=== PATIENT | male | born 1950 ===

== ENCOUNTER 2016-11-06 20:25 | Observation (INO) | payer MEDICARE, SELFPAY ==
[2016-11-06 20:26] VITALS: BMI 26.3
[2016-11-06] MEDS ORDERED: Albuterol-Ipratrop 3 mg / 0.5 (3 ml) UD INH STA (20:41)
[2016-11-06] MEDS ORDERED: Azithromycin 500 MG in Sodium Chloride 0.9% 250 ML IV STA (20:41)
[2016-11-06] MEDS ORDERED: Albuterol-Ipratrop 3 mg / 0.5 (3 ml) UD ONE (20:48)
[2016-11-06 20:56] LABS: BASO # 0.1 K/uL (0.0-0.2); BASO % 1.1 % (0.0-2.0); EOS # 0.2 K/uL (0.0-0.7); EOS % 1.9 % (0.0-4.0); HEMATOCRIT 34.5 % (35.0-51.0); LYMPH # 2.5 K/uL (1.0-4.3); LYMPH % 22.2 % (20.0-40.0); MEAN CELL VOLUME 70.4 fL (80.0-94.0); MEAN CORPUSCULAR HEMOGLOBIN 22.6 pg (27.0-31.0); MEAN CORPUSCULAR HGB CONC 32.1 g/dL (33.0-37.0); MONO # 0.8 K/uL (0.0-0.8); MONO % 6.9 % (0.0-10.0); RED CELL DISTRIBUTION WIDTH 19.9 % (11.5-14.5); WHITE BLOOD COUNT 11.4 K/uL (4.8-10.8)
[2016-11-06 21:25] LABS: ABG ALLEN TEST POS; ARTERIAL BLOOD HGB O2 SAT 95.9 % (95.0-98.0); CARBOXYHEMOGLOBIN 0 % (0.5-1.5); DRAW SITE RBA; HHB 4.1 % (0.0-5.0)
[2016-11-06] MEDS ORDERED: Azithromycin 500mg/250ML NS 250 ML IVPB ONE ×2 (21:25→21:28)
[2016-11-06 21:33] LABS: CHLORIDE 96 mmol/L (98-107); POTASSIUM 3.8 mmol/L (3.6-5.2); SODIUM 138 mmol/L (132-148)
[2016-11-06 21:35] LABS: BILIRUBIN,TOTAL 0.2 mg/dL (0.2-1.3); GFR AFRICAN-AMERICAN > 60
[2016-11-06 21:36] LABS: ALB/GLOB RATIO 1.4 (1.0-2.1); ALKALINE PHOSPHATASE 145 U/L (38-126); ALT/SGPT 36 U/L (21-72); AST/SGOT 31 U/L (17-59); BLOOD UREA NITROGEN 4 mg/dL (9-20); CARBON DIOXIDE 25 mmol/L (22-30); GLUCOSE,RANDOM 100 mg/dL (75-110)
[2016-11-06 21:37] LABS: CALCIUM 9.1 mg/dl (8.6-10.4)
--- NOTE | 2016-11-06 21:43 | C.PDOC ---
History Of Present Illness 66 year old patient, with a past medical history of anxiety, hypertension, hypercholesterolemia, arthritis, asthma, bronchitis, CHF, COPD, pneumonia, chronic kidney disease, diabetes, emphysema, gastritis, and sleep apnea, presents to the ED complaining of shortness of breath. Patient was recently admitted on 10/19/16 for COPD exacerbation. Patient is on home O2 at 2 liters for 24 hours a day. Patient denies chest pain, vomiting, abdominal pain, numbness or weakness. Time Seen by Provider: 11/06/16 20:37 Chief Complaint (Nursing): Shortness Of Breath History Per: Patient History/Exam Limitations: no limitations Onset/Duration Of Symptoms: Worse Since (today) Current Symptoms Are (Timing): Still Present Initiating Event: Upper Respiratory Illness Current Respiratory Medications: See Home Med List Severity: Mild Pain Scale Rating Of: 3 Reports Recently: Hospitalized Recent travel outside of the [place]: No Additional History Per: Prior Records Past Medical History Reviewed: Historical Data, Nursing Documentation, Vital Signs Vital Signs: Last Vital Signs Temp 97.6 F 11/06/16 22:42 Pulse 94 H 11/07/16 00:04 Resp 14 11/07/16 00:03 BP 115/67 11/07/16 00:03 Pulse Ox 99 11/07/16 00:03 - Medical History PMH: Anxiety, Arthritis (BACK; KNEES), Asthma, Bronchitis, CHF, COPD, Diabetes, Emphysema, Gastritis, HTN, Hypercholesterolemia, Pneumonia, Chronic Kidney Disease, Sleep Apnea - [facility] Procedures ASSISTANCE WITH RESPIRATORY VENTILATION, 24-96 HRS, CPAP (10/07/16) ASSISTANCE WITH RESPIRATORY VENTILATION, <24 HRS, CPAP (07/08/16) ASSISTANCE WITH RESPIRATORY VENTILATION, >96 HRS, CPAP (08/09/16) CONTINUOUS INVASIVE MECHANICAL VENTILATION <96 CONSEC HRS (11/29/14) INFLUENZA VACCINATION (06/02/14) INSERT ENDOTRACHEAL TUBE (11/29/14) LARYGNOSCOPY AND OTH TRACHEOSCOPY (04/18/15) MEASURE OF CARDIAC SAMPL & PRESSURE, L HEART, PERC APPROACH (12/01/15) NON-INVASIVE MECHANICAL VENTILATION (04/18/15) Family History: States: Unknown Family Hx - Social History Hx Tobacco Use: Yes (8 years ppd smoker. quit 1.5 years ago) Hx Alcohol Use: No Hx Substance Use: No - Immunization History Hx Tetanus Toxoid Vaccination: Yes Hx Influenza Vaccination: Yes Hx Pneumococcal Vaccination: Yes Review Of Systems Except As Marked, All Systems Reviewed And Found Negative. Cardiovascular: Negative for: Chest Pain Respiratory: Positive for: Shortness of Breath Gastrointestinal: Negative for: Vomiting, Abdominal Pain Neurological: Negative for: Weakness, Numbness Physical Exam - Physical Exam Appears: Non-toxic, Other (mild distress) Skin: Warm, Dry Head: Atraumatic, Normacephalic Eye(s): bilateral: Normal Inspection, PERRL, EOMI Ear(s): Bilateral: Normal Nose: Normal Oral Mucosa: Moist Throat: Normal Neck: Normal ROM, Supple Chest: Symmetrical Cardiovascular: Rhythm Regular (tachycardic) Respiratory: No Rales, No Rhonchi, No Wheezing, Other (distant lung sounds) Gastrointestinal/Abdominal: Soft, No Tenderness Back: Normal Inspection, No CVA Tenderness Extremity: Normal ROM Neurological/Psych: Oriented x3, Normal Speech, Normal Cognition Gait: Steady ED Course And Treatment - Laboratory Results Result Diagrams: 11/06/16 20:49 11/06/16 20:49 Lab Interpretation: Normal (abg wnl, no CO2 retention) ECG: Interpreted By Nv ECG Rhythm: Sinus Tachycardia ECG Interpretation: Abnormal Rate From EC (bpm) O2 Sat by Pulse Oximetry: 99 (RA) Pulse Ox Interpretation: Normal - Radiology CXR: Interpreted by Nv CXR Interpretation: Yes: No Acute Disease, Other (+ hyperinflated) Progress Note: Plan: ABG, EKG, Labs, Chest XR, Duoneb, Solu-Medrol, Zithromax Reevaluation Time: 21:43 Reassessment Condition: Improved - Physician Consult Information Outcome Of Conversation: [id number]: d/w Dr. Sarah lombardi to tele Obs Medical Decision Making Medical Decision Making: copd exacerbation Disposition Doctor Will See Patient In The: Hospital Counseled Patient/Family Regarding: Studies Performed, Diagnosis - Disposition Disposition: HOSPITALIZED Disposition Time: 21:43 Condition: GOOD - Clinical Impression Clinical Impression: Chronic obstructive lung disease - Scribe Statement The provider has reviewed the documentation as recorded by the Scribe Katie Benitez Provider Attestation: All medical record entries made by the Scribe were at my direction and personally dictated by me. I have reviewed the chart and agree that the record accurately reflects my personal performance of the history, physical exam, medical decision making, and the department course for this patient. I have also personally directed, reviewed, and agree with the discharge instructions and disposition.
[2016-11-06] MEDS: MethylPREDNISolone 40 mg Vial IVP SCH (22:44)
[2016-11-06] MEDS: (Novolin R) Insulin Human Regular 100 units/ml vial SC SCH (23:01)
[2016-11-07] MEDS ORDERED: Albuterol-Ipratrop 3 mg / 0.5 (3 ml) UD ONE (02:21)
[2016-11-07] MEDS: Albuterol-Ipratrop 3 mg / 0.5 (3 ml) UD INH SCH ×3 (02:22→13:20)
[2016-11-07] MEDS ORDERED: Fluticasone-Salmeterol 250-50mcg Diskus INH SCH (08:00)
[2016-11-07] MEDS ORDERED: Budesonide 0.5 mg/2 ml Inhal Susp UD INH SCH (08:00)
[2016-11-07] MEDS ORDERED: (Novolin R) Insulin Human Regular 100 units/ml vial ONE (08:11)
[2016-11-07] MEDS: (Novolin R) Insulin Human Regular 100 units/ml vial SC SCH ×2 (08:13→11:48)
--- NOTE | 2016-11-07 08:21 | RAD ---
PROCEDURE: CHEST RADIOGRAPH, 1 VIEW HISTORY: Shortness of breath COMPARISON: 10/19/2016 FINDINGS: LUNGS: Mild blunting of the left costophrenic angle. PLEURA: No pneumothorax or pleural fluid seen. CARDIOVASCULAR: Normal. OSSEOUS STRUCTURES: Degenerative changes in the spine. VISUALIZED UPPER ABDOMEN: Normal. OTHER FINDINGS: None. IMPRESSION: Mild blunting of the left costophrenic angle.
[2016-11-07] MEDS: MethylPREDNISolone 40 mg Vial IVP SCH (09:30)
[2016-11-07] MEDS ORDERED: (Lantus) Insulin Glargine, Recombinant SC ONE (09:35)
[2016-11-07] MEDS ORDERED: ARFORMOTEROL IH SCH (10:00)
[2016-11-07] MEDS ORDERED: (Lantus) Insulin Glargine, Recombinant SC SCH (10:00)
[2016-11-07] MEDS ORDERED: Enoxaparin 30 mg Syringe SC SCH (10:00)
[2016-11-07] MEDS ORDERED: Pantoprazole 40 mg EC Tab PO SCH (10:00)
--- NOTE | 2016-11-07 11:26 | CP.PCM.HP ---
History of Present Illness - History of Present Illness History of Present Illness: CC: shortness of breath 66 year old patient, with a past medical history of anxiety, hypertension, hypercholesterolemia, arthritis, asthma, bronchitis, CHF, COPD, pneumonia, chronic kidney disease, diabetes due to steriods , emphysema, gastritis, and sleep apnea, presents to the ED complaining of shortness of breath associated with chest tightness, chest congestion, coughing, denies any chest pain, blood sugars are good, he is complaint with diet, meds and follow up. Patient was recently admitted on 10/19/16 for COPD exacerbation. Patient is on home O2 at 2 liters for 24 hours a day. Patient denies chest pain, vomiting, abdominal pain, numbness or weakness. Review of Systems - Review of Systems Systems not reviewed;Unavailable: Acuity of Condition - Constitutional Constitutional: Fatigue, Lethargy - EENT Nose/Mouth/Throat: Nasal Congestion - Cardiovascular Cardiovascular: Dyspnea, Dyspnea on Exertion - Respiratory Respiratory: Cough, Dyspnea, Change in Mucous Color - Musculoskeletal Musculoskeletal: Arthralgias, Back Pain Past Patient History - Infectious Disease Hx of Infectious Diseases: None - Past Medical History & Family History Past Medical History?: Yes - Past Social History Smoking Status: Never Smoked - CARDIAC Hx Congestive Heart Failure: Yes Hx Hypercholesterolemia: Yes Hx Hypertension: Yes - PULMONARY Hx Asthma: Yes Hx Bronchitis: Yes Hx Chronic Obstructive Pulmonary Disease (COPD): Yes Hx Emphysema: Yes Hx Pneumonia: Yes Hx Sleep Apnea: Yes - NEUROLOGICAL Hx Neurological Disorder: No - HEENT Hx HEENT Problems: Yes Hx Cataracts: Yes (left cataract removed, r cataract) Other/Comment: wears eyeglasses for distance - RENAL Hx Chronic Kidney Disease: Yes - ENDOCRINE/METABOLIC Hx Endocrine Disorders: Yes Hx Diabetes Mellitus Type 2: Yes - HEMATOLOGICAL/ONCOLOGICAL Hx Blood Disorders: No - INTEGUMENTARY Hx Dermatological Problems: No - MUSCULOSKELETAL/RHEUMATOLOGICAL Hx Falls: Yes (Sunday11/05/16) - GASTROINTESTINAL Hx Gastritis: Yes - PSYCHIATRIC Hx Substance Use: No - SURGICAL HISTORY Hx Surgeries: Yes Hx Cataract Extraction: Yes (left eye, right eye) Hx Cardiac Catheterization: Yes (11/2015) Hx Eye Surgery: Yes Hx Pulmonary Surgery: Yes Other/Comment: LEFT EYE SURGERY - ANESTHESIA Hx Anesthesia: Yes Hx Anesthesia Reactions: No Hx Malignant Hyperthermia: No Meds Allergies/Adverse Reactions: Allergies Allergy/AdvReac Type Severity Reaction Status Date / Time acetaminophen [From Tylenol] Allergy RASH Verified 10/19/16 00:18 FISH Allergy SWELLING Verified 10/19/16 00:18 shrimp Allergy SHORTNESS Verified 10/19/16 00:18 OF BREATH Physical Exam - Constitutional Appears: No Acute Distress - Head Exam Head Exam: ATRAUMATIC, NORMAL INSPECTION, NORMOCEPHALIC - Eye Exam Eye Exam: EOMI, Normal appearance, PERRL Pupil Exam: NORMAL ACCOMODATION, PERRL - Respiratory Exam Respiratory Exam: Decreased Breath Sounds, Rhonchi, Wheezes - Cardiovascular Exam Cardiovascular Exam: REGULAR RHYTHM - GI/Abdominal Exam GI & Abdominal Exam: Normal Bowel Sounds, Soft. absent: Tenderness Results - Vital Signs Recent Vital Signs: Last Vital Signs Temp 97.6 F 11/06/16 22:42 Pulse 86 11/07/16 07:24 Resp 22 11/07/16 08:14 BP 106/72 11/07/16 07:24 Pulse Ox 99 11/07/16 08:14 - Labs Result Diagrams: 11/06/16 20:49 11/06/16 20:49 Labs: Laboratory Results - last 24 hr 11/06/16 11/07/16 22:51 08:04 POC Glucose (mg/dL) 109 239 H Assessment & Plan (1) Allergic rhinitis Status: Chronic Priority: Medium (2) Acute exacerbation of chronic obstructive pulmonary disease (COPD) Status: Acute Priority: High (3) Steroid-induced diabetes Status: Chronic - Assessment and Plan (Free Text) Plan: admoit pt detailed orders written
[2016-11-07 11:51] VITALS: RESP 20
--- NOTE | 2016-11-07 12:50 | CP.PCM.CON ---
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 The pt is here today for dyspnea w/ one episode of syncope that occurred on sunday late sunday night, the reports that the pt briefly lost consciousness but denied head trauma during that episode. The pt came to the ED after experiencing worsening symptoms of dyspnea. Pt is currently on 2L of home oxygen , currently on CPAP in the ED IPAP 12, EPAP 6, FiO2 30%, RR 10. Pt currently denies n/v/f/c, diarrhea, constipation, headache, LE edema, chest pain, palpitations. Review of Systems - Review of Systems All systems: reviewed and no additional remarkable complaints except - Constitutional Constitutional: absent: Chills, Fever - Cardiovascular Cardiovascular: Dyspnea, Syncope. absent: Chest Pain, Chest Pain at Rest, Leg Edema, Pedal Edema - Respiratory Respiratory: Dyspnea, Dyspnea on Exertion - Gastrointestinal Gastrointestinal: absent: Abdominal Pain, Constipation, Diarrhea - Neurological Neurological: Syncope, Vertigo. absent: Focal Weakness, Lack of Coordination, Loss of Vision, Tingling, Tremor, Weakness Past Patient History - Infectious Disease Hx of Infectious Diseases: None - Past Medical History & Family History Past Medical History?: Yes - Past Social History Smoking Status: Never Smoked - CARDIAC Hx Congestive Heart Failure: Yes Hx Hypercholesterolemia: Yes Hx Hypertension: Yes - PULMONARY Hx Asthma: Yes Hx Bronchitis: Yes Hx Chronic Obstructive Pulmonary Disease (COPD): Yes Hx Emphysema: Yes Hx Pneumonia: Yes Hx Sleep Apnea: Yes - NEUROLOGICAL Hx Neurological Disorder: No - HEENT Hx HEENT Problems: Yes Hx Cataracts: Yes (left cataract removed, r cataract) Other/Comment: wears eyeglasses for distance - RENAL Hx Chronic Kidney Disease: Yes - ENDOCRINE/METABOLIC Hx Endocrine Disorders: Yes Hx Diabetes Mellitus Type 2: Yes - HEMATOLOGICAL/ONCOLOGICAL Hx Blood Disorders: No - INTEGUMENTARY Hx Dermatological Problems: No - MUSCULOSKELETAL/RHEUMATOLOGICAL Hx Falls: Yes (Sunday11/05/16) - GASTROINTESTINAL Hx Gastritis: Yes - PSYCHIATRIC Hx Substance Use: No - SURGICAL HISTORY Hx Surgeries: Yes Hx Cataract Extraction: Yes (left eye, right eye) Hx Cardiac Catheterization: Yes (11/2015) Hx Eye Surgery: Yes Hx Pulmonary Surgery: Yes Other/Comment: LEFT EYE SURGERY - ANESTHESIA Hx Anesthesia: Yes Hx Anesthesia Reactions: No Hx Malignant Hyperthermia: No Meds Allergies/Adverse Reactions: Allergies Allergy/AdvReac Type Severity Reaction Status Date / Time acetaminophen [From Tylenol] Allergy RASH Verified 10/19/16 00:18 FISH Allergy SWELLING Verified 10/19/16 00:18 shrimp Allergy SHORTNESS Verified 10/19/16 00:18 OF BREATH - Medications Medications: Current Medications Albuterol/Ipratropium (Duoneb 3 Mg/0.5 Mg (3 Ml) Ud) 3 ml INH RQ6 [facility] Last Admin: 11/07/16 02:22 Dose: 3 ml Alprazolam (Xanax) 0.5 mg PO BID PRN PRN Reason: Anxiety Stop: 11/13/16 21:28 Budesonide (Pulmicort Respules) 0.5 mg INH RBID CHANCE Enoxaparin Sodium (Lovenox) 30 mg SC DAILY [facility] Last Admin: 11/07/16 09:29 Dose: 30 mg Home Med (Arformoterol Tartrate [Brovana]) 1 mauricio IH BID [facility] Insulin Glargine (Lantus) 16 unit SC DAILY [facility] Last Admin: 11/07/16 09:28 Dose: 16 units Insulin Human Regular (Novolin R) 4 unit SC ACHS [facility] Last Admin: 11/07/16 11:48 Dose: 4 unit Metformin HCl (Glucophage) 1,000 mg PO BID [facility] Last Admin: 11/07/16 09:28 Dose: 1,000 mg Methylprednisolone (Solu-Medrol) 40 mg IVP Q12 [facility] Last Admin: 11/07/16 09:30 Dose: 40 mg Montelukast Sodium (Singulair) 10 mg PO HS [facility] Last Admin: 11/06/16 23:02 Dose: 10 mg Pantoprazole Sodium (Protonix Ec Tab) 40 mg PO DAILY [facility] Last Admin: 11/07/16 09:31 Dose: 40 mg Roflumilast (Daliresp) 500 mcg PO DAILY [facility] Last Admin: 11/07/16 09:28 Dose: 500 mcg Rosuvastatin Calcium (Crestor) 10 mg PO HS [facility] Last Admin: 11/06/16 23:02 Dose: 10 mg Fluticasone/Salmeterol (Advair Diskus 250/50) 1 puff INH RBID CHANCE Physical Exam - Constitutional Appears: Well, Non-toxic, No Acute Distress - Head Exam Head Exam: ATRAUMATIC, NORMAL INSPECTION - Eye Exam Eye Exam: Normal appearance - ENT Exam ENT Exam: Normal Exam - Neck Exam Neck exam: Positive for: Normal Inspection - Respiratory Exam Respiratory Exam: Decreased Breath Sounds - Cardiovascular Exam Cardiovascular Exam: REGULAR RHYTHM, +S1, +S2 - Neurological Exam Neurological exam: Alert, Oriented x3 - Skin Skin Exam: Dry, Normal Color, Warm Results - Vital Signs Recent Vital Signs: Last Vital Signs Temp 97.7 F 11/07/16 11:35 Pulse 100 H 11/07/16 11:35 Resp 20 11/07/16 11:35 BP 123/77 11/07/16 11:35 Pulse Ox 96 11/07/16 11:35 - Labs Result Diagrams: 11/06/16 20:49 11/06/16 20:49 Labs: Laboratory Results - last 24 hr 11/06/16 11/07/16 11/07/16 22:51 08:04 11:28 POC Glucose (mg/dL) 109 239 H 244 H Assessment & Plan - Assessment and Plan (Free Text) Assessment: Acute COPD Exacerbation Plan: (1) Acute exacerbation of chronic obstructive pulmonary disease (COPD) -continue duoneb treatments -continue IV solumedrol -continue recommendations by medicine team -will monitor for worsening symptoms of respiratory distress - Date & Time Date: 11/07/16 Time: 12:51
[2016-11-07 15:56] VITALS: BP 103/81; PULSE 107; TEMP 97.3; O2SAT 100
--- NOTE | 2016-11-08 21:05 | CP.PCM.DIS ---
Provider - Provider Date of Admission: 11/06/16 21:43 Attending physician: Hal Garcia MD Diagnosis - Discharge Diagnosis (1) Allergic rhinitis Status: Chronic Priority: Medium (2) Acute exacerbation of chronic obstructive pulmonary disease (COPD) Status: Acute Priority: High (3) Steroid-induced diabetes Status: Chronic Hospital Course - Lab Results Lab Results: Most Recent Lab Values WBC 11.4 K/uL (4.8-10.8) H 11/06/16 20:49 RBC 4.91 Mil/uL (4.40-5.90) 11/06/16 20:49 Hgb 11.1 g/dL (12.0-18.0) L 11/06/16 20:49 Hct 34.5 % (35.0-51.0) L 11/06/16 20:49 MCV 70.4 fL (80.0-94.0) L 11/06/16 20:49 MCH 22.6 pg (27.0-31.0) L 11/06/16 20:49 MCHC 32.1 g/dL (33.0-37.0) L 11/06/16 20:49 RDW 19.9 % (11.5-14.5) H 11/06/16 20:49 Plt Count 307 K/uL (130-400) 11/06/16 20:49 MPV 8.0 fL (7.2-11.7) 11/06/16 20:49 Neut % (Auto) 67.9 % (50.0-75.0) 11/06/16 20:49 Lymph % (Auto) 22.2 % (20.0-40.0) 11/06/16 20:49 Ceiba % (Auto) 6.9 % (0.0-10.0) 11/06/16 20:49 Eos % (Auto) 1.9 % (0.0-4.0) 11/06/16 20:49 Baso % (Auto) 1.1 % (0.0-2.0) 11/06/16 20:49 Neut # 7.7 K/uL (1.8-7.0) H 11/06/16 20:49 Lymph # 2.5 K/uL (1.0-4.3) 11/06/16 20:49 Ceiba # 0.8 K/uL (0.0-0.8) 11/06/16 20:49 Eos # 0.2 K/uL (0.0-0.7) 11/06/16 20:49 Baso # 0.1 K/uL (0.0-0.2) 11/06/16 20:49 Puncture Site Rba 11/06/16 21:22 pCO2 38 mm/Hg (35-45) 11/06/16 21:22 pO2 104 mm/Hg (80-100) H 11/06/16 21:22 HCO3 27.3 mmol/L (21-28) 11/06/16 21:22 ABG pH 7.46 (7.35-7.45) H 11/06/16 21:22 ABG Total CO2 28.2 mmol/L (22-28) H 11/06/16 21:22 ABG O2 Saturation 95.9 % (95-98) 11/06/16 21:22 ABG Base Excess 3.0 mmol/L (-2.0-3.0) 11/06/16 21:22 ABG Hemoglobin 10.6 g/dL (11.7-17.4) L 11/06/16 21:22 ABG Carboxyhemoglobin 0 % (0.5-1.5) L 11/06/16 21:22 POC ABG HHb (Measured) 4.1 % (0.0-5.0) 11/06/16 21:22 ABG Methemoglobin 0.0 % (0.0-3.0) 11/06/16 21:22 Jesus Test Pos 11/06/16 21:22 A-a O2 Difference 62.0 mm/Hg 11/06/16 21:22 Respiratory Index 0.6 11/06/16 21:22 Hgb O2 Saturation 95.9 % (95.0-98.0) 11/06/16 21: Liter Flow 3.0 11/06/16 21:22 FiO2 30.0 % 11/06/16 21:22 Sodium 138 mmol/L (132-148) 11/06/16 20:49 Potassium 3.8 mmol/L (3.6-5.2) 11/06/16 20:49 Chloride 96 mmol/L (98-107) L 11/06/16 20:49 Carbon Dioxide 25 mmol/L (22-30) 11/06/16 20:49 Anion Gap 20 (10-20) 11/06/16 20:49 BUN 4 mg/dL (9-20) L 11/06/16 20:49 Creatinine 0.5 MG/DL (0.8-1.5) L 11/06/16 20:49 Est GFR ( Amer) > 60 11/06/16 20:49 Est GFR (Non-Af Amer) > 60 11/06/16 20:49 POC Glucose (mg/dL) 244 mg/dL (65-110) H 11/07/16 11:28 Random Glucose 100 mg/dL (75-110) 11/06/16 20:49 Calcium 9.1 mg/dl (8.6-10.4) 11/06/16 20:49 Total Bilirubin 0.2 mg/dL (0.2-1.3) 11/06/16 20:49 AST 31 U/L (17-59) 11/06/16 20:49 ALT 36 U/L (21-72) 11/06/16 20:49 Alkaline Phosphatase 145 U/L (38-126) H 11/06/16 20:49 Troponin I < 0.0120 ng/mL (0.00-0.120) 11/06/16 20:49 NT-Pro-B Natriuret Pep 34.8 pg/mL (0-900) 11/06/16 20:49 Total Protein 7.0 g/dL (6.3-8.3) 11/06/16 20:49 Albumin 4.1 g/dL (3.5-5.0) 11/06/16 20:49 Globulin 2.9 gm/dL (2.2-3.9) 11/06/16 20:49 Albumin/Globulin Ratio 1.4 (1.0-2.1) 11/06/16 20:49 Influenza Typ A,B (EIA) Negative for flu a/b (NEGATIVE) 11/06/16 20:40 - Hospital Course Hospital Course: Pt seen & examined, is discharged home, less short of breath, states taht he feels better after treatment, will follow out pateint Discharge Exam - Head Exam Head Exam: ATRAUMATIC, NORMAL INSPECTION - Eye Exam Eye Exam: EOMI, Normal appearance, PERRL Pupil Exam: NORMAL ACCOMODATION, PERRL - ENT Exam ENT Exam: Mucous Membranes Moist - Respiratory Exam Respiratory Exam: Clear to PA & Lateral, NORMAL BREATHING PATTERN - Cardiovascular Exam Cardiovascular Exam: REGULAR RHYTHM, +S1, +S2 - GI/Abdominal Exam GI & Abdominal Exam: Normal Bowel Sounds - Neurological Exam Neurological exam: Alert, CN II-XII Intact, Normal Gait, Oriented x3, Reflexes Normal Discharge Plan - Follow Up Plan Condition: GOOD Disposition: HOME/ ROUTINE Instructions: Heart Failure (DC), COPD (Chronic Obstructive Pulmonary Disease) (DC) Additional Instructions: Follow up with Dr Garcia in the office in one week Referrals: Hal Garcia MD [Staff Provider] -
--- NOTE | 2016-11-09 19:49 | CARD ---
APPROVED REPORT EKG Measurement Heart [id number] <Conclusion> Sinus tachycardia Rightward axis Borderline ECG
== END 2016-11-07 16:30 | disposition home or self-care (01) ==
LOC: C.ER 20:25 → C.9E 21:43 → C.6T 11-07 10:52
PROVIDERS: ADMIT Internal Medicine; ATTEND Internal Medicine
DX: J44.9 Chronic obstructive pulmonary disease, unspecified (principal); E13.22 Other specified diabetes mellitus with diabetic chronic kidney disease; I13.0 Hypertensive heart and chronic kidney disease with heart failure and stage 1 through stage 4 chronic kidney disease, or unspecified chronic kidney disease; N18.9 Chronic kidney disease, unspecified; Z79.4 Long term (current) use of insulin; E78.00 Pure hypercholesterolemia, unspecified
CPT/HCPCS: 36600; 71010; 80053; 82803; 82948; 83880; 84484; 85025; 87040; 87804; 93005; 94640; 94660; 96365; 96372; 96375; 96376; 99285; G0378; J0456; J1650; J2920; J2930; J7050

== ENCOUNTER 2016-11-20 18:06 | Observation (INO) | payer MEDICARE, OTHER ==
[2016-11-20 18:06] VITALS: BMI 26.3
[2016-11-20 18:39] LABS: BASO # 0.1 K/uL (0.0-0.2); BASO % 0.8 % (0.0-2.0); EOS # 0.2 K/uL (0.0-0.7); EOS % 1.5 % (0.0-4.0); HEMATOCRIT 33.6 % (35.0-51.0); LYMPH # 1.6 K/uL (1.0-4.3); MEAN CELL VOLUME 69.6 fL (80.0-94.0); MEAN CORPUSCULAR HGB CONC 31.6 g/dL (33.0-37.0); MEAN PLATELET VOLUME 8.3 fL (7.2-11.7); MONO # 0.8 K/uL (0.0-0.8); MONO % 6.5 % (0.0-10.0); RED CELL DISTRIBUTION WIDTH 19.2 % (11.5-14.5); WHITE BLOOD COUNT 12.6 K/uL (4.8-10.8)
[2016-11-20 18:45] LABS: CHLORIDE 92 mmol/L (98-107); POTASSIUM 3.9 mmol/L (3.6-5.2); SODIUM 138 mmol/L (132-148)
[2016-11-20 18:47] LABS: AST/SGOT 38 U/L (17-59); BILIRUBIN,TOTAL 0.2 mg/dL (0.2-1.3); CARBON DIOXIDE 28 mmol/L (22-30); GFR AFRICAN-AMERICAN > 60
[2016-11-20 18:48] LABS: ALB/GLOB RATIO 1.6 (1.0-2.1); ALKALINE PHOSPHATASE 144 U/L (38-126); ALT/SGPT 43 U/L (21-72); BLOOD UREA NITROGEN 10 mg/dL (9-20); CALCIUM 9.1 mg/dl (8.6-10.4); GLUCOSE,RANDOM 209 mg/dL (75-110)
[2016-11-20] MEDS: Albuterol-Ipratrop 3 mg / 0.5 (3 ml) UD IH SCH ×2 (18:50→20:23)
--- NOTE | 2016-11-20 19:55 | C.PDOC ---
Time Seen by Provider: 11/20/16 18:14 Chief Complaint (Nursing): Shortness Of Breath History Per: Patient Onset/Duration Of Symptoms: Hrs Current Symptoms Are (Timing): Still Present Current Respiratory Medications: See Home Med List Severity: Moderate Associated Symptoms: Chest Pain Reports Recently: Hospitalized Additional History Per: Prior Records Past Medical History Reviewed: Historical Data, Nursing Documentation, Vital Signs Vital Signs: Last Vital Signs Temp 97.9 F 11/20/16 18:16 Pulse 133 H 11/20/16 18:16 Resp 26 H 11/20/16 18:25 BP 126/82 11/20/16 18:16 Pulse Ox 98 11/20/16 18:25 - Medical History PMH: Anxiety, Arthritis (BACK; KNEES), Asthma, Bronchitis, CHF, COPD, Diabetes, Emphysema, Gastritis, HTN, Hypercholesterolemia, Pneumonia, Chronic Kidney Disease, Sleep Apnea - [facility] Procedures ASSISTANCE WITH RESPIRATORY VENTILATION, 24-96 HRS, CPAP (10/07/16) ASSISTANCE WITH RESPIRATORY VENTILATION, <24 HRS, CPAP (07/08/16) ASSISTANCE WITH RESPIRATORY VENTILATION, >96 HRS, CPAP (08/09/16) CONTINUOUS INVASIVE MECHANICAL VENTILATION <96 CONSEC HRS (11/29/14) INFLUENZA VACCINATION (06/02/14) INSERT ENDOTRACHEAL TUBE (11/29/14) LARYGNOSCOPY AND OTH TRACHEOSCOPY (04/18/15) MEASURE OF CARDIAC SAMPL & PRESSURE, L HEART, PERC APPROACH (12/01/15) NON-INVASIVE MECHANICAL VENTILATION (04/18/15) Family History: States: Unknown Family Hx - Social History Hx Tobacco Use: Yes (8 years ppd smoker. quit 1.5 years ago) Hx Alcohol Use: No Hx Substance Use: No - Immunization History Hx Tetanus Toxoid Vaccination: Yes Hx Influenza Vaccination: Yes Hx Pneumococcal Vaccination: Yes Review Of Systems Except As Marked, All Systems Reviewed And Found Negative. Constitutional: Negative for: Fever, Weakness Cardiovascular: Positive for: Chest Pain Respiratory: Positive for: Shortness of Breath, Wheezing. Negative for: Hemoptysis Gastrointestinal: Negative for: Vomiting, Abdominal Pain Musculoskeletal: Negative for: Neck Pain, Back Pain, Leg Pain Neurological: Negative for: Weakness, Numbness, Seizures, Altered Mental Status Physical Exam - Physical Exam Appears: In Acute Distress (mild), Chronically Ill Skin: Normal Color, Warm, Dry Head: Atraumatic, Normacephalic Eye(s): bilateral: PERRL, EOMI Neck: Normal ROM, Supple Cardiovascular: Rhythm Regular Respiratory: No Accessory Muscle Use, Wheezing Gastrointestinal/Abdominal: Soft, No Tenderness Back: No CVA Tenderness Extremity: Normal ROM Neurological/Psych: Oriented x3, Normal Motor, Normal Sensation ED Course And Treatment - Laboratory Results Result Diagrams: 11/20/16 18:34 11/20/16 18:34 ECG: Interpreted By Me, Viewed By Me ECG Rhythm: Sinus Tachycardia, Nonspecific Changes Rate From EC O2 Sat by Pulse Oximetry: 98 Pulse Ox Interpretation: Normal - Radiology CXR: Interpreted by Me, Viewed By Me CXR Interpretation: Yes: No Acute Disease Progress - Interventions Interventions:: Observation, Oxygen - Medications Administered Inhaled nebulized: Anticholinergic, Beta-2 agonist Intravenous: Corticosteroid - Data Reviewed Data Reviewed: Lab, Diagnostic imaging, EKG, Old records - Patient Status Patient status: Partially improved - Critical Care Citical Care: Excluding Proc Time Critical Care Time: 45 minutes - Continuity of Care Discussed patient case with:: Patient, ED Nurse, PMD Disposition Discussed With : Hal Garcia Comment: He accepted pt on his service. Doctor Will See Patient In The: Hospital Counseled Patient/Family Regarding: Studies Performed, Diagnosis - Disposition Disposition: HOSPITALIZED Disposition Time: 19:57 Condition: FAIR - Clinical Impression Clinical Impression: COPD exacerbation
[2016-11-20] MEDS ORDERED: Albuterol-Ipratrop 3 mg / 0.5 (3 ml) UD ONE (20:20)
[2016-11-20] MEDS: (Novolog) Insulin Aspart, Recombinant 100 u/ml 10 ml vial SC SCH (22:07)
[2016-11-20] MEDS ORDERED: (Novolin R) Insulin Human Regular 100 units/ml vial ONE (22:10)
[2016-11-20] MEDS: (Novolin R) Insulin Human Regular 100 units/ml vial SC SCH (22:15)
--- NOTE | 2016-11-20 23:36 | CP.PCM.HP ---
History of Present Illness - History of Present Illness History of Present Illness: CHeif complain: acute cough, shortness of breath x 6 hours 66 year old male well known to me with h/o severe end stage COPD, chronic resp failure, on home oxygen, steriods, nebulizer, long sanding illness and recurrent hospitalizations, who c/o cough, congestion, wheezing, dyspnea acute onset at rest worst with exertion,anorexia, generalized weakness and fatigue, pt attempted to use his nebulzer, O2 at home but no symptoms resolved so he called 911 and came in ER. pt is anxious and also complaining of pain in left flank radiating to left thigh not aggravated on movement. Allergies: tylenol PMH: COPD, allergic rhinitis steroid induced diabetes Present on Admission - Present on Admission Any Indicators Present on Admission: No Review of Systems - Review of Systems Systems not reviewed;Unavailable: Acuity of Condition, Respiratory Distress - Constitutional Constitutional: Fatigue, Lethargy, Malaise, Weakness - EENT Eyes: absent: As Per HPI, Blind Spots, Blurred Vision, Change in Vision, Decreased Night Vision, Diplopia, Discharge, Dry Eye, Exophthalmos, Floaters, Irritation, Itchy Eyes, Loss of Peripheral Vision, Pain, Photophobia, Requires Corrective Lenses, Sees Flashes, Spots in Vision, Tunnel Vision, Other Visual Disturbances, Loss of Vision, Other Ears: absent: As Per HPI, Decreased Hearing, Ear Discharge, Ear Pain, Tinnitus, Abnormal Hearing, Disequilibrium, Dizziness, Other Nose/Mouth/Throat: Nasal Congestion - Cardiovascular Cardiovascular: Chest Pain, Dyspnea - Respiratory Respiratory: Cough, Dyspnea on Exertion, Wheezing, Pain on Inspiration, Chest Congestion, Excessive Mucous Production, Pain with Coughing - Gastrointestinal Gastrointestinal: absent: As Per HPI, Abdominal Pain, Belching, Bloating, Change in Bowel Habits, Change in Stool Character, Coffee Ground Emesis, Constipation, Cramping, Diarrhea, Dyspepsia, Dysphagia, Early Satiety, Excessive Flatus, Fecal Incontinence, Heartburn, Hematemesis, Hematochezia, Loose Stools, Melena, Nausea, Odynophagia, Temesmus, Vomiting, Other - Genitourinary Genitourinary: Flank Pain - Musculoskeletal Musculoskeletal: Muscle Weakness, Myalgias - Psychiatric Psychiatric: Anxiety - Endocrine Endocrine: Change in Body Appearance, Fatigue Past Patient History - Infectious Disease Hx of Infectious Diseases: None - Past Medical History & Family History Past Medical History?: Yes - Past Social History Smoking Status: Never Smoked - CARDIAC Hx Congestive Heart Failure: Yes Hx Hypercholesterolemia: Yes Hx Hypertension: Yes - PULMONARY Hx Asthma: Yes Hx Bronchitis: Yes Hx Chronic Obstructive Pulmonary Disease (COPD): Yes Hx Emphysema: Yes Hx Pneumonia: Yes Hx Sleep Apnea: Yes - NEUROLOGICAL Hx Neurological Disorder: No - HEENT Hx HEENT Problems: Yes Hx Cataracts: Yes (left cataract removed, r cataract) Other/Comment: wears eyeglasses for distance - RENAL Hx Chronic Kidney Disease: Yes - ENDOCRINE/METABOLIC Hx Endocrine Disorders: Yes Hx Diabetes Mellitus Type 2: Yes - HEMATOLOGICAL/ONCOLOGICAL Hx Blood Disorders: No - INTEGUMENTARY Hx Dermatological Problems: No - MUSCULOSKELETAL/RHEUMATOLOGICAL Hx Arthritis: Yes (BACK; KNEES) - GASTROINTESTINAL Hx Gastritis: Yes - PSYCHIATRIC Hx Anxiety: Yes Hx Substance Use: No - SURGICAL HISTORY Hx Surgeries: Yes Hx Cardiac Catheterization: Yes (11/2015) - ANESTHESIA Hx Anesthesia: Yes Hx Anesthesia Reactions: No Hx Malignant Hyperthermia: No Meds Allergies/Adverse Reactions: Allergies Allergy/AdvReac Type Severity Reaction Status Date / Time acetaminophen [From Tylenol] Allergy RASH Verified 12/25/16 23:46 FISH Allergy SWELLING Verified 12/25/16 23:46 shrimp Allergy SHORTNESS Verified 12/25/16 23:46 OF BREATH Physical Exam - Constitutional Appears: No Acute Distress, Chronically Ill - Eye Exam Eye Exam: EOMI, Normal appearance, PERRL Pupil Exam: NORMAL ACCOMODATION, PERRL - ENT Exam ENT Exam: Mucous Membranes Moist - Respiratory Exam Respiratory Exam: Decreased Breath Sounds, Rhonchi, Wheezes - Cardiovascular Exam Cardiovascular Exam: REGULAR RHYTHM Additional comments: barrel shaped chest - GI/Abdominal Exam GI & Abdominal Exam: Normal Bowel Sounds, Soft. absent: Tenderness - Neurological Exam Neurological exam: Alert, CN II-XII Intact, Normal Gait, Oriented x3, Reflexes Normal - Psychiatric Exam Psychiatric exam: Anxious - Skin Additional comments: paper thin skin with brusies Results - Vital Signs Recent Vital Signs: Last Vital Signs Temp 97.9 F 11/20/16 22:41 Pulse 136 H 11/20/16 22:41 Resp 20 11/20/16 22:41 BP 108/75 11/20/16 22:41 Pulse Ox 98 11/20/16 22:41 - Labs Result Diagrams: 11/22/16 14:24 11/22/16 14:24 Labs: Laboratory Results - last 24 hr 11/20/16 22:06 POC Glucose (mg/dL) 290 H Assessment & Plan (1) COPD exacerbation Status: Acute Priority: Medium (2) Anxiety disorder Status: Resolved (3) Steroid-induced diabetes Status: Chronic (4) SOB (shortness of breath) Status: Acute
[2016-11-21] MEDS: Albuterol-Ipratrop 3 mg / 0.5 (3 ml) UD INH SCH ×4 (01:04→19:12)
[2016-11-21] MEDS: Fluticasone-Salmeterol 250-50mcg Diskus INH SCH ×2 (07:27→19:12)
[2016-11-21] MEDS: Budesonide 0.5 mg/2 ml Inhal Susp UD INH SCH ×2 (07:27→19:12)
[2016-11-21] MEDS: (Novolog) Insulin Aspart, Recombinant 100 u/ml 10 ml vial SC SCH ×4 (08:18→21:36)
[2016-11-21] MEDS: (Novolin R) Insulin Human Regular 100 units/ml vial SC SCH ×4 (08:19→21:35)
--- NOTE | 2016-11-21 08:28 | RAD ---
PROCEDURE: CHEST RADIOGRAPH, 1 VIEW HISTORY: Shortness of breath COMPARISON: 11/06/2016 FINDINGS: LUNGS: Increased markings at the lung bases suggestive for bibasilar atelectasis with question trace right pleural effusion. Upper lobe granulomatous changes. PLEURA: No pneumothorax or pleural fluid seen. CARDIOVASCULAR: Normal. OSSEOUS STRUCTURES: No significant abnormalities. VISUALIZED UPPER ABDOMEN: Normal. OTHER FINDINGS: None. IMPRESSION: Increased markings at the lung bases suggestive for bibasilar atelectasis with question trace right pleural effusion. Upper lobe granulomatous changes.
[2016-11-21] MEDS ORDERED: ARFORMOTEROL IH SCH (10:00)
[2016-11-21] MEDS: Enoxaparin 40 mg Syringe SC SCH (10:17)
[2016-11-21] MEDS: Lidocaine 5% Patch TD SCH (10:17)
[2016-11-21] MEDS: Promethazine/Cod 6.25mg-10mg/5ml Syr UD PO PRN (10:18)
[2016-11-21] MEDS: (Lantus) Insulin Glargine, Recombinant SC SCH (10:18)
--- NOTE | 2016-11-21 16:30 | CP.PCM.CON ---
History of Present Illness - History of Present Illness History of Present Illness: 66 y/o male oresents for shortness of breath that started Sunday morning for which he took his prescribed medication. At 4 PM he had no improvement so he presented to hospital for shortness of breath with dizziness and black spots. He is a severe COPD patient on home O2 known to my office and frequently admitted for shortness of breath. He is a patient of long standing illness and was most recently hospitalized last week for the same complaint. Pulmonology was consulted for COPD. Pt denies any recent illness or productive cough. He is taking medications as prescribed but insisted that he still doesn't feel any better. Pmhx: COPD, DMII, HTN, tachycardia, Pshx: cardica cath, cataract removal (2015) Famhx: no pertinent family hx SShx: lives with , quit smoking 4 years ago (formerly 2-3 ppd for 30 years). Review of Systems - Constitutional Constitutional: absent: Chills, Fever, Headache - EENT Eyes: absent: Change in Vision Nose/Mouth/Throat: absent: Nasal Congestion, Nasal Discharge - Cardiovascular Cardiovascular: Dyspnea. absent: Chest Pain, Chest Pain at Rest - Respiratory Respiratory: Dyspnea on Exertion, Wheezing. absent: Cough - Gastrointestinal Gastrointestinal: Abdominal Pain (Associated with coughing wrapping from back down to epigastrium). absent: Constipation, Diarrhea - Neurological Neurological: absent: Abnormal Hearing, Headaches Past Patient History - Infectious Disease Hx of Infectious Diseases: None - Past Medical History & Family History Past Medical History?: Yes - Past Social History Smoking Status: Former Smoker - CARDIAC Hx Congestive Heart Failure: Yes Hx Hypercholesterolemia: Yes Hx Hypertension: Yes - PULMONARY Hx Asthma: Yes Hx Bronchitis: Yes Hx Chronic Obstructive Pulmonary Disease (COPD): Yes Hx Emphysema: Yes Hx Pneumonia: Yes Hx Sleep Apnea: Yes - NEUROLOGICAL Hx Neurological Disorder: No - HEENT Hx HEENT Problems: Yes Hx Cataracts: Yes (left cataract removed, r cataract) Other/Comment: wears eyeglasses for distance - RENAL Hx Chronic Kidney Disease: Yes - ENDOCRINE/METABOLIC Hx Endocrine Disorders: Yes Hx Diabetes Mellitus Type 2: Yes - HEMATOLOGICAL/ONCOLOGICAL Hx Blood Disorders: No - INTEGUMENTARY Hx Dermatological Problems: No - MUSCULOSKELETAL/RHEUMATOLOGICAL Hx Falls: Yes - GASTROINTESTINAL Hx Gastritis: Yes - PSYCHIATRIC Hx Substance Use: No - SURGICAL HISTORY Hx Surgeries: Yes Hx Cardiac Catheterization: Yes (11/2015) - ANESTHESIA Hx Anesthesia: Yes Hx Anesthesia Reactions: No Hx Malignant Hyperthermia: No Meds Allergies/Adverse Reactions: Allergies Allergy/AdvReac Type Severity Reaction Status Date / Time acetaminophen [From Tylenol] Allergy RASH Verified 11/20/16 18:12 FISH Allergy SWELLING Verified 11/20/16 18:12 shrimp Allergy SHORTNESS Verified 11/20/16 18:12 OF BREATH - Medications Medications: Current Medications Albuterol/Ipratropium (Duoneb 3 Mg/0.5 Mg (3 Ml) Ud) 3 ml INH RQ6 [facility] Last Admin: 11/21/16 13:30 Dose: 3 ml Alprazolam (Xanax) 0.5 mg PO BID PRN PRN Reason: Anxiety Stop: 11/27/16 20:33 Last Admin: 11/21/16 10:17 Dose: 0.5 mg Budesonide (Pulmicort Respules) 0.5 mg INH RBID [facility] Last Admin: 11/21/16 07:27 Dose: 0.5 mg Enoxaparin Sodium (Lovenox) 40 mg SC DAILY [facility] Last Admin: 11/21/16 10:17 Dose: 40 mg Insulin Aspart (Novolog) 0 unit SC ACHS [facility] PRN Reason: Protocol Last Admin: 11/21/16 12:33 Dose: 1 unit Insulin Glargine (Lantus) 16 unit SC DAILY [facility] Last Admin: 11/21/16 10:18 Dose: 16 u Insulin Human Regular (Novolin R) 4 unit SC ACHS [facility] Last Admin: 11/21/16 12:32 Dose: 1 unit Lidocaine (Lidoderm) 1 ea TD DAILY [facility] Last Admin: 11/21/16 10:17 Dose: 1 ea Metformin HCl (Glucophage) 1,000 mg PO BID [facility] Last Admin: 11/21/16 10:17 Dose: 1,000 mg Methylprednisolone (Solu-Medrol) 40 mg IVP Q12 [facility] Montelukast Sodium (Singulair) 10 mg PO HS [facility] Last Admin: 11/20/16 22:15 Dose: 10 mg Promethazine HCl/Codeine (Phenergan/Codeine Oral Syrup) 5 ml PO Q8 PRN PRN Reason: Cough Last Admin: 11/21/16 10:18 Dose: 5 ml Roflumilast (Daliresp) 500 mcg PO DAILY [facility] Fluticasone/Salmeterol (Advair Diskus 250/50) 1 puff INH RBID [facility] Last Admin: 11/21/16 07:27 Dose: Not Given Physical Exam - Constitutional Appears: Non-toxic, No Acute Distress - Head Exam Head Exam: NORMAL INSPECTION - Eye Exam Eye Exam: Normal appearance, PERRL Pupil Exam: NORMAL ACCOMODATION - ENT Exam ENT Exam: Mucous Membranes Moist - Neck Exam Neck exam: Positive for: Normal Inspection - Respiratory Exam Respiratory Exam: Decreased Breath Sounds, Clear to Auscultation Bilateral, NORMAL BREATHING PATTERN. absent: Rales, Rhonchi, Wheezes - Cardiovascular Exam Cardiovascular Exam: REGULAR RHYTHM, +S1, +S2. absent: Gallop, Systolic Murmur - GI/Abdominal Exam GI & Abdominal Exam: Normal Bowel Sounds, Soft. absent: Tenderness - Extremities Exam Extremities exam: Positive for: normal capillary refill, normal inspection. Negative for: pedal edema - Neurological Exam Neurological exam: Alert, Oriented x3 - Psychiatric Exam Psychiatric exam: Normal Affect, Normal Mood - Skin Skin Exam: Dry, Intact, Warm Results - Vital Signs Recent Vital Signs: Last Vital Signs Temp 97.6 F 11/21/16 07:40 Pulse 88 11/21/16 08:00 Resp 18 11/21/16 07:40 BP 122/77 11/21/16 07:40 Pulse Ox 100 11/21/16 07:40 - Labs Result Diagrams: 11/20/16 18:34 11/20/16 18:34 Labs: Laboratory Results - last 24 hr 11/20/16 11/21/16 11/21/16 22:06 02:03 06:12 POC Glucose (mg/dL) 290 H 347 H 293 H 11/21/16 11:21 POC Glucose (mg/dL) 198 H Assessment & Plan - Assessment and Plan (Free Text) Assessment: COPD Exacerbation Plan: Patient is at close to baseline and is a severe COPD patient known to outpatient office. Continue solumedrol 40mg IVP q12h. Slight leukocytosis due to solumedrol. Current CXR shows increased venous markings suggestive of bibasilar atelectasis.
--- NOTE | 2016-11-21 21:29 | CP.PCM.PN ---
Subjective - Date & Time of Evaluation Date of Evaluation: 11/21/16 Time of Evaluation: 14:17 - Subjective Subjective: Pt seen and examined, is less coughing, less short of breath also seen by pulmonology Objective - Vital Signs/Intake and Output Vital Signs (last 24 hours): Temp Pulse Resp BP Pulse Ox 98.2 F 115 H 20 106/68 99 11/21/16 16:28 11/21/16 16:31 11/21/16 16:28 11/21/16 16:28 11/21/16 16:31 - Medications Medications: Current Medications Albuterol/Ipratropium (Duoneb 3 Mg/0.5 Mg (3 Ml) Ud) 3 ml INH RQ6 [facility] Last Admin: 11/21/16 19:12 Dose: 3 ml Alprazolam (Xanax) 0.5 mg PO BID PRN PRN Reason: Anxiety Stop: 11/27/16 20:33 Last Admin: 11/21/16 10:17 Dose: 0.5 mg Budesonide (Pulmicort Respules) 0.5 mg INH RBID [facility] Last Admin: 11/21/16 19:12 Dose: 0.5 mg Enoxaparin Sodium (Lovenox) 40 mg SC DAILY [facility] Last Admin: 11/21/16 10:17 Dose: 40 mg Insulin Aspart (Novolog) 0 unit SC ACHS [facility] PRN Reason: Protocol Last Admin: 11/21/16 17:29 Dose: Not Given Insulin Glargine (Lantus) 16 unit SC DAILY [facility] Last Admin: 11/21/16 10:18 Dose: 16 u Insulin Human Regular (Novolin R) 4 unit SC ACHS [facility] Last Admin: 11/21/16 17:28 Dose: Not Given Lidocaine (Lidoderm) 1 ea TD DAILY [facility] Last Admin: 11/21/16 10:17 Dose: 1 ea Metformin HCl (Glucophage) 1,000 mg PO BID [facility] Last Admin: 11/21/16 17:27 Dose: 1,000 mg Methylprednisolone (Solu-Medrol) 40 mg IVP Q12 [facility] Montelukast Sodium (Singulair) 10 mg PO HS [facility] Last Admin: 11/20/16 22:15 Dose: 10 mg Promethazine HCl/Codeine (Phenergan/Codeine Oral Syrup) 5 ml PO Q8 PRN PRN Reason: Cough Last Admin: 11/21/16 10:18 Dose: 5 ml Roflumilast (Daliresp) 500 mcg PO DAILY [facility] Last Admin: 11/21/16 17:28 Dose: 500 mcg Fluticasone/Salmeterol (Advair Diskus 250/50) 1 puff INH RBID [facility] Last Admin: 11/21/16 19:12 Dose: Not Given - Constitutional Appears: No Acute Distress - Eye Exam Eye Exam: EOMI, Normal appearance, PERRL Pupil Exam: NORMAL ACCOMODATION, PERRL - ENT Exam ENT Exam: Mucous Membranes Moist, Normal Exam - Respiratory Exam Respiratory Exam: Decreased Breath Sounds, Clear to Ausculation Bilateral. absent: Accessory Muscle Use, Chest Wall Tenderness, Prolonged Expiratory Phase , Rales, Rhonchi, Wheezes, Respiratory Distress, Stridor, NORMAL BREATHING PATTERN - Cardiovascular Exam Cardiovascular Exam: REGULAR RHYTHM, +S1, +S2. absent: Murmur - GI/Abdominal Exam GI & Abdominal Exam: Soft, Normal Bowel Sounds. absent: Tenderness Assessment and Plan (1) COPD exacerbation Assessment & Plan: Plan: Patient is at close to baseline and is a severe COPD patient known to outpatient office. Continue solumedrol 40mg IVP q12h. Slight leukocytosis due to solumedrol. Current CXR shows increased venous markings suggestive of bibasilar atelectasis. Status: Acute (2) Anxiety disorder Status: Resolved (3) Steroid-induced diabetes Status: Chronic (4) SOB (shortness of breath) Status: Acute
[2016-11-21] MEDS: MethylPREDNISolone 40 mg Vial IVP SCH (21:49)
[2016-11-22] MEDS: Albuterol-Ipratrop 3 mg / 0.5 (3 ml) UD INH SCH ×3 (01:47→13:07)
[2016-11-22] MEDS: Fluticasone-Salmeterol 250-50mcg Diskus INH SCH (07:37)
[2016-11-22] MEDS: Budesonide 0.5 mg/2 ml Inhal Susp UD INH SCH (07:42)
[2016-11-22] MEDS: (Novolin R) Insulin Human Regular 100 units/ml vial SC SCH ×2 (08:19→12:13)
[2016-11-22] MEDS: (Novolog) Insulin Aspart, Recombinant 100 u/ml 10 ml vial SC SCH ×2 (08:19→13:53)
--- NOTE | 2016-11-22 10:30 | CP.PCM.PN ---
Subjective - Date & Time of Evaluation Date of Evaluation: 11/22/16 Time of Evaluation: 09:45 - Subjective Subjective: Pt seen and examined sitting on the side of the bed. Pt has no acute complaints. He is concerned that he is not getting prednisone anymore and his daliresp is being given in the evening instead of the morning. He does not appear to have a clear understanding of his disease and the chronicity of his shortness of breath irreversibility of COPD. He denies fevers, chills, chest pain, abdominal pain, nausea, constipation, diarrhea. Objective - Vital Signs/Intake and Output Vital Signs (last 24 hours): Temp Pulse Resp BP Pulse Ox 97 F L 85 18 111/73 100 11/22/16 07:20 11/22/16 07:48 11/22/16 07:20 11/22/16 07:20 11/22/16 07:40 - Medications Medications: Current Medications Albuterol/Ipratropium (Duoneb 3 Mg/0.5 Mg (3 Ml) Ud) 3 ml INH RQ6 [facility] Last Admin: 11/22/16 07:43 Dose: 3 ml Alprazolam (Xanax) 0.5 mg PO BID PRN PRN Reason: Anxiety Stop: 11/27/16 20:33 Last Admin: 11/21/16 21:50 Dose: 0.5 mg Budesonide (Pulmicort Respules) 0.5 mg INH RBID [facility] Last Admin: 11/22/16 07:42 Dose: 0.5 mg Enoxaparin Sodium (Lovenox) 40 mg SC DAILY [facility] Last Admin: 11/21/16 10:17 Dose: 40 mg Insulin Aspart (Novolog) 0 unit SC ACHS [facility] PRN Reason: Protocol Last Admin: 11/22/16 08:19 Dose: 3 unit Insulin Glargine (Lantus) 16 unit SC DAILY [facility] Last Admin: 11/21/16 10:18 Dose: 16 u Insulin Human Regular (Novolin R) 4 unit SC ACHS [facility] Last Admin: 11/22/16 08:19 Dose: 4 unit Lidocaine (Lidoderm) 1 ea TD DAILY [facility] Last Admin: 11/21/16 10:17 Dose: 1 ea Metformin HCl (Glucophage) 1,000 mg PO BID [facility] Last Admin: 11/21/16 17:27 Dose: 1,000 mg Methylprednisolone (Solu-Medrol) 40 mg IVP Q12 [facility] Last Admin: 11/21/16 21:49 Dose: 40 mg Montelukast Sodium (Singulair) 10 mg PO HS [facility] Last Admin: 11/21/16 21:38 Dose: 10 mg Promethazine HCl/Codeine (Phenergan/Codeine Oral Syrup) 5 ml PO Q8 PRN PRN Reason: Cough Last Admin: 11/21/16 10:18 Dose: 5 ml Roflumilast (Daliresp) 500 mcg PO DAILY [facility] Last Admin: 11/21/16 17:28 Dose: 500 mcg Fluticasone/Salmeterol (Advair Diskus 250/50) 1 puff INH RBID [facility] Last Admin: 11/21/16 19:12 Dose: Not Given - Constitutional Appears: Non-toxic, No Acute Distress - Head Exam Head Exam: NORMOCEPHALIC - Eye Exam Eye Exam: Normal appearance, PERRL Pupil Exam: NORMAL ACCOMODATION - ENT Exam ENT Exam: Mucous Membranes Moist - Neck Exam Neck Exam: Normal Inspection - Cardiovascular Exam Cardiovascular Exam: REGULAR RHYTHM, +S1, +S2. absent: Gallop, Rubs - GI/Abdominal Exam GI & Abdominal Exam: Soft, Normal Bowel Sounds. absent: Tenderness - Extremities Exam Extremities Exam: Full ROM, Normal Capillary Refill, Normal Inspection - Back Exam Back Exam: Full ROM, NORMAL INSPECTION - Neurological Exam Neurological Exam: Alert, Awake, Oriented x3 - Psychiatric Exam Psychiatric exam: Normal Affect, Normal Mood - Skin Skin Exam: Dry, Intact, Normal Color Assessment and Plan - Assessment and Plan (Free Text) Assessment: COPD Exacerbation Plan: Pt is at baseline status of severe COPD on home oxygen therapy. Patient is stable for discharge to home with prescription from prednisone. Continue home medications as instructed and follow up in outpatient office.
[2016-11-22] MEDS: Enoxaparin 40 mg Syringe SC SCH (10:42)
[2016-11-22] MEDS: MethylPREDNISolone 40 mg Vial IVP SCH (10:43)
[2016-11-22] MEDS: (Lantus) Insulin Glargine, Recombinant SC SCH (10:45)
[2016-11-22] MEDS: Lidocaine 5% Patch TD SCH (10:46)
[2016-11-22] MEDS: Promethazine/Cod 6.25mg-10mg/5ml Syr UD PO PRN (13:59)
[2016-11-22 14:32] LABS: BASO % 0.2 % (0.0-2.0); EOS % 0.1 % (0.0-4.0); HEMATOCRIT 34.9 % (35.0-51.0); LYMPH % 6.3 % (20.0-40.0); MEAN CELL VOLUME 70.4 fL (80.0-94.0); MEAN CORPUSCULAR HGB CONC 31.2 g/dL (33.0-37.0); MEAN PLATELET VOLUME 8.4 fL (7.2-11.7); MONO # 0.5 K/uL (0.0-0.8); MONO % 3.1 % (0.0-10.0); PLATELET COUNT 346 K/uL (130-400); RED CELL DISTRIBUTION WIDTH 19.2 % (11.5-14.5); WHITE BLOOD COUNT 16.6 K/uL (4.8-10.8)
[2016-11-22 14:42] LABS: CHLORIDE 94 mmol/L (98-107)
[2016-11-22 14:43] LABS: POTASSIUM 4.1 mmol/L (3.6-5.2); SODIUM 140 mmol/L (132-148)
[2016-11-22 14:45] LABS: ALB/GLOB RATIO 1.5 (1.0-2.1); ALKALINE PHOSPHATASE 140 U/L (38-126); ALT/SGPT 39 U/L (21-72); AST/SGOT 33 U/L (17-59); BILIRUBIN,TOTAL 0.2 mg/dL (0.2-1.3); BLOOD UREA NITROGEN 15 mg/dL (9-20); CARBON DIOXIDE 25 mmol/L (22-30); GFR AFRICAN-AMERICAN > 60; TOTAL PROTEIN 7.3 g/dL (6.3-8.3)
[2016-11-22 14:46] LABS: CALCIUM 9.6 mg/dl (8.6-10.4); GLUCOSE,RANDOM 154 mg/dL (75-110)
[2016-11-22 16:23] VITALS: BP 129/78; PULSE 107; RESP 20; TEMP 97.5; O2SAT 98
[2016-11-22 17:07] LABS: NEUTROPHIL 91 % (50-75); TOTAL CELLS COUNTED 100
[2016-11-22 17:10] LABS: ACANTHOCYTES SLIGHT; LARGE PLATELETS PRESENT
--- NOTE | 2016-11-22 17:42 | CP.PCM.PN ---
Subjective - Date & Time of Evaluation Date of Evaluation: 11/22/16 Time of Evaluation: 11:00 - Subjective Subjective: PT SEEN AND EXAMINED TODAY, PT DENIES ANY CP, SOB, PALPITATIONS, RESP EASY AND UNLABORED. PT SEEN BY DR REDDY TODAY, CLEARED TO D/C HOME, PT CLEARED FOR D/C TODAY PER DR ZHANG, CONTINUE HOME MEDS PER DR ZHANG, PREDNISONE TAPERING DOSE PER DR REDDY, RX GIVEN TO PT FOR PREDNISONE, PT EDUCATED TO CONTINUE TRILEGY AT HOME, F/U WITH DR ZHANG IN THE OFFICE WITHIN ONE WEEK, F/ U W.DR REDDY IN THE OFFICE, CALL DR ZHANG'S OFFICE IF ANY FURTHER CONCERNS OR QUESTIONS, RETURN TO ED IF ANY WORSENING S/S, AGREE WITH POC, VERBALIZE UNDERSTANDING. Objective - Vital Signs/Intake and Output Vital Signs (last 24 hours): Temp Pulse Resp BP Pulse Ox 97.5 F L 107 H 20 129/78 98 11/22/16 16:21 11/22/16 16:21 11/22/16 16:21 11/22/16 16:21 11/22/16 16:21 - Medications Medications: Current Medications Albuterol/Ipratropium (Duoneb 3 Mg/0.5 Mg (3 Ml) Ud) 3 ml INH RQ6 [facility] Last Admin: 11/22/16 13:07 Dose: 3 ml Alprazolam (Xanax) 0.5 mg PO BID PRN PRN Reason: Anxiety Stop: 11/27/16 20:33 Last Admin: 11/22/16 14:00 Dose: 0.5 mg Budesonide (Pulmicort Respules) 0.5 mg INH RBID [facility] Last Admin: 11/22/16 07:42 Dose: 0.5 mg Enoxaparin Sodium (Lovenox) 40 mg SC DAILY [facility] Last Admin: 11/22/16 10:42 Dose: 40 mg Insulin Aspart (Novolog) 0 unit SC [facility] PRN Reason: Protocol Last Admin: 11/22/16 13:53 Dose: Not Given Insulin Glargine (Lantus) 16 unit SC DAILY [facility] Last Admin: 11/22/16 10:45 Dose: 16 u Insulin Human Regular (Novolin R) 4 unit SC ACHS [facility] Last Admin: 11/22/16 12:13 Dose: 4 unit Lidocaine (Lidoderm) 1 ea TD DAILY [facility] Last Admin: 11/22/16 10:46 Dose: 1 ea Metformin HCl (Glucophage) 1,000 mg PO BID [facility] Last Admin: 11/22/16 10:42 Dose: 1,000 mg Methylprednisolone (Solu-Medrol) 40 mg IVP Q12 [facility] Last Admin: 11/22/16 10:43 Dose: 40 mg Montelukast Sodium (Singulair) 10 mg PO HS [facility] Last Admin: 11/21/16 21:38 Dose: 10 mg Promethazine HCl/Codeine (Phenergan/Codeine Oral Syrup) 5 ml PO Q8 PRN PRN Reason: Cough Last Admin: 11/22/16 13:59 Dose: 5 ml Roflumilast (Daliresp) 500 mcg PO DAILY [facility] Last Admin: 11/22/16 10:42 Dose: 500 mcg Fluticasone/Salmeterol (Advair Diskus 250/50) 1 puff INH RBID [facility] Last Admin: 11/22/16 07:37 Dose: Not Given - Labs Labs: 11/22/16 14:24 11/22/16 14:24
--- NOTE | 2016-11-22 23:00 | CP.PCM.DIS ---
Provider - Provider Date of Admission: 11/20/16 19:57 Attending physician: Hal Garcia MD Time Spent in preparation of Discharge (in minutes): 30 Diagnosis - Discharge Diagnosis (1) COPD exacerbation Status: Acute Priority: Medium (2) Anxiety disorder Status: Resolved (3) Steroid-induced diabetes Status: Chronic (4) SOB (shortness of breath) Status: Acute Hospital Course - Lab Results Lab Results: Most Recent Lab Values WBC 16.6 K/uL (4.8-10.8) H 11/22/16 14:24 RBC 4.96 Mil/uL (4.40-5.90) 11/22/16 14:24 Hgb 10.9 g/dL (12.0-18.0) L 11/22/16 14:24 Hct 34.9 % (35.0-51.0) L 11/22/16 14:24 MCV 70.4 fL (80.0-94.0) L 11/22/16 14:24 MCH 22.0 pg (27.0-31.0) L 11/22/16 14:24 MCHC 31.2 g/dL (33.0-37.0) L 11/22/16 14:24 RDW 19.2 % (11.5-14.5) H 11/22/16 14:24 Plt Count 346 K/uL (130-400) 11/22/16 14:24 MPV 8.4 fL (7.2-11.7) 11/22/16 14:24 Neut % (Auto) 90.3 % (50.0-75.0) H 11/22/16 14:24 Lymph % (Auto) 6.3 % (20.0-40.0) L 11/22/16 14:24 Bennett % (Auto) 3.1 % (0.0-10.0) 11/22/16 14:24 Eos % (Auto) 0.1 % (0.0-4.0) 11/22/16 14:24 Baso % (Auto) 0.2 % (0.0-2.0) 11/22/16 14:24 Neut # 15.0 K/uL (1.8-7.0) H 11/22/16 14:24 Lymph # 1.0 K/uL (1.0-4.3) 11/22/16 14:24 Bennett # 0.5 K/uL (0.0-0.8) 11/22/16 14:24 Eos # 0.0 K/uL (0.0-0.7) 11/22/16 14:24 Baso # 0.0 K/uL (0.0-0.2) 11/22/16 14:24 Neutrophils % (Manual) 91 % (50-75) H 11/22/16 14:24 Band Neutrophils % 1 % (0-2) 11/22/16 14:24 Lymphocytes % (Manual) 4 % (20-40) L 11/22/16 14:24 Monocytes % (Manual) 4 % (0-10) 11/22/16 14:24 Differential Comment 11/20/16 18:34 Platelet Estimate Normal (NORMAL) 11/22/16 14:24 Large Platelets Present 11/22/16 14:24 Hypochromasia (manual) Slight 11/22/16 14:24 Poikilocytosis (manual Slight 11/22/16 14:24 Anisocytosis (manual) Slight 11/22/16 14:24 Microcytosis (manual) Slight 11/22/16 14:24 Ovalocytes Moderate 11/22/16 14:24 Eva Cells Slight 11/22/16 14:24 Acanthocytes (Spur) Slight 11/22/16 14:24 Schistocytes Slight 11/22/16 14:24 Sodium 140 mmol/L (132-148) 11/22/16 14:24 Potassium 4.1 mmol/L (3.6-5.2) 11/22/16 14:24 Chloride 94 mmol/L (98-107) L 11/22/16 14:24 Carbon Dioxide 25 mmol/L (22-30) 11/22/16 14:24 Anion Gap 25 (10-20) H 11/22/16 14:24 BUN 15 mg/dL (9-20) 11/22/16 14:24 Creatinine 0.6 MG/DL (0.8-1.5) L 11/22/16 14:24 Est GFR ( Amer) > 60 11/22/16 14:24 Est GFR (Non-Af Amer) > 60 11/22/16 14:24 POC Glucose (mg/dL) 288 mg/dL (65-110) H 11/22/16 15:56 Random Glucose 154 mg/dL (75-110) H 11/22/16 14:24 Calcium 9.6 mg/dl (8.6-10.4) 11/22/16 14:24 Total Bilirubin 0.2 mg/dL (0.2-1.3) 11/22/16 14:24 AST 33 U/L (17-59) 11/22/16 14:24 ALT 39 U/L (21-72) 11/22/16 14:24 Alkaline Phosphatase 140 U/L (38-126) H 11/22/16 14:24 Troponin I < 0.0120 ng/mL (0.00-0.120) 11/20/16 18:34 NT-Pro-B Natriuret Pep 28.5 pg/mL (0-900) 11/20/16 18:34 Total Protein 7.3 g/dL (6.3-8.3) 11/22/16 14:24 Albumin 4.4 g/dL (3.5-5.0) 11/22/16 14:24 Globulin 3.0 gm/dL (2.2-3.9) 11/22/16 14:24 Albumin/Globulin Ratio 1.5 (1.0-2.1) 11/22/16 14:24 - Hospital Course Hospital Course: Pt seen and examined, still coughing and wheezing but improved, PT DENIES ANY CP , SOB, PALPITATIONS, RESP EASY AND UNLABORED. PT SEEN BY DR NUNO ALSO TODAY, CLEARED TO D/C HOME, , CONTINUE HOME MEDS , PREDNISONE TAPERING DOSE ,PT EDUCATED TO CONTINUE TRILEGY AT HOME, F/U WITH ME IN THE OFFICE WITHIN ONE WEEK , F/U W.DR NUNO IN THE OFFICE, CALL MY OFFICE IF ANY FURTHER CONCERNS OR QUESTIONS, RETURN TO ED IF ANY WORSENING S/S, AGREE WITH POC, VERBALIZE UNDERSTANDING. Discharge Exam - Head Exam Head Exam: NORMOCEPHALIC - Eye Exam Eye Exam: Normal appearance Pupil Exam: NORMAL ACCOMODATION - ENT Exam ENT Exam: Mucous Membranes Moist - Respiratory Exam Respiratory Exam: Decreased Breath Sounds, Wheezes - Cardiovascular Exam Cardiovascular Exam: Tachycardia, +S1, +S2 - GI/Abdominal Exam GI & Abdominal Exam: Normal Bowel Sounds Discharge Plan - Follow Up Plan Condition: FAIR Disposition: HOME/ ROUTINE Instructions: Prednisone (By mouth), Heart Failure (DC), Heart Healthy Diet (DC ), COPD (Chronic Obstructive Pulmonary Disease) (DC) Additional Instructions: follow up with Dr. Garcia in the office in 3-5 days follow up with Dr. Nuno in the office in one week continue medications as per med rec call Dr. Garcia's office if you have any further questions Return to ED if any worsening symptoms Referrals: Ralf Nuno MD [Staff Provider] - Hal Garcia MD [Staff Provider] -
--- NOTE | 2016-11-23 12:58 | CARD ---
APPROVED REPORT EKG Measurement Heart [id number] <Conclusion> Sinus tachycardia Otherwise normal ECG
== END 2016-11-22 18:00 | disposition home or self-care (01) ==
LOC: C.ER 18:06 → C.9E 19:57 → C.6T 22:39
PROVIDERS: ADMIT Internal Medicine; ATTEND Internal Medicine
DX: J44.1 Chronic obstructive pulmonary disease with (acute) exacerbation (principal); J96.10 Chronic respiratory failure, unspecified whether with hypoxia or hypercapnia; Z99.81 Dependence on supplemental oxygen; Z87.891 Personal history of nicotine dependence; F41.9 Anxiety disorder, unspecified; E09.22 Drug or chemical induced diabetes mellitus with diabetic chronic kidney disease; I13.0 Hypertensive heart and chronic kidney disease with heart failure and stage 1 through stage 4 chronic kidney disease, or unspecified chronic kidney disease; T38.0X5D Adverse effect of glucocorticoids and synthetic analogues, subsequent encounter; N18.9 Chronic kidney disease, unspecified; I50.9 Heart failure, unspecified; E78.00 Pure hypercholesterolemia, unspecified; G47.30 Sleep apnea, unspecified; M46.90 Unspecified inflammatory spondylopathy, site unspecified; M17.0 Bilateral primary osteoarthritis of knee; Z87.19 Personal history of other diseases of the digestive system; Z79.4 Long term (current) use of insulin; Z79.52 Long term (current) use of systemic steroids; Z79.899 Other long term (current) drug therapy
CPT/HCPCS: 36415; 71010; 80053; 82948; 83880; 84484; 85025; 94640; 94660; 96372; 96374; 99285; G0378; J1650; J2920; J2930

== ENCOUNTER 2016-11-23 12:09 | Emergency (ER) | payer MEDICARE ==
[2016-11-23 12:10] VITALS: BMI 26.3
[2016-11-23 12:24] VITALS: TEMP 97.6
[2016-11-23 13:27] LABS: BASO # 0.1 K/uL (0.0-0.2); BASO % 0.6 % (0.0-2.0); EOS % 0.3 % (0.0-4.0); HEMATOCRIT 31.8 % (35.0-51.0); LYMPH # 0.8 K/uL (1.0-4.3); LYMPH % 7.2 % (20.0-40.0); MEAN CORPUSCULAR HEMOGLOBIN 21.8 pg (27.0-31.0); MEAN CORPUSCULAR HGB CONC 31.1 g/dL (33.0-37.0); MEAN PLATELET VOLUME 8.2 fL (7.2-11.7); MONO # 0.6 K/uL (0.0-0.8); MONO % 4.8 % (0.0-10.0); PLATELET COUNT 289 K/uL (130-400); RED CELL DISTRIBUTION WIDTH 18.9 % (11.5-14.5); WHITE BLOOD COUNT 11.6 K/uL (4.8-10.8)
[2016-11-23 13:38] LABS: CHLORIDE 98 mmol/L (98-107); POTASSIUM 4.3 mmol/L (3.6-5.2); SODIUM 138 mmol/L (132-148)
[2016-11-23 13:40] LABS: AST/SGOT 23 U/L (17-59); BILIRUBIN,TOTAL 0.1 mg/dL (0.2-1.3); CARBON DIOXIDE 28 mmol/L (22-30); GFR AFRICAN-AMERICAN > 60
[2016-11-23 13:41] LABS: ALB/GLOB RATIO 1.5 (1.0-2.1); ALKALINE PHOSPHATASE 122 U/L (38-126); ALT/SGPT 39 U/L (21-72); BLOOD UREA NITROGEN 13 mg/dL (9-20); CALCIUM 8.8 mg/dl (8.6-10.4); GLUCOSE,RANDOM 184 mg/dL (75-110); TOTAL PROTEIN 6.5 g/dL (6.3-8.3)
[2016-11-23 13:42] LABS: EOSINOPHIL 1 % (0-4); NEUTROPHIL 87 % (50-75); TOTAL CELLS COUNTED 100
[2016-11-23 13:44] LABS: LARGE PLATELETS PRESENT
[2016-11-23 14:10] LABS: THYROID STIMULATING HORMONE 0.77 mIU/L (0.46-4.68)
[2016-11-23 14:48] VITALS: BP 118/76; PULSE 98; RESP 17; O2SAT 98
--- NOTE | 2016-11-23 15:26 | C.PDOC ---
History Of Present Illness 66 y/o male presents to the ED stating his hear rate was in the 50s briefly at home while monitoring his pulse ox. Pt also felt dizzy at the time. Pt currently denies chest pain, SOB, fever, cough or any other complaints. Pt was discharged from hospital yesterday for COPD. Chief Complaint (Nursing): Palpitations History Per: Patient History/Exam Limitations: no limitations Onset/Duration Of Symptoms: Mins Current Symptoms Are (Timing): Better Severity: Mild Reports Recently: Hospitalized Recent travel outside of the [place]: No Past Medical History Reviewed: Historical Data, Nursing Documentation, Vital Signs Vital Signs: Last Vital Signs Temp 97.6 F 11/23/16 12:21 Pulse 98 H 11/23/16 14:47 Resp 17 11/23/16 14:47 BP 118/76 11/23/16 14:47 Pulse Ox 98 11/23/16 15:27 - Medical History PMH: Anxiety, Arthritis (BACK; KNEES), Asthma, Bronchitis, CHF, COPD, Diabetes, Emphysema, Gastritis, HTN, Hypercholesterolemia, Pneumonia, Chronic Kidney Disease, Sleep Apnea - [facility] Procedures ASSISTANCE WITH RESPIRATORY VENTILATION, 24-96 HRS, CPAP (10/07/16) ASSISTANCE WITH RESPIRATORY VENTILATION, <24 HRS, CPAP (07/08/16) ASSISTANCE WITH RESPIRATORY VENTILATION, >96 HRS, CPAP (08/09/16) CONTINUOUS INVASIVE MECHANICAL VENTILATION <96 CONSEC HRS (11/29/14) INFLUENZA VACCINATION (06/02/14) INSERT ENDOTRACHEAL TUBE (11/29/14) LARYGNOSCOPY AND OTH TRACHEOSCOPY (04/18/15) MEASURE OF CARDIAC SAMPL & PRESSURE, L HEART, PERC APPROACH (12/01/15) NON-INVASIVE MECHANICAL VENTILATION (04/18/15) Family History: States: Unknown Family Hx - Social History Hx Tobacco Use: Yes (8 years ppd smoker. quit 1.5 years ago) Hx Alcohol Use: No Hx Substance Use: No - Immunization History Hx Tetanus Toxoid Vaccination: Yes Hx Influenza Vaccination: Yes Hx Pneumococcal Vaccination: Yes Review Of Systems Except As Marked, All Systems Reviewed And Found Negative. Constitutional: Negative for: Fever, Chills Cardiovascular: Negative for: Chest Pain Respiratory: Negative for: Cough, Shortness of Breath Gastrointestinal: Negative for: Nausea Neurological: Negative for: Dizziness Physical Exam - Physical Exam Appears: Non-toxic, No Acute Distress Skin: Warm, Dry, No Rash Head: Atraumatic, Normacephalic Neck: Normal ROM, Supple Chest: Symmetrical Cardiovascular: Rhythm Regular, No Murmur Respiratory: Normal Breath Sounds, No Rales, No Rhonchi, No Wheezing Gastrointestinal/Abdominal: Soft, No Tenderness Extremity: No Pedal Edema Extremity: Bilateral: Atraumatic Neurological/Psych: Oriented x3, Normal Speech ED Course And Treatment - Laboratory Results Result Diagrams: 11/23/16 13:21 11/23/16 13:21 ECG: Interpreted By Me, Viewed By Me ECG Rhythm: Sinus Tachycardia Rate From EC (BPM) O2 Sat by Pulse Oximetry: 98 (on room air) Pulse Ox Interpretation: Normal Progress Note: Case discussed with Dr Garcia, agreed to discharge and have patient follow up in his office early next week. Disposition - Disposition Referrals: Hal Garcia MD [Staff Provider] - Disposition: HOME/ ROUTINE Disposition Time: 14:45 Condition: GOOD Additional Instructions: Thank you for letting us take care of you today. Your provider was Dr. Dias. You were treated for episodic weakness. The emergency medical care you received today was directed at your acute symptoms. If you were prescribed any medication, please fill it and take as directed. It may take several days for your symptoms to resolve. Return to the Emergency Department if your symptoms worsen, do not improve, or if you have any other problems. Please contact your doctor or call one of the physicians/clinics you have been referred to that are listed on the Patient Visit Information form that is included in your discharge packet. Bring any paperwork you were given at discharge with you along with any medications you are taking to your follow up visit. Our treatment cannot replace ongoing medical care by a primary care provider (PCP) outside of the emergency department. Thank you for allowing the [facility] team to be part of your care today. Follow up with your primary doctor in 3-4 days. Instructions: Weakness (ED) - Clinical Impression Clinical Impression: Chronic obstructive lung disease - Scribe Statement The provider has reviewed the documentation as recorded by the Kezia Darden Provider Attestation: All medical record entries made by the Merryibilya were at my direction and personally dictated by me. I have reviewed the chart and agree that the record accurately reflects my personal performance of the history, physical exam, medical decision making, and the department course for this patient. I have also personally directed, reviewed, and agree with the discharge instructions and disposition.
--- NOTE | 2016-11-23 16:29 | RAD ---
HISTORY: chest pain COMPARISON: Chest x-ray performed 11/20/16 TECHNIQUE: Chest, one view. FINDINGS: Examination limited by habitus and patient obliquity. LUNGS: Mild streaky atelectasis within the left upper lobe. Left basilar atelectasis. Flattening of the hemidiaphragm which may be seen in the setting of hyperinflation/COPD. Please note that chest x-ray has limited sensitivity for the detection of pulmonary masses. PLEURA: No significant pleural effusion identified. No definite pneumothorax . CARDIOVASCULAR: Heart size appears within normal limits. OSSEOUS STRUCTURES: Degenerative changes of the spine. VISUALIZED UPPER ABDOMEN: Unremarkable. OTHER FINDINGS: None. IMPRESSION: Mild streaky atelectasis within the left upper lobe. Left basilar atelectasis. Flattening of the hemidiaphragm which may be seen in the setting of hyperinflation/COPD.
--- NOTE | 2016-11-25 15:22 | CARD ---
APPROVED REPORT EKG Measurement Heart [id number] <Conclusion> Sinus tachycardia Otherwise normal ECG
== END 2016-11-23 14:53 | disposition home or self-care (01) ==
LOC: C.ER 12:09
DX: J44.9 Chronic obstructive pulmonary disease, unspecified (principal); Z87.891 Personal history of nicotine dependence

== ENCOUNTER 2016-12-05 19:32 | Inpatient (IN) | payer MEDICARE ==
[2016-12-05 19:32] VITALS: BMI 26.3
[2016-12-05] MEDS ORDERED: Albuterol-Ipratrop 3 mg / 0.5 (3 ml) UD INH STA (20:12)
--- NOTE | 2016-12-05 20:32 | C.PDOC ---
History Of Present Illness 66 y/o male presents to ED with complaint of SOB for the last week. Patient reports recent admission for COPD exacerbation. Patient is currently on prednisone taper with nebulizer treatments at home. History of prior hospitalizations and intubations. Denies fever, chills, chest pain, dizziness, or other associated symptoms. Time Seen by Provider: 12/05/16 20:08 Chief Complaint (Nursing): Shortness Of Breath History Per: Patient History/Exam Limitations: no limitations Onset/Duration Of Symptoms: Days Current Symptoms Are (Timing): Still Present Current Respiratory Medications: Albuterol, Prednisone Associated Symptoms: denies: Fever, Chills, Chest Pain, Bloody Cough, Dizziness Reports Recently: Hospitalized Recent travel outside of the [place]: No Past Medical History Reviewed: Historical Data, Nursing Documentation, Vital Signs Vital Signs: Last Vital Signs Temp 97.5 F L 12/05/16 22:58 Pulse 107 H 12/05/16 22:58 Resp 16 12/05/16 22:58 BP 103/66 12/05/16 22:58 Pulse Ox 98 12/05/16 23:18 - Medical History PMH: Anxiety, Arthritis (BACK; KNEES), Asthma, Bronchitis, CHF, COPD, Diabetes, Emphysema, Gastritis, HTN, Hypercholesterolemia, Pneumonia, Chronic Kidney Disease, Sleep Apnea - [facility] Procedures ASSISTANCE WITH RESPIRATORY VENTILATION, 24-96 HRS, CPAP (10/07/16) ASSISTANCE WITH RESPIRATORY VENTILATION, <24 HRS, CPAP (07/08/16) ASSISTANCE WITH RESPIRATORY VENTILATION, >96 HRS, CPAP (08/09/16) CONTINUOUS INVASIVE MECHANICAL VENTILATION <96 CONSEC HRS (11/29/14) INFLUENZA VACCINATION (06/02/14) INSERT ENDOTRACHEAL TUBE (11/29/14) LARYGNOSCOPY AND OTH TRACHEOSCOPY (04/18/15) MEASURE OF CARDIAC SAMPL & PRESSURE, L HEART, PERC APPROACH (12/01/15) NON-INVASIVE MECHANICAL VENTILATION (04/18/15) Family History: States: Unknown Family Hx - Social History Hx Tobacco Use: Yes (8 years ppd smoker. quit 1.5 years ago) Hx Alcohol Use: No Hx Substance Use: No - Immunization History Hx Tetanus Toxoid Vaccination: Yes Hx Influenza Vaccination: Yes Hx Pneumococcal Vaccination: Yes Review Of Systems Except As Marked, All Systems Reviewed And Found Negative. Constitutional: Negative for: Fever, Chills Cardiovascular: Negative for: Chest Pain, Palpitations Respiratory: Positive for: Shortness of Breath Gastrointestinal: Negative for: Nausea, Vomiting Skin: Negative for: Rash Neurological: Negative for: Dizziness Physical Exam - Physical Exam Appears: Other (moderate respiratory distress) Skin: Warm, Dry, No Diaphoretic Head: Atraumatic, Normacephalic Chest: Symmetrical Cardiovascular: Rhythm Regular Respiratory: No Accessory Muscle Use, No Rales, No Rhonchi, Wheezing (scattered) , Other (poor air movement) Gastrointestinal/Abdominal: Soft, No Tenderness Back: Normal Inspection Extremity: Normal ROM, Capillary Refill (< 2 sec. ) Neurological/Psych: Oriented x3 ED Course And Treatment - Laboratory Results Result Diagrams: 12/05/16 20:41 12/05/16 20:41 Lab Interpretation: Abnormal (mild leukocytosis (recent steroids)) ECG: Interpreted By Me ECG Interpretation: Abnormal Rate From EC O2 Sat by Pulse Oximetry: 98 Pulse Ox Interpretation: Normal - Radiology CXR: Interpreted by Me CXR Interpretation: Yes: Other (++ hyperinflated). No: Infiltrates Progress Note: feels better- end-title CO2 33 wnl (pt refused ABG) Reevaluation Time: 21:36 Reassessment Condition: Improved - Physician Consult Information Outcome Of Conversation: 2000: d/w Dr. Sarah lombardi to tele obs Disposition Doctor Will See Patient In The: Hospital Counseled Patient/Family Regarding: Studies Performed, Diagnosis - Disposition Disposition: HOSPITALIZED Disposition Time: 21:00 Condition: FAIR - POA Present On Arrival: None - Clinical Impression Clinical Impression: COPD (chronic obstructive pulmonary disease) - Scribe Statement The provider has reviewed the documentation as recorded by the Kezia Ahn Provider Scribe Attestation: All medical record entries made by the Scribilya were at my direction and personally dictated by me. I have reviewed the chart and agree that the record accurately reflects my personal performance of the history, physical exam, medical decision making, and the department course for this patient. I have also personally directed, reviewed, and agree with the discharge instructions and disposition.
[2016-12-05 20:50] LABS: BASO # 0.1 K/uL (0.0-0.2); BASO % 0.8 % (0.0-2.0); EOS # 0.3 K/uL (0.0-0.7); EOS % 2.2 % (0.0-4.0); HEMATOCRIT 34.5 % (35.0-51.0); LYMPH % 17.5 % (20.0-40.0); MEAN CELL VOLUME 69.1 fL (80.0-94.0); MEAN CORPUSCULAR HEMOGLOBIN 21.6 pg (27.0-31.0); MEAN CORPUSCULAR HGB CONC 31.2 g/dL (33.0-37.0); MEAN PLATELET VOLUME 8.4 fL (7.2-11.7); MONO # 0.6 K/uL (0.0-0.8); MONO % 4.8 % (0.0-10.0); RED CELL DISTRIBUTION WIDTH 18.5 % (11.5-14.5); WHITE BLOOD COUNT 11.7 K/uL (4.8-10.8)
[2016-12-05 20:59] LABS: CHLORIDE 96 mmol/L (98-107); POTASSIUM 3.8 mmol/L (3.6-5.2); SODIUM 137 mmol/L (132-148)
[2016-12-05 21:01] LABS: BILIRUBIN,TOTAL 0.2 mg/dL (0.2-1.3); CARBON DIOXIDE 28 mmol/L (22-30); GFR AFRICAN-AMERICAN > 60
[2016-12-05 21:02] LABS: ALB/GLOB RATIO 1.4 (1.0-2.1); ALKALINE PHOSPHATASE 135 U/L (38-126); ALT/SGPT 48 U/L (21-72); AST/SGOT 40 U/L (17-59); BLOOD UREA NITROGEN 6 mg/dL (9-20); GLUCOSE,RANDOM 232 mg/dL (75-110); TOTAL PROTEIN 7.3 g/dL (6.3-8.3)
--- NOTE | 2016-12-06 01:27 | CP.PCM.HP ---
History of Present Illness - History of Present Illness History of Present Illness: Cheif complain: shortness of breath HPI: 66 y/o male well known to me with PMH significant for severe COPD with multiple hospitalizations again presents to ED with complaint of SOB for the last week. Patient reports recent admission for COPD exacerbation. Patient is currently on prednisone taper with nebulizer treatments at home. History of prior hospitalizations and intubations. Denies fever, chills, chest pain, dizziness, or other associated symptoms Present on Admission - Present on Admission Any Indicators Present on Admission: No Review of Systems - Review of Systems Systems not reviewed;Unavailable: Acuity of Condition, Respiratory Distress - Constitutional Constitutional: Fatigue, Lethargy, Malaise - EENT Eyes: absent: As Per HPI, Blind Spots, Blurred Vision, Change in Vision, Decreased Night Vision, Diplopia, Discharge, Dry Eye, Exophthalmos, Floaters, Irritation, Itchy Eyes, Loss of Peripheral Vision, Pain, Photophobia, Requires Corrective Lenses, Sees Flashes, Spots in Vision, Tunnel Vision, Other Visual Disturbances, Loss of Vision, Other Ears: absent: As Per HPI, Decreased Hearing, Ear Discharge, Ear Pain, Tinnitus, Abnormal Hearing, Disequilibrium, Dizziness, Other Nose/Mouth/Throat: Nasal Congestion. absent: As Per HPI, Epistaxis, Nasal Discharge, Nasal Obstruction, Nasal Trauma, Nose Pain, Post Nasal Drip, Sinus Pain, Sinus Pressure, Bleeding Gums, Change in Voice, Dental Pain, Dry Mouth, Dysphagia, Halitosis, Hoarsness, Lip Swelling, Mouth Lesions, Mouth Pain, Odynophagia, Sore Throat, Throat Swelling, Tongue Swelling, Facial Pain, Neck Pain, Neck Mass, Other - Cardiovascular Cardiovascular: Dyspnea, Dyspnea on Exertion - Respiratory Respiratory: Cough, Dyspnea, Dyspnea on Exertion, Wheezing, Snoring, Chest Congestion, Excessive Mucous Production, Change in Mucous Color, Pain with Coughing - Gastrointestinal Gastrointestinal: absent: As Per HPI, Abdominal Pain, Belching, Bloating, Change in Bowel Habits, Change in Stool Character, Coffee Ground Emesis, Constipation, Cramping, Diarrhea, Dyspepsia, Dysphagia, Early Satiety, Excessive Flatus, Fecal Incontinence, Heartburn, Hematemesis, Hematochezia, Loose Stools, Melena, Nausea, Odynophagia, Temesmus, Vomiting, Other - Genitourinary Genitourinary: absent: As Per HPI, Change in Urinary Stream, Difficulty Urinating, Dysuria, Flank Pain, Hematuria, Pyuria, Nocturia, Urinary Incontinence, Urinary Frequency, Urinary Hesitance, Urinary Urgency, Voiding Freq/Small Amts, Freq UTI, Hx Renal/Bladder Calculi, Hx /Renal Surgery, Bladder Distension, Other - Musculoskeletal Musculoskeletal: Back Pain, Limited Range of Motion, Muscle Weakness - Neurological Neurological: absent: As Per HPI, Abnormal Gait, Abnormal Hearing, Abnormal Movements, Abnormal Speech, Behavioral Changes, Burning Sensations, Confusion, Convulsions, Disequilibrium, Dizziness, Numbness, Focal Weakness, Frequent Falls , Headaches, Lack of Coordination, Loss of Vision, Memory Loss, Paresthesias, Radicular Pain, Restless Legs, Sensory Deficit, Syncope, Tingling, Tremor, Vertigo, Weakness, Other Visual Disturbances, Other - Psychiatric Psychiatric: absent: As Per HPI, Abnormal Sleep Pattern, Anhedonia, Anxiety, Auditory Hallucinations, Behavioral Changes, Change in Appetite, Change in Libido, Confusion, Depression, Difficulty Concentrating, Hallucinations, Homicidal Ideation, Hopelessness, Irritability, Memory Loss, Mood Swings, Panic Attacks, Paranoia, Suicidal Ideation, Visual Hallucinations, Tactile Hallucinations, Other Past Patient History - Infectious Disease Hx of Infectious Diseases: None - Past Medical History & Family History Past Medical History?: Yes - Past Social History Smoking Status: Former Smoker - CARDIAC Hx Congestive Heart Failure: Yes Hx Hypercholesterolemia: Yes Hx Hypertension: Yes - PULMONARY Hx Asthma: Yes Hx Bronchitis: Yes Hx Chronic Obstructive Pulmonary Disease (COPD): Yes Hx Emphysema: Yes Hx Pneumonia: Yes Hx Sleep Apnea: Yes - NEUROLOGICAL Hx Neurological Disorder: No - HEENT Hx HEENT Problems: Yes Hx Cataracts: Yes (left cataract removed, r cataract) Other/Comment: wears eyeglasses for distance - RENAL Hx Chronic Kidney Disease: Yes - ENDOCRINE/METABOLIC Hx Endocrine Disorders: Yes Hx Diabetes Mellitus Type 2: Yes - HEMATOLOGICAL/ONCOLOGICAL Hx Blood Disorders: No - INTEGUMENTARY Hx Dermatological Problems: No - MUSCULOSKELETAL/RHEUMATOLOGICAL Hx Falls: No - GASTROINTESTINAL Hx Gastritis: Yes - PSYCHIATRIC Hx Substance Use: No - SURGICAL HISTORY Hx Surgeries: Yes Hx Cataract Extraction: Yes (left eye, right eye) Hx Cardiac Catheterization: Yes (11/2015) Hx Eye Surgery: Yes Other/Comment: LEFT EYE SURGERY - ANESTHESIA Hx Anesthesia: Yes Hx Anesthesia Reactions: Yes (pt dont know. aware) Hx Malignant Hyperthermia: No Meds Allergies/Adverse Reactions: Allergies Allergy/AdvReac Type Severity Reaction Status Date / Time acetaminophen [From Tylenol] Allergy RASH Verified 12/25/16 23:46 FISH Allergy SWELLING Verified 12/25/16 23:46 shrimp Allergy SHORTNESS Verified 12/25/16 23:46 OF BREATH Physical Exam - Constitutional Appears: No Acute Distress - Head Exam Head Exam: ATRAUMATIC, NORMAL INSPECTION, NORMOCEPHALIC - Eye Exam Eye Exam: EOMI, Normal appearance, PERRL Pupil Exam: NORMAL ACCOMODATION, PERRL - Respiratory Exam Respiratory Exam: Decreased Breath Sounds, Rhonchi, Wheezes - Cardiovascular Exam Cardiovascular Exam: REGULAR RHYTHM - GI/Abdominal Exam GI & Abdominal Exam: Normal Bowel Sounds, Soft. absent: Tenderness Results - Vital Signs Recent Vital Signs: Last Vital Signs Temp 97.5 F L 12/05/16 22:58 Pulse 107 H 12/05/16 22:58 Resp 16 12/05/16 22:58 BP 103/66 12/05/16 22:58 Pulse Ox 98 12/06/16 00:34 - Labs Result Diagrams: 12/05/16 20:41 12/05/16 20:41 Labs: Laboratory Results - last 24 hr 12/05/16 12/05/16 20:41 20:41 WBC 11.7 H RBC 4.99 Hgb 10.8 L Hct 34.5 L MCV 69.1 L MCH 21.6 L MCHC 31.2 L RDW 18.5 H Plt Count 355 MPV 8.4 Neut % (Auto) 74.7 Lymph % (Auto) 17.5 L [place] % (Auto) 4.8 Eos % (Auto) 2.2 Baso % (Auto) 0.8 Neut # 8.7 H Lymph # 2.0 [place] # 0.6 Eos # 0.3 Baso # 0.1 Sodium 137 Potassium 3.8 Chloride 96 L Carbon Dioxide 28 Anion Gap 18 BUN 6 L Creatinine 0.6 L Est GFR ( Amer) > 60 Est GFR (Non-Af Amer) > 60 Random Glucose 232 H Calcium 9.0 Total Bilirubin 0.2 AST 40 ALT 48 Alkaline Phosphatase 135 H Troponin I < 0.0120 NT-Pro-B Natriuret Pep 27.7 Total Protein 7.3 Albumin 4.3 Globulin 3.0 Albumin/Globulin Ratio 1.4 Assessment & Plan (1) Acute exacerbation of chronic obstructive pulmonary disease (COPD) Status: Acute Priority: High (2) Allergic rhinitis Status: Chronic Priority: Medium (3) Steroid-induced diabetes Status: Chronic
[2016-12-06] MEDS: Albuterol-Ipratrop 3 mg / 0.5 (3 ml) UD INH SCH ×4 (01:32→19:44)
--- NOTE | 2016-12-06 07:55 | RAD ---
PROCEDURE: CHEST RADIOGRAPH, 1 VIEW HISTORY: Shortness of breath COMPARISON: 11/23/2016 FINDINGS: LUNGS: Hyperinflation suggestive for COPD and or emphysematous changes. Patchy increased markings at the left lung base which may represent atelectasis and or infiltrate. PLEURA: No pneumothorax or pleural fluid seen. CARDIOVASCULAR: Normal. OSSEOUS STRUCTURES: Degenerative changes in the spine and shoulders. VISUALIZED UPPER ABDOMEN: Normal. OTHER FINDINGS: None. IMPRESSION: Hyperinflation suggestive for COPD and or emphysematous changes. Patchy increased markings at the left lung base which may represent atelectasis and or infiltrate.
[2016-12-06] MEDS: Pantoprazole 40 mg EC Tab PO SCH (09:34)
[2016-12-06] MEDS: MethylPREDNISolone 40 mg Vial IVP SCH ×2 (09:35→22:35)
[2016-12-06] MEDS: guaiFENesin 600 mg ER Tab PO SCH ×2 (09:35→17:56)
[2016-12-06] MEDS: Enoxaparin 40 mg Syringe SC SCH (09:35)
[2016-12-06] MEDS: Lidocaine 5% Patch TD SCH (09:36)
[2016-12-06] MEDS: (Novolog) Insulin Aspart, Recombinant 100 u/ml 10 ml vial SC SCH ×4 (09:36→21:40)
[2016-12-06] MEDS: Fluticasone-Salmeterol 250-50mcg Diskus INH SCH ×2 (10:08→19:45)
--- NOTE | 2016-12-06 17:36 | CP.PCM.CON ---
History of Present Illness - History of Present Illness History of Present Illness: Reason for consultation: Shortness of breath 66-year-old male with COPD, chronic respiratory failure on trilogy machine at home presented with shortness of breath which progressively got worse and called EMS brought him to the emergency room. Also complaining of slight cough but denies fever or chills, denies chest pain Review of Systems - Review of Systems All systems: reviewed and no additional remarkable complaints except (Shortness of breath and slight cough) Past Patient History - Infectious Disease Hx of Infectious Diseases: None - Past Medical History & Family History Past Medical History?: Yes - Past Social History Smoking Status: Former Smoker - CARDIAC Hx Congestive Heart Failure: Yes Hx Hypercholesterolemia: Yes Hx Hypertension: Yes - PULMONARY Hx Asthma: Yes Hx Bronchitis: Yes Hx Chronic Obstructive Pulmonary Disease (COPD): Yes Hx Emphysema: Yes Hx Pneumonia: Yes Hx Sleep Apnea: Yes - NEUROLOGICAL Hx Neurological Disorder: No - HEENT Hx HEENT Problems: Yes Hx Cataracts: Yes (left cataract removed, r cataract) Other/Comment: wears eyeglasses for distance - RENAL Hx Chronic Kidney Disease: Yes - ENDOCRINE/METABOLIC Hx Endocrine Disorders: Yes Hx Diabetes Mellitus Type 2: Yes - HEMATOLOGICAL/ONCOLOGICAL Hx Blood Disorders: No - INTEGUMENTARY Hx Dermatological Problems: No - MUSCULOSKELETAL/RHEUMATOLOGICAL Hx Falls: No - GASTROINTESTINAL Hx Gastritis: Yes - PSYCHIATRIC Hx Substance Use: No - SURGICAL HISTORY Hx Surgeries: Yes Hx Cataract Extraction: Yes (left eye, right eye) Hx Cardiac Catheterization: Yes (11/2015) Hx Eye Surgery: Yes Other/Comment: LEFT EYE SURGERY - ANESTHESIA Hx Anesthesia: Yes Hx Anesthesia Reactions: Yes (pt dont know. aware) Hx Malignant Hyperthermia: No Meds Allergies/Adverse Reactions: Allergies Allergy/AdvReac Type Severity Reaction Status Date / Time acetaminophen [From Tylenol] Allergy RASH Verified 11/23/16 12:24 FISH Allergy SWELLING Verified 11/23/16 12:24 shrimp Allergy SHORTNESS Verified 11/23/16 12:24 OF BREATH - Medications Medications: Current Medications Albuterol/Ipratropium (Duoneb 3 Mg/0.5 Mg (3 Ml) Ud) 3 ml INH RQ6 [facility] Last Admin: 12/06/16 13:49 Dose: 3 ml Alprazolam (Xanax) 0.5 mg PO BID PRN PRN Reason: Anxiety Stop: 12/13/16 00:46 Last Admin: 12/06/16 09:34 Dose: 0.5 mg Enoxaparin Sodium (Lovenox) 40 mg SC DAILY [facility] Last Admin: 12/06/16 09:35 Dose: 40 mg Guaifenesin (Mucinex La) 600 mg PO BID [facility] Last Admin: 12/06/16 09:35 Dose: 600 mg Insulin Aspart (Novolog) 0 unit SC ACHS [facility] PRN Reason: Protocol Last Admin: 12/06/16 13:51 Dose: 4 unit Insulin Glargine (Lantus) 18 unit SC HS [facility] Lidocaine (Lidoderm) 1 ea TD DAILY [facility] Last Admin: 12/06/16 09:36 Dose: 1 ea Metformin HCl (Glucophage) 1,000 mg PO BID [facility] Last Admin: 12/06/16 09:34 Dose: 1,000 mg Methylprednisolone (Solu-Medrol) 40 mg IVP Q12 [facility] Last Admin: 12/06/16 09:35 Dose: 40 mg Montelukast Sodium (Singulair) 10 mg PO HS [facility] Pantoprazole Sodium (Protonix Ec Tab) 40 mg PO DAILY [facility] Last Admin: 12/06/16 09:34 Dose: 40 mg Pregabalin (Lyrica) 50 mg PO Q12 [facility] Roflumilast (Daliresp) 500 mcg PO DAILY [facility] Last Admin: 12/06/16 10:00 Dose: 500 mcg Rosuvastatin Calcium (Crestor) 10 mg PO HS [facility] Fluticasone/Salmeterol (Advair Diskus 250/50) 1 puff INH RBID [facility] Last Admin: 12/06/16 10:08 Dose: 1 puff Physical Exam - Head Exam Head Exam: ATRAUMATIC, NORMOCEPHALIC - Eye Exam Eye Exam: Normal appearance - ENT Exam ENT Exam: Mucous Membranes Moist - Neck Exam Neck exam: Positive for: Normal Inspection - Respiratory Exam Respiratory Exam: Decreased Breath Sounds - Cardiovascular Exam Cardiovascular Exam: REGULAR RHYTHM - GI/Abdominal Exam GI & Abdominal Exam: Normal Bowel Sounds, Soft - Extremities Exam Extremities exam: Positive for: normal inspection Results - Vital Signs Recent Vital Signs: Last Vital Signs Temp 98.1 F 12/06/16 15:44 Pulse 127 H 12/06/16 15:44 Resp 20 12/06/16 15:44 BP 114/74 12/06/16 15:44 Pulse Ox 98 12/06/16 15:44 - Labs Result Diagrams: 12/05/16 20:41 12/05/16 20:41 Labs: Laboratory Results - last 24 hr 12/05/16 12/05/16 12/06/16 20:41 20:41 06:30 WBC 11.7 H RBC 4.99 Hgb 10.8 L Hct 34.5 L MCV 69.1 L MCH 21.6 L MCHC 31.2 L RDW 18.5 H Plt Count 355 MPV 8.4 Neut % (Auto) 74.7 Lymph % (Auto) 17.5 L Casey % (Auto) 4.8 Eos % (Auto) 2.2 Baso % (Auto) 0.8 Neut # 8.7 H Lymph # 2.0 Casey # 0.6 Eos # 0.3 Baso # 0.1 Sodium 137 Potassium 3.8 Chloride 96 L Carbon Dioxide 28 Anion Gap 18 BUN 6 L Creatinine 0.6 L Est GFR ( Amer) > 60 Est GFR (Non-Af Amer) > 60 POC Glucose (mg/dL) 330 H Random Glucose 232 H Calcium 9.0 Total Bilirubin 0.2 AST 40 ALT 48 Alkaline Phosphatase 135 H Troponin I < 0.0120 NT-Pro-B Natriuret Pep 27.7 Total Protein 7.3 Albumin 4.3 Globulin 3.0 Albumin/Globulin Ratio 1.4 12/06/16 12/06/16 11:07 16:15 WBC RBC Hgb Hct MCV MCH MCHC RDW Plt Count MPV Neut % (Auto) Lymph % (Auto) Casey % (Auto) Eos % (Auto) Baso % (Auto) Neut # Lymph # Casey # Eos # Baso # Sodium Potassium Chloride Carbon Dioxide Anion Gap BUN Creatinine Est GFR ( Amer) Est GFR (Non-Af Amer) POC Glucose (mg/dL) 327 H 322 H Random Glucose Calcium Total Bilirubin AST ALT Alkaline Phosphatase Troponin I NT-Pro-B Natriuret Pep Total Protein Albumin Globulin Albumin/Globulin Ratio Assessment & Plan (1) Acute exacerbation of chronic obstructive pulmonary disease (COPD) Status: Acute Priority: High Comment: 66-year-old male with COPD and chronic respiratory failure with multiple admissions in the past presented with worsening shortness of breath. Started on IV steroids and bronchodilators (2) Chronic respiratory failure Status: Acute
[2016-12-06] MEDS: (Lantus) Insulin Glargine, Recombinant SC SCH (22:33)
--- NOTE | 2016-12-07 01:03 | CP.PCM.PN ---
Subjective - Date & Time of Evaluation Date of Evaluation: 12/06/16 Time of Evaluation: 09:58 - Subjective Subjective: pt seen and evaluated, still c/o cough but denies fever or chills, denies chest pain on nebulizer, Iv steroids, monitoring Objective - Vital Signs/Intake and Output Vital Signs (last 24 hours): Temp Pulse Resp BP Pulse Ox 97.4 F L 110 H 20 133/85 100 12/06/16 23:05 12/06/16 23:05 12/06/16 23:05 12/06/16 23:05 12/06/16 23:05 Intake and Output: 12/06/16 12/07/16 18:59 06:59 Intake Total 350 Balance 350 - Medications Medications: Current Medications Albuterol/Ipratropium (Duoneb 3 Mg/0.5 Mg (3 Ml) Ud) 3 ml INH RQ6 [facility] Last Admin: 12/06/16 19:44 Dose: 3 ml Alprazolam (Xanax) 0.5 mg PO BID PRN PRN Reason: Anxiety Stop: 12/13/16 00:46 Last Admin: 12/06/16 22:34 Dose: 0.5 mg Enoxaparin Sodium (Lovenox) 40 mg SC DAILY [facility] Last Admin: 12/06/16 09:35 Dose: 40 mg Guaifenesin (Mucinex La) 600 mg PO BID [facility] Last Admin: 12/06/16 17:56 Dose: 600 mg Insulin Aspart (Novolog) 0 unit SC [facility] PRN Reason: Protocol Last Admin: 12/06/16 21:40 Dose: Not Given Insulin Glargine (Lantus) 18 unit SC HS [facility] Last Admin: 12/06/16 22:33 Dose: 18 units Lidocaine (Lidoderm) 1 ea TD DAILY [facility] Last Admin: 12/06/16 09:36 Dose: 1 ea Metformin HCl (Glucophage) 1,000 mg PO BID [facility] Last Admin: 12/06/16 17:56 Dose: 1,000 mg Methylprednisolone (Solu-Medrol) 40 mg IVP Q12 [facility] Last Admin: 12/06/16 22:35 Dose: 40 mg Montelukast Sodium (Singulair) 10 mg PO HS [facility] Last Admin: 12/06/16 22:34 Dose: 10 mg Pantoprazole Sodium (Protonix Ec Tab) 40 mg PO DAILY [facility] Last Admin: 12/06/16 09:34 Dose: 40 mg Pregabalin (Lyrica) 50 mg PO Q12 [facility] Last Admin: 12/06/16 22:35 Dose: 50 mg Roflumilast (Daliresp) 500 mcg PO DAILY [facility] Last Admin: 12/06/16 10:00 Dose: 500 mcg Rosuvastatin Calcium (Crestor) 10 mg PO HS [facility] Last Admin: 12/06/16 22:34 Dose: 10 mg Fluticasone/Salmeterol (Advair Diskus 250/50) 1 puff INH RBID [facility] Last Admin: 12/06/16 19:45 Dose: 1 puff - Labs Labs: 12/05/16 20:41 12/05/16 20:41 - Constitutional Appears: Well - Head Exam Head Exam: ATRAUMATIC, NORMAL INSPECTION, NORMOCEPHALIC - Eye Exam Eye Exam: EOMI, Normal appearance, PERRL Pupil Exam: NORMAL ACCOMODATION, PERRL - Respiratory Exam Respiratory Exam: Decreased Breath Sounds, Rhonchi, Wheezes - Cardiovascular Exam Cardiovascular Exam: REGULAR RHYTHM, +S1, +S2. absent: Murmur Assessment and Plan (1) Acute exacerbation of chronic obstructive pulmonary disease (COPD) Status: Acute (2) Allergic rhinitis Status: Chronic (3) Steroid-induced diabetes Status: Chronic
[2016-12-07] MEDS: Albuterol-Ipratrop 3 mg / 0.5 (3 ml) UD INH SCH ×4 (02:00→19:47)
[2016-12-07] MEDS: (Novolog) Insulin Aspart, Recombinant 100 u/ml 10 ml vial SC SCH ×4 (08:20→21:40)
[2016-12-07] MEDS: Fluticasone-Salmeterol 250-50mcg Diskus INH SCH ×2 (09:14→19:47)
[2016-12-07] MEDS: Lidocaine 5% Patch TD SCH (09:57)
[2016-12-07] MEDS: MethylPREDNISolone 40 mg Vial IVP SCH ×2 (09:58→21:39)
[2016-12-07] MEDS: guaiFENesin 600 mg ER Tab PO SCH ×2 (09:58→17:22)
[2016-12-07] MEDS: Enoxaparin 40 mg Syringe SC SCH (09:58)
[2016-12-07] MEDS: Pantoprazole 40 mg EC Tab PO SCH (09:59)
--- NOTE | 2016-12-07 11:11 | CP.PCM.PN ---
Subjective - Date & Time of Evaluation Date of Evaluation: 12/07/16 Time of Evaluation: 08:30 - Subjective Subjective: Patient seen and examined. Patient states breathing is better but still having some shortness of breath Denies cough, denies fever or chills, denies chest pain Objective - Vital Signs/Intake and Output Vital Signs (last 24 hours): Temp Pulse Resp BP Pulse Ox 97 F L 97 H 20 125/82 99 12/07/16 07:30 12/07/16 09:56 12/07/16 07:30 12/07/16 09:56 12/07/16 09:56 Intake and Output: 12/07/16 12/07/16 06:59 18:59 Intake Total 470 Output Total 900 Balance -430 - Medications Medications: Current Medications Albuterol/Ipratropium (Duoneb 3 Mg/0.5 Mg (3 Ml) Ud) 3 ml INH RQ6 [facility] Last Admin: 12/07/16 09:15 Dose: Not Given Alprazolam (Xanax) 0.5 mg PO BID PRN PRN Reason: Anxiety Stop: 12/13/16 00:46 Last Admin: 12/07/16 10:10 Dose: 0.5 mg Enoxaparin Sodium (Lovenox) 40 mg SC DAILY [facility] Last Admin: 12/07/16 09:58 Dose: 40 mg Guaifenesin (Mucinex La) 600 mg PO BID [facility] Last Admin: 12/07/16 09:58 Dose: 600 mg Insulin Aspart (Novolog) 0 unit SC [facility] PRN Reason: Protocol Last Admin: 12/07/16 08:20 Dose: 4 unit Insulin Glargine (Lantus) 18 unit SC HS [facility] Last Admin: 12/06/16 22:33 Dose: 18 units Lidocaine (Lidoderm) 1 ea TD DAILY [facility] Last Admin: 12/07/16 09:57 Dose: 1 ea Metformin HCl (Glucophage) 1,000 mg PO BID [facility] Last Admin: 12/07/16 10:01 Dose: 1,000 mg Methylprednisolone (Solu-Medrol) 40 mg IVP Q12 [facility] Last Admin: 12/07/16 09:58 Dose: 40 mg Montelukast Sodium (Singulair) 10 mg PO HS [facility] Last Admin: 12/06/16 22:34 Dose: 10 mg Pantoprazole Sodium (Protonix Ec Tab) 40 mg PO DAILY [facility] Last Admin: 12/07/16 09:59 Dose: 40 mg Pregabalin (Lyrica) 50 mg PO Q12 [facility] Last Admin: 12/07/16 09:59 Dose: 50 mg Roflumilast (Daliresp) 500 mcg PO DAILY [facility] Last Admin: 12/07/16 09:59 Dose: 500 mcg Rosuvastatin Calcium (Crestor) 10 mg PO HS [facility] Last Admin: 12/06/16 22:34 Dose: 10 mg Fluticasone/Salmeterol (Advair Diskus 250/50) 1 puff INH RBID [facility] Last Admin: 12/07/16 09:14 Dose: 1 puff - Labs Labs: 12/05/16 20:41 12/05/16 20:41 - Head Exam Head Exam: ATRAUMATIC, NORMOCEPHALIC - Eye Exam Eye Exam: Normal appearance - ENT Exam ENT Exam: Mucous Membranes Moist - Neck Exam Neck Exam: Normal Inspection - Respiratory Exam Respiratory Exam: Decreased Breath Sounds - Cardiovascular Exam Cardiovascular Exam: REGULAR RHYTHM - GI/Abdominal Exam GI & Abdominal Exam: Soft, Normal Bowel Sounds Assessment and Plan (1) Acute exacerbation of chronic obstructive pulmonary disease (COPD) Assessment & Plan: Continue current treatment but change IV steroids to prednisone Start Nasonex nasal spray Continue Singulair Status: Acute (2) Chronic respiratory failure Status: Acute
[2016-12-07] MEDS: Fluticasone Nasal 50 mcg/Spray NAS SCH (21:41)
[2016-12-07] MEDS: (Lantus) Insulin Glargine, Recombinant SC SCH (21:42)
[2016-12-08] MEDS: Albuterol-Ipratrop 3 mg / 0.5 (3 ml) UD INH SCH ×3 (01:05→14:00)
[2016-12-08] MEDS: Fluticasone-Salmeterol 250-50mcg Diskus INH SCH (08:24)
[2016-12-08] MEDS: (Novolog) Insulin Aspart, Recombinant 100 u/ml 10 ml vial SC SCH ×3 (08:36→17:19)
[2016-12-08] MEDS: Pantoprazole 40 mg EC Tab PO SCH (10:01)
[2016-12-08] MEDS: Enoxaparin 40 mg Syringe SC SCH (10:01)
[2016-12-08] MEDS: Fluticasone Nasal 50 mcg/Spray NAS SCH (10:01)
[2016-12-08] MEDS: MethylPREDNISolone 40 mg Vial IVP SCH (10:01)
[2016-12-08] MEDS: Lidocaine 5% Patch TD SCH (10:02)
--- NOTE | 2016-12-08 11:48 | CP.PCM.PN ---
Subjective - Date & Time of Evaluation Date of Evaluation: 12/08/16 Time of Evaluation: 11:47 - Subjective Subjective: PT SEEN AND EXAMINED TODAY, PT DENIES ANY CP, SOB, PALPITATIONS, RESP EASY AND UNLABORED. PT SEEN BY DR REDDY TODAY, CLEARED TO D/C HOME, PT CLEARED FOR D/C TODAY PER DR ZHANG AND MAUREEN, CONTINUE HOME MEDS PER DR ZHANG, PT EDUCATED TO CONTINUE TRILEGY AT HOME, F/U WITH DR ZHANG IN THE OFFICE WITHIN ONE WEEK, F/U W.DR REDDY IN THE OFFICE, CALL DR ZHANG'S OFFICE IF ANY FURTHER CONCERNS OR QUESTIONS, RETURN TO ED IF ANY WORSENING S/S, AGREE WITH POC, VERBALIZE UNDERSTANDING. Objective - Vital Signs/Intake and Output Vital Signs (last 24 hours): Temp Pulse Resp BP Pulse Ox 97.2 F L 82 18 111/70 100 12/08/16 08:42 12/08/16 08:42 12/08/16 08:42 12/08/16 08:42 12/08/16 08:42 Intake and Output: 12/08/16 12/08/16 06:59 18:59 Intake Total 440 Output Total 400 Balance 40 - Medications Medications: Current Medications Albuterol/Ipratropium (Duoneb 3 Mg/0.5 Mg (3 Ml) Ud) 3 ml INH RQ6 [facility] Last Admin: 12/08/16 08:24 Dose: 3 ml Alprazolam (Xanax) 0.5 mg PO BID PRN PRN Reason: Anxiety Stop: 12/13/16 00:46 Last Admin: 12/08/16 10:25 Dose: 0.5 mg Enoxaparin Sodium (Lovenox) 40 mg SC DAILY [facility] Last Admin: 12/08/16 10:01 Dose: 40 mg Fluticasone Propionate (Flonase) 1 spr LIZ Q12 [facility] Last Admin: 12/08/16 10:01 Dose: 1 spr Guaifenesin (Mucinex La) 600 mg PO BID [facility] Last Admin: 12/07/16 17:22 Dose: 600 mg Insulin Aspart (Novolog) 0 unit SC ACHS [facility] PRN Reason: Protocol Last Admin: 12/08/16 08:36 Dose: 4 unit Insulin Glargine (Lantus) 18 unit SC HS [facility] Last Admin: 12/07/16 21:42 Dose: 18 units Lidocaine (Lidoderm) 1 ea TD DAILY [facility] Last Admin: 12/08/16 10:02 Dose: 1 ea Metformin HCl (Glucophage) 1,000 mg PO BID [facility] Last Admin: 12/08/16 10:01 Dose: 1,000 mg Methylprednisolone (Solu-Medrol) 40 mg IVP Q12 [facility] Last Admin: 12/08/16 10:01 Dose: 40 mg Montelukast Sodium (Singulair) 10 mg PO HS [facility] Last Admin: 12/07/16 21:42 Dose: 10 mg Pantoprazole Sodium (Protonix Ec Tab) 40 mg PO DAILY [facility] Last Admin: 12/08/16 10:01 Dose: 40 mg Pregabalin (Lyrica) 75 mg PO Q12 [facility] Last Admin: 12/08/16 10:01 Dose: 75 mg Roflumilast (Daliresp) 500 mcg PO DAILY [facility] Last Admin: 12/08/16 10:00 Dose: 500 mcg Rosuvastatin Calcium (Crestor) 10 mg PO HS [facility] Last Admin: 12/07/16 21:40 Dose: 10 mg Fluticasone/Salmeterol (Advair Diskus 250/50) 1 puff INH RBID [facility] Last Admin: 12/08/16 08:24 Dose: 1 puff
[2016-12-08] MEDS: guaiFENesin 600 mg ER Tab PO SCH ×2 (12:01→17:21)
[2016-12-08 17:08] VITALS: BP 113/69; PULSE 120; RESP 20; TEMP 98.1; O2SAT 98
--- NOTE | 2016-12-08 23:49 | CP.PCM.PN ---
Subjective - Date & Time of Evaluation Date of Evaluation: 12/07/16 Time of Evaluation: 10:00 - Subjective Subjective: Patient seen and examined. Patient is less short of breath, less cough, less wheezing, pt is for discharge tommorow, he states he feels alot better Objective - Vital Signs/Intake and Output Vital Signs (last 24 hours): Temp Pulse Resp BP Pulse Ox 98.1 F 120 H 20 113/69 98 12/08/16 14:07 12/08/16 14:07 12/08/16 14:07 12/08/16 14:07 12/08/16 14:07 Intake and Output: 12/08/16 12/09/16 18:59 06:59 Intake Total 460 Balance 460 - Constitutional Appears: No Acute Distress - Head Exam Head Exam: ATRAUMATIC, NORMAL INSPECTION, NORMOCEPHALIC - Eye Exam Eye Exam: EOMI, Normal appearance, PERRL Pupil Exam: NORMAL ACCOMODATION, PERRL - ENT Exam ENT Exam: Mucous Membranes Moist - Respiratory Exam Respiratory Exam: Decreased Breath Sounds, Wheezes - Cardiovascular Exam Cardiovascular Exam: REGULAR RHYTHM, +S1, +S2. absent: Murmur - GI/Abdominal Exam GI & Abdominal Exam: Soft, Normal Bowel Sounds. absent: Tenderness Assessment and Plan (1) Acute exacerbation of chronic obstructive pulmonary disease (COPD) Status: Acute (2) Allergic rhinitis Status: Chronic (3) Steroid-induced diabetes Status: Chronic
--- NOTE | 2016-12-08 23:52 | CP.PCM.DIS ---
Provider - Provider Date of Admission: 12/07/16 16:38 Attending physician: Hal Garcia MD Time Spent in preparation of Discharge (in minutes): 30 Diagnosis - Discharge Diagnosis (1) Acute exacerbation of chronic obstructive pulmonary disease (COPD) Status: Acute Priority: High (2) Allergic rhinitis Status: Chronic Priority: Medium (3) Steroid-induced diabetes Status: Chronic Hospital Course - Lab Results Lab Results: Most Recent Lab Values WBC 11.7 K/uL (4.8-10.8) H 12/05/16 20:41 RBC 4.99 Mil/uL (4.40-5.90) 12/05/16 20:41 Hgb 10.8 g/dL (12.0-18.0) L 12/05/16 20:41 Hct 34.5 % (35.0-51.0) L 12/05/16 20:41 MCV 69.1 fL (80.0-94.0) L 12/05/16 20:41 MCH 21.6 pg (27.0-31.0) L 12/05/16 20:41 MCHC 31.2 g/dL (33.0-37.0) L 12/05/16 20:41 RDW 18.5 % (11.5-14.5) H 12/05/16 20:41 Plt Count 355 K/uL (130-400) 12/05/16 20:41 MPV 8.4 fL (7.2-11.7) 12/05/16 20:41 Neut % (Auto) 74.7 % (50.0-75.0) 12/05/16 20:41 Lymph % (Auto) 17.5 % (20.0-40.0) L 12/05/16 20:41 Edwards % (Auto) 4.8 % (0.0-10.0) 12/05/16 20:41 Eos % (Auto) 2.2 % (0.0-4.0) 12/05/16 20:41 Baso % (Auto) 0.8 % (0.0-2.0) 12/05/16 20:41 Neut # 8.7 K/uL (1.8-7.0) H 12/05/16 20:41 Lymph # 2.0 K/uL (1.0-4.3) 12/05/16 20:41 Edwards # 0.6 K/uL (0.0-0.8) 12/05/16 20:41 Eos # 0.3 K/uL (0.0-0.7) 12/05/16 20:41 Baso # 0.1 K/uL (0.0-0.2) 12/05/16 20:41 Sodium 137 mmol/L (132-148) 12/05/16 20:41 Potassium 3.8 mmol/L (3.6-5.2) 12/05/16 20:41 Chloride 96 mmol/L (98-107) L 12/05/16 20:41 Carbon Dioxide 28 mmol/L (22-30) 12/05/16 20:41 Anion Gap 18 (10-20) 12/05/16 20:41 BUN 6 mg/dL (9-20) L 12/05/16 20:41 Creatinine 0.6 MG/DL (0.8-1.5) L 12/05/16 20:41 Est GFR ( Amer) > 60 12/05/16 20:41 Est GFR (Non-Af Amer) > 60 12/05/16 20:41 POC Glucose (mg/dL) 403 mg/dL (65-110) H* 12/08/16 17:05 Random Glucose 232 mg/dL (75-110) H 12/05/16 20:41 Calcium 9.0 mg/dl (8.6-10.4) 12/05/16 20:41 Total Bilirubin 0.2 mg/dL (0.2-1.3) 12/05/16 20:41 AST 40 U/L (17-59) 12/05/16 20:41 ALT 48 U/L (21-72) 12/05/16 20:41 Alkaline Phosphatase 135 U/L (38-126) H 12/05/16 20:41 Troponin I < 0.0120 ng/mL (0.00-0.120) 12/05/16 20:41 NT-Pro-B Natriuret Pep 27.7 pg/mL (0-900) 12/05/16 20:41 Total Protein 7.3 g/dL (6.3-8.3) 12/05/16 20:41 Albumin 4.3 g/dL (3.5-5.0) 12/05/16 20:41 Globulin 3.0 gm/dL (2.2-3.9) 12/05/16 20:41 Albumin/Globulin Ratio 1.4 (1.0-2.1) 12/05/16 20:41 - Hospital Course Hospital Course: * PT SEEN AND EXAMINED TODAY, PT DENIES ANY CP, SOB, PALPITATIONS, RESP EASY AND UNLABORED. * CLEARED TO D/C HOME, * CONTINUE HOME MEDS * PT EDUCATED TO CONTINUE TRILEGY AT HOME, * F/U WITH ME IN THE OFFICE WITHIN ONE WEEK,CALL MY OFFICE IF ANY FURTHER CONCERNS OR QUESTIONS, * RETURN TO ED IF ANY WORSENING S/S, AGREE WITH POC, VERBALIZE UNDERSTANDING. Discharge Exam - Head Exam Head Exam: ATRAUMATIC, NORMAL INSPECTION, NORMOCEPHALIC - Eye Exam Eye Exam: EOMI, Normal appearance, PERRL Pupil Exam: NORMAL ACCOMODATION, PERRL - Respiratory Exam Respiratory Exam: Decreased Breath Sounds, Wheezes - Cardiovascular Exam Cardiovascular Exam: REGULAR RHYTHM, +S1, +S2 - GI/Abdominal Exam GI & Abdominal Exam: Normal Bowel Sounds - Neurological Exam Neurological exam: Alert, CN II-XII Intact, Normal Gait, Oriented x3, Reflexes Normal Discharge Plan - Follow Up Plan Condition: FAIR Disposition: HOME/ ROUTINE Instructions: Heart Failure (DC), Heart Healthy Diet (DC), COPD (Chronic Obstructive Pulmonary Disease) (DC) Additional Instructions: continue meds as per med rec follow up with Dr. Garcia in the office in 2-3 days follow up with Dr. Nuno in the office in 2-3 days Referrals: Ralf Nuno MD [Staff Provider] - Hal Garcia MD [Staff Provider] -
--- NOTE | 2016-12-12 23:56 | CARD ---
APPROVED REPORT EKG Measurement Heart [id number] <Conclusion> Sinus tachycardia Otherwise normal ECG
== END 2016-12-08 17:50 | disposition home or self-care (01) | DRG 191 ==
LOC: C.ER 19:32 → C.9E 20:29 → C.6T 23:22 → OBSVTOIN 12-07 16:38
PROVIDERS: ADMIT Internal Medicine; ATTEND Internal Medicine
DX: J44.1 Chronic obstructive pulmonary disease with (acute) exacerbation (principal); I13.0 Hypertensive heart and chronic kidney disease with heart failure and stage 1 through stage 4 chronic kidney disease, or unspecified chronic kidney disease; J96.10 Chronic respiratory failure, unspecified whether with hypoxia or hypercapnia; E09.22 Drug or chemical induced diabetes mellitus with diabetic chronic kidney disease; I50.9 Heart failure, unspecified; F41.9 Anxiety disorder, unspecified; J45.909 Unspecified asthma, uncomplicated; E78.00 Pure hypercholesterolemia, unspecified; N18.9 Chronic kidney disease, unspecified; Z79.4 Long term (current) use of insulin; Z87.891 Personal history of nicotine dependence; T38.0X5A Adverse effect of glucocorticoids and synthetic analogues, initial encounter

== ENCOUNTER 2016-12-25 23:42 | Inpatient (IN) | payer MEDICARE ==
[2016-12-25 23:42] VITALS: BMI 26.3
--- NOTE | 2016-12-25 23:49 | C.PDOC ---
History Of Present Illness Patient presents to the ED complaining of COPD exacerbation that is worse tonight. Patient reports he's had numerous intubations previously. Patient denies fever, chills, nausea, vomiting, chest pain, or palpitations. Time Seen by Provider: 12/25/16 23:48 Chief Complaint (Nursing): Shortness Of Breath History Per: Patient History/Exam Limitations: no limitations Onset/Duration Of Symptoms: Days Current Symptoms Are (Timing): Still Present Initiating Event: Other Exacerbating Factor(s): Exertion, Laying Flat, Coughing, Other Current Respiratory Medications: See Home Med List Severity: Severe Pain Scale Rating Of: 8 Associated Symptoms: denies: Fever, Chills Reports Recently: Seen In ED, Treated By A Physician, Hospitalized Recent travel outside of the [place]: No Additional History Per: Patient, Prior Records Past Medical History Reviewed: Historical Data, Nursing Documentation, Vital Signs Vital Signs: Last Vital Signs Temp 97.5 F L 12/25/16 23:43 Pulse 114 H 12/26/16 00:37 Resp 18 12/26/16 00:33 BP 138/83 12/26/16 00:33 Pulse Ox 100 12/26/16 01:58 - Medical History PMH: Anxiety, Arthritis (BACK; KNEES), Asthma, Bronchitis, CHF, COPD, Diabetes, Emphysema, Gastritis, HTN, Hypercholesterolemia, Pneumonia, Chronic Kidney Disease, Sleep Apnea - [facility] Procedures ASSISTANCE WITH RESPIRATORY VENTILATION, 24-96 HRS, CPAP (10/07/16) ASSISTANCE WITH RESPIRATORY VENTILATION, <24 HRS, CPAP (07/08/16) ASSISTANCE WITH RESPIRATORY VENTILATION, >96 HRS, CPAP (08/09/16) CONTINUOUS INVASIVE MECHANICAL VENTILATION <96 CONSEC HRS (11/29/14) INFLUENZA VACCINATION (06/02/14) INSERT ENDOTRACHEAL TUBE (11/29/14) LARYGNOSCOPY AND OTH TRACHEOSCOPY (04/18/15) MEASURE OF CARDIAC SAMPL & PRESSURE, L HEART, PERC APPROACH (12/01/15) NON-INVASIVE MECHANICAL VENTILATION (04/18/15) Family History: States: No Known Family Hx - Social History Hx Tobacco Use: Yes (8 years ppd smoker. quit 1.5 years ago) Hx Alcohol Use: No Hx Substance Use: No - Immunization History Hx Tetanus Toxoid Vaccination: Yes Hx Influenza Vaccination: Yes Hx Pneumococcal Vaccination: Yes Review Of Systems Constitutional: Positive for: Other (COPD exacerbation). Negative for: Fever, Chills ENT: Negative for: Throat Pain Cardiovascular: Negative for: Chest Pain, Palpitations Respiratory: Positive for: Cough, Shortness of Breath, SOB with Excertion Gastrointestinal: Negative for: Nausea, Vomiting Genitourinary: Negative for: Dysuria Musculoskeletal: Negative for: Back Pain Skin: Negative for: Rash, Lesions, Jaundice Neurological: Negative for: Weakness Psych: Positive for: Anxiety Physical Exam - Physical Exam Appears: In Acute Distress Skin: Warm, Dry Head: Atraumatic, Normacephalic Eye(s): bilateral: Normal Inspection Oral Mucosa: Moist Neck: Trachea Midline, Supple Chest: Symmetrical Cardiovascular: Rhythm Regular Respiratory: Decreased Breath Sounds (bilaterally), No Rales, No Rhonchi, Wheezing, Other (3-4 word sentences) Gastrointestinal/Abdominal: Soft, No Tenderness, Distention Back: No CVA Tenderness Extremity: Normal ROM Extremity: Bilateral: Atraumatic, Normal Color And Temperature Neurological/Psych: Oriented x3 Gait: Unable To Assess ED Course And Treatment - Laboratory Results Result Diagrams: 12/26/16 00:54 12/26/16 00:54 ECG: Interpreted By Me, Viewed By Me O2 Sat by Pulse Oximetry: 100 (room air) Pulse Ox Interpretation: Normal - Radiology CXR: Interpreted by Me, Viewed By Me CXR Interpretation: Yes: COPD, Cardiomegaly. No: Infiltrates Progress Note: Plan: ABG, EKG, Labs, Chest x-ray, Duoneb, Solu-Medrol Critical Care Time - Critical Care Note Total Time (in mins): 30 Documented critical care: time excludes all time spent performing seperately billable procedures. Disposition Discussed With : Hal Garcia Comment: accepted the pt on his service and took over the care ta 1:50AM Doctor Will See Patient In The: Hospital Counseled Patient/Family Regarding: Studies Performed, Diagnosis - Disposition Disposition: HOSPITALIZED Disposition Time: 23:48 Condition: GUARDED - POA Present On Arrival: None - Clinical Impression Clinical Impression: COPD exacerbation, Chronic respiratory failure - Scribe Statement The provider has reviewed the documentation as recorded by the Scribe Katie Benitez Provider Attestation: All medical record entries made by the Scribe were at my direction and personally dictated by me. I have reviewed the chart and agree that the record accurately reflects my personal performance of the history, physical exam, medical decision making, and the department course for this patient. I have also personally directed, reviewed, and agree with the discharge instructions and disposition. Decision To Admit - Pt Status Changed To: Hospital Disposition Of: Inpatient - Admit Certification Admit to Inpatient:: After my assessment, the patient will require hospitalization for at least two midnights. This is because of the severity of symptoms shown, intensity of services needed, and/or the medical risk in this patient being treated as an outpatient. - InPatient: Physician Admission Certification: I certify that this patient requires 2 or more midnights of care for the following reason:: After my assessment, the patient will require hospitalization for at least two midnights. This is because of the severity of symptoms shown, intensity of services needed, and/or the medical risk in this patient being treated as an outpatient. - . Bed Request Type: Telemetry Admitting Physician: Hal Garcia Patient Diagnosis: COPD exacerbation, Chronic respiratory failure
[2016-12-26] MEDS ORDERED: Albuterol-Ipratrop 3 mg / 0.5 (3 ml) UD ONE ×2 (00:15→00:32)
[2016-12-26] MEDS: Albuterol-Ipratrop 3 mg / 0.5 (3 ml) UD IH SCH ×3 (00:25→00:36)
[2016-12-26 00:59] LABS: BASO # 0.1 K/uL (0.0-0.2); EOS # 0.5 K/uL (0.0-0.7); EOS % 4.5 % (0.0-4.0); HEMATOCRIT 32.8 % (35.0-51.0); LYMPH % 24.5 % (20.0-40.0); MEAN CORPUSCULAR HEMOGLOBIN 20.3 pg (27.0-31.0); MEAN CORPUSCULAR HGB CONC 30.4 g/dL (33.0-37.0); MEAN PLATELET VOLUME 8.8 fL (7.2-11.7); MONO # 0.9 K/uL (0.0-0.8); MONO % 7.6 % (0.0-10.0); RED CELL DISTRIBUTION WIDTH 17.6 % (11.5-14.5); WHITE BLOOD COUNT 12.3 K/uL (4.8-10.8)
[2016-12-26 01:12] LABS: CHLORIDE 96 mmol/L (98-107); POTASSIUM 3.7 mmol/L (3.6-5.2); SODIUM 138 mmol/L (132-148)
[2016-12-26 01:14] LABS: GFR AFRICAN-AMERICAN > 60
[2016-12-26 01:15] LABS: ALB/GLOB RATIO 1.7 (1.0-2.1); ALKALINE PHOSPHATASE 127 U/L (38-126); ALT/SGPT 43 U/L (21-72); AST/SGOT 28 U/L (17-59); BILIRUBIN,TOTAL 0.4 mg/dL (0.2-1.3); BLOOD UREA NITROGEN 6 mg/dL (9-20); CALCIUM 9.2 mg/dl (8.6-10.4); CARBON DIOXIDE 27 mmol/L (22-30); GLUCOSE,RANDOM 97 mg/dL (75-110); TOTAL PROTEIN 7.3 g/dL (6.3-8.3)
[2016-12-26] MEDS ORDERED: Promethazine/Cod 6.25mg-10mg/5ml Syr UD PO PRN (02:18)
[2016-12-26] MEDS ORDERED: Albuterol HFA 90 mcg/actuation (8 g) IH PRN (02:18)
[2016-12-26] MEDS: Budesonide 0.5 mg/2 ml Inhal Susp UD INH SCH ×2 (07:40→20:35)
[2016-12-26] MEDS: Albuterol-Ipratrop 3 mg / 0.5 (3 ml) UD INH SCH ×3 (07:41→20:35)
[2016-12-26] MEDS: (Novolin R) Insulin Human Regular 100 units/ml vial SC SCH ×4 (08:29→22:24)
[2016-12-26] MEDS ORDERED: ARFORMOTEROL IH SCH ×2 (10:00→18:00)
[2016-12-26] MEDS ORDERED: Enoxaparin 40 mg Syringe SC SCH (10:00)
[2016-12-26] MEDS ORDERED: Home Med 1 UNIT (Metformin [Glucophage] 1,000 MG) PO SCH (10:00)
--- NOTE | 2016-12-26 10:53 | CP.PCM.HP ---
History of Present Illness - History of Present Illness History of Present Illness: CC: cough, congestion, shortness of breath HPI: Patient is a 66 year old male with h/o COPD, allergic rhinitis and PUNEET presents to the ED complaining of COPD exacerbation developed acute onset of cough, congestion and shortness of breath that is worse tonight he has white sputum , nasal congestion. he denies any pleuriic chest pain,hemottysisi, PND, orthopnea. Patient reports he's had numerous intubations previously. Patient denies fever, chills, nausea, vomiting, chest pain, or palpitations. Present on Admission - Present on Admission Any Indicators Present on Admission: No Review of Systems - Review of Systems Systems not reviewed;Unavailable: Acuity of Condition, Respiratory Distress - Constitutional Constitutional: Fatigue, Lethargy - EENT Eyes: absent: As Per HPI, Blind Spots, Blurred Vision, Change in Vision, Decreased Night Vision, Diplopia, Discharge, Dry Eye, Exophthalmos, Floaters, Irritation, Itchy Eyes, Loss of Peripheral Vision, Pain, Photophobia, Requires Corrective Lenses, Sees Flashes, Spots in Vision, Tunnel Vision, Other Visual Disturbances, Loss of Vision, Other Nose/Mouth/Throat: Nasal Congestion. absent: As Per HPI, Epistaxis, Nasal Discharge, Nasal Obstruction, Nasal Trauma, Nose Pain, Post Nasal Drip, Sinus Pain, Sinus Pressure, Bleeding Gums, Change in Voice, Dental Pain, Dry Mouth, Dysphagia, Halitosis, Hoarsness, Lip Swelling, Mouth Lesions, Mouth Pain, Odynophagia, Sore Throat, Throat Swelling, Tongue Swelling, Facial Pain, Neck Pain, Neck Mass, Other - Cardiovascular Cardiovascular: Chest Pain, Dyspnea on Exertion - Respiratory Respiratory: Cough, Wheezing, Chest Congestion, Change in Mucous Color. absent : As Per HPI, Dyspnea, Hemoptysis, Dyspnea on Exertion, Snoring, Stridor, Pain on Inspiration, Excessive Mucous Production, Pain with Coughing, Other - Genitourinary Genitourinary: absent: As Per HPI, Change in Urinary Stream, Difficulty Urinating, Dysuria, Flank Pain, Hematuria, Pyuria, Nocturia, Urinary Incontinence, Urinary Frequency, Urinary Hesitance, Urinary Urgency, Voiding Freq/Small Amts, Freq UTI, Hx Renal/Bladder Calculi, Hx /Renal Surgery, Bladder Distension, Other Past Patient History - Infectious Disease Hx of Infectious Diseases: None - Past Medical History & Family History Past Medical History?: Yes - Past Social History Smoking Status: Former Smoker - CARDIAC Hx Cardiac Disorders: Yes Hx Congestive Heart Failure: Yes Hx Hypercholesterolemia: Yes Hx Hypertension: Yes - PULMONARY Hx Respiratory Disorders: Yes Hx Asthma: Yes Hx Bronchitis: Yes Hx Chronic Obstructive Pulmonary Disease (COPD): Yes Hx Emphysema: Yes Hx Pneumonia: Yes Hx Sleep Apnea: Yes - NEUROLOGICAL Hx Neurological Disorder: No - HEENT Hx HEENT Problems: Yes Hx Cataracts: Yes (left cataract removed, r cataract) Other/Comment: wears eyeglasses for distance - RENAL Hx Chronic Kidney Disease: Yes - ENDOCRINE/METABOLIC Hx Endocrine Disorders: Yes Hx Diabetes Mellitus Type 2: Yes - HEMATOLOGICAL/ONCOLOGICAL Hx Blood Disorders: No - INTEGUMENTARY Hx Dermatological Problems: No - MUSCULOSKELETAL/RHEUMATOLOGICAL Hx Falls: Yes - GASTROINTESTINAL Hx Gastrointestinal Disorders: Yes Hx Gastritis: Yes - GENITOURINARY/GYNECOLOGICAL Hx Genitourinary Disorders: No - PSYCHIATRIC Hx Substance Use: No - SURGICAL HISTORY Hx Surgeries: Yes Hx Cataract Extraction: Yes (left eye, right eye) Hx Cardiac Catheterization: Yes (11/2015) Hx Eye Surgery: Yes Hx Pulmonary Surgery: Yes Other/Comment: LEFT EYE SURGERY - ANESTHESIA Hx Anesthesia: Yes Hx Anesthesia Reactions: Yes (pt dont know. aware) Meds Home Medications: Home Medication List Medication Instructions Recorded Confirmed Type Alprazolam [Xanax] 0.5 mg PO BID PRN #60 tablet 12/29/16 Rx Montelukast [Singulair] 10 mg PO HS #30 tab 12/29/16 12/25/16 Rx Pantoprazole [Protonix EC Tab] 40 mg PO DAILY #30 ect 12/29/16 Rx Promethazine/Codeine 5 ml PO Q8 PRN #240 ml 12/29/16 Rx [Phenergan/Codeine Oral Syrup] Roflumilast [Daliresp] 500 mcg PO DAILY #30 tab 12/29/16 Rx predniSONE [Prednisone] 30 mg PO DAILY #30 tab 12/29/16 Rx Allergies/Adverse Reactions: Allergies Allergy/AdvReac Type Severity Reaction Status Date / Time acetaminophen [From Tylenol] Allergy RASH Verified 12/25/16 23:46 FISH Allergy SWELLING Verified 12/25/16 23:46 shrimp Allergy SHORTNESS Verified 12/25/16 23:46 OF BREATH Physical Exam - Constitutional Appears: In Acute Distress Additional comments: mild to moderate resp distress - Head Exam Head Exam: ATRAUMATIC, NORMAL INSPECTION, NORMOCEPHALIC - Eye Exam Eye Exam: EOMI, Normal appearance, PERRL Pupil Exam: NORMAL ACCOMODATION, PERRL - ENT Exam ENT Exam: Mucous Membranes Moist Additional comments: nasal [place] congested and boggy - Respiratory Exam Respiratory Exam: Decreased Breath Sounds, Wheezes, NORMAL BREATHING PATTERN - Cardiovascular Exam Cardiovascular Exam: REGULAR RHYTHM - GI/Abdominal Exam GI & Abdominal Exam: Normal Bowel Sounds, Soft. absent: Tenderness - Neurological Exam Neurological exam: Alert, CN II-XII Intact, Normal Gait, Oriented x3, Reflexes Normal Results - Vital Signs Recent Vital Signs: Last Vital Signs Temp 97.9 F 12/26/16 04:15 Pulse 92 H 12/26/16 07:48 Resp 17 12/26/16 04:15 BP 109/73 12/26/16 04:15 Pulse Ox 97 12/26/16 04:15 - Labs Result Diagrams: 12/26/16 00:54 12/26/16 00:54 Labs: Laboratory Results - last 24 hr 12/26/16 07:24 POC Glucose (mg/dL) 264 H Assessment & Plan (1) COPD exacerbation Status: Acute Priority: Medium (2) Chronic respiratory failure Status: Acute (3) Acute bronchitis with asthma with acute exacerbation Status: Acute (4) Allergic rhinitis Status: Chronic Priority: Medium (5) Steroid-induced diabetes Status: Chronic
[2016-12-26] MEDS: Pantoprazole 40 mg EC Tab PO SCH (11:55)
[2016-12-26] MEDS: Aluminum Hydroxide/Magnesium Hydroxide Susp (30 mL) PO SCH ×4 (11:58→22:34)
[2016-12-26] MEDS: guaiFENesin 100 mg/5 ml Syrup UD PO SCH ×4 (11:59→22:34)
--- NOTE | 2016-12-26 12:08 | RAD ---
PROCEDURE: CHEST RADIOGRAPH, 1 VIEW HISTORY: Shortness of breath COMPARISON: None available. FINDINGS: LUNGS: Biapical pleural thickening with upper lobe granulomatous changes. No focal infiltrate or effusion. PLEURA: No pneumothorax or pleural fluid seen. CARDIOVASCULAR: Normal. OSSEOUS STRUCTURES: Degenerative changes in the spine with paravertebral osteophytes. VISUALIZED UPPER ABDOMEN: Normal. OTHER FINDINGS: None. IMPRESSION: Biapical pleural thickening with upper lobe granulomatous changes. No focal infiltrate or effusion.
[2016-12-26] MEDS: Lidocaine 5% Patch TD SCH (12:20)
[2016-12-26] MEDS: Enoxaparin 40 mg Syringe SC SCH (13:03)
[2016-12-26] MEDS: Fluticasone-Salmeterol 250-50mcg Diskus INH SCH (13:32)
[2016-12-26] MEDS: MethylPREDNISolone 40 mg Vial IM SCH (22:34)
[2016-12-26] MEDS: (Lantus) Insulin Glargine, Recombinant SC SCH (22:35)
[2016-12-27] MEDS: Albuterol-Ipratrop 3 mg / 0.5 (3 ml) UD INH SCH ×4 (03:40→19:34)
[2016-12-27] MEDS: Budesonide 0.5 mg/2 ml Inhal Susp UD INH SCH ×2 (07:48→19:33)
[2016-12-27] MEDS: Fluticasone-Salmeterol 250-50mcg Diskus INH SCH ×2 (07:49→19:35)
[2016-12-27 07:56] LABS: URINE BILIRUBIN NEGATIVE (NEGATIVE); URINE BLOOD NEGATIVE (NEGATIVE); URINE GLUCOSE (UA) NORMAL (Normal); URINE KETONE NEGATIVE (NEGATIVE); URINE LEUKOCYTE ESTERASE NEG Leu/uL (Negative); URINE PROTEIN NEGATIVE (NEGATIVE); URINE UROBILINOGEN NORMAL mg/dL (0.2-1.0); WBC URINE 1 /hpf (0-5)
[2016-12-27 07:59] LABS: URINE COLOR LIGHT YELLOW (YELLOW)
[2016-12-27] MEDS: (Novolin R) Insulin Human Regular 100 units/ml vial SC SCH ×4 (08:00→21:48)
[2016-12-27] MEDS: Lidocaine 5% Patch TD SCH (09:09)
[2016-12-27] MEDS: guaiFENesin 100 mg/5 ml Syrup UD PO SCH ×4 (09:10→21:47)
[2016-12-27] MEDS: Pantoprazole 40 mg EC Tab PO SCH (09:10)
[2016-12-27] MEDS: MethylPREDNISolone 40 mg Vial IM SCH (09:13)
[2016-12-27] MEDS: Aluminum Hydroxide/Magnesium Hydroxide Susp (30 mL) PO SCH ×4 (09:14→21:46)
[2016-12-27] MEDS: Enoxaparin 40 mg Syringe SC SCH (09:17)
[2016-12-27] MEDS ORDERED: Albuterol HFA 90 mcg/actuation (8 g) IH PRN (17:15)
[2016-12-27] MEDS: (Lantus) Insulin Glargine, Recombinant SC SCH (21:47)
[2016-12-27] MEDS: MethylPREDNISolone 40 mg Vial IV SCH (21:48)
--- NOTE | 2016-12-27 22:16 | CP.PCM.PN ---
Subjective - Date & Time of Evaluation Date of Evaluation: 12/27/16 Time of Evaluation: 11:20 - Subjective Subjective: Pt seen & examined, less cough, less short of breath Objective - Vital Signs/Intake and Output Vital Signs (last 24 hours): Temp Pulse Resp BP Pulse Ox 98.2 F 105 H 18 116/72 98 12/27/16 15:39 12/27/16 15:39 12/27/16 15:39 12/27/16 15:39 12/27/16 15:39 - Medications Medications: Current Medications Al Hydrox/Mg Hydrox/Simethicone (Maalox 30 Ml) 15 ml PO QID [facility] Last Admin: 12/27/16 21:46 Dose: 15 ml Albuterol (Ventolin Hfa 90 Mcg/Actuation (8 G)) 90 puff IH RQ6 PRN PRN Reason: Shortness of Breath Albuterol/Ipratropium (Duoneb 3 Mg/0.5 Mg (3 Ml) Ud) 3 ml INH RQ6 [facility] Last Admin: 12/27/16 19:34 Dose: 3 ml Alprazolam (Xanax) 0.5 mg PO BID PRN PRN Reason: Anxiety Stop: 01/02/17 02:19 Last Admin: 12/27/16 21:53 Dose: 0.5 mg Budesonide (Pulmicort Respules) 0.5 mg INH RBID [facility] Last Admin: 12/27/16 19:33 Dose: 0.5 mg Enoxaparin Sodium (Lovenox) 40 mg SC DAILY [facility] Last Admin: 12/27/16 09:17 Dose: 40 mg Guaifenesin (Robitussin) 100 mg PO QID [facility] Last Admin: 12/27/16 21:47 Dose: 100 mg Home Med (Arformoterol Tartrate [Brovana]) 1 mauricio IH BID [facility] Insulin Glargine (Lantus) 16 unit SC HS [facility] Last Admin: 12/27/16 21:47 Dose: 16 units Insulin Human Regular (Novolin R) 4 unit SC ACHS [facility] Last Admin: 12/27/16 21:48 Dose: Not Given Lidocaine (Lidoderm) 1 ea TD DAILY [facility] Last Admin: 12/27/16 09:09 Dose: 1 ea Metformin HCl (Glucophage) 1,000 mg PO BIDBS [facility] Last Admin: 12/27/16 17:37 Dose: 1,000 mg Methylprednisolone (Solu-Medrol) 40 mg IV Q12 [facility] Last Admin: 12/27/16 21:48 Dose: 40 mg Metoclopramide HCl (Reglan) 10 mg PO Q6 PRN PRN Reason: Nausea/Vomiting Last Admin: 12/27/16 09:17 Dose: 10 mg Montelukast Sodium (Singulair) 10 mg PO HS [facility] Last Admin: 12/27/16 21:53 Dose: 10 mg Pantoprazole Sodium (Protonix Ec Tab) 40 mg PO DAILY [facility] Last Admin: 12/27/16 09:10 Dose: 40 mg Promethazine HCl/Codeine (Phenergan/Codeine Oral Syrup) 5 ml PO Q8 PRN PRN Reason: Cough Roflumilast (Daliresp) 500 mcg PO DAILY [facility] Last Admin: 12/27/16 09:17 Dose: 500 mcg Rosuvastatin Calcium (Crestor) 10 mg PO HS [facility] Last Admin: 12/27/16 21:46 Dose: 10 mg Fluticasone/Salmeterol (Advair Diskus 250/50) 1 puff INH RBID [facility] Last Admin: 12/27/16 19:35 Dose: Not Given - Constitutional Appears: No Acute Distress - Head Exam Head Exam: ATRAUMATIC, NORMAL INSPECTION, NORMOCEPHALIC - Eye Exam Eye Exam: EOMI, Normal appearance, PERRL Pupil Exam: NORMAL ACCOMODATION, PERRL - ENT Exam ENT Exam: Mucous Membranes Moist, Normal Exam - Respiratory Exam Respiratory Exam: Decreased Breath Sounds, Rales, Rhonchi - Cardiovascular Exam Cardiovascular Exam: REGULAR RHYTHM, +S1, +S2. absent: Murmur - GI/Abdominal Exam GI & Abdominal Exam: Soft, Normal Bowel Sounds. absent: Tenderness Assessment and Plan (1) COPD exacerbation Status: Acute (2) Chronic respiratory failure Status: Acute (3) Acute bronchitis with asthma with acute exacerbation Status: Acute (4) Allergic rhinitis Status: Chronic (5) Steroid-induced diabetes Status: Chronic
--- NOTE | 2016-12-28 00:26 | CARD ---
APPROVED REPORT EKG Measurement Heart [id number] <Conclusion> Sinus tachycardia Otherwise normal ECG
[2016-12-28] MEDS: Budesonide 0.5 mg/2 ml Inhal Susp UD INH SCH ×2 (08:00→19:23)
[2016-12-28] MEDS: Albuterol-Ipratrop 3 mg / 0.5 (3 ml) UD INH SCH ×3 (08:00→19:22)
[2016-12-28] MEDS: Fluticasone-Salmeterol 250-50mcg Diskus INH SCH ×2 (08:00→19:22)
[2016-12-28] MEDS: (Lantus) Insulin Glargine, Recombinant SC SCH (21:30)
[2016-12-28] MEDS: Aluminum Hydroxide/Magnesium Hydroxide Susp (30 mL) PO SCH (21:31)
[2016-12-28] MEDS: guaiFENesin 100 mg/5 ml Syrup UD PO SCH (21:31)
[2016-12-28] MEDS: MethylPREDNISolone 40 mg Vial IV SCH (21:32)
[2016-12-28] MEDS: (Novolin R) Insulin Human Regular 100 units/ml vial SC SCH (21:35)
--- NOTE | 2016-12-28 23:10 | CP.PCM.PN ---
Subjective - Date & Time of Evaluation Date of Evaluation: 12/28/16 Time of Evaluation: 11:27 - Subjective Subjective: Pt is less short of breath, less cough, less wheezing Objective - Vital Signs/Intake and Output Vital Signs (last 24 hours): Temp Pulse Resp BP Pulse Ox 98.2 F 105 H 18 116/72 98 12/27/16 15:39 12/27/16 15:39 12/27/16 15:39 12/27/16 15:39 12/27/16 15:39 - Medications Medications: Current Medications Al Hydrox/Mg Hydrox/Simethicone (Maalox 30 Ml) 15 ml PO QID [facility] Last Admin: 12/28/16 21:31 Dose: 15 ml Albuterol (Ventolin Hfa 90 Mcg/Actuation (8 G)) 90 puff IH RQ6 PRN PRN Reason: Shortness of Breath Albuterol/Ipratropium (Duoneb 3 Mg/0.5 Mg (3 Ml) Ud) 3 ml INH RQ6 [facility] Last Admin: 12/28/16 19:22 Dose: 3 ml Alprazolam (Xanax) 0.5 mg PO BID PRN PRN Reason: Anxiety Stop: 01/02/17 02:19 Last Admin: 12/28/16 21:34 Dose: 0.5 mg Budesonide (Pulmicort Respules) 0.5 mg INH RBID [facility] Last Admin: 12/28/16 19:23 Dose: 0.5 mg Enoxaparin Sodium (Lovenox) 40 mg SC DAILY [facility] Last Admin: 12/27/16 09:17 Dose: 40 mg Guaifenesin (Robitussin) 100 mg PO QID [facility] Last Admin: 12/28/16 21:31 Dose: 100 mg Home Med (Arformoterol Tartrate [Brovana]) 1 mauricio IH BID [facility] Insulin Glargine (Lantus) 16 unit SC HS [facility] Last Admin: 12/28/16 21:30 Dose: 16 units Insulin Human Regular (Novolin R) 4 unit SC ACHS [facility] Last Admin: 12/28/16 21:35 Dose: 4 unit Lidocaine (Lidoderm) 1 ea TD DAILY [facility] Last Admin: 12/27/16 09:09 Dose: 1 ea Metformin HCl (Glucophage) 1,000 mg PO BIDBS [facility] Last Admin: 12/27/16 17:37 Dose: 1,000 mg Methylprednisolone (Solu-Medrol) 40 mg IV Q12 [facility] Last Admin: 12/28/16 21:32 Dose: 40 mg Metoclopramide HCl (Reglan) 10 mg PO Q6 PRN PRN Reason: Nausea/Vomiting Last Admin: 12/27/16 09:17 Dose: 10 mg Montelukast Sodium (Singulair) 10 mg PO HS [facility] Last Admin: 12/28/16 21:32 Dose: 10 mg Pantoprazole Sodium (Protonix Ec Tab) 40 mg PO DAILY [facility] Last Admin: 12/27/16 09:10 Dose: 40 mg Promethazine HCl/Codeine (Phenergan/Codeine Oral Syrup) 5 ml PO Q8 PRN PRN Reason: Cough Roflumilast (Daliresp) 500 mcg PO DAILY [facility] Last Admin: 12/27/16 09:17 Dose: 500 mcg Rosuvastatin Calcium (Crestor) 10 mg PO HS [facility] Last Admin: 12/28/16 21:32 Dose: 10 mg Fluticasone/Salmeterol (Advair Diskus 250/50) 1 puff INH RBID [facility] Last Admin: 12/28/16 19:22 Dose: 1 puff - Constitutional Appears: No Acute Distress - Head Exam Head Exam: ATRAUMATIC, NORMAL INSPECTION, NORMOCEPHALIC - Respiratory Exam Respiratory Exam: Decreased Breath Sounds, Wheezes - Cardiovascular Exam Cardiovascular Exam: REGULAR RHYTHM, +S1, +S2. absent: Murmur - GI/Abdominal Exam GI & Abdominal Exam: Soft, Normal Bowel Sounds. absent: Tenderness Assessment and Plan (1) COPD exacerbation Status: Acute (2) Chronic respiratory failure Status: Acute (3) Acute bronchitis with asthma with acute exacerbation Status: Acute (4) Allergic rhinitis Status: Chronic (5) Steroid-induced diabetes Status: Chronic
[2016-12-29 00:20] VITALS: RESP 20
[2016-12-29] MEDS: Albuterol-Ipratrop 3 mg / 0.5 (3 ml) UD INH SCH ×5 (01:04→19:19)
[2016-12-29] MEDS: Budesonide 0.5 mg/2 ml Inhal Susp UD INH SCH ×2 (07:24→19:19)
[2016-12-29] MEDS: Fluticasone-Salmeterol 250-50mcg Diskus INH SCH ×2 (07:28→19:18)
[2016-12-29] MEDS: (Novolin R) Insulin Human Regular 100 units/ml vial SC SCH ×3 (08:29→17:55)
[2016-12-29] MEDS: Pantoprazole 40 mg EC Tab PO SCH (09:24)
[2016-12-29] MEDS: guaiFENesin 100 mg/5 ml Syrup UD PO SCH ×3 (09:25→17:48)
[2016-12-29] MEDS: Enoxaparin 40 mg Syringe SC SCH (09:25)
[2016-12-29] MEDS: Aluminum Hydroxide/Magnesium Hydroxide Susp (30 mL) PO SCH ×2 (09:25→17:49)
[2016-12-29] MEDS: Lidocaine 5% Patch TD SCH (09:26)
[2016-12-29] MEDS: MethylPREDNISolone 40 mg Vial IV SCH (09:28)
--- NOTE | 2016-12-29 12:12 | CP.PCM.PN ---
Subjective - Date & Time of Evaluation Date of Evaluation: 12/29/16 Time of Evaluation: 11:28 - Subjective Subjective: LESS SHORT OF BREATH, LESS COUGH, LESS WHEEZING, MIGHT DISCHARGE PT TODAY Objective - Vital Signs/Intake and Output Vital Signs (last 24 hours): Temp Pulse Resp BP Pulse Ox 97.3 F L 114 H 20 112/68 96 12/29/16 08:42 12/29/16 08:42 12/29/16 08:42 12/29/16 08:42 12/29/16 08:42 - Medications Medications: Current Medications Al Hydrox/Mg Hydrox/Simethicone (Maalox 30 Ml) 15 ml PO QID [facility] Last Admin: 12/29/16 09:25 Dose: 15 ml Albuterol (Ventolin Hfa 90 Mcg/Actuation (8 G)) 90 puff IH RQ6 PRN PRN Reason: Shortness of Breath Albuterol/Ipratropium (Duoneb 3 Mg/0.5 Mg (3 Ml) Ud) 3 ml INH RQ6 [facility] Last Admin: 12/29/16 07:23 Dose: 3 ml Alprazolam (Xanax) 0.5 mg PO BID PRN PRN Reason: Anxiety Stop: 01/02/17 02:19 Last Admin: 12/29/16 09:24 Dose: 0.5 mg Budesonide (Pulmicort Respules) 0.5 mg INH RBID [facility] Last Admin: 12/29/16 07:24 Dose: 0.5 mg Enoxaparin Sodium (Lovenox) 40 mg SC DAILY [facility] Last Admin: 12/29/16 09:25 Dose: 40 mg Guaifenesin (Robitussin) 100 mg PO QID [facility] Last Admin: 12/29/16 09:25 Dose: 100 mg Home Med (Arformoterol Tartrate [Brovana]) 1 mauricio IH BID [facility] Insulin Glargine (Lantus) 16 unit SC HS [facility] Last Admin: 12/28/16 21:30 Dose: 16 units Insulin Human Regular (Novolin R) 4 unit SC ACHS [facility] Last Admin: 12/29/16 08:29 Dose: 4 unit Lidocaine (Lidoderm) 1 ea TD DAILY [facility] Last Admin: 12/29/16 09:26 Dose: 1 ea Metformin HCl (Glucophage) 1,000 mg PO BIDBS [facility] Last Admin: 12/29/16 09:24 Dose: 1,000 mg Methylprednisolone (Solu-Medrol) 40 mg IV Q12 [facility] Last Admin: 12/29/16 09:28 Dose: 40 mg Metoclopramide HCl (Reglan) 10 mg PO Q6 PRN PRN Reason: Nausea/Vomiting Last Admin: 12/27/16 09:17 Dose: 10 mg Montelukast Sodium (Singulair) 10 mg PO HS [facility] Last Admin: 12/28/16 21:32 Dose: 10 mg Pantoprazole Sodium (Protonix Ec Tab) 40 mg PO DAILY [facility] Last Admin: 12/29/16 09:24 Dose: 40 mg Promethazine HCl/Codeine (Phenergan/Codeine Oral Syrup) 5 ml PO Q8 PRN PRN Reason: Cough Roflumilast (Daliresp) 500 mcg PO DAILY [facility] Last Admin: 12/27/16 09:17 Dose: 500 mcg Rosuvastatin Calcium (Crestor) 10 mg PO HS [facility] Last Admin: 12/28/16 21:32 Dose: 10 mg Fluticasone/Salmeterol (Advair Diskus 250/50) 1 puff INH RBID [facility] Last Admin: 12/28/16 19:22 Dose: 1 puff Assessment and Plan (1) COPD exacerbation Status: Acute (2) Chronic respiratory failure Status: Acute (3) Acute bronchitis with asthma with acute exacerbation Status: Acute (4) Allergic rhinitis Status: Chronic (5) Steroid-induced diabetes Status: Chronic
--- NOTE | 2016-12-29 15:34 | CP.PCM.PN ---
Subjective - Date & Time of Evaluation Date of Evaluation: 12/29/16 Time of Evaluation: 12:00 - Subjective Subjective: Pt seen an dexamine d today , statees SOB improved, less cough and congestion No overnight events reported by RN Objective - Vital Signs/Intake and Output Vital Signs (last 24 hours): Temp Pulse Resp BP Pulse Ox 97.3 F L 114 H 20 112/68 96 12/29/16 08:42 12/29/16 08:42 12/29/16 08:42 12/29/16 08:42 12/29/16 08:42 - Medications Medications: Current Medications Al Hydrox/Mg Hydrox/Simethicone (Maalox 30 Ml) 15 ml PO QID [facility] Last Admin: 12/29/16 09:25 Dose: 15 ml Albuterol (Ventolin Hfa 90 Mcg/Actuation (8 G)) 90 puff IH RQ6 PRN PRN Reason: Shortness of Breath Albuterol/Ipratropium (Duoneb 3 Mg/0.5 Mg (3 Ml) Ud) 3 ml INH RQ6 [facility] Last Admin: 12/29/16 13:29 Dose: 3 ml Alprazolam (Xanax) 0.5 mg PO BID PRN PRN Reason: Anxiety Stop: 01/02/17 02:19 Last Admin: 12/29/16 09:24 Dose: 0.5 mg Budesonide (Pulmicort Respules) 0.5 mg INH RBID [facility] Last Admin: 12/29/16 07:24 Dose: 0.5 mg Enoxaparin Sodium (Lovenox) 40 mg SC DAILY [facility] Last Admin: 12/29/16 09:25 Dose: 40 mg Guaifenesin (Robitussin) 100 mg PO QID [facility] Last Admin: 12/29/16 13:00 Dose: 100 mg Home Med (Arformoterol Tartrate [Brovana]) 1 mauricio IH BID [facility] Insulin Glargine (Lantus) 16 unit SC HS [facility] Last Admin: 12/28/16 21:30 Dose: 16 units Insulin Human Regular (Novolin R) 4 unit SC ACHS [facility] Last Admin: 12/29/16 12:24 Dose: 4 unit Lidocaine (Lidoderm) 1 ea TD DAILY [facility] Last Admin: 12/29/16 09:26 Dose: 1 ea Metformin HCl (Glucophage) 1,000 mg PO BIDBS [facility] Last Admin: 12/29/16 09:24 Dose: 1,000 mg Methylprednisolone (Solu-Medrol) 40 mg IV Q12 [facility] Last Admin: 12/29/16 09:28 Dose: 40 mg Metoclopramide HCl (Reglan) 10 mg PO Q6 PRN PRN Reason: Nausea/Vomiting Last Admin: 12/27/16 09:17 Dose: 10 mg Montelukast Sodium (Singulair) 10 mg PO HS [facility] Last Admin: 12/28/16 21:32 Dose: 10 mg Pantoprazole Sodium (Protonix Ec Tab) 40 mg PO DAILY [facility] Last Admin: 12/29/16 09:24 Dose: 40 mg Promethazine HCl/Codeine (Phenergan/Codeine Oral Syrup) 5 ml PO Q8 PRN PRN Reason: Cough Roflumilast (Daliresp) 500 mcg PO DAILY [facility] Last Admin: 12/29/16 10:00 Dose: 500 mcg Rosuvastatin Calcium (Crestor) 10 mg PO HS [facility] Last Admin: 12/28/16 21:32 Dose: 10 mg Fluticasone/Salmeterol (Advair Diskus 250/50) 1 puff INH RBID [facility] Last Admin: 12/29/16 07:28 Dose: Not Given Assessment and Plan - Assessment and Plan (Free Text) Assessment: 66 yr old male admitted for exc. COPD, vss- stable d/w Dr. Garcia, stable for discharge home today and f/u with Dr. Garcia office in 1 week Discharge plan discussed with patient who understand and agrees with plan Pateint instructed to returns to ED if symptoms returns
[2016-12-29 15:50] VITALS: BP 117/74; PULSE 107; TEMP 98.1; O2SAT 99
--- NOTE | 2016-12-30 21:37 | CP.PCM.DIS ---
Provider - Provider Date of Admission: 12/26/16 02:00 Attending physician: Hal Garcia MD Time Spent in preparation of Discharge (in minutes): 30 Diagnosis - Discharge Diagnosis (1) COPD exacerbation Status: Acute Priority: Medium (2) Chronic respiratory failure Status: Acute (3) Acute bronchitis with asthma with acute exacerbation Status: Acute (4) Allergic rhinitis Status: Chronic Priority: Medium (5) Steroid-induced diabetes Status: Chronic Hospital Course - Lab Results Lab Results: Micro Results 12/26/16 04:05 Nose MRSA Culture (Admit) - Final MRSA NOT DETECTED Most Recent Lab Values WBC 12.3 K/uL (4.8-10.8) H 12/26/16 00:54 RBC 4.89 Mil/uL (4.40-5.90) 12/26/16 00:54 Hgb 10.0 g/dL (12.0-18.0) L 12/26/16 00:54 Hct 32.8 % (35.0-51.0) L 12/26/16 00:54 MCV 67.0 fL (80.0-94.0) L D 12/26/16 00:54 MCH 20.3 pg (27.0-31.0) L 12/26/16 00:54 MCHC 30.4 g/dL (33.0-37.0) L 12/26/16 00:54 RDW 17.6 % (11.5-14.5) H 12/26/16 00:54 Plt Count 392 K/uL (130-400) 12/26/16 00:54 MPV 8.8 fL (7.2-11.7) 12/26/16 00:54 Neut % (Auto) 62.4 % (50.0-75.0) 12/26/16 00:54 Lymph % (Auto) 24.5 % (20.0-40.0) 12/26/16 00:54 [place] % (Auto) 7.6 % (0.0-10.0) 12/26/16 00:54 Eos % (Auto) 4.5 % (0.0-4.0) H 12/26/16 00:54 Baso % (Auto) 1.0 % (0.0-2.0) 12/26/16 00:54 Neut # 7.7 K/uL (1.8-7.0) H 12/26/16 00:54 Lymph # 3.0 K/uL (1.0-4.3) 12/26/16 00:54 [place] # 0.9 K/uL (0.0-0.8) H 12/26/16 00:54 Eos # 0.5 K/uL (0.0-0.7) 12/26/16 00:54 Baso # 0.1 K/uL (0.0-0.2) 12/26/16 00:54 Sodium 138 mmol/L (132-148) 12/26/16 00:54 Potassium 3.7 mmol/L (3.6-5.2) 12/26/16 00:54 Chloride 96 mmol/L (98-107) L 12/26/16 00:54 Carbon Dioxide 27 mmol/L (22-30) 12/26/16 00:54 Anion Gap 19 (10-20) 12/26/16 00:54 BUN 6 mg/dL (9-20) L 12/26/16 00:54 Creatinine 0.6 MG/DL (0.8-1.5) L 12/26/16 00:54 Est GFR ( Amer) > 60 12/26/16 00:54 Est GFR (Non-Af Amer) > 60 12/26/16 00:54 POC Glucose (mg/dL) 246 mg/dL (65-110) H 12/28/16 21:17 Random Glucose 97 mg/dL (75-110) 12/26/16 00:54 Calcium 9.2 mg/dl (8.6-10.4) 12/26/16 00:54 Magnesium 2.0 mg/dL (1.6-2.3) 12/26/16 00:54 Total Bilirubin 0.4 mg/dL (0.2-1.3) 12/26/16 00:54 AST 28 U/L (17-59) 12/26/16 00:54 ALT 43 U/L (21-72) 12/26/16 00:54 Alkaline Phosphatase 127 U/L (38-126) H 12/26/16 00:54 Total Protein 7.3 g/dL (6.3-8.3) 12/26/16 00:54 Albumin 4.6 g/dL (3.5-5.0) 12/26/16 00:54 Globulin 2.7 gm/dL (2.2-3.9) 12/26/16 00:54 Albumin/Globulin Ratio 1.7 (1.0-2.1) 12/26/16 00:54 Urine Color Light yellow (YELLOW) 12/27/16 07:42 Urine Clarity Clear (Clear) 12/27/16 07:42 Urine pH 6.0 (5.0-8.0) 12/27/16 07:42 Ur Specific Victor 1.005 (1.003-1.030) 12/27/16 07:42 Urine Protein Negative mg/dL (NEGATIVE) 12/27/16 07:42 Urine Glucose (UA) Normal mg/dL (Normal) 12/27/16 07:42 Urine Ketones Negative mg/dL (NEGATIVE) 12/27/16 07:42 Urine Blood Negative (NEGATIVE) 12/27/16 07:42 Urine Nitrate Negative (NEGATIVE) 12/27/16 07:42 Urine Bilirubin Negative (NEGATIVE) 12/27/16 07:42 Urine Urobilinogen Normal mg/dL (0.2-1.0) 12/27/16 07:42 Ur Leukocyte Esterase Neg Eulalio/uL (Negative) 12/27/16 07:42 Urine WBC (Auto) 1 /hpf (0-5) 12/27/16 07:42 Ur Squamous Epith Cells 1 /hpf (0-5) 12/27/16 07:42 - Hospital Course Hospital Course: Pt seen an dexamine d today , statees SOB improved, less cough and congestion No overnight events reported by RN Pt is for discharge today Discharge Exam - Head Exam Head Exam: ATRAUMATIC, NORMAL INSPECTION, NORMOCEPHALIC - Eye Exam Eye Exam: Normal appearance - ENT Exam ENT Exam: Mucous Membranes Moist - Respiratory Exam Respiratory Exam: Clear to PA & Lateral, NORMAL BREATHING PATTERN - Cardiovascular Exam Cardiovascular Exam: REGULAR RHYTHM, +S1, +S2 - GI/Abdominal Exam GI & Abdominal Exam: Normal Bowel Sounds - Rectal Exam Rectal Exam: Deferred Discharge Plan - Discharge Medications Prescriptions: Roflumilast [Daliresp] 500 mcg PO DAILY #30 tab Promethazine/Codeine [Phenergan/Codeine Oral Syrup] 5 ml PO Q8 PRN #240 ml PRN Reason: Cough predniSONE [predniSONE Tab] 30 mg PO DAILY #30 tab Pantoprazole [Protonix EC Tab] 40 mg PO DAILY #30 ect - Follow Up Plan Condition: GUARDED Disposition: HOME/ ROUTINE Instructions: Alprazolam (By mouth), Prednisone (By mouth), Pantoprazole (By mouth), Promethazine/Codeine (By mouth), Roflumilast (By mouth), Heart Failure ( DC), COPD (Chronic Obstructive Pulmonary Disease) (DC) Additional Instructions: f/u with Dr. Garcia office in 1 week Continue medication as per Med. Rec. Referrals: Hal Garcia MD [Staff Provider] -
== END 2016-12-29 17:45 | disposition home or self-care (01) | DRG 191 ==
LOC: C.ER 23:42 → C.9E 12-26 02:00 → C.9I 12-26 02:58 → C.6T 12-26 18:26
PROVIDERS: ADMIT Internal Medicine; ATTEND Internal Medicine
PROC: 5A09457 Assistance with Respiratory Ventilation, 24-96 Consecutive Hours, Continuous Positive Airway Pressure (ICD-10-PCS; principal; 2016-12-26)
DX: J44.0 Chronic obstructive pulmonary disease with (acute) lower respiratory infection (principal); J96.10 Chronic respiratory failure, unspecified whether with hypoxia or hypercapnia; I13.0 Hypertensive heart and chronic kidney disease with heart failure and stage 1 through stage 4 chronic kidney disease, or unspecified chronic kidney disease; J45.901 Unspecified asthma with (acute) exacerbation; I50.9 Heart failure, unspecified; J20.9 Acute bronchitis, unspecified; E78.00 Pure hypercholesterolemia, unspecified; Z87.891 Personal history of nicotine dependence; E09.9 Drug or chemical induced diabetes mellitus without complications; N18.9 Chronic kidney disease, unspecified; G47.30 Sleep apnea, unspecified; T38.0X5A Adverse effect of glucocorticoids and synthetic analogues, initial encounter

== ENCOUNTER 2017-01-08 14:22 | Inpatient (IN) | payer MEDICARE, OTHER ==
[2017-01-08 14:22] VITALS: BMI 26.3
--- NOTE | 2017-01-08 14:34 | C.PDOC ---
History Of Present Illness 66-year-old male, presents to the Emergency Department, with complaints of a COPD exacerbation, that worsened today. Patient reports he has had numerous intubations and admissions in the past. Patient denies fever, chills, nausea, vomiting, chest pain, or palpitations. He is on 3L O2 05/03 at home. DC 12/29 Roflumilast [Daliresp] 500 mcg PO DAILY #30 tab Promethazine/Codeine [Phenergan/Codeine Oral Syrup] 5 ml PO Q8 PRN #240 ml PRN Reason: Cough predniSONE [Prednisone] 30 mg PO DAILY #30 tab Pantoprazole [Protonix EC Tab] 40 mg PO DAILY #30 ect Alprazolam [Xanax] 0.5 mg PO BID PRN #60 tablet Time Seen by Provider: 01/08/17 14:33 Chief Complaint (Nursing): Shortness Of Breath History Per: Patient, Family History/Exam Limitations: no limitations Onset/Duration Of Symptoms: Days Current Symptoms Are (Timing): Still Present Past Medical History Reviewed: Historical Data, Nursing Documentation, Vital Signs Vital Signs: Last Vital Signs Temp 97.8 F 01/08/17 14:26 Pulse 111 H 01/08/17 16:00 Resp 18 01/08/17 16:00 BP 118/68 01/08/17 16:00 Pulse Ox 94 L 01/08/17 16:02 - Medical History PMH: Anxiety, Arthritis (BACK; KNEES), Asthma, Bronchitis, CHF, COPD, Diabetes, Emphysema, Gastritis, HTN, Hypercholesterolemia, Pneumonia, Chronic Kidney Disease, Sleep Apnea - [facility] Procedures ASSISTANCE WITH RESPIRATORY VENTILATION, 24-96 HRS, CPAP (12/26/16) ASSISTANCE WITH RESPIRATORY VENTILATION, <24 HRS, CPAP (07/08/16) ASSISTANCE WITH RESPIRATORY VENTILATION, >96 HRS, CPAP (08/09/16) CONTINUOUS INVASIVE MECHANICAL VENTILATION <96 CONSEC HRS (11/29/14) INFLUENZA VACCINATION (06/02/14) INSERT ENDOTRACHEAL TUBE (11/29/14) LARYGNOSCOPY AND OTH TRACHEOSCOPY (04/18/15) MEASURE OF CARDIAC SAMPL & PRESSURE, L HEART, PERC APPROACH (12/01/15) NON-INVASIVE MECHANICAL VENTILATION (04/18/15) Family History: States: No Known Family Hx - Social History Hx Tobacco Use: Yes (8 years ppd smoker. quit 1.5 years ago) Hx Alcohol Use: No Hx Substance Use: No - Immunization History Hx Tetanus Toxoid Vaccination: Yes Hx Influenza Vaccination: Yes Hx Pneumococcal Vaccination: Yes Review Of Systems Except As Marked, All Systems Reviewed And Found Negative. Constitutional: Negative for: Fever, Chills Cardiovascular: Negative for: Chest Pain, Palpitations Respiratory: Positive for: Shortness of Breath, Wheezing Gastrointestinal: Negative for: Nausea, Vomiting Musculoskeletal: Negative for: Back Pain Physical Exam - Physical Exam Appears: Non-toxic, No Acute Distress, Other (Moderate respiratory distress. Speaking 3-4 word sentences.) Skin: Warm, Dry, No Rash Eye(s): bilateral: Normal Inspection, PERRL Oral Mucosa: Moist Lips: Normal Appearing Neck: Normal ROM Chest: Symmetrical Cardiovascular: Rhythm Regular, No Murmur Respiratory: No Accessory Muscle Use, Wheezing (mild, expiratory) Extremity: Normal ROM Neurological/Psych: Oriented x3 ED Course And Treatment - Laboratory Results Result Diagrams: 01/08/17 16:00 01/08/17 16:00 ECG: Interpreted By Me, Viewed By Me ECG Rhythm: Sinus Rhythm Rate From EC O2 Sat by Pulse Oximetry: 94 - Radiology CXR: Viewed By Me, Read By Radiologist CXR Interpretation: Yes: No Acute Disease Reevaluation Time: 16:31 Reassessment Condition: Unchanged - Physician Consult Information Time Consulting Physician Contacted: 16:31 Physician Contacted: Hal Garcia Medical Decision Making Medical Decision Making: PRIOR VISIRS NOTES AND RECORDS FROM PREVIOUS VISITS WERE REVIEWED. PATIENTS LAS ADMISSION ON 12/25, HE WAS DISCHARGED FROM HOSPITAL 12/29. Disposition Counseled Patient/Family Regarding: Studies Performed, Diagnosis - Disposition Disposition: HOSPITALIZED Disposition Time: 16:31 Condition: STABLE - POA Present On Arrival: None - Clinical Impression Clinical Impression: COPD exacerbation - Scribe Statement The provider has reviewed the documentation as recorded by the Scribilya Huang All medical record entries made by the Merryibilya were at my direction and personally dictated by me. I have reviewed the chart and agree that the record accurately reflects my personal performance of the history, physical exam, medical decision making, and the department course for this patient. I have also personally directed, reviewed, and agree with the discharge instructions and disposition. Decision To Admit - Pt Status Changed To: Hospital Disposition Of: Observation - . Bed Request Type: Telemetry Admitting Physician: Hal Garcia Patient Diagnosis: COPD exacerbation
[2017-01-08] MEDS ORDERED: MethylPREDNISolone 40 mg Vial IVP STA (14:58)
[2017-01-08] MEDS: Albuterol-Ipratrop 3 mg / 0.5 (3 ml) UD IH SCH ×3 (15:00→15:30)
[2017-01-08] MEDS ORDERED: MethylPREDNISolone 40 mg Vial ONE (15:04)
[2017-01-08] MEDS ORDERED: Albuterol-Ipratrop 3 mg / 0.5 (3 ml) UD ONE (15:12)
--- NOTE | 2017-01-08 15:56 | RAD ---
PROCEDURE: CHEST RADIOGRAPH, 1 VIEW. Portable study 15:10. HISTORY: SOB COMPARISON: 12/26/2016. FINDINGS: LUNGS: Clear. PLEURA: No pneumothorax or pleural fluid seen. CARDIOVASCULAR: No radiographic findings to suggest acute or significant cardiovascular disease. OSSEOUS STRUCTURES: No significant abnormalities. VISUALIZED UPPER ABDOMEN: Normal. OTHER FINDINGS: None. IMPRESSION: No active disease. No acute/significant interval changes. Concordant results with the preliminary interpretation rendered by the emergency department physician procedure.
[2017-01-08 16:06] LABS: BASO # 0.2 K/uL (0.0-0.2); EOS # 0.6 K/uL (0.0-0.7); EOS % 3.5 % (0.0-4.0); HEMATOCRIT 31.6 % (35.0-51.0); LYMPH # 1.4 K/uL (1.0-4.3); LYMPH % 8.4 % (20.0-40.0); MEAN CELL VOLUME 65.5 fL (80.0-94.0); MEAN CORPUSCULAR HEMOGLOBIN 20.2 pg (27.0-31.0); MEAN CORPUSCULAR HGB CONC 30.9 g/dL (33.0-37.0); MEAN PLATELET VOLUME 8.5 fL (7.2-11.7); MONO % 6.2 % (0.0-10.0); PLATELET COUNT 326 K/uL (130-400); WHITE BLOOD COUNT 16.3 K/uL (4.8-10.8)
[2017-01-08 16:21] LABS: CHLORIDE 95 mmol/L (98-107); POTASSIUM 3.8 mmol/L (3.6-5.2); SODIUM 137 mmol/L (132-148)
[2017-01-08 16:23] LABS: AST/SGOT 37 U/L (17-59); BILIRUBIN,TOTAL 0.6 mg/dL (0.2-1.3); CARBON DIOXIDE 28 mmol/L (22-30); GFR AFRICAN-AMERICAN > 60
[2017-01-08 16:24] LABS: ALB/GLOB RATIO 1.4 (1.0-2.1); ALKALINE PHOSPHATASE 137 U/L (38-126); ALT/SGPT 51 U/L (21-72); BLOOD UREA NITROGEN 7 mg/dL (9-20); CALCIUM 8.8 mg/dl (8.6-10.4); GLUCOSE,RANDOM 164 mg/dL (75-110); TOTAL PROTEIN 7.4 g/dL (6.3-8.3)
[2017-01-08] MEDS ORDERED: Promethazine/Cod 6.25mg-10mg/5ml Syr UD PO PRN (17:00)
[2017-01-08] MEDS ORDERED: ARFORMOTEROL IH SCH (18:00)
[2017-01-08 19:18] LABS: EOSINOPHIL 2 % (0-4); NEUTROPHIL 80 % (50-75); TOTAL CELLS COUNTED 100
[2017-01-08] MEDS: Albuterol-Ipratrop 3 mg / 0.5 (3 ml) UD INH SCH (20:53)
[2017-01-08] MEDS: Fluticasone-Salmeterol 250-50mcg Diskus INH SCH (20:55)
[2017-01-08] MEDS: Budesonide 0.5 mg/2 ml Inhal Susp UD INH SCH (20:55)
[2017-01-08] MEDS: (Lantus) Insulin Glargine, Recombinant SC SCH (21:26)
[2017-01-08] MEDS: (Novolog) Insulin Aspart, Recombinant 100 u/ml 10 ml vial SC SCH (21:26)
[2017-01-08] MEDS: MethylPREDNISolone 40 mg Vial IV SCH (21:31)
[2017-01-08] MEDS ORDERED: MethylPREDNISolone 40 mg Vial IM SCH (22:00)
--- NOTE | 2017-01-08 23:44 | CP.PCM.HP ---
Present on Admission - Present on Admission Any Indicators Present on Admission: No Past Patient History - Infectious Disease Hx of Infectious Diseases: None - Past Medical History & Family History Past Medical History?: Yes - Past Social History Smoking Status: Former Smoker - CARDIAC Hx Cardiac Disorders: Yes Hx Congestive Heart Failure: Yes Hx Hypercholesterolemia: Yes Hx Hypertension: Yes - PULMONARY Hx Respiratory Disorders: Yes Hx Asthma: Yes Hx Bronchitis: Yes Hx Chronic Obstructive Pulmonary Disease (COPD): Yes Hx Emphysema: Yes Hx Pneumonia: Yes Hx Sleep Apnea: Yes - NEUROLOGICAL Hx Neurological Disorder: No - HEENT Hx HEENT Problems: Yes Hx Cataracts: Yes (left cataract removed, r cataract) Other/Comment: wears eyeglasses for distance - RENAL Hx Chronic Kidney Disease: Yes - ENDOCRINE/METABOLIC Hx Endocrine Disorders: Yes Hx Diabetes Mellitus Type 2: Yes - HEMATOLOGICAL/ONCOLOGICAL Hx Blood Disorders: No - INTEGUMENTARY Hx Dermatological Problems: No - MUSCULOSKELETAL/RHEUMATOLOGICAL Hx Musculoskeletal Disorders: Yes Hx Arthritis: Yes (BACK; KNEES) Hx Falls: No - GASTROINTESTINAL Hx Gastrointestinal Disorders: Yes Hx Gastritis: Yes - GENITOURINARY/GYNECOLOGICAL Hx Genitourinary Disorders: No - PSYCHIATRIC Hx Psychophysiologic Disorder: Yes Hx Anxiety: Yes Hx Substance Use: No - SURGICAL HISTORY Hx Surgeries: Yes Hx Cardiac Catheterization: Yes (11/2015) - ANESTHESIA Hx Anesthesia: Yes Hx Anesthesia Reactions: Yes (pt dont know. aware) Hx Malignant Hyperthermia: No Meds Home Medications: Home Medication List Medication Instructions Recorded Confirmed Type Alprazolam [Xanax] 0.5 mg PO BID PRN #60 tablet 01/12/17 Rx Multivit,Iron,Min 5/Folic Acid 1 each PO DAILY #30 tablet 01/12/17 Rx [Strovite Forte Caplet] Allergies/Adverse Reactions: Allergies Allergy/AdvReac Type Severity Reaction Status Date / Time acetaminophen [From Tylenol] Allergy RASH Verified 12/25/16 23:46 FISH Allergy SWELLING Verified 12/25/16 23:46 shrimp Allergy SHORTNESS Verified 12/25/16 23:46 OF BREATH Results - Vital Signs Recent Vital Signs: Last Vital Signs Temp 98.2 F 01/08/17 22:00 Pulse 88 01/08/17 22:00 Resp 18 01/08/17 22:00 BP 171/75 H 01/08/17 22:00 Pulse Ox 96 01/08/17 22:00 - Labs Result Diagrams: 01/08/17 16:00 01/08/17 16:00 Labs: Laboratory Results - last 24 hr 01/08/17 01/08/17 19:05 21:11 POC Glucose (mg/dL) 249 H 335 H
[2017-01-09] MEDS: Albuterol-Ipratrop 3 mg / 0.5 (3 ml) UD INH SCH ×4 (01:26→19:12)
[2017-01-09] MEDS: Budesonide 0.5 mg/2 ml Inhal Susp UD INH SCH ×2 (08:32→19:11)
[2017-01-09] MEDS: Fluticasone-Salmeterol 250-50mcg Diskus INH SCH ×2 (08:33→19:11)
[2017-01-09] MEDS: (Novolog) Insulin Aspart, Recombinant 100 u/ml 10 ml vial SC SCH ×3 (09:54→21:52)
[2017-01-09] MEDS: Pantoprazole 40 mg EC Tab PO SCH (09:55)
[2017-01-09] MEDS: MethylPREDNISolone 40 mg Vial IV SCH ×2 (09:56→21:56)
[2017-01-09] MEDS: Enoxaparin 40 mg Syringe SC SCH (09:58)
--- NOTE | 2017-01-09 17:00 | CP.PCM.CON ---
History of Present Illness - History of Present Illness History of Present Illness: Reason for consultation: Shortness of breath 66-year-old male with COPD, chronic respiratory failure, anxiety, gastritis, sleep apnea who presented to emergency room complaining of worsening shortness of breath. Patient recently discharged from hospital treated for COPD exacerbation. Patient also complaining of chest tightness. Patient states that he used several nebulizer treatments without any relief at home Review of Systems - Review of Systems All systems: reviewed and no additional remarkable complaints except (Shortness of breath and cough) Past Patient History - Infectious Disease Hx of Infectious Diseases: None - Past Medical History & Family History Past Medical History?: Yes - Past Social History Smoking Status: Former Smoker - CARDIAC Hx Cardiac Disorders: Yes Hx Congestive Heart Failure: Yes Hx Hypercholesterolemia: Yes Hx Hypertension: Yes - PULMONARY Hx Respiratory Disorders: Yes Hx Asthma: Yes Hx Bronchitis: Yes Hx Chronic Obstructive Pulmonary Disease (COPD): Yes Hx Emphysema: Yes Hx Pneumonia: Yes Hx Sleep Apnea: Yes - NEUROLOGICAL Hx Neurological Disorder: No - HEENT Hx HEENT Problems: Yes Hx Cataracts: Yes (left cataract removed, r cataract) Other/Comment: wears eyeglasses for distance - RENAL Hx Chronic Kidney Disease: Yes - ENDOCRINE/METABOLIC Hx Endocrine Disorders: Yes Hx Diabetes Mellitus Type 2: Yes - HEMATOLOGICAL/ONCOLOGICAL Hx Blood Disorders: No - INTEGUMENTARY Hx Dermatological Problems: No - MUSCULOSKELETAL/RHEUMATOLOGICAL Hx Musculoskeletal Disorders: Yes Hx Arthritis: Yes (BACK; KNEES) Hx Falls: No - GASTROINTESTINAL Hx Gastrointestinal Disorders: Yes Hx Gastritis: Yes - GENITOURINARY/GYNECOLOGICAL Hx Genitourinary Disorders: No - PSYCHIATRIC Hx Psychophysiologic Disorder: Yes Hx Anxiety: Yes Hx Substance Use: No - SURGICAL HISTORY Hx Surgeries: Yes Hx Cardiac Catheterization: Yes (11/2015) - ANESTHESIA Hx Anesthesia: Yes Hx Anesthesia Reactions: Yes (pt dont know. aware) Hx Malignant Hyperthermia: No Meds Allergies/Adverse Reactions: Allergies Allergy/AdvReac Type Severity Reaction Status Date / Time acetaminophen [From Tylenol] Allergy RASH Verified 12/25/16 23:46 FISH Allergy SWELLING Verified 12/25/16 23:46 shrimp Allergy SHORTNESS Verified 12/25/16 23:46 OF BREATH - Medications Medications: Current Medications Albuterol/Ipratropium (Duoneb 3 Mg/0.5 Mg (3 Ml) Ud) 3 ml INH RQ6 [facility] Last Admin: 01/09/17 13:20 Dose: 3 ml Alprazolam (Xanax) 0.5 mg PO BID PRN PRN Reason: Anxiety Stop: 01/15/17 17:01 Last Admin: 01/08/17 21:25 Dose: 0.5 mg Budesonide (Pulmicort Respules) 0.5 mg INH RBID [facility] Last Admin: 01/09/17 08:32 Dose: 0.5 mg Enoxaparin Sodium (Lovenox) 40 mg SC DAILY [facility] Last Admin: 01/09/17 09:58 Dose: 40 mg Ferrous Sulfate (Feosol) 325 mg PO BID [facility] Last Admin: 01/09/17 09:55 Dose: 325 mg Home Med (Arformoterol Tartrate [Brovana]) 1 mauricio IH BID [facility] Insulin Aspart (Novolog) 0 unit SC ACHS [facility] PRN Reason: Protocol Last Admin: 01/09/17 09:54 Dose: 3 unit Insulin Glargine (Lantus) 16 unit SC [facility] Last Admin: 01/08/17 21:26 Dose: 16 u Metformin HCl (Glucophage) 1,000 mg PO BIDCC [facility] Last Admin: 01/09/17 08:48 Dose: 1,000 mg Methylprednisolone (Solu-Medrol) 40 mg IV Q12 [facility] Last Admin: 01/09/17 09:56 Dose: 40 mg Montelukast Sodium (Singulair) 10 mg PO HS [facility] Last Admin: 01/08/17 21:23 Dose: 10 mg Pantoprazole Sodium (Protonix Ec Tab) 40 mg PO DAILY [facility] Last Admin: 01/09/17 09:55 Dose: 40 mg Promethazine HCl/Codeine (Phenergan/Codeine Oral Syrup) 5 ml PO Q8 PRN PRN Reason: Cough Last Admin: 01/08/17 21:35 Dose: 5 ml Roflumilast (Daliresp) 500 mcg PO DAILY [facility] Last Admin: 01/09/17 09:55 Dose: 500 mcg Rosuvastatin Calcium (Crestor) 10 mg PO HS [facility] Last Admin: 01/08/17 21:23 Dose: 10 mg Fluticasone/Salmeterol (Advair Diskus 250/50) 1 puff INH RBID [facility] Last Admin: 01/09/17 08:33 Dose: 1 puff Physical Exam - Constitutional Appears: No Acute Distress - Head Exam Head Exam: ATRAUMATIC, NORMOCEPHALIC - Eye Exam Eye Exam: Normal appearance - ENT Exam ENT Exam: Mucous Membranes Moist - Neck Exam Neck exam: Positive for: Normal Inspection - Respiratory Exam Respiratory Exam: Decreased Breath Sounds - Cardiovascular Exam Cardiovascular Exam: REGULAR RHYTHM - GI/Abdominal Exam GI & Abdominal Exam: Normal Bowel Sounds, Soft Results - Vital Signs Recent Vital Signs: Last Vital Signs Temp 98 F 01/09/17 15:35 Pulse 116 H 01/09/17 15:35 Resp 20 01/09/17 15:35 BP 105/71 01/09/17 15:35 Pulse Ox 98 01/09/17 15:35 - Labs Result Diagrams: 01/08/17 16:00 01/08/17 16:00 Labs: Laboratory Results - last 24 hr 01/08/17 01/08/17 01/09/17 19:05 21:11 04:26 POC Glucose (mg/dL) 249 H 335 H 227 H 01/09/17 01/09/17 01/09/17 06:39 11:38 16:11 POC Glucose (mg/dL) 223 H 137 H 233 H Assessment & Plan (1) COPD exacerbation Status: Acute Priority: Medium Comment: Continue IV steroids, nebulizer treatment and current medications. BiPAP as needed. Antitussive for cough
[2017-01-09] MEDS: (Lantus) Insulin Glargine, Recombinant SC SCH (21:51)
--- NOTE | 2017-01-09 22:53 | CP.PCM.PN ---
Subjective - Date & Time of Evaluation Date of Evaluation: 01/09/17 Time of Evaluation: 07:42 - Subjective Subjective: Pt is coughing , wheezing, dyspnea at rest and on extertion, on nebulizer , salmetrol, sliding scale, tapering steroid Objective - Vital Signs/Intake and Output Vital Signs (last 24 hours): Temp Pulse Resp BP Pulse Ox 98 F 118 H 20 105/71 98 01/09/17 15:35 01/09/17 19:13 01/09/17 15:35 01/09/17 15:35 01/09/17 15:35 - Medications Medications: Current Medications Albuterol/Ipratropium (Duoneb 3 Mg/0.5 Mg (3 Ml) Ud) 3 ml INH RQ6 [facility] Last Admin: 01/09/17 19:12 Dose: 3 ml Alprazolam (Xanax) 0.5 mg PO BID PRN PRN Reason: Anxiety Stop: 01/15/17 17:01 Last Admin: 01/08/17 21:25 Dose: 0.5 mg Budesonide (Pulmicort Respules) 0.5 mg INH RBID [facility] Last Admin: 01/09/17 19:11 Dose: 0.5 mg Enoxaparin Sodium (Lovenox) 40 mg SC DAILY [facility] Last Admin: 01/09/17 09:58 Dose: 40 mg Ferrous Sulfate (Feosol) 325 mg PO BID [facility] Last Admin: 01/09/17 17:40 Dose: 325 mg Guaifenesin/Codeine Phosphate (Guaifenesin/Codeine) 10 ml PO Q6 [facility] Home Med (Arformoterol Tartrate [Brovana]) 1 mauricio IH BID [facility] Insulin Aspart (Novolog) 0 unit SC ACHS [facility] PRN Reason: Protocol Last Admin: 01/09/17 21:52 Dose: Not Given Insulin Glargine (Lantus) 16 unit SC [facility] Last Admin: 01/09/17 21:51 Dose: 16 u Metformin HCl (Glucophage) 1,000 mg PO BIDCC [facility] Last Admin: 01/09/17 17:01 Dose: 1,000 mg Methylprednisolone (Solu-Medrol) 40 mg IV Q12 [facility] Last Admin: 01/09/17 21:56 Dose: 40 mg Montelukast Sodium (Singulair) 10 mg PO [facility] Last Admin: 01/09/17 21:50 Dose: 10 mg Pantoprazole Sodium (Protonix Ec Tab) 40 mg PO DAILY [facility] Last Admin: 01/09/17 09:55 Dose: 40 mg Roflumilast (Daliresp) 500 mcg PO DAILY [facility] Last Admin: 01/09/17 09:55 Dose: 500 mcg Rosuvastatin Calcium (Crestor) 10 mg PO [facility] Last Admin: 01/09/17 21:50 Dose: 10 mg Fluticasone/Salmeterol (Advair Diskus 250/50) 1 puff INH RBID [facility] Last Admin: 01/09/17 19:11 Dose: 1 puff - Constitutional Appears: No Acute Distress, Chronically Ill - Head Exam Head Exam: ATRAUMATIC, NORMAL INSPECTION, NORMOCEPHALIC - Eye Exam Eye Exam: PERRL Pupil Exam: NORMAL ACCOMODATION - ENT Exam ENT Exam: Mucous Membranes Moist - Respiratory Exam Respiratory Exam: Rhonchi, Wheezes - Cardiovascular Exam Cardiovascular Exam: REGULAR RHYTHM, +S1, +S2 - GI/Abdominal Exam GI & Abdominal Exam: Soft, Normal Bowel Sounds. absent: Tenderness Assessment and Plan (1) Acute bronchitis with asthma with acute exacerbation Status: Acute (2) Acute exacerbation of chronic obstructive pulmonary disease (COPD) Status: Acute (3) Respiratory tract infection Status: Acute (4) Allergic rhinitis Status: Chronic (5) Steroid-induced diabetes Status: Chronic
[2017-01-10] MEDS: Albuterol-Ipratrop 3 mg / 0.5 (3 ml) UD INH SCH ×4 (01:02→19:29)
[2017-01-10] MEDS: guaiFENesin-Codeine 100-10mg/5ml Syrup (10ml) UD PO SCH ×4 (01:13→17:28)
--- NOTE | 2017-01-10 01:55 | CARD ---
APPROVED REPORT EKG Measurement Heart [id number] <Conclusion> Sinus tachycardia Otherwise normal ECG
[2017-01-10] MEDS: Budesonide 0.5 mg/2 ml Inhal Susp UD INH SCH ×2 (07:28→19:29)
[2017-01-10] MEDS: Fluticasone-Salmeterol 250-50mcg Diskus INH SCH ×2 (08:28→19:29)
[2017-01-10] MEDS: (Novolog) Insulin Aspart, Recombinant 100 u/ml 10 ml vial SC SCH ×4 (09:00→22:06)
[2017-01-10] MEDS: Enoxaparin 40 mg Syringe SC SCH (11:02)
[2017-01-10] MEDS: MethylPREDNISolone 40 mg Vial IV SCH ×2 (11:03→22:05)
[2017-01-10] MEDS: Pantoprazole 40 mg EC Tab PO SCH (11:03)
--- NOTE | 2017-01-10 17:04 | CP.PCM.PN ---
Subjective - Date & Time of Evaluation Date of Evaluation: 01/10/17 Time of Evaluation: 10:50 - Subjective Subjective: Patient seen and examined. Subjective complaining of dyspnea on minimal exertion and feels chest tightness Cough, denies fever or chills Objective - Vital Signs/Intake and Output Vital Signs (last 24 hours): Temp Pulse Resp BP Pulse Ox 97.4 F L 90 20 118/78 100 01/10/17 07:00 01/10/17 09:44 01/10/17 07:00 01/10/17 07:00 01/10/17 07:00 - Medications Medications: Current Medications Albuterol/Ipratropium (Duoneb 3 Mg/0.5 Mg (3 Ml) Ud) 3 ml INH RQ6 [facility] Last Admin: 01/10/17 13:19 Dose: 3 ml Alprazolam (Xanax) 0.5 mg PO BID PRN PRN Reason: Anxiety Stop: 01/15/17 17:01 Last Admin: 01/10/17 11:03 Dose: 0.5 mg Budesonide (Pulmicort Respules) 0.5 mg INH RBID [facility] Last Admin: 01/10/17 07:28 Dose: 0.5 mg Enoxaparin Sodium (Lovenox) 40 mg SC DAILY [facility] Last Admin: 01/10/17 11:02 Dose: 40 mg Ferrous Sulfate (Feosol) 325 mg PO BID [facility] Last Admin: 01/10/17 11:03 Dose: 325 mg Guaifenesin/Codeine Phosphate (Guaifenesin/Codeine) 10 ml PO Q6 [facility] Last Admin: 01/10/17 11:06 Dose: 10 ml Insulin Aspart (Novolog) 0 unit SC ACHS [facility] PRN Reason: Protocol Last Admin: 01/10/17 11:30 Dose: Not Given Insulin Glargine (Lantus) 16 unit SC HS [facility] Last Admin: 01/09/17 21:51 Dose: 16 u Metformin HCl (Glucophage) 1,000 mg PO BIDCC [facility] Last Admin: 01/10/17 08:17 Dose: 1,000 mg Methylprednisolone (Solu-Medrol) 40 mg IV Q12 [facility] Last Admin: 01/10/17 11:03 Dose: 40 mg Montelukast Sodium (Singulair) 10 mg PO [facility] Last Admin: 01/09/17 21:50 Dose: 10 mg Pantoprazole Sodium (Protonix Ec Tab) 40 mg PO DAILY [facility] Last Admin: 01/10/17 11:03 Dose: 40 mg Roflumilast (Daliresp) 500 mcg PO DAILY [facility] Last Admin: 01/10/17 11:09 Dose: 500 mcg Rosuvastatin Calcium (Crestor) 10 mg PO HS [facility] Last Admin: 01/09/17 21:50 Dose: 10 mg Fluticasone/Salmeterol (Advair Diskus 250/50) 1 puff INH RBID [facility] Last Admin: 01/10/17 08:28 Dose: Not Given - Head Exam Head Exam: ATRAUMATIC, NORMOCEPHALIC - Eye Exam Pupil Exam: PERRL - ENT Exam ENT Exam: Mucous Membranes Moist - Neck Exam Neck Exam: Normal Inspection - Respiratory Exam Respiratory Exam: Decreased Breath Sounds - Cardiovascular Exam Cardiovascular Exam: REGULAR RHYTHM Assessment and Plan (1) COPD exacerbation Assessment & Plan: Continue nebulizer treatment and switch to by mouth prednisone Continue present treatment and BiPAP as needed. Status: Acute
[2017-01-10] MEDS: (Lantus) Insulin Glargine, Recombinant SC SCH (22:05)
[2017-01-11] MEDS: guaiFENesin-Codeine 100-10mg/5ml Syrup (10ml) UD PO SCH ×3 (00:19→17:05)
[2017-01-11] MEDS: Albuterol-Ipratrop 3 mg / 0.5 (3 ml) UD INH SCH ×4 (01:53→20:52)
[2017-01-11] MEDS: Budesonide 0.5 mg/2 ml Inhal Susp UD INH SCH ×2 (07:22→20:52)
[2017-01-11] MEDS: Fluticasone-Salmeterol 250-50mcg Diskus INH SCH ×2 (07:22→20:52)
[2017-01-11] MEDS: (Novolog) Insulin Aspart, Recombinant 100 u/ml 10 ml vial SC SCH ×4 (08:31→21:59)
[2017-01-11] MEDS: Pantoprazole 40 mg EC Tab PO SCH (10:58)
[2017-01-11] MEDS: MethylPREDNISolone 40 mg Vial IV SCH ×2 (10:58→21:48)
[2017-01-11] MEDS: Enoxaparin 40 mg Syringe SC SCH (10:59)
--- NOTE | 2017-01-11 11:52 | CP.PCM.PN ---
Subjective - Date & Time of Evaluation Date of Evaluation: 01/11/17 Time of Evaluation: 09:30 - Subjective Subjective: Patient seen and examined. Sitting comfortably in no acute distress Off BiPAP Continue present treatment and stable from pulmonary standpoint Objective - Vital Signs/Intake and Output Vital Signs (last 24 hours): Temp Pulse Resp BP Pulse Ox 97.4 F L 94 H 19 117/69 100 01/11/17 08:00 01/11/17 08:00 01/11/17 08:00 01/11/17 08:00 01/11/17 08:00 - Medications Medications: Current Medications Albuterol/Ipratropium (Duoneb 3 Mg/0.5 Mg (3 Ml) Ud) 3 ml INH RQ6 [facility] Last Admin: 01/11/17 07:22 Dose: 3 ml Alprazolam (Xanax) 0.5 mg PO BID PRN PRN Reason: Anxiety Stop: 01/15/17 17:01 Last Admin: 01/11/17 11:01 Dose: 0.5 mg Budesonide (Pulmicort Respules) 0.5 mg INH RBID [facility] Last Admin: 01/11/17 07:22 Dose: 0.5 mg Enoxaparin Sodium (Lovenox) 40 mg SC DAILY [facility] Last Admin: 01/11/17 10:59 Dose: 40 mg Ferrous Sulfate (Feosol) 325 mg PO BID [facility] Last Admin: 01/11/17 10:58 Dose: 325 mg Guaifenesin/Codeine Phosphate (Guaifenesin/Codeine) 10 ml PO Q6 [facility] Last Admin: 01/11/17 11:01 Dose: 10 ml Insulin Aspart (Novolog) 0 unit SC ACHS [facility] PRN Reason: Protocol Last Admin: 01/11/17 08:31 Dose: 4 unit Insulin Glargine (Lantus) 16 unit SC HS [facility] Last Admin: 01/10/17 22:05 Dose: 16 u Metformin HCl (Glucophage) 1,000 mg PO BIDCC [facility] Last Admin: 01/11/17 08:31 Dose: 1,000 mg Methylprednisolone (Solu-Medrol) 40 mg IV Q12 [facility] Last Admin: 01/11/17 10:58 Dose: 40 mg Montelukast Sodium (Singulair) 10 mg PO HS [facility] Last Admin: 01/10/17 22:05 Dose: 10 mg Pantoprazole Sodium (Protonix Ec Tab) 40 mg PO DAILY [facility] Last Admin: 01/11/17 10:58 Dose: 40 mg Roflumilast (Daliresp) 500 mcg PO DAILY [facility] Last Admin: 01/11/17 10:57 Dose: 500 mcg Rosuvastatin Calcium (Crestor) 10 mg PO HS [facility] Last Admin: 01/10/17 22:05 Dose: 10 mg Fluticasone/Salmeterol (Advair Diskus 250/50) 1 puff INH RBID [facility] Last Admin: 01/11/17 07:22 Dose: Not Given Assessment and Plan (1) COPD exacerbation Status: Acute
--- NOTE | 2017-01-11 14:06 | CP.PCM.PN ---
Subjective - Date & Time of Evaluation Date of Evaluation: 01/10/17 Time of Evaluation: 20:40 - Subjective Subjective: pt seen and examined, is improving, still coughing, wheezing continue on current treatment Objective - Vital Signs/Intake and Output Vital Signs (last 24 hours): Temp Pulse Resp BP Pulse Ox 97.4 F L 94 H 19 117/69 100 01/11/17 08:00 01/11/17 08:00 01/11/17 08:00 01/11/17 08:00 01/11/17 08:00 - Medications Medications: Current Medications Albuterol/Ipratropium (Duoneb 3 Mg/0.5 Mg (3 Ml) Ud) 3 ml INH RQ6 [facility] Last Admin: 01/11/17 13:07 Dose: 3 ml Alprazolam (Xanax) 0.5 mg PO BID PRN PRN Reason: Anxiety Stop: 01/15/17 17:01 Last Admin: 01/11/17 11:01 Dose: 0.5 mg Budesonide (Pulmicort Respules) 0.5 mg INH RBID [facility] Last Admin: 01/11/17 07:22 Dose: 0.5 mg Enoxaparin Sodium (Lovenox) 40 mg SC DAILY [facility] Last Admin: 01/11/17 10:59 Dose: 40 mg Ferrous Sulfate (Feosol) 325 mg PO BID [facility] Last Admin: 01/11/17 10:58 Dose: 325 mg Guaifenesin/Codeine Phosphate (Guaifenesin/Codeine) 10 ml PO Q6 [facility] Last Admin: 01/11/17 11:01 Dose: 10 ml Insulin Aspart (Novolog) 0 unit SC [facility] PRN Reason: Protocol Last Admin: 01/11/17 11:55 Dose: Not Given Insulin Glargine (Lantus) 16 unit SC [facility] Last Admin: 01/10/17 22:05 Dose: 16 u Metformin HCl (Glucophage) 1,000 mg PO BIDCC [facility] Last Admin: 01/11/17 08:31 Dose: 1,000 mg Methylprednisolone (Solu-Medrol) 40 mg IV Q12 [facility] Last Admin: 01/11/17 10:58 Dose: 40 mg Montelukast Sodium (Singulair) 10 mg PO [facility] Last Admin: 01/10/17 22:05 Dose: 10 mg Pantoprazole Sodium (Protonix Ec Tab) 40 mg PO DAILY [facility] Last Admin: 01/11/17 10:58 Dose: 40 mg Roflumilast (Daliresp) 500 mcg PO DAILY [facility] Last Admin: 01/11/17 10:57 Dose: 500 mcg Rosuvastatin Calcium (Crestor) 10 mg PO HS [facility] Last Admin: 01/10/17 22:05 Dose: 10 mg Fluticasone/Salmeterol (Advair Diskus 250/50) 1 puff INH RBID [facility] Last Admin: 01/11/17 07:22 Dose: Not Given - Constitutional Appears: No Acute Distress - Head Exam Head Exam: ATRAUMATIC, NORMAL INSPECTION, NORMOCEPHALIC - Eye Exam Eye Exam: EOMI, Normal appearance, PERRL Pupil Exam: NORMAL ACCOMODATION, PERRL - ENT Exam ENT Exam: Mucous Membranes Moist - Neck Exam Neck Exam: Full ROM, Normal Inspection. absent: Lymphadenopathy - Respiratory Exam Respiratory Exam: Rales, Rhonchi - Cardiovascular Exam Cardiovascular Exam: REGULAR RHYTHM, +S1, +S2. absent: Murmur - GI/Abdominal Exam GI & Abdominal Exam: Soft, Normal Bowel Sounds. absent: Tenderness Assessment and Plan (1) Acute bronchitis with asthma with acute exacerbation Status: Acute (2) Acute exacerbation of chronic obstructive pulmonary disease (COPD) Status: Acute (3) Respiratory tract infection Status: Acute (4) Allergic rhinitis Status: Chronic (5) Steroid-induced diabetes Status: Chronic
[2017-01-11] MEDS: (Lantus) Insulin Glargine, Recombinant SC SCH (21:49)
--- NOTE | 2017-01-11 23:12 | CP.PCM.PN ---
Subjective - Date & Time of Evaluation Date of Evaluation: 01/11/17 Time of Evaluation: 21:40 - Subjective Subjective: PT IS IMPROVING Objective - Vital Signs/Intake and Output Vital Signs (last 24 hours): Temp Pulse Resp BP Pulse Ox 98.0 F 112 H 20 128/73 97 01/11/17 15:34 01/11/17 21:57 01/11/17 15:34 01/11/17 21:57 01/11/17 15:34 Intake and Output: 01/11/17 01/12/17 18:59 06:59 Intake Total 510 Balance 510 - Medications Medications: Current Medications Albuterol/Ipratropium (Duoneb 3 Mg/0.5 Mg (3 Ml) Ud) 3 ml INH RQ6 [facility] Last Admin: 01/11/17 20:52 Dose: 3 ml Alprazolam (Xanax) 0.5 mg PO BID PRN PRN Reason: Anxiety Stop: 01/15/17 17:01 Last Admin: 01/11/17 11:01 Dose: 0.5 mg Budesonide (Pulmicort Respules) 0.5 mg INH RBID [facility] Last Admin: 01/11/17 20:52 Dose: 0.5 mg Enoxaparin Sodium (Lovenox) 40 mg SC DAILY [facility] Last Admin: 01/11/17 10:59 Dose: 40 mg Ferrous Sulfate (Feosol) 325 mg PO BID [facility] Last Admin: 01/11/17 17:05 Dose: 325 mg Guaifenesin/Codeine Phosphate (Guaifenesin/Codeine) 10 ml PO Q6 [facility] Last Admin: 01/11/17 17:05 Dose: 10 ml Insulin Aspart (Novolog) 0 unit SC ACHS [facility] PRN Reason: Protocol Last Admin: 01/11/17 21:59 Dose: Not Given Insulin Glargine (Lantus) 16 unit SC HS [facility] Last Admin: 01/11/17 21:49 Dose: 16 units Metformin HCl (Glucophage) 1,000 mg PO BIDCC [facility] Last Admin: 01/11/17 17:05 Dose: 1,000 mg Methylprednisolone (Solu-Medrol) 40 mg IV Q12 [facility] Last Admin: 01/11/17 21:48 Dose: 40 mg Montelukast Sodium (Singulair) 10 mg PO HS [facility] Last Admin: 01/11/17 21:49 Dose: 10 mg Pantoprazole Sodium (Protonix Ec Tab) 40 mg PO DAILY [facility] Last Admin: 01/11/17 10:58 Dose: 40 mg Roflumilast (Daliresp) 500 mcg PO DAILY [facility] Last Admin: 01/11/17 10:57 Dose: 500 mcg Rosuvastatin Calcium (Crestor) 10 mg PO HS [facility] Last Admin: 01/11/17 21:49 Dose: 10 mg Fluticasone/Salmeterol (Advair Diskus 250/50) 1 puff INH RBID [facility] Last Admin: 01/11/17 20:52 Dose: 1 puff - Constitutional Appears: No Acute Distress - Head Exam Head Exam: ATRAUMATIC, NORMAL INSPECTION, NORMOCEPHALIC - Eye Exam Eye Exam: EOMI, Normal appearance, PERRL Pupil Exam: NORMAL ACCOMODATION, PERRL - ENT Exam ENT Exam: Mucous Membranes Moist, Normal Exam - Respiratory Exam Respiratory Exam: Rhonchi, Wheezes - Cardiovascular Exam Cardiovascular Exam: REGULAR RHYTHM, +S1, +S2. absent: Murmur Assessment and Plan (1) Acute bronchitis with asthma with acute exacerbation Status: Acute (2) COPD (chronic obstructive pulmonary disease) Status: Acute (3) Allergic rhinitis Status: Chronic (4) Anxiety Status: Chronic (5) Steroid-induced diabetes Status: Chronic
[2017-01-12] MEDS: guaiFENesin-Codeine 100-10mg/5ml Syrup (10ml) UD PO SCH ×2 (00:25→12:57)
[2017-01-12] MEDS: Albuterol-Ipratrop 3 mg / 0.5 (3 ml) UD INH SCH ×2 (01:07→08:22)
[2017-01-12 08:06] VITALS: BP 143/89; PULSE 107; RESP 20; TEMP 97.5; O2SAT 96
[2017-01-12] MEDS: Budesonide 0.5 mg/2 ml Inhal Susp UD INH SCH (08:22)
[2017-01-12] MEDS: Fluticasone-Salmeterol 250-50mcg Diskus INH SCH (08:22)
[2017-01-12] MEDS: (Novolog) Insulin Aspart, Recombinant 100 u/ml 10 ml vial SC SCH ×2 (09:14→12:45)
[2017-01-12] MEDS: MethylPREDNISolone 40 mg Vial IV SCH (09:44)
[2017-01-12] MEDS: Enoxaparin 40 mg Syringe SC SCH (09:45)
[2017-01-12] MEDS: Pantoprazole 40 mg EC Tab PO SCH (09:45)
--- NOTE | 2017-01-12 11:33 | CP.PCM.PN ---
Subjective - Date & Time of Evaluation Date of Evaluation: 01/12/17 Time of Evaluation: 09:45 - Subjective Subjective: Pt seen and examined today states sob and congestion improved, denies any chest pain, palpitations, dizziness oob ambulates without sob no overnight events reported by RN Objective - Vital Signs/Intake and Output Vital Signs (last 24 hours): Temp Pulse Resp BP Pulse Ox 97.5 F L 107 H 20 143/89 96 01/12/17 08:00 01/12/17 08:00 01/12/17 08:00 01/12/17 08:00 01/12/17 08:00 - Medications Medications: Current Medications Albuterol/Ipratropium (Duoneb 3 Mg/0.5 Mg (3 Ml) Ud) 3 ml INH RQ6 [facility] Last Admin: 01/12/17 08:22 Dose: 3 ml Alprazolam (Xanax) 0.5 mg PO BID PRN PRN Reason: Anxiety Stop: 01/15/17 17:01 Last Admin: 01/12/17 09:50 Dose: 0.5 mg Budesonide (Pulmicort Respules) 0.5 mg INH RBID [facility] Last Admin: 01/12/17 08:22 Dose: 0.5 mg Enoxaparin Sodium (Lovenox) 40 mg SC DAILY [facility] Last Admin: 01/12/17 09:45 Dose: 40 mg Ferrous Sulfate (Feosol) 325 mg PO BID [facility] Last Admin: 01/12/17 09:44 Dose: 325 mg Guaifenesin/Codeine Phosphate (Guaifenesin/Codeine) 10 ml PO Q6 [facility] Last Admin: 01/12/17 00:25 Dose: 10 ml Insulin Aspart (Novolog) 0 unit SC ACHS [facility] PRN Reason: Protocol Last Admin: 01/12/17 09:14 Dose: 3 unit Insulin Glargine (Lantus) 16 unit SC HS [facility] Last Admin: 01/11/17 21:49 Dose: 16 units Metformin HCl (Glucophage) 1,000 mg PO BIDCC [facility] Last Admin: 01/12/17 09:14 Dose: 1,000 mg Methylprednisolone (Solu-Medrol) 40 mg IV Q12 [facility] Last Admin: 01/12/17 09:44 Dose: 40 mg Montelukast Sodium (Singulair) 10 mg PO [facility] Last Admin: 01/11/17 21:49 Dose: 10 mg Pantoprazole Sodium (Protonix Ec Tab) 40 mg PO DAILY [facility] Last Admin: 01/12/17 09:45 Dose: 40 mg Roflumilast (Daliresp) 500 mcg PO DAILY [facility] Last Admin: 01/12/17 09:44 Dose: 500 mcg Rosuvastatin Calcium (Crestor) 10 mg PO HS [facility] Last Admin: 01/11/17 21:49 Dose: 10 mg Fluticasone/Salmeterol (Advair Diskus 250/50) 1 puff INH RBID [facility] Last Admin: 01/12/17 08:22 Dose: Not Given - Constitutional Appears: Well, No Acute Distress - Respiratory Exam Respiratory Exam: Decreased Breath Sounds, NORMAL BREATHING PATTERN - Cardiovascular Exam Cardiovascular Exam: REGULAR RHYTHM Assessment and Plan - Assessment and Plan (Free Text) Assessment: A/P 66 yr old male admitted for exacerbation of COPD Pt treated with solumedrol and clinically improved seen by Dr. Nuno, cleared for discharge from pulmonary standpoint and f/u with Dr. Nuno office in 1 -2 week Discharge plan discussed with patient , who understands and agrees with plan Pt instructed to returns to ED if symptoms returns or get worse
--- NOTE | 2017-01-13 00:26 | CP.PCM.DIS ---
Provider - Provider Date of Admission: 01/10/17 16:36 Attending physician: Hal Garcia MD Time Spent in preparation of Discharge (in minutes): 45 Diagnosis - Discharge Diagnosis (1) Acute bronchitis with asthma with acute exacerbation Status: Acute (2) COPD (chronic obstructive pulmonary disease) Status: Acute (3) Allergic rhinitis Status: Chronic Priority: Medium (4) Anxiety Status: Chronic (5) Steroid-induced diabetes Status: Chronic Hospital Course - Lab Results Lab Results: Most Recent Lab Values WBC 16.3 K/uL (4.8-10.8) H 01/08/17 16:00 RBC 4.83 Mil/uL (4.40-5.90) 01/08/17 16:00 Hgb 9.8 g/dL (12.0-18.0) L 01/08/17 16:00 Hct 31.6 % (35.0-51.0) L 01/08/17 16:00 MCV 65.5 fL (80.0-94.0) L 01/08/17 16:00 MCH 20.2 pg (27.0-31.0) L 01/08/17 16:00 MCHC 30.9 g/dL (33.0-37.0) L 01/08/17 16:00 RDW 18.0 % (11.5-14.5) H 01/08/17 16:00 Plt Count 326 K/uL (130-400) 01/08/17 16:00 MPV 8.5 fL (7.2-11.7) 01/08/17 16:00 Neut % (Auto) 80.9 % (50.0-75.0) H 01/08/17 16:00 Lymph % (Auto) 8.4 % (20.0-40.0) L 01/08/17 16:00 [place] % (Auto) 6.2 % (0.0-10.0) 01/08/17 16:00 Eos % (Auto) 3.5 % (0.0-4.0) 01/08/17 16:00 Baso % (Auto) 1.0 % (0.0-2.0) 01/08/17 16:00 Neut # 13.2 K/uL (1.8-7.0) H 01/08/17 16:00 Lymph # 1.4 K/uL (1.0-4.3) 01/08/17 16:00 [place] # 1.0 K/uL (0.0-0.8) H 01/08/17 16:00 Eos # 0.6 K/uL (0.0-0.7) 01/08/17 16:00 Baso # 0.2 K/uL (0.0-0.2) 01/08/17 16:00 Neutrophils % (Manual) 80 % (50-75) H 01/08/17 16:00 Lymphocytes % (Manual) 11 % (20-40) L 01/08/17 16:00 Monocytes % (Manual) 7 % (0-10) 01/08/17 16:00 Eosinophils % (Manual) 2 % (0-4) 01/08/17 16:00 Platelet Estimate Normal (NORMAL) 01/08/17 16:00 Hypochromasia (manual) Slight 01/08/17 16:00 Poikilocytosis (manual Slight 01/08/17 16:00 Anisocytosis (manual) Slight 01/08/17 16:00 Microcytosis (manual) Slight 01/08/17 16:00 Schistocytes Slight 01/08/17 16:00 Sodium 137 mmol/L (132-148) 01/08/17 16:00 Potassium 3.8 mmol/L (3.6-5.2) 01/08/17 16:00 Chloride 95 mmol/L (98-107) L 01/08/17 16:00 Carbon Dioxide 28 mmol/L (22-30) 01/08/17 16:00 Anion Gap 17 (10-20) 01/08/17 16:00 BUN 7 mg/dL (9-20) L 01/08/17 16:00 Creatinine 0.7 MG/DL (0.8-1.5) L 01/08/17 16:00 Est GFR ( Amer) > 60 01/08/17 16:00 Est GFR (Non-Af Amer) > 60 01/08/17 16:00 POC Glucose (mg/dL) 180 mg/dL (65-110) H 01/12/17 11:29 Random Glucose 164 mg/dL (75-110) H 01/08/17 16:00 Calcium 8.8 mg/dl (8.6-10.4) 01/08/17 16:00 Total Bilirubin 0.6 mg/dL (0.2-1.3) 01/08/17 16:00 AST 37 U/L (17-59) 01/08/17 16:00 ALT 51 U/L (21-72) 01/08/17 16:00 Alkaline Phosphatase 137 U/L (38-126) H 01/08/17 16:00 Total Protein 7.4 g/dL (6.3-8.3) 01/08/17 16:00 Albumin 4.3 g/dL (3.5-5.0) 01/08/17 16:00 Globulin 3.0 gm/dL (2.2-3.9) 01/08/17 16:00 Albumin/Globulin Ratio 1.4 (1.0-2.1) 01/08/17 16:00 - Hospital Course Hospital Course: PT IS FOR DISCHARGE TODAY, Pt seen and examined today states sob and congestion improved, denies any chest pain, palpitations, dizziness oob ambulates without sob no overnight events reported by soda room operator Exam - Head Exam Head Exam: ATRAUMATIC, NORMAL INSPECTION, NORMOCEPHALIC - Eye Exam Eye Exam: EOMI, Normal appearance, PERRL Pupil Exam: NORMAL ACCOMODATION, PERRL - ENT Exam ENT Exam: Mucous Membranes Moist - Respiratory Exam Respiratory Exam: Clear to PA & Lateral, Rales, Rhonchi - Cardiovascular Exam Cardiovascular Exam: REGULAR RHYTHM, +S1, +S2 - GI/Abdominal Exam GI & Abdominal Exam: Normal Bowel Sounds Discharge Plan - Discharge Medications Prescriptions: Multivit,Iron,Min 5/Folic Acid [Strovite Forte Caplet] 1 each PO DAILY #30 tablet Alprazolam [Xanax] 0.5 mg PO BID PRN #60 tablet PRN Reason: Anxiety - Follow Up Plan Condition: STABLE Disposition: HOME/ ROUTINE Instructions: Alprazolam (By mouth), COPD (Chronic Obstructive Pulmonary Disease) (DC), COPD (Chronic Obstructive Pulmonary Disease) (GEN), Anxiety (DC) , How Your Lungs Work (DC), How Your Lungs Work (GEN) Additional Instructions: Please f/u with Dr. Garcia office in 1 week F/U WITH dR. Hart OFFICE IN 2 WEEKS Continue medication as per Med. Rec, Please slate picker medication from [facility] Referrals: Ralf Hart MD [Staff Provider] - Hal Garcia MD [Staff Provider] -
== END 2017-01-12 14:17 | disposition home or self-care (01) | DRG 191 ==
LOC: C.ER 14:22 → C.9E 16:32 → C.5T 17:39 → OBSVTOIN 01-10 16:36 → C.5T 01-11 23:28 → C.3T 01-12 07:00 → C.5T 01-12 07:36
PROVIDERS: ADMIT Internal Medicine; ATTEND Internal Medicine
DX: J44.0 Chronic obstructive pulmonary disease with (acute) lower respiratory infection (principal); J44.1 Chronic obstructive pulmonary disease with (acute) exacerbation; J20.9 Acute bronchitis, unspecified; I13.0 Hypertensive heart and chronic kidney disease with heart failure and stage 1 through stage 4 chronic kidney disease, or unspecified chronic kidney disease; I15.9 Secondary hypertension, unspecified; E09.9 Drug or chemical induced diabetes mellitus without complications; N18.9 Chronic kidney disease, unspecified; J30.9 Allergic rhinitis, unspecified; G47.33 Obstructive sleep apnea (adult) (pediatric); J45.909 Unspecified asthma, uncomplicated; E78.00 Pure hypercholesterolemia, unspecified; T38.0X5S Adverse effect of glucocorticoids and synthetic analogues, sequela; Z79.4 Long term (current) use of insulin; Z87.891 Personal history of nicotine dependence

== ENCOUNTER 2017-01-24 22:05 | Inpatient (IN) | payer MEDICARE ==
--- NOTE | 2017-01-24 22:18 | C.PDOC ---
History Of Present Illness Patient presents to the ER with a complaint of SOB; symptoms are similar to previous presentations. Patient is speaking in 1-2 word sentences. Denies chest pain, fever or chills. Time Seen by Provider: 01/24/17 22:18 Chief Complaint (Nursing): Respiratory Distress History Per: Patient History/Exam Limitations: no limitations Onset/Duration Of Symptoms: Hrs, Sudden Onset Current Symptoms Are (Timing): Still Present Initiating Event: Other (Not known) Current Respiratory Medications: None Severity: None Pain Scale Rating Of: 0 Past Medical History Reviewed: Historical Data, Nursing Documentation, Vital Signs Vital Signs: Last Vital Signs Temp Pulse 100 H 01/24/17 22:42 Resp 26 H 01/24/17 22:15 BP 129/79 01/24/17 22:15 Pulse Ox 100 01/24/17 22:15 - Medical History PMH: Anxiety, Arthritis (BACK; KNEES), Asthma, Bronchitis, CHF, COPD, Diabetes, Emphysema, Gastritis, HTN, Hypercholesterolemia, Pneumonia, Chronic Kidney Disease, Sleep Apnea - [facility] Procedures ASSISTANCE WITH RESPIRATORY VENTILATION, 24-96 HRS, CPAP (12/26/16) ASSISTANCE WITH RESPIRATORY VENTILATION, <24 HRS, CPAP (07/08/16) ASSISTANCE WITH RESPIRATORY VENTILATION, >96 HRS, CPAP (08/09/16) CONTINUOUS INVASIVE MECHANICAL VENTILATION <96 CONSEC HRS (11/29/14) INFLUENZA VACCINATION (06/02/14) INSERT ENDOTRACHEAL TUBE (11/29/14) LARYGNOSCOPY AND OTH TRACHEOSCOPY (04/18/15) MEASURE OF CARDIAC SAMPL & PRESSURE, L HEART, PERC APPROACH (12/01/15) NON-INVASIVE MECHANICAL VENTILATION (04/18/15) Family History: States: No Known Family Hx - Social History Hx Tobacco Use: Yes (8 years ppd smoker. quit 1.5 years ago) Hx Alcohol Use: No Hx Substance Use: No - Immunization History Hx Tetanus Toxoid Vaccination: Yes Hx Influenza Vaccination: Yes Hx Pneumococcal Vaccination: Yes Review Of Systems Constitutional: Negative for: Fever, Chills Eyes: Positive for: Redness ENT: Negative for: Throat Pain Cardiovascular: Negative for: Chest Pain Respiratory: Positive for: Shortness of Breath Genitourinary: Negative for: Dysuria Musculoskeletal: Negative for: Back Pain Skin: Negative for: Rash Neurological: Negative for: Weakness Psych: Positive for: Anxiety Physical Exam - Physical Exam Appears: Non-toxic Skin: Warm, Dry, Ecchymosis (From steroid use) Eye(s): bilateral: Normal Inspection Oral Mucosa: Moist, Dry Neck: Trachea Midline, Supple Chest: Symmetrical, No Tenderness Cardiovascular: Rhythm Regular, No Murmur Respiratory: Decreased Breath Sounds, No Rales, No Rhonchi, Wheezing (Scattered) Gastrointestinal/Abdominal: Soft, No Tenderness Back: No CVA Tenderness Extremity: Normal ROM Extremity: Bilateral: Atraumatic Neurological/Psych: Oriented x3 Gait: Unable To Assess ED Course And Treatment - Laboratory Results Result Diagrams: 01/24/17 22:28 01/24/17 22:28 ECG: Interpreted By Me, Viewed By Me ECG Rhythm: Sinus Rhythm (126), Nonspecific Changes O2 Sat by Pulse Oximetry: 100 Pulse Ox Interpretation: Normal - Radiology CXR: Interpreted by Me, Viewed By Me CXR Interpretation: Yes: COPD, Other (unchanged from 01/08/17). No: Infiltrates , Fracture, Pnemothorax Progress Note: Blood work, urinalysis, EKG, and CXR ordered. Solumedrol and nebulizer treatment administered. Patient placed on bipap. pt refused abg Critical Care Time - Critical Care Note Total Time (in mins): 30 Documented critical care: time excludes all time spent performing seperately billable procedures. Disposition Discussed With : Hal Garcia Comment: accepted the pt on his service and took over the care at 11:24 PM Doctor Will See Patient In The: Hospital Counseled Patient/Family Regarding: Studies Performed, Diagnosis - Disposition Disposition: HOSPITALIZED Disposition Time: 22:18 Condition: GUARDED - POA Present On Arrival: Poor Glycemic Control - Clinical Impression Clinical Impression: Respiratory distress, Acute exacerbation of chronic obstructive pulmonary disease (COPD) - Scribe Statement The provider has reviewed the documentation as recorded by the Scribe Guillermo Hackett All medical record entries made by the Scribe were at my direction and personally dictated by me. I have reviewed the chart and agree that the record accurately reflects my personal performance of the history, physical exam, medical decision making, and the department course for this patient. I have also personally directed, reviewed, and agree with the discharge instructions and disposition. Decision To Admit - Pt Status Changed To: Hospital Disposition Of: Inpatient - Admit Certification Admit to Inpatient:: After my assessment, the patient will require hospitalization for at least two midnights. This is because of the severity of symptoms shown, intensity of services needed, and/or the medical risk in this patient being treated as an outpatient. - InPatient: Physician Admission Certification: I certify that this patient requires 2 or more midnights of care for the following reason:: After my assessment, the patient will require hospitalization for at least two midnights. This is because of the severity of symptoms shown, intensity of services needed, and/or the medical risk in this patient being treated as an outpatient. - . Bed Request Type: Telemetry Admitting Physician: Hal Garcia Patient Diagnosis: COPD exacerbation, Dyspnea, Respiratory distress
[2017-01-24 22:21] VITALS: BMI 27.6
[2017-01-24] MEDS ORDERED: Albuterol-Ipratrop 3 mg / 0.5 (3 ml) UD ONE (22:27)
[2017-01-24 22:34] LABS: BASO # 0.2 K/uL (0.0-0.2); BASO % 1.1 % (0.0-2.0); EOS # 0.5 K/uL (0.0-0.7); EOS % 3.7 % (0.0-4.0); HEMATOCRIT 30.3 % (35.0-51.0); LYMPH # 4.1 K/uL (1.0-4.3); LYMPH % 29.7 % (20.0-40.0); MEAN CELL VOLUME 63.8 fL (80.0-94.0); MEAN CORPUSCULAR HEMOGLOBIN 19.3 pg (27.0-31.0); MEAN CORPUSCULAR HGB CONC 30.2 g/dL (33.0-37.0); MEAN PLATELET VOLUME 8.3 fL (7.2-11.7); MONO # 1.2 K/uL (0.0-0.8); MONO % 8.5 % (0.0-10.0); NRBC % 0.1 % (0.0-2.0); RED CELL DISTRIBUTION WIDTH 18.2 % (11.5-14.5); WHITE BLOOD COUNT 13.8 K/uL (4.8-10.8)
[2017-01-24] MEDS: Albuterol-Ipratrop 3 mg / 0.5 (3 ml) UD IH SCH ×2 (22:37→22:38)
[2017-01-24 22:39] LABS: CHLORIDE 101 mmol/L (98-107); POTASSIUM 3.9 mmol/L (3.6-5.2); SODIUM 139 mmol/L (132-148)
[2017-01-24 22:41] LABS: GFR AFRICAN-AMERICAN > 60
[2017-01-24 22:42] LABS: ALB/GLOB RATIO 1.5 (1.0-2.1); ALKALINE PHOSPHATASE 120 U/L (38-126); ALT/SGPT 33 U/L (21-72); AST/SGOT 26 U/L (17-59); BILIRUBIN,TOTAL 0.5 mg/dL (0.2-1.3); BLOOD UREA NITROGEN 7 mg/dL (9-20); CARBON DIOXIDE 25 mmol/L (22-30); GLUCOSE,RANDOM 145 mg/dL (75-110)
[2017-01-24 22:43] LABS: CALCIUM 9.1 mg/dl (8.6-10.4)
[2017-01-24 22:48] LABS: INR 1.1
[2017-01-25] MEDS: guaiFENesin 200 mg/10 ml Syrup UD PO PRN ×2 (02:46→10:34)
[2017-01-25 03:16] VITALS: RESP 20
[2017-01-25] MEDS: Albuterol-Ipratrop 3 mg / 0.5 (3 ml) UD INH PRN ×3 (07:58→20:47)
[2017-01-25] MEDS: (Novolog) Insulin Aspart, Recombinant 100 u/ml 10 ml vial SC SCH ×4 (08:00→21:22)
[2017-01-25 08:12] LABS: RBC URINE 1 /hpf (0-3); URINE BILIRUBIN NEGATIVE (NEGATIVE); URINE BLOOD NEGATIVE (NEGATIVE); URINE COLOR Straw (YELLOW); URINE GLUCOSE (UA) 3+ mg/dL (Normal); URINE KETONE TRACE mg/dL (NEGATIVE); URINE LEUKOCYTE ESTERASE NEG Leu/uL (Negative); URINE PROTEIN NEGATIVE (NEGATIVE); URINE UROBILINOGEN NORMAL mg/dL (0.2-1.0); WBC URINE 1 /hpf (0-5)
--- NOTE | 2017-01-25 10:09 | RAD ---
PROCEDURE: CHEST RADIOGRAPH, 1 VIEW HISTORY: Shortness of breath COMPARISON: 01/08/2017 FINDINGS: LUNGS: No focal infiltrate or effusion. Small nodular density at the left lung base. Biapical pleural thickening with upper lobe granulomatous changes. Additional small nodular density at the lateral aspect of the right lung base. PLEURA: No pneumothorax or pleural fluid seen. CARDIOVASCULAR: Normal. OSSEOUS STRUCTURES: No significant abnormalities. VISUALIZED UPPER ABDOMEN: Normal. OTHER FINDINGS: None. IMPRESSION: No focal infiltrate or effusion. Small nodular density at the left lung base. Biapical pleural thickening with upper lobe granulomatous changes. Additional small nodular density at the lateral aspect of the right lung base.
[2017-01-25] MEDS: Pantoprazole 40 mg EC Tab PO SCH (10:34)
[2017-01-25] MEDS: Enoxaparin 40 mg Syringe SC SCH (10:34)
[2017-01-25] MEDS: MethylPREDNISolone 40 mg Vial IVP SCH ×2 (10:39→21:35)
[2017-01-25] MEDS: Promethazine/Cod 6.25mg-10mg/5ml Syr UD PO PRN (20:08)
[2017-01-25] MEDS: Budesonide 0.5 mg/2 ml Inhal Susp UD INH SCH (20:47)
[2017-01-25] MEDS: (Lantus) Insulin Glargine, Recombinant SC SCH (21:34)
--- NOTE | 2017-01-25 23:43 | CP.PCM.HP ---
History of Present Illness - History of Present Illness History of Present Illness: Patient presents to the ER with a complaint of SOB; symptoms are similar to previous presentations. Patient is speaking in 1-2 word sentences. Denies chest pain, fever or chills Past Patient History - Infectious Disease Hx of Infectious Diseases: None - Past Medical History & Family History Past Medical History?: Yes - Past Social History Smoking Status: Heavy Smoker > 10 Cigarettes Daily - CARDIAC Hx Cardiac Disorders: Yes Hx Congestive Heart Failure: Yes Hx Hypercholesterolemia: Yes Hx Hypertension: Yes - PULMONARY Hx Asthma: Yes Hx Bronchitis: Yes Hx Chronic Obstructive Pulmonary Disease (COPD): Yes Hx Emphysema: Yes Hx Pneumonia: Yes Hx Sleep Apnea: Yes - NEUROLOGICAL Hx Neurological Disorder: No - HEENT Hx HEENT Problems: Yes Hx Cataracts: Yes (left cataract removed, r cataract) Other/Comment: wears eyeglasses for distance - RENAL Hx Chronic Kidney Disease: Yes - ENDOCRINE/METABOLIC Hx Endocrine Disorders: Yes Hx Diabetes Mellitus Type 2: Yes - HEMATOLOGICAL/ONCOLOGICAL Hx Blood Disorders: No - INTEGUMENTARY Hx Dermatological Problems: No - MUSCULOSKELETAL/RHEUMATOLOGICAL Hx Arthritis: Yes (BACK; KNEES) Hx Falls: No - GASTROINTESTINAL Hx Gastrointestinal Disorders: No Hx Gastritis: No - GENITOURINARY/GYNECOLOGICAL Hx Genitourinary Disorders: No - PSYCHIATRIC Hx Psychophysiologic Disorder: No Hx Anxiety: Yes Hx Substance Use: No - SURGICAL HISTORY Hx Surgeries: Yes Hx Cataract Extraction: Yes (left eye, right eye) Hx Cardiac Catheterization: Yes (11/2015) Hx Eye Surgery: Yes Other/Comment: LEFT EYE SURGERY - ANESTHESIA Hx Anesthesia: Yes Hx Anesthesia Reactions: Yes (pt dont know. aware) Hx Malignant Hyperthermia: No Has any member of the family had a problem w/ anesthesia?: No Meds Allergies/Adverse Reactions: Allergies Allergy/AdvReac Type Severity Reaction Status Date / Time acetaminophen [From Tylenol] Allergy RASH Verified 01/24/17 22:21 FISH Allergy SWELLING Verified 01/24/17 22:21 shrimp Allergy SHORTNESS Verified 01/24/17 22:21 OF BREATH Results - Vital Signs Recent Vital Signs: Last Vital Signs Temp 98 F 01/25/17 15:00 Pulse 110 H 01/25/17 16:00 Resp 20 01/25/17 15:00 BP 107/66 01/25/17 15:00 Pulse Ox 98 01/25/17 15:00 - Labs Result Diagrams: 01/24/17 22:28 01/24/17 22:28 Labs: Laboratory Results - last 24 hr 01/25/17 01/25/17 01/25/17 06:10 07:42 11:06 POC Glucose (mg/dL) 347 H 273 H Urine Color Straw Urine Clarity Clear Urine pH 6.0 Ur Specific [place] 1.024 Urine Protein Negative Urine Glucose (UA) 3+ H Urine Ketones Trace Urine Blood Negative Urine Nitrate Negative Urine Bilirubin Negative Urine Urobilinogen Normal Ur Leukocyte Esterase Neg Urine WBC (Auto) 1 Urine RBC (Auto) 1 Ur Squamous Epith Cells < 1 01/25/17 01/25/17 16:42 21:12 POC Glucose (mg/dL) 276 H 240 H Urine Color Urine Clarity Urine pH Ur Specific [place] Urine Protein Urine Glucose (UA) Urine Ketones Urine Blood Urine Nitrate Urine Bilirubin Urine Urobilinogen Ur Leukocyte Esterase Urine WBC (Auto) Urine RBC (Auto) Ur Squamous Epith Cells
[2017-01-26] MEDS: Albuterol-Ipratrop 3 mg / 0.5 (3 ml) UD INH PRN ×4 (01:54→19:27)
[2017-01-26] MEDS: Budesonide 0.5 mg/2 ml Inhal Susp UD INH SCH ×2 (08:21→19:27)
[2017-01-26] MEDS: (Novolog) Insulin Aspart, Recombinant 100 u/ml 10 ml vial SC SCH ×4 (08:31→21:25)
[2017-01-26] MEDS: Enoxaparin 40 mg Syringe SC SCH (09:25)
[2017-01-26] MEDS: Pantoprazole 40 mg EC Tab PO SCH (09:25)
[2017-01-26] MEDS: Multivitamin With Minerals Tab PO SCH (09:26)
[2017-01-26] MEDS: guaiFENesin 200 mg/10 ml Syrup UD PO PRN (09:26)
[2017-01-26] MEDS: MethylPREDNISolone 40 mg Vial IVP SCH ×2 (09:26→21:24)
[2017-01-26] MEDS: (Lantus) Insulin Glargine, Recombinant SC SCH (21:25)
--- NOTE | 2017-01-26 23:46 | CP.PCM.PN ---
Subjective - Date & Time of Evaluation Date of Evaluation: 01/26/17 Time of Evaluation: 20:00 Objective - Vital Signs/Intake and Output Vital Signs (last 24 hours): Temp Pulse Resp BP Pulse Ox 97.9 F 103 H 20 104/68 99 01/26/17 15:00 01/26/17 19:28 01/26/17 15:00 01/26/17 15:00 01/26/17 15:00 - Medications Medications: Current Medications Albuterol/Ipratropium (Duoneb 3 Mg/0.5 Mg (3 Ml) Ud) 3 ml INH RQ6 PRN PRN Reason: Shortness of Breath Last Admin: 01/26/17 19:27 Dose: 3 ml Alprazolam (Xanax) 0.5 mg PO BID PRN PRN Reason: Anxiety Last Admin: 01/26/17 21:24 Dose: 0.5 mg Budesonide (Pulmicort Respules) 0.5 mg INH RBID [facility] Last Admin: 01/26/17 19:27 Dose: Not Given Enoxaparin Sodium (Lovenox) 40 mg SC DAILY [facility] Last Admin: 01/26/17 09:25 Dose: 40 mg Guaifenesin (Robitussin) 200 mg PO Q4H PRN PRN Reason: Cough and congestion Last Admin: 01/26/17 09:26 Dose: 200 mg Insulin Aspart (Novolog) 0 unit SC [facility] PRN Reason: Protocol Last Admin: 01/26/17 21:25 Dose: Not Given Insulin Glargine (Lantus) 16 unit SC [facility] Last Admin: 01/26/17 21:25 Dose: 16 units Metformin HCl (Glucophage) 1,000 mg PO BID [facility] Last Admin: 01/26/17 17:50 Dose: 1,000 mg Methylprednisolone (Solu-Medrol) 40 mg IVP Q12 [facility] Last Admin: 01/26/17 21:24 Dose: 40 mg Montelukast Sodium (Singulair) 10 mg PO HS [facility] Last Admin: 01/26/17 21:24 Dose: 10 mg Multivitamins/Minerals (Therapeutic-M Tab) 1 tab PO DAILY [facility] Last Admin: 01/26/17 09:26 Dose: 1 tab Pantoprazole Sodium (Protonix Ec Tab) 40 mg PO DAILY [facility] Last Admin: 01/26/17 09:25 Dose: 40 mg Promethazine HCl/Codeine (Phenergan/Codeine Oral Syrup) 5 ml PO Q8 PRN PRN Reason: Cough Last Admin: 01/25/17 20:08 Dose: 5 ml Roflumilast (Daliresp) 500 mcg PO DAILY [facility] Last Admin: 01/26/17 09:26 Dose: 500 mcg Rosuvastatin Calcium (Crestor) 5 mg PO HS [facility] Last Admin: 01/26/17 21:24 Dose: 5 mg - Labs Labs: PT 12.3 SECONDS (9.7-12.2) H 01/24/17 22:28 INR 1.1 01/24/17 22:28 APTT 30 SECONDS (21-34) 01/24/17 22:28
[2017-01-27] MEDS: Albuterol-Ipratrop 3 mg / 0.5 (3 ml) UD INH PRN ×3 (04:38→13:37)
[2017-01-27] MEDS: (Novolog) Insulin Aspart, Recombinant 100 u/ml 10 ml vial SC SCH ×3 (08:00→17:50)
[2017-01-27] MEDS: Pantoprazole 40 mg EC Tab PO SCH (09:03)
[2017-01-27] MEDS: guaiFENesin 200 mg/10 ml Syrup UD PO PRN (09:03)
[2017-01-27] MEDS: Enoxaparin 40 mg Syringe SC SCH (09:03)
[2017-01-27] MEDS: Multivitamin With Minerals Tab PO SCH (09:03)
[2017-01-27] MEDS: MethylPREDNISolone 40 mg Vial IVP SCH (09:04)
[2017-01-27] MEDS: Promethazine/Cod 6.25mg-10mg/5ml Syr UD PO PRN (14:36)
--- NOTE | 2017-01-27 15:39 | CP.PCM.PN ---
Subjective - Date & Time of Evaluation Date of Evaluation: 01/27/17 Time of Evaluation: 11:00 - Subjective Subjective: Pt seen and examined today, states better, sob and cough improved, denies any chest pain, sob, palpitations no overnight events reported by RN oob ambulating without sob Objective - Vital Signs/Intake and Output Vital Signs (last 24 hours): Temp Pulse Resp BP Pulse Ox 97.3 F L 90 20 120/78 100 01/27/17 07:15 01/27/17 07:15 01/27/17 07:15 01/27/17 07:15 01/27/17 07:15 Intake and Output: 01/27/17 01/27/17 06:59 18:59 Intake Total 0 Balance 0 - Medications Medications: Current Medications Albuterol/Ipratropium (Duoneb 3 Mg/0.5 Mg (3 Ml) Ud) 3 ml INH RQ6 PRN PRN Reason: Shortness of Breath Last Admin: 01/27/17 13:37 Dose: 3 ml Alprazolam (Xanax) 0.5 mg PO BID PRN PRN Reason: Anxiety Last Admin: 01/27/17 10:09 Dose: 0.5 mg Budesonide (Pulmicort Respules) 0.5 mg INH RBID [facility] Last Admin: 01/26/17 19:27 Dose: Not Given Enoxaparin Sodium (Lovenox) 40 mg SC DAILY [facility] Last Admin: 01/27/17 09:03 Dose: 40 mg Guaifenesin (Robitussin) 200 mg PO Q4H PRN PRN Reason: Cough and congestion Last Admin: 01/27/17 09:03 Dose: 200 mg Insulin Aspart (Novolog) 0 unit SC [facility] PRN Reason: Protocol Last Admin: 01/27/17 12:00 Dose: 1 unit Insulin Glargine (Lantus) 16 unit SC [facility] Last Admin: 01/26/17 21:25 Dose: 16 units Metformin HCl (Glucophage) 1,000 mg PO BID [facility] Last Admin: 01/27/17 09:03 Dose: 1,000 mg Methylprednisolone (Solu-Medrol) 40 mg IVP Q12 [facility] Last Admin: 01/27/17 09:04 Dose: 40 mg Montelukast Sodium (Singulair) 10 mg PO [facility] Last Admin: 01/26/17 21:24 Dose: 10 mg Multivitamins/Minerals (Therapeutic-M Tab) 1 tab PO DAILY [facility] Last Admin: 01/27/17 09:03 Dose: 1 tab Pantoprazole Sodium (Protonix Ec Tab) 40 mg PO DAILY [facility] Last Admin: 01/27/17 09:03 Dose: 40 mg Promethazine HCl/Codeine (Phenergan/Codeine Oral Syrup) 5 ml PO Q8 PRN PRN Reason: Cough Last Admin: 01/27/17 14:36 Dose: 5 ml Roflumilast (Daliresp) 500 mcg PO DAILY [facility] Last Admin: 01/27/17 09:04 Dose: 500 mcg Rosuvastatin Calcium (Crestor) 5 mg PO HS [facility] Last Admin: 01/26/17 21:24 Dose: 5 mg - Labs Labs: PT 12.3 SECONDS (9.7-12.2) H 01/24/17 22:28 INR 1.1 01/24/17 22:28 APTT 30 SECONDS (21-34) 01/24/17 22:28 Assessment and Plan - Assessment and Plan (Free Text) Assessment: 66 yr old male admitted for exc. COPD pt clinically improved after solumedrol D/W Dr. Garcia, cleared for discharge home today and [facility] Garcia office in 1 week Discharge plan discussed with patient who understands and agrees with plan Pt instructed to returns ot ED if symptoms returns
[2017-01-27 16:27] VITALS: BP 125/75; PULSE 114; TEMP 98.1; O2SAT 98
--- NOTE | 2017-01-27 18:01 | CP.PCM.PN ---
Subjective - Date & Time of Evaluation Date of Evaluation: 01/27/17 Objective - Vital Signs/Intake and Output Vital Signs (last 24 hours): Temp Pulse Resp BP Pulse Ox 98.1 F 114 H 20 125/75 98 01/27/17 15:17 01/27/17 15:17 01/27/17 15:17 01/27/17 15:17 01/27/17 15:17 Intake and Output: 01/27/17 01/27/17 06:59 18:59 Intake Total 0 Balance 0 - Medications Medications: Current Medications Albuterol/Ipratropium (Duoneb 3 Mg/0.5 Mg (3 Ml) Ud) 3 ml INH RQ6 PRN PRN Reason: Shortness of Breath Last Admin: 01/27/17 13:37 Dose: 3 ml Alprazolam (Xanax) 0.5 mg PO BID PRN PRN Reason: Anxiety Last Admin: 01/27/17 10:09 Dose: 0.5 mg Budesonide (Pulmicort Respules) 0.5 mg INH RBID [facility] Last Admin: 01/26/17 19:27 Dose: Not Given Enoxaparin Sodium (Lovenox) 40 mg SC DAILY [facility] Last Admin: 01/27/17 09:03 Dose: 40 mg Guaifenesin (Robitussin) 200 mg PO Q4H PRN PRN Reason: Cough and congestion Last Admin: 01/27/17 09:03 Dose: 200 mg Insulin Aspart (Novolog) 0 unit SC [facility] PRN Reason: Protocol Last Admin: 01/27/17 17:50 Dose: 5 unit Insulin Glargine (Lantus) 16 unit SC [facility] Last Admin: 01/26/17 21:25 Dose: 16 units Metformin HCl (Glucophage) 1,000 mg PO BID [facility] Last Admin: 01/27/17 17:50 Dose: 1,000 mg Methylprednisolone (Solu-Medrol) 40 mg IVP Q12 [facility] Last Admin: 01/27/17 09:04 Dose: 40 mg Montelukast Sodium (Singulair) 10 mg PO HS [facility] Last Admin: 01/26/17 21:24 Dose: 10 mg Multivitamins/Minerals (Therapeutic-M Tab) 1 tab PO DAILY [facility] Last Admin: 01/27/17 09:03 Dose: 1 tab Pantoprazole Sodium (Protonix Ec Tab) 40 mg PO DAILY [facility] Last Admin: 01/27/17 09:03 Dose: 40 mg Promethazine HCl/Codeine (Phenergan/Codeine Oral Syrup) 5 ml PO Q8 PRN PRN Reason: Cough Last Admin: 01/27/17 14:36 Dose: 5 ml Roflumilast (Daliresp) 500 mcg PO DAILY [facility] Last Admin: 01/27/17 09:04 Dose: 500 mcg Rosuvastatin Calcium (Crestor) 5 mg PO HS [facility] Last Admin: 01/26/17 21:24 Dose: 5 mg - Labs Labs: PT 12.3 SECONDS (9.7-12.2) H 01/24/17 22:28 INR 1.1 01/24/17 22:28 APTT 30 SECONDS (21-34) 01/24/17 22:28
--- NOTE | 2017-01-28 23:30 | CP.PCM.DIS ---
Provider - Provider Date of Admission: 01/24/17 23:28 Attending physician: Hal Garcia MD Hospital Course - Lab Results Lab Results: Most Recent Lab Values WBC 13.8 K/uL (4.8-10.8) H 01/24/17 22: RBC 4.74 Mil/uL (4.40-5.90) 01/24/17 22: Hgb 9.1 g/dL (12.0-18.0) L 01/24/17 22: Hct 30.3 % (35.0-51.0) L 01/24/17 22: MCV 63.8 fL (80.0-94.0) L 01/24/17 22: MCH 19.3 pg (27.0-31.0) L 01/24/17: MCHC 30.2 g/dL (33.0-37.0) L 01/24/17: RDW 18.2 % (11.5-14.5) H 01/24/17 22: Plt Count 380 K/uL (130-400) 01/24/17 22: MPV 8.3 fL (7.2-11.7) 01/24/17 22: Neut % (Auto) 57.0 % (50.0-75.0) 01/24/17: Lymph % (Auto) 29.7 % (20.0-40.0) 01/24/17: [place] % (Auto) 8.5 % (0.0-10.0) 01/24/17: Eos % (Auto) 3.7 % (0.0-4.0) 01/24/17: Baso % (Auto) 1.1 % (0.0-2.0) 01/24/17: Neut # 7.9 K/uL (1.8-7.0) H 01/24/17: Lymph # 4.1 K/uL (1.0-4.3) 01/24/17: [place] # 1.2 K/uL (0.0-0.8) H 01/24/17 22: Eos # 0.5 K/uL (0.0-0.7) 01/24/17 22:28 Baso # 0.2 K/uL (0.0-0.2) 01/24/17 22:28 PT 12.3 SECONDS (9.7-12.2) H 01/24/17 22:28 INR 1.1 01/24/17 22:28 APTT 30 SECONDS (21-34) 01/24/17 22:28 Sodium 139 mmol/L (132-148) 01/24/17 22:28 Potassium 3.9 mmol/L (3.6-5.2) 01/24/17 22:28 Chloride 101 mmol/L (98-107) 01/24/17 22:28 Carbon Dioxide 25 mmol/L (22-30) 01/24/17 22:28 Anion Gap 18 (10-20) 01/24/17 22:28 BUN 7 mg/dL (9-20) L 01/24/17 22:28 Creatinine 1.0 MG/DL (0.8-1.5) 01/24/17 22:28 Est GFR ( Amer) > 60 01/24/17 22:28 Est GFR (Non-Af Amer) > 60 01/24/17 22:28 POC Glucose (mg/dL) 350 mg/dL (65-110) H 01/27/17 16:57 Random Glucose 145 mg/dL (75-110) H 01/24/17 22:28 Calcium 9.1 mg/dl (8.6-10.4) 01/24/17 22:28 Total Bilirubin 0.5 mg/dL (0.2-1.3) 01/24/17 22:28 AST 26 U/L (17-59) 01/24/17 22:28 ALT 33 U/L (21-72) 01/24/17 22:28 Alkaline Phosphatase 120 U/L (38-126) 01/24/17 22:28 Total Protein 7.0 g/dL (6.3-8.3) 01/24/17 22:28 Albumin 4.1 g/dL (3.5-5.0) 01/24/17 22:28 Globulin 2.8 gm/dL (2.2-3.9) 01/24/17 22:28 Albumin/Globulin Ratio 1.5 (1.0-2.1) 01/24/17 22:28 Urine Color Straw (YELLOW) 01/25/17 07:42 Urine Clarity Clear (Clear) 01/25/17 07:42 Urine pH 6.0 (5.0-8.0) 01/25/17 07:42 Ur Specific [place] 1.024 (1.003-1.030) 01/25/17 07:42 Urine Protein Negative mg/dL (NEGATIVE) 01/25/17 07:42 Urine Glucose (UA) 3+ mg/dL (Normal) H 01/25/17 07:42 Urine Ketones Trace mg/dL (NEGATIVE) 01/25/17 07:42 Urine Blood Negative (NEGATIVE) 01/25/17 07:42 Urine Nitrate Negative (NEGATIVE) 01/25/17 07:42 Urine Bilirubin Negative (NEGATIVE) 01/25/17 07:42 Urine Urobilinogen Normal mg/dL (0.2-1.0) 01/25/17 07:42 Ur Leukocyte Esterase Neg [place]/uL (Negative) 01/25/17 07:42 Urine WBC (Auto) 1 /hpf (0-5) 01/25/17 07:42 Urine RBC (Auto) 1 /hpf (0-3) 01/25/17 07:42 Ur Squamous Epith Cells < 1 /hpf (0-5) 01/25/17 07:42 Discharge Plan - Follow Up Plan Condition: GUARDED Disposition: HOME/ ROUTINE Instructions: COPD (Chronic Obstructive Pulmonary Disease) (DC), Dyspnea (GEN) Additional Instructions: Please f/u with Dr. Garcia office in 1 week f/u with Dr. Nuno office in 2 week - call for appointment Continue medication as per Med. REc. Referrals: Ralf Nuno MD [Staff Provider] - Hal Garcia MD [Staff Provider] -
--- NOTE | 2017-01-29 20:54 | CARD ---
APPROVED REPORT EKG Measurement Heart [id number] <Conclusion> Sinus tachycardia Cannot rule out Anterior infarct, age undetermined Abnormal ECG
== END 2017-01-27 18:05 | disposition home or self-care (01) | DRG 191 ==
LOC: C.ER 22:05 → C.9E 23:28 → C.6T 23:58
PROVIDERS: ADMIT Internal Medicine; ATTEND Internal Medicine
PROC: 5A09457 Assistance with Respiratory Ventilation, 24-96 Consecutive Hours, Continuous Positive Airway Pressure (ICD-10-PCS; principal; 2017-01-24)
DX: J44.1 Chronic obstructive pulmonary disease with (acute) exacerbation (principal); I13.0 Hypertensive heart and chronic kidney disease with heart failure and stage 1 through stage 4 chronic kidney disease, or unspecified chronic kidney disease; E11.22 Type 2 diabetes mellitus with diabetic chronic kidney disease; I50.9 Heart failure, unspecified; J45.909 Unspecified asthma, uncomplicated; Z87.891 Personal history of nicotine dependence; N18.9 Chronic kidney disease, unspecified; Z79.4 Long term (current) use of insulin

== ENCOUNTER 2017-02-06 09:38 | Inpatient (IN) | payer MEDICARE ==
[2017-02-06 09:38] VITALS: BMI 26.3
--- NOTE | 2017-02-06 10:29 | C.PDOC ---
History Of Present Illness 66 yr old male with PMHx of COPD, brought in via BLS, presents to the ER for COPD exacerbation last night. Patient has multiple ER visits and was seen previously on 01/28. Patient states current symptoms feel similar to prior. Patient reports of SOB, with no improvement on home oxygen and nebulizer. Also reports of some left sided chest pain around 8pm last night. Patient requested to be on BiPAP in ER and reports improvement of symptoms on BiPAP. Patient denies fever, nausea, vomiting, weakness or numbness. Time Seen by Provider: 02/06/17 09:47 Chief Complaint (Nursing): Respiratory Distress History Per: Patient History/Exam Limitations: no limitations Onset/Duration Of Symptoms: Sudden Onset (Last night ) Current Symptoms Are (Timing): Still Present Current Respiratory Medications: See Home Med List, Albuterol Past Medical History Reviewed: Historical Data, Nursing Documentation, Vital Signs Vital Signs: Last Vital Signs Temp Pulse 119 H 02/06/17 10:28 Resp 17 02/06/17 10:28 BP 128/76 02/06/17 10:28 Pulse Ox 100 02/06/17 12:14 - Medical History PMH: Anxiety, Arthritis (BACK; KNEES), Asthma, Bronchitis, CHF, COPD, Diabetes, Emphysema, HTN, Hypercholesterolemia, Pneumonia, Chronic Kidney Disease, Sleep Apnea - [facility] Procedures ASSISTANCE WITH RESPIRATORY VENTILATION, 24-96 HRS, CPAP (01/24/17) ASSISTANCE WITH RESPIRATORY VENTILATION, <24 HRS, CPAP (07/08/16) ASSISTANCE WITH RESPIRATORY VENTILATION, >96 HRS, CPAP (08/09/16) CONTINUOUS INVASIVE MECHANICAL VENTILATION <96 CONSEC HRS (11/29/14) INFLUENZA VACCINATION (06/02/14) INSERT ENDOTRACHEAL TUBE (11/29/14) LARYGNOSCOPY AND OTH TRACHEOSCOPY (04/18/15) MEASURE OF CARDIAC SAMPL & PRESSURE, L HEART, PERC APPROACH (12/01/15) NON-INVASIVE MECHANICAL VENTILATION (04/18/15) Family History: States: No Known Family Hx - Social History Hx Tobacco Use: Yes (8 years ppd smoker. quit 1.5 years ago) Hx Alcohol Use: No Hx Substance Use: No - Immunization History Hx Tetanus Toxoid Vaccination: Yes Hx Influenza Vaccination: Yes Hx Pneumococcal Vaccination: Yes Review Of Systems Except As Marked, All Systems Reviewed And Found Negative. Constitutional: Negative for: Fever Cardiovascular: Positive for: Chest Pain (Left sided ) Respiratory: Positive for: Shortness of Breath Gastrointestinal: Negative for: Nausea, Vomiting Neurological: Negative for: Weakness, Numbness Physical Exam - Physical Exam Appears: Non-toxic, In Acute Distress (Mild respirtory distress) Skin: Warm, Dry, No Rash Head: Atraumatic, Normacephalic Oral Mucosa: Moist Throat: Normal, No Erythema, No Exudate, No Drooling Neck: Normal, Normal ROM, Supple Chest: Symmetrical, No Tenderness Cardiovascular: Rhythm Regular, No Murmur Respiratory: Decreased Breath Sounds (Bilateral), No Rales, Wheezing (Diffuse expirtory wheezing ) Gastrointestinal/Abdominal: Normal Exam, Soft, No Tenderness, No Guarding, No Rebound Extremity: Normal ROM, No Swelling Neurological/Psych: Oriented x3, Normal Speech, Normal Motor ED Course And Treatment - Laboratory Results Result Diagrams: 02/06/17 11:52 02/06/17 11:52 ECG: Interpreted By Me ECG Rhythm: Sinus Tachycardia ECG Interpretation: Abnormal Rate From EC (BPM ) O2 Sat by Pulse Oximetry: 100 (RA ) Pulse Ox Interpretation: Normal - Radiology CXR: Interpreted by Me, Viewed By Me CXR Interpretation: Yes: No Acute Disease, Other (Unchanged from prior ) Progress Note: 02/06/17 11:25. D/W DR ZHANG WILL ADMIT. CXR, LABS PENDING. - Data Reviewed. Data Reviewed: Lab, Diagnostic imaging, EKG, Old records. - Continuity of Care. Discussed patient case with:: Patient Progress - Data Reviewed Data Reviewed: Lab, Diagnostic imaging, EKG, Old records Disposition Counseled Patient/Family Regarding: Studies Performed, Diagnosis - Disposition Disposition: HOSPITALIZED Disposition Time: 11:30 Condition: STABLE - POA Present On Arrival: None - Clinical Impression Clinical Impression: COPD exacerbation - Scribe Statement The provider has reviewed the documentation as recorded by the Merryibilya Toscano Provider Attestation: All medical record entries made by the Merryibilya were at my direction and personally dictated by me. I have reviewed the chart and agree that the record accurately reflects my personal performance of the history, physical exam, medical decision making, and the department course for this patient. I have also personally directed, reviewed, and agree with the discharge instructions and disposition. Decision To Admit - Pt Status Changed To: Hospital Disposition Of: Observation - . Bed Request Type: Telemetry Admitting Physician: Hal Zhang Patient Diagnosis: COPD exacerbation
--- NOTE | 2017-02-06 11:25 | C.PDOC ---
Past Medical History Vital Signs: Last Vital Signs Temp Pulse 119 H 02/06/17 10:28 Resp 17 02/06/17 10:28 BP 128/76 02/06/17 10:28 Pulse Ox 100 02/06/17 10:31 - Medical History PMH: Anxiety, Arthritis (BACK; KNEES), Asthma, Bronchitis, CHF, COPD, Diabetes, Emphysema, HTN, Hypercholesterolemia, Pneumonia, Chronic Kidney Disease, Sleep Apnea Denies: Gastritis - [facility] Procedures ASSISTANCE WITH RESPIRATORY VENTILATION, 24-96 HRS, CPAP (01/24/17) ASSISTANCE WITH RESPIRATORY VENTILATION, <24 HRS, CPAP (07/08/16) ASSISTANCE WITH RESPIRATORY VENTILATION, >96 HRS, CPAP (08/09/16) CONTINUOUS INVASIVE MECHANICAL VENTILATION <96 CONSEC HRS (11/29/14) INFLUENZA VACCINATION (06/02/14) INSERT ENDOTRACHEAL TUBE (11/29/14) LARYGNOSCOPY AND OTH TRACHEOSCOPY (04/18/15) MEASURE OF CARDIAC SAMPL & PRESSURE, L HEART, PERC APPROACH (12/01/15) NON-INVASIVE MECHANICAL VENTILATION (04/18/15) Family History: States: No Known Family Hx, Unknown Family Hx - Social History Hx Tobacco Use: Yes (8 years ppd smoker. quit 1.5 years ago) Hx Alcohol Use: No Hx Substance Use: No - Immunization History Hx Tetanus Toxoid Vaccination: Yes Hx Influenza Vaccination: Yes Hx Pneumococcal Vaccination: Yes ED Course And Treatment O2 Sat by Pulse Oximetry: 100 Progress - Re-Evaluation Re-evaluation Note: 02/06/17 11:25 D/W DR ZHANG WILL ADMIT. CXR, LABS PENDING - Data Reviewed Data Reviewed: Lab, Diagnostic imaging, EKG, Old records - Continuity of Care Discussed patient case with:: Patient
[2017-02-06 11:59] LABS: BASO # 0.2 K/uL (0.0-0.2); BASO % 1.3 % (0.0-2.0); EOS # 0.6 K/uL (0.0-0.7); EOS % 4.9 % (0.0-4.0); HEMOGLOBIN 9.1 g/dL (12.0-18.0); LYMPH % 24.2 % (20.0-40.0); MEAN CELL VOLUME 62.7 fL (80.0-94.0); MEAN CORPUSCULAR HEMOGLOBIN 18.8 pg (27.0-31.0); MEAN PLATELET VOLUME 8.5 fL (7.2-11.7); MONO # 1.1 K/uL (0.0-0.8); MONO % 8.5 % (0.0-10.0); NEUT # 7.5 K/uL (1.8-7.0); NEUT % 61.1 % (50.0-75.0); NRBC % 0.1 % (0.0-2.0); RBC 4.85 Mil/uL (4.40-5.90); RED CELL DISTRIBUTION WIDTH 18.3 % (11.5-14.5); WHITE BLOOD COUNT 12.3 K/uL (4.8-10.8)
[2017-02-06] MEDS ORDERED: MethylPREDNISolone 40 mg Vial ONE (12:01)
[2017-02-06 12:15] LABS: GFR AFRICAN-AMERICAN > 60; GFR NON-AFRICAN AMERICAN > 60
[2017-02-06 12:16] LABS: BLOOD UREA NITROGEN 7 mg/dL (9-20)
[2017-02-06 12:17] LABS: CALCIUM 9.2 mg/dl (8.6-10.4)
--- NOTE | 2017-02-06 12:21 | RAD ---
PROCEDURE: CHEST RADIOGRAPH, 1 VIEW HISTORY: SOB COMPARISON: None available. FINDINGS: LUNGS: Biapical pleural thickening with upper lobe granulomatous changes. No focal infiltrate or effusion. Few punctate nodular densities at the left lung base/costophrenic angle. Right hilar prominence. PLEURA: No pneumothorax or pleural fluid seen. CARDIOVASCULAR: Normal. OSSEOUS STRUCTURES: Degenerative changes in the spine and shoulders. VISUALIZED UPPER ABDOMEN: Normal. OTHER FINDINGS: None. IMPRESSION: Biapical pleural thickening with upper lobe granulomatous changes. No focal infiltrate or effusion. Few punctate nodular densities at the left lung base/costophrenic angle. Right hilar prominence.
[2017-02-06] MEDS ORDERED: Albuterol-Ipratrop 3 mg / 0.5 (3 ml) UD ONE (13:30)
[2017-02-06] MEDS ORDERED: Albuterol-Ipratrop 3 mg / 0.5 (3 ml) UD INH SCH (14:00)
[2017-02-06] MEDS: (Novolog) Insulin Aspart, Recombinant 100 u/ml 10 ml vial SC SCH ×2 (17:23→21:31)
[2017-02-06] MEDS: Promethazine/Cod 6.25mg-10mg/5ml Syr UD PO PRN (18:48)
[2017-02-06] MEDS: Fluticasone-Salmeterol 250-50mcg Diskus INH SCH (20:32)
[2017-02-06] MEDS: Albuterol-Ipratrop 3 mg / 0.5 (3 ml) UD INH SCH (20:32)
[2017-02-06] MEDS: Budesonide 0.5 mg/2 ml Inhal Susp UD INH SCH (20:33)
[2017-02-06] MEDS: MethylPREDNISolone 40 mg Vial IVP SCH (21:32)
[2017-02-06] MEDS: (Lantus) Insulin Glargine, Recombinant SC SCH (21:39)
[2017-02-07] MEDS: Albuterol-Ipratrop 3 mg / 0.5 (3 ml) UD INH SCH ×4 (01:23→19:50)
[2017-02-07] MEDS: MethylPREDNISolone 40 mg Vial IVP SCH ×3 (05:45→22:17)
[2017-02-07] MEDS: (Novolog) Insulin Aspart, Recombinant 100 u/ml 10 ml vial SC SCH ×4 (08:21→22:15)
[2017-02-07] MEDS: Fluticasone-Salmeterol 250-50mcg Diskus INH SCH ×2 (08:22→19:49)
[2017-02-07] MEDS: Budesonide 0.5 mg/2 ml Inhal Susp UD INH SCH ×2 (08:23→19:48)
[2017-02-07] MEDS: Pantoprazole 40 mg EC Tab PO SCH (09:39)
[2017-02-07] MEDS: Enoxaparin 40 mg Syringe SC SCH (09:39)
[2017-02-07] MEDS: Multivitamin With Minerals Tab PO SCH (09:39)
[2017-02-07] MEDS: Promethazine/Cod 6.25mg-10mg/5ml Syr UD PO PRN ×2 (09:46→22:16)
[2017-02-07] MEDS: Lidocaine 5% Patch TD SCH (09:48)
--- NOTE | 2017-02-07 11:48 | CARD ---
APPROVED REPORT EKG Measurement Heart [id number] <Conclusion> Sinus tachycardia Otherwise normal ECG
--- NOTE | 2017-02-07 21:29 | CP.PCM.HP ---
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 Patient has multiple ER visits and was seen previously on 01/28. Patient states current symptoms feel similar to prior. He is tacycardic when he moves, Patient reports of SOB, with no improvement on home oxygen and nebulizer. Also reports of some left sided chest pain around 8pm last night. Patient requested to be on BiPAP in ER and reports improvement of symptoms on BiPAP. Patient denies fever, nausea, vomiting, weakness or numbness. Present on Admission - Present on Admission Any Indicators Present on Admission: Yes Review of Systems - Review of Systems Systems not reviewed;Unavailable: Unstable Vital Signs, Respiratory Distress - Constitutional Constitutional: Fatigue, Lethargy, Malaise, Weakness - EENT Eyes: Itchy Eyes Nose/Mouth/Throat: Nasal Congestion - Cardiovascular Cardiovascular: Dyspnea, Dyspnea on Exertion, Irregular Heart Rhythm, Paroxysmal Nocturnal Dyspnea - Respiratory Respiratory: Cough, Dyspnea, Change in Mucous Color - Gastrointestinal Gastrointestinal: absent: As Per HPI, Abdominal Pain, Belching, Bloating, Change in Bowel Habits, Change in Stool Character, Coffee Ground Emesis, Constipation, Cramping, Diarrhea, Dyspepsia, Dysphagia, Early Satiety, Excessive Flatus, Fecal Incontinence, Heartburn, Hematemesis, Hematochezia, Loose Stools, Melena, Nausea, Odynophagia, Temesmus, Vomiting, Other - Genitourinary Genitourinary: absent: As Per HPI, Change in Urinary Stream, Difficulty Urinating, Dysuria, Flank Pain, Hematuria, Pyuria, Nocturia, Urinary Incontinence, Urinary Frequency, Urinary Hesitance, Urinary Urgency, Voiding Freq/Small Amts, Freq UTI, Hx Renal/Bladder Calculi, Hx /Renal Surgery, Bladder Distension, Other - Musculoskeletal Musculoskeletal: absent: As Per HPI, Abnormal Gait, Arthralgias, Atrophy, Back Pain, Deformity, Joint Swelling, Limited Range of Motion, Loss of Height, Muscle Cramps, Muscle Weakness, Myalgias, Neck Pain, Numbness, Radiating Pain into Limb, Stiffness, Tingling, Other Past Patient History - Infectious Disease Hx of Infectious Diseases: None - Past Medical History & Family History Past Medical History?: Yes - Past Social History Smoking Status: Former Smoker - CARDIAC Hx Congestive Heart Failure: Yes Hx Hypercholesterolemia: Yes Hx Hypertension: Yes - PULMONARY Hx Asthma: Yes Hx Bronchitis: Yes Hx Chronic Obstructive Pulmonary Disease (COPD): Yes Hx Emphysema: Yes Hx Pneumonia: Yes Hx Sleep Apnea: Yes - NEUROLOGICAL Hx Neurological Disorder: No - HEENT Hx HEENT Problems: Yes Hx Cataracts: Yes (left cataract removed, r cataract) Other/Comment: wears eyeglasses for distance - RENAL Hx Chronic Kidney Disease: Yes - ENDOCRINE/METABOLIC Hx Endocrine Disorders: Yes Hx Diabetes Mellitus Type 2: Yes - HEMATOLOGICAL/ONCOLOGICAL Hx Blood Disorders: No - INTEGUMENTARY Hx Dermatological Problems: No - MUSCULOSKELETAL/RHEUMATOLOGICAL Hx Arthritis: Yes (BACK; KNEES) Hx Falls: No - GASTROINTESTINAL Hx Gastritis: No - GENITOURINARY/GYNECOLOGICAL Hx Genitourinary Disorders: No - PSYCHIATRIC Hx Anxiety: Yes Hx Substance Use: No - SURGICAL HISTORY Hx Surgeries: Yes Hx Cataract Extraction: Yes (left eye, right eye) Hx Cardiac Catheterization: Yes (11/2015) Hx Eye Surgery: Yes Other/Comment: LEFT EYE SURGERY - ANESTHESIA Hx Anesthesia: Yes Hx Anesthesia Reactions: Yes (pt dont know. aware) Hx Malignant Hyperthermia: No Meds Allergies/Adverse Reactions: Allergies Allergy/AdvReac Type Severity Reaction Status Date / Time acetaminophen [From Tylenol] Allergy RASH Verified 01/24/17 22:21 FISH Allergy SWELLING Verified 01/24/17 22:21 shrimp Allergy SHORTNESS Verified 01/24/17 22:21 OF BREATH Physical Exam - Constitutional Appears: No Acute Distress Additional comments: anxious - Eye Exam Eye Exam: EOMI, Normal appearance, PERRL Pupil Exam: NORMAL ACCOMODATION, PERRL - ENT Exam ENT Exam: Mucous Membranes Moist, Normal Exam - Respiratory Exam Respiratory Exam: Decreased Breath Sounds, Rhonchi, Wheezes - Cardiovascular Exam Cardiovascular Exam: Tachycardia, +S1, +S2 - GI/Abdominal Exam GI & Abdominal Exam: Normal Bowel Sounds, Soft. absent: Tenderness - Rectal Exam Rectal Exam: Deferred Results - Vital Signs Recent Vital Signs: Last Vital Signs Temp 98.1 F 02/07/17 15:13 Pulse 118 H 02/07/17 19:51 Resp 20 02/07/17 15:13 BP 119/73 02/07/17 15:13 Pulse Ox 97 02/07/17 15:13 - Labs Result Diagrams: 02/06/17 11:52 02/06/17 11:52 Labs: Laboratory Results - last 24 hr 02/06/17 02/07/17 02/07/17 21:30 06:50 11:53 POC Glucose (mg/dL) 269 H 305 H 310 H 02/07/17 16:31 POC Glucose (mg/dL) 322 H Assessment & Plan (1) COPD exacerbation Status: Acute Priority: Medium (2) Acute bronchitis with asthma with acute exacerbation Status: Acute (3) Tachycardia Status: Acute (4) Allergic rhinitis Status: Chronic Priority: Medium (5) PUNEET (generalized anxiety disorder) Status: Chronic (6) Steroid-induced diabetes Status: Chronic
--- NOTE | 2017-02-07 21:29 | CP.PCM.PN ---
Subjective - Date & Time of Evaluation Date of Evaluation: 02/07/17 Time of Evaluation: 19:25 - Subjective Subjective: Pt seen & evaluated, is coughing, wheezing and short of breath Objective - Vital Signs/Intake and Output Vital Signs (last 24 hours): Temp Pulse Resp BP Pulse Ox 98.1 F 118 H 20 119/73 97 02/07/17 15:13 02/07/17 19:51 02/07/17 15:13 02/07/17 15:13 02/07/17 15:13 Intake and Output: 02/07/17 02/08/17 18:59 06:59 Intake Total 600 Balance 600 - Medications Medications: Current Medications Albuterol/Ipratropium (Duoneb 3 Mg/0.5 Mg (3 Ml) Ud) 3 ml INH RQ6 [facility] Last Admin: 02/07/17 19:50 Dose: 3 ml Albuterol/Ipratropium (Duoneb 3 Mg/0.5 Mg (3 Ml) Ud) 3 ml INH RSTAT [facility] Stop: 02/08/17 14:01 Alprazolam (Xanax) 0.5 mg PO BID PRN PRN Reason: Anxiety Stop: 02/13/17 15:52 Last Admin: 02/07/17 09:46 Dose: 0.5 mg Budesonide (Pulmicort Respules) 0.5 mg INH RBID [facility] Last Admin: 02/07/17 19:48 Dose: Not Given Enoxaparin Sodium (Lovenox) 40 mg SC DAILY [facility] Last Admin: 02/07/17 09:39 Dose: 40 mg Insulin Aspart (Novolog) 0 unit SC [facility] PRN Reason: Protocol Last Admin: 02/07/17 17:37 Dose: 6 unit Insulin Glargine (Lantus) 16 unit SC HS [facility] Last Admin: 02/06/17 21:39 Dose: 16 u Lidocaine (Lidoderm) 1 ea TD DAILY [facility] Last Admin: 02/07/17 09:48 Dose: 1 ea Metformin HCl (Glucophage) 1,000 mg PO BID [facility] Last Admin: 02/07/17 17:36 Dose: 1,000 mg Methylprednisolone (Solu-Medrol) 40 mg IVP Q8 [facility] Last Admin: 02/07/17 13:15 Dose: 40 mg Montelukast Sodium (Singulair) 10 mg PO HS [facility] Last Admin: 02/06/17 21:32 Dose: 10 mg Multivitamins/Minerals (Therapeutic-M Tab) 1 tab PO DAILY [facility] Last Admin: 02/07/17 09:39 Dose: 1 tab Pantoprazole Sodium (Protonix Ec Tab) 40 mg PO DAILY [facility] Last Admin: 02/07/17 09:39 Dose: 40 mg Promethazine HCl/Codeine (Phenergan/Codeine Oral Syrup) 5 ml PO Q8 PRN PRN Reason: Cough Last Admin: 02/07/17 09:46 Dose: 5 ml Roflumilast (Daliresp) 500 mcg PO DAILY [facility] Last Admin: 02/07/17 09:39 Dose: 500 mcg Rosuvastatin Calcium (Crestor) 10 mg PO [facility] Last Admin: 02/06/17 21:33 Dose: 10 mg Fluticasone/Salmeterol (Advair Diskus 250/50) 1 puff INH RBID [facility] Last Admin: 02/07/17 19:49 Dose: 1 puff - Constitutional Appears: No Acute Distress - Head Exam Head Exam: ATRAUMATIC, NORMAL INSPECTION, NORMOCEPHALIC - Eye Exam Eye Exam: EOMI, Normal appearance, PERRL Pupil Exam: NORMAL ACCOMODATION, PERRL - Respiratory Exam Respiratory Exam: Decreased Breath Sounds, Rales, Rhonchi - Cardiovascular Exam Cardiovascular Exam: REGULAR RHYTHM, +S1, +S2 - GI/Abdominal Exam GI & Abdominal Exam: Soft, Normal Bowel Sounds. absent: Tenderness - Neurological Exam Neurological Exam: Alert, Normal Gait, Oriented x3 - Psychiatric Exam Psychiatric exam: Anxious - Skin Skin Exam: Dry, Intact, Normal Color, Warm Assessment and Plan (1) COPD exacerbation Status: Acute (2) Acute bronchitis with asthma with acute exacerbation Status: Acute (3) SOB (shortness of breath) Status: Acute (4) Tachyarrhythmia Status: Acute (5) Allergic rhinitis Status: Chronic (6) Anxiety Status: Chronic (7) Steroid-induced diabetes Status: Chronic
[2017-02-07] MEDS: (Lantus) Insulin Glargine, Recombinant SC SCH (22:13)
[2017-02-08] MEDS: Albuterol-Ipratrop 3 mg / 0.5 (3 ml) UD INH SCH ×4 (01:09→19:57)
[2017-02-08] MEDS: MethylPREDNISolone 40 mg Vial IVP SCH ×3 (05:10→21:21)
[2017-02-08] MEDS: Budesonide 0.5 mg/2 ml Inhal Susp UD INH SCH ×2 (08:00→19:57)
[2017-02-08] MEDS: Fluticasone-Salmeterol 250-50mcg Diskus INH SCH ×2 (08:07→19:57)
[2017-02-08] MEDS: (Novolog) Insulin Aspart, Recombinant 100 u/ml 10 ml vial SC SCH ×4 (08:26→22:07)
[2017-02-08] MEDS: Pantoprazole 40 mg EC Tab PO SCH (10:11)
[2017-02-08] MEDS: Enoxaparin 40 mg Syringe SC SCH (10:11)
[2017-02-08] MEDS: Multivitamin With Minerals Tab PO SCH (10:12)
[2017-02-08] MEDS: Lidocaine 5% Patch TD SCH (10:12)
[2017-02-08] MEDS: Promethazine/Cod 6.25mg-10mg/5ml Syr UD PO PRN ×2 (10:16→21:29)
--- NOTE | 2017-02-08 10:18 | CP.PCM.PN ---
Subjective - Date & Time of Evaluation Date of Evaluation: 02/08/17 Time of Evaluation: 08:35 - Subjective Subjective: Pt seen and examined, he is immproving, pt is for DAVINA, i will call [facility] Objective - Vital Signs/Intake and Output Vital Signs (last 24 hours): Temp Pulse Resp BP Pulse Ox 97.5 F L 96 H 20 119/73 100 02/08/17 08:48 02/08/17 08:48 02/08/17 08:48 02/08/17 08:48 02/08/17 08:48 - Medications Medications: Current Medications Albuterol/Ipratropium (Duoneb 3 Mg/0.5 Mg (3 Ml) Ud) 3 ml INH RQ6 [facility] Last Admin: 02/08/17 08:08 Dose: 3 ml Albuterol/Ipratropium (Duoneb 3 Mg/0.5 Mg (3 Ml) Ud) 3 ml INH RSTAT [facility] Stop: 02/08/17 14:01 Alprazolam (Xanax) 0.5 mg PO BID PRN PRN Reason: Anxiety Stop: 02/13/17 15:52 Last Admin: 02/08/17 10:16 Dose: 0.5 mg Budesonide (Pulmicort Respules) 0.5 mg INH RBID [facility] Last Admin: 02/07/17 19:48 Dose: Not Given Enoxaparin Sodium (Lovenox) 40 mg SC DAILY [facility] Last Admin: 02/08/17 10:11 Dose: 40 mg Insulin Aspart (Novolog) 0 unit SC [facility] PRN Reason: Protocol Last Admin: 02/08/17 08:26 Dose: 4 unit Insulin Glargine (Lantus) 16 unit SC HS [facility] Last Admin: 02/07/17 22:13 Dose: 16 u Lidocaine (Lidoderm) 1 ea TD DAILY [facility] Last Admin: 02/08/17 10:12 Dose: 1 ea Metformin HCl (Glucophage) 1,000 mg PO BID [facility] Last Admin: 02/08/17 10:11 Dose: 1,000 mg Methylprednisolone (Solu-Medrol) 40 mg IVP Q8 [facility] Last Admin: 02/08/17 05:10 Dose: 40 mg Montelukast Sodium (Singulair) 10 mg PO [facility] Last Admin: 06/28/17 22:17 Dose: 10 mg Multivitamins/Minerals (Therapeutic-M Tab) 1 tab PO DAILY [facility] Last Admin: 02/08/17 10:12 Dose: 1 tab Pantoprazole Sodium (Protonix Ec Tab) 40 mg PO DAILY [facility] Last Admin: 02/08/17 10:11 Dose: 40 mg Promethazine HCl/Codeine (Phenergan/Codeine Oral Syrup) 5 ml PO Q8 PRN PRN Reason: Cough Last Admin: 02/08/17 10:16 Dose: 5 ml Roflumilast (Daliresp) 500 mcg PO DAILY [facility] Last Admin: 02/07/17 09:39 Dose: 500 mcg Rosuvastatin Calcium (Crestor) 10 mg PO HS [facility] Last Admin: 02/07/17 22:13 Dose: 10 mg Fluticasone/Salmeterol (Advair Diskus 250/50) 1 puff INH RBID [facility] Last Admin: 02/08/17 08:07 Dose: 1 puff - Constitutional Appears: No Acute Distress - Head Exam Head Exam: ATRAUMATIC, NORMAL INSPECTION, NORMOCEPHALIC - Eye Exam Eye Exam: EOMI, Normal appearance, PERRL Pupil Exam: NORMAL ACCOMODATION, PERRL - Respiratory Exam Respiratory Exam: Decreased Breath Sounds, Rhonchi, Wheezes - Cardiovascular Exam Cardiovascular Exam: REGULAR RHYTHM, +S1, +S2. absent: Murmur - GI/Abdominal Exam GI & Abdominal Exam: Soft, Normal Bowel Sounds. absent: Tenderness Assessment and Plan (1) COPD exacerbation Status: Acute (2) Acute bronchitis with asthma with acute exacerbation Status: Acute (3) SOB (shortness of breath) Status: Acute (4) Tachyarrhythmia Status: Acute (5) Allergic rhinitis Status: Chronic (6) Anxiety Status: Chronic (7) Steroid-induced diabetes Status: Chronic
[2017-02-08] MEDS ORDERED: Metoprolol 1 mg/ml Inj IVP ONE (16:54)
[2017-02-08] MEDS: (Lantus) Insulin Glargine, Recombinant SC SCH (22:33)
[2017-02-09] MEDS: Albuterol-Ipratrop 3 mg / 0.5 (3 ml) UD INH SCH ×4 (01:33→20:23)
--- NOTE | 2017-02-09 02:29 | CP.PCM.PN ---
Subjective - Date & Time of Evaluation Date of Evaluation: 02/09/17 Time of Evaluation: 20:00 - Subjective Subjective: Pt seen and examined, less cough, less wheezing, on nebulizer treatment Objective - Vital Signs/Intake and Output Vital Signs (last 24 hours): Temp Pulse Resp BP Pulse Ox 98 F 102 H 20 113/77 98 02/08/17 23:40 02/09/17 00:52 02/08/17 23:40 02/08/17 23:40 02/08/17 23:40 Intake and Output: 02/08/17 02/09/17 18:59 06:59 Intake Total 5000 Balance 5000 - Medications Medications: Current Medications Albuterol/Ipratropium (Duoneb 3 Mg/0.5 Mg (3 Ml) Ud) 3 ml INH RQ6 [facility] Last Admin: 02/09/17 01:33 Dose: 3 ml Alprazolam (Xanax) 0.5 mg PO BID PRN PRN Reason: Anxiety Stop: 02/13/17 15:52 Last Admin: 02/08/17 21:29 Dose: 0.5 mg Budesonide (Pulmicort Respules) 0.5 mg INH RBID [facility] Last Admin: 02/08/17 19:57 Dose: 0.5 mg Enoxaparin Sodium (Lovenox) 40 mg SC DAILY [facility] Last Admin: 02/08/17 10:11 Dose: 40 mg Insulin Aspart (Novolog) 0 unit SC [facility] PRN Reason: Protocol Last Admin: 02/08/17 22:07 Dose: Not Given Insulin Glargine (Lantus) 16 unit SC HS [facility] Last Admin: 02/08/17 22:33 Dose: 16 u Lidocaine (Lidoderm) 1 ea TD DAILY [facility] Last Admin: 02/08/17 10:12 Dose: 1 ea Metformin HCl (Glucophage) 1,000 mg PO BID [facility] Last Admin: 02/08/17 17:43 Dose: 1,000 mg Methylprednisolone (Solu-Medrol) 40 mg IVP Q8 [facility] Last Admin: 02/08/17 21:21 Dose: 40 mg Montelukast Sodium (Singulair) 10 mg PO HS [facility] Last Admin: 02/08/17 21:21 Dose: 10 mg Multivitamins/Minerals (Therapeutic-M Tab) 1 tab PO DAILY [facility] Last Admin: 02/08/17 10:12 Dose: 1 tab Pantoprazole Sodium (Protonix Ec Tab) 40 mg PO DAILY [facility] Last Admin: 02/08/17 10:11 Dose: 40 mg Promethazine HCl/Codeine (Phenergan/Codeine Oral Syrup) 5 ml PO Q8 PRN PRN Reason: Cough Last Admin: 02/08/17 21:29 Dose: 5 ml Roflumilast (Daliresp) 500 mcg PO DAILY [facility] Last Admin: 02/08/17 10:00 Dose: 500 mcg Rosuvastatin Calcium (Crestor) 10 mg PO HS [facility] Last Admin: 02/08/17 21:21 Dose: 10 mg Fluticasone/Salmeterol (Advair Diskus 250/50) 1 puff INH RBID [facility] Last Admin: 02/08/17 19:57 Dose: 1 puff - Constitutional Appears: No Acute Distress - Head Exam Head Exam: ATRAUMATIC, NORMAL INSPECTION, NORMOCEPHALIC - ENT Exam ENT Exam: Mucous Membranes Moist, Normal Exam - Neck Exam Neck Exam: Full ROM, Normal Inspection. absent: Lymphadenopathy - Respiratory Exam Respiratory Exam: Decreased Breath Sounds, Rales, Rhonchi - Cardiovascular Exam Cardiovascular Exam: REGULAR RHYTHM, +S1, +S2. absent: Murmur - GI/Abdominal Exam GI & Abdominal Exam: Soft, Normal Bowel Sounds. absent: Tenderness - Neurological Exam Neurological Exam: Alert, Awake, CN II-XII Intact, Normal Gait, Oriented x3 - Psychiatric Exam Psychiatric exam: Normal Affect, Normal Mood Assessment and Plan (1) COPD exacerbation Status: Acute (2) Acute bronchitis with asthma with acute exacerbation Status: Acute (3) SOB (shortness of breath) Status: Acute (4) Tachyarrhythmia Status: Acute (5) Allergic rhinitis Status: Chronic (6) Anxiety Status: Chronic (7) Steroid-induced diabetes Status: Chronic
[2017-02-09] MEDS: MethylPREDNISolone 40 mg Vial IVP SCH ×3 (05:45→22:48)
[2017-02-09] MEDS: (Novolog) Insulin Aspart, Recombinant 100 u/ml 10 ml vial SC SCH ×4 (08:30→23:17)
[2017-02-09] MEDS: Fluticasone-Salmeterol 250-50mcg Diskus INH SCH ×2 (08:32→20:23)
[2017-02-09] MEDS: Budesonide 0.5 mg/2 ml Inhal Susp UD INH SCH (08:32)
[2017-02-09] MEDS: Pantoprazole 40 mg EC Tab PO SCH (10:04)
[2017-02-09] MEDS: Promethazine/Cod 6.25mg-10mg/5ml Syr UD PO PRN ×2 (10:04→22:47)
[2017-02-09] MEDS: Multivitamin With Minerals Tab PO SCH (10:04)
[2017-02-09] MEDS: Enoxaparin 40 mg Syringe SC SCH (10:04)
[2017-02-09] MEDS: Lidocaine 5% Patch TD SCH (10:05)
[2017-02-09] MEDS: (Lantus) Insulin Glargine, Recombinant SC SCH (22:45)
[2017-02-10] MEDS: Albuterol-Ipratrop 3 mg / 0.5 (3 ml) UD INH SCH ×4 (01:33→20:05)
[2017-02-10] MEDS: MethylPREDNISolone 40 mg Vial IVP SCH ×3 (05:16→22:08)
[2017-02-10] MEDS: (Novolog) Insulin Aspart, Recombinant 100 u/ml 10 ml vial SC SCH ×3 (07:58→22:05)
[2017-02-10] MEDS: Fluticasone-Salmeterol 250-50mcg Diskus INH SCH ×2 (08:22→20:05)
[2017-02-10] MEDS: Budesonide 0.5 mg/2 ml Inhal Susp UD INH SCH ×2 (08:22→20:05)
[2017-02-10] MEDS: Multivitamin With Minerals Tab PO SCH (09:20)
[2017-02-10] MEDS: Enoxaparin 40 mg Syringe SC SCH (09:20)
[2017-02-10] MEDS: Lidocaine 5% Patch TD SCH (09:20)
[2017-02-10] MEDS: Pantoprazole 40 mg EC Tab PO SCH (09:20)
[2017-02-10] MEDS: Promethazine/Cod 6.25mg-10mg/5ml Syr UD PO PRN ×2 (09:28→22:08)
--- NOTE | 2017-02-10 22:04 | CP.PCM.PN ---
Subjective - Date & Time of Evaluation Date of Evaluation: 02/10/17 Time of Evaluation: 15:00 - Subjective Subjective: LESS COUGH,LESS SOB, WHEEZING, NO NAUSEA, HIGH BLOOD SUGARS Objective - Vital Signs/Intake and Output Vital Signs (last 24 hours): Temp Pulse Resp BP Pulse Ox 97.6 F 99 H 20 121/67 99 02/10/17 08:40 02/10/17 08:40 02/10/17 08:40 02/10/17 08:40 02/10/17 08:40 - Medications Medications: Current Medications Albuterol/Ipratropium (Duoneb 3 Mg/0.5 Mg (3 Ml) Ud) 3 ml INH RQ6 [facility] Last Admin: 02/10/17 20:05 Dose: 3 ml Alprazolam (Xanax) 0.5 mg PO BID PRN PRN Reason: Anxiety Stop: 02/13/17 15:52 Last Admin: 02/10/17 09:28 Dose: 0.5 mg Budesonide (Pulmicort Respules) 0.5 mg INH RBID [facility] Last Admin: 02/10/17 20:05 Dose: 0.5 mg Enoxaparin Sodium (Lovenox) 40 mg SC DAILY [facility] Last Admin: 02/10/17 09:20 Dose: 40 mg Insulin Aspart (Novolog) 0 unit SC ACHS [facility] PRN Reason: Protocol Last Admin: 02/10/17 12:26 Dose: 8 unit Insulin Glargine (Lantus) 16 unit SC HS [facility] Last Admin: 02/09/17 22:45 Dose: 16 u Lidocaine (Lidoderm) 1 ea TD DAILY [facility] Last Admin: 02/10/17 09:20 Dose: 1 ea Metformin HCl (Glucophage) 1,000 mg PO BID [facility] Last Admin: 02/10/17 09:20 Dose: 1,000 mg Methylprednisolone (Solu-Medrol) 40 mg IVP Q8 [facility] Last Admin: 02/10/17 13:34 Dose: 40 mg Montelukast Sodium (Singulair) 10 mg PO HS [facility] Last Admin: 02/09/17 22:47 Dose: 10 mg Multivitamins/Minerals (Therapeutic-M Tab) 1 tab PO DAILY [facility] Last Admin: 02/10/17 09:20 Dose: 1 tab Pantoprazole Sodium (Protonix Ec Tab) 40 mg PO DAILY [facility] Last Admin: 02/10/17 09:20 Dose: 40 mg Promethazine HCl/Codeine (Phenergan/Codeine Oral Syrup) 5 ml PO Q8 PRN PRN Reason: Cough Last Admin: 02/10/17 09:28 Dose: 5 ml Roflumilast (Daliresp) 500 mcg PO DAILY [facility] Last Admin: 02/10/17 09:20 Dose: 500 mcg Rosuvastatin Calcium (Crestor) 10 mg PO HS [facility] Last Admin: 02/09/17 22:45 Dose: 10 mg Fluticasone/Salmeterol (Advair Diskus 250/50) 1 puff INH RBID [facility] Last Admin: 02/10/17 20:05 Dose: 1 puff - Constitutional Appears: Non-toxic, No Acute Distress, Chronically Ill - Head Exam Head Exam: ATRAUMATIC, NORMAL INSPECTION, NORMOCEPHALIC - Eye Exam Eye Exam: EOMI, Normal appearance Pupil Exam: NORMAL ACCOMODATION - ENT Exam ENT Exam: Mucous Membranes Moist, Normal Exam - Neck Exam Neck Exam: Normal Inspection - Respiratory Exam Respiratory Exam: Rhonchi, Wheezes, Respiratory Distress - GI/Abdominal Exam GI & Abdominal Exam: Soft, Normal Bowel Sounds - Rectal Exam Rectal Exam: NORMAL INSPECTION - Neurological Exam Neurological Exam: Alert, Awake, CN II-XII Intact, Normal Gait, Oriented x3 Assessment and Plan (1) COPD exacerbation Status: Acute (2) Acute bronchitis with asthma with acute exacerbation Status: Acute (3) SOB (shortness of breath) Status: Acute (4) Tachyarrhythmia Status: Acute (5) Allergic rhinitis Status: Chronic (6) Anxiety Status: Chronic (7) Steroid-induced diabetes Status: Chronic
[2017-02-10] MEDS: (Lantus) Insulin Glargine, Recombinant SC SCH (22:07)
[2017-02-11] MEDS: Albuterol-Ipratrop 3 mg / 0.5 (3 ml) UD INH SCH ×4 (01:17→19:16)
[2017-02-11] MEDS: MethylPREDNISolone 40 mg Vial IVP SCH ×3 (06:08→22:20)
[2017-02-11 08:01] LABS: BASO % 0.1 % (0.0-2.0); HEMOGLOBIN 8.1 g/dL (12.0-18.0); LYMPH # 0.9 K/uL (1.0-4.3); LYMPH % 6.5 % (20.0-40.0); MEAN CELL VOLUME 62.9 fL (80.0-94.0); MEAN CORPUSCULAR HEMOGLOBIN 18.3 pg (27.0-31.0); MEAN CORPUSCULAR HGB CONC 29.2 g/dL (33.0-37.0); MEAN PLATELET VOLUME 8.5 fL (7.2-11.7); MONO # 0.8 K/uL (0.0-0.8); MONO % 5.8 % (0.0-10.0); NEUT # 12.6 K/uL (1.8-7.0); NEUT % 87.6 % (50.0-75.0); NRBC % 0.1 % (0.0-2.0); PLATELET COUNT 329 K/uL (130-400); RED CELL DISTRIBUTION WIDTH 18.2 % (11.5-14.5); WHITE BLOOD COUNT 14.4 K/uL (4.8-10.8)
[2017-02-11] MEDS: Fluticasone-Salmeterol 250-50mcg Diskus INH SCH ×2 (08:11→19:25)
[2017-02-11] MEDS: Budesonide 0.5 mg/2 ml Inhal Susp UD INH SCH ×2 (08:12→19:26)
[2017-02-11 08:37] LABS: ALBUMIN 3.6 g/dL (3.5-5.0)
[2017-02-11 08:40] LABS: GFR AFRICAN-AMERICAN > 60; GFR NON-AFRICAN AMERICAN > 60
[2017-02-11 08:41] LABS: ALB/GLOB RATIO 1.4 (1.0-2.1); ALT/SGPT 28 U/L (21-72); AST/SGOT 14 U/L (17-59); BLOOD UREA NITROGEN 15 mg/dL (9-20); CALCIUM 8.8 mg/dl (8.6-10.4)
[2017-02-11 09:34] LABS: ANISOCYTOSIS SLIGHT; BANDS 1 % (0-2); LYMPHOCYTE 3 % (20-40); MONOCYTE 1 % (0-10); NEUTROPHIL 95 % (50-75); PLATELET ESTIMATE NORMAL (NORMAL); TOTAL CELLS COUNTED 100
[2017-02-11 09:35] LABS: HYPOCHROMIC MODERATE; MICROCYTOSIS SLIGHT; OVALOCYTES MODERATE; POIKILOCYTOSIS SLIGHT; POLYCHROMIC SLIGHT; TEARDROP CELLS SLIGHT
[2017-02-11 09:36] LABS: BURR CELLS SLIGHT
[2017-02-11] MEDS: (Novolog) Insulin Aspart, Recombinant 100 u/ml 10 ml vial SC SCH ×4 (09:40→21:56)
[2017-02-11] MEDS: Lidocaine 5% Patch TD SCH (10:21)
[2017-02-11] MEDS: Enoxaparin 40 mg Syringe SC SCH (10:25)
[2017-02-11] MEDS: Multivitamin With Minerals Tab PO SCH (10:26)
[2017-02-11] MEDS: Pantoprazole 40 mg EC Tab PO SCH (10:27)
[2017-02-11] MEDS: Promethazine/Cod 6.25mg-10mg/5ml Syr UD PO PRN ×2 (11:22→22:19)
[2017-02-11] MEDS: (Lantus) Insulin Glargine, Recombinant SC SCH (22:18)
--- NOTE | 2017-02-11 23:36 | CP.PCM.PN ---
Subjective - Date & Time of Evaluation Date of Evaluation: 02/11/17 Time of Evaluation: 20:40 - Subjective Subjective: Pt seen and examined, less cough, less wheezing, on nebulizer treatment Objective - Vital Signs/Intake and Output Vital Signs (last 24 hours): Temp Pulse Resp BP Pulse Ox 98.2 F 115 H 22 121/70 97 02/11/17 15:24 02/11/17 15:24 02/11/17 15:24 02/11/17 15:24 02/11/17 15:24 - Medications Medications: Current Medications Alprazolam (Xanax) 0.5 mg PO BID PRN PRN Reason: Anxiety Stop: 02/13/17 15:52 Last Admin: 02/11/17 22:20 Dose: 0.5 mg Budesonide (Pulmicort Respules) 0.5 mg INH RBID [facility] Last Admin: 02/11/17 19:26 Dose: 0.5 mg Enoxaparin Sodium (Lovenox) 40 mg SC DAILY [facility] Last Admin: 02/11/17 10:25 Dose: 40 mg Insulin Aspart (Novolog) 0 unit SC ACHS [facility] PRN Reason: Protocol Last Admin: 02/11/17 21:56 Dose: Not Given Insulin Glargine (Lantus) 16 unit SC HS [facility] Last Admin: 02/11/17 22:18 Dose: 16 u Lidocaine (Lidoderm) 1 ea TD DAILY [facility] Last Admin: 02/11/17 10:21 Dose: 1 ea Metformin HCl (Glucophage) 1,000 mg PO BID [facility] Last Admin: 02/11/17 18:49 Dose: 1,000 mg Methylprednisolone (Solu-Medrol) 40 mg IVP Q8 [facility] Last Admin: 02/11/17 22:20 Dose: 40 mg Montelukast Sodium (Singulair) 10 mg PO HS [facility] Last Admin: 02/11/17 22:20 Dose: 10 mg Multivitamins/Minerals (Therapeutic-M Tab) 1 tab PO DAILY [facility] Last Admin: 02/11/17 10:26 Dose: 1 tab Pantoprazole Sodium (Protonix Ec Tab) 40 mg PO DAILY [facility] Last Admin: 02/11/17 10:27 Dose: 40 mg Promethazine HCl/Codeine (Phenergan/Codeine Oral Syrup) 5 ml PO Q8 PRN PRN Reason: Cough Last Admin: 02/11/17 22:19 Dose: 5 ml Roflumilast (Daliresp) 500 mcg PO DAILY [facility] Last Admin: 02/11/17 10:26 Dose: 500 mcg Rosuvastatin Calcium (Crestor) 10 mg PO HS [facility] Last Admin: 02/11/17 22:18 Dose: 10 mg Fluticasone/Salmeterol (Advair Diskus 250/50) 1 puff INH RBID [facility] Last Admin: 02/11/17 19:25 Dose: 1 puff - Labs Labs: 02/11/17 07:47 02/11/17 07:47 - Constitutional Appears: No Acute Distress - Head Exam Head Exam: ATRAUMATIC, NORMAL INSPECTION, NORMOCEPHALIC - Respiratory Exam Respiratory Exam: Decreased Breath Sounds, Rales, Rhonchi, Wheezes - Cardiovascular Exam Cardiovascular Exam: REGULAR RHYTHM, +S1, +S2. absent: Murmur - GI/Abdominal Exam GI & Abdominal Exam: Soft, Normal Bowel Sounds. absent: Tenderness Assessment and Plan (1) COPD exacerbation Status: Acute (2) Acute bronchitis with asthma with acute exacerbation Status: Acute (3) SOB (shortness of breath) Status: Acute (4) Tachyarrhythmia Status: Acute (5) Allergic rhinitis Status: Chronic (6) Anxiety Status: Chronic (7) Steroid-induced diabetes Status: Chronic
[2017-02-12] MEDS: MethylPREDNISolone 40 mg Vial IVP SCH ×2 (05:37→13:02)
[2017-02-12] MEDS: (Novolog) Insulin Aspart, Recombinant 100 u/ml 10 ml vial SC SCH ×4 (08:12→21:22)
[2017-02-12 09:07] VITALS: RESP 20
[2017-02-12 09:23] LABS: HEMOGLOBIN 8.9 g/dL (12.0-18.0); MEAN CELL VOLUME 62.6 fL (80.0-94.0); MEAN CORPUSCULAR HEMOGLOBIN 18.4 pg (27.0-31.0); MEAN CORPUSCULAR HGB CONC 29.4 g/dL (33.0-37.0); MEAN PLATELET VOLUME 8.8 fL (7.2-11.7); RBC 4.84 Mil/uL (4.40-5.90); RED CELL DISTRIBUTION WIDTH 17.5 % (11.5-14.5); WHITE BLOOD COUNT 17.4 K/uL (4.8-10.8)
[2017-02-12 09:37] LABS: BLOOD UREA NITROGEN 17 mg/dL (9-20); GFR AFRICAN-AMERICAN > 60; GFR NON-AFRICAN AMERICAN > 60
[2017-02-12 09:38] LABS: CALCIUM 8.9 mg/dl (8.6-10.4)
[2017-02-12] MEDS: Multivitamin With Minerals Tab PO SCH (09:50)
[2017-02-12] MEDS: Promethazine/Cod 6.25mg-10mg/5ml Syr UD PO PRN ×2 (09:50→22:00)
[2017-02-12] MEDS: Pantoprazole 40 mg EC Tab PO SCH (09:50)
[2017-02-12] MEDS: Lidocaine 5% Patch TD SCH (09:50)
[2017-02-12] MEDS: Enoxaparin 40 mg Syringe SC SCH (09:50)
[2017-02-12] MEDS: Budesonide 0.5 mg/2 ml Inhal Susp UD INH SCH ×2 (14:01→19:56)
[2017-02-12] MEDS: Fluticasone-Salmeterol 250-50mcg Diskus INH SCH ×2 (14:01→19:56)
[2017-02-12] MEDS ORDERED: (Novolog) Insulin Aspart, Recombinant 100 u/ml 10 ml vial SC ONE (17:00)
[2017-02-12] MEDS: (Lantus) Insulin Glargine, Recombinant SC SCH (21:56)
--- NOTE | 2017-02-12 23:49 | CP.PCM.PN ---
Subjective - Date & Time of Evaluation Date of Evaluation: 02/12/17 Time of Evaluation: 10:00 - Subjective Subjective: LESS COUGH,LESS SOB, LESS WHEEZES, NO CHEST PAIN, POSITIVE CHEST CONGESTION Objective - Vital Signs/Intake and Output Vital Signs (last 24 hours): Temp Pulse Resp BP Pulse Ox 98 F 106 H 20 118/68 98 02/12/17 15:40 02/12/17 23:23 02/12/17 15:40 02/12/17 15:40 02/12/17 15:40 Intake and Output: 02/12/17 02/13/17 18:59 06:59 Intake Total 450 300 Balance 450 300 - Medications Medications: Current Medications Alprazolam (Xanax) 0.5 mg PO BID PRN PRN Reason: Anxiety Stop: 02/13/17 15:52 Last Admin: 02/12/17 22:00 Dose: 0.5 mg Budesonide (Pulmicort Respules) 0.5 mg INH RBID [facility] Last Admin: 02/12/17 19:56 Dose: 0.5 mg Enoxaparin Sodium (Lovenox) 40 mg SC DAILY [facility] Last Admin: 02/12/17 09:50 Dose: 40 mg Insulin Aspart (Novolog) 0 unit SC [facility] PRN Reason: Protocol Last Admin: 02/12/17 21:22 Dose: Not Given Insulin Glargine (Lantus) 16 unit SC HS [facility] Last Admin: 02/12/17 21:56 Dose: 16 u Lidocaine (Lidoderm) 1 ea TD DAILY [facility] Last Admin: 02/12/17 09:50 Dose: 1 ea Metformin HCl (Glucophage) 1,000 mg PO BID [facility] Last Admin: 02/12/17 17:45 Dose: 1,000 mg Methylprednisolone (Solu-Medrol) 40 mg IVP DAILY [facility] Montelukast Sodium (Singulair) 10 mg PO HS [facility] Last Admin: 02/12/17 21:56 Dose: 10 mg Multivitamins/Minerals (Therapeutic-M Tab) 1 tab PO DAILY [facility] Last Admin: 02/12/17 09:50 Dose: 1 tab Pantoprazole Sodium (Protonix Ec Tab) 40 mg PO DAILY [facility] Last Admin: 02/12/17 09:50 Dose: 40 mg Promethazine HCl/Codeine (Phenergan/Codeine Oral Syrup) 5 ml PO Q8 PRN PRN Reason: Cough Last Admin: 02/12/17 09:50 Dose: 5 ml Roflumilast (Daliresp) 500 mcg PO DAILY [facility] Last Admin: 02/12/17 09:50 Dose: 500 mcg Rosuvastatin Calcium (Crestor) 10 mg PO HS [facility] Last Admin: 02/12/17 21:56 Dose: 10 mg Fluticasone/Salmeterol (Advair Diskus 250/50) 1 puff INH RBID [facility] Last Admin: 02/12/17 19:56 Dose: 1 puff - Labs Labs: 02/12/17 09:14 02/12/17 09:22 - Constitutional Appears: Non-toxic, No Acute Distress, Chronically Ill - Head Exam Head Exam: ATRAUMATIC, NORMAL INSPECTION, NORMOCEPHALIC - Eye Exam Eye Exam: EOMI, Normal appearance - ENT Exam ENT Exam: Mucous Membranes Moist, Normal Exam - Respiratory Exam Respiratory Exam: Decreased Breath Sounds, Prolonged Expiratory Phase, Rales, Rhonchi, Wheezes - Cardiovascular Exam Cardiovascular Exam: Tachycardia, REGULAR RHYTHM, +S1, +S2 - GI/Abdominal Exam GI & Abdominal Exam: Normal Bowel Sounds - Extremities Exam Extremities Exam: Normal Capillary Refill - Neurological Exam Neurological Exam: Alert, Awake, CN II-XII Intact, Normal Gait, Oriented x3 Assessment and Plan (1) COPD exacerbation Assessment & Plan: TAPER STEROIDS Status: Acute (2) Acute bronchitis with asthma with acute exacerbation Status: Acute (3) SOB (shortness of breath) Status: Acute (4) Tachyarrhythmia Status: Acute (5) Allergic rhinitis Status: Chronic (6) Anxiety Status: Chronic (7) Steroid-induced diabetes Status: Chronic
[2017-02-13 01:29] VITALS: O2SAT 100
[2017-02-13] MEDS: Budesonide 0.5 mg/2 ml Inhal Susp UD INH SCH (07:21)
[2017-02-13] MEDS: (Novolog) Insulin Aspart, Recombinant 100 u/ml 10 ml vial SC SCH ×2 (08:31→12:32)
[2017-02-13 08:43] VITALS: BP 114/73; PULSE 97; TEMP 97
[2017-02-13] MEDS: Lidocaine 5% Patch TD SCH (09:08)
[2017-02-13] MEDS: Multivitamin With Minerals Tab PO SCH (09:12)
[2017-02-13] MEDS: Promethazine/Cod 6.25mg-10mg/5ml Syr UD PO PRN (09:12)
[2017-02-13] MEDS: Pantoprazole 40 mg EC Tab PO SCH (09:12)
[2017-02-13] MEDS ORDERED: MethylPREDNISolone 40 mg Vial IVP SCH (10:00)
[2017-02-13] MEDS: Enoxaparin 40 mg Syringe SC SCH (10:17)
[2017-02-13] MEDS: Fluticasone-Salmeterol 250-50mcg Diskus INH SCH (10:28)
--- NOTE | 2017-02-13 21:46 | CP.PCM.DIS ---
Provider - Provider Date of Admission: 02/08/17 11:00 Attending physician: Hal Garcia MD Time Spent in preparation of Discharge (in minutes): 52 Diagnosis - Discharge Diagnosis (1) COPD exacerbation Status: Acute Priority: Medium (2) Acute bronchitis with asthma with acute exacerbation Status: Acute (3) SOB (shortness of breath) Status: Acute (4) Tachyarrhythmia Status: Acute (5) Allergic rhinitis Status: Chronic Priority: Medium (6) Anxiety Status: Chronic (7) Steroid-induced diabetes Status: Chronic Hospital Course - Lab Results Lab Results: Most Recent Lab Values WBC 17.4 K/uL (4.8-10.8) H 02/12/17 09:14 RBC 4.84 Mil/uL (4.40-5.90) 02/12/17 09:14 Hgb 8.9 g/dL (12.0-18.0) L 02/12/17 09:14 Hct 30.3 % (35.0-51.0) L 02/12/17 09:14 MCV 62.6 fL (80.0-94.0) L 02/12/17 09:14 MCH 18.4 pg (27.0-31.0) L 02/12/17 09:14 MCHC 29.4 g/dL (33.0-37.0) L 02/12/17 09:14 RDW 17.5 % (11.5-14.5) H 02/12/17 09:14 Plt Count 341 K/uL (130-400) 02/12/17 09:14 MPV 8.8 fL (7.2-11.7) 02/12/17 09:14 Neut % (Auto) 87.6 % (50.0-75.0) H 02/11/17 07:47 Lymph % (Auto) 6.5 % (20.0-40.0) L 02/11/17 07:47 Carbon % (Auto) 5.8 % (0.0-10.0) 02/11/17 07:47 Eos % (Auto) 0.0 % (0.0-4.0) 02/11/17 07:47 Baso % (Auto) 0.1 % (0.0-2.0) 02/11/17 07:47 Neut # 12.6 K/uL (1.8-7.0) H 02/11/17 07:47 Lymph # 0.9 K/uL (1.0-4.3) L 02/11/17 07:47 Carbon # 0.8 K/uL (0.0-0.8) 02/11/17 07:47 Eos # 0.0 K/uL (0.0-0.7) 02/11/17 07:47 Baso # 0.0 K/uL (0.0-0.2) 02/11/17 07:47 Neutrophils % (Manual) 95 % (50-75) H 02/11/17 07:47 Band Neutrophils % 1 % (0-2) 02/11/17 07:47 Lymphocytes % (Manual) 3 % (20-40) L 02/11/17 07:47 Monocytes % (Manual) 1 % (0-10) 02/11/17 07:47 Platelet Estimate Normal (NORMAL) 02/11/17 07:47 Polychromasia Slight 02/11/17 07:47 Hypochromasia (manual) Moderate 02/11/17 07:47 Poikilocytosis (manual Slight 02/11/17 07:47 Anisocytosis (manual) Slight 02/11/17 07:47 Microcytosis (manual) Slight 02/11/17 07:47 Tear Drop Cells Slight 02/11/17 07:47 Ovalocytes Moderate 02/11/17 07:47 Eva Cells Slight 02/11/17 07:47 Sodium 136 mmol/L (132-148) 02/12/17 09:22 Potassium 4.0 mmol/L (3.6-5.2) 02/12/17 09:22 Chloride 94 mmol/L (98-107) L 02/12/17 09:22 Carbon Dioxide 26 mmol/L (22-30) 02/12/17 09:22 Anion Gap 19 (10-20) 02/12/17 09:22 BUN 17 mg/dL (9-20) 02/12/17 09:22 Creatinine 0.6 MG/DL (0.8-1.5) L 02/12/17 09:22 Est GFR ( Amer) > 60 02/12/17 09:22 Est GFR (Non-Af Amer) > 60 02/12/17 09:22 POC Glucose (mg/dL) 219 mg/dL (65-110) H 02/13/17 11:44 Random Glucose 284 mg/dL (75-110) H 02/12/17 09:22 Calcium 8.9 mg/dl (8.6-10.4) 02/12/17 09:22 Total Bilirubin 0.4 mg/dL (0.2-1.3) 02/11/17 07:47 AST 14 U/L (17-59) L D 02/11/17 07:47 ALT 28 U/L (21-72) 02/11/17 07:47 Alkaline Phosphatase 138 U/L (38-126) H 02/11/17 07:47 Troponin I < 0.0120 ng/mL (0.00-0.120) 02/06/17 11:52 Total Protein 6.1 g/dL (6.3-8.3) L 02/11/17 07:47 Albumin 3.6 g/dL (3.5-5.0) 02/11/17 07:47 Globulin 2.6 gm/dL (2.2-3.9) 02/11/17 07:47 Albumin/Globulin Ratio 1.4 (1.0-2.1) 02/11/17 07:47 - Hospital Course Hospital Course: Pt seen and examied, excerbeartion of COPD improving, discahrge home on tapering doses of steroids Discharge Exam - Head Exam Head Exam: ATRAUMATIC, NORMAL INSPECTION, NORMOCEPHALIC - Eye Exam Eye Exam: EOMI, Normal appearance, PERRL Pupil Exam: NORMAL ACCOMODATION, PERRL - ENT Exam ENT Exam: Mucous Membranes Moist - Respiratory Exam Respiratory Exam: Clear to PA & Lateral - Cardiovascular Exam Cardiovascular Exam: REGULAR RHYTHM, +S1, +S2 - GI/Abdominal Exam GI & Abdominal Exam: Normal Bowel Sounds - Rectal Exam Rectal Exam: Deferred Discharge Plan - Follow Up Plan Condition: STABLE Disposition: HOME/ ROUTINE Instructions: Prednisone (By mouth), Heart Failure (DC), Heart Healthy Diet (DC ), COPD (Chronic Obstructive Pulmonary Disease) (DC) Additional Instructions: Follow up with Dr. Hal Garcia in 1 week. Take Prednisone 20 mg once a day for 4 days, then 10mg once a day for 4 days and 5 mg once a day for 30 days. If symptoms persist proceed to the ER immediately. Referrals: Hal Garcia MD [Staff Provider] -
== END 2017-02-13 14:53 | disposition home or self-care (01) | DRG 191 ==
LOC: C.ER 09:38 → C.9E 12:14 → C.6T 14:46 → OBSVTOIN 02-08 11:00
PROVIDERS: ADMIT Internal Medicine; ATTEND Internal Medicine
PROC: 5A09557 Assistance with Respiratory Ventilation, Greater than 96 Consecutive Hours, Continuous Positive Airway Pressure (ICD-10-PCS; principal; 2017-02-08)
DX: J44.0 Chronic obstructive pulmonary disease with (acute) lower respiratory infection (principal); I13.0 Hypertensive heart and chronic kidney disease with heart failure and stage 1 through stage 4 chronic kidney disease, or unspecified chronic kidney disease; I50.9 Heart failure, unspecified; E09.22 Drug or chemical induced diabetes mellitus with diabetic chronic kidney disease; J45.901 Unspecified asthma with (acute) exacerbation; J44.1 Chronic obstructive pulmonary disease with (acute) exacerbation; M17.0 Bilateral primary osteoarthritis of knee; M47.9 Spondylosis, unspecified; E78.00 Pure hypercholesterolemia, unspecified; N18.9 Chronic kidney disease, unspecified; G47.30 Sleep apnea, unspecified; Z99.81 Dependence on supplemental oxygen; Z87.891 Personal history of nicotine dependence; J20.9 Acute bronchitis, unspecified; R00.0 Tachycardia, unspecified; F41.1 Generalized anxiety disorder; T38.0X5A Adverse effect of glucocorticoids and synthetic analogues, initial encounter

== ENCOUNTER 2017-03-02 22:12 | Inpatient (IN) | payer MEDICARE ==
[2017-03-02 22:13] VITALS: BMI 26.3
[2017-03-02] MEDS ORDERED: Sodium Chloride 0.9% 1,000 ML IV ONE (22:37)
[2017-03-02] MEDS ORDERED: Albuterol-Ipratrop 3 mg / 0.5 (3 ml) UD INH STA (22:38)
[2017-03-02] MEDS ORDERED: Sodium Chloride 0.9% 1,000 ML ONE (22:50)
[2017-03-02 22:54] LABS: BASO # 0.4 K/uL (0.0-0.2); BASO % 2.7 % (0.0-2.0); EOS # 0.5 K/uL (0.0-0.7); EOS % 3.9 % (0.0-4.0); HEMATOCRIT 30.1 % (35.0-51.0); LYMPH # 2.7 K/uL (1.0-4.3); LYMPH % 21.1 % (20.0-40.0); MEAN CELL VOLUME 60.9 fL (80.0-94.0); MEAN CORPUSCULAR HEMOGLOBIN 18.1 pg (27.0-31.0); MEAN CORPUSCULAR HGB CONC 29.8 g/dL (33.0-37.0); MEAN PLATELET VOLUME 8.5 fL (7.2-11.7); MONO # 1.1 K/uL (0.0-0.8); MONO % 8.3 % (0.0-10.0); RED CELL DISTRIBUTION WIDTH 18.8 % (11.5-14.5); WHITE BLOOD COUNT 12.8 K/uL (4.8-10.8)
[2017-03-02 23:04] LABS: CHLORIDE 94 mmol/L (98-107); SODIUM 136 mmol/L (132-148)
[2017-03-02 23:06] LABS: AST/SGOT 31 U/L (17-59); BILIRUBIN,TOTAL 0.3 mg/dL (0.2-1.3); CARBON DIOXIDE 23 mmol/L (22-30); GFR AFRICAN-AMERICAN > 60
[2017-03-02 23:07] LABS: ALB/GLOB RATIO 1.3 (1.0-2.1); ALKALINE PHOSPHATASE 145 U/L (38-126); ALT/SGPT 44 U/L (21-72); BLOOD UREA NITROGEN 5 mg/dL (9-20); CALCIUM 9.2 mg/dl (8.6-10.4); GLUCOSE,RANDOM 205 mg/dL (75-110); TOTAL PROTEIN 7.3 g/dL (6.3-8.3)
--- NOTE | 2017-03-02 23:12 | C.PDOC ---
History Of Present Illness 66 year old male with Hx of COPD who presents to the ER with a complaint of SOB since this morning that has worsened tonight. Denies pain or fever. Chief Complaint (Nursing): Respiratory Distress History Per: Patient History/Exam Limitations: no limitations Onset/Duration Of Symptoms: Hrs Current Symptoms Are (Timing): Still Present Initiating Event: Other (Not known) Quality: denies: "Pain" Associated Symptoms: denies: Fever, Chest Pain Recent travel outside of the [place]: No Past Medical History Reviewed: Historical Data, Nursing Documentation, Vital Signs Vital Signs: Last Vital Signs Temp 98.4 F 03/02/17 22:21 Pulse 120 H 03/03/17 00:14 Resp 20 03/03/17 00:14 BP 120/75 03/03/17 00:14 Pulse Ox 100 03/03/17 00:14 - Medical History PMH: Anxiety, Arthritis (BACK; KNEES), Asthma, Bronchitis, CHF, COPD, Diabetes, Emphysema, HTN, Hypercholesterolemia, Pneumonia, Chronic Kidney Disease, Sleep Apnea - [facility] Procedures ASSISTANCE WITH RESPIRATORY VENTILATION, 24-96 HRS, CPAP (01/24/17) ASSISTANCE WITH RESPIRATORY VENTILATION, <24 HRS, CPAP (07/08/16) ASSISTANCE WITH RESPIRATORY VENTILATION, >96 HRS, CPAP (02/08/17) CONTINUOUS INVASIVE MECHANICAL VENTILATION <96 CONSEC HRS (11/29/14) INFLUENZA VACCINATION (06/02/14) INSERT ENDOTRACHEAL TUBE (11/29/14) LARYGNOSCOPY AND OTH TRACHEOSCOPY (04/18/15) MEASURE OF CARDIAC SAMPL & PRESSURE, L HEART, PERC APPROACH (12/01/15) NON-INVASIVE MECHANICAL VENTILATION (04/18/15) Family History: States: Unknown Family Hx - Social History Hx Tobacco Use: Yes (8 years ppd smoker. quit 1.5 years ago) Hx Alcohol Use: No Hx Substance Use: No - Immunization History Hx Tetanus Toxoid Vaccination: Yes Hx Influenza Vaccination: Yes Hx Pneumococcal Vaccination: Yes Review Of Systems Constitutional: Negative for: Fever Cardiovascular: Negative for: Chest Pain Respiratory: Positive for: Shortness of Breath. Negative for: Cough Gastrointestinal: Negative for: Abdominal Pain Physical Exam - Physical Exam Appears: Non-toxic Skin: Normal Color, Warm, Dry Head: Atraumatic, Normacephalic Oral Mucosa: Moist Chest: Symmetrical, No Tenderness Cardiovascular: Rhythm Regular (Tachycardia), No Murmur Respiratory: Decreased Breath Sounds, No Rales, No Rhonchi, Wheezing (Occasional ), Other (Dyspenic) Gastrointestinal/Abdominal: Soft, No Tenderness Neurological/Psych: Oriented x3, Normal Speech, Normal Cognition ED Course And Treatment - Laboratory Results Result Diagrams: 03/02/17 22:47 03/02/17 22:47 O2 Sat by Pulse Oximetry: 98 (Room air) Pulse Ox Interpretation: Normal Progress Note: EKG, blood work, and CXR ordered. Nebulizer treatment administered. Patient placed on bipap. Disposition Discussed With : Irish Faulkner Doctor Will See Patient In The: Hospital Counseled Patient/Family Regarding: Diagnosis - Disposition Disposition: HOSPITALIZED Disposition Time: 23:59 Condition: STABLE - Clinical Impression Clinical Impression: COPD exacerbation - Scribe Statement The provider has reviewed the documentation as recorded by the Scribilya Hackett All medical record entries made by the Scribe were at my direction and personally dictated by me. I have reviewed the chart and agree that the record accurately reflects my personal performance of the history, physical exam, medical decision making, and the department course for this patient. I have also personally directed, reviewed, and agree with the discharge instructions and disposition.
[2017-03-03] MEDS ORDERED: Albuterol-Ipratrop 3 mg / 0.5 (3 ml) UD INH STA (02:20)
[2017-03-03] MEDS: MethylPREDNISolone 40 mg Vial IVP SCH ×2 (09:55→21:26)
[2017-03-03] MEDS: Enoxaparin 40 mg Syringe SC SCH (09:55)
[2017-03-03] MEDS: Pantoprazole 40 mg EC Tab PO SCH (09:55)
[2017-03-03] MEDS ORDERED: ARFORMOTEROL IH SCH ×2 (10:00)
--- NOTE | 2017-03-03 10:21 | RAD ---
PROCEDURE: CHEST RADIOGRAPH, 1 VIEW HISTORY: SOB COMPARISON: Comparison chest 02/06/2017 FINDINGS: LUNGS: Minor atelectasis and or scarring left lung base/CP angle region. . PLEURA: No pneumothorax or pleural fluid seen. CARDIOVASCULAR: Normal. OSSEOUS STRUCTURES: No significant abnormalities. VISUALIZED UPPER ABDOMEN: Normal. OTHER FINDINGS: None. IMPRESSION: Minor atelectasis and or scarring left lung base CP angle region
[2017-03-03] MEDS: (Novolin R) Insulin Human Regular 100 units/ml vial SC SCH ×4 (12:48→21:27)
--- NOTE | 2017-03-03 15:36 | CP.PCM.PN ---
Subjective - Date & Time of Evaluation Date of Evaluation: 03/03/17 Time of Evaluation: 15:25 - Subjective Subjective: HOUSE RESIDENT NOTE Nursing paged this resident for pt reporting chest pain and tachycardia. Pt found lying in bed on BiPap. Pt reporting non-radiating left sided chest pain, he describes it as a sharp pain, that comes and goes, lasting for "a few minutes each time." He rates the pain as 2/3 of 10. The pain is made worse by coughing. He denies reflux symptoms. Nursing reports respiratory treatment approximately an hour ago - too long to increase HR. Initial vitals at bedside: T 97.4, BP: 126/75, HR 122, RR 24, O2 BiPap 40% FiO2 EMR shows EKG last night showing sinus tachcardia. No St/T wave changes noted. LAKESHA panel negative x 1 last night. Review of chart shows pt tachy since admission. Pt has elevated WBC, with no documented fever. CXR from admission last night showing minor atelectasis and/or scarring left lung base CP angle region. PE: Gen Pt lying in bed, on bipap mask CV: Tachy, S1, S2, No S4 appreciated Resp: Wheezes, No accessory muscle use, no distress on bipap Psych: Hx of anxiety but denies presently Plan: Lakesha panel EKG Objective - Vital Signs/Intake and Output Vital Signs (last 24 hours): Temp Pulse Resp BP Pulse Ox 97.6 F 103 H 20 114/72 99 03/03/17 08:00 03/03/17 08:00 03/03/17 08:00 03/03/17 08:00 03/03/17 08:00 Intake and Output: 03/03/17 03/03/17 06:59 18:59 Intake Total 890 Output Total 1025 Balance -135 - Medications Medications: Current Medications Albuterol/Ipratropium (Duoneb 3 Mg/0.5 Mg (3 Ml) Ud) 3 ml INH RQ6 [facility] Alprazolam (Xanax) 0.5 mg PO BID PRN PRN Reason: Anxiety Stop: 03/10/17 08:32 Last Admin: 03/03/17 09:56 Dose: 0.5 mg Enoxaparin Sodium (Lovenox) 40 mg SC DAILY [facility] Last Admin: 03/03/17 09:55 Dose: 40 mg Home Med (Arformoterol Tartrate [Brovana]) 1 mauricio IH BID [facility] Ceftriaxone Sodium 1 gm/ (Sodium Chloride) 100 mls @ 100 mls/hr IVPB DAILY [facility] Last Admin: 03/03/17 11:34 Dose: 100 mls/hr Insulin Glargine (Lantus) 16 unit SC HS [facility] Insulin Human Regular (Novolin R) 0 unit SC ACHS [facility] PRN Reason: Protocol Last Admin: 03/03/17 12:48 Dose: 4 unit Metformin HCl (Glucophage) 1,000 mg PO BID [facility] Last Admin: 03/03/17 09:55 Dose: 1,000 mg Methylprednisolone (Solu-Medrol) 40 mg IVP Q12 [facility] Last Admin: 03/03/17 09:55 Dose: 40 mg Montelukast Sodium (Singulair) 10 mg PO HS [facility] Pantoprazole Sodium (Protonix Ec Tab) 40 mg PO DAILY [facility] Last Admin: 03/03/17 09:55 Dose: 40 mg Promethazine HCl/Codeine (Phenergan/Codeine Oral Syrup) 5 ml PO Q8 PRN PRN Reason: Cough Rosuvastatin Calcium (Crestor) 10 mg PO HS [facility] Fluticasone/Salmeterol (Advair Diskus 250/50) 1 puff INH RBID [facility]
[2017-03-03] MEDS: Fluticasone-Salmeterol 250-50mcg Diskus INH SCH (19:50)
[2017-03-03] MEDS: Albuterol-Ipratrop 3 mg / 0.5 (3 ml) UD INH SCH (19:50)
--- NOTE | 2017-03-03 20:25 | CP.PCM.CON ---
History of Present Illness - History of Present Illness History of Present Illness: reason for consultation: shortness of breath 66-year-old male with advanced COPD, respiratory failure on Trilogy at home presented with worsening shortness of breath started last night. Also complaining off sharp chest pain sharp associated with tachycardia today. Patient was placed on BiPAP. Patient states breathing is slightly better Review of Systems - Review of Systems All systems: reviewed and no additional remarkable complaints except (shortness of breath, cough and chest pain) Past Patient History - Infectious Disease Hx of Infectious Diseases: None - Past Medical History & Family History Past Medical History?: Yes - Past Social History Smoking Status: Former Smoker - CARDIAC Hx Cardiac Disorders: Yes Hx Congestive Heart Failure: Yes Hx Hypercholesterolemia: Yes Hx Hypertension: Yes - PULMONARY Hx Respiratory Disorders: Yes Hx Asthma: Yes Hx Bronchitis: Yes Hx Chronic Obstructive Pulmonary Disease (COPD): Yes Hx Emphysema: Yes Hx Pneumonia: Yes Hx Sleep Apnea: Yes - NEUROLOGICAL Hx Neurological Disorder: No - HEENT Hx HEENT Problems: Yes Hx Cataracts: Yes (left cataract removed, r cataract) Other/Comment: wears eyeglasses for distance - RENAL Hx Chronic Kidney Disease: Yes - ENDOCRINE/METABOLIC Hx Endocrine Disorders: Yes Hx Diabetes Mellitus Type 2: Yes - HEMATOLOGICAL/ONCOLOGICAL Hx Blood Disorders: No - INTEGUMENTARY Hx Dermatological Problems: No - MUSCULOSKELETAL/RHEUMATOLOGICAL Hx Arthritis: Yes (BACK; KNEES) Hx Falls: No - GASTROINTESTINAL Hx Gastrointestinal Disorders: No - GENITOURINARY/GYNECOLOGICAL Hx Genitourinary Disorders: No - PSYCHIATRIC Hx Psychophysiologic Disorder: Yes Hx Anxiety: Yes Hx Substance Use: No - SURGICAL HISTORY Hx Surgeries: Yes Hx Cardiac Catheterization: Yes (11/2015) - ANESTHESIA Hx Anesthesia: Yes Hx Anesthesia Reactions: Yes (pt dont know. aware) Hx Malignant Hyperthermia: No Meds Allergies/Adverse Reactions: Allergies Allergy/AdvReac Type Severity Reaction Status Date / Time acetaminophen [From Tylenol] Allergy RASH Verified 03/02/17 22:26 FISH Allergy SWELLING Verified 03/02/17 22:26 shrimp Allergy SHORTNESS Verified 03/02/17 22:26 OF BREATH - Medications Medications: Current Medications Albuterol/Ipratropium (Duoneb 3 Mg/0.5 Mg (3 Ml) Ud) 3 ml INH RQ6 [facility] Alprazolam (Xanax) 0.5 mg PO BID PRN PRN Reason: Anxiety Stop: 03/10/17 08:32 Last Admin: 03/03/17 09:56 Dose: 0.5 mg Enoxaparin Sodium (Lovenox) 40 mg SC DAILY [facility] Last Admin: 03/03/17 09:55 Dose: 40 mg Home Med (Arformoterol Tartrate [Brovana]) 1 mauricio IH BID [facility] Ceftriaxone Sodium 1 gm/ (Sodium Chloride) 100 mls @ 100 mls/hr IVPB DAILY [facility] Last Admin: 03/03/17 11:34 Dose: 100 mls/hr Insulin Glargine (Lantus) 16 unit SC HS [facility] Insulin Human Regular (Novolin R) 0 unit SC ACHS [facility] PRN Reason: Protocol Last Admin: 03/03/17 18:11 Dose: 3 unit Metformin HCl (Glucophage) 1,000 mg PO BID [facility] Last Admin: 03/03/17 17:47 Dose: 1,000 mg Methylprednisolone (Solu-Medrol) 40 mg IVP Q12 [facility] Last Admin: 03/03/17 09:55 Dose: 40 mg Montelukast Sodium (Singulair) 10 mg PO HS [facility] Pantoprazole Sodium (Protonix Ec Tab) 40 mg PO DAILY [facility] Last Admin: 03/03/17 09:55 Dose: 40 mg Promethazine HCl/Codeine (Phenergan/Codeine Oral Syrup) 5 ml PO Q8 PRN PRN Reason: Cough Rosuvastatin Calcium (Crestor) 10 mg PO HS [facility] Fluticasone/Salmeterol (Advair Diskus 250/50) 1 puff INH RBID [facility] Physical Exam - Head Exam Head Exam: ATRAUMATIC, NORMOCEPHALIC - Eye Exam Eye Exam: Normal appearance - ENT Exam ENT Exam: Mucous Membranes Moist - Neck Exam Neck exam: Positive for: Normal Inspection - Respiratory Exam Respiratory Exam: Decreased Breath Sounds - Cardiovascular Exam Cardiovascular Exam: Tachycardia, REGULAR RHYTHM Results - Vital Signs Recent Vital Signs: Last Vital Signs Temp 97.4 F L 03/03/17 15:00 Pulse 124 H 03/03/17 16:00 Resp 17 03/03/17 15:00 BP 116/75 03/03/17 15:00 Pulse Ox 100 03/03/17 15:00 - Labs Result Diagrams: 03/02/17 22:47 03/02/17 22:47 Labs: Laboratory Results - last 24 hr 03/03/17 03/03/17 03/03/17 09:02 11:21 16:46 POC Glucose (mg/dL) 346 H 345 H 271 H Total Creatine Kinase CK-MB (Mass) Troponin I, Quant 03/03/17 17:00 POC Glucose (mg/dL) Total Creatine Kinase 81 CK-MB (Mass) 3.02 Troponin I, Quant < 0.0120 Assessment & Plan (1) Acute exacerbation of chronic obstructive pulmonary disease (COPD) Status: Acute Priority: High Comment: continue BiPAP as needed. ccontinue IV steroids, nebulizer treatment. Cardiology evaluation (2) Respiratory distress Status: Acute
[2017-03-03] MEDS: Promethazine/Cod 6.25mg-10mg/5ml Syr UD PO PRN (21:33)
--- NOTE | 2017-03-03 22:12 | CP.PCM.HP ---
History of Present Illness - History of Present Illness History of Present Illness: Initialization Date: 03/02/17 23:11 History Of Present Illness 66 year old male with Hx of COPD who presents to the ER with a complaint of SOB since this morning that has worsened tonight. Denies pain or fever. Chief Complaint (Nursing): Respiratory Distress History Per: Patient History/Exam Limitations: no limitations Onset/Duration Of Symptoms: Hrs Current Symptoms Are (Timing): Still Present Initiating Event: Other (Not known) Quality: denies: "Pain" Associated Symptoms: denies: Fever, Chest Pain Recent travel outside of the [place]: No Past Medical History Reviewed: Historical Data, Nursing Documentation, Vital Signs Vital Signs: Last Vital Signs Temp 98.4 F 03/02/17 22:21 Pulse 120 H 03/03/17 00:14 Resp 20 03/03/17 00:14 BP 120/75 03/03/17 00:14 Pulse Ox 100 03/03/17 00:14 - Medical History PMH: Anxiety, Arthritis (BACK; KNEES), Asthma, Bronchitis, CHF, COPD, Diabetes, Emphysema, HTN, Hypercholesterolemia, Pneumonia, Chronic Kidney Disease, Sleep Apnea Present on Admission - Present on Admission Any Indicators Present on Admission: No Review of Systems - Constitutional Constitutional: As Per HPI - EENT Eyes: As Per HPI Ears: As Per HPI Nose/Mouth/Throat: As Per HPI - Cardiovascular Cardiovascular: As Per HPI - Respiratory Respiratory: As Per HPI, Cough, Dyspnea, Wheezing, Chest Congestion - Genitourinary Genitourinary: As Per HPI - Musculoskeletal Musculoskeletal: As Per HPI - Integumentary Integumentary: As Per HPI - Neurological Neurological: As Per HPI - Psychiatric Psychiatric: As Per HPI - Endocrine Endocrine: As Per HPI - Hematologic/Lymphatic Hematologic: As Per HPI Past Patient History - Infectious Disease Hx of Infectious Diseases: None - Past Medical History & Family History Past Medical History?: Yes - Past Social History Smoking Status: Former Smoker - CARDIAC Hx Cardiac Disorders: Yes Hx Congestive Heart Failure: Yes Hx Hypercholesterolemia: Yes Hx Hypertension: Yes - PULMONARY Hx Respiratory Disorders: Yes Hx Asthma: Yes Hx Bronchitis: Yes Hx Chronic Obstructive Pulmonary Disease (COPD): Yes Hx Emphysema: Yes Hx Pneumonia: Yes Hx Sleep Apnea: Yes - NEUROLOGICAL Hx Neurological Disorder: No - HEENT Hx HEENT Problems: Yes Hx Cataracts: Yes (left cataract removed, r cataract) Other/Comment: wears eyeglasses for distance - RENAL Hx Chronic Kidney Disease: Yes - ENDOCRINE/METABOLIC Hx Endocrine Disorders: Yes Hx Diabetes Mellitus Type 2: Yes - HEMATOLOGICAL/ONCOLOGICAL Hx Blood Disorders: No - INTEGUMENTARY Hx Dermatological Problems: No - MUSCULOSKELETAL/RHEUMATOLOGICAL Hx Arthritis: Yes (BACK; KNEES) Hx Falls: No - GASTROINTESTINAL Hx Gastrointestinal Disorders: No - GENITOURINARY/GYNECOLOGICAL Hx Genitourinary Disorders: No - PSYCHIATRIC Hx Psychophysiologic Disorder: Yes Hx Anxiety: Yes Hx Substance Use: No - SURGICAL HISTORY Hx Surgeries: Yes Hx Cardiac Catheterization: Yes (11/2015) - ANESTHESIA Hx Anesthesia: Yes Hx Anesthesia Reactions: Yes (pt dont know. aware) Hx Malignant Hyperthermia: No Meds Allergies/Adverse Reactions: Allergies Allergy/AdvReac Type Severity Reaction Status Date / Time acetaminophen [From Tylenol] Allergy RASH Verified 03/02/17 22:26 FISH Allergy SWELLING Verified 03/02/17 22:26 shrimp Allergy SHORTNESS Verified 03/02/17 22:26 OF BREATH Physical Exam - Constitutional Appears: Well - Head Exam Head Exam: ATRAUMATIC, NORMAL INSPECTION, NORMOCEPHALIC - Eye Exam Eye Exam: EOMI, Normal appearance, PERRL Pupil Exam: NORMAL ACCOMODATION, PERRL - ENT Exam ENT Exam: Mucous Membranes Moist, Normal Exam - Neck Exam Neck exam: Positive for: Normal Inspection - Respiratory Exam Respiratory Exam: Decreased Breath Sounds, Prolonged Expiratory Phase - Cardiovascular Exam Cardiovascular Exam: REGULAR RHYTHM - GI/Abdominal Exam GI & Abdominal Exam: Normal Bowel Sounds, Soft. absent: Tenderness - Rectal Exam Rectal Exam: NORMAL INSPECTION - Exam Exam: Circumcision, NORMAL INSPECTION External exam: NORMAL EXTERNAL EXAM Speculum exam: NORMAL SPECULUM EXAM Bimanual exam: NORMAL BIMANUAL EXAM - Extremities Exam Extremities exam: Positive for: normal inspection - Back Exam Back exam: NORMAL INSPECTION - Neurological Exam Neurological exam: Alert, CN II-XII Intact, Normal Gait, Oriented x3, Reflexes Normal - Psychiatric Exam Psychiatric exam: Normal Affect, Normal Mood - Skin Skin Exam: Dry, Intact, Normal Color, Warm Results - Vital Signs Recent Vital Signs: Last Vital Signs Temp 97.4 F L 03/03/17 15:00 Pulse 124 H 03/03/17 16:00 Resp 17 03/03/17 15:00 BP 116/75 03/03/17 15:00 Pulse Ox 100 03/03/17 15:00 - Labs Result Diagrams: 03/02/17 22:47 03/02/17 22:47 Labs: Laboratory Results - last 24 hr 03/03/17 03/03/17 03/03/17 09:02 11:21 16:46 POC Glucose (mg/dL) 346 H 345 H 271 H Total Creatine Kinase CK-MB (Mass) Troponin I, Quant 03/03/17 03/03/17 17:00 21:24 POC Glucose (mg/dL) 224 H Total Creatine Kinase 81 CK-MB (Mass) 3.02 Troponin I, Quant < 0.0120 Assessment & Plan (1) COPD exacerbation Assessment and Plan: cot. bipap pul. is on the case . cont present solumedrol , Status: Acute Priority: Medium (2) Acute bronchitis with asthma with acute exacerbation Assessment and Plan: cot. anb . Status: Acute (3) Acute exacerbation of chronic obstructive pulmonary disease (COPD) Status: Acute Priority: High (4) Acute respiratory distress Status: Acute (5) Allergic Status: Acute (6) Anemia Status: Acute (7) Asthma Status: Acute (8) Atypical chest pain Status: Acute (9) Back ache Status: Acute (10) Bronchitis Status: Acute Priority: Medium (11) Bronchopneumonia Status: Acute (12) Bronchospasm Status: Acute (13) CAD (coronary artery disease) Status: Acute (14) COPD (chronic obstructive pulmonary disease) Status: Acute (15) COPD (chronic obstructive pulmonary disease) with acute bronchitis Status: Acute (16) COPD (chronic obstructive pulmonary disease) with emphysema Status: Acute (17) Cellulitis Status: Acute (18) Chest pain Status: Acute Priority: Medium (19) Chr obstructive pulmonary disease w/ acute lower respiratory infxn Status: Acute (20) Chronic congestive heart failure Status: Acute (21) Chronic obstructive lung disease Status: Acute (22) Chronic obstructive pulmonary disease with bronchospasm Status: Acute (23) Chronic respiratory failure Status: Acute (24) Clavicle fracture Status: Acute (25) Corneal abrasion Status: Acute (26) Dyspnea Status: Acute (27) Electrolyte abnormality Status: Acute (28) Fever Status: Acute (29) Gout Status: Acute (30) Herpes zoster Status: Acute (31) Hoarse voice quality Status: Acute (32) Hyponatremia Status: Acute (33) Hyponatremia syndrome Status: Acute (34) Influenza Status: Acute (35) Lumbago Status: Acute (36) Oral thrush Status: Acute (37) Pneumonia Status: Acute (38) Post herpetic neuralgia Status: Acute (39) Prophylactic measure Status: Acute (40) Pulmonary embolism Status: Acute (41) RUQ abdominal pain Status: Acute Priority: High (42) Rash Status: Acute (43) Respiratory distress Status: Acute (44) Respiratory tract infection Status: Acute (45) SOB (shortness of breath) Status: Acute (46) Sepsis Status: Acute (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,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 (48) Tachyarrhythmia Status: Acute (49) Tachycardia Status: Acute (50) Allergic rhinitis Status: Chronic Priority: Medium (51) 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 (52) Allergic rhinitis due to animal hair and dander Status: Chronic Priority: Medium (53) Anxiety Status: Chronic (54) Bronchiolitis Status: Chronic (55) CHF (congestive heart failure) Status: Chronic (56) Diabetes Status: Chronic (57) PUNEET (generalized anxiety disorder) Status: Chronic (58) Hyperglycemia Status: Chronic Priority: Medium (59) Respiratory acidosis Status: Chronic (60) Respiratory failure Status: Chronic (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 Also complaining off sharp chest pain sharp associated with tachycardia today. Patient was placed on BiPAP. Patient states breathing is slightly better
--- NOTE | 2017-03-04 02:34 | CP.PCM.CON ---
History of Present Illness - History of Present Illness History of Present Illness: CC: SOB, evaluation for CHF, tachycardia HPI: Mr. Nathen Lawson is a pleasant 66-year-old male with past medical history significant for COPD secondary to [id number] history of smoking. He quit smoking 5 years ago. He presented with complains of worsening shortness of breath accompanied with symptoms of severe palpitation.According to the patient he also complains of having substernal episodes of chest discomfort described as feeling of pressure-like sensation for which she had undergone ischemic evaluation in the past with cardiac catheterization which showed nonobstructive coronary artery disease. I reviewed the catheterization that was done 2 years ago which shows mid LAD has a [id number] degree of myocardial bridging. He does describe having worsening shortness of breath for a few days prior to this presentation which was the which was severe in intensity and he could barely catch his breath at rest. The symptoms were associated with chest discomfort and palpitations which would make him feel as if his heart was thumping in the chest.He also has known history of diabetes mellitus and dyslipidemia for he which he has been on oral hypoglycemics well controlled and on statin therapy. He has not been on any antihypertensives in the past. At baseline he has limited activity and can only walk around the house with independent activities of daily living. He describes having NYHA functional class II dyspnea at rest which worsened to class IV which was the cause of his presentation secondary to severe respiratory distress. Review of Systems - Review of Systems All systems: reviewed and no additional remarkable complaints except - Constitutional Constitutional: As Per HPI, Fatigue, Malaise - EENT Eyes: As Per HPI Ears: As Per HPI Nose/Mouth/Throat: Post Nasal Drip - Cardiovascular Cardiovascular: Chest Pain, Dyspnea, Palpitations - Respiratory Respiratory: Cough, Dyspnea - Gastrointestinal Gastrointestinal: As Per HPI - Genitourinary Genitourinary: As Per HPI - Integumentary Integumentary: As Per HPI - Neurological Neurological: As Per HPI - Psychiatric Psychiatric: As Per HPI - Endocrine Endocrine: As Per HPI - Hematologic/Lymphatic Hematologic: As Per HPI Past Patient History - Infectious Disease Hx of Infectious Diseases: None - Past Medical History & Family History Past Medical History?: Yes Pertinent Family History: hx of HTN and DM - Past Social History Smoking Status: Former Smoker - CARDIAC Hx Cardiac Disorders: Yes Hx Congestive Heart Failure: Yes Hx Hypercholesterolemia: Yes Hx Hypertension: Yes - PULMONARY Hx Respiratory Disorders: Yes Hx Asthma: Yes Hx Bronchitis: Yes Hx Chronic Obstructive Pulmonary Disease (COPD): Yes Hx Emphysema: Yes Hx Pneumonia: Yes Hx Sleep Apnea: Yes - NEUROLOGICAL Hx Neurological Disorder: No - HEENT Hx HEENT Problems: Yes Hx Cataracts: Yes (left cataract removed, r cataract) Other/Comment: wears eyeglasses for distance - RENAL Hx Chronic Kidney Disease: Yes - ENDOCRINE/METABOLIC Hx Endocrine Disorders: Yes Hx Diabetes Mellitus Type 2: Yes - HEMATOLOGICAL/ONCOLOGICAL Hx Blood Disorders: No - INTEGUMENTARY Hx Dermatological Problems: No - MUSCULOSKELETAL/RHEUMATOLOGICAL Hx Arthritis: Yes (BACK; KNEES) Hx Falls: No - GASTROINTESTINAL Hx Gastrointestinal Disorders: No - GENITOURINARY/GYNECOLOGICAL Hx Genitourinary Disorders: No - PSYCHIATRIC Hx Psychophysiologic Disorder: Yes Hx Anxiety: Yes Hx Substance Use: No - SURGICAL HISTORY Hx Surgeries: Yes Hx Cardiac Catheterization: Yes (11/2015) - ANESTHESIA Hx Anesthesia: Yes Hx Anesthesia Reactions: Yes (pt dont know. aware) Hx Malignant Hyperthermia: No Meds Allergies/Adverse Reactions: Allergies Allergy/AdvReac Type Severity Reaction Status Date / Time acetaminophen [From Tylenol] Allergy RASH Verified 03/02/17 22:26 FISH Allergy SWELLING Verified 03/02/17 22:26 shrimp Allergy SHORTNESS Verified 03/02/17 22:26 OF BREATH - Medications Medications: Current Medications Albuterol/Ipratropium (Duoneb 3 Mg/0.5 Mg (3 Ml) Ud) 3 ml INH RQ6 [facility] Last Admin: 03/03/17 19:50 Dose: 3 ml Alprazolam (Xanax) 0.5 mg PO BID PRN PRN Reason: Anxiety Stop: 03/10/17 08:32 Last Admin: 03/03/17 21:33 Dose: 0.5 mg Enoxaparin Sodium (Lovenox) 40 mg SC DAILY [facility] Last Admin: 03/03/17 09:55 Dose: 40 mg Home Med (Arformoterol Tartrate [Brovana]) 1 mauricio IH BID [facility] Ceftriaxone Sodium 1 gm/ (Sodium Chloride) 100 mls @ 100 mls/hr IVPB DAILY [facility] Last Admin: 03/03/17 11:34 Dose: 100 mls/hr Insulin Glargine (Lantus) 16 unit SC HS [facility] Insulin Human Regular (Novolin R) 0 unit SC ACHS [facility] PRN Reason: Protocol Last Admin: 03/03/17 21:27 Dose: Not Given Metformin HCl (Glucophage) 1,000 mg PO BID [facility] Last Admin: 03/03/17 17:47 Dose: 1,000 mg Methylprednisolone (Solu-Medrol) 40 mg IVP Q12 [facility] Last Admin: 03/03/17 21:26 Dose: 40 mg Montelukast Sodium (Singulair) 10 mg PO HS [facility] Last Admin: 03/03/17 21:26 Dose: 10 mg Pantoprazole Sodium (Protonix Ec Tab) 40 mg PO DAILY [facility] Last Admin: 03/03/17 09:55 Dose: 40 mg Promethazine HCl/Codeine (Phenergan/Codeine Oral Syrup) 5 ml PO Q8 PRN PRN Reason: Cough Last Admin: 03/03/17 21:33 Dose: 5 ml Roflumilast (Daliresp) 500 mcg PO DAILY [facility] Rosuvastatin Calcium (Crestor) 10 mg PO HS [facility] Last Admin: 03/03/17 21:26 Dose: 10 mg Fluticasone/Salmeterol (Advair Diskus 250/50) 1 puff INH RBID [facility] Last Admin: 03/03/17 19:50 Dose: Not Given Physical Exam - Constitutional Appears: Well, In Acute Distress - Head Exam Head Exam: ATRAUMATIC, NORMAL INSPECTION, NORMOCEPHALIC - Eye Exam Eye Exam: EOMI, Normal appearance, PERRL Pupil Exam: NORMAL ACCOMODATION, PERRL - ENT Exam ENT Exam: Mucous Membranes Moist, Normal Exam - Neck Exam Neck exam: Positive for: Normal Inspection - Respiratory Exam Respiratory Exam: Decreased Breath Sounds, Prolonged Expiratory Phase, Wheezes, Respiratory Distress - Cardiovascular Exam Cardiovascular Exam: Tachycardia, +S1, +S2, Systolic Murmur - GI/Abdominal Exam GI & Abdominal Exam: Normal Bowel Sounds, Soft. absent: Tenderness - Rectal Exam Rectal Exam: Deferred - Back Exam Back exam: NORMAL INSPECTION - Neurological Exam Neurological exam: Alert, CN II-XII Intact, Oriented x3, Reflexes Normal - Psychiatric Exam Psychiatric exam: Normal Affect, Normal Mood - Skin Skin Exam: Dry, Intact, Normal Color, Warm Results - Vital Signs Recent Vital Signs: Last Vital Signs Temp 98.0 F 03/03/17 23:30 Pulse 107 H 03/03/17 23:30 Resp 20 03/03/17 23:30 BP 108/68 03/03/17 23:30 Pulse Ox 98 03/03/17 23:30 - Labs Result Diagrams: 03/02/17 22:47 03/02/17 22:47 Labs: Laboratory Results - last 24 hr 03/03/17 03/03/17 03/03/17 09:02 11:21 16:46 POC Glucose (mg/dL) 346 H 345 H 271 H Total Creatine Kinase CK-MB (Mass) Troponin I, Quant 03/03/17 03/03/17 17:00 21:24 POC Glucose (mg/dL) 224 H Total Creatine Kinase 81 CK-MB (Mass) 3.02 Troponin I, Quant < 0.0120 Assessment & Plan (1) Acute respiratory distress Assessment and Plan: etiology most likely secondary to severe COPD exacerbation cannot exclude underlying diastolic dysfunction and PAP as contributing factors will check echocardiogram continue with pulmonary treatments and steroids per pulmonary Status: Acute (2) Atypical chest pain Assessment and Plan: etiology secondary to myocardial bridging will need to be low dose BB will discuss with pulmonary before initiation of BB monitor on telemetry Status: Acute (3) CAD (coronary artery disease) Assessment and Plan: non-obstructive keep pt on asa initiate bb resume statins Status: Acute (4) Chronic congestive heart failure Assessment and Plan: acute on chronic 2' to right sided with diastolic will check echo will initiate on low dose arb Status: Acute
[2017-03-04] MEDS: Albuterol-Ipratrop 3 mg / 0.5 (3 ml) UD INH SCH ×4 (02:35→19:09)
[2017-03-04] MEDS: Fluticasone-Salmeterol 250-50mcg Diskus INH SCH ×2 (07:40→19:58)
[2017-03-04] MEDS: (Novolin R) Insulin Human Regular 100 units/ml vial SC SCH ×4 (08:25→21:33)
[2017-03-04] MEDS: Pantoprazole 40 mg EC Tab PO SCH (09:44)
[2017-03-04] MEDS: MethylPREDNISolone 40 mg Vial IVP SCH ×2 (09:44→21:22)
[2017-03-04] MEDS: Enoxaparin 40 mg Syringe SC SCH (09:45)
[2017-03-04] MEDS: Promethazine/Cod 6.25mg-10mg/5ml Syr UD PO PRN ×2 (09:50→21:57)
[2017-03-04] MEDS: (Lantus) Insulin Glargine, Recombinant SC SCH (21:23)
[2017-03-05] MEDS: Albuterol-Ipratrop 3 mg / 0.5 (3 ml) UD INH SCH ×4 (01:01→19:17)
--- NOTE | 2017-03-05 04:12 | PN ---
DATE: 03/04/2017 SUBJECTIVE: The patient is a 66-year-old who was seen and examined on 03/04/2017 at the bedside. was sitting at the bedside also. No nausea or vomiting. Denies any hematochezia. His shortness of breath is getting better. Cough is getting better. Wheezing is getting better. Now, he is sitting without BiPAP, having tea. No hematuria or hematochezia. PHYSICAL EXAMINATION: VITAL SIGNS: Temperature 98.1, pulse 98, blood pressure 109/57, respiratory rate is 20. HEENT: Head is normocephalic and atraumatic. Eyes: PERRLA. Extraocular motion is intact. Conjunctivae clear. Nares patent. Mucous membranes moist. NECK: Supple. No carotid bruit. No thyromegaly. CHEST: Bilaterally symmetric. HEART: S1 and S2 positive. LUNGS: Clear to auscultation. ABDOMEN: Soft. Bowel sounds are present. No organomegaly. EXTREMITIES: No edema and no cyanosis. NEUROLOGIC: awake and alert. Follows simple commands. MEDICATIONS: Advair, ceftriaxone, Crestor, Daliresp, DuoNeb, Glucophage, Lantus, Lovenox, Novolin, Phenergan, Protonix, Singulair, Solu-Medrol, Xanax. LABORATORY DATA: White blood cell is 12.8, hemoglobin 9.0, hematocrit 30.1, platelets 523. Glucose 274, 386 and 231. ASSESSMENT AND PLAN: The patient is a 66-year-old male with leukocytosis; anemia; thrombocytosis; hyperglycemia; history of chronic obstructive pulmonary disease; asthma; obstructive sleep apnea syndrome; anxiety; arthritis, especially back and knee, emphysema; hypertension; hypercholesterolemia; pneumonia; chronic kidney disease; sleep apnea. 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 Erich Nieto. . GI prophylaxis, tapering off steroid. We will follow up. Irish Faulkner MD /Irish Faulkner MD1:54:06 MTDD
[2017-03-05] MEDS: Fluticasone-Salmeterol 250-50mcg Diskus INH SCH ×2 (07:49→19:17)
[2017-03-05] MEDS: (Novolin R) Insulin Human Regular 100 units/ml vial SC SCH ×4 (08:10→22:12)
[2017-03-05] MEDS: MethylPREDNISolone 40 mg Vial IVP SCH ×2 (09:25→22:12)
[2017-03-05] MEDS: Pantoprazole 40 mg EC Tab PO SCH (09:25)
[2017-03-05] MEDS: Enoxaparin 40 mg Syringe SC SCH (09:26)
[2017-03-05] MEDS: Promethazine/Cod 6.25mg-10mg/5ml Syr UD PO PRN ×2 (09:33→22:13)
--- NOTE | 2017-03-05 12:31 | CARD ---
APPROVED REPORT EKG Measurement Heart [id number] <Conclusion> Sinus tachycardia Otherwise normal ECG
--- NOTE | 2017-03-05 17:25 | CP.PCM.PN ---
Subjective - Date & Time of Evaluation Date of Evaluation: 03/05/17 Time of Evaluation: 11:20 - Subjective Subjective: patient seen and examined. Still complaining of shortness of breath Slight cough Seen by cardiology for tachycardia Objective - Vital Signs/Intake and Output Vital Signs (last 24 hours): Temp Pulse Resp BP Pulse Ox 98 F 119 H 20 104/67 99 03/05/17 15:00 03/05/17 15:00 03/05/17 15:00 03/05/17 15:00 03/05/17 15:00 Intake and Output: 03/05/17 03/05/17 06:59 18:59 Intake Total 350 Output Total 700 Balance -700 350 - Medications Medications: Current Medications Albuterol/Ipratropium (Duoneb 3 Mg/0.5 Mg (3 Ml) Ud) 3 ml INH RQ6 [facility] Last Admin: 03/05/17 14:02 Dose: 3 ml Alprazolam (Xanax) 0.5 mg PO BID PRN PRN Reason: Anxiety Stop: 03/10/17 08:32 Last Admin: 03/05/17 09:33 Dose: 0.5 mg Enoxaparin Sodium (Lovenox) 40 mg SC DAILY [facility] Last Admin: 03/05/17 09:26 Dose: 40 mg Ceftriaxone Sodium 1 gm/ (Sodium Chloride) 100 mls @ 100 mls/hr IVPB DAILY [facility] Last Admin: 03/05/17 09:33 Dose: 100 mls/hr Insulin Glargine (Lantus) 16 unit SC HS [facility] Last Admin: 03/04/17 21:23 Dose: 16 units Insulin Human Regular (Novolin R) 0 unit SC ACHS [facility] PRN Reason: Protocol Last Admin: 03/05/17 12:28 Dose: 3 unit Metformin HCl (Glucophage) 1,000 mg PO BID [facility] Last Admin: 03/05/17 09:25 Dose: 1,000 mg Methylprednisolone (Solu-Medrol) 30 mg IVP Q12 [facility] Last Admin: 03/05/17 09:25 Dose: 30 mg Montelukast Sodium (Singulair) 10 mg PO HS [facility] Last Admin: 03/04/17 21:24 Dose: 10 mg Pantoprazole Sodium (Protonix Ec Tab) 40 mg PO DAILY [facility] Last Admin: 03/05/17 09:25 Dose: 40 mg Promethazine HCl/Codeine (Phenergan/Codeine Oral Syrup) 5 ml PO Q8 PRN PRN Reason: Cough Last Admin: 03/05/17 09:33 Dose: 5 ml Roflumilast (Daliresp) 500 mcg PO DAILY [facility] Last Admin: 03/05/17 09:33 Dose: 500 mcg Rosuvastatin Calcium (Crestor) 10 mg PO HS [facility] Last Admin: 03/04/17 21:23 Dose: 10 mg Fluticasone/Salmeterol (Advair Diskus 250/50) 1 puff INH RBID [facility] Last Admin: 03/05/17 07:49 Dose: 1 puff - Head Exam Head Exam: ATRAUMATIC, NORMOCEPHALIC - Eye Exam Eye Exam: Normal appearance - ENT Exam ENT Exam: Mucous Membranes Moist - Neck Exam Neck Exam: Normal Inspection - Respiratory Exam Respiratory Exam: Decreased Breath Sounds - Cardiovascular Exam Cardiovascular Exam: REGULAR RHYTHM - GI/Abdominal Exam GI & Abdominal Exam: Soft, Normal Bowel Sounds Assessment and Plan (1) Acute exacerbation of chronic obstructive pulmonary disease (COPD) Assessment & Plan: continue IV steroids, nebulizer treatment and BiPAP at night Status: Acute (2) Respiratory distress Status: Acute
[2017-03-05] MEDS: (Lantus) Insulin Glargine, Recombinant SC SCH (22:13)
--- NOTE | 2017-03-06 00:03 | CP.PCM.PN ---
Subjective - Date & Time of Evaluation Date of Evaluation: 03/05/17 Time of Evaluation: 09:30 - Subjective Subjective: patient seen and examined. Still complaining of shortness of breath Slight cough Seen by cardiology for tachycardia, Objective - Vital Signs/Intake and Output Vital Signs (last 24 hours): Temp Pulse Resp BP Pulse Ox 98 F 119 H 20 104/67 99 03/05/17 15:00 03/05/17 15:00 03/05/17 15:00 03/05/17 15:00 03/05/17 15:00 Intake and Output: 03/05/17 03/06/17 18:59 06:59 Intake Total 350 Balance 350 - Medications Medications: Current Medications Albuterol/Ipratropium (Duoneb 3 Mg/0.5 Mg (3 Ml) Ud) 3 ml INH RQ6 [facility] Last Admin: 03/05/17 19:17 Dose: 3 ml Alprazolam (Xanax) 0.5 mg PO BID PRN PRN Reason: Anxiety Stop: 03/10/17 08:32 Last Admin: 03/05/17 22:12 Dose: 0.5 mg Enoxaparin Sodium (Lovenox) 40 mg SC DAILY [facility] Last Admin: 03/05/17 09:26 Dose: 40 mg Ceftriaxone Sodium 1 gm/ (Sodium Chloride) 100 mls @ 100 mls/hr IVPB DAILY [facility] Last Admin: 03/05/17 09:33 Dose: 100 mls/hr Insulin Glargine (Lantus) 16 unit SC HS [facility] Last Admin: 03/05/17 22:13 Dose: 16 units Insulin Human Regular (Novolin R) 0 unit SC ACHS [facility] PRN Reason: Protocol Last Admin: 03/05/17 22:12 Dose: Not Given Metformin HCl (Glucophage) 1,000 mg PO BID [facility] Last Admin: 03/05/17 17:48 Dose: 1,000 mg Methylprednisolone (Solu-Medrol) 30 mg IVP Q12 [facility] Last Admin: 03/05/17 22:12 Dose: 30 mg Metoprolol Tartrate (Lopressor) 25 mg PO BID [facility] Montelukast Sodium (Singulair) 10 mg PO HS [facility] Last Admin: 03/05/17 22:12 Dose: 10 mg Pantoprazole Sodium (Protonix Ec Tab) 40 mg PO DAILY [facility] Last Admin: 03/05/17 09:25 Dose: 40 mg Promethazine HCl/Codeine (Phenergan/Codeine Oral Syrup) 5 ml PO Q8 PRN PRN Reason: Cough Last Admin: 03/05/17 22:13 Dose: 5 ml Roflumilast (Daliresp) 500 mcg PO DAILY [facility] Last Admin: 03/05/17 09:33 Dose: 500 mcg Rosuvastatin Calcium (Crestor) 10 mg PO HS [facility] Last Admin: 03/05/17 22:12 Dose: 10 mg Fluticasone/Salmeterol (Advair Diskus 250/50) 1 puff INH RBID [facility] Last Admin: 03/05/17 19:17 Dose: 1 puff - Constitutional Appears: Well - Head Exam Head Exam: ATRAUMATIC, NORMAL INSPECTION, NORMOCEPHALIC - Eye Exam Eye Exam: EOMI, Normal appearance, PERRL Pupil Exam: NORMAL ACCOMODATION, PERRL - ENT Exam ENT Exam: Mucous Membranes Moist, Normal Exam - Neck Exam Neck Exam: Full ROM, Normal Inspection. absent: Lymphadenopathy - Respiratory Exam Respiratory Exam: Decreased Breath Sounds, Prolonged Expiratory Phase, Wheezes - Cardiovascular Exam Cardiovascular Exam: REGULAR RHYTHM, +S1, +S2. absent: Murmur - GI/Abdominal Exam GI & Abdominal Exam: Soft, Normal Bowel Sounds. absent: Tenderness - Rectal Exam Rectal Exam: NORMAL INSPECTION - Exam Exam: Circumcision, NORMAL INSPECTION External exam: NORMAL EXTERNAL EXAM Speculum exam: NORMAL SPECULUM EXAM Bimanual exam: NORMAL BIMANUAL EXAM - Extremities Exam Extremities Exam: Full ROM, Normal Capillary Refill, Normal Inspection. absent : Joint Swelling, Pedal Edema - Back Exam Back Exam: NORMAL INSPECTION - Neurological Exam Neurological Exam: Alert, Awake, CN II-XII Intact, Normal Gait, Oriented x3 - Psychiatric Exam Psychiatric exam: Normal Affect, Normal Mood - Skin Skin Exam: Dry, Intact, Normal Color, Warm Assessment and Plan (1) COPD exacerbation Status: Acute (2) Acute bronchitis with asthma with acute exacerbation Status: Acute (3) Acute exacerbation of chronic obstructive pulmonary disease (COPD) Status: Acute (4) Anemia Status: Acute (5) Asthma Status: Acute (6) Atypical chest pain Status: Acute (7) Back ache Status: Acute (8) Bronchitis Status: Acute (9) Bronchospasm Status: Acute (10) CAD (coronary artery disease) Status: Acute (11) COPD (chronic obstructive pulmonary disease) Status: Acute (12) COPD (chronic obstructive pulmonary disease) with acute bronchitis Status: Acute (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 Status: Acute (14) Chest pain Status: Acute (15) Chr obstructive pulmonary disease w/ acute lower respiratory infxn Status: Acute (16) Chronic congestive heart failure Status: Acute (17) Chronic obstructive lung disease Status: Acute (18) Chronic obstructive pulmonary disease with bronchospasm Status: Acute (19) Chronic respiratory failure Status: Acute (20) Clavicle fracture Status: Acute (21) Corneal abrasion Status: Acute (22) Dyspnea Status: Acute (23) Electrolyte abnormality Status: Acute (24) Fever Status: Acute (25) Gout Status: Acute (26) Herpes zoster Status: Acute (27) Hoarse voice quality Status: Acute (28) Hyponatremia Status: Acute (29) Hyponatremia syndrome Status: Acute (30) Influenza Status: Acute (31) Lumbago Status: Acute (32) Oral thrush Status: Acute (33) Pneumonia Status: Acute (34) Post herpetic neuralgia Status: Acute (35) Prophylactic measure Status: Acute (36) Pulmonary embolism Status: Acute (37) RUQ abdominal pain Status: Acute (38) Rash Status: Acute (39) Respiratory distress Status: Acute (40) Respiratory tract infection Status: Acute (41) SOB (shortness of breath) Status: Acute (42) Sepsis Status: Acute (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 - Assessment and Plan (Free Text) Assessment: (1) Acute respiratory distress Assessment and Plan: etiology most likely secondary to severe COPD exacerbation cannot exclude underlying diastolic dysfunction and PAP as contributing factors will check echocardiogram continue with pulmonary treatments and steroids per pulmonary Status: Acute (2) Atypical chest pain Assessment and Plan: etiology secondary to myocardial bridging will need to be low dose BB will discuss with pulmonary before initiation of BB monitor on telemetry Status: Acute (3) CAD (coronary artery disease) Assessment and Plan: non-obstructive keep pt on asa initiate bb resume statins Status: Acute (4) Chronic congestive heart failure Assessment and Plan: acute on chronic 2' to right sided with diastolic will check echo will initiate on low dose arb Status: Acute
[2017-03-06] MEDS: Albuterol-Ipratrop 3 mg / 0.5 (3 ml) UD INH SCH ×4 (01:21→20:00)
[2017-03-06] MEDS: Fluticasone-Salmeterol 250-50mcg Diskus INH SCH ×2 (08:43→20:00)
[2017-03-06] MEDS: (Novolin R) Insulin Human Regular 100 units/ml vial SC SCH ×4 (08:55→21:38)
[2017-03-06] MEDS: Pantoprazole 40 mg EC Tab PO SCH (10:41)
[2017-03-06] MEDS: Enoxaparin 40 mg Syringe SC SCH (10:41)
[2017-03-06] MEDS: MethylPREDNISolone 40 mg Vial IVP SCH ×2 (10:42→21:26)
[2017-03-06] MEDS: Promethazine/Cod 6.25mg-10mg/5ml Syr UD PO PRN ×2 (10:48→21:22)
[2017-03-06 16:11] VITALS: RESP 20
[2017-03-06] MEDS: Lidocaine 5% Patch TD SCH (16:59)
--- NOTE | 2017-03-06 17:05 | CARD ---
APPROVED REPORT EKG Measurement Heart [id number] ND [id number] <Conclusion> Sinus tachycardia with premature atrial complexes Otherwise normal ECG
--- NOTE | 2017-03-06 17:49 | CP.PCM.PN ---
Subjective - Date & Time of Evaluation Date of Evaluation: 03/06/17 Time of Evaluation: 15:00 - Subjective Subjective: Patient seen and examined. Breathing improving Using BiPAP at night Afebrile with no chest pain Stable from pulmonary standpoint to discharge home Objective - Vital Signs/Intake and Output Vital Signs (last 24 hours): Temp Pulse Resp BP Pulse Ox 98 F 103 H 20 116/68 99 03/06/17 15:24 03/06/17 15:24 03/06/17 15:24 03/06/17 17:04 03/06/17 15:24 Intake and Output: 03/06/17 03/06/17 06:59 18:59 Intake Total 350 Output Total 700 Balance -350 - Medications Medications: Current Medications Albuterol/Ipratropium (Duoneb 3 Mg/0.5 Mg (3 Ml) Ud) 3 ml INH RQ6 [facility] Last Admin: 03/06/17 13:11 Dose: 3 ml Alprazolam (Xanax) 0.5 mg PO BID PRN PRN Reason: Anxiety Stop: 03/10/17 08:32 Last Admin: 03/06/17 10:41 Dose: 0.5 mg Enoxaparin Sodium (Lovenox) 40 mg SC DAILY [facility] Last Admin: 03/06/17 10:41 Dose: 40 mg Ceftriaxone Sodium 1 gm/ (Sodium Chloride) 100 mls @ 100 mls/hr IVPB DAILY [facility] Last Admin: 03/06/17 11:04 Dose: 100 mls/hr Insulin Glargine (Lantus) 16 unit SC HS [facility] Last Admin: 03/05/17 22:13 Dose: 16 units Insulin Human Regular (Novolin R) 0 unit SC ACHS [facility] PRN Reason: Protocol Last Admin: 03/06/17 16:59 Dose: 5 unit Lidocaine (Lidoderm) 1 ea TD DAILY [facility] Last Admin: 03/06/17 16:59 Dose: 1 ea Metformin HCl (Glucophage) 1,000 mg PO BID [facility] Last Admin: 03/06/17 16:59 Dose: 1,000 mg Methylprednisolone (Solu-Medrol) 30 mg IVP Q12 [facility] Last Admin: 03/06/17 10:42 Dose: 30 mg Metoprolol Tartrate (Lopressor) 25 mg PO BID [facility] Last Admin: 03/06/17 17:04 Dose: 25 mg Montelukast Sodium (Singulair) 10 mg PO HS [facility] Last Admin: 03/05/17 22:12 Dose: 10 mg Pantoprazole Sodium (Protonix Ec Tab) 40 mg PO DAILY [facility] Last Admin: 03/06/17 10:41 Dose: 40 mg Promethazine HCl/Codeine (Phenergan/Codeine Oral Syrup) 5 ml PO Q8 PRN PRN Reason: Cough Last Admin: 03/06/17 10:48 Dose: 5 ml Roflumilast (Daliresp) 500 mcg PO DAILY [facility] Last Admin: 03/06/17 10:41 Dose: 500 mcg Rosuvastatin Calcium (Crestor) 10 mg PO HS [facility] Last Admin: 03/05/17 22:12 Dose: 10 mg Fluticasone/Salmeterol (Advair Diskus 250/50) 1 puff INH RBID [facility] Last Admin: 03/06/17 08:43 Dose: 1 puff Assessment and Plan (1) Acute exacerbation of chronic obstructive pulmonary disease (COPD) Status: Acute (2) Respiratory distress Status: Acute
--- NOTE | 2017-03-06 20:40 | CP.PCM.PN ---
Subjective - Date & Time of Evaluation Date of Evaluation: 03/06/17 Time of Evaluation: 20:40 - Subjective Subjective: feeling better after initiation of BB HR improving still mildly SOB at rest and few episodic palpitations Objective - Vital Signs/Intake and Output Vital Signs (last 24 hours): Temp Pulse Resp BP Pulse Ox 98 F 103 H 20 116/68 99 03/06/17 15:24 03/06/17 15:24 03/06/17 15:24 03/06/17 17:04 03/06/17 15:24 - Medications Medications: Current Medications Albuterol/Ipratropium (Duoneb 3 Mg/0.5 Mg (3 Ml) Ud) 3 ml INH RQ6 [facility] Last Admin: 03/06/17 20:00 Dose: 3 ml Alprazolam (Xanax) 0.5 mg PO BID PRN PRN Reason: Anxiety Stop: 03/10/17 08:32 Last Admin: 03/06/17 10:41 Dose: 0.5 mg Enoxaparin Sodium (Lovenox) 40 mg SC DAILY [facility] Last Admin: 03/06/17 10:41 Dose: 40 mg Ceftriaxone Sodium 1 gm/ (Sodium Chloride) 100 mls @ 100 mls/hr IVPB DAILY [facility] Last Admin: 03/06/17 11:04 Dose: 100 mls/hr Insulin Glargine (Lantus) 16 unit SC HS [facility] Last Admin: 03/05/17 22:13 Dose: 16 units Insulin Human Regular (Novolin R) 0 unit SC ACHS [facility] PRN Reason: Protocol Last Admin: 03/06/17 16:59 Dose: 5 unit Lidocaine (Lidoderm) 1 ea TD DAILY [facility] Last Admin: 03/06/17 16:59 Dose: 1 ea Metformin HCl (Glucophage) 1,000 mg PO BID [facility] Last Admin: 03/06/17 16:59 Dose: 1,000 mg Methylprednisolone (Solu-Medrol) 30 mg IVP Q12 [facility] Last Admin: 03/06/17 10:42 Dose: 30 mg Metoprolol Tartrate (Lopressor) 25 mg PO BID [facility] Last Admin: 03/06/17 17:04 Dose: 25 mg Montelukast Sodium (Singulair) 10 mg PO HS [facility] Last Admin: 03/05/17 22:12 Dose: 10 mg Pantoprazole Sodium (Protonix Ec Tab) 40 mg PO DAILY [facility] Last Admin: 03/06/17 10:41 Dose: 40 mg Promethazine HCl/Codeine (Phenergan/Codeine Oral Syrup) 5 ml PO Q8 PRN PRN Reason: Cough Last Admin: 03/06/17 10:48 Dose: 5 ml Roflumilast (Daliresp) 500 mcg PO DAILY [facility] Last Admin: 03/06/17 10:41 Dose: 500 mcg Rosuvastatin Calcium (Crestor) 10 mg PO HS [facility] Last Admin: 03/05/17 22:12 Dose: 10 mg Fluticasone/Salmeterol (Advair Diskus 250/50) 1 puff INH RBID [facility] Last Admin: 03/06/17 20:00 Dose: 1 puff - Constitutional Appears: Well - Head Exam Head Exam: ATRAUMATIC, NORMAL INSPECTION, NORMOCEPHALIC - Eye Exam Eye Exam: EOMI, Normal appearance, PERRL Pupil Exam: NORMAL ACCOMODATION, PERRL - ENT Exam ENT Exam: Mucous Membranes Moist, Normal Exam - Neck Exam Neck Exam: Full ROM, Normal Inspection. absent: Lymphadenopathy - Respiratory Exam Respiratory Exam: Decreased Breath Sounds, Wheezes, NORMAL BREATHING PATTERN - Cardiovascular Exam Cardiovascular Exam: Tachycardia, +S1, +S2, Murmur - GI/Abdominal Exam GI & Abdominal Exam: Soft, Normal Bowel Sounds. absent: Tenderness - Rectal Exam Rectal Exam: Deferred - Extremities Exam Extremities Exam: Full ROM, Normal Capillary Refill, Normal Inspection. absent : Joint Swelling, Pedal Edema - Back Exam Back Exam: NORMAL INSPECTION - Neurological Exam Neurological Exam: Alert, Awake, CN II-XII Intact, Oriented x3 - Psychiatric Exam Psychiatric exam: Normal Affect, Normal Mood - Skin Skin Exam: Dry, Intact, Normal Color, Warm Assessment and Plan (1) Acute respiratory distress Assessment & Plan: improving responded well to pulmonary rx and bb cleared by respiratory for dc Status: Acute (2) Atypical chest pain Assessment & Plan: etiology most likely secondary to respiratory distress and chest wall discomfort improved with bb outpt w/u if recurrent sx Status: Acute (3) CAD (coronary artery disease) Assessment & Plan: No evidence to suggest IHD cont on asa, bb Status: Acute (4) Chronic congestive heart failure Assessment & Plan: diastolic , compensated echo in august didn't evaluated diastolic function and mild pulmonary HTN will initiate on low dose arbs for RAAS modulation outpt f/u stable for dc Status: Acute
[2017-03-06] MEDS: (Lantus) Insulin Glargine, Recombinant SC SCH (21:23)
[2017-03-07] MEDS: Albuterol-Ipratrop 3 mg / 0.5 (3 ml) UD INH SCH ×4 (02:22→20:02)
[2017-03-07] MEDS: Fluticasone-Salmeterol 250-50mcg Diskus INH SCH ×2 (07:29→20:02)
[2017-03-07 07:39] LABS: BASO % 0.3 % (0.0-2.0); EOS % 0.1 % (0.0-4.0); HEMATOCRIT 25.5 % (35.0-51.0); LYMPH # 1.1 K/uL (1.0-4.3); LYMPH % 9.7 % (20.0-40.0); MEAN CORPUSCULAR HEMOGLOBIN 18.2 pg (27.0-31.0); MEAN CORPUSCULAR HGB CONC 30.3 g/dL (33.0-37.0); MEAN PLATELET VOLUME 8.4 fL (7.2-11.7); MONO # 0.8 K/uL (0.0-0.8); MONO % 6.5 % (0.0-10.0); NRBC % 0.1 % (0.0-2.0); PLATELET COUNT 470 K/uL (130-400); RED CELL DISTRIBUTION WIDTH 18.4 % (11.5-14.5); WHITE BLOOD COUNT 11.9 K/uL (4.8-10.8)
[2017-03-07 07:42] LABS: CHLORIDE 91 mmol/L (98-107); SODIUM 136 mmol/L (132-148)
[2017-03-07 07:43] LABS: POTASSIUM 4.2 mmol/L (3.6-5.2)
[2017-03-07 07:45] LABS: CARBON DIOXIDE 32 mmol/L (22-30); GFR AFRICAN-AMERICAN > 60
[2017-03-07 07:46] LABS: BLOOD UREA NITROGEN 12 mg/dL (9-20); CALCIUM 8.7 mg/dl (8.6-10.4); GLUCOSE,RANDOM 297 mg/dL (75-110)
[2017-03-07] MEDS: (Novolin R) Insulin Human Regular 100 units/ml vial SC SCH ×4 (08:46→21:35)
[2017-03-07 08:50] LABS: BASOPHIL 1 % (0-2); NEUTROPHIL 85 % (50-75); REACTIVE LYMPHOCYTES 1 % (0-0); TOTAL CELLS COUNTED 100
[2017-03-07] MEDS: Pantoprazole 40 mg EC Tab PO SCH (11:00)
[2017-03-07] MEDS: Lidocaine 5% Patch TD SCH (11:00)
[2017-03-07] MEDS: Enoxaparin 40 mg Syringe SC SCH (11:03)
--- NOTE | 2017-03-07 11:05 | CP.PCM.PN ---
Subjective - Date & Time of Evaluation Date of Evaluation: 03/07/17 Time of Evaluation: 09:00 - Subjective Subjective: patient seen and examined today Lying comfortably in no acute distress Denies cough, denies fever chills, denies chest pain Discharge patient home and follow-up in the office Objective - Vital Signs/Intake and Output Vital Signs (last 24 hours): Temp Pulse Resp BP Pulse Ox 97.6 F 92 H 20 111/61 100 03/07/17 08:02 03/07/17 08:14 03/07/17 08:02 03/07/17 08:02 03/07/17 08:02 Intake and Output: 03/07/17 03/07/17 06:59 18:59 Intake Total 560 Output Total 750 Balance -190 - Medications Medications: Current Medications Albuterol/Ipratropium (Duoneb 3 Mg/0.5 Mg (3 Ml) Ud) 3 ml INH RQ6 [facility] Last Admin: 03/07/17 07:29 Dose: 3 ml Alprazolam (Xanax) 0.5 mg PO BID PRN PRN Reason: Anxiety Stop: 03/10/17 08:32 Last Admin: 03/06/17 21:26 Dose: 0.5 mg Enoxaparin Sodium (Lovenox) 40 mg SC DAILY [facility] Last Admin: 03/06/17 10:41 Dose: 40 mg Ceftriaxone Sodium 1 gm/ (Sodium Chloride) 100 mls @ 100 mls/hr IVPB DAILY [facility] Last Admin: 03/06/17 11:04 Dose: 100 mls/hr Insulin Glargine (Lantus) 16 unit SC HS [facility] Last Admin: 03/06/17 21:23 Dose: 16 units Insulin Human Regular (Novolin R) 0 unit SC ACHS [facility] PRN Reason: Protocol Last Admin: 03/07/17 08:46 Dose: 3 unit Lidocaine (Lidoderm) 1 ea TD DAILY [facility] Last Admin: 03/06/17 16:59 Dose: 1 ea Metformin HCl (Glucophage) 1,000 mg PO BID [facility] Last Admin: 03/06/17 16:59 Dose: 1,000 mg Methylprednisolone (Solu-Medrol) 30 mg IVP Q12 [facility] Last Admin: 03/06/17 21:26 Dose: 30 mg Metoprolol Tartrate (Lopressor) 25 mg PO BID [facility] Last Admin: 03/06/17 17:04 Dose: 25 mg Montelukast Sodium (Singulair) 10 mg PO HS [facility] Last Admin: 03/06/17 21:23 Dose: 10 mg Pantoprazole Sodium (Protonix Ec Tab) 40 mg PO DAILY [facility] Last Admin: 03/06/17 10:41 Dose: 40 mg Promethazine HCl/Codeine (Phenergan/Codeine Oral Syrup) 5 ml PO Q8 PRN PRN Reason: Cough Last Admin: 03/06/17 21:22 Dose: 5 ml Roflumilast (Daliresp) 500 mcg PO DAILY [facility] Last Admin: 03/06/17 10:41 Dose: 500 mcg Rosuvastatin Calcium (Crestor) 10 mg PO HS [facility] Last Admin: 03/06/17 21:22 Dose: 10 mg Fluticasone/Salmeterol (Advair Diskus 250/50) 1 puff INH RBID [facility] Last Admin: 03/07/17 07:29 Dose: 1 puff - Labs Labs: 03/07/17 06:53 03/07/17 06:53 Assessment and Plan (1) Acute exacerbation of chronic obstructive pulmonary disease (COPD) Status: Acute (2) Respiratory distress Status: Acute
[2017-03-07] MEDS: Promethazine/Cod 6.25mg-10mg/5ml Syr UD PO PRN ×2 (11:08→22:50)
[2017-03-07] MEDS: MethylPREDNISolone 40 mg Vial IVP SCH ×2 (11:09→22:44)
--- NOTE | 2017-03-07 16:57 | CP.PCM.PN ---
Subjective - Date & Time of Evaluation Date of Evaluation: 03/06/17 Time of Evaluation: 09:00 - Subjective Subjective: feeling better after initiation of BB HR improving still mildly SOB at rest and few episodic palpitations still coughing , cardio and pul. is on the case Objective - Vital Signs/Intake and Output Vital Signs (last 24 hours): Temp Pulse Resp BP Pulse Ox 98 F 95 H 20 101/65 98 03/07/17 15:28 03/07/17 15:28 03/07/17 15:28 03/07/17 15:28 03/07/17 15:28 Intake and Output: 03/07/17 03/07/17 06:59 18:59 Intake Total 560 Output Total 750 Balance -190 - Medications Medications: Current Medications Albuterol/Ipratropium (Duoneb 3 Mg/0.5 Mg (3 Ml) Ud) 3 ml INH RQ6 [facility] Last Admin: 03/07/17 13:21 Dose: 3 ml Alprazolam (Xanax) 0.5 mg PO BID PRN PRN Reason: Anxiety Stop: 03/10/17 08:32 Last Admin: 03/07/17 11:08 Dose: 0.5 mg Enoxaparin Sodium (Lovenox) 40 mg SC DAILY [facility] Last Admin: 03/07/17 11:03 Dose: 40 mg Ceftriaxone Sodium 1 gm/ (Sodium Chloride) 100 mls @ 100 mls/hr IVPB DAILY [facility] Last Admin: 03/07/17 10:30 Dose: 100 mls/hr Insulin Glargine (Lantus) 16 unit SC HS [facility] Last Admin: 03/06/17 21:23 Dose: 16 units Insulin Human Regular (Novolin R) 0 unit SC ACHS [facility] PRN Reason: Protocol Last Admin: 03/07/17 12:59 Dose: 4 unit Lidocaine (Lidoderm) 1 ea TD DAILY [facility] Last Admin: 03/07/17 11:00 Dose: 1 ea Metformin HCl (Glucophage) 1,000 mg PO BID [facility] Last Admin: 03/07/17 11:43 Dose: 1,000 mg Methylprednisolone (Solu-Medrol) 30 mg IVP Q12 [facility] Last Admin: 03/07/17 11:09 Dose: 30 mg Metoprolol Tartrate (Lopressor) 50 mg PO BID [facility] Montelukast Sodium (Singulair) 10 mg PO HS [facility] Last Admin: 03/06/17 21:23 Dose: 10 mg Pantoprazole Sodium (Protonix Ec Tab) 40 mg PO DAILY [facility] Last Admin: 03/07/17 11:00 Dose: 40 mg Promethazine HCl/Codeine (Phenergan/Codeine Oral Syrup) 5 ml PO Q8 PRN PRN Reason: Cough Last Admin: 03/07/17 11:08 Dose: 5 ml Roflumilast (Daliresp) 500 mcg PO DAILY [facility] Last Admin: 03/07/17 11:00 Dose: 500 mcg Rosuvastatin Calcium (Crestor) 10 mg PO HS [facility] Last Admin: 03/06/17 21:22 Dose: 10 mg Fluticasone/Salmeterol (Advair Diskus 250/50) 1 puff INH RBID [facility] Last Admin: 03/07/17 07:29 Dose: 1 puff - Labs Labs: 03/07/17 06:53 03/07/17 06:53 - Constitutional Appears: Well - Head Exam Head Exam: ATRAUMATIC, NORMAL INSPECTION, NORMOCEPHALIC - Eye Exam Eye Exam: EOMI, Normal appearance, PERRL Pupil Exam: NORMAL ACCOMODATION, PERRL - ENT Exam ENT Exam: Mucous Membranes Moist, Normal Exam - Neck Exam Neck Exam: Full ROM, Normal Inspection. absent: Lymphadenopathy - Respiratory Exam Respiratory Exam: Prolonged Expiratory Phase, Wheezes - Cardiovascular Exam Cardiovascular Exam: REGULAR RHYTHM, +S1, +S2. absent: Murmur - GI/Abdominal Exam GI & Abdominal Exam: Soft, Normal Bowel Sounds. absent: Tenderness - Rectal Exam Rectal Exam: NORMAL INSPECTION - Exam Exam: Circumcision, NORMAL INSPECTION External exam: NORMAL EXTERNAL EXAM Speculum exam: NORMAL SPECULUM EXAM Bimanual exam: NORMAL BIMANUAL EXAM - Extremities Exam Extremities Exam: Full ROM, Normal Capillary Refill, Normal Inspection. absent : Joint Swelling, Pedal Edema - Back Exam Back Exam: NORMAL INSPECTION - Neurological Exam Neurological Exam: Alert, Awake, CN II-XII Intact, Normal Gait, Oriented x3 - Psychiatric Exam Psychiatric exam: Normal Affect, Normal Mood - Skin Skin Exam: Dry, Intact, Normal Color, Warm Assessment and Plan (1) COPD exacerbation Status: Acute (2) Acute bronchitis with asthma with acute exacerbation Status: Acute (3) Acute exacerbation of chronic obstructive pulmonary disease (COPD) Status: Acute (4) Anemia Status: Acute (5) Asthma Status: Acute (6) Atypical chest pain Status: Acute (7) Back ache Status: Acute (8) Bronchitis Status: Acute (9) Bronchospasm Status: Acute (10) CAD (coronary artery disease) Status: Acute (11) COPD (chronic obstructive pulmonary disease) Status: Acute (12) COPD (chronic obstructive pulmonary disease) with acute bronchitis Status: Acute (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 Status: Acute (14) Chest pain Status: Acute (15) Chr obstructive pulmonary disease w/ acute lower respiratory infxn Status: Acute (16) Chronic congestive heart failure Status: Acute (17) Chronic obstructive lung disease Status: Acute (18) Chronic obstructive pulmonary disease with bronchospasm Status: Acute (19) Chronic respiratory failure Status: Acute (20) Clavicle fracture Status: Acute (21) Corneal abrasion Status: Acute (22) Dyspnea Status: Acute (23) Electrolyte abnormality Status: Acute (24) Fever Status: Acute (25) Gout Status: Acute (26) Herpes zoster Status: Acute (27) Hoarse voice quality Status: Acute (28) Hyponatremia Status: Acute (29) Hyponatremia syndrome Status: Acute (30) Influenza Status: Acute (31) Lumbago Status: Acute (32) Oral thrush Status: Acute (33) Pneumonia Status: Acute (34) Post herpetic neuralgia Status: Acute (35) Prophylactic measure Status: Acute (36) Pulmonary embolism Status: Acute (37) RUQ abdominal pain Status: Acute (38) Rash Status: Acute (39) Respiratory distress Status: Acute (40) Respiratory tract infection Status: Acute (41) SOB (shortness of breath) Status: Acute (42) Sepsis Status: Acute (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 - Assessment and Plan (Free Text) Assessment: Assessment and Plan (1) Acute respiratory distress Assessment & Plan: improving responded well to pulmonary rx and bb cleared by respiratory for dc Status: Acute (2) Atypical chest pain Assessment & Plan: etiology most likely secondary to respiratory distress and chest wall discomfort improved with bb outpt w/u if recurrent sx Status: Acute (3) CAD (coronary artery disease) Assessment & Plan: No evidence to suggest IHD cont on asa, bb Status: Acute (4) Chronic congestive heart failure Assessment & Plan: diastolic , compensated echo in august didn't evaluated diastolic function and mild pulmonary HTN will initiate on low dose arbs for RAAS modulation outpt f/u stable for dc Status: Acute
[2017-03-07] MEDS: (Lantus) Insulin Glargine, Recombinant SC SCH (22:44)
[2017-03-08] MEDS: Albuterol-Ipratrop 3 mg / 0.5 (3 ml) UD INH SCH ×3 (01:26→13:18)
--- NOTE | 2017-03-08 01:39 | CP.PCM.PN ---
Subjective - Date & Time of Evaluation Date of Evaluation: 03/07/17 Time of Evaluation: 11:30 - Subjective Subjective: Pt still feels that he gets SOB with ambulation and not at his baseline improvement in his palpitations Objective - Vital Signs/Intake and Output Vital Signs (last 24 hours): Temp Pulse Resp BP Pulse Ox 98 F 90 20 101/65 98 03/07/17 15:28 03/08/17 00:30 03/07/17 15:28 03/07/17 15:28 03/07/17 15:28 Intake and Output: 03/07/17 03/08/17 18:59 06:59 Intake Total 350 Balance 350 - Medications Medications: Current Medications Albuterol/Ipratropium (Duoneb 3 Mg/0.5 Mg (3 Ml) Ud) 3 ml INH RQ6 [facility] Last Admin: 03/08/17 01:26 Dose: 3 ml Alprazolam (Xanax) 0.5 mg PO BID PRN PRN Reason: Anxiety Stop: 03/10/17 08:32 Last Admin: 03/07/17 22:45 Dose: 0.5 mg Enoxaparin Sodium (Lovenox) 40 mg SC DAILY [facility] Last Admin: 03/07/17 11:03 Dose: 40 mg Ceftriaxone Sodium 1 gm/ (Sodium Chloride) 100 mls @ 100 mls/hr IVPB DAILY [facility] Last Admin: 03/07/17 10:30 Dose: 100 mls/hr Insulin Glargine (Lantus) 16 unit SC HS [facility] Last Admin: 03/07/17 22:44 Dose: 16 units Insulin Human Regular (Novolin R) 0 unit SC ACHS [facility] PRN Reason: Protocol Last Admin: 03/07/17 21:35 Dose: Not Given Lidocaine (Lidoderm) 1 ea TD DAILY [facility] Last Admin: 03/07/17 11:00 Dose: 1 ea Metformin HCl (Glucophage) 1,000 mg PO BID [facility] Last Admin: 03/07/17 18:27 Dose: 1,000 mg Methylprednisolone (Solu-Medrol) 30 mg IVP Q12 [facility] Last Admin: 03/07/17 22:44 Dose: 30 mg Metoprolol Tartrate (Lopressor) 50 mg PO BID [facility] Last Admin: 03/07/17 18:27 Dose: 50 mg Montelukast Sodium (Singulair) 10 mg PO HS [facility] Last Admin: 03/07/17 22:45 Dose: 10 mg Pantoprazole Sodium (Protonix Ec Tab) 40 mg PO DAILY [facility] Last Admin: 03/07/17 11:00 Dose: 40 mg Promethazine HCl/Codeine (Phenergan/Codeine Oral Syrup) 5 ml PO Q8 PRN PRN Reason: Cough Last Admin: 03/07/17 22:50 Dose: 5 ml Roflumilast (Daliresp) 500 mcg PO DAILY [facility] Last Admin: 03/07/17 11:00 Dose: 500 mcg Rosuvastatin Calcium (Crestor) 10 mg PO HS [facility] Last Admin: 03/07/17 22:45 Dose: 10 mg Fluticasone/Salmeterol (Advair Diskus 250/50) 1 puff INH RBID [facility] Last Admin: 03/07/17 20:02 Dose: 1 puff - Labs Labs: 03/07/17 06:53 03/07/17 06:53 - Constitutional Appears: Well - Head Exam Head Exam: ATRAUMATIC, NORMAL INSPECTION, NORMOCEPHALIC - Eye Exam Eye Exam: EOMI, Normal appearance, PERRL Pupil Exam: NORMAL ACCOMODATION, PERRL - ENT Exam ENT Exam: Mucous Membranes Moist, Normal Exam - Neck Exam Neck Exam: Full ROM, Normal Inspection. absent: Lymphadenopathy - Respiratory Exam Respiratory Exam: Clear to Ausculation Bilateral, NORMAL BREATHING PATTERN - Cardiovascular Exam Cardiovascular Exam: REGULAR RHYTHM, +S1, +S2, Murmur - GI/Abdominal Exam GI & Abdominal Exam: Soft, Normal Bowel Sounds. absent: Tenderness - Rectal Exam Rectal Exam: Deferred - Extremities Exam Extremities Exam: Full ROM, Normal Capillary Refill, Normal Inspection. absent : Joint Swelling, Pedal Edema - Back Exam Back Exam: NORMAL INSPECTION - Neurological Exam Neurological Exam: Alert, Awake, CN II-XII Intact, Oriented x3 - Psychiatric Exam Psychiatric exam: Normal Affect, Normal Mood - Skin Skin Exam: Dry, Intact, Normal Color, Warm Assessment and Plan (1) Acute respiratory distress Assessment & Plan: 2' to COPD echo pending to evaluate filling pressures Status: Acute (2) Atypical chest pain Assessment & Plan: most likely MSK Status: Acute (3) CAD (coronary artery disease) Assessment & Plan: ACS ruled out outpt w/u Status: Acute (4) Chronic congestive heart failure Assessment & Plan: diastolic check BNP inc BB Status: Acute
[2017-03-08 02:33] VITALS: O2SAT 100
[2017-03-08] MEDS: Fluticasone-Salmeterol 250-50mcg Diskus INH SCH (07:26)
[2017-03-08] MEDS: (Novolin R) Insulin Human Regular 100 units/ml vial SC SCH ×3 (08:28→17:22)
[2017-03-08] MEDS: Lidocaine 5% Patch TD SCH (10:42)
[2017-03-08] MEDS: Pantoprazole 40 mg EC Tab PO SCH (10:43)
[2017-03-08] MEDS: Enoxaparin 40 mg Syringe SC SCH (10:43)
[2017-03-08] MEDS: MethylPREDNISolone 40 mg Vial IVP SCH (10:46)
[2017-03-08] MEDS: Promethazine/Cod 6.25mg-10mg/5ml Syr UD PO PRN (10:48)
[2017-03-08 11:13] VITALS: TEMP 98
--- NOTE | 2017-03-08 13:20 | CP.PCM.PN ---
Subjective - Date & Time of Evaluation Date of Evaluation: 03/07/17 Time of Evaluation: 09:00 - Subjective Subjective: Subjective: patient seen and examined today Lying comfortably in no acute distress Denies cough, denies fever chills, denies chest pain Discharge patient home and follow-up in the office Objective - Vital Signs/Intake and Output Vital Signs (last 24 hours): Temp Pulse Resp BP Pulse Ox 98 F 88 20 107/78 100 03/08/17 08:50 03/08/17 08:50 03/08/17 08:50 03/08/17 08:50 03/08/17 08:50 Intake and Output: 03/08/17 03/08/17 06:59 18:59 Intake Total 470 Balance 470 - Medications Medications: Current Medications Albuterol/Ipratropium (Duoneb 3 Mg/0.5 Mg (3 Ml) Ud) 3 ml INH RQ6 [facility] Last Admin: 03/08/17 07:25 Dose: 3 ml Alprazolam (Xanax) 0.5 mg PO BID PRN PRN Reason: Anxiety Stop: 03/10/17 08:32 Last Admin: 03/08/17 10:48 Dose: 0.5 mg Enoxaparin Sodium (Lovenox) 40 mg SC DAILY [facility] Last Admin: 03/08/17 10:43 Dose: 40 mg Ceftriaxone Sodium 1 gm/ (Sodium Chloride) 100 mls @ 100 mls/hr IVPB DAILY [facility] Last Admin: 03/08/17 10:41 Dose: 100 mls/hr Insulin Glargine (Lantus) 16 unit SC HS [facility] Last Admin: 03/07/17 22:44 Dose: 16 units Insulin Human Regular (Novolin R) 0 unit SC ACHS [facility] PRN Reason: Protocol Last Admin: 03/08/17 12:25 Dose: 3 unit Lidocaine (Lidoderm) 1 ea TD DAILY [facility] Last Admin: 03/08/17 10:42 Dose: 1 ea Metformin HCl (Glucophage) 1,000 mg PO BID [facility] Last Admin: 03/08/17 10:43 Dose: 1,000 mg Methylprednisolone (Solu-Medrol) 30 mg IVP Q12 [facility] Last Admin: 03/08/17 10:46 Dose: 30 mg Metoprolol Tartrate (Lopressor) 50 mg PO BID [facility] Last Admin: 03/08/17 10:45 Dose: 50 mg Montelukast Sodium (Singulair) 10 mg PO HS [facility] Last Admin: 03/07/17 22:45 Dose: 10 mg Pantoprazole Sodium (Protonix Ec Tab) 40 mg PO DAILY [facility] Last Admin: 03/08/17 10:43 Dose: 40 mg Promethazine HCl/Codeine (Phenergan/Codeine Oral Syrup) 5 ml PO Q8 PRN PRN Reason: Cough Last Admin: 03/08/17 10:48 Dose: 5 ml Roflumilast (Daliresp) 500 mcg PO DAILY [facility] Last Admin: 03/08/17 10:45 Dose: 500 mcg Rosuvastatin Calcium (Crestor) 10 mg PO HS [facility] Last Admin: 03/07/17 22:45 Dose: 10 mg Fluticasone/Salmeterol (Advair Diskus 250/50) 1 puff INH RBID [facility] Last Admin: 03/08/17 07:26 Dose: 1 puff - Labs Labs: 03/07/17 06:53 03/07/17 06:53 - Constitutional Appears: Well - Head Exam Head Exam: ATRAUMATIC, NORMAL INSPECTION, NORMOCEPHALIC - Eye Exam Eye Exam: EOMI, Normal appearance, PERRL Pupil Exam: NORMAL ACCOMODATION, PERRL - ENT Exam ENT Exam: Mucous Membranes Moist, Normal Exam - Neck Exam Neck Exam: Full ROM, Normal Inspection. absent: Lymphadenopathy - Respiratory Exam Respiratory Exam: Clear to Ausculation Bilateral, NORMAL BREATHING PATTERN - Cardiovascular Exam Cardiovascular Exam: REGULAR RHYTHM, +S1, +S2. absent: Murmur - GI/Abdominal Exam GI & Abdominal Exam: Soft, Normal Bowel Sounds. absent: Tenderness - Rectal Exam Rectal Exam: NORMAL INSPECTION - Exam Exam: Circumcision, NORMAL INSPECTION External exam: NORMAL EXTERNAL EXAM Speculum exam: NORMAL SPECULUM EXAM Bimanual exam: NORMAL BIMANUAL EXAM - Extremities Exam Extremities Exam: Full ROM, Normal Capillary Refill, Normal Inspection. absent : Joint Swelling, Pedal Edema - Back Exam Back Exam: NORMAL INSPECTION - Neurological Exam Neurological Exam: Alert, Awake, CN II-XII Intact, Normal Gait, Oriented x3 - Psychiatric Exam Psychiatric exam: Normal Affect, Normal Mood - Skin Skin Exam: Dry, Intact, Normal Color, Warm - Additional Findings Additional findings: a/p Assessment and Plan (1) Acute respiratory distress Assessment & Plan: 2' to COPD echo pending to evaluate filling pressures Status: Acute (2) Atypical chest pain Assessment & Plan: most likely MSK Status: Acute (3) CAD (coronary artery disease) Assessment & Plan: ACS ruled out outpt w/u Status: Acute (4) Chronic congestive heart failure Assessment & Plan: diastolic check BNP inc BB Assessment and Plan (1) COPD exacerbation Status: Acute (2) Acute bronchitis with asthma with acute exacerbation Status: Acute (3) Acute exacerbation of chronic obstructive pulmonary disease (COPD) Status: Acute (4) Anemia Status: Acute (5) Asthma Status: Acute (6) Atypical chest pain Status: Acute (7) Back ache Status: Acute (8) Bronchitis Status: Acute (9) Bronchospasm Status: Acute (10) CAD (coronary artery disease) Status: Acute (11) COPD (chronic obstructive pulmonary disease) Status: Acute (12) COPD (chronic obstructive pulmonary disease) with acute bronchitis Status: Acute (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 Status: Acute (14) Chest pain Status: Acute (15) Chr obstructive pulmonary disease w/ acute lower respiratory infxn Status: Acute (16) Chronic congestive heart failure Status: Acute (17) Chronic obstructive lung disease Status: Acute (18) Chronic obstructive pulmonary disease with bronchospasm Status: Acute (19) Chronic respiratory failure Status: Acute (20) Clavicle fracture Status: Acute (21) Corneal abrasion Status: Acute (22) Dyspnea Status: Acute (23) Electrolyte abnormality Status: Acute (24) Fever Status: Acute (25) Gout Status: Acute (26) Herpes zoster Status: Acute (27) Hoarse voice quality Status: Acute (28) Hyponatremia Status: Acute (29) Hyponatremia syndrome Status: Acute (30) Influenza Status: Acute (31) Lumbago Status: Acute (32) Oral thrush Status: Acute (33) Pneumonia Status: Acute (34) Post herpetic neuralgia Status: Acute (35) Prophylactic measure Status: Acute (36) Pulmonary embolism Status: Acute (37) RUQ abdominal pain Status: Acute (38) Rash Status: Acute (39) Respiratory distress Status: Acute (40) Respiratory tract infection Status: Acute (41) SOB (shortness of breath) Status: Acute (42) Sepsis Status: Acute (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
[2017-03-08 15:50] VITALS: BP 102/63; PULSE 89
--- NOTE | 2017-03-08 16:03 | CP.PCM.PN ---
Subjective - Date & Time of Evaluation Date of Evaluation: 03/08/17 Time of Evaluation: 16:03 - Subjective Subjective: PT SEEN BY DR. PORTER THIS MORNING AND CLEARED FOR D/C HOME. RX GIVEN FOR REFILLS OF 2 HOME MEDS; PREDNISONE TAPER; METOPROLOL 50 MG PO BID. PT TO F/U WITH DR. ZHANG, DR. REDDY, AND DR ALBERTS (APPT NEXT SUNDAY). FAMILY TO PICK HIM UP THIS EVENING. Objective - Vital Signs/Intake and Output Vital Signs (last 24 hours): Temp Pulse Resp BP Pulse Ox 98 F 89 20 102/63 100 03/08/17 15:49 03/08/17 15:49 03/08/17 15:49 03/08/17 15:49 03/08/17 15:49 Intake and Output: 03/08/17 03/08/17 06:59 18:59 Intake Total 470 Balance 470 - Medications Medications: Current Medications Albuterol/Ipratropium (Duoneb 3 Mg/0.5 Mg (3 Ml) Ud) 3 ml INH RQ6 [facility] Last Admin: 03/08/17 13:18 Dose: 3 ml Alprazolam (Xanax) 0.5 mg PO BID PRN PRN Reason: Anxiety Stop: 03/10/17 08:32 Last Admin: 03/08/17 10:48 Dose: 0.5 mg Enoxaparin Sodium (Lovenox) 40 mg SC DAILY [facility] Last Admin: 03/08/17 10:43 Dose: 40 mg Ceftriaxone Sodium 1 gm/ (Sodium Chloride) 100 mls @ 100 mls/hr IVPB DAILY [facility] Last Admin: 03/08/17 10:41 Dose: 100 mls/hr Insulin Glargine (Lantus) 16 unit SC HS [facility] Last Admin: 03/07/17 22:44 Dose: 16 units Insulin Human Regular (Novolin R) 0 unit SC ACHS [facility] PRN Reason: Protocol Last Admin: 03/08/17 12:25 Dose: 3 unit Lidocaine (Lidoderm) 1 ea TD DAILY [facility] Last Admin: 03/08/17 10:42 Dose: 1 ea Metformin HCl (Glucophage) 1,000 mg PO BID [facility] Last Admin: 03/08/17 10:43 Dose: 1,000 mg Methylprednisolone (Solu-Medrol) 30 mg IVP Q12 [facility] Last Admin: 03/08/17 10:46 Dose: 30 mg Metoprolol Tartrate (Lopressor) 50 mg PO BID [facility] Last Admin: 03/08/17 10:45 Dose: 50 mg Montelukast Sodium (Singulair) 10 mg PO HS [facility] Last Admin: 03/07/17 22:45 Dose: 10 mg Pantoprazole Sodium (Protonix Ec Tab) 40 mg PO DAILY [facility] Last Admin: 03/08/17 10:43 Dose: 40 mg Promethazine HCl/Codeine (Phenergan/Codeine Oral Syrup) 5 ml PO Q8 PRN PRN Reason: Cough Last Admin: 03/08/17 10:48 Dose: 5 ml Roflumilast (Daliresp) 500 mcg PO DAILY [facility] Last Admin: 03/08/17 10:45 Dose: 500 mcg Rosuvastatin Calcium (Crestor) 10 mg PO HS [facility] Last Admin: 03/07/17 22:45 Dose: 10 mg Fluticasone/Salmeterol (Advair Diskus 250/50) 1 puff INH RBID [facility] Last Admin: 03/08/17 07:26 Dose: 1 puff - Labs Labs: 03/07/17 06:53 03/07/17 06:53
--- NOTE | 2017-03-08 23:15 | CP.PCM.DIS ---
Provider - Provider Date of Admission: 03/03/17 00:00 Attending physician: Hal Garcia MD Time Spent in preparation of Discharge (in minutes): 25 Hospital Course - Lab Results Lab Results: Most Recent Lab Values WBC 11.9 K/uL (4.8-10.8) H 03/07/17 06:53 RBC 4.25 Mil/uL (4.40-5.90) L 03/07/17 06:53 Hgb 7.7 g/dL (12.0-18.0) L 03/07/17 06:53 Hct 25.5 % (35.0-51.0) L 03/07/17 06:53 MCV 60.0 fL (80.0-94.0) L 03/07/17 06:53 MCH 18.2 pg (27.0-31.0) L 03/07/17 06:53 MCHC 30.3 g/dL (33.0-37.0) L 03/07/17 06:53 RDW 18.4 % (11.5-14.5) H 03/07/17 06:53 Plt Count 470 K/uL (130-400) H 03/07/17 06:53 MPV 8.4 fL (7.2-11.7) 03/07/17 06:53 Neut % (Auto) 83.4 % (50.0-75.0) H 03/07/17 06:53 Lymph % (Auto) 9.7 % (20.0-40.0) L 03/07/17 06:53 [place] % (Auto) 6.5 % (0.0-10.0) 03/07/17 06:53 Eos % (Auto) 0.1 % (0.0-4.0) 03/07/17 06:53 Baso % (Auto) 0.3 % (0.0-2.0) 03/07/17 06:53 Neut # 9.9 K/uL (1.8-7.0) H 03/07/17 06:53 Lymph # 1.1 K/uL (1.0-4.3) 03/07/17 06:53 [place] # 0.8 K/uL (0.0-0.8) 03/07/17 06:53 Eos # 0.0 K/uL (0.0-0.7) 03/07/17 06:53 Baso # 0.0 K/uL (0.0-0.2) 03/07/17 06:53 Neutrophils % (Manual) 85 % (50-75) H 03/07/17 06:53 Lymphocytes % (Manual) 10 % (20-40) L 03/07/17 06:53 Reactive Lymphs % 1 % (0-0) H 03/07/17 06:53 Monocytes % (Manual) 3 % (0-10) 03/07/17 06:53 Basophils % (Manual) 1 % (0-2) 03/07/17 06:53 Platelet Estimate Slightly increased (NORMAL) H 03/07/17 06:53 Hypochromasia (manual) Moderate 03/07/17 06:53 Poikilocytosis (manual Slight 03/07/17 06:53 Basophilic Stippling Slight 03/07/17 06:53 Anisocytosis (manual) Slight 03/07/17 06:53 Microcytosis (manual) Moderate 03/07/17 06:53 Ovalocytes Moderate 03/07/17 06:53 Schistocytes Slight 03/07/17 06:53 Sodium 136 mmol/L (132-148) 03/07/17 06:53 Potassium 4.2 mmol/L (3.6-5.2) 03/07/17 06:53 Chloride 91 mmol/L (98-107) L 03/07/17 06:53 Carbon Dioxide 32 mmol/L (22-30) H 03/07/17 06:53 Anion Gap 17 (10-20) 03/07/17 06:53 BUN 12 mg/dL (9-20) 03/07/17 06:53 Creatinine 0.8 MG/DL (0.8-1.5) 03/07/17 06:53 Est GFR ( Amer) > 60 03/07/17 06:53 Est GFR (Non-Af Amer) > 60 03/07/17 06:53 POC Glucose (mg/dL) 259 mg/dL (65-110) H 03/08/17 16:33 Random Glucose 297 mg/dL (75-110) H 03/07/17 06:53 Calcium 8.7 mg/dl (8.6-10.4) 03/07/17 06:53 Total Bilirubin 0.3 mg/dL (0.2-1.3) 03/02/17 22:47 AST 31 U/L (17-59) 03/02/17 22:47 ALT 44 U/L (21-72) 03/02/17 22:47 Alkaline Phosphatase 145 U/L (38-126) H 03/02/17 22:47 Total Creatine Kinase 81 U/L (55-170) 03/03/17 17:00 CK-MB (Mass) 3.02 ng/mL (0.0-3.38) 03/03/17 17:00 Troponin I < 0.0120 ng/mL (0.00-0.120) 03/02/17 22:47 Troponin I, Quant < 0.0120 ng/mL (0.00-0.120) 03/03/17 17:00 NT-Pro-B Natriuret Pep 27.2 pg/mL (0-900) 03/02/17 22:47 Total Protein 7.3 g/dL (6.3-8.3) 03/02/17 22:47 Albumin 4.2 g/dL (3.5-5.0) 03/02/17 22:47 Globulin 3.1 gm/dL (2.2-3.9) 03/02/17 22:47 Albumin/Globulin Ratio 1.3 (1.0-2.1) 03/02/17 22:47 - Hospital Course Hospital Course: patient seen and examined today Lying comfortably in no acute distress Denies cough, denies fever chills, denies chest pain Discharge patient home and follow-up in the office Discharge Exam - Head Exam Head Exam: ATRAUMATIC, NORMAL INSPECTION, NORMOCEPHALIC - Eye Exam Eye Exam: EOMI, Normal appearance, PERRL Pupil Exam: NORMAL ACCOMODATION, PERRL - Respiratory Exam Respiratory Exam: Decreased Breath Sounds, Wheezes - Cardiovascular Exam Cardiovascular Exam: REGULAR RHYTHM, +S1, +S2 - GI/Abdominal Exam GI & Abdominal Exam: Normal Bowel Sounds Discharge Plan - Discharge Medications Prescriptions: Metoprolol Tartrate [Lopressor] 50 mg PO BID #60 tab Promethazine/Codeine [Phenergan/Codeine Oral Syrup] 5 ml PO Q8 PRN #240 ml PRN Reason: Cough predniSONE [predniSONE Tab] 30 mg PO DAILY #30 tab Montelukast [Singulair] 10 mg PO HS #30 tab - Follow Up Plan Condition: STABLE Disposition: HOME/ ROUTINE Instructions: Metoprolol (By mouth), Prednisone (By mouth), Montelukast (By mouth), Promethazine/Codeine (By mouth), Heart Failure (DC), Heart Healthy Diet (DC), COPD (Chronic Obstructive Pulmonary Disease) (DC) Additional Instructions: JORDYN RUSTAM JOLLY CON EL DR. GARCIA ENTRE RUSTAM SEMANA EN NICOLE OFICINA--LLAME PARA HACER LA JOLLY. JORDYN RUSTAM JOLLY CON EL DR. NIETO (CARDIOLOGO) EN NICOLE OFICINA EL ROOPA CUATRO DE MAR[place]N (VIERNES)--LLAME PARA HACER LA JOLLY. JORDYN RUSTAM JOLLY CON EL DR. NUNO ENTRE RUSTAM A DOS SEMANAS EN NICOLE OFICINA--LLAME PARA HACER LA JOLLY. SIGUE TOMANDO NICOLE MEDICAMENTO IAIN NORMAL. SI USTED TIENE MAS PREGUNTAS, PUEDE LLAMAR A NICOLE MEDICO PRIMARIO. Referrals: Irish Faulkner MD [Staff Provider] - Ralf Nuno MD [Staff Provider] - Erich Nieto MD [Staff Provider] - Hal Garcia MD [Staff Provider] -
--- NOTE | 2017-03-23 08:59 | CARD ---
APPROVED REPORT EXAM: Two-dimensional and M-mode echocardiogram with Doppler and color Doppler. LEFT VENTRICLE The left ventricle is normal size. There is normal left ventricular wall thickness. Left ventricle systolic function is normal. The Ejection Fraction is >70%. There is normal LV segmental wall motion. Tissue Doppler imaging reveals abnormal left ventricular diastolic dysfunction. RIGHT VENTRICLE The right ventricle is normal size. There is normal right ventricular wall thickness. The right ventricular systolic function is normal. ATRIA The left atrium size is normal. The right atrium size is normal. The interatrial septum is intact with no evidence for an atrial septal defect. AORTIC VALVE The aortic valve is normal in structure. No aortic regurgitation is present. There is no aortic valvular stenosis. There is no aortic valvular vegetation. MITRAL VALVE The mitral valve is normal in structure. There is no evidence of mitral valve prolapse. There is no mitral valve stenosis. Mitral regurgitation is mild. TRICUSPID VALVE The tricuspid valve is normal in structure. There is no tricuspid valve regurgitation noted. PULMONIC VALVE The pulmonic valve is not well visualized. There is no pulmonic valvular regurgitation. GREAT VESSELS The aortic root is normal in size. PERICARDIAL EFFUSION There is no significant pericardial effusion. <Conclusion> Left ventricle systolic function is normal. The Ejection Fraction is >70%. Diastolic dysfunction. There is no aortic valvular vegetation. Mitral regurgitation is mild. There is no tricuspid valve regurgitation noted. There is no pulmonic valvular regurgitation.
== END 2017-03-08 17:55 | disposition home or self-care (01) | DRG 190 ==
LOC: C.ER 22:12 → C.6T 03-03
PROVIDERS: ADMIT Internal Medicine; ATTEND Internal Medicine
PROC: 5A09557 Assistance with Respiratory Ventilation, Greater than 96 Consecutive Hours, Continuous Positive Airway Pressure (ICD-10-PCS; principal; 2017-03-03)
DX: J44.0 Chronic obstructive pulmonary disease with (acute) lower respiratory infection (principal); J11.08 Influenza due to unidentified influenza virus with specified pneumonia; E87.2 Acidosis; J96.10 Chronic respiratory failure, unspecified whether with hypoxia or hypercapnia; B37.0 Candidal stomatitis; I13.0 Hypertensive heart and chronic kidney disease with heart failure and stage 1 through stage 4 chronic kidney disease, or unspecified chronic kidney disease; J20.9 Acute bronchitis, unspecified; E87.1 Hypo-osmolality and hyponatremia; B02.29 Other postherpetic nervous system involvement; J45.901 Unspecified asthma with (acute) exacerbation; J21.9 Acute bronchiolitis, unspecified; L03.90 Cellulitis, unspecified; Q24.5 Malformation of coronary vessels; E11.22 Type 2 diabetes mellitus with diabetic chronic kidney disease; J44.1 Chronic obstructive pulmonary disease with (acute) exacerbation; E09.65 Drug or chemical induced diabetes mellitus with hyperglycemia; D64.9 Anemia, unspecified; D75.89 Other specified diseases of blood and blood-forming organs; E11.65 Type 2 diabetes mellitus with hyperglycemia; E78.00 Pure hypercholesterolemia, unspecified; E78.5 Hyperlipidemia, unspecified; F41.1 Generalized anxiety disorder; G47.33 Obstructive sleep apnea (adult) (pediatric); I25.10 Atherosclerotic heart disease of native coronary artery without angina pectoris; M10.9 Gout, unspecified; N18.9 Chronic kidney disease, unspecified; Z87.01 Personal history of pneumonia (recurrent); Z87.891 Personal history of nicotine dependence

== ENCOUNTER 2017-03-19 00:10 | Inpatient (IN) | payer MEDICARE ==
[2017-03-19 00:27] VITALS: BMI 27.3
[2017-03-19] MEDS ORDERED: Sodium Chloride 0.9% 1,000 ML IV ONE (00:27)
[2017-03-19] MEDS ORDERED: Albuterol-Ipratrop 3 mg / 0.5 (3 ml) UD INH STA ×2 (00:28→01:46)
[2017-03-19] MEDS ORDERED: Albuterol-Ipratrop 3 mg / 0.5 (3 ml) UD ONE ×2 (00:32→01:49)
[2017-03-19] MEDS ORDERED: Sodium Chloride 0.9% 1,000 ML ONE (00:33)
[2017-03-19 01:06] LABS: ALB/GLOB RATIO 1.5 (1.0-2.1); ALKALINE PHOSPHATASE 121 U/L (38-126); ALT/SGPT 41 U/L (21-72); AST/SGOT 21 U/L (17-59); BILIRUBIN,TOTAL 0.2 mg/dL (0.2-1.3); BLOOD UREA NITROGEN 6 mg/dL (9-20); CALCIUM 8.9 mg/dl (8.6-10.4); CARBON DIOXIDE 28 mmol/L (22-30); CHLORIDE 94 mmol/L (98-107); GFR AFRICAN-AMERICAN > 60; GLUCOSE,RANDOM 210 mg/dL (75-110); POTASSIUM 3.6 mmol/L (3.6-5.2); SODIUM 136 mmol/L (132-148); TOTAL PROTEIN 6.3 g/dL (6.3-8.3)
[2017-03-19 01:30] LABS: BASO # 0.1 K/uL (0.0-0.2); BASO % 0.9 % (0.0-2.0); EOS # 0.3 K/uL (0.0-0.7); EOS % 2.2 % (0.0-4.0); HEMATOCRIT 27.1 % (35.0-51.0); LYMPH # 2.2 K/uL (1.0-4.3); LYMPH % 17.9 % (20.0-40.0); MEAN CELL VOLUME 58.3 fL (80.0-94.0); MEAN CORPUSCULAR HGB CONC 29.1 g/dL (33.0-37.0); MEAN PLATELET VOLUME 8.5 fL (7.2-11.7); MONO % 7.7 % (0.0-10.0); NRBC % 0.1 % (0.0-2.0); RED CELL DISTRIBUTION WIDTH 19.1 % (11.5-14.5); WHITE BLOOD COUNT 12.6 K/uL (4.8-10.8)
--- NOTE | 2017-03-19 01:39 | C.PDOC ---
History Of Present Illness 66 year old male presents to the ED with complaints of SOB. Patient has bi- weekly to monthly admission for COPD and has not followed up with Dr. Garcia. Patient denies chest pain, weakness, numbness or other complaints at this time. Time Seen by Provider: 03/19/17 00:22 Chief Complaint (Nursing): Respiratory Distress History Per: Patient History/Exam Limitations: no limitations Onset/Duration Of Symptoms: Persistent Current Symptoms Are (Timing): Still Present Associated Symptoms: denies: Fever, Chills Reports Recently: Seen In ED Recent travel outside of the [place]: No Additional History Per: Prior Records Past Medical History Reviewed: Historical Data, Nursing Documentation, Vital Signs Vital Signs: Last Vital Signs Temp 98.3 F 03/19/17 00:46 Pulse 136 H 03/19/17 00:46 Resp 24 03/19/17 00:46 BP 107/71 03/19/17 00:46 Pulse Ox 97 03/19/17 01:40 - Medical History PMH: Anxiety, Arthritis (BACK; KNEES), Asthma, Bronchitis, CHF, COPD, Diabetes, Emphysema, HTN, Hypercholesterolemia, Pneumonia, Chronic Kidney Disease, Sleep Apnea - [facility] Procedures ASSISTANCE WITH RESPIRATORY VENTILATION, 24-96 HRS, CPAP (01/24/17) ASSISTANCE WITH RESPIRATORY VENTILATION, <24 HRS, CPAP (07/08/16) ASSISTANCE WITH RESPIRATORY VENTILATION, >96 HRS, CPAP (03/03/17) CONTINUOUS INVASIVE MECHANICAL VENTILATION <96 CONSEC HRS (11/29/14) INFLUENZA VACCINATION (06/02/14) INSERT ENDOTRACHEAL TUBE (11/29/14) LARYGNOSCOPY AND OTH TRACHEOSCOPY (04/18/15) MEASURE OF CARDIAC SAMPL & PRESSURE, L HEART, PERC APPROACH (12/01/15) NON-INVASIVE MECHANICAL VENTILATION (04/18/15) Family History: States: Unknown Family Hx - Social History Hx Tobacco Use: Yes (8 years ppd smoker. quit 1.5 years ago) Hx Alcohol Use: No Hx Substance Use: No - Immunization History Hx Tetanus Toxoid Vaccination: Yes Hx Influenza Vaccination: Yes Hx Pneumococcal Vaccination: Yes Review Of Systems Constitutional: Negative for: Fever, Chills Cardiovascular: Negative for: Chest Pain Respiratory: Positive for: Shortness of Breath Gastrointestinal: Negative for: Nausea, Vomiting, Abdominal Pain, Diarrhea Neurological: Negative for: Weakness, Numbness Physical Exam - Physical Exam Appears: Non-toxic, Other (Moderate respiratory distress ) Skin: Warm, Dry Head: Atraumatic Eye(s): bilateral: Normal Inspection, PERRL, EOMI Oral Mucosa: Moist Neck: Supple Chest: Symmetrical, No Deformity Cardiovascular: Other (Tachycardic ) Respiratory: Rhonchi (scattered), Wheezing (scattered), Other (distant breath sounds ) Neurological/Psych: Oriented x3, Normal Speech, Normal Cognition, Normal Cranial Nerves, Normal Motor, Normal Sensation ED Course And Treatment - Laboratory Results Result Diagrams: 03/19/17 00:40 03/19/17 00:40 Lab Interpretation: Abnormal (+ mild leukocytosis, usually on steroids, baseline anemia is IMPROVED from prior 7.7) ECG Rhythm: Sinus Tachycardia (136 bpm) O2 Sat by Pulse Oximetry: 97 (room air ) - Radiology CXR: Interpreted by Me CXR Interpretation: Yes: No Acute Disease, Other (+ hyperinflated) Reevaluation Time: 01:43 Reassessment Condition: Improved - Physician Consult Information Outcome Of Conversation: 0145: d/w Dr. Garcia- PMD- ok to Tele Obs. Medical Decision Making Medical Decision Making: typical COPD exacerbation chronic anemia Disposition Doctor Will See Patient In The: Hospital Counseled Patient/Family Regarding: Studies Performed, Diagnosis - Disposition Referrals: Hal Garcia MD [Primary Care Provider] - Disposition: HOSPITALIZED Disposition Time: :44 Condition: FAIR Forms: [facility] (Pu[place]ican) - Clinical Impression Clinical Impression: COPD (chronic obstructive pulmonary disease) with emphysema, Anemia - Scribe Statement The provider has reviewed the documentation as recorded by the Scribilya Serrato All medical record entries made by the Scribe were at my direction and personally dictated by me. I have reviewed the chart and agree that the record accurately reflects my personal performance of the history, physical exam, medical decision making, and the department course for this patient. I have also personally directed, reviewed, and agree with the discharge instructions and disposition.
[2017-03-19] MEDS ORDERED: (Novolog) Insulin Aspart, Recombinant 100 u/ml 10 ml vial SC SCH (07:30)
[2017-03-19] MEDS: Albuterol-Ipratrop 3 mg / 0.5 (3 ml) UD INH SCH ×3 (08:03→20:11)
--- NOTE | 2017-03-19 08:37 | RAD ---
PROCEDURE: CHEST RADIOGRAPH, 1 VIEW HISTORY: Shortness of breath COMPARISON: None available. FINDINGS: LUNGS: Hyperinflation suggestive for COPD and or emphysematous changes. Biapical pleural thickening with upper lobe granulomatous changes. Diffuse increased interstitial lung markings. Mild patchy bibasilar atelectasis. Bibasilar breast shadows. PLEURA: No pneumothorax or pleural fluid seen. CARDIOVASCULAR: Normal. OSSEOUS STRUCTURES: Degenerative changes in the spine and shoulders. VISUALIZED UPPER ABDOMEN: Normal. OTHER FINDINGS: None. IMPRESSION: Hyperinflation suggestive for COPD and or emphysematous changes. Biapical pleural thickening with upper lobe granulomatous changes. Diffuse increased interstitial lung markings. Mild patchy bibasilar atelectasis. Bibasilar breast shadows.
[2017-03-19] MEDS: MethylPREDNISolone 40 mg Vial IVP SCH ×2 (09:50→21:33)
[2017-03-19] MEDS: Enoxaparin 40 mg Syringe SC SCH (09:50)
[2017-03-19] MEDS: (Novolog) Insulin Aspart, Recombinant 100 u/ml 10 ml vial SC SCH ×4 (09:50→21:28)
[2017-03-19] MEDS: guaiFENesin 600 mg ER Tab PO SCH ×2 (10:40→17:23)
[2017-03-19] MEDS: Vitamin B Complex/Vitamin C Tab PO SCH (10:40)
--- NOTE | 2017-03-19 10:54 | CARD ---
APPROVED REPORT EKG Measurement Heart [id number] <Conclusion> Sinus tachycardia Rightward axis Borderline ECG
[2017-03-19 12:07] LABS: BASO # 0.1 K/uL (0.0-0.2); BASO % 0.4 % (0.0-2.0); HEMATOCRIT 26.5 % (35.0-51.0); LYMPH # 0.3 K/uL (1.0-4.3); LYMPH % 2.6 % (20.0-40.0); MEAN CELL VOLUME 58.3 fL (80.0-94.0); MEAN CORPUSCULAR HEMOGLOBIN 17.3 pg (27.0-31.0); MEAN CORPUSCULAR HGB CONC 29.7 g/dL (33.0-37.0); MEAN PLATELET VOLUME 8.5 fL (7.2-11.7); MONO # 0.3 K/uL (0.0-0.8); PLATELET COUNT 274 K/uL (130-400); WHITE BLOOD COUNT 13.5 K/uL (4.8-10.8)
[2017-03-19 12:56] LABS: NEUTROPHIL 95 % (50-75); TOTAL CELLS COUNTED 100
[2017-03-19] MEDS: Pantoprazole 40 mg EC Tab PO SCH (13:49)
[2017-03-19 14:03] LABS: IRON 11 ug/dL (49-181)
[2017-03-19 14:07] LABS: IRON 10 ug/dL (49-181)
--- NOTE | 2017-03-19 15:39 | CP.PCM.CON ---
History of Present Illness - History of Present Illness History of Present Illness: Reason for consultation: Respiratory distress Patient is a 66 year old male who presented with SOB with history of COPD exacerbations monthly and poor follow-up. In the ED, patient was given Duoneb X4 , solu-medrol 125mg X2, and normal saline infusion. Currently, patients states his SOB is worse than yesterday, also complains of fatigue and dry cough. Patient is on cpap at night for REYNA and nasal cannula during the day. PMHx: Anxiety, arthritis, asthma, bronchitis, COPD, CHF, DM, Emphysema, HTN, hypercholesterolemia, pneumonia, CKD, REYNA Allergies: Acetaminophen, fish, shrimp Social hx: 8 year smoking history, 1 PPD; quit 2 years ago 03/19/17 CXR: hyperinflation suggestive of COPD; bilateral pleural thickening with upper lobe granulomatous changes; diffuse interstitial lung markings; mild patchy basilar atelectasis 03/19/17 ECG: sinus tachy at 136 BPM 08/16/16 ECHO: LVEF 56% Past Patient History - Infectious Disease Hx of Infectious Diseases: None - Past Medical History & Family History Past Medical History?: Yes - Past Social History Smoking Status: Former Smoker - CARDIAC Hx Congestive Heart Failure: Yes Hx Hypercholesterolemia: Yes Hx Hypertension: Yes - PULMONARY Hx Asthma: Yes Hx Bronchitis: Yes Hx Chronic Obstructive Pulmonary Disease (COPD): Yes Hx Emphysema: Yes Hx Pneumonia: Yes Hx Sleep Apnea: Yes - NEUROLOGICAL Hx Neurological Disorder: No - HEENT Hx HEENT Problems: Yes Hx Cataracts: Yes (left cataract removed, r cataract) Other/Comment: wears eyeglasses for distance - RENAL Hx Chronic Kidney Disease: Yes - ENDOCRINE/METABOLIC Hx Endocrine Disorders: Yes Hx Diabetes Mellitus Type 2: Yes - HEMATOLOGICAL/ONCOLOGICAL Hx Blood Disorders: No - INTEGUMENTARY Hx Dermatological Problems: No - MUSCULOSKELETAL/RHEUMATOLOGICAL Hx Arthritis: Yes (BACK; KNEES) Hx Falls: No - GASTROINTESTINAL Hx Gastritis: No - PSYCHIATRIC Hx Anxiety: Yes Hx Substance Use: No - SURGICAL HISTORY Hx Surgeries: Yes Hx Cardiac Catheterization: Yes (11/2015) - ANESTHESIA Hx Anesthesia: Yes Hx Anesthesia Reactions: Yes (pt dont know. aware) Hx Malignant Hyperthermia: No Meds Allergies/Adverse Reactions: Allergies Allergy/AdvReac Type Severity Reaction Status Date / Time acetaminophen [From Tylenol] Allergy RASH Verified 03/02/17 22:26 FISH Allergy SWELLING Verified 03/02/17 22:26 shrimp Allergy SHORTNESS Verified 03/02/17 22:26 OF BREATH - Medications Medications: Current Medications Albuterol/Ipratropium (Duoneb 3 Mg/0.5 Mg (3 Ml) Ud) 3 ml INH RQ6 [facility] Last Admin: 03/19/17 13:47 Dose: 3 ml Alprazolam (Xanax) 0.5 mg PO BID PRN PRN Reason: Anxiety Stop: 03/26/17 08:44 Last Admin: 03/19/17 09:58 Dose: 0.5 mg Budesonide (Pulmicort Respules) 0.5 mg INH RBID [facility] Docusate Sodium (Colace) 100 mg PO BID [facility] Enoxaparin Sodium (Lovenox) 40 mg SC DAILY [facility] Last Admin: 03/19/17 09:50 Dose: 40 mg Guaifenesin (Mucinex La) 600 mg PO BID [facility] Last Admin: 03/19/17 10:40 Dose: 600 mg Home Med (Patient's Own Inhalation Solution) 1 ml INH BID [facility] Insulin Aspart (Novolog) 0 unit SC ACHS [facility] PRN Reason: Protocol Last Admin: 03/19/17 12:08 Dose: 5 unit Insulin Glargine (Lantus) 16 unit SC HS [facility] Metformin HCl (Glucophage) 1,000 mg PO BID [facility] Last Admin: 03/19/17 09:51 Dose: 1,000 mg Methylprednisolone (Solu-Medrol) 40 mg IVP Q12 [facility] Last Admin: 03/19/17 09:50 Dose: 40 mg Montelukast Sodium (Singulair) 10 mg PO HS [facility] Pantoprazole Sodium (Protonix Ec Tab) 40 mg PO DAILY [facility] Last Admin: 03/19/17 13:49 Dose: 40 mg Polyethylene Glycol (Miralax) 17 gm PO DAILY [facility] Roflumilast (Daliresp) 500 mcg PO DAILY [facility] Last Admin: 03/19/17 10:40 Dose: 500 mcg Fluticasone/Salmeterol (Advair Diskus 250/50) 1 puff INH RBID [facility] Vitamin B Complex/Vitamin C (Berocca) 1 tab PO DAILY [facility] Last Admin: 03/19/17 10:40 Dose: 1 tab Physical Exam - Head Exam Head Exam: ATRAUMATIC, NORMOCEPHALIC - Eye Exam Eye Exam: Normal appearance - Neck Exam Neck exam: Positive for: Normal Inspection - Respiratory Exam Respiratory Exam: Decreased Breath Sounds - Cardiovascular Exam Cardiovascular Exam: Tachycardia, REGULAR RHYTHM - GI/Abdominal Exam GI & Abdominal Exam: Normal Bowel Sounds, Soft - Extremities Exam Extremities exam: Positive for: normal inspection Results - Vital Signs Recent Vital Signs: Last Vital Signs Temp 97.6 F 03/19/17 07:14 Pulse 107 H 03/19/17 13:51 Resp 16 03/19/17 10:20 BP 105/75 03/19/17 09:29 Pulse Ox 97 03/19/17 09:32 - Labs Result Diagrams: 03/19/17 12:00 03/19/17 00:40 Labs: Laboratory Results - last 24 hr 03/19/17 03/19/17 03/19/17 07:40 11:28 12:00 WBC RBC Hgb Hct MCV MCH MCHC RDW Plt Count MPV Neut % (Auto) Lymph % (Auto) [place] % (Auto) Eos % (Auto) Baso % (Auto) Neut # Lymph # [place] # Eos # Baso # Neutrophils % (Manual) Band Neutrophils % Lymphocytes % (Manual) Monocytes % (Manual) Platelet Estimate Hypochromasia (manual) Poikilocytosis (manual Basophilic Stippling Anisocytosis (manual) Ovalocytes POC Glucose (mg/dL) 371 H 357 H Iron TIBC % Saturation Total Creatine Kinase 45 L CK-MB (Mass) 1.71 Troponin I, Quant < 0.0120 Blood Type Antibody Screen 03/19/17 03/19/17 03/19/17 12:00 12:00 13:44 WBC 13.5 H RBC 4.55 Hgb 7.9 L Hct 26.5 L MCV 58.3 L MCH 17.3 L MCHC 29.7 L RDW 19.0 H Plt Count 274 MPV 8.5 Neut % (Auto) 95.0 H Lymph % (Auto) 2.[address] [place] % (Auto) 2.0 Eos % (Auto) 0.0 Baso % (Auto) 0.4 Neut # 12.9 H Lymph # 0.[address] [place] # 0.3 Eos # 0.0 Baso # 0.1 Neutrophils % (Manual) 95 H Band Neutrophils % 1 Lymphocytes % (Manual) 1 L Monocytes % (Manual) 3 Platelet Estimate Normal Hypochromasia (manual) Moderate Poikilocytosis (manual Slight Basophilic Stippling Slight Anisocytosis (manual) Moderate Ovalocytes Moderate POC Glucose (mg/dL) Iron 11 L TIBC 380 % Saturation 3 L Total Creatine Kinase CK-MB (Mass) Troponin I, Quant Blood Type O POSITIVE Antibody Screen Negative 03/19/17 13:44 WBC RBC Hgb Hct MCV MCH MCHC RDW Plt Count MPV Neut % (Auto) Lymph % (Auto) [place] % (Auto) Eos % (Auto) Baso % (Auto) Neut # Lymph # [place] # Eos # Baso # Neutrophils % (Manual) Band Neutrophils % Lymphocytes % (Manual) Monocytes % (Manual) Platelet Estimate Hypochromasia (manual) Poikilocytosis (manual Basophilic Stippling Anisocytosis (manual) Ovalocytes POC Glucose (mg/dL) Iron 10 L TIBC 386 % Saturation 3 L Total Creatine Kinase CK-MB (Mass) Troponin I, Quant Blood Type Antibody Screen Assessment & Plan (1) COPD (chronic obstructive pulmonary disease) with emphysema Status: Acute (2) Acute respiratory distress Status: Acute
--- NOTE | 2017-03-19 17:54 | CP.PCM.PN ---
Subjective - Date & Time of Evaluation Date of Evaluation: 03/19/17 Time of Evaluation: 11:20 - Subjective Subjective: Pt seen and examine dtoday , c/o sob, congestion , weakness, palpitations, constipation , denies chest pain, head ache N/V Objective - Vital Signs/Intake and Output Vital Signs (last 24 hours): Temp Pulse Resp BP Pulse Ox 97.8 F 66 20 148/68 97 03/19/17 15:55 03/19/17 15:55 03/19/17 15:55 03/19/17 15:55 03/19/17 15:55 Intake and Output: 03/19/17 03/19/17 06:59 18:59 Intake Total 480 Output Total 880 Balance -400 - Medications Medications: Current Medications Albuterol/Ipratropium (Duoneb 3 Mg/0.5 Mg (3 Ml) Ud) 3 ml INH RQ6 [facility] Last Admin: 03/19/17 13:47 Dose: 3 ml Alprazolam (Xanax) 0.5 mg PO BID PRN PRN Reason: Anxiety Stop: 03/26/17 08:44 Last Admin: 03/19/17 09:58 Dose: 0.5 mg Budesonide (Pulmicort Respules) 0.5 mg INH RBID [facility] Docusate Sodium (Colace) 100 mg PO BID [facility] Last Admin: 03/19/17 17:23 Dose: 100 mg Enoxaparin Sodium (Lovenox) 40 mg SC DAILY [facility] Last Admin: 03/19/17 09:50 Dose: 40 mg Ferric Sodium Gluconate Complex (Ferrlecit) 125 mg IVPB DAILY [facility] Stop: 03/25/17 10:01 Guaifenesin (Mucinex La) 600 mg PO BID [facility] Last Admin: 03/19/17 17:23 Dose: 600 mg Home Med (Patient's Own Inhalation Solution) 1 ml INH BID [facility] Insulin Aspart (Novolog) 0 unit SC ACHS [facility] PRN Reason: Protocol Last Admin: 03/19/17 16:54 Dose: 4 unit Insulin Glargine (Lantus) 16 unit SC HS [facility] Metformin HCl (Glucophage) 1,000 mg PO BID [facility] Last Admin: 03/19/17 17:23 Dose: 1,000 mg Methylprednisolone (Solu-Medrol) 40 mg IVP Q12 [facility] Last Admin: 03/19/17 09:50 Dose: 40 mg Montelukast Sodium (Singulair) 10 mg PO HS [facility] Pantoprazole Sodium (Protonix Ec Tab) 40 mg PO DAILY [facility] Last Admin: 03/19/17 13:49 Dose: 40 mg Polyethylene Glycol (Miralax) 17 gm PO DAILY [facility] Roflumilast (Daliresp) 500 mcg PO DAILY [facility] Last Admin: 03/19/17 10:40 Dose: 500 mcg Fluticasone/Salmeterol (Advair Diskus 250/50) 1 puff INH RBID [facility] Vitamin B Complex/Vitamin C (Berocca) 1 tab PO DAILY [facility] Last Admin: 03/19/17 10:40 Dose: 1 tab - Labs Labs: 03/19/17 12:00 - Constitutional Appears: Well (IN MODERATE RESP. DISTRESS ) - Respiratory Exam Respiratory Exam: Decreased Breath Sounds, Respiratory Distress (mild) - Cardiovascular Exam Cardiovascular Exam: Tachycardia, +S1, +S2 - Neurological Exam Neurological Exam: Alert, Awake, Oriented x3 Assessment and Plan - Assessment and Plan (Free Text) Assessment: A/P 66 YR OLD male with PMHX of COPD admitted for sob/exc. copd today hgb 7.9 repeat hgb 7.9 patient symptomatic will transfuse 1 unit of PRBC and repeat cbc in am will do iron studies and start ferrlicet IV occult blood Risks/ benefit /alternative treatment of PRBC transfusion explained to patient and consent obtained from patient The above plan discussed with Dr. Garcia , who agrees with above plan
[2017-03-19] MEDS: Budesonide 0.5 mg/2 ml Inhal Susp UD INH SCH (20:11)
[2017-03-19] MEDS: Fluticasone-Salmeterol 250-50mcg Diskus INH SCH (20:11)
[2017-03-19] MEDS: (Lantus) Insulin Glargine, Recombinant SC SCH (21:32)
--- NOTE | 2017-03-19 23:53 | CP.PCM.HP ---
History of Present Illness - History of Present Illness History of Present Illness: 66 Y/O WITH COPD, DM DUE TO STEROIDS AND HE CAME WITH WORSENING SHORTNESS OF BREATH, COUGH WHEEZING, MALAISE , ANIREXIA, AND HE IS ANXIOUS Present on Admission - Present on Admission Any Indicators Present on Admission: Yes History of DVT/PE: No History of Uncontrolled Diabetes: Yes Urinary Catheter: No Decubitus Ulcer Present: No Review of Systems - Review of Systems Systems not reviewed;Unavailable: Respiratory Distress - Constitutional Constitutional: Anorexia, Headache, Night Sweats - EENT Nose/Mouth/Throat: Nasal Congestion, Nasal Discharge - Cardiovascular Cardiovascular: Dyspnea - Respiratory Respiratory: Cough, Dyspnea, Dyspnea on Exertion, Pain on Inspiration, Chest Congestion - Gastrointestinal Gastrointestinal: Belching, Bloating - Genitourinary Genitourinary: Urinary Urgency - Musculoskeletal Musculoskeletal: Arthralgias - Psychiatric Psychiatric: Anhedonia, Anxiety - Endocrine Endocrine: Excessive Sweating, Fatigue - Hematologic/Lymphatic Hematologic: Easy Bruising Past Patient History - Infectious Disease Hx of Infectious Diseases: None - Past Medical History & Family History Past Medical History?: Yes - Past Social History Smoking Status: Former Smoker - CARDIAC Hx Congestive Heart Failure: Yes Hx Hypercholesterolemia: Yes Hx Hypertension: Yes - PULMONARY Hx Asthma: Yes Hx Bronchitis: Yes Hx Chronic Obstructive Pulmonary Disease (COPD): Yes Hx Emphysema: Yes Hx Pneumonia: Yes Hx Sleep Apnea: Yes - NEUROLOGICAL Hx Neurological Disorder: No - HEENT Hx HEENT Problems: Yes Hx Cataracts: Yes (left cataract removed, r cataract) Other/Comment: wears eyeglasses for distance - RENAL Hx Chronic Kidney Disease: Yes - ENDOCRINE/METABOLIC Hx Endocrine Disorders: Yes Hx Diabetes Mellitus Type 2: Yes - HEMATOLOGICAL/ONCOLOGICAL Hx Blood Disorders: No - INTEGUMENTARY Hx Dermatological Problems: No - MUSCULOSKELETAL/RHEUMATOLOGICAL Hx Arthritis: Yes (BACK; KNEES) Hx Falls: No - GASTROINTESTINAL Hx Gastritis: No - PSYCHIATRIC Hx Anxiety: Yes Hx Substance Use: No - SURGICAL HISTORY Hx Surgeries: Yes Hx Cardiac Catheterization: Yes (11/2015) - ANESTHESIA Hx Anesthesia: Yes Hx Anesthesia Reactions: Yes (pt dont know. aware) Hx Malignant Hyperthermia: No Meds Allergies/Adverse Reactions: Allergies Allergy/AdvReac Type Severity Reaction Status Date / Time acetaminophen [From Tylenol] Allergy RASH Verified 03/02/17 22:26 FISH Allergy SWELLING Verified 03/02/17 22:26 shrimp Allergy SHORTNESS Verified 03/02/17 22:26 OF BREATH Physical Exam - Constitutional Appears: Non-toxic, In Acute Distress, Chronically Ill - Eye Exam Eye Exam: EOMI, Normal appearance, PERRL Pupil Exam: NORMAL ACCOMODATION - ENT Exam ENT Exam: Mucous Membranes Moist, Normal Exam - Neck Exam Neck exam: Positive for: Normal Inspection - Respiratory Exam Respiratory Exam: Decreased Breath Sounds, Prolonged Expiratory Phase, Rhonchi, Wheezes - Cardiovascular Exam Cardiovascular Exam: Tachycardia, REGULAR RHYTHM, +S1, +S2 - GI/Abdominal Exam GI & Abdominal Exam: Normal Bowel Sounds - Rectal Exam Rectal Exam: NORMAL INSPECTION - Extremities Exam Extremities exam: Positive for: normal inspection - Back Exam Back exam: NORMAL INSPECTION - Psychiatric Exam Psychiatric exam: Anxious, Flat Affect - Skin Skin Exam: Dry, Intact, Normal Color, Warm Results - Vital Signs Recent Vital Signs: Last Vital Signs Temp 98.2 F 03/19/17 22:46 Pulse 132 H 03/19/17 22:46 Resp 18 03/19/17 22:46 BP 118/70 03/19/17 22:46 Pulse Ox 100 03/19/17 20:18 - Labs Result Diagrams: 03/19/17 12:00 03/19/17 00:40 Labs: Laboratory Results - last 24 hr 03/19/17 03/19/17 03/19/17 07:40 11:28 12:00 WBC RBC Hgb Hct MCV MCH MCHC RDW Plt Count MPV Neut % (Auto) Lymph % (Auto) [place] % (Auto) Eos % (Auto) Baso % (Auto) Neut # Lymph # [place] # Eos # Baso # Neutrophils % (Manual) Band Neutrophils % Lymphocytes % (Manual) Monocytes % (Manual) Platelet Estimate Hypochromasia (manual) Poikilocytosis (manual Basophilic Stippling Anisocytosis (manual) Ovalocytes POC Glucose (mg/dL) 371 H 357 H Iron TIBC % Saturation Total Creatine Kinase 45 L CK-MB (Mass) 1.71 Troponin I, Quant < 0.0120 Blood Type Antibody Screen 03/19/17 03/19/17 03/19/17 12:00 12:00 13:44 WBC 13.5 H RBC 4.55 Hgb 7.9 L Hct 26.5 L MCV 58.3 L MCH 17.3 L MCHC 29.7 L RDW 19.0 H Plt Count 274 MPV 8.5 Neut % (Auto) 95.0 H Lymph % (Auto) 2.6 L [place] % (Auto) 2.0 Eos % (Auto) 0.0 Baso % (Auto) 0.4 Neut # 12.9 H Lymph # 0.3 L [place] # 0.3 Eos # 0.0 Baso # 0.1 Neutrophils % (Manual) 95 H Band Neutrophils % 1 Lymphocytes % (Manual) 1 L Monocytes % (Manual) 3 Platelet Estimate Normal Hypochromasia (manual) Moderate Poikilocytosis (manual Slight Basophilic Stippling Slight Anisocytosis (manual) Moderate Ovalocytes Moderate POC Glucose (mg/dL) Iron 11 L TIBC 380 % Saturation 3 L Total Creatine Kinase CK-MB (Mass) Troponin I, Quant Blood Type O POSITIVE Antibody Screen Negative 03/19/17 03/19/17 03/19/17 13:44 16:44 21:09 WBC RBC Hgb Hct MCV MCH MCHC RDW Plt Count MPV Neut % (Auto) Lymph % (Auto) [place] % (Auto) Eos % (Auto) Baso % (Auto) Neut # Lymph # [place] # Eos # Baso # Neutrophils % (Manual) Band Neutrophils % Lymphocytes % (Manual) Monocytes % (Manual) Platelet Estimate Hypochromasia (manual) Poikilocytosis (manual Basophilic Stippling Anisocytosis (manual) Ovalocytes POC Glucose (mg/dL) 328 H 212 H Iron 10 L TIBC 386 % Saturation 3 L Total Creatine Kinase CK-MB (Mass) Troponin I, Quant Blood Type Antibody Screen Assessment & Plan (1) Anemia Assessment and Plan: bt, stool w/u Status: Acute Priority: Medium (2) COPD (chronic obstructive pulmonary disease) with emphysema Assessment and Plan: ON SOLUMEDROL, NEBULIZER Status: Acute Priority: High (3) Allergic rhinitis Status: Chronic Priority: Medium (4) Diabetes Status: Chronic Priority: Medium
[2017-03-20] MEDS: Albuterol-Ipratrop 3 mg / 0.5 (3 ml) UD INH SCH ×4 (01:18→20:21)
[2017-03-20] MEDS: Budesonide 0.5 mg/2 ml Inhal Susp UD INH SCH ×2 (07:30→20:21)
[2017-03-20] MEDS: Fluticasone-Salmeterol 250-50mcg Diskus INH SCH ×2 (07:30→20:21)
[2017-03-20] MEDS: (Novolog) Insulin Aspart, Recombinant 100 u/ml 10 ml vial SC SCH ×4 (08:41→22:11)
[2017-03-20 09:08] LABS: BASO % 0.1 % (0.0-2.0); EOS % 0.1 % (0.0-4.0); HEMATOCRIT 27.5 % (35.0-51.0); LYMPH # 1.3 K/uL (1.0-4.3); LYMPH % 8.9 % (20.0-40.0); MEAN CORPUSCULAR HEMOGLOBIN 18.5 pg (27.0-31.0); MEAN CORPUSCULAR HGB CONC 30.1 g/dL (33.0-37.0); MONO # 0.7 K/uL (0.0-0.8); PLATELET COUNT 260 K/uL (130-400); RED CELL DISTRIBUTION WIDTH 21.2 % (11.5-14.5); WHITE BLOOD COUNT 15.1 K/uL (4.8-10.8)
[2017-03-20 09:13] LABS: MEAN CELL VOLUME 61.5 fL (80.0-94.0)
[2017-03-20 09:36] LABS: NEUTROPHIL 87 % (50-75); TOTAL CELLS COUNTED 100
[2017-03-20] MEDS: POLYETHYLENE GLYCOL 3350 17 GM/Dose PACKET PO SCH (09:43)
[2017-03-20] MEDS: Enoxaparin 40 mg Syringe SC SCH (09:43)
[2017-03-20] MEDS: Pantoprazole 40 mg EC Tab PO SCH (09:44)
[2017-03-20] MEDS: Vitamin B Complex/Vitamin C Tab PO SCH (09:44)
[2017-03-20] MEDS: Ferric Sodium Gluconat Complex 62.5 mg/5 ml Vial IVPB SCH (09:44)
[2017-03-20] MEDS: MethylPREDNISolone 40 mg Vial IVP SCH ×2 (09:44→22:10)
[2017-03-20] MEDS: guaiFENesin 600 mg ER Tab PO SCH ×2 (09:44→18:20)
--- NOTE | 2017-03-20 15:08 | CP.PCM.CON ---
<Aram Benitez - Last Filed: 03/20/17 15:08> History of Present Illness - History of Present Illness History of Present Illness: PGY4 Initial GI Consult Note Nathen Lawson is a 66M w/ hx of COPD, HTN, CHF, CAD who presents to the ED with SOB. Pt has been in the hospital and being treated for acute COPD exacerbation. Pt has had an uneventful course. He currently denies any SOB. GI was consulted for progressive anemia. Pt has had repeated admissions for COPD exacerbation for the last 1 year and his hgb has been progressively dropping. Pt denied any hematemesis, melena, or BRBPR. He denies any NSAID use, but uses ASA. He denies any sig weight loss. He denies anysig abd pain. He does admit to a hx of constipation and states he usually has BM every 2-3 days. His current hgb is ~8 ROS: 12-point ROS conducted, other than whats mentioned above otherwise neg PMHx: Anxiety, arthritis, asthma, bronchitis, COPD, CHF, DM, Emphysema, HTN, hypercholesterolemia, pneumonia, CKD, REYNA Social hx: Sig hx of smoking, Denies nay Etoh use or illicit drug use Family hx: Denies any hx of Ca Endoscopy hx: none Past Patient History - Infectious Disease Hx of Infectious Diseases: None - Past Medical History & Family History Past Medical History?: Yes - Past Social History Smoking Status: Former Smoker - CARDIAC Hx Congestive Heart Failure: Yes Hx Hypercholesterolemia: Yes Hx Hypertension: Yes - PULMONARY Hx Chronic Obstructive Pulmonary Disease (COPD): Yes - NEUROLOGICAL Hx Neurological Disorder: No - HEENT Hx HEENT Problems: Yes Hx Cataracts: Yes (left cataract removed, r cataract) Other/Comment: wears eyeglasses for distance - RENAL Hx Chronic Kidney Disease: Yes - ENDOCRINE/METABOLIC Hx Diabetes Mellitus Type 2: Yes - HEMATOLOGICAL/ONCOLOGICAL Hx Blood Disorders: No - INTEGUMENTARY Hx Dermatological Problems: No - MUSCULOSKELETAL/RHEUMATOLOGICAL Hx Arthritis: Yes (BACK; KNEES) - GASTROINTESTINAL Hx Gastritis: No - PSYCHIATRIC Hx Anxiety: Yes Hx Substance Use: No - SURGICAL HISTORY Hx Surgeries: Yes Hx Cardiac Catheterization: Yes (11/2015) - ANESTHESIA Hx Anesthesia: Yes Hx Anesthesia Reactions: Yes (pt dont know. aware) Hx Malignant Hyperthermia: No Meds Allergies/Adverse Reactions: Allergies Allergy/AdvReac Type Severity Reaction Status Date / Time acetaminophen [From Tylenol] Allergy RASH Verified 03/02/17 22:26 FISH Allergy SWELLING Verified 03/02/17 22:26 shrimp Allergy SHORTNESS Verified 03/02/17 22:26 OF BREATH - Medications Medications: Current Medications Albuterol/Ipratropium (Duoneb 3 Mg/0.5 Mg (3 Ml) Ud) 3 ml INH RQ6 [facility] Last Admin: 03/20/17 13:07 Dose: 3 ml Alprazolam (Xanax) 0.5 mg PO BID PRN PRN Reason: Anxiety Stop: 03/26/17 08:44 Last Admin: 03/20/17 09:44 Dose: 0.5 mg Budesonide (Pulmicort Respules) 0.5 mg INH RBID [facility] Last Admin: 03/20/17 07:30 Dose: 0.5 mg Docusate Sodium (Colace) 100 mg PO BID [facility] Last Admin: 03/20/17 09:44 Dose: 100 mg Enoxaparin Sodium (Lovenox) 40 mg SC DAILY [facility] Last Admin: 03/20/17 09:43 Dose: 40 mg Ferric Sodium Gluconate Complex (Ferrlecit) 125 mg IVPB DAILY [facility] Stop: 03/25/17 10:01 Last Admin: 03/20/17 09:44 Dose: 125 mg Guaifenesin (Mucinex La) 600 mg PO BID [facility] Last Admin: 03/20/17 09:44 Dose: 600 mg Home Med (Patient's Own Inhalation Solution) 1 ml INH BID [facility] Insulin Aspart (Novolog) 0 unit SC ACHS [facility] PRN Reason: Protocol Last Admin: 03/20/17 14:56 Dose: 3 unit Insulin Glargine (Lantus) [address] [facility] Last Admin: 03/19/17 21:32 Dose: 16 u Metformin HCl (Glucophage) 1,000 mg PO BID [facility] Last Admin: 03/20/17 09:44 Dose: 1,000 mg Methylprednisolone (Solu-Medrol) 40 mg IVP Q12 [facility] Last Admin: 03/20/17 09:44 Dose: 40 mg Montelukast Sodium (Singulair) 10 mg PO HS [facility] Last Admin: 03/19/17 21:31 Dose: 10 mg Pantoprazole Sodium (Protonix Ec Tab) 40 mg PO DAILY [facility] Last Admin: 03/20/17 09:44 Dose: 40 mg Polyethylene Glycol (Miralax) 17 gm PO DAILY [facility] Last Admin: 03/20/17 09:43 Dose: 17 gm Roflumilast (Daliresp) 500 mcg PO DAILY [facility] Last Admin: 03/20/17 09:44 Dose: 500 mcg Fluticasone/Salmeterol (Advair Diskus 250/50) 1 puff INH RBID [facility] Last Admin: 03/20/17 07:30 Dose: 1 puff Vitamin B Complex/Vitamin C (Berocca) 1 tab PO DAILY [facility] Last Admin: 03/20/17 09:44 Dose: 1 tab Physical Exam - Constitutional Appears: Well, No Acute Distress - Head Exam Head Exam: ATRAUMATIC, NORMOCEPHALIC - Eye Exam Eye Exam: Normal appearance - ENT Exam ENT Exam: Mucous Membranes Moist, Normal Exam - Respiratory Exam Respiratory Exam: Wheezes, NORMAL BREATHING PATTERN. absent: Rales, Rhonchi - Cardiovascular Exam Cardiovascular Exam: REGULAR RHYTHM, +S1, +S2 - GI/Abdominal Exam GI & Abdominal Exam: Hypoactive Bowel Sounds. absent: Distended, Firm, Guarding , Hernia, Organomegaly, Rebound, Rigid, Tenderness - Extremities Exam Extremities exam: Negative for: pedal edema - Neurological Exam Neurological exam: Alert, Oriented x3 - Psychiatric Exam Psychiatric exam: Normal Affect, Normal Mood - Skin Skin Exam: Dry, Intact, Normal Color, Warm Results - Vital Signs Recent Vital Signs: Last Vital Signs Temp 97.6 F 03/20/17 08:00 Pulse 96 H 03/20/17 13:14 Resp 18 03/20/17 08:00 BP 119/71 03/20/17 08:00 Pulse Ox 99 03/20/17 08:00 - Labs Result Diagrams: 03/20/17 08:42 03/19/17 00:40 Labs: Laboratory Results - last 24 hr 03/19/17 03/19/17 03/19/17 12:00 16:44 21:09 WBC RBC Hgb Hct MCV MCH MCHC RDW Plt Count MPV Neut % (Auto) Lymph % (Auto) [place] % (Auto) Eos % (Auto) Baso % (Auto) Neut # Lymph # [place] # Eos # Baso # Neutrophils % (Manual) Lymphocytes % (Manual) Monocytes % (Manual) Platelet Estimate Polychromasia Hypochromasia (manual) Poikilocytosis (manual Anisocytosis (manual) Microcytosis (manual) Macrocytosis (manual) Target Cells Tear Drop Cells Ovalocytes [place] Cells POC Glucose (mg/dL) 328 H 212 H Blood Type O POSITIVE Antibody Screen Negative 03/20/17 03/20/17 03/20/17 06:13 08:42 11:44 WBC 15.1 H RBC 4.47 Hgb 8.3 L Hct 27.5 L MCV 61.5 L D MCH 18.5 L MCHC 30.1 L RDW 21.2 H Plt Count 260 MPV 9.0 Neut % (Auto) 85.9 H Lymph % (Auto) 8.9 L [place] % (Auto) 5.0 Eos % (Auto) 0.1 Baso % (Auto) 0.1 Neut # 13.0 H Lymph # 1.3 [place] # 0.7 Eos # 0.0 Baso # 0.0 Neutrophils % (Manual) 87 H Lymphocytes % (Manual) 10 L Monocytes % (Manual) 3 Platelet Estimate Normal Polychromasia Slight Hypochromasia (manual) Moderate Poikilocytosis (manual Slight Anisocytosis (manual) Slight Microcytosis (manual) Slight Macrocytosis (manual) Slight Target Cells Slight Tear Drop Cells Slight Ovalocytes Slight [place] Cells Slight POC Glucose (mg/dL) 325 H 293 H Blood Type Antibody Screen Assessment & Plan - Assessment and Plan (Free Text) Assessment: This pt is a 66M w/ hx of COPD, CAD, HTN, CHF who presents with SOB. Pt is being tx for COPD exacerbation. His has been progressively having worsening anemia. r/o GI bleed 1. microcytic anemia 2. COPD exacerbation 3. hx of constipation 4. Hx of CHF and CAD Plan: - plan for EGD/Colonoscopy on -NPO after midnight prior -Clear liquid for now -Recommend both pulm and cardiac clearance -Hgb goal > 8 due to hx of CAD -No gross GI bleed -recommend complete iron studies D/W Dr. Black <Adrián Black - Last Filed: 03/20/17 15:24> Meds - Medications Medications: Current Medications Albuterol/Ipratropium (Duoneb 3 Mg/0.5 Mg (3 Ml) Ud) 3 ml INH RQ6 [facility] Last Admin: 03/20/17 13:07 Dose: 3 ml Alprazolam (Xanax) 0.5 mg PO BID PRN PRN Reason: Anxiety Stop: 03/26/17 08:44 Last Admin: 03/20/17 09:44 Dose: 0.5 mg Budesonide (Pulmicort Respules) 0.5 mg INH RBID [facility] Last Admin: 03/20/17 07:30 Dose: 0.5 mg Docusate Sodium (Colace) 100 mg PO BID [facility] Last Admin: 03/20/17 09:44 Dose: 100 mg Enoxaparin Sodium (Lovenox) 40 mg SC DAILY [facility] Last Admin: 03/20/17 09:43 Dose: 40 mg Ferric Sodium Gluconate Complex (Ferrlecit) 125 mg IVPB DAILY [facility] Stop: 03/25/17 10:01 Last Admin: 03/20/17 09:44 Dose: 125 mg Guaifenesin (Mucinex La) 600 mg PO BID [facility] Last Admin: 03/20/17 09:44 Dose: 600 mg Home Med (Patient's Own Inhalation Solution) 1 ml INH BID [facility] Insulin Aspart (Novolog) 0 unit SC ACHS [facility] PRN Reason: Protocol Last Admin: 03/20/17 14:56 Dose: 3 unit Insulin Glargine (Lantus) [address] [facility] Last Admin: 03/19/17 21:32 Dose: 16 u Metformin HCl (Glucophage) 1,000 mg PO BID [facility] Last Admin: 03/20/17 09:44 Dose: 1,000 mg Methylprednisolone (Solu-Medrol) 40 mg IVP Q12 [facility] Last Admin: 03/20/17 09:44 Dose: 40 mg Montelukast Sodium (Singulair) 10 mg PO HS [facility] Last Admin: 03/19/17 21:31 Dose: 10 mg Pantoprazole Sodium (Protonix Ec Tab) 40 mg PO DAILY [facility] Last Admin: 03/20/17 09:44 Dose: 40 mg Polyethylene Glycol (Miralax) 17 gm PO DAILY [facility] Last Admin: 03/20/17 09:43 Dose: 17 gm Roflumilast (Daliresp) 500 mcg PO DAILY [facility] Last Admin: 03/20/17 09:44 Dose: 500 mcg Fluticasone/Salmeterol (Advair Diskus 250/50) 1 puff INH RBID [facility] Last Admin: 03/20/17 07:30 Dose: 1 puff Vitamin B Complex/Vitamin C (Berocca) 1 tab PO DAILY [facility] Last Admin: 03/20/17 09:44 Dose: 1 tab Results - Vital Signs Recent Vital Signs: Last Vital Signs Temp 97.6 F 03/20/17 08:00 Pulse 96 H 03/20/17 13:14 Resp 18 03/20/17 08:00 BP 119/71 03/20/17 08:00 Pulse Ox 99 03/20/17 08:00 - Labs Result Diagrams: 03/20/17 08:42 03/19/17 00:40 Labs: Laboratory Results - last 24 hr 03/19/17 03/19/17 03/19/17 12:00 16:44 21:09 WBC RBC Hgb Hct MCV MCH MCHC RDW Plt Count MPV Neut % (Auto) Lymph % (Auto) [place] % (Auto) Eos % (Auto) Baso % (Auto) Neut # Lymph # [place] # Eos # Baso # Neutrophils % (Manual) Lymphocytes % (Manual) Monocytes % (Manual) Platelet Estimate Polychromasia Hypochromasia (manual) Poikilocytosis (manual Anisocytosis (manual) Microcytosis (manual) Macrocytosis (manual) Target Cells Tear Drop Cells Ovalocytes [place] Cells POC Glucose (mg/dL) 328 H 212 H Blood Type O POSITIVE Antibody Screen Negative 03/20/17 03/20/17 03/20/17 06:13 08:42 11:44 WBC 15.1 H RBC 4.47 Hgb 8.3 L Hct 27.5 L MCV 61.5 L D MCH 18.5 L MCHC 30.1 L RDW 21.2 H Plt Count 260 MPV 9.0 Neut % (Auto) 85.9 H Lymph % (Auto) 8.9 L [place] % (Auto) 5.0 Eos % (Auto) 0.1 Baso % (Auto) 0.1 Neut # 13.0 H Lymph # 1.3 [place] # 0.7 Eos # 0.0 Baso # 0.0 Neutrophils % (Manual) 87 H Lymphocytes % (Manual) 10 L Monocytes % (Manual) 3 Platelet Estimate Normal Polychromasia Slight Hypochromasia (manual) Moderate Poikilocytosis (manual Slight Anisocytosis (manual) Slight Microcytosis (manual) Slight Macrocytosis (manual) Slight Target Cells Slight Tear Drop Cells Slight Ovalocytes Slight [place] Cells Slight POC Glucose (mg/dL) 325 H 293 H Blood Type Antibody Screen Attending/Attestation - Attestation I have personally seen and examined this patient.: Yes I have fully participated in the care of the patient.: Yes I have reviewed all pertinent clinical information: Yes Notes (Text): 03/20/17 15:15 I have seen and examined patient with GI fellow. Agree with above documentation with the following additions. In brief, this is a 66 year old male with history of COPD, CHF, HTN who presented to hospital with complaint of progressive dyspnea on exertion, currently being treated for COPD exacerbation. GI called for evaluation of anemia. He admits to intermittent abdominal discomfort in epigastric region but otherwise denies nausea, vomiting, fever/ chills, weight loss, rectal bleeding, or change in bowel habits. No prior endoscopic evaluation. COPD CHF DM HTN Anemia, profound microcytic iron deficiency - Clear liquid diet as tolerated - H/H stable, continue to monitor, no overt bleeding noted. Check stool occult blood. - Continue with COPD therapy as per medical and pulmonary teams - Patient would certainly benefit from endoscopic evaluation of iron deficiency anemia in order to rule out underlying malignancy, however given acute pulmonary issues would ask for medical clearance prior to proceeding with procedures. Patient currently appears comfortable, saturating 99% on NC. Will tentatively plan for endoscopy on pending additional medical evaluation , will continue to monitor patient clinical course.
--- NOTE | 2017-03-20 15:20 | CP.PCM.PN ---
Subjective - Date & Time of Evaluation Date of Evaluation: 03/20/17 Time of Evaluation: 10:30 - Subjective Subjective: Patient seen and examined. Status post transfusion of packed RBCs Denies any active bleed Less short of breath Less tachycardic Objective - Vital Signs/Intake and Output Vital Signs (last 24 hours): Temp Pulse Resp BP Pulse Ox 97.6 F 96 H 18 119/71 99 03/20/17 08:00 03/20/17 13:14 03/20/17 08:00 03/20/17 08:00 03/20/17 08:00 Intake and Output: 03/20/17 03/20/17 06:59 18:59 Intake Total 375 Balance 375 - Medications Medications: Current Medications Albuterol/Ipratropium (Duoneb 3 Mg/0.5 Mg (3 Ml) Ud) 3 ml INH RQ6 [facility] Last Admin: 03/20/17 13:07 Dose: 3 ml Alprazolam (Xanax) 0.5 mg PO BID PRN PRN Reason: Anxiety Stop: 03/26/17 08:44 Last Admin: 03/20/17 09:44 Dose: 0.5 mg Budesonide (Pulmicort Respules) 0.5 mg INH RBID [facility] Last Admin: 03/20/17 07:30 Dose: 0.5 mg Docusate Sodium (Colace) 100 mg PO BID [facility] Last Admin: 03/20/17 09:44 Dose: 100 mg Enoxaparin Sodium (Lovenox) 40 mg SC DAILY [facility] Last Admin: 03/20/17 09:43 Dose: 40 mg Ferric Sodium Gluconate Complex (Ferrlecit) 125 mg IVPB DAILY [facility] Stop: 03/25/17 10:01 Last Admin: 03/20/17 09:44 Dose: 125 mg Guaifenesin (Mucinex La) 600 mg PO BID [facility] Last Admin: 03/20/17 09:44 Dose: 600 mg Home Med (Patient's Own Inhalation Solution) 1 ml INH BID [facility] Insulin Aspart (Novolog) 0 unit SC ACHS [facility] PRN Reason: Protocol Last Admin: 03/20/17 14:56 Dose: 3 unit Insulin Glargine (Lantus) 16 unit SC HS [facility] Last Admin: 03/19/17 21:32 Dose: 16 u Metformin HCl (Glucophage) 1,000 mg PO BID [facility] Last Admin: 03/20/17 09:44 Dose: 1,000 mg Methylprednisolone (Solu-Medrol) 40 mg IVP Q12 [facility] Last Admin: 03/20/17 09:44 Dose: 40 mg Montelukast Sodium (Singulair) 10 mg PO HS [facility] Last Admin: 03/19/17 21:31 Dose: 10 mg Pantoprazole Sodium (Protonix Ec Tab) 40 mg PO DAILY [facility] Last Admin: 03/20/17 09:44 Dose: 40 mg Polyethylene Glycol (Miralax) 17 gm PO DAILY [facility] Last Admin: 03/20/17 09:43 Dose: 17 gm Roflumilast (Daliresp) 500 mcg PO DAILY [facility] Last Admin: 03/20/17 09:44 Dose: 500 mcg Fluticasone/Salmeterol (Advair Diskus 250/50) 1 puff INH RBID [facility] Last Admin: 03/20/17 07:30 Dose: 1 puff Vitamin B Complex/Vitamin C (Berocca) 1 tab PO DAILY [facility] Last Admin: 03/20/17 09:44 Dose: 1 tab - Labs Labs: 03/20/17 08:42 - Head Exam Head Exam: ATRAUMATIC, NORMOCEPHALIC - Eye Exam Eye Exam: Normal appearance - ENT Exam ENT Exam: Mucous Membranes Moist - Neck Exam Neck Exam: Normal Inspection - Respiratory Exam Respiratory Exam: Decreased Breath Sounds - Cardiovascular Exam Cardiovascular Exam: REGULAR RHYTHM - GI/Abdominal Exam GI & Abdominal Exam: Soft, Normal Bowel Sounds - Extremities Exam Extremities Exam: Full ROM, Normal Inspection - Neurological Exam Neurological Exam: Alert, Oriented x3 Assessment and Plan (1) COPD (chronic obstructive pulmonary disease) with emphysema Assessment & Plan: Continue IV steroids, nebulizer treatment GI workup for anemia Continue anxiolytic BiPAP as needed Status: Acute (2) Acute respiratory distress Status: Acute
[2017-03-20] MEDS: (Lantus) Insulin Glargine, Recombinant SC SCH ×2 (22:10→22:33)
--- NOTE | 2017-03-20 23:35 | CP.PCM.PN ---
Subjective - Date & Time of Evaluation Date of Evaluation: 03/20/17 Time of Evaluation: 20:26 - Subjective Subjective: COUGH CONGESTION LESS SOB SINCE BLOOD TRANSFUSION, NO FEVER, NO CHEST PAIN Objective - Vital Signs/Intake and Output Vital Signs (last 24 hours): Temp Pulse Resp BP Pulse Ox 97.7 F 105 H 20 113/64 96 03/20/17 16:27 03/20/17 16:27 03/20/17 16:27 03/20/17 16:27 03/20/17 16:27 Intake and Output: 03/20/17 03/21/17 18:59 06:59 Intake Total 500 Balance 500 - Medications Medications: Current Medications Albuterol/Ipratropium (Duoneb 3 Mg/0.5 Mg (3 Ml) Ud) 3 ml INH RQ6 [facility] Last Admin: 03/20/17 20:21 Dose: 3 ml Alprazolam (Xanax) 0.5 mg PO BID PRN PRN Reason: Anxiety Stop: 03/26/17 08:44 Last Admin: 03/20/17 22:12 Dose: 0.5 mg Budesonide (Pulmicort Respules) 0.5 mg INH RBID [facility] Last Admin: 03/20/17 20:21 Dose: 0.5 mg Docusate Sodium (Colace) 100 mg PO BID [facility] Last Admin: 03/20/17 18:20 Dose: 100 mg Enoxaparin Sodium (Lovenox) 40 mg SC DAILY [facility] Last Admin: 03/20/17 09:43 Dose: 40 mg Ferric Sodium Gluconate Complex (Ferrlecit) 125 mg IVPB DAILY [facility] Stop: 03/25/17 10:01 Last Admin: 03/20/17 09:44 Dose: 125 mg Guaifenesin (Mucinex La) 600 mg PO BID [facility] Last Admin: 03/20/17 18:20 Dose: 600 mg Home Med (Patient's Own Inhalation Solution) 1 ml INH BID [facility] Insulin Aspart (Novolog) 0 unit SC ACHS [facility] PRN Reason: Protocol Last Admin: 03/20/17 22:11 Dose: Not Given Insulin Glargine (Lantus) 16 unit SC HS [facility] Last Admin: 03/20/17 22:33 Dose: Not Given Metformin HCl (Glucophage) 1,000 mg PO BID [facility] Last Admin: 03/20/17 18:20 Dose: 1,000 mg Methylprednisolone (Solu-Medrol) 40 mg IVP Q12 [facility] Last Admin: 03/20/17 22:10 Dose: 40 mg Montelukast Sodium (Singulair) 10 mg PO HS [facility] Last Admin: 03/20/17 22:10 Dose: 10 mg Pantoprazole Sodium (Protonix Ec Tab) 40 mg PO DAILY [facility] Last Admin: 03/20/17 09:44 Dose: 40 mg Polyethylene Glycol (Miralax) 17 gm PO DAILY [facility] Last Admin: 03/20/17 09:43 Dose: 17 gm Roflumilast (Daliresp) 500 mcg PO DAILY [facility] Last Admin: 03/20/17 09:44 Dose: 500 mcg Fluticasone/Salmeterol (Advair Diskus 250/50) 1 puff INH RBID [facility] Last Admin: 03/20/17 20:21 Dose: 1 puff Vitamin B Complex/Vitamin C (Berocca) 1 tab PO DAILY [facility] Last Admin: 03/20/17 09:44 Dose: 1 tab - Constitutional Appears: Non-toxic, No Acute Distress, Chronically Ill - Head Exam Head Exam: ATRAUMATIC, NORMAL INSPECTION, NORMOCEPHALIC - Eye Exam Eye Exam: EOMI, Normal appearance Pupil Exam: NORMAL ACCOMODATION - ENT Exam ENT Exam: Mucous Membranes Moist, Normal Exam - Neck Exam Neck Exam: Normal Inspection - Respiratory Exam Respiratory Exam: Rhonchi, Wheezes - Cardiovascular Exam Cardiovascular Exam: Tachycardia, REGULAR RHYTHM, +S1, +S2 - GI/Abdominal Exam GI & Abdominal Exam: Soft, Normal Bowel Sounds - Rectal Exam Rectal Exam: NORMAL INSPECTION - Extremities Exam Extremities Exam: Normal Capillary Refill - Back Exam Back Exam: NORMAL INSPECTION - Neurological Exam Neurological Exam: Alert, Awake, CN II-XII Intact, Normal Gait, Oriented x3 Neuro motor strength exam: Left Upper Extremity: 5, Right Upper Extremity: 5, Left Lower Extremity: 5, Right Lower Extremity: 5 - Psychiatric Exam Psychiatric exam: Anxious - Skin Skin Exam: Dry Assessment and Plan (1) Anemia Assessment & Plan: S/P BLOOD TRANSFUSION Status: Acute (2) COPD (chronic obstructive pulmonary disease) with emphysema Status: Acute (3) Allergic rhinitis Status: Chronic (4) Diabetes Status: Chronic
[2017-03-21] MEDS: Albuterol-Ipratrop 3 mg / 0.5 (3 ml) UD INH SCH ×4 (01:24→19:48)
[2017-03-21 07:37] LABS: BASO % 0.3 % (0.0-2.0); EOS % 0.1 % (0.0-4.0); LYMPH # 1.3 K/uL (1.0-4.3); MEAN CELL VOLUME 61.9 fL (80.0-94.0); MEAN CORPUSCULAR HEMOGLOBIN 18.5 pg (27.0-31.0); MEAN CORPUSCULAR HGB CONC 29.8 g/dL (33.0-37.0); MEAN PLATELET VOLUME 8.8 fL (7.2-11.7); MONO # 0.7 K/uL (0.0-0.8); MONO % 5.7 % (0.0-10.0); RED CELL DISTRIBUTION WIDTH 21.6 % (11.5-14.5); WHITE BLOOD COUNT 13.1 K/uL (4.8-10.8)
[2017-03-21] MEDS: Fluticasone-Salmeterol 250-50mcg Diskus INH SCH ×2 (07:40→19:48)
[2017-03-21] MEDS: Budesonide 0.5 mg/2 ml Inhal Susp UD INH SCH ×2 (07:40→19:48)
--- NOTE | 2017-03-21 09:10 | CP.PCM.PN ---
<Aram Benitez - Last Filed: 03/21/17 09:13> Subjective - Date & Time of Evaluation Date of Evaluation: 03/21/17 Time of Evaluation: 07:00 - Subjective Subjective: PGY4 GI follow-up note Pt seen and examined bedside No complaints Denies any abd pain Denies any BRBPR, melena Tolerating liquids Denies any SOB 12-point ROS conducted neg other than what was stated above Objective - Vital Signs/Intake and Output Vital Signs (last 24 hours): Temp Pulse Resp BP Pulse Ox 98.0 F 97 H 20 119/76 98 03/20/17 23:13 03/21/17 05:00 03/20/17 23:13 03/20/17 23:13 03/20/17 23:13 Intake and Output: 03/21/17 03/21/17 06:59 18:59 Intake Total 500 Balance 500 - Medications Medications: Current Medications Albuterol/Ipratropium (Duoneb 3 Mg/0.5 Mg (3 Ml) Ud) 3 ml INH RQ6 [facility] Last Admin: 03/21/17 07:40 Dose: 3 ml Alprazolam (Xanax) 0.5 mg PO BID PRN PRN Reason: Anxiety Stop: 03/26/17 08:44 Last Admin: 03/20/17 22:12 Dose: 0.5 mg Budesonide (Pulmicort Respules) 0.5 mg INH RBID [facility] Last Admin: 03/21/17 07:40 Dose: 0.5 mg Docusate Sodium (Colace) 100 mg PO BID [facility] Last Admin: 03/20/17 18:20 Dose: 100 mg Enoxaparin Sodium (Lovenox) 40 mg SC DAILY [facility] Last Admin: 03/20/17 09:43 Dose: 40 mg Ferric Sodium Gluconate Complex (Ferrlecit) 125 mg IVPB DAILY [facility] Stop: 03/25/17 10:01 Last Admin: 03/20/17 09:44 Dose: 125 mg Guaifenesin (Mucinex La) 600 mg PO BID [facility] Last Admin: 03/20/17 18:20 Dose: 600 mg Home Med (Patient's Own Inhalation Solution) 1 ml INH BID [facility] Insulin Aspart (Novolog) 0 unit SC ACHS [facility] PRN Reason: Protocol Last Admin: 03/20/17 22:11 Dose: Not Given Insulin Glargine (Lantus) 16 unit SC [facility] Last Admin: 03/20/17 22:33 Dose: Not Given Metformin HCl (Glucophage) 1,000 mg PO BID [facility] Last Admin: 03/20/17 18:20 Dose: 1,000 mg Methylprednisolone (Solu-Medrol) 40 mg IVP DAILY [facility] Montelukast Sodium (Singulair) 10 mg PO HS [facility] Last Admin: 03/20/17 22:10 Dose: 10 mg Pantoprazole Sodium (Protonix Ec Tab) 40 mg PO DAILY [facility] Last Admin: 03/20/17 09:44 Dose: 40 mg Polyethylene Glycol (Miralax) 17 gm PO DAILY [facility] Last Admin: 03/20/17 09:43 Dose: 17 gm Roflumilast (Daliresp) 500 mcg PO DAILY [facility] Last Admin: 03/20/17 09:44 Dose: 500 mcg Fluticasone/Salmeterol (Advair Diskus 250/50) 1 puff INH RBID [facility] Last Admin: 03/21/17 07:40 Dose: 1 puff Vitamin B Complex/Vitamin C (Berocca) 1 tab PO DAILY [facility] Last Admin: 03/20/17 09:44 Dose: 1 tab - Labs Labs: 03/21/17 07:21 - Constitutional Appears: Well, No Acute Distress - Head Exam Head Exam: ATRAUMATIC, NORMOCEPHALIC - Eye Exam Eye Exam: Normal appearance - ENT Exam ENT Exam: Mucous Membranes Moist, Normal Exam - Respiratory Exam Respiratory Exam: Wheezes, NORMAL BREATHING PATTERN. absent: Rales, Rhonchi Additional comments: better air entry in all gonzalez compared to yesterday, but still diminished - Cardiovascular Exam Cardiovascular Exam: REGULAR RHYTHM, +S1, +S2 - GI/Abdominal Exam GI & Abdominal Exam: Soft, Normal Bowel Sounds. absent: Guarding, Rigid, Tenderness, Mass, Organomegaly - Extremities Exam Extremities Exam: Normal Inspection. absent: Joint Swelling, Pedal Edema - Neurological Exam Neurological Exam: Alert, Awake, Oriented x3 - Psychiatric Exam Psychiatric exam: Normal Affect, Normal Mood - Skin Skin Exam: Dry, Intact, Normal Color, Warm Assessment and Plan - Assessment and Plan (Free Text) Assessment: This pt is a 66M w/ hx of COPD, CAD, HTN, CHF who presents with SOB. Pt is being tx for COPD exacerbation. His has been progressively having worsening anemia. r/o GI bleed 1. microcytic anemia 2. COPD exacerbation 3. hx of constipation 4. Hx of CHF and CAD Plan: - plan for EGD/Colonoscopy on -NPO after midnight prior -Clear liquid for now -will need pulm and cardiac clearance -Hgb goal > 8 due to hx of CAD -No gross GI bleed -will initiate bowel prep after clearance D/W Dr. Cox <[place] Cox - Last Filed: 03/21/17 12:59> Objective - Vital Signs/Intake and Output Vital Signs (last 24 hours): Temp Pulse Resp BP Pulse Ox 98.0 F 97 H 20 119/76 98 03/20/17 23:13 03/21/17 05:00 03/20/17 23:13 03/20/17 23:13 03/20/17 23:13 Intake and Output: 03/21/17 03/21/17 06:59 18:59 Intake Total 500 Balance 500 - Medications Medications: Current Medications Albuterol/Ipratropium (Duoneb 3 Mg/0.5 Mg (3 Ml) Ud) 3 ml INH RQ6 [facility] Last Admin: 03/21/17 07:40 Dose: 3 ml Alprazolam (Xanax) 0.5 mg PO BID PRN PRN Reason: Anxiety Stop: 03/26/17 08:44 Last Admin: 03/20/17 22:12 Dose: 0.5 mg Budesonide (Pulmicort Respules) 0.5 mg INH RBID [facility] Last Admin: 03/21/17 07:40 Dose: 0.5 mg Docusate Sodium (Colace) 100 mg PO BID [facility] Last Admin: 03/21/17 11:14 Dose: 100 mg Enoxaparin Sodium (Lovenox) 40 mg SC DAILY [facility] Last Admin: 03/21/17 12:06 Dose: 40 mg Ferric Sodium Gluconate Complex (Ferrlecit) 125 mg IVPB DAILY [facility] Stop: 03/25/17 10:01 Last Admin: 03/21/17 11:14 Dose: 125 mg Guaifenesin (Mucinex La) 600 mg PO BID [facility] Last Admin: 03/21/17 11:13 Dose: 600 mg Home Med (Patient's Own Inhalation Solution) 1 ml INH BID [facility] Last Admin: 03/21/17 12:06 Dose: Not Given Insulin Aspart (Novolog) 0 unit SC ACHS [facility] PRN Reason: Protocol Last Admin: 03/21/17 09:57 Dose: 5 unit Insulin Glargine (Lantus) 16 unit SC HS [facility] Last Admin: 03/20/17 22:33 Dose: Not Given Metformin HCl (Glucophage) 1,000 mg PO BID [facility] Last Admin: 03/21/17 11:13 Dose: 1,000 mg Methylprednisolone (Solu-Medrol) 40 mg IVP DAILY [facility] Last Admin: 03/21/17 11:14 Dose: 40 mg Montelukast Sodium (Singulair) 10 mg PO HS [facility] Last Admin: 03/20/17 22:10 Dose: 10 mg Pantoprazole Sodium (Protonix Ec Tab) 40 mg PO DAILY [facility] Last Admin: 03/21/17 11:18 Dose: 40 mg Polyethylene Glycol (Miralax) 17 gm PO DAILY [facility] Last Admin: 03/21/17 11:14 Dose: 17 gm Roflumilast (Daliresp) 500 mcg PO DAILY [facility] Last Admin: 03/21/17 11:13 Dose: 500 mcg Fluticasone/Salmeterol (Advair Diskus 250/50) 1 puff INH RBID [facility] Last Admin: 03/21/17 07:40 Dose: 1 puff Vitamin B Complex/Vitamin C (Berocca) 1 tab PO DAILY [facility] Last Admin: 03/21/17 11:14 Dose: 1 tab - Labs Labs: 03/21/17 07:21 Attending/Attestation - Attestation I have personally seen and examined this patient.: Yes I have fully participated in the care of the patient.: Yes I have reviewed all pertinent clinical information, including history, physical exam and plan: Yes Notes (Text): 03/21/17 12:57 66 year old male a/w copd exacerbation also with anemia. 1. Microcytic anemia 2. Constipation Plan: -recommend egd/colonoscopy for further evaluation pending pulm clearance -prep as above for likely procedure tomorrow
[2017-03-21] MEDS: (Novolog) Insulin Aspart, Recombinant 100 u/ml 10 ml vial SC SCH ×4 (09:57→21:46)
[2017-03-21] MEDS: guaiFENesin 600 mg ER Tab PO SCH ×2 (11:13→17:44)
[2017-03-21] MEDS: MethylPREDNISolone 40 mg Vial IVP SCH (11:14)
[2017-03-21] MEDS: Enoxaparin 40 mg Syringe SC SCH ×2 (11:14→12:06)
[2017-03-21] MEDS: Ferric Sodium Gluconat Complex 62.5 mg/5 ml Vial IVPB SCH (11:14)
[2017-03-21] MEDS: POLYETHYLENE GLYCOL 3350 17 GM/Dose PACKET PO SCH (11:14)
[2017-03-21] MEDS: Vitamin B Complex/Vitamin C Tab PO SCH (11:14)
[2017-03-21] MEDS: Pantoprazole 40 mg EC Tab PO SCH (11:18)
[2017-03-21] MEDS: BROVANA 15 MCG/2 ML INH SCH (12:06)
--- NOTE | 2017-03-21 13:35 | CP.PCM.PN ---
Subjective - Date & Time of Evaluation Date of Evaluation: 03/21/17 Time of Evaluation: 09:00 - Subjective Subjective: Patient seen and examined. Lying comfortably in no acute distress Dyspnea on minimal exertion Denies any rectal bleeding On clear liquid diet Objective - Vital Signs/Intake and Output Vital Signs (last 24 hours): Temp Pulse Resp BP Pulse Ox 98.0 F 97 H 20 119/76 98 03/20/17 23:13 03/21/17 05:00 03/20/17 23:13 03/20/17 23:13 03/20/17 23:13 Intake and Output: 03/21/17 03/21/17 06:59 18:59 Intake Total 500 Balance 500 - Medications Medications: Current Medications Albuterol/Ipratropium (Duoneb 3 Mg/0.5 Mg (3 Ml) Ud) 3 ml INH RQ6 [facility] Last Admin: 03/21/17 13:15 Dose: 3 ml Alprazolam (Xanax) 0.5 mg PO BID PRN PRN Reason: Anxiety Stop: 03/26/17 08:44 Last Admin: 03/20/17 22:12 Dose: 0.5 mg Budesonide (Pulmicort Respules) 0.5 mg INH RBID [facility] Last Admin: 03/21/17 07:40 Dose: 0.5 mg Docusate Sodium (Colace) 100 mg PO BID [facility] Last Admin: 03/21/17 11:14 Dose: 100 mg Enoxaparin Sodium (Lovenox) 40 mg SC DAILY [facility] Last Admin: 03/21/17 12:06 Dose: 40 mg Ferric Sodium Gluconate Complex (Ferrlecit) 125 mg IVPB DAILY [facility] Stop: 03/25/17 10:01 Last Admin: 03/21/17 11:14 Dose: 125 mg Guaifenesin (Mucinex La) 600 mg PO BID [facility] Last Admin: 03/21/17 11:13 Dose: 600 mg Home Med (Patient's Own Inhalation Solution) 1 ml INH BID [facility] Last Admin: 03/21/17 12:06 Dose: Not Given Insulin Aspart (Novolog) 0 unit SC ACHS [facility] PRN Reason: Protocol Last Admin: 03/21/17 13:27 Dose: 3 unit Insulin Glargine (Lantus) 16 unit SC HS [facility] Last Admin: 03/20/17 22:33 Dose: Not Given Metformin HCl (Glucophage) 1,000 mg PO BID [facility] Last Admin: 03/21/17 11:13 Dose: 1,000 mg Methylprednisolone (Solu-Medrol) 40 mg IVP DAILY [facility] Last Admin: 03/21/17 11:14 Dose: 40 mg Montelukast Sodium (Singulair) 10 mg PO HS [facility] Last Admin: 03/20/17 22:10 Dose: 10 mg Pantoprazole Sodium (Protonix Ec Tab) 40 mg PO DAILY [facility] Last Admin: 03/21/17 11:18 Dose: 40 mg Polyethylene Glycol (Miralax) 17 gm PO DAILY [facility] Last Admin: 03/21/17 11:14 Dose: 17 gm Roflumilast (Daliresp) 500 mcg PO DAILY [facility] Last Admin: 03/21/17 11:13 Dose: 500 mcg Fluticasone/Salmeterol (Advair Diskus 250/50) 1 puff INH RBID [facility] Last Admin: 03/21/17 07:40 Dose: 1 puff Vitamin B Complex/Vitamin C (Berocca) 1 tab PO DAILY [facility] Last Admin: 03/21/17 11:14 Dose: 1 tab - Labs Labs: 03/21/17 07:21 - Head Exam Head Exam: ATRAUMATIC, NORMOCEPHALIC - Eye Exam Eye Exam: Normal appearance - ENT Exam ENT Exam: Mucous Membranes Moist - Neck Exam Neck Exam: Normal Inspection - Respiratory Exam Respiratory Exam: Decreased Breath Sounds Assessment and Plan (1) COPD (chronic obstructive pulmonary disease) with emphysema Assessment & Plan: Continue nebulizer treatment and start tapering steroids EGD tomorrow Continue present treatment Status: Acute (2) Acute respiratory distress Status: Acute
[2017-03-21] MEDS ORDERED: Peg-Electrolyte Oral Soln 4L (Golytely) PO ONE (15:30)
[2017-03-21] MEDS ORDERED: Bisacodyl 5mg EC Tab PO ONE (18:00)
[2017-03-21] MEDS: (Lantus) Insulin Glargine, Recombinant SC SCH (22:55)
[2017-03-22] MEDS: Albuterol-Ipratrop 3 mg / 0.5 (3 ml) UD INH SCH ×4 (00:36→19:45)
--- NOTE | 2017-03-22 01:23 | CON ---
DATE: REASON FOR CONSULTATION: Clearance for upper and lower endoscopy. HISTORY OF PRESENT ILLNESS: The patient is 66 years old male who has a history of advanced chronic obstructive lung disease on nasal O2, history of diabetes mellitus, history of anxiety disorder who was initially admitted because of shortness of breath and exacerbation of chronic obstructive lung disease. The patient was noted to be anemic and she had hemoglobin and hematocrit of 8.9 and 27.1. The patient required 1 unit of packed RBC transfusion and is being evaluated for upper and lower endoscopy. The patient denies any chest pain, cardiac catheterization performed in November of last year revealed unremarkable coronary circulation. SOCIAL HISTORY: The patient is a former smoker. MEDICATIONS: Advair one puff twice a day, Colace 100 mg twice a day, albuterol inhaler q.6h. p.r.n., Ferrlecit infusion, Glucophage 1 g twice a day, Lovenox 40 mg subcutaneous once a day, Mucinex 600 mg twice a day, Protonix 40 mg twice a day, Singulair 10 mg bedtime, Solu-Medrol 400 mg intravenously daily, and Xanax 0.5 mg twice a day. PHYSICAL EXAMINATION: GENERAL: The patient is an elderly male who does not appear to be in acute distress. VITAL SIGNS: Blood pressure 119/76, heart rate of 97, temperature 98, respiration 20. HEENT: Pale conjunctiva. CHEST: Bilateral rhonchi. HEART: S1 and S2 regular. ABDOMEN: Soft. EXTREMITIES: He has trace leg edema. LABORATORY DATA: SMA-7; sodium 136, potassium 3.6, chloride 94, CO2 28, glucose 210, BUN 6, creatinine 0.8. Two sets of troponins are negative. Hemoglobin and hematocrit today 8.3 and 28, white count 13.1, platelet count 164,000. Chest x-ray was consistent with COPD. EKG revealed sinus tachycardia, rate 136. I did review one recent echo from 03/05/2017, which revealed normal ejection fraction and mild pericardial effusion, right suspect cardiac failure. ASSESSMENT: 1. Chronic obstructive lung disease. 2. Consider mild right-sided heart failure. 3. Anemia. CONDITIONS: Continue current medications including bronchodilators, Solu-Medrol, subcutaneous Lovenox. The patient can undergo upper and lower endoscopy from the cardiac point of view. Pulmonary clearance is needed in the meantime. Mukesh Correia MD [facility] # [id number]
--- NOTE | 2017-03-22 03:17 | CP.PCM.PN ---
Subjective - Date & Time of Evaluation Date of Evaluation: 03/21/17 Time of Evaluation: 20:31 - Subjective Subjective: COUGH CONGESTION, NO CHEST PAIN, FOR EGD AND COLONOSCOPY Objective - Vital Signs/Intake and Output Vital Signs (last 24 hours): Temp Pulse Resp BP Pulse Ox 97.7 F 96 H 20 117/76 100 03/21/17 23:13 03/21/17 23:35 03/21/17 23:13 03/21/17 23:13 03/21/17 23:13 Intake and Output: 03/21/17 03/22/17 18:59 06:59 Intake Total 580 480 Balance 580 480 - Medications Medications: Current Medications Albuterol/Ipratropium (Duoneb 3 Mg/0.5 Mg (3 Ml) Ud) 3 ml INH RQ6 [facility] Last Admin: 03/22/17 00:36 Dose: 3 ml Alprazolam (Xanax) 0.5 mg PO BID PRN PRN Reason: Anxiety Stop: 03/26/17 08:44 Last Admin: 03/21/17 22:56 Dose: 0.5 mg Budesonide (Pulmicort Respules) 0.5 mg INH RBID [facility] Last Admin: 03/21/17 19:48 Dose: 0.5 mg Docusate Sodium (Colace) 100 mg PO BID [facility] Last Admin: 03/21/17 17:37 Dose: 100 mg Enoxaparin Sodium (Lovenox) 40 mg SC DAILY [facility] Last Admin: 03/21/17 12:06 Dose: 40 mg Ferric Sodium Gluconate Complex (Ferrlecit) 125 mg IVPB DAILY [facility] Stop: 03/25/17 10:01 Last Admin: 03/21/17 11:14 Dose: 125 mg Guaifenesin (Mucinex La) 600 mg PO BID [facility] Last Admin: 03/21/17 17:44 Dose: 600 mg Home Med (Patient's Own Inhalation Solution) 1 ml INH BID [facility] Last Admin: 03/21/17 12:06 Dose: Not Given Insulin Aspart (Novolog) 0 unit SC ACHS [facility] PRN Reason: Protocol Last Admin: 03/21/17 21:46 Dose: Not Given Insulin Glargine (Lantus) 16 unit SC HS [facility] Last Admin: 03/21/17 22:55 Dose: 16 u Metformin HCl (Glucophage) 1,000 mg PO BID [facility] Last Admin: 03/21/17 17:36 Dose: 1,000 mg Methylprednisolone (Solu-Medrol) 40 mg IVP DAILY [facility] Last Admin: 03/21/17 11:14 Dose: 40 mg Montelukast Sodium (Singulair) 10 mg PO HS [facility] Last Admin: 03/21/17 22:56 Dose: 10 mg Pantoprazole Sodium (Protonix Ec Tab) 40 mg PO DAILY [facility] Last Admin: 03/21/17 11:18 Dose: 40 mg Polyethylene Glycol (Miralax) 17 gm PO DAILY [facility] Last Admin: 03/21/17 11:14 Dose: 17 gm Roflumilast (Daliresp) 500 mcg PO DAILY [facility] Last Admin: 03/21/17 11:13 Dose: 500 mcg Fluticasone/Salmeterol (Advair Diskus 250/50) 1 puff INH RBID [facility] Last Admin: 03/21/17 19:48 Dose: 1 puff Vitamin B Complex/Vitamin C (Berocca) 1 tab PO DAILY [facility] Last Admin: 03/21/17 11:14 Dose: 1 tab - Labs Labs: 03/21/17 07:21 - Constitutional Appears: Non-toxic, No Acute Distress, Chronically Ill - Head Exam Head Exam: ATRAUMATIC, NORMAL INSPECTION, NORMOCEPHALIC - Eye Exam Eye Exam: EOMI, Normal appearance, PERRL Pupil Exam: NORMAL ACCOMODATION - ENT Exam ENT Exam: Mucous Membranes Moist, Normal Exam, Normal Oropharynx, TM's Normal Bilaterally - Neck Exam Neck Exam: Normal Inspection - Cardiovascular Exam Cardiovascular Exam: REGULAR RHYTHM, +S1, +S2 - GI/Abdominal Exam GI & Abdominal Exam: Soft, Normal Bowel Sounds - Extremities Exam Extremities Exam: Full ROM, Normal Capillary Refill, Normal Inspection - Back Exam Back Exam: NORMAL INSPECTION - Neurological Exam Neurological Exam: Alert, Awake, CN II-XII Intact, Normal Gait, Oriented x3 - Psychiatric Exam Psychiatric exam: Anxious - Skin Skin Exam: Dry, Intact Assessment and Plan (1) Anemia Assessment & Plan: FOR EGD AND COLONOSCOPY Status: Acute (2) COPD (chronic obstructive pulmonary disease) with emphysema Status: Acute (3) Allergic rhinitis Status: Chronic (4) Diabetes Status: Chronic
[2017-03-22] MEDS: Budesonide 0.5 mg/2 ml Inhal Susp UD INH SCH ×2 (07:13→19:45)
[2017-03-22] MEDS ORDERED: Magnesium Citrate Oral SOL (300 ml) PO ONE (07:25)
[2017-03-22] MEDS: (Novolog) Insulin Aspart, Recombinant 100 u/ml 10 ml vial SC SCH ×4 (07:30→22:04)
[2017-03-22 07:32] LABS: INR 1.1
[2017-03-22 07:35] LABS: BASO # 0.1 K/uL (0.0-0.2); BASO % 0.7 % (0.0-2.0); EOS # 0.2 K/uL (0.0-0.7); EOS % 1.8 % (0.0-4.0); HEMATOCRIT 28.3 % (35.0-51.0); LYMPH # 2.2 K/uL (1.0-4.3); LYMPH % 19.7 % (20.0-40.0); MEAN CELL VOLUME 61.6 fL (80.0-94.0); MEAN CORPUSCULAR HEMOGLOBIN 18.6 pg (27.0-31.0); MEAN CORPUSCULAR HGB CONC 30.2 g/dL (33.0-37.0); MONO # 0.8 K/uL (0.0-0.8); MONO % 7.5 % (0.0-10.0); NRBC % 0.1 % (0.0-2.0); RED CELL DISTRIBUTION WIDTH 21.5 % (11.5-14.5); WHITE BLOOD COUNT 11.1 K/uL (4.8-10.8)
[2017-03-22 07:44] LABS: BLOOD UREA NITROGEN 4 mg/dL (9-20); CALCIUM 8.9 mg/dl (8.6-10.4); CARBON DIOXIDE 33 mmol/L (22-30); CHLORIDE 97 mmol/L (98-107); GFR AFRICAN-AMERICAN > 60; GLUCOSE,RANDOM 115 mg/dL (75-110); POTASSIUM 3.8 mmol/L (3.6-5.2); SODIUM 141 mmol/L (132-148)
[2017-03-22] MEDS: Fluticasone-Salmeterol 250-50mcg Diskus INH SCH ×2 (09:24→19:45)
[2017-03-22] MEDS: BROVANA 15 MCG/2 ML INH SCH (10:00)
[2017-03-22] MEDS ORDERED: Propofol 10 mg/ml Inj (20 ML) ONE ×2 (11:45→12:36)
[2017-03-22] MEDS ORDERED: Midazolam 2 MG/2 ML VIAL ONE (11:47)
[2017-03-22] MEDS ORDERED: Lactated Ringer's 500 ML IV ONE ×2 (11:52)
[2017-03-22] MEDS: Vitamin B Complex/Vitamin C Tab PO SCH (12:10)
[2017-03-22] MEDS: Pantoprazole 40 mg EC Tab PO SCH (12:11)
[2017-03-22] MEDS: guaiFENesin 600 mg ER Tab PO SCH ×2 (12:11→18:04)
[2017-03-22] MEDS: Enoxaparin 40 mg Syringe SC SCH (12:11)
[2017-03-22] MEDS ORDERED: Lactated Ringer's 500 ML IV SCH (12:15)
[2017-03-22] MEDS: Ferric Sodium Gluconat Complex 62.5 mg/5 ml Vial IVPB SCH ×2 (13:05→16:40)
[2017-03-22] MEDS: POLYETHYLENE GLYCOL 3350 17 GM/Dose PACKET PO SCH (13:05)
[2017-03-22] MEDS: MethylPREDNISolone 40 mg Vial IVP SCH (13:06)
--- NOTE | 2017-03-22 17:47 | CP.PCM.CON ---
History of Present Illness - History of Present Illness History of Present Illness: SURGERY CONSULT NOTE FOR DR. MANZANO 66M originally presented to the hospital for COPD exacerbation. Patient's history of anemia which prompted a colonoscopy. Colonoscopy was done today which showed total of 5 polyps throughout the colon. 3 of the 5 polyps were resected and retrieved. 2 polyps in the rectal-sigmoid region were unresectable , however, biopsied and tattooed. Patient denies any GI symptoms such as: fever , chills, abdominal pain, nausea, vomiting, diarrhea, constipation or any blood per rectum. Patient is tolerating diet. PMH: COPD, Anemia, Diabetes Mellitus PSH: Cataract surgery, cardiac catherization w/o stent placement Social History: admits to [facility] for 30 years Allergies: Tylenol , Fish and shrimp Past Patient History - Infectious Disease Hx of Infectious Diseases: None - Past Medical History & Family History Past Medical History?: Yes - Past Social History Smoking Status: Former Smoker - CARDIAC Hx Congestive Heart Failure: Yes Hx Hypercholesterolemia: Yes Hx Hypertension: Yes - PULMONARY Hx Chronic Obstructive Pulmonary Disease (COPD): Yes - NEUROLOGICAL Hx Neurological Disorder: No - HEENT Hx HEENT Problems: Yes Hx Cataracts: Yes (left cataract removed, r cataract) Other/Comment: wears eyeglasses for distance - RENAL Hx Chronic Kidney Disease: Yes - ENDOCRINE/METABOLIC Hx Diabetes Mellitus Type 2: Yes - HEMATOLOGICAL/ONCOLOGICAL Hx Blood Disorders: No - INTEGUMENTARY Hx Dermatological Problems: No - MUSCULOSKELETAL/RHEUMATOLOGICAL Hx Arthritis: Yes (BACK; KNEES) - GASTROINTESTINAL Hx Gastritis: No - PSYCHIATRIC Hx Anxiety: Yes Hx Substance Use: No - SURGICAL HISTORY Hx Surgeries: Yes Hx Cardiac Catheterization: Yes (11/2015) - ANESTHESIA Hx Anesthesia: Yes Hx Anesthesia Reactions: Yes (pt dont know. aware) Hx Malignant Hyperthermia: No Meds Allergies/Adverse Reactions: Allergies Allergy/AdvReac Type Severity Reaction Status Date / Time acetaminophen [From Tylenol] Allergy RASH Verified 03/02/17 22:26 FISH Allergy SWELLING Verified 03/02/17 22:26 shrimp Allergy SHORTNESS Verified 03/02/17 22:26 OF BREATH - Medications Medications: Current Medications Albuterol/Ipratropium (Duoneb 3 Mg/0.5 Mg (3 Ml) Ud) 3 ml INH RQ6 [facility] Last Admin: 03/22/17 13:19 Dose: Not Given Alprazolam (Xanax) 0.5 mg PO BID PRN PRN Reason: Anxiety Stop: 03/26/17 08:44 Last Admin: 03/21/17 22:56 Dose: 0.5 mg Budesonide (Pulmicort Respules) 0.5 mg INH RBID [facility] Last Admin: 03/22/17 07:13 Dose: 0.5 mg Docusate Sodium (Colace) 100 mg PO BID [facility] Last Admin: 03/22/17 12:10 Dose: Not Given Enoxaparin Sodium (Lovenox) 40 mg SC DAILY [facility] Last Admin: 03/22/17 12:11 Dose: Not Given Ferric Sodium Gluconate Complex (Ferrlecit) 125 mg IVPB DAILY [facility] Stop: 03/25/17 10:01 Last Admin: 03/22/17 16:40 Dose: 125 mg Guaifenesin (Mucinex La) 600 mg PO BID [facility] Last Admin: 03/22/17 12:11 Dose: Not Given Home Med (Patient's Own Inhalation Solution) 1 ml INH BID [facility] Last Admin: 03/21/17 12:06 Dose: Not Given Lactated Ringer's (Lactated Ringer's 500ml) 500 mls @ 75 mls/hr IV .Q6H40M [facility] Insulin Aspart (Novolog) 0 unit SC [facility] PRN Reason: Protocol Last Admin: 03/22/17 07:30 Dose: Not Given Insulin Glargine (Lantus) 16 unit SC [facility] Last Admin: 03/21/17 22:55 Dose: 16 u Metformin HCl (Glucophage) 1,000 mg PO BID [facility] Last Admin: 03/22/17 12:10 Dose: Not Given Methylprednisolone (Solu-Medrol) 40 mg IVP DAILY [facility] Last Admin: 03/22/17 13:06 Dose: Not Given Montelukast Sodium (Singulair) 10 mg PO HS [facility] Last Admin: 03/21/17 22:56 Dose: 10 mg Pantoprazole Sodium (Protonix Ec Tab) 40 mg PO DAILY [facility] Last Admin: 03/22/17 12:11 Dose: Not Given Polyethylene Glycol (Miralax) 17 gm PO DAILY [facility] Last Admin: 03/22/17 13:05 Dose: Not Given Roflumilast (Daliresp) 500 mcg PO DAILY [facility] Last Admin: 03/22/17 13:04 Dose: Not Given Fluticasone/Salmeterol (Advair Diskus 250/50) 1 puff INH RBID [facility] Last Admin: 03/22/17 09:24 Dose: 1 puff Vitamin B Complex/Vitamin C (Berocca) 1 tab PO DAILY [facility] Last Admin: 03/22/17 12:10 Dose: Not Given Physical Exam - Constitutional Appears: Non-toxic, No Acute Distress - Head Exam Head Exam: ATRAUMATIC - ENT Exam ENT Exam: Mucous Membranes Moist - Respiratory Exam Respiratory Exam: Clear to Auscultation Bilateral, NORMAL BREATHING PATTERN - Cardiovascular Exam Cardiovascular Exam: REGULAR RHYTHM, +S1, +S2 - GI/Abdominal Exam GI & Abdominal Exam: Distended, Soft. absent: Firm, Guarding, Pulsatile Mass, Rebound, Rigid, Tenderness Additional comments: Umbilical hernia noted - Extremities Exam Extremities exam: Negative for: pedal edema, tenderness - Neurological Exam Neurological exam: Alert, Oriented x3 - Psychiatric Exam Psychiatric exam: Normal Affect, Normal Mood - Skin Skin Exam: Dry, Intact, Normal Color, Warm Results - Vital Signs Recent Vital Signs: Last Vital Signs Temp 97.3 F L 03/22/17 15:40 Pulse 101 H 03/22/17 15:40 Resp 18 03/22/17 15:40 BP 118/70 03/22/17 15:40 Pulse Ox 99 03/22/17 15:40 - Labs Result Diagrams: 03/22/17 23:17 03/22/17 07:12 Labs: Laboratory Results - last 24 hr 03/21/17 03/22/17 03/22/17 21:10 06:24 07:12 WBC 11.1 H RBC 4.59 Hgb 8.6 L Hct 28.3 L MCV 61.6 L MCH 18.6 L MCHC 30.2 L RDW 21.5 H Plt Count 262 MPV 9.0 Neut % (Auto) 70.3 Lymph % (Auto) 19.7 L [place] % (Auto) 7.5 Eos % (Auto) 1.8 Baso % (Auto) 0.7 Neut # 7.8 H Lymph # 2.2 [place] # 0.8 Eos # 0.2 Baso # 0.1 PT INR APTT Sodium Potassium Chloride Carbon Dioxide Anion Gap BUN Creatinine Est GFR ( Amer) Est GFR (Non-Af Amer) POC Glucose (mg/dL) 281 H 125 H Random Glucose Calcium 03/22/17 03/22/17 03/22/17 07:12 07:12 14:31 WBC RBC Hgb Hct MCV MCH MCHC RDW Plt Count MPV Neut % (Auto) Lymph % (Auto) [place] % (Auto) Eos % (Auto) Baso % (Auto) Neut # Lymph # [place] # Eos # Baso # PT 11.9 INR 1.1 APTT 28 Sodium 141 Potassium 3.8 Chloride 97 L Carbon Dioxide 33 H Anion Gap 15 BUN 4 L Creatinine 0.6 L Est GFR ( Amer) > 60 Est GFR (Non-Af Amer) > 60 POC Glucose (mg/dL) 178 H Random Glucose 115 H Calcium 8.9 Assessment & Plan - Assessment and Plan (Free Text) Assessment: 66M presents with endoscopically unresectable rectal-sigmoid polyp as per colonoscopy Colonoscopy: 5 polyps throughout the colon. 3 resected and 2 remaining in the rectal-sigmoid (15mm and 40mm). Plan: - follow-up pathology - possible repeat colonoscopy as per GI depending on pathology - f/u CT Scan - Plan OR Sunday Discussed with Dr. Emilia Harding, PGY2
--- NOTE | 2017-03-22 21:12 | PN ---
SUBJECTIVE: The patient was seen prior to upper endoscopy. He was comfortable with nasal O2. He denies any chest pain. PHYSICAL EXAMINATION VITAL SIGNS: Blood pressure 118/70, heart rate 101, temperature 97.3, respirations 18. HEENT: Fair conjunctivae. CHEST: Bilateral rhonchi. HEART: Sounds regular. ABDOMEN: Soft. EXTREMITIES: Trace pedal edema. LABORATORY DATA: Hemoglobin and hematocrit 8.6 and 28.3, white count and platelet count of 11.1 and 262,000. SMA-7 showed sodium 141, potassium 3.8, chloride 97, CO2 of 33, glucose 115, BUN 4, creatinine 0.6. ASSESSMENT: 1. Advanced chronic obstructive lung disease. 2. Consider mild right-sided heart failure. 3. Anemia. 4. Diabetes mellitus. RECOMMENDATIONS: Continue current Colace, albuterol inhaler, Ferrlecit infusion, metformin, Mucinex LA, oral Protonix, and IV Solu-Medrol. The patient will undergo upper and lower endoscopy today. Mukesh Correia MD
[2017-03-22] MEDS: (Lantus) Insulin Glargine, Recombinant SC SCH (22:14)
[2017-03-22 23:21] LABS: BASO # 0.1 K/uL (0.0-0.2); BASO % 0.6 % (0.0-2.0); EOS # 0.1 K/uL (0.0-0.7); HEMATOCRIT 29.9 % (35.0-51.0); LYMPH # 1.3 K/uL (1.0-4.3); LYMPH % 10.4 % (20.0-40.0); MEAN CELL VOLUME 61.8 fL (80.0-94.0); MEAN CORPUSCULAR HEMOGLOBIN 18.5 pg (27.0-31.0); MEAN CORPUSCULAR HGB CONC 29.9 g/dL (33.0-37.0); MEAN PLATELET VOLUME 8.7 fL (7.2-11.7); MONO # 0.7 K/uL (0.0-0.8); MONO % 5.6 % (0.0-10.0); RED CELL DISTRIBUTION WIDTH 21.5 % (11.5-14.5); WHITE BLOOD COUNT 12.7 K/uL (4.8-10.8)
[2017-03-23] MEDS: Albuterol-Ipratrop 3 mg / 0.5 (3 ml) UD INH SCH ×4 (01:04→19:30)
--- NOTE | 2017-03-23 01:56 | CP.PCM.PN ---
Subjective - Date & Time of Evaluation Date of Evaluation: 03/22/17 Time of Evaluation: 20:34 - Subjective Subjective: COLONIC LESION, NO FRESH BLEEDING. NO FEVER, FOR SURGICAL CONSULT, NO CHEST PAIN Objective - Vital Signs/Intake and Output Vital Signs (last 24 hours): Temp Pulse Resp BP Pulse Ox 98.2 F 105 H 20 119/74 99 03/23/17 01:13 03/23/17 01:13 03/23/17 01:13 03/23/17 01:13 03/23/17 01:13 Intake and Output: 03/22/17 03/23/17 18:59 06:59 Intake Total 480 580 Balance 480 580 - Medications Medications: Current Medications Albuterol/Ipratropium (Duoneb 3 Mg/0.5 Mg (3 Ml) Ud) 3 ml INH RQ6 [facility] Last Admin: 03/23/17 01:04 Dose: 3 ml Alprazolam (Xanax) 0.5 mg PO BID PRN PRN Reason: Anxiety Stop: 03/26/17 08:44 Last Admin: 03/22/17 22:19 Dose: 0.5 mg Budesonide (Pulmicort Respules) 0.5 mg INH RBID [facility] Last Admin: 03/22/17 19:45 Dose: 0.5 mg Docusate Sodium (Colace) 100 mg PO BID [facility] Last Admin: 03/22/17 18:04 Dose: 100 mg Enoxaparin Sodium (Lovenox) 40 mg SC DAILY [facility] Last Admin: 03/22/17 12:11 Dose: Not Given Ferric Sodium Gluconate Complex (Ferrlecit) 125 mg IVPB DAILY [facility] Stop: 03/25/17 10:01 Last Admin: 03/22/17 16:40 Dose: 125 mg Guaifenesin (Mucinex La) 600 mg PO BID [facility] Last Admin: 03/22/17 18:04 Dose: 600 mg Home Med (Patient's Own Inhalation Solution) 1 ml INH BID [facility] Last Admin: 03/21/17 12:06 Dose: Not Given Lactated Ringer's (Lactated Ringer's 500ml) 500 mls @ 75 mls/hr IV .Q6H40M [facility] Insulin Aspart (Novolog) 0 unit SC [facility] PRN Reason: Protocol Last Admin: 03/22/17 22:04 Dose: Not Given Insulin Glargine (Lantus) 16 unit SC [facility] Last Admin: 03/22/17 22:14 Dose: 16 u Metformin HCl (Glucophage) 1,000 mg PO BID [facility] Last Admin: 03/22/17 18:04 Dose: 1,000 mg Methylprednisolone (Solu-Medrol) 40 mg IVP DAILY [facility] Last Admin: 03/22/17 13:06 Dose: Not Given Montelukast Sodium (Singulair) 10 mg PO [facility] Last Admin: 03/22/17 22:14 Dose: 10 mg Pantoprazole Sodium (Protonix Ec Tab) 40 mg PO DAILY [facility] Last Admin: 03/22/17 12:11 Dose: Not Given Polyethylene Glycol (Miralax) 17 gm PO DAILY [facility] Last Admin: 03/22/17 13:05 Dose: Not Given Pregabalin (Lyrica) 50 mg PO BID [facility] Last Admin: 03/22/17 21:56 Dose: 50 mg Roflumilast (Daliresp) 500 mcg PO DAILY [facility] Last Admin: 03/22/17 13:04 Dose: Not Given Fluticasone/Salmeterol (Advair Diskus 250/50) 1 puff INH RBID [facility] Last Admin: 03/22/17 19:45 Dose: 1 puff Vitamin B Complex/Vitamin C (Berocca) 1 tab PO DAILY [facility] Last Admin: 03/22/17 12:10 Dose: Not Given - Labs Labs: 03/22/17 23:17 03/22/17 07:12 PT 11.9 SECONDS (9.7-12.2) 03/22/17 07:12 INR 1.1 03/22/17 07:12 APTT 28 SECONDS (21-34) 03/22/17 07:12 - Constitutional Appears: Chronically Ill - Head Exam Head Exam: ATRAUMATIC, NORMAL INSPECTION, NORMOCEPHALIC - Eye Exam Eye Exam: EOMI, Normal appearance, PERRL Pupil Exam: NORMAL ACCOMODATION - ENT Exam ENT Exam: Mucous Membranes Moist, Normal Exam, Normal Oropharynx, TM's Normal Bilaterally - Neck Exam Neck Exam: Full ROM, Normal Inspection - Respiratory Exam Respiratory Exam: Prolonged Expiratory Phase, Rales, Rhonchi - Cardiovascular Exam Cardiovascular Exam: Tachycardia, REGULAR RHYTHM, +S1, +S2 - GI/Abdominal Exam GI & Abdominal Exam: Soft, Normal Bowel Sounds - Rectal Exam Rectal Exam: NORMAL INSPECTION - Extremities Exam Extremities Exam: Full ROM, Normal Capillary Refill, Normal Inspection - Neurological Exam Neurological Exam: Alert, Awake, CN II-XII Intact, Normal Gait, Oriented x3 Neuro motor strength exam: Left Upper Extremity: 5, Right Upper Extremity: 5, Left Lower Extremity: 5, Right Lower Extremity: 5 Assessment and Plan (1) Anemia Assessment & Plan: COLON LESION, FOR OR IF STABLE Status: Acute (2) COPD (chronic obstructive pulmonary disease) with emphysema Status: Acute (3) Allergic rhinitis Status: Chronic (4) Diabetes Status: Chronic
[2017-03-23] MEDS: Budesonide 0.5 mg/2 ml Inhal Susp UD INH SCH ×2 (07:20→19:30)
[2017-03-23 07:22] LABS: BASO # 0.1 K/uL (0.0-0.2); BASO % 0.8 % (0.0-2.0); EOS # 0.2 K/uL (0.0-0.7); EOS % 1.6 % (0.0-4.0); HEMATOCRIT 31.8 % (35.0-51.0); MEAN CELL VOLUME 62.6 fL (80.0-94.0); MEAN CORPUSCULAR HEMOGLOBIN 18.7 pg (27.0-31.0); MEAN CORPUSCULAR HGB CONC 29.9 g/dL (33.0-37.0); MEAN PLATELET VOLUME 8.8 fL (7.2-11.7); MONO # 0.7 K/uL (0.0-0.8); MONO % 5.4 % (0.0-10.0); WHITE BLOOD COUNT 13.3 K/uL (4.8-10.8)
[2017-03-23] MEDS: (Novolog) Insulin Aspart, Recombinant 100 u/ml 10 ml vial SC SCH ×4 (08:22→21:43)
[2017-03-23] MEDS: Fluticasone-Salmeterol 250-50mcg Diskus INH SCH (09:56)
--- NOTE | 2017-03-23 09:58 | CP.PCM.PN ---
<Aram Benitez - Last Filed: 03/23/17 10:04> Subjective - Date & Time of Evaluation Date of Evaluation: 03/23/17 Time of Evaluation: 06:30 - Subjective Subjective: PGY4 Pt seen and examined bedside s/p EGD and colonoscopy yesterday Denies nay abd pain, nausea or vomiting wants to advance diet Denies any melena, BRBPR, or hematachezia ROS: 10 point ros conducted, neg other than previously stated above Objective - Vital Signs/Intake and Output Vital Signs (last 24 hours): Temp Pulse Resp BP Pulse Ox 98.2 F 103 H 20 114/71 97 03/23/17 07:07 03/23/17 07:07 03/23/17 07:07 03/23/17 07:07 03/23/17 07:07 Intake and Output: 03/23/17 03/23/17 06:59 18:59 Intake Total 580 Balance 580 - Medications Medications: Current Medications Albuterol/Ipratropium (Duoneb 3 Mg/0.5 Mg (3 Ml) Ud) 3 ml INH RQ6 [facility] Last Admin: 03/23/17 07:20 Dose: 3 ml Alprazolam (Xanax) 0.5 mg PO BID PRN PRN Reason: Anxiety Stop: 03/26/17 08:44 Last Admin: 03/22/17 22:19 Dose: 0.5 mg Budesonide (Pulmicort Respules) 0.5 mg INH RBID [facility] Last Admin: 03/23/17 07:20 Dose: 0.5 mg Docusate Sodium (Colace) 100 mg PO BID [facility] Last Admin: 03/22/17 18:04 Dose: 100 mg Enoxaparin Sodium (Lovenox) 40 mg SC DAILY [facility] Last Admin: 03/22/17 12:11 Dose: Not Given Ferric Sodium Gluconate Complex (Ferrlecit) 125 mg IVPB DAILY [facility] Stop: 03/25/17 10:01 Last Admin: 03/22/17 16:40 Dose: 125 mg Guaifenesin (Mucinex La) 600 mg PO BID [facility] Last Admin: 03/22/17 18:04 Dose: 600 mg Home Med (Patient's Own Inhalation Solution) 1 ml INH BID [facility] Last Admin: 03/21/17 12:06 Dose: Not Given Lactated Ringer's (Lactated Ringer's 500ml) 500 mls @ 75 mls/hr IV .Q6H40M [facility] Insulin Aspart (Novolog) 0 unit SC [facility] PRN Reason: Protocol Last Admin: 03/23/17 08:22 Dose: Not Given Insulin Glargine (Lantus) 16 unit SC [facility] Last Admin: 03/22/17 22:14 Dose: 16 u Metformin HCl (Glucophage) 1,000 mg PO BID [facility] Last Admin: 03/22/17 18:04 Dose: 1,000 mg Methylprednisolone (Solu-Medrol) 40 mg IVP DAILY [facility] Last Admin: 03/22/17 13:06 Dose: Not Given Montelukast Sodium (Singulair) 10 mg PO [facility] Last Admin: 03/22/17 22:14 Dose: 10 mg Pantoprazole Sodium (Protonix Ec Tab) 40 mg PO DAILY [facility] Last Admin: 03/22/17 12:11 Dose: Not Given Polyethylene Glycol (Miralax) 17 gm PO DAILY [facility] Last Admin: 03/22/17 13:05 Dose: Not Given Pregabalin (Lyrica) 50 mg PO BID [facility] Last Admin: 03/22/17 21:56 Dose: 50 mg Roflumilast (Daliresp) 500 mcg PO DAILY [facility] Last Admin: 03/22/17 13:04 Dose: Not Given Fluticasone/Salmeterol (Advair Diskus 250/50) 1 puff INH RBID [facility] Last Admin: 03/22/17 19:45 Dose: 1 puff Vitamin B Complex/Vitamin C (Berocca) 1 tab PO DAILY [facility] Last Admin: 03/22/17 12:10 Dose: Not Given - Labs Labs: 03/23/17 07:10 03/22/17 07:12 PT 11.9 SECONDS (9.7-12.2) 03/22/17 07:12 INR 1.1 03/22/17 07:12 APTT 28 SECONDS (21-34) 03/22/17 07:12 - Constitutional Appears: Non-toxic, No Acute Distress - Head Exam Head Exam: NORMOCEPHALIC - Eye Exam Eye Exam: Normal appearance - ENT Exam ENT Exam: Mucous Membranes Moist, Normal Exam - Neck Exam Neck Exam: Normal Inspection - Respiratory Exam Respiratory Exam: Clear to Ausculation Bilateral, NORMAL BREATHING PATTERN - Cardiovascular Exam Cardiovascular Exam: REGULAR RHYTHM - GI/Abdominal Exam GI & Abdominal Exam: Distended, Normal Bowel Sounds. absent: Firm, Guarding, Rigid, Tenderness, Mass, Organomegaly - Extremities Exam Extremities Exam: Normal Inspection. absent: Pedal Edema, Tenderness - Neurological Exam Neurological Exam: Alert, Awake, Oriented x3 - Psychiatric Exam Psychiatric exam: Normal Affect, Normal Mood - Skin Skin Exam: Dry, Intact, Normal Color, Warm Assessment and Plan - Assessment and Plan (Free Text) Assessment: This pt is a 66M w/ hx of COPD, CAD, HTN, CHF who presents with SOB. Pt is being tx for COPD exacerbation. His has been progressively having worsening anemia. Pt is s/p EGD and colonoscopy, x5 large polyps were found. 3 were resected 1. microcytic anemia likely multifactorial including large polyps vs AVM, r/o malignancy 2. Multiple polyps; 15mm sigmoid and 40mm recto-sigmoid polyps could not be resected 3. hx of constipation 4. Hx of CHF and CAD Plan: -advance diet as tolertaed -awaiting path results -recommend surgical consult for sigmoid resections - two large polys one in the sigmoid 15mm abd recto-sigmoid 40mm coulkd not be endoscopically resected -pt wants to defer surgery at this time and wants surgery at a later time as an outpt -will need a follow-up repeat colonoscopy in 1 month or post surgery -no additional GI intervention at this time D/W Dr. Cox <[place] Cox - Last Filed: 03/23/17 12:37> Objective - Vital Signs/Intake and Output Vital Signs (last 24 hours): Temp Pulse Resp BP Pulse Ox 98.2 F 103 H 20 114/71 97 03/23/17 07:07 03/23/17 07:07 03/23/17 07:07 03/23/17 07:07 03/23/17 07:07 Intake and Output: 03/23/17 03/23/17 06:59 18:59 Intake Total 580 Balance 580 - Medications Medications: Current Medications Albuterol/Ipratropium (Duoneb 3 Mg/0.5 Mg (3 Ml) Ud) 3 ml INH RQ6 [facility] Last Admin: 03/23/17 07:20 Dose: 3 ml Alprazolam (Xanax) 0.5 mg PO BID PRN PRN Reason: Anxiety Stop: 03/26/17 08:44 Last Admin: 03/23/17 10:13 Dose: 0.5 mg Budesonide (Pulmicort Respules) 0.5 mg INH RBID [facility] Last Admin: 03/23/17 07:20 Dose: 0.5 mg Docusate Sodium (Colace) 100 mg PO BID [facility] Last Admin: 03/23/17 10:08 Dose: 100 mg Enoxaparin Sodium (Lovenox) 40 mg SC DAILY [facility] Last Admin: 03/22/17 12:11 Dose: Not Given Ferric Sodium Gluconate Complex (Ferrlecit) 125 mg IVPB Q24H [facility] Stop: 03/28/17 17:01 Guaifenesin (Mucinex La) 600 mg PO BID [facility] Last Admin: 03/23/17 10:09 Dose: 600 mg Home Med (Patient's Own Inhalation Solution) 1 ml INH BID [facility] Last Admin: 03/23/17 12:07 Dose: Not Given Lactated Ringer's (Lactated Ringer's 500ml) 500 mls @ 75 mls/hr IV .Q6H40M [facility] Insulin Aspart (Novolog) 0 unit SC [facility] PRN Reason: Protocol Last Admin: 03/23/17 08:22 Dose: Not Given Insulin Glargine (Lantus) 16 unit SC [facility] Last Admin: 03/22/17 22:14 Dose: 16 u Metformin HCl (Glucophage) 1,000 mg PO BID [facility] Last Admin: 03/23/17 10:08 Dose: 1,000 mg Methylprednisolone (Solu-Medrol) 40 mg IVP DAILY [facility] Last Admin: 03/23/17 10:08 Dose: 40 mg Montelukast Sodium (Singulair) 10 mg PO HS [facility] Last Admin: 03/22/17 22:14 Dose: 10 mg Pantoprazole Sodium (Protonix Ec Tab) 40 mg PO DAILY [facility] Last Admin: 03/23/17 10:08 Dose: 40 mg Polyethylene Glycol (Miralax) 17 gm PO DAILY [facility] Last Admin: 03/23/17 10:08 Dose: 17 gm Pregabalin (Lyrica) 50 mg PO BID [facility] Last Admin: 03/23/17 10:13 Dose: 50 mg Roflumilast (Daliresp) 500 mcg PO DAILY [facility] Last Admin: 03/23/17 10:08 Dose: 500 mcg Fluticasone/Salmeterol (Advair Diskus 250/50) 1 puff INH RBID [facility] Last Admin: 03/23/17 09:56 Dose: 1 puff Vitamin B Complex/Vitamin C (Berocca) 1 tab PO DAILY [facility] Last Admin: 03/23/17 10:08 Dose: 1 tab - Labs Labs: 03/23/17 07:10 03/22/17 07:12 PT 11.9 SECONDS (9.7-12.2) 03/22/17 07:12 INR 1.1 03/22/17 07:12 APTT 28 SECONDS (21-34) 03/22/17 07:12 Attending/Attestation - Attestation I have personally seen and examined this patient.: Yes I have fully participated in the care of the patient.: Yes I have reviewed all pertinent clinical information, including history, physical exam and plan: Yes Notes (Text): 03/23/17 12:36 66 year old male with COPD a/w exacerbation, also anemia, s/p egd/colonoscopy. 1. Colon polyps 2. Anemia Plan: -incomplete removal of colon polyps -large sigmoid polyp not removed -consider surgical resection vs repeat colonoscopy -d/w patient -supportive measures -will sign off -follow up path results
[2017-03-23] MEDS: Pantoprazole 40 mg EC Tab PO SCH (10:08)
[2017-03-23] MEDS: POLYETHYLENE GLYCOL 3350 17 GM/Dose PACKET PO SCH (10:08)
[2017-03-23] MEDS: Vitamin B Complex/Vitamin C Tab PO SCH (10:08)
[2017-03-23] MEDS: MethylPREDNISolone 40 mg Vial IVP SCH (10:08)
[2017-03-23] MEDS: guaiFENesin 600 mg ER Tab PO SCH ×2 (10:09→17:27)
[2017-03-23] MEDS ORDERED: Iohexol 240 (50 ml) PO ONE (10:30)
[2017-03-23] MEDS ORDERED: Barium Sulfate Susp 2.1% w/v, 2.0% w/w 450 mL Bottle PO ONE ×2 (11:23→14:48)
[2017-03-23] MEDS: BROVANA 15 MCG/2 ML INH SCH (12:07)
[2017-03-23] MEDS: Enoxaparin 40 mg Syringe SC SCH (13:54)
--- NOTE | 2017-03-23 14:02 | CP.PCM.PN ---
Subjective - Date & Time of Evaluation Date of Evaluation: 03/23/17 Time of Evaluation: 07:20 - Subjective Subjective: General Surgery- Dr. Nieto Pt S&E at bedside this AM. No acute events overnight. States still SOB due to Emphysema. denies abdominal pain, BPR. Pt initially stated he wanted to go home , and has now changed his mind again and is more willing to have surgery done during this hospital visit. Objective - Vital Signs/Intake and Output Vital Signs (last 24 hours): Temp Pulse Resp BP Pulse Ox 98.2 F 103 H 20 114/71 97 03/23/17 07:07 03/23/17 07:07 03/23/17 07:07 03/23/17 07:07 03/23/17 07:07 Intake and Output: 03/23/17 03/23/17 06:59 18:59 Intake Total 580 Balance 580 - Medications Medications: Current Medications Albuterol/Ipratropium (Duoneb 3 Mg/0.5 Mg (3 Ml) Ud) 3 ml INH RQ6 [facility] Last Admin: 03/23/17 13:20 Dose: 3 ml Alprazolam (Xanax) 0.5 mg PO BID PRN PRN Reason: Anxiety Stop: 03/26/17 08:44 Last Admin: 03/23/17 10:13 Dose: 0.5 mg Budesonide (Pulmicort Respules) 0.5 mg INH RBID [facility] Last Admin: 03/23/17 07:20 Dose: 0.5 mg Docusate Sodium (Colace) 100 mg PO BID [facility] Last Admin: 03/23/17 10:08 Dose: 100 mg Enoxaparin Sodium (Lovenox) 40 mg SC DAILY [facility] Last Admin: 03/23/17 13:54 Dose: 40 mg Ferric Sodium Gluconate Complex (Ferrlecit) 125 mg IVPB Q24H [facility] Stop: 03/28/17 17:01 Fluconazole (Diflucan) 100 mg PO DAILY [facility] Guaifenesin (Mucinex La) 600 mg PO BID [facility] Last Admin: 03/23/17 10:09 Dose: 600 mg Home Med (Patient's Own Inhalation Solution) 1 ml INH BID [facility] Last Admin: 03/23/17 12:07 Dose: Not Given Lactated Ringer's (Lactated Ringer's 500ml) 500 mls @ 75 mls/hr IV .Q6H40M [facility] Insulin Aspart (Novolog) 0 unit SC ACHS [facility] PRN Reason: Protocol Last Admin: 03/23/17 12:39 Dose: 2 unit Insulin Glargine (Lantus) 16 unit SC [facility] Last Admin: 03/22/17 22:14 Dose: 16 u Metformin HCl (Glucophage) 1,000 mg PO BID [facility] Last Admin: 03/23/17 10:08 Dose: 1,000 mg Methylprednisolone (Solu-Medrol) 40 mg IVP DAILY [facility] Last Admin: 03/23/17 10:08 Dose: 40 mg Montelukast Sodium (Singulair) 10 mg PO HS [facility] Last Admin: 03/22/17 22:14 Dose: 10 mg Pantoprazole Sodium (Protonix Ec Tab) 40 mg PO DAILY [facility] Last Admin: 03/23/17 10:08 Dose: 40 mg Polyethylene Glycol (Miralax) 17 gm PO DAILY [facility] Last Admin: 03/23/17 10:08 Dose: 17 gm Pregabalin (Lyrica) 50 mg PO BID [facility] Last Admin: 03/23/17 10:13 Dose: 50 mg Roflumilast (Daliresp) 500 mcg PO DAILY [facility] Last Admin: 03/23/17 10:08 Dose: 500 mcg Fluticasone/Salmeterol (Advair Diskus 250/50) 1 puff INH RBID [facility] Last Admin: 03/23/17 09:56 Dose: 1 puff Vitamin B Complex/Vitamin C (Berocca) 1 tab PO DAILY [facility] Last Admin: 03/23/17 10:08 Dose: 1 tab - Labs Labs: 03/23/17 07:10 03/22/17 07:12 PT 11.9 SECONDS (9.7-12.2) 03/22/17 07:12 INR 1.1 03/22/17 07:12 APTT 28 SECONDS (21-34) 03/22/17 07:12 - Constitutional Appears: No Acute Distress - Head Exam Head Exam: ATRAUMATIC - Eye Exam Eye Exam: EOMI - Respiratory Exam Respiratory Exam: NORMAL BREATHING PATTERN. absent: Accessory Muscle Use, Rhonchi, Wheezes - Cardiovascular Exam Cardiovascular Exam: +S1, +S2 - GI/Abdominal Exam GI & Abdominal Exam: Soft, Normal Bowel Sounds. absent: Distended, Firm, Guarding, Tenderness - Neurological Exam Neurological Exam: Awake, Oriented x3 - Skin Skin Exam: Dry, Normal Color Assessment and Plan - Assessment and Plan (Free Text) Assessment: 66M hx of COPD and Emphysema w/ sigmoid polyp Plan: - reviewed path; no malignancy seen - will attempt to optimize pt for surgery next week - further recs per Dr. Emilia Gatica PGY1
--- NOTE | 2017-03-23 15:32 | CT ---
PROCEDURE: CT Abdomen and Pelvis with contrast HISTORY: colon mass COMPARISON: No prior abdomen and pelvis CT exam. TECHNIQUE: Contrast dose: None Radiation dose: Total exam DLP = 521 mGy-cm. This CT exam was performed using one or more of the following dose reduction techniques: Automated exposure control, adjustment of the mA and/or kV according to patient size, and/or use of iterative reconstruction technique. FINDINGS: LOWER THORAX: Limited scarring seen left lower lobe base uplifting the subpleural fat. LIVER: Borderline hepatomegaly but no definite cirrhotic pattern appreciate this time. No enhancing mass. Diminished attenuation is seen diffusely compatible with diffuse fatty infiltration. GALLBLADDER AND BILE DUCTS: Unremarkable. PANCREAS: Unremarkable. No gross lesion or ductal dilatation. SPLEEN: Unremarkable. ADRENALS: Unremarkable. No mass. KIDNEYS AND URETERS: A punctate intrarenal calculus identified at the midpole right kidney. None is seen the left. There is no obstructive uropathy identified bilaterally. Limited streaky perinephric change are identified bilaterally which are nonspecific. VASCULATURE: Unremarkable. No aortic aneurysm. Moderately atherosclerotic abdominal aorta. BOWEL: Unremarkable. No obstruction. NoThe large bowel is well opacified however a retained oral contrast material does limit the study particularly at the rectum which cannot be cleared for a mass. The jett of the rectum appears somewhat thickened. Further clinical correlation is advised tear. No constricting or obstructing mass is appreciable throughout the remainder of the large bowel however. No bowel obstruction measure edema or ascites. Small bowel is unremarkable diffusely. Limited sigmoid diverticulosis without diverticulitis. APPENDIX: Normal appendix. PERITONEUM: Unremarkable. No free fluid. No free air. LYMPH NODES: Unremarkable. No enlarged lymph nodes. BLADDER: Urine bladder is decompressed and poorly evaluated as result. REPRODUCTIVE: Mild prostate gland enlargement. BONES: Mild multilevel lumbar spondylosis is identified. OTHER FINDINGS: A small umbilical hernia is identified containing only fat with the neck measuring 1.5 cm. IMPRESSION: 1. There is some thickening of the jett of the rectal vault especially inferiorly however retained fecal material obscures this evaluation. No constricting mass or obstructing lesion is seen throughout the remainder the colon which is adequately opacified by oral contrast material though intermixed with retained stool. No significant lymphadenopathy the pelvic sidewalls retroperitoneum and bowel mesentery. 2. Fatty liver. Borderline hepatomegaly. No defined mass seen throughout the liver as imaged. 3. Punctate intrarenal calculus midpole right kidney.
--- NOTE | 2017-03-23 16:00 | CP.PCM.PN ---
Subjective - Date & Time of Evaluation Date of Evaluation: 03/23/17 Time of Evaluation: 15:59 - Subjective Subjective: discussed and path reviewd adenoma no malignancy seen will discuss with gi re extent of surgery and pulmonary status Objective - Vital Signs/Intake and Output Vital Signs (last 24 hours): Temp Pulse Resp BP Pulse Ox 98.2 F 103 H 20 114/71 97 03/23/17 07:07 03/23/17 07:07 03/23/17 07:07 03/23/17 07:07 03/23/17 07:07 Intake and Output: 03/23/17 03/23/17 06:59 18:59 Intake Total 580 Balance 580 - Medications Medications: Current Medications Albuterol/Ipratropium (Duoneb 3 Mg/0.5 Mg (3 Ml) Ud) 3 ml INH RQ6 [facility] Last Admin: 03/23/17 13:20 Dose: 3 ml Alprazolam (Xanax) 0.5 mg PO BID PRN PRN Reason: Anxiety Stop: 03/26/17 08:44 Last Admin: 03/23/17 10:13 Dose: 0.5 mg Budesonide (Pulmicort Respules) 0.5 mg INH RBID [facility] Last Admin: 03/23/17 07:20 Dose: 0.5 mg Docusate Sodium (Colace) 100 mg PO BID [facility] Last Admin: 03/23/17 10:08 Dose: 100 mg Enoxaparin Sodium (Lovenox) 40 mg SC DAILY [facility] Last Admin: 03/23/17 13:54 Dose: 40 mg Ferric Sodium Gluconate Complex (Ferrlecit) 125 mg IVPB Q24H [facility] Stop: 03/28/17 17:01 Fluconazole (Diflucan) 100 mg PO DAILY [facility] Guaifenesin (Mucinex La) 600 mg PO BID [facility] Last Admin: 03/23/17 10:09 Dose: 600 mg Home Med (Patient's Own Inhalation Solution) 1 ml INH BID [facility] Last Admin: 03/23/17 12:07 Dose: Not Given Lactated Ringer's (Lactated Ringer's 500ml) 500 mls @ 75 mls/hr IV .Q6H40M [facility] Insulin Aspart (Novolog) 0 unit SC ACHS [facility] PRN Reason: Protocol Last Admin: 03/23/17 12:39 Dose: 2 unit Insulin Glargine (Lantus) 16 unit SC HS [facility] Last Admin: 03/22/17 22:14 Dose: 16 u Metformin HCl (Glucophage) 1,000 mg PO BID [facility] Last Admin: 03/23/17 10:08 Dose: 1,000 mg Methylprednisolone (Solu-Medrol) 40 mg IVP DAILY [facility] Last Admin: 03/23/17 10:08 Dose: 40 mg Montelukast Sodium (Singulair) 10 mg PO HS [facility] Last Admin: 03/22/17 22:14 Dose: 10 mg Pantoprazole Sodium (Protonix Ec Tab) 40 mg PO DAILY [facility] Last Admin: 03/23/17 10:08 Dose: 40 mg Polyethylene Glycol (Miralax) 17 gm PO DAILY [facility] Last Admin: 03/23/17 10:08 Dose: 17 gm Pregabalin (Lyrica) 50 mg PO BID [facility] Last Admin: 03/23/17 10:13 Dose: 50 mg Roflumilast (Daliresp) 500 mcg PO DAILY [facility] Last Admin: 03/23/17 10:08 Dose: 500 mcg Fluticasone/Salmeterol (Advair Diskus 250/50) 1 puff INH RBID [facility] Last Admin: 03/23/17 09:56 Dose: 1 puff Vitamin B Complex/Vitamin C (Berocca) 1 tab PO DAILY [facility] Last Admin: 03/23/17 10:08 Dose: 1 tab - Labs Labs: 03/23/17 07:10 03/22/17 07:12 PT 11.9 SECONDS (9.7-12.2) 03/22/17 07:12 INR 1.1 03/22/17 07:12 APTT 28 SECONDS (21-34) 03/22/17 07:12
[2017-03-23] MEDS: Ferric Sodium Gluconat Complex 62.5 mg/5 ml Vial IVPB SCH (17:28)
[2017-03-23] MEDS ORDERED: MethylPREDNISolone 40 mg Vial IVP SCH (20:00)
[2017-03-23] MEDS: (Lantus) Insulin Glargine, Recombinant SC SCH (21:47)
--- NOTE | 2017-03-23 23:44 | PN ---
SUBJECTIVE: The patient underwent upper endoscopy yesterday and the findings were consistent with esophagitis, gastritis, colon polyps, cecal AVM, internal hemorrhoids. Colon polyps were resected expect for a large sigmoid polyp this could not resected and surgical evaluation was obtained. The patient denies any chest pain. Mildly short of breath, slightly anxious. PHYSICAL EXAMINATION: VITAL SIGNS: Blood pressure 114/71, heart rate 106, temperature 98.2, respirations 20. HEENT: Fair conjunctivae. CHEST: Bilateral rhonchi. HEART: Sounds regular. EXTREMITIES: No edema. LABORATORY DATA: Hemoglobin and hematocrit 9.5 and 31.8. White count and platelet count of 15.3 and 267,000. SMA-7 showed sodium 141, potassium 3.8, chloride 97, CO2 of 33, glucose 115, BUN 4, creatinine 0.6. ASSESSMENT: 1. Colonic polyps with residual prior sigmoid polyp. 2. Chronic obstructive lung disease. 3. Pulmonary hypertension and mild right-sided heart failure. 4. Diabetes mellitus. RECOMMENDATIONS: Case was discussed with BOTTLING ATTENDANT as well as manager surgical. According to Dr. Nieto, this surgery can be done as an outpatient. Still awaiting biopsy report, in case if the patient needs sigmoidectomy, the surgery can be performed from the cardiac point view; however, pulmonary clearance will be more needed given the patient's underlying chronic obstructive lung disease. Mukesh Correia MD
[2017-03-24] MEDS: Albuterol-Ipratrop 3 mg / 0.5 (3 ml) UD INH SCH ×2 (01:31→07:45)
--- NOTE | 2017-03-24 01:34 | CP.PCM.PN ---
Subjective - Date & Time of Evaluation Date of Evaluation: 03/23/17 Time of Evaluation: 20:36 - Subjective Subjective: COUGH CONGESTION, LESS SOB, FOR SURGICAL EVAL, NO NAUSEA Objective - Vital Signs/Intake and Output Vital Signs (last 24 hours): Temp Pulse Resp BP Pulse Ox 97.7 F 101 H 20 112/63 98 03/23/17 23:30 03/23/17 23:30 03/23/17 23:30 03/23/17 23:30 03/23/17 23:30 Intake and Output: 03/23/17 03/24/17 18:59 06:59 Intake Total 580 Balance 580 - Medications Medications: Current Medications Albuterol/Ipratropium (Duoneb 3 Mg/0.5 Mg (3 Ml) Ud) 3 ml INH RQ6 [facility] Last Admin: 03/24/17 01:31 Dose: 3 ml Alprazolam (Xanax) 0.5 mg PO BID PRN PRN Reason: Anxiety Stop: 03/26/17 08:44 Last Admin: 03/23/17 21:47 Dose: 0.5 mg Budesonide (Pulmicort Respules) 0.5 mg INH RBID [facility] Last Admin: 03/23/17 19:30 Dose: 0.5 mg Docusate Sodium (Colace) 100 mg PO BID [facility] Last Admin: 03/23/17 17:28 Dose: 100 mg Enoxaparin Sodium (Lovenox) 40 mg SC DAILY [facility] Last Admin: 03/23/17 13:54 Dose: 40 mg Ferric Sodium Gluconate Complex (Ferrlecit) 125 mg IVPB Q24H [facility] Stop: 03/28/17 17:01 Last Admin: 03/23/17 17:28 Dose: 125 mg Fluconazole (Diflucan) 100 mg PO DAILY [facility] Guaifenesin (Mucinex La) 600 mg PO BID [facility] Last Admin: 03/23/17 17:27 Dose: 600 mg Heparin Sodium (Porcine) (Heparin) 5,000 units SC Q8 [facility] Home Med (Patient's Own Inhalation Solution) 1 ml INH BID [facility] Last Admin: 03/23/17 12:07 Dose: Not Given Insulin Aspart (Novolog) 0 unit SC ACHS [facility] PRN Reason: Protocol Last Admin: 03/23/17 21:43 Dose: Not Given Insulin Glargine (Lantus) 16 unit SC HS [facility] Last Admin: 03/23/17 21:47 Dose: 16 u Metformin HCl (Glucophage) 1,000 mg PO BID [facility] Last Admin: 03/23/17 17:27 Dose: 1,000 mg Methylprednisolone (Solu-Medrol) 40 mg IVP DAILY [facility] Last Admin: 03/23/17 10:08 Dose: 40 mg Montelukast Sodium (Singulair) 10 mg PO HS [facility] Last Admin: 03/23/17 21:47 Dose: 10 mg Pantoprazole Sodium (Protonix Ec Tab) 40 mg PO DAILY [facility] Last Admin: 03/23/17 10:08 Dose: 40 mg Polyethylene Glycol (Miralax) 17 gm PO DAILY [facility] Last Admin: 03/23/17 10:08 Dose: 17 gm Pregabalin (Lyrica) 50 mg PO BID [facility] Last Admin: 03/23/17 17:28 Dose: 50 mg Roflumilast (Daliresp) 500 mcg PO DAILY [facility] Last Admin: 03/23/17 10:08 Dose: 500 mcg Fluticasone/Salmeterol (Advair Diskus 250/50) 1 puff INH RBID [facility] Last Admin: 03/23/17 09:56 Dose: 1 puff Vitamin B Complex/Vitamin C (Berocca) 1 tab PO DAILY [facility] Last Admin: 03/23/17 10:08 Dose: 1 tab - Labs Labs: 03/23/17 07:10 03/22/17 07:12 PT 11.9 SECONDS (9.7-12.2) 03/22/17 07:12 INR 1.1 03/22/17 07:12 APTT 28 SECONDS (21-34) 03/22/17 07:12 - Constitutional Appears: Non-toxic, No Acute Distress, Chronically Ill - Head Exam Head Exam: ATRAUMATIC, NORMAL INSPECTION, NORMOCEPHALIC - Eye Exam Eye Exam: EOMI, Normal appearance, PERRL Pupil Exam: NORMAL ACCOMODATION - ENT Exam ENT Exam: Mucous Membranes Moist, Normal Exam, Normal Oropharynx, TM's Normal Bilaterally - Neck Exam Neck Exam: Normal Inspection - Respiratory Exam Respiratory Exam: Prolonged Expiratory Phase, Rhonchi - Cardiovascular Exam Cardiovascular Exam: Tachycardia, REGULAR RHYTHM, +S1, +S2 - GI/Abdominal Exam GI & Abdominal Exam: Soft, Normal Bowel Sounds - Rectal Exam Rectal Exam: NORMAL INSPECTION - Extremities Exam Extremities Exam: Normal Capillary Refill, Normal Inspection, Pedal Edema - Back Exam Back Exam: NORMAL INSPECTION - Neurological Exam Neurological Exam: Alert, Awake, CN II-XII Intact, Normal Gait, Oriented x3 - Psychiatric Exam Psychiatric exam: Normal Affect, Normal Mood - Skin Skin Exam: Dry Assessment and Plan (1) Anemia Assessment & Plan: FOR OR NEXT WK Status: Acute (2) COPD (chronic obstructive pulmonary disease) with emphysema Status: Acute (3) Allergic rhinitis Status: Chronic (4) Diabetes Status: Chronic
[2017-03-24 07:18] LABS: BASO % 0.3 % (0.0-2.0); EOS # 0.3 K/uL (0.0-0.7); EOS % 2.7 % (0.0-4.0); HEMATOCRIT 29.1 % (35.0-51.0); LYMPH # 1.9 K/uL (1.0-4.3); LYMPH % 17.1 % (20.0-40.0); MEAN CELL VOLUME 62.5 fL (80.0-94.0); MEAN CORPUSCULAR HEMOGLOBIN 19.4 pg (27.0-31.0); MEAN PLATELET VOLUME 8.6 fL (7.2-11.7); MONO # 0.7 K/uL (0.0-0.8); MONO % 6.7 % (0.0-10.0); RED CELL DISTRIBUTION WIDTH 21.8 % (11.5-14.5); WHITE BLOOD COUNT 10.8 K/uL (4.8-10.8)
[2017-03-24] MEDS: (Novolog) Insulin Aspart, Recombinant 100 u/ml 10 ml vial SC SCH ×4 (07:30→21:01)
[2017-03-24] MEDS: Budesonide 0.5 mg/2 ml Inhal Susp UD INH SCH ×2 (07:45→19:36)
[2017-03-24] MEDS: Fluticasone-Salmeterol 250-50mcg Diskus INH SCH ×2 (08:30→19:37)
[2017-03-24] MEDS: guaiFENesin 600 mg ER Tab PO SCH ×2 (09:59→17:28)
[2017-03-24] MEDS: Vitamin B Complex/Vitamin C Tab PO SCH (09:59)
[2017-03-24] MEDS: MethylPREDNISolone 40 mg Vial IVP SCH (09:59)
[2017-03-24] MEDS: Pantoprazole 40 mg EC Tab PO SCH (09:59)
[2017-03-24] MEDS: POLYETHYLENE GLYCOL 3350 17 GM/Dose PACKET PO SCH (10:00)
[2017-03-24] MEDS: BROVANA 15 MCG/2 ML INH SCH (10:01)
--- NOTE | 2017-03-24 11:29 | CP.PCM.PN ---
Subjective - Date & Time of Evaluation Date of Evaluation: 03/24/17 Time of Evaluation: 06:35 - Subjective Subjective: Patient seen and examined this morning. No events over night. Denies abodminal pain. +BM, +flatus. Patient requesting surgical intervention be done on Sunday and not Sunday. Objective - Vital Signs/Intake and Output Vital Signs (last 24 hours): Temp Pulse Resp BP Pulse Ox 97.8 F 94 H 94 H 115/74 20 L 03/24/17 08:00 03/24/17 08:00 03/24/17 08:00 03/24/17 08:00 03/24/17 08:00 Intake and Output: 03/24/17 03/24/17 06:59 18:59 Intake Total 580 Balance 580 - Medications Medications: Current Medications Alprazolam (Xanax) 0.5 mg PO BID PRN PRN Reason: Anxiety Stop: 03/26/17 08:44 Last Admin: 03/24/17 09:58 Dose: 0.5 mg Budesonide (Pulmicort Respules) 0.5 mg INH RBID [facility] Last Admin: 03/24/17 07:45 Dose: 0.5 mg Docusate Sodium (Colace) 100 mg PO BID [facility] Last Admin: 03/24/17 09:59 Dose: 100 mg Enoxaparin Sodium (Lovenox) 40 mg SC DAILY [facility] Last Admin: 03/23/17 13:54 Dose: 40 mg Ferric Sodium Gluconate Complex (Ferrlecit) 125 mg IVPB Q24H [facility] Stop: 03/28/17 17:01 Last Admin: 03/23/17 17:28 Dose: 125 mg Fluconazole (Diflucan) 100 mg PO DAILY [facility] Last Admin: 03/24/17 10:05 Dose: 100 mg Guaifenesin (Mucinex La) 600 mg PO BID [facility] Last Admin: 03/24/17 09:59 Dose: 600 mg Heparin Sodium (Porcine) (Heparin) 5,000 units SC Q8 [facility] Last Admin: 03/24/17 06:09 Dose: 5,000 units Home Med (Patient's Own Inhalation Solution) 1 ml INH BID [facility] Last Admin: 03/24/17 10:01 Dose: Not Given Insulin Aspart (Novolog) 0 unit SC ACHS [facility] PRN Reason: Protocol Last Admin: 03/24/17 07:30 Dose: Not Given Insulin Glargine (Lantus) 16 unit SC [facility] Last Admin: 03/23/17 21:47 Dose: 16 u Metformin HCl (Glucophage) 1,000 mg PO BID [facility] Last Admin: 03/24/17 09:59 Dose: 1,000 mg Methylprednisolone (Solu-Medrol) 40 mg IVP DAILY [facility] Last Admin: 03/24/17 09:59 Dose: 40 mg Montelukast Sodium (Singulair) 10 mg PO HS [facility] Last Admin: 03/23/17 21:47 Dose: 10 mg Pantoprazole Sodium (Protonix Ec Tab) 40 mg PO DAILY [facility] Last Admin: 03/24/17 09:59 Dose: 40 mg Polyethylene Glycol (Miralax) 17 gm PO DAILY [facility] Last Admin: 03/24/17 10:00 Dose: 17 gm Pregabalin (Lyrica) 50 mg PO BID [facility] Last Admin: 03/24/17 10:00 Dose: 50 mg Roflumilast (Daliresp) 500 mcg PO DAILY [facility] Last Admin: 03/24/17 09:59 Dose: 500 mcg Fluticasone/Salmeterol (Advair Diskus 250/50) 1 puff INH RBID [facility] Last Admin: 03/23/17 09:56 Dose: 1 puff Vitamin B Complex/Vitamin C (Berocca) 1 tab PO DAILY [facility] Last Admin: 03/24/17 09:59 Dose: 1 tab - Labs Labs: 03/24/17 07:08 03/22/17 07:12 PT 11.9 SECONDS (9.7-12.2) 03/22/17 07:12 INR 1.1 03/22/17 07:12 APTT 30 SECONDS (21-34) 03/24/17 07:08 - Constitutional Appears: No Acute Distress - Head Exam Head Exam: NORMOCEPHALIC - Eye Exam Eye Exam: Normal appearance - ENT Exam ENT Exam: Mucous Membranes Moist - Respiratory Exam Respiratory Exam: NORMAL BREATHING PATTERN - Cardiovascular Exam Cardiovascular Exam: +S1, +S2 - GI/Abdominal Exam GI & Abdominal Exam: Soft. absent: Tenderness - Rectal Exam Rectal Exam: NORMAL INSPECTION - Extremities Exam Extremities Exam: absent: Calf Tenderness - Neurological Exam Neurological Exam: Alert, Awake, Oriented x3 - Psychiatric Exam Psychiatric exam: Normal Mood - Skin Skin Exam: Dry, Intact, Warm Assessment and Plan - Assessment and Plan (Free Text) Assessment: 66M presents with endoscopically unresectable rectal-sigmoid polyp as per colonoscopy Colonoscopy: 5 polyps throughout the colon. 3 resected and 2 remaining in the rectal-sigmoid (15mm and 40mm). Path: tubulovillous adenoma - Plan OR Sunday -Dr. Mai to discuss with GI extent of surgery and pulmonary status Discussed with Dr. Emilia Crespo PGY-2
[2017-03-24] MEDS: Ferric Sodium Gluconat Complex 62.5 mg/5 ml Vial IVPB SCH (16:50)
[2017-03-24] MEDS: (Lantus) Insulin Glargine, Recombinant SC SCH (21:25)
--- NOTE | 2017-03-24 22:23 | PN ---
SUBJECTIVE: The patient is mildly short of breath. He denies chest pain. PHYSICAL EXAMINATION VITAL SIGNS: Blood pressure 102/65, heart rate 103, temperature 98.2, respirations 18. HEENT: [place] conjunctivae. CHEST: Bilateral rhonchi. HEART: S1 and S2 regular. EXTREMITIES: Trace leg edema. LABORATORY DATA: Hemoglobin and hematocrit 9 and 29.1. White count and platelet counts are within normal limits. Today's blood sugars are 144, 256 and 262. ASSESSMENT: 1. Advanced chronic obstructive lung disease. 2. Uncontrolled diabetes mellitus. 3. Pulmonary hypertension and mild right-sided failure. 4. Large sigmoid polyp. RECOMMENDATIONS: Continue current bronchodilators, metformin, subcutaneous heparin. Discontinue subcutaneous Lovenox. Continue IV Solu-Medrol. PLAN: The plan is to operative next week. Pulmonary clearance is pending. Mukesh Correia MD
--- NOTE | 2017-03-24 23:45 | CP.PCM.PN ---
Subjective - Date & Time of Evaluation Date of Evaluation: 03/24/17 Time of Evaluation: 11:12 - Subjective Subjective: FEELS BETTER, FOR OR SUNDAY, NO FEVER, NO NAUSEA, NO VOMITING Objective - Vital Signs/Intake and Output Vital Signs (last 24 hours): Temp Pulse Resp BP Pulse Ox 98.2 F 113 H 18 102/65 99 03/24/17 19:29 03/24/17 19:28 03/24/17 16:28 03/24/17 16:28 03/24/17 16:28 Intake and Output: 03/24/17 03/25/17 18:59 06:59 Intake Total 580 Balance 580 - Medications Medications: Current Medications Alprazolam (Xanax) 0.5 mg PO BID PRN PRN Reason: Anxiety Stop: 03/26/17 08:44 Last Admin: 03/24/17 22:26 Dose: 0.5 mg Budesonide (Pulmicort Respules) 0.5 mg INH RBID [facility] Last Admin: 03/24/17 19:36 Dose: 0.5 mg Docusate Sodium (Colace) 100 mg PO BID [facility] Last Admin: 03/24/17 17:28 Dose: 100 mg Enoxaparin Sodium (Lovenox) 40 mg SC DAILY [facility] Last Admin: 03/23/17 13:54 Dose: 40 mg Ferric Sodium Gluconate Complex (Ferrlecit) 125 mg IVPB Q24H [facility] Stop: 03/28/17 17:01 Last Admin: 03/24/17 16:50 Dose: 125 mg Fluconazole (Diflucan) 100 mg PO DAILY [facility] Last Admin: 03/24/17 10:05 Dose: 100 mg Guaifenesin (Mucinex La) 600 mg PO BID [facility] Last Admin: 03/24/17 17:28 Dose: 600 mg Heparin Sodium (Porcine) (Heparin) 5,000 units SC Q8 [facility] Last Admin: 03/24/17 21:26 Dose: 5,000 units Home Med (Patient's Own Inhalation Solution) 1 ml INH BID [facility] Last Admin: 03/24/17 10:01 Dose: Not Given Insulin Aspart (Novolog) 0 unit SC ACHS [facility] PRN Reason: Protocol Last Admin: 03/24/17 21:01 Dose: Not Given Insulin Glargine (Lantus) 16 unit SC HS [facility] Last Admin: 03/24/17 21:25 Dose: 16 u Metformin HCl (Glucophage) 1,000 mg PO BID [facility] Last Admin: 03/24/17 17:28 Dose: 1,000 mg Methylprednisolone (Solu-Medrol) 40 mg IVP DAILY [facility] Last Admin: 03/24/17 09:59 Dose: 40 mg Montelukast Sodium (Singulair) 10 mg PO HS [facility] Last Admin: 03/24/17 21:25 Dose: 10 mg Pantoprazole Sodium (Protonix Ec Tab) 40 mg PO DAILY [facility] Last Admin: 03/24/17 09:59 Dose: 40 mg Polyethylene Glycol (Miralax) 17 gm PO DAILY [facility] Last Admin: 03/24/17 10:00 Dose: 17 gm Pregabalin (Lyrica) 50 mg PO BID [facility] Last Admin: 03/24/17 17:28 Dose: 50 mg Roflumilast (Daliresp) 500 mcg PO DAILY [facility] Last Admin: 03/24/17 09:59 Dose: 500 mcg Fluticasone/Salmeterol (Advair Diskus 250/50) 1 puff INH RBID [facility] Last Admin: 03/24/17 19:37 Dose: 1 puff Vitamin B Complex/Vitamin C (Berocca) 1 tab PO DAILY [facility] Last Admin: 03/24/17 09:59 Dose: 1 tab - Labs Labs: 03/24/17 07:08 03/22/17 07:12 PT 11.9 SECONDS (9.7-12.2) 03/22/17 07:12 INR 1.1 03/22/17 07:12 APTT 30 SECONDS (21-34) 03/24/17 07:08 - Constitutional Appears: Non-toxic, No Acute Distress, Chronically Ill - Head Exam Head Exam: NORMAL INSPECTION, NORMOCEPHALIC - Eye Exam Eye Exam: EOMI, Normal appearance, PERRL Pupil Exam: NORMAL ACCOMODATION - ENT Exam ENT Exam: Mucous Membranes Moist, Normal Exam, Normal Oropharynx, TM's Normal Bilaterally - Neck Exam Neck Exam: Normal Inspection - Respiratory Exam Respiratory Exam: Prolonged Expiratory Phase, Rhonchi - Cardiovascular Exam Cardiovascular Exam: Tachycardia, REGULAR RHYTHM, +S1, +S2 - GI/Abdominal Exam GI & Abdominal Exam: Soft, Normal Bowel Sounds - Rectal Exam Rectal Exam: NORMAL INSPECTION - Extremities Exam Extremities Exam: Full ROM, Normal Capillary Refill, Normal Inspection, Pedal Edema - Neurological Exam Neurological Exam: Alert, Awake, CN II-XII Intact, Normal Gait, Oriented x3 Neuro motor strength exam: Left Upper Extremity: 5, Right Upper Extremity: 5, Left Lower Extremity: 5, Right Lower Extremity: 5 - Psychiatric Exam Psychiatric exam: Anxious - Skin Skin Exam: Intact Assessment and Plan (1) Anemia Status: Acute (2) COPD (chronic obstructive pulmonary disease) with emphysema Status: Acute (3) Allergic rhinitis Status: Chronic (4) Diabetes Status: Chronic
[2017-03-25] MEDS: (Novolog) Insulin Aspart, Recombinant 100 u/ml 10 ml vial SC SCH ×4 (07:30→21:44)
[2017-03-25] MEDS: BROVANA 15 MCG/2 ML INH SCH ×2 (08:00→09:26)
[2017-03-25] MEDS: Fluticasone-Salmeterol 250-50mcg Diskus INH SCH ×2 (08:08→19:56)
[2017-03-25] MEDS: Budesonide 0.5 mg/2 ml Inhal Susp UD INH SCH (08:09)
--- NOTE | 2017-03-25 09:20 | CP.PCM.PN ---
Subjective - Date & Time of Evaluation Date of Evaluation: 03/25/17 Time of Evaluation: 06:45 - Subjective Subjective: Patient seen and examined resting comfortably at bedside. Complains of some hoarseness in voice. Denies abdominal pain. +flatus, +BM. Plan for OR Sunday. Objective - Vital Signs/Intake and Output Vital Signs (last 24 hours): Temp Pulse Resp BP Pulse Ox 97 F L 90 20 106/62 98 03/25/17 08:30 03/25/17 08:30 03/25/17 08:30 03/25/17 08:30 03/25/17 08:30 - Medications Medications: Current Medications Alprazolam (Xanax) 0.5 mg PO BID PRN PRN Reason: Anxiety Stop: 03/26/17 08:44 Last Admin: 03/24/17 22:26 Dose: 0.5 mg Budesonide (Pulmicort Respules) 0.5 mg INH RBID [facility] Last Admin: 03/25/17 08:09 Dose: 0.5 mg Docusate Sodium (Colace) 100 mg PO BID [facility] Last Admin: 03/24/17 17:28 Dose: 100 mg Enoxaparin Sodium (Lovenox) 40 mg SC DAILY [facility] Last Admin: 03/23/17 13:54 Dose: 40 mg Ferric Sodium Gluconate Complex (Ferrlecit) 125 mg IVPB Q24H [facility] Stop: 03/28/17 17:01 Last Admin: 03/24/17 16:50 Dose: 125 mg Fluconazole (Diflucan) 100 mg PO DAILY [facility] Last Admin: 03/24/17 10:05 Dose: 100 mg Guaifenesin (Mucinex La) 600 mg PO BID [facility] Last Admin: 03/24/17 17:28 Dose: 600 mg Heparin Sodium (Porcine) (Heparin) 5,000 units SC Q8 [facility] Last Admin: 03/25/17 06:33 Dose: 5,000 units Home Med (Patient's Own Inhalation Solution) 1 ml INH BID [facility] Last Admin: 03/24/17 10:01 Dose: Not Given Insulin Aspart (Novolog) 0 unit SC ACHS [facility] PRN Reason: Protocol Last Admin: 03/24/17 21:01 Dose: Not Given Insulin Glargine (Lantus) 16 unit SC HS [facility] Last Admin: 03/24/17 21:25 Dose: 16 u Metformin HCl (Glucophage) 1,000 mg PO BID [facility] Last Admin: 03/24/17 17:28 Dose: 1,000 mg Methylprednisolone (Solu-Medrol) 40 mg IVP DAILY [facility] Last Admin: 03/24/17 09:59 Dose: 40 mg Montelukast Sodium (Singulair) 10 mg PO HS [facility] Last Admin: 03/24/17 21:25 Dose: 10 mg Pantoprazole Sodium (Protonix Ec Tab) 40 mg PO DAILY [facility] Last Admin: 03/24/17 09:59 Dose: 40 mg Polyethylene Glycol (Miralax) 17 gm PO DAILY [facility] Last Admin: 03/24/17 10:00 Dose: 17 gm Pregabalin (Lyrica) 50 mg PO BID [facility] Last Admin: 03/24/17 17:28 Dose: 50 mg Roflumilast (Daliresp) 500 mcg PO DAILY [facility] Last Admin: 03/24/17 09:59 Dose: 500 mcg Fluticasone/Salmeterol (Advair Diskus 250/50) 1 puff INH RBID [facility] Last Admin: 03/25/17 08:08 Dose: 1 puff Vitamin B Complex/Vitamin C (Berocca) 1 tab PO DAILY [facility] Last Admin: 03/24/17 09:59 Dose: 1 tab - Labs Labs: 03/24/17 07:08 03/22/17 07:12 PT 11.9 SECONDS (9.7-12.2) 03/22/17 07:12 INR 1.1 03/22/17 07:12 APTT 30 SECONDS (21-34) 03/24/17 07:08 - Constitutional Appears: No Acute Distress - Head Exam Head Exam: NORMOCEPHALIC - Eye Exam Eye Exam: Normal appearance - Respiratory Exam Respiratory Exam: NORMAL BREATHING PATTERN - Cardiovascular Exam Cardiovascular Exam: +S1, +S2 - GI/Abdominal Exam GI & Abdominal Exam: Soft, Hernia - Neurological Exam Neurological Exam: Alert, Awake, Oriented x3 - Psychiatric Exam Psychiatric exam: Normal Mood - Skin Skin Exam: Dry, Warm Assessment and Plan - Assessment and Plan (Free Text) Assessment: 66M presents with endoscopically unresectable rectal-sigmoid polyp as per colonoscopy Colonoscopy: 5 polyps throughout the colon. 3 resected and 2 remaining in the rectal-sigmoid (15mm and 40mm). Path: tubulovillous adenoma - Plan OR Shavonne -Dr. Mai to discuss with GI extent of surgery and pulmonary status Discussed with Dr. Emilia Crespo PGY-2
[2017-03-25] MEDS: POLYETHYLENE GLYCOL 3350 17 GM/Dose PACKET PO SCH (09:25)
[2017-03-25] MEDS: Pantoprazole 40 mg EC Tab PO SCH (09:25)
[2017-03-25] MEDS: Vitamin B Complex/Vitamin C Tab PO SCH (09:25)
[2017-03-25] MEDS: MethylPREDNISolone 40 mg Vial IVP SCH (09:25)
[2017-03-25] MEDS: guaiFENesin 600 mg ER Tab PO SCH ×2 (09:25→17:41)
[2017-03-25] MEDS: Albuterol-Ipratrop 3 mg / 0.5 (3 ml) UD INH SCH ×2 (13:52→19:55)
[2017-03-25] MEDS: Ferric Sodium Gluconat Complex 62.5 mg/5 ml Vial IVPB SCH (16:39)
--- NOTE | 2017-03-25 17:49 | PN ---
SUBJECTIVE: The patient is mildly short of breath on nasal O2. He denies any chest pain. PHYSICAL EXAMINATION VITAL SIGNS: Blood pressure 106/62, heart rate 90, temperature 97, respirations 20. HEENT: Normocephalic. CHEST: Diminished breath sound bilaterally and bilateral rhonchi. HEART: S1 and S2 regular. EXTREMITIES: Trace leg edema. LABORATORY DATA: Today's blood sugars are 175 and 156. ASSESSMENT: 1. Chronic obstructive lung disease. 2. Secondary pulmonary hypertension. 3. Large sigmoid polyp. RECOMMENDATIONS: Continue current bronchodilators, continue oral Diflucan, metformin, subcutaneous heparin, Mucinex, IV Solu-Medrol. The patient is awaiting pulmonary clearance. Mukesh Correia MD
[2017-03-25] MEDS: (Lantus) Insulin Glargine, Recombinant SC SCH (22:00)
--- NOTE | 2017-03-25 22:35 | CP.PCM.PN ---
Subjective - Date & Time of Evaluation Date of Evaluation: 03/25/17 Time of Evaluation: 11:17 - Subjective Subjective: CASE D/W DR REDDY AND DR MANZANO , FOR OR, LESS SOB, LESS COUGH, NO FEVER, NO CHEST PAIN Objective - Vital Signs/Intake and Output Vital Signs (last 24 hours): Temp Pulse Resp BP Pulse Ox 98 F 113 H 18 115/63 98 03/25/17 21:19 03/25/17 21:19 03/25/17 21:19 03/25/17 21:19 03/25/17 15:34 Intake and Output: 03/25/17 03/26/17 18:59 06:59 Intake Total 580 Balance 580 - Medications Medications: Current Medications Albuterol/Ipratropium (Duoneb 3 Mg/0.5 Mg (3 Ml) Ud) 3 ml INH RQ6 [facility] Last Admin: 03/25/17 19:55 Dose: 3 ml Alprazolam (Xanax) 0.5 mg PO BID PRN PRN Reason: Anxiety Stop: 03/26/17 08:44 Last Admin: 03/25/17 21:58 Dose: 0.5 mg Budesonide (Pulmicort Respules) 0.5 mg INH RBID [facility] Last Admin: 03/25/17 08:09 Dose: 0.5 mg Docusate Sodium (Colace) 100 mg PO BID [facility] Last Admin: 03/25/17 17:41 Dose: 100 mg Enoxaparin Sodium (Lovenox) 40 mg SC DAILY [facility] Last Admin: 03/23/17 13:54 Dose: 40 mg Ferric Sodium Gluconate Complex (Ferrlecit) 125 mg IVPB Q24H [facility] Stop: 03/28/17 17:01 Last Admin: 03/25/17 16:39 Dose: 125 mg Fluconazole (Diflucan) 100 mg PO DAILY [facility] Last Admin: 03/25/17 12:29 Dose: 100 mg Guaifenesin (Mucinex La) 600 mg PO BID [facility] Last Admin: 03/25/17 17:41 Dose: 600 mg Heparin Sodium (Porcine) (Heparin) 5,000 units SC Q8 [facility] Last Admin: 03/25/17 21:58 Dose: 5,000 units Home Med (Patient's Own Inhalation Solution) 1 ml INH RBID [facility] Insulin Aspart (Novolog) 0 unit SC ACHS [facility] PRN Reason: Protocol Last Admin: 03/25/17 21:44 Dose: Not Given Insulin Glargine (Lantus) 16 unit SC HS [facility] Last Admin: 03/25/17 22:00 Dose: 18 u Metformin HCl (Glucophage) 1,000 mg PO BID [facility] Last Admin: 03/25/17 17:41 Dose: 1,000 mg Methylprednisolone (Solu-Medrol) 40 mg IVP DAILY [facility] Last Admin: 03/25/17 09:25 Dose: 40 mg Montelukast Sodium (Singulair) 10 mg PO HS [facility] Last Admin: 03/25/17 21:58 Dose: 10 mg Pantoprazole Sodium (Protonix Ec Tab) 40 mg PO DAILY [facility] Last Admin: 03/25/17 09:25 Dose: 40 mg Polyethylene Glycol (Miralax) 17 gm PO DAILY [facility] Last Admin: 03/25/17 09:25 Dose: 17 gm Pregabalin (Lyrica) 50 mg PO BID [facility] Last Admin: 03/25/17 17:41 Dose: 50 mg Roflumilast (Daliresp) 500 mcg PO DAILY [facility] Last Admin: 03/25/17 12:29 Dose: 500 mcg Fluticasone/Salmeterol (Advair Diskus 250/50) 1 puff INH RBID [facility] Last Admin: 03/25/17 19:56 Dose: 1 puff Vitamin B Complex/Vitamin C (Berocca) 1 tab PO DAILY [facility] Last Admin: 03/25/17 09:25 Dose: 1 tab - Labs Labs: 03/24/17 07:08 03/22/17 07:12 PT 11.9 SECONDS (9.7-12.2) 03/22/17 07:12 INR 1.1 03/22/17 07:12 APTT 30 SECONDS (21-34) 03/24/17 07:08 - Constitutional Appears: Non-toxic, No Acute Distress, Chronically Ill - Head Exam Head Exam: ATRAUMATIC, NORMAL INSPECTION, NORMOCEPHALIC - Eye Exam Eye Exam: EOMI, Normal appearance, PERRL Pupil Exam: NORMAL ACCOMODATION - ENT Exam ENT Exam: Mucous Membranes Moist, Normal Exam, Normal Oropharynx, TM's Normal Bilaterally - Neck Exam Neck Exam: Normal Inspection - Cardiovascular Exam Cardiovascular Exam: REGULAR RHYTHM - GI/Abdominal Exam GI & Abdominal Exam: Soft, Normal Bowel Sounds - Rectal Exam Rectal Exam: NORMAL INSPECTION - Extremities Exam Extremities Exam: Normal Capillary Refill, Normal Inspection - Neurological Exam Neurological Exam: Alert, Awake, CN II-XII Intact, Normal Gait, Oriented x3 Neuro motor strength exam: Left Upper Extremity: 5, Right Upper Extremity: 5, Left Lower Extremity: 5, Right Lower Extremity: 5 Assessment and Plan (1) Anemia Assessment & Plan: FOR OR, COLON LESION NEEDS RESECTION Status: Acute (2) COPD (chronic obstructive pulmonary disease) with emphysema Status: Acute (3) Allergic rhinitis Status: Chronic (4) Diabetes Status: Chronic
[2017-03-26] MEDS: Albuterol-Ipratrop 3 mg / 0.5 (3 ml) UD INH SCH ×4 (01:30→20:34)
[2017-03-26] MEDS: (Novolog) Insulin Aspart, Recombinant 100 u/ml 10 ml vial SC SCH ×4 (07:30→21:56)
[2017-03-26] MEDS: Budesonide 0.5 mg/2 ml Inhal Susp UD INH SCH ×2 (07:58→20:35)
[2017-03-26] MEDS: Fluticasone-Salmeterol 250-50mcg Diskus INH SCH ×2 (07:58→20:34)
[2017-03-26] MEDS ORDERED: Peg-Electrolyte Oral Soln 4L (Golytely) PO ONE (08:04)
[2017-03-26 08:48] LABS: CHLORIDE 98 mmol/L (98-107); POTASSIUM 3.5 mmol/L (3.6-5.2); SODIUM 139 mmol/L (132-148)
[2017-03-26 08:50] LABS: GFR AFRICAN-AMERICAN > 60
[2017-03-26 08:51] LABS: BLOOD UREA NITROGEN 7 mg/dL (9-20); CARBON DIOXIDE 31 mmol/L (22-30); GLUCOSE,RANDOM 120 mg/dL (75-110)
[2017-03-26 08:52] LABS: BASO # 0.1 K/uL (0.0-0.2); BASO % 0.6 % (0.0-2.0); EOS # 0.2 K/uL (0.0-0.7); HEMATOCRIT 28.7 % (35.0-51.0); LYMPH # 2.8 K/uL (1.0-4.3); LYMPH % 29.1 % (20.0-40.0); MEAN CELL VOLUME 64.3 fL (80.0-94.0); MEAN CORPUSCULAR HEMOGLOBIN 19.6 pg (27.0-31.0); MEAN CORPUSCULAR HGB CONC 30.5 g/dL (33.0-37.0); MEAN PLATELET VOLUME 8.6 fL (7.2-11.7); MONO # 0.8 K/uL (0.0-0.8); MONO % 7.9 % (0.0-10.0); RED CELL DISTRIBUTION WIDTH 26.3 % (11.5-14.5); WHITE BLOOD COUNT 9.8 K/uL (4.8-10.8)
[2017-03-26] MEDS: Pantoprazole 40 mg EC Tab PO SCH (09:25)
[2017-03-26] MEDS: Vitamin B Complex/Vitamin C Tab PO SCH (09:25)
[2017-03-26] MEDS: guaiFENesin 600 mg ER Tab PO SCH ×2 (09:25→17:45)
[2017-03-26] MEDS: MethylPREDNISolone 40 mg Vial IVP SCH (09:26)
--- NOTE | 2017-03-26 10:17 | CP.PCM.PN ---
Subjective - Date & Time of Evaluation Date of Evaluation: 03/26/17 Time of Evaluation: 06:50 - Subjective Subjective: General surgery- Dr. Nieto Pt S&E at bedside this AM. Resting comfortably. Denies current abdominal pain. + Flatus +BM +OOB. Denies F/C CP. Some SOB 2/2 COPD exacerbation Objective - Vital Signs/Intake and Output Vital Signs (last 24 hours): Temp Pulse Resp BP Pulse Ox 97.6 F 93 H 20 115/71 100 03/26/17 08:28 03/26/17 08:28 03/26/17 08:28 03/26/17 08:28 03/26/17 08:28 - Medications Medications: Current Medications Albuterol/Ipratropium (Duoneb 3 Mg/0.5 Mg (3 Ml) Ud) 3 ml INH RQ6 [facility] Last Admin: 03/26/17 07:58 Dose: 3 ml Alprazolam (Xanax) 0.5 mg PO BID PRN PRN Reason: Anxiety Budesonide (Pulmicort Respules) 0.5 mg INH RBID [facility] Last Admin: 03/26/17 07:58 Dose: 0.5 mg Docusate Sodium (Colace) 100 mg PO BID [facility] Last Admin: 03/26/17 09:25 Dose: 100 mg Enoxaparin Sodium (Lovenox) 40 mg SC DAILY [facility] Last Admin: 03/23/17 13:54 Dose: 40 mg Erythromycin (Erythromycin) 1,000 mg PO Q1H [facility] Stop: 03/26/17 15:01 Erythromycin (Erythromycin) 1,000 mg PO ONCE ONE Stop: 03/26/17 22:01 Ferric Sodium Gluconate Complex (Ferrlecit) 125 mg IVPB Q24H [facility] Stop: 03/28/17 17:01 Last Admin: 03/25/17 16:39 Dose: 125 mg Fluconazole (Diflucan) 100 mg PO DAILY [facility] Last Admin: 03/26/17 09:25 Dose: 100 mg Guaifenesin (Mucinex La) 600 mg PO BID [facility] Last Admin: 03/26/17 09:25 Dose: 600 mg Heparin Sodium (Porcine) (Heparin) 5,000 units SC Q8 [facility] Last Admin: 03/26/17 05:47 Dose: 5,000 units Home Med (Patient's Own Inhalation Solution) 1 ml INH RBID [facility] Insulin Aspart (Novolog) 0 unit SC [facility] PRN Reason: Protocol Last Admin: 03/25/17 21:44 Dose: Not Given Insulin Glargine (Lantus) 16 unit SC [facility] Last Admin: 03/25/17 22:00 Dose: 18 u Metformin HCl (Glucophage) 1,000 mg PO BID [facility] Last Admin: 03/26/17 09:26 Dose: 1,000 mg Methylprednisolone (Solu-Medrol) 40 mg IVP DAILY [facility] Last Admin: 03/26/17 09:26 Dose: 40 mg Montelukast Sodium (Singulair) 10 mg PO HS [facility] Last Admin: 03/25/17 21:58 Dose: 10 mg Neomycin Sulfate (Neomycin Tab) 1,000 mg PO Q1H [facility] Stop: 03/26/17 15:01 Neomycin Sulfate (Neomycin Tab) 1,000 mg PO ONCE ONE Stop: 03/26/17 22:01 Pantoprazole Sodium (Protonix Ec Tab) 40 mg PO DAILY [facility] Last Admin: 03/26/17 09:25 Dose: 40 mg Polyethylene Glycol (Miralax) 17 gm PO DAILY [facility] Last Admin: 03/25/17 09:25 Dose: 17 gm Pregabalin (Lyrica) 50 mg PO BID [facility] Last Admin: 03/26/17 09:25 Dose: 50 mg Roflumilast (Daliresp) 500 mcg PO DAILY [facility] Last Admin: 03/26/17 09:26 Dose: 500 mcg Fluticasone/Salmeterol (Advair Diskus 250/50) 1 puff INH RBID [facility] Last Admin: 03/26/17 07:58 Dose: 1 puff Vitamin B Complex/Vitamin C (Berocca) 1 tab PO DAILY [facility] Last Admin: 03/26/17 09:25 Dose: 1 tab - Labs Labs: 03/26/17 08:36 03/26/17 08:36 PT 11.9 SECONDS (9.7-12.2) 03/22/17 07:12 INR 1.1 03/22/17 07:12 APTT 30 SECONDS (21-34) 03/24/17 07:08 - Constitutional Appears: No Acute Distress - Head Exam Head Exam: ATRAUMATIC - Eye Exam Eye Exam: EOMI - ENT Exam ENT Exam: Mucous Membranes Moist - Respiratory Exam Respiratory Exam: Wheezes. absent: Accessory Muscle Use, Rhonchi - Cardiovascular Exam Cardiovascular Exam: +S1, +S2 - GI/Abdominal Exam GI & Abdominal Exam: Soft. absent: Distended, Tenderness - Neurological Exam Neurological Exam: Alert, Awake, Oriented x3 - Psychiatric Exam Psychiatric exam: Normal Affect - Skin Skin Exam: Normal Color Assessment and Plan - Assessment and Plan (Free Text) Assessment: 66M presents with endoscopically unresectable rectal-sigmoid polyp as per colonoscopy Colonoscopy: 5 polyps throughout the colon. 3 resected and 2 remaining in the rectal-sigmoid (15mm and 40mm). Path: tubulovillous adenoma Plan: - Bowel Prep today - Clears only today. NPO after Midnight - Plan for OR tomorrow - Further Recs per Dr. Emilia Gatica PGY1
--- NOTE | 2017-03-26 11:57 | CP.PCM.PN ---
Subjective - Date & Time of Evaluation Date of Evaluation: 03/26/17 Time of Evaluation: 08:30 - Subjective Subjective: patient seen and examined. Sitting comfortably in no acute distress Breathing and cough much improved Afebrile For surgery tomorrow Objective - Vital Signs/Intake and Output Vital Signs (last 24 hours): Temp Pulse Resp BP Pulse Ox 97.6 F 93 H 20 115/71 100 03/26/17 08:28 03/26/17 08:28 03/26/17 08:28 03/26/17 08:28 03/26/17 08:28 - Medications Medications: Current Medications Albuterol/Ipratropium (Duoneb 3 Mg/0.5 Mg (3 Ml) Ud) 3 ml INH RQ6 [facility] Last Admin: 03/26/17 07:58 Dose: 3 ml Alprazolam (Xanax) 0.5 mg PO BID PRN PRN Reason: Anxiety Last Admin: 03/26/17 10:17 Dose: 0.5 mg Budesonide (Pulmicort Respules) 0.5 mg INH RBID [facility] Last Admin: 03/26/17 07:58 Dose: 0.5 mg Docusate Sodium (Colace) 100 mg PO BID [facility] Last Admin: 03/26/17 09:25 Dose: 100 mg Enoxaparin Sodium (Lovenox) 40 mg SC DAILY [facility] Last Admin: 03/23/17 13:54 Dose: 40 mg Erythromycin (Erythromycin) 1,000 mg PO Q1H [facility] Stop: 03/26/17 15:01 Erythromycin (Erythromycin) 1,000 mg PO ONCE ONE Stop: 03/26/17 22:01 Ferric Sodium Gluconate Complex (Ferrlecit) 125 mg IVPB Q24H [facility] Stop: 03/28/17 17:01 Last Admin: 03/25/17 16:39 Dose: 125 mg Fluconazole (Diflucan) 100 mg PO DAILY [facility] Last Admin: 03/26/17 09:25 Dose: 100 mg Guaifenesin (Mucinex La) 600 mg PO BID [facility] Last Admin: 03/26/17 09:25 Dose: 600 mg Heparin Sodium (Porcine) (Heparin) 5,000 units SC Q8 [facility] Stop: 03/27/17 03:00 Home Med (Patient's Own Inhalation Solution) 1 ml INH RBID [facility] Insulin Aspart (Novolog) 0 unit SC ACHS [facility] PRN Reason: Protocol Last Admin: 03/26/17 07:30 Dose: Not Given Insulin Glargine (Lantus) 16 unit SC HS [facility] Last Admin: 03/25/17 22:00 Dose: 18 u Metformin HCl (Glucophage) 1,000 mg PO BID [facility] Last Admin: 03/26/17 09:26 Dose: 1,000 mg Methylprednisolone (Solu-Medrol) 40 mg IVP DAILY [facility] Last Admin: 03/26/17 09:26 Dose: 40 mg Montelukast Sodium (Singulair) 10 mg PO HS [facility] Last Admin: 03/25/17 21:58 Dose: 10 mg Neomycin Sulfate (Neomycin Tab) 1,000 mg PO Q1H [facility] Stop: 03/26/17 15:01 Neomycin Sulfate (Neomycin Tab) 1,000 mg PO ONCE ONE Stop: 03/26/17 22:01 Pantoprazole Sodium (Protonix Ec Tab) 40 mg PO DAILY [facility] Last Admin: 03/26/17 09:25 Dose: 40 mg Polyethylene Glycol (Miralax) 17 gm PO DAILY [facility] Last Admin: 03/25/17 09:25 Dose: 17 gm Pregabalin (Lyrica) 50 mg PO BID [facility] Last Admin: 03/26/17 09:25 Dose: 50 mg Roflumilast (Daliresp) 500 mcg PO DAILY [facility] Last Admin: 03/26/17 09:26 Dose: 500 mcg Fluticasone/Salmeterol (Advair Diskus 250/50) 1 puff INH RBID [facility] Last Admin: 03/26/17 07:58 Dose: 1 puff Vitamin B Complex/Vitamin C (Berocca) 1 tab PO DAILY [facility] Last Admin: 03/26/17 09:25 Dose: 1 tab - Labs Labs: 03/26/17 08:36 03/26/17 08:36 PT 11.9 SECONDS (9.7-12.2) 03/22/17 07:12 INR 1.1 03/22/17 07:12 APTT 30 SECONDS (21-34) 03/24/17 07:08 - Head Exam Head Exam: ATRAUMATIC, NORMOCEPHALIC - Eye Exam Eye Exam: Normal appearance - ENT Exam ENT Exam: Mucous Membranes Moist - Neck Exam Neck Exam: Normal Inspection - Respiratory Exam Respiratory Exam: Decreased Breath Sounds - Cardiovascular Exam Cardiovascular Exam: REGULAR RHYTHM Assessment and Plan (1) COPD (chronic obstructive pulmonary disease) with emphysema Assessment & Plan: continue nebulizer treatment and steroids Patient is high risk for surgery from pulmonary stand point Followup ABG Status: Acute (2) Acute respiratory distress Status: Acute
[2017-03-26] MEDS ORDERED: Potassium Chloride 20 mEq ER Tab PO ONE (13:00)
[2017-03-26] MEDS: BROVANA 15 MCG/2 ML INH SCH (13:05)
--- NOTE | 2017-03-26 14:04 | PN ---
SUBJECTIVE: She denies any chest pain. He is currently on BiPAP. PHYSICAL EXAMINATION VITAL SIGNS: Blood pressure 115/71, heart rate 93, temperature 97.6, respirations 20. HEENT: Pale conjunctivae. CHEST: Bilateral rhonchi. HEART: S1 and S2 regular. EXTREMITIES: No edema. LABORATORY DATA: Hemoglobin and hematocrit 8.7 and 28.7. White count and platelet counts are within normal limits. Today's potassium is 3.5, BUN and creatinine are 7 and 0.6, glucose is 120. ASSESSMENT: 1. Chronic obstructive pulmonary disease. 2. Secondary pulmonary hypertension. 3. Improved right-sided failure. 4. Sigmoid polyps. 5. Anemia. 6. Hypokalemia. RECOMMENDATIONS: Continue current Solu-Medrol 40 mg twice daily, Singulair 10 p.o. once a day, neomycin 1 gm orally once a day, Mucinex LA 600 mg twice a day, Lovenox 40 mg subcutaneous once a day. I will order K-Dur 20 mEq to be given orally now. The patient can undergo colon resection from the cardiac point of view with postoperative ICU monitoring. Mukesh Correia MD
[2017-03-26] MEDS: Ferric Sodium Gluconat Complex 62.5 mg/5 ml Vial IVPB SCH (16:43)
[2017-03-26] MEDS ORDERED: (Lantus) Insulin Glargine, Recombinant SC ONE (22:00)
[2017-03-26] MEDS: (Lantus) Insulin Glargine, Recombinant SC SCH (22:06)
--- NOTE | 2017-03-26 23:04 | CP.PCM.PN ---
Subjective - Date & Time of Evaluation Date of Evaluation: 03/26/17 Time of Evaluation: 11:24 - Subjective Subjective: OR IN AM, HIGH RISK, EXPLAINED EVERYTHING, NO SOB, AND IS STABLE Objective - Vital Signs/Intake and Output Vital Signs (last 24 hours): Temp Pulse Resp BP Pulse Ox 95 F L 105 H 21 106/72 99 03/26/17 20:18 03/26/17 20:18 03/26/17 15:57 03/26/17 20:18 03/26/17 15:57 Intake and Output: 03/26/17 03/27/17 18:59 06:59 Intake Total 1100 Balance 1100 - Medications Medications: Current Medications Albuterol/Ipratropium (Duoneb 3 Mg/0.5 Mg (3 Ml) Ud) 3 ml INH RQ6 [facility] Last Admin: 03/26/17 20:34 Dose: 3 ml Alprazolam (Xanax) 0.5 mg PO BID PRN PRN Reason: Anxiety Last Admin: 03/26/17 22:06 Dose: 0.5 mg Budesonide (Pulmicort Respules) 0.5 mg INH RBID [facility] Last Admin: 03/26/17 20:35 Dose: 0.5 mg Docusate Sodium (Colace) 100 mg PO BID [facility] Last Admin: 03/26/17 17:45 Dose: 100 mg Enoxaparin Sodium (Lovenox) 40 mg SC DAILY [facility] Last Admin: 03/23/17 13:54 Dose: 40 mg Ferric Sodium Gluconate Complex (Ferrlecit) 125 mg IVPB Q24H [facility] Stop: 03/28/17 17:01 Last Admin: 03/26/17 16:43 Dose: 125 mg Fluconazole (Diflucan) 100 mg PO DAILY [facility] Last Admin: 03/26/17 09:25 Dose: 100 mg Guaifenesin (Mucinex La) 600 mg PO BID [facility] Last Admin: 03/26/17 17:45 Dose: 600 mg Heparin Sodium (Porcine) (Heparin) 5,000 units SC Q8 [facility] Stop: 03/27/17 03:00 Last Admin: 03/26/17 13:05 Dose: 5,000 units Home Med (Patient's Own Inhalation Solution) 1 ml INH RBID [facility] Last Admin: 03/26/17 13:05 Dose: Not Given Insulin Aspart (Novolog) 0 unit SC ACHS [facility] PRN Reason: Protocol Last Admin: 03/26/17 21:56 Dose: Not Given Insulin Glargine (Lantus) 16 unit SC [facility] Last Admin: 03/26/17 22:06 Dose: Not Given Metformin HCl (Glucophage) 1,000 mg PO BID [facility] Last Admin: 03/26/17 17:45 Dose: 1,000 mg Methylprednisolone (Solu-Medrol) 40 mg IVP DAILY [facility] Last Admin: 03/26/17 09:26 Dose: 40 mg Montelukast Sodium (Singulair) 10 mg PO HS [facility] Last Admin: 03/26/17 22:06 Dose: 10 mg Pantoprazole Sodium (Protonix Ec Tab) 40 mg PO DAILY [facility] Last Admin: 03/26/17 09:25 Dose: 40 mg Polyethylene Glycol (Miralax) 17 gm PO DAILY [facility] Last Admin: 03/25/17 09:25 Dose: 17 gm Pregabalin (Lyrica) 50 mg PO BID [facility] Last Admin: 03/26/17 17:45 Dose: 50 mg Roflumilast (Daliresp) 500 mcg PO DAILY [facility] Last Admin: 03/26/17 09:26 Dose: 500 mcg Fluticasone/Salmeterol (Advair Diskus 250/50) 1 puff INH RBID [facility] Last Admin: 03/26/17 20:34 Dose: Not Given Vitamin B Complex/Vitamin C (Berocca) 1 tab PO DAILY [facility] Last Admin: 03/26/17 09:25 Dose: 1 tab - Labs Labs: 03/26/17 08:36 03/26/17 08:36 PT 11.9 SECONDS (9.7-12.2) 03/22/17 07:12 INR 1.1 03/22/17 07:12 APTT 30 SECONDS (21-34) 03/24/17 07:08 - Constitutional Appears: Non-toxic, No Acute Distress, Chronically Ill - Head Exam Head Exam: ATRAUMATIC, NORMAL INSPECTION, NORMOCEPHALIC - Eye Exam Eye Exam: EOMI, Normal appearance, PERRL Pupil Exam: NORMAL ACCOMODATION - ENT Exam ENT Exam: Mucous Membranes Moist, Normal Exam - Neck Exam Neck Exam: Normal Inspection - Respiratory Exam Respiratory Exam: Prolonged Expiratory Phase, Rhonchi, NORMAL BREATHING PATTERN - Cardiovascular Exam Cardiovascular Exam: Tachycardia, REGULAR RHYTHM, +S1, +S2 - GI/Abdominal Exam GI & Abdominal Exam: Soft, Normal Bowel Sounds - Rectal Exam Rectal Exam: NORMAL INSPECTION - Neurological Exam Neurological Exam: Alert, Awake, CN II-XII Intact, Normal Gait, Oriented x3 Neuro motor strength exam: Left Upper Extremity: 5, Right Upper Extremity: 5, Left Lower Extremity: 5, Right Lower Extremity: 5 - Psychiatric Exam Psychiatric exam: Flat Affect - Skin Skin Exam: Intact Assessment and Plan (1) Anemia Assessment & Plan: FOR OR, HAS COLON LESION Status: Acute (2) COPD (chronic obstructive pulmonary disease) with emphysema Status: Acute (3) Allergic rhinitis Status: Chronic (4) Diabetes Status: Chronic
[2017-03-27] MEDS: Albuterol-Ipratrop 3 mg / 0.5 (3 ml) UD INH SCH ×4 (02:36→19:25)
[2017-03-27 07:10] LABS: BASO % 0.4 % (0.0-2.0); EOS # 0.1 K/uL (0.0-0.7); EOS % 0.9 % (0.0-4.0); HEMATOCRIT 29.8 % (35.0-51.0); LYMPH # 1.8 K/uL (1.0-4.3); LYMPH % 15.7 % (20.0-40.0); MEAN CORPUSCULAR HEMOGLOBIN 19.6 pg (27.0-31.0); MEAN CORPUSCULAR HGB CONC 30.1 g/dL (33.0-37.0); MEAN PLATELET VOLUME 8.8 fL (7.2-11.7); MONO # 0.8 K/uL (0.0-0.8); RED CELL DISTRIBUTION WIDTH 27.9 % (11.5-14.5); WHITE BLOOD COUNT 11.3 K/uL (4.8-10.8)
[2017-03-27] MEDS: (Novolog) Insulin Aspart, Recombinant 100 u/ml 10 ml vial SC SCH (07:30)
[2017-03-27 07:36] LABS: CHLORIDE 98 mmol/L (98-107); SODIUM 142 mmol/L (132-148)
[2017-03-27 07:38] LABS: ALB/GLOB RATIO 1.4 (1.0-2.1); AST/SGOT 40 U/L (17-59); BILIRUBIN,TOTAL 0.5 mg/dL (0.2-1.3); CARBON DIOXIDE 33 mmol/L (22-30); GFR AFRICAN-AMERICAN > 60; TOTAL PROTEIN 6.4 g/dL (6.3-8.3)
[2017-03-27 07:39] LABS: ALKALINE PHOSPHATASE 109 U/L (38-126); ALT/SGPT 58 U/L (21-72); BLOOD UREA NITROGEN 5 mg/dL (9-20); CALCIUM 9.2 mg/dl (8.6-10.4); GLUCOSE,RANDOM 88 mg/dL (75-110)
[2017-03-27] MEDS: Budesonide 0.5 mg/2 ml Inhal Susp UD INH SCH ×2 (08:32→19:26)
[2017-03-27] MEDS: Fluticasone-Salmeterol 250-50mcg Diskus INH SCH ×2 (08:33→19:25)
[2017-03-27 10:12] LABS: ABG ALLEN TEST POS; ARTERIAL BLOOD HGB O2 SAT 95.6 % (95.0-98.0); CARBOXYHEMOGLOBIN 0.4 % (0.5-1.5); DRAW SITE RR; HHB 3.9 % (0.0-5.0); METHEMOGLOBIN 0.1 % (0.0-3.0)
[2017-03-27] MEDS ORDERED: Dextrose 5%/0.45% NS 1,000 ML IV SCH ×2 (10:15→16:05)
[2017-03-27] MEDS: guaiFENesin 600 mg ER Tab PO SCH ×2 (10:29→18:23)
[2017-03-27] MEDS: Pantoprazole 40 mg EC Tab PO SCH (10:29)
[2017-03-27] MEDS: Vitamin B Complex/Vitamin C Tab PO SCH (10:29)
[2017-03-27] MEDS: MethylPREDNISolone 40 mg Vial IVP SCH (10:36)
[2017-03-27] MEDS ORDERED: Midazolam 2 MG/2 ML VIAL ONE (11:06)
[2017-03-27] MEDS ORDERED: Rocuronium 10 mg/ml (10 ml) ONE (11:06)
[2017-03-27] MEDS ORDERED: Albuterol HFA 90 mcg/actuation (8 g) ONE (11:06)
[2017-03-27] MEDS ORDERED: Propofol 10 mg/ml Inj (20 ML) ONE (11:06)
[2017-03-27] MEDS ORDERED: Gentamicin 80 mg in 0.9% NS 160 MG/200 ML BAG IVPB ONE (11:12)
[2017-03-27] MEDS ORDERED: Ciprofloxacin 400mg/200ml D5W 400 MG/200 ML BAG IVPB ONE (11:12)
[2017-03-27] MEDS ORDERED: Lactated Ringer's 1,000 ML IV ONE ×4 (11:15→12:20)
[2017-03-27] MEDS ORDERED: Etomidate 20 mg/10ml Inj IV ONE ×2 (11:23→11:24)
[2017-03-27] MEDS ORDERED: Iohexol 240 (50 ml) ONE (11:30)
--- NOTE | 2017-03-27 11:51 | PCM.SURG1 ---
Surgeon's Initial Post Op Note - Surgeon's Notes Surgeon: Castillo Opal Miner: CORINA Type of Anesthesia: General Endo Anesthesia Administered By: staff Pre-Operative Diagnosis: COLON TUMOR Operative Findings: normal ureteral orrifices Post-Operative Diagnosis: colon tumor Operation Performed: Cysto,Bilat insertion of ureteral catheters Specimen/Specimens Removed: na Estimated Blood Loss: EBL {In ML}: 0 Blood Products Given: N/A Drains Used: No Drains Post-Op Condition: Good Date of Surgery/Procedure: 03/27/17 Time of Surgery/Procedure: 11:51
[2017-03-27] MEDS ORDERED: metroNIDAZOLE IV 500 mg/100 ml 500 MG/100 ML BAG ONE (12:15)
[2017-03-27] MEDS ORDERED: ceFAZolin IV 1 gm in Dextrose 1 GM/50 ML BAG IVPB ONE (12:15)
[2017-03-27] MEDS ORDERED: Phenylephrine 10 mg/ml Inj ONE (14:31)
[2017-03-27] MEDS ORDERED: Neostigmine Methylsulfate 3mg/3ml Syringe IV ONE (14:49)
[2017-03-27] MEDS ORDERED: Bacitracin Ointment 30 GM TUBE ONE (15:09)
--- NOTE | 2017-03-27 15:51 | PCM.SURG1 ---
Surgeon's Initial Post Op Note - Surgeon's Notes Surgeon: Dr. Nieto Leasing Associate: Dr. Campos PGY-4, Dr. Steven PGY-3 Type of Anesthesia: General Endo Pre-Operative Diagnosis: Tubulovillous adenoma x2 in Sigmoid and rectosigmoid Operative Findings: small sigmoid polyp and large rectosigmoid polyp visualized in specimen Post-Operative Diagnosis: Tubulovillous adenoma x2 in Sigmoid and rectosigmoid Operation Performed: Low anterior resection with loop ileostomy Specimen/Specimens Removed: sigmoid and rectosigmoid (stitch on distal margin) Estimated Blood Loss: EBL {In ML}: 100 Blood Products Given: N/A Drains Used: Ezra Post-Op Condition: Fair Date of Surgery/Procedure: 03/27/17 Time of Surgery/Procedure: 12:00
[2017-03-27] MEDS ORDERED: HYDROmorphone 0.5 mg/0.5 ml ISec IVP PRN (16:08)
[2017-03-27] MEDS: HYDROmorphone 0.5 mg/0.5 ml ISec IVP PRN ×5 (16:15→23:39)
[2017-03-27] MEDS ORDERED: HYDROmorphone 1 mg/ml ISec ONE (16:18)
--- NOTE | 2017-03-27 16:53 | RAD ---
PROCEDURE: Intraoperative Fluoroscopy. HISTORY: COLON CA. FINDINGS: Fluoroscopic assistance was provided for bilateral stent placement.. images from the current procedure: 3.0
[2017-03-27] MEDS: Lactated Ringer's 1,000 ML IV SCH ×2 (17:30→23:07)
--- NOTE | 2017-03-27 17:35 | CP.PCM.CON ---
<Dhavaljosé miguelMelody ИванKathya - Last Filed: 03/27/17 18:22> History of Present Illness - History of Present Illness History of Present Illness: 66 year old male with medical history of COPD with emphysema, asthma, DM, and anemia, presents to the ICU s/p resection with loop ileostomy of two tubulovillous adenomas. Patient originally presented to the hospital on 03/19/17 for SOB, COPD exacerbation. During his hospitalization, his hemoglobin decreased and he received PRBC transfusions. Colonoscopy was performed and found 5 polyps; 3 were removed at that time, and the two remaining were too large and needed follow-up surgery. Patient is currently reporting severe abdominal pain post-surgery and "a little short of breath". Patient denies remaining review of systems. PMD: Dr. Garcia, Dr. Nuno PMHx: COPD with emphysema, asthma, DM, anemia SurgHx: "eye surgery" 2016 FamHx: brother- colon and stomach cancer SocHx: former smoker ([id number], quit 4.5 years ago), former drinker (quit 15yrs ago), denies drug use; lives with Allergies: Tylenol, Shrimp (red rash, swelling) Medications: see EMR Review of Systems - Constitutional Constitutional: absent: Fever (but "feels hot"), Headache - Cardiovascular Cardiovascular: Dyspnea. absent: Chest Pain, Palpitations - Respiratory Respiratory: Dyspnea, Pain with Coughing (due to surgery). absent: Cough - Gastrointestinal Gastrointestinal: Abdominal Pain (s/p surgery). absent: Constipation, Diarrhea , Nausea, Vomiting - Neurological Neurological: absent: Headaches - Endocrine Endocrine: absent: Palpitations Past Patient History - Infectious Disease Hx of Infectious Diseases: None - Past Medical History & Family History Past Medical History?: Yes - Past Social History Smoking Status: Former Smoker - CARDIAC Hx Congestive Heart Failure: Yes Hx Hypercholesterolemia: Yes Hx Hypertension: Yes - PULMONARY Hx Chronic Obstructive Pulmonary Disease (COPD): Yes - NEUROLOGICAL Hx Neurological Disorder: No - HEENT Hx HEENT Problems: Yes Hx Cataracts: Yes (left cataract removed, r cataract) Other/Comment: wears eyeglasses for distance - RENAL Hx Chronic Kidney Disease: Yes - ENDOCRINE/METABOLIC Hx Diabetes Mellitus Type 2: Yes - HEMATOLOGICAL/ONCOLOGICAL Hx Blood Disorders: No - INTEGUMENTARY Hx Dermatological Problems: No - MUSCULOSKELETAL/RHEUMATOLOGICAL Hx Arthritis: Yes (BACK; KNEES) - GASTROINTESTINAL Hx Gastritis: No - PSYCHIATRIC Hx Anxiety: Yes Hx Substance Use: No - SURGICAL HISTORY Hx Surgeries: Yes Hx Cardiac Catheterization: Yes (11/2015) - ANESTHESIA Hx Anesthesia: Yes Hx Anesthesia Reactions: Yes (pt dont know. aware) Hx Malignant Hyperthermia: No Meds Allergies/Adverse Reactions: Allergies Allergy/AdvReac Type Severity Reaction Status Date / Time acetaminophen [From Tylenol] Allergy RASH Verified 03/02/17 22:26 FISH Allergy SWELLING Verified 03/02/17 22:26 shrimp Allergy SHORTNESS Verified 03/02/17 22:26 OF BREATH IV dye Allergy ANAPHYLAXIS Uncoded 03/23/17 14:45 - Medications Medications: Current Medications Albuterol/Ipratropium (Duoneb 3 Mg/0.5 Mg (3 Ml) Ud) 3 ml INH RQ6 ON LICENSE OF [facility] Last Admin: 03/27/17 13:35 Dose: Not Given Alprazolam (Xanax) 0.5 mg PO BID PRN PRN Reason: Anxiety Last Admin: 03/26/17 22:06 Dose: 0.5 mg Budesonide (Pulmicort Respules) 0.5 mg INH RBID ON LICENSE OF [facility] Last Admin: 03/27/17 08:32 Dose: 0.5 mg Docusate Sodium (Colace) 100 mg PO BID ON LICENSE OF [facility] Last Admin: 03/27/17 10:29 Dose: Not Given Ferric Sodium Gluconate Complex (Ferrlecit) 125 mg IVPB Q24H ON LICENSE OF [facility] Stop: 03/28/17 17:01 Last Admin: 03/26/17 16:43 Dose: 125 mg Fluconazole (Diflucan) 100 mg PO DAILY ON LICENSE OF [facility] Last Admin: 03/27/17 10:29 Dose: Not Given Guaifenesin (Mucinex La) 600 mg PO BID ON LICENSE OF [facility] Last Admin: 03/27/17 10:29 Dose: Not Given Heparin Sodium (Porcine) (Heparin) 5,000 units SC Q12H ON LICENSE OF [facility] Home Med (Patient's Own Inhalation Solution) 1 ml INH RBID ON LICENSE OF [facility] Last Admin: 03/26/17 13:05 Dose: Not Given Hydromorphone HCl (Dilaudid) 0.5 mg IVP Q10M PRN PRN Reason: Pain, moderate (4-7) Stop: 03/27/17 18:10 Hydromorphone HCl (Dilaudid) 0.5 mg IVP Q2H PRN PRN Reason: Pain, severe (8-10) Hydromorphone/Sodium Chloride (Dilaudid Telesales Agent) 6 mg IV Q4H PRN; Protocol PRN Reason: Pain, moderate (4-7) Dextrose/Sodium Chloride (Dextrose 5%/0.45% Ns 1000 Ml) 1,000 mls @ 125 mls/hr IV .Q8H ON LICENSE OF [facility] Lactated Ringer's (Lactated Ringer's) 1,000 mls @ 100 mls/hr IV .Q10H ON LICENSE OF [facility] Ciprofloxacin (Cipro 400mg/200ml Dsw) 400 mg in 200 mls @ 133 mls/hr IVPB Q12H ON LICENSE OF [facility] Stop: 03/28/17 12:51 Metronidazole (Flagyl) 500 mg in 100 mls @ 100 mls/hr IVPB Q8H ON LICENSE OF [facility] Stop: 03/28/17 14:59 Insulin Aspart (Novolog) 0 unit SC [facility] ON LICENSE OF [facility] PRN Reason: Protocol Last Admin: 03/27/17 07:30 Dose: Not Given Insulin Glargine (Lantus) 16 unit SC [facility] Last Admin: 03/26/17 22:06 Dose: Not Given Metformin HCl (Glucophage) 1,000 mg PO BID ON LICENSE OF [facility] Last Admin: 03/27/17 10:29 Dose: Not Given Methylprednisolone (Solu-Medrol) 40 mg IVP DAILY ON LICENSE OF [facility] Last Admin: 03/27/17 10:36 Dose: 40 mg Metoclopramide HCl (Reglan) 10 mg IVP ONCE PRN PRN Reason: Nausea/Vomiting Stop: 03/27/17 18:11 Montelukast Sodium (Singulair) 10 mg PO [facility] Last Admin: 03/26/17 22:06 Dose: 10 mg Ondansetron HCl (Zofran Inj) 4 mg IVP Q4 PRN PRN Reason: Nausea/Vomiting Pantoprazole Sodium (Protonix Ec Tab) 40 mg PO DAILY ON LICENSE OF [facility] Last Admin: 03/27/17 10:29 Dose: Not Given Polyethylene Glycol (Miralax) 17 gm PO DAILY ON LICENSE OF [facility] Last Admin: 03/25/17 09:25 Dose: 17 gm Pregabalin (Lyrica) 50 mg PO BID ON LICENSE OF [facility] Last Admin: 03/27/17 10:29 Dose: Not Given Roflumilast (Daliresp) 500 mcg PO DAILY ON LICENSE OF [facility] Last Admin: 03/27/17 10:28 Dose: Not Given Fluticasone/Salmeterol (Advair Diskus 250/50) 1 puff INH RBID ON LICENSE OF [facility] Last Admin: 03/27/17 08:33 Dose: Not Given Vitamin B Complex/Vitamin C (Berocca) 1 tab PO DAILY ON LICENSE OF [facility] Last Admin: 03/27/17 10:29 Dose: Not Given Physical Exam - Constitutional Appears: In Acute Distress (pain s/p surgery) - Head Exam Head Exam: ATRAUMATIC, NORMAL INSPECTION - Eye Exam Eye Exam: EOMI, Periorbital swelling (+ ecchymosis). absent: Normal appearance - ENT Exam ENT Exam: Mucous Membranes Moist - Respiratory Exam Respiratory Exam: Wheezes. absent: Clear to Auscultation Bilateral, NORMAL BREATHING PATTERN - Cardiovascular Exam Cardiovascular Exam: Tachycardia, +S1, +S2 - GI/Abdominal Exam GI & Abdominal Exam: absent: Normal Bowel Sounds (diminished; abdomen bandaged s /p surgery) - Neurological Exam Neurological exam: Alert - Psychiatric Exam Psychiatric exam: Agitated (due to pain) - Skin Skin Exam: Dry, Intact, Normal Color, Warm Results - Vital Signs Recent Vital Signs: Last Vital Signs Temp 97 F L 03/27/17 15:49 Pulse 111 H 03/27/17 16:00 Resp 18 03/27/17 16:00 BP 128/79 03/27/17 16:00 Pulse Ox 100 03/27/17 16:00 - Labs Result Diagrams: 03/27/17 07:00 03/27/17 07:00 Labs: Laboratory Results - last 24 hr 03/26/17 03/26/17 03/27/17 17:09 21:18 06:51 WBC RBC Hgb Hct MCV MCH MCHC RDW Plt Count MPV Neut % (Auto) Lymph % (Auto) [place] % (Auto) Eos % (Auto) Baso % (Auto) Neut # Lymph # [place] # Eos # Baso # PT INR APTT Puncture Site pCO2 pO2 HCO3 ABG pH ABG Total CO2 ABG O2 Saturation ABG Base Excess ABG Hemoglobin ABG Carboxyhemoglobin POC ABG HHb (Measured) ABG Methemoglobin Jesus Test A-a O2 Difference Respiratory Index Hgb O2 Saturation Liter Flow FiO2 Sodium Potassium Chloride Carbon Dioxide Anion Gap BUN Creatinine Est GFR ( Amer) Est GFR (Non-Af Amer) POC Glucose (mg/dL) 189 H 201 H 89 Random Glucose Calcium Total Bilirubin AST ALT Alkaline Phosphatase Total Protein Albumin Globulin Albumin/Globulin Ratio 03/27/17 03/27/17 03/27/17 07:00 07:00 07:00 WBC 11.3 H RBC 4.59 Hgb 9.0 L Hct 29.8 L MCV 65.0 L MCH 19.6 L MCHC 30.1 L RDW 27.9 H Plt Count 284 MPV 8.8 Neut % (Auto) 76.0 H Lymph % (Auto) 15.7 L [place] % (Auto) 7.0 Eos % (Auto) 0.9 Baso % (Auto) 0.4 Neut # 8.6 H Lymph # 1.8 [place] # 0.8 Eos # 0.1 Baso # 0.0 PT 11.7 INR 1.0 APTT 27 Puncture Site pCO2 pO2 HCO3 ABG pH ABG Total CO2 ABG O2 Saturation ABG Base Excess ABG Hemoglobin ABG Carboxyhemoglobin POC ABG HHb (Measured) ABG Methemoglobin Jesus Test A-a O2 Difference Respiratory Index Hgb O2 Saturation Liter Flow FiO2 Sodium 142 Potassium 4.0 Chloride 98 Carbon Dioxide 33 H Anion Gap 15 BUN 5 L Creatinine 0.6 L Est GFR ( Amer) > 60 Est GFR (Non-Af Amer) > 60 POC Glucose (mg/dL) Random Glucose 88 Calcium 9.2 Total Bilirubin 0.5 AST 40 ALT 58 Alkaline Phosphatase 109 Total Protein 6.4 Albumin 3.7 Globulin 2.7 Albumin/Globulin Ratio 1.4 03/27/17 03/27/17 03/27/17 10:09 10:42 14:17 WBC RBC Hgb Hct MCV MCH MCHC RDW Plt Count MPV Neut % (Auto) Lymph % (Auto) [place] % (Auto) Eos % (Auto) Baso % (Auto) Neut # Lymph # [place] # Eos # Baso # PT INR APTT Puncture Site Rr pCO2 43 pO2 89 HCO3 32.3 H ABG pH 7.50 H ABG Total CO2 34.8 H ABG O2 Saturation 96.1 ABG Base Excess 9.4 H ABG Hemoglobin 9.0 L ABG Carboxyhemoglobin 0.4 L POC ABG HHb (Measured) 3.9 ABG Methemoglobin 0.1 Jesus Test Pos A-a O2 Difference 114.0 Respiratory Index 1.3 Hgb O2 Saturation 95.6 Liter Flow 3.0 FiO2 36.0 Sodium Potassium Chloride Carbon Dioxide Anion Gap BUN Creatinine Est GFR ( Amer) Est GFR (Non-Af Amer) POC Glucose (mg/dL) 108 251 H Random Glucose Calcium Total Bilirubin AST ALT Alkaline Phosphatase Total Protein Albumin Globulin Albumin/Globulin Ratio 03/27/17 16:41 WBC RBC Hgb Hct MCV MCH MCHC RDW Plt Count MPV Neut % (Auto) Lymph % (Auto) [place] % (Auto) Eos % (Auto) Baso % (Auto) Neut # Lymph # [place] # Eos # Baso # PT INR APTT Puncture Site pCO2 pO2 HCO3 ABG pH ABG Total CO2 ABG O2 Saturation ABG Base Excess ABG Hemoglobin ABG Carboxyhemoglobin POC ABG HHb (Measured) ABG Methemoglobin Jesus Test A-a O2 Difference Respiratory Index Hgb O2 Saturation Liter Flow FiO2 Sodium Potassium Chloride Carbon Dioxide Anion Gap BUN Creatinine Est GFR ( Amer) Est GFR (Non-Af Amer) POC Glucose (mg/dL) 269 H Random Glucose Calcium Total Bilirubin AST ALT Alkaline Phosphatase Total Protein Albumin Globulin Albumin/Globulin Ratio Assessment & Plan - Assessment and Plan (Free Text) Assessment: 66 year old male with medical history of COPD with emphysema, asthma, DM, and anemia, presents to the ICU s/p resection with loop ileostomy of two tubulovillous adenomas (with Dr. Nieto). Neuro: alert, agitated due to pain - Dilaudid for pain Pulm: Hx of COPD w/emphysema, Asthma - Continue Solumedrol, Duonebs, pulmicort, advair, daliresp, robitussin - BiPAP at night, prn (Hx of sleep apnea) - Incentive spirometry CV: Hemodynamically stable - Continue lactated ringers 1000ml @100ml/hr - Monitor Endo: Hx of DM - Monitor blood glucose - Continue ISS, Metformin, Lantus GI: s/p resection with loop ileostomy of tubulovillous adenoma x2 (in sigmoid and rectosigmoid) - Hx of GI bleed, 5 polyps total - Dilaudid for pain Heme: Hx of GI bleed, anemia - Monitor H/H - Repeat CBC: f/u Renal: no acute issues - Monitor kidney function ID: Leukocytosis - Continue Ciprofloxacin and Flagyl Prophylaxis: - DVT: hold Heparin s/p surgery - GI: Protonix <Ralf Nuno S - Last Filed: 03/27/17 18:52> Meds - Medications Medications: Current Medications Albuterol/Ipratropium (Duoneb 3 Mg/0.5 Mg (3 Ml) Ud) 3 ml INH RQ6 ON LICENSE OF [facility] Last Admin: 03/27/17 13:35 Dose: Not Given Alprazolam (Xanax) 0.5 mg PO BID PRN PRN Reason: Anxiety Last Admin: 03/26/17 22:06 Dose: 0.5 mg Budesonide (Pulmicort Respules) 0.5 mg INH RBID ON LICENSE OF [facility] Last Admin: 03/27/17 08:32 Dose: 0.5 mg Docusate Sodium (Colace) 100 mg PO BID ON LICENSE OF [facility] Last Admin: 03/27/17 18:25 Dose: Not Given Ferric Sodium Gluconate Complex (Ferrlecit) 125 mg IVPB Q24H ON LICENSE OF [facility] Stop: 03/28/17 17:01 Last Admin: 03/27/17 18:20 Dose: 125 mg Fluconazole (Diflucan) 100 mg PO DAILY ON LICENSE OF [facility] Last Admin: 03/27/17 10:29 Dose: Not Given Guaifenesin (Mucinex La) 600 mg PO BID ON LICENSE OF [facility] Last Admin: 03/27/17 18:23 Dose: Not Given Heparin Sodium (Porcine) (Heparin) 5,000 units SC Q12H ON LICENSE OF [facility] Last Admin: 03/27/17 18:23 Dose: Not Given Home Med (Patient's Own Inhalation Solution) 1 ml INH RBID ON LICENSE OF [facility] Last Admin: 03/26/17 13:05 Dose: Not Given Hydromorphone HCl (Dilaudid) 0.5 mg IVP Q2H PRN PRN Reason: Pain, severe (8-10) Last Admin: 03/27/17 18:15 Dose: 0.5 mg Hydromorphone/Sodium Chloride (Dilaudid Telesales Agent) 6 mg IV Q4H PRN; Protocol PRN Reason: Pain, moderate (4-7) Dextrose/Sodium Chloride (Dextrose 5%/0.45% Ns 1000 Ml) 1,000 mls @ 125 mls/hr IV .Q8H ON LICENSE OF [facility] Last Admin: 03/27/17 17:30 Dose: 125 mls/hr Lactated Ringer's (Lactated Ringer's) 1,000 mls @ 100 mls/hr IV .Q10H ON LICENSE OF [facility] Ciprofloxacin (Cipro 400mg/200ml Dsw) 400 mg in 200 mls @ 133 mls/hr IVPB Q12H ON LICENSE OF [facility] Stop: 03/28/17 12:51 Metronidazole (Flagyl) 500 mg in 100 mls @ 100 mls/hr IVPB Q8H ON LICENSE OF [facility] Stop: 03/28/17 14:59 Insulin Aspart (Novolog) 0 unit SC [facility] ON LICENSE OF [facility] PRN Reason: Protocol Last Admin: 03/27/17 07:30 Dose: Not Given Insulin Glargine (Lantus) 16 unit SC [facility] Last Admin: 03/26/17 22:06 Dose: Not Given Metformin HCl (Glucophage) 1,000 mg PO BID ON LICENSE OF [facility] Last Admin: 03/27/17 18:23 Dose: Not Given Methylprednisolone (Solu-Medrol) 40 mg IVP DAILY ON LICENSE OF [facility] Last Admin: 03/27/17 10:36 Dose: 40 mg Montelukast Sodium (Singulair) 10 mg PO [facility] Last Admin: 03/26/17 22:06 Dose: 10 mg Ondansetron HCl (Zofran Inj) 4 mg IVP Q4 PRN PRN Reason: Nausea/Vomiting Pantoprazole Sodium (Protonix Ec Tab) 40 mg PO DAILY ON LICENSE OF [facility] Last Admin: 03/27/17 10:29 Dose: Not Given Polyethylene Glycol (Miralax) 17 gm PO DAILY ON LICENSE OF [facility] Last Admin: 03/25/17 09:25 Dose: 17 gm Pregabalin (Lyrica) 50 mg PO BID ON LICENSE OF [facility] Last Admin: 03/27/17 18:23 Dose: Not Given Roflumilast (Daliresp) 500 mcg PO DAILY ON LICENSE OF [facility] Last Admin: 03/27/17 10:28 Dose: Not Given Fluticasone/Salmeterol (Advair Diskus 250/50) 1 puff INH RBID ON LICENSE OF [facility] Last Admin: 03/27/17 08:33 Dose: Not Given Vitamin B Complex/Vitamin C (Berocca) 1 tab PO DAILY ON LICENSE OF [facility] Last Admin: 03/27/17 10:29 Dose: Not Given Results - Vital Signs Recent Vital Signs: Last Vital Signs Temp 98 F 03/27/17 17:00 Pulse 116 H 03/27/17 17:00 Resp 19 03/27/17 17:00 BP 115/77 08/15/17 17:00 Pulse Ox 100 03/27/17 17:00 - Labs Result Diagrams: 03/27/17 07:00 03/27/17 07:00 Labs: Laboratory Results - last 24 hr 03/26/17 03/27/17 03/27/17 21:18 06:51 07:00 WBC 11.3 H RBC 4.59 Hgb 9.0 L Hct 29.8 L MCV 65.0 L MCH 19.6 L MCHC 30.1 L RDW 27.9 H Plt Count 284 MPV 8.8 Neut % (Auto) 76.0 H Lymph % (Auto) 15.7 L [place] % (Auto) 7.0 Eos % (Auto) 0.9 Baso % (Auto) 0.4 Neut # 8.6 H Lymph # 1.8 [place] # 0.8 Eos # 0.1 Baso # 0.0 PT INR APTT Puncture Site pCO2 pO2 HCO3 ABG pH ABG Total CO2 ABG O2 Saturation ABG Base Excess ABG Hemoglobin ABG Carboxyhemoglobin POC ABG HHb (Measured) ABG Methemoglobin Jesus Test A-a O2 Difference Respiratory Index Hgb O2 Saturation Liter Flow FiO2 Sodium Potassium Chloride Carbon Dioxide Anion Gap BUN Creatinine Est GFR ( Amer) Est GFR (Non-Af Amer) POC Glucose (mg/dL) 201 H 89 Random Glucose Calcium Total Bilirubin AST ALT Alkaline Phosphatase Total Protein Albumin Globulin Albumin/Globulin Ratio 03/27/17 03/27/17 03/27/17 07:00 07:00 10:09 WBC RBC Hgb Hct MCV MCH MCHC RDW Plt Count MPV Neut % (Auto) Lymph % (Auto) [place] % (Auto) Eos % (Auto) Baso % (Auto) Neut # Lymph # [place] # Eos # Baso # PT 11.7 INR 1.0 APTT 27 Puncture Site Rr pCO2 43 pO2 89 HCO3 32.3 H ABG pH 7.50 H ABG Total CO2 34.8 H ABG O2 Saturation 96.1 ABG Base Excess 9.4 H ABG Hemoglobin 9.0 L ABG Carboxyhemoglobin 0.4 L POC ABG HHb (Measured) 3.9 ABG Methemoglobin 0.1 Jesus Test Pos A-a O2 Difference 114.0 Respiratory Index 1.3 Hgb O2 Saturation 95.6 Liter Flow 3.0 FiO2 36.0 Sodium 142 Potassium 4.0 Chloride 98 Carbon Dioxide 33 H Anion Gap 15 BUN 5 L Creatinine 0.6 L Est GFR ( Amer) > 60 Est GFR (Non-Af Amer) > 60 POC Glucose (mg/dL) Random Glucose 88 Calcium 9.2 Total Bilirubin 0.5 AST 40 ALT 58 Alkaline Phosphatase 109 Total Protein 6.4 Albumin 3.7 Globulin 2.7 Albumin/Globulin Ratio 1.4 03/27/17 03/27/17 03/27/17 10:42 14:17 16:41 WBC RBC Hgb Hct MCV MCH MCHC RDW Plt Count MPV Neut % (Auto) Lymph % (Auto) [place] % (Auto) Eos % (Auto) Baso % (Auto) Neut # Lymph # [place] # Eos # Baso # PT INR APTT Puncture Site pCO2 pO2 HCO3 ABG pH ABG Total CO2 ABG O2 Saturation ABG Base Excess ABG Hemoglobin ABG Carboxyhemoglobin POC ABG HHb (Measured) ABG Methemoglobin Jesus Test A-a O2 Difference Respiratory Index Hgb O2 Saturation Liter Flow FiO2 Sodium Potassium Chloride Carbon Dioxide Anion Gap BUN Creatinine Est GFR ( Amer) Est GFR (Non-Af Amer) POC Glucose (mg/dL) 108 251 H 269 H Random Glucose Calcium Total Bilirubin AST ALT Alkaline Phosphatase Total Protein Albumin Globulin Albumin/Globulin Ratio Assessment & Plan (1) COPD (chronic obstructive pulmonary disease) with emphysema Status: Acute Priority: High (2) Acute respiratory distress Status: Acute Attending/Attestation - Attestation I have personally seen and examined this patient.: Yes I have fully participated in the care of the patient.: Yes I have reviewed all pertinent clinical information: Yes Notes (Text): 03/27/17 18:49 Patient seen and examined in the intensive care unit. 66-year-old male with history of COPD status post low anterior resection with loop ileostomy for sigmoid polyp and large rectosigmoid polyp Patient extubated in the recovery ICU observation BiPAP at night Continue pain medication Continue IV fluids Intake and output Follow-up CBC Continue nebulizer treatment
[2017-03-27] MEDS: Ferric Sodium Gluconat Complex 62.5 mg/5 ml Vial IVPB SCH (18:20)
[2017-03-27 18:50] LABS: BASO # 0.1 K/uL (0.0-0.2); BASO % 0.4 % (0.0-2.0); LYMPH # 0.3 K/uL (1.0-4.3); LYMPH % 1.1 % (20.0-40.0); MEAN CELL VOLUME 65.1 fL (80.0-94.0); MEAN CORPUSCULAR HEMOGLOBIN 19.5 pg (27.0-31.0); MEAN CORPUSCULAR HGB CONC 29.9 g/dL (33.0-37.0); MEAN PLATELET VOLUME 8.7 fL (7.2-11.7); MONO # 1.1 K/uL (0.0-0.8); MONO % 4.2 % (0.0-10.0); PLATELET COUNT 311 K/uL (130-400); RED CELL DISTRIBUTION WIDTH 28.4 % (11.5-14.5); WHITE BLOOD COUNT 25.1 K/uL (4.8-10.8)
[2017-03-27 18:57] LABS: CHLORIDE 97 mmol/L (98-107); SODIUM 133 mmol/L (132-148)
[2017-03-27 18:58] LABS: POTASSIUM 4.7 mmol/L (3.6-5.2)
[2017-03-27 19:00] LABS: CARBON DIOXIDE 27 mmol/L (22-30); GFR AFRICAN-AMERICAN > 60
[2017-03-27 19:01] LABS: BLOOD UREA NITROGEN 8 mg/dL (9-20); CALCIUM 7.9 mg/dl (8.6-10.4); GLUCOSE,RANDOM 267 mg/dL (75-110)
[2017-03-27 20:39] LABS: METAMYELOCYTE 1 % (0-0); NEUTROPHIL 80 % (50-75); TOTAL CELLS COUNTED 100
[2017-03-27] MEDS: metroNIDAZOLE IV 500 mg/100 ml 500 MG/100 ML BAG IVPB SCH (21:56)
--- NOTE | 2017-03-27 22:59 | PN ---
DATE: 03/27/2017 SUBJECTIVE: The patient is currently in the ICU. He underwent low anterior bowel resection with ileostomy for a rectosigmoid mass. He is extubated and awake, experiencing abdominal discomfort. PHYSICAL EXAMINATION: VITAL SIGNS: Blood pressure 128/79, heart rate 130, sinus tachycardia, temperature 97. HEENT: [place] conjunctivae. CHEST: Bilateral rhonchi. EXTREMITIES: No edema. LABORATORY DATA: This morning, chemistry revealed carbon dioxide of 33, BUN of 5, creatinine 0.6. The rest of SMA-7 was within normal limits. This morning, hemoglobin and hematocrit 9.0 and 29.8, white count 11.3, platelet count 184,000. ASSESSMENT: 1. Status post low anterior bowel resection with ileostomy. 2. Chronic obstructive lung disease. 3. Right heart failure. 4. Mild anemia. RECOMMENDATIONS: Case was discussed with administration professional, Dr. Nuno. Continue current IV Dilaudid p.r.n. Continue bronchodilators and monitor for patient's respiratory status. I will obtain a 12-lead EKG. Mukesh Correia MD
--- NOTE | 2017-03-27 23:30 | CP.PCM.PN ---
Subjective - Date & Time of Evaluation Date of Evaluation: 03/27/17 Time of Evaluation: 10:17 - Subjective Subjective: IS IN OR, D/W DR MANZANO , NOW IN MICU, HIGH WBC, D/W , HIGH RISK, BUT THERE IS NEED TO OPERATE Objective - Vital Signs/Intake and Output Vital Signs (last 24 hours): Temp Pulse Resp BP Pulse Ox 98.3 F 125 H 18 130/76 97 03/27/17 20:12 03/27/17 22:00 03/27/17 22:00 03/27/17 22:00 03/27/17 22:00 Intake and Output: 03/27/17 03/28/17 18:59 06:59 Intake Total 325 475 Output Total 800 75 Balance -475 400 - Medications Medications: Current Medications Albuterol/Ipratropium (Duoneb 3 Mg/0.5 Mg (3 Ml) Ud) 3 ml INH RQ6 [facility] Last Admin: 03/27/17 19:25 Dose: 3 ml Alprazolam (Xanax) 0.5 mg PO BID PRN PRN Reason: Anxiety Last Admin: 03/26/17 22:06 Dose: 0.5 mg Budesonide (Pulmicort Respules) 0.5 mg INH RBID [facility] Last Admin: 03/27/17 19:26 Dose: Not Given Docusate Sodium (Colace) 100 mg PO BID [facility] Last Admin: 03/27/17 18:25 Dose: Not Given Ferric Sodium Gluconate Complex (Ferrlecit) 125 mg IVPB Q24H [facility] Stop: 03/28/17 17:01 Last Admin: 03/27/17 18:20 Dose: 125 mg Fluconazole (Diflucan) 100 mg PO DAILY [facility] Last Admin: 03/27/17 10:29 Dose: Not Given Guaifenesin (Mucinex La) 600 mg PO BID [facility] Last Admin: 03/27/17 18:23 Dose: Not Given Heparin Sodium (Porcine) (Heparin) 5,000 units SC Q12H [facility] Last Admin: 03/27/17 18:23 Dose: Not Given Home Med (Patient's Own Inhalation Solution) 1 ml INH RBID [facility] Last Admin: 03/26/17 13:05 Dose: Not Given Hydromorphone HCl (Dilaudid) 0.5 mg IVP Q2H PRN PRN Reason: Pain, severe (8-10) Last Admin: 03/27/17 20:33 Dose: 0.5 mg Lactated Ringer's (Lactated Ringer's) 1,000 mls @ 100 mls/hr IV .Q10H [facility] Last Admin: 03/27/17 23:07 Dose: 100 mls/hr Ciprofloxacin (Cipro 400mg/200ml Dsw) 400 mg in 200 mls @ 133 mls/hr IVPB Q12H [facility] Stop: 03/28/17 12:51 Metronidazole (Flagyl) 500 mg in 100 mls @ 100 mls/hr IVPB Q8H [facility] Stop: 03/28/17 14:59 Last Admin: 03/27/17 21:56 Dose: 100 mls/hr Insulin Aspart (Novolog) 0 unit SC [facility] PRN Reason: Protocol Last Admin: 03/27/17 07:30 Dose: Not Given Insulin Glargine (Lantus) 16 unit SC [facility] Last Admin: 03/26/17 22:06 Dose: Not Given Metformin HCl (Glucophage) 1,000 mg PO BID [facility] Last Admin: 03/27/17 18:23 Dose: Not Given Methylprednisolone (Solu-Medrol) 40 mg IVP DAILY [facility] Last Admin: 03/27/17 10:36 Dose: 40 mg Montelukast Sodium (Singulair) 10 mg PO [facility] Last Admin: 03/27/17 21:54 Dose: Not Given Ondansetron HCl (Zofran Inj) 4 mg IVP Q4 PRN PRN Reason: Nausea/Vomiting Pantoprazole Sodium (Protonix Inj) 40 mg IVP DAILY [facility] Polyethylene Glycol (Miralax) 17 gm PO DAILY [facility] Last Admin: 03/25/17 09:25 Dose: 17 gm Pregabalin (Lyrica) 50 mg PO BID [facility] Last Admin: 03/27/17 18:23 Dose: Not Given Roflumilast (Daliresp) 500 mcg PO DAILY [facility] Last Admin: 03/27/17 10:28 Dose: Not Given Fluticasone/Salmeterol (Advair Diskus 250/50) 1 puff INH RBID [facility] Last Admin: 03/27/17 19:25 Dose: Not Given Vitamin B Complex/Vitamin C (Berocca) 1 tab PO DAILY [facility] Last Admin: 03/27/17 10:29 Dose: Not Given - Labs Labs: 03/27/17 18:46 03/27/17 18:46 PT 11.7 SECONDS (9.7-12.2) 03/27/17 07:00 INR 1.0 03/27/17 07:00 APTT 27 SECONDS (21-34) 03/27/17 07:00 - Constitutional Appears: In Acute Distress, Chronically Ill - Head Exam Head Exam: ATRAUMATIC, NORMAL INSPECTION, NORMOCEPHALIC - Eye Exam Eye Exam: Normal appearance - ENT Exam ENT Exam: Mucous Membranes Moist, Normal Exam - Neck Exam Neck Exam: Normal Inspection - Respiratory Exam Respiratory Exam: Prolonged Expiratory Phase, Rhonchi - Cardiovascular Exam Cardiovascular Exam: Tachycardia, REGULAR RHYTHM, +S1, +S2 - GI/Abdominal Exam GI & Abdominal Exam: Firm (POST OP) Assessment and Plan (1) Anemia Assessment & Plan: MASS IN COLON, FOR OR Status: Acute (2) COPD (chronic obstructive pulmonary disease) with emphysema Status: Acute (3) Allergic rhinitis Status: Chronic (4) Diabetes Status: Chronic
[2017-03-27] MEDS: Ciprofloxacin 400mg/200ml D5W 400 MG/200 ML BAG IVPB SCH (23:36)
--- NOTE | 2017-03-27 23:36 | CON ---
DATE: 03/20/2017 CHIEF COMPLAINT: Colon tumor. HISTORY OF PRESENT ILLNESS: This patient is scheduled for low anterior resection today by Dr. Nieto. Dr. Nieto called me and asked if it would be advisable to place ureteral catheters. REVIEW OF SYSTEMS: RESPIRATORY: The patient has significant COPD. GASTROINTESTINAL: The patient has had anemia and been worked up and found to have a low sigmoid tumor. CARDIAC: The patient has no history of chest pain or palpitations. ORTHOPEDIC: The patient has no history of orthopedic complaints. INTEGUMENTARY: The patient has no skin complaints. NEUROLOGICAL: History is also negative. IMPRESSION: Low sigmoid tumor. PLAN: I discussed this with Dr. Lucho Nieto, and based on the location of the tumor and the proposed surgery, it seems reasonable to place ureteral catheters and the decision was made to proceed with cystoscopy and insertion of double-J catheters. Thomas Chong MD
--- NOTE | 2017-03-28 00:40 | OP ---
PROCEDURE DATE: 03/20/2017 PREOPERATIVE DIAGNOSIS: Colon tumor. POSTOPERATIVE DIAGNOSIS: Colon tumor. PROCEDURE: Cystoscopy and insertion of ureteral catheters and insertion of Warren Calderon catheter. PROCEDURE: Prior to the procedure in detail, the informed consent was obtained and a consultation with Dr. Lucho Nieto, the operative surgeon was carried out. The patient was brought into the room, identified and received prophylactic antibiotics. He was cystoscoped with #21 *------*. The urethra was normal. The prostatic urethra showed minimal to moderate outlet obstruction. The bladder was entered atraumatically. There right ureteral orifice was localized and cannulized with a 0.38 guidewire. An open-ended ureteral catheter was passed above it and positioned in the renal pelvis. The procedure was then repeated on the opposite side. Fluoroscopy showed that both ureteral catheters were positioned in the kidney. The scope was then backed out holding the ureteral catheters to prevent them from being dislodge and #18 Warren catheter was inserted. The ureteral catheters were inserted in the proper wings of the Warren catheter, and they were further fixed to the catheter with a silk suture. The patient tolerated this procedure well. I discussed with Dr. Nieto. He will remove them if they are not necessary after surgery. Thomas Chong MD
[2017-03-28] MEDS: Albuterol-Ipratrop 3 mg / 0.5 (3 ml) UD INH SCH ×5 (01:36→19:17)
[2017-03-28] MEDS: HYDROmorphone 0.5 mg/0.5 ml ISec IVP PRN ×5 (02:24→20:33)
--- NOTE | 2017-03-28 03:52 | OP ---
PROCEDURE DATE: PREOPERATIVE DIAGNOSIS: Multiple rectosigmoid polyps. POSTOPERATIVE DIAGNOSIS: Multiple rectosigmoid polyps. PROCEDURE CARRIED OUT: Low anterior resection with protective ileostomy. SURGEON: Lucho Nieto Jr., MD TABLE HAND: Dr. Steven and Dr. Campos ANESTHESIOLOGIST: Geovanny Zepeda MD The patient is an elderly male with severe chronic lung disease, presents with bleeding, subsequently found to have a large polyp 4 cm or more in the rectal area, but not palpable to my finger and in addition 2 other polyps above this. OPERATIVE FINDINGS: We carried out 29 EEA anastomosis to the rectum, which was airtight on insufflation to the rectum. We also however carried out a protective ileostomy in the right lower quadrant due to the fact that the patient is on chronic steroid use and there is a poor bowel prep. DESCRIPTION OF PROCEDURE: The patient was given general anesthesia and intravenous antibiotics. Venodyne boots were applied. Midline incision was carried out. A Bookwalter retractor was inserted. After adequate mobilization had been carried out, we then dissected out the pelvic tumor. Dr. Chong had previously placed ureteral catheters. We able to dissect down to below the tumor and after this was done, we placed a Contour stapler in the rectum divided this. We previously placed a BRODERICK stapler above. We checked again the ureters at this point and both are intact. We then divided the rectum and removed the specimen. Specimen was opened to confirm the large meatball-size tumor distally and 2 small polyps including one that had clips on. After this had been done, we then checked for an air leak from the rectum and there was none. We then carried out a 29 EEA anastomosis to the rectum, which was airtight and check down to water. However, due to the patient's pre-existing chronic lung disease due to the fact that he is on steroids and there was relatively bowel prep despite all are wash out and we then did protective ileostomy in the right lower quadrant. We then closed the abdomen in a running sutures of PDS, we also placed retention sutures due to his lung condition. The patient's blood loss procedure is less than 100 mL. There were no operative complications. The ureteral catheter was removed at the end of the procedure. The operation carried down, low anterior resection with protective ileostomy. Lucho Nieto Jr., MD cc: MD Dr. Jose Anthony MD
[2017-03-28] MEDS: Lactated Ringer's 1,000 ML IV SCH ×3 (05:34→22:22)
[2017-03-28 05:48] LABS: ARTERIAL BLOOD HGB O2 SAT 95.8 % (95.0-98.0); CARBOXYHEMOGLOBIN 0.1 % (0.5-1.5); DRAW SITE ALINE; HHB 4.1 % (0.0-5.0)
[2017-03-28] MEDS: (Novolin R) Insulin Human Regular 100 units/ml vial SC SCH ×3 (06:00→18:45)
[2017-03-28 06:54] LABS: BASO # 0.1 K/uL (0.0-0.2); BASO % 0.4 % (0.0-2.0); EOS % 0.1 % (0.0-4.0); HEMATOCRIT 29.2 % (35.0-51.0); LYMPH # 1.2 K/uL (1.0-4.3); LYMPH % 6.5 % (20.0-40.0); MEAN CELL VOLUME 66.4 fL (80.0-94.0); MEAN CORPUSCULAR HEMOGLOBIN 19.4 pg (27.0-31.0); MEAN CORPUSCULAR HGB CONC 29.3 g/dL (33.0-37.0); MEAN PLATELET VOLUME 9.1 fL (7.2-11.7); MONO # 1.2 K/uL (0.0-0.8); PLATELET COUNT 268 K/uL (130-400); RED CELL DISTRIBUTION WIDTH 29.7 % (11.5-14.5); WHITE BLOOD COUNT 17.9 K/uL (4.8-10.8)
[2017-03-28 07:10] LABS: CHLORIDE 98 mmol/L (98-107); SODIUM 135 mmol/L (132-148)
[2017-03-28 07:12] LABS: ALB/GLOB RATIO 1.3 (1.0-2.1); AST/SGOT 49 U/L (17-59); BILIRUBIN,TOTAL 0.5 mg/dL (0.2-1.3); CARBON DIOXIDE 27 mmol/L (22-30); GFR AFRICAN-AMERICAN > 60; TOTAL PROTEIN 5.4 g/dL (6.3-8.3)
[2017-03-28 07:13] LABS: ALKALINE PHOSPHATASE 76 U/L (38-126); ALT/SGPT 86 U/L (21-72); BLOOD UREA NITROGEN 9 mg/dL (9-20); GLUCOSE,RANDOM 125 mg/dL (75-110); PHOSPHOROUS 3.7 mg/dL (2.5-4.5)
[2017-03-28 07:14] LABS: MAGNESIUM 1.6 mg/dL (1.6-2.3)
--- NOTE | 2017-03-28 08:24 | CP.PCM.PN ---
Subjective - Date & Time of Evaluation Date of Evaluation: 03/28/17 Time of Evaluation: 08:24 - Subjective Subjective: condition stable Objective - Vital Signs/Intake and Output Vital Signs (last 24 hours): Temp Pulse Resp BP Pulse Ox 98.1 F 117 H 18 108/80 98 03/28/17 04:00 03/28/17 05:00 03/28/17 05:00 03/28/17 05:00 03/28/17 05:00 Intake and Output: 03/28/17 03/28/17 06:59 18:59 Intake Total 1475 Output Total 835 Balance 640 - Medications Medications: Current Medications Albuterol/Ipratropium (Duoneb 3 Mg/0.5 Mg (3 Ml) Ud) 3 ml INH RQ6 [facility] Last Admin: 03/28/17 06:42 Dose: 3 ml Alprazolam (Xanax) 0.5 mg PO BID PRN PRN Reason: Anxiety Last Admin: 03/26/17 22:06 Dose: 0.5 mg Budesonide (Pulmicort Respules) 0.5 mg INH RBID [facility] Last Admin: 03/27/17 19:26 Dose: Not Given Docusate Sodium (Colace) 100 mg PO BID [facility] Last Admin: 03/27/17 18:25 Dose: Not Given Ferric Sodium Gluconate Complex (Ferrlecit) 125 mg IVPB Q24H [facility] Stop: 03/28/17 17:01 Last Admin: 03/27/17 18:20 Dose: 125 mg Fluconazole (Diflucan) 100 mg PO DAILY [facility] Last Admin: 03/27/17 10:29 Dose: Not Given Guaifenesin (Mucinex La) 600 mg PO BID [facility] Last Admin: 03/27/17 18:23 Dose: Not Given Heparin Sodium (Porcine) (Heparin) 5,000 units SC Q12H [facility] Last Admin: 03/27/17 18:23 Dose: Not Given Home Med (Patient's Own Inhalation Solution) 1 ml INH RBID [facility] Last Admin: 03/26/17 13:05 Dose: Not Given Hydromorphone HCl (Dilaudid) 0.5 mg IVP Q2H PRN PRN Reason: Pain, severe (8-10) Last Admin: 03/28/17 05:37 Dose: 0.5 mg Lactated Ringer's (Lactated Ringer's) 1,000 mls @ 100 mls/hr IV .Q10H [facility] Last Admin: 03/28/17 05:34 Dose: Not Given Ciprofloxacin (Cipro 400mg/200ml Dsw) 400 mg in 200 mls @ 133 mls/hr IVPB Q12H [facility] Stop: 03/28/17 12:51 Last Admin: 03/27/17 23:36 Dose: 133 mls/hr Metronidazole (Flagyl) 500 mg in 100 mls @ 100 mls/hr IVPB Q8H [facility] Stop: 03/28/17 14:59 Last Admin: 03/27/17 21:56 Dose: 100 mls/hr Insulin Glargine (Lantus) 16 unit SC [facility] Last Admin: 03/26/17 22:06 Dose: Not Given Insulin Human Regular (Novolin R) 0 unit SC Q6H [facility] PRN Reason: Protocol Last Admin: 03/28/17 06:00 Dose: Not Given Metformin HCl (Glucophage) 1,000 mg PO BID [facility] Last Admin: 03/27/17 18:23 Dose: Not Given Methylprednisolone (Solu-Medrol) 40 mg IVP DAILY [facility] Last Admin: 03/27/17 10:36 Dose: 40 mg Montelukast Sodium (Singulair) 10 mg PO HS [facility] Last Admin: 03/27/17 21:54 Dose: Not Given Ondansetron HCl (Zofran Inj) 4 mg IVP Q4 PRN PRN Reason: Nausea/Vomiting Pantoprazole Sodium (Protonix Inj) 40 mg IVP DAILY [facility] Polyethylene Glycol (Miralax) 17 gm PO DAILY [facility] Last Admin: 03/25/17 09:25 Dose: 17 gm Pregabalin (Lyrica) 50 mg PO BID [facility] Last Admin: 03/27/17 18:23 Dose: Not Given Roflumilast (Daliresp) 500 mcg PO DAILY [facility] Last Admin: 03/27/17 10:28 Dose: Not Given Fluticasone/Salmeterol (Advair Diskus 250/50) 1 puff INH RBID [facility] Last Admin: 03/27/17 19:25 Dose: Not Given Vitamin B Complex/Vitamin C (Berocca) 1 tab PO DAILY [facility] Last Admin: 03/27/17 10:29 Dose: Not Given - Labs Labs: 03/28/17 06:40 03/28/17 06:40 PT 11.7 SECONDS (9.7-12.2) 03/27/17 07:00 INR 1.0 03/27/17 07:00 APTT 27 SECONDS (21-34) 03/27/17 07:00
[2017-03-28] MEDS: Budesonide 0.5 mg/2 ml Inhal Susp UD INH SCH (08:31)
[2017-03-28 09:03] LABS: METAMYELOCYTE 1 % (0-0); NEUTROPHIL 71 % (50-75); TOTAL CELLS COUNTED 100
[2017-03-28] MEDS: MethylPREDNISolone 40 mg Vial IVP SCH (10:30)
[2017-03-28] MEDS: (Novolog) Insulin Aspart, Recombinant 100 u/ml 10 ml vial SC SCH ×2 (11:19→11:20)
[2017-03-28] MEDS: Fluticasone-Salmeterol 250-50mcg Diskus INH SCH (11:19)
[2017-03-28] MEDS: BROVANA 15 MCG/2 ML INH SCH ×3 (11:21→22:24)
[2017-03-28] MEDS: metroNIDAZOLE IV 500 mg/100 ml 500 MG/100 ML BAG IVPB SCH ×2 (11:32→14:59)
[2017-03-28] MEDS: Vitamin B Complex/Vitamin C Tab PO SCH (11:42)
[2017-03-28] MEDS: guaiFENesin 600 mg ER Tab PO SCH ×2 (11:42→17:48)
[2017-03-28] MEDS: Ciprofloxacin 400mg/200ml D5W 400 MG/200 ML BAG IVPB SCH (11:52)
--- NOTE | 2017-03-28 16:40 | CP.CCUPN ---
<Melody Bower - Last Filed: 03/28/17 16:38> CCU Subjective - Physician Review Subjective (Free Text): Patient was seen and examined at bedside in the morning. Patient reports having pain in his abdomen and surgical site. Patient also reports still feeling short of breath. Patient denies having chest pain, cough, dizziness, fevers, nausea, vomiting, and headaches. 03/28/17 16:38 CCU Objective - Vital Signs / Intake & Output Intake and Output (Last 8hrs): Intake & Output 03/28/17 03/28/17 03/28/17 06:59 14:59 22:59 Intake Total 1100 200 Output Total 915 205 Balance 185 -5 Weight 171 lb Intake: Intake, IV Amount 1100 200 Right Wrist 1100 200 Output: Gastric Amount 0 0 Left Nares 0 0 Drainage 55 30 Left Abdomen 25 Right Abdomen 30 30 Urine 860 175 Urethral ([place]) 860 175 Other: # Bowel Movements 0 0 - Physical Exam Head: Positive for: Atraumatic, Normocephalic, Ecchymosis (periorbital eccyhmosis and swelling) Extroacular Muscles: Positive for: EOMI Mouth: Positive for: Moist Mucous Membranes Respiratory/Chest: Positive for: Wheezes, Decreased Breath Sounds, Tachypneic. Negative for: Rales Cardiovascular: Positive for: Normal S1, S2, Peripheal Pulses Present, Tachycardic Abdomen: Positive for: Tenderness, Other (s/p surgery, bandaging, ileostomy bag and drain placed). Negative for: Normal Bowel Sounds (decreased) Upper Extremity: Positive for: Normal Inspection. Negative for: Edema Lower Extremity: Positive for: Edema. Negative for: Normal Inspection, Cyanosis Skin: Positive for: Warm, Dry, Normal Color Psychiatric: Positive for: Alert, Oriented x 3, Normal Affect - Medications Active Medications: Active Medications Generic Name Dose Route Start Last Admin Trade Name Freq PRN Reason Stop Dose Admin Albuterol/Ipratropium 3 ml 03/25/17 14:00 03/28/17 13:02 Duoneb 3 Mg/0.5 Mg (3 Ml) Ud INH Not Given RQ6 [facility] Alprazolam 0.5 mg 03/26/17 09:55 03/26/17 22:06 Xanax PO 0.5 mg BID PRN Administration Anxiety Docusate Sodium 100 mg 03/19/17 18:00 03/28/17 11:42 Colace PO Not Given BID [facility] Ferric Sodium Gluconate Complex 125 mg 03/23/17 17:00 03/27/17 18:20 Ferrlecit IVPB 03/28/17 17:01 125 mg Q24H [facility] Administration Fluconazole 100 mg 03/24/17 10:00 03/28/17 11:42 Diflucan PO Not Given DAILY [facility] Guaifenesin 600 mg 03/19/17 10:00 03/28/17 11:42 Mucinex La PO Not Given BID [facility] Heparin Sodium (Porcine) 5,000 units 03/27/17 18:00 03/27/17 18:23 Heparin SC Not Given Q12H [facility] Home Med 1 ml 03/19/17 08:00 03/28/17 11:22 Patient's Own Inhalation Solution INH Not Given RBID [facility] Hydromorphone HCl 0.5 mg 03/27/17 17:33 03/28/17 14:59 Dilaudid IVP 0.5 mg Q2H PRN Administration Pain, severe (8-10) Lactated Ringer's 1,000 mls @ 100 mls/hr 03/27/17 16:15 03/28/17 11:58 Lactated Ringer's IV 100 mls/hr .Q10H [facility] Administration Insulin Glargine 16 unit 03/19/17 22:00 03/26/17 22:06 Lantus SC Not Given HS [facility] Insulin Human Regular 0 unit 03/28/17 06:00 03/28/17 14:29 Novolin R SC Not Given Q6H [facility] Protocol Lorazepam 0.5 mg 03/28/17 10:17 03/28/17 12:01 Ativan IVP 0.5 mg Q6H PRN Administration Anxiety Metformin HCl 1,000 mg 03/19/17 10:00 03/28/17 11:42 Glucophage PO Not Given BID [facility] Methylprednisolone 40 mg 03/21/17 10:00 03/28/17 10:30 Solu-Medrol IVP 40 mg DAILY [facility] Administration Montelukast Sodium 10 mg 03/19/17 22:00 03/27/17 21:54 Singulair PO Not Given HS [facility] Ondansetron HCl 4 mg 03/27/17 16:12 Zofran Inj IVP Q4 PRN Nausea/Vomiting Pantoprazole Sodium 40 mg 03/28/17 10:00 03/28/17 10:30 Protonix Inj IVP 40 mg DAILY [facility] Administration Polyethylene Glycol 17 gm 03/20/17 10:00 03/25/17 09:25 Miralax PO 17 gm DAILY [facility] Administration Pregabalin 50 mg 03/22/17 21:45 03/28/17 11:42 Lyrica PO Not Given BID [facility] Roflumilast 500 mcg 03/19/17 10:00 03/28/17 11:42 Daliresp PO Not Given DAILY [facility] Vitamin B Complex/Vitamin C 1 tab 03/19/17 10:00 03/28/17 11:42 Berocca PO Not Given DAILY [facility] - Patient Studies Lab Studies: Lab Studies 03/28/17 03/28/17 03/28/17 Range/Units 11:19 06:40 06:40 WBC 17.9 H (4.8-10.8) K/uL RBC 4.40 (4.40-5.90) Mil/uL Hgb 8.6 L (12.0-18.0) g/dL Hct 29.2 L (35.0-51.0) % MCV 66.4 L (80.0-94.0) fL MCH 19.4 L (27.0-31.0) pg MCHC 29.3 L (33.0-37.0) g/dL RDW 29.7 H (11.5-14.5) % Plt Count 268 (130-400) K/uL MPV 9.1 (7.2-11.7) fL Neut % (Auto) 86.0 H (50.0-75.0) % Lymph % (Auto) 6.5 L (20.0-40.0) % [place] % (Auto) 7.0 (0.0-10.0) % Eos % (Auto) 0.1 (0.0-4.0) % Baso % (Auto) 0.4 (0.0-2.0) % Neut # 15.4 H (1.8-7.0) K/uL Lymph # 1.2 (1.0-4.3) K/uL [place] # 1.2 H (0.0-0.8) K/uL Eos # 0.0 (0.0-0.7) K/uL Baso # 0.1 (0.0-0.2) K/uL Neutrophils % (Manual) 71 (50-75) % Band Neutrophils % 10 H (0-2) % Lymphocytes % (Manual) 12 L (20-40) % Monocytes % (Manual) 6 (0-10) % Metamyelocytes % 1 H (0-0) % Platelet Estimate Normal (NORMAL) Hypochromasia (manual) Moderate Poikilocytosis (manual Anisocytosis (manual) Moderate Microcytosis (manual) Moderate Ovalocytes Moderate Schistocytes Puncture Site pCO2 (35-45) mm/Hg pO2 (80-100) mm/Hg HCO3 (21-28) mmol/L ABG pH (7.35-7.45) ABG Total CO2 (22-28) mmol/L ABG O2 Saturation (95-98) % ABG Base Excess (-2.0-3.0) mmol/L ABG Hemoglobin (11.7-17.4) g/dL ABG Carboxyhemoglobin (0.5-1.5) % POC ABG HHb (Measured) (0.0-5.0) % ABG Methemoglobin (0.0-3.0) % Jesus Test Hgb O2 Saturation (95.0-98.0) % Liter Flow Sodium 135 (132-148) mmol/L Potassium 4.0 (3.6-5.2) mmol/L Chloride 98 (98-107) mmol/L Carbon Dioxide 27 (22-30) mmol/L Anion Gap 14 (10-20) BUN 9 (9-20) mg/dL Creatinine 0.7 L (0.8-1.5) MG/DL Est GFR ( Amer) > 60 Est GFR (Non-Af Amer) > 60 POC Glucose (mg/dL) 161 H (65-110) mg/dL Random Glucose 125 H (75-110) mg/dL Calcium 8.0 L (8.6-10.4) mg/dl Phosphorus 3.7 (2.5-4.5) mg/dL Magnesium 1.6 (1.6-2.3) mg/dL Total Bilirubin 0.5 (0.2-1.3) mg/dL AST 49 (17-59) U/L ALT 86 H D (21-72) U/L Alkaline Phosphatase 76 (38-126) U/L Total Protein 5.4 L (6.3-8.3) g/dL Albumin 3.0 L (3.5-5.0) g/dL Globulin 2.4 (2.2-3.9) gm/dL Albumin/Globulin Ratio 1.3 (1.0-2.1) 03/28/17 03/28/17 03/27/17 Range/Units 06:00 05:06 18:46 WBC 25.1 H D (4.8-10.8) K/uL RBC 4.60 (4.40-5.90) Mil/uL Hgb 9.0 L (12.0-18.0) g/dL Hct 30.0 L (35.0-51.0) % MCV 65.1 L (80.0-94.0) fL MCH 19.5 L (27.0-31.0) pg MCHC 29.9 L (33.0-37.0) g/dL RDW 28.4 H (11.5-14.5) % Plt Count 311 (130-400) K/uL MPV 8.7 (7.2-11.7) fL Neut % (Auto) 94.3 H (50.0-75.0) % Lymph % (Auto) 1.1 L (20.0-40.0) % [place] % (Auto) 4.2 (0.0-10.0) % Eos % (Auto) 0.0 (0.0-4.0) % Baso % (Auto) 0.4 (0.0-2.0) % Neut # 23.6 H (1.8-7.0) K/uL Lymph # 0.3 L (1.0-4.3) K/uL [place] # 1.1 H (0.0-0.8) K/uL Eos # 0.0 (0.0-0.7) K/uL Baso # 0.1 (0.0-0.2) K/uL Neutrophils % (Manual) 80 H (50-75) % Band Neutrophils % 17 H* (0-2) % Lymphocytes % (Manual) 1 L (20-40) % Monocytes % (Manual) 1 (0-10) % Metamyelocytes % 1 H (0-0) % Platelet Estimate Normal (NORMAL) Hypochromasia (manual) Moderate Poikilocytosis (manual Slight Anisocytosis (manual) Slight Microcytosis (manual) Slight Ovalocytes Schistocytes Slight Puncture Site [place] pCO2 52 H (35-45) mm/Hg pO2 125 H (80-100) mm/Hg HCO3 30.0 H (21-28) mmol/L ABG pH 7.40 (7.35-7.45) ABG Total CO2 33.8 H (22-28) mmol/L ABG O2 Saturation 95.9 (95-98) % ABG Base Excess 6.5 H (-2.0-3.0) mmol/L ABG Hemoglobin 8.9 L (11.7-17.4) g/dL ABG Carboxyhemoglobin 0.1 L (0.5-1.5) % POC ABG HHb (Measured) 4.1 (0.0-5.0) % ABG Methemoglobin 0.0 (0.0-3.0) % Jesus Test Na Hgb O2 Saturation 95.8 (95.0-98.0) % Liter Flow 6.0 Sodium (132-148) mmol/L Potassium (3.6-5.2) mmol/L Chloride (98-107) mmol/L Carbon Dioxide (22-30) mmol/L Anion Gap (10-20) BUN (9-20) mg/dL Creatinine (0.8-1.5) MG/DL Est GFR ( Amer) Est GFR (Non-Af Amer) POC Glucose (mg/dL) 142 H (65-110) mg/dL Random Glucose (75-110) mg/dL Calcium (8.6-10.4) mg/dl Phosphorus (2.5-4.5) mg/dL Magnesium (1.6-2.3) mg/dL Total Bilirubin (0.2-1.3) mg/dL AST (17-59) U/L ALT (21-72) U/L Alkaline Phosphatase (38-126) U/L Total Protein (6.3-8.3) g/dL Albumin (3.5-5.0) g/dL Globulin (2.2-3.9) gm/dL Albumin/Globulin Ratio (1.0-2.1) 03/27/17 03/27/17 Range/Units 18:46 16:41 WBC (4.8-10.8) K/uL RBC (4.40-5.90) Mil/uL Hgb (12.0-18.0) g/dL Hct (35.0-51.0) % MCV (80.0-94.0) fL MCH (27.0-31.0) pg MCHC (33.0-37.0) g/dL RDW (11.5-14.5) % Plt Count (130-400) K/uL MPV (7.2-11.7) fL Neut % (Auto) (50.0-75.0) % Lymph % (Auto) (20.0-40.0) % [place] % (Auto) (0.0-10.0) % Eos % (Auto) (0.0-4.0) % Baso % (Auto) (0.0-2.0) % Neut # (1.8-7.0) K/uL Lymph # (1.0-4.3) K/uL [place] # (0.0-0.8) K/uL Eos # (0.0-0.7) K/uL Baso # (0.0-0.2) K/uL Neutrophils % (Manual) (50-75) % Band Neutrophils % (0-2) % Lymphocytes % (Manual) (20-40) % Monocytes % (Manual) (0-10) % Metamyelocytes % (0-0) % Platelet Estimate (NORMAL) Hypochromasia (manual) Poikilocytosis (manual Anisocytosis (manual) Microcytosis (manual) Ovalocytes Schistocytes Puncture Site pCO2 (35-45) mm/Hg pO2 (80-100) mm/Hg HCO3 (21-28) mmol/L ABG pH (7.35-7.45) ABG Total CO2 (22-28) mmol/L ABG O2 Saturation (95-98) % ABG Base Excess (-2.0-3.0) mmol/L ABG Hemoglobin (11.7-17.4) g/dL ABG Carboxyhemoglobin (0.5-1.5) % POC ABG HHb (Measured) (0.0-5.0) % ABG Methemoglobin (0.0-3.0) % Jesus Test Hgb O2 Saturation (95.0-98.0) % Liter Flow Sodium 133 (132-148) mmol/L Potassium 4.7 (3.6-5.2) mmol/L Chloride 97 L (98-107) mmol/L Carbon Dioxide 27 (22-30) mmol/L Anion Gap 13 (10-20) BUN 8 L (9-20) mg/dL Creatinine 0.7 L (0.8-1.5) MG/DL Est GFR ( Amer) > 60 Est GFR (Non-Af Amer) > 60 POC Glucose (mg/dL) 269 H (65-110) mg/dL Random Glucose 267 H (75-110) mg/dL Calcium 7.9 L (8.6-10.4) mg/dl Phosphorus (2.5-4.5) mg/dL Magnesium (1.6-2.3) mg/dL Total Bilirubin (0.2-1.3) mg/dL AST (17-59) U/L ALT (21-72) U/L Alkaline Phosphatase (38-126) U/L Total Protein (6.3-8.3) g/dL Albumin (3.5-5.0) g/dL Globulin (2.2-3.9) gm/dL Albumin/Globulin Ratio (1.0-2.1) Laboratory Results - last 24 hr 03/27/17 03/27/17 03/27/17 16:41 18:46 18:46 WBC 25.1 H D RBC 4.60 Hgb 9.0 L Hct 30.0 L MCV 65.1 L MCH 19.5 L MCHC 29.9 L RDW 28.4 H Plt Count 311 MPV 8.7 Neut % (Auto) 94.3 H Lymph % (Auto) 1.1 L [place] % (Auto) 4.2 Eos % (Auto) 0.0 Baso % (Auto) 0.4 Neut # 23.6 H Lymph # 0.3 L [place] # 1.1 H Eos # 0.0 Baso # 0.1 Neutrophils % (Manual) 80 H Band Neutrophils % 17 H* Lymphocytes % (Manual) 1 L Monocytes % (Manual) 1 Metamyelocytes % 1 H Platelet Estimate Normal Hypochromasia (manual) Moderate Poikilocytosis (manual Slight Anisocytosis (manual) Slight Microcytosis (manual) Slight Ovalocytes Schistocytes Slight Puncture Site pCO2 pO2 HCO3 ABG pH ABG Total CO2 ABG O2 Saturation ABG Base Excess ABG Hemoglobin ABG Carboxyhemoglobin POC ABG HHb (Measured) ABG Methemoglobin Jesus Test Hgb O2 Saturation Liter Flow Sodium 133 Potassium 4.7 Chloride 97 L Carbon Dioxide 27 Anion Gap 13 BUN 8 L Creatinine 0.7 L Est GFR ( Amer) > 60 Est GFR (Non-Af Amer) > 60 POC Glucose (mg/dL) 269 H Random Glucose 267 H Calcium 7.9 L Phosphorus Magnesium Total Bilirubin AST ALT Alkaline Phosphatase Total Protein Albumin Globulin Albumin/Globulin Ratio 03/28/17 03/28/17 03/28/17 05:06 06:00 06:40 WBC 17.9 H RBC 4.40 Hgb 8.6 L Hct 29.2 L MCV 66.4 L MCH 19.4 L MCHC 29.3 L RDW 29.7 H Plt Count 268 MPV 9.1 Neut % (Auto) 86.0 H Lymph % (Auto) 6.5 L [place] % (Auto) 7.0 Eos % (Auto) 0.1 Baso % (Auto) 0.4 Neut # 15.4 H Lymph # 1.2 [place] # 1.2 H Eos # 0.0 Baso # 0.1 Neutrophils % (Manual) 71 Band Neutrophils % 10 H Lymphocytes % (Manual) 12 L Monocytes % (Manual) 6 Metamyelocytes % 1 H Platelet Estimate Normal Hypochromasia (manual) Moderate Poikilocytosis (manual Anisocytosis (manual) Moderate Microcytosis (manual) Moderate Ovalocytes Moderate Schistocytes Puncture Site [place] pCO2 52 H pO2 125 H HCO3 30.0 H ABG pH 7.40 ABG Total CO2 33.8 H ABG O2 Saturation 95.9 ABG Base Excess 6.5 H ABG Hemoglobin 8.9 L ABG Carboxyhemoglobin 0.1 L POC ABG HHb (Measured) 4.1 ABG Methemoglobin 0.0 Jesus Test Na Hgb O2 Saturation 95.8 Liter Flow 6.0 Sodium Potassium Chloride Carbon Dioxide Anion Gap BUN Creatinine Est GFR ( Amer) Est GFR (Non-Af Amer) POC Glucose (mg/dL) 142 H Random Glucose Calcium Phosphorus Magnesium Total Bilirubin AST ALT Alkaline Phosphatase Total Protein Albumin Globulin Albumin/Globulin Ratio 03/28/17 03/28/17 06:40 11:19 WBC RBC Hgb Hct MCV MCH MCHC RDW Plt Count MPV Neut % (Auto) Lymph % (Auto) [place] % (Auto) Eos % (Auto) Baso % (Auto) Neut # Lymph # [place] # Eos # Baso # Neutrophils % (Manual) Band Neutrophils % Lymphocytes % (Manual) Monocytes % (Manual) Metamyelocytes % Platelet Estimate Hypochromasia (manual) Poikilocytosis (manual Anisocytosis (manual) Microcytosis (manual) Ovalocytes Schistocytes Puncture Site pCO2 pO2 HCO3 ABG pH ABG Total CO2 ABG O2 Saturation ABG Base Excess ABG Hemoglobin ABG Carboxyhemoglobin POC ABG HHb (Measured) ABG Methemoglobin Jesus Test Hgb O2 Saturation Liter Flow Sodium 135 Potassium 4.0 Chloride 98 Carbon Dioxide 27 Anion Gap 14 BUN 9 Creatinine 0.7 L Est GFR ( Amer) > 60 Est GFR (Non-Af Amer) > 60 POC Glucose (mg/dL) 161 H Random Glucose 125 H Calcium 8.0 L Phosphorus 3.7 Magnesium 1.6 Total Bilirubin 0.5 AST 49 ALT 86 H D Alkaline Phosphatase 76 Total Protein 5.4 L Albumin 3.0 L Globulin 2.4 Albumin/Globulin Ratio 1.3 EKG/Cardiology Studies: Cardiology / EKG Studies 03/27/17 17:38 ELECTROCARDIOGRAM Routine Comment: Mode Of Transportation: PORTABLE Reason For Exam: POST OP Fingerstick Blood Sugar Results: 142 Review of Systems - Constitutional Constitutional: absent: Fever - Cardiovascular Cardiovascular: Dyspnea. absent: Chest Pain - Respiratory Respiratory: Dyspnea, Pain with Coughing. absent: Cough - Gastrointestinal Gastrointestinal: Abdominal Pain, Constipation, Diarrhea, Nausea, Vomiting - Neurological Neurological: absent: Dizziness, Headaches Critical Care Progress Note - Nutrition Nutrition: Nutrition Category Date Time Status NPO Diet [DIET] Diets 03/26/17 Dinner Active Assessment/Plan - Assessment and Plan (Free Text) Assessment: 66 year old male with medical history of COPD with emphysema, asthma, DM, and anemia, presents to the ICU s/p resection with loop ileostomy of two tubulovillous adenomas (with Dr. Nieto). Neuro: alert, agitated due to pain (less than yesterday) - Dilaudid for pain - Continue Xanax, Ativan prn Pulm: Hx of COPD w/emphysema, Asthma - Continue Solumedrol, Duonebs, daliresp, robitussin - BiPAP at night, prn (Hx of sleep apnea) - Incentive spirometry CV: Hemodynamically stable - Continue lactated ringers 1000ml @100ml/hr - Monitor Endo: Hx of DM - Monitor blood glucose - Continue ISS, Metformin, Lantus GI: s/p resection with loop ileostomy of tubulovillous adenoma x2 (in sigmoid and rectosigmoid) - Hx of GI bleed, 5 polyps total - Dilaudid for pain Heme: Hx of GI bleed, anemia - Monitor H/H - Repeat CBC: Hgb 8.6 Renal: no acute issues - Monitor kidney function ID: Leukocytosis - Continue Ciprofloxacin and Flagyl - Leukocytosis is improving, WBC decreased from 25.1 to 17.9 Prophylaxis: - DVT: hold Heparin s/p surgery - GI: Protonix <Ralf Nuno S - Last Filed: 03/28/17 17:10> CCU Objective - Vital Signs / Intake & Output Intake and Output (Last 8hrs): Intake & Output 03/28/17 03/28/17 03/28/17 06:59 14:59 22:59 Intake Total 1100 200 Output Total 915 205 Balance 185 -5 Weight 171 lb Intake: Intake, IV Amount 1100 200 Right Wrist 1100 200 Output: Gastric Amount 0 0 Left Nares 0 0 Drainage 55 30 Left Abdomen 25 Right Abdomen 30 30 Urine 860 175 Urethral ([place]) 860 175 Other: # Bowel Movements 0 0 - Medications Active Medications: Active Medications Generic Name Dose Route Start Last Admin Trade Name Freq PRN Reason Stop Dose Admin Albuterol/Ipratropium 3 ml 03/25/17 14:00 03/28/17 13:02 Duoneb 3 Mg/0.5 Mg (3 Ml) Ud INH Not Given RQ6 [facility] Alprazolam 0.5 mg 03/26/17 09:55 03/26/17 22:06 Xanax PO 0.5 mg BID PRN Administration Anxiety Docusate Sodium 100 mg 03/19/17 18:00 03/28/17 11:42 Colace PO Not Given BID [facility] Fluconazole 100 mg 03/24/17 10:00 03/28/17 11:42 Diflucan PO Not Given DAILY [facility] Guaifenesin 600 mg 03/19/17 10:00 03/28/17 11:42 Mucinex La PO Not Given BID [facility] Heparin Sodium (Porcine) 5,000 units 03/27/17 18:00 03/27/17 18:23 Heparin SC Not Given Q12H [facility] Home Med 1 ml 03/19/17 08:00 03/28/17 11:22 Patient's Own Inhalation Solution INH Not Given RBID [facility] Hydromorphone HCl 0.5 mg 03/27/17 17:33 03/28/17 14:59 Dilaudid IVP 0.5 mg Q2H PRN Administration Pain, severe (8-10) Lactated Ringer's 1,000 mls @ 100 mls/hr 03/27/17 16:15 03/28/17 11:58 Lactated Ringer's IV 100 mls/hr .Q10H [facility] Administration Insulin Glargine 16 unit 03/19/17 22:00 03/26/17 22:06 Lantus SC Not Given HS [facility] Insulin Human Regular 0 unit 03/28/17 06:00 03/28/17 14:29 Novolin R SC Not Given Q6H [facility] Protocol Lorazepam 0.5 mg 03/28/17 10:17 03/28/17 12:01 Ativan IVP 0.5 mg Q6H PRN Administration Anxiety Metformin HCl 1,000 mg 03/19/17 10:00 03/28/17 11:42 Glucophage PO Not Given BID [facility] Methylprednisolone 40 mg 03/21/17 10:00 03/28/17 10:30 Solu-Medrol IVP 40 mg DAILY [facility] Administration Montelukast Sodium 10 mg 03/19/17 22:00 03/27/17 21:54 Singulair PO Not Given HS [facility] Ondansetron HCl 4 mg 03/27/17 16:12 Zofran Inj IVP Q4 PRN Nausea/Vomiting Pantoprazole Sodium 40 mg 03/28/17 10:00 03/28/17 10:30 Protonix Inj IVP 40 mg DAILY [facility] Administration Polyethylene Glycol 17 gm 03/20/17 10:00 03/25/17 09:25 Miralax PO 17 gm DAILY [facility] Administration Pregabalin 50 mg 03/22/17 21:45 03/28/17 11:42 Lyrica PO Not Given BID [facility] Roflumilast 500 mcg 03/19/17 10:00 03/28/17 11:42 Daliresp PO Not Given DAILY [facility] Vitamin B Complex/Vitamin C 1 tab 03/19/17 10:00 03/28/17 11:42 Berocca PO Not Given DAILY [facility] - Patient Studies Lab Studies: Lab Studies 03/28/17 03/28/17 03/28/17 Range/Units 11:19 06:40 06:40 WBC 17.9 H (4.8-10.8) K/uL RBC 4.40 (4.40-5.90) Mil/uL Hgb 8.6 L (12.0-18.0) g/dL Hct 29.2 L (35.0-51.0) % MCV 66.4 L (80.0-94.0) fL MCH 19.4 L (27.0-31.0) pg MCHC 29.3 L (33.0-37.0) g/dL RDW 29.7 H (11.5-14.5) % Plt Count 268 (130-400) K/uL MPV 9.1 (7.2-11.7) fL Neut % (Auto) 86.0 H (50.0-75.0) % Lymph % (Auto) 6.5 L (20.0-40.0) % [place] % (Auto) 7.0 (0.0-10.0) % Eos % (Auto) 0.1 (0.0-4.0) % Baso % (Auto) 0.4 (0.0-2.0) % Neut # 15.4 H (1.8-7.0) K/uL Lymph # 1.2 (1.0-4.3) K/uL [place] # 1.2 H (0.0-0.8) K/uL Eos # 0.0 (0.0-0.7) K/uL Baso # 0.1 (0.0-0.2) K/uL Neutrophils % (Manual) 71 (50-75) % Band Neutrophils % 10 H (0-2) % Lymphocytes % (Manual) 12 L (20-40) % Monocytes % (Manual) 6 (0-10) % Metamyelocytes % 1 H (0-0) % Platelet Estimate Normal (NORMAL) Hypochromasia (manual) Moderate Poikilocytosis (manual Anisocytosis (manual) Moderate Microcytosis (manual) Moderate Ovalocytes Moderate Schistocytes Puncture Site pCO2 (35-45) mm/Hg pO2 (80-100) mm/Hg HCO3 (21-28) mmol/L ABG pH (7.35-7.45) ABG Total CO2 (22-28) mmol/L ABG O2 Saturation (95-98) % ABG Base Excess (-2.0-3.0) mmol/L ABG Hemoglobin (11.7-17.4) g/dL ABG Carboxyhemoglobin (0.5-1.5) % POC ABG HHb (Measured) (0.0-5.0) % ABG Methemoglobin (0.0-3.0) % Jesus Test Hgb O2 Saturation (95.0-98.0) % Liter Flow Sodium 135 (132-148) mmol/L Potassium 4.0 (3.6-5.2) mmol/L Chloride 98 (98-107) mmol/L Carbon Dioxide 27 (22-30) mmol/L Anion Gap 14 (10-20) BUN 9 (9-20) mg/dL Creatinine 0.7 L (0.8-1.5) MG/DL Est GFR ( Amer) > 60 Est GFR (Non-Af Amer) > 60 POC Glucose (mg/dL) 161 H (65-110) mg/dL Random Glucose 125 H (75-110) mg/dL Calcium 8.0 L (8.6-10.4) mg/dl Phosphorus 3.7 (2.5-4.5) mg/dL Magnesium 1.6 (1.6-2.3) mg/dL Total Bilirubin 0.5 (0.2-1.3) mg/dL AST 49 (17-59) U/L ALT 86 H D (21-72) U/L Alkaline Phosphatase 76 (38-126) U/L Total Protein 5.4 L (6.3-8.3) g/dL Albumin 3.0 L (3.5-5.0) g/dL Globulin 2.4 (2.2-3.9) gm/dL Albumin/Globulin Ratio 1.3 (1.0-2.1) 03/28/17 03/28/17 03/27/17 Range/Units 06:00 05:06 18:46 WBC 25.1 H D (4.8-10.8) K/uL RBC 4.60 (4.40-5.90) Mil/uL Hgb 9.0 L (12.0-18.0) g/dL Hct 30.0 L (35.0-51.0) % MCV 65.1 L (80.0-94.0) fL MCH 19.5 L (27.0-31.0) pg MCHC 29.9 L (33.0-37.0) g/dL RDW 28.4 H (11.5-14.5) % Plt Count 311 (130-400) K/uL MPV 8.7 (7.2-11.7) fL Neut % (Auto) 94.3 H (50.0-75.0) % Lymph % (Auto) 1.1 L (20.0-40.0) % [place] % (Auto) 4.2 (0.0-10.0) % Eos % (Auto) 0.0 (0.0-4.0) % Baso % (Auto) 0.4 (0.0-2.0) % Neut # 23.6 H (1.8-7.0) K/uL Lymph # 0.3 L (1.0-4.3) K/uL [place] # 1.1 H (0.0-0.8) K/uL Eos # 0.0 (0.0-0.7) K/uL Baso # 0.1 (0.0-0.2) K/uL Neutrophils % (Manual) 80 H (50-75) % Band Neutrophils % 17 H* (0-2) % Lymphocytes % (Manual) 1 L (20-40) % Monocytes % (Manual) 1 (0-10) % Metamyelocytes % 1 H (0-0) % Platelet Estimate Normal (NORMAL) Hypochromasia (manual) Moderate Poikilocytosis (manual Slight Anisocytosis (manual) Slight Microcytosis (manual) Slight Ovalocytes Schistocytes Slight Puncture Site [place] pCO2 52 H (35-45) mm/Hg pO2 125 H (80-100) mm/Hg HCO3 30.0 H (21-28) mmol/L ABG pH 7.40 (7.35-7.45) ABG Total CO2 33.8 H (22-28) mmol/L ABG O2 Saturation 95.9 (95-98) % ABG Base Excess 6.5 H (-2.0-3.0) mmol/L ABG Hemoglobin 8.9 L (11.7-17.4) g/dL ABG Carboxyhemoglobin 0.1 L (0.5-1.5) % POC ABG HHb (Measured) 4.1 (0.0-5.0) % ABG Methemoglobin 0.0 (0.0-3.0) % Jesus Test Na Hgb O2 Saturation 95.8 (95.0-98.0) % Liter Flow 6.0 Sodium (132-148) mmol/L Potassium (3.6-5.2) mmol/L Chloride (98-107) mmol/L Carbon Dioxide (22-30) mmol/L Anion Gap (10-20) BUN (9-20) mg/dL Creatinine (0.8-1.5) MG/DL Est GFR ( Amer) Est GFR (Non-Af Amer) POC Glucose (mg/dL) 142 H (65-110) mg/dL Random Glucose (75-110) mg/dL Calcium (8.6-10.4) mg/dl Phosphorus (2.5-4.5) mg/dL Magnesium (1.6-2.3) mg/dL Total Bilirubin (0.2-1.3) mg/dL AST (17-59) U/L ALT (21-72) U/L Alkaline Phosphatase (38-126) U/L Total Protein (6.3-8.3) g/dL Albumin (3.5-5.0) g/dL Globulin (2.2-3.9) gm/dL Albumin/Globulin Ratio (1.0-2.1) 03/27/17 Range/Units 18:46 WBC (4.8-10.8) K/uL RBC (4.40-5.90) Mil/uL Hgb (12.0-18.0) g/dL Hct (35.0-51.0) % MCV (80.0-94.0) fL MCH (27.0-31.0) pg MCHC (33.0-37.0) g/dL RDW (11.5-14.5) % Plt Count (130-400) K/uL MPV (7.2-11.7) fL Neut % (Auto) (50.0-75.0) % Lymph % (Auto) (20.0-40.0) % [place] % (Auto) (0.0-10.0) % Eos % (Auto) (0.0-4.0) % Baso % (Auto) (0.0-2.0) % Neut # (1.8-7.0) K/uL Lymph # (1.0-4.3) K/uL [place] # (0.0-0.8) K/uL Eos # (0.0-0.7) K/uL Baso # (0.0-0.2) K/uL Neutrophils % (Manual) (50-75) % Band Neutrophils % (0-2) % Lymphocytes % (Manual) (20-40) % Monocytes % (Manual) (0-10) % Metamyelocytes % (0-0) % Platelet Estimate (NORMAL) Hypochromasia (manual) Poikilocytosis (manual Anisocytosis (manual) Microcytosis (manual) Ovalocytes Schistocytes Puncture Site pCO2 (35-45) mm/Hg pO2 (80-100) mm/Hg HCO3 (21-28) mmol/L ABG pH (7.35-7.45) ABG Total CO2 (22-28) mmol/L ABG O2 Saturation (95-98) % ABG Base Excess (-2.0-3.0) mmol/L ABG Hemoglobin (11.7-17.4) g/dL ABG Carboxyhemoglobin (0.5-1.5) % POC ABG HHb (Measured) (0.0-5.0) % ABG Methemoglobin (0.0-3.0) % Jesus Test Hgb O2 Saturation (95.0-98.0) % Liter Flow Sodium 133 (132-148) mmol/L Potassium 4.7 (3.6-5.2) mmol/L Chloride 97 L (98-107) mmol/L Carbon Dioxide 27 (22-30) mmol/L Anion Gap 13 (10-20) BUN 8 L (9-20) mg/dL Creatinine 0.7 L (0.8-1.5) MG/DL Est GFR ( Amer) > 60 Est GFR (Non-Af Amer) > 60 POC Glucose (mg/dL) (65-110) mg/dL Random Glucose 267 H (75-110) mg/dL Calcium 7.9 L (8.6-10.4) mg/dl Phosphorus (2.5-4.5) mg/dL Magnesium (1.6-2.3) mg/dL Total Bilirubin (0.2-1.3) mg/dL AST (17-59) U/L ALT (21-72) U/L Alkaline Phosphatase (38-126) U/L Total Protein (6.3-8.3) g/dL Albumin (3.5-5.0) g/dL Globulin (2.2-3.9) gm/dL Albumin/Globulin Ratio (1.0-2.1) Laboratory Results - last 24 hr 03/27/17 03/27/17 03/28/17 18:46 18:46 05:06 WBC 25.1 H D RBC 4.60 Hgb 9.0 L Hct 30.0 L MCV 65.1 L MCH 19.5 L MCHC 29.9 L RDW 28.4 H Plt Count 311 MPV 8.7 Neut % (Auto) 94.3 H Lymph % (Auto) 1.1 L [place] % (Auto) 4.2 Eos % (Auto) 0.0 Baso % (Auto) 0.4 Neut # 23.6 H Lymph # 0.3 L [place] # 1.1 H Eos # 0.0 Baso # 0.1 Neutrophils % (Manual) 80 H Band Neutrophils % 17 H* Lymphocytes % (Manual) 1 L Monocytes % (Manual) 1 Metamyelocytes % 1 H Platelet Estimate Normal Hypochromasia (manual) Moderate Poikilocytosis (manual Slight Anisocytosis (manual) Slight Microcytosis (manual) Slight Ovalocytes Schistocytes Slight Puncture Site Jessica pCO2 52 H pO2 125 H HCO3 30.0 H ABG pH 7.40 ABG Total CO2 33.8 H ABG O2 Saturation 95.9 ABG Base Excess 6.5 H ABG Hemoglobin 8.9 L ABG Carboxyhemoglobin 0.1 L POC ABG HHb (Measured) 4.1 ABG Methemoglobin 0.0 Jesus Test Na Hgb O2 Saturation 95.8 Liter Flow 6.0 Sodium 133 Potassium 4.7 Chloride 97 L Carbon Dioxide 27 Anion Gap 13 BUN 8 L Creatinine 0.7 L Est GFR ( Amer) > 60 Est GFR (Non-Af Amer) > 60 POC Glucose (mg/dL) Random Glucose 267 H Calcium 7.9 L Phosphorus Magnesium Total Bilirubin AST ALT Alkaline Phosphatase Total Protein Albumin Globulin Albumin/Globulin Ratio 03/28/17 03/28/17 03/28/17 06:00 06:40 06:40 WBC 17.9 H RBC 4.40 Hgb 8.6 L Hct 29.2 L MCV 66.4 L MCH 19.4 L MCHC 29.3 L RDW 29.7 H Plt Count 268 MPV 9.1 Neut % (Auto) 86.0 H Lymph % (Auto) 6.5 L [place] % (Auto) 7.0 Eos % (Auto) 0.1 Baso % (Auto) 0.4 Neut # 15.4 H Lymph # 1.2 [place] # 1.2 H Eos # 0.0 Baso # 0.1 Neutrophils % (Manual) 71 Band Neutrophils % 10 H Lymphocytes % (Manual) 12 L Monocytes % (Manual) 6 Metamyelocytes % 1 H Platelet Estimate Normal Hypochromasia (manual) Moderate Poikilocytosis (manual Anisocytosis (manual) Moderate Microcytosis (manual) Moderate Ovalocytes Moderate Schistocytes Puncture Site pCO2 pO2 HCO3 ABG pH ABG Total CO2 ABG O2 Saturation ABG Base Excess ABG Hemoglobin ABG Carboxyhemoglobin POC ABG HHb (Measured) ABG Methemoglobin Jesus Test Hgb O2 Saturation Liter Flow Sodium 135 Potassium 4.0 Chloride 98 Carbon Dioxide 27 Anion Gap 14 BUN 9 Creatinine 0.7 L Est GFR ( Amer) > 60 Est GFR (Non-Af Amer) > 60 POC Glucose (mg/dL) 142 H Random Glucose 125 H Calcium 8.0 L Phosphorus 3.7 Magnesium 1.6 Total Bilirubin 0.5 AST 49 ALT 86 H D Alkaline Phosphatase 76 Total Protein 5.4 L Albumin 3.0 L Globulin 2.4 Albumin/Globulin Ratio 1.3 03/28/17 11:19 WBC RBC Hgb Hct MCV MCH MCHC RDW Plt Count MPV Neut % (Auto) Lymph % (Auto) [place] % (Auto) Eos % (Auto) Baso % (Auto) Neut # Lymph # [place] # Eos # Baso # Neutrophils % (Manual) Band Neutrophils % Lymphocytes % (Manual) Monocytes % (Manual) Metamyelocytes % Platelet Estimate Hypochromasia (manual) Poikilocytosis (manual Anisocytosis (manual) Microcytosis (manual) Ovalocytes Schistocytes Puncture Site pCO2 pO2 HCO3 ABG pH ABG Total CO2 ABG O2 Saturation ABG Base Excess ABG Hemoglobin ABG Carboxyhemoglobin POC ABG HHb (Measured) ABG Methemoglobin Jesus Test Hgb O2 Saturation Liter Flow Sodium Potassium Chloride Carbon Dioxide Anion Gap BUN Creatinine Est GFR ( Amer) Est GFR (Non-Af Amer) POC Glucose (mg/dL) 161 H Random Glucose Calcium Phosphorus Magnesium Total Bilirubin AST ALT Alkaline Phosphatase Total Protein Albumin Globulin Albumin/Globulin Ratio EKG/Cardiology Studies: Cardiology / EKG Studies 03/27/17 17:38 ELECTROCARDIOGRAM Routine Comment: Mode Of Transportation: PORTABLE Reason For Exam: POST OP Critical Care Progress Note - Nutrition Nutrition: Nutrition Category Date Time Status NPO Diet [DIET] Diets 03/26/17 Dinner Active Assessment/Plan (1) COPD (chronic obstructive pulmonary disease) with emphysema Current Visit: Yes Status: Acute Priority: High Comment: Continue bronchodilators IV steroids BiPAP as needed Anxiolytic (2) Acute respiratory distress Current Visit: No Status: Acute Attending/Attestation - Attestation I have personally seen and examined this patient.: Yes I have fully participated in the care of the patient.: Yes I have reviewed all pertinent clinical information: Yes Notes (Text): 03/28/17 17:08 Patient seen and examined in the intensive care unit. Case discussed with house staff in the morning. 66 year old male with medical history of COPD with emphysema, asthma, DM, and anemia, presents to the ICU s/p resection with loop ileostomy of two tubulovillous adenomas Continue BiPAP at night Continue pain medications Continue nebulizer treatment and steroids for COPD
--- NOTE | 2017-03-28 17:01 | CP.PCM.PN ---
Subjective - Date & Time of Evaluation Date of Evaluation: 03/28/17 Time of Evaluation: 07:00 - Subjective Subjective: SURGERY PROGRESS NOTE FOR DR. MANZANO Patient seen and examined at bedside in the ICU. Patient states that he didn't sleep well due to pain. He is using his IS some. He denies flatus, BM, nausea, vomiting, fever, chills, CP. Has some SOB from his COPD. Objective - Vital Signs/Intake and Output Vital Signs (last 24 hours): Temp Pulse Resp BP Pulse Ox 98.1 F 130 H 21 135/76 95 03/28/17 04:00 03/28/17 07:00 03/28/17 07:00 03/28/17 07:00 03/28/17 07:00 Intake and Output: 03/28/17 03/28/17 06:59 18:59 Intake Total 1575 200 Output Total 990 205 Balance 585 -5 - Medications Medications: Current Medications Albuterol/Ipratropium (Duoneb 3 Mg/0.5 Mg (3 Ml) Ud) 3 ml INH RQ6 [facility] Last Admin: 03/28/17 13:02 Dose: Not Given Alprazolam (Xanax) 0.5 mg PO BID PRN PRN Reason: Anxiety Last Admin: 03/26/17 22:06 Dose: 0.5 mg Docusate Sodium (Colace) 100 mg PO BID [facility] Last Admin: 03/28/17 11:42 Dose: Not Given Ferric Sodium Gluconate Complex (Ferrlecit) 125 mg IVPB Q24H [facility] Stop: 03/28/17 17:01 Last Admin: 03/27/17 18:20 Dose: 125 mg Fluconazole (Diflucan) 100 mg PO DAILY [facility] Last Admin: 03/28/17 11:42 Dose: Not Given Guaifenesin (Mucinex La) 600 mg PO BID [facility] Last Admin: 03/28/17 11:42 Dose: Not Given Heparin Sodium (Porcine) (Heparin) 5,000 units SC Q12H [facility] Last Admin: 03/27/17 18:23 Dose: Not Given Home Med (Patient's Own Inhalation Solution) 1 ml INH RBID [facility] Last Admin: 03/28/17 11:22 Dose: Not Given Hydromorphone HCl (Dilaudid) 0.5 mg IVP Q2H PRN PRN Reason: Pain, severe (8-10) Last Admin: 03/28/17 14:59 Dose: 0.5 mg Lactated Ringer's (Lactated Ringer's) 1,000 mls @ 100 mls/hr IV .Q10H [facility] Last Admin: 03/28/17 11:58 Dose: 100 mls/hr Insulin Glargine (Lantus) 16 unit SC HS [facility] Last Admin: 03/26/17 22:06 Dose: Not Given Insulin Human Regular (Novolin R) 0 unit SC Q6H [facility] PRN Reason: Protocol Last Admin: 03/28/17 14:29 Dose: Not Given Lorazepam (Ativan) 0.5 mg IVP Q6H PRN PRN Reason: Anxiety Last Admin: 03/28/17 12:01 Dose: 0.5 mg Metformin HCl (Glucophage) 1,000 mg PO BID [facility] Last Admin: 03/28/17 11:42 Dose: Not Given Methylprednisolone (Solu-Medrol) 40 mg IVP DAILY [facility] Last Admin: 03/28/17 10:30 Dose: 40 mg Montelukast Sodium (Singulair) 10 mg PO HS [facility] Last Admin: 03/27/17 21:54 Dose: Not Given Ondansetron HCl (Zofran Inj) 4 mg IVP Q4 PRN PRN Reason: Nausea/Vomiting Pantoprazole Sodium (Protonix Inj) 40 mg IVP DAILY [facility] Last Admin: 03/28/17 10:30 Dose: 40 mg Polyethylene Glycol (Miralax) 17 gm PO DAILY [facility] Last Admin: 03/25/17 09:25 Dose: 17 gm Pregabalin (Lyrica) 50 mg PO BID [facility] Last Admin: 03/28/17 11:42 Dose: Not Given Roflumilast (Daliresp) 500 mcg PO DAILY [facility] Last Admin: 03/28/17 11:42 Dose: Not Given Vitamin B Complex/Vitamin C (Berocca) 1 tab PO DAILY [facility] Last Admin: 03/28/17 11:42 Dose: Not Given - Labs Labs: 03/28/17 06:40 03/28/17 06:40 PT 11.7 SECONDS (9.7-12.2) 03/27/17 07:00 INR 1.0 03/27/17 07:00 APTT 27 SECONDS (21-34) 03/27/17 07:00 - Constitutional Appears: Non-toxic, No Acute Distress - Eye Exam Eye Exam: EOMI, Normal appearance - Respiratory Exam Respiratory Exam: NORMAL BREATHING PATTERN. absent: Respiratory Distress - Cardiovascular Exam Cardiovascular Exam: +S1, +S2 - GI/Abdominal Exam GI & Abdominal Exam: Distended, Tenderness (tenderness near incision). absent: Firm, Guarding, Rigid, Rebound Additional comments: Ezra drain with serosanguinous drainage 25cc over [employer] clerk Abdominal binder in place Dressings clean/dry/intact Ileostomy bag with few blood clots and no stool output Urine: hematuria, 1450cc over night - Neurological Exam Neurological Exam: Alert, Awake, Oriented x3 - Psychiatric Exam Psychiatric exam: Normal Affect, Normal Mood - Skin Skin Exam: Dry, Normal Color, Warm Assessment and Plan - Assessment and Plan (Free Text) Assessment: 66yo M with tubulovillous adenoma polyps x2 s/p low anterior resection with loop ileostomy POD#1 - Afebrile, tachycardic - Leukocytosis decreased to 17.9 - Hgb decreased slightly to 8.6 from 9.0 - Ezra drain with serosanguinous drainage 25cc over [employer] clerk - Ileostomy bag with few blood clots and no stool output - Urine: hematuria (after stents), 1450cc over night - PT ordered - Heparin BID - Pain control PRN - Will monitor for return of bowel function - Discussed plan with Dr. Emilia Steven PGY-3
--- NOTE | 2017-03-28 18:00 | CARD ---
APPROVED REPORT EKG Measurement Heart [id number] <Conclusion> Sinus tachycardia Otherwise normal ECG
--- NOTE | 2017-03-28 18:18 | PN ---
SUBJECTIVE: The patient is experiencing abdominal discomfort. No nausea or vomiting. He is in sinus tachycardia in the monitor. No chest pain. PHYSICAL EXAMINATION: VITAL SIGNS: Blood pressure 135/76, heart rate 130, sinus tachycardia on the monitor, temperature 98.1, respirations 17. HEENT: [place] conjunctivae. CHEST: Bilateral rhonchi. HEART: S1 and S2 regular. EXTREMITIES: No pedal edema. LABORATORY DATA: Hemoglobin and hematocrit 8.6 and 29.2. White count 17.9, platelet counts are 268,000. SMA-7 is within limits. glucose of 125 and creatinine 0.7. Post right heart failure EKG revealed sinus tachycardia at 315. ASSESSMENT: 1. Status post lower anterior abdominal resection with ileostomy. 2. Chronic obstructive lung disease. 3. Sinus tachycardia which is physiologic response to the patient's pain as well as tachypnea. 4. Anemia. RECOMMENDATIONS: Continue current IV Dilaudid 0.5 mg every 2 hours p.r.n. Continue IV Cipro and IV Flagyl. Resume of subcu heparin once cleared by surgeon. The case was discussed with Dr. Nieto and future closure of the ileostomy will be planned later on. Mukesh Correia MD
[2017-03-28] MEDS: Ferric Sodium Gluconat Complex 62.5 mg/5 ml Vial IVPB SCH (18:53)
[2017-03-29] MEDS: Albuterol-Ipratrop 3 mg / 0.5 (3 ml) UD INH SCH ×4 (01:37→19:20)
[2017-03-29] MEDS: HYDROmorphone 0.5 mg/0.5 ml ISec IVP PRN ×4 (05:53→22:42)
[2017-03-29] MEDS: (Novolin R) Insulin Human Regular 100 units/ml vial SC SCH ×4 (06:00→18:23)
[2017-03-29 06:37] LABS: BASO # 0.1 K/uL (0.0-0.2); BASO % 0.4 % (0.0-2.0); EOS % 0.3 % (0.0-4.0); HEMATOCRIT 25.9 % (35.0-51.0); LYMPH % 8.2 % (20.0-40.0); MEAN CELL VOLUME 65.7 fL (80.0-94.0); MEAN CORPUSCULAR HGB CONC 30.5 g/dL (33.0-37.0); MONO # 0.8 K/uL (0.0-0.8); MONO % 6.6 % (0.0-10.0); PLATELET COUNT 230 K/uL (130-400); RED CELL DISTRIBUTION WIDTH 30.5 % (11.5-14.5); WHITE BLOOD COUNT 12.7 K/uL (4.8-10.8)
[2017-03-29 06:47] LABS: ALB/GLOB RATIO 1.3 (1.0-2.1); ALKALINE PHOSPHATASE 67 U/L (38-126); ALT/SGPT 60 U/L (21-72); AST/SGOT 33 U/L (17-59); BILIRUBIN,TOTAL 0.4 mg/dL (0.2-1.3); BLOOD UREA NITROGEN 11 mg/dL (9-20); CALCIUM 8.6 mg/dl (8.6-10.4); CARBON DIOXIDE 29 mmol/L (22-30); CHLORIDE 96 mmol/L (98-107); GFR AFRICAN-AMERICAN > 60; GLUCOSE,RANDOM 114 mg/dL (75-110); MAGNESIUM 2.1 mg/dL (1.6-2.3); PHOSPHOROUS 2.7 mg/dL (2.5-4.5); POTASSIUM 4.3 mmol/L (3.6-5.2); SODIUM 134 mmol/L (132-148); TOTAL PROTEIN 5.3 g/dL (6.3-8.3)
[2017-03-29] MEDS: Lactated Ringer's 1,000 ML IV SCH ×2 (07:49→17:35)
[2017-03-29] MEDS: BROVANA 15 MCG/2 ML INH SCH ×2 (08:00→19:21)
[2017-03-29 08:15] LABS: NEUTROPHIL 87 % (50-75); TOTAL CELLS COUNTED 100
[2017-03-29] MEDS: guaiFENesin 600 mg ER Tab PO SCH ×2 (09:13→17:33)
[2017-03-29] MEDS: MethylPREDNISolone 40 mg Vial IVP SCH (09:26)
[2017-03-29] MEDS: Vitamin B Complex/Vitamin C Tab PO SCH (10:18)
--- NOTE | 2017-03-29 16:32 | CP.PCM.PN ---
Subjective - Date & Time of Evaluation Date of Evaluation: 03/29/17 Time of Evaluation: 07:00 - Subjective Subjective: SURGERY PROGRESS NOTE FOR DR. MANZANO Patient seen and examined at bedside in the ICU. He is currently OOB to chair. He has not ambulated yet. He is using the IS. He reports abdominal pain but it is mild. He is NPO w/ ice chips. No nausea or vomiting. NG tube and Calderon in place. NG tube was flushed. Objective - Vital Signs/Intake and Output Vital Signs (last 24 hours): Temp Pulse Resp BP Pulse Ox 98 F 126 H 14 116/75 99 03/29/17 12:00 03/29/17 15:00 03/29/17 15:00 03/29/17 14:48 03/29/17 15:00 Intake and Output: 03/29/17 03/29/17 06:59 18:59 Intake Total 1100 900 Output Total 1235 900 Balance -135 0 - Medications Medications: Current Medications Albuterol/Ipratropium (Duoneb 3 Mg/0.5 Mg (3 Ml) Ud) 3 ml INH RQ6 [facility] Last Admin: 03/29/17 13:21 Dose: 3 ml Alprazolam (Xanax) 0.5 mg PO BID PRN PRN Reason: Anxiety Last Admin: 03/26/17 22:06 Dose: 0.5 mg Docusate Sodium (Colace) 100 mg PO BID [facility] Last Admin: 03/29/17 09:19 Dose: Not Given Fluconazole (Diflucan) 100 mg PO DAILY [facility] Last Admin: 03/29/17 12:24 Dose: Not Given Guaifenesin (Mucinex La) 600 mg PO BID [facility] Last Admin: 03/29/17 09:13 Dose: Not Given Heparin Sodium (Porcine) (Heparin) 5,000 units SC Q12H [facility] Last Admin: 03/29/17 05:31 Dose: Not Given Home Med (Patient's Own Inhalation Solution) 1 ml INH RBID [facility] Hydromorphone HCl (Dilaudid) 0.5 mg IVP Q2H PRN PRN Reason: Pain, severe (8-10) Last Admin: 03/29/17 15:01 Dose: 0.5 mg Lactated Ringer's (Lactated Ringer's) 1,000 mls @ 100 mls/hr IV .Q10H [facility] Last Admin: 03/29/17 07:49 Dose: 100 mls/hr Insulin Glargine (Lantus) 16 unit SC [facility] Last Admin: 03/26/17 22:06 Dose: Not Given Insulin Human Regular (Novolin R) 0 unit SC Q6H [facility] PRN Reason: Protocol Last Admin: 03/29/17 12:02 Dose: 1 unit Lorazepam (Ativan) 0.5 mg IVP Q6H PRN PRN Reason: Anxiety Last Admin: 03/28/17 18:43 Dose: 0.5 mg Metformin HCl (Glucophage) 1,000 mg PO BID [facility] Last Admin: 03/29/17 09:11 Dose: Not Given Methylprednisolone (Solu-Medrol) 40 mg IVP DAILY [facility] Last Admin: 03/29/17 09:26 Dose: 40 mg Montelukast Sodium (Singulair) 10 mg PO HS [facility] Last Admin: 03/28/17 22:24 Dose: Not Given Ondansetron HCl (Zofran Inj) 4 mg IVP Q4 PRN PRN Reason: Nausea/Vomiting Pantoprazole Sodium (Protonix Inj) 40 mg IVP DAILY [facility] Last Admin: 03/29/17 09:14 Dose: 40 mg Polyethylene Glycol (Miralax) 17 gm PO DAILY [facility] Last Admin: 03/25/17 09:25 Dose: 17 gm Pregabalin (Lyrica) 50 mg PO BID [facility] Last Admin: 03/29/17 09:19 Dose: Not Given Roflumilast (Daliresp) 500 mcg PO DAILY [facility] Last Admin: 03/29/17 11:37 Dose: Not Given Vitamin B Complex/Vitamin C (Berocca) 1 tab PO DAILY [facility] Last Admin: 03/29/17 10:18 Dose: Not Given - Labs Labs: 03/29/17 06:27 03/29/17 06:20 PT 11.7 SECONDS (9.7-12.2) 03/27/17 07:00 INR 1.0 03/27/17 07:00 APTT 27 SECONDS (21-34) 03/27/17 07:00 - Constitutional Appears: Non-toxic, No Acute Distress - Head Exam Head Exam: ATRAUMATIC, NORMAL INSPECTION - Respiratory Exam Respiratory Exam: NORMAL BREATHING PATTERN. absent: Respiratory Distress - Cardiovascular Exam Cardiovascular Exam: Tachycardia, +S1, +S2 - GI/Abdominal Exam GI & Abdominal Exam: Distended, Tenderness (tenderness around incision site). 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 Emilia Steven PGY-3
--- NOTE | 2017-03-29 16:51 | CP.PCM.PN ---
Subjective - Date & Time of Evaluation Date of Evaluation: 03/29/17 Time of Evaluation: 13:25 - Subjective Subjective: patient seen and examined. Denies any abdominal pain or shortness of breath Hypoactive bowel sounds For transfer to floor Objective - Vital Signs/Intake and Output Vital Signs (last 24 hours): Temp Pulse Resp BP Pulse Ox 98 F 126 H 14 116/75 99 03/29/17 12:00 03/29/17 15:00 03/29/17 15:00 03/29/17 14:48 03/29/17 15:00 Intake and Output: 03/29/17 03/29/17 06:59 18:59 Intake Total 1100 900 Output Total 1235 900 Balance -135 0 - Medications Medications: Current Medications Albuterol/Ipratropium (Duoneb 3 Mg/0.5 Mg (3 Ml) Ud) 3 ml INH RQ6 [facility] Last Admin: 03/29/17 13:21 Dose: 3 ml Alprazolam (Xanax) 0.5 mg PO BID PRN PRN Reason: Anxiety Last Admin: 03/26/17 22:06 Dose: 0.5 mg Docusate Sodium (Colace) 100 mg PO BID [facility] Last Admin: 03/29/17 09:19 Dose: Not Given Fluconazole (Diflucan) 100 mg PO DAILY [facility] Last Admin: 03/29/17 12:24 Dose: Not Given Guaifenesin (Mucinex La) 600 mg PO BID [facility] Last Admin: 03/29/17 09:13 Dose: Not Given Heparin Sodium (Porcine) (Heparin) 5,000 units SC Q12H [facility] Last Admin: 03/29/17 05:31 Dose: Not Given Home Med (Patient's Own Inhalation Solution) 1 ml INH RBID [facility] Hydromorphone HCl (Dilaudid) 0.5 mg IVP Q2H PRN PRN Reason: Pain, severe (8-10) Last Admin: 03/29/17 15:01 Dose: 0.5 mg Lactated Ringer's (Lactated Ringer's) 1,000 mls @ 100 mls/hr IV .Q10H [facility] Last Admin: 03/29/17 07:49 Dose: 100 mls/hr Insulin Glargine (Lantus) 16 unit SC HS [facility] Last Admin: 03/26/17 22:06 Dose: Not Given Insulin Human Regular (Novolin R) 0 unit SC Q6H [facility] PRN Reason: Protocol Last Admin: 03/29/17 12:02 Dose: 1 unit Lorazepam (Ativan) 0.5 mg IVP Q6H PRN PRN Reason: Anxiety Last Admin: 03/28/17 18:43 Dose: 0.5 mg Metformin HCl (Glucophage) 1,000 mg PO BID [facility] Last Admin: 03/29/17 09:11 Dose: Not Given Methylprednisolone (Solu-Medrol) 40 mg IVP DAILY [facility] Last Admin: 03/29/17 09:26 Dose: 40 mg Montelukast Sodium (Singulair) 10 mg PO HS [facility] Last Admin: 03/28/17 22:24 Dose: Not Given Ondansetron HCl (Zofran Inj) 4 mg IVP Q4 PRN PRN Reason: Nausea/Vomiting Pantoprazole Sodium (Protonix Inj) 40 mg IVP DAILY [facility] Last Admin: 03/29/17 09:14 Dose: 40 mg Polyethylene Glycol (Miralax) 17 gm PO DAILY [facility] Last Admin: 03/25/17 09:25 Dose: 17 gm Pregabalin (Lyrica) 50 mg PO BID [facility] Last Admin: 03/29/17 09:19 Dose: Not Given Roflumilast (Daliresp) 500 mcg PO DAILY [facility] Last Admin: 03/29/17 11:37 Dose: Not Given Vitamin B Complex/Vitamin C (Berocca) 1 tab PO DAILY [facility] Last Admin: 03/29/17 10:18 Dose: Not Given - Labs Labs: 03/29/17 06:27 03/29/17 06:20 PT 11.7 SECONDS (9.7-12.2) 03/27/17 07:00 INR 1.0 03/27/17 07:00 APTT 27 SECONDS (21-34) 03/27/17 07:00 Assessment and Plan (1) COPD (chronic obstructive pulmonary disease) with emphysema Status: Acute (2) Acute respiratory distress Status: Acute
--- NOTE | 2017-03-29 17:06 | CP.CCUPN ---
<Melody Bower - Last Filed: 03/29/17 19:01> CCU Subjective - Physician Review Subjective (Free Text): Patient was seen and examined at bedside in the morning. Patient reports still having pain in his abdomen and surgical site. Patient also reports still feeling short of breath. Patient denies having chest pain, cough, dizziness, fevers, nausea, vomiting, and headaches. 03/29/17 19:01 CCU Objective - Vital Signs / Intake & Output Vital Signs (Last 4 hours): Vital Signs Pulse Resp BP Pulse Ox 03/29/17 15:00 126 H 14 99 03/29/17 14:50 125 H 25 H 99 03/29/17 14:48 124 H 14 116/75 100 03/29/17 14:40 124 H 15 100 03/29/17 14:30 122 H 15 100 03/29/17 14:20 126 H 21 100 03/29/17 14:10 119 H 18 100 03/29/17 14:00 123 H 20 99 03/29/17 13:50 125 H 16 100 03/29/17 13:48 124 H 22 116/77 100 03/29/17 13:40 121 H 17 100 03/29/17 13:30 119 H 16 100 03/29/17 13:20 122 H 21 98 03/29/17 13:10 122 H 19 99 Intake and Output (Last 8hrs): Intake & Output 03/29/17 03/29/17 03/29/17 06:59 14:59 22:59 Intake Total 800 800 100 Output Total 890 825 75 Balance -90 -25 25 Weight 166 lb 14.239 oz Intake: Intake, IV Amount 800 800 100 Right Wrist 800 800 100 Output: Drainage 65 Left Abdomen 15 Right Abdomen 50 Urine 825 825 75 Urethral (Calderon) 825 825 75 - Physical Exam Head: Positive for: Atraumatic, Normocephalic, Ecchymosis (periorbital eccyhmosis and swelling) Extroacular Muscles: Positive for: EOMI Mouth: Positive for: Moist Mucous Membranes Respiratory/Chest: Positive for: Wheezes, Decreased Breath Sounds, Tachypneic. Negative for: Rales Cardiovascular: Positive for: Normal S1, S2, Peripheal Pulses Present, Tachycardic Abdomen: Positive for: Tenderness, Other (s/p surgery, bandaging, ileostomy bag and drain placed). Negative for: Normal Bowel Sounds (decreased) Upper Extremity: Positive for: Normal Inspection. Negative for: Edema Lower Extremity: Positive for: Edema. Negative for: Normal Inspection, Cyanosis Skin: Positive for: Warm, Dry, Normal Color Psychiatric: Positive for: Alert, Oriented x 3, Normal Affect - Medications Active Medications: Active Medications Generic Name Dose Route Start Last Admin Trade Name Freq PRN Reason Stop Dose Admin Albuterol/Ipratropium 3 ml 03/25/17 14:00 03/29/17 13:21 Duoneb 3 Mg/0.5 Mg (3 Ml) Ud INH 3 ml RQ6 [facility]ANCE Administration Alprazolam 0.5 mg 03/26/17 09:55 03/26/17 22:06 Xanax PO 0.5 mg BID PRN Administration Anxiety Docusate Sodium 100 mg 03/19/17 18:00 03/29/17 09:19 Colace PO Not Given BID [facility]ANCE Fluconazole 100 mg 03/24/17 10:00 03/29/17 12:24 Diflucan PO Not Given DAILY [facility] Guaifenesin 600 mg 03/19/17 10:00 03/29/17 09:13 Mucinex La PO Not Given BID [facility] Heparin Sodium (Porcine) 5,000 units 03/27/17 18:00 03/29/17 05:31 Heparin SC Not Given Q12H [facility] Home Med 1 ml 03/29/17 20:00 Patient's Own Inhalation Solution INH RBID [facility] Hydromorphone HCl 0.5 mg 03/27/17 17:33 03/29/17 15:01 Dilaudid IVP 0.5 mg Q2H PRN Administration Pain, severe (8-10) Lactated Ringer's 1,000 mls @ 100 mls/hr 03/27/17 16:15 03/29/17 07:49 Lactated Ringer's IV 100 mls/hr .Q10H [facility] Administration Insulin Glargine 16 unit 03/19/17 22:00 03/26/17 22:06 Lantus SC Not Given HS [facility] Insulin Human Regular 0 unit 03/28/17 06:00 03/29/17 12:02 Novolin R SC 1 unit Q6H [facility]ANCE Administration Protocol Lorazepam 0.5 mg 03/28/17 10:17 03/28/17 18:43 Ativan IVP 0.5 mg Q6H PRN Administration Anxiety Metformin HCl 1,000 mg 03/19/17 10:00 03/29/17 09:11 Glucophage PO Not Given BID [facility]ANCE Methylprednisolone 40 mg 03/21/17 10:00 03/29/17 09:26 Solu-Medrol IVP 40 mg DAILY [facility]ANCE Administration Montelukast Sodium 10 mg 03/19/17 22:00 03/28/17 22:24 Singulair PO Not Given HS [facility]ANCE Ondansetron HCl 4 mg 03/27/17 16:12 Zofran Inj IVP Q4 PRN Nausea/Vomiting Pantoprazole Sodium 40 mg 03/28/17 10:00 03/29/17 09:14 Protonix Inj IVP 40 mg DAILY [facility] Administration Polyethylene Glycol 17 gm 03/20/17 10:00 03/25/17 09:25 Miralax PO 17 gm DAILY [facility] Administration Pregabalin 50 mg 03/22/17 21:45 03/29/17 09:19 Lyrica PO Not Given BID [facility]ANCE Roflumilast 500 mcg 03/19/17 10:00 03/29/17 11:37 Daliresp PO Not Given DAILY [facility] Vitamin B Complex/Vitamin C 1 tab 03/19/17 10:00 03/29/17 10:18 Berocca PO Not Given DAILY CHANCE - Patient Studies Lab Studies: Microbiology Studies 03/27/17 18:10 MRSA Culture (Admit) - Final Nose MRSA NOT DETECTED Lab Studies 03/29/17 03/29/17 03/29/17 Range/Units 11:44 06:27 06:20 WBC 12.7 H (4.8-10.8) K/uL RBC 3.94 L (4.40-5.90) Mil/uL Hgb 7.9 L (12.0-18.0) g/dL Hct 25.9 L (35.0-51.0) % MCV 65.7 L (80.0-94.0) fL MCH 20.0 L (27.0-31.0) pg MCHC 30.5 L (33.0-37.0) g/dL RDW 30.5 H (11.5-14.5) % Plt Count 230 (130-400) K/uL MPV 9.0 (7.2-11.7) fL Neut % (Auto) 84.5 H (50.0-75.0) % Lymph % (Auto) 8.2 L (20.0-40.0) % [place] % (Auto) 6.6 (0.0-10.0) % Eos % (Auto) 0.3 (0.0-4.0) % Baso % (Auto) 0.4 (0.0-2.0) % Neut # 10.8 H (1.8-7.0) K/uL Lymph # 1.0 (1.0-4.3) K/uL [place] # 0.8 (0.0-0.8) K/uL Eos # 0.0 (0.0-0.7) K/uL Baso # 0.1 (0.0-0.2) K/uL Neutrophils % (Manual) 87 H (50-75) % Band Neutrophils % 7 H (0-2) % Lymphocytes % (Manual) 4 L (20-40) % Monocytes % (Manual) 2 (0-10) % Platelet Estimate Normal (NORMAL) Hypochromasia (manual) Moderate Poikilocytosis (manual Slight Basophilic Stippling Slight Anisocytosis (manual) Marked Microcytosis (manual) Moderate Ovalocytes Moderate Sodium 134 (132-148) mmol/L Potassium 4.3 (3.6-5.2) mmol/L Chloride 96 L (98-107) mmol/L Carbon Dioxide 29 (22-30) mmol/L Anion Gap 13 (10-20) BUN 11 (9-20) mg/dL Creatinine 0.9 (0.8-1.5) MG/DL Est GFR ( Amer) > 60 Est GFR (Non-Af Amer) > 60 POC Glucose (mg/dL) 171 H (65-110) mg/dL Random Glucose 114 H (75-110) mg/dL Calcium 8.6 (8.6-10.4) mg/dl Phosphorus 2.7 (2.5-4.5) mg/dL Magnesium 2.1 (1.6-2.3) mg/dL Total Bilirubin 0.4 (0.2-1.3) mg/dL AST 33 (17-59) U/L ALT 60 (21-72) U/L Alkaline Phosphatase 67 (38-126) U/L Total Protein 5.3 L (6.3-8.3) g/dL Albumin 2.9 L (3.5-5.0) g/dL Globulin 2.3 (2.2-3.9) gm/dL Albumin/Globulin Ratio 1.3 (1.0-2.1) 03/29/17 03/29/17 03/28/17 Range/Units 05:59 00:30 17:41 WBC (4.8-10.8) K/uL RBC (4.40-5.90) Mil/uL Hgb (12.0-18.0) g/dL Hct (35.0-51.0) % MCV (80.0-94.0) fL MCH (27.0-31.0) pg MCHC (33.0-37.0) g/dL RDW (11.5-14.5) % Plt Count (130-400) K/uL MPV (7.2-11.7) fL Neut % (Auto) (50.0-75.0) % Lymph % (Auto) (20.0-40.0) % [place] % (Auto) (0.0-10.0) % Eos % (Auto) (0.0-4.0) % Baso % (Auto) (0.0-2.0) % Neut # (1.8-7.0) K/uL Lymph # (1.0-4.3) K/uL [place] # (0.0-0.8) K/uL Eos # (0.0-0.7) K/uL Baso # (0.0-0.2) K/uL Neutrophils % (Manual) (50-75) % Band Neutrophils % (0-2) % Lymphocytes % (Manual) (20-40) % Monocytes % (Manual) (0-10) % Platelet Estimate (NORMAL) Hypochromasia (manual) Poikilocytosis (manual Basophilic Stippling Anisocytosis (manual) Microcytosis (manual) Ovalocytes Sodium (132-148) mmol/L Potassium (3.6-5.2) mmol/L Chloride (98-107) mmol/L Carbon Dioxide (22-30) mmol/L Anion Gap (10-20) BUN (9-20) mg/dL Creatinine (0.8-1.5) MG/DL Est GFR ( Amer) Est GFR (Non-Af Amer) POC Glucose (mg/dL) 130 H 133 H 199 H (65-110) mg/dL Random Glucose (75-110) mg/dL Calcium (8.6-10.4) mg/dl Phosphorus (2.5-4.5) mg/dL Magnesium (1.6-2.3) mg/dL Total Bilirubin (0.2-1.3) mg/dL AST (17-59) U/L ALT (21-72) U/L Alkaline Phosphatase (38-126) U/L Total Protein (6.3-8.3) g/dL Albumin (3.5-5.0) g/dL Globulin (2.2-3.9) gm/dL Albumin/Globulin Ratio (1.0-2.1) Laboratory Results - last 24 hr 03/28/17 03/29/17 03/29/17 17:41 00:30 05:59 WBC RBC Hgb Hct MCV MCH MCHC RDW Plt Count MPV Neut % (Auto) Lymph % (Auto) [place] % (Auto) Eos % (Auto) Baso % (Auto) Neut # Lymph # [place] # Eos # Baso # Neutrophils % (Manual) Band Neutrophils % Lymphocytes % (Manual) Monocytes % (Manual) Platelet Estimate Hypochromasia (manual) Poikilocytosis (manual Basophilic Stippling Anisocytosis (manual) Microcytosis (manual) Ovalocytes Sodium Potassium Chloride Carbon Dioxide Anion Gap BUN Creatinine Est GFR ( Amer) Est GFR (Non-Af Amer) POC Glucose (mg/dL) 199 H 133 H 130 H Random Glucose Calcium Phosphorus Magnesium Total Bilirubin AST ALT Alkaline Phosphatase Total Protein Albumin Globulin Albumin/Globulin Ratio 03/29/17 03/29/17 03/29/17 06:20 06:27 11:44 WBC 12.7 H RBC 3.94 L Hgb 7.9 L Hct 25.9 L MCV 65.7 L MCH 20.0 L MCHC 30.5 L RDW 30.5 H Plt Count 230 MPV 9.0 Neut % (Auto) 84.5 H Lymph % (Auto) 8.2 L [place] % (Auto) 6.6 Eos % (Auto) 0.3 Baso % (Auto) 0.4 Neut # 10.8 H Lymph # 1.0 [place] # 0.8 Eos # 0.0 Baso # 0.1 Neutrophils % (Manual) 87 H Band Neutrophils % 7 H Lymphocytes % (Manual) 4 L Monocytes % (Manual) 2 Platelet Estimate Normal Hypochromasia (manual) Moderate Poikilocytosis (manual Slight Basophilic Stippling Slight Anisocytosis (manual) Marked Microcytosis (manual) Moderate Ovalocytes Moderate Sodium 134 Potassium 4.3 Chloride 96 L Carbon Dioxide 29 Anion Gap 13 BUN 11 Creatinine 0.9 Est GFR ( Amer) > 60 Est GFR (Non-Af Amer) > 60 POC Glucose (mg/dL) 171 H Random Glucose 114 H Calcium 8.6 Phosphorus 2.7 Magnesium 2.1 Total Bilirubin 0.4 AST 33 ALT 60 Alkaline Phosphatase 67 Total Protein 5.3 L Albumin 2.9 L Globulin 2.3 Albumin/Globulin Ratio 1.3 Fingerstick Blood Sugar Results: 171 Review of Systems - Constitutional Constitutional: absent: Fever - Cardiovascular Cardiovascular: Dyspnea. absent: Chest Pain - Respiratory Respiratory: Dyspnea, Pain with Coughing. absent: Cough - Gastrointestinal Gastrointestinal: Abdominal Pain. absent: Nausea, Vomiting - Neurological Neurological: absent: Dizziness, Headaches Critical Care Progress Note - Nutrition Nutrition: Nutrition Category Date Time Status NPO Diet [DIET] Diets 03/26/17 Dinner Active Assessment/Plan - Assessment and Plan (Free Text) Assessment: 66 year old male with medical history of COPD with emphysema, asthma, DM, and anemia, presents to the ICU s/p resection with loop ileostomy of two tubulovillous adenomas (with Dr. Nieto). Neuro: alert, orientedx3 - Dilaudid for pain - Continue Xanax, Ativan prn Pulm: Hx of COPD w/emphysema, Asthma - Continue Solumedrol, Duonebs, daliresp, robitussin - BiPAP at night, prn (Hx of sleep apnea) - Incentive spirometry - Pulmonology consulted- Dr. Nuno, help appreciated CV: Hemodynamically stable - Continue lactated ringers 1000ml @100ml/hr - Monitor Endo: Hx of DM - Monitor blood glucose - Continue ISS, Metformin, Lantus GI: s/p resection with loop ileostomy of tubulovillous adenoma x2 (in sigmoid and rectosigmoid) - Hx of GI bleed, 5 polyps total - Dilaudid for pain : Calderon Heme: Hx of GI bleed, anemia - Hgb 7.9 - Continue to Monitor H/H Renal: no acute issues - Monitor kidney function ID: Leukocytosis-- improving Prophylaxis: - DVT: Heparin 5000SC, SCDs - GI: Protonix <Latef,Mario Quinn - Last Filed: 03/31/17 23:45> CCU Objective - Vital Signs / Intake & Output Intake and Output (Last 8hrs): Intake & Output 03/31/17 03/31/17 04/01/17 14:59 22:59 06:59 Intake Total 1000 Output Total 240 Balance 760 Intake: IV 800 Oral 200 Output: Drainage 40 Left Abdomen 40 Stool 200 - Medications Active Medications: Active Medications Generic Name Dose Route Start Last Admin Trade Name Freq PRN Reason Stop Dose Admin Albuterol/Ipratropium 3 ml 03/25/17 14:00 03/31/17 19:25 Duoneb 3 Mg/0.5 Mg (3 Ml) Ud INH 3 ml RQ6 [facility]ANCE Administration Alprazolam 0.5 mg 03/26/17 09:55 03/31/17 13:59 Xanax PO 0.5 mg BID PRN Administration Anxiety Docusate Sodium 100 mg 03/19/17 18:00 03/31/17 19:49 Colace PO Not Given BID [facility]ANCE Fluconazole 100 mg 03/24/17 10:00 03/31/17 10:28 Diflucan PO Not Given DAILY [facility] Guaifenesin 600 mg 03/19/17 10:00 03/31/17 19:50 Mucinex La PO Not Given BID [facility] Home Med 1 ml 03/29/17 20:00 03/31/17 19:25 Patient's Own Inhalation Solution INH 1 ml RBID [facility]ANCE Administration Hydromorphone HCl 0.5 mg 03/27/17 17:33 03/31/17 17:51 Dilaudid IVP 0.5 mg Q2H PRN Administration Pain, severe (8-10) Lactated Ringer's 1,000 mls @ 100 mls/hr 03/27/17 16:15 03/31/17 22:56 Lactated Ringer's IV Not Given .Q10H [facility] Insulin Glargine 16 unit 03/19/17 22:00 03/26/17 22:06 Lantus SC Not Given HS [facility] Insulin Human Regular 0 unit 03/28/17 06:00 03/31/17 17:55 Novolin R SC 2 unit Q6H [facility]ANCE Administration Protocol Metformin HCl 1,000 mg 03/19/17 10:00 03/31/17 19:50 Glucophage PO Not Given BID [facility] Methylprednisolone 40 mg 03/21/17 10:00 03/31/17 10:28 Solu-Medrol IVP 40 mg DAILY [facility]ANCE Administration Montelukast Sodium 10 mg 03/19/17 22:00 03/31/17 22:56 Singulair PO Not Given HS [facility] Ondansetron HCl 4 mg 03/27/17 16:12 Zofran Inj IVP Q4 PRN Nausea/Vomiting Pantoprazole Sodium 40 mg 03/28/17 10:00 03/31/17 10:28 Protonix Inj IVP 40 mg DAILY [facility] Administration Polyethylene Glycol 17 gm 03/20/17 10:00 03/25/17 09:25 Miralax PO 17 gm DAILY [facility] Administration Pregabalin 50 mg 03/22/17 21:45 03/31/17 19:50 Lyrica PO Not Given BID [facility] Roflumilast 500 mcg 03/19/17 10:00 03/31/17 10:28 Daliresp PO Not Given DAILY [facility] Vitamin B Complex/Vitamin C 1 tab 03/19/17 10:00 03/31/17 10:28 Berocca PO Not Given DAILY [facility] - Patient Studies Lab Studies: Microbiology Studies 03/30/17 15:20 MRSA Culture - Final Naris MRSA NOT DETECTED Lab Studies 03/31/17 03/31/17 03/31/17 Range/Units 21:28 16:50 11:30 POC Glucose (mg/dL) 183 H 246 H 121 H (65-110) mg/dL 03/31/17 Range/Units 06:31 POC Glucose (mg/dL) 95 (65-110) mg/dL Laboratory Results - last 24 hr 03/31/17 03/31/17 03/31/17 06:31 11:30 16:50 POC Glucose (mg/dL) 95 121 H 246 H 03/31/17 21:28 POC Glucose (mg/dL) 183 H Critical Care Progress Note - Nutrition Nutrition: Nutrition Category Date Time Status Liquid Diet [DIET] Diets 03/31/17 Lunch Active Attending/Attestation - Attestation I have personally seen and examined this patient.: Yes I have fully participated in the care of the patient.: Yes I have reviewed all pertinent clinical information: Yes Notes (Text): Today: , March 29, 2017 The Patient was seen and examined at the bedside, Medical records reviewed, and management issues were discussed and formulated. All clinical/lab/hemodynamic/radiographic data were reviewed Events reviewed Pain issues, skin care, head of the bed elevation, glycemic control were addressed. Agree with above treatment plans as transcribed in Dr. Bower note
--- NOTE | 2017-03-29 22:32 | CP.PCM.PN ---
Subjective - Date & Time of Evaluation Date of Evaluation: 03/29/17 - Subjective Subjective: MORE ALERT ,TACHYCARDIAC, NO CHEST PAIN, POSITIVE CHEST CONGESTION, NO FEVER Objective - Vital Signs/Intake and Output Vital Signs (last 24 hours): Temp Pulse Resp BP Pulse Ox 98.1 F 105 H 14 107/83 100 03/29/17 16:00 03/29/17 18:00 03/29/17 18:00 03/29/17 17:48 03/29/17 18:00 Intake and Output: 03/29/17 03/30/17 18:59 06:59 Intake Total 1200 Output Total 1325 Balance -125 - Medications Medications: Current Medications Albuterol/Ipratropium (Duoneb 3 Mg/0.5 Mg (3 Ml) Ud) 3 ml INH RQ6 [facility] Last Admin: 03/29/17 19:20 Dose: 3 ml Alprazolam (Xanax) 0.5 mg PO BID PRN PRN Reason: Anxiety Last Admin: 03/26/17 22:06 Dose: 0.5 mg Docusate Sodium (Colace) 100 mg PO BID [facility] Last Admin: 03/29/17 17:33 Dose: Not Given Fluconazole (Diflucan) 100 mg PO DAILY [facility] Last Admin: 03/29/17 12:24 Dose: Not Given Guaifenesin (Mucinex La) 600 mg PO BID [facility] Last Admin: 03/29/17 17:33 Dose: Not Given Heparin Sodium (Porcine) (Heparin) 5,000 units SC Q12H [facility] Last Admin: 03/29/17 17:32 Dose: 5,000 units Home Med (Patient's Own Inhalation Solution) 1 ml INH RBID [facility] Last Admin: 03/29/17 19:21 Dose: 1 ml Hydromorphone HCl (Dilaudid) 0.5 mg IVP Q2H PRN PRN Reason: Pain, severe (8-10) Last Admin: 03/29/17 15:01 Dose: 0.5 mg Lactated Ringer's (Lactated Ringer's) 1,000 mls @ 100 mls/hr IV .Q10H [facility] Last Admin: 03/29/17 17:35 Dose: 100 mls/hr Insulin Glargine (Lantus) 16 unit SC [facility] Last Admin: 03/26/17 22:06 Dose: Not Given Insulin Human Regular (Novolin R) 0 unit SC Q6H [facility] PRN Reason: Protocol Last Admin: 03/29/17 18:23 Dose: 2 unit Metformin HCl (Glucophage) 1,000 mg PO BID [facility] Last Admin: 03/29/17 17:33 Dose: Not Given Methylprednisolone (Solu-Medrol) 40 mg IVP DAILY [facility] Last Admin: 03/29/17 09:26 Dose: 40 mg Montelukast Sodium (Singulair) 10 mg PO HS [facility] Last Admin: 03/28/17 22:24 Dose: Not Given Ondansetron HCl (Zofran Inj) 4 mg IVP Q4 PRN PRN Reason: Nausea/Vomiting Pantoprazole Sodium (Protonix Inj) 40 mg IVP DAILY [facility] Last Admin: 03/29/17 09:14 Dose: 40 mg Polyethylene Glycol (Miralax) 17 gm PO DAILY [facility] Last Admin: 03/25/17 09:25 Dose: 17 gm Pregabalin (Lyrica) 50 mg PO BID [facility] Last Admin: 03/29/17 17:33 Dose: Not Given Roflumilast (Daliresp) 500 mcg PO DAILY [facility] Last Admin: 03/29/17 11:37 Dose: Not Given Vitamin B Complex/Vitamin C (Berocca) 1 tab PO DAILY [facility] Last Admin: 03/29/17 10:18 Dose: Not Given - Labs Labs: 03/29/17 06:27 03/29/17 06:20 PT 11.7 SECONDS (9.7-12.2) 03/27/17 07:00 INR 1.0 03/27/17 07:00 APTT 27 SECONDS (21-34) 03/27/17 07:00 - Constitutional Appears: Non-toxic, Chronically Ill - Head Exam Head Exam: ATRAUMATIC, NORMAL INSPECTION, NORMOCEPHALIC - Eye Exam Eye Exam: EOMI, Normal appearance Pupil Exam: NORMAL ACCOMODATION - ENT Exam ENT Exam: Mucous Membranes Moist, Normal Exam, Normal Oropharynx, TM's Normal Bilaterally - Neck Exam Neck Exam: Normal Inspection - Respiratory Exam Respiratory Exam: Rales, Rhonchi - Cardiovascular Exam Cardiovascular Exam: Tachycardia, REGULAR RHYTHM, +S1, +S2 - GI/Abdominal Exam GI & Abdominal Exam: Soft, Normal Bowel Sounds - Rectal Exam Rectal Exam: NORMAL INSPECTION - Extremities Exam Extremities Exam: Full ROM, Normal Capillary Refill, Normal Inspection, Pedal Edema - Back Exam Back Exam: NORMAL INSPECTION - Neurological Exam Neurological Exam: Alert, Awake, CN II-XII Intact, Oriented x3 Neuro motor strength exam: Left Upper Extremity: 5, Right Upper Extremity: 5, Left Lower Extremity: 5, Right Lower Extremity: 5 - Psychiatric Exam Psychiatric exam: Anxious - Skin Skin Exam: Intact Assessment and Plan (1) Anemia Assessment & Plan: S/P POLYP RESECTION Status: Acute (2) COPD (chronic obstructive pulmonary disease) with emphysema Status: Acute (3) Allergic rhinitis Status: Chronic (4) Diabetes Status: Chronic
[2017-03-30] MEDS: (Novolin R) Insulin Human Regular 100 units/ml vial SC SCH ×4 (00:29→17:16)
--- NOTE | 2017-03-30 00:44 | PN ---
DATE: SUBJECTIVE: The patient denies any chest pain. Sinus tachycardia has improved. He did develop hematuria and required flushing of the Calderon catheter by the urologist. No reported ventricular arrhythmia. PHYSICAL EXAMINATION: VITAL SIGNS: Blood pressure 107/86, heart rate 115, temperature 98.1, respirations 16. HEENT: Pale conjunctivae. CHEST: Bilateral rhonchi. HEART: S1, S2, regular. ABDOMEN: Absent breath sounds. EXTREMITIES: No edema. LABORATORY DATA: Hemoglobin and hematocrit 7.9 and 25.9, white count 12.7, platelet count 130,000. Today, SMA-7 is within normal limits except for glucose of 114 and carbon dioxide of 96. ASSESSMENT: 1. Status port lower anterior resection for sigmoid cecal mass with ileostomy. 2. Chronic obstructive lung disease. 3. Ileus. 4. Sinus tachycardia. 5. Chronic obstructive pulmonary disease. 6. Anemia. 7. Mild hematuria. RECOMMENDATIONS: Continue current bronchodilators. Subcutaneous heparin was withheld earlier, but was resumed after the clearing of hematuria. Continue Solu-Medrol 40 mg intravenously daily, Xanax 0.5 mg p.o. twice day for anxiety and IV Protonix at 40 mg once a day. Mukesh Correia MD
[2017-03-30] MEDS: Albuterol-Ipratrop 3 mg / 0.5 (3 ml) UD INH SCH ×4 (01:59→19:37)
[2017-03-30] MEDS: Lactated Ringer's 1,000 ML IV SCH ×2 (03:29→13:45)
[2017-03-30] MEDS: HYDROmorphone 0.5 mg/0.5 ml ISec IVP PRN ×4 (05:39→20:35)
[2017-03-30 06:23] LABS: BASO % 0.3 % (0.0-2.0); EOS # 0.1 K/uL (0.0-0.7); EOS % 0.9 % (0.0-4.0); LYMPH # 1.2 K/uL (1.0-4.3); LYMPH % 9.6 % (20.0-40.0); MEAN CELL VOLUME 66.6 fL (80.0-94.0); MEAN CORPUSCULAR HEMOGLOBIN 20.3 pg (27.0-31.0); MEAN CORPUSCULAR HGB CONC 30.4 g/dL (33.0-37.0); MEAN PLATELET VOLUME 8.7 fL (7.2-11.7); MONO # 0.9 K/uL (0.0-0.8); MONO % 6.8 % (0.0-10.0); PLATELET COUNT 236 K/uL (130-400); RED CELL DISTRIBUTION WIDTH 30.8 % (11.5-14.5); WHITE BLOOD COUNT 12.7 K/uL (4.8-10.8)
[2017-03-30 06:37] LABS: ALB/GLOB RATIO 1.3 (1.0-2.1); ALKALINE PHOSPHATASE 70 U/L (38-126); ALT/SGPT 54 U/L (21-72); AST/SGOT 26 U/L (17-59); BILIRUBIN,TOTAL 0.4 mg/dL (0.2-1.3); BLOOD UREA NITROGEN 10 mg/dL (9-20); CALCIUM 8.9 mg/dl (8.6-10.4); CARBON DIOXIDE 31 mmol/L (22-30); CHLORIDE 95 mmol/L (98-107); GFR AFRICAN-AMERICAN > 60; GLUCOSE,RANDOM 91 mg/dL (75-110); MAGNESIUM 2.1 mg/dL (1.6-2.3); POTASSIUM 4.3 mmol/L (3.6-5.2); SODIUM 134 mmol/L (132-148); TOTAL PROTEIN 5.4 g/dL (6.3-8.3)
[2017-03-30] MEDS: BROVANA 15 MCG/2 ML INH SCH ×2 (07:17→21:25)
--- NOTE | 2017-03-30 07:43 | CP.PCM.HP ---
History of Present Illness - History of Present Illness History of Present Illness: 65 y/o hm, with advanced copd, came with cough congestion sob, wheezing of 2 days, acute and in resp failure Present on Admission - Present on Admission Any Indicators Present on Admission: Yes History of DVT/PE: No History of Uncontrolled Diabetes: Yes Urinary Catheter: No Decubitus Ulcer Present: No Review of Systems - Review of Systems Systems not reviewed;Unavailable: Respiratory Distress - Constitutional Constitutional: Anorexia, Weakness - Cardiovascular Cardiovascular: Chest Pain, Dyspnea - Respiratory Respiratory: Cough, Dyspnea, Dyspnea on Exertion, Pain on Inspiration, Chest Congestion, Excessive Mucous Production, Change in Mucous Color - Gastrointestinal Gastrointestinal: Bloating - Psychiatric Psychiatric: Anxiety Past Patient History - Infectious Disease Hx of Infectious Diseases: None - Past Medical History & Family History Past Medical History?: Yes - Past Social History Smoking Status: Former Smoker - CARDIAC Hx Congestive Heart Failure: Yes Hx Hypercholesterolemia: Yes Hx Hypertension: Yes - PULMONARY Hx Chronic Obstructive Pulmonary Disease (COPD): Yes - NEUROLOGICAL Hx Neurological Disorder: No - HEENT Hx HEENT Problems: Yes Hx Cataracts: Yes (left cataract removed, r cataract) Other/Comment: wears eyeglasses for distance - RENAL Hx Chronic Kidney Disease: Yes - ENDOCRINE/METABOLIC Hx Diabetes Mellitus Type 2: Yes - HEMATOLOGICAL/ONCOLOGICAL Hx Blood Disorders: No - INTEGUMENTARY Hx Dermatological Problems: No - MUSCULOSKELETAL/RHEUMATOLOGICAL Hx Arthritis: Yes (BACK; KNEES) - GASTROINTESTINAL Hx Gastritis: No - PSYCHIATRIC Hx Anxiety: Yes Hx Substance Use: No - SURGICAL HISTORY Hx Surgeries: Yes Hx Cardiac Catheterization: Yes (11/2015) - ANESTHESIA Hx Anesthesia: Yes Hx Anesthesia Reactions: Yes (pt dont know. aware) Hx Malignant Hyperthermia: No Meds Allergies/Adverse Reactions: Allergies Allergy/AdvReac Type Severity Reaction Status Date / Time acetaminophen [From Tylenol] Allergy RASH Verified 03/02/17 22:26 FISH Allergy SWELLING Verified 03/02/17 22:26 shrimp Allergy SHORTNESS Verified 03/02/17 22:26 OF BREATH IV dye Allergy ANAPHYLAXIS Uncoded 03/23/17 14:45 Physical Exam - Constitutional Appears: Non-toxic, In Acute Distress - Head Exam Head Exam: ATRAUMATIC, NORMAL INSPECTION, NORMOCEPHALIC - Eye Exam Eye Exam: EOMI, Normal appearance, PERRL Pupil Exam: NORMAL ACCOMODATION - ENT Exam ENT Exam: Mucous Membranes Moist, Normal Exam - Neck Exam Neck exam: Positive for: Normal Inspection - Respiratory Exam Respiratory Exam: Prolonged Expiratory Phase, Rhonchi, Wheezes, Respiratory Distress - Cardiovascular Exam Cardiovascular Exam: Tachycardia, REGULAR RHYTHM, +S1, +S2 - GI/Abdominal Exam GI & Abdominal Exam: Normal Bowel Sounds - Rectal Exam Rectal Exam: NORMAL INSPECTION - Extremities Exam Extremities exam: Positive for: normal capillary refill, normal inspection, pedal edema - Neurological Exam Neurological exam: Alert, CN II-XII Intact, Normal Gait, Oriented x3, Reflexes Normal - Psychiatric Exam Psychiatric exam: Anxious - Skin Skin Exam: Dry Results - Vital Signs Recent Vital Signs: Last Vital Signs Temp 98 F 03/30/17 04:00 Pulse 98 H 03/30/17 07:20 Resp 12 03/30/17 07:20 BP 121/71 03/30/17 06:48 Pulse Ox 100 03/30/17 07:20 - Labs Result Diagrams: 03/30/17 06:16 03/30/17 06:16 Labs: Laboratory Results - last 24 hr 03/29/17 03/29/17 03/29/17 06:27 11:44 17:50 WBC RBC Hgb Hct MCV MCH MCHC RDW Plt Count MPV Neut % (Auto) Lymph % (Auto) [place] % (Auto) Eos % (Auto) Baso % (Auto) Neut # Lymph # [place] # Eos # Baso # Neutrophils % (Manual) 87 H Band Neutrophils % 7 H Lymphocytes % (Manual) 4 L Monocytes % (Manual) 2 Platelet Estimate Normal Hypochromasia (manual) Moderate Poikilocytosis (manual Slight Basophilic Stippling Slight Anisocytosis (manual) Marked Microcytosis (manual) Moderate Ovalocytes Moderate Sodium Potassium Chloride Carbon Dioxide Anion Gap BUN Creatinine Est GFR ( Amer) Est GFR (Non-Af Amer) POC Glucose (mg/dL) 171 H 216 H Random Glucose Calcium Phosphorus Magnesium Total Bilirubin AST ALT Alkaline Phosphatase Total Protein Albumin Globulin Albumin/Globulin Ratio 03/29/17 03/30/17 03/30/17 23:33 05:51 06:16 WBC 12.7 H RBC 3.91 L Hgb 7.9 L Hct 26.0 L MCV 66.6 L MCH 20.3 L MCHC 30.4 L RDW 30.8 H Plt Count 236 MPV 8.7 Neut % (Auto) 82.4 H Lymph % (Auto) 9.6 L [place] % (Auto) 6.8 Eos % (Auto) 0.9 Baso % (Auto) 0.3 Neut # 10.5 H Lymph # 1.2 [place] # 0.9 H Eos # 0.1 Baso # 0.0 Neutrophils % (Manual) Band Neutrophils % Lymphocytes % (Manual) Monocytes % (Manual) Platelet Estimate Hypochromasia (manual) Poikilocytosis (manual Basophilic Stippling Anisocytosis (manual) Microcytosis (manual) Ovalocytes Sodium Potassium Chloride Carbon Dioxide Anion Gap BUN Creatinine Est GFR ( Amer) Est GFR (Non-Af Amer) POC Glucose (mg/dL) 114 H 134 H Random Glucose Calcium Phosphorus Magnesium Total Bilirubin AST ALT Alkaline Phosphatase Total Protein Albumin Globulin Albumin/Globulin Ratio 03/30/17 06:16 WBC RBC Hgb Hct MCV MCH MCHC RDW Plt Count MPV Neut % (Auto) Lymph % (Auto) [place] % (Auto) Eos % (Auto) Baso % (Auto) Neut # Lymph # [place] # Eos # Baso # Neutrophils % (Manual) Band Neutrophils % Lymphocytes % (Manual) Monocytes % (Manual) Platelet Estimate Hypochromasia (manual) Poikilocytosis (manual Basophilic Stippling Anisocytosis (manual) Microcytosis (manual) Ovalocytes Sodium 134 Potassium 4.3 Chloride 95 L Carbon Dioxide 31 H Anion Gap 12 BUN 10 Creatinine 0.8 Est GFR ( Amer) > 60 Est GFR (Non-Af Amer) > 60 POC Glucose (mg/dL) Random Glucose 91 Calcium 8.9 Phosphorus 3.0 Magnesium 2.1 Total Bilirubin 0.4 AST 26 ALT 54 Alkaline Phosphatase 70 Total Protein 5.4 L Albumin 3.0 L Globulin 2.4 Albumin/Globulin Ratio 1.3 Assessment & Plan (1) Anemia Status: Acute Priority: Medium (2) COPD (chronic obstructive pulmonary disease) with emphysema Status: Acute Priority: High (3) Allergic rhinitis Status: Chronic Priority: Medium (4) Diabetes Status: Chronic Priority: Medium
[2017-03-30 08:39] LABS: NEUTROPHIL 82 % (50-75); TOTAL CELLS COUNTED 100
[2017-03-30] MEDS: guaiFENesin 600 mg ER Tab PO SCH ×2 (09:49→17:16)
[2017-03-30] MEDS: Vitamin B Complex/Vitamin C Tab PO SCH (09:49)
[2017-03-30] MEDS: MethylPREDNISolone 40 mg Vial IVP SCH (09:55)
--- NOTE | 2017-03-30 11:09 | CP.PCM.PN ---
Subjective - Date & Time of Evaluation Date of Evaluation: 03/30/17 Time of Evaluation: 07:00 - Subjective Subjective: SURGERY PROGRESS NOTE FOR DR. MANZANO Patient seen and examined at bedside in the ICU. Patient currently OOB to chair. Patient is still experiencing some pain (6/10) that is made better with pain medications reducing it to a 3/10. Pt also admits he has been coughing a lot which also makes his abdomen sore and reproduces the pain. Patient denies flatus and any bowel movements since surgery. Pt has not ambulated yet but did sit in the chair yesterday for four hours. He is using the IS. He is NPO with ice chips. Pt denies nausea or vomiting. NG tube, andrade and araceli drain still in place. Patient up for transfer to floor. Objective - Vital Signs/Intake and Output Vital Signs (last 24 hours): Temp Pulse Resp BP Pulse Ox 98 F 110 H 14 118/79 95 03/30/17 08:00 03/30/17 10:00 03/30/17 10:00 03/30/17 09:48 03/30/17 10:00 Intake and Output: 03/30/17 03/30/17 06:59 18:59 Intake Total 1200 400 Output Total 1030 235 Balance 170 165 - Medications Medications: Current Medications Albuterol/Ipratropium (Duoneb 3 Mg/0.5 Mg (3 Ml) Ud) 3 ml INH RQ6 [facility] Last Admin: 03/30/17 07:17 Dose: 3 ml Alprazolam (Xanax) 0.5 mg PO BID PRN PRN Reason: Anxiety Last Admin: 03/26/17 22:06 Dose: 0.5 mg Docusate Sodium (Colace) 100 mg PO BID [facility] Last Admin: 03/30/17 09:49 Dose: Not Given Fluconazole (Diflucan) 100 mg PO DAILY [facility] Last Admin: 03/30/17 10:02 Dose: Not Given Guaifenesin (Mucinex La) 600 mg PO BID [facility] Last Admin: 03/30/17 09:49 Dose: Not Given Heparin Sodium (Porcine) (Heparin) 5,000 units SC Q12H [facility] Last Admin: 03/30/17 05:40 Dose: 5,000 units Home Med (Patient's Own Inhalation Solution) 1 ml INH RBID [facility] Last Admin: 03/30/17 07:17 Dose: 1 ml Hydromorphone HCl (Dilaudid) 0.5 mg IVP Q2H PRN PRN Reason: Pain, severe (8-10) Last Admin: 03/30/17 09:55 Dose: 0.5 mg Lactated Ringer's (Lactated Ringer's) 1,000 mls @ 100 mls/hr IV .Q10H [facility] Last Admin: 03/30/17 03:29 Dose: 100 mls/hr Insulin Glargine (Lantus) 16 unit SC [facility] Last Admin: 03/26/17 22:06 Dose: Not Given Insulin Human Regular (Novolin R) 0 unit SC Q6H [facility] PRN Reason: Protocol Last Admin: 03/30/17 05:57 Dose: Not Given Metformin HCl (Glucophage) 1,000 mg PO BID [facility] Last Admin: 03/30/17 09:49 Dose: Not Given Methylprednisolone (Solu-Medrol) 40 mg IVP DAILY [facility] Last Admin: 03/30/17 09:55 Dose: 40 mg Montelukast Sodium (Singulair) 10 mg PO HS [facility] Last Admin: 03/29/17 22:42 Dose: Not Given Ondansetron HCl (Zofran Inj) 4 mg IVP Q4 PRN PRN Reason: Nausea/Vomiting Pantoprazole Sodium (Protonix Inj) 40 mg IVP DAILY [facility] Last Admin: 03/30/17 09:54 Dose: 40 mg Polyethylene Glycol (Miralax) 17 gm PO DAILY [facility] Last Admin: 03/25/17 09:25 Dose: 17 gm Pregabalin (Lyrica) 50 mg PO BID [facility] Last Admin: 03/30/17 09:49 Dose: Not Given Roflumilast (Daliresp) 500 mcg PO DAILY [facility] Last Admin: 03/30/17 10:02 Dose: Not Given Vitamin B Complex/Vitamin C (Berocca) 1 tab PO DAILY [facility] Last Admin: 03/30/17 09:49 Dose: Not Given - Labs Labs: 03/30/17 06:16 03/30/17 06:16 PT 11.7 SECONDS (9.7-12.2) 03/27/17 07:00 INR 1.0 03/27/17 07:00 APTT 27 SECONDS (21-34) 03/27/17 07:00 - Constitutional Appears: Non-toxic, No Acute Distress - Head Exam Head Exam: ATRAUMATIC, NORMAL INSPECTION - Respiratory Exam Respiratory Exam: Clear to Ausculation Bilateral, NORMAL BREATHING PATTERN. absent: Respiratory Distress - Cardiovascular Exam Cardiovascular Exam: Tachycardia, +S1, +S2 - GI/Abdominal Exam GI & Abdominal Exam: Distended, Tenderness, Normal Bowel Sounds. absent: Guarding, Rigid Additional comments: Tenderness around the incision Dressings clean/dry/intact Araceli drain with 25cc serosanguinous drainage over the past mail opener. NG tube in place on suction with 100cc drainage over mail opener. Ileostomy bag with small amount serosanguinous, no fecal matter. Andrade catheter with serosanguinous drainage. 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 - Afebrile, tachycardic - Leukocytosis remained same at 12.7 - Hgb remained same at 7.9, will continue to monitor CBC - Araceli drain with serosanguinous drainage 25cc over mail opener - Ileostomy bag with minimal serosanguinous drainage, no stool output yet - Andrade in place - PT ordered - Continue Heparin BID - Continue pain control PRN - Strongly encourage continued use of IS and need for ambulation. - Will continue to monitor for return of bowel function - Once patient has output into ostomy bag, NG tube can be removed - Continue DVT prophylaxis - Discussed plan with Dr. Manzano. Christine Steven PGY-3
--- NOTE | 2017-03-30 13:45 | PN ---
SUBJECTIVE: The patient's hematuria has improved. Calderon catheter was removed. Still mild sinus tachycardia, mildly short of breath. No chest pain. PHYSICAL EXAMINATION: VITAL SIGNS: Blood pressure 116/63, heart rate 103, temperature 98. HEENT: Pale conjunctivae. CHEST: Bilateral rhonchi. HEART: S1 and S2, regular. ABDOMEN: Absent bowel sounds. EXTREMITIES: No edema. LABORATORY DATA: Hemoglobin and hematocrit 7.9 and 26.0, white count 12.7, platelet count 136,000. SMA-7: Sodium 134, potassium 4.3, chloride 95, CO2 of 31, glucose 91, BUN 10, creatinine 0.8. ASSESSMENT: 1. 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 2. Chronic obstructive lung disease. 3. Secondary pulmonary hypertension and mild right-sided failure. RECOMMENDATIONS: Continue current bronchodilators. Continue Solu-Medrol 40 mg twice daily. Protonix 40 mg once a day. Subcutaneous heparin 5000 units twice a day. The patient can be transfer to telemetry. Mukesh Correia MD
--- NOTE | 2017-03-30 19:42 | HP ---
CHIEF COMPLAINT: Shortness of breath. HISTORY OF PRESENT ILLNESS: This is a 66-year-old male, well known to me, with a history of COPD, steroid-induced diabetes, generalized anxiety disorder, allergic rhinitis, who came to emergency room with cough, congestion, shortness of breath, wheezing, chills, rigors, generalized weakness, tiredness, anorexia, malaise, and fatigue. The patient has cough. He has thick sputum production. He has chest congestion. He has chest pain. He feels weak. He feels body aches, chills, headaches. ALLERGIES: ACETAMINOPHEN. PAST MEDICAL HISTORY: COPD, steroid-induced diabetes, anxiety, allergic rhinitis. SOCIAL HISTORY: Ex-smoker. FAMILY HISTORY: Negative for premature COPD. PHYSICAL EXAMINATION GENERAL: This is an elderly male, in moderate distress, on BiPAP. SKIN: Bruises. No purpura, no petechiae. HEENT: Atraumatic, normocephalic. NECK: Supple. Using accessory muscles. CVS: S1, S2 regular, tachycardic. LUNGS: Bilateral expiratory rhonchi, decreased air entry. ABDOMEN: Soft, nontender. Bowel sounds are positive. RECTAL: Enlarged prostate. No masses, no bleeding. EXTREMITIES: +1 pitting edema. STRIPE MARKER: Awake, alert, and oriented x3, anxious. ASSESSMENT: 1. Acute on chronic respiratory failure. 2. Steroid-induced diabetes. 3. Tracheobronchitis. 4. Anxiety. 5. Allergic rhinitis. PLAN: Admit, BiPAP nebulizer, Solu-Medrol, oxygen. Hal Garcia MD
--- NOTE | 2017-03-30 23:44 | CP.PCM.PN ---
Subjective - Date & Time of Evaluation Date of Evaluation: 03/30/17 - Subjective Subjective: FEELS ABDOMINAL PAIN, DRAIN IN PLACE, LESS COUGH,LESS CONGESTED, NO FEVER, NPO Objective - Vital Signs/Intake and Output Vital Signs (last 24 hours): Temp Pulse Resp BP Pulse Ox 98.3 F 108 H 20 154/66 H 97 03/30/17 16:00 03/30/17 16:00 03/30/17 16:00 03/30/17 16:00 03/30/17 16:00 Intake and Output: 03/30/17 03/31/17 18:59 06:59 Intake Total 800 Output Total 420 Balance 380 - Medications Medications: Current Medications Albuterol/Ipratropium (Duoneb 3 Mg/0.5 Mg (3 Ml) Ud) 3 ml INH RQ6 [facility] Last Admin: 03/30/17 19:37 Dose: 3 ml Alprazolam (Xanax) 0.5 mg PO BID PRN PRN Reason: Anxiety Last Admin: 03/26/17 22:06 Dose: 0.5 mg Docusate Sodium (Colace) 100 mg PO BID [facility] Last Admin: 03/30/17 17:15 Dose: Not Given Fluconazole (Diflucan) 100 mg PO DAILY [facility] Last Admin: 03/30/17 10:02 Dose: Not Given Guaifenesin (Mucinex La) 600 mg PO BID [facility] Last Admin: 03/30/17 17:16 Dose: Not Given Heparin Sodium (Porcine) (Heparin) 5,000 units SC Q12H [facility] Last Admin: 03/30/17 17:13 Dose: 5,000 units Home Med (Patient's Own Inhalation Solution) 1 ml INH RBID [facility] Last Admin: 03/30/17 21:25 Dose: Not Given Hydromorphone HCl (Dilaudid) 0.5 mg IVP Q2H PRN PRN Reason: Pain, severe (8-10) Last Admin: 03/30/17 20:35 Dose: 0.5 mg Lactated Ringer's (Lactated Ringer's) 1,000 mls @ 100 mls/hr IV .Q10H [facility] Last Admin: 03/30/17 13:45 Dose: 100 mls/hr Insulin Glargine (Lantus) 16 unit SC HS [facility] Last Admin: 03/26/17 22:06 Dose: Not Given Insulin Human Regular (Novolin R) 0 unit SC Q6H [facility] PRN Reason: Protocol Last Admin: 03/30/17 17:16 Dose: Not Given Metformin HCl (Glucophage) 1,000 mg PO BID [facility] Last Admin: 03/30/17 17:16 Dose: Not Given Methylprednisolone (Solu-Medrol) 40 mg IVP DAILY [facility] Last Admin: 03/30/17 09:55 Dose: 40 mg Montelukast Sodium (Singulair) 10 mg PO HS [facility] Last Admin: 03/30/17 22:41 Dose: Not Given Ondansetron HCl (Zofran Inj) 4 mg IVP Q4 PRN PRN Reason: Nausea/Vomiting Pantoprazole Sodium (Protonix Inj) 40 mg IVP DAILY [facility] Last Admin: 03/30/17 09:54 Dose: 40 mg Polyethylene Glycol (Miralax) 17 gm PO DAILY [facility] Last Admin: 03/25/17 09:25 Dose: 17 gm Pregabalin (Lyrica) 50 mg PO BID [facility] Last Admin: 03/30/17 17:16 Dose: Not Given Roflumilast (Daliresp) 500 mcg PO DAILY [facility] Last Admin: 03/30/17 10:02 Dose: Not Given Vitamin B Complex/Vitamin C (Berocca) 1 tab PO DAILY [facility] Last Admin: 03/30/17 09:49 Dose: Not Given - Labs Labs: 03/30/17 06:16 03/30/17 06:16 PT 11.7 SECONDS (9.7-12.2) 03/27/17 07:00 INR 1.0 03/27/17 07:00 APTT 27 SECONDS (21-34) 03/27/17 07:00 - Constitutional Appears: Non-toxic, In Acute Distress, Chronically Ill - Head Exam Head Exam: ATRAUMATIC, NORMAL INSPECTION, NORMOCEPHALIC - Eye Exam Eye Exam: EOMI, Normal appearance, PERRL Pupil Exam: NORMAL ACCOMODATION - ENT Exam ENT Exam: Mucous Membranes Moist, Normal Exam, Normal Oropharynx, TM's Normal Bilaterally - Neck Exam Neck Exam: Normal Inspection - Respiratory Exam Respiratory Exam: Decreased Breath Sounds, Rhonchi, Respiratory Distress - Cardiovascular Exam Cardiovascular Exam: REGULAR RHYTHM, +S1, +S2 - GI/Abdominal Exam GI & Abdominal Exam: Distended, Diminished Bowel Sounds - Rectal Exam Rectal Exam: NORMAL INSPECTION - Extremities Exam Extremities Exam: Normal Capillary Refill - Neurological Exam Neurological Exam: Awake, CN II-XII Intact, Oriented x3 - Skin Skin Exam: Dry Assessment and Plan (1) Anemia Assessment & Plan: S/O ADENOMA, RESECTION Status: Chronic (2) COPD (chronic obstructive pulmonary disease) with emphysema Status: Acute (3) Allergic rhinitis Status: Chronic (4) Diabetes Status: Chronic
[2017-03-31] MEDS: Lactated Ringer's 1,000 ML IV SCH ×4 (00:50→22:56)
--- NOTE | 2017-03-31 01:05 | CP.PCM.PN ---
Subjective - Date & Time of Evaluation Date of Evaluation: 03/31/17 Time of Evaluation: 01:02 - Subjective Subjective: SURGERY NOTE FOR DR. MANZANO 66M seen and examined at bedside. Patient states pain is minimal. denies nausea , vomiting. States he would like to try something PO. Objective - Vital Signs/Intake and Output Vital Signs (last 24 hours): Temp Pulse Resp BP Pulse Ox 98.3 F 100 H 20 154/66 H 97 03/30/17 16:00 03/30/17 16:00 03/30/17 16:00 03/30/17 16:00 03/30/17 16:00 Intake and Output: 03/30/17 03/31/17 18:59 06:59 Intake Total 800 Output Total 420 Balance 380 - Medications Medications: Current Medications Albuterol/Ipratropium (Duoneb 3 Mg/0.5 Mg (3 Ml) Ud) 3 ml INH RQ6 [facility] Last Admin: 03/30/17 19:37 Dose: 3 ml Alprazolam (Xanax) 0.5 mg PO BID PRN PRN Reason: Anxiety Last Admin: 03/26/17 22:06 Dose: 0.5 mg Docusate Sodium (Colace) 100 mg PO BID [facility] Last Admin: 03/30/17 17:15 Dose: Not Given Fluconazole (Diflucan) 100 mg PO DAILY [facility] Last Admin: 03/30/17 10:02 Dose: Not Given Guaifenesin (Mucinex La) 600 mg PO BID [facility] Last Admin: 03/30/17 17:16 Dose: Not Given Heparin Sodium (Porcine) (Heparin) 5,000 units SC Q12H [facility] Last Admin: 03/30/17 17:13 Dose: 5,000 units Home Med (Patient's Own Inhalation Solution) 1 ml INH RBID [facility] Last Admin: 03/30/17 21:25 Dose: Not Given Hydromorphone HCl (Dilaudid) 0.5 mg IVP Q2H PRN PRN Reason: Pain, severe (8-10) Last Admin: 03/30/17 20:35 Dose: 0.5 mg Lactated Ringer's (Lactated Ringer's) 1,000 mls @ 100 mls/hr IV .Q10H [facility] Last Admin: 03/30/17 13:45 Dose: 100 mls/hr Insulin Glargine (Lantus) 16 unit SC HS [facility] Last Admin: 03/26/17 22:06 Dose: Not Given Insulin Human Regular (Novolin R) 0 unit SC Q6H [facility] PRN Reason: Protocol Last Admin: 03/30/17 17:16 Dose: Not Given Metformin HCl (Glucophage) 1,000 mg PO BID [facility] Last Admin: 03/30/17 17:16 Dose: Not Given Methylprednisolone (Solu-Medrol) 40 mg IVP DAILY [facility] Last Admin: 03/30/17 09:55 Dose: 40 mg Montelukast Sodium (Singulair) 10 mg PO HS [facility] Last Admin: 03/30/17 22:41 Dose: Not Given Ondansetron HCl (Zofran Inj) 4 mg IVP Q4 PRN PRN Reason: Nausea/Vomiting Pantoprazole Sodium (Protonix Inj) 40 mg IVP DAILY [facility] Last Admin: 03/30/17 09:54 Dose: 40 mg Polyethylene Glycol (Miralax) 17 gm PO DAILY [facility] Last Admin: 03/25/17 09:25 Dose: 17 gm Pregabalin (Lyrica) 50 mg PO BID [facility] Last Admin: 03/30/17 17:16 Dose: Not Given Roflumilast (Daliresp) 500 mcg PO DAILY [facility] Last Admin: 03/30/17 10:02 Dose: Not Given Vitamin B Complex/Vitamin C (Berocca) 1 tab PO DAILY [facility] Last Admin: 03/30/17 09:49 Dose: Not Given - Labs Labs: 03/30/17 06:16 03/30/17 06:16 PT 11.7 SECONDS (9.7-12.2) 03/27/17 07:00 INR 1.0 03/27/17 07:00 APTT 27 SECONDS (21-34) 03/27/17 07:00 - Constitutional Appears: Non-toxic, No Acute Distress - Respiratory Exam Respiratory Exam: Clear to Ausculation Bilateral, NORMAL BREATHING PATTERN - Cardiovascular Exam Cardiovascular Exam: REGULAR RHYTHM, +S1, +S2 - GI/Abdominal Exam GI & Abdominal Exam: Soft, Tenderness. absent: Distended, Firm, Guarding, Rigid , Rebound Additional comments: dressing is CDI. 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 - Monitor bowel function - Once patient has output into ostomy bag, NG tube can be removed - DVT prophylaxis Further recs discuss with Dr. Emilia Harding, PGY2
[2017-03-31] MEDS: (Novolin R) Insulin Human Regular 100 units/ml vial SC SCH ×5 (01:49→23:46)
[2017-03-31] MEDS: Albuterol-Ipratrop 3 mg / 0.5 (3 ml) UD INH SCH ×4 (02:52→19:25)
[2017-03-31] MEDS: HYDROmorphone 0.5 mg/0.5 ml ISec IVP PRN ×2 (07:10→17:51)
[2017-03-31] MEDS: BROVANA 15 MCG/2 ML INH SCH ×2 (08:26→19:25)
[2017-03-31] MEDS: MethylPREDNISolone 40 mg Vial IVP SCH (10:28)
[2017-03-31] MEDS: Vitamin B Complex/Vitamin C Tab PO SCH (10:28)
[2017-03-31] MEDS: guaiFENesin 600 mg ER Tab PO SCH ×2 (10:29→19:50)
--- NOTE | 2017-03-31 20:30 | PN ---
SUBJECTIVE: The patient denies chest pain. He feels anxious. No reported ventricular arrhythmia. PHYSICAL EXAMINATION: VITAL SIGNS: Blood pressure 142/83, heart rate 97, temperature 98.2, respiration 20. HEENT: Pale conjunctivae. CHEST: Minimal rhonchi. HEART: S1 and S2, regular. ABDOMEN: Diminished bowel sounds. EXTREMITIES: No pedal edema. ASSESSMENT: 1. Status post lower anterior resection for sigmoid and cecal mass. 2. Chronic obstructive lung disease. 3. Secondary pulmonary hypertension and mild right-sided failure. RECOMMENDATIONS: Continue current p.r.n. IV Dilaudid, continue subcutaneous heparin 5000 units twice a day, Solu-Medrol once a day. The patient will be started on clear liquids today. Mukesh Correia MD
[2017-04-01] MEDS: HYDROmorphone 0.5 mg/0.5 ml ISec IVP PRN ×4 (01:14→20:19)
[2017-04-01] MEDS: Albuterol-Ipratrop 3 mg / 0.5 (3 ml) UD INH SCH ×4 (01:52→19:17)
[2017-04-01] MEDS: Lactated Ringer's 1,000 ML IV SCH ×2 (05:16→14:18)
[2017-04-01] MEDS: (Novolin R) Insulin Human Regular 100 units/ml vial SC SCH ×3 (06:12→18:39)
[2017-04-01] MEDS: BROVANA 15 MCG/2 ML INH SCH ×2 (07:43→19:17)
[2017-04-01] MEDS: guaiFENesin 600 mg ER Tab PO SCH ×2 (10:27→18:39)
[2017-04-01] MEDS: MethylPREDNISolone 40 mg Vial IVP SCH (10:28)
[2017-04-01] MEDS: Vitamin B Complex/Vitamin C Tab PO SCH (10:28)
[2017-04-01 11:53] LABS: HEMATOCRIT 28.3 % (35.0-51.0); MEAN CELL VOLUME 66.8 fL (80.0-94.0); MEAN CORPUSCULAR HEMOGLOBIN 20.5 pg (27.0-31.0); MEAN CORPUSCULAR HGB CONC 30.7 g/dL (33.0-37.0); MEAN PLATELET VOLUME 8.6 fL (7.2-11.7); RED CELL DISTRIBUTION WIDTH 31.9 % (11.5-14.5); WHITE BLOOD COUNT 7.8 K/uL (4.8-10.8)
[2017-04-01 11:58] LABS: CHLORIDE 95 mmol/L (98-107); POTASSIUM 3.7 mmol/L (3.6-5.2); SODIUM 136 mmol/L (132-148)
[2017-04-01 12:01] LABS: BLOOD UREA NITROGEN 6 mg/dL (9-20); CARBON DIOXIDE 33 mmol/L (22-30); GFR AFRICAN-AMERICAN > 60
[2017-04-01 12:02] LABS: CALCIUM 8.7 mg/dl (8.6-10.4); GLUCOSE,RANDOM 209 mg/dL (75-110)
--- NOTE | 2017-04-01 13:27 | CP.PCM.PN ---
Subjective - Date & Time of Evaluation Date of Evaluation: 04/01/17 Time of Evaluation: 07:00 - Subjective Subjective: General Surgery Pt S&E, NAEO. 150cc green-brown output from ostomy, Ezra 100cc serosanguinous. no complaints at this time Objective - Vital Signs/Intake and Output Vital Signs (last 24 hours): Temp Pulse Resp BP Pulse Ox 97.7 F 92 H 20 136/85 100 04/01/17 08:08 04/01/17 08:08 04/01/17 08:08 04/01/17 08:08 04/01/17 08:08 Intake and Output: 04/01/17 04/01/17 06:59 18:59 Intake Total 1850 Output Total 1400 Balance 450 - Medications Medications: Current Medications Albuterol/Ipratropium (Duoneb 3 Mg/0.5 Mg (3 Ml) Ud) 3 ml INH RQ6 [facility] Last Admin: 04/01/17 07:43 Dose: 3 ml Alprazolam (Xanax) 0.5 mg PO BID PRN PRN Reason: Anxiety Last Admin: 04/01/17 10:27 Dose: 0.5 mg Docusate Sodium (Colace) 100 mg PO BID [facility] Last Admin: 04/01/17 10:28 Dose: 100 mg Fluconazole (Diflucan) 100 mg PO DAILY [facility] Last Admin: 04/01/17 10:27 Dose: 100 mg Guaifenesin (Mucinex La) 600 mg PO BID [facility] Last Admin: 04/01/17 10:27 Dose: 600 mg Home Med (Patient's Own Inhalation Solution) 1 ml INH RBID [facility] Last Admin: 04/01/17 07:43 Dose: 1 ml Hydromorphone HCl (Dilaudid) 0.5 mg IVP Q2H PRN PRN Reason: Pain, severe (8-10) Last Admin: 04/01/17 06:17 Dose: 0.5 mg Lactated Ringer's (Lactated Ringer's) 1,000 mls @ 100 mls/hr IV .Q10H [facility] Last Admin: 04/01/17 05:16 Dose: 100 mls/hr Insulin Glargine (Lantus) 16 unit SC HS [facility] Last Admin: 03/26/17 22:06 Dose: Not Given Insulin Human Regular (Novolin R) 0 unit SC Q6H [facility] PRN Reason: Protocol Last Admin: 04/01/17 06:12 Dose: Not Given Metformin HCl (Glucophage) 1,000 mg PO BID [facility] Last Admin: 04/01/17 10:27 Dose: 1,000 mg Methylprednisolone (Solu-Medrol) 40 mg IVP DAILY [facility] Last Admin: 04/01/17 10:28 Dose: 40 mg Montelukast Sodium (Singulair) 10 mg PO HS [facility] Last Admin: 03/31/17 22:56 Dose: Not Given Ondansetron HCl (Zofran Inj) 4 mg IVP Q4 PRN PRN Reason: Nausea/Vomiting Pantoprazole Sodium (Protonix Inj) 40 mg IVP DAILY [facility] Last Admin: 04/01/17 10:28 Dose: 40 mg Polyethylene Glycol (Miralax) 17 gm PO DAILY [facility] Last Admin: 03/25/17 09:25 Dose: 17 gm Pregabalin (Lyrica) 50 mg PO BID [facility] Last Admin: 04/01/17 10:28 Dose: 50 mg Roflumilast (Daliresp) 500 mcg PO DAILY [facility] Last Admin: 04/01/17 10:28 Dose: 500 mcg Vitamin B Complex/Vitamin C (Berocca) 1 tab PO DAILY [facility] Last Admin: 04/01/17 10:28 Dose: 1 tab - Labs Labs: 04/01/17 11:47 04/01/17 11:47 PT 11.7 SECONDS (9.7-12.2) 03/27/17 07:00 INR 1.0 03/27/17 07:00 APTT 27 SECONDS (21-34) 03/27/17 07:00 - Constitutional Appears: Non-toxic, No Acute Distress - Head Exam Head Exam: ATRAUMATIC, NORMOCEPHALIC - Respiratory Exam Respiratory Exam: NORMAL BREATHING PATTERN. absent: Respiratory Distress - GI/Abdominal Exam GI & Abdominal Exam: Distended (mild), Soft. absent: Firm, Guarding, Rigid, Tenderness Additional comments: dressing in place - Neurological Exam Neurological Exam: Alert, Awake - Skin Skin Exam: Dry, Warm Assessment and Plan - Assessment and Plan (Free Text) Assessment: 66M s/p low anterior resection with loop ileostomy POD #5 Plan: - Encourage continued use of IS and need for ambulation. - Monitor bowel function - DCed NGT - DVT prophylaxis D/W Dr. Emilia Campos PGY4
--- NOTE | 2017-04-01 15:37 | CP.PCM.PN ---
Subjective - Date & Time of Evaluation Date of Evaluation: 04/01/17 Time of Evaluation: 13:00 - Subjective Subjective: Patient seen and examined. Complaining of abdominal discomfort Denies shortness of breath, denies cough, denies fever or chills Objective - Vital Signs/Intake and Output Vital Signs (last 24 hours): Temp Pulse Resp BP Pulse Ox 97.7 F 92 H 20 136/85 100 04/01/17 08:08 04/01/17 08:08 04/01/17 08:08 04/01/17 08:08 04/01/17 08:08 Intake and Output: 04/01/17 04/01/17 06:59 18:59 Intake Total 1850 Output Total 1400 Balance 450 - Medications Medications: Current Medications Albuterol/Ipratropium (Duoneb 3 Mg/0.5 Mg (3 Ml) Ud) 3 ml INH RQ6 [facility] Last Admin: 04/01/17 13:41 Dose: 3 ml Alprazolam (Xanax) 0.5 mg PO BID PRN PRN Reason: Anxiety Last Admin: 04/01/17 10:27 Dose: 0.5 mg Docusate Sodium (Colace) 100 mg PO BID [facility] Last Admin: 04/01/17 10:28 Dose: 100 mg Fluconazole (Diflucan) 100 mg PO DAILY [facility] Last Admin: 04/01/17 10:27 Dose: 100 mg Guaifenesin (Mucinex La) 600 mg PO BID [facility] Last Admin: 04/01/17 10:27 Dose: 600 mg Home Med (Patient's Own Inhalation Solution) 1 ml INH RBID [facility] Last Admin: 04/01/17 07:43 Dose: 1 ml Hydromorphone HCl (Dilaudid) 0.5 mg IVP Q2H PRN PRN Reason: Pain, severe (8-10) Last Admin: 04/01/17 14:23 Dose: 0.5 mg Lactated Ringer's (Lactated Ringer's) 1,000 mls @ 100 mls/hr IV .Q10H [facility] Last Admin: 04/01/17 14:18 Dose: 100 mls/hr Insulin Glargine (Lantus) 16 unit SC HS [facility] Last Admin: 03/26/17 22:06 Dose: Not Given Insulin Human Regular (Novolin R) 0 unit SC Q6H [facility] PRN Reason: Protocol Last Admin: 04/01/17 13:00 Dose: 2 unit Metformin HCl (Glucophage) 1,000 mg PO BID [facility] Last Admin: 04/01/17 10:27 Dose: 1,000 mg Methylprednisolone (Solu-Medrol) 40 mg IVP DAILY [facility] Last Admin: 04/01/17 10:28 Dose: 40 mg Montelukast Sodium (Singulair) 10 mg PO HS [facility] Last Admin: 03/31/17 22:56 Dose: Not Given Ondansetron HCl (Zofran Inj) 4 mg IVP Q4 PRN PRN Reason: Nausea/Vomiting Pantoprazole Sodium (Protonix Inj) 40 mg IVP DAILY [facility] Last Admin: 04/01/17 10:28 Dose: 40 mg Polyethylene Glycol (Miralax) 17 gm PO DAILY [facility] Last Admin: 03/25/17 09:25 Dose: 17 gm Pregabalin (Lyrica) 50 mg PO BID [facility] Last Admin: 04/01/17 10:28 Dose: 50 mg Roflumilast (Daliresp) 500 mcg PO DAILY [facility] Last Admin: 04/01/17 10:28 Dose: 500 mcg Vitamin B Complex/Vitamin C (Berocca) 1 tab PO DAILY [facility] Last Admin: 04/01/17 10:28 Dose: 1 tab - Labs Labs: 04/01/17 11:47 04/01/17 11:47 PT 11.7 SECONDS (9.7-12.2) 03/27/17 07:00 INR 1.0 03/27/17 07:00 APTT 27 SECONDS (21-34) 03/27/17 07:00 - Head Exam Head Exam: ATRAUMATIC, NORMOCEPHALIC - Eye Exam Eye Exam: Normal appearance - ENT Exam ENT Exam: Mucous Membranes Moist - Neck Exam Neck Exam: Normal Inspection - Respiratory Exam Respiratory Exam: Decreased Breath Sounds - Cardiovascular Exam Cardiovascular Exam: REGULAR RHYTHM Assessment and Plan (1) COPD (chronic obstructive pulmonary disease) with emphysema Assessment & Plan: Continue nebulizer treatment and steroids Follow-up if necessary BiPAP at night Status: Acute (2) Acute respiratory distress Status: Acute
--- NOTE | 2017-04-01 22:02 | CP.PCM.PN ---
Subjective - Date & Time of Evaluation Date of Evaluation: 03/31/17 - Subjective Subjective: SEEN BY SURGERY, NO SOB, COUGH, NGT WITH SUCTION, NO FEVER, SUGARS NOT TOO HIGH Objective - Vital Signs/Intake and Output Vital Signs (last 24 hours): Temp Pulse Resp BP Pulse Ox 98.4 F 94 H 20 114/71 97 04/01/17 16:59 04/01/17 16:59 04/01/17 16:59 04/01/17 16:59 04/01/17 16:59 Intake and Output: 04/01/17 04/02/17 18:59 06:59 Intake Total 1400 Output Total 970 500 Balance 430 -500 - Medications Medications: Current Medications Albuterol/Ipratropium (Duoneb 3 Mg/0.5 Mg (3 Ml) Ud) 3 ml INH RQ6 [facility] Last Admin: 04/01/17 19:17 Dose: 3 ml Alprazolam (Xanax) 0.5 mg PO BID PRN PRN Reason: Anxiety Last Admin: 04/01/17 10:27 Dose: 0.5 mg Docusate Sodium (Colace) 100 mg PO BID [facility] Last Admin: 04/01/17 18:39 Dose: 100 mg Fluconazole (Diflucan) 100 mg PO DAILY [facility] Last Admin: 04/01/17 10:27 Dose: 100 mg Guaifenesin (Mucinex La) 600 mg PO BID [facility] Last Admin: 04/01/17 18:39 Dose: 600 mg Home Med (Patient's Own Inhalation Solution) 1 ml INH RBID [facility] Last Admin: 04/01/17 19:17 Dose: 1 ml Hydromorphone HCl (Dilaudid) 0.5 mg IVP Q2H PRN PRN Reason: Pain, severe (8-10) Last Admin: 04/01/17 20:19 Dose: 0.5 mg Insulin Glargine (Lantus) 16 unit SC HS [facility] Last Admin: 03/26/17 22:06 Dose: Not Given Insulin Human Regular (Novolin R) 0 unit SC Q6H [facility] PRN Reason: Protocol Last Admin: 04/01/17 18:39 Dose: 2 unit Metformin HCl (Glucophage) 1,000 mg PO BID [facility] Last Admin: 04/01/17 18:39 Dose: 1,000 mg Methylprednisolone (Solu-Medrol) 40 mg IVP DAILY [facility] Last Admin: 04/01/17 10:28 Dose: 40 mg Montelukast Sodium (Singulair) 10 mg PO HS [facility] Last Admin: 03/31/17 22:56 Dose: Not Given Ondansetron HCl (Zofran Inj) 4 mg IVP Q4 PRN PRN Reason: Nausea/Vomiting Pantoprazole Sodium (Protonix Inj) 40 mg IVP DAILY [facility] Last Admin: 04/01/17 10:28 Dose: 40 mg Polyethylene Glycol (Miralax) 17 gm PO DAILY [facility] Last Admin: 03/25/17 09:25 Dose: 17 gm Pregabalin (Lyrica) 50 mg PO BID [facility] Last Admin: 04/01/17 18:39 Dose: 50 mg Roflumilast (Daliresp) 500 mcg PO DAILY [facility] Last Admin: 04/01/17 10:28 Dose: 500 mcg Vitamin B Complex/Vitamin C (Berocca) 1 tab PO DAILY [facility] Last Admin: 04/01/17 10:28 Dose: 1 tab - Labs Labs: 04/01/17 11:47 04/01/17 11:47 PT 11.7 SECONDS (9.7-12.2) 03/27/17 07:00 INR 1.0 03/27/17 07:00 APTT 27 SECONDS (21-34) 03/27/17 07:00 - Constitutional Appears: Non-toxic, No Acute Distress, Chronically Ill - Head Exam Head Exam: ATRAUMATIC, NORMAL INSPECTION, NORMOCEPHALIC - Eye Exam Eye Exam: EOMI, Normal appearance - ENT Exam ENT Exam: Mucous Membranes Moist, Normal Exam - Neck Exam Neck Exam: Normal Inspection - Respiratory Exam Respiratory Exam: Rhonchi, NORMAL BREATHING PATTERN - Cardiovascular Exam Cardiovascular Exam: Tachycardia, REGULAR RHYTHM, +S1, +S2 - GI/Abdominal Exam GI & Abdominal Exam: Distended, Soft, Normal Bowel Sounds - Rectal Exam Rectal Exam: NORMAL INSPECTION - Extremities Exam Extremities Exam: Full ROM, Normal Capillary Refill, Normal Inspection - Neurological Exam Neurological Exam: Alert, Awake, CN II-XII Intact, Normal Gait, Oriented x3 Neuro motor strength exam: Left Upper Extremity: 5, Right Upper Extremity: 5, Left Lower Extremity: 5, Right Lower Extremity: 5 - Psychiatric Exam Psychiatric exam: Anxious, Flat Affect - Skin Skin Exam: Intact Assessment and Plan (1) Anemia Assessment & Plan: S/O OR, LOW ANTERIOR RESECTION WITH ILEOSTOMY Status: Chronic (2) COPD (chronic obstructive pulmonary disease) with emphysema Status: Acute (3) Allergic rhinitis Status: Chronic (4) Diabetes Status: Chronic
--- NOTE | 2017-04-01 22:03 | CP.PCM.PN ---
Subjective - Date & Time of Evaluation Date of Evaluation: 04/01/17 - Subjective Subjective: SEEN BY SURGERY ON IS, NO FEVER, NO SOB, COUGH Objective - Vital Signs/Intake and Output Vital Signs (last 24 hours): Temp Pulse Resp BP Pulse Ox 98.4 F 94 H 20 114/71 97 04/01/17 16:59 04/01/17 16:59 04/01/17 16:59 04/01/17 16:59 04/01/17 16:59 Intake and Output: 04/01/17 04/02/17 18:59 06:59 Intake Total 1400 Output Total 970 500 Balance 430 -500 - Medications Medications: Current Medications Albuterol/Ipratropium (Duoneb 3 Mg/0.5 Mg (3 Ml) Ud) 3 ml INH RQ6 [facility] Last Admin: 04/01/17 19:17 Dose: 3 ml Alprazolam (Xanax) 0.5 mg PO BID PRN PRN Reason: Anxiety Last Admin: 04/01/17 10:27 Dose: 0.5 mg Docusate Sodium (Colace) 100 mg PO BID [facility] Last Admin: 04/01/17 18:39 Dose: 100 mg Fluconazole (Diflucan) 100 mg PO DAILY [facility] Last Admin: 04/01/17 10:27 Dose: 100 mg Guaifenesin (Mucinex La) 600 mg PO BID [facility] Last Admin: 04/01/17 18:39 Dose: 600 mg Home Med (Patient's Own Inhalation Solution) 1 ml INH RBID [facility] Last Admin: 04/01/17 19:17 Dose: 1 ml Hydromorphone HCl (Dilaudid) 0.5 mg IVP Q2H PRN PRN Reason: Pain, severe (8-10) Last Admin: 04/01/17 20:19 Dose: 0.5 mg Insulin Glargine (Lantus) 16 unit SC HS [facility] Last Admin: 03/26/17 22:06 Dose: Not Given Insulin Human Regular (Novolin R) 0 unit SC Q6H [facility] PRN Reason: Protocol Last Admin: 04/01/17 18:39 Dose: 2 unit Metformin HCl (Glucophage) 1,000 mg PO BID [facility] Last Admin: 04/01/17 18:39 Dose: 1,000 mg Methylprednisolone (Solu-Medrol) 40 mg IVP DAILY [facility] Last Admin: 04/01/17 10:28 Dose: 40 mg Montelukast Sodium (Singulair) 10 mg PO HS [facility] Last Admin: 03/31/17 22:56 Dose: Not Given Ondansetron HCl (Zofran Inj) 4 mg IVP Q4 PRN PRN Reason: Nausea/Vomiting Pantoprazole Sodium (Protonix Inj) 40 mg IVP DAILY [facility] Last Admin: 04/01/17 10:28 Dose: 40 mg Polyethylene Glycol (Miralax) 17 gm PO DAILY [facility] Last Admin: 03/25/17 09:25 Dose: 17 gm Pregabalin (Lyrica) 50 mg PO BID [facility] Last Admin: 04/01/17 18:39 Dose: 50 mg Roflumilast (Daliresp) 500 mcg PO DAILY [facility] Last Admin: 04/01/17 10:28 Dose: 500 mcg Vitamin B Complex/Vitamin C (Berocca) 1 tab PO DAILY [facility] Last Admin: 04/01/17 10:28 Dose: 1 tab - Labs Labs: 04/01/17 11:47 04/01/17 11:47 PT 11.7 SECONDS (9.7-12.2) 03/27/17 07:00 INR 1.0 03/27/17 07:00 APTT 27 SECONDS (21-34) 03/27/17 07:00 - Constitutional Appears: Non-toxic, No Acute Distress, Chronically Ill - Head Exam Head Exam: ATRAUMATIC, NORMAL INSPECTION, NORMOCEPHALIC - Eye Exam Eye Exam: EOMI, Normal appearance Pupil Exam: NORMAL ACCOMODATION - ENT Exam ENT Exam: Mucous Membranes Moist, Normal Exam - Neck Exam Neck Exam: Normal Inspection - Respiratory Exam Respiratory Exam: Rhonchi, NORMAL BREATHING PATTERN - Cardiovascular Exam Cardiovascular Exam: Tachycardia, REGULAR RHYTHM, +S1, +S2 - GI/Abdominal Exam GI & Abdominal Exam: Distended, Soft (POST OP), Normal Bowel Sounds - Rectal Exam Rectal Exam: NORMAL INSPECTION - Extremities Exam Extremities Exam: Full ROM, Normal Capillary Refill, Normal Inspection - Neurological Exam Neurological Exam: Alert, Awake, CN II-XII Intact, Normal Gait, Oriented x3 Neuro motor strength exam: Left Upper Extremity: 5, Right Upper Extremity: 5, Left Lower Extremity: 5, Right Lower Extremity: 5 - Psychiatric Exam Psychiatric exam: Anxious, Normal Mood - Skin Skin Exam: Intact Assessment and Plan (1) Anemia Assessment & Plan: S/P OR Status: Chronic (2) COPD (chronic obstructive pulmonary disease) with emphysema Status: Acute (3) Allergic rhinitis Status: Chronic (4) Diabetes Status: Chronic
--- NOTE | 2017-04-01 22:51 | PN ---
SUBJECTIVE: The patient denies chest pain. He is comfortable on nasal O2. PHYSICAL EXAMINATION: VITAL SIGNS: Blood pressure 136/85, heart rate 92, temperature 97.7, respiration 20. HEENT: Pale conjunctivae. CHEST: Bilateral rhonchi. HEART: S1 and S2, regular. ABDOMEN: Diminished bowel sounds. EXTREMITIES: No edema. LABORATORY DATA: Hemoglobin and hematocrit 8.7 and 28.3, white count and platelet count are within normal limit. SMA-7: Sodium 136, potassium 3.7, chloride 95, CO2 of 33, glucose 109, BUN 6, creatinine 0.5. ASSESSMENT: 1. 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 2. Diabetes mellitus. 3. Hypertension. 4. Chronic obstructive lung disease with secondary pulmonary hypertension. 5. Mild right-sided failure. RECOMMENDATIONS: Continue current bronchodilators and IV Solu-Medrol at 40 mg daily. Continue Protonix at 40 mg once a day. Continue Dilaudid at 0.5 mg *------* every 2 hours p.r.n., Mukesh Correia MD
[2017-04-02] MEDS: Albuterol-Ipratrop 3 mg / 0.5 (3 ml) UD INH SCH ×4 (01:06→19:43)
[2017-04-02] MEDS: Lactated Ringer's 1,000 ML IV SCH ×3 (01:08→22:43)
[2017-04-02] MEDS: (Novolin R) Insulin Human Regular 100 units/ml vial SC SCH ×4 (01:10→17:25)
[2017-04-02] MEDS: HYDROmorphone 0.5 mg/0.5 ml ISec IVP PRN ×3 (01:30→22:36)
[2017-04-02] MEDS: BROVANA 15 MCG/2 ML INH SCH (07:53)
[2017-04-02] MEDS: Vitamin B Complex/Vitamin C Tab PO SCH (09:39)
[2017-04-02] MEDS: MethylPREDNISolone 40 mg Vial IVP SCH (09:40)
[2017-04-02] MEDS: guaiFENesin 600 mg ER Tab PO SCH ×2 (09:40→17:24)
--- NOTE | 2017-04-02 13:33 | CP.PCM.PN ---
<Alaina Steven - Last Filed: 04/02/17 13:38> Subjective - Date & Time of Evaluation Date of Evaluation: 04/02/17 Time of Evaluation: 07:00 - Subjective Subjective: SURGERY PROGRESS NOTE FOR DR. MANZANO Patient seen and examined at bedside. He is tolerating his CLD, denies nausea or vomiting. He is passing gas and stool into his ostomy bag. The NG tube was removed yesterday. He has some left calf pain. He is using his IS and hasn't been OOB in the past 2 days. Objective - Vital Signs/Intake and Output Vital Signs (last 24 hours): Temp Pulse Resp BP Pulse Ox 98.2 F 101 H 18 126/76 99 04/02/17 08:36 04/02/17 08:36 04/02/17 08:36 04/02/17 08:36 04/02/17 08:36 Intake and Output: 04/02/17 04/02/17 06:59 18:59 Intake Total 1300 Output Total 1840 Balance -540 - Medications Medications: Current Medications Albuterol/Ipratropium (Duoneb 3 Mg/0.5 Mg (3 Ml) Ud) 3 ml INH RQ6 [facility] Last Admin: 04/02/17 07:53 Dose: 3 ml Docusate Sodium (Colace) 100 mg PO BID [facility] Last Admin: 04/02/17 09:39 Dose: 100 mg Fluconazole (Diflucan) 100 mg PO DAILY [facility] Last Admin: 04/02/17 09:39 Dose: 100 mg Guaifenesin (Mucinex La) 600 mg PO BID [facility] Last Admin: 04/02/17 09:40 Dose: 600 mg Heparin Sodium (Porcine) (Heparin) 5,000 units SC BID [facility] Home Med (Patient's Own Inhalation Solution) 1 ml INH RBID [facility] Last Admin: 04/02/17 07:53 Dose: 1 ml Hydromorphone HCl (Dilaudid) 0.5 mg IVP Q4 PRN PRN Reason: Pain, severe (8-10) Insulin Glargine (Lantus) 16 unit SC HS [facility] Last Admin: 03/26/17 22:06 Dose: Not Given Insulin Human Regular (Novolin R) 0 unit SC Q6H [facility] PRN Reason: Protocol Last Admin: 04/02/17 12:30 Dose: 2 unit Metformin HCl (Glucophage) 1,000 mg PO BID [facility] Last Admin: 04/02/17 09:39 Dose: 1,000 mg Methylprednisolone (Solu-Medrol) 40 mg IVP DAILY [facility] Last Admin: 04/02/17 09:40 Dose: 40 mg Montelukast Sodium (Singulair) 10 mg PO HS [facility] Last Admin: 04/01/17 23:00 Dose: 10 mg Ondansetron HCl (Zofran Inj) 4 mg IVP Q4 PRN PRN Reason: Nausea/Vomiting Oxycodone HCl (Oxycodone Immediate Release Tab) 5 mg PO Q6 PRN PRN Reason: Pain, moderate (4-7) Pantoprazole Sodium (Protonix Inj) 40 mg IVP DAILY [facility] Last Admin: 04/02/17 09:39 Dose: 40 mg Polyethylene Glycol (Miralax) 17 gm PO DAILY [facility] Last Admin: 03/25/17 09:25 Dose: 17 gm Pregabalin (Lyrica) 50 mg PO BID [facility] Last Admin: 04/02/17 09:40 Dose: 50 mg Roflumilast (Daliresp) 500 mcg PO DAILY [facility] Last Admin: 04/02/17 09:39 Dose: 500 mcg Vitamin B Complex/Vitamin C (Berocca) 1 tab PO DAILY [facility] Last Admin: 04/02/17 09:39 Dose: 1 tab - Labs Labs: 04/01/17 11:47 04/01/17 11:47 PT 11.7 SECONDS (9.7-12.2) 03/27/17 07:00 INR 1.0 03/27/17 07:00 APTT 27 SECONDS (21-34) 03/27/17 07:00 - Constitutional Appears: Non-toxic, No Acute Distress - Head Exam Head Exam: ATRAUMATIC, NORMAL INSPECTION - Respiratory Exam Respiratory Exam: NORMAL BREATHING PATTERN. absent: Respiratory Distress - Cardiovascular Exam Cardiovascular Exam: +S1, +S2 - GI/Abdominal Exam GI & Abdominal Exam: Soft, Tenderness (mild tenderness near incision site). 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 Emilia Steven PGY-3 <Lucho Manzano Jr. - Last Filed: 04/02/17 14:29> Surgical Progress Note - SUBJECTIVE Patient Complaints: path reveals intramucosal carcinoma - OBJECTIVE Intake & Output Last 24 Hours: Intake & Output 04/01/17 04/02/17 04/02/17 22:59 06:59 14:59 Intake Total 1300 Output Total 500 1340 Balance -500 -40 Intake: IV 800 Oral 500 Output: Drainage 140 Left Abdomen 40 Left Nare 100 Urine 500 1200 Urine, Voided 500 1200 - ASSESSMENT Lab Results Last 24 Hours: Laboratory Results - last 24 hr 04/01/17 04/01/17 04/02/17 17:35 21:41 06:43 POC Glucose (mg/dL) 242 H 221 H 106 04/02/17 11:37 POC Glucose (mg/dL) 210 H Objective - Vital Signs/Intake and Output Vital Signs (last 24 hours): Temp Pulse Resp BP Pulse Ox 98.2 F 93 H 18 126/76 99 04/02/17 08:36 04/02/17 10:00 04/02/17 08:36 04/02/17 08:36 04/02/17 08:36 Intake and Output: 04/02/17 04/02/17 06:59 18:59 Intake Total 1300 Output Total 1840 Balance -540 - Medications Medications: Current Medications Albuterol/Ipratropium (Duoneb 3 Mg/0.5 Mg (3 Ml) Ud) 3 ml INH RQ6 [facility] Last Admin: 04/02/17 13:37 Dose: 3 ml Docusate Sodium (Colace) 100 mg PO BID [facility] Last Admin: 04/02/17 09:39 Dose: 100 mg Fluconazole (Diflucan) 100 mg PO DAILY [facility] Last Admin: 04/02/17 09:39 Dose: 100 mg Guaifenesin (Mucinex La) 600 mg PO BID [facility] Last Admin: 04/02/17 09:40 Dose: 600 mg Heparin Sodium (Porcine) (Heparin) 5,000 units SC BID [facility] Home Med (Patient's Own Inhalation Solution) 1 ml INH RBID [facility] Last Admin: 04/02/17 07:53 Dose: 1 ml Hydromorphone HCl (Dilaudid) 0.5 mg IVP Q4 PRN PRN Reason: Pain, severe (8-10) Insulin Glargine (Lantus) 16 unit SC [facility] Last Admin: 03/26/17 22:06 Dose: Not Given Insulin Human Regular (Novolin R) 0 unit SC Q6H [facility] PRN Reason: Protocol Last Admin: 04/02/17 12:30 Dose: 2 unit Metformin HCl (Glucophage) 1,000 mg PO BID [facility] Last Admin: 04/02/17 09:39 Dose: 1,000 mg Methylprednisolone (Solu-Medrol) 40 mg IVP DAILY [facility] Last Admin: 04/02/17 09:40 Dose: 40 mg Montelukast Sodium (Singulair) 10 mg PO HS [facility] Last Admin: 04/01/17 23:00 Dose: 10 mg Ondansetron HCl (Zofran Inj) 4 mg IVP Q4 PRN PRN Reason: Nausea/Vomiting Oxycodone HCl (Oxycodone Immediate Release Tab) 5 mg PO Q6 PRN PRN Reason: Pain, moderate (4-7) Pantoprazole Sodium (Protonix Inj) 40 mg IVP DAILY [facility] Last Admin: 04/02/17 09:39 Dose: 40 mg Polyethylene Glycol (Miralax) 17 gm PO DAILY [facility] Last Admin: 03/25/17 09:25 Dose: 17 gm Pregabalin (Lyrica) 50 mg PO BID [facility] Last Admin: 04/02/17 09:40 Dose: 50 mg Roflumilast (Daliresp) 500 mcg PO DAILY [facility] Last Admin: 04/02/17 09:39 Dose: 500 mcg Vitamin B Complex/Vitamin C (Berocca) 1 tab PO DAILY [facility] Last Admin: 04/02/17 09:39 Dose: 1 tab - Labs Labs: 04/01/17 11:47 04/01/17 11:47 PT 11.7 SECONDS (9.7-12.2) 03/27/17 07:00 INR 1.0 03/27/17 07:00 APTT 27 SECONDS (21-34) 03/27/17 07:00
--- NOTE | 2017-04-02 23:20 | CP.PCM.PN ---
Subjective - Date & Time of Evaluation Date of Evaluation: 04/02/17 - Subjective Subjective: NGT IS OUT, TOLERATING DIET, NO FEVER, NO SOB, POSITIVE COUGH Objective - Vital Signs/Intake and Output Vital Signs (last 24 hours): Temp Pulse Resp BP Pulse Ox 98.2 F 111 H 22 117/79 95 04/02/17 15:11 04/02/17 15:11 04/02/17 15:11 04/02/17 15:11 04/02/17 15:11 Intake and Output: 04/02/17 04/03/17 18:59 06:59 Intake Total 1180 Output Total 290 Balance 890 - Medications Medications: Current Medications Albuterol/Ipratropium (Duoneb 3 Mg/0.5 Mg (3 Ml) Ud) 3 ml INH RQ6 [facility] Last Admin: 04/02/17 19:43 Dose: 3 ml Docusate Sodium (Colace) 100 mg PO BID [facility] Last Admin: 04/02/17 17:25 Dose: 100 mg Fluconazole (Diflucan) 100 mg PO DAILY [facility] Last Admin: 04/02/17 09:39 Dose: 100 mg Guaifenesin (Mucinex La) 600 mg PO BID [facility] Last Admin: 04/02/17 17:24 Dose: 600 mg Heparin Sodium (Porcine) (Heparin) 5,000 units SC BID [facility] Last Admin: 04/02/17 17:25 Dose: 5,000 units Home Med (Patient's Own Inhalation Solution) 1 ml INH RBID [facility] Last Admin: 04/02/17 07:53 Dose: 1 ml Hydromorphone HCl (Dilaudid) 0.5 mg IVP Q4 PRN PRN Reason: Pain, severe (8-10) Last Admin: 04/02/17 22:36 Dose: 0.5 mg Insulin Glargine (Lantus) 16 unit SC HS [facility] Last Admin: 03/26/17 22:06 Dose: Not Given Insulin Human Regular (Novolin R) 0 unit SC Q6H [facility] PRN Reason: Protocol Last Admin: 04/02/17 17:25 Dose: 2 unit Metformin HCl (Glucophage) 1,000 mg PO BID [facility] Last Admin: 04/02/17 17:25 Dose: 1,000 mg Methylprednisolone (Solu-Medrol) 40 mg IVP DAILY [facility] Last Admin: 04/02/17 09:40 Dose: 40 mg Montelukast Sodium (Singulair) 10 mg PO HS [facility] Last Admin: 04/01/17 23:00 Dose: 10 mg Ondansetron HCl (Zofran Inj) 4 mg IVP Q4 PRN PRN Reason: Nausea/Vomiting Oxycodone HCl (Oxycodone Immediate Release Tab) 5 mg PO Q6 PRN PRN Reason: Pain, moderate (4-7) Pantoprazole Sodium (Protonix Inj) 40 mg IVP DAILY [facility] Last Admin: 04/02/17 09:39 Dose: 40 mg Polyethylene Glycol (Miralax) 17 gm PO DAILY [facility] Last Admin: 03/25/17 09:25 Dose: 17 gm Pregabalin (Lyrica) 50 mg PO BID [facility] Last Admin: 04/02/17 17:24 Dose: 50 mg Roflumilast (Daliresp) 500 mcg PO DAILY [facility] Last Admin: 04/02/17 09:39 Dose: 500 mcg Vitamin B Complex/Vitamin C (Berocca) 1 tab PO DAILY [facility] Last Admin: 04/02/17 09:39 Dose: 1 tab - Labs Labs: 04/01/17 11:47 04/01/17 11:47 PT 11.7 SECONDS (9.7-12.2) 03/27/17 07:00 INR 1.0 03/27/17 07:00 APTT 27 SECONDS (21-34) 03/27/17 07:00 - Constitutional Appears: Non-toxic, No Acute Distress, Chronically Ill - Head Exam Head Exam: ATRAUMATIC, NORMAL INSPECTION, NORMOCEPHALIC - Eye Exam Eye Exam: EOMI, Normal appearance Pupil Exam: NORMAL ACCOMODATION - ENT Exam ENT Exam: Mucous Membranes Moist, Normal Exam, Normal Oropharynx - Neck Exam Neck Exam: Normal Inspection - Respiratory Exam Respiratory Exam: Decreased Breath Sounds, Prolonged Expiratory Phase, Rhonchi - Cardiovascular Exam Cardiovascular Exam: Tachycardia, REGULAR RHYTHM, +S1, +S2 - GI/Abdominal Exam GI & Abdominal Exam: Soft (POST OP, WOUND AND ILEOSTOMY), Normal Bowel Sounds - Rectal Exam Rectal Exam: NORMAL INSPECTION - Extremities Exam Extremities Exam: Normal Capillary Refill, Normal Inspection - Neurological Exam Neurological Exam: Alert, Awake, CN II-XII Intact, Normal Gait, Oriented x3 Neuro motor strength exam: Left Upper Extremity: 5, Right Upper Extremity: 5, Left Lower Extremity: 5, Right Lower Extremity: 5 - Psychiatric Exam Psychiatric exam: Anxious - Skin Skin Exam: Intact Assessment and Plan (1) Anemia Assessment & Plan: S/P OR, 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
[2017-04-03] MEDS: (Novolin R) Insulin Human Regular 100 units/ml vial SC SCH ×4 (00:05→18:00)
[2017-04-03] MEDS: Albuterol-Ipratrop 3 mg / 0.5 (3 ml) UD INH SCH ×4 (01:04→20:10)
--- NOTE | 2017-04-03 04:10 | PN ---
SUBJECTIVE: The patient denies any shortness of breath and chest pain. He experienced mild abdominal pain. Sinus tachycardia has improved. PHYSICAL EXAMINATION: VITAL SIGNS: Blood pressure 126/76, heart rate is 101, temperature 98.2. HEENT: Pale conjunctivae. CHEST: Bilateral rhonchi. HEART: S1, S2 regular. ABDOMEN: Diminished bowel sounds. EXTREMITIES: No pedal edema. ASSESSMENT: 1. Status post low anterior resection of sigmoid cecal mass. 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 Resection margins are negative for dysplasia or carcinoma. Three benign lymph nodes. 2. Chronic obstructive lung disease. 3. Improved right-sided heart failure. 4. Anemia. RECOMMENDATIONS: Continue current bronchodilators. Continue Protonix 40 mg a.c. daily, Solu-Medrol 40 mg a.c. daily. Resume subcutaneous heparin as there is no contraindication. Mukesh Correia MD
[2017-04-03] MEDS: oxyCODONE 5 mg Immediate Release Tab PO PRN (04:37)
[2017-04-03] MEDS: HYDROmorphone 0.5 mg/0.5 ml ISec IVP PRN (06:15)
[2017-04-03 07:37] LABS: BASO % 0.2 % (0.0-2.0); EOS # 0.1 K/uL (0.0-0.7); EOS % 0.6 % (0.0-4.0); HEMATOCRIT 33.1 % (35.0-51.0); LYMPH # 1.7 K/uL (1.0-4.3); LYMPH % 10.2 % (20.0-40.0); MEAN CELL VOLUME 68.7 fL (80.0-94.0); MEAN CORPUSCULAR HEMOGLOBIN 20.3 pg (27.0-31.0); MEAN CORPUSCULAR HGB CONC 29.6 g/dL (33.0-37.0); MEAN PLATELET VOLUME 9.3 fL (7.2-11.7); MONO # 0.7 K/uL (0.0-0.8); MONO % 4.4 % (0.0-10.0); NRBC % 0.1 % (0.0-2.0); RED CELL DISTRIBUTION WIDTH 31.8 % (11.5-14.5)
[2017-04-03 07:38] LABS: CHLORIDE 95 mmol/L (98-107); POTASSIUM 4.6 mmol/L (3.6-5.2); SODIUM 137 mmol/L (132-148)
[2017-04-03 07:41] LABS: BLOOD UREA NITROGEN 5 mg/dL (9-20); CARBON DIOXIDE 33 mmol/L (22-30); GFR AFRICAN-AMERICAN > 60; GLUCOSE,RANDOM 133 mg/dL (75-110)
[2017-04-03 07:42] LABS: CALCIUM 8.7 mg/dl (8.6-10.4)
[2017-04-03 07:49] LABS: WHITE BLOOD COUNT 16.5 K/uL (4.8-10.8)
[2017-04-03] MEDS: Vitamin B Complex/Vitamin C Tab PO SCH (10:45)
[2017-04-03] MEDS: MethylPREDNISolone 40 mg Vial IVP SCH (10:45)
[2017-04-03] MEDS: guaiFENesin 600 mg ER Tab PO SCH ×2 (10:45→19:00)
--- NOTE | 2017-04-03 10:57 | RAD ---
HISTORY: r/o pneumonia COMPARISON: Single frontal chest radiograph 03/19/2017. FINDINGS: LUNGS: No acute infiltrate identified bilaterally. PLEURA: Trace of pleural effusion identified but the left costophrenic sulcus. None is seen at the right. No pneumothorax bilaterally. CARDIOVASCULAR: Normal. OSSEOUS STRUCTURES: No significant abnormalities. VISUALIZED UPPER ABDOMEN: Normal. OTHER FINDINGS: None. IMPRESSION: Trace left pleural effusion. No infiltrate bilaterally.
[2017-04-03] MEDS: HYDROmorphone 0.5 mg/0.5 ml ISec IVP SCH ×4 (13:00→22:18)
--- NOTE | 2017-04-03 13:23 | CP.PCM.PN ---
Subjective - Date & Time of Evaluation Date of Evaluation: 04/03/17 Time of Evaluation: 06:35 - Subjective Subjective: Patient was seen and examined at bedside. Pt states that he has not been feeling well since yesterday, he continues to have abdominal pain that he rates as a 5/10 without medication and states the pain has not been as controlled as in previous days. He states that he felt nauseous with the food he had yesterday but admits that "it was pork" which made him sick, denies vomiting. Pt has been using bedside IS as directed but has not ambulated in the past 3 days. Ezra drain output 30cc/24, serosanguinous drainage. Objective - Vital Signs/Intake and Output Vital Signs (last 24 hours): Temp Pulse Resp BP Pulse Ox 98.1 F 111 H 18 130/83 100 04/03/17 09:15 04/03/17 09:15 04/03/17 09:15 04/03/17 09:15 04/03/17 09:15 Intake and Output: 04/03/17 04/03/17 06:59 18:59 Intake Total 1000 Output Total 675 Balance 325 - Medications Medications: Current Medications Albuterol/Ipratropium (Duoneb 3 Mg/0.5 Mg (3 Ml) Ud) 3 ml INH RQ6 [facility] Last Admin: 04/03/17 01:04 Dose: 3 ml Docusate Sodium (Colace) 100 mg PO BID [facility] Last Admin: 04/03/17 10:45 Dose: Not Given Fluconazole (Diflucan) 100 mg PO DAILY [facility] Last Admin: 04/03/17 10:45 Dose: Not Given Guaifenesin (Mucinex La) 600 mg PO BID [facility] Last Admin: 04/03/17 10:45 Dose: Not Given Heparin Sodium (Porcine) (Heparin) 5,000 units SC BID [facility] Last Admin: 04/03/17 10:45 Dose: 5,000 units Home Med (Patient's Own Inhalation Solution) 1 ml INH RBID [facility] Last Admin: 04/02/17 07:53 Dose: 1 ml Hydromorphone HCl (Dilaudid) 0.5 mg IVP Q3 [facility] Insulin Glargine (Lantus) 16 unit SC HS [facility] Last Admin: 03/26/17 22:06 Dose: Not Given Insulin Human Regular (Novolin R) 0 unit SC Q6H [facility] PRN Reason: Protocol Last Admin: 04/03/17 12:43 Dose: Not Given Ketorolac Tromethamine (Toradol) 15 mg IVP Q6 [facility] Last Admin: 04/03/17 11:37 Dose: 15 mg Metformin HCl (Glucophage) 1,000 mg PO BID [facility] Last Admin: 04/03/17 10:45 Dose: Not Given Methylprednisolone (Solu-Medrol) 40 mg IVP DAILY [facility] Last Admin: 04/03/17 10:45 Dose: 40 mg Montelukast Sodium (Singulair) 10 mg PO HS [facility] Last Admin: 04/02/17 23:43 Dose: 10 mg Ondansetron HCl (Zofran Inj) 4 mg IVP Q4 PRN PRN Reason: Nausea/Vomiting Last Admin: 04/03/17 09:43 Dose: 4 mg Oxycodone HCl (Oxycodone Immediate Release Tab) 5 mg PO Q6 PRN PRN Reason: Pain, moderate (4-7) Last Admin: 04/03/17 04:37 Dose: 5 mg Pantoprazole Sodium (Protonix Inj) 40 mg IVP DAILY [facility] Last Admin: 04/03/17 10:45 Dose: 40 mg Polyethylene Glycol (Miralax) 17 gm PO DAILY [facility] Last Admin: 03/25/17 09:25 Dose: 17 gm Pregabalin (Lyrica) 50 mg PO BID [facility] Last Admin: 04/03/17 10:45 Dose: Not Given Roflumilast (Daliresp) 500 mcg PO DAILY [facility] Last Admin: 04/03/17 10:45 Dose: Not Given Vitamin B Complex/Vitamin C (Berocca) 1 tab PO DAILY [facility] Last Admin: 04/03/17 10:45 Dose: Not Given - Labs Labs: 04/03/17 06:39 04/03/17 06:39 PT 11.7 SECONDS (9.7-12.2) 03/27/17 07:00 INR 1.0 03/27/17 07:00 APTT 27 SECONDS (21-34) 03/27/17 07:00 - Constitutional Appears: Non-toxic, Other (Pt appears uncomfortable and in pain. ) - Head Exam Head Exam: NORMAL INSPECTION - Eye Exam Eye Exam: EOMI - ENT Exam ENT Exam: Mucous Membranes Moist - Respiratory Exam Respiratory Exam: NORMAL BREATHING PATTERN. absent: Accessory Muscle Use - Cardiovascular Exam Cardiovascular Exam: +S1, +S2 - GI/Abdominal Exam GI & Abdominal Exam: Distended, Tenderness, Normal Bowel Sounds. absent: Guarding, Rigid Additional comments: Dressings mildly saturated with purulent drainage along lower abdominal incision. 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 - Ileostomy has normal fecal output. - Extremities Exam Extremities Exam: absent: Calf Tenderness Additional comments: Right Upper Extremity swelling noted. - Neurological Exam Neurological Exam: Alert, Awake, Oriented x3 - Psychiatric Exam Psychiatric exam: Normal Affect, Normal Mood - Skin Skin Exam: Dry, Intact Assessment and Plan - Assessment and Plan (Free Text) Assessment: 66 y/o male with Tubulovillous adenoma polyps x2 s/p low anterior resection with loop ileostomy POD #7. - Ezra drain with 30 cc serosanguinous drainage - Serial abdominal exams - PT ordered - Continue Heparin BID - Strongly encourage the continued use of IS and need for ambulation. - Will continue to monitor bowel function. -c/w analgesics/anti-emetic - Further recs per Dr. Emilia Crespo PGY 2
[2017-04-03] MEDS: BROVANA 15 MCG/2 ML INH SCH ×2 (13:37→20:10)
[2017-04-03] MEDS: Sodium Chloride 0.9% 1,000 ML IV SCH (18:51)
--- NOTE | 2017-04-03 22:19 | PN ---
"SUBJECTIVE: The patient was short of breath earlier and he did vomit. PHYSICAL EXAMINATION|: VITAL SIGNS: Blood pressure 129/80, heart rate 112, temperature 97.9, respirations 20. HEENT: [place] conjunctivae. CHEST: Bilateral rhonchi. HEART: S1 and S2 regular. ABDOMEN: Diminished bowel sounds. EXTREMITIES: No edema. LABORATORY DATA: Hemoglobin and hematocrit was 9.8 and 33.1, white count and platelet count was 16.5 and 354,000. Today's BUN and creatinine of 5 and 0.6. Potassium is within normal limit at 4.6 and glucose is elevated at 133. Today's chest x-ray revealed COPD picture with prominent bronchovascular markings and prominent , no consolidation or effusion. ASSESSMENT: 1. Chronic obstructive pulmonary disease. 2. Secondary pulmonary hypertension and right heart failure. 3. Status post low anterior resection of sigmoid cecal mass, which turned to be an intramucosal carcinoma. 4. Ileus. 5. Anemia. RECOMMENDATIONS: All oral medicines are currently on hold because of the patient's vomiting. Continue IV Protonix 40 mg daily, Solu-Medrol 40 mg twice a daily, p.r.n. IV Toradol as well as p.r.n. IV Zofran. Mukesh Correia MD "
[2017-04-04] MEDS: (Novolin R) Insulin Human Regular 100 units/ml vial SC SCH ×4 (00:12→18:36)
[2017-04-04] MEDS: HYDROmorphone 0.5 mg/0.5 ml ISec IVP SCH ×3 (01:34→07:54)
[2017-04-04] MEDS: Sodium Chloride 0.9% 1,000 ML IV SCH ×2 (04:22→05:13)
[2017-04-04 07:08] LABS: BASO % 0.2 % (0.0-2.0); EOS # 0.1 K/uL (0.0-0.7); EOS % 0.7 % (0.0-4.0); LYMPH # 1.2 K/uL (1.0-4.3); LYMPH % 9.2 % (20.0-40.0); MEAN CELL VOLUME 67.4 fL (80.0-94.0); MEAN CORPUSCULAR HEMOGLOBIN 20.5 pg (27.0-31.0); MEAN CORPUSCULAR HGB CONC 30.4 g/dL (33.0-37.0); MEAN PLATELET VOLUME 8.8 fL (7.2-11.7); MONO # 0.8 K/uL (0.0-0.8); MONO % 6.2 % (0.0-10.0); PLATELET COUNT 353 K/uL (130-400); RED CELL DISTRIBUTION WIDTH 31.8 % (11.5-14.5); WHITE BLOOD COUNT 13.4 K/uL (4.8-10.8)
[2017-04-04] MEDS: Albuterol-Ipratrop 3 mg / 0.5 (3 ml) UD INH SCH ×4 (07:22→19:20)
[2017-04-04 07:25] LABS: CHLORIDE 95 mmol/L (98-107); POTASSIUM 3.7 mmol/L (3.6-5.2); SODIUM 133 mmol/L (132-148)
[2017-04-04 07:27] LABS: GFR AFRICAN-AMERICAN > 60
[2017-04-04 07:28] LABS: BLOOD UREA NITROGEN 7 mg/dL (9-20); CALCIUM 8.3 mg/dl (8.6-10.4); CARBON DIOXIDE 27 mmol/L (22-30); GLUCOSE,RANDOM 127 mg/dL (75-110)
[2017-04-04 08:30] LABS: EOSINOPHIL 1 % (0-4); NEUTROPHIL 89 % (50-75); TOTAL CELLS COUNTED 100
--- NOTE | 2017-04-04 08:48 | CP.PCM.PN ---
Subjective - Date & Time of Evaluation Date of Evaluation: 04/04/17 Time of Evaluation: 07:00 - Subjective Subjective: SURGERY PROGRESS NOTE FOR DR. MANZANO Patient seen and examined at bedside. He had some nausea yesterday and vomited a few times. He was made NPO and an Abd X-ray was ordered. He had increased pain so his pain medications were changed. Dressings were changed yesterday. Currently, he denies nausea or vomiting and states that his pain is better controlled. He hasn't vomited since yesterday around 5:30PM. He is using his IS and hasn't been OOB in the past few days. His leg pain has resolved. He passed flatus per rectum. Objective - Vital Signs/Intake and Output Vital Signs (last 24 hours): Temp Pulse Resp BP Pulse Ox 97.9 F 95 H 20 119/73 94 L 04/04/17 08:24 04/04/17 08:24 04/04/17 08:24 04/04/17 08:24 04/04/17 08:24 Intake and Output: 04/04/17 04/04/17 06:59 18:59 Intake Total 1200 Output Total 1210 Balance -10 - Medications Medications: Current Medications Albuterol/Ipratropium (Duoneb 3 Mg/0.5 Mg (3 Ml) Ud) 3 ml INH RQ6 [facility] Last Admin: 04/04/17 07:24 Dose: 3 ml Fluconazole (Diflucan) 100 mg PO DAILY [facility] Last Admin: 04/03/17 10:45 Dose: Not Given Guaifenesin (Mucinex La) 600 mg PO BID [facility] Last Admin: 04/03/17 19:00 Dose: 600 mg Heparin Sodium (Porcine) (Heparin) 5,000 units SC BID [facility] Last Admin: 04/03/17 18:52 Dose: 5,000 units Home Med (Patient's Own Inhalation Solution) 1 ml INH RBID [facility] Last Admin: 04/03/17 20:10 Dose: Not Given Hydromorphone HCl (Dilaudid) 0.5 mg IVP Q3 PRN PRN Reason: Pain, moderate (4-7) Sodium Chloride (Sodium Chloride 0.9%) 1,000 mls @ 100 mls/hr IV .Q10H [facility] Last Admin: 04/04/17 05:13 Dose: 100 mls/hr Insulin Glargine (Lantus) 16 unit SC HS [facility] Last Admin: 03/26/17 22:06 Dose: Not Given Insulin Human Regular (Novolin R) 0 unit SC Q6H [facility] PRN Reason: Protocol Last Admin: 04/04/17 06:54 Dose: Not Given Ketorolac Tromethamine (Toradol) 15 mg IVP Q6 [facility] Last Admin: 04/04/17 05:08 Dose: 15 mg Metformin HCl (Glucophage) 1,000 mg PO BID [facility] Last Admin: 04/03/17 18:00 Dose: Not Given Methylprednisolone (Solu-Medrol) 40 mg IVP DAILY [facility] Last Admin: 04/03/17 10:45 Dose: 40 mg Montelukast Sodium (Singulair) 10 mg PO [facility] Last Admin: 04/03/17 22:23 Dose: 10 mg Ondansetron HCl (Zofran Inj) 4 mg IVP Q4 PRN PRN Reason: Nausea/Vomiting Last Admin: 04/03/17 16:14 Dose: 4 mg Oxycodone HCl (Oxycodone Immediate Release Tab) 5 mg PO Q6 PRN PRN Reason: Pain, moderate (4-7) Last Admin: 04/03/17 04:37 Dose: 5 mg Pantoprazole Sodium (Protonix Inj) 40 mg IVP DAILY [facility] Last Admin: 04/03/17 10:45 Dose: 40 mg Polyethylene Glycol (Miralax) 17 gm PO DAILY [facility] Last Admin: 03/25/17 09:25 Dose: 17 gm Pregabalin (Lyrica) 50 mg PO BID [facility] Last Admin: 04/03/17 19:00 Dose: 50 mg Roflumilast (Daliresp) 500 mcg PO DAILY [facility] Last Admin: 04/03/17 10:45 Dose: Not Given Vitamin B Complex/Vitamin C (Berocca) 1 tab PO DAILY [facility] Last Admin: 04/03/17 10:45 Dose: Not Given - Labs Labs: 04/04/17 06:54 04/04/17 06:54 PT 11.7 SECONDS (9.7-12.2) 03/27/17 07:00 INR 1.0 03/27/17 07:00 APTT 27 SECONDS (21-34) 03/27/17 07:00 - Constitutional Appears: Non-toxic, No Acute Distress - Head Exam Head Exam: ATRAUMATIC, NORMAL INSPECTION - Respiratory Exam Respiratory Exam: NORMAL BREATHING PATTERN. absent: Respiratory Distress - Cardiovascular Exam Cardiovascular Exam: +S1, +S2 - GI/Abdominal Exam GI & Abdominal Exam: Soft, Tenderness (mild tenderness around incision). 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 Emilia Steven PGY-3
[2017-04-04] MEDS: MethylPREDNISolone 40 mg Vial IVP SCH (10:11)
[2017-04-04] MEDS: guaiFENesin 600 mg ER Tab PO SCH ×2 (10:12→18:27)
[2017-04-04] MEDS: Vitamin B Complex/Vitamin C Tab PO SCH (10:12)
[2017-04-04] MEDS: HYDROmorphone 0.5 mg/0.5 ml ISec IVP PRN (10:37)
--- NOTE | 2017-04-04 11:01 | RAD ---
HISTORY: nausea, abdominal pain COMPARISON: Abdomen pelvis CT examination 03/23/2017. FINDINGS: BOWEL: Gaseous distention is appreciate involving both small as well as large bowel loops relatively diffusely. Small bowel appears more affected than large bowel at this time. PE seen ABX postoperative with length the series of skin kiran anteriorly with additional sutures present in the anterior abdominal wall as well. A surgical drain seen the mid to inferior pelvis region. The overall pattern suggest likely ileus favored over intermittent or partial distal small bowel obstruction. BONES: Normal. OTHER FINDINGS: None. IMPRESSION: Consider postoperative ileus, favored over intermittent or partial distal small bowel obstruction. No gross free intrarenal gas. Continued clinical and radiographic moderate are advised.
[2017-04-04] MEDS: BROVANA 15 MCG/2 ML INH SCH ×2 (13:00→19:19)
--- NOTE | 2017-04-04 16:43 | PN ---
DATE: SUBJECTIVE: The patient shortness of breath has improved. No nausea or vomiting. He is n.p.o. except for medications. PHYSICAL EXAMINATION VITAL SIGNS: Blood pressure 119/73, heart rate 95, temperature 97.9, respirations 20. HEENT: Pale conjunctiva. CHEST: Bilateral rhonchi. HEART: S1 and S2 regular. ABDOMEN: Diminished bowel sounds. EXTREMITIES: No edema. LABORATORY DATA: Hemoglobin and hematocrit was 9.7 and 32, white count 15.4, and platelet count 353,000. SMA-7: Sodium 133, potassium 3.7, chloride 95, CO2 27, glucose 127, BUN 7, and creatinine 0.5. Abdomen x-ray done yesterday reported postoperative ileus. Chest x-ray yesterday reports trace left pleural effusion and no infiltrate bilaterally. ASSESSMENT: 1. Chronic obstructive pulmonary disease. 2. Status post low anterior resection for sigmoid cecal mass with ileostomy. 3. Cor pulmonale. 4. Hypertension. 5. Uncontrolled diabetes mellitus. RECOMMENDATIONS: Continue IV Dilaudid p.r.n. at 0.5 mg. Continue albuterol inhaler, subcutaneous heparin 5000 units twice a day, Mucinex LA 600 mg orally twice a day, Singulair 10 mg at bedtime, normal saline 100 mL an hour, Solu-Medrol 40 mg twice daily, Toradol 15 mg IV q. 6 hours. Mukesh Correia MD
--- NOTE | 2017-04-04 22:58 | CP.PCM.PN ---
Subjective - Date & Time of Evaluation Date of Evaluation: 04/03/17 - Subjective Subjective: NAUSEA, OCC VOMITN, DRAIN IN ABDOMEN, ILEOSTOMY, NO CHEST PAIN, LESS COUGH, LESS CONGESTION Objective - Vital Signs/Intake and Output Vital Signs (last 24 hours): Temp Pulse Resp BP Pulse Ox 98.0 F 102 H 20 112/54 L 97 04/04/17 16:00 04/04/17 16:00 04/04/17 16:00 04/04/17 16:00 04/04/17 16:00 Intake and Output: 04/04/17 04/05/17 18:59 06:59 Intake Total 920 1200 Output Total 140 720 Balance 780 480 - Medications Medications: Current Medications Albuterol/Ipratropium (Duoneb 3 Mg/0.5 Mg (3 Ml) Ud) 3 ml INH RQ6 [facility] Last Admin: 04/04/17 19:20 Dose: 3 ml Alprazolam (Xanax) 0.5 mg PO Q12H [facility] Last Admin: 04/04/17 22:19 Dose: 0.5 mg Fluconazole (Diflucan) 100 mg PO DAILY [facility] Last Admin: 04/04/17 10:12 Dose: 100 mg Guaifenesin (Mucinex La) 600 mg PO BID [facility] Last Admin: 04/04/17 18:27 Dose: 600 mg Heparin Sodium (Porcine) (Heparin) 5,000 units SC BID [facility] Last Admin: 04/04/17 18:27 Dose: 5,000 units Home Med (Patient's Own Inhalation Solution) 1 ml INH RBID [facility] Last Admin: 04/04/17 19:19 Dose: 1 ml Hydromorphone HCl (Dilaudid) 0.5 mg IVP Q3 PRN PRN Reason: Pain, moderate (4-7) Last Admin: 04/04/17 10:37 Dose: 0.5 mg Sodium Chloride (Sodium Chloride 0.9%) 1,000 mls @ 100 mls/hr IV .Q10H [facility] Last Admin: 04/04/17 05:13 Dose: 100 mls/hr Insulin Glargine (Lantus) 16 unit SC HS [facility] Last Admin: 03/26/17 22:06 Dose: Not Given Insulin Human Regular (Novolin R) 0 unit SC Q6H [facility] PRN Reason: Protocol Last Admin: 04/04/17 18:36 Dose: 1 unit Ketorolac Tromethamine (Toradol) 15 mg IVP Q6 [facility] Last Admin: 04/04/17 18:27 Dose: 15 mg Metformin HCl (Glucophage) 1,000 mg PO BID [facility] Last Admin: 04/04/17 18:26 Dose: 1,000 mg Methylprednisolone (Solu-Medrol) 40 mg IVP DAILY [facility] Last Admin: 04/04/17 10:11 Dose: 40 mg Montelukast Sodium (Singulair) 10 mg PO HS [facility] Last Admin: 04/04/17 22:19 Dose: 10 mg Ondansetron HCl (Zofran Inj) 4 mg IVP Q4 PRN PRN Reason: Nausea/Vomiting Last Admin: 04/03/17 16:14 Dose: 4 mg Oxycodone HCl (Oxycodone Immediate Release Tab) 5 mg PO Q6 PRN PRN Reason: Pain, moderate (4-7) Last Admin: 04/03/17 04:37 Dose: 5 mg Pantoprazole Sodium (Protonix Inj) 40 mg IVP DAILY [facility] Last Admin: 04/04/17 10:11 Dose: 40 mg Polyethylene Glycol (Miralax) 17 gm PO DAILY [facility] Last Admin: 03/25/17 09:25 Dose: 17 gm Pregabalin (Lyrica) 50 mg PO BID [facility] Last Admin: 04/04/17 18:27 Dose: 50 mg Roflumilast (Daliresp) 500 mcg PO DAILY [facility] Last Admin: 04/04/17 10:12 Dose: 500 mcg Vitamin B Complex/Vitamin C (Berocca) 1 tab PO DAILY [facility] Last Admin: 04/04/17 10:12 Dose: 1 tab - Labs Labs: 04/04/17 06:54 04/04/17 06:54 PT 11.7 SECONDS (9.7-12.2) 03/27/17 07:00 INR 1.0 03/27/17 07:00 APTT 27 SECONDS (21-34) 03/27/17 07:00 - Constitutional Appears: Non-toxic, No Acute Distress, Chronically Ill - Head Exam Head Exam: ATRAUMATIC, NORMAL INSPECTION, NORMOCEPHALIC - Eye Exam Eye Exam: EOMI, Normal appearance, PERRL Pupil Exam: NORMAL ACCOMODATION - ENT Exam ENT Exam: Mucous Membranes Moist, Normal Exam, Normal Oropharynx, TM's Normal Bilaterally - Neck Exam Neck Exam: Normal Inspection - Respiratory Exam Respiratory Exam: Rhonchi, NORMAL BREATHING PATTERN - Cardiovascular Exam Cardiovascular Exam: REGULAR RHYTHM, +S1, +S2 - GI/Abdominal Exam GI & Abdominal Exam: Distended, Hyperactive Bowel Sounds - Rectal Exam Rectal Exam: NORMAL INSPECTION - Extremities Exam Extremities Exam: Normal Capillary Refill, Normal Inspection - Neurological Exam Neurological Exam: Alert, Awake, CN II-XII Intact, Normal Gait, Oriented x3 Neuro motor strength exam: Left Upper Extremity: 5, Right Upper Extremity: 5, Left Lower Extremity: 5, Right Lower Extremity: 5 - Psychiatric Exam Psychiatric exam: Flat Affect - Skin Skin Exam: Intact Assessment and Plan (1) Anemia Assessment & Plan: S/P OR, ILEOSTOMY Status: Chronic (2) COPD (chronic obstructive pulmonary disease) with emphysema Status: Acute (3) Allergic rhinitis Status: Chronic (4) Diabetes Status: Chronic
--- NOTE | 2017-04-04 22:59 | CP.PCM.PN ---
Subjective - Date & Time of Evaluation Date of Evaluation: 04/04/17 - Subjective Subjective: ON LIQUID DIET, NO FEVER, NO SOB, COUGH, LESS CONGESTED Objective - Vital Signs/Intake and Output Vital Signs (last 24 hours): Temp Pulse Resp BP Pulse Ox 98.0 F 102 H 20 112/54 L 97 04/04/17 16:00 04/04/17 16:00 04/04/17 16:00 04/04/17 16:00 04/04/17 16:00 Intake and Output: 04/04/17 04/05/17 18:59 06:59 Intake Total 920 1200 Output Total 140 720 Balance 780 480 - Medications Medications: Current Medications Albuterol/Ipratropium (Duoneb 3 Mg/0.5 Mg (3 Ml) Ud) 3 ml INH RQ6 [facility] Last Admin: 04/04/17 19:20 Dose: 3 ml Alprazolam (Xanax) 0.5 mg PO Q12H [facility] Last Admin: 04/04/17 22:19 Dose: 0.5 mg Fluconazole (Diflucan) 100 mg PO DAILY [facility] Last Admin: 04/04/17 10:12 Dose: 100 mg Guaifenesin (Mucinex La) 600 mg PO BID [facility] Last Admin: 04/04/17 18:27 Dose: 600 mg Heparin Sodium (Porcine) (Heparin) 5,000 units SC BID [facility] Last Admin: 04/04/17 18:27 Dose: 5,000 units Home Med (Patient's Own Inhalation Solution) 1 ml INH RBID [facility] Last Admin: 04/04/17 19:19 Dose: 1 ml Hydromorphone HCl (Dilaudid) 0.5 mg IVP Q3 PRN PRN Reason: Pain, moderate (4-7) Last Admin: 04/04/17 10:37 Dose: 0.5 mg Sodium Chloride (Sodium Chloride 0.9%) 1,000 mls @ 100 mls/hr IV .Q10H [facility] Last Admin: 04/04/17 05:13 Dose: 100 mls/hr Insulin Glargine (Lantus) 16 unit SC HS [facility] Last Admin: 03/26/17 22:06 Dose: Not Given Insulin Human Regular (Novolin R) 0 unit SC Q6H [facility] PRN Reason: Protocol Last Admin: 04/04/17 18:36 Dose: 1 unit Ketorolac Tromethamine (Toradol) 15 mg IVP Q6 [facility] Last Admin: 04/04/17 18:27 Dose: 15 mg Metformin HCl (Glucophage) 1,000 mg PO BID [facility] Last Admin: 04/04/17 18:26 Dose: 1,000 mg Methylprednisolone (Solu-Medrol) 40 mg IVP DAILY [facility] Last Admin: 04/04/17 10:11 Dose: 40 mg Montelukast Sodium (Singulair) 10 mg PO HS [facility] Last Admin: 04/04/17 22:19 Dose: 10 mg Ondansetron HCl (Zofran Inj) 4 mg IVP Q4 PRN PRN Reason: Nausea/Vomiting Last Admin: 04/03/17 16:14 Dose: 4 mg Oxycodone HCl (Oxycodone Immediate Release Tab) 5 mg PO Q6 PRN PRN Reason: Pain, moderate (4-7) Last Admin: 04/03/17 04:37 Dose: 5 mg Pantoprazole Sodium (Protonix Inj) 40 mg IVP DAILY [facility] Last Admin: 04/04/17 10:11 Dose: 40 mg Polyethylene Glycol (Miralax) 17 gm PO DAILY [facility] Last Admin: 03/25/17 09:25 Dose: 17 gm Pregabalin (Lyrica) 50 mg PO BID [facility] Last Admin: 04/04/17 18:27 Dose: 50 mg Roflumilast (Daliresp) 500 mcg PO DAILY [facility] Last Admin: 04/04/17 10:12 Dose: 500 mcg Vitamin B Complex/Vitamin C (Berocca) 1 tab PO DAILY [facility] Last Admin: 04/04/17 10:12 Dose: 1 tab - Labs Labs: 04/04/17 06:54 04/04/17 06:54 PT 11.7 SECONDS (9.7-12.2) 03/27/17 07:00 INR 1.0 03/27/17 07:00 APTT 27 SECONDS (21-34) 03/27/17 07:00 - Constitutional Appears: Non-toxic, No Acute Distress, Chronically Ill - Head Exam Head Exam: ATRAUMATIC, NORMAL INSPECTION, NORMOCEPHALIC - Eye Exam Eye Exam: EOMI, Normal appearance, PERRL Pupil Exam: NORMAL ACCOMODATION - ENT Exam ENT Exam: Mucous Membranes Moist, Normal Exam, Normal Oropharynx, TM's Normal Bilaterally - Neck Exam Neck Exam: Normal Inspection - Respiratory Exam Respiratory Exam: Decreased Breath Sounds, Rhonchi, NORMAL BREATHING PATTERN - Cardiovascular Exam Cardiovascular Exam: Tachycardia, REGULAR RHYTHM, +S1, +S2 - GI/Abdominal Exam GI & Abdominal Exam: Normal Bowel Sounds (ILEOSTOMY, POST OP) - Extremities Exam Extremities Exam: Normal Capillary Refill, Pedal Edema - Neurological Exam Neurological Exam: Alert, Awake, CN II-XII Intact, Normal Gait, Oriented x3 Assessment and Plan (1) Anemia Status: Chronic (2) COPD (chronic obstructive pulmonary disease) with emphysema Status: Acute (3) Allergic rhinitis Status: Chronic (4) Diabetes Status: Chronic
[2017-04-05] MEDS: (Novolin R) Insulin Human Regular 100 units/ml vial SC SCH ×4 (00:33→18:15)
[2017-04-05] MEDS: Albuterol-Ipratrop 3 mg / 0.5 (3 ml) UD INH SCH ×3 (01:11→19:28)
[2017-04-05] MEDS: HYDROmorphone 0.5 mg/0.5 ml ISec IVP PRN ×2 (01:24→04:35)
[2017-04-05] MEDS: Sodium Chloride 0.9% 1,000 ML IV SCH ×4 (01:25→19:45)
[2017-04-05] MEDS: BROVANA 15 MCG/2 ML INH SCH ×2 (07:23→19:32)
[2017-04-05] MEDS: Vitamin B Complex/Vitamin C Tab PO SCH (10:09)
[2017-04-05] MEDS: guaiFENesin 600 mg ER Tab PO SCH ×2 (10:10→18:12)
[2017-04-05] MEDS: MethylPREDNISolone 40 mg Vial IVP SCH (10:10)
[2017-04-05] MEDS: oxyCODONE 5 mg Immediate Release Tab PO PRN (10:17)
--- NOTE | 2017-04-05 12:51 | CP.PCM.PN ---
Subjective - Date & Time of Evaluation Date of Evaluation: 04/05/17 Time of Evaluation: 09:00 - Subjective Subjective: SURGERY PROGRESS NOTE FOR DR. MANZANO Patient seen and examined at bedside. He is tolerating CLD and denies nausea or vomiting. He reports small amount of abdominal pain but reports that it is better than before. He stood up 2x with PT but was not able to walk. He is using his IS. Objective - Vital Signs/Intake and Output Vital Signs (last 24 hours): Temp Pulse Resp BP Pulse Ox 97.6 F 94 H 20 108/63 98 04/05/17 08:23 04/05/17 08:23 04/05/17 08:23 04/05/17 08:23 04/05/17 08:23 Intake and Output: 04/05/17 04/05/17 06:59 18:59 Intake Total 1200 Output Total 1150 Balance 50 - Medications Medications: Current Medications Albuterol/Ipratropium (Duoneb 3 Mg/0.5 Mg (3 Ml) Ud) 3 ml INH RQ6 [facility] Last Admin: 04/05/17 07:23 Dose: 3 ml Alprazolam (Xanax) 0.5 mg PO Q12H [facility] Last Admin: 04/05/17 12:41 Dose: 0.5 mg Fluconazole (Diflucan) 100 mg PO DAILY [facility] Last Admin: 04/05/17 10:09 Dose: 100 mg Guaifenesin (Mucinex La) 600 mg PO BID [facility] Last Admin: 04/05/17 10:10 Dose: 600 mg Heparin Sodium (Porcine) (Heparin) 5,000 units SC Q8 [facility] Home Med (Patient's Own Inhalation Solution) 1 ml INH RBID [facility] Last Admin: 04/05/17 07:23 Dose: 1 ml Hydromorphone HCl (Dilaudid) 0.5 mg IVP Q3 PRN PRN Reason: Pain, moderate (4-7) Last Admin: 04/05/17 04:35 Dose: 0.5 mg Sodium Chloride (Sodium Chloride 0.9%) 1,000 mls @ 100 mls/hr IV .Q10H [facility] Last Admin: 04/05/17 01:26 Dose: Not Given Insulin Glargine (Lantus) 16 unit SC HS [facility] Last Admin: 03/26/17 22:06 Dose: Not Given Insulin Human Regular (Novolin R) 0 unit SC Q6H [facility] PRN Reason: Protocol Last Admin: 04/05/17 12:38 Dose: 1 unit Ketorolac Tromethamine (Toradol) 15 mg IVP Q6 [facility] Last Admin: 04/05/17 07:28 Dose: 15 mg Metformin HCl (Glucophage) 1,000 mg PO BID [facility] Last Admin: 04/05/17 10:09 Dose: 1,000 mg Methylprednisolone (Solu-Medrol) 40 mg IVP DAILY [facility] Last Admin: 04/05/17 10:10 Dose: 40 mg Montelukast Sodium (Singulair) 10 mg PO HS [facility] Last Admin: 04/04/17 22:19 Dose: 10 mg Ondansetron HCl (Zofran Inj) 4 mg IVP Q4 PRN PRN Reason: Nausea/Vomiting Last Admin: 04/03/17 16:14 Dose: 4 mg Oxycodone HCl (Oxycodone Immediate Release Tab) 5 mg PO Q6 PRN PRN Reason: Pain, moderate (4-7) Last Admin: 04/05/17 10:17 Dose: 5 mg Pantoprazole Sodium (Protonix Inj) 40 mg IVP DAILY [facility] Last Admin: 04/05/17 10:10 Dose: 40 mg Polyethylene Glycol (Miralax) 17 gm PO DAILY [facility] Last Admin: 03/25/17 09:25 Dose: 17 gm Pregabalin (Lyrica) 50 mg PO BID [facility] Last Admin: 04/05/17 10:10 Dose: 50 mg Roflumilast (Daliresp) 500 mcg PO DAILY [facility] Last Admin: 04/05/17 10:09 Dose: 500 mcg Vitamin B Complex/Vitamin C (Berocca) 1 tab PO DAILY [facility] Last Admin: 04/05/17 10:09 Dose: 1 tab - Labs Labs: 04/04/17 06:54 04/04/17 06:54 PT 11.7 SECONDS (9.7-12.2) 03/27/17 07:00 INR 1.0 03/27/17 07:00 APTT 27 SECONDS (21-34) 03/27/17 07:00 - Constitutional Appears: Non-toxic, No Acute Distress - Head Exam Head Exam: ATRAUMATIC, NORMAL INSPECTION - Eye Exam Eye Exam: EOMI, Normal appearance - Respiratory Exam Respiratory Exam: NORMAL BREATHING PATTERN. 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 Discontinued Dilaudid and added Morphine for breakthrough pain. Pt also on Toradol and Oxycodone - Strongly encouraged IS and ambulation - US + for right posterior tibial and peroneal vein DVT - Therapeutic Lovenox 70mg Q12 ordered - Discussed plan with Dr. Emilia Steven PGY-3
--- NOTE | 2017-04-05 21:15 | CP.PCM.PN ---
Subjective - Date & Time of Evaluation Date of Evaluation: 04/05/17 - Subjective Subjective: LESS SOB , COUGH, LESS WHEEZING , NO ABDOMINAL PAIN, DRAIN IS STILL THERE, NO FEVER, NO CHEST PAIN Objective - Vital Signs/Intake and Output Vital Signs (last 24 hours): Temp Pulse Resp BP Pulse Ox 98.0 F 99 H 20 116/75 97 04/05/17 16:00 04/05/17 16:00 04/05/17 16:00 04/05/17 16:00 04/05/17 16:00 Intake and Output: 04/05/17 04/06/17 18:59 06:59 Intake Total 920 Output Total 55 Balance 865 - Medications Medications: Current Medications Albuterol/Ipratropium (Duoneb 3 Mg/0.5 Mg (3 Ml) Ud) 3 ml INH RQ6 [facility] Last Admin: 04/05/17 19:28 Dose: 3 ml Alprazolam (Xanax) 0.5 mg PO Q12H [facility] Last Admin: 04/05/17 12:41 Dose: 0.5 mg Enoxaparin Sodium (Lovenox) 70 mg SC Q12 [facility] Fluconazole (Diflucan) 100 mg PO DAILY [facility] Last Admin: 04/05/17 10:09 Dose: 100 mg Guaifenesin (Mucinex La) 600 mg PO BID [facility] Last Admin: 04/05/17 18:12 Dose: 600 mg Home Med (Patient's Own Inhalation Solution) 1 ml INH RBID [facility] Last Admin: 04/05/17 19:32 Dose: 1 ml Sodium Chloride (Sodium Chloride 0.9%) 1,000 mls @ 100 mls/hr IV .Q10H [facility] Last Admin: 04/05/17 10:15 Dose: 100 mls/hr Insulin Glargine (Lantus) 16 unit SC HS [facility] Last Admin: 03/26/17 22:06 Dose: Not Given Insulin Human Regular (Novolin R) 0 unit SC Q6H [facility] PRN Reason: Protocol Last Admin: 04/05/17 18:15 Dose: 2 unit Ketorolac Tromethamine (Toradol) 15 mg IVP Q6 [facility] Last Admin: 04/05/17 18:12 Dose: 15 mg Metformin HCl (Glucophage) 1,000 mg PO BID [facility] Last Admin: 04/05/17 18:11 Dose: 1,000 mg Methylprednisolone (Solu-Medrol) 40 mg IVP DAILY [facility] Last Admin: 04/05/17 10:10 Dose: 40 mg Montelukast Sodium (Singulair) 10 mg PO HS [facility] Last Admin: 04/04/17 22:19 Dose: 10 mg Morphine Sulfate (Morphine) 2 mg IVP Q4H PRN PRN Reason: Pain, severe (8-10) Ondansetron HCl (Zofran Inj) 4 mg IVP Q4 PRN PRN Reason: Nausea/Vomiting Last Admin: 04/03/17 16:14 Dose: 4 mg Oxycodone HCl (Oxycodone Immediate Release Tab) 5 mg PO Q6 PRN PRN Reason: Pain, moderate (4-7) Last Admin: 04/05/17 10:17 Dose: 5 mg Pantoprazole Sodium (Protonix Inj) 40 mg IVP DAILY [facility] Last Admin: 04/05/17 10:10 Dose: 40 mg Polyethylene Glycol (Miralax) 17 gm PO DAILY [facility] Last Admin: 03/25/17 09:25 Dose: 17 gm Pregabalin (Lyrica) 50 mg PO BID [facility] Last Admin: 04/05/17 18:12 Dose: 50 mg Roflumilast (Daliresp) 500 mcg PO DAILY [facility] Last Admin: 04/05/17 10:09 Dose: 500 mcg Vitamin B Complex/Vitamin C (Berocca) 1 tab PO DAILY [facility] Last Admin: 04/05/17 10:09 Dose: 1 tab - Labs Labs: 04/04/17 06:54 04/04/17 06:54 PT 11.7 SECONDS (9.7-12.2) 03/27/17 07:00 INR 1.0 03/27/17 07:00 APTT 27 SECONDS (21-34) 03/27/17 07:00 - Constitutional Appears: Non-toxic, No Acute Distress, Chronically Ill - Head Exam Head Exam: ATRAUMATIC, NORMAL INSPECTION, NORMOCEPHALIC - Eye Exam Eye Exam: EOMI, Normal appearance, PERRL Pupil Exam: NORMAL ACCOMODATION - ENT Exam ENT Exam: Mucous Membranes Moist, Normal Exam, Normal Oropharynx, TM's Normal Bilaterally - Neck Exam Neck Exam: Normal Inspection - Respiratory Exam Respiratory Exam: Decreased Breath Sounds, Rhonchi - Cardiovascular Exam Cardiovascular Exam: REGULAR RHYTHM, +S1, +S2 - GI/Abdominal Exam GI & Abdominal Exam: Soft, Normal Bowel Sounds - Extremities Exam Extremities Exam: Normal Capillary Refill, Pedal Edema - Neurological Exam Neurological Exam: Alert, Awake, CN II-XII Intact, Normal Gait, Oriented x3 Assessment and Plan (1) Anemia Status: Chronic (2) COPD (chronic obstructive pulmonary disease) with emphysema Status: Acute (3) Allergic rhinitis Status: Chronic (4) Diabetes Status: Chronic
[2017-04-05] MEDS: Enoxaparin 80 mg Syringe SC SCH (22:12)
--- NOTE | 2017-04-05 22:27 | PN ---
SUBJECTIVE: The patient is experiencing right leg pain. I was informed that the preliminary report of ultrasound is positive for DVT. The patient has no vomiting. He is tolerating a clear liquid diet. PHYSICAL EXAMINATION: VITAL SIGNS: Blood pressure 116/75, heart rate 99, temperature 98, respirations 20. HEENT: Pale conjunctivae. CHEST: Bilateral rhonchi. HEART: S1, S2, regular. EXTREMITIES: Right calf tenderness. ASSESSMENT: 1. Deep vein thrombosis. 2. Chronic obstructive pulmonary disease. 3. Uncontrolled diabetes mellitus. 4. Anemia. 5. 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 6. Ileus. RECOMMENDATIONS: Continue current bronchodilators. Subcutaneous Lovenox will be increased to therapeutic regimen at 70 mg twice a day instead of subcutaneous heparin. Continue Solu-Medrol 40 mg intravenous once a day. The patient will undergo IVC filter placement. Mukesh Correia MD
[2017-04-06] MEDS: Sodium Chloride 0.9% 1,000 ML IV SCH ×3 (00:31→21:39)
[2017-04-06] MEDS: (Novolin R) Insulin Human Regular 100 units/ml vial SC SCH ×5 (00:32→23:54)
[2017-04-06] MEDS: Albuterol-Ipratrop 3 mg / 0.5 (3 ml) UD INH SCH ×4 (01:47→20:27)
[2017-04-06 06:48] LABS: CHLORIDE 100 mmol/L (98-107); POTASSIUM 3.8 mmol/L (3.6-5.2); SODIUM 136 mmol/L (132-148)
[2017-04-06 06:51] LABS: BLOOD UREA NITROGEN 7 mg/dL (9-20); CARBON DIOXIDE 26 mmol/L (22-30); GFR AFRICAN-AMERICAN > 60
[2017-04-06 06:52] LABS: CALCIUM 8.3 mg/dl (8.6-10.4); GLUCOSE,RANDOM 88 mg/dL (75-110)
[2017-04-06 06:53] LABS: BASO % 0.3 % (0.0-2.0); EOS # 0.1 K/uL (0.0-0.7); EOS % 0.9 % (0.0-4.0); HEMATOCRIT 30.3 % (35.0-51.0); LYMPH # 1.2 K/uL (1.0-4.3); LYMPH % 10.8 % (20.0-40.0); MEAN CELL VOLUME 67.4 fL (80.0-94.0); MEAN CORPUSCULAR HEMOGLOBIN 20.7 pg (27.0-31.0); MEAN CORPUSCULAR HGB CONC 30.7 g/dL (33.0-37.0); MEAN PLATELET VOLUME 8.8 fL (7.2-11.7); MONO # 0.8 K/uL (0.0-0.8); MONO % 6.7 % (0.0-10.0); RED CELL DISTRIBUTION WIDTH 32.1 % (11.5-14.5); WHITE BLOOD COUNT 11.3 K/uL (4.8-10.8)
--- NOTE | 2017-04-06 07:14 | CP.PCM.CON ---
History of Present Illness - History of Present Illness History of Present Illness: PATIENT SEEN. FULL CONSULT WILL BE DECTETED Dx: CARCINOMA IN SITU ( RECTOSIGMOID)IN BACKGROUND OF LARGE TUBULOVILLOUS ADENOMA. S/P CURATIVE RESECTION PER DR MANZANO. NODES ARE NEGATIVE. IRON DEFICIENCY ANEMIA 2* TO BLOOD LOSS. SUGGEST IRON SUPPLEMENTS. DISCUSSED WITH ALL INVOLVED. Past Patient History - Infectious Disease Hx of Infectious Diseases: None - Past Medical History & Family History Past Medical History?: Yes - Past Social History Smoking Status: Former Smoker - CARDIAC Hx Congestive Heart Failure: Yes Hx Hypercholesterolemia: Yes Hx Hypertension: Yes - PULMONARY Hx Chronic Obstructive Pulmonary Disease (COPD): Yes - NEUROLOGICAL Hx Neurological Disorder: No - HEENT Hx HEENT Problems: Yes Hx Cataracts: Yes (left cataract removed, r cataract) Other/Comment: wears eyeglasses for distance - RENAL Hx Chronic Kidney Disease: Yes - ENDOCRINE/METABOLIC Hx Diabetes Mellitus Type 2: Yes - HEMATOLOGICAL/ONCOLOGICAL Hx Blood Disorders: No - INTEGUMENTARY Hx Dermatological Problems: No - MUSCULOSKELETAL/RHEUMATOLOGICAL Hx Arthritis: Yes (BACK; KNEES) - GASTROINTESTINAL Hx Gastritis: No - PSYCHIATRIC Hx Anxiety: Yes Hx Substance Use: No - SURGICAL HISTORY Hx Surgeries: Yes Hx Cardiac Catheterization: Yes (11/2015) - ANESTHESIA Hx Anesthesia: Yes Hx Anesthesia Reactions: Yes (pt dont know. aware) Hx Malignant Hyperthermia: No Meds Allergies/Adverse Reactions: Allergies Allergy/AdvReac Type Severity Reaction Status Date / Time acetaminophen [From Tylenol] Allergy RASH Verified 03/02/17 22:26 FISH Allergy SWELLING Verified 03/02/17 22:26 shrimp Allergy SHORTNESS Verified 03/02/17 22:26 OF BREATH IV dye Allergy ANAPHYLAXIS Uncoded 03/23/17 14:45 - Medications Medications: Current Medications Albuterol/Ipratropium (Duoneb 3 Mg/0.5 Mg (3 Ml) Ud) 3 ml INH RQ6 [facility] Last Admin: 04/06/17 01:47 Dose: 3 ml Alprazolam (Xanax) 0.5 mg PO Q12H [facility] Last Admin: 04/05/17 23:41 Dose: 0.5 mg Enoxaparin Sodium (Lovenox) 70 mg SC Q12 [facility] Last Admin: 04/05/17 22:12 Dose: 70 mg Fluconazole (Diflucan) 100 mg PO DAILY [facility] Last Admin: 04/05/17 10:09 Dose: 100 mg Guaifenesin (Mucinex La) 600 mg PO BID [facility] Last Admin: 04/05/17 18:12 Dose: 600 mg Home Med (Patient's Own Inhalation Solution) 1 ml INH RBID [facility] Last Admin: 04/05/17 19:32 Dose: 1 ml Sodium Chloride (Sodium Chloride 0.9%) 1,000 mls @ 100 mls/hr IV .Q10H [facility] Last Admin: 04/06/17 05:58 Dose: Not Given Insulin Glargine (Lantus) 16 unit SC [facility] Last Admin: 03/26/17 22:06 Dose: Not Given Insulin Human Regular (Novolin R) 0 unit SC Q6H [facility] PRN Reason: Protocol Last Admin: 04/06/17 00:32 Dose: Not Given Ketorolac Tromethamine (Toradol) 15 mg IVP Q6 [facility] Last Admin: 04/06/17 05:20 Dose: 15 mg Metformin HCl (Glucophage) 1,000 mg PO BID [facility] Last Admin: 04/05/17 18:11 Dose: 1,000 mg Methylprednisolone (Solu-Medrol) 40 mg IVP DAILY [facility] Last Admin: 04/05/17 10:10 Dose: 40 mg Montelukast Sodium (Singulair) 10 mg PO [facility] Last Admin: 04/05/17 22:07 Dose: 10 mg Morphine Sulfate (Morphine) 2 mg IVP Q4H PRN PRN Reason: Pain, severe (8-10) Last Admin: 04/06/17 05:27 Dose: 2 mg Ondansetron HCl (Zofran Inj) 4 mg IVP Q4 PRN PRN Reason: Nausea/Vomiting Last Admin: 04/03/17 16:14 Dose: 4 mg Oxycodone HCl (Oxycodone Immediate Release Tab) 5 mg PO Q6 PRN PRN Reason: Pain, moderate (4-7) Last Admin: 04/05/17 10:17 Dose: 5 mg Pantoprazole Sodium (Protonix Inj) 40 mg IVP DAILY [facility] Last Admin: 04/05/17 10:10 Dose: 40 mg Polyethylene Glycol (Miralax) 17 gm PO DAILY [facility] Last Admin: 03/25/17 09:25 Dose: 17 gm Pregabalin (Lyrica) 50 mg PO BID [facility] Last Admin: 04/05/17 18:12 Dose: 50 mg Roflumilast (Daliresp) 500 mcg PO DAILY [facility] Last Admin: 04/05/17 10:09 Dose: 500 mcg Vitamin B Complex/Vitamin C (Berocca) 1 tab PO DAILY [facility] Last Admin: 04/05/17 10:09 Dose: 1 tab Results - Vital Signs Recent Vital Signs: Last Vital Signs Temp 97.6 F 04/06/17 04:00 Pulse 88 04/06/17 04:00 Resp 20 04/06/17 04:00 BP 137/85 04/06/17 04:00 Pulse Ox 100 04/06/17 04:00 - Labs Result Diagrams: 04/06/17 06:16 04/06/17 06:16 Labs: Laboratory Results - last 24 hr 04/05/17 04/05/17 04/06/17 11:52 17:20 06:16 WBC 11.3 H RBC 4.49 Hgb 9.3 L Hct 30.3 L MCV 67.4 L MCH 20.7 L MCHC 30.7 L RDW 32.1 H Plt Count 416 H MPV 8.8 Neut % (Auto) 81.3 H Lymph % (Auto) 10.8 L [place] % (Auto) 6.7 Eos % (Auto) 0.9 Baso % (Auto) 0.3 Neut # 9.2 H Lymph # 1.2 [place] # 0.8 Eos # 0.1 Baso # 0.0 Sodium Potassium Chloride Carbon Dioxide Anion Gap BUN Creatinine Est GFR ( Amer) Est GFR (Non-Af Amer) POC Glucose (mg/dL) 170 H 233 H Random Glucose Calcium 04/06/17 04/06/17 06:16 06:20 WBC RBC Hgb Hct MCV MCH MCHC RDW Plt Count MPV Neut % (Auto) Lymph % (Auto) [place] % (Auto) Eos % (Auto) Baso % (Auto) Neut # Lymph # [place] # Eos # Baso # Sodium 136 Potassium 3.8 Chloride 100 Carbon Dioxide 26 Anion Gap 14 BUN 7 L Creatinine 0.5 L Est GFR ( Amer) > 60 Est GFR (Non-Af Amer) > 60 POC Glucose (mg/dL) 93 Random Glucose 88 Calcium 8.3 L
[2017-04-06] MEDS: BROVANA 15 MCG/2 ML INH SCH ×2 (07:24→20:27)
--- NOTE | 2017-04-06 08:43 | CP.PCM.PN ---
Subjective - Date & Time of Evaluation Date of Evaluation: 04/06/17 Time of Evaluation: 07:00 - Subjective Subjective: SURGERY PROGRESS NOTE FOR DR. MANZANO Patient seen and examined at bedside. He denies nausea or vomiting but had some pain after the full liquid diet. He was not OOB yesterday at all. He has stool output into the ostomy bag. BIPAP in place. Dressing changed this AM. Objective - Vital Signs/Intake and Output Vital Signs (last 24 hours): Temp Pulse Resp BP Pulse Ox 97.9 F 95 H 18 119/76 96 04/06/17 08:03 04/06/17 08:03 04/06/17 08:03 04/06/17 08:03 04/06/17 08:03 Intake and Output: 04/06/17 04/06/17 06:59 18:59 Intake Total 1160 Output Total 1010 Balance 150 - Medications Medications: Current Medications Albuterol/Ipratropium (Duoneb 3 Mg/0.5 Mg (3 Ml) Ud) 3 ml INH RQ6 [facility] Last Admin: 04/06/17 07:24 Dose: 3 ml Alprazolam (Xanax) 0.5 mg PO Q12H [facility] Last Admin: 04/05/17 23:41 Dose: 0.5 mg Enoxaparin Sodium (Lovenox) 70 mg SC Q12 [facility] Last Admin: 04/05/17 22:12 Dose: 70 mg Fluconazole (Diflucan) 100 mg PO DAILY [facility] Last Admin: 04/05/17 10:09 Dose: 100 mg Guaifenesin (Mucinex La) 600 mg PO BID [facility] Last Admin: 04/05/17 18:12 Dose: 600 mg Home Med (Patient's Own Inhalation Solution) 1 ml INH RBID [facility] Last Admin: 04/06/17 07:24 Dose: 1 ml Sodium Chloride (Sodium Chloride 0.9%) 1,000 mls @ 100 mls/hr IV .Q10H [facility] Last Admin: 04/06/17 05:58 Dose: Not Given Insulin Glargine (Lantus) 16 unit SC HS [facility] Last Admin: 03/26/17 22:06 Dose: Not Given Insulin Human Regular (Novolin R) 0 unit SC Q6H [facility] PRN Reason: Protocol Last Admin: 04/06/17 07:35 Dose: Not Given Ketorolac Tromethamine (Toradol) 15 mg IVP Q6 [facility] Last Admin: 04/06/17 05:20 Dose: 15 mg Metformin HCl (Glucophage) 1,000 mg PO BID [facility] Last Admin: 04/05/17 18:11 Dose: 1,000 mg Methylprednisolone (Solu-Medrol) 40 mg IVP DAILY [facility] Last Admin: 04/05/17 10:10 Dose: 40 mg Montelukast Sodium (Singulair) 10 mg PO [facility] Last Admin: 04/05/17 22:07 Dose: 10 mg Morphine Sulfate (Morphine) 2 mg IVP Q4H PRN PRN Reason: Pain, severe (8-10) Last Admin: 04/06/17 05:27 Dose: 2 mg Ondansetron HCl (Zofran Inj) 4 mg IVP Q4 PRN PRN Reason: Nausea/Vomiting Last Admin: 04/03/17 16:14 Dose: 4 mg Oxycodone HCl (Oxycodone Immediate Release Tab) 5 mg PO Q6 PRN PRN Reason: Pain, moderate (4-7) Last Admin: 04/05/17 10:17 Dose: 5 mg Pantoprazole Sodium (Protonix Inj) 40 mg IVP DAILY [facility] Last Admin: 04/05/17 10:10 Dose: 40 mg Polyethylene Glycol (Miralax) 17 gm PO DAILY [facility] Last Admin: 03/25/17 09:25 Dose: 17 gm Pregabalin (Lyrica) 50 mg PO BID [facility] Last Admin: 04/05/17 18:12 Dose: 50 mg Roflumilast (Daliresp) 500 mcg PO DAILY [facility] Last Admin: 04/05/17 10:09 Dose: 500 mcg Vitamin B Complex/Vitamin C (Berocca) 1 tab PO DAILY [facility] Last Admin: 04/05/17 10:09 Dose: 1 tab - Labs Labs: 04/06/17 06:16 04/06/17 06:16 PT 11.7 SECONDS (9.7-12.2) 03/27/17 07:00 INR 1.0 03/27/17 07:00 APTT 27 SECONDS (21-34) 03/27/17 07:00 - Constitutional Appears: Non-toxic, No Acute Distress - Head Exam Head Exam: ATRAUMATIC, NORMAL INSPECTION - Eye Exam Eye Exam: EOMI, Normal appearance - Respiratory Exam Respiratory Exam: NORMAL BREATHING PATTERN (on BIPAP). absent: Respiratory Distress - Cardiovascular Exam Cardiovascular Exam: +S1, +S2 - GI/Abdominal Exam GI & Abdominal Exam: Distended, Soft, Tenderness (mild tenderness around incision site). 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 Morphine for breakthrough pain. Pt also on Toradol and Oxycodone - US + for right posterior tibial and peroneal vein DVT - Therapeutic Lovenox 70mg Q12 - No need for IVC Filter per Dr. Manzano - Heme onc consulted, recommend iron supplements for anemia - Discussed plan with Dr. Emilia Steven PGY-3
[2017-04-06] MEDS: Vitamin B Complex/Vitamin C Tab PO SCH (10:15)
[2017-04-06] MEDS: guaiFENesin 600 mg ER Tab PO SCH ×2 (10:15→17:36)
[2017-04-06] MEDS: Enoxaparin 80 mg Syringe SC SCH ×2 (10:16→21:08)
[2017-04-06] MEDS: MethylPREDNISolone 40 mg Vial IVP SCH (10:16)
--- NOTE | 2017-04-06 18:59 | PN ---
SUBJECTIVE: The patient is experiencing right leg pain. The report of venous Doppler of lower extremity was positive for right popliteal and peroneal vein DVT. The patient denies any chest pain. PHYSICAL EXAMINATION: VITAL SIGNS: Blood pressure 119/76, heart rate 95, temperature 97.9, and respirations 18. HEENT: Pale conjunctiva. CHEST: Bilateral rhonchi. HEART: S1 and S2, regular. EXTREMITIES: No pedal edema. LABORATORY DATA: Hemoglobin and hematocrit 9.3 and 30.3, white count 7.3, platelet count 416,000. Today's SMA-7 is within normal limits except for BUN and creatinine of 7 and 0.5 respectively. Calcium is slightly below normal at 8.3. ASSESSMENT: 1. Right leg deep venous thrombosis. 2. Chronic obstructive lung disease. 3. Improved right-sided failure. 4. Status post low anterior resection for rectosigmoid cancer. RECOMMENDATIONS: Continue subcutaneous Lovenox at 70 mg once a day. Consider initiating Coumadin therapy at one point. Continue Solu-Medrol at 40 mg twice daily. Continue Singulair, Mucinex LA as well as IV Protonix. Mukesh Correia MD
--- NOTE | 2017-04-07 00:27 | CP.PCM.PN ---
Subjective - Date & Time of Evaluation Date of Evaluation: 04/07/17 - Subjective Subjective: mild on and off abdominal pain, no fever, no sob, no chest pain, cough, less congested Objective - Vital Signs/Intake and Output Vital Signs (last 24 hours): Temp Pulse Resp BP Pulse Ox 98.3 F 86 18 135/83 100 04/06/17 15:57 04/06/17 23:40 04/06/17 20:00 04/06/17 20:00 04/06/17 15:57 Intake and Output: 04/06/17 04/07/17 18:59 06:59 Intake Total 1000 920 Output Total 150 100 Balance 850 820 - Medications Medications: Current Medications Albuterol/Ipratropium (Duoneb 3 Mg/0.5 Mg (3 Ml) Ud) 3 ml INH RQ6 [facility] Last Admin: 04/06/17 20:27 Dose: 3 ml Alprazolam (Xanax) 0.5 mg PO Q12H [facility] Last Admin: 04/06/17 21:03 Dose: 0.5 mg Enoxaparin Sodium (Lovenox) 70 mg SC Q12 [facility] Last Admin: 04/06/17 21:08 Dose: 70 mg Fluconazole (Diflucan) 100 mg PO DAILY [facility] Last Admin: 04/06/17 10:15 Dose: 100 mg Guaifenesin (Mucinex La) 600 mg PO BID [facility] Last Admin: 04/06/17 17:36 Dose: 600 mg Home Med (Patient's Own Inhalation Solution) 1 ml INH RBID [facility] Last Admin: 04/06/17 20:27 Dose: 1 ml Insulin Glargine (Lantus) 16 unit SC HS [facility] Last Admin: 03/26/17 22:06 Dose: Not Given Insulin Human Regular (Novolin R) 0 unit SC Q6H [facility] PRN Reason: Protocol Last Admin: 04/06/17 23:54 Dose: Not Given Ketorolac Tromethamine (Toradol) 15 mg IVP Q6 [facility] Last Admin: 04/07/17 00:11 Dose: 15 mg Metformin HCl (Glucophage) 1,000 mg PO BID [facility] Last Admin: 04/06/17 18:00 Dose: Not Given Methylprednisolone (Solu-Medrol) 40 mg IVP DAILY [facility] Last Admin: 04/06/17 10:16 Dose: 40 mg Montelukast Sodium (Singulair) 10 mg PO HS [facility] Last Admin: 04/06/17 21:02 Dose: 10 mg Morphine Sulfate (Morphine) 2 mg IVP Q4H PRN PRN Reason: Pain, severe (8-10) Last Admin: 04/06/17 20:56 Dose: 2 mg Ondansetron HCl (Zofran Inj) 4 mg IVP Q4 PRN PRN Reason: Nausea/Vomiting Last Admin: 04/03/17 16:14 Dose: 4 mg Oxycodone HCl (Oxycodone Immediate Release Tab) 5 mg PO Q6 PRN PRN Reason: Pain, moderate (4-7) Last Admin: 04/05/17 10:17 Dose: 5 mg Pantoprazole Sodium (Protonix Inj) 40 mg IVP DAILY [facility] Last Admin: 04/06/17 10:15 Dose: 40 mg Polyethylene Glycol (Miralax) 17 gm PO DAILY [facility] Last Admin: 03/25/17 09:25 Dose: 17 gm Pregabalin (Lyrica) 50 mg PO BID [facility] Last Admin: 04/06/17 17:36 Dose: 50 mg Roflumilast (Daliresp) 500 mcg PO DAILY [facility] Last Admin: 04/06/17 10:15 Dose: 500 mcg Vitamin B Complex/Vitamin C (Berocca) 1 tab PO DAILY [facility] Last Admin: 04/06/17 10:15 Dose: 1 tab - Labs Labs: 04/06/17 06:16 04/06/17 06:16 PT 11.7 SECONDS (9.7-12.2) 03/27/17 07:00 INR 1.0 03/27/17 07:00 APTT 27 SECONDS (21-34) 03/27/17 07:00 - Constitutional Appears: Non-toxic, No Acute Distress, Chronically Ill - Head Exam Head Exam: ATRAUMATIC, NORMAL INSPECTION, NORMOCEPHALIC - Eye Exam Eye Exam: EOMI, Normal appearance Pupil Exam: NORMAL ACCOMODATION - ENT Exam ENT Exam: Mucous Membranes Moist, Normal Exam, Normal Oropharynx, TM's Normal Bilaterally - Neck Exam Neck Exam: Normal Inspection - Respiratory Exam Respiratory Exam: Rhonchi, NORMAL BREATHING PATTERN - Cardiovascular Exam Cardiovascular Exam: Tachycardia, REGULAR RHYTHM, +S1, +S2 - GI/Abdominal Exam GI & Abdominal Exam: Soft, Normal Bowel Sounds - Rectal Exam Rectal Exam: NORMAL INSPECTION - Back Exam Back Exam: NORMAL INSPECTION - Neurological Exam Neurological Exam: Abnormal Gait, Alert, CN II-XII Intact, Oriented x3 Neuro motor strength exam: Left Upper Extremity: 5, Right Upper Extremity: 5, Left Lower Extremity: 5, Right Lower Extremity: 5 - Psychiatric Exam Psychiatric exam: Anxious, Flat Affect Assessment and Plan (1) Anemia Status: Chronic (2) COPD (chronic obstructive pulmonary disease) with emphysema Status: Acute (3) Allergic rhinitis Status: Chronic (4) Diabetes Status: Chronic
[2017-04-07] MEDS: Albuterol-Ipratrop 3 mg / 0.5 (3 ml) UD INH SCH ×4 (02:22→19:43)
[2017-04-07] MEDS: (Novolin R) Insulin Human Regular 100 units/ml vial SC SCH ×3 (06:26→17:59)
[2017-04-07] MEDS: BROVANA 15 MCG/2 ML INH SCH ×2 (07:22→19:43)
[2017-04-07] MEDS: Sodium Chloride 0.9% 1,000 ML IV SCH (08:08)
[2017-04-07] MEDS: MethylPREDNISolone 40 mg Vial IVP SCH (09:21)
[2017-04-07] MEDS: guaiFENesin 600 mg ER Tab PO SCH ×2 (10:00→17:57)
[2017-04-07] MEDS: Vitamin B Complex/Vitamin C Tab PO SCH (10:09)
--- NOTE | 2017-04-07 10:16 | CP.PCM.PN ---
Subjective - Date & Time of Evaluation Date of Evaluation: 04/07/17 Time of Evaluation: 10:10 - Subjective Subjective: General Surgery Progress Note for Dr. Nieto Patient seen and examined at bedside. No acute event overnight. Patient complaining of some abd pain after eating yogurt. He had associated nausea but no vomiting. Patient on full liquid diet and advised to take it slow. Ileostomy is function properly with brown stool output. No other complaints at this time. Objective - Vital Signs/Intake and Output Vital Signs (last 24 hours): Temp Pulse Resp BP Pulse Ox 98.0 F 104 H 18 138/82 100 04/07/17 08:25 04/07/17 08:25 04/07/17 08:25 04/07/17 08:25 04/07/17 08:25 Intake and Output: 04/07/17 04/07/17 06:59 18:59 Intake Total 920 Output Total 500 Balance 420 - Medications Medications: Current Medications Albuterol/Ipratropium (Duoneb 3 Mg/0.5 Mg (3 Ml) Ud) 3 ml INH RQ6 [facility] Last Admin: 04/07/17 07:21 Dose: 3 ml Alprazolam (Xanax) 0.5 mg PO Q12H [facility] Last Admin: 04/06/17 21:03 Dose: 0.5 mg Enoxaparin Sodium (Lovenox) 70 mg SC Q12 [facility] Last Admin: 04/06/17 21:08 Dose: 70 mg Fluconazole (Diflucan) 100 mg PO DAILY [facility] Last Admin: 04/06/17 10:15 Dose: 100 mg Guaifenesin (Mucinex La) 600 mg PO BID [facility] Last Admin: 04/06/17 17:36 Dose: 600 mg Home Med (Patient's Own Inhalation Solution) 1 ml INH RBID [facility] Last Admin: 04/07/17 07:22 Dose: 1 ml Insulin Glargine (Lantus) 16 unit SC HS [facility] Last Admin: 03/26/17 22:06 Dose: Not Given Insulin Human Regular (Novolin R) 0 unit SC Q6H [facility] PRN Reason: Protocol Last Admin: 04/07/17 06:26 Dose: Not Given Metformin HCl (Glucophage) 1,000 mg PO BID [facility] Last Admin: 04/07/17 09:17 Dose: Not Given Methylprednisolone (Solu-Medrol) 40 mg IVP DAILY [facility] Last Admin: 04/07/17 09:21 Dose: 40 mg Montelukast Sodium (Singulair) 10 mg PO HS [facility] Last Admin: 04/06/17 21:02 Dose: 10 mg Morphine Sulfate (Morphine) 2 mg IVP Q4H PRN PRN Reason: Pain, severe (8-10) Last Admin: 04/07/17 04:31 Dose: 2 mg Ondansetron HCl (Zofran Inj) 4 mg IVP Q4 PRN PRN Reason: Nausea/Vomiting Last Admin: 04/07/17 08:06 Dose: 4 mg Oxycodone HCl (Oxycodone Immediate Release Tab) 5 mg PO Q6 PRN PRN Reason: Pain, moderate (4-7) Last Admin: 04/05/17 10:17 Dose: 5 mg Pantoprazole Sodium (Protonix Inj) 40 mg IVP DAILY [facility] Last Admin: 04/07/17 09:21 Dose: 40 mg Polyethylene Glycol (Miralax) 17 gm PO DAILY [facility] Last Admin: 03/25/17 09:25 Dose: 17 gm Pregabalin (Lyrica) 50 mg PO BID [facility] Last Admin: 04/06/17 17:36 Dose: 50 mg Roflumilast (Daliresp) 500 mcg PO DAILY [facility] Last Admin: 04/06/17 10:15 Dose: 500 mcg Vitamin B Complex/Vitamin C (Berocca) 1 tab PO DAILY [facility] Last Admin: 04/06/17 10:15 Dose: 1 tab - Labs Labs: 04/06/17 06:16 04/06/17 06:16 PT 11.7 SECONDS (9.7-12.2) 03/27/17 07:00 INR 1.0 03/27/17 07:00 APTT 27 SECONDS (21-34) 03/27/17 07:00 - Constitutional Appears: No Acute Distress - Head Exam Head Exam: ATRAUMATIC, NORMOCEPHALIC Additional comments: BIPAP in place - Eye Exam Eye Exam: Normal appearance - ENT Exam Additional comments: BIPAP mask - Respiratory Exam Respiratory Exam: NORMAL BREATHING PATTERN (BIPAP) - Cardiovascular Exam Cardiovascular Exam: Tachycardia - GI/Abdominal Exam GI & Abdominal Exam: Soft, Tenderness (near incision). 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 Nieto - f/u Heme/onc recommenations - Will DW Dr[facility] PGY1
[2017-04-07] MEDS: Enoxaparin 80 mg Syringe SC SCH ×2 (10:40→21:38)
--- NOTE | 2017-04-07 15:06 | CP.PCM.PN ---
Objective - Vital Signs/Intake and Output Vital Signs (last 24 hours): Temp Pulse Resp BP Pulse Ox 98.0 F 104 H 18 138/82 100 04/07/17 08:25 04/07/17 08:25 04/07/17 08:25 04/07/17 08:25 04/07/17 08:25 Intake and Output: 04/07/17 04/07/17 06:59 18:59 Intake Total 920 250 Output Total 500 150 Balance 420 100 - Medications Medications: Current Medications Albuterol/Ipratropium (Duoneb 3 Mg/0.5 Mg (3 Ml) Ud) 3 ml INH RQ6 [facility] Last Admin: 04/07/17 13:15 Dose: 3 ml Alprazolam (Xanax) 0.5 mg PO Q12H [facility] Last Admin: 04/07/17 12:23 Dose: 0.5 mg Enoxaparin Sodium (Lovenox) 70 mg SC Q12 [facility] Last Admin: 04/07/17 10:40 Dose: 70 mg Fluconazole (Diflucan) 100 mg PO DAILY [facility] Last Admin: 04/07/17 10:00 Dose: Not Given Guaifenesin (Mucinex La) 600 mg PO BID [facility] Last Admin: 04/07/17 10:00 Dose: Not Given Home Med (Patient's Own Inhalation Solution) 1 ml INH RBID [facility] Last Admin: 04/07/17 07:22 Dose: 1 ml Insulin Glargine (Lantus) 16 unit SC [facility] Last Admin: 03/26/17 22:06 Dose: Not Given Insulin Human Regular (Novolin R) 0 unit SC Q6H [facility] PRN Reason: Protocol Last Admin: 04/07/17 12:00 Dose: Not Given Metformin HCl (Glucophage) 1,000 mg PO BID [facility] Last Admin: 04/07/17 09:17 Dose: Not Given Methylprednisolone (Solu-Medrol) 40 mg IVP DAILY [facility] Last Admin: 04/07/17 09:21 Dose: 40 mg Montelukast Sodium (Singulair) 10 mg PO HS [facility] Last Admin: 04/06/17 21:02 Dose: 10 mg Morphine Sulfate (Morphine) 2 mg IVP Q4H PRN PRN Reason: Pain, severe (8-10) Last Admin: 04/07/17 12:23 Dose: 2 mg Ondansetron HCl (Zofran Inj) 4 mg IVP Q4 PRN PRN Reason: Nausea/Vomiting Last Admin: 04/07/17 08:06 Dose: 4 mg Oxycodone HCl (Oxycodone Immediate Release Tab) 5 mg PO Q6 PRN PRN Reason: Pain, moderate (4-7) Last Admin: 04/05/17 10:17 Dose: 5 mg Pantoprazole Sodium (Protonix Inj) 40 mg IVP DAILY [facility] Last Admin: 04/07/17 09:21 Dose: 40 mg Polyethylene Glycol (Miralax) 17 gm PO DAILY [facility] Last Admin: 03/25/17 09:25 Dose: 17 gm Pregabalin (Lyrica) 50 mg PO BID [facility] Last Admin: 04/07/17 10:00 Dose: Not Given Roflumilast (Daliresp) 500 mcg PO DAILY [facility] Last Admin: 04/07/17 10:00 Dose: Not Given Vitamin B Complex/Vitamin C (Berocca) 1 tab PO DAILY [facility] Last Admin: 04/07/17 10:09 Dose: Not Given - Labs Labs: 04/06/17 06:16 04/06/17 06:16 PT 11.7 SECONDS (9.7-12.2) 03/27/17 07:00 INR 1.0 03/27/17 07:00 APTT 27 SECONDS (21-34) 03/27/17 07:00 Assessment and Plan (1) Anemia Status: Chronic (2) COPD (chronic obstructive pulmonary disease) with emphysema Status: Acute (3) Allergic rhinitis Status: Chronic (4) Diabetes Status: Chronic
--- NOTE | 2017-04-07 16:27 | PN ---
SUBJECTIVE: The patient still cannot tolerate diet. He develops nausea and vomiting. He denies any chest pain. PHYSICAL EXAMINATION: VITAL SIGNS: Blood pressure 138/82, heart rate is 104, temperature 98, and respirations 18. HEENT: Normocephalic. CHEST: Minimal bilateral rhonchi. HEART: S1 and S2, regular. EXTREMITIES: No pedal edema. LABORATORY DATA: Today's blood sugar is 109 and 148. ASSESSMENT: 1. Chronic obstructive lung disease. 2. Improved right-sided failure. 3. Ileus. 4. Right popliteal and peroneal vein deep vein thrombosis. 5. Diabetes mellitus. RECOMMENDATIONS: Continue current albuterol inhaler, continue Glucophage 1 g twice a day, therapeutic subcutaneous Lovenox at 70 mg twice a day, Mucinex LA at 600 mg twice a day, Protonix at 40 mg intravenous once a day, Solu-Medrol 40 mg intravenous once a day, Zofran 4 mg intravenously q. 4 hours p.r.n. Mukesh Correia MD
[2017-04-07] MEDS: Aluminum Hydroxide/Magnesium Hydroxide Susp (30 mL) PO PRN (16:29)
[2017-04-07] MEDS: oxyCODONE 5 mg Immediate Release Tab PO PRN ×2 (16:30→22:16)
[2017-04-08] MEDS: (Novolin R) Insulin Human Regular 100 units/ml vial SC SCH ×4 (00:28→17:43)
[2017-04-08] MEDS: Albuterol-Ipratrop 3 mg / 0.5 (3 ml) UD INH SCH ×4 (01:46→20:13)
[2017-04-08] MEDS: BROVANA 15 MCG/2 ML INH SCH ×2 (08:08→20:14)
[2017-04-08] MEDS: MethylPREDNISolone 40 mg Vial IVP SCH (09:12)
[2017-04-08] MEDS: Vitamin B Complex/Vitamin C Tab PO SCH (09:25)
[2017-04-08] MEDS: guaiFENesin 600 mg ER Tab PO SCH ×2 (09:25→17:43)
[2017-04-08] MEDS: Enoxaparin 80 mg Syringe SC SCH ×2 (09:25→22:10)
--- NOTE | 2017-04-08 10:51 | CP.PCM.PN ---
Subjective - Date & Time of Evaluation Date of Evaluation: 04/08/17 Time of Evaluation: 06:45 - Subjective Subjective: Patient was seen and examined at bedside. Resting comfortably in NAD. No events noted overnight. Passing urine and BM (via ileostomy) without issue. This morning, patient reports mild-moderate pain to the abdomen along with general feelings of nausea. He states that he has minimal appetite today and was unable to eat yesterday 2/2 nausea. Denies signs of vomiting, CP, SOB, fever or chills. No other complaints noted at this time. Objective - Vital Signs/Intake and Output Vital Signs (last 24 hours): Temp Pulse Resp BP Pulse Ox 97.6 F 109 H 18 125/75 100 04/08/17 08:49 04/08/17 08:49 04/08/17 08:49 04/08/17 08:49 04/08/17 08:49 Intake and Output: 04/08/17 04/08/17 06:59 18:59 Intake Total 500 Output Total 980 Balance -480 - Medications Medications: Current Medications Al Hydrox/Mg Hydrox/Simethicone (Maalox 30 Ml) 15 ml PO TID PRN PRN Reason: Indigestion / Heartburn Last Admin: 04/07/17 16:29 Dose: 15 ml Albuterol/Ipratropium (Duoneb 3 Mg/0.5 Mg (3 Ml) Ud) 3 ml INH RQ6 [facility] Last Admin: 04/08/17 07:14 Dose: 3 ml Alprazolam (Xanax) 0.5 mg PO Q12H [facility] Last Admin: 04/08/17 09:25 Dose: 0.5 mg Enoxaparin Sodium (Lovenox) 70 mg SC Q12 [facility] Last Admin: 04/08/17 09:25 Dose: 70 mg Guaifenesin (Mucinex La) 600 mg PO BID [facility] Last Admin: 04/08/17 09:25 Dose: 600 mg Home Med (Patient's Own Inhalation Solution) 1 ml INH RBID [facility] Last Admin: 04/08/17 08:08 Dose: Not Given Insulin Glargine (Lantus) 16 unit SC HS [facility] Last Admin: 03/26/17 22:06 Dose: Not Given Insulin Human Regular (Novolin R) 0 unit SC Q6H [facility] PRN Reason: Protocol Last Admin: 04/08/17 07:00 Dose: Not Given Metformin HCl (Glucophage) 1,000 mg PO BID [facility] Last Admin: 04/07/17 17:59 Dose: Not Given Methylprednisolone (Solu-Medrol) 40 mg IVP DAILY [facility] Last Admin: 04/08/17 09:12 Dose: 40 mg Montelukast Sodium (Singulair) 10 mg PO HS [facility] Last Admin: 04/07/17 21:38 Dose: 10 mg Morphine Sulfate (Morphine) 2 mg IVP Q4H PRN PRN Reason: Pain, severe (8-10) Last Admin: 04/07/17 12:23 Dose: 2 mg Ondansetron HCl (Zofran Inj) 4 mg IVP Q4 PRN PRN Reason: Nausea/Vomiting Last Admin: 04/08/17 09:32 Dose: 4 mg Oxycodone HCl (Oxycodone Immediate Release Tab) 5 mg PO Q6 PRN PRN Reason: Pain, moderate (4-7) Last Admin: 04/07/17 22:16 Dose: 5 mg Pantoprazole Sodium (Protonix Inj) 40 mg IVP DAILY [facility] Last Admin: 04/08/17 09:12 Dose: 40 mg Polyethylene Glycol (Miralax) 17 gm PO DAILY [facility] Last Admin: 03/25/17 09:25 Dose: 17 gm Pregabalin (Lyrica) 50 mg PO BID [facility] Last Admin: 04/07/17 17:57 Dose: 50 mg Roflumilast (Daliresp) 500 mcg PO DAILY [facility] Last Admin: 04/07/17 10:00 Dose: Not Given Vitamin B Complex/Vitamin C (Berocca) 1 tab PO DAILY [facility] Last Admin: 04/08/17 09:25 Dose: 1 tab - Labs Labs: 04/06/17 06:16 04/06/17 06:16 PT 11.7 SECONDS (9.7-12.2) 03/27/17 07:00 INR 1.0 03/27/17 07:00 APTT 27 SECONDS (21-34) 03/27/17 07:00 - Constitutional Appears: Non-toxic, No Acute Distress - Respiratory Exam Respiratory Exam: Clear to Ausculation Bilateral, NORMAL BREATHING PATTERN - Cardiovascular Exam Cardiovascular Exam: REGULAR RHYTHM, +S1, +S2 - GI/Abdominal Exam GI & Abdominal Exam: Distended, Soft. absent: Firm, Guarding, Rigid, Tenderness , Rebound Additional comments: retention sutures in place, ostomy filled with air, drain- serosanguinous output - Neurological Exam Neurological Exam: Alert, Awake Assessment and Plan - Assessment and Plan (Free Text) Assessment: 66 yo M who is POD#12 from [facility] for rectum mass. - PT ordered - Strongly encouraged IS and ambulation - US: posterior tibial and peroneal vein DVT - Therapeutic Lovenox - f/u Heme/onc recommenations Further recs discuss with Dr Emilia Harding, [email or web address]
[2017-04-08] MEDS: Aluminum Hydroxide/Magnesium Hydroxide Susp (30 mL) PO PRN ×2 (17:43→22:10)
[2017-04-08] MEDS: oxyCODONE 5 mg Immediate Release Tab PO PRN (19:03)
--- NOTE | 2017-04-08 23:44 | CP.PCM.PN ---
Subjective - Date & Time of Evaluation Date of Evaluation: 04/08/17 - Subjective Subjective: LESS ABDOMEN, NO NAUSEA VOMITING, NO SOB, LESS SOB Objective - Vital Signs/Intake and Output Vital Signs (last 24 hours): Temp Pulse Resp BP Pulse Ox 98 F 107 H 20 124/67 96 04/08/17 15:18 04/08/17 15:18 04/08/17 15:18 04/08/17 15:18 04/08/17 15:18 Intake and Output: 04/08/17 04/09/17 18:59 06:59 Intake Total 300 320 Output Total 580 30 Balance -280 290 - Medications Medications: Current Medications Al Hydrox/Mg Hydrox/Simethicone (Maalox 30 Ml) 15 ml PO TID PRN PRN Reason: Indigestion / Heartburn Last Admin: 04/08/17 22:10 Dose: 15 ml Albuterol/Ipratropium (Duoneb 3 Mg/0.5 Mg (3 Ml) Ud) 3 ml INH RQ6 [facility] Last Admin: 04/08/17 20:13 Dose: 3 ml Alprazolam (Xanax) 0.5 mg PO Q12H [facility] Last Admin: 04/08/17 22:00 Dose: 0.5 mg Guaifenesin (Mucinex La) 600 mg PO BID [facility] Last Admin: 04/08/17 17:43 Dose: 600 mg Home Med (Patient's Own Inhalation Solution) 1 ml INH RBID [facility] Last Admin: 04/08/17 20:14 Dose: 1 ml Insulin Glargine (Lantus) 16 unit SC [facility] Last Admin: 03/26/17 22:06 Dose: Not Given Insulin Human Regular (Novolin R) 0 unit SC Q6H [facility] PRN Reason: Protocol Last Admin: 04/08/17 17:43 Dose: Not Given Metformin HCl (Glucophage) 1,000 mg PO BID [facility] Last Admin: 04/08/17 17:43 Dose: Not Given Methylprednisolone (Solu-Medrol) 40 mg IVP DAILY [facility] Last Admin: 04/08/17 09:12 Dose: 40 mg Montelukast Sodium (Singulair) 10 mg PO HS [facility] Last Admin: 04/08/17 22:10 Dose: 10 mg Morphine Sulfate (Morphine) 2 mg IVP Q4H PRN PRN Reason: Pain, severe (8-10) Last Admin: 04/07/17 12:23 Dose: 2 mg Ondansetron HCl (Zofran Inj) 4 mg IVP Q4 PRN PRN Reason: Nausea/Vomiting Last Admin: 04/08/17 09:32 Dose: 4 mg Oxycodone HCl (Oxycodone Immediate Release Tab) 5 mg PO Q6 PRN PRN Reason: Pain, moderate (4-7) Last Admin: 04/08/17 19:03 Dose: 5 mg Pantoprazole Sodium (Protonix Inj) 40 mg IVP DAILY [facility] Last Admin: 04/08/17 09:12 Dose: 40 mg Polyethylene Glycol (Miralax) 17 gm PO DAILY [facility] Last Admin: 03/25/17 09:25 Dose: 17 gm Pregabalin (Lyrica) 50 mg PO BID [facility] Last Admin: 04/08/17 17:43 Dose: 50 mg Roflumilast (Daliresp) 500 mcg PO DAILY [facility] Last Admin: 04/07/17 10:00 Dose: Not Given Vitamin B Complex/Vitamin C (Berocca) 1 tab PO DAILY [facility] Last Admin: 04/08/17 09:25 Dose: 1 tab - Labs Labs: 04/06/17 06:16 04/06/17 06:16 PT 11.7 SECONDS (9.7-12.2) 03/27/17 07:00 INR 1.0 03/27/17 07:00 APTT 27 SECONDS (21-34) 03/27/17 07:00 - Constitutional Appears: Non-toxic, No Acute Distress, Chronically Ill - Head Exam Head Exam: ATRAUMATIC, NORMAL INSPECTION, NORMOCEPHALIC - Eye Exam Eye Exam: EOMI, Normal appearance, PERRL Pupil Exam: NORMAL ACCOMODATION - ENT Exam ENT Exam: Mucous Membranes Moist, Normal Exam, Normal Oropharynx, TM's Normal Bilaterally - Neck Exam Neck Exam: Normal Inspection - Respiratory Exam Respiratory Exam: Prolonged Expiratory Phase, Rales, Rhonchi - Cardiovascular Exam Cardiovascular Exam: REGULAR RHYTHM - GI/Abdominal Exam GI & Abdominal Exam: Soft, Normal Bowel Sounds - Rectal Exam Rectal Exam: NORMAL INSPECTION - Extremities Exam Extremities Exam: Normal Capillary Refill, Normal Inspection - Back Exam Back Exam: NORMAL INSPECTION - Neurological Exam Neurological Exam: Alert, Awake, CN II-XII Intact, Normal Gait, Oriented x3 - Psychiatric Exam Psychiatric exam: Anxious, Flat Affect - Skin Skin Exam: Intact Assessment and Plan (1) Anemia Status: Chronic (2) COPD (chronic obstructive pulmonary disease) with emphysema Status: Acute (3) Allergic rhinitis Status: Chronic (4) Diabetes Status: Chronic
--- NOTE | 2017-04-09 00:21 | PN ---
SUBJECTIVE: The patient denies any vomiting. No chest pain. PHYSICAL EXAMINATION: VITAL SIGNS: Blood pressure 125/75, heart rate 119, temperature 97.6, respirations 18. HEENT: Pale conjunctiva. CHEST: Bilateral rhonchi. HEART: S1 and S2, regular. ABDOMEN: Diminished bowel sounds. EXTREMITIES: No edema or calf tenderness. ASSESSMENT: 1. Chronic obstructive lung disease and cor pulmonale. 2. Ileus. 3. Right popliteal and peroneal vein deep vein thrombosis. 4. Anemia. 5. Uncontrolled diabetes mellitus. RECOMMENDATIONS: Continue current conservative medical approach including albuterol inhaler, therapeutic subcutaneous Lovenox at 70 mg twice a day, IV Protonix at 40 mg once a day, Solu-Medrol 40 mg intravenous once a day. Mukesh Correia MD
[2017-04-09] MEDS: (Novolin R) Insulin Human Regular 100 units/ml vial SC SCH ×4 (00:56→18:30)
[2017-04-09] MEDS: Albuterol-Ipratrop 3 mg / 0.5 (3 ml) UD INH SCH ×2 (01:35→07:21)
[2017-04-09] MEDS: BROVANA 15 MCG/2 ML INH SCH ×2 (07:21→20:16)
--- NOTE | 2017-04-09 09:40 | VASCLAB ---
PROCEDURE: Lower Extremity Venous Duplex Exam. HISTORY: Shortness of breath. PRIORS: Last vascular lower venous study 09/18/2016, normal. TECHNIQUE: Bilateral common femoral, femoral, popliteal and posterior tibial, peroneal and great saphenous veins were evaluated. Flow was assessed with color Doppler, compressibility, assessment of phasic flow and augmentation response. Report prepared by DAMIAN Nicolas FINDINGS: RIGHT: 1. Common Femoral Vein: 1.1. Compressibility - Fully compressible: Thrombus - None : Flow - Phasic: Augmentation -Normal: Reflux - None. 2. Femoral Vein: 2.1. Compressibility - Fully compressible: Thrombus - None : Flow - Phasic: Augmentation -Normal: Reflux - None. 3. Popliteal Vein: 3.1. Compressibility - Fully compressible: Thrombus - None : Flow - Phasic: Augmentation -Normal: Reflux - None. 4. Posterior Tibial Vein: (one vein non compressible)(proximal calf) 4.1. Compressibility - Incompressible: Thrombus - Acute: Flow - Reduced 5. Peroneal Vein: 5.1. Compressibility - Partial: Thrombus - Acute: Flow - Reduced 6. Great Saphenous Vein: 6.1. Compressibility - Fully compressible: Thrombus - None: Flow - Phasic: Augmentation - Normal: Reflux - None. LEFT: 1. Common Femoral Vein: 1.1. Compressibility - Fully compressible: Thrombus - None: Flow - Phasic: Augmentation -Normal: Reflux - None. 2. Femoral Vein: 2.1. Compressibility - Fully compressible: Thrombus - None: Flow - Phasic: Augmentation -Normal: Reflux - None. 3. Popliteal Vein: 3.1. Compressibility - Fully compressible: Thrombus - None : Flow - Phasic: Augmentation -Normal: Reflux - None. 4. Posterior Tibial Vein: 4.1. Compressibility - Fully compressible: Thrombus - None: Flow - Phasic: Augmentation -Normal: Reflux - None. 5. Peroneal Vein: 5.1. Compressibility - Fully compressible: Thrombus - None: Flow - Phasic: Augmentation -Normal: Reflux - None. 6. Great Saphenous Vein: 6.1. Compressibility - Fully compressible: Thrombus - None: Flow - Phasic: Augmentation - Normal: Reflux - None. OTHER FINDINGS: RIGHT: One of the paired posterior tibial veins was non compressible, at the proximal calf level. The peroneal veins were partially compressible. This exam was completed at 9:30 a.m. Findings were reported by the cardiopulmonary technologist chief, to Xiomara Lee at 9:33 a.m. IMPRESSION: Right: Deep vein thrombosis of one right posterior tibial, and of the peroneal veins, with severe reduction of the venous return. Left: No evidence of deep or superficial vein thrombosis of the left lower extremity. Normal valve function noted of the left side.
[2017-04-09] MEDS: guaiFENesin 600 mg ER Tab PO SCH ×2 (09:54→18:30)
[2017-04-09] MEDS: MethylPREDNISolone 40 mg Vial IVP SCH (09:54)
[2017-04-09] MEDS: Vitamin B Complex/Vitamin C Tab PO SCH (09:55)
[2017-04-09] MEDS: oxyCODONE 5 mg Immediate Release Tab PO PRN ×2 (11:12→19:15)
--- NOTE | 2017-04-09 15:03 | CP.PCM.PN ---
Subjective - Date & Time of Evaluation Date of Evaluation: 04/09/17 Time of Evaluation: 07:00 - Subjective Subjective: SURGERY PROGRESS NOTE FOR DR. MANZANO Patient seen and examined at bedside. He denies nausea or vomiting and is tolerating the full liquid diet. He had a small BM per rectum yesterday. He is requesting soft food. He ambulated only 7 feet with PT and then had pain and was unable to walk further. Pt reports feeling weak and fatigued. He has stool output into the ostomy bag. BIPAP in place. He is using his IS. Objective - Vital Signs/Intake and Output Vital Signs (last 24 hours): Temp Pulse Resp BP Pulse Ox 97.4 F L 111 H 20 130/76 99 04/09/17 07:20 04/09/17 07:20 04/09/17 07:20 04/09/17 07:20 04/09/17 07:20 Intake and Output: 04/09/17 04/09/17 06:59 18:59 Intake Total 320 Output Total 460 Balance -140 - Medications Medications: Current Medications Al Hydrox/Mg Hydrox/Simethicone (Maalox 30 Ml) 15 ml PO TID PRN PRN Reason: Indigestion / Heartburn Last Admin: 04/08/17 22:10 Dose: 15 ml Alprazolam (Xanax) 0.5 mg PO Q12H [facility] Last Admin: 04/09/17 09:54 Dose: 0.5 mg Enoxaparin Sodium (Lovenox) 70 mg SC Q12 [facility] Guaifenesin (Mucinex La) 600 mg PO BID [facility] Last Admin: 04/09/17 09:54 Dose: 600 mg Home Med (Patient's Own Inhalation Solution) 1 ml INH RBID [facility] Last Admin: 04/09/17 07:21 Dose: 1 ml Insulin Glargine (Lantus) 16 unit SC HS [facility] Last Admin: 03/26/17 22:06 Dose: Not Given Insulin Human Regular (Novolin R) 0 unit SC Q6H [facility] PRN Reason: Protocol Last Admin: 04/09/17 11:30 Dose: Not Given Metformin HCl (Glucophage) 1,000 mg PO BID [facility] Last Admin: 04/09/17 10:00 Dose: Not Given Methylprednisolone (Solu-Medrol) 40 mg IVP DAILY [facility] Last Admin: 04/09/17 09:54 Dose: 40 mg Montelukast Sodium (Singulair) 10 mg PO HS [facility] Last Admin: 04/08/17 22:10 Dose: 10 mg Morphine Sulfate (Morphine) 2 mg IVP Q4H PRN PRN Reason: Pain, severe (8-10) Last Admin: 04/09/17 08:35 Dose: 2 mg Ondansetron HCl (Zofran Inj) 4 mg IVP Q4 PRN PRN Reason: Nausea/Vomiting Last Admin: 04/08/17 09:32 Dose: 4 mg Oxycodone HCl (Oxycodone Immediate Release Tab) 5 mg PO Q6 PRN PRN Reason: Pain, moderate (4-7) Last Admin: 04/09/17 11:12 Dose: 5 mg Pantoprazole Sodium (Protonix Inj) 40 mg IVP DAILY [facility] Last Admin: 04/09/17 09:54 Dose: 40 mg Polyethylene Glycol (Miralax) 17 gm PO DAILY [facility] Last Admin: 03/25/17 09:25 Dose: 17 gm Pregabalin (Lyrica) 50 mg PO BID [facility] Last Admin: 04/09/17 09:55 Dose: 50 mg Roflumilast (Daliresp) 500 mcg PO DAILY [facility] Last Admin: 04/09/17 09:56 Dose: 500 mcg Vitamin B Complex/Vitamin C (Berocca) 1 tab PO DAILY [facility] Last Admin: 04/09/17 09:55 Dose: 1 tab - Labs Labs: 04/06/17 06:16 04/06/17 06:16 PT 11.7 SECONDS (9.7-12.2) 03/27/17 07:00 INR 1.0 03/27/17 07:00 APTT 27 SECONDS (21-34) 03/27/17 07:00 - Constitutional Appears: Non-toxic, No Acute Distress - Head Exam Head Exam: ATRAUMATIC, NORMAL INSPECTION - Eye Exam Eye Exam: EOMI, Normal appearance - Respiratory Exam Respiratory Exam: NORMAL BREATHING PATTERN (bipap). absent: Respiratory Distress - Cardiovascular Exam Cardiovascular Exam: +S1, +S2 - GI/Abdominal Exam GI & Abdominal Exam: Rigid, Soft, Normal Bowel Sounds. 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 - US + for right posterior tibial and peroneal vein DVT - Therapeutic Lovenox 70mg Q12 - No need for IVC Filter per Dr. Manzano - Recommend iron supplements for anemia or as per heme/onc - Discussed plan with Dr. Emilia Steven PGY-3
[2017-04-09] MEDS: Aluminum Hydroxide/Magnesium Hydroxide Susp (30 mL) PO PRN (16:34)
--- NOTE | 2017-04-09 19:47 | CP.PCM.PN ---
Subjective - Date & Time of Evaluation Date of Evaluation: 04/09/17 - Subjective Subjective: OCC ABDOMINAL PAIN, NO NAUSEA, NO CHEST PAIN, NO SOB Objective - Vital Signs/Intake and Output Vital Signs (last 24 hours): Temp Pulse Resp BP Pulse Ox 97.8 F 130 H 22 104/66 98 04/09/17 15:54 04/09/17 15:54 04/09/17 15:54 04/09/17 15:54 04/09/17 15:54 Intake and Output: 04/09/17 04/10/17 18:59 06:59 Intake Total 400 Balance 400 - Medications Medications: Current Medications Al Hydrox/Mg Hydrox/Simethicone (Maalox 30 Ml) 15 ml PO TID PRN PRN Reason: Indigestion / Heartburn Last Admin: 04/09/17 16:34 Dose: 15 ml Alprazolam (Xanax) 0.5 mg PO Q12H [facility] Last Admin: 04/09/17 09:54 Dose: 0.5 mg Enoxaparin Sodium (Lovenox) 70 mg SC Q12 [facility] Guaifenesin (Mucinex La) 600 mg PO BID [facility] Last Admin: 04/09/17 18:30 Dose: 600 mg Home Med (Patient's Own Inhalation Solution) 1 ml INH RBID [facility] Last Admin: 04/09/17 07:21 Dose: 1 ml Insulin Glargine (Lantus) 16 unit SC [facility] Last Admin: 03/26/17 22:06 Dose: Not Given Insulin Human Regular (Novolin R) 0 unit SC Q6H [facility] PRN Reason: Protocol Last Admin: 04/09/17 18:30 Dose: 4 unit Metformin HCl (Glucophage) 1,000 mg PO BID [facility] Last Admin: 04/09/17 18:30 Dose: 1,000 mg Methylprednisolone (Solu-Medrol) 40 mg IVP DAILY [facility] Last Admin: 04/09/17 09:54 Dose: 40 mg Montelukast Sodium (Singulair) 10 mg PO HS [facility] Last Admin: 04/08/17 22:10 Dose: 10 mg Morphine Sulfate (Morphine) 2 mg IVP Q4H PRN PRN Reason: Pain, severe (8-10) Last Admin: 04/09/17 08:35 Dose: 2 mg Ondansetron HCl (Zofran Inj) 4 mg IVP Q4 PRN PRN Reason: Nausea/Vomiting Last Admin: 04/08/17 09:32 Dose: 4 mg Oxycodone HCl (Oxycodone Immediate Release Tab) 5 mg PO Q6 PRN PRN Reason: Pain, moderate (4-7) Last Admin: 04/09/17 19:15 Dose: 5 mg Pantoprazole Sodium (Protonix Inj) 40 mg IVP DAILY [facility] Last Admin: 04/09/17 09:54 Dose: 40 mg Polyethylene Glycol (Miralax) 17 gm PO DAILY [facility] Last Admin: 03/25/17 09:25 Dose: 17 gm Pregabalin (Lyrica) 50 mg PO BID [facility] Last Admin: 04/09/17 18:30 Dose: 50 mg Roflumilast (Daliresp) 500 mcg PO DAILY [facility] Last Admin: 04/09/17 10:00 Dose: Not Given Vitamin B Complex/Vitamin C (Berocca) 1 tab PO DAILY [facility] Last Admin: 04/09/17 09:55 Dose: 1 tab - Labs Labs: 04/06/17 06:16 04/06/17 06:16 PT 11.7 SECONDS (9.7-12.2) 03/27/17 07:00 INR 1.0 03/27/17 07:00 APTT 27 SECONDS (21-34) 03/27/17 07:00 - Constitutional Appears: Non-toxic, No Acute Distress, Chronically Ill - Head Exam Head Exam: ATRAUMATIC, NORMAL INSPECTION, NORMOCEPHALIC - Eye Exam Eye Exam: EOMI, Normal appearance, PERRL Pupil Exam: NORMAL ACCOMODATION - ENT Exam ENT Exam: Mucous Membranes Moist, Normal Exam, Normal Oropharynx, TM's Normal Bilaterally - Neck Exam Neck Exam: Normal Inspection - Respiratory Exam Respiratory Exam: Decreased Breath Sounds, Rhonchi - Cardiovascular Exam Cardiovascular Exam: Tachycardia, REGULAR RHYTHM, +S1, +S2 - GI/Abdominal Exam GI & Abdominal Exam: Soft (post op, ileostomy), Normal Bowel Sounds - Rectal Exam Rectal Exam: NORMAL INSPECTION - Extremities Exam Extremities Exam: Normal Capillary Refill, Normal Inspection - Back Exam Back Exam: NORMAL INSPECTION - Neurological Exam Neurological Exam: Alert, Awake, CN II-XII Intact, Normal Gait, Oriented x3 Neuro motor strength exam: Left Upper Extremity: 5, Right Upper Extremity: 5, Left Lower Extremity: 5, Right Lower Extremity: 5 - Psychiatric Exam Psychiatric exam: Anxious, Flat Affect - Skin Skin Exam: Intact Assessment and Plan (1) Anemia Assessment & Plan: ca colon, in situ Status: Chronic (2) COPD (chronic obstructive pulmonary disease) with emphysema Status: Acute (3) Allergic rhinitis Status: Chronic (4) Diabetes Status: Chronic
--- NOTE | 2017-04-09 22:11 | PN ---
DATE: SUBJECTIVE: The patient denies any shortness of breath or chest pain. He is complaining of right lower abdominal pain. PHYSICAL EXAMINATION VITAL SIGNS: Blood pressure 130/76, heart rate 111, temperature 97.4, and respirations 20. HEENT: Pale conjunctivae. CHEST: Bilateral rhonchi. HEART: S1 and S2, regular. EXTREMITIES: No edema or calf tenderness. LABORATORY DATA: Today's blood sugars are 81, 97, and 136. ASSESSMENT: 1. Chronic obstructive lung disease with improved right heart failure. 2. Right popliteal vein deep vein thrombosis. 3. Ileus. 4. Anemia. 5. Uncontrolled diabetes mellitus. RECOMMENDATIONS: Continue therapeutic subcutaneous Lovenox at 70 mg twice a day, Glucophage 1 g twice a day, Mucinex LA 600 mg twice a day, Protonix 40 mg intravenous once a day, and Solu-Medrol 40 mg intravenous daily. Mukesh Correia MD
[2017-04-09] MEDS: Enoxaparin 80 mg Syringe SC SCH (22:31)
[2017-04-10] MEDS: (Novolin R) Insulin Human Regular 100 units/ml vial SC SCH ×5 (00:03→17:58)
[2017-04-10] MEDS: BROVANA 15 MCG/2 ML INH SCH ×2 (07:23→19:52)
[2017-04-10 08:01] LABS: BASO # 0.1 K/uL (0.0-0.2); EOS # 0.1 K/uL (0.0-0.7); EOS % 1.3 % (0.0-4.0); HEMATOCRIT 34.7 % (35.0-51.0); LYMPH # 1.6 K/uL (1.0-4.3); LYMPH % 14.3 % (20.0-40.0); MEAN CELL VOLUME 69.3 fL (80.0-94.0); MEAN CORPUSCULAR HEMOGLOBIN 21.5 pg (27.0-31.0); MONO # 0.9 K/uL (0.0-0.8); MONO % 7.7 % (0.0-10.0); RED CELL DISTRIBUTION WIDTH 31.4 % (11.5-14.5); WHITE BLOOD COUNT 11.1 K/uL (4.8-10.8)
[2017-04-10 08:12] LABS: CHLORIDE 94 mmol/L (98-107)
[2017-04-10 08:13] LABS: POTASSIUM 3.8 mmol/L (3.6-5.2); SODIUM 138 mmol/L (132-148)
[2017-04-10 08:15] LABS: GFR AFRICAN-AMERICAN > 60
[2017-04-10 08:16] LABS: BLOOD UREA NITROGEN 10 mg/dL (9-20); CALCIUM 8.9 mg/dl (8.6-10.4); CARBON DIOXIDE 27 mmol/L (22-30); GLUCOSE,RANDOM 110 mg/dL (75-110)
--- NOTE | 2017-04-10 10:07 | CP.PCM.PN ---
Subjective - Date & Time of Evaluation Date of Evaluation: 04/10/17 Time of Evaluation: 07:00 - Subjective Subjective: SURGERY PROGRESS NOTE FOR DR. MANZANO Patient seen and examined at bedside. He states that he is feeling much better, his pain is well controlled with current pain regimen. He tolerated his soft food diet yesterday, but did not eat dinner because it was pork and did not want to become nauseous. Pt states he is using IS bedside and ambulated a few feet outside his room yesterday with PT's help. He no longer feels fatigued. He is passing gas per ostomy bag. Pt denies nausea and vomiting. Objective - Vital Signs/Intake and Output Vital Signs (last 24 hours): Temp Pulse Resp BP Pulse Ox 98.6 F 107 H 18 105/73 100 04/10/17 08:13 04/10/17 08:13 04/10/17 08:13 04/10/17 08:13 04/10/17 08:13 Intake and Output: 04/10/17 04/10/17 06:59 18:59 Intake Total 490 Output Total 955 Balance -465 - Medications Medications: Current Medications Al Hydrox/Mg Hydrox/Simethicone (Maalox 30 Ml) 15 ml PO TID PRN PRN Reason: Indigestion / Heartburn Last Admin: 04/09/17 16:34 Dose: 15 ml Alprazolam (Xanax) 0.[address] [facility] Last Admin: 04/09/17 21:30 Dose: 0.5 mg Enoxaparin Sodium (Lovenox) [address] [facility] Last Admin: 04/09/17 22:31 Dose: 70 mg Guaifenesin (Mucinex La) [address] [facility] Last Admin: 04/09/17 18:30 Dose: 600 mg Home Med (Patient's Own Inhalation Solution) [address] [facility] Last Admin: 04/10/17 07:23 Dose: 1 ml Insulin Glargine (Lantus) [address] [facility] Last Admin: 03/26/17 22:06 Dose: Not Given Insulin Human Regular (Novolin R) [address] [facility] PRN Reason: Protocol Last Admin: 04/10/17 07:19 Dose: Not Given Metformin HCl (Glucophage) 1,[address] [facility] Last Admin: 04/09/17 18:30 Dose: 1,000 mg Methylprednisolone (Solu-Medrol) [address] [facility] Last Admin: 04/09/17 09:54 Dose: 40 mg Montelukast Sodium (Singulair) [address] [facility] Last Admin: 04/09/17 22:40 Dose: 10 mg Morphine Sulfate (Morphine) 2 mg IVP Q4H PRN PRN Reason: Pain, severe (8-10) Last Admin: 04/09/17 08:35 Dose: 2 mg Ondansetron HCl (Zofran Inj) 4 mg IVP Q4 PRN PRN Reason: Nausea/Vomiting Last Admin: 04/09/17 22:31 Dose: 4 mg Oxycodone HCl (Oxycodone Immediate Release Tab) 5 mg PO Q6 PRN PRN Reason: Pain, moderate (4-7) Last Admin: 04/09/17 19:15 Dose: 5 mg Pantoprazole Sodium (Protonix Inj) [address] [facility] Last Admin: 04/09/17 09:54 Dose: 40 mg Polyethylene Glycol (Miralax) [address] [facility] Last Admin: 03/25/17 09:25 Dose: 17 gm Pregabalin (Lyrica) [address] [facility] Last Admin: 04/09/17 18:30 Dose: 50 mg Roflumilast (Daliresp) [address] [facility] Last Admin: 04/09/17 10:00 Dose: Not Given Vitamin B Complex/Vitamin C (Berocca) [address] [facility] Last Admin: 04/09/17 09:55 Dose: 1 tab - Labs Labs: 04/10/17 07:53 04/10/17 07:53 PT 11.7 SECONDS (9.7-12.2) 03/27/17 07:00 INR 1.0 03/27/17 07:00 APTT 27 SECONDS (21-34) 03/27/17 07:00 - Constitutional Appears: Non-toxic, No Acute Distress - Head Exam Head Exam: ATRAUMATIC, NORMAL INSPECTION - Eye Exam Eye Exam: EOMI - ENT Exam ENT Exam: Mucous Membranes Moist - Respiratory Exam Respiratory Exam: NORMAL BREATHING PATTERN. absent: Respiratory Distress - Cardiovascular Exam Cardiovascular Exam: +S1, +S2 - GI/Abdominal Exam GI & Abdominal Exam: Soft, Normal Bowel Sounds. 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 Emilia Steven PGY - 3
[2017-04-10] MEDS: MethylPREDNISolone 40 mg Vial IVP SCH (10:31)
[2017-04-10] MEDS: Aluminum Hydroxide/Magnesium Hydroxide Susp (30 mL) PO PRN (10:31)
[2017-04-10] MEDS: Vitamin B Complex/Vitamin C Tab PO SCH (10:32)
[2017-04-10] MEDS: Enoxaparin 80 mg Syringe SC SCH ×2 (10:33→21:53)
[2017-04-10] MEDS: guaiFENesin 600 mg ER Tab PO SCH ×2 (10:34→17:59)
[2017-04-10] MEDS: oxyCODONE 5 mg Immediate Release Tab PO PRN ×2 (10:53→17:45)
--- NOTE | 2017-04-10 19:29 | PN ---
DATE: SUBJECTIVE: The patient denies chest pain. He complains of right lower quadrant abdominal pain. PHYSICAL EXAMINATION VITAL SIGNS: Blood pressure 105/73, heart rate 107, temperature 98.6, and respirations 18. HEENT: Pale conjunctiva. CHEST: Bilateral rhonchi. HEART: S1 and S2, regular. ABDOMEN: Diminished bowel sounds. EXTREMITIES: No edema. LABORATORY DATA: Hemoglobin and hematocrit 10.7 and 34.7, white count 11.1, platelet count 470,000. SMA-7 is within normal limits except for chloride of 95 and creatinine of 0.5. ASSESSMENT: 1. Chronic obstructive lung disease. 2. Secondary pulmonary hypertension and cor pulmonale. 3. Ileus. 4. Anemia. 5. Uncontrolled diabetes. 6. Right popliteal and peroneal vein deep venous thrombosis. RECOMMENDATIONS: Continue therapeutic subcutaneous Lovenox at 70 mg twice a day, Solu-Medrol 40 mg intravenous once a day, Singulair 10 mg p.o. at bedtime, Protonix 40 mg intravenous once a day, alprazolam 0.5 mg p.o. q. 12 hours, Zofran 4 mg intravenously q. 4 hours p.r.n. Mukesh Correia MD
[2017-04-11] MEDS: (Novolin R) Insulin Human Regular 100 units/ml vial SC SCH ×4 (00:50→17:43)
--- NOTE | 2017-04-11 08:32 | CP.PCM.PN ---
Subjective - Date & Time of Evaluation Date of Evaluation: 04/11/17 Time of Evaluation: 06:40 - Subjective Subjective: SURGERY PROGRESS NOTE FOR DR. MANZANO Patient seen and examined bedside. Pt states that he has been feeling pain that comes and goes around his incision site, which he rates as an 8/10. Pt states it started yesterday after eating and therefore did not try eating anything else for the rest of the day to avoid more pain. Patient tolerated soft diet well. Pt denies N/V. Pt ambulated around nurse's station 3 times yesterday with PT's help. Passing gas per ostomy bag. IS used bedside. Surgical drain removed. Objective - Vital Signs/Intake and Output Vital Signs (last 24 hours): Temp Pulse Resp BP Pulse Ox 98.3 F 103 H 20 104/68 95 04/10/17 23:12 04/11/17 07:58 04/10/17 23:12 04/10/17 23:12 04/10/17 23:12 Intake and Output: 04/11/17 04/11/17 06:59 18:59 Intake Total 250 Output Total 805 Balance -555 - Medications Medications: Current Medications Al Hydrox/Mg Hydrox/Simethicone (Maalox 30 Ml) 15 ml PO TID PRN PRN Reason: Indigestion / Heartburn Last Admin: 04/10/17 10:31 Dose: 15 ml Alprazolam (Xanax) 0.5 mg PO Q12H [facility] Last Admin: 04/10/17 20:58 Dose: 0.5 mg Enoxaparin Sodium (Lovenox) 70 mg SC Q12 [facility] Last Admin: 04/10/17 21:53 Dose: 70 mg Guaifenesin (Mucinex La) 600 mg PO BID [facility] Last Admin: 04/10/17 17:59 Dose: 600 mg Home Med (Patient's Own Inhalation Solution) 1 ml INH RBID [facility] Last Admin: 04/10/17 19:52 Dose: 1 ml Insulin Glargine (Lantus) 16 unit SC HS [facility] Last Admin: 03/26/17 22:06 Dose: Not Given Insulin Human Regular (Novolin R) 0 unit SC Q6H [facility] PRN Reason: Protocol Last Admin: 04/11/17 06:49 Dose: Not Given Metformin HCl (Glucophage) 1,000 mg PO BID [facility] Last Admin: 04/10/17 19:00 Dose: Not Given Methylprednisolone (Solu-Medrol) 40 mg IVP DAILY [facility] Last Admin: 04/10/17 10:31 Dose: 40 mg Montelukast Sodium (Singulair) 10 mg PO HS [facility] Last Admin: 04/10/17 21:53 Dose: 10 mg Morphine Sulfate (Morphine) 2 mg IVP Q4H PRN PRN Reason: Pain, severe (8-10) Last Admin: 04/09/17 08:35 Dose: 2 mg Ondansetron HCl (Zofran Inj) 4 mg IVP Q4 PRN PRN Reason: Nausea/Vomiting Last Admin: 04/10/17 17:51 Dose: 4 mg Oxycodone HCl (Oxycodone Immediate Release Tab) 5 mg PO Q6 PRN PRN Reason: Pain, moderate (4-7) Last Admin: 04/10/17 17:45 Dose: 5 mg Pantoprazole Sodium (Protonix Inj) 40 mg IVP DAILY [facility] Last Admin: 04/10/17 10:31 Dose: 40 mg Polyethylene Glycol (Miralax) 17 gm PO DAILY [facility] Last Admin: 03/25/17 09:25 Dose: 17 gm Pregabalin (Lyrica) 50 mg PO BID [facility] Last Admin: 04/10/17 18:01 Dose: 50 mg Roflumilast (Daliresp) 500 mcg PO DAILY [facility] Last Admin: 04/10/17 10:32 Dose: 500 mcg Vitamin B Complex/Vitamin C (Berocca) 1 tab PO DAILY [facility] Last Admin: 04/10/17 10:32 Dose: 1 tab - Labs Labs: 04/10/17 07:53 04/10/17 07:53 PT 11.7 SECONDS (9.7-12.2) 03/27/17 07:00 INR 1.0 03/27/17 07:00 APTT 27 SECONDS (21-34) 03/27/17 07:00 - Constitutional Appears: Non-toxic, No Acute Distress - Head Exam Head Exam: ATRAUMATIC, NORMAL INSPECTION - Eye Exam Eye Exam: EOMI - ENT Exam ENT Exam: Mucous Membranes Moist - Respiratory Exam Respiratory Exam: NORMAL BREATHING PATTERN. absent: Respiratory Distress - Cardiovascular Exam Cardiovascular Exam: +S1, +S2 - GI/Abdominal Exam GI & Abdominal Exam: Soft, Normal Bowel Sounds. 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 Emilia Crespo PGY-2
[2017-04-11] MEDS: Vitamin B Complex/Vitamin C Tab PO SCH (09:35)
[2017-04-11] MEDS: guaiFENesin 600 mg ER Tab PO SCH ×2 (09:35→17:43)
[2017-04-11] MEDS: Enoxaparin 80 mg Syringe SC SCH ×2 (09:36→21:26)
[2017-04-11] MEDS: MethylPREDNISolone 40 mg Vial IVP SCH (09:36)
--- NOTE | 2017-04-11 17:43 | PN ---
SUBJECTIVE: The patient denies any chest pain. Suction was removed today. No shortness of breath, on nasal O2. PHYSICAL EXAMINATION VITAL SIGNS: Blood pressure 115/67, heart rate 98, temperature is 97.8, respirations 18. HEENT: Pale conjunctiva. CHEST: Bilateral rhonchi. HEART: S1 and S2 regular. EXTREMITIES: No edema. ASSESSMENT AND PLAN: 1. Chronic obstructive lung disease. 2. Secondary pulmonary hypertension and cor pulmonale. 3. Uncontrolled diabetes mellitus. 4. Right popliteal vein deep venous thrombosis. 5. Improving ileus. RECOMMENDATIONS: Continue Solu-Medrol 40 mg intravenous daily, Mucinex LA 600 mg twice a day, therapeutic subcutaneous Lovenox 70 mg twice a day. Consider initiating Coumadin therapy if there is no planned surgical intervention. Mukesh Correia MD
[2017-04-11] MEDS: Aluminum Hydroxide/Magnesium Hydroxide Susp (30 mL) PO PRN (18:55)
[2017-04-11] MEDS: Albuterol-Ipratrop 3 mg / 0.5 (3 ml) UD INH SCH (20:00)
[2017-04-11] MEDS: BROVANA 15 MCG/2 ML INH SCH (20:01)
--- NOTE | 2017-04-12 | CP.PCM.PN ---
Subjective - Date & Time of Evaluation Date of Evaluation: 04/10/17 - Subjective Subjective: FEELS R SIDED ABDOMINAL PAIN, LESS SOB, LESS CONGESTED, NO FEVER Objective - Vital Signs/Intake and Output Vital Signs (last 24 hours): Temp Pulse Resp BP Pulse Ox 98 F 113 H 20 109/78 98 04/11/17 15:49 04/11/17 15:49 04/11/17 15:49 04/11/17 15:49 04/11/17 15:49 Intake and Output: 04/11/17 04/12/17 18:59 06:59 Intake Total 300 240 Output Total 750 500 Balance -450 -260 - Medications Medications: Current Medications Al Hydrox/Mg Hydrox/Simethicone (Maalox 30 Ml) 15 ml PO TID PRN PRN Reason: Indigestion / Heartburn Last Admin: 04/11/17 18:55 Dose: 15 ml Albuterol/Ipratropium (Duoneb 3 Mg/0.5 Mg (3 Ml) Ud) 3 ml INH RQ6 [facility] Last Admin: 04/11/17 20:00 Dose: 3 ml Alprazolam (Xanax) 0.5 mg PO Q12H [facility] Last Admin: 04/11/17 21:26 Dose: 0.5 mg Enoxaparin Sodium (Lovenox) 70 mg SC Q12 [facility] Last Admin: 04/11/17 21:26 Dose: 70 mg Guaifenesin (Mucinex La) 600 mg PO BID [facility] Last Admin: 04/11/17 17:43 Dose: 600 mg Home Med (Patient's Own Inhalation Solution) 1 ml INH RBID [facility] Last Admin: 04/11/17 20:01 Dose: 1 ml Insulin Glargine (Lantus) 16 unit SC [facility] Last Admin: 03/26/17 22:06 Dose: Not Given Insulin Human Regular (Novolin R) 0 unit SC Q6H [facility] PRN Reason: Protocol Last Admin: 04/11/17 17:43 Dose: 1 unit Metformin HCl (Glucophage) 1,000 mg PO BID [facility] Last Admin: 04/11/17 17:43 Dose: 1,000 mg Methylprednisolone (Solu-Medrol) 40 mg IVP DAILY [facility] Last Admin: 04/11/17 09:36 Dose: 40 mg Montelukast Sodium (Singulair) 10 mg PO [facility] Last Admin: 04/11/17 21:26 Dose: 10 mg Morphine Sulfate (Morphine) 2 mg IVP Q4H PRN PRN Reason: Pain, severe (8-10) Last Admin: 04/11/17 23:05 Dose: 2 mg Ondansetron HCl (Zofran Inj) 4 mg IVP Q4 PRN PRN Reason: Nausea/Vomiting Last Admin: 04/10/17 17:51 Dose: 4 mg Oxycodone HCl (Oxycodone Immediate Release Tab) 5 mg PO Q6 PRN PRN Reason: Pain, moderate (4-7) Last Admin: 04/10/17 17:45 Dose: 5 mg Pantoprazole Sodium (Protonix Inj) 40 mg IVP DAILY [facility] Last Admin: 04/11/17 09:35 Dose: 40 mg Polyethylene Glycol (Miralax) 17 gm PO DAILY [facility] Last Admin: 03/25/17 09:25 Dose: 17 gm Pregabalin (Lyrica) 50 mg PO BID [facility] Last Admin: 04/11/17 17:43 Dose: 50 mg Roflumilast (Daliresp) 500 mcg PO DAILY [facility] Last Admin: 04/11/17 09:37 Dose: 500 mcg Vitamin B Complex/Vitamin C (Berocca) 1 tab PO DAILY [facility] Last Admin: 04/11/17 09:35 Dose: 1 tab - Labs Labs: 04/10/17 07:53 04/10/17 07:53 PT 11.7 SECONDS (9.7-12.2) 03/27/17 07:00 INR 1.0 03/27/17 07:00 APTT 27 SECONDS (21-34) 03/27/17 07:00 - Constitutional Appears: Non-toxic, No Acute Distress, Chronically Ill - Head Exam Head Exam: ATRAUMATIC, NORMAL INSPECTION, NORMOCEPHALIC - Eye Exam Eye Exam: EOMI, Normal appearance, PERRL Pupil Exam: NORMAL ACCOMODATION - Neck Exam Neck Exam: Normal Inspection - Respiratory Exam Respiratory Exam: Decreased Breath Sounds, Rhonchi, Wheezes - Cardiovascular Exam Cardiovascular Exam: Tachycardia, REGULAR RHYTHM, +S1, +S2 - GI/Abdominal Exam GI & Abdominal Exam: Soft (POST OP), Normal Bowel Sounds - Rectal Exam Rectal Exam: NORMAL INSPECTION - Extremities Exam Extremities Exam: Full ROM, Normal Capillary Refill - Neurological Exam Neurological Exam: Awake, CN II-XII Intact, Normal Gait, Oriented x3 - Psychiatric Exam Psychiatric exam: Anxious - Skin Skin Exam: Intact Assessment and Plan (1) Anemia Status: Chronic (2) COPD (chronic obstructive pulmonary disease) with emphysema Status: Acute (3) Allergic rhinitis Status: Chronic (4) Diabetes Status: Chronic
--- NOTE | 2017-04-12 00:02 | CP.PCM.PN ---
Subjective - Date & Time of Evaluation Date of Evaluation: 04/11/17 - Subjective Subjective: OCC R SIDED ABDOMINAL PAIN, NO FEVER, CHEST CONGESTION, NO NAUSEA, R SIDED ABDOMINAL PAIN Objective - Vital Signs/Intake and Output Vital Signs (last 24 hours): Temp Pulse Resp BP Pulse Ox 98 F 113 H 20 109/78 98 04/11/17 15:49 04/11/17 15:49 04/11/17 15:49 04/11/17 15:49 04/11/17 15:49 Intake and Output: 04/11/17 04/12/17 18:59 06:59 Intake Total 300 240 Output Total 750 500 Balance -450 -260 - Medications Medications: Current Medications Al Hydrox/Mg Hydrox/Simethicone (Maalox 30 Ml) 15 ml PO TID PRN PRN Reason: Indigestion / Heartburn Last Admin: 04/11/17 18:55 Dose: 15 ml Albuterol/Ipratropium (Duoneb 3 Mg/0.5 Mg (3 Ml) Ud) 3 ml INH RQ6 [facility] Last Admin: 04/11/17 20:00 Dose: 3 ml Alprazolam (Xanax) 0.5 mg PO Q12H [facility] Last Admin: 04/11/17 21:26 Dose: 0.5 mg Enoxaparin Sodium (Lovenox) 70 mg SC Q12 [facility] Last Admin: 04/11/17 21:26 Dose: 70 mg Guaifenesin (Mucinex La) 600 mg PO BID [facility] Last Admin: 04/11/17 17:43 Dose: 600 mg Home Med (Patient's Own Inhalation Solution) 1 ml INH RBID [facility] Last Admin: 04/11/17 20:01 Dose: 1 ml Insulin Glargine (Lantus) 16 unit SC [facility] Last Admin: 03/26/17 22:06 Dose: Not Given Insulin Human Regular (Novolin R) 0 unit SC Q6H [facility] PRN Reason: Protocol Last Admin: 04/11/17 17:43 Dose: 1 unit Metformin HCl (Glucophage) 1,000 mg PO BID [facility] Last Admin: 04/11/17 17:43 Dose: 1,000 mg Methylprednisolone (Solu-Medrol) 40 mg IVP DAILY [facility] Last Admin: 04/11/17 09:36 Dose: 40 mg Montelukast Sodium (Singulair) 10 mg PO [facility] Last Admin: 04/11/17 21:26 Dose: 10 mg Morphine Sulfate (Morphine) 2 mg IVP Q4H PRN PRN Reason: Pain, severe (8-10) Last Admin: 04/11/17 23:05 Dose: 2 mg Ondansetron HCl (Zofran Inj) 4 mg IVP Q4 PRN PRN Reason: Nausea/Vomiting Last Admin: 04/10/17 17:51 Dose: 4 mg Oxycodone HCl (Oxycodone Immediate Release Tab) 5 mg PO Q6 PRN PRN Reason: Pain, moderate (4-7) Last Admin: 04/10/17 17:45 Dose: 5 mg Pantoprazole Sodium (Protonix Inj) 40 mg IVP DAILY [facility] Last Admin: 04/11/17 09:35 Dose: 40 mg Polyethylene Glycol (Miralax) 17 gm PO DAILY [facility] Last Admin: 03/25/17 09:25 Dose: 17 gm Pregabalin (Lyrica) 50 mg PO BID [facility] Last Admin: 04/11/17 17:43 Dose: 50 mg Roflumilast (Daliresp) 500 mcg PO DAILY [facility] Last Admin: 04/11/17 09:37 Dose: 500 mcg Vitamin B Complex/Vitamin C (Berocca) 1 tab PO DAILY [facility] Last Admin: 04/11/17 09:35 Dose: 1 tab - Labs Labs: 04/10/17 07:53 04/10/17 07:53 PT 11.7 SECONDS (9.7-12.2) 03/27/17 07:00 INR 1.0 03/27/17 07:00 APTT 27 SECONDS (21-34) 03/27/17 07:00 - Constitutional Appears: Non-toxic, No Acute Distress, Chronically Ill - Head Exam Head Exam: ATRAUMATIC, NORMAL INSPECTION, NORMOCEPHALIC - Eye Exam Eye Exam: EOMI, Normal appearance, PERRL Pupil Exam: NORMAL ACCOMODATION - Neck Exam Neck Exam: Normal Inspection - Respiratory Exam Respiratory Exam: Decreased Breath Sounds, Prolonged Expiratory Phase, Rhonchi - Cardiovascular Exam Cardiovascular Exam: Tachycardia, REGULAR RHYTHM, +S1, +S2 - GI/Abdominal Exam GI & Abdominal Exam: Normal Bowel Sounds (POST OP) - Rectal Exam Rectal Exam: NORMAL INSPECTION - Extremities Exam Extremities Exam: Normal Capillary Refill - Neurological Exam Neurological Exam: Alert, Awake, CN II-XII Intact, Normal Gait, Oriented x3 Assessment and Plan (1) Anemia Status: Chronic (2) COPD (chronic obstructive pulmonary disease) with emphysema Status: Acute (3) Allergic rhinitis Status: Chronic (4) Diabetes Status: Chronic
[2017-04-12] MEDS: (Novolin R) Insulin Human Regular 100 units/ml vial SC SCH ×4 (00:20→18:50)
[2017-04-12] MEDS: Albuterol-Ipratrop 3 mg / 0.5 (3 ml) UD INH SCH ×4 (01:04→19:25)
[2017-04-12] MEDS: BROVANA 15 MCG/2 ML INH SCH ×2 (07:37→19:28)
[2017-04-12 07:55] LABS: BASO # 0.1 K/uL (0.0-0.2); BASO % 0.7 % (0.0-2.0); EOS # 0.1 K/uL (0.0-0.7); EOS % 1.2 % (0.0-4.0); HEMATOCRIT 32.2 % (35.0-51.0); LYMPH # 1.6 K/uL (1.0-4.3); MEAN CELL VOLUME 68.9 fL (80.0-94.0); MEAN CORPUSCULAR HEMOGLOBIN 21.8 pg (27.0-31.0); MEAN CORPUSCULAR HGB CONC 31.7 g/dL (33.0-37.0); MONO # 0.6 K/uL (0.0-0.8); MONO % 7.7 % (0.0-10.0); NRBC % 0.1 % (0.0-2.0); RED CELL DISTRIBUTION WIDTH 31.2 % (11.5-14.5); WHITE BLOOD COUNT 8.4 K/uL (4.8-10.8)
[2017-04-12 08:11] LABS: CHLORIDE 93 mmol/L (98-107)
[2017-04-12 08:12] LABS: POTASSIUM 3.8 mmol/L (3.6-5.2); SODIUM 137 mmol/L (132-148)
[2017-04-12 08:14] LABS: GFR AFRICAN-AMERICAN > 60
[2017-04-12 08:15] LABS: BLOOD UREA NITROGEN 8 mg/dL (9-20); CALCIUM 8.9 mg/dl (8.6-10.4); CARBON DIOXIDE 30 mmol/L (22-30); GLUCOSE,RANDOM 98 mg/dL (75-110)
[2017-04-12 08:38] VITALS: O2SAT 100
[2017-04-12] MEDS: Enoxaparin 80 mg Syringe SC SCH (09:10)
[2017-04-12] MEDS: Vitamin B Complex/Vitamin C Tab PO SCH (09:11)
[2017-04-12] MEDS: guaiFENesin 600 mg ER Tab PO SCH ×2 (09:11→17:27)
[2017-04-12] MEDS: MethylPREDNISolone 40 mg Vial IVP SCH (09:12)
[2017-04-12] MEDS: Aluminum Hydroxide/Magnesium Hydroxide Susp (30 mL) PO PRN (09:16)
--- NOTE | 2017-04-12 11:27 | CP.PCM.PN ---
Subjective - Date & Time of Evaluation Date of Evaluation: 04/12/17 Time of Evaluation: 11:34 - Subjective Subjective: SURGERY NOTE FOR DR. MANZANO 67M seen and examined at bedside. Patient states pain is control, denies nausea , vomiting. Objective - Vital Signs/Intake and Output Vital Signs (last 24 hours): Temp Pulse Resp BP Pulse Ox 98.3 F 93 H 18 114/72 100 04/12/17 08:36 04/12/17 08:36 04/12/17 08:36 04/12/17 08:36 04/12/17 08:36 Intake and Output: 04/12/17 04/12/17 06:59 18:59 Intake Total 240 120 Output Total 700 500 Balance -460 -380 - Medications Medications: Current Medications Al Hydrox/Mg Hydrox/Simethicone (Maalox 30 Ml) 15 ml PO TID PRN PRN Reason: Indigestion / Heartburn Last Admin: 04/12/17 09:16 Dose: 15 ml Albuterol/Ipratropium (Duoneb 3 Mg/0.5 Mg (3 Ml) Ud) 3 ml INH RQ6 [facility] Last Admin: 04/12/17 07:36 Dose: 3 ml Alprazolam (Xanax) 0.5 mg PO Q12H [facility] Last Admin: 04/12/17 09:11 Dose: 0.5 mg Enoxaparin Sodium (Lovenox) 70 mg SC Q12 [facility] Last Admin: 04/12/17 09:10 Dose: 70 mg Guaifenesin (Mucinex La) 600 mg PO BID [facility] Last Admin: 04/12/17 09:11 Dose: 600 mg Home Med (Patient's Own Inhalation Solution) 1 ml INH RBID [facility] Last Admin: 04/12/17 07:37 Dose: 1 ml Insulin Glargine (Lantus) 16 unit SC HS [facility] Last Admin: 03/26/17 22:06 Dose: Not Given Insulin Human Regular (Novolin R) 0 unit SC Q6H [facility] PRN Reason: Protocol Last Admin: 04/12/17 06:40 Dose: Not Given Metformin HCl (Glucophage) 1,000 mg PO BID [facility] Last Admin: 04/12/17 09:13 Dose: Not Given Methylprednisolone (Solu-Medrol) 40 mg IVP DAILY [facility] Last Admin: 04/12/17 09:12 Dose: 40 mg Montelukast Sodium (Singulair) 10 mg PO HS [facility] Last Admin: 04/11/17 21:26 Dose: 10 mg Morphine Sulfate (Morphine) 2 mg IVP Q4H PRN PRN Reason: Pain, severe (8-10) Last Admin: 04/11/17 23:05 Dose: 2 mg Ondansetron HCl (Zofran Inj) 4 mg IVP Q4 PRN PRN Reason: Nausea/Vomiting Last Admin: 04/10/17 17:51 Dose: 4 mg Oxycodone HCl (Oxycodone Immediate Release Tab) 5 mg PO Q6 PRN PRN Reason: Pain, moderate (4-7) Last Admin: 04/10/17 17:45 Dose: 5 mg Pantoprazole Sodium (Protonix Inj) 40 mg IVP DAILY [facility] Last Admin: 04/12/17 09:11 Dose: 40 mg Polyethylene Glycol (Miralax) 17 gm PO DAILY [facility] Last Admin: 03/25/17 09:25 Dose: 17 gm Pregabalin (Lyrica) 50 mg PO BID [facility] Last Admin: 04/12/17 09:11 Dose: 50 mg Roflumilast (Daliresp) 500 mcg PO DAILY [facility] Last Admin: 04/12/17 09:10 Dose: 500 mcg Vitamin B Complex/Vitamin C (Berocca) 1 tab PO DAILY [facility] Last Admin: 04/12/17 09:11 Dose: 1 tab - Labs Labs: 04/12/17 07:36 04/12/17 07:36 PT 11.7 SECONDS (9.7-12.2) 03/27/17 07:00 INR 1.0 03/27/17 07:00 APTT 27 SECONDS (21-34) 03/27/17 07:00 - Constitutional Appears: Non-toxic, No Acute Distress - Respiratory Exam Respiratory Exam: Clear to Ausculation Bilateral, NORMAL BREATHING PATTERN - Cardiovascular Exam Cardiovascular Exam: REGULAR RHYTHM, +S1, +S2 - GI/Abdominal Exam GI & Abdominal Exam: Soft. absent: Distended, Firm, Guarding, Rigid, Tenderness , Rebound Additional comments: ostomy patent, retention sutures in place Assessment and Plan - Assessment and Plan (Free Text) Assessment: 67M s/p LAR, loop ileostomy POD16 - Patient clear for DC - River to be removed in the office follow up Further recs discuss with Dr. Emilia Harding, PGY2
[2017-04-12 12:04] LABS: INR 1.1
[2017-04-12] MEDS: oxyCODONE 5 mg Immediate Release Tab PO PRN ×2 (12:44→18:53)
--- NOTE | 2017-04-12 15:25 | CP.PCM.PN ---
Subjective - Date & Time of Evaluation Date of Evaluation: 04/12/17 Time of Evaluation: 12:00 - Subjective Subjective: Patient seen and examined today , denies any chest pain, sob, palpitations, N/V/ , tolerating diet , a febrile ileostomy R side functioning well. Objective - Vital Signs/Intake and Output Vital Signs (last 24 hours): Temp Pulse Resp BP Pulse Ox 98.3 F 93 H 18 114/72 100 04/12/17 08:36 04/12/17 08:36 04/12/17 08:36 04/12/17 08:36 04/12/17 08:36 Intake and Output: 04/12/17 04/12/17 06:59 18:59 Intake Total 240 120 Output Total 700 500 Balance -460 -380 - Medications Medications: Current Medications Al Hydrox/Mg Hydrox/Simethicone (Maalox 30 Ml) 15 ml PO TID PRN PRN Reason: Indigestion / Heartburn Last Admin: 04/12/17 09:16 Dose: 15 ml Albuterol/Ipratropium (Duoneb 3 Mg/0.5 Mg (3 Ml) Ud) 3 ml INH RQ6 [facility] Last Admin: 04/12/17 13:38 Dose: 3 ml Alprazolam (Xanax) 0.5 mg PO Q12H [facility] Last Admin: 04/12/17 09:11 Dose: 0.5 mg Enoxaparin Sodium (Lovenox) 70 mg SC Q12 [facility] Last Admin: 04/12/17 09:10 Dose: 70 mg Guaifenesin (Mucinex La) 600 mg PO BID [facility] Last Admin: 04/12/17 09:11 Dose: 600 mg Home Med (Patient's Own Inhalation Solution) 1 ml INH RBID [facility] Last Admin: 04/12/17 07:37 Dose: 1 ml Insulin Glargine (Lantus) 16 unit SC HS [facility] Last Admin: 03/26/17 22:06 Dose: Not Given Insulin Human Regular (Novolin R) 0 unit SC Q6H [facility] PRN Reason: Protocol Last Admin: 04/12/17 12:43 Dose: 1 unit Metformin HCl (Glucophage) 1,000 mg PO BID [facility] Last Admin: 04/12/17 09:13 Dose: Not Given Methylprednisolone (Solu-Medrol) 40 mg IVP DAILY [facility] Last Admin: 04/12/17 09:12 Dose: 40 mg Montelukast Sodium (Singulair) 10 mg PO HS [facility] Last Admin: 04/11/17 21:26 Dose: 10 mg Morphine Sulfate (Morphine) 2 mg IVP Q4H PRN PRN Reason: Pain, severe (8-10) Last Admin: 04/11/17 23:05 Dose: 2 mg Ondansetron HCl (Zofran Inj) 4 mg IVP Q4 PRN PRN Reason: Nausea/Vomiting Last Admin: 04/10/17 17:51 Dose: 4 mg Oxycodone HCl (Oxycodone Immediate Release Tab) 5 mg PO Q6 PRN PRN Reason: Pain, moderate (4-7) Last Admin: 04/12/17 12:44 Dose: 5 mg Pantoprazole Sodium (Protonix Inj) 40 mg IVP DAILY [facility] Last Admin: 04/12/17 09:11 Dose: 40 mg Polyethylene Glycol (Miralax) 17 gm PO DAILY [facility] Last Admin: 03/25/17 09:25 Dose: 17 gm Pregabalin (Lyrica) 50 mg PO BID [facility] Last Admin: 04/12/17 09:11 Dose: 50 mg Roflumilast (Daliresp) 500 mcg PO DAILY [facility] Last Admin: 04/12/17 09:10 Dose: 500 mcg Vitamin B Complex/Vitamin C (Berocca) 1 tab PO DAILY [facility] Last Admin: 04/12/17 09:11 Dose: 1 tab Warfarin Sodium (Coumadin) 7.5 mg PO 1800 [facility] Stop: 04/12/17 18:01 - Labs Labs: 04/12/17 07:36 04/12/17 07:36 PT 12.8 SECONDS (9.7-12.2) H 04/12/17 11:39 INR 1.1 04/12/17 11:39 APTT 36 SECONDS (21-34) H 04/12/17 11:39 - Constitutional Appears: Well, No Acute Distress - ENT Exam ENT Exam: Mucous Membranes Moist - Respiratory Exam Respiratory Exam: Decreased Breath Sounds, NORMAL BREATHING PATTERN - Cardiovascular Exam Cardiovascular Exam: +S1, +S2 - GI/Abdominal Exam GI & Abdominal Exam: Soft, Tenderness (Mid abdomen / Ileosatomy r lamonte e/ sutues present surgical site ) - Neurological Exam Neurological Exam: Alert, Awake, Oriented x3 Assessment and Plan - Assessment and Plan (Free Text) Assessment: 67 yr old male with PMHX of COPD anemia admitted for exc. copd / anemia s/p PRBC transfusion s/p egd/ colonoscopy with multiple polyps s/p LAR, loop ileostomy POD #16 , pt tolerating diet without N/V and abdominal pain controlled with pain medication + DVT-, LE as per Dr. Mai anticoagulation no plan for IVC filter . Patient on Lovenox, q12 we will bridge with coumadin and repeat INR on sat at [facility] seen by Surgery today, cleared from surgery stand point for discharge to [facility] today and f/u with Dr. Mai office in 14 day s to remove sutures patient accepted at [facility] for rehab seen by Dr. Garcia, today , cleared for discharge to [facility] today and Dr. Garcia will follow the patient at [facility] as per STEVEN , pateint will have BIPAP for use at
[2017-04-12 15:35] VITALS: BP 123/80; PULSE 122; RESP 20; TEMP 97.7
--- NOTE | 2017-04-12 19:38 | PN ---
SUBJECTIVE: The patient is currently on BiPAP. He denied any retrosternal chest pain. PHYSICAL EXAMINATION: VITAL SIGNS: Blood pressure 115/72, heart rate 96, temperature 98.3, respirations 18. HEENT: Pale conjunctivae. CHEST: Bilateral rhonchi. HEART: S1 and S2, regular. EXTREMITIES: No edema. LABORATORY DATA: SMA-7 is within normal limits except for chloride of 93 and BUN and creatinine of 8 and 0.5 respectively. Hemoglobin and hematocrit 10.1 and 32.2. White count and platelet count are within normal limits. ASSESSMENT: 1. Chronic obstructive lung disease. 2. Secondary pulmonary hypertension and cor pulmonale. 3. Status post low anterior abdominal resection with ileostomy. RECOMMENDATIONS: Continue current albuterol inhaler and also subcutaneous Lovenox, IV Protonix and IV Solu-Medrol. I recommend starting oral anticoagulation such as Eliquis at 5 mg twice a day prior to transferring the patient to rehab and then discontinuing subcutaneous Lovenox. Mukesh Correia MD
[2017-04-12] MEDS ORDERED: oxyCODONE 5 mg Immediate Release Tab PO STA (19:49)
--- NOTE | 2017-04-12 22:23 | CP.PCM.DIS ---
Provider - Provider Date of Admission: 03/20/17 17:05 Attending physician: Hal Garcia MD Primary care physician: Hal Garcia MD Diagnosis - Discharge Diagnosis (1) Anemia Status: Chronic Priority: Medium (2) COPD (chronic obstructive pulmonary disease) with emphysema Status: Acute Priority: High (3) Allergic rhinitis Status: Chronic Priority: Medium (4) Diabetes Status: Chronic Priority: Medium Hospital Course - Lab Results Lab Results: Micro Results 03/30/17 15:20 Naris MRSA Culture - Final MRSA NOT DETECTED 03/27/17 18:10 Nose MRSA Culture (Admit) - Final MRSA NOT DETECTED Most Recent Lab Values WBC 8.4 K/uL (4.8-10.8) 04/12/17 07:36 RBC 4.68 Mil/uL (4.40-5.90) 04/12/17 07:36 Hgb 10.2 g/dL (12.0-18.0) L 04/12/17 07:36 Hct 32.2 % (35.0-51.0) L 04/12/17 07:36 MCV 68.9 fL (80.0-94.0) L 04/12/17 07:36 MCH 21.8 pg (27.0-31.0) L 04/12/17 07:36 MCHC 31.7 g/dL (33.0-37.0) L 04/12/17 07:36 RDW 31.2 % (11.5-14.5) H 04/12/17 07:36 Plt Count 377 K/uL (130-400) 04/12/17 07:36 MPV 9.0 fL (7.2-11.7) 04/12/17 07:36 Neut % (Auto) 71.4 % (50.0-75.0) 04/12/17 07:36 Lymph % (Auto) 19.0 % (20.0-40.0) L 04/12/17 07:36 [place] % (Auto) 7.7 % (0.0-10.0) 04/12/17 07:36 Eos % (Auto) 1.2 % (0.0-4.0) 04/12/17 07:36 Baso % (Auto) 0.7 % (0.0-2.0) 04/12/17 07:36 Neut # 6.0 K/uL (1.8-7.0) 04/12/17 07:36 Lymph # 1.6 K/uL (1.0-4.3) 04/12/17 07:36 [place] # 0.6 K/uL (0.0-0.8) 04/12/17 07:36 Eos # 0.1 K/uL (0.0-0.7) 04/12/17 07:36 Baso # 0.1 K/uL (0.0-0.2) 04/12/17 07:36 Neutrophils % (Manual) 89 % (50-75) H 04/04/17 06:54 Band Neutrophils % 7 % (0-2) H 03/29/17 06:27 Lymphocytes % (Manual) 8 % (20-40) L 04/04/17 06:54 Monocytes % (Manual) 2 % (0-10) 04/04/17 06:54 Eosinophils % (Manual) 1 % (0-4) 04/04/17 06:54 Metamyelocytes % 1 % (0-0) H 03/28/17 06:40 Toxic Granulation Present 03/30/17 06:16 Platelet Estimate Normal (NORMAL) 04/04/17 06:54 Polychromasia Slight 04/04/17 06:54 Hypochromasia (manual) Slight 04/04/17 06:54 Poikilocytosis (manual Slight 03/30/17 06:16 Basophilic Stippling Slight 03/30/17 06:16 Anisocytosis (manual) Marked 04/04/17 06:54 Microcytosis (manual) Slight 04/04/17 06:54 Macrocytosis (manual) Slight 03/30/17 06:16 Target Cells Slight 03/30/17 06:16 Tear Drop Cells Slight 03/30/17 06:16 Ovalocytes Moderate 04/04/17 06:54 [place] Cells Slight 03/30/17 06:16 Schistocytes Slight 04/04/17 06:54 Haptoglobin 202 mg/dL (43-212) 03/22/17 07:12 PT 12.8 SECONDS (9.7-12.2) H 04/12/17 11:39 INR 1.1 04/12/17 11:39 APTT 36 SECONDS (21-34) H 04/12/17 11:39 Puncture Site Jessica 03/28/17 05:06 pCO2 52 mm/Hg (35-45) H 03/28/17 05:06 pO2 125 mm/Hg (80-100) H 03/28/17 05:06 HCO3 30.0 mmol/L (21-28) H 03/28/17 05:06 ABG pH 7.40 (7.35-7.45) 03/28/17 05:06 ABG Total CO2 33.8 mmol/L (22-28) H 03/28/17 05:06 ABG O2 Saturation 95.9 % (95-98) 03/28/17 05:06 ABG Base Excess 6.5 mmol/L (-2.0-3.0) H 03/28/17 05:06 ABG Hemoglobin 8.9 g/dL (11.7-17.4) L 03/28/17 05:06 ABG Carboxyhemoglobin 0.1 % (0.5-1.5) L 03/28/17 05:06 POC ABG HHb (Measured) 4.1 % (0.0-5.0) 03/28/17 05:06 ABG Methemoglobin 0.0 % (0.0-3.0) 03/28/17 05:06 Jesus Test Na 03/28/17 05:06 A-a O2 Difference 114.0 mm/Hg 03/27/17 10:09 Respiratory Index 1.3 03/27/17 10:09 Hgb O2 Saturation 95.8 % (95.0-98.0) 03/28/17 05:06 Liter Flow 6.0 03/28/17 05:06 FiO2 36.0 % 03/27/17 10:09 Sodium 137 mmol/L (132-148) 04/12/17 07:36 Potassium 3.8 mmol/L (3.6-5.2) 04/12/17 07:36 Chloride 93 mmol/L (98-107) L 04/12/17 07:36 Carbon Dioxide 30 mmol/L (22-30) 04/12/17 07:36 Anion Gap 17 (10-20) 04/12/17 07:36 BUN 8 mg/dL (9-20) L 04/12/17 07:36 Creatinine 0.5 MG/DL (0.8-1.5) L 04/12/17 07:36 Est GFR ( Amer) > 60 04/12/17 07:36 Est GFR (Non-Af Amer) > 60 04/12/17 07:36 POC Glucose (mg/dL) 93 mg/dL (65-110) 04/12/17 21:23 Random Glucose 98 mg/dL (75-110) 04/12/17 07:36 Calcium 8.9 mg/dl (8.6-10.4) 04/12/17 07:36 Phosphorus 3.0 mg/dL (2.5-4.5) 03/30/17 06:16 Magnesium 2.1 mg/dL (1.6-2.3) 03/30/17 06:16 Iron 10 ug/dL (49-181) L 03/19/17 13:44 TIBC 386 ug/dL (250-450) 03/19/17 13:44 % Saturation 3 (20-55) L 03/19/17 13:44 Total Bilirubin 0.4 mg/dL (0.2-1.3) 03/30/17 06:16 AST 26 U/L (17-59) 03/30/17 06:16 ALT 54 U/L (21-72) 03/30/17 06:16 Alkaline Phosphatase 70 U/L (38-126) 03/30/17 06:16 Total Creatine Kinase 45 U/L (55-170) L 03/19/17 12:00 CK-MB (Mass) 1.71 ng/mL (0.0-3.38) 03/19/17 12:00 Troponin I < 0.0120 ng/mL (0.00-0.120) 03/19/17 00:40 Troponin I, Quant < 0.0120 ng/mL (0.00-0.120) 03/19/17 12:00 NT-Pro-B Natriuret Pep 52.9 pg/mL (0-900) 03/19/17 00:40 Total Protein 5.4 g/dL (6.3-8.3) L 03/30/17 06:16 Albumin 3.0 g/dL (3.5-5.0) L 03/30/17 06:16 Globulin 2.4 gm/dL (2.2-3.9) 03/30/17 06:16 Albumin/Globulin Ratio 1.3 (1.0-2.1) 03/30/17 06:16 Blood Type O POSITIVE 03/26/17 13:43 Antibody Screen Negative 03/26/17 13:43 - Hospital Course Hospital Course: ADMITTED WITH COPD AND THEN HE WAS FOUND TO HAVE ANEMIA WITH GI BLEED AND COLON LESIONS AND HE UNDERWENT COLON RESECTION AND HAS ILEOSTOMY AND IS FOR DISCHARGE Discharge Exam - Head Exam Head Exam: ATRAUMATIC, NORMAL INSPECTION, NORMOCEPHALIC - Eye Exam Eye Exam: EOMI, Normal appearance, PERRL Pupil Exam: NORMAL ACCOMODATION - ENT Exam ENT Exam: Mucous Membranes Moist, Normal Exam, Normal Oropharynx, TM's Normal Bilaterally - Neck Exam Neck exam: Normal Inspection - Respiratory Exam Respiratory Exam: Decreased Breath Sounds, Rhonchi, Wheezes - Cardiovascular Exam Cardiovascular Exam: Tachycardia, REGULAR RHYTHM, +S1 - GI/Abdominal Exam GI & Abdominal Exam: Normal Bowel Sounds (POST OP, AND ILEOSTOMY, WOUNDS AND CLEAN) - Rectal Exam Rectal Exam: NORMAL INSPECTION - Neurological Exam Neurological exam: Abnormal Gait, Alert, CN II-XII Intact, Oriented x3, Reflexes Normal - Psychiatric Exam Psychiatric exam: Anxious, Flat Affect - Skin Skin Exam: Intact Discharge Plan - Discharge Medications Prescriptions: predniSONE [Prednisone] 10 mg PO DAILY 30 Days - Follow Up Plan Condition: FAIR Disposition: REHAB FACILITY/REHAB UNIT Instructions: Heart Failure (DC), Ileostomy Care (DC), Deep Venous Thrombosis ( DC), Bowel Resection (DC), COPD (Chronic Obstructive Pulmonary Disease) (DC), Anemia (DC) Additional Instructions: Please call Dr. Garcia upon patient arrival to the facility Please use BIPAP at night - 12/6/FIO2 30% PLEASE F/U WITH DR. NIETO OFFICE IN 14 DAYS TO REMOVE RIP- CALL FOR APPOINTMENT AND MAKE ARRANGEMENT PLEASE REPEAT INR ON SUNDAY AND CALL Kathya [facility] RESULT PLEASE CONTINUE LOVENOX 70 MG Q12 WITH COUMADIN 7.5 MG DAILY UNTIL INR ABOVE 2.0 PLEASE DO CBC, BMP Q SUNDAY Referrals: Hal Garcia MD [Primary Care Provider] - Lucho Nieto Jr., MD [Staff Provider] -
== END 2017-04-12 21:54 | DRG 329 ==
LOC: SUPCPDRO 00:10 → C.ER 00:10 → C.9E 01:47 → C.9I 06:52 → C.5T 14:58 → OBSVTOIN 03-20 17:05 → C.9I 03-27 17:15 → C.6T 03-30 14:30
PROVIDERS: ADMIT Internal Medicine; ATTEND Internal Medicine
PROC: 5A1955Z Respiratory Ventilation, Greater than 96 Consecutive Hours (ICD-10-PCS; 2017-03-20)
PROC: 0DBN8ZX Excision of Sigmoid Colon, Via Natural or Artificial Opening Endoscopic, Diagnostic (ICD-10-PCS; 2017-03-22)
PROC: 0DBL8ZX Excision of Transverse Colon, Via Natural or Artificial Opening Endoscopic, Diagnostic (ICD-10-PCS; 2017-03-22)
PROC: 0DB68ZX Excision of Stomach, Via Natural or Artificial Opening Endoscopic, Diagnostic (ICD-10-PCS; principal; 2017-03-22 11:51)
PROC: 0DTN0ZZ Resection of Sigmoid Colon, Open Approach (ICD-10-PCS; 2017-03-27)
PROC: 0T768DZ Dilation of Right Ureter with Intraluminal Device, Via Natural or Artificial Opening Endoscopic (ICD-10-PCS; 2017-03-27)
DX: D01.1 Carcinoma in situ of rectosigmoid junction (principal); J96.20 Acute and chronic respiratory failure, unspecified whether with hypoxia or hypercapnia; J44.1 Chronic obstructive pulmonary disease with (acute) exacerbation; B37.81 Candidal esophagitis; E11.22 Type 2 diabetes mellitus with diabetic chronic kidney disease; I27.2 Other secondary pulmonary hypertension; I13.0 Hypertensive heart and chronic kidney disease with heart failure and stage 1 through stage 4 chronic kidney disease, or unspecified chronic kidney disease; I50.9 Heart failure, unspecified; D37.5 Neoplasm of uncertain behavior of rectum; D72.829 Elevated white blood cell count, unspecified; K56.7 Ileus, unspecified; I82.441 Acute embolism and thrombosis of right tibial vein; K20.9 Esophagitis, unspecified; D12.2 Benign neoplasm of ascending colon; D12.3 Benign neoplasm of transverse colon; E87.6 Hypokalemia; D50.0 Iron deficiency anemia secondary to blood loss (chronic); F41.1 Generalized anxiety disorder; K29.70 Gastritis, unspecified, without bleeding; K62.1 Rectal polyp; K64.8 Other hemorrhoids; D12.7 Benign neoplasm of rectosigmoid junction; D12.5 Benign neoplasm of sigmoid colon; J30.9 Allergic rhinitis, unspecified; G47.33 Obstructive sleep apnea (adult) (pediatric); I25.10 Atherosclerotic heart disease of native coronary artery without angina pectoris; N18.9 Chronic kidney disease, unspecified; Z87.891 Personal history of nicotine dependence; B96.81 Helicobacter pylori [H. pylori] as the cause of diseases classified elsewhere

== ENCOUNTER 2017-04-16 11:31 | Inpatient (IN) | payer MEDICARE ==
[2017-04-16 11:32] VITALS: BMI 27.3
[2017-04-16] MEDS ORDERED: Iohexol 240 (50 ml) PO STA (12:41)
[2017-04-16] MEDS ORDERED: Iohexol 240 (50 ml) ONE (12:55)
[2017-04-16] MEDS ORDERED: Barium Sulfate Susp 2.1% w/v, 2.0% w/w 450 mL Bottle PO ONE (13:06)
[2017-04-16 13:18] LABS: BASO # 0.1 K/uL (0.0-0.2); BASO % 1.1 % (0.0-2.0); EOS # 0.3 K/uL (0.0-0.7); HEMATOCRIT 38.4 % (35.0-51.0); LYMPH # 1.5 K/uL (1.0-4.3); LYMPH % 16.8 % (20.0-40.0); MEAN CORPUSCULAR HEMOGLOBIN 22.1 pg (27.0-31.0); MONO # 0.6 K/uL (0.0-0.8); MONO % 7.2 % (0.0-10.0); NRBC % 0.1 % (0.0-2.0); RED CELL DISTRIBUTION WIDTH 31.6 % (11.5-14.5); WHITE BLOOD COUNT 8.7 K/uL (4.8-10.8)
[2017-04-16 13:22] LABS: MEAN CELL VOLUME 71.3 fL (80.0-94.0)
[2017-04-16] MEDS ORDERED: Morphine 4 MG/ML VIAL ONE (13:22)
[2017-04-16 13:30] LABS: ALB/GLOB RATIO 1.2 (1.0-2.1); ALKALINE PHOSPHATASE 140 U/L (38-126); ALT/SGPT 73 U/L (21-72); AMYLASE 52 U/L (30-110); AST/SGOT 52 U/L (17-59); BILIRUBIN,TOTAL 0.5 mg/dL (0.2-1.3); BLOOD UREA NITROGEN 4 mg/dL (9-20); CALCIUM 9.5 mg/dl (8.6-10.4); CARBON DIOXIDE 29 mmol/L (22-30); CHLORIDE 96 mmol/L (98-107); GFR AFRICAN-AMERICAN > 60; GLUCOSE,RANDOM 187 mg/dL (75-110); SODIUM 140 mmol/L (132-148); TOTAL PROTEIN 6.6 g/dL (6.3-8.3)
[2017-04-16] MEDS ORDERED: Morphine 4 MG/ML VIAL IV STA (13:33)
--- NOTE | 2017-04-16 13:36 | C.PDOC ---
History Of Present Illness A 67 year old male, whose past medical history includes anxiety, arthritis, asthma, bronchitis, CHF, COPD, Diabetes, Emphysema, hypertension, hypercholesterolemia, pneumonia, chronic kidney disease, and sleep apnea, presents to the emergency department for post operative wounds vertical to the mid abdomen region. The patient is complaining of not feeling well and has pain to his wound. The patient denies any chest pain, shortness of breath, fever, nausea, or any other complaints at this time. Chief Complaint (Nursing): Abdominal Pain History Per: Patient History/Exam Limitations: no limitations Onset/Duration Of Symptoms: Other Current Symptoms Are (Timing): Still Present Radiation Of Pain To:: None Associated Symptoms: denies: Fever, Nausea Past Medical History Vital Signs: Last Vital Signs Temp 98 F 04/16/17 15:07 Pulse 110 H 04/16/17 15:07 Resp 17 04/16/17 15:07 BP 141/81 04/16/17 15:07 Pulse Ox 100 04/16/17 16:31 - Medical History PMH: Anxiety, Arthritis (BACK; KNEES), Asthma, Bronchitis, CHF, COPD, Diabetes, Emphysema, HTN, Hypercholesterolemia, Pneumonia, Chronic Kidney Disease, Sleep Apnea Denies: Gastritis - [facility] Procedures ASSISTANCE WITH RESPIRATORY VENTILATION, 24-96 HRS, CPAP (01/24/17) ASSISTANCE WITH RESPIRATORY VENTILATION, <24 HRS, CPAP (07/08/16) ASSISTANCE WITH RESPIRATORY VENTILATION, >96 HRS, CPAP (03/03/17) CONTINUOUS INVASIVE MECHANICAL VENTILATION <96 CONSEC HRS (11/29/14) DILATION OF RIGHT URETER WITH INTRALUMINAL DEVICE, ENDO (03/20/17) EXCISION OF SIGMOID COLON, ENDO, DIAGN (03/20/17) EXCISION OF STOMACH, ENDO, DIAGN (03/20/17) EXCISION OF TRANSVERSE COLON, ENDO, DIAGN (03/20/17) INFLUENZA VACCINATION (06/02/14) INSERT ENDOTRACHEAL TUBE (11/29/14) LARYGNOSCOPY AND OTH TRACHEOSCOPY (04/18/15) MEASURE OF CARDIAC SAMPL & PRESSURE, L HEART, PERC APPROACH (12/01/15) NON-INVASIVE MECHANICAL VENTILATION (04/18/15) RESECTION OF SIGMOID COLON, OPEN APPROACH (03/20/17) RESPIRATORY VENTILATION, GREATER THAN 96 CONSECUTIVE HOURS (03/20/17) Family History: States: No Known Family Hx, Unknown Family Hx - Social History Hx Tobacco Use: Yes (8 years ppd smoker. quit 1.5 years ago) Hx Alcohol Use: No Hx Substance Use: No - Immunization History Hx Tetanus Toxoid Vaccination: Yes Hx Influenza Vaccination: No Hx Pneumococcal Vaccination: Yes (12/01/2014) Review Of Systems Except As Marked, All Systems Reviewed And Found Negative. Constitutional: Negative for: Fever Cardiovascular: Negative for: Chest Pain Respiratory: Negative for: Shortness of Breath Gastrointestinal: Positive for: Abdominal Pain (tenderness to psot operative wound). Negative for: Nausea Physical Exam - Physical Exam Appears: Well, Non-toxic, No Acute Distress Skin: Normal Color, Warm, Dry Head: Atraumatic, Normacephalic Eye(s): bilateral: Normal Inspection, PERRL, EOMI Nose: Normal Throat: Normal Neck: Normal Cardiovascular: Rhythm Regular Respiratory: Normal Breath Sounds Gastrointestinal/Abdominal: Tenderness, Other (post op. scar mid abdomen vertical is erythematous and same for right lower quadrant colostomy bag) Back: Normal Inspection Extremity: Normal ROM Neurological/Psych: Oriented x3, Normal Speech, Normal Cognition ED Course And Treatment - Laboratory Results Result Diagrams: 04/16/17 13:15 04/16/17 13:15 O2 Sat by Pulse Oximetry: 100 - CT Scan/US Abd/pelvis CT Other Rad Studies (CT/US): Read By Radiologist, Radiology Report Reviewed CT/US Interpretation: Accession No. : [id number]. Patient Name / ID : CANDI Lyons / [id number]. Exam Date : 04/16/2017 14:38:30 ( Approved ). Study Comment : Sex / Age : M / 67Y. Creator : Garfield Owusu MD. Dictator : Garfield Owusu MD. Press Tool Maker : Surgical Instrument Technician : Garfield Owusu MD. Approver2 : Report Date : 04/16/2017 15:28:07. My Comment : . PROCEDURE: CT Abdomen and Pelvis with contrast. HISTORY: post op abdominal pain/infection. COMPARISON: None. TECHNIQUE: Contrast dose : None. Radiation dose: Total exam DLP = 449 mGy-cm. This CT exam was performed using one or more of the following dose reduction techniques: Automated exposure control, adjustment of the mA and/or kV according to patient size, and/or use of iterative reconstruction technique. FINDINGS: LOWER THORAX : Left hemidiaphragm elevation is noted with linear atelectasis identified in the left lower lobe base. LIVER: Borderline hepatomegaly again noted. GALLBLADDER AND BILE DUCTS: Stable appearing an unremarkable this time. PANCREAS: Unremarkable. No gross lesion or ductal dilatation. SPLEEN: Unremarkable. ADRENALS: Unremarkable. No mass. KIDNEYS AND URETERS: Punctate intrarenal calcified midpole right kidney. No obstructive uropathy bilaterally. No radiodense urolithiasis left kidney. Nonspecific streaky perinephric changes are again seen bilaterally. VASCULATURE: Unremarkable. No aortic aneurysm. BOWEL: Right lower conduct quadrant ileostomy is now identified postoperatively. The stomach and small-bowel loops are distended once again potentially increase compared to prior abdomen x-ray series 53739. No extravasation of oral contrast is appreciated however segments of the colon appear collapse particularly at the mid and distal thirds. Pattern suspicious for distal small bowel obstruction transitioning in the right pelvis superiorly. An ileus is secondary differential diagnosis postoperatively. Postoperative pattern on 04/03/2017 appear to be an ileus. No free intrarenal gas identified this time. Surgical pack is identified the inferior margins of the ventral abdominal incision without definite abscess. Rectal anastomotic suture line appears intact, status post segmental resection. APPENDIX: Normal appendix. PERITONEUM: Unremarkable. No free fluid. No free air. LYMPH NODES: Unremarkable. No enlarged lymph nodes. BLADDER: The bladder appears distended but is otherwise unremarkable. REPRODUCTIVE: Mild prostate gland enlargement again evident. BONES: No acute fracture. OTHER FINDINGS: None. IMPRESSION: 1. Findings suspicious for distal small bowel obstruction transitioning at the right pelvis superiorly (these series 3, images 85-110). Postoperative ileus is a secondary differs diagnosis. No free intrarenal gas identified this time. 2. Punctate intrarenal calculus right kidney nonobstructive. 3. Other lesser findings as per above. - Physician Consult Information Physician Contacted: Hal Garcia Outcome Of Conversation: Accepted to med/surg for admission. Medical Decision Making Medical Decision Making: Treatment Plan: -- Abd & Pelv CT -- Morphine, Iohexol -- Bood Culture -- Saline Lock Progress Notes: Patient was seen by certified surgical tech/first assistant who discussed case with who recommended to start Vanco and Zosyn IV and to admit patient to PMD service. CT abd was recommended to r/o intra-abdominal abscess. Disposition - Disposition Disposition: HOSPITALIZED Disposition Time: 15:23 Condition: FAIR - Clinical Impression Clinical Impression: Abdominal pain, Post-op pain - Scribe Statement The provider has reviewed the documentation as recorded by the Scribe Cassy Landis All medical record entries made by the Scribe were at my direction and personally dictated by me. I have reviewed the chart and agree that the record accurately reflects my personal performance of the history, physical exam, medical decision making, and the department course for this patient. I have also personally directed, reviewed, and agree with the discharge instructions and disposition. Decision To Admit - Pt Status Changed To: Hospital Disposition Of: Inpatient - Admit Certification Admit to Inpatient:: After my assessment, the patient will require hospitalization for at least two midnights. This is because of the severity of symptoms shown, intensity of services needed, and/or the medical risk in this patient being treated as an outpatient. - InPatient: Physician Admission Certification:: pt will need more than 2 days of admission - . Bed Request Type: Regular Admitting Physician: Hal Garcia Patient Diagnosis: Abdominal pain, Post-op pain
[2017-04-16] MEDS ORDERED: Vancomycin 1 GM 1 GM/250 ML BAG IVPB ONE (15:28)
--- NOTE | 2017-04-16 15:29 | CT ---
PROCEDURE: CT Abdomen and Pelvis with contrast HISTORY: post op abdominal pain/infection COMPARISON: None. TECHNIQUE: Contrast dose: None Radiation dose: Total exam DLP = 449 mGy-cm. This CT exam was performed using one or more of the following dose reduction techniques: Automated exposure control, adjustment of the mA and/or kV according to patient size, and/or use of iterative reconstruction technique. FINDINGS: LOWER THORAX: Left hemidiaphragm elevation is noted with linear atelectasis identified in the left lower lobe base. LIVER: Borderline hepatomegaly again noted. GALLBLADDER AND BILE DUCTS: Stable appearing an unremarkable this time. PANCREAS: Unremarkable. No gross lesion or ductal dilatation. SPLEEN: Unremarkable. ADRENALS: Unremarkable. No mass. KIDNEYS AND URETERS: Punctate intrarenal calcified midpole right kidney. No obstructive uropathy bilaterally. No radiodense urolithiasis left kidney. Nonspecific streaky perinephric changes are again seen bilaterally. VASCULATURE: Unremarkable. No aortic aneurysm. BOWEL: Right lower conduct quadrant ileostomy is now identified postoperatively. The stomach and small-bowel loops are distended once again potentially increase compared to prior abdomen x-ray series 27609. No extravasation of oral contrast is appreciated however segments of the colon appear collapse particularly at the mid and distal thirds. Pattern suspicious for distal small bowel obstruction transitioning in the right pelvis superiorly. An ileus is secondary differential diagnosis postoperatively. Postoperative pattern on 04/03/2017 appear to be an ileus. No free intrarenal gas identified this time. Surgical pack is identified the inferior margins of the ventral abdominal incision without definite abscess. Rectal anastomotic suture line appears intact, status post segmental resection. APPENDIX: Normal appendix. PERITONEUM: Unremarkable. No free fluid. No free air. LYMPH NODES: Unremarkable. No enlarged lymph nodes. BLADDER: The bladder appears distended but is otherwise unremarkable. REPRODUCTIVE: Mild prostate gland enlargement again evident. BONES: No acute fracture. OTHER FINDINGS: None. IMPRESSION: 1. Findings suspicious for distal small bowel obstruction transitioning at the right pelvis superiorly (these series 3, images 85-110). Postoperative ileus is a secondary differs diagnosis. No free intrarenal gas identified this time. 2. Punctate intrarenal calculus right kidney nonobstructive. 3. Other lesser findings as per above.
[2017-04-16] MEDS ORDERED: Albuterol-Ipratrop 3 mg / 0.5 (3 ml) UD ONE (16:51)
[2017-04-16] MEDS: (Novolin R) Insulin Human Regular 100 units/ml vial SC SCH ×2 (17:02→21:55)
[2017-04-16] MEDS: Piperacillin/Tazobact 3.375 GM in Sodium Chloride 100 ML IVPB SCH ×2 (17:05→23:30)
[2017-04-16] MEDS ORDERED: Piperacillin/Tazobact 3.375 gm 100 ML IVPB ONE (17:06)
[2017-04-16] MEDS ORDERED: metroNIDAZOLE IV 500 mg/100 ml 500 MG/100 ML BAG ONE (17:07)
[2017-04-16] MEDS: metroNIDAZOLE IV 500 mg/100 ml 500 MG/100 ML BAG IVPB SCH ×2 (17:40→21:53)
[2017-04-16 18:32] VITALS: RESP 20
[2017-04-16] MEDS: Albuterol-Ipratrop 3 mg / 0.5 (3 ml) UD INH SCH (19:40)
[2017-04-16] MEDS: Sodium Chloride 0.9% 1,000 ML IV SCH (21:20)
[2017-04-16] MEDS: Bacitracin 500 Units/gm Oint Foilpak UD TOP SCH (21:37)
[2017-04-16] MEDS: MethylPREDNISolone 40 mg Vial IV SCH (21:38)
[2017-04-16] MEDS: guaiFENesin 600 mg ER Tab PO SCH (21:38)
--- NOTE | 2017-04-16 21:48 | CON ---
DATE: 04/16/2017 HISTORY OF PRESENT ILLNESS: The patient is a 67-year-old man recently discharged, had a colectomy for an in situ carcinoma and 3 large polyps in his intestine. The patient has chronically been on steroids and because of that he had retention sutures placed. At the bottom of the incision approximately 1 inch area has dehisced. The kiran have fallen apart. There are no systemic sign of infection such as fever, white count, etc. I think this is a partial wound dehiscence in low portion of the incision, to be managed expectantly with local wound care. If the patient exhibited signs of sepsis, of course she should be treated systemically. This should heal uneventfully; however, he remains on prednisone and this will be very problematic in his mcc healing. Lucho Nieto Jr., MD
[2017-04-17] MEDS: Albuterol-Ipratrop 3 mg / 0.5 (3 ml) UD INH SCH ×4 (01:10→19:47)
[2017-04-17] MEDS: metroNIDAZOLE IV 500 mg/100 ml 500 MG/100 ML BAG IVPB SCH ×3 (05:40→22:00)
[2017-04-17] MEDS: Bacitracin 500 Units/gm Oint Foilpak UD TOP SCH ×3 (05:51→22:21)
[2017-04-17] MEDS: Piperacillin/Tazobact 3.375 GM in Sodium Chloride 100 ML IVPB SCH ×3 (06:35→23:02)
[2017-04-17] MEDS: (Novolin R) Insulin Human Regular 100 units/ml vial SC SCH ×4 (08:34→21:57)
[2017-04-17] MEDS ORDERED: Enoxaparin 40 mg Syringe SC SCH (10:00)
[2017-04-17] MEDS: MethylPREDNISolone 40 mg Vial IV SCH ×2 (10:21→21:59)
[2017-04-17] MEDS: guaiFENesin 600 mg ER Tab PO SCH ×2 (10:33→18:02)
--- NOTE | 2017-04-17 10:52 | CP.PCM.PN ---
Subjective - Date & Time of Evaluation Date of Evaluation: 04/17/17 Time of Evaluation: 10:46 - Subjective Subjective: Gen Sx: Dr Nieto Pt S&E. RIKA. Remains with abdominal pain, worse at lower portion of incision which has minimal dehiscence. Dressing changed at bedside. Denies F/C, N/V. Objective - Vital Signs/Intake and Output Vital Signs (last 24 hours): Temp Pulse Resp BP Pulse Ox 97.6 F 100 H 20 105/68 96 04/17/17 08:05 04/17/17 08:05 04/17/17 08:05 04/17/17 08:05 04/17/17 08:05 Intake and Output: 04/17/17 04/17/17 06:59 18:59 Intake Total 900 Output Total 1400 Balance -500 - Medications Medications: Current Medications Albuterol/Ipratropium (Duoneb 3 Mg/0.5 Mg (3 Ml) Ud) 3 ml INH RQ6 [facility] Last Admin: 04/17/17 07:36 Dose: 3 ml Alprazolam (Xanax) 0.5 mg PO Q12H [facility] Last Admin: 04/17/17 10:31 Dose: 0.5 mg Bacitracin (Bacitracin) 1 ea TOP QSHIFT [facility] Last Admin: 04/17/17 05:51 Dose: 1 ea Enoxaparin Sodium (Lovenox) 40 mg SC DAILY [facility] Last Admin: 04/17/17 10:34 Dose: 40 mg Guaifenesin (Mucinex La) 600 mg PO BID [facility] Last Admin: 04/17/17 10:33 Dose: Not Given Hydromorphone HCl (Dilaudid) 0.5 mg IVP Q4H PRN PRN Reason: Pain, severe (8-10) Piperacillin Sod/Tazobactam (Sod 3.375 gm/ Sodium Chloride) 100 mls @ 200 mls/ hr IVPB Q8H [facility] Last Admin: 04/17/17 06:35 Dose: 200 mls/hr Vancomycin HCl 1 gm/ Sodium (Chloride) 250 mls @ 166.7 mls/hr IVPB Q24H [facility] Last Admin: 04/16/17 15:30 Dose: 166.7 mls/hr Metronidazole (Flagyl) 500 mg in 100 mls @ 100 mls/hr IVPB Q8 [facility] Last Admin: 04/17/17 05:40 Dose: 100 mls/hr Ceftriaxone Sodium 1 gm/ (Sodium Chloride) 100 mls @ 100 mls/hr IVPB DAILY [facility] Last Admin: 04/17/17 10:35 Dose: 100 mls/hr Sodium Chloride (Sodium Chloride 0.9%) 1,000 mls @ 50 mls/hr IV .Q20H [facility] Last Admin: 04/16/17 21:20 Dose: 50 mls/hr Insulin Human Regular (Novolin R) 0 unit SC ACHS [facility] PRN Reason: Protocol Last Admin: 04/17/17 08:34 Dose: Not Given Ketorolac Tromethamine (Toradol) 15 mg IVP Q6 PRN PRN Reason: Pain, moderate (4-7) Last Admin: 04/16/17 18:32 Dose: 15 mg Methylprednisolone (Solu-Medrol) 20 mg IV Q12 [facility] Last Admin: 04/17/17 10:21 Dose: 20 mg Pneumococcal Polyvalent Vaccine (Pneumovax 23 Vaccine) 0.5 ml IM .ONCE ONE Stop: 04/18/17 10:01 Roflumilast (Daliresp) 500 mcg PO DAILY [facility] Last Admin: 04/17/17 10:37 Dose: Not Given - Constitutional Appears: Non-toxic, No Acute Distress - Respiratory Exam Respiratory Exam: absent: Respiratory Distress - Cardiovascular Exam Cardiovascular Exam: REGULAR RHYTHM - GI/Abdominal Exam GI & Abdominal Exam: Soft. absent: Distended, Guarding Additional comments: midline incision w/ retention sutures ~1 inch area of dehiscence at lower pole of wound packed wet--> dry dressing changes this morning - Neurological Exam Neurological Exam: Alert, Awake, Oriented x3 - Skin Skin Exam: Normal Color, Warm Assessment and Plan - Assessment and Plan (Free Text) Assessment: 67M with partial wound dehiscence Plan: continue local wound care wet-dry dressing changes BID will cont to follow d/w Dr Emilia Mcmullen, PGY3
[2017-04-17] MEDS ORDERED: Enoxaparin 80 mg Syringe SC SCH (11:00)
[2017-04-17] MEDS: HYDROmorphone 0.5 mg/0.5 ml ISec IVP PRN ×2 (13:15→19:49)
[2017-04-17 14:10] LABS: INR 3.1
[2017-04-17] MEDS: Sodium Chloride 0.9% 1,000 ML IV SCH (22:07)
[2017-04-18] MEDS: Albuterol-Ipratrop 3 mg / 0.5 (3 ml) UD INH SCH ×4 (01:12→20:06)
[2017-04-18] MEDS: HYDROmorphone 0.5 mg/0.5 ml ISec IVP PRN ×3 (05:01→19:29)
[2017-04-18] MEDS: metroNIDAZOLE IV 500 mg/100 ml 500 MG/100 ML BAG IVPB SCH ×2 (05:01→13:54)
[2017-04-18] MEDS: Bacitracin 500 Units/gm Oint Foilpak UD TOP SCH ×3 (05:01→21:47)
[2017-04-18] MEDS: Piperacillin/Tazobact 3.375 GM in Sodium Chloride 100 ML IVPB SCH ×3 (06:30→23:00)
--- NOTE | 2017-04-18 07:08 | HP ---
CHIEF COMPLAINT: Abdominal pain times few hours. HISTORY OF PRESENT ILLNESS: This is a 67-year-old male, well known to me with a history of extensive COPD, generalized anxiety disorder, allergic rhinitis, steroid-induced diabetes, and he is compliant with diet, medication and followup. Recently, he underwent colon resection with ileostomy and he was found to have in situ colon cancer and postoperatively he was in subacute rehab facility in [place] and he developed abdominal pain, which was acute and worsening. He was in distress. According to the patient, it was the abdominal pain to hypogastric and right lower quadrant area. He denies any fever, chills or rigors. According to him he has stool in his colostomy bag. He denies any nausea or vomiting. He denies any diarrhea. He denies any polyuria, polydipsia, or polyphagia. He denies any hematuria or polyuria. He denies any history of colon fissure or loss of consciousness. He has been compliant with medication. He has been following instructions that he had. He has been sneezing and itchy eyes. He denies any chest pain. He has palpitation and weakness. He denies any joint pain or neck pain. He denies any tingling, numbness, or paresthesia. PAST MEDICAL HISTORY: Generalized anxiety disorder, COPD, diabetes, hypertension, and colon cancer. SOCIAL HISTORY: Ex-smoker. Non-EtOH user. FAMILY HISTORY: Negative for premature coronary artery disease. CURRENT MEDICATIONS: At home, he is on Advair, Xanax, Silvadene cream, Singulair, Pulmicort, prednisone, oxycodone, milk of magnesia, metformin, guaifenesin, Lyrica, Daliresp, DuoNeb, Coumadin, and Brovana. PHYSICAL EXAMINATION GENERAL: This is an elderly male, in mild distress. VITAL SIGNS: Blood pressure 105/67, pulse 100, respiratory rate 22, and temperature 99.6. SKIN: The patient has bruises. HEENT: Atraumatic, normocephalic. Negative PERRLA. Negative jaundice. Extraocular movements are intact. NECK: Supple. Flat neck veins. No JVD. No lymph node. No thyromegaly. No carotid bruit. CHEST: Chest wall bilaterally symmetrical expansion. LUNGS: Bilateral decreased air entry. Few rhonchi. CARDIOVASCULAR: S1 and S2, regular. Tachycardic. ABDOMEN: Soft, nontender. Bowel sounds are positive. The patient has ileostomy with bowel fecal matter and the patient has stitches and he has support on the stitches. RECTAL: Enlarged prostate. EXTREMITIES: There is clubbing. No cyanosis or edema. SOLUTIONS CONSULTANT: Awake, alert, and oriented x3. Rest of SOLUTIONS CONSULTANT exam is normal. ASSESSMENT: 1. Abdominal pain, rule out small bowel obstruction on CAT scan. There was small bowel obstruction. 2. Chronic obstructive pulmonary disease. 3. Steroid-induced diabetes. 4. Dehydration. PLAN: Admit, detailed orders written, seen and examined. Hal Garcia MD
[2017-04-18] MEDS: (Novolin R) Insulin Human Regular 100 units/ml vial SC SCH ×4 (07:35→21:41)
--- NOTE | 2017-04-18 07:47 | CP.PCM.PN ---
Subjective - Date & Time of Evaluation Date of Evaluation: 04/18/17 Time of Evaluation: 07:44 - Subjective Subjective: Patient was seen and examined at bedside in no acute distress. Patient has no complaints and pain is well controlled. Patient is eating and tolerating diet well. Patient denies chest pain, abdominal pain, leg/calf pain, nausea, and vomiting. Objective - Vital Signs/Intake and Output Vital Signs (last 24 hours): Temp Pulse Resp BP Pulse Ox 97.7 F 82 20 117/73 100 04/18/17 07:41 04/18/17 07:41 04/18/17 07:41 04/18/17 07:41 04/18/17 07:41 Intake and Output: 04/18/17 04/18/17 06:59 18:59 Intake Total 1020 Balance 1020 - Medications Medications: Current Medications Albuterol/Ipratropium (Duoneb 3 Mg/0.5 Mg (3 Ml) Ud) 3 ml INH RQ6 [facility] Last Admin: 04/18/17 07:33 Dose: 3 ml Alprazolam (Xanax) 0.5 mg PO Q12H [facility] Last Admin: 04/17/17 21:59 Dose: 0.5 mg Bacitracin (Bacitracin) 1 ea TOP QSHIFT [facility] Last Admin: 04/18/17 05:01 Dose: 1 ea Enoxaparin Sodium (Lovenox) 65 mg SC Q12 [facility] Last Admin: 04/17/17 12:54 Dose: Not Given Guaifenesin (Mucinex La) 600 mg PO BID [facility] Last Admin: 04/17/17 18:02 Dose: 600 mg Hydromorphone HCl (Dilaudid) 0.5 mg IVP Q4H PRN PRN Reason: Pain, severe (8-10) Last Admin: 04/18/17 05:01 Dose: 0.5 mg Piperacillin Sod/Tazobactam (Sod 3.375 gm/ Sodium Chloride) 100 mls @ 200 mls/ hr IVPB Q8H [facility] Last Admin: 04/18/17 06:30 Dose: 200 mls/hr Vancomycin HCl 1 gm/ Sodium (Chloride) 250 mls @ 166.7 mls/hr IVPB Q24H [facility] Last Admin: 04/17/17 14:33 Dose: 166.7 mls/hr Metronidazole (Flagyl) 500 mg in 100 mls @ 100 mls/hr IVPB Q8 [facility] Last Admin: 04/18/17 05:01 Dose: 100 mls/hr Sodium Chloride (Sodium Chloride 0.9%) 1,000 mls @ 50 mls/hr IV .Q20H [facility] Last Admin: 04/17/17 22:07 Dose: 50 mls/hr Insulin Human Regular (Novolin R) 0 unit SC ACHS [facility] PRN Reason: Protocol Last Admin: 04/17/17 21:57 Dose: Not Given Methylprednisolone (Solu-Medrol) 20 mg IV Q12 [facility] Last Admin: 04/17/17 21:59 Dose: 20 mg Montelukast Sodium (Singulair) 10 mg PO HS [facility] Last Admin: 04/17/17 22:00 Dose: 10 mg Pneumococcal Polyvalent Vaccine (Pneumovax 23 Vaccine) 0.5 ml IM .ONCE ONE Stop: 04/18/17 10:01 Roflumilast (Daliresp) 500 mcg PO DAILY [facility] Last Admin: 04/17/17 10:37 Dose: Not Given - Labs Labs: PT 36.9 SECONDS (9.7-12.2) H* 04/17/17 13:49 INR 3.1 04/17/17 13:49 - Head Exam Head Exam: ATRAUMATIC, NORMAL INSPECTION - Eye Exam Eye Exam: EOMI, Normal appearance - ENT Exam ENT Exam: Mucous Membranes Moist - Respiratory Exam Respiratory Exam: Respiratory Distress, NORMAL BREATHING PATTERN Additional comments: using BiPAP - Cardiovascular Exam Cardiovascular Exam: +S1, +S2 - GI/Abdominal Exam GI & Abdominal Exam: Soft. absent: Distended, Firm, Tenderness Additional comments: Left colostomy bag- gas and liquid green stool. Midline incision with retention sutures, 1in of dehiscence lower abdomen--> packed wet-to-dry dressing - Extremities Exam Extremities Exam: absent: Calf Tenderness, Pedal Edema - Neurological Exam Neurological Exam: Alert, Awake, Oriented x3 - Psychiatric Exam Psychiatric exam: Normal Affect, Normal Mood - Skin Skin Exam: Dry, Intact, Normal Color, Warm Assessment and Plan - Assessment and Plan (Free Text) Assessment: Patient is a 67 year old male s/p LAR loop ileostomy and wound dehiscence. - Patient is stable to transfer to rehab. - Continue wound care. - Continue twice daily wet-to-dry dressing changes.
[2017-04-18 08:18] LABS: BASO # 0.1 K/uL (0.0-0.2); BASO % 0.9 % (0.0-2.0); EOS # 0.1 K/uL (0.0-0.7); EOS % 1.7 % (0.0-4.0); HEMATOCRIT 32.5 % (35.0-51.0); INR 2.7; LYMPH # 1.5 K/uL (1.0-4.3); LYMPH % 18.8 % (20.0-40.0); MEAN CELL VOLUME 71.9 fL (80.0-94.0); MEAN CORPUSCULAR HEMOGLOBIN 22.2 pg (27.0-31.0); MEAN CORPUSCULAR HGB CONC 30.9 g/dL (33.0-37.0); MEAN PLATELET VOLUME 9.1 fL (7.2-11.7); MONO # 0.5 K/uL (0.0-0.8); MONO % 6.7 % (0.0-10.0); RED CELL DISTRIBUTION WIDTH 30.6 % (11.5-14.5); WHITE BLOOD COUNT 7.8 K/uL (4.8-10.8)
[2017-04-18 08:26] LABS: CHLORIDE 102 mmol/L (98-107); SODIUM 139 mmol/L (132-148)
[2017-04-18 08:28] LABS: GFR AFRICAN-AMERICAN > 60
[2017-04-18 08:29] LABS: BLOOD UREA NITROGEN 6 mg/dL (9-20); CALCIUM 8.4 mg/dl (8.6-10.4); CARBON DIOXIDE 27 mmol/L (22-30); GLUCOSE,RANDOM 93 mg/dL (75-110)
[2017-04-18] MEDS: MethylPREDNISolone 40 mg Vial IV SCH ×2 (09:10→21:41)
[2017-04-18] MEDS: guaiFENesin 600 mg ER Tab PO SCH ×2 (09:10→17:45)
[2017-04-18] MEDS ORDERED: Pneumococcal 23-Valent Vaccine IM ONE (10:00)
[2017-04-18] MEDS: Sodium Chloride 0.9% 1,000 ML IV SCH ×2 (11:47→11:48)
[2017-04-18] MEDS ORDERED: Aluminum Hydroxide/Magnesium Hydroxide Susp (30 mL) PO ONE (19:31)
--- NOTE | 2017-04-18 23:33 | CP.PCM.PN ---
Subjective - Date & Time of Evaluation Date of Evaluation: 04/18/17 - Subjective Subjective: LESS ABDOMINAL PAIN, NO SOB, FEELS BETTER Objective - Vital Signs/Intake and Output Vital Signs (last 24 hours): Temp Pulse Resp BP Pulse Ox 98.1 F 102 H 20 111/71 99 04/18/17 16:00 04/18/17 16:00 04/18/17 16:00 04/18/17 16:00 04/18/17 16:00 Intake and Output: 04/18/17 04/19/17 18:59 06:59 Intake Total 1000 Output Total 1700 Balance -700 - Medications Medications: Current Medications Albuterol/Ipratropium (Duoneb 3 Mg/0.5 Mg (3 Ml) Ud) 3 ml INH RQ6 [facility] Last Admin: 04/18/17 20:06 Dose: 3 ml Alprazolam (Xanax) 0.5 mg PO Q12H [facility] Last Admin: 04/18/17 21:40 Dose: 0.5 mg Bacitracin (Bacitracin) 1 ea TOP QSHIFT [facility] Last Admin: 04/18/17 21:47 Dose: 1 ea Guaifenesin (Mucinex La) 600 mg PO BID [facility] Last Admin: 04/18/17 17:45 Dose: 600 mg Hydromorphone HCl (Dilaudid) 0.5 mg IVP Q4H PRN PRN Reason: Pain, severe (8-10) Last Admin: 04/18/17 19:29 Dose: 0.5 mg Piperacillin Sod/Tazobactam (Sod 3.375 gm/ Sodium Chloride) 100 mls @ 200 mls/ hr IVPB Q8H [facility] Last Admin: 04/18/17 23:00 Dose: 200 mls/hr Vancomycin HCl 1 gm/ Sodium (Chloride) 250 mls @ 166.7 mls/hr IVPB Q24H [facility] Last Admin: 04/18/17 14:41 Dose: 166.7 mls/hr Insulin Human Regular (Novolin R) 0 unit SC ACHS [facility] PRN Reason: Protocol Last Admin: 04/18/17 21:41 Dose: Not Given Methylprednisolone (Solu-Medrol) 20 mg IV Q12 [facility] Last Admin: 04/18/17 21:41 Dose: 20 mg Montelukast Sodium (Singulair) 10 mg PO HS [facility] Last Admin: 04/18/17 21:40 Dose: 10 mg Roflumilast (Daliresp) 500 mcg PO DAILY [facility] Last Admin: 04/18/17 09:10 Dose: 500 mcg - Labs Labs: 04/18/17 08:02 04/18/17 08:02 PT 31.9 SECONDS (9.7-12.2) H* D 04/18/17 08:02 INR 2.7 04/18/17 08:02 - Constitutional Appears: Non-toxic, No Acute Distress, Chronically Ill - Head Exam Head Exam: ATRAUMATIC, NORMAL INSPECTION, NORMOCEPHALIC - Eye Exam Eye Exam: EOMI, Normal appearance, PERRL Pupil Exam: NORMAL ACCOMODATION - ENT Exam ENT Exam: Mucous Membranes Moist, Normal Exam, Normal Oropharynx, TM's Normal Bilaterally - Neck Exam Neck Exam: Normal Inspection - Respiratory Exam Respiratory Exam: Rhonchi - Cardiovascular Exam Cardiovascular Exam: Tachycardia, REGULAR RHYTHM, +S1, +S2 - GI/Abdominal Exam GI & Abdominal Exam: Distended, Normal Bowel Sounds - Rectal Exam Rectal Exam: NORMAL INSPECTION - Extremities Exam Extremities Exam: Normal Capillary Refill - Neurological Exam Neurological Exam: Alert, Awake, CN II-XII Intact, Normal Gait, Oriented x3 - Psychiatric Exam Psychiatric exam: Anxious - Skin Skin Exam: Intact Assessment and Plan (1) Abdominal pain Status: Acute (2) Acute exacerbation of chronic obstructive pulmonary disease (COPD) Status: Chronic (3) Diabetes Status: Chronic
[2017-04-19] MEDS: Albuterol-Ipratrop 3 mg / 0.5 (3 ml) UD INH SCH ×2 (01:18→07:37)
[2017-04-19] MEDS: HYDROmorphone 0.5 mg/0.5 ml ISec IVP PRN ×4 (03:00→16:49)
[2017-04-19] MEDS: Piperacillin/Tazobact 3.375 GM in Sodium Chloride 100 ML IVPB SCH ×2 (06:30→14:30)
[2017-04-19 07:33] LABS: INR 2.3
[2017-04-19] MEDS: (Novolin R) Insulin Human Regular 100 units/ml vial SC SCH ×2 (08:56→12:49)
[2017-04-19] MEDS: MethylPREDNISolone 40 mg Vial IV SCH (09:13)
[2017-04-19] MEDS: guaiFENesin 600 mg ER Tab PO SCH (09:13)
--- NOTE | 2017-04-19 10:22 | CP.PCM.PN ---
Subjective - Date & Time of Evaluation Date of Evaluation: 04/19/17 Time of Evaluation: 10:19 - Subjective Subjective: Patient was seen and examined at bedside in no acute distress. Patient was sitting comfortably with BiPAP on. He has no complaints and feels well. 12 point review of systems is otherwise negative. Objective - Vital Signs/Intake and Output Vital Signs (last 24 hours): Temp Pulse Resp BP Pulse Ox 97.4 F L 77 20 115/71 100 04/19/17 08:11 04/19/17 08:11 04/19/17 08:11 04/19/17 08:11 04/19/17 08:11 Intake and Output: 04/19/17 04/19/17 06:59 18:59 Intake Total 400 Output Total 600 Balance -200 - Medications Medications: Current Medications Albuterol/Ipratropium (Duoneb 3 Mg/0.5 Mg (3 Ml) Ud) 3 ml INH RQ6 [facility] Last Admin: 04/19/17 07:37 Dose: 3 ml Alprazolam (Xanax) 0.5 mg PO Q12H [facility] Last Admin: 04/19/17 09:13 Dose: 0.5 mg Bacitracin (Bacitracin) 1 ea TOP QSHIFT [facility] Last Admin: 04/18/17 21:47 Dose: 1 ea Guaifenesin (Mucinex La) 600 mg PO BID [facility] Last Admin: 04/19/17 09:13 Dose: 600 mg Hydromorphone HCl (Dilaudid) 0.5 mg IVP Q4H PRN PRN Reason: Pain, severe (8-10) Last Admin: 04/19/17 08:42 Dose: 0.5 mg Piperacillin Sod/Tazobactam (Sod 3.375 gm/ Sodium Chloride) 100 mls @ 200 mls/ hr IVPB Q8H [facility] Last Admin: 04/19/17 06:30 Dose: 200 mls/hr Vancomycin HCl 1 gm/ Sodium (Chloride) 250 mls @ 166.7 mls/hr IVPB Q24H [facility] Last Admin: 04/18/17 14:41 Dose: 166.7 mls/hr Insulin Human Regular (Novolin R) 0 unit SC ACHS [facility] PRN Reason: Protocol Last Admin: 04/19/17 08:56 Dose: Not Given Methylprednisolone (Solu-Medrol) 20 mg IV Q12 [facility] Last Admin: 04/19/17 09:13 Dose: 20 mg Montelukast Sodium (Singulair) 10 mg PO HS [facility] Last Admin: 04/18/17 21:40 Dose: 10 mg Roflumilast (Daliresp) 500 mcg PO DAILY [facility] Last Admin: 04/19/17 09:13 Dose: 500 mcg - Labs Labs: 04/18/17 08:02 04/18/17 08:02 PT 27.2 SECONDS (9.7-12.2) H 04/19/17 07:08 INR 2.3 04/19/17 07:08 - Head Exam Head Exam: ATRAUMATIC, NORMOCEPHALIC - Eye Exam Eye Exam: Normal appearance - Respiratory Exam Respiratory Exam: NORMAL BREATHING PATTERN. absent: Respiratory Distress Additional comments: on BiPAP - Cardiovascular Exam Cardiovascular Exam: +S1, +S2. absent: Bradycardia, Tachycardia - GI/Abdominal Exam GI & Abdominal Exam: Tenderness (s/p surgery). absent: Distended, Firm Additional comments: Left colostomy bag; Midline incision with retention sutures, 1in of dehiscence lower abdomen--> packed wet-to-dry dressing - Extremities Exam Extremities Exam: absent: Pedal Edema - Neurological Exam Neurological Exam: Alert, Awake, Oriented x3 - Psychiatric Exam Psychiatric exam: Normal Affect, Normal Mood - Skin Skin Exam: Dry, Warm Assessment and Plan - Assessment and Plan (Free Text) Assessment: Patient is a 67 year old male s/p LAR loop ileostomy and wound dehiscence. - Patient is stable to transfer to rehab. - Continue wound care. - Continue twice daily wet-to-dry dressing changes.
--- NOTE | 2017-04-19 12:19 | CP.PCM.PN ---
Subjective - Date & Time of Evaluation Date of Evaluation: 04/19/17 Time of Evaluation: 11:00 - Subjective Subjective: pateint seen an d examined today , abdominal pain improved, denies nay sob, N/V /D , tolerating diet R ileostomy functioning well a febrile Objective - Vital Signs/Intake and Output Vital Signs (last 24 hours): Temp Pulse Resp BP Pulse Ox 97.4 F L 77 20 115/71 100 04/19/17 08:11 04/19/17 08:11 04/19/17 08:11 04/19/17 08:11 04/19/17 08:11 Intake and Output: 04/19/17 04/19/17 06:59 18:59 Intake Total 400 Output Total 600 Balance -200 - Medications Medications: Current Medications Albuterol/Ipratropium (Duoneb 3 Mg/0.5 Mg (3 Ml) Ud) 3 ml INH RQ6 [facility] Last Admin: 04/19/17 07:37 Dose: 3 ml Alprazolam (Xanax) 0.5 mg PO Q12H [facility] Last Admin: 04/19/17 09:13 Dose: 0.5 mg Bacitracin (Bacitracin) 1 ea TOP QSHIFT [facility] Last Admin: 04/18/17 21:47 Dose: 1 ea Guaifenesin (Mucinex La) 600 mg PO BID [facility] Last Admin: 04/19/17 09:13 Dose: 600 mg Hydromorphone HCl (Dilaudid) 0.5 mg IVP Q4H PRN PRN Reason: Pain, severe (8-10) Last Admin: 04/19/17 08:42 Dose: 0.5 mg Piperacillin Sod/Tazobactam (Sod 3.375 gm/ Sodium Chloride) 100 mls @ 200 mls/ hr IVPB Q8H [facility] Last Admin: 04/19/17 06:30 Dose: 200 mls/hr Vancomycin HCl 1 gm/ Sodium (Chloride) 250 mls @ 166.7 mls/hr IVPB Q24H [facility] Last Admin: 04/18/17 14:41 Dose: 166.7 mls/hr Insulin Human Regular (Novolin R) 0 unit SC ACHS [facility] PRN Reason: Protocol Last Admin: 04/19/17 08:56 Dose: Not Given Methylprednisolone (Solu-Medrol) 20 mg IV Q12 [facility] Last Admin: 04/19/17 09:13 Dose: 20 mg Montelukast Sodium (Singulair) 10 mg PO HS [facility] Last Admin: 04/18/17 21:40 Dose: 10 mg Roflumilast (Daliresp) 500 mcg PO DAILY [facility] Last Admin: 04/19/17 09:13 Dose: 500 mcg - Labs Labs: 04/18/17 08:02 04/18/17 08:02 PT 27.2 SECONDS (9.7-12.2) H 04/19/17 07:08 INR 2.3 04/19/17 07:08 - Constitutional Appears: Well, No Acute Distress - Respiratory Exam Respiratory Exam: Decreased Breath Sounds, NORMAL BREATHING PATTERN - Cardiovascular Exam Cardiovascular Exam: REGULAR RHYTHM, +S1, +S2 - GI/Abdominal Exam GI & Abdominal Exam: Soft, Normal Bowel Sounds (R ileostomy / sutures intact midabdomen / drssing lower abdomen ) - Neurological Exam Neurological Exam: Alert, Awake, Oriented x3 Assessment and Plan - Assessment and Plan (Free Text) Assessment: A/P 67 year old male s/p LAR loop ileostomy admitted for abdominal pain and wound dehiscence. abdominal pain improved and patient tolerating diet seen by Dr. Mai and Patient is stable to transfer to rehab. and Continue wound care twice daily wet-to-dry dressing changes. d/w Dr. Garcia, cleared for discharge to [facility] today and Dr. Garcia will follow the patient at [facility] . diwcharge plan discussed with patient and at bedside , who understands and agrees with plan
[2017-04-19] MEDS: Bacitracin 500 Units/gm Oint Foilpak UD TOP SCH (13:37)
[2017-04-19 16:38] VITALS: BP 105/69; PULSE 102; TEMP 98.3; O2SAT 98
--- NOTE | 2017-04-19 22:37 | CP.PCM.DIS ---
Provider - Provider Date of Admission: 04/16/17 15:38 Attending physician: Hal Garcia MD Diagnosis - Discharge Diagnosis (1) Abdominal pain Status: Acute (2) Acute exacerbation of chronic obstructive pulmonary disease (COPD) Status: Chronic Priority: High (3) Diabetes Status: Chronic Priority: Medium Hospital Course - Lab Results Lab Results: Most Recent Lab Values WBC 7.8 K/uL (4.8-10.8) 04/18/17 08:02 RBC 4.51 Mil/uL (4.40-5.90) 04/18/17 08:02 Hgb 10.0 g/dL (12.0-18.0) L 04/18/17 08:02 Hct 32.5 % (35.0-51.0) L 04/18/17 08:02 MCV 71.9 fL (80.0-94.0) L 04/18/17 08:02 MCH 22.2 pg (27.0-31.0) L 04/18/17 08:02 MCHC 30.9 g/dL (33.0-37.0) L 04/18/17 08:02 RDW 30.6 % (11.5-14.5) H 04/18/17 08:02 Plt Count 265 K/uL (130-400) 04/18/17 08:02 MPV 9.1 fL (7.2-11.7) 04/18/17 08:02 Neut % (Auto) 71.9 % (50.0-75.0) 04/18/17 08:02 Lymph % (Auto) 18.8 % (20.0-40.0) L 04/18/17 08:02 [place] % (Auto) 6.7 % (0.0-10.0) 04/18/17 08:02 Eos % (Auto) 1.7 % (0.0-4.0) 04/18/17 08:02 Baso % (Auto) 0.9 % (0.0-2.0) 04/18/17 08:02 Neut # 5.6 K/uL (1.8-7.0) 04/18/17 08:02 Lymph # 1.5 K/uL (1.0-4.3) 04/18/17 08:02 [place] # 0.5 K/uL (0.0-0.8) 04/18/17 08:02 Eos # 0.1 K/uL (0.0-0.7) 04/18/17 08:02 Baso # 0.1 K/uL (0.0-0.2) 04/18/17 08:02 PT 27.2 SECONDS (9.7-12.2) H 04/19/17 07:08 INR 2.3 04/19/17 07:08 Sodium 139 mmol/L (132-148) 04/18/17 08:02 Potassium 5.0 mmol/L (3.6-5.2) 04/18/17 08:02 Chloride 102 mmol/L (98-107) 04/18/17 08:02 Carbon Dioxide 27 mmol/L (22-30) 04/18/17 08:02 Anion Gap 15 (10-20) 04/18/17 08:02 BUN 6 mg/dL (9-20) L 04/18/17 08:02 Creatinine 0.5 MG/DL (0.8-1.5) L 04/18/17 08:02 Est GFR ( Amer) > 60 04/18/17 08:02 Est GFR (Non-Af Amer) > 60 04/18/17 08:02 POC Glucose (mg/dL) 168 mg/dL (65-110) H 04/19/17 16:47 Random Glucose 93 mg/dL (75-110) 04/18/17 08:02 Hemoglobin A1c 6.3 % (4.2-6.5) 04/18/17 08:02 Calcium 8.4 mg/dl (8.6-10.4) L 04/18/17 08:02 Total Bilirubin 0.5 mg/dL (0.2-1.3) 04/16/17 13:15 AST 52 U/L (17-59) 04/16/17 13:15 ALT 73 U/L (21-72) H D 04/16/17 13:15 Alkaline Phosphatase 140 U/L (38-126) H 04/16/17 13:15 Total Protein 6.6 g/dL (6.3-8.3) 04/16/17 13:15 Albumin 3.6 g/dL (3.5-5.0) 04/16/17 13:15 Globulin 3.0 gm/dL (2.2-3.9) 04/16/17 13:15 Albumin/Globulin Ratio 1.2 (1.0-2.1) 04/16/17 13:15 Amylase 52 U/L (30-110) 04/16/17 13:15 Lipase 40 U/L (23-300) 04/16/17 13:15 Vancomycin Trough < 5.0 ug/mL (5.0-10.0) L 04/19/17 07:08 - Hospital Course Hospital Course: ADMITTED WITH ACUTE ABDOMINAL PAIN AND HAS SOME WOUND DEHESENCE, HE WAS EEN BY GI, SURGERY AND STABILIZED AND DISCHARGED Discharge Exam - Head Exam Head Exam: ATRAUMATIC, NORMOCEPHALIC - Eye Exam Eye Exam: EOMI, Normal appearance, PERRL Pupil Exam: NORMAL ACCOMODATION - ENT Exam ENT Exam: Mucous Membranes Moist, Normal Exam, Normal Oropharynx, TM's Normal Bilaterally - Neck Exam Neck exam: Normal Inspection - Respiratory Exam Respiratory Exam: Decreased Breath Sounds, Rhonchi, UNREMARKABLE - Cardiovascular Exam Cardiovascular Exam: REGULAR RHYTHM, +S1, +S2 - GI/Abdominal Exam GI & Abdominal Exam: Distended, Firm, Normal Bowel Sounds - Rectal Exam Rectal Exam: NORMAL INSPECTION - Neurological Exam Neurological exam: Alert, CN II-XII Intact, Normal Gait, Oriented x3, Reflexes Normal - Psychiatric Exam Psychiatric exam: Anxious - Skin Skin Exam: Intact Discharge Plan - Follow Up Plan Condition: FAIR Disposition: HOME/ ROUTINE Instructions: Colostomy Care (DC), Colostomy Creation (DC) Additional Instructions: Please f/u with Dr. Mai office in 14 days to remove kiran/sutures wound care - lower abdominal area BID- wet to dry dressing Ileostomy care daily PT/INR sunday BIPAP at HS oxygen via nasal canula 2 -3 Lit/min coumadin 3 mg daily until the next INR Referrals: Hal Garcia MD [Staff Provider] - Lucho Mai Jr., MD [Staff Provider] -
== END 2017-04-19 18:00 | disposition home or self-care (01) | DRG 920 ==
LOC: C.ER 11:31 → C.9E 15:38 → C.3T 18:47
PROVIDERS: ADMIT Internal Medicine; ATTEND Internal Medicine
DX: T81.31XA Disruption of external operation (surgical) wound, not elsewhere classified, initial encounter (principal); J44.1 Chronic obstructive pulmonary disease with (acute) exacerbation; E11.22 Type 2 diabetes mellitus with diabetic chronic kidney disease; C18.9 Malignant neoplasm of colon, unspecified; I13.0 Hypertensive heart and chronic kidney disease with heart failure and stage 1 through stage 4 chronic kidney disease, or unspecified chronic kidney disease; I50.9 Heart failure, unspecified; E86.0 Dehydration; E78.00 Pure hypercholesterolemia, unspecified; N18.9 Chronic kidney disease, unspecified; F41.1 Generalized anxiety disorder; G47.30 Sleep apnea, unspecified; Y83.8 Other surgical procedures as the cause of abnormal reaction of the patient, or of later complication, without mention of misadventure at the time of the procedure; Z85.038 Personal history of other malignant neoplasm of large intestine; Z79.52 Long term (current) use of systemic steroids; Z93.3 Colostomy status; Z87.891 Personal history of nicotine dependence

== ENCOUNTER 2017-05-08 20:40 | Inpatient (IN) | payer MEDICARE ==
[2017-05-08 20:40] VITALS: BMI 27.3
[2017-05-08] MEDS ORDERED: Sodium Chloride 0.9% 1,000 ML IV ONE (21:07)
[2017-05-08 21:19] LABS: BASO # 0.2 K/uL (0.0-0.2); BASO % 0.8 % (0.0-2.0); EOS % 0.1 % (0.0-4.0); HEMATOCRIT 35.2 % (35.0-51.0); LYMPH % 11.2 % (20.0-40.0); MEAN CELL VOLUME 71.6 fL (80.0-94.0); MEAN CORPUSCULAR HEMOGLOBIN 23.4 pg (27.0-31.0); MEAN CORPUSCULAR HGB CONC 32.6 g/dL (33.0-37.0); MEAN PLATELET VOLUME 8.5 fL (7.2-11.7); MONO # 1.4 K/uL (0.0-0.8); MONO % 7.5 % (0.0-10.0); RED CELL DISTRIBUTION WIDTH 25.9 % (11.5-14.5); VENOUS BLOOD GAS PCO2 40 mmHg (40-60); VENOUS BLOOD PH 7.43 (7.32-7.43); WHITE BLOOD COUNT 18.2 K/uL (4.8-10.8)
--- NOTE | 2017-05-08 21:23 | C.PDOC ---
History Of Present Illness Patient with history of chronic COPD presents to the ED from snf with abdominal pain and shortness of breath that has been worsening today. Patient had abdominal surgery five weeks ago with colostomy placed. Denies chills, nausea, or vomiting. Time Seen by Provider: 05/08/17 21:22 Chief Complaint (Nursing): Shortness Of Breath History Per: Patient History/Exam Limitations: no limitations Onset/Duration Of Symptoms: Worse Since (today ) Current Symptoms Are (Timing): Still Present Quality: "Pain" Current Respiratory Medications: See Home Med List Severity: Moderate Pain Scale Rating Of: 5 Associated Symptoms: denies: Fever, Chills, Sweating, Chest Pain Reports Recently: Treated By A Physician Recent travel outside of the [place]: No Additional History Per: Intermediate Past Medical History Reviewed: Historical Data, Nursing Documentation, Vital Signs Vital Signs: Last Vital Signs Temp 97.3 F L 05/09/17 01:32 Pulse 96 H 05/09/17 01:32 Resp 20 05/09/17 01:32 BP 112/71 05/09/17 01:32 Pulse Ox 98 05/09/17 01:32 - Medical History PMH: Anxiety, Arthritis (BACK; KNEES), Asthma, Bronchitis, CHF, COPD, Diabetes, Emphysema, HTN, Hypercholesterolemia, Pneumonia, Chronic Kidney Disease, Sleep Ap[facility] ASSISTANCE WITH RESPIRATORY VENTILATION, 24-96 HRS, CPAP (01/24/17) ASSISTANCE WITH RESPIRATORY VENTILATION, <24 HRS, CPAP (07/08/16) ASSISTANCE WITH RESPIRATORY VENTILATION, >96 HRS, CPAP (03/03/17) CONTINUOUS INVASIVE MECHANICAL VENTILATION <96 CONSEC HRS (11/29/14) DILATION OF RIGHT URETER WITH INTRALUMINAL DEVICE, ENDO (03/20/17) EXCISION OF SIGMOID COLON, ENDO, DIAGN (03/20/17) EXCISION OF STOMACH, ENDO, DIAGN (03/20/17) EXCISION OF TRANSVERSE COLON, ENDO, DIAGN (03/20/17) INFLUENZA VACCINATION (06/02/14) INSERT ENDOTRACHEAL TUBE (11/29/14) LARYGNOSCOPY AND OTH TRACHEOSCOPY (04/18/15) MEASURE OF CARDIAC SAMPL & PRESSURE, L HEART, PERC APPROACH (12/01/15) NON-INVASIVE MECHANICAL VENTILATION (04/18/15) RESECTION OF SIGMOID COLON, OPEN APPROACH (03/20/17) RESPIRATORY VENTILATION, GREATER THAN 96 CONSECUTIVE HOURS (03/20/17) Family History: States: Unknown Family Hx - Social History Hx Tobacco Use: Yes (8 years ppd smoker. quit 1.5 years ago) Hx Alcohol Use: No Hx Substance Use: No - Immunization History Hx Tetanus Toxoid Vaccination: Yes Hx Influenza Vaccination: No Hx Pneumococcal Vaccination: Yes (12/01/2014) Review Of Systems Constitutional: Negative for: Fever, Chills Cardiovascular: Negative for: Chest Pain, Palpitations Respiratory: Positive for: Shortness of Breath. Negative for: Cough Gastrointestinal: Positive for: Abdominal Pain. Negative for: Nausea, Vomiting , Diarrhea Skin: Negative for: Rash Physical Exam - Physical Exam Appears: Non-toxic, Other (appears to be in moderate respiratory distress, speaking in 1-2 word sentences ) Skin: Warm, Dry Head: Atraumatic Eye(s): bilateral: Normal Inspection Oral Mucosa: Moist Neck: Supple Chest: Symmetrical, No Deformity Cardiovascular: Rhythm Regular, No Murmur Respiratory: Decreased Breath Sounds, No Rales, No Rhonchi, Wheezing (diffuse scattered wheezing ) Gastrointestinal/Abdominal: Soft, Tenderness, No Distention, No Guarding, No Rebound, Other (Right sided colostomy bag, kiran in place, wound appears clean and dry. No exudates expressed. ) Extremity: Normal ROM, No Tenderness Neurological/Psych: Oriented x3 Gait: Steady ED Course And Treatment - Laboratory Results Result Diagrams: 05/08/17 21:15 05/08/17 21:15 ECG: Interpreted By Me, Viewed By Me ECG Rhythm: Sinus Tachycardia (141), Nonspecific Changes O2 Sat by Pulse Oximetry: 91 (RA) Pulse Ox Interpretation: Abnormal - Radiology CXR: Interpreted by Me, Viewed By Me CXR Interpretation: Yes: COPD, Other (unchnaged from 04/03/17). No: Infiltrates , Fracture, Pnemothorax Critical Care Time - Critical Care Note Total Time (in mins): 30 Documented critical care: time excludes all time spent performing seperately billable procedures. Disposition Discussed With : Hal Garcia Comment: accepted the pt on his service and took over the care at 9:44 PM Doctor Will See Patient In The: ED Counseled Patient/Family Regarding: Studies Performed, Diagnosis - Disposition Disposition: HOSPITALIZED Disposition Time: :22 Condition: GUARDED - Clinical Impression Clinical Impression: COPD exacerbation, Dyspnea, Acute exacerbation of chronic obstructive pulmonary disease (COPD), Abdominal pain - Scribe Statement The provider has reviewed the documentation as recorded by the Scribe Mitali Serrato All medical record entries made by the Kezia were at my direction and personally dictated by me. I have reviewed the chart and agree that the record accurately reflects my personal performance of the history, physical exam, medical decision making, and the department course for this patient. I have also personally directed, reviewed, and agree with the discharge instructions and disposition.
[2017-05-08 21:29] LABS: CHLORIDE 97 mmol/L (98-107); SODIUM 135 mmol/L (132-148)
[2017-05-08 21:30] LABS: POTASSIUM 4.3 mmol/L (3.6-5.2)
[2017-05-08 21:32] LABS: ALB/GLOB RATIO 1.5 (1.0-2.1); ALKALINE PHOSPHATASE 278 U/L (38-126); ALT/SGPT 93 U/L (21-72); AST/SGOT 53 U/L (17-59); BILIRUBIN,TOTAL 0.6 mg/dL (0.2-1.3); BLOOD UREA NITROGEN 8 mg/dL (9-20); CARBON DIOXIDE 22 mmol/L (22-30); GFR AFRICAN-AMERICAN > 60; GLUCOSE,RANDOM 123 mg/dL (75-110); TOTAL PROTEIN 6.7 g/dL (6.3-8.3)
[2017-05-08 21:33] LABS: CALCIUM 9.3 mg/dl (8.6-10.4)
[2017-05-08] MEDS ORDERED: Piperacillin/Tazobact 3.375 gm 100 ML IVPB STA (21:34)
[2017-05-08] MEDS ORDERED: Vancomycin 1 GM 1 GM/250 ML BAG IVPB STA (21:38)
[2017-05-08] MEDS ORDERED: Piperacillin/Tazobact 3.375 gm 100 ML IVPB ONE (21:38)
[2017-05-08 21:40] LABS: INR 1.8
[2017-05-08] MEDS ORDERED: Vancomycin 1 GM 1 GM/250 ML BAG IVPB ONE (22:14)
[2017-05-09] MEDS ORDERED: Magnesium Hydroxide Susp 30 ml UD PO PRN (00:24)
[2017-05-09] MEDS ORDERED: BUDESONIDE 1 MG IH SCH (00:30)
[2017-05-09] MEDS: guaiFENesin 600 mg ER Tab PO SCH ×3 (00:43→18:41)
[2017-05-09] MEDS: metroNIDAZOLE IV 500 mg/100 ml 500 MG/100 ML BAG IVPB SCH ×4 (00:50→21:25)
[2017-05-09] MEDS: oxyCODONE 5 mg Immediate Release Tab PO PRN ×2 (01:34→21:40)
[2017-05-09] MEDS: Albuterol-Ipratrop 3 mg / 0.5 (3 ml) UD INH SCH ×4 (02:20→19:21)
--- NOTE | 2017-05-09 05:07 | CP.PCM.CON ---
History of Present Illness - History of Present Illness History of Present Illness: General Surgery - Dr. Nieto 67yo M w/ hx of COPD, DM, Colon CA s/p LAR w/ ileostomy 03/27/17, admitted to the hospital for COPD exacerbation. Surgery is consulted for Ileostomy. Pt complains mostly of respiratory symptoms but states that he's currently comfortable on the BiPap. He admits to some mild abdominal pain in the LLQ which has been going on for 2-3 days intermittently. Pt also complains that ileostomy has been leaking and the bags are not fitting properly. Otherwise pt denies any complaints. He denies any N/V and has been tolerating PO. Admits to F/C and SOB. PMH: COPD, Dm, COlon CA PSH: LAR w/ ileostomy 03/27/17, Cardiac cath w/o stents ALL: Acetaminophen, IV Contrast Review of Systems - Review of Systems All systems: reviewed and no additional remarkable complaints except (as per HPI ) Past Patient History - Infectious Disease Hx of Infectious Diseases: None - Past Medical History & Family History Past Medical History?: Yes - Past Social History Smoking Status: Former Smoker - CARDIAC Hx Congestive Heart Failure: Yes Hx Hypercholesterolemia: Yes Hx Hypertension: Yes - PULMONARY Hx Asthma: Yes Hx Bronchitis: Yes Hx Chronic Obstructive Pulmonary Disease (COPD): Yes Hx Emphysema: Yes Hx Pneumonia: Yes Hx Sleep Apnea: Yes - NEUROLOGICAL Hx Neurological Disorder: No - HEENT Hx HEENT Problems: Yes Hx Cataracts: Yes (left cataract removed, r cataract) Other/Comment: wears eyeglasses for distance - RENAL Hx Chronic Kidney Disease: Yes - ENDOCRINE/METABOLIC Hx Endocrine Disorders: Yes Hx Diabetes Mellitus Type 2: Yes - HEMATOLOGICAL/ONCOLOGICAL Hx Blood Disorders: Yes Other/Comment: intestinal ademona - INTEGUMENTARY Hx Dermatological Problems: No - MUSCULOSKELETAL/RHEUMATOLOGICAL Hx Arthritis: Yes (BACK; KNEES) - GASTROINTESTINAL Hx Gastrointestinal Disorders: Yes Hx Bowel Surgery: Yes Hx Gastritis: No Hx Ileostomy: Yes - PSYCHIATRIC Hx Anxiety: Yes Hx Substance Use: No - SURGICAL HISTORY Hx Surgeries: Yes Hx Cardiac Catheterization: Yes (11/2015) Other/Comment: colon resection with right ileostomy - ANESTHESIA Hx Anesthesia: No Hx Anesthesia Reactions: No (pt dont know. aware) Hx Malignant Hyperthermia: No Meds Allergies/Adverse Reactions: Allergies Allergy/AdvReac Type Severity Reaction Status Date / Time acetaminophen [From Tylenol] Allergy RASH Verified 05/08/17 20:54 FISH Allergy SWELLING Verified 05/08/17 20:54 shrimp Allergy SHORTNESS Verified 05/08/17 20:54 OF BREATH IV dye Allergy ANAPHYLAXIS Uncoded 05/08/17 20:54 - Medications Medications: Current Medications Albuterol/Ipratropium (Duoneb 3 Mg/0.5 Mg (3 Ml) Ud) 3 ml INH RQ6 [facility] Last Admin: 05/09/17 02:20 Dose: 3 ml Alprazolam (Xanax) 0.5 mg PO Q12 [facility] Stop: 05/16/17 00:31 Last Admin: 05/09/17 00:43 Dose: Not Given Guaifenesin (Mucinex La) 600 mg PO BID [facility] Last Admin: 05/09/17 00:43 Dose: Not Given Home Med (Arformoterol [Brovana]) 15 mcg IH Q12 [facility] Home Med (Budesonide [Pulmicort]) 1 mg IH Q12 [facility] Last Admin: 05/09/17 00:43 Dose: Not Given Home Med (Multivit,Iron,Min 5/Folic Acid [Strovite Forte Caplet]) 1 each PO DAILY [facility] Metronidazole (Flagyl) 500 mg in 100 mls @ 100 mls/hr IVPB Q8 [facility] Last Admin: 05/09/17 00:50 Dose: 100 mls/hr Ceftriaxone Sodium 1 gm/ (Sodium Chloride) 100 mls @ 100 mls/hr IVPB DAILY [facility] Insulin Aspart (Novolog) 0 unit SC ACHS [facility] PRN Reason: Protocol Magnesium Hydroxide (Milk Of Magnesia) 30 ml PO DAILY PRN PRN Reason: Constipation Metformin HCl (Glucophage) 1,000 mg PO BID [facility] Methylprednisolone (Solu-Medrol) 60 mg IV Q12 [facility] Montelukast Sodium (Singulair) 10 mg PO HS [facility] Oxycodone HCl (Oxycodone Immediate Release Tab) 5 mg PO Q6 PRN PRN Reason: Pain, moderate (4-7) Last Admin: 05/09/17 01:34 Dose: 5 mg Roflumilast (Daliresp) 500 mcg PO DAILY [facility] Fluticasone/Salmeterol (Advair Diskus 250/50) 1 puff INH RBID [facility] Warfarin Sodium (Coumadin) 3 mg PO 1800 [facility] Physical Exam - Constitutional Appears: No Acute Distress - Head Exam Head Exam: ATRAUMATIC, NORMAL INSPECTION, NORMOCEPHALIC - Eye Exam Eye Exam: Normal appearance - Respiratory Exam Respiratory Exam: NORMAL BREATHING PATTERN. absent: Respiratory Distress Additional comments: On Bipap - GI/Abdominal Exam GI & Abdominal Exam: Soft, Tenderness (mild tpp in the LLQ, No gaurding no rebound). absent: Distended, Guarding, Hernia, Rebound, Rigid Additional comments: Incision well healed with kiran and retention sutures in place Bottom portion of incision open and packed with wet-to-dry dressing, granulating in and healing well Ileostomy bag with liquid output, currently leaking around the right side of the bag. - Neurological Exam Neurological exam: Alert, Oriented x3 - Psychiatric Exam Psychiatric exam: Normal Affect, Normal Mood - Skin Skin Exam: Dry, Intact Results - Vital Signs Recent Vital Signs: Last Vital Signs Temp 97.1 F L 05/09/17 04:38 Pulse 68 05/09/17 04:38 Resp 20 05/09/17 04:38 BP 114/67 05/09/17 04:38 Pulse Ox 100 05/09/17 04:38 - Labs Result Diagrams: 05/08/17 21:15 05/08/17 21:15 Labs: Laboratory Results - last 24 hr 05/08/17 05/08/17 05/08/17 21:15 21:15 21:15 WBC 18.2 H D RBC 4.91 Hgb 11.5 L Hct 35.2 MCV 71.6 L MCH 23.4 L MCHC 32.6 L RDW 25.9 H Plt Count 386 D MPV 8.5 Neut % (Auto) 80.4 H Lymph % (Auto) 11.2 L [place] % (Auto) 7.5 Eos % (Auto) 0.1 Baso % (Auto) 0.8 Neut # 14.6 H Lymph # 2.0 [place] # 1.4 H Eos # 0.0 Baso # 0.2 Differential Comment PT INR APTT pO2 28 L VBG pH 7.43 VBG pCO2 40 VBG HCO3 25.3 VBG Total CO2 27.7 VBG O2 Sat (Calc) 55.3 VBG Base Excess 2.0 VBG Potassium 4.3 A-a O2 Difference 122.0 Sodium 132.0 135 Chloride 99.0 97 L Glucose 131 H Lactate 2.2 H FiO2 28.0 Crit Value Called To Dr. harris Crit Value Called By Jaye rt Crit Value Read Back Y Blood Gas Notified Time 2118 Potassium 4.3 Carbon Dioxide 22 Anion Gap 20 BUN 8 L Creatinine 0.5 L Est GFR ( Amer) > 60 Est GFR (Non-Af Amer) > 60 Random Glucose 123 H Calcium 9.3 Total Bilirubin 0.6 AST 53 ALT 93 H D Alkaline Phosphatase 278 H D Total Protein 6.7 Albumin 4.0 Globulin 2.7 Albumin/Globulin Ratio 1.5 Venous Blood Potassium 4.3 05/08/17 21:24 WBC RBC Hgb Hct MCV MCH MCHC RDW Plt Count MPV Neut % (Auto) Lymph % (Auto) [place] % (Auto) Eos % (Auto) Baso % (Auto) Neut # Lymph # [place] # Eos # Baso # Differential Comment PT 20.4 H INR 1.8 APTT 33 pO2 VBG pH VBG pCO2 VBG HCO3 VBG Total CO2 VBG O2 Sat (Calc) VBG Base Excess VBG Potassium A-a O2 Difference Sodium Chloride Glucose Lactate FiO2 Crit Value Called To Crit Value Called By Crit Value Read Back Blood Gas Notified Time Potassium Carbon Dioxide Anion Gap BUN Creatinine Est GFR ( Amer) Est GFR (Non-Af Amer) Random Glucose Calcium Total Bilirubin AST ALT Alkaline Phosphatase Total Protein Albumin Globulin Albumin/Globulin Ratio Venous Blood Potassium Assessment & Plan - Assessment and Plan (Free Text) Assessment: 67 yo M w/ COPD exacerbation, s/p LAR w/ ileostomy in 03/2017 -Will work w/ nursing/wound care to find properly fitting wafer for ileostomy -No signs of any intra-abdominal issues -Wound is healing well, continue wet-to-dry dressings daily -Medical/Pulm management for the COPD DW Dr. Emilia Arroyo PGy3
[2017-05-09] MEDS: (Novolog) Insulin Aspart, Recombinant 100 u/ml 10 ml vial SC SCH ×4 (07:49→22:24)
[2017-05-09] MEDS: Fluticasone-Salmeterol 250-50mcg Diskus INH SCH ×2 (08:50→19:22)
[2017-05-09] MEDS ORDERED: Home Med 1 UNIT (Arformoterol [Brovana] 15 MCG) IH SCH (10:00)
[2017-05-09] MEDS: Multivitamin With Minerals Tab PO SCH (10:32)
--- NOTE | 2017-05-09 12:25 | RAD ---
PROCEDURE: CHEST RADIOGRAPH, 1 VIEW. Technique: Single view portable semi erect @ 21:39. HISTORY: Shortness of breath, COPD. COMPARISON: 04/03/2017. FINDINGS: LUNGS: Clear. PLEURA: No pneumothorax or pleural fluid seen. CARDIOVASCULAR: No radiographic findings to suggest acute or significant cardiovascular disease. OSSEOUS STRUCTURES: No significant abnormalities. VISUALIZED UPPER ABDOMEN: Normal. OTHER FINDINGS: None. IMPRESSION: No significant interval change compared to the prior examination(s).
--- NOTE | 2017-05-09 22:44 | CP.PCM.HP ---
History of Present Illness - History of Present Illness History of Present Illness: CC: COUGH, CONGESTION, SOB 67yo M well known to me w/ hx of advanced end stage COPD,chronic resp failure on home oxygen DM, Colon CA s/p LAR w/ ileostomy 03/27/17, admitted to the hospital for COPD exacerbation.pt is in [facility],where he develpoed hypooxemia nit corrected by supplemental oxygen. Surgery is consulted for Ileostomy.stool positive for guiac but not actively bleding, Pt complains mostly of respiratory symptoms but states that he's currently comfortable on the BiPap. He admits to some mild abdominal pain in the LLQ which has been going on for 2- 3 days intermittently. Pt also complains that ileostomy has been leaking and the bags are not fitting properly. Otherwise pt denies any complaints. He denies any N/V and has been tolerating PO. Admits to F/C and SOB. PMH: COPD, Dm, COlon CA PSH: LAR w/ ileostomy 03/27/17, Cardiac cath w/o stents ALL: Acetaminophen, IV Contrast Present on Admission - Present on Admission Any Indicators Present on Admission: Yes Review of Systems - Review of Systems Systems not reviewed;Unavailable: Acuity of Condition, Respiratory Distress - Constitutional Constitutional: Fatigue, Lethargy, Malaise - EENT Nose/Mouth/Throat: Nasal Congestion - Respiratory Respiratory: Cough, Dyspnea, Wheezing, Chest Congestion, Excessive Mucous Production - Genitourinary Genitourinary: Flank Pain, Urinary Frequency Past Patient History - Infectious Disease Hx of Infectious Diseases: None - Past Medical History & Family History Past Medical History?: Yes - Past Social History Smoking Status: Former Smoker - CARDIAC Hx Congestive Heart Failure: Yes Hx Hypercholesterolemia: Yes Hx Hypertension: Yes - PULMONARY Hx Asthma: Yes Hx Bronchitis: Yes Hx Chronic Obstructive Pulmonary Disease (COPD): Yes Hx Emphysema: Yes Hx Pneumonia: Yes Hx Sleep Apnea: Yes - NEUROLOGICAL Hx Neurological Disorder: No - HEENT Hx HEENT Problems: Yes Hx Cataracts: Yes (left cataract removed, r cataract) Other/Comment: wears eyeglasses for distance - RENAL Hx Chronic Kidney Disease: Yes - ENDOCRINE/METABOLIC Hx Endocrine Disorders: Yes Hx Diabetes Mellitus Type 2: Yes - HEMATOLOGICAL/ONCOLOGICAL Hx Blood Disorders: Yes Other/Comment: intestinal ademona - INTEGUMENTARY Hx Dermatological Problems: No - MUSCULOSKELETAL/RHEUMATOLOGICAL Hx Arthritis: Yes (BACK; KNEES) - GASTROINTESTINAL Hx Gastrointestinal Disorders: Yes Hx Bowel Surgery: Yes Hx Gastritis: No Hx Ileostomy: Yes - PSYCHIATRIC Hx Anxiety: Yes Hx Substance Use: No - SURGICAL HISTORY Hx Surgeries: Yes Hx Cardiac Catheterization: Yes (11/2015) Other/Comment: colon resection with right ileostomy - ANESTHESIA Hx Anesthesia: No Hx Anesthesia Reactions: No (pt dont know. aware) Hx Malignant Hyperthermia: No Meds Allergies/Adverse Reactions: Allergies Allergy/AdvReac Type Severity Reaction Status Date / Time acetaminophen [From Tylenol] Allergy RASH Verified 05/08/17 20:54 FISH Allergy SWELLING Verified 05/08/17 20:54 shrimp Allergy SHORTNESS Verified 05/08/17 20:54 OF BREATH IV dye Allergy ANAPHYLAXIS Uncoded 05/08/17 20:54 Physical Exam - Constitutional Appears: In Acute Distress, Chronically Ill - Eye Exam Eye Exam: EOMI, Normal appearance, PERRL Pupil Exam: NORMAL ACCOMODATION, PERRL - ENT Exam ENT Exam: Mucous Membranes Moist, Normal Exam - Neck Exam Neck exam: Positive for: Normal Inspection Additional comments: USING ACCESSORY MUSCLE FOR RESP - Respiratory Exam Respiratory Exam: Prolonged Expiratory Phase, Rales, Rhonchi, Wheezes Additional comments: barrel shaped chest - Cardiovascular Exam Cardiovascular Exam: Tachycardia, +S1, +S2 Additional comments: on BIPAP - GI/Abdominal Exam GI & Abdominal Exam: Normal Bowel Sounds, Soft, Tenderness Additional comments: illeostomy in place - Rectal Exam Rectal Exam: Deferred - Neurological Exam Neurological exam: Alert, CN II-XII Intact, Oriented x3 - Psychiatric Exam Psychiatric exam: Anxious - Skin Additional comments: dry, bruises, senile turgor Results - Vital Signs Recent Vital Signs: Last Vital Signs Temp 98.3 F 05/09/17 15:21 Pulse 107 H 05/09/17 15:21 Resp 20 05/09/17 15:21 BP 97/62 L 05/09/17 15:21 Pulse Ox 98 05/09/17 15:21 - Labs Result Diagrams: 05/08/17 21:15 05/08/17 21:15 Labs: Laboratory Results - last 24 hr 05/09/17 05/09/17 05/09/17 06:46 13:01 16:50 POC Glucose (mg/dL) 111 H 156 H Stool Occult Blood Positive H 05/09/17 05/09/17 17:25 21:48 POC Glucose (mg/dL) 220 H 106 Stool Occult Blood Assessment & Plan (1) COPD exacerbation Status: Acute Priority: Medium (2) Allergic rhinitis Status: Chronic Priority: Medium (3) Steroid-induced diabetes Status: Chronic (4) Acute and chronic respiratory failure ([id number]) Status: Acute (5) Abdominal pain Status: Acute
[2017-05-10] MEDS: Albuterol-Ipratrop 3 mg / 0.5 (3 ml) UD INH SCH ×4 (01:35→19:35)
[2017-05-10] MEDS: metroNIDAZOLE IV 500 mg/100 ml 500 MG/100 ML BAG IVPB SCH ×3 (05:15→21:08)
[2017-05-10] MEDS: Fluticasone-Salmeterol 250-50mcg Diskus INH SCH ×2 (07:15→20:00)
[2017-05-10] MEDS: (Novolog) Insulin Aspart, Recombinant 100 u/ml 10 ml vial SC SCH ×4 (08:01→21:55)
[2017-05-10 08:16] LABS: BASO # 0.1 K/uL (0.0-0.2); BASO % 0.5 % (0.0-2.0); HEMATOCRIT 32.3 % (35.0-51.0); LYMPH # 1.6 K/uL (1.0-4.3); LYMPH % 11.6 % (20.0-40.0); MEAN CELL VOLUME 71.8 fL (80.0-94.0); MEAN CORPUSCULAR HEMOGLOBIN 23.4 pg (27.0-31.0); MEAN CORPUSCULAR HGB CONC 32.6 g/dL (33.0-37.0); MEAN PLATELET VOLUME 9.1 fL (7.2-11.7); MONO # 0.6 K/uL (0.0-0.8); MONO % 4.5 % (0.0-10.0); RED CELL DISTRIBUTION WIDTH 25.9 % (11.5-14.5); WHITE BLOOD COUNT 14.2 K/uL (4.8-10.8)
[2017-05-10] MEDS: Multivitamin With Minerals Tab PO SCH (09:12)
[2017-05-10] MEDS: guaiFENesin 600 mg ER Tab PO SCH ×2 (09:12→17:38)
[2017-05-10] MEDS: oxyCODONE 5 mg Immediate Release Tab PO PRN ×2 (09:13→16:22)
[2017-05-10 09:22] LABS: CHLORIDE 99 mmol/L (98-107)
[2017-05-10 09:23] LABS: POTASSIUM 4.4 mmol/L (3.6-5.2); SODIUM 139 mmol/L (132-148)
[2017-05-10 09:25] LABS: GFR AFRICAN-AMERICAN > 60
[2017-05-10 09:26] LABS: BLOOD UREA NITROGEN 10 mg/dL (9-20); CALCIUM 9.7 mg/dl (8.6-10.4); CARBON DIOXIDE 23 mmol/L (22-30); GLUCOSE,RANDOM 158 mg/dL (75-110)
--- NOTE | 2017-05-10 11:20 | CP.PCM.PN ---
Subjective - Date & Time of Evaluation Date of Evaluation: 05/10/17 Time of Evaluation: 11:20 - Subjective Subjective: General Surgery Progress Note for Dr. Nieto Patient seen and examined at bedside. No acute event overnight. Patient resting in bed comfortably eating. Pain is well controlled. Patient states he has no complaints today. Denies f/c, cp, sob, n/v/d. Objective - Vital Signs/Intake and Output Vital Signs (last 24 hours): Temp Pulse Resp BP Pulse Ox 97.6 F 112 H 20 99/58 L 99 05/10/17 08:13 05/10/17 08:13 05/10/17 08:13 05/10/17 08:13 05/10/17 08:13 Intake and Output: 05/10/17 05/10/17 06:59 18:59 Intake Total 220 Output Total 1000 Balance -780 - Medications Medications: Current Medications Albuterol/Ipratropium (Duoneb 3 Mg/0.5 Mg (3 Ml) Ud) 3 ml INH RQ6 [facility] Last Admin: 05/10/17 07:17 Dose: 3 ml Alprazolam (Xanax) 0.5 mg PO Q12 [facility] Stop: 05/16/17 00:31 Last Admin: 05/10/17 09:12 Dose: 0.5 mg Budesonide (Pulmicort Respules) 1 mg IH RQ12 [facility] Guaifenesin (Mucinex La) 600 mg PO BID [facility] Last Admin: 05/10/17 09:12 Dose: 600 mg Home Med (Arformoterol [Brovana]) 15 mcg IH Q12 [facility] Metronidazole (Flagyl) 500 mg in 100 mls @ 100 mls/hr IVPB Q8 [facility] Last Admin: 05/10/17 05:15 Dose: 100 mls/hr Ceftriaxone Sodium 1 gm/ (Sodium Chloride) 100 mls @ 100 mls/hr IVPB DAILY [facility] Last Admin: 05/10/17 09:12 Dose: 100 mls/hr Insulin Aspart (Novolog) 0 unit SC ACHS [facility] PRN Reason: Protocol Last Admin: 05/10/17 08:01 Dose: 1 unit Magnesium Hydroxide (Milk Of Magnesia) 30 ml PO DAILY [facility] PRN Reason: Constipation Metformin HCl (Glucophage) 1,000 mg PO BID [facility] Last Admin: 05/10/17 09:12 Dose: 1,000 mg Methylprednisolone (Solu-Medrol) 60 mg IV DAILY [facility] Montelukast Sodium (Singulair) 10 mg PO HS [facility] Last Admin: 05/09/17 21:24 Dose: 10 mg Morphine Sulfate (Morphine) 2 mg IVP Q4 PRN PRN Reason: Pain, severe (8-10) Last Admin: 05/09/17 12:42 Dose: 2 mg Multivitamins/Minerals (Therapeutic-M Tab) 1 tab PO DAILY [facility] Last Admin: 05/10/17 09:12 Dose: 1 tab Oxycodone HCl (Oxycodone Immediate Release Tab) 5 mg PO Q6 [facility]N PRN Reason: Pain, moderate (4-7) Last Admin: 05/10/17 09:13 Dose: 5 mg Roflumilast (Daliresp) 500 mcg PO DAILY [facility] Last Admin: 05/10/17 09:12 Dose: 500 mcg Fluticasone/Salmeterol (Advair Diskus 250/50) 1 puff INH RBID [facility] Last Admin: 05/09/17 19:22 Dose: Not Given - Labs Labs: 05/10/17 08:06 05/10/17 08:06 PT 20.4 SECONDS (9.7-12.2) H 05/08/17 21:24 INR 1.8 05/08/17 21:24 APTT 33 SECONDS (21-34) 05/08/17 21:24 - Constitutional Appears: No Acute Distress - Head Exam Head Exam: ATRAUMATIC, NORMOCEPHALIC - Eye Exam Eye Exam: Normal appearance - ENT Exam ENT Exam: Mucous Membranes Moist - Respiratory Exam Respiratory Exam: NORMAL BREATHING PATTERN - Cardiovascular Exam Cardiovascular Exam: Tachycardia - GI/Abdominal Exam GI & Abdominal Exam: Soft, Tenderness (mild LLQ). absent: Firm, Guarding, Rigid , Rebound Additional comments: Incision well healed with retention sutures in place small openning at lower pole of incision dressings changed by nurse today Ileostomy intact and functioning draining liquid - Extremities Exam Extremities Exam: absent: Calf Tenderness - Neurological Exam Neurological Exam: Alert, Awake, Oriented x3 - Psychiatric Exam Psychiatric exam: Normal Affect, Normal Mood - Skin Skin Exam: Dry, Intact, Warm Assessment and Plan - Assessment and Plan (Free Text) Plan: 67 M s/p LAR with ileostomy in 03/2017 with abdominal pain -CT Abd/Pelvis -IV ABX -Pain Control -Management as per primary -Will DW Dr. Emilia Sherwood PGY1
--- NOTE | 2017-05-10 15:16 | CT ---
PROCEDURE: CT Abdomen and Pelvis without intravenous contrast HISTORY: LLQ pain, s/p LAr, leukocytosis COMPARISON: Comparison is made to the previous study dated 04/16/2017 TECHNIQUE: Axial and reformatted coronal and sagittal CT images of the abdomen and pelvis were obtained without IV or oral contrast administration.. Contrast Dose: 0 Radiation dose: Total exam DLP = 328.61 mGy-cm. This CT exam was performed using one or more of the following dose reduction techniques: Automated exposure control, adjustment of the mA and/or kV according to patient size, and/or use of iterative reconstruction technique. FINDINGS: LOWER THORAX: There are airspace consolidation seen at the left lower lobe and right lung base may represent a pneumonia or less likely atelectasis. The left lower lobe lobe consolidation has air bronchogram at the possibility of pneumonia should be considered. LIVER: Mild hepatomegaly is again noted. No evidence of significant interval change in the liver since the previous exam. Low-attenuation lesion seen at the left liver lobe measures 1.7 centimeter. GALLBLADDER AND BILE DUCTS: Unremarkable. PANCREAS: Unremarkable. No gross lesion or ductal dilatation. SPLEEN: Unremarkable. ADRENALS: Unremarkable. No mass. KIDNEYS AND URETERS: Unremarkable. No hydronephrosis. No solid mass. VASCULATURE: Unremarkable. No aortic aneurysm. BOWEL: Interval resolving of the previously seen dilated small bowel loops. No evidence of bowel obstruction. Again seen are postsurgical changes at the rectum. The large bowel is collapsed. Scattered sigmoid colon diverticulosis are again seen without evidence of diverticulitis. Right lower abdomen ileostomy is again seen APPENDIX: Unremarkable. Normal appendix. PERITONEUM: Unremarkable. No free fluid. No free air. LYMPH NODES: Unremarkable. No enlarged lymph nodes. BLADDER: Unremarkable. REPRODUCTIVE: The prostate is mildly enlarged. BONES: No acute fracture. OTHER FINDINGS: There is again seen heterogeneous pre sacral soft tissue density unchanged since the previous study. IMPRESSION: Bilateral lower lobes left larger than right airspace opacities suspicious for pneumonia especially on the left. Trace bilateral pleural effusions. No evidence of fluid collection in the abdomen and pelvis. Interval resolving of the previously seen dilated small bowel loops. Otherwise no significant interval change in the abdomen and pelvis since the previous exam.
[2017-05-10] MEDS ORDERED: ARFORMOTEROL 15 MCG/2 ML INH SCH (20:00)
[2017-05-10] MEDS ORDERED: Budesonide 0.5 mg/2 ml Inhal Susp UD IH SCH (20:00)
[2017-05-10] MEDS ORDERED: guaiFENesin 100 mg/5 ml Syrup UD PO ONE (21:30)
--- NOTE | 2017-05-10 23:24 | CP.PCM.PN ---
Subjective - Date & Time of Evaluation Date of Evaluation: 05/10/17 Time of Evaluation: 09:20 - Subjective Subjective: Patient seen and examined at bedside. No acute event overnight. Patient resting in bed comfortably eating. Pain is well controlled. Patient states he has no complaints today. Denies f/c, cp, sob, n/v/d. Objective - Vital Signs/Intake and Output Vital Signs (last 24 hours): Temp Pulse Resp BP Pulse Ox 97.7 F 94 H 18 106/65 96 05/10/17 15:25 05/10/17 15:25 05/10/17 15:25 05/10/17 15:25 05/10/17 15:25 Intake and Output: 05/10/17 05/11/17 18:59 06:59 Intake Total 440 Balance 440 - Medications Medications: Current Medications Albuterol/Ipratropium (Duoneb 3 Mg/0.5 Mg (3 Ml) Ud) 3 ml INH RQ6 [facility] Last Admin: 05/10/17 19:35 Dose: 3 ml Alprazolam (Xanax) 0.5 mg PO Q12 [facility] Stop: 05/16/17 00:31 Last Admin: 05/10/17 21:07 Dose: 0.5 mg Budesonide (Pulmicort Respules) 1 mg IH RQ12 [facility] Guaifenesin (Mucinex La) 600 mg PO BID [facility] Last Admin: 05/10/17 17:38 Dose: 600 mg Home Med (Patient's Own Inhalation Solution) 2 ml INH RQ12 [facility] Metronidazole (Flagyl) 500 mg in 100 mls @ 100 mls/hr IVPB Q8 [facility] Last Admin: 05/10/17 21:08 Dose: 100 mls/hr Ceftriaxone Sodium 1 gm/ (Sodium Chloride) 100 mls @ 100 mls/hr IVPB DAILY [facility] Last Admin: 05/10/17 09:12 Dose: 100 mls/hr Insulin Aspart (Novolog) 0 unit SC ACHS [facility] PRN Reason: Protocol Last Admin: 05/10/17 21:55 Dose: Not Given Magnesium Hydroxide (Milk Of Magnesia) 30 ml PO DAILY PRN PRN Reason: Constipation Metformin HCl (Glucophage) 1,000 mg PO BID [facility] Last Admin: 05/10/17 17:38 Dose: 1,000 mg Methylprednisolone (Solu-Medrol) 60 mg IV DAILY [facility] Montelukast Sodium (Singulair) 10 mg PO HS [facility] Last Admin: 05/10/17 21:07 Dose: 10 mg Morphine Sulfate (Morphine) 2 mg IVP Q4 PRN PRN Reason: Pain, severe (8-10) Last Admin: 05/09/17 12:42 Dose: 2 mg Multivitamins/Minerals (Therapeutic-M Tab) 1 tab PO DAILY [facility] Last Admin: 05/10/17 09:12 Dose: 1 tab Oxycodone HCl (Oxycodone Immediate Release Tab) 5 mg PO Q6 PRN PRN Reason: Pain, moderate (4-7) Last Admin: 05/10/17 16:22 Dose: 5 mg Roflumilast (Daliresp) 500 mcg PO DAILY [facility] Last Admin: 05/10/17 09:12 Dose: 500 mcg Fluticasone/Salmeterol (Advair Diskus 250/50) 1 puff INH RBID [facility] Last Admin: 05/10/17 20:00 Dose: Not Given - Labs Labs: 05/10/17 08:06 05/10/17 08:06 PT 20.4 SECONDS (9.7-12.2) H 05/08/17 21:24 INR 1.8 05/08/17 21:24 APTT 33 SECONDS (21-34) 05/08/17 21:24 Assessment and Plan (1) COPD exacerbation Status: Acute (2) Allergic rhinitis Status: Chronic (3) Steroid-induced diabetes Status: Chronic (4) Acute and chronic respiratory failure ([id number]) Status: Acute (5) Abdominal pain Status: Acute
[2017-05-11] MEDS: Albuterol-Ipratrop 3 mg / 0.5 (3 ml) UD INH SCH ×4 (01:13→19:33)
[2017-05-11] MEDS: metroNIDAZOLE IV 500 mg/100 ml 500 MG/100 ML BAG IVPB SCH ×3 (05:12→21:26)
[2017-05-11] MEDS: (Novolog) Insulin Aspart, Recombinant 100 u/ml 10 ml vial SC SCH ×4 (07:50→22:10)
[2017-05-11] MEDS: Budesonide 0.5 mg/2 ml Inhal Susp UD IH SCH ×2 (08:22→19:34)
--- NOTE | 2017-05-11 08:33 | CP.PCM.PN ---
Subjective - Date & Time of Evaluation Date of Evaluation: 05/11/17 Time of Evaluation: 06:15 - Subjective Subjective: Gen Sx: Dr Nieto Pt S&E this morning. NAEO. States having increased coughing which exacerbates his stomach pain. Denies n/v, f/c. Tolerating diet. Having bowel movements. CT scan shows no acute pathology in abdomen to account for pain, likely secondary to pneumonia and retention sutures. Objective - Vital Signs/Intake and Output Vital Signs (last 24 hours): Temp Pulse Resp BP Pulse Ox 97.2 F L 95 H 20 116/72 97 05/10/17 23:40 05/11/17 08:22 05/11/17 05:21 05/11/17 05:21 05/10/17 23:40 Intake and Output: 05/11/17 05/11/17 06:59 18:59 Intake Total 200 Output Total 550 Balance -350 - Medications Medications: Current Medications Albuterol/Ipratropium (Duoneb 3 Mg/0.5 Mg (3 Ml) Ud) 3 ml INH RQ6 [facility] Last Admin: 05/11/17 08:22 Dose: 3 ml Alprazolam (Xanax) 0.5 mg PO Q12 [facility] Stop: 05/16/17 00:31 Last Admin: 05/10/17 21:07 Dose: 0.5 mg Budesonide (Pulmicort Respules) 1 mg IH RQ12 [facility] Last Admin: 05/11/17 08:22 Dose: 1 mg Guaifenesin (Mucinex La) 600 mg PO BID [facility] Last Admin: 05/10/17 17:38 Dose: 600 mg Home Med (Patient's Own Inhalation Solution) 2 ml INH RQ12 [facility] Metronidazole (Flagyl) 500 mg in 100 mls @ 100 mls/hr IVPB Q8 [facility] Last Admin: 05/11/17 05:12 Dose: 100 mls/hr Ceftriaxone Sodium 1 gm/ (Sodium Chloride) 100 mls @ 100 mls/hr IVPB DAILY [facility] Last Admin: 05/10/17 09:12 Dose: 100 mls/hr Insulin Aspart (Novolog) 0 unit SC ACHS [facility] PRN Reason: Protocol Last Admin: 05/11/17 07:50 Dose: Not Given Magnesium Hydroxide (Milk Of Magnesia) 30 ml PO DAILY PRN PRN Reason: Constipation Metformin HCl (Glucophage) 1,000 mg PO BID [facility] Last Admin: 05/10/17 17:38 Dose: 1,000 mg Methylprednisolone (Solu-Medrol) 60 mg IV DAILY [facility] Montelukast Sodium (Singulair) 10 mg PO HS [facility] Last Admin: 05/10/17 21:07 Dose: 10 mg Morphine Sulfate (Morphine) 2 mg IVP Q4 PRN PRN Reason: Pain, severe (8-10) Last Admin: 05/11/17 05:25 Dose: 2 mg Multivitamins/Minerals (Therapeutic-M Tab) 1 tab PO DAILY [facility] Last Admin: 05/10/17 09:12 Dose: 1 tab Oxycodone HCl (Oxycodone Immediate Release Tab) 5 mg PO Q6 PRN PRN Reason: Pain, moderate (4-7) Last Admin: 05/10/17 16:22 Dose: 5 mg Roflumilast (Daliresp) 500 mcg PO DAILY [facility] Last Admin: 05/10/17 09:12 Dose: 500 mcg Fluticasone/Salmeterol (Advair Diskus 250/50) 1 puff INH RBID [facility] Last Admin: 05/10/17 20:00 Dose: Not Given - Labs Labs: 05/10/17 08:06 05/10/17 08:06 PT 20.4 SECONDS (9.7-12.2) H 05/08/17 21:24 INR 1.8 05/08/17 21:24 APTT 33 SECONDS (21-34) 05/08/17 21:24 - Constitutional Appears: Non-toxic, No Acute Distress - ENT Exam ENT Exam: Normal Exam - Respiratory Exam Respiratory Exam: NORMAL BREATHING PATTERN. absent: Accessory Muscle Use, Respiratory Distress - Cardiovascular Exam Cardiovascular Exam: absent: Tachycardia - GI/Abdominal Exam GI & Abdominal Exam: Soft, Tenderness (secondary to retention sutures ). absent : Distended, Firm - Neurological Exam Neurological Exam: Alert, Awake, Oriented x3 - Psychiatric Exam Psychiatric exam: Normal Affect, Normal Mood - Skin Skin Exam: Normal Color, Warm Assessment and Plan - Assessment and Plan (Free Text) Assessment: 67M admitted for pneumonia - sx consulted for management of abdominal wound Plan: abdominal wound healing well medical mgmt of pneumonia per primary care doctor will remove retention sutures prior to discharge no further intervention planned d/w Dr Emilia Mcmullen, PGY3
[2017-05-11] MEDS: ARFORMOTEROL 15 MCG/2 ML INH SCH (08:38)
[2017-05-11] MEDS: Fluticasone-Salmeterol 250-50mcg Diskus INH SCH ×2 (09:07→19:33)
[2017-05-11] MEDS: Multivitamin With Minerals Tab PO SCH (10:05)
[2017-05-11] MEDS: guaiFENesin 600 mg ER Tab PO SCH ×2 (10:06→18:20)
[2017-05-11] MEDS: oxyCODONE 5 mg Immediate Release Tab PO PRN ×2 (10:21→21:32)
[2017-05-11] MEDS: Promethazine/Cod 6.25mg-10mg/5ml Syr UD PO PRN ×2 (13:56→21:27)
--- NOTE | 2017-05-11 21:12 | CP.PCM.CON ---
Past Patient History - Infectious Disease Hx of Infectious Diseases: None - Past Medical History & Family History Past Medical History?: Yes - Past Social History Smoking Status: Former Smoker - CARDIAC Hx Congestive Heart Failure: Yes Hx Hypercholesterolemia: Yes Hx Hypertension: Yes - PULMONARY Hx Asthma: Yes Hx Bronchitis: Yes Hx Chronic Obstructive Pulmonary Disease (COPD): Yes Hx Emphysema: Yes Hx Pneumonia: Yes Hx Sleep Apnea: Yes - NEUROLOGICAL Hx Neurological Disorder: No - HEENT Hx HEENT Problems: Yes Hx Cataracts: Yes (left cataract removed, r cataract) Other/Comment: wears eyeglasses for distance - RENAL Hx Chronic Kidney Disease: Yes - ENDOCRINE/METABOLIC Hx Endocrine Disorders: Yes Hx Diabetes Mellitus Type 2: Yes - HEMATOLOGICAL/ONCOLOGICAL Hx Blood Disorders: Yes Other/Comment: intestinal ademona - INTEGUMENTARY Hx Dermatological Problems: No - MUSCULOSKELETAL/RHEUMATOLOGICAL Hx Arthritis: Yes (BACK; KNEES) - GASTROINTESTINAL Hx Gastrointestinal Disorders: Yes Hx Bowel Surgery: Yes Hx Gastritis: No Hx Ileostomy: Yes - PSYCHIATRIC Hx Anxiety: Yes Hx Substance Use: No - SURGICAL HISTORY Hx Surgeries: Yes Hx Cardiac Catheterization: Yes (11/2015) Other/Comment: colon resection with right ileostomy - ANESTHESIA Hx Anesthesia: No Hx Anesthesia Reactions: No (pt dont know. aware) Hx Malignant Hyperthermia: No Meds Allergies/Adverse Reactions: Allergies Allergy/AdvReac Type Severity Reaction Status Date / Time acetaminophen [From Tylenol] Allergy RASH Verified 05/08/17 20:54 FISH Allergy SWELLING Verified 05/08/17 20:54 shrimp Allergy SHORTNESS Verified 05/08/17 20:54 OF BREATH IV dye Allergy ANAPHYLAXIS Uncoded 05/08/17 20:54 - Medications Medications: Current Medications Albuterol/Ipratropium (Duoneb 3 Mg/0.5 Mg (3 Ml) Ud) 3 ml INH RQ6 [facility] Last Admin: 05/11/17 19:33 Dose: 3 ml Alprazolam (Xanax) 0.5 mg PO Q12 [facility] Stop: 05/16/17 00:31 Last Admin: 05/11/17 10:05 Dose: 0.5 mg Budesonide (Pulmicort Respules) 1 mg IH RQ12 [facility] Last Admin: 05/11/17 19:34 Dose: 1 mg Guaifenesin (Mucinex La) 600 mg PO BID [facility] Last Admin: 05/11/17 18:20 Dose: 600 mg Home Med (Patient's Own Inhalation Solution) 2 ml INH RQ12 [facility] Last Admin: 05/11/17 08:38 Dose: 2 ml Metronidazole (Flagyl) 500 mg in 100 mls @ 100 mls/hr IVPB Q8 [facility] Last Admin: 05/11/17 13:59 Dose: 100 mls/hr Ceftriaxone Sodium 1 gm/ (Sodium Chloride) 100 mls @ 100 mls/hr IVPB DAILY [facility] Last Admin: 05/11/17 10:04 Dose: 100 mls/hr Insulin Aspart (Novolog) 0 unit SC ACHS [facility] PRN Reason: Protocol Last Admin: 05/11/17 18:19 Dose: 2 unit Magnesium Hydroxide (Milk Of Magnesia) 30 ml PO DAILY PRN PRN Reason: Constipation Metformin HCl (Glucophage) 1,000 mg PO BID [facility] Last Admin: 05/11/17 18:00 Dose: Not Given Methylprednisolone (Solu-Medrol) 60 mg IV DAILY [facility] Last Admin: 05/11/17 10:05 Dose: 60 mg Montelukast Sodium (Singulair) 10 mg PO HS [facility] Last Admin: 05/10/17 21:07 Dose: 10 mg Morphine Sulfate (Morphine) 2 mg IVP Q4 PRN PRN Reason: Pain, severe (8-10) Last Admin: 05/11/17 17:32 Dose: 2 mg Multivitamins/Minerals (Therapeutic-M Tab) 1 tab PO DAILY [facility] Last Admin: 05/11/17 10:05 Dose: 1 tab Oxycodone HCl (Oxycodone Immediate Release Tab) 5 mg PO Q6 PRN PRN Reason: Pain, moderate (4-7) Last Admin: 05/11/17 10:21 Dose: 5 mg Promethazine HCl/Codeine (Phenergan/Codeine Oral Syrup) 5 ml PO Q8 PRN PRN Reason: Cough Last Admin: 05/11/17 13:56 Dose: 5 ml Roflumilast (Daliresp) 500 mcg PO DAILY [facility] Last Admin: 05/11/17 10:06 Dose: 500 mcg Fluticasone/Salmeterol (Advair Diskus 250/50) 1 puff INH RBID [facility] Last Admin: 05/11/17 19:33 Dose: 1 puff Results - Vital Signs Recent Vital Signs: Last Vital Signs Temp 98 F 05/11/17 07:45 Pulse 95 H 05/11/17 08:22 Resp 18 05/11/17 07:45 BP 107/60 05/11/17 07:45 Pulse Ox 97 05/11/17 07:45 - Labs Result Diagrams: 05/10/17 08:06 05/10/17 08:06 Labs: Laboratory Results - last 24 hr 05/10/17 05/11/17 05/11/17 21:45 07:07 11:43 POC Glucose (mg/dL) 128 H 87 116 H 05/11/17 17:17 POC Glucose (mg/dL) 205 H
--- NOTE | 2017-05-11 22:16 | CP.PCM.PN ---
Subjective - Date & Time of Evaluation Date of Evaluation: 05/11/17 Time of Evaluation: 21:00 - Subjective Subjective: Pt seen and evalauted at bedside, is less short of breath, less tacycardic, he uses BIPAP on and off, he is for suture removal tommorow morning,he denies any nausea/vomitting. he is tolerating diet Objective - Vital Signs/Intake and Output Vital Signs (last 24 hours): Temp Pulse Resp BP Pulse Ox 98.4 F 78 18 109/68 98 05/11/17 17:00 05/11/17 21:59 05/11/17 17:00 05/11/17 17:00 05/11/17 17:00 Intake and Output: 05/11/17 05/12/17 18:59 06:59 Intake Total 740 Output Total 900 275 Balance -160 -275 - Medications Medications: Current Medications Albuterol/Ipratropium (Duoneb 3 Mg/0.5 Mg (3 Ml) Ud) 3 ml INH RQ6 [facility] Last Admin: 05/11/17 19:33 Dose: 3 ml Alprazolam (Xanax) 0.5 mg PO Q12 [facility] Stop: 05/16/17 00:31 Last Admin: 05/11/17 21:27 Dose: 0.5 mg Budesonide (Pulmicort Respules) 1 mg IH RQ12 [facility] Last Admin: 05/11/17 19:34 Dose: 1 mg Guaifenesin (Mucinex La) 600 mg PO BID [facility] Last Admin: 05/11/17 18:20 Dose: 600 mg Home Med (Patient's Own Inhalation Solution) 2 ml INH RQ12 [facility] Last Admin: 05/11/17 08:38 Dose: 2 ml Metronidazole (Flagyl) 500 mg in 100 mls @ 100 mls/hr IVPB Q8 [facility] Last Admin: 05/11/17 21:26 Dose: 100 mls/hr Ceftriaxone Sodium 1 gm/ (Sodium Chloride) 100 mls @ 100 mls/hr IVPB DAILY [facility] Last Admin: 05/11/17 10:04 Dose: 100 mls/hr Insulin Aspart (Novolog) 0 unit SC ACHS [facility] PRN Reason: Protocol Last Admin: 05/11/17 22:10 Dose: Not Given Magnesium Hydroxide (Milk Of Magnesia) 30 ml PO DAILY PRN PRN Reason: Constipation Metformin HCl (Glucophage) 1,000 mg PO BID [facility] Last Admin: 05/11/17 18:00 Dose: Not Given Methylprednisolone (Solu-Medrol) 60 mg IV DAILY [facility] Last Admin: 05/11/17 10:05 Dose: 60 mg Montelukast Sodium (Singulair) 10 mg PO HS [facility] Last Admin: 05/11/17 21:27 Dose: 10 mg Morphine Sulfate (Morphine) 2 mg IVP Q4 PRN PRN Reason: Pain, severe (8-10) Last Admin: 05/11/17 17:32 Dose: 2 mg Multivitamins/Minerals (Therapeutic-M Tab) 1 tab PO DAILY [facility] Last Admin: 05/11/17 10:05 Dose: 1 tab Oxycodone HCl (Oxycodone Immediate Release Tab) 5 mg PO Q6 PRN PRN Reason: Pain, moderate (4-7) Last Admin: 05/11/17 21:32 Dose: 5 mg Promethazine HCl/Codeine (Phenergan/Codeine Oral Syrup) 5 ml PO Q8 PRN PRN Reason: Cough Last Admin: 05/11/17 21:27 Dose: 5 ml Roflumilast (Daliresp) 500 mcg PO DAILY [facility] Last Admin: 05/11/17 10:06 Dose: 500 mcg Fluticasone/Salmeterol (Advair Diskus 250/50) 1 puff INH RBID [facility] Last Admin: 05/11/17 19:33 Dose: 1 puff - Labs Labs: 05/10/17 08:06 05/10/17 08:06 PT 20.4 SECONDS (9.7-12.2) H 05/08/17 21:24 INR 1.8 05/08/17 21:24 APTT 33 SECONDS (21-34) 05/08/17 21:24 - Constitutional Appears: No Acute Distress - Head Exam Head Exam: ATRAUMATIC, NORMAL INSPECTION, NORMOCEPHALIC - Eye Exam Eye Exam: EOMI, Normal appearance, PERRL Pupil Exam: NORMAL ACCOMODATION, PERRL - ENT Exam ENT Exam: Mucous Membranes Moist, Normal Exam - Respiratory Exam Respiratory Exam: Decreased Breath Sounds, Rhonchi - Cardiovascular Exam Cardiovascular Exam: Tachycardia, +S1, +S2 - GI/Abdominal Exam GI & Abdominal Exam: Soft, Normal Bowel Sounds. absent: Tenderness Additional comments: post op - Neurological Exam Neurological Exam: Alert, Awake, CN II-XII Intact, Normal Gait, Oriented x3 Assessment and Plan (1) COPD exacerbation Status: Acute (2) Allergic rhinitis Status: Chronic (3) Steroid-induced diabetes Status: Chronic (4) Acute and chronic respiratory failure ([id number]) Status: Acute (5) Abdominal pain Status: Acute (6) S/P colon resection Assessment & Plan: pt has ileostomy in place, is for suture removal tommorow morning Status: Acute
[2017-05-12] MEDS: Albuterol-Ipratrop 3 mg / 0.5 (3 ml) UD INH SCH ×4 (01:24→19:45)
[2017-05-12] MEDS: metroNIDAZOLE IV 500 mg/100 ml 500 MG/100 ML BAG IVPB SCH ×3 (05:26→21:25)
[2017-05-12 07:17] LABS: BASO # 0.1 K/uL (0.0-0.2); BASO % 0.7 % (0.0-2.0); EOS # 0.1 K/uL (0.0-0.7); EOS % 0.7 % (0.0-4.0); HEMATOCRIT 31.6 % (35.0-51.0); LYMPH # 1.9 K/uL (1.0-4.3); LYMPH % 16.1 % (20.0-40.0); MEAN CORPUSCULAR HEMOGLOBIN 23.7 pg (27.0-31.0); MEAN CORPUSCULAR HGB CONC 32.9 g/dL (33.0-37.0); MEAN PLATELET VOLUME 8.7 fL (7.2-11.7); MONO # 0.9 K/uL (0.0-0.8); MONO % 7.7 % (0.0-10.0); RED CELL DISTRIBUTION WIDTH 25.5 % (11.5-14.5); WHITE BLOOD COUNT 11.9 K/uL (4.8-10.8)
[2017-05-12] MEDS: ARFORMOTEROL 15 MCG/2 ML INH SCH (07:17)
[2017-05-12] MEDS: Budesonide 0.5 mg/2 ml Inhal Susp UD IH SCH ×3 (07:18→19:48)
[2017-05-12] MEDS: Fluticasone-Salmeterol 250-50mcg Diskus INH SCH ×2 (07:18→19:45)
[2017-05-12 08:08] LABS: CHLORIDE 103 mmol/L (98-107); SODIUM 141 mmol/L (132-148)
[2017-05-12 08:09] LABS: POTASSIUM 5.7 mmol/L (3.6-5.2)
[2017-05-12 08:11] LABS: GFR AFRICAN-AMERICAN > 60
[2017-05-12 08:12] LABS: BLOOD UREA NITROGEN 9 mg/dL (9-20); CALCIUM 9.1 mg/dl (8.6-10.4); CARBON DIOXIDE 22 mmol/L (22-30); GLUCOSE,RANDOM 109 mg/dL (75-110)
[2017-05-12] MEDS: (Novolog) Insulin Aspart, Recombinant 100 u/ml 10 ml vial SC SCH ×4 (08:30→21:29)
[2017-05-12] MEDS: Multivitamin With Minerals Tab PO SCH (09:58)
[2017-05-12] MEDS: guaiFENesin 600 mg ER Tab PO SCH ×2 (09:58→18:10)
[2017-05-12] MEDS: Promethazine/Cod 6.25mg-10mg/5ml Syr UD PO PRN ×2 (10:05→22:32)
[2017-05-12] MEDS: oxyCODONE 5 mg Immediate Release Tab PO PRN ×2 (14:36→23:05)
--- NOTE | 2017-05-12 14:37 | RAD ---
PROCEDURE: Radiographs of the Right Shoulder HISTORY: pain, r/o fx COMPARISON: No prior. FINDINGS: BONES: No evidence of acute displaced fracture nor dislocation JOINTS: No evidence of dislocation. 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 SOFT TISSUES: Normal. OTHER FINDINGS: None. IMPRESSION: No acute displaced fracture nor dislocation. Mild to moderate DJD right acromioclavicular and glenohumeral joints.
[2017-05-12 15:03] LABS: CHLORIDE 102 mmol/L (98-107); POTASSIUM 3.6 mmol/L (3.6-5.2); SODIUM 139 mmol/L (132-148)
[2017-05-12 15:06] LABS: BLOOD UREA NITROGEN 8 mg/dL (9-20); CARBON DIOXIDE 22 mmol/L (22-30); GFR AFRICAN-AMERICAN > 60
[2017-05-12 15:07] LABS: CALCIUM 9.3 mg/dl (8.6-10.4); GLUCOSE,RANDOM 203 mg/dL (75-110)
--- NOTE | 2017-05-12 15:12 | CP.PCM.PN ---
Subjective - Date & Time of Evaluation Date of Evaluation: 05/12/17 Time of Evaluation: 10:30 - Subjective Subjective: General Surgery- Dr. Nieto Pt S&E this morning. NAEO. states feeling more tired and run down today than previously. Denies n/v, f/c. Tolerating diet. Having bowel movements. Objective - Vital Signs/Intake and Output Vital Signs (last 24 hours): Temp Pulse Resp BP Pulse Ox 97.9 F 106 H 20 100/66 93 L 05/12/17 09:56 05/12/17 14:34 05/12/17 09:56 05/12/17 14:34 05/12/17 09:56 Intake and Output: 05/12/17 05/12/17 06:59 18:59 Output Total 275 Balance -275 - Medications Medications: Current Medications Albuterol/Ipratropium (Duoneb 3 Mg/0.5 Mg (3 Ml) Ud) 3 ml INH RQ6 [facility] Last Admin: 05/12/17 13:25 Dose: 3 ml Alprazolam (Xanax) 0.5 mg PO Q12 [facility] Stop: 05/16/17 00:31 Last Admin: 05/12/17 09:58 Dose: 0.5 mg Budesonide (Pulmicort Respules) 1 mg IH RQ12 [facility] Last Admin: 05/12/17 07:19 Dose: 0.5 mg Guaifenesin (Mucinex La) 600 mg PO BID [facility] Last Admin: 05/12/17 09:58 Dose: 600 mg Home Med (Patient's Own Inhalation Solution) 2 ml INH RQ12 [facility] Last Admin: 05/12/17 07:17 Dose: 2 ml Metronidazole (Flagyl) 500 mg in 100 mls @ 100 mls/hr IVPB Q8 [facility] Last Admin: 05/12/17 13:23 Dose: 100 mls/hr Ceftriaxone Sodium 1 gm/ (Sodium Chloride) 100 mls @ 100 mls/hr IVPB DAILY [facility] Last Admin: 05/12/17 10:00 Dose: 100 mls/hr Insulin Aspart (Novolog) 0 unit SC ACHS [facility] PRN Reason: Protocol Last Admin: 05/12/17 12:30 Dose: Not Given Magnesium Hydroxide (Milk Of Magnesia) 30 ml PO DAILY PRN PRN Reason: Constipation Metformin HCl (Glucophage) 1,000 mg PO BID [facility] Last Admin: 05/12/17 09:57 Dose: 1,000 mg Methylprednisolone (Solu-Medrol) 60 mg IV DAILY [facility] Last Admin: 05/12/17 10:00 Dose: 60 mg Montelukast Sodium (Singulair) 10 mg PO HS [facility] Last Admin: 05/11/17 21:27 Dose: 10 mg Morphine Sulfate (Morphine) 2 mg IVP Q4 PRN PRN Reason: Pain, severe (8-10) Last Admin: 05/12/17 07:45 Dose: 2 mg Multivitamins/Minerals (Therapeutic-M Tab) 1 tab PO DAILY [facility] Last Admin: 05/12/17 09:58 Dose: 1 tab Oxycodone HCl (Oxycodone Immediate Release Tab) 5 mg PO Q6 PRN PRN Reason: Pain, moderate (4-7) Last Admin: 05/12/17 14:36 Dose: 5 mg Promethazine HCl/Codeine (Phenergan/Codeine Oral Syrup) 5 ml PO Q8 PRN PRN Reason: Cough Last Admin: 05/12/17 10:05 Dose: 5 ml Roflumilast (Daliresp) 500 mcg PO DAILY [facility] Last Admin: 05/12/17 09:58 Dose: 500 mcg Fluticasone/Salmeterol (Advair Diskus 250/50) 1 puff INH RBID [facility] Last Admin: 05/12/17 07:18 Dose: 1 puff - Labs Labs: 05/12/17 07:06 05/12/17 14:43 PT 20.4 SECONDS (9.7-12.2) H 05/08/17 21:24 INR 1.8 05/08/17 21:24 APTT 33 SECONDS (21-34) 05/08/17 21:24 - Constitutional Appears: Non-toxic, No Acute Distress - Head Exam Head Exam: ATRAUMATIC - Eye Exam Eye Exam: EOMI. absent: Scleral icterus - ENT Exam ENT Exam: Mucous Membranes Moist - Respiratory Exam Respiratory Exam: NORMAL BREATHING PATTERN. absent: Accessory Muscle Use, Respiratory Distress - Cardiovascular Exam Cardiovascular Exam: +S1, +S2 - GI/Abdominal Exam GI & Abdominal Exam: Soft, Tenderness. absent: Distended, Guarding, Rigid - Neurological Exam Neurological Exam: Alert, Awake, Oriented x3 - Psychiatric Exam Psychiatric exam: Normal Affect - Skin Skin Exam: Normal Color, Warm Assessment and Plan - Assessment and Plan (Free Text) Assessment: 67M admitted for pneumonia - sx consulted for management of abdominal wound Plan: - abdominal wound healing well - retention sutures removed at bedside during encounter - wound care - medical management for pneumonia per primary team - no further surgical intervention at this time d/w Dr. Emilia Gatica PGY1
--- NOTE | 2017-05-12 22:16 | CP.PCM.PN ---
Subjective - Date & Time of Evaluation Date of Evaluation: 05/12/17 Time of Evaluation: 14:35 - Subjective Subjective: Pt seen and examined, is still coughing, wheezing and he is short of breath, in mild resp distress, he has some post op abdominal pain and he is concerned about his ileostomy care after he goes home Objective - Vital Signs/Intake and Output Vital Signs (last 24 hours): Temp Pulse Resp BP Pulse Ox 97.5 F L 100 H 22 105/71 93 L 05/12/17 15:35 05/12/17 19:50 05/12/17 15:35 05/12/17 15:35 05/12/17 15:35 Intake and Output: 05/12/17 05/13/17 18:59 06:59 Intake Total 600 Output Total 600 Balance 0 - Medications Medications: Current Medications Albuterol/Ipratropium (Duoneb 3 Mg/0.5 Mg (3 Ml) Ud) 3 ml INH RQ6 [facility] Last Admin: 05/12/17 19:45 Dose: 3 ml Alprazolam (Xanax) 0.5 mg PO Q12 [facility] Stop: 05/16/17 00:31 Last Admin: 05/12/17 21:51 Dose: 0.5 mg Budesonide (Pulmicort Respules) 1 mg IH RQ12 [facility] Last Admin: 05/12/17 19:48 Dose: 1 mg Guaifenesin (Mucinex La) 600 mg PO BID [facility] Last Admin: 05/12/17 18:10 Dose: 600 mg Home Med (Patient's Own Inhalation Solution) 2 ml INH RQ12 [facility] Last Admin: 05/12/17 07:17 Dose: 2 ml Metronidazole (Flagyl) 500 mg in 100 mls @ 100 mls/hr IVPB Q8 [facility] Last Admin: 05/12/17 21:25 Dose: 100 mls/hr Ceftriaxone Sodium 1 gm/ (Sodium Chloride) 100 mls @ 100 mls/hr IVPB DAILY [facility] Last Admin: 05/12/17 10:00 Dose: 100 mls/hr Insulin Aspart (Novolog) 0 unit SC ACHS [facility] PRN Reason: Protocol Last Admin: 05/12/17 21:29 Dose: Not Given Magnesium Hydroxide (Milk Of Magnesia) 30 ml PO DAILY PRN PRN Reason: Constipation Metformin HCl (Glucophage) 1,000 mg PO BID [facility] Last Admin: 05/12/17 19:00 Dose: Not Given Methylprednisolone (Solu-Medrol) 60 mg IV DAILY [facility] Last Admin: 05/12/17 10:00 Dose: 60 mg Montelukast Sodium (Singulair) 10 mg PO HS [facility] Last Admin: 05/12/17 21:51 Dose: 10 mg Morphine Sulfate (Morphine) 2 mg IVP Q4 PRN PRN Reason: Pain, severe (8-10) Last Admin: 05/12/17 07:45 Dose: 2 mg Multivitamins/Minerals (Therapeutic-M Tab) 1 tab PO DAILY [facility] Last Admin: 05/12/17 09:58 Dose: 1 tab Oxycodone HCl (Oxycodone Immediate Release Tab) 5 mg PO Q6 PRN PRN Reason: Pain, moderate (4-7) Last Admin: 05/12/17 14:36 Dose: 5 mg Promethazine HCl/Codeine (Phenergan/Codeine Oral Syrup) 5 ml PO Q8 PRN PRN Reason: Cough Last Admin: 05/12/17 10:05 Dose: 5 ml Roflumilast (Daliresp) 500 mcg PO DAILY [facility] Last Admin: 05/12/17 09:58 Dose: 500 mcg Fluticasone/Salmeterol (Advair Diskus 250/50) 1 puff INH RBID [facility] Last Admin: 05/12/17 19:45 Dose: 1 puff - Labs Labs: 05/12/17 07:06 05/12/17 14:43 PT 20.4 SECONDS (9.7-12.2) H 05/08/17 21:24 INR 1.8 05/08/17 21:24 APTT 33 SECONDS (21-34) 05/08/17 21:24 - Constitutional Appears: No Acute Distress - Head Exam Head Exam: ATRAUMATIC, NORMAL INSPECTION, NORMOCEPHALIC - Eye Exam Eye Exam: EOMI, Normal appearance, PERRL Pupil Exam: NORMAL ACCOMODATION, PERRL - Respiratory Exam Respiratory Exam: Decreased Breath Sounds, Rales, Rhonchi - Cardiovascular Exam Cardiovascular Exam: Tachycardia, +S1, +S2. absent: Murmur - GI/Abdominal Exam GI & Abdominal Exam: Soft, Normal Bowel Sounds. absent: Tenderness Assessment and Plan (1) COPD exacerbation Assessment & Plan: PRN nebulizer taper steroids Status: Acute (2) Allergic rhinitis Status: Chronic (3) Steroid-induced diabetes Status: Chronic (4) Acute and chronic respiratory failure ([id number]) Status: Acute (5) Abdominal pain Status: Acute (6) S/P colon resection Assessment & Plan: - abdominal wound healing well - retention sutures removed at bedside during encounter - wound care - no further surgical intervention at this time Status: Acute
[2017-05-13] MEDS: Albuterol-Ipratrop 3 mg / 0.5 (3 ml) UD INH SCH ×4 (01:05→19:50)
[2017-05-13] MEDS: metroNIDAZOLE IV 500 mg/100 ml 500 MG/100 ML BAG IVPB SCH (05:37)
[2017-05-13] MEDS: Promethazine/Cod 6.25mg-10mg/5ml Syr UD PO PRN ×3 (05:40→22:48)
[2017-05-13] MEDS: (Novolog) Insulin Aspart, Recombinant 100 u/ml 10 ml vial SC SCH ×4 (07:33→22:00)
[2017-05-13] MEDS: Fluticasone-Salmeterol 250-50mcg Diskus INH SCH ×2 (08:40→19:54)
[2017-05-13] MEDS: Budesonide 0.5 mg/2 ml Inhal Susp UD IH SCH ×2 (08:41→19:51)
[2017-05-13] MEDS: ARFORMOTEROL 15 MCG/2 ML INH SCH ×2 (08:41→19:51)
[2017-05-13] MEDS: guaiFENesin 600 mg ER Tab PO SCH ×2 (10:09→17:23)
[2017-05-13] MEDS: oxyCODONE 5 mg Immediate Release Tab PO PRN (10:10)
[2017-05-13] MEDS: Multivitamin With Minerals Tab PO SCH (10:12)
--- NOTE | 2017-05-13 23:19 | CP.PCM.PN ---
Subjective - Date & Time of Evaluation Date of Evaluation: 05/13/17 Time of Evaluation: 10:00 - Subjective Subjective: Pt seen and examined today is feeling better, less short of breath and wheezing , cough with sputm Objective - Vital Signs/Intake and Output Vital Signs (last 24 hours): Temp Pulse Resp BP Pulse Ox 97.7 F 112 H 22 100/66 95 05/13/17 15:45 05/13/17 15:45 05/13/17 15:45 05/13/17 15:45 05/13/17 15:45 Intake and Output: 05/13/17 05/14/17 18:59 06:59 Intake Total 100 Output Total 1400 150 Balance -1300 -150 - Medications Medications: Current Medications Albuterol/Ipratropium (Duoneb 3 Mg/0.5 Mg (3 Ml) Ud) 3 ml INH RQ6 [facility] Last Admin: 05/13/17 19:50 Dose: 3 ml Alprazolam (Xanax) 0.5 mg PO Q12 [facility] Stop: 05/16/17 00:31 Last Admin: 05/13/17 21:08 Dose: 0.5 mg Budesonide (Pulmicort Respules) 1 mg IH RQ12 [facility] Last Admin: 05/13/17 19:51 Dose: 1 mg Guaifenesin (Mucinex La) 600 mg PO BID [facility] Last Admin: 05/13/17 17:23 Dose: 600 mg Home Med (Patient's Own Inhalation Solution) 2 ml INH RQ12 [facility] Last Admin: 05/13/17 19:51 Dose: Not Given Ceftriaxone Sodium 1 gm/ (Sodium Chloride) 100 mls @ 100 mls/hr IVPB DAILY [facility] Last Admin: 05/13/17 10:58 Dose: 100 mls/hr Insulin Aspart (Novolog) 0 unit SC ACHS [facility] PRN Reason: Protocol Last Admin: 05/13/17 17:23 Dose: 3 unit Magnesium Hydroxide (Milk Of Magnesia) 30 ml PO DAILY PRN PRN Reason: Constipation Metformin HCl (Glucophage) 1,000 mg PO BID [facility] Last Admin: 05/13/17 17:22 Dose: 1,000 mg Methylprednisolone (Solu-Medrol) 60 mg IV DAILY [facility] Last Admin: 05/13/17 10:12 Dose: 60 mg Metronidazole (Flagyl) 500 mg PO Q8 [facility] Last Admin: 05/13/17 21:08 Dose: 500 mg Montelukast Sodium (Singulair) 10 mg PO HS [facility] Last Admin: 05/13/17 21:08 Dose: 10 mg Morphine Sulfate (Morphine) 2 mg IVP Q4 PRN PRN Reason: Pain, severe (8-10) Last Admin: 05/13/17 20:04 Dose: 2 mg Multivitamins/Minerals (Therapeutic-M Tab) 1 tab PO DAILY [facility] Last Admin: 05/13/17 10:12 Dose: 1 tab Oxycodone HCl (Oxycodone Immediate Release Tab) 5 mg PO Q6 PRN PRN Reason: Pain, moderate (4-7) Last Admin: 05/13/17 10:10 Dose: 5 mg Promethazine HCl/Codeine (Phenergan/Codeine Oral Syrup) 5 ml PO Q8 PRN PRN Reason: Cough Last Admin: 05/13/17 22:48 Dose: 5 ml Roflumilast (Daliresp) 500 mcg PO DAILY [facility] Last Admin: 05/13/17 10:09 Dose: 500 mcg Fluticasone/Salmeterol (Advair Diskus 250/50) 1 puff INH RBID [facility] Last Admin: 05/13/17 19:54 Dose: 1 puff - Labs Labs: 05/12/17 07:06 05/12/17 14:43 PT 20.4 SECONDS (9.7-12.2) H 05/08/17 21:24 INR 1.8 05/08/17 21:24 APTT 33 SECONDS (21-34) 05/08/17 21:24 Assessment and Plan (1) COPD exacerbation Status: Acute (2) Allergic rhinitis Status: Chronic (3) Steroid-induced diabetes Status: Chronic (4) Acute and chronic respiratory failure ([id number]) Status: Acute (5) Abdominal pain Status: Acute (6) S/P colon resection Status: Acute
[2017-05-14] MEDS: Albuterol-Ipratrop 3 mg / 0.5 (3 ml) UD INH SCH ×2 (01:39→19:37)
[2017-05-14] MEDS: oxyCODONE 5 mg Immediate Release Tab PO PRN ×2 (02:20→14:26)
[2017-05-14] MEDS: Budesonide 0.5 mg/2 ml Inhal Susp UD IH SCH ×2 (07:30→19:37)
[2017-05-14] MEDS: ARFORMOTEROL 15 MCG/2 ML INH SCH ×2 (07:31→19:38)
[2017-05-14] MEDS: (Novolog) Insulin Aspart, Recombinant 100 u/ml 10 ml vial SC SCH ×4 (07:41→22:53)
[2017-05-14] MEDS: guaiFENesin 600 mg ER Tab PO SCH ×2 (10:56→18:14)
[2017-05-14] MEDS: Multivitamin With Minerals Tab PO SCH (10:56)
[2017-05-14] MEDS: Promethazine/Cod 6.25mg-10mg/5ml Syr UD PO PRN ×2 (10:57→19:40)
[2017-05-14] MEDS: Fluticasone-Salmeterol 250-50mcg Diskus INH SCH ×2 (11:05→19:37)
[2017-05-14] MEDS ORDERED: Aluminum Hydroxide/Magnesium Hydroxide Susp (30 mL) PO ONE (18:45)
[2017-05-14] MEDS ORDERED: Alum-Mag Hydrox-Simethicone Susp (30 mL) PO STA (19:17)
--- NOTE | 2017-05-14 22:51 | CP.PCM.PN ---
Subjective - Date & Time of Evaluation Date of Evaluation: 05/14/17 Time of Evaluation: 20:00 - Subjective Subjective: pt seen & evaluated at bedside, is feeling better, less cough, less short of breath Objective - Vital Signs/Intake and Output Vital Signs (last 24 hours): Temp Pulse Resp BP Pulse Ox 97.7 F 100 H 20 114/69 98 05/14/17 15:20 05/14/17 15:20 05/14/17 15:20 05/14/17 15:20 05/14/17 15:20 Intake and Output: 05/14/17 05/15/17 18:59 06:59 Intake Total 620 Output Total 900 Balance -280 - Medications Medications: Current Medications Albuterol/Ipratropium (Duoneb 3 Mg/0.5 Mg (3 Ml) Ud) 3 ml INH RQ6 [facility] Last Admin: 05/14/17 19:37 Dose: 3 ml Alprazolam (Xanax) 0.5 mg PO Q12 [facility] Stop: 05/16/17 00:31 Last Admin: 05/14/17 10:56 Dose: 0.5 mg Budesonide (Pulmicort Respules) 1 mg IH RQ12 [facility] Last Admin: 05/14/17 19:37 Dose: 1 mg Guaifenesin (Mucinex La) 600 mg PO BID [facility] Last Admin: 05/14/17 18:14 Dose: 600 mg Home Med (Patient's Own Inhalation Solution) 2 ml INH RQ12 [facility] Last Admin: 05/14/17 19:38 Dose: Not Given Insulin Aspart (Novolog) 0 unit SC ACHS [facility] PRN Reason: Protocol Last Admin: 05/14/17 18:15 Dose: 2 unit Magnesium Hydroxide (Milk Of Magnesia) 30 ml PO DAILY PRN PRN Reason: Constipation Metformin HCl (Glucophage) 1,000 mg PO BID [facility] Last Admin: 05/14/17 18:14 Dose: 1,000 mg Methylprednisolone (Solu-Medrol) 60 mg IV DAILY [facility] Last Admin: 05/14/17 10:56 Dose: 60 mg Metronidazole (Flagyl) 500 mg PO Q8 [facility] Last Admin: 05/14/17 14:26 Dose: 500 mg Montelukast Sodium (Singulair) 10 mg PO HS [facility] Last Admin: 05/13/17 21:08 Dose: 10 mg Morphine Sulfate (Morphine) 2 mg IVP Q4 PRN PRN Reason: Pain, severe (8-10) Last Admin: 05/14/17 07:54 Dose: 2 mg Multivitamins/Minerals (Therapeutic-M Tab) 1 tab PO DAILY [facility] Last Admin: 05/14/17 10:56 Dose: 1 tab Oxycodone HCl (Oxycodone Immediate Release Tab) 5 mg PO Q6 PRN PRN Reason: Pain, moderate (4-7) Last Admin: 05/14/17 14:26 Dose: 5 mg Promethazine HCl/Codeine (Phenergan/Codeine Oral Syrup) 5 ml PO Q8 PRN PRN Reason: Cough Last Admin: 05/14/17 19:40 Dose: 5 ml Roflumilast (Daliresp) 500 mcg PO DAILY [facility] Last Admin: 05/14/17 10:56 Dose: 500 mcg Fluticasone/Salmeterol (Advair Diskus 250/50) 1 puff INH RBID [facility] Last Admin: 05/14/17 19:37 Dose: 1 puff - Labs Labs: 05/12/17 07:06 05/12/17 14:43 PT 20.4 SECONDS (9.7-12.2) H 05/08/17 21:24 INR 1.8 05/08/17 21:24 APTT 33 SECONDS (21-34) 05/08/17 21:24 - Constitutional Appears: No Acute Distress - Head Exam Head Exam: ATRAUMATIC, NORMAL INSPECTION, NORMOCEPHALIC - Eye Exam Eye Exam: EOMI, Normal appearance, PERRL Pupil Exam: NORMAL ACCOMODATION, PERRL - Respiratory Exam Respiratory Exam: Decreased Breath Sounds, Wheezes - Cardiovascular Exam Cardiovascular Exam: REGULAR RHYTHM, +S1, +S2. absent: Murmur Assessment and Plan (1) COPD exacerbation Status: Acute (2) Allergic rhinitis Status: Chronic (3) Steroid-induced diabetes Status: Chronic (4) Acute and chronic respiratory failure ([id number]) Status: Acute (5) Abdominal pain Status: Acute (6) S/P colon resection Status: Acute
[2017-05-15] MEDS: Albuterol-Ipratrop 3 mg / 0.5 (3 ml) UD INH SCH ×4 (01:25→20:46)
[2017-05-15] MEDS: oxyCODONE 5 mg Immediate Release Tab PO PRN ×3 (05:29→22:23)
[2017-05-15] MEDS: (Novolog) Insulin Aspart, Recombinant 100 u/ml 10 ml vial SC SCH ×4 (07:53→22:22)
[2017-05-15] MEDS: Fluticasone-Salmeterol 250-50mcg Diskus INH SCH (08:37)
[2017-05-15] MEDS: Budesonide 0.5 mg/2 ml Inhal Susp UD IH SCH ×2 (08:39→20:47)
[2017-05-15] MEDS: ARFORMOTEROL 15 MCG/2 ML INH SCH ×2 (08:47→20:47)
[2017-05-15] MEDS: Multivitamin With Minerals Tab PO SCH (10:23)
[2017-05-15] MEDS: guaiFENesin 600 mg ER Tab PO SCH ×2 (10:23→18:22)
[2017-05-15] MEDS: Promethazine/Cod 6.25mg-10mg/5ml Syr UD PO PRN ×2 (10:25→22:11)
[2017-05-15 12:09] LABS: BASO # 0.1 K/uL (0.0-0.2); BASO % 0.5 % (0.0-2.0); EOS # 0.1 K/uL (0.0-0.7); HEMATOCRIT 32.6 % (35.0-51.0); LYMPH # 2.9 K/uL (1.0-4.3); LYMPH % 22.8 % (20.0-40.0); MEAN CELL VOLUME 71.9 fL (80.0-94.0); MEAN CORPUSCULAR HEMOGLOBIN 24.1 pg (27.0-31.0); MEAN CORPUSCULAR HGB CONC 33.5 g/dL (33.0-37.0); MEAN PLATELET VOLUME 8.6 fL (7.2-11.7); MONO # 0.8 K/uL (0.0-0.8); MONO % 6.5 % (0.0-10.0); NRBC % 0.1 % (0.0-2.0); RED CELL DISTRIBUTION WIDTH 25.6 % (11.5-14.5); WHITE BLOOD COUNT 12.5 K/uL (4.8-10.8)
[2017-05-15 12:22] LABS: INR 1.3
[2017-05-15 12:34] LABS: CHLORIDE 98 mmol/L (98-107)
[2017-05-15 12:35] LABS: POTASSIUM 3.5 mmol/L (3.6-5.2); SODIUM 140 mmol/L (132-148)
[2017-05-15 12:37] LABS: GFR AFRICAN-AMERICAN > 60
[2017-05-15 12:38] LABS: BLOOD UREA NITROGEN 7 mg/dL (9-20); CALCIUM 9.3 mg/dl (8.6-10.4); CARBON DIOXIDE 29 mmol/L (22-30); GLUCOSE,RANDOM 96 mg/dL (75-110)
--- NOTE | 2017-05-15 13:13 | CARD ---
APPROVED REPORT EKG Measurement Heart [id number] <Conclusion> Sinus tachycardia Otherwise normal ECG
[2017-05-15] MEDS ORDERED: MethylPREDNISolone 40 mg Vial IVP SCH (14:00)
[2017-05-15] MEDS ORDERED: Potassium Chloride 20 mEq ER Tab PO ONE (14:00)
--- NOTE | 2017-05-15 14:20 | NM ---
COMPARISON: May 15, 2017. Two-view chest Serial ventilation perfusion scans 03/24/2016 and 09/18/2016. TECHNIQUE: 11.8 mCi technetium 99-m Xe-133 Gas. 3.6 mCI technetium 99-m MAA administered intravenously. FINDINGS: VENTILATION COMPONENT: Heterogeneous ventilation, air trapping consistent with lower airway disease/ COPD. PERFUSION COMPONENT: Heterogeneous distribution of radionuclide. No geographic, segmental, lobar abnormalities apparent on the present examination. IMPRESSION: Low probability ventilation perfusion scan for pulmonary embolism. No significant interval change compared to the prior examination(s).
--- NOTE | 2017-05-15 14:36 | RAD ---
HISTORY: need to read V q scan COMPARISON: Portable chest 05/08/2017. TECHNIQUE: Chest PA and lateral FINDINGS: LUNGS: Trace left basilar retrocardiac airspace disease is questioned. None is seen at the right. Increase history volume. PLEURA: Trace left pleural effusion is questioned blunting left costophrenic sulcus. No pneumothorax or right-sided pleural effusion. CARDIOVASCULAR: Normal. OSSEOUS STRUCTURES: No significant abnormalities. VISUALIZED UPPER ABDOMEN: Normal. OTHER FINDINGS: None. IMPRESSION: Trace possible left pleural effusion blunts the left costophrenic sulcus. Limited retrocardiac left basilar airspace disease noted. None is seen the right.
[2017-05-15] MEDS: MethylPREDNISolone 40 mg Vial IVP SCH (18:22)
[2017-05-15] MEDS ORDERED: Aluminum Hydroxide/Magnesium Hydroxide Susp (30 mL) PO ONE (20:51)
[2017-05-15] MEDS ORDERED: Albuterol 0.083% Inhal Sol (2.5 mg/3 mL) UD ONE (22:00)
[2017-05-15] MEDS ORDERED: Albuterol 0.083% Inhal Sol (2.5 mg/3 mL) UD INH PRN (22:01)
--- NOTE | 2017-05-15 22:25 | CP.PCM.PN ---
Subjective - Date & Time of Evaluation Date of Evaluation: 05/15/17 Time of Evaluation: 09:45 - Subjective Subjective: Pt seen and examined, still short of breath, uses BIPAP on and off, coughing and wheezing. ileostomy is filled with black colored stool, loose stool. Objective - Vital Signs/Intake and Output Vital Signs (last 24 hours): Temp Pulse Resp BP Pulse Ox 98.1 F 80 22 110/73 96 05/15/17 15:20 05/15/17 15:20 05/15/17 15:20 05/15/17 15:20 05/15/17 15:20 Intake and Output: 05/15/17 05/16/17 18:59 06:59 Intake Total 400 Output Total 350 Balance 50 - Medications Medications: Current Medications Albuterol Sulfate (Albuterol 0.083% Inhal Dorothea (2.5 Mg/3 Ml) Ud) 2.5 mg INH RQ4 PRN PRN Reason: SHORTNESS OF BREATH/WHEEZING Albuterol/Ipratropium (Duoneb 3 Mg/0.5 Mg (3 Ml) Ud) 3 ml INH RQ6 [facility] Last Admin: 05/15/17 20:46 Dose: 3 ml Alprazolam (Xanax) 0.5 mg PO Q12 [facility] Stop: 05/16/17 00:31 Last Admin: 05/15/17 22:12 Dose: 0.5 mg Budesonide (Pulmicort Respules) 1 mg IH RQ12 [facility] Last Admin: 05/15/17 20:47 Dose: 0.5 mg Guaifenesin (Mucinex La) 600 mg PO BID [facility] Last Admin: 05/15/17 18:22 Dose: 600 mg Home Med (Patient's Own Inhalation Solution) 2 ml INH RQ12 [facility] Last Admin: 05/15/17 20:47 Dose: 2 ml Insulin Aspart (Novolog) 0 unit SC ACHS [facility] PRN Reason: Protocol Last Admin: 05/15/17 18:21 Dose: 1 unit Magnesium Hydroxide (Milk Of Magnesia) 30 ml PO DAILY PRN PRN Reason: Constipation Metformin HCl (Glucophage) 1,000 mg PO BID [facility] Last Admin: 05/15/17 18:14 Dose: Not Given Methylprednisolone (Solu-Medrol) 40 mg IVP Q8H [facility] Last Admin: 05/15/17 18:22 Dose: 40 mg Metronidazole (Flagyl) 500 mg PO Q8 [facility] Last Admin: 05/15/17 22:10 Dose: 500 mg Montelukast Sodium (Singulair) 10 mg PO HS [facility] Last Admin: 05/15/17 22:12 Dose: 10 mg Morphine Sulfate (Morphine) 2 mg IVP Q4 PRN PRN Reason: Pain, severe (8-10) Last Admin: 05/15/17 18:38 Dose: 2 mg Multivitamins/Minerals (Therapeutic-M Tab) 1 tab PO DAILY [facility] Last Admin: 05/15/17 10:23 Dose: 1 tab Oxycodone HCl (Oxycodone Immediate Release Tab) 5 mg PO Q6 PRN PRN Reason: Pain, moderate (4-7) Last Admin: 05/15/17 15:06 Dose: 5 mg Promethazine HCl/Codeine (Phenergan/Codeine Oral Syrup) 5 ml PO Q8 PRN PRN Reason: Cough Last Admin: 05/15/17 22:11 Dose: 5 ml Roflumilast (Daliresp) 500 mcg PO DAILY [facility] Last Admin: 05/15/17 10:23 Dose: 500 mcg Fluticasone/Salmeterol (Advair Diskus 250/50) 1 puff INH RBID [facility] Last Admin: 05/15/17 08:37 Dose: 1 puff - Labs Labs: 05/15/17 11:59 05/15/17 11:59 PT 14.4 SECONDS (9.7-12.2) H 05/15/17 11:59 INR 1.3 05/15/17 11:59 APTT 33 SECONDS (21-34) 05/08/17 21:24 - Constitutional Appears: No Acute Distress - Head Exam Head Exam: ATRAUMATIC, NORMAL INSPECTION, NORMOCEPHALIC - ENT Exam ENT Exam: Mucous Membranes Moist - Respiratory Exam Respiratory Exam: Decreased Breath Sounds, Rales, Rhonchi - Cardiovascular Exam Cardiovascular Exam: REGULAR RHYTHM, +S1, +S2. absent: Murmur - GI/Abdominal Exam GI & Abdominal Exam: Soft, Normal Bowel Sounds. absent: Tenderness Additional comments: post op wound is clean illeostomy is clean with stool filled Assessment and Plan (1) COPD exacerbation Assessment & Plan: cough is worse, pt remains Short of breath, afebrile, white sputum production BIPAP PRN nebulizer increase salmeterol expectorant Dalirasp Status: Acute (2) Allergic rhinitis Status: Chronic (3) Steroid-induced diabetes Status: Chronic (4) Acute and chronic respiratory failure ([id number]) Status: Acute (5) Abdominal pain Status: Acute (6) S/P colon resection Status: Acute
[2017-05-16] MEDS: Albuterol-Ipratrop 3 mg / 0.5 (3 ml) UD INH SCH ×4 (01:26→20:08)
[2017-05-16] MEDS: MethylPREDNISolone 40 mg Vial IVP SCH ×3 (01:36→18:49)
[2017-05-16] MEDS: (Novolog) Insulin Aspart, Recombinant 100 u/ml 10 ml vial SC SCH ×4 (07:59→22:51)
[2017-05-16] MEDS: Budesonide 0.5 mg/2 ml Inhal Susp UD IH SCH ×2 (08:25→20:08)
[2017-05-16] MEDS: Fluticasone-Salmeterol 250-50mcg Diskus INH SCH ×2 (08:25→20:09)
[2017-05-16] MEDS: ARFORMOTEROL 15 MCG/2 ML INH SCH ×2 (08:26→20:09)
[2017-05-16 08:45] LABS: INR 1.2
[2017-05-16] MEDS: guaiFENesin 600 mg ER Tab PO SCH ×2 (10:51→18:49)
[2017-05-16] MEDS: Multivitamin With Minerals Tab PO SCH (10:59)
[2017-05-16] MEDS: oxyCODONE 5 mg Immediate Release Tab PO PRN ×2 (10:59→22:56)
[2017-05-16] MEDS: Promethazine/Cod 6.25mg-10mg/5ml Syr UD PO PRN ×2 (11:00→18:58)
--- NOTE | 2017-05-16 14:36 | CP.PCM.PN ---
Subjective - Date & Time of Evaluation Date of Evaluation: 05/16/17 Time of Evaluation: 06:45 - Subjective Subjective: General Surgery Dr. Nieto Pt S&E @bedside. RIKA. pt c/o leaking ostomy. denies F/C, N/C, D/C. Objective - Vital Signs/Intake and Output Vital Signs (last 24 hours): Temp Pulse Resp BP Pulse Ox 97.5 F L 92 H 20 106/65 99 05/16/17 08:32 05/16/17 08:32 05/16/17 08:32 05/16/17 08:32 05/16/17 08:32 Intake and Output: 05/16/17 05/16/17 06:59 18:59 Intake Total 120 Output Total 750 Balance -630 - Medications Medications: Current Medications Albuterol Sulfate (Albuterol 0.083% Inhal Dorothea (2.5 Mg/3 Ml) Ud) 2.5 mg INH RQ4 PRN PRN Reason: SHORTNESS OF BREATH/WHEEZING Last Admin: 05/15/17 22:20 Dose: 2.5 mg Albuterol/Ipratropium (Duoneb 3 Mg/0.5 Mg (3 Ml) Ud) 3 ml INH RQ6 [facility] Last Admin: 05/16/17 13:29 Dose: 3 ml Alprazolam (Xanax) 0.5 mg PO Q12 PRN PRN Reason: Anxiety Budesonide (Pulmicort Respules) 1 mg IH RQ12 [facility] Last Admin: 05/16/17 08:25 Dose: 0.5 mg Guaifenesin (Mucinex La) 600 mg PO BID [facility] Last Admin: 05/16/17 10:51 Dose: 600 mg Home Med (Patient's Own Inhalation Solution) 2 ml INH RQ12 [facility] Last Admin: 05/16/17 08:26 Dose: 2 ml Insulin Aspart (Novolog) 0 unit SC ACHS [facility] PRN Reason: Protocol Last Admin: 05/16/17 11:30 Dose: Not Given Magnesium Hydroxide (Milk Of Magnesia) 30 ml PO DAILY PRN PRN Reason: Constipation Metformin HCl (Glucophage) 1,000 mg PO BID [facility] Last Admin: 05/16/17 10:51 Dose: 1,000 mg Methylprednisolone (Solu-Medrol) 40 mg IVP Q8H [facility] Last Admin: 05/16/17 10:50 Dose: 40 mg Metronidazole (Flagyl) 500 mg PO Q8 [facility] Last Admin: 05/16/17 06:03 Dose: 500 mg Montelukast Sodium (Singulair) 10 mg PO HS [facility] Last Admin: 05/15/17 22:12 Dose: 10 mg Morphine Sulfate (Morphine) 2 mg IVP Q4 PRN PRN Reason: Pain, severe (8-10) Last Admin: 05/16/17 01:36 Dose: 2 mg Multivitamins/Minerals (Therapeutic-M Tab) 1 tab PO DAILY [facility] Last Admin: 05/16/17 10:59 Dose: 1 tab Oxycodone HCl (Oxycodone Immediate Release Tab) 5 mg PO Q6 PRN PRN Reason: Pain, moderate (4-7) Last Admin: 05/16/17 10:59 Dose: 5 mg Promethazine HCl/Codeine (Phenergan/Codeine Oral Syrup) 5 ml PO Q8 PRN PRN Reason: Cough Last Admin: 05/16/17 11:00 Dose: 5 ml Roflumilast (Daliresp) 500 mcg PO DAILY [facility] Last Admin: 05/16/17 10:51 Dose: 500 mcg Fluticasone/Salmeterol (Advair Diskus 250/50) 1 puff INH RBID [facility] Last Admin: 05/16/17 08:25 Dose: 1 puff Warfarin Sodium (Coumadin) 10 mg PO 1800 [facility] Stop: 05/16/17 18:01 - Labs Labs: 05/15/17 11:59 05/15/17 11:59 PT 13.5 SECONDS (9.7-12.2) H 05/16/17 08:27 INR 1.2 05/16/17 08:27 APTT 33 SECONDS (21-34) 05/08/17 21:24 - Constitutional Appears: Non-toxic, No Acute Distress - Head Exam Head Exam: NORMAL INSPECTION - Eye Exam Eye Exam: Normal appearance - ENT Exam ENT Exam: Mucous Membranes Moist - Respiratory Exam Respiratory Exam: NORMAL BREATHING PATTERN. absent: Accessory Muscle Use, Respiratory Distress - Cardiovascular Exam Cardiovascular Exam: absent: Bradycardia, Tachycardia - GI/Abdominal Exam GI & Abdominal Exam: Soft. absent: Distended, Guarding, Tenderness, Rebound Additional comments: incision c/d/i mild erythema surrounding ostomy site - Extremities Exam Extremities Exam: Normal Inspection - Neurological Exam Neurological Exam: Alert, Awake, Oriented x3 - Psychiatric Exam Psychiatric exam: Normal Affect, Normal Mood - Skin Skin Exam: Dry, Intact, Normal Color, Warm Assessment and Plan - Assessment and Plan (Free Text) Assessment: 67 y/o M w/ leaking ileostomy - f/u wound care for new ostomy appliance - keep skin clean and dry - continue medical management Pt discussed w/ Dr. Emilia Tirado DO PGY2
[2017-05-16] MEDS: Aluminum Hydroxide/Magnesium Hydroxide Susp (30 mL) PO PRN (18:48)
--- NOTE | 2017-05-16 22:56 | CP.PCM.PN ---
Subjective - Date & Time of Evaluation Date of Evaluation: 05/16/17 Time of Evaluation: 18:00 - Subjective Subjective: Pt seen and examined, pt is improving, feeling better, less tacypneac, less tacycardic since we increased his salmeterol dose Objective - Vital Signs/Intake and Output Vital Signs (last 24 hours): Temp Pulse Resp BP Pulse Ox 97.6 F 104 H 20 117/73 96 05/16/17 15:15 05/16/17 15:15 05/16/17 15:15 05/16/17 15:15 05/16/17 15:15 - Medications Medications: Current Medications Al Hydrox/Mg Hydrox/Simethicone (Maalox 30 Ml) 30 ml PO Q6H PRN PRN Reason: Indigestion / Heartburn Last Admin: 05/16/17 18:48 Dose: 30 ml Albuterol Sulfate (Albuterol 0.083% Inhal Dorothea (2.5 Mg/3 Ml) Ud) 2.5 mg INH RQ4 PRN PRN Reason: SHORTNESS OF BREATH/WHEEZING Last Admin: 05/15/17 22:20 Dose: 2.5 mg Albuterol/Ipratropium (Duoneb 3 Mg/0.5 Mg (3 Ml) Ud) 3 ml INH RQ6 [facility] Last Admin: 05/16/17 20:08 Dose: 3 ml Alprazolam (Xanax) 0.5 mg PO Q12 PRN PRN Reason: Anxiety Last Admin: 05/16/17 22:52 Dose: 0.5 mg Budesonide (Pulmicort Respules) 1 mg IH RQ12 [facility] Last Admin: 05/16/17 20:08 Dose: 0.5 mg Guaifenesin (Mucinex La) 600 mg PO BID [facility] Last Admin: 05/16/17 18:49 Dose: 600 mg Home Med (Patient's Own Inhalation Solution) 2 ml INH RQ12 [facility] Last Admin: 05/16/17 20:09 Dose: Not Given Insulin Aspart (Novolog) 0 unit SC ACHS [facility] PRN Reason: Protocol Last Admin: 05/16/17 22:51 Dose: Not Given Magnesium Hydroxide (Milk Of Magnesia) 30 ml PO DAILY PRN PRN Reason: Constipation Metformin HCl (Glucophage) 1,000 mg PO BID [facility] Last Admin: 05/16/17 18:50 Dose: 1,000 mg Methylprednisolone (Solu-Medrol) 40 mg IVP Q8H [facility] Last Admin: 05/16/17 18:49 Dose: 40 mg Metronidazole (Flagyl) 500 mg PO Q8 [facility] Last Admin: 05/16/17 14:50 Dose: 500 mg Montelukast Sodium (Singulair) 10 mg PO HS [facility] Last Admin: 05/16/17 22:52 Dose: 10 mg Morphine Sulfate (Morphine) 2 mg IVP Q4 PRN PRN Reason: Pain, severe (8-10) Last Admin: 05/16/17 01:36 Dose: 2 mg Multivitamins/Minerals (Therapeutic-M Tab) 1 tab PO DAILY [facility] Last Admin: 05/16/17 10:59 Dose: 1 tab Oxycodone HCl (Oxycodone Immediate Release Tab) 5 mg PO Q6 PRN PRN Reason: Pain, moderate (4-7) Last Admin: 05/16/17 10:59 Dose: 5 mg Promethazine HCl/Codeine (Phenergan/Codeine Oral Syrup) 5 ml PO Q8 PRN PRN Reason: Cough Last Admin: 05/16/17 18:58 Dose: 5 ml Roflumilast (Daliresp) 500 mcg PO DAILY [facility] Last Admin: 05/16/17 10:51 Dose: 500 mcg Fluticasone/Salmeterol (Advair Diskus 250/50) 1 puff INH RBID [facility] Last Admin: 05/16/17 20:09 Dose: 1 puff - Labs Labs: 05/15/17 11:59 05/15/17 11:59 PT 13.5 SECONDS (9.7-12.2) H 05/16/17 08:27 INR 1.2 05/16/17 08:27 APTT 33 SECONDS (21-34) 05/08/17 21:24 - Constitutional Appears: No Acute Distress - Head Exam Head Exam: ATRAUMATIC, NORMAL INSPECTION, NORMOCEPHALIC - Eye Exam Eye Exam: EOMI, Normal appearance, PERRL Pupil Exam: NORMAL ACCOMODATION, PERRL - Respiratory Exam Respiratory Exam: Rhonchi - Cardiovascular Exam Cardiovascular Exam: REGULAR RHYTHM, +S1, +S2. absent: Murmur - GI/Abdominal Exam GI & Abdominal Exam: Soft, Normal Bowel Sounds. absent: Tenderness - Rectal Exam Rectal Exam: Deferred Assessment and Plan (1) COPD exacerbation Status: Acute (2) Allergic rhinitis Status: Chronic (3) Steroid-induced diabetes Status: Chronic (4) Acute and chronic respiratory failure ([id number]) Status: Acute (5) Abdominal pain Status: Acute (6) S/P colon resection Status: Acute
[2017-05-17] MEDS: Albuterol-Ipratrop 3 mg / 0.5 (3 ml) UD INH SCH ×4 (01:23→19:50)
[2017-05-17] MEDS: MethylPREDNISolone 40 mg Vial IVP SCH ×3 (01:58→17:35)
[2017-05-17] MEDS: Budesonide 0.5 mg/2 ml Inhal Susp UD IH SCH ×2 (07:12→19:49)
[2017-05-17] MEDS: ARFORMOTEROL 15 MCG/2 ML INH SCH ×2 (07:13→20:58)
--- NOTE | 2017-05-17 07:37 | CP.PCM.PN ---
Subjective - Date & Time of Evaluation Date of Evaluation: 05/17/17 Time of Evaluation: 09:50 - Subjective Subjective: Pt seen and examined at bedside,less cough, sob and congestion, gets occasional abdominal pain is having loose watery stool . abdomen post op, ileostomy in place Objective - Vital Signs/Intake and Output Vital Signs (last 24 hours): Temp Pulse Resp BP Pulse Ox 97.5 F L 84 20 128/61 96 05/16/17 23:35 05/17/17 07:16 05/16/17 23:35 05/16/17 23:35 05/16/17 23:35 Intake and Output: 05/17/17 05/17/17 06:59 18:59 Intake Total 120 Output Total 700 Balance -580 - Medications Medications: Current Medications Al Hydrox/Mg Hydrox/Simethicone (Maalox 30 Ml) 30 ml PO Q6H PRN PRN Reason: Indigestion / Heartburn Last Admin: 05/16/17 18:48 Dose: 30 ml Albuterol Sulfate (Albuterol 0.083% Inhal Dorothea (2.5 Mg/3 Ml) Ud) 2.5 mg INH RQ4 PRN PRN Reason: SHORTNESS OF BREATH/WHEEZING Last Admin: 05/15/17 22:20 Dose: 2.5 mg Albuterol/Ipratropium (Duoneb 3 Mg/0.5 Mg (3 Ml) Ud) 3 ml INH RQ6 [facility] Last Admin: 05/17/17 07:12 Dose: 3 ml Alprazolam (Xanax) 0.5 mg PO Q12 PRN PRN Reason: Anxiety Last Admin: 05/16/17 22:52 Dose: 0.5 mg Budesonide (Pulmicort Respules) 1 mg IH RQ12 [facility] Last Admin: 05/17/17 07:12 Dose: 0.5 mg Guaifenesin (Mucinex La) 600 mg PO BID [facility] Last Admin: 05/16/17 18:49 Dose: 600 mg Home Med (Patient's Own Inhalation Solution) 2 ml INH RQ12 [facility] Last Admin: 05/17/17 07:13 Dose: 2 ml Insulin Aspart (Novolog) 0 unit SC ACHS [facility] PRN Reason: Protocol Last Admin: 05/16/17 22:51 Dose: Not Given Magnesium Hydroxide (Milk Of Magnesia) 30 ml PO DAILY PRN PRN Reason: Constipation Metformin HCl (Glucophage) 1,000 mg PO BID [facility] Last Admin: 05/16/17 18:50 Dose: 1,000 mg Methylprednisolone (Solu-Medrol) 40 mg IVP Q8H [facility] Last Admin: 05/17/17 01:58 Dose: 40 mg Metronidazole (Flagyl) 500 mg PO Q8 [facility] Last Admin: 05/17/17 05:34 Dose: 500 mg Montelukast Sodium (Singulair) 10 mg PO HS [facility] Last Admin: 05/16/17 22:52 Dose: 10 mg Morphine Sulfate (Morphine) 2 mg IVP Q4 PRN PRN Reason: Pain, severe (8-10) Last Admin: 05/16/17 01:36 Dose: 2 mg Multivitamins/Minerals (Therapeutic-M Tab) 1 tab PO DAILY [facility] Last Admin: 05/16/17 10:59 Dose: 1 tab Oxycodone HCl (Oxycodone Immediate Release Tab) 5 mg PO Q6 PRN PRN Reason: Pain, moderate (4-7) Last Admin: 05/16/17 22:56 Dose: 5 mg Promethazine HCl/Codeine (Phenergan/Codeine Oral Syrup) 5 ml PO Q8 PRN PRN Reason: Cough Last Admin: 05/16/17 18:58 Dose: 5 ml Roflumilast (Daliresp) 500 mcg PO DAILY [facility] Last Admin: 05/16/17 10:51 Dose: 500 mcg Fluticasone/Salmeterol (Advair Diskus 250/50) 1 puff INH RBID [facility] Last Admin: 05/16/17 20:09 Dose: 1 puff - Labs Labs: 05/15/17 11:59 05/15/17 11:59 PT 13.5 SECONDS (9.7-12.2) H 05/16/17 08:27 INR 1.2 05/16/17 08:27 APTT 33 SECONDS (21-34) 05/08/17 21:24 - Constitutional Appears: No Acute Distress, Chronically Ill - Head Exam Head Exam: ATRAUMATIC, NORMAL INSPECTION, NORMOCEPHALIC - Eye Exam Eye Exam: EOMI, Normal appearance, PERRL Pupil Exam: NORMAL ACCOMODATION, PERRL - Respiratory Exam Respiratory Exam: Clear to Ausculation Bilateral, NORMAL BREATHING PATTERN - Cardiovascular Exam Cardiovascular Exam: REGULAR RHYTHM, +S1, +S2. absent: Murmur - GI/Abdominal Exam Additional comments: post op abdomen with ileostomy in place with dark color stool Assessment and Plan (1) COPD exacerbation Status: Acute (2) Allergic rhinitis Status: Chronic (3) Steroid-induced diabetes Status: Chronic (4) Acute and chronic respiratory failure ([id number]) Status: Acute (5) Abdominal pain Status: Acute (6) S/P colon resection Status: Acute
[2017-05-17] MEDS: (Novolog) Insulin Aspart, Recombinant 100 u/ml 10 ml vial SC SCH ×3 (08:04→18:16)
[2017-05-17] MEDS: Fluticasone-Salmeterol 250-50mcg Diskus INH SCH ×2 (09:03→19:49)
[2017-05-17] MEDS: guaiFENesin 600 mg ER Tab PO SCH ×2 (10:44→17:35)
[2017-05-17] MEDS: Multivitamin With Minerals Tab PO SCH (10:48)
[2017-05-17] MEDS: Promethazine/Cod 6.25mg-10mg/5ml Syr UD PO PRN ×2 (10:58→19:53)
[2017-05-17] MEDS: Aluminum Hydroxide/Magnesium Hydroxide Susp (30 mL) PO PRN (19:25)
[2017-05-18] MEDS: oxyCODONE 5 mg Immediate Release Tab PO PRN ×2 (01:09→15:16)
[2017-05-18] MEDS: MethylPREDNISolone 40 mg Vial IVP SCH ×2 (01:11→10:11)
[2017-05-18 01:45] VITALS: RESP 20
[2017-05-18] MEDS: Albuterol-Ipratrop 3 mg / 0.5 (3 ml) UD INH SCH ×3 (01:47→13:37)
[2017-05-18] MEDS: ARFORMOTEROL 15 MCG/2 ML INH SCH (07:15)
[2017-05-18] MEDS: Budesonide 0.5 mg/2 ml Inhal Susp UD IH SCH (07:15)
[2017-05-18 07:49] VITALS: O2SAT 95
[2017-05-18] MEDS: (Novolog) Insulin Aspart, Recombinant 100 u/ml 10 ml vial SC SCH ×2 (08:30→12:23)
[2017-05-18] MEDS: Fluticasone-Salmeterol 250-50mcg Diskus INH SCH (10:11)
[2017-05-18] MEDS: Promethazine/Cod 6.25mg-10mg/5ml Syr UD PO PRN (10:12)
[2017-05-18] MEDS: Multivitamin With Minerals Tab PO SCH (10:12)
[2017-05-18] MEDS: guaiFENesin 600 mg ER Tab PO SCH ×2 (10:12→17:48)
[2017-05-18 11:36] LABS: BASO % 0.2 % (0.0-2.0); EOS % 0.1 % (0.0-4.0); HEMATOCRIT 35.3 % (35.0-51.0); LYMPH # 2.3 K/uL (1.0-4.3); LYMPH % 15.9 % (20.0-40.0); MEAN CELL VOLUME 72.1 fL (80.0-94.0); MEAN CORPUSCULAR HEMOGLOBIN 24.2 pg (27.0-31.0); MEAN CORPUSCULAR HGB CONC 33.5 g/dL (33.0-37.0); MEAN PLATELET VOLUME 8.8 fL (7.2-11.7); MONO # 0.7 K/uL (0.0-0.8); MONO % 5.2 % (0.0-10.0); WHITE BLOOD COUNT 14.5 K/uL (4.8-10.8)
[2017-05-18 11:45] LABS: INR 2.5
[2017-05-18 12:02] LABS: CHLORIDE 96 mmol/L (98-107); POTASSIUM 3.7 mmol/L (3.6-5.2); SODIUM 134 mmol/L (132-148)
[2017-05-18 12:04] LABS: GFR AFRICAN-AMERICAN > 60
[2017-05-18 12:05] LABS: BLOOD UREA NITROGEN 11 mg/dL (9-20); CALCIUM 9.7 mg/dl (8.6-10.4); CARBON DIOXIDE 24 mmol/L (22-30); GLUCOSE,RANDOM 132 mg/dL (75-110)
--- NOTE | 2017-05-18 16:19 | CP.PCM.PN ---
Subjective - Date & Time of Evaluation Date of Evaluation: 05/18/17 Time of Evaluation: 11:00 - Subjective Subjective: Patient seen an d examined today awake , alert, ox3, denies nay chest pain, fever, chills, palpitations, abdominal pain, N/V/ c/o sob with activity BIPAP used only at night time a febrile Objective - Vital Signs/Intake and Output Vital Signs (last 24 hours): Temp Pulse Resp BP Pulse Ox 98 F 110 H 20 116/66 95 05/18/17 07:00 05/18/17 07:16 05/18/17 07:00 05/18/17 07:00 05/18/17 07:00 Intake and Output: 05/18/17 05/18/17 06:59 18:59 Intake Total 200 Output Total 1075 Balance -875 - Medications Medications: Current Medications Al Hydrox/Mg Hydrox/Simethicone (Maalox 30 Ml) 30 ml PO Q6H PRN PRN Reason: Indigestion / Heartburn Last Admin: 05/17/17 19:25 Dose: 30 ml Albuterol Sulfate (Albuterol 0.083% Inhal Dorothea (2.5 Mg/3 Ml) Ud) 2.5 mg INH RQ4 PRN PRN Reason: SHORTNESS OF BREATH/WHEEZING Last Admin: 05/15/17 22:20 Dose: 2.5 mg Albuterol/Ipratropium (Duoneb 3 Mg/0.5 Mg (3 Ml) Ud) 3 ml INH RQ6 [facility] Last Admin: 05/18/17 13:37 Dose: 3 ml Alprazolam (Xanax) 0.5 mg PO Q12 PRN PRN Reason: Anxiety Last Admin: 05/18/17 10:12 Dose: 0.5 mg Budesonide (Pulmicort Respules) 1 mg IH RQ12 [facility] Last Admin: 05/18/17 07:15 Dose: 0.5 mg Guaifenesin (Mucinex La) 600 mg PO BID [facility] Last Admin: 05/18/17 10:12 Dose: 600 mg Home Med (Patient's Own Inhalation Solution) 2 ml INH RQ12 [facility] Last Admin: 05/18/17 07:15 Dose: Not Given Ceftriaxone Sodium 1 gm/ (Sodium Chloride) 100 mls @ 100 mls/hr IVPB DAILY [facility] Last Admin: 05/18/17 11:53 Dose: 100 mls/hr Insulin Aspart (Novolog) 0 unit SC ACHS [facility] PRN Reason: Protocol Last Admin: 05/18/17 12:23 Dose: 1 unit Magnesium Hydroxide (Milk Of Magnesia) 30 ml PO DAILY PRN PRN Reason: Constipation Metformin HCl (Glucophage) 1,000 mg PO BID [facility] Last Admin: 05/18/17 10:11 Dose: 1,000 mg Methylprednisolone (Solu-Medrol) 40 mg IVP Q8H [facility] Last Admin: 05/18/17 10:11 Dose: 40 mg Metronidazole (Flagyl) 500 mg PO Q8 [facility] Last Admin: 05/18/17 14:53 Dose: 500 mg Montelukast Sodium (Singulair) 10 mg PO HS [facility] Last Admin: 05/17/17 21:00 Dose: 10 mg Morphine Sulfate (Morphine) 2 mg IVP Q4 PRN PRN Reason: Pain, severe (8-10) Last Admin: 05/16/17 01:36 Dose: 2 mg Multivitamins/Minerals (Therapeutic-M Tab) 1 tab PO DAILY [facility] Last Admin: 05/18/17 10:12 Dose: 1 tab Oxycodone HCl (Oxycodone Immediate Release Tab) 5 mg PO Q6 PRN PRN Reason: Pain, moderate (4-7) Last Admin: 05/18/17 15:16 Dose: 5 mg Promethazine HCl/Codeine (Phenergan/Codeine Oral Syrup) 5 ml PO Q8 PRN PRN Reason: Cough Last Admin: 05/18/17 10:12 Dose: 5 ml Roflumilast (Daliresp) 500 mcg PO DAILY [facility] Last Admin: 05/18/17 10:12 Dose: 500 mcg Fluticasone/Salmeterol (Advair Diskus 250/50) 1 puff INH RBID [facility] Last Admin: 05/18/17 10:11 Dose: 1 puff - Labs Labs: 05/18/17 11:29 05/18/17 11:29 PT 28.7 SECONDS (9.7-12.2) H D 05/18/17 11:29 INR 2.5 D 05/18/17 11:29 APTT 33 SECONDS (21-34) 05/08/17 21:24 - Constitutional Appears: Well, No Acute Distress - Respiratory Exam Respiratory Exam: Decreased Breath Sounds, Wheezes, NORMAL BREATHING PATTERN - Cardiovascular Exam Cardiovascular Exam: Tachycardia, REGULAR RHYTHM, +S1, +S2 - GI/Abdominal Exam GI & Abdominal Exam: Soft (abdomen sugical site clean dry , no erythema ) Assessment and Plan - Assessment and Plan (Free Text) Assessment: 67 yr old male admitted for exc. COPD , abdominal pain Pateint clinically improved after steroids an d antibiotics D/W Dr. Garcia, stable for discharge to [facility] today and Dr. Garcia will follow the patient at [facility] SW informed pt needs to have BIPAP use PRN at facility Discharge plan discussed with pateint and at bedside, who understands an d agrees with plan
[2017-05-18 18:18] VITALS: BP 125/67; PULSE 102; TEMP 98.1
--- NOTE | 2017-05-19 03:29 | CP.PCM.DIS ---
Provider - Provider Date of Admission: 05/08/17 21:42 Attending physician: Hal Garcia MD Diagnosis - Discharge Diagnosis (1) COPD exacerbation Status: Acute Priority: Medium (2) Allergic rhinitis Status: Chronic Priority: Medium (3) Steroid-induced diabetes Status: Chronic (4) Acute and chronic respiratory failure ([id number]) Status: Acute (5) Abdominal pain Status: Acute (6) S/P colon resection Status: Acute Hospital Course - Lab Results Lab Results: Micro Results 05/08/17 21:00 Blood-Venous Blood Culture - Final NO GROWTH AFTER 5 DAYS 05/08/17 21:00 Blood-Venous Gram Stain - Final TEST NOT PERFORMED 05/08/17 21:30 Blood-Venous Blood Culture - Final NO GROWTH AFTER 5 DAYS 05/08/17 21:30 Blood-Venous Gram Stain - Final TEST NOT PERFORMED Most Recent Lab Values WBC 14.5 K/uL (4.8-10.8) H 05/18/17 11:29 RBC 4.90 Mil/uL (4.40-5.90) 05/18/17 11:29 Hgb 11.8 g/dL (12.0-18.0) L 05/18/17 11:29 Hct 35.3 % (35.0-51.0) 05/18/17 11:29 MCV 72.1 fL (80.0-94.0) L 05/18/17 11:29 MCH 24.2 pg (27.0-31.0) L 05/18/17 11:29 MCHC 33.5 g/dL (33.0-37.0) 05/18/17 11:29 RDW 25.0 % (11.5-14.5) H 05/18/17 11:29 Plt Count 434 K/uL (130-400) H 05/18/17 11:29 MPV 8.8 fL (7.2-11.7) 05/18/17 11:29 Neut % (Auto) 78.6 % (50.0-75.0) H 05/18/17 11:29 Lymph % (Auto) 15.9 % (20.0-40.0) L 05/18/17 11:29 [place] % (Auto) 5.2 % (0.0-10.0) 05/18/17 11:29 Eos % (Auto) 0.1 % (0.0-4.0) 05/18/17 11:29 Baso % (Auto) 0.2 % (0.0-2.0) 05/18/17 11:29 Neut # 11.4 K/uL (1.8-7.0) H 05/18/17 11:29 Lymph # 2.3 K/uL (1.0-4.3) 05/18/17 11:29 [place] # 0.7 K/uL (0.0-0.8) 05/18/17 11:29 Eos # 0.0 K/uL (0.0-0.7) 05/18/17 11:29 Baso # 0.0 K/uL (0.0-0.2) 05/18/17 11:29 Differential Comment 05/08/17 21:15 PT 28.7 SECONDS (9.7-12.2) H D 05/18/17 11:29 INR 2.5 D 05/18/17 11:29 APTT 33 SECONDS (21-34) 05/08/17 21:24 pO2 28 mm/Hg (30-55) L 05/08/17 21:15 VBG pH 7.43 (7.32-7.43) 05/08/17 21:15 VBG pCO2 40 mmHg (40-60) 05/08/17 21:15 VBG HCO3 25.3 mmol/L 05/08/17 21:15 VBG Total CO2 27.7 mmol/L (22-28) 05/08/17 21:15 VBG O2 Sat (Calc) 55.3 % (40-65) 05/08/17 21:15 VBG Base Excess 2.0 mmol/L (0.0-2.0) 05/08/17 21:15 VBG Potassium 4.3 mmol/L (3.6-5.2) 05/08/17 21:15 A-a O2 Difference 122.0 mm/Hg 05/08/17 21:15 Sodium 132.0 mmol/l (132-148) 05/08/17 21:15 Chloride 99.0 mmol/L (98-107) 05/08/17 21:15 Glucose 131 mg/dl (75-110) H 05/08/17 21:15 Lactate 2.2 mmol/L (0.7-2.1) H 05/08/17 21:15 FiO2 28.0 % 05/08/17 21:15 Crit Value Called To Dr. harris 05/08/17 21:15 Crit Value Called By Jaye leal 05/08/17 21:15 Crit Value Read Back Y 05/08/17 21:15 Blood Gas Notified Time 211805/08/17 21:15 Sodium 134 mmol/L (132-148) 05/18/17 11:29 Potassium 3.7 mmol/L (3.6-5.2) 05/18/17 11:29 Chloride 96 mmol/L (98-107) L 05/18/17 11:29 Carbon Dioxide 24 mmol/L (22-30) 05/18/17 11:29 Anion Gap 18 (10-20) 05/18/17 11:29 BUN 11 mg/dL (9-20) 05/18/17 11:29 Creatinine 0.5 mg/dL (0.8-1.5) L 05/18/17 11:29 Est GFR ( Amer) > 60 05/18/17 11:29 Est GFR (Non-Af Amer) > 60 05/18/17 11:29 POC Glucose (mg/dL) 169 mg/dL (65-110) H 05/18/17 17:33 Random Glucose 132 mg/dL (75-110) H 05/18/17 11:29 Calcium 9.7 mg/dl (8.6-10.4) 05/18/17 11:29 Total Bilirubin 0.6 mg/dL (0.2-1.3) 05/08/17 21:15 AST 53 U/L (17-59) 05/08/17 21:15 ALT 93 U/L (21-72) H D 05/08/17 21:15 Alkaline Phosphatase 278 U/L (38-126) H D 05/08/17 21:15 Total Protein 6.7 g/dL (6.3-8.3) 05/08/17 21:15 Albumin 4.0 g/dL (3.5-5.0) 05/08/17 21:15 Globulin 2.7 gm/dL (2.2-3.9) 09/26/17 21:15 Albumin/Globulin Ratio 1.5 (1.0-2.1) 05/08/17 21:15 Venous Blood Potassium 4.3 mmol/L (3.6-5.2) 05/08/17 21:15 Stool Occult Blood Positive (NEGATIVE) H 05/09/17 16:50 - Hospital Course Hospital Course: 67 yr old male admitted for exc. COPD , abdominal pain Pateint clinically improved after steroids an d antibiotics stable for discharge to [facility] today and I will follow the patient at [facility] SW informed pt needs to have BIPAP use PRN at facility Discharge plan discussed with pateint and at bedside, who understands an d agrees with plan Discharge Exam - Head Exam Head Exam: ATRAUMATIC, NORMAL INSPECTION, NORMOCEPHALIC Discharge Plan - Discharge Medications Prescriptions: predniSONE [predniSONE Tab] 30 mg PO DAILY #18 tab - Follow Up Plan Condition: GUARDED Disposition: REHAB FACILITY/REHAB UNIT Instructions: Heart Failure (DC), Ileostomy Care (DC), COPD (Chronic Obstructive Pulmonary Disease) (DC), Acute Abdominal Pain (DC) Additional Instructions: PLEASE CALL DR. GARCIA UPON PATIENT ARRIVAL TO THE FACILITY - BIPAP PRN - 07/18/35 PLEASE F/U WITH DR. MANZANO OFFICE IN 2 WEEK CONTINUE MEDICATION PER MED REC. PLEASE DO PT/ INR ON SUNDAY AND Q WEEKLY PLEASE DO CBC, BMP WEEKLY STARTING SUNDAY Referrals: Hal Garcia MD [Staff Provider] -
== END 2017-05-18 18:10 | DRG 189 ==
LOC: SUPCPDRO 20:40 → C.ER 20:40 → C.9E 21:42 → C.6T 22:49
PROVIDERS: ADMIT Internal Medicine; ATTEND Internal Medicine
PROC: 5A09557 Assistance with Respiratory Ventilation, Greater than 96 Consecutive Hours, Continuous Positive Airway Pressure (ICD-10-PCS; principal; 2017-05-08)
DX: J96.21 Acute and chronic respiratory failure with hypoxia (principal); J18.9 Pneumonia, unspecified organism; I13.0 Hypertensive heart and chronic kidney disease with heart failure and stage 1 through stage 4 chronic kidney disease, or unspecified chronic kidney disease; E11.22 Type 2 diabetes mellitus with diabetic chronic kidney disease; J44.0 Chronic obstructive pulmonary disease with (acute) lower respiratory infection; I50.9 Heart failure, unspecified; K94.13 Enterostomy malfunction; J44.1 Chronic obstructive pulmonary disease with (acute) exacerbation; N18.9 Chronic kidney disease, unspecified; G47.30 Sleep apnea, unspecified; E78.00 Pure hypercholesterolemia, unspecified; F41.9 Anxiety disorder, unspecified; Z87.891 Personal history of nicotine dependence; Z99.81 Dependence on supplemental oxygen; Z85.038 Personal history of other malignant neoplasm of large intestine; Y83.8 Other surgical procedures as the cause of abnormal reaction of the patient, or of later complication, without mention of misadventure at the time of the procedure; M17.0 Bilateral primary osteoarthritis of knee

== ENCOUNTER 2017-05-18 21:25 | Inpatient (IN) | payer MEDICARE ==
[2017-05-18 21:26] VITALS: BMI 27.3
[2017-05-18] MEDS ORDERED: Albuterol-Ipratrop 3 mg / 0.5 (3 ml) UD ONE ×2 (22:16→23:27)
[2017-05-18 22:30] LABS: BASO % 0.2 % (0.0-2.0); EOS % 0.2 % (0.0-4.0); HEMATOCRIT 33.9 % (35.0-51.0); LYMPH # 2.3 K/uL (1.0-4.3); MEAN CELL VOLUME 72.3 fL (80.0-94.0); MEAN CORPUSCULAR HEMOGLOBIN 24.2 pg (27.0-31.0); MEAN CORPUSCULAR HGB CONC 33.5 g/dL (33.0-37.0); MEAN PLATELET VOLUME 8.7 fL (7.2-11.7); MONO # 0.7 K/uL (0.0-0.8); MONO % 4.7 % (0.0-10.0); RED CELL DISTRIBUTION WIDTH 24.8 % (11.5-14.5); WHITE BLOOD COUNT 15.2 K/uL (4.8-10.8)
[2017-05-18 22:38] LABS: CHLORIDE 98 mmol/L (98-107)
[2017-05-18 22:39] LABS: POTASSIUM 3.5 mmol/L (3.6-5.2); SODIUM 131 mmol/L (132-148)
[2017-05-18 22:41] LABS: ALB/GLOB RATIO 1.2 (1.0-2.1); ALKALINE PHOSPHATASE 107 U/L (38-126); AST/SGOT 19 U/L (17-59); BILIRUBIN,TOTAL 0.4 mg/dL (0.2-1.3); CARBON DIOXIDE 23 mmol/L (22-30); GFR AFRICAN-AMERICAN > 60; TOTAL PROTEIN 6.6 g/dL (6.3-8.3)
[2017-05-18 22:42] LABS: ALT/SGPT 35 U/L (21-72); BLOOD UREA NITROGEN 10 mg/dL (9-20); CALCIUM 9.2 mg/dl (8.6-10.4); GLUCOSE,RANDOM 102 mg/dL (75-110); INR 2.5
[2017-05-18] MEDS ORDERED: Albuterol-Ipratrop 3 mg / 0.5 (3 ml) UD INH STA ×2 (22:55→23:05)
[2017-05-18] MEDS ORDERED: Magnesium Sulfate 1 gm in D5W 1 GM/100 ML BAG IVPB ONE (23:27)
[2017-05-18] MEDS: Magnesium Sulfate 1 gm in D5W 1 GM/100 ML BAG IVPB SCH (23:30)
[2017-05-19] MEDS: Magnesium Sulfate 1 gm in D5W 1 GM/100 ML BAG IVPB SCH (00:15)
[2017-05-19] MEDS ORDERED: Magnesium Sulfate 1 gm in D5W 1 GM/100 ML BAG IVPB ONE (00:15)
[2017-05-19] MEDS ORDERED: oxyCODONE 5 mg Immediate Release Tab PO PRN (02:48)
[2017-05-19] MEDS ORDERED: MethylPREDNISolone 40 mg Vial IVP SCH (03:00)
--- NOTE | 2017-05-19 03:10 | CP.PCM.PN ---
Subjective - Date & Time of Evaluation Date of Evaluation: 05/18/17 Time of Evaluation: 20:40 - Subjective Subjective: Pt seen and evalauted comlains of occasional abdominal pain, is having wattery stools in ileostomy s/p colon resction, less short of breath , less cough and less wheezing Objective - Vital Signs/Intake and Output Vital Signs (last 24 hours): Temp Pulse Resp BP Pulse Ox 98.7 F 121 H 19 129/68 94 L 05/18/17 21:33 05/19/17 00:56 05/19/17 00:56 05/19/17 00:56 05/19/17 00:56 - Medications Medications: Current Medications Alprazolam (Xanax) 0.5 mg PO BID [facility] Stop: 05/26/17 10:01 Budesonide (Pulmicort Respules) 1 mg IH RBID [facility] Guaifenesin (Mucinex La) 300 mg PO Q4 [facility] Home Med (Arformoterol [Brovana]) 15 mcg IH BID [facility] Insulin Aspart (Novolog) 0 unit SC ACHS [facility] PRN Reason: Protocol Metformin HCl (Glucophage) 1,000 mg PO BID [facility] Methylprednisolone (Solu-Medrol) 40 mg IVP DAILY [facility] Montelukast Sodium (Singulair) 10 mg PO HS [facility] Oxycodone HCl (Oxycodone Immediate Release Tab) 5 mg PO Q6 PRN PRN Reason: Pain, moderate (4-7) Pregabalin (Lyrica) 50 mg PO BID [facility] Roflumilast (Daliresp) 500 mcg PO DAILY [facility] Fluticasone/Salmeterol (Advair Diskus 250/50) 1 puff INH RBID [facility] - Labs Labs: 05/18/17 22:26 05/18/17 22:26 PT 28.6 SECONDS (9.7-12.2) H 05/18/17 22:26 INR 2.5 05/18/17 22:26 APTT 35 SECONDS (21-34) H 05/18/17 22:26 - Constitutional Appears: No Acute Distress, Chronically Ill - Head Exam Head Exam: ATRAUMATIC, NORMAL INSPECTION, NORMOCEPHALIC - Eye Exam Eye Exam: EOMI, Normal appearance, PERRL Pupil Exam: NORMAL ACCOMODATION, PERRL - Respiratory Exam Respiratory Exam: Decreased Breath Sounds, Rales, Rhonchi - Cardiovascular Exam Cardiovascular Exam: REGULAR RHYTHM, +S1, +S2. absent: Murmur - GI/Abdominal Exam GI & Abdominal Exam: Soft, Normal Bowel Sounds. absent: Tenderness Assessment and Plan (1) S/P colon resection Status: Acute (2) Abdominal pain Status: Acute (3) COPD (chronic obstructive pulmonary disease) with acute bronchitis Status: Acute (4) Steroid-induced diabetes Status: Chronic
--- NOTE | 2017-05-19 03:10 | CP.PCM.PN ---
Subjective - Date & Time of Evaluation Date of Evaluation: 05/19/17 Time of Evaluation: 21:00 Objective - Vital Signs/Intake and Output Vital Signs (last 24 hours): Temp Pulse Resp BP Pulse Ox 98.7 F 121 H 19 129/68 94 L 05/18/17 21:33 05/19/17 00:56 05/19/17 00:56 05/19/17 00:56 05/19/17 00:56 - Medications Medications: Current Medications Alprazolam (Xanax) 0.5 mg PO BID [facility] Stop: 05/26/17 10:01 Budesonide (Pulmicort Respules) 1 mg IH RBID [facility] Guaifenesin (Mucinex La) 300 mg PO Q4 [facility] Home Med (Arformoterol [Brovana]) 15 mcg IH BID [facility] Insulin Aspart (Novolog) 0 unit SC ACHS [facility] PRN Reason: Protocol Metformin HCl (Glucophage) 1,000 mg PO BID [facility] Methylprednisolone (Solu-Medrol) 40 mg IVP DAILY [facility] Montelukast Sodium (Singulair) 10 mg PO HS [facility] Oxycodone HCl (Oxycodone Immediate Release Tab) 5 mg PO Q6 PRN PRN Reason: Pain, moderate (4-7) Pregabalin (Lyrica) 50 mg PO BID [facility] Roflumilast (Daliresp) 500 mcg PO DAILY [facility] Fluticasone/Salmeterol (Advair Diskus 250/50) 1 puff INH RBID [facility] - Labs Labs: 05/18/17 22:26 05/18/17 22:26 PT 28.6 SECONDS (9.7-12.2) H 05/18/17 22:26 INR 2.5 05/18/17 22:26 APTT 35 SECONDS (21-34) H 05/18/17 22:26 Assessment and Plan (1) S/P colon resection Status: Acute (2) Abdominal pain Status: Acute (3) COPD (chronic obstructive pulmonary disease) with acute bronchitis Status: Acute (4) Steroid-induced diabetes Status: Chronic
--- NOTE | 2017-05-19 03:20 | C.PDOC ---
History Of Present Illness 67 year old male who presents to the ER with COPD exacerbation. Patient was just discharged today for the same complaint and sent back to [place] where he developed acute SOB. As per family, he received no treatment at [place] which prompted them to call 911. Denies abdominal pain or chest pain. Chief Complaint (Nursing): Shortness Of Breath History Per: Patient, Family History/Exam Limitations: no limitations Current Symptoms Are (Timing): Still Present Initiating Event: Other (not known) Current Respiratory Medications: None Associated Symptoms: denies: Fever, Chills Recent travel outside of the [place]: No Past Medical History Reviewed: Historical Data, Nursing Documentation, Vital Signs Vital Signs: Last Vital Signs Temp 97.6 F 05/20/17 07:00 Pulse 68 05/20/17 08:20 Resp 20 05/20/17 07:00 BP 114/80 05/20/17 07:00 Pulse Ox 98 05/20/17 07:00 - Medical History PMH: Anxiety, Arthritis, Asthma, Bronchitis, CHF, COPD, Diabetes, Emphysema, HTN , Hypercholesterolemia, Pneumonia, Chronic Kidney Disease, Sleep Apnea - [facility] Procedures ASSISTANCE WITH RESPIRATORY VENTILATION, 24-96 HRS, CPAP (01/24/17) ASSISTANCE WITH RESPIRATORY VENTILATION, <24 HRS, CPAP (07/08/16) ASSISTANCE WITH RESPIRATORY VENTILATION, >96 HRS, CPAP (03/03/17) CONTINUOUS INVASIVE MECHANICAL VENTILATION <96 CONSEC HRS (11/29/14) DILATION OF RIGHT URETER WITH INTRALUMINAL DEVICE, ENDO (03/20/17) EXCISION OF SIGMOID COLON, ENDO, DIAGN (03/20/17) EXCISION OF STOMACH, ENDO, DIAGN (03/20/17) EXCISION OF TRANSVERSE COLON, ENDO, DIAGN (03/20/17) INFLUENZA VACCINATION (06/02/14) INSERT ENDOTRACHEAL TUBE (11/29/14) LARYGNOSCOPY AND OTH TRACHEOSCOPY (04/18/15) MEASURE OF CARDIAC SAMPL & PRESSURE, L HEART, PERC APPROACH (12/01/15) NON-INVASIVE MECHANICAL VENTILATION (04/18/15) RESECTION OF SIGMOID COLON, OPEN APPROACH (03/20/17) RESPIRATORY VENTILATION, GREATER THAN 96 CONSECUTIVE HOURS (03/20/17) Family History: States: Unknown Family Hx - Social History Hx Tobacco Use: Yes (8 years ppd smoker. quit 1.5 years ago) Hx Alcohol Use: No Hx Substance Use: No - Immunization History Hx Tetanus Toxoid Vaccination: Yes Hx Influenza Vaccination: No Hx Pneumococcal Vaccination: Yes (12/01/2014) Review Of Systems Constitutional: Negative for: Fever, Chills Cardiovascular: Negative for: Chest Pain Respiratory: Positive for: Shortness of Breath Gastrointestinal: Negative for: Abdominal Pain Physical Exam - Physical Exam Appears: Other (Moderate distress) Skin: Normal Color, Warm, Dry Head: Atraumatic, Normacephalic Oral Mucosa: Moist Neck: Normal, Supple Chest: Symmetrical Cardiovascular: Rhythm Regular Respiratory: No Rales, No Rhonchi, Wheezing (Bilateral expiratory wheezes with good entry) Gastrointestinal/Abdominal: Soft, No Tenderness Extremity: No Pedal Edema Neurological/Psych: Oriented x3, Normal Speech, Normal Cognition ED Course And Treatment - Laboratory Results Result Diagrams: 05/18/17 22:26 05/18/17 22:26 O2 Sat by Pulse Oximetry: 94 (Room air) Pulse Ox Interpretation: Normal Progress Note: EKG, blood work, and CXR ordered. Critical Care Time - Critical Care Note Total Time (in mins): 30 Documented critical care: time excludes all time spent performing seperately billable procedures. Disposition - Disposition Disposition: HOSPITALIZED Disposition Time: 00:30 Condition: STABLE - Clinical Impression Clinical Impression: COPD exacerbation - Scribe Statement The provider has reviewed the documentation as recorded by the Scribilya Hackett All medical record entries made by the Scribe were at my direction and personally dictated by me. I have reviewed the chart and agree that the record accurately reflects my personal performance of the history, physical exam, medical decision making, and the department course for this patient. I have also personally directed, reviewed, and agree with the discharge instructions and disposition.
[2017-05-19] MEDS ORDERED: guaiFENesin 600 mg ER Tab PO SCH (04:00)
[2017-05-19] MEDS ORDERED: (Novolog) Insulin Aspart, Recombinant 100 u/ml 10 ml vial SC SCH (07:30)
[2017-05-19] MEDS ORDERED: Fluticasone-Salmeterol 250-50mcg Diskus INH SCH (08:00)
[2017-05-19] MEDS ORDERED: Budesonide 0.5 mg/2 ml Inhal Susp UD IH SCH (08:00)
[2017-05-19] MEDS ORDERED: Influenza Vaccine 60 mcg/0.5 mL SYR (4YR UP) IM ONE (10:00)
[2017-05-19] MEDS ORDERED: Home Med 1 UNIT (Arformoterol [Brovana] 15 MCG) IH SCH (10:00)
[2017-05-19] MEDS: Albuterol-Ipratrop 3 mg / 0.5 (3 ml) UD INH PRN (10:31)
[2017-05-19] MEDS: MethylPREDNISolone 40 mg Vial IVP SCH (10:52)
--- NOTE | 2017-05-19 11:31 | RAD ---
PROCEDURE: CHEST RADIOGRAPH, 1 VIEW HISTORY: BED 5 SHORTNESS OF BREATH COMPARISON: Comparison is made to the previous exam dated 05/15/2017 FINDINGS: LUNGS: No evidence of new infiltrate or consolidation in the lungs. PLEURA: No pneumothorax or pleural fluid seen. CARDIOVASCULAR: Normal. OSSEOUS STRUCTURES: No significant abnormalities. VISUALIZED UPPER ABDOMEN: Normal. OTHER FINDINGS: None. IMPRESSION: No significant interval change compared to the previous exam.
[2017-05-19] MEDS: (Novolog) Insulin Aspart, Recombinant 100 u/ml 10 ml vial SC SCH ×3 (12:52→21:56)
[2017-05-19] MEDS: guaiFENesin 600 mg ER Tab PO SCH ×2 (13:11→21:55)
[2017-05-19] MEDS: Fluticasone-Salmeterol 250-50mcg Diskus INH SCH (19:36)
[2017-05-19] MEDS: BROVANA 15 MCG/2 ML INH SCH (19:38)
[2017-05-19] MEDS: Budesonide 0.5 mg/2 ml Inhal Susp UD IH SCH (19:39)
[2017-05-19] MEDS: oxyCODONE 5 mg Immediate Release Tab PO PRN (21:59)
[2017-05-20] MEDS: Albuterol-Ipratrop 3 mg / 0.5 (3 ml) UD INH PRN (07:30)
[2017-05-20] MEDS: Budesonide 0.5 mg/2 ml Inhal Susp UD IH SCH ×2 (07:30→19:26)
[2017-05-20] MEDS: (Novolog) Insulin Aspart, Recombinant 100 u/ml 10 ml vial SC SCH ×4 (07:58→22:00)
[2017-05-20] MEDS: Fluticasone-Salmeterol 250-50mcg Diskus INH SCH ×2 (08:04→19:26)
[2017-05-20] MEDS: MethylPREDNISolone 40 mg Vial IVP SCH (09:34)
[2017-05-20] MEDS: guaiFENesin 600 mg ER Tab PO SCH ×2 (09:35→21:39)
[2017-05-20] MEDS ORDERED: Influenza Vaccine 60 mcg/0.5 mL SYR (4YR UP) IM ONE (10:00)
[2017-05-20 12:34] LABS: INR 1.5
[2017-05-20] MEDS: oxyCODONE 5 mg Immediate Release Tab PO PRN (16:17)
[2017-05-20] MEDS: BROVANA 15 MCG/2 ML INH SCH (19:26)
--- NOTE | 2017-05-20 23:18 | CP.PCM.HP ---
History of Present Illness - History of Present Illness History of Present Illness: 67 year old male who presents to the ER with COPD exacerbation. Patient was just discharged today for the same complaint and sent back to [place] where he developed acute SOB. As per family, he received no treatment at [place] which prompted them to call 911. Denies abdominal pain or chest pain. Past Patient History - Infectious Disease Hx of Infectious Diseases: None - Past Medical History & Family History Past Medical History?: Yes - Past Social History Smoking Status: Former Smoker - CARDIAC Hx Congestive Heart Failure: Yes Hx Hypercholesterolemia: Yes Hx Hypertension: Yes - PULMONARY Hx Asthma: Yes Hx Bronchitis: Yes Hx Chronic Obstructive Pulmonary Disease (COPD): Yes Hx Emphysema: Yes Hx Pneumonia: Yes Hx Sleep Apnea: Yes - NEUROLOGICAL Hx Neurological Disorder: No - HEENT Hx HEENT Problems: Yes Hx Cataracts: Yes (left cataract removed, r cataract) Other/Comment: wears eyeglasses for distance - RENAL Hx Chronic Kidney Disease: Yes - ENDOCRINE/METABOLIC Hx Endocrine Disorders: Yes Hx Diabetes Mellitus Type 2: Yes - HEMATOLOGICAL/ONCOLOGICAL Hx Blood Disorders: Yes Other/Comment: intestinal ademona - INTEGUMENTARY Hx Dermatological Problems: No - MUSCULOSKELETAL/RHEUMATOLOGICAL Hx Arthritis: Yes - GASTROINTESTINAL Hx Gastrointestinal Disorders: Yes Hx Bowel Surgery: Yes Hx Colostomy: Yes Hx Gastritis: No - PSYCHIATRIC Hx Anxiety: Yes Hx Substance Use: No - SURGICAL HISTORY Hx Surgeries: Yes Hx Cardiac Catheterization: Yes (11/2015) Other/Comment: colon resection with right ileostomy - ANESTHESIA Hx Anesthesia: Yes Hx Anesthesia Reactions: No (pt dont know. aware) Hx Malignant Hyperthermia: No Meds Allergies/Adverse Reactions: Allergies Allergy/AdvReac Type Severity Reaction Status Date / Time acetaminophen [From Tylenol] Allergy RASH Verified 05/18/17 21:40 FISH Allergy SWELLING Verified 05/18/17 21:40 shrimp Allergy SHORTNESS Verified 05/18/17 21:40 OF BREATH IV dye Allergy ANAPHYLAXIS Uncoded 05/18/17 21:40 Results - Vital Signs Recent Vital Signs: Last Vital Signs Temp 97.5 F L 05/20/17 15:19 Pulse 140 H 05/20/17 15:19 Resp 20 05/20/17 15:19 BP 102/67 05/20/17 15:19 Pulse Ox 96 05/20/17 15:19 - Labs Result Diagrams: 05/18/17 22:26 05/18/17 22:26 Labs: Laboratory Results - last 24 hr 05/20/17 05/20/17 05/20/17 06:45 11:56 12:03 PT 17.3 H D INR 1.5 D APTT 32 POC Glucose (mg/dL) 103 132 H 05/20/17 05/20/17 17:10 21:57 PT INR APTT POC Glucose (mg/dL) 182 H 163 H Assessment & Plan (1) S/P colon resection Status: Acute (2) Abdominal pain Status: Acute (3) COPD (chronic obstructive pulmonary disease) with acute bronchitis Status: Acute (4) Steroid-induced diabetes Status: Chronic
[2017-05-21] MEDS: Budesonide 0.5 mg/2 ml Inhal Susp UD IH SCH ×2 (07:49→19:32)
[2017-05-21] MEDS: Fluticasone-Salmeterol 250-50mcg Diskus INH SCH ×2 (07:51→19:32)
[2017-05-21] MEDS: (Novolog) Insulin Aspart, Recombinant 100 u/ml 10 ml vial SC SCH ×4 (08:13→22:01)
[2017-05-21 08:24] LABS: INR 1.1
[2017-05-21] MEDS: guaiFENesin 600 mg ER Tab PO SCH ×2 (09:54→22:01)
[2017-05-21] MEDS: MethylPREDNISolone 40 mg Vial IVP SCH (09:54)
[2017-05-21] MEDS: oxyCODONE 5 mg Immediate Release Tab PO PRN ×2 (15:08→22:58)
[2017-05-21] MEDS: Albuterol-Ipratrop 3 mg / 0.5 (3 ml) UD INH PRN ×2 (16:09→19:32)
[2017-05-21] MEDS: Aluminum Hydroxide/Magnesium Hydroxide Susp (30 mL) PO PRN (18:08)
[2017-05-21] MEDS: BROVANA 15 MCG/2 ML INH SCH (19:32)
--- NOTE | 2017-05-21 22:58 | CP.PCM.PN ---
Subjective - Date & Time of Evaluation Date of Evaluation: 05/21/17 Time of Evaluation: 19:35 Objective - Vital Signs/Intake and Output Vital Signs (last 24 hours): Temp Pulse Resp BP Pulse Ox 97.7 F 98 H 20 110/76 97 05/21/17 16:00 05/21/17 19:34 05/21/17 16:00 05/21/17 16:00 05/21/17 16:00 Intake and Output: 05/21/17 05/22/17 18:59 06:59 Intake Total 240 Balance 240 - Medications Medications: Current Medications Al Hydrox/Mg Hydrox/Simethicone (Maalox 30 Ml) 30 ml PO QID PRN PRN Reason: Indigestion / Heartburn Last Admin: 05/21/17 18:08 Dose: 30 ml Albuterol/Ipratropium (Duoneb 3 Mg/0.5 Mg (3 Ml) Ud) 3 ml INH RQ6 PRN PRN Reason: Shortness of Breath Last Admin: 05/21/17 19:32 Dose: 3 ml Alprazolam (Xanax) 0.5 mg PO BID [facility] Last Admin: 05/21/17 17:56 Dose: 0.5 mg Budesonide (Pulmicort Respules) 1 mg IH RBID [facility] Last Admin: 05/21/17 19:32 Dose: 0.5 mg Guaifenesin (Mucinex La) 600 mg PO Q12 [facility] Last Admin: 05/21/17 22:01 Dose: 600 mg Home Med (Patient's Own Inhalation Solution) 1 ml INH BID [facility] Last Admin: 05/21/17 19:32 Dose: Not Given Insulin Aspart (Novolog) 0 unit SC ACHS [facility] PRN Reason: Protocol Last Admin: 05/21/17 22:01 Dose: Not Given Metformin HCl (Glucophage) 1,000 mg PO BID [facility] Last Admin: 05/21/17 17:57 Dose: 1,000 mg Methylprednisolone (Solu-Medrol) 40 mg IVP DAILY [facility] Last Admin: 05/21/17 09:54 Dose: 40 mg Montelukast Sodium (Singulair) 10 mg PO HS [facility] Last Admin: 05/21/17 22:02 Dose: 10 mg Oxycodone HCl (Oxycodone Immediate Release Tab) 5 mg PO Q6 PRN PRN Reason: Pain, moderate (4-7) Last Admin: 05/21/17 15:08 Dose: 5 mg Pregabalin (Lyrica) 50 mg PO BID [facility] Last Admin: 05/21/17 17:56 Dose: 50 mg Roflumilast (Daliresp) 500 mcg PO DAILY [facility] Last Admin: 05/21/17 09:54 Dose: 500 mcg Fluticasone/Salmeterol (Advair Diskus 250/50) 1 puff INH RBID [facility] Last Admin: 05/21/17 19:32 Dose: 1 puff - Labs Labs: 05/18/17 22:26 05/18/17 22:26 PT 12.9 SECONDS (9.7-12.2) H 05/21/17 08:10 INR 1.1 05/21/17 08:10 APTT 29 SECONDS (21-34) 05/21/17 08:10 Assessment and Plan (1) S/P colon resection Status: Acute (2) Abdominal pain Status: Acute (3) COPD (chronic obstructive pulmonary disease) with acute bronchitis Status: Acute (4) Steroid-induced diabetes Status: Chronic
[2017-05-22] MEDS: (Novolog) Insulin Aspart, Recombinant 100 u/ml 10 ml vial SC SCH ×4 (08:10→21:44)
[2017-05-22] MEDS: Budesonide 0.5 mg/2 ml Inhal Susp UD IH SCH ×2 (08:38→19:16)
[2017-05-22] MEDS: Fluticasone-Salmeterol 250-50mcg Diskus INH SCH ×2 (08:38→19:17)
[2017-05-22] MEDS: BROVANA 15 MCG/2 ML INH SCH ×3 (08:38→19:16)
[2017-05-22] MEDS: guaiFENesin 600 mg ER Tab PO SCH ×2 (10:29→22:21)
[2017-05-22] MEDS: MethylPREDNISolone 40 mg Vial IVP SCH (10:29)
[2017-05-22 11:51] LABS: BASO % 0.3 % (0.0-2.0); EOS # 0.2 K/uL (0.0-0.7); EOS % 1.5 % (0.0-4.0); HEMATOCRIT 35.1 % (35.0-51.0); LYMPH # 2.8 K/uL (1.0-4.3); LYMPH % 22.3 % (20.0-40.0); MEAN CELL VOLUME 72.9 fL (80.0-94.0); MEAN CORPUSCULAR HEMOGLOBIN 24.5 pg (27.0-31.0); MEAN CORPUSCULAR HGB CONC 33.6 g/dL (33.0-37.0); MEAN PLATELET VOLUME 9.1 fL (7.2-11.7); MONO # 0.8 K/uL (0.0-0.8); MONO % 6.1 % (0.0-10.0); RED CELL DISTRIBUTION WIDTH 23.9 % (11.5-14.5); WHITE BLOOD COUNT 12.7 K/uL (4.8-10.8)
[2017-05-22 12:15] LABS: CHLORIDE 98 mmol/L (98-107); POTASSIUM 3.8 mmol/L (3.6-5.2); SODIUM 134 mmol/L (132-148)
[2017-05-22 12:18] LABS: CARBON DIOXIDE 22 mmol/L (22-30); GFR AFRICAN-AMERICAN > 60
[2017-05-22 12:19] LABS: BLOOD UREA NITROGEN 9 mg/dL (9-20); CALCIUM 9.5 mg/dl (8.6-10.4); GLUCOSE,RANDOM 140 mg/dL (75-110)
[2017-05-22] MEDS: Albuterol-Ipratrop 3 mg / 0.5 (3 ml) UD INH PRN ×2 (13:32→19:16)
[2017-05-22] MEDS: Aluminum Hydroxide/Magnesium Hydroxide Susp (30 mL) PO PRN ×2 (14:50→22:24)
[2017-05-22] MEDS: oxyCODONE 5 mg Immediate Release Tab PO PRN (22:21)
--- NOTE | 2017-05-22 23:08 | CP.PCM.PN ---
Subjective - Date & Time of Evaluation Date of Evaluation: 05/22/17 Time of Evaluation: 21:45 - Subjective Subjective: Pt is waiting for placement in subacute rehab, he is feeling better, less short of breath, less abdominal pain Objective - Vital Signs/Intake and Output Vital Signs (last 24 hours): Temp Pulse Resp BP Pulse Ox 98.5 F 117 H 20 102/72 95 05/22/17 15:07 05/22/17 16:00 05/22/17 15:07 05/22/17 15:07 05/22/17 15:07 Intake and Output: 05/22/17 05/23/17 18:59 06:59 Intake Total 240 Output Total 350 Balance -110 - Medications Medications: Current Medications Al Hydrox/Mg Hydrox/Simethicone (Maalox 30 Ml) 30 ml PO QID PRN PRN Reason: Indigestion / Heartburn Last Admin: 05/22/17 22:24 Dose: 30 ml Albuterol/Ipratropium (Duoneb 3 Mg/0.5 Mg (3 Ml) Ud) 3 ml INH RQ6 PRN PRN Reason: Shortness of Breath Last Admin: 05/22/17 19:16 Dose: 3 ml Alprazolam (Xanax) 0.5 mg PO BID [facility] Last Admin: 05/22/17 18:45 Dose: 0.5 mg Budesonide (Pulmicort Respules) 1 mg IH RBID [facility] Last Admin: 05/22/17 19:16 Dose: 0.5 mg Guaifenesin (Mucinex La) 600 mg PO Q12 [facility] Last Admin: 05/22/17 22:21 Dose: 600 mg Home Med (Patient's Own Inhalation Solution) 1 ml INH BID [facility] Last Admin: 05/22/17 19:16 Dose: Not Given Insulin Aspart (Novolog) 0 unit SC ACHS [facility] PRN Reason: Protocol Last Admin: 05/22/17 21:44 Dose: Not Given Metformin HCl (Glucophage) 1,000 mg PO BID [facility] Last Admin: 05/22/17 18:45 Dose: 1,000 mg Methylprednisolone (Solu-Medrol) 40 mg IVP DAILY [facility] Last Admin: 05/22/17 10:29 Dose: 40 mg Montelukast Sodium (Singulair) 10 mg PO HS [facility] Last Admin: 05/22/17 22:21 Dose: 10 mg Oxycodone HCl (Oxycodone Immediate Release Tab) 5 mg PO Q6 PRN PRN Reason: Pain, moderate (4-7) Last Admin: 05/22/17 22:21 Dose: 5 mg Pregabalin (Lyrica) 50 mg PO BID [facility] Last Admin: 05/22/17 18:45 Dose: 50 mg Roflumilast (Daliresp) 500 mcg PO DAILY [facility] Last Admin: 05/22/17 10:30 Dose: 500 mcg Fluticasone/Salmeterol (Advair Diskus 250/50) 1 puff INH RBID [facility] Last Admin: 05/22/17 19:17 Dose: 1 puff - Labs Labs: 05/22/17 11:40 05/22/17 11:40 PT 11.1 SECONDS (9.7-12.2) 05/22/17 11:40 INR 1.0 05/22/17 11:40 APTT 29 SECONDS (21-34) 05/21/17 08:10 - Constitutional Appears: No Acute Distress - Head Exam Head Exam: ATRAUMATIC, NORMAL INSPECTION, NORMOCEPHALIC - Eye Exam Eye Exam: EOMI, Normal appearance, PERRL Pupil Exam: NORMAL ACCOMODATION, PERRL - Respiratory Exam Respiratory Exam: Decreased Breath Sounds, Wheezes - Cardiovascular Exam Cardiovascular Exam: REGULAR RHYTHM, +S1, +S2. absent: Murmur - GI/Abdominal Exam GI & Abdominal Exam: Soft, Normal Bowel Sounds. absent: Tenderness Assessment and Plan (1) S/P colon resection Status: Acute (2) Abdominal pain Status: Acute (3) COPD (chronic obstructive pulmonary disease) with acute bronchitis Status: Acute (4) Steroid-induced diabetes Status: Chronic
[2017-05-23] MEDS: oxyCODONE 5 mg Immediate Release Tab PO PRN (05:26)
[2017-05-23] MEDS: Budesonide 0.5 mg/2 ml Inhal Susp UD IH SCH ×2 (07:25→19:31)
[2017-05-23] MEDS: Albuterol-Ipratrop 3 mg / 0.5 (3 ml) UD INH PRN ×3 (07:25→19:31)
[2017-05-23] MEDS: BROVANA 15 MCG/2 ML INH SCH ×2 (07:25→19:32)
[2017-05-23] MEDS: Fluticasone-Salmeterol 250-50mcg Diskus INH SCH ×2 (07:25→19:31)
[2017-05-23] MEDS: (Novolog) Insulin Aspart, Recombinant 100 u/ml 10 ml vial SC SCH ×4 (07:35→21:32)
[2017-05-23] MEDS: guaiFENesin 600 mg ER Tab PO SCH ×2 (10:56→21:39)
[2017-05-23] MEDS: MethylPREDNISolone 40 mg Vial IVP SCH (10:56)
[2017-05-23 11:28] LABS: INR 0.9
--- NOTE | 2017-05-23 12:26 | CP.PCM.PN ---
Subjective - Date & Time of Evaluation Date of Evaluation: 05/23/17 Time of Evaluation: 11:35 - Subjective Subjective: patient seen an dexamined today , sob improved, denies any chest pain, abdominal pain, N/V/ no overnight events reported by RN Objective - Vital Signs/Intake and Output Vital Signs (last 24 hours): Temp Pulse Resp BP Pulse Ox 97.5 F L 107 H 18 97/69 L 100 05/23/17 07:10 05/23/17 07:10 05/23/17 07:10 05/23/17 07:10 05/23/17 07:10 Intake and Output: 05/23/17 05/23/17 06:59 18:59 Intake Total 480 Output Total 1250 Balance -770 - Medications Medications: Current Medications Al Hydrox/Mg Hydrox/Simethicone (Maalox 30 Ml) 30 ml PO QID PRN PRN Reason: Indigestion / Heartburn Last Admin: 05/22/17 22:24 Dose: 30 ml Albuterol/Ipratropium (Duoneb 3 Mg/0.5 Mg (3 Ml) Ud) 3 ml INH RQ6 PRN PRN Reason: Shortness of Breath Last Admin: 05/23/17 07:25 Dose: 3 ml Alprazolam (Xanax) 0.5 mg PO BID [facility] Last Admin: 05/23/17 10:55 Dose: 0.5 mg Budesonide (Pulmicort Respules) 1 mg IH RBID [facility] Last Admin: 05/23/17 07:25 Dose: 0.5 mg Guaifenesin (Mucinex La) 600 mg PO Q12 [facility] Last Admin: 05/23/17 10:56 Dose: 600 mg Home Med (Patient's Own Inhalation Solution) 1 ml INH BID [facility] Last Admin: 05/22/17 19:16 Dose: Not Given Insulin Aspart (Novolog) 0 unit SC ACHS [facility] PRN Reason: Protocol Last Admin: 05/22/17 21:44 Dose: Not Given Metformin HCl (Glucophage) 1,000 mg PO BID [facility] Last Admin: 05/23/17 10:56 Dose: 1,000 mg Methylprednisolone (Solu-Medrol) 40 mg IVP DAILY [facility] Last Admin: 05/23/17 10:56 Dose: 40 mg Montelukast Sodium (Singulair) 10 mg PO HS [facility] Last Admin: 05/22/17 22:21 Dose: 10 mg Oxycodone HCl (Oxycodone Immediate Release Tab) 5 mg PO Q6 PRN PRN Reason: Pain, moderate (4-7) Last Admin: 05/23/17 05:26 Dose: 5 mg Pregabalin (Lyrica) 50 mg PO BID [facility] Last Admin: 05/23/17 10:56 Dose: 50 mg Roflumilast (Daliresp) 500 mcg PO DAILY [facility] Last Admin: 05/23/17 10:56 Dose: 500 mcg Fluticasone/Salmeterol (Advair Diskus 250/50) 1 puff INH RBID [facility] Last Admin: 05/23/17 07:25 Dose: 1 puff - Labs Labs: 05/22/17 11:40 05/22/17 11:40 PT 10.5 SECONDS (9.7-12.2) 05/23/17 11:11 INR 0.9 05/23/17 11:11 APTT 29 SECONDS (21-34) 05/21/17 08:10 - Constitutional Appears: Well, No Acute Distress - Respiratory Exam Respiratory Exam: Decreased Breath Sounds, NORMAL BREATHING PATTERN - Cardiovascular Exam Cardiovascular Exam: Tachycardia, +S1, +S2 - GI/Abdominal Exam GI & Abdominal Exam: Soft, Normal Bowel Sounds (ileostomy R LQ , surgical site clean , dry, wound well healed ) Assessment and Plan - Assessment and Plan (Free Text) Assessment: A/P 67 yr old male admitted for sob/ exc. COPD Patient clinically improved after iv steroids [place] [facility] [place] , pt and in agreement D/W Dr. Garcia, [place] [facility] [place] the [place] [facility] [place] CM made aware patient needs BIPAP PRN and as per CM- Pat , BIPAP will be available for use upon pat arrival to the facility
[2017-05-23 15:55] VITALS: RESP 20
--- NOTE | 2017-05-23 23:25 | CP.PCM.DIS ---
Provider - Provider Date of Admission: 05/19/17 13:49 Attending physician: Hal Garcia MD Diagnosis - Discharge Diagnosis (1) S/P colon resection Status: Acute (2) Abdominal pain Status: Acute (3) COPD (chronic obstructive pulmonary disease) with acute bronchitis Status: Acute (4) Steroid-induced diabetes Status: Chronic Hospital Course - Lab Results Lab Results: Most Recent Lab Values WBC 12.7 K/uL (4.8-10.8) H 05/22/17 11:40 RBC 4.81 Mil/uL (4.40-5.90) 05/22/17 11:40 Hgb 11.8 g/dL (12.0-18.0) L 05/22/17 11:40 Hct 35.1 % (35.0-51.0) 05/22/17 11:40 MCV 72.9 fL (80.0-94.0) L 05/22/17 11:40 MCH 24.5 pg (27.0-31.0) L 05/22/17 11:40 MCHC 33.6 g/dL (33.0-37.0) 05/22/17 11:40 RDW 23.9 % (11.5-14.5) H 05/22/17 11:40 Plt Count 378 K/uL (130-400) 05/22/17 11:40 MPV 9.1 fL (7.2-11.7) 05/22/17 11:40 Neut % (Auto) 69.8 % (50.0-75.0) 05/22/17 11:40 Lymph % (Auto) 22.3 % (20.0-40.0) 05/22/17 11:40 George % (Auto) 6.1 % (0.0-10.0) 05/22/17 11:40 Eos % (Auto) 1.5 % (0.0-4.0) 05/22/17 11:40 Baso % (Auto) 0.3 % (0.0-2.0) 05/22/17 11:40 Neut # 8.8 K/uL (1.8-7.0) H 05/22/17 11:40 Lymph # 2.8 K/uL (1.0-4.3) 05/22/17 11:40 George # 0.8 K/uL (0.0-0.8) 05/22/17 11:40 Eos # 0.2 K/uL (0.0-0.7) 05/22/17 11:40 Baso # 0.0 K/uL (0.0-0.2) 05/22/17 11:40 PT 10.5 SECONDS (9.7-12.2) 05/23/17 11:11 INR 0.9 05/23/17 11:11 APTT 29 SECONDS (21-34) 05/21/17 08:10 Sodium 134 mmol/L (132-148) 05/22/17 11:40 Potassium 3.8 mmol/L (3.6-5.2) 05/22/17 11:40 Chloride 98 mmol/L (98-107) 05/22/17 11:40 Carbon Dioxide 22 mmol/L (22-30) 05/22/17 11:40 Anion Gap 18 (10-20) 05/22/17 11:40 BUN 9 mg/dL (9-20) 05/22/17 11:40 Creatinine 0.6 mg/dL (0.8-1.5) L 05/22/17 11:40 Est GFR ( Amer) > 60 05/22/17 11:40 Est GFR (Non-Af Amer) > 60 05/22/17 11:40 POC Glucose (mg/dL) 138 mg/dL (65-110) H 05/23/17 21:06 Random Glucose 140 mg/dL (75-110) H 05/22/17 11:40 Calcium 9.5 mg/dl (8.6-10.4) 05/22/17 11:40 Total Bilirubin 0.4 mg/dL (0.2-1.3) 05/18/17 22:26 AST 19 U/L (17-59) 05/18/17 22:26 ALT 35 U/L (21-72) 05/18/17 22:26 Alkaline Phosphatase 107 U/L (38-126) 05/18/17 22:26 Troponin I < 0.0120 ng/mL (0.00-0.120) 05/18/17 23:00 NT-Pro-B Natriuret Pep 84.8 pg/mL (0-900) 05/18/17 22:26 Total Protein 6.6 g/dL (6.3-8.3) 05/18/17 22:26 Albumin 3.6 g/dL (3.5-5.0) 05/18/17 22:26 Globulin 3.0 gm/dL (2.2-3.9) 05/18/17 22:26 Albumin/Globulin Ratio 1.2 (1.0-2.1) 05/18/17 22:26 Influenza Typ A,B (EIA) Negative for flu a/b (NEGATIVE) 05/18/17 23:11 - Hospital Course Hospital Course: A/P 67 yr old male admitted for sob/ exc. COPD Patient clinically improved after iv steroids Patient [facility] [place] , pt and in agreement stable for discharge to [facility] [place] and I will follow the patient at [facility] [place] CM made aware patient needs BIPAP PRN and as per - Pat , BIPAP will be available for use upon pat arrival to the facility Discharge Exam - Head Exam Head Exam: ATRAUMATIC, NORMAL INSPECTION, NORMOCEPHALIC Discharge Plan - Discharge Medications Prescriptions: Warfarin [Coumadin] 5 mg PO 1800 #10 tab - Follow Up Plan Condition: STABLE Disposition: HOME/ ROUTINE Instructions: Warfarin (By mouth), Heart Failure (DC), Heart Healthy Diet (DC) , COPD (Chronic Obstructive Pulmonary Disease) (DC) Additional Instructions: PLEASE ADMIT PATIENT TO DR. GARCIA SERVICE, CALL DR. GARCIA UPON PATIENT ARRIVAL TO THE FACILITY PT NEEDS TO F/U WITH DR. MANZANO OFFICE IN 1-2 WEEKS - CALL AND MAKE APPOINTEMNT BIPAP PRN -07/18/28% PLEASE DO PT/INR Q DAY UNTIL INR ABOVE 2 AND THEN WEEKLY CONTINUE MEDICATION PER MED. REC PLEASE START COUMADIN TOMORROW, GIVEN COUMADIN DOSE TODAY Referrals: Hal Garcia MD [Staff Provider] -
[2017-05-24 00:59] VITALS: BP 105/71; PULSE 110; TEMP 98.1; O2SAT 100
== END 2017-05-24 00:40 | DRG 191 ==
LOC: C.ER 21:25 → C.6T 05-19 00:25 → OBSVTOIN 05-19 13:49
PROVIDERS: ADMIT Internal Medicine; ATTEND Internal Medicine
DX: J44.0 Chronic obstructive pulmonary disease with (acute) lower respiratory infection (principal); I13.0 Hypertensive heart and chronic kidney disease with heart failure and stage 1 through stage 4 chronic kidney disease, or unspecified chronic kidney disease; E11.22 Type 2 diabetes mellitus with diabetic chronic kidney disease; I50.9 Heart failure, unspecified; J20.9 Acute bronchitis, unspecified; J44.1 Chronic obstructive pulmonary disease with (acute) exacerbation; T38.0X5A Adverse effect of glucocorticoids and synthetic analogues, initial encounter; E78.00 Pure hypercholesterolemia, unspecified; G47.30 Sleep apnea, unspecified; N18.9 Chronic kidney disease, unspecified; Z87.01 Personal history of pneumonia (recurrent); Z87.891 Personal history of nicotine dependence; Z93.3 Colostomy status; Z79.4 Long term (current) use of insulin

== ENCOUNTER 2017-06-06 13:23 | Inpatient (IN) | payer MEDICARE ==
[2017-06-06 13:23] VITALS: BMI 27.3
[2017-06-06] MEDS ORDERED: Piperacill/Tazo 3.375gm in Dex 3.375 GM/50 ML BAG IV STA (14:03)
[2017-06-06] MEDS ORDERED: Vancomycin 1 gm/NS 200 ml 1 GM/200 ML BAG IVPB STA (14:03)
--- NOTE | 2017-06-06 14:14 | C.PDOC ---
History Of Present Illness 67 y/o male with history of COPD sent from his senior living for evaluation of cough with phlegm for several days, but today had a fever that spiked over 101. Patient notes this has happened before. Patient had a recent admission here for a diverting colostomy. Patient had a routine check with his PMD yesterday and who knew about the cough, but not the fever. Patient denies abdominal pain, nausea, or vomiting. He is short of breath and weak. Time Seen by Provider: 06/06/17 13:48 Chief Complaint (Nursing): Fever History Per: Patient History/Exam Limitations: no limitations Onset/Duration Of Symptoms: Hrs (fever), Days Current Symptoms Are (Timing): Still Present Ear Symptoms: Bilateral: None Severity: Mild Recent travel outside of the [place]: No Additional History Per: Patient Past Medical History Reviewed: Historical Data, Nursing Documentation, Vital Signs Vital Signs: Last Vital Signs Temp 98.3 F 06/06/17 13:30 Pulse 124 H 06/06/17 13:30 Resp 20 06/06/17 13:30 BP 116/77 06/06/17 13:30 Pulse Ox 98 06/06/17 14:17 - Medical History PMH: Anxiety, Arthritis, Asthma, Bronchitis, CHF, COPD, Diabetes, Emphysema, HTN , Hypercholesterolemia, Pneumonia, Chronic Kidney Disease, Sleep Apnea Denies: Gastritis - [facility] Procedures ASSISTANCE WITH RESPIRATORY VENTILATION, 24-96 HRS, CPAP (01/24/17) ASSISTANCE WITH RESPIRATORY VENTILATION, <24 HRS, CPAP (07/08/16) ASSISTANCE WITH RESPIRATORY VENTILATION, >96 HRS, CPAP (05/08/17) CONTINUOUS INVASIVE MECHANICAL VENTILATION <96 CONSEC HRS (11/29/14) DILATION OF RIGHT URETER WITH INTRALUMINAL DEVICE, ENDO (03/20/17) EXCISION OF SIGMOID COLON, ENDO, DIAGN (03/20/17) EXCISION OF STOMACH, ENDO, DIAGN (03/20/17) EXCISION OF TRANSVERSE COLON, ENDO, DIAGN (03/20/17) INFLUENZA VACCINATION (06/02/14) INSERT ENDOTRACHEAL TUBE (11/29/14) LARYGNOSCOPY AND OTH TRACHEOSCOPY (04/18/15) MEASURE OF CARDIAC SAMPL & PRESSURE, L HEART, PERC APPROACH (12/01/15) NON-INVASIVE MECHANICAL VENTILATION (04/18/15) RESECTION OF SIGMOID COLON, OPEN APPROACH (03/20/17) RESPIRATORY VENTILATION, GREATER THAN 96 CONSECUTIVE HOURS (03/20/17) Family History: States: Unknown Family Hx - Social History Hx Tobacco Use: Yes (8 years ppd smoker. quit 1.5 years ago) Hx Alcohol Use: No Hx Substance Use: No - Immunization History Hx Tetanus Toxoid Vaccination: Yes Hx Influenza Vaccination: No Hx Pneumococcal Vaccination: Yes (12/01/2014) Review Of Systems Except As Marked, All Systems Reviewed And Found Negative. Constitutional: Positive for: Fever (101) Respiratory: Positive for: Cough (with phlegm) Gastrointestinal: Negative for: Nausea, Vomiting, Abdominal Pain Physical Exam - Physical Exam Appears: Non-toxic, No Acute Distress Skin: Warm, Dry Head: Atraumatic, Normacephalic Eye(s): bilateral: Normal Inspection Ear(s): Bilateral: Normal Oral Mucosa: Moist Cardiovascular: Rhythm Regular (tachycardic), No Murmur Respiratory: Rales (Bibasilar rales), Rhonchi (Course rhonchi at the left base) , No Wheezing Gastrointestinal/Abdominal: Soft, No Tenderness, Other (Colostomy at the RLQ, functioning normally) Neurological/Psych: Oriented x3 (Awake and alert) ED Course And Treatment - Laboratory Results Result Diagrams: 06/06/17 14:10 06/06/17 14:10 Lab Interpretation: Abnormal (WBC 15.1 with left shift, Lactate 3.4, Na 131, HCO3 21, mild anemia.) O2 Sat by Pulse Oximetry: 98 (RA/nasal cannula) Pulse Ox Interpretation: Normal - Radiology CXR: Interpreted by Mi CXR Interpretation: Yes: Infiltrates (LLL) Progress Note: Patient treated with IV fluids and Zosyn and Vancomycin in ED Reevaluation Time: 14:42 Reassessment Condition: Improved - Physician Consult Information Time Consulting Physician Contacted: 14:42 Physician Contacted: Hal Garcia Outcome Of Conversation: Patient to be admitted to [facility] for sepsis. Medical Decision Making Medical Decision Making: Plans: * Blood labs * CXR * Zofran * Vancomycin * IV fluids * UA * O2 nasal cannula Disposition - Disposition Disposition: HOSPITALIZED Disposition Time: 14:43 Condition: FAIR - POA Present On Arrival: None - Clinical Impression Clinical Impression: Pneumonia, Sepsis - Scribe Statement The provider has reviewed the documentation as recorded by the Scribe Aurelio khan All medical record entries made by the Scribe were at my direction and personally dictated by me. I have reviewed the chart and agree that the record accurately reflects my personal performance of the history, physical exam, medical decision making, and the department course for this patient. I have also personally directed, reviewed, and agree with the discharge instructions and disposition.
[2017-06-06 14:15] LABS: BASO # 0.2 K/uL (0.0-0.2); BASO % 1.3 % (0.0-2.0); EOS # 0.1 K/uL (0.0-0.7); EOS % 0.8 % (0.0-4.0); HEMATOCRIT 32.4 % (35.0-51.0); LYMPH # 0.9 K/uL (1.0-4.3); LYMPH % 5.9 % (20.0-40.0); MEAN CELL VOLUME 74.2 fL (80.0-94.0); MEAN CORPUSCULAR HGB CONC 32.3 g/dL (33.0-37.0); MEAN PLATELET VOLUME 8.7 fL (7.2-11.7); MONO # 0.6 K/uL (0.0-0.8); MONO % 3.6 % (0.0-10.0); RED CELL DISTRIBUTION WIDTH 19.9 % (11.5-14.5); WHITE BLOOD COUNT 15.3 K/uL (4.8-10.8)
[2017-06-06 14:16] LABS: PLATELET COUNT 268 K/uL (130-400)
--- NOTE | 2017-06-06 14:23 | RAD ---
PROCEDURE: CHEST RADIOGRAPH, 1 VIEW HISTORY: Pneumonia COMPARISON: Portable chest 05/18/2017. FINDINGS: LUNGS: Clear. PLEURA: No pneumothorax or pleural fluid seen. CARDIOVASCULAR: Normal. OSSEOUS STRUCTURES: No significant abnormalities. VISUALIZED UPPER ABDOMEN: Normal. OTHER FINDINGS: None. IMPRESSION: No interval acute cardiopulmonary disease appreciated.
[2017-06-06 14:24] LABS: VENOUS BLOOD GAS BASE EXCESS 1.9 mmol/L (0.0-2.0); VENOUS BLOOD GAS PCO2 41 mmHg (40-60); VENOUS BLOOD PH 7.42 (7.32-7.43)
[2017-06-06 14:26] LABS: CHLORIDE 97 mmol/L (98-107); SODIUM 131 mmol/L (132-148)
[2017-06-06 14:27] LABS: POTASSIUM 3.9 mmol/L (3.6-5.2)
[2017-06-06 14:29] LABS: ALB/GLOB RATIO 1.1 (1.0-2.1); ALKALINE PHOSPHATASE 144 U/L (38-126); ALT/SGPT 81 U/L (21-72); AST/SGOT 48 U/L (17-59); BILIRUBIN,TOTAL 0.4 mg/dL (0.2-1.3); BLOOD UREA NITROGEN 5 mg/dL (9-20); CARBON DIOXIDE 21 mmol/L (22-30); GFR AFRICAN-AMERICAN > 60; GLUCOSE,RANDOM 231 mg/dL (75-110); TOTAL PROTEIN 7.2 g/dL (6.3-8.3)
[2017-06-06 14:30] LABS: CALCIUM 9.4 mg/dl (8.6-10.4)
[2017-06-06] MEDS ORDERED: Sodium Chloride 0.9% 1,000 ML IV ONE (14:44)
[2017-06-06 14:58] LABS: BASOPHIL 1 % (0-2); EOSINOPHIL 1 % (0-4); NEUTROPHIL 91 % (50-75); TOTAL CELLS COUNTED 100
[2017-06-06 17:35] LABS: VENOUS BLOOD GAS BASE EXCESS 2.2 mmol/L (0.0-2.0); VENOUS BLOOD GAS PCO2 43 mmHg (40-60); VENOUS BLOOD PH 7.41 (7.32-7.43)
[2017-06-06] MEDS ORDERED: Aluminum Hydroxide/Magnesium Hydroxide Susp (30 mL) PO PRN (19:57)
[2017-06-06] MEDS ORDERED: Magnesium Hydroxide Susp 30 ml UD PO PRN (19:57)
[2017-06-06] MEDS: Albuterol-Ipratrop 3 mg / 0.5 (3 ml) UD INH SCH (20:51)
[2017-06-06] MEDS: Fluticasone-Salmeterol 250-50mcg Diskus INH SCH ×2 (20:51→20:59)
[2017-06-06] MEDS: Budesonide 0.5 mg/2 ml Inhal Susp UD IH SCH ×2 (20:52→20:56)
[2017-06-06] MEDS: Sodium Chloride 0.9% 1,000 ML IV SCH (20:54)
[2017-06-06] MEDS: Piperacill/Tazo 3.375gm in Dex 3.375 GM/50 ML BAG IVPB SCH (21:59)
[2017-06-06] MEDS ORDERED: Home Med 1 UNIT (Arformoterol [Brovana] 15 MCG) IH SCH (22:00)
[2017-06-06] MEDS: MethylPREDNISolone 40 mg Vial IV SCH (22:01)
[2017-06-06] MEDS: (Novolog) Insulin Aspart, Recombinant 100 u/ml 10 ml vial SC SCH (22:02)
[2017-06-06] MEDS: metroNIDAZOLE IV 500 mg/100 ml 500 MG/100 ML BAG IVPB SCH (22:35)
--- NOTE | 2017-06-06 23:34 | CP.PCM.HP ---
History of Present Illness - History of Present Illness History of Present Illness: CC: Weakness, FEVER 67 y/o male with history of advanced COPD , multiple hospital , recent colon resection sent from his [facility] for evaluation of cough with phlegm for several days, but today had a fever that spiked over 101. Patient notes this has happened before. Patient had a recent admission here for a diverting colostomy. Patient had a routine check with his PMD yesterday and who knew about the cough, but not the fever. Patient denies abdominal pain, nausea, or vomiting. He is short of breath and weak.He has loose wattery stool in colostomy bag, chronic leg and back oaun Present on Admission - Present on Admission Any Indicators Present on Admission: Yes Urinary Catheter: Yes Review of Systems - Review of Systems Systems not reviewed;Unavailable: Respiratory Distress - Constitutional Constitutional: Fatigue, Lethargy, Malaise, Weakness - EENT Nose/Mouth/Throat: Nasal Congestion Past Patient History - Infectious Disease Hx of Infectious Diseases: None - Past Medical History & Family History Past Medical History?: Yes - Past Social History Smoking Status: Former Smoker - CARDIAC Hx Congestive Heart Failure: Yes Hx Hypercholesterolemia: Yes Hx Hypertension: Yes - PULMONARY Hx Asthma: Yes Hx Bronchitis: Yes Hx Chronic Obstructive Pulmonary Disease (COPD): Yes Hx Emphysema: Yes Hx Pneumonia: Yes Hx Sleep Apnea: Yes - NEUROLOGICAL Hx Neurological Disorder: No - HEENT Hx HEENT Problems: Yes Hx Cataracts: Yes (left cataract removed, r cataract) Other/Comment: wears eyeglasses for distance - RENAL Hx Chronic Kidney Disease: Yes Hx Kidney Stones: Yes - ENDOCRINE/METABOLIC Hx Endocrine Disorders: Yes Hx Diabetes Mellitus Type 2: Yes - HEMATOLOGICAL/ONCOLOGICAL Hx Blood Disorders: Yes Other/Comment: intestinal ademona - INTEGUMENTARY Hx Dermatological Problems: No - MUSCULOSKELETAL/RHEUMATOLOGICAL Hx Arthritis: Yes Hx Falls: No - GASTROINTESTINAL Hx Bowel Surgery: Yes ([id number]) Hx Colostomy: Yes ([id number]) Hx Gastritis: No - GENITOURINARY/GYNECOLOGICAL Hx Genitourinary Disorders: No - PSYCHIATRIC Hx Anxiety: Yes Hx Substance Use: No - SURGICAL HISTORY Hx Surgeries: Yes Hx Cardiac Catheterization: Yes (11/2015) Other/Comment: colon resection with right ileostomy - ANESTHESIA Hx Anesthesia: Yes Hx Anesthesia Reactions: No Hx Malignant Hyperthermia: No Meds Allergies/Adverse Reactions: Allergies Allergy/AdvReac Type Severity Reaction Status Date / Time acetaminophen [From Tylenol] Allergy RASH Verified 05/18/17 21:40 FISH Allergy SWELLING Verified 05/18/17 21:40 shrimp Allergy SHORTNESS Verified 05/18/17 21:40 OF BREATH IV dye Allergy ANAPHYLAXIS Uncoded 05/18/17 21:40 Physical Exam - Constitutional Appears: No Acute Distress Additional comments: elderly male sitting in bed looks pale and weak - Eye Exam Eye Exam: EOMI, Normal appearance, PERRL Pupil Exam: NORMAL ACCOMODATION, PERRL - Respiratory Exam Respiratory Exam: Decreased Breath Sounds, Rhonchi - Cardiovascular Exam Cardiovascular Exam: REGULAR RHYTHM - GI/Abdominal Exam GI & Abdominal Exam: Normal Bowel Sounds, Soft. absent: Tenderness Additional comments: colostomy bag full of yellow stool - Extremities Exam Additional comments: clubbing positive decreased peripheral pulses - Neurological Exam Neurological exam: Alert, CN II-XII Intact, Oriented x3 - Psychiatric Exam Psychiatric exam: Normal Affect, Normal Mood - Skin Skin Exam: Dry, Pallor Results - Vital Signs Recent Vital Signs: Last Vital Signs Temp 98.8 F 06/06/17 18:40 Pulse 96 H 06/06/17 20:52 Resp 20 06/06/17 19:56 BP 115/72 06/06/17 18:40 Pulse Ox 95 06/06/17 19:56 - Labs Result Diagrams: 06/06/17 14:10 06/06/17 14:10 Labs: Laboratory Results - last 24 hr 06/06/17 06/06/17 06/06/17 14:10 14:10 14:21 WBC 15.3 H RBC 4.37 L Hgb 10.5 L Hct 32.4 L MCV 74.2 L MCH 24.0 L MCHC 32.3 L RDW 19.9 H Plt Count 268 D MPV 8.7 Neut % (Auto) 88.4 H Lymph % (Auto) 5.9 L Alfalfa % (Auto) 3.6 Eos % (Auto) 0.8 Baso % (Auto) 1.3 Neut # 13.5 H Lymph # 0.9 L Alfalfa # 0.6 Eos # 0.1 Baso # 0.2 Neutrophils % (Manual) 91 H Lymphocytes % (Manual) 4 L Monocytes % (Manual) 3 Eosinophils % (Manual) 1 Basophils % (Manual) 1 Platelet Estimate Normal Anisocytosis (manual) Moderate Ovalocytes Slight pO2 57 H VBG pH 7.42 VBG pCO2 41 VBG HCO3 26.2 VBG Total CO2 27.9 VBG O2 Sat (Calc) 93.8 H VBG Base Excess 1.9 VBG Potassium 3.8 Glucose 248 H Lactate 3.4 H FiO2 Sodium 131 L 136.0 Potassium 3.9 Chloride 97 L 106.0 Carbon Dioxide 21 L Anion Gap 17 BUN 5 L Creatinine 0.4 L Est GFR ( Amer) > 60 Est GFR (Non-Af Amer) > 60 POC Glucose (mg/dL) Random Glucose 231 H Calcium 9.4 Total Bilirubin 0.4 AST 48 ALT 81 H D Alkaline Phosphatase 144 H D Total Protein 7.2 Albumin 3.7 Globulin 3.5 Albumin/Globulin Ratio 1.1 Venous Blood Potassium 3.8 06/06/17 06/06/17 17:30 21:25 WBC RBC Hgb Hct MCV MCH MCHC RDW Plt Count MPV Neut % (Auto) Lymph % (Auto) Alfalfa % (Auto) Eos % (Auto) Baso % (Auto) Neut # Lymph # Alfalfa # Eos # Baso # Neutrophils % (Manual) Lymphocytes % (Manual) Monocytes % (Manual) Eosinophils % (Manual) Basophils % (Manual) Platelet Estimate Anisocytosis (manual) Ovalocytes pO2 56 H VBG pH 7.41 VBG pCO2 43 VBG HCO3 26.4 VBG Total CO2 28.6 H VBG O2 Sat (Calc) 93.5 H VBG Base Excess 2.2 H VBG Potassium 3.7 Glucose 77 Lactate 0.9 FiO2 21.0 Sodium 138.0 Potassium Chloride 111.0 H Carbon Dioxide Anion Gap BUN Creatinine Est GFR ( Amer) Est GFR (Non-Af Amer) POC Glucose (mg/dL) 213 H Random Glucose Calcium Total Bilirubin AST ALT Alkaline Phosphatase Total Protein Albumin Globulin Albumin/Globulin Ratio Venous Blood Potassium 3.7 Assessment & Plan (1) Fever Status: Acute (2) Asthma Status: Acute (3) COPD exacerbation Status: Acute Priority: Medium (4) Allergic rhinitis Status: Chronic Priority: Medium (5) Sepsis Assessment and Plan: rule out sepsis could be C.Diff collitis or resp source Status: Acute
[2017-06-07] MEDS: Promethazine/Cod 6.25mg-10mg/5ml Syr UD PO PRN ×2 (00:08→17:40)
[2017-06-07] MEDS: Albuterol-Ipratrop 3 mg / 0.5 (3 ml) UD INH SCH ×4 (01:20→19:48)
[2017-06-07 03:32] LABS: URINE BILIRUBIN NEGATIVE (NEGATIVE); URINE BLOOD NEGATIVE (NEGATIVE); URINE COLOR YELLOW (YELLOW); URINE GLUCOSE (UA) 2+ mg/dL (Normal); URINE KETONE NEGATIVE (NEGATIVE); URINE LEUKOCYTE ESTERASE NEGATIVE Leu/uL (Negative); URINE PROTEIN NEGATIVE (NEGATIVE); URINE UROBILINOGEN Normal mg/dL (0.2-1.0)
[2017-06-07 03:40] LABS: WBC URINE 1 /hpf (0-5)
[2017-06-07] MEDS: Piperacill/Tazo 3.375gm in Dex 3.375 GM/50 ML BAG IVPB SCH ×2 (04:09→09:32)
[2017-06-07] MEDS: metroNIDAZOLE IV 500 mg/100 ml 500 MG/100 ML BAG IVPB SCH (05:18)
[2017-06-07] MEDS: Budesonide 0.5 mg/2 ml Inhal Susp UD IH SCH ×2 (07:26→19:47)
[2017-06-07] MEDS: (Novolog) Insulin Aspart, Recombinant 100 u/ml 10 ml vial SC SCH ×4 (08:40→22:06)
--- NOTE | 2017-06-07 09:40 | CP.PCM.CON ---
<Darshana Ramsey - Last Filed: 06/07/17 13:41> History of Present Illness - History of Present Illness History of Present Illness: Pulmonology Consult Note for Dr. Nuno's Service Reason for Consult: " pneumonia, COPD exacerbation " HPI: 67M with significant PMHx of COPD and others listed below, [facility] for evaluation of productive cough for several days and fever. Patient had a recent admission here for a diverting colostomy. He has monthly admissions for COPD exacerbations. Patient reports he has been having a productive cough with yellow/green sputum for the past 3-4 days with a fever of 101 at his [facility]. Patient reports he feels weak and is experiencing SOB. Admitted to fever, chills, productive cough. Denied headache, chest pain, abdominal pain, n/v/d/c, or urinary symptoms. PMHx: Anxiety, arthritis, asthma, bronchitis, COPD, CHF, DM, Emphysema, HTN, hypercholesterolemia, pneumonia, CKD, REYNA PSHx: LAR w/ ileostomy 03/27/17, Cardiac cath w/o stents Meds: As per OCT, reviewed and confirmed All: Acetaminophen, fish, shrimp SHx: 8 year smoking history, 1 PPD; quit 2 years ago FHx: Unremarkable Past Patient History - Infectious Disease Hx of Infectious Diseases: None - Past Medical History & Family History Past Medical History?: Yes - Past Social History Smoking Status: Former Smoker - CARDIAC Hx Congestive Heart Failure: Yes Hx Hypercholesterolemia: Yes Hx Hypertension: Yes - PULMONARY Hx Asthma: Yes Hx Bronchitis: Yes Hx Chronic Obstructive Pulmonary Disease (COPD): Yes Hx Emphysema: Yes Hx Pneumonia: Yes Hx Sleep Apnea: Yes - NEUROLOGICAL Hx Neurological Disorder: No - HEENT Hx HEENT Problems: Yes Hx Cataracts: Yes (left cataract removed, r cataract) Other/Comment: wears eyeglasses for distance - RENAL Hx Chronic Kidney Disease: Yes Hx Kidney Stones: Yes - ENDOCRINE/METABOLIC Hx Endocrine Disorders: Yes Hx Diabetes Mellitus Type 2: Yes - HEMATOLOGICAL/ONCOLOGICAL Hx Blood Disorders: Yes Other/Comment: intestinal ademona - INTEGUMENTARY Hx Dermatological Problems: No - MUSCULOSKELETAL/RHEUMATOLOGICAL Hx Arthritis: Yes Hx Falls: No - GASTROINTESTINAL Hx Bowel Surgery: Yes ([id number]) Hx Colostomy: Yes ([id number]) Hx Gastritis: No - GENITOURINARY/GYNECOLOGICAL Hx Genitourinary Disorders: No - PSYCHIATRIC Hx Anxiety: Yes Hx Substance Use: No - SURGICAL HISTORY Hx Surgeries: Yes Hx Cardiac Catheterization: Yes (11/2015) Other/Comment: colon resection with right ileostomy - ANESTHESIA Hx Anesthesia: Yes Hx Anesthesia Reactions: No Hx Malignant Hyperthermia: No Meds Allergies/Adverse Reactions: Allergies Allergy/AdvReac Type Severity Reaction Status Date / Time acetaminophen [From Tylenol] Allergy RASH Verified 05/18/17 21:40 FISH Allergy SWELLING Verified 05/18/17 21:40 shrimp Allergy SHORTNESS Verified 05/18/17 21:40 OF BREATH IV dye Allergy ANAPHYLAXIS Uncoded 05/18/17 21:40 - Medications Medications: Current Medications Al Hydrox/Mg Hydrox/Simethicone (Maalox 30 Ml) 30 ml PO Q6H PRN PRN Reason: Indigestion / Heartburn Albuterol/Ipratropium (Duoneb 3 Mg/0.5 Mg (3 Ml) Ud) 3 ml INH RQ6 [facility] Last Admin: 06/07/17 07:26 Dose: 3 ml Alprazolam (Xanax) 0.5 mg PO Q12 [facility] Stop: 06/13/17 22:01 Last Admin: 06/06/17 22:01 Dose: 0.5 mg Budesonide (Pulmicort Respules) 1 mg IH RQ12 [facility] Last Admin: 06/07/17 07:26 Dose: 0.5 mg Guaifenesin (Mucinex La) 600 mg PO BID [facility] Metronidazole (Flagyl) 500 mg in 100 mls @ 100 mls/hr IVPB Q8 [facility] Last Admin: 06/07/17 05:18 Dose: 100 mls/hr Piperacillin Sod/Tazobactam Sod (Zosyn 3.375 Gm Iv Premix) 3.375 gm in 50 mls @ 100 mls/hr IVPB Q6H [facility] Last Admin: 06/07/17 04:09 Dose: 100 mls/hr Sodium Chloride (Sodium Chloride 0.9%) 1,000 mls @ 100 mls/hr IV .Q10H [facility] Last Admin: 06/06/17 20:54 Dose: 100 mls/hr Insulin Aspart (Novolog) 0 unit SC ACHS [facility] PRN Reason: Protocol Last Admin: 06/07/17 08:40 Dose: 2 unit Magnesium Hydroxide (Milk Of Magnesia) 30 ml PO DAILY PRN PRN Reason: Constipation Metformin HCl (Glucophage) 1,000 mg PO BID [facility] Methylprednisolone (Solu-Medrol) 40 mg IV Q12 [facility] Last Admin: 06/06/17 22:01 Dose: 40 mg Montelukast Sodium (Singulair) 10 mg PO HS [facility] Last Admin: 06/06/17 22:01 Dose: 10 mg Promethazine HCl/Codeine (Phenergan/Codeine Oral Syrup) 5 ml PO Q8 PRN PRN Reason: Cough Last Admin: 06/07/17 00:08 Dose: 5 ml Roflumilast (Daliresp) 500 mcg PO DAILY [facility] Fluticasone/Salmeterol (Advair Diskus 250/50) 1 puff INH RBID [facility] Last Admin: 06/06/17 20:59 Dose: 1 puff Vitamin B Complex/Vitamin C (Berocca) 1 tab PO DAILY [facility] Warfarin Sodium (Coumadin) 5 mg PO 1800 [facility] Physical Exam - Constitutional Appears: No Acute Distress - Head Exam Head Exam: NORMAL INSPECTION, NORMOCEPHALIC - Eye Exam Eye Exam: EOMI, Normal appearance, PERRL Pupil Exam: NORMAL ACCOMODATION - ENT Exam ENT Exam: Mucous Membranes Dry - Respiratory Exam Respiratory Exam: Decreased Breath Sounds, Prolonged Expiratory Phase, Wheezes - Cardiovascular Exam Cardiovascular Exam: REGULAR RHYTHM, RRR, +S1, +S2 - GI/Abdominal Exam GI & Abdominal Exam: Normal Bowel Sounds, Soft. absent: Distended, Tenderness Additional comments: Colostomy at the RLQ, functioning normally - Extremities Exam Extremities exam: Positive for: normal inspection, pedal pulses present. Negative for: pedal edema, tenderness - Back Exam Back exam: NORMAL INSPECTION - Neurological Exam Neurological exam: Alert, CN II-XII Intact, Oriented x3 - Psychiatric Exam Psychiatric exam: Normal Affect, Normal Mood - Skin Skin Exam: Dry, Intact, Normal Color, Warm Results - Vital Signs Recent Vital Signs: Last Vital Signs Temp 97.5 F L 06/07/17 07:00 Pulse 87 06/07/17 07:00 Resp 18 06/07/17 07:00 BP 113/74 06/07/17 07:00 Pulse Ox 100 06/07/17 07:00 - Labs Result Diagrams: 06/06/17 14:10 06/06/17 14:10 Labs: Laboratory Results - last 24 hr 06/06/17 06/06/17 06/06/17 14:10 14:10 14:21 WBC 15.3 H RBC 4.37 L Hgb 10.5 L Hct 32.4 L MCV 74.2 L MCH 24.0 L MCHC 32.3 L RDW 19.9 H Plt Count 268 D MPV 8.7 Neut % (Auto) 88.4 H Lymph % (Auto) 5.9 L [place] % (Auto) 3.6 Eos % (Auto) 0.8 Baso % (Auto) 1.3 Neut # 13.5 H Lymph # 0.9 L [place] # 0.6 Eos # 0.1 Baso # 0.2 Neutrophils % (Manual) 91 H Lymphocytes % (Manual) 4 L Monocytes % (Manual) 3 Eosinophils % (Manual) 1 Basophils % (Manual) 1 Platelet Estimate Normal Anisocytosis (manual) Moderate Ovalocytes Slight pO2 57 H VBG pH 7.42 VBG pCO2 41 VBG HCO3 26.2 VBG Total CO2 27.9 VBG O2 Sat (Calc) 93.8 H VBG Base Excess 1.9 VBG Potassium 3.8 Glucose 248 H Lactate 3.4 H FiO2 Sodium 131 L 136.0 Potassium 3.9 Chloride 97 L 106.0 Carbon Dioxide 21 L Anion Gap 17 BUN 5 L Creatinine 0.4 L Est GFR ( Amer) > 60 Est GFR (Non-Af Amer) > 60 POC Glucose (mg/dL) Random Glucose 231 H Calcium 9.4 Total Bilirubin 0.4 AST 48 ALT 81 H D Alkaline Phosphatase 144 H D Total Protein 7.2 Albumin 3.7 Globulin 3.5 Albumin/Globulin Ratio 1.1 Venous Blood Potassium 3.8 Urine Color Urine Clarity Urine pH Ur Specific [place] Urine Protein Urine Glucose (UA) Urine Ketones Urine Blood Urine Nitrate Urine Bilirubin Urine Urobilinogen Ur Leukocyte Esterase Urine WBC (Auto) Ur Squamous Epith Cells 06/06/17 06/06/17 06/07/17 17:30 21:25 03:11 WBC RBC Hgb Hct MCV MCH MCHC RDW Plt Count MPV Neut % (Auto) Lymph % (Auto) [place] % (Auto) Eos % (Auto) Baso % (Auto) Neut # Lymph # [place] # Eos # Baso # Neutrophils % (Manual) Lymphocytes % (Manual) Monocytes % (Manual) Eosinophils % (Manual) Basophils % (Manual) Platelet Estimate Anisocytosis (manual) Ovalocytes pO2 56 H VBG pH 7.41 VBG pCO2 43 VBG HCO3 26.4 VBG Total CO2 28.6 H VBG O2 Sat (Calc) 93.5 H VBG Base Excess 2.2 H VBG Potassium 3.7 Glucose 77 Lactate 0.9 FiO2 21.0 Sodium 138.0 Potassium Chloride 111.0 H Carbon Dioxide Anion Gap BUN Creatinine Est GFR ( Amer) Est GFR (Non-Af Amer) POC Glucose (mg/dL) 213 H Random Glucose Calcium Total Bilirubin AST ALT Alkaline Phosphatase Total Protein Albumin Globulin Albumin/Globulin Ratio Venous Blood Potassium 3.7 Urine Color Yellow Urine Clarity Clear Urine pH 5.0 Ur Specific [place] 1.012 Urine Protein Negative Urine Glucose (UA) 2+ H Urine Ketones Negative Urine Blood Negative Urine Nitrate Negative Urine Bilirubin Negative Urine Urobilinogen Normal Ur Leukocyte Esterase Negative Urine WBC (Auto) 1 Ur Squamous Epith Cells 2 06/07/17 06:40 WBC RBC Hgb Hct MCV MCH MCHC RDW Plt Count MPV Neut % (Auto) Lymph % (Auto) [place] % (Auto) Eos % (Auto) Baso % (Auto) Neut # Lymph # [place] # Eos # Baso # Neutrophils % (Manual) Lymphocytes % (Manual) Monocytes % (Manual) Eosinophils % (Manual) Basophils % (Manual) Platelet Estimate Anisocytosis (manual) Ovalocytes pO2 VBG pH VBG pCO2 VBG HCO3 VBG Total CO2 VBG O2 Sat (Calc) VBG Base Excess VBG Potassium Glucose Lactate FiO2 Sodium Potassium Chloride Carbon Dioxide Anion Gap BUN Creatinine Est GFR ( Amer) Est GFR (Non-Af Amer) POC Glucose (mg/dL) 233 H Random Glucose Calcium Total Bilirubin AST ALT Alkaline Phosphatase Total Protein Albumin Globulin Albumin/Globulin Ratio Venous Blood Potassium Urine Color Urine Clarity Urine pH Ur Specific [place] Urine Protein Urine Glucose (UA) Urine Ketones Urine Blood Urine Nitrate Urine Bilirubin Urine Urobilinogen Ur Leukocyte Esterase Urine WBC (Auto) Ur Squamous Epith Cells Assessment & Plan - Assessment and Plan (Free Text) Plan: COPD (chronic obstructive pulmonary disease) with emphysema Pneumonia Febrile, leukocytosis with left shift CXR 06/06: No interval acute cardiopulmonary disease appreciated F/U mycoplasma, legionella, rapid flu, strep pneumonia, sputum culture Duonebs Q6H Pulmicort Q12 Singulair 10mg PO QHS Roflumilast 500mcg PO daily Advair 250/50 BID Mucinex BID, Phenergran with Codeine Q8 PRN Solumedrol 40mg IVP Q12H Cefepime 1gram IVP daily started 06/07 ( due to recent admission ) BiPAP PRN DW Roxy Jurado DO, PGY-1 <Ralf Nuno - Last Filed: 06/07/17 15:20> Meds - Medications Medications: Current Medications Al Hydrox/Mg Hydrox/Simethicone (Maalox 30 Ml) 30 ml PO Q6H PRN PRN Reason: Indigestion / Heartburn Albuterol/Ipratropium (Duoneb 3 Mg/0.5 Mg (3 Ml) Ud) 3 ml INH RQ6 [facility] Last Admin: 06/07/17 13:35 Dose: 3 ml Alprazolam (Xanax) 0.5 mg PO Q12 [facility] Stop: 06/13/17 22:01 Last Admin: 06/07/17 10:33 Dose: 0.5 mg Budesonide (Pulmicort Respules) 1 mg IH RQ12 [facility] Last Admin: 06/07/17 07:26 Dose: 0.5 mg Guaifenesin (Mucinex La) 600 mg PO BID [facility] Last Admin: 06/07/17 10:40 Dose: 600 mg Sodium Chloride (Sodium Chloride 0.9%) 1,000 mls @ 100 mls/hr IV .Q10H [facility] Last Admin: 06/07/17 10:20 Dose: 100 mls/hr Cefepime HCl (Maxipime Iv 1 Gm Premix) 1 gm in 50 mls @ 100 mls/hr IVPB Q24H [facility] Ibuprofen (Motrin Tab) 600 mg PO Q6H PRN PRN Reason: Fever >100.4 F Insulin Aspart (Novolog) 0 unit SC ACHS [facility] PRN Reason: Protocol Last Admin: 06/07/17 12:30 Dose: Not Given Magnesium Hydroxide (Milk Of Magnesia) 30 ml PO DAILY PRN PRN Reason: Constipation Metformin HCl (Glucophage) 1,000 mg PO BID [facility] Last Admin: 06/07/17 10:33 Dose: 1,000 mg Methylprednisolone (Solu-Medrol) 40 mg IV Q12 [facility] Last Admin: 06/07/17 10:35 Dose: 40 mg Montelukast Sodium (Singulair) 10 mg PO HS [facility] Last Admin: 06/06/17 22:01 Dose: 10 mg Promethazine HCl/Codeine (Phenergan/Codeine Oral Syrup) 5 ml PO Q8 PRN PRN Reason: Cough Last Admin: 06/07/17 00:08 Dose: 5 ml Roflumilast (Daliresp) 500 mcg PO DAILY [facility] Last Admin: 06/07/17 10:34 Dose: 500 mcg Fluticasone/Salmeterol (Advair Diskus 250/50) 1 puff INH RBID [facility] Last Admin: 06/07/17 10:02 Dose: 1 puff Vitamin B Complex/Vitamin C (Berocca) 1 tab PO DAILY [facility] Last Admin: 06/07/17 10:33 Dose: 1 tab Warfarin Sodium (Coumadin) 5 mg PO 1800 [facility] Results - Vital Signs Recent Vital Signs: Last Vital Signs Temp 97.5 F L 06/07/17 07:00 Pulse 87 06/07/17 07:00 Resp 18 06/07/17 07:00 BP 113/74 06/07/17 07:00 Pulse Ox 100 06/07/17 07:00 - Labs Result Diagrams: 06/06/17 14:10 06/06/17 14:10 Labs: Laboratory Results - last 24 hr 06/06/17 06/06/17 06/07/17 17:30 21:25 03:11 pO2 56 H VBG pH 7.41 VBG pCO2 43 VBG HCO3 26.4 VBG Total CO2 28.6 H VBG O2 Sat (Calc) 93.5 H VBG Base Excess 2.2 H VBG Potassium 3.7 Sodium 138.0 Chloride 111.0 H Glucose 77 Lactate 0.9 FiO2 21.0 POC Glucose (mg/dL) 213 H Venous Blood Potassium 3.7 Urine Color Yellow Urine Clarity Clear Urine pH 5.0 Ur Specific [place] 1.012 Urine Protein Negative Urine Glucose (UA) 2+ H Urine Ketones Negative Urine Blood Negative Urine Nitrate Negative Urine Bilirubin Negative Urine Urobilinogen Normal Ur Leukocyte Esterase Negative Urine WBC (Auto) 1 Ur Squamous Epith Cells 2 06/07/17 06/07/17 06:40 11:30 pO2 VBG pH VBG pCO2 VBG HCO3 VBG Total CO2 VBG O2 Sat (Calc) VBG Base Excess VBG Potassium Sodium Chloride Glucose Lactate FiO2 POC Glucose (mg/dL) 233 H 94 Venous Blood Potassium Urine Color Urine Clarity Urine pH Ur Specific [place] Urine Protein Urine Glucose (UA) Urine Ketones Urine Blood Urine Nitrate Urine Bilirubin Urine Urobilinogen Ur Leukocyte Esterase Urine WBC (Auto) Ur Squamous Epith Cells Attending/Attestation - Attestation I have personally seen and examined this patient.: Yes I have fully participated in the care of the patient.: Yes I have reviewed all pertinent clinical information: Yes Notes (Text): 06/07/17 15:19 the patient seen and examined. Admitted with shortness of breath and fever Chest x-ray showed no infiltrate Continue nebulizertment, antibiotics Followup culture and sensitivity
[2017-06-07] MEDS: Fluticasone-Salmeterol 250-50mcg Diskus INH SCH ×2 (10:02→19:47)
[2017-06-07] MEDS: Sodium Chloride 0.9% 1,000 ML IV SCH (10:20)
[2017-06-07] MEDS: Vitamin B Complex/Vitamin C Tab PO SCH (10:33)
[2017-06-07] MEDS: MethylPREDNISolone 40 mg Vial IV SCH ×2 (10:35→22:05)
[2017-06-07] MEDS: guaiFENesin 600 mg ER Tab PO SCH ×2 (10:40→18:12)
[2017-06-07] MEDS ORDERED: Cefepime IV 1 gm in Dextrose 1 GM/50 ML BAG IVPB STA (11:29)
[2017-06-07 16:50] VITALS: RESP 20
[2017-06-07 17:34] LABS: INR 2.2
--- NOTE | 2017-06-07 20:11 | CP.PCM.PN ---
Subjective - Date & Time of Evaluation Date of Evaluation: 06/07/17 Time of Evaluation: 20:00 - Subjective Subjective: patient seen and examined. Admitted with shortness of breath and fever Chest x-ray showed no infiltrate Continue nebulizertment, antibiotics Followup culture and sensitivity Objective - Vital Signs/Intake and Output Vital Signs (last 24 hours): Temp Pulse Resp BP Pulse Ox 97.6 F 99 H 20 124/76 99 06/07/17 15:05 06/07/17 19:52 06/07/17 15:05 06/07/17 15:05 06/07/17 15:05 - Medications Medications: Current Medications Al Hydrox/Mg Hydrox/Simethicone (Maalox 30 Ml) 30 ml PO Q6H PRN PRN Reason: Indigestion / Heartburn Albuterol/Ipratropium (Duoneb 3 Mg/0.5 Mg (3 Ml) Ud) 3 ml INH RQ6 [facility] Last Admin: 06/07/17 19:48 Dose: 3 ml Alprazolam (Xanax) 0.5 mg PO Q12 [facility] Stop: 06/13/17 22:01 Last Admin: 06/07/17 10:33 Dose: 0.5 mg Budesonide (Pulmicort Respules) 1 mg IH RQ12 [facility] Last Admin: 06/07/17 19:47 Dose: 1 mg Guaifenesin (Mucinex La) 600 mg PO BID [facility] Last Admin: 06/07/17 18:12 Dose: 600 mg Sodium Chloride (Sodium Chloride 0.9%) 1,000 mls @ 100 mls/hr IV .Q10H [facility] Last Admin: 06/07/17 10:20 Dose: 100 mls/hr Cefepime HCl (Maxipime Iv 1 Gm Premix) 1 gm in 50 mls @ 100 mls/hr IVPB Q24H [facility] Ibuprofen (Motrin Tab) 600 mg PO Q6H PRN PRN Reason: Fever >100.4 F Last Admin: 06/07/17 18:12 Dose: 600 mg Insulin Aspart (Novolog) 0 unit SC ACHS [facility] PRN Reason: Protocol Last Admin: 06/07/17 17:35 Dose: 1 unit Magnesium Hydroxide (Milk Of Magnesia) 30 ml PO DAILY PRN PRN Reason: Constipation Metformin HCl (Glucophage) 1,000 mg PO BID [facility] Last Admin: 06/07/17 17:40 Dose: 1,000 mg Methylprednisolone (Solu-Medrol) 40 mg IV Q12 [facility] Last Admin: 06/07/17 10:35 Dose: 40 mg Montelukast Sodium (Singulair) 10 mg PO HS [facility] Last Admin: 06/06/17 22:01 Dose: 10 mg Promethazine HCl/Codeine (Phenergan/Codeine Oral Syrup) 5 ml PO Q8 PRN PRN Reason: Cough Last Admin: 06/07/17 17:40 Dose: 5 ml Roflumilast (Daliresp) 500 mcg PO DAILY [facility] Last Admin: 06/07/17 10:34 Dose: 500 mcg Fluticasone/Salmeterol (Advair Diskus 250/50) 1 puff INH RBID [facility] Last Admin: 06/07/17 19:47 Dose: 1 puff Vitamin B Complex/Vitamin C (Berocca) 1 tab PO DAILY [facility] Last Admin: 06/07/17 10:33 Dose: 1 tab Warfarin Sodium (Coumadin) 5 mg PO 1800 [facility] - Labs Labs: 06/06/17 14:10 06/06/17 14:10 PT 25.2 SECONDS (9.7-12.2) H 06/07/17 17:19 INR 2.2 06/07/17 17:19 Assessment and Plan (1) Fever Status: Acute (2) Asthma Status: Acute (3) COPD exacerbation Assessment & Plan: COPD (chronic obstructive pulmonary disease) with emphysema Pneumonia Febrile, leukocytosis with left shift CXR 06/06: No interval acute cardiopulmonary disease appreciated F/U mycoplasma, legionella, rapid flu, strep pneumonia, sputum culture Duonebs Q6H Pulmicort Q12 Singulair 10mg PO QHS Roflumilast 500mcg PO daily Advair 250/50 BID Mucinex BID, Phenergran with Codeine Q8 PRN Solumedrol 40mg IVP Q12H Cefepime 1gram IVP daily started 06/07 ( due to recent admission ) BiPAP PRN Status: Acute (4) Allergic rhinitis Status: Chronic
[2017-06-08] MEDS: Albuterol-Ipratrop 3 mg / 0.5 (3 ml) UD INH SCH ×3 (01:12→14:07)
[2017-06-08] MEDS: Promethazine/Cod 6.25mg-10mg/5ml Syr UD PO PRN ×2 (04:15→16:38)
[2017-06-08] MEDS: Budesonide 0.5 mg/2 ml Inhal Susp UD IH SCH (07:32)
[2017-06-08 07:35] LABS: INR 1.9
[2017-06-08 07:53] LABS: BASO % 0.5 % (0.0-2.0); EOS % 0.4 % (0.0-4.0); HEMATOCRIT 30.2 % (35.0-51.0); LYMPH # 1.3 K/uL (1.0-4.3); LYMPH % 14.9 % (20.0-40.0); MEAN CELL VOLUME 74.1 fL (80.0-94.0); MEAN CORPUSCULAR HEMOGLOBIN 24.3 pg (27.0-31.0); MEAN CORPUSCULAR HGB CONC 32.8 g/dL (33.0-37.0); MEAN PLATELET VOLUME 8.2 fL (7.2-11.7); MONO # 0.5 K/uL (0.0-0.8); MONO % 5.2 % (0.0-10.0); RED CELL DISTRIBUTION WIDTH 18.8 % (11.5-14.5); WHITE BLOOD COUNT 8.7 K/uL (4.8-10.8)
[2017-06-08] MEDS: (Novolog) Insulin Aspart, Recombinant 100 u/ml 10 ml vial SC SCH ×2 (08:29→11:27)
[2017-06-08] MEDS: Fluticasone-Salmeterol 250-50mcg Diskus INH SCH (09:42)
[2017-06-08] MEDS ORDERED: Cefepime IV 1 gm in Dextrose 1 GM/50 ML BAG IVPB SCH (10:00)
[2017-06-08] MEDS: guaiFENesin 600 mg ER Tab PO SCH ×2 (10:01→17:05)
[2017-06-08] MEDS: MethylPREDNISolone 40 mg Vial IV SCH (10:01)
[2017-06-08] MEDS: Vitamin B Complex/Vitamin C Tab PO SCH (10:01)
[2017-06-08] MEDS: Sodium Chloride 0.9% 1,000 ML IV SCH (12:46)
--- NOTE | 2017-06-08 14:05 | CP.PCM.PN ---
Subjective - Date & Time of Evaluation Date of Evaluation: 06/08/17 Time of Evaluation: 09:00 - Subjective Subjective: Pulmonology Note for Dr. Nuno's Service Patient was seen and examined at bedside. He reports his breathing has improved. He is very concerned, he does not want to be discharged back to [facility] until he feels 100% better. He wants the wound care nurse Rajinder to continue cleaning his colostomy site - he believes he is not getting proper management at his current [facility] since the site is very excoriated and he sustained a recent infection at the site. Denied fever, chills, headache, chest pain, SOB, cough abdominal pain, n/v/d/c, or urinary symptoms. Objective - Vital Signs/Intake and Output Vital Signs (last 24 hours): Temp Pulse Resp BP Pulse Ox 97.6 F 98 H 20 112/70 100 06/08/17 07:00 06/08/17 07:00 06/08/17 07:00 06/08/17 07:00 06/08/17 07:00 Intake and Output: 06/08/17 06/08/17 06:59 18:59 Intake Total 1200 Balance 1200 - Medications Medications: Current Medications Al Hydrox/Mg Hydrox/Simethicone (Maalox 30 Ml) 30 ml PO Q6H PRN PRN Reason: Indigestion / Heartburn Albuterol/Ipratropium (Duoneb 3 Mg/0.5 Mg (3 Ml) Ud) 3 ml INH RQ6 [facility] Last Admin: 06/08/17 07:31 Dose: 3 ml Alprazolam (Xanax) 0.5 mg PO Q12 [facility] Stop: 06/13/17 22:01 Last Admin: 06/08/17 10:01 Dose: 0.5 mg Budesonide (Pulmicort Respules) 1 mg IH RQ12 [facility] Last Admin: 06/08/17 07:32 Dose: 0.5 mg Guaifenesin (Mucinex La) 600 mg PO BID [facility] Last Admin: 06/08/17 10:01 Dose: 600 mg Sodium Chloride (Sodium Chloride 0.9%) 1,000 mls @ 100 mls/hr IV .Q10H [facility] Last Admin: 06/08/17 12:46 Dose: Not Given Cefepime HCl (Maxipime Iv 1 Gm Premix) 1 gm in 50 mls @ 100 mls/hr IVPB Q24H [facility] Last Admin: 06/08/17 10:02 Dose: 100 mls/hr Ibuprofen (Motrin Tab) 600 mg PO Q6H PRN PRN Reason: Fever >100.4 F Last Admin: 06/07/17 18:12 Dose: 600 mg Insulin Aspart (Novolog) 0 unit SC ACHS [facility] PRN Reason: Protocol Last Admin: 06/08/17 11:27 Dose: Not Given Magnesium Hydroxide (Milk Of Magnesia) 30 ml PO DAILY PRN PRN Reason: Constipation Metformin HCl (Glucophage) 1,000 mg PO BID [facility] Last Admin: 06/08/17 10:01 Dose: 1,000 mg Methylprednisolone (Solu-Medrol) 40 mg IV Q12 [facility] Last Admin: 06/08/17 10:01 Dose: 40 mg Montelukast Sodium (Singulair) 10 mg PO HS [facility] Last Admin: 06/07/17 22:05 Dose: 10 mg Promethazine HCl/Codeine (Phenergan/Codeine Oral Syrup) 5 ml PO Q8 PRN PRN Reason: Cough Last Admin: 06/08/17 04:15 Dose: 5 ml Roflumilast (Daliresp) 500 mcg PO DAILY [facility] Last Admin: 06/08/17 10:01 Dose: 500 mcg Fluticasone/Salmeterol (Advair Diskus 250/50) 1 puff INH RBID [facility] Last Admin: 06/08/17 09:42 Dose: 1 puff Vitamin B Complex/Vitamin C (Berocca) 1 tab PO DAILY [facility] Last Admin: 06/08/17 10:01 Dose: 1 tab Warfarin Sodium (Coumadin) 5 mg PO 1800 [facility] Stop: 06/08/17 18:01 - Labs Labs: 06/08/17 07:15 06/06/17 14:10 PT 21.2 SECONDS (9.7-12.2) H 06/08/17 07:15 INR 1.9 06/08/17 07:15 - Additional Findings Additional findings: - Constitutional Appears: No Acute Distress - Head Exam Head Exam: NORMAL INSPECTION, NORMOCEPHALIC - Eye Exam Eye Exam: EOMI, Normal appearance, PERRL Pupil Exam: NORMAL ACCOMODATION - ENT Exam ENT Exam: Mucous Membranes Dry - Respiratory Exam Respiratory Exam: Decreased Breath Sounds, Prolonged Expiratory Phase, Wheezes - Cardiovascular Exam Cardiovascular Exam: REGULAR RHYTHM, RRR, +S1, +S2 - GI/Abdominal Exam GI & Abdominal Exam: Normal Bowel Sounds, Soft. absent: Distended, Tenderness Additional comments: Colostomy at the RLQ, functioning normally - Extremities Exam Extremities exam: Positive for: normal inspection, pedal pulses present. Negative for: pedal edema, tenderness - Back Exam Back exam: NORMAL INSPECTION - Neurological Exam Neurological exam: Alert, CN II-XII Intact, Oriented x3 - Psychiatric Exam Psychiatric exam: Normal Affect, Normal Mood - Skin Skin Exam: Dry, Intact, Normal Color, Warm Assessment and Plan - Assessment and Plan (Free Text) Plan: COPD (chronic obstructive pulmonary disease) with emphysema Febrile, leukocytosis with left shift CXR 06/06: No interval acute cardiopulmonary disease appreciated F/U mycoplasma, strep pneumonia, sputum culture, legionella- negative, rapid flu - negative Duonebs Q6H Pulmicort Q12 Singulair 10mg PO QHS Roflumilast 500mcg PO daily Advair 250/50 BID Mucinex BID, Phenergran with Codeine Q8 PRN Solumedrol 40mg IVP Q12H Cefepime 1gram IVP daily started 06/07 ( due to recent admission ) BiPAP PRN DW Roxy Jurado DO, PGY-1
--- NOTE | 2017-06-08 15:08 | CP.PCM.PN ---
Subjective - Date & Time of Evaluation Date of Evaluation: 06/08/17 Time of Evaluation: 11:20 - Subjective Subjective: Patient seen and examined today , denies any chest pain, sob, cough, fever, chills, abdominal pain, N/V/D a febrile since admission No overnight events reported by RN Objective - Vital Signs/Intake and Output Vital Signs (last 24 hours): Temp Pulse Resp BP Pulse Ox 97.6 F 98 H 20 112/70 100 06/08/17 07:00 06/08/17 07:00 06/08/17 07:00 06/08/17 07:00 06/08/17 07:00 Intake and Output: 06/08/17 06/08/17 06:59 18:59 Intake Total 1200 400 Balance 1200 400 - Medications Medications: Current Medications Al Hydrox/Mg Hydrox/Simethicone (Maalox 30 Ml) 30 ml PO Q6H PRN PRN Reason: Indigestion / Heartburn Albuterol/Ipratropium (Duoneb 3 Mg/0.5 Mg (3 Ml) Ud) 3 ml INH RQ6 [facility] Last Admin: 06/08/17 14:07 Dose: 3 ml Alprazolam (Xanax) 0.5 mg PO Q12 [facility] Stop: 06/13/17 22:01 Last Admin: 06/08/17 10:01 Dose: 0.5 mg Budesonide (Pulmicort Respules) 1 mg IH RQ12 [facility] Last Admin: 06/08/17 07:32 Dose: 0.5 mg Guaifenesin (Mucinex La) 600 mg PO BID [facility] Last Admin: 06/08/17 10:01 Dose: 600 mg Sodium Chloride (Sodium Chloride 0.9%) 1,000 mls @ 100 mls/hr IV .Q10H [facility] Last Admin: 06/08/17 12:46 Dose: Not Given Cefepime HCl (Maxipime Iv 1 Gm Premix) 1 gm in 50 mls @ 100 mls/hr IVPB Q24H [facility] Last Admin: 06/08/17 10:02 Dose: 100 mls/hr Ibuprofen (Motrin Tab) 600 mg PO Q6H PRN PRN Reason: Fever >100.4 F Last Admin: 06/07/17 18:12 Dose: 600 mg Insulin Aspart (Novolog) 0 unit SC ACHS [facility] PRN Reason: Protocol Last Admin: 06/08/17 11:27 Dose: Not Given Magnesium Hydroxide (Milk Of Magnesia) 30 ml PO DAILY PRN PRN Reason: Constipation Metformin HCl (Glucophage) 1,000 mg PO BID [facility] Last Admin: 06/08/17 10:01 Dose: 1,000 mg Methylprednisolone (Solu-Medrol) 40 mg IV Q12 [facility] Last Admin: 06/08/17 10:01 Dose: 40 mg Montelukast Sodium (Singulair) 10 mg PO HS [facility] Last Admin: 06/07/17 22:05 Dose: 10 mg Promethazine HCl/Codeine (Phenergan/Codeine Oral Syrup) 5 ml PO Q8 PRN PRN Reason: Cough Last Admin: 06/08/17 04:15 Dose: 5 ml Roflumilast (Daliresp) 500 mcg PO DAILY [facility] Last Admin: 06/08/17 10:01 Dose: 500 mcg Fluticasone/Salmeterol (Advair Diskus 250/50) 1 puff INH RBID [facility] Last Admin: 06/08/17 09:42 Dose: 1 puff Vitamin B Complex/Vitamin C (Berocca) 1 tab PO DAILY [facility] Last Admin: 06/08/17 10:01 Dose: 1 tab Warfarin Sodium (Coumadin) 5 mg PO 1800 [facility] Stop: 06/08/17 18:01 - Labs Labs: 06/08/17 07:15 06/06/17 14:10 PT 21.2 SECONDS (9.7-12.2) H 06/08/17 07:15 INR 1.9 06/08/17 07:15 - Constitutional Appears: Well, No Acute Distress - Respiratory Exam Respiratory Exam: Decreased Breath Sounds, Clear to Ausculation Bilateral, NORMAL BREATHING PATTERN - Cardiovascular Exam Cardiovascular Exam: Tachycardia, REGULAR RHYTHM, +S1, +S2 - GI/Abdominal Exam GI & Abdominal Exam: Soft (abdominal incison completely healed ), Normal Bowel Sounds - Neurological Exam Neurological Exam: Awake, Oriented x3 Assessment and Plan - Assessment and Plan (Free Text) Assessment: A/P 67 yr old mal e sent from [place] with fever a febrile since admission blood culture- negative so far patient clinically improved with cefepime CXR -No interval acute cardiopulmonary disease appreciated. D/W Dr. Garcia, stable for discharge back to [facility] today and continue augmentin for 5 more days Discharge plan discussed with patient who understands and agree with plan
[2017-06-08 16:27] VITALS: BP 123/79; PULSE 109; TEMP 97.8; O2SAT 96
--- NOTE | 2017-06-08 23:23 | CP.PCM.DIS ---
Provider - Provider Date of Admission: 06/06/17 14:44 Attending physician: Hal Garcia MD Diagnosis - Discharge Diagnosis (1) Fever Status: Acute (2) Asthma Status: Acute (3) COPD exacerbation Status: Acute Priority: Medium (4) Allergic rhinitis Status: Chronic Priority: Medium Hospital Course - Lab Results Lab Results: Micro Results 06/08/17 Unknown Sputum Gram Stain - Final 06/06/17 13:15 Blood Blood Culture - Preliminary NO GROWTH AFTER 48 HOURS 06/06/17 14:15 Blood Blood Culture - Preliminary NO GROWTH AFTER 48 HOURS Most Recent Lab Values WBC 8.7 K/uL (4.8-10.8) 06/08/17 07:15 RBC 4.07 Mil/uL (4.40-5.90) L 06/08/17 07:15 Hgb 9.9 g/dL (12.0-18.0) L 06/08/17 07:15 Hct 30.2 % (35.0-51.0) L 06/08/17 07:15 MCV 74.1 fL (80.0-94.0) L 06/08/17 07:15 MCH 24.3 pg (27.0-31.0) L 06/08/17 07:15 MCHC 32.8 g/dL (33.0-37.0) L 06/08/17 07:15 RDW 18.8 % (11.5-14.5) H 06/08/17 07:15 Plt Count 315 K/uL (130-400) 06/08/17 07:15 MPV 8.2 fL (7.2-11.7) 06/08/17 07:15 Neut % (Auto) 79.0 % (50.0-75.0) H 06/08/17 07:15 Lymph % (Auto) 14.9 % (20.0-40.0) L 06/08/17 07:15 [place] % (Auto) 5.2 % (0.0-10.0) 06/08/17 07:15 Eos % (Auto) 0.4 % (0.0-4.0) 06/08/17 07:15 Baso % (Auto) 0.5 % (0.0-2.0) 06/08/17 07:15 Neut # 6.9 K/uL (1.8-7.0) 06/08/17 07:15 Lymph # 1.3 K/uL (1.0-4.3) 06/08/17 07:15 Steele # 0.5 K/uL (0.0-0.8) 06/08/17 07:15 Eos # 0.0 K/uL (0.0-0.7) 06/08/17 07:15 Baso # 0.0 K/uL (0.0-0.2) 06/08/17 07:15 Neutrophils % (Manual) 91 % (50-75) H 06/06/17 14:10 Lymphocytes % (Manual) 4 % (20-40) L 06/06/17 14:10 Monocytes % (Manual) 3 % (0-10) 06/06/17 14:10 Eosinophils % (Manual) 1 % (0-4) 06/06/17 14:10 Basophils % (Manual) 1 % (0-2) 06/06/17 14:10 Platelet Estimate Normal (NORMAL) 06/06/17 14:10 Anisocytosis (manual) Moderate 06/06/17 14:10 Ovalocytes Slight 06/06/17 14:10 PT 21.2 SECONDS (9.7-12.2) H 06/08/17 07:15 INR 1.9 06/08/17 07:15 pO2 56 mm/Hg (30-55) H 06/06/17 17:30 VBG pH 7.41 (7.32-7.43) 06/06/17 17:30 VBG pCO2 43 mmHg (40-60) 06/06/17 17:30 VBG HCO3 26.4 mmol/L 06/06/17 17:30 VBG Total CO2 28.6 mmol/L (22-28) H 06/06/17 17:30 VBG O2 Sat (Calc) 93.5 % (40-65) H 06/06/17 17:30 VBG Base Excess 2.2 mmol/L (0.0-2.0) H 06/06/17 17:30 VBG Potassium 3.7 mmol/L (3.6-5.2) 06/06/17 17:30 Sodium 138.0 mmol/l (132-148) 06/06/17 17:30 Chloride 111.0 mmol/L (98-107) H 06/06/17 17:30 Glucose 77 mg/dl (75-110) 06/06/17 17:30 Lactate 0.9 mmol/L (0.7-2.1) 06/06/17 17:30 FiO2 21.0 % 06/06/17 17:30 Sodium 131 mmol/L (132-148) L 06/06/17 14:10 Potassium 3.9 mmol/L (3.6-5.2) 06/06/17 14:10 Chloride 97 mmol/L (98-107) L 06/06/17 14:10 Carbon Dioxide 21 mmol/L (22-30) L 06/06/17 14:10 Anion Gap 17 (10-20) 06/06/17 14:10 BUN 5 mg/dL (9-20) L 06/06/17 14:10 Creatinine 0.4 mg/dL (0.8-1.5) L 06/06/17 14:10 Est GFR ( Amer) > 60 06/06/17 14:10 Est GFR (Non-Af Amer) > 60 06/06/17 14:10 POC Glucose (mg/dL) 178 mg/dL (65-110) H 06/08/17 17:19 Random Glucose 231 mg/dL (75-110) H 06/06/17 14:10 Calcium 9.4 mg/dl (8.6-10.4) 06/06/17 14:10 Total Bilirubin 0.4 mg/dL (0.2-1.3) 06/06/17 14:10 AST 48 U/L (17-59) 06/06/17 14:10 ALT 81 U/L (21-72) H D 06/06/17 14:10 Alkaline Phosphatase 144 U/L (38-126) H D 06/06/17 14:10 Total Protein 7.2 g/dL (6.3-8.3) 06/06/17 14:10 Albumin 3.7 g/dL (3.5-5.0) 06/06/17 14:10 Globulin 3.5 gm/dL (2.2-3.9) 06/06/17 14:10 Albumin/Globulin Ratio 1.1 (1.0-2.1) 06/06/17 14:10 Venous Blood Potassium 3.7 mmol/L (3.6-5.2) 06/06/17 17:30 Urine Color Yellow (YELLOW) 06/07/17 03:11 Urine Clarity Clear (Clear) 06/07/17 03:11 Urine pH 5.0 (5.0-8.0) 06/07/17 03:11 Ur Specific [place] 1.012 (1.003-1.030) 06/07/17 03:11 Urine Protein Negative mg/dL (NEGATIVE) 06/07/17 03:11 Urine Glucose (UA) 2+ mg/dL (Normal) H 06/07/17 03:11 Urine Ketones Negative mg/dL (NEGATIVE) 06/07/17 03:11 Urine Blood Negative (NEGATIVE) 06/07/17 03:11 Urine Nitrate Negative (NEGATIVE) 06/07/17 03:11 Urine Bilirubin Negative (NEGATIVE) 06/07/17 03:11 Urine Urobilinogen Normal mg/dL (0.2-1.0) 06/07/17 03:11 Ur Leukocyte Esterase Negative Eulalio/uL (Negative) 06/07/17 03:11 Urine WBC (Auto) 1 /hpf (0-5) 06/07/17 03:11 Ur Squamous Epith Cells 2 /hpf (0-5) 06/07/17 03:11 Influenza Typ A,B (EIA) Negative for flu a/b (NEGATIVE) 06/07/17 08:30 - Hospital Course Hospital Course: Patient seen and examined today , denies any chest pain, sob, cough, fever, chills, abdominal pain, N/V/D a febrile since admission No overnight events reported by RN Pt is for discharge today Discharge Exam - Head Exam Head Exam: NORMAL INSPECTION, NORMOCEPHALIC Discharge Plan - Discharge Medications Prescriptions: Amoxicillin/Clavulanate [Augmentin 875 MG-125 MG] 1 tab PO Q12 #10 tab - Follow Up Plan Condition: FAIR Disposition: TRANSF TO SNF Instructions: Heart Failure (DC), Heart Healthy Diet (DC), COPD (Chronic Obstructive Pulmonary Disease) (DC), Sepsis (GEN), Pneumonia (DC) Additional Instructions: PLEASE CALL DR. GARCIA UPON PATIENT ARRIVAL TO THE FACILITY CONTINUE AGUMENTIN X 5 DAYS BIPAP AT NIGHT - 12/40% PLEASE REPEAT CBC, BMP SUNDAY PLEASE REPEAT PT/ INR ON SUNDAY AND Q WEEK IF BETWEEN 2-3 CONTINUE ALL OTHER MEDICATION PER MED. REC. Referrals: Hal Garcia MD [Staff Provider] -
[2017-06-09] MEDS ORDERED: Influenza Vaccine 60 mcg/0.5 mL SYR (4YR UP) IM ONE (10:00)
[2017-06-09 11:30] LABS: LEGIONELLA AG URINE NEGATIVE (NEGATIVE)
== END 2017-06-08 17:49 | DRG 191 ==
LOC: C.ER 13:23 → C.9E 14:44 → C.6T 17:55
PROVIDERS: ADMIT Internal Medicine; ATTEND Internal Medicine
DX: J44.1 Chronic obstructive pulmonary disease with (acute) exacerbation (principal); I13.0 Hypertensive heart and chronic kidney disease with heart failure and stage 1 through stage 4 chronic kidney disease, or unspecified chronic kidney disease; D72.829 Elevated white blood cell count, unspecified; E11.22 Type 2 diabetes mellitus with diabetic chronic kidney disease; I50.9 Heart failure, unspecified; E78.00 Pure hypercholesterolemia, unspecified; G47.33 Obstructive sleep apnea (adult) (pediatric); N18.9 Chronic kidney disease, unspecified; Z87.01 Personal history of pneumonia (recurrent); Z87.442 Personal history of urinary calculi; Z87.891 Personal history of nicotine dependence; Z93.3 Colostomy status

== ENCOUNTER 2017-06-29 06:14 | Inpatient (IN) | payer MEDICARE ==
[2017-06-29 06:14] VITALS: BMI 27.3
--- NOTE | 2017-06-29 06:18 | C.PDOC ---
History Of Present Illness pt presents with increased shortness of breath. speaking in 2-3 word sentences. No f/c/n/v. Received solumedrol and nebs via ems Time Seen by Provider: 06/29/17 06:17 History Per: Patient History/Exam Limitations: clinical condition Onset/Duration Of Symptoms: Hrs Current Symptoms Are (Timing): Worse Initiating Event: Upper Respiratory Illness Exacerbating Factor(s): Coughing Current Respiratory Medications: See Home Med List Severity: Severe Pain Scale Rating Of: 8 Associated Symptoms: Anxiety. denies: Fever, Chills Reports Recently: Seen In ED, Treated By A Physician, Hospitalized Recent travel outside of the [place]: No Additional History Per: Patient Past Medical History Reviewed: Historical Data, Nursing Documentation, Vital Signs Vital Signs: Last Vital Signs Temp 98.5 F 06/29/17 06:30 Pulse 128 H 06/29/17 06:45 Resp 16 06/29/17 06:30 BP 148/86 06/29/17 06:30 Pulse Ox 100 06/29/17 06:36 - Medical History PMH: Anxiety, Arthritis, Asthma, Bronchitis, CHF, COPD, Diabetes, Emphysema, HTN , Hypercholesterolemia, Kidney Stones, Pneumonia, Chronic Kidney Disease, Sleep Apnea Denies: Gastritis - [facility] Procedures ASSISTANCE WITH RESPIRATORY VENTILATION, 24-96 HRS, CPAP (01/24/17) ASSISTANCE WITH RESPIRATORY VENTILATION, <24 HRS, CPAP (07/08/16) ASSISTANCE WITH RESPIRATORY VENTILATION, >96 HRS, CPAP (05/08/17) CONTINUOUS INVASIVE MECHANICAL VENTILATION <96 CONSEC HRS (11/29/14) DILATION OF RIGHT URETER WITH INTRALUMINAL DEVICE, ENDO (03/20/17) EXCISION OF SIGMOID COLON, ENDO, DIAGN (03/20/17) EXCISION OF STOMACH, ENDO, DIAGN (03/20/17) EXCISION OF TRANSVERSE COLON, ENDO, DIAGN (03/20/17) INFLUENZA VACCINATION (06/02/14) INSERT ENDOTRACHEAL TUBE (11/29/14) LARYGNOSCOPY AND OTH TRACHEOSCOPY (04/18/15) MEASURE OF CARDIAC SAMPL & PRESSURE, L HEART, PERC APPROACH (12/01/15) NON-INVASIVE MECHANICAL VENTILATION (04/18/15) RESECTION OF SIGMOID COLON, OPEN APPROACH (03/20/17) RESPIRATORY VENTILATION, GREATER THAN 96 CONSECUTIVE HOURS (03/20/17) Family History: States: No Known Family Hx - Social History Hx Tobacco Use: Yes (8 years ppd smoker. quit 1.5 years ago) Hx Alcohol Use: No Hx Substance Use: No - Immunization History Hx Tetanus Toxoid Vaccination: Yes Hx Influenza Vaccination: No Hx Pneumococcal Vaccination: Yes (12/01/2014) Review Of Systems Review Of Systems: ROS cannot be obtained secondary to pt's inabilty to answer questions. Physical Exam - Physical Exam Appears: In Acute Distress Skin: Warm, Dry Head: Normacephalic Eye(s): bilateral: Normal Inspection Oral Mucosa: Moist Lips: Normal Appearing Neck: Trachea Midline, Supple Chest: Symmetrical Cardiovascular: Rhythm Regular (tachy) Respiratory: Decreased Breath Sounds, No Rales, Rhonchi, Wheezing Gastrointestinal/Abdominal: Soft, No Tenderness, No Distention, Other ( colostomy right) Back: Normal Inspection Extremity: No Tenderness Extremity: Bilateral: Atraumatic Pulses: Left Dorsalis Pedis: Normal, Right Dorsalis Pedis: Normal Neurological/Psych: Oriented x3 Gait: Unable To Assess ED Course And Treatment - Laboratory Results Result Diagrams: 06/29/17 06:28 ECG: Interpreted By Me, Viewed By Me ECG Rhythm: Sinus Tachycardia (127), Nonspecific Changes (rad) Pulse Ox Interpretation: Normal - Radiology CXR: Interpreted by Me, Viewed By Me CXR Interpretation: Yes: COPD. No: Infiltrates, Fracture, Cardiomegaly Critical Care Time - Critical Care Note Total Time (in mins): 30 Documented critical care: time excludes all time spent performing seperately billable procedures. Disposition Discussed With : Hal Garcia Comment: accepted the pt on his service and took over the care at 6:47 AM Doctor Will See Patient In The: Hospital Counseled Patient/Family Regarding: Studies Performed, Diagnosis - Disposition Disposition: HOSPITALIZED Disposition Time: 06:18 Condition: GUARDED - POA Present On Arrival: Poor Glycemic Control - Clinical Impression Clinical Impression: Acute exacerbation of chronic obstructive pulmonary disease (COPD) Decision To Admit - Pt Status Changed To: Hospital Disposition Of: Inpatient - Admit Certification Admit to Inpatient:: After my assessment, the patient will require hospitalization for at least two midnights. This is because of the severity of symptoms shown, intensity of services needed, and/or the medical risk in this patient being treated as an outpatient. - InPatient: Physician Admission Certification: I certify that this patient requires 2 or more midnights of care for the following reason:: After my assessment, the patient will require hospitalization for at least two midnights. This is because of the severity of symptoms shown, intensity of services needed, and/or the medical risk in this patient being treated as an outpatient. - . Bed Request Type: Telemetry Admitting Physician: Hal Garcia Patient Diagnosis: Acute exacerbation of chronic obstructive pulmonary disease (COPD)
[2017-06-29 06:31] LABS: BASO # 0.2 K/uL (0.0-0.2); BASO % 1.1 % (0.0-2.0); EOS # 0.9 K/uL (0.0-0.7); EOS % 6.5 % (0.0-4.0); HEMATOCRIT 31.7 % (35.0-51.0); LYMPH # 4.1 K/uL (1.0-4.3); LYMPH % 28.9 % (20.0-40.0); MEAN CELL VOLUME 72.9 fL (80.0-94.0); MEAN CORPUSCULAR HEMOGLOBIN 23.2 pg (27.0-31.0); MEAN CORPUSCULAR HGB CONC 31.8 g/dL (33.0-37.0); MEAN PLATELET VOLUME 7.5 fL (7.2-11.7); MONO # 1.3 K/uL (0.0-0.8); RED CELL DISTRIBUTION WIDTH 16.2 % (11.5-14.5); WHITE BLOOD COUNT 14.1 K/uL (4.8-10.8)
[2017-06-29 06:34] LABS: VENOUS BLOOD GAS PCO2 64 mmHg (40-60); VENOUS BLOOD PH 7.31 (7.32-7.43)
[2017-06-29] MEDS: Albuterol-Ipratrop 3 mg / 0.5 (3 ml) UD IH SCH ×3 (06:34→07:03)
[2017-06-29 06:37] LABS: INR 2.6
[2017-06-29 06:42] LABS: ALB/GLOB RATIO 1.1 (1.0-2.1); ALKALINE PHOSPHATASE 139 U/L (38-126); ALT/SGPT 40 U/L (21-72); AST/SGOT 33 U/L (17-59); BILIRUBIN,TOTAL 0.4 mg/dL (0.2-1.3); BLOOD UREA NITROGEN 9 mg/dL (9-20); CALCIUM 8.4 mg/dl (8.6-10.4); CARBON DIOXIDE 27 mmol/L (22-30); CHLORIDE 101 mmol/L (98-107); GFR AFRICAN-AMERICAN > 60; GLUCOSE,RANDOM 99 mg/dL (75-110); POTASSIUM 4.5 mmol/L (3.6-5.2); SODIUM 137 mmol/L (132-148); TOTAL PROTEIN 7.7 g/dL (6.3-8.3)
[2017-06-29] MEDS ORDERED: OXYCODONE HCL 5 MG PO PRN (06:52)
[2017-06-29] MEDS ORDERED: Magnesium Hydroxide Susp 30 ml UD PO PRN (06:52)
[2017-06-29] MEDS ORDERED: Aluminum Hydroxide/Magnesium Hydroxide Susp (30 mL) PO PRN (06:52)
--- NOTE | 2017-06-29 07:58 | RAD ---
PROCEDURE: CHEST RADIOGRAPH, 1 VIEW HISTORY: SOB COMPARISON: Portable chest 06/06/2017. FINDINGS: LUNGS: Trace left basilar atelectasis is identified with infiltrate not completely excluded. No right-sided airspace disease identified. PLEURA: No pneumothorax or pleural fluid seen. CARDIOVASCULAR: Normal. OSSEOUS STRUCTURES: No significant abnormalities. VISUALIZED UPPER ABDOMEN: Normal. OTHER FINDINGS: None. IMPRESSION: Trace left basilar airspace disease is appreciated probably reflecting atelectasis. Clinically correlate further. Remainder the examination is stable and unremarkable.
[2017-06-29] MEDS ORDERED: Budesonide 0.5 mg/2 ml Inhal Susp UD IH SCH (08:00)
[2017-06-29] MEDS: Budesonide 0.5 mg/2 ml Inhal Susp UD IH SCH ×2 (08:22→19:28)
[2017-06-29] MEDS: Albuterol-Ipratrop 3 mg / 0.5 (3 ml) UD INH SCH ×3 (08:22→19:24)
[2017-06-29] MEDS: Fluticasone-Salmeterol 250-50mcg Diskus INH SCH ×2 (08:23→19:28)
[2017-06-29] MEDS ORDERED: guaiFENesin 600 mg ER Tab PO SCH (10:00)
[2017-06-29] MEDS: (Novolin R) Insulin Human Regular 100 units/ml vial SC SCH ×3 (10:25→21:41)
[2017-06-29] MEDS: Enoxaparin 40 mg Syringe SC SCH (10:30)
[2017-06-29] MEDS: Home Med 1 UNIT (Arformoterol [Brovana] 15 MCG) IH SCH ×2 (12:19→22:13)
[2017-06-29] MEDS: Multivitamin With Minerals Tab PO SCH (12:22)
[2017-06-29 14:44] LABS: RBC URINE < 1 /hpf (0-3); URINE BILIRUBIN NEGATIVE (NEGATIVE); URINE BLOOD NEGATIVE (NEGATIVE); URINE COLOR Yellow (YELLOW); URINE GLUCOSE (UA) NORMAL (Normal); URINE KETONE TRACE mg/dL (NEGATIVE); URINE LEUKOCYTE ESTERASE NEG Leu/uL (Negative); URINE PROTEIN NEGATIVE (NEGATIVE); URINE UROBILINOGEN NORMAL mg/dL (0.2-1.0); WBC URINE 1 /hpf (0-5)
--- NOTE | 2017-06-29 14:53 | CP.PCM.CON ---
History of Present Illness - History of Present Illness History of Present Illness: reason for consultation: shortness of breath 67-year-old male with history of end-stage lung disease, anxiety, obstructive sleep apnea presented to emergency room with worsening shortness of breath and chest tightness. In the emergency room patient was placed on BiPAP for respirator stress. Review of Systems - Review of Systems All systems: reviewed and no additional remarkable complaints except (shortness of breath) Past Patient History - Infectious Disease Hx of Infectious Diseases: None - Past Medical History & Family History Past Medical History?: Yes - Past Social History Smoking Status: Former Smoker - CARDIAC Hx Congestive Heart Failure: Yes Hx Hypercholesterolemia: Yes Hx Hypertension: Yes - PULMONARY Hx Asthma: Yes Hx Bronchitis: Yes Hx Chronic Obstructive Pulmonary Disease (COPD): Yes Hx Emphysema: Yes Hx Pneumonia: Yes Hx Sleep Apnea: Yes - NEUROLOGICAL Hx Neurological Disorder: No - HEENT Hx HEENT Problems: Yes Hx Cataracts: Yes (left cataract removed, r cataract) Other/Comment: wears eyeglasses for distance - RENAL Hx Chronic Kidney Disease: Yes Hx Kidney Stones: Yes - ENDOCRINE/METABOLIC Hx Endocrine Disorders: Yes Hx Diabetes Mellitus Type 2: Yes - HEMATOLOGICAL/ONCOLOGICAL Hx Blood Disorders: Yes Other/Comment: intestinal ademona - INTEGUMENTARY Hx Dermatological Problems: No - MUSCULOSKELETAL/RHEUMATOLOGICAL Hx Falls: Yes (hx on street many years ago) - GASTROINTESTINAL Hx Gastritis: No - PSYCHIATRIC Hx Anxiety: Yes Hx Substance Use: No - SURGICAL HISTORY Hx Surgeries: Yes Hx Cardiac Catheterization: Yes (11/2015) Other/Comment: colon resection with right ileostomy - ANESTHESIA Hx Anesthesia: Yes Hx Anesthesia Reactions: No Hx Malignant Hyperthermia: No Meds Allergies/Adverse Reactions: Allergies Allergy/AdvReac Type Severity Reaction Status Date / Time acetaminophen [From Tylenol] Allergy RASH Verified 06/29/17 06:20 FISH Allergy SWELLING Verified 06/29/17 06:20 shrimp Allergy SHORTNESS Verified 06/29/17 06:20 OF BREATH IV dye Allergy ANAPHYLAXIS Uncoded 05/18/17 21:40 - Medications Medications: Current Medications Al Hydrox/Mg Hydrox/Simethicone (Maalox 30 Ml) 30 ml PO Q6H PRN PRN Reason: Indigestion / Heartburn Albuterol/Ipratropium (Duoneb 3 Mg/0.5 Mg (3 Ml) Ud) 3 ml INH RQ6 [facility] Last Admin: 06/29/17 13:46 Dose: 3 ml Alprazolam (Xanax) 0.5 mg PO Q12 [facility] Stop: 07/06/17 10:01 Last Admin: 06/29/17 11:00 Dose: 0.5 mg Budesonide (Pulmicort Respules) 0.5 mg IH RQ12 [facility]PL[facility]ED BY [facility] Last Admin: 06/29/17 08:22 Dose: 0.5 mg Enoxaparin Sodium (Lovenox) 40 mg SC DAILY [facility]PL[facility] Last Admin: 06/29/17 10:30 Dose: 40 mg Guaifenesin (Mucinex La) 300 mg PO BID [facility]PL[facility] Home Med (Arformoterol [Brovana]) 15 mcg IH Q12 REPLACED BY [facility] Last Admin: 06/29/17 12:19 Dose: Not Given Insulin Human Regular (Novolin R) 0 unit SC ACHS [facility]PL[facility]ED [facility] PRN Reason: Protocol Magnesium Hydroxide (Milk Of Magnesia) 30 ml PO DAILY PRN PRN Reason: Constipation Metformin HCl (Glucophage) 1,000 mg PO BID [facility]PL[facility] Last Admin: 06/29/17 10:35 Dose: 1,000 mg Methylprednisolone (Solu-Medrol) 40 mg IV Q12 [facility] Last Admin: 06/29/17 11:15 Dose: 40 mg Montelukast Sodium (Singulair) 10 mg PO HS [facility]PL[facility] Multivitamins/Minerals (Therapeutic-M Tab) 1 tab PO DAILY [facility]PL[facility] BY [facility] Last Admin: 06/29/17 12:22 Dose: Not Given Oxycodone HCl (Oxycodone Immediate Release Tab) 5 mg PO Q6 PRN PRN Reason: Pain, moderate (4-7) Roflumilast (Daliresp) 500 mcg PO DAILY [facility]PLACED BY [facility] Fluticasone/Salmeterol (Advair Diskus 250/50) 1 puff INH RBID REPLACED BY [facility] Last Admin: 06/29/17 08:23 Dose: 1 puff Physical Exam - Head Exam Head Exam: ATRAUMATIC, NORMOCEPHALIC - ENT Exam ENT Exam: Mucous Membranes Moist - Respiratory Exam Respiratory Exam: Decreased Breath Sounds - Cardiovascular Exam Cardiovascular Exam: REGULAR RHYTHM - GI/Abdominal Exam GI & Abdominal Exam: Normal Bowel Sounds, Soft - Extremities Exam Extremities exam: Positive for: normal inspection Results - Vital Signs Recent Vital Signs: Last Vital Signs Temp 98 F 06/29/17 10:00 Pulse 115 H 06/29/17 13:47 Resp 20 06/29/17 10:00 BP 130/76 06/29/17 10:00 Pulse Ox 99 06/29/17 10:00 - Labs Result Diagrams: 06/29/17 06:28 06/29/17 06:28 Labs: Laboratory Results - last 24 hr 06/29/17 06/29/17 06/29/17 06:27 06:28 06:28 WBC 14.1 H D RBC 4.35 L Hgb 10.1 L Hct 31.7 L MCV 72.9 L MCH 23.2 L MCHC 31.8 L RDW 16.2 H Plt Count 332 MPV 7.5 Neut % (Auto) 54.5 Lymph % (Auto) 28.9 [place] % (Auto) 9.0 Eos % (Auto) 6.5 H Baso % (Auto) 1.1 Neut # 7.7 H Lymph # 4.1 [place] # 1.3 H Eos # 0.9 H Baso # 0.2 PT 29.9 H* INR 2.6 pO2 VBG pH VBG pCO2 VBG HCO3 VBG Total CO2 VBG O2 Sat (Calc) VBG Base Excess VBG Potassium Glucose Lactate Sodium Potassium Chloride Carbon Dioxide Anion Gap BUN Creatinine Est GFR ( Amer) Est GFR (Non-Af Amer) POC Glucose (mg/dL) 101 Random Glucose Calcium Total Bilirubin AST ALT Alkaline Phosphatase Troponin I NT-Pro-B Natriuret Pep Total Protein Albumin Globulin Albumin/Globulin Ratio Venous Blood Potassium 06/29/17 06/29/17 06/29/17 06:28 06:30 09:31 WBC RBC Hgb Hct MCV MCH MCHC RDW Plt Count MPV Neut % (Auto) Lymph % (Auto) [place] % (Auto) Eos % (Auto) Baso % (Auto) Neut # Lymph # [place] # Eos # Baso # PT INR pO2 35 VBG pH 7.31 L VBG pCO2 64 H VBG HCO3 27.1 VBG Total CO2 34.2 H VBG O2 Sat (Calc) 66.9 H VBG Base Excess 4.0 H VBG Potassium 3.9 Glucose 118 H Lactate 2.8 H Sodium 137 142.0 Potassium 4.5 Chloride 101 109.0 H Carbon Dioxide 27 Anion Gap 14 BUN 9 Creatinine 0.6 L Est GFR ( Amer) > 60 Est GFR (Non-Af Amer) > 60 POC Glucose (mg/dL) 205 H Random Glucose 99 Calcium 8.4 L Total Bilirubin 0.4 AST 33 ALT 40 Alkaline Phosphatase 139 H Troponin I < 0.0120 NT-Pro-B Natriuret Pep 31.1 Total Protein 7.7 Albumin 4.0 Globulin 3.7 Albumin/Globulin Ratio 1.1 Venous Blood Potassium 3.9 06/29/17 12:01 WBC RBC Hgb Hct MCV MCH MCHC RDW Plt Count MPV Neut % (Auto) Lymph % (Auto) [place] % (Auto) Eos % (Auto) Baso % (Auto) Neut # Lymph # [place] # Eos # Baso # PT INR pO2 VBG pH VBG pCO2 VBG HCO3 VBG Total CO2 VBG O2 Sat (Calc) VBG Base Excess VBG Potassium Glucose Lactate Sodium Potassium Chloride Carbon Dioxide Anion Gap BUN Creatinine Est GFR ( Amer) Est GFR (Non-Af Amer) POC Glucose (mg/dL) 234 H Random Glucose Calcium Total Bilirubin AST ALT Alkaline Phosphatase Troponin I NT-Pro-B Natriuret Pep Total Protein Albumin Globulin Albumin/Globulin Ratio Venous Blood Potassium Assessment & Plan (1) Acute exacerbation of chronic obstructive pulmonary disease (COPD) Status: Chronic Priority: High Comment: continue nebulizer treatment, IV steroids and BiPAP. Elevated white count secondary to steroids. Continue anxiolytic (2) Acute and chronic respiratory failure ([id number]) Status: Acute
[2017-06-29] MEDS: oxyCODONE 5 mg Immediate Release Tab PO PRN (15:54)
[2017-06-29] MEDS: guaiFENesin 600 mg ER Tab PO SCH (17:22)
--- NOTE | 2017-06-29 17:53 | VASCLAB ---
PROCEDURE: Lower Extremity Venous Duplex Exam. HISTORY: bilateral swelling legs PRIORS: None. TECHNIQUE: Bilateral common femoral, femoral, popliteal and posterior tibial, peroneal and great saphenous veins were evaluated. Flow was assessed with color Doppler, compressibility, assessment of phasic flow and augmentation response. Report prepared by Guillermo Gayle, TORREY, RVT FINDINGS: RIGHT: 1. Common Femoral Vein: 1.1. Compressibility - Fully compressible: Thrombus - None : Flow - Phasic: Augmentation -Normal: Reflux - None. 2. Femoral Vein: 2.1. Compressibility - Fully compressible: Thrombus - None : Flow - Phasic: Augmentation -Normal: Reflux - None. 3. Popliteal Vein: 3.1. Compressibility - Fully compressible: Thrombus - None : Flow - Phasic: Augmentation -Normal: Reflux - None. 4. Posterior Tibial Vein: 4.1. Compressibility - Fully compressible: Thrombus - None: Flow - Phasic: Augmentation -Normal: Reflux - None. 5. Peroneal Vein: 5.1. Compressibility - Fully compressible: Thrombus - None: Flow - Phasic: Augmentation -Normal: Reflux - None. 6. Great Saphenous Vein: 6.1. Compressibility - Fully compressible: Thrombus - None: Flow - Phasic: Augmentation - Normal: Reflux - None. LEFT: 1. Common Femoral Vein: 1.1. Compressibility - Fully compressible: Thrombus - None: Flow - Phasic: Augmentation -Normal: Reflux - None. 2. Femoral Vein: 2.1. Compressibility - Fully compressible: Thrombus - None: Flow - Phasic: Augmentation -Normal: Reflux - None. 3. Popliteal Vein: 3.1. Compressibility - Fully compressible: Thrombus - None : Flow - Phasic: Augmentation -Normal: Reflux - None. 4. Posterior Tibial Vein: 4.1. Compressibility - Fully compressible: Thrombus - None: Flow - Phasic: Augmentation -Normal: Reflux - None. 5. Peroneal Vein: 5.1. Compressibility - Fully compressible: Thrombus - None: Flow - Phasic: Augmentation -Normal: Reflux - None. 6. Great Saphenous Vein: 6.1. Compressibility - Fully compressible: Thrombus - None: Flow - Phasic: Augmentation - Normal: Reflux - None. OTHER FINDINGS: Right: None significant. Left: None significant. IMPRESSION: Right: No evidence of deep or superficial vein thrombosis of the right lower extremity. Normal valve function noted of the right side. Left: No evidence of deep or superficial vein thrombosis of the left lower extremity. Normal valve function noted of the left side.
--- NOTE | 2017-06-29 18:12 | CARD ---
APPROVED REPORT EKG Measurement Heart [id number] <Conclusion> Sinus tachycardia with fusion complexes Rightward axis Borderline ECG
--- NOTE | 2017-06-29 23:36 | CP.PCM.HP ---
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 In the emergency room patient was placed on BiPAP for respirator stress.he was seen by me and pulmonolisgit 3 days ago and he was fine. Present on Admission - Present on Admission Any Indicators Present on Admission: Yes Review of Systems - Review of Systems Systems not reviewed;Unavailable: Acuity of Condition, Respiratory Distress - Constitutional Constitutional: Fatigue, Lethargy, Malaise - EENT Eyes: absent: As Per HPI, Blind Spots, Blurred Vision, Change in Vision, Decreased Night Vision, Diplopia, Discharge, Dry Eye, Exophthalmos, Floaters, Irritation, Itchy Eyes, Loss of Peripheral Vision, Pain, Photophobia, Requires Corrective Lenses, Sees Flashes, Spots in Vision, Tunnel Vision, Other Visual Disturbances, Loss of Vision, Other Nose/Mouth/Throat: Nasal Congestion - Cardiovascular Cardiovascular: Chest Pain, Dyspnea - Respiratory Respiratory: Cough, Dyspnea - Genitourinary Genitourinary: absent: As Per HPI, Change in Urinary Stream, Difficulty Urinating, Dysuria, Flank Pain, Hematuria, Pyuria, Nocturia, Urinary Incontinence, Urinary Frequency, Urinary Hesitance, Urinary Urgency, Voiding Freq/Small Amts, Freq UTI, Hx Renal/Bladder Calculi, Hx /Renal Surgery, Bladder Distension, Other Past Patient History - Infectious Disease Hx of Infectious Diseases: None - Past Medical History & Family History Past Medical History?: Yes - Past Social History Smoking Status: Former Smoker - CARDIAC Hx Congestive Heart Failure: Yes Hx Hypercholesterolemia: Yes Hx Hypertension: Yes - PULMONARY Hx Asthma: Yes Hx Bronchitis: Yes Hx Chronic Obstructive Pulmonary Disease (COPD): Yes Hx Emphysema: Yes Hx Pneumonia: Yes Hx Sleep Apnea: Yes - NEUROLOGICAL Hx Neurological Disorder: No - HEENT Hx HEENT Problems: Yes Hx Cataracts: Yes (left cataract removed, r cataract) Other/Comment: wears eyeglasses for distance - RENAL Hx Chronic Kidney Disease: Yes Hx Kidney Stones: Yes - ENDOCRINE/METABOLIC Hx Endocrine Disorders: Yes Hx Diabetes Mellitus Type 2: Yes - HEMATOLOGICAL/ONCOLOGICAL Hx Blood Disorders: Yes Other/Comment: intestinal ademona - INTEGUMENTARY Hx Dermatological Problems: No - MUSCULOSKELETAL/RHEUMATOLOGICAL Hx Falls: Yes (hx on street many years ago) - GASTROINTESTINAL Hx Gastritis: No - PSYCHIATRIC Hx Anxiety: Yes Hx Substance Use: No - SURGICAL HISTORY Hx Surgeries: Yes Hx Cardiac Catheterization: Yes (11/2015) Other/Comment: colon resection with right ileostomy - ANESTHESIA Hx Anesthesia: Yes Hx Anesthesia Reactions: No Hx Malignant Hyperthermia: No Meds Allergies/Adverse Reactions: Allergies Allergy/AdvReac Type Severity Reaction Status Date / Time acetaminophen [From Tylenol] Allergy RASH Verified 06/29/17 06:20 FISH Allergy SWELLING Verified 06/29/17 06:20 shrimp Allergy SHORTNESS Verified 06/29/17 06:20 OF BREATH IV dye Allergy ANAPHYLAXIS Uncoded 05/18/17 21:40 Physical Exam - Constitutional Appears: No Acute Distress - Head Exam Head Exam: ATRAUMATIC, NORMAL INSPECTION, NORMOCEPHALIC - Eye Exam Eye Exam: EOMI, Normal appearance, PERRL Pupil Exam: NORMAL ACCOMODATION, PERRL - Respiratory Exam Respiratory Exam: Decreased Breath Sounds, Rhonchi, Wheezes - Cardiovascular Exam Cardiovascular Exam: REGULAR RHYTHM - GI/Abdominal Exam GI & Abdominal Exam: Normal Bowel Sounds, Soft. absent: Tenderness Results - Vital Signs Recent Vital Signs: Last Vital Signs Temp 97.6 F 06/29/17 22:50 Pulse 107 H 06/29/17 22:50 Resp 20 06/29/17 22:50 BP 133/75 06/29/17 22:50 Pulse Ox 100 06/29/17 22:50 - Labs Result Diagrams: 06/29/17 06:28 06/29/17 06:28 Labs: Laboratory Results - last 24 hr 06/29/17 06/29/17 06/29/17 06:27 06:28 06:28 WBC 14.1 H D RBC 4.35 L Hgb 10.1 L Hct 31.7 L MCV 72.9 L MCH 23.2 L MCHC 31.8 L RDW 16.2 H Plt Count 332 MPV 7.5 Neut % (Auto) 54.5 Lymph % (Auto) 28.9 [place] % (Auto) 9.0 Eos % (Auto) 6.5 H Baso % (Auto) 1.1 Neut # 7.7 H Lymph # 4.1 [place] # 1.3 H Eos # 0.9 H Baso # 0.2 PT 29.9 H* INR 2.6 pO2 VBG pH VBG pCO2 VBG HCO3 VBG Total CO2 VBG O2 Sat (Calc) VBG Base Excess VBG Potassium Glucose Lactate Sodium Potassium Chloride Carbon Dioxide Anion Gap BUN Creatinine Est GFR ( Amer) Est GFR (Non-Af Amer) POC Glucose (mg/dL) 101 Random Glucose Calcium Total Bilirubin AST ALT Alkaline Phosphatase Troponin I NT-Pro-B Natriuret Pep Total Protein Albumin Globulin Albumin/Globulin Ratio Venous Blood Potassium Urine Color Urine Clarity Urine pH Ur Specific [place] Urine Protein Urine Glucose (UA) Urine Ketones Urine Blood Urine Nitrate Urine Bilirubin Urine Urobilinogen Ur Leukocyte Esterase Urine WBC (Auto) Urine RBC (Auto) 06/29/17 06/29/17 06/29/17 06:28 06:30 09:31 WBC RBC Hgb Hct MCV MCH MCHC RDW Plt Count MPV Neut % (Auto) Lymph % (Auto) [place] % (Auto) Eos % (Auto) Baso % (Auto) Neut # Lymph # [place] # Eos # Baso # PT INR pO2 35 VBG pH 7.31 L VBG pCO2 64 H VBG HCO3 27.1 VBG Total CO2 34.2 H VBG O2 Sat (Calc) 66.9 H VBG Base Excess 4.0 H VBG Potassium 3.9 Glucose 118 H Lactate 2.8 H Sodium 137 142.0 Potassium 4.5 Chloride 101 109.0 H Carbon Dioxide 27 Anion Gap 14 BUN 9 Creatinine 0.6 L Est GFR ( Amer) > 60 Est GFR (Non-Af Amer) > 60 POC Glucose (mg/dL) 205 H Random Glucose 99 Calcium 8.4 L Total Bilirubin 0.4 AST 33 ALT 40 Alkaline Phosphatase 139 H Troponin I < 0.0120 NT-Pro-B Natriuret Pep 31.1 Total Protein 7.7 Albumin 4.0 Globulin 3.7 Albumin/Globulin Ratio 1.1 Venous Blood Potassium 3.9 Urine Color Urine Clarity Urine pH Ur Specific [place] Urine Protein Urine Glucose (UA) Urine Ketones Urine Blood Urine Nitrate Urine Bilirubin Urine Urobilinogen Ur Leukocyte Esterase Urine WBC (Auto) Urine RBC (Auto) 06/29/17 06/29/17 06/29/17 12:01 14:32 17:07 WBC RBC Hgb Hct MCV MCH MCHC RDW Plt Count MPV Neut % (Auto) Lymph % (Auto) [place] % (Auto) Eos % (Auto) Baso % (Auto) Neut # Lymph # [place] # Eos # Baso # PT INR pO2 VBG pH VBG pCO2 VBG HCO3 VBG Total CO2 VBG O2 Sat (Calc) VBG Base Excess VBG Potassium Glucose Lactate Sodium Potassium Chloride Carbon Dioxide Anion Gap BUN Creatinine Est GFR ( Amer) Est GFR (Non-Af Amer) POC Glucose (mg/dL) 234 H 251 H Random Glucose Calcium Total Bilirubin AST ALT Alkaline Phosphatase Troponin I NT-Pro-B Natriuret Pep Total Protein Albumin Globulin Albumin/Globulin Ratio Venous Blood Potassium Urine Color Yellow Urine Clarity Clear Urine pH 5.0 Ur Specific [place] 1.023 Urine Protein Negative Urine Glucose (UA) Normal Urine Ketones Trace Urine Blood Negative Urine Nitrate Negative Urine Bilirubin Negative Urine Urobilinogen Normal Ur Leukocyte Esterase Neg Urine WBC (Auto) 1 Urine RBC (Auto) < 1 06/29/17 06/29/17 21:17 21:34 WBC RBC Hgb Hct MCV MCH MCHC RDW Plt Count MPV Neut % (Auto) Lymph % (Auto) [place] % (Auto) Eos % (Auto) Baso % (Auto) Neut # Lymph # [place] # Eos # Baso # PT INR pO2 VBG pH VBG pCO2 VBG HCO3 VBG Total CO2 VBG O2 Sat (Calc) VBG Base Excess VBG Potassium Glucose Lactate Sodium Potassium Chloride Carbon Dioxide Anion Gap BUN Creatinine Est GFR ( Amer) Est GFR (Non-Af Amer) POC Glucose (mg/dL) 55 L 94 Random Glucose Calcium Total Bilirubin AST ALT Alkaline Phosphatase Troponin I NT-Pro-B Natriuret Pep Total Protein Albumin Globulin Albumin/Globulin Ratio Venous Blood Potassium Urine Color Urine Clarity Urine pH Ur Specific [place] Urine Protein Urine Glucose (UA) Urine Ketones Urine Blood Urine Nitrate Urine Bilirubin Urine Urobilinogen Ur Leukocyte Esterase Urine WBC (Auto) Urine RBC (Auto) Assessment & Plan (1) Acute exacerbation of chronic obstructive pulmonary disease (COPD) Status: Chronic Priority: High (2) Abdominal pain Status: Acute (3) S/P colon resection Status: Acute (4) Allergic rhinitis Status: Chronic Priority: Medium (5) Steroid-induced diabetes Status: Chronic (6) Tracheobronchitis Status: Chronic
[2017-06-30] MEDS: Albuterol-Ipratrop 3 mg / 0.5 (3 ml) UD INH SCH ×4 (01:42→19:57)
[2017-06-30] MEDS: (Novolin R) Insulin Human Regular 100 units/ml vial SC SCH ×4 (08:01→22:31)
[2017-06-30] MEDS: Budesonide 0.5 mg/2 ml Inhal Susp UD IH SCH ×2 (08:15→19:57)
[2017-06-30] MEDS: Home Med 1 UNIT (Arformoterol [Brovana] 15 MCG) IH SCH (09:56)
[2017-06-30] MEDS: guaiFENesin 600 mg ER Tab PO SCH ×2 (09:57→17:54)
[2017-06-30] MEDS: Enoxaparin 40 mg Syringe SC SCH (09:57)
[2017-06-30] MEDS: Multivitamin With Minerals Tab PO SCH (09:58)
--- NOTE | 2017-06-30 12:54 | CP.PCM.PN ---
Subjective - Date & Time of Evaluation Date of Evaluation: 06/30/17 Time of Evaluation: 10:25 - Subjective Subjective: patient seen and examined Less shortness of breath less cough Off BiPAP Objective - Vital Signs/Intake and Output Vital Signs (last 24 hours): Temp Pulse Resp BP Pulse Ox 97.9 F 75 20 114/66 99 06/29/17 23:15 06/30/17 04:32 06/29/17 23:15 06/29/17 23:15 06/29/17 23:15 Intake and Output: 06/30/17 06/30/17 06:59 18:59 Intake Total 120 Output Total 700 Balance -580 - Medications Medications: Current Medications Al Hydrox/Mg Hydrox/Simethicone (Maalox 30 Ml) 30 ml PO Q6H PRN PRN Reason: Indigestion / Heartburn Albuterol/Ipratropium (Duoneb 3 Mg/0.5 Mg (3 Ml) Ud) 3 ml INH RQ6 [facility] Last Admin: 06/30/17 08:15 Dose: 3 ml Alprazolam (Xanax) 0.5 mg PO Q12 [facility] Stop: 07/06/17 10:01 Last Admin: 06/30/17 09:58 Dose: 0.5 mg Budesonide (Pulmicort Respules) 0.5 mg IH RQ12 [facility] Last Admin: 06/30/17 08:15 Dose: 0.5 mg Enoxaparin Sodium (Lovenox) 40 mg SC DAILY [facility] Last Admin: 06/30/17 09:57 Dose: 40 mg Famotidine (Pepcid) 20 mg PO DAILY [facility] Last Admin: 06/30/17 09:57 Dose: 20 mg Guaifenesin (Mucinex La) 600 mg PO BID [facility] Last Admin: 06/30/17 09:57 Dose: 600 mg Home Med (Arformoterol [Brovana]) 15 mcg IH Q12 [facility] Insulin Human Regular (Novolin R) 0 unit SC ACHS [facility] PRN Reason: Protocol Last Admin: 06/30/17 12:03 Dose: Not Given Magnesium Hydroxide (Milk Of Magnesia) 30 ml PO DAILY PRN PRN Reason: Constipation Metformin HCl (Glucophage) 1,000 mg PO BID [facility] Last Admin: 06/30/17 09:57 Dose: 1,000 mg Methylprednisolone (Solu-Medrol) 40 mg IV Q12 [facility] Montelukast Sodium (Singulair) 10 mg PO HS [facility] Last Admin: 06/29/17 21:41 Dose: 10 mg Multivitamins/Minerals (Therapeutic-M Tab) 1 tab PO DAILY [facility] Last Admin: 06/30/17 09:58 Dose: 1 tab Oxycodone HCl (Oxycodone Immediate Release Tab) 5 mg PO Q6 PRN PRN Reason: Pain, moderate (4-7) Last Admin: 06/29/17 15:54 Dose: 5 mg Roflumilast (Daliresp) 500 mcg PO DAILY [facility] Last Admin: 06/30/17 09:57 Dose: 500 mcg Fluticasone/Salmeterol (Advair Diskus 250/50) 1 puff INH RBID [facility] Last Admin: 06/29/17 19:28 Dose: Not Given - Labs Labs: 06/29/17 06:28 06/29/17 06:28 PT 29.9 SECONDS (9.7-12.2) H* 06/29/17 06:28 INR 2.6 06/29/17 06:28 - Head Exam Head Exam: ATRAUMATIC, NORMOCEPHALIC - Eye Exam Eye Exam: EOMI - Neck Exam Neck Exam: Normal Inspection - Respiratory Exam Respiratory Exam: Decreased Breath Sounds - Cardiovascular Exam Cardiovascular Exam: REGULAR RHYTHM Assessment and Plan (1) Acute exacerbation of chronic obstructive pulmonary disease (COPD) Assessment & Plan: Continue present treatment BiPAP as needed Taper steroids Status: Chronic (2) Acute and chronic respiratory failure ([id number]) Status: Acute
[2017-06-30] MEDS: Fluticasone-Salmeterol 250-50mcg Diskus INH SCH (19:57)
[2017-06-30] MEDS: MethylPREDNISolone 40 mg Vial IV SCH (21:16)
--- NOTE | 2017-06-30 23:13 | CP.PCM.PN ---
Subjective - Date & Time of Evaluation Date of Evaluation: 06/30/17 Time of Evaluation: 02:40 - Subjective Subjective: Pt seen and evalauted, is coughing, wheezing Objective - Vital Signs/Intake and Output Vital Signs (last 24 hours): Temp Pulse Resp BP Pulse Ox 98.0 F 76 20 113/74 98 06/30/17 15:24 06/30/17 20:00 06/30/17 15:24 06/30/17 15:24 06/30/17 15:24 - Medications Medications: Current Medications Al Hydrox/Mg Hydrox/Simethicone (Maalox 30 Ml) 30 ml PO Q6H PRN PRN Reason: Indigestion / Heartburn Albuterol/Ipratropium (Duoneb 3 Mg/0.5 Mg (3 Ml) Ud) 3 ml INH RQ6 [facility] Last Admin: 06/30/17 19:57 Dose: 3 ml Alprazolam (Xanax) 0.5 mg PO Q12 [facility] Stop: 07/06/17 10:01 Last Admin: 06/30/17 21:16 Dose: 0.5 mg Budesonide (Pulmicort Respules) 0.5 mg IH RQ12 [facility] Last Admin: 06/30/17 19:57 Dose: 0.5 mg Enoxaparin Sodium (Lovenox) 40 mg SC DAILY [facility] Last Admin: 06/30/17 09:57 Dose: 40 mg Famotidine (Pepcid) 20 mg PO DAILY [facility] Last Admin: 06/30/17 09:57 Dose: 20 mg Guaifenesin (Mucinex La) 600 mg PO BID [facility] Last Admin: 06/30/17 17:54 Dose: 600 mg Home Med (Arformoterol [Brovana]) 15 mcg IH Q12 [facility] Insulin Human Regular (Novolin R) 0 unit SC ACHS [facility] PRN Reason: Protocol Last Admin: 06/30/17 22:31 Dose: Not Given Magnesium Hydroxide (Milk Of Magnesia) 30 ml PO DAILY PRN PRN Reason: Constipation Metformin HCl (Glucophage) 1,000 mg PO BID [facility] Last Admin: 06/30/17 17:54 Dose: 1,000 mg Methylprednisolone (Solu-Medrol) 40 mg IV Q12 [facility] Last Admin: 06/30/17 21:16 Dose: 40 mg Montelukast Sodium (Singulair) 10 mg PO HS [facility] Last Admin: 06/30/17 21:16 Dose: 10 mg Multivitamins/Minerals (Therapeutic-M Tab) 1 tab PO DAILY [facility] Last Admin: 06/30/17 09:58 Dose: 1 tab Oxycodone HCl (Oxycodone Immediate Release Tab) 5 mg PO Q6 PRN PRN Reason: Pain, moderate (4-7) Last Admin: 06/29/17 15:54 Dose: 5 mg Roflumilast (Daliresp) 500 mcg PO DAILY [facility] Last Admin: 06/30/17 09:57 Dose: 500 mcg Fluticasone/Salmeterol (Advair Diskus 250/50) 1 puff INH RBID [facility] Last Admin: 06/30/17 19:57 Dose: 1 puff - Labs Labs: 06/29/17 06:28 06/29/17 06:28 PT 29.9 SECONDS (9.7-12.2) H* 06/29/17 06:28 INR 2.6 06/29/17 06:28 - Constitutional Appears: No Acute Distress - Head Exam Head Exam: ATRAUMATIC, NORMAL INSPECTION, NORMOCEPHALIC - Eye Exam Eye Exam: EOMI, Normal appearance, PERRL Pupil Exam: NORMAL ACCOMODATION, PERRL - Respiratory Exam Respiratory Exam: Decreased Breath Sounds, Rales, Rhonchi, Wheezes - Cardiovascular Exam Cardiovascular Exam: REGULAR RHYTHM, +S1, +S2. absent: Murmur - GI/Abdominal Exam GI & Abdominal Exam: Soft, Normal Bowel Sounds. absent: Tenderness - Neurological Exam Neurological Exam: Alert, Awake, CN II-XII Intact, Normal Gait, Oriented x3 - Psychiatric Exam Psychiatric exam: Normal Affect, Normal Mood Assessment and Plan (1) Acute exacerbation of chronic obstructive pulmonary disease (COPD) Status: Chronic (2) Abdominal pain Status: Acute (3) S/P colon resection Status: Acute (4) Allergic rhinitis Status: Chronic (5) Steroid-induced diabetes Status: Chronic (6) Tracheobronchitis Status: Chronic
[2017-07-01] MEDS: oxyCODONE 5 mg Immediate Release Tab PO PRN (00:48)
[2017-07-01] MEDS: Albuterol-Ipratrop 3 mg / 0.5 (3 ml) UD INH SCH ×4 (01:10→19:53)
[2017-07-01] MEDS: Budesonide 0.5 mg/2 ml Inhal Susp UD IH SCH ×2 (07:20→19:53)
[2017-07-01] MEDS: Fluticasone-Salmeterol 250-50mcg Diskus INH SCH ×2 (08:04→19:55)
[2017-07-01] MEDS: (Novolin R) Insulin Human Regular 100 units/ml vial SC SCH ×3 (08:06→22:29)
[2017-07-01] MEDS: Enoxaparin 40 mg Syringe SC SCH (09:40)
[2017-07-01] MEDS: guaiFENesin 600 mg ER Tab PO SCH (09:40)
[2017-07-01] MEDS: MethylPREDNISolone 40 mg Vial IV SCH ×2 (09:41→22:25)
[2017-07-01] MEDS: Multivitamin With Minerals Tab PO SCH (09:41)
[2017-07-01] MEDS ORDERED: guaiFENesin 200 mg/10 ml Syrup UD PO PRN (15:42)
--- NOTE | 2017-07-01 19:46 | CP.PCM.PN ---
Subjective - Date & Time of Evaluation Date of Evaluation: 07/01/17 Time of Evaluation: 14:00 - Subjective Subjective: Pt seen and examined, having less cough, less short of breath Objective - Vital Signs/Intake and Output Vital Signs (last 24 hours): Temp Pulse Resp BP Pulse Ox 97.3 F L 86 20 119/81 100 07/01/17 07:00 07/01/17 07:00 07/01/17 07:00 07/01/17 07:00 07/01/17 07:00 - Medications Medications: Current Medications Al Hydrox/Mg Hydrox/Simethicone (Maalox 30 Ml) 30 ml PO Q6H PRN PRN Reason: Indigestion / Heartburn Albuterol/Ipratropium (Duoneb 3 Mg/0.5 Mg (3 Ml) Ud) 3 ml INH RQ6 [facility] Last Admin: 07/01/17 13:30 Dose: 3 ml Alprazolam (Xanax) 0.5 mg PO Q12 [facility] Stop: 07/06/17 10:01 Last Admin: 07/01/17 09:41 Dose: 0.5 mg Budesonide (Pulmicort Respules) 0.5 mg IH RQ12 [facility] Last Admin: 07/01/17 07:20 Dose: 0.5 mg Enoxaparin Sodium (Lovenox) 40 mg SC DAILY [facility] Last Admin: 07/01/17 09:40 Dose: 40 mg Famotidine (Pepcid) 20 mg PO DAILY [facility] Last Admin: 07/01/17 09:40 Dose: 20 mg Guaifenesin (Robitussin) 200 mg PO Q4H PRN PRN Reason: Cough and congestion Home Med (Patient's Own Inhalation Solution) 2 ml INH RQ12 [facility] Insulin Human Regular (Novolin R) 0 unit SC ACHS [facility] PRN Reason: Protocol Last Admin: 07/01/17 17:30 Dose: 3 unit Magnesium Hydroxide (Milk Of Magnesia) 30 ml PO DAILY PRN PRN Reason: Constipation Metformin HCl (Glucophage) 1,000 mg PO BID [facility] Last Admin: 07/01/17 18:23 Dose: 1,000 mg Methylprednisolone (Solu-Medrol) 40 mg IV Q12 [facility] Last Admin: 07/01/17 09:41 Dose: 40 mg Montelukast Sodium (Singulair) 10 mg PO HS [facility] Last Admin: 06/30/17 21:16 Dose: 10 mg Multivitamins/Minerals (Therapeutic-M Tab) 1 tab PO DAILY [facility] Last Admin: 07/01/17 09:41 Dose: 1 tab Oxycodone HCl (Oxycodone Immediate Release Tab) 5 mg PO Q6 PRN PRN Reason: Pain, moderate (4-7) Last Admin: 07/01/17 00:48 Dose: 5 mg Roflumilast (Daliresp) 500 mcg PO DAILY [facility] Last Admin: 07/01/17 09:40 Dose: 500 mcg Fluticasone/Salmeterol (Advair Diskus 250/50) 1 puff INH RBID [facility] Last Admin: 07/01/17 08:04 Dose: 1 puff - Labs Labs: 06/29/17 06:28 06/29/17 06:28 PT 29.9 SECONDS (9.7-12.2) H* 06/29/17 06:28 INR 2.6 06/29/17 06:28 - Constitutional Appears: No Acute Distress - Head Exam Head Exam: ATRAUMATIC, NORMAL INSPECTION, NORMOCEPHALIC - Eye Exam Eye Exam: EOMI, Normal appearance, PERRL Pupil Exam: NORMAL ACCOMODATION, PERRL - Respiratory Exam Respiratory Exam: Decreased Breath Sounds, Rhonchi, Wheezes - Cardiovascular Exam Cardiovascular Exam: REGULAR RHYTHM, +S1, +S2. absent: Murmur - GI/Abdominal Exam GI & Abdominal Exam: Soft, Normal Bowel Sounds. absent: Tenderness Assessment and Plan (1) Acute exacerbation of chronic obstructive pulmonary disease (COPD) Assessment & Plan: on antibiotics nebulizer Status: Chronic (2) Abdominal pain Status: Acute (3) S/P colon resection Status: Acute (4) Allergic rhinitis Status: Chronic (5) Steroid-induced diabetes Status: Chronic (6) Tracheobronchitis Status: Chronic
[2017-07-01] MEDS ORDERED: BROVANA 15 MCG/2 ML INH SCH (20:00)
[2017-07-02] MEDS: Albuterol-Ipratrop 3 mg / 0.5 (3 ml) UD INH SCH ×4 (01:39→19:54)
[2017-07-02] MEDS: Budesonide 0.5 mg/2 ml Inhal Susp UD IH SCH ×2 (07:13→19:54)
[2017-07-02] MEDS: (Novolin R) Insulin Human Regular 100 units/ml vial SC SCH ×4 (08:53→21:12)
[2017-07-02] MEDS: Enoxaparin 40 mg Syringe SC SCH (10:37)
[2017-07-02] MEDS: MethylPREDNISolone 40 mg Vial IV SCH ×2 (10:38→21:16)
[2017-07-02] MEDS: Multivitamin With Minerals Tab PO SCH (10:38)
[2017-07-02] MEDS: Fluticasone-Salmeterol 250-50mcg Diskus INH SCH ×3 (13:27→19:54)
[2017-07-02] MEDS: oxyCODONE 5 mg Immediate Release Tab PO PRN (14:11)
--- NOTE | 2017-07-02 14:12 | CP.PCM.CON ---
History of Present Illness - History of Present Illness History of Present Illness: SURGERY CONSULT NOTE FOR DR. MANZANO 67yo M with PMHx of COPD, anxiety, REYNA, DM presented to the ED on 06/29 for SOB. He was admitted for COPD exacerbation. Patient reports that he uses BIPAP at home. He is currently on steroids. Patient was supposed to have an appointment with Dr. Manzano on but was unable to make it due to being in the hospital. Patient is requesting consult to discuss ileostomy reversal. Patient had Sigmoid and rectosigmoid polyp for which he had low anterior resection w/ loop ileostomy on 03/27/17. 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 Patient states that he occasionally has mild abdominal pain near the ileostomy site. He denies leaking or problems with the ileostomy. Output amount has been normal. He is tolerating regular diet. Patient seen while on BIPAP and states that his SOB has improved. PMHx: COPD, Anemia, Diabetes Mellitus, REYNA, anxiety PSHx: LAR with loop ileostomy, Cataract surgery, cardiac catherization w/o stent placement Social History: former smoker of 2ppd for 40 years, "quit a couple years ago", hasn't drank etoh since 14 years ago, never used illicit drugs Allergies: Tylenol, Fish and shrimp Review of Systems - Review of Systems All systems: reviewed and no additional remarkable complaints except (as per HPI ) Past Patient History - Infectious Disease Hx of Infectious Diseases: None - Past Medical History & Family History Past Medical History?: Yes - Past Social History Smoking Status: Former Smoker - CARDIAC Hx Cardiac Disorders: Yes (Angina) Hx Congestive Heart Failure: Yes Hx Hypercholesterolemia: Yes Hx Hypertension: Yes - PULMONARY Hx Chronic Obstructive Pulmonary Disease (COPD): Yes (Emphysema,) - NEUROLOGICAL HX Cerebrovascular Accident: Yes - HEENT Hx HEENT Problems: Yes Hx Cataracts: Yes (left cataract removed, r cataract) Other/Comment: wears eyeglasses for distance - RENAL Hx Chronic Kidney Disease: Yes Hx Kidney Stones: Yes - ENDOCRINE/METABOLIC Hx Diabetes Mellitus Type 2: Yes (Gout) - HEMATOLOGICAL/ONCOLOGICAL Hx Blood Disorders: Yes Other/Comment: intestinal ademona - INTEGUMENTARY Hx Dermatological Problems: No - MUSCULOSKELETAL/RHEUMATOLOGICAL Hx Falls: Yes (hx on street many years ago) - GASTROINTESTINAL Hx Gastritis: No - PSYCHIATRIC Hx Anxiety: Yes Hx Substance Use: No - SURGICAL HISTORY Hx Surgeries: Yes Hx Cardiac Catheterization: Yes (11/2015) Other/Comment: colon resection with right ileostomy - ANESTHESIA Hx Anesthesia: Yes Hx Anesthesia Reactions: No Hx Malignant Hyperthermia: No Meds Allergies/Adverse Reactions: Allergies Allergy/AdvReac Type Severity Reaction Status Date / Time acetaminophen [From Tylenol] Allergy RASH Verified 06/29/17 06:20 FISH Allergy SWELLING Verified 06/29/17 06:20 shrimp Allergy SHORTNESS Verified 06/29/17 06:20 OF BREATH IV dye Allergy ANAPHYLAXIS Uncoded 05/18/17 21:40 - Medications Medications: Current Medications Al Hydrox/Mg Hydrox/Simethicone (Maalox 30 Ml) 30 ml PO Q6H PRN PRN Reason: Indigestion / Heartburn Albuterol/Ipratropium (Duoneb 3 Mg/0.5 Mg (3 Ml) Ud) 3 ml INH RQ6 [facility] Last Admin: 07/02/17 07:12 Dose: 3 ml Alprazolam (Xanax) 0.5 mg PO Q12 [facility] Stop: 07/06/17 10:01 Last Admin: 07/02/17 10:39 Dose: 0.5 mg Budesonide (Pulmicort Respules) 0.5 mg IH RQ12 [facility] Last Admin: 07/02/17 07:13 Dose: 0.5 mg Enoxaparin Sodium (Lovenox) 40 mg SC DAILY [facility] Last Admin: 07/02/17 10:37 Dose: 40 mg Famotidine (Pepcid) 20 mg PO DAILY [facility] Last Admin: 07/02/17 10:39 Dose: 20 mg Guaifenesin (Robitussin) 200 mg PO Q4H PRN PRN Reason: Cough and congestion Last Admin: 07/01/17 22:31 Dose: 200 mg Home Med (Patient's Own Inhalation Solution) 2 ml INH RQ12 [facility] Insulin Human Regular (Novolin R) 0 unit SC ACHS [facility] PRN Reason: Protocol Last Admin: 07/02/17 12:02 Dose: Not Given Magnesium Hydroxide (Milk Of Magnesia) 30 ml PO DAILY PRN PRN Reason: Constipation Metformin HCl (Glucophage) 1,000 mg PO BID [facility] Last Admin: 07/02/17 10:39 Dose: 1,000 mg Methylprednisolone (Solu-Medrol) 40 mg IV Q12 [facility] Last Admin: 07/02/17 10:38 Dose: 40 mg Montelukast Sodium (Singulair) 10 mg PO HS [facility] Last Admin: 07/01/17 22:25 Dose: 10 mg Multivitamins/Minerals (Therapeutic-M Tab) 1 tab PO DAILY [facility] Last Admin: 07/02/17 10:38 Dose: 1 tab Oxycodone HCl (Oxycodone Immediate Release Tab) 5 mg PO Q6 PRN PRN Reason: Pain, moderate (4-7) Last Admin: 07/01/17 00:48 Dose: 5 mg Roflumilast (Daliresp) 500 mcg PO DAILY [facility] Last Admin: 07/02/17 10:39 Dose: 500 mcg Fluticasone/Salmeterol (Advair Diskus 250/50) 1 puff INH RBID [facility] Last Admin: 07/02/17 13:28 Dose: 1 puff Physical Exam - Constitutional Appears: Non-toxic, No Acute Distress, Chronically Ill - Head Exam Head Exam: ATRAUMATIC, NORMAL INSPECTION - Eye Exam Eye Exam: EOMI, Normal appearance - Respiratory Exam Respiratory Exam: NORMAL BREATHING PATTERN (on BIPAP). absent: Respiratory Distress - Cardiovascular Exam Cardiovascular Exam: Tachycardia (mild), +S1, +S2 - GI/Abdominal Exam GI & Abdominal Exam: Soft. absent: Distended, Firm, Guarding, Hernia, Tenderness Additional comments: Ileostomy with soft dark stool Well healed midline incision scar with scar from former retention sutures - Neurological Exam Neurological exam: Alert, CN II-XII Intact, Oriented x3 - Psychiatric Exam Psychiatric exam: Normal Affect, Normal Mood - Skin Skin Exam: Dry, Normal Color, Warm Results - Vital Signs Recent Vital Signs: Last Vital Signs Temp 97.9 F 07/02/17 07:25 Pulse 101 H 07/02/17 11:44 Resp 20 07/02/17 07:25 BP 113/69 07/02/17 07:25 Pulse Ox 100 07/02/17 07:25 - Labs Result Diagrams: 07/02/17 14:41 07/02/17 14:41 Labs: Laboratory Results - last 24 hr 06/30/17 07/01/17 07/01/17 11:38 16:30 21:43 POC Glucose (mg/dL) 147 H 254 H 86 07/02/17 07/02/17 06:44 11:45 POC Glucose (mg/dL) 157 H 115 H Assessment & Plan - Assessment and Plan (Free Text) Assessment: 67yo M with PMHx of COPD, anxiety, REYNA, DM s/p LAR with loop ileostomy on presented with SOB and was admitted for COPD exacerbation. Surgery consulted for ileostomy management/possible reversal. - Pt prefers ileostomy reversal after Surya - Will plan for ileostomy reversal in August 2017 - Discussed plan with Dr. Emilia Steven PGY-3
[2017-07-02 14:57] LABS: BASO % 0.2 % (0.0-2.0); HEMATOCRIT 33.5 % (35.0-51.0); LYMPH # 1.1 K/uL (1.0-4.3); LYMPH % 8.9 % (20.0-40.0); MEAN CELL VOLUME 71.9 fL (80.0-94.0); MEAN CORPUSCULAR HEMOGLOBIN 22.7 pg (27.0-31.0); MEAN CORPUSCULAR HGB CONC 31.6 g/dL (33.0-37.0); MEAN PLATELET VOLUME 8.1 fL (7.2-11.7); MONO # 0.4 K/uL (0.0-0.8); MONO % 3.3 % (0.0-10.0); PLATELET COUNT 411 K/uL (130-400); WHITE BLOOD COUNT 12.5 K/uL (4.8-10.8)
[2017-07-02 15:35] LABS: NEUTROPHIL 87 % (50-75); TOTAL CELLS COUNTED 100
[2017-07-02 15:56] LABS: ALB/GLOB RATIO 1.6 (1.0-2.1); ALKALINE PHOSPHATASE 148 U/L (38-126); ALT/SGPT 37 U/L (21-72); AST/SGOT 31 U/L (17-59); BILIRUBIN,TOTAL 0.6 mg/dL (0.2-1.3); BLOOD UREA NITROGEN 9 mg/dL (9-20); CALCIUM 9.4 mg/dl (8.6-10.4); CARBON DIOXIDE 27 mmol/L (22-30); CHLORIDE 94 mmol/L (98-107); GFR AFRICAN-AMERICAN > 60; GLUCOSE,RANDOM 191 mg/dL (75-110); POTASSIUM 4.5 mmol/L (3.6-5.2); SODIUM 134 mmol/L (132-148); TOTAL PROTEIN 7.2 g/dL (6.3-8.3)
--- NOTE | 2017-07-02 16:07 | CP.PCM.PN ---
Subjective - Date & Time of Evaluation Date of Evaluation: 07/02/17 Time of Evaluation: 09:30 - Subjective Subjective: patient seen and examined. Breathing much improved Seen by surgery Afebrile Objective - Vital Signs/Intake and Output Vital Signs (last 24 hours): Temp Pulse Resp BP Pulse Ox 97.4 F L 115 H 20 122/76 98 07/02/17 15:39 07/02/17 15:39 07/02/17 15:39 07/02/17 15:39 07/02/17 15:39 Intake and Output: 07/02/17 07/02/17 06:59 18:59 Intake Total 120 480 Output Total 1000 Balance -880 480 - Medications Medications: Current Medications Al Hydrox/Mg Hydrox/Simethicone (Maalox 30 Ml) 30 ml PO Q6H PRN PRN Reason: Indigestion / Heartburn Albuterol/Ipratropium (Duoneb 3 Mg/0.5 Mg (3 Ml) Ud) 3 ml INH RQ6 [facility] Last Admin: 07/02/17 07:12 Dose: 3 ml Alprazolam (Xanax) 0.5 mg PO Q12 [facility] Stop: 07/06/17 10:01 Last Admin: 07/02/17 10:39 Dose: 0.5 mg Budesonide (Pulmicort Respules) 0.5 mg IH RQ12 [facility] Last Admin: 07/02/17 07:13 Dose: 0.5 mg Enoxaparin Sodium (Lovenox) 40 mg SC DAILY [facility] Last Admin: 07/02/17 10:37 Dose: 40 mg Famotidine (Pepcid) 20 mg PO DAILY [facility] Last Admin: 07/02/17 10:39 Dose: 20 mg Guaifenesin (Robitussin) 200 mg PO Q4H PRN PRN Reason: Cough and congestion Last Admin: 07/01/17 22:31 Dose: 200 mg Home Med (Patient's Own Inhalation Solution) 2 ml INH RQ12 [facility] Insulin Human Regular (Novolin R) 0 unit SC ACHS [facility] PRN Reason: Protocol Last Admin: 07/02/17 12:02 Dose: Not Given Magnesium Hydroxide (Milk Of Magnesia) 30 ml PO DAILY PRN PRN Reason: Constipation Metformin HCl (Glucophage) 1,000 mg PO BID [facility] Last Admin: 07/02/17 10:39 Dose: 1,000 mg Methylprednisolone (Solu-Medrol) 40 mg IV Q12 [facility] Last Admin: 07/02/17 10:38 Dose: 40 mg Montelukast Sodium (Singulair) 10 mg PO HS [facility] Last Admin: 07/01/17 22:25 Dose: 10 mg Multivitamins/Minerals (Therapeutic-M Tab) 1 tab PO DAILY [facility] Last Admin: 07/02/17 10:38 Dose: 1 tab Oxycodone HCl (Oxycodone Immediate Release Tab) 5 mg PO Q6 PRN PRN Reason: Pain, moderate (4-7) Last Admin: 07/02/17 14:11 Dose: 5 mg Roflumilast (Daliresp) 500 mcg PO DAILY [facility] Last Admin: 07/02/17 10:39 Dose: 500 mcg Fluticasone/Salmeterol (Advair Diskus 250/50) 1 puff INH RBID [facility] Last Admin: 07/02/17 13:28 Dose: 1 puff - Labs Labs: 07/02/17 14:41 06/29/17 06:28 PT 29.9 SECONDS (9.7-12.2) H* 06/29/17 06:28 INR 2.6 06/29/17 06:28 - Head Exam Head Exam: ATRAUMATIC, NORMOCEPHALIC - Neck Exam Neck Exam: Full ROM - Respiratory Exam Respiratory Exam: Decreased Breath Sounds - Cardiovascular Exam Cardiovascular Exam: REGULAR RHYTHM - GI/Abdominal Exam GI & Abdominal Exam: Soft, Normal Bowel Sounds Assessment and Plan (1) Acute exacerbation of chronic obstructive pulmonary disease (COPD) Assessment & Plan: Stable from pulmonary standpoint Switch to p.o. prednisone Status: Chronic (2) Acute and chronic respiratory failure ([id number]) Status: Acute
--- NOTE | 2017-07-02 23:32 | CP.PCM.PN ---
Subjective - Date & Time of Evaluation Date of Evaluation: 07/02/17 Time of Evaluation: 19:00 - Subjective Subjective: patient seen and examined. Breathing much improved Seen by surgery Afebrile Objective - Vital Signs/Intake and Output Vital Signs (last 24 hours): Temp Pulse Resp BP Pulse Ox 97.4 F L 101 H 20 122/76 98 07/02/17 15:39 07/02/17 16:00 07/02/17 15:39 07/02/17 15:39 07/02/17 15:39 Intake and Output: 07/02/17 07/03/17 18:59 06:59 Intake Total 480 Balance 480 - Medications Medications: Current Medications Al Hydrox/Mg Hydrox/Simethicone (Maalox 30 Ml) 30 ml PO Q6H PRN PRN Reason: Indigestion / Heartburn Albuterol/Ipratropium (Duoneb 3 Mg/0.5 Mg (3 Ml) Ud) 3 ml INH RQ6 [facility] Last Admin: 07/02/17 19:54 Dose: 3 ml Alprazolam (Xanax) 0.5 mg PO Q12 [facility] Stop: 07/06/17 10:01 Last Admin: 07/02/17 21:16 Dose: 0.5 mg Budesonide (Pulmicort Respules) 0.5 mg IH RQ12 [facility] Last Admin: 07/02/17 19:54 Dose: 0.5 mg Enoxaparin Sodium (Lovenox) 40 mg SC DAILY [facility] Last Admin: 07/02/17 10:37 Dose: 40 mg Famotidine (Pepcid) 20 mg PO DAILY [facility] Last Admin: 07/02/17 10:39 Dose: 20 mg Guaifenesin (Robitussin) 200 mg PO Q4H PRN PRN Reason: Cough and congestion Last Admin: 07/01/17 22:31 Dose: 200 mg Home Med (Patient's Own Inhalation Solution) 2 ml INH RQ12 [facility] Insulin Human Regular (Novolin R) 0 unit SC ACHS [facility] PRN Reason: Protocol Last Admin: 07/02/17 21:12 Dose: Not Given Magnesium Hydroxide (Milk Of Magnesia) 30 ml PO DAILY PRN PRN Reason: Constipation Metformin HCl (Glucophage) 1,000 mg PO BID [facility] Last Admin: 07/02/17 17:06 Dose: 1,000 mg Methylprednisolone (Solu-Medrol) 40 mg IV Q12 [facility] Last Admin: 07/02/17 21:16 Dose: 40 mg Montelukast Sodium (Singulair) 10 mg PO HS [facility] Last Admin: 07/02/17 21:16 Dose: 10 mg Multivitamins/Minerals (Therapeutic-M Tab) 1 tab PO DAILY [facility] Last Admin: 07/02/17 10:38 Dose: 1 tab Oxycodone HCl (Oxycodone Immediate Release Tab) 5 mg PO Q6 PRN PRN Reason: Pain, moderate (4-7) Last Admin: 07/02/17 14:11 Dose: 5 mg Roflumilast (Daliresp) 500 mcg PO DAILY [facility] Last Admin: 07/02/17 10:39 Dose: 500 mcg Fluticasone/Salmeterol (Advair Diskus 250/50) 1 puff INH RBID [facility] Last Admin: 07/02/17 19:54 Dose: 1 puff - Labs Labs: 07/02/17 14:41 07/02/17 14:41 PT 29.9 SECONDS (9.7-12.2) H* 06/29/17 06:28 INR 2.6 06/29/17 06:28 Assessment and Plan (1) Acute exacerbation of chronic obstructive pulmonary disease (COPD) Status: Chronic (2) Abdominal pain Status: Acute (3) S/P colon resection Status: Acute (4) Allergic rhinitis Status: Chronic (5) Steroid-induced diabetes Status: Chronic (6) Tracheobronchitis Status: Chronic
[2017-07-03] MEDS: oxyCODONE 5 mg Immediate Release Tab PO PRN (00:37)
[2017-07-03] MEDS: Albuterol-Ipratrop 3 mg / 0.5 (3 ml) UD INH SCH ×3 (01:10→13:23)
[2017-07-03] MEDS: (Novolin R) Insulin Human Regular 100 units/ml vial SC SCH ×2 (07:16→12:46)
[2017-07-03] MEDS: Budesonide 0.5 mg/2 ml Inhal Susp UD IH SCH (07:23)
[2017-07-03 08:22] VITALS: BP 113/66; RESP 18; TEMP 97.5; O2SAT 100
[2017-07-03] MEDS: MethylPREDNISolone 40 mg Vial IV SCH (10:19)
[2017-07-03] MEDS: Multivitamin With Minerals Tab PO SCH (10:19)
[2017-07-03] MEDS: Enoxaparin 40 mg Syringe SC SCH (10:19)
[2017-07-03] MEDS: Fluticasone-Salmeterol 250-50mcg Diskus INH SCH (10:51)
--- NOTE | 2017-07-03 11:42 | CP.PCM.PN ---
Subjective - Date & Time of Evaluation Date of Evaluation: 07/03/17 Time of Evaluation: 11:42 - Subjective Subjective: PATIENT WAS ADMITTED FOR COPD. AAOX3 ON 2 L NASAL CANULLA DENIES ANY CHEST PAIN SOB; NO COUGH OR WHEEZING NOTED AT THIS TIME Objective - Vital Signs/Intake and Output Vital Signs (last 24 hours): Temp Pulse Resp BP Pulse Ox 97.5 F L 92 H 18 113/66 100 07/03/17 07:25 07/03/17 08:05 07/03/17 07:25 07/03/17 07:25 07/03/17 07:25 Intake and Output: 07/03/17 07/03/17 06:59 18:59 Intake Total 120 Output Total 625 Balance -505 - Medications Medications: Current Medications Al Hydrox/Mg Hydrox/Simethicone (Maalox 30 Ml) 30 ml PO Q6H PRN PRN Reason: Indigestion / Heartburn Albuterol/Ipratropium (Duoneb 3 Mg/0.5 Mg (3 Ml) Ud) 3 ml INH RQ6 [facility] Last Admin: 07/03/17 07:23 Dose: 3 ml Alprazolam (Xanax) 0.5 mg PO Q12 [facility] Stop: 07/06/17 10:01 Last Admin: 07/03/17 10:19 Dose: 0.5 mg Budesonide (Pulmicort Respules) 0.5 mg IH RQ12 [facility] Last Admin: 07/03/17 07:23 Dose: 0.5 mg Enoxaparin Sodium (Lovenox) 40 mg SC DAILY [facility] Last Admin: 07/03/17 10:19 Dose: 40 mg Famotidine (Pepcid) 20 mg PO DAILY [facility] Last Admin: 07/03/17 10:19 Dose: 20 mg Guaifenesin (Robitussin) 200 mg PO Q4H PRN PRN Reason: Cough and congestion Last Admin: 07/01/17 22:31 Dose: 200 mg Home Med (Patient's Own Inhalation Solution) 2 ml INH RQ12 [facility] Insulin Human Regular (Novolin R) 0 unit SC ACHS [facility] PRN Reason: Protocol Last Admin: 07/03/17 07:16 Dose: Not Given Magnesium Hydroxide (Milk Of Magnesia) 30 ml PO DAILY PRN PRN Reason: Constipation Metformin HCl (Glucophage) 1,000 mg PO BID [facility] Last Admin: 07/03/17 10:19 Dose: 1,000 mg Methylprednisolone (Solu-Medrol) 40 mg IV Q12 [facility] Last Admin: 07/03/17 10:19 Dose: 40 mg Montelukast Sodium (Singulair) 10 mg PO HS [facility] Last Admin: 07/02/17 21:16 Dose: 10 mg Multivitamins/Minerals (Therapeutic-M Tab) 1 tab PO DAILY [facility] Last Admin: 07/03/17 10:19 Dose: 1 tab Roflumilast (Daliresp) 500 mcg PO DAILY [facility] Last Admin: 07/03/17 10:19 Dose: 500 mcg Fluticasone/Salmeterol (Advair Diskus 250/50) 1 puff INH RBID [facility] Last Admin: 07/03/17 10:51 Dose: 1 puff - Labs Labs: 07/02/17 14:41 07/02/17 14:41 PT 29.9 SECONDS (9.7-12.2) H* 06/29/17 06:28 INR 2.6 06/29/17 06:28 - Respiratory Exam Respiratory Exam: Decreased Breath Sounds - Cardiovascular Exam Cardiovascular Exam: +S1, +S2 - GI/Abdominal Exam Additional comments: RIGHT ILEOSTOMY NOTED NO SIGN OF INFECTION OR OBSTRUCTION NOTED Assessment and Plan - Assessment and Plan (Free Text) Assessment: A/P PATIENT IS SEEN AND EXAMINED AT THE BEDSIDE; LUNG SOUND CLEAR; DISCUSS WITH DR REDDY AND DR ZHANG BOTH CLEAR THE PATIENT FOR DC; FOLLOW UP WITH DR ZHANG IN WEEK AT HIS OFFICE----CALL DR ZHANG OFFICE FOR APPOINTMENT FOLLOW UP WITH DR MANZANO 1 MONTH AT HIS OFFICE ---CALL HIS OFFICE FOR APPOINTMENT PLAN IS TO POSS ILEOSTOMY REVERSAL AFTER INDRA BUT PATIENT NEED TO GAIN MORE WEIGHT FOLLOW UP WITH DR REDDY 1-2 WEEK AT HIS OFFICE ---CALL FOR APPOINTMENT CONTINUE YOUR MEDICATION PER MED RECS NEW RX: PREDNISONE PO TO BE TAPER FOLLOW take 30mg (3 tabs) by mouth daily for 4 days then take 20 mg (2 tabs) by mouth daily for 4 days then take 10 mg (1 tab) by mouth daily for 4 days then take 5 mg (1/2 tab) by mouth daily for [address] ZHANG FOR FURTHER QUESTION CALL DR ZHANG OR DR NATACHA OR GO TO THE NEAREST ER IF SYMPTOMS RETURN OR WORSENING OR COMPLICATION WITH YOUR ILEOSTOMY. DISCUSS WITH PATIENT AND PATIENT IS AGREED WITH THE DISCHARGE PLANNING
[2017-07-03 15:10] VITALS: PULSE 88
--- NOTE | 2017-07-03 23:18 | CP.PCM.DIS ---
Provider - Provider Date of Admission: 06/29/17 06:46 Attending physician: Hal Zhang MD Diagnosis - Discharge Diagnosis (1) Acute exacerbation of chronic obstructive pulmonary disease (COPD) Status: Chronic Priority: High (2) Abdominal pain Status: Acute (3) S/P colon resection Status: Acute (4) Allergic rhinitis Status: Chronic Priority: Medium (5) Steroid-induced diabetes Status: Chronic (6) Tracheobronchitis Status: Chronic Hospital Course - Lab Results Lab Results: Micro Results 06/29/17 11:00 Naris MRSA Culture (Admit) - Final MRSA NOT DETECTED Most Recent Lab Values WBC 12.5 K/uL (4.8-10.8) H 07/02/17 14:41 RBC 4.67 Mil/uL (4.40-5.90) 07/02/17 14:41 Hgb 10.6 g/dL (12.0-18.0) L 07/02/17 14:41 Hct 33.5 % (35.0-51.0) L 07/02/17 14:41 MCV 71.9 fL (80.0-94.0) L 07/02/17 14:41 MCH 22.7 pg (27.0-31.0) L 07/02/17 14:41 MCHC 31.6 g/dL (33.0-37.0) L 07/02/17 14:41 RDW 16.0 % (11.5-14.5) H 07/02/17 14:41 Plt Count 411 K/uL (130-400) H 07/02/17 14:41 MPV 8.1 fL (7.2-11.7) 07/02/17 14:41 Neut % (Auto) 87.6 % (50.0-75.0) H 07/02/17 14:41 Lymph % (Auto) 8.9 % (20.0-40.0) L 07/02/17 14:41 [place] % (Auto) 3.3 % (0.0-10.0) 07/02/17 14:41 Eos % (Auto) 0.0 % (0.0-4.0) 07/02/17 14:41 Baso % (Auto) 0.2 % (0.0-2.0) 07/02/17 14:41 Neut # 10.9 K/uL (1.8-7.0) H 07/02/17 14:41 Lymph # 1.1 K/uL (1.0-4.3) 07/02/17 14:41 [place] # 0.4 K/uL (0.0-0.8) 07/02/17 14:41 Eos # 0.0 K/uL (0.0-0.7) 07/02/17 14:41 Baso # 0.0 K/uL (0.0-0.2) 07/02/17 14:41 Neutrophils % (Manual) 87 % (50-75) H 07/02/17 14:41 Lymphocytes % (Manual) 8 % (20-40) L 07/02/17 14:41 Monocytes % (Manual) 5 % (0-10) 07/02/17 14:41 Platelet Estimate Normal (NORMAL) 07/02/17 14:41 Hypochromasia (manual) Slight 07/02/17 14:41 Poikilocytosis (manual Slight 07/02/17 14:41 Anisocytosis (manual) Slight 07/02/17 14:41 Target Cells Slight 07/02/17 14:41 Tear Drop Cells Slight 07/02/17 14:41 Ovalocytes Slight 07/02/17 14:41 PT 29.9 SECONDS (9.7-12.2) H* 06/29/17 06:28 INR 2.6 06/29/17 06:28 pO2 35 mm/Hg (30-55) 06/29/17 06:30 VBG pH 7.31 (7.32-7.43) L 06/29/17 06:30 VBG pCO2 64 mmHg (40-60) H 06/29/17 06:30 VBG HCO3 27.1 mmol/L 06/29/17 06:30 VBG Total CO2 34.2 mmol/L (22-28) H 06/29/17 06:30 VBG O2 Sat (Calc) 66.9 % (40-65) H 06/29/17 06:30 VBG Base Excess 4.0 mmol/L (0.0-2.0) H 06/29/17 06:30 VBG Potassium 3.9 mmol/L (3.6-5.2) 06/29/17 06:30 Sodium 142.0 mmol/l (132-148) 06/29/17 06:30 Chloride 109.0 mmol/L (98-107) H 06/29/17 06:30 Glucose 118 mg/dl (75-110) H 06/29/17 06:30 Lactate 2.8 mmol/L (0.7-2.1) H 06/29/17 06:30 Sodium 134 mmol/L (132-148) 07/02/17 14:41 Potassium 4.5 mmol/L (3.6-5.2) 07/02/17 14:41 Chloride 94 mmol/L (98-107) L 07/02/17 14:41 Carbon Dioxide 27 mmol/L (22-30) 07/02/17 14:41 Anion Gap 18 (-) 07/02/17 14:41 BUN 9 mg/dL (9-20) 07/02/17 14:41 Creatinine 0.7 mg/dL (0.8-1.5) L 07/02/17 14:41 Est GFR ( Amer) > 60 07/02/17 14:41 Est GFR (Non-Af Amer) > 60 07/02/17 14:41 POC Glucose (mg/dL) 149 mg/dL (65-110) H 07/03/17 12:07 Random Glucose 191 mg/dL (75-110) H 07/02/17 14:41 Calcium 9.4 mg/dl (8.6-10.4) 07/02/17 14:41 Total Bilirubin 0.6 mg/dL (0.2-1.3) 07/02/17 14:41 AST 31 U/L (17-59) 07/02/17 14:41 ALT 37 U/L (21-72) 07/02/17 14:41 Alkaline Phosphatase 148 U/L (38-126) H 07/02/17 14:41 Troponin I < 0.0120 ng/mL (0.00-0.120) 06/29/17 06:28 NT-Pro-B Natriuret Pep 31.1 pg/mL (0-900) 06/29/17 06:28 Total Protein 7.2 g/dL (6.3-8.3) 07/02/17 14:41 Albumin 4.5 g/dL (3.5-5.0) 07/02/17 14:41 Globulin 2.8 gm/dL (2.2-3.9) 07/02/17 14:41 Albumin/Globulin Ratio 1.6 (1.0-2.1) 07/02/17 14:41 Venous Blood Potassium 3.9 mmol/L (3.6-5.2) 06/29/17 06:30 Urine Color Yellow (YELLOW) 06/29/17 14:32 Urine Clarity Clear (Clear) 06/29/17 14:32 Urine pH 5.0 (5.0-8.0) 06/29/17 14:32 Ur Specific [place] 1.023 (1.003-1.030) 06/29/17 14:32 Urine Protein Negative mg/dL (NEGATIVE) 06/29/17 14:32 Urine Glucose (UA) Normal mg/dL (Normal) 06/29/17 14:32 Urine Ketones Trace mg/dL (NEGATIVE) 06/29/17 14:32 Urine Blood Negative (NEGATIVE) 06/29/17 14:32 Urine Nitrate Negative (NEGATIVE) 06/29/17 14:32 Urine Bilirubin Negative (NEGATIVE) 06/29/17 14:32 Urine Urobilinogen Normal mg/dL (0.2-1.0) 06/29/17 14:32 Ur Leukocyte Esterase Neg Eulalio/uL (Negative) 06/29/17 14:32 Urine WBC (Auto) 1 /hpf (0-5) 06/29/17 14:32 Urine RBC (Auto) < 1 /hpf (0-3) 06/29/17 14:32 - Hospital Course Hospital Course: A/P PATIENT IS SEEN AND EXAMINED AT THE BEDSIDE; LUNG SOUND CLEAR; FOLLOW UP WITH ME IN WEEK AT HIS OFFICE----CALL MY OFFICE FOR APPOINTMENT FOLLOW UP WITH DR MANZANO 1 MONTH AT HIS OFFICE ---CALL HIS OFFICE FOR APPOINTMENT PLAN IS TO POSS ILEOSTOMY REVERSAL AFTER INDRA BUT PATIENT NEED TO GAIN MORE WEIGHT FOLLOW UP WITH DR NUNO 1-2 WEEK AT HIS OFFICE ---CALL FOR APPOINTMENT CONTINUE YOUR MEDICATION PER MED RECS NEW RX: PREDNISONE PO TO BE TAPER FOLLOW take 30mg (3 tabs) by mouth daily for 4 days then take 20 mg (2 tabs) by mouth daily for 4 days then take 10 mg (1 tab) by mouth daily for 4 days then take 5 mg (1/2 tab) by mouth daily for 2 days CALL MY OFFICE OR DR MANZANO OR GO TO THE NEAREST ER IF SYMPTOMS RETURN OR WORSENING OR COMPLICATION WITH YOUR ILEOSTOMY. DISCUSS WITH PATIENT AND PATIENT IS AGREED WITH THE DISCHARGE PLANNING Discharge Exam - Head Exam Head Exam: ATRAUMATIC, NORMAL INSPECTION Discharge Plan - Discharge Medications Prescriptions: predniSONE [predniSONE Tab] 10 mg PO DAILY #25 tab predniSONE [predniSONE Tab] 5 mg PO DAILY #30 tab - Follow Up Plan Condition: GUARDED Disposition: HOME/ ROUTINE Instructions: Prednisone (By mouth), Warfarin (By mouth), Heart Failure (DC), Ileostomy Care (DC), Heart Healthy Diet (DC), COPD (Chronic Obstructive Pulmonary Disease) (DC), Ileostomy Creation (DC) Additional Instructions: FOLLOW UP WITH DR ZHANG IN WEEK AT HIS OFFICE----CALL DR ZHANG OFFICE FOR APPOINTMENT FOLLOW UP WITH DR MANZANO 1 MONTH AT HIS OFFICE ---CALL HIS OFFICE FOR APPOINTMENT PLAN IS TO POSS ILEOSTOMY REVERSAL AFTER SENATOBIA BUT PATIENT NEED TO GAIN MORE WEIGHT FOLLOW UP WITH DR NUNO 1-2 WEEK AT HIS OFFICE ---CALL FOR APPOINTMENT CONTINUE YOUR MEDICATION PER MED RECS NEW RX: PREDNISONE PO TO BE TAPER FOLLOW take 30mg (3 tabs) by mouth daily for 4 days then take 20 mg (2 tabs) by mouth daily for 4 days then take 10 mg (1 tab) by mouth daily for 4 days then take 5 mg (1/2 tab) by mouth daily for [address] ZHANG FOR FURTHER QUESTION CALL DR ZHANG OR DR MANZANO OR GO TO THE NEAREST ER IF SYMPTOMS RETURN OR WORSENING OR COMPLICATION WITH YOUR ILEOSTOMY. Referrals: Ralf Nuno MD [Staff Provider] - Hal Zhang MD [Staff Provider] - Lucho Manzano Jr., MD [Staff Provider] -
== END 2017-07-03 15:07 | disposition home health service (06) | DRG 190 ==
LOC: C.ER 06:14 → C.9I 06:46 → C.6T 22:39
PROVIDERS: ADMIT Internal Medicine; ATTEND Internal Medicine
PROC: 5A09457 Assistance with Respiratory Ventilation, 24-96 Consecutive Hours, Continuous Positive Airway Pressure (ICD-10-PCS; principal; 2017-06-29)
DX: J44.1 Chronic obstructive pulmonary disease with (acute) exacerbation (principal); J96.20 Acute and chronic respiratory failure, unspecified whether with hypoxia or hypercapnia; I13.0 Hypertensive heart and chronic kidney disease with heart failure and stage 1 through stage 4 chronic kidney disease, or unspecified chronic kidney disease; I50.9 Heart failure, unspecified; E09.9 Drug or chemical induced diabetes mellitus without complications; G47.33 Obstructive sleep apnea (adult) (pediatric); J40 Bronchitis, not specified as acute or chronic; N18.9 Chronic kidney disease, unspecified; E78.00 Pure hypercholesterolemia, unspecified; M10.9 Gout, unspecified; Z93.2 Ileostomy status; T38.0X5S Adverse effect of glucocorticoids and synthetic analogues, sequela; Z86.73 Personal history of transient ischemic attack (TIA), and cerebral infarction without residual deficits; Z87.442 Personal history of urinary calculi; Z87.01 Personal history of pneumonia (recurrent); Z87.891 Personal history of nicotine dependence; Z90.49 Acquired absence of other specified parts of digestive tract; Z98.41 Cataract extraction status, right eye

== ENCOUNTER 2017-07-15 21:31 | Inpatient (IN) | payer MEDICARE, BC ==
[2017-07-15 21:31] VITALS: BMI 27.3
--- NOTE | 2017-07-15 21:39 | C.PDOC ---
History Of Present Illness 67 year old male with a Hx of COPD brought in by EMS for a complaint of SOB and chest tightness. Patient was recently discharged from the hospital on 07/03/17 for COPD and started on augmentin. Patient is on multiple inhalers, steroids, and uses bipap in the morning and at night; he used his treatments today with no improvement. On arrival, patient is coughing up phlegm and appears SOB but is not febrile. Denies nausea or vomiting. Time Seen by Provider: 07/15/17 21:35 Chief Complaint (Nursing): Shortness Of Breath History Per: Patient History/Exam Limitations: no limitations Current Symptoms Are (Timing): Still Present Current Respiratory Medications: Other (Inhalers, Steroids, Bipap) Associated Symptoms: Other (SOB, Chest tightness). denies: Fever Reports Recently: Hospitalized Recent travel outside of the [place]: No Past Medical History Reviewed: Historical Data, Nursing Documentation, Vital Signs Vital Signs: Last Vital Signs Temp 98.7 F 07/15/17 21:36 Pulse 122 H 07/15/17 22:24 Resp 20 07/15/17 22:24 BP 118/62 07/15/17 22:24 Pulse Ox 99 07/15/17 22:24 - Medical History PMH: Anxiety, Arthritis, Asthma, Bronchitis, CHF, COPD (Emphysema,), Diabetes, Emphysema, HTN, Hypercholesterolemia, Kidney Stones, Pneumonia, Chronic Kidney Disease, Sleep Apnea - [facility] Procedures ASSISTANCE WITH RESPIRATORY VENTILATION, 24-96 HRS, CPAP (06/29/17) ASSISTANCE WITH RESPIRATORY VENTILATION, <24 HRS, CPAP (07/08/16) ASSISTANCE WITH RESPIRATORY VENTILATION, >96 HRS, CPAP (05/08/17) CONTINUOUS INVASIVE MECHANICAL VENTILATION <96 CONSEC HRS (11/29/14) DILATION OF RIGHT URETER WITH INTRALUMINAL DEVICE, ENDO (03/20/17) EXCISION OF SIGMOID COLON, ENDO, DIAGN (03/20/17) EXCISION OF STOMACH, ENDO, DIAGN (03/20/17) EXCISION OF TRANSVERSE COLON, ENDO, DIAGN (03/20/17) INFLUENZA VACCINATION (06/02/14) INSERT ENDOTRACHEAL TUBE (11/29/14) LARYGNOSCOPY AND OTH TRACHEOSCOPY (04/18/15) MEASURE OF CARDIAC SAMPL & PRESSURE, L HEART, PERC APPROACH (12/01/15) NON-INVASIVE MECHANICAL VENTILATION (04/18/15) RESECTION OF SIGMOID COLON, OPEN APPROACH (03/20/17) RESPIRATORY VENTILATION, GREATER THAN 96 CONSECUTIVE HOURS (03/20/17) Family History: States: Unknown Family Hx - Social History Hx Tobacco Use: Yes (8 years ppd smoker. quit 1.5 years ago) Hx Alcohol Use: Yes Hx Substance Use: No - Immunization History Hx Tetanus Toxoid Vaccination: Yes Hx Influenza Vaccination: No Hx Pneumococcal Vaccination: Yes (12/01/2014) Review Of Systems Constitutional: Negative for: Fever, Chills Cardiovascular: Negative for: Palpitations Respiratory: Positive for: Cough, Shortness of Breath, Sputum, Other (Chest Tightness) Gastrointestinal: Negative for: Nausea, Vomiting Physical Exam - Physical Exam Appears: Other (Tachypneic) Skin: Normal Color, Warm, Dry Head: Atraumatic, Normacephalic Eye(s): bilateral: Normal Inspection Oral Mucosa: Moist Neck: Normal, Supple Chest: Symmetrical, No Tenderness Cardiovascular: Rhythm Regular (Tachycardic) Respiratory: Decreased Breath Sounds Gastrointestinal/Abdominal: Soft, No Tenderness Neurological/Psych: Oriented x3, Normal Speech, Other (No focal deficits) ED Course And Treatment - Laboratory Results Result Diagrams: 07/15/17 21:55 07/15/17 21:55 Lab Interpretation: Abnormal (WBC 12.8 with normal diff. HCO3 32) - Radiology CXR: Interpreted by Me CXR Interpretation: Yes: No Acute Disease Progress Note: EKG, blood work, and CXR ordered. Solumedrol administered. Reevaluation Time: 23:06 Reassessment Condition: Improved (Patient more comfortable after Cuoneb and IV solumedrol.) - Physician Consult Information Time Consulting Physician Contacted: 23:07 Physician Contacted: Hal Garcia Outcome Of Conversation: Patient to be admitted for exacerbation of COPD Disposition - Disposition Disposition: HOSPITALIZED Disposition Time: 23:09 Condition: IMPROVED - Clinical Impression Clinical Impression: COPD exacerbation - Scribe Statement The provider has reviewed the documentation as recorded by the Scribilya Hackett All medical record entries made by the Scribe were at my direction and personally dictated by me. I have reviewed the chart and agree that the record accurately reflects my personal performance of the history, physical exam, medical decision making, and the department course for this patient. I have also personally directed, reviewed, and agree with the discharge instructions and disposition.
[2017-07-15 22:00] LABS: BASO # 0.2 K/uL (0.0-0.2); BASO % 1.2 % (0.0-2.0); EOS # 0.5 K/uL (0.0-0.7); EOS % 3.6 % (0.0-4.0); HEMATOCRIT 32.6 % (35.0-51.0); LYMPH # 2.8 K/uL (1.0-4.3); LYMPH % 21.9 % (20.0-40.0); MEAN CELL VOLUME 70.2 fL (80.0-94.0); MEAN CORPUSCULAR HGB CONC 31.3 g/dL (33.0-37.0); MEAN PLATELET VOLUME 7.7 fL (7.2-11.7); MONO # 0.8 K/uL (0.0-0.8); MONO % 6.3 % (0.0-10.0); RED CELL DISTRIBUTION WIDTH 16.7 % (11.5-14.5); WHITE BLOOD COUNT 12.8 K/uL (4.8-10.8)
[2017-07-15 22:20] LABS: ALB/GLOB RATIO 1.1 (1.0-2.1); ALKALINE PHOSPHATASE 133 U/L (38-126); ALT/SGPT 66 U/L (21-72); AST/SGOT 41 U/L (17-59); BILIRUBIN,TOTAL 0.3 mg/dL (0.2-1.3); BLOOD UREA NITROGEN 7 mg/dL (9-20); CALCIUM 8.7 mg/dl (8.6-10.4); CARBON DIOXIDE 32 mmol/L (22-30); CHLORIDE 99 mmol/L (98-107); GFR AFRICAN-AMERICAN > 60; GLUCOSE,RANDOM 110 mg/dL (75-110); MAGNESIUM 1.8 mg/dL (1.6-2.3); POTASSIUM 4.1 mmol/L (3.6-5.2); SODIUM 140 mmol/L (132-148); TOTAL PROTEIN 7.9 g/dL (6.3-8.3)
[2017-07-15 22:29] LABS: INR 1.1
[2017-07-15] MEDS ORDERED: Aluminum Hydroxide/Magnesium Hydroxide Susp (30 mL) PO PRN (23:04)
[2017-07-15] MEDS ORDERED: oxyCODONE 5 mg Immediate Release Tab PO PRN (23:04)
[2017-07-15] MEDS ORDERED: Magnesium Hydroxide Susp 30 ml UD PO PRN (23:04)
[2017-07-16] MEDS: Albuterol-Ipratrop 3 mg / 0.5 (3 ml) UD INH SCH ×4 (01:21→19:12)
[2017-07-16] MEDS ORDERED: Budesonide 0.5 mg/2 ml Inhal Susp UD IH SCH (08:00)
[2017-07-16] MEDS: (Novolog) Insulin Aspart, Recombinant 100 u/ml 10 ml vial SC SCH ×4 (08:27→22:07)
--- NOTE | 2017-07-16 09:01 | RAD ---
PROCEDURE: CHEST RADIOGRAPH, 1 VIEW HISTORY: Shortness of breath COMPARISON: 06/29/2017 FINDINGS: LUNGS: Bibasilar breast and nipple shadows. Biapical pleural thickening with upper lobe granulomatous changes. No gross infiltrate or effusion. Mild nodularity at the lateral aspect of the right mid lung zone likely represents overlapping wires. PLEURA: No pneumothorax or pleural fluid seen. CARDIOVASCULAR: Normal. OSSEOUS STRUCTURES: No significant abnormalities. VISUALIZED UPPER ABDOMEN: Normal. OTHER FINDINGS: None. IMPRESSION: Bibasilar breast and nipple shadows. Biapical pleural thickening with upper lobe granulomatous changes. No gross infiltrate or effusion. Mild nodularity at the lateral aspect of the right mid lung zone likely represents overlapping wires.
[2017-07-16] MEDS ORDERED: guaiFENesin 600 mg ER Tab PO SCH ×2 (10:00→18:00)
[2017-07-16] MEDS ORDERED: Home Med 1 UNIT (Arformoterol [Brovana] 15 MCG) IH SCH (10:00)
[2017-07-16] MEDS: Fluticasone-Salmeterol 250-50mcg Diskus INH SCH ×2 (10:35→19:11)
[2017-07-16] MEDS: Multiple Vitamins Tab PO SCH (10:35)
[2017-07-16] MEDS: MethylPREDNISolone 40 mg Vial IV SCH ×2 (10:36→22:08)
[2017-07-16] MEDS: Enoxaparin 30 mg Syringe SC SCH (10:36)
--- NOTE | 2017-07-16 17:03 | CP.PCM.CON ---
History of Present Illness - History of Present Illness History of Present Illness: reason for consultation: shortness of breath 67-year-old male with COPD presented to emergency room complaining of shortness of breath and chest tightness. Patient with several admissions in the past, on multiple medications for COPD including trilogy for chronic respiratory failure Review of Systems - Review of Systems All systems: reviewed and no additional remarkable complaints except (shortness of breath and chest tightness) Past Patient History - Infectious Disease Hx of Infectious Diseases: None - Past Medical History & Family History Past Medical History?: Yes - Past Social History Smoking Status: Former Smoker - CARDIAC Hx Cardiac Disorders: Yes Hx Angina: Yes Hx Cardia Arrhythmia: (tachycardic) Hx Congestive Heart Failure: Yes Hx Hypercholesterolemia: Yes Hx Hypertension: Yes - PULMONARY Hx Respiratory Disorders: Yes Hx Asthma: Yes Hx Bronchitis: Yes Hx Chronic Obstructive Pulmonary Disease (COPD): Yes (Emphysema) Hx Emphysema: Yes Hx Pneumonia: Yes Hx Sleep Apnea: Yes - NEUROLOGICAL Hx Neurological Disorder: Yes HX Cerebrovascular Accident: Yes - HEENT Hx HEENT Problems: Yes Hx Cataracts: Yes (left cataract removed, r cataract) Other/Comment: wears eyeglasses for distance - RENAL Hx Chronic Kidney Disease: Yes Hx Kidney Stones: Yes - ENDOCRINE/METABOLIC Hx Endocrine Disorders: Yes Hx Diabetes Mellitus Type 2: Yes - HEMATOLOGICAL/ONCOLOGICAL Hx Blood Disorders: Yes Other/Comment: intestinal adenoma - INTEGUMENTARY Hx Dermatological Problems: No - MUSCULOSKELETAL/RHEUMATOLOGICAL Hx Falls: No - GASTROINTESTINAL Hx Gastrointestinal Disorders: No - GENITOURINARY/GYNECOLOGICAL Hx Genitourinary Disorders: No - PSYCHIATRIC Hx Substance Use: No - SURGICAL HISTORY Hx Surgeries: Yes Hx Cardiac Catheterization: Yes (11/2015) Other/Comment: colon resection with right ileostomy - ANESTHESIA Hx Anesthesia: Yes Hx Anesthesia Reactions: No Hx Malignant Hyperthermia: No Meds Allergies/Adverse Reactions: Allergies Allergy/AdvReac Type Severity Reaction Status Date / Time acetaminophen [From Tylenol] Allergy RASH Verified 07/15/17 21:34 FISH Allergy SWELLING Verified 07/15/17 21:34 shrimp Allergy SHORTNESS Verified 07/15/17 21:34 OF BREATH IV dye Allergy Severe ANAPHYLAXIS Uncoded 07/15/17 21:34 - Medications Medications: Current Medications Al Hydrox/Mg Hydrox/Simethicone (Maalox 30 Ml) 30 ml PO Q6H PRN PRN Reason: Indigestion / Heartburn Albuterol/Ipratropium (Duoneb 3 Mg/0.5 Mg (3 Ml) Ud) 3 ml INH RQ6 [facility] Last Admin: 07/16/17 13:34 Dose: 3 ml Alprazolam (Xanax) 0.5 mg PO Q12 [facility] Stop: 07/23/17 10:01 Last Admin: 07/16/17 10:49 Dose: 0.5 mg Enoxaparin Sodium (Lovenox) 40 mg SC DAILY [facility] Last Admin: 07/16/17 10:36 Dose: 40 mg Guaifenesin (Mucinex La) 600 mg PO DAILY [facility] Home Med (Home Med) 1 unit INH Q12 [facility] Insulin Aspart (Novolog) 0 unit SC ACHS [facility] PRN Reason: Protocol Last Admin: 07/16/17 12:10 Dose: 2 unit Magnesium Hydroxide (Milk Of Magnesia) 30 ml PO DAILY PRN PRN Reason: Constipation Metformin HCl (Glucophage) 1,000 mg PO BID [facility] Last Admin: 07/16/17 10:35 Dose: 1,000 mg Methylprednisolone (Solu-Medrol) 40 mg IV Q12 [facility] Last Admin: 07/16/17 10:36 Dose: 40 mg Montelukast Sodium (Singulair) 10 mg PO HS [facility] Multivitamins (Hexavitamin) 1 tab PO DAILY [facility] Last Admin: 07/16/17 10:35 Dose: 1 tab Oxycodone HCl (Oxycodone Immediate Release Tab) 5 mg PO Q6 PRN PRN Reason: Pain, moderate (4-7) Roflumilast (Daliresp) 500 mcg PO DAILY [facility] Last Admin: 07/16/17 10:49 Dose: 500 mcg Fluticasone/Salmeterol (Advair Diskus 250/50) 1 puff INH RBID [facility] Last Admin: 07/16/17 10:35 Dose: Not Given Physical Exam - Head Exam Head Exam: ATRAUMATIC, NORMOCEPHALIC - ENT Exam ENT Exam: Mucous Membranes Moist - Neck Exam Neck exam: Positive for: Normal Inspection - Respiratory Exam Respiratory Exam: Decreased Breath Sounds - Cardiovascular Exam Cardiovascular Exam: REGULAR RHYTHM - GI/Abdominal Exam GI & Abdominal Exam: Normal Bowel Sounds, Soft - Extremities Exam Extremities exam: Positive for: normal inspection Results - Vital Signs Recent Vital Signs: Last Vital Signs Temp 98.1 F 07/16/17 15:00 Pulse 112 H 07/16/17 15:00 Resp 20 07/16/17 15:00 BP 105/62 07/16/17 15:00 Pulse Ox 98 07/16/17 15:00 - Labs Result Diagrams: 07/15/17 21:55 07/15/17 21:55 Labs: Laboratory Results - last 24 hr 07/15/17 07/15/17 07/15/17 21:37 21:55 21:55 WBC 12.8 H RBC 4.65 Hgb 10.2 L Hct 32.6 L MCV 70.2 L MCH 22.0 L MCHC 31.3 L RDW 16.7 H Plt Count 302 D MPV 7.7 Neut % (Auto) 67.0 Lymph % (Auto) 21.9 [place] % (Auto) 6.3 Eos % (Auto) 3.6 Baso % (Auto) 1.2 Neut # 8.6 H Lymph # 2.8 [place] # 0.8 Eos # 0.5 Baso # 0.2 PT INR Sodium 140 Potassium 4.1 Chloride 99 Carbon Dioxide 32 H Anion Gap 13 BUN 7 L Creatinine 0.7 L Est GFR ( Amer) > 60 Est GFR (Non-Af Amer) > 60 POC Glucose (mg/dL) 100 Random Glucose 110 Calcium 8.7 Magnesium 1.8 Total Bilirubin 0.3 AST 41 ALT 66 Alkaline Phosphatase 133 H Troponin I < 0.0120 NT-Pro-B Natriuret Pep 31.7 Total Protein 7.9 Albumin 4.2 Globulin 3.8 Albumin/Globulin Ratio 1.1 07/15/17 07/16/17 07/16/17 22:17 02:00 07:15 WBC RBC Hgb Hct MCV MCH MCHC RDW Plt Count MPV Neut % (Auto) Lymph % (Auto) [place] % (Auto) Eos % (Auto) Baso % (Auto) Neut # Lymph # [place] # Eos # Baso # PT 12.5 H INR 1.1 Sodium Potassium Chloride Carbon Dioxide Anion Gap BUN Creatinine Est GFR ( Amer) Est GFR (Non-Af Amer) POC Glucose (mg/dL) 249 H 272 H Random Glucose Calcium Magnesium Total Bilirubin AST ALT Alkaline Phosphatase Troponin I NT-Pro-B Natriuret Pep Total Protein Albumin Globulin Albumin/Globulin Ratio 07/16/17 07/16/17 10:46 16:40 WBC RBC Hgb Hct MCV MCH MCHC RDW Plt Count MPV Neut % (Auto) Lymph % (Auto) [place] % (Auto) Eos % (Auto) Baso % (Auto) Neut # Lymph # [place] # Eos # Baso # PT INR Sodium Potassium Chloride Carbon Dioxide Anion Gap BUN Creatinine Est GFR ( Amer) Est GFR (Non-Af Amer) POC Glucose (mg/dL) 222 H 264 H Random Glucose Calcium Magnesium Total Bilirubin AST ALT Alkaline Phosphatase Troponin I NT-Pro-B Natriuret Pep Total Protein Albumin Globulin Albumin/Globulin Ratio Assessment & Plan (1) COPD exacerbation Status: Acute Priority: Medium Comment: continue IV steroids, nebulizer treatment and BiPAP. Continue present medication (2) Chronic respiratory failure Status: Acute
[2017-07-16] MEDS ORDERED: BROVANA 15 MCG INH SCH (22:00)
[2017-07-17] MEDS: Albuterol-Ipratrop 3 mg / 0.5 (3 ml) UD INH SCH ×4 (01:16→20:49)
[2017-07-17] MEDS: Fluticasone-Salmeterol 250-50mcg Diskus INH SCH (07:37)
[2017-07-17] MEDS: (Novolog) Insulin Aspart, Recombinant 100 u/ml 10 ml vial SC SCH ×4 (08:16→21:26)
[2017-07-17] MEDS: MethylPREDNISolone 40 mg Vial IV SCH ×2 (11:07→21:16)
[2017-07-17] MEDS: Multiple Vitamins Tab PO SCH (11:08)
[2017-07-17] MEDS: Enoxaparin 30 mg Syringe SC SCH (11:09)
[2017-07-17] MEDS: guaiFENesin 600 mg ER Tab PO SCH (11:09)
--- NOTE | 2017-07-17 12:04 | CP.PCM.PN ---
Subjective - Date & Time of Evaluation Date of Evaluation: 07/17/17 - Subjective Subjective: Patient seen and examined at bedside. Patient sitting comfortably. Patient reports that shortness of breath is better with rest but worse with exertion. Still complaining of chest tightness and a non-productive cough. Patient denies fever, chills, headache, chest pain, abdominal pain, nausea, vomiting, diarrhea and dysuria. Objective - Vital Signs/Intake and Output Vital Signs (last 24 hours): Temp Pulse Resp BP Pulse Ox 98.7 F 91 H 20 117/67 100 07/17/17 08:00 07/17/17 08:00 07/17/17 08:00 07/17/17 08:00 07/17/17 08:00 Intake and Output: 07/17/17 07/17/17 06:59 18:59 Intake Total 700 Output Total 550 Balance 150 - Medications Medications: Current Medications Al Hydrox/Mg Hydrox/Simethicone (Maalox 30 Ml) 30 ml PO Q6H PRN PRN Reason: Indigestion / Heartburn Albuterol/Ipratropium (Duoneb 3 Mg/0.5 Mg (3 Ml) Ud) 3 ml INH RQ6 [facility] Last Admin: 07/17/17 07:36 Dose: 3 ml Alprazolam (Xanax) 0.5 mg PO Q12 [facility] Stop: 07/23/17 10:01 Last Admin: 07/17/17 11:08 Dose: 0.5 mg Enoxaparin Sodium (Lovenox) 40 mg SC DAILY [facility] Last Admin: 07/17/17 11:09 Dose: 40 mg Guaifenesin (Mucinex La) 600 mg PO DAILY [facility] Last Admin: 07/17/17 11:09 Dose: 600 mg Home Med (Home Med) 1 unit INH Q12 [facility] Insulin Aspart (Novolog) 0 unit SC ACHS [facility] PRN Reason: Protocol Last Admin: 07/17/17 08:16 Dose: 1 unit Magnesium Hydroxide (Milk Of Magnesia) 30 ml PO DAILY PRN PRN Reason: Constipation Metformin HCl (Glucophage) 1,000 mg PO BID [facility] Last Admin: 07/17/17 11:08 Dose: 1,000 mg Methylprednisolone (Solu-Medrol) 40 mg IV Q12 [facility] Last Admin: 07/17/17 11:07 Dose: 40 mg Montelukast Sodium (Singulair) 10 mg PO HS [facility] Last Admin: 07/16/17 22:07 Dose: 10 mg Multivitamins (Hexavitamin) 1 tab PO DAILY [facility] Last Admin: 07/17/17 11:08 Dose: 1 tab Oxycodone HCl (Oxycodone Immediate Release Tab) 5 mg PO Q6 PRN PRN Reason: Pain, moderate (4-7) Roflumilast (Daliresp) 500 mcg PO DAILY [facility] Last Admin: 07/17/17 11:17 Dose: 500 mcg Fluticasone/Salmeterol (Advair Diskus 250/50) 1 puff INH RQ12 [facility] - Labs Labs: 07/15/17 21:55 07/15/17 21:55 PT 12.5 SECONDS (9.7-12.2) H 07/15/17 22:17 INR 1.1 07/15/17 22:17 Assessment and Plan (1) COPD exacerbation Status: Acute (2) Chronic respiratory failure Status: Acute
[2017-07-17 16:40] LABS: BASO % 0.3 % (0.0-2.0); EOS % 0.1 % (0.0-4.0); HEMATOCRIT 31.2 % (35.0-51.0); LYMPH # 0.6 K/uL (1.0-4.3); MEAN CORPUSCULAR HEMOGLOBIN 21.6 pg (27.0-31.0); MEAN CORPUSCULAR HGB CONC 30.9 g/dL (33.0-37.0); MEAN PLATELET VOLUME 7.7 fL (7.2-11.7); MONO # 0.4 K/uL (0.0-0.8); MONO % 2.6 % (0.0-10.0); PLATELET COUNT 312 K/uL (130-400); RED CELL DISTRIBUTION WIDTH 16.8 % (11.5-14.5); WHITE BLOOD COUNT 15.1 K/uL (4.8-10.8)
[2017-07-17 17:07] LABS: ALB/GLOB RATIO 1.6 (1.0-2.1); ALKALINE PHOSPHATASE 120 U/L (38-126); ALT/SGPT 51 U/L (21-72); AST/SGOT 28 U/L (17-59); BILIRUBIN,TOTAL 0.3 mg/dL (0.2-1.3); BLOOD UREA NITROGEN 14 mg/dL (9-20); CALCIUM 8.8 mg/dl (8.6-10.4); CARBON DIOXIDE 33 mmol/L (22-30); CHLORIDE 97 mmol/L (98-107); GFR AFRICAN-AMERICAN > 60; GLUCOSE,RANDOM 255 mg/dL (75-110); POTASSIUM 4.4 mmol/L (3.6-5.2); SODIUM 137 mmol/L (132-148); TOTAL PROTEIN 6.4 g/dL (6.3-8.3)
[2017-07-17 17:10] LABS: NEUTROPHIL 96 % (50-75); TOTAL CELLS COUNTED 100
[2017-07-17 17:11] LABS: LARGE PLATELETS PRESENT; SPHEROCYTES SLIGHT
[2017-07-17] MEDS ORDERED: Fluticasone-Salmeterol 250-50mcg Diskus INH SCH (20:00)
--- NOTE | 2017-07-17 21:43 | CP.PCM.HP ---
History of Present Illness - History of Present Illness History of Present Illness: Chief Complaint : Shortness Of Breath HPI: 67 year old male with a Hx of COPD brought in by EMS for a complaint of SOB and chest tightness. Patient was recently discharged from the hospital on for COPD and started on augmentin. Patient is on multiple inhalers, steroids, and uses bipap in the morning and at night; he used his treatments today with no improvement. On arrival, patient is coughing up phlegm and appears SOB but is not febrile. Denies nausea or vomiting. Present on Admission - Present on Admission Any Indicators Present on Admission: Yes Review of Systems - Review of Systems Systems not reviewed;Unavailable: Respiratory Distress - Constitutional Constitutional: absent: As Per HPI, Anorexia, Chills, Daytime Sleepiness, Excessive Sweating, Fatigue, Fever, Frequent Falls, Headache, Increased Appetite , Lethargy, Malaise, Night Sweats, Snoring, Sleep Apnea, Weight Gain, Weight Loss, Weakness, Other - EENT Eyes: absent: As Per HPI, Blind Spots, Blurred Vision, Change in Vision, Decreased Night Vision, Diplopia, Discharge, Dry Eye, Exophthalmos, Floaters, Irritation, Itchy Eyes, Loss of Peripheral Vision, Pain, Photophobia, Requires Corrective Lenses, Sees Flashes, Spots in Vision, Tunnel Vision, Other Visual Disturbances, Loss of Vision, Other - Cardiovascular Cardiovascular: Dyspnea - Respiratory Respiratory: Cough, Dyspnea on Exertion, Chest Congestion Past Patient History - Infectious Disease Hx of Infectious Diseases: None - Past Medical History & Family History Past Medical History?: Yes - Past Social History Smoking Status: Former Smoker - CARDIAC Hx Cardiac Disorders: Yes Hx Angina: Yes Hx Cardia Arrhythmia: (tachycardic) Hx Congestive Heart Failure: Yes Hx Hypercholesterolemia: Yes Hx Hypertension: Yes - PULMONARY Hx Respiratory Disorders: Yes Hx Asthma: Yes Hx Bronchitis: Yes Hx Chronic Obstructive Pulmonary Disease (COPD): Yes (Emphysema) Hx Emphysema: Yes Hx Pneumonia: Yes Hx Sleep Apnea: Yes - NEUROLOGICAL Hx Neurological Disorder: Yes HX Cerebrovascular Accident: Yes - HEENT Hx HEENT Problems: Yes Hx Cataracts: Yes (left cataract removed, r cataract) Other/Comment: wears eyeglasses for distance - RENAL Hx Chronic Kidney Disease: Yes Hx Kidney Stones: Yes - ENDOCRINE/METABOLIC Hx Endocrine Disorders: Yes Hx Diabetes Mellitus Type 2: Yes - HEMATOLOGICAL/ONCOLOGICAL Hx Blood Disorders: Yes Other/Comment: intestinal adenoma - INTEGUMENTARY Hx Dermatological Problems: No - MUSCULOSKELETAL/RHEUMATOLOGICAL Hx Falls: No - GASTROINTESTINAL Hx Gastrointestinal Disorders: No - GENITOURINARY/GYNECOLOGICAL Hx Genitourinary Disorders: No - PSYCHIATRIC Hx Substance Use: No - SURGICAL HISTORY Hx Surgeries: Yes Hx Cardiac Catheterization: Yes (11/2015) Other/Comment: colon resection with right ileostomy - ANESTHESIA Hx Anesthesia: Yes Hx Anesthesia Reactions: No Hx Malignant Hyperthermia: No Meds Home Medications: Home Medication List Medication Instructions Recorded Confirmed Type predniSONE [Prednisone] 10 mg PO DAILY #19 tab 07/18/17 Rx Allergies/Adverse Reactions: Allergies Allergy/AdvReac Type Severity Reaction Status Date / Time acetaminophen [From Tylenol] Allergy RASH Verified 07/15/17 21:34 FISH Allergy SWELLING Verified 07/15/17 21:34 shrimp Allergy SHORTNESS Verified 07/15/17 21:34 OF BREATH IV dye Allergy Severe ANAPHYLAXIS Uncoded 07/15/17 21:34 Physical Exam - Constitutional Appears: No Acute Distress - Eye Exam Eye Exam: EOMI, Normal appearance, PERRL Pupil Exam: NORMAL ACCOMODATION, PERRL - Respiratory Exam Respiratory Exam: Decreased Breath Sounds, Rales, Rhonchi - Cardiovascular Exam Cardiovascular Exam: REGULAR RHYTHM - GI/Abdominal Exam GI & Abdominal Exam: Normal Bowel Sounds, Soft. absent: Tenderness Results - Vital Signs Recent Vital Signs: Last Vital Signs Temp 98.3 F 07/17/17 15:00 Pulse 98 H 07/17/17 15:00 Resp 20 07/17/17 15:00 BP 112/67 07/17/17 15:00 Pulse Ox 98 07/17/17 15:00 - Labs Result Diagrams: 07/18/17 06:16 07/18/17 06:16 Labs: Laboratory Results - last 24 hr 07/16/17 07/17/17 07/17/17 21:36 07:17 11:15 WBC RBC Hgb Hct MCV MCH MCHC RDW Plt Count MPV Neut % (Auto) Lymph % (Auto) [place] % (Auto) Eos % (Auto) Baso % (Auto) Neut # Lymph # [place] # Eos # Baso # Neutrophils % (Manual) Band Neutrophils % Lymphocytes % (Manual) Monocytes % (Manual) Platelet Estimate Large Platelets Hypochromasia (manual) Microcytosis (manual) Spherocytes Ovalocytes Sodium Potassium Chloride Carbon Dioxide Anion Gap BUN Creatinine Est GFR ( Amer) Est GFR (Non-Af Amer) POC Glucose (mg/dL) 164 H 173 H 122 H Random Glucose Calcium Total Bilirubin AST ALT Alkaline Phosphatase Total Protein Albumin Globulin Albumin/Globulin Ratio 07/17/17 07/17/17 07/17/17 14:33 14:33 16:04 WBC 15.1 H RBC 4.46 Hgb 9.6 L Hct 31.2 L MCV 70.0 L MCH 21.6 L MCHC 30.9 L RDW 16.8 H Plt Count 312 MPV 7.7 Neut % (Auto) 93.0 H Lymph % (Auto) 4.0 L [place] % (Auto) 2.6 Eos % (Auto) 0.1 Baso % (Auto) 0.3 Neut # 14.1 H Lymph # 0.6 L [place] # 0.4 Eos # 0.0 Baso # 0.0 Neutrophils % (Manual) 96 H Band Neutrophils % 1 Lymphocytes % (Manual) 2 L Monocytes % (Manual) 1 Platelet Estimate Normal Large Platelets Present Hypochromasia (manual) Slight Microcytosis (manual) Slight Spherocytes Slight Ovalocytes Slight Sodium 137 Potassium 4.4 Chloride 97 L Carbon Dioxide 33 H Anion Gap 12 BUN 14 Creatinine 0.7 L Est GFR ( Amer) > 60 Est GFR (Non-Af Amer) > 60 POC Glucose (mg/dL) 301 H Random Glucose 255 H Calcium 8.8 Total Bilirubin 0.3 AST 28 ALT 51 Alkaline Phosphatase 120 Total Protein 6.4 Albumin 4.0 Globulin 2.5 Albumin/Globulin Ratio 1.6 07/17/17 21:15 WBC RBC Hgb Hct MCV MCH MCHC RDW Plt Count MPV Neut % (Auto) Lymph % (Auto) [place] % (Auto) Eos % (Auto) Baso % (Auto) Neut # Lymph # [place] # Eos # Baso # Neutrophils % (Manual) Band Neutrophils % Lymphocytes % (Manual) Monocytes % (Manual) Platelet Estimate Large Platelets Hypochromasia (manual) Microcytosis (manual) Spherocytes Ovalocytes Sodium Potassium Chloride Carbon Dioxide Anion Gap BUN Creatinine Est GFR ( Amer) Est GFR (Non-Af Amer) POC Glucose (mg/dL) 112 H Random Glucose Calcium Total Bilirubin AST ALT Alkaline Phosphatase Total Protein Albumin Globulin Albumin/Globulin Ratio Assessment & Plan (1) Acute bronchitis with asthma with acute exacerbation Status: Acute (2) Chronic obstructive lung disease Status: Acute (3) Respiratory distress Status: Acute (4) SOB (shortness of breath) Status: Acute (5) Allergic rhinitis Status: Chronic Priority: Medium (6) Steroid-induced diabetes Status: Chronic
--- NOTE | 2017-07-17 21:58 | CARD ---
APPROVED REPORT EKG Measurement Heart [id number] <Conclusion> Sinus tachycardia Rightward axis Borderline ECG
[2017-07-18] MEDS: Albuterol-Ipratrop 3 mg / 0.5 (3 ml) UD INH SCH ×3 (02:18→13:07)
[2017-07-18 06:38] LABS: ALB/GLOB RATIO 1.6 (1.0-2.1); ALKALINE PHOSPHATASE 99 U/L (38-126); ALT/SGPT 55 U/L (21-72); AST/SGOT 24 U/L (17-59); BILIRUBIN,TOTAL 0.3 mg/dL (0.2-1.3); BLOOD UREA NITROGEN 14 mg/dL (9-20); CALCIUM 8.7 mg/dl (8.6-10.4); CARBON DIOXIDE 30 mmol/L (22-30); CHLORIDE 98 mmol/L (98-107); GFR AFRICAN-AMERICAN > 60; GLUCOSE,RANDOM 177 mg/dL (75-110); POTASSIUM 4.4 mmol/L (3.6-5.2); SODIUM 138 mmol/L (132-148); TOTAL PROTEIN 6.4 g/dL (6.3-8.3)
[2017-07-18 06:47] LABS: BASO % 0.1 % (0.0-2.0); LYMPH # 1.2 K/uL (1.0-4.3); LYMPH % 9.1 % (20.0-40.0); MEAN CELL VOLUME 69.8 fL (80.0-94.0); MEAN CORPUSCULAR HEMOGLOBIN 22.2 pg (27.0-31.0); MEAN CORPUSCULAR HGB CONC 31.7 g/dL (33.0-37.0); MEAN PLATELET VOLUME 8.1 fL (7.2-11.7); MONO # 0.5 K/uL (0.0-0.8); MONO % 3.6 % (0.0-10.0); PLATELET COUNT 312 K/uL (130-400); RED CELL DISTRIBUTION WIDTH 16.7 % (11.5-14.5); WHITE BLOOD COUNT 12.8 K/uL (4.8-10.8)
[2017-07-18 08:23] VITALS: BP 122/75; PULSE 80; RESP 21; TEMP 98.1; O2SAT 100
[2017-07-18] MEDS: (Novolog) Insulin Aspart, Recombinant 100 u/ml 10 ml vial SC SCH ×2 (08:24→12:28)
[2017-07-18 10:10] LABS: NEUTROPHIL 93 % (50-75); TOTAL CELLS COUNTED 100
[2017-07-18] MEDS: guaiFENesin 600 mg ER Tab PO SCH (10:40)
[2017-07-18] MEDS: MethylPREDNISolone 40 mg Vial IV SCH (10:40)
[2017-07-18] MEDS: Multiple Vitamins Tab PO SCH (10:40)
[2017-07-18] MEDS ORDERED: Enoxaparin 40 mg Syringe SC SCH (10:45)
[2017-07-18] MEDS ORDERED: Pneumococcal 23-Valent Vaccine IM ONE (13:50)
[2017-07-18] MEDS ORDERED: Influenza Vaccine 60 mcg/0.5 mL SYR (4YR UP) IM ONE (14:30)
--- NOTE | 2017-07-18 16:12 | CP.PCM.PN ---
Subjective - Date & Time of Evaluation Date of Evaluation: 07/18/17 Time of Evaluation: 11:00 - Subjective Subjective: Alert, awake, no sob or chest pains, NAD. Objective - Vital Signs/Intake and Output Vital Signs (last 24 hours): Temp Pulse Resp BP Pulse Ox 98.1 F 80 21 122/75 100 07/18/17 08:22 07/18/17 08:22 07/18/17 08:22 07/18/17 08:22 07/18/17 08:22 Intake and Output: 07/18/17 07/18/17 06:59 18:59 Intake Total 100 600 Output Total 300 Balance -200 600 - Medications Medications: Current Medications Al Hydrox/Mg Hydrox/Simethicone (Maalox 30 Ml) 30 ml PO Q6H PRN PRN Reason: Indigestion / Heartburn Albuterol/Ipratropium (Duoneb 3 Mg/0.5 Mg (3 Ml) Ud) 3 ml INH RQ6 [facility] Last Admin: 07/18/17 13:07 Dose: 3 ml Alprazolam (Xanax) 0.5 mg PO Q12 [facility] Stop: 07/23/17 10:01 Last Admin: 07/18/17 10:40 Dose: 0.5 mg Enoxaparin Sodium (Lovenox) 40 mg SC DAILY [facility] Last Admin: 07/18/17 10:43 Dose: 40 mg Guaifenesin (Mucinex La) 600 mg PO DAILY [facility] Last Admin: 07/18/17 10:40 Dose: 600 mg Home Med (Home Med) 1 unit INH Q12 [facility] Insulin Aspart (Novolog) 0 unit SC ACHS [facility] PRN Reason: Protocol Last Admin: 07/18/17 12:28 Dose: Not Given Magnesium Hydroxide (Milk Of Magnesia) 30 ml PO DAILY PRN PRN Reason: Constipation Metformin HCl (Glucophage) 1,000 mg PO BID [facility] Last Admin: 07/18/17 10:40 Dose: 1,000 mg Methylprednisolone (Solu-Medrol) 40 mg IV Q12 [facility] Last Admin: 07/18/17 10:40 Dose: 40 mg Montelukast Sodium (Singulair) 10 mg PO HS [facility] Last Admin: 07/17/17 21:16 Dose: 10 mg Multivitamins (Hexavitamin) 1 tab PO DAILY [facility] Last Admin: 07/18/17 10:40 Dose: 1 tab Oxycodone HCl (Oxycodone Immediate Release Tab) 5 mg PO Q6 PRN PRN Reason: Pain, moderate (4-7) Last Admin: 07/17/17 21:23 Dose: 5 mg Pneumococcal Polyvalent Vaccine (Pneumovax 23 Vaccine) 0.5 ml IM .ONCE ONE Stop: 07/18/17 13:51 Roflumilast (Daliresp) 500 mcg PO DAILY [facility] Last Admin: 07/18/17 10:43 Dose: 500 mcg Fluticasone/Salmeterol (Advair Diskus 250/50) 1 puff INH RQ12 [facility] Last Admin: 07/17/17 20:49 Dose: 1 puff - Labs Labs: 07/18/17 06:16 07/18/17 06:16 PT 12.5 SECONDS (9.7-12.2) H 07/15/17 22:17 INR 1.1 07/15/17 22:17 Assessment and Plan - Assessment and Plan (Free Text) Assessment: Patient is seen and examined. Alert, awake, no sob, no wheezing, NAD. Colostomy site intact. D/W DR Garcia. plan to discharge home today on tapering dose of prednisone. Advised to follow up with PMD in 1 week.
--- NOTE | 2017-07-18 22:52 | CP.PCM.DIS ---
Provider - Provider Date of Admission: 07/15/17 23:09 Attending physician: Hal Garcia MD Time Spent in preparation of Discharge (in minutes): 67 Hospital Course - Lab Results Lab Results: Most Recent Lab Values WBC 12.8 K/uL (4.8-10.8) H 07/18/17 06:16 RBC 4.43 Mil/uL (4.40-5.90) 07/18/17 06:16 Hgb 9.8 g/dL (12.0-18.0) L 07/18/17 06:16 Hct 31.0 % (35.0-51.0) L 07/18/17 06:16 MCV 69.8 fL (80.0-94.0) L 07/18/17 06:16 MCH 22.2 pg (27.0-31.0) L 07/18/17 06:16 MCHC 31.7 g/dL (33.0-37.0) L 07/18/17 06:16 RDW 16.7 % (11.5-14.5) H 07/18/17 06:16 Plt Count 312 K/uL (130-400) 07/18/17 06:16 MPV 8.1 fL (7.2-11.7) 07/18/17 06:16 Neut % (Auto) 87.2 % (50.0-75.0) H 07/18/17 06:16 Lymph % (Auto) 9.1 % (20.0-40.0) L 07/18/17 06:16 [place] % (Auto) 3.6 % (0.0-10.0) 07/18/17 06:16 Eos % (Auto) 0.0 % (0.0-4.0) 07/18/17 06:16 Baso % (Auto) 0.1 % (0.0-2.0) 07/18/17 06:16 Neut # 11.2 K/uL (1.8-7.0) H 07/18/17 06:16 Lymph # 1.2 K/uL (1.0-4.3) 07/18/17 06:16 [place] # 0.5 K/uL (0.0-0.8) 07/18/17 06:16 Eos # 0.0 K/uL (0.0-0.7) 07/18/17 06:16 Baso # 0.0 K/uL (0.0-0.2) 07/18/17 06:16 Neutrophils % (Manual) 93 % (50-75) H 07/18/17 06:16 Band Neutrophils % 1 % (0-2) 07/17/17 14:33 Lymphocytes % (Manual) 5 % (20-40) L 07/18/17 06:16 Monocytes % (Manual) 2 % (0-10) 07/18/17 06:16 Platelet Estimate Normal (NORMAL) 07/18/17 06:16 Large Platelets Present 07/17/17 14:33 Hypochromasia (manual) Slight 07/18/17 06:16 Poikilocytosis (manual Slight 07/18/17 06:16 Anisocytosis (manual) Slight 07/18/17 06:16 Microcytosis (manual) Slight 07/18/17 06:16 Spherocytes Slight 07/17/17 14:33 Ovalocytes Slight 07/18/17 06:16 PT 12.5 SECONDS (9.7-12.2) H 07/15/17 22:17 INR 1.1 07/15/17 22:17 Sodium 138 mmol/L (132-148) 07/18/17 06:16 Potassium 4.4 mmol/L (3.6-5.2) 07/18/17 06:16 Chloride 98 mmol/L (98-107) 07/18/17 06:16 Carbon Dioxide 30 mmol/L (22-30) 07/18/17 06:16 Anion Gap 15 (10-20) 07/18/17 06:16 BUN 14 mg/dL (9-20) 07/18/17 06:16 Creatinine 0.7 mg/dL (0.8-1.5) L 07/18/17 06:16 Est GFR ( Amer) > 60 07/18/17 06:16 Est GFR (Non-Af Amer) > 60 07/18/17 06:16 POC Glucose (mg/dL) 126 mg/dL (65-110) H 07/18/17 11:15 Random Glucose 177 mg/dL (75-110) H 07/18/17 06:16 Calcium 8.7 mg/dl (8.6-10.4) 07/18/17 06:16 Magnesium 1.8 mg/dL (1.6-2.3) 07/15/17 21:55 Total Bilirubin 0.3 mg/dL (0.2-1.3) 07/18/17 06:16 AST 24 U/L (17-59) 07/18/17 06:16 ALT 55 U/L (21-72) 07/18/17 06:16 Alkaline Phosphatase 99 U/L (38-126) 07/18/17 06:16 Troponin I < 0.0120 ng/mL (0.00-0.120) 07/15/17 21:55 NT-Pro-B Natriuret Pep 31.7 pg/mL (0-900) 07/15/17 21:55 Total Protein 6.4 g/dL (6.3-8.3) 07/18/17 06:16 Albumin 4.0 g/dL (3.5-5.0) 07/18/17 06:16 Globulin 2.4 gm/dL (2.2-3.9) 07/18/17 06:16 Albumin/Globulin Ratio 1.6 (1.0-2.1) 07/18/17 06:16 - Hospital Course Hospital Course: Patient is seen and examined. Alert, awake, no sob, no wheezing, NAD. Colostomy site intact. plan to discharge home today on tapering dose of prednisone. Advised to follow up with PMD in 1 week. Discharge Exam - Head Exam Head Exam: ATRAUMATIC, NORMOCEPHALIC - Eye Exam Eye Exam: EOMI, Normal appearance - ENT Exam ENT Exam: Mucous Membranes Moist - Respiratory Exam Respiratory Exam: NORMAL BREATHING PATTERN - Cardiovascular Exam Cardiovascular Exam: REGULAR RHYTHM, +S1, +S2 - GI/Abdominal Exam GI & Abdominal Exam: Normal Bowel Sounds Discharge Plan - Discharge Medications Prescriptions: predniSONE [Prednisone] 10 mg PO DAILY #19 tab - Follow Up Plan Condition: IMPROVED Disposition: HOME/ ROUTINE Instructions: COPD (Chronic Obstructive Pulmonary Disease) (DC) Additional Instructions: Hacer she dalia con brizuela doctor primario Dr Garcia en 1 semana. Continue con david medic[facility] siempre.
== END 2017-07-18 15:30 | disposition home or self-care (01) | DRG 191 ==
LOC: C.ER 21:31 → C.9E 23:09 → C.3T 23:47
PROVIDERS: ADMIT Internal Medicine; ATTEND Internal Medicine
PROC: 5A09457 Assistance with Respiratory Ventilation, 24-96 Consecutive Hours, Continuous Positive Airway Pressure (ICD-10-PCS; principal; 2017-07-15)
DX: J44.0 Chronic obstructive pulmonary disease with (acute) lower respiratory infection (principal); J45.901 Unspecified asthma with (acute) exacerbation; J96.10 Chronic respiratory failure, unspecified whether with hypoxia or hypercapnia; E11.22 Type 2 diabetes mellitus with diabetic chronic kidney disease; I13.0 Hypertensive heart and chronic kidney disease with heart failure and stage 1 through stage 4 chronic kidney disease, or unspecified chronic kidney disease; I50.9 Heart failure, unspecified; J44.1 Chronic obstructive pulmonary disease with (acute) exacerbation; Z87.891 Personal history of nicotine dependence; Z93.3 Colostomy status; N18.9 Chronic kidney disease, unspecified; Z68.20 Body mass index [BMI] 20.0-20.9, adult

== ENCOUNTER 2017-07-27 09:10 | Inpatient (IN) | payer MEDICARE, BC ==
[2017-07-27 09:16] VITALS: BMI 21.9
[2017-07-27] MEDS ORDERED: Albuterol-Ipratrop 3 mg / 0.5 (3 ml) UD ONE ×3 (09:39→17:07)
[2017-07-27] MEDS: Albuterol-Ipratrop 3 mg / 0.5 (3 ml) UD IH SCH ×3 (10:00→10:30)
--- NOTE | 2017-07-27 10:02 | C.PDOC ---
History Of Present Illness 67 y/o male, with PMHx of COPD, rapid heart rate, presents to ED for evaluation of shortness of breath that started yesterday. Notes using breathing treatments , and taking Prednisone without improvement. Denies chest pain, cough, fever, or any other associated symptoms at this time. Time Seen by Provider: 07/27/17 09:35 Chief Complaint (Nursing): Shortness Of Breath History Per: Patient History/Exam Limitations: no limitations Onset/Duration Of Symptoms: Days Current Symptoms Are (Timing): Still Present Current Respiratory Medications: See Home Med List Associated Symptoms: denies: Fever, Chills, Sweating, Bloody Cough, Heart Racing , Leg/Calf Pain, Ankle/Leg Swelling, Dizziness, Light-headedness, Anxiety, Tingling In Hands Or Face, Musle Spasms In Hands Or Feet Recent travel outside of the [place]: No Additional History Per: Patient Past Medical History Reviewed: Historical Data, Nursing Documentation, Vital Signs Vital Signs: Last Vital Signs Temp 98.2 F 07/27/17 12:55 Pulse 116 H 07/27/17 12:55 Resp 20 07/27/17 12:55 BP 107/67 07/27/17 12:55 Pulse Ox 100 07/27/17 15:32 - Medical History PMH: Anxiety, Arthritis, Asthma, Bronchitis, CHF, COPD (Emphysema), Diabetes, Emphysema, HTN, Hypercholesterolemia, Kidney Stones, Pneumonia, Chronic Kidney Disease, Sleep Apnea Denies: Gastritis Comment Only: Cardia Arrhythmia (tachycardic) - [facility] Procedures ASSISTANCE WITH RESPIRATORY VENTILATION, 24-96 HRS, CPAP (07/15/17) ASSISTANCE WITH RESPIRATORY VENTILATION, <24 HRS, CPAP (07/08/16) ASSISTANCE WITH RESPIRATORY VENTILATION, >96 HRS, CPAP (05/08/17) CONTINUOUS INVASIVE MECHANICAL VENTILATION <96 CONSEC HRS (11/29/14) DILATION OF RIGHT URETER WITH INTRALUMINAL DEVICE, ENDO (03/20/17) EXCISION OF SIGMOID COLON, ENDO, DIAGN (03/20/17) EXCISION OF STOMACH, ENDO, DIAGN (03/20/17) EXCISION OF TRANSVERSE COLON, ENDO, DIAGN (03/20/17) INFLUENZA VACCINATION (06/02/14) INSERT ENDOTRACHEAL TUBE (11/29/14) LARYGNOSCOPY AND OTH TRACHEOSCOPY (04/18/15) MEASURE OF CARDIAC SAMPL & PRESSURE, L HEART, PERC APPROACH (12/01/15) NON-INVASIVE MECHANICAL VENTILATION (04/18/15) RESECTION OF SIGMOID COLON, OPEN APPROACH (03/20/17) RESPIRATORY VENTILATION, GREATER THAN 96 CONSECUTIVE HOURS (03/20/17) Family History: States: Unknown Family Hx - Social History Hx Tobacco Use: Yes (8 years ppd smoker. quit 1.5 years ago) Hx Alcohol Use: Yes Hx Substance Use: No - Immunization History Hx Tetanus Toxoid Vaccination: Yes Hx Influenza Vaccination: No Hx Pneumococcal Vaccination: Yes (12/01/2014) Review Of Systems Except As Marked, All Systems Reviewed And Found Negative. Constitutional: Negative for: Fever, Chills Cardiovascular: Negative for: Chest Pain, Palpitations Respiratory: Positive for: Shortness of Breath. Negative for: Cough, Hemoptysis , Sputum Gastrointestinal: Negative for: Nausea, Vomiting, Abdominal Pain Neurological: Negative for: Headache, Dizziness Physical Exam - Physical Exam Appears: Non-toxic, No Acute Distress Skin: Normal Color, Warm, Dry Head: Atraumatic, Normacephalic Eye(s): bilateral: Normal Inspection Oral Mucosa: Moist Chest: Symmetrical Cardiovascular: Rhythm Regular, No Murmur Respiratory: No Accessory Muscle Use, No Rales, No Rhonchi, Wheezing (expiratory ) Gastrointestinal/Abdominal: Soft, No Tenderness Extremity: Normal ROM, No Pedal Edema Neurological/Psych: Oriented x3, Normal Speech ED Course And Treatment - Laboratory Results Result Diagrams: 07/27/17 10:28 07/27/17 10:28 Lab Interpretation: No Acute Changes ECG: Interpreted By Me ECG Rhythm: Sinus Tachycardia ECG Interpretation: No Acute Changes Rate From EC O2 Sat by Pulse Oximetry: 100 Pulse Ox Interpretation: Normal - Other Rad No standard instances X-Ray: Viewed By Me, Read By Radiologist Interpretation: FINDINGS: LUNGS: No evidence of acute infiltrate. . Moderate centrilobular emphysematous changes with upper lobe predominance less well seen on this study as compared to prior high-resolution CT scan. . Mild biapical pleural thickening right greater than left. PLEURA: No significant pleural effusion identified. No pneumothorax apparent. CARDIOVASCULAR: Normal. OSSEOUS STRUCTURES: No significant abnormalities. VISUALIZED UPPER ABDOMEN: Normal. OTHER FINDINGS: None. IMPRESSION: No acute infiltrates. Moderate centrilobular emphysematous changes with upper lobe predominance, seen to better advantage on prior CT scan Mild biapical pleural thickening right greater than left. Progress Note: Blood work, UA, influenza AB, CXR, EKG ordered and reviewed. Pt was given nebulizer treatment, IV fluids, and Solu-Medrol. Reassessment Condition: Improved - Physician Consult Information Physician Contacted: Hal Garcia Outcome Of Conversation: admit Disposition Discussed With : Hal Garcia Doctor Will See Patient In The: Hospital - Disposition Disposition: HOSPITALIZED Disposition Time: 13:00 Condition: IMPROVED - POA Present On Arrival: None - Clinical Impression Clinical Impression: COPD (chronic obstructive pulmonary disease), Tachycardia - PA / MANAGER ENGAGEMENT / Resident Statement MD/DO has reviewed & agrees with the documentation as recorded. - Scribe Statement The provider has reviewed the documentation as recorded by the Scribe Verona Benitez All medical record entries made by the Scribe were at my direction and personally dictated by me. I have reviewed the chart and agree that the record accurately reflects my personal performance of the history, physical exam, medical decision making, and the department course for this patient. I have also personally directed, reviewed, and agree with the discharge instructions and disposition. Decision To Admit - Pt Status Changed To: Hospital Disposition Of: Inpatient - Admit Certification Admit to Inpatient:: After my assessment, the patient will require hospitalization for at least two midnights. This is because of the severity of symptoms shown, intensity of services needed, and/or the medical risk in this patient being treated as an outpatient. - InPatient: Physician Admission Certification: I certify that this patient requires 2 or more midnights of care for the following reason:: COPD exacerbation. Tachycardia - . Bed Request Type: Telemetry Admitting Physician: Hal Garcia Patient Diagnosis: COPD (chronic obstructive pulmonary disease), Tachycardia
--- NOTE | 2017-07-27 10:18 | RAD ---
HISTORY: SOB COMPARISON: Comparison chest dated 07/15/[address] chest 08/10/2016. TECHNIQUE: Chest PA and lateral. FINDINGS: LUNGS: No evidence of acute infiltrate. . Moderate centrilobular emphysematous changes with upper lobe predominance less well seen on this study as compared to prior high-resolution CT scan. . Mild biapical pleural thickening right greater than left PLEURA: No significant pleural effusion identified. No pneumothorax apparent. CARDIOVASCULAR: Normal. OSSEOUS STRUCTURES: No significant abnormalities. VISUALIZED UPPER ABDOMEN: Normal. OTHER FINDINGS: None. IMPRESSION: No acute infiltrates. Moderate centrilobular emphysematous changes with upper lobe predominance, seen to better advantage on prior CT scan Mild biapical pleural thickening right greater than left.
[2017-07-27] MEDS: Sodium Chloride 0.9% 1,000 ML IV SCH ×2 (10:40→19:42)
[2017-07-27 10:41] LABS: BASO # 0.1 K/uL (0.0-0.2); BASO % 0.9 % (0.0-2.0); EOS # 0.3 K/uL (0.0-0.7); HEMATOCRIT 31.7 % (35.0-51.0); LYMPH # 1.5 K/uL (1.0-4.3); LYMPH % 11.1 % (20.0-40.0); MEAN CELL VOLUME 68.2 fL (80.0-94.0); MEAN CORPUSCULAR HEMOGLOBIN 21.3 pg (27.0-31.0); MEAN CORPUSCULAR HGB CONC 31.2 g/dL (33.0-37.0); MEAN PLATELET VOLUME 7.9 fL (7.2-11.7); MONO # 1.1 K/uL (0.0-0.8); MONO % 8.4 % (0.0-10.0); RED CELL DISTRIBUTION WIDTH 16.9 % (11.5-14.5); WHITE BLOOD COUNT 13.2 K/uL (4.8-10.8)
[2017-07-27 10:45] LABS: ALB/GLOB RATIO 1.6 (1.0-2.1); ALKALINE PHOSPHATASE 129 U/L (38-126); ALT/SGPT 72 U/L (21-72); AST/SGOT 40 U/L (17-59); BILIRUBIN,TOTAL 0.3 mg/dL (0.2-1.3); BLOOD UREA NITROGEN 11 mg/dL (9-20); CALCIUM 8.8 mg/dl (8.6-10.4); CARBON DIOXIDE 29 mmol/L (22-30); CHLORIDE 99 mmol/L (98-107); GFR AFRICAN-AMERICAN > 60; GLUCOSE,RANDOM 219 mg/dL (75-110); POTASSIUM 4.5 mmol/L (3.6-5.2); SODIUM 135 mmol/L (132-148); TOTAL PROTEIN 6.4 g/dL (6.3-8.3)
[2017-07-27] MEDS ORDERED: Sodium Chloride 0.9% 1,000 ML ONE (11:00)
[2017-07-27 12:41] LABS: RBC URINE < 1 /hpf (0-3); URINE BILIRUBIN NEGATIVE (NEGATIVE); URINE BLOOD NEGATIVE (NEGATIVE); URINE COLOR Yellow (YELLOW); URINE GLUCOSE (UA) NORMAL (Normal); URINE KETONE NEGATIVE (NEGATIVE); URINE LEUKOCYTE ESTERASE NEG Leu/uL (Negative); URINE PROTEIN NEGATIVE (NEGATIVE); URINE UROBILINOGEN NORMAL mg/dL (0.2-1.0); WBC URINE 1 /hpf (0-5)
[2017-07-27] MEDS: Albuterol-Ipratrop 3 mg / 0.5 (3 ml) UD INH SCH ×2 (17:04→20:42)
[2017-07-27] MEDS ORDERED: Budesonide 0.25 mg/2 ml Inhal Susp UD INH SCH (20:00)
[2017-07-27] MEDS ORDERED: guaiFENesin 600 mg ER Tab PO SCH (20:00)
[2017-07-27] MEDS: Fluticasone-Salmeterol 250-50mcg Diskus INH SCH (20:44)
[2017-07-27] MEDS: (Novolog) Insulin Aspart, Recombinant 100 u/ml 10 ml vial SC SCH (22:08)
--- NOTE | 2017-07-27 22:12 | CP.PCM.HP ---
History of Present Illness - History of Present Illness History of Present Illness: CC: shortness of breath HPI: 67 y/o male, with PMHx of COPD, steroid induced Diabetes, Allergic rhinitis , colon cancer s/p resection and he has a colostomy ,rapid heart rate, presents to ED for evaluation of shortness of breath associated with wheezing, chest pain on coughing that started yesterday. Notes using breathing treatments, and taking Prednisone without improvement. Denies chest pain, cough, fever, or any other associated symptoms at this time.He is complaint with diet, medication and follow up and is home bound on Oxygen therapy in home Present on Admission - Present on Admission Any Indicators Present on Admission: Yes Review of Systems - Review of Systems Systems not reviewed;Unavailable: Acuity of Condition - Constitutional Constitutional: Fatigue, Lethargy, Malaise - EENT Nose/Mouth/Throat: Nasal Congestion - Cardiovascular Cardiovascular: Dyspnea - Respiratory Respiratory: Cough, Dyspnea on Exertion, Chest Congestion, Excessive Mucous Production, Change in Mucous Color - Gastrointestinal Gastrointestinal: absent: As Per HPI, Abdominal Pain, Belching, Bloating, Change in Bowel Habits, Change in Stool Character, Coffee Ground Emesis, Constipation, Cramping, Diarrhea, Dyspepsia, Dysphagia, Early Satiety, Excessive Flatus, Fecal Incontinence, Heartburn, Hematemesis, Hematochezia, Loose Stools, Melena, Nausea, Odynophagia, Temesmus, Vomiting, Other - Genitourinary Genitourinary: absent: As Per HPI, Change in Urinary Stream, Difficulty Urinating, Dysuria, Flank Pain, Hematuria, Pyuria, Nocturia, Urinary Incontinence, Urinary Frequency, Urinary Hesitance, Urinary Urgency, Voiding Freq/Small Amts, Freq UTI, Hx Renal/Bladder Calculi, Hx /Renal Surgery, Bladder Distension, Other - Integumentary Integumentary: Dry Skin - Neurological Neurological: absent: As Per HPI, Abnormal Gait, Abnormal Hearing, Abnormal Movements, Abnormal Speech, Behavioral Changes, Burning Sensations, Confusion, Convulsions, Disequilibrium, Dizziness, Numbness, Focal Weakness, Frequent Falls , Headaches, Lack of Coordination, Loss of Vision, Memory Loss, Paresthesias, Radicular Pain, Restless Legs, Sensory Deficit, Syncope, Tingling, Tremor, Vertigo, Weakness, Other Visual Disturbances, Other Past Patient History - Infectious Disease Hx of Infectious Diseases: None - Past Medical History & Family History Past Medical History?: Yes - Past Social History Smoking Status: Former Smoker - CARDIAC Hx Cardia Arrhythmia: (tachycardic) Hx Congestive Heart Failure: Yes Hx Hypercholesterolemia: Yes Hx Hypertension: Yes - PULMONARY Hx Asthma: Yes Hx Bronchitis: Yes Hx Chronic Obstructive Pulmonary Disease (COPD): Yes (Emphysema) Hx Emphysema: Yes Hx Pneumonia: Yes Hx Sleep Apnea: Yes - NEUROLOGICAL Hx Neurological Disorder: Yes HX Cerebrovascular Accident: Yes - HEENT Hx HEENT Problems: Yes Hx Cataracts: Yes (left cataract removed, r cataract) Other/Comment: wears eyeglasses for distance - RENAL Hx Chronic Kidney Disease: Yes Hx Kidney Stones: Yes - ENDOCRINE/METABOLIC Hx Endocrine Disorders: Yes Hx Diabetes Mellitus Type 2: Yes - HEMATOLOGICAL/ONCOLOGICAL Hx Blood Disorders: Yes Hx Anemia: Yes Other/Comment: intestinal adenoma - INTEGUMENTARY Hx Dermatological Problems: No - MUSCULOSKELETAL/RHEUMATOLOGICAL Hx Arthritis: Yes Hx Falls: No - GASTROINTESTINAL Hx Gastritis: No - GENITOURINARY/GYNECOLOGICAL Hx Genitourinary Disorders: No - PSYCHIATRIC Hx Anxiety: Yes Hx Substance Use: No - SURGICAL HISTORY Hx Surgeries: Yes Hx Cardiac Catheterization: Yes (11/2015) Other/Comment: colon resection with right ileostomy - ANESTHESIA Hx Anesthesia: Yes Hx Anesthesia Reactions: No Hx Malignant Hyperthermia: No Meds Allergies/Adverse Reactions: Allergies Allergy/AdvReac Type Severity Reaction Status Date / Time acetaminophen [From Tylenol] Allergy RASH Verified 07/15/17 21:34 FISH Allergy SWELLING Verified 07/15/17 21:34 shrimp Allergy SHORTNESS Verified 07/15/17 21:34 OF BREATH IV dye Allergy Severe ANAPHYLAXIS Uncoded 07/15/17 21:34 Physical Exam - Constitutional Appears: No Acute Distress - Head Exam Head Exam: ATRAUMATIC, NORMAL INSPECTION, NORMOCEPHALIC - Eye Exam Eye Exam: EOMI, Normal appearance, PERRL Pupil Exam: NORMAL ACCOMODATION, PERRL - Respiratory Exam Respiratory Exam: Decreased Breath Sounds, Wheezes - Cardiovascular Exam Cardiovascular Exam: REGULAR RHYTHM - GI/Abdominal Exam GI & Abdominal Exam: Normal Bowel Sounds, Soft. absent: Tenderness Additional comments: ileostomy in place with green semi solid stool - Rectal Exam Rectal Exam: NORMAL INSPECTION - Neurological Exam Neurological exam: Alert, CN II-XII Intact, Normal Gait, Oriented x3, Reflexes Normal - Psychiatric Exam Psychiatric exam: Normal Affect, Normal Mood - Skin Skin Exam: Dry, Intact, Normal Color, Warm Additional comments: thin skin Results - Vital Signs Recent Vital Signs: Last Vital Signs Temp 97.8 F 07/27/17 17:19 Pulse 120 H 07/27/17 18:10 Resp 18 07/27/17 17:19 BP 116/68 07/27/17 17:19 Pulse Ox 99 07/27/17 17:19 - Labs Result Diagrams: 07/27/17 10:28 07/27/17 10:28 Labs: Laboratory Results - last 24 hr 07/27/17 07/27/17 07/27/17 09:46 10:28 10:28 WBC 13.2 H RBC 4.65 Hgb 9.9 L Hct 31.7 L MCV 68.2 L MCH 21.3 L MCHC 31.2 L RDW 16.9 H Plt Count 282 MPV 7.9 Neut % (Auto) 77.6 H Lymph % (Auto) 11.1 L [place] % (Auto) 8.4 Eos % (Auto) 2.0 Baso % (Auto) 0.9 Neut # 10.2 H Lymph # 1.5 [place] # 1.1 H Eos # 0.3 Baso # 0.1 Sodium 135 Potassium 4.5 Chloride 99 Carbon Dioxide 29 Anion Gap 11 BUN 11 Creatinine 0.6 L Est GFR ( Amer) > 60 Est GFR (Non-Af Amer) > 60 POC Glucose (mg/dL) Random Glucose 219 H Calcium 8.8 Total Bilirubin 0.3 AST 40 ALT 72 D Alkaline Phosphatase 129 H D CK-MB (Mass) 1.78 Troponin I < 0.0120 NT-Pro-B Natriuret Pep 33.1 Total Protein 6.4 Albumin 3.9 Globulin 2.5 Albumin/Globulin Ratio 1.6 Urine Color Urine Clarity Urine pH Ur Specific [place] Urine Protein Urine Glucose (UA) Urine Ketones Urine Blood Urine Nitrate Urine Bilirubin Urine Urobilinogen Ur Leukocyte Esterase Urine WBC (Auto) Urine RBC (Auto) Ur Squamous Epith Cells Influenza Typ A,B (EIA) Negative for flu a/b 07/27/17 07/27/17 12:19 21:28 WBC RBC Hgb Hct MCV MCH MCHC RDW Plt Count MPV Neut % (Auto) Lymph % (Auto) [place] % (Auto) Eos % (Auto) Baso % (Auto) Neut # Lymph # [place] # Eos # Baso # Sodium Potassium Chloride Carbon Dioxide Anion Gap BUN Creatinine Est GFR ( Amer) Est GFR (Non-Af Amer) POC Glucose (mg/dL) 261 H Random Glucose Calcium Total Bilirubin AST ALT Alkaline Phosphatase CK-MB (Mass) Troponin I NT-Pro-B Natriuret Pep Total Protein Albumin Globulin Albumin/Globulin Ratio Urine Color Yellow Urine Clarity Clear Urine pH 5.0 Ur Specific [place] 1.021 Urine Protein Negative Urine Glucose (UA) Normal Urine Ketones Negative Urine Blood Negative Urine Nitrate Negative Urine Bilirubin Negative Urine Urobilinogen Normal Ur Leukocyte Esterase Neg Urine WBC (Auto) 1 Urine RBC (Auto) < 1 Ur Squamous Epith Cells < 1 Influenza Typ A,B (EIA) Assessment & Plan (1) COPD (chronic obstructive pulmonary disease) Status: Acute (2) Acute bronchitis with asthma with acute exacerbation Status: Acute (3) Allergic rhinitis Status: Chronic Priority: Medium (4) Steroid-induced diabetes Status: Chronic
[2017-07-27] MEDS: MethylPREDNISolone 40 mg Vial IVP SCH (22:15)
[2017-07-28] MEDS: guaiFENesin 200 mg/10 ml Syrup UD PO SCH ×6 (01:26→19:47)
[2017-07-28] MEDS: Albuterol-Ipratrop 3 mg / 0.5 (3 ml) UD INH SCH ×4 (01:43→20:58)
[2017-07-28] MEDS: Sodium Chloride 0.9% 1,000 ML IV SCH ×3 (05:38→19:50)
[2017-07-28] MEDS: Fluticasone-Salmeterol 250-50mcg Diskus INH SCH ×2 (08:10→20:59)
[2017-07-28] MEDS: Budesonide 0.25 mg/2 ml Inhal Susp UD INH SCH ×2 (08:10→20:58)
[2017-07-28] MEDS: (Novolog) Insulin Aspart, Recombinant 100 u/ml 10 ml vial SC SCH ×4 (08:30→21:27)
[2017-07-28] MEDS: Pantoprazole 40 mg EC Tab PO SCH (10:18)
[2017-07-28] MEDS: MethylPREDNISolone 40 mg Vial IVP SCH ×2 (10:18→21:31)
[2017-07-28] MEDS: Enoxaparin 40 mg Syringe SC SCH (10:18)
--- NOTE | 2017-07-28 23:43 | CP.PCM.PN ---
Subjective - Date & Time of Evaluation Date of Evaluation: 07/28/17 Time of Evaluation: 19:00 - Subjective Subjective: Pt seen & examined at bedside, still coughing, wheezing, pt is short of breath Objective - Vital Signs/Intake and Output Vital Signs (last 24 hours): Temp Pulse Resp BP Pulse Ox 97.9 F 117 H 18 114/67 98 07/28/17 16:00 07/28/17 19:16 07/28/17 16:00 07/28/17 16:00 07/28/17 16:00 Intake and Output: 07/28/17 07/29/17 18:59 06:59 Intake Total 780 1300 Output Total 200 Balance 580 1300 - Medications Medications: Current Medications Albuterol/Ipratropium (Duoneb 3 Mg/0.5 Mg (3 Ml) Ud) 3 ml INH RQ6 [facility] [place] Last Admin: 07/28/17 20:58 Dose: 3 ml Alprazolam (Xanax) 0.5 mg PO BID [facility] [place] Last Admin: 07/28/17 17:08 Dose: 0.5 mg Budesonide (Pulmicort Respules) 0.25 mg INH RQ12 [facility] [place] Last Admin: 07/28/17 20:58 Dose: 0.25 mg Enoxaparin Sodium (Lovenox) 40 mg SC DAILY [facility] [place] Last Admin: 07/28/17 10:18 Dose: 40 mg Guaifenesin (Robitussin) 200 mg PO Q4 [facility] [place] Last Admin: 07/28/17 19:47 Dose: 200 mg Sodium Chloride (Sodium Chloride 0.9%) 1,000 mls @ 100 mls/hr IV .Q10H [facility] [place] Last Admin: 07/28/17 19:50 Dose: 100 mls/hr Insulin Aspart (Novolog) 0 unit SC ACHS [facility] [place] PRN Reason: Protocol Last Admin: 07/28/17 21:27 Dose: Not Given Metformin HCl (Glucophage) 500 mg PO BID [facility] [place] Last Admin: 07/28/17 17:08 Dose: 500 mg Methylprednisolone (Solu-Medrol) 40 mg IVP Q12 [facility] [place] Last Admin: 07/28/17 21:31 Dose: 40 mg Montelukast Sodium (Singulair) 10 mg PO DAILY [facility] [place] Last Admin: 07/28/17 10:18 Dose: 10 mg Pantoprazole Sodium (Protonix Ec Tab) 40 mg PO DAILY [facility] [place] Last Admin: 07/28/17 10:18 Dose: 40 mg Roflumilast (Daliresp) 500 mcg PO DAILY [facility] [place] Last Admin: 07/28/17 10:21 Dose: 500 mcg Fluticasone/Salmeterol (Advair Diskus 250/50) 1 puff INH RBID [facility] [place] Last Admin: 07/28/17 20:59 Dose: 1 puff - Labs Labs: 07/27/17 10:28 07/27/17 10:28 - Constitutional Appears: No Acute Distress - Head Exam Head Exam: ATRAUMATIC, NORMAL INSPECTION, NORMOCEPHALIC - Eye Exam Eye Exam: EOMI, Normal appearance, PERRL Pupil Exam: NORMAL ACCOMODATION, PERRL - Respiratory Exam Respiratory Exam: Decreased Breath Sounds, Rales, Rhonchi, Wheezes, NORMAL BREATHING PATTERN - Cardiovascular Exam Cardiovascular Exam: REGULAR RHYTHM, +S1, +S2. absent: Murmur - GI/Abdominal Exam GI & Abdominal Exam: Soft, Normal Bowel Sounds. absent: Tenderness Assessment and Plan (1) COPD (chronic obstructive pulmonary disease) Status: Acute (2) Acute bronchitis with asthma with acute exacerbation Status: Acute (3) Allergic rhinitis Status: Chronic (4) Steroid-induced diabetes Status: Chronic
[2017-07-29] MEDS: guaiFENesin 200 mg/10 ml Syrup UD PO SCH ×6 (00:06→19:17)
[2017-07-29] MEDS: Albuterol-Ipratrop 3 mg / 0.5 (3 ml) UD INH SCH ×4 (01:59→19:52)
[2017-07-29] MEDS: Sodium Chloride 0.9% 1,000 ML IV SCH ×4 (03:43→21:05)
[2017-07-29] MEDS: Fluticasone-Salmeterol 250-50mcg Diskus INH SCH ×2 (08:10→19:52)
[2017-07-29] MEDS: Budesonide 0.25 mg/2 ml Inhal Susp UD INH SCH ×2 (08:10→19:52)
[2017-07-29] MEDS: (Novolog) Insulin Aspart, Recombinant 100 u/ml 10 ml vial SC SCH ×4 (08:23→21:38)
[2017-07-29] MEDS: Pantoprazole 40 mg EC Tab PO SCH (10:11)
[2017-07-29] MEDS: Enoxaparin 40 mg Syringe SC SCH (10:11)
[2017-07-29] MEDS: MethylPREDNISolone 40 mg Vial IVP SCH ×2 (10:11→21:43)
--- NOTE | 2017-07-29 22:49 | CP.PCM.PN ---
Subjective - Date & Time of Evaluation Date of Evaluation: 07/29/17 Time of Evaluation: 18:00 - Subjective Subjective: Pt seen & evaluated today, less coughing, less short of breath Objective - Vital Signs/Intake and Output Vital Signs (last 24 hours): Temp Pulse Resp BP Pulse Ox 97.3 F L 122 H 20 123/65 98 07/29/17 15:59 07/29/17 20:41 07/29/17 15:59 07/29/17 15:59 07/29/17 15:59 Intake and Output: 07/29/17 07/30/17 18:59 06:59 Intake Total 1080 1500 Balance 1080 1500 - Medications Medications: Current Medications Albuterol/Ipratropium (Duoneb 3 Mg/0.5 Mg (3 Ml) Ud) 3 ml INH RQ6 [facility] Last Admin: 07/29/17 19:52 Dose: 3 ml Alprazolam (Xanax) 0.5 mg PO BID [facility] Last Admin: 07/29/17 17:04 Dose: 0.5 mg Budesonide (Pulmicort Respules) 0.25 mg INH RQ12 [facility] Last Admin: 07/29/17 19:52 Dose: 0.25 mg Enoxaparin Sodium (Lovenox) 40 mg SC DAILY [facility] Last Admin: 07/29/17 10:11 Dose: 40 mg Guaifenesin (Robitussin) 200 mg PO Q4 [facility] Last Admin: 07/29/17 19:17 Dose: 200 mg Sodium Chloride (Sodium Chloride 0.9%) 1,000 mls @ 100 mls/hr IV .Q10H [facility] Last Admin: 07/29/17 21:05 Dose: Not Given Insulin Aspart (Novolog) 0 unit SC ACHS [facility] PRN Reason: Protocol Last Admin: 07/29/17 21:38 Dose: Not Given Metformin HCl (Glucophage) 500 mg PO BID [facility] Last Admin: 07/29/17 17:04 Dose: 500 mg Methylprednisolone (Solu-Medrol) 40 mg IVP Q12 [facility] Last Admin: 07/29/17 21:43 Dose: 40 mg Montelukast Sodium (Singulair) 10 mg PO DAILY [facility] Last Admin: 07/29/17 10:11 Dose: 10 mg Pantoprazole Sodium (Protonix Ec Tab) 40 mg PO DAILY [facility] Last Admin: 07/29/17 10:11 Dose: 40 mg Roflumilast (Daliresp) 500 mcg PO DAILY [facility] Last Admin: 07/29/17 10:11 Dose: 500 mcg Fluticasone/Salmeterol (Advair Diskus 250/50) 1 puff INH RBID [facility] Last Admin: 07/29/17 19:52 Dose: 1 puff - Labs Labs: 07/27/17 10:28 07/27/17 10:28 - Constitutional Appears: No Acute Distress - Head Exam Head Exam: ATRAUMATIC, NORMAL INSPECTION, NORMOCEPHALIC - Eye Exam Eye Exam: EOMI, Normal appearance, PERRL Pupil Exam: NORMAL ACCOMODATION, PERRL - ENT Exam ENT Exam: Mucous Membranes Moist - Respiratory Exam Respiratory Exam: Decreased Breath Sounds, Rales, Wheezes - Cardiovascular Exam Cardiovascular Exam: REGULAR RHYTHM, +S1, +S2. absent: Murmur Assessment and Plan (1) COPD (chronic obstructive pulmonary disease) Status: Acute (2) Acute bronchitis with asthma with acute exacerbation Status: Acute (3) Allergic rhinitis Status: Chronic (4) Steroid-induced diabetes Status: Chronic
[2017-07-30] MEDS: guaiFENesin 200 mg/10 ml Syrup UD PO SCH ×6 (00:24→21:46)
[2017-07-30] MEDS: Albuterol-Ipratrop 3 mg / 0.5 (3 ml) UD INH SCH ×4 (01:21→20:21)
[2017-07-30] MEDS: Sodium Chloride 0.9% 1,000 ML IV SCH ×2 (02:00→08:43)
[2017-07-30] MEDS: Fluticasone-Salmeterol 250-50mcg Diskus INH SCH ×2 (08:01→20:21)
[2017-07-30] MEDS: Budesonide 0.25 mg/2 ml Inhal Susp UD INH SCH ×2 (08:01→20:21)
[2017-07-30] MEDS: (Novolog) Insulin Aspart, Recombinant 100 u/ml 10 ml vial SC SCH ×4 (08:39→21:39)
[2017-07-30] MEDS: Pantoprazole 40 mg EC Tab PO SCH (10:03)
[2017-07-30] MEDS: Enoxaparin 40 mg Syringe SC SCH (10:04)
[2017-07-30] MEDS: MethylPREDNISolone 40 mg Vial IVP SCH ×2 (10:04→21:46)
[2017-07-30 12:02] LABS: BASO % 0.3 % (0.0-2.0); EOS # 0.1 K/uL (0.0-0.7); EOS % 0.5 % (0.0-4.0); HEMATOCRIT 33.5 % (35.0-51.0); LYMPH # 1.8 K/uL (1.0-4.3); MEAN CORPUSCULAR HEMOGLOBIN 21.5 pg (27.0-31.0); MEAN CORPUSCULAR HGB CONC 31.6 g/dL (33.0-37.0); MEAN PLATELET VOLUME 8.3 fL (7.2-11.7); MONO # 1.1 K/uL (0.0-0.8); MONO % 9.3 % (0.0-10.0); RED CELL DISTRIBUTION WIDTH 17.4 % (11.5-14.5); WHITE BLOOD COUNT 11.8 K/uL (4.8-10.8)
[2017-07-30 12:32] LABS: ALB/GLOB RATIO 1.6 (1.0-2.1); ALKALINE PHOSPHATASE 129 U/L (38-126); ALT/SGPT 66 U/L (21-72); AST/SGOT 32 U/L (17-59); BILIRUBIN,TOTAL 0.4 mg/dL (0.2-1.3); BLOOD UREA NITROGEN 9 mg/dL (9-20); CALCIUM 8.9 mg/dl (8.6-10.4); CARBON DIOXIDE 33 mmol/L (22-30); CHLORIDE 97 mmol/L (98-107); GFR AFRICAN-AMERICAN > 60; GLUCOSE,RANDOM 114 mg/dL (75-110); POTASSIUM 3.5 mmol/L (3.6-5.2); SODIUM 139 mmol/L (132-148); TOTAL PROTEIN 6.9 g/dL (6.3-8.3)
[2017-07-30] MEDS ORDERED: Potassium Chloride 20 mEq ER Tab PO ONE (14:00)
[2017-07-30] MEDS: oxyCODONE 5 mg Immediate Release Tab PO PRN (16:51)
--- NOTE | 2017-07-30 18:08 | CP.PCM.CON ---
Past Patient History - Infectious Disease Hx of Infectious Diseases: None - Past Medical History & Family History Past Medical History?: Yes - Past Social History Smoking Status: Former Smoker - CARDIAC Hx Cardia Arrhythmia: (tachycardic) Hx Congestive Heart Failure: Yes Hx Hypercholesterolemia: Yes Hx Hypertension: Yes - PULMONARY Hx Asthma: Yes Hx Bronchitis: Yes Hx Chronic Obstructive Pulmonary Disease (COPD): Yes (Emphysema) Hx Emphysema: Yes Hx Pneumonia: Yes Hx Sleep Apnea: Yes - NEUROLOGICAL Hx Neurological Disorder: Yes HX Cerebrovascular Accident: Yes - HEENT Hx HEENT Problems: Yes Hx Cataracts: Yes (left cataract removed, r cataract) Other/Comment: wears eyeglasses for distance - RENAL Hx Chronic Kidney Disease: Yes Hx Kidney Stones: Yes - ENDOCRINE/METABOLIC Hx Endocrine Disorders: Yes Hx Diabetes Mellitus Type 2: Yes - HEMATOLOGICAL/ONCOLOGICAL Hx Blood Disorders: Yes Hx Anemia: Yes Other/Comment: intestinal adenoma - INTEGUMENTARY Hx Dermatological Problems: No - MUSCULOSKELETAL/RHEUMATOLOGICAL Hx Arthritis: Yes Hx Falls: No - GASTROINTESTINAL Hx Gastritis: No - GENITOURINARY/GYNECOLOGICAL Hx Genitourinary Disorders: No - PSYCHIATRIC Hx Anxiety: Yes Hx Substance Use: No - SURGICAL HISTORY Hx Surgeries: Yes Hx Cardiac Catheterization: Yes (11/2015) Other/Comment: colon resection with right ileostomy - ANESTHESIA Hx Anesthesia: Yes Hx Anesthesia Reactions: No Hx Malignant Hyperthermia: No Meds Allergies/Adverse Reactions: Allergies Allergy/AdvReac Type Severity Reaction Status Date / Time acetaminophen [From Tylenol] Allergy RASH Verified 07/15/17 21:34 FISH Allergy SWELLING Verified 07/15/17 21:34 shrimp Allergy SHORTNESS Verified 07/15/17 21:34 OF BREATH IV dye Allergy Severe ANAPHYLAXIS Uncoded 07/15/17 21:34 - Medications Medications: Current Medications Albuterol/Ipratropium (Duoneb 3 Mg/0.5 Mg (3 Ml) Ud) 3 ml INH RQ6 [facility] Last Admin: 07/30/17 13:02 Dose: 3 ml Alprazolam (Xanax) 0.5 mg PO BID [facility] Last Admin: 07/30/17 10:03 Dose: 0.5 mg Budesonide (Pulmicort Respules) 0.25 mg INH RQ12 [facility] Last Admin: 07/30/17 08:01 Dose: 0.25 mg Enoxaparin Sodium (Lovenox) 40 mg SC DAILY [facility] Last Admin: 07/30/17 10:04 Dose: 40 mg Guaifenesin (Robitussin) 200 mg PO Q4 [facility] Last Admin: 07/30/17 16:50 Dose: 200 mg Insulin Aspart (Novolog) 0 unit SC ACHS [facility] PRN Reason: Protocol Last Admin: 07/30/17 16:50 Dose: 2 unit Metformin HCl (Glucophage) 1,000 mg PO BID [facility] Last Admin: 07/30/17 10:04 Dose: 1,000 mg Methylprednisolone (Solu-Medrol) 40 mg IVP Q12 [facility] Last Admin: 07/30/17 10:04 Dose: 40 mg Montelukast Sodium (Singulair) 10 mg PO HS [facility] Oxycodone HCl (Oxycodone Immediate Release Tab) 5 mg PO Q6H PRN PRN Reason: Pain, moderate (4-7) Last Admin: 07/30/17 16:51 Dose: 5 mg Pantoprazole Sodium (Protonix Ec Tab) 40 mg PO DAILY [facility] Last Admin: 07/30/17 10:03 Dose: 40 mg Roflumilast (Daliresp) 500 mcg PO DAILY [facility] Last Admin: 07/30/17 10:04 Dose: 500 mcg Fluticasone/Salmeterol (Advair Diskus 250/50) 1 puff INH RBID [facility] Last Admin: 07/30/17 08:01 Dose: 1 puff Results - Vital Signs Recent Vital Signs: Last Vital Signs Temp 97.9 F 07/30/17 15:28 Pulse 108 H 07/30/17 15:28 Resp 20 07/30/17 15:28 BP 113/72 07/30/17 15:28 Pulse Ox 97 07/30/17 15:28 - Labs Result Diagrams: 07/30/17 11:41 07/30/17 11:41 Labs: Laboratory Results - last 24 hr 07/29/17 07/30/17 07/30/17 21:24 06:31 10:53 WBC RBC Hgb Hct MCV MCH MCHC RDW Plt Count MPV Neut % (Auto) Lymph % (Auto) Haakon % (Auto) Eos % (Auto) Baso % (Auto) Neut # Lymph # Haakon # Eos # Baso # Sodium Potassium Chloride Carbon Dioxide Anion Gap BUN Creatinine Est GFR ( Amer) Est GFR (Non-Af Amer) POC Glucose (mg/dL) 164 H 217 H 108 Random Glucose Calcium Total Bilirubin AST ALT Alkaline Phosphatase Total Protein Albumin Globulin Albumin/Globulin Ratio 07/30/17 07/30/17 07/30/17 11:41 11:41 16:37 WBC 11.8 H RBC 4.92 Hgb 10.6 L Hct 33.5 L MCV 68.0 L MCH 21.5 L MCHC 31.6 L RDW 17.4 H Plt Count 302 MPV 8.3 Neut % (Auto) 74.9 Lymph % (Auto) 15.0 L Haakon % (Auto) 9.3 Eos % (Auto) 0.5 Baso % (Auto) 0.3 Neut # 8.9 H Lymph # 1.8 Haakon # 1.1 H Eos # 0.1 Baso # 0.0 Sodium 139 Potassium 3.5 L Chloride 97 L Carbon Dioxide 33 H Anion Gap 13 BUN 9 Creatinine 0.6 L Est GFR ( Amer) > 60 Est GFR (Non-Af Amer) > 60 POC Glucose (mg/dL) 215 H Random Glucose 114 H Calcium 8.9 Total Bilirubin 0.4 AST 32 ALT 66 Alkaline Phosphatase 129 H Total Protein 6.9 Albumin 4.2 Globulin 2.7 Albumin/Globulin Ratio 1.6
--- NOTE | 2017-07-30 22:28 | CARD ---
APPROVED REPORT EKG Measurement Heart [id number] [id number] <Conclusion> Sinus tachycardia with premature atrial complexes Otherwise normal ECG
--- NOTE | 2017-07-30 23:15 | CP.PCM.PN ---
Subjective - Date & Time of Evaluation Date of Evaluation: 07/30/17 Time of Evaluation: 19:00 - Subjective Subjective: pt is seen and evaluated by me today, is improving, no resp distress today, at times shortness of breath but right now he is stable Objective - Vital Signs/Intake and Output Vital Signs (last 24 hours): Temp Pulse Resp BP Pulse Ox 97.9 F 87 20 113/72 97 07/30/17 15:28 07/30/17 20:23 07/30/17 15:28 07/30/17 15:28 07/30/17 15:28 Intake and Output: 07/30/17 07/31/17 18:59 06:59 Intake Total 1070 Output Total 200 Balance 870 - Medications Medications: Current Medications Albuterol/Ipratropium (Duoneb 3 Mg/0.5 Mg (3 Ml) Ud) 3 ml INH RQ6 [facility] Last Admin: 07/30/17 20:21 Dose: 3 ml Alprazolam (Xanax) 0.5 mg PO BID [facility] [place] Last Admin: 07/30/17 19:06 Dose: 0.5 mg Budesonide (Pulmicort Respules) 0.25 mg INH RQ12 [facility] [place] Last Admin: 07/30/17 20:21 Dose: 0.25 mg Enoxaparin Sodium (Lovenox) 40 mg SC DAILY [facility] [place] Last Admin: 07/30/17 10:04 Dose: 40 mg Guaifenesin (Robitussin) 200 mg PO Q4 [facility] [place] Last Admin: 07/30/17 21:46 Dose: 200 mg Insulin Aspart (Novolog) 0 unit SC ACHS [facility] [place] PRN Reason: Protocol Last Admin: 07/30/17 21:39 Dose: Not Given Metformin HCl (Glucophage) 1,000 mg PO BID [facility] [place] Last Admin: 07/30/17 19:05 Dose: 1,000 mg Methylprednisolone (Solu-Medrol) 40 mg IVP Q12 [facility] [place] Last Admin: 07/30/17 21:46 Dose: 40 mg Montelukast Sodium (Singulair) 10 mg PO HS [facility] [place] Last Admin: 07/30/17 21:46 Dose: 10 mg Oxycodone HCl (Oxycodone Immediate Release Tab) 5 mg PO Q6H PRN PRN Reason: Pain, moderate (4-7) Last Admin: 07/30/17 16:51 Dose: 5 mg Pantoprazole Sodium (Protonix Ec Tab) 40 mg PO DAILY [facility] [place] Last Admin: 07/30/17 10:03 Dose: 40 mg Roflumilast (Daliresp) 500 mcg PO DAILY [facility] [place] Last Admin: 07/30/17 10:04 Dose: 500 mcg Fluticasone/Salmeterol (Advair Diskus 250/50) 1 puff INH RBID [facility] [place] Last Admin: 07/30/17 20:21 Dose: 1 puff - Labs Labs: 07/30/17 11:41 07/30/17 11:41 - Constitutional Appears: No Acute Distress - Head Exam Head Exam: ATRAUMATIC, NORMAL INSPECTION, NORMOCEPHALIC - Respiratory Exam Respiratory Exam: Decreased Breath Sounds - Cardiovascular Exam Cardiovascular Exam: REGULAR RHYTHM, +S1, +S2. absent: Murmur - GI/Abdominal Exam GI & Abdominal Exam: Soft, Normal Bowel Sounds. absent: Tenderness Assessment and Plan (1) COPD (chronic obstructive pulmonary disease) Status: Acute (2) Acute bronchitis with asthma with acute exacerbation Status: Acute (3) Allergic rhinitis Status: Chronic (4) Steroid-induced diabetes Status: Chronic
[2017-07-31] MEDS: guaiFENesin 200 mg/10 ml Syrup UD PO SCH ×6 (00:03→21:18)
[2017-07-31] MEDS: oxyCODONE 5 mg Immediate Release Tab PO PRN (00:05)
[2017-07-31] MEDS: Albuterol-Ipratrop 3 mg / 0.5 (3 ml) UD INH SCH ×4 (01:22→19:58)
[2017-07-31] MEDS: Budesonide 0.25 mg/2 ml Inhal Susp UD INH SCH ×2 (07:46→19:58)
[2017-07-31] MEDS: Fluticasone-Salmeterol 250-50mcg Diskus INH SCH ×2 (07:46→19:58)
[2017-07-31] MEDS: (Novolog) Insulin Aspart, Recombinant 100 u/ml 10 ml vial SC SCH ×4 (08:30→22:56)
[2017-07-31] MEDS: Pantoprazole 40 mg EC Tab PO SCH (09:59)
[2017-07-31] MEDS: Enoxaparin 40 mg Syringe SC SCH (09:59)
[2017-07-31] MEDS: MethylPREDNISolone 40 mg Vial IVP SCH ×2 (10:04→21:19)
--- NOTE | 2017-07-31 13:07 | CP.PCM.PN ---
Subjective - Date & Time of Evaluation Date of Evaluation: 07/31/17 Time of Evaluation: 10:00 - Subjective Subjective: Pt seen and evaluated at bedside Objective - Vital Signs/Intake and Output Vital Signs (last 24 hours): Temp Pulse Resp BP Pulse Ox 97.8 F 20 L 89 H 117/77 100 07/31/17 09:02 07/31/17 09:02 07/31/17 09:02 07/31/17 09:02 07/31/17 09:02 - Medications Medications: Current Medications Albuterol/Ipratropium (Duoneb 3 Mg/0.5 Mg (3 Ml) Ud) 3 ml INH RQ6 [facility] Last Admin: 07/31/17 13:02 Dose: 3 ml Alprazolam (Xanax) 0.5 mg PO BID [facility] Last Admin: 07/31/17 09:59 Dose: 0.5 mg Budesonide (Pulmicort Respules) 0.25 mg INH RQ12 [facility] Last Admin: 07/31/17 07:46 Dose: 0.25 mg Enoxaparin Sodium (Lovenox) 40 mg SC DAILY [facility] Last Admin: 07/31/17 09:59 Dose: 40 mg Guaifenesin (Robitussin) 200 mg PO Q4 [facility] Last Admin: 07/31/17 12:22 Dose: 200 mg Insulin Aspart (Novolog) 0 unit SC ACHS [facility] PRN Reason: Protocol Last Admin: 07/31/17 12:22 Dose: 1 unit Metformin HCl (Glucophage) 1,000 mg PO BID [facility] Last Admin: 07/31/17 09:59 Dose: 1,000 mg Methylprednisolone (Solu-Medrol) 40 mg IVP Q12 [facility] Last Admin: 07/31/17 10:04 Dose: 40 mg Montelukast Sodium (Singulair) 10 mg PO HS [facility] Last Admin: 07/30/17 21:46 Dose: 10 mg Oxycodone HCl (Oxycodone Immediate Release Tab) 5 mg PO Q6H PRN PRN Reason: Pain, moderate (4-7) Last Admin: 07/31/17 00:05 Dose: 5 mg Pantoprazole Sodium (Protonix Ec Tab) 40 mg PO DAILY [facility] Last Admin: 07/31/17 09:59 Dose: 40 mg Roflumilast (Daliresp) 500 mcg PO DAILY [facility] Last Admin: 07/31/17 09:59 Dose: 500 mcg Fluticasone/Salmeterol (Advair Diskus 250/50) 1 puff INH RBID [facility] Last Admin: 07/31/17 07:46 Dose: 1 puff - Labs Labs: 07/30/17 11:41 07/30/17 11:41 Assessment and Plan (1) COPD (chronic obstructive pulmonary disease) Status: Acute (2) Acute bronchitis with asthma with acute exacerbation Status: Acute (3) Allergic rhinitis Status: Chronic (4) Steroid-induced diabetes Status: Chronic
--- NOTE | 2017-07-31 14:43 | CP.PCM.PN ---
Subjective - Date & Time of Evaluation Date of Evaluation: 07/31/17 Time of Evaluation: 09:20 - Subjective Subjective: patient seen and examined Still complaining of shortness of breath and wheezing Afebrile No chest pain Objective - Vital Signs/Intake and Output Vital Signs (last 24 hours): Temp Pulse Resp BP Pulse Ox 97.8 F 82 89 H 117/77 100 07/31/17 09:02 07/31/17 13:24 07/31/17 09:02 07/31/17 09:02 07/31/17 09:02 Intake and Output: 07/31/17 07/31/17 06:59 18:59 Intake Total 280 Balance 280 - Medications Medications: Current Medications Albuterol/Ipratropium (Duoneb 3 Mg/0.5 Mg (3 Ml) Ud) 3 ml INH RQ6 [facility] Last Admin: 07/31/17 13:02 Dose: 3 ml Alprazolam (Xanax) 0.5 mg PO BID [facility] Last Admin: 07/31/17 09:59 Dose: 0.5 mg Budesonide (Pulmicort Respules) 0.25 mg INH RQ12 [facility] Last Admin: 07/31/17 07:46 Dose: 0.25 mg Enoxaparin Sodium (Lovenox) 40 mg SC DAILY [facility] Last Admin: 07/31/17 09:59 Dose: 40 mg Guaifenesin (Robitussin) 200 mg PO Q4 [facility] Last Admin: 07/31/17 12:22 Dose: 200 mg Insulin Aspart (Novolog) 0 unit SC ACHS [facility] PRN Reason: Protocol Last Admin: 07/31/17 12:22 Dose: 1 unit Metformin HCl (Glucophage) 1,000 mg PO BID [facility] Last Admin: 07/31/17 09:59 Dose: 1,000 mg Methylprednisolone (Solu-Medrol) 40 mg IVP Q12 [facility] Last Admin: 07/31/17 10:04 Dose: 40 mg Montelukast Sodium (Singulair) 10 mg PO HS [facility] Last Admin: 07/30/17 21:46 Dose: 10 mg Oxycodone HCl (Oxycodone Immediate Release Tab) 5 mg PO Q6H PRN PRN Reason: Pain, moderate (4-7) Last Admin: 07/31/17 00:05 Dose: 5 mg Pantoprazole Sodium (Protonix Ec Tab) 40 mg PO DAILY [facility] Last Admin: 07/31/17 09:59 Dose: 40 mg Roflumilast (Daliresp) 500 mcg PO DAILY [facility] Last Admin: 07/31/17 09:59 Dose: 500 mcg Fluticasone/Salmeterol (Advair Diskus 250/50) 1 puff INH RBID [facility] Last Admin: 07/31/17 07:46 Dose: 1 puff - Labs Labs: 07/30/17 11:41 07/30/17 11:41 - Head Exam Head Exam: ATRAUMATIC, NORMOCEPHALIC - Neck Exam Neck Exam: Normal Inspection - Respiratory Exam Respiratory Exam: Decreased Breath Sounds - Cardiovascular Exam Cardiovascular Exam: REGULAR RHYTHM - GI/Abdominal Exam GI & Abdominal Exam: Soft, Normal Bowel Sounds - Extremities Exam Extremities Exam: Normal Inspection - Neurological Exam Neurological Exam: Alert, Oriented x3 Assessment and Plan (1) Acute and chronic respiratory failure ([id number]) Assessment & Plan: BiPAP as needed Continue IV steroids Continue nebulizer treatment Follow-up ABG Status: Acute (2) COPD exacerbation Status: Acute
[2017-08-01] MEDS: guaiFENesin 200 mg/10 ml Syrup UD PO SCH ×7 (00:35→20:13)
[2017-08-01] MEDS: oxyCODONE 5 mg Immediate Release Tab PO PRN ×2 (00:42→21:45)
[2017-08-01] MEDS: Albuterol-Ipratrop 3 mg / 0.5 (3 ml) UD INH SCH ×4 (02:37→19:56)
[2017-08-01] MEDS: Budesonide 0.25 mg/2 ml Inhal Susp UD INH SCH ×2 (07:32→19:55)
[2017-08-01] MEDS: Fluticasone-Salmeterol 250-50mcg Diskus INH SCH ×2 (07:32→19:55)
[2017-08-01] MEDS: (Novolog) Insulin Aspart, Recombinant 100 u/ml 10 ml vial SC SCH ×4 (08:23→21:59)
[2017-08-01 08:24] LABS: BASO % 0.3 % (0.0-2.0); EOS % 0.1 % (0.0-4.0); HEMATOCRIT 30.5 % (35.0-51.0); LYMPH # 1.8 K/uL (1.0-4.3); LYMPH % 12.5 % (20.0-40.0); MEAN CELL VOLUME 67.4 fL (80.0-94.0); MEAN CORPUSCULAR HEMOGLOBIN 21.8 pg (27.0-31.0); MEAN CORPUSCULAR HGB CONC 32.3 g/dL (33.0-37.0); MEAN PLATELET VOLUME 8.1 fL (7.2-11.7); MONO # 0.8 K/uL (0.0-0.8); MONO % 5.3 % (0.0-10.0); RED CELL DISTRIBUTION WIDTH 16.9 % (11.5-14.5); WHITE BLOOD COUNT 14.6 K/uL (4.8-10.8)
[2017-08-01 09:07] LABS: ALB/GLOB RATIO 1.6 (1.0-2.1); ALKALINE PHOSPHATASE 125 U/L (38-126); ALT/SGPT 52 U/L (21-72); AST/SGOT 28 U/L (17-59); BILIRUBIN,TOTAL 0.4 mg/dL (0.2-1.3); BLOOD UREA NITROGEN 15 mg/dL (9-20); CARBON DIOXIDE 35 mmol/L (22-30); CHLORIDE 93 mmol/L (98-107); GFR AFRICAN-AMERICAN > 60; GLUCOSE,RANDOM 213 mg/dL (75-110); POTASSIUM 4.8 mmol/L (3.6-5.2); SODIUM 133 mmol/L (132-148); TOTAL PROTEIN 6.2 g/dL (6.3-8.3)
[2017-08-01] MEDS: MethylPREDNISolone 40 mg Vial IVP SCH ×2 (10:06→21:45)
[2017-08-01] MEDS: Pantoprazole 40 mg EC Tab PO SCH (10:06)
[2017-08-01] MEDS: Enoxaparin 40 mg Syringe SC SCH (10:06)
--- NOTE | 2017-08-01 15:26 | CP.PCM.PN ---
Subjective - Date & Time of Evaluation Date of Evaluation: 08/01/17 Time of Evaluation: 15:22 - Subjective Subjective: Coverage for Dr Nuno Patient seen and examined Still wheezing and is dyspnic Uses BiPAP intermittently Objective - Vital Signs/Intake and Output Vital Signs (last 24 hours): Temp Pulse Resp BP Pulse Ox 97.8 F 88 18 123/63 98 08/01/17 08:20 08/01/17 13:35 08/01/17 08:20 08/01/17 08:20 08/01/17 08:20 Intake and Output: 08/01/17 08/01/17 06:59 18:59 Intake Total 300 Output Total 100 Balance 200 - Medications Medications: Current Medications Albuterol/Ipratropium (Duoneb 3 Mg/0.5 Mg (3 Ml) Ud) 3 ml INH RQ6 [facility] Last Admin: 08/01/17 13:30 Dose: 3 ml Alprazolam (Xanax) 0.5 mg PO BID [facility] Last Admin: 08/01/17 10:05 Dose: 0.5 mg Budesonide (Pulmicort Respules) 0.25 mg INH RQ12 [facility] Last Admin: 08/01/17 07:32 Dose: 0.25 mg Enoxaparin Sodium (Lovenox) 40 mg SC DAILY [facility] Last Admin: 08/01/17 10:06 Dose: 40 mg Guaifenesin (Robitussin) 200 mg PO Q4 [facility] Last Admin: 08/01/17 13:00 Dose: 200 mg Insulin Aspart (Novolog) 0 unit SC ACHS [facility] PRN Reason: Protocol Last Admin: 08/01/17 13:00 Dose: 1 unit Metformin HCl (Glucophage) 1,000 mg PO BID [facility] Last Admin: 08/01/17 10:05 Dose: 1,000 mg Methylprednisolone (Solu-Medrol) 40 mg IVP Q12 [facility] Last Admin: 08/01/17 10:06 Dose: 40 mg Montelukast Sodium (Singulair) 10 mg PO HS [facility] Last Admin: 07/31/17 21:19 Dose: 10 mg Oxycodone HCl (Oxycodone Immediate Release Tab) 5 mg PO Q6H PRN PRN Reason: Pain, moderate (4-7) Last Admin: 08/01/17 00:42 Dose: 5 mg Pantoprazole Sodium (Protonix Ec Tab) 40 mg PO DAILY [facility] Last Admin: 08/01/17 10:06 Dose: 40 mg Roflumilast (Daliresp) 500 mcg PO DAILY [facility] Last Admin: 08/01/17 10:05 Dose: 500 mcg Fluticasone/Salmeterol (Advair Diskus 250/50) 1 puff INH RBID [facility] Last Admin: 08/01/17 07:32 Dose: 1 puff - Labs Labs: 08/01/17 08:12 08/01/17 08:12 - Head Exam Head Exam: NORMAL INSPECTION - Eye Exam Eye Exam: Normal appearance - ENT Exam ENT Exam: Mucous Membranes Moist - Respiratory Exam Respiratory Exam: Wheezes - Cardiovascular Exam Cardiovascular Exam: REGULAR RHYTHM, +S1, +S2 - GI/Abdominal Exam GI & Abdominal Exam: Soft, Normal Bowel Sounds - Extremities Exam Extremities Exam: Normal Inspection Assessment and Plan (1) Acute and chronic respiratory failure ([id number]) Status: Acute (2) COPD exacerbation Status: Acute - Assessment and Plan (Free Text) Plan: IV steroids Bronchodilators BiPAP as needed Advair 1 p Q 12 hrs Accucheck Insulun coverage DVT/GI prophalaxis
--- NOTE | 2017-08-01 22:36 | CP.PCM.PN ---
Subjective - Date & Time of Evaluation Date of Evaluation: 08/01/17 Time of Evaluation: 19:00 - Subjective Subjective: Patient seen and examined Still wheezing and is dyspnic Uses BiPAP intermittently Objective - Vital Signs/Intake and Output Vital Signs (last 24 hours): Temp Pulse Resp BP Pulse Ox 97.8 F 106 H 18 113/59 L 97 08/01/17 16:00 08/01/17 20:00 08/01/17 16:00 08/01/17 16:00 08/01/17 16:00 Intake and Output: 08/01/17 08/02/17 18:59 06:59 Intake Total 870 Balance 870 - Medications Medications: Current Medications Alprazolam (Xanax) 0.5 mg PO BID [facility] Last Admin: 08/01/17 17:11 Dose: 0.5 mg Budesonide (Pulmicort Respules) 0.25 mg INH RQ12 [facility] Last Admin: 08/01/17 19:55 Dose: 0.25 mg Enoxaparin Sodium (Lovenox) 40 mg SC DAILY [facility] Last Admin: 08/01/17 10:06 Dose: 40 mg Guaifenesin (Robitussin) 200 mg PO Q4 [facility] Last Admin: 08/01/17 20:13 Dose: 200 mg Insulin Aspart (Novolog) 0 unit SC ACHS [facility] PRN Reason: Protocol Last Admin: 08/01/17 21:59 Dose: Not Given Metformin HCl (Glucophage) 1,000 mg PO BID [facility] Last Admin: 08/01/17 17:10 Dose: 1,000 mg Methylprednisolone (Solu-Medrol) 40 mg IVP Q12 [facility] Last Admin: 08/01/17 21:45 Dose: 40 mg Montelukast Sodium (Singulair) 10 mg PO HS [facility] Last Admin: 08/01/17 21:45 Dose: 10 mg Oxycodone HCl (Oxycodone Immediate Release Tab) 5 mg PO Q6H PRN PRN Reason: Pain, moderate (4-7) Last Admin: 08/01/17 21:45 Dose: 5 mg Pantoprazole Sodium (Protonix Ec Tab) 40 mg PO DAILY [facility] Last Admin: 08/01/17 10:06 Dose: 40 mg Roflumilast (Daliresp) 500 mcg PO DAILY [facility] Last Admin: 08/01/17 10:05 Dose: 500 mcg Fluticasone/Salmeterol (Advair Diskus 250/50) 1 puff INH RBID [facility] Last Admin: 08/01/17 19:55 Dose: 1 puff - Labs Labs: 08/01/17 08:12 08/01/17 08:12 - Constitutional Appears: No Acute Distress - Head Exam Head Exam: ATRAUMATIC, NORMAL INSPECTION, NORMOCEPHALIC - Eye Exam Eye Exam: EOMI, Normal appearance, PERRL Pupil Exam: NORMAL ACCOMODATION, PERRL - Respiratory Exam Respiratory Exam: Decreased Breath Sounds, Rales, Wheezes - Cardiovascular Exam Cardiovascular Exam: REGULAR RHYTHM, +S1, +S2. absent: Murmur Assessment and Plan (1) COPD (chronic obstructive pulmonary disease) Status: Acute (2) Acute bronchitis with asthma with acute exacerbation Status: Acute (3) Allergic rhinitis Status: Chronic (4) Steroid-induced diabetes Status: Chronic
[2017-08-02] MEDS: guaiFENesin 200 mg/10 ml Syrup UD PO SCH ×6 (02:39→20:53)
[2017-08-02] MEDS: Fluticasone-Salmeterol 250-50mcg Diskus INH SCH ×2 (08:12→19:10)
[2017-08-02] MEDS: Budesonide 0.25 mg/2 ml Inhal Susp UD INH SCH ×2 (08:14→19:10)
[2017-08-02] MEDS: (Novolog) Insulin Aspart, Recombinant 100 u/ml 10 ml vial SC SCH ×4 (08:29→21:31)
[2017-08-02] MEDS: Enoxaparin 40 mg Syringe SC SCH (10:19)
[2017-08-02] MEDS: MethylPREDNISolone 40 mg Vial IVP SCH ×2 (10:19→21:37)
[2017-08-02] MEDS: Pantoprazole 40 mg EC Tab PO SCH (10:20)
--- NOTE | 2017-08-02 15:21 | CP.PCM.PN ---
Subjective - Date & Time of Evaluation Date of Evaluation: 08/02/17 Time of Evaluation: 15:19 - Subjective Subjective: PT SEEN FOR POSS D/C HOME. + WHEEZING B/L, MILD SOB, HOWEVER IMPROVED COMPARED TO YESTERDAY. DISCUSSED WITH DR. HUNT AND OK TO D/C IN THE MORNING. CONTINUE IV STEROIDS X1 MORE DAY THEN D/C WITH MEDROL DOSE PACK. REFILLED GLUCERNA AND ROBITUSSIN. ALL RX SENT TO PT'S PHARMACY AND PT IS AWARE AND IN AGREEMENT WITH D/C IN THE MORNING. DR. ZHANG MADE AWARE WELL, MESSAGE LEFT ON CELL. NO FURTHER ORDERS. Objective - Vital Signs/Intake and Output Vital Signs (last 24 hours): Temp Pulse Resp BP Pulse Ox 97.1 F L 100 H 20 126/72 97 08/02/17 07:26 08/02/17 14:27 08/02/17 07:26 08/02/17 07:26 08/02/17 07:26 Intake and Output: 08/02/17 08/02/17 06:59 18:59 Intake Total 750 Output Total 450 Balance 300 - Medications Medications: Current Medications Alprazolam (Xanax) 0.5 mg PO BID [facility] Last Admin: 08/02/17 10:20 Dose: 0.5 mg Budesonide (Pulmicort Respules) 0.25 mg INH RQ12 [facility] Last Admin: 08/02/17 08:14 Dose: 0.25 mg Enoxaparin Sodium (Lovenox) 40 mg SC DAILY [facility] Last Admin: 08/02/17 10:19 Dose: 40 mg Guaifenesin (Robitussin) 200 mg PO Q4 [facility] Last Admin: 08/02/17 12:06 Dose: 200 mg Insulin Aspart (Novolog) 0 unit SC ACHS [facility] PRN Reason: Protocol Last Admin: 08/02/17 12:06 Dose: 1 unit Metformin HCl (Glucophage) 1,000 mg PO BID [facility] Last Admin: 08/02/17 10:20 Dose: 1,000 mg Methylprednisolone (Solu-Medrol) 40 mg IVP Q12 [facility] Last Admin: 08/02/17 10:19 Dose: 40 mg Montelukast Sodium (Singulair) 10 mg PO HS [facility] Last Admin: 08/01/17 21:45 Dose: 10 mg Oxycodone HCl (Oxycodone Immediate Release Tab) 5 mg PO Q6H PRN PRN Reason: Pain, moderate (4-7) Last Admin: 08/01/17 21:45 Dose: 5 mg Pantoprazole Sodium (Protonix Ec Tab) 40 mg PO DAILY [facility] Last Admin: 08/02/17 10:20 Dose: 40 mg Roflumilast (Daliresp) 500 mcg PO DAILY [facility] Last Admin: 08/02/17 10:20 Dose: 500 mcg Fluticasone/Salmeterol (Advair Diskus 250/50) 1 puff INH RBID [facility] Last Admin: 08/02/17 08:12 Dose: 1 puff - Labs Labs: 08/01/17 08:12 08/01/17 08:12
--- NOTE | 2017-08-02 19:08 | CP.PCM.PN ---
Subjective - Date & Time of Evaluation Date of Evaluation: 08/02/17 Time of Evaluation: 19:07 - Subjective Subjective: Patient seen and examined No events overnight Improved dyspnea Objective - Vital Signs/Intake and Output Vital Signs (last 24 hours): Temp Pulse Resp BP Pulse Ox 97.9 F 106 H 18 111/71 97 08/02/17 16:47 08/02/17 18:41 08/02/17 16:47 08/02/17 16:47 08/02/17 16:47 Intake and Output: 08/02/17 08/03/17 18:59 06:59 Intake Total 280 Balance 280 - Medications Medications: Current Medications Alprazolam (Xanax) 0.5 mg PO BID [facility] Last Admin: 08/02/17 17:27 Dose: 0.5 mg Budesonide (Pulmicort Respules) 0.25 mg INH RQ12 [facility] Last Admin: 08/02/17 08:14 Dose: 0.25 mg Enoxaparin Sodium (Lovenox) 40 mg SC DAILY [facility] Last Admin: 08/02/17 10:19 Dose: 40 mg Guaifenesin (Robitussin) 200 mg PO Q4 [facility] Last Admin: 08/02/17 16:31 Dose: 200 mg Insulin Aspart (Novolog) 0 unit SC ACHS [facility] PRN Reason: Protocol Last Admin: 08/02/17 17:27 Dose: 3 unit Metformin HCl (Glucophage) 1,000 mg PO BID [facility] Last Admin: 08/02/17 17:27 Dose: 1,000 mg Methylprednisolone (Solu-Medrol) 40 mg IVP Q12 [facility] Last Admin: 08/02/17 10:19 Dose: 40 mg Montelukast Sodium (Singulair) 10 mg PO HS [facility] Last Admin: 08/01/17 21:45 Dose: 10 mg Oxycodone HCl (Oxycodone Immediate Release Tab) 5 mg PO Q6H PRN PRN Reason: Pain, moderate (4-7) Last Admin: 08/01/17 21:45 Dose: 5 mg Pantoprazole Sodium (Protonix Ec Tab) 40 mg PO DAILY [facility] Last Admin: 08/02/17 10:20 Dose: 40 mg Roflumilast (Daliresp) 500 mcg PO DAILY [facility] Last Admin: 08/02/17 10:20 Dose: 500 mcg Fluticasone/Salmeterol (Advair Diskus 250/50) 1 puff INH RBID CHANCE Last Admin: 08/02/17 08:12 Dose: 1 puff - Labs Labs: 08/01/17 08:12 08/01/17 08:12 - Head Exam Head Exam: NORMAL INSPECTION - ENT Exam ENT Exam: Mucous Membranes Moist - Respiratory Exam Respiratory Exam: Prolonged Expiratory Phase, Wheezes - Cardiovascular Exam Cardiovascular Exam: REGULAR RHYTHM, +S1, +S2 - GI/Abdominal Exam GI & Abdominal Exam: Soft, Normal Bowel Sounds - Extremities Exam Extremities Exam: Normal Inspection Assessment and Plan (1) Acute and chronic respiratory failure ([id number]) Status: Acute (2) COPD exacerbation Status: Acute - Assessment and Plan (Free Text) Plan: IV steroids Bronchodilators BiPAP as needed Advair 1 p Q 12 hrs Accucheck Insulun coverage DVT/GI prophalaxis
--- NOTE | 2017-08-02 22:57 | CP.PCM.PN ---
Subjective - Date & Time of Evaluation Date of Evaluation: 08/02/17 Time of Evaluation: 19:40 - Subjective Subjective: Pt seen and examined, less cough, less wheezing ,less short of breath, is afebriel Objective - Vital Signs/Intake and Output Vital Signs (last 24 hours): Temp Pulse Resp BP Pulse Ox 97.9 F 110 H 18 111/71 97 08/02/17 16:47 08/02/17 20:48 08/02/17 16:47 08/02/17 16:47 08/02/17 16:47 Intake and Output: 08/02/17 08/03/17 18:59 06:59 Intake Total 280 800 Balance 280 800 - Medications Medications: Current Medications Alprazolam (Xanax) 0.5 mg PO BID [facility] Last Admin: 08/02/17 17:27 Dose: 0.5 mg Budesonide (Pulmicort Respules) 0.25 mg INH RQ12 [facility] Last Admin: 08/02/17 19:10 Dose: 0.25 mg Enoxaparin Sodium (Lovenox) 40 mg SC DAILY [facility] Last Admin: 08/02/17 10:19 Dose: 40 mg Guaifenesin (Robitussin) 200 mg PO Q4 [facility] Last Admin: 08/02/17 20:53 Dose: 200 mg Insulin Aspart (Novolog) 0 unit SC ACHS [facility] PRN Reason: Protocol Last Admin: 08/02/17 21:31 Dose: Not Given Metformin HCl (Glucophage) 1,000 mg PO BID [facility] Last Admin: 08/02/17 17:27 Dose: 1,000 mg Methylprednisolone (Solu-Medrol) 40 mg IVP Q12 [facility] Last Admin: 08/02/17 21:37 Dose: 40 mg Montelukast Sodium (Singulair) 10 mg PO HS [facility] Last Admin: 08/02/17 21:37 Dose: 10 mg Oxycodone HCl (Oxycodone Immediate Release Tab) 5 mg PO Q6H PRN PRN Reason: Pain, moderate (4-7) Last Admin: 08/01/17 21:45 Dose: 5 mg Pantoprazole Sodium (Protonix Ec Tab) 40 mg PO DAILY [facility] Last Admin: 08/02/17 10:20 Dose: 40 mg Roflumilast (Daliresp) 500 mcg PO DAILY [facility] Last Admin: 08/02/17 10:20 Dose: 500 mcg Fluticasone/Salmeterol (Advair Diskus 250/50) 1 puff INH RBID CHANCE Last Admin: 08/02/17 19:10 Dose: 1 puff - Labs Labs: 08/01/17 08:12 08/01/17 08:12 - Constitutional Appears: No Acute Distress - Head Exam Head Exam: ATRAUMATIC, NORMAL INSPECTION, NORMOCEPHALIC - Eye Exam Eye Exam: EOMI, Normal appearance, PERRL Pupil Exam: NORMAL ACCOMODATION, PERRL - Respiratory Exam Respiratory Exam: Decreased Breath Sounds, Wheezes - Cardiovascular Exam Cardiovascular Exam: Tachycardia, +S1, +S2 - GI/Abdominal Exam GI & Abdominal Exam: Soft, Normal Bowel Sounds. absent: Tenderness Assessment and Plan (1) COPD (chronic obstructive pulmonary disease) Assessment & Plan: taper steroids Status: Acute (2) Acute bronchitis with asthma with acute exacerbation Status: Acute (3) Allergic rhinitis Status: Chronic (4) Steroid-induced diabetes Status: Chronic
[2017-08-03] MEDS: guaiFENesin 200 mg/10 ml Syrup UD PO SCH ×3 (00:09→08:33)
[2017-08-03 08:17] VITALS: BP 123/76; PULSE 93; RESP 20; TEMP 97.3; O2SAT 98
[2017-08-03] MEDS: (Novolog) Insulin Aspart, Recombinant 100 u/ml 10 ml vial SC SCH (08:30)
[2017-08-03] MEDS: Budesonide 0.25 mg/2 ml Inhal Susp UD INH SCH (09:24)
[2017-08-03] MEDS: Fluticasone-Salmeterol 250-50mcg Diskus INH SCH (09:24)
[2017-08-03] MEDS: Pantoprazole 40 mg EC Tab PO SCH (09:35)
[2017-08-03] MEDS: MethylPREDNISolone 40 mg Vial IVP SCH (09:36)
[2017-08-03] MEDS: Enoxaparin 40 mg Syringe SC SCH (09:36)
--- NOTE | 2017-08-03 23:34 | CP.PCM.DIS ---
Provider - Provider Date of Admission: 07/27/17 11:52 Attending physician: Hal Garcia MD Time Spent in preparation of Discharge (in minutes): 56 Diagnosis - Discharge Diagnosis (1) COPD (chronic obstructive pulmonary disease) Status: Acute (2) Acute bronchitis with asthma with acute exacerbation Status: Acute (3) Allergic rhinitis Status: Chronic Priority: Medium (4) Steroid-induced diabetes Status: Chronic Hospital Course - Lab Results Lab Results: Micro Results 07/27/17 10:30 Blood Blood Culture - Final NO GROWTH AFTER 5 DAYS 07/27/17 10:30 Blood Gram Stain - Final TEST NOT PERFORMED 07/27/17 11:14 Blood Blood Culture - Final NO GROWTH AFTER 5 DAYS 07/27/17 11:14 Blood Gram Stain - Final TEST NOT PERFORMED Most Recent Lab Values WBC 14.6 K/uL (4.8-10.8) H 08/01/17 08:12 RBC 4.53 Mil/uL (4.40-5.90) 08/01/17 08:12 Hgb 9.9 g/dL (12.0-18.0) L 08/01/17 08:12 Hct 30.5 % (35.0-51.0) L 08/01/17 08:12 MCV 67.4 fL (80.0-94.0) L 08/01/17 08:12 MCH 21.8 pg (27.0-31.0) L 08/01/17 08:12 MCHC 32.3 g/dL (33.0-37.0) L 08/01/17 08:12 RDW 16.9 % (11.5-14.5) H 08/01/17 08:12 Plt Count 315 K/uL (130-400) 08/01/17 08:12 MPV 8.1 fL (7.2-11.7) 08/01/17 08:12 Neut % (Auto) 81.8 % (50.0-75.0) H 08/01/17 08:12 Lymph % (Auto) 12.5 % (20.0-40.0) L 08/01/17 08:12 Sharp % (Auto) 5.3 % (0.0-10.0) 08/01/17 08:12 Eos % (Auto) 0.1 % (0.0-4.0) 08/01/17 08:12 Baso % (Auto) 0.3 % (0.0-2.0) 08/01/17 08:12 Neut # 12.0 K/uL (1.8-7.0) H 08/01/17 08:12 Lymph # 1.8 K/uL (1.0-4.3) 08/01/17 08:12 Sharp # 0.8 K/uL (0.0-0.8) 08/01/17 08:12 Eos # 0.0 K/uL (0.0-0.7) 08/01/17 08:12 Baso # 0.0 K/uL (0.0-0.2) 08/01/17 08:12 Sodium 133 mmol/L (132-148) 08/01/17 08:12 Potassium 4.8 mmol/L (3.6-5.2) 08/01/17 08:12 Chloride 93 mmol/L (98-107) L 08/01/17 08:12 Carbon Dioxide 35 mmol/L (22-30) H 08/01/17 08:12 Anion Gap 11 (10-20) 08/01/17 08:12 BUN 15 mg/dL (9-20) 08/01/17 08:12 Creatinine 0.7 mg/dL (0.8-1.5) L 08/01/17 08:12 Est GFR ( Amer) > 60 08/01/17 08:12 Est GFR (Non-Af Amer) > 60 08/01/17 08:12 POC Glucose (mg/dL) 204 mg/dL (65-110) H 08/03/17 06:31 Random Glucose 213 mg/dL (75-110) H 08/01/17 08:12 Calcium 9.0 mg/dl (8.6-10.4) 08/01/17 08:12 Total Bilirubin 0.4 mg/dL (0.2-1.3) 08/01/17 08:12 AST 28 U/L (17-59) 08/01/17 08:12 ALT 52 U/L (21-72) 08/01/17 08:12 Alkaline Phosphatase 125 U/L (38-126) 08/01/17 08:12 CK-MB (Mass) 1.78 ng/mL (0.0-3.38) 07/27/17 10:28 Troponin I < 0.0120 ng/mL (0.00-0.120) 07/27/17 10:28 NT-Pro-B Natriuret Pep 33.1 pg/mL (0-900) 07/27/17 10:28 Total Protein 6.2 g/dL (6.3-8.3) L 08/01/17 08:12 Albumin 3.8 g/dL (3.5-5.0) 08/01/17 08:12 Globulin 2.3 gm/dL (2.2-3.9) 08/01/17 08:12 Albumin/Globulin Ratio 1.6 (1.0-2.1) 08/01/17 08:12 Urine Color Yellow (YELLOW) 07/27/17 12:19 Urine Clarity Clear (Clear) 07/27/17 12:19 Urine pH 5.0 (5.0-8.0) 07/27/17 12:19 Ur Specific [place] 1.021 (1.003-1.030) 07/27/17 12:19 Urine Protein Negative mg/dL (NEGATIVE) 07/27/17 12:19 Urine Glucose (UA) Normal mg/dL (Normal) 07/27/17 12:19 Urine Ketones Negative mg/dL (NEGATIVE) 07/27/17 12:19 Urine Blood Negative (NEGATIVE) 07/27/17 12:19 Urine Nitrate Negative (NEGATIVE) 07/27/17 12:19 Urine Bilirubin Negative (NEGATIVE) 07/27/17 12:19 Urine Urobilinogen Normal mg/dL (0.2-1.0) 07/27/17 12:19 Ur Leukocyte Esterase Neg Eulalio/uL (Negative) 07/27/17 12:19 Urine WBC (Auto) 1 /hpf (0-5) 07/27/17 12:19 Urine RBC (Auto) < 1 /hpf (0-3) 07/27/17 12:19 Ur Squamous Epith Cells < 1 /hpf (0-5) 07/27/17 12:19 Influenza Typ A,B (EIA) Negative for flu a/b (NEGATIVE) 07/27/17 09:46 - Hospital Course Hospital Course: PT SEEN AND EXAMINED, OK FOR D/C HOME. + WHEEZING B/L, MILD SOB, HOWEVER IMPROVED COMPARED TO YESTERDAY. DISCUSSED WITH DR. HUNT AND OK TO D/C IN THE MORNING. CONTINUE IV STEROIDS X1 MORE DAY THEN D/C WITH MEDROL DOSE PACK. REFILLED GLUCERNA AND ROBITUSSIN. ALL RX SENT TO PT'S PHARMACY AND PT IS AWARE AND IN AGREEMENT WITH D/C IN THE MORNING. Discharge Exam - Head Exam Head Exam: ATRAUMATIC, NORMAL INSPECTION, NORMOCEPHALIC - Eye Exam Eye Exam: EOMI, Normal appearance, PERRL Pupil Exam: NORMAL ACCOMODATION, PERRL - Respiratory Exam Respiratory Exam: Decreased Breath Sounds, Rales - Cardiovascular Exam Cardiovascular Exam: +S1, +S2 - Neurological Exam Neurological exam: Alert, CN II-XII Intact, Normal Gait, Oriented x3, Reflexes Normal - Psychiatric Exam Psychiatric exam: Normal Affect, Normal Mood Discharge Plan - Discharge Medications Prescriptions: Nut.tx.gluc.intoler,Lac-Fr,Soy [Glucerna] 1 bottle PO TID #90 liquid Methylprednisolone [Medrol Dose Pack (21 tabs)] 4 mg PO DAILY #21 mg guaiFENesin [Robitussin] 200 mg PO Q4 #8 oz - Follow Up Plan Condition: IMPROVED Disposition: HOME/ ROUTINE Instructions: Methylprednisolone (By mouth), COPD (Chronic Obstructive Pulmonary Disease) (DC) Additional Instructions: SEGUIMIENTO CON EL DR. GARCIA EN LA OFICINA EN EL PLAZO DE 7 BERRY DE LA [place] --- LLAME AL MAANA PARA HACER NICOLE JOLLY. SEGUIMIENTO CON EL DR. NUNO EN LA OFICINA DENTRO DE 1-2 SEMANAS DE [place] --- LLAME AL MAANA PARA HACER NICOLE JOLLY. CONTINE LOS MEDICAMENTOS DE NICOLE HOGAR IAIN HABITUALMENTE. CONTINE CON EL USO DE OXGENO Y BIPAP IAIN HABITUAL. NUEVA PRESCRIPCIN PARA NICOLE ESTEROIDES Y RUSTAM RECARGA PARA GLUCERNA Y MEDICINA PARA LA TOS. PARA MS PREOCUPACIONES O PREGUNTAS, CONTACTE CON EL DR. GARCIA O DR. VIRGIL OCAMPO. FOLLOW UP WITH DR. GARCIA IN THE OFFICE WITHIN 7 DAYS OF DISCHARGE---CALL TOMORROW TO MAKE YOUR APPOINTMENT. FOLLOW UP WITH DR. NUNO IN THE OFFICE WITHIN 1-2 WEEKS OF DISCHARGE---CALL TOMORROW TO MAKE YOUR APPOINTMENT. CONTINUE YOUR HOME MEDICATIONS USUAL. CONTINUE YOUR OXYGEN AND BIPAP USE USUAL. NEW PRESCRIPTION FOR YOUR STEROID AND A REFILL FOR GLUCERNA AND COUGH MEDICINE. FOR FURTHER CONCERNS OR QUESTIONS, CONTACT DR. GARCIA OR DR. NUNO. Referrals: Ralf Nuno MD [Staff Provider] - Leighton Hunt MD [Staff Provider] - Hal Garcia MD [Staff Provider] -
== END 2017-08-03 11:10 | disposition home or self-care (01) | DRG 202 ==
LOC: C.ER 09:10 → C.9E 11:52 → C.5S 17:08
PROVIDERS: ADMIT Internal Medicine; ATTEND Internal Medicine
DX: J20.9 Acute bronchitis, unspecified (principal); J45.901 Unspecified asthma with (acute) exacerbation; J44.0 Chronic obstructive pulmonary disease with (acute) lower respiratory infection; E09.9 Drug or chemical induced diabetes mellitus without complications; T38.0X5A Adverse effect of glucocorticoids and synthetic analogues, initial encounter; Z87.891 Personal history of nicotine dependence

== ENCOUNTER 2017-08-15 22:10 | Observation (INO) | payer MEDICARE, BC ==
[2017-08-15 22:22] VITALS: BMI 23.1
[2017-08-15] MEDS ORDERED: Albuterol-Ipratrop 3 mg / 0.5 (3 ml) UD INH STA (23:44)
[2017-08-15 23:53] LABS: BASO # 0.2 K/uL (0.0-0.2); BASO % 1.3 % (0.0-2.0); EOS # 0.1 K/uL (0.0-0.7); EOS % 0.6 % (0.0-4.0); HEMOGLOBIN 10.1 g/dL (12.0-18.0); LYMPH # 2.4 K/uL (1.0-4.3); LYMPH % 17.4 % (20.0-40.0); MEAN CELL VOLUME 66.4 fL (80.0-94.0); MEAN CORPUSCULAR HEMOGLOBIN 20.5 pg (27.0-31.0); MEAN CORPUSCULAR HGB CONC 30.8 g/dL (33.0-37.0); MEAN PLATELET VOLUME 8.6 fL (7.2-11.7); MONO # 0.7 K/uL (0.0-0.8); MONO % 5.2 % (0.0-10.0); NEUT # 10.3 K/uL (1.8-7.0); NEUT % 75.5 % (50.0-75.0); RBC 4.93 Mil/uL (4.40-5.90); RED CELL DISTRIBUTION WIDTH 18.2 % (11.5-14.5); WHITE BLOOD COUNT 13.7 K/uL (4.8-10.8)
[2017-08-16 00:07] LABS: ALB/GLOB RATIO 1.3 (1.0-2.1); ALBUMIN 4.3 g/dL (3.5-5.0); ALT/SGPT 47 U/L (21-72); AST/SGOT 49 U/L (17-59); BLOOD UREA NITROGEN 11 mg/dL (9-20); CALCIUM 9.2 mg/dl (8.6-10.4); GFR AFRICAN-AMERICAN > 60; GFR NON-AFRICAN AMERICAN > 60
[2017-08-16] MEDS ORDERED: Albuterol 0.042% Inhal Sol (1.25 mg/3 mL) UD ONE (00:16)
[2017-08-16 00:17] LABS: B-TYPE NATRIURETIC PEPTIDE 33.9 pg/mL (0-900)
[2017-08-16] MEDS ORDERED: Sodium Chloride 0.9% 1,000 ML IV ONE (01:11)
[2017-08-16] MEDS ORDERED: Sodium Chloride 0.9% 1,000 ML ONE (02:43)
[2017-08-16 04:42] LABS: ABG ALLEN TEST POS; ARTERIAL BLOOD GAS HEMOGLOBIN 8.3 g/dL (11.7-17.4); ARTERIAL BLOOD GAS O2 SAT 100.9 % (95-98); ARTERIAL BLOOD GAS PCO2 27 mm/Hg (35-45); ARTERIAL BLOOD GAS PH 7.44 (7.35-7.45); ARTERIAL BLOOD GAS PO2 133 mm/Hg (80-100); ARTERIAL BLOOD GAS TCO2 19.1 mmol/L (22-28)
--- NOTE | 2017-08-16 04:56 | C.PDOC ---
History Of Present Illness 67 year old male with PMHx of COPD presents to the ED for evaluation of SOB for the past day. Patient reports he uses oxygen at home 2 L 24 hours a day. Patient reports he felt SOB today which prompted the visit to the ED for evaluation. Patient denies fever, chills, headache, dizziness, nausea, vomit, abdominal pain. he also feels painful irritation on the skin around the colostomy site. he wishes the colostomy to be reversed, but has not been able to coordinate with his surgeonand PMD. Time Seen by Provider: 08/15/17 22:19 Chief Complaint (Nursing): Shortness Of Breath History Per: Patient Onset/Duration Of Symptoms: Days Initiating Event: Upper Respiratory Illness Quality: "Pain" Current Respiratory Medications: See Home Med List Severity: Moderate Pain Scale Rating Of: 4 Recent travel outside of the [place]: No Additional History Per: Patient Past Medical History Reviewed: Historical Data, Nursing Documentation, Vital Signs Vital Signs: Last Vital Signs Temp 98.3 F 08/16/17 23:45 Pulse 89 08/16/17 23:45 Resp 20 08/16/17 23:45 BP 106/67 08/16/17 23:45 Pulse Ox 99 08/16/17 23:45 - Medical History PMH: Anemia, Anxiety, Arthritis, Asthma, Bronchitis, CHF, COPD (Emphysema), Diabetes, Emphysema, HTN, Hypercholesterolemia, Kidney Stones, Pneumonia, Chronic Kidney Disease, Sleep Apnea Denies: Gastritis Comment Only: Cardia Arrhythmia (tachycardic) Surgical History: No Surg Hx - [facility] Procedures ASSISTANCE WITH RESPIRATORY VENTILATION, 24-96 HRS, CPAP (07/15/17) ASSISTANCE WITH RESPIRATORY VENTILATION, <24 HRS, CPAP (07/08/16) ASSISTANCE WITH RESPIRATORY VENTILATION, >96 HRS, CPAP (05/08/17) CONTINUOUS INVASIVE MECHANICAL VENTILATION <96 CONSEC HRS (11/29/14) DILATION OF RIGHT URETER WITH INTRALUMINAL DEVICE, ENDO (03/20/17) EXCISION OF SIGMOID COLON, ENDO, DIAGN (03/20/17) EXCISION OF STOMACH, ENDO, DIAGN (03/20/17) EXCISION OF TRANSVERSE COLON, ENDO, DIAGN (03/20/17) INFLUENZA VACCINATION (06/02/14) INSERT ENDOTRACHEAL TUBE (11/29/14) LARYGNOSCOPY AND OTH TRACHEOSCOPY (04/18/15) MEASURE OF CARDIAC SAMPL & PRESSURE, L HEART, PERC APPROACH (12/01/15) NON-INVASIVE MECHANICAL VENTILATION (04/18/15) RESECTION OF SIGMOID COLON, OPEN APPROACH (03/20/17) RESPIRATORY VENTILATION, GREATER THAN 96 CONSECUTIVE HOURS (03/20/17) Family History: States: Unknown Family Hx - Social History Hx Tobacco Use: Yes (8 years ppd smoker. quit 1.5 years ago) Hx Alcohol Use: No Hx Substance Use: No - Immunization History Hx Tetanus Toxoid Vaccination: Yes Hx Influenza Vaccination: Yes Hx Pneumococcal Vaccination: Yes (12/01/2014) Review Of Systems Constitutional: Negative for: Fever, Chills Eyes: Negative for: Pain ENT: Negative for: Ear Pain Cardiovascular: Negative for: Chest Pain, Palpitations Respiratory: Positive for: Shortness of Breath. Negative for: Cough Gastrointestinal: Negative for: Nausea, Vomiting, Abdominal Pain Musculoskeletal: Negative for: Neck Pain Skin: Negative for: Rash Neurological: Negative for: Weakness, Numbness Psych: Negative for: Anxiety Physical Exam - Physical Exam Appears: Non-toxic, No Acute Distress Skin: Normal Color, Warm, Dry Head: Atraumatic, Normacephalic Eye(s): bilateral: Normal Inspection Ear(s): Bilateral: Normal Nose: No Discharge, No Deformity Oral Mucosa: Moist Tongue: Normal Appearing Lips: Normal Appearing Teeth: Normal Dentition Throat: Normal Neck: Normal ROM, Supple Chest: Symmetrical Cardiovascular: Rhythm Regular, No Murmur Respiratory: Decreased Breath Sounds, No Rales, No Rhonchi, No Wheezing Gastrointestinal/Abdominal: Soft, No Tenderness, No Guarding, No Rebound, Other (colosotmy basg in place draining stool. Skin midly irritated. ) Extremity: Normal ROM, No Pedal Edema, No Calf Tenderness, No Deformity, No Swelling Neurological/Psych: Oriented x3, Normal Speech, Normal Cognition Gait: Steady ED Course And Treatment - Laboratory Results Result Diagrams: 08/15/17 23:51 08/15/17 23:51 ECG: Interpreted By Me, Viewed By Me ECG Rhythm: Sinus Tachycardia Interpretation Of ECG: Sinus tach 132 AK 122 QRS 84 Qt 304 Qtc 450 no ischemic changes Rate From EC O2 Sat by Pulse Oximetry: 99 (On RA) Pulse Ox Interpretation: Normal - Radiology CXR: Interpreted by Me, Viewed By Me CXR Interpretation: Yes: No Acute Disease. No: Infiltrates, Cardiomegaly, Pnemothorax Medical Decision Making Medical Decision Making: Plan: * ABG * 7.4 for 43 and 40 * EKG * labs * WBC 3.18 * Hb 9.7 * K 3.3 * Urine negative , 1+ blood * CXR- no acute findings * Duoneb 6 ml INH- with some improvement of symptoms * Solumedrol 125 mg IVP * IV fluids * Nebulizer treatment * Influenza A B test neg discussed case with the surgical instrument repair specialist who evaluted the colostomy site- mildly irritated skin. He will speak to primary surgeon about scheduling colostomy reversal. Pt continues to fill subjective sob. Does not appear to be in any distress. Spoke with Dr. Garcia who is patient PMD who agreed to keep the patient for observation. Disposition Counseled Patient/Family Regarding: Diagnosis - Disposition Disposition: HOSPITALIZED Disposition Time: 01:58 Condition: GOOD - Clinical Impression Clinical Impression: COPD (chronic obstructive pulmonary disease), Respiratory acidosis, Acute respiratory distress, Abdominal pain, S/P colon resection, Colostomy complication - Scribe Statement The provider has reviewed the documentation as recorded by the Scribe Raymond Middleton All medical record entries made by the Scribe were at my direction and personally dictated by me. I have reviewed the chart and agree that the record accurately reflects my personal performance of the history, physical exam, medical decision making, and the department course for this patient. I have also personally directed, reviewed, and agree with the discharge instructions and disposition.
[2017-08-16] MEDS ORDERED: Albuterol-Ipratrop 3 mg / 0.5 (3 ml) UD ONE (05:14)
[2017-08-16] MEDS ORDERED: Albuterol-Ipratrop 3 mg / 0.5 (3 ml) UD INH STA (05:15)
[2017-08-16] MEDS ORDERED: Aluminum Hydroxide/Magnesium Hydroxide Susp (30 mL) PO PRN (05:26)
[2017-08-16] MEDS ORDERED: Magnesium Hydroxide Susp 30 ml UD PO PRN (05:26)
[2017-08-16] MEDS: Albuterol-Ipratrop 3 mg / 0.5 (3 ml) UD INH SCH ×4 (07:55→19:24)
[2017-08-16] MEDS: Fluticasone-Salmeterol 250-50mcg Diskus INH SCH ×2 (07:55→19:25)
--- NOTE | 2017-08-16 07:55 | RAD ---
HISTORY: SOB COMPARISON: Chest x-ray 07/27/2017. CT chest 08/13/2016. TECHNIQUE: Chest PA and lateral FINDINGS: LUNGS: No focal consolidation is seen. Lungs are hyperinflated with flattening of the diaphragms which can be seen in COPD. PLEURA: No pleural effusion is identified. CARDIOVASCULAR: Heart size is within normal limits. OSSEOUS STRUCTURES: Degenerative changes noted of the spine. VISUALIZED UPPER ABDOMEN: Unremarkable. OTHER FINDINGS: None. IMPRESSION: Findings suggestive of COPD. No focal consolidation seen.
[2017-08-16] MEDS ORDERED: Budesonide 0.5 mg/2 ml Inhal Susp UD IH SCH (08:00)
[2017-08-16] MEDS: (Novolog) Insulin Aspart, Recombinant 100 u/ml 10 ml vial SC SCH ×4 (08:10→21:45)
[2017-08-16] MEDS: Multivitamin With Minerals Tab PO SCH (09:47)
[2017-08-16] MEDS: Enoxaparin 40 mg Syringe SC SCH (09:47)
--- NOTE | 2017-08-16 14:01 | CARD ---
APPROVED REPORT EKG Measurement Heart [id number] <Conclusion> Sinus tachycardia with premature atrial complexes Otherwise normal ECG
[2017-08-16] MEDS: Budesonide 0.5 mg/2 ml Inhal Susp UD IH SCH (19:24)
[2017-08-16] MEDS: MethylPREDNISolone 40 mg Vial IVP SCH (21:29)
[2017-08-16] MEDS: Promethazine/Cod 6.25mg-10mg/5ml Syr UD PO PRN (21:36)
--- NOTE | 2017-08-16 23:16 | CP.PCM.HP ---
History of Present Illness - History of Present Illness History of Present Illness: CC: Shortness of breath HPI: 67 year old male with PMHx of COPD , previous recurrent hospitalizations presents to the ED for evaluation of SOB for the past day. Patient reports he uses oxygen at home 2 L 24 hours a day. Patient reports he felt SOB today which prompted the visit to the ED for evaluation. Patient denies fever, chills, headache, dizziness, nausea, vomit, abdominal pain Present on Admission - Present on Admission Any Indicators Present on Admission: Yes Review of Systems - Review of Systems Systems not reviewed;Unavailable: Acuity of Condition - Constitutional Constitutional: Fatigue, Lethargy, Malaise - EENT Eyes: absent: As Per HPI, Blind Spots, Blurred Vision, Change in Vision, Decreased Night Vision, Diplopia, Discharge, Dry Eye, Exophthalmos, Floaters, Irritation, Itchy Eyes, Loss of Peripheral Vision, Pain, Photophobia, Requires Corrective Lenses, Sees Flashes, Spots in Vision, Tunnel Vision, Other Visual Disturbances, Loss of Vision, Other - Cardiovascular Cardiovascular: absent: As Per HPI, Acrocyanosis, Chest Pain, Chest Pain at Rest , Chest Pain with Activity, Claudication, Diaphoresis, Dyspnea, Dyspnea on Exertion, Edema, Irregular Heart Rhythm, Pain Radiating to Arm/Neck/Jaw, Leg Edema, Leg Ulcers, Lightheadedness, Orthopnea, Palpitations, Paroxysmal Nocturnal Dyspnea, Pedal Edema, Radiating Pain, Rapid Heart Rate, Slow Heart Rate, Syncope, Other - Respiratory Respiratory: Cough, Dyspnea - Gastrointestinal Additional comments: ileostomy - Genitourinary Genitourinary: absent: As Per HPI, Change in Urinary Stream, Difficulty Urinating, Dysuria, Flank Pain, Hematuria, Pyuria, Nocturia, Urinary Incontinence, Urinary Frequency, Urinary Hesitance, Urinary Urgency, Voiding Freq/Small Amts, Freq UTI, Hx Renal/Bladder Calculi, Hx /Renal Surgery, Bladder Distension, Other Past Patient History - Infectious Disease Hx of Infectious Diseases: None - Past Medical History & Family History Past Medical History?: Yes - Past Social History Smoking Status: Former Smoker - CARDIAC Hx Cardiac Disorders: Yes Hx Cardia Arrhythmia: (tachycardic) Hx Congestive Heart Failure: Yes Hx Hypercholesterolemia: Yes Hx Hypertension: Yes - PULMONARY Hx Respiratory Disorders: Yes Hx Asthma: Yes Hx Bronchitis: Yes Hx Chronic Obstructive Pulmonary Disease (COPD): Yes (Emphysema) Hx Emphysema: Yes Hx Pneumonia: Yes Hx Sleep Apnea: Yes - NEUROLOGICAL Hx Neurological Disorder: No - HEENT Hx HEENT Problems: Yes Hx Cataracts: Yes (left cataract removed, r cataract) Other/Comment: wears eyeglasses for distance - RENAL Hx Chronic Kidney Disease: Yes Hx Kidney Stones: Yes - ENDOCRINE/METABOLIC Hx Endocrine Disorders: Yes Hx Diabetes Mellitus Type 2: Yes - HEMATOLOGICAL/ONCOLOGICAL Hx Anemia: Yes - INTEGUMENTARY Hx Dermatological Problems: No - MUSCULOSKELETAL/RHEUMATOLOGICAL Hx Arthritis: Yes Hx Falls: No - GASTROINTESTINAL Hx Gastritis: No - PSYCHIATRIC Hx Anxiety: Yes Hx Substance Use: No - SURGICAL HISTORY Hx Surgeries: Yes Hx Cardiac Catheterization: Yes (11/2015) Other/Comment: colon resection with right ileostomy - ANESTHESIA Hx Anesthesia: Yes Hx Anesthesia Reactions: No Hx Malignant Hyperthermia: No Has any member of the family had a problem w/ anesthesia?: No Meds Allergies/Adverse Reactions: Allergies Allergy/AdvReac Type Severity Reaction Status Date / Time acetaminophen [From Tylenol] Allergy RASH Verified 08/15/17 22:22 FISH Allergy SWELLING Verified 08/15/17 22:22 shrimp Allergy SHORTNESS Verified 08/15/17 22:22 OF BREATH IV dye Allergy Severe ANAPHYLAXIS Uncoded 08/15/17 22:22 Physical Exam - Constitutional Appears: Chronically Ill Additional comments: moderate resp distress - Eye Exam Eye Exam: EOMI, Normal appearance, PERRL Pupil Exam: NORMAL ACCOMODATION, PERRL - Respiratory Exam Respiratory Exam: Accessory Muscle Use, Decreased Breath Sounds, Rales, NORMAL BREATHING PATTERN - Cardiovascular Exam Cardiovascular Exam: REGULAR RHYTHM - GI/Abdominal Exam GI & Abdominal Exam: Normal Bowel Sounds, Soft. absent: Tenderness - Skin Additional comments: thin skin bruises Results - Vital Signs Recent Vital Signs: Last Vital Signs Temp 97.6 F 08/16/17 16:00 Pulse 108 H 08/16/17 16:00 Resp 20 08/16/17 16:00 BP 111/68 08/16/17 16:00 Pulse Ox 100 08/16/17 16:00 - Labs Result Diagrams: 08/15/17 23:51 08/15/17 23:51 Labs: Laboratory Results - last 24 hr 08/15/17 08/15/17 08/16/17 23:51 23:51 00:25 WBC 13.7 H RBC 4.93 Hgb 10.1 L Hct 32.7 L MCV 66.4 L MCH 20.5 L MCHC 30.8 L RDW 18.2 H Plt Count 328 MPV 8.6 Neut % (Auto) 75.5 H Lymph % (Auto) 17.4 L [place] % (Auto) 5.2 Eos % (Auto) 0.6 Baso % (Auto) 1.3 Neut # 10.3 H Lymph # 2.4 [place] # 0.7 Eos # 0.1 Baso # 0.2 Puncture Site pCO2 pO2 HCO3 ABG pH ABG Total CO2 ABG O2 Saturation ABG Base Excess ABG Hemoglobin ABG Carboxyhemoglobin POC ABG HHb (Measured) ABG Methemoglobin Jesus Test Hgb O2 Saturation Liter Flow Sodium 133 Potassium 4.6 Chloride 95 L Carbon Dioxide 26 Anion Gap 17 BUN 11 Creatinine 0.7 L Est GFR ( Amer) > 60 Est GFR (Non-Af Amer) > 60 POC Glucose (mg/dL) Random Glucose 115 H Calcium 9.2 Magnesium 2.0 Total Bilirubin 0.6 AST 49 ALT 47 Alkaline Phosphatase 138 H Troponin I < 0.0120 NT-Pro-B Natriuret Pep 33.9 Total Protein 7.6 Albumin 4.3 Globulin 3.3 Albumin/Globulin Ratio 1.3 Influenza Typ A,B (EIA) Negative for flu a/b 08/16/17 08/16/17 08/16/17 04:30 06:59 10:59 WBC RBC Hgb Hct MCV MCH MCHC RDW Plt Count MPV Neut % (Auto) Lymph % (Auto) [place] % (Auto) Eos % (Auto) Baso % (Auto) Neut # Lymph # [place] # Eos # Baso # Puncture Site Rr pCO2 27 L pO2 133 H HCO3 21.0 ABG pH 7.44 ABG Total CO2 19.1 L ABG O2 Saturation 100.9 H ABG Base Excess -5.1 L ABG Hemoglobin 8.3 L ABG Carboxyhemoglobin 2.6 H POC ABG HHb (Measured) -0.9 L ABG Methemoglobin 1.0 Jesus Test Pos Hgb O2 Saturation 97.3 Liter Flow 3.0 Sodium Potassium Chloride Carbon Dioxide Anion Gap BUN Creatinine Est GFR ( Amer) Est GFR (Non-Af Amer) POC Glucose (mg/dL) 284 H 312 H Random Glucose Calcium Magnesium Total Bilirubin AST ALT Alkaline Phosphatase Troponin I NT-Pro-B Natriuret Pep Total Protein Albumin Globulin Albumin/Globulin Ratio Influenza Typ A,B (EIA) 08/16/17 08/16/17 16:54 21:04 WBC RBC Hgb Hct MCV MCH MCHC RDW Plt Count MPV Neut % (Auto) Lymph % (Auto) [place] % (Auto) Eos % (Auto) Baso % (Auto) Neut # Lymph # [place] # Eos # Baso # Puncture Site pCO2 pO2 HCO3 ABG pH ABG Total CO2 ABG O2 Saturation ABG Base Excess ABG Hemoglobin ABG Carboxyhemoglobin POC ABG HHb (Measured) ABG Methemoglobin Jesus Test Hgb O2 Saturation Liter Flow Sodium Potassium Chloride Carbon Dioxide Anion Gap BUN Creatinine Est GFR ( Amer) Est GFR (Non-Af Amer) POC Glucose (mg/dL) 303 H 164 H Random Glucose Calcium Magnesium Total Bilirubin AST ALT Alkaline Phosphatase Troponin I NT-Pro-B Natriuret Pep Total Protein Albumin Globulin Albumin/Globulin Ratio Influenza Typ A,B (EIA) Assessment & Plan (1) Acute bronchitis with asthma with acute exacerbation Status: Acute (2) COPD (chronic obstructive pulmonary disease) Status: Acute (3) Respiratory distress Status: Acute (4) S/P colon resection Status: Acute (5) Allergic rhinitis Status: Chronic Priority: Medium (6) PUNEET (generalized anxiety disorder) Status: Chronic (7) Steroid-induced diabetes Status: Chronic
[2017-08-17] MEDS: Albuterol-Ipratrop 3 mg / 0.5 (3 ml) UD INH SCH ×4 (07:19→22:21)
[2017-08-17] MEDS: Fluticasone-Salmeterol 250-50mcg Diskus INH SCH ×2 (07:19→22:21)
[2017-08-17] MEDS: Budesonide 0.5 mg/2 ml Inhal Susp UD IH SCH ×2 (07:19→22:20)
[2017-08-17] MEDS: (Novolog) Insulin Aspart, Recombinant 100 u/ml 10 ml vial SC SCH ×4 (08:04→22:44)
[2017-08-17] MEDS: Multivitamin With Minerals Tab PO SCH (09:10)
[2017-08-17] MEDS: Enoxaparin 40 mg Syringe SC SCH (09:10)
[2017-08-17] MEDS: MethylPREDNISolone 40 mg Vial IVP SCH ×2 (09:10→22:43)
--- NOTE | 2017-08-17 10:24 | CP.PCM.CON ---
History of Present Illness - History of Present Illness History of Present Illness: Patient is a 67 year old male with history of advanced COPD, on 2L of oxygen daily, steroid-induced DM, obstructive sleep apnea, colon cancer s/p LAR with ileostomy, who was admitted for evaluation of shortness of breath. He reportedly uses 2L of oxygen 24 hours a day. Today, he states he is feeling well and does not appear to be in respiratory distress. He states he would like to have his ileostomy reversed while he is hospitalized. He denies fever, chills , headache, dizziness, nausea, vomiting, abdominal pain. PMH: COPD, anxiety, obstructive sleep apnea, colon cancer s/p colostomy, steroid induced DM, allergic rhinitis. PSH: LAR with ileostomy 03/27/17, cardiac cath without stents Allergies: Acetaminophen, fish, shrimp, IV dye. PE: no breath sounds~ Assessment and plan~ 67 year old male with history of advanced COPD, chronic respiratory failure, anxiety, obstructive sleep apnea, colon cancer with ileostomy who was~admitted on 08/16/17 for shortness of breath. Advanced COPD Given history of advanced COPD and multiple intubations, patient is high risk for procedure Continue present treatment - Albuterol/Tiotropium 3cc INH - Pulmicort 1mg INH BID - Solumedrol 40mg IVP Q 12 hours - Singulair 10mg PO HS - Advair 1 puff INH Q 12 - Phenergan with codeine 5ml PO q8 hours Past Patient History - Infectious Disease Hx of Infectious Diseases: None - Past Medical History & Family History Past Medical History?: Yes - Past Social History Smoking Status: Former Smoker - CARDIAC Hx Cardia Arrhythmia: (tachycardic) Hx Congestive Heart Failure: Yes Hx Hypercholesterolemia: Yes Hx Hypertension: Yes - PULMONARY Hx Asthma: Yes Hx Bronchitis: Yes Hx Chronic Obstructive Pulmonary Disease (COPD): Yes (Emphysema) Hx Emphysema: Yes Hx Pneumonia: Yes Hx Sleep Apnea: Yes - NEUROLOGICAL Hx Neurological Disorder: No - HEENT Hx HEENT Problems: Yes Hx Cataracts: Yes (left cataract removed, r cataract) Other/Comment: wears eyeglasses for distance - RENAL Hx Chronic Kidney Disease: Yes Hx Kidney Stones: Yes - ENDOCRINE/METABOLIC Hx Endocrine Disorders: Yes Hx Diabetes Mellitus Type 2: Yes - HEMATOLOGICAL/ONCOLOGICAL Hx Anemia: Yes - INTEGUMENTARY Hx Dermatological Problems: No - MUSCULOSKELETAL/RHEUMATOLOGICAL Hx Arthritis: Yes - GASTROINTESTINAL Hx Gastritis: No - PSYCHIATRIC Hx Anxiety: Yes Hx Substance Use: No - SURGICAL HISTORY Hx Surgeries: Yes Hx Cardiac Catheterization: Yes (11/2015) Other/Comment: colon resection with right ileostomy - ANESTHESIA Hx Anesthesia: Yes Hx Anesthesia Reactions: No Hx Malignant Hyperthermia: No Has any member of the family had a problem w/ anesthesia?: No Meds Allergies/Adverse Reactions: Allergies Allergy/AdvReac Type Severity Reaction Status Date / Time acetaminophen [From Tylenol] Allergy RASH Verified 08/15/17 22:22 FISH Allergy SWELLING Verified 08/15/17 22:22 shrimp Allergy SHORTNESS Verified 08/15/17 22:22 OF BREATH IV dye Allergy Severe ANAPHYLAXIS Uncoded 08/15/17 22:22 - Medications Medications: Current Medications Al Hydrox/Mg Hydrox/Simethicone (Maalox 30 Ml) 30 ml PO Q6H PRN PRN Reason: Indigestion / Heartburn Albuterol/Ipratropium (Duoneb 3 Mg/0.5 Mg (3 Ml) Ud) 3 ml INH RQID [facility] Last Admin: 08/17/17 07:19 Dose: 3 ml Alprazolam (Xanax) 0.5 mg PO BID [facility] Stop: 08/23/17 10:01 Last Admin: 08/17/17 09:10 Dose: 0.5 mg Budesonide (Pulmicort Respules) 1 mg IH RQ12 [facility] Last Admin: 08/17/17 07:19 Dose: 0.5 mg Enoxaparin Sodium (Lovenox) 40 mg SC DAILY [facility] Last Admin: 08/17/17 09:10 Dose: 40 mg Insulin Aspart (Novolog) 0 unit SC ACHS [facility] PRN Reason: Protocol Last Admin: 08/17/17 08:04 Dose: 2 unit Magnesium Hydroxide (Milk Of Magnesia) 30 ml PO DAILY PRN PRN Reason: Constipation Metformin HCl (Glucophage) 1,000 mg PO BID [facility] Last Admin: 08/17/17 09:10 Dose: 1,000 mg Methylprednisolone (Solu-Medrol) 40 mg IVP Q12 [facility] Last Admin: 08/17/17 09:10 Dose: 40 mg Montelukast Sodium (Singulair) 10 mg PO HS [facility] Last Admin: 08/16/17 21:30 Dose: 10 mg Multivitamins/Minerals (Therapeutic-M Tab) 1 tab PO DAILY [facility] Last Admin: 08/17/17 09:10 Dose: 1 tab Pregabalin (Lyrica) 50 mg PO BID [facility] Last Admin: 08/17/17 09:10 Dose: 50 mg Promethazine HCl/Codeine (Phenergan/Codeine Oral Syrup) 5 ml PO Q8 PRN PRN Reason: Cough Last Admin: 08/16/17 21:36 Dose: 5 ml Fluticasone/Salmeterol (Advair Diskus 250/50) 1 puff INH RQ12 [facility] Last Admin: 08/17/17 07:19 Dose: 1 puff Results - Vital Signs Recent Vital Signs: Last Vital Signs Temp 97 F L 08/17/17 07:00 Pulse 90 08/17/17 07:21 Resp 20 08/17/17 07:00 BP 104/68 08/17/17 07:00 Pulse Ox 100 08/17/17 07:00 - Labs Result Diagrams: 08/15/17 23:51 08/15/17 23:51 Labs: Laboratory Results - last 24 hr 08/16/17 08/16/17 08/16/17 10:59 16:54 21:04 POC Glucose (mg/dL) 312 H 303 H 164 H 08/17/17 06:40 POC Glucose (mg/dL) 227 H
--- NOTE | 2017-08-17 13:00 | CP.PCM.PN ---
Subjective - Date & Time of Evaluation Date of Evaluation: 08/17/17 Time of Evaluation: 12:59 - Subjective Subjective: needs fu colonoscopy prior to closure of ileostomy. I deally he would be off steroids at time of closure Objective - Vital Signs/Intake and Output Vital Signs (last 24 hours): Temp Pulse Resp BP Pulse Ox 97 F L 90 20 104/68 100 08/17/17 07:00 08/17/17 07:21 08/17/17 07:00 08/17/17 07:00 08/17/17 07:00 Intake and Output: 08/17/17 08/17/17 06:59 18:59 Intake Total 120 Balance 120 - Medications Medications: Current Medications Al Hydrox/Mg Hydrox/Simethicone (Maalox 30 Ml) 30 ml PO Q6H PRN PRN Reason: Indigestion / Heartburn Albuterol/Ipratropium (Duoneb 3 Mg/0.5 Mg (3 Ml) Ud) 3 ml INH RQID [facility] Last Admin: 08/17/17 11:50 Dose: 3 ml Alprazolam (Xanax) 0.5 mg PO BID [facility] Stop: 08/23/17 10:01 Last Admin: 08/17/17 09:10 Dose: 0.5 mg Budesonide (Pulmicort Respules) 1 mg IH RQ12 [facility] Last Admin: 08/17/17 07:19 Dose: 0.5 mg Enoxaparin Sodium (Lovenox) 40 mg SC DAILY [facility] Last Admin: 08/17/17 09:10 Dose: 40 mg Insulin Aspart (Novolog) 0 unit SC ACHS [facility] PRN Reason: Protocol Last Admin: 08/17/17 12:08 Dose: 2 unit Magnesium Hydroxide (Milk Of Magnesia) 30 ml PO DAILY PRN PRN Reason: Constipation Metformin HCl (Glucophage) 1,000 mg PO BID [facility] Last Admin: 08/17/17 09:10 Dose: 1,000 mg Methylprednisolone (Solu-Medrol) 40 mg IVP Q12 [facility] Last Admin: 08/17/17 09:10 Dose: 40 mg Montelukast Sodium (Singulair) 10 mg PO HS [facility] Last Admin: 08/16/17 21:30 Dose: 10 mg Multivitamins/Minerals (Therapeutic-M Tab) 1 tab PO DAILY [facility] Last Admin: 08/17/17 09:10 Dose: 1 tab Pregabalin (Lyrica) 50 mg PO BID [facility] Last Admin: 08/17/17 09:10 Dose: 50 mg Promethazine HCl/Codeine (Phenergan/Codeine Oral Syrup) 5 ml PO Q8 PRN PRN Reason: Cough Last Admin: 08/16/17 21:36 Dose: 5 ml Fluticasone/Salmeterol (Advair Diskus 250/50) 1 puff INH RQ12 [facility] Last Admin: 08/17/17 07:19 Dose: 1 puff - Labs Labs: 08/15/17 23:51 08/15/17 23:51
--- NOTE | 2017-08-17 13:04 | CP.PCM.CON ---
History of Present Illness - History of Present Illness History of Present Illness: Asked by Dr. Garcia for a GI consultation on this patient. 67 year old male with history of COPD, CHF, HTN, DM who presents to hospital with complaint of progressive dyspnea on exertion and is currently being treated for COPD exacerbation. He carries a history of chronic anemia and underwent colonoscopy in March 2017 which revealed a large obstructing sigmoid polypoid lesion s/p surgical LAR and ileostomy by Dr. Mai. 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 He currently endorses intermittent pain at ostomy site but otherwise denies nausea, vomiting, fever/ chills, weight loss, or bloody output in ostomy. He is tolerating PO diet without difficulty. Review of vitals from today are normal. Social history: +smoker, no ETOH use Family history: reviewed, denies history of colon or other GI cancers Review of Systems - Review of Systems Review of Systems: - All other comprehensive 12 point review of systems performed, negative - Cardiovascular Cardiovascular: absent: Acrocyanosis, Chest Pain, Chest Pain at Rest, Chest Pain with Activity, Claudication, Diaphoresis, Dyspnea, Dyspnea on Exertion, Edema, Irregular Heart Rhythm, Pain Radiating to Arm/Neck/Jaw, Leg Edema, Leg Ulcers, Lightheadedness, Orthopnea, Palpitations, Paroxysmal Nocturnal Dyspnea, Pedal Edema, Radiating Pain, Rapid Heart Rate, Slow Heart Rate, Syncope, Other - Respiratory Respiratory: Dyspnea on Exertion - Gastrointestinal Gastrointestinal: Abdominal Pain - Musculoskeletal Musculoskeletal: absent: Abnormal Gait, Arthralgias, Atrophy, Back Pain, Deformity, Joint Swelling, Limited Range of Motion, Loss of Height, Muscle Cramps, Muscle Weakness, Myalgias, Neck Pain, Numbness, Radiating Pain into Limb , Stiffness, Tingling, Other - Neurological Neurological: absent: Abnormal Gait, Abnormal Hearing, Abnormal Movements, Abnormal Speech, Behavioral Changes, Burning Sensations, Confusion, Convulsions , Disequilibrium, Dizziness, Numbness, Focal Weakness, Frequent Falls, Headaches , Lack of Coordination, Loss of Vision, Memory Loss, Paresthesias, Radicular Pain, Restless Legs, Sensory Deficit, Syncope, Tingling, Tremor, Vertigo, Weakness, Other Visual Disturbances, Other Past Patient History - Infectious Disease Hx of Infectious Diseases: None - Past Medical History & Family History Past Medical History?: Yes - Past Social History Smoking Status: Former Smoker - CARDIAC Hx Cardia Arrhythmia: (tachycardic) Hx Congestive Heart Failure: Yes Hx Hypercholesterolemia: Yes Hx Hypertension: Yes - PULMONARY Hx Asthma: Yes Hx Bronchitis: Yes Hx Chronic Obstructive Pulmonary Disease (COPD): Yes (Emphysema) Hx Emphysema: Yes Hx Pneumonia: Yes Hx Sleep Apnea: Yes - NEUROLOGICAL Hx Neurological Disorder: No - HEENT Hx HEENT Problems: Yes Hx Cataracts: Yes (left cataract removed, r cataract) Other/Comment: wears eyeglasses for distance - RENAL Hx Chronic Kidney Disease: Yes Hx Kidney Stones: Yes - ENDOCRINE/METABOLIC Hx Endocrine Disorders: Yes Hx Diabetes Mellitus Type 2: Yes - HEMATOLOGICAL/ONCOLOGICAL Hx Anemia: Yes - INTEGUMENTARY Hx Dermatological Problems: No - MUSCULOSKELETAL/RHEUMATOLOGICAL Hx Arthritis: Yes - GASTROINTESTINAL Hx Gastritis: No - PSYCHIATRIC Hx Anxiety: Yes Hx Substance Use: No - SURGICAL HISTORY Hx Surgeries: Yes Hx Cardiac Catheterization: Yes (11/2015) Other/Comment: colon resection with right ileostomy - ANESTHESIA Hx Anesthesia: Yes Hx Anesthesia Reactions: No Hx Malignant Hyperthermia: No Has any member of the family had a problem w/ anesthesia?: No Meds Allergies/Adverse Reactions: Allergies Allergy/AdvReac Type Severity Reaction Status Date / Time acetaminophen [From Tylenol] Allergy RASH Verified 08/15/17 22:22 FISH Allergy SWELLING Verified 08/15/17 22:22 shrimp Allergy SHORTNESS Verified 08/15/17 22:22 OF BREATH IV dye Allergy Severe ANAPHYLAXIS Uncoded 08/15/17 22:22 - Medications Medications: Current Medications Al Hydrox/Mg Hydrox/Simethicone (Maalox 30 Ml) 30 ml PO Q6H PRN PRN Reason: Indigestion / Heartburn Albuterol/Ipratropium (Duoneb 3 Mg/0.5 Mg (3 Ml) Ud) 3 ml INH RQID [facility] Last Admin: 08/17/17 11:50 Dose: 3 ml Alprazolam (Xanax) 0.5 mg PO BID [facility] Stop: 08/23/17 10:01 Last Admin: 08/17/17 09:10 Dose: 0.5 mg Budesonide (Pulmicort Respules) 1 mg IH RQ12 [facility] Last Admin: 08/17/17 07:19 Dose: 0.5 mg Enoxaparin Sodium (Lovenox) 40 mg SC DAILY [facility] Last Admin: 08/17/17 09:10 Dose: 40 mg Insulin Aspart (Novolog) 0 unit SC ACHS [facility] PRN Reason: Protocol Last Admin: 08/17/17 12:08 Dose: 2 unit Magnesium Hydroxide (Milk Of Magnesia) 30 ml PO DAILY PRN PRN Reason: Constipation Metformin HCl (Glucophage) 1,000 mg PO BID [facility] Last Admin: 08/17/17 09:10 Dose: 1,000 mg Methylprednisolone (Solu-Medrol) 40 mg IVP Q12 [facility] Last Admin: 08/17/17 09:10 Dose: 40 mg Montelukast Sodium (Singulair) 10 mg PO HS [facility] Last Admin: 08/16/17 21:30 Dose: 10 mg Multivitamins/Minerals (Therapeutic-M Tab) 1 tab PO DAILY [facility] Last Admin: 08/17/17 09:10 Dose: 1 tab Pregabalin (Lyrica) 50 mg PO BID [facility] Last Admin: 08/17/17 09:10 Dose: 50 mg Promethazine HCl/Codeine (Phenergan/Codeine Oral Syrup) 5 ml PO Q8 PRN PRN Reason: Cough Last Admin: 08/16/17 21:36 Dose: 5 ml Fluticasone/Salmeterol (Advair Diskus 250/50) 1 puff INH RQ12 [facility] Last Admin: 08/17/17 07:19 Dose: 1 puff Physical Exam - Constitutional Appears: Non-toxic, No Acute Distress - Head Exam Head Exam: NORMAL INSPECTION - Eye Exam Eye Exam: EOMI, Normal appearance - ENT Exam ENT Exam: Mucous Membranes Moist - Respiratory Exam Respiratory Exam: Wheezes - Cardiovascular Exam Cardiovascular Exam: REGULAR RHYTHM, +S1, +S2 - GI/Abdominal Exam GI & Abdominal Exam: Normal Bowel Sounds, Soft Additional comments: non tender to palpation in four quadrants RLQ ileostomy present with soft green stool in bag no palpable hepato/splenomegaly midline surgical scar present - Extremities Exam Extremities exam: Positive for: normal inspection - Neurological Exam Neurological exam: Alert, CN II-XII Intact, Oriented x3, Reflexes Normal - Psychiatric Exam Psychiatric exam: Normal Affect, Normal Mood - Skin Skin Exam: Dry, Intact, Normal Color, Warm Results - Vital Signs Recent Vital Signs: Last Vital Signs Temp 97 F L 08/17/17 07:00 Pulse 90 08/17/17 07:21 Resp 20 08/17/17 07:00 BP 104/68 08/17/17 07:00 Pulse Ox 100 08/17/17 07:00 - Labs Result Diagrams: 08/15/17 23:51 08/15/17 23:51 Labs: Laboratory Results - last 24 hr 08/16/17 08/16/17 08/17/17 16:54 21:04 06:40 POC Glucose (mg/dL) 303 H 164 H 227 H 08/17/17 11:34 POC Glucose (mg/dL) 240 H Assessment & Plan - Assessment and Plan (Free Text) Assessment: HTN COPD - acute exacerbation CHF DM Prior history of colon cancer s/p LAR with ileostomy Plan: - Diet as tolerated - H/H stable, continue to monitor - Follow up pulmonary recommendations regarding COPD disease exacerbation management - Patient would benefit from colonoscopy prior to consideration of ileostomy reversal, however this should be performed electively as outpatient following resolution of acute pulmonary symptoms. Patient scheduled for office visit next week to discuss further plan. Will sign off case, please reconsult as necessary, thank you.
[2017-08-17] MEDS: Promethazine/Cod 6.25mg-10mg/5ml Syr UD PO PRN (22:44)
--- NOTE | 2017-08-17 22:53 | CP.PCM.PN ---
Subjective - Date & Time of Evaluation Date of Evaluation: 08/17/17 Time of Evaluation: 18:30 - Subjective Subjective: Pt seen and evaluated, is less short of breath, he needs out pt stress test Objective - Vital Signs/Intake and Output Vital Signs (last 24 hours): Temp Pulse Resp BP Pulse Ox 97.3 F L 100 H 18 103/75 100 08/17/17 15:19 08/17/17 16:32 08/17/17 15:19 08/17/17 15:19 08/17/17 15:19 - Medications Medications: Current Medications Al Hydrox/Mg Hydrox/Simethicone (Maalox 30 Ml) 30 ml PO Q6H PRN PRN Reason: Indigestion / Heartburn Albuterol/Ipratropium (Duoneb 3 Mg/0.5 Mg (3 Ml) Ud) 3 ml INH RQID [facility] Last Admin: 08/17/17 22:21 Dose: 3 ml Alprazolam (Xanax) 0.5 mg PO BID [facility] Stop: 08/23/17 10:01 Last Admin: 08/17/17 18:46 Dose: 0.5 mg Budesonide (Pulmicort Respules) 1 mg IH RQ12 [facility] Last Admin: 08/17/17 22:20 Dose: 0.5 mg Enoxaparin Sodium (Lovenox) 40 mg SC DAILY [facility] Last Admin: 08/17/17 09:10 Dose: 40 mg Insulin Aspart (Novolog) 0 unit SC ACHS [facility] PRN Reason: Protocol Last Admin: 08/17/17 22:44 Dose: Not Given Magnesium Hydroxide (Milk Of Magnesia) 30 ml PO DAILY PRN PRN Reason: Constipation Metformin HCl (Glucophage) 1,000 mg PO BID [facility] Last Admin: 08/17/17 18:46 Dose: 1,000 mg Methylprednisolone (Solu-Medrol) 40 mg IVP Q12 [facility] Last Admin: 08/17/17 22:43 Dose: 40 mg Montelukast Sodium (Singulair) 10 mg PO HS [facility] Last Admin: 08/17/17 22:44 Dose: 10 mg Multivitamins/Minerals (Therapeutic-M Tab) 1 tab PO DAILY [facility] Last Admin: 08/17/17 09:10 Dose: 1 tab Pregabalin (Lyrica) 50 mg PO BID [facility] Last Admin: 08/17/17 18:46 Dose: 50 mg Promethazine HCl/Codeine (Phenergan/Codeine Oral Syrup) 5 ml PO Q8 PRN PRN Reason: Cough Last Admin: 08/17/17 22:44 Dose: 5 ml Fluticasone/Salmeterol (Advair Diskus 250/50) 1 puff INH RQ12 [facility] Last Admin: 08/17/17 22:21 Dose: 1 puff - Labs Labs: 08/15/17 23:51 08/15/17 23:51 - Constitutional Appears: No Acute Distress - Head Exam Head Exam: ATRAUMATIC, NORMAL INSPECTION, NORMOCEPHALIC - Eye Exam Eye Exam: EOMI, Normal appearance, PERRL Pupil Exam: NORMAL ACCOMODATION, PERRL - Respiratory Exam Respiratory Exam: Decreased Breath Sounds, Rhonchi, Wheezes - Cardiovascular Exam Cardiovascular Exam: REGULAR RHYTHM, +S1, +S2. absent: Murmur - GI/Abdominal Exam GI & Abdominal Exam: Soft, Normal Bowel Sounds. absent: Tenderness Assessment and Plan (1) Acute bronchitis with asthma with acute exacerbation Status: Acute (2) COPD (chronic obstructive pulmonary disease) Status: Acute (3) Respiratory distress Status: Acute (4) S/P colon resection Status: Acute (5) Allergic rhinitis Status: Chronic (6) PUNEET (generalized anxiety disorder) Status: Chronic (7) Steroid-induced diabetes Status: Chronic
[2017-08-18 01:36] VITALS: RESP 20; TEMP 97.4
[2017-08-18] MEDS: Albuterol-Ipratrop 3 mg / 0.5 (3 ml) UD INH SCH ×2 (07:30→11:20)
[2017-08-18] MEDS: Budesonide 0.5 mg/2 ml Inhal Susp UD IH SCH (07:30)
[2017-08-18 07:58] LABS: BASO % 0.2 % (0.0-2.0); HEMOGLOBIN 9.4 g/dL (12.0-18.0); LYMPH # 0.9 K/uL (1.0-4.3); LYMPH % 8.5 % (20.0-40.0); MEAN CELL VOLUME 65.9 fL (80.0-94.0); MEAN CORPUSCULAR HEMOGLOBIN 20.8 pg (27.0-31.0); MEAN CORPUSCULAR HGB CONC 31.5 g/dL (33.0-37.0); MEAN PLATELET VOLUME 8.4 fL (7.2-11.7); MONO # 0.4 K/uL (0.0-0.8); MONO % 3.8 % (0.0-10.0); NEUT # 9.2 K/uL (1.8-7.0); NEUT % 87.5 % (50.0-75.0); PLATELET COUNT 293 K/uL (130-400); RBC 4.52 Mil/uL (4.40-5.90); WHITE BLOOD COUNT 10.5 K/uL (4.8-10.8)
[2017-08-18] MEDS: Fluticasone-Salmeterol 250-50mcg Diskus INH SCH (08:00)
[2017-08-18] MEDS: (Novolog) Insulin Aspart, Recombinant 100 u/ml 10 ml vial SC SCH ×2 (08:14→12:55)
[2017-08-18 08:30] LABS: BLOOD UREA NITROGEN 14 mg/dL (9-20); CALCIUM 8.5 mg/dl (8.6-10.4); GFR AFRICAN-AMERICAN > 60; GFR NON-AFRICAN AMERICAN > 60
[2017-08-18 09:26] VITALS: BP 110/76; PULSE 81; O2SAT 100
[2017-08-18] MEDS ORDERED: Pneumococcal 23-Valent Vaccine IM ONE (10:00)
[2017-08-18] MEDS: Enoxaparin 40 mg Syringe SC SCH (10:16)
[2017-08-18] MEDS: Multivitamin With Minerals Tab PO SCH (10:16)
[2017-08-18] MEDS: MethylPREDNISolone 40 mg Vial IVP SCH (10:17)
[2017-08-18 11:16] LABS: BANDS 1 % (0-2); TOTAL CELLS COUNTED 100
[2017-08-18 11:17] LABS: ANISOCYTOSIS SLIGHT; HYPOCHROMIC SLIGHT; LYMPHOCYTE 8 % (20-40); MONOCYTE 5 % (0-10); NEUTROPHIL 86 % (50-75); OVALOCYTES MODERATE; PLATELET ESTIMATE NORMAL (NORMAL); POIKILOCYTOSIS SLIGHT
[2017-08-18 11:18] LABS: MICROCYTOSIS MODERATE; SCHISTOCYTES SLIGHT; TEARDROP CELLS SLIGHT
--- NOTE | 2017-08-18 13:41 | CP.PCM.PN ---
Subjective - Date & Time of Evaluation Date of Evaluation: 08/18/17 Time of Evaluation: 10:30 Objective - Vital Signs/Intake and Output Vital Signs (last 24 hours): Temp Pulse Resp BP Pulse Ox 97.4 F L 81 20 110/76 100 08/18/17 09:24 08/18/17 09:24 08/18/17 09:24 08/18/17 09:24 08/18/17 09:24 Intake and Output: 08/18/17 08/18/17 06:59 18:59 Intake Total 240 Balance 240 - Medications Medications: Current Medications Al Hydrox/Mg Hydrox/Simethicone (Maalox 30 Ml) 30 ml PO Q6H PRN PRN Reason: Indigestion / Heartburn Albuterol/Ipratropium (Duoneb 3 Mg/0.5 Mg (3 Ml) Ud) 3 ml INH RQID [facility] Last Admin: 08/18/17 11:20 Dose: 3 ml Alprazolam (Xanax) 0.5 mg PO BID [facility] Stop: 08/23/17 10:01 Last Admin: 08/18/17 10:16 Dose: 0.5 mg Budesonide (Pulmicort Respules) 1 mg IH RQ12 [facility] Last Admin: 08/18/17 07:30 Dose: 1 mg Enoxaparin Sodium (Lovenox) 40 mg SC DAILY [facility] Last Admin: 08/18/17 10:16 Dose: 40 mg Insulin Aspart (Novolog) 0 unit SC ACHS [facility] PRN Reason: Protocol Last Admin: 08/18/17 12:55 Dose: 2 unit Magnesium Hydroxide (Milk Of Magnesia) 30 ml PO DAILY PRN PRN Reason: Constipation Metformin HCl (Glucophage) 1,000 mg PO BID [facility] Last Admin: 08/18/17 10:16 Dose: 1,000 mg Methylprednisolone (Solu-Medrol) 40 mg IVP Q12 [facility] Last Admin: 08/18/17 10:17 Dose: 40 mg Montelukast Sodium (Singulair) 10 mg PO HS [facility] Last Admin: 08/17/17 22:44 Dose: 10 mg Multivitamins/Minerals (Therapeutic-M Tab) 1 tab PO DAILY [facility] Last Admin: 08/18/17 10:16 Dose: 1 tab Pregabalin (Lyrica) 50 mg PO BID [facility] Last Admin: 08/18/17 10:16 Dose: 50 mg Promethazine HCl/Codeine (Phenergan/Codeine Oral Syrup) 5 ml PO Q8 PRN PRN Reason: Cough Last Admin: 08/17/17 22:44 Dose: 5 ml Fluticasone/Salmeterol (Advair Diskus 250/50) 1 puff INH RQ12 [facility] Last Admin: 08/18/17 08:00 Dose: 1 puff - Labs Labs: 08/18/17 07:51 08/18/17 07:51
--- NOTE | 2017-08-18 21:51 | CP.PCM.DIS ---
Provider - Provider Date of Admission: 08/16/17 05:15 Attending physician: Hal Garcia MD Time Spent in preparation of Discharge (in minutes): 56 Diagnosis - Discharge Diagnosis (1) Acute bronchitis with asthma with acute exacerbation Status: Acute (2) COPD (chronic obstructive pulmonary disease) Status: Acute (3) Respiratory distress Status: Acute (4) S/P colon resection Status: Acute (5) Allergic rhinitis Status: Chronic Priority: Medium (6) PUNEET (generalized anxiety disorder) Status: Chronic (7) Steroid-induced diabetes Status: Chronic Hospital Course - Lab Results Lab Results: Most Recent Lab Values WBC 10.5 K/uL (4.8-10.8) 08/18/17 07:51 RBC 4.52 Mil/uL (4.40-5.90) 08/18/17 07:51 Hgb 9.4 g/dL (12.0-18.0) L 08/18/17 07:51 Hct 29.8 % (35.0-51.0) L 08/18/17 07:51 MCV 65.9 fL (80.0-94.0) L 08/18/17 07:51 MCH 20.8 pg (27.0-31.0) L 08/18/17 07:51 MCHC 31.5 g/dL (33.0-37.0) L 08/18/17 07:51 RDW 18.0 % (11.5-14.5) H 08/18/17 07:51 Plt Count 293 K/uL (130-400) 08/18/17 07:51 MPV 8.4 fL (7.2-11.7) 08/18/17 07:51 Neut % (Auto) 87.5 % (50.0-75.0) H 08/18/17 07:51 Lymph % (Auto) 8.5 % (20.0-40.0) L 08/18/17 07:51 [place] % (Auto) 3.8 % (0.0-10.0) 08/18/17 07:51 Eos % (Auto) 0.0 % (0.0-4.0) 08/18/17 07:51 Baso % (Auto) 0.2 % (0.0-2.0) 08/18/17 07:51 Neut # 9.2 K/uL (1.8-7.0) H 08/18/17 07:51 Lymph # 0.9 K/uL (1.0-4.3) L 08/18/17 07:51 [place] # 0.4 K/uL (0.0-0.8) 08/18/17 07:51 Eos # 0.0 K/uL (0.0-0.7) 08/18/17 07:51 Baso # 0.0 K/uL (0.0-0.2) 08/18/17 07:51 Neutrophils % (Manual) 86 % (50-75) H 08/18/17 07:51 Band Neutrophils % 1 % (0-2) 08/18/17 07:51 Lymphocytes % (Manual) 8 % (20-40) L 08/18/17 07:51 Monocytes % (Manual) 5 % (0-10) 08/18/17 07:51 Platelet Estimate Normal (NORMAL) 08/18/17 07:51 Hypochromasia (manual) Slight 08/18/17 07:51 Poikilocytosis (manual Slight 08/18/17 07:51 Anisocytosis (manual) Slight 08/18/17 07:51 Microcytosis (manual) Moderate 08/18/17 07:51 Tear Drop Cells Slight 08/18/17 07:51 Ovalocytes Moderate 08/18/17 07:51 Schistocytes Slight 08/18/17 07:51 Puncture Site Rr 08/16/17 04:30 pCO2 27 mm/Hg (35-45) L 08/16/17 04:30 pO2 133 mm/Hg (80-100) H 08/16/17 04:30 HCO3 21.0 mmol/L (21-28) 08/16/17 04:30 ABG pH 7.44 (7.35-7.45) 08/16/17 04:30 ABG Total CO2 19.1 mmol/L (22-28) L 08/16/17 04:30 ABG O2 Saturation 100.9 % (95-98) H 08/16/17 04:30 ABG Base Excess -5.1 mmol/L (-2.0-3.0) L 08/16/17 04:30 ABG Hemoglobin 8.3 g/dL (11.7-17.4) L 08/16/17 04:30 ABG Carboxyhemoglobin 2.6 % (0.5-1.5) H 08/16/17 04:30 POC ABG HHb (Measured) -0.9 % (0.0-5.0) L 08/16/17 04:30 ABG Methemoglobin 1.0 % (0.0-3.0) 08/16/17 04:30 Jesus Test Pos 08/16/17 04:30 Hgb O2 Saturation 97.3 % (95.0-98.0) 08/16/17 04:30 Liter Flow 3.0 08/16/17 04:30 Sodium 133 mmol/L (132-148) 08/18/17 07:51 Potassium 4.8 mmol/L (3.6-5.2) 08/18/17 07:51 Chloride 94 mmol/L (98-107) L 08/18/17 07:51 Carbon Dioxide 31 mmol/L (22-30) H 08/18/17 07:51 Anion Gap 13 (10-20) 08/18/17 07:51 BUN 14 mg/dL (9-20) 08/18/17 07:51 Creatinine 0.6 mg/dL (0.8-1.5) L 08/18/17 07:51 Est GFR ( Amer) > 60 08/18/17 07:51 Est GFR (Non-Af Amer) > 60 08/18/17 07:51 POC Glucose (mg/dL) 246 mg/dL (65-110) H 08/18/17 11:54 Random Glucose 267 mg/dL (75-110) H 08/18/17 07:51 Calcium 8.5 mg/dl (8.6-10.4) L 08/18/17 07:51 Magnesium 2.0 mg/dL (1.6-2.3) 08/15/17 23:51 Total Bilirubin 0.6 mg/dL (0.2-1.3) 08/15/17 23:51 AST 49 U/L (17-59) 08/15/17 23:51 ALT 47 U/L (21-72) 08/15/17 23:51 Alkaline Phosphatase 138 U/L (38-126) H 08/15/17 23:51 Troponin I < 0.0120 ng/mL (0.00-0.120) 08/15/17 23:51 NT-Pro-B Natriuret Pep 33.9 pg/mL (0-900) 08/15/17 23:51 Total Protein 7.6 g/dL (6.3-8.3) 08/15/17 23:51 Albumin 4.3 g/dL (3.5-5.0) 08/15/17 23:51 Globulin 3.3 gm/dL (2.2-3.9) 08/15/17 23:51 Albumin/Globulin Ratio 1.3 (1.0-2.1) 08/15/17 23:51 Influenza Typ A,B (EIA) Negative for flu a/b (NEGATIVE) 08/16/17 00:25 - Hospital Course Hospital Course: Pt seen and evaluated, is less short of breath, he needs out pt stress test, pt is for discharge today Taper steroids, out pt follow up with GI Discharge Exam - Head Exam Head Exam: NORMAL INSPECTION - Eye Exam Eye Exam: EOMI, Normal appearance, PERRL Pupil Exam: NORMAL ACCOMODATION, PERRL - ENT Exam ENT Exam: Mucous Membranes Moist - Respiratory Exam Respiratory Exam: Clear to PA & Lateral - Cardiovascular Exam Cardiovascular Exam: REGULAR RHYTHM, +S2 - GI/Abdominal Exam GI & Abdominal Exam: Normal Bowel Sounds Discharge Plan - Discharge Medications Prescriptions: Roflumilast [Daliresp] 500 mcg PO DAILY #30 tab Promethazine/Codeine [Phenergan/Codeine Oral Syrup] 5 ml PO Q8 PRN #240 [facility] PRN Reason: Cough predniSONE [Prednisone] 20 mg PO DAILY #30 tab Alprazolam [Xanax] 0.5 mg PO Q12 #60 tablet - Follow Up Plan Condition: GOOD Disposition: HOME/ ROUTINE Instructions: COPD (Chronic Obstructive Pulmonary Disease) (DC), COPD (Chronic Obstructive Pulmonary Disease) (GEN) Additional Instructions: Follow up at Dr. Nieto's office to schedule for ileostomy reversal. Ideally, taper off the steroids before surgery for better wound healing Please f/u with Dr. Garcia office in 1 week Please f/u with Dr. Wayne scales office in 1 week- call and make appointment-[phone] Please f/u with Dr. juan jose mcelroy 2 week f/u with Dr. Nieto office after colonoscopy continue medication as per Med. Rec. Referrals: Ralf Nuno MD [Staff Provider] - Adrián Black MD [Staff Provider] - Lucho Nieto Jr., MD [Staff Provider] -
== END 2017-08-18 15:04 | disposition home or self-care (01) ==
LOC: C.ER 22:10 → C.6T 08-16 05:15
PROVIDERS: ADMIT Internal Medicine; ATTEND Internal Medicine
DX: J44.0 Chronic obstructive pulmonary disease with (acute) lower respiratory infection (principal); J20.9 Acute bronchitis, unspecified; J45.901 Unspecified asthma with (acute) exacerbation; F41.1 Generalized anxiety disorder; E09.9 Drug or chemical induced diabetes mellitus without complications; T38.0X5A Adverse effect of glucocorticoids and synthetic analogues, initial encounter; E87.2 Acidosis; R10.9 Unspecified abdominal pain; I11.0 Hypertensive heart disease with heart failure; I50.9 Heart failure, unspecified; Z99.81 Dependence on supplemental oxygen; Z87.891 Personal history of nicotine dependence; Z90.49 Acquired absence of other specified parts of digestive tract
CPT/HCPCS: 36415; 71046; 80048; 80053; 82803; 82948; 83735; 83880; 84484; 85025; 87804; 93005; 94640; 94660; 94760; 96374; 99285; G0378; J1650; J2920; J2930; J7040

== ENCOUNTER 2017-08-23 04:18 | Inpatient (IN) | payer MEDICARE, BC ==
[2017-08-23 04:18] VITALS: BMI 23.1
--- NOTE | 2017-08-23 04:27 | C.PDOC ---
History Of Present Illness Patient presents to ED with complaints of worsening SOB. He is a well known COPD patient. He uses home oxygen 2 liters. Patient speaking in one or two word sentences. Denies fever, chills, nausea or vomiting. Time Seen by Provider: 08/23/17 04:26 History Per: Patient History/Exam Limitations: no limitations Onset/Duration Of Symptoms: Hrs Current Symptoms Are (Timing): Still Present Initiating Event: Other Exacerbating Factor(s): Exertion, Coughing Current Respiratory Medications: See Home Med List Severity: Severe Pain Scale Rating Of: 9 Associated Symptoms: Heart Racing. denies: Fever, Chills Reports Recently: Seen In ED, Treated By A Physician, Hospitalized Recent travel outside of the [place]: No Additional History Per: Patient Past Medical History Reviewed: Historical Data, Nursing Documentation, Vital Signs Vital Signs: Last Vital Signs Temp 101.7 F H 08/23/17 04:30 Pulse 149 H 08/23/17 05:15 Resp 28 H 08/23/17 05:15 BP 121/75 08/23/17 05:15 Pulse Ox 98 08/23/17 05:16 - Medical History PMH: Anemia, Anxiety, Arthritis, Asthma, Bronchitis, CHF, COPD (Emphysema), Diabetes, Emphysema, HTN, Hypercholesterolemia, Kidney Stones, Pneumonia, Chronic Kidney Disease, Sleep Apnea Comment Only: Cardia Arrhythmia (tachycardic) - [facility] Procedures ASSISTANCE WITH RESPIRATORY VENTILATION, 24-96 HRS, CPAP (07/15/17) ASSISTANCE WITH RESPIRATORY VENTILATION, <24 HRS, CPAP (07/08/16) ASSISTANCE WITH RESPIRATORY VENTILATION, >96 HRS, CPAP (05/08/17) CONTINUOUS INVASIVE MECHANICAL VENTILATION <96 CONSEC HRS (11/29/14) DILATION OF RIGHT URETER WITH INTRALUMINAL DEVICE, ENDO (03/20/17) EXCISION OF SIGMOID COLON, ENDO, DIAGN (03/20/17) EXCISION OF STOMACH, ENDO, DIAGN (03/20/17) EXCISION OF TRANSVERSE COLON, ENDO, DIAGN (03/20/17) INFLUENZA VACCINATION (06/02/14) INSERT ENDOTRACHEAL TUBE (11/29/14) LARYGNOSCOPY AND OTH TRACHEOSCOPY (04/18/15) MEASURE OF CARDIAC SAMPL & PRESSURE, L HEART, PERC APPROACH (12/01/15) NON-INVASIVE MECHANICAL VENTILATION (04/18/15) RESECTION OF SIGMOID COLON, OPEN APPROACH (03/20/17) RESPIRATORY VENTILATION, GREATER THAN 96 CONSECUTIVE HOURS (03/20/17) Family History: States: No Known Family Hx - Social History Hx Tobacco Use: Yes (8 years ppd smoker. quit 1.5 years ago) Hx Alcohol Use: No Hx Substance Use: No - Immunization History Hx Tetanus Toxoid Vaccination: Yes Hx Influenza Vaccination: Yes Hx Pneumococcal Vaccination: Yes (12/01/2014) Review Of Systems Constitutional: Negative for: Fever, Chills Eyes: Negative for: Redness ENT: Negative for: Throat Pain Cardiovascular: Negative for: Chest Pain Respiratory: Positive for: Shortness of Breath Gastrointestinal: Negative for: Nausea, Vomiting Genitourinary: Negative for: Dysuria Musculoskeletal: Negative for: Back Pain Skin: Negative for: Rash Neurological: Negative for: Weakness, Numbness Psych: Positive for: Anxiety. Negative for: Depression, Suicidal ideation Physical Exam - Physical Exam Appears: In Acute Distress Skin: Warm, Dry Head: Normacephalic Eye(s): bilateral: Normal Inspection Oral Mucosa: Moist Neck: Trachea Midline, Supple Chest: Symmetrical, No Tenderness Cardiovascular: Rhythm Regular (tachy) Respiratory: Decreased Breath Sounds (bilaterally), No Rales, No Rhonchi, Wheezing Gastrointestinal/Abdominal: Soft, No Tenderness, No Distention, Other ( colostomy bag in place) Back: No CVA Tenderness Extremity: Normal ROM Extremity: Bilateral: Atraumatic, Normal Color And Temperature, Normal ROM Pulses: Left Dorsalis Pedis: Normal, Right Dorsalis Pedis: Normal Neurological/Psych: Oriented x3, Normal Speech, Normal Cognition Gait: Unable To Assess ED Course And Treatment - Laboratory Results Result Diagrams: 08/23/17 04:39 08/23/17 04:39 ECG: Interpreted By Me, Viewed By Me ECG Rhythm: Sinus Tachycardia (160), Nonspecific Changes O2 Sat by Pulse Oximetry: 98 (RA) Pulse Ox Interpretation: Normal - Radiology CXR: Interpreted by Me, Viewed By Me Progress Note: Administered Cardizem, SOLU-Medrol and Albuterol nebulizer. Ordered blood gas, blood work, CXR, and urinalysis. 25 mg iv cardized given for svt 160's. decreased fio2 to 40% after the abg Critical Care Time - Critical Care Note Total Time (in mins): 30 Documented critical care: time excludes all time spent performing seperately billable procedures. Disposition Discussed With Dr.: Hal Garcia Comment: accepted the pt onhis service and took over the care at 6:14 AM Doctor Will See Patient In The: Hospital Counseled Patient/Family Regarding: Studies Performed, Diagnosis - Disposition Disposition: HOSPITALIZED Disposition Time: 04:27 Condition: GUARDED - POA Present On Arrival: Poor Glycemic Control - Clinical Impression Clinical Impression: COPD (chronic obstructive pulmonary disease) with emphysema, SVT ( supraventricular tachycardia) - Scribe Statement The provider has reviewed the documentation as recorded by the Scribilya Talamantes All medical record entries made by the Scribe were at my direction and personally dictated by me. I have reviewed the chart and agree that the record accurately reflects my personal performance of the history, physical exam, medical decision making, and the department course for this patient. I have also personally directed, reviewed, and agree with the discharge instructions and disposition. Decision To Admit - Pt Status Changed To: Hospital Disposition Of: Inpatient - Admit Certification Admit to Inpatient:: After my assessment, the patient will require hospitalization for at least two midnights. This is because of the severity of symptoms shown, intensity of services needed, and/or the medical risk in this patient being treated as an outpatient. - InPatient: Physician Admission Certification: I certify that this patient requires 2 or more midnights of care for the following reason:: After my assessment, the patient will require hospitalization for at least two midnights. This is because of the severity of symptoms shown, intensity of services needed, and/or the medical risk in this patient being treated as an outpatient. - . Bed Request Type: Telemetry Admitting Physician: Hal Garcia Patient Diagnosis: COPD (chronic obstructive pulmonary disease) with emphysema, SVT ( supraventricular tachycardia)
[2017-08-23 04:44] LABS: ABG ALLEN TEST POS; ARTERIAL BLOOD GAS O2 SAT 100.3 % (95-98); ARTERIAL BLOOD GAS PCO2 33 mm/Hg (35-45); ARTERIAL BLOOD GAS PH 7.53 (7.35-7.45); ARTERIAL BLOOD GAS PO2 461 mm/Hg (80-100); ARTERIAL BLOOD GAS TCO2 28.6 mmol/L (22-28)
[2017-08-23] MEDS: Albuterol-Ipratrop 3 mg / 0.5 (3 ml) UD IH SCH (04:44)
[2017-08-23 04:45] LABS: BASO # 0.1 K/uL (0.0-0.2); BASO % 0.9 % (0.0-2.0); EOS # 0.2 K/uL (0.0-0.7); EOS % 1.2 % (0.0-4.0); HEMOGLOBIN 10.9 g/dL (12.0-18.0); LYMPH # 2.3 K/uL (1.0-4.3); LYMPH % 15.3 % (20.0-40.0); MEAN CORPUSCULAR HEMOGLOBIN 19.7 pg (27.0-31.0); MEAN CORPUSCULAR HGB CONC 30.4 g/dL (33.0-37.0); MEAN PLATELET VOLUME 7.8 fL (7.2-11.7); MONO # 1.2 K/uL (0.0-0.8); MONO % 7.7 % (0.0-10.0); NEUT # 11.1 K/uL (1.8-7.0); NEUT % 74.9 % (50.0-75.0); NRBC % 0.1 % (0.0-2.0); RBC 5.51 Mil/uL (4.40-5.90); RED CELL DISTRIBUTION WIDTH 18.4 % (11.5-14.5); WHITE BLOOD COUNT 14.9 K/uL (4.8-10.8)
[2017-08-23] MEDS ORDERED: Albuterol-Ipratrop 3 mg / 0.5 (3 ml) UD ONE (04:46)
[2017-08-23 04:59] LABS: INR 1.1; PROTHROMBIN TIME 12.6 SECONDS (9.7-12.2)
[2017-08-23 05:20] LABS: ALB/GLOB RATIO 1.3 (1.0-2.1); ALBUMIN 4.5 g/dL (3.5-5.0); ALT/SGPT 46 U/L (21-72); AST/SGOT 29 U/L (17-59); BLOOD UREA NITROGEN 7 mg/dL (9-20); CALCIUM 8.6 mg/dl (8.6-10.4); GFR AFRICAN-AMERICAN > 60; GFR NON-AFRICAN AMERICAN > 60; MAGNESIUM 1.8 mg/dL (1.6-2.3)
[2017-08-23] MEDS ORDERED: Piperacillin/Tazobact 3.375 gm 100 ML IVPB STA (05:54)
--- NOTE | 2017-08-23 06:09 | CP.PCM.CON ---
History of Present Illness - History of Present Illness History of Present Illness: 67yo M. PMHx severe COPD on home oxygen, anemia of chronic disease, DVT, CHF, HTN, DM, obstructive colon CA s/p low anterior resection with diverting loop ileostomy. p/w recurrent COPD exacerbation. Review of Systems - Review of Systems All systems: reviewed and no additional remarkable complaints except - Respiratory Respiratory: Cough Past Patient History - Infectious Disease Hx of Infectious Diseases: None - Past Medical History & Family History Past Medical History?: Yes - Past Social History Smoking Status: Former Smoker - CARDIAC Hx Cardia Arrhythmia: (tachycardic) Hx Congestive Heart Failure: Yes Hx Hypercholesterolemia: Yes Hx Hypertension: Yes - PULMONARY Hx Asthma: Yes Hx Bronchitis: Yes Hx Chronic Obstructive Pulmonary Disease (COPD): Yes (Emphysema) Hx Emphysema: Yes Hx Pneumonia: Yes Hx Sleep Apnea: Yes - NEUROLOGICAL Hx Neurological Disorder: No - HEENT Hx HEENT Problems: Yes Hx Cataracts: Yes (left cataract removed, r cataract) Other/Comment: wears eyeglasses for distance - RENAL Hx Chronic Kidney Disease: Yes Hx Kidney Stones: Yes - ENDOCRINE/METABOLIC Hx Endocrine Disorders: Yes Hx Diabetes Mellitus Type 2: Yes - HEMATOLOGICAL/ONCOLOGICAL Hx Anemia: Yes - INTEGUMENTARY Hx Dermatological Problems: No - MUSCULOSKELETAL/RHEUMATOLOGICAL Hx Arthritis: Yes - GASTROINTESTINAL Hx Gastritis: No - PSYCHIATRIC Hx Anxiety: Yes Hx Substance Use: No - SURGICAL HISTORY Hx Surgeries: Yes Hx Cardiac Catheterization: Yes (11/2015) Other/Comment: colon resection with right ileostomy - ANESTHESIA Hx Anesthesia: Yes Hx Anesthesia Reactions: No Hx Malignant Hyperthermia: No Meds Allergies/Adverse Reactions: Allergies Allergy/AdvReac Type Severity Reaction Status Date / Time acetaminophen [From Tylenol] Allergy RASH Verified 08/23/17 04:40 FISH Allergy SWELLING Verified 08/23/17 04:40 shrimp Allergy SHORTNESS Verified 08/23/17 04:40 OF BREATH IV dye Allergy Severe ANAPHYLAXIS Uncoded 08/23/17 04:40 - Medications Medications: Current Medications Diltiazem HCl 125 mg/ Sodium (Chloride) 125 mls @ 10 mls/hr IV .[id number] [facility] PRN Reason: 10 MG/HR Piperacillin Sod/Tazobactam Sod (Zosyn 3.375 In Ns 100ml) 100 mls @ 200 mls/hr IVPB STAT STA Stop: 08/23/17 06:23 Physical Exam - Head Exam Head Exam: ATRAUMATIC, NORMAL INSPECTION, NORMOCEPHALIC - Eye Exam Eye Exam: EOMI, Normal appearance, PERRL Pupil Exam: NORMAL ACCOMODATION, PERRL - ENT Exam ENT Exam: Mucous Membranes Moist, Normal Exam - Respiratory Exam Respiratory Exam: Clear to Auscultation Bilateral, NORMAL BREATHING PATTERN - Cardiovascular Exam Cardiovascular Exam: Tachycardia, REGULAR RHYTHM - GI/Abdominal Exam GI & Abdominal Exam: Normal Bowel Sounds, Soft. absent: Tenderness - Neurological Exam Neurological exam: Alert, CN II-XII Intact, Normal Gait, Oriented x3, Reflexes Normal - Psychiatric Exam Psychiatric exam: Normal Affect, Normal Mood Results - Vital Signs Recent Vital Signs: Last Vital Signs Temp 101.7 F H 08/23/17 04:30 Pulse 149 H 08/23/17 05:15 Resp 28 H 08/23/17 05:15 BP 121/75 08/23/17 05:15 Pulse Ox 98 08/23/17 05:16 - Labs Result Diagrams: 08/23/17 04:39 08/23/17 04:39 Labs: Laboratory Results - last 24 hr 08/23/17 08/23/17 08/23/17 04:39 04:39 04:39 WBC 14.9 H RBC 5.51 Hgb 10.9 L Hct 35.8 MCV 65.0 L MCH 19.7 L MCHC 30.4 L RDW 18.4 H Plt Count 388 MPV 7.8 Neut % (Auto) 74.9 Lymph % (Auto) 15.3 L [place] % (Auto) 7.7 Eos % (Auto) 1.2 Baso % (Auto) 0.9 Neut # 11.1 H Lymph # 2.3 [place] # 1.2 H Eos # 0.2 Baso # 0.1 PT 12.6 H INR 1.1 APTT 28 Puncture Site pCO2 pO2 HCO3 ABG pH ABG Total CO2 ABG O2 Saturation ABG Base Excess Jesus Test ABG Potassium A-a O2 Difference Respiratory Index Glucose Lactate Vent Mode FiO2 Inspiratory BiPAP Expiratory BiPAP Sodium 131 L Potassium 3.9 Chloride 91 L Carbon Dioxide 29 Anion Gap 15 BUN 7 L Creatinine 0.7 L Est GFR ( Amer) > 60 Est GFR (Non-Af Amer) > 60 Random Glucose 138 H Calcium 8.6 Magnesium 1.8 Total Bilirubin 0.6 AST 29 ALT 46 Alkaline Phosphatase 141 H Troponin I < 0.0120 NT-Pro-B Natriuret Pep 57.0 Total Protein 8.1 Albumin 4.5 Globulin 3.6 Albumin/Globulin Ratio 1.3 Arterial Blood Potassium 08/23/17 04:40 WBC RBC Hgb Hct MCV MCH MCHC RDW Plt Count MPV Neut % (Auto) Lymph % (Auto) [place] % (Auto) Eos % (Auto) Baso % (Auto) Neut # Lymph # [place] # Eos # Baso # PT INR APTT Puncture Site Rr pCO2 33 L pO2 461 H HCO3 29.0 H ABG pH 7.53 H ABG Total CO2 28.6 H ABG O2 Saturation 100.3 H ABG Base Excess 5.1 H Jesus Test Pos ABG Potassium 3.7 A-a O2 Difference 211.0 Respiratory Index 0.5 Glucose 150 H Lactate 1.6 Vent Mode Bipap FiO2 100.0 Inspiratory BiPAP 12 Expiratory BiPAP 6 Sodium 135.0 Potassium Chloride 103.0 Carbon Dioxide Anion Gap BUN Creatinine Est GFR ( Amer) Est GFR (Non-Af Amer) Random Glucose Calcium Magnesium Total Bilirubin AST ALT Alkaline Phosphatase Troponin I NT-Pro-B Natriuret Pep Total Protein Albumin Globulin Albumin/Globulin Ratio Arterial Blood Potassium 3.7 Assessment & Plan (1) Acute exacerbation of chronic obstructive airways disease Assessment and Plan: 67yo M. PMHx severe COPD on home oxygen, anemia of chronic disease, DVT, CHF, HTN, DM, obstructive colon CA s/p low anterior resection with diverting loop ileostomy. p/w recurrent COPD exacerbation. Neuro: alert and oriented x 3 Pulm: AECOPD on BIPAP. Patient is breathing more comfortably currently. Steroids, duonebs. CXR clear. Probable bronchitis, f/u flu swab. With his severe COPD and age less than 70, patient may benefit from a referral to a transplant center, will consult Pulmonary - Dr. Nuno. CV: hemodynamically stable. Sinus tachycardia. Hem: anemia of chronic disease. Colon CA s/p LAR with negative margins, no chemotx prescribed. Renal: no acute issues, urine output wnl. Endo: DM type 2, SISS for coverage GI: NPO while on BIPAP. Patient would like to get colonoscopy done inpatient, as he cannot travel in this extreme cold without exacerbating his COPD. ID: bronchitis, atypical coverage for AECOPD, starting Azithromycin. f/u flu swab. DVT proph - lovenox GI proph - not currently indicated Code status - full code Critical Care Time spent 35 minutes The documented time is cumulative and includes review of patient data/exams/labs /chart review and examination of the patient on rounds and throughout the day; time is exclusive of any procedures or teaching time. Status: Acute
[2017-08-23] MEDS ORDERED: Aluminum Hydroxide/Magnesium Hydroxide Susp (30 mL) PO PRN (06:43)
[2017-08-23] MEDS ORDERED: Magnesium Hydroxide Susp 30 ml UD PO PRN (06:43)
[2017-08-23] MEDS ORDERED: MethylPREDNISolone 40 mg Vial IVP STA (06:46)
[2017-08-23] MEDS: Piperacill/Tazo 3.375gm in Dex 3.375 GM/50 ML BAG IVPB SCH ×3 (07:29→20:25)
[2017-08-23] MEDS ORDERED: Sodium Chloride 0.9% 250 ML IV ONE (07:41)
[2017-08-23] MEDS ORDERED: Budesonide 0.5 mg/2 ml Inhal Susp UD IH SCH (08:00)
[2017-08-23] MEDS ORDERED: Albuterol-Ipratrop 3 mg / 0.5 (3 ml) UD INH SCH (08:00)
[2017-08-23] MEDS: Albuterol-Ipratrop 3 mg / 0.5 (3 ml) UD INH SCH ×3 (08:30→20:15)
--- NOTE | 2017-08-23 08:41 | RAD ---
Chest x-ray single frontal view History: Shortness of breath. Comparison: 08/16/2017 Findings: Nodular density at the right lung base may represent confluence shadows with ribs and vessels versus nipple shadow versus small nodule. Clinical correlation. Hyperinflation suggestive for COPD and or emphysematous changes. Biapical pleural thickening. Heart size within normal limits. Degenerative changes in the spine and shoulders. Impression: Nodular density at the right lung base may represent confluence shadows with ribs and vessels versus nipple shadow versus small nodule. Clinical correlation. Hyperinflation suggestive for COPD and or emphysematous changes.
[2017-08-23] MEDS: (Novolog) Insulin Aspart, Recombinant 100 u/ml 10 ml vial SC SCH ×4 (08:58→21:51)
[2017-08-23] MEDS: Enoxaparin 40 mg Syringe SC SCH (09:10)
[2017-08-23] MEDS: Pantoprazole 40 mg EC Tab PO SCH (09:11)
[2017-08-23] MEDS: Sodium Chloride 0.9% 1,000 ML IV SCH ×2 (09:12→17:13)
[2017-08-23] MEDS: guaiFENesin 100 mg/5 ml Syrup UD PO PRN ×3 (09:24→21:55)
[2017-08-23] MEDS ORDERED: MULTIVIT IRON MIN PO SCH (10:00)
[2017-08-23] MEDS ORDERED: FOLIC ACID PO SCH (10:00)
[2017-08-23] MEDS ORDERED: MethylPREDNISolone 40 mg Vial IVP SCH (10:00)
[2017-08-23] MEDS ORDERED: methylPREDNISolone 40 MG in Sodium Chloride 0.9% 100 ML IVPB SCH (10:00)
[2017-08-23] MEDS: Azithromycin 500 MG in Sodium Chloride 0.9% 250 ML IVPB SCH (10:07)
[2017-08-23 12:02] LABS: CK-MB 1.08 ng/mL (0.0-3.38)
[2017-08-23] MEDS: Multivitamin With Minerals Tab PO SCH (12:16)
[2017-08-23] MEDS: MethylPREDNISolone 40 mg Vial IV SCH ×2 (12:17→19:22)
[2017-08-23] MEDS: Fluticasone-Salmeterol 250-50mcg Diskus INH SCH ×2 (13:35→20:16)
[2017-08-23 14:00] LABS: URINE BILIRUBIN NEGATIVE (NEGATIVE); URINE BLOOD NEGATIVE (NEGATIVE); URINE CLARITY Clear (Clear); URINE COLOR Yellow (YELLOW); URINE GLUCOSE (UA) 3+ mg/dL (Normal); URINE LEUKOCYTE ESTERASE NEG Leu/uL (Negative); URINE NITRATE NEGATIVE (NEGATIVE); URINE PROTEIN NEGATIVE (NEGATIVE); URINE UROBILINOGEN NORMAL mg/dL (0.2-1.0)
[2017-08-23] MEDS ORDERED: MethylPREDNISolone 40 mg Vial IV SCH (14:00)
[2017-08-23] MEDS ORDERED: (Novolog) Insulin Aspart, Recombinant 100 u/ml 10 ml vial SC SCH ×2 (17:01→22:00)
[2017-08-23 17:05] LABS: CK-MB 1.36 ng/mL (0.0-3.38)
--- NOTE | 2017-08-23 17:58 | CP.PCM.CON ---
History of Present Illness - History of Present Illness History of Present Illness: Chief complaint: shortness of breath 67-year-old male with severe COPD, multiple intubations in the past, hypertension, status post low anterior resection with diverting ileostomy presented with severe shortness of breath. Denies fever chills, denies chest pain. Patient put on BiPAP and admitted to the icu Review of Systems - Review of Systems All systems: reviewed and no additional remarkable complaints except (shortness of breath and cough) Past Patient History - Infectious Disease Hx of Infectious Diseases: None - Past Medical History & Family History Past Medical History?: Yes - Past Social History Smoking Status: Former Smoker - CARDIAC Hx Cardia Arrhythmia: (SVT) Hx Congestive Heart Failure: Yes Hx Hypercholesterolemia: Yes Hx Hypertension: Yes - PULMONARY Hx Asthma: Yes Hx Bronchitis: Yes Hx Chronic Obstructive Pulmonary Disease (COPD): Yes (Emphysema) Hx Emphysema: Yes Hx Pneumonia: Yes Hx Sleep Apnea: Yes - NEUROLOGICAL Hx Neurological Disorder: No - HEENT Hx HEENT Problems: Yes Hx Cataracts: Yes (left cataract removed, r cataract) Other/Comment: wears eyeglasses for distance - RENAL Hx Chronic Kidney Disease: Yes Hx Kidney Stones: Yes - ENDOCRINE/METABOLIC Hx Endocrine Disorders: Yes Hx Diabetes Mellitus Type 2: Yes - HEMATOLOGICAL/ONCOLOGICAL Hx Anemia: Yes - INTEGUMENTARY Hx Dermatological Problems: No - MUSCULOSKELETAL/RHEUMATOLOGICAL Hx Falls: Yes - GASTROINTESTINAL Hx Bowel Surgery: Yes (SIGMOID COLON RESECTION (03/29)) Hx Gastritis: No - PSYCHIATRIC Hx Anxiety: Yes Hx Substance Use: No - SURGICAL HISTORY Hx Surgeries: Yes Hx Cardiac Catheterization: Yes (11/2015) Other/Comment: colon resection with right ileostomy - ANESTHESIA Hx Anesthesia: Yes Hx Anesthesia Reactions: No Hx Malignant Hyperthermia: No Meds Allergies/Adverse Reactions: Allergies Allergy/AdvReac Type Severity Reaction Status Date / Time acetaminophen [From Tylenol] Allergy RASH Verified 08/23/17 04:40 FISH Allergy SWELLING Verified 08/23/17 04:40 shrimp Allergy SHORTNESS Verified 08/23/17 04:40 OF BREATH IV dye Allergy Severe ANAPHYLAXIS Uncoded 08/23/17 04:40 - Medications Medications: Current Medications Al Hydrox/Mg Hydrox/Simethicone (Maalox 30 Ml) 30 ml PO Q6H PRN PRN Reason: Indigestion / Heartburn Albuterol/Ipratropium (Duoneb 3 Mg/0.5 Mg (3 Ml) Ud) 3 ml INH RQ6 [facility] Last Admin: 08/23/17 13:44 Dose: 3 ml Budesonide (Pulmicort Respules) 1 mg IH RQ12 [facility] Enoxaparin Sodium (Lovenox) 40 mg SC DAILY [facility] Last Admin: 08/23/17 09:10 Dose: 40 mg Guaifenesin (Robitussin) 300 mg PO Q4H PRN PRN Reason: Cough Last Admin: 08/23/17 17:07 Dose: 300 mg Azithromycin 500 mg/ Sodium (Chloride) 250 mls @ 250 mls/hr IVPB DAILY [facility] Last Admin: 08/23/17 10:07 Dose: 250 mls/hr Piperacillin Sod/Tazobactam Sod (Zosyn 3.375 Gm Iv Premix) 3.375 gm in 50 mls @ 100 mls/hr IVPB Q6H [facility] Last Admin: 08/23/17 17:07 Dose: 100 mls/hr Sodium Chloride (Sodium Chloride 0.9%) 1,000 mls @ 100 mls/hr IV .Q10H [facility] Last Admin: 08/23/17 17:13 Dose: 100 mls/hr Insulin Aspart (Novolog) 0 unit SC ACHS [facility] PRN Reason: Protocol Last Admin: 08/23/17 17:29 Dose: 6 unit Magnesium Hydroxide (Milk Of Magnesia) 30 ml PO DAILY PRN PRN Reason: Constipation Last Admin: 08/23/17 09:10 Dose: 30 ml Metformin HCl (Glucophage) 1,000 mg PO BID [facility] Last Admin: 08/23/17 17:29 Dose: 1,000 mg Methylprednisolone (Solu-Medrol) 40 mg IV Q8H [facility] Last Admin: 08/23/17 12:17 Dose: Not Given Montelukast Sodium (Singulair) 10 mg PO [facility] Multivitamins/Minerals (Therapeutic-M Tab) 1 tab PO DAILY [facility] Last Admin: 08/23/17 12:16 Dose: 1 tab Oseltamivir Phosphate (Tamiflu Cap) 75 mg PO BID [facility] Stop: 08/28/17 10:16 Last Admin: 08/23/17 12:15 Dose: 75 mg Pantoprazole Sodium (Protonix Ec Tab) 40 mg PO DAILY [facility] Last Admin: 08/23/17 09:11 Dose: 40 mg Pregabalin (Lyrica) 50 mg PO BID [facility] Last Admin: 08/23/17 09:11 Dose: 50 mg Roflumilast (Daliresp) 500 mcg PO DAILY [facility] Last Admin: 08/23/17 12:24 Dose: 500 mcg Fluticasone/Salmeterol (Advair Diskus 250/50) 1 puff INH RBID [facility] Last Admin: 08/23/17 13:35 Dose: Not Given Physical Exam - Head Exam Head Exam: ATRAUMATIC, NORMOCEPHALIC - Eye Exam Eye Exam: Normal appearance - ENT Exam ENT Exam: Mucous Membranes Moist - Neck Exam Neck exam: Positive for: Normal Inspection - Respiratory Exam Respiratory Exam: Decreased Breath Sounds - Cardiovascular Exam Cardiovascular Exam: REGULAR RHYTHM - GI/Abdominal Exam GI & Abdominal Exam: Normal Bowel Sounds, Soft - Extremities Exam Extremities exam: Positive for: normal inspection Results - Vital Signs Recent Vital Signs: Last Vital Signs Temp 97.6 F 08/23/17 16:00 Pulse 90 08/23/17 16:00 Resp 16 08/23/17 16:00 BP 102/62 08/23/17 15:00 Pulse Ox 98 08/23/17 16:00 - Labs Result Diagrams: 08/24/17 09:42 08/24/17 09:42 Labs: Laboratory Results - last 24 hr 08/23/17 08/23/17 08/23/17 04:39 04:39 04:39 WBC 14.9 H RBC 5.51 Hgb 10.9 L Hct 35.8 MCV 65.0 L MCH 19.7 L MCHC 30.4 L RDW 18.4 H Plt Count 388 MPV 7.8 Neut % (Auto) 74.9 Lymph % (Auto) 15.3 L [place] % (Auto) 7.7 Eos % (Auto) 1.2 Baso % (Auto) 0.9 Neut # 11.1 H Lymph # 2.3 [place] # 1.2 H Eos # 0.2 Baso # 0.1 PT 12.6 H INR 1.1 APTT 28 Puncture Site pCO2 pO2 HCO3 ABG pH ABG Total CO2 ABG O2 Saturation ABG Base Excess Jesus Test ABG Potassium A-a O2 Difference Respiratory Index Glucose Lactate Vent Mode FiO2 Inspiratory BiPAP Expiratory BiPAP Sodium 131 L Potassium 3.9 Chloride 91 L Carbon Dioxide 29 Anion Gap 15 BUN 7 L Creatinine 0.7 L Est GFR ( Amer) > 60 Est GFR (Non-Af Amer) > 60 POC Glucose (mg/dL) Random Glucose 138 H Calcium 8.6 Magnesium 1.8 Total Bilirubin 0.6 AST 29 ALT 46 Alkaline Phosphatase 141 H Total Creatine Kinase CK-MB (Mass) Troponin I < 0.0120 NT-Pro-B Natriuret Pep 57.0 Total Protein 8.1 Albumin 4.5 Globulin 3.6 Albumin/Globulin Ratio 1.3 Arterial Blood Potassium Urine Color Urine Clarity Urine pH Ur Specific [place] Urine Protein Urine Glucose (UA) Urine Ketones Urine Blood Urine Nitrate Urine Bilirubin Urine Urobilinogen Ur Leukocyte Esterase Urine WBC (Auto) Urine RBC (Auto) Influenza Typ A,B (EIA) 08/23/17 08/23/17 08/23/17 04:40 06:59 08:04 WBC RBC Hgb Hct MCV MCH MCHC RDW Plt Count MPV Neut % (Auto) Lymph % (Auto) [place] % (Auto) Eos % (Auto) Baso % (Auto) Neut # Lymph # [place] # Eos # Baso # PT INR APTT Puncture Site Rr pCO2 33 L pO2 461 H HCO3 29.0 H ABG pH 7.53 H ABG Total CO2 28.6 H ABG O2 Saturation 100.3 H ABG Base Excess 5.1 H Jesus Test Pos ABG Potassium 3.7 A-a O2 Difference 211.0 Respiratory Index 0.5 Glucose 150 H Lactate 1.6 Vent Mode Bipap FiO2 100.0 Inspiratory BiPAP 12 Expiratory BiPAP 6 Sodium 135.0 Potassium Chloride 103.0 Carbon Dioxide Anion Gap BUN Creatinine Est GFR ( Amer) Est GFR (Non-Af Amer) POC Glucose (mg/dL) 260 H Random Glucose Calcium Magnesium Total Bilirubin AST ALT Alkaline Phosphatase Total Creatine Kinase CK-MB (Mass) Troponin I NT-Pro-B Natriuret Pep Total Protein Albumin Globulin Albumin/Globulin Ratio Arterial Blood Potassium 3.7 Urine Color Urine Clarity Urine pH Ur Specific [place] Urine Protein Urine Glucose (UA) Urine Ketones Urine Blood Urine Nitrate Urine Bilirubin Urine Urobilinogen Ur Leukocyte Esterase Urine WBC (Auto) Urine RBC (Auto) Influenza Typ A,B (EIA) Pos for influenza a H 08/23/17 08/23/17 08/23/17 11:03 11:45 13:54 WBC RBC Hgb Hct MCV MCH MCHC RDW Plt Count MPV Neut % (Auto) Lymph % (Auto) [place] % (Auto) Eos % (Auto) Baso % (Auto) Neut # Lymph # [place] # Eos # Baso # PT INR APTT Puncture Site pCO2 pO2 HCO3 ABG pH ABG Total CO2 ABG O2 Saturation ABG Base Excess Jesus Test ABG Potassium A-a O2 Difference Respiratory Index Glucose Lactate Vent Mode FiO2 Inspiratory BiPAP Expiratory BiPAP Sodium Potassium Chloride Carbon Dioxide Anion Gap BUN Creatinine Est GFR ( Amer) Est GFR (Non-Af Amer) POC Glucose (mg/dL) 320 H Random Glucose Calcium Magnesium Total Bilirubin AST ALT Alkaline Phosphatase Total Creatine Kinase 44 L CK-MB (Mass) 1.08 Troponin I < 0.0120 NT-Pro-B Natriuret Pep Total Protein Albumin Globulin Albumin/Globulin Ratio Arterial Blood Potassium Urine Color Yellow Urine Clarity Clear Urine pH 6.0 Ur Specific [place] 1.014 Urine Protein Negative Urine Glucose (UA) 3+ H Urine Ketones Trace Urine Blood Negative Urine Nitrate Negative Urine Bilirubin Negative Urine Urobilinogen Normal Ur Leukocyte Esterase Neg Urine WBC (Auto) 1 Urine RBC (Auto) < 1 Influenza Typ A,B (EIA) 08/23/17 08/23/17 16:13 16:22 WBC RBC Hgb Hct MCV MCH MCHC RDW Plt Count MPV Neut % (Auto) Lymph % (Auto) [place] % (Auto) Eos % (Auto) Baso % (Auto) Neut # Lymph # [place] # Eos # Baso # PT INR APTT Puncture Site pCO2 pO2 HCO3 ABG pH ABG Total CO2 ABG O2 Saturation ABG Base Excess Jesus Test ABG Potassium A-a O2 Difference Respiratory Index Glucose Lactate Vent Mode FiO2 Inspiratory BiPAP Expiratory BiPAP Sodium Potassium Chloride Carbon Dioxide Anion Gap BUN Creatinine Est GFR ( Amer) Est GFR (Non-Af Amer) POC Glucose (mg/dL) 309 H Random Glucose Calcium Magnesium Total Bilirubin AST ALT Alkaline Phosphatase Total Creatine Kinase 43 L CK-MB (Mass) 1.36 Troponin I < 0.0120 NT-Pro-B Natriuret Pep Total Protein Albumin Globulin Albumin/Globulin Ratio Arterial Blood Potassium Urine Color Urine Clarity Urine pH Ur Specific [place] Urine Protein Urine Glucose (UA) Urine Ketones Urine Blood Urine Nitrate Urine Bilirubin Urine Urobilinogen Ur Leukocyte Esterase Urine WBC (Auto) Urine RBC (Auto) Influenza Typ A,B (EIA) Assessment & Plan (1) Acute exacerbation of chronic obstructive airways disease Status: Acute Comment: BiPAP. IV steroids and nebulizer treatment. Followup ABG. Continue oxygen
--- NOTE | 2017-08-23 23:35 | CP.PCM.HP ---
History of Present Illness - History of Present Illness History of Present Illness: CC: cough, congestion HPI: 67yo male well known to me with h/o severe COPD on home oxygen, BIPAP, anemia of chronic disease, DVT, CHF, HTN, DM, obstructive colon CA s/p low anterior resection with diverting loop ileostomy. p/w recurrent COPD exacerbation.Pt developed 2 days of cough, congestion, shortness of breath, generalized fatigue and tiredness. Present on Admission - Present on Admission Any Indicators Present on Admission: Yes Review of Systems - Review of Systems Systems not reviewed;Unavailable: Respiratory Distress - Constitutional Constitutional: Chills, Fatigue, Lethargy, Malaise, Weakness - EENT Eyes: absent: As Per HPI, Blind Spots, Blurred Vision, Change in Vision, Decreased Night Vision, Diplopia, Discharge, Dry Eye, Exophthalmos, Floaters, Irritation, Itchy Eyes, Loss of Peripheral Vision, Pain, Photophobia, Requires Corrective Lenses, Sees Flashes, Spots in Vision, Tunnel Vision, Other Visual Disturbances, Loss of Vision, Other Ears: absent: As Per HPI, Decreased Hearing, Ear Discharge, Ear Pain, Tinnitus, Abnormal Hearing, Disequilibrium, Dizziness, Other Nose/Mouth/Throat: Nasal Congestion. absent: As Per HPI, Epistaxis, Nasal Discharge, Nasal Obstruction, Nasal Trauma, Nose Pain, Post Nasal Drip, Sinus Pain, Sinus Pressure, Bleeding Gums, Change in Voice, Dental Pain, Dry Mouth, Dysphagia, Halitosis, Hoarsness, Lip Swelling, Mouth Lesions, Mouth Pain, Odynophagia, Sore Throat, Throat Swelling, Tongue Swelling, Facial Pain, Neck Pain, Neck Mass, Other - Cardiovascular Cardiovascular: Dyspnea, Leg Ulcers. absent: As Per HPI, Acrocyanosis, Chest Pain, Chest Pain at Rest, Chest Pain with Activity, Claudication, Diaphoresis, Dyspnea on Exertion, Edema, Irregular Heart Rhythm, Pain Radiating to Arm/Neck/ Jaw, Leg Edema, Lightheadedness, Orthopnea, Palpitations, Paroxysmal Nocturnal Dyspnea, Pedal Edema, Radiating Pain, Rapid Heart Rate, Slow Heart Rate, Syncope , Other - Respiratory Respiratory: Cough, Dyspnea, Dyspnea on Exertion, Wheezing, Chest Congestion, Excessive Mucous Production, Pain with Coughing - Gastrointestinal Gastrointestinal: absent: As Per HPI, Abdominal Pain, Belching, Bloating, Change in Bowel Habits, Change in Stool Character, Coffee Ground Emesis, Constipation, Cramping, Diarrhea, Dyspepsia, Dysphagia, Early Satiety, Excessive Flatus, Fecal Incontinence, Heartburn, Hematemesis, Hematochezia, Loose Stools, Melena, Nausea, Odynophagia, Temesmus, Vomiting, Other - Musculoskeletal Musculoskeletal: Arthralgias, Joint Swelling - Integumentary Integumentary: Pruritus, Rash - Neurological Neurological: Dizziness, Weakness - Psychiatric Psychiatric: absent: As Per HPI, Abnormal Sleep Pattern, Anhedonia, Anxiety, Auditory Hallucinations, Behavioral Changes, Change in Appetite, Change in Libido, Confusion, Depression, Difficulty Concentrating, Hallucinations, Homicidal Ideation, Hopelessness, Irritability, Memory Loss, Mood Swings, Panic Attacks, Paranoia, Suicidal Ideation, Visual Hallucinations, Tactile Hallucinations, Other Past Patient History - Infectious Disease Hx of Infectious Diseases: None - Past Medical History & Family History Past Medical History?: Yes - Past Social History Smoking Status: Former Smoker - CARDIAC Hx Cardia Arrhythmia: (SVT) Hx Congestive Heart Failure: Yes Hx Hypercholesterolemia: Yes Hx Hypertension: Yes - PULMONARY Hx Asthma: Yes Hx Bronchitis: Yes Hx Chronic Obstructive Pulmonary Disease (COPD): Yes (Emphysema) Hx Emphysema: Yes Hx Pneumonia: Yes Hx Sleep Apnea: Yes - NEUROLOGICAL Hx Neurological Disorder: No - HEENT Hx HEENT Problems: Yes Hx Cataracts: Yes (left cataract removed, r cataract) Other/Comment: wears eyeglasses for distance - RENAL Hx Chronic Kidney Disease: Yes Hx Kidney Stones: Yes - ENDOCRINE/METABOLIC Hx Endocrine Disorders: Yes Hx Diabetes Mellitus Type 2: Yes - HEMATOLOGICAL/ONCOLOGICAL Hx Anemia: Yes - INTEGUMENTARY Hx Dermatological Problems: No - MUSCULOSKELETAL/RHEUMATOLOGICAL Hx Falls: Yes - GASTROINTESTINAL Hx Bowel Surgery: Yes (SIGMOID COLON RESECTION (03/29)) Hx Gastritis: No - PSYCHIATRIC Hx Anxiety: Yes Hx Substance Use: No - SURGICAL HISTORY Hx Surgeries: Yes Hx Cardiac Catheterization: Yes (11/2015) Other/Comment: colon resection with right ileostomy - ANESTHESIA Hx Anesthesia: Yes Hx Anesthesia Reactions: No Hx Malignant Hyperthermia: No Meds Allergies/Adverse Reactions: Allergies Allergy/AdvReac Type Severity Reaction Status Date / Time acetaminophen [From Tylenol] Allergy RASH Verified 08/23/17 04:40 FISH Allergy SWELLING Verified 08/23/17 04:40 shrimp Allergy SHORTNESS Verified 08/23/17 04:40 OF BREATH IV dye Allergy Severe ANAPHYLAXIS Uncoded 08/23/17 04:40 Physical Exam - Constitutional Appears: Chronically Ill Additional comments: mild resp distress - Respiratory Exam Respiratory Exam: Decreased Breath Sounds, Rales - Cardiovascular Exam Cardiovascular Exam: Tachycardia, +S1, +S2 - GI/Abdominal Exam GI & Abdominal Exam: Normal Bowel Sounds, Soft. absent: Tenderness - Skin Skin Exam: Erythema, Rash Additional comments: positive bruises, ecchomysis Results - Vital Signs Recent Vital Signs: Last Vital Signs Temp 97.7 F 08/23/17 20:00 Pulse 116 H 08/23/17 20:48 Resp 22 08/23/17 20:00 BP 109/64 08/23/17 19:49 Pulse Ox 98 08/23/17 20:00 - Labs Result Diagrams: 08/23/17 04:39 08/23/17 04:39 Labs: Laboratory Results - last 24 hr 08/23/17 08/23/17 08/23/17 04:39 04:39 04:39 WBC 14.9 H RBC 5.51 Hgb 10.9 L Hct 35.8 MCV 65.0 L MCH 19.7 L MCHC 30.4 L RDW 18.4 H Plt Count 388 MPV 7.8 Neut % (Auto) 74.9 Lymph % (Auto) 15.3 L [place] % (Auto) 7.7 Eos % (Auto) 1.2 Baso % (Auto) 0.9 Neut # 11.1 H Lymph # 2.3 [place] # 1.2 H Eos # 0.2 Baso # 0.1 PT 12.6 H INR 1.1 APTT 28 Puncture Site pCO2 pO2 HCO3 ABG pH ABG Total CO2 ABG O2 Saturation ABG Base Excess Jesus Test ABG Potassium A-a O2 Difference Respiratory Index Glucose Lactate Vent Mode FiO2 Inspiratory BiPAP Expiratory BiPAP Sodium 131 L Potassium 3.9 Chloride 91 L Carbon Dioxide 29 Anion Gap 15 BUN 7 L Creatinine 0.7 L Est GFR ( Amer) > 60 Est GFR (Non-Af Amer) > 60 POC Glucose (mg/dL) Random Glucose 138 H Calcium 8.6 Magnesium 1.8 Total Bilirubin 0.6 AST 29 ALT 46 Alkaline Phosphatase 141 H Total Creatine Kinase CK-MB (Mass) Troponin I < 0.0120 NT-Pro-B Natriuret Pep 57.0 Total Protein 8.1 Albumin 4.5 Globulin 3.6 Albumin/Globulin Ratio 1.3 Arterial Blood Potassium Urine Color Urine Clarity Urine pH Ur Specific [place] Urine Protein Urine Glucose (UA) Urine Ketones Urine Blood Urine Nitrate Urine Bilirubin Urine Urobilinogen Ur Leukocyte Esterase Urine WBC (Auto) Urine RBC (Auto) Influenza Typ A,B (EIA) 08/23/17 08/23/17 08/23/17 04:40 06:59 08:04 WBC RBC Hgb Hct MCV MCH MCHC RDW Plt Count MPV Neut % (Auto) Lymph % (Auto) [place] % (Auto) Eos % (Auto) Baso % (Auto) Neut # Lymph # [place] # Eos # Baso # PT INR APTT Puncture Site Rr pCO2 33 L pO2 461 H HCO3 29.0 H ABG pH 7.53 H ABG Total CO2 28.6 H ABG O2 Saturation 100.3 H ABG Base Excess 5.1 H Jesus Test Pos ABG Potassium 3.7 A-a O2 Difference 211.0 Respiratory Index 0.5 Glucose 150 H Lactate 1.6 Vent Mode Bipap FiO2 100.0 Inspiratory BiPAP 12 Expiratory BiPAP 6 Sodium 135.0 Potassium Chloride 103.0 Carbon Dioxide Anion Gap BUN Creatinine Est GFR ( Amer) Est GFR (Non-Af Amer) POC Glucose (mg/dL) 260 H Random Glucose Calcium Magnesium Total Bilirubin AST ALT Alkaline Phosphatase Total Creatine Kinase CK-MB (Mass) Troponin I NT-Pro-B Natriuret Pep Total Protein Albumin Globulin Albumin/Globulin Ratio Arterial Blood Potassium 3.7 Urine Color Urine Clarity Urine pH Ur Specific [place] Urine Protein Urine Glucose (UA) Urine Ketones Urine Blood Urine Nitrate Urine Bilirubin Urine Urobilinogen Ur Leukocyte Esterase Urine WBC (Auto) Urine RBC (Auto) Influenza Typ A,B (EIA) Pos for influenza a H 08/23/17 08/23/17 08/23/17 11:03 11:45 13:54 WBC RBC Hgb Hct MCV MCH MCHC RDW Plt Count MPV Neut % (Auto) Lymph % (Auto) [place] % (Auto) Eos % (Auto) Baso % (Auto) Neut # Lymph # [place] # Eos # Baso # PT INR APTT Puncture Site pCO2 pO2 HCO3 ABG pH ABG Total CO2 ABG O2 Saturation ABG Base Excess Jesus Test ABG Potassium A-a O2 Difference Respiratory Index Glucose Lactate Vent Mode FiO2 Inspiratory BiPAP Expiratory BiPAP Sodium Potassium Chloride Carbon Dioxide Anion Gap BUN Creatinine Est GFR ( Amer) Est GFR (Non-Af Amer) POC Glucose (mg/dL) 320 H Random Glucose Calcium Magnesium Total Bilirubin AST ALT Alkaline Phosphatase Total Creatine Kinase 44 L CK-MB (Mass) 1.08 Troponin I < 0.0120 NT-Pro-B Natriuret Pep Total Protein Albumin Globulin Albumin/Globulin Ratio Arterial Blood Potassium Urine Color Yellow Urine Clarity Clear Urine pH 6.0 Ur Specific [place] 1.014 Urine Protein Negative Urine Glucose (UA) 3+ H Urine Ketones Trace Urine Blood Negative Urine Nitrate Negative Urine Bilirubin Negative Urine Urobilinogen Normal Ur Leukocyte Esterase Neg Urine WBC (Auto) 1 Urine RBC (Auto) < 1 Influenza Typ A,B (EIA) 08/23/17 08/23/17 08/23/17 16:13 16:22 21:36 WBC RBC Hgb Hct MCV MCH MCHC RDW Plt Count MPV Neut % (Auto) Lymph % (Auto) [place] % (Auto) Eos % (Auto) Baso % (Auto) Neut # Lymph # [place] # Eos # Baso # PT INR APTT Puncture Site pCO2 pO2 HCO3 ABG pH ABG Total CO2 ABG O2 Saturation ABG Base Excess Jesus Test ABG Potassium A-a O2 Difference Respiratory Index Glucose Lactate Vent Mode FiO2 Inspiratory BiPAP Expiratory BiPAP Sodium Potassium Chloride Carbon Dioxide Anion Gap BUN Creatinine Est GFR ( Amer) Est GFR (Non-Af Amer) POC Glucose (mg/dL) 309 H 281 H Random Glucose Calcium Magnesium Total Bilirubin AST ALT Alkaline Phosphatase Total Creatine Kinase 43 L CK-MB (Mass) 1.36 Troponin I < 0.0120 NT-Pro-B Natriuret Pep Total Protein Albumin Globulin Albumin/Globulin Ratio Arterial Blood Potassium Urine Color Urine Clarity Urine pH Ur Specific [place] Urine Protein Urine Glucose (UA) Urine Ketones Urine Blood Urine Nitrate Urine Bilirubin Urine Urobilinogen Ur Leukocyte Esterase Urine WBC (Auto) Urine RBC (Auto) Influenza Typ A,B (EIA) Assessment & Plan (1) Flu Assessment and Plan: Pt has flu along with that he is dehydrated, hypotensive and weak Status: Acute (2) Acute exacerbation of chronic obstructive airways disease Status: Acute (3) COPD (chronic obstructive pulmonary disease) with emphysema Status: Acute Priority: High (4) Acute and chronic respiratory failure ([id number]) Status: Acute (5) Allergic rhinitis Status: Chronic Priority: Medium (6) PUNEET (generalized anxiety disorder) Status: Chronic (7) Steroid-induced diabetes Status: Chronic
--- NOTE | 2017-08-24 00:37 | CON ---
DATE: CARDIOLOGY CONSULTATION REASON FOR CONSULTATION: Questionable atrial fibrillation. HISTORY OF PRESENT ILLNESS: The patient is 67-year-old male who has advanced chronic obstructive lung disease with multiple admissions for exacerbation of chronic obstructive lung disease, history of colon cancer status post low abdominal resection with ileostomy, presented because of shortness of breath, fever, and cough. The patient had 101.7 fever on admission. The patient did receive flu vaccine for this season, but he tested positive for the influenza H type. The patient was reported to have either AFib or SVT and received ; however, there are no available rhythm strips of that diagnosis. So far, an initial EKG was in sinus tachycardia at a rate of 160. The patient underwent cardiac catheterization in 11/2015, which revealed unremarkable coronary circulation and normal ejection fraction. SOCIAL HISTORY: The patient is a former smoker. He is . Lives with his . MEDICATIONS: Zithromax 500 mg intravenously daily, albuterol inhaler q. 6 hours, metformin 1 g twice a day, Lovenox 40 mg subcutaneously once a day,Singulair 10 mg at bedtime, Robitussin 300 mg q. 4 hours p.r.n., Tamiflu 75 mg once a day, multivitamin one tablet once a day, Zosyn 3.375 g intravenously q. 6 hours. REVIEW OF SYSTEMS: The patient had fever and productive cough. He denies any substernal chest pain. He denies any dizziness or syncope. No vomiting or diarrhea. PHYSICAL EXAMINATION: GENERAL: The patient is an elderly male, was mildly tachypneic. VITAL SIGNS: Blood pressure 95/61, heart rate 91, temperature 97.6. HEENT: Normocephalic. CHEST: He has bilateral rhonchi. HEART: S1 and S2, regular. ABDOMEN: Soft. EXTREMITIES: Trace leg edema. LABORATORY DATA: Today's SMA-7: Sodium 131, potassium 3.9, chloride 91, CO2 of 29, glucose 138, BUN 7, creatinine 0.7. Two sets of troponins are negative. INR is 1.1, PTT 28. Hemoglobin and hematocrit 10.9 and 35.3, white count 14.9, platelet count 388,000. EKG revealed sinus tachycardia at a rate of 160, left posterior fascicular block. Chest x-ray revealed nodular density at the right lung base; it may represent shadow with ribs and vessels versus nipple shadow versus a small nodule. The most recent echo in 02/2017 revealed ejection fraction estimated at more than 70%, diastolic dysfunction, mild mitral insufficiency. ASSESSMENT: 1. Questionable paroxysmal atrial fibrillation, it has not been documented so far. 2. Exacerbation of chronic obstructive lung disease. 3. Physiologic sinus tachycardia. 4. Influenza. 5. History of colorectal cancer status post ileostomy. 6. Mild anemia. RECOMMENDATIONS: Continue IV Zithromax and IV Zosyn. Continue Tamiflu at 75 mg twice a day. Continue Solu-Medrol 40 mg intravenous q. 8 hours, Robitussin at 300 mg q. 4 hours p.r.n., Lovenox at mg subcutaneously daily. Continue current bronchodilators. The patient is not a suitable candidate for beta blockers. Mukesh Correia MD
[2017-08-24] MEDS: Albuterol-Ipratrop 3 mg / 0.5 (3 ml) UD INH SCH ×4 (01:11→19:55)
[2017-08-24] MEDS: Piperacill/Tazo 3.375gm in Dex 3.375 GM/50 ML BAG IVPB SCH ×4 (01:41→18:30)
[2017-08-24] MEDS: MethylPREDNISolone 40 mg Vial IV SCH ×3 (03:16→18:30)
[2017-08-24] MEDS: Sodium Chloride 0.9% 1,000 ML IV SCH ×2 (03:18→17:02)
[2017-08-24] MEDS: (Novolog) Insulin Aspart, Recombinant 100 u/ml 10 ml vial SC SCH ×4 (08:29→22:23)
[2017-08-24] MEDS: Enoxaparin 40 mg Syringe SC SCH (09:16)
[2017-08-24] MEDS: Multivitamin With Minerals Tab PO SCH (09:17)
[2017-08-24] MEDS: Pantoprazole 40 mg EC Tab PO SCH (09:17)
[2017-08-24] MEDS: Azithromycin 500 MG in Sodium Chloride 0.9% 250 ML IVPB SCH (09:38)
[2017-08-24 09:47] LABS: BASO % 0.1 % (0.0-2.0); EOS % 0.1 % (0.0-4.0); LYMPH # 0.3 K/uL (1.0-4.3); LYMPH % 2.3 % (20.0-40.0); MEAN CELL VOLUME 64.3 fL (80.0-94.0); MEAN CORPUSCULAR HEMOGLOBIN 20.5 pg (27.0-31.0); MEAN CORPUSCULAR HGB CONC 31.9 g/dL (33.0-37.0); MEAN PLATELET VOLUME 7.6 fL (7.2-11.7); MONO # 0.6 K/uL (0.0-0.8); MONO % 5.2 % (0.0-10.0); NEUT # 11.1 K/uL (1.8-7.0); NEUT % 92.3 % (50.0-75.0); PLATELET COUNT 308 K/uL (130-400); RBC 4.14 Mil/uL (4.40-5.90); RED CELL DISTRIBUTION WIDTH 18.2 % (11.5-14.5)
[2017-08-24] MEDS: Budesonide 0.5 mg/2 ml Inhal Susp UD IH SCH ×2 (09:50→19:55)
[2017-08-24] MEDS: Fluticasone-Salmeterol 250-50mcg Diskus INH SCH ×2 (09:52→19:54)
[2017-08-24 09:57] LABS: HEMOGLOBIN 8.5 g/dL (12.0-18.0)
[2017-08-24 10:02] LABS: ALB/GLOB RATIO 1.2 (1.0-2.1); ALBUMIN 3.3 g/dL (3.5-5.0); ALT/SGPT 39 U/L (21-72); AST/SGOT 23 U/L (17-59); BLOOD UREA NITROGEN 12 mg/dL (9-20); CALCIUM 8.2 mg/dl (8.6-10.4); GFR AFRICAN-AMERICAN > 60; GFR NON-AFRICAN AMERICAN > 60; MAGNESIUM 2.2 mg/dL (1.6-2.3)
[2017-08-24] MEDS: guaiFENesin 100 mg/5 ml Syrup UD PO PRN ×3 (10:32→22:29)
[2017-08-24 11:16] LABS: BANDS 7 % (0-2); LYMPHOCYTE 4 % (20-40); MONOCYTE 2 % (0-10); NEUTROPHIL 87 % (50-75); PLATELET ESTIMATE NORMAL (NORMAL); TOTAL CELLS COUNTED 100
[2017-08-24 11:17] LABS: ANISOCYTOSIS MODERATE; HYPOCHROMIC MODERATE; OVALOCYTES MODERATE; POIKILOCYTOSIS SLIGHT
--- NOTE | 2017-08-24 12:59 | CP.PCM.PN ---
Objective - Vital Signs/Intake and Output Vital Signs (last 24 hours): Temp Pulse Resp BP Pulse Ox 97.9 F 101 H 23 109/58 L 95 08/24/17 12:00 08/24/17 10:23 08/24/17 10:23 08/23/17 23:49 08/24/17 12:00 Intake and Output: 08/24/17 08/24/17 06:59 18:59 Intake Total 1440 700 Output Total 1425 Balance 15 700 - Medications Medications: Current Medications Al Hydrox/Mg Hydrox/Simethicone (Maalox 30 Ml) 30 ml PO Q6H PRN PRN Reason: Indigestion / Heartburn Albuterol/Ipratropium (Duoneb 3 Mg/0.5 Mg (3 Ml) Ud) 3 ml INH RQ6 [facility] Last Admin: 08/24/17 07:24 Dose: 3 ml Budesonide (Pulmicort Respules) 1 mg IH RQ12 [facility] Last Admin: 08/24/17 09:50 Dose: 0.5 mg Enoxaparin Sodium (Lovenox) 40 mg SC DAILY [facility] Last Admin: 08/24/17 09:16 Dose: 40 mg Guaifenesin (Robitussin) 300 mg PO Q4H PRN PRN Reason: Cough Last Admin: 08/24/17 10:32 Dose: 300 mg Azithromycin 500 mg/ Sodium (Chloride) 250 mls @ 250 mls/hr IVPB DAILY [facility] Last Admin: 08/24/17 09:38 Dose: 250 mls/hr Piperacillin Sod/Tazobactam Sod (Zosyn 3.375 Gm Iv Premix) 3.375 gm in 50 mls @ 100 mls/hr IVPB Q6H [facility] Last Admin: 08/24/17 12:50 Dose: 100 mls/hr Sodium Chloride (Sodium Chloride 0.9%) 1,000 mls @ 100 mls/hr IV .Q10H [facility] Last Admin: 08/24/17 03:18 Dose: 100 mls/hr Insulin Aspart (Novolog) 0 unit SC ACHS [facility] PRN Reason: Protocol Last Admin: 08/24/17 11:54 Dose: 3 unit Magnesium Hydroxide (Milk Of Magnesia) 30 ml PO DAILY PRN PRN Reason: Constipation Last Admin: 08/23/17 09:10 Dose: 30 ml Metformin HCl (Glucophage) 1,000 mg PO BID [facility] Last Admin: 08/24/17 09:18 Dose: 1,000 mg Methylprednisolone (Solu-Medrol) 40 mg IV Q8H [facility] Last Admin: 08/24/17 10:32 Dose: 40 mg Montelukast Sodium (Singulair) 10 mg PO HS [facility] Last Admin: 08/23/17 21:54 Dose: 10 mg Multivitamins/Minerals (Therapeutic-M Tab) 1 tab PO DAILY [facility] Last Admin: 08/24/17 09:17 Dose: 1 tab Oseltamivir Phosphate (Tamiflu Cap) 75 mg PO BID [facility] Stop: 08/28/17 10:16 Last Admin: 08/24/17 09:17 Dose: 75 mg Pantoprazole Sodium (Protonix Ec Tab) 40 mg PO DAILY [facility] Last Admin: 08/24/17 09:17 Dose: 40 mg Pregabalin (Lyrica) 50 mg PO BID [facility] Last Admin: 08/24/17 09:18 Dose: 50 mg Roflumilast (Daliresp) 500 mcg PO DAILY [facility] Last Admin: 08/24/17 09:19 Dose: 500 mcg Fluticasone/Salmeterol (Advair Diskus 250/50) 1 puff INH RBID [facility] Last Admin: 08/24/17 09:52 Dose: 1 puff - Labs Labs: 08/24/17 09:42 08/24/17 09:42 PT 12.6 SECONDS (9.7-12.2) H 08/23/17 04:39 INR 1.1 08/23/17 04:39 APTT 28 SECONDS (21-34) 08/23/17 04:39 Assessment and Plan (1) Acute exacerbation of chronic obstructive airways disease Status: Acute
[2017-08-24 13:58] LABS: BASO % 0.1 % (0.0-2.0); HEMOGLOBIN 8.8 g/dL (12.0-18.0); LYMPH # 0.4 K/uL (1.0-4.3); LYMPH % 2.5 % (20.0-40.0); MEAN CELL VOLUME 65.2 fL (80.0-94.0); MEAN CORPUSCULAR HEMOGLOBIN 20.9 pg (27.0-31.0); MEAN PLATELET VOLUME 8.2 fL (7.2-11.7); MONO # 0.5 K/uL (0.0-0.8); MONO % 3.6 % (0.0-10.0); NEUT # 14.3 K/uL (1.8-7.0); NEUT % 93.8 % (50.0-75.0); PLATELET COUNT 333 K/uL (130-400); RBC 4.22 Mil/uL (4.40-5.90); RED CELL DISTRIBUTION WIDTH 18.4 % (11.5-14.5); WHITE BLOOD COUNT 15.2 K/uL (4.8-10.8)
[2017-08-24 15:00] LABS: BANDS 1 % (0-2); LYMPHOCYTE 2 % (20-40); MONOCYTE 2 % (0-10); NEUTROPHIL 95 % (50-75); TOTAL CELLS COUNTED 100
[2017-08-24 15:03] LABS: ANISOCYTOSIS SLIGHT; HYPOCHROMIC MODERATE; PLATELET ESTIMATE NORMAL (NORMAL); POLYCHROMIC SLIGHT
[2017-08-24 15:05] LABS: MICROCYTOSIS MARKED; OVALOCYTES MODERATE
--- NOTE | 2017-08-24 16:19 | PN ---
DATE: SUBJECTIVE: The patient is still short of breath, in sinus tachycardia and wheezing. He denies retrosternal chest pain. PHYSICAL EXAMINATION: VITAL SIGNS: Blood pressure 114/64, heart rate 102, temperature 97.6, and respirations 23. HEENT: Pale conjunctivae. CHEST: Bilateral expiratory wheezing. HEART: S1 and S2, regular. EXTREMITIES: No pedal edema. LABORATORY DATA: SMA-7; sodium 132, potassium 4.2, chloride 97, CO2 of 28, glucose 196, BUN 12, creatinine 0.6. Hemoglobin and hematocrit of 8.5 and 26.6, white count 12.0, platelet count 308,000. ASSESSMENT: 1. Exacerbation of chronic obstructive lung disease. 2. Questionable atrial fibrillation on presentation, it has not been documented yet. 3. History of colorectal cancer, status post anterior approach resection with ileostomy. 4. Anemia. 5. Influenza H type. RECOMMENDATIONS: Case was discussed with STRUCTURAL TECHNICIAN. Continue IV Zithromax, IV Zosyn, and oral Tamiflu. Continue subcutaneous Lovenox at bronchodilators. Surgical consult has been requested. Mukesh Correia MD
--- NOTE | 2017-08-24 23:33 | CP.PCM.PN ---
Subjective - Date & Time of Evaluation Date of Evaluation: 08/24/17 Time of Evaluation: 18:45 - Subjective Subjective: Pt seen and evaluated at bedside , is feeling better, he is more alert, less short of breath, he is c/o weakness , dizziness Objective - Vital Signs/Intake and Output Vital Signs (last 24 hours): Temp Pulse Resp BP Pulse Ox 98.3 F 104 H 23 109/58 L 97 08/24/17 20:00 08/24/17 20:16 08/24/17 10:23 08/23/17 23:49 08/24/17 16:00 Intake and Output: 08/24/17 08/25/17 18:59 06:59 Intake Total 1400 1160 Output Total 1300 950 Balance 100 210 - Medications Medications: Current Medications Al Hydrox/Mg Hydrox/Simethicone (Maalox 30 Ml) 30 ml PO Q6H PRN PRN Reason: Indigestion / Heartburn Albuterol/Ipratropium (Duoneb 3 Mg/0.5 Mg (3 Ml) Ud) 3 ml INH RQ6 [facility] Last Admin: 08/24/17 19:55 Dose: 3 ml Budesonide (Pulmicort Respules) 1 mg IH RQ12 [facility] Last Admin: 08/24/17 19:55 Dose: 0.5 mg Enoxaparin Sodium (Lovenox) 40 mg SC DAILY [facility] Last Admin: 08/24/17 09:16 Dose: 40 mg Guaifenesin (Robitussin) 300 mg PO Q4H PRN PRN Reason: Cough Last Admin: 08/24/17 22:29 Dose: 300 mg Azithromycin 500 mg/ Sodium (Chloride) 250 mls @ 250 mls/hr IVPB DAILY [facility] Last Admin: 08/24/17 09:38 Dose: 250 mls/hr Piperacillin Sod/Tazobactam Sod (Zosyn 3.375 Gm Iv Premix) 3.375 gm in 50 mls @ 100 mls/hr IVPB Q6H [facility] Last Admin: 08/24/17 18:30 Dose: 100 mls/hr Sodium Chloride (Sodium Chloride 0.9%) 1,000 mls @ 100 mls/hr IV .Q10H [facility] Last Admin: 08/24/17 17:02 Dose: 100 mls/hr Ferric Sodium Gluconate Complex 125 mg/ Sodium Chloride 110 mls @ 220 mls/hr IVPB DAILY [facility] Stop: 09/02/17 10:01 Insulin Aspart (Novolog) 0 unit SC ACHS [facility] PRN Reason: Protocol Last Admin: 08/24/17 22:23 Dose: Not Given Magnesium Hydroxide (Milk Of Magnesia) 30 ml PO DAILY PRN PRN Reason: Constipation Last Admin: 08/23/17 09:10 Dose: 30 ml Metformin HCl (Glucophage) 1,000 mg PO BID [facility] Last Admin: 08/24/17 17:03 Dose: 1,000 mg Methylprednisolone (Solu-Medrol) 40 mg IV Q8H [facility] Last Admin: 08/24/17 18:30 Dose: 40 mg Montelukast Sodium (Singulair) 10 mg PO HS [facility] Last Admin: 08/24/17 22:26 Dose: 10 mg Multivitamins/Minerals (Therapeutic-M Tab) 1 tab PO DAILY [facility] Last Admin: 08/24/17 09:17 Dose: 1 tab Oseltamivir Phosphate (Tamiflu Cap) 75 mg PO BID [facility] Stop: 08/28/17 10:16 Last Admin: 08/24/17 17:05 Dose: 75 mg Pantoprazole Sodium (Protonix Ec Tab) 40 mg PO DAILY [facility] Last Admin: 08/24/17 09:17 Dose: 40 mg Pregabalin (Lyrica) 50 mg PO BID [facility] Last Admin: 08/24/17 17:04 Dose: 50 mg Roflumilast (Daliresp) 500 mcg PO DAILY [facility] Last Admin: 08/24/17 09:19 Dose: 500 mcg Fluticasone/Salmeterol (Advair Diskus 250/50) 1 puff INH RBID [facility] Last Admin: 08/24/17 19:54 Dose: 1 puff - Labs Labs: 08/24/17 13:43 08/24/17 09:42 PT 12.6 SECONDS (9.7-12.2) H 08/23/17 04:39 INR 1.1 08/23/17 04:39 APTT 28 SECONDS (21-34) 08/23/17 04:39 - Constitutional Appears: No Acute Distress - Head Exam Head Exam: ATRAUMATIC, NORMAL INSPECTION, NORMOCEPHALIC - Eye Exam Eye Exam: EOMI, Normal appearance, PERRL Pupil Exam: NORMAL ACCOMODATION, PERRL - ENT Exam ENT Exam: Mucous Membranes Moist, Normal Exam - Neck Exam Neck Exam: Full ROM, Normal Inspection. absent: Lymphadenopathy - Respiratory Exam Respiratory Exam: Decreased Breath Sounds - Cardiovascular Exam Cardiovascular Exam: REGULAR RHYTHM, +S1, +S2. absent: Murmur - GI/Abdominal Exam GI & Abdominal Exam: Soft, Normal Bowel Sounds. absent: Tenderness Assessment and Plan (1) Flu Assessment & Plan: tamiflu. nebulizer. IV fluids BIPAP PRN Status: Acute (2) Acute exacerbation of chronic obstructive airways disease Status: Acute (3) COPD (chronic obstructive pulmonary disease) with emphysema Status: Acute (4) Acute and chronic respiratory failure ([id number]) Status: Acute (5) Allergic rhinitis Status: Chronic (6) PUNEET (generalized anxiety disorder) Status: Chronic (7) Steroid-induced diabetes Status: Chronic
[2017-08-25] MEDS: Sodium Chloride 0.9% 1,000 ML IV SCH ×5 (00:59→19:40)
[2017-08-25] MEDS: Piperacill/Tazo 3.375gm in Dex 3.375 GM/50 ML BAG IVPB SCH ×4 (01:00→18:08)
[2017-08-25] MEDS: Albuterol-Ipratrop 3 mg / 0.5 (3 ml) UD INH SCH ×4 (02:15→19:22)
[2017-08-25] MEDS: MethylPREDNISolone 40 mg Vial IV SCH ×3 (03:15→18:08)
[2017-08-25] MEDS: Budesonide 0.5 mg/2 ml Inhal Susp UD IH SCH ×2 (07:27→19:22)
[2017-08-25] MEDS: Fluticasone-Salmeterol 250-50mcg Diskus INH SCH ×2 (07:27→19:22)
[2017-08-25] MEDS: (Novolog) Insulin Aspart, Recombinant 100 u/ml 10 ml vial SC SCH ×4 (08:18→21:18)
[2017-08-25] MEDS: guaiFENesin 100 mg/5 ml Syrup UD PO PRN ×2 (08:23→21:20)
[2017-08-25] MEDS ORDERED: Ferric Sodium Gluconat Complex 62.5 mg/5 ml Vial ONE (09:34)
[2017-08-25] MEDS: Multivitamin With Minerals Tab PO SCH (09:46)
[2017-08-25] MEDS: Ferric Sodium Gluconat Complex 125 MG in Sodium Chloride 0.9% 100 ML IVPB SCH (09:46)
[2017-08-25] MEDS: Pantoprazole 40 mg EC Tab PO SCH (09:46)
[2017-08-25] MEDS: Enoxaparin 40 mg Syringe SC SCH (09:49)
[2017-08-25] MEDS: Azithromycin 500 MG in Sodium Chloride 0.9% 250 ML IVPB SCH (09:52)
[2017-08-25] MEDS ORDERED: Pneumococcal 23-Valent Vaccine IM ONE (10:00)
[2017-08-25] MEDS ORDERED: Ferric Sodium Gluconat Complex 62.5 mg/5 ml Vial IVPB SCH (10:00)
--- NOTE | 2017-08-25 17:38 | CP.PCM.PN ---
Subjective - Date & Time of Evaluation Date of Evaluation: 08/25/17 Time of Evaluation: 17:25 - Subjective Subjective: the patient seen and examined Less shortness of breath Droplet precaution for flu afebrile Objective - Vital Signs/Intake and Output Vital Signs (last 24 hours): Temp Pulse Resp BP Pulse Ox 98.2 F 101 H 14 120/68 99 08/25/17 16:00 08/25/17 16:00 08/25/17 16:00 08/25/17 15:49 08/25/17 16:00 Intake and Output: 08/25/17 08/25/17 06:59 18:59 Intake Total 1560 1150 Output Total 1900 600 Balance -340 550 - Medications Medications: Current Medications Al Hydrox/Mg Hydrox/Simethicone (Maalox 30 Ml) 30 ml PO Q6H PRN PRN Reason: Indigestion / Heartburn Albuterol/Ipratropium (Duoneb 3 Mg/0.5 Mg (3 Ml) Ud) 3 ml INH RQ6 [facility] Last Admin: 08/25/17 14:08 Dose: 3 ml Alprazolam (Xanax) 0.25 mg PO HS [facility] Budesonide (Pulmicort Respules) 1 mg IH RQ12 [facility] Last Admin: 08/25/17 07:27 Dose: 0.5 mg Enoxaparin Sodium (Lovenox) 40 mg SC DAILY [facility] Last Admin: 08/25/17 09:49 Dose: 40 mg Guaifenesin (Robitussin) 300 mg PO Q4H PRN PRN Reason: Cough Last Admin: 08/25/17 08:23 Dose: 300 mg Azithromycin 500 mg/ Sodium (Chloride) 250 mls @ 250 mls/hr IVPB DAILY [facility] Last Admin: 08/25/17 09:52 Dose: 250 mls/hr Piperacillin Sod/Tazobactam Sod (Zosyn 3.375 Gm Iv Premix) 3.375 gm in 50 mls @ 100 mls/hr IVPB Q6H [facility] Last Admin: 08/25/17 13:09 Dose: 100 mls/hr Sodium Chloride (Sodium Chloride 0.9%) 1,000 mls @ 100 mls/hr IV .Q10H [facility] Last Admin: 08/25/17 10:41 Dose: Not Given Ferric Sodium Gluconate Complex 125 mg/ Sodium Chloride 110 mls @ 220 mls/hr IVPB DAILY [facility] Stop: 09/02/17 10:01 Last Admin: 08/25/17 09:46 Dose: 220 mls/hr Insulin Aspart (Novolog) 0 unit SC ACHS [facility] PRN Reason: Protocol Last Admin: 08/25/17 16:40 Dose: 2 unit Magnesium Hydroxide (Milk Of Magnesia) 30 ml PO DAILY PRN PRN Reason: Constipation Last Admin: 08/23/17 09:10 Dose: 30 ml Metformin HCl (Glucophage) 1,000 mg PO BID [facility] Last Admin: 08/25/17 09:46 Dose: 1,000 mg Methylprednisolone (Solu-Medrol) 40 mg IV Q8H [facility] Last Admin: 08/25/17 11:51 Dose: 40 mg Montelukast Sodium (Singulair) 10 mg PO HS [facility] Last Admin: 08/24/17 22:26 Dose: 10 mg Multivitamins/Minerals (Therapeutic-M Tab) 1 tab PO DAILY [facility] Last Admin: 08/25/17 09:46 Dose: 1 tab Oseltamivir Phosphate (Tamiflu Cap) 75 mg PO BID [facility] Stop: 08/28/17 10:16 Last Admin: 08/25/17 09:48 Dose: 75 mg Pantoprazole Sodium (Protonix Ec Tab) 40 mg PO DAILY [facility] Last Admin: 08/25/17 09:46 Dose: 40 mg Pregabalin (Lyrica) 50 mg PO BID [facility] Last Admin: 08/25/17 09:46 Dose: 50 mg Roflumilast (Daliresp) 500 mcg PO DAILY [facility] Last Admin: 08/25/17 10:43 Dose: 500 mcg Fluticasone/Salmeterol (Advair Diskus 250/50) 1 puff INH RBID [facility] Last Admin: 08/25/17 07:27 Dose: 1 puff - Labs Labs: 08/24/17 13:43 08/24/17 09:42 PT 12.6 SECONDS (9.7-12.2) H 08/23/17 04:39 INR 1.1 08/23/17 04:39 APTT 28 SECONDS (21-34) 08/23/17 04:39 - Head Exam Head Exam: ATRAUMATIC, NORMOCEPHALIC - Eye Exam Eye Exam: Normal appearance - ENT Exam ENT Exam: Mucous Membranes Moist - Neck Exam Neck Exam: Normal Inspection - Respiratory Exam Respiratory Exam: Decreased Breath Sounds - Cardiovascular Exam Cardiovascular Exam: REGULAR RHYTHM Assessment and Plan (1) Acute exacerbation of chronic obstructive airways disease Assessment & Plan: continue IV steroids Nebulizer treatment Tamiflu BiPAP as needed Status: Acute
--- NOTE | 2017-08-25 19:52 | PN ---
DATE: FOLLOWUP SUBJECTIVE: The patient is still short of breath and wheezing. He has mild abdominal discomfort. He tolerated his food today. PHYSICAL EXAMINATION: VITAL SIGNS: Blood pressure 103/67, heart rate 97, temperature 98, respirations 19. HEENT: Normocephalic. CHEST: Bilateral expiratory wheezing. HEART: S1 and S2, regular. ABDOMEN: Soft. EXTREMITIES: No edema. LABORATORY DATA: Today's blood sugars are 207 and 177 respectively. ASSESSMENT: 1. Exacerbation of chronic obstructive lung disease. 2. Questionable paroxysmal atrial fibrillation. 3. Status post resection of colorectal mass and ileostomy. 4. Anemia. RECOMMENDATIONS: Continue current IV Zithromax 500 mg daily and Zosyn to 3.375 intravenously q.6 hours, Tamiflu 75 mg twice a day. Continue subcutaneous Lovenox 40 mg once a day, Solu-Medrol 40 mg intravenously q.8 hours. The patient will be evaluated by Dr. Nieto for planned future reversal of ileostomy. Mukesh Correia MD
--- NOTE | 2017-08-25 23:47 | CP.PCM.PN ---
Subjective - Date & Time of Evaluation Date of Evaluation: 08/25/17 Time of Evaluation: 17:00 - Subjective Subjective: Pt seen and examined, is anxious , is feeling better, still tacycardic, tacypneac, less cough, less wheezing Objective - Vital Signs/Intake and Output Vital Signs (last 24 hours): Temp Pulse Resp BP Pulse Ox 97.6 F 97 H 20 120/68 100 08/25/17 20:00 08/25/17 18:00 08/25/17 18:00 08/25/17 15:49 08/25/17 18:00 Intake and Output: 08/25/17 08/26/17 18:59 06:59 Intake Total 1500 100 Output Total 600 500 Balance 900 -400 - Medications Medications: Current Medications Al Hydrox/Mg Hydrox/Simethicone (Maalox 30 Ml) 30 ml PO Q6H PRN PRN Reason: Indigestion / Heartburn Albuterol/Ipratropium (Duoneb 3 Mg/0.5 Mg (3 Ml) Ud) 3 ml INH RQ6 [facility] Last Admin: 08/25/17 19:22 Dose: 3 ml Alprazolam (Xanax) 0.25 mg PO HS [facility] Last Admin: 08/25/17 21:24 Dose: 0.25 mg Alprazolam (Xanax) 0.5 mg PO BID PRN PRN Reason: Anxiety Budesonide (Pulmicort Respules) 1 mg IH RQ12 [facility] Last Admin: 08/25/17 19:22 Dose: 0.5 mg Enoxaparin Sodium (Lovenox) 40 mg SC DAILY [facility] Last Admin: 08/25/17 09:49 Dose: 40 mg Guaifenesin (Robitussin) 300 mg PO Q4H PRN PRN Reason: Cough Last Admin: 08/25/17 21:20 Dose: 300 mg Azithromycin 500 mg/ Sodium (Chloride) 250 mls @ 250 mls/hr IVPB DAILY [facility] Last Admin: 08/25/17 09:52 Dose: 250 mls/hr Piperacillin Sod/Tazobactam Sod (Zosyn 3.375 Gm Iv Premix) 3.375 gm in 50 mls @ 100 mls/hr IVPB Q6H [facility] Last Admin: 08/25/17 18:08 Dose: 100 mls/hr Sodium Chloride (Sodium Chloride 0.9%) 1,000 mls @ 100 mls/hr IV .Q10H [facility] Last Admin: 08/25/17 19:40 Dose: Not Given Ferric Sodium Gluconate Complex 125 mg/ Sodium Chloride 110 mls @ 220 mls/hr IVPB DAILY [facility] Stop: 09/02/17 10:01 Last Admin: 08/25/17 09:46 Dose: 220 mls/hr Insulin Aspart (Novolog) 0 unit SC ACHS [facility] PRN Reason: Protocol Last Admin: 08/25/17 21:18 Dose: Not Given Magnesium Hydroxide (Milk Of Magnesia) 30 ml PO DAILY PRN PRN Reason: Constipation Last Admin: 08/23/17 09:10 Dose: 30 ml Metformin HCl (Glucophage) 1,000 mg PO BID [facility] Last Admin: 08/25/17 18:07 Dose: 1,000 mg Methylprednisolone (Solu-Medrol) 40 mg IV Q8H [facility] Last Admin: 08/25/17 18:08 Dose: 40 mg Montelukast Sodium (Singulair) 10 mg PO HS [facility] Last Admin: 08/25/17 21:20 Dose: 10 mg Multivitamins/Minerals (Therapeutic-M Tab) 1 tab PO DAILY [facility] Last Admin: 08/25/17 09:46 Dose: 1 tab Oseltamivir Phosphate (Tamiflu Cap) 75 mg PO BID [facility] Stop: 08/28/17 10:16 Last Admin: 08/25/17 18:07 Dose: 75 mg Pantoprazole Sodium (Protonix Ec Tab) 40 mg PO DAILY [facility] Last Admin: 08/25/17 09:46 Dose: 40 mg Pregabalin (Lyrica) 50 mg PO BID [facility] Last Admin: 08/25/17 18:38 Dose: 50 mg Roflumilast (Daliresp) 500 mcg PO DAILY [facility] Last Admin: 08/25/17 10:43 Dose: 500 mcg Fluticasone/Salmeterol (Advair Diskus 250/50) 1 puff INH RBID [facility] Last Admin: 08/25/17 19:22 Dose: 1 puff - Labs Labs: 08/24/17 13:43 08/24/17 09:42 PT 12.6 SECONDS (9.7-12.2) H 08/23/17 04:39 INR 1.1 08/23/17 04:39 APTT 28 SECONDS (21-34) 08/23/17 04:39 - Constitutional Appears: No Acute Distress - Head Exam Head Exam: ATRAUMATIC, NORMAL INSPECTION, NORMOCEPHALIC - Eye Exam Eye Exam: EOMI, Normal appearance, PERRL Pupil Exam: NORMAL ACCOMODATION, PERRL - Respiratory Exam Respiratory Exam: Decreased Breath Sounds, Wheezes - Cardiovascular Exam Cardiovascular Exam: REGULAR RHYTHM, +S1, +S2. absent: Murmur - GI/Abdominal Exam GI & Abdominal Exam: Soft, Normal Bowel Sounds. absent: Tenderness Assessment and Plan (1) Flu Status: Acute (2) Acute exacerbation of chronic obstructive airways disease Status: Acute (3) COPD (chronic obstructive pulmonary disease) with emphysema Status: Acute (4) Acute and chronic respiratory failure ([id number]) Status: Acute (5) Allergic rhinitis Status: Chronic (6) PUNEET (generalized anxiety disorder) Status: Chronic (7) Steroid-induced diabetes Status: Chronic
[2017-08-26] MEDS: Albuterol-Ipratrop 3 mg / 0.5 (3 ml) UD INH SCH ×4 (01:11→19:59)
[2017-08-26] MEDS: MethylPREDNISolone 40 mg Vial IV SCH ×3 (03:00→18:18)
[2017-08-26] MEDS: Sodium Chloride 0.9% 1,000 ML IV SCH (05:53)
[2017-08-26] MEDS: Piperacill/Tazo 3.375gm in Dex 3.375 GM/50 ML BAG IVPB SCH ×4 (06:00→18:18)
[2017-08-26] MEDS: (Novolog) Insulin Aspart, Recombinant 100 u/ml 10 ml vial SC SCH ×4 (07:43→21:49)
[2017-08-26] MEDS: Budesonide 0.5 mg/2 ml Inhal Susp UD IH SCH ×2 (08:19→19:59)
[2017-08-26] MEDS: Fluticasone-Salmeterol 250-50mcg Diskus INH SCH ×2 (08:20→19:58)
[2017-08-26] MEDS: Ferric Sodium Gluconat Complex 125 MG in Sodium Chloride 0.9% 100 ML IVPB SCH (10:07)
[2017-08-26] MEDS: Azithromycin 500 MG in Sodium Chloride 0.9% 250 ML IVPB SCH (10:07)
[2017-08-26] MEDS: Multivitamin With Minerals Tab PO SCH (10:08)
[2017-08-26] MEDS: Pantoprazole 40 mg EC Tab PO SCH (10:08)
[2017-08-26] MEDS: Enoxaparin 40 mg Syringe SC SCH (10:09)
--- NOTE | 2017-08-26 16:14 | PN ---
DATE: FOLLOWUP SUBJECTIVE: The patient is still short of breath and wheezing. He denies any chest pain. He complains of mild abdominal discomfort. PHYSICAL EXAMINATION: VITAL SIGNS: Blood pressure 111/76, heart rate 119, temperature 98, respirations 21. HEENT: Normocephalic. CHEST: Bilateral expiratory wheezing. HEART: S1 and S2 regular. ABDOMEN: Soft. EXTREMITIES: No edema. LABORATORY DATA: Today's blood sugar is 175 and 134 respectively. ASSESSMENT: 1. Chronic obstructive lung disease. 2. Secondary pulmonary hypertension. 3. Sinus tachycardia, which is physiologic response to the patient's current respiratory condition. 4. Questionable history of atrial fibrillation. RECOMMENDATIONS: Continue current bronchodilators including albuterol and Advair. Continue Solu-Medrol 40 mg intravenously q. 8 hours, Tamiflu at 75 mg twice a day, Zosyn 3.375 intravenously q. 6 hours and Zithromax 500 mg intravenously once a day. The patient is awaiting telemetry transfer. Mukesh Correia MD
--- NOTE | 2017-08-26 21:39 | CP.PCM.PN ---
Subjective - Date & Time of Evaluation Date of Evaluation: 08/26/17 Time of Evaluation: 17:35 - Subjective Subjective: Pt seen and examined, afebrile, less cough, less wheezing, less anxious on medical management Objective - Vital Signs/Intake and Output Vital Signs (last 24 hours): Temp Pulse Resp BP Pulse Ox 97.5 F L 98 H 18 116/59 L 96 08/26/17 20:00 08/26/17 20:30 08/26/17 20:00 08/26/17 20:00 08/26/17 20:00 Intake and Output: 08/26/17 08/27/17 18:59 06:59 Intake Total 2020 150 Output Total 1900 0 Balance 120 150 - Medications Medications: Current Medications Al Hydrox/Mg Hydrox/Simethicone (Maalox 30 Ml) 30 ml PO Q6H PRN PRN Reason: Indigestion / Heartburn Albuterol/Ipratropium (Duoneb 3 Mg/0.5 Mg (3 Ml) Ud) 3 ml INH RQ6 [facility] Last Admin: 08/26/17 19:59 Dose: 3 ml Alprazolam (Xanax) 0.25 mg PO HS [facility] Last Admin: 08/25/17 21:24 Dose: 0.25 mg Alprazolam (Xanax) 0.5 mg PO BID PRN PRN Reason: Anxiety Last Admin: 08/26/17 12:00 Dose: 0.5 mg Budesonide (Pulmicort Respules) 1 mg IH RQ12 [facility] Last Admin: 08/26/17 19:59 Dose: 0.5 mg Enoxaparin Sodium (Lovenox) 40 mg SC DAILY [facility] Last Admin: 08/26/17 10:09 Dose: 40 mg Guaifenesin (Robitussin) 300 mg PO Q4H PRN PRN Reason: Cough Last Admin: 08/25/17 21:20 Dose: 300 mg Azithromycin 500 mg/ Sodium (Chloride) 250 mls @ 250 mls/hr IVPB DAILY [facility] Last Admin: 08/26/17 10:07 Dose: 250 mls/hr Piperacillin Sod/Tazobactam Sod (Zosyn 3.375 Gm Iv Premix) 3.375 gm in 50 mls @ 100 mls/hr IVPB Q6H [facility] Last Admin: 08/26/17 18:18 Dose: 100 mls/hr Ferric Sodium Gluconate Complex 125 mg/ Sodium Chloride 110 mls @ 220 mls/hr IVPB DAILY [facility] Stop: 09/02/17 10:01 Last Admin: 08/26/17 10:07 Dose: 220 mls/hr Insulin Aspart (Novolog) 0 unit SC ACHS [facility] PRN Reason: Protocol Last Admin: 08/26/17 17:09 Dose: 4 unit Magnesium Hydroxide (Milk Of Magnesia) 30 ml PO DAILY PRN PRN Reason: Constipation Last Admin: 08/23/17 09:10 Dose: 30 ml Metformin HCl (Glucophage) 1,000 mg PO BID [facility] Last Admin: 08/26/17 17:10 Dose: 1,000 mg Methylprednisolone (Solu-Medrol) 40 mg IV Q8H [facility] Last Admin: 08/26/17 18:18 Dose: 40 mg Montelukast Sodium (Singulair) 10 mg PO HS [facility] Last Admin: 08/25/17 21:20 Dose: 10 mg Multivitamins/Minerals (Therapeutic-M Tab) 1 tab PO DAILY [facility] Last Admin: 08/26/17 10:08 Dose: 1 tab Oseltamivir Phosphate (Tamiflu Cap) 75 mg PO BID [facility] Stop: 08/28/17 10:16 Last Admin: 08/26/17 17:10 Dose: 75 mg Pantoprazole Sodium (Protonix Ec Tab) 40 mg PO DAILY [facility] Last Admin: 08/26/17 10:08 Dose: 40 mg Pregabalin (Lyrica) 50 mg PO BID [facility] Last Admin: 08/26/17 17:10 Dose: 50 mg Roflumilast (Daliresp) 500 mcg PO DAILY [facility] Last Admin: 08/26/17 10:09 Dose: 500 mcg Fluticasone/Salmeterol (Advair Diskus 250/50) 1 puff INH RBID [facility] Last Admin: 08/26/17 19:58 Dose: 1 puff - Labs Labs: 08/24/17 13:43 08/24/17 09:42 PT 12.6 SECONDS (9.7-12.2) H 08/23/17 04:39 INR 1.1 08/23/17 04:39 APTT 28 SECONDS (21-34) 08/23/17 04:39 - Constitutional Appears: No Acute Distress - Head Exam Head Exam: ATRAUMATIC, NORMAL INSPECTION, NORMOCEPHALIC - Eye Exam Eye Exam: EOMI, Normal appearance, PERRL Pupil Exam: NORMAL ACCOMODATION, PERRL - Respiratory Exam Respiratory Exam: Decreased Breath Sounds, Rales, Wheezes - Cardiovascular Exam Cardiovascular Exam: REGULAR RHYTHM, +S1, +S2. absent: Murmur - GI/Abdominal Exam GI & Abdominal Exam: Soft, Normal Bowel Sounds. absent: Tenderness Assessment and Plan (1) Flu Status: Acute (2) Acute exacerbation of chronic obstructive airways disease Status: Acute (3) COPD (chronic obstructive pulmonary disease) with emphysema Status: Acute (4) Acute and chronic respiratory failure ([id number]) Status: Acute (5) Allergic rhinitis Status: Chronic (6) PUNEET (generalized anxiety disorder) Status: Chronic (7) Steroid-induced diabetes Status: Chronic
[2017-08-27] MEDS: Albuterol-Ipratrop 3 mg / 0.5 (3 ml) UD INH SCH ×4 (01:12→19:09)
[2017-08-27] MEDS: Piperacill/Tazo 3.375gm in Dex 3.375 GM/50 ML BAG IVPB SCH ×4 (01:24→18:47)
[2017-08-27] MEDS: MethylPREDNISolone 40 mg Vial IV SCH ×3 (02:53→18:47)
--- NOTE | 2017-08-27 05:34 | CARD ---
APPROVED REPORT EKG Measurement Heart [id number] MD [id number] <Conclusion> Sinus tachycardia Left posterior fascicular block Abnormal ECG
[2017-08-27] MEDS: Fluticasone-Salmeterol 250-50mcg Diskus INH SCH ×2 (07:16→19:10)
[2017-08-27] MEDS: Budesonide 0.5 mg/2 ml Inhal Susp UD IH SCH ×2 (07:16→19:09)
[2017-08-27] MEDS: Pantoprazole 40 mg EC Tab PO SCH (09:11)
[2017-08-27] MEDS: Enoxaparin 40 mg Syringe SC SCH (09:11)
[2017-08-27] MEDS: (Novolog) Insulin Aspart, Recombinant 100 u/ml 10 ml vial SC SCH ×4 (09:12→22:11)
[2017-08-27] MEDS: Multivitamin With Minerals Tab PO SCH (09:12)
[2017-08-27] MEDS: Ferric Sodium Gluconat Complex 125 MG in Sodium Chloride 0.9% 100 ML IVPB SCH (09:52)
[2017-08-27] MEDS: Azithromycin 500 MG in Sodium Chloride 0.9% 250 ML IVPB SCH (09:52)
--- NOTE | 2017-08-27 18:20 | CP.PCM.PN ---
Subjective - Date & Time of Evaluation Date of Evaluation: 08/27/17 Time of Evaluation: 10:30 - Subjective Subjective: Patient seen and examined Still complaining of shortness of breath and wheezing Afebrile Being treated for flu and COPD excessive patient Objective - Vital Signs/Intake and Output Vital Signs (last 24 hours): Temp Pulse Resp BP Pulse Ox 97.9 F 111 H 20 127/70 98 08/27/17 16:00 08/27/17 16:00 08/27/17 16:00 08/27/17 16:00 08/27/17 16:00 Intake and Output: 08/27/17 08/27/17 06:59 18:59 Intake Total 500 1130 Output Total 1550 2200 Balance -1050 -1070 - Medications Medications: Current Medications Al Hydrox/Mg Hydrox/Simethicone (Maalox 30 Ml) 30 ml PO Q6H PRN PRN Reason: Indigestion / Heartburn Albuterol/Ipratropium (Duoneb 3 Mg/0.5 Mg (3 Ml) Ud) 3 ml INH RQ6 [facility] Last Admin: 08/27/17 13:34 Dose: 3 ml Alprazolam (Xanax) 0.25 mg PO HS [facility] Last Admin: 08/26/17 22:19 Dose: 0.25 mg Alprazolam (Xanax) 0.5 mg PO BID PRN PRN Reason: Anxiety Last Admin: 08/27/17 12:09 Dose: 0.5 mg Budesonide (Pulmicort Respules) 1 mg IH RQ12 [facility] Last Admin: 08/27/17 07:16 Dose: 1 mg Enoxaparin Sodium (Lovenox) 40 mg SC DAILY [facility] Last Admin: 08/27/17 09:11 Dose: 40 mg Guaifenesin (Robitussin) 300 mg PO Q4H PRN PRN Reason: Cough Last Admin: 08/25/17 21:20 Dose: 300 mg Azithromycin 500 mg/ Sodium (Chloride) 250 mls @ 250 mls/hr IVPB DAILY [facility] Last Admin: 08/27/17 09:52 Dose: 250 mls/hr Piperacillin Sod/Tazobactam Sod (Zosyn 3.375 Gm Iv Premix) 3.375 gm in 50 mls @ 100 mls/hr IVPB Q6H [facility] Last Admin: 08/27/17 12:03 Dose: 100 mls/hr Ferric Sodium Gluconate Complex 125 mg/ Sodium Chloride 110 mls @ 220 mls/hr IVPB DAILY [facility] Stop: 09/02/17 10:01 Last Admin: 08/27/17 09:52 Dose: 220 mls/hr Insulin Aspart (Novolog) 0 unit SC ACHS [facility] PRN Reason: Protocol Last Admin: 08/27/17 17:06 Dose: 4 unit Magnesium Hydroxide (Milk Of Magnesia) 30 ml PO DAILY PRN PRN Reason: Constipation Last Admin: 08/23/17 09:10 Dose: 30 ml Metformin HCl (Glucophage) 1,000 mg PO BID [facility] Last Admin: 08/27/17 17:06 Dose: 1,000 mg Methylprednisolone (Solu-Medrol) 40 mg IV Q8H [facility] Last Admin: 08/27/17 10:01 Dose: 40 mg Montelukast Sodium (Singulair) 10 mg PO HS [facility] Last Admin: 08/26/17 22:19 Dose: 10 mg Multivitamins/Minerals (Therapeutic-M Tab) 1 tab PO DAILY [facility] Last Admin: 08/27/17 09:12 Dose: 1 tab Oseltamivir Phosphate (Tamiflu Cap) 75 mg PO BID [facility] Stop: 08/28/17 10:16 Last Admin: 08/27/17 17:06 Dose: 75 mg Pantoprazole Sodium (Protonix Ec Tab) 40 mg PO DAILY [facility] Last Admin: 08/27/17 09:11 Dose: 40 mg Pregabalin (Lyrica) 50 mg PO BID [facility] Last Admin: 08/27/17 17:06 Dose: 50 mg Roflumilast (Daliresp) 500 mcg PO DAILY [facility] Last Admin: 08/27/17 09:12 Dose: 500 mcg Fluticasone/Salmeterol (Advair Diskus 250/50) 1 puff INH RBID [facility] Last Admin: 08/27/17 07:16 Dose: 1 puff - Labs Labs: 08/24/17 13:43 08/24/17 09:42 PT 12.6 SECONDS (9.7-12.2) H 08/23/17 04:39 INR 1.1 08/23/17 04:39 APTT 28 SECONDS (21-34) 08/23/17 04:39 Assessment and Plan (1) Acute exacerbation of chronic obstructive airways disease Status: Acute
--- NOTE | 2017-08-27 19:42 | PN ---
DATE: SUBJECTIVE: The patient is mildly short of breath, wheezing and tachycardic, high flow nasal O2 is 97%. PHYSICAL EXAMINATION: VITAL SIGNS: Blood pressure 106/68, heart rate 116, temperature 98, respirations 19. HEENT: Normocephalic. CHEST: Bilateral decreased expiratory wheezing. HEART: S1, S2, regular. EXTREMITIES: No edema. LABORATORY DATA: Today's blood sugars are 202 and 216. ASSESSMENT: 1. Questionable paroxysmal atrial fibrillation. 2. Advanced chronic obstructive lung disease. 3. Secondary pulmonary hypertension. 4. History of colonic resection with ileostomy. 5. Anemia. RECOMMENDATIONS: Continue current bronchodilators, continue IV Zithromax at 500 mg daily, continue Tamiflu at 75 mg twice a day, Zosyn 3.375 g intravenously q. 6 hours, continue Singulair, Solu-Medrol 40 mg intravenously q. 8 hours, continue gluconate infusion. Patient is awaiting telemetry bed. Mukesh Correia MD
[2017-08-27] MEDS: guaiFENesin 100 mg/5 ml Syrup UD PO PRN (22:35)
--- NOTE | 2017-08-27 23:11 | CP.PCM.PN ---
Subjective - Date & Time of Evaluation Date of Evaluation: 08/27/17 Time of Evaluation: 16:50 - Subjective Subjective: Pt seen and evaluated , is coughing, less wheezing ,pt is less short of breath. on tamiflu, nebulizer treatment Objective - Vital Signs/Intake and Output Vital Signs (last 24 hours): Temp Pulse Resp BP Pulse Ox 97.7 F 101 H 17 127/70 99 08/27/17 20:00 08/27/17 21:00 08/27/17 20:00 08/27/17 20:00 08/27/17 20:00 Intake and Output: 08/27/17 08/28/17 18:59 06:59 Intake Total 1430 100 Output Total 2200 550 Balance -770 -450 - Medications Medications: Current Medications Al Hydrox/Mg Hydrox/Simethicone (Maalox 30 Ml) 30 ml PO Q6H PRN PRN Reason: Indigestion / Heartburn Albuterol/Ipratropium (Duoneb 3 Mg/0.5 Mg (3 Ml) Ud) 3 ml INH RQ6 [facility] Last Admin: 08/27/17 19:09 Dose: 3 ml Alprazolam (Xanax) 0.25 mg PO HS [facility] Last Admin: 08/27/17 22:26 Dose: 0.25 mg Alprazolam (Xanax) 0.5 mg PO BID PRN PRN Reason: Anxiety Last Admin: 08/27/17 12:09 Dose: 0.5 mg Budesonide (Pulmicort Respules) 1 mg IH RQ12 [facility] Last Admin: 08/27/17 19:09 Dose: 0.5 mg Enoxaparin Sodium (Lovenox) 40 mg SC DAILY [facility] Last Admin: 08/27/17 09:11 Dose: 40 mg Guaifenesin (Robitussin) 300 mg PO Q4H PRN PRN Reason: Cough Last Admin: 08/27/17 22:35 Dose: 300 mg Azithromycin 500 mg/ Sodium (Chloride) 250 mls @ 250 mls/hr IVPB DAILY [facility] Last Admin: 08/27/17 09:52 Dose: 250 mls/hr Piperacillin Sod/Tazobactam Sod (Zosyn 3.375 Gm Iv Premix) 3.375 gm in 50 mls @ 100 mls/hr IVPB Q6H [facility] Last Admin: 08/27/17 18:47 Dose: 100 mls/hr Ferric Sodium Gluconate Complex 125 mg/ Sodium Chloride 110 mls @ 220 mls/hr IVPB DAILY [facility] Stop: 09/02/17 10:01 Last Admin: 08/27/17 09:52 Dose: 220 mls/hr Insulin Aspart (Novolog) 0 unit SC ACHS [facility] PRN Reason: Protocol Last Admin: 08/27/17 22:11 Dose: Not Given Magnesium Hydroxide (Milk Of Magnesia) 30 ml PO DAILY PRN PRN Reason: Constipation Last Admin: 08/23/17 09:10 Dose: 30 ml Metformin HCl (Glucophage) 1,000 mg PO BID [facility] Last Admin: 08/27/17 17:06 Dose: 1,000 mg Methylprednisolone (Solu-Medrol) 40 mg IV Q8H [facility] Last Admin: 08/27/17 18:47 Dose: 40 mg Montelukast Sodium (Singulair) 10 mg PO HS [facility] Last Admin: 08/27/17 22:26 Dose: 10 mg Multivitamins/Minerals (Therapeutic-M Tab) 1 tab PO DAILY [facility] Last Admin: 08/27/17 09:12 Dose: 1 tab Oseltamivir Phosphate (Tamiflu Cap) 75 mg PO BID [facility] Stop: 08/28/17 10:16 Last Admin: 08/27/17 17:06 Dose: 75 mg Pantoprazole Sodium (Protonix Ec Tab) 40 mg PO DAILY [facility] Last Admin: 08/27/17 09:11 Dose: 40 mg Pregabalin (Lyrica) 50 mg PO BID [facility] Last Admin: 08/27/17 17:06 Dose: 50 mg Roflumilast (Daliresp) 500 mcg PO DAILY [facility] Last Admin: 08/27/17 09:12 Dose: 500 mcg Fluticasone/Salmeterol (Advair Diskus 250/50) 1 puff INH RBID [facility] Last Admin: 08/27/17 19:10 Dose: 1 puff - Labs Labs: 08/24/17 13:43 08/24/17 09:42 PT 12.6 SECONDS (9.7-12.2) H 08/23/17 04:39 INR 1.1 08/23/17 04:39 APTT 28 SECONDS (21-34) 08/23/17 04:39 - Constitutional Appears: No Acute Distress - Head Exam Head Exam: ATRAUMATIC, NORMAL INSPECTION, NORMOCEPHALIC - Eye Exam Eye Exam: EOMI, Normal appearance, PERRL Pupil Exam: NORMAL ACCOMODATION, PERRL - Respiratory Exam Respiratory Exam: Decreased Breath Sounds, Rales, Wheezes - Cardiovascular Exam Cardiovascular Exam: REGULAR RHYTHM, +S1, +S2. absent: Murmur Assessment and Plan (1) Flu Status: Acute (2) Acute exacerbation of chronic obstructive airways disease Status: Acute (3) COPD (chronic obstructive pulmonary disease) with emphysema Status: Acute (4) Acute and chronic respiratory failure ([id number]) Status: Acute (5) Allergic rhinitis Status: Chronic (6) PUNEET (generalized anxiety disorder) Status: Chronic (7) Steroid-induced diabetes Status: Chronic
[2017-08-28] MEDS: Piperacill/Tazo 3.375gm in Dex 3.375 GM/50 ML BAG IVPB SCH ×4 (00:51→18:12)
[2017-08-28] MEDS: Albuterol-Ipratrop 3 mg / 0.5 (3 ml) UD INH SCH ×4 (01:24→19:39)
[2017-08-28] MEDS: MethylPREDNISolone 40 mg Vial IV SCH ×3 (02:33→18:12)
[2017-08-28 06:54] LABS: BASO # 0.1 K/uL (0.0-0.2); BASO % 0.5 % (0.0-2.0); EOS % 0.1 % (0.0-4.0); HEMOGLOBIN 9.7 g/dL (12.0-18.0); LYMPH % 6.2 % (20.0-40.0); MEAN CELL VOLUME 66.3 fL (80.0-94.0); MEAN CORPUSCULAR HEMOGLOBIN 20.3 pg (27.0-31.0); MEAN CORPUSCULAR HGB CONC 30.6 g/dL (33.0-37.0); MEAN PLATELET VOLUME 7.7 fL (7.2-11.7); MONO # 0.7 K/uL (0.0-0.8); MONO % 4.2 % (0.0-10.0); NEUT # 14.2 K/uL (1.8-7.0); NRBC % 0.2 % (0.0-2.0); PLATELET COUNT 309 K/uL (130-400); RBC 4.76 Mil/uL (4.40-5.90); RED CELL DISTRIBUTION WIDTH 18.8 % (11.5-14.5); WHITE BLOOD COUNT 15.9 K/uL (4.8-10.8)
[2017-08-28 07:20] LABS: ALB/GLOB RATIO 1.2 (1.0-2.1); ALBUMIN 3.4 g/dL (3.5-5.0); ALT/SGPT 55 U/L (21-72); AST/SGOT 37 U/L (17-59); BLOOD UREA NITROGEN 12 mg/dL (9-20); CALCIUM 8.2 mg/dl (8.6-10.4); GFR AFRICAN-AMERICAN > 60; GFR NON-AFRICAN AMERICAN > 60
[2017-08-28] MEDS: Budesonide 0.5 mg/2 ml Inhal Susp UD IH SCH ×2 (07:34→19:39)
[2017-08-28] MEDS: Fluticasone-Salmeterol 250-50mcg Diskus INH SCH ×2 (07:34→19:37)
[2017-08-28] MEDS: (Novolog) Insulin Aspart, Recombinant 100 u/ml 10 ml vial SC SCH ×4 (07:43→21:06)
[2017-08-28 08:38] LABS: ANISOCYTOSIS SLIGHT; BANDS 2 % (0-2); LYMPHOCYTE 4 % (20-40); METAMYELOCYTE 1 % (0-0); MICROCYTOSIS MODERATE; MONOCYTE 3 % (0-10); MYELOCYTE 2 % (0-0); NEUTROPHIL 88 % (50-75); PLATELET ESTIMATE NORMAL (NORMAL); TOTAL CELLS COUNTED 100
[2017-08-28 08:39] LABS: BURR CELLS SLIGHT; HYPOCHROMIC MODERATE; OVALOCYTES MODERATE; POIKILOCYTOSIS MODERATE
--- NOTE | 2017-08-28 08:56 | CP.PCM.PN ---
Subjective - Date & Time of Evaluation Date of Evaluation: 08/28/17 Time of Evaluation: 17:00 - Subjective Subjective: Pt is seen and examined at bedside, pt has been accepted to [facility], off tamiflu, he is feeling better Objective - Vital Signs/Intake and Output Vital Signs (last 24 hours): Temp Pulse Resp BP Pulse Ox 97.3 F L 104 H 16 119/73 100 08/28/17 08:00 08/28/17 08:33 08/28/17 08:00 08/28/17 08:00 08/28/17 08:00 Intake and Output: 08/28/17 08/28/17 06:59 18:59 Intake Total 500 Output Total 1800 Balance -1300 - Medications Medications: Current Medications Al Hydrox/Mg Hydrox/Simethicone (Maalox 30 Ml) 30 ml PO Q6H PRN PRN Reason: Indigestion / Heartburn Albuterol/Ipratropium (Duoneb 3 Mg/0.5 Mg (3 Ml) Ud) 3 ml INH RQ6 [facility] Last Admin: 08/28/17 07:34 Dose: 3 ml Alprazolam (Xanax) 0.25 mg PO HS [facility] Last Admin: 08/27/17 22:26 Dose: 0.25 mg Alprazolam (Xanax) 0.5 mg PO BID PRN PRN Reason: Anxiety Last Admin: 08/27/17 12:09 Dose: 0.5 mg Budesonide (Pulmicort Respules) 1 mg IH RQ12 [facility] Last Admin: 08/28/17 07:34 Dose: 0.5 mg Enoxaparin Sodium (Lovenox) 40 mg SC DAILY [facility] Last Admin: 08/27/17 09:11 Dose: 40 mg Guaifenesin (Robitussin) 300 mg PO Q4H PRN PRN Reason: Cough Last Admin: 08/27/17 22:35 Dose: 300 mg Azithromycin 500 mg/ Sodium (Chloride) 250 mls @ 250 mls/hr IVPB DAILY [facility] Last Admin: 08/27/17 09:52 Dose: 250 mls/hr Piperacillin Sod/Tazobactam Sod (Zosyn 3.375 Gm Iv Premix) 3.375 gm in 50 mls @ 100 mls/hr IVPB Q6H [facility] Last Admin: 08/28/17 06:07 Dose: 100 mls/hr Ferric Sodium Gluconate Complex 125 mg/ Sodium Chloride 110 mls @ 220 mls/hr IVPB DAILY [facility] Stop: 09/02/17 10:01 Last Admin: 08/27/17 09:52 Dose: 220 mls/hr Insulin Aspart (Novolog) 0 unit SC ACHS [facility] PRN Reason: Protocol Last Admin: 08/28/17 07:43 Dose: 3 unit Magnesium Hydroxide (Milk Of Magnesia) 30 ml PO DAILY PRN PRN Reason: Constipation Last Admin: 08/23/17 09:10 Dose: 30 ml Metformin HCl (Glucophage) 1,000 mg PO BID [facility] Last Admin: 08/27/17 17:06 Dose: 1,000 mg Methylprednisolone (Solu-Medrol) 40 mg IV Q8H [facility] Last Admin: 08/28/17 02:33 Dose: 40 mg Montelukast Sodium (Singulair) 10 mg PO HS [facility] Last Admin: 08/27/17 22:26 Dose: 10 mg Multivitamins/Minerals (Therapeutic-M Tab) 1 tab PO DAILY [facility] Last Admin: 08/27/17 09:12 Dose: 1 tab Oseltamivir Phosphate (Tamiflu Cap) 75 mg PO BID [facility] Stop: 08/28/17 10:16 Last Admin: 08/27/17 17:06 Dose: 75 mg Pantoprazole Sodium (Protonix Ec Tab) 40 mg PO DAILY [facility] Last Admin: 08/27/17 09:11 Dose: 40 mg Pregabalin (Lyrica) 50 mg PO BID [facility] Last Admin: 08/27/17 17:06 Dose: 50 mg Roflumilast (Daliresp) 500 mcg PO DAILY [facility] Last Admin: 08/27/17 09:12 Dose: 500 mcg Fluticasone/Salmeterol (Advair Diskus 250/50) 1 puff INH RBID [facility] Last Admin: 08/28/17 07:34 Dose: 1 puff - Labs Labs: 08/28/17 06:48 08/28/17 06:49 PT 12.6 SECONDS (9.7-12.2) H 08/23/17 04:39 INR 1.1 08/23/17 04:39 APTT 28 SECONDS (21-34) 08/23/17 04:39 - Constitutional Appears: No Acute Distress - Head Exam Head Exam: ATRAUMATIC, NORMAL INSPECTION, NORMOCEPHALIC - Eye Exam Eye Exam: EOMI, Normal appearance, PERRL Pupil Exam: NORMAL ACCOMODATION, PERRL - Respiratory Exam Respiratory Exam: Decreased Breath Sounds - Cardiovascular Exam Cardiovascular Exam: REGULAR RHYTHM, +S1, +S2. absent: Murmur - GI/Abdominal Exam GI & Abdominal Exam: Soft, Normal Bowel Sounds. absent: Tenderness Assessment and Plan (1) Flu Status: Resolved (2) Acute exacerbation of chronic obstructive airways disease Status: Acute (3) COPD (chronic obstructive pulmonary disease) with emphysema Status: Acute (4) Acute and chronic respiratory failure ([id number]) Status: Acute (5) Allergic rhinitis Status: Chronic (6) PUNEET (generalized anxiety disorder) Status: Chronic (7) Steroid-induced diabetes Status: Chronic - Assessment and Plan (Free Text) Plan: transfer to [facility] at [facility]
[2017-08-28] MEDS: Azithromycin 500 MG in Sodium Chloride 0.9% 250 ML IVPB SCH (09:18)
[2017-08-28] MEDS: Enoxaparin 40 mg Syringe SC SCH (09:18)
[2017-08-28] MEDS: Pantoprazole 40 mg EC Tab PO SCH (09:19)
[2017-08-28] MEDS: Ferric Sodium Gluconat Complex 125 MG in Sodium Chloride 0.9% 100 ML IVPB SCH (09:34)
[2017-08-28] MEDS: guaiFENesin 100 mg/5 ml Syrup UD PO PRN ×2 (09:35→22:35)
[2017-08-28] MEDS: Multivitamin With Minerals Tab PO SCH (10:00)
--- NOTE | 2017-08-28 15:27 | CP.PCM.PN ---
Subjective - Date & Time of Evaluation Date of Evaluation: 08/28/17 Time of Evaluation: 15:24 - Subjective Subjective: PT SEEN THIS MORNING WITH DR. REDDY DURING ROUNDS. STILL C/O FEELING SOB BUT MUCH IMPROVED. DISCUSSED WITH PT AND AT BEDSIDE PLAN FOR D/C TOMORROW. [place] [facility]. CM AND SW AWARE THAT PT NEEDS BIPAP TO BE AT THE BEDSIDE [place] [facility] [place]. ALL OTHER MEDS WILL CONTINUE THE SAME AT [facility] [place]. WILL CONTINUE TO [place] ON TELE FOR ONE MORE NIGHT THEN D/C PT [place] [facility] TOM[place] IF REMAINS STABLE. DR. ZHANG AWARE OF PLAN. DR. REDDY IN AGREEMENT. DISCUSSED PLAN WITH PRIMARY RN BRETT. PT AND ARE IN AGREEMENT AND VERBALIZE UNDERSTANDING OF THE DISPO PLAN FOR TOMORROW. [facility] WILL F/U IN THE MORNING AFTER ROUNDS AND D/C PT THEN. NO FURTHER ORDERS. Objective - Vital Signs/Intake and Output Vital Signs (last 24 hours): Temp Pulse Resp BP Pulse Ox 97.9 F 104 H 15 124/70 97 08/28/17 12:00 08/28/17 12:00 08/28/17 12:00 08/28/17 12:00 08/28/17 12:00 Intake and Output: 08/28/17 08/28/17 06:59 18:59 Intake Total 500 1000 Output Total 1800 500 Balance -1300 500 - Medications Medications: Current Medications Al Hydrox/Mg Hydrox/Simethicone (Maalox 30 Ml) 30 ml PO Q6H PRN PRN Reason: Indigestion / Heartburn Albuterol/Ipratropium (Duoneb 3 Mg/0.5 Mg (3 Ml) Ud) 3 ml INH RQ6 [facility] Last Admin: 08/28/17 07:34 Dose: 3 ml Alprazolam (Xanax) 0.25 mg PO HS [facility] Last Admin: 08/27/17 22:26 Dose: 0.25 mg Alprazolam (Xanax) 0.5 mg PO BID PRN PRN Reason: Anxiety Last Admin: 08/27/17 12:09 Dose: 0.5 mg Budesonide (Pulmicort Respules) 1 mg IH RQ12 [facility] Last Admin: 08/28/17 07:34 Dose: 0.5 mg Enoxaparin Sodium (Lovenox) 40 mg SC DAILY [facility] Last Admin: 08/28/17 09:18 Dose: 40 mg Guaifenesin (Robitussin) 300 mg PO Q4H PRN PRN Reason: Cough Last Admin: 08/28/17 09:35 Dose: 300 mg Azithromycin 500 mg/ Sodium (Chloride) 250 mls @ 250 mls/hr IVPB DAILY [facility] Last Admin: 08/28/17 09:18 Dose: 250 mls/hr Piperacillin Sod/Tazobactam Sod (Zosyn 3.375 Gm Iv Premix) 3.375 gm in 50 mls @ 100 mls/hr IVPB Q6H [facility] Last Admin: 08/28/17 12:44 Dose: 100 mls/hr Ferric Sodium Gluconate Complex 125 mg/ Sodium Chloride 110 mls @ 220 mls/hr IVPB DAILY [facility] Stop: 09/02/17 10:01 Last Admin: 08/28/17 09:34 Dose: 220 mls/hr Insulin Aspart (Novolog) 0 unit SC ACHS [facility] PRN Reason: Protocol Last Admin: 08/28/17 11:41 Dose: 2 unit Magnesium Hydroxide (Milk Of Magnesia) 30 ml PO DAILY PRN PRN Reason: Constipation Last Admin: 08/23/17 09:10 Dose: 30 ml Metformin HCl (Glucophage) 1,000 mg PO BID [facility] Last Admin: 08/28/17 09:19 Dose: 1,000 mg Methylprednisolone (Solu-Medrol) 40 mg IV Q8H [facility] Last Admin: 08/28/17 10:48 Dose: 40 mg Montelukast Sodium (Singulair) 10 mg PO HS [facility] Last Admin: 08/27/17 22:26 Dose: 10 mg Multivitamins/Minerals (Therapeutic-M Tab) 1 tab PO DAILY [facility] Last Admin: 08/27/17 09:12 Dose: 1 tab Pantoprazole Sodium (Protonix Ec Tab) 40 mg PO DAILY [facility] Last Admin: 08/28/17 09:19 Dose: 40 mg Pregabalin (Lyrica) 50 mg PO BID [facility] Last Admin: 08/28/17 09:19 Dose: 50 mg Roflumilast (Daliresp) 500 mcg PO DAILY [facility] Last Admin: 08/28/17 09:19 Dose: 500 mcg Fluticasone/Salmeterol (Advair Diskus 250/50) 1 puff INH RBID [facility] Last Admin: 08/28/17 07:34 Dose: 1 puff - Labs Labs: 08/28/17 06:48 08/28/17 06:49 PT 12.6 SECONDS (9.7-12.2) H 08/23/17 04:39 INR 1.1 08/23/17 04:39 APTT 28 SECONDS (21-34) 08/23/17 04:39
--- NOTE | 2017-08-28 15:54 | PN ---
DATE: FOLLOWUP SUBJECTIVE: The patient is oxygenating 100% on BiPAP. He denies any chest pain. PHYSICAL EXAMINATION: VITAL SIGNS: Blood pressure 124/70, heart rate 104, temperature 97.9, respirations 15. HEENT: Pale conjunctivae. CHEST: Bilateral expiratory wheezing. HEART: S1 and S2 regular. EXTREMITIES: No edema. LABORATORY DATA: Today's hemoglobin and hematocrit 9.7 and 31.6, white count 15.9, platelet count 309,000. SMA-7: Sodium 130, potassium 4.2, chloride 95, CO2 of 27, glucose 163, BUN 12, creatinine 0.6. ASSESSMENT: 1. Questionable paroxysmal atrial fibrillation. 2. Physiologic sinus tachycardia secondary to exacerbation of chronic obstructive lung disease. 3. Uncontrolled diabetes mellitus. 4. History of colon resection and ileostomy for colonic cancer. 5. Hyponatremia. RECOMMENATIONS: Continue current IV Zosyn and IV Zithromax. Continue current bronchodilators. Continue subcutaneous Lovenox at 40 mg once a day, magnesium oxide, NovoLog insulin and Solu-Medrol 40 mg intravenously q. 8 hours. No further cardiac workup is indicated at this time. Mukesh Correia MD
--- NOTE | 2017-08-28 17:53 | CP.PCM.PN ---
Subjective - Date & Time of Evaluation Date of Evaluation: 08/28/17 Time of Evaluation: 10:00 - Subjective Subjective: patient seen and examined. Still complaining of shortness of breath and wheezing Afebrile On BiPAP at night Objective - Vital Signs/Intake and Output Vital Signs (last 24 hours): Temp Pulse Resp BP Pulse Ox 98.1 F 109 H 16 103/67 99 08/28/17 16:00 08/28/17 16:00 08/28/17 16:00 08/28/17 16:00 08/28/17 16:00 Intake and Output: 08/28/17 08/28/17 06:59 18:59 Intake Total 500 1000 Output Total 1800 500 Balance -1300 500 - Medications Medications: Current Medications Al Hydrox/Mg Hydrox/Simethicone (Maalox 30 Ml) 30 ml PO Q6H PRN PRN Reason: Indigestion / Heartburn Albuterol/Ipratropium (Duoneb 3 Mg/0.5 Mg (3 Ml) Ud) 3 ml INH RQ6 [facility] Last Admin: 08/28/17 07:34 Dose: 3 ml Alprazolam (Xanax) 0.25 mg PO HS [facility] Last Admin: 08/27/17 22:26 Dose: 0.25 mg Alprazolam (Xanax) 0.5 mg PO BID PRN PRN Reason: Anxiety Last Admin: 08/27/17 12:09 Dose: 0.5 mg Azithromycin (Zithromax) 500 mg PO DAILY [facility] Budesonide (Pulmicort Respules) 1 mg IH RQ12 [facility] Last Admin: 08/28/17 07:34 Dose: 0.5 mg Enoxaparin Sodium (Lovenox) 40 mg SC DAILY [facility] Last Admin: 08/28/17 09:18 Dose: 40 mg Guaifenesin (Robitussin) 300 mg PO Q4H PRN PRN Reason: Cough Last Admin: 08/28/17 09:35 Dose: 300 mg Piperacillin Sod/Tazobactam Sod (Zosyn 3.375 Gm Iv Premix) 3.375 gm in 50 mls @ 100 mls/hr IVPB Q6H [facility] Last Admin: 08/28/17 12:44 Dose: 100 mls/hr Ferric Sodium Gluconate Complex 125 mg/ Sodium Chloride 110 mls @ 220 mls/hr IVPB DAILY [facility] Stop: 09/02/17 10:01 Last Admin: 08/28/17 09:34 Dose: 220 mls/hr Insulin Aspart (Novolog) 0 unit SC ACHS [facility] PRN Reason: Protocol Last Admin: 08/28/17 11:41 Dose: 2 unit Magnesium Hydroxide (Milk Of Magnesia) 30 ml PO DAILY PRN PRN Reason: Constipation Last Admin: 08/23/17 09:10 Dose: 30 ml Metformin HCl (Glucophage) 1,000 mg PO BID [facility] Last Admin: 08/28/17 09:19 Dose: 1,000 mg Methylprednisolone (Solu-Medrol) 40 mg IV Q8H [facility] Last Admin: 08/28/17 10:48 Dose: 40 mg Montelukast Sodium (Singulair) 10 mg PO HS [facility] Last Admin: 08/27/17 22:26 Dose: 10 mg Multivitamins/Minerals (Therapeutic-M Tab) 1 tab PO DAILY [facility] Last Admin: 08/27/17 09:12 Dose: 1 tab Pantoprazole Sodium (Protonix Ec Tab) 40 mg PO DAILY [facility] Last Admin: 08/28/17 09:19 Dose: 40 mg Pregabalin (Lyrica) 50 mg PO BID [facility] Last Admin: 08/28/17 09:19 Dose: 50 mg Roflumilast (Daliresp) 500 mcg PO DAILY [facility] Last Admin: 08/28/17 09:19 Dose: 500 mcg Fluticasone/Salmeterol (Advair Diskus 250/50) 1 puff INH RBID [facility] Last Admin: 08/28/17 07:34 Dose: 1 puff - Labs Labs: 08/28/17 06:48 08/28/17 06:49 PT 12.6 SECONDS (9.7-12.2) H 08/23/17 04:39 INR 1.1 08/23/17 04:39 APTT 28 SECONDS (21-34) 08/23/17 04:39 - Head Exam Head Exam: ATRAUMATIC, NORMOCEPHALIC - ENT Exam ENT Exam: Mucous Membranes Moist - Neck Exam Neck Exam: Normal Inspection - Respiratory Exam Respiratory Exam: Rhonchi - Cardiovascular Exam Cardiovascular Exam: REGULAR RHYTHM Assessment and Plan (1) Acute exacerbation of chronic obstructive airways disease Assessment & Plan: Continue IV steroids Continue nebulizer treatment Awaiting for transfer to [facility] at night on as needed Status: Acute
[2017-08-29] MEDS: Piperacill/Tazo 3.375gm in Dex 3.375 GM/50 ML BAG IVPB SCH ×3 (00:20→12:22)
[2017-08-29 00:55] VITALS: O2SAT 100
[2017-08-29] MEDS: Albuterol-Ipratrop 3 mg / 0.5 (3 ml) UD INH SCH ×3 (02:25→13:00)
[2017-08-29] MEDS: MethylPREDNISolone 40 mg Vial IV SCH ×2 (02:42→12:11)
[2017-08-29 04:34] VITALS: BP 114/62; RESP 20
[2017-08-29] MEDS: Budesonide 0.5 mg/2 ml Inhal Susp UD IH SCH (07:29)
[2017-08-29] MEDS: Fluticasone-Salmeterol 250-50mcg Diskus INH SCH (07:29)
[2017-08-29] MEDS: (Novolog) Insulin Aspart, Recombinant 100 u/ml 10 ml vial SC SCH ×2 (07:58→12:11)
--- NOTE | 2017-08-29 08:24 | CP.PCM.PN ---
Subjective - Date & Time of Evaluation Date of Evaluation: 08/29/17 Time of Evaluation: 08:24 - Subjective Subjective: PT CLEARED FOR DC TODAY. CONFIRMED W SW AND CM THAT [facility] HAS BIPAP FOR PT W SETTINGS THAT HE IS ON. ALL OTHER MEDICATIONS TO BE CONTINUED PER MED REC. PT TO F/U WITH DR. BRANDT WHILE HE IS AT [facility]. ALL D/C AND F/U INFORMATION DISCUSSED W PT. PT STATES HE FEELS BETTER TODAY. STATES MOST OF HIS ANXIETY, HTN AND SOB HAPPENS WHEN HIS IS PRESENT, SHE CAN GET "EXCITED." SW TO ARRANGE TRANSPORT. NO FURTHER ORDERS. -PLACE UNDER THE SERVICE OF DR. ZHANG WHILE AT [facility]---CALL UPON ARRIVAL TO FACILITY WITH BED ASSIGNMENT AND FOR ADMITTING ORDERS. -CONTINUE BIPAP AND OXYGEN AT 2-3 LPM VIA NASAL CANNULA NEEDED. PLEASE KEEP BIPAP AT BEDSIDE AT ALL TIMES. -CONTINUE MEDICATIONS PER THE MED REC. CHANGES CAN BE MADE BY ATTENDING. -CONTINUE PREDNISONE TAPER PER THE MED REC; CONTINUE ZITHROMAX PO FOR 5 DAYS PER THE MED REC. -PHYSICAL THERAPY TOLERATED. -PLEASE ARRANGE FOR MR. CHRISTOPHER TO FOLLOW UP WITH DR. BRANDT (GI) IN THE OFFICE BETWEEN 5-7 DAYS---ARRANGE FOR TRANSPORTATION TO AND FROM THE OFFICE. -FOR FURTHER ORDERS, CONTACT DR. ZHANG'S OFFICE. Objective - Vital Signs/Intake and Output Vital Signs (last 24 hours): Temp Pulse Resp BP Pulse Ox 97.6 F 92 H 20 114/62 100 08/29/17 08:00 08/29/17 08:06 08/29/17 04:00 08/29/17 04:00 08/29/17 04:00 Intake and Output: 08/29/17 08/29/17 06:59 18:59 Intake Total 350 Output Total 1800 Balance -1450 - Medications Medications: Current Medications Al Hydrox/Mg Hydrox/Simethicone (Maalox 30 Ml) 30 ml PO Q6H PRN PRN Reason: Indigestion / Heartburn Albuterol/Ipratropium (Duoneb 3 Mg/0.5 Mg (3 Ml) Ud) 3 ml INH RQ6 [facility] Last Admin: 08/29/17 07:28 Dose: 3 ml Alprazolam (Xanax) 0.25 mg PO HS [facility] Last Admin: 08/28/17 22:35 Dose: 0.25 mg Alprazolam (Xanax) 0.5 mg PO BID PRN PRN Reason: Anxiety Last Admin: 08/27/17 12:09 Dose: 0.5 mg Azithromycin (Zithromax) 500 mg PO DAILY [facility] Budesonide (Pulmicort Respules) 1 mg IH RQ12 [facility] Last Admin: 08/29/17 07:29 Dose: 0.5 mg Enoxaparin Sodium (Lovenox) 40 mg SC DAILY [facility] Last Admin: 08/28/17 09:18 Dose: 40 mg Guaifenesin (Robitussin) 300 mg PO Q4H PRN PRN Reason: Cough Last Admin: 08/28/17 22:35 Dose: 300 mg Piperacillin Sod/Tazobactam Sod (Zosyn 3.375 Gm Iv Premix) 3.375 gm in 50 mls @ 100 mls/hr IVPB Q6H [facility] Last Admin: 08/29/17 06:20 Dose: 100 mls/hr Ferric Sodium Gluconate Complex 125 mg/ Sodium Chloride 110 mls @ 220 mls/hr IVPB DAILY [facility] Stop: 09/02/17 10:01 Last Admin: 08/28/17 09:34 Dose: 220 mls/hr Insulin Aspart (Novolog) 0 unit SC ACHS [facility] PRN Reason: Protocol Last Admin: 08/29/17 07:58 Dose: 3 unit Magnesium Hydroxide (Milk Of Magnesia) 30 ml PO DAILY PRN PRN Reason: Constipation Last Admin: 08/23/17 09:10 Dose: 30 ml Metformin HCl (Glucophage) 1,000 mg PO BID [facility] Last Admin: 08/28/17 18:13 Dose: 1,000 mg Methylprednisolone (Solu-Medrol) 40 mg IV Q8H [facility] Last Admin: 08/29/17 02:42 Dose: 40 mg Montelukast Sodium (Singulair) 10 mg PO HS [facility] Last Admin: 08/28/17 22:35 Dose: 10 mg Multivitamins/Minerals (Therapeutic-M Tab) 1 tab PO DAILY [facility] Last Admin: 08/28/17 10:00 Dose: 1 tab Pantoprazole Sodium (Protonix Ec Tab) 40 mg PO DAILY [facility] Last Admin: 08/28/17 09:19 Dose: 40 mg Pregabalin (Lyrica) 50 mg PO BID [facility] Last Admin: 08/28/17 18:12 Dose: 50 mg Roflumilast (Daliresp) 500 mcg PO DAILY [facility] Last Admin: 08/28/17 09:19 Dose: 500 mcg Fluticasone/Salmeterol (Advair Diskus 250/50) 1 puff INH RBID [facility] Last Admin: 08/29/17 07:29 Dose: 1 puff - Labs Labs: 08/28/17 06:48 08/28/17 06:49 PT 12.6 SECONDS (9.7-12.2) H 08/23/17 04:39 INR 1.1 08/23/17 04:39 APTT 28 SECONDS (21-34) 08/23/17 04:39
[2017-08-29] MEDS: Pantoprazole 40 mg EC Tab PO SCH (09:32)
[2017-08-29] MEDS: Enoxaparin 40 mg Syringe SC SCH (09:33)
[2017-08-29] MEDS: Ferric Sodium Gluconat Complex 125 MG in Sodium Chloride 0.9% 100 ML IVPB SCH (10:08)
[2017-08-29] MEDS: Multivitamin With Minerals Tab PO SCH (12:21)
[2017-08-29 13:03] VITALS: PULSE 116
[2017-08-29 15:19] VITALS: TEMP 97.7
--- NOTE | 2017-08-29 16:12 | CP.PCM.PN ---
Subjective - Date & Time of Evaluation Date of Evaluation: 08/29/17 Time of Evaluation: 14:00 - Subjective Subjective: patient seen and examined Breathing and cough much improved Afebrile awaiting transferred to subacute Taper steroids Continue bronchodilators BiPAP Objective - Vital Signs/Intake and Output Vital Signs (last 24 hours): Temp Pulse Resp BP Pulse Ox 97.7 F 116 H 20 114/62 100 08/29/17 12:00 08/29/17 13:01 08/29/17 04:00 08/29/17 04:00 08/29/17 04:00 Intake and Output: 08/29/17 08/29/17 06:59 18:59 Intake Total 350 550 Output Total 1800 400 Balance -1450 150 - Medications Medications: Current Medications Al Hydrox/Mg Hydrox/Simethicone (Maalox 30 Ml) 30 ml PO Q6H PRN PRN Reason: Indigestion / Heartburn Albuterol/Ipratropium (Duoneb 3 Mg/0.5 Mg (3 Ml) Ud) 3 ml INH RQ6 [facility] Last Admin: 08/29/17 13:00 Dose: 3 ml Alprazolam (Xanax) 0.25 mg PO HS [facility] Last Admin: 08/28/17 22:35 Dose: 0.25 mg Alprazolam (Xanax) 0.5 mg PO BID PRN PRN Reason: Anxiety Last Admin: 08/29/17 09:32 Dose: 0.5 mg Azithromycin (Zithromax) 500 mg PO DAILY [facility] Last Admin: 08/29/17 10:00 Dose: 500 mg Budesonide (Pulmicort Respules) 1 mg IH RQ12 [facility] Last Admin: 08/29/17 07:29 Dose: 0.5 mg Enoxaparin Sodium (Lovenox) 40 mg SC DAILY [facility] Last Admin: 08/29/17 09:33 Dose: 40 mg Guaifenesin (Robitussin) 300 mg PO Q4H PRN PRN Reason: Cough Last Admin: 08/28/17 22:35 Dose: 300 mg Piperacillin Sod/Tazobactam Sod (Zosyn 3.375 Gm Iv Premix) 3.375 gm in 50 mls @ 100 mls/hr IVPB Q6H [facility] Last Admin: 08/29/17 12:22 Dose: 100 mls/hr Ferric Sodium Gluconate Complex 125 mg/ Sodium Chloride 110 mls @ 220 mls/hr IVPB DAILY [facility] Stop: 09/02/17 10:01 Last Admin: 08/29/17 10:08 Dose: 220 mls/hr Insulin Aspart (Novolog) 0 unit SC ACHS [facility] PRN Reason: Protocol Last Admin: 08/29/17 12:11 Dose: 3 unit Magnesium Hydroxide (Milk Of Magnesia) 30 ml PO DAILY PRN PRN Reason: Constipation Last Admin: 08/23/17 09:10 Dose: 30 ml Metformin HCl (Glucophage) 1,000 mg PO BID [facility] Last Admin: 08/29/17 09:33 Dose: 1,000 mg Methylprednisolone (Solu-Medrol) 40 mg IV Q8H [facility] Last Admin: 08/29/17 12:11 Dose: 40 mg Montelukast Sodium (Singulair) 10 mg PO HS [facility] Last Admin: 08/28/17 22:35 Dose: 10 mg Multivitamins/Minerals (Therapeutic-M Tab) 1 tab PO DAILY [facility] Last Admin: 08/29/17 12:21 Dose: 1 tab Pantoprazole Sodium (Protonix Ec Tab) 40 mg PO DAILY [facility] Last Admin: 08/29/17 09:32 Dose: 40 mg Pregabalin (Lyrica) 50 mg PO BID [facility] Last Admin: 08/29/17 09:29 Dose: 50 mg Roflumilast (Daliresp) 500 mcg PO DAILY [facility] Last Admin: 08/29/17 09:33 Dose: 500 mcg Fluticasone/Salmeterol (Advair Diskus 250/50) 1 puff INH RBID [facility] Last Admin: 08/29/17 07:29 Dose: 1 puff - Labs Labs: 08/28/17 06:48 08/28/17 06:49 PT 12.6 SECONDS (9.7-12.2) H 08/23/17 04:39 INR 1.1 08/23/17 04:39 APTT 28 SECONDS (21-34) 08/23/17 04:39 Assessment and Plan (1) Acute exacerbation of chronic obstructive airways disease Status: Acute
--- NOTE | 2017-08-29 22:47 | CP.PCM.PN ---
Subjective - Date & Time of Evaluation Date of Evaluation: 08/29/17 Time of Evaluation: 17:40 - Subjective Subjective: Pt is for discharge today to [facility], off tamiflu, feeling better Objective - Vital Signs/Intake and Output Vital Signs (last 24 hours): Temp Pulse Resp BP Pulse Ox 97.7 F 116 H 20 114/62 100 08/29/17 12:00 08/29/17 13:01 08/29/17 04:00 08/29/17 04:00 08/29/17 04:00 Intake and Output: 08/29/17 08/30/17 18:59 06:59 Intake Total 550 Output Total 400 Balance 150 - Medications Medications: Current Medications Al Hydrox/Mg Hydrox/Simethicone (Maalox 30 Ml) 30 ml PO Q6H PRN PRN Reason: Indigestion / Heartburn Albuterol/Ipratropium (Duoneb 3 Mg/0.5 Mg (3 Ml) Ud) 3 ml INH RQ6 [facility] Last Admin: 08/29/17 13:00 Dose: 3 ml Alprazolam (Xanax) 0.25 mg PO HS [facility] Last Admin: 08/28/17 22:35 Dose: 0.25 mg Alprazolam (Xanax) 0.5 mg PO BID PRN PRN Reason: Anxiety Last Admin: 08/29/17 09:32 Dose: 0.5 mg Azithromycin (Zithromax) 500 mg PO DAILY [facility] Last Admin: 08/29/17 10:00 Dose: 500 mg Budesonide (Pulmicort Respules) 1 mg IH RQ12 [facility] Last Admin: 08/29/17 07:29 Dose: 0.5 mg Enoxaparin Sodium (Lovenox) 40 mg SC DAILY [facility] Last Admin: 08/29/17 09:33 Dose: 40 mg Guaifenesin (Robitussin) 300 mg PO Q4H PRN PRN Reason: Cough Last Admin: 08/28/17 22:35 Dose: 300 mg Piperacillin Sod/Tazobactam Sod (Zosyn 3.375 Gm Iv Premix) 3.375 gm in 50 mls @ 100 mls/hr IVPB Q6H [facility] Last Admin: 08/29/17 12:22 Dose: 100 mls/hr Ferric Sodium Gluconate Complex 125 mg/ Sodium Chloride 110 mls @ 220 mls/hr IVPB DAILY [facility] Stop: 09/02/17 10:01 Last Admin: 08/29/17 10:08 Dose: 220 mls/hr Insulin Aspart (Novolog) 0 unit SC ACHS [facility] PRN Reason: Protocol Last Admin: 08/29/17 12:11 Dose: 3 unit Magnesium Hydroxide (Milk Of Magnesia) 30 ml PO DAILY [facility] PRN Reason: Constipation Last Admin: 08/23/17 09:10 Dose: 30 ml Metformin HCl (Glucophage) 1,000 mg PO BID [facility] Last Admin: 08/29/17 09:33 Dose: 1,000 mg Methylprednisolone (Solu-Medrol) 40 mg IV Q8H [facility] Last Admin: 08/29/17 12:11 Dose: 40 mg Montelukast Sodium (Singulair) 10 mg PO HS [facility] Last Admin: 08/28/17 22:35 Dose: 10 mg Multivitamins/Minerals (Therapeutic-M Tab) 1 tab PO DAILY [facility] Last Admin: 08/29/17 12:21 Dose: 1 tab Pantoprazole Sodium (Protonix Ec Tab) 40 mg PO DAILY [facility] Last Admin: 08/29/17 09:32 Dose: 40 mg Pregabalin (Lyrica) 50 mg PO BID [facility] Last Admin: 08/29/17 09:29 Dose: 50 mg Roflumilast (Daliresp) 500 mcg PO DAILY [facility] Last Admin: 08/29/17 09:33 Dose: 500 mcg Fluticasone/Salmeterol (Advair Diskus 250/50) 1 puff INH RBID [facility] Last Admin: 08/29/17 07:29 Dose: 1 puff - Labs Labs: 08/28/17 06:48 08/28/17 06:49 PT 12.6 SECONDS (9.7-12.2) H 08/23/17 04:39 INR 1.1 08/23/17 04:39 APTT 28 SECONDS (21-34) 08/23/17 04:39 - Constitutional Appears: No Acute Distress - Head Exam Head Exam: ATRAUMATIC, NORMAL INSPECTION, NORMOCEPHALIC - Eye Exam Eye Exam: EOMI, Normal appearance, PERRL Pupil Exam: NORMAL ACCOMODATION, PERRL - Respiratory Exam Respiratory Exam: Clear to Ausculation Bilateral, NORMAL BREATHING PATTERN - Cardiovascular Exam Cardiovascular Exam: REGULAR RHYTHM, +S1, +S2. absent: Murmur - GI/Abdominal Exam GI & Abdominal Exam: Soft, Normal Bowel Sounds. absent: Tenderness Assessment and Plan (1) Flu Status: Resolved (2) Acute exacerbation of chronic obstructive airways disease Status: Acute (3) COPD (chronic obstructive pulmonary disease) with emphysema Status: Acute (4) Acute and chronic respiratory failure ([id number]) Status: Acute (5) Allergic rhinitis Status: Chronic (6) PUNEET (generalized anxiety disorder) Status: Chronic (7) Steroid-induced diabetes Status: Chronic
== END 2017-08-29 14:30 | DRG 190 ==
LOC: C.ER 04:18 → C.9I 06:15
PROVIDERS: ADMIT Internal Medicine; ATTEND Internal Medicine
PROC: 5A09457 Assistance with Respiratory Ventilation, 24-96 Consecutive Hours, Continuous Positive Airway Pressure (ICD-10-PCS; principal; 2017-08-23)
DX: J44.1 Chronic obstructive pulmonary disease with (acute) exacerbation (principal); J96.20 Acute and chronic respiratory failure, unspecified whether with hypoxia or hypercapnia; I13.0 Hypertensive heart and chronic kidney disease with heart failure and stage 1 through stage 4 chronic kidney disease, or unspecified chronic kidney disease; E11.22 Type 2 diabetes mellitus with diabetic chronic kidney disease; I95.9 Hypotension, unspecified; I27.29 Other secondary pulmonary hypertension; I47.1 Supraventricular tachycardia; I50.9 Heart failure, unspecified; E87.1 Hypo-osmolality and hyponatremia; Z99.81 Dependence on supplemental oxygen; J11.1 Influenza due to unidentified influenza virus with other respiratory manifestations; N18.9 Chronic kidney disease, unspecified; T38.0X5A Adverse effect of glucocorticoids and synthetic analogues, initial encounter; Z85.048 Personal history of other malignant neoplasm of rectum, rectosigmoid junction, and anus; Z87.01 Personal history of pneumonia (recurrent); Z87.442 Personal history of urinary calculi; Z87.891 Personal history of nicotine dependence; Z93.2 Ileostomy status; H26.9 Unspecified cataract; E86.0 Dehydration; D63.8 Anemia in other chronic diseases classified elsewhere; E78.00 Pure hypercholesterolemia, unspecified; F41.1 Generalized anxiety disorder; G47.30 Sleep apnea, unspecified; J30.9 Allergic rhinitis, unspecified

== ENCOUNTER 2017-09-19 11:57 | Inpatient (IN) | payer MEDICARE, BC ==
[2017-09-19 11:58] VITALS: BMI 23.1
[2017-09-19 13:45] LABS: BASO # 0.1 K/uL (0.0-0.2); BASO % 1.1 % (0.0-2.0); EOS # 0.4 K/uL (0.0-0.7); EOS % 4.1 % (0.0-4.0); HEMOGLOBIN 10.3 g/dL (12.0-18.0); LYMPH % 28.6 % (20.0-40.0); MEAN CORPUSCULAR HEMOGLOBIN 22.4 pg (27.0-31.0); MEAN CORPUSCULAR HGB CONC 31.9 g/dL (33.0-37.0); MEAN PLATELET VOLUME 7.9 fL (7.2-11.7); MONO # 0.6 K/uL (0.0-0.8); MONO % 6.1 % (0.0-10.0); NEUT # 6.3 K/uL (1.8-7.0); NEUT % 60.1 % (50.0-75.0); RBC 4.58 Mil/uL (4.40-5.90); WHITE BLOOD COUNT 10.5 K/uL (4.8-10.8)
[2017-09-19 13:46] LABS: MEAN CELL VOLUME 70.3 fL (80.0-94.0)
--- NOTE | 2017-09-19 13:54 | C.PDOC ---
History Of Present Illness 67 y/o male with PMHx of COPD brought to ED by EMS with complaints of worsening chronic sob for 2 weeks. Patient was recently in rehab and discharged as per with no improvement. reports cough is constant and he is sob on exertion, unable to walk secondary to sob. Patient was given Duo neb, albuterol and Solumedrol enroute. Patient reports he has ileostomy for colon cancer and has scheduled Colonoscopy 09/26/17 but is unable to do any prep secondary to sob. Patient denies leg swelling, sputum, fever or any other complaints at this time. Time Seen by Provider: 09/19/17 13:19 Chief Complaint (Nursing): Shortness Of Breath History Per: Patient History/Exam Limitations: no limitations Onset/Duration Of Symptoms: Days Current Symptoms Are (Timing): Still Present Initiating Event: Upper Respiratory Illness Past Medical History Reviewed: Historical Data, Nursing Documentation, Vital Signs Vital Signs: Last Vital Signs Temp 99 F 09/19/17 12:18 Pulse 120 H 09/19/17 14:45 Resp 19 09/19/17 14:45 BP 124/73 09/19/17 14:45 Pulse Ox 100 09/19/17 14:45 - Medical History PMH: Anemia, Anxiety, Arthritis, Asthma, Bronchitis, Cardia Arrhythmia (SVT), CHF, COPD (Emphysema), Diabetes, Emphysema, HTN, Hypercholesterolemia, Kidney Stones, Pneumonia, Chronic Kidney Disease, Sleep Apnea Surgical History: No Surg Hx - [facility] Procedures ASSISTANCE WITH RESPIRATORY VENTILATION, 24-96 HRS, CPAP (08/23/17) ASSISTANCE WITH RESPIRATORY VENTILATION, <24 HRS, CPAP (07/08/16) ASSISTANCE WITH RESPIRATORY VENTILATION, >96 HRS, CPAP (05/08/17) CONTINUOUS INVASIVE MECHANICAL VENTILATION <96 CONSEC HRS (11/29/14) DILATION OF RIGHT URETER WITH INTRALUMINAL DEVICE, ENDO (03/20/17) EXCISION OF SIGMOID COLON, ENDO, DIAGN (03/20/17) EXCISION OF STOMACH, ENDO, DIAGN (03/20/17) EXCISION OF TRANSVERSE COLON, ENDO, DIAGN (03/20/17) INFLUENZA VACCINATION (06/02/14) INSERT ENDOTRACHEAL TUBE (11/29/14) LARYGNOSCOPY AND OTH TRACHEOSCOPY (04/18/15) MEASURE OF CARDIAC SAMPL & PRESSURE, L HEART, PERC APPROACH (12/01/15) NON-INVASIVE MECHANICAL VENTILATION (04/18/15) RESECTION OF SIGMOID COLON, OPEN APPROACH (03/20/17) RESPIRATORY VENTILATION, GREATER THAN 96 CONSECUTIVE HOURS (03/20/17) Family History: States: No Known Family Hx - Social History Hx Tobacco Use: Yes (8 years ppd smoker. quit 1.5 years ago) Hx Alcohol Use: No Hx Substance Use: No - Immunization History Hx Tetanus Toxoid Vaccination: Yes Hx Influenza Vaccination: Yes Hx Pneumococcal Vaccination: Yes (12/01/2014) Review Of Systems Constitutional: Negative for: Fever, Chills Cardiovascular: Negative for: Chest Pain Respiratory: Positive for: Cough, SOB with Excertion Gastrointestinal: Negative for: Nausea, Vomiting Skin: Negative for: Rash Physical Exam - Physical Exam Appears: Non-toxic, No Acute Distress Skin: Warm, Dry, No Rash Head: Atraumatic, Normacephalic Eye(s): bilateral: Normal Inspection Oral Mucosa: Moist Neck: Supple Cardiovascular: Rhythm Regular, Other (Tachycardic) Respiratory: Decreased Breath Sounds (bilaterally), No Rales, No Rhonchi, No Wheezing Gastrointestinal/Abdominal: Soft, No Tenderness, No Guarding, No Rebound Extremity: Normal ROM, No Pedal Edema Neurological/Psych: Oriented x3 ED Course And Treatment - Laboratory Results Result Diagrams: 09/19/17 13:38 09/19/17 13:38 Lab Interpretation: No Acute Changes O2 Sat by Pulse Oximetry: 100 (RA) Pulse Ox Interpretation: Normal - Radiology CXR: Viewed By Me, Read By Radiologist CXR Interpretation: Yes: COPD Reevaluation Time: 14:30 Reassessment Condition: Unchanged - Physician Consult Information Time Consulting Physician Contacted: 14:30 Physician Contacted: Hal Garcia Outcome Of Conversation: Patient is well known to him. Patient will remain on observation for exacerbation of COPD. Disposition Counseled Patient/Family Regarding: Studies Performed, Diagnosis - Disposition Disposition: HOSPITALIZED Disposition Time: 14:34 Condition: STABLE - POA Present On Arrival: None - Clinical Impression Clinical Impression: COPD exacerbation - Scribe Statement The provider has reviewed the documentation as recorded by the Scribe Clement Dorman All medical record entries made by the Scribe were at my direction and personally dictated by me. I have reviewed the chart and agree that the record accurately reflects my personal performance of the history, physical exam, medical decision making, and the department course for this patient. I have also personally directed, reviewed, and agree with the discharge instructions and disposition.
[2017-09-19 13:58] LABS: ALB/GLOB RATIO 1.1 (1.0-2.1); ALBUMIN 3.8 g/dL (3.5-5.0); ALT/SGPT 38 U/L (21-72); AST/SGOT 22 U/L (17-59); BLOOD UREA NITROGEN 8 mg/dL (9-20); GFR AFRICAN-AMERICAN > 60; GFR NON-AFRICAN AMERICAN > 60; MAGNESIUM 1.6 mg/dL (1.6-2.3)
--- NOTE | 2017-09-19 14:22 | RAD ---
HISTORY: SOB COMPARISON: Chest x-ray performed 08/23/17 TECHNIQUE: Chest, one view. FINDINGS: LUNGS: Hyperinflation with flattening of the hemidiaphragm. No focal consolidation. Please note that chest x-ray has limited sensitivity for the detection of pulmonary masses. PLEURA: No significant pleural effusion identified. No definite pneumothorax . CARDIOVASCULAR: Heart size appears within normal limits. OSSEOUS STRUCTURES: Degenerative changes of the spine. VISUALIZED UPPER ABDOMEN: Unremarkable. OTHER FINDINGS: None. IMPRESSION: Hyperinflation may be seen in the setting of COPD.
[2017-09-19] MEDS ORDERED: Magnesium Hydroxide Susp 30 ml UD PO PRN (18:17)
[2017-09-19] MEDS ORDERED: Aluminum Hydroxide/Magnesium Hydroxide Susp (30 mL) PO PRN (18:17)
[2017-09-19] MEDS ORDERED: Albuterol-Ipratrop 3 mg / 0.5 (3 ml) UD ONE (18:26)
--- NOTE | 2017-09-19 18:39 | CP.PCM.CON ---
History of Present Illness - History of Present Illness History of Present Illness: Reason for consultation: shortness of breath 67-year-old male with end-stage COPD, chronic respiratory failure on home oxygen status post ileostomy presented to emergency roomcomplaining of shortness of breath. Patient was recently discharged home from rehabilitation. Patient also complaining of cough which is mostly dry. Patient is scheduled for colonoscopy next week Review of Systems - Review of Systems All systems: reviewed and no additional remarkable complaints except (shortness of breath and cough) Past Patient History - Infectious Disease Hx of Infectious Diseases: None - Past Medical History & Family History Past Medical History?: Yes - Past Social History Smoking Status: Former Smoker - CARDIAC Hx Cardia Arrhythmia: Yes (SVT) Hx Congestive Heart Failure: Yes Hx Hypercholesterolemia: Yes Hx Hypertension: Yes - PULMONARY Hx Asthma: Yes Hx Bronchitis: Yes Hx Chronic Obstructive Pulmonary Disease (COPD): Yes (Emphysema) Hx Emphysema: Yes Hx Pneumonia: Yes Hx Sleep Apnea: Yes - NEUROLOGICAL Hx Neurological Disorder: No - HEENT Hx HEENT Problems: Yes Hx Cataracts: Yes (left cataract removed, r cataract) Other/Comment: wears eyeglasses for distance - RENAL Hx Chronic Kidney Disease: Yes Hx Kidney Stones: Yes - ENDOCRINE/METABOLIC Hx Endocrine Disorders: Yes Hx Diabetes Mellitus Type 2: Yes - HEMATOLOGICAL/ONCOLOGICAL Hx Anemia: Yes - INTEGUMENTARY Hx Dermatological Problems: No - MUSCULOSKELETAL/RHEUMATOLOGICAL Hx Arthritis: Yes - GASTROINTESTINAL Hx Gastritis: No - PSYCHIATRIC Hx Anxiety: Yes Hx Substance Use: No - SURGICAL HISTORY Hx Surgeries: Yes Hx Cardiac Catheterization: Yes (11/2015) Other/Comment: colon resection with right ileostomy - ANESTHESIA Hx Anesthesia: Yes Hx Anesthesia Reactions: No Hx Malignant Hyperthermia: No Meds Allergies/Adverse Reactions: Allergies Allergy/AdvReac Type Severity Reaction Status Date / Time acetaminophen [From Tylenol] Allergy RASH Verified 09/19/17 12:19 FISH Allergy SWELLING Verified 09/19/17 12:19 shrimp Allergy SHORTNESS Verified 09/19/17 12:19 OF BREATH IV dye Allergy Severe ANAPHYLAXIS Uncoded 09/19/17 12:19 - Medications Medications: Current Medications Al Hydrox/Mg Hydrox/Simethicone (Maalox 30 Ml) 30 ml PO Q6H PRN PRN Reason: Indigestion / Heartburn Albuterol/Ipratropium (Duoneb 3 Mg/0.5 Mg (3 Ml) Ud) 3 ml INH RQ6 [facility] Alprazolam (Xanax) 0.5 mg PO Q12 [facility] Stop: 09/26/17 22:01 Budesonide (Pulmicort Respules) 1 mg IH RQ12 [facility] Enoxaparin Sodium (Lovenox) 40 mg SC DAILY [facility] Guaifenesin (Robitussin) 300 mg PO QID [facility] Insulin Aspart (Novolog) 0 unit SC ACHS [facility] PRN Reason: Protocol Magnesium Hydroxide (Milk Of Magnesia) 30 ml PO DAILY [facility]N PRN Reason: Constipation Metformin HCl (Glucophage) 1,000 mg PO BID [facility] Methylprednisolone (Solu-Medrol) 40 mg IVP Q8 [facility] Montelukast Sodium (Singulair) 10 mg PO HS [facility] Pregabalin (Lyrica) 50 mg PO BID [facility] Roflumilast (Daliresp) 500 mcg PO DAILY [facility] Fluticasone/Salmeterol (Advair Diskus 250/50) 1 puff INH RBID [facility] Physical Exam - Head Exam Head Exam: ATRAUMATIC, NORMOCEPHALIC - ENT Exam ENT Exam: Mucous Membranes Moist - Neck Exam Neck exam: Positive for: Normal Inspection - Respiratory Exam Respiratory Exam: Decreased Breath Sounds - Cardiovascular Exam Cardiovascular Exam: REGULAR RHYTHM - GI/Abdominal Exam GI & Abdominal Exam: Normal Bowel Sounds, Soft - Extremities Exam Extremities exam: Positive for: normal inspection - Neurological Exam Neurological exam: Alert, Oriented x3 Results - Vital Signs Recent Vital Signs: Last Vital Signs Temp 99 F 09/19/17 12:18 Pulse 105 H 09/19/17 17:19 Resp 20 09/19/17 17:19 BP 101/64 09/19/17 17:19 Pulse Ox 99 09/19/17 17:19 - Labs Result Diagrams: 09/19/17 13:38 09/19/17 13:38 Labs: Laboratory Results - last 24 hr 09/19/17 09/19/17 09/19/17 12:04 13:38 13:38 WBC 10.5 RBC 4.58 Hgb 10.3 L Hct 32.2 L MCV 70.3 L D MCH 22.4 L MCHC 31.9 L RDW 25.0 H Plt Count 411 H D MPV 7.9 Neut % (Auto) 60.1 Lymph % (Auto) 28.6 Roosevelt % (Auto) 6.1 Eos % (Auto) 4.1 H Baso % (Auto) 1.1 Neut # (Auto) 6.3 Lymph # (Auto) 3.0 Roosevelt # (Auto) 0.6 Eos # (Auto) 0.4 Baso # (Auto) 0.1 Sodium 141 Potassium 3.9 Chloride 96 L Carbon Dioxide 33 H Anion Gap 15 BUN 8 L Creatinine 0.5 L Est GFR ( Amer) > 60 Est GFR (Non-Af Amer) > 60 POC Glucose (mg/dL) 145 H Random Glucose 174 H Calcium 9.0 Magnesium 1.6 Total Bilirubin 0.3 AST 22 ALT 38 Alkaline Phosphatase 161 H D Total Protein 7.2 Albumin 3.8 Globulin 3.4 Albumin/Globulin Ratio 1.1 09/19/17 18:20 WBC RBC Hgb Hct MCV MCH MCHC RDW Plt Count MPV Neut % (Auto) Lymph % (Auto) Roosevelt % (Auto) Eos % (Auto) Baso % (Auto) Neut # (Auto) Lymph # (Auto) Roosevelt # (Auto) Eos # (Auto) Baso # (Auto) Sodium Potassium Chloride Carbon Dioxide Anion Gap BUN Creatinine Est GFR ( Amer) Est GFR (Non-Af Amer) POC Glucose (mg/dL) 298 H Random Glucose Calcium Magnesium Total Bilirubin AST ALT Alkaline Phosphatase Total Protein Albumin Globulin Albumin/Globulin Ratio Assessment & Plan (1) Acute exacerbation of chronic obstructive airways disease Status: Acute Comment: IV steroids. Nebulizer treatment. BiPAP as needed. spiriva and budesonide (2) Chronic respiratory failure Status: Acute
[2017-09-19] MEDS: Budesonide 0.5 mg/2 ml Inhal Susp UD IH SCH (19:57)
[2017-09-19] MEDS ORDERED: Budesonide 0.5 mg/2 ml Inhal Susp UD IH SCH (20:00)
[2017-09-19] MEDS ORDERED: Fluticasone-Salmeterol 250-50mcg Diskus INH SCH (20:00)
--- NOTE | 2017-09-19 20:17 | CP.PCM.CON ---
History of Present Illness - History of Present Illness History of Present Illness: Surgery- Dr. Nieto 67M with PMHx of COPD, anxiety, REYNA, NIDDM, presents to the ED for SOB and admitted for COPD exacerbation. Patient is schedeled to have a colonoscopy by Dr. Black next week. Patient had Sigmoid and rectosigmoid polyp for which he had low anterior resection w/ loop ileostomy on 03/27/17. 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 Patient states he is having good output from the ileostomy. Denies blood in stool. Denies: abd pain, fevers, chills, nausea, vomiting, diarrhea, changes in urinary or bowel habits. PMH: COPD, Anemia, Diabetes Mellitus, REYNA, anxiety PSH: LAR with loop ileostomy, Cataract surgery, cardiac catherization w/o stent placement ALL: tylenol, fish, shrip Social History: former smoker of 2ppd for 40 years quit 5yrs ago, last ETOH was > 14yrs ago, denies recreational drug use Review of Systems - Review of Systems All systems: reviewed and no additional remarkable complaints except - Constitutional Constitutional: As Per HPI Past Patient History - Infectious Disease Hx of Infectious Diseases: None - Past Medical History & Family History Past Medical History?: Yes - Past Social History Smoking Status: Former Smoker - CARDIAC Hx Cardia Arrhythmia: Yes (SVT) Hx Congestive Heart Failure: Yes Hx Hypercholesterolemia: Yes Hx Hypertension: Yes - PULMONARY Hx Asthma: Yes Hx Bronchitis: Yes Hx Chronic Obstructive Pulmonary Disease (COPD): Yes (Emphysema) Hx Emphysema: Yes Hx Pneumonia: Yes Hx Sleep Apnea: Yes - NEUROLOGICAL Hx Neurological Disorder: No - HEENT Hx HEENT Problems: Yes Hx Cataracts: Yes (left cataract removed, r cataract) Other/Comment: wears eyeglasses for distance - RENAL Hx Chronic Kidney Disease: Yes Hx Kidney Stones: Yes - ENDOCRINE/METABOLIC Hx Endocrine Disorders: Yes Hx Diabetes Mellitus Type 2: Yes - HEMATOLOGICAL/ONCOLOGICAL Hx Anemia: Yes - INTEGUMENTARY Hx Dermatological Problems: No - MUSCULOSKELETAL/RHEUMATOLOGICAL Hx Arthritis: Yes - GASTROINTESTINAL Hx Gastritis: No - PSYCHIATRIC Hx Anxiety: Yes Hx Substance Use: No - SURGICAL HISTORY Hx Surgeries: Yes Hx Cardiac Catheterization: Yes (11/2015) Other/Comment: colon resection with right ileostomy - ANESTHESIA Hx Anesthesia: Yes Hx Anesthesia Reactions: No Hx Malignant Hyperthermia: No Meds Allergies/Adverse Reactions: Allergies Allergy/AdvReac Type Severity Reaction Status Date / Time acetaminophen [From Tylenol] Allergy RASH Verified 09/19/17 12:19 FISH Allergy SWELLING Verified 09/19/17 12:19 shrimp Allergy SHORTNESS Verified 09/19/17 12:19 OF BREATH IV dye Allergy Severe ANAPHYLAXIS Uncoded 09/19/17 12:19 - Medications Medications: Current Medications Al Hydrox/Mg Hydrox/Simethicone (Maalox 30 Ml) 30 ml PO Q6H PRN PRN Reason: Indigestion / Heartburn Albuterol/Ipratropium (Duoneb 3 Mg/0.5 Mg (3 Ml) Ud) 3 ml INH RQ6 [facility]ANCE Alprazolam (Xanax) 0.5 mg PO Q12 [facility] Stop: 09/26/17 22:01 Budesonide (Pulmicort Respules) 0.5 mg IH RQ12 [facility] Last Admin: 09/19/17 19:57 Dose: 0.5 mg Enoxaparin Sodium (Lovenox) 40 mg SC DAILY [facility] Guaifenesin (Robitussin) 300 mg PO QID [facility] Insulin Aspart (Novolog) 0 unit SC ACHS [facility] PRN Reason: Protocol Magnesium Hydroxide (Milk Of Magnesia) 30 ml PO DAILY PRN PRN Reason: Constipation Metformin HCl (Glucophage) 1,000 mg PO BID [facility] Last Admin: 09/19/17 18:50 Dose: 1,000 mg Methylprednisolone (Solu-Medrol) 40 mg IVP Q8 [facility] Montelukast Sodium (Singulair) 10 mg PO HS [facility] Pregabalin (Lyrica) 50 mg PO BID [facility] Last Admin: 09/19/17 18:50 Dose: 50 mg Roflumilast (Daliresp) 500 mcg PO DAILY [facility] Fluticasone/Salmeterol (Advair Diskus 250/50) 1 puff INH RBID [facility] Physical Exam - Constitutional Appears: Non-toxic, No Acute Distress - Head Exam Head Exam: ATRAUMATIC - Eye Exam Eye Exam: EOMI. absent: Scleral icterus - ENT Exam ENT Exam: Mucous Membranes Moist - Respiratory Exam Respiratory Exam: Wheezes, NORMAL BREATHING PATTERN. absent: Accessory Muscle Use, Chest Wall Tenderness, Respiratory Distress - Cardiovascular Exam Cardiovascular Exam: Tachycardia, +S1, +S2. absent: Bradycardia - GI/Abdominal Exam GI & Abdominal Exam: Soft. absent: Diminished Bowel Sounds, Distended, Rebound , Rigid, Tenderness Additional comments: Ileostomy good output midline incision well healed abd soft and non-tender - Back Exam Back exam: absent: CVA tenderness (L), CVA tenderness (R) - Neurological Exam Neurological exam: Alert, Oriented x3 - Psychiatric Exam Psychiatric exam: Normal Affect - Skin Skin Exam: Intact, Warm Results - Vital Signs Recent Vital Signs: Last Vital Signs Temp 99 F 09/19/17 12:18 Pulse 118 H 09/19/17 19:18 Resp 17 09/19/17 19:18 BP 99/62 L 09/19/17 19:18 Pulse Ox 98 09/19/17 19:18 - Labs Result Diagrams: 09/19/17 13:38 09/19/17 13:38 Labs: Laboratory Results - last 24 hr 09/19/17 09/19/17 09/19/17 12:04 13:38 13:38 WBC 10.5 RBC 4.58 Hgb 10.3 L Hct 32.2 L MCV 70.3 L D MCH 22.4 L MCHC 31.9 L RDW 25.0 H Plt Count 411 H D MPV 7.9 Neut % (Auto) 60.1 Lymph % (Auto) 28.6 [place] % (Auto) 6.1 Eos % (Auto) 4.1 H Baso % (Auto) 1.1 Neut # (Auto) 6.3 Lymph # (Auto) 3.0 [place] # (Auto) 0.6 Eos # (Auto) 0.4 Baso # (Auto) 0.1 Sodium 141 Potassium 3.9 Chloride 96 L Carbon Dioxide 33 H Anion Gap 15 BUN 8 L Creatinine 0.5 L Est GFR ( Amer) > 60 Est GFR (Non-Af Amer) > 60 POC Glucose (mg/dL) 145 H Random Glucose 174 H Calcium 9.0 Magnesium 1.6 Total Bilirubin 0.3 AST 22 ALT 38 Alkaline Phosphatase 161 H D Total Protein 7.2 Albumin 3.8 Globulin 3.4 Albumin/Globulin Ratio 1.1 09/19/17 18:20 WBC RBC Hgb Hct MCV MCH MCHC RDW Plt Count MPV Neut % (Auto) Lymph % (Auto) [place] % (Auto) Eos % (Auto) Baso % (Auto) Neut # (Auto) Lymph # (Auto) [place] # (Auto) Eos # (Auto) Baso # (Auto) Sodium Potassium Chloride Carbon Dioxide Anion Gap BUN Creatinine Est GFR ( Amer) Est GFR (Non-Af Amer) POC Glucose (mg/dL) 298 H Random Glucose Calcium Magnesium Total Bilirubin AST ALT Alkaline Phosphatase Total Protein Albumin Globulin Albumin/Globulin Ratio Assessment & Plan - Assessment and Plan (Free Text) Assessment: 67M admitted for SOB and COPD exacerbation. Surgery consulted for pt hx s/p LAR w/ loop ileostomy on 03/2017 for management. Plan: - Plan for colonoscopy from GI - will need to be off steroids & medically optimized to be cleared prior to any surgical intervention - medical management per primary team - no acute surgical intervention at this time - discussed w/ Dr. Nieto surgical attending Pedro Gatica PGY1
[2017-09-19] MEDS: Albuterol-Ipratrop 3 mg / 0.5 (3 ml) UD INH SCH (20:20)
[2017-09-19] MEDS: Fluticasone-Salmeterol 500-50mcg Diskus INH SCH (20:43)
[2017-09-19] MEDS ORDERED: MethylPREDNISolone 40 mg Vial ONE (21:22)
[2017-09-19] MEDS ORDERED: (Novolog) Insulin Aspart, Recombinant 100 u/ml 10 ml vial ONE (21:23)
[2017-09-19] MEDS: (Novolog) Insulin Aspart, Recombinant 100 u/ml 10 ml vial SC SCH (21:25)
[2017-09-19] MEDS: guaiFENesin 100 mg/5 ml Syrup UD PO SCH (21:26)
[2017-09-19] MEDS: MethylPREDNISolone 40 mg Vial IVP SCH (21:26)
--- NOTE | 2017-09-19 23:46 | CP.PCM.HP ---
History of Present Illness - History of Present Illness History of Present Illness: CC: shortness of breath HPI: 67 y/o male with PMHx of COPD , steroid induced DM, ex smoker , s/ p colostomy due to colon cancer brought to ED by EMS with complaints of worsening chronic sob for 2 weeks. Patient was recently in rehab and discharged as per with no improvement. reports cough is constant and he is sob on exertion, unable to walk secondary to sob. Patient was given Duo neb, albuterol and Solumedrol enroute. Patient reports he has ileostomy for colon cancer and has scheduled Colonoscopy 09/26/17 but is unable to do any prep secondary to sob. Patient denies leg swelling, sputum, fever or any other complaints at this time. Present on Admission - Present on Admission Any Indicators Present on Admission: Yes Review of Systems - Review of Systems Systems not reviewed;Unavailable: Acuity of Condition - Constitutional Constitutional: Fatigue, Lethargy, Weakness - EENT Eyes: absent: As Per HPI, Blind Spots, Blurred Vision, Change in Vision, Decreased Night Vision, Diplopia, Discharge, Dry Eye, Exophthalmos, Floaters, Irritation, Itchy Eyes, Loss of Peripheral Vision, Pain, Photophobia, Requires Corrective Lenses, Sees Flashes, Spots in Vision, Tunnel Vision, Other Visual Disturbances, Loss of Vision, Other Nose/Mouth/Throat: Nasal Congestion - Cardiovascular Cardiovascular: Chest Pain at Rest, Dyspnea, Rapid Heart Rate - Respiratory Respiratory: Cough, Dyspnea, Wheezing, Snoring, Chest Congestion, Excessive Mucous Production, Pain with Coughing - Gastrointestinal Gastrointestinal: Abdominal Pain. absent: As Per HPI, Belching, Bloating, Change in Bowel Habits, Change in Stool Character, Coffee Ground Emesis, Constipation, Cramping, Diarrhea, Dyspepsia, Dysphagia, Early Satiety, Excessive Flatus, Fecal Incontinence, Heartburn, Hematemesis, Hematochezia, Loose Stools, Melena, Nausea, Odynophagia, Temesmus, Vomiting, Other - Genitourinary Genitourinary: absent: As Per HPI, Change in Urinary Stream, Difficulty Urinating, Dysuria, Flank Pain, Hematuria, Pyuria, Nocturia, Urinary Incontinence, Urinary Frequency, Urinary Hesitance, Urinary Urgency, Voiding Freq/Small Amts, Freq UTI, Hx Renal/Bladder Calculi, Hx /Renal Surgery, Bladder Distension, Other Past Patient History - Infectious Disease Hx of Infectious Diseases: None - Past Medical History & Family History Past Medical History?: Yes - Past Social History Smoking Status: Former Smoker - CARDIAC Hx Cardia Arrhythmia: Yes (SVT) Hx Congestive Heart Failure: Yes Hx Hypercholesterolemia: Yes Hx Hypertension: Yes - PULMONARY Hx Asthma: Yes Hx Bronchitis: Yes Hx Chronic Obstructive Pulmonary Disease (COPD): Yes (Emphysema) Hx Emphysema: Yes Hx Pneumonia: Yes Hx Sleep Apnea: Yes - NEUROLOGICAL Hx Neurological Disorder: No - HEENT Hx HEENT Problems: Yes Hx Cataracts: Yes (left cataract removed, r cataract) Other/Comment: wears eyeglasses for distance - RENAL Hx Chronic Kidney Disease: Yes Hx Kidney Stones: Yes - ENDOCRINE/METABOLIC Hx Endocrine Disorders: Yes Hx Diabetes Mellitus Type 2: Yes - HEMATOLOGICAL/ONCOLOGICAL Hx Anemia: Yes - INTEGUMENTARY Hx Dermatological Problems: No - MUSCULOSKELETAL/RHEUMATOLOGICAL Hx Arthritis: Yes - GASTROINTESTINAL Hx Gastritis: No - PSYCHIATRIC Hx Anxiety: Yes Hx Substance Use: No - SURGICAL HISTORY Hx Surgeries: Yes Hx Cardiac Catheterization: Yes (11/2015) Other/Comment: colon resection with right ileostomy - ANESTHESIA Hx Anesthesia: Yes Hx Anesthesia Reactions: No Hx Malignant Hyperthermia: No Meds Allergies/Adverse Reactions: Allergies Allergy/AdvReac Type Severity Reaction Status Date / Time acetaminophen [From Tylenol] Allergy RASH Verified 09/19/17 12:19 FISH Allergy SWELLING Verified 09/19/17 12:19 shrimp Allergy SHORTNESS Verified 09/19/17 12:19 OF BREATH IV dye Allergy Severe ANAPHYLAXIS Uncoded 09/19/17 12:19 Physical Exam - Constitutional Appears: No Acute Distress, Chronically Ill - Respiratory Exam Respiratory Exam: Decreased Breath Sounds, Rales, Wheezes - Cardiovascular Exam Cardiovascular Exam: Tachycardia, +S1, +S2 - GI/Abdominal Exam GI & Abdominal Exam: Normal Bowel Sounds, Soft. absent: Tenderness - Back Exam Back exam: NORMAL INSPECTION - Neurological Exam Neurological exam: Alert, Normal Gait - Psychiatric Exam Psychiatric exam: Normal Affect, Normal Mood - Skin Additional comments: thin skin with bruises Results - Vital Signs Recent Vital Signs: Last Vital Signs Temp 98.3 F 09/19/17 22:28 Pulse 108 H 09/19/17 23:15 Resp 20 09/19/17 23:15 BP 93/52 L 09/19/17 23:15 Pulse Ox 98 09/19/17 23:15 - Labs Result Diagrams: 09/19/17 13:38 09/19/17 13:38 Labs: Laboratory Results - last 24 hr 09/19/17 09/19/17 09/19/17 12:04 13:38 13:38 WBC 10.5 RBC 4.58 Hgb 10.3 L Hct 32.2 L MCV 70.3 L D MCH 22.4 L MCHC 31.9 L RDW 25.0 H Plt Count 411 H D MPV 7.9 Neut % (Auto) 60.1 Lymph % (Auto) 28.6 [place] % (Auto) 6.1 Eos % (Auto) 4.1 H Baso % (Auto) 1.1 Neut # (Auto) 6.3 Lymph # (Auto) 3.0 [place] # (Auto) 0.6 Eos # (Auto) 0.4 Baso # (Auto) 0.1 Sodium 141 Potassium 3.9 Chloride 96 L Carbon Dioxide 33 H Anion Gap 15 BUN 8 L Creatinine 0.5 L Est GFR ( Amer) > 60 Est GFR (Non-Af Amer) > 60 POC Glucose (mg/dL) 145 H Random Glucose 174 H Calcium 9.0 Magnesium 1.6 Total Bilirubin 0.3 AST 22 ALT 38 Alkaline Phosphatase 161 H D Total Protein 7.2 Albumin 3.8 Globulin 3.4 Albumin/Globulin Ratio 1.1 09/19/17 09/19/17 18:20 21:17 WBC RBC Hgb Hct MCV MCH MCHC RDW Plt Count MPV Neut % (Auto) Lymph % (Auto) [place] % (Auto) Eos % (Auto) Baso % (Auto) Neut # (Auto) Lymph # (Auto) [place] # (Auto) Eos # (Auto) Baso # (Auto) Sodium Potassium Chloride Carbon Dioxide Anion Gap BUN Creatinine Est GFR ( Amer) Est GFR (Non-Af Amer) POC Glucose (mg/dL) 298 H 301 H Random Glucose Calcium Magnesium Total Bilirubin AST ALT Alkaline Phosphatase Total Protein Albumin Globulin Albumin/Globulin Ratio Assessment & Plan (1) COPD exacerbation Status: Acute Priority: Medium (2) Allergic rhinitis Status: Chronic Priority: Medium (3) Anxiety Status: Chronic (4) Steroid-induced diabetes Status: Chronic
[2017-09-20] MEDS ORDERED: Albuterol-Ipratrop 3 mg / 0.5 (3 ml) UD ONE (01:23)
[2017-09-20] MEDS: Albuterol-Ipratrop 3 mg / 0.5 (3 ml) UD INH SCH ×4 (01:25→22:37)
[2017-09-20] MEDS: MethylPREDNISolone 40 mg Vial IVP SCH (06:20)
--- NOTE | 2017-09-20 06:32 | CP.PCM.CON ---
<Alex Alcaraz - Last Filed: 09/20/17 08:36> History of Present Illness - History of Present Illness History of Present Illness: GI Consult note: 67M with past medical history of COPD, CHF, HTN, DM, anxiety, REYNA, NIDDM, presents to the ED for SOB and admitted for shortness of breath and non productive cough. Patient states that his symptoms started yesterday and has gotten progressively worse. Pt had history of chronic anemia and underwent colonoscopy in 03/2017 which revealed a large obstructing sigmoid polypoid lesion s/p surgical LAR and ileostomy. 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 Patient states he is having good output from the ileostomy. Patient is scheduled to have a colonoscopy by Dr. Black next week but states that it has been cancelled. Denies any bloody output from ostomy. He is tolerating PO diet without difficulty. Denies any abd pain, fevers, chills, nausea, vomiting, diarrhea, changes in urinary or bowel habits. GI team consulted for evaluation of colostomy. 12 Point ROS performed and negative other than stated above. PMH: COPD, Anemia, Diabetes Mellitus, REYNA, anxiety PSH: LAR with loop ileostomy, Cataract surgery, cardiac catherization w/o stent placement ALL: tylenol, fish, shrip Social History: former smoker of 2ppd for 40 years quit 5yrs ago, last ETOH was > 14yrs ago, denies recreational drug use Endo Hx: EGD 03/29 showed candidiasis esophagitis, gastritis - colonoscopy as above Review of Systems - Review of Systems All systems: reviewed and no additional remarkable complaints except Past Patient History - Infectious Disease Hx of Infectious Diseases: None - Past Medical History & Family History Past Medical History?: Yes - Past Social History Smoking Status: Former Smoker - CARDIAC Hx Cardia Arrhythmia: Yes (SVT) Hx Congestive Heart Failure: Yes Hx Hypercholesterolemia: Yes Hx Hypertension: Yes - PULMONARY Hx Asthma: Yes Hx Bronchitis: Yes Hx Chronic Obstructive Pulmonary Disease (COPD): Yes (Emphysema) Hx Emphysema: Yes Hx Pneumonia: Yes Hx Sleep Apnea: Yes - NEUROLOGICAL Hx Neurological Disorder: No - HEENT Hx HEENT Problems: Yes Hx Cataracts: Yes (left cataract removed, r cataract) Other/Comment: wears eyeglasses for distance - RENAL Hx Chronic Kidney Disease: Yes Hx Kidney Stones: Yes - ENDOCRINE/METABOLIC Hx Endocrine Disorders: Yes Hx Diabetes Mellitus Type 2: Yes - HEMATOLOGICAL/ONCOLOGICAL Hx Anemia: Yes - INTEGUMENTARY Hx Dermatological Problems: No - MUSCULOSKELETAL/RHEUMATOLOGICAL Hx Arthritis: Yes - GASTROINTESTINAL Hx Gastritis: No - PSYCHIATRIC Hx Anxiety: Yes Hx Substance Use: No - SURGICAL HISTORY Hx Surgeries: Yes Hx Cardiac Catheterization: Yes (11/2015) Other/Comment: colon resection with right ileostomy - ANESTHESIA Hx Anesthesia: Yes Hx Anesthesia Reactions: No Hx Malignant Hyperthermia: No Meds Allergies/Adverse Reactions: Allergies Allergy/AdvReac Type Severity Reaction Status Date / Time acetaminophen [From Tylenol] Allergy RASH Verified 09/19/17 12:19 FISH Allergy SWELLING Verified 09/19/17 12:19 shrimp Allergy SHORTNESS Verified 09/19/17 12:19 OF BREATH IV dye Allergy Severe ANAPHYLAXIS Uncoded 09/19/17 12:19 - Medications Medications: Current Medications Al Hydrox/Mg Hydrox/Simethicone (Maalox 30 Ml) 30 ml PO Q6H PRN PRN Reason: Indigestion / Heartburn Albuterol/Ipratropium (Duoneb 3 Mg/0.5 Mg (3 Ml) Ud) 3 ml INH RQ6 [facility] Last Admin: 09/20/17 01:25 Dose: 3 ml Alprazolam (Xanax) 0.5 mg PO Q12 [facility] Stop: 09/26/17 22:01 Last Admin: 09/19/17 21:26 Dose: 0.5 mg Budesonide (Pulmicort Respules) 0.5 mg IH RQ12 [facility] Last Admin: 09/19/17 19:57 Dose: 0.5 mg Enoxaparin Sodium (Lovenox) 40 mg SC DAILY [facility] Guaifenesin (Robitussin) 300 mg PO QID [facility] Last Admin: 09/19/17 21:26 Dose: 300 mg Insulin Aspart (Novolog) 0 unit SC ACHS [facility] PRN Reason: Protocol Last Admin: 09/19/17 21:25 Dose: 4 unit Magnesium Hydroxide (Milk Of Magnesia) 30 ml PO DAILY PRN PRN Reason: Constipation Metformin HCl (Glucophage) 1,000 mg PO BID [facility] Last Admin: 09/19/17 18:50 Dose: 1,000 mg Methylprednisolone (Solu-Medrol) 40 mg IVP Q8 [facility] Last Admin: 09/20/17 06:20 Dose: 40 mg Montelukast Sodium (Singulair) 10 mg PO HS [facility] Last Admin: 09/19/17 21:26 Dose: 10 mg Pregabalin (Lyrica) 50 mg PO BID [facility] Last Admin: 09/19/17 18:50 Dose: 50 mg Roflumilast (Daliresp) 500 mcg PO DAILY [facility] Fluticasone/Salmeterol (Advair Diskus 500/50) 1 puff INH RBID [facility] Last Admin: 09/19/17 20:43 Dose: 1 puff Physical Exam - Constitutional Appears: No Acute Distress - Head Exam Head Exam: ATRAUMATIC, NORMOCEPHALIC - Eye Exam Eye Exam: EOMI, PERRL - ENT Exam ENT Exam: Mucous Membranes Moist - Respiratory Exam Respiratory Exam: Clear to Auscultation Bilateral. absent: Rales, Wheezes - Cardiovascular Exam Cardiovascular Exam: REGULAR RHYTHM, RRR, +S1, +S2 - GI/Abdominal Exam GI & Abdominal Exam: Normal Bowel Sounds, Soft. absent: Distended, Organomegaly , Tenderness Additional comments: Ostomy site clean with no surrounding erythema - Extremities Exam Extremities exam: Negative for: calf tenderness, pedal edema - Psychiatric Exam Psychiatric exam: Normal Mood - Skin Skin Exam: Dry, Intact, Warm Results - Vital Signs Recent Vital Signs: Last Vital Signs Temp 98.1 F 09/20/17 02:10 Pulse 65 09/20/17 02:10 Resp 22 09/20/17 03:26 BP 117/65 09/20/17 02:10 Pulse Ox 98 09/20/17 02:10 - Labs Result Diagrams: 09/19/17 13:38 09/19/17 13:38 Labs: Laboratory Results - last 24 hr 09/19/17 09/19/17 09/19/17 12:04 13:38 13:38 WBC 10.5 RBC 4.58 Hgb 10.3 L Hct 32.2 L MCV 70.3 L D MCH 22.4 L MCHC 31.9 L RDW 25.0 H Plt Count 411 H D MPV 7.9 Neut % (Auto) 60.1 Lymph % (Auto) 28.6 [place] % (Auto) 6.1 Eos % (Auto) 4.1 H Baso % (Auto) 1.1 Neut # (Auto) 6.3 Lymph # (Auto) 3.0 [place] # (Auto) 0.6 Eos # (Auto) 0.4 Baso # (Auto) 0.1 Sodium 141 Potassium 3.9 Chloride 96 L Carbon Dioxide 33 H Anion Gap 15 BUN 8 L Creatinine 0.5 L Est GFR ( Amer) > 60 Est GFR (Non-Af Amer) > 60 POC Glucose (mg/dL) 145 H Random Glucose 174 H Calcium 9.0 Magnesium 1.6 Total Bilirubin 0.3 AST 22 ALT 38 Alkaline Phosphatase 161 H D Total Protein 7.2 Albumin 3.8 Globulin 3.4 Albumin/Globulin Ratio 1.1 09/19/17 09/19/17 18:20 21:17 WBC RBC Hgb Hct MCV MCH MCHC RDW Plt Count MPV Neut % (Auto) Lymph % (Auto) [place] % (Auto) Eos % (Auto) Baso % (Auto) Neut # (Auto) Lymph # (Auto) [place] # (Auto) Eos # (Auto) Baso # (Auto) Sodium Potassium Chloride Carbon Dioxide Anion Gap BUN Creatinine Est GFR ( Amer) Est GFR (Non-Af Amer) POC Glucose (mg/dL) 298 H 301 H Random Glucose Calcium Magnesium Total Bilirubin AST ALT Alkaline Phosphatase Total Protein Albumin Globulin Albumin/Globulin Ratio Assessment & Plan - Assessment and Plan (Free Text) Assessment: 67M with past medical history of COPD, CHF, HTN, DM, anxiety, REYNA, NIDDM, presents to the ED for SOB and admitted for shortness of breath and non productive cough. 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 1. History of colon cancer s/p LAR with ileostomy 2. COPD - acute exacerbation 3. HTN 4. CHF 5. DM - Diet as tolerated - Conservative management with pain control and anti-emetics - H/H stable - cont to monitor - F/u surgical consult and recs - F/u pulmonary consult regarding COPD disease exacerbation management - Pt with history of multiple admission related COPD exacerbation on home O2. Patient will benefit from colonoscopy once patient is more medically stable. Case and plan was reviewed and discussed in detail with Dr Black. <Adrián Black - Last Filed: 09/20/17 10:48> Meds - Medications Medications: Current Medications Al Hydrox/Mg Hydrox/Simethicone (Maalox 30 Ml) 30 ml PO Q6H PRN PRN Reason: Indigestion / Heartburn Albuterol/Ipratropium (Duoneb 3 Mg/0.5 Mg (3 Ml) Ud) 3 ml INH RQ6 [facility] Last Admin: 09/20/17 07:32 Dose: 3 ml Alprazolam (Xanax) 0.5 mg PO Q12 [facility] Stop: 09/26/17 22:01 Last Admin: 09/20/17 09:09 Dose: 0.5 mg Budesonide (Pulmicort Respules) 0.5 mg IH RQ12 [facility] Last Admin: 09/20/17 07:32 Dose: 0.5 mg Enoxaparin Sodium (Lovenox) 40 mg SC DAILY [facility] Last Admin: 09/20/17 09:11 Dose: 40 mg Guaifenesin (Robitussin) 300 mg PO QID [facility] Last Admin: 09/20/17 09:10 Dose: 300 mg Insulin Aspart (Novolog) 0 unit SC ACHS [facility] PRN Reason: Protocol Last Admin: 09/20/17 07:30 Dose: Not Given Magnesium Hydroxide (Milk Of Magnesia) 30 ml PO DAILY PRN PRN Reason: Constipation Metformin HCl (Glucophage) 1,000 mg PO BID [facility] Last Admin: 09/20/17 09:08 Dose: 1,000 mg Methylprednisolone (Solu-Medrol) 40 mg IVP Q8 [facility] Last Admin: 09/20/17 06:20 Dose: 40 mg Montelukast Sodium (Singulair) 10 mg PO HS [facility] Last Admin: 09/19/17 21:26 Dose: 10 mg Pregabalin (Lyrica) 50 mg PO BID [facility] Last Admin: 09/20/17 09:09 Dose: 50 mg Roflumilast (Daliresp) 500 mcg PO DAILY [facility] Last Admin: 09/20/17 09:09 Dose: 500 mcg Fluticasone/Salmeterol (Advair Diskus 500/50) 1 puff INH RBID [facility] Last Admin: 09/20/17 07:54 Dose: 1 puff Results - Vital Signs Recent Vital Signs: Last Vital Signs Temp 97.5 F L 09/20/17 07:52 Pulse 103 H 09/20/17 08:00 Resp 20 09/20/17 07:52 BP 110/69 09/20/17 07:52 Pulse Ox 99 09/20/17 07:52 - Labs Result Diagrams: 09/19/17 13:38 09/19/17 13:38 Labs: Laboratory Results - last 24 hr 09/19/17 09/19/17 09/19/17 12:04 13:38 13:38 WBC 10.5 RBC 4.58 Hgb 10.3 L Hct 32.2 L MCV 70.3 L D MCH 22.4 L MCHC 31.9 L RDW 25.0 H Plt Count 411 H D MPV 7.9 Neut % (Auto) 60.1 Lymph % (Auto) 28.6 [place] % (Auto) 6.1 Eos % (Auto) 4.1 H Baso % (Auto) 1.1 Neut # (Auto) 6.3 Lymph # (Auto) 3.0 [place] # (Auto) 0.6 Eos # (Auto) 0.4 Baso # (Auto) 0.1 Sodium 141 Potassium 3.9 Chloride 96 L Carbon Dioxide 33 H Anion Gap 15 BUN 8 L Creatinine 0.5 L Est GFR ( Amer) > 60 Est GFR (Non-Af Amer) > 60 POC Glucose (mg/dL) 145 H Random Glucose 174 H Calcium 9.0 Magnesium 1.6 Total Bilirubin 0.3 AST 22 ALT 38 Alkaline Phosphatase 161 H D Total Protein 7.2 Albumin 3.8 Globulin 3.4 Albumin/Globulin Ratio 1.1 09/19/17 09/19/17 09/20/17 18:20 21:17 07:11 WBC RBC Hgb Hct MCV MCH MCHC RDW Plt Count MPV Neut % (Auto) Lymph % (Auto) [place] % (Auto) Eos % (Auto) Baso % (Auto) Neut # (Auto) Lymph # (Auto) [place] # (Auto) Eos # (Auto) Baso # (Auto) Sodium Potassium Chloride Carbon Dioxide Anion Gap BUN Creatinine Est GFR ( Amer) Est GFR (Non-Af Amer) POC Glucose (mg/dL) 298 H 301 H 148 H Random Glucose Calcium Magnesium Total Bilirubin AST ALT Alkaline Phosphatase Total Protein Albumin Globulin Albumin/Globulin Ratio Attending/Attestation - Attestation I have personally seen and examined this patient.: Yes I have fully participated in the care of the patient.: Yes I have reviewed all pertinent clinical information: Yes Notes (Text): 09/20/17 10:38 I have seen and examined patient with GI fellow and medical records supervisor. Agree with above documentation with the following additions. In brief, this is a 67 year old male with history of end stage COPD, CHF, HTN, DM who presented to hospital for complaint of progressive dyspnea on exertion with cough, currently undergoing treatment for acute COPD exacerbation. He was recently discharged from rehabilitation facility after hospitalization for similar complaints. He carries a history of colon cancer with obstructive sigmoid lesion found on colonoscopy in March 2017, s/p surgical resection with ostomy. Patient was tentatively scheduled for outpatient colonoscopy next week prior to consideration of surgical reversal of ostomy. He denies abdominal pain, nausea , vomiting, fever/chills. He typically empties his ostomy bag three times a week, denies bloody output. Family history: reviewed, patient denies history of GI malignancies Additional physical examination: Neurological: AAO x 3, CN 3-12 intact Dyspnea on exertion, acute COPD exacerbation HTN / DM History of colon cancer, s/p surgical resection and ostomy CHF - Diet as tolerated - H/H stable, continue to monitor - Case discussed with Dr. Nuno, patient remains high risk for endoscopic procedure from pulmonary standpoint, however the initial plan was to attempt this electively as outpatient when optimized from medical standpoint. However, given recent COPD exacerbation, will defer elective procedure for time being. - Follow up pulmonary recommendations - After hospital discharge and patient is symptom free, will attempt to reschedule colonoscopy. No planned acute interventions, will sign off case. Please reconsult as necessary, thank you.
[2017-09-20] MEDS: (Novolog) Insulin Aspart, Recombinant 100 u/ml 10 ml vial SC SCH ×4 (07:30→21:13)
[2017-09-20] MEDS: Budesonide 0.5 mg/2 ml Inhal Susp UD IH SCH ×2 (07:32→22:37)
[2017-09-20] MEDS: Fluticasone-Salmeterol 500-50mcg Diskus INH SCH ×2 (07:54→22:37)
[2017-09-20] MEDS: guaiFENesin 100 mg/5 ml Syrup UD PO SCH ×4 (09:10→22:22)
[2017-09-20] MEDS: Enoxaparin 40 mg Syringe SC SCH (09:11)
--- NOTE | 2017-09-20 17:45 | CP.PCM.PN ---
Subjective - Date & Time of Evaluation Date of Evaluation: 09/20/17 Time of Evaluation: 09:25 - Subjective Subjective: Patient was seen and examined at the bedside. Patient reports he did not sleep well last night since he did not use a BIpap. He reports a dry cough, wheezing and some shortness of breath that has been improving since treatment. He denies any chest pain, chills, or nausea. Assessment/Plan COPD Exacerbation - use biPAP as needed -continue steroid, duonebs, singulair, advair, ruflumilast -guafenasin for cough -discuss with GI regarding pulmonary clearance for Colonoscopy Objective - Vital Signs/Intake and Output Vital Signs (last 24 hours): Temp Pulse Resp BP Pulse Ox 97.6 F 112 H 20 111/64 98 09/20/17 16:00 09/20/17 16:00 09/20/17 16:00 09/20/17 16:00 09/20/17 16:00 Intake and Output: 09/20/17 09/20/17 06:59 18:59 Intake Total 550 Output Total 150 Balance 400 - Medications Medications: Current Medications Al Hydrox/Mg Hydrox/Simethicone (Maalox 30 Ml) 30 ml PO Q6H PRN PRN Reason: Indigestion / Heartburn Albuterol/Ipratropium (Duoneb 3 Mg/0.5 Mg (3 Ml) Ud) 3 ml INH RQ6 [facility] Last Admin: 09/20/17 13:43 Dose: 3 ml Alprazolam (Xanax) 0.5 mg PO Q12 [facility] Stop: 09/26/17 22:01 Last Admin: 09/20/17 09:09 Dose: 0.5 mg Budesonide (Pulmicort Respules) 0.5 mg IH RQ12 [facility] Last Admin: 09/20/17 07:32 Dose: 0.5 mg Enoxaparin Sodium (Lovenox) 40 mg SC DAILY [facility] Last Admin: 09/20/17 09:11 Dose: 40 mg Guaifenesin (Robitussin) 300 mg PO QID [facility] Last Admin: 09/20/17 13:21 Dose: 300 mg Insulin Aspart (Novolog) 0 unit SC ACHS [facility] PRN Reason: Protocol Last Admin: 09/20/17 17:11 Dose: Not Given Magnesium Hydroxide (Milk Of Magnesia) 30 ml PO DAILY PRN PRN Reason: Constipation Metformin HCl (Glucophage) 1,000 mg PO BID [facility] Last Admin: 09/20/17 09:08 Dose: 1,000 mg Methylprednisolone (Solu-Medrol) 40 mg IVP DAILY [facility] Montelukast Sodium (Singulair) 10 mg PO HS [facility] Last Admin: 09/19/17 21:26 Dose: 10 mg Pregabalin (Lyrica) 50 mg PO BID [facility] Last Admin: 09/20/17 09:09 Dose: 50 mg Roflumilast (Daliresp) 500 mcg PO DAILY [facility] Last Admin: 09/20/17 09:09 Dose: 500 mcg Fluticasone/Salmeterol (Advair Diskus 500/50) 1 puff INH RBID [facility] Last Admin: 09/20/17 07:54 Dose: 1 puff - Labs Labs: 09/19/17 13:38 09/19/17 13:38 Assessment and Plan (1) Acute exacerbation of chronic obstructive airways disease Status: Acute (2) Chronic respiratory failure Status: Acute
--- NOTE | 2017-09-20 23:31 | CP.PCM.PN ---
Subjective - Date & Time of Evaluation Date of Evaluation: 09/20/17 Time of Evaluation: 18:40 - Subjective Subjective: Patient was seen and examined at the bedside. Patient reports he did not sleep well last night since he did not use a BIpap. He reports a dry cough, wheezing and some shortness of breath that has been improving since treatment. He denies any chest pain, chills, or nausea. Objective - Vital Signs/Intake and Output Vital Signs (last 24 hours): Temp Pulse Resp BP Pulse Ox 97.6 F 112 H 20 111/64 98 09/20/17 16:00 09/20/17 16:00 09/20/17 16:00 09/20/17 16:00 09/20/17 16:00 Intake and Output: 09/20/17 09/21/17 18:59 06:59 Intake Total 550 Output Total 150 Balance 400 - Medications Medications: Current Medications Al Hydrox/Mg Hydrox/Simethicone (Maalox 30 Ml) 30 ml PO Q6H PRN PRN Reason: Indigestion / Heartburn Albuterol/Ipratropium (Duoneb 3 Mg/0.5 Mg (3 Ml) Ud) 3 ml INH RQ6 [facility] Last Admin: 09/20/17 22:37 Dose: 3 ml Alprazolam (Xanax) 0.5 mg PO Q12 [facility] Stop: 09/26/17 22:01 Last Admin: 09/20/17 22:19 Dose: 0.5 mg Budesonide (Pulmicort Respules) 0.5 mg IH RQ12 [facility] Last Admin: 09/20/17 22:37 Dose: 0.5 mg Enoxaparin Sodium (Lovenox) 40 mg SC DAILY [facility] Last Admin: 09/20/17 09:11 Dose: 40 mg Guaifenesin (Robitussin) 300 mg PO QID [facility] Last Admin: 09/20/17 22:22 Dose: 300 mg Insulin Aspart (Novolog) 0 unit SC ACHS [facility] PRN Reason: Protocol Last Admin: 09/20/17 21:13 Dose: Not Given Magnesium Hydroxide (Milk Of Magnesia) 30 ml PO DAILY PRN PRN Reason: Constipation Metformin HCl (Glucophage) 1,000 mg PO BID [facility] Last Admin: 09/20/17 17:43 Dose: 1,000 mg Methylprednisolone (Solu-Medrol) 40 mg IVP DAILY [facility] Montelukast Sodium (Singulair) 10 mg PO HS [facility] Last Admin: 09/20/17 22:19 Dose: 10 mg Pregabalin (Lyrica) 50 mg PO BID [facility] Last Admin: 09/20/17 17:43 Dose: 50 mg Roflumilast (Daliresp) 500 mcg PO DAILY [facility] Last Admin: 09/20/17 09:09 Dose: 500 mcg Fluticasone/Salmeterol (Advair Diskus 500/50) 1 puff INH RBID [facility] Last Admin: 09/20/17 22:37 Dose: 1 puff - Labs Labs: 09/19/17 13:38 09/19/17 13:38 - Constitutional Appears: No Acute Distress - Head Exam Head Exam: ATRAUMATIC, NORMAL INSPECTION, NORMOCEPHALIC - Eye Exam Eye Exam: EOMI, Normal appearance, PERRL Pupil Exam: NORMAL ACCOMODATION, PERRL - Respiratory Exam Respiratory Exam: Decreased Breath Sounds, Rales, Rhonchi - Cardiovascular Exam Cardiovascular Exam: REGULAR RHYTHM, +S1, +S2. absent: Murmur - GI/Abdominal Exam GI & Abdominal Exam: Soft, Normal Bowel Sounds. absent: Tenderness - Neurological Exam Neurological Exam: Alert, Awake, CN II-XII Intact, Normal Gait, Oriented x3 - Psychiatric Exam Psychiatric exam: Normal Affect, Normal Mood Assessment and Plan (1) COPD exacerbation Assessment & Plan: - use biPAP as needed -continue steroid, duonebs, singulair, advair, ruflumilast -guafenasin for cough Status: Acute (2) Allergic rhinitis Status: Chronic (3) Anxiety Status: Chronic (4) Steroid-induced diabetes Status: Chronic - Assessment and Plan (Free Text) Plan: pt is for colonoscopy in am
[2017-09-21] MEDS: Albuterol-Ipratrop 3 mg / 0.5 (3 ml) UD INH SCH ×4 (01:26→21:06)
[2017-09-21] MEDS: Fluticasone-Salmeterol 500-50mcg Diskus INH SCH ×2 (07:39→21:05)
[2017-09-21] MEDS: Budesonide 0.5 mg/2 ml Inhal Susp UD IH SCH ×2 (07:39→21:06)
[2017-09-21] MEDS: (Novolog) Insulin Aspart, Recombinant 100 u/ml 10 ml vial SC SCH ×4 (07:59→22:03)
--- NOTE | 2017-09-21 08:38 | CP.PCM.PN ---
Subjective - Date & Time of Evaluation Date of Evaluation: 09/21/17 Time of Evaluation: 07:00 - Subjective Subjective: Surgery- Dr. Nieto Patient seen and examined at bedside this AM. On BiPAP last night. Chest pain improved. Good output via stoma. no new complains. deneis f/c n/v/d Objective - Vital Signs/Intake and Output Vital Signs (last 24 hours): Temp Pulse Resp BP Pulse Ox 97.4 F L 87 20 111/75 100 09/21/17 08:13 09/21/17 08:13 09/21/17 08:13 09/21/17 08:13 09/21/17 08:13 Intake and Output: 09/21/17 09/21/17 06:59 18:59 Intake Total 300 Balance 300 - Medications Medications: Current Medications Al Hydrox/Mg Hydrox/Simethicone (Maalox 30 Ml) 30 ml PO Q6H PRN PRN Reason: Indigestion / Heartburn Albuterol/Ipratropium (Duoneb 3 Mg/0.5 Mg (3 Ml) Ud) 3 ml INH RQ6 [facility] Last Admin: 09/21/17 07:39 Dose: 3 ml Alprazolam (Xanax) 0.5 mg PO Q12 [facility] Stop: 09/26/17 22:01 Last Admin: 09/20/17 22:19 Dose: 0.5 mg Budesonide (Pulmicort Respules) 0.5 mg IH RQ12 [facility] Last Admin: 09/21/17 07:39 Dose: 0.5 mg Enoxaparin Sodium (Lovenox) 40 mg SC DAILY [facility] Last Admin: 09/20/17 09:11 Dose: 40 mg Guaifenesin (Robitussin) 300 mg PO QID [facility] Last Admin: 09/20/17 22:22 Dose: 300 mg Insulin Aspart (Novolog) 0 unit SC ACHS [facility] PRN Reason: Protocol Last Admin: 09/21/17 07:59 Dose: Not Given Magnesium Hydroxide (Milk Of Magnesia) 30 ml PO DAILY PRN PRN Reason: Constipation Metformin HCl (Glucophage) 1,000 mg PO BID [facility] Last Admin: 09/20/17 17:43 Dose: 1,000 mg Methylprednisolone (Solu-Medrol) 40 mg IVP DAILY [facility] Montelukast Sodium (Singulair) 10 mg PO HS [facility] Last Admin: 09/20/17 22:19 Dose: 10 mg Pregabalin (Lyrica) 50 mg PO BID [facility] Last Admin: 09/20/17 17:43 Dose: 50 mg Roflumilast (Daliresp) 500 mcg PO DAILY [facility] Last Admin: 09/20/17 09:09 Dose: 500 mcg Fluticasone/Salmeterol (Advair Diskus 500/50) 1 puff INH RBID [facility] Last Admin: 09/21/17 07:39 Dose: 1 puff - Labs Labs: 09/19/17 13:38 09/19/17 13:38 - Constitutional Appears: Non-toxic, No Acute Distress - Eye Exam Eye Exam: EOMI. absent: Scleral icterus - ENT Exam ENT Exam: Mucous Membranes Moist - Respiratory Exam Respiratory Exam: NORMAL BREATHING PATTERN. absent: Accessory Muscle Use, Respiratory Distress Additional comments: on BiPAP overnight - Cardiovascular Exam Cardiovascular Exam: +S1, +S2. absent: Bradycardia, Tachycardia - GI/Abdominal Exam GI & Abdominal Exam: Soft. absent: Distended, Firm, Guarding, Rigid, Tenderness Additional comments: midline incision well healed stoma w/ good output - Extremities Exam Extremities Exam: Normal Inspection. absent: Calf Tenderness - Neurological Exam Neurological Exam: Alert, Awake, Oriented x3 - Psychiatric Exam Psychiatric exam: Normal Affect - Skin Skin Exam: Intact, Warm Assessment and Plan - Assessment and Plan (Free Text) Assessment: 67M admitted for SOB and COPD exacerbation. H/H is stable, on steroids Plan: - follow GI recs - plan for outpatient scope and surgery for medical optimization. - medical management per primary team and pulm - no plans for acute surgical intervention during this hospital visit - discussed w/ Dr. Nieto surgical attending Pedro Gatica PGY1
[2017-09-21] MEDS: guaiFENesin 100 mg/5 ml Syrup UD PO SCH ×4 (09:44→21:17)
[2017-09-21] MEDS: Enoxaparin 40 mg Syringe SC SCH (09:44)
[2017-09-21] MEDS: MethylPREDNISolone 40 mg Vial IVP SCH (09:45)
--- NOTE | 2017-09-21 11:39 | CP.PCM.PN ---
Subjective - Date & Time of Evaluation Date of Evaluation: 09/21/17 Time of Evaluation: 07:00 - Subjective Subjective: patient seen and examined Still complaining of shortness of breath Afebrile No chest pain Objective - Vital Signs/Intake and Output Vital Signs (last 24 hours): Temp Pulse Resp BP Pulse Ox 97.4 F L 87 20 111/75 100 09/21/17 08:13 09/21/17 08:13 09/21/17 08:13 09/21/17 08:13 09/21/17 08:13 Intake and Output: 09/21/17 09/21/17 06:59 18:59 Intake Total 300 Balance 300 - Medications Medications: Current Medications Al Hydrox/Mg Hydrox/Simethicone (Maalox 30 Ml) 30 ml PO Q6H PRN PRN Reason: Indigestion / Heartburn Albuterol/Ipratropium (Duoneb 3 Mg/0.5 Mg (3 Ml) Ud) 3 ml INH RQ6 [facility] Last Admin: 09/21/17 07:39 Dose: 3 ml Alprazolam (Xanax) 0.5 mg PO Q12 [facility] Stop: 09/26/17 22:01 Last Admin: 09/21/17 09:45 Dose: 0.5 mg Budesonide (Pulmicort Respules) 0.5 mg IH RQ12 [facility] Last Admin: 09/21/17 07:39 Dose: 0.5 mg Enoxaparin Sodium (Lovenox) 40 mg SC DAILY [facility] Last Admin: 09/21/17 09:44 Dose: 40 mg Guaifenesin (Robitussin) 300 mg PO QID [facility] Last Admin: 09/21/17 09:44 Dose: 300 mg Insulin Aspart (Novolog) 0 unit SC ACHS [facility] PRN Reason: Protocol Last Admin: 09/21/17 11:01 Dose: Not Given Magnesium Hydroxide (Milk Of Magnesia) 30 ml PO DAILY PRN PRN Reason: Constipation Metformin HCl (Glucophage) 1,000 mg PO BID [facility] Last Admin: 09/21/17 09:44 Dose: 1,000 mg Methylprednisolone (Solu-Medrol) 40 mg IVP DAILY [facility] Last Admin: 09/21/17 09:45 Dose: 40 mg Montelukast Sodium (Singulair) 10 mg PO HS [facility] Last Admin: 09/20/17 22:19 Dose: 10 mg Pregabalin (Lyrica) 50 mg PO BID [facility] Last Admin: 09/21/17 09:44 Dose: 50 mg Roflumilast (Daliresp) 500 mcg PO DAILY [facility] Last Admin: 09/21/17 09:44 Dose: 500 mcg Fluticasone/Salmeterol (Advair Diskus 500/50) 1 puff INH RBID [facility] Last Admin: 09/21/17 07:39 Dose: 1 puff - Labs Labs: 09/19/17 13:38 09/19/17 13:38 - Head Exam Head Exam: ATRAUMATIC, NORMOCEPHALIC - ENT Exam ENT Exam: Mucous Membranes Moist - Respiratory Exam Respiratory Exam: Decreased Breath Sounds - GI/Abdominal Exam GI & Abdominal Exam: Soft, Normal Bowel Sounds Assessment and Plan (1) Acute exacerbation of chronic obstructive airways disease Assessment & Plan: continue nebulizer treatment, IV steroids and BiPAP colonoscopy as outpatient Status: Acute (2) Chronic respiratory failure Status: Acute
--- NOTE | 2017-09-21 22:42 | CP.PCM.PN ---
Subjective - Date & Time of Evaluation Date of Evaluation: 09/21/17 Time of Evaluation: 18:00 - Subjective Subjective: patient seen and examined, improving, waiting for colonoscopy Still complaining of shortness of breath Afebrile No chest pain Objective - Vital Signs/Intake and Output Vital Signs (last 24 hours): Temp Pulse Resp BP Pulse Ox 98.1 F 96 H 20 110/54 L 96 09/21/17 16:00 09/21/17 21:08 09/21/17 16:00 09/21/17 16:00 09/21/17 16:00 Intake and Output: 09/21/17 09/22/17 18:59 06:59 Intake Total 780 Output Total 880 Balance -100 - Medications Medications: Current Medications Al Hydrox/Mg Hydrox/Simethicone (Maalox 30 Ml) 30 ml PO Q6H PRN PRN Reason: Indigestion / Heartburn Albuterol/Ipratropium (Duoneb 3 Mg/0.5 Mg (3 Ml) Ud) 3 ml INH RQ6 [facility] Last Admin: 09/21/17 21:06 Dose: 3 ml Alprazolam (Xanax) 0.5 mg PO Q12 [facility] Stop: 09/26/17 22:01 Last Admin: 09/21/17 21:17 Dose: 0.5 mg Budesonide (Pulmicort Respules) 0.5 mg IH RQ12 [facility] Last Admin: 09/21/17 21:06 Dose: 0.5 mg Enoxaparin Sodium (Lovenox) 40 mg SC DAILY [facility] Last Admin: 09/21/17 09:44 Dose: 40 mg Guaifenesin (Robitussin) 300 mg PO QID [facility] Last Admin: 09/21/17 21:17 Dose: 300 mg Insulin Aspart (Novolog) 0 unit SC ACHS [facility] PRN Reason: Protocol Last Admin: 09/21/17 22:03 Dose: Not Given Magnesium Hydroxide (Milk Of Magnesia) 30 ml PO DAILY PRN PRN Reason: Constipation Metformin HCl (Glucophage) 1,000 mg PO BID [facility] Last Admin: 09/21/17 17:20 Dose: 1,000 mg Methylprednisolone (Solu-Medrol) 40 mg IVP DAILY [facility] Last Admin: 09/21/17 09:45 Dose: 40 mg Montelukast Sodium (Singulair) 10 mg PO HS [facility] Last Admin: 09/21/17 21:17 Dose: 10 mg Pregabalin (Lyrica) 50 mg PO BID [facility] Last Admin: 09/21/17 17:21 Dose: 50 mg Roflumilast (Daliresp) 500 mcg PO DAILY [facility] Last Admin: 09/21/17 09:44 Dose: 500 mcg Fluticasone/Salmeterol (Advair Diskus 500/50) 1 puff INH RBID [facility] Last Admin: 09/21/17 21:05 Dose: 1 puff - Labs Labs: 09/19/17 13:38 09/19/17 13:38 - Constitutional Appears: No Acute Distress - Head Exam Head Exam: ATRAUMATIC, NORMAL INSPECTION, NORMOCEPHALIC - Eye Exam Eye Exam: EOMI, Normal appearance, PERRL Pupil Exam: NORMAL ACCOMODATION, PERRL - Respiratory Exam Respiratory Exam: Clear to Ausculation Bilateral, NORMAL BREATHING PATTERN - Cardiovascular Exam Cardiovascular Exam: REGULAR RHYTHM, +S1, +S2. absent: Murmur - GI/Abdominal Exam GI & Abdominal Exam: Soft, Normal Bowel Sounds. absent: Tenderness Assessment and Plan (1) COPD exacerbation Assessment & Plan: continue nebulizer treatment, IV steroids and BiPAP colonoscopy as outpatient Status: Acute (2) Allergic rhinitis Status: Chronic (3) Anxiety Status: Chronic (4) Steroid-induced diabetes Status: Chronic
[2017-09-22] MEDS: Albuterol-Ipratrop 3 mg / 0.5 (3 ml) UD INH SCH ×4 (01:57→19:49)
[2017-09-22] MEDS: Budesonide 0.5 mg/2 ml Inhal Susp UD IH SCH ×2 (07:30→19:50)
[2017-09-22] MEDS: (Novolog) Insulin Aspart, Recombinant 100 u/ml 10 ml vial SC SCH ×4 (07:43→21:54)
[2017-09-22] MEDS: Fluticasone-Salmeterol 500-50mcg Diskus INH SCH ×2 (08:15→19:49)
[2017-09-22] MEDS: Enoxaparin 40 mg Syringe SC SCH (09:11)
[2017-09-22] MEDS: guaiFENesin 100 mg/5 ml Syrup UD PO SCH ×4 (09:12→21:05)
[2017-09-22] MEDS: MethylPREDNISolone 40 mg Vial IVP SCH (09:12)
--- NOTE | 2017-09-22 12:26 | CARD ---
APPROVED REPORT EKG Measurement Heart [id number] <Conclusion> Sinus tachycardia with premature atrial complexes Rightward axis Borderline ECG
[2017-09-22] MEDS ORDERED: Pneumococcal 23-Valent Vaccine IM ONE (15:12)
[2017-09-22] MEDS ORDERED: Influenza Vaccine 60 mcg/0.5 mL SYR (4YR UP) IM ONE (15:12)
--- NOTE | 2017-09-22 18:55 | CP.PCM.PN ---
Subjective - Date & Time of Evaluation Date of Evaluation: 09/22/17 Time of Evaluation: 17:30 - Subjective Subjective: pt stll coughing, wheezing, less short of breath, on nebulizer treatment, colostomy site is clean Objective - Vital Signs/Intake and Output Vital Signs (last 24 hours): Temp Pulse Resp BP Pulse Ox 97.8 F 124 H 20 114/63 98 09/22/17 16:00 09/22/17 16:00 09/22/17 16:00 09/22/17 16:00 09/22/17 16:00 Intake and Output: 09/22/17 09/22/17 06:59 18:59 Intake Total 980 Output Total 1250 Balance -270 - Medications Medications: Current Medications Al Hydrox/Mg Hydrox/Simethicone (Maalox 30 Ml) 30 ml PO Q6H PRN PRN Reason: Indigestion / Heartburn Albuterol/Ipratropium (Duoneb 3 Mg/0.5 Mg (3 Ml) Ud) 3 ml INH RQ6 [facility] Last Admin: 09/22/17 13:25 Dose: 3 ml Alprazolam (Xanax) 0.5 mg PO Q12 [facility] Stop: 09/26/17 22:01 Last Admin: 09/22/17 09:12 Dose: 0.5 mg Budesonide (Pulmicort Respules) 0.5 mg IH RQ12 [facility] Last Admin: 09/22/17 07:30 Dose: 0.5 mg Enoxaparin Sodium (Lovenox) 40 mg SC DAILY [facility] Last Admin: 09/22/17 09:11 Dose: 40 mg Guaifenesin (Robitussin) 300 mg PO QID [facility] Last Admin: 09/22/17 17:30 Dose: 300 mg Insulin Aspart (Novolog) 0 unit SC ACHS [facility] PRN Reason: Protocol Last Admin: 09/22/17 17:28 Dose: 3 unit Magnesium Hydroxide (Milk Of Magnesia) 30 ml PO DAILY PRN PRN Reason: Constipation Metformin HCl (Glucophage) 1,000 mg PO BID [facility] Last Admin: 09/22/17 17:30 Dose: 1,000 mg Methylprednisolone (Solu-Medrol) 40 mg IVP DAILY [facility] Last Admin: 09/22/17 09:12 Dose: 40 mg Montelukast Sodium (Singulair) 10 mg PO HS [facility] Last Admin: 09/21/17 21:17 Dose: 10 mg Pregabalin (Lyrica) 50 mg PO BID [facility] Last Admin: 09/22/17 17:30 Dose: 50 mg Roflumilast (Daliresp) 500 mcg PO DAILY [facility] Last Admin: 09/22/17 09:13 Dose: 500 mcg Fluticasone/Salmeterol (Advair Diskus 500/50) 1 puff INH RBID [facility] Last Admin: 09/22/17 08:15 Dose: 1 puff - Labs Labs: 09/19/17 13:38 09/19/17 13:38 Assessment and Plan (1) COPD exacerbation Status: Acute (2) Allergic rhinitis Status: Chronic (3) Anxiety Status: Chronic (4) Steroid-induced diabetes Status: Chronic
[2017-09-23] MEDS: Albuterol-Ipratrop 3 mg / 0.5 (3 ml) UD INH SCH ×4 (01:32→20:47)
[2017-09-23] MEDS: Budesonide 0.5 mg/2 ml Inhal Susp UD IH SCH ×2 (07:25→20:47)
[2017-09-23] MEDS: Fluticasone-Salmeterol 500-50mcg Diskus INH SCH ×2 (07:50→20:47)
[2017-09-23] MEDS: (Novolog) Insulin Aspart, Recombinant 100 u/ml 10 ml vial SC SCH ×4 (08:00→22:04)
[2017-09-23] MEDS: guaiFENesin 100 mg/5 ml Syrup UD PO SCH ×4 (10:27→21:06)
[2017-09-23] MEDS: Enoxaparin 40 mg Syringe SC SCH (10:27)
[2017-09-23] MEDS: MethylPREDNISolone 40 mg Vial IVP SCH (10:28)
[2017-09-23 16:35] VITALS: RESP 20
[2017-09-23] MEDS ORDERED: Tramadol 25 mg PO STA (19:31)
[2017-09-23] MEDS ORDERED: oxyCODONE 5 mg Immediate Release Tab PO PRN (20:47)
--- NOTE | 2017-09-23 21:01 | CP.PCM.PN ---
Subjective - Date & Time of Evaluation Date of Evaluation: 09/23/17 Time of Evaluation: 18:00 - Subjective Subjective: Pt seen and examined, is less short of breath, less distress, is for GI evALUATION Objective - Vital Signs/Intake and Output Vital Signs (last 24 hours): Temp Pulse Resp BP Pulse Ox 98.2 F 126 H 20 99/66 L 95 09/23/17 16:00 09/23/17 16:00 09/23/17 16:00 09/23/17 16:00 09/23/17 16:00 Intake and Output: 09/23/17 09/24/17 18:59 06:59 Intake Total 780 Output Total 400 Balance 380 - Medications Medications: Current Medications Al Hydrox/Mg Hydrox/Simethicone (Maalox 30 Ml) 30 ml PO Q6H PRN PRN Reason: Indigestion / Heartburn Albuterol/Ipratropium (Duoneb 3 Mg/0.5 Mg (3 Ml) Ud) 3 ml INH RQ6 [facility] Last Admin: 09/23/17 20:47 Dose: 3 ml Alprazolam (Xanax) 0.5 mg PO Q12 [facility] Stop: 09/26/17 22:01 Last Admin: 09/23/17 10:28 Dose: 0.5 mg Budesonide (Pulmicort Respules) 0.5 mg IH RQ12 [facility] Last Admin: 09/23/17 20:47 Dose: 0.5 mg Enoxaparin Sodium (Lovenox) 40 mg SC DAILY [facility] Last Admin: 09/23/17 10:27 Dose: 40 mg Guaifenesin (Robitussin) 300 mg PO QID [facility] Last Admin: 09/23/17 17:21 Dose: 300 mg Insulin Aspart (Novolog) 0 unit SC ACHS [facility] PRN Reason: Protocol Last Admin: 09/23/17 16:23 Dose: 3 unit Magnesium Hydroxide (Milk Of Magnesia) 30 ml PO DAILY PRN PRN Reason: Constipation Metformin HCl (Glucophage) 1,000 mg PO BID [facility] Last Admin: 09/23/17 17:20 Dose: 1,000 mg Methylprednisolone (Solu-Medrol) 40 mg IVP DAILY [facility] Last Admin: 09/23/17 10:28 Dose: 40 mg Montelukast Sodium (Singulair) 10 mg PO HS [facility] Last Admin: 09/22/17 21:04 Dose: 10 mg Oxycodone HCl (Oxycodone Immediate Release Tab) 5 mg PO Q8 PRN PRN Reason: Pain, moderate (4-7) Pregabalin (Lyrica) 50 mg PO BID [facility] Last Admin: 09/23/17 17:20 Dose: 50 mg Roflumilast (Daliresp) 500 mcg PO DAILY [facility] Last Admin: 09/23/17 10:26 Dose: 500 mcg Fluticasone/Salmeterol (Advair Diskus 500/50) 1 puff INH RBID [facility] Last Admin: 09/23/17 20:47 Dose: 1 puff - Labs Labs: 09/19/17 13:38 09/19/17 13:38 - Constitutional Appears: No Acute Distress - Head Exam Head Exam: ATRAUMATIC, NORMAL INSPECTION, NORMOCEPHALIC - Respiratory Exam Respiratory Exam: Decreased Breath Sounds, Rales, Rhonchi - Cardiovascular Exam Cardiovascular Exam: Tachycardia, +S1, +S2 - GI/Abdominal Exam GI & Abdominal Exam: Soft, Normal Bowel Sounds. absent: Tenderness Assessment and Plan (1) COPD exacerbation Status: Acute (2) Allergic rhinitis Status: Chronic (3) Anxiety Status: Chronic (4) Steroid-induced diabetes Status: Chronic
[2017-09-24] MEDS: Albuterol-Ipratrop 3 mg / 0.5 (3 ml) UD INH SCH ×3 (01:20→19:23)
[2017-09-24] MEDS: (Novolog) Insulin Aspart, Recombinant 100 u/ml 10 ml vial SC SCH ×3 (07:51→17:20)
[2017-09-24] MEDS: Enoxaparin 40 mg Syringe SC SCH (09:33)
[2017-09-24] MEDS: MethylPREDNISolone 40 mg Vial IVP SCH (09:33)
[2017-09-24] MEDS: guaiFENesin 100 mg/5 ml Syrup UD PO SCH ×3 (09:33→18:03)
[2017-09-24 11:56] LABS: BASO # 0.1 K/uL (0.0-0.2); BASO % 0.7 % (0.0-2.0); EOS # 0.1 K/uL (0.0-0.7); EOS % 0.6 % (0.0-4.0); HEMOGLOBIN 11.4 g/dL (12.0-18.0); LYMPH % 12.2 % (20.0-40.0); MEAN CELL VOLUME 69.7 fL (80.0-94.0); MEAN CORPUSCULAR HEMOGLOBIN 22.4 pg (27.0-31.0); MEAN CORPUSCULAR HGB CONC 32.2 g/dL (33.0-37.0); MEAN PLATELET VOLUME 8.2 fL (7.2-11.7); MONO # 0.6 K/uL (0.0-0.8); MONO % 3.3 % (0.0-10.0); NEUT % 83.2 % (50.0-75.0); RBC 5.1 Mil/uL (4.40-5.90); RED CELL DISTRIBUTION WIDTH 25.7 % (11.5-14.5); WHITE BLOOD COUNT 16.8 K/uL (4.8-10.8)
[2017-09-24 12:34] LABS: BLOOD UREA NITROGEN 13 mg/dL (9-20); CALCIUM 9.8 mg/dl (8.6-10.4); GFR AFRICAN-AMERICAN > 60; GFR NON-AFRICAN AMERICAN > 60
[2017-09-24 16:36] VITALS: BP 104/69; PULSE 123; TEMP 98.3; O2SAT 97
--- NOTE | 2017-09-24 17:36 | CP.PCM.PN ---
Subjective - Date & Time of Evaluation Date of Evaluation: 09/24/17 Time of Evaluation: 17:36 - Subjective Subjective: Alert, orientedx3, has sob with exertion, no acute wheezing, NAD. Objective - Vital Signs/Intake and Output Vital Signs (last 24 hours): Temp Pulse Resp BP Pulse Ox 98.3 F 123 H 20 104/69 97 09/24/17 16:35 09/24/17 16:35 09/24/17 16:35 09/24/17 16:35 09/24/17 16:35 Intake and Output: 09/24/17 09/24/17 06:59 18:59 Intake Total 480 Balance 480 - Medications Medications: Current Medications Al Hydrox/Mg Hydrox/Simethicone (Maalox 30 Ml) 30 ml PO Q6H PRN PRN Reason: Indigestion / Heartburn Albuterol/Ipratropium (Duoneb 3 Mg/0.5 Mg (3 Ml) Ud) 3 ml INH RQ6 [facility] Last Admin: 09/24/17 13:08 Dose: 3 ml Alprazolam (Xanax) 0.5 mg PO Q12 [facility] Stop: 09/26/17 22:01 Last Admin: 09/24/17 09:33 Dose: 0.5 mg Budesonide (Pulmicort Respules) 0.5 mg IH RQ12 [facility] Last Admin: 09/23/17 20:47 Dose: 0.5 mg Enoxaparin Sodium (Lovenox) 40 mg SC DAILY [facility] Last Admin: 09/24/17 09:33 Dose: 40 mg Guaifenesin (Robitussin) 300 mg PO QID [facility] Last Admin: 09/24/17 14:37 Dose: 300 mg Insulin Aspart (Novolog) 0 unit SC ACHS [facility] PRN Reason: Protocol Last Admin: 09/24/17 17:20 Dose: 3 unit Magnesium Hydroxide (Milk Of Magnesia) 30 ml PO DAILY PRN PRN Reason: Constipation Metformin HCl (Glucophage) 1,000 mg PO BID [facility] Last Admin: 09/24/17 09:33 Dose: 1,000 mg Methylprednisolone (Solu-Medrol) 40 mg IVP DAILY [facility] Last Admin: 09/24/17 09:33 Dose: 40 mg Montelukast Sodium (Singulair) 10 mg PO HS [facility] Last Admin: 02/11/18 21:05 Dose: 10 mg Oxycodone HCl (Oxycodone Immediate Release Tab) 5 mg PO Q8 PRN PRN Reason: Pain, moderate (4-7) Pregabalin (Lyrica) 50 mg PO BID [facility] Last Admin: 09/24/17 09:33 Dose: 50 mg Roflumilast (Daliresp) 500 mcg PO DAILY [facility] Last Admin: 09/24/17 09:32 Dose: 500 mcg Fluticasone/Salmeterol (Advair Diskus 500/50) 1 puff INH RBID [facility] Last Admin: 09/23/17 20:47 Dose: 1 puff - Labs Labs: 09/24/17 11:46 09/24/17 11:46 Assessment and Plan - Assessment and Plan (Free Text) Assessment: Patient is seen and examined. Alert and orientedx3, has sob on exertion. on oxygen and BIPAP prn as needed, denies chest pain. No surgical or GI interventions planned at this point. Discussed with DR Garcia, plan to discharge to [facility] today on tapering dose of prednisone. Will continue with present plan of care.
--- NOTE | 2017-09-24 18:15 | CP.PCM.PN ---
Subjective - Date & Time of Evaluation Date of Evaluation: 09/24/17 Time of Evaluation: 11:00 - Subjective Subjective: Patient seen and examined at the bed side. Patient reports that he is using the biPAP machine at night. He states he still has dry coughs and some shortness of breath. He denies any chest pain, dizziness, nausea, or palpitations. He has been tolerating his medications. Assessment/Plan COPD exacerbation: -continue nebulizer treatment, steroids, and BiPAP machine as needed. Objective - Vital Signs/Intake and Output Vital Signs (last 24 hours): Temp Pulse Resp BP Pulse Ox 98.3 F 123 H 20 104/69 97 09/24/17 16:35 09/24/17 16:35 09/24/17 16:35 09/24/17 16:35 09/24/17 16:35 Intake and Output: 09/24/17 09/24/17 06:59 18:59 Intake Total 480 Balance 480 - Medications Medications: Current Medications Al Hydrox/Mg Hydrox/Simethicone (Maalox 30 Ml) 30 ml PO Q6H PRN PRN Reason: Indigestion / Heartburn Albuterol/Ipratropium (Duoneb 3 Mg/0.5 Mg (3 Ml) Ud) 3 ml INH RQ6 [facility] Last Admin: 09/24/17 13:08 Dose: 3 ml Alprazolam (Xanax) 0.5 mg PO Q12 [facility] Stop: 09/26/17 22:01 Last Admin: 09/24/17 09:33 Dose: 0.5 mg Budesonide (Pulmicort Respules) 0.5 mg IH RQ12 [facility] Last Admin: 09/23/17 20:47 Dose: 0.5 mg Enoxaparin Sodium (Lovenox) 40 mg SC DAILY [facility] Last Admin: 09/24/17 09:33 Dose: 40 mg Guaifenesin (Robitussin) 300 mg PO QID [facility] Last Admin: 09/24/17 18:03 Dose: 300 mg Insulin Aspart (Novolog) 0 unit SC ACHS [facility] PRN Reason: Protocol Last Admin: 09/24/17 17:20 Dose: 3 unit Magnesium Hydroxide (Milk Of Magnesia) 30 ml PO DAILY PRN PRN Reason: Constipation Metformin HCl (Glucophage) 1,000 mg PO BID [facility] Last Admin: 09/24/17 18:02 Dose: 1,000 mg Methylprednisolone (Solu-Medrol) 40 mg IVP DAILY [facility] Last Admin: 09/24/17 09:33 Dose: 40 mg Montelukast Sodium (Singulair) 10 mg PO HS [facility] Last Admin: 09/23/17 21:05 Dose: 10 mg Oxycodone HCl (Oxycodone Immediate Release Tab) 5 mg PO Q8 PRN PRN Reason: Pain, moderate (4-7) Pregabalin (Lyrica) 50 mg PO BID [facility] Last Admin: 09/24/17 18:03 Dose: 50 mg Roflumilast (Daliresp) 500 mcg PO DAILY [facility] Last Admin: 09/24/17 09:32 Dose: 500 mcg Fluticasone/Salmeterol (Advair Diskus 500/50) 1 puff INH RBID [facility] Last Admin: 09/23/17 20:47 Dose: 1 puff - Labs Labs: 09/24/17 11:46 09/24/17 11:46 Assessment and Plan (1) Acute exacerbation of chronic obstructive airways disease Status: Acute (2) Chronic respiratory failure Status: Acute
[2017-09-24] MEDS: Fluticasone-Salmeterol 500-50mcg Diskus INH SCH (19:23)
[2017-09-24] MEDS: Budesonide 0.5 mg/2 ml Inhal Susp UD IH SCH (19:23)
--- NOTE | 2017-09-24 22:50 | CP.PCM.DIS ---
Provider - Provider Date of Admission: 09/21/17 14:52 Attending physician: Hal Garcia MD Time Spent in preparation of Discharge (in minutes): 56 Diagnosis - Discharge Diagnosis (1) COPD exacerbation Status: Acute Priority: Medium (2) Allergic rhinitis Status: Chronic Priority: Medium (3) Anxiety Status: Chronic (4) Steroid-induced diabetes Status: Chronic Hospital Course - Lab Results Lab Results: Most Recent Lab Values WBC 16.8 K/uL (4.8-10.8) H D 09/24/17 11:46 RBC 5.10 Mil/uL (4.40-5.90) 09/24/17 11:46 Hgb 11.4 g/dL (12.0-18.0) L 09/24/17 11:46 Hct 35.5 % (35.0-51.0) 09/24/17 11:46 MCV 69.7 fL (80.0-94.0) L 09/24/17 11:46 MCH 22.4 pg (27.0-31.0) L 09/24/17 11:46 MCHC 32.2 g/dL (33.0-37.0) L 09/24/17 11:46 RDW 25.7 % (11.5-14.5) H 09/24/17 11:46 Plt Count 424 K/uL (130-400) H 09/24/17 11:46 MPV 8.2 fL (7.2-11.7) 09/24/17 11:46 Neut % (Auto) 83.2 % (50.0-75.0) H 09/24/17 11:46 Lymph % (Auto) 12.2 % (20.0-40.0) L 09/24/17 11:46 [place] % (Auto) 3.3 % (0.0-10.0) 09/24/17 11:46 Eos % (Auto) 0.6 % (0.0-4.0) 09/24/17 11:46 Baso % (Auto) 0.7 % (0.0-2.0) 09/24/17 11:46 Neut # (Auto) 14.0 K/uL (1.8-7.0) H 09/24/17 11:46 Lymph # (Auto) 2.0 K/uL (1.0-4.3) 09/24/17 11:46 [place] # (Auto) 0.6 K/uL (0.0-0.8) 09/24/17 11:46 Eos # (Auto) 0.1 K/uL (0.0-0.7) 09/24/17 11:46 Baso # (Auto) 0.1 K/uL (0.0-0.2) 09/24/17 11:46 Differential Comment 09/24/17 11:46 Sodium 134 mmol/L (132-148) 09/24/17 11:46 Potassium 3.8 mmol/L (3.6-5.2) 09/24/17 11:46 Chloride 94 mmol/L (98-107) L 09/24/17 11:46 Carbon Dioxide 30 mmol/L (22-30) 09/24/17 11:46 Anion Gap 14 (10-20) 09/24/17 11:46 BUN 13 mg/dL (9-20) 09/24/17 11:46 Creatinine 0.6 mg/dL (0.8-1.5) L 09/24/17 11:46 Est GFR ( Amer) > 60 09/24/17 11:46 Est GFR (Non-Af Amer) > 60 09/24/17 11:46 POC Glucose (mg/dL) 102 mg/dL (65-110) 09/24/17 21:10 Random Glucose 143 mg/dL (75-110) H 09/24/17 11:46 Calcium 9.8 mg/dl (8.6-10.4) 09/24/17 11:46 Magnesium 1.6 mg/dL (1.6-2.3) 09/19/17 13:38 Total Bilirubin 0.3 mg/dL (0.2-1.3) 09/19/17 13:38 AST 22 U/L (17-59) 09/19/17 13:38 ALT 38 U/L (21-72) 09/19/17 13:38 Alkaline Phosphatase 161 U/L (38-126) H D 09/19/17 13:38 Total Protein 7.2 g/dL (6.3-8.3) 09/19/17 13:38 Albumin 3.8 g/dL (3.5-5.0) 09/19/17 13:38 Globulin 3.4 gm/dL (2.2-3.9) 09/19/17 13:38 Albumin/Globulin Ratio 1.1 (1.0-2.1) 09/19/17 13:38 - Hospital Course Hospital Course: Patient seen and examined at the bed side. PT IS FOR DISCHARGE TODAY, WILL HAVE OUT PATEINT COLONSCOPY Patient reports that he is using the biPAP machine at night. He states he still has dry coughs and some shortness of breath. He denies any chest pain, dizziness , nausea, or palpitations. He has been tolerating his medications. Assessment/Plan COPD exacerbation: -continue nebulizer treatment, steroids, and BiPAP machine as needed at home out pateint follow up with PMD in 1 week Discharge Exam - Head Exam Head Exam: ATRAUMATIC, NORMAL INSPECTION, NORMOCEPHALIC - Eye Exam Eye Exam: EOMI, Normal appearance, PERRL Pupil Exam: NORMAL ACCOMODATION, PERRL - Respiratory Exam Respiratory Exam: Decreased Breath Sounds, Rhonchi, Wheezes - Cardiovascular Exam Cardiovascular Exam: Tachycardia, +S1, +S2 - GI/Abdominal Exam GI & Abdominal Exam: Normal Bowel Sounds Discharge Plan - Discharge Medications Prescriptions: predniSONE [Prednisone] 10 mg PO DAILY #10 tab - Follow Up Plan Condition: STABLE Disposition: REHAB FACILITY/REHAB UNIT Instructions: Prednisone (By mouth), Heart Failure (DC), COPD (Chronic Obstructive Pulmonary Disease) (DC) Referrals: Hal Garcia MD [Staff Provider] -
== END 2017-09-24 21:20 | DRG 191 ==
LOC: C.ER 11:57 → C.9E 15:27 → C.3T 09-20 01:27 → OBSVTOIN 09-21 14:52
PROVIDERS: ADMIT Internal Medicine; ATTEND Internal Medicine
DX: J44.1 Chronic obstructive pulmonary disease with (acute) exacerbation (principal); J96.10 Chronic respiratory failure, unspecified whether with hypoxia or hypercapnia; E11.22 Type 2 diabetes mellitus with diabetic chronic kidney disease; I50.9 Heart failure, unspecified; I13.0 Hypertensive heart and chronic kidney disease with heart failure and stage 1 through stage 4 chronic kidney disease, or unspecified chronic kidney disease; F41.9 Anxiety disorder, unspecified; E78.00 Pure hypercholesterolemia, unspecified; G47.33 Obstructive sleep apnea (adult) (pediatric); N18.9 Chronic kidney disease, unspecified; T38.0X5A Adverse effect of glucocorticoids and synthetic analogues, initial encounter; Z85.038 Personal history of other malignant neoplasm of large intestine; Z87.01 Personal history of pneumonia (recurrent); Z87.891 Personal history of nicotine dependence; Z93.2 Ileostomy status; Z93.3 Colostomy status; Z99.81 Dependence on supplemental oxygen; Z79.84 Long term (current) use of oral hypoglycemic drugs

== ENCOUNTER 2017-10-05 10:42 | Inpatient (IN) | payer MEDICARE, BC ==
[2017-10-05 11:02] VITALS: BMI 22.8
[2017-10-05] MEDS ORDERED: Albuterol-Ipratrop 3 mg / 0.5 (3 ml) UD INH STA ×2 (11:03→11:04)
--- NOTE | 2017-10-05 11:09 | C.PDOC ---
History Of Present Illness 67 y/o M c PMHx COPD p/w shortness of breath. Patient alerted NH staff to call 911 due to dyspnea that began 18 hours ago. States similar to previous COPD exacerbations. Denies fever, chest pain, nausea, leg swelling. EMS found patient tripod-ing, decreased breath sounds. En route, patient received 2 duonebs, CPAP, solumedrol 125, 2g Magnesium. Full HPI/ROS unobtainable due to acuity of condition. Chief Complaint (Nursing): Respiratory Distress Past Medical History Vital Signs: Last Vital Signs Temp 98.5 F 10/05/17 12:22 Pulse 127 H 10/05/17 12:22 Resp 18 10/05/17 12:22 BP 106/63 10/05/17 12:22 Pulse Ox 99 10/05/17 12:22 - Medical History PMH: Anemia, Anxiety, Arthritis (Gout), Asthma, Bronchitis, Cardia Arrhythmia ( SVT), CHF, COPD (Emphysema), Diabetes, Emphysema, HTN, Hypercholesterolemia, Kidney Stones, Pneumonia, Chronic Kidney Disease, Sleep Apnea Denies: Gastritis - [facility] Procedures ASSISTANCE WITH RESPIRATORY VENTILATION, 24-96 HRS, CPAP (08/23/17) ASSISTANCE WITH RESPIRATORY VENTILATION, <24 HRS, CPAP (07/08/16) ASSISTANCE WITH RESPIRATORY VENTILATION, >96 HRS, CPAP (05/08/17) CONTINUOUS INVASIVE MECHANICAL VENTILATION <96 CONSEC HRS (11/29/14) DILATION OF RIGHT URETER WITH INTRALUMINAL DEVICE, ENDO (03/20/17) EXCISION OF SIGMOID COLON, ENDO, DIAGN (03/20/17) EXCISION OF STOMACH, ENDO, DIAGN (03/20/17) EXCISION OF TRANSVERSE COLON, ENDO, DIAGN (03/20/17) INFLUENZA VACCINATION (06/02/14) INSERT ENDOTRACHEAL TUBE (11/29/14) LARYGNOSCOPY AND OTH TRACHEOSCOPY (04/18/15) MEASURE OF CARDIAC SAMPL & PRESSURE, L HEART, PERC APPROACH (12/01/15) NON-INVASIVE MECHANICAL VENTILATION (04/18/15) RESECTION OF SIGMOID COLON, OPEN APPROACH (03/20/17) RESPIRATORY VENTILATION, GREATER THAN 96 CONSECUTIVE HOURS (03/20/17) Family History: States: Unknown Family Hx - Social History Hx Tobacco Use: Yes (8 years ppd smoker. quit 1.5 years ago) Hx Alcohol Use: No Hx Substance Use: No - Immunization History Hx Tetanus Toxoid Vaccination: Yes Hx Influenza Vaccination: Yes Hx Pneumococcal Vaccination: Yes (12/01/2014) Review Of Systems Except As Marked, All Systems Reviewed And Found Negative. Constitutional: Negative for: Fever Cardiovascular: Negative for: Chest Pain Physical Exam - Physical Exam Additional Physical Exam Comments: Gen: Respiratory distress Head: NC Eyes: PERRL ENT: On CPAP Neck: No JVD Chest: No deformity CV: Tachycardic Lungs: Diffuse wheezing, tachypneic, decreased breath sounds Abd: Soft Skin: No rash Extremities: No leg swelling Neuro: Alert, follows commands. ED Course And Treatment - Laboratory Results Result Diagrams: 10/05/17 11:09 10/05/17 11:09 O2 Sat by Pulse Oximetry: 100 Critical Care Time - Critical Care Note Total Time (in mins): 45 Comments: Seen immediately upon arrival due to acuity of condition. Required frequent reassessments to monitor need for intubation. Documented critical care: time excludes all time spent performing seperately billable procedures. Medical Decision Making Medical Decision Making: BiPap initiated, duonebs continued, will check ABG. EKG Sinus tach 138 bpm, no ST elevations. CXR no consolidation. ABG shows hypercarbia, pCO2 49. Will continue BiPap, vitals improved. Dr. Garcia accepts patient to his service. Disposition Discussed With : Hal Garcia Doctor Will See Patient In The: ED - Disposition Disposition: HOSPITALIZED Disposition Time: 12:05 Condition: STABLE - Clinical Impression Clinical Impression: COPD exacerbation
[2017-10-05 11:14] LABS: BASO # 0.2 K/uL (0.0-0.2); BASO % 1.2 % (0.0-2.0); EOS % 7.5 % (0.0-4.0); HEMOGLOBIN 11.5 g/dL (12.0-18.0); LYMPH # 3.8 K/uL (1.0-4.3); LYMPH % 27.9 % (20.0-40.0); MEAN CELL VOLUME 71.2 fL (80.0-94.0); MEAN CORPUSCULAR HGB CONC 32.3 g/dL (33.0-37.0); MEAN PLATELET VOLUME 8.2 fL (7.2-11.7); MONO % 7.1 % (0.0-10.0); NEUT # 7.8 K/uL (1.8-7.0); NEUT % 56.3 % (50.0-75.0); NRBC % 0.1 % (0.0-2.0); RBC 5.01 Mil/uL (4.40-5.90); RED CELL DISTRIBUTION WIDTH 26.6 % (11.5-14.5); WHITE BLOOD COUNT 13.8 K/uL (4.8-10.8)
[2017-10-05 11:23] LABS: PROTHROMBIN TIME 11.2 SECONDS (9.7-12.2)
[2017-10-05 11:31] LABS: ALB/GLOB RATIO 1.3 (1.0-2.1); ALT/SGPT 59 U/L (21-72); AST/SGOT 44 U/L (17-59); BLOOD UREA NITROGEN 3 mg/dL (9-20); CALCIUM 9.4 mg/dl (8.6-10.4); GFR AFRICAN-AMERICAN > 60; GFR NON-AFRICAN AMERICAN > 60
[2017-10-05 11:49] LABS: ARTERIAL BLOOD GAS HCO3 27.3 mmol/L (21-28); ARTERIAL BLOOD GAS HEMOGLOBIN 11.4 g/dL (11.7-17.4); ARTERIAL BLOOD GAS O2 SAT 100.2 % (95-98); ARTERIAL BLOOD GAS PCO2 49 mm/Hg (35-45); ARTERIAL BLOOD GAS PH 7.38 (7.35-7.45); ARTERIAL BLOOD GAS PO2 210 mm/Hg (80-100); ARTERIAL BLOOD GAS TCO2 30.5 mmol/L (22-28)
--- NOTE | 2017-10-05 13:18 | RAD ---
HISTORY: dyspnea COMPARISON: Chest x-ray performed 09/19/17 TECHNIQUE: Chest, one view. FINDINGS: LUNGS: Interval development of ovoid hazy opacity in the lateral right mid lung zone. 7 mm nodular density noted within the left upper lobe at the level of the left 6th posterior rib. Please note that chest x-ray has limited sensitivity for the detection of pulmonary masses. PLEURA: No significant pleural effusion identified. No definite pneumothorax . CARDIOVASCULAR: Heart size appears within normal limits. Atherosclerotic calcifications of the aorta. OSSEOUS STRUCTURES: Degenerative changes of the spine. VISUALIZED UPPER ABDOMEN: Unremarkable. OTHER FINDINGS: None. IMPRESSION: Interval development of ovoid hazy opacity in the lateral right mid lung zone. Correlate clinically for pneumonia. Recommend follow-up to complete resolution. Additionally 7 mm nodular density is noted at the level the left 6th posterior rib. CT of the chest may be considered in follow-up for further evaluation if indicated.
[2017-10-05] MEDS ORDERED: Aluminum Hydroxide/Magnesium Hydroxide Susp (30 mL) PO PRN (14:24)
[2017-10-05] MEDS ORDERED: Magnesium Hydroxide Susp 30 ml UD PO PRN (15:35)
[2017-10-05] MEDS ORDERED: Albuterol-Ipratrop 3 mg / 0.5 (3 ml) UD ONE (15:41)
[2017-10-05] MEDS: Albuterol-Ipratrop 3 mg / 0.5 (3 ml) UD INH SCH ×2 (15:53→20:13)
[2017-10-05] MEDS ORDERED: Albuterol-Ipratrop 20 mcg/actuation (4 g) INH SCH ×2 (16:00)
[2017-10-05] MEDS ORDERED: (Novolin R) Insulin Human Regular 100 units/ml vial ONE (18:09)
[2017-10-05] MEDS: (Novolog) Insulin Aspart, Recombinant 100 u/ml 10 ml vial SC SCH ×2 (18:10→21:24)
[2017-10-05] MEDS: (Novolin R) Insulin Human Regular 100 units/ml vial SC SCH ×2 (18:10→21:23)
[2017-10-05] MEDS ORDERED: (Novolog) Insulin Aspart, Recombinant 100 u/ml 10 ml vial ONE (18:11)
[2017-10-05] MEDS: Budesonide 0.5 mg/2 ml Inhal Susp UD IH SCH (20:13)
--- NOTE | 2017-10-05 23:37 | CP.PCM.HP ---
History of Present Illness - History of Present Illness History of Present Illness: Chief Complaint: cough , congestion, sob, Respiratory Distress x 6 hrs History Of Present Illness 67 y/o M well nown to me with PMHx of long standing COPD p/w shortness of breath. Patient alerted NH staff to call 911 due to dyspnea that began 18 hours ago. States similar to previous COPD exacerbations. Denies fever, chest pain, nausea, leg swelling. EMS found patient tripod-ing, decreased breath sounds. En route, patient received 2 duonebs, CPAP, solumedrol 125, 2g Magnesium. Full HPI/ROS unobtainable due to acuity of condition. Present on Admission - Present on Admission Any Indicators Present on Admission: Yes Review of Systems - Review of Systems Systems not reviewed;Unavailable: Acuity of Condition - Constitutional Constitutional: Fatigue, Lethargy, Malaise, Weakness - EENT Eyes: absent: As Per HPI, Blind Spots, Blurred Vision, Change in Vision, Decreased Night Vision, Diplopia, Discharge, Dry Eye, Exophthalmos, Floaters, Irritation, Itchy Eyes, Loss of Peripheral Vision, Pain, Photophobia, Requires Corrective Lenses, Sees Flashes, Spots in Vision, Tunnel Vision, Other Visual Disturbances, Loss of Vision, Other Nose/Mouth/Throat: Nasal Congestion - Cardiovascular Cardiovascular: Dyspnea, Dyspnea on Exertion - Respiratory Respiratory: Cough, Dyspnea, Dyspnea on Exertion, Chest Congestion, Pain with Coughing - Gastrointestinal Gastrointestinal: absent: As Per HPI, Abdominal Pain, Belching, Bloating, Change in Bowel Habits, Change in Stool Character, Coffee Ground Emesis, Constipation, Cramping, Diarrhea, Dyspepsia, Dysphagia, Early Satiety, Excessive Flatus, Fecal Incontinence, Heartburn, Hematemesis, Hematochezia, Loose Stools, Melena, Nausea, Odynophagia, Temesmus, Vomiting, Other Past Patient History - Infectious Disease Hx of Infectious Diseases: None - Past Medical History & Family History Past Medical History?: Yes - Past Social History Smoking Status: Former Smoker - CARDIAC Hx Cardia Arrhythmia: Yes (SVT) Hx Congestive Heart Failure: Yes Hx Hypercholesterolemia: Yes Hx Hypertension: Yes - PULMONARY Hx Asthma: Yes Hx Bronchitis: Yes Hx Chronic Obstructive Pulmonary Disease (COPD): Yes (Emphysema) Hx Emphysema: Yes Hx Pneumonia: Yes Hx Sleep Apnea: Yes - NEUROLOGICAL HX Cerebrovascular Accident: Yes - HEENT Hx HEENT Problems: Yes Hx Cataracts: Yes (left cataract removed, r cataract) Other/Comment: wears eyeglasses for distance - RENAL Hx Chronic Kidney Disease: Yes Hx Kidney Stones: Yes - ENDOCRINE/METABOLIC Hx Diabetes Mellitus Type 2: Yes - HEMATOLOGICAL/ONCOLOGICAL Hx Anemia: Yes - INTEGUMENTARY Hx Dermatological Problems: No - MUSCULOSKELETAL/RHEUMATOLOGICAL Hx Arthritis: Yes (Gout) - GASTROINTESTINAL Hx Gastritis: No - PSYCHIATRIC Hx Anxiety: Yes Hx Substance Use: No - SURGICAL HISTORY Hx Surgeries: Yes Hx Cardiac Catheterization: Yes (11/2015) Other/Comment: colon resection with right ileostomy - ANESTHESIA Hx Anesthesia: Yes Hx Anesthesia Reactions: No Hx Malignant Hyperthermia: No Meds Allergies/Adverse Reactions: Allergies Allergy/AdvReac Type Severity Reaction Status Date / Time acetaminophen [From Tylenol] Allergy RASH Verified 09/19/17 12:19 FISH Allergy SWELLING Verified 09/19/17 12:19 shrimp Allergy SHORTNESS Verified 09/19/17 12:19 OF BREATH IV dye Allergy Severe ANAPHYLAXIS Uncoded 09/19/17 12:19 Physical Exam - Constitutional Appears: No Acute Distress - Head Exam Head Exam: ATRAUMATIC, NORMAL INSPECTION, NORMOCEPHALIC - Eye Exam Eye Exam: EOMI, Normal appearance, PERRL Pupil Exam: NORMAL ACCOMODATION, PERRL - Respiratory Exam Respiratory Exam: Rales - Cardiovascular Exam Cardiovascular Exam: REGULAR RHYTHM, +S1, +S2 - GI/Abdominal Exam GI & Abdominal Exam: Normal Bowel Sounds, Soft. absent: Tenderness - Neurological Exam Neurological exam: Alert, Oriented x3 - Psychiatric Exam Psychiatric exam: Anxious Results - Vital Signs Recent Vital Signs: Last Vital Signs Temp 98.9 F 10/05/17 20:30 Pulse 116 H 10/05/17 20:30 Resp 22 10/05/17 20:30 BP 118/78 10/05/17 20:30 Pulse Ox 100 10/05/17 20:30 - Labs Result Diagrams: 10/05/17 11:09 10/05/17 11:09 Labs: Laboratory Results - last 24 hr 10/05/17 10/05/17 10/05/17 11:09 11:09 11:09 WBC 13.8 H RBC 5.01 Hgb 11.5 L Hct 35.7 MCV 71.2 L MCH 23.0 L MCHC 32.3 L RDW 26.6 H Plt Count 282 D MPV 8.2 Neut % (Auto) 56.3 Lymph % (Auto) 27.9 Cuming % (Auto) 7.1 Eos % (Auto) 7.5 H Baso % (Auto) 1.2 Neut # (Auto) 7.8 H Lymph # (Auto) 3.8 Cuming # (Auto) 1.0 H Eos # (Auto) 1.0 H Baso # (Auto) 0.2 PT 11.2 INR 1.0 APTT 32 Puncture Site pCO2 pO2 HCO3 ABG pH ABG Total CO2 ABG O2 Saturation ABG Base Excess ABG Hemoglobin ABG Carboxyhemoglobin POC ABG HHb (Measured) ABG Methemoglobin Jesus Test A-a O2 Difference Respiratory Index Hgb O2 Saturation Mechanical Rate FiO2 Inspiratory BiPAP Expiratory BiPAP Sodium 137 Potassium 4.0 Chloride 96 L Carbon Dioxide 32 H Anion Gap 13 BUN 3 L Creatinine 0.6 L Est GFR ( Amer) > 60 Est GFR (Non-Af Amer) > 60 POC Glucose (mg/dL) Random Glucose 170 H Calcium 9.4 Total Bilirubin 0.4 AST 44 ALT 59 Alkaline Phosphatase 153 H Troponin I < 0.0120 Total Protein 7.2 Albumin 4.0 Globulin 3.2 Albumin/Globulin Ratio 1.3 Influenza Typ A,B (EIA) 10/05/17 10/05/17 10/05/17 11:12 11:45 18:02 WBC RBC Hgb Hct MCV MCH MCHC RDW Plt Count MPV Neut % (Auto) Lymph % (Auto) Cuming % (Auto) Eos % (Auto) Baso % (Auto) Neut # (Auto) Lymph # (Auto) Cuming # (Auto) Eos # (Auto) Baso # (Auto) PT INR APTT Puncture Site Lb pCO2 49 H pO2 210 H HCO3 27.3 ABG pH 7.38 ABG Total CO2 30.5 H ABG O2 Saturation 100.2 H ABG Base Excess 3.1 H ABG Hemoglobin 11.4 L ABG Carboxyhemoglobin 2.2 H POC ABG HHb (Measured) -0.2 L ABG Methemoglobin 1.4 Jesus Test Na A-a O2 Difference 85.0 Respiratory Index 0.4 Hgb O2 Saturation 96.6 Mechanical Rate 12 FiO2 50.0 Inspiratory BiPAP 12 Expiratory BiPAP 6 Sodium Potassium Chloride Carbon Dioxide Anion Gap BUN Creatinine Est GFR ( Amer) Est GFR (Non-Af Amer) POC Glucose (mg/dL) 214 H Random Glucose Calcium Total Bilirubin AST ALT Alkaline Phosphatase Troponin I Total Protein Albumin Globulin Albumin/Globulin Ratio Influenza Typ A,B (EIA) Negative for flu a/b 10/05/17 21:00 WBC RBC Hgb Hct MCV MCH MCHC RDW Plt Count MPV Neut % (Auto) Lymph % (Auto) Cuming % (Auto) Eos % (Auto) Baso % (Auto) Neut # (Auto) Lymph # (Auto) Cuming # (Auto) Eos # (Auto) Baso # (Auto) PT INR APTT Puncture Site pCO2 pO2 HCO3 ABG pH ABG Total CO2 ABG O2 Saturation ABG Base Excess ABG Hemoglobin ABG Carboxyhemoglobin POC ABG HHb (Measured) ABG Methemoglobin Jesus Test A-a O2 Difference Respiratory Index Hgb O2 Saturation Mechanical Rate FiO2 Inspiratory BiPAP Expiratory BiPAP Sodium Potassium Chloride Carbon Dioxide Anion Gap BUN Creatinine Est GFR ( Amer) Est GFR (Non-Af Amer) POC Glucose (mg/dL) 160 H Random Glucose Calcium Total Bilirubin AST ALT Alkaline Phosphatase Troponin I Total Protein Albumin Globulin Albumin/Globulin Ratio Influenza Typ A,B (EIA) Assessment & Plan (1) COPD exacerbation Status: Acute Priority: Medium (2) Allergic rhinitis Status: Chronic Priority: Medium (3) Anxiety Status: Chronic (4) CHF (congestive heart failure) Status: Chronic (5) Steroid-induced diabetes Status: Chronic
[2017-10-06] MEDS: Albuterol-Ipratrop 3 mg / 0.5 (3 ml) UD INH SCH ×4 (02:50→20:24)
[2017-10-06] MEDS: (Novolog) Insulin Aspart, Recombinant 100 u/ml 10 ml vial SC SCH ×3 (07:57→21:56)
[2017-10-06] MEDS: (Novolin R) Insulin Human Regular 100 units/ml vial SC SCH ×3 (07:58→21:56)
[2017-10-06] MEDS: Enoxaparin 40 mg Syringe SC SCH (09:08)
[2017-10-06] MEDS: Pantoprazole 40 mg EC Tab PO SCH (09:09)
[2017-10-06] MEDS: Fluticasone-Salmeterol 250-50mcg Diskus INH SCH ×2 (09:36→20:23)
[2017-10-06] MEDS: Budesonide 0.5 mg/2 ml Inhal Susp UD IH SCH ×2 (09:37→20:24)
--- NOTE | 2017-10-06 14:13 | CP.PCM.CON ---
History of Present Illness - History of Present Illness History of Present Illness: Reason for consultation: shortness of breath 67-year-old male with severe COPD, respiratory failure on home oxygen, presented to emergency room with severe shortness of breath. Denies cough, denies fever chills, denies chest pain. 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 Awaiting for reversal of ileostomy Review of Systems - Review of Systems All systems: reviewed and no additional remarkable complaints except (Shortness of breath) Past Patient History - Infectious Disease Hx of Infectious Diseases: None - Past Medical History & Family History Past Medical History?: Yes - Past Social History Smoking Status: Former Smoker - CARDIAC Hx Cardia Arrhythmia: Yes (SVT) Hx Congestive Heart Failure: Yes Hx Hypercholesterolemia: Yes Hx Hypertension: Yes - PULMONARY Hx Asthma: Yes Hx Bronchitis: Yes Hx Chronic Obstructive Pulmonary Disease (COPD): Yes (Emphysema) Hx Emphysema: Yes Hx Pneumonia: Yes Hx Sleep Apnea: Yes - NEUROLOGICAL HX Cerebrovascular Accident: Yes - HEENT Hx HEENT Problems: Yes Hx Cataracts: Yes (left cataract removed, r cataract) Other/Comment: wears eyeglasses for distance - RENAL Hx Chronic Kidney Disease: Yes Hx Kidney Stones: Yes - ENDOCRINE/METABOLIC Hx Diabetes Mellitus Type 2: Yes - HEMATOLOGICAL/ONCOLOGICAL Hx Anemia: Yes - INTEGUMENTARY Hx Dermatological Problems: No - MUSCULOSKELETAL/RHEUMATOLOGICAL Hx Arthritis: Yes (Gout) - GASTROINTESTINAL Hx Gastritis: No - PSYCHIATRIC Hx Anxiety: Yes Hx Substance Use: No - SURGICAL HISTORY Hx Surgeries: Yes Hx Cardiac Catheterization: Yes (11/2015) Other/Comment: colon resection with right ileostomy - ANESTHESIA Hx Anesthesia: Yes Hx Anesthesia Reactions: No Hx Malignant Hyperthermia: No Meds Allergies/Adverse Reactions: Allergies Allergy/AdvReac Type Severity Reaction Status Date / Time acetaminophen [From Tylenol] Allergy RASH Verified 09/19/17 12:19 FISH Allergy SWELLING Verified 09/19/17 12:19 shrimp Allergy SHORTNESS Verified 09/19/17 12:19 OF BREATH IV dye Allergy Severe ANAPHYLAXIS Uncoded 09/19/17 12:19 - Medications Medications: Current Medications Al Hydrox/Mg Hydrox/Simethicone (Maalox 30 Ml) 30 ml PO Q6H PRN PRN Reason: Indigestion / Heartburn Last Admin: 10/06/17 00:53 Dose: 30 ml Albuterol/Ipratropium (Duoneb 3 Mg/0.5 Mg (3 Ml) Ud) 3 ml INH RQ6 [facility] Last Admin: 10/06/17 13:33 Dose: 3 ml Alprazolam (Xanax) 0.5 mg PO Q12 [facility] Stop: 10/12/17 22:01 Last Admin: 10/06/17 09:09 Dose: 0.5 mg Budesonide (Pulmicort Respules) 0.5 mg IH RQ12 [facility] Last Admin: 10/06/17 09:37 Dose: 0.5 mg Enoxaparin Sodium (Lovenox) 40 mg SC DAILY [facility] Last Admin: 10/06/17 09:08 Dose: 40 mg Insulin Aspart (Novolog) 0 unit SC [facility] PRN Reason: Protocol Last Admin: 10/06/17 07:57 Dose: 2 unit Insulin Human Regular (Novolin R) 0 unit SC ACHS [facility] PRN Reason: Protocol Last Admin: 10/06/17 07:58 Dose: Not Given Magnesium Hydroxide (Milk Of Magnesia) 30 ml PO DAILY PRN PRN Reason: Constipation Metformin HCl (Glucophage) 1,000 mg PO BID [facility] Last Admin: 10/06/17 09:09 Dose: 1,000 mg Methylprednisolone (Solu-Medrol) 60 mg IVP Q12 [facility] Last Admin: 10/06/17 09:10 Dose: 60 mg Pantoprazole Sodium (Protonix Ec Tab) 40 mg PO DAILY [facility] Last Admin: 10/06/17 09:09 Dose: 40 mg Pregabalin (Lyrica) 50 mg PO BID [facility] Last Admin: 10/06/17 09:09 Dose: 50 mg Roflumilast (Daliresp) 500 mcg PO DAILY [facility] Last Admin: 10/06/17 10:00 Dose: 500 mcg Fluticasone/Salmeterol (Advair Diskus 250/50) 1 puff INH RBID [facility] Last Admin: 10/06/17 09:36 Dose: 1 puff Vitamin B Complex/Folic Acid (Berroca) 1 tab PO DAILY [facility] Last Admin: 10/06/17 10:00 Dose: 1 tab Physical Exam - Head Exam Head Exam: ATRAUMATIC, NORMOCEPHALIC - ENT Exam ENT Exam: Normal Oropharynx - Respiratory Exam Respiratory Exam: Decreased Breath Sounds - Cardiovascular Exam Cardiovascular Exam: REGULAR RHYTHM Results - Vital Signs Recent Vital Signs: Last Vital Signs Temp 97.4 F L 10/06/17 05:00 Pulse 101 H 10/06/17 07:30 Resp 20 10/06/17 05:00 BP 125/71 10/06/17 05:00 Pulse Ox 100 10/06/17 05:00 - Labs Result Diagrams: 10/05/17 11:09 10/05/17 11:09 Labs: Laboratory Results - last 24 hr 10/05/17 10/05/17 10/06/17 18:02 21:00 06:32 POC Glucose (mg/dL) 214 H 160 H 229 H Assessment & Plan (1) COPD exacerbation Status: Acute Priority: Medium Comment: continue nebulizer treatment IV steroids. BiPAP as needed. Continue present medication (2) Acute and chronic respiratory failure ([id number]) Status: Acute
--- NOTE | 2017-10-06 20:10 | CARD ---
APPROVED REPORT EKG Measurement Heart [id number] <Conclusion> Sinus tachycardia Rightward axis Borderline ECG
[2017-10-06] MEDS: guaiFENesin 200 mg/10 ml Syrup UD PO SCH (22:46)
--- NOTE | 2017-10-06 23:29 | CP.PCM.PN ---
Subjective - Date & Time of Evaluation Date of Evaluation: 10/06/17 Time of Evaluation: 19:00 - Subjective Subjective: pt seen and examined BY bedside STILL COUGHING, WHEEZING, LESS SHORT OF BREATH, IS TACYCARDIC, HE DENIES ANY CHEST PAIN, N/V, FEVER, CHILLS Objective - Vital Signs/Intake and Output Vital Signs (last 24 hours): Temp Pulse Resp BP Pulse Ox 98 F 118 H 20 121/75 100 10/06/17 15:30 10/06/17 18:00 10/06/17 22:13 10/06/17 15:30 10/06/17 15:30 Intake and Output: 10/06/17 10/07/17 18:59 06:59 Intake Total 500 Balance 500 - Medications Medications: Current Medications Al Hydrox/Mg Hydrox/Simethicone (Maalox 30 Ml) 30 ml PO Q6H PRN PRN Reason: Indigestion / Heartburn Last Admin: 10/06/17 00:53 Dose: 30 ml Albuterol/Ipratropium (Duoneb 3 Mg/0.5 Mg (3 Ml) Ud) 3 ml INH RQ6 [facility] Last Admin: 10/06/17 20:24 Dose: 3 ml Alprazolam (Xanax) 0.5 mg PO Q12 [facility] Stop: 10/12/17 22:01 Last Admin: 10/06/17 21:28 Dose: 0.5 mg Budesonide (Pulmicort Respules) 0.5 mg IH RQ12 [facility] Last Admin: 10/06/17 20:24 Dose: 0.5 mg Enoxaparin Sodium (Lovenox) 40 mg SC DAILY [facility] Last Admin: 10/06/17 09:08 Dose: 40 mg Guaifenesin (Robitussin) 200 mg PO Q4H [facility] Last Admin: 10/06/17 22:46 Dose: 200 mg Insulin Aspart (Novolog) 0 unit SC ACHS [facility] PRN Reason: Protocol Last Admin: 10/06/17 21:56 Dose: Not Given Insulin Human Regular (Novolin R) 0 unit SC ACHS [facility] PRN Reason: Protocol Last Admin: 10/06/17 21:56 Dose: Not Given Magnesium Hydroxide (Milk Of Magnesia) 30 ml PO DAILY PRN PRN Reason: Constipation Metformin HCl (Glucophage) 1,000 mg PO BID [facility] Last Admin: 10/06/17 17:24 Dose: 1,000 mg Methylprednisolone (Solu-Medrol) 60 mg IVP Q12 [facility] Last Admin: 10/06/17 21:28 Dose: 60 mg Pantoprazole Sodium (Protonix Ec Tab) 40 mg PO DAILY [facility] Last Admin: 10/06/17 09:09 Dose: 40 mg Pregabalin (Lyrica) 50 mg PO BID [facility] Last Admin: 10/06/17 17:24 Dose: 50 mg Roflumilast (Daliresp) 500 mcg PO DAILY [facility] Last Admin: 10/06/17 10:00 Dose: 500 mcg Fluticasone/Salmeterol (Advair Diskus 250/50) 1 puff INH RBID [facility] Last Admin: 10/06/17 20:23 Dose: 1 puff Vitamin B Complex/Folic Acid (Berroca) 1 tab PO DAILY [facility] Last Admin: 10/06/17 10:00 Dose: 1 tab - Labs Labs: 10/05/17 11:09 10/05/17 11:09 PT 11.2 SECONDS (9.7-12.2) 10/05/17 11:09 INR 1.0 10/05/17 11:09 APTT 32 SECONDS (21-34) 10/05/17 11:09 - Constitutional Appears: No Acute Distress - Head Exam Head Exam: ATRAUMATIC, NORMAL INSPECTION, NORMOCEPHALIC - Eye Exam Eye Exam: EOMI, Normal appearance, PERRL Pupil Exam: NORMAL ACCOMODATION, PERRL - Respiratory Exam Respiratory Exam: Decreased Breath Sounds, Rales, Rhonchi - Cardiovascular Exam Cardiovascular Exam: REGULAR RHYTHM, +S1, +S2. absent: Murmur - GI/Abdominal Exam GI & Abdominal Exam: Soft, Normal Bowel Sounds. absent: Tenderness Assessment and Plan (1) COPD exacerbation Status: Acute (2) Allergic rhinitis Status: Chronic (3) Anxiety Status: Chronic (4) CHF (congestive heart failure) Status: Chronic (5) Steroid-induced diabetes Status: Chronic
[2017-10-07] MEDS: Albuterol-Ipratrop 3 mg / 0.5 (3 ml) UD INH SCH ×4 (02:08→20:38)
[2017-10-07] MEDS: (Novolin R) Insulin Human Regular 100 units/ml vial SC SCH ×4 (07:49→22:46)
[2017-10-07] MEDS: (Novolog) Insulin Aspart, Recombinant 100 u/ml 10 ml vial SC SCH ×2 (07:49→12:00)
[2017-10-07] MEDS: Budesonide 0.5 mg/2 ml Inhal Susp UD IH SCH ×2 (08:00→20:37)
[2017-10-07] MEDS: Fluticasone-Salmeterol 250-50mcg Diskus INH SCH ×2 (08:00→20:37)
[2017-10-07] MEDS: Pantoprazole 40 mg EC Tab PO SCH (10:01)
[2017-10-07] MEDS: guaiFENesin 200 mg/10 ml Syrup UD PO SCH ×4 (10:02→21:54)
[2017-10-07] MEDS: Enoxaparin 40 mg Syringe SC SCH (10:03)
--- NOTE | 2017-10-07 23:41 | CP.PCM.PN ---
Subjective - Date & Time of Evaluation Date of Evaluation: 10/07/17 Time of Evaluation: 19:00 - Subjective Subjective: pt seen and examined ay bedside, less short of breath, less tachycardic, on medical management Objective - Vital Signs/Intake and Output Vital Signs (last 24 hours): Temp Pulse Resp BP Pulse Ox 97.3 F L 98 H 20 104/68 100 10/07/17 15:27 10/07/17 15:27 10/07/17 15:27 10/07/17 15:27 10/07/17 15:27 Intake and Output: 10/07/17 10/08/17 18:59 06:59 Intake Total 500 Balance 500 - Medications Medications: Current Medications Al Hydrox/Mg Hydrox/Simethicone (Maalox 30 Ml) 30 ml PO Q6H PRN PRN Reason: Indigestion / Heartburn Last Admin: 10/06/17 00:53 Dose: 30 ml Albuterol/Ipratropium (Duoneb 3 Mg/0.5 Mg (3 Ml) Ud) 3 ml INH RQ6 [facility] Last Admin: 10/07/17 20:38 Dose: 3 ml Alprazolam (Xanax) 0.5 mg PO Q12 [facility] Stop: 10/12/17 22:01 Last Admin: 10/07/17 21:50 Dose: 0.5 mg Budesonide (Pulmicort Respules) 0.5 mg IH RQ12 [facility] Last Admin: 10/07/17 20:37 Dose: 0.5 mg Enoxaparin Sodium (Lovenox) 40 mg SC DAILY [facility] Last Admin: 10/07/17 10:03 Dose: 40 mg Guaifenesin (Robitussin) 200 mg PO Q4H [facility] Last Admin: 10/07/17 21:54 Dose: 200 mg Insulin Human Regular (Novolin R) 0 unit SC ACHS [facility] PRN Reason: Protocol Last Admin: 10/07/17 22:46 Dose: Not Given Magnesium Hydroxide (Milk Of Magnesia) 30 ml PO DAILY PRN PRN Reason: Constipation Metformin HCl (Glucophage) 1,000 mg PO BID [facility] Last Admin: 10/07/17 17:45 Dose: 1,000 mg Methylprednisolone (Solu-Medrol) 60 mg IVP Q12 [facility] Last Admin: 10/07/17 21:50 Dose: 60 mg Pantoprazole Sodium (Protonix Ec Tab) 40 mg PO DAILY [facility] Last Admin: 10/07/17 10:01 Dose: 40 mg Pregabalin (Lyrica) 50 mg PO BID [facility] Last Admin: 10/07/17 17:45 Dose: 50 mg Roflumilast (Daliresp) 500 mcg PO DAILY [facility] Last Admin: 10/07/17 09:46 Dose: 500 mcg Fluticasone/Salmeterol (Advair Diskus 250/50) 1 puff INH RBID [facility] Last Admin: 10/07/17 20:37 Dose: 1 puff Vitamin B Complex/Folic Acid (Berroca) 1 tab PO DAILY [facility] Last Admin: 10/07/17 09:46 Dose: 1 tab - Labs Labs: 10/05/17 11:09 10/05/17 11:09 PT 11.2 SECONDS (9.7-12.2) 10/05/17 11:09 INR 1.0 10/05/17 11:09 APTT 32 SECONDS (21-34) 10/05/17 11:09 - Constitutional Appears: No Acute Distress - Head Exam Head Exam: ATRAUMATIC, NORMAL INSPECTION, NORMOCEPHALIC - Eye Exam Eye Exam: EOMI, Normal appearance, PERRL Pupil Exam: NORMAL ACCOMODATION, PERRL - Respiratory Exam Respiratory Exam: Clear to Ausculation Bilateral, NORMAL BREATHING PATTERN - Cardiovascular Exam Cardiovascular Exam: REGULAR RHYTHM, +S1, +S2. absent: Murmur - Neurological Exam Neurological Exam: Alert, Oriented x3 Assessment and Plan (1) COPD exacerbation Status: Acute (2) Allergic rhinitis Status: Chronic (3) Anxiety Status: Chronic (4) CHF (congestive heart failure) Status: Chronic (5) Steroid-induced diabetes Status: Chronic
[2017-10-08] MEDS: guaiFENesin 200 mg/10 ml Syrup UD PO SCH ×5 (02:15→23:18)
[2017-10-08] MEDS: Albuterol-Ipratrop 3 mg / 0.5 (3 ml) UD INH SCH ×4 (03:16→20:11)
[2017-10-08] MEDS: (Novolin R) Insulin Human Regular 100 units/ml vial SC SCH ×4 (07:29→21:33)
[2017-10-08] MEDS: Budesonide 0.5 mg/2 ml Inhal Susp UD IH SCH ×2 (07:40→20:12)
[2017-10-08] MEDS: Fluticasone-Salmeterol 250-50mcg Diskus INH SCH ×2 (07:40→20:12)
[2017-10-08] MEDS: Pantoprazole 40 mg EC Tab PO SCH (09:04)
[2017-10-08] MEDS: Enoxaparin 40 mg Syringe SC SCH (09:13)
--- NOTE | 2017-10-08 12:37 | CP.PCM.PN ---
Subjective - Date & Time of Evaluation Date of Evaluation: 10/08/17 Time of Evaluation: 19:00 - Subjective Subjective: Patient was seen and examined at the bedside. Patient reports his cough and shortness of breath is improved. He has been tolerating his medications and diet. He denies any chest pain or palpitations. Objective - Vital Signs/Intake and Output Vital Signs (last 24 hours): Temp Pulse Resp BP Pulse Ox 97.5 F L 102 H 18 139/77 100 10/08/17 08:43 10/08/17 08:43 10/08/17 08:43 10/08/17 08:43 10/08/17 08:43 Intake and Output: 10/08/17 10/08/17 06:59 18:59 Intake Total 740 Balance 740 - Medications Medications: Current Medications Al Hydrox/Mg Hydrox/Simethicone (Maalox 30 Ml) 30 ml PO Q6H PRN PRN Reason: Indigestion / Heartburn Last Admin: 10/06/17 00:53 Dose: 30 ml Albuterol/Ipratropium (Duoneb 3 Mg/0.5 Mg (3 Ml) Ud) [address] [facility] Last Admin: 10/08/17 07:40 Dose: 3 ml Alprazolam (Xanax) 0.5 mg PO Q12 [facility] Stop: 10/12/17 22:01 Last Admin: 10/08/17 09:04 Dose: 0.5 mg Budesonide (Pulmicort Respules) 0.[address] [facility] Last Admin: 10/08/17 07:40 Dose: 0.5 mg Enoxaparin Sodium (Lovenox) [address] [facility] Last Admin: 10/08/17 09:13 Dose: 40 mg Guaifenesin (Robitussin) [address] [facility] Last Admin: 10/08/17 06:07 Dose: 200 mg Insulin Human Regular (Novolin R) 0 unit SC ACHS [facility] PRN Reason: Protocol Last Admin: 10/08/17 07:29 Dose: 2 unit Magnesium Hydroxide (Milk Of Magnesia) 30 ml PO DAILY PRN PRN Reason: Constipation Metformin HCl (Glucophage) 1,[address] [facility] Last Admin: 10/08/17 09:04 Dose: 1,000 mg Methylprednisolone (Solu-Medrol) [address] [facility] Last Admin: 10/08/17 09:05 Dose: 60 mg Pantoprazole Sodium (Protonix Ec Tab) [address] [facility] Last Admin: 10/08/17 09:04 Dose: 40 mg Pregabalin (Lyrica) [address] [facility] Last Admin: 10/08/17 09:04 Dose: 50 mg Roflumilast (Daliresp) [address] [facility] Last Admin: 10/08/17 09:05 Dose: 500 mcg Fluticasone/Salmeterol (Advair Diskus 250/50) [address] [facility] Last Admin: 10/08/17 07:40 Dose: 1 puff Vitamin B Complex/Folic Acid (Berroca) [address] [facility] Last Admin: 10/08/17 09:05 Dose: 1 tab - Labs Labs: 10/05/17 11:09 10/05/17 11:09 PT 11.2 SECONDS (9.7-12.2) 10/05/17 11:09 INR 1.0 10/05/17 11:09 APTT 32 SECONDS (21-34) 10/05/17 11:09 Assessment and Plan (1) COPD exacerbation Assessment & Plan: Assesment/Plan COPD Exacerbation -uses home oxygen -biPAP as needed -continue duoneb -on IV steroid -pulmicort -guafenisin -continue advair -on rofulimlast Status: Acute (2) Allergic rhinitis Status: Chronic (3) Anxiety Status: Chronic (4) CHF (congestive heart failure) Status: Chronic (5) Steroid-induced diabetes Status: Chronic
--- NOTE | 2017-10-08 13:05 | CP.PCM.PN ---
Subjective - Date & Time of Evaluation Date of Evaluation: 10/08/17 Time of Evaluation: 10:00 - Subjective Subjective: Patient was seen and examined at the bedside. Patient reports his cough and shortness of breath is improved. He has been tolerating his medications and diet. He denies any chest pain or palpitations. Assesment/Plan COPD Exacerbation -uses home oxygen -biPAP as needed -continue duoneb -on IV steroid -pulmicort -guafenisin -continue advair -on rofulimlast Objective - Vital Signs/Intake and Output Vital Signs (last 24 hours): Temp Pulse Resp BP Pulse Ox 97.5 F L 102 H 18 139/77 100 10/08/17 08:43 10/08/17 08:43 10/08/17 08:43 10/08/17 08:43 10/08/17 08:43 Intake and Output: 10/08/17 10/08/17 06:59 18:59 Intake Total 740 Balance 740 - Medications Medications: Current Medications Al Hydrox/Mg Hydrox/Simethicone (Maalox 30 Ml) 30 ml PO Q6H PRN PRN Reason: Indigestion / Heartburn Last Admin: 10/06/17 00:53 Dose: 30 ml Albuterol/Ipratropium (Duoneb 3 Mg/0.5 Mg (3 Ml) Ud) 3 ml INH RQ6 [facility] Last Admin: 10/08/17 07:40 Dose: 3 ml Alprazolam (Xanax) 0.5 mg PO Q12 [facility] Stop: 10/12/17 22:01 Last Admin: 10/08/17 09:04 Dose: 0.5 mg Budesonide (Pulmicort Respules) 0.5 mg IH RQ12 [facility] Last Admin: 10/08/17 07:40 Dose: 0.5 mg Enoxaparin Sodium (Lovenox) 40 mg SC DAILY [facility] Last Admin: 10/08/17 09:13 Dose: 40 mg Guaifenesin (Robitussin) 200 mg PO Q4H [facility] Last Admin: 10/08/17 06:07 Dose: 200 mg Insulin Human Regular (Novolin R) 0 unit SC ACHS [facility] PRN Reason: Protocol Last Admin: 10/08/17 07:29 Dose: 2 unit Magnesium Hydroxide (Milk Of Magnesia) 30 ml PO DAILY PRN PRN Reason: Constipation Metformin HCl (Glucophage) 1,000 mg PO BID [facility] Last Admin: 10/08/17 09:04 Dose: 1,000 mg Methylprednisolone (Solu-Medrol) 60 mg IVP Q12 [facility] Last Admin: 10/08/17 09:05 Dose: 60 mg Pantoprazole Sodium (Protonix Ec Tab) 40 mg PO DAILY [facility] Last Admin: 10/08/17 09:04 Dose: 40 mg Pregabalin (Lyrica) 50 mg PO BID [facility] Last Admin: 10/08/17 09:04 Dose: 50 mg Roflumilast (Daliresp) 500 mcg PO DAILY [facility] Last Admin: 10/08/17 09:05 Dose: 500 mcg Fluticasone/Salmeterol (Advair Diskus 250/50) 1 puff INH RBID [facility] Last Admin: 10/08/17 07:40 Dose: 1 puff Vitamin B Complex/Folic Acid (Berroca) 1 tab PO DAILY [facility] Last Admin: 10/08/17 09:05 Dose: 1 tab - Labs Labs: 10/05/17 11:09 10/05/17 11:09 PT 11.2 SECONDS (9.7-12.2) 10/05/17 11:09 INR 1.0 10/05/17 11:09 APTT 32 SECONDS (21-34) 10/05/17 11:09 Assessment and Plan (1) COPD exacerbation Status: Acute (2) Acute and chronic respiratory failure ([id number]) Status: Acute
[2017-10-09] MEDS: guaiFENesin 200 mg/10 ml Syrup UD PO SCH ×6 (02:21→21:55)
[2017-10-09] MEDS: Albuterol-Ipratrop 3 mg / 0.5 (3 ml) UD INH SCH ×4 (02:33→19:34)
[2017-10-09] MEDS: Budesonide 0.5 mg/2 ml Inhal Susp UD IH SCH ×2 (07:12→19:34)
[2017-10-09 07:52] LABS: HEMOGLOBIN 10.9 g/dL (12.0-18.0); MEAN CELL VOLUME 70.8 fL (80.0-94.0); MEAN CORPUSCULAR HEMOGLOBIN 23.1 pg (27.0-31.0); MEAN CORPUSCULAR HGB CONC 32.6 g/dL (33.0-37.0); MEAN PLATELET VOLUME 8.8 fL (7.2-11.7); RBC 4.7 Mil/uL (4.40-5.90); RED CELL DISTRIBUTION WIDTH 24.9 % (11.5-14.5); WHITE BLOOD COUNT 10.6 K/uL (4.8-10.8)
[2017-10-09 08:13] LABS: BLOOD UREA NITROGEN 15 mg/dL (9-20); CALCIUM 10.1 mg/dl (8.6-10.4); GFR AFRICAN-AMERICAN > 60; GFR NON-AFRICAN AMERICAN > 60
[2017-10-09] MEDS: (Novolin R) Insulin Human Regular 100 units/ml vial SC SCH ×4 (08:49→21:36)
[2017-10-09] MEDS: Fluticasone-Salmeterol 250-50mcg Diskus INH SCH (09:28)
[2017-10-09] MEDS: Pantoprazole 40 mg EC Tab PO SCH (11:13)
[2017-10-09] MEDS: Enoxaparin 40 mg Syringe SC SCH (11:15)
--- NOTE | 2017-10-09 23:07 | CP.PCM.PN ---
Subjective - Date & Time of Evaluation Date of Evaluation: 10/09/17 Time of Evaluation: 19:00 - Subjective Subjective: Patient was seen and examined at the bedside. Patient reports his cough and shortness of breath is improved. He has been tolerating his medications and diet. He denies any chest pain or palpitations. Objective - Vital Signs/Intake and Output Vital Signs (last 24 hours): Temp Pulse Resp BP Pulse Ox 97.3 F L 100 H 20 119/70 100 10/09/17 15:00 10/09/17 15:00 10/09/17 15:00 10/09/17 15:00 10/09/17 15:00 Intake and Output: 10/09/17 10/10/17 18:59 06:59 Intake Total 580 Balance 580 - Medications Medications: Current Medications Al Hydrox/Mg Hydrox/Simethicone (Maalox 30 Ml) 30 ml PO Q6H PRN PRN Reason: Indigestion / Heartburn Last Admin: 10/06/17 00:53 Dose: 30 ml Albuterol/Ipratropium (Duoneb 3 Mg/0.5 Mg (3 Ml) Ud) 3 ml INH RQ6 [facility] Last Admin: 10/09/17 19:34 Dose: 3 ml Alprazolam (Xanax) 0.5 mg PO Q12 [facility] Stop: 10/12/17 22:01 Last Admin: 10/09/17 21:55 Dose: 0.5 mg Budesonide (Pulmicort Respules) 0.5 mg IH RQ12 [facility] Last Admin: 10/09/17 19:34 Dose: 0.5 mg Enoxaparin Sodium (Lovenox) 40 mg SC DAILY [facility] Last Admin: 10/09/17 11:15 Dose: 40 mg Guaifenesin (Robitussin) 200 mg PO Q4H [facility] Last Admin: 10/09/17 21:55 Dose: 200 mg Insulin Human Regular (Novolin R) 0 unit SC ACHS [facility] PRN Reason: Protocol Last Admin: 10/09/17 21:36 Dose: Not Given Magnesium Hydroxide (Milk Of Magnesia) 30 ml PO DAILY PRN PRN Reason: Constipation Metformin HCl (Glucophage) 1,000 mg PO BID [facility] Last Admin: 10/09/17 17:37 Dose: 1,000 mg Methylprednisolone (Solu-Medrol) 60 mg IVP DAILY [facility] Pantoprazole Sodium (Protonix Ec Tab) 40 mg PO DAILY [facility] Last Admin: 10/09/17 11:13 Dose: 40 mg Pregabalin (Lyrica) 50 mg PO BID [facility] Last Admin: 10/09/17 17:38 Dose: 50 mg Roflumilast (Daliresp) 500 mcg PO DAILY [facility] Last Admin: 10/09/17 11:13 Dose: 500 mcg Fluticasone/Salmeterol (Advair Diskus 250/50) 1 puff INH RBID [facility] Last Admin: 10/09/17 09:28 Dose: Not Given Vitamin B Complex/Folic Acid (Berroca) 1 tab PO DAILY [facility] Last Admin: 10/09/17 11:13 Dose: 1 tab - Labs Labs: 10/09/17 07:45 10/09/17 07:45 PT 11.2 SECONDS (9.7-12.2) 10/05/17 11:09 INR 1.0 10/05/17 11:09 APTT 32 SECONDS (21-34) 10/05/17 11:09 - Constitutional Appears: No Acute Distress - Head Exam Head Exam: ATRAUMATIC, NORMAL INSPECTION, NORMOCEPHALIC - Eye Exam Eye Exam: EOMI, Normal appearance, PERRL Pupil Exam: NORMAL ACCOMODATION, PERRL - Respiratory Exam Respiratory Exam: Decreased Breath Sounds, Rales, Rhonchi - Cardiovascular Exam Cardiovascular Exam: Tachycardia, +S1, +S2. absent: Murmur - GI/Abdominal Exam GI & Abdominal Exam: Soft, Normal Bowel Sounds. absent: Tenderness Assessment and Plan (1) COPD exacerbation Assessment & Plan: -uses home oxygen -biPAP as needed -continue duoneb -on IV steroid -pulmicort -guafenisin -continue advair -on rofulimlast Status: Acute (2) Allergic rhinitis Status: Chronic (3) Anxiety Status: Chronic (4) CHF (congestive heart failure) Status: Chronic (5) Steroid-induced diabetes Status: Chronic
[2017-10-10] MEDS: Albuterol-Ipratrop 3 mg / 0.5 (3 ml) UD INH SCH ×3 (01:02→13:10)
[2017-10-10] MEDS: guaiFENesin 200 mg/10 ml Syrup UD PO SCH ×6 (02:11→21:23)
[2017-10-10] MEDS: Budesonide 0.5 mg/2 ml Inhal Susp UD IH SCH ×2 (07:19→20:38)
[2017-10-10 07:35] LABS: BASO % 0.2 % (0.0-2.0); EOS # 0.3 K/uL (0.0-0.7); EOS % 2.7 % (0.0-4.0); HEMOGLOBIN 11.1 g/dL (12.0-18.0); LYMPH # 2.6 K/uL (1.0-4.3); LYMPH % 23.1 % (20.0-40.0); MEAN CORPUSCULAR HEMOGLOBIN 23.2 pg (27.0-31.0); MEAN CORPUSCULAR HGB CONC 33.2 g/dL (33.0-37.0); MEAN PLATELET VOLUME 8.8 fL (7.2-11.7); MONO # 0.7 K/uL (0.0-0.8); MONO % 6.6 % (0.0-10.0); NEUT # 7.5 K/uL (1.8-7.0); NEUT % 67.4 % (50.0-75.0); NRBC % 0.1 % (0.0-2.0); RBC 4.8 Mil/uL (4.40-5.90); RED CELL DISTRIBUTION WIDTH 25.7 % (11.5-14.5); WHITE BLOOD COUNT 11.1 K/uL (4.8-10.8)
[2017-10-10] MEDS: (Novolin R) Insulin Human Regular 100 units/ml vial SC SCH ×4 (07:42→21:22)
[2017-10-10 07:49] LABS: ALB/GLOB RATIO 1.4 (1.0-2.1); ALBUMIN 3.8 g/dL (3.5-5.0); ALT/SGPT 53 U/L (21-72); AST/SGOT 41 U/L (17-59); BLOOD UREA NITROGEN 17 mg/dL (9-20); GFR AFRICAN-AMERICAN > 60; GFR NON-AFRICAN AMERICAN > 60
[2017-10-10] MEDS: Enoxaparin 40 mg Syringe SC SCH (09:44)
[2017-10-10] MEDS: Pantoprazole 40 mg EC Tab PO SCH (09:47)
--- NOTE | 2017-10-10 10:47 | CP.PCM.PN ---
Subjective - Date & Time of Evaluation Date of Evaluation: 10/10/17 Time of Evaluation: 10:47 - Subjective Subjective: Pulmonary consult; covering Dr Nuno Patient was seen and examined at bedside today. He states "I feel better today but not much." He has been using bipap regularly. He uses oxygen 3L 24h/day and nebulizer treatments at home. He is a former heavy smoker, stopped 5 years ago. He states he is only able to walk from bed to bathroom before needing oxygen again. He also states his normal activity level is about the same- walking from bedrooom to bathroom- before needing oxygen. Patient is awaiting colonoscopy with Dr Black pending pulmonology clearance for respiratory status. Objective - Vital Signs/Intake and Output Vital Signs (last 24 hours): Temp Pulse Resp BP Pulse Ox 97.4 F L 87 20 121/75 97 10/10/17 08:00 10/10/17 08:00 10/10/17 08:00 10/10/17 08:00 10/10/17 08:00 - Medications Medications: Current Medications Al Hydrox/Mg Hydrox/Simethicone (Maalox 30 Ml) 30 ml PO Q6H PRN PRN Reason: Indigestion / Heartburn Last Admin: 10/06/17 00:53 Dose: 30 ml Albuterol/Ipratropium (Duoneb 3 Mg/0.5 Mg (3 Ml) Ud) 3 ml INH RQ6 [facility] Last Admin: 10/10/17 07:18 Dose: 3 ml Alprazolam (Xanax) 0.5 mg PO Q12 [facility] Stop: 10/12/17 22:01 Last Admin: 10/10/17 09:57 Dose: 0.5 mg Budesonide (Pulmicort Respules) 0.5 mg IH RQ12 [facility] Last Admin: 10/10/17 07:19 Dose: 0.5 mg Enoxaparin Sodium (Lovenox) 40 mg SC DAILY [facility] Last Admin: 10/10/17 09:44 Dose: 40 mg Guaifenesin (Robitussin) 200 mg PO Q4H [facility] Last Admin: 10/10/17 09:45 Dose: 200 mg Insulin Human Regular (Novolin R) 0 unit SC ACHS [facility] PRN Reason: Protocol Last Admin: 10/10/17 07:42 Dose: Not Given Magnesium Hydroxide (Milk Of Magnesia) 30 ml PO DAILY PRN PRN Reason: Constipation Metformin HCl (Glucophage) 1,000 mg PO BID [facility] Last Admin: 10/10/17 09:47 Dose: 1,000 mg Methylprednisolone (Solu-Medrol) 60 mg IVP DAILY [facility] Last Admin: 10/10/17 09:45 Dose: 60 mg Pantoprazole Sodium (Protonix Ec Tab) 40 mg PO DAILY [facility] Last Admin: 10/10/17 09:47 Dose: 40 mg Pregabalin (Lyrica) 50 mg PO BID [facility] Last Admin: 10/10/17 09:45 Dose: 50 mg Roflumilast (Daliresp) 500 mcg PO DAILY [facility] Last Admin: 10/10/17 09:45 Dose: 500 mcg Fluticasone/Salmeterol (Advair Diskus 250/50) 1 puff INH RBID [facility] Last Admin: 10/09/17 09:28 Dose: Not Given Vitamin B Complex/Folic Acid (Berroca) 1 tab PO DAILY [facility] Last Admin: 10/10/17 09:46 Dose: 1 tab - Labs Labs: 10/10/17 07:01 10/10/17 06:59 PT 11.2 SECONDS (9.7-12.2) 10/05/17 11:09 INR 1.0 10/05/17 11:09 APTT 32 SECONDS (21-34) 10/05/17 11:09 - Constitutional Appears: In Acute Distress (Labored breathing) - Head Exam Head Exam: ATRAUMATIC, NORMAL INSPECTION, NORMOCEPHALIC - Eye Exam Eye Exam: EOMI, Normal appearance Pupil Exam: NORMAL ACCOMODATION, PERRL - Respiratory Exam Respiratory Exam: Decreased Breath Sounds, Prolonged Expiratory Phase, Rhonchi, Wheezes (Wheezing in bilateral upper lobes), Respiratory Distress. absent: Accessory Muscle Use, Clear to Ausculation Bilateral, Rales, NORMAL BREATHING PATTERN - Cardiovascular Exam Cardiovascular Exam: REGULAR RHYTHM, JVD, RRR, +S1, +S2. absent: Diastolic murmur, Murmur - Extremities Exam Extremities Exam: Full ROM, Joint Swelling, Normal Capillary Refill, Pedal Edema (Mild lower extremity edema bilaterally). absent: Calf Tenderness - Neurological Exam Neurological Exam: Alert, Awake, CN II-XII Intact, Oriented x3. absent: Motor Sensory Deficit - Psychiatric Exam Psychiatric exam: Anxious Assessment and Plan (1) Acute exacerbation of chronic obstructive airways disease Assessment & Plan: - Advanced COPD, on home oxygen - Continue BIPAP as needed - Continue duoneb - Continue IV steroid - Pulmicort - Guafenisin - Continue advair - Continue rofulimlast Patient is scheduled for colonscopy with Dr Black pending improved and stabilized respiratory status, he is still wheesing, not feeling well and high flow oxygen requirement, Will continue following the patient, if the respiratory status improved in the next couple of days will clear him for sunday otherwise outpatient procedure when he is back to baseline . Status: Acute (2) COPD exacerbation Status: Acute (3) Abdominal pain Status: Acute (4) Acute and chronic respiratory failure ([id number]) Status: Acute (5) Acute respiratory distress Status: Acute
[2017-10-10] MEDS: Fluticasone-Salmeterol 250-50mcg Diskus INH SCH ×2 (13:10→20:38)
--- NOTE | 2017-10-10 22:19 | CP.PCM.PN ---
Subjective - Date & Time of Evaluation Date of Evaluation: 10/10/17 Time of Evaluation: 19:00 - Subjective Subjective: Pt is doing well, less cough, less short of breath, on medical management diuretics Objective - Vital Signs/Intake and Output Vital Signs (last 24 hours): Temp Pulse Resp BP Pulse Ox 98.0 F 108 H 20 102/66 96 10/10/17 15:00 10/10/17 15:00 10/10/17 15:00 10/10/17 15:00 10/10/17 15:00 Intake and Output: 10/10/17 10/11/17 18:59 06:59 Intake Total 350 Balance 350 - Medications Medications: Current Medications Al Hydrox/Mg Hydrox/Simethicone (Maalox 30 Ml) 30 ml PO Q6H PRN PRN Reason: Indigestion / Heartburn Last Admin: 10/06/17 00:53 Dose: 30 ml Alprazolam (Xanax) 0.5 mg PO Q12 [facility] Stop: 10/12/17 22:01 Last Admin: 10/10/17 21:23 Dose: 0.5 mg Budesonide (Pulmicort Respules) 0.5 mg IH RQ12 [facility] Last Admin: 10/10/17 20:38 Dose: 0.5 mg Enoxaparin Sodium (Lovenox) 40 mg SC DAILY [facility] Last Admin: 10/10/17 09:44 Dose: 40 mg Guaifenesin (Robitussin) 200 mg PO Q4H [facility] Last Admin: 10/10/17 21:23 Dose: 200 mg Insulin Human Regular (Novolin R) 0 unit SC ACHS [facility] PRN Reason: Protocol Last Admin: 10/10/17 21:22 Dose: Not Given Magnesium Hydroxide (Milk Of Magnesia) 30 ml PO DAILY PRN PRN Reason: Constipation Metformin HCl (Glucophage) 1,000 mg PO BID [facility] Last Admin: 10/10/17 17:34 Dose: 1,000 mg Methylprednisolone (Solu-Medrol) 60 mg IVP DAILY [facility] Last Admin: 10/10/17 09:45 Dose: 60 mg Pantoprazole Sodium (Protonix Ec Tab) 40 mg PO DAILY [facility] Last Admin: 10/10/17 09:47 Dose: 40 mg Pregabalin (Lyrica) 50 mg PO BID [facility] Last Admin: 10/10/17 17:34 Dose: 50 mg Roflumilast (Daliresp) 500 mcg PO DAILY [facility] Last Admin: 10/10/17 09:45 Dose: 500 mcg Fluticasone/Salmeterol (Advair Diskus 250/50) 1 puff INH RBID [facility] Last Admin: 10/10/17 20:38 Dose: 1 puff Vitamin B Complex/Folic Acid (Berroca) 1 tab PO DAILY [facility] Last Admin: 10/10/17 09:46 Dose: 1 tab - Labs Labs: 10/10/17 07:01 10/10/17 06:59 PT 11.2 SECONDS (9.7-12.2) 10/05/17 11:09 INR 1.0 10/05/17 11:09 APTT 32 SECONDS (21-34) 10/05/17 11:09 - Constitutional Appears: No Acute Distress - Head Exam Head Exam: ATRAUMATIC, NORMAL INSPECTION, NORMOCEPHALIC - Eye Exam Eye Exam: EOMI, Normal appearance, PERRL Pupil Exam: NORMAL ACCOMODATION, PERRL - Respiratory Exam Respiratory Exam: Clear to Ausculation Bilateral, NORMAL BREATHING PATTERN - Cardiovascular Exam Cardiovascular Exam: REGULAR RHYTHM, +S1, +S2. absent: Murmur Additional comments: S3 positive - GI/Abdominal Exam GI & Abdominal Exam: Soft - Rectal Exam Rectal Exam: Deferred Assessment and Plan (1) COPD exacerbation Status: Acute (2) Allergic rhinitis Status: Chronic (3) Anxiety Status: Chronic (4) CHF (congestive heart failure) Status: Chronic (5) Steroid-induced diabetes Status: Chronic
[2017-10-11] MEDS: guaiFENesin 200 mg/10 ml Syrup UD PO SCH ×5 (01:59→17:54)
[2017-10-11] MEDS: Fluticasone-Salmeterol 250-50mcg Diskus INH SCH (07:00)
[2017-10-11] MEDS: Budesonide 0.5 mg/2 ml Inhal Susp UD IH SCH (07:01)
[2017-10-11 07:39] LABS: BASO # 0.1 K/uL (0.0-0.2); BASO % 0.6 % (0.0-2.0); EOS # 0.4 K/uL (0.0-0.7); EOS % 3.4 % (0.0-4.0); HEMOGLOBIN 11.1 g/dL (12.0-18.0); LYMPH # 2.8 K/uL (1.0-4.3); MEAN CELL VOLUME 70.3 fL (80.0-94.0); MEAN CORPUSCULAR HEMOGLOBIN 23.2 pg (27.0-31.0); MEAN PLATELET VOLUME 9.1 fL (7.2-11.7); MONO # 0.7 K/uL (0.0-0.8); MONO % 6.8 % (0.0-10.0); NEUT # 7.1 K/uL (1.8-7.0); NEUT % 64.2 % (50.0-75.0); NRBC % 0.1 % (0.0-2.0); RBC 4.8 Mil/uL (4.40-5.90); RED CELL DISTRIBUTION WIDTH 25.8 % (11.5-14.5)
[2017-10-11 08:11] VITALS: O2SAT 96
[2017-10-11] MEDS: (Novolin R) Insulin Human Regular 100 units/ml vial SC SCH ×3 (08:30→17:34)
--- NOTE | 2017-10-11 09:10 | CP.PCM.CON ---
<Jeyson Aguilar - Last Filed: 10/11/17 09:25> History of Present Illness - History of Present Illness History of Present Illness: PGY5 GI Fellow Consult Note Patient is a 67yo male with PMHx significant for COPD with frequent exacerbations, CHF, HTN, DM, REYNA, anxiety who presented to the hospital and was admitted on 10/05 for dyspnea and treatment of COPD exacerbation. Our service has been consulted to evaluate the patient for colonoscopy. The patient is known to our service and has a history of sigmoid colon cancer with resection and iliostomy formation in 2017. There have been no issues with the patient's ostomy and he denies any abdominal pain, nausea, vomiting, weight loss, melena or hematochezia. PMHx: See HPI PSHx: LAR with loop ileostomy, Cataract surgery, cardiac catherization w/o stent placement FHx: Brother with unknown type of cancer Social: Former smoker - 80pack years, quit 5yrs ago; No EtOH or illicit drug use 12 Point ROS performed and negative other than where stated above. Past Patient History - Infectious Disease Hx of Infectious Diseases: None - Past Medical History & Family History Past Medical History?: Yes - Past Social History Smoking Status: Former Smoker - CARDIAC Hx Cardia Arrhythmia: Yes (SVT) Hx Congestive Heart Failure: Yes Hx Hypercholesterolemia: Yes Hx Hypertension: Yes - PULMONARY Hx Asthma: Yes Hx Bronchitis: Yes Hx Chronic Obstructive Pulmonary Disease (COPD): Yes (Emphysema) Hx Emphysema: Yes Hx Pneumonia: Yes Hx Sleep Apnea: Yes - NEUROLOGICAL HX Cerebrovascular Accident: Yes - HEENT Hx HEENT Problems: Yes Hx Cataracts: Yes (left cataract removed, r cataract) Other/Comment: wears eyeglasses for distance - RENAL Hx Chronic Kidney Disease: Yes Hx Kidney Stones: Yes - ENDOCRINE/METABOLIC Hx Diabetes Mellitus Type 2: Yes - HEMATOLOGICAL/ONCOLOGICAL Hx Anemia: Yes - INTEGUMENTARY Hx Dermatological Problems: No - MUSCULOSKELETAL/RHEUMATOLOGICAL Hx Arthritis: Yes (Gout) - GASTROINTESTINAL Hx Gastritis: No - PSYCHIATRIC Hx Anxiety: Yes Hx Substance Use: No - SURGICAL HISTORY Hx Surgeries: Yes Hx Cardiac Catheterization: Yes (11/2015) Other/Comment: colon resection with right ileostomy - ANESTHESIA Hx Anesthesia: Yes Hx Anesthesia Reactions: No Hx Malignant Hyperthermia: No Meds Allergies/Adverse Reactions: Allergies Allergy/AdvReac Type Severity Reaction Status Date / Time acetaminophen [From Tylenol] Allergy RASH Verified 09/19/17 12:19 FISH Allergy SWELLING Verified 09/19/17 12:19 shrimp Allergy SHORTNESS Verified 09/19/17 12:19 OF BREATH IV dye Allergy Severe ANAPHYLAXIS Uncoded 09/19/17 12:19 - Medications Medications: Current Medications Al Hydrox/Mg Hydrox/Simethicone (Maalox 30 Ml) 30 ml PO Q6H PRN PRN Reason: Indigestion / Heartburn Last Admin: 10/06/17 00:53 Dose: 30 ml Alprazolam (Xanax) 0.5 mg PO Q12 [facility] Stop: 10/12/17 22:01 Last Admin: 10/10/17 21:23 Dose: 0.5 mg Budesonide (Pulmicort Respules) 0.5 mg IH RQ12 [facility] Last Admin: 10/11/17 07:01 Dose: Not Given Enoxaparin Sodium (Lovenox) 40 mg SC DAILY [facility] Last Admin: 10/10/17 09:44 Dose: 40 mg Guaifenesin (Robitussin) 200 mg PO Q4H [facility] Last Admin: 10/11/17 05:55 Dose: 200 mg Insulin Human Regular (Novolin R) 0 unit SC ACHS [facility] PRN Reason: Protocol Last Admin: 10/10/17 21:22 Dose: Not Given Magnesium Hydroxide (Milk Of Magnesia) 30 ml PO DAILY PRN PRN Reason: Constipation Metformin HCl (Glucophage) 1,000 mg PO BID [facility] Last Admin: 10/10/17 17:34 Dose: 1,000 mg Methylprednisolone (Solu-Medrol) 60 mg IVP DAILY [facility] Last Admin: 10/10/17 09:45 Dose: 60 mg Pantoprazole Sodium (Protonix Ec Tab) 40 mg PO DAILY [facility] Last Admin: 10/10/17 09:47 Dose: 40 mg Pregabalin (Lyrica) 50 mg PO BID [facility] Last Admin: 10/10/17 17:34 Dose: 50 mg Roflumilast (Daliresp) 500 mcg PO DAILY [facility] Last Admin: 10/10/17 09:45 Dose: 500 mcg Fluticasone/Salmeterol (Advair Diskus 250/50) 1 puff INH RBID [facility] Last Admin: 10/11/17 07:00 Dose: 1 puff Vitamin B Complex/Folic Acid (Berroca) 1 tab PO DAILY [facility] Last Admin: 10/10/17 09:46 Dose: 1 tab Results - Vital Signs Recent Vital Signs: Last Vital Signs Temp 97.7 F 10/11/17 07:05 Pulse 91 H 10/11/17 07:05 Resp 20 10/11/17 07:05 BP 122/68 10/11/17 07:05 Pulse Ox 96 10/11/17 07:05 - Labs Result Diagrams: 10/11/17 07:12 10/10/17 06:59 Labs: Laboratory Results - last 24 hr 10/10/17 10/10/17 10/10/17 11:23 16:32 21:10 WBC RBC Hgb Hct MCV MCH MCHC RDW Plt Count MPV Neut % (Auto) Lymph % (Auto) [place] % (Auto) Eos % (Auto) Baso % (Auto) Neut # (Auto) Lymph # (Auto) [place] # (Auto) Eos # (Auto) Baso # (Auto) POC Glucose (mg/dL) 125 H 336 H 171 H 10/11/17 10/11/17 06:36 07:12 WBC 11.0 H RBC 4.80 Hgb 11.1 L Hct 33.7 L MCV 70.3 L MCH 23.2 L MCHC 33.0 RDW 25.8 H Plt Count 253 MPV 9.1 Neut % (Auto) 64.2 Lymph % (Auto) 25.0 [place] % (Auto) 6.8 Eos % (Auto) 3.4 Baso % (Auto) 0.6 Neut # (Auto) 7.1 H Lymph # (Auto) 2.8 [place] # (Auto) 0.7 Eos # (Auto) 0.4 Baso # (Auto) 0.1 POC Glucose (mg/dL) 101 Assessment & Plan - Assessment and Plan (Free Text) Assessment: Patient is a 67yo male with PMHx significant for COPD with frequent exacerbations, CHF, HTN, DM, REYNA, anxiety who presented to the hospital and was admitted on 10/05 for dyspnea and treatment of COPD exacerbation. Our service has been consulted to evaluate the patient for colonoscopy. -Acute COPD exacerbation -H/O sigmoid colon cancer s/p resection Plan: -The patient would benefit from surveillance colonoscopy and is seeking evaluation of bowel to evaluation ability for reversal of ostomy -Given the non-emergent nature of this test, would recommend complete medical optimization prior to proceeding as patient is at increased risk for complications with anesthesia given profound pulmonary disease -Once patient is stable enough for outpatient evaluation and treatment, we can consider scheduling repeat colonoscopy at that time -Encourage outpatient follow up and ongoing care with pulmonology to continue to stabilize this complicated patient - Date & Time Date: 10/11/17 Time: 06:25 <WayneAdrián Burke - Last Filed: 10/11/17 13:23> Meds - Medications Medications: Current Medications Al Hydrox/Mg Hydrox/Simethicone (Maalox 30 Ml) 30 ml PO Q6H PRN PRN Reason: Indigestion / Heartburn Last Admin: 10/06/17 00:53 Dose: 30 ml Alprazolam (Xanax) 0.5 mg PO Q12 [facility] Stop: 10/12/17 22:01 Last Admin: 10/11/17 09:16 Dose: 0.5 mg Budesonide (Pulmicort Respules) 0.5 mg IH RQ12 [facility] Last Admin: 10/11/17 07:01 Dose: Not Given Enoxaparin Sodium (Lovenox) 40 mg SC DAILY [facility] Last Admin: 10/11/17 09:18 Dose: 40 mg Guaifenesin (Robitussin) 200 mg PO Q4H [facility] Last Admin: 10/11/17 09:16 Dose: 200 mg Insulin Human Regular (Novolin R) 0 unit SC ACHS [facility] PRN Reason: Protocol Last Admin: 10/11/17 12:30 Dose: 2 unit Magnesium Hydroxide (Milk Of Magnesia) 30 ml PO DAILY PRN PRN Reason: Constipation Metformin HCl (Glucophage) 1,000 mg PO BID [facility] Last Admin: 10/11/17 09:17 Dose: 1,000 mg Methylprednisolone (Solu-Medrol) 60 mg IVP DAILY [facility] Last Admin: 10/11/17 09:17 Dose: 60 mg Pantoprazole Sodium (Protonix Ec Tab) 40 mg PO DAILY [facility] Last Admin: 10/11/17 09:16 Dose: 40 mg Pregabalin (Lyrica) 50 mg PO BID [facility] Last Admin: 10/11/17 09:17 Dose: 50 mg Roflumilast (Daliresp) 500 mcg PO DAILY [facility] Last Admin: 10/11/17 09:16 Dose: 500 mcg Fluticasone/Salmeterol (Advair Diskus 250/50) 1 puff INH RBID [facility] Last Admin: 10/11/17 07:00 Dose: 1 puff Vitamin B Complex/Folic Acid (Berroca) 1 tab PO DAILY [facility] Last Admin: 10/11/17 09:17 Dose: 1 tab Results - Vital Signs Recent Vital Signs: Last Vital Signs Temp 97.7 F 10/11/17 07:05 Pulse 91 H 10/11/17 07:05 Resp 20 10/11/17 07:05 BP 122/68 10/11/17 07:05 Pulse Ox 96 10/11/17 07:05 - Labs Result Diagrams: 10/11/17 07:12 10/11/17 07:12 Labs: Laboratory Results - last 24 hr 10/10/17 10/10/17 10/11/17 16:32 21:10 06:36 WBC RBC Hgb Hct MCV MCH MCHC RDW Plt Count MPV Neut % (Auto) Lymph % (Auto) [place] % (Auto) Eos % (Auto) Baso % (Auto) Neut # (Auto) Lymph # (Auto) [place] # (Auto) Eos # (Auto) Baso # (Auto) Sodium Potassium Chloride Carbon Dioxide Anion Gap BUN Creatinine Est GFR ( Amer) Est GFR (Non-Af Amer) POC Glucose (mg/dL) 336 H 171 H 101 Random Glucose Calcium Total Bilirubin AST ALT Alkaline Phosphatase Total Protein Albumin Globulin Albumin/Globulin Ratio 10/11/17 10/11/17 10/11/17 07:12 07:12 11:18 WBC 11.0 H RBC 4.80 Hgb 11.1 L Hct 33.7 L MCV 70.3 L MCH 23.2 L MCHC 33.0 RDW 25.8 H Plt Count 253 MPV 9.1 Neut % (Auto) 64.2 Lymph % (Auto) 25.0 [place] % (Auto) 6.8 Eos % (Auto) 3.4 Baso % (Auto) 0.6 Neut # (Auto) 7.1 H Lymph # (Auto) 2.8 [place] # (Auto) 0.7 Eos # (Auto) 0.4 Baso # (Auto) 0.1 Sodium 138 Potassium 3.8 Chloride 98 Carbon Dioxide 27 Anion Gap 16 BUN 15 Creatinine 0.6 L Est GFR ( Amer) > 60 Est GFR (Non-Af Amer) > 60 POC Glucose (mg/dL) 215 H Random Glucose 100 Calcium 9.3 Total Bilirubin 0.2 AST 45 ALT 80 H D Alkaline Phosphatase 105 Total Protein 6.5 Albumin 3.6 Globulin 2.9 Albumin/Globulin Ratio 1.3 Attending/Attestation - Attestation I have personally seen and examined this patient.: Yes I have fully participated in the care of the patient.: Yes I have reviewed all pertinent clinical information: Yes Notes (Text): 10/11/17 13:15 I have seen and examined patient with GI fellow. Agree with above documentation with the following additions. In brief, this is a 67 year old male with history of end-stage COPD, CHF, HTN, DM, who initially presented to hospital with complaint of dyspnea and is currently being treated for COPD exacerbation. He carries a history of colon cancer s/p partial resection and ostomy. GI called for potential colonoscopy prior to ostomy reversal. He denies abdominal pain, nausea, vomiting, diarrhea, fever/chills, weight loss, or bloody output via ostomy. He empties his bag 3 times per day. HEENT: JOYCE, EOMI Chest: b/l inspiratory wheezing CV: RRR S1S2 Abdomen: soft, non-tender to palpation in four quadrants, no palpable hepato/ splenomegaly. RLQ ostomy present with brown liquid stool in bag, midline surgical scar present Extremities: no edema Psych: normal mood, affect Neuro: alert, oriented x 3, CN 3-12 intact Skin: warm, dry, intact, no suspicious lesions present End stage COPD CHF HTN / DM Dyspnea, COPD exacerbation History of colon cancer s/p partial resection and ostomy - Diet as tolerated - Continue with antibiotic therapy as per pulmonary - Patient currently not medically optimized to perform colonoscopy which at this point is an elective procedure prior to consideration of ostomy reversal. Suggest further outpatient follow up and will schedule test after receiving proper pulmonary clearance prior to procedure. No inpatient planned GI intervention, will sign off case. Please reconsult as necessary, case discussed with Dr. Garcia.
[2017-10-11] MEDS: Pantoprazole 40 mg EC Tab PO SCH (09:16)
[2017-10-11] MEDS: Enoxaparin 40 mg Syringe SC SCH (09:18)
[2017-10-11 09:43] LABS: ALB/GLOB RATIO 1.3 (1.0-2.1); ALBUMIN 3.6 g/dL (3.5-5.0); ALT/SGPT 80 U/L (21-72); AST/SGOT 45 U/L (17-59); BLOOD UREA NITROGEN 15 mg/dL (9-20); CALCIUM 9.3 mg/dl (8.6-10.4); GFR AFRICAN-AMERICAN > 60; GFR NON-AFRICAN AMERICAN > 60
[2017-10-11 17:03] VITALS: BP 125/73; PULSE 118; RESP 18; TEMP 98.5
--- NOTE | 2017-10-11 19:43 | CP.PCM.PN ---
Subjective - Date & Time of Evaluation Date of Evaluation: 10/11/17 Time of Evaluation: 18:00 - Subjective Subjective: Pulmonary consult; covering Dr Nuno The Patient was seen and examined at the bedside, Medical records reviewed, and management issues were discussed and formulated with the house staff. He has no complaints today and believes he is improving. Denies fever, chills, chest pain, palpitations, and shortness of breath, Less wheezing and cough. He is anxious because he wants GI to do colonoscopy while inpatient, despite having discussed need to optimize respiratory function. Discussed with the patient in details diagnosis, treatment plans and alternatives Objective - Vital Signs/Intake and Output Vital Signs (last 24 hours): Temp Pulse Resp BP Pulse Ox 98.5 F 118 H 18 125/73 96 10/11/17 17:02 10/11/17 17:02 10/11/17 17:02 10/11/17 17:02 10/11/17 17:02 Intake and Output: 10/11/17 10/12/17 18:59 06:59 Intake Total 750 Balance 750 - Medications Medications: Current Medications Al Hydrox/Mg Hydrox/Simethicone (Maalox 30 Ml) 30 ml PO Q6H PRN PRN Reason: Indigestion / Heartburn Last Admin: 10/06/17 00:53 Dose: 30 ml Alprazolam (Xanax) 0.5 mg PO Q12 [facility] Stop: 10/12/17 22:01 Last Admin: 10/11/17 09:16 Dose: 0.5 mg Budesonide (Pulmicort Respules) 0.5 mg IH RQ12 [facility] Last Admin: 10/11/17 07:01 Dose: Not Given Enoxaparin Sodium (Lovenox) 40 mg SC DAILY [facility] Last Admin: 10/11/17 09:18 Dose: 40 mg Guaifenesin (Robitussin) 200 mg PO Q4H [facility] Last Admin: 10/11/17 17:54 Dose: 200 mg Insulin Human Regular (Novolin R) 0 unit SC ACHS [facility] PRN Reason: Protocol Last Admin: 10/11/17 17:34 Dose: 3 unit Magnesium Hydroxide (Milk Of Magnesia) 30 ml PO DAILY PRN PRN Reason: Constipation Metformin HCl (Glucophage) 1,000 mg PO BID [facility] Last Admin: 10/11/17 17:33 Dose: 1,000 mg Methylprednisolone (Solu-Medrol) 60 mg IVP DAILY [facility] Last Admin: 10/11/17 09:17 Dose: 60 mg Pantoprazole Sodium (Protonix Ec Tab) 40 mg PO DAILY [facility] Last Admin: 10/11/17 09:16 Dose: 40 mg Pregabalin (Lyrica) 50 mg PO BID [facility] Last Admin: 10/11/17 17:33 Dose: 50 mg Roflumilast (Daliresp) 500 mcg PO DAILY [facility] Last Admin: 10/11/17 09:16 Dose: 500 mcg Fluticasone/Salmeterol (Advair Diskus 250/50) 1 puff INH RBID [facility] Last Admin: 10/11/17 07:00 Dose: 1 puff Vitamin B Complex/Folic Acid (Berroca) 1 tab PO DAILY [facility] Last Admin: 10/11/17 09:17 Dose: 1 tab - Labs Labs: 10/11/17 07:12 10/11/17 07:12 PT 11.2 SECONDS (9.7-12.2) 10/05/17 11:09 INR 1.0 10/05/17 11:09 APTT 32 SECONDS (21-34) 10/05/17 11:09 - Constitutional Appears: Well, Non-toxic, No Acute Distress - Head Exam Head Exam: ATRAUMATIC, NORMOCEPHALIC - Eye Exam Eye Exam: EOMI Pupil Exam: PERRL - ENT Exam ENT Exam: Mucous Membranes Moist - Neck Exam Neck Exam: Full ROM. absent: Lymphadenopathy, Tenderness, Thyromegaly - Respiratory Exam Respiratory Exam: Clear to Ausculation Bilateral, NORMAL BREATHING PATTERN. absent: Accessory Muscle Use, Chest Wall Tenderness, Decreased Breath Sounds, Prolonged Expiratory Phase, Rales, Rhonchi, Wheezes, Respiratory Distress, Stridor - Cardiovascular Exam Cardiovascular Exam: +S1, +S2. absent: Diastolic murmur, Murmur - GI/Abdominal Exam GI & Abdominal Exam: Soft, Normal Bowel Sounds. absent: Distended, Tenderness - Neurological Exam Neurological Exam: Alert, Awake, CN II-XII Intact, Oriented x3 - Psychiatric Exam Psychiatric exam: Agitated, Anxious Assessment and Plan (1) Acute exacerbation of chronic obstructive airways disease Assessment & Plan: - Advanced COPD, on home oxygen - Continue BIPAP as needed - Continue duoneb - Wean off steroid - Pulmicort - Guafenisin - Continue advair - Continue rofulimlast Colonoscopy pending improved respiratory status, GI has signed off and has referred for outpatient follow up Discussed with the patient in details diagnosis, treatment plans and alternatives, Status: Acute (2) COPD exacerbation Status: Acute (3) Abdominal pain Status: Acute (4) Acute and chronic respiratory failure ([id number]) Status: Acute (5) Acute respiratory distress Status: Acute
--- NOTE | 2017-10-11 22:22 | CP.PCM.DIS ---
Provider - Provider Date of Admission: 10/06/17 22:09 Attending physician: Hal Garcia MD Time Spent in preparation of Discharge (in minutes): 34 Diagnosis - Discharge Diagnosis (1) COPD exacerbation Status: Acute Priority: Medium (2) Allergic rhinitis Status: Chronic Priority: Medium (3) Anxiety Status: Chronic (4) CHF (congestive heart failure) Status: Chronic (5) Steroid-induced diabetes Status: Chronic Hospital Course - Lab Results Lab Results: Most Recent Lab Values WBC 11.0 K/uL (4.8-10.8) H 10/11/17 07:12 RBC 4.80 Mil/uL (4.40-5.90) 10/11/17 07:12 Hgb 11.1 g/dL (12.0-18.0) L 10/11/17 07:12 Hct 33.7 % (35.0-51.0) L 10/11/17 07:12 MCV 70.3 fL (80.0-94.0) L 10/11/17 07:12 MCH 23.2 pg (27.0-31.0) L 10/11/17 07:12 MCHC 33.0 g/dL (33.0-37.0) 10/11/17 07:12 RDW 25.8 % (11.5-14.5) H 10/11/17 07:12 Plt Count 253 K/uL (130-400) 10/11/17 07:12 MPV 9.1 fL (7.2-11.7) 10/11/17 07:12 Neut % (Auto) 64.2 % (50.0-75.0) 10/11/17 07:12 Lymph % (Auto) 25.0 % (20.0-40.0) 10/11/17 07:12 [place] % (Auto) 6.8 % (0.0-10.0) 10/11/17 07:12 Eos % (Auto) 3.4 % (0.0-4.0) 10/11/17 07:12 Baso % (Auto) 0.6 % (0.0-2.0) 10/11/17 07:12 Neut # (Auto) 7.1 K/uL (1.8-7.0) H 10/11/17 07:12 Lymph # (Auto) 2.8 K/uL (1.0-4.3) 10/11/17 07:12 [place] # (Auto) 0.7 K/uL (0.0-0.8) 10/11/17 07:12 Eos # (Auto) 0.4 K/uL (0.0-0.7) 10/11/17 07:12 Baso # (Auto) 0.1 K/uL (0.0-0.2) 10/11/17 07:12 PT 11.2 SECONDS (9.7-12.2) 10/05/17 11:09 INR 1.0 10/05/17 11:09 APTT 32 SECONDS (21-34) 10/05/17 11:09 Puncture Site Lb 10/05/17 11:45 pCO2 49 mm/Hg (35-45) H 10/05/17 11:45 pO2 210 mm/Hg (80-100) H 10/05/17 11:45 HCO3 27.3 mmol/L (21-28) 10/05/17 11:45 ABG pH 7.38 (7.35-7.45) 10/05/17 11:45 ABG Total CO2 30.5 mmol/L (22-28) H 10/05/17 11:45 ABG O2 Saturation 100.2 % (95-98) H 10/05/17 11:45 ABG Base Excess 3.1 mmol/L (-2.0-3.0) H 10/05/17 11:45 ABG Hemoglobin 11.4 g/dL (11.7-17.4) L 10/05/17 11:45 ABG Carboxyhemoglobin 2.2 % (0.5-1.5) H 10/05/17 11:45 POC ABG HHb (Measured) -0.2 % (0.0-5.0) L 10/05/17 11:45 ABG Methemoglobin 1.4 % (0.0-3.0) 10/05/17 11:45 Jesus Test Na 10/05/17 11:45 A-a O2 Difference 85.0 mm/Hg 10/05/17 11:45 Respiratory Index 0.4 10/05/17 11:45 Hgb O2 Saturation 96.6 % (95.0-98.0) 10/05/17 11:45 Mechanical Rate 12 10/05/17 11:45 FiO2 50.0 % 10/05/17 11:45 Inspiratory BiPAP 12 10/05/17 11:45 Expiratory BiPAP 6 10/05/17 11:45 Sodium 138 mmol/L (132-148) 10/11/17 07:12 Potassium 3.8 mmol/L (3.6-5.2) 10/11/17 07:12 Chloride 98 mmol/L (98-107) 10/11/17 07:12 Carbon Dioxide 27 mmol/L (22-30) 10/11/17 07:12 Anion Gap 16 (10-20) 10/11/17 07:12 BUN 15 mg/dL (9-20) 10/11/17 07:12 Creatinine 0.6 mg/dL (0.8-1.5) L 10/11/17 07:12 Est GFR ( Amer) > 60 10/11/17 07:12 Est GFR (Non-Af Amer) > 60 10/11/17 07:12 POC Glucose (mg/dL) 292 mg/dL (65-110) H 10/11/17 15:57 Random Glucose 100 mg/dL (75-110) 10/11/17 07:12 Calcium 9.3 mg/dl (8.6-10.4) 10/11/17 07:12 Total Bilirubin 0.2 mg/dL (0.2-1.3) 10/11/17 07:12 AST 45 U/L (17-59) 10/11/17 07:12 ALT 80 U/L (21-72) H D 10/11/17 07:12 Alkaline Phosphatase 105 U/L (38-126) 10/11/17 07:12 Troponin I < 0.0120 ng/mL (0.00-0.120) 10/05/17 11:09 Total Protein 6.5 g/dL (6.3-8.3) 10/11/17 07:12 Albumin 3.6 g/dL (3.5-5.0) 10/11/17 07:12 Globulin 2.9 gm/dL (2.2-3.9) 10/11/17 07:12 Albumin/Globulin Ratio 1.3 (1.0-2.1) 10/11/17 07:12 Influenza Typ A,B (EIA) Negative for flu a/b (NEGATIVE) 10/05/17 11:12 - Hospital Course Hospital Course: Patient seen and examined at bedside today, his cough and shortness of breath much improved, pt is stable for discharge .He has no complaints today and believes he is improving. Denies fever, chills, chest pain, palpitations, shortness of breath, wheezing, cough. He is anxious and irritated because he wants GI to do colonoscopy while inpatient, despite having discussed need to optimize respiratory function. - Constitutional Appears: Well, Non-toxic, No Acute Distress - Head Exam Head Exam: ATRAUMATIC, NORMOCEPHALIC - Eye Exam Eye Exam: EOMI Pupil Exam: PERRL - ENT Exam ENT Exam: Mucous Membranes Moist - Neck Exam Neck Exam: Full ROM. absent: Lymphadenopathy, Tenderness, Thyromegaly - Respiratory Exam Respiratory Exam: Clear to Ausculation Bilateral, NORMAL BREATHING PATTERN. absent: Accessory Muscle Use, Chest Wall Tenderness, Decreased Breath Sounds, Prolonged Expiratory Phase, Rales, Rhonchi, Wheezes, Respiratory Distress, Stridor - Cardiovascular Exam Cardiovascular Exam: +S1, +S2. absent: Diastolic murmur, Murmur - GI/Abdominal Exam GI & Abdominal Exam: Soft, Normal Bowel Sounds. absent: Distended, Tenderness - Neurological Exam Neurological Exam: Alert, Awake, CN II-XII Intact, Oriented x3 - Psychiatric Exam Psychiatric exam: Agitated, Anxious Assessment and Plan (1) Acute exacerbation of chronic obstructive airways disease Assessment & Plan: - Advanced COPD, on home oxygen - Continue BIPAP as needed - Continue duoneb - Continue IV steroid - Pulmicort - Guafenisin - Continue advair - Continue rofulimlast Colonoscopy previously pending improved respiratory status, Dr Brandt has signed off and has referred for outpatient follow up Status: Acute (2) COPD exacerbation Status: Acute (3) Abdominal pain Status: Acute (4) Acute and chronic respiratory failure ([id number]) Status: Acute (5) Acute respiratory distress Status: Acute Discharge Exam - Head Exam Head Exam: ATRAUMATIC, NORMOCEPHALIC Discharge Plan - Discharge Medications Prescriptions: predniSONE [predniSONE Tab] 20 mg PO DAILY 20 Days tab - Follow Up Plan Condition: STABLE Disposition: HOME/ ROUTINE Instructions: Type 2 Diabetes, Exacerbation of COPD (DC), Prednisone Additional Instructions: PLEASE PLACE UNDER THE SERVICE OF DR. GARCIA WHILE AT [facility] [place] --- CALL UPON ARRIVAL WITH BED ASSIGNMENT AND FOR ADMITTING ORDERS. FOLLOW UP WITH DR. BRANDT IN THE OFFICE. OUTPATIENT COLONOSCOPY CONTINUE HOME MEDICATIONS PER THE MED REC FALL PRECAUTIONS PER FACILITY PROTOCOL FOR FURTHER ORDERS, CALL DR. GARCIA'S OFFICE Referrals: Hal Garcia MD [Staff Provider] -
== END 2017-10-11 19:46 | disposition home or self-care (01) | DRG 190 ==
LOC: C.ER 10:42 → C.9E 12:05 → C.6T 19:10 → OBSVTOIN 10-06 22:09 → C.5S 10-08 13:46
PROVIDERS: ADMIT Internal Medicine; ATTEND Internal Medicine
DX: J44.1 Chronic obstructive pulmonary disease with (acute) exacerbation (principal); J96.20 Acute and chronic respiratory failure, unspecified whether with hypoxia or hypercapnia; E11.22 Type 2 diabetes mellitus with diabetic chronic kidney disease; I13.0 Hypertensive heart and chronic kidney disease with heart failure and stage 1 through stage 4 chronic kidney disease, or unspecified chronic kidney disease; I50.9 Heart failure, unspecified; G47.33 Obstructive sleep apnea (adult) (pediatric); Z85.038 Personal history of other malignant neoplasm of large intestine; Z87.891 Personal history of nicotine dependence; Z86.73 Personal history of transient ischemic attack (TIA), and cerebral infarction without residual deficits; N18.9 Chronic kidney disease, unspecified; F41.9 Anxiety disorder, unspecified

== ENCOUNTER 2017-10-25 07:12 | Inpatient (IN) | payer MEDICARE, BC ==
[2017-10-25 07:13] VITALS: BMI 22.8
[2017-10-25] MEDS ORDERED: Albuterol 0.083% Inhal Sol (2.5 mg/3 mL) UD INH STA (07:35)
--- NOTE | 2017-10-25 07:42 | C.PDOC ---
Time Seen by Provider: 10/25/17 07:31 Chief Complaint (Nursing): Shortness Of Breath Past Medical History Vital Signs: Last Vital Signs Temp 98.2 F 10/25/17 07:15 Pulse 123 H 10/25/17 07:15 Resp 25 H 10/25/17 07:15 BP 163/91 H 10/25/17 07:15 Pulse Ox 96 10/25/17 07:15 - Medical History PMH: Anemia, Anxiety, Arthritis (Gout), Asthma, Bronchitis, Cardia Arrhythmia ( SVT), CHF, COPD (Emphysema), Diabetes, Emphysema, HTN, Hypercholesterolemia, Kidney Stones, Pneumonia, Chronic Kidney Disease, Sleep Apnea Denies: Gastritis - [facility] Procedures ASSISTANCE WITH RESPIRATORY VENTILATION, 24-96 HRS, CPAP (08/23/17) ASSISTANCE WITH RESPIRATORY VENTILATION, <24 HRS, CPAP (07/08/16) ASSISTANCE WITH RESPIRATORY VENTILATION, >96 HRS, CPAP (05/08/17) CONTINUOUS INVASIVE MECHANICAL VENTILATION <96 CONSEC HRS (11/29/14) DILATION OF RIGHT URETER WITH INTRALUMINAL DEVICE, ENDO (03/20/17) EXCISION OF SIGMOID COLON, ENDO, DIAGN (03/20/17) EXCISION OF STOMACH, ENDO, DIAGN (03/20/17) EXCISION OF TRANSVERSE COLON, ENDO, DIAGN (03/20/17) INFLUENZA VACCINATION (06/02/14) INSERT ENDOTRACHEAL TUBE (11/29/14) LARYGNOSCOPY AND OTH TRACHEOSCOPY (04/18/15) MEASURE OF CARDIAC SAMPL & PRESSURE, L HEART, PERC APPROACH (12/01/15) NON-INVASIVE MECHANICAL VENTILATION (04/18/15) RESECTION OF SIGMOID COLON, OPEN APPROACH (03/20/17) RESPIRATORY VENTILATION, GREATER THAN 96 CONSECUTIVE HOURS (03/20/17) Family History: States: Unknown Family Hx - Social History Hx Tobacco Use: Yes (8 years ppd smoker. quit 1.5 years ago) Hx Alcohol Use: No Hx Substance Use: No - Immunization History Hx Tetanus Toxoid Vaccination: Yes Hx Influenza Vaccination: Yes Hx Pneumococcal Vaccination: Yes (12/01/2014) ED Course And Treatment O2 Sat by Pulse Oximetry: 96 Disposition - Disposition
--- NOTE | 2017-10-25 07:44 | C.PDOC ---
History Of Present Illness 67 year old male with PMHx COPD, CHF, HTN, DM is brought to the ED by EMS for evaluation of worsening SOB. Patient was recently hospitalized under Dr. Garcia and was discharged to [facility] rehab facility. Patient noted hos SOB was worsening since yesterday. Patient was brought in by EMS on BIPAP, further history due to patient being on BIPAP. Patient denies cough, fever, chills, CP. Time Seen by Provider: 10/25/17 07:31 Chief Complaint (Nursing): Shortness Of Breath History Per: Patient History/Exam Limitations: clinical condition Onset/Duration Of Symptoms: Days Current Symptoms Are (Timing): Still Present Initiating Event: Aspiration Current Respiratory Medications: See Home Med List Reports Recently: Hospitalized ([facility] rehab facility) Recent travel outside of the [place]: No Additional History Per: Patient Past Medical History Reviewed: Historical Data, Nursing Documentation, Vital Signs Vital Signs: Last Vital Signs Temp 98.1 F 10/25/17 15:20 Pulse 107 H 10/25/17 09:15 Resp 20 10/25/17 15:20 BP 110/66 10/25/17 15:20 Pulse Ox 96 10/25/17 15:20 - Medical History PMH: Anemia, Anxiety, Arthritis (Gout), Asthma, Bronchitis, Cardia Arrhythmia ( SVT), CHF, COPD (Emphysema), Diabetes, Emphysema, HTN, Hypercholesterolemia, Kidney Stones, Pneumonia, Chronic Kidney Disease, Sleep Apnea Denies: Gastritis Surgical History: No Surg Hx - [facility] Procedures ASSISTANCE WITH RESPIRATORY VENTILATION, 24-96 HRS, CPAP (08/23/17) ASSISTANCE WITH RESPIRATORY VENTILATION, <24 HRS, CPAP (07/08/16) ASSISTANCE WITH RESPIRATORY VENTILATION, >96 HRS, CPAP (05/08/17) CONTINUOUS INVASIVE MECHANICAL VENTILATION <96 CONSEC HRS (11/29/14) DILATION OF RIGHT URETER WITH INTRALUMINAL DEVICE, ENDO (03/20/17) EXCISION OF SIGMOID COLON, ENDO, DIAGN (03/20/17) EXCISION OF STOMACH, ENDO, DIAGN (03/20/17) EXCISION OF TRANSVERSE COLON, ENDO, DIAGN (03/20/17) INFLUENZA VACCINATION (06/02/14) INSERT ENDOTRACHEAL TUBE (11/29/14) LARYGNOSCOPY AND OTH TRACHEOSCOPY (04/18/15) MEASURE OF CARDIAC SAMPL & PRESSURE, L HEART, PERC APPROACH (12/01/15) NON-INVASIVE MECHANICAL VENTILATION (04/18/15) RESECTION OF SIGMOID COLON, OPEN APPROACH (03/20/17) RESPIRATORY VENTILATION, GREATER THAN 96 CONSECUTIVE HOURS (03/20/17) Family History: States: Unknown Family Hx - Social History Hx Tobacco Use: Yes (8 years ppd smoker. quit 1.5 years ago) Hx Alcohol Use: No Hx Substance Use: No - Immunization History Hx Tetanus Toxoid Vaccination: Yes Hx Influenza Vaccination: Yes Hx Pneumococcal Vaccination: Yes (12/01/2014) Review Of Systems Constitutional: Negative for: Fever, Chills Cardiovascular: Negative for: Chest Pain Respiratory: Positive for: Shortness of Breath. Negative for: Cough Gastrointestinal: Negative for: Nausea, Vomiting, Abdominal Pain Skin: Negative for: Rash Neurological: Negative for: Weakness, Numbness, Headache Physical Exam - Physical Exam Appears: Non-toxic, No Acute Distress Skin: Normal Color, Warm, Dry Head: Atraumatic, Normacephalic Eye(s): bilateral: Normal Inspection Nose: No Discharge Oral Mucosa: Moist Neck: Normal ROM Chest: Symmetrical Cardiovascular: Rhythm Regular (Tachycardic), No Murmur Respiratory: Accessory Muscle Use, No Rales, No Rhonchi, Wheezing (Inpiratory and expiratory ), Other (prolonged expiratory phases, patient on BIPAP. RR 24 per minute) Gastrointestinal/Abdominal: Soft, No Tenderness, No Guarding, No Rebound, Other (Vertical laparotomy scar, colostomy RLQ with fecal contents) Extremity: Normal ROM, No Tenderness, No Pedal Edema, No Swelling Pulses: Left Dorsalis Pedis: Normal, Right Dorsalis Pedis: Normal Neurological/Psych: Oriented x3 ED Course And Treatment - Laboratory Results Result Diagrams: 10/25/17 07:56 10/25/17 07:56 ECG: Interpreted By Me, Viewed By Me ECG Rhythm: Sinus Tachycardia Interpretation Of ECG: Right axis deviation, no acute ST or T wave changes, no ectopy Rate From EC O2 Sat by Pulse Oximetry: 96 (On RA) Pulse Ox Interpretation: Normal - Radiology CXR: Viewed By Me, Read By Radiologist CXR Interpretation: Yes: COPD (changes), Other (Biapical pleural thickening with upper lobe granulomatous changes. Bibasilar breast and nipple shadows. Small nodular density at the right lung base laterally may represent nipple shadow. Tortuous aorta with calcification at the aortic knob.) Medical Decision Making Medical Decision Making: Impression: COPD exacerbation Plan: * Labs * ABG * EKG * CXR * Albuterol 10 mg INH * Solumedrol 125 mg IVP * Blood culture * BIPAP * Influenza A B test Disposition - Disposition Disposition: HOSPITALIZED Disposition Time: 08:51 Condition: GUARDED - Clinical Impression Clinical Impression: COPD (chronic obstructive pulmonary disease) - Scribe Statement The provider has reviewed the documentation as recorded by the Scribe Raymond Middleton All medical record entries made by the Scribe were at my direction and personally dictated by me. I have reviewed the chart and agree that the record accurately reflects my personal performance of the history, physical exam, medical decision making, and the department course for this patient. I have also personally directed, reviewed, and agree with the discharge instructions and disposition.
[2017-10-25] MEDS ORDERED: Albuterol-Ipratrop 3 mg / 0.5 (3 ml) UD ONE (07:57)
[2017-10-25 08:06] LABS: ARTERIAL BLOOD GAS HCO3 28.7 mmol/L (21-28); ARTERIAL BLOOD GAS HEMOGLOBIN 11.2 g/dL (11.7-17.4); ARTERIAL BLOOD GAS O2 SAT 71.2 % (95-98); ARTERIAL BLOOD GAS PCO2 61 mm/Hg (35-45); ARTERIAL BLOOD GAS PH 7.34 (7.35-7.45); ARTERIAL BLOOD GAS PO2 35 mm/Hg (80-100); ARTERIAL BLOOD GAS TCO2 34.8 mmol/L (22-28)
[2017-10-25 08:11] LABS: BASO # 0.1 K/uL (0.0-0.2); BASO % 1.3 % (0.0-2.0); EOS # 0.7 K/uL (0.0-0.7); HEMOGLOBIN 11.3 g/dL (12.0-18.0); LYMPH # 3.8 K/uL (1.0-4.3); LYMPH % 34.4 % (20.0-40.0); MEAN CORPUSCULAR HEMOGLOBIN 22.8 pg (27.0-31.0); MEAN CORPUSCULAR HGB CONC 31.5 g/dL (33.0-37.0); MEAN PLATELET VOLUME 8.2 fL (7.2-11.7); MONO # 0.8 K/uL (0.0-0.8); MONO % 7.5 % (0.0-10.0); NEUT # 5.5 K/uL (1.8-7.0); NEUT % 50.8 % (50.0-75.0); RBC 4.93 Mil/uL (4.40-5.90); RED CELL DISTRIBUTION WIDTH 24.5 % (11.5-14.5); WHITE BLOOD COUNT 10.9 K/uL (4.8-10.8)
[2017-10-25 08:15] LABS: MEAN CELL VOLUME 72.6 fL (80.0-94.0)
[2017-10-25 08:25] LABS: ALB/GLOB RATIO 1.4 (1.0-2.1); ALBUMIN 4.1 g/dL (3.5-5.0); ALT/SGPT 72 U/L (21-72); AST/SGOT 43 U/L (17-59); BLOOD UREA NITROGEN 11 mg/dL (9-20); CALCIUM 9.2 mg/dl (8.6-10.4); GFR AFRICAN-AMERICAN > 60; GFR NON-AFRICAN AMERICAN > 60
[2017-10-25 08:28] LABS: B-TYPE NATRIURETIC PEPTIDE 24.5 pg/mL (0-900)
--- NOTE | 2017-10-25 09:03 | RAD ---
Chest x-ray single frontal view History: Shortness of breath. Comparison: 09/19/2017 Findings: Biapical pleural thickening with upper lobe granulomatous changes. Bibasilar breast and nipple shadows. Small nodular density at the right lung base laterally may represent nipple shadow. Tortuous aorta with calcification at the aortic knob. Degenerative changes in the spine with paravertebral osteophytes. Impression: Biapical pleural thickening with upper lobe granulomatous changes. Bibasilar breast and nipple shadows. Small nodular density at the right lung base laterally may represent nipple shadow. Tortuous aorta with calcification at the aortic knob.
[2017-10-25] MEDS: guaiFENesin 200 mg/10 ml Syrup UD PO SCH ×4 (12:26→23:40)
[2017-10-25] MEDS: Enoxaparin 40 mg Syringe SC SCH (13:55)
[2017-10-25] MEDS: Albuterol-Ipratrop 3 mg / 0.5 (3 ml) UD INH SCH ×2 (14:29→21:36)
[2017-10-25] MEDS: (Novolin R) Insulin Human Regular 100 units/ml vial SC SCH ×2 (17:36→21:14)
--- NOTE | 2017-10-25 19:27 | CP.PCM.CON ---
History of Present Illness - History of Present Illness History of Present Illness: Reason for consult: sob Mr Matt Lawson is a 67 year old male with PMHx of COPD/Emphysema/Asthma, CHF, DM, CKD who presented to the ED on 10/25 for evaluation of worsening shortness of breath PMHx: Anemia, Anxiety, Arthritis (Gout), Asthma, Bronchitis, Cardia Arrhythmia ( SVT), CHF, COPD (Emphysema), Diabetes, Emphysema, HTN, Hypercholesterolemia, Kidney Stones, Pneumonia, Chronic Kidney Disease, Sleep Apnea PSHx: denies Allergies: acetaminophen, fish, shrimp, IV dye Social Hx: former smoker with 8 pack-year history, quit 1.5 years ago; denies alcohol/drug use Patient seen and examined at bedside today with present Resting in moderate respiratory distress On supplemental oxygen Recently admitted at [facility] 10/05 to 10/11 for COPD exacerbation Discharged with prednisone Reports return and worsening of symptoms upon return to LTC Assessment/Plan: 1. COPD exacerbation -Most recent chest XR on 10/25: Biapical pleural thickening with upper lobe granulomatous changes. Bibasilar breast and nipple shadows. Small nodular density at the right lung base laterally may represent nipple shadow. -Continue nebulizer treatment -Continue Pulmicort -Continue Advair -Contniue Singulair -Continue Daliresp -Continue Robitussin -BIPAP as needed Past Patient History - Infectious Disease Hx of Infectious Diseases: None - Past Medical History & Family History Past Medical History?: Yes - Past Social History Smoking Status: Former Smoker - CARDIAC Hx Cardia Arrhythmia: Yes (SVT) Hx Congestive Heart Failure: Yes Hx Hypercholesterolemia: Yes Hx Hypertension: Yes - PULMONARY Hx Asthma: Yes Hx Bronchitis: Yes Hx Chronic Obstructive Pulmonary Disease (COPD): Yes (Emphysema) Hx Emphysema: Yes Hx Pneumonia: Yes Hx Sleep Apnea: Yes - NEUROLOGICAL Hx Neurological Disorder: Yes - HEENT Hx HEENT Problems: Yes Hx Cataracts: Yes (left cataract removed, r cataract) Other/Comment: wears eyeglasses for distance - RENAL Hx Chronic Kidney Disease: Yes Hx Kidney Stones: Yes - ENDOCRINE/METABOLIC Hx Diabetes Mellitus Type 2: Yes - HEMATOLOGICAL/ONCOLOGICAL Hx Anemia: Yes - INTEGUMENTARY Hx Dermatological Problems: No - MUSCULOSKELETAL/RHEUMATOLOGICAL Hx Arthritis: Yes (Gout) Hx Falls: Yes - GASTROINTESTINAL Hx Gastritis: No - PSYCHIATRIC Hx Anxiety: Yes Hx Substance Use: No - SURGICAL HISTORY Hx Surgeries: Yes Hx Cardiac Catheterization: Yes (11/2015) Other/Comment: colon resection with right ileostomy - ANESTHESIA Hx Anesthesia: Yes Hx Anesthesia Reactions: No Hx Malignant Hyperthermia: No Meds Allergies/Adverse Reactions: Allergies Allergy/AdvReac Type Severity Reaction Status Date / Time acetaminophen [From Tylenol] Allergy RASH Verified 10/25/17 07:19 FISH Allergy SWELLING Verified 10/25/17 07:19 shrimp Allergy SHORTNESS Verified 10/25/17 07:19 OF BREATH IV dye Allergy Severe ANAPHYLAXIS Uncoded 10/25/17 07:19 - Medications Medications: Current Medications Albuterol/Ipratropium (Duoneb 3 Mg/0.5 Mg (3 Ml) Ud) 3 ml INH RQ6 [facility] Last Admin: 10/25/17 14:29 Dose: 3 ml Alprazolam (Xanax) 0.5 mg PO Q12 [facility] Stop: 11/01/17 22:01 Budesonide (Pulmicort Respules) 1 mg IH RQ12 [facility] Enoxaparin Sodium (Lovenox) 40 mg SC DAILY [facility] Last Admin: 10/25/17 13:55 Dose: 40 mg Guaifenesin (Robitussin) 200 mg PO Q4H [facility] Last Admin: 10/25/17 17:36 Dose: 200 mg Insulin Human Regular (Novolin R) 0 unit SC ACHS [facility] PRN Reason: Protocol Last Admin: 10/25/17 17:36 Dose: 3 unit Metformin HCl (Glucophage) 1,000 mg PO BID [facility] Last Admin: 10/25/17 17:36 Dose: 1,000 mg Montelukast Sodium (Singulair) 10 mg PO HS [facility] Pregabalin (Lyrica) 50 mg PO BID [facility] Last Admin: 10/25/17 17:36 Dose: 50 mg Roflumilast (Daliresp) 500 mcg PO DAILY [facility] Fluticasone/Salmeterol (Advair Diskus 250/50) 1 puff INH RBID [facility] Results - Vital Signs Recent Vital Signs: Last Vital Signs Temp 98.1 F 10/25/17 15:20 Pulse 107 H 10/25/17 09:15 Resp 20 10/25/17 15:20 BP 110/66 10/25/17 15:20 Pulse Ox 96 10/25/17 15:20 - Labs Result Diagrams: 10/25/17 07:56 10/25/17 07:56 Labs: Laboratory Results - last 24 hr 10/25/17 10/25/17 10/25/17 07:34 07:56 07:56 WBC 10.9 H RBC 4.93 Hgb 11.3 L Hct 35.7 MCV 72.6 L D MCH 22.8 L MCHC 31.5 L RDW 24.5 H Plt Count 248 MPV 8.2 Neut % (Auto) 50.8 Lymph % (Auto) 34.4 [place] % (Auto) 7.5 Eos % (Auto) 6.0 H Baso % (Auto) 1.3 Neut # (Auto) 5.5 Lymph # (Auto) 3.8 [place] # (Auto) 0.8 Eos # (Auto) 0.7 Baso # (Auto) 0.1 Puncture Site pCO2 pO2 HCO3 ABG pH ABG Total CO2 ABG O2 Saturation ABG Base Excess ABG Hemoglobin ABG Carboxyhemoglobin POC ABG HHb (Measured) ABG Methemoglobin Jesus Test A-a O2 Difference Respiratory Index Hgb O2 Saturation Vent Mode Mechanical Rate FiO2 Inspiratory BiPAP Expiratory BiPAP Crit Value Called To Crit Value Called By Crit Value Read Back Blood Gas Notified Time Sodium 145 Potassium 4.7 Chloride 100 Carbon Dioxide 30 Anion Gap 19 BUN 11 Creatinine 0.6 L Est GFR ( Amer) > 60 Est GFR (Non-Af Amer) > 60 POC Glucose (mg/dL) Random Glucose 132 H Lactic Acid Calcium 9.2 Total Bilirubin 0.3 AST 43 ALT 72 Alkaline Phosphatase 130 H D Troponin I < 0.0120 NT-Pro-B Natriuret Pep 24.5 Total Protein 7.1 Albumin 4.1 Globulin 2.9 Albumin/Globulin Ratio 1.4 Influenza Typ A,B (EIA) Negative for flu a/b 10/25/17 10/25/17 10/25/17 08:00 08:20 17:11 WBC RBC Hgb Hct MCV MCH MCHC RDW Plt Count MPV Neut % (Auto) Lymph % (Auto) [place] % (Auto) Eos % (Auto) Baso % (Auto) Neut # (Auto) Lymph # (Auto) [place] # (Auto) Eos # (Auto) Baso # (Auto) Puncture Site Rra pCO2 61 H pO2 35 L* HCO3 28.7 H ABG pH 7.34 L ABG Total CO2 34.8 H ABG O2 Saturation 71.2 L ABG Base Excess 5.6 H ABG Hemoglobin 11.2 L ABG Carboxyhemoglobin 2.0 H POC ABG HHb (Measured) 27.9 H ABG Methemoglobin 1.1 Jesus Test Na A-a O2 Difference 174.0 Respiratory Index 5.0 Hgb O2 Saturation 68.9 L Vent Mode Bipap Mechanical Rate 12 FiO2 40.0 Inspiratory BiPAP 12 Expiratory BiPAP 6 Crit Value Called To Leyla er nurse Crit Value Called By Jaye rt Crit Value Read Back Y Blood Gas Notified Time 805 Sodium Potassium Chloride Carbon Dioxide Anion Gap BUN Creatinine Est GFR ( Amer) Est GFR (Non-Af Amer) POC Glucose (mg/dL) 265 H Random Glucose Lactic Acid 3.1 H Calcium Total Bilirubin AST ALT Alkaline Phosphatase Troponin I NT-Pro-B Natriuret Pep Total Protein Albumin Globulin Albumin/Globulin Ratio Influenza Typ A,B (EIA)
[2017-10-25] MEDS: Fluticasone-Salmeterol 250-50mcg Diskus INH SCH (21:13)
[2017-10-25] MEDS: Budesonide 0.5 mg/2 ml Inhal Susp UD IH SCH (21:35)
--- NOTE | 2017-10-25 23:42 | CP.PCM.HP ---
History of Present Illness - History of Present Illness History of Present Illness: cc: sob Mr Matt Lawson is a 67 year old male with PMHx of COPD/Emphysema/Asthma, CHF, DM, CKD who presented to the ED on 10/25 for evaluation of worsening shortness of breath PMHx: Anemia, Anxiety, Arthritis (Gout), Asthma, Bronchitis, Cardia Arrhythmia ( SVT), CHF, COPD (Emphysema), Diabetes, Emphysema, HTN, Hypercholesterolemia, Kidney Stones, Pneumonia, Chronic Kidney Disease, Sleep Apnea PSHx: denies Allergies: acetaminophen, fish, shrimp, IV dye Social Hx: former smoker with 8 pack-year history, quit 1.5 years ago; denies alcohol/drug use Patient seen and examined at bedside today with present Resting in moderate respiratory distress On supplemental oxygen Recently admitted at [facility] 10/05 to 10/11 for COPD exacerbation Discharged with prednisone Reports return and worsening of symptoms upon return to LTC Assessment/Plan: 1. COPD exacerbation -Most recent chest XR on 10/25: Biapical pleural thickening with upper lobe granulomatous changes. Bibasilar breast and nipple shadows. Small nodular density at the right lung base laterally may represent nipple shadow. -Continue nebulizer treatment -Continue Pulmicort -Continue Advair -Contniue Singulair -Continue Daliresp -Continue Robitussin -BIPAP as needed Past Patient History - Infectious Disease Hx of Infectious Diseases: None - Past Medical History & Family History Past Medical History?: Yes - Past Social History Smoking Status: Former Smoker - CARDIAC Hx Cardia Arrhythmia: Yes (SVT) Hx Congestive Heart Failure: Yes Hx Hypercholesterolemia: Yes Hx Hypertension: Yes - PULMONARY Hx Asthma: Yes Hx Bronchitis: Yes Hx Chronic Obstructive Pulmonary Disease (COPD): Yes (Emphysema) Hx Emphysema: Yes Hx Pneumonia: Yes Hx Sleep Apnea: Yes - NEUROLOGICAL Hx Neurological Disorder: Yes - HEENT Hx HEENT Problems: Yes Hx Cataracts: Yes (left cataract removed, r cataract) Other/Comment: wears eyeglasses for distance - RENAL Hx Chronic Kidney Disease: Yes Hx Kidney Stones: Yes - ENDOCRINE/METABOLIC Hx Diabetes Mellitus Type 2: Yes - HEMATOLOGICAL/ONCOLOGICAL Hx Anemia: Yes - INTEGUMENTARY Hx Dermatological Problems: No - MUSCULOSKELETAL/RHEUMATOLOGICAL Hx Arthritis: Yes (Gout) - GASTROINTESTINAL Hx Gastritis: No - PSYCHIATRIC Hx Anxiety: Yes Hx Substance Use: No - SURGICAL HISTORY Hx Surgeries: Yes Hx Cardiac Catheterization: Yes (11/2015) Other/Comment: colon resection with right ileostomy - ANESTHESIA Hx Anesthesia: Yes Hx Anesthesia Reactions: No Hx Malignant Hyperthermia: No Meds Allergies/Adverse Reactions: Allergies Allergy/AdvReac Type Severity Reaction Status Date / Time acetaminophen [From Tylenol] Allergy RASH Verified 10/25/17 07:19 FISH Allergy SWELLING Verified 10/25/17 07:19 shrimp Allergy SHORTNESS Verified 10/25/17 07:19 OF BREATH IV dye Allergy Severe ANAPHYLAXIS Uncoded 10/25/17 07:19 Results - Vital Signs Recent Vital Signs: Last Vital Signs Temp 98.1 F 10/25/17 15:20 Pulse 107 H 10/25/17 09:15 Resp 20 10/25/17 15:20 BP 110/66 10/25/17 15:20 Pulse Ox 96 10/25/17 21:02 - Labs Result Diagrams: 10/25/17 07:56 10/25/17 07:56 Labs: Laboratory Results - last 24 hr 10/25/17 10/25/17 10/25/17 07:34 07:56 07:56 WBC 10.9 H RBC 4.93 Hgb 11.3 L Hct 35.7 MCV 72.6 L D MCH 22.8 L MCHC 31.5 L RDW 24.5 H Plt Count 248 MPV 8.2 Neut % (Auto) 50.8 Lymph % (Auto) 34.4 [place] % (Auto) 7.5 Eos % (Auto) 6.0 H Baso % (Auto) 1.3 Neut # (Auto) 5.5 Lymph # (Auto) 3.8 [place] # (Auto) 0.8 Eos # (Auto) 0.7 Baso # (Auto) 0.1 Puncture Site pCO2 pO2 HCO3 ABG pH ABG Total CO2 ABG O2 Saturation ABG Base Excess ABG Hemoglobin ABG Carboxyhemoglobin POC ABG HHb (Measured) ABG Methemoglobin Jesus Test A-a O2 Difference Respiratory Index Hgb O2 Saturation Vent Mode Mechanical Rate FiO2 Inspiratory BiPAP Expiratory BiPAP Crit Value Called To Crit Value Called By Crit Value Read Back Blood Gas Notified Time Sodium 145 Potassium 4.7 Chloride 100 Carbon Dioxide 30 Anion Gap 19 BUN 11 Creatinine 0.6 L Est GFR ( Amer) > 60 Est GFR (Non-Af Amer) > 60 POC Glucose (mg/dL) Random Glucose 132 H Lactic Acid Calcium 9.2 Total Bilirubin 0.3 AST 43 ALT 72 Alkaline Phosphatase 130 H D Troponin I < 0.0120 NT-Pro-B Natriuret Pep 24.5 Total Protein 7.1 Albumin 4.1 Globulin 2.9 Albumin/Globulin Ratio 1.4 Influenza Typ A,B (EIA) Negative for flu a/b 10/25/17 10/25/17 10/25/17 08:00 08:20 17:11 WBC RBC Hgb Hct MCV MCH MCHC RDW Plt Count MPV Neut % (Auto) Lymph % (Auto) [place] % (Auto) Eos % (Auto) Baso % (Auto) Neut # (Auto) Lymph # (Auto) [place] # (Auto) Eos # (Auto) Baso # (Auto) Puncture Site Rra pCO2 61 H pO2 35 L* HCO3 28.7 H ABG pH 7.34 L ABG Total CO2 34.8 H ABG O2 Saturation 71.2 L ABG Base Excess 5.6 H ABG Hemoglobin 11.2 L ABG Carboxyhemoglobin 2.0 H POC ABG HHb (Measured) 27.9 H ABG Methemoglobin 1.1 Jesus Test Na A-a O2 Difference 174.0 Respiratory Index 5.0 Hgb O2 Saturation 68.9 L Vent Mode Bipap Mechanical Rate 12 FiO2 40.0 Inspiratory BiPAP 12 Expiratory BiPAP 6 Crit Value Called To Leyla campos nurse Crit Value Called By Jaye leal Crit Value Read Back Y Blood Gas Notified Time 805 Sodium Potassium Chloride Carbon Dioxide Anion Gap BUN Creatinine Est GFR ( Amer) Est GFR (Non-Af Amer) POC Glucose (mg/dL) 265 H Random Glucose Lactic Acid 3.1 H Calcium Total Bilirubin AST ALT Alkaline Phosphatase Troponin I NT-Pro-B Natriuret Pep Total Protein Albumin Globulin Albumin/Globulin Ratio Influenza Typ A,B (EIA) 10/25/17 21:12 WBC RBC Hgb Hct MCV MCH MCHC RDW Plt Count MPV Neut % (Auto) Lymph % (Auto) [place] % (Auto) Eos % (Auto) Baso % (Auto) Neut # (Auto) Lymph # (Auto) [place] # (Auto) Eos # (Auto) Baso # (Auto) Puncture Site pCO2 pO2 HCO3 ABG pH ABG Total CO2 ABG O2 Saturation ABG Base Excess ABG Hemoglobin ABG Carboxyhemoglobin POC ABG HHb (Measured) ABG Methemoglobin Jesus Test A-a O2 Difference Respiratory Index Hgb O2 Saturation Vent Mode Mechanical Rate FiO2 Inspiratory BiPAP Expiratory BiPAP Crit Value Called To Crit Value Called By Crit Value Read Back Blood Gas Notified Time Sodium Potassium Chloride Carbon Dioxide Anion Gap BUN Creatinine Est GFR ( Amer) Est GFR (Non-Af Amer) POC Glucose (mg/dL) 132 H Random Glucose Lactic Acid Calcium Total Bilirubin AST ALT Alkaline Phosphatase Troponin I NT-Pro-B Natriuret Pep Total Protein Albumin Globulin Albumin/Globulin Ratio Influenza Typ A,B (EIA)
[2017-10-26] MEDS: Albuterol-Ipratrop 3 mg / 0.5 (3 ml) UD INH SCH ×4 (01:53→20:45)
[2017-10-26] MEDS: guaiFENesin 200 mg/10 ml Syrup UD PO SCH ×5 (03:23→20:45)
[2017-10-26] MEDS: Budesonide 0.5 mg/2 ml Inhal Susp UD IH SCH ×2 (07:58→20:45)
[2017-10-26] MEDS: Fluticasone-Salmeterol 250-50mcg Diskus INH SCH ×2 (07:58→20:45)
[2017-10-26] MEDS: (Novolin R) Insulin Human Regular 100 units/ml vial SC SCH ×4 (08:49→22:24)
[2017-10-26 09:07] LABS: BASO # 0.1 K/uL (0.0-0.2); BASO % 0.7 % (0.0-2.0); EOS # 0.2 K/uL (0.0-0.7); EOS % 2.1 % (0.0-4.0); HEMOGLOBIN 10.8 g/dL (12.0-18.0); LYMPH # 1.6 K/uL (1.0-4.3); LYMPH % 16.7 % (20.0-40.0); MEAN CELL VOLUME 71.7 fL (80.0-94.0); MEAN CORPUSCULAR HEMOGLOBIN 23.6 pg (27.0-31.0); MEAN CORPUSCULAR HGB CONC 32.9 g/dL (33.0-37.0); MEAN PLATELET VOLUME 8.7 fL (7.2-11.7); MONO # 0.6 K/uL (0.0-0.8); MONO % 6.3 % (0.0-10.0); NEUT # 6.9 K/uL (1.8-7.0); NEUT % 74.2 % (50.0-75.0); RBC 4.59 Mil/uL (4.40-5.90); RED CELL DISTRIBUTION WIDTH 23.8 % (11.5-14.5); WHITE BLOOD COUNT 9.3 K/uL (4.8-10.8)
[2017-10-26 09:27] LABS: ALB/GLOB RATIO 1.3 (1.0-2.1); ALBUMIN 4.2 g/dL (3.5-5.0); ALT/SGPT 58 U/L (21-72); AST/SGOT 32 U/L (17-59); BLOOD UREA NITROGEN 11 mg/dL (9-20); CALCIUM 9.1 mg/dl (8.6-10.4); GFR AFRICAN-AMERICAN > 60; GFR NON-AFRICAN AMERICAN > 60
[2017-10-26] MEDS: Enoxaparin 40 mg Syringe SC SCH (11:01)
--- NOTE | 2017-10-26 12:39 | CP.PCM.PN ---
Subjective - Date & Time of Evaluation Date of Evaluation: 10/26/17 Time of Evaluation: 08:20 - Subjective Subjective: the patient seen and examined. Still complaining of shortness of breath Afebrile On BiPAP at night Objective - Vital Signs/Intake and Output Vital Signs (last 24 hours): Temp Pulse Resp BP Pulse Ox 97.5 F L 101 H 20 120/76 97 10/26/17 08:31 10/26/17 08:31 10/26/17 00:00 10/26/17 08:31 10/26/17 08:31 Intake and Output: 10/26/17 10/26/17 06:59 18:59 Intake Total 100 Balance 100 - Medications Medications: Current Medications Albuterol/Ipratropium (Duoneb 3 Mg/0.5 Mg (3 Ml) Ud) 3 ml INH RQ6 [facility] Last Admin: 10/26/17 07:58 Dose: 3 ml Alprazolam (Xanax) 0.5 mg PO Q12 [facility] Stop: 11/01/17 22:01 Last Admin: 10/26/17 11:02 Dose: 0.5 mg Budesonide (Pulmicort Respules) 1 mg IH RQ12 [facility] Last Admin: 10/26/17 07:58 Dose: 1 mg Enoxaparin Sodium (Lovenox) 40 mg SC DAILY [facility] Last Admin: 10/26/17 11:01 Dose: 40 mg Guaifenesin (Robitussin) 200 mg PO Q4H [facility] Last Admin: 10/26/17 12:23 Dose: 200 mg Insulin Human Regular (Novolin R) 0 unit SC ACHS [facility] PRN Reason: Protocol Last Admin: 10/26/17 12:23 Dose: 1 unit Metformin HCl (Glucophage) 1,000 mg PO BID [facility] Last Admin: 10/26/17 11:01 Dose: 1,000 mg Montelukast Sodium (Singulair) 10 mg PO HS [facility] Last Admin: 10/25/17 21:13 Dose: 10 mg Prednisone (Prednisone Tab) 10 mg PO DAILY [facility] Last Admin: 10/26/17 11:20 Dose: 10 mg Pregabalin (Lyrica) 50 mg PO BID [facility] Last Admin: 10/26/17 11:02 Dose: 50 mg Roflumilast (Daliresp) 500 mcg PO DAILY [facility] Last Admin: 10/26/17 11:02 Dose: 500 mcg Fluticasone/Salmeterol (Advair Diskus 250/50) 1 puff INH [facility] Last Admin: 10/26/17 07:58 Dose: 1 inhaler - Labs Labs: 10/26/17 09:01 10/26/17 09:01 - Head Exam Head Exam: ATRAUMATIC, NORMOCEPHALIC - Eye Exam Eye Exam: Normal appearance - ENT Exam ENT Exam: Mucous Membranes Moist - Neck Exam Neck Exam: Normal Inspection - Respiratory Exam Respiratory Exam: Decreased Breath Sounds - Cardiovascular Exam Cardiovascular Exam: REGULAR RHYTHM Assessment and Plan (1) Acute exacerbation of chronic obstructive airways disease Assessment & Plan: Continue prednisone, nebulizer treatment, BiPAP at night are as needed Need coloscopy once patient discharged home Status: Acute
--- NOTE | 2017-10-26 23:49 | CP.PCM.PN ---
Subjective - Date & Time of Evaluation Date of Evaluation: 10/26/17 Time of Evaluation: 18:30 Objective - Vital Signs/Intake and Output Vital Signs (last 24 hours): Temp Pulse Resp BP Pulse Ox 97.8 F 99 H 20 112/69 97 10/26/17 15:20 10/26/17 15:20 10/26/17 15:20 10/26/17 15:20 10/26/17 15:20 Intake and Output: 10/26/17 10/27/17 18:59 06:59 Intake Total 300 Balance 300 - Medications Medications: Current Medications Albuterol/Ipratropium (Duoneb 3 Mg/0.5 Mg (3 Ml) Ud) 3 ml INH RQ6 [facility] Last Admin: 10/26/17 20:45 Dose: 3 ml Alprazolam (Xanax) 0.5 mg PO Q12 [facility] Stop: 11/01/17 22:01 Last Admin: 10/26/17 22:22 Dose: 0.5 mg Budesonide (Pulmicort Respules) 1 mg IH RQ12 [facility] Last Admin: 10/26/17 20:45 Dose: 0.5 mg Enoxaparin Sodium (Lovenox) 40 mg SC DAILY [facility] Last Admin: 10/26/17 11:01 Dose: 40 mg Guaifenesin (Robitussin) 200 mg PO Q4H [facility] Last Admin: 10/26/17 20:45 Dose: 200 mg Insulin Human Regular (Novolin R) 0 unit SC [facility] PRN Reason: Protocol Last Admin: 10/26/17 22:24 Dose: Not Given Metformin HCl (Glucophage) 1,000 mg PO BID [facility] Last Admin: 10/26/17 17:56 Dose: 1,000 mg Montelukast Sodium (Singulair) 10 mg PO HS [facility] Last Admin: 10/26/17 22:22 Dose: 10 mg Prednisone (Prednisone Tab) 10 mg PO DAILY [facility] Last Admin: 10/26/17 11:20 Dose: 10 mg Pregabalin (Lyrica) 50 mg PO BID [facility] Last Admin: 10/26/17 17:57 Dose: 50 mg Roflumilast (Daliresp) 500 mcg PO DAILY [facility] Last Admin: 10/26/17 11:02 Dose: 500 mcg Fluticasone/Salmeterol (Advair Diskus 250/50) 1 puff INH RBID [facility] Last Admin: 10/26/17 20:45 Dose: 1 inhaler - Labs Labs: 10/26/17 09:01 10/26/17 09:01
[2017-10-27] MEDS: guaiFENesin 200 mg/10 ml Syrup UD PO SCH ×6 (00:33→20:41)
[2017-10-27] MEDS: Albuterol-Ipratrop 3 mg / 0.5 (3 ml) UD INH SCH ×4 (01:49→19:58)
[2017-10-27] MEDS: (Novolin R) Insulin Human Regular 100 units/ml vial SC SCH ×4 (07:30→22:29)
[2017-10-27] MEDS: Budesonide 0.5 mg/2 ml Inhal Susp UD IH SCH ×2 (08:13→19:58)
[2017-10-27] MEDS: Fluticasone-Salmeterol 250-50mcg Diskus INH SCH ×2 (08:14→19:00)
[2017-10-27 08:38] LABS: RBC 4.69 Mil/uL (4.40-5.90)
[2017-10-27 08:44] LABS: BASO # 0.1 K/uL (0.0-0.2); BASO % 1.4 % (0.0-2.0); EOS # 0.5 K/uL (0.0-0.7); EOS % 6.1 % (0.0-4.0); LYMPH # 2.1 K/uL (1.0-4.3); LYMPH % 26.6 % (20.0-40.0); MEAN CELL VOLUME 71.6 fL (80.0-94.0); MEAN CORPUSCULAR HEMOGLOBIN 23.6 pg (27.0-31.0); MEAN CORPUSCULAR HGB CONC 32.9 g/dL (33.0-37.0); MEAN PLATELET VOLUME 8.8 fL (7.2-11.7); MONO # 0.7 K/uL (0.0-0.8); MONO % 8.6 % (0.0-10.0); NEUT # 4.6 K/uL (1.8-7.0); NEUT % 57.3 % (50.0-75.0); RED CELL DISTRIBUTION WIDTH 23.9 % (11.5-14.5)
[2017-10-27 08:58] LABS: ALB/GLOB RATIO 1.3 (1.0-2.1); ALBUMIN 3.9 g/dL (3.5-5.0); ALT/SGPT 57 U/L (21-72); AST/SGOT 27 U/L (17-59); BLOOD UREA NITROGEN 8 mg/dL (9-20); CALCIUM 9.2 mg/dl (8.6-10.4); GFR AFRICAN-AMERICAN > 60; GFR NON-AFRICAN AMERICAN > 60
[2017-10-27] MEDS: Enoxaparin 40 mg Syringe SC SCH (09:36)
--- NOTE | 2017-10-27 20:27 | CP.PCM.PN ---
Subjective - Date & Time of Evaluation Date of Evaluation: 10/27/17 Time of Evaluation: 17:25 - Subjective Subjective: the patient seen and examined. Complaining of shortness of breath On BiPAP Started on IV Solu-Medrol Continue nebulizer treatment Objective - Vital Signs/Intake and Output Vital Signs (last 24 hours): Temp Pulse Resp BP Pulse Ox 98.0 F 109 H 20 122/64 95 10/27/17 15:40 10/27/17 15:40 10/27/17 15:40 10/27/17 15:40 10/27/17 15:40 - Medications Medications: Current Medications Albuterol/Ipratropium (Duoneb 3 Mg/0.5 Mg (3 Ml) Ud) 3 ml INH RQ6 [facility] Last Admin: 10/27/17 19:58 Dose: 3 ml Alprazolam (Xanax) 0.5 mg PO Q12 [facility] Stop: 11/01/17 22:01 Last Admin: 10/27/17 09:35 Dose: 0.5 mg Budesonide (Pulmicort Respules) 1 mg IH RQ12 [facility] Last Admin: 10/27/17 19:58 Dose: 0.5 mg Enoxaparin Sodium (Lovenox) 40 mg SC DAILY [facility] Last Admin: 10/27/17 09:36 Dose: 40 mg Guaifenesin (Robitussin) 200 mg PO Q4H [facility] Last Admin: 10/27/17 16:58 Dose: 200 mg Insulin Human Regular (Novolin R) 0 unit SC ACHS [facility] PRN Reason: Protocol Last Admin: 10/27/17 17:30 Dose: 2 unit Metformin HCl (Glucophage) 1,000 mg PO BID [facility] Last Admin: 10/27/17 18:08 Dose: 1,000 mg Methylprednisolone (Solu-Medrol) 40 mg IVP Q6 [facility] Montelukast Sodium (Singulair) 10 mg PO HS [facility] Last Admin: 10/26/17 22:22 Dose: 10 mg Pregabalin (Lyrica) 50 mg PO BID [facility] Last Admin: 10/27/17 18:08 Dose: 50 mg Roflumilast (Daliresp) 500 mcg PO DAILY [facility] Last Admin: 10/27/17 09:35 Dose: 500 mcg - Labs Labs: 10/27/17 08:34 10/27/17 08:34 Assessment and Plan (1) Acute exacerbation of chronic obstructive airways disease Status: Acute
[2017-10-27] MEDS: MethylPREDNISolone 40 mg Vial IVP SCH (20:41)
[2017-10-28] MEDS: guaiFENesin 200 mg/10 ml Syrup UD PO SCH ×6 (00:26→20:25)
[2017-10-28] MEDS: Albuterol-Ipratrop 3 mg / 0.5 (3 ml) UD INH SCH ×4 (01:39→20:13)
[2017-10-28] MEDS: MethylPREDNISolone 40 mg Vial IVP SCH ×4 (02:56→20:25)
[2017-10-28] MEDS: Budesonide 0.5 mg/2 ml Inhal Susp UD IH SCH ×2 (08:03→20:13)
[2017-10-28] MEDS: (Novolin R) Insulin Human Regular 100 units/ml vial SC SCH ×4 (08:15→21:34)
[2017-10-28] MEDS: Enoxaparin 40 mg Syringe SC SCH (10:43)
--- NOTE | 2017-10-28 14:37 | CP.PCM.PN ---
Subjective - Date & Time of Evaluation Date of Evaluation: 10/27/17 Time of Evaluation: 18:35 Objective - Vital Signs/Intake and Output Vital Signs (last 24 hours): Temp Pulse Resp BP Pulse Ox 97.4 F L 102 H 20 124/72 98 10/28/17 08:59 10/28/17 08:59 10/28/17 08:59 10/28/17 08:59 10/28/17 08:59 Intake and Output: 10/28/17 10/28/17 06:59 18:59 Intake Total 480 Balance 480 - Medications Medications: Current Medications Albuterol/Ipratropium (Duoneb 3 Mg/0.5 Mg (3 Ml) Ud) 3 ml INH RQ6 [facility] Last Admin: 10/28/17 13:18 Dose: 3 ml Alprazolam (Xanax) 0.5 mg PO Q12 [facility] Stop: 11/01/17 22:01 Last Admin: 10/28/17 10:35 Dose: 0.5 mg Budesonide (Pulmicort Respules) 1 mg IH RQ12 [facility] Last Admin: 10/28/17 08:03 Dose: 1 mg Enoxaparin Sodium (Lovenox) 40 mg SC DAILY [facility] Last Admin: 10/28/17 10:43 Dose: 40 mg Guaifenesin (Robitussin) 200 mg PO Q4H [facility] Last Admin: 10/28/17 12:30 Dose: 200 mg Insulin Human Regular (Novolin R) 0 unit SC [facility] PRN Reason: Protocol Last Admin: 10/28/17 12:25 Dose: 2 unit Metformin HCl (Glucophage) 500 mg PO BID [facility] Last Admin: 10/28/17 10:36 Dose: 500 mg Methylprednisolone (Solu-Medrol) 40 mg IVP Q6H [facility] Last Admin: 10/28/17 13:53 Dose: 40 mg Montelukast Sodium (Singulair) 10 mg PO HS [facility] Last Admin: 10/27/17 22:29 Dose: 10 mg Pregabalin (Lyrica) 50 mg PO BID [facility] Last Admin: 10/28/17 10:37 Dose: 50 mg Roflumilast (Daliresp) 500 mcg PO DAILY [facility] Last Admin: 10/28/17 10:37 Dose: 500 mcg - Labs Labs: 10/27/17 08:34 10/27/17 08:34
--- NOTE | 2017-10-28 14:41 | CP.PCM.PN ---
Subjective - Date & Time of Evaluation Date of Evaluation: 10/28/17 Time of Evaluation: 18:00 Objective - Vital Signs/Intake and Output Vital Signs (last 24 hours): Temp Pulse Resp BP Pulse Ox 97.4 F L 102 H 20 124/72 98 10/28/17 08:59 10/28/17 08:59 10/28/17 08:59 10/28/17 08:59 10/28/17 08:59 Intake and Output: 10/28/17 10/28/17 06:59 18:59 Intake Total 480 Balance 480 - Medications Medications: Current Medications Albuterol/Ipratropium (Duoneb 3 Mg/0.5 Mg (3 Ml) Ud) 3 ml INH RQ6 [facility] Last Admin: 10/28/17 13:18 Dose: 3 ml Alprazolam (Xanax) 0.5 mg PO Q12 [facility] Stop: 11/01/17 22:01 Last Admin: 10/28/17 10:35 Dose: 0.5 mg Budesonide (Pulmicort Respules) 1 mg IH RQ12 [facility] Last Admin: 10/28/17 08:03 Dose: 1 mg Enoxaparin Sodium (Lovenox) 40 mg SC DAILY [facility] Last Admin: 10/28/17 10:43 Dose: 40 mg Guaifenesin (Robitussin) 200 mg PO Q4H [facility] Last Admin: 10/28/17 12:30 Dose: 200 mg Insulin Human Regular (Novolin R) [address] [facility] PRN Reason: Protocol Last Admin: 10/28/17 12:25 Dose: 2 unit Metformin HCl (Glucophage) 500 mg PO BID [facility] Last Admin: 10/28/17 10:36 Dose: 500 mg Methylprednisolone (Solu-Medrol) 40 mg IVP Q6H [facility] Last Admin: 10/28/17 13:53 Dose: 40 mg Montelukast Sodium (Singulair) 10 mg PO HS [facility] Last Admin: 10/27/17 22:29 Dose: 10 mg Pregabalin (Lyrica) 50 mg PO BID [facility] Last Admin: 10/28/17 10:37 Dose: 50 mg Roflumilast (Daliresp) 500 mcg PO DAILY [facility] Last Admin: 10/28/17 10:37 Dose: 500 mcg - Labs Labs: 10/27/17 08:34 10/27/17 08:34
[2017-10-29] MEDS: guaiFENesin 200 mg/10 ml Syrup UD PO SCH ×6 (00:12→20:44)
[2017-10-29] MEDS: Albuterol-Ipratrop 3 mg / 0.5 (3 ml) UD INH SCH ×4 (01:49→19:36)
[2017-10-29] MEDS: MethylPREDNISolone 40 mg Vial IVP SCH ×4 (02:10→20:44)
[2017-10-29] MEDS: Budesonide 0.5 mg/2 ml Inhal Susp UD IH SCH ×2 (08:10→19:36)
[2017-10-29] MEDS: (Novolin R) Insulin Human Regular 100 units/ml vial SC SCH ×4 (08:55→23:02)
[2017-10-29] MEDS: Enoxaparin 40 mg Syringe SC SCH (10:47)
[2017-10-29 11:01] LABS: BASO # 0.1 K/uL (0.0-0.2); BASO % 0.3 % (0.0-2.0); HEMOGLOBIN 11.3 g/dL (12.0-18.0); LYMPH # 0.7 K/uL (1.0-4.3); LYMPH % 4.5 % (20.0-40.0); MEAN CELL VOLUME 71.9 fL (80.0-94.0); MEAN PLATELET VOLUME 8.9 fL (7.2-11.7); MONO # 0.7 K/uL (0.0-0.8); MONO % 4.5 % (0.0-10.0); NEUT # 13.9 K/uL (1.8-7.0); NEUT % 90.7 % (50.0-75.0); PLATELET COUNT 311 K/uL (130-400); RBC 4.92 Mil/uL (4.40-5.90); RED CELL DISTRIBUTION WIDTH 23.6 % (11.5-14.5)
[2017-10-29 11:03] LABS: WHITE BLOOD COUNT 15.4 K/uL (4.8-10.8)
[2017-10-29 11:23] LABS: ALB/GLOB RATIO 1.3 (1.0-2.1); ALBUMIN 4.4 g/dL (3.5-5.0); ALT/SGPT 46 U/L (21-72); AST/SGOT 29 U/L (17-59); BLOOD UREA NITROGEN 13 mg/dL (9-20); CALCIUM 9.7 mg/dl (8.6-10.4); GFR AFRICAN-AMERICAN > 60; GFR NON-AFRICAN AMERICAN > 60
--- NOTE | 2017-10-29 12:35 | CP.PCM.PN ---
Subjective - Date & Time of Evaluation Date of Evaluation: 10/29/17 Time of Evaluation: 12:35 - Subjective Subjective: PATIENT WAS ADMITTED FOR COPD EXACERBATION AAOX3 ; SITTING AT THE BEDSIDE ON 2 L NASAL CANNULA DENIES CHEST PAIN OR SOB NO SIGN OF DISTRESS NOTED Objective - Vital Signs/Intake and Output Vital Signs (last 24 hours): Temp Pulse Resp BP Pulse Ox 97.5 F L 92 H 19 117/75 100 10/29/17 07:40 10/29/17 07:40 10/29/17 07:40 10/29/17 07:40 10/28/17 23:50 Intake and Output: 10/29/17 10/29/17 06:59 18:59 Intake Total 720 Output Total 250 Balance 470 - Medications Medications: Current Medications Albuterol/Ipratropium (Duoneb 3 Mg/0.5 Mg (3 Ml) Ud) 3 ml INH RQ6 [facility] Last Admin: 10/29/17 08:10 Dose: 3 ml Alprazolam (Xanax) 0.5 mg PO Q12 [facility] Stop: 11/01/17 22:01 Last Admin: 10/29/17 10:46 Dose: 0.5 mg Budesonide (Pulmicort Respules) 1 mg IH RQ12 [facility] Last Admin: 10/29/17 08:10 Dose: 1 mg Enoxaparin Sodium (Lovenox) 40 mg SC DAILY [facility] Last Admin: 10/29/17 10:47 Dose: 40 mg Guaifenesin (Robitussin) 200 mg PO Q4H [facility] Last Admin: 10/29/17 08:59 Dose: 200 mg Insulin Human Regular (Novolin R) 0 unit SC ACHS [facility] PRN Reason: Protocol Last Admin: 10/29/17 08:55 Dose: 3 unit Metformin HCl (Glucophage) 500 mg PO BID [facility] Last Admin: 10/29/17 10:46 Dose: 500 mg Methylprednisolone (Solu-Medrol) 40 mg IVP Q6H [facility] Last Admin: 10/29/17 08:59 Dose: 40 mg Montelukast Sodium (Singulair) 10 mg PO HS [facility] Last Admin: 10/28/17 21:34 Dose: 10 mg Pregabalin (Lyrica) 50 mg PO BID [facility] Last Admin: 10/29/17 10:46 Dose: 50 mg Roflumilast (Daliresp) 500 mcg PO DAILY [facility] Last Admin: 10/29/17 11:23 Dose: 500 mcg - Labs Labs: 10/29/17 10:49 10/29/17 10:49 Assessment and Plan - Assessment and Plan (Free Text) Assessment: PATIENT SEEN AND EXAMINED AT THE BEDSIDE LUNG SOUND IMPROVING PLAN IS FOR COLONOSCOPY OUT PATIENT PER DR BRANDT DISCUSS WITH DR REDDY AND DR ZHANG WHO AGREE AND CLEAR PATIENT FOR DC FOLLOW UP WITH DR ZHANG IN 1-2 WEEK AT HIS OFFICE --CALL FOR APPOINTMENT FOLLOW UP WITH DR REDDY AT HIS OFFICE IN 1-2 WEEK ---CALL FOR APPOINTMENT FOLLOW UP WITH DR BRANDT THIS WEEK AT HIS OFFICE --CALL FOR APPOINTMENT CONTINUE ALL YOUR HOME MEDICATION ORDER NEW PRESCRIPTION GIVEN PREDNISONE TAPER 40 MG PO DIALY FOR 3 DAYS THEN 30 MG PO DILAY FOR 3 DAYS THEN 20 MG PO DAILY FOR 3 DAYS THEN 10 MG PO DAILY CONTINOUSLY ACTIVITY TOLERATED CALL DR REDDY OR DR ZHANG OR GO TO THE EMERGENCY ROOM IF SYMPTOMS RETURN OR WORSENING DISCUSS WITH PATIENT AND PATIENT'S WHO AGREE AND VERBALIZED UNDERSTANDING
[2017-10-29 12:40] LABS: BANDS 1 % (0-2); LYMPHOCYTE 4 % (20-40); MONOCYTE 3 % (0-10); NEUTROPHIL 92 % (50-75); TOTAL CELLS COUNTED 100
[2017-10-29 12:41] LABS: ANISOCYTOSIS SLIGHT; HYPOCHROMIC SLIGHT; MICROCYTOSIS SLIGHT; PLATELET ESTIMATE NORMAL (NORMAL); POIKILOCYTOSIS SLIGHT; TEARDROP CELLS SLIGHT
[2017-10-29 12:43] LABS: OVALOCYTES SLIGHT
--- NOTE | 2017-10-29 13:45 | CP.PCM.PN ---
Subjective - Date & Time of Evaluation Date of Evaluation: 10/29/17 Time of Evaluation: 07:25 - Subjective Subjective: Patient seen and examined at bedside today Resting in mild respiratory distress On supplemental oxygen Reports slowly improving wheezing, shortness of breath Reports feeling better than previous days Assessment/Plan: 1. COPD exacerbation -Most recent chest XR on 10/25: Biapical pleural thickening with upper lobe granulomatous changes. Bibasilar breast and nipple shadows. Small nodular density at the right lung base laterally may represent nipple shadow. -Continue nebulizer treatment -Continue IV Solumedrol -Continue Pulmicort -Contniue Singulair -Continue Daliresp -Continue Robitussin -BIPAP as needed Objective - Vital Signs/Intake and Output Vital Signs (last 24 hours): Temp Pulse Resp BP Pulse Ox 97.5 F L 92 H 19 117/75 100 10/29/17 07:40 10/29/17 07:40 10/29/17 07:40 10/29/17 07:40 10/28/17 23:50 Intake and Output: 10/29/17 10/29/17 06:59 18:59 Intake Total 720 Output Total 250 Balance 470 - Medications Medications: Current Medications Albuterol/Ipratropium (Duoneb 3 Mg/0.5 Mg (3 Ml) Ud) 3 ml INH RQ6 [facility] Last Admin: 10/29/17 13:17 Dose: 3 ml Alprazolam (Xanax) 0.5 mg PO Q12 [facility] Stop: 11/01/17 22:01 Last Admin: 10/29/17 10:46 Dose: 0.5 mg Budesonide (Pulmicort Respules) 1 mg IH RQ12 [facility] Last Admin: 10/29/17 08:10 Dose: 1 mg Enoxaparin Sodium (Lovenox) 40 mg SC DAILY [facility] Last Admin: 10/29/17 10:47 Dose: 40 mg Guaifenesin (Robitussin) 200 mg PO Q4H [facility] Last Admin: 10/29/17 08:59 Dose: 200 mg Insulin Human Regular (Novolin R) 0 unit SC ACHS [facility] PRN Reason: Protocol Last Admin: 10/29/17 08:55 Dose: 3 unit Metformin HCl (Glucophage) 500 mg PO BID [facility] Last Admin: 10/29/17 10:46 Dose: 500 mg Methylprednisolone (Solu-Medrol) 40 mg IVP Q6H [facility] Last Admin: 10/29/17 08:59 Dose: 40 mg Montelukast Sodium (Singulair) 10 mg PO HS [facility] Last Admin: 10/28/17 21:34 Dose: 10 mg Pregabalin (Lyrica) 50 mg PO BID [facility] Last Admin: 10/29/17 10:46 Dose: 50 mg Roflumilast (Daliresp) 500 mcg PO DAILY [facility] Last Admin: 10/29/17 11:23 Dose: 500 mcg - Labs Labs: 10/29/17 10:49 10/29/17 10:49 Assessment and Plan (1) Acute exacerbation of chronic obstructive airways disease Status: Acute
--- NOTE | 2017-10-29 23:32 | CP.PCM.PN ---
Subjective - Date & Time of Evaluation Date of Evaluation: 10/29/17 Time of Evaluation: 19:50 - Subjective Subjective: Pt seen and examined, is feeling better, less cough, less short of breath. Objective - Vital Signs/Intake and Output Vital Signs (last 24 hours): Temp Pulse Resp BP Pulse Ox 97.7 F 110 H 20 123/68 98 10/29/17 15:00 10/29/17 15:00 10/29/17 15:00 10/29/17 15:00 10/29/17 15:00 Intake and Output: 10/29/17 10/30/17 18:59 06:59 Intake Total 400 500 Balance 400 500 - Medications Medications: Current Medications Albuterol/Ipratropium (Duoneb 3 Mg/0.5 Mg (3 Ml) Ud) 3 ml INH RQ6 [facility] Last Admin: 10/29/17 19:36 Dose: 3 ml Alprazolam (Xanax) 0.5 mg PO Q12 [facility] Stop: 11/01/17 22:01 Last Admin: 10/29/17 22:23 Dose: 0.5 mg Budesonide (Pulmicort Respules) 1 mg IH RQ12 [facility] Last Admin: 10/29/17 19:36 Dose: 0.5 mg Enoxaparin Sodium (Lovenox) 40 mg SC DAILY [facility] Last Admin: 10/29/17 10:47 Dose: 40 mg Guaifenesin (Robitussin) 200 mg PO Q4H [facility] Last Admin: 10/29/17 20:44 Dose: 200 mg Insulin Human Regular (Novolin R) 0 unit SC [facility] PRN Reason: Protocol Last Admin: 10/29/17 23:02 Dose: Not Given Metformin HCl (Glucophage) 500 mg PO BID [facility] Last Admin: 10/29/17 17:30 Dose: 500 mg Methylprednisolone (Solu-Medrol) 40 mg IVP Q6H [facility] Last Admin: 10/29/17 20:44 Dose: 40 mg Montelukast Sodium (Singulair) 10 mg PO HS [facility] Last Admin: 10/29/17 22:23 Dose: 10 mg Pregabalin (Lyrica) 50 mg PO BID [facility] Last Admin: 10/29/17 17:31 Dose: 50 mg Roflumilast (Daliresp) 500 mcg PO DAILY [facility] Last Admin: 10/29/17 11:23 Dose: 500 mcg - Labs Labs: 10/29/17 10:49 10/29/17 10:49 - Constitutional Appears: No Acute Distress - Head Exam Head Exam: ATRAUMATIC, NORMAL INSPECTION, NORMOCEPHALIC - Eye Exam Eye Exam: EOMI, Normal appearance, PERRL Pupil Exam: NORMAL ACCOMODATION, PERRL - Respiratory Exam Respiratory Exam: Decreased Breath Sounds, Wheezes - Cardiovascular Exam Cardiovascular Exam: REGULAR RHYTHM, +S1, +S2. absent: Murmur Assessment and Plan (1) COPD (chronic obstructive pulmonary disease) Status: Acute (2) Acute bronchitis with asthma with acute exacerbation Status: Acute (3) Allergic rhinitis Status: Chronic (4) CHF (congestive heart failure) Status: Chronic (5) Steroid-induced diabetes Status: Chronic
[2017-10-30] MEDS: guaiFENesin 200 mg/10 ml Syrup UD PO SCH ×4 (00:05→12:37)
[2017-10-30 00:24] VITALS: O2SAT 95
[2017-10-30] MEDS: Albuterol-Ipratrop 3 mg / 0.5 (3 ml) UD INH SCH ×3 (01:24→14:15)
[2017-10-30] MEDS: MethylPREDNISolone 40 mg Vial IVP SCH ×3 (02:43→14:57)
[2017-10-30 07:58] VITALS: BP 131/82; RESP 15; TEMP 97.4
[2017-10-30] MEDS: (Novolin R) Insulin Human Regular 100 units/ml vial SC SCH ×2 (08:14→12:37)
[2017-10-30] MEDS: Budesonide 0.5 mg/2 ml Inhal Susp UD IH SCH (08:33)
[2017-10-30 08:40] LABS: BASO # 0.1 K/uL (0.0-0.2); BASO % 0.5 % (0.0-2.0); HEMOGLOBIN 11.1 g/dL (12.0-18.0); LYMPH # 0.8 K/uL (1.0-4.3); LYMPH % 6.6 % (20.0-40.0); MEAN CELL VOLUME 72.1 fL (80.0-94.0); MEAN CORPUSCULAR HEMOGLOBIN 23.1 pg (27.0-31.0); MEAN CORPUSCULAR HGB CONC 32.1 g/dL (33.0-37.0); MEAN PLATELET VOLUME 8.5 fL (7.2-11.7); MONO # 0.4 K/uL (0.0-0.8); MONO % 3.1 % (0.0-10.0); NEUT # 11.3 K/uL (1.8-7.0); NEUT % 89.8 % (50.0-75.0); PLATELET COUNT 308 K/uL (130-400); RBC 4.79 Mil/uL (4.40-5.90); RED CELL DISTRIBUTION WIDTH 23.5 % (11.5-14.5); WHITE BLOOD COUNT 12.6 K/uL (4.8-10.8)
[2017-10-30 08:55] LABS: ALB/GLOB RATIO 1.4 (1.0-2.1); ALBUMIN 4.3 g/dL (3.5-5.0); ALT/SGPT 44 U/L (21-72); AST/SGOT 26 U/L (17-59); BLOOD UREA NITROGEN 15 mg/dL (9-20); CALCIUM 9.4 mg/dl (8.6-10.4); GFR AFRICAN-AMERICAN > 60; GFR NON-AFRICAN AMERICAN > 60
[2017-10-30 09:20] LABS: BANDS 3 % (0-2); LYMPHOCYTE 9 % (20-40); TOTAL CELLS COUNTED 100
[2017-10-30 09:21] LABS: ANISOCYTOSIS MODERATE; MONOCYTE 1 % (0-10); NEUTROPHIL 87 % (50-75); PLATELET ESTIMATE NORMAL (NORMAL)
[2017-10-30 09:22] LABS: HYPOCHROMIC SLIGHT; MICROCYTOSIS MODERATE; POLYCHROMIC SLIGHT
[2017-10-30 09:27] LABS: OVALOCYTES MODERATE
[2017-10-30 14:18] VITALS: PULSE 97
[2017-10-30] MEDS: Enoxaparin 40 mg Syringe SC SCH (14:57)
--- NOTE | 2017-10-31 00:31 | CP.PCM.DIS ---
Provider - Provider Date of Admission: 10/25/17 08:52 Attending physician: Hal Garcia MD Time Spent in preparation of Discharge (in minutes): 60 Diagnosis - Discharge Diagnosis (1) COPD (chronic obstructive pulmonary disease) Status: Acute (2) Acute bronchitis with asthma with acute exacerbation Status: Acute (3) Allergic rhinitis Status: Chronic Priority: Medium (4) CHF (congestive heart failure) Status: Chronic (5) Steroid-induced diabetes Status: Chronic Hospital Course - Lab Results Lab Results: Micro Results 10/25/17 07:35 Blood Blood Culture - Final NO GROWTH AFTER 5 DAYS 10/25/17 07:35 Blood Gram Stain - Final TEST NOT PERFORMED 10/25/17 08:15 Blood Blood Culture - Final NO GROWTH AFTER 5 DAYS 10/25/17 08:15 Blood Gram Stain - Final TEST NOT PERFORMED Most Recent Lab Values WBC 12.6 K/uL (4.8-10.8) H 10/30/17 08:36 RBC 4.79 Mil/uL (4.40-5.90) 10/30/17 08:36 Hgb 11.1 g/dL (12.0-18.0) L 10/30/17 08:36 Hct 34.5 % (35.0-51.0) L 10/30/17 08:36 MCV 72.1 fL (80.0-94.0) L 10/30/17 08:36 MCH 23.1 pg (27.0-31.0) L 10/30/17 08:36 MCHC 32.1 g/dL (33.0-37.0) L 10/30/17 08:36 RDW 23.5 % (11.5-14.5) H 10/30/17 08:36 Plt Count 308 K/uL (130-400) 10/30/17 08:36 MPV 8.5 fL (7.2-11.7) 10/30/17 08:36 Neut % (Auto) 89.8 % (50.0-75.0) H 10/30/17 08:36 Lymph % (Auto) 6.6 % (20.0-40.0) L 10/30/17 08:36 [place] % (Auto) 3.1 % (0.0-10.0) 10/30/17 08:36 Eos % (Auto) 0.0 % (0.0-4.0) 10/30/17 08:36 Baso % (Auto) 0.5 % (0.0-2.0) 10/30/17 08:36 Neut # (Auto) 11.3 K/uL (1.8-7.0) H 10/30/17 08:36 Lymph # (Auto) 0.8 K/uL (1.0-4.3) L 10/30/17 08:36 [place] # (Auto) 0.4 K/uL (0.0-0.8) 10/30/17 08:36 Eos # (Auto) 0.0 K/uL (0.0-0.7) 10/30/17 08:36 Baso # (Auto) 0.1 K/uL (0.0-0.2) 10/30/17 08:36 Neutrophils % (Manual) 87 % (50-75) H 10/30/17 08:36 Band Neutrophils % 3 % (0-2) H 10/30/17 08:36 Lymphocytes % (Manual) 9 % (20-40) L 10/30/17 08:36 Monocytes % (Manual) 1 % (0-10) 10/30/17 08:36 Platelet Estimate Normal (NORMAL) 10/30/17 08:36 Polychromasia Slight 10/30/17 08:36 Hypochromasia (manual) Slight 10/30/17 08:36 Poikilocytosis (manual Slight 10/29/17 10:49 Anisocytosis (manual) Moderate 10/30/17 08:36 Microcytosis (manual) Moderate 10/30/17 08:36 Tear Drop Cells Slight 10/29/17 10:49 Ovalocytes Moderate 10/30/17 08:36 Puncture Site Rra 10/25/17 08:00 pCO2 61 mm/Hg (35-45) H 10/25/17 08:00 pO2 35 mm/Hg (80-100) L* 10/25/17 08:00 HCO3 28.7 mmol/L (21-28) H 10/25/17 08:00 ABG pH 7.34 (7.35-7.45) L 10/25/17 08:00 ABG Total CO2 34.8 mmol/L (22-28) H 10/25/17 08:00 ABG O2 Saturation 71.2 % (95-98) L 10/25/17 08:00 ABG Base Excess 5.6 mmol/L (-2.0-3.0) H 10/25/17 08:00 ABG Hemoglobin 11.2 g/dL (11.7-17.4) L 10/25/17 08:00 ABG Carboxyhemoglobin 2.0 % (0.5-1.5) H 10/25/17 08:00 POC ABG HHb (Measured) 27.9 % (0.0-5.0) H 10/25/17 08:00 ABG Methemoglobin 1.1 % (0.0-3.0) 10/25/17 08:00 Jesus Test Na 10/25/17 08:00 A-a O2 Difference 174.0 mm/Hg 10/25/17 08:00 Respiratory Index 5.0 10/25/17 08:00 Hgb O2 Saturation 68.9 % (95.0-98.0) L 10/25/17 08:00 Vent Mode Bipap 10/25/17 08:00 Mechanical Rate 12 10/25/17 08:00 FiO2 40.0 % 10/25/17 08:00 Inspiratory BiPAP 12 10/25/17 08:00 Expiratory BiPAP 6 10/25/17 08:00 Crit Value Called To Leyla campos nurse 10/25/17 08:00 Crit Value Called By Jaye leal 10/25/17 08:00 Crit Value Read Back Y 10/25/17 08:00 Blood Gas Notified Time 805 10/25/17 08:00 Sodium 136 mmol/L (132-148) 10/30/17 08:36 Potassium 4.2 mmol/L (3.6-5.2) 10/30/17 08:36 Chloride 96 mmol/L (98-107) L 10/30/17 08:36 Carbon Dioxide 25 mmol/L (22-30) 10/30/17 08:36 Anion Gap 20 (10-20) 10/30/17 08:36 BUN 15 mg/dL (9-20) 10/30/17 08:36 Creatinine 0.6 mg/dL (0.8-1.5) L 10/30/17 08:36 Est GFR ( Amer) > 60 10/30/17 08:36 Est GFR (Non-Af Amer) > 60 10/30/17 08:36 POC Glucose (mg/dL) 249 mg/dL (65-110) H 10/30/17 11:58 Random Glucose 309 mg/dL (75-110) H 10/30/17 08:36 Lactic Acid 3.1 mmol/L (0.7-2.1) H 10/25/17 08:20 Calcium 9.4 mg/dl (8.6-10.4) 10/30/17 08:36 Total Bilirubin 0.3 mg/dL (0.2-1.3) 10/30/17 08:36 AST 26 U/L (17-59) 10/30/17 08:36 ALT 44 U/L (21-72) 10/30/17 08:36 Alkaline Phosphatase 127 U/L (38-126) H 10/30/17 08:36 Troponin I < 0.0120 ng/mL (0.00-0.120) 10/25/17 07:56 NT-Pro-B Natriuret Pep 24.5 pg/mL (0-900) 10/25/17 07:56 Total Protein 7.3 g/dL (6.3-8.3) 10/30/17 08:36 Albumin 4.3 g/dL (3.5-5.0) 10/30/17 08:36 Globulin 3.0 gm/dL (2.2-3.9) 10/30/17 08:36 Albumin/Globulin Ratio 1.4 (1.0-2.1) 10/30/17 08:36 Influenza Typ A,B (EIA) Negative for flu a/b (NEGATIVE) 10/25/17 07:34 - Hospital Course Hospital Course: Pt is stable for discharge less cough, less short of breath Discharge Exam - Head Exam Head Exam: ATRAUMATIC, NORMAL INSPECTION, NORMOCEPHALIC - Eye Exam Eye Exam: EOMI, Normal appearance, PERRL Pupil Exam: NORMAL ACCOMODATION, PERRL - ENT Exam ENT Exam: Mucous Membranes Moist - Cardiovascular Exam Cardiovascular Exam: REGULAR RHYTHM - GI/Abdominal Exam GI & Abdominal Exam: Normal Bowel Sounds - Rectal Exam Rectal Exam: Deferred Discharge Plan - Discharge Medications Prescriptions: predniSONE [predniSONE Tab] 10 mg PO DAILY #50 tab - Follow Up Plan Condition: GUARDED Disposition: HOME/ ROUTINE Instructions: Type 2 Diabetes, Heart Failure, Adult, Exacerbation of COPD (DC) , Prednisone Additional Instructions: FOLLOW UP WITH DR GARCIA IN 1-2 WEEK AT HIS OFFICE --CALL FOR APPOINTMENT FOLLOW UP WITH DR NUNO AT HIS OFFICE IN 1-2 WEEK ---CALL FOR APPOINTMENT FOLLOW UP WITH DR BLACK THIS WEEK AT HIS OFFICE --CALL FOR APPOINTMENT CONTINUE ALL YOUR HOME MEDICATION ORDER NEW PRESCRIPTION GIVEN PREDNISONE TAPER 40 MG PO DIALY FOR 3 DAYS THEN 30 MG PO DILAY FOR 3 DAYS THEN 20 MG PO DAILY FOR 3 DAYS THEN 10 MG PO DAILY CONTINOUSLY ACTIVITY TOLERATED CALL DR NUNO OR DR GARCIA OR GO TO THE EMERGENCY ROOM IF SYMPTOMS RETURN OR WORSENING Referrals: Ralf Nuno MD [Staff Provider] - Adrián Black MD [Staff Provider] - Hal Garcia MD [Staff Provider] -
[2017-10-31] MEDS ORDERED: Enoxaparin 60 mg Syringe SC SCH (10:00)
--- NOTE | 2017-10-31 19:01 | CARD ---
APPROVED REPORT EKG Measurement Heart [id number] HI [id number] <Conclusion> Sinus tachycardia Otherwise normal ECG
--- NOTE | 2017-10-31 19:12 | CARD ---
APPROVED REPORT EKG Measurement Heart [id number] [id number] [id number] <Conclusion> Sinus tachycardia Rightward axis Borderline ECG
== END 2017-10-30 14:27 | disposition home or self-care (01) | DRG 191 ==
LOC: C.ER 07:12 → C.9E 08:52 → C.5S 09:53
PROVIDERS: ADMIT Internal Medicine; ATTEND Internal Medicine
DX: J44.0 Chronic obstructive pulmonary disease with (acute) lower respiratory infection (principal); J44.1 Chronic obstructive pulmonary disease with (acute) exacerbation; J20.9 Acute bronchitis, unspecified; J45.901 Unspecified asthma with (acute) exacerbation; E09.22 Drug or chemical induced diabetes mellitus with diabetic chronic kidney disease; I13.0 Hypertensive heart and chronic kidney disease with heart failure and stage 1 through stage 4 chronic kidney disease, or unspecified chronic kidney disease; I50.9 Heart failure, unspecified; N18.9 Chronic kidney disease, unspecified; G47.30 Sleep apnea, unspecified; E78.00 Pure hypercholesterolemia, unspecified; Z87.01 Personal history of pneumonia (recurrent); Z87.442 Personal history of urinary calculi; Z87.891 Personal history of nicotine dependence

== ENCOUNTER 2017-11-07 08:34 | Day surgery (SDC) | payer MEDICARE, BC ==
[2017-11-06 12:54] VITALS: BMI 24.2
[2017-11-07] MEDS ORDERED: Lactated Ringer's 500 ML IV ONE (10:32)
--- NOTE | 2017-11-07 10:34 | CP.SDSHP ---
Same Day Surgery H & P - History Proposed Procedure: colonoscopy Pre-Op Diagnosis: h/o colon cancer - Previous Medical/Surgical History Pulmonary: Emphysema/COPD Endocrine/Metabolic: Diabetes - Allergies Allergies: Allergies acetaminophen [From Tylenol] Allergy (Verified 11/07/17 09:01) RASH FISH Allergy (Verified 11/07/17 09:01) SWELLING shrimp Allergy (Verified 11/07/17 09:01) SHORTNESS OF BREATH IV dye Allergy (Severe, Uncoded 11/07/17 09:01) ANAPHYLAXIS - Physical Exam General Appearance: NAD Vital Signs: Vital Signs 11/07/17 09:05 Temperature 98.0 F Pulse Rate 80 Respiratory 20 Rate Blood Pressure 140/90 O2 Sat by Pulse 97 Oximetry Mental Status: Alert & Oriented x3 Neuro: WNL Heart: WNL Lungs: WNL GI: WNL - {Optional Preform as Required} Abdomen: WNL - Impression Pt. Evaluated Today:Candidate for Anesthesia & Procedure: Yes - Date & Time Date: 11/07/17 Time: 10:34 Short Stay Discharge - Short Stay Discharge Admitting Diagnosis/Reason for Visit: ENCOUNTER FOR SCREENING FOR MALIGNANT NEOPLASM OF Disposition: HOME/ ROUTINE
[2017-11-07] MEDS ORDERED: Propofol 10 mg/ml Inj (20 ML) ONE ×2 (10:38)
[2017-11-07] MEDS ORDERED: Ketamine 50 mg/ml Inj (10 ml) ONE (10:38)
[2017-11-07] MEDS ORDERED: Lactated Ringer's 500 ML IV SCH (11:00)
[2017-11-07 11:01] VITALS: TEMP 99.3
[2017-11-07 12:39] VITALS: BP 113/76; PULSE 119; RESP 15; O2SAT 97
== END 2017-11-07 11:50 | disposition home or self-care (01) ==
LOC: C.ENDO 08:34
PROVIDERS: ATTEND Internal Medicine Gastroenterology
DX: Z12.11 Encounter for screening for malignant neoplasm of colon (principal); K64.4 Residual hemorrhoidal skin tags
CPT/HCPCS: 45378; 82948; J2704; J7120

== ENCOUNTER 2017-11-14 15:07 | Inpatient (IN) | payer MEDICARE, BC ==
[2017-11-14 15:09] VITALS: BMI 24.2
--- NOTE | 2017-11-14 15:44 | C.PDOC ---
History Of Present Illness 67 y/o male with history of Chronic CHF, COPD and Steroid induced DM presents to ED with complaints of difficulty breathing, sob, sharp chest pain to left precordium and dry cough for "several days". Patient states after being discharged he was on a prednisone taper for 2 weeks as prescribed then went back to 10mg which was normal dosage daily. On his maintenance dose the respiratory symptoms recurred. Patient states he is compliant with medication and denies leg swelling, arm swelling chest pain or palpitations, fever, chills or any other complaints at this time. Time Seen by Provider: 11/14/17 15:34 Chief Complaint (Nursing): Shortness Of Breath History Per: Patient History/Exam Limitations: no limitations Onset/Duration Of Symptoms: Days Current Symptoms Are (Timing): Still Present Initiating Event: Upper Respiratory Illness Past Medical History Reviewed: Historical Data, Nursing Documentation, Vital Signs Vital Signs: Last Vital Signs Temp 98.5 F 11/14/17 15:17 Pulse 117 H 11/14/17 16:47 Resp 21 11/14/17 16:47 BP 95/65 L 11/14/17 16:47 Pulse Ox 97 11/14/17 16:47 - Medical History PMH: Anemia, Anxiety, Arthritis (Gout), Asthma, Bronchitis, Cardia Arrhythmia ( SVT), CHF, COPD (Emphysema), Diabetes, Emphysema, HTN, Hypercholesterolemia, Kidney Stones, Pneumonia, Chronic Kidney Disease, Sleep Apnea (ON DALIRESP) Surgical History: No Surg Hx, Endoscopy - [facility] Procedures ASSISTANCE WITH RESPIRATORY VENTILATION, 24-96 HRS, CPAP (08/23/17) ASSISTANCE WITH RESPIRATORY VENTILATION, <24 HRS, CPAP (07/08/16) ASSISTANCE WITH RESPIRATORY VENTILATION, >96 HRS, CPAP (05/08/17) CONTINUOUS INVASIVE MECHANICAL VENTILATION <96 CONSEC HRS (11/29/14) DILATION OF RIGHT URETER WITH INTRALUMINAL DEVICE, ENDO (03/20/17) EXCISION OF SIGMOID COLON, ENDO, DIAGN (03/20/17) EXCISION OF STOMACH, ENDO, DIAGN (03/20/17) EXCISION OF TRANSVERSE COLON, ENDO, DIAGN (03/20/17) INFLUENZA VACCINATION (06/02/14) INSERT ENDOTRACHEAL TUBE (11/29/14) LARYGNOSCOPY AND OTH TRACHEOSCOPY (04/18/15) MEASURE OF CARDIAC SAMPL & PRESSURE, L HEART, PERC APPROACH (12/01/15) NON-INVASIVE MECHANICAL VENTILATION (04/18/15) RESECTION OF SIGMOID COLON, OPEN APPROACH (03/20/17) RESPIRATORY VENTILATION, GREATER THAN 96 CONSECUTIVE HOURS (03/20/17) Family History: States: No Known Family Hx - Social History Hx Tobacco Use: Yes (8 years ppd smoker. quit 1.5 years ago) Hx Alcohol Use: No Hx Substance Use: No (STOPPED ETOH USE 15 YRS AGO) - Immunization History Hx Tetanus Toxoid Vaccination: Yes Hx Influenza Vaccination: Yes Hx Pneumococcal Vaccination: Yes (12/01/2014) Review Of Systems Constitutional: Negative for: Fever, Chills Cardiovascular: Positive for: Chest Pain Respiratory: Positive for: Cough, Shortness of Breath Gastrointestinal: Negative for: Nausea, Vomiting Skin: Negative for: Rash Neurological: Negative for: Weakness, Numbness Physical Exam - Physical Exam Appears: Non-toxic, Other (Uncomfortable. Speaking in 3-4 word sentences) Skin: Warm, Dry, No Rash, Ecchymosis (Spontaneous ecchymosis from chronic prednisone use) Head: Atraumatic, Normacephalic Oral Mucosa: Moist Neck: Normal ROM, Supple Cardiovascular: Rhythm Regular, Other (Tachycardic) Respiratory: Decreased Breath Sounds, No Rales, No Rhonchi, Wheezing ( expiratory and inspiratory ), Other (Tachypneic) Gastrointestinal/Abdominal: Soft, No Tenderness, No Guarding, No Rebound Extremity: No Pedal Edema, Capillary Refill (<2 seconds) Neurological/Psych: Oriented x3, Normal Speech, Normal Motor, Normal Sensation ED Course And Treatment - Laboratory Results Result Diagrams: 11/14/17 15:47 11/14/17 15:47 Lab Interpretation: Abnormal (WBC 13.7 with 90 segs, Glucose 250, Normal BNP and Troponin, D dimer 281, PO2 113, PCO2 43) ECG: Interpreted By Me ECG Rhythm: Sinus Tachycardia ECG Interpretation: Abnormal O2 Sat by Pulse Oximetry: 95 (RA) - Radiology CXR: Viewed By Me, Read By Radiologist CXR Interpretation: Yes: No Acute Disease Reevaluation Time: 17:13 Reassessment Condition: Unchanged - Physician Consult Information Time Consulting Physician Contacted: 17:13 Physician Contacted: Hal Garcia Outcome Of Conversation: Patient well known to him. he will admit for exacerbation COPD. Disposition - Disposition Disposition: HOSPITALIZED Disposition Time: 17:14 Condition: FAIR - POA Present On Arrival: Poor Glycemic Control - Clinical Impression Clinical Impression: COPD exacerbation - Scribe Statement The provider has reviewed the documentation as recorded by the Merryibilya Dorman All medical record entries made by the Merryibe were at my direction and personally dictated by me. I have reviewed the chart and agree that the record accurately reflects my personal performance of the history, physical exam, medical decision making, and the department course for this patient. I have also personally directed, reviewed, and agree with the discharge instructions and disposition.
[2017-11-14 15:54] LABS: BASO # 0.1 K/uL (0.0-0.2); BASO % 0.8 % (0.0-2.0); EOS # 0.1 K/uL (0.0-0.7); EOS % 0.5 % (0.0-4.0); HEMOGLOBIN 11.3 g/dL (12.0-18.0); LYMPH % 7.6 % (20.0-40.0); MEAN CELL VOLUME 71.5 fL (80.0-94.0); MEAN CORPUSCULAR HEMOGLOBIN 23.1 pg (27.0-31.0); MEAN CORPUSCULAR HGB CONC 32.4 g/dL (33.0-37.0); MEAN PLATELET VOLUME 8.7 fL (7.2-11.7); MONO # 0.5 K/uL (0.0-0.8); MONO % 3.5 % (0.0-10.0); NEUT % 87.6 % (50.0-75.0); PLATELET COUNT 275 K/uL (130-400); RBC 4.87 Mil/uL (4.40-5.90); RED CELL DISTRIBUTION WIDTH 20.9 % (11.5-14.5); WHITE BLOOD COUNT 13.7 K/uL (4.8-10.8)
[2017-11-14 16:09] LABS: ABG ALLEN TEST POS; ARTERIAL BLOOD GAS HCO3 27.3 mmol/L (21-28); ARTERIAL BLOOD GAS HEMOGLOBIN 11.3 g/dL (11.7-17.4); ARTERIAL BLOOD GAS O2 SAT 99.4 % (95-98); ARTERIAL BLOOD GAS PCO2 43 mm/Hg (35-45); ARTERIAL BLOOD GAS PH 7.42 (7.35-7.45); ARTERIAL BLOOD GAS PO2 113 mm/Hg (80-100); ARTERIAL BLOOD GAS TCO2 29.2 mmol/L (22-28)
[2017-11-14 16:18] LABS: ALB/GLOB RATIO 1.4 (1.0-2.1); ALBUMIN 4.2 g/dL (3.5-5.0); ALT/SGPT 43 U/L (21-72); AST/SGOT 40 U/L (17-59); BLOOD UREA NITROGEN 11 mg/dL (9-20); CALCIUM 9.3 mg/dl (8.6-10.4); GFR AFRICAN-AMERICAN > 60; GFR NON-AFRICAN AMERICAN > 60
[2017-11-14 16:39] LABS: LYMPHOCYTE 5 % (20-40); MONOCYTE 5 % (0-10); NEUTROPHIL 90 % (50-75); PLATELET ESTIMATE NORMAL (NORMAL); TOTAL CELLS COUNTED 100
[2017-11-14 16:40] LABS: ANISOCYTOSIS SLIGHT; HYPOCHROMIC SLIGHT; OVALOCYTES SLIGHT; POIKILOCYTOSIS SLIGHT; TEARDROP CELLS SLIGHT
[2017-11-14 16:41] LABS: TARGET CELLS SLIGHT
[2017-11-14 16:42] LABS: MICROCYTOSIS SLIGHT
--- NOTE | 2017-11-14 17:03 | RAD ---
PROCEDURE: CHEST RADIOGRAPH, 1 VIEW HISTORY: SOB COMPARISON: 10/25/2017 FINDINGS: LUNGS: No consolidation. Possible minute granulomatous change. Central and upper perihilar emphysematous like changes noted PLEURA: No pneumothorax or pleural fluid seen. CARDIOVASCULAR: Normal. OSSEOUS STRUCTURES: Thoracic spondylosis. VISUALIZED UPPER ABDOMEN: Normal. OTHER FINDINGS: None. IMPRESSION: No worrisome changes seen.
[2017-11-14] MEDS ORDERED: oxyCODONE 5 mg Immediate Release Tab PO PRN (17:49)
[2017-11-14] MEDS: MethylPREDNISolone 40 mg Vial IV SCH (21:17)
[2017-11-14] MEDS: (Novolin R) Insulin Human Regular 100 units/ml vial SC SCH (21:23)
[2017-11-14] MEDS: Fluticasone-Salmeterol 250-50mcg Diskus INH SCH (21:48)
[2017-11-14] MEDS: Albuterol-Ipratrop 3 mg / 0.5 (3 ml) UD INH SCH (21:48)
[2017-11-14] MEDS: Budesonide 0.5 mg/2 ml Inhal Susp UD IH SCH (21:49)
--- NOTE | 2017-11-14 23:33 | CP.PCM.HP ---
History of Present Illness - History of Present Illness History of Present Illness: CC: shortness of breath History Of Present Illness 67 y/o male with history of Chronic CHF, COPD and Steroid induced DM presents to ED with complaints of difficulty breathing, sob, sharp chest pain to left precordium and dry cough for "several days". Patient states after being discharged he was on a prednisone taper for 2 weeks as prescribed then went back to 10mg which was normal dosage daily. On his maintenance dose the respiratory symptoms recurred. Patient states he is compliant with medication and denies leg swelling, arm swelling chest pain or palpitations, fever, chills or any other complaints at this time. Past Patient History - Infectious Disease Hx of Infectious Diseases: None - Past Medical History & Family History Past Medical History?: Yes - Past Social History Smoking Status: Former Smoker - CARDIAC Hx Cardia Arrhythmia: Yes (SVT) Hx Congestive Heart Failure: Yes Hx Hypercholesterolemia: Yes Hx Hypertension: Yes - PULMONARY Hx Respiratory Disorders: Yes Hx Asthma: Yes Hx Bronchitis: Yes Hx Chronic Obstructive Pulmonary Disease (COPD): Yes (Emphysema) Hx Emphysema: Yes Hx Pneumonia: Yes Hx Sleep Apnea: Yes (ON DALIRESP) - NEUROLOGICAL Hx Neurological Disorder: Yes HX Cerebrovascular Accident: Yes Hx Dizziness: Yes (MORE OFTEN NOW) Hx Syncope: Yes Other/Comment: PERIPHERAL NEUROPATHY - HEENT Hx HEENT Problems: Yes Hx Cataracts: Yes (left cataract removed, r cataract) Hx Deafness: No Hx Difficulty Chewing: No Hx Epistaxis: No Hx Glaucoma: No Hx Macular Degeneration: No Other/Comment: wears eyeglasses for distance - RENAL Hx Chronic Kidney Disease: Yes Hx Kidney Stones: Yes - ENDOCRINE/METABOLIC Hx Endocrine Disorders: Yes Hx Diabetes Mellitus Type 2: Yes - HEMATOLOGICAL/ONCOLOGICAL Hx Blood Disorders: Yes Hx Anemia: Yes - INTEGUMENTARY Hx Dermatological Problems: No Hx Psoriasis: Yes Other/Comment: arms with reddish spots and w/ dark discoloration - MUSCULOSKELETAL/RHEUMATOLOGICAL Hx Musculoskeletal Disorders: No Hx Falls: No - GASTROINTESTINAL Hx Gastrointestinal Disorders: No Hx Gastritis: No - GENITOURINARY/GYNECOLOGICAL Hx Genitourinary Disorders: No - PSYCHIATRIC Hx Psychophysiologic Disorder: No Hx Substance Use: No - SURGICAL HISTORY Hx Surgeries: Yes Hx Cataract Extraction: Yes (left eye, right eye) Hx Cardiac Catheterization: Yes (11/2015) Hx Eye Surgery: Yes Hx Pulmonary Surgery: Yes Other/Comment: colon resection with right ileostomy - ANESTHESIA Hx Anesthesia: Yes Hx Anesthesia Reactions: No Hx Malignant Hyperthermia: No Has any member of the family had a problem w/ anesthesia?: No Meds Allergies/Adverse Reactions: Allergies Allergy/AdvReac Type Severity Reaction Status Date / Time acetaminophen [From Tylenol] Allergy RASH Verified 11/14/17 15:19 FISH Allergy SWELLING Verified 11/14/17 15:19 shrimp Allergy SHORTNESS Verified 11/14/17 15:19 OF BREATH IV dye Allergy Severe ANAPHYLAXIS Uncoded 11/14/17 15:19 Results - Vital Signs Recent Vital Signs: Last Vital Signs Temp 97.8 F 11/14/17 23:29 Pulse 114 H 11/14/17 23:29 Resp 22 11/14/17 23:29 BP 114/72 11/14/17 23:29 Pulse Ox 98 11/14/17 23:29 - Labs Result Diagrams: 11/14/17 15:47 11/14/17 15:47 Labs: Laboratory Results - last 24 hr 11/14/17 11/14/17 11/14/17 15:47 15:47 15:47 WBC 13.7 H RBC 4.87 Hgb 11.3 L Hct 34.8 L MCV 71.5 L MCH 23.1 L MCHC 32.4 L RDW 20.9 H Plt Count 275 MPV 8.7 Neut % (Auto) 87.6 H Lymph % (Auto) 7.6 L [place] % (Auto) 3.5 Eos % (Auto) 0.5 Baso % (Auto) 0.8 Neut # (Auto) 12.0 H Lymph # (Auto) 1.0 [place] # (Auto) 0.5 Eos # (Auto) 0.1 Baso # (Auto) 0.1 Neutrophils % (Manual) 90 H Lymphocytes % (Manual) 5 L Monocytes % (Manual) 5 Platelet Estimate Normal Hypochromasia (manual) Slight Poikilocytosis (manual Slight Anisocytosis (manual) Slight Microcytosis (manual) Slight Target Cells Slight Tear Drop Cells Slight Ovalocytes Slight D-Dimer, Quantitative 281 H Puncture Site pCO2 pO2 HCO3 ABG pH ABG Total CO2 ABG O2 Saturation ABG Base Excess ABG Hemoglobin ABG Carboxyhemoglobin POC ABG HHb (Measured) ABG Methemoglobin Jesus Test A-a O2 Difference Respiratory Index Hgb O2 Saturation Liter Flow FiO2 Sodium 137 Potassium 4.4 Chloride 98 Carbon Dioxide 25 Anion Gap 19 BUN 11 Creatinine 0.6 L Est GFR ( Amer) > 60 Est GFR (Non-Af Amer) > 60 POC Glucose (mg/dL) Random Glucose 250 H Calcium 9.3 Total Bilirubin 0.3 AST 40 ALT 43 Alkaline Phosphatase 153 H D Troponin I < 0.0120 NT-Pro-B Natriuret Pep 25.0 Total Protein 7.2 Albumin 4.2 Globulin 3.0 Albumin/Globulin Ratio 1.4 11/14/17 11/14/17 11/14/17 16:06 18:27 21:13 WBC RBC Hgb Hct MCV MCH MCHC RDW Plt Count MPV Neut % (Auto) Lymph % (Auto) [place] % (Auto) Eos % (Auto) Baso % (Auto) Neut # (Auto) Lymph # (Auto) [place] # (Auto) Eos # (Auto) Baso # (Auto) Neutrophils % (Manual) Lymphocytes % (Manual) Monocytes % (Manual) Platelet Estimate Hypochromasia (manual) Poikilocytosis (manual Anisocytosis (manual) Microcytosis (manual) Target Cells Tear Drop Cells Ovalocytes D-Dimer, Quantitative Puncture Site Rra pCO2 43 pO2 113 H HCO3 27.3 ABG pH 7.42 ABG Total CO2 29.2 H ABG O2 Saturation 99.4 H ABG Base Excess 3.0 ABG Hemoglobin 11.3 L ABG Carboxyhemoglobin 1.8 H POC ABG HHb (Measured) 0.6 ABG Methemoglobin 1.2 Jesus Test Pos A-a O2 Difference 47.0 Respiratory Index 0.4 Hgb O2 Saturation 96.3 Liter Flow 3.0 FiO2 30.0 Sodium Potassium Chloride Carbon Dioxide Anion Gap BUN Creatinine Est GFR ( Amer) Est GFR (Non-Af Amer) POC Glucose (mg/dL) 235 H 265 H Random Glucose Calcium Total Bilirubin AST ALT Alkaline Phosphatase Troponin I NT-Pro-B Natriuret Pep Total Protein Albumin Globulin Albumin/Globulin Ratio
[2017-11-15] MEDS: Albuterol-Ipratrop 3 mg / 0.5 (3 ml) UD INH SCH ×4 (02:12→19:28)
[2017-11-15] MEDS: Budesonide 0.5 mg/2 ml Inhal Susp UD IH SCH ×2 (07:17→19:28)
[2017-11-15] MEDS: Fluticasone-Salmeterol 250-50mcg Diskus INH SCH ×2 (07:18→19:29)
[2017-11-15 07:43] VITALS: RESP 20
[2017-11-15] MEDS: (Novolin R) Insulin Human Regular 100 units/ml vial SC SCH ×4 (07:45→21:19)
[2017-11-15] MEDS: Enoxaparin 40 mg Syringe SC SCH (09:10)
[2017-11-15] MEDS: MethylPREDNISolone 40 mg Vial IV SCH ×2 (09:11→21:39)
[2017-11-15] MEDS: Pantoprazole 40 mg EC Tab PO SCH (09:11)
[2017-11-15] MEDS: Vitamin B Complex/Vitamin C Tab PO SCH (09:11)
--- NOTE | 2017-11-15 12:39 | CP.PCM.CON ---
History of Present Illness - History of Present Illness History of Present Illness: General Surgery Consult Note for Dr. Nieto The patient is a 67yo M that was admitted through the ED for COPD exacerbation. General surgery was consulted for possible ileostomy reversal. 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 He states that initially he was unable to go for his f/u Colonoscopy earlier this year due to multiple COPD exacerbations. He was finalyl able to get it done on 11/07 w/ Dr. Black. Pt currently admits to SOB, he denies any nausea/vomiting/fevers/chills, SOB, chest pain, LE edema, changes in urinary habits. He states that his ileostomy has been functioning well with no issues. PMH: COPD, DM PSH: Low anterior resection w/ loop ileostomy Allergies: Tylenol Review of Systems - Constitutional Constitutional: absent: Chills, Fever, Weakness - Cardiovascular Cardiovascular: absent: Chest Pain, Chest Pain at Rest, Leg Edema, Leg Ulcers - Respiratory Respiratory: Dyspnea - Gastrointestinal Gastrointestinal: absent: Abdominal Pain, Change in Bowel Habits, Change in Stool Character, Constipation, Cramping, Diarrhea - Genitourinary Genitourinary: absent: Change in Urinary Stream, Difficulty Urinating, Dysuria Past Patient History - Infectious Disease Hx of Infectious Diseases: None - Past Medical History & Family History Past Medical History?: Yes - Past Social History Smoking Status: Former Smoker - CARDIAC Hx Cardia Arrhythmia: Yes (SVT) Hx Congestive Heart Failure: Yes Hx Hypercholesterolemia: Yes Hx Hypertension: Yes - PULMONARY Hx Respiratory Disorders: Yes Hx Asthma: Yes Hx Bronchitis: Yes Hx Chronic Obstructive Pulmonary Disease (COPD): Yes (Emphysema) Hx Emphysema: Yes Hx Pneumonia: Yes Hx Sleep Apnea: Yes (ON DALIRESP) - NEUROLOGICAL Hx Neurological Disorder: Yes HX Cerebrovascular Accident: Yes Hx Dizziness: Yes (MORE OFTEN NOW) Hx Syncope: Yes Other/Comment: PERIPHERAL NEUROPATHY - HEENT Hx HEENT Problems: Yes Hx Cataracts: Yes (left cataract removed, r cataract) Hx Deafness: No Hx Difficulty Chewing: No Hx Epistaxis: No Hx Glaucoma: No Hx Macular Degeneration: No Other/Comment: wears eyeglasses for distance - RENAL Hx Chronic Kidney Disease: Yes Hx Kidney Stones: Yes - ENDOCRINE/METABOLIC Hx Endocrine Disorders: Yes Hx Diabetes Mellitus Type 2: Yes - HEMATOLOGICAL/ONCOLOGICAL Hx Blood Disorders: Yes Hx Anemia: Yes - INTEGUMENTARY Hx Dermatological Problems: No Hx Psoriasis: Yes Other/Comment: arms with reddish spots and w/ dark discoloration - MUSCULOSKELETAL/RHEUMATOLOGICAL Hx Musculoskeletal Disorders: No Hx Falls: No - GASTROINTESTINAL Hx Gastrointestinal Disorders: No Hx Gastritis: No - GENITOURINARY/GYNECOLOGICAL Hx Genitourinary Disorders: No - PSYCHIATRIC Hx Psychophysiologic Disorder: No Hx Substance Use: No - SURGICAL HISTORY Hx Surgeries: Yes Hx Cataract Extraction: Yes (left eye, right eye) Hx Cardiac Catheterization: Yes (11/2015) Hx Eye Surgery: Yes Hx Pulmonary Surgery: Yes Other/Comment: colon resection with right ileostomy - ANESTHESIA Hx Anesthesia: Yes Hx Anesthesia Reactions: No Hx Malignant Hyperthermia: No Has any member of the family had a problem w/ anesthesia?: No Meds Allergies/Adverse Reactions: Allergies Allergy/AdvReac Type Severity Reaction Status Date / Time acetaminophen [From Tylenol] Allergy RASH Verified 11/14/17 15:19 FISH Allergy SWELLING Verified 11/14/17 15:19 shrimp Allergy SHORTNESS Verified 11/14/17 15:19 OF BREATH IV dye Allergy Severe ANAPHYLAXIS Uncoded 11/14/17 15:19 - Medications Medications: Current Medications Albuterol/Ipratropium (Duoneb 3 Mg/0.5 Mg (3 Ml) Ud) 3 ml INH RQ6 [facility] Last Admin: 11/15/17 07:17 Dose: 3 ml Alprazolam (Xanax) 0.5 mg PO Q12 [facility] Stop: 11/21/17 22:01 Last Admin: 11/15/17 09:10 Dose: 0.5 mg Budesonide (Pulmicort Respules) 0.5 mg IH RQ12 [facility] Last Admin: 11/15/17 07:17 Dose: 0.5 mg Enoxaparin Sodium (Lovenox) 40 mg SC DAILY [facility] Last Admin: 11/15/17 09:10 Dose: 40 mg Insulin Human Regular (Novolin R) 0 unit SC ACHS [facility] PRN Reason: Protocol Last Admin: 11/15/17 11:47 Dose: 2 unit Metformin HCl (Glucophage) 1,000 mg PO BID [facility] Last Admin: 11/15/17 09:11 Dose: 1,000 mg Methylprednisolone (Solu-Medrol) 30 mg IV Q12 [facility] Last Admin: 11/15/17 09:11 Dose: 30 mg Montelukast Sodium (Singulair) 10 mg PO HS [facility] Last Admin: 11/14/17 21:16 Dose: 10 mg Oxycodone HCl (Oxycodone Immediate Release Tab) 5 mg PO Q6 PRN PRN Reason: Pain, moderate (4-7) Pantoprazole Sodium (Protonix Ec Tab) 40 mg PO DAILY [facility] Last Admin: 11/15/17 09:11 Dose: 40 mg Pregabalin (Lyrica) 50 mg PO BID [facility] Last Admin: 11/15/17 09:13 Dose: 50 mg Roflumilast (Daliresp) 500 mcg PO DAILY [facility] Last Admin: 11/15/17 09:13 Dose: 500 mcg Fluticasone/Salmeterol (Advair Diskus 250/50) 1 puff INH RBID [facility] Last Admin: 11/15/17 07:18 Dose: Not Given Vitamin B Complex/Vitamin C (Berocca) 1 tab PO DAILY [facility] Last Admin: 11/15/17 09:11 Dose: 1 tab Physical Exam - Constitutional Appears: Well, Non-toxic, No Acute Distress - Head Exam Head Exam: ATRAUMATIC, NORMAL INSPECTION - Eye Exam Eye Exam: Normal appearance - ENT Exam ENT Exam: Mucous Membranes Moist - Respiratory Exam Respiratory Exam: NORMAL BREATHING PATTERN - GI/Abdominal Exam GI & Abdominal Exam: Normal Bowel Sounds, Soft. absent: Distended, Firm, Guarding, Mass, Rebound, Rigid Additional comments: Ileostomy present in RLQ, ostomy bag present with normal output. - Rectal Exam Rectal Exam: Deferred - Extremities Exam Extremities exam: Positive for: normal inspection, pedal pulses present. Negative for: pedal edema, tenderness - Neurological Exam Neurological exam: Alert, Oriented x3 - Psychiatric Exam Psychiatric exam: Normal Affect, Normal Mood - Skin Skin Exam: Dry, Intact, Normal Color, Warm Results - Vital Signs Recent Vital Signs: Last Vital Signs Temp 97.7 F 11/15/17 07:40 Pulse 109 H 11/15/17 07:40 Resp 20 11/15/17 07:40 BP 129/76 11/15/17 07:40 Pulse Ox 98 11/15/17 07:40 - Labs Result Diagrams: 11/14/17 15:47 11/14/17 15:47 Labs: Laboratory Results - last 24 hr 11/14/17 11/14/17 11/14/17 15:47 15:47 15:47 WBC 13.7 H RBC 4.87 Hgb 11.3 L Hct 34.8 L MCV 71.5 L MCH 23.1 L MCHC 32.4 L RDW 20.9 H Plt Count 275 MPV 8.7 Neut % (Auto) 87.6 H Lymph % (Auto) 7.6 L [place] % (Auto) 3.5 Eos % (Auto) 0.5 Baso % (Auto) 0.8 Neut # (Auto) 12.0 H Lymph # (Auto) 1.0 [place] # (Auto) 0.5 Eos # (Auto) 0.1 Baso # (Auto) 0.1 Neutrophils % (Manual) 90 H Lymphocytes % (Manual) 5 L Monocytes % (Manual) 5 Platelet Estimate Normal Hypochromasia (manual) Slight Poikilocytosis (manual Slight Anisocytosis (manual) Slight Microcytosis (manual) Slight Target Cells Slight Tear Drop Cells Slight Ovalocytes Slight D-Dimer, Quantitative 281 H Puncture Site pCO2 pO2 HCO3 ABG pH ABG Total CO2 ABG O2 Saturation ABG Base Excess ABG Hemoglobin ABG Carboxyhemoglobin POC ABG HHb (Measured) ABG Methemoglobin Jesus Test A-a O2 Difference Respiratory Index Hgb O2 Saturation Liter Flow FiO2 Sodium 137 Potassium 4.4 Chloride 98 Carbon Dioxide 25 Anion Gap 19 BUN 11 Creatinine 0.6 L Est GFR ( Amer) > 60 Est GFR (Non-Af Amer) > 60 POC Glucose (mg/dL) Random Glucose 250 H Calcium 9.3 Total Bilirubin 0.3 AST 40 ALT 43 Alkaline Phosphatase 153 H D Troponin I < 0.0120 NT-Pro-B Natriuret Pep 25.0 Total Protein 7.2 Albumin 4.2 Globulin 3.0 Albumin/Globulin Ratio 1.4 11/14/17 11/14/17 11/14/17 16:06 18:27 21:13 WBC RBC Hgb Hct MCV MCH MCHC RDW Plt Count MPV Neut % (Auto) Lymph % (Auto) [place] % (Auto) Eos % (Auto) Baso % (Auto) Neut # (Auto) Lymph # (Auto) [place] # (Auto) Eos # (Auto) Baso # (Auto) Neutrophils % (Manual) Lymphocytes % (Manual) Monocytes % (Manual) Platelet Estimate Hypochromasia (manual) Poikilocytosis (manual Anisocytosis (manual) Microcytosis (manual) Target Cells Tear Drop Cells Ovalocytes D-Dimer, Quantitative Puncture Site Rra pCO2 43 pO2 113 H HCO3 27.3 ABG pH 7.42 ABG Total CO2 29.2 H ABG O2 Saturation 99.4 H ABG Base Excess 3.0 ABG Hemoglobin 11.3 L ABG Carboxyhemoglobin 1.8 H POC ABG HHb (Measured) 0.6 ABG Methemoglobin 1.2 Jesus Test Pos A-a O2 Difference 47.0 Respiratory Index 0.4 Hgb O2 Saturation 96.3 Liter Flow 3.0 FiO2 30.0 Sodium Potassium Chloride Carbon Dioxide Anion Gap BUN Creatinine Est GFR ( Amer) Est GFR (Non-Af Amer) POC Glucose (mg/dL) 235 H 265 H Random Glucose Calcium Total Bilirubin AST ALT Alkaline Phosphatase Troponin I NT-Pro-B Natriuret Pep Total Protein Albumin Globulin Albumin/Globulin Ratio 11/15/17 11/15/17 07:12 11:18 WBC RBC Hgb Hct MCV MCH MCHC RDW Plt Count MPV Neut % (Auto) Lymph % (Auto) [place] % (Auto) Eos % (Auto) Baso % (Auto) Neut # (Auto) Lymph # (Auto) [place] # (Auto) Eos # (Auto) Baso # (Auto) Neutrophils % (Manual) Lymphocytes % (Manual) Monocytes % (Manual) Platelet Estimate Hypochromasia (manual) Poikilocytosis (manual Anisocytosis (manual) Microcytosis (manual) Target Cells Tear Drop Cells Ovalocytes D-Dimer, Quantitative Puncture Site pCO2 pO2 HCO3 ABG pH ABG Total CO2 ABG O2 Saturation ABG Base Excess ABG Hemoglobin ABG Carboxyhemoglobin POC ABG HHb (Measured) ABG Methemoglobin Jesus Test A-a O2 Difference Respiratory Index Hgb O2 Saturation Liter Flow FiO2 Sodium Potassium Chloride Carbon Dioxide Anion Gap BUN Creatinine Est GFR ( Amer) Est GFR (Non-Af Amer) POC Glucose (mg/dL) 197 H 166 H Random Glucose Calcium Total Bilirubin AST ALT Alkaline Phosphatase Troponin I NT-Pro-B Natriuret Pep Total Protein Albumin Globulin Albumin/Globulin Ratio Assessment & Plan - Assessment and Plan (Free Text) Assessment: 67yo M s/p Low Anterior Resection w/ Ileostomy Plan: -Medical management -F/U Pulmonology -Ileostomy reversal to be done electively at a scheduled date -Continue ostomy care DW DR Emilia Arroyo, PGY3
--- NOTE | 2017-11-15 16:53 | CP.PCM.CON ---
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 The patient was recently hospitalized from 10/25 to 10/30 with a COPD exacerbation and was prescribed a 2 week prednisone taper down to his normal 10mg daily dosage. After completing the taper and getting back to his normal dose, the respiratory symptoms recurred so he called EMS for transport to the hospital. Patient denies extremity swelling, palpitations, fever or chills. Patient has multiple painless ecchymoses on both his forearms which he notes are from his chronic prednisone use. Patient seen and examined at bedside. This morning he reports that his shortness of breath and productive cough have not improved. He feels that his home dose of prednisone is insufficient for preventing COPD exacerbations. He feels frustrated because he needs a surgical re-anastamosis and has been hospitalized with multiple times recently but that the surgery has still not been done. PMHx: COPD, CHF, arthritis, steroid-induced DM, sleep apnea, colon cancer PSH: sigmoid anastamosis, endoscopy 11/07, cataract repair Home Meds: duonebs, 10mg prednisone PO QD, roflumilast, Allergies: acetaminophen, fish, shrimp, IV dye SH: 8 pack-frederic tobacco habit quit 1.5 years ago, quit alcohol 15 years ago, no drug use Assessment and Plan: 1. Acute COPD exacerbation - Saturating 95-98% - CXR 11/14: Central and upper perihilar emphysematous-like changes noted. Possible granulomatous change - WBC 13.7, 90% neutrophils, afebrile - ABG 11/14: 7.42/43/113/25 - negative flu - duonebs - pulmicort - advair - singulair - solumedrol - BiPAP 2. Hx of colon cancer, need for surgical reanastamosis - Endo 11/07 showed friable mucosa around anastamosis site and need for surgical reanastamosis, internal hemorrhoids - GI consult - General Surgery consult Past Patient History - Infectious Disease Hx of Infectious Diseases: None - Past Medical History & Family History Past Medical History?: Yes - Past Social History Smoking Status: Former Smoker - CARDIAC Hx Cardia Arrhythmia: Yes (SVT) Hx Congestive Heart Failure: Yes Hx Hypercholesterolemia: Yes Hx Hypertension: Yes - PULMONARY Hx Respiratory Disorders: Yes Hx Asthma: Yes Hx Bronchitis: Yes Hx Chronic Obstructive Pulmonary Disease (COPD): Yes (Emphysema) Hx Emphysema: Yes Hx Pneumonia: Yes Hx Sleep Apnea: Yes (ON DALIRESP) - NEUROLOGICAL Hx Neurological Disorder: Yes HX Cerebrovascular Accident: Yes Hx Dizziness: Yes (MORE OFTEN NOW) Hx Syncope: Yes Other/Comment: PERIPHERAL NEUROPATHY - HEENT Hx HEENT Problems: Yes Hx Cataracts: Yes (left cataract removed, r cataract) Hx Deafness: No Hx Difficulty Chewing: No Hx Epistaxis: No Hx Glaucoma: No Hx Macular Degeneration: No Other/Comment: wears eyeglasses for distance - RENAL Hx Chronic Kidney Disease: Yes Hx Kidney Stones: Yes - ENDOCRINE/METABOLIC Hx Endocrine Disorders: Yes Hx Diabetes Mellitus Type 2: Yes - HEMATOLOGICAL/ONCOLOGICAL Hx Blood Disorders: Yes Hx Anemia: Yes - INTEGUMENTARY Hx Dermatological Problems: No Hx Psoriasis: Yes Other/Comment: arms with reddish spots and w/ dark discoloration - MUSCULOSKELETAL/RHEUMATOLOGICAL Hx Musculoskeletal Disorders: No Hx Falls: No - GASTROINTESTINAL Hx Gastrointestinal Disorders: No Hx Gastritis: No - GENITOURINARY/GYNECOLOGICAL Hx Genitourinary Disorders: No - PSYCHIATRIC Hx Psychophysiologic Disorder: No Hx Substance Use: No - SURGICAL HISTORY Hx Surgeries: Yes Hx Cataract Extraction: Yes (left eye, right eye) Hx Cardiac Catheterization: Yes (11/2015) Hx Eye Surgery: Yes Hx Pulmonary Surgery: Yes Other/Comment: colon resection with right ileostomy - ANESTHESIA Hx Anesthesia: Yes Hx Anesthesia Reactions: No Hx Malignant Hyperthermia: No Has any member of the family had a problem w/ anesthesia?: No Meds Allergies/Adverse Reactions: Allergies Allergy/AdvReac Type Severity Reaction Status Date / Time acetaminophen [From Tylenol] Allergy RASH Verified 11/14/17 15:19 FISH Allergy SWELLING Verified 11/14/17 15:19 shrimp Allergy SHORTNESS Verified 11/14/17 15:19 OF BREATH IV dye Allergy Severe ANAPHYLAXIS Uncoded 11/14/17 15:19 - Medications Medications: Current Medications Albuterol/Ipratropium (Duoneb 3 Mg/0.5 Mg (3 Ml) Ud) 3 ml INH RQ6 [facility] Last Admin: 11/15/17 13:53 Dose: 3 ml Alprazolam (Xanax) 0.5 mg PO Q12 [facility] Stop: 11/21/17 22:01 Last Admin: 11/15/17 09:10 Dose: 0.5 mg Budesonide (Pulmicort Respules) 0.5 mg IH RQ12 [facility] Last Admin: 11/15/17 07:17 Dose: 0.5 mg Enoxaparin Sodium (Lovenox) 40 mg SC DAILY [facility] Last Admin: 11/15/17 09:10 Dose: 40 mg Insulin Human Regular (Novolin R) 0 unit SC ACHS [facility] PRN Reason: Protocol Last Admin: 11/15/17 11:47 Dose: 2 unit Metformin HCl (Glucophage) 1,000 mg PO BID [facility] Last Admin: 11/15/17 09:11 Dose: 1,000 mg Methylprednisolone (Solu-Medrol) 30 mg IV Q12 [facility] Last Admin: 11/15/17 09:11 Dose: 30 mg Montelukast Sodium (Singulair) 10 mg PO HS [facility] Last Admin: 11/14/17 21:16 Dose: 10 mg Oxycodone HCl (Oxycodone Immediate Release Tab) 5 mg PO Q6 PRN PRN Reason: Pain, moderate (4-7) Pantoprazole Sodium (Protonix Ec Tab) 40 mg PO DAILY [facility] Last Admin: 11/15/17 09:11 Dose: 40 mg Pregabalin (Lyrica) 50 mg PO BID [facility] Last Admin: 11/15/17 09:13 Dose: 50 mg Roflumilast (Daliresp) 500 mcg PO DAILY [facility] Last Admin: 11/15/17 09:13 Dose: 500 mcg Fluticasone/Salmeterol (Advair Diskus 250/50) 1 puff INH RBID [facility] Last Admin: 11/15/17 07:18 Dose: Not Given Vitamin B Complex/Vitamin C (Berocca) 1 tab PO DAILY [facility] Last Admin: 11/15/17 09:11 Dose: 1 tab Results - Vital Signs Recent Vital Signs: Last Vital Signs Temp 97.5 F L 11/15/17 15:00 Pulse 102 H 11/15/17 15:00 Resp 20 11/15/17 15:00 BP 134/77 11/15/17 15:00 Pulse Ox 97 11/15/17 15:00 - Labs Result Diagrams: 11/14/17 15:47 11/14/17 15:47 Labs: Laboratory Results - last 24 hr 11/14/17 11/14/17 11/15/17 18:27 21:13 07:12 POC Glucose (mg/dL) 235 H 265 H 197 H 11/15/17 11/15/17 11:18 16:30 POC Glucose (mg/dL) 166 H 266 H
[2017-11-16] MEDS: Albuterol-Ipratrop 3 mg / 0.5 (3 ml) UD INH SCH ×4 (01:54→19:19)
[2017-11-16 06:49] LABS: HEMOGLOBIN 10.9 g/dL (12.0-18.0); MEAN CELL VOLUME 70.9 fL (80.0-94.0); MEAN CORPUSCULAR HEMOGLOBIN 23.5 pg (27.0-31.0); MEAN CORPUSCULAR HGB CONC 33.1 g/dL (33.0-37.0); RBC 4.62 Mil/uL (4.40-5.90); RED CELL DISTRIBUTION WIDTH 20.8 % (11.5-14.5); WHITE BLOOD COUNT 14.3 K/uL (4.8-10.8)
[2017-11-16 06:56] LABS: BLOOD UREA NITROGEN 14 mg/dL (9-20); CALCIUM 9.2 mg/dl (8.6-10.4); GFR AFRICAN-AMERICAN > 60; GFR NON-AFRICAN AMERICAN > 60
[2017-11-16] MEDS: Fluticasone-Salmeterol 250-50mcg Diskus INH SCH (07:20)
[2017-11-16] MEDS: Budesonide 0.5 mg/2 ml Inhal Susp UD IH SCH ×2 (07:20→19:19)
--- NOTE | 2017-11-16 07:56 | CARD ---
APPROVED REPORT EKG Measurement Heart [id number] <Conclusion> Sinus tachycardia Otherwise normal ECG
[2017-11-16] MEDS: (Novolin R) Insulin Human Regular 100 units/ml vial SC SCH ×4 (08:36→21:22)
[2017-11-16] MEDS: Pantoprazole 40 mg EC Tab PO SCH (09:51)
[2017-11-16] MEDS: Vitamin B Complex/Vitamin C Tab PO SCH (09:51)
[2017-11-16] MEDS: MethylPREDNISolone 40 mg Vial IV SCH (09:52)
[2017-11-16] MEDS: Enoxaparin 40 mg Syringe SC SCH (09:52)
[2017-11-16] MEDS: guaiFENesin 200 mg/10 ml Syrup UD PO PRN ×2 (11:50→21:52)
--- NOTE | 2017-11-16 15:38 | CP.PCM.PN ---
Subjective - Date & Time of Evaluation Date of Evaluation: 11/16/17 Time of Evaluation: 07:45 - Subjective Subjective: Patient seen and examined at bedside. This morning he reports that his shortness of breath and productive cough have not improved and that he needed to use the BiPAP both overnight and this morning as well. he spoke with Dr. Nieto yesterday about possible surgery. Assessment and Plan: 1. Acute COPD exacerbation - Saturating 95-98% - CXR 11/14: Central and upper perihilar emphysematous-like changes noted. Possible granulomatous change - WBC 13.7, 90% neutrophils, afebrile - ABG 11/14: 7.42/43/113/25 - negative flu - duonebs - pulmicort - advair - singulair - solumedrol - On BiPAP 2. Hx of colon cancer, need for surgical reanastamosis - Endo 11/07 showed friable mucosa around anastamosis site and need for surgical reanastamosis, internal hemorrhoids - General Surgery consulted, Dr. Nieto on board Objective - Vital Signs/Intake and Output Vital Signs (last 24 hours): Temp Pulse Resp BP Pulse Ox 98.2 F 112 H 20 110/69 98 11/16/17 08:00 11/16/17 08:00 11/16/17 08:00 11/16/17 08:00 11/16/17 08:00 - Medications Medications: Current Medications Albuterol/Ipratropium (Duoneb 3 Mg/0.5 Mg (3 Ml) Ud) 3 ml INH RQ6 [facility] Last Admin: 11/16/17 13:19 Dose: 3 ml Alprazolam (Xanax) 0.5 mg PO Q12 [facility] Stop: 11/21/17 22:01 Last Admin: 11/16/17 09:51 Dose: 0.5 mg Budesonide (Pulmicort Respules) 0.5 mg IH RQ12 [facility] Last Admin: 11/16/17 07:20 Dose: 0.5 mg Enoxaparin Sodium (Lovenox) 40 mg SC DAILY [facility] Last Admin: 11/16/17 09:52 Dose: 40 mg Guaifenesin (Robitussin) 200 mg PO Q4H PRN PRN Reason: Cough and congestion Last Admin: 11/16/17 11:50 Dose: 200 mg Insulin Human Regular (Novolin R) 0 unit SC ACHS [facility] PRN Reason: Protocol Last Admin: 11/16/17 11:57 Dose: 2 unit Metformin HCl (Glucophage) 1,000 mg PO BID [facility] Last Admin: 11/16/17 09:51 Dose: 1,000 mg Methylprednisolone (Solu-Medrol) 30 mg IV Q12 [facility] Last Admin: 11/16/17 09:52 Dose: 30 mg Montelukast Sodium (Singulair) 10 mg PO HS [facility] Last Admin: 11/15/17 21:44 Dose: 10 mg Oxycodone HCl (Oxycodone Immediate Release Tab) 5 mg PO Q6 PRN PRN Reason: Pain, moderate (4-7) Pantoprazole Sodium (Protonix Ec Tab) 40 mg PO DAILY [facility] Last Admin: 11/16/17 09:51 Dose: 40 mg Pregabalin (Lyrica) 50 mg PO BID [facility] Last Admin: 11/16/17 09:51 Dose: 50 mg Roflumilast (Daliresp) 500 mcg PO DAILY [facility] Last Admin: 11/16/17 11:50 Dose: 500 mcg Fluticasone/Salmeterol (Advair Diskus 250/50) 1 puff INH RBID [facility] Last Admin: 11/16/17 07:20 Dose: Not Given Vitamin B Complex/Vitamin C (Berocca) 1 tab PO DAILY [facility] Last Admin: 11/16/17 09:51 Dose: 1 tab - Labs Labs: 11/16/17 06:24 11/16/17 06:24
--- NOTE | 2017-11-16 23:18 | CP.PCM.PN ---
Subjective - Date & Time of Evaluation Date of Evaluation: 11/16/17 Time of Evaluation: 19:00 - Subjective Subjective: pT SEEN AND EXAMINED AT BEDSIDE Objective - Vital Signs/Intake and Output Vital Signs (last 24 hours): Temp Pulse Resp BP Pulse Ox 98 F 91 H 20 110/69 98 11/16/17 15:00 11/16/17 19:20 11/16/17 15:00 11/16/17 15:51 11/16/17 15:51 Intake and Output: 11/16/17 11/17/17 18:59 06:59 Intake Total 240 Balance 240 - Medications Medications: Current Medications Albuterol/Ipratropium (Duoneb 3 Mg/0.5 Mg (3 Ml) Ud) 3 ml INH RQ6 [facility] Last Admin: 11/16/17 19:19 Dose: 3 ml Alprazolam (Xanax) 0.5 mg PO Q12 [facility] Stop: 11/21/17 22:01 Last Admin: 11/16/17 21:41 Dose: 0.5 mg Budesonide (Pulmicort Respules) 0.5 mg IH RQ12 [facility] Last Admin: 11/16/17 19:19 Dose: 0.5 mg Enoxaparin Sodium (Lovenox) 40 mg SC DAILY [facility] Last Admin: 11/16/17 09:52 Dose: 40 mg Guaifenesin (Robitussin) 200 mg PO Q4H PRN PRN Reason: Cough and congestion Last Admin: 11/16/17 21:52 Dose: 200 mg Insulin Human Regular (Novolin R) 0 unit SC ACHS [facility] PRN Reason: Protocol Last Admin: 11/16/17 21:22 Dose: Not Given Metformin HCl (Glucophage) 1,000 mg PO BID [facility] Last Admin: 11/16/17 18:04 Dose: 1,000 mg Methylprednisolone (Solu-Medrol) 30 mg IV DAILY [facility] Montelukast Sodium (Singulair) 10 mg PO HS [facility] Last Admin: 11/16/17 21:41 Dose: 10 mg Oxycodone HCl (Oxycodone Immediate Release Tab) 5 mg PO Q6 PRN PRN Reason: Pain, moderate (4-7) Pantoprazole Sodium (Protonix Ec Tab) 40 mg PO DAILY [facility] Last Admin: 11/16/17 09:51 Dose: 40 mg Pregabalin (Lyrica) 50 mg PO BID [facility] Last Admin: 11/16/17 18:14 Dose: 50 mg Roflumilast (Daliresp) 500 mcg PO DAILY [facility] Last Admin: 11/16/17 11:50 Dose: 500 mcg Fluticasone/Salmeterol (Advair Diskus 250/50) 1 puff INH RBID [facility] Last Admin: 11/16/17 07:20 Dose: Not Given Vitamin B Complex/Vitamin C (Berocca) 1 tab PO DAILY [facility] Last Admin: 11/16/17 09:51 Dose: 1 tab - Labs Labs: 11/16/17 06:24 11/16/17 06:24 Assessment and Plan (1) COPD exacerbation Assessment & Plan: 1. Acute COPD exacerbation - Saturating 95-98% - CXR 11/14: Central and upper perihilar emphysematous-like changes noted. Possible granulomatous change - WBC 13.7, 90% neutrophils, afebrile - ABG 11/14: 7.42/43/113/25 - negative flu - duonebs - pulmicort - advair - singulair - solumedrol - On BiPAP 2. Hx of colon cancer, need for surgical reanastamosis - Endo 11/07 showed friable mucosa around anastamosis site and need for surgical reanastamosis, internal hemorrhoids - General Surgery consulted, Dr. Nieto on board Status: Acute (2) Abdominal pain Status: Acute (3) Acute bronchitis with asthma with acute exacerbation Status: Acute (4) Allergic Status: Acute (5) Asthma Status: Acute
--- NOTE | 2017-11-16 23:21 | CP.PCM.PN ---
Subjective - Date & Time of Evaluation Date of Evaluation: 11/15/17 Time of Evaluation: 18:40 - Subjective Subjective: Patient seen and examined at bedside .Patient's breathing is improved . No acute events reported. Patient remains afebrile. . Objective - Vital Signs/Intake and Output Vital Signs (last 24 hours): Temp Pulse Resp BP Pulse Ox 98 F 91 H 20 110/69 98 11/16/17 15:00 11/16/17 19:20 11/16/17 15:00 11/16/17 15:51 11/16/17 15:51 Intake and Output: 11/16/17 11/17/17 18:59 06:59 Intake Total 240 Balance 240 - Medications Medications: Current Medications Albuterol/Ipratropium (Duoneb 3 Mg/0.5 Mg (3 Ml) Ud) 3 ml INH RQ6 [facility] Last Admin: 11/16/17 19:19 Dose: 3 ml Alprazolam (Xanax) 0.5 mg PO Q12 [facility] Stop: 11/21/17 22:01 Last Admin: 11/16/17 21:41 Dose: 0.5 mg Budesonide (Pulmicort Respules) 0.5 mg IH RQ12 [facility] Last Admin: 11/16/17 19:19 Dose: 0.5 mg Enoxaparin Sodium (Lovenox) 40 mg SC DAILY [facility] Last Admin: 11/16/17 09:52 Dose: 40 mg Guaifenesin (Robitussin) 200 mg PO Q4H PRN PRN Reason: Cough and congestion Last Admin: 11/16/17 21:52 Dose: 200 mg Insulin Human Regular (Novolin R) 0 unit SC [facility] PRN Reason: Protocol Last Admin: 11/16/17 21:22 Dose: Not Given Metformin HCl (Glucophage) 1,000 mg PO BID [facility] Last Admin: 11/16/17 18:04 Dose: 1,000 mg Methylprednisolone (Solu-Medrol) 30 mg IV DAILY [facility] Montelukast Sodium (Singulair) 10 mg PO HS [facility] Last Admin: 11/16/17 21:41 Dose: 10 mg Oxycodone HCl (Oxycodone Immediate Release Tab) 5 mg PO Q6 PRN PRN Reason: Pain, moderate (4-7) Pantoprazole Sodium (Protonix Ec Tab) 40 mg PO DAILY [facility] Last Admin: 11/16/17 09:51 Dose: 40 mg Pregabalin (Lyrica) 50 mg PO BID [facility] Last Admin: 11/16/17 18:14 Dose: 50 mg Roflumilast (Daliresp) 500 mcg PO DAILY [facility] Last Admin: 11/16/17 11:50 Dose: 500 mcg Fluticasone/Salmeterol (Advair Diskus 250/50) 1 puff INH RBID [facility] Last Admin: 11/16/17 07:20 Dose: Not Given Vitamin B Complex/Vitamin C (Berocca) 1 tab PO DAILY [facility] Last Admin: 11/16/17 09:51 Dose: 1 tab - Labs Labs: 11/16/17 06:24 11/16/17 06:24 Assessment and Plan (1) COPD exacerbation Status: Acute (2) Abdominal pain Status: Acute (3) Acute bronchitis with asthma with acute exacerbation Status: Acute (4) Allergic Status: Acute (5) Asthma Status: Acute
[2017-11-17] MEDS: Albuterol-Ipratrop 3 mg / 0.5 (3 ml) UD INH SCH ×3 (01:29→13:00)
[2017-11-17] MEDS: Budesonide 0.5 mg/2 ml Inhal Susp UD IH SCH (07:10)
[2017-11-17 07:29] LABS: BASO # 0.1 K/uL (0.0-0.2); EOS # 0.1 K/uL (0.0-0.7); EOS % 1.2 % (0.0-4.0); HEMOGLOBIN 10.9 g/dL (12.0-18.0); LYMPH # 2.4 K/uL (1.0-4.3); LYMPH % 24.2 % (20.0-40.0); MEAN CELL VOLUME 71.2 fL (80.0-94.0); MEAN CORPUSCULAR HEMOGLOBIN 23.6 pg (27.0-31.0); MEAN CORPUSCULAR HGB CONC 33.2 g/dL (33.0-37.0); MEAN PLATELET VOLUME 8.8 fL (7.2-11.7); MONO # 0.8 K/uL (0.0-0.8); MONO % 8.3 % (0.0-10.0); NEUT # 6.5 K/uL (1.8-7.0); NEUT % 65.3 % (50.0-75.0); RBC 4.63 Mil/uL (4.40-5.90); RED CELL DISTRIBUTION WIDTH 21.4 % (11.5-14.5); WHITE BLOOD COUNT 9.9 K/uL (4.8-10.8)
[2017-11-17 07:57] LABS: ALB/GLOB RATIO 1.4 (1.0-2.1); ALBUMIN 3.8 g/dL (3.5-5.0); ALT/SGPT 34 U/L (21-72); AST/SGOT 26 U/L (17-59); BLOOD UREA NITROGEN 14 mg/dL (9-20); CALCIUM 9.1 mg/dl (8.6-10.4); GFR AFRICAN-AMERICAN > 60; GFR NON-AFRICAN AMERICAN > 60
[2017-11-17] MEDS: (Novolin R) Insulin Human Regular 100 units/ml vial SC SCH ×3 (08:24→17:57)
[2017-11-17] MEDS ORDERED: MethylPREDNISolone 40 mg Vial IV SCH (10:00)
[2017-11-17] MEDS: Vitamin B Complex/Vitamin C Tab PO SCH (11:14)
[2017-11-17] MEDS: Enoxaparin 40 mg Syringe SC SCH (11:15)
[2017-11-17] MEDS: Pantoprazole 40 mg EC Tab PO SCH (11:17)
[2017-11-17] MEDS: guaiFENesin 200 mg/10 ml Syrup UD PO PRN (11:22)
--- NOTE | 2017-11-17 13:52 | CP.PCM.PN ---
Subjective - Date & Time of Evaluation Date of Evaluation: 11/17/17 Time of Evaluation: 13:52 - Subjective Subjective: PATIENT IS ADMITTED FOR EXAC COPD AAO X3/ DENIES CHEST PAIN / COMPLAINING OF SOB WITHOUT 02 NO SIGN OF DISTRESS NOTED Objective - Vital Signs/Intake and Output Vital Signs (last 24 hours): Temp Pulse Resp BP Pulse Ox 98.5 F 98 H 20 132/75 98 11/17/17 07:28 11/17/17 07:28 11/17/17 07:28 11/17/17 07:28 11/17/17 07:28 Intake and Output: 11/17/17 11/17/17 06:59 18:59 Intake Total 240 Balance 240 - Medications Medications: Current Medications Albuterol/Ipratropium (Duoneb 3 Mg/0.5 Mg (3 Ml) Ud) 3 ml INH RQ6 [facility] Last Admin: 11/17/17 07:10 Dose: 3 ml Alprazolam (Xanax) 0.5 mg PO Q12 [facility] Stop: 11/21/17 22:01 Last Admin: 11/17/17 11:14 Dose: 0.5 mg Budesonide (Pulmicort Respules) 0.5 mg IH RQ12 [facility] Last Admin: 11/17/17 07:10 Dose: 0.5 mg Enoxaparin Sodium (Lovenox) 40 mg SC DAILY [facility] Last Admin: 11/17/17 11:15 Dose: 40 mg Guaifenesin (Robitussin) 200 mg PO Q4H PRN PRN Reason: Cough and congestion Last Admin: 11/17/17 11:22 Dose: 200 mg Insulin Human Regular (Novolin R) 0 unit SC [facility] PRN Reason: Protocol Last Admin: 11/17/17 12:39 Dose: 2 unit Metformin HCl (Glucophage) 1,000 mg PO BID [facility] Last Admin: 11/17/17 11:15 Dose: 1,000 mg Methylprednisolone (Solu-Medrol) 30 mg IV DAILY [facility] Last Admin: 11/17/17 11:14 Dose: 30 mg Montelukast Sodium (Singulair) 10 mg PO HS [facility] Last Admin: 11/16/17 21:41 Dose: 10 mg Oxycodone HCl (Oxycodone Immediate Release Tab) 5 mg PO Q6 PRN PRN Reason: Pain, moderate (4-7) Pantoprazole Sodium (Protonix Ec Tab) 40 mg PO DAILY [facility] Last Admin: 11/17/17 11:17 Dose: 40 mg Pregabalin (Lyrica) 50 mg PO BID [facility] Last Admin: 11/17/17 11:14 Dose: 50 mg Roflumilast (Daliresp) 500 mcg PO DAILY [facility] Last Admin: 11/17/17 11:17 Dose: 500 mcg Fluticasone/Salmeterol (Advair Diskus 250/50) 1 puff INH RBID [facility] Last Admin: 11/16/17 07:20 Dose: Not Given Vitamin B Complex/Vitamin C (Berocca) 1 tab PO DAILY [facility] Last Admin: 11/17/17 11:14 Dose: 1 tab - Labs Labs: 11/17/17 07:17 11/17/17 07:17 Assessment and Plan - Assessment and Plan (Free Text) Assessment: PATIENT SEEN AND EXAMINED AT THE BEDSIDE LUNG SOUND IMPROVE OF SOLUMEDROL AND O2 ILEOSTOMY INTACT/ PLAN IS TO DC HOME AND ILEOSTOMY REVERSAL BY DR MANZANO AT A SCHEDULE DATE DISCUSS WITH DR ZHANG AND DR REDDY WHO AGREE AND CLEAR PATIENT FOR DC FOLLOW UP WITH DR ZHANG AT HIS OFFICE IN 1-2 WEEKS --CALL FOR APPOINTMENT FOLLOW UP WITH DR REDDY AT HIS OFFICE ---CALL FOR APPOINTMENT FOLLOW UP WITH DR MANZANO -----CALL FOR APPOINTMENT CONTINUE ALL YOUR HOME MEDICATION ORDER NEW PRESCRIPTION GIVEN PREDNISONE 20 MG BY MOUTH DAILY FOR 3 DAYS 10 MG BY MOUTH DAILY FOR 3 DAYS 5 MG BY MOUTH DAILY CONTINOUS ROBUTUSSIN DM EVERY 6 HOURS NEEDED FOR COUGH ACTIVITY TOLERATED CALL DR ZHANG OR GO TO THE EMERGENCY ROOM IF SYMPTOMS RETURN OR WORSENING DISCUSS WITH PATIENT WHO AGREE AND VERBALIZED UNDERSTANDING
[2017-11-17 15:58] VITALS: BP 123/72; PULSE 113; TEMP 98; O2SAT 99
--- NOTE | 2017-11-17 23:27 | CP.PCM.DIS ---
Provider - Provider Date of Admission: 11/14/17 17:14 Attending physician: Hal Zhang MD Time Spent in preparation of Discharge (in minutes): 45 Diagnosis - Discharge Diagnosis (1) COPD exacerbation Status: Acute Priority: Medium (2) Abdominal pain Status: Acute (3) Acute bronchitis with asthma with acute exacerbation Status: Acute (4) Allergic Status: Acute (5) Asthma Status: Acute Hospital Course - Lab Results Lab Results: Most Recent Lab Values WBC 9.9 K/uL (4.8-10.8) 11/17/17 07:17 RBC 4.63 Mil/uL (4.40-5.90) 11/17/17 07:17 Hgb 10.9 g/dL (12.0-18.0) L 11/17/17 07:17 Hct 32.9 % (35.0-51.0) L 11/17/17 07:17 MCV 71.2 fL (80.0-94.0) L 11/17/17 07:17 MCH 23.6 pg (27.0-31.0) L 11/17/17 07:17 MCHC 33.2 g/dL (33.0-37.0) 11/17/17 07:17 RDW 21.4 % (11.5-14.5) H 11/17/17 07:17 Plt Count 246 K/uL (130-400) 11/17/17 07:17 MPV 8.8 fL (7.2-11.7) 11/17/17 07:17 Neut % (Auto) 65.3 % (50.0-75.0) 11/17/17 07:17 Lymph % (Auto) 24.2 % (20.0-40.0) 11/17/17 07:17 [place] % (Auto) 8.3 % (0.0-10.0) 11/17/17 07:17 Eos % (Auto) 1.2 % (0.0-4.0) 11/17/17 07:17 Baso % (Auto) 1.0 % (0.0-2.0) 11/17/17 07:17 Neut # (Auto) 6.5 K/uL (1.8-7.0) 11/17/17 07:17 Lymph # (Auto) 2.4 K/uL (1.0-4.3) 11/17/17 07:17 [place] # (Auto) 0.8 K/uL (0.0-0.8) 11/17/17 07:17 Eos # (Auto) 0.1 K/uL (0.0-0.7) 11/17/17 07:17 Baso # (Auto) 0.1 K/uL (0.0-0.2) 11/17/17 07:17 Neutrophils % (Manual) 90 % (50-75) H 11/14/17 15:47 Lymphocytes % (Manual) 5 % (20-40) L 11/14/17 15:47 Monocytes % (Manual) 5 % (0-10) 11/14/17 15:47 Platelet Estimate Normal (NORMAL) 11/14/17 15:47 Hypochromasia (manual) Slight 11/14/17 15:47 Poikilocytosis (manual Slight 11/14/17 15:47 Anisocytosis (manual) Slight 11/14/17 15:47 Microcytosis (manual) Slight 11/14/17 15:47 Target Cells Slight 11/14/17 15:47 Tear Drop Cells Slight 11/14/17 15:47 Ovalocytes Slight 11/14/17 15:47 D-Dimer, Quantitative 281 ng/mlDDU (0-243) H 11/14/17 15:47 Puncture Site Rra 11/14/17 16:06 pCO2 43 mm/Hg (35-45) 11/14/17 16:06 pO2 113 mm/Hg (80-100) H 11/14/17 16:06 HCO3 27.3 mmol/L (21-28) 11/14/17 16:06 ABG pH 7.42 (7.35-7.45) 11/14/17 16:06 ABG Total CO2 29.2 mmol/L (22-28) H 11/14/17 16:06 ABG O2 Saturation 99.4 % (95-98) H 11/14/17 16:06 ABG Base Excess 3.0 mmol/L (-2.0-3.0) 11/14/17 16:06 ABG Hemoglobin 11.3 g/dL (11.7-17.4) L 11/14/17 16:06 ABG Carboxyhemoglobin 1.8 % (0.5-1.5) H 11/14/17 16:06 POC ABG HHb (Measured) 0.6 % (0.0-5.0) 11/14/17 16:06 ABG Methemoglobin 1.2 % (0.0-3.0) 11/14/17 16:06 Jesus Test Pos 11/14/17 16:06 A-a O2 Difference 47.0 mm/Hg 11/14/17 16:06 Respiratory Index 0.4 11/14/17 16:06 Hgb O2 Saturation 96.3 % (95.0-98.0) 11/14/17 16:06 Liter Flow 3.0 11/14/17 16:06 FiO2 30.0 % 11/14/17 16:06 Sodium 141 mmol/L (132-148) 11/17/17 07:17 Potassium 4.2 mmol/L (3.6-5.2) 11/17/17 07:17 Chloride 99 mmol/L (98-107) 11/17/17 07:17 Carbon Dioxide 31 mmol/L (22-30) H 11/17/17 07:17 Anion Gap 15 (10-20) 11/17/17 07:17 BUN 14 mg/dL (9-20) 11/17/17 07:17 Creatinine 0.7 mg/dL (0.8-1.5) L 11/17/17 07:17 Est GFR ( Amer) > 60 11/17/17 07:17 Est GFR (Non-Af Amer) > 60 11/17/17 07:17 POC Glucose (mg/dL) 324 mg/dL (65-110) H 11/17/17 16:16 Random Glucose 226 mg/dL (75-110) H 11/17/17 07:17 Calcium 9.1 mg/dl (8.6-10.4) 11/17/17 07:17 Total Bilirubin 0.3 mg/dL (0.2-1.3) 11/17/17 07:17 AST 26 U/L (17-59) 11/17/17 07:17 ALT 34 U/L (21-72) 11/17/17 07:17 Alkaline Phosphatase 129 U/L (38-126) H 11/17/17 07:17 Troponin I < 0.0120 ng/mL (0.00-0.120) 11/14/17 15:47 NT-Pro-B Natriuret Pep 25.0 pg/mL (0-900) 11/14/17 15:47 Total Protein 6.5 g/dL (6.3-8.3) 11/17/17 07:17 Albumin 3.8 g/dL (3.5-5.0) 11/17/17 07:17 Globulin 2.7 gm/dL (2.2-3.9) 11/17/17 07:17 Albumin/Globulin Ratio 1.4 (1.0-2.1) 11/17/17 07:17 - Hospital Course Hospital Course: PATIENT SEEN AND EXAMINED AT THE BEDSIDE, he is for discharge, less cough, less short of breath LUNG SOUND IMPROVE OF SOLUMEDROL AND O2 ILEOSTOMY INTACT/ PLAN IS TO DC HOME AND ILEOSTOMY REVERSAL BY DR MANZANO AT A SCHEDULE DATE DR NUNO AGREED AND CLEAR PATIENT FOR DC FOLLOW UP WITH ME IN OFFICE IN 1-2 WEEKS --CALL FOR APPOINTMENT FOLLOW UP WITH DR NUNO AT HIS OFFICE ---CALL FOR APPOINTMENT FOLLOW UP WITH DR MANZANO -----CALL FOR APPOINTMENT CONTINUE ALL YOUR HOME MEDICATION ORDER NEW PRESCRIPTION GIVEN PREDNISONE 20 MG BY MOUTH DAILY FOR 3 DAYS 10 MG BY MOUTH DAILY FOR 3 DAYS 5 MG BY MOUTH DAILY CONTINOUS ROBUTUSSIN DM EVERY 6 HOURS NEEDED FOR COUGH ACTIVITY TOLERATED CALL DR ZHANG OR GO TO THE EMERGENCY ROOM IF SYMPTOMS RETURN OR WORSENING DISCUSS WITH PATIENT WHO AGREE AND VERBALIZED UNDERSTANDING Discharge Exam - Head Exam Head Exam: ATRAUMATIC, NORMAL INSPECTION - Eye Exam Eye Exam: EOMI, Normal appearance, PERRL Pupil Exam: NORMAL ACCOMODATION, PERRL - ENT Exam ENT Exam: Mucous Membranes Moist - Respiratory Exam Respiratory Exam: Decreased Breath Sounds, Rales, Rhonchi - Cardiovascular Exam Cardiovascular Exam: REGULAR RHYTHM, +S1, +S2 - GI/Abdominal Exam GI & Abdominal Exam: Normal Bowel Sounds Discharge Plan - Discharge Medications Prescriptions: predniSONE [predniSONE Tab] 5 mg PO DAILY 42 Days tab guaiFENesin/Dextromethorphan [Guaifenesin-Dm 10 MG/5 Ml-100 MG/5 Ml 5 Ml] 5 ml PO Q6H 5 Days udc - Follow Up Plan Condition: FAIR Disposition: HOME/ ROUTINE Instructions: Exacerbation of COPD (DC) Additional Instructions: FOLLOW UP WITH DR ZHANG AT HIS OFFICE IN 1-2 WEEKS --CALL FOR APPOINTMENT FOLLOW UP WITH DR NUNO AT HIS OFFICE ---CALL FOR APPOINTMENT FOLLOW UP WITH DR MANZANO -----CALL FOR APPOINTMENT CONTINUE ALL YOUR HOME MEDICATION ORDER NEW PRESCRIPTION GIVEN PREDNISONE 20 MG BY MOUTH DAILY FOR 3 DAYS 10 MG BY MOUTH DAILY FOR 3 DAYS 5 MG BY MOUTH DAILY CONTINOUS ROBUTUSSIN DM EVERY 6 HOURS NEEDED FOR COUGH ACTIVITY TOLERATED CALL DR ZHANG OR GO TO THE EMERGENCY ROOM IF SYMPTOMS RETURN OR WORSENING Referrals: Ralf Nuno MD [Staff Provider] - Hal Zhang MD [Staff Provider] - Lucho Manzano Jr., MD [Staff Provider] -
== END 2017-11-17 18:45 | disposition home or self-care (01) | DRG 191 ==
LOC: C.ER 15:07 → C.9E 17:14 → C.3T 19:07
PROVIDERS: ADMIT Internal Medicine; ATTEND Internal Medicine
PROC: 5A09357 Assistance with Respiratory Ventilation, Less than 24 Consecutive Hours, Continuous Positive Airway Pressure (ICD-10-PCS; principal; 2017-11-14)
DX: J44.1 Chronic obstructive pulmonary disease with (acute) exacerbation (principal); J45.901 Unspecified asthma with (acute) exacerbation; I13.0 Hypertensive heart and chronic kidney disease with heart failure and stage 1 through stage 4 chronic kidney disease, or unspecified chronic kidney disease; J44.0 Chronic obstructive pulmonary disease with (acute) lower respiratory infection; J20.9 Acute bronchitis, unspecified; N18.9 Chronic kidney disease, unspecified; Z87.891 Personal history of nicotine dependence; Z86.73 Personal history of transient ischemic attack (TIA), and cerebral infarction without residual deficits; Z85.048 Personal history of other malignant neoplasm of rectum, rectosigmoid junction, and anus; I50.9 Heart failure, unspecified; E78.00 Pure hypercholesterolemia, unspecified; G47.30 Sleep apnea, unspecified; G62.9 Polyneuropathy, unspecified; Z93.2 Ileostomy status

== ENCOUNTER 2017-11-21 20:56 | Observation (INO) | payer MEDICARE, BC ==
[2017-11-21 20:57] VITALS: BMI 24.2
[2017-11-21] MEDS ORDERED: Sodium Chloride 0.9% 1,000 ML IV ONE (21:10)
[2017-11-21] MEDS ORDERED: Albuterol-Ipratrop 3 mg / 0.5 (3 ml) UD INH STA ×2 (21:11→21:12)
--- NOTE | 2017-11-21 21:11 | C.PDOC ---
History Of Present Illness 67 year old male, whose PMHx includes COPD, presents to the ED for evaluation of shortness of breath which worsened throughout the day. Patient was recently discharged from the hospital 3 days ago after being admitted for COPD exacerbation. Patient denies fever, chills, chest pain, nausea, vomiting. Chief Complaint (Nursing): Respiratory Distress History Per: Patient History/Exam Limitations: no limitations Onset/Duration Of Symptoms: Hrs Current Symptoms Are (Timing): Worse Quality: denies: "Pain" Current Respiratory Medications: See Home Med List Associated Symptoms: denies: Fever, Chills, Chest Pain Additional History Per: Patient Past Medical History Reviewed: Historical Data, Nursing Documentation, Vital Signs Vital Signs: Last Vital Signs Temp 97.8 F 11/21/17 23:18 Pulse 90 11/21/17 23:18 Resp 24 11/21/17 23:18 BP 123/76 11/21/17 23:18 Pulse Ox 97 11/22/17 00:00 - Medical History PMH: Anemia, Anxiety, Arthritis (BACK), Asthma, Bronchitis, Cardia Arrhythmia ( SVT), CHF, COPD (Emphysema), Diabetes, Emphysema, HTN, Hypercholesterolemia, Kidney Stones, Pneumonia, Chronic Kidney Disease, Sleep Apnea (ON DALIRESP) Denies: Fractures, Gastritis Surgical History: Endoscopy - [facility] Procedures ASSISTANCE WITH RESPIRATORY VENTILATION, 24-96 HRS, CPAP (08/23/17) ASSISTANCE WITH RESPIRATORY VENTILATION, <24 HRS, CPAP (11/14/17) ASSISTANCE WITH RESPIRATORY VENTILATION, >96 HRS, CPAP (05/08/17) CONTINUOUS INVASIVE MECHANICAL VENTILATION <96 CONSEC HRS (11/29/14) DILATION OF RIGHT URETER WITH INTRALUMINAL DEVICE, ENDO (03/20/17) EXCISION OF SIGMOID COLON, ENDO, DIAGN (03/20/17) EXCISION OF STOMACH, ENDO, DIAGN (03/20/17) EXCISION OF TRANSVERSE COLON, ENDO, DIAGN (03/20/17) INFLUENZA VACCINATION (06/02/14) INSERT ENDOTRACHEAL TUBE (11/29/14) LARYGNOSCOPY AND OTH TRACHEOSCOPY (04/18/15) MEASURE OF CARDIAC SAMPL & PRESSURE, L HEART, PERC APPROACH (12/01/15) NON-INVASIVE MECHANICAL VENTILATION (04/18/15) RESECTION OF SIGMOID COLON, OPEN APPROACH (03/20/17) RESPIRATORY VENTILATION, GREATER THAN 96 CONSECUTIVE HOURS (03/20/17) Family History: States: Unknown Family Hx - Social History Hx Tobacco Use: Yes (8 years ppd smoker. quit 1.5 years ago) Hx Alcohol Use: No Hx Substance Use: No - Immunization History Hx Tetanus Toxoid Vaccination: Yes Hx Influenza Vaccination: Yes Hx Pneumococcal Vaccination: Yes (12/01/2014) Review Of Systems Constitutional: Negative for: Fever, Chills Cardiovascular: Negative for: Chest Pain Respiratory: Positive for: Shortness of Breath Gastrointestinal: Negative for: Nausea, Vomiting Physical Exam - Physical Exam Appears: Non-toxic, Other (in moderate respiratory distress ) Skin: Normal Color, Warm, Dry Head: Atraumatic, Normacephalic Eye(s): bilateral: Normal Inspection Oral Mucosa: Moist Neck: Supple Chest: Symmetrical, No Deformity, No Tenderness Cardiovascular: Rhythm Regular, No Murmur, Other (tachycardia ) Respiratory: Decreased Breath Sounds (bilaterally ), No Rales, No Rhonchi, Wheezing (generalized ) Extremity: Normal ROM, Capillary Refill (less than 2 seconds ) Neurological/Psych: Oriented x3, Normal Speech, Normal Cognition ED Course And Treatment - Laboratory Results Result Diagrams: 11/21/17 21:14 11/21/17 21:14 ECG Interpretation: Normal, No Acute Changes Interpretation Of ECG: Sinus tachycardia with PAC, prsence of Right Acis Rate From EC O2 Sat by Pulse Oximetry: 99 (on RA) Pulse Ox Interpretation: Normal - Radiology CXR: Interpreted by Me CXR Interpretation: Yes: No Acute Disease. No: Infiltrates Progress Note: Bloodwork, CXR, EKG ordered. Solu-Medrol IVP, Duoneb INH, and IV Fluids administered. 21:54 On re-exam, patient still appears to be short of breath. Lung exam shows diminished breath sounds. Will give Magnesium Sulfate IVP. Disposition Discussed With : Hal Garcia Doctor Will See Patient In The: Hospital Counseled Patient/Family Regarding: Diagnosis - Disposition Disposition: HOSPITALIZED Disposition Time: 22:09 Condition: STABLE - POA Present On Arrival: None - Clinical Impression Clinical Impression: COPD exacerbation, Hyperglycemia - Scribe Statement The provider has reviewed the documentation as recorded by the Scribe (Steph Benitez) Provider Attestation: All medical record entries made by the Scribe were at my direction and personally dictated by me. I have reviewed the chart and agree that the record accurately reflects my personal performance of the history, physical exam, medical decision making, and the department course for this patient. I have also personally directed, reviewed, and agree with the discharge instructions and disposition.
[2017-11-21] MEDS ORDERED: Albuterol-Ipratrop 3 mg / 0.5 (3 ml) UD ONE ×2 (21:12→22:43)
[2017-11-21 21:18] LABS: BASO # 0.1 K/uL (0.0-0.2); BASO % 0.9 % (0.0-2.0); EOS # 0.2 K/uL (0.0-0.7); HEMOGLOBIN 11.2 g/dL (12.0-18.0); LYMPH # 1.7 K/uL (1.0-4.3); LYMPH % 15.2 % (20.0-40.0); MEAN CELL VOLUME 71.2 fL (80.0-94.0); MEAN CORPUSCULAR HEMOGLOBIN 23.1 pg (27.0-31.0); MEAN CORPUSCULAR HGB CONC 32.4 g/dL (33.0-37.0); MEAN PLATELET VOLUME 8.3 fL (7.2-11.7); MONO # 0.7 K/uL (0.0-0.8); MONO % 6.8 % (0.0-10.0); NEUT # 8.2 K/uL (1.8-7.0); NEUT % 75.1 % (50.0-75.0); NRBC % 0.1 % (0.0-2.0); RBC 4.86 Mil/uL (4.40-5.90)
[2017-11-21 21:27] LABS: PROTHROMBIN TIME 10.8 SECONDS (9.7-12.2)
[2017-11-21 21:31] LABS: ALB/GLOB RATIO 1.4 (1.0-2.1); ALT/SGPT 44 U/L (21-72); AST/SGOT 28 U/L (17-59); BLOOD UREA NITROGEN 10 mg/dL (9-20); CALCIUM 8.9 mg/dl (8.6-10.4); GFR AFRICAN-AMERICAN > 60; GFR NON-AFRICAN AMERICAN > 60
[2017-11-21 21:42] LABS: B-TYPE NATRIURETIC PEPTIDE 17.2 pg/mL (0-900)
[2017-11-21] MEDS ORDERED: Magnesium Sulfate 1 gm in D5W 1 GM/100 ML BAG IVPB ONE (21:54)
[2017-11-21] MEDS ORDERED: Magnesium Sulfate 1 gm in D5W 2 GM/200 ML BAG IVPB ONE (21:56)
--- NOTE | 2017-11-21 23:42 | CP.PCM.HP ---
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 His breathing problems have not improved since discharge so he went to the ED yesterday. Patient denies extremity swelling, palpitations, fever or chills. Patient has multiple painless ecchymoses on both his forearms which he notes are from his chronic prednisone use. PMHx: COPD, CHF, arthritis, steroid-induced DM, sleep apnea, colon cancer PSH: sigmoid anastamosis, endoscopy 11/07, cataract repair Home Meds: duonebs, 10mg prednisone PO QD, roflumilast, Allergies: acetaminophen, fish, shrimp, IV dye SH: 8 pack-year tobacco habit quit 1.5 years ago, quit alcohol 15 years ago, no drug use. Past Patient History - Infectious Disease Hx of Infectious Diseases: None - Past Medical History & Family History Past Medical History?: Yes - Past Social History Smoking Status: Former Smoker - CARDIAC Hx Cardia Arrhythmia: Yes (SVT) Hx Congestive Heart Failure: Yes Hx Hypercholesterolemia: Yes Hx Hypertension: Yes - PULMONARY Hx Asthma: Yes Hx Bronchitis: Yes Hx Chronic Obstructive Pulmonary Disease (COPD): Yes (Emphysema) Hx Emphysema: Yes Hx Pneumonia: Yes Hx Sleep Apnea: Yes (ON DALIRESP) - NEUROLOGICAL HX Cerebrovascular Accident: Yes - HEENT Hx HEENT Problems: Yes Hx Cataracts: Yes (left cataract removed, r cataract) Hx Deafness: No Hx Difficulty Chewing: No Hx Epistaxis: No Hx Glaucoma: No Hx Macular Degeneration: No Other/Comment: wears eyeglasses for distance - RENAL Hx Chronic Kidney Disease: Yes Hx Kidney Stones: Yes - ENDOCRINE/METABOLIC Hx Diabetes Mellitus Type 2: Yes - HEMATOLOGICAL/ONCOLOGICAL Hx Anemia: Yes - INTEGUMENTARY Hx Dermatological Problems: No Hx Psoriasis: Yes Other/Comment: arms with reddish spots and w/ dark discoloration - MUSCULOSKELETAL/RHEUMATOLOGICAL Hx Arthritis: Yes (BACK) Hx Fractures: No - GASTROINTESTINAL Hx Gastritis: No - PSYCHIATRIC Hx Anxiety: Yes Hx Substance Use: No - SURGICAL HISTORY Hx Surgeries: Yes Hx Cataract Extraction: Yes (left eye, right eye) Hx Cardiac Catheterization: Yes (11/2015) Hx Eye Surgery: Yes Hx Pulmonary Surgery: Yes Other/Comment: colon resection with right ileostomy - ANESTHESIA Hx Anesthesia: Yes Hx Anesthesia Reactions: No Hx Malignant Hyperthermia: No Meds Allergies/Adverse Reactions: Allergies Allergy/AdvReac Type Severity Reaction Status Date / Time acetaminophen [From Tylenol] Allergy RASH Verified 11/14/17 15:19 FISH Allergy SWELLING Verified 11/14/17 15:19 shrimp Allergy SHORTNESS Verified 11/14/17 15:19 OF BREATH IV dye Allergy Severe ANAPHYLAXIS Uncoded 11/14/17 15:19 Results - Vital Signs Recent Vital Signs: Last Vital Signs Temp 97.8 F 11/21/17 23:18 Pulse 90 11/21/17 23:18 Resp 24 11/21/17 23:18 BP 123/76 11/21/17 23:18 Pulse Ox 99 11/21/17 23:18 - Labs Result Diagrams: 11/21/17 21:14 11/21/17 21:14 Labs: Laboratory Results - last 24 hr 11/21/17 11/21/17 11/21/17 21:14 21:14 21:14 WBC 11.0 H RBC 4.86 Hgb 11.2 L Hct 34.6 L MCV 71.2 L MCH 23.1 L MCHC 32.4 L RDW 20.0 H Plt Count 304 MPV 8.3 Neut % (Auto) 75.1 H Lymph % (Auto) 15.2 L [place] % (Auto) 6.8 Eos % (Auto) 2.0 Baso % (Auto) 0.9 Neut # (Auto) 8.2 H Lymph # (Auto) 1.7 [place] # (Auto) 0.7 Eos # (Auto) 0.2 Baso # (Auto) 0.1 PT 10.8 INR 1.0 APTT 27 D-Dimer, Quantitative 241 Sodium 138 Potassium 3.9 Chloride 97 L Carbon Dioxide 28 Anion Gap 17 BUN 10 Creatinine 0.7 L Est GFR ( Amer) > 60 Est GFR (Non-Af Amer) > 60 Random Glucose 264 H Calcium 8.9 Total Bilirubin 0.3 AST 28 ALT 44 Alkaline Phosphatase 126 Troponin I < 0.0120 NT-Pro-B Natriuret Pep 17.2 Total Protein 6.9 Albumin 4.0 Globulin 2.9 Albumin/Globulin Ratio 1.4 Assessment & Plan (1) COPD exacerbation Assessment and Plan: Assessment and Plan: 1. Acute COPD exacerbation - Saturating 97-100% - CXR 11/21: biapical pleural thickening with upper lobe granulomatous changes - WBC 11 - duonebs - pulmicort - advair - singulair - solumedrol - BiPAP Status: Acute Priority: Medium (2) Hyperglycemia Status: Acute
[2017-11-22] MEDS: guaiFENesin DM 100 mg-10 mg/5 ml UD PO SCH ×5 (00:30→22:44)
[2017-11-22] MEDS: Albuterol-Ipratrop 3 mg / 0.5 (3 ml) UD INH SCH ×4 (01:24→20:21)
[2017-11-22] MEDS: Budesonide 0.5 mg/2 ml Inhal Susp UD IH SCH ×2 (07:10→20:21)
[2017-11-22] MEDS: Fluticasone-Salmeterol 250-50mcg Diskus INH SCH ×2 (07:54→20:21)
[2017-11-22] MEDS ORDERED: Fluticasone-Salmeterol 250-50mcg Diskus INH SCH (08:00)
--- NOTE | 2017-11-22 08:28 | RAD ---
Chest x-ray single frontal view History: Shortness of breath. Comparison: 11/14/2017 Findings: Biapical pleural thickening with upper lobe granulomatous changes. Bibasilar breast shadows. Heart size within normal limits. Tortuous aorta. Degenerative changes in the spine with paravertebral osteophytes. Impression: Biapical pleural thickening with upper lobe granulomatous changes. Bibasilar breast shadows. Heart size within normal limits. Tortuous aorta.
[2017-11-22] MEDS: (Novolin R) Insulin Human Regular 100 units/ml vial SC SCH ×4 (08:30→22:07)
[2017-11-22] MEDS: MethylPREDNISolone 40 mg Vial IV SCH ×2 (10:55→22:42)
[2017-11-22] MEDS: Pantoprazole 40 mg EC Tab PO SCH (10:55)
[2017-11-22] MEDS: Vitamin B Complex/Vitamin C Tab PO SCH (10:55)
[2017-11-22] MEDS: Enoxaparin 40 mg Syringe SC SCH (10:55)
--- NOTE | 2017-11-22 12:11 | CP.PCM.CON ---
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 His breathing problems have not improved since discharge so he went to the ED yesterday. Patient denies extremity swelling, palpitations, fever or chills. Patient has multiple painless ecchymoses on both his forearms which he notes are from his chronic prednisone use. PMHx: COPD, CHF, arthritis, steroid-induced DM, sleep apnea, colon cancer PSH: sigmoid anastamosis, endoscopy 11/07, cataract repair Home Meds: duonebs, 10mg prednisone PO QD, roflumilast, Allergies: acetaminophen, fish, shrimp, IV dye SH: 8 pack-year tobacco habit quit 1.5 years ago, quit alcohol 15 years ago, no drug use. Assessment and Plan: 1. Acute COPD exacerbation - Saturating 97-100% - CXR 11/21: biapical pleural thickening with upper lobe granulomatous changes - WBC 11 - duonebs - pulmicort - advair - singulair - solumedrol - BiPAP Past Patient History - Infectious Disease Hx of Infectious Diseases: None - Past Medical History & Family History Past Medical History?: Yes - Past Social History Smoking Status: Former Smoker - CARDIAC Hx Cardia Arrhythmia: Yes (SVT) Hx Congestive Heart Failure: Yes Hx Hypercholesterolemia: Yes Hx Hypertension: Yes - PULMONARY Hx Asthma: Yes Hx Bronchitis: Yes Hx Chronic Obstructive Pulmonary Disease (COPD): Yes (Emphysema) Hx Emphysema: Yes Hx Pneumonia: Yes Hx Sleep Apnea: Yes (ON DALIRESP) - NEUROLOGICAL HX Cerebrovascular Accident: Yes - HEENT Hx HEENT Problems: Yes Hx Cataracts: Yes (left cataract removed, r cataract) Hx Deafness: No Hx Difficulty Chewing: No Hx Epistaxis: No Hx Glaucoma: No Hx Macular Degeneration: No Other/Comment: wears eyeglasses for distance - RENAL Hx Chronic Kidney Disease: Yes Hx Kidney Stones: Yes - ENDOCRINE/METABOLIC Hx Diabetes Mellitus Type 2: Yes - HEMATOLOGICAL/ONCOLOGICAL Hx Anemia: Yes - INTEGUMENTARY Hx Dermatological Problems: No Hx Psoriasis: Yes Other/Comment: arms with reddish spots and w/ dark discoloration - MUSCULOSKELETAL/RHEUMATOLOGICAL Hx Arthritis: Yes (BACK) Hx Fractures: No - GASTROINTESTINAL Hx Gastritis: No - PSYCHIATRIC Hx Anxiety: Yes Hx Substance Use: No - SURGICAL HISTORY Hx Surgeries: Yes Hx Cataract Extraction: Yes (left eye, right eye) Hx Cardiac Catheterization: Yes (11/2015) Hx Eye Surgery: Yes Hx Pulmonary Surgery: Yes Other/Comment: colon resection with right ileostomy - ANESTHESIA Hx Anesthesia: Yes Hx Anesthesia Reactions: No Hx Malignant Hyperthermia: No Meds Allergies/Adverse Reactions: Allergies Allergy/AdvReac Type Severity Reaction Status Date / Time acetaminophen [From Tylenol] Allergy RASH Verified 11/14/17 15:19 FISH Allergy SWELLING Verified 11/14/17 15:19 shrimp Allergy SHORTNESS Verified 11/14/17 15:19 OF BREATH IV dye Allergy Severe ANAPHYLAXIS Uncoded 11/14/17 15:19 - Medications Medications: Current Medications Albuterol/Ipratropium (Duoneb 3 Mg/0.5 Mg (3 Ml) Ud) 3 ml INH RQ6 [facility] Last Admin: 11/22/17 07:10 Dose: 3 ml Alprazolam (Xanax) 0.5 mg PO Q12 [facility] Stop: 11/29/17 10:01 Last Admin: 11/22/17 10:55 Dose: 0.5 mg Budesonide (Pulmicort Respules) 0.5 mg IH RQ12 [facility] Last Admin: 11/22/17 07:10 Dose: 0.5 mg Enoxaparin Sodium (Lovenox) 40 mg SC DAILY [facility] Last Admin: 11/22/17 10:55 Dose: 40 mg Guaifenesin/Dextromethorphan (Robitussin Dm) 5 ml PO Q6H [facility] Last Admin: 11/22/17 10:54 Dose: 5 ml Insulin Human Regular (Novolin R) 0 unit SC ACHS [facility] PRN Reason: Protocol Last Admin: 11/22/17 08:30 Dose: 2 unit Metformin HCl (Glucophage) 1,000 mg PO BID [facility] Last Admin: 11/22/17 10:54 Dose: 1,000 mg Methylprednisolone (Solu-Medrol) 40 mg IV Q12 [facility] Last Admin: 11/22/17 10:55 Dose: 40 mg Montelukast Sodium (Singulair) 10 mg PO HS [facility] Pantoprazole Sodium (Protonix Ec Tab) 40 mg PO DAILY [facility] Last Admin: 11/22/17 10:55 Dose: 40 mg Pregabalin (Lyrica) 50 mg PO BID [facility] Last Admin: 11/22/17 10:55 Dose: 50 mg Roflumilast (Daliresp) 500 mcg PO DAILY [facility] Last Admin: 11/22/17 10:55 Dose: 500 mcg Fluticasone/Salmeterol (Advair Diskus 250/50) 1 puff INH RQ12 [facility] Last Admin: 11/22/17 07:54 Dose: 1 puff Vitamin B Complex/Vitamin C (Berocca) 1 tab PO DAILY [facility] Last Admin: 11/22/17 10:55 Dose: 1 tab Results - Vital Signs Recent Vital Signs: Last Vital Signs Temp 97.6 F 11/22/17 07:00 Pulse 96 H 11/22/17 07:00 Resp 20 11/22/17 07:00 BP 121/70 11/22/17 07:00 Pulse Ox 97 11/22/17 09:01 - Labs Result Diagrams: 11/21/17 21:14 11/21/17 21:14 Labs: Laboratory Results - last 24 hr 11/21/17 11/21/17 11/21/17 21:14 21:14 21:14 WBC 11.0 H RBC 4.86 Hgb 11.2 L Hct 34.6 L MCV 71.2 L MCH 23.1 L MCHC 32.4 L RDW 20.0 H Plt Count 304 MPV 8.3 Neut % (Auto) 75.1 H Lymph % (Auto) 15.2 L [place] % (Auto) 6.8 Eos % (Auto) 2.0 Baso % (Auto) 0.9 Neut # (Auto) 8.2 H Lymph # (Auto) 1.7 [place] # (Auto) 0.7 Eos # (Auto) 0.2 Baso # (Auto) 0.1 PT 10.8 INR 1.0 APTT 27 D-Dimer, Quantitative 241 Sodium 138 Potassium 3.9 Chloride 97 L Carbon Dioxide 28 Anion Gap 17 BUN 10 Creatinine 0.7 L Est GFR ( Amer) > 60 Est GFR (Non-Af Amer) > 60 POC Glucose (mg/dL) Random Glucose 264 H Calcium 8.9 Total Bilirubin 0.3 AST 28 ALT 44 Alkaline Phosphatase 126 Troponin I < 0.0120 NT-Pro-B Natriuret Pep 17.2 Total Protein 6.9 Albumin 4.0 Globulin 2.9 Albumin/Globulin Ratio 1.4 11/22/17 11/22/17 07:06 11:15 WBC RBC Hgb Hct MCV MCH MCHC RDW Plt Count MPV Neut % (Auto) Lymph % (Auto) [place] % (Auto) Eos % (Auto) Baso % (Auto) Neut # (Auto) Lymph # (Auto) [place] # (Auto) Eos # (Auto) Baso # (Auto) PT INR APTT D-Dimer, Quantitative Sodium Potassium Chloride Carbon Dioxide Anion Gap BUN Creatinine Est GFR ( Amer) Est GFR (Non-Af Amer) POC Glucose (mg/dL) 228 H 257 H Random Glucose Calcium Total Bilirubin AST ALT Alkaline Phosphatase Troponin I NT-Pro-B Natriuret Pep Total Protein Albumin Globulin Albumin/Globulin Ratio
--- NOTE | 2017-11-22 23:33 | CP.PCM.PN ---
Subjective - Date & Time of Evaluation Date of Evaluation: 11/22/17 Time of Evaluation: 20:00 - Subjective Subjective: PT STILL COUGHING, LESS SHORT OF BREATH Objective - Vital Signs/Intake and Output Vital Signs (last 24 hours): Temp Pulse Resp BP Pulse Ox 97.7 F 118 H 22 127/80 96 11/22/17 15:00 11/22/17 15:00 11/22/17 15:00 11/22/17 15:00 11/22/17 21:37 Intake and Output: 11/22/17 11/23/17 18:59 06:59 Intake Total 700 480 Balance 700 480 - Medications Medications: Current Medications Albuterol/Ipratropium (Duoneb 3 Mg/0.5 Mg (3 Ml) Ud) 3 ml INH RQ6 [facility] Last Admin: 11/22/17 20:21 Dose: 3 ml Alprazolam (Xanax) 0.5 mg PO Q12 [facility] Stop: 11/29/17 10:01 Last Admin: 11/22/17 22:42 Dose: 0.5 mg Budesonide (Pulmicort Respules) 0.5 mg IH RQ12 [facility] Last Admin: 11/22/17 20:21 Dose: 0.5 mg Enoxaparin Sodium (Lovenox) 40 mg SC DAILY [facility] Last Admin: 11/22/17 10:55 Dose: 40 mg Guaifenesin/Dextromethorphan (Robitussin Dm) 5 ml PO Q6H [facility] Last Admin: 11/22/17 22:44 Dose: 5 ml Insulin Human Regular (Novolin R) [address] [facility] PRN Reason: Protocol Last Admin: 11/22/17 22:07 Dose: Not Given Metformin HCl (Glucophage) 1,000 mg PO BID [facility] Last Admin: 11/22/17 18:45 Dose: 1,000 mg Methylprednisolone (Solu-Medrol) 40 mg IV Q12 [facility] Last Admin: 11/22/17 22:42 Dose: 40 mg Montelukast Sodium (Singulair) 10 mg PO HS [facility] Last Admin: 11/22/17 22:42 Dose: 10 mg Pantoprazole Sodium (Protonix Ec Tab) 40 mg PO DAILY [facility] Last Admin: 11/22/17 10:55 Dose: 40 mg Pregabalin (Lyrica) 50 mg PO BID [facility] Last Admin: 11/22/17 18:45 Dose: 50 mg Roflumilast (Daliresp) 500 mcg PO DAILY [facility] Last Admin: 11/22/17 10:55 Dose: 500 mcg Fluticasone/Salmeterol (Advair Diskus 250/50) 1 puff INH RQ12 [facility] Last Admin: 11/22/17 20:21 Dose: 1 puff Vitamin B Complex/Vitamin C (Berocca) 1 tab PO DAILY [facility] Last Admin: 11/22/17 10:55 Dose: 1 tab - Labs Labs: 11/21/17 21:14 11/21/17 21:14 PT 10.8 SECONDS (9.7-12.2) 11/21/17 21:14 INR 1.0 11/21/17 21:14 APTT 27 SECONDS (21-34) 11/21/17 21:14 Assessment and Plan (1) COPD exacerbation Status: Acute (2) Hyperglycemia Status: Acute
[2017-11-23 01:46] VITALS: RESP 20; O2SAT 99
[2017-11-23] MEDS: Albuterol-Ipratrop 3 mg / 0.5 (3 ml) UD INH SCH ×3 (01:50→13:00)
[2017-11-23] MEDS: guaiFENesin DM 100 mg-10 mg/5 ml UD PO SCH ×2 (07:41→10:54)
[2017-11-23] MEDS: Budesonide 0.5 mg/2 ml Inhal Susp UD IH SCH (07:43)
[2017-11-23] MEDS: Fluticasone-Salmeterol 250-50mcg Diskus INH SCH (07:43)
[2017-11-23] MEDS: (Novolin R) Insulin Human Regular 100 units/ml vial SC SCH ×2 (08:30→12:32)
[2017-11-23] MEDS: MethylPREDNISolone 40 mg Vial IV SCH (10:53)
[2017-11-23] MEDS: Pantoprazole 40 mg EC Tab PO SCH (10:54)
[2017-11-23] MEDS: Vitamin B Complex/Vitamin C Tab PO SCH (10:54)
[2017-11-23] MEDS: Enoxaparin 40 mg Syringe SC SCH (11:00)
--- NOTE | 2017-11-23 14:03 | CP.PCM.PN ---
Subjective - Date & Time of Evaluation Date of Evaluation: 11/23/17 Time of Evaluation: 09:20 - Subjective Subjective: Patient seen and examined at bedside. Today, the patient reports that his shortness of breath is unchanged, however he sounds better. Patient is due for discharge today. Assessment and Plan: 1. Acute COPD exacerbation - Saturating 97-100% - CXR 11/21: biapical pleural thickening with upper lobe granulomatous changes - WBC 11 - duonebs - pulmicort - singulair - solumedrol stopped switch to PO steroids - BiPAP Objective - Vital Signs/Intake and Output Vital Signs (last 24 hours): Temp Pulse Resp BP Pulse Ox 98.2 F 88 20 117/62 99 11/23/17 00:00 11/23/17 07:44 11/23/17 00:00 11/23/17 00:00 11/23/17 00:00 Intake and Output: 11/23/17 11/23/17 06:59 18:59 Intake Total 480 Balance 480 - Medications Medications: Current Medications Albuterol/Ipratropium (Duoneb 3 Mg/0.5 Mg (3 Ml) Ud) 3 ml INH RQ6 [facility] Last Admin: 11/23/17 13:00 Dose: 3 ml Alprazolam (Xanax) 0.5 mg PO Q12 [facility] Stop: 11/29/17 10:01 Last Admin: 11/23/17 11:00 Dose: 0.5 mg Budesonide (Pulmicort Respules) 0.5 mg IH RQ12 [facility] Last Admin: 11/23/17 07:43 Dose: 0.5 mg Enoxaparin Sodium (Lovenox) 40 mg SC DAILY [facility] Last Admin: 11/23/17 11:00 Dose: 40 mg Guaifenesin/Dextromethorphan (Robitussin Dm) 5 ml PO Q6H [facility] Last Admin: 11/23/17 10:54 Dose: 5 ml Insulin Human Regular (Novolin R) 0 unit SC ACHS [facility] PRN Reason: Protocol Last Admin: 11/23/17 12:32 Dose: 2 unit Metformin HCl (Glucophage) 1,000 mg PO BID [facility] Last Admin: 11/23/17 10:53 Dose: 1,000 mg Methylprednisolone (Solu-Medrol) 40 mg IV Q12 [facility] Last Admin: 11/23/17 10:53 Dose: 40 mg Montelukast Sodium (Singulair) 10 mg PO HS [facility] Last Admin: 11/22/17 22:42 Dose: 10 mg Pantoprazole Sodium (Protonix Ec Tab) 40 mg PO DAILY [facility] Last Admin: 11/23/17 10:54 Dose: 40 mg Pregabalin (Lyrica) 50 mg PO BID [facility] Last Admin: 11/23/17 11:00 Dose: 50 mg Roflumilast (Daliresp) 500 mcg PO DAILY [facility] Last Admin: 11/23/17 10:54 Dose: 500 mcg Fluticasone/Salmeterol (Advair Diskus 250/50) 1 puff INH RQ12 [facility] Last Admin: 11/23/17 07:43 Dose: 1 puff Vitamin B Complex/Vitamin C (Berocca) 1 tab PO DAILY [facility] Last Admin: 11/23/17 10:54 Dose: 1 tab - Labs Labs: 11/21/17 21:14 11/21/17 21:14 PT 10.8 SECONDS (9.7-12.2) 11/21/17 21:14 INR 1.0 11/21/17 21:14 APTT 27 SECONDS (21-34) 11/21/17 21:14
--- NOTE | 2017-11-23 16:49 | CP.PCM.PN ---
Subjective - Date & Time of Evaluation Date of Evaluation: 11/23/17 Time of Evaluation: 10:00 - Subjective Subjective: Alert and orientedx3, denies chest pains or sob. Objective - Vital Signs/Intake and Output Vital Signs (last 24 hours): Temp Pulse Resp BP Pulse Ox 98.2 F 88 20 117/62 99 11/23/17 00:00 11/23/17 07:44 11/23/17 00:00 11/23/17 00:00 11/23/17 00:00 Intake and Output: 11/23/17 11/23/17 06:59 18:59 Intake Total 480 Balance 480 - Labs Labs: 11/21/17 21:14 11/21/17 21:14 PT 10.8 SECONDS (9.7-12.2) 11/21/17 21:14 INR 1.0 11/21/17 21:14 APTT 27 SECONDS (21-34) 11/21/17 21:14 Assessment and Plan - Assessment and Plan (Free Text) Assessment: Patient is seen and examined. Diagnosed with COPD exacerbation, no acute distress now. no sob or chest pains. on bipap and oxygen at home. Discussed with DR Nuno and DR Garcia, discharged home on home meds. Advised to follow up with PMD in the office in 1 week.
[2017-11-23 17:02] VITALS: BP 124/75; PULSE 95; TEMP 98.1
--- NOTE | 2017-11-23 23:29 | CP.PCM.DIS ---
Provider - Provider Date of Admission: 11/21/17 22:11 Attending physician: Hal Garcia MD Diagnosis - Discharge Diagnosis (1) COPD exacerbation Status: Acute Priority: Medium (2) Hyperglycemia Status: Acute Hospital Course - Lab Results Lab Results: Most Recent Lab Values WBC 11.0 K/uL (4.8-10.8) H 11/21/17 21:14 RBC 4.86 Mil/uL (4.40-5.90) 11/21/17 21:14 Hgb 11.2 g/dL (12.0-18.0) L 11/21/17 21:14 Hct 34.6 % (35.0-51.0) L 11/21/17 21:14 MCV 71.2 fL (80.0-94.0) L 11/21/17 21:14 MCH 23.1 pg (27.0-31.0) L 11/21/17 21:14 MCHC 32.4 g/dL (33.0-37.0) L 11/21/17 21:14 RDW 20.0 % (11.5-14.5) H 11/21/17 21:14 Plt Count 304 K/uL (130-400) 11/21/17 21:14 MPV 8.3 fL (7.2-11.7) 11/21/17 21:14 Neut % (Auto) 75.1 % (50.0-75.0) H 11/21/17 21:14 Lymph % (Auto) 15.2 % (20.0-40.0) L 11/21/17 21:14 [place] % (Auto) 6.8 % (0.0-10.0) 11/21/17 21:14 Eos % (Auto) 2.0 % (0.0-4.0) 11/21/17 21:14 Baso % (Auto) 0.9 % (0.0-2.0) 11/21/17 21:14 Neut # (Auto) 8.2 K/uL (1.8-7.0) H 11/21/17 21:14 Lymph # (Auto) 1.7 K/uL (1.0-4.3) 11/21/17 21:14 [place] # (Auto) 0.7 K/uL (0.0-0.8) 11/21/17 21:14 Eos # (Auto) 0.2 K/uL (0.0-0.7) 11/21/17 21:14 Baso # (Auto) 0.1 K/uL (0.0-0.2) 11/21/17 21:14 PT 10.8 SECONDS (9.7-12.2) 11/21/17 21:14 INR 1.0 11/21/17 21:14 APTT 27 SECONDS (21-34) 11/21/17 21:14 D-Dimer, Quantitative 241 ng/mlDDU (0-243) 11/21/17 21:14 Sodium 138 mmol/L (132-148) 11/21/17 21:14 Potassium 3.9 mmol/L (3.6-5.2) 11/21/17 21:14 Chloride 97 mmol/L (98-107) L 11/21/17 21:14 Carbon Dioxide 28 mmol/L (22-30) 11/21/17 21:14 Anion Gap 17 (10-20) 11/21/17 21:14 BUN 10 mg/dL (9-20) 11/21/17 21:14 Creatinine 0.7 mg/dL (0.8-1.5) L 11/21/17 21:14 Est GFR ( Amer) > 60 11/21/17 21:14 Est GFR (Non-Af Amer) > 60 11/21/17 21:14 POC Glucose (mg/dL) 213 mg/dL (65-110) H 11/23/17 11:35 Random Glucose 264 mg/dL (75-110) H 11/21/17 21:14 Calcium 8.9 mg/dl (8.6-10.4) 11/21/17 21:14 Total Bilirubin 0.3 mg/dL (0.2-1.3) 11/21/17 21:14 AST 28 U/L (17-59) 11/21/17 21:14 ALT 44 U/L (21-72) 11/21/17 21:14 Alkaline Phosphatase 126 U/L (38-126) 11/21/17 21:14 Troponin I < 0.0120 ng/mL (0.00-0.120) 11/21/17 21:14 NT-Pro-B Natriuret Pep 17.2 pg/mL (0-900) 11/21/17 21:14 Total Protein 6.9 g/dL (6.3-8.3) 11/21/17 21:14 Albumin 4.0 g/dL (3.5-5.0) 11/21/17 21:14 Globulin 2.9 gm/dL (2.2-3.9) 11/21/17 21:14 Albumin/Globulin Ratio 1.4 (1.0-2.1) 11/21/17 21:14 - Hospital Course Hospital Course: Patient is seen and examined. Diagnosed with COPD exacerbation, no acute distress now. no sob or chest pains. on bipap and oxygen at home. Pt is to be discharged home on home meds. Advised to follow up with PMD in the office in 1 week Discharge Plan - Follow Up Plan Condition: STABLE Disposition: HOME/ ROUTINE Instructions: Hyperglycemia, Adult (DC), Exacerbation of COPD Referrals: Hal Garcia MD [Staff Provider] -
== END 2017-11-23 14:03 | disposition home or self-care (01) ==
LOC: C.ER 20:56 → C.9E 22:11 → C.3T 22:56
PROVIDERS: ADMIT Internal Medicine; ATTEND Internal Medicine
DX: J44.1 Chronic obstructive pulmonary disease with (acute) exacerbation (principal); E11.22 Type 2 diabetes mellitus with diabetic chronic kidney disease; E11.65 Type 2 diabetes mellitus with hyperglycemia; Z87.442 Personal history of urinary calculi; I50.9 Heart failure, unspecified; I13.0 Hypertensive heart and chronic kidney disease with heart failure and stage 1 through stage 4 chronic kidney disease, or unspecified chronic kidney disease; N18.9 Chronic kidney disease, unspecified; G47.30 Sleep apnea, unspecified; E78.00 Pure hypercholesterolemia, unspecified; I47.1 Supraventricular tachycardia; F41.9 Anxiety disorder, unspecified; D64.9 Anemia, unspecified; M47.9 Spondylosis, unspecified; Z87.891 Personal history of nicotine dependence; R58 Hemorrhage, not elsewhere classified; Z85.038 Personal history of other malignant neoplasm of large intestine; E09.65 Drug or chemical induced diabetes mellitus with hyperglycemia; Z86.73 Personal history of transient ischemic attack (TIA), and cerebral infarction without residual deficits; L40.9 Psoriasis, unspecified; Z90.49 Acquired absence of other specified parts of digestive tract; Z93.2 Ileostomy status; Z88.8 Allergy status to other drugs, medicaments and biological substances; Z91.013 Allergy to seafood; Z91.041 Radiographic dye allergy status; Z79.52 Long term (current) use of systemic steroids; Z99.81 Dependence on supplemental oxygen; Z79.51 Long term (current) use of inhaled steroids; Z79.84 Long term (current) use of oral hypoglycemic drugs; T38.0X5A Adverse effect of glucocorticoids and synthetic analogues, initial encounter
CPT/HCPCS: 71045; 80053; 82948; 83880; 84484; 85025; 85378; 85610; 85730; 94640; 94660; 96374; 97110; 97116; 97162; 99284; G0378; G8978; G8979; J1650; J2920; J2930; J3475; J7040

== ENCOUNTER 2017-12-04 08:44 | Inpatient (IN) | payer MEDICARE, BC ==
[2017-12-04 08:44] VITALS: BMI 24.2
[2017-12-04] MEDS ORDERED: Albuterol-Ipratrop 3 mg / 0.5 (3 ml) UD IH STA ×3 (09:37→09:38)
[2017-12-04] MEDS ORDERED: Sodium Chloride 0.9% 1,000 ML IV ONE (09:38)
--- NOTE | 2017-12-04 09:39 | C.PDOC ---
History Of Present Illness 67 yo male COPD w/frequent exacerbation ( last 11/17 and that required hospitalization, bipap), chronic CHF BIBA for evaluation of SOB gradually developed since today AM. Pt sts,w as at office, developed more chest tightness, wheezing. As per EMS, pt received Solumedrol 125 IV, Magnesium Sulfate 2gIV and neb tx #3. At present time, pt still c/o chest tightness, although speak full sentences. Patient denies extremity swelling, palpitations, fever or chills. Patient has multiple painless ecchymoses on both his forearms which he notes are from his chronic prednisone use. PMHx: COPD, CHF, arthritis, steroid-induced DM, sleep apnea, colon cancer PSH: sigmoid anastamosis, endoscopy 11/07, cataract repair Home Meds: duonebs, 10mg prednisone PO QD, roflumilast, Allergies: acetaminophen, fish, shrimp, IV dye SH: 8 pack-year tobacco habit quit 1.5 years ago, quit alcohol 15 years ago, no drug use. Time Seen by Provider: 12/04/17 09:00 Chief Complaint (Nursing): Shortness Of Breath History Per: Patient, EMS Past Medical History Reviewed: Historical Data, Nursing Documentation, Vital Signs Vital Signs: Last Vital Signs Temp 97.4 F L 12/04/17 15:13 Pulse 123 H 12/04/17 16:09 Resp 27 H 12/04/17 16:09 BP 112/62 12/04/17 15:13 Pulse Ox 98 12/04/17 16:09 - Medical History PMH: Anemia, Anxiety, Arthritis (BACK), Asthma, Bronchitis, Cardia Arrhythmia ( SVT), CHF, COPD (Emphysema), Diabetes, Emphysema, HTN, Hypercholesterolemia, Kidney Stones, Pneumonia, Chronic Kidney Disease, Sleep Apnea (ON DALIRESP) Denies: Fractures, Gastritis Surgical History: Endoscopy - [facility] Procedures ASSISTANCE WITH RESPIRATORY VENTILATION, 24-96 HRS, CPAP (08/23/17) ASSISTANCE WITH RESPIRATORY VENTILATION, <24 HRS, CPAP (11/14/17) ASSISTANCE WITH RESPIRATORY VENTILATION, >96 HRS, CPAP (05/08/17) CONTINUOUS INVASIVE MECHANICAL VENTILATION <96 CONSEC HRS (11/29/14) DILATION OF RIGHT URETER WITH INTRALUMINAL DEVICE, ENDO (03/20/17) EXCISION OF SIGMOID COLON, ENDO, DIAGN (03/20/17) EXCISION OF STOMACH, ENDO, DIAGN (03/20/17) EXCISION OF TRANSVERSE COLON, ENDO, DIAGN (03/20/17) INFLUENZA VACCINATION (06/02/14) INSERT ENDOTRACHEAL TUBE (11/29/14) LARYGNOSCOPY AND OTH TRACHEOSCOPY (04/18/15) MEASURE OF CARDIAC SAMPL & PRESSURE, L HEART, PERC APPROACH (12/01/15) NON-INVASIVE MECHANICAL VENTILATION (04/18/15) RESECTION OF SIGMOID COLON, OPEN APPROACH (03/20/17) RESPIRATORY VENTILATION, GREATER THAN 96 CONSECUTIVE HOURS (03/20/17) Family History: States: Unknown Family Hx - Social History Hx Tobacco Use: Yes (8 years ppd smoker. quit 1.5 years ago) Hx Alcohol Use: No Hx Substance Use: No - Immunization History Hx Tetanus Toxoid Vaccination: Yes Hx Influenza Vaccination: Yes Hx Pneumococcal Vaccination: Yes (12/01/2014) Review Of Systems Except As Marked, All Systems Reviewed And Found Negative. Constitutional: Negative for: Fever, Chills ENT: Negative for: Ear Discharge, Nose Discharge, Throat Pain, Throat Swelling Cardiovascular: Positive for: Chest Pain. Negative for: Palpitations, Orthopnea , Edema, Light Headedness Respiratory: Positive for: Shortness of Breath, Wheezing. Negative for: Sputum Gastrointestinal: Negative for: Nausea, Vomiting, Abdominal Pain Musculoskeletal: Negative for: Neck Pain, Back Pain Skin: Negative for: Rash Neurological: Negative for: Weakness, Numbness, Altered Mental Status, Headache , Dizziness Physical Exam - Physical Exam Appears: Well, Non-toxic Skin: Normal Color, Warm, Dry, No Rash Head: Normacephalic Eye(s): bilateral: PERRL Nose: Flaring, No Discharge Oral Mucosa: Moist, No Drooling Tongue: Normal Appearing Lips: Normal Appearing Throat: No Drooling Neck: Trachea Midline, Supple Cardiovascular: Rhythm Regular, No Murmur, No JVD Respiratory: Decreased Breath Sounds (B/L), Accessory Muscle Use, No Rales, No Rhonchi, No Stridor, Wheezing (scattered Right base wheezing) Gastrointestinal/Abdominal: Soft, No Tenderness, No Distention, No Guarding, No Rebound, Other ((+) colostomy Right side, clean, dry, intact) Back: No CVA Tenderness Extremity: Normal ROM, No Deformity, No Swelling Neurological/Psych: Oriented x3, Normal Speech ED Course And Treatment - Laboratory Results Result Diagrams: 12/04/17 09:54 12/04/17 09:54 ECG: Interpreted By Me, Viewed By Me Interpretation Of ECG: Sinus tachy@122/min, RAD, no acute T wave or ST-T changes. O2 Sat by Pulse Oximetry: 98 Pulse Ox Interpretation: Normal - Radiology CXR: Interpreted by Me, Viewed By Me CXR Interpretation: Yes: COPD Progress Note: Case discussed with PMD and admission arranged. Critical Care Time - Critical Care Note Total Time (in mins): 45 Comments: Blood work, BiPAP Documented critical care: time excludes all time spent performing seperately billable procedures. Disposition - Disposition Disposition: HOSPITALIZED Disposition Time: 11:19 Condition: STABLE - Clinical Impression Clinical Impression: COPD exacerbation, BiPAP (biphasic positive airway pressure) dependence
[2017-12-04] MEDS ORDERED: Albuterol-Ipratrop 3 mg / 0.5 (3 ml) UD ONE (09:51)
[2017-12-04] MEDS ORDERED: Sodium Chloride 0.9% 1,000 ML ONE (09:59)
[2017-12-04 10:14] LABS: BASO # 0.2 K/uL (0.0-0.2); BASO % 1.4 % (0.0-2.0); EOS # 0.3 K/uL (0.0-0.7); EOS % 2.7 % (0.0-4.0); LYMPH # 1.3 K/uL (1.0-4.3); LYMPH % 10.1 % (20.0-40.0); MEAN CELL VOLUME 71.6 fL (80.0-94.0); MEAN CORPUSCULAR HEMOGLOBIN 22.8 pg (27.0-31.0); MEAN CORPUSCULAR HGB CONC 31.9 g/dL (33.0-37.0); MEAN PLATELET VOLUME 8.6 fL (7.2-11.7); MONO # 0.5 K/uL (0.0-0.8); MONO % 4.1 % (0.0-10.0); NEUT # 10.3 K/uL (1.8-7.0); NEUT % 81.7 % (50.0-75.0); NRBC % 0.1 % (0.0-2.0); RBC 4.8 Mil/uL (4.40-5.90); RED CELL DISTRIBUTION WIDTH 18.9 % (11.5-14.5); WHITE BLOOD COUNT 12.6 K/uL (4.8-10.8)
[2017-12-04 10:22] LABS: PROTHROMBIN TIME 10.8 SECONDS (9.7-12.2)
[2017-12-04 10:22] LABS: ABG ALLEN TEST POS; ARTERIAL BLOOD GAS HEMOGLOBIN 10.2 g/dL (11.7-17.4); ARTERIAL BLOOD GAS O2 SAT 99.1 % (95-98); ARTERIAL BLOOD GAS PCO2 45 mm/Hg (35-45); ARTERIAL BLOOD GAS PO2 126 mm/Hg (80-100); ARTERIAL BLOOD GAS TCO2 29.3 mmol/L (22-28)
[2017-12-04 10:27] LABS: SQUAMOUS EPITHIAL < 1 /hpf (0-5); URINE BILIRUBIN NEGATIVE (NEGATIVE); URINE BLOOD NEGATIVE (NEGATIVE); URINE CLARITY Clear (Clear); URINE COLOR Yellow (YELLOW); URINE GLUCOSE (UA) 1+ mg/dL (Normal); URINE LEUKOCYTE ESTERASE NEG Leu/uL (Negative); URINE PROTEIN NEGATIVE (NEGATIVE); URINE UROBILINOGEN NORMAL mg/dL (0.2-1.0)
--- NOTE | 2017-12-04 10:46 | RAD ---
HISTORY: SOB COMPARISON: Chest x-ray 11/21/2017 TECHNIQUE: Chest one view . FINDINGS: LUNGS: No focal consolidation is seen. Mild bibasilar atelectasis. PLEURA: No pleural effusion is identified. CARDIOVASCULAR: Heart size is within normal limits. OSSEOUS STRUCTURES: Degenerative changes noted of the spine. Mild hypertrophic degenerative changes noted of the bilateral acromioclavicular joints. VISUALIZED UPPER ABDOMEN: Unremarkable. OTHER FINDINGS: None. IMPRESSION: Mild bibasilar atelectasis.
[2017-12-04 11:06] LABS: ALB/GLOB RATIO 1.3 (1.0-2.1); ALT/SGPT 55 U/L (21-72); AST/SGOT 35 U/L (17-59); BLOOD UREA NITROGEN 8 mg/dL (9-20); CALCIUM 9.3 mg/dl (8.6-10.4); GFR AFRICAN-AMERICAN > 60; GFR NON-AFRICAN AMERICAN > 60
[2017-12-04] MEDS: guaiFENesin DM 100 mg-10 mg/5 ml UD PO SCH ×2 (13:09→18:30)
[2017-12-04] MEDS ORDERED: guaiFENesin 100 mg/5 ml Syrup UD ONE (13:10)
[2017-12-04] MEDS: Albuterol-Ipratrop 3 mg / 0.5 (3 ml) UD INH SCH ×2 (14:15→19:34)
[2017-12-04] MEDS: Ipratropium 0.02% Inhal Soln (0.5 mg/2.5 ml) UD IH SCH ×2 (17:00→19:34)
[2017-12-04] MEDS: (Novolog) Insulin Aspart, Recombinant 100 u/ml 10 ml vial SC SCH ×2 (17:47→21:40)
--- NOTE | 2017-12-04 18:03 | NM ---
COMPARISON: 09/18/2016 ventilation-perfusion scan. 05/15/2017 V/Q scan. December 04, 2017. Single-view chest TECHNIQUE: 8.8 mCi technetium 99-m Xe-133 Gas. 4.1 mCI technetium 99-m MAA administered intravenously. FINDINGS: VENTILATION COMPONENT: Heterogeneous ventilation similar to that seen previously. PERFUSION COMPONENT: Perfusion defects primarily upper lobe similar to that identified on the most recent ventilation-perfusion scan. IMPRESSION: Low probability ventilation perfusion scan for pulmonary embolism. No significant change compared to the prior study.
[2017-12-04] MEDS: Fluticasone-Salmeterol 250-50mcg Diskus INH SCH (19:31)
[2017-12-04] MEDS: Budesonide 0.5 mg/2 ml Inhal Susp UD IH SCH (19:33)
[2017-12-04] MEDS: MethylPREDNISolone 40 mg Vial IV SCH (21:41)
--- NOTE | 2017-12-04 23:49 | CP.PCM.HP ---
History of Present Illness - History of Present Illness History of Present Illness: History Of Present Illness 67 yo male COPD w/frequent exacerbation ( last 11/17 and that required hospitalization, bipap), chronic CHF BIBA for evaluation of SOB gradually developed since today AM. Pt sts,w as at office, developed more chest tightness, wheezing. As per EMS, pt received Solumedrol 125 IV, Magnesium Sulfate 2gIV and neb tx #3. At present time, pt still c/o chest tightness, although speak full sentences. Patient denies extremity swelling, palpitations, fever or chills. Patient has multiple painless ecchymoses on both his forearms which he notes are from his chronic prednisone use. PMHx: COPD, CHF, arthritis, steroid-induced DM, sleep apnea, colon cancer PSH: sigmoid anastamosis, endoscopy 11/07, cataract repair Home Meds: duonebs, 10mg prednisone PO QD, roflumilast, Allergies: acetaminophen, fish, shrimp, IV dye SH: 8 pack-year tobacco habit quit 1.5 years ago, quit alcohol 15 years ago, no drug use. Past Patient History - Infectious Disease Hx of Infectious Diseases: None - Past Medical History & Family History Past Medical History?: Yes - Past Social History Smoking Status: Former Smoker - CARDIAC Hx Cardia Arrhythmia: Yes (SVT) Hx Congestive Heart Failure: Yes Hx Hypercholesterolemia: Yes Hx Hypertension: Yes - PULMONARY Hx Asthma: Yes Hx Bronchitis: Yes Hx Chronic Obstructive Pulmonary Disease (COPD): Yes (Emphysema) Hx Emphysema: Yes Hx Pneumonia: Yes Hx Sleep Apnea: Yes (ON DALIRESP) - NEUROLOGICAL Hx Neurological Disorder: No HX Cerebrovascular Accident: No - HEENT Hx HEENT Problems: Yes Hx Cataracts: Yes (left cataract removed, r cataract) Hx Deafness: No Hx Difficulty Chewing: No Hx Epistaxis: No Hx Glaucoma: No Hx Macular Degeneration: No Other/Comment: wears eyeglasses for distance - RENAL Hx Chronic Kidney Disease: Yes Hx Kidney Stones: Yes - ENDOCRINE/METABOLIC 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 - MUSCULOSKELETAL/RHEUMATOLOGICAL Hx Arthritis: Yes (BACK) Hx Fractures: No - GASTROINTESTINAL Hx Gastritis: No - PSYCHIATRIC Hx Anxiety: Yes Hx Substance Use: No - SURGICAL HISTORY Hx Surgeries: Yes Hx Cataract Extraction: Yes (left eye, right eye) Hx Cardiac Catheterization: Yes (11/2015) Hx Eye Surgery: Yes Hx Pulmonary Surgery: Yes Other/Comment: colon resection with right ileostomy - ANESTHESIA Hx Anesthesia: Yes Hx Anesthesia Reactions: No Hx Malignant Hyperthermia: No Meds Allergies/Adverse Reactions: Allergies Allergy/AdvReac Type Severity Reaction Status Date / Time acetaminophen [From Tylenol] Allergy RASH Verified 12/04/17 09:01 FISH Allergy SWELLING Verified 12/04/17 09:01 shrimp Allergy SHORTNESS Verified 12/04/17 09:01 OF BREATH IV dye Allergy Severe ANAPHYLAXIS Uncoded 11/14/17 15:19 Results - Vital Signs Recent Vital Signs: Last Vital Signs Temp 97.4 F L 12/04/17 15:13 Pulse 110 H 12/04/17 19:37 Resp 27 H 12/04/17 16:09 BP 112/62 12/04/17 15:13 Pulse Ox 98 12/04/17 18:55 - Labs Result Diagrams: 12/04/17 09:54 12/04/17 09:54 Labs: Laboratory Results - last 24 hr 12/04/17 12/04/17 12/04/17 08:55 09:38 09:54 WBC 12.6 H RBC 4.80 Hgb 11.0 L Hct 34.3 L MCV 71.6 L MCH 22.8 L MCHC 31.9 L RDW 18.9 H Plt Count 237 MPV 8.6 Neut % (Auto) 81.7 H Lymph % (Auto) 10.1 L [place] % (Auto) 4.1 Eos % (Auto) 2.7 Baso % (Auto) 1.4 Neut # (Auto) 10.3 H Lymph # (Auto) 1.3 [place] # (Auto) 0.5 Eos # (Auto) 0.3 Baso # (Auto) 0.2 PT 10.8 INR 1.0 APTT 28 Puncture Site pCO2 pO2 HCO3 ABG pH ABG Total CO2 ABG O2 Saturation ABG Base Excess ABG Hemoglobin ABG Carboxyhemoglobin POC ABG HHb (Measured) ABG Methemoglobin Jesus Test A-a O2 Difference Respiratory Index Hgb O2 Saturation Liter Flow FiO2 Sodium Potassium Chloride Carbon Dioxide Anion Gap BUN Creatinine Est GFR ( Amer) Est GFR (Non-Af Amer) POC Glucose (mg/dL) 199 H Random Glucose Calcium Magnesium Total Bilirubin AST ALT Alkaline Phosphatase Troponin I Total Protein Albumin Globulin Albumin/Globulin Ratio TSH 3rd Generation Urine Color Urine Clarity Urine pH Ur Specific [place] Urine Protein Urine Glucose (UA) Urine Ketones Urine Blood Urine Nitrate Urine Bilirubin Urine Urobilinogen Ur Leukocyte Esterase Urine WBC (Auto) Urine RBC (Auto) Ur Squamous Epith Cells 12/04/17 12/04/17 12/04/17 09:54 10:17 10:20 WBC RBC Hgb Hct MCV MCH MCHC RDW Plt Count MPV Neut % (Auto) Lymph % (Auto) [place] % (Auto) Eos % (Auto) Baso % (Auto) Neut # (Auto) Lymph # (Auto) [place] # (Auto) Eos # (Auto) Baso # (Auto) PT INR APTT Puncture Site Rra pCO2 45 pO2 126 H HCO3 27.0 ABG pH 7.40 ABG Total CO2 29.3 H ABG O2 Saturation 99.1 H ABG Base Excess 2.7 ABG Hemoglobin 10.2 L ABG Carboxyhemoglobin 1.8 H POC ABG HHb (Measured) 0.9 ABG Methemoglobin 1.9 Jesus Test Pos A-a O2 Difference 17.0 Respiratory Index 0.1 Hgb O2 Saturation 95.3 Liter Flow 2.0 FiO2 28.0 Sodium 140 Potassium 4.1 Chloride 96 L Carbon Dioxide 29 Anion Gap 20 BUN 8 L Creatinine 0.6 L Est GFR ( Amer) > 60 Est GFR (Non-Af Amer) > 60 POC Glucose (mg/dL) Random Glucose 207 H Calcium 9.3 Magnesium 2.5 H Total Bilirubin 0.3 AST 35 ALT 55 Alkaline Phosphatase 131 H Troponin I < 0.0120 Total Protein 7.0 Albumin 4.0 Globulin 3.0 Albumin/Globulin Ratio 1.3 TSH 3rd Generation 1.07 Urine Color Yellow Urine Clarity Clear Urine pH 5.0 Ur Specific [place] 1.021 Urine Protein Negative Urine Glucose (UA) 1+ H Urine Ketones Trace Urine Blood Negative Urine Nitrate Negative Urine Bilirubin Negative Urine Urobilinogen Normal Ur Leukocyte Esterase Neg Urine WBC (Auto) 1 Urine RBC (Auto) < 1 Ur Squamous Epith Cells < 1 12/04/17 12/04/17 16:33 21:33 WBC RBC Hgb Hct MCV MCH MCHC RDW Plt Count MPV Neut % (Auto) Lymph % (Auto) [place] % (Auto) Eos % (Auto) Baso % (Auto) Neut # (Auto) Lymph # (Auto) [place] # (Auto) Eos # (Auto) Baso # (Auto) PT INR APTT Puncture Site pCO2 pO2 HCO3 ABG pH ABG Total CO2 ABG O2 Saturation ABG Base Excess ABG Hemoglobin ABG Carboxyhemoglobin POC ABG HHb (Measured) ABG Methemoglobin Jesus Test A-a O2 Difference Respiratory Index Hgb O2 Saturation Liter Flow FiO2 Sodium Potassium Chloride Carbon Dioxide Anion Gap BUN Creatinine Est GFR ( Amer) Est GFR (Non-Af Amer) POC Glucose (mg/dL) 375 H 192 H Random Glucose Calcium Magnesium Total Bilirubin AST ALT Alkaline Phosphatase Troponin I Total Protein Albumin Globulin Albumin/Globulin Ratio TSH 3rd Generation Urine Color Urine Clarity Urine pH Ur Specific [place] Urine Protein Urine Glucose (UA) Urine Ketones Urine Blood Urine Nitrate Urine Bilirubin Urine Urobilinogen Ur Leukocyte Esterase Urine WBC (Auto) Urine RBC (Auto) Ur Squamous Epith Cells
[2017-12-05] MEDS: guaiFENesin DM 100 mg-10 mg/5 ml UD PO SCH ×4 (00:30→17:33)
[2017-12-05] MEDS: Albuterol-Ipratrop 3 mg / 0.5 (3 ml) UD INH SCH ×4 (01:18→19:40)
[2017-12-05] MEDS: Ipratropium 0.02% Inhal Soln (0.5 mg/2.5 ml) UD IH SCH ×4 (01:19→19:40)
[2017-12-05] MEDS: Budesonide 0.5 mg/2 ml Inhal Susp UD IH SCH ×2 (07:33→19:40)
[2017-12-05] MEDS: Fluticasone-Salmeterol 250-50mcg Diskus INH SCH ×2 (07:34→19:39)
[2017-12-05] MEDS: (Novolog) Insulin Aspart, Recombinant 100 u/ml 10 ml vial SC SCH ×4 (08:16→22:37)
[2017-12-05] MEDS: Pantoprazole 40 mg EC Tab PO SCH (09:54)
[2017-12-05] MEDS: Multiple Vitamins Tab PO SCH (09:55)
[2017-12-05] MEDS: MethylPREDNISolone 40 mg Vial IV SCH ×2 (10:39→22:35)
[2017-12-05] MEDS: Enoxaparin 40 mg Syringe SC SCH (10:40)
--- NOTE | 2017-12-05 15:11 | CP.PCM.CON ---
History of Present Illness - History of Present Illness History of Present Illness: Reason for consult: COPD, pulmonary pre-operative clearance HPI: 67 M with PMHx of COPD with frequent exacerbations "requiring" hospitalization (last 11/21-11/23) brought in by ambulance for SOB and chest pain that progressively worsened from yesterday morning. He received solumedrol, mag sulfate and nebuilizer treatments from EMS. He was due to have an operation done today and requires cardiac and pulmonary clearance. The patient was seen and examined on the general med/surg floors today. He reports that he has some shortness of breath and wheezing that is not far from his baseline, but that overall he feels much better and has no acute complaints. The surgery has been rescheduled for tomorrow. PMHx: COPD, arthritis, steroid-induced DM, sleep apnea, colon cancer PSH: sigmoid anastamosis, endoscopy 11/07, cataract repair Home Meds: duonebs, 10mg prednisone PO QD, roflumilast, Allergies: acetaminophen, fish, shrimp, IV dye SH: 8 pack-year tobacco habit quit 1.5 years ago, quit alcohol 15 years ago, no drug use 1. Acute COPD exacerbation - Saturating 97-100% on 3L NC, BiPAP as needed and at night - CXR 12/04: bibasilar atelectasis - CBC 12/04: WBC 12.6/ Hgb 11/ MCV 71.6/ no bands - ABG 12/04: 7.40/45/126/27 - duonebs - singulair - solumedrol 2. Pre-operative clearance - V/Q scan 12/04: low probability of PE - history of sleep apnea, COPD - Patient is at high risk for surgery from pulmonary stand point Past Patient History - Infectious Disease Hx of Infectious Diseases: None - Past Medical History & Family History Past Medical History?: Yes - Past Social History Smoking Status: Former Smoker - CARDIAC Hx Cardia Arrhythmia: Yes (SVT) Hx Congestive Heart Failure: Yes Hx Hypercholesterolemia: Yes Hx Hypertension: Yes - PULMONARY Hx Asthma: Yes Hx Bronchitis: Yes Hx Chronic Obstructive Pulmonary Disease (COPD): Yes (Emphysema) Hx Emphysema: Yes Hx Pneumonia: Yes Hx Sleep Apnea: Yes (ON DALIRESP) - NEUROLOGICAL Hx Neurological Disorder: No HX Cerebrovascular Accident: No - HEENT Hx HEENT Problems: Yes Hx Cataracts: Yes (left cataract removed, r cataract) Hx Deafness: No Hx Difficulty Chewing: No Hx Epistaxis: No Hx Glaucoma: No Hx Macular Degeneration: No Other/Comment: wears eyeglasses for distance - RENAL Hx Chronic Kidney Disease: Yes Hx Kidney Stones: Yes - ENDOCRINE/METABOLIC 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 - MUSCULOSKELETAL/RHEUMATOLOGICAL Hx Arthritis: Yes (BACK) Hx Fractures: No - GASTROINTESTINAL Hx Gastritis: No - PSYCHIATRIC Hx Anxiety: Yes Hx Substance Use: No - SURGICAL HISTORY Hx Surgeries: Yes Hx Cataract Extraction: Yes (left eye, right eye) Hx Cardiac Catheterization: Yes (11/2015) Hx Eye Surgery: Yes Hx Pulmonary Surgery: Yes Other/Comment: colon resection with right ileostomy - ANESTHESIA Hx Anesthesia: Yes Hx Anesthesia Reactions: No Hx Malignant Hyperthermia: No Meds Allergies/Adverse Reactions: Allergies Allergy/AdvReac Type Severity Reaction Status Date / Time acetaminophen [From Tylenol] Allergy RASH Verified 12/04/17 09:01 FISH Allergy SWELLING Verified 12/04/17 09:01 shrimp Allergy SHORTNESS Verified 12/04/17 09:01 OF BREATH IV dye Allergy Severe ANAPHYLAXIS Uncoded 11/14/17 15:19 - Medications Medications: Current Medications Albuterol/Ipratropium (Duoneb 3 Mg/0.5 Mg (3 Ml) Ud) 3 ml INH RQ6 [facility] Last Admin: 12/05/17 13:13 Dose: 3 ml Alprazolam (Xanax) 0.5 mg PO Q12 [facility] Stop: 12/11/17 22:01 Last Admin: 12/05/17 09:55 Dose: 0.5 mg Budesonide (Pulmicort Respules) 1 mg IH RQ12 [facility] Last Admin: 12/05/17 07:33 Dose: 0.5 mg Enoxaparin Sodium (Lovenox) 40 mg SC DAILY [facility] Last Admin: 12/05/17 10:40 Dose: 40 mg Guaifenesin/Dextromethorphan (Robitussin Dm) 5 ml PO Q6H [facility] Last Admin: 12/05/17 13:08 Dose: 5 ml Insulin Aspart (Novolog) 0 unit SC ACHS [facility] PRN Reason: Protocol Last Admin: 12/05/17 12:00 Dose: 2 unit Ipratropium [place] (Atrovent) 0.5 mg IH RQ6 [facility] Last Admin: 12/05/17 13:14 Dose: Not Given Metformin HCl (Glucophage) 1,000 mg PO BIDCC [facility] Last Admin: 12/05/17 08:16 Dose: 1,000 mg Methylprednisolone (Solu-Medrol) 60 mg IV Q12 [facility] Last Admin: 12/05/17 10:39 Dose: 60 mg Montelukast Sodium (Singulair) 10 mg PO HS [facility] Last Admin: 12/04/17 21:41 Dose: 10 mg Multivitamins (Hexavitamin) 1 tab PO DAILY [facility] Last Admin: 12/05/17 09:55 Dose: 1 tab Pantoprazole Sodium (Protonix Ec Tab) 40 mg PO DAILY [facility] Last Admin: 12/05/17 09:54 Dose: 40 mg Pregabalin (Lyrica) 50 mg PO BID [facility] Last Admin: 12/05/17 09:55 Dose: 50 mg Roflumilast (Daliresp) 500 mcg PO DAILY [facility] Last Admin: 12/05/17 09:55 Dose: 500 mcg Fluticasone/Salmeterol (Advair Diskus 250/50) 1 puff INH RQ12 [facility] Last Admin: 12/05/17 07:34 Dose: Not Given Results - Vital Signs Recent Vital Signs: Last Vital Signs Temp 97.3 F L 12/05/17 08:25 Pulse 120 H 12/05/17 13:26 Resp 20 12/05/17 08:25 BP 123/79 12/05/17 08:25 Pulse Ox 97 12/05/17 08:25 - Labs Result Diagrams: 12/04/17 09:54 12/04/17 09:54 Labs: Laboratory Results - last 24 hr 12/04/17 12/04/17 12/05/17 16:33 21:33 06:05 POC Glucose (mg/dL) 375 H 192 H 239 H 12/05/17 11:48 POC Glucose (mg/dL) 194 H
--- NOTE | 2017-12-06 00:05 | CARD ---
APPROVED REPORT EKG Measurement Heart [id number] <Conclusion> Sinus tachycardia Rightward axis Borderline ECG
--- NOTE | 2017-12-06 00:29 | CP.PCM.PN ---
Subjective - Date & Time of Evaluation Date of Evaluation: 12/05/17 Time of Evaluation: 18:00 - Subjective Subjective: Pt seen and examined Objective - Vital Signs/Intake and Output Vital Signs (last 24 hours): Temp Pulse Resp BP Pulse Ox 98.2 F 113 H 20 118/73 98 12/05/17 16:25 12/05/17 19:42 12/05/17 16:25 12/05/17 16:25 12/05/17 16:25 Intake and Output: 12/05/17 12/06/17 18:59 06:59 Intake Total 200 Balance 200 - Medications Medications: Current Medications Albuterol/Ipratropium (Duoneb 3 Mg/0.5 Mg (3 Ml) Ud) 3 ml INH RQ6 [facility] Last Admin: 12/05/17 19:40 Dose: 3 ml Alprazolam (Xanax) 0.5 mg PO Q12 [facility] Stop: 12/11/17 22:01 Last Admin: 12/05/17 22:35 Dose: 0.5 mg Budesonide (Pulmicort Respules) 1 mg IH RQ12 [facility] Last Admin: 12/05/17 19:40 Dose: 0.5 mg Enoxaparin Sodium (Lovenox) 40 mg SC DAILY [facility] Last Admin: 12/05/17 10:40 Dose: 40 mg Guaifenesin/Dextromethorphan (Robitussin Dm) 5 ml PO Q6H [facility] Last Admin: 12/05/17 17:33 Dose: 5 ml Insulin Aspart (Novolog) 0 unit SC ACHS [facility] PRN Reason: Protocol Last Admin: 12/05/17 22:37 Dose: 2 unit Ipratropium [place] (Atrovent) 0.5 mg IH RQ6 [facility] Last Admin: 12/05/17 19:40 Dose: 0.5 mg Metformin HCl (Glucophage) 1,000 mg PO BIDCC [facility] Last Admin: 12/05/17 17:34 Dose: 1,000 mg Methylprednisolone (Solu-Medrol) 60 mg IV Q12 [facility] Last Admin: 12/05/17 22:35 Dose: 60 mg Montelukast Sodium (Singulair) 10 mg PO HS [facility] Last Admin: 12/05/17 22:35 Dose: 10 mg Multivitamins (Hexavitamin) 1 tab PO DAILY [facility] Last Admin: 12/05/17 09:55 Dose: 1 tab Pantoprazole Sodium (Protonix Ec Tab) 40 mg PO DAILY [facility] Last Admin: 12/05/17 09:54 Dose: 40 mg Pregabalin (Lyrica) 50 mg PO BID [facility] Last Admin: 12/05/17 17:34 Dose: 50 mg Roflumilast (Daliresp) 500 mcg PO DAILY [facility] Last Admin: 12/05/17 09:55 Dose: 500 mcg Fluticasone/Salmeterol (Advair Diskus 250/50) 1 puff INH RQ12 [facility] Last Admin: 12/05/17 19:39 Dose: Not Given - Labs Labs: 12/04/17 09:54 12/04/17 09:54 PT 10.8 SECONDS (9.7-12.2) 12/04/17 09:38 INR 1.0 12/04/17 09:38 APTT 28 SECONDS (21-34) 12/04/17 09:38
[2017-12-06] MEDS: guaiFENesin DM 100 mg-10 mg/5 ml UD PO SCH ×3 (00:30→12:37)
[2017-12-06] MEDS: Ipratropium 0.02% Inhal Soln (0.5 mg/2.5 ml) UD IH SCH ×3 (01:17→13:09)
[2017-12-06] MEDS: Albuterol-Ipratrop 3 mg / 0.5 (3 ml) UD INH SCH ×4 (01:18→19:26)
--- NOTE | 2017-12-06 04:53 | CON ---
DATE: HISTORY OF PRESENT ILLNESS: The patient is a 67-year-old male, who has history of chronic obstructive lung disease, on nasal O2 at home, has multiple admissions for exacerbation of chronic obstructive lung disease and was diagnosed last year with colorectal cancer, underwent stage resection with ileostomy. The patient denies any chest pain at this time and no known prior cardiac history. The patient underwent cardiac catheterization in 11/2015, i.e., 2 years ago which revealed unremarkable with normal left ventricular systolic function. SOCIAL HISTORY: The patient is a former smoker. He is and lives with his . MEDICATIONS: Atrovent inhaler, Advair inhaler, albuterol inhaler, Glucophage 1 gm p.o. twice a day, multivitamin tablet once a day, Lovenox 40 mg subcutaneous once a day, Lyrica 50 mg twice a day, Solu-Medrol 60 mg intravenously every 12 hours, and Xanax 0.25 mg p.o. twice a day. REVIEW OF SYSTEMS: The patient denies any fever or chills. The patient denies any dizziness or syncope. The patient denies any retrosternal chest pain. PAST MEDICAL HISTORY: Diabetes mellitus, hypertension, chronic obstructive lung disease, colorectal cancer, status post resection and ileostomy, history of depression. PHYSICAL EXAMINATION: GENERAL: The patient is an elderly male, who does not appear to be in acute distress. VITAL SIGNS: Blood pressure 118/76, heart rate 115, temperature 98.2, and respirations 20. HEENT: Normocephalic. CHEST: Diffuse bilateral rhonchi. HEART: S1 and S2 regular. ABDOMEN: Soft. EXTREMITIES: No edema. LABORATORY DATA: SMA-7 yesterday, sodium 140, potassium 4.1, chloride 96, CO2 29, glucose 207, BUN 8, and creatinine 0.6. One set of troponin is negative. Hemoglobin and hematocrit 11 and 34.3, white count 12.6, platelet count 236,000. EKG revealed sinus tachycardia at the rate of 122 . Echocardiographic study performed in 03/2017 revealed normal ejection fraction, diastolic dysfunction. CT scan: Low probability for pulmonary embolus. Chest x-ray: Mild bibasilar atelectasis. ASSESSMENT: 1. Exacerbation of chronic obstructive lung disease. 2. History of colorectal cancer, status post resection with ileostomy. 3. Sinus tachycardia physiologic response due to the patient's advanced chronic obstructive lung disease. 4. Hypertension and diabetes mellitus. RECOMMENDATIONS: The patient can undergo revision of his ileostomy from the cardiac point of view, however, pulmonary and other medical issues have to be addressed by the recordings librarian as well as the primary physician. Postoperative ICU is strongly recommended given the patient's very poor lung reserve. Mukesh Correia MD
[2017-12-06] MEDS: (Novolog) Insulin Aspart, Recombinant 100 u/ml 10 ml vial SC SCH ×4 (07:12→18:45)
[2017-12-06 07:26] LABS: BASO % 0.3 % (0.0-2.0); HEMOGLOBIN 10.4 g/dL (12.0-18.0); LYMPH % 7.4 % (20.0-40.0); MEAN CORPUSCULAR HEMOGLOBIN 23.3 pg (27.0-31.0); MEAN CORPUSCULAR HGB CONC 32.8 g/dL (33.0-37.0); MEAN PLATELET VOLUME 8.4 fL (7.2-11.7); MONO # 0.4 K/uL (0.0-0.8); MONO % 2.8 % (0.0-10.0); NEUT # 12.5 K/uL (1.8-7.0); NEUT % 89.5 % (50.0-75.0); PLATELET COUNT 262 K/uL (130-400); RBC 4.47 Mil/uL (4.40-5.90); RED CELL DISTRIBUTION WIDTH 18.4 % (11.5-14.5)
[2017-12-06] MEDS: Fluticasone-Salmeterol 250-50mcg Diskus INH SCH ×2 (07:37→19:26)
[2017-12-06] MEDS: Budesonide 0.5 mg/2 ml Inhal Susp UD IH SCH ×2 (07:37→19:26)
[2017-12-06 09:18] LABS: BLOOD UREA NITROGEN 16 mg/dL (9-20); CALCIUM 9.4 mg/dl (8.6-10.4); GFR AFRICAN-AMERICAN > 60; GFR NON-AFRICAN AMERICAN > 60
[2017-12-06] MEDS: Multiple Vitamins Tab PO SCH (10:00)
[2017-12-06] MEDS: Pantoprazole 40 mg EC Tab PO SCH (10:00)
[2017-12-06 10:34] LABS: ANISOCYTOSIS MODERATE; HYPOCHROMIC SLIGHT; LYMPHOCYTE 4 % (20-40); MONOCYTE 1 % (0-10); NEUTROPHIL 95 % (50-75); OVALOCYTES MODERATE; PLATELET ESTIMATE NORMAL (NORMAL); TOTAL CELLS COUNTED 100
[2017-12-06] MEDS: MethylPREDNISolone 40 mg Vial IV SCH ×2 (11:30→21:50)
[2017-12-06] MEDS ORDERED: Lactated Ringer's 1,000 ML IV ONE ×2 (13:15→16:30)
[2017-12-06] MEDS ORDERED: ceFAZolin 1 gm in NS 1 GM/100 ML BAG IVPB ONE (13:19)
[2017-12-06] MEDS ORDERED: metroNIDAZOLE IV 500 mg/100 ml 500 MG/100 ML BAG ONE (13:20)
[2017-12-06] MEDS ORDERED: Propofol 10 mg/ml Inj (20 ML) ONE (13:31)
[2017-12-06] MEDS ORDERED: Midazolam 2 MG/2 ML VIAL ONE (13:31)
[2017-12-06] MEDS ORDERED: Neostigmine Methylsulfate 3mg/3ml Syringe IV ONE (14:45)
[2017-12-06] MEDS ORDERED: HYDROmorphone 0.5 mg/0.5 ml ISec ONE (15:52)
[2017-12-06] MEDS: HYDROmorphone 0.5 mg/0.5 ml ISec IVP PRN ×4 (15:52→16:48)
[2017-12-06] MEDS ORDERED: Lactated Ringer's 1,000 ML IV SCH ×2 (16:00→18:38)
[2017-12-06] MEDS ORDERED: Tramadol 25 mg PO PRN (16:15)
--- NOTE | 2017-12-06 16:31 | PN ---
DATE: 12/06/2017 SUBJECTIVE: The patient is sitting in his bed awaiting surgery. He is n.p.o. He denies any chest pain. He is comfortable with nasal O2. No reported ventricular arrhythmia. PHYSICAL EXAMINATION: VITAL SIGNS: Blood pressure 136/63, heart rate 99, temperature 97.9, respirations 18. HEENT: Normocephalic. CHEST: Minimal bilateral rhonchi. HEART: S1 and S2 regular and distant. EXTREMITIES: No edema. LABORATORY DATA: Today's hemoglobin and hematocrit 10.4 and 31.7, white count 14, platelet count 262,000. Today's SMA-7 is within normal limits except for glucose of 281 and creatinine 0.7. ASSESSMENT: 1. Advanced chronic obstructive lung disease. 2. History of paroxysmal atrial fibrillation in the remote past. 3. Uncontrolled diabetes mellitus. 4. Mild anemia. RECOMMENDATIONS: Case was discussed with Dr. Hal Garcia, the primary physician who had met me on the floor at the time. Continue current IV Solu-Medrol 60 mg every 12 hours, Singulair 10 mg nightly. Oral meds are on hold and the patient will go for surgery this afternoon with the recommendation that he should be followed in ICU following that. Mukesh Correia MD
--- NOTE | 2017-12-06 16:37 | CP.PCM.PN ---
Subjective - Date & Time of Evaluation Date of Evaluation: 12/06/17 Time of Evaluation: 11:00 - Subjective Subjective: The patient was seen and examined seated at bedside. He is set to undergo surgery for an ileostomy revision today. His breathing is improved and he has no complaints today. He reports that he feels well but is a little anxious about his surgery. 1. Acute COPD exacerbation, resolved - Saturating 97-100% on 3L NC, BiPAP on standby - CXR 12/04: bibasilar atelectasis - CBC 12/06: WBC 14.0/ no bands - ABG 12/04: 7.40/45/126/27 - duonebs - singulair - solumedrol 2. Pre-operative clearance - V/Q scan 12/04: low probability of PE - history of sleep apnea, COPD - Patient is at a high risk for surgery from a pulmonary standpoint Objective - Vital Signs/Intake and Output Vital Signs (last 24 hours): Temp Pulse Resp BP Pulse Ox 97.7 F 84 15 139/86 100 12/06/17 15:38 12/06/17 16:10 12/06/17 16:10 12/06/17 16:10 12/06/17 16:10 Intake and Output: 12/06/17 12/06/17 06:59 18:59 Intake Total 0 Output Total 100 Balance -100 - Medications Medications: Current Medications Albuterol/Ipratropium (Duoneb 3 Mg/0.5 Mg (3 Ml) Ud) 3 ml INH RQ6 [facility] Last Admin: 12/06/17 13:08 Dose: 3 ml Alprazolam (Xanax) 0.5 mg PO Q12 [facility] Stop: 12/11/17 22:01 Last Admin: 12/06/17 10:00 Dose: Not Given Budesonide (Pulmicort Respules) 1 mg IH RQ12 [facility] Last Admin: 12/06/17 07:37 Dose: 0.5 mg Enoxaparin Sodium (Lovenox) 40 mg SC DAILY [facility] Last Admin: 12/05/17 10:40 Dose: 40 mg Guaifenesin/Dextromethorphan (Robitussin Dm) 5 ml PO Q6H [facility] Last Admin: 12/06/17 12:37 Dose: Not Given Hydromorphone HCl (Dilaudid) 0.5 mg IVP Q10M PRN PRN Reason: Pain, moderate (4-7) Stop: 12/06/17 17:49 Last Admin: 12/06/17 15:52 Dose: 0.5 mg Cefoxitin Sodium (Mefoxin Iv 1 Gm Duplex) 1 gm in 50 mls @ 50 mls/hr IVPB Q8H [facility] PRN Reason: Protocol Stop: 12/07/17 17:01 Metronidazole (Flagyl) 500 mg in 100 mls @ 100 mls/hr IVPB Q8H [facility] PRN Reason: Protocol Lactated Ringer's (Lactated Ringer's) 1,000 mls @ 100 mls/hr IV .Q10H [facility] Insulin Aspart (Novolog) 0 unit SC ACHS [facility] PRN Reason: Protocol Last Admin: 12/06/17 11:30 Dose: Not Given Ipratropium [place] (Atrovent) 0.5 mg IH RQ6 [facility] Last Admin: 12/06/17 13:09 Dose: Not Given Metformin HCl (Glucophage) 1,000 mg PO BIDCC [facility] Last Admin: 12/06/17 08:12 Dose: Not Given Methylprednisolone (Solu-Medrol) 60 mg IV Q12 [facility] Last Admin: 12/06/17 11:30 Dose: 60 mg Montelukast Sodium (Singulair) 10 mg PO HS [facility] Last Admin: 12/05/17 22:35 Dose: 10 mg Morphine Sulfate (Morphine) 4 mg IVP Q4 PRN PRN Reason: Pain, severe (8-10) Multivitamins (Hexavitamin) 1 tab PO DAILY [facility] Last Admin: 12/06/17 10:00 Dose: Not Given Pantoprazole Sodium (Protonix Ec Tab) 40 mg PO DAILY [facility] Last Admin: 12/06/17 10:00 Dose: Not Given Pregabalin (Lyrica) 50 mg PO BID [facility] Last Admin: 12/06/17 10:00 Dose: Not Given Roflumilast (Daliresp) 500 mcg PO DAILY [facility] Last Admin: 12/06/17 10:00 Dose: Not Given Fluticasone/Salmeterol (Advair Diskus 250/50) 1 puff INH RQ12 [facility] Last Admin: 12/06/17 07:37 Dose: Not Given Tramadol HCl (Ultram) 25 mg PO Q6H [facility] PRN Reason: Pain, moderate (4-7) - Labs Labs: 12/06/17 07:38 12/06/17 04:00 PT 10.8 SECONDS (9.7-12.2) 12/04/17 09:38 INR 1.0 12/04/17 09:38 APTT 28 SECONDS (21-34) 12/04/17 09:38
[2017-12-06] MEDS: cefOXitin IV 1 gm in Dextrose 1 GM/50 ML BAG IVPB SCH (17:20)
--- NOTE | 2017-12-06 17:26 | CP.PCM.CON ---
<Dale Narayanan - Last Filed: 12/06/17 18:39> History of Present Illness - History of Present Illness History of Present Illness: Critical Care Consult Note for Dr. Timothy Benitez This is a 67 year old male with PMHx COPD, drug induced diabetes, sleep apnea, colon CA s/p resection who presented to the hospital for worsening shortness of breath. Patient went to the OR for reversal of illeostomy. Patient seen and examined in the ICU. Patient reports abdominal pain post op. He denies chest pain and shortness of breath at this time. PMHx: COPD, CHF, arthritis, steroid-induced DM, sleep apnea, colon cancer PSH: sigmoid anastamosis, endoscopy 11/07, cataract repair Allergies: acetaminophen, fish, shrimp, IV dye Social Hx: 8 pack-year tobacco habit quit 1.5 years ago, quit alcohol 15 years ago, no drug use. Review of Systems - Constitutional Constitutional: absent: Chills, Fever - EENT Eyes: absent: Change in Vision Ears: absent: Decreased Hearing Nose/Mouth/Throat: absent: Nasal Congestion - Cardiovascular Cardiovascular: absent: Chest Pain - Respiratory Respiratory: absent: Dyspnea - Gastrointestinal Gastrointestinal: Abdominal Pain (post op pain). absent: Nausea, Vomiting - Genitourinary Genitourinary: absent: Dysuria - Musculoskeletal Musculoskeletal: Other (leg pain) - Integumentary Integumentary: Other (wounds on the arms) - Neurological Neurological: absent: Dizziness - Psychiatric Psychiatric: Anxiety - Endocrine Endocrine: absent: Palpitations Past Patient History - Infectious Disease Hx of Infectious Diseases: None - Past Medical History & Family History Past Medical History?: Yes - Past Social History Smoking Status: Former Smoker - CARDIAC Hx Cardia Arrhythmia: Yes (SVT) Hx Congestive Heart Failure: Yes Hx Hypercholesterolemia: Yes Hx Hypertension: Yes - PULMONARY Hx Asthma: Yes Hx Bronchitis: Yes Hx Chronic Obstructive Pulmonary Disease (COPD): Yes (Emphysema) Hx Emphysema: Yes Hx Pneumonia: Yes Hx Sleep Apnea: Yes (ON DALIRESP) - NEUROLOGICAL Hx Neurological Disorder: No HX Cerebrovascular Accident: No - HEENT Hx HEENT Problems: Yes Hx Cataracts: Yes (left cataract removed, r cataract) Hx Deafness: No Hx Difficulty Chewing: No Hx Epistaxis: No Hx Glaucoma: No Hx Macular Degeneration: No Other/Comment: wears eyeglasses for distance - RENAL Hx Chronic Kidney Disease: Yes Hx Kidney Stones: Yes - ENDOCRINE/METABOLIC 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 - MUSCULOSKELETAL/RHEUMATOLOGICAL Hx Arthritis: Yes (BACK) Hx Fractures: No - GASTROINTESTINAL Hx Gastritis: No - PSYCHIATRIC Hx Anxiety: Yes Hx Substance Use: No - SURGICAL HISTORY Hx Surgeries: Yes Hx Cataract Extraction: Yes (left eye, right eye) Hx Cardiac Catheterization: Yes (11/2015) Hx Eye Surgery: Yes Hx Pulmonary Surgery: Yes Other/Comment: colon resection with right ileostomy - ANESTHESIA Hx Anesthesia: Yes Hx Anesthesia Reactions: No Hx Malignant Hyperthermia: No Meds Allergies/Adverse Reactions: Allergies Allergy/AdvReac Type Severity Reaction Status Date / Time acetaminophen [From Tylenol] Allergy RASH Verified 12/04/17 09:01 FISH Allergy SWELLING Verified 12/04/17 09:01 shrimp Allergy SHORTNESS Verified 12/04/17 09:01 OF BREATH IV dye Allergy Severe ANAPHYLAXIS Uncoded 11/14/17 15:19 - Medications Medications: Current Medications Albuterol/Ipratropium (Duoneb 3 Mg/0.5 Mg (3 Ml) Ud) 3 ml INH RQ6 [facility] Last Admin: 12/06/17 13:08 Dose: 3 ml Alprazolam (Xanax) 0.5 mg PO Q12 [facility] Stop: 12/11/17 22:01 Last Admin: 12/06/17 10:00 Dose: Not Given Budesonide (Pulmicort Respules) 1 mg IH RQ12 [facility] Last Admin: 12/06/17 07:37 Dose: 0.5 mg Enoxaparin Sodium (Lovenox) 40 mg SC DAILY [facility] Last Admin: 12/05/17 10:40 Dose: 40 mg Guaifenesin/Dextromethorphan (Robitussin Dm) 5 ml PO Q6H [facility] Last Admin: 12/06/17 12:37 Dose: Not Given Hydromorphone HCl (Dilaudid) 0.5 mg IVP Q10M PRN PRN Reason: Pain, moderate (4-7) Stop: 12/06/17 17:49 Last Admin: 12/06/17 16:48 Dose: 0.5 mg Cefoxitin Sodium (Mefoxin Iv 1 Gm Duplex) 1 gm in 50 mls @ 50 mls/hr IVPB Q8H [facility] PRN Reason: Protocol Stop: 12/07/17 17:01 Metronidazole (Flagyl) 500 mg in 100 mls @ 100 mls/hr IVPB Q8H [facility] PRN Reason: Protocol Lactated Ringer's (Lactated Ringer's) 1,000 mls @ 100 mls/hr IV .Q10H [facility] Insulin Aspart (Novolog) 0 unit SC ACHS [facility] PRN Reason: Protocol Last Admin: 12/06/17 11:30 Dose: Not Given Ipratropium [place] (Atrovent) 0.5 mg IH RQ6 [facility] Last Admin: 12/06/17 13:09 Dose: Not Given Metformin HCl (Glucophage) 1,000 mg PO BIDCC [facility] Last Admin: 12/06/17 08:12 Dose: Not Given Methylprednisolone (Solu-Medrol) 60 mg IV Q12 [facility] Last Admin: 12/06/17 11:30 Dose: 60 mg Montelukast Sodium (Singulair) 10 mg PO HS [facility] Last Admin: 12/05/17 22:35 Dose: 10 mg Morphine Sulfate (Morphine) 4 mg IVP Q4 PRN PRN Reason: Pain, severe (8-10) Multivitamins (Hexavitamin) 1 tab PO DAILY [facility] Last Admin: 12/06/17 10:00 Dose: Not Given Pantoprazole Sodium (Protonix Ec Tab) 40 mg PO DAILY [facility] Last Admin: 12/06/17 10:00 Dose: Not Given Pregabalin (Lyrica) 50 mg PO BID [facility] Last Admin: 12/06/17 10:00 Dose: Not Given Roflumilast (Daliresp) 500 mcg PO DAILY [facility] Last Admin: 12/06/17 10:00 Dose: Not Given Fluticasone/Salmeterol (Advair Diskus 250/50) 1 puff INH RQ12 [facility] Last Admin: 12/06/17 07:37 Dose: Not Given Tramadol HCl (Ultram) 25 mg PO Q6H PRN PRN Reason: Pain, moderate (4-7) Physical Exam - Constitutional Appears: No Acute Distress, Chronically Ill - Head Exam Head Exam: ATRAUMATIC, NORMOCEPHALIC - Eye Exam Eye Exam: EOMI, Normal appearance - ENT Exam ENT Exam: Mucous Membranes Moist - Respiratory Exam Respiratory Exam: Wheezes. absent: Rales, Rhonchi - Cardiovascular Exam Cardiovascular Exam: Tachycardia, +S1, +S2 - GI/Abdominal Exam GI & Abdominal Exam: Distended, Normal Bowel Sounds Additional comments: abdominal dressings clean, dry, intact - Extremities Exam Extremities exam: Negative for: pedal edema - Neurological Exam Neurological exam: Alert, Oriented x3 - Psychiatric Exam Psychiatric exam: Anxious - Skin Skin Exam: Dry, Warm Results - Vital Signs Recent Vital Signs: Last Vital Signs Temp 97.7 F 12/06/17 15:38 Pulse 84 12/06/17 16:10 Resp 15 12/06/17 16:10 BP 139/86 12/06/17 16:10 Pulse Ox 100 12/06/17 16:10 - Labs Result Diagrams: 12/06/17 07:38 12/06/17 04:00 Labs: Laboratory Results - last 24 hr 12/05/17 12/06/17 12/06/17 21:42 02:23 04:00 WBC RBC Hgb Hct MCV MCH MCHC RDW Plt Count MPV Neut % (Auto) Lymph % (Auto) [place] % (Auto) Eos % (Auto) Baso % (Auto) Neut # (Auto) Lymph # (Auto) [place] # (Auto) Eos # (Auto) Baso # (Auto) Neutrophils % (Manual) Lymphocytes % (Manual) Monocytes % (Manual) Platelet Estimate Hypochromasia (manual) Basophilic Stippling Anisocytosis (manual) Ovalocytes Sodium 142 Potassium 4.9 Chloride 100 Carbon Dioxide 29 Anion Gap 18 BUN 16 Creatinine 0.7 L Est GFR ( Amer) > 60 Est GFR (Non-Af Amer) > 60 POC Glucose (mg/dL) 301 H 234 H Random Glucose 281 H Calcium 9.4 Blood Type Antibody Screen 12/06/17 12/06/17 12/06/17 06:17 06:28 07:38 WBC 14.0 H RBC 4.47 Hgb 10.4 L Hct 31.7 L MCV 71.0 L MCH 23.3 L MCHC 32.8 L RDW 18.4 H Plt Count 262 MPV 8.4 Neut % (Auto) 89.5 H Lymph % (Auto) 7.4 L [place] % (Auto) 2.8 Eos % (Auto) 0.0 Baso % (Auto) 0.3 Neut # (Auto) 12.5 H Lymph # (Auto) 1.0 [place] # (Auto) 0.4 Eos # (Auto) 0.0 Baso # (Auto) 0.0 Neutrophils % (Manual) 95 H Lymphocytes % (Manual) 4 L Monocytes % (Manual) 1 Platelet Estimate Normal Hypochromasia (manual) Slight Basophilic Stippling Slight Anisocytosis (manual) Moderate Ovalocytes Moderate Sodium Potassium Chloride Carbon Dioxide Anion Gap BUN Creatinine Est GFR ( Amer) Est GFR (Non-Af Amer) POC Glucose (mg/dL) 266 H Random Glucose Calcium Blood Type O POSITIVE Antibody Screen Negative 12/06/17 12/06/17 12:50 16:26 WBC RBC Hgb Hct MCV MCH MCHC RDW Plt Count MPV Neut % (Auto) Lymph % (Auto) [place] % (Auto) Eos % (Auto) Baso % (Auto) Neut # (Auto) Lymph # (Auto) [place] # (Auto) Eos # (Auto) Baso # (Auto) Neutrophils % (Manual) Lymphocytes % (Manual) Monocytes % (Manual) Platelet Estimate Hypochromasia (manual) Basophilic Stippling Anisocytosis (manual) Ovalocytes Sodium Potassium Chloride Carbon Dioxide Anion Gap BUN Creatinine Est GFR ( Amer) Est GFR (Non-Af Amer) POC Glucose (mg/dL) 156 H 249 H Random Glucose Calcium Blood Type Antibody Screen Assessment & Plan - Assessment and Plan (Free Text) Assessment: This is a 67 year old male with PMHx COPD, drug induced diabetes, sleep apnea, colon CA s/p resection. He is post op reversal of illeostomy and was sent to the ICU for monitoring. Neuro Awake, verbal Cardio No active issues Pulm Assessment: COPD Exacerbation Duoneb Q4H Pulmicort 1 mg Q12H Advair 1 puff Q12H Singulair 10 mg PO HS Roflumilast 500 mcg PO daily Solumedrol 60 mg IV Q12H GI NPO diet Protonix 40 mg PO daily Endocrine Assessment: Drug-induced Diabetes Aspart ISS Q6H since NPO Renal No active issues Getting lactated ringers 42 cc/hr Infectious Disease Cefoxitin 1 gm Q8 post op Flagyl 500 mg IV Q8H post op Prophylaxis DVT ppx on hold post op Pepcid 20 mg IV daily Discussed with Dr. Timothy Benitez <Veronica Benitez Last Filed: 12/07/17 13:58> Meds - Medications Medications: Current Medications Albuterol/Ipratropium (Duoneb 3 Mg/0.5 Mg (3 Ml) Ud) 3 ml INH RQ6 [facility] Budesonide (Pulmicort Respules) 1 mg IH RQ12 [facility] Last Admin: 12/07/17 07:34 Dose: 0.5 mg Enoxaparin Sodium (Lovenox) 40 mg SC DAILY [facility] Last Admin: 12/07/17 10:35 Dose: 40 mg Cefoxitin Sodium (Mefoxin Iv 1 Gm Duplex) 1 gm in 50 mls @ 50 mls/hr IVPB Q8H [facility] PRN Reason: Protocol Stop: 12/07/17 17:01 Last Admin: 12/07/17 08:45 Dose: 50 mls/hr Metronidazole (Flagyl) 500 mg in 100 mls @ 100 mls/hr IVPB Q8H [facility] PRN Reason: Protocol Last Admin: 12/07/17 13:34 Dose: 100 mls/hr Insulin Aspart (Novolog) 0 unit SC ACHS [facility] PRN Reason: Protocol Ketorolac Tromethamine (Toradol) 10 mg PO Q6 PRN PRN Reason: Pain, severe (8-10) Montelukast Sodium (Singulair) 10 mg PO HS [facility] Last Admin: 12/06/17 21:51 Dose: Not Given Multivitamins (Hexavitamin) 1 tab PO DAILY [facility] Last Admin: 12/07/17 10:27 Dose: 1 tab Pantoprazole Sodium (Protonix Ec Tab) 40 mg PO DAILY [facility] Last Admin: 12/07/17 10:27 Dose: 40 mg Roflumilast (Daliresp) 500 mcg PO DAILY [facility] Last Admin: 12/07/17 10:43 Dose: 500 mcg Fluticasone/Salmeterol (Advair Diskus 250/50) 1 puff INH RQ12 [facility] Last Admin: 12/07/17 07:35 Dose: Not Given Results - Vital Signs Recent Vital Signs: Last Vital Signs Temp 98.2 F 12/07/17 12:00 Pulse 100 H 12/07/17 13:46 Resp 19 12/07/17 13:46 BP 118/72 12/07/17 13:47 Pulse Ox 95 12/07/17 13:46 - Labs Result Diagrams: 12/07/17 06:12 12/07/17 06:12 Labs: Laboratory Results - last 24 hr 12/06/17 12/06/17 12/07/17 12:50 16:26 00:07 WBC RBC Hgb Hct MCV MCH MCHC RDW Plt Count MPV Neut % (Auto) Lymph % (Auto) [place] % (Auto) Eos % (Auto) Baso % (Auto) Neut # (Auto) Lymph # (Auto) [place] # (Auto) Eos # (Auto) Baso # (Auto) Neutrophils % (Manual) Band Neutrophils % Lymphocytes % (Manual) Monocytes % (Manual) Metamyelocytes % Platelet Estimate Hypochromasia (manual) Poikilocytosis (manual Basophilic Stippling Anisocytosis (manual) Ovalocytes Sodium Potassium Chloride Carbon Dioxide Anion Gap BUN Creatinine Est GFR ( Amer) Est GFR (Non-Af Amer) POC Glucose (mg/dL) 156 H 249 H 204 H Random Glucose Calcium Phosphorus Magnesium Total Bilirubin AST ALT Alkaline Phosphatase Total Protein Albumin Globulin Albumin/Globulin Ratio 12/07/17 12/07/17 12/07/17 05:44 06:12 06:12 WBC 15.2 H RBC 4.49 Hgb 10.3 L Hct 32.1 L MCV 71.5 L MCH 22.9 L MCHC 32.1 L RDW 18.4 H Plt Count 270 MPV 8.7 Neut % (Auto) 88.5 H Lymph % (Auto) 4.1 L [place] % (Auto) 7.3 Eos % (Auto) 0.0 Baso % (Auto) 0.1 Neut # (Auto) 13.4 H Lymph # (Auto) 0.6 L [place] # (Auto) 1.1 H Eos # (Auto) 0.0 Baso # (Auto) 0.0 Neutrophils % (Manual) 86 H Band Neutrophils % 1 Lymphocytes % (Manual) 6 L Monocytes % (Manual) 6 Metamyelocytes % 1 H Platelet Estimate Normal Hypochromasia (manual) Slight Poikilocytosis (manual Slight Basophilic Stippling Slight Anisocytosis (manual) Moderate Ovalocytes Moderate Sodium 143 Potassium 4.3 Chloride 100 Carbon Dioxide 29 Anion Gap 18 BUN 14 Creatinine 0.7 L Est GFR ( Amer) > 60 Est GFR (Non-Af Amer) > 60 POC Glucose (mg/dL) 248 H Random Glucose 239 H Calcium 8.8 Phosphorus 4.1 Magnesium 2.4 H Total Bilirubin 0.4 AST 27 ALT 35 Alkaline Phosphatase 79 Total Protein 6.4 Albumin 3.7 Globulin 2.7 Albumin/Globulin Ratio 1.4 12/07/17 12:02 WBC RBC Hgb Hct MCV MCH MCHC RDW Plt Count MPV Neut % (Auto) Lymph % (Auto) [place] % (Auto) Eos % (Auto) Baso % (Auto) Neut # (Auto) Lymph # (Auto) [place] # (Auto) Eos # (Auto) Baso # (Auto) Neutrophils % (Manual) Band Neutrophils % Lymphocytes % (Manual) Monocytes % (Manual) Metamyelocytes % Platelet Estimate Hypochromasia (manual) Poikilocytosis (manual Basophilic Stippling Anisocytosis (manual) Ovalocytes Sodium Potassium Chloride Carbon Dioxide Anion Gap BUN Creatinine Est GFR ( Amer) Est GFR (Non-Af Amer) POC Glucose (mg/dL) 152 H Random Glucose Calcium Phosphorus Magnesium Total Bilirubin AST ALT Alkaline Phosphatase Total Protein Albumin Globulin Albumin/Globulin Ratio Assessment & Plan - Assessment and Plan (Free Text) Plan: PAtient seen and examiend post op. PAtient was seen and examined by myself. vitals reviewed b/l basialr rales (+)wheezing R > left abd:soft, distended, tender at side of surgery ext: no caynsois neuro: aao x3, able to move all 4 extremtieis labs reviewed A/P COPD exacerbation: start duonebs q4hrs and soluemdrol and continue bi-pap -NPO for first 24 hours -contineu DVT/PUD ppx -complete giovanna-op abx regimen -cc time 35 minutes - Date & Time Date: 12/07/17 Time: 13:58
[2017-12-06] MEDS: metroNIDAZOLE IV 500 mg/100 ml 500 MG/100 ML BAG IVPB SCH (22:13)
--- NOTE | 2017-12-07 | CP.PCM.PN ---
Subjective - Date & Time of Evaluation Date of Evaluation: 12/06/17 Time of Evaluation: 18:00 Objective - Vital Signs/Intake and Output Vital Signs (last 24 hours): Temp Pulse Resp BP Pulse Ox 98.4 F 99 H 13 116/66 97 12/06/17 20:00 12/06/17 22:00 12/06/17 22:00 12/06/17 21:47 12/06/17 22:00 Intake and Output: 12/06/17 12/07/17 18:59 06:59 Intake Total 0 126 Output Total 225 150 Balance -225 -24 - Medications Medications: Current Medications Albuterol/Ipratropium (Duoneb 3 Mg/0.5 Mg (3 Ml) Ud) 3 ml INH RQ4 [facility] Last Admin: 12/06/17 19:26 Dose: 3 ml Budesonide (Pulmicort Respules) 1 mg IH RQ12 [facility] Last Admin: 12/06/17 19:26 Dose: Not Given Enoxaparin Sodium (Lovenox) 40 mg SC DAILY [facility] Last Admin: 12/05/17 10:40 Dose: 40 mg Cefoxitin Sodium (Mefoxin Iv 1 Gm Duplex) 1 gm in 50 mls @ 50 mls/hr IVPB Q8H [facility] PRN Reason: Protocol Stop: 12/07/17 17:01 Last Admin: 12/06/17 17:20 Dose: 50 mls/hr Metronidazole (Flagyl) 500 mg in 100 mls @ 100 mls/hr IVPB Q8H [facility] PRN Reason: Protocol Last Admin: 12/06/17 22:13 Dose: 100 mls/hr Lactated Ringer's (Lactated Ringer's) 1,000 mls @ 42 mls/hr IV .[id number] [facility] Last Admin: 12/06/17 17:05 Dose: 42 mls/hr Insulin Aspart (Novolog) 0 unit SC Q6H [facility] PRN Reason: Protocol Last Admin: 12/06/17 18:45 Dose: Not Given Metformin HCl (Glucophage) 1,000 mg PO BIDCC [facility] Last Admin: 12/06/17 20:37 Dose: Not Given Methylprednisolone (Solu-Medrol) 60 mg IV Q12 [facility] Last Admin: 12/06/17 21:50 Dose: 60 mg Montelukast Sodium (Singulair) 10 mg PO HS [facility] Last Admin: 12/06/17 21:51 Dose: Not Given Morphine Sulfate (Morphine) 4 mg IVP Q4 PRN PRN Reason: Pain, severe (8-10) Multivitamins (Hexavitamin) 1 tab PO DAILY [facility] Last Admin: 12/06/17 10:00 Dose: Not Given Pantoprazole Sodium (Protonix Inj) 40 mg IVP DAILY [facility] Roflumilast (Daliresp) 500 mcg PO DAILY [facility] Last Admin: 12/06/17 10:00 Dose: Not Given Fluticasone/Salmeterol (Advair Diskus 250/50) 1 puff INH RQ12 [facility] Last Admin: 12/06/17 19:26 Dose: Not Given - Labs Labs: 12/06/17 07:38 12/06/17 04:00 PT 10.8 SECONDS (9.7-12.2) 12/04/17 09:38 INR 1.0 12/04/17 09:38 APTT 28 SECONDS (21-34) 12/04/17 09:38
[2017-12-07] MEDS: Albuterol-Ipratrop 3 mg / 0.5 (3 ml) UD INH SCH ×5 (00:15→19:26)
[2017-12-07] MEDS: (Novolog) Insulin Aspart, Recombinant 100 u/ml 10 ml vial SC SCH ×4 (00:33→21:40)
--- NOTE | 2017-12-07 00:40 | OP ---
PROCEDURE DATE: 12/06/2017. PREOPERATIVE DIAGNOSIS: Ileostomy status post colectomy. PROCEDURE CARRIED OUT: Small bowel resection with anastomosis with closure of ileostomy. SURGEON: Lucho Nieto Jr., MD. PLANTING MATERIAL UNLOADER: Dr. Martines. ANESTHESIOLOGIST: Mr. Mari. INDICATIONS: A 67-year-old man severe COPD, previous low anterior resection, recent colonoscopy negative, has severe COPD; however, this now is in a stable condition. We are closing the ileostomy in the right lower quadrant. This was a loop ileostomy previously created at the time of the original surgery. OPERATIVE FINDINGS: two loops dissected out. The area was resected free down to two loops of bowel which was then anastomosed in side to side fashion. This was then placed back in the peritoneal cavity after the anastomosis was completed with a BRODERICK stapler. The remnant was submitted for examination. The two layered closure was carried out in the abdominal wall. Blood loss for the procedure was less than 100 mL. Operation carried out is closure of ileostomy with small bowel resection with anastomosis. Lucho Nieto Jr., MD cc: Hal Garcia MD
[2017-12-07] MEDS: cefOXitin IV 1 gm in Dextrose 1 GM/50 ML BAG IVPB SCH ×3 (01:12→16:44)
[2017-12-07] MEDS: metroNIDAZOLE IV 500 mg/100 ml 500 MG/100 ML BAG IVPB SCH ×3 (05:06→21:01)
[2017-12-07 06:16] LABS: BASO % 0.1 % (0.0-2.0); HEMOGLOBIN 10.3 g/dL (12.0-18.0); LYMPH # 0.6 K/uL (1.0-4.3); LYMPH % 4.1 % (20.0-40.0); MEAN CELL VOLUME 71.5 fL (80.0-94.0); MEAN CORPUSCULAR HEMOGLOBIN 22.9 pg (27.0-31.0); MEAN CORPUSCULAR HGB CONC 32.1 g/dL (33.0-37.0); MEAN PLATELET VOLUME 8.7 fL (7.2-11.7); MONO # 1.1 K/uL (0.0-0.8); MONO % 7.3 % (0.0-10.0); NEUT # 13.4 K/uL (1.8-7.0); NEUT % 88.5 % (50.0-75.0); PLATELET COUNT 270 K/uL (130-400); RBC 4.49 Mil/uL (4.40-5.90); RED CELL DISTRIBUTION WIDTH 18.4 % (11.5-14.5); WHITE BLOOD COUNT 15.2 K/uL (4.8-10.8)
[2017-12-07 06:34] LABS: ALB/GLOB RATIO 1.4 (1.0-2.1); ALBUMIN 3.7 g/dL (3.5-5.0); ALT/SGPT 35 U/L (21-72); AST/SGOT 27 U/L (17-59); BLOOD UREA NITROGEN 14 mg/dL (9-20); CALCIUM 8.8 mg/dl (8.6-10.4); GFR AFRICAN-AMERICAN > 60; GFR NON-AFRICAN AMERICAN > 60
[2017-12-07] MEDS: Budesonide 0.5 mg/2 ml Inhal Susp UD IH SCH ×2 (07:34→19:26)
[2017-12-07] MEDS: Fluticasone-Salmeterol 250-50mcg Diskus INH SCH ×2 (07:35→19:27)
[2017-12-07] MEDS ORDERED: Oxycodone/Acetaminophen 5/325 mg Tab PO PRN (08:09)
[2017-12-07 08:59] LABS: ANISOCYTOSIS MODERATE; BANDS 1 % (0-2); HYPOCHROMIC SLIGHT; LYMPHOCYTE 6 % (20-40); METAMYELOCYTE 1 % (0-0); MONOCYTE 6 % (0-10); NEUTROPHIL 86 % (50-75); PLATELET ESTIMATE NORMAL (NORMAL); TOTAL CELLS COUNTED 100
[2017-12-07 09:00] LABS: OVALOCYTES MODERATE; POIKILOCYTOSIS SLIGHT
--- NOTE | 2017-12-07 09:01 | CP.PCM.PN ---
Subjective - Date & Time of Evaluation Date of Evaluation: 12/07/17 Time of Evaluation: 08:58 - Subjective Subjective: General Surgery - Dr. Nieto Pt S&E. RIKA. PT doing well this morning. He has mild pain from the surgical site but states its controlled with meds. Iodoform packing removed from incision and clean dressing applied. NGT removed at bedside. Pt denies any N/V , F/C. Objective - Vital Signs/Intake and Output Vital Signs (last 24 hours): Temp Pulse Resp BP Pulse Ox 98.2 F 98 H 12 118/77 100 12/07/17 04:00 12/07/17 07:36 12/07/17 06:00 12/07/17 05:47 12/07/17 06:00 Intake and Output: 12/07/17 12/07/17 06:59 18:59 Intake Total 586 Output Total 510 Balance 76 - Medications Medications: Current Medications Albuterol/Ipratropium (Duoneb 3 Mg/0.5 Mg (3 Ml) Ud) 3 ml INH RQ6 [facility] Budesonide (Pulmicort Respules) 1 mg IH RQ12 [facility] Last Admin: 12/07/17 07:34 Dose: 0.5 mg Enoxaparin Sodium (Lovenox) 40 mg SC DAILY [facility] Last Admin: 12/05/17 10:40 Dose: 40 mg Cefoxitin Sodium (Mefoxin Iv 1 Gm Duplex) 1 gm in 50 mls @ 50 mls/hr IVPB Q8H [facility] PRN Reason: Protocol Stop: 12/07/17 17:01 Last Admin: 12/07/17 08:45 Dose: 50 mls/hr Metronidazole (Flagyl) 500 mg in 100 mls @ 100 mls/hr IVPB Q8H [facility] PRN Reason: Protocol Last Admin: 12/07/17 05:06 Dose: 100 mls/hr Insulin Aspart (Novolog) 0 unit SC Q6H [facility] PRN Reason: Protocol Last Admin: 12/07/17 06:01 Dose: 3 unit Montelukast Sodium (Singulair) 10 mg PO HS [facility] Last Admin: 12/06/17 21:51 Dose: Not Given Multivitamins (Hexavitamin) 1 tab PO DAILY [facility] Last Admin: 12/06/17 10:00 Dose: Not Given Pantoprazole Sodium (Protonix Ec Tab) 40 mg PO DAILY [facility] Roflumilast (Daliresp) 500 mcg PO DAILY [facility] Last Admin: 12/06/17 10:00 Dose: Not Given Fluticasone/Salmeterol (Advair Diskus 250/50) 1 puff INH RQ12 [facility] Last Admin: 12/07/17 07:35 Dose: Not Given - Labs Labs: 12/07/17 06:12 12/07/17 06:12 PT 10.8 SECONDS (9.7-12.2) 12/04/17 09:38 INR 1.0 12/04/17 09:38 APTT 28 SECONDS (21-34) 12/04/17 09:38 - Constitutional Appears: No Acute Distress - Head Exam Head Exam: ATRAUMATIC, NORMAL INSPECTION, NORMOCEPHALIC - Eye Exam Eye Exam: Normal appearance - Respiratory Exam Respiratory Exam: absent: Respiratory Distress Additional comments: on bipap - GI/Abdominal Exam GI & Abdominal Exam: Soft, Tenderness (appropriately ). absent: Distended, Firm , Guarding, Rebound Additional comments: kiran C/D/I - Neurological Exam Neurological Exam: Alert, Oriented x3 - Psychiatric Exam Psychiatric exam: Normal Affect, Normal Mood - Skin Skin Exam: Dry, Intact Assessment and Plan - Assessment and Plan (Free Text) Assessment: 67 yo M s/p ileostomy reversal, POD #1 -NGT removed -D/C Calderon -Start Clear liquids -Monitor for bowel function -OOB to chair and physical therapy DW Dr Nieto
[2017-12-07] MEDS: Pantoprazole 40 mg EC Tab PO SCH (10:27)
[2017-12-07] MEDS: Multiple Vitamins Tab PO SCH (10:27)
[2017-12-07] MEDS: Enoxaparin 40 mg Syringe SC SCH (10:35)
--- NOTE | 2017-12-07 12:16 | CP.CCUPN ---
<Dale Narayanan S - Last Filed: 12/07/17 12:06> CCU Subjective - Physician Review Subjective (Free Text): 12/07/17 12:06 Patient seen and examined. Patient's abdominal pain is improved from yesterday. His respiratory status has also improved. CCU Objective - Vital Signs / Intake & Output Vital Signs (Last 4 hours): Vital Signs Pulse Resp BP Pulse Ox 12/07/17 11:47 97 H 12 114/69 96 12/07/17 10:47 94 H 12 117/67 97 12/07/17 10:00 101 H 12 100 12/07/17 09:47 103 H 12 123/74 99 12/07/17 08:47 95 H 14 126/81 100 Intake and Output (Last 8hrs): Intake & Output 12/06/17 12/07/17 12/07/17 22:59 06:59 14:59 Intake Total 184 402 168 Output Total 365 320 80 Balance -181 82 88 Weight 153 lb Intake: Intake, IV Amount 184 402 168 left forearm 184 402 168 Oral 0 Output: Urine 365 320 80 Urethral ([place]) 190 320 80 - Physical Exam Head: Positive for: Atraumatic, Normocephalic Pupils: Positive for: PERRL Extroacular Muscles: Positive for: EOMI Mouth: Positive for: Moist Mucous Membranes Respiratory/Chest: Positive for: Clear to Auscultation. Negative for: Wheezes, Rales, Rhonchi Cardiovascular: Positive for: Regular Rate and Rhythm, Normal S1, S2 Abdomen: Positive for: Tenderness (post op tenderness), Distention, Normal Bowel Sounds Upper Extremity: Negative for: Edema Lower Extremity: Negative for: Edema Neurological: Positive for: GCS=15 Skin: Positive for: Warm, Dry Psychiatric: Positive for: Alert, Oriented x 3 - Medications Active Medications: Active Medications Generic Name Dose Route Start Last Admin Trade Name Freq PRN Reason Stop Dose Admin Albuterol/Ipratropium 3 ml 12/07/17 14:00 Duoneb 3 Mg/0.5 Mg (3 Ml) Ud INH RQ6 [facility] Budesonide 1 mg 12/04/17 20:00 12/07/17 07:34 Pulmicort Respules IH 0.5 mg RQ12 CHANCE Administration Enoxaparin Sodium 40 mg 12/05/17 10:00 12/07/17 10:35 Lovenox SC 40 mg DAILY [facility]ANCE Administration Cefoxitin Sodium 1 gm in 50 mls @ 50 mls/hr 12/06/17 17:00 12/07/17 08:45 Mefoxin Iv 1 Gm Duplex IVPB 12/07/17 17:01 50 mls/hr Q8H [facility]ANCE Administration Protocol Metronidazole 500 mg in 100 mls @ 100 mls/hr 12/06/17 22:00 12/07/17 05:06 Flagyl IVPB 100 mls/hr Q8H [facility]ANCE Administration Protocol Insulin Aspart 0 unit 12/06/17 18:45 12/07/17 06:01 Novolog SC 3 unit Q6H CHANCE Administration Protocol Ketorolac Tromethamine 10 mg 12/07/17 08:58 Toradol PO Q6 PRN Pain, severe (8-10) Montelukast Sodium 10 mg 12/04/17 22:00 12/06/17 21:51 Singulair PO Not Given HS [facility] Multivitamins 1 tab 12/05/17 10:00 12/07/17 10:27 Hexavitamin PO 1 tab DAILY [facility] Administration Pantoprazole Sodium 40 mg 12/07/17 10:00 12/07/17 10:27 Protonix Ec Tab PO 40 mg DAILY [facility] Administration Roflumilast 500 mcg 12/05/17 10:00 12/07/17 10:43 Daliresp PO 500 mcg DAILY CHANCE Administration Fluticasone/Salmeterol 1 puff 12/04/17 20:00 12/07/17 07:35 Advair Diskus 250/50 INH Not Given RQ12 [facility] - Patient Studies Lab Studies: Microbiology Studies 12/04/17 10:00 S.aureus & Coag-Neg Staph PNA FISH - Final Blood Blood Culture - Final Coagulase Neg Staphylococcus Gram Stain - Final 12/06/17 21:46 Urine Culture - Final Urine,[place] No Growth (<1,000 CFU/ML) 12/04/17 08:15 Blood Culture - Preliminary Blood NO GROWTH AFTER 48 HOURS Lab Studies 12/07/17 12/07/17 12/07/17 Range/Units 06:12 06:12 05:44 WBC 15.2 H (4.8-10.8) K/uL RBC 4.49 (4.40-5.90) Mil/uL Hgb 10.3 L (12.0-18.0) g/dL Hct 32.1 L (35.0-51.0) % MCV 71.5 L (80.0-94.0) fL MCH 22.9 L (27.0-31.0) pg MCHC 32.1 L (33.0-37.0) g/dL RDW 18.4 H (11.5-14.5) % Plt Count 270 (130-400) K/uL MPV 8.7 (7.2-11.7) fL Neut % (Auto) 88.5 H (50.0-75.0) % Lymph % (Auto) 4.1 L (20.0-40.0) % Ada % (Auto) 7.3 (0.0-10.0) % Eos % (Auto) 0.0 (0.0-4.0) % Baso % (Auto) 0.1 (0.0-2.0) % Neut # (Auto) 13.4 H (1.8-7.0) K/uL Lymph # (Auto) 0.6 L (1.0-4.3) K/uL Ada # (Auto) 1.1 H (0.0-0.8) K/uL Eos # (Auto) 0.0 (0.0-0.7) K/uL Baso # (Auto) 0.0 (0.0-0.2) K/uL Neutrophils % (Manual) 86 H (50-75) % Band Neutrophils % 1 (0-2) % Lymphocytes % (Manual) 6 L (20-40) % Monocytes % (Manual) 6 (0-10) % Metamyelocytes % 1 H (0-0) % Platelet Estimate Normal (NORMAL) Hypochromasia (manual) Slight Poikilocytosis (manual Slight Basophilic Stippling Slight Anisocytosis (manual) Moderate Ovalocytes Moderate Sodium 143 (132-148) mmol/L Potassium 4.3 (3.6-5.2) mmol/L Chloride 100 (98-107) mmol/L Carbon Dioxide 29 (22-30) mmol/L Anion Gap 18 (10-20) BUN 14 (9-20) mg/dL Creatinine 0.7 L (0.8-1.5) mg/dL Est GFR ( Amer) > 60 Est GFR (Non-Af Amer) > 60 POC Glucose (mg/dL) 248 H (65-110) mg/dL Random Glucose 239 H (75-110) mg/dL Calcium 8.8 (8.6-10.4) mg/dl Phosphorus 4.1 (2.5-4.5) mg/dL Magnesium 2.4 H (1.6-2.3) mg/dL Total Bilirubin 0.4 (0.2-1.3) mg/dL AST 27 (17-59) U/L ALT 35 (21-72) U/L Alkaline Phosphatase 79 (38-126) U/L Total Protein 6.4 (6.3-8.3) g/dL Albumin 3.7 (3.5-5.0) g/dL Globulin 2.7 (2.2-3.9) gm/dL Albumin/Globulin Ratio 1.4 (1.0-2.1) 12/07/17 12/06/17 12/06/17 Range/Units 00:07 16:26 12:50 WBC (4.8-10.8) K/uL RBC (4.40-5.90) Mil/uL Hgb (12.0-18.0) g/dL Hct (35.0-51.0) % MCV (80.0-94.0) fL MCH (27.0-31.0) pg MCHC (33.0-37.0) g/dL RDW (11.5-14.5) % Plt Count (130-400) K/uL MPV (7.2-11.7) fL Neut % (Auto) (50.0-75.0) % Lymph % (Auto) (20.0-40.0) % Ada % (Auto) (0.0-10.0) % Eos % (Auto) (0.0-4.0) % Baso % (Auto) (0.0-2.0) % Neut # (Auto) (1.8-7.0) K/uL Lymph # (Auto) (1.0-4.3) K/uL Ada # (Auto) (0.0-0.8) K/uL Eos # (Auto) (0.0-0.7) K/uL Baso # (Auto) (0.0-0.2) K/uL Neutrophils % (Manual) (50-75) % Band Neutrophils % (0-2) % Lymphocytes % (Manual) (20-40) % Monocytes % (Manual) (0-10) % Metamyelocytes % (0-0) % Platelet Estimate (NORMAL) Hypochromasia (manual) Poikilocytosis (manual Basophilic Stippling Anisocytosis (manual) Ovalocytes Sodium (132-148) mmol/L Potassium (3.6-5.2) mmol/L Chloride (98-107) mmol/L Carbon Dioxide (22-30) mmol/L Anion Gap (10-20) BUN (9-20) mg/dL Creatinine (0.8-1.5) mg/dL Est GFR ( Amer) Est GFR (Non-Af Amer) POC Glucose (mg/dL) 204 H 249 H 156 H (65-110) mg/dL Random Glucose (75-110) mg/dL Calcium (8.6-10.4) mg/dl Phosphorus (2.5-4.5) mg/dL Magnesium (1.6-2.3) mg/dL Total Bilirubin (0.2-1.3) mg/dL AST (17-59) U/L ALT (21-72) U/L Alkaline Phosphatase (38-126) U/L Total Protein (6.3-8.3) g/dL Albumin (3.5-5.0) g/dL Globulin (2.2-3.9) gm/dL Albumin/Globulin Ratio (1.0-2.1) Laboratory Results - last 24 hr 12/06/17 12/06/17 12/07/17 12:50 16:26 00:07 WBC RBC Hgb Hct MCV MCH MCHC RDW Plt Count MPV Neut % (Auto) Lymph % (Auto) Ada % (Auto) Eos % (Auto) Baso % (Auto) Neut # (Auto) Lymph # (Auto) Ada # (Auto) Eos # (Auto) Baso # (Auto) Neutrophils % (Manual) Band Neutrophils % Lymphocytes % (Manual) Monocytes % (Manual) Metamyelocytes % Platelet Estimate Hypochromasia (manual) Poikilocytosis (manual Basophilic Stippling Anisocytosis (manual) Ovalocytes Sodium Potassium Chloride Carbon Dioxide Anion Gap BUN Creatinine Est GFR ( Amer) Est GFR (Non-Af Amer) POC Glucose (mg/dL) 156 H 249 H 204 H Random Glucose Calcium Phosphorus Magnesium Total Bilirubin AST ALT Alkaline Phosphatase Total Protein Albumin Globulin Albumin/Globulin Ratio 12/07/17 12/07/17 12/07/17 05:44 06:12 06:12 WBC 15.2 H RBC 4.49 Hgb 10.3 L Hct 32.1 L MCV 71.5 L MCH 22.9 L MCHC 32.1 L RDW 18.4 H Plt Count 270 MPV 8.7 Neut % (Auto) 88.5 H Lymph % (Auto) 4.1 L Ada % (Auto) 7.3 Eos % (Auto) 0.0 Baso % (Auto) 0.1 Neut # (Auto) 13.4 H Lymph # (Auto) 0.6 L Ada # (Auto) 1.1 H Eos # (Auto) 0.0 Baso # (Auto) 0.0 Neutrophils % (Manual) 86 H Band Neutrophils % 1 Lymphocytes % (Manual) 6 L Monocytes % (Manual) 6 Metamyelocytes % 1 H Platelet Estimate Normal Hypochromasia (manual) Slight Poikilocytosis (manual Slight Basophilic Stippling Slight Anisocytosis (manual) Moderate Ovalocytes Moderate Sodium 143 Potassium 4.3 Chloride 100 Carbon Dioxide 29 Anion Gap 18 BUN 14 Creatinine 0.7 L Est GFR ( Amer) > 60 Est GFR (Non-Af Amer) > 60 POC Glucose (mg/dL) 248 H Random Glucose 239 H Calcium 8.8 Phosphorus 4.1 Magnesium 2.4 H Total Bilirubin 0.4 AST 27 ALT 35 Alkaline Phosphatase 79 Total Protein 6.4 Albumin 3.7 Globulin 2.7 Albumin/Globulin Ratio 1.4 Fingerstick Blood Sugar Results: 248 Critical Care Progress Note - Nutrition Nutrition: Nutrition Category Date Time Status Liquid Diet [DIET] Diets 12/07/17 Breakfast Active Assessment/Plan - Assessment and Plan (Free Text) Assessment: This is a 67 year old male with PMHx COPD, drug induced diabetes, sleep apnea, colon CA s/p resection. He is post op reversal of illeostomy and was sent to the ICU for monitoring. Neuro Awake, verbal Cardio No active issues Pulm Assessment: COPD Exacerbation Duoneb Q4H Pulmicort 1 mg Q12H Advair 1 puff Q12H Singulair 10 mg PO HS Roflumilast 500 mcg PO daily Solumedrol 60 mg IV Q12H GI Liquid diet Protonix 40 mg PO daily Endocrine Assessment: Drug-induced Diabetes Aspart ISS ACHS Renal No active issues Getting lactated ringers 42 cc/hr Infectious Disease Cefoxitin 1 gm Q8 post op Flagyl 500 mg IV Q8H post op Prophylaxis DVT ppx was restarted Protonix 40 mg PO daily Toradol PO prn for pain Disposition: Patient is no longer wheezing. He will be re-assessed in the afternoon to determine if the patient can be downgraded from critical care. Discussed with Dr. Timothy Benitez <Veronica Benitez - Last Filed: 12/07/17 14:04> CCU Objective - Vital Signs / Intake & Output Vital Signs (Last 4 hours): Vital Signs Temp Pulse Resp BP Pulse Ox 12/07/17 13:47 118/72 12/07/17 13:46 100 H 19 95 12/07/17 12:47 103 H 15 130/83 86 L 12/07/17 12:00 98.2 F 98 H 13 95 12/07/17 11:47 97 H 12 114/69 96 12/07/17 10:47 94 H 12 117/67 97 Intake and Output (Last 8hrs): Intake & Output 12/06/17 12/07/17 12/07/17 22:59 06:59 14:59 Intake Total 184 402 252 Output Total 365 320 80 Balance -181 82 172 Weight 153 lb Intake: Intake, IV Amount 184 402 252 left forearm 184 402 252 Oral 0 Output: Urine 365 320 80 Urethral ([place]) 190 320 80 Other: # Voids Urine, Voided 0 - Medications Active Medications: Active Medications Generic Name Dose Route Start Last Admin Trade Name Freq PRN Reason Stop Dose Admin Albuterol/Ipratropium 3 ml 12/07/17 14:00 Duoneb 3 Mg/0.5 Mg (3 Ml) Ud INH RQ6 [facility]ANCE Budesonide 1 mg 12/04/17 20:00 12/07/17 07:34 Pulmicort Respules IH 0.5 mg RQ12 [facility]ANCE Administration Enoxaparin Sodium 40 mg 12/05/17 10:00 12/07/17 10:35 Lovenox SC 40 mg DAILY [facility]ANCE Administration Cefoxitin Sodium 1 gm in 50 mls @ 50 mls/hr 12/06/17 17:00 12/07/17 08:45 Mefoxin Iv 1 Gm Duplex IVPB 12/07/17 17:01 50 mls/hr Q8H [facility]ANCE Administration Protocol Metronidazole 500 mg in 100 mls @ 100 mls/hr 12/06/17 22:00 12/07/17 13:34 Flagyl IVPB 100 mls/hr Q8H CHANCE Administration Protocol Insulin Aspart 0 unit 12/07/17 16:30 Novolog SC ACHS [facility] Protocol Ketorolac Tromethamine 10 mg 12/07/17 08:58 Toradol PO Q6 PRN Pain, severe (8-10) Montelukast Sodium 10 mg 12/04/17 22:00 12/06/17 21:51 Singulair PO Not Given HS [facility] Multivitamins 1 tab 12/05/17 10:00 12/07/17 10:27 Hexavitamin PO 1 tab DAILY [facility]ANCE Administration Pantoprazole Sodium 40 mg 12/07/17 10:00 12/07/17 10:27 Protonix Ec Tab PO 40 mg DAILY [facility]ANCE Administration Roflumilast 500 mcg 12/05/17 10:00 12/07/17 10:43 Daliresp PO 500 mcg DAILY [facility]ANCE Administration Fluticasone/Salmeterol 1 puff 12/04/17 20:00 12/07/17 07:35 Advair Diskus 250/50 INH Not Given RQ12 CHANCE - Patient Studies Lab Studies: Microbiology Studies 12/04/17 10:00 S.aureus & Coag-Neg Staph PNA FISH - Final Blood Blood Culture - Final Coagulase Neg Staphylococcus Gram Stain - Final 12/06/17 21:46 Urine Culture - Final Urine,[place] No Growth (<1,000 CFU/ML) 12/04/17 08:15 Blood Culture - Preliminary Blood NO GROWTH AFTER 48 HOURS Lab Studies 12/07/17 12/07/17 12/07/17 Range/Units 12:02 06:12 06:12 WBC 15.2 H (4.8-10.8) K/uL RBC 4.49 (4.40-5.90) Mil/uL Hgb 10.3 L (12.0-18.0) g/dL Hct 32.1 L (35.0-51.0) % MCV 71.5 L (80.0-94.0) fL MCH 22.9 L (27.0-31.0) pg MCHC 32.1 L (33.0-37.0) g/dL RDW 18.4 H (11.5-14.5) % Plt Count 270 (130-400) K/uL MPV 8.7 (7.2-11.7) fL Neut % (Auto) 88.5 H (50.0-75.0) % Lymph % (Auto) 4.1 L (20.0-40.0) % Ada % (Auto) 7.3 (0.0-10.0) % Eos % (Auto) 0.0 (0.0-4.0) % Baso % (Auto) 0.1 (0.0-2.0) % Neut # (Auto) 13.4 H (1.8-7.0) K/uL Lymph # (Auto) 0.6 L (1.0-4.3) K/uL Ada # (Auto) 1.1 H (0.0-0.8) K/uL Eos # (Auto) 0.0 (0.0-0.7) K/uL Baso # (Auto) 0.0 (0.0-0.2) K/uL Neutrophils % (Manual) 86 H (50-75) % Band Neutrophils % 1 (0-2) % Lymphocytes % (Manual) 6 L (20-40) % Monocytes % (Manual) 6 (0-10) % Metamyelocytes % 1 H (0-0) % Platelet Estimate Normal (NORMAL) Hypochromasia (manual) Slight Poikilocytosis (manual Slight Basophilic Stippling Slight Anisocytosis (manual) Moderate Ovalocytes Moderate Sodium 143 (132-148) mmol/L Potassium 4.3 (3.6-5.2) mmol/L Chloride 100 (98-107) mmol/L Carbon Dioxide 29 (22-30) mmol/L Anion Gap 18 (10-20) BUN 14 (9-20) mg/dL Creatinine 0.7 L (0.8-1.5) mg/dL Est GFR ( Amer) > 60 Est GFR (Non-Af Amer) > 60 POC Glucose (mg/dL) 152 H (65-110) mg/dL Random Glucose 239 H (75-110) mg/dL Calcium 8.8 (8.6-10.4) mg/dl Phosphorus 4.1 (2.5-4.5) mg/dL Magnesium 2.4 H (1.6-2.3) mg/dL Total Bilirubin 0.4 (0.2-1.3) mg/dL AST 27 (17-59) U/L ALT 35 (21-72) U/L Alkaline Phosphatase 79 (38-126) U/L Total Protein 6.4 (6.3-8.3) g/dL Albumin 3.7 (3.5-5.0) g/dL Globulin 2.7 (2.2-3.9) gm/dL Albumin/Globulin Ratio 1.4 (1.0-2.1) 12/07/17 12/07/17 12/06/17 Range/Units 05:44 00:07 16:26 WBC (4.8-10.8) K/uL RBC (4.40-5.90) Mil/uL Hgb (12.0-18.0) g/dL Hct (35.0-51.0) % MCV (80.0-94.0) fL MCH (27.0-31.0) pg MCHC (33.0-37.0) g/dL RDW (11.5-14.5) % Plt Count (130-400) K/uL MPV (7.2-11.7) fL Neut % (Auto) (50.0-75.0) % Lymph % (Auto) (20.0-40.0) % Ada % (Auto) (0.0-10.0) % Eos % (Auto) (0.0-4.0) % Baso % (Auto) (0.0-2.0) % Neut # (Auto) (1.8-7.0) K/uL Lymph # (Auto) (1.0-4.3) K/uL Ada # (Auto) (0.0-0.8) K/uL Eos # (Auto) (0.0-0.7) K/uL Baso # (Auto) (0.0-0.2) K/uL Neutrophils % (Manual) (50-75) % Band Neutrophils % (0-2) % Lymphocytes % (Manual) (20-40) % Monocytes % (Manual) (0-10) % Metamyelocytes % (0-0) % Platelet Estimate (NORMAL) Hypochromasia (manual) Poikilocytosis (manual Basophilic Stippling Anisocytosis (manual) Ovalocytes Sodium (132-148) mmol/L Potassium (3.6-5.2) mmol/L Chloride (98-107) mmol/L Carbon Dioxide (22-30) mmol/L Anion Gap (10-20) BUN (9-20) mg/dL Creatinine (0.8-1.5) mg/dL Est GFR ( Amer) Est GFR (Non-Af Amer) POC Glucose (mg/dL) 248 H 204 H 249 H (65-110) mg/dL Random Glucose (75-110) mg/dL Calcium (8.6-10.4) mg/dl Phosphorus (2.5-4.5) mg/dL Magnesium (1.6-2.3) mg/dL Total Bilirubin (0.2-1.3) mg/dL AST (17-59) U/L ALT (21-72) U/L Alkaline Phosphatase (38-126) U/L Total Protein (6.3-8.3) g/dL Albumin (3.5-5.0) g/dL Globulin (2.2-3.9) gm/dL Albumin/Globulin Ratio (1.0-2.1) 12/06/17 Range/Units 12:50 WBC (4.8-10.8) K/uL RBC (4.40-5.90) Mil/uL Hgb (12.0-18.0) g/dL Hct (35.0-51.0) % MCV (80.0-94.0) fL MCH (27.0-31.0) pg MCHC (33.0-37.0) g/dL RDW (11.5-14.5) % Plt Count (130-400) K/uL MPV (7.2-11.7) fL Neut % (Auto) (50.0-75.0) % Lymph % (Auto) (20.0-40.0) % Ada % (Auto) (0.0-10.0) % Eos % (Auto) (0.0-4.0) % Baso % (Auto) (0.0-2.0) % Neut # (Auto) (1.8-7.0) K/uL Lymph # (Auto) (1.0-4.3) K/uL Ada # (Auto) (0.0-0.8) K/uL Eos # (Auto) (0.0-0.7) K/uL Baso # (Auto) (0.0-0.2) K/uL Neutrophils % (Manual) (50-75) % Band Neutrophils % (0-2) % Lymphocytes % (Manual) (20-40) % Monocytes % (Manual) (0-10) % Metamyelocytes % (0-0) % Platelet Estimate (NORMAL) Hypochromasia (manual) Poikilocytosis (manual Basophilic Stippling Anisocytosis (manual) Ovalocytes Sodium (132-148) mmol/L Potassium (3.6-5.2) mmol/L Chloride (98-107) mmol/L Carbon Dioxide (22-30) mmol/L Anion Gap (10-20) BUN (9-20) mg/dL Creatinine (0.8-1.5) mg/dL Est GFR ( Amer) Est GFR (Non-Af Amer) POC Glucose (mg/dL) 156 H (65-110) mg/dL Random Glucose (75-110) mg/dL Calcium (8.6-10.4) mg/dl Phosphorus (2.5-4.5) mg/dL Magnesium (1.6-2.3) mg/dL Total Bilirubin (0.2-1.3) mg/dL AST (17-59) U/L ALT (21-72) U/L Alkaline Phosphatase (38-126) U/L Total Protein (6.3-8.3) g/dL Albumin (3.5-5.0) g/dL Globulin (2.2-3.9) gm/dL Albumin/Globulin Ratio (1.0-2.1) Laboratory Results - last 24 hr 12/06/17 12/06/17 12/07/17 12:50 16:26 00:07 WBC RBC Hgb Hct MCV MCH MCHC RDW Plt Count MPV Neut % (Auto) Lymph % (Auto) Ada % (Auto) Eos % (Auto) Baso % (Auto) Neut # (Auto) Lymph # (Auto) Ada # (Auto) Eos # (Auto) Baso # (Auto) Neutrophils % (Manual) Band Neutrophils % Lymphocytes % (Manual) Monocytes % (Manual) Metamyelocytes % Platelet Estimate Hypochromasia (manual) Poikilocytosis (manual Basophilic Stippling Anisocytosis (manual) Ovalocytes Sodium Potassium Chloride Carbon Dioxide Anion Gap BUN Creatinine Est GFR ( Amer) Est GFR (Non-Af Amer) POC Glucose (mg/dL) 156 H 249 H 204 H Random Glucose Calcium Phosphorus Magnesium Total Bilirubin AST ALT Alkaline Phosphatase Total Protein Albumin Globulin Albumin/Globulin Ratio 12/07/17 12/07/17 12/07/17 05:44 06:12 06:12 WBC 15.2 H RBC 4.49 Hgb 10.3 L Hct 32.1 L MCV 71.5 L MCH 22.9 L MCHC 32.1 L RDW 18.4 H Plt Count 270 MPV 8.7 Neut % (Auto) 88.5 H Lymph % (Auto) 4.1 L Ada % (Auto) 7.3 Eos % (Auto) 0.0 Baso % (Auto) 0.1 Neut # (Auto) 13.4 H Lymph # (Auto) 0.6 L Ada # (Auto) 1.1 H Eos # (Auto) 0.0 Baso # (Auto) 0.0 Neutrophils % (Manual) 86 H Band Neutrophils % 1 Lymphocytes % (Manual) 6 L Monocytes % (Manual) 6 Metamyelocytes % 1 H Platelet Estimate Normal Hypochromasia (manual) Slight Poikilocytosis (manual Slight Basophilic Stippling Slight Anisocytosis (manual) Moderate Ovalocytes Moderate Sodium 143 Potassium 4.3 Chloride 100 Carbon Dioxide 29 Anion Gap 18 BUN 14 Creatinine 0.7 L Est GFR ( Amer) > 60 Est GFR (Non-Af Amer) > 60 POC Glucose (mg/dL) 248 H Random Glucose 239 H Calcium 8.8 Phosphorus 4.1 Magnesium 2.4 H Total Bilirubin 0.4 AST 27 ALT 35 Alkaline Phosphatase 79 Total Protein 6.4 Albumin 3.7 Globulin 2.7 Albumin/Globulin Ratio 1.4 12/07/17 12:02 WBC RBC Hgb Hct MCV MCH MCHC RDW Plt Count MPV Neut % (Auto) Lymph % (Auto) Ada % (Auto) Eos % (Auto) Baso % (Auto) Neut # (Auto) Lymph # (Auto) Ada # (Auto) Eos # (Auto) Baso # (Auto) Neutrophils % (Manual) Band Neutrophils % Lymphocytes % (Manual) Monocytes % (Manual) Metamyelocytes % Platelet Estimate Hypochromasia (manual) Poikilocytosis (manual Basophilic Stippling Anisocytosis (manual) Ovalocytes Sodium Potassium Chloride Carbon Dioxide Anion Gap BUN Creatinine Est GFR ( Amer) Est GFR (Non-Af Amer) POC Glucose (mg/dL) 152 H Random Glucose Calcium Phosphorus Magnesium Total Bilirubin AST ALT Alkaline Phosphatase Total Protein Albumin Globulin Albumin/Globulin Ratio Critical Care Progress Note - Nutrition Nutrition: Nutrition Category Date Time Status Liquid Diet [DIET] Diets 12/07/17 Breakfast Active Assessment/Plan - Assessment and Plan (Free Text) Plan: Above resident note reviewed and verified. -COPD : wheezing resolved,. d/c solumedorl (avoid delayed wound healing), continue bronchodialtrs and bi-pap at night -Toelrating clear liquids, (+)flatus, no BMs -abdominal bands and wound care as per surgery team -continue dvt/pud ppx Patient has stable severe COPD requiring oxygen at 2 liters and bi-pap at night -d/c all opioids, use toradol for pain control -PT/OT - Date & Time Date: 12/07/17 Time: 14:04
--- NOTE | 2017-12-07 13:24 | CP.PCM.PN ---
Subjective - Date & Time of Evaluation Date of Evaluation: 12/07/17 Time of Evaluation: 10:20 - Subjective Subjective: The patient was seen and examined at bedside resting comfortably. The patient is POD #1 ileosteomy revision. Today he has no complaints other than some surgical site pain. 1. Acute COPD exacerbation, resolved - Saturating 97-100% on 3L NC, BiPAP on standby - CXR 12/04: bibasilar atelectasis - CBC 12/06: WBC 14.0/ no bands - ABG 12/04: 7.40/45/126/27 - duonebs - solumedrol 2. Post-operation respiratory complication prophylaxis - IS - duonebs - continue to monitor Objective - Vital Signs/Intake and Output Vital Signs (last 24 hours): Temp Pulse Resp BP Pulse Ox 98.2 F 98 H 13 114/69 95 12/07/17 12:00 12/07/17 12:00 12/07/17 12:00 12/07/17 11:47 12/07/17 12:00 Intake and Output: 12/07/17 12/07/17 06:59 18:59 Intake Total 586 210 Output Total 510 80 Balance 76 130 - Medications Medications: Current Medications Albuterol/Ipratropium (Duoneb 3 Mg/0.5 Mg (3 Ml) Ud) 3 ml INH RQ6 [facility] Budesonide (Pulmicort Respules) 1 mg IH RQ12 [facility] [place] Last Admin: 12/07/17 07:34 Dose: 0.5 mg Enoxaparin Sodium (Lovenox) 40 mg SC DAILY [facility] [place] Last Admin: 12/07/17 10:35 Dose: 40 mg Cefoxitin Sodium (Mefoxin Iv 1 Gm Duplex) 1 gm in 50 mls @ 50 mls/hr IVPB Q8H [facility] PRN Reason: Protocol Stop: 12/07/17 17:01 Last Admin: 12/07/17 08:45 Dose: 50 mls/hr Metronidazole (Flagyl) 500 mg in 100 mls @ 100 mls/hr IVPB Q8H [facility] PRN Reason: Protocol Last Admin: 12/07/17 05:06 Dose: 100 mls/hr Insulin Aspart (Novolog) 0 unit SC ACHS [facility] PRN Reason: Protocol Ketorolac Tromethamine (Toradol) 10 mg PO Q6 PRN PRN Reason: Pain, severe (8-10) Montelukast Sodium (Singulair) 10 mg PO HS [facility] [place] Last Admin: 12/06/17 21:51 Dose: Not Given Multivitamins (Hexavitamin) 1 tab PO DAILY [facility] [place] Last Admin: 12/07/17 10:27 Dose: 1 tab Pantoprazole Sodium (Protonix Ec Tab) 40 mg PO DAILY [facility] [place] Last Admin: 12/07/17 10:27 Dose: 40 mg Roflumilast (Daliresp) 500 mcg PO DAILY [facility] [place] Last Admin: 12/07/17 10:43 Dose: 500 mcg Fluticasone/Salmeterol (Advair Diskus 250/50) 1 puff INH RQ12 [facility] [place] Last Admin: 12/07/17 07:35 Dose: Not Given - Labs Labs: 12/07/17 06:12 12/07/17 06:12 PT 10.8 SECONDS (9.7-12.2) 12/04/17 09:38 INR 1.0 12/04/17 09:38 APTT 28 SECONDS (21-34) 12/04/17 09:38
[2017-12-07] MEDS: Verapamil 120 mg ER Tab PO SCH (16:24)
--- NOTE | 2017-12-07 20:52 | PN ---
DATE: 12/07/2017 SUBJECTIVE: The patient underwent closure of ileostomy. He denies any chest pain. He is experiencing anxiety, sinus tachycardia. PHYSICAL EXAMINATION: VITAL SIGNS: Blood pressure 118/72, heart rate 99, temperature 98.2, respirations 15. HEENT: Normocephalic. CHEST: Minimal bilateral rhonchi. HEART: S1 and S2 regular. EXTREMITIES: No pedal edema. LABORATORY DATA: SMA-7, sodium 143, potassium 4.3 chloride 100, CO2 29, glucose 239, BUN 14, creatinine 0.7. Today's hemoglobin and hematocrit 10.3 and 32.1, white count 15.2, platelet count 270,000. ASSESSMENT: 1. Status post closure of ileostomy. 2. Chronic obstructive lung disease. 3. Physiologic sinus tachycardia. 4. Remote history of atrial fibrillation. 5. Anxiety disorder. 6. Uncontrolled diabetes mellitus. RECOMMENDATION: Continue Verapamil SR at 120 mg once a day, continue Advair inhalation, continue IV Flagyl, continue subcutaneous Lovenox at 40 mg daily. Continue Mefoxin at 1 gm intravenously every 8 hours. I discussed with the automotive fleet supervisor administering Xanax. We will obtain postoperative EKG. Mukesh Correia MD
[2017-12-08] MEDS: Albuterol-Ipratrop 3 mg / 0.5 (3 ml) UD INH SCH ×4 (01:14→19:13)
[2017-12-08] MEDS: Budesonide 0.5 mg/2 ml Inhal Susp UD IH SCH (07:34)
[2017-12-08] MEDS: (Novolog) Insulin Aspart, Recombinant 100 u/ml 10 ml vial SC SCH ×4 (07:50→21:32)
--- NOTE | 2017-12-08 08:01 | CP.PCM.PN ---
Subjective - Date & Time of Evaluation Date of Evaluation: 12/07/17 Time of Evaluation: 18:00 - Subjective Subjective: pt is seen and evaluated s/p reversal of colostomy, he is extubated, less tachycardia, shortness of breath Objective - Vital Signs/Intake and Output Vital Signs (last 24 hours): Temp Pulse Resp BP Pulse Ox 98 F 99 H 17 130/83 100 12/08/17 04:00 12/08/17 06:15 12/08/17 04:00 12/08/17 04:00 12/08/17 04:00 Intake and Output: 12/08/17 12/08/17 06:59 18:59 Intake Total 350 Output Total 400 Balance -50 - Medications Medications: Current Medications Albuterol/Ipratropium (Duoneb 3 Mg/0.5 Mg (3 Ml) Ud) 3 ml INH RQ6 [facility] Last Admin: 12/08/17 07:34 Dose: 3 ml Alprazolam (Xanax) 0.5 mg PO Q12H [facility] Last Admin: 12/07/17 20:54 Dose: 0.5 mg Budesonide (Pulmicort Respules) 1 mg IH RQ12 [facility] Last Admin: 12/08/17 07:34 Dose: 1 mg Enoxaparin Sodium (Lovenox) 40 mg SC DAILY [facility] Last Admin: 12/07/17 10:35 Dose: 40 mg Insulin Aspart (Novolog) 0 unit SC ACHS [facility] PRN Reason: Protocol Last Admin: 12/08/17 07:50 Dose: Not Given Ketorolac Tromethamine (Toradol) 10 mg PO Q6 PRN PRN Reason: Pain, severe (8-10) Last Admin: 12/08/17 04:04 Dose: 10 mg Montelukast Sodium (Singulair) 10 mg PO HS [facility] Last Admin: 12/07/17 22:48 Dose: 10 mg Multivitamins (Hexavitamin) 1 tab PO DAILY [facility] Last Admin: 12/07/17 10:27 Dose: 1 tab Pantoprazole Sodium (Protonix Ec Tab) 40 mg PO DAILY [facility] Last Admin: 12/07/17 10:27 Dose: 40 mg Roflumilast (Daliresp) 500 mcg PO DAILY [facility] Last Admin: 12/07/17 10:43 Dose: 500 mcg Fluticasone/Salmeterol (Advair Diskus 250/50) 1 puff INH RQ12 [facility] Last Admin: 12/07/17 19:27 Dose: Not Given Verapamil HCl (Calan Sr Tab) 120 mg PO DAILY [facility] Last Admin: 12/07/17 16:24 Dose: 120 mg - Labs Labs: 12/07/17 06:12 12/07/17 06:12 PT 10.8 SECONDS (9.7-12.2) 12/04/17 09:38 INR 1.0 12/04/17 09:38 APTT 28 SECONDS (21-34) 12/04/17 09:38 - Constitutional Appears: No Acute Distress - Head Exam Head Exam: ATRAUMATIC, NORMAL INSPECTION, NORMOCEPHALIC - Eye Exam Eye Exam: EOMI, Normal appearance, PERRL Pupil Exam: NORMAL ACCOMODATION, PERRL - ENT Exam ENT Exam: Mucous Membranes Moist, Normal Exam - Respiratory Exam Respiratory Exam: Decreased Breath Sounds, Rales, Rhonchi, NORMAL BREATHING PATTERN - Cardiovascular Exam Cardiovascular Exam: Tachycardia, +S1, +S2. absent: Murmur - GI/Abdominal Exam GI & Abdominal Exam: Soft, Normal Bowel Sounds. absent: Tenderness - Rectal Exam Rectal Exam: Deferred Assessment and Plan (1) History of colostomy reversal Status: Acute (2) COPD exacerbation Status: Acute (3) BiPAP (biphasic positive airway pressure) dependence Status: Acute (4) Acute and chronic respiratory failure ([id number]) Status: Acute (5) Colostomy complication Status: Acute
--- NOTE | 2017-12-08 08:24 | CP.PCM.PN ---
Subjective - Date & Time of Evaluation Date of Evaluation: 12/08/17 Time of Evaluation: 07:30 - Subjective Subjective: General surgery progress note for Dr. Barak Hanna, PGY-1 Pt S & E at bedside. Pt c/o severe pain overnight, not well controlled. Is currently on Bipap. Denies N & V, F & C. Objective - Vital Signs/Intake and Output Vital Signs (last 24 hours): Temp Pulse Resp BP Pulse Ox 98.4 F 96 H 18 130/83 100 12/08/17 07:58 12/08/17 07:58 12/08/17 07:58 12/08/17 04:00 12/08/17 07:58 Intake and Output: 12/08/17 12/08/17 06:59 18:59 Intake Total 350 Output Total 400 Balance -50 - Medications Medications: Current Medications Albuterol/Ipratropium (Duoneb 3 Mg/0.5 Mg (3 Ml) Ud) 3 ml INH RQ6 [facility] Last Admin: 12/08/17 07:34 Dose: 3 ml Alprazolam (Xanax) 0.5 mg PO Q12H [facility] Last Admin: 12/07/17 20:54 Dose: 0.5 mg Budesonide (Pulmicort Respules) 1 mg IH RQ12 [facility] Last Admin: 12/08/17 07:34 Dose: 1 mg Enoxaparin Sodium (Lovenox) 40 mg SC DAILY [facility] Last Admin: 12/07/17 10:35 Dose: 40 mg Insulin Aspart (Novolog) 0 unit SC ACHS [facility] PRN Reason: Protocol Last Admin: 12/08/17 07:50 Dose: Not Given Ketorolac Tromethamine (Toradol) 10 mg PO Q6 PRN PRN Reason: Pain, severe (8-10) Last Admin: 12/08/17 04:04 Dose: 10 mg Montelukast Sodium (Singulair) 10 mg PO HS [facility] Last Admin: 12/07/17 22:48 Dose: 10 mg Multivitamins (Hexavitamin) 1 tab PO DAILY [facility] Last Admin: 12/07/17 10:27 Dose: 1 tab Oxycodone HCl (Oxycontin Extended Release Tab) 20 mg PO Q12 PRN PRN Reason: Pain, moderate (4-7) Pantoprazole Sodium (Protonix Ec Tab) 40 mg PO DAILY [facility] Last Admin: 12/07/17 10:27 Dose: 40 mg Roflumilast (Daliresp) 500 mcg PO DAILY [facility] Last Admin: 12/07/17 10:43 Dose: 500 mcg Fluticasone/Salmeterol (Advair Diskus 250/50) 1 puff INH RQ12 [facility] Last Admin: 12/07/17 19:27 Dose: Not Given Verapamil HCl (Calan Sr Tab) 120 mg PO DAILY [facility] Last Admin: 12/07/17 16:24 Dose: 120 mg - Labs Labs: 12/07/17 06:12 12/07/17 06:12 PT 10.8 SECONDS (9.7-12.2) 12/04/17 09:38 INR 1.0 12/04/17 09:38 APTT 28 SECONDS (21-34) 12/04/17 09:38 - Constitutional Appears: Non-toxic, No Acute Distress - Head Exam Head Exam: ATRAUMATIC, NORMAL INSPECTION, NORMOCEPHALIC - Eye Exam Eye Exam: EOMI, Normal appearance - ENT Exam ENT Exam: Mucous Membranes Moist, Normal Exam - Neck Exam Neck Exam: Full ROM, Normal Inspection - Respiratory Exam Respiratory Exam: NORMAL BREATHING PATTERN (on bipap) - Cardiovascular Exam Cardiovascular Exam: Tachycardia, +S1, +S2 - GI/Abdominal Exam GI & Abdominal Exam: Distended (mild), Soft, Tenderness (diffuse). absent: Guarding, Rigid, Rebound - Extremities Exam Extremities Exam: Normal Inspection - Neurological Exam Neurological Exam: Alert, Awake, CN II-XII Intact, Oriented x3 - Psychiatric Exam Psychiatric exam: Normal Affect, Normal Mood - Skin Skin Exam: Dry, Intact, Normal Color, Warm Additional comments: abdominal dressing in place with moderate dried serosanguinous strike through Assessment and Plan - Assessment and Plan (Free Text) Assessment: 67M POD #2 s/p ileostomy reversal Plan: Pain control PRN Encouraged pt to drink liquids slowly Cont CLD for now Monitor for bowel function OOBTC Encourage IS use DW attending Cyndi, PGY-1
[2017-12-08] MEDS: Multiple Vitamins Tab PO SCH (09:34)
[2017-12-08] MEDS: Verapamil 120 mg ER Tab PO SCH (09:35)
[2017-12-08] MEDS: Pantoprazole 40 mg EC Tab PO SCH (09:35)
[2017-12-08] MEDS: oxyCODONE 20 mg ER Tab (oxyCONTIN) PO PRN ×2 (09:35→21:45)
[2017-12-08] MEDS: Enoxaparin 40 mg Syringe SC SCH (09:37)
--- NOTE | 2017-12-08 09:54 | CP.PCM.PN ---
Subjective - Date & Time of Evaluation Date of Evaluation: 12/08/17 - Subjective Subjective: Pt seen and evalauted today Objective - Vital Signs/Intake and Output Vital Signs (last 24 hours): Temp Pulse Resp BP Pulse Ox 98.4 F 96 H 18 130/83 100 12/08/17 07:58 12/08/17 08:30 12/08/17 07:58 12/08/17 04:00 12/08/17 07:58 Intake and Output: 12/08/17 12/08/17 06:59 18:59 Intake Total 350 Output Total 400 Balance -50 - Medications Medications: Current Medications Albuterol/Ipratropium (Duoneb 3 Mg/0.5 Mg (3 Ml) Ud) 3 ml INH RQ6 [facility] Last Admin: 12/08/17 07:34 Dose: 3 ml Alprazolam (Xanax) 0.5 mg PO Q12H [facility] Last Admin: 12/08/17 09:34 Dose: 0.5 mg Budesonide (Pulmicort Respules) 1 mg IH RQ12 [facility] Last Admin: 12/08/17 07:34 Dose: 1 mg Enoxaparin Sodium (Lovenox) 40 mg SC DAILY [facility] Last Admin: 12/08/17 09:37 Dose: 40 mg Insulin Aspart (Novolog) 0 unit SC ACHS [facility] PRN Reason: Protocol Last Admin: 12/08/17 07:50 Dose: Not Given Ketorolac Tromethamine (Toradol) 10 mg PO Q6 PRN PRN Reason: Pain, severe (8-10) Last Admin: 12/08/17 04:04 Dose: 10 mg Montelukast Sodium (Singulair) 10 mg PO HS [facility] Last Admin: 12/07/17 22:48 Dose: 10 mg Multivitamins (Hexavitamin) 1 tab PO DAILY [facility] Last Admin: 12/08/17 09:34 Dose: 1 tab Oxycodone HCl (Oxycontin Extended Release Tab) 20 mg PO Q12 PRN PRN Reason: Pain, moderate (4-7) Last Admin: 12/08/17 09:35 Dose: 20 mg Pantoprazole Sodium (Protonix Ec Tab) 40 mg PO DAILY [facility] Last Admin: 12/08/17 09:35 Dose: 40 mg Roflumilast (Daliresp) 500 mcg PO DAILY [facility] Last Admin: 12/08/17 09:34 Dose: 500 mcg Fluticasone/Salmeterol (Advair Diskus 250/50) 1 puff INH RQ12 [facility] Last Admin: 12/07/17 19:27 Dose: Not Given Verapamil HCl (Calan Sr Tab) 120 mg PO DAILY [facility] Last Admin: 12/08/17 09:35 Dose: 120 mg - Labs Labs: 12/07/17 06:12 12/07/17 06:12 PT 10.8 SECONDS (9.7-12.2) 12/04/17 09:38 INR 1.0 12/04/17 09:38 APTT 28 SECONDS (21-34) 12/04/17 09:38 Assessment and Plan (1) History of colostomy reversal Status: Acute (2) COPD exacerbation Status: Acute (3) BiPAP (biphasic positive airway pressure) dependence Status: Acute (4) Acute and chronic respiratory failure ([id number]) Status: Acute (5) Colostomy complication Status: Acute
[2017-12-08] MEDS: Fluticasone-Salmeterol 250-50mcg Diskus INH SCH ×2 (12:58→19:13)
[2017-12-08] MEDS ORDERED: Sodium Chloride 0.9% 500 ML IV ONE (14:14)
--- NOTE | 2017-12-08 14:56 | PN ---
DATE: SUBJECTIVE: The patient denies chest pain. He did not have any flatus or bowel movement yet. PHYSICAL EXAMINATION: VITAL SIGNS: Blood pressure 130/83, heart rate 120, temperature 98.4. HEENT: Normocephalic. CHEST: Bibasilar rhonchi. HEART: S1 and S2 regular. EXTREMITIES: No edema. LABORATORY DATA: Today's blood sugars are 107 and 143. ASSESSMENT: 1. Status post closure of ileostomy. 2. Physiologic sinus tachycardia. 3. Chronic obstructive lung disease. 4. Anxiety disorder. RECOMMENDATIONS: Case was discussed with the communications media professor. The patient can be maintained on verapamil at 120 mg daily beside bronchodilators, continue subcutaneous Lovenox at 40 mg once a day. The patient can be transferred to telemetry. I reviewed the postoperative EKG which revealed sinus tachycardia at the rate of 108, otherwise unremarkable. Mukesh Correia MD
--- NOTE | 2017-12-08 18:34 | CP.PCM.PN ---
Subjective - Date & Time of Evaluation Date of Evaluation: 12/08/17 Time of Evaluation: 17:25 - Subjective Subjective: patient seen and examined Sitting comfortably in no distress Sinus tachycardia No bowel movement Denies shortness of breath Afebrile Continue nebulizer treatment and Advair Objective - Vital Signs/Intake and Output Vital Signs (last 24 hours): Temp Pulse Resp BP Pulse Ox 98.0 F 133 H 20 113/77 100 12/08/17 16:00 12/08/17 16:00 12/08/17 16:00 12/08/17 16:00 12/08/17 16:00 Intake and Output: 12/08/17 12/08/17 06:59 18:59 Intake Total 350 1050 Output Total 400 650 Balance -50 400 - Medications Medications: Current Medications Albuterol/Ipratropium (Duoneb 3 Mg/0.5 Mg (3 Ml) Ud) 3 ml INH RQ6 [facility] Last Admin: 12/08/17 13:00 Dose: 3 ml Alprazolam (Xanax) 0.5 mg PO Q12H [facility] Last Admin: 12/08/17 09:34 Dose: 0.5 mg Enoxaparin Sodium (Lovenox) 40 mg SC DAILY [facility] Last Admin: 12/08/17 09:37 Dose: 40 mg Verapamil HCl 40 mg/ Sodium (Chloride) 100 mls @ 12.5 mls/hr IV .Q8H [facility]; 5 MG/ HR PRN Reason: Protocol Insulin Aspart (Novolog) 0 unit SC ACHS [facility] PRN Reason: Protocol Last Admin: 12/08/17 17:27 Dose: 2 unit Ketorolac Tromethamine (Toradol) 10 mg PO Q6 PRN PRN Reason: Pain, Mild (1-3) Last Admin: 12/08/17 13:36 Dose: 10 mg Montelukast Sodium (Singulair) 10 mg PO HS [facility] Last Admin: 12/07/17 22:48 Dose: 10 mg Morphine Sulfate (Morphine) 4 mg IVP Q4 PRN PRN Reason: Pain, severe (8-10) Last Admin: 12/08/17 11:09 Dose: 4 mg Multivitamins (Hexavitamin) 1 tab PO DAILY [facility] Last Admin: 12/08/17 09:34 Dose: 1 tab Oxycodone HCl (Oxycontin Extended Release Tab) 20 mg PO Q12 PRN PRN Reason: Pain, moderate (4-7) Last Admin: 12/08/17 09:35 Dose: 20 mg Pantoprazole Sodium (Protonix Ec Tab) 40 mg PO DAILY [facility] Last Admin: 12/08/17 09:35 Dose: 40 mg Roflumilast (Daliresp) 500 mcg PO DAILY [facility] Last Admin: 12/08/17 09:34 Dose: 500 mcg Fluticasone/Salmeterol (Advair Diskus 250/50) 1 puff INH RQ12 [facility] Last Admin: 12/08/17 12:58 Dose: Not Given Verapamil HCl (Calan Sr Tab) 240 mg PO DAILY [facility] - Labs Labs: 12/07/17 06:12 12/07/17 06:12 PT 10.8 SECONDS (9.7-12.2) 12/04/17 09:38 INR 1.0 12/04/17 09:38 APTT 28 SECONDS (21-34) 12/04/17 09:38
[2017-12-08] MEDS: Verapamil 40 MG in Sodium Chloride 0.9% 84 ML IV SCH (18:53)
[2017-12-08] MEDS ORDERED: Budesonide 0.25 mg/2 ml Inhal Susp UD INH SCH (20:00)
[2017-12-09] MEDS: Albuterol-Ipratrop 3 mg / 0.5 (3 ml) UD INH SCH ×4 (01:07→19:15)
[2017-12-09] MEDS: Verapamil 40 MG in Sodium Chloride 0.9% 84 ML IV SCH ×2 (03:07→12:03)
--- NOTE | 2017-12-09 06:19 | CP.PCM.PN ---
Subjective - Date & Time of Evaluation Date of Evaluation: 12/09/17 Time of Evaluation: 08:10 - Subjective Subjective: General surgery progress note for Dr. Barak Hanna, PGY-1 Pt S & E at bedside. Pt reports pain well controlled overnight. Denies N & V, F & C, tolerating CLD. Per nursing, pt ambulated yesterday. Objective - Vital Signs/Intake and Output Vital Signs (last 24 hours): Temp Pulse Resp BP Pulse Ox 98.3 F 119 H 10 L 119/86 95 12/09/17 00:00 12/09/17 04:00 12/09/17 04:00 12/09/17 03:31 12/09/17 04:00 Intake and Output: 12/08/17 12/09/17 18:59 06:59 Intake Total 1050 Output Total 650 Balance 400 - Medications Medications: Current Medications Albuterol/Ipratropium (Duoneb 3 Mg/0.5 Mg (3 Ml) Ud) 3 ml INH RQ6 [facility] Last Admin: 12/09/17 01:07 Dose: 3 ml Alprazolam (Xanax) 0.5 mg PO Q12H [facility] Last Admin: 12/08/17 21:45 Dose: 0.5 mg Enoxaparin Sodium (Lovenox) 40 mg SC DAILY [facility] Last Admin: 12/08/17 09:37 Dose: 40 mg Verapamil HCl 40 mg/ Sodium (Chloride) 100 mls @ 12.5 mls/hr IV .Q8H [facility]; 5 MG/ HR PRN Reason: Protocol Last Admin: 12/09/17 03:07 Dose: 12.5 mls/hr Insulin Aspart (Novolog) 0 unit SC ACHS [facility] PRN Reason: Protocol Last Admin: 12/08/17 21:32 Dose: Not Given Ketorolac Tromethamine (Toradol) 10 mg PO Q6 PRN PRN Reason: Pain, Mild (1-3) Last Admin: 12/08/17 13:36 Dose: 10 mg Montelukast Sodium (Singulair) 10 mg PO HS [facility] Last Admin: 12/08/17 21:45 Dose: 10 mg Morphine Sulfate (Morphine) 4 mg IVP Q4 PRN PRN Reason: Pain, severe (8-10) Last Admin: 04/28/18 22:56 Dose: 4 mg Multivitamins (Hexavitamin) 1 tab PO DAILY [facility] Last Admin: 12/08/17 09:34 Dose: 1 tab Oxycodone HCl (Oxycontin Extended Release Tab) 20 mg PO Q12 PRN PRN Reason: Pain, moderate (4-7) Last Admin: 12/08/17 21:45 Dose: 20 mg Pantoprazole Sodium (Protonix Ec Tab) 40 mg PO DAILY [facility] Last Admin: 12/08/17 09:35 Dose: 40 mg Roflumilast (Daliresp) 500 mcg PO DAILY [facility] Last Admin: 12/08/17 09:34 Dose: 500 mcg Fluticasone/Salmeterol (Advair Diskus 250/50) 1 puff INH RQ12 [facility] Last Admin: 12/08/17 19:13 Dose: 1 puff Verapamil HCl (Calan Sr Tab) 240 mg PO DAILY [facility] - Labs Labs: 12/07/17 06:12 12/07/17 06:12 PT 10.8 SECONDS (9.7-12.2) 12/04/17 09:38 INR 1.0 12/04/17 09:38 APTT 28 SECONDS (21-34) 12/04/17 09:38 - Constitutional Appears: Non-toxic, No Acute Distress - Head Exam Head Exam: ATRAUMATIC, NORMAL INSPECTION, NORMOCEPHALIC - Eye Exam Eye Exam: EOMI, Normal appearance - ENT Exam ENT Exam: Mucous Membranes Moist, Normal Exam - Neck Exam Neck Exam: Full ROM, Normal Inspection - Respiratory Exam Respiratory Exam: NORMAL BREATHING PATTERN - Cardiovascular Exam Cardiovascular Exam: Tachycardia, +S1, +S2 - GI/Abdominal Exam GI & Abdominal Exam: Soft, Tenderness (over surgical incision site). absent: Distended (obese), Firm, Guarding Additional comments: Dressing saturated- removed with salmon colored, sweet smelling drainage noted, new dressing replaced - Extremities Exam Extremities Exam: Normal Inspection - Neurological Exam Neurological Exam: Alert, Awake, CN II-XII Intact, Oriented x3 - Psychiatric Exam Psychiatric exam: Normal Affect, Normal Mood - Skin Skin Exam: Dry, Normal Color, Warm. absent: Intact Additional comments: Surgical incision site with gap Assessment and Plan - Assessment and Plan (Free Text) Assessment: 67M POD #3 s/p ileostomy reversal Plan: Pain control PRN- try to use PO pain meds Encouraged pt to drink liquids slowly Cont CLD for now Monitor for bowel function OOBTC Encourage IS use Ambulate FU wound culture DW attending Cyndi, PGY-1
[2017-12-09] MEDS: Budesonide 0.5 mg/2 ml Inhal Susp UD IH SCH (07:23)
[2017-12-09] MEDS: Fluticasone-Salmeterol 250-50mcg Diskus INH SCH ×2 (07:23→19:15)
[2017-12-09] MEDS: (Novolog) Insulin Aspart, Recombinant 100 u/ml 10 ml vial SC SCH ×4 (08:16→22:00)
[2017-12-09] MEDS ORDERED: Verapamil 240 mg ER Tab PO SCH (10:00)
[2017-12-09] MEDS: Pantoprazole 40 mg EC Tab PO SCH (10:02)
[2017-12-09] MEDS: Enoxaparin 40 mg Syringe SC SCH (10:02)
[2017-12-09] MEDS: Multiple Vitamins Tab PO SCH (10:04)
[2017-12-09 10:28] LABS: BASO # 0.1 K/uL (0.0-0.2); BASO % 0.6 % (0.0-2.0); EOS # 0.2 K/uL (0.0-0.7); EOS % 1.1 % (0.0-4.0); LYMPH # 0.9 K/uL (1.0-4.3); LYMPH % 6.4 % (20.0-40.0); MEAN CELL VOLUME 70.8 fL (80.0-94.0); MEAN CORPUSCULAR HEMOGLOBIN 23.5 pg (27.0-31.0); MEAN CORPUSCULAR HGB CONC 33.2 g/dL (33.0-37.0); MEAN PLATELET VOLUME 8.2 fL (7.2-11.7); MONO # 0.7 K/uL (0.0-0.8); MONO % 4.9 % (0.0-10.0); NEUT # 12.5 K/uL (1.8-7.0); PLATELET COUNT 261 K/uL (130-400); RBC 4.66 Mil/uL (4.40-5.90); RED CELL DISTRIBUTION WIDTH 18.4 % (11.5-14.5); WHITE BLOOD COUNT 14.4 K/uL (4.8-10.8)
[2017-12-09 10:39] LABS: BLOOD UREA NITROGEN 8 mg/dL (9-20); GFR AFRICAN-AMERICAN > 60; GFR NON-AFRICAN AMERICAN > 60
[2017-12-09 10:52] LABS: BANDS 1 % (0-2); EOSINOPHIL 1 % (0-4); LYMPHOCYTE 8 % (20-40); MONOCYTE 4 % (0-10); NEUTROPHIL 86 % (50-75); TOTAL CELLS COUNTED 100
[2017-12-09 10:53] LABS: ANISOCYTOSIS SLIGHT; HYPOCHROMIC SLIGHT; MICROCYTOSIS SLIGHT; PLATELET ESTIMATE NORMAL (NORMAL); POIKILOCYTOSIS SLIGHT
[2017-12-09 10:54] LABS: OVALOCYTES SLIGHT; POLYCHROMIC SLIGHT; SPHEROCYTES SLIGHT; TEARDROP CELLS SLIGHT
[2017-12-09] MEDS: oxyCODONE 5 mg Immediate Release Tab PO PRN (12:27)
[2017-12-09] MEDS: Potassium Chloride 20 mEq ER Tab PO SCH (12:56)
--- NOTE | 2017-12-10 01:05 | CP.PCM.PN ---
Subjective - Date & Time of Evaluation Date of Evaluation: 12/09/17 Time of Evaluation: 18:00 - Subjective Subjective: Pt S & E at bedside. Pt reports pain well controlled overnight. Denies N & V, F & C, tolerating CLD. Per nursing, pt ambulated yesterday. Objective - Vital Signs/Intake and Output Vital Signs (last 24 hours): Temp Pulse Resp BP Pulse Ox 98.8 F 116 H 17 106/71 96 12/09/17 20:00 12/09/17 20:00 12/09/17 20:00 12/09/17 20:00 12/09/17 20:00 Intake and Output: 12/09/17 12/10/17 18:59 06:59 Intake Total 575 250 Output Total 500 0 Balance 75 250 - Medications Medications: Current Medications Albuterol/Ipratropium (Duoneb 3 Mg/0.5 Mg (3 Ml) Ud) 3 ml INH RQ6 [facility] Last Admin: 12/09/17 19:15 Dose: 3 ml Alprazolam (Xanax) 0.5 mg PO Q12H [facility] Last Admin: 12/09/17 21:59 Dose: 0.5 mg Diltiazem HCl (Cardizem) 90 mg PO TID [facility] Last Admin: 12/09/17 17:07 Dose: 90 mg Enoxaparin Sodium (Lovenox) 40 mg SC DAILY [facility] Last Admin: 12/09/17 10:02 Dose: 40 mg Insulin Aspart (Novolog) 0 unit SC ACHS [facility] PRN Reason: Protocol Last Admin: 12/09/17 22:00 Dose: Not Given Ketorolac Tromethamine (Toradol) 10 mg PO Q6 PRN PRN Reason: Pain, Mild (1-3) Last Admin: 12/09/17 10:01 Dose: 10 mg Montelukast Sodium (Singulair) 10 mg PO HS [facility] Last Admin: 12/09/17 21:59 Dose: 10 mg Morphine Sulfate (Morphine) 4 mg IVP Q4 PRN PRN Reason: Pain, severe (8-10) Last Admin: 12/09/17 17:07 Dose: 4 mg Multivitamins (Hexavitamin) 1 tab PO DAILY [facility] Last Admin: 12/09/17 10:04 Dose: 1 tab Oxycodone HCl (Oxycodone Immediate Release Tab) 5 mg PO Q6 PRN PRN Reason: Pain, moderate (4-7) Last Admin: 12/09/17 12:27 Dose: 5 mg Pantoprazole Sodium (Protonix Ec Tab) 40 mg PO DAILY [facility] Last Admin: 12/09/17 10:02 Dose: 40 mg Potassium Chloride (K-Dur 20 Meq Er Tab) 40 meq PO DAILY [facility] Last Admin: 12/09/17 12:56 Dose: 40 meq Roflumilast (Daliresp) 500 mcg PO DAILY [facility] Last Admin: 12/09/17 10:02 Dose: 500 mcg Fluticasone/Salmeterol (Advair Diskus 250/50) 1 puff INH RQ12 [facility] Last Admin: 12/09/17 19:15 Dose: 1 puff - Labs Labs: 12/09/17 10:20 12/09/17 10:20 PT 10.8 SECONDS (9.7-12.2) 12/04/17 09:38 INR 1.0 12/04/17 09:38 APTT 28 SECONDS (21-34) 12/04/17 09:38 Assessment and Plan (1) History of colostomy reversal Status: Acute (2) COPD exacerbation Status: Acute (3) BiPAP (biphasic positive airway pressure) dependence Status: Acute (4) Acute and chronic respiratory failure ([id number]) Status: Acute (5) Colostomy complication Status: Acute
[2017-12-10] MEDS: Albuterol-Ipratrop 3 mg / 0.5 (3 ml) UD INH SCH ×4 (01:10→20:29)
[2017-12-10] MEDS: oxyCODONE 5 mg Immediate Release Tab PO PRN (04:35)
[2017-12-10 06:35] LABS: BASO # 0.1 K/uL (0.0-0.2); BASO % 0.5 % (0.0-2.0); EOS # 0.1 K/uL (0.0-0.7); EOS % 0.8 % (0.0-4.0); HEMOGLOBIN 10.3 g/dL (12.0-18.0); LYMPH % 7.6 % (20.0-40.0); MEAN CELL VOLUME 71.1 fL (80.0-94.0); MEAN CORPUSCULAR HEMOGLOBIN 23.1 pg (27.0-31.0); MEAN CORPUSCULAR HGB CONC 32.4 g/dL (33.0-37.0); MEAN PLATELET VOLUME 8.5 fL (7.2-11.7); MONO # 0.9 K/uL (0.0-0.8); MONO % 6.2 % (0.0-10.0); NEUT # 11.6 K/uL (1.8-7.0); NEUT % 84.9 % (50.0-75.0); NRBC % 0.1 % (0.0-2.0); PLATELET COUNT 262 K/uL (130-400); RBC 4.46 Mil/uL (4.40-5.90); RED CELL DISTRIBUTION WIDTH 18.2 % (11.5-14.5); WHITE BLOOD COUNT 13.7 K/uL (4.8-10.8)
[2017-12-10 06:51] LABS: BLOOD UREA NITROGEN 7 mg/dL (9-20); CALCIUM 8.2 mg/dl (8.6-10.4); GFR AFRICAN-AMERICAN > 60; GFR NON-AFRICAN AMERICAN > 60
--- NOTE | 2017-12-10 06:55 | PN ---
DATE: 12/09/2017 SUBJECTIVE: The patient did not move his bowel yet, but had flatus. He is still in sinus tachycardia in the 120s. He denies any chest pain. PHYSICAL EXAMINATION VITAL SIGNS: Blood pressure 112/87, heart rate 124, temperature 98.2, respirations 18. HEENT: Normocephalic. CHEST: No rales, no rhonchi. HEART: S1 and S2, regular. EXTREMITIES: No edema. LABORATORY DATA: Hemoglobin and hematocrit at 11 and 33. White count 14.4, platelet count 261,000. SMA-7: Sodium 141, potassium 3.1, chloride 101, CO2 of 32, glucose 151, BUN 8, creatinine 0.6. ASSESSMENT: 1. Status post closure of ileostomy. 2. Chronic obstructive lung disease. 3. Sinus tachycardia which is physiologic. 4. Hypokalemia. 5. Uncontrolled diabetes mellitus. RECOMMENDATIONS: The patient did receive K-Dur 40 mEq p.o. today, start K-Dur at 20 mEq orally daily. On top of that, discontinue and start Cardizem at 90 mg every 8 hours. Mukesh Correia MD
[2017-12-10] MEDS: Fluticasone-Salmeterol 250-50mcg Diskus INH SCH ×2 (07:18→20:33)
[2017-12-10] MEDS: (Novolog) Insulin Aspart, Recombinant 100 u/ml 10 ml vial SC SCH ×4 (07:30→22:00)
[2017-12-10 08:15] LABS: ANISOCYTOSIS SLIGHT; BANDS 5 % (0-2); EOSINOPHIL 1 % (0-4); HYPOCHROMIC SLIGHT; LYMPHOCYTE 6 % (20-40); MONOCYTE 5 % (0-10); NEUTROPHIL 83 % (50-75); OVALOCYTES SLIGHT; PLATELET ESTIMATE NORMAL (NORMAL); POLYCHROMIC SLIGHT; TOTAL CELLS COUNTED 100
[2017-12-10 08:16] LABS: MICROCYTOSIS MODERATE
[2017-12-10] MEDS: Enoxaparin 40 mg Syringe SC SCH (10:25)
[2017-12-10] MEDS: Potassium Chloride 20 mEq ER Tab PO SCH (10:27)
[2017-12-10] MEDS: Pantoprazole 40 mg EC Tab PO SCH (10:27)
[2017-12-10] MEDS: Multiple Vitamins Tab PO SCH (10:27)
[2017-12-10] MEDS ORDERED: Potassium Phosphate 15 MMOLE in Dextrose 5% In Water 250 ML IVPB ONE (11:20)
--- NOTE | 2017-12-10 13:31 | CP.PCM.PN ---
Subjective - Date & Time of Evaluation Date of Evaluation: 12/10/17 Time of Evaluation: 08:00 - Subjective Subjective: Surgery: Dr. Nieto Pt seen and examined. No acute overnight events. Pt still having post-op pain around incision site. States he is tolerating liquids and denies any N/V. Admits to flatus but denies BM. Denies F/C. Objective - Vital Signs/Intake and Output Vital Signs (last 24 hours): Temp Pulse Resp BP Pulse Ox 97.5 F L 118 H 20 140/74 100 12/10/17 12:00 12/10/17 12:00 12/10/17 12:00 12/10/17 12:00 12/10/17 12:00 Intake and Output: 12/10/17 12/10/17 06:59 18:59 Intake Total 375 Output Total 400 Balance -25 - Medications Medications: Current Medications Albuterol/Ipratropium (Duoneb 3 Mg/0.5 Mg (3 Ml) Ud) 3 ml INH RQ6 [facility] Last Admin: 12/10/17 13:20 Dose: 3 ml Alprazolam (Xanax) 0.5 mg PO Q12H [facility] Last Admin: 12/10/17 10:26 Dose: 0.5 mg Diltiazem HCl (Cardizem) 90 mg PO TID [facility] Last Admin: 12/10/17 10:26 Dose: 90 mg Enoxaparin Sodium (Lovenox) 40 mg SC DAILY [facility] Last Admin: 12/10/17 10:25 Dose: 40 mg Potassium Phosphate 15 mmole/ (Dextrose) 255 mls @ 42.5 mls/hr IVPB ONCE ONE Stop: 12/10/17 17:19 Last Admin: 12/10/17 12:00 Dose: 42.5 mls/hr Insulin Aspart (Novolog) 0 unit SC ACHS [facility] PRN Reason: Protocol Last Admin: 12/10/17 12:05 Dose: Not Given Ketorolac Tromethamine (Toradol) 10 mg PO Q6 PRN PRN Reason: Pain, Mild (1-3) Last Admin: 12/09/17 10:01 Dose: 10 mg Montelukast Sodium (Singulair) 10 mg PO HS [facility] Last Admin: 12/09/17 21:59 Dose: 10 mg Morphine Sulfate (Morphine) 4 mg IVP Q4 PRN PRN Reason: Pain, severe (8-10) Last Admin: 12/10/17 10:20 Dose: 4 mg Multivitamins (Hexavitamin) 1 tab PO DAILY [facility] Last Admin: 12/10/17 10:27 Dose: 1 tab Oxycodone HCl (Oxycodone Immediate Release Tab) 5 mg PO Q6 PRN PRN Reason: Pain, moderate (4-7) Last Admin: 12/10/17 04:35 Dose: 5 mg Pantoprazole Sodium (Protonix Ec Tab) 40 mg PO DAILY [facility] Last Admin: 12/10/17 10:27 Dose: 40 mg Potassium Chloride (K-Dur 20 Meq Er Tab) 40 meq PO DAILY [facility] Last Admin: 12/10/17 10:27 Dose: 40 meq Roflumilast (Daliresp) 500 mcg PO DAILY [facility] Last Admin: 12/10/17 10:26 Dose: 500 mcg Fluticasone/Salmeterol (Advair Diskus 250/50) 1 puff INH RQ12 [facility] Last Admin: 12/10/17 07:18 Dose: 1 puff - Labs Labs: 12/10/17 06:20 12/10/17 06:20 PT 10.8 SECONDS (9.7-12.2) 12/04/17 09:38 INR 1.0 12/04/17 09:38 APTT 28 SECONDS (21-34) 12/04/17 09:38 - Constitutional Appears: No Acute Distress - Head Exam Head Exam: ATRAUMATIC, NORMOCEPHALIC - ENT Exam ENT Exam: Mucous Membranes Moist - Respiratory Exam Respiratory Exam: NORMAL BREATHING PATTERN - Cardiovascular Exam Cardiovascular Exam: Tachycardia - GI/Abdominal Exam GI & Abdominal Exam: Distended, Soft, Tenderness (around incision site, kiran in place ) - Neurological Exam Neurological Exam: Alert, Awake, Oriented x3 - Skin Skin Exam: Dry, Warm Assessment and Plan - Assessment and Plan (Free Text) Assessment: 67M s/p loop ileostomy reversal; POD#4 Plan: - continue liquids for now since pt still distended and denies BM - may need NGT if he starts to vomit - encourage ambulation - d/w Dr. Emilia Martines, PGY-3
--- NOTE | 2017-12-10 15:26 | RAD ---
HISTORY: flat and upright please, ab distention COMPARISON: No prior. FINDINGS: BOWEL: Colonic and gastric distension. No evidence of mechanical obstruction. BONES: Normal. OTHER FINDINGS: None. IMPRESSION: Distended colon and stomach etiology, significance uncertain.
--- NOTE | 2017-12-10 16:44 | CP.PCM.PN ---
Subjective - Date & Time of Evaluation Date of Evaluation: 12/10/17 Time of Evaluation: 10:50 - Subjective Subjective: The patient was seen and examined at bedside resting comfortably but notably tachycardic. The patient is POD #4 ileosteomy revision. Denies shortness of breath. He notes that he still has not had a bowel movement but is still passing gas. Will adjust BiPAP settings to patient's normal levels 07/18. 1. Acute COPD exacerbation, resolved - Saturating 97-100% on 3L NC - BiPAP settings to 07/18 - CXR 12/04: bibasilar atelectasis - CBC 12/10: WBC 13.7, trending down - ABG 12/04: 7.40/45/126/27 - duonebs - solumedrol 2. Post-operative respiratory complication prophylaxis Objective - Vital Signs/Intake and Output Vital Signs (last 24 hours): Temp Pulse Resp BP Pulse Ox 97.5 F L 118 H 20 140/74 100 12/10/17 12:00 12/10/17 12:00 12/10/17 12:00 12/10/17 12:00 12/10/17 12:00 Intake and Output: 12/10/17 12/10/17 06:59 18:59 Intake Total 375 Output Total 400 Balance -25 - Medications Medications: Current Medications Albuterol/Ipratropium (Duoneb 3 Mg/0.5 Mg (3 Ml) Ud) 3 ml INH RQ6 [facility] Last Admin: 12/10/17 13:20 Dose: 3 ml Alprazolam (Xanax) 0.5 mg PO Q12H [facility] Last Admin: 12/10/17 10:26 Dose: 0.5 mg Diltiazem HCl (Cardizem) 90 mg PO TID [facility] Last Admin: 12/10/17 10:26 Dose: 90 mg Enoxaparin Sodium (Lovenox) 40 mg SC DAILY [facility] Last Admin: 12/10/17 10:25 Dose: 40 mg Potassium Phosphate 15 mmole/ (Dextrose) 255 mls @ 42.5 mls/hr IVPB ONCE ONE Stop: 12/10/17 17:19 Last Admin: 12/10/17 12:00 Dose: 42.5 mls/hr Insulin Aspart (Novolog) 0 unit SC ACHS [facility] PRN Reason: Protocol Last Admin: 12/10/17 12:05 Dose: Not Given Ketorolac Tromethamine (Toradol) 10 mg PO Q6 PRN PRN Reason: Pain, Mild (1-3) Last Admin: 12/09/17 10:01 Dose: 10 mg Montelukast Sodium (Singulair) 10 mg PO HS [facility] Last Admin: 12/09/17 21:59 Dose: 10 mg Morphine Sulfate (Morphine) 4 mg IVP Q4 PRN PRN Reason: Pain, severe (8-10) Last Admin: 12/10/17 10:20 Dose: 4 mg Multivitamins (Hexavitamin) 1 tab PO DAILY [facility] Last Admin: 12/10/17 10:27 Dose: 1 tab Oxycodone HCl (Oxycodone Immediate Release Tab) 5 mg PO Q6 PRN PRN Reason: Pain, moderate (4-7) Last Admin: 12/10/17 04:35 Dose: 5 mg Pantoprazole Sodium (Protonix Ec Tab) 40 mg PO DAILY [facility] Last Admin: 12/10/17 10:27 Dose: 40 mg Potassium Chloride (K-Dur 20 Meq Er Tab) 40 meq PO DAILY [facility] Last Admin: 12/10/17 10:27 Dose: 40 meq Roflumilast (Daliresp) 500 mcg PO DAILY [facility] Last Admin: 12/10/17 10:26 Dose: 500 mcg Fluticasone/Salmeterol (Advair Diskus 250/50) 1 puff INH RQ12 [facility] Last Admin: 12/10/17 07:18 Dose: 1 puff - Labs Labs: 12/10/17 06:20 12/10/17 06:20 PT 10.8 SECONDS (9.7-12.2) 12/04/17 09:38 INR 1.0 12/04/17 09:38 APTT 28 SECONDS (21-34) 12/04/17 09:38
--- NOTE | 2017-12-10 20:17 | PN ---
DATE: SUBJECTIVE: The patient is still tachycardic. He denies any chest pain. PHYSICAL EXAMINATION: VITAL SIGNS: Blood pressure 140/74, heart rate 118, temperature 97.5, respirations 20. HEENT: Normocephalic. CHEST: Minimal rhonchi. HEART: S1 and S2, regular. ABDOMEN: Mildly distended. EXTREMITIES: No edema. LABORATORY DATA: Hemoglobin and hematocrit 10.3 and 31.7, white count 15.7, platelet count 262,000. SMA-7 is within normal limits except for glucose 156, BUN and creatinine are 7 and 0.5. Abdominal x-ray reviewed, colon and stomach. ASSESSMENT: 1. Status post closure of ileostomy. 2. Ileus. 3. Chronic obstructive lung disease. 4. Uncontrolled diabetes mellitus. RECOMMENDATIONS: Continue current Advair, continue oral Cardizem at 90 mg t.i.d., K-Dur 20 mEq orally once a day, Lovenox at 20 mg subcutaneously once a day, Protonix 40 mg p.o once a day, Toradol 10 mg p.o. every 6 hours p.r.n. I will obtain a bedside echocardiogram as well as 12-lead EKG. Mukesh Correia MD
--- NOTE | 2017-12-10 23:34 | CP.PCM.PN ---
Subjective - Date & Time of Evaluation Date of Evaluation: 12/10/17 Time of Evaluation: 19:00 - Subjective Subjective: Pt seen and examined at bedside pt is feeling better, he is having bowel movement,less tacypneac, no fever, chills Objective - Vital Signs/Intake and Output Vital Signs (last 24 hours): Temp Pulse Resp BP Pulse Ox 99.4 F 109 H 18 137/83 97 12/10/17 20:00 12/10/17 22:39 12/10/17 20:00 12/10/17 20:00 12/10/17 20:00 Intake and Output: 12/10/17 12/11/17 18:59 06:59 Intake Total 3420 Output Total 1500 Balance 1920 - Medications Medications: Current Medications Albuterol/Ipratropium (Duoneb 3 Mg/0.5 Mg (3 Ml) Ud) 3 ml INH RQ6 [facility] Last Admin: 12/10/17 20:29 Dose: 3 ml Alprazolam (Xanax) 0.5 mg PO Q12H [facility] Last Admin: 12/10/17 21:25 Dose: 0.5 mg Diltiazem HCl (Cardizem) 90 mg PO TID [facility] Last Admin: 12/10/17 18:00 Dose: 90 mg Enoxaparin Sodium (Lovenox) 40 mg SC DAILY [facility] Last Admin: 12/10/17 10:25 Dose: 40 mg Insulin Aspart (Novolog) 0 unit SC ACHS [facility] PRN Reason: Protocol Last Admin: 12/10/17 22:00 Dose: Not Given Ketorolac Tromethamine (Toradol) 10 mg PO Q6 PRN PRN Reason: Pain, Mild (1-3) Last Admin: 12/09/17 10:01 Dose: 10 mg Montelukast Sodium (Singulair) 10 mg PO HS [facility] Last Admin: 12/10/17 21:25 Dose: 10 mg Morphine Sulfate (Morphine) 4 mg IVP Q4 PRN PRN Reason: Pain, severe (8-10) Last Admin: 12/10/17 21:30 Dose: 4 mg Multivitamins (Hexavitamin) 1 tab PO DAILY [facility] Last Admin: 12/10/17 10:27 Dose: 1 tab Oxycodone HCl (Oxycodone Immediate Release Tab) 5 mg PO Q6 PRN PRN Reason: Pain, moderate (4-7) Last Admin: 12/10/17 04:35 Dose: 5 mg Pantoprazole Sodium (Protonix Ec Tab) 40 mg PO DAILY [facility] Last Admin: 12/10/17 10:27 Dose: 40 mg Potassium Chloride (K-Dur 20 Meq Er Tab) 40 meq PO DAILY [facility] Last Admin: 12/10/17 10:27 Dose: 40 meq Roflumilast (Daliresp) 500 mcg PO DAILY [facility] Last Admin: 12/10/17 10:26 Dose: 500 mcg Fluticasone/Salmeterol (Advair Diskus 250/50) 1 puff INH RQ12 [facility] Last Admin: 12/10/17 20:33 Dose: Not Given - Labs Labs: 12/10/17 06:20 12/10/17 06:20 PT 10.8 SECONDS (9.7-12.2) 12/04/17 09:38 INR 1.0 12/04/17 09:38 APTT 28 SECONDS (21-34) 12/04/17 09:38 - Constitutional Appears: No Acute Distress - Head Exam Head Exam: ATRAUMATIC, NORMAL INSPECTION, NORMOCEPHALIC - Eye Exam Eye Exam: EOMI, Normal appearance, PERRL Pupil Exam: NORMAL ACCOMODATION, PERRL - Respiratory Exam Respiratory Exam: Decreased Breath Sounds, Rales, Rhonchi - Cardiovascular Exam Cardiovascular Exam: REGULAR RHYTHM, +S1, +S2. absent: Murmur Assessment and Plan (1) History of colostomy reversal Assessment & Plan: medical managment post op care Status: Acute (2) COPD exacerbation Status: Acute (3) BiPAP (biphasic positive airway pressure) dependence Status: Acute (4) Acute and chronic respiratory failure ([id number]) Status: Acute (5) Colostomy complication Status: Acute
[2017-12-11] MEDS: Albuterol-Ipratrop 3 mg / 0.5 (3 ml) UD INH SCH ×4 (01:36→20:08)
[2017-12-11 06:52] LABS: BASO # 0.1 K/uL (0.0-0.2); BASO % 0.5 % (0.0-2.0); EOS # 0.1 K/uL (0.0-0.7); EOS % 1.1 % (0.0-4.0); HEMOGLOBIN 10.5 g/dL (12.0-18.0); LYMPH # 1.2 K/uL (1.0-4.3); LYMPH % 8.8 % (20.0-40.0); MEAN CELL VOLUME 70.8 fL (80.0-94.0); MEAN CORPUSCULAR HEMOGLOBIN 23.3 pg (27.0-31.0); MEAN CORPUSCULAR HGB CONC 32.9 g/dL (33.0-37.0); MEAN PLATELET VOLUME 8.5 fL (7.2-11.7); MONO # 1.2 K/uL (0.0-0.8); MONO % 9.1 % (0.0-10.0); NEUT # 10.6 K/uL (1.8-7.0); NEUT % 80.5 % (50.0-75.0); PLATELET COUNT 278 K/uL (130-400); RBC 4.51 Mil/uL (4.40-5.90); WHITE BLOOD COUNT 13.2 K/uL (4.8-10.8)
[2017-12-11 07:00] LABS: ALB/GLOB RATIO 1.1 (1.0-2.1); ALBUMIN 3.1 g/dL (3.5-5.0); ALT/SGPT 35 U/L (21-72); AST/SGOT 25 U/L (17-59); BLOOD UREA NITROGEN 7 mg/dL (9-20); CALCIUM 8.2 mg/dl (8.6-10.4); GFR AFRICAN-AMERICAN > 60; GFR NON-AFRICAN AMERICAN > 60
[2017-12-11] MEDS: Fluticasone-Salmeterol 250-50mcg Diskus INH SCH ×2 (07:19→20:08)
[2017-12-11] MEDS: (Novolog) Insulin Aspart, Recombinant 100 u/ml 10 ml vial SC SCH ×4 (08:00→22:00)
[2017-12-11 08:24] LABS: ANISOCYTOSIS SLIGHT; BANDS 6 % (0-2); HYPOCHROMIC SLIGHT; LYMPHOCYTE 2 % (20-40); MONOCYTE 6 % (0-10); NEUTROPHIL 86 % (50-75); PLATELET ESTIMATE NORMAL (NORMAL); TOTAL CELLS COUNTED 100
[2017-12-11 08:25] LABS: MICROCYTOSIS SLIGHT; POLYCHROMIC SLIGHT; SCHISTOCYTES SLIGHT
--- NOTE | 2017-12-11 08:58 | CP.PCM.PN ---
Subjective - Date & Time of Evaluation Date of Evaluation: 12/11/17 Time of Evaluation: 08:55 - Subjective Subjective: Surgery: Dr. Nieto Patient reports bowel movement last night, multiple times. He reports passing flatus. Tolerating liquid diet. Denies n/v/f/c. Denies SOB. Objective - Vital Signs/Intake and Output Vital Signs (last 24 hours): Temp Pulse Resp BP Pulse Ox 98.4 F 110 H 16 129/82 98 12/11/17 08:00 12/11/17 08:00 12/11/17 08:00 12/11/17 08:00 12/11/17 08:00 Intake and Output: 12/11/17 12/11/17 06:59 18:59 Intake Total 240 20 Output Total 250 Balance -10 20 - Medications Medications: Current Medications Albuterol/Ipratropium (Duoneb 3 Mg/0.5 Mg (3 Ml) Ud) 3 ml INH RQ6 [facility] Last Admin: 12/11/17 07:19 Dose: 3 ml Alprazolam (Xanax) 0.5 mg PO Q12H [facility] Last Admin: 12/11/17 08:09 Dose: 0.5 mg Diltiazem HCl (Cardizem) 90 mg PO TID [facility] Last Admin: 12/10/17 18:00 Dose: 90 mg Enoxaparin Sodium (Lovenox) 40 mg SC DAILY [facility] Last Admin: 12/10/17 10:25 Dose: 40 mg Insulin Aspart (Novolog) 0 unit SC ACHS [facility] PRN Reason: Protocol Last Admin: 12/11/17 08:00 Dose: Not Given Ketorolac Tromethamine (Toradol) 10 mg PO Q6 PRN PRN Reason: Pain, Mild (1-3) Last Admin: 12/09/17 10:01 Dose: 10 mg Montelukast Sodium (Singulair) 10 mg PO HS [facility] Last Admin: 12/10/17 21:25 Dose: 10 mg Morphine Sulfate (Morphine) 4 mg IVP Q4 PRN PRN Reason: Pain, severe (8-10) Last Admin: 12/11/17 05:55 Dose: 4 mg Multivitamins (Hexavitamin) 1 tab PO DAILY [facility] Last Admin: 12/10/17 10:27 Dose: 1 tab Oxycodone HCl (Oxycodone Immediate Release Tab) 5 mg PO Q6 PRN PRN Reason: Pain, moderate (4-7) Last Admin: 12/10/17 04:35 Dose: 5 mg Pantoprazole Sodium (Protonix Ec Tab) 40 mg PO DAILY [facility] Last Admin: 12/10/17 10:27 Dose: 40 mg Potassium Chloride (K-Dur 20 Meq Er Tab) 40 meq PO DAILY [facility] Last Admin: 12/10/17 10:27 Dose: 40 meq Roflumilast (Daliresp) 500 mcg PO DAILY [facility] Last Admin: 12/10/17 10:26 Dose: 500 mcg Fluticasone/Salmeterol (Advair Diskus 250/50) 1 puff INH RQ12 [facility] Last Admin: 12/11/17 07:19 Dose: 1 puff - Labs Labs: 12/11/17 06:44 12/11/17 06:41 PT 10.8 SECONDS (9.7-12.2) 12/04/17 09:38 INR 1.0 12/04/17 09:38 APTT 28 SECONDS (21-34) 12/04/17 09:38 - Constitutional Appears: No Acute Distress, Chronically Ill - Head Exam Head Exam: ATRAUMATIC, NORMOCEPHALIC - Eye Exam Eye Exam: Normal appearance - ENT Exam ENT Exam: Mucous Membranes Moist - Respiratory Exam Respiratory Exam: absent: Respiratory Distress - Cardiovascular Exam Cardiovascular Exam: REGULAR RHYTHM. absent: Tachycardia - GI/Abdominal Exam GI & Abdominal Exam: Distended, Soft. absent: Guarding, Tenderness, Rebound Additional comments: Right lower quadrant incision opened and drainage seropurulent blood tinged fluid. Clean dry dressing replaced. - Neurological Exam Neurological Exam: Alert, Awake - Skin Skin Exam: Normal Color, Warm Assessment and Plan - Assessment and Plan (Free Text) Assessment: 67 yo male s/p ileostomy reversal POD5 Plan: -bowel function returned, ADAT -OOB to chair and ambulating frequently -dressing changes as need, clean dry gauze -medical management per primary -seen and examined with Dr. Emilia Lai PGY3
[2017-12-11] MEDS: Multiple Vitamins Tab PO SCH (09:31)
[2017-12-11] MEDS: Enoxaparin 40 mg Syringe SC SCH (09:31)
[2017-12-11] MEDS: Potassium Chloride 20 mEq ER Tab PO SCH (09:31)
[2017-12-11] MEDS: Pantoprazole 40 mg EC Tab PO SCH (09:32)
[2017-12-11] MEDS: oxyCODONE 5 mg Immediate Release Tab PO PRN (10:38)
--- NOTE | 2017-12-11 15:18 | CARD ---
APPROVED REPORT EKG Measurement Heart [id number] 126P [id number] <Conclusion> Sinus tachycardia Otherwise normal ECG
--- NOTE | 2017-12-11 16:40 | CP.PCM.PN ---
Subjective - Date & Time of Evaluation Date of Evaluation: 12/11/17 Time of Evaluation: 16:00 - Subjective Subjective: Pt seen and examined at bedside Objective - Vital Signs/Intake and Output Vital Signs (last 24 hours): Temp Pulse Resp BP Pulse Ox 98.9 F 121 H 15 126/80 96 12/11/17 16:00 12/11/17 16:00 12/11/17 16:00 12/11/17 16:00 12/11/17 16:00 Intake and Output: 12/11/17 12/11/17 06:59 18:59 Intake Total 240 20 Output Total 250 Balance -10 20 - Medications Medications: Current Medications Albuterol/Ipratropium (Duoneb 3 Mg/0.5 Mg (3 Ml) Ud) 3 ml INH RQ6 [facility] Last Admin: 12/11/17 13:11 Dose: 3 ml Alprazolam (Xanax) 0.5 mg PO Q12H [facility] Last Admin: 12/11/17 08:09 Dose: 0.5 mg Diltiazem HCl (Cardizem) 90 mg PO TID [facility] Last Admin: 12/11/17 13:42 Dose: 90 mg Enoxaparin Sodium (Lovenox) 40 mg SC DAILY [facility] Last Admin: 12/11/17 09:31 Dose: 40 mg Insulin Aspart (Novolog) 0 unit SC [facility] PRN Reason: Protocol Last Admin: 12/11/17 16:26 Dose: Not Given Ketorolac Tromethamine (Toradol) 10 mg PO Q6 PRN PRN Reason: Pain, Mild (1-3) Last Admin: 12/09/17 10:01 Dose: 10 mg Montelukast Sodium (Singulair) 10 mg PO [facility] Last Admin: 12/10/17 21:25 Dose: 10 mg Morphine Sulfate (Morphine) 4 mg IVP Q4 PRN PRN Reason: Pain, severe (8-10) Last Admin: 12/11/17 16:03 Dose: 4 mg Multivitamins (Hexavitamin) 1 tab PO DAILY [facility] Last Admin: 12/11/17 09:31 Dose: 1 tab Oxycodone HCl (Oxycodone Immediate Release Tab) 5 mg PO Q6 PRN PRN Reason: Pain, moderate (4-7) Last Admin: 12/11/17 10:38 Dose: 5 mg Pantoprazole Sodium (Protonix Ec Tab) 40 mg PO DAILY [facility] Last Admin: 12/11/17 09:32 Dose: 40 mg Potassium Chloride (K-Dur 20 Meq Er Tab) 40 meq PO DAILY [facility] Last Admin: 12/11/17 09:31 Dose: 40 meq Roflumilast (Daliresp) 500 mcg PO DAILY [facility] Last Admin: 12/11/17 09:31 Dose: 500 mcg Fluticasone/Salmeterol (Advair Diskus 250/50) 1 puff INH RQ12 [facility] Last Admin: 12/11/17 07:19 Dose: 1 puff - Labs Labs: 12/11/17 06:44 12/11/17 06:41 PT 10.8 SECONDS (9.7-12.2) 12/04/17 09:38 INR 1.0 12/04/17 09:38 APTT 28 SECONDS (21-34) 12/04/17 09:38 Assessment and Plan (1) History of colostomy reversal Status: Acute (2) COPD exacerbation Status: Acute (3) BiPAP (biphasic positive airway pressure) dependence Status: Acute (4) Acute and chronic respiratory failure ([id number]) Status: Acute (5) Colostomy complication Status: Acute
--- NOTE | 2017-12-11 18:00 | PN ---
DATE: 12/11/2017 SUBJECTIVE: The patient is drowsy but awake, oriented, and he had bowel movement. He is still in sinus tachycardia. PHYSICAL EXAMINATION: VITAL SIGNS: Blood pressure 122/78, heart rate 119, temperature 98.5, respirations 17. HEENT: Normocephalic. CHEST: Minimal rhonchi. HEART: S1 and S2, regular. EXTREMITIES: No edema. LABORATORY DATA: SMA-7 within normal limits except for glucose of 141. BUN and creatinine of 7 and 0.5 respectively. Today's hemoglobin and hematocrit at 10.5 and 32, white count 15.2, platelet count is within normal limits. Yesterday's EKG reveals sinus tachycardia at the rate of 115, otherwise normal EKG. Brief review of the bedside 2D echocardiographic study revealed normal left ventricular and right ventricular systolic function. ASSESSMENT: 1. Status post closure of ileostomy. 2. Chronic obstructive lung disease. 3. Sinus tachycardia. 4. Mild anemia. 5. Uncontrolled diabetes mellitus. RECOMMENDATIONS: Continue current Advair, continue Cardizem at 90 mg t.i.d., K-Dur 40 mEq daily, Lovenox at 20 mg subcutaneously daily, Protonix 40 mg once a day, Toradol 10 mg p.o. every 6 hours p.r.n, and Xanax 0.5 mg orally twice a day. Mukesh Correia MD
--- NOTE | 2017-12-11 18:57 | CARD ---
APPROVED REPORT EXAM: Two-dimensional and M-mode echocardiogram with Doppler and color Doppler. Other Information Quality : GoodRhythm : Tachycardia INDICATION Dyspnea Cardiac Disease: CAD COPD RISK FACTORS Diabetes 2D DIMENSIONS IVSd1.2 (0.7-1.1cm)LVDd3.1 (3.9-5.9cm) PWd1.1 (0.7-1.1cm)LVDs2.2 (2.5-4.0cm) FS (%) 30.6 %LVEF (%)59.5 (>50%) M-Mode DIMENSIONS Left Atrium (MM)3.22 (2.5-4.0cm)Aortic Root3.61 (2.2-3.7cm) Aortic Cusp Exc.2.65 (1.5-2.0cm) Mitral Valve MV E Gwsyxvwl79.1cm/sMV A Hefkwkgr356.4cm/sE/A ratio0.6 TDI E/Lateral E'0.0E/Medial E'0.0 LEFT VENTRICLE The left ventricular systolic function is normal. The left ventricular ejection fraction is within the normal range. There is normal LV segmental wall motion. Transmitral Doppler flow pattern is Grade I-abnormal relaxation pattern. RIGHT VENTRICLE The right ventricle is normal size. The right ventricular systolic function is normal. ATRIA The left atrium size is normal. MITRAL VALVE The mitral valve is normal in structure. The mitral valve is not well visualized. There is no mitral valve regurgitation noted. TRICUSPID VALVE The tricuspid valve is not well visualized. PULMONIC VALVE The pulmonic valve is not well visualized. GREAT VESSELS The IVC was not visualized. PERICARDIAL EFFUSION There is no pericardial effusion. <Conclusion> TECHNICALLY DIFFICULT STUDY DUE TO POOR ACOUSTIC WINDOWS The left ventricular systolic function is normal. There is normal LV segmental wall motion. Transmitral Doppler flow pattern is Grade I-abnormal relaxation pattern. The right ventricular systolic function is normal. No gross pericardial effusion.
[2017-12-11] MEDS ORDERED: Albuterol-Ipratrop 3 mg / 0.5 (3 ml) UD ONE (19:54)
[2017-12-12] MEDS: Potassium Chl 40 mEq in D5-1/2 1,000 ML IV SCH
[2017-12-12] MEDS: Albuterol-Ipratrop 3 mg / 0.5 (3 ml) UD INH SCH ×4 (02:31→20:15)
[2017-12-12 06:35] LABS: BASO # 0.1 K/uL (0.0-0.2); BASO % 0.5 % (0.0-2.0); EOS # 0.2 K/uL (0.0-0.7); EOS % 1.4 % (0.0-4.0); HEMOGLOBIN 10.4 g/dL (12.0-18.0); LYMPH # 1.4 K/uL (1.0-4.3); LYMPH % 11.3 % (20.0-40.0); MEAN CELL VOLUME 70.9 fL (80.0-94.0); MEAN CORPUSCULAR HEMOGLOBIN 23.3 pg (27.0-31.0); MEAN CORPUSCULAR HGB CONC 32.9 g/dL (33.0-37.0); MONO # 1.2 K/uL (0.0-0.8); MONO % 10.4 % (0.0-10.0); NEUT # 9.2 K/uL (1.8-7.0); NEUT % 76.4 % (50.0-75.0); RBC 4.44 Mil/uL (4.40-5.90); RED CELL DISTRIBUTION WIDTH 17.9 % (11.5-14.5)
[2017-12-12] MEDS: Fluticasone-Salmeterol 250-50mcg Diskus INH SCH ×2 (07:12→20:15)
[2017-12-12 07:14] LABS: ALB/GLOB RATIO 1.1 (1.0-2.1); ALT/SGPT 24 U/L (21-72); AST/SGOT 24 U/L (17-59); BLOOD UREA NITROGEN 7 mg/dL (9-20); CALCIUM 8.2 mg/dl (8.6-10.4); GFR AFRICAN-AMERICAN > 60; GFR NON-AFRICAN AMERICAN > 60
[2017-12-12] MEDS: (Novolog) Insulin Aspart, Recombinant 100 u/ml 10 ml vial SC SCH ×4 (07:30→22:00)
[2017-12-12] MEDS: Enoxaparin 40 mg Syringe SC SCH (09:17)
[2017-12-12] MEDS: Pantoprazole 40 mg EC Tab PO SCH (09:19)
[2017-12-12] MEDS: Multiple Vitamins Tab PO SCH (09:19)
[2017-12-12] MEDS: Potassium Chloride 20 mEq ER Tab PO SCH (09:19)
[2017-12-12] MEDS ORDERED: Iohexol 240 (50 ml) PO ONE (12:00)
[2017-12-12] MEDS ORDERED: DiphenhydrAMINE 50 mg/ml Inj IVP ONE (12:30)
--- NOTE | 2017-12-12 15:30 | CT ---
PROCEDURE: CT Abdomen and Pelvis without intravenous contrast HISTORY: Entercutaneous fistula COMPARISON: CT scan of the abdomen and pelvis dated 05/10/2017. TECHNIQUE: Contiguous images were obtained from the domes of the diaphragms to the upper thighs without the administration of intravenous contrast. Oral contrast was administered. Radiation dose: Total exam DLP = 1070.8 mGy-cm. This CT exam was performed using one or more of the following dose reduction techniques: Automated exposure control, adjustment of the mA and/or kV according to patient size, and/or use of iterative reconstruction technique. FINDINGS: LOWER THORAX: Elevation of the left hemidiaphragm. Bibasilar atelectasis. No focal consolidation or pleural effusion. LIVER: Diffuse hepatic steatosis. No gross lesion or ductal dilatation. GALLBLADDER AND BILE DUCTS: Unremarkable. PANCREAS: Unremarkable. No gross lesion or ductal dilatation. SPLEEN: Unremarkable. ADRENALS: Unremarkable. No mass. KIDNEYS AND URETERS: Punctate right lower pole nonobstructive calculus. No hydronephrosis. No solid mass. VASCULATURE: Unremarkable. No aortic aneurysm. BOWEL: Reversal right lower quadrant diverting loop ileostomy without obvious evidence of anastomotic leak or enterocutaneous fistula. Prior low anterior resection. Diffusely dilated loops of small large bowel. No gross mural thickening. APPENDIX: Unremarkable. Normal appendix. PERITONEUM: Postsurgical changes in the right lower quadrant subcutaneous tissues. No free fluid. No free air. LYMPH NODES: Unremarkable. No enlarged lymph nodes. BLADDER: Distended with a small amount of anti dependent air, likely related to recent catheterization. REPRODUCTIVE: Unremarkable. BONES: Stable mild L5 superior endplate compression deformity. No acute fracture. OTHER FINDINGS: None. IMPRESSION: Interval reversal right lower quadrant diverting loop ileostomy without obvious evidence of anastomotic leak or enterocutaneous fistula. Diffusely dilated loops of small and large bowel most consistent with postoperative ileus. Additional stable findings as above.
--- NOTE | 2017-12-12 16:26 | CP.PCM.PN ---
Subjective - Date & Time of Evaluation Date of Evaluation: 12/12/17 Time of Evaluation: 16:24 - Subjective Subjective: fecal drainage from wound ct ( although contrast has not reached area) does not extravasate no fluid collection seen cpm may eat Objective - Vital Signs/Intake and Output Vital Signs (last 24 hours): Temp Pulse Resp BP Pulse Ox 98.5 F 114 H 18 124/74 98 12/12/17 12:00 12/12/17 13:41 12/12/17 12:00 12/12/17 12:00 12/12/17 12:00 Intake and Output: 12/12/17 12/12/17 06:59 18:59 Intake Total 1060 Output Total 800 Balance 260 - Medications Medications: Current Medications Albuterol/Ipratropium (Duoneb 3 Mg/0.5 Mg (3 Ml) Ud) 3 ml INH RQ6 [facility] Last Admin: 12/12/17 13:41 Dose: 3 ml Alprazolam (Xanax) 0.5 mg PO Q12H [facility] Last Admin: 12/12/17 09:19 Dose: 0.5 mg Diltiazem HCl (Cardizem) 90 mg PO TID [facility] Last Admin: 12/12/17 13:56 Dose: 90 mg Enoxaparin Sodium (Lovenox) 40 mg SC DAILY [facility] Last Admin: 12/12/17 09:17 Dose: 40 mg Potassium Chloride/Dextrose/Sod Cl (Potassium Chl 40 Meq In D5-1/2ns) 1,000 mls @ 100 mls/hr IV .Q10H [facility] Last Admin: 12/12/17 00:00 Dose: 100 mls/hr Insulin Aspart (Novolog) 0 unit SC ACHS [facility] PRN Reason: Protocol Last Admin: 12/12/17 11:29 Dose: Not Given Ketorolac Tromethamine (Toradol) 10 mg PO Q6 PRN PRN Reason: Pain, Mild (1-3) Last Admin: 12/12/17 09:20 Dose: 10 mg Montelukast Sodium (Singulair) 10 mg PO HS [facility] Last Admin: 12/11/17 22:00 Dose: 10 mg Multivitamins (Hexavitamin) 1 tab PO DAILY [facility] Last Admin: 12/12/17 09:19 Dose: 1 tab Oxycodone HCl (Oxycodone Immediate Release Tab) 5 mg PO Q6 PRN PRN Reason: Pain, moderate (4-7) Last Admin: 12/12/17 00:00 Dose: 5 mg Pantoprazole Sodium (Protonix Ec Tab) 40 mg PO DAILY [facility] Last Admin: 12/12/17 09:19 Dose: 40 mg Potassium Chloride (K-Dur 20 Meq Er Tab) 40 meq PO DAILY [facility] Last Admin: 12/12/17 09:19 Dose: 40 meq Roflumilast (Daliresp) 500 mcg PO DAILY [facility] Last Admin: 12/12/17 09:19 Dose: 500 mcg Fluticasone/Salmeterol (Advair Diskus 250/50) 1 puff INH RQ12 [facility] Last Admin: 12/12/17 07:12 Dose: 1 puff - Labs Labs: 12/12/17 06:25 12/12/17 06:26 PT 10.8 SECONDS (9.7-12.2) 12/04/17 09:38 INR 1.0 12/04/17 09:38 APTT 28 SECONDS (21-34) 12/04/17 09:38
[2017-12-12] MEDS ORDERED: Albuterol 0.042% Inhal Sol (1.25 mg/3 mL) UD INH STA (18:05)
[2017-12-12] MEDS: oxyCODONE 5 mg Immediate Release Tab PO PRN ×2 (18:10)
--- NOTE | 2017-12-12 22:59 | PN ---
DATE: SUBJECTIVE: The patient denies any chest pain, history of sinus tachycardia. PHYSICAL EXAMINATION: VITAL SIGNS: Blood pressure 124/74, heart rate 118, temperature 98.5. HEENT: Normocephalic. CHEST: Minimal rhonchi. HEART: S1 and S2 regular. EXTREMITIES: No edema. LABS: SMA-7, sodium 141, potassium 4.5, chloride 101, CO2 of 30, glucose 170, BUN 7, creatinine 0.5. The previous hemoglobin and hematocrit 10.4 and 31.5. White count of 12 and platelet count 304,000. Abdomen and pelvis CT scan, interval reversal right lower quadrant diverting loop ileostomy without obvious evidence of anastomotic leak or enterocutaneous fistula. Diffuse loops of the small and large bowel, most consistent with postoperative ileus. ASSESSMENT: 1. Status post closure of ileostomy, currently with cecal drainage from the wound. CT does not show exacerbation and no fluid collection seen. 2. Chronic obstructive lung disease. 3. Physiologic sinus tachycardia. 4. Hypertension. 5. Mild anemia. 6. Positive blood culture for Staph-coagulase negative. RECOMMENDATIONS: Case was discussed with Dr. Nieto for surgical plans. Continue current Cardizem at 90 mg t.i.d., K-Dur 20 mEq once a day, Lovenox 40 mg subcutaneous once a day, oral Protonix 40 mg once a day, Xanax 0.5 mg twice a day, and intravenous potassium replacement. Mukesh Correia MD
--- NOTE | 2017-12-12 23:10 | CP.PCM.PN ---
Subjective - Date & Time of Evaluation Date of Evaluation: 12/12/17 Time of Evaluation: 18:00 - Subjective Subjective: Pt seen and examined at bedside, he is tacycardic seen by surgery, has abdominal distention,afebrile s/p colostomy closure Objective - Vital Signs/Intake and Output Vital Signs (last 24 hours): Temp Pulse Resp BP Pulse Ox 99.8 F H 119 H 20 115/69 96 12/12/17 20:00 12/12/17 20:16 12/12/17 20:00 12/12/17 20:00 12/12/17 20:00 Intake and Output: 12/12/17 12/13/17 18:59 06:59 Intake Total 1600 200 Output Total 1000 Balance 600 200 - Medications Medications: Current Medications Albuterol/Ipratropium (Duoneb 3 Mg/0.5 Mg (3 Ml) Ud) 3 ml INH RQ6 [facility] Last Admin: 12/12/17 20:15 Dose: 3 ml Alprazolam (Xanax) 0.5 mg PO Q12H [facility] Last Admin: 12/12/17 22:00 Dose: 0.5 mg Diltiazem HCl (Cardizem) 90 mg PO TID [facility] Last Admin: 12/12/17 18:10 Dose: 90 mg Enoxaparin Sodium (Lovenox) 40 mg SC DAILY [facility] Last Admin: 12/12/17 09:17 Dose: 40 mg Potassium Chloride/Dextrose/Sod Cl (Potassium Chl 40 Meq In D5-1/2ns) 1,000 mls @ 100 mls/hr IV .Q10H [facility] Last Admin: 12/12/17 00:00 Dose: 100 mls/hr Insulin Aspart (Novolog) 0 unit SC ACHS [facility] PRN Reason: Protocol Last Admin: 12/12/17 22:00 Dose: Not Given Ketorolac Tromethamine (Toradol) 10 mg PO Q6 PRN PRN Reason: Pain, Mild (1-3) Last Admin: 12/12/17 09:20 Dose: 10 mg Montelukast Sodium (Singulair) 10 mg PO HS [facility] Last Admin: 12/12/17 22:20 Dose: 10 mg Multivitamins (Hexavitamin) 1 tab PO DAILY [facility] Last Admin: 12/12/17 09:19 Dose: 1 tab Oxycodone HCl (Oxycodone Immediate Release Tab) 5 mg PO Q6 PRN PRN Reason: Pain, moderate (4-7) Last Admin: 12/12/17 18:10 Dose: 5 mg Pantoprazole Sodium (Protonix Ec Tab) 40 mg PO DAILY [facility] Last Admin: 12/12/17 09:19 Dose: 40 mg Potassium Chloride (K-Dur 20 Meq Er Tab) 40 meq PO DAILY [facility] Last Admin: 12/12/17 09:19 Dose: 40 meq Roflumilast (Daliresp) 500 mcg PO DAILY [facility] Last Admin: 12/12/17 09:19 Dose: 500 mcg Fluticasone/Salmeterol (Advair Diskus 250/50) 1 puff INH RQ12 [facility] Last Admin: 12/12/17 20:15 Dose: Not Given - Labs Labs: 12/12/17 06:25 12/12/17 06:26 PT 10.8 SECONDS (9.7-12.2) 12/04/17 09:38 INR 1.0 12/04/17 09:38 APTT 28 SECONDS (21-34) 12/04/17 09:38 - Constitutional Appears: No Acute Distress - Head Exam Head Exam: ATRAUMATIC, NORMAL INSPECTION, NORMOCEPHALIC - Eye Exam Eye Exam: EOMI, Normal appearance, PERRL Pupil Exam: NORMAL ACCOMODATION, PERRL - Respiratory Exam Respiratory Exam: Clear to Ausculation Bilateral, NORMAL BREATHING PATTERN - Cardiovascular Exam Cardiovascular Exam: REGULAR RHYTHM, +S1, +S2. absent: Murmur - GI/Abdominal Exam GI & Abdominal Exam: Soft, Normal Bowel Sounds. absent: Tenderness - Neurological Exam Neurological Exam: Alert, Awake, CN II-XII Intact, Normal Gait, Oriented x3 Assessment and Plan (1) History of colostomy reversal Status: Acute (2) COPD exacerbation Status: Acute (3) BiPAP (biphasic positive airway pressure) dependence Status: Acute (4) Acute and chronic respiratory failure ([id number]) Status: Acute (5) Colostomy complication Status: Acute
[2017-12-13] MEDS: Potassium Chl 40 mEq in D5-1/2 1,000 ML IV SCH ×2 (00:40→11:59)
[2017-12-13] MEDS: oxyCODONE 5 mg Immediate Release Tab PO PRN ×3 (00:40→17:58)
[2017-12-13] MEDS: Albuterol-Ipratrop 3 mg / 0.5 (3 ml) UD INH SCH ×3 (01:56→20:26)
[2017-12-13 06:22] LABS: BASO # 0.1 K/uL (0.0-0.2); BASO % 0.4 % (0.0-2.0); EOS # 0.1 K/uL (0.0-0.7); EOS % 0.5 % (0.0-4.0); HEMOGLOBIN 10.2 g/dL (12.0-18.0); LYMPH # 1.8 K/uL (1.0-4.3); LYMPH % 12.4 % (20.0-40.0); MEAN CELL VOLUME 70.7 fL (80.0-94.0); MEAN CORPUSCULAR HGB CONC 32.6 g/dL (33.0-37.0); MONO # 0.9 K/uL (0.0-0.8); MONO % 6.2 % (0.0-10.0); NEUT # 11.9 K/uL (1.8-7.0); NEUT % 80.5 % (50.0-75.0); NRBC % 0.1 % (0.0-2.0); RBC 4.44 Mil/uL (4.40-5.90); WHITE BLOOD COUNT 14.8 K/uL (4.8-10.8)
[2017-12-13 06:42] LABS: ALB/GLOB RATIO 1.1 (1.0-2.1); ALT/SGPT 35 U/L (21-72); AST/SGOT 45 U/L (17-59); BLOOD UREA NITROGEN 2 mg/dL (9-20); CALCIUM 7.8 mg/dl (8.6-10.4); GFR AFRICAN-AMERICAN > 60; GFR NON-AFRICAN AMERICAN > 60
[2017-12-13] MEDS: Fluticasone-Salmeterol 250-50mcg Diskus INH SCH ×2 (07:25→20:25)
[2017-12-13] MEDS: (Novolog) Insulin Aspart, Recombinant 100 u/ml 10 ml vial SC SCH ×4 (07:30→22:42)
--- NOTE | 2017-12-13 08:18 | CP.PCM.PN ---
Subjective - Date & Time of Evaluation Date of Evaluation: 12/13/17 Time of Evaluation: 19:00 - Subjective Subjective: Pt seen and examined at bedside, pt is on BIPAP, tacypneac, tacycardic, abdomen still distented, no fever, nausea, vomitting Objective - Vital Signs/Intake and Output Vital Signs (last 24 hours): Temp Pulse Resp BP Pulse Ox 98.9 F 128 H 18 107/73 92 L 12/13/17 04:00 12/13/17 07:30 12/13/17 04:00 12/13/17 04:00 12/13/17 04:00 Intake and Output: 12/13/17 12/13/17 06:59 18:59 Intake Total 1220 Output Total 750 Balance 470 - Medications Medications: Current Medications Albuterol/Ipratropium (Duoneb 3 Mg/0.5 Mg (3 Ml) Ud) 3 ml INH RQ6 [facility] Last Admin: 12/13/17 07:25 Dose: 3 ml Alprazolam (Xanax) 0.5 mg PO Q12H [facility] Last Admin: 12/12/17 22:00 Dose: 0.5 mg Diltiazem HCl (Cardizem) 90 mg PO TID [facility] Last Admin: 12/12/17 18:10 Dose: 90 mg Enoxaparin Sodium (Lovenox) 40 mg SC DAILY [facility] Last Admin: 12/12/17 09:17 Dose: 40 mg Potassium Chloride/Dextrose/Sod Cl (Potassium Chl 40 Meq In D5-1/2ns) 1,000 mls @ 100 mls/hr IV .Q10H [facility] Last Admin: 12/13/17 00:40 Dose: 100 mls/hr Insulin Aspart (Novolog) 0 unit SC ACHS [facility] PRN Reason: Protocol Last Admin: 12/13/17 07:30 Dose: Not Given Ketorolac Tromethamine (Toradol) 10 mg PO Q6 PRN PRN Reason: Pain, Mild (1-3) Last Admin: 12/12/17 09:20 Dose: 10 mg Montelukast Sodium (Singulair) 10 mg PO HS [facility] Last Admin: 12/12/17 22:20 Dose: 10 mg Multivitamins (Hexavitamin) 1 tab PO DAILY [facility] Last Admin: 12/12/17 09:19 Dose: 1 tab Oxycodone HCl (Oxycodone Immediate Release Tab) 5 mg PO Q6 PRN PRN Reason: Pain, moderate (4-7) Last Admin: 12/13/17 08:01 Dose: 5 mg Pantoprazole Sodium (Protonix Ec Tab) 40 mg PO DAILY [facility] Last Admin: 12/12/17 09:19 Dose: 40 mg Potassium Chloride (K-Dur 20 Meq Er Tab) 40 meq PO DAILY [facility] Last Admin: 12/12/17 09:19 Dose: 40 meq Roflumilast (Daliresp) 500 mcg PO DAILY [facility] Last Admin: 12/12/17 09:19 Dose: 500 mcg Fluticasone/Salmeterol (Advair Diskus 250/50) 1 puff INH RQ12 [facility] Last Admin: 12/13/17 07:25 Dose: 1 puff - Labs Labs: 12/13/17 06:16 12/13/17 06:16 PT 10.8 SECONDS (9.7-12.2) 12/04/17 09:38 INR 1.0 12/04/17 09:38 APTT 28 SECONDS (21-34) 12/04/17 09:38 - Constitutional Appears: No Acute Distress - Head Exam Head Exam: ATRAUMATIC, NORMAL INSPECTION, NORMOCEPHALIC - Eye Exam Eye Exam: EOMI, Normal appearance, PERRL Pupil Exam: NORMAL ACCOMODATION, PERRL - Respiratory Exam Respiratory Exam: Decreased Breath Sounds, Rales, Rhonchi - Cardiovascular Exam Cardiovascular Exam: REGULAR RHYTHM, +S1, +S2. absent: Murmur - GI/Abdominal Exam GI & Abdominal Exam: Distended Assessment and Plan (1) History of colostomy reversal Assessment & Plan: post op care ICU monitoring Status: Acute (2) COPD exacerbation Status: Acute (3) BiPAP (biphasic positive airway pressure) dependence Status: Acute (4) Acute and chronic respiratory failure ([id number]) Status: Acute (5) Colostomy complication Status: Acute
[2017-12-13] MEDS: Potassium Chloride 20 mEq ER Tab PO SCH (09:39)
[2017-12-13] MEDS: Enoxaparin 40 mg Syringe SC SCH (09:39)
[2017-12-13] MEDS: Multiple Vitamins Tab PO SCH (09:39)
[2017-12-13] MEDS: Pantoprazole 40 mg EC Tab PO SCH (09:40)
--- NOTE | 2017-12-13 09:59 | CP.PCM.PN ---
Subjective - Date & Time of Evaluation Date of Evaluation: 12/13/17 Time of Evaluation: 07:00 - Subjective Subjective: Surgery- Dr. Nieto Patient seen and examined at bedside this AM. No acute events overnight. Nursing notes reviewed. Currently on BiPAP. Wound covered with colostomy bag w/ minimal fecal drainage from wound. + Flatus and + BM Denies: fevers, chills Objective - Vital Signs/Intake and Output Vital Signs (last 24 hours): Temp Pulse Resp BP Pulse Ox 98.9 F 128 H 18 107/73 92 L 12/13/17 04:00 12/13/17 07:30 12/13/17 04:00 12/13/17 04:00 12/13/17 04:00 Intake and Output: 12/13/17 12/13/17 06:59 18:59 Intake Total 1220 Output Total 750 Balance 470 - Medications Medications: Current Medications Albuterol/Ipratropium (Duoneb 3 Mg/0.5 Mg (3 Ml) Ud) 3 ml INH RQ6 [facility] Last Admin: 12/13/17 07:25 Dose: 3 ml Alprazolam (Xanax) 0.5 mg PO Q12H [facility] Last Admin: 12/13/17 09:39 Dose: 0.5 mg Diltiazem HCl (Cardizem) 90 mg PO TID [facility] Last Admin: 12/13/17 09:39 Dose: 90 mg Enoxaparin Sodium (Lovenox) 40 mg SC DAILY [facility] Last Admin: 12/13/17 09:39 Dose: 40 mg Potassium Chloride/Dextrose/Sod Cl (Potassium Chl 40 Meq In D5-1/2ns) 1,000 mls @ 100 mls/hr IV .Q10H [facility] Last Admin: 12/13/17 00:40 Dose: 100 mls/hr Insulin Aspart (Novolog) 0 unit SC ACHS [facility] PRN Reason: Protocol Last Admin: 12/13/17 07:30 Dose: Not Given Ketorolac Tromethamine (Toradol) 10 mg PO Q6 PRN PRN Reason: Pain, Mild (1-3) Last Admin: 12/12/17 09:20 Dose: 10 mg Montelukast Sodium (Singulair) 10 mg PO HS [facility] Last Admin: 12/12/17 22:20 Dose: 10 mg Multivitamins (Hexavitamin) 1 tab PO DAILY [facility] Last Admin: 12/13/17 09:39 Dose: 1 tab Oxycodone HCl (Oxycodone Immediate Release Tab) 5 mg PO Q6 PRN PRN Reason: Pain, moderate (4-7) Last Admin: 12/13/17 08:01 Dose: 5 mg Pantoprazole Sodium (Protonix Ec Tab) 40 mg PO DAILY [facility] Last Admin: 12/13/17 09:40 Dose: 40 mg Potassium Chloride (K-Dur 20 Meq Er Tab) 40 meq PO DAILY [facility] Last Admin: 12/13/17 09:39 Dose: 40 meq Roflumilast (Daliresp) 500 mcg PO DAILY [facility] Last Admin: 12/13/17 09:39 Dose: 500 mcg Fluticasone/Salmeterol (Advair Diskus 250/50) 1 puff INH RQ12 [facility] Last Admin: 12/13/17 07:25 Dose: 1 puff - Labs Labs: 12/13/17 06:16 12/13/17 06:16 PT 10.8 SECONDS (9.7-12.2) 12/04/17 09:38 INR 1.0 12/04/17 09:38 APTT 28 SECONDS (21-34) 12/04/17 09:38 - Constitutional Appears: Non-toxic, No Acute Distress - Head Exam Head Exam: ATRAUMATIC - Eye Exam Eye Exam: EOMI - ENT Exam ENT Exam: Mucous Membranes Moist - Respiratory Exam Respiratory Exam: NORMAL BREATHING PATTERN. absent: Accessory Muscle Use, Respiratory Distress - Cardiovascular Exam Cardiovascular Exam: Tachycardia, +S1, +S2. absent: Bradycardia - GI/Abdominal Exam GI & Abdominal Exam: Distended, Soft. absent: Guarding, Rigid, Tenderness Additional comments: Wound/fistula in RLQ of abdomen. Minimal drainage, covered w/ Colostomy bag - Extremities Exam Extremities Exam: absent: Calf Tenderness - Neurological Exam Neurological Exam: Alert, Awake, Oriented x3 - Psychiatric Exam Psychiatric exam: Normal Affect - Skin Skin Exam: Intact, Warm Assessment and Plan - Assessment and Plan (Free Text) Assessment: 67M s/p ileostomy reversal POD#7 Plan: -cover wound with colostomy bag; monitor output -regular diet -encourage OOB & IC use -medical management per primary -discussed w/ Dr[facility]
--- NOTE | 2017-12-13 12:12 | CP.PCM.PN ---
Subjective - Date & Time of Evaluation Date of Evaluation: 12/13/17 Time of Evaluation: 07:00 - Subjective Subjective: he patient seen and examined Denies shortness of breath Patient states passing gas and positive bowel movement Colostomy bag noted Afebrile Objective - Vital Signs/Intake and Output Vital Signs (last 24 hours): Temp Pulse Resp BP Pulse Ox 97.8 F 128 H 18 129/79 92 L 12/13/17 08:00 12/13/17 08:00 12/13/17 08:00 12/13/17 08:00 12/13/17 08:00 Intake and Output: 12/13/17 12/13/17 06:59 18:59 Intake Total 1220 Output Total 750 Balance 470 - Medications Medications: Current Medications Albuterol/Ipratropium (Duoneb 3 Mg/0.5 Mg (3 Ml) Ud) 3 ml INH RQ6 [facility] Last Admin: 12/13/17 07:25 Dose: 3 ml Alprazolam (Xanax) 0.5 mg PO Q12H [facility] Last Admin: 12/13/17 09:39 Dose: 0.5 mg Diltiazem HCl (Cardizem) 90 mg PO TID [facility] Last Admin: 12/13/17 09:39 Dose: 90 mg Enoxaparin Sodium (Lovenox) 40 mg SC DAILY [facility] Last Admin: 12/13/17 09:39 Dose: 40 mg Potassium Chloride/Dextrose/Sod Cl (Potassium Chl 40 Meq In D5-1/2ns) 1,000 mls @ 100 mls/hr IV .Q10H [facility] Last Admin: 12/13/17 11:59 Dose: 100 mls/hr Insulin Aspart (Novolog) 0 unit SC ACHS [facility] PRN Reason: Protocol Last Admin: 12/13/17 11:58 Dose: 2 unit Montelukast Sodium (Singulair) 10 mg PO HS [facility] Last Admin: 12/12/17 22:20 Dose: 10 mg Multivitamins (Hexavitamin) 1 tab PO DAILY [facility] Last Admin: 12/13/17 09:39 Dose: 1 tab Oxycodone HCl (Oxycodone Immediate Release Tab) 5 mg PO Q6 PRN PRN Reason: Pain, moderate (4-7) Last Admin: 12/13/17 08:01 Dose: 5 mg Pantoprazole Sodium (Protonix Ec Tab) 40 mg PO DAILY [facility] Last Admin: 12/13/17 09:40 Dose: 40 mg Potassium Chloride (K-Dur 20 Meq Er Tab) 40 meq PO DAILY [facility] Last Admin: 12/13/17 09:39 Dose: 40 meq Roflumilast (Daliresp) 500 mcg PO DAILY [facility] Last Admin: 12/13/17 09:39 Dose: 500 mcg Fluticasone/Salmeterol (Advair Diskus 250/50) 1 puff INH RQ12 [facility] Last Admin: 12/13/17 07:25 Dose: 1 puff - Labs Labs: 12/13/17 06:16 12/13/17 06:16 PT 10.8 SECONDS (9.7-12.2) 12/04/17 09:38 INR 1.0 12/04/17 09:38 APTT 28 SECONDS (21-34) 12/04/17 09:38 - Head Exam Head Exam: ATRAUMATIC, NORMOCEPHALIC - Eye Exam Eye Exam: Normal appearance - ENT Exam ENT Exam: Mucous Membranes Moist - Neck Exam Neck Exam: Normal Inspection - Respiratory Exam Respiratory Exam: Decreased Breath Sounds - Cardiovascular Exam Cardiovascular Exam: REGULAR RHYTHM - Extremities Exam Extremities Exam: Normal Inspection - Neurological Exam Neurological Exam: Alert Assessment and Plan (1) COPD (chronic obstructive pulmonary disease) Assessment & Plan: COPD stable Continue nebulizer treatment Continue Advair Surgical followup and management Status: Acute
--- NOTE | 2017-12-13 18:49 | PN ---
DATE: SUBJECTIVE: The patient denies any chest pain or abdominal pain. PHYSICAL EXAMINATION: VITAL SIGNS: Blood pressure 126/74, heart rate 131, temperature 98, respirations 18. HEENT: Normocephalic. CHEST: Clear. HEART: Heart sounds are regular. EXTREMITIES: No edema. LABORATORY DATA: Hemoglobin and hematocrit 10.2 and 31.4, white count 14.8, platelet count 317, 000. SMA-7: Sodium 137, potassium 4.2, chloride 99, CO2 is 29, glucose 134, BUN 2, creatinine 0.6. ASSESSMENT: 1. Status post ileostomy closure. 2. Sinus tachycardia, which is physiologic. 3. Chronic obstructive lung disease. 4. Mild anemia. RECOMMENDATIONS: Continue Cardizem at 90 mg three times a day, K-Dur 40 mEq p.o. once a day, Lovenox 40 mg once a day, Singulair, Xanax, and oral Protonix. Obtain venous Doppler of the lower extremities. Mukesh Correia MD
[2017-12-14] MEDS: Potassium Chl 40 mEq in D5-1/2 1,000 ML IV SCH ×5 (01:45→22:20)
[2017-12-14] MEDS: Albuterol-Ipratrop 3 mg / 0.5 (3 ml) UD INH SCH ×4 (02:05→19:14)
[2017-12-14 06:44] LABS: BASO # 0.2 K/uL (0.0-0.2); BASO % 1.1 % (0.0-2.0); EOS # 0.1 K/uL (0.0-0.7); EOS % 0.5 % (0.0-4.0); HEMOGLOBIN 9.8 g/dL (12.0-18.0); LYMPH # 1.3 K/uL (1.0-4.3); LYMPH % 9.1 % (20.0-40.0); MEAN CELL VOLUME 70.4 fL (80.0-94.0); MEAN CORPUSCULAR HEMOGLOBIN 23.3 pg (27.0-31.0); MEAN CORPUSCULAR HGB CONC 33.1 g/dL (33.0-37.0); MEAN PLATELET VOLUME 7.9 fL (7.2-11.7); MONO # 1.1 K/uL (0.0-0.8); MONO % 7.2 % (0.0-10.0); NEUT # 12.1 K/uL (1.8-7.0); NEUT % 82.1 % (50.0-75.0); PLATELET COUNT 304 K/uL (130-400); RBC 4.21 Mil/uL (4.40-5.90); RED CELL DISTRIBUTION WIDTH 17.7 % (11.5-14.5); WHITE BLOOD COUNT 14.7 K/uL (4.8-10.8)
[2017-12-14 07:04] LABS: ALBUMIN 2.9 g/dL (3.5-5.0); ALT/SGPT 73 U/L (21-72); AST/SGOT 68 U/L (17-59); BLOOD UREA NITROGEN 2 mg/dL (9-20); CALCIUM 7.8 mg/dl (8.6-10.4); GFR AFRICAN-AMERICAN > 60; GFR NON-AFRICAN AMERICAN > 60
[2017-12-14] MEDS: Fluticasone-Salmeterol 250-50mcg Diskus INH SCH ×2 (07:39→19:15)
[2017-12-14] MEDS: (Novolog) Insulin Aspart, Recombinant 100 u/ml 10 ml vial SC SCH ×4 (07:42→22:00)
[2017-12-14] MEDS: oxyCODONE 5 mg Immediate Release Tab PO PRN ×2 (07:43→14:38)
[2017-12-14 08:40] LABS: ANISOCYTOSIS SLIGHT; BASOPHIL 1 % (0-2); HYPOCHROMIC SLIGHT; LYMPHOCYTE 9 % (20-40); MONOCYTE 5 % (0-10); NEUTROPHIL 85 % (50-75); PLATELET ESTIMATE NORMAL (NORMAL); POIKILOCYTOSIS SLIGHT; TOTAL CELLS COUNTED 100
[2017-12-14 08:41] LABS: OVALOCYTES SLIGHT; TARGET CELLS SLIGHT
[2017-12-14] MEDS: Enoxaparin 40 mg Syringe SC SCH (09:42)
[2017-12-14] MEDS: Multiple Vitamins Tab PO SCH (09:43)
[2017-12-14] MEDS: Pantoprazole 40 mg EC Tab PO SCH (09:43)
[2017-12-14] MEDS: Potassium Chloride 20 mEq ER Tab PO SCH (09:45)
--- NOTE | 2017-12-14 13:03 | CP.PCM.PN ---
Subjective - Date & Time of Evaluation Date of Evaluation: 12/14/17 Time of Evaluation: 10:20 - Subjective Subjective: The patient was seen and examined at bedside resting comfortably but notably still tachycardic. Denies shortness of breath, afebrile. 1.COPD - Saturating 97-100% on 3L NC - BiPAP settings to 07/18 - CXR 12/04: bibasilar atelectasis - duonebs - pulmicort - singulair - solumedrol Objective - Vital Signs/Intake and Output Vital Signs (last 24 hours): Temp Pulse Resp BP Pulse Ox 98.1 F 118 H 19 97/61 L 95 12/14/17 12:00 12/14/17 12:06 12/14/17 12:06 12/14/17 12:06 12/14/17 12:06 Intake and Output: 12/14/17 12/14/17 06:59 18:59 Intake Total 1200 870 Output Total 850 Balance 1200 20 - Medications Medications: Current Medications Albuterol/Ipratropium (Duoneb 3 Mg/0.5 Mg (3 Ml) Ud) 3 ml INH RQ6 [facility] Last Admin: 12/14/17 07:39 Dose: 3 ml Alprazolam (Xanax) 0.5 mg PO Q12H [facility] Last Admin: 12/14/17 09:43 Dose: 0.5 mg Diltiazem HCl (Cardizem) 90 mg PO TID [facility] Last Admin: 12/14/17 09:43 Dose: 90 mg Potassium Chloride/Dextrose/Sod Cl (Potassium Chl 40 Meq In D5-1/2ns) 1,000 mls @ 100 mls/hr IV .Q10H [facility] Last Admin: 12/14/17 11:52 Dose: 100 mls/hr Insulin Aspart (Novolog) 0 unit SC ACHS [facility] PRN Reason: Protocol Last Admin: 12/14/17 11:49 Dose: 2 unit Montelukast Sodium (Singulair) 10 mg PO HS [facility] Last Admin: 12/13/17 22:42 Dose: 10 mg Multivitamins (Hexavitamin) 1 tab PO DAILY [facility] Last Admin: 12/14/17 09:43 Dose: 1 tab Oxycodone HCl (Oxycodone Immediate Release Tab) 5 mg PO Q6 PRN PRN Reason: Pain, moderate (4-7) Last Admin: 12/14/17 07:43 Dose: 5 mg Pantoprazole Sodium (Protonix Ec Tab) 40 mg PO DAILY [facility] Last Admin: 12/14/17 09:43 Dose: 40 mg Potassium Chloride (K-Dur 20 Meq Er Tab) 40 meq PO DAILY [facility] Last Admin: 12/14/17 09:45 Dose: 40 meq Roflumilast (Daliresp) 500 mcg PO DAILY [facility] Last Admin: 12/14/17 09:43 Dose: 500 mcg Fluticasone/Salmeterol (Advair Diskus 250/50) 1 puff INH RQ12 [facility] Last Admin: 12/14/17 07:39 Dose: 1 puff - Labs Labs: 12/14/17 06:41 12/14/17 06:41 PT 10.8 SECONDS (9.7-12.2) 12/04/17 09:38 INR 1.0 12/04/17 09:38 APTT 28 SECONDS (21-34) 12/04/17 09:38 Assessment and Plan (1) COPD (chronic obstructive pulmonary disease) Status: Acute
--- NOTE | 2017-12-14 14:23 | CP.PCM.PN ---
Subjective - Date & Time of Evaluation Date of Evaluation: 12/14/17 Time of Evaluation: 07:00 - Subjective Subjective: General Surgery progress note for Dr. Nieto This 67M was seen and examined at bedside this AM. No acute events overnight. Nursing notes reviewed. Currently on BiPAP. 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 Objective - Vital Signs/Intake and Output Vital Signs (last 24 hours): Temp Pulse Resp BP Pulse Ox 98.1 F 115 H 18 123/70 88 L 12/14/17 12:00 12/14/17 13:37 12/14/17 13:16 12/14/17 13:16 12/14/17 13:16 Intake and Output: 12/14/17 12/14/17 06:59 18:59 Intake Total 1200 1070 Output Total 850 Balance 1200 220 - Medications Medications: Current Medications Albuterol/Ipratropium (Duoneb 3 Mg/0.5 Mg (3 Ml) Ud) 3 ml INH RQ6 [facility] Last Admin: 12/14/17 13:36 Dose: 3 ml Alprazolam (Xanax) 0.5 mg PO Q12H [facility] Last Admin: 12/14/17 09:43 Dose: 0.5 mg Diltiazem HCl (Cardizem) 90 mg PO TID [facility] Last Admin: 12/14/17 13:17 Dose: 90 mg Potassium Chloride/Dextrose/Sod Cl (Potassium Chl 40 Meq In D5-1/2ns) 1,000 mls @ 100 mls/hr IV .Q10H [facility] Last Admin: 12/14/17 11:52 Dose: 100 mls/hr Insulin Aspart (Novolog) 0 unit SC ACHS [facility] PRN Reason: Protocol Last Admin: 12/14/17 11:49 Dose: 2 unit Montelukast Sodium (Singulair) 10 mg PO HS [facility] Last Admin: 12/13/17 22:42 Dose: 10 mg Multivitamins (Hexavitamin) 1 tab PO DAILY [facility] Last Admin: 12/14/17 09:43 Dose: 1 tab Oxycodone HCl (Oxycodone Immediate Release Tab) 5 mg PO Q6 PRN PRN Reason: Pain, moderate (4-7) Last Admin: 12/14/17 07:43 Dose: 5 mg Pantoprazole Sodium (Protonix Ec Tab) 40 mg PO DAILY [facility] Last Admin: 12/14/17 09:43 Dose: 40 mg Potassium Chloride (K-Dur 20 Meq Er Tab) 40 meq PO DAILY [facility] Last Admin: 12/14/17 09:45 Dose: 40 meq Roflumilast (Daliresp) 500 mcg PO DAILY [facility] Last Admin: 12/14/17 09:43 Dose: 500 mcg Fluticasone/Salmeterol (Advair Diskus 250/50) 1 puff INH RQ12 [facility] Last Admin: 12/14/17 07:39 Dose: 1 puff - Labs Labs: 12/14/17 06:41 12/14/17 06:41 PT 10.8 SECONDS (9.7-12.2) 12/04/17 09:38 INR 1.0 12/04/17 09:38 APTT 28 SECONDS (21-34) 12/04/17 09:38 - Constitutional Appears: Non-toxic, No Acute Distress - Head Exam Head Exam: ATRAUMATIC - Eye Exam Eye Exam: EOMI - ENT Exam ENT Exam: Mucous Membranes Moist - Respiratory Exam Respiratory Exam: NORMAL BREATHING PATTERN. absent: Accessory Muscle Use, Respiratory Distress - Cardiovascular Exam Cardiovascular Exam: Tachycardia, +S1, +S2. absent: Bradycardia - GI/Abdominal Exam GI & Abdominal Exam: Distended, Soft. absent: Guarding, Rigid, Tenderness Additional comments: Wound/fistula in RLQ of abdomen. Minimal drainage, covered w/ Colostomy bag - Extremities Exam Extremities Exam: absent: Calf Tenderness - Neurological Exam Neurological Exam: Alert, Awake, Oriented x3 - Psychiatric Exam Psychiatric exam: Normal Affect - Skin Skin Exam: Intact, Warm Assessment and Plan - Assessment and Plan (Free Text) Assessment: 67M s/p ileostomy reversal POD#8 Plan: -cover wound with colostomy bag; monitor output -regular diet -encourage OOB & IC use -medical management per primary - D/W Dr. Emilia Woods PGY2
--- NOTE | 2017-12-14 14:30 | PN ---
DATE: 12/14/2017 SUBJECTIVE: The patient denies chest pain. He is experiencing abdominal discomfort and refuses to eat or drink today. He is still in sinus tachycardia and he is reporting diarrhea. PHYSICAL EXAMINATION VITAL SIGNS: Blood pressure 123/70, heart rate 126, respirations 18, temperature 98.1. HEENT: Normocephalic. CHEST: Clear. CARDIOPULMONARY: S1 and S2 regular. EXTREMITIES: No edema. LABORATORY DATA: Today's SMA-7 is within normal limits except for glucose of 170 and creatinine of 3.5. Hemoglobin and hematocrit of 9.8 and 29.6, white count 14.7, platelet count 304,000. Stool for C. diff was negative. ASSESSMENT AND PLAN: 1. Status post closure of ileostomy. 2. Chronic obstructive lung disease. 3. Hypertension. 4. Sinus tachycardia. RECOMMENDATIONS: The case was discussed with the medical team. Continue current Cardizem, K-Dur, oral Protonix, and Xanax. Optimize pain management and hydration. Venous Doppler of lower extremity, report of the study is still pending and most recent ventilation/perfusion scan on 12/04/2017 was low probability for PE. Mukesh Correia MD
--- NOTE | 2017-12-14 14:30 | CP.PCM.PN ---
Subjective - Date & Time of Evaluation Date of Evaluation: 12/14/17 Time of Evaluation: 17:00 - Subjective Subjective: Pt seen and examined at bedside, pt has persitant loose wattery stools, s/p reversal of clostomy, rule out C.diff colitis stool send for c.diff, pt is tacypneac, tacycardic, he is on diltiazem Objective - Vital Signs/Intake and Output Vital Signs (last 24 hours): Temp Pulse Resp BP Pulse Ox 98.1 F 115 H 18 123/70 88 L 12/14/17 12:00 12/14/17 13:37 12/14/17 13:16 12/14/17 13:16 12/14/17 13:16 Intake and Output: 12/14/17 12/14/17 06:59 18:59 Intake Total 1200 1070 Output Total 850 Balance 1200 220 - Medications Medications: Current Medications Albuterol/Ipratropium (Duoneb 3 Mg/0.5 Mg (3 Ml) Ud) 3 ml INH RQ6 [facility] Last Admin: 12/14/17 13:36 Dose: 3 ml Alprazolam (Xanax) 0.5 mg PO Q12H [facility] Last Admin: 12/14/17 09:43 Dose: 0.5 mg Diltiazem HCl (Cardizem) 90 mg PO TID [facility] Last Admin: 12/14/17 13:17 Dose: 90 mg Potassium Chloride/Dextrose/Sod Cl (Potassium Chl 40 Meq In D5-1/2ns) 1,000 mls @ 100 mls/hr IV .Q10H [facility] Last Admin: 12/14/17 11:52 Dose: 100 mls/hr Insulin Aspart (Novolog) 0 unit SC ACHS [facility] PRN Reason: Protocol Last Admin: 12/14/17 11:49 Dose: 2 unit Montelukast Sodium (Singulair) 10 mg PO HS [facility] Last Admin: 12/13/17 22:42 Dose: 10 mg Multivitamins (Hexavitamin) 1 tab PO DAILY [facility] Last Admin: 12/14/17 09:43 Dose: 1 tab Oxycodone HCl (Oxycodone Immediate Release Tab) 5 mg PO Q6 PRN PRN Reason: Pain, moderate (4-7) Last Admin: 12/14/17 07:43 Dose: 5 mg Pantoprazole Sodium (Protonix Ec Tab) 40 mg PO DAILY [facility] Last Admin: 12/14/17 09:43 Dose: 40 mg Potassium Chloride (K-Dur 20 Meq Er Tab) 40 meq PO DAILY [facility] Last Admin: 12/14/17 09:45 Dose: 40 meq Roflumilast (Daliresp) 500 mcg PO DAILY [facility] Last Admin: 12/14/17 09:43 Dose: 500 mcg Fluticasone/Salmeterol (Advair Diskus 250/50) 1 puff INH RQ12 [facility] Last Admin: 12/14/17 07:39 Dose: 1 puff - Labs Labs: 12/14/17 06:41 12/14/17 06:41 PT 10.8 SECONDS (9.7-12.2) 12/04/17 09:38 INR 1.0 12/04/17 09:38 APTT 28 SECONDS (21-34) 12/04/17 09:38 - Constitutional Appears: No Acute Distress - Head Exam Head Exam: ATRAUMATIC, NORMAL INSPECTION, NORMOCEPHALIC - Eye Exam Eye Exam: EOMI, Normal appearance, PERRL Pupil Exam: NORMAL ACCOMODATION, PERRL - Respiratory Exam Respiratory Exam: Clear to Ausculation Bilateral, NORMAL BREATHING PATTERN - Cardiovascular Exam Cardiovascular Exam: REGULAR RHYTHM, +S1, +S2. absent: Murmur - GI/Abdominal Exam GI & Abdominal Exam: Distended, Soft, Normal Bowel Sounds. absent: Tenderness - Rectal Exam Rectal Exam: Deferred Assessment and Plan (1) History of colostomy reversal Status: Acute (2) COPD exacerbation Status: Acute (3) BiPAP (biphasic positive airway pressure) dependence Status: Acute (4) Acute and chronic respiratory failure ([id number]) Status: Acute (5) Colostomy complication Status: Acute
--- NOTE | 2017-12-14 16:03 | VASCLAB ---
PROCEDURE: Lower Extremity Venous Duplex Exam. HISTORY: r/o dvt PRIORS: Lower extremity ultrasound dated 04/05/2017. TECHNIQUE: Bilateral common femoral, femoral, popliteal and posterior tibial, peroneal and great saphenous veins were evaluated. Flow was assessed with color Doppler, compressibility, assessment of phasic flow and augmentation response. Report prepared by Guillermo Gayle, BS, RVT FINDINGS: RIGHT: 1. Common Femoral Vein: 1.1. Compressibility - Fully compressible: Thrombus - None : Flow - Phasic: Augmentation -Normal: Reflux - None. 2. Femoral Vein: 2.1. Compressibility - Fully compressible: Thrombus - None : Flow - Phasic: Augmentation -Normal: Reflux - None. 3. Popliteal Vein: 3.1. Compressibility - Fully compressible: Thrombus - None : Flow - Phasic: Augmentation -Normal: Reflux - None. 4. Posterior Tibial Vein: 4.1. Compressibility - Fully compressible: Thrombus - None: Flow - Phasic: Augmentation -Normal: Reflux - None. 5. Peroneal Vein: 5.1. Compressibility - Fully compressible: Thrombus - None: Flow - Phasic: Augmentation -Normal: Reflux - None. 6. Great Saphenous Vein: 6.1. Compressibility - Fully compressible: Thrombus - None: Flow - Phasic: Augmentation - Normal: Reflux - None. LEFT: 1. Common Femoral Vein: 1.1. Compressibility - Fully compressible: Thrombus - None: Flow - Phasic: Augmentation -Normal: Reflux - None. 2. Femoral Vein: 2.1. Compressibility - Fully compressible: Thrombus - None: Flow - Phasic: Augmentation -Normal: Reflux - None. 3. Popliteal Vein: 3.1. Compressibility - Fully compressible: Thrombus - None : Flow - Phasic: Augmentation -Normal: Reflux - None. 4. Posterior Tibial Vein: 4.1. Compressibility - Fully compressible: Thrombus - None: Flow - Phasic: Augmentation -Normal: Reflux - None. 5. Peroneal Vein: 5.1. Compressibility - Fully compressible: Thrombus - None: Flow - Phasic: Augmentation -Normal: Reflux - None. 6. Great Saphenous Vein: 6.1. Compressibility - Fully compressible: Thrombus - None: Flow - Phasic: Augmentation - Normal: Reflux - None. OTHER FINDINGS: Right: None significant. Left: None significant. IMPRESSION: Right: No evidence of deep or superficial vein thrombosis of the right lower extremity. Normal valve function noted of the right side. Left: No evidence of deep or superficial vein thrombosis of the left lower extremity. Normal valve function noted of the left side.
[2017-12-14] MEDS: Morphine 4 MG/ML VIAL IVP PRN (22:15)
[2017-12-15] MEDS: Albuterol-Ipratrop 3 mg / 0.5 (3 ml) UD INH SCH ×4 (02:09→20:02)
[2017-12-15] MEDS: Morphine 4 MG/ML VIAL IVP PRN ×5 (02:10→21:19)
[2017-12-15 06:49] LABS: BASO % 0.3 % (0.0-2.0); EOS # 0.1 K/uL (0.0-0.7); EOS % 0.6 % (0.0-4.0); HEMOGLOBIN 9.8 g/dL (12.0-18.0); LYMPH # 1.6 K/uL (1.0-4.3); LYMPH % 11.3 % (20.0-40.0); MEAN CELL VOLUME 71.2 fL (80.0-94.0); MEAN CORPUSCULAR HEMOGLOBIN 23.6 pg (27.0-31.0); MEAN CORPUSCULAR HGB CONC 33.1 g/dL (33.0-37.0); MEAN PLATELET VOLUME 8.1 fL (7.2-11.7); MONO % 7.3 % (0.0-10.0); NEUT # 11.5 K/uL (1.8-7.0); NEUT % 80.5 % (50.0-75.0); RBC 4.14 Mil/uL (4.40-5.90); RED CELL DISTRIBUTION WIDTH 17.4 % (11.5-14.5); WHITE BLOOD COUNT 14.3 K/uL (4.8-10.8)
--- NOTE | 2017-12-15 07:15 | CP.PCM.PN ---
Subjective - Date & Time of Evaluation Date of Evaluation: 12/15/17 Time of Evaluation: 07:08 - Subjective Subjective: General surgery progress note for Dr. Barak Hanna, PGY-1 Pt S & E at bedside at 0708 Per nursing, pt requiring morphine overnight for abdominal pain. Currently on O2 via NC. Reports BM per rectum and output 150cc of output via fistula. Denies N & V, F & C. Objective - Vital Signs/Intake and Output Vital Signs (last 24 hours): Temp Pulse Resp BP Pulse Ox 100.4 F H 125 H 23 111/67 98 12/15/17 00:00 12/15/17 02:00 12/15/17 02:00 12/15/17 00:06 12/15/17 02:00 Intake and Output: 12/15/17 12/15/17 06:59 18:59 Intake Total 1100 Output Total 200 Balance 900 - Medications Medications: Current Medications Albuterol/Ipratropium (Duoneb 3 Mg/0.5 Mg (3 Ml) Ud) 3 ml INH RQ6 [facility] Last Admin: 12/15/17 02:09 Dose: 3 ml Diltiazem HCl (Cardizem) 90 mg PO TID [facility] Last Admin: 12/14/17 17:40 Dose: 90 mg Enoxaparin Sodium (Lovenox) 40 mg SC DAILY [facility] Insulin Aspart (Novolog) 0 unit SC ACHS [facility] PRN Reason: Protocol Last Admin: 12/14/17 22:00 Dose: Not Given Montelukast Sodium (Singulair) 10 mg PO HS [facility] Last Admin: 12/14/17 22:14 Dose: 10 mg Morphine Sulfate (Morphine) 2 mg IVP Q4 PRN PRN Reason: Pain, moderate (4-7) Last Admin: 12/15/17 06:50 Dose: 2 mg Multivitamins (Hexavitamin) 1 tab PO DAILY [facility] Last Admin: 12/14/17 09:43 Dose: 1 tab Pantoprazole Sodium (Protonix Ec Tab) 40 mg PO DAILY [facility] Last Admin: 12/14/17 09:43 Dose: 40 mg Potassium Chloride (K-Dur 20 Meq Er Tab) 40 meq PO DAILY [facility] Last Admin: 12/14/17 09:45 Dose: 40 meq Roflumilast (Daliresp) 500 mcg PO DAILY [facility] Last Admin: 12/14/17 09:43 Dose: 500 mcg Fluticasone/Salmeterol (Advair Diskus 250/50) 1 puff INH RQ12 [facility] Last Admin: 12/14/17 19:15 Dose: 1 puff - Labs Labs: 12/15/17 06:39 12/14/17 06:41 PT 10.8 SECONDS (9.7-12.2) 12/04/17 09:38 INR 1.0 12/04/17 09:38 APTT 28 SECONDS (21-34) 12/04/17 09:38 - Constitutional Appears: Non-toxic, No Acute Distress - Head Exam Head Exam: ATRAUMATIC, NORMAL INSPECTION, NORMOCEPHALIC - Eye Exam Eye Exam: EOMI, Normal appearance - ENT Exam ENT Exam: Mucous Membranes Moist, Normal Exam - Neck Exam Neck Exam: Full ROM, Normal Inspection - Respiratory Exam Respiratory Exam: NORMAL BREATHING PATTERN (on O2 via NC) - GI/Abdominal Exam GI & Abdominal Exam: Distended, Soft. absent: Firm, Guarding, Rigid, Tenderness Additional comments: RLQ w/open wound draining feculant material into ostomy bag - Extremities Exam Extremities Exam: Normal Inspection - Neurological Exam Neurological Exam: Alert, Awake, Oriented x3 - Psychiatric Exam Psychiatric exam: Normal Affect, Normal Mood - Skin Skin Exam: Dry, Normal Color, Warm Assessment and Plan - Assessment and Plan (Free Text) Assessment: 67M s/p ileostomy reversal POD#8 Plan: Cont colostomy bag to fistula- monitor output Cont reg diet OOBTC Encourage IS use Further mgmt as per primary team Will ALEJANDRA attending Cyndi, PGY-1
[2017-12-15] MEDS: Fluticasone-Salmeterol 250-50mcg Diskus INH SCH ×2 (07:17→20:02)
[2017-12-15 07:24] LABS: ALBUMIN 2.9 g/dL (3.5-5.0); ALT/SGPT 69 U/L (21-72); AST/SGOT 49 U/L (17-59); BLOOD UREA NITROGEN < 2 mg/dL (9-20); CALCIUM 7.8 mg/dl (8.6-10.4); GFR AFRICAN-AMERICAN > 60; GFR NON-AFRICAN AMERICAN > 60
--- NOTE | 2017-12-15 08:57 | CP.PCM.PN ---
Subjective - Date & Time of Evaluation Date of Evaluation: 12/15/17 Time of Evaluation: 18:00 - Subjective Subjective: Pt seen and examined at bedside, is less tacypneac, less tacycardic, he is more alert, 5 loose bowel mon]vement pending c.diff stool, colostomy site is open s/ p reversal, on IV fluids Objective - Vital Signs/Intake and Output Vital Signs (last 24 hours): Temp Pulse Resp BP Pulse Ox 99.6 F 117 H 22 110/71 95 12/15/17 04:00 12/15/17 06:00 12/15/17 06:00 12/15/17 04:06 12/15/17 04:06 Intake and Output: 12/15/17 12/15/17 06:59 18:59 Intake Total 1350 100 Output Total 500 Balance 850 100 - Medications Medications: Current Medications Albuterol/Ipratropium (Duoneb 3 Mg/0.5 Mg (3 Ml) Ud) 3 ml INH RQ6 [facility] Last Admin: 12/15/17 07:17 Dose: 3 ml Diltiazem HCl (Cardizem) 90 mg PO TID [facility] Last Admin: 12/14/17 17:40 Dose: 90 mg Enoxaparin Sodium (Lovenox) 40 mg SC DAILY [facility] Insulin Aspart (Novolog) 0 unit SC ACHS [facility] PRN Reason: Protocol Last Admin: 12/14/17 22:00 Dose: Not Given Montelukast Sodium (Singulair) 10 mg PO HS [facility] Last Admin: 12/14/17 22:14 Dose: 10 mg Morphine Sulfate (Morphine) 2 mg IVP Q4 PRN PRN Reason: Pain, moderate (4-7) Last Admin: 12/15/17 06:50 Dose: 2 mg Multivitamins (Hexavitamin) 1 tab PO DAILY [facility] Last Admin: 12/14/17 09:43 Dose: 1 tab Pantoprazole Sodium (Protonix Ec Tab) 40 mg PO DAILY [facility] Last Admin: 12/14/17 09:43 Dose: 40 mg Potassium Chloride (K-Dur 20 Meq Er Tab) 40 meq PO DAILY [facility] Last Admin: 12/14/17 09:45 Dose: 40 meq Roflumilast (Daliresp) 500 mcg PO DAILY [facility] Last Admin: 12/14/17 09:43 Dose: 500 mcg Fluticasone/Salmeterol (Advair Diskus 250/50) 1 puff INH RQ12 [facility] Last Admin: 12/15/17 07:17 Dose: 1 puff - Labs Labs: 12/15/17 06:39 12/15/17 06:38 PT 10.8 SECONDS (9.7-12.2) 12/04/17 09:38 INR 1.0 12/04/17 09:38 APTT 28 SECONDS (21-34) 12/04/17 09:38 - Constitutional Appears: No Acute Distress, Chronically Ill - Head Exam Head Exam: ATRAUMATIC, NORMAL INSPECTION, NORMOCEPHALIC - Eye Exam Eye Exam: EOMI, Normal appearance, PERRL Pupil Exam: NORMAL ACCOMODATION, PERRL - Respiratory Exam Respiratory Exam: Clear to Ausculation Bilateral, NORMAL BREATHING PATTERN - Cardiovascular Exam Cardiovascular Exam: REGULAR RHYTHM, +S1, +S2. absent: Murmur - GI/Abdominal Exam GI & Abdominal Exam: Soft, Normal Bowel Sounds. absent: Tenderness Assessment and Plan (1) History of colostomy reversal Status: Acute (2) COPD exacerbation Status: Acute (3) BiPAP (biphasic positive airway pressure) dependence Status: Acute (4) Acute and chronic respiratory failure ([id number]) Status: Acute (5) Colostomy complication Status: Acute
[2017-12-15] MEDS: Pantoprazole 40 mg EC Tab PO SCH (10:59)
[2017-12-15] MEDS: Enoxaparin 40 mg Syringe SC SCH (10:59)
[2017-12-15] MEDS: Multiple Vitamins Tab PO SCH (10:59)
[2017-12-15] MEDS: (Novolog) Insulin Aspart, Recombinant 100 u/ml 10 ml vial SC SCH ×3 (11:00→21:38)
[2017-12-15] MEDS: Potassium Chloride 20 mEq ER Tab PO SCH (11:00)
--- NOTE | 2017-12-15 21:18 | PN ---
DATE: 12/15/2017 SUBJECTIVE: The patient denies any chest pain. He is comfortable in bed. He is tachycardiac on the monitor. Venous Doppler of the lower extremity was performed yesterday and preliminary report is negative for DVT. PHYSICAL EXAMINATION: VITAL SIGNS: Blood pressure 110/71, heart rate 110, temperature 99.6, respirations 15. HEENT: Pale conjunctivae. CHEST: Clear. HEART: S1, S2 regular. EXTREMITIES: No pedal edema. LABORATORY DATA: SMA-7 within normal limits except for glucose of 164, BUN of 2 and creatinine 0.6. Today's hemoglobin and hematocrit 9.8 and 29.5, white count 14.3, platelet count 293,000. Official report of venous Doppler of the lower extremity, no DVT. ASSESSMENT: 1. Status post closure of ileostomy. 2. Sinus tachycardia. 3. Chronic obstructive lung disease. 4. Anemia. RECOMMENDATIONS: Continue current Cardizem at 90 mg t.i.d. Continue K-Dur at 40 mEq orally once a day. Subcutaneous Lovenox at 40 mg subcutaneous once a day, Singulair 10 mg q.h.s. Mukesh Correia MD
[2017-12-16] MEDS: Albuterol-Ipratrop 3 mg / 0.5 (3 ml) UD INH SCH ×3 (01:07→13:00)
[2017-12-16] MEDS: Morphine 4 MG/ML VIAL IVP PRN ×5 (02:28→22:17)
--- NOTE | 2017-12-16 03:12 | CP.PCM.PN ---
Subjective - Date & Time of Evaluation Date of Evaluation: 12/16/17 Time of Evaluation: 17:00 - Subjective Subjective: pt seen and examined at bedside Objective - Vital Signs/Intake and Output Vital Signs (last 24 hours): Temp Pulse Resp BP Pulse Ox 98 F 122 H 17 121/73 95 12/15/17 20:00 12/16/17 00:33 12/15/17 20:00 12/15/17 20:06 12/15/17 20:00 Intake and Output: 12/15/17 12/16/17 18:59 06:59 Intake Total 350 Output Total 600 150 Balance -250 -150 - Medications Medications: Current Medications Albuterol/Ipratropium (Duoneb 3 Mg/0.5 Mg (3 Ml) Ud) 3 ml INH RQ6 [facility] Last Admin: 12/16/17 01:07 Dose: 3 ml Diltiazem HCl (Cardizem) 90 mg PO TID [facility] Last Admin: 12/15/17 18:39 Dose: 90 mg Enoxaparin Sodium (Lovenox) 40 mg SC DAILY [facility] Last Admin: 12/15/17 10:59 Dose: 40 mg Insulin Aspart (Novolog) 0 unit SC ACHS [facility] PRN Reason: Protocol Last Admin: 12/15/17 21:38 Dose: Not Given Montelukast Sodium (Singulair) 10 mg PO HS [facility] Last Admin: 12/15/17 21:19 Dose: 10 mg Morphine Sulfate (Morphine) 2 mg IVP Q4 PRN PRN Reason: Pain, moderate (4-7) Last Admin: 12/16/17 02:28 Dose: 2 mg Multivitamins (Hexavitamin) 1 tab PO DAILY [facility] Last Admin: 12/15/17 10:59 Dose: 1 tab Pantoprazole Sodium (Protonix Ec Tab) 40 mg PO DAILY [facility] Last Admin: 12/15/17 10:59 Dose: 40 mg Potassium Chloride (K-Dur 20 Meq Er Tab) 40 meq PO DAILY [facility] Last Admin: 12/15/17 11:00 Dose: 40 meq Roflumilast (Daliresp) 500 mcg PO DAILY [facility] Last Admin: 12/15/17 10:59 Dose: 500 mcg Fluticasone/Salmeterol (Advair Diskus 250/50) 1 puff INH RQ12 [facility] Last Admin: 12/15/17 20:02 Dose: 1 puff - Labs Labs: 12/15/17 06:39 12/15/17 06:38 PT 10.8 SECONDS (9.7-12.2) 12/04/17 09:38 INR 1.0 12/04/17 09:38 APTT 28 SECONDS (21-34) 12/04/17 09:38 Assessment and Plan (1) History of colostomy reversal Status: Acute (2) COPD exacerbation Status: Acute (3) BiPAP (biphasic positive airway pressure) dependence Status: Acute (4) Acute and chronic respiratory failure ([id number]) Status: Acute (5) Colostomy complication Status: Acute
[2017-12-16 06:36] LABS: HEMOGLOBIN 9.6 g/dL (12.0-18.0); MEAN CELL VOLUME 70.8 fL (80.0-94.0); MEAN CORPUSCULAR HEMOGLOBIN 22.1 pg (27.0-31.0); MEAN CORPUSCULAR HGB CONC 31.2 g/dL (33.0-37.0); MEAN PLATELET VOLUME 8.3 fL (7.2-11.7); RBC 4.36 Mil/uL (4.40-5.90); RED CELL DISTRIBUTION WIDTH 17.9 % (11.5-14.5); WHITE BLOOD COUNT 13.6 K/uL (4.8-10.8)
[2017-12-16 06:52] LABS: BLOOD UREA NITROGEN 3 mg/dL (9-20); CALCIUM 8.1 mg/dl (8.6-10.4); GFR AFRICAN-AMERICAN > 60; GFR NON-AFRICAN AMERICAN > 60
--- NOTE | 2017-12-16 07:12 | CP.PCM.PN ---
Subjective - Date & Time of Evaluation Date of Evaluation: 12/16/17 Time of Evaluation: 07:09 - Subjective Subjective: surgery: Dr. Nieto Patient has no complaints at this time. Per nursing fistula still with stool liquid output. Objective - Vital Signs/Intake and Output Vital Signs (last 24 hours): Temp Pulse Resp BP Pulse Ox 98.9 F 119 H 20 111/67 97 12/16/17 04:00 12/16/17 05:20 12/16/17 04:00 12/16/17 03:55 12/16/17 04:00 Intake and Output: 12/16/17 12/16/17 06:59 18:59 Output Total 150 Balance -150 - Medications Medications: Current Medications Albuterol/Ipratropium (Duoneb 3 Mg/0.5 Mg (3 Ml) Ud) 3 ml INH RQ6 [facility] Last Admin: 12/16/17 01:07 Dose: 3 ml Diltiazem HCl (Cardizem) 90 mg PO TID [facility] Last Admin: 12/15/17 18:39 Dose: 90 mg Enoxaparin Sodium (Lovenox) 40 mg SC DAILY [facility] Last Admin: 12/15/17 10:59 Dose: 40 mg Insulin Aspart (Novolog) 0 unit SC ACHS [facility] PRN Reason: Protocol Last Admin: 12/15/17 21:38 Dose: Not Given Montelukast Sodium (Singulair) 10 mg PO HS [facility] Last Admin: 12/15/17 21:19 Dose: 10 mg Morphine Sulfate (Morphine) 2 mg IVP Q4 PRN PRN Reason: Pain, moderate (4-7) Last Admin: 12/16/17 02:28 Dose: 2 mg Multivitamins (Hexavitamin) 1 tab PO DAILY [facility] Last Admin: 12/15/17 10:59 Dose: 1 tab Pantoprazole Sodium (Protonix Ec Tab) 40 mg PO DAILY [facility] Last Admin: 12/15/17 10:59 Dose: 40 mg Potassium Chloride (K-Dur 20 Meq Er Tab) 40 meq PO DAILY [facility] Last Admin: 12/15/17 11:00 Dose: 40 meq Roflumilast (Daliresp) 500 mcg PO DAILY [facility] Last Admin: 12/15/17 10:59 Dose: 500 mcg Fluticasone/Salmeterol (Advair Diskus 250/50) 1 puff INH RQ12 [facility] Last Admin: 12/15/17 20:02 Dose: 1 puff - Labs Labs: 12/16/17 06:24 12/16/17 06:21 PT 10.8 SECONDS (9.7-12.2) 12/04/17 09:38 INR 1.0 12/04/17 09:38 APTT 28 SECONDS (21-34) 12/04/17 09:38 - Constitutional Appears: Chronically Ill - Head Exam Head Exam: ATRAUMATIC, NORMOCEPHALIC - Eye Exam Eye Exam: EOMI, Normal appearance - ENT Exam ENT Exam: Mucous Membranes Moist - Respiratory Exam Respiratory Exam: NORMAL BREATHING PATTERN. absent: Respiratory Distress - Cardiovascular Exam Cardiovascular Exam: REGULAR RHYTHM. absent: Tachycardia - GI/Abdominal Exam GI & Abdominal Exam: Distended, Soft. absent: Tenderness Additional comments: RLQ incisional wound w/ ostomy bag coverage, sucus like fluid output. skin excoriation that is exposed - Extremities Exam Extremities Exam: absent: Calf Tenderness Assessment and Plan - Assessment and Plan (Free Text) Assessment: 67 y/o male s/p ileostomy reversal POD10 w/ fistula Plan: -cont lo0cal wound care with ostomy appliance, monitor output -skin around wound should be protected with ostomy -cont diet -wound care consult -OOB -medical management per primary -further recs per Dr. Emilia Lai PGY3
[2017-12-16] MEDS: (Novolog) Insulin Aspart, Recombinant 100 u/ml 10 ml vial SC SCH ×4 (07:30→21:55)
[2017-12-16] MEDS: Enoxaparin 40 mg Syringe SC SCH (11:01)
[2017-12-16] MEDS: Potassium Chloride 20 mEq ER Tab PO SCH (11:02)
[2017-12-16] MEDS: Multiple Vitamins Tab PO SCH (11:02)
[2017-12-16] MEDS: Pantoprazole 40 mg EC Tab PO SCH (11:02)
--- NOTE | 2017-12-16 11:04 | CARD ---
APPROVED REPORT EKG Measurement Heart [id number] <Conclusion> Sinus tachycardia Otherwise normal ECG
[2017-12-16] MEDS: Fluticasone-Salmeterol 250-50mcg Diskus INH SCH ×2 (13:00→20:22)
--- NOTE | 2017-12-16 15:18 | CP.PCM.PN ---
Subjective - Date & Time of Evaluation Date of Evaluation: 12/16/17 Time of Evaluation: 15:15 - Subjective Subjective: issues discussed with patient has anastomotic fistula breathing ok no intrabdominal collections had multiple bm per rectum and passing flatus plan at present is monitoring fistula is not high output will allow po feedings and ostomy drainage no plans for re-intervention at present Objective - Vital Signs/Intake and Output Vital Signs (last 24 hours): Temp Pulse Resp BP Pulse Ox 98.4 F 146 H 20 116/77 92 L 12/16/17 12:00 12/16/17 12:00 12/16/17 12:00 12/16/17 12:00 12/16/17 12:00 Intake and Output: 12/16/17 12/16/17 06:59 18:59 Intake Total 350 150 Output Total 950 Balance -600 150 - Medications Medications: Current Medications Albuterol/Ipratropium (Duoneb 3 Mg/0.5 Mg (3 Ml) Ud) 3 ml INH RQ6 [facility] Last Admin: 12/16/17 13:00 Dose: 3 ml Diltiazem HCl (Cardizem) 90 mg PO TID [facility] Last Admin: 12/16/17 15:10 Dose: 90 mg Enoxaparin Sodium (Lovenox) 40 mg SC DAILY [facility] Last Admin: 12/16/17 11:01 Dose: 40 mg Potassium Chloride (Potassium Chloride 20 Meq/100 Ml) 20 meq in 100 mls @ 50 mls/hr IVPB ONCE ONE Stop: 12/16/17 16:54 Insulin Aspart (Novolog) 0 unit SC ACHS [facility] PRN Reason: Protocol Last Admin: 12/16/17 13:21 Dose: 2 unit Montelukast Sodium (Singulair) 10 mg PO HS [facility] Last Admin: 12/15/17 21:19 Dose: 10 mg Morphine Sulfate (Morphine) 2 mg IVP Q4 PRN PRN Reason: Pain, moderate (4-7) Last Admin: 12/16/17 12:26 Dose: 2 mg Multivitamins (Hexavitamin) 1 tab PO DAILY [facility] Last Admin: 12/16/17 11:02 Dose: 1 tab Pantoprazole Sodium (Protonix Ec Tab) 40 mg PO DAILY [facility] Last Admin: 12/16/17 11:02 Dose: 40 mg Potassium Chloride (K-Dur 20 Meq Er Tab) 40 meq PO DAILY [facility] Last Admin: 12/16/17 11:02 Dose: 40 meq Roflumilast (Daliresp) 500 mcg PO DAILY [facility] Last Admin: 12/16/17 11:02 Dose: 500 mcg Fluticasone/Salmeterol (Advair Diskus 250/50) 1 puff INH RQ12 [facility] Last Admin: 12/16/17 13:00 Dose: 1 puff - Labs Labs: 12/16/17 06:24 12/16/17 06:21 PT 10.8 SECONDS (9.7-12.2) 12/04/17 09:38 INR 1.0 12/04/17 09:38 APTT 28 SECONDS (21-34) 12/04/17 09:38
[2017-12-16] MEDS ORDERED: Potassium Chloride 20 mEq ER Tab PO ONE (16:19)
--- NOTE | 2017-12-16 18:59 | PN ---
DATE: SUBJECTIVE: The patient denies any chest pain. He is tachycardic at 140. No shortness of breath. PHYSICAL EXAMINATION: VITAL SIGNS: Blood pressure 116/67, heart rate 140, temperature 98.4, respirations 20. HEENT: Normocephalic. CHEST: Absent breath sounds over the bases. HEART: S1 and S2, regular. EXTREMITIES: No edema. LABORATORY DATA: SMA-7: Sodium 137, potassium 3.2, chloride 98, CO2 of 26, glucose 118, BUN 3, creatinine 0.5. Hemoglobin and hematocrit 9.6 and 30.9, white count 15.6, platelet count 189,000. ASSESSMENT: 1. Sinus tachycardia, which is physiologic due to the patient's ongoing multiple medical problems including advanced chronic obstructive pulmonary disease and possible infection. 2. Status post revision of ileostomy. 3. Uncontrolled diabetes mellitus. 4. Hypokalemia. RECOMMENDATIONS: The patient will be receiving K-Dur 40 mEq orally today. I will add 20 mEq intravenous replacement and continue current Cardizem at 90 mg t.i.d., Lovenox at 40 mg subcutaneous once a day. Obtain 12-lead EKG, obtain two sets of blood cultures. Mukesh Correia MD
[2017-12-17] MEDS: Morphine 4 MG/ML VIAL IVP PRN ×5 (02:53→21:27)
--- NOTE | 2017-12-17 07:17 | CP.PCM.PN ---
Subjective - Date & Time of Evaluation Date of Evaluation: 12/17/17 Time of Evaluation: 06:50 - Subjective Subjective: Surgery- Dr. Nieto Patient seen and examined at bedside this AM. No acute events overnight. Resting comfortably. Stool drainage out of old ileostomy site. Denies pain. Tolerating PO diet. Having regular BM per rectum and passing flatus. Denies fevers, chills, chest pain shortness of breath. Currently on BiPAP overnight. Objective - Vital Signs/Intake and Output Vital Signs (last 24 hours): Temp Pulse Resp BP Pulse Ox 96 F L 117 H 20 109/69 97 12/17/17 04:00 12/17/17 04:00 12/17/17 04:00 12/17/17 04:00 12/17/17 04:00 Intake and Output: 12/17/17 12/17/17 06:59 18:59 Intake Total 10 Output Total 11 Balance -1 - Medications Medications: Current Medications Alprazolam (Xanax) 0.5 mg PO Q12H [facility] Last Admin: 12/16/17 22:26 Dose: Not Given Diltiazem HCl (Cardizem) 90 mg PO TID [facility] Last Admin: 12/16/17 17:48 Dose: 90 mg Enoxaparin Sodium (Lovenox) 40 mg SC DAILY [facility] Last Admin: 12/16/17 11:01 Dose: 40 mg Insulin Aspart (Novolog) 0 unit SC [facility] PRN Reason: Protocol Last Admin: 12/16/17 21:55 Dose: Not Given Montelukast Sodium (Singulair) 10 mg PO HS [facility] Last Admin: 12/16/17 22:17 Dose: 10 mg Morphine Sulfate (Morphine) 2 mg IVP Q4 PRN PRN Reason: Pain, moderate (4-7) Last Admin: 12/17/17 02:53 Dose: 2 mg Multivitamins (Hexavitamin) 1 tab PO DAILY [facility] Last Admin: 12/16/17 11:02 Dose: 1 tab Pantoprazole Sodium (Protonix Ec Tab) 40 mg PO DAILY [facility] Last Admin: 12/16/17 11:02 Dose: 40 mg Potassium Chloride (K-Dur 20 Meq Er Tab) 40 meq PO DAILY [facility] Last Admin: 12/16/17 11:02 Dose: 40 meq Roflumilast (Daliresp) 500 mcg PO DAILY [facility] Last Admin: 12/16/17 11:02 Dose: 500 mcg Fluticasone/Salmeterol (Advair Diskus 250/50) 1 puff INH RQ12 [facility] Last Admin: 12/16/17 20:22 Dose: Not Given - Labs Labs: 12/16/17 06:24 12/16/17 06:21 PT 10.8 SECONDS (9.7-12.2) 12/04/17 09:38 INR 1.0 12/04/17 09:38 APTT 28 SECONDS (21-34) 12/04/17 09:38 - Constitutional Appears: Non-toxic, No Acute Distress - Head Exam Head Exam: ATRAUMATIC - Eye Exam Eye Exam: EOMI. absent: Scleral icterus - Respiratory Exam Respiratory Exam: NORMAL BREATHING PATTERN. absent: Accessory Muscle Use, Respiratory Distress - Cardiovascular Exam Cardiovascular Exam: +S1, +S2. absent: Bradycardia, Tachycardia - GI/Abdominal Exam GI & Abdominal Exam: Soft. absent: Distended, Firm, Tenderness Additional comments: stool out of old ileostomy site - Extremities Exam Extremities Exam: absent: Calf Tenderness - Neurological Exam Neurological Exam: Alert, Awake, Oriented x3 - Skin Skin Exam: Intact, Warm Assessment and Plan - Assessment and Plan (Free Text) Assessment: 67M POD#11 s/p ileostomy reversal; w/ anastomotic fistula Plan: - NPO after midnight - I&D of giovanna-rectal abscess tomorrow - local wound care- bag over incision site - monitor output - encourage OOB and IC use - discussed w/ Dr. Nieto surgical attending PGY1
[2017-12-17] MEDS: Fluticasone-Salmeterol 250-50mcg Diskus INH SCH ×2 (07:47→19:02)
[2017-12-17] MEDS: (Novolog) Insulin Aspart, Recombinant 100 u/ml 10 ml vial SC SCH ×4 (08:33→21:31)
[2017-12-17] MEDS: Pantoprazole 40 mg EC Tab PO SCH (09:41)
[2017-12-17] MEDS: Multiple Vitamins Tab PO SCH (09:41)
[2017-12-17] MEDS: Potassium Chloride 20 mEq ER Tab PO SCH (09:42)
[2017-12-17] MEDS: Enoxaparin 40 mg Syringe SC SCH (09:42)
[2017-12-17 11:11] LABS: HEMOGLOBIN 10.1 g/dL (12.0-18.0); MEAN CELL VOLUME 70.1 fL (80.0-94.0); MEAN CORPUSCULAR HEMOGLOBIN 23.2 pg (27.0-31.0); MEAN CORPUSCULAR HGB CONC 33.1 g/dL (33.0-37.0); MEAN PLATELET VOLUME 8.1 fL (7.2-11.7); RBC 4.36 Mil/uL (4.40-5.90); RED CELL DISTRIBUTION WIDTH 17.7 % (11.5-14.5); WHITE BLOOD COUNT 15.4 K/uL (4.8-10.8)
[2017-12-17 11:51] LABS: BLOOD UREA NITROGEN 4 mg/dL (9-20); CALCIUM 8.5 mg/dl (8.6-10.4); GFR AFRICAN-AMERICAN > 60; GFR NON-AFRICAN AMERICAN > 60
--- NOTE | 2017-12-17 15:32 | CP.PCM.PN ---
Subjective - Date & Time of Evaluation Date of Evaluation: 12/17/17 Time of Evaluation: 15:32 Objective - Vital Signs/Intake and Output Vital Signs (last 24 hours): Temp Pulse Resp BP Pulse Ox 98.1 F 118 H 20 123/70 94 L 12/17/17 07:30 12/17/17 12:30 12/17/17 09:42 12/17/17 09:42 12/17/17 09:42 Intake and Output: 12/17/17 12/17/17 06:59 18:59 Intake Total 10 Output Total 11 Balance -1 - Medications Medications: Current Medications Alprazolam (Xanax) 0.5 mg PO Q12H [facility] Last Admin: 12/17/17 09:41 Dose: 0.5 mg Diltiazem HCl (Cardizem) 90 mg PO TID [facility] Last Admin: 12/17/17 13:27 Dose: 90 mg Enoxaparin Sodium (Lovenox) 40 mg SC DAILY [facility] Last Admin: 12/17/17 09:42 Dose: 40 mg Sodium Chloride (Sodium Chloride 0.9%) 1,000 mls @ 100 mls/hr IV .Q10H [facility] Ampicillin 2 gm/ Sodium (Chloride) 100 mls @ 200 mls/hr IVPB Q6H [facility] PRN Reason: Protocol Ciprofloxacin (Cipro 400mg/200ml Dsw) 400 mg in 200 mls @ 133 mls/hr IVPB Q12H [facility] PRN Reason: Protocol Insulin Aspart (Novolog) 0 unit SC ACHS [facility] PRN Reason: Protocol Last Admin: 12/17/17 11:45 Dose: Not Given Montelukast Sodium (Singulair) 10 mg PO HS [facility] Last Admin: 12/16/17 22:17 Dose: 10 mg Morphine Sulfate (Morphine) 2 mg IVP Q4 PRN PRN Reason: Pain, moderate (4-7) Last Admin: 12/17/17 12:23 Dose: 2 mg Multivitamins (Hexavitamin) 1 tab PO DAILY [facility] Last Admin: 12/17/17 09:41 Dose: 1 tab Pantoprazole Sodium (Protonix Ec Tab) 40 mg PO DAILY [facility] Last Admin: 12/17/17 09:41 Dose: 40 mg Potassium Chloride (K-Dur 20 Meq Er Tab) 40 meq PO DAILY [facility] Last Admin: 12/17/17 09:42 Dose: 40 meq Roflumilast (Daliresp) 500 mcg PO DAILY [facility] Last Admin: 12/17/17 09:41 Dose: 500 mcg Fluticasone/Salmeterol (Advair Diskus 250/50) 1 puff INH RQ12 [facility] Last Admin: 12/17/17 07:47 Dose: 1 puff - Labs Labs: 12/17/17 11:00 12/17/17 11:00 PT 10.8 SECONDS (9.7-12.2) 12/04/17 09:38 INR 1.0 12/04/17 09:38 APTT 28 SECONDS (21-34) 12/04/17 09:38
--- NOTE | 2017-12-17 16:24 | CARD ---
APPROVED REPORT EKG Measurement Heart [id number] 130P [id number] <Conclusion> Sinus tachycardia Otherwise normal ECG
--- NOTE | 2017-12-17 17:00 | CP.PCM.PN ---
Subjective - Date & Time of Evaluation Date of Evaluation: 12/17/17 Time of Evaluation: 09:00 - Subjective Subjective: Patient was seen and examined at bedside resting comfortably but notably still tachycardic. Denies shortness of breath, afebrile. His breathing is stable on NC. His only complaint today was abdominal pain. 1. Acute COPD exacerbation, resolved - Saturating 97-100% on 3L NC - BiPAP settings to 07/18 - CXR 12/04: bibasilar atelectasis - CBC 12/10: WBC 13.7, trending down - ABG 12/04: 7.40/45/126/27 - duonebs Objective - Vital Signs/Intake and Output Vital Signs (last 24 hours): Temp Pulse Resp BP Pulse Ox 98.3 F 118 H 20 101/70 97 12/17/17 16:08 12/17/17 16:08 12/17/17 16:08 12/17/17 16:08 12/17/17 16:08 Intake and Output: 12/17/17 12/17/17 06:59 18:59 Intake Total 10 Output Total 11 Balance -1 - Medications Medications: Current Medications Alprazolam (Xanax) 0.5 mg PO Q12H [facility] Last Admin: 12/17/17 09:41 Dose: 0.5 mg Diltiazem HCl (Cardizem) 90 mg PO TID [facility] Last Admin: 12/17/17 13:27 Dose: 90 mg Enoxaparin Sodium (Lovenox) 40 mg SC DAILY [facility] Last Admin: 12/17/17 09:42 Dose: 40 mg Sodium Chloride (Sodium Chloride 0.9%) 1,000 mls @ 100 mls/hr IV .Q10H [facility] Ampicillin 2 gm/ Sodium (Chloride) 100 mls @ 200 mls/hr IVPB Q6H [facility] PRN Reason: Protocol Ciprofloxacin (Cipro 400mg/200ml Dsw) 400 mg in 200 mls @ 133 mls/hr IVPB Q12H [facility] PRN Reason: Protocol Insulin Aspart (Novolog) 0 unit SC ACHS [facility] PRN Reason: Protocol Last Admin: 12/17/17 11:45 Dose: Not Given Montelukast Sodium (Singulair) 10 mg PO HS [facility] Last Admin: 12/16/17 22:17 Dose: 10 mg Morphine Sulfate (Morphine) 2 mg IVP Q4 PRN PRN Reason: Pain, moderate (4-7) Last Admin: 12/17/17 12:23 Dose: 2 mg Multivitamins (Hexavitamin) 1 tab PO DAILY [facility] Last Admin: 12/17/17 09:41 Dose: 1 tab Pantoprazole Sodium (Protonix Ec Tab) 40 mg PO DAILY [facility] Last Admin: 12/17/17 09:41 Dose: 40 mg Potassium Chloride (K-Dur 20 Meq Er Tab) 40 meq PO DAILY [facility] Last Admin: 12/17/17 09:42 Dose: 40 meq Roflumilast (Daliresp) 500 mcg PO DAILY [facility] Last Admin: 12/17/17 09:41 Dose: 500 mcg Fluticasone/Salmeterol (Advair Diskus 250/50) 1 puff INH RQ12 [facility] Last Admin: 12/17/17 07:47 Dose: 1 puff - Labs Labs: 12/17/17 11:00 12/17/17 11:00 PT 10.8 SECONDS (9.7-12.2) 12/04/17 09:38 INR 1.0 12/04/17 09:38 APTT 28 SECONDS (21-34) 12/04/17 09:38 Assessment and Plan (1) COPD (chronic obstructive pulmonary disease) Status: Acute
[2017-12-17] MEDS: AMPicillin 2 GM in Sodium Chloride 100 ML IVPB SCH ×2 (17:14→21:30)
[2017-12-17] MEDS: Ciprofloxacin 400mg/200ml D5W 400 MG/200 ML BAG IVPB SCH (17:15)
--- NOTE | 2017-12-17 19:16 | PN ---
DATE: SUBJECTIVE: The patient denied any chest pain. The patient was noted to have a new thigh abscess. PHYSICAL EXAMINATION: VITAL SIGNS: Blood pressure 127/70, heart rate 121, temperature 98.1, respirations 20. HEENT: Normocephalic. CHEST: Clear. HEART: S1 and S2, regular. EXTREMITIES: No edema. LABORATORY DATA: Hemoglobin and hematocrit 10.1 and 30.6. White count 15.4 and platelet count 386,000. SMA-7: Sodium 139, potassium 3.2, chloride 97, CO2 is 30, glucose 84, BUN 4, creatinine 0.6. ASSESSMENT: 1. Sinus tachycardia which is physiologic due to the patient's ongoing medical problems including chronic obstructive pulmonary disease and new abscess. 2. Hypertension. 3. Anemia. 4. Hypokalemia. 5. Uncontrolled diabetes mellitus. RECOMMENDATIONS: Case was discussed with the WRAPAROUND FACILITATOR. Continue current Cardizem at 90 mg t.i.d. Increase K-Dur to 40 mEq orally daily. Continue subcutaneous Lovenox at 40 mg once a day. The patient is also receiving IV potassium replacement 20 mEq. The patient can undergo incision and drainage from the cardiac point of view with postoperative telemetry monitoring. Mukesh Correia MD
[2017-12-17] MEDS ORDERED: Sodium Chloride 0.9% 1,000 ML IV SCH (23:59)
--- NOTE | 2017-12-18 01:07 | CP.PCM.PN ---
Subjective - Date & Time of Evaluation Date of Evaluation: 12/17/17 Time of Evaluation: 16:00 - Subjective Subjective: Patient was seen and examined at bedside resting comfortably but notably still tachycardic. Denies shortness of breath, afebrile. His breathing is stable on NC. His only complaint today was abdominal pain. Objective - Vital Signs/Intake and Output Vital Signs (last 24 hours): Temp Pulse Resp BP Pulse Ox 98.3 F 116 H 20 116/76 97 12/17/17 16:08 12/17/17 23:30 12/17/17 16:08 12/17/17 19:22 12/17/17 16:08 Intake and Output: 12/17/17 12/18/17 18:59 06:59 Intake Total 640 Output Total 460 Balance 180 - Medications Medications: Current Medications Alprazolam (Xanax) 0.5 mg PO Q12H [facility] Last Admin: 12/17/17 21:30 Dose: 0.5 mg Diltiazem HCl (Cardizem) 90 mg PO TID [facility] Last Admin: 12/17/17 19:21 Dose: 90 mg Enoxaparin Sodium (Lovenox) 40 mg SC DAILY [facility] Last Admin: 12/17/17 09:42 Dose: 40 mg Sodium Chloride (Sodium Chloride 0.9%) 1,000 mls @ 100 mls/hr IV .Q10H [facility] Last Admin: 12/18/17 00:24 Dose: 100 mls/hr Ampicillin 2 gm/ Sodium (Chloride) 100 mls @ 200 mls/hr IVPB Q6H [facility] PRN Reason: Protocol Last Admin: 12/17/17 21:30 Dose: 200 mls/hr Ciprofloxacin (Cipro 400mg/200ml Dsw) 400 mg in 200 mls @ 133 mls/hr IVPB Q12H [facility] PRN Reason: Protocol Last Admin: 12/17/17 17:15 Dose: 133 mls/hr Insulin Aspart (Novolog) 0 unit SC ACHS [facility] PRN Reason: Protocol Last Admin: 12/17/17 21:31 Dose: Not Given Montelukast Sodium (Singulair) 10 mg PO HS [facility] Last Admin: 12/17/17 21:30 Dose: 10 mg Morphine Sulfate (Morphine) 2 mg IVP Q4 PRN PRN Reason: Pain, moderate (4-7) Last Admin: 12/17/17 21:27 Dose: 2 mg Multivitamins (Hexavitamin) 1 tab PO DAILY [facility] Last Admin: 12/17/17 09:41 Dose: 1 tab Pantoprazole Sodium (Protonix Ec Tab) 40 mg PO DAILY [facility] Last Admin: 12/17/17 09:41 Dose: 40 mg Potassium Chloride (K-Dur 20 Meq Er Tab) 40 meq PO DAILY [facility] Last Admin: 12/17/17 09:42 Dose: 40 meq Roflumilast (Daliresp) 500 mcg PO DAILY [facility] Last Admin: 12/17/17 09:41 Dose: 500 mcg Fluticasone/Salmeterol (Advair Diskus 250/50) 1 puff INH RQ12 [facility] Last Admin: 12/17/17 19:02 Dose: 1 puff - Labs Labs: 12/17/17 11:00 12/17/17 11:00 PT 10.8 SECONDS (9.7-12.2) 12/04/17 09:38 INR 1.0 12/04/17 09:38 APTT 28 SECONDS (21-34) 12/04/17 09:38 - Constitutional Appears: No Acute Distress - Head Exam Head Exam: ATRAUMATIC, NORMAL INSPECTION, NORMOCEPHALIC - Eye Exam Eye Exam: EOMI, Normal appearance, PERRL Pupil Exam: NORMAL ACCOMODATION, PERRL - Respiratory Exam Respiratory Exam: Decreased Breath Sounds, Rales, Wheezes - Cardiovascular Exam Cardiovascular Exam: REGULAR RHYTHM, +S1, +S2. absent: Murmur - GI/Abdominal Exam GI & Abdominal Exam: Soft, Normal Bowel Sounds. absent: Tenderness Assessment and Plan (1) History of colostomy reversal Status: Acute (2) COPD exacerbation Assessment & Plan: 1. Acute COPD exacerbation, resolved - Saturating 97-100% on 3L NC - BiPAP settings to 07/18 - CXR 12/04: bibasilar atelectasis - CBC 12/10: WBC 13.7, trending down - ABG 12/04: 7.40/45/126/27 - duonebs Status: Acute (3) BiPAP (biphasic positive airway pressure) dependence Status: Acute (4) Acute and chronic respiratory failure ([id number]) Status: Acute (5) Colostomy complication Status: Acute
[2017-12-18] MEDS: AMPicillin 2 GM in Sodium Chloride 100 ML IVPB SCH ×4 (02:36→21:39)
[2017-12-18] MEDS: Ciprofloxacin 400mg/200ml D5W 400 MG/200 ML BAG IVPB SCH ×2 (02:37→16:11)
[2017-12-18] MEDS: Morphine 4 MG/ML VIAL IVP PRN ×5 (02:44→18:49)
[2017-12-18 06:28] LABS: HEMOGLOBIN 9.6 g/dL (12.0-18.0); MEAN CELL VOLUME 69.9 fL (80.0-94.0); MEAN CORPUSCULAR HEMOGLOBIN 23.2 pg (27.0-31.0); MEAN CORPUSCULAR HGB CONC 33.1 g/dL (33.0-37.0); RBC 4.14 Mil/uL (4.40-5.90); RED CELL DISTRIBUTION WIDTH 17.8 % (11.5-14.5); WHITE BLOOD COUNT 15.3 K/uL (4.8-10.8)
[2017-12-18 06:53] LABS: BLOOD UREA NITROGEN 2 mg/dL (9-20); CALCIUM 7.9 mg/dl (8.6-10.4); GFR AFRICAN-AMERICAN > 60; GFR NON-AFRICAN AMERICAN > 60
--- NOTE | 2017-12-18 07:03 | CON ---
DATE: HISTORY OF PRESENT ILLNESS: The patient is a 67-year-old [place] male with lower extremity contraction. He has COPD, admitted to the hospital, and I was called to see him because the CAT scan revealed that the catheter is sitting in the prostate, not in the bladder, it showed that the catheter which he has is in the prostatic fossa. The patient was draining but apparently had some pain, and when he pushed, the urine will go through the catheter. PHYSICAL EXAMINATION: Revealed suprapubic tenderness, prostate large. The patient contracted, cannot open his legs for anything except the nurse and the health care assistant who were holding the legs, when I did the exam. While the patient in his bed, the catheter removed, coude catheter inserted, and there was about 400 mL of clear urine drained. The catheter when it is removed, there is a clot and blood on the balloon and close to where indicates that it was in the prostatic fossa. The catheter was draining well. It is fixed to the leg in a way that he cannot pull it or accidentally displace it. IMPRESSION: Urinary retention, trauma to the ureter due to the balloon pulled to the prostatic fossa. Vicki Walker MD
[2017-12-18] MEDS: Fluticasone-Salmeterol 250-50mcg Diskus INH SCH ×2 (07:50→19:39)
[2017-12-18] MEDS ORDERED: Lactated Ringer's 1,000 ML IV SCH (08:00)
[2017-12-18] MEDS: (Novolog) Insulin Aspart, Recombinant 100 u/ml 10 ml vial SC SCH ×4 (08:12→21:39)
[2017-12-18] MEDS: Multiple Vitamins Tab PO SCH (09:00)
[2017-12-18] MEDS: Enoxaparin 40 mg Syringe SC SCH (09:00)
[2017-12-18] MEDS: Pantoprazole 40 mg EC Tab PO SCH (09:01)
[2017-12-18] MEDS: Potassium Chloride 20 mEq ER Tab PO SCH (09:09)
[2017-12-18] MEDS ORDERED: Lactated Ringer's 1,000 ML IV ONE (11:45)
[2017-12-18 11:55] LABS: BLOOD UREA NITROGEN 2 mg/dL (9-20); CALCIUM 7.9 mg/dl (8.6-10.4); GFR AFRICAN-AMERICAN > 60; GFR NON-AFRICAN AMERICAN > 60
--- NOTE | 2017-12-18 11:55 | CP.PCM.CON ---
History of Present Illness - History of Present Illness History of Present Illness: Palliative consult requested by juan diego MAS for goals of care discussion Patient is a 67 yo male admitted from Doctor's Emilia's office with complaints of shortness of breath and chest tightness. Patient has multiple visits to ER for the same complaints. VQ scan upon admission was negative for PE. Patient was recently admitted 10/2017 for sigmoid anastomosis surgery due to colon cancer. Ileostomy was created. On this admission Ct abd/pelvis was significant for SBO and on 12/06/17 patient had SBR with closure of illeostomy. In post op period patient developed fistula which was treated conservatively. Further more the abdominal wound got infected as well as blood. Both C&S came back positive. Cipro IV and Ampicillin IV on board. Today patient went to OR for resection of rectal/giovanna rectal abcess. Patient's admits having difficult time going trough this process. Palliative care was called for support. PMH: COPD,CHF, steroid induced DM, colon cancer, illeostomy creation Soc. Hx; Sally, has son and daughter, lives at home Fam. Hx: one brother in good health, parents Review of Systems - Constitutional Constitutional: Malaise - EENT Eyes: absent: As Per HPI, Blind Spots, Blurred Vision, Change in Vision, Decreased Night Vision, Diplopia, Discharge, Dry Eye, Exophthalmos, Floaters, Irritation, Itchy Eyes, Loss of Peripheral Vision, Pain, Photophobia, Requires Corrective Lenses, Sees Flashes, Spots in Vision, Tunnel Vision, Other Visual Disturbances, Loss of Vision, Other Ears: absent: As Per HPI, Decreased Hearing, Ear Discharge, Ear Pain, Tinnitus, Abnormal Hearing, Disequilibrium, Dizziness, Other Nose/Mouth/Throat: absent: As Per HPI, Epistaxis, Nasal Congestion, Nasal Discharge, Nasal Obstruction, Nasal Trauma, Nose Pain, Post Nasal Drip, Sinus Pain, Sinus Pressure, Bleeding Gums, Change in Voice, Dental Pain, Dry Mouth, Dysphagia, Halitosis, Hoarsness, Lip Swelling, Mouth Lesions, Mouth Pain, Odynophagia, Sore Throat, Throat Swelling, Tongue Swelling, Facial Pain, Neck Pain, Neck Mass, Other - Cardiovascular Cardiovascular: Dyspnea on Exertion - Respiratory Respiratory: Dyspnea on Exertion - Gastrointestinal Gastrointestinal: Abdominal Pain - Genitourinary Genitourinary: absent: As Per HPI, Change in Urinary Stream, Difficulty Urinating, Dysuria, Flank Pain, Hematuria, Pyuria, Nocturia, Urinary Incontinence, Urinary Frequency, Urinary Hesitance, Urinary Urgency, Voiding Freq/Small Amts, Freq UTI, Hx Renal/Bladder Calculi, Hx /Renal Surgery, Bladder Distension, Other - Musculoskeletal Musculoskeletal: Muscle Weakness - Integumentary Integumentary: Changing Lesions - Neurological Neurological: absent: As Per HPI, Abnormal Gait, Abnormal Hearing, Abnormal Movements, Abnormal Speech, Behavioral Changes, Burning Sensations, Confusion, Convulsions, Disequilibrium, Dizziness, Numbness, Focal Weakness, Frequent Falls , Headaches, Lack of Coordination, Loss of Vision, Memory Loss, Paresthesias, Radicular Pain, Restless Legs, Sensory Deficit, Syncope, Tingling, Tremor, Vertigo, Weakness, Other Visual Disturbances, Other - Psychiatric Psychiatric: absent: As Per HPI, Abnormal Sleep Pattern, Anhedonia, Anxiety, Auditory Hallucinations, Behavioral Changes, Change in Appetite, Change in Libido, Confusion, Depression, Difficulty Concentrating, Hallucinations, Homicidal Ideation, Hopelessness, Irritability, Memory Loss, Mood Swings, Panic Attacks, Paranoia, Suicidal Ideation, Visual Hallucinations, Tactile Hallucinations, Other - Endocrine Endocrine: absent: As Per HPI, Change in Body Appearance, Change in Libido, Cold Intolorance, Deepening of Voice, Excessive Sweating, Fatigue, Flushing, Heat Intolorance, Increase in Ring/Shoe/Hat Size, Palpitations, Polydipsia, Polyphagia, Polyuria, Other - Hematologic/Lymphatic Hematologic: absent: As Per HPI, Easy Bleeding, Easy Bruising, Lymphadenopathy, Other Past Patient History - Infectious Disease Hx of Infectious Diseases: None - Past Medical History & Family History Past Medical History?: Yes - Past Social History Smoking Status: Former Smoker - CARDIAC Hx Congestive Heart Failure: Yes - PULMONARY Hx Chronic Obstructive Pulmonary Disease (COPD): Yes - NEUROLOGICAL Hx Neurological Disorder: No HX Cerebrovascular Accident: No - HEENT Hx HEENT Problems: Yes Hx Cataracts: Yes (left cataract removed, r cataract) Hx Deafness: No Hx Difficulty Chewing: No Hx Epistaxis: No Hx Glaucoma: No Hx Macular Degeneration: No Other/Comment: wears eyeglasses for distance - RENAL Hx Chronic Kidney Disease: Yes Hx Kidney Stones: Yes - ENDOCRINE/METABOLIC 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 - MUSCULOSKELETAL/RHEUMATOLOGICAL Hx Arthritis: Yes - GASTROINTESTINAL Hx Gastritis: No - PSYCHIATRIC Hx Anxiety: Yes Hx Substance Use: No - SURGICAL HISTORY Hx Surgeries: Yes Hx Cataract Extraction: Yes (left eye, right eye) Hx Cardiac Catheterization: Yes (11/2015) Hx Eye Surgery: Yes Hx Pulmonary Surgery: Yes Other/Comment: colon resection with right ileostomy - ANESTHESIA Hx Anesthesia: Yes Hx Anesthesia Reactions: No Hx Malignant Hyperthermia: No Meds Allergies/Adverse Reactions: Allergies Allergy/AdvReac Type Severity Reaction Status Date / Time acetaminophen [From Tylenol] Allergy RASH Verified 12/04/17 09:01 FISH Allergy SWELLING Verified 12/04/17 09:01 shrimp Allergy SHORTNESS Verified 12/04/17 09:01 OF BREATH IV dye Allergy Severe ANAPHYLAXIS Uncoded 11/14/17 15:19 - Medications Medications: Current Medications Albuterol Sulfate (Albuterol 0.083% Inhal Dorothea (2.5 Mg/3 Ml) Ud) 2.5 mg INH RQ12 PRN PRN Reason: Shortness of Breath Alprazolam (Xanax) 0.5 mg PO Q12H [facility] Last Admin: 12/18/17 09:01 Dose: Not Given Diltiazem HCl (Cardizem) 90 mg PO TID [facility] Last Admin: 12/18/17 09:09 Dose: 90 mg Enoxaparin Sodium (Lovenox) 40 mg SC DAILY [facility] Last Admin: 12/18/17 09:00 Dose: Not Given Ampicillin 2 gm/ Sodium (Chloride) 100 mls @ 200 mls/hr IVPB Q6H [facility] PRN Reason: Protocol Last Admin: 12/18/17 09:26 Dose: 200 mls/hr Ciprofloxacin (Cipro 400mg/200ml Dsw) 400 mg in 200 mls @ 133 mls/hr IVPB Q12H [facility] PRN Reason: Protocol Last Admin: 12/18/17 02:37 Dose: 133 mls/hr Potassium Chloride (Potassium Chloride 20 Meq/100 Ml) 20 meq in 100 mls @ 50 mls/hr IVPB ONCE ONE Stop: 12/18/17 11:59 Last Admin: 12/18/17 10:14 Dose: 50 mls/hr Lactated Ringer's (Lactated Ringer's) 1,000 mls @ 75 mls/hr IV .[id number] [facility] Last Admin: 12/18/17 08:01 Dose: 75 mls/hr Potassium Chloride (Potassium Chloride 20 Meq/100 Ml) 20 meq in 100 mls @ 50 mls/hr IVPB ONCE ONE Stop: 12/18/17 13:59 Insulin Aspart (Novolog) 0 unit SC ACHS [facility] PRN Reason: Protocol Last Admin: 12/18/17 11:10 Dose: Not Given Montelukast Sodium (Singulair) 10 mg PO HS [facility] Last Admin: 12/17/17 21:30 Dose: 10 mg Morphine Sulfate (Morphine) 2 mg IVP Q4 PRN PRN Reason: Pain, moderate (4-7) Last Admin: 12/18/17 08:38 Dose: 2 mg Multivitamins (Hexavitamin) 1 tab PO DAILY [facility] Last Admin: 12/18/17 09:00 Dose: Not Given Pantoprazole Sodium (Protonix Ec Tab) 40 mg PO DAILY [facility] Last Admin: 12/18/17 09:01 Dose: Not Given Potassium Chloride (K-Dur 20 Meq Er Tab) 40 meq PO DAILY [facility] Last Admin: 12/18/17 09:09 Dose: 40 meq Roflumilast (Daliresp) 500 mcg PO DAILY [facility] Last Admin: 12/18/17 09:09 Dose: 500 mcg Fluticasone/Salmeterol (Advair Diskus 250/50) 1 puff INH RQ12 [facility] Last Admin: 12/18/17 07:50 Dose: 1 puff Physical Exam - Constitutional Appears: Chronically Ill - Head Exam Head Exam: ATRAUMATIC, NORMAL INSPECTION, NORMOCEPHALIC - Eye Exam Eye Exam: EOMI, Normal appearance, PERRL Pupil Exam: NORMAL ACCOMODATION, PERRL - ENT Exam ENT Exam: Mucous Membranes Dry, Normal Exam - Neck Exam Neck exam: Positive for: Normal Inspection - Respiratory Exam Respiratory Exam: Decreased Breath Sounds Additional comments: On BiPap - Cardiovascular Exam Cardiovascular Exam: Tachycardia - GI/Abdominal Exam GI & Abdominal Exam: Distended, Firm, Hypoactive Bowel Sounds Additional comments: right abdomen fistula drains fecal material - Rectal Exam Rectal Exam: Deferred - Exam Exam: NORMAL INSPECTION - Extremities Exam Extremities exam: Positive for: normal inspection - Back Exam Back exam: NORMAL INSPECTION - Neurological Exam Neurological exam: Alert, Oriented x3 - Psychiatric Exam Psychiatric exam: Anxious - Skin Skin Exam: Pallor Results - Vital Signs Recent Vital Signs: Last Vital Signs Temp 97.9 F 12/18/17 10:40 Pulse 102 H 12/18/17 10:40 Resp 20 12/18/17 10:40 BP 112/69 12/18/17 10:40 Pulse Ox 99 12/18/17 10:40 - Labs Result Diagrams: 12/18/17 06:17 12/18/17 06:17 Labs: Laboratory Results - last 24 hr 12/16/17 12/17/17 12/17/17 14:05 11:00 11:23 WBC RBC Hgb Hct MCV MCH MCHC RDW Plt Count MPV Sodium 139 Potassium 3.2 L Chloride 97 L Carbon Dioxide 30 Anion Gap 15 BUN 4 L Creatinine 0.6 L Est GFR ( Amer) > 60 Est GFR (Non-Af Amer) > 60 POC Glucose (mg/dL) 105 Random Glucose 84 Calcium 8.5 L C. difficile Ag & Toxin Negative 12/17/17 12/17/17 12/18/17 16:29 21:08 06:11 WBC RBC Hgb Hct MCV MCH MCHC RDW Plt Count MPV Sodium Potassium Chloride Carbon Dioxide Anion Gap BUN Creatinine Est GFR ( Amer) Est GFR (Non-Af Amer) POC Glucose (mg/dL) 130 H 168 H 165 H Random Glucose Calcium C. difficile Ag & Toxin 12/18/17 12/18/17 06:17 06:17 WBC 15.3 H RBC 4.14 L Hgb 9.6 L Hct 28.9 L MCV 69.9 L MCH 23.2 L MCHC 33.1 RDW 17.8 H Plt Count 409 H MPV 8.0 Sodium 138 Potassium 2.8 L Chloride 98 Carbon Dioxide 28 Anion Gap 15 BUN 2 L Creatinine 0.5 L Est GFR ( Amer) > 60 Est GFR (Non-Af Amer) > 60 POC Glucose (mg/dL) Random Glucose 161 H Calcium 7.9 L C. difficile Ag & Toxin Assessment & Plan - Assessment and Plan (Free Text) Assessment: Palliative consult Full Code, there is no Advance directive n the chart, PPS 30% I reviewed medical records, all diagnostic studies, examined patient in the bed just before he went to OR. Patient is alert and oriented X with BiPap on, looking very sick. Breathing is fast and shallow. Abdomen hard to touch, distended, rigid, condition guarded. Right upper quadrants fistula with colostomy appliance on, draining fecal material. Patient complains of abdominal pain. Morphine IV PRN on board. Patient moves freely all 4 extremities. BP 112/69, HR 102, afebrile. WBC 15.3, Hb 9.6. Goals of care discussed with Amirah and patient's brother. Brother only speak Danish, so Amirah was the spoke person. I elicited her perception of patient;s condition. She stated that patient has been sick for the last 5 years and she feels that he has been and is suffering now as well. Amirah also admits to be tired from assisting her during his illness for the last 5 years. I reviewed patient's clinical presentation and related his symptoms to a Dg of colon cancer and postoperative complications. Amirah wanted to know if her was dying and " how long he had left to live". I reassured Amirah that despite her 's very complex condition he was not dying just yet. Further , Code status discussed. Amirah stated that in the past she was asked the same question and due to circumstances, "she did not have time to think and her was intubated and on MV support". I questioned if she knew how her feels about it now and how she feels about it. Amirah was not sure about her ;s wishes for the end of life care, but if it was up to her she would not ant him to be intubated again. She is afraid that he will not be able to sustain another aggressive procedure. I reassured Amirah that we will have to talk to patient once his procedure is over and see what were his wishes for the end of life care. Until than we will be providing all prudent measures to support his condition. We agreed to meet tomorrow again. Impression * Shortness of breath * Fistula * Weakness * Abdominal pain * Family has concerns about patient's quality of life Suggestion * Continue BiPap * Assist with ADLs * Morphine Iv PRN pain * Palliative care will continue support for patient and family Advance Care planing time 30 min
[2017-12-18] MEDS ORDERED: Bupivacaine HCl 0.25% PF (30 ml) Inj ONE (12:32)
--- NOTE | 2017-12-18 12:50 | PCM.SURG1 ---
Surgeon's Initial Post Op Note - Surgeon's Notes Surgeon: Dr. Nieto Air Conditioner Installer Helper: Dr. Woods PGY2, [place] MS3 Type of Anesthesia: MAC Pre-Operative Diagnosis: Perianal Abscess Operative Findings: See operative Dictation Post-Operative Diagnosis: Perianal Abscess Operation Performed: Inscision and Drainage of Perianal Abscess Specimen/Specimens Removed: Purulent Fluid Estimated Blood Loss: EBL {In ML}: 20 Blood Products Given: N/A Drains Used: No Drains Post-Op Condition: Good Date of Surgery/Procedure: 12/18/17 Time of Surgery/Procedure: 12:50
[2017-12-18] MEDS ORDERED: Morphine 4 MG/ML VIAL ONE (13:09)
[2017-12-18 14:53] VITALS: RESP 20
--- NOTE | 2017-12-18 18:44 | PN ---
DATE: 12/18/2017 SUBJECTIVE: The patient underwent incision and drainage of perirectal abscess. Today, the patient did okay and I saw the patient in the recovery room. I spoke to Dr. Nieto, surgeon. There were no issues except for mild sinus bradycardia and the patient is currently hemodynamically stable. He has no chest pain. PHYSICAL EXAMINATION: VITAL SIGNS: Blood pressure 97/65, heart rate is 104, temperature 99.3, respirations 18. HEENT: Pale conjunctivae. CHEST: Clear. HEART: S1 and S2 regular. EXTREMITIES: No edema. LABORATORY DATA: Hemoglobin and hematocrit 9.6 and 28.9, white count 15.3, platelet count 409,000. Today's SMA-7 at 11:20 a.m., sodium 139, potassium 3.5, chloride 100, CO2 29, glucose 120, BUN 2, creatinine 0.5. ASSESSMENT: 1. Status post incision and drainage of perirectal abscess. 2. Hypokalemia. 3. Uncontrolled diabetes mellitus. 4. Chronic obstructive lung disease. RECOMMENDATIONS: Continue current IV ampicillin. The patient is currently receiving 20 mEq of IV potassium replacement. Continue lactated Ringer's, K-Dur, and oral Cardizem. Obtain 12-lead EKG. Mukesh Correia MD
[2017-12-18] MEDS: Albuterol 0.083% Inhal Sol (2.5 mg/3 mL) UD INH PRN (19:24)
--- NOTE | 2017-12-18 22:27 | CP.PCM.PN ---
Subjective - Date & Time of Evaluation Date of Evaluation: 12/18/17 Time of Evaluation: 16:35 - Subjective Subjective: Pt is seen and examined, is afebrile, he has loose wattery stools , no fever, pt has a colostomy, pt has steroid induced DM, he is for possible LTAC Objective - Vital Signs/Intake and Output Vital Signs (last 24 hours): Temp Pulse Resp BP Pulse Ox 98.4 F 112 H 20 120/72 97 12/18/17 16:14 12/18/17 20:04 12/18/17 16:14 12/18/17 20:04 12/18/17 16:14 Intake and Output: 12/18/17 12/19/17 18:59 06:59 Output Total 20 500 Balance -20 -500 - Medications Medications: Current Medications Albuterol Sulfate (Albuterol 0.083% Inhal Dorothea (2.5 Mg/3 Ml) Ud) 2.5 mg INH RQ12 PRN PRN Reason: Shortness of Breath Last Admin: 12/18/17 19:24 Dose: 2.5 mg Alprazolam (Xanax) 0.5 mg PO Q12H [facility] Last Admin: 12/18/17 21:39 Dose: 0.5 mg Diltiazem HCl (Cardizem) 90 mg PO TID [facility] Last Admin: 12/18/17 20:03 Dose: 90 mg Enoxaparin Sodium (Lovenox) 40 mg SC DAILY [facility] Last Admin: 12/18/17 09:00 Dose: Not Given Ampicillin 2 gm/ Sodium (Chloride) 100 mls @ 200 mls/hr IVPB Q6H [facility] PRN Reason: Protocol Last Admin: 12/18/17 21:39 Dose: 200 mls/hr Ciprofloxacin (Cipro 400mg/200ml Dsw) 400 mg in 200 mls @ 133 mls/hr IVPB Q12H [facility] PRN Reason: Protocol Last Admin: 12/18/17 16:11 Dose: 133 mls/hr Insulin Aspart (Novolog) 0 unit SC ACHS [facility] PRN Reason: Protocol Last Admin: 12/18/17 21:39 Dose: Not Given Ketorolac Tromethamine (Toradol) 30 mg IVP Q6 [facility] Montelukast Sodium (Singulair) 10 mg PO HS [facility] Last Admin: 12/18/17 21:39 Dose: 10 mg Multivitamins (Hexavitamin) 1 tab PO DAILY [facility] Last Admin: 12/18/17 09:00 Dose: Not Given Pantoprazole Sodium (Protonix Ec Tab) 40 mg PO DAILY [facility] Last Admin: 12/18/17 09:01 Dose: Not Given Potassium Chloride (K-Dur 20 Meq Er Tab) 40 meq PO DAILY [facility] Last Admin: 12/18/17 09:09 Dose: 40 meq Roflumilast (Daliresp) 500 mcg PO DAILY [facility] Last Admin: 12/18/17 09:09 Dose: 500 mcg Fluticasone/Salmeterol (Advair Diskus 250/50) 1 puff INH RQ12 [facility] Last Admin: 12/18/17 19:39 Dose: 1 puff - Labs Labs: 12/18/17 06:17 12/18/17 11:21 PT 10.8 SECONDS (9.7-12.2) 12/04/17 09:38 INR 1.0 12/04/17 09:38 APTT 28 SECONDS (21-34) 12/04/17 09:38 - Constitutional Appears: No Acute Distress, Chronically Ill - Head Exam Head Exam: ATRAUMATIC, NORMAL INSPECTION, NORMOCEPHALIC - Eye Exam Eye Exam: EOMI, Normal appearance, PERRL Pupil Exam: NORMAL ACCOMODATION, PERRL - Respiratory Exam Respiratory Exam: Clear to Ausculation Bilateral, NORMAL BREATHING PATTERN - Cardiovascular Exam Cardiovascular Exam: REGULAR RHYTHM, +S1, +S2. absent: Murmur - GI/Abdominal Exam GI & Abdominal Exam: Distended, Hyperactive Bowel Sounds - Rectal Exam Rectal Exam: Deferred Assessment and Plan (1) History of colostomy reversal Status: Acute (2) COPD exacerbation Status: Acute (3) BiPAP (biphasic positive airway pressure) dependence Status: Acute (4) Acute and chronic respiratory failure ([id number]) Status: Acute (5) Colostomy complication Status: Acute
--- NOTE | 2017-12-18 23:42 | OP ---
PROCEDURE DATE: 12/18/2017 PREOPERATIVE DIAGNOSIS: Rectal abscess. POSTOPERATIVE DIAGNOSIS: Rectal abscess. PROCEDURE: Incision and drainage of complex rectal abscess. SURGEON: Lucho Nieto Jr., MD TALENT DEVELOPMENT MANAGER: . ANESTHESIOLOGIST: . DESCRIPTION OF PROCEDURE: The patient is a middle-aged man with COPD, on steroids, who previously underwent reversal of ileostomy., without leak or fistula, had bowel movement per rectum, but now has developed a large circumrectal abscess primarily on the patient's right side in lithotomy position but extending across the midline to the left side. All three incisions were made to drain this out. The wounds were packed open, irrigated open and cultures taken internally. Blood loss of the procedure was 25 mL. Operation carried out is incision and drainage of complex perirectal abscess. There were three separate incisions made, one which was partially draining already on the patient's right perirectal area and then two more anteriorly. In addition, the rectal exam was carried out. There was no evidence of internal rectal abscesses or internal bulge. Dressings were applied, and the procedure was terminated. Operation carried out is incision and drainage of complex perirectal abscess. Lucho Nieto Jr., MD cc: Hal Garcia MD
[2017-12-19] MEDS: Albuterol 0.083% Inhal Sol (2.5 mg/3 mL) UD INH PRN ×3 (01:09→19:40)
[2017-12-19] MEDS: Ciprofloxacin 400mg/200ml D5W 400 MG/200 ML BAG IVPB SCH ×2 (02:36→16:06)
[2017-12-19] MEDS: AMPicillin 2 GM in Sodium Chloride 100 ML IVPB SCH ×4 (02:36→21:03)
[2017-12-19] MEDS: Fluticasone-Salmeterol 250-50mcg Diskus INH SCH ×2 (07:34→19:40)
[2017-12-19] MEDS: (Novolog) Insulin Aspart, Recombinant 100 u/ml 10 ml vial SC SCH ×4 (08:21→21:44)
[2017-12-19] MEDS: Multiple Vitamins Tab PO SCH (09:00)
[2017-12-19] MEDS: Pantoprazole 40 mg EC Tab PO SCH (09:00)
[2017-12-19] MEDS: Potassium Chloride 20 mEq ER Tab PO SCH (09:01)
[2017-12-19] MEDS: Enoxaparin 40 mg Syringe SC SCH (09:03)
[2017-12-19] MEDS: Oxycodone/Acetaminophen 5/325 mg Tab PO PRN (17:26)
--- NOTE | 2017-12-19 19:12 | CARD ---
APPROVED REPORT EKG Measurement Heart [id number] NC 120P [id number] <Conclusion> Sinus tachycardia Otherwise normal ECG
--- NOTE | 2017-12-19 22:04 | PN ---
DATE: 12/19/2017 SUBJECTIVE: The patient denies any chest pain. No shortness of breath other than sinus tachycardia. There are no reported arrhythmia. PHYSICAL EXAMINATION: VITAL SIGNS: Blood pressure 108/65, heart rate 105, temperature 97.8, respirations 20. HEENT: Normocephalic. CHEST: Minimal rhonchi. HEART: S1 and S2, regular. EXTREMITIES: No edema. LABORATORY DATA: Today's blood sugars are 140, 148, and 159. ASSESSMENT: 1. Status post incision and drainage of a perianal abscess. 2. Chronic obstructive lung disease. 3. Hypertension. 4. Uncontrolled diabetes mellitus. RECOMMENDATIONS: I did review the EKG that was done yesterday postoperatively which revealed sinus tachycardia at 205. It seems that the patient's earlier tachycardia ranged between 130 and 140, which was most likely related to the underlying perianal abscess. Continue current albuterol inhaler. Continue IV ampicillin at 2 gm every 6 hours. Continue Cardizem at 90 mg t.i.d., subcutaneous Lovenox at 40 mg once a day. The patient can be transferred to subacute rehab from the cardiac point of view on his current medications. Mukesh Correia MD
[2017-12-20] MEDS: Oxycodone/Acetaminophen 5/325 mg Tab PO PRN ×4 (01:46→17:31)
[2017-12-20] MEDS: AMPicillin 2 GM in Sodium Chloride 100 ML IVPB SCH (03:17)
[2017-12-20] MEDS: Ciprofloxacin 400mg/200ml D5W 400 MG/200 ML BAG IVPB SCH (03:18)
--- NOTE | 2017-12-20 04:31 | CP.PCM.PN ---
Subjective - Date & Time of Evaluation Date of Evaluation: 12/19/17 Time of Evaluation: 18:00 - Subjective Subjective: Pt is seen and examined, is afebrile, he has loose wattery stools , no fever, pt has a colostomy, pt has steroid induced DM, he is for possible LTAC Objective - Vital Signs/Intake and Output Vital Signs (last 24 hours): Temp Pulse Resp BP Pulse Ox 98.0 F 93 H 20 97/59 L 99 12/19/17 23:05 12/20/17 03:30 12/19/17 23:05 12/19/17 23:05 12/19/17 23:05 Intake and Output: 12/19/17 12/20/17 18:59 06:59 Intake Total 540 Output Total 20 300 Balance -20 240 - Medications Medications: Current Medications Albuterol Sulfate (Albuterol 0.083% Inhal Dorothea (2.5 Mg/3 Ml) Ud) 2.5 mg INH RQ12 PRN PRN Reason: Shortness of Breath Last Admin: 12/19/17 19:40 Dose: 2.5 mg Alprazolam (Xanax) 0.5 mg PO Q12H [facility] Last Admin: 12/19/17 21:04 Dose: 0.5 mg Diltiazem HCl (Cardizem) 90 mg PO TID [facility] Last Admin: 12/19/17 17:28 Dose: 90 mg Enoxaparin Sodium (Lovenox) 40 mg SC DAILY [facility] Last Admin: 12/19/17 09:03 Dose: 40 mg Ampicillin 2 gm/ Sodium (Chloride) 100 mls @ 200 mls/hr IVPB Q6H [facility] PRN Reason: Protocol Last Admin: 12/20/17 03:17 Dose: 200 mls/hr Ciprofloxacin (Cipro 400mg/200ml Dsw) 400 mg in 200 mls @ 133 mls/hr IVPB Q12H [facility] PRN Reason: Protocol Last Admin: 12/20/17 03:18 Dose: 133 mls/hr Insulin Aspart (Novolog) 0 unit SC ACHS [facility] PRN Reason: Protocol Last Admin: 12/19/17 21:44 Dose: Not Given Multivitamins (Hexavitamin) 1 tab PO DAILY [facility] Last Admin: 12/19/17 09:00 Dose: 1 tab Oxycodone/Acetaminophen (Percocet 5/325 Mg Tab) 1 tab PO Q4H [facility] PRN Reason: Pain, moderate (4-7) Stop: 12/22/17 17:17 Last Admin: 12/20/17 01:46 Dose: 1 tab Pantoprazole Sodium (Protonix Ec Tab) 40 mg PO DAILY [facility] Last Admin: 12/19/17 09:00 Dose: 40 mg Potassium Chloride (K-Dur 20 Meq Er Tab) 40 meq PO DAILY [facility] Last Admin: 12/19/17 09:01 Dose: 40 meq Roflumilast (Daliresp) 500 mcg PO DAILY [facility] Last Admin: 12/19/17 09:00 Dose: 500 mcg - Labs Labs: 12/18/17 06:17 12/18/17 11:21 PT 10.8 SECONDS (9.7-12.2) 12/04/17 09:38 INR 1.0 12/04/17 09:38 APTT 28 SECONDS (21-34) 12/04/17 09:38 - Constitutional Appears: No Acute Distress, Chronically Ill - Head Exam Head Exam: ATRAUMATIC, NORMAL INSPECTION, NORMOCEPHALIC - Eye Exam Eye Exam: EOMI, Normal appearance, PERRL Pupil Exam: NORMAL ACCOMODATION, PERRL - Respiratory Exam Respiratory Exam: Clear to Ausculation Bilateral, NORMAL BREATHING PATTERN - Cardiovascular Exam Cardiovascular Exam: REGULAR RHYTHM, +S1, +S2. absent: Murmur - GI/Abdominal Exam GI & Abdominal Exam: Distended - Rectal Exam Rectal Exam: Deferred Assessment and Plan (1) History of colostomy reversal Status: Acute (2) COPD exacerbation Status: Acute (3) BiPAP (biphasic positive airway pressure) dependence Status: Acute (4) Acute and chronic respiratory failure ([id number]) Status: Acute (5) Colostomy complication Status: Acute
[2017-12-20] MEDS ORDERED: Pantoprazole 40 mg EC Tab PO SCH (07:06)
[2017-12-20] MEDS: Fluticasone-Salmeterol 250-50mcg Diskus INH SCH ×2 (07:20→19:59)
[2017-12-20] MEDS: Albuterol-Ipratrop 3 mg / 0.5 (3 ml) UD INH SCH ×3 (07:24→19:59)
[2017-12-20] MEDS: (Novolog) Insulin Aspart, Recombinant 100 u/ml 10 ml vial SC SCH ×4 (07:55→21:39)
--- NOTE | 2017-12-20 10:00 | CP.PCM.PN ---
Subjective - Date & Time of Evaluation Date of Evaluation: 12/20/17 Time of Evaluation: 09:56 - Subjective Subjective: General Surgery Progress Note for Dr. Nieto This 67M was seen and examined this Am at bedside no acute events overnight. Patient tolerating diet. Packing pulled this AM during rounds. No new complaints at this time. Pt awaiting placement in LTAC Objective - Vital Signs/Intake and Output Vital Signs (last 24 hours): Temp Pulse Resp BP Pulse Ox 98.2 F 100 H 20 108/68 98 12/20/17 04:36 12/20/17 07:47 12/20/17 04:36 12/20/17 04:36 12/20/17 04:36 Intake and Output: 12/20/17 12/20/17 06:59 18:59 Intake Total 540 Output Total 300 Balance 240 - Medications Medications: Current Medications Albuterol/Ipratropium (Duoneb 3 Mg/0.5 Mg (3 Ml) Ud) 3 ml INH RQ6 [facility] Last Admin: 12/20/17 07:24 Dose: 3 ml Alprazolam (Xanax) 0.5 mg PO Q12H [facility] Last Admin: 12/19/17 21:04 Dose: 0.5 mg Ampicillin (Ampicillin) 500 mg PO QID [facility] PRN Reason: Protocol Bismuth Subsalicylate (Pepto Bismol) 262 mg PO TID [facility] Ciprofloxacin (Cipro) 500 mg PO BID [facility] PRN Reason: Protocol Diltiazem HCl (Cardizem) 60 mg PO TID [facility] Enoxaparin Sodium (Lovenox) 40 mg SC DAILY [facility] Last Admin: 12/19/17 09:03 Dose: 40 mg Insulin Aspart (Novolog) 0 unit SC ACHS [facility] PRN Reason: Protocol Last Admin: 12/20/17 07:55 Dose: Not Given Multivitamins (Hexavitamin) 1 tab PO DAILY [facility] Last Admin: 12/19/17 09:00 Dose: 1 tab Oxycodone/Acetaminophen (Percocet 5/325 Mg Tab) 1 tab PO Q4H PRN PRN Reason: Pain, moderate (4-7) Stop: 12/22/17 17:17 Last Admin: 12/20/17 06:18 Dose: 1 tab Pantoprazole Sodium (Protonix Ec Tab) 20 mg PO DAILY [facility] Potassium Chloride (K-Dur 20 Meq Er Tab) 40 meq PO DAILY [facility] Last Admin: 12/19/17 09:01 Dose: 40 meq Roflumilast (Daliresp) 500 mcg PO DAILY [facility] Last Admin: 12/19/17 09:00 Dose: 500 mcg Fluticasone/Salmeterol (Advair Diskus 250/50) 1 puff INH RQ12 [facility] Last Admin: 12/20/17 07:20 Dose: 1 puff - Labs Labs: 12/18/17 06:17 12/18/17 11:21 PT 10.8 SECONDS (9.7-12.2) 12/04/17 09:38 INR 1.0 12/04/17 09:38 APTT 28 SECONDS (21-34) 12/04/17 09:38 - Constitutional Appears: Non-toxic, No Acute Distress - Head Exam Head Exam: ATRAUMATIC, NORMOCEPHALIC - Eye Exam Eye Exam: EOMI, Normal appearance - ENT Exam ENT Exam: Mucous Membranes Moist - Respiratory Exam Respiratory Exam: NORMAL BREATHING PATTERN - Cardiovascular Exam Cardiovascular Exam: REGULAR RHYTHM - GI/Abdominal Exam GI & Abdominal Exam: Soft, Normal Bowel Sounds. absent: Distended, Firm, Guarding, Rigid, Tenderness - Neurological Exam Neurological Exam: Alert, Awake - Psychiatric Exam Psychiatric exam: Normal Affect, Normal Mood - Skin Skin Exam: Dry, Intact Assessment and Plan - Assessment and Plan (Free Text) Assessment: 67M POD#13 s/p ileostomy reversal; w/ anastomotic fistula POD#2 s/p I&D of perianal abscess Clear for D/C to LTAC at the discretion of the primary care team. D/W Dr. Emilia Woods PGY2
[2017-12-20] MEDS: Enoxaparin 40 mg Syringe SC SCH (11:00)
[2017-12-20] MEDS: Potassium Chloride 20 mEq ER Tab PO SCH (11:01)
[2017-12-20] MEDS: Bismuth Subsalicylate 262 mg Chew Tab PO SCH ×3 (11:20→17:31)
[2017-12-20 13:55] LABS: HEMOGLOBIN 9.8 g/dL (12.0-18.0); MEAN CELL VOLUME 69.5 fL (80.0-94.0); MEAN CORPUSCULAR HEMOGLOBIN 23.1 pg (27.0-31.0); MEAN CORPUSCULAR HGB CONC 33.3 g/dL (33.0-37.0); MEAN PLATELET VOLUME 7.7 fL (7.2-11.7); RBC 4.25 Mil/uL (4.40-5.90); RED CELL DISTRIBUTION WIDTH 17.6 % (11.5-14.5); WHITE BLOOD COUNT 10.6 K/uL (4.8-10.8)
--- NOTE | 2017-12-20 14:09 | CP.PCM.PN ---
Subjective - Date & Time of Evaluation Date of Evaluation: 12/20/17 Time of Evaluation: 14:09 - Subjective Subjective: -PLACE UNDER THE SERVICE OF DR. GAN WHILE AT [facility]--CALL DR. GAN UPON ARRIVAL TO FACILITY FOR PATIENT INFORMATION AND ADMITTING ORDERS. -CONTINUE MEDICATIONS PER THE MED REC FORM---CHANGES CAN BE MADE BY ATTENDING. -CONTINUE CIPRO 400 MG IV Q12 HOURS X5DAYS (12/21/17-12/25/17) AND AMPICILLIN 2GM Q6 HOURS X5 DAYS (12/21/17-12/25/17). -PLEASE HAVE WOUND CARE TEAM EVALUATE OPEN SURGICAL WOUND TO THE RIGHT LOWER ABDOMEN. -PHYSICAL THERAPY TOLERATED. -FOLLOW UP WITH DR. MANZANO IN THE OFFICE WITHIN 2-3 WEEKS---CALL FOR APPOINTMENT TIME. IF MR. CHRISTOPHER IS STILL AT [facility], PLEASE ARRANGE FOLLOW UP APPOINTMENT AND TRANSPORTATION. -FOR FURTHER QUESTIONS OR CONCERNS REGARDING RECENT HOSPITALIZATION, CONTACT DR. ZHANG'S OFFICE. Objective - Vital Signs/Intake and Output Vital Signs (last 24 hours): Temp Pulse Resp BP Pulse Ox 98.2 F 100 H 20 108/68 98 12/20/17 04:36 12/20/17 07:47 12/20/17 04:36 12/20/17 04:36 12/20/17 04:36 Intake and Output: 12/20/17 12/20/17 06:59 18:59 Intake Total 540 Output Total 300 Balance 240 - Medications Medications: Current Medications Albuterol/Ipratropium (Duoneb 3 Mg/0.5 Mg (3 Ml) Ud) 3 ml INH RQ6 [facility] Last Admin: 12/20/17 13:14 Dose: 3 ml Alprazolam (Xanax) 0.5 mg PO Q12H [facility] Last Admin: 12/20/17 11:00 Dose: 0.5 mg Ampicillin (Ampicillin) 500 mg PO QID [facility] PRN Reason: Protocol Last Admin: 12/20/17 11:20 Dose: 500 mg Bismuth Subsalicylate (Pepto Bismol) 262 mg PO TID [facility] Last Admin: 12/20/17 11:20 Dose: 262 mg Ciprofloxacin (Cipro) 500 mg PO BID [facility] PRN Reason: Protocol Last Admin: 12/20/17 11:01 Dose: 500 mg Diltiazem HCl (Cardizem) 60 mg PO TID [facility] Last Admin: 12/20/17 11:01 Dose: 60 mg Enoxaparin Sodium (Lovenox) 40 mg SC DAILY [facility] Last Admin: 12/20/17 11:00 Dose: 40 mg Insulin Aspart (Novolog) 0 unit SC ACHS [facility] PRN Reason: Protocol Last Admin: 12/20/17 12:58 Dose: Not Given Oxycodone/Acetaminophen (Percocet 5/325 Mg Tab) 1 tab PO Q4H PRN PRN Reason: Pain, moderate (4-7) Stop: 12/22/17 17:17 Last Admin: 12/20/17 11:00 Dose: 1 tab Pantoprazole Sodium (Protonix Ec Tab) 20 mg PO DAILY [facility] Last Admin: 12/20/17 11:00 Dose: 20 mg Potassium Chloride (K-Dur 20 Meq Er Tab) 40 meq PO DAILY [facility] Last Admin: 12/20/17 11:01 Dose: 40 meq Fluticasone/Salmeterol (Advair Diskus 250/50) 1 puff INH RQ12 [facility] Last Admin: 12/20/17 07:20 Dose: 1 puff - Labs Labs: 12/20/17 13:50 12/18/17 11:21 PT 10.8 SECONDS (9.7-12.2) 12/04/17 09:38 INR 1.0 12/04/17 09:38 APTT 28 SECONDS (21-34) 12/04/17 09:38
[2017-12-20 14:37] LABS: BLOOD UREA NITROGEN 2 mg/dL (9-20); CALCIUM 8.2 mg/dl (8.6-10.4); GFR AFRICAN-AMERICAN > 60; GFR NON-AFRICAN AMERICAN > 60
--- NOTE | 2017-12-20 17:00 | CP.PCM.PN ---
Subjective - Date & Time of Evaluation Date of Evaluation: 12/20/17 Time of Evaluation: 10:00 - Subjective Subjective: The patient seen and examined Denies shortness of breath, denies cough, denies fever chills s/p ileostomy reversal; w/ anastomotic fistula POD#2 s/p I&D of perianal abscess Continue nebulizer treatment BiPAP as needed Objective - Vital Signs/Intake and Output Vital Signs (last 24 hours): Temp Pulse Resp BP Pulse Ox 97.5 F L 108 H 20 108/68 99 12/20/17 16:23 12/20/17 16:23 12/20/17 16:23 12/20/17 16:23 12/20/17 16:23 Intake and Output: 12/20/17 12/20/17 06:59 18:59 Intake Total 540 Output Total 300 Balance 240 - Medications Medications: Current Medications Albuterol/Ipratropium (Duoneb 3 Mg/0.5 Mg (3 Ml) Ud) 3 ml INH RQ6 [facility] Last Admin: 12/20/17 13:14 Dose: 3 ml Alprazolam (Xanax) 0.5 mg PO Q12H [facility] Last Admin: 12/20/17 11:00 Dose: 0.5 mg Ampicillin (Ampicillin) 500 mg PO QID [facility] PRN Reason: Protocol Last Admin: 12/20/17 14:26 Dose: 500 mg Bismuth Subsalicylate (Pepto Bismol) 262 mg PO TID [facility] Last Admin: 12/20/17 14:26 Dose: 262 mg Ciprofloxacin (Cipro) 500 mg PO BID [facility] PRN Reason: Protocol Last Admin: 12/20/17 11:01 Dose: 500 mg Diltiazem HCl (Cardizem) 60 mg PO TID [facility] Last Admin: 12/20/17 14:26 Dose: 60 mg Enoxaparin Sodium (Lovenox) 40 mg SC DAILY [facility] Last Admin: 12/20/17 11:00 Dose: 40 mg Potassium Chloride (Potassium Chloride 20 Meq/100 Ml) 20 meq in 100 mls @ 50 mls/hr IVPB Q2 [facility] Stop: 12/20/17 23:59 Insulin Aspart (Novolog) 0 unit SC ACHS [facility] PRN Reason: Protocol Last Admin: 12/20/17 12:58 Dose: Not Given Oxycodone/Acetaminophen (Percocet 5/325 Mg Tab) 1 tab PO Q4H PRN PRN Reason: Pain, moderate (4-7) Stop: 12/22/17 17:17 Last Admin: 12/20/17 11:00 Dose: 1 tab Pantoprazole Sodium (Protonix Ec Tab) 20 mg PO DAILY [facility] Last Admin: 12/20/17 11:00 Dose: 20 mg Potassium Chloride (K-Dur 20 Meq Er Tab) 40 meq PO DAILY [facility] Last Admin: 12/20/17 11:01 Dose: 40 meq Fluticasone/Salmeterol (Advair Diskus 250/50) 1 puff INH RQ12 [facility] Last Admin: 12/20/17 07:20 Dose: 1 puff - Labs Labs: 12/20/17 13:50 12/20/17 13:50 PT 10.8 SECONDS (9.7-12.2) 12/04/17 09:38 INR 1.0 12/04/17 09:38 APTT 28 SECONDS (21-34) 12/04/17 09:38 Assessment and Plan (1) COPD (chronic obstructive pulmonary disease) Status: Acute
--- NOTE | 2017-12-20 19:11 | PN ---
DATE: 12/20/2017 SUBJECTIVE: The patient denies any chest pain. No shortness of breath. Monitor reveals sinus rhythm in the 90s. PHYSICAL EXAMINATION: VITAL SIGNS: Blood pressure 108/68, heart rate 96, temperature 98.2, respirations 20. HEENT: Pale conjunctiva. CHEST: Minimal rhonchi. HEART: S1 and S2, regular. EXTREMITIES: No edema. LABORATORY DATA: Today's hemoglobin and hematocrit 9.8 and 29.5, white count 10.6, platelet count 272,000. SMA-7: Sodium 139, potassium is pending, chloride 99, CO2 is 32, glucose 102, BUN 2, creatinine 0.5. ASSESSMENT: 1. Status post closure of ileostomy. 2. Status post incision and drainage of perianal abscess. 3. Anemia. 4. Hypokalemia. 5. Chronic obstructive lung disease. RECOMMENDATIONS: Continue current oral ampicillin 500 mg four times daily. Continue Cardizem 60 mg three times daily, Cipro 500 mg orally twice a day, Lovenox at 40 mg subcutaneously once a day. PLAN: To transfer the patient to LTAC facility. I recommend obtaining potassium level prior to the discharge. Mukesh Correia MD
[2017-12-21] MEDS: Oxycodone/Acetaminophen 5/325 mg Tab PO PRN ×3 (00:13→09:49)
[2017-12-21] MEDS: Albuterol-Ipratrop 3 mg / 0.5 (3 ml) UD INH SCH ×2 (01:14→07:17)
[2017-12-21] MEDS: Fluticasone-Salmeterol 250-50mcg Diskus INH SCH (07:16)
[2017-12-21 07:38] VITALS: BP 115/73; TEMP 98.2; O2SAT 96
[2017-12-21] MEDS: (Novolog) Insulin Aspart, Recombinant 100 u/ml 10 ml vial SC SCH (07:55)
[2017-12-21 09:03] VITALS: PULSE 104
--- NOTE | 2017-12-21 09:11 | CP.PCM.PN ---
Subjective - Date & Time of Evaluation Date of Evaluation: 12/21/17 Time of Evaluation: 19:00 - Subjective Subjective: PT SEEN AND EXAMINED TODAY Objective - Vital Signs/Intake and Output Vital Signs (last 24 hours): Temp Pulse Resp BP Pulse Ox 98.2 F 104 H 20 115/73 96 12/21/17 07:00 12/21/17 07:44 12/21/17 07:00 12/21/17 07:00 12/21/17 07:00 Intake and Output: 12/21/17 12/21/17 06:59 18:59 Intake Total 100 Output Total 500 Balance -400 - Medications Medications: Current Medications Albuterol/Ipratropium (Duoneb 3 Mg/0.5 Mg (3 Ml) Ud) 3 ml INH RQ6 [facility] Last Admin: 12/21/17 07:17 Dose: 3 ml Alprazolam (Xanax) 0.5 mg PO Q12H [facility] Last Admin: 12/20/17 21:50 Dose: 0.5 mg Ampicillin (Ampicillin) 500 mg PO QID [facility] PRN Reason: Protocol Last Admin: 12/20/17 21:50 Dose: 500 mg Bismuth Subsalicylate (Pepto Bismol) 262 mg PO TID [facility] Last Admin: 12/20/17 17:31 Dose: 262 mg Ciprofloxacin (Cipro) 500 mg PO BID [facility] PRN Reason: Protocol Last Admin: 12/20/17 17:31 Dose: 500 mg Diltiazem HCl (Cardizem) 60 mg PO TID [facility] Last Admin: 12/20/17 17:31 Dose: 60 mg Enoxaparin Sodium (Lovenox) 40 mg SC DAILY [facility] Last Admin: 12/20/17 11:00 Dose: 40 mg Insulin Aspart (Novolog) 0 unit SC ACHS [facility] PRN Reason: Protocol Last Admin: 12/21/17 07:55 Dose: Not Given Oxycodone/Acetaminophen (Percocet 5/325 Mg Tab) 1 tab PO Q4H PRN PRN Reason: Pain, moderate (4-7) Stop: 12/22/17 17:17 Last Admin: 12/21/17 05:27 Dose: 1 tab Pantoprazole Sodium (Protonix Ec Tab) 20 mg PO DAILY [facility] Last Admin: 12/20/17 11:00 Dose: 20 mg Potassium Chloride (K-Dur 20 Meq Er Tab) 40 meq PO DAILY [facility] Last Admin: 12/20/17 11:01 Dose: 40 meq Fluticasone/Salmeterol (Advair Diskus 250/50) 1 puff INH RQ12 [facility] Last Admin: 12/21/17 07:16 Dose: 1 puff - Labs Labs: 12/20/17 13:50 12/20/17 13:50 PT 10.8 SECONDS (9.7-12.2) 12/04/17 09:38 INR 1.0 12/04/17 09:38 APTT 28 SECONDS (21-34) 12/04/17 09:38 Assessment and Plan (1) History of colostomy reversal Status: Acute (2) COPD exacerbation Status: Acute (3) BiPAP (biphasic positive airway pressure) dependence Status: Acute (4) Acute and chronic respiratory failure ([id number]) Status: Acute (5) Colostomy complication Status: Acute
--- NOTE | 2017-12-21 09:11 | CP.PCM.PN ---
Subjective - Date & Time of Evaluation Date of Evaluation: 12/20/17 Time of Evaluation: 18:00 - Subjective Subjective: PT SEEN AND EXAMINED TODAY Objective - Vital Signs/Intake and Output Vital Signs (last 24 hours): Temp Pulse Resp BP Pulse Ox 98.2 F 104 H 20 115/73 96 12/21/17 07:00 12/21/17 07:44 12/21/17 07:00 12/21/17 07:00 12/21/17 07:00 Intake and Output: 12/21/17 12/21/17 06:59 18:59 Intake Total 100 Output Total 500 Balance -400 - Medications Medications: Current Medications Albuterol/Ipratropium (Duoneb 3 Mg/0.5 Mg (3 Ml) Ud) 3 ml INH RQ6 [facility] Last Admin: 12/21/17 07:17 Dose: 3 ml Alprazolam (Xanax) 0.5 mg PO Q12H [facility] Last Admin: 12/20/17 21:50 Dose: 0.5 mg Ampicillin (Ampicillin) 500 mg PO QID [facility] PRN Reason: Protocol Last Admin: 12/20/17 21:50 Dose: 500 mg Bismuth Subsalicylate (Pepto Bismol) 262 mg PO TID [facility] Last Admin: 12/20/17 17:31 Dose: 262 mg Ciprofloxacin (Cipro) 500 mg PO BID [facility] PRN Reason: Protocol Last Admin: 12/20/17 17:31 Dose: 500 mg Diltiazem HCl (Cardizem) 60 mg PO TID [facility] Last Admin: 12/20/17 17:31 Dose: 60 mg Enoxaparin Sodium (Lovenox) 40 mg SC DAILY [facility] Last Admin: 12/20/17 11:00 Dose: 40 mg Insulin Aspart (Novolog) 0 unit SC ACHS [facility] PRN Reason: Protocol Last Admin: 12/21/17 07:55 Dose: Not Given Oxycodone/Acetaminophen (Percocet 5/325 Mg Tab) 1 tab PO Q4H PRN PRN Reason: Pain, moderate (4-7) Stop: 12/22/17 17:17 Last Admin: 12/21/17 05:27 Dose: 1 tab Pantoprazole Sodium (Protonix Ec Tab) 20 mg PO DAILY [facility] Last Admin: 12/20/17 11:00 Dose: 20 mg Potassium Chloride (K-Dur 20 Meq Er Tab) 40 meq PO DAILY [facility] Last Admin: 12/20/17 11:01 Dose: 40 meq Fluticasone/Salmeterol (Advair Diskus 250/50) 1 puff INH RQ12 [facility] Last Admin: 12/21/17 07:16 Dose: 1 puff - Labs Labs: 12/20/17 13:50 12/20/17 13:50 PT 10.8 SECONDS (9.7-12.2) 12/04/17 09:38 INR 1.0 12/04/17 09:38 APTT 28 SECONDS (21-34) 12/04/17 09:38 Assessment and Plan (1) History of colostomy reversal Status: Acute (2) COPD exacerbation Status: Acute (3) BiPAP (biphasic positive airway pressure) dependence Status: Acute (4) Acute and chronic respiratory failure ([id number]) Status: Acute (5) Colostomy complication Status: Acute
[2017-12-21 09:22] LABS: BLOOD UREA NITROGEN 2 mg/dL (9-20); CALCIUM 8.2 mg/dl (8.6-10.4); GFR AFRICAN-AMERICAN > 60; GFR NON-AFRICAN AMERICAN > 60
--- NOTE | 2017-12-21 09:29 | CP.PCM.PN ---
Subjective - Date & Time of Evaluation Date of Evaluation: 12/21/17 Time of Evaluation: 09:29 - Subjective Subjective: PT CLEARED FOR D/C TO [facility] THIS MORNING. K TODAY 3.1; PO DOSE GIVEN, PT REFUSED K-RIDER. ORDERED FOR ANOTHER PO DOSE TO BE GIVEN THIS AFTERNOON AT 1500 ONCE PT IS AT [facility]. I DISCUSSED ALL D/C PLAN AND MEDICATIONS WITH PT AND YESTERDAY. THEY ARE IN AGREEMENT AND VERBALIZE UNDERSTANDING OF D/C PLAN. SEE BELOW FOR FURTHER D/C PLAN. SW ARRANGED TRANSPORTATION FOR [facility] THIS MORNING. PT TO BE UNDER THE SERVICE OF DR. GAN WHILE AT [facility]. NO FURTHER ORDERS. -PLACE UNDER THE SERVICE OF DR. GAN WHILE AT [facility]--CALL DR. GAN UPON ARRIVAL TO FACILITY FOR PATIENT INFORMATION AND ADMITTING ORDERS. -PLEASE MONITOR POTASSIUM---DRAW BMP ON 12/22/17 AND NOTIFY ATTENDING OF RESULTS. -CONTINUE MEDICATIONS PER THE MED REC FORM---CHANGES CAN BE MADE BY ATTENDING. -GIVE DOSE OF KCL 40 MEQ TODAY (12/21) AT 3 PM (MR. CHRISTOPHER REFUSED IV KCL PRIOR TO DISCHARGE FROM HOSPITAL). -CONTINUE CIPRO 400 MG IV Q12 HOURS X5DAYS (12/21/17-12/25/17) AND AMPICILLIN 2GM Q6 HOURS X5 DAYS (12/21/17-12/25/17). -PLEASE HAVE WOUND CARE TEAM EVALUATE OPEN SURGICAL WOUND TO THE RIGHT LOWER ABDOMEN. -PHYSICAL THERAPY TOLERATED. -FOLLOW UP WITH DR. MANZANO IN THE OFFICE WITHIN 2-3 WEEKS---CALL FOR APPOINTMENT TIME. IF MR. CHRISTOPHER IS STILL AT [facility], PLEASE ARRANGE FOLLOW UP APPOINTMENT AND TRANSPORTATION. -FOR FURTHER QUESTIONS OR CONCERNS REGARDING RECENT HOSPITALIZATION, CONTACT DR. ZHANG'S OFFICE. Objective - Vital Signs/Intake and Output Vital Signs (last 24 hours): Temp Pulse Resp BP Pulse Ox 98.2 F 104 H 20 115/73 96 12/21/17 07:00 12/21/17 07:44 12/21/17 07:00 12/21/17 07:00 12/21/17 07:00 Intake and Output: 12/21/17 12/21/17 06:59 18:59 Intake Total 100 Output Total 500 Balance -400 - Medications Medications: Current Medications Albuterol/Ipratropium (Duoneb 3 Mg/0.5 Mg (3 Ml) Ud) 3 ml INH RQ6 [facility] Last Admin: 12/21/17 07:17 Dose: 3 ml Alprazolam (Xanax) 0.5 mg PO Q12H [facility] Last Admin: 12/20/17 21:50 Dose: 0.5 mg Ampicillin (Ampicillin) 500 mg PO QID [facility] PRN Reason: Protocol Last Admin: 12/20/17 21:50 Dose: 500 mg Bismuth Subsalicylate (Pepto Bismol) 262 mg PO TID [facility] Last Admin: 12/20/17 17:31 Dose: 262 mg Ciprofloxacin (Cipro) 500 mg PO BID [facility] PRN Reason: Protocol Last Admin: 12/20/17 17:31 Dose: 500 mg Diltiazem HCl (Cardizem) 60 mg PO TID [facility] Last Admin: 12/20/17 17:31 Dose: 60 mg Enoxaparin Sodium (Lovenox) 40 mg SC DAILY [facility] Last Admin: 12/20/17 11:00 Dose: 40 mg Potassium Chloride (Potassium Chloride 20 Meq/100 Ml) 20 meq in 100 mls @ 50 mls/hr IVPB ONCE ONE Stop: 12/21/17 11:29 Insulin Aspart (Novolog) 0 unit SC ACHS [facility] PRN Reason: Protocol Last Admin: 12/21/17 07:55 Dose: Not Given Oxycodone/Acetaminophen (Percocet 5/325 Mg Tab) 1 tab PO Q4H PRN PRN Reason: Pain, moderate (4-7) Stop: 12/22/17 17:17 Last Admin: 12/21/17 05:27 Dose: 1 tab Pantoprazole Sodium (Protonix Ec Tab) 20 mg PO DAILY [facility] Potassium Chloride (K-Dur 20 Meq Er Tab) 40 meq PO DAILY [facility] Last Admin: 12/20/17 11:01 Dose: 40 meq Fluticasone/Salmeterol (Advair Diskus 250/50) 1 puff INH RQ12 [facility] Last Admin: 12/21/17 07:16 Dose: 1 puff - Labs Labs: 12/20/17 13:50 12/21/17 08:40 PT 10.8 SECONDS (9.7-12.2) 12/04/17 09:38 INR 1.0 12/04/17 09:38 APTT 28 SECONDS (21-34) 12/04/17 09:38
[2017-12-21] MEDS: Potassium Chloride 20 mEq ER Tab PO SCH (09:49)
[2017-12-21] MEDS: Bismuth Subsalicylate 262 mg Chew Tab PO SCH (09:50)
[2017-12-21] MEDS: Enoxaparin 40 mg Syringe SC SCH (09:52)
[2017-12-21] MEDS ORDERED: Pantoprazole 20 mg EC Tab PO SCH (10:00)
--- NOTE | 2017-12-22 02:05 | CP.PCM.DIS ---
Provider - Provider Date of Admission: 12/04/17 11:10 Attending physician: Hal Garcia MD Time Spent in preparation of Discharge (in minutes): 45 Diagnosis - Discharge Diagnosis (1) History of colostomy reversal Status: Acute (2) COPD exacerbation Status: Acute Priority: Medium (3) BiPAP (biphasic positive airway pressure) dependence Status: Acute (4) Acute and chronic respiratory failure ([id number]) Status: Acute (5) Colostomy complication Status: Acute Hospital Course - Lab Results Lab Results: Micro Results 12/16/17 17:05 Blood-Venous Blood Culture - Final NO GROWTH AFTER 5 DAYS 12/16/17 16:45 Blood-Venous Blood Culture - Final NO GROWTH AFTER 5 DAYS 12/18/17 12:43 Rectum Gram Stain - Final 12/18/17 12:43 Rectum Tissue Culture - Preliminary NO GROWTH AFTER 24 HOURS 12/18/17 12:41 Rectum Gram Stain - Final 12/18/17 12:41 Rectum Wound Culture - Final NORMAL SAPROPHYTIC KALYN 12/09/17 08:30 Abdomen Gram Stain - Final 12/09/17 08:30 Abdomen Wound Culture - Final Pseudomonas Aeruginosa Enterococcus Faecalis 12/04/17 08:15 Blood Blood Culture - Final NO GROWTH AFTER 5 DAYS 12/04/17 08:15 Blood Gram Stain - Final TEST NOT PERFORMED 12/06/17 21:47 Naris MRSA Culture (Admit) - Final MRSA NOT DETECTED 12/04/17 10:00 Blood S.aureus & Coag-Neg Staph PNA FISH - Final 12/04/17 10:00 Blood Blood Culture - Final Coagulase Neg Staphylococcus 12/04/17 10:00 Blood Gram Stain - Final 12/06/17 21:46 Urine,[place] Urine Culture - Final No Growth (<1,000 CFU/ML) Most Recent Lab Values WBC 10.6 K/uL (4.8-10.8) 12/20/17 13:50 RBC 4.25 Mil/uL (4.40-5.90) L 12/20/17 13:50 Hgb 9.8 g/dL (12.0-18.0) L 12/20/17 13:50 Hct 29.5 % (35.0-51.0) L 12/20/17 13:50 MCV 69.5 fL (80.0-94.0) L 12/20/17 13:50 MCH 23.1 pg (27.0-31.0) L 12/20/17 13:50 MCHC 33.3 g/dL (33.0-37.0) 12/20/17 13:50 RDW 17.6 % (11.5-14.5) H 12/20/17 13:50 Plt Count 472 K/uL (130-400) H 12/20/17 13:50 MPV 7.7 fL (7.2-11.7) 12/20/17 13:50 Neut % (Auto) 80.5 % (50.0-75.0) H 12/15/17 06:39 Lymph % (Auto) 11.3 % (20.0-40.0) L 12/15/17 06:39 [place] % (Auto) 7.3 % (0.0-10.0) 12/15/17 06:39 Eos % (Auto) 0.6 % (0.0-4.0) 12/15/17 06:39 Baso % (Auto) 0.3 % (0.0-2.0) 12/15/17 06:39 Neut # (Auto) 11.5 K/uL (1.8-7.0) H 12/15/17 06:39 Lymph # (Auto) 1.6 K/uL (1.0-4.3) 12/15/17 06:39 [place] # (Auto) 1.0 K/uL (0.0-0.8) H 12/15/17 06:39 Eos # (Auto) 0.1 K/uL (0.0-0.7) 12/15/17 06:39 Baso # (Auto) 0.0 K/uL (0.0-0.2) 12/15/17 06:39 Neutrophils % (Manual) 85 % (50-75) H 12/14/17 06:41 Band Neutrophils % 6 % (0-2) H 12/11/17 06:44 Lymphocytes % (Manual) 9 % (20-40) L 12/14/17 06:41 Monocytes % (Manual) 5 % (0-10) 12/14/17 06:41 Eosinophils % (Manual) 1 % (0-4) 12/10/17 06:20 Basophils % (Manual) 1 % (0-2) 12/14/17 06:41 Metamyelocytes % 1 % (0-0) H 12/07/17 06:12 Platelet Estimate Normal (NORMAL) 12/14/17 06:41 Polychromasia Slight 12/11/17 06:44 Hypochromasia (manual) Slight 12/14/17 06:41 Poikilocytosis (manual Slight 12/14/17 06:41 Basophilic Stippling Slight 12/07/17 06:12 Anisocytosis (manual) Slight 12/14/17 06:41 Microcytosis (manual) Slight 12/11/17 06:44 Spherocytes Slight 12/09/17 10:20 Target Cells Slight 12/14/17 06:41 Tear Drop Cells Slight 12/09/17 10:20 Ovalocytes Slight 12/14/17 06:41 Schistocytes Slight 12/11/17 06:44 PT 10.8 SECONDS (9.7-12.2) 12/04/17 09:38 INR 1.0 12/04/17 09:38 APTT 28 SECONDS (21-34) 12/04/17 09:38 Puncture Site Rra 12/04/17 10:17 pCO2 45 mm/Hg (35-45) 12/04/17 10:17 pO2 126 mm/Hg (80-100) H 12/04/17 10:17 HCO3 27.0 mmol/L (21-28) 12/04/17 10:17 ABG pH 7.40 (7.35-7.45) 12/04/17 10:17 ABG Total CO2 29.3 mmol/L (22-28) H 12/04/17 10:17 ABG O2 Saturation 99.1 % (95-98) H 12/04/17 10:17 ABG Base Excess 2.7 mmol/L (-2.0-3.0) 12/04/17 10:17 ABG Hemoglobin 10.2 g/dL (11.7-17.4) L 12/04/17 10:17 ABG Carboxyhemoglobin 1.8 % (0.5-1.5) H 12/04/17 10:17 POC ABG HHb (Measured) 0.9 % (0.0-5.0) 12/04/17 10:17 ABG Methemoglobin 1.9 % (0.0-3.0) 12/04/17 10:17 Jesus Test Pos 12/04/17 10:17 A-a O2 Difference 17.0 mm/Hg 12/04/17 10:17 Respiratory Index 0.1 12/04/17 10:17 Hgb O2 Saturation 95.3 % (95.0-98.0) 12/04/17 10:17 Liter Flow 2.0 12/04/17 10:17 FiO2 28.0 % 12/04/17 10:17 Sodium 143 mmol/L (132-148) 12/21/17 08:40 Potassium 3.1 mmol/L (3.6-5.2) L 12/21/17 08:40 Chloride 102 mmol/L (98-107) 12/21/17 08:40 Carbon Dioxide 30 mmol/L (22-30) 12/21/17 08:40 Anion Gap 13 (10-20) 12/21/17 08:40 BUN 2 mg/dL (9-20) L 12/21/17 08:40 Creatinine 0.6 mg/dL (0.8-1.5) L 12/21/17 08:40 Est GFR ( Amer) > 60 12/21/17 08:40 Est GFR (Non-Af Amer) > 60 12/21/17 08:40 POC Glucose (mg/dL) 136 mg/dL (65-110) H 12/21/17 11:16 Random Glucose 117 mg/dL (75-110) H 12/21/17 08:40 Calcium 8.2 mg/dl (8.6-10.4) L 12/21/17 08:40 Phosphorus 2.7 mg/dL (2.5-4.5) 12/15/17 06:38 Magnesium 2.1 mg/dL (1.6-2.3) 12/15/17 06:38 Total Bilirubin 0.5 mg/dL (0.2-1.3) 12/15/17 06:38 AST 49 U/L (17-59) 12/15/17 06:38 ALT 69 U/L (21-72) 12/15/17 06:38 Alkaline Phosphatase 138 U/L (38-126) H 12/15/17 06:38 Troponin I < 0.0120 ng/mL (0.00-0.120) 12/04/17 09:54 Total Protein 5.8 g/dL (6.3-8.3) L 12/15/17 06:38 Albumin 2.9 g/dL (3.5-5.0) L 12/15/17 06:38 Globulin 2.9 gm/dL (2.2-3.9) 12/15/17 06:38 Albumin/Globulin Ratio 1.0 (1.0-2.1) 12/15/17 06:38 TSH 3rd Generation 1.07 mIU/L (0.46-4.68) 12/04/17 09:54 Urine Color Yellow (YELLOW) 12/04/17 10:20 Urine Clarity Clear (Clear) 12/04/17 10:20 Urine pH 5.0 (5.0-8.0) 12/04/17 10:20 Ur Specific [place] 1.021 (1.003-1.030) 12/04/17 10:20 Urine Protein Negative mg/dL (NEGATIVE) 12/04/17 10:20 Urine Glucose (UA) 1+ mg/dL (Normal) H 12/04/17 10:20 Urine Ketones Trace mg/dL (NEGATIVE) 12/04/17 10:20 Urine Blood Negative (NEGATIVE) 12/04/17 10:20 Urine Nitrate Negative (NEGATIVE) 12/04/17 10:20 Urine Bilirubin Negative (NEGATIVE) 12/04/17 10:20 Urine Urobilinogen Normal mg/dL (0.2-1.0) 12/04/17 10:20 Ur Leukocyte Esterase Neg Eulalio/uL (Negative) 12/04/17 10:20 Urine WBC (Auto) 1 /hpf (0-5) 12/04/17 10:20 Urine RBC (Auto) < 1 /hpf (0-3) 12/04/17 10:20 Ur Squamous Epith Cells < 1 /hpf (0-5) 12/04/17 10:20 C. difficile Ag & Toxin Negative (NEGATIVE) 12/16/17 14:05 Blood Type O POSITIVE 12/06/17 06:28 Antibody Screen Negative 12/06/17 06:28 - Hospital Course Hospital Course: PT CLEARED FOR D/C TO [facility] THIS MORNING. K TODAY 3.1; PO DOSE GIVEN, PT REFUSED K-RIDER. ORDERED FOR ANOTHER PO DOSE TO BE GIVEN THIS AFTERNOON AT 1500 ONCE PT IS AT [facility]. I DISCUSSED ALL D/C PLAN AND MEDICATIONS WITH PT AND YESTERDAY. THEY ARE IN AGREEMENT AND VERBALIZE UNDERSTANDING OF D/C PLAN. SEE BELOW FOR FURTHER D/C PLAN. SW ARRANGED TRANSPORTATION FOR [facility] THIS MORNING. PT TO BE UNDER THE SERVICE OF DR. GAN WHILE AT [facility]. NO FURTHER ORDERS. -PLACE UNDER THE SERVICE OF DR. GAN WHILE AT [facility]--CALL DR. GAN UPON ARRIVAL TO FACILITY FOR PATIENT INFORMATION AND ADMITTING ORDERS. -PLEASE MONITOR POTASSIUM---DRAW BMP ON 12/22/17 AND NOTIFY ATTENDING OF RESULTS. -CONTINUE MEDICATIONS PER THE MED REC FORM---CHANGES CAN BE MADE BY ATTENDING. -GIVE DOSE OF KCL 40 MEQ TODAY (12/21) AT 3 PM (MR. CHRISTOPHER REFUSED IV KCL PRIOR TO DISCHARGE FROM HOSPITAL). -CONTINUE CIPRO 400 MG IV Q12 HOURS X5DAYS (12/21/17-12/25/17) AND AMPICILLIN 2GM Q6 HOURS X5 DAYS (12/21/17-12/25/17). -PLEASE HAVE WOUND CARE TEAM EVALUATE OPEN SURGICAL WOUND TO THE RIGHT LOWER ABDOMEN. -PHYSICAL THERAPY TOLERATED. -FOLLOW UP WITH DR. MANZANO IN THE OFFICE WITHIN 2-3 WEEKS---CALL FOR APPOINTMENT TIME. IF MR. CHRISTOPHER IS STILL AT [facility], PLEASE ARRANGE FOLLOW UP APPOINTMENT AND TRANSPORTATION. -FOR FURTHER QUESTIONS OR CONCERNS REGARDING RECENT HOSPITALIZATION, CONTACT DR. GARCIA'S OFFICE. Discharge Exam - Head Exam Head Exam: ATRAUMATIC, NORMOCEPHALIC - Eye Exam Eye Exam: EOMI, Normal appearance, PERRL Pupil Exam: NORMAL ACCOMODATION, PERRL - ENT Exam ENT Exam: Mucous Membranes Moist - Respiratory Exam Respiratory Exam: Decreased Breath Sounds, Rales, Wheezes - Cardiovascular Exam Cardiovascular Exam: REGULAR RHYTHM - GI/Abdominal Exam GI & Abdominal Exam: Normal Bowel Sounds Discharge Plan - Discharge Medications Prescriptions: Ciprofloxacin Lactate [Ciprofloxacin] 400 mg IV Q12 5 Days vial - Follow Up Plan Condition: STABLE Disposition: [facility] Instructions: Chronic Obstructive Pulmonary Disease (COPD), Including Emphysema , Ciprofloxacin (Systemic), Heart Healthy Diet, Abscess Incision and Drainage, Heart Failure, Adult (DC), Medicines for Chronic Obstructive Pulmonary Disease ( COPD), Ileostomy Care, Ostomy Reversal Additional Instructions: -PLACE UNDER THE SERVICE OF DR. GAN WHILE AT [facility]--CALL DR. GAN UPON ARRIVAL TO FACILITY FOR PATIENT INFORMATION AND ADMITTING ORDERS. -PLEASE MONITOR POTASSIUM---DRAW BMP ON 12/22/17 AND NOTIFY ATTENDING OF RESULTS. -CONTINUE MEDICATIONS PER THE MED REC FORM---CHANGES CAN BE MADE BY ATTENDING. -GIVE DOSE OF KCL 40 MEQ TODAY (12/21) AT 3 PM (MR. CHRISTOPHER REFUSED IV KCL PRIOR TO DISCHARGE FROM HOSPITAL). -CONTINUE CIPRO 400 MG IV Q12 HOURS X5DAYS (12/21/17-12/25/17) AND AMPICILLIN 2GM Q6 HOURS X5 DAYS (12/21/17-12/25/17). -PLEASE HAVE WOUND CARE TEAM EVALUATE OPEN SURGICAL WOUND TO THE RIGHT LOWER ABDOMEN. -PHYSICAL THERAPY TOLERATED. -FOLLOW UP WITH DR. MANZANO IN THE OFFICE WITHIN 2-3 WEEKS---CALL FOR APPOINTMENT TIME. IF MR. CHRISTOPHER IS STILL AT [facility], PLEASE ARRANGE FOLLOW UP APPOINTMENT AND TRANSPORTATION. -FOR FURTHER QUESTIONS OR CONCERNS REGARDING RECENT HOSPITALIZATION, CONTACT DR. GARCIA'S OFFICE. Referrals: Ralf Nuno MD [Staff Provider] - Brionna Cutler APN-C [Staff Provider] - Mukesh Correia MD [Staff Provider] - Hal Garcia MD [Staff Provider] - Lucho Manzano Jr., MD [Staff Provider] -
== END 2017-12-21 11:33 | DRG 987 ==
LOC: C.ER 08:44 → C.9E 11:10 → C.6T 12:33 → C.9E 12:34 → C.6T 12:51 → C.9I 12-06 17:08 → C.6T 12-16 19:58
PROVIDERS: ADMIT Internal Medicine; ATTEND Internal Medicine
PROC: 5A09557 Assistance with Respiratory Ventilation, Greater than 96 Consecutive Hours, Continuous Positive Airway Pressure (ICD-10-PCS; 2017-12-04)
PROC: 0T9B70Z Drainage of Bladder with Drainage Device, Via Natural or Artificial Opening (ICD-10-PCS; 2017-12-06)
PROC: 0DBB0ZZ Excision of Ileum, Open Approach (ICD-10-PCS; principal; 2017-12-06 12:00)
PROC: 0D9P3ZZ Drainage of Rectum, Percutaneous Approach (ICD-10-PCS; 2017-12-18)
DX: J44.1 Chronic obstructive pulmonary disease with (acute) exacerbation (principal); J96.20 Acute and chronic respiratory failure, unspecified whether with hypoxia or hypercapnia; J98.11 Atelectasis; I13.0 Hypertensive heart and chronic kidney disease with heart failure and stage 1 through stage 4 chronic kidney disease, or unspecified chronic kidney disease; K61.2 Anorectal abscess; Z99.11 Dependence on respirator [ventilator] status; K56.7 Ileus, unspecified; R78.81 Bacteremia; K63.2 Fistula of intestine; K94.09 Other complications of colostomy; I50.9 Heart failure, unspecified; Z85.048 Personal history of other malignant neoplasm of rectum, rectosigmoid junction, and anus; G47.30 Sleep apnea, unspecified; T38.0X5A Adverse effect of glucocorticoids and synthetic analogues, initial encounter; Z87.891 Personal history of nicotine dependence; N18.9 Chronic kidney disease, unspecified; F41.9 Anxiety disorder, unspecified; E78.00 Pure hypercholesterolemia, unspecified; E11.22 Type 2 diabetes mellitus with diabetic chronic kidney disease; D64.9 Anemia, unspecified; R58 Hemorrhage, not elsewhere classified; Z79.4 Long term (current) use of insulin; L40.9 Psoriasis, unspecified; Z90.49 Acquired absence of other specified parts of digestive tract; Z91.013 Allergy to seafood; Z88.8 Allergy status to other drugs, medicaments and biological substances; Z91.041 Radiographic dye allergy status; Z99.81 Dependence on supplemental oxygen; F32.9 Major depressive disorder, single episode, unspecified; R53.1 Weakness; E11.65 Type 2 diabetes mellitus with hyperglycemia; R00.0 Tachycardia, unspecified; E87.6 Hypokalemia; B95.7 Other staphylococcus as the cause of diseases classified elsewhere; M47.9 Spondylosis, unspecified

== ENCOUNTER 2018-01-25 22:58 | Inpatient (IN) | payer MEDICARE, BC ==
[2018-01-25 22:58] VITALS: BMI 24.2
--- NOTE | 2018-01-26 00:20 | C.PDOC ---
History Of Present Illness Patient is a 67 y/o male, with a Hx of COPD on home oxygen, DM, HTN, colorectal CA, HLD, chronic kidney disease, and CHF, who presents to the ED as a transfer from rehab with complaints of worsening abdominal pain and distension for high risk of obstruction. Patient is a poor historian. Per medical history, patient underwent I&D of complex rectal abscess by Dr Nieto on 12/18 and resection of iliostomy; hx of reversal iliostomy without leak or fistula. No physical complaints at this time. Time Seen by Provider: 01/25/18 23:01 Chief Complaint (Nursing): Abdominal Pain History Per: Other (past history ) History/Exam Limitations: no limitations Onset/Duration Of Symptoms: Hrs Current Symptoms Are (Timing): Still Present Location Of Pain/Discomfort: Diffuse Associated Symptoms: Other (abdominal distension) Recent travel outside of the [place]: No Past Medical History Reviewed: Historical Data, Nursing Documentation, Vital Signs Vital Signs: Last Vital Signs Temp 98.4 F 01/26/18 04:42 Pulse 119 H 01/26/18 04:42 Resp 16 01/26/18 04:42 BP 129/80 01/26/18 04:42 Pulse Ox 100 01/26/18 05:34 - Medical History PMH: Anemia, Anxiety, Arthritis (BACK), Asthma, Bronchitis, Cardia Arrhythmia ( SVT), CHF, COPD (Emphysema), Diabetes, Emphysema, HTN, Hypercholesterolemia, Kidney Stones, Pneumonia, Chronic Kidney Disease, Sleep Apnea (ON DALIRESP) Denies: Fractures, Gastritis Surgical History: Endoscopy - [facility] Procedures ASSISTANCE WITH RESPIRATORY VENTILATION, 24-96 HRS, CPAP (08/23/17) ASSISTANCE WITH RESPIRATORY VENTILATION, <24 HRS, CPAP (11/14/17) ASSISTANCE WITH RESPIRATORY VENTILATION, >96 HRS, CPAP (12/04/17) CONTINUOUS INVASIVE MECHANICAL VENTILATION <96 CONSEC HRS (11/29/14) DILATION OF RIGHT URETER WITH INTRALUMINAL DEVICE, ENDO (03/20/17) DRAINAGE OF BLADDER WITH DRAINAGE DEVICE, VIA OPENING (12/04/17) DRAINAGE OF RECTUM, PERCUTANEOUS APPROACH (12/04/17) EXCISION OF ILEUM, OPEN APPROACH (12/04/17) EXCISION OF SIGMOID COLON, ENDO, DIAGN (03/20/17) EXCISION OF STOMACH, ENDO, DIAGN (03/20/17) EXCISION OF TRANSVERSE COLON, ENDO, DIAGN (03/20/17) INFLUENZA VACCINATION (06/02/14) INSERT ENDOTRACHEAL TUBE (11/29/14) LARYGNOSCOPY AND OTH TRACHEOSCOPY (04/18/15) MEASURE OF CARDIAC SAMPL & PRESSURE, L HEART, PERC APPROACH (12/01/15) NON-INVASIVE MECHANICAL VENTILATION (04/18/15) RESECTION OF SIGMOID COLON, OPEN APPROACH (03/20/17) RESPIRATORY VENTILATION, GREATER THAN 96 CONSECUTIVE HOURS (03/20/17) Family History: States: Unknown Family Hx - Social History Hx Tobacco Use: Yes (8 years ppd smoker. quit 1.5 years ago) Hx Alcohol Use: No Hx Substance Use: No - Immunization History Hx Tetanus Toxoid Vaccination: Yes Hx Influenza Vaccination: Yes Hx Pneumococcal Vaccination: Yes (12/01/2014) Review Of Systems Constitutional: Negative for: Fever, Chills, Sweats Eyes: Negative for: Pain, Vision Change, Conjunctivae Inflammation ENT: Negative for: Ear Pain, Ear Discharge, Nose Pain, Nose Discharge Cardiovascular: Negative for: Chest Pain, Palpitations, Orthopnea, Paroxysmal Noc. Dyspnea, Edema Respiratory: Positive for: Shortness of Breath, SOB with Excertion, Pleuritic Pain. Negative for: Cough, Hemoptysis Gastrointestinal: Positive for: Nausea, Vomiting, Abdominal Pain, Other ( abdominal distension). Negative for: Constipation Genitourinary: Negative for: Dysuria, Frequency, Incontinence Musculoskeletal: Negative for: Neck Pain, Shoulder Pain Skin: Negative for: Rash Neurological: Negative for: Weakness, Numbness, Incoordination Psych: Negative for: Anxiety, Depression Physical Exam - Physical Exam Appears: No Acute Distress, In Acute Distress Skin: Normal Color, Warm, Dry, Other (well healed surgical scars) Head: Atraumatic, Normacephalic Eye(s): bilateral: Normal Inspection, PERRL, EOMI Ear(s): Bilateral: Normal Nose: Normal Oral Mucosa: Moist Tongue: Normal Appearing Lips: Normal Appearing Gingiva: Normal Appearing Throat: Normal Neck: Normal Chest: Symmetrical Cardiovascular: Rhythm Regular, No Murmur Respiratory: No Rales, No Rhonchi, Wheezing (diffuse bilaterally ) Gastrointestinal/Abdominal: Bowel Sounds (hypoactive.), Soft, Tenderness ( diffuse), Distention, Other (iliostomy bag with stool in RLQ) Extremity: Normal ROM (x4) Neurological/Psych: Oriented x3, Normal Speech, Normal Cognition ED Course And Treatment - Laboratory Results Result Diagrams: 01/26/18 00:20 01/26/18 00:20 O2 Sat by Pulse Oximetry: 100 - CT Scan/US CT abdomen/pelvis Other Rad Studies (CT/US): Interpreted By Me, Read By Radiologist CT/US Interpretation: EXAM: CT Abdomen and Pelvis With Intravenous Contrast. EXAM DATE/TIME: 01/26/2018 12:26 AM. CLINICAL HISTORY: 67 years old, male; Pain; Abdominal pain; Prior surgery; Patient HX: 518; Additional info: Obstruction. TECHNIQUE: Axial computed tomography images of the abdomen and pelvis with intravenous contrast. All CT scans at this facility use one or more dose reduction techniques, viz.: automated exposure. control; ma/kV adjustment per patient size (including targeted exams where dose is matched to. indication; i.e. head); or iterative reconstruction technique. CONTRAST: 240 ml of ORAL administered intravenously. COMPARISON: CT - ABD PELVIS PO CONTRAST ONLY 2017-12-12 14:47. FINDINGS: Lower thorax: Small pericardial effusion. Atelectasis or fibrosis in the bases. mild elevation of the. the left hemidiaphragm. ABDOMEN: Liver: Normal. No mass. Gallbladder and bile ducts: Normal. No calcified stones. No ductal dilation. Pancreas: Normal. No ductal dilation. Spleen: Normal. No splenomegaly. Adrenals: Normal. No mass. Kidneys and ureters: Small nonobstructing stone in the right kidney. No hydronephrosis. Stomach and bowel: Dilated loops of small bowel are noted in the abdomen extending into the. upper pelvis anteriorly in the midline consistent with a small bowel obstruction. There is some. contrast in small bowel loops. Patient has undergone an ostomy and anterior resection and. adhesions are likely etiology of the obstruction. Appendix: Normal. No findings to suggest acute appendicitis. PELVIS: Bladder: Unremarkable as visualized. Reproductive: Unremarkable as visualized. ABDOMEN and PELVIS: Intraperitoneal space: Normal. No free air. No significant fluid collection. Bones/joints: Degenerative changes in the spine with spinal stenosis. Slight loss of height of the L3. vertebral body appears to be new or more prominent. Soft tissues: Unremarkable. Vasculature: Vascular calcifications. Lymph nodes : Normal. No enlarged lymph nodes. IMPRESSION: Dilated loops of small bowel are noted in the abdomen extending into the upper pelvis anteriorly in. the midline consistent with a small bowel obstruction. There is some contrast in small bowel loops. Patient has undergone an ostomy and anterior resection and adhesions are likely etiology of the. obstruction. Thank you for allowing us to participate in the care of your patient Progress Note: Patient is full code. Case discussed with manager surgical at 12:45am; currently at bedside with patient. CT on 12/12 shows interval reversal diverging loop iliostomy without obvious evidence of anatomatic leak or endrocutaneous fistula of RLQ. Dilated loops of small and large bowel is consistent with post-operative ilius. CXR 01/07 negative; stool negative 01/07. Patient notes continued drainage from iliostomy. CT abdomen/pelvis, EKG, blood work, UA ordered. Fentanyl, zofran, nebulizer treatments and duonebs administered. On re-eval, patient is vomiting and in severe pain. Second dose of fentanyl and zofran administered with vancocin and omnipaque. Critical Care Time - Critical Care Note Total Time (in mins): 45 Documented critical care: time excludes all time spent performing seperately billable procedures. Medical Decision Making Medical Decision Making: Case discussed with manager surgical who insisted Dr Nieto refused to accept patient for admission. Dr Garcia consulted and accepted patient for small bowel obstruction. Patient admitted. Disposition Counseled Patient/Family Regarding: Diagnosis - Disposition Disposition: HOSPITALIZED Disposition Time: 05:50 Condition: GUARDED Forms: [facility] (Maltese) - Clinical Impression Clinical Impression: COPD (chronic obstructive pulmonary disease) with emphysema, Small bowel obstruction, CAD (coronary artery disease), Abdominal pain, S/P colon resection , Ileostomy dysfunction - Scribe Statement The provider has reviewed the documentation as recorded by the Merryibilya Encarnacion All medical record entries made by the Merryibilya were at my direction and personally dictated by me. I have reviewed the chart and agree that the record accurately reflects my personal performance of the history, physical exam, medical decision making, and the department course for this patient. I have also personally directed, reviewed, and agree with the discharge instructions and disposition.
[2018-01-26 00:23] LABS: BASO # 0.1 K/uL (0.0-0.2); EOS # 0.2 K/uL (0.0-0.7); EOS % 1.4 % (0.0-4.0); HEMOGLOBIN 9.5 g/dL (12.0-18.0); LYMPH # 1.4 K/uL (1.0-4.3); LYMPH % 12.4 % (20.0-40.0); MEAN CELL VOLUME 67.2 fL (80.0-94.0); MEAN CORPUSCULAR HEMOGLOBIN 21.7 pg (27.0-31.0); MEAN CORPUSCULAR HGB CONC 32.3 g/dL (33.0-37.0); MEAN PLATELET VOLUME 7.4 fL (7.2-11.7); MONO # 0.8 K/uL (0.0-0.8); MONO % 6.4 % (0.0-10.0); NEUT # 9.2 K/uL (1.8-7.0); NEUT % 78.8 % (50.0-75.0); RBC 4.36 Mil/uL (4.40-5.90); RED CELL DISTRIBUTION WIDTH 17.5 % (11.5-14.5); WHITE BLOOD COUNT 11.7 K/uL (4.8-10.8)
[2018-01-26] MEDS ORDERED: Albuterol-Ipratrop 3 mg / 0.5 (3 ml) UD INH STA ×3 (00:25→06:06)
[2018-01-26] MEDS ORDERED: Albuterol-Ipratrop 3 mg / 0.5 (3 ml) UD ONE ×4 (00:29→19:34)
[2018-01-26 00:35] LABS: ALB/GLOB RATIO 1.4 (1.0-2.1); ALBUMIN 3.9 g/dL (3.5-5.0); ALT/SGPT 49 U/L (21-72); AST/SGOT 26 U/L (17-59); BLOOD UREA NITROGEN 10 mg/dL (9-20); CALCIUM 9.5 mg/dl (8.6-10.4); GFR AFRICAN-AMERICAN > 60; GFR NON-AFRICAN AMERICAN > 60; LIPASE 60 U/L (23-300)
[2018-01-26] MEDS ORDERED: Iohexol 240 (50 ml) PO ONE (01:08)
[2018-01-26] MEDS ORDERED: Iohexol 240 (50 ml) ONE (01:13)
[2018-01-26] MEDS ORDERED: Sodium Chloride 0.9% 1,000 ML IV SCH (02:15)
[2018-01-26] MEDS ORDERED: Sodium Chloride 0.9% 500 ML IV ONE (02:48)
[2018-01-26] MEDS ORDERED: Cefepime 1 GM in Sodium Chloride 0.9% 50 ML IVPB ONE (03:09)
[2018-01-26] MEDS ORDERED: metroNIDAZOLE IV 500 mg/100 ml 500 MG/100 ML BAG IVPB STA (03:10)
[2018-01-26] MEDS ORDERED: metroNIDAZOLE IV 500 mg/100 ml 500 MG/100 ML BAG ONE (04:28)
[2018-01-26] MEDS ORDERED: Vancomycin 1 GM in Sodium Chloride 0.9% 200 ML IVPB STA (04:38)
[2018-01-26] MEDS: Lactated Ringer's 1,000 ML IV SCH ×3 (07:15→20:00)
[2018-01-26] MEDS: Albuterol-Ipratrop 3 mg / 0.5 (3 ml) UD INH SCH ×3 (08:20→19:41)
[2018-01-26] MEDS: (Novolog) Insulin Aspart, Recombinant 100 u/ml 10 ml vial SC SCH ×4 (08:37→21:47)
--- NOTE | 2018-01-26 08:44 | CP.PCM.CON ---
History of Present Illness - History of Present Illness History of Present Illness: Surgery Patient is a 67 yo male w HO colon CA s/p ileostomy and colectomy in 2017 came with abdominal pain. Pain was sudden yesterday. also reports vomiting. Pt came to Doctor's Emilia's office yesterday for follow up. Soon after leaving his office he started to have pain. Pain is around the epigastric area. Last BM was yesterday. He normally has regular BM. Patient has multiple visits to ER for complaints of SOB in the past. Patient was recently admitted 10/2017 for sigmoid anastomosis surgery due to colon cancer. Ileostomy was created. On this admission Ct abd/pelvis was significant for SBO and on 12/06/17 patient had SBR with closure of illeostomy. In post op period patient developed fistula which was treated conservatively. Further more the abdominal wound got infected as well as blood. Both C&S came back positive. Pt recently went to OR for resection of rectal/giovanna rectal abcess. Pt had episode of emesis in ED. NGT placed. PMH: COPD,CHF, steroid induced DM, colon cancer, illeostomy creation PSH: See above Soc. Hx; Sally, has son and daughter, lives at home Fam. Hx: one brother in good health, parents Review of Systems - Constitutional Constitutional: absent: Chills, Fever - Gastrointestinal Gastrointestinal: Abdominal Pain, Bloating, Change in Bowel Habits, Constipation , Nausea, Vomiting. absent: Change in Stool Character, Diarrhea - Genitourinary Genitourinary: absent: Difficulty Urinating, Dysuria Past Patient History - Infectious Disease Hx of Infectious Diseases: None - Past Medical History & Family History Past Medical History?: Yes - Past Social History Smoking Status: Former Smoker - CARDIAC Hx Cardia Arrhythmia: Yes (SVT) Hx Congestive Heart Failure: Yes Hx Hypercholesterolemia: Yes Hx Hypertension: Yes - PULMONARY Hx Asthma: Yes Hx Bronchitis: Yes Hx Chronic Obstructive Pulmonary Disease (COPD): Yes (Emphysema) Hx Emphysema: Yes Hx Pneumonia: Yes Hx Sleep Apnea: Yes (ON DALIRESP) - NEUROLOGICAL HX Cerebrovascular Accident: No - HEENT Hx HEENT Problems: Yes Hx Cataracts: Yes (left cataract removed, r cataract) Hx Deafness: No Hx Difficulty Chewing: No Hx Epistaxis: No Hx Glaucoma: No Hx Macular Degeneration: No Other/Comment: wears eyeglasses for distance - RENAL Hx Chronic Kidney Disease: Yes Hx Kidney Stones: Yes - ENDOCRINE/METABOLIC 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 - MUSCULOSKELETAL/RHEUMATOLOGICAL Hx Arthritis: Yes (BACK) Hx Fractures: No - GASTROINTESTINAL Hx Gastritis: No - PSYCHIATRIC Hx Anxiety: Yes Hx Substance Use: No - SURGICAL HISTORY Hx Surgeries: Yes Hx Cataract Extraction: Yes (left eye, right eye) Hx Cardiac Catheterization: Yes (11/2015) Hx Eye Surgery: Yes Hx Pulmonary Surgery: Yes Other/Comment: colon resection with right ileostomy - ANESTHESIA Hx Anesthesia: Yes Hx Anesthesia Reactions: No Hx Malignant Hyperthermia: No Meds Allergies/Adverse Reactions: Allergies Allergy/AdvReac Type Severity Reaction Status Date / Time acetaminophen [From Tylenol] Allergy RASH Verified 12/04/17 09:01 FISH Allergy SWELLING Verified 12/04/17 09:01 shrimp Allergy SHORTNESS Verified 12/04/17 09:01 OF BREATH IV dye Allergy Severe ANAPHYLAXIS Uncoded 11/14/17 15:19 - Medications Medications: Current Medications Albuterol/Ipratropium (Duoneb 3 Mg/0.5 Mg (3 Ml) Ud) 3 ml INH RQ6 [facility] Last Admin: 01/26/18 08:20 Dose: 3 ml Alprazolam (Xanax) 0.5 mg PO Q12 [facility] Stop: 02/02/18 10:01 Diltiazem HCl (Cardizem) 60 mg PO TID [facility] Enoxaparin Sodium (Lovenox) 40 mg SC DAILY [facility] Fentanyl (Fentanyl) 25 mcg IVP Q4H PRN PRN Reason: pain Lactated Ringer's (Lactated Ringer's) 1,000 mls @ 125 mls/hr IV .Q8H [facility] Last Admin: 01/26/18 07:15 Dose: 125 mls/hr Cefepime HCl (Maxipime Iv 1 Gm Premix) 1 gm in 50 mls @ 100 mls/hr IVPB Q12H [facility] PRN Reason: Protocol Metronidazole (Flagyl) 500 mg in 100 mls @ 100 mls/hr IVPB Q8 [facility] PRN Reason: Protocol Vancomycin HCl 1,000 mg/ (Sodium Chloride) 250 mls @ 166.6 mls/hr IVPB Q12H [facility] PRN Reason: Protocol Insulin Aspart (Novolog) 0 unit SC ACHS [facility] PRN Reason: Protocol Last Admin: 01/26/18 08:37 Dose: 2 units Montelukast Sodium (Singulair) 10 mg PO HS [facility] Ondansetron HCl (Zofran Inj) 4 mg IVP Q4 PRN PRN Reason: Nausea/Vomiting Last Admin: 01/26/18 03:29 Dose: 4 mg Pantoprazole Sodium (Protonix Inj) 40 mg IVP DAILY [facility] Fluticasone/Salmeterol (Advair Diskus 250/50) 1 puff INH BID [facility] Physical Exam - Constitutional Appears: In Acute Distress - Head Exam Head Exam: ATRAUMATIC, NORMAL INSPECTION, NORMOCEPHALIC - Eye Exam Eye Exam: EOMI, Normal appearance, PERRL Pupil Exam: NORMAL ACCOMODATION, PERRL - ENT Exam ENT Exam: Mucous Membranes Moist, Normal Exam - Neck Exam Neck exam: Positive for: Normal Inspection - Respiratory Exam Respiratory Exam: Clear to Auscultation Bilateral, NORMAL BREATHING PATTERN - Cardiovascular Exam Cardiovascular Exam: REGULAR RHYTHM - GI/Abdominal Exam GI & Abdominal Exam: Distended, Guarding, Normal Bowel Sounds, Soft, Tenderness. absent: Firm, Rigid Additional comments: ileostomy has output. - Extremities Exam Extremities exam: Positive for: normal inspection - Back Exam Back exam: NORMAL INSPECTION - Neurological Exam Neurological exam: Alert, CN II-XII Intact, Normal Gait, Oriented x3, Reflexes Normal - Psychiatric Exam Psychiatric exam: Normal Affect, Normal Mood - Skin Skin Exam: Dry, Intact, Normal Color, Warm Results - Vital Signs Recent Vital Signs: Last Vital Signs Temp 98.4 F 01/26/18 04:42 Pulse 120 H 01/26/18 08:22 Resp 22 01/26/18 06:05 BP 136/85 01/26/18 06:05 Pulse Ox 98 01/26/18 06:05 - Labs Result Diagrams: 01/26/18 00:20 01/26/18 00:20 Labs: Laboratory Results - last 24 hr 01/26/18 01/26/18 01/26/18 00:20 00:20 01:24 WBC 11.7 H RBC 4.36 L Hgb 9.5 L Hct 29.3 L MCV 67.2 L D MCH 21.7 L MCHC 32.3 L RDW 17.5 H Plt Count 349 D MPV 7.4 Neut % (Auto) 78.8 H Lymph % (Auto) 12.4 L [place] % (Auto) 6.4 Eos % (Auto) 1.4 Baso % (Auto) 1.0 Neut # (Auto) 9.2 H Lymph # (Auto) 1.4 [place] # (Auto) 0.8 Eos # (Auto) 0.2 Baso # (Auto) 0.1 Sodium 140 Potassium 3.6 Chloride 100 Carbon Dioxide 29 Anion Gap 15 BUN 10 Creatinine 0.8 Est GFR ( Amer) > 60 Est GFR (Non-Af Amer) > 60 POC Glucose (mg/dL) Random Glucose 111 H Lactic Acid 0.8 Calcium 9.5 Total Bilirubin 0.5 AST 26 ALT 49 Alkaline Phosphatase 140 H NT-Pro-B Natriuret Pep Total Protein 6.7 Albumin 3.9 Globulin 2.8 Albumin/Globulin Ratio 1.4 Lipase 60 01/26/18 01/26/18 03:07 08:18 WBC RBC Hgb Hct MCV MCH MCHC RDW Plt Count MPV Neut % (Auto) Lymph % (Auto) [place] % (Auto) Eos % (Auto) Baso % (Auto) Neut # (Auto) Lymph # (Auto) [place] # (Auto) Eos # (Auto) Baso # (Auto) Sodium Potassium Chloride Carbon Dioxide Anion Gap BUN Creatinine Est GFR ( Amer) Est GFR (Non-Af Amer) POC Glucose (mg/dL) 235 H Random Glucose Lactic Acid Calcium Total Bilirubin AST ALT Alkaline Phosphatase NT-Pro-B Natriuret Pep 102 Total Protein Albumin Globulin Albumin/Globulin Ratio Lipase Assessment & Plan - Assessment and Plan (Free Text) Assessment: SBO -NPO -NGT -I &O -IVF -ambulate -medical management ALEJANDRA Nieto
[2018-01-26] MEDS: Enoxaparin 40 mg Syringe SC SCH (09:46)
--- NOTE | 2018-01-26 09:46 | CP.PCM.CON ---
History of Present Illness - History of Present Illness History of Present Illness: Pulmonary Evaluation Covering Dr. Nuno 67 Years old former heavy smoker M (Quit 5 years ago) with PMHx of COPD with frequent exacerbations "requiring" multiple hospitalization Admitted with Abdominal pain sec to SBO Patient on BIPAP, in no apperent distress + Shortness of Breath, SOB with Excertion he has some shortness of breath and wheezing that is not far from his baseline, but that overall he feels fine from pulmonary stand point PMHx: COPD, arthritis, steroid-induced DM, sleep apnea, colon cancer PSH: sigmoid anastamosis, endoscopy 11/07, cataract repair Home Meds: duonebs, 10mg prednisone PO QD, roflumilast, Allergies: acetaminophen, fish, shrimp, IV dye SH: 8 pack-year tobacco habit quit 1.5 years ago, quit alcohol 15 years ago, no drug use 1. COPD - Saturating 97%, Continue BiPAP as needed and at night - CXR No new infilterate - duonebs - singulair - sAdvair NPO, NG tube to suction, Hydrations, Pain control Past Patient History - Infectious Disease Hx of Infectious Diseases: None - Past Medical History & Family History Past Medical History?: Yes - Past Social History Smoking Status: Former Smoker - CARDIAC Hx Cardia Arrhythmia: Yes (SVT) Hx Congestive Heart Failure: Yes Hx Hypercholesterolemia: Yes Hx Hypertension: Yes - PULMONARY Hx Asthma: Yes Hx Bronchitis: Yes Hx Chronic Obstructive Pulmonary Disease (COPD): Yes (Emphysema) Hx Emphysema: Yes Hx Pneumonia: Yes Hx Sleep Apnea: Yes (ON DALIRESP) - NEUROLOGICAL HX Cerebrovascular Accident: No - HEENT Hx HEENT Problems: Yes Hx Cataracts: Yes (left cataract removed, r cataract) Hx Deafness: No Hx Difficulty Chewing: No Hx Epistaxis: No Hx Glaucoma: No Hx Macular Degeneration: No Other/Comment: wears eyeglasses for distance - RENAL Hx Chronic Kidney Disease: Yes Hx Kidney Stones: Yes - ENDOCRINE/METABOLIC 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 - MUSCULOSKELETAL/RHEUMATOLOGICAL Hx Arthritis: Yes (BACK) Hx Fractures: No - GASTROINTESTINAL Hx Gastritis: No - PSYCHIATRIC Hx Anxiety: Yes Hx Substance Use: No - SURGICAL HISTORY Hx Surgeries: Yes Hx Cataract Extraction: Yes (left eye, right eye) Hx Cardiac Catheterization: Yes (11/2015) Hx Eye Surgery: Yes Hx Pulmonary Surgery: Yes Other/Comment: colon resection with right ileostomy - ANESTHESIA Hx Anesthesia: Yes Hx Anesthesia Reactions: No Hx Malignant Hyperthermia: No Meds Allergies/Adverse Reactions: Allergies Allergy/AdvReac Type Severity Reaction Status Date / Time acetaminophen [From Tylenol] Allergy RASH Verified 12/04/17 09:01 FISH Allergy SWELLING Verified 12/04/17 09:01 shrimp Allergy SHORTNESS Verified 12/04/17 09:01 OF BREATH IV dye Allergy Severe ANAPHYLAXIS Uncoded 11/14/17 15:19 - Medications Medications: Current Medications Albuterol/Ipratropium (Duoneb 3 Mg/0.5 Mg (3 Ml) Ud) 3 ml INH RQ6 [facility] Last Admin: 01/26/18 08:20 Dose: 3 ml Alprazolam (Xanax) 0.5 mg PO Q12 [facility] Stop: 02/02/18 10:01 Diltiazem HCl (Cardizem) 60 mg PO TID [facility] Enoxaparin Sodium (Lovenox) 40 mg SC DAILY [facility] Fentanyl (Fentanyl) 25 mcg IVP Q4H PRN PRN Reason: pain Hydromorphone HCl (Dilaudid) 0.5 mg IVP Q4H PRN PRN Reason: Pain, severe (8-10) Lactated Ringer's (Lactated Ringer's) 1,000 mls @ 125 mls/hr IV .Q8H [facility] Last Admin: 01/26/18 07:15 Dose: 125 mls/hr Cefepime HCl (Maxipime Iv 1 Gm Premix) 1 gm in 50 mls @ 100 mls/hr IVPB Q12H [facility] PRN Reason: Protocol Metronidazole (Flagyl) 500 mg in 100 mls @ 100 mls/hr IVPB Q8 [facility] PRN Reason: Protocol Vancomycin HCl 1,000 mg/ (Sodium Chloride) 250 mls @ 166.6 mls/hr IVPB Q12H [facility] PRN Reason: Protocol Insulin Aspart (Novolog) 0 unit SC ACHS [facility] PRN Reason: Protocol Last Admin: 01/26/18 08:37 Dose: 2 units Ketorolac Tromethamine (Toradol) 15 mg IVP Q6 [facility] Montelukast Sodium (Singulair) 10 mg PO HS [facility] Ondansetron HCl (Zofran Inj) 4 mg IVP Q4 [facility] PRN Reason: Nausea/Vomiting Last Admin: 01/26/18 03:29 Dose: 4 mg Pantoprazole Sodium (Protonix Inj) 40 mg IVP DAILY [facility] Fluticasone/Salmeterol (Advair Diskus 250/50) 1 puff INH BID [facility] Last Admin: 01/26/18 09:09 Dose: Not Given Results - Vital Signs Recent Vital Signs: Last Vital Signs Temp 98.4 F 01/26/18 04:42 Pulse 76 01/26/18 09:46 Resp 22 01/26/18 06:05 BP 123/83 01/26/18 09:46 Pulse Ox 98 01/26/18 06:05 - Labs Result Diagrams: 01/26/18 00:20 01/26/18 00:20 Labs: Laboratory Results - last 24 hr 01/26/18 01/26/18 01/26/18 00:20 00:20 01:24 WBC 11.7 H RBC 4.36 L Hgb 9.5 L Hct 29.3 L MCV 67.2 L D MCH 21.7 L MCHC 32.3 L RDW 17.5 H Plt Count 349 D MPV 7.4 Neut % (Auto) 78.8 H Lymph % (Auto) 12.4 L [place] % (Auto) 6.4 Eos % (Auto) 1.4 Baso % (Auto) 1.0 Neut # (Auto) 9.2 H Lymph # (Auto) 1.4 [place] # (Auto) 0.8 Eos # (Auto) 0.2 Baso # (Auto) 0.1 Sodium 140 Potassium 3.6 Chloride 100 Carbon Dioxide 29 Anion Gap 15 BUN 10 Creatinine 0.8 Est GFR ( Amer) > 60 Est GFR (Non-Af Amer) > 60 POC Glucose (mg/dL) Random Glucose 111 H Lactic Acid 0.8 Calcium 9.5 Total Bilirubin 0.5 AST 26 ALT 49 Alkaline Phosphatase 140 H NT-Pro-B Natriuret Pep Total Protein 6.7 Albumin 3.9 Globulin 2.8 Albumin/Globulin Ratio 1.4 Lipase 60 01/26/18 01/26/18 03:07 08:18 WBC RBC Hgb Hct MCV MCH MCHC RDW Plt Count MPV Neut % (Auto) Lymph % (Auto) [place] % (Auto) Eos % (Auto) Baso % (Auto) Neut # (Auto) Lymph # (Auto) [place] # (Auto) Eos # (Auto) Baso # (Auto) Sodium Potassium Chloride Carbon Dioxide Anion Gap BUN Creatinine Est GFR ( Amer) Est GFR (Non-Af Amer) POC Glucose (mg/dL) 235 H Random Glucose Lactic Acid Calcium Total Bilirubin AST ALT Alkaline Phosphatase NT-Pro-B Natriuret Pep 102 Total Protein Albumin Globulin Albumin/Globulin Ratio Lipase
[2018-01-26] MEDS ORDERED: Fluticasone-Salmeterol 250-50mcg Diskus INH SCH (10:00)
--- NOTE | 2018-01-26 12:03 | CP.PCM.CON ---
<Deborah Shook - Last Filed: 01/26/18 12:06> History of Present Illness - History of Present Illness History of Present Illness: GI Fellow PGY4 Consult Note This is a 67 yo male with ofpast medical hx colon cancer 03/2017 s/p ileostomy and colectomy who is presenting with complaints of abdominal pain. Pt reports pain started suddenly yesterday with associated vomiting. Pt reports seeing yesterday for follow up but soon after leaving his office he started to have pain. Pain is around the epigastric area. He reports having normal BM daily but yesterday did not have BM all day in ileostomy bag. Patient has multiple visits to ER for complaints of SOB in the past. Patient was recently admitted 10/2017 for sigmoid anastomosis surgery due to colon cancer. Ileostomy was created. On this admission CTAP was significant for SBO and on patient had SBR with closure of illeostomy. In post op period patient developed fistula which was treated conservatively. Also pt's abdominal wound got infected and blood cx came back positive. Pt recently went to OR for resection of rectal/giovanna rectal abscess. Pt was discharged to [facility] last month. In the ER pt had episode of emesis in ED. NGT placed by surgery. Pt had a colonoscopy in 10/2017 for surveillance after colon cancer surgery, on scope a prior surgical anastamosis in sigmoid was seen, friable mucosa, with normal ileum, recommended repeat colonoscopy after surgical reanastamosis for screening. ROS: A 12pt ROS was negative except as above. PMH: As stated in HPI PSH: illeostomy SHx: Denies tobacco, etoh, or drugs FHx: Neg colon cancer Past Patient History - Infectious Disease Hx of Infectious Diseases: None - Past Medical History & Family History Past Medical History?: Yes - Past Social History Smoking Status: Former Smoker - CARDIAC Hx Cardia Arrhythmia: Yes (SVT) Hx Congestive Heart Failure: Yes Hx Hypercholesterolemia: Yes Hx Hypertension: Yes - PULMONARY Hx Asthma: Yes Hx Bronchitis: Yes Hx Chronic Obstructive Pulmonary Disease (COPD): Yes (Emphysema) Hx Emphysema: Yes Hx Pneumonia: Yes Hx Sleep Apnea: Yes (ON DALIRESP) - NEUROLOGICAL HX Cerebrovascular Accident: No - HEENT Hx HEENT Problems: Yes Hx Cataracts: Yes (left cataract removed, r cataract) Hx Deafness: No Hx Difficulty Chewing: No Hx Epistaxis: No Hx Glaucoma: No Hx Macular Degeneration: No Other/Comment: wears eyeglasses for distance - RENAL Hx Chronic Kidney Disease: Yes Hx Kidney Stones: Yes - ENDOCRINE/METABOLIC 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 - MUSCULOSKELETAL/RHEUMATOLOGICAL Hx Falls: No - GASTROINTESTINAL Hx Gastritis: No - PSYCHIATRIC Hx Substance Use: No - SURGICAL HISTORY Hx Surgeries: Yes Hx Cataract Extraction: Yes (left eye, right eye) Hx Cardiac Catheterization: Yes (11/2015) Hx Eye Surgery: Yes Hx Pulmonary Surgery: Yes Other/Comment: colon resection with right ileostomy - ANESTHESIA Hx Anesthesia: Yes Hx Anesthesia Reactions: No Hx Malignant Hyperthermia: No Meds Allergies/Adverse Reactions: Allergies Allergy/AdvReac Type Severity Reaction Status Date / Time acetaminophen [From Tylenol] Allergy RASH Verified 12/04/17 09:01 FISH Allergy SWELLING Verified 12/04/17 09:01 shrimp Allergy SHORTNESS Verified 12/04/17 09:01 OF BREATH IV dye Allergy Severe ANAPHYLAXIS Uncoded 11/14/17 15:19 - Medications Medications: Current Medications Albuterol/Ipratropium (Duoneb 3 Mg/0.5 Mg (3 Ml) Ud) 3 ml INH RQ6 [facility] Last Admin: 01/26/18 08:20 Dose: 3 ml Alprazolam (Xanax) 0.5 mg PO Q12 [facility] Stop: 02/02/18 10:01 Last Admin: 01/26/18 09:47 Dose: Not Given Diltiazem HCl (Cardizem) 60 mg PO TID [facility] Last Admin: 01/26/18 09:47 Dose: Not Given Enoxaparin Sodium (Lovenox) 40 mg SC DAILY [facility] Last Admin: 01/26/18 09:46 Dose: 40 mg Fentanyl (Fentanyl) 25 mcg IVP Q4H PRN PRN Reason: pain Last Admin: 01/26/18 09:46 Dose: 25 mcg Hydromorphone HCl (Dilaudid) 0.5 mg IVP Q4H PRN PRN Reason: Pain, severe (8-10) Lactated Ringer's (Lactated Ringer's) 1,000 mls @ 125 mls/hr IV .Q8H [facility] Last Admin: 01/26/18 07:15 Dose: 125 mls/hr Cefepime HCl (Maxipime Iv 1 Gm Premix) 1 gm in 50 mls @ 100 mls/hr IVPB Q12H [facility] PRN Reason: Protocol Metronidazole (Flagyl) 500 mg in 100 mls @ 100 mls/hr IVPB Q8 [facility] PRN Reason: Protocol Vancomycin HCl 1,000 mg/ (Sodium Chloride) 250 mls @ 166.6 mls/hr IVPB Q12H [facility] PRN Reason: Protocol Insulin Aspart (Novolog) 0 unit SC ACHS [facility] PRN Reason: Protocol Last Admin: 01/26/18 11:55 Dose: Not Given Ketorolac Tromethamine (Toradol) 15 mg IVP Q6 [facility] Montelukast Sodium (Singulair) 10 mg PO HS [facility] Ondansetron HCl (Zofran Inj) 4 mg IVP Q4 PRN PRN Reason: Nausea/Vomiting Last Admin: 01/26/18 09:46 Dose: 4 mg Pantoprazole Sodium (Protonix Inj) 40 mg IVP DAILY [facility] Last Admin: 01/26/18 09:46 Dose: 40 mg Fluticasone/Salmeterol (Advair Diskus 250/50) 1 puff INH BID [facility] Last Admin: 01/26/18 09:09 Dose: Not Given Physical Exam - Constitutional Appears: In Acute Distress, Chronically Ill Additional comments: on BIPAP - Head Exam Head Exam: ATRAUMATIC, NORMAL INSPECTION, NORMOCEPHALIC - Eye Exam Eye Exam: EOMI, Normal appearance, PERRL Pupil Exam: PERRL - ENT Exam ENT Exam: Mucous Membranes Dry Additional comments: on BIPAP, NGT with minimal output - Neck Exam Neck exam: Positive for: Full Rom, Normal Inspection - Respiratory Exam Respiratory Exam: Rhonchi, Respiratory Distress - Cardiovascular Exam Cardiovascular Exam: Tachycardia, +S1, +S2 - GI/Abdominal Exam GI & Abdominal Exam: Distended, Normal Bowel Sounds, Tenderness. absent: Organomegaly Additional comments: ileostomy bag with soft stool - Rectal Exam Rectal Exam: Deferred - Extremities Exam Extremities exam: Positive for: full ROM, normal inspection - Neurological Exam Neurological exam: Alert, Oriented x3 - Psychiatric Exam Psychiatric exam: Normal Affect, Normal Mood - Skin Skin Exam: Dry, Intact, Normal Color, Warm Results - Vital Signs Recent Vital Signs: Last Vital Signs Temp 98.4 F 01/26/18 04:42 Pulse 76 01/26/18 09:46 Resp 22 01/26/18 06:05 BP 123/83 01/26/18 09:46 Pulse Ox 98 01/26/18 06:05 - Labs Result Diagrams: 01/26/18 00:20 01/26/18 00:20 Labs: Laboratory Results - last 24 hr 01/26/18 01/26/18 01/26/18 00:20 00:20 01:24 WBC 11.7 H RBC 4.36 L Hgb 9.5 L Hct 29.3 L MCV 67.2 L D MCH 21.7 L MCHC 32.3 L RDW 17.5 H Plt Count 349 D MPV 7.4 Neut % (Auto) 78.8 H Lymph % (Auto) 12.4 L [place] % (Auto) 6.4 Eos % (Auto) 1.4 Baso % (Auto) 1.0 Neut # (Auto) 9.2 H Lymph # (Auto) 1.4 [place] # (Auto) 0.8 Eos # (Auto) 0.2 Baso # (Auto) 0.1 Sodium 140 Potassium 3.6 Chloride 100 Carbon Dioxide 29 Anion Gap 15 BUN 10 Creatinine 0.8 Est GFR ( Amer) > 60 Est GFR (Non-Af Amer) > 60 POC Glucose (mg/dL) Random Glucose 111 H Lactic Acid 0.8 Calcium 9.5 Total Bilirubin 0.5 AST 26 ALT 49 Alkaline Phosphatase 140 H NT-Pro-B Natriuret Pep Total Protein 6.7 Albumin 3.9 Globulin 2.8 Albumin/Globulin Ratio 1.4 Lipase 60 01/26/18 01/26/18 01/26/18 03:07 08:18 11:48 WBC RBC Hgb Hct MCV MCH MCHC RDW Plt Count MPV Neut % (Auto) Lymph % (Auto) [place] % (Auto) Eos % (Auto) Baso % (Auto) Neut # (Auto) Lymph # (Auto) [place] # (Auto) Eos # (Auto) Baso # (Auto) Sodium Potassium Chloride Carbon Dioxide Anion Gap BUN Creatinine Est GFR ( Amer) Est GFR (Non-Af Amer) POC Glucose (mg/dL) 235 H 116 H Random Glucose Lactic Acid Calcium Total Bilirubin AST ALT Alkaline Phosphatase NT-Pro-B Natriuret Pep 102 Total Protein Albumin Globulin Albumin/Globulin Ratio Lipase Assessment & Plan - Assessment and Plan (Free Text) Assessment: This is a 67yM with past medical history of colon cancer s/p ileostomy in 2017 presenting with abdominal pain and vomiting. 1. SBO 2. Ileostomy 3. Hx of colon cancer Plan: Continue supportive care with pain control and anti-emetics -CT imaging reviewed, SBO -NPO -NGT -IVF hydration -Respiratory support -Surgical and medical management primary teams -No plan for any GI intervention at this time -Pt will need to followup outpt for screening colonoscopy -Please call with any questions or concerns <Sidney Narayan - Last Filed: 01/26/18 15:40> Meds - Medications Medications: Current Medications Albuterol/Ipratropium (Duoneb 3 Mg/0.5 Mg (3 Ml) Ud) 3 ml INH RQ6 [facility] Last Admin: 01/26/18 13:48 Dose: 3 ml Alprazolam (Xanax) 0.5 mg PO Q12 [facility] Stop: 02/02/18 10:01 Last Admin: 01/26/18 09:47 Dose: Not Given Diltiazem HCl (Cardizem) 60 mg PO TID [facility] Last Admin: 01/26/18 14:04 Dose: 60 mg Enoxaparin Sodium (Lovenox) 40 mg SC DAILY [facility] Last Admin: 01/26/18 09:46 Dose: 40 mg Fentanyl (Fentanyl) 25 mcg IVP Q4H PRN PRN Reason: pain Last Admin: 01/26/18 09:46 Dose: 25 mcg Hydromorphone HCl (Dilaudid) 0.5 mg IVP Q4H PRN PRN Reason: Pain, severe (8-10) Lactated Ringer's (Lactated Ringer's) 1,000 mls @ 125 mls/hr IV .Q8H [facility] Last Admin: 01/26/18 14:20 Dose: Not Given Cefepime HCl (Maxipime Iv 1 Gm Premix) 1 gm in 50 mls @ 100 mls/hr IVPB Q12H [facility] PRN Reason: Protocol Metronidazole (Flagyl) 500 mg in 100 mls @ 100 mls/hr IVPB Q8 [facility] PRN Reason: Protocol Last Admin: 01/26/18 14:03 Dose: 100 mls/hr Vancomycin HCl 1,000 mg/ (Sodium Chloride) 250 mls @ 166.6 mls/hr IVPB Q12H [facility] PRN Reason: Protocol Insulin Aspart (Novolog) 0 unit SC ACHS [facility] PRN Reason: Protocol Last Admin: 01/26/18 11:55 Dose: Not Given Ketorolac Tromethamine (Toradol) 15 mg IVP Q6 [facility] Last Admin: 01/26/18 12:21 Dose: 15 mg Montelukast Sodium (Singulair) 10 mg PO HS [facility] Ondansetron HCl (Zofran Inj) 4 mg IVP Q4 PRN PRN Reason: Nausea/Vomiting Last Admin: 01/26/18 09:46 Dose: 4 mg Pantoprazole Sodium (Protonix Inj) 40 mg IVP DAILY [facility] Last Admin: 01/26/18 09:46 Dose: 40 mg Fluticasone/Salmeterol (Advair Diskus 250/50) 1 puff INH RBID [facility] Results - Vital Signs Recent Vital Signs: Last Vital Signs Temp 98.4 F 01/26/18 04:42 Pulse 120 H 01/26/18 14:03 Resp 22 01/26/18 06:05 BP 124/76 01/26/18 14:03 Pulse Ox 98 01/26/18 06:05 - Labs Result Diagrams: 01/26/18 00:20 01/26/18 00:20 Labs: Laboratory Results - last 24 hr 01/26/18 01/26/18 01/26/18 00:20 00:20 01:24 WBC 11.7 H RBC 4.36 L Hgb 9.5 L Hct 29.3 L MCV 67.2 L D MCH 21.7 L MCHC 32.3 L RDW 17.5 H Plt Count 349 D MPV 7.4 Neut % (Auto) 78.8 H Lymph % (Auto) 12.4 L [place] % (Auto) 6.4 Eos % (Auto) 1.4 Baso % (Auto) 1.0 Neut # (Auto) 9.2 H Lymph # (Auto) 1.4 [place] # (Auto) 0.8 Eos # (Auto) 0.2 Baso # (Auto) 0.1 Sodium 140 Potassium 3.6 Chloride 100 Carbon Dioxide 29 Anion Gap 15 BUN 10 Creatinine 0.8 Est GFR ( Amer) > 60 Est GFR (Non-Af Amer) > 60 POC Glucose (mg/dL) Random Glucose 111 H Lactic Acid 0.8 Calcium 9.5 Total Bilirubin 0.5 AST 26 ALT 49 Alkaline Phosphatase 140 H NT-Pro-B Natriuret Pep Total Protein 6.7 Albumin 3.9 Globulin 2.8 Albumin/Globulin Ratio 1.4 Lipase 60 Urine Color Urine Clarity Urine pH Ur Specific [place] Urine Protein Urine Glucose (UA) Urine Ketones Urine Blood Urine Nitrate Urine Bilirubin Urine Urobilinogen Ur Leukocyte Esterase Urine WBC (Auto) Urine RBC (Auto) Ur Squamous Epith Cells 01/26/18 01/26/18 01/26/18 03:07 08:18 11:48 WBC RBC Hgb Hct MCV MCH MCHC RDW Plt Count MPV Neut % (Auto) Lymph % (Auto) [place] % (Auto) Eos % (Auto) Baso % (Auto) Neut # (Auto) Lymph # (Auto) [place] # (Auto) Eos # (Auto) Baso # (Auto) Sodium Potassium Chloride Carbon Dioxide Anion Gap BUN Creatinine Est GFR ( Amer) Est GFR (Non-Af Amer) POC Glucose (mg/dL) 235 H 116 H Random Glucose Lactic Acid Calcium Total Bilirubin AST ALT Alkaline Phosphatase NT-Pro-B Natriuret Pep 102 Total Protein Albumin Globulin Albumin/Globulin Ratio Lipase Urine Color Urine Clarity Urine pH Ur Specific [place] Urine Protein Urine Glucose (UA) Urine Ketones Urine Blood Urine Nitrate Urine Bilirubin Urine Urobilinogen Ur Leukocyte Esterase Urine WBC (Auto) Urine RBC (Auto) Ur Squamous Epith Cells 01/26/18 15:20 WBC RBC Hgb Hct MCV MCH MCHC RDW Plt Count MPV Neut % (Auto) Lymph % (Auto) [place] % (Auto) Eos % (Auto) Baso % (Auto) Neut # (Auto) Lymph # (Auto) [place] # (Auto) Eos # (Auto) Baso # (Auto) Sodium Potassium Chloride Carbon Dioxide Anion Gap BUN Creatinine Est GFR ( Amer) Est GFR (Non-Af Amer) POC Glucose (mg/dL) Random Glucose Lactic Acid Calcium Total Bilirubin AST ALT Alkaline Phosphatase NT-Pro-B Natriuret Pep Total Protein Albumin Globulin Albumin/Globulin Ratio Lipase Urine Color Yellow Urine Clarity Hazy Urine pH 6.0 Ur Specific [place] 1.019 Urine Protein Negative Urine Glucose (UA) Normal Urine Ketones Negative Urine Blood Negative Urine Nitrate Negative Urine Bilirubin Negative Urine Urobilinogen Normal Ur Leukocyte Esterase Trace Urine WBC (Auto) 5 Urine RBC (Auto) 3 Ur Squamous Epith Cells 1 Attending/Attestation - Attestation I have personally seen and examined this patient.: Yes I have fully participated in the care of the patient.: Yes I have reviewed all pertinent clinical information: Yes Notes (Text): 01/26/18 15:38 This is a 67 year old M with past medical history of colon cancer s/p ileostomy in 2016 presenting with abdominal pain and vomiting with Ct image showing small bowel obstruction. Ostomy with output and nGT in place. Supportive care. NPO. Rest of management as per surgical team. Up to date with colonoscopy in 10/2017 post cancer resection. No plan for any GI intervention at this time. Rest of plan as per surgical team
[2018-01-26] MEDS: metroNIDAZOLE IV 500 mg/100 ml 500 MG/100 ML BAG IVPB SCH ×2 (14:03→21:52)
--- NOTE | 2018-01-26 15:27 | RAD ---
HISTORY: NGT placement COMPARISON: No prior. FINDINGS: LUNGS: No definite infiltrate. Opacity at right base may be artifactual. However, followup advised. No other abnormal opacity. . PLEURA: No significant pleural effusion identified, no pneumothorax apparent. CARDIOVASCULAR: Left PICC catheter terminates in the region of the superior vena cava. Nasogastric tube extends to the left upper quadrant of the abdomen. OSSEOUS STRUCTURES: No significant abnormalities. VISUALIZED UPPER ABDOMEN: Normal. OTHER FINDINGS: None. IMPRESSION: Opacity at right base. Questionable significance. Follow-up advised. New left PICC catheter and nasogastric tube.
[2018-01-26 15:33] LABS: SQUAMOUS EPITHIAL 1 /hpf (0-5); URINE BILIRUBIN NEGATIVE (NEGATIVE); URINE BLOOD NEGATIVE (NEGATIVE); URINE CLARITY Hazy (Clear); URINE COLOR Yellow (YELLOW); URINE GLUCOSE (UA) NORMAL (Normal); URINE LEUKOCYTE ESTERASE TRACE Leu/uL (Negative); URINE PROTEIN NEGATIVE (NEGATIVE); URINE UROBILINOGEN NORMAL mg/dL (0.2-1.0)
--- NOTE | 2018-01-26 16:22 | RAD ---
HISTORY: obstruction COMPARISON: No prior. FINDINGS: BOWEL: Multiple dilated small bowel loops centrally within the abdomen suspicious for mechanical bowel obstruction. Paucity of gas seen within large bowel. No hepatic or splenic enlargement. No masses or abnormal intra-abdominal calcifications. BONES: Normal. OTHER FINDINGS: None. IMPRESSION: Findings suspicious for mechanical small bowel obstruction.
[2018-01-26 16:38] VITALS: RESP 20
--- NOTE | 2018-01-26 17:31 | CT ---
PROCEDURE: CT Abdomen and Pelvis without intravenous contrast HISTORY: obstruction COMPARISON: 12/12/2017 TECHNIQUE: Without contrast.. Contrast dose: 0 Radiation dose: Total exam DLP = 421.92 mGy-cm. This CT exam was performed using one or more of the following dose reduction techniques: Automated exposure control, adjustment of the mA and/or kV according to patient size, and/or use of iterative reconstruction technique. FINDINGS: LOWER THORAX: Unremarkable. LIVER: Normal size, contour and attenuation. Nonspecific 1.7 cm low-attenuation lesion in the lateral segment left hepatic lobe, unchanged since at least 04/16/2017. No other mass. Smooth contour. No biliary dilatation. GALLBLADDER AND BILE DUCTS: Unremarkable. PANCREAS: Unremarkable. No gross lesion or ductal dilatation. SPLEEN: Unremarkable. ADRENALS: Unremarkable. No mass. KIDNEYS AND URETERS: 2 mm nonobstructing calculus mid right kidney. No left renal calculus. No mass or hydronephrosis. VASCULATURE: Unremarkable. No aortic aneurysm. BOWEL: Mechanical small-bowel obstruction in the mid left abdomen. The point of obstruction is best demonstrated on series 3, image 91 and series 602, image 90. This is likely in the distal jejunum, proximal ileal region. There is a spigelian hernia on the right side containing a loop of distal ileum. There is no evidence of bowel obstruction at this point. Surgical sutures are seen about this hernia. Surgical repair of this hernia is evident on prior CT of 12/12/2017. There is an apparent ostomy arising from this herniated bowel loop. Please correlate clinically. APPENDIX: Not identified PERITONEUM: Unremarkable. No free fluid. No free air. LYMPH NODES: Unremarkable. No enlarged lymph nodes. BLADDER: Unremarkable. REPRODUCTIVE: Normal prostate BONES: No acute fracture. OTHER FINDINGS: None. IMPRESSION: Mechanical small-bowel obstruction. Point of obstruction identified distal jejunum/ proximal ileum. Spigelian hernia right lower quadrant. Questionable ostomy associated with this herniated bowel please correlate clinically.
[2018-01-26] MEDS: Cefepime IV 1 gm in Dextrose 1 GM/50 ML BAG IVPB SCH (17:42)
[2018-01-26] MEDS: Fluticasone-Salmeterol 250-50mcg Diskus INH SCH (19:45)
--- NOTE | 2018-01-27 00:46 | CP.PCM.HP ---
History of Present Illness - History of Present Illness History of Present Illness: Patient is a 67 yo male w HO colon CA s/p ileostomy and colectomy in 2017 came with abdominal pain. Pain was sudden yesterday. also reports vomiting. Pt came to Doctor's Emilia's office yesterday for follow up. Soon after leaving his office he started to have pain. Pain is around the epigastric area. Last BM was yesterday. He normally has regular BM. Patient has multiple visits to ER for complaints of SOB in the past. Patient was recently admitted 10/2017 for sigmoid anastomosis surgery due to colon cancer. Ileostomy was created. On this admission Ct abd/pelvis was significant for SBO and on 12/06/17 patient had SBR with closure of illeostomy. In post op period patient developed fistula which was treated conservatively. Further more the abdominal wound got infected as well as blood. Both C&S came back positive. Pt recently went to OR for resection of rectal/giovanna rectal abcess. Pt had episode of emesis in ED. NGT placed. PMH: COPD,CHF, steroid induced DM, colon cancer, illeostomy creation PSH: See above Soc. Hx; Sally, has son and daughter, lives at home Present on Admission - Present on Admission Any Indicators Present on Admission: No Past Patient History - Infectious Disease Hx of Infectious Diseases: None - Past Medical History & Family History Past Medical History?: Yes - Past Social History Smoking Status: Former Smoker - CARDIAC Hx Cardia Arrhythmia: Yes (SVT) Hx Congestive Heart Failure: Yes Hx Hypercholesterolemia: Yes Hx Hypertension: Yes - PULMONARY Hx Asthma: Yes Hx Bronchitis: Yes Hx Chronic Obstructive Pulmonary Disease (COPD): Yes (Emphysema) Hx Emphysema: Yes Hx Pneumonia: Yes Hx Sleep Apnea: Yes (ON DALIRESP) - NEUROLOGICAL HX Cerebrovascular Accident: No - HEENT Hx HEENT Problems: Yes Hx Cataracts: Yes (left cataract removed, r cataract) Hx Deafness: No Hx Difficulty Chewing: No Hx Epistaxis: No Hx Glaucoma: No Hx Macular Degeneration: No Other/Comment: wears eyeglasses for distance - RENAL Hx Chronic Kidney Disease: Yes Hx Kidney Stones: Yes - ENDOCRINE/METABOLIC 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 - MUSCULOSKELETAL/RHEUMATOLOGICAL Hx Arthritis: Yes (BACK) Hx Fractures: No - GASTROINTESTINAL Hx Gastritis: No - PSYCHIATRIC Hx Anxiety: Yes Hx Substance Use: No - SURGICAL HISTORY Hx Surgeries: Yes Hx Cataract Extraction: Yes (left eye, right eye) Hx Cardiac Catheterization: Yes (11/2015) Hx Eye Surgery: Yes Hx Pulmonary Surgery: Yes Other/Comment: colon resection with right ileostomy - ANESTHESIA Hx Anesthesia: Yes Hx Anesthesia Reactions: No Hx Malignant Hyperthermia: No Meds Allergies/Adverse Reactions: Allergies Allergy/AdvReac Type Severity Reaction Status Date / Time acetaminophen [From Tylenol] Allergy RASH Verified 12/04/17 09:01 FISH Allergy SWELLING Verified 12/04/17 09:01 shrimp Allergy SHORTNESS Verified 12/04/17 09:01 OF BREATH IV dye Allergy Severe ANAPHYLAXIS Uncoded 11/14/17 15:19 Results - Vital Signs Recent Vital Signs: Last Vital Signs Temp 98.0 F 01/26/18 16:36 Pulse 122 H 01/26/18 23:31 Resp 20 01/26/18 16:36 BP 120/78 01/26/18 16:36 Pulse Ox 100 01/26/18 16:36 - Labs Result Diagrams: 01/29/18 06:06 01/29/18 06:06 Labs: Laboratory Results - last 24 hr 01/26/18 01/26/18 01/26/18 01:24 03:07 08:18 POC Glucose (mg/dL) 235 H Lactic Acid 0.8 NT-Pro-B Natriuret Pep 102 Urine Color Urine Clarity Urine pH Ur Specific [place] Urine Protein Urine Glucose (UA) Urine Ketones Urine Blood Urine Nitrate Urine Bilirubin Urine Urobilinogen Ur Leukocyte Esterase Urine WBC (Auto) Urine RBC (Auto) Ur Squamous Epith Cells 01/26/18 01/26/18 01/26/18 11:48 15:20 16:09 POC Glucose (mg/dL) 116 H 124 H Lactic Acid NT-Pro-B Natriuret Pep Urine Color Yellow Urine Clarity Hazy Urine pH 6.0 Ur Specific [place] 1.019 Urine Protein Negative Urine Glucose (UA) Normal Urine Ketones Negative Urine Blood Negative Urine Nitrate Negative Urine Bilirubin Negative Urine Urobilinogen Normal Ur Leukocyte Esterase Trace Urine WBC (Auto) 5 Urine RBC (Auto) 3 Ur Squamous Epith Cells 1 01/26/18 21:04 POC Glucose (mg/dL) 106 Lactic Acid NT-Pro-B Natriuret Pep Urine Color Urine Clarity Urine pH Ur Specific [place] Urine Protein Urine Glucose (UA) Urine Ketones Urine Blood Urine Nitrate Urine Bilirubin Urine Urobilinogen Ur Leukocyte Esterase Urine WBC (Auto) Urine RBC (Auto) Ur Squamous Epith Cells
--- NOTE | 2018-01-27 01:00 | CON ---
DATE: 01/26/2018 REASON FOR CONSULTATION: Sinus tachycardia and shortness of breath, HISTORY OF PRESENT ILLNESS: The patient is a 67 years old male who has history of advanced chronic obstructive lung disease, history of paroxysmal atrial fibrillation in the past, history of surgery for colorectal cancer with ileostomy that was revised a few months ago and recent history of incision and drainage of perianal abscess. The patient was transferred to subacute rehab last month after prolonged hospitalization course. The patient was admitted yesterday because of abdominal pain, distention. The patient denies any chest pain. According to the , the patient is also experiencing some depression symptoms, stating to her that he does not want to go through this anymore. SOCIAL HISTORY: The patient is a former smoker. He is . Lives with his . MEDICATIONS: Advair 1 puff twice a day, Cardizem 60 mg t.i.d. that is on hold now, albuterol inhaler every 6 hours, Fentanyl 25 mcg intravenously every 4 hours p.r.n. for pain, Flagyl 500 mg intravenously every 8 hours, lactated Ringer's infusion at 125 mL an hour, Lovenox 40 mg subcutenously once a day, Maxipime at 1 gm intravenously every 12 hours, Singulair 10 mg once a day, Vancomycin 1 gm intravenously every 12 hours, Xanax 0.5 mg twice a day, Zofran 4 mg p.o. every 4 hours. REVIEW OF SYSTEMS: No reported chest pain. No fever or chills as per the . No melena or hematemesis. PHYSICAL EXAMINATION: GENERAL: The patient is an elderly male who is currently sedated. VITAL SIGNS: Blood pressure 136/85, heart rate 124, temperature 98.4, respirations 22. HEENT: Pale conjunctiva. CHEST: Absent breath sounds all over the bases. HEART: S1 and S2, regular and distant. ABDOMEN: Absent bowel sounds. EXTREMITIES: No edema and muscle wasting is noted. DIAGNOSTICS: EKG reveals sinus tachycardia at the rate of 117, APCs were noted. Chest x-ray revealed COPD picture. There is no definite infiltrate or effusion. Most recent echo in November, normal left ventricular systolic function and normal segmental wall motion and normal right ventricular systolic function. Cardiac catheterization performed in 11/2015, revealed unremarkable coronary circulation with normal left ventricular systolic function. LABORATORY DATA: Hemoglobin and hematocrit 9.5 and 29.3, white count 11.7, platelet count 349,000. SMA-7 sodium 140, potassium 3.6, chloride 100, CO2 of 29, glucose 111, BUN 10, creatinine 0.8, proBNP 102. Lipase within normal limit. ASSESSMENT: 1. Sinus tachycardia, which is physiologic to the patient's possible ileus or mechanical intestinal obstruction as well as chronic obstructive pulmonary disease and possibility of underlying sepsis. 2. Hypertension. 3. Chronic obstructive lung disease. 4. Rule out sepsis. RECOMMENDATIONS: Continue current bronchodilator including Advair, Singulair. Continue current intravenous antibiotics including IV Flagyl, IV Maxipime and IV vancomycin. I will follow official reports of the pelvic and abdomen CT scan. Follow up blood culture results that were taken yesterday. Mukesh Correia MD
[2018-01-27] MEDS: Albuterol-Ipratrop 3 mg / 0.5 (3 ml) UD INH SCH ×4 (01:15→20:00)
[2018-01-27] MEDS: Cefepime IV 1 gm in Dextrose 1 GM/50 ML BAG IVPB SCH ×2 (04:15→17:54)
[2018-01-27] MEDS: metroNIDAZOLE IV 500 mg/100 ml 500 MG/100 ML BAG IVPB SCH ×3 (05:04→21:44)
[2018-01-27] MEDS: Lactated Ringer's 1,000 ML IV SCH ×4 (06:10→21:42)
[2018-01-27] MEDS: (Novolog) Insulin Aspart, Recombinant 100 u/ml 10 ml vial SC SCH ×4 (07:10→21:48)
[2018-01-27 07:37] LABS: BASO # 0.1 K/uL (0.0-0.2); BASO % 0.7 % (0.0-2.0); EOS # 0.1 K/uL (0.0-0.7); EOS % 1.7 % (0.0-4.0); HEMOGLOBIN 8.8 g/dL (12.0-18.0); LYMPH # 0.8 K/uL (1.0-4.3); LYMPH % 9.4 % (20.0-40.0); MEAN CELL VOLUME 67.4 fL (80.0-94.0); MEAN CORPUSCULAR HEMOGLOBIN 21.6 pg (27.0-31.0); MEAN CORPUSCULAR HGB CONC 32.1 g/dL (33.0-37.0); MEAN PLATELET VOLUME 7.9 fL (7.2-11.7); MONO # 0.6 K/uL (0.0-0.8); MONO % 7.4 % (0.0-10.0); NEUT # 6.6 K/uL (1.8-7.0); NEUT % 80.8 % (50.0-75.0); NRBC % 0.1 % (0.0-2.0); PLATELET COUNT 343 K/uL (130-400); RBC 4.05 Mil/uL (4.40-5.90); RED CELL DISTRIBUTION WIDTH 17.5 % (11.5-14.5); WHITE BLOOD COUNT 8.1 K/uL (4.8-10.8)
[2018-01-27] MEDS: Fluticasone-Salmeterol 250-50mcg Diskus INH SCH ×2 (07:50→20:01)
[2018-01-27 08:05] LABS: ALB/GLOB RATIO 1.4 (1.0-2.1); ALBUMIN 3.5 g/dL (3.5-5.0); ALT/SGPT 48 U/L (21-72); AST/SGOT 31 U/L (17-59); BLOOD UREA NITROGEN 6 mg/dL (9-20); CALCIUM 8.5 mg/dl (8.6-10.4); GFR AFRICAN-AMERICAN > 60; GFR NON-AFRICAN AMERICAN > 60
[2018-01-27 09:21] LABS: ANISOCYTOSIS MODERATE; BANDS 1 % (0-2); EOSINOPHIL 3 % (0-4); LYMPHOCYTE 9 % (20-40); MONOCYTE 6 % (0-10); NEUTROPHIL 81 % (50-75); PLATELET ESTIMATE NORMAL (NORMAL); TOTAL CELLS COUNTED 100
[2018-01-27 09:22] LABS: BURR CELLS SLIGHT; GIANT PLATELETS PRESENT; HYPOCHROMIC SLIGHT; LARGE PLATELETS PRESENT; OVALOCYTES SLIGHT; POIKILOCYTOSIS SLIGHT; POLYCHROMIC SLIGHT; TOXIC GRANULATION PRESENT
[2018-01-27] MEDS: Enoxaparin 40 mg Syringe SC SCH (09:54)
[2018-01-27] MEDS: Potassium Chloride 20 mEq ER Tab PO SCH ×3 (09:54→13:53)
--- NOTE | 2018-01-27 10:18 | CP.PCM.PN ---
Subjective - Date & Time of Evaluation Date of Evaluation: 01/27/18 Time of Evaluation: 07:00 - Subjective Subjective: General Surgery Progress note For Dr. Nieto This 67M was seen and evaluated this AM at bedside. No acute events reported overnight. Patient abdomen soft this AM denying abdominal pain, Objective - Vital Signs/Intake and Output Vital Signs (last 24 hours): Temp Pulse Resp BP Pulse Ox 99.7 F H 101 H 20 120/74 100 01/27/18 07:40 01/27/18 09:53 01/27/18 07:40 01/27/18 09:53 01/27/18 07:40 Intake and Output: 01/27/18 01/27/18 06:59 18:59 Intake Total 2100 Output Total 850 Balance 1250 - Medications Medications: Current Medications Albuterol/Ipratropium (Duoneb 3 Mg/0.5 Mg (3 Ml) Ud) 3 ml INH RQ6 [facility] Last Admin: 01/27/18 07:50 Dose: 3 ml Alprazolam (Xanax) 0.5 mg PO Q12 [facility] Stop: 02/02/18 10:01 Last Admin: 01/27/18 09:54 Dose: 0.5 mg Diltiazem HCl (Cardizem) 60 mg PO TID [facility] Last Admin: 01/27/18 09:53 Dose: 60 mg Enoxaparin Sodium (Lovenox) 40 mg SC DAILY [facility] Last Admin: 01/27/18 09:54 Dose: 40 mg Fentanyl (Fentanyl) 25 mcg IVP Q4H PRN PRN Reason: pain Last Admin: 01/26/18 09:46 Dose: 25 mcg Hydromorphone HCl (Dilaudid) 0.5 mg IVP Q4H PRN PRN Reason: Pain, severe (8-10) Lactated Ringer's (Lactated Ringer's) 1,000 mls @ 125 mls/hr IV .Q8H [facility] Last Admin: 01/27/18 06:10 Dose: 125 mls/hr Cefepime HCl (Maxipime Iv 1 Gm Premix) 1 gm in 50 mls @ 100 mls/hr IVPB Q12H [facility] PRN Reason: Protocol Last Admin: 01/27/18 04:15 Dose: 100 mls/hr Metronidazole (Flagyl) 500 mg in 100 mls @ 100 mls/hr IVPB Q8 [facility] PRN Reason: Protocol Last Admin: 01/27/18 05:04 Dose: 100 mls/hr Vancomycin HCl 1,000 mg/ (Sodium Chloride) 200 mls @ 166.6 mls/hr IVPB Q12H [facility] PRN Reason: Protocol Last Admin: 01/27/18 06:20 Dose: 166.6 mls/hr Insulin Aspart (Novolog) 0 unit SC ACHS [facility] PRN Reason: Protocol Last Admin: 01/27/18 07:10 Dose: Not Given Ketorolac Tromethamine (Toradol) 15 mg IVP Q6 [facility] Last Admin: 01/27/18 05:49 Dose: 15 mg Montelukast Sodium (Singulair) 10 mg PO HS [facility] Last Admin: 01/26/18 21:48 Dose: 10 mg Ondansetron HCl (Zofran Inj) 4 mg IVP Q4 PRN PRN Reason: Nausea/Vomiting Last Admin: 01/26/18 09:46 Dose: 4 mg Pantoprazole Sodium (Protonix Inj) 40 mg IVP DAILY [facility] Last Admin: 01/27/18 09:53 Dose: 40 mg Potassium Chloride (K-Dur 20 Meq Er Tab) 20 meq PO Q2 [facility] Stop: 01/27/18 14:01 Last Admin: 01/27/18 09:54 Dose: 20 meq Fluticasone/Salmeterol (Advair Diskus 250/50) 1 puff INH RBID [facility] Last Admin: 01/27/18 07:50 Dose: 1 puff - Labs Labs: 01/27/18 07:23 01/27/18 07:23 - Constitutional Appears: Non-toxic, No Acute Distress - Head Exam Head Exam: ATRAUMATIC, NORMOCEPHALIC - Eye Exam Eye Exam: EOMI - ENT Exam ENT Exam: Mucous Membranes Moist - Respiratory Exam Respiratory Exam: NORMAL BREATHING PATTERN - Cardiovascular Exam Cardiovascular Exam: +S1, +S2 - GI/Abdominal Exam GI & Abdominal Exam: Soft. absent: Distended, Firm, Guarding, Rigid, Tenderness Additional comments: Output in ostomy bag - Neurological Exam Neurological Exam: Alert, Awake - Psychiatric Exam Psychiatric exam: Normal Affect, Normal Mood - Skin Skin Exam: Dry, Intact Assessment and Plan - Assessment and Plan (Free Text) Assessment: 67M presented with obstructing symptoms Strong output in opstomy bag, minimal NGT output D/C NGT CLD D/W Dr. Emilia Woods PGY2
--- NOTE | 2018-01-27 17:33 | PN ---
DATE: 01/27/2018 SUBJECTIVE: The patient denies chest pain. He is still experiencing abdominal pain and he is still n.p.o. except for meds. No reported ventricular tachycardia. PHYSICAL EXAMINATION: VITAL SIGNS: Blood pressure 120/74, heart rate 101, temperature 99.7, respirations 20. HEENT: Pale conjunctivae. CHEST: Diminished breath sounds over the bases. HEART: S1 and S2 regular. ABDOMEN: Diminished bowel sounds. EXTREMITIES: No edema. LABORATORY DATA: Today's hemoglobin and hematocrit 8.8 and 27.3. White count and platelet count are within normal limits. Today's SMA-7; Sodium 137, potassium 3.2, chloride 99, CO2 is 26, glucose 91, BUN 6, creatinine 0.5. Blood culture negative after 24 hours. ASSESSMENT: 1. Physiological sinus tachycardia. 2. Rule out underlying sepsis. 3. Mechanical small bowel obstruction, the point of obstruction identified to the distal jejunum/proximal ileum. 4. Chronic obstructive lung disease. 5. Hypokalemia. 6. Diabetes mellitus. 7. Anxiety disorder. RECOMMENDATIONS: 1. Continue Cardizem 60 mg t.i.d. 2. IV Dilaudid p.r.n. 3. K-Dur 20 mEq orally was administered today. 4. Continue Lactated Ringer's infusion. 5. Subcutaneous Lovenox 40 mg once a day. 6. Continue IV Maxipime, IV vanco. 7. I did discuss with the if possible to give the patient overnight because of the patient's anxiety episodes. Mukesh Correia MD
[2018-01-28] MEDS: Albuterol-Ipratrop 3 mg / 0.5 (3 ml) UD INH SCH ×4 (01:53→19:24)
[2018-01-28] MEDS: Cefepime IV 1 gm in Dextrose 1 GM/50 ML BAG IVPB SCH ×2 (04:17→17:47)
[2018-01-28] MEDS: metroNIDAZOLE IV 500 mg/100 ml 500 MG/100 ML BAG IVPB SCH ×3 (04:59→21:50)
[2018-01-28] MEDS: Lactated Ringer's 1,000 ML IV SCH ×3 (05:45→15:13)
[2018-01-28 06:30] LABS: BASO % 0.4 % (0.0-2.0); EOS # 0.1 K/uL (0.0-0.7); EOS % 1.8 % (0.0-4.0); HEMOGLOBIN 8.8 g/dL (12.0-18.0); LYMPH # 0.9 K/uL (1.0-4.3); LYMPH % 14.3 % (20.0-40.0); MEAN CELL VOLUME 66.5 fL (80.0-94.0); MEAN CORPUSCULAR HEMOGLOBIN 21.6 pg (27.0-31.0); MEAN CORPUSCULAR HGB CONC 32.5 g/dL (33.0-37.0); MEAN PLATELET VOLUME 7.5 fL (7.2-11.7); MONO # 0.5 K/uL (0.0-0.8); MONO % 8.1 % (0.0-10.0); NEUT # 4.8 K/uL (1.8-7.0); NEUT % 75.4 % (50.0-75.0); RBC 4.1 Mil/uL (4.40-5.90); RED CELL DISTRIBUTION WIDTH 17.4 % (11.5-14.5); WHITE BLOOD COUNT 6.3 K/uL (4.8-10.8)
[2018-01-28 06:47] LABS: ALB/GLOB RATIO 1.3 (1.0-2.1); ALBUMIN 3.3 g/dL (3.5-5.0); ALT/SGPT 43 U/L (21-72); AST/SGOT 30 U/L (17-59); BLOOD UREA NITROGEN 2 mg/dL (9-20); CALCIUM 8.5 mg/dl (8.6-10.4); GFR AFRICAN-AMERICAN > 60; GFR NON-AFRICAN AMERICAN > 60
[2018-01-28] MEDS: (Novolog) Insulin Aspart, Recombinant 100 u/ml 10 ml vial SC SCH ×4 (07:18→21:51)
[2018-01-28] MEDS: Fluticasone-Salmeterol 250-50mcg Diskus INH SCH ×2 (07:25→19:24)
[2018-01-28] MEDS: Enoxaparin 40 mg Syringe SC SCH (09:23)
[2018-01-28] MEDS: Potassium Chloride 20 mEq ER Tab PO SCH (09:24)
--- NOTE | 2018-01-28 13:44 | CP.PCM.PN ---
Subjective - Date & Time of Evaluation Date of Evaluation: 01/28/18 Time of Evaluation: 13:41 - Subjective Subjective: Surgery Pt seen and examined with Dr. Price. Denies fever, nausea, vomiting. Denies BM. Stoma has output. TOlerating CLD. Objective - Vital Signs/Intake and Output Vital Signs (last 24 hours): Temp Pulse Resp BP Pulse Ox 98.0 F 99 H 20 122/76 100 01/28/18 07:30 01/28/18 13:39 01/28/18 07:30 01/28/18 13:39 01/28/18 07:30 Intake and Output: 01/28/18 01/28/18 06:59 18:59 Intake Total 2600 Output Total 900 Balance 1700 - Medications Medications: Current Medications Albuterol/Ipratropium (Duoneb 3 Mg/0.5 Mg (3 Ml) Ud) 3 ml INH RQ6 [facility] Last Admin: 01/28/18 13:00 Dose: 3 ml Alprazolam (Xanax) 0.5 mg PO Q12 [facility] Stop: 02/02/18 10:01 Last Admin: 01/28/18 09:24 Dose: 0.5 mg Diltiazem HCl (Cardizem) 60 mg PO TID [facility] Last Admin: 01/28/18 09:24 Dose: 60 mg Enoxaparin Sodium (Lovenox) 40 mg SC DAILY [facility] Last Admin: 01/28/18 09:23 Dose: 40 mg Fentanyl (Fentanyl) 25 mcg IVP Q4H PRN PRN Reason: pain Last Admin: 01/26/18 09:46 Dose: 25 mcg Hydromorphone HCl (Dilaudid) 0.5 mg IVP Q4H PRN PRN Reason: Pain, severe (8-10) Cefepime HCl (Maxipime Iv 1 Gm Premix) 1 gm in 50 mls @ 100 mls/hr IVPB Q12H [facility] PRN Reason: Protocol Last Admin: 01/28/18 04:17 Dose: 100 mls/hr Metronidazole (Flagyl) 500 mg in 100 mls @ 100 mls/hr IVPB Q8 [facility] PRN Reason: Protocol Last Admin: 01/28/18 04:59 Dose: 100 mls/hr Vancomycin HCl 1,000 mg/ (Sodium Chloride) 200 mls @ 166.6 mls/hr IVPB Q12H [facility] PRN Reason: Protocol Last Admin: 01/28/18 06:25 Dose: 166.6 mls/hr Lactated Ringer's (Lactated Ringer's) 1,000 mls @ 75 mls/hr IV .[id number] [facility] Insulin Aspart (Novolog) 0 unit SC ACHS [facility] PRN Reason: Protocol Last Admin: 01/28/18 12:17 Dose: Not Given Montelukast Sodium (Singulair) 10 mg PO HS [facility] Last Admin: 01/27/18 21:43 Dose: 10 mg Ondansetron HCl (Zofran Inj) 4 mg IVP Q4 PRN PRN Reason: Nausea/Vomiting Last Admin: 01/26/18 09:46 Dose: 4 mg Pantoprazole Sodium (Protonix Inj) 40 mg IVP DAILY [facility] Last Admin: 01/28/18 09:25 Dose: 40 mg Potassium Chloride (K-Dur 20 Meq Er Tab) 40 meq PO DAILY [facility] Stop: 01/30/18 10:01 Last Admin: 01/28/18 09:24 Dose: 40 meq Fluticasone/Salmeterol (Advair Diskus 250/50) 1 puff INH RBID [facility] Last Admin: 01/28/18 07:25 Dose: 1 puff - Labs Labs: 01/28/18 06:18 01/28/18 06:18 - Constitutional Appears: No Acute Distress - Head Exam Head Exam: ATRAUMATIC, NORMAL INSPECTION, NORMOCEPHALIC - Eye Exam Eye Exam: EOMI, Normal appearance, PERRL Pupil Exam: NORMAL ACCOMODATION, PERRL - ENT Exam ENT Exam: Mucous Membranes Moist, Normal Exam - Neck Exam Neck Exam: Full ROM, Normal Inspection. absent: Lymphadenopathy - Respiratory Exam Respiratory Exam: Clear to Ausculation Bilateral, NORMAL BREATHING PATTERN - Cardiovascular Exam Cardiovascular Exam: REGULAR RHYTHM, +S1, +S2. absent: Murmur - GI/Abdominal Exam GI & Abdominal Exam: Soft, Tenderness, Normal Bowel Sounds. absent: Distended, Firm, Guarding, Rigid Additional comments: Stoma pink, patent. has liquid output. TTP - Exam Exam: NORMAL INSPECTION - Extremities Exam Extremities Exam: Full ROM, Normal Capillary Refill, Normal Inspection. absent : Joint Swelling, Pedal Edema - Back Exam Back Exam: NORMAL INSPECTION - Neurological Exam Neurological Exam: Alert, Awake, CN II-XII Intact, Normal Gait, Oriented x3 - Psychiatric Exam Psychiatric exam: Normal Affect, Normal Mood - Skin Skin Exam: Dry, Intact, Normal Color, Warm Assessment and Plan - Assessment and Plan (Free Text) Assessment: SBO : improving. Denies nausea. stoma has output -FLD -Advance diet as tolerated. -Replete electrolyte as needed -f/u AXR -Ambulate -MEdical management ALEJANDRA Price
[2018-01-28] MEDS: HYDROmorphone 0.5 mg/0.5 ml ISec IVP PRN ×2 (15:16→21:58)
--- NOTE | 2018-01-28 15:47 | RAD ---
HISTORY: Small-bowel obstruction COMPARISON: 01/26/2018 abdominal series 01/26/2018 CT abdomen and pelvis. FINDINGS: BOWEL: Dilated proximal loops of small bowel reflective of either earlier incomplete small bowel obstruction. The caliber of dilated loops of small bowel is similar as is the distribution and configuration Right lower quadrant ostomy. BONES: Normal. OTHER FINDINGS: None. IMPRESSION: Persistent dilatation of proximal small bowel loops compatible with incomplete obstruction a finding identified on the prior plain film radiographs and confirmed on CT of the abdomen and pelvis performed 01/26/2018.
--- NOTE | 2018-01-28 20:09 | PN ---
DATE: 01/28/2018 SUBJECTIVE: The patient is allowed clear liquids. He denies retrosternal chest pain. Sinus tachycardia has improved. PHYSICAL EXAMINATION: VITAL SIGNS: Blood pressure 122/76, heart rate 99, temperature 98 degrees Fahrenheit, respirations 20. HEENT: Pale conjunctivae. CHEST: Minimal rhonchi. HEART: S1 and S2 regular. ABDOMEN: Hypoactive bowel sounds, however, more audible compared to yesterday. LABORATORY DATA: .SMA-7: Sodium 136, potassium 3.4, chloride 98, CO2 is 31, glucose 85, BUN 2, creatinine 0.5. Hemoglobin and hematocrit are 8.8 and 27.2, white count and platelet count are within normal limits. ASSESSMENT: 1. Physiological sinus tachycardia. 2 Chronic obstructive lung disease. 3. Improving mechanical small-bowel obstruction. 4. Anemia. 5. Hypokalemia. RECOMMENDATIONS: Continue Cardizem 60 mg t.i.d., IV Dilaudid 0.5 mg p.r.n. every 4 hours, Flagyl 500 mg intravenously daily, vancomycin 1 gm intravenously every 12 hours, K-Dur 40 mEq orally daily, Lovenox 40 mg subcutaneously daily, IV Maxipime at 1 gm every 12 hours. Mukesh Correia MD
--- NOTE | 2018-01-29 00:32 | CP.PCM.PN ---
Subjective - Date & Time of Evaluation Date of Evaluation: 01/28/18 Time of Evaluation: 17:00 - Subjective Subjective: Pt seen and evaluated at bedside Objective - Vital Signs/Intake and Output Vital Signs (last 24 hours): Temp Pulse Resp BP Pulse Ox 97.8 F 123 H 20 121/73 100 01/28/18 15:42 01/28/18 16:00 01/28/18 15:42 01/28/18 15:15 01/28/18 07:30 Intake and Output: 01/28/18 01/29/18 18:59 06:59 Intake Total 850 Output Total 300 Balance 550 - Medications Medications: Current Medications Albuterol/Ipratropium (Duoneb 3 Mg/0.5 Mg (3 Ml) Ud) 3 ml INH RQ6 [facility] Last Admin: 01/28/18 19:24 Dose: 3 ml Alprazolam (Xanax) 0.5 mg PO Q12 [facility] Stop: 02/02/18 10:01 Last Admin: 01/28/18 21:49 Dose: 0.5 mg Diltiazem HCl (Cardizem) 60 mg PO TID [facility] Last Admin: 01/28/18 17:35 Dose: 60 mg Enoxaparin Sodium (Lovenox) 40 mg SC DAILY [facility] Last Admin: 01/28/18 09:23 Dose: 40 mg Fentanyl (Fentanyl) 25 mcg IVP Q4H PRN PRN Reason: pain Last Admin: 01/26/18 09:46 Dose: 25 mcg Hydromorphone HCl (Dilaudid) 0.5 mg IVP Q4H PRN PRN Reason: Pain, severe (8-10) Last Admin: 01/28/18 21:58 Dose: 0.5 mg Cefepime HCl (Maxipime Iv 1 Gm Premix) 1 gm in 50 mls @ 100 mls/hr IVPB Q12H [facility] PRN Reason: Protocol Last Admin: 01/28/18 17:47 Dose: 100 mls/hr Metronidazole (Flagyl) 500 mg in 100 mls @ 100 mls/hr IVPB Q8 [facility] PRN Reason: Protocol Last Admin: 01/28/18 21:50 Dose: 100 mls/hr Vancomycin HCl 1,000 mg/ (Sodium Chloride) 200 mls @ 166.6 mls/hr IVPB Q12H [facility] PRN Reason: Protocol Last Admin: 01/28/18 18:15 Dose: 166.6 mls/hr Lactated Ringer's (Lactated Ringer's) 1,000 mls @ 75 mls/hr IV .[id number] [facility] Last Admin: 01/28/18 15:13 Dose: 75 mls/hr Insulin Aspart (Novolog) 0 unit SC ACHS [facility] PRN Reason: Protocol Last Admin: 01/28/18 21:51 Dose: Not Given Montelukast Sodium (Singulair) 10 mg PO HS [facility] Last Admin: 01/28/18 21:50 Dose: 10 mg Ondansetron HCl (Zofran Inj) 4 mg IVP Q4 PRN PRN Reason: Nausea/Vomiting Last Admin: 01/26/18 09:46 Dose: 4 mg Pantoprazole Sodium (Protonix Ec Tab) 40 mg PO DAILY [facility] Potassium Chloride (K-Dur 20 Meq Er Tab) 40 meq PO DAILY [facility] Stop: 01/30/18 10:01 Last Admin: 01/28/18 09:24 Dose: 40 meq Fluticasone/Salmeterol (Advair Diskus 250/50) 1 puff INH RBID [facility] Last Admin: 01/28/18 19:24 Dose: 1 puff - Labs Labs: 01/28/18 06:18 01/28/18 06:18
[2018-01-29] MEDS: Albuterol-Ipratrop 3 mg / 0.5 (3 ml) UD INH SCH ×4 (01:06→19:12)
[2018-01-29] MEDS: Lactated Ringer's 1,000 ML IV SCH ×2 (03:00→09:08)
[2018-01-29] MEDS: Cefepime IV 1 gm in Dextrose 1 GM/50 ML BAG IVPB SCH ×2 (04:22→17:55)
[2018-01-29] MEDS: metroNIDAZOLE IV 500 mg/100 ml 500 MG/100 ML BAG IVPB SCH ×2 (05:06→13:18)
[2018-01-29] MEDS: HYDROmorphone 0.5 mg/0.5 ml ISec IVP PRN ×2 (06:04→13:16)
[2018-01-29 06:19] LABS: BASO # 0.1 K/uL (0.0-0.2); EOS # 0.2 K/uL (0.0-0.7); EOS % 2.5 % (0.0-4.0); HEMOGLOBIN 8.7 g/dL (12.0-18.0); LYMPH % 16.1 % (20.0-40.0); MEAN CELL VOLUME 66.3 fL (80.0-94.0); MEAN CORPUSCULAR HEMOGLOBIN 21.2 pg (27.0-31.0); MEAN PLATELET VOLUME 7.2 fL (7.2-11.7); MONO # 0.6 K/uL (0.0-0.8); MONO % 9.8 % (0.0-10.0); NEUT # 4.2 K/uL (1.8-7.0); NEUT % 70.6 % (50.0-75.0); RBC 4.09 Mil/uL (4.40-5.90)
--- NOTE | 2018-01-29 07:33 | CP.PCM.PN ---
Subjective - Date & Time of Evaluation Date of Evaluation: 01/27/18 Time of Evaluation: 15:00 - Subjective Subjective: Patient is a 67 yo male w HO colon CA s/p ileostomy and colectomy in 2017 came with abdominal pain. Pain was sudden yesterday. also reports vomiting. Pt came to Doctor's Emilia's office yesterday for follow up. Soon after leaving his office he started to have pain. Pain is around the epigastric area. Last BM was yesterday. He normally has regular BM. Patient has multiple visits to ER for complaints of SOB in the past. Patient was recently admitted 10/2017 for sigmoid anastomosis surgery due to colon cancer. Ileostomy was created. On this admission Ct abd/pelvis was significant for SBO and on 12/06/17 patient had SBR with closure of illeostomy. In post op period patient developed fistula which was treated conservatively. Further more the abdominal wound got infected as well as blood. Both C&S came back positive. Pt recently went to OR for resection of rectal/giovanna rectal abcess. Pt had episode of emesis in ED. NGT placed. Objective - Vital Signs/Intake and Output Vital Signs (last 24 hours): Temp Pulse Resp BP Pulse Ox 98.7 F 100 H 20 127/79 97 01/28/18 23:20 01/29/18 04:16 01/28/18 23:20 01/28/18 23:20 01/28/18 23:20 Intake and Output: 01/29/18 01/29/18 06:59 18:59 Output Total 1200 Balance -1200 - Medications Medications: Current Medications Albuterol/Ipratropium (Duoneb 3 Mg/0.5 Mg (3 Ml) Ud) 3 ml INH RQ6 [facility] Last Admin: 01/29/18 01:06 Dose: 3 ml Alprazolam (Xanax) 0.5 mg PO Q12 [facility] Stop: 02/02/18 10:01 Last Admin: 01/28/18 21:49 Dose: 0.5 mg Diltiazem HCl (Cardizem) 60 mg PO TID [facility] Last Admin: 01/28/18 17:35 Dose: 60 mg Enoxaparin Sodium (Lovenox) 40 mg SC DAILY [facility] Last Admin: 01/28/18 09:23 Dose: 40 mg Fentanyl (Fentanyl) 25 mcg IVP Q4H PRN PRN Reason: pain Last Admin: 01/26/18 09:46 Dose: 25 mcg Hydromorphone HCl (Dilaudid) 0.5 mg IVP Q4H PRN PRN Reason: Pain, severe (8-10) Last Admin: 01/29/18 06:04 Dose: 0.5 mg Cefepime HCl (Maxipime Iv 1 Gm Premix) 1 gm in 50 mls @ 100 mls/hr IVPB Q12H [facility] PRN Reason: Protocol Last Admin: 01/29/18 04:22 Dose: 100 mls/hr Metronidazole (Flagyl) 500 mg in 100 mls @ 100 mls/hr IVPB Q8 [facility] PRN Reason: Protocol Last Admin: 01/29/18 05:06 Dose: 100 mls/hr Vancomycin HCl 1,000 mg/ (Sodium Chloride) 200 mls @ 166.6 mls/hr IVPB Q12H [facility] PRN Reason: Protocol Last Admin: 01/29/18 06:19 Dose: 166.6 mls/hr Lactated Ringer's (Lactated Ringer's) 1,000 mls @ 75 mls/hr IV .[id number] [facility] Last Admin: 01/29/18 03:00 Dose: Not Given Insulin Aspart (Novolog) 0 unit SC ACHS [facility] PRN Reason: Protocol Last Admin: 01/28/18 21:51 Dose: Not Given Montelukast Sodium (Singulair) 10 mg PO HS [facility] Last Admin: 01/28/18 21:50 Dose: 10 mg Ondansetron HCl (Zofran Inj) 4 mg IVP Q4 PRN PRN Reason: Nausea/Vomiting Last Admin: 01/26/18 09:46 Dose: 4 mg Pantoprazole Sodium (Protonix Ec Tab) 40 mg PO DAILY [facility] Potassium Chloride (K-Dur 20 Meq Er Tab) 40 meq PO DAILY [facility] Stop: 01/30/18 10:01 Last Admin: 01/28/18 09:24 Dose: 40 meq Fluticasone/Salmeterol (Advair Diskus 250/50) 1 puff INH RBID [facility] Last Admin: 01/28/18 19:24 Dose: 1 puff - Labs Labs: 01/29/18 06:06 01/28/18 06:18 - Constitutional Appears: Well, Non-toxic - Head Exam Head Exam: ATRAUMATIC, NORMAL INSPECTION, NORMOCEPHALIC - Eye Exam Eye Exam: EOMI, Normal appearance, PERRL Pupil Exam: NORMAL ACCOMODATION - ENT Exam ENT Exam: Mucous Membranes Moist, Normal Exam - Neck Exam Neck Exam: Normal Inspection - Respiratory Exam Respiratory Exam: NORMAL BREATHING PATTERN - Cardiovascular Exam Cardiovascular Exam: REGULAR RHYTHM - GI/Abdominal Exam GI & Abdominal Exam: Tenderness, Normal Bowel Sounds - Back Exam Back Exam: NORMAL INSPECTION - Neurological Exam Neurological Exam: Alert, Awake, CN II-XII Intact Assessment and Plan (1) Abdominal pain Status: Acute (2) CAD (coronary artery disease) Status: Acute (3) COPD (chronic obstructive pulmonary disease) with emphysema Status: Acute (4) Ileostomy dysfunction Status: Acute (5) S/P colon resection Status: Acute (6) Small bowel obstruction Status: Acute (7) Acute and chronic respiratory failure ([id number]) Status: Acute (8) Acute bronchitis with asthma with acute exacerbation Status: Acute (9) Acute exacerbation of chronic obstructive airways disease Status: Acute (10) Acute respiratory distress Status: Acute (11) Allergic Status: Acute (12) Asthma Status: Acute (13) Atypical chest pain Status: Acute (14) Back ache Status: Acute (15) BiPAP (biphasic positive airway pressure) dependence Status: Acute (16) Bronchitis Status: Acute (17) Bronchopneumonia Status: Acute (18) Bronchospasm Status: Acute (19) COPD (chronic obstructive pulmonary disease) Status: Acute (20) COPD (chronic obstructive pulmonary disease) with acute bronchitis Status: Acute (21) COPD exacerbation Status: Acute (22) Cellulitis Status: Acute (23) Chest pain Status: Acute (24) Chr obstructive pulmonary disease w/ acute lower respiratory infxn Status: Acute (25) Chronic congestive heart failure Status: Acute (26) Chronic obstructive lung disease Status: Acute (27) Chronic obstructive pulmonary disease with bronchospasm Status: Acute (28) Chronic respiratory failure Status: Acute (29) Clavicle fracture Status: Acute (30) Colostomy complication Status: Acute (31) Corneal abrasion Status: Acute (32) Dyspnea Status: Acute (33) Electrolyte abnormality Status: Acute (34) Fever Status: Acute (35) Fever Status: Acute (36) Gout Status: Acute (37) Herpes zoster Status: Acute (38) History of colostomy reversal Status: Acute (39) Hoarse voice quality Status: Acute (40) Hyperglycemia Status: Acute (41) Hyponatremia Status: Acute (42) Hyponatremia syndrome Status: Acute (43) Influenza Status: Acute (44) Lumbago Status: Acute (45) Oral thrush Status: Acute (46) Pneumonia Status: Acute (47) Post herpetic neuralgia Status: Acute (48) Post-op pain Status: Acute (49) Prophylactic measure Status: Acute (50) Pulmonary embolism Status: Acute (51) RUQ abdominal pain Status: Acute (52) Rash Status: Acute (53) Respiratory distress Status: Acute (54) Respiratory tract infection Status: Acute (55) S/P colon resection Status: Acute (56) SOB (shortness of breath) Status: Acute (57) SVT (supraventricular tachycardia) Status: Acute (58) Sepsis Status: Acute (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,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 (60) Tachyarrhythmia Status: Acute (61) Tachycardia Status: Acute (62) Acute exacerbation of chronic obstructive pulmonary disease (COPD) Status: Chronic (63) Allergic rhinitis Status: Chronic (64) 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 (65) Allergic rhinitis due to animal hair and dander Status: Chronic (66) Anemia Status: Chronic (67) Anxiety Status: Chronic (68) Bronchiolitis Status: Chronic (69) CHF (congestive heart failure) Status: Chronic (70) Diabetes Status: Chronic (71) PUNEET (generalized anxiety disorder) Status: Chronic (72) Hyperglycemia Status: Chronic (73) Respiratory acidosis Status: Chronic (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 Pain was sudden yesterday. also reports vomiting. Pt came to Doctor's Emilia's office yesterday for follow up. Soon after leaving his office he started to have pain. Pain is around the epigastric area. Last BM was yesterday. He normally has regular BM. Patient has multiple visits to ER for complaints of SOB in the past. Patient was recently admitted 10/2017 for sigmoid anastomosis surgery due to colon cancer. Ileostomy was created. On this admission Ct abd/pelvis was significant for SBO and on 12/06/17 patient had SBR with closure of illeostomy. In post op period patient developed fistula which was treated conservatively. Further more the abdominal wound got infected as well as blood. Both C&S came back positive. Pt recently went to OR for resection of rectal/giovanna rectal abcess. Pt had episode of emesis in ED. NGT placed. Plan: cont. present treatment , will f/u
[2018-01-29] MEDS: Fluticasone-Salmeterol 250-50mcg Diskus INH SCH ×2 (07:41→19:12)
[2018-01-29 07:42] LABS: BLOOD UREA NITROGEN 3 mg/dL (9-20); CALCIUM 8.7 mg/dl (8.6-10.4); GFR AFRICAN-AMERICAN > 60; GFR NON-AFRICAN AMERICAN > 60
[2018-01-29] MEDS: (Novolog) Insulin Aspart, Recombinant 100 u/ml 10 ml vial SC SCH ×3 (09:02→17:56)
[2018-01-29] MEDS ORDERED: Pantoprazole 40 mg EC Tab PO SCH (10:00)
[2018-01-29] MEDS: Enoxaparin 40 mg Syringe SC SCH (10:50)
[2018-01-29] MEDS: Potassium Chloride 20 mEq ER Tab PO SCH (10:52)
--- NOTE | 2018-01-29 12:14 | CARD ---
APPROVED REPORT EKG Measurement Heart [id number] DC [id number] <Conclusion> Sinus tachycardia with premature atrial complexes Otherwise normal ECG
--- NOTE | 2018-01-29 15:01 | CP.PCM.PN ---
Subjective - Date & Time of Evaluation Date of Evaluation: 01/29/18 Time of Evaluation: 14:58 - Subjective Subjective: Surgery Pt seen and examined with Dr. Price. No acute events. Denies fever, nausea. Tolerating Liquid. Small liquid output from stoma. No flatus or BM. Objective - Vital Signs/Intake and Output Vital Signs (last 24 hours): Temp Pulse Resp BP Pulse Ox 98.0 F 121 H 20 123/77 100 01/29/18 07:30 01/29/18 13:00 01/29/18 07:30 01/29/18 13:00 01/29/18 07:30 Intake and Output: 01/29/18 01/29/18 06:59 18:59 Output Total 1200 Balance -1200 - Medications Medications: Current Medications Albuterol/Ipratropium (Duoneb 3 Mg/0.5 Mg (3 Ml) Ud) 3 ml INH RQ6 [facility] Last Admin: 01/29/18 13:47 Dose: 3 ml Alprazolam (Xanax) 0.5 mg PO Q12 [facility] Stop: 02/02/18 10:01 Last Admin: 01/29/18 10:50 Dose: 0.5 mg Diltiazem HCl (Cardizem) 60 mg PO TID [facility] Last Admin: 01/29/18 13:16 Dose: 60 mg Enoxaparin Sodium (Lovenox) 40 mg SC DAILY [facility] Last Admin: 01/29/18 10:50 Dose: 40 mg Fentanyl (Fentanyl) 25 mcg IVP Q4H PRN PRN Reason: pain Last Admin: 01/26/18 09:46 Dose: 25 mcg Hydromorphone HCl (Dilaudid) 0.5 mg IVP Q4H PRN PRN Reason: Pain, severe (8-10) Last Admin: 01/29/18 13:16 Dose: 0.5 mg Cefepime HCl (Maxipime Iv 1 Gm Premix) 1 gm in 50 mls @ 100 mls/hr IVPB Q12H [facility] PRN Reason: Protocol Last Admin: 01/29/18 04:22 Dose: 100 mls/hr Metronidazole (Flagyl) 500 mg in 100 mls @ 100 mls/hr IVPB Q8 [facility] PRN Reason: Protocol Last Admin: 01/29/18 13:18 Dose: 100 mls/hr Lactated Ringer's (Lactated Ringer's) 1,000 mls @ 75 mls/hr IV .[id number] [facility] Last Admin: 01/29/18 09:08 Dose: 75 mls/hr Insulin Aspart (Novolog) 0 unit SC ACHS [facility] PRN Reason: Protocol Last Admin: 01/29/18 12:00 Dose: Not Given Montelukast Sodium (Singulair) 10 mg PO HS [facility] Last Admin: 01/28/18 21:50 Dose: 10 mg Ondansetron HCl (Zofran Inj) 4 mg IVP Q4 PRN PRN Reason: Nausea/Vomiting Last Admin: 01/26/18 09:46 Dose: 4 mg Pantoprazole Sodium (Protonix Ec Tab) 40 mg PO DAILY [facility] Last Admin: 01/29/18 10:49 Dose: 40 mg Potassium Chloride (K-Dur 20 Meq Er Tab) 40 meq PO DAILY [facility] Stop: 01/30/18 10:01 Last Admin: 01/29/18 10:52 Dose: 40 meq Fluticasone/Salmeterol (Advair Diskus 250/50) 1 puff INH RBID [facility] Last Admin: 01/29/18 07:41 Dose: 1 puff - Labs Labs: 01/29/18 06:06 01/29/18 06:06 - Constitutional Appears: No Acute Distress - Head Exam Head Exam: ATRAUMATIC, NORMAL INSPECTION, NORMOCEPHALIC - Eye Exam Eye Exam: EOMI, Normal appearance, PERRL Pupil Exam: NORMAL ACCOMODATION, PERRL - ENT Exam ENT Exam: Mucous Membranes Moist, Normal Exam - Neck Exam Neck Exam: Full ROM, Normal Inspection. absent: Lymphadenopathy - Respiratory Exam Respiratory Exam: Clear to Ausculation Bilateral, NORMAL BREATHING PATTERN - Cardiovascular Exam Cardiovascular Exam: REGULAR RHYTHM, +S1, +S2. absent: Murmur - GI/Abdominal Exam GI & Abdominal Exam: Distended, Soft, Tenderness, Normal Bowel Sounds. absent: Firm Additional comments: Stoma in place. [place]. Small liquid output. Well healed scar - Extremities Exam Extremities Exam: Full ROM, Normal Capillary Refill, Normal Inspection. absent : Joint Swelling, Pedal Edema - Back Exam Back Exam: NORMAL INSPECTION - Neurological Exam Neurological Exam: Alert, Awake, CN II-XII Intact, Normal Gait, Oriented x3 - Psychiatric Exam Psychiatric exam: Normal Affect, Normal Mood - Skin Skin Exam: Dry, Intact, Normal Color, Warm Assessment and Plan - Assessment and Plan (Free Text) Assessment: SBO : improving. Denies nausea. stoma has some output -FLD -IVF -Advance diet as tolerated. -Replete electrolyte as needed -Ambulate -MEdical management ALEJANDRA Price
[2018-01-29 16:02] VITALS: BP 109/63; TEMP 98.1; O2SAT 99
--- NOTE | 2018-01-29 16:10 | CP.PCM.PN ---
Subjective - Date & Time of Evaluation Date of Evaluation: 01/29/18 Time of Evaluation: 12:00 - Subjective Subjective: Patient seen today, denies any abdominal pain, N/V/, tolerating diet Objective - Vital Signs/Intake and Output Vital Signs (last 24 hours): Temp Pulse Resp BP Pulse Ox 98.1 F 109 H 20 109/63 99 01/29/18 15:30 01/29/18 15:30 01/29/18 15:30 01/29/18 15:30 01/29/18 15:30 Intake and Output: 01/29/18 01/29/18 06:59 18:59 Output Total 1200 Balance -1200 - Medications Medications: Current Medications Albuterol/Ipratropium (Duoneb 3 Mg/0.5 Mg (3 Ml) Ud) 3 ml INH RQ6 [facility] Last Admin: 01/29/18 13:47 Dose: 3 ml Alprazolam (Xanax) 0.5 mg PO Q12 [facility] Stop: 02/02/18 10:01 Last Admin: 01/29/18 10:50 Dose: 0.5 mg Diltiazem HCl (Cardizem) 60 mg PO TID [facility] Last Admin: 01/29/18 13:16 Dose: 60 mg Enoxaparin Sodium (Lovenox) 40 mg SC DAILY [facility] Last Admin: 01/29/18 10:50 Dose: 40 mg Fentanyl (Fentanyl) 25 mcg IVP Q4H PRN PRN Reason: pain Last Admin: 01/26/18 09:46 Dose: 25 mcg Hydromorphone HCl (Dilaudid) 0.5 mg IVP Q4H PRN PRN Reason: Pain, severe (8-10) Last Admin: 01/29/18 13:16 Dose: 0.5 mg Cefepime HCl (Maxipime Iv 1 Gm Premix) 1 gm in 50 mls @ 100 mls/hr IVPB Q12H [facility] PRN Reason: Protocol Last Admin: 01/29/18 04:22 Dose: 100 mls/hr Metronidazole (Flagyl) 500 mg in 100 mls @ 100 mls/hr IVPB Q8 [facility] PRN Reason: Protocol Last Admin: 01/29/18 13:18 Dose: 100 mls/hr Lactated Ringer's (Lactated Ringer's) 1,000 mls @ 75 mls/hr IV .[id number] [facility] Last Admin: 01/29/18 09:08 Dose: 75 mls/hr Insulin Aspart (Novolog) 0 unit SC ACHS [facility] PRN Reason: Protocol Last Admin: 01/29/18 12:00 Dose: Not Given Montelukast Sodium (Singulair) 10 mg PO HS [facility] Last Admin: 01/28/18 21:50 Dose: 10 mg Ondansetron HCl (Zofran Inj) 4 mg IVP Q4 PRN PRN Reason: Nausea/Vomiting Last Admin: 01/26/18 09:46 Dose: 4 mg Pantoprazole Sodium (Protonix Ec Tab) 40 mg PO DAILY [facility] Last Admin: 01/29/18 10:49 Dose: 40 mg Potassium Chloride (K-Dur 20 Meq Er Tab) 40 meq PO DAILY [facility] Stop: 01/30/18 10:01 Last Admin: 01/29/18 10:52 Dose: 40 meq Fluticasone/Salmeterol (Advair Diskus 250/50) 1 puff INH RBID [facility] Last Admin: 01/29/18 07:41 Dose: 1 puff - Labs Labs: 01/29/18 06:06 01/29/18 06:06 Assessment and Plan - Assessment and Plan (Free Text) Assessment: 67 yr old male with male admitted with abdominal pain N/V patient tolerating diet D/W Dr. Mai advance diet , no surgical intervention, continue current management seen by Dr. Garcia , case discussed , patient can return to [facility] today As per patient accepted to [facility] Discharge plan discussed with patient and at bedside, who understands and and agrees with plan
[2018-01-29 19:17] VITALS: PULSE 112
--- NOTE | 2018-01-29 23:36 | PN ---
DATE: 01/29/2018 SUBJECTIVE: The patient's abdominal pain has improved, but he has poor appetite. No reported atrial or ventricular arrhythmia. The patient denies any retrosternal chest pain. PHYSICAL EXAMINATION: VITAL SIGNS: Blood pressure 109/63, heart rate 109, the most recent one is 124, sinus tachycardia on the monitor, temperature 98.1, respirations 20. HEENT: Pale conjunctivae. CHEST: Clear. HEART: S1 and S2, regular. ABDOMEN: Diminished bowel sounds. EXTREMITIES: No pedal edema. LABORATORY DATA: Hemoglobin and hematocrit 8.7 and 27.1. White count and platelet count within normal limits. Today's potassium 3.4, BUN and creatinine are 3 and 0.5 respectively. ASSESSMENT: 1. Physiological sinus tachycardia. 2. Advanced chronic obstructive lung disease. 3. Status post mechanical small-bowel obstruction. 4. Hypokalemia. 5. Anemia. RECOMMENDATIONS: 1. Continue current Cardizem 60 mg t.i.d. 2. Fentanyl 25 mcg intravenously every 4 hours p.r.n. for pain. 3. Flagyl 500 mg intravenously daily. 4. K-Dur will be increased to 40 mEq orally daily. 5. Continue IV lactated Ringer's at 75 once a day. 6. Subcutaneous Lovenox 40 mg once a day. 7. Maxipime at 1 gm every 12 hours. 8. Xanax 0.5 mg twice a day. 9. Zofran 4 mg subcutaneously every 4 hours p.r.n. PLAN: To transfer the patient to [facility]. May discontinue telemetry. Mukesh Correia MD
--- NOTE | 2018-01-30 07:41 | CP.PCM.DIS ---
Provider - Provider Date of Admission: 01/26/18 05:31 Attending physician: Hal Garcia MD Time Spent in preparation of Discharge (in minutes): 45 Hospital Course - Lab Results Lab Results: Micro Results 01/26/18 04:17 Blood-Venous Blood Culture - Preliminary NO GROWTH AFTER 3 DAYS 01/26/18 04:32 Blood-Venous Blood Culture - Preliminary NO GROWTH AFTER 3 DAYS Most Recent Lab Values WBC 6.0 K/uL (4.8-10.8) 01/29/18 06:06 RBC 4.09 Mil/uL (4.40-5.90) L 01/29/18 06:06 Hgb 8.7 g/dL (12.0-18.0) L 01/29/18 06:06 Hct 27.1 % (35.0-51.0) L 01/29/18 06:06 MCV 66.3 fL (80.0-94.0) L 01/29/18 06:06 MCH 21.2 pg (27.0-31.0) L 01/29/18 06:06 MCHC 32.0 g/dL (33.0-37.0) L 01/29/18 06:06 RDW 17.0 % (11.5-14.5) H 01/29/18 06:06 Plt Count 358 K/uL (130-400) 01/29/18 06:06 MPV 7.2 fL (7.2-11.7) 01/29/18 06:06 Neut % (Auto) 70.6 % (50.0-75.0) 01/29/18 06:06 Lymph % (Auto) 16.1 % (20.0-40.0) L 01/29/18 06:06 [place] % (Auto) 9.8 % (0.0-10.0) 01/29/18 06:06 Eos % (Auto) 2.5 % (0.0-4.0) 01/29/18 06:06 Baso % (Auto) 1.0 % (0.0-2.0) 01/29/18 06:06 Neut # (Auto) 4.2 K/uL (1.8-7.0) 01/29/18 06:06 Lymph # (Auto) 1.0 K/uL (1.0-4.3) 01/29/18 06:06 [place] # (Auto) 0.6 K/uL (0.0-0.8) 01/29/18 06:06 Eos # (Auto) 0.2 K/uL (0.0-0.7) 01/29/18 06:06 Baso # (Auto) 0.1 K/uL (0.0-0.2) 01/29/18 06:06 Neutrophils % (Manual) 81 % (50-75) H 01/27/18 07:23 Band Neutrophils % 1 % (0-2) 01/27/18 07:23 Lymphocytes % (Manual) 9 % (20-40) L 01/27/18 07:23 Monocytes % (Manual) 6 % (0-10) 01/27/18 07:23 Eosinophils % (Manual) 3 % (0-4) 01/27/18 07:23 Toxic Granulation Present 01/27/18 07:23 Platelet Estimate Normal (NORMAL) 01/27/18 07:23 Large Platelets Present 01/27/18 07:23 Giant Platelets Present 01/27/18 07:23 Polychromasia Slight 01/27/18 07:23 Hypochromasia (manual) Slight 01/27/18 07:23 Poikilocytosis (manual Slight 01/27/18 07:23 Basophilic Stippling Slight 01/27/18 07:23 Anisocytosis (manual) Moderate 01/27/18 07:23 Ovalocytes Slight 01/27/18 07:23 Eva Cells Slight 01/27/18 07:23 Sodium 138 mmol/L (132-148) 01/29/18 06:06 Potassium 3.4 mmol/L (3.6-5.2) L 01/29/18 06:06 Chloride 100 mmol/L (98-107) 01/29/18 06:06 Carbon Dioxide 30 mmol/L (22-30) 01/29/18 06:06 Anion Gap 11 (10-20) 01/29/18 06:06 BUN 3 mg/dL (9-20) L 01/29/18 06:06 Creatinine 0.5 mg/dL (0.8-1.5) L 01/29/18 06:06 Est GFR ( Amer) > 60 01/29/18 06:06 Est GFR (Non-Af Amer) > 60 01/29/18 06:06 POC Glucose (mg/dL) 169 mg/dL (65-110) H 01/29/18 16:13 Random Glucose 99 mg/dL (75-110) 01/29/18 06:06 Lactic Acid 0.8 mmol/L (0.7-2.1) 01/26/18 01:24 Calcium 8.7 mg/dl (8.6-10.4) 01/29/18 06:06 Total Bilirubin 0.6 mg/dL (0.2-1.3) 01/28/18 06:18 AST 30 U/L (17-59) 01/28/18 06:18 ALT 43 U/L (21-72) 01/28/18 06:18 Alkaline Phosphatase 90 U/L (38-126) 01/28/18 06:18 NT-Pro-B Natriuret Pep 102 pg/mL (0-900) 01/26/18 03:07 Total Protein 5.8 g/dL (6.3-8.3) L 01/28/18 06:18 Albumin 3.3 g/dL (3.5-5.0) L 01/28/18 06:18 Globulin 2.5 gm/dL (2.2-3.9) 01/28/18 06:18 Albumin/Globulin Ratio 1.3 (1.0-2.1) 01/28/18 06:18 Lipase 60 U/L (23-300) 01/26/18 00:20 Urine Color Yellow (YELLOW) 01/26/18 15:20 Urine Clarity Hazy (Clear) 01/26/18 15:20 Urine pH 6.0 (5.0-8.0) 01/26/18 15:20 Ur Specific [place] 1.019 (1.003-1.030) 01/26/18 15:20 Urine Protein Negative mg/dL (NEGATIVE) 01/26/18 15:20 Urine Glucose (UA) Normal mg/dL (Normal) 01/26/18 15:20 Urine Ketones Negative mg/dL (NEGATIVE) 01/26/18 15:20 Urine Blood Negative (NEGATIVE) 01/26/18 15:20 Urine Nitrate Negative (NEGATIVE) 01/26/18 15:20 Urine Bilirubin Negative (NEGATIVE) 06/16/18 15:20 Urine Urobilinogen Normal mg/dL (0.2-1.0) 01/26/18 15:20 Ur Leukocyte Esterase Trace Eulalio/uL (Negative) 01/26/18 15:20 Urine WBC (Auto) 5 /hpf (0-5) 01/26/18 15:20 Urine RBC (Auto) 3 /hpf (0-3) 01/26/18 15:20 Ur Squamous Epith Cells 1 /hpf (0-5) 01/26/18 15:20 - Hospital Course Hospital Course: 67 yr old male with male admitted with abdominal pain N/V patient tolerating diet D/W Dr. Mai advance diet , no surgical intervention, continue current management patient can return to [facility] today As per [facility] patient accepted to [facility] Discharge plan discussed with patient and at bedside, who understands and and agrees with plan Discharge Exam - Head Exam Head Exam: ATRAUMATIC, NORMAL INSPECTION, NORMOCEPHALIC Discharge Plan - Discharge Medications Prescriptions: metroNIDAZOLE IV 500 mg/100 ml [Flagyl IV] 500 mg IV Q8 #9 bag Cefepime [Maxipime] 1 gm IV Q12 #9 vial Ondansetron HCl [Zofran] 4 mg PO Q6 PRN #1 tablet PRN Reason: Nausea/Vomiting - Follow Up Plan Condition: GUARDED Disposition: REHAB FACILITY/REHAB UNIT Instructions: Heart Healthy Diet, COPD Including Emphysema (DC), Heart Failure , Adult (DC), Small Bowel Obstruction (DC) Referrals: Hal Garcia MD [Staff Provider] -
== END 2018-01-29 19:50 | DRG 389 ==
LOC: C.ER 22:58 → C.6T 01-26 05:31
PROVIDERS: ADMIT Internal Medicine; ATTEND Internal Medicine
DX: K56.699 Other intestinal obstruction unspecified as to partial versus complete obstruction (principal); E87.1 Hypo-osmolality and hyponatremia; I13.0 Hypertensive heart and chronic kidney disease with heart failure and stage 1 through stage 4 chronic kidney disease, or unspecified chronic kidney disease; Z99.11 Dependence on respirator [ventilator] status; J44.9 Chronic obstructive pulmonary disease, unspecified; I48.0 Paroxysmal atrial fibrillation; D64.9 Anemia, unspecified; E09.65 Drug or chemical induced diabetes mellitus with hyperglycemia; E78.00 Pure hypercholesterolemia, unspecified; E87.6 Hypokalemia; F32.9 Major depressive disorder, single episode, unspecified; D63.1 Anemia in chronic kidney disease; I25.10 Atherosclerotic heart disease of native coronary artery without angina pectoris; I50.9 Heart failure, unspecified; N18.9 Chronic kidney disease, unspecified; Z85.048 Personal history of other malignant neoplasm of rectum, rectosigmoid junction, and anus; Z87.891 Personal history of nicotine dependence; Z79.4 Long term (current) use of insulin; Z87.01 Personal history of pneumonia (recurrent); Z87.442 Personal history of urinary calculi; Z93.3 Colostomy status; T38.0X5S Adverse effect of glucocorticoids and synthetic analogues, sequela

== ENCOUNTER 2018-02-07 21:57 | Inpatient (IN) | payer MEDICARE, BC ==
[2018-02-07 21:57] VITALS: BMI 24.2
[2018-02-07] MEDS ORDERED: Morphine 4 MG/ML VIAL IV STA (22:32)
[2018-02-07] MEDS ORDERED: Sodium Chloride 0.9% 1,000 ML ONE (22:43)
[2018-02-07] MEDS ORDERED: Morphine 4 MG/ML VIAL ONE (22:43)
[2018-02-07] MEDS: Sodium Chloride 0.9% 1,000 ML IV SCH (22:53)
[2018-02-07 23:07] LABS: ALB/GLOB RATIO 1.5 (1.0-2.1); ALT/SGPT 35 U/L (21-72); AST/SGOT 23 U/L (17-59); BLOOD UREA NITROGEN 7 mg/dL (9-20); CALCIUM 9.5 mg/dl (8.6-10.4); GFR AFRICAN-AMERICAN > 60; GFR NON-AFRICAN AMERICAN > 60; LIPASE 29 U/L (23-300)
[2018-02-07 23:08] LABS: BASO # 0.2 K/uL (0.0-0.2); BASO % 0.8 % (0.0-2.0); EOS # 0.2 K/uL (0.0-0.7); EOS % 0.7 % (0.0-4.0); HEMOGLOBIN 9.9 g/dL (12.0-18.0); LYMPH # 0.8 K/uL (1.0-4.3); LYMPH % 3.5 % (20.0-40.0); MEAN CELL VOLUME 66.8 fL (80.0-94.0); MEAN CORPUSCULAR HEMOGLOBIN 20.8 pg (27.0-31.0); MEAN CORPUSCULAR HGB CONC 31.2 g/dL (33.0-37.0); MEAN PLATELET VOLUME 7.8 fL (7.2-11.7); MONO # 1.1 K/uL (0.0-0.8); NEUT # 19.6 K/uL (1.8-7.0); PLATELET COUNT 388 K/uL (130-400); RBC 4.77 Mil/uL (4.40-5.90); RED CELL DISTRIBUTION WIDTH 18.3 % (11.5-14.5)
[2018-02-07 23:09] LABS: WHITE BLOOD COUNT 21.8 K/uL (4.8-10.8)
[2018-02-07] MEDS ORDERED: metroNIDAZOLE IV 500 mg/100 ml 500 MG/100 ML BAG IVPB STA (23:22)
[2018-02-07] MEDS ORDERED: Sodium Chloride 0.9% 1,000 ML IV ONE (23:23)
[2018-02-08] MEDS ORDERED: metroNIDAZOLE IV 500 mg/100 ml 500 MG/100 ML BAG ONE (00:03)
[2018-02-08 00:04] LABS: EOSINOPHIL 1 % (0-4); LYMPHOCYTE 3 % (20-40); MONOCYTE 5 % (0-10); NEUTROPHIL 91 % (50-75); PLATELET ESTIMATE NORMAL (NORMAL); TOTAL CELLS COUNTED 100
[2018-02-08 00:06] LABS: ANISOCYTOSIS MODERATE; POIKILOCYTOSIS MODERATE
[2018-02-08 00:07] LABS: HYPOCHROMIC MODERATE; OVALOCYTES MODERATE; SCHISTOCYTES MODERATE
[2018-02-08 00:16] LABS: GIANT PLATELETS PRESENT; TOXIC GRANULATION PRESENT
[2018-02-08 00:17] LABS: TEARDROP CELLS SLIGHT
--- NOTE | 2018-02-08 00:21 | C.PDOC ---
History Of Present Illness 67 y/o male sent to the ED by another hospital after CT scan today showed small bowel obstruction. Patient is complaining of diffuse abdominal pain with distension. Also reports decreased output from his ileostomy. NG tube in place on arrival. No documented fever. Patient had SBO surgery approximately 2 weeks ago. Time Seen by Provider: 02/07/18 22:25 Chief Complaint (Nursing): Abdominal Pain History Per: Patient History/Exam Limitations: no limitations Onset/Duration Of Symptoms: Hrs Current Symptoms Are (Timing): Still Present Additional History Per: Prior Records Past Medical History Reviewed: Historical Data, Nursing Documentation, Vital Signs Vital Signs: Last Vital Signs Temp 98.2 F 02/08/18 07:00 Pulse 121 H 02/08/18 10:04 Resp 20 02/08/18 07:00 BP 151/85 H 02/08/18 07:00 Pulse Ox 100 02/08/18 07:00 - Medical History PMH: Anemia, Anxiety, Arthritis (BACK), Asthma, Bronchitis, Cardia Arrhythmia ( SVT), CHF, COPD (Emphysema), Diabetes, Emphysema, HTN, Hypercholesterolemia, Kidney Stones, Pneumonia, Chronic Kidney Disease, Sleep Apnea (ON DALIRESP) Denies: Fractures, Gastritis Surgical History: Endoscopy Other Surgeries: SBO surgery - [facility] Procedures ASSISTANCE WITH RESPIRATORY VENTILATION, 24-96 HRS, CPAP (08/23/17) ASSISTANCE WITH RESPIRATORY VENTILATION, <24 HRS, CPAP (11/14/17) ASSISTANCE WITH RESPIRATORY VENTILATION, >96 HRS, CPAP (12/04/17) CONTINUOUS INVASIVE MECHANICAL VENTILATION <96 CONSEC HRS (11/29/14) DILATION OF RIGHT URETER WITH INTRALUMINAL DEVICE, ENDO (03/20/17) DRAINAGE OF BLADDER WITH DRAINAGE DEVICE, VIA OPENING (12/04/17) DRAINAGE OF RECTUM, PERCUTANEOUS APPROACH (12/04/17) EXCISION OF ILEUM, OPEN APPROACH (12/04/17) EXCISION OF SIGMOID COLON, ENDO, DIAGN (03/20/17) EXCISION OF STOMACH, ENDO, DIAGN (03/20/17) EXCISION OF TRANSVERSE COLON, ENDO, DIAGN (03/20/17) INFLUENZA VACCINATION (06/02/14) INSERT ENDOTRACHEAL TUBE (11/29/14) INSERTION OF INFUSION DEV INTO SUP VENA CAVA, PERC APPROACH (01/26/18) LARYGNOSCOPY AND OTH TRACHEOSCOPY (04/18/15) MEASURE OF CARDIAC SAMPL & PRESSURE, L HEART, PERC APPROACH (12/01/15) NON-INVASIVE MECHANICAL VENTILATION (04/18/15) RESECTION OF SIGMOID COLON, OPEN APPROACH (03/20/17) RESPIRATORY VENTILATION, GREATER THAN 96 CONSECUTIVE HOURS (03/20/17) Family History: States: Unknown Family Hx - Social History Hx Tobacco Use: Yes (8 years ppd smoker. quit 1.5 years ago) Hx Alcohol Use: Yes Hx Substance Use: No - Immunization History Hx Tetanus Toxoid Vaccination: Yes Hx Influenza Vaccination: Yes Hx Pneumococcal Vaccination: Yes (12/01/2014) Review Of Systems Except As Marked, All Systems Reviewed And Found Negative. Constitutional: Negative for: Fever, Chills Gastrointestinal: Positive for: Abdominal Pain, Other (decreased output from ileostomy) Physical Exam - Physical Exam Appears: In Acute Distress (appears in mild discomfort) Skin: Normal Color, Warm, Dry Head: Atraumatic, Normacephalic Eye(s): bilateral: Normal Inspection, PERRL, EOMI Nose: Other (NG tube in place) Oral Mucosa: Moist Neck: Normal ROM, Supple Chest: Symmetrical Cardiovascular: Rhythm Regular, No Murmur Respiratory: Normal Breath Sounds, No Rales, No Rhonchi, No Wheezing Gastrointestinal/Abdominal: No Bowel Sounds (minimal to no bowel sounds), Tenderness (diffuse abdominal tenderness), Distention, No Guarding, No Rebound, Other (ileostomy in place to RLQ with minimal output) Back: Normal Inspection Extremity: Bilateral: Atraumatic, Normal Color And Temperature, Normal ROM Pulses: Left Dorsalis Pedis: Normal, Right Dorsalis Pedis: Normal Neurological/Psych: Oriented x3, Normal Speech, Normal Cranial Nerves ED Course And Treatment - Laboratory Results Result Diagrams: 02/07/18 22:47 02/07/18 22:47 O2 Sat by Pulse Oximetry: 100 (RA) Pulse Ox Interpretation: Normal Medical Decision Making Medical Decision Making: Impression: 67 y/o M with SBO Plan: --CMP --CBC --Lipase --Blood culture --Chest x-ray --Morphine 4 mg IV --IV fluids --Zofran 4 mg IV Progress/Updates: 22:45 Paged surgery and discussed case Also spoke with Dr. Garcia, patient accepted for admission to telemetry. Patient started on IV Zosyn and Flagyl in the ED. Disposition Counseled Patient/Family Regarding: Studies Performed, Diagnosis - Disposition Disposition: HOSPITALIZED Disposition Time: 23:25 Condition: GUARDED - Clinical Impression Clinical Impression: Small bowel obstruction - Scribe Statement The provider has reviewed the documentation as recorded by the Scribe (Kailee Thompson) Provider Attestation: All medical record entries made by the Scribe were at my direction and personally dictated by me. I have reviewed the chart and agree that the record accurately reflects my personal performance of the history, physical exam, medical decision making, and the department course for this patient. I have also personally directed, reviewed, and agree with the discharge instructions and disposition.
[2018-02-08] MEDS ORDERED: Morphine 4 MG/ML VIAL IV ONE (01:45)
[2018-02-08] MEDS ORDERED: Albuterol-Ipratrop 3 mg / 0.5 (3 ml) UD INH STA (01:45)
[2018-02-08] MEDS: Piperacill/Tazo 4.5gm in Dex 4.5 GM/100 ML BAG IVPB SCH ×4 (02:17→17:05)
[2018-02-08] MEDS: Sodium Chloride 0.9% 1,000 ML IV SCH ×3 (02:21→13:55)
--- NOTE | 2018-02-08 05:54 | CP.PCM.CON ---
History of Present Illness - History of Present Illness History of Present Illness: SURGERY CONSULT NOTE FOR DR. MANZANO 67M presents with abdominal pain. Patient states pain started yesterday and this prompted a visit to outpatient imaging. Imaging at this facility showed severe SBO with transition point at the ostomy site prompting patient to come to ED. Patient states pain is in midline abdomen. Patient admits to nauseous and vomiting, denies fevers or chills. He denies flatus and bowel movement. PMH: COPD, CHF, steroid induced DM, colon cancer, illeostomy creation, EC fistula PSH: Colon resection ileostomy creation, ileostomy reversal Allergies: Acetaminophen, FISH, Shrimp, IV dye Past Patient History - Infectious Disease Hx of Infectious Diseases: None - Past Medical History & Family History Past Medical History?: Yes - Past Social History Smoking Status: Former Smoker - CARDIAC Hx Cardiac Disorders: Yes Hx Cardia Arrhythmia: Yes (SVT) Hx Congestive Heart Failure: Yes Hx Hypercholesterolemia: Yes Hx Hypertension: Yes - PULMONARY Hx Respiratory Disorders: Yes Hx Asthma: Yes Hx Bronchitis: Yes Hx Chronic Obstructive Pulmonary Disease (COPD): Yes (Emphysema) Hx Emphysema: Yes Hx Pneumonia: Yes Hx Sleep Apnea: Yes (ON DALIRESP) - NEUROLOGICAL Hx Neurological Disorder: No HX Cerebrovascular Accident: No - HEENT Hx HEENT Problems: Yes Hx Cataracts: Yes (left cataract removed, r cataract) Hx Deafness: No Hx Difficulty Chewing: No Hx Epistaxis: No Hx Glaucoma: No Hx Macular Degeneration: No Other/Comment: wears eyeglasses for distance - RENAL Hx Chronic Kidney Disease: Yes Hx Kidney Stones: Yes - ENDOCRINE/METABOLIC Hx Endocrine Disorders: Yes 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 - MUSCULOSKELETAL/RHEUMATOLOGICAL Hx Musculoskeletal Disorders: No Hx Falls: No - GASTROINTESTINAL Hx Gastrointestinal Disorders: Yes Hx Gastritis: No Hx Ileostomy: Yes Hx Vomiting: Yes - GENITOURINARY/GYNECOLOGICAL Hx Genitourinary Disorders: No - PSYCHIATRIC Hx Anxiety: Yes Hx Substance Use: No - SURGICAL HISTORY Hx Surgeries: Yes Hx Cataract Extraction: Yes (left eye, right eye) Hx Cardiac Catheterization: Yes (11/2015) Hx Eye Surgery: Yes Hx Pulmonary Surgery: Yes Other/Comment: colon resection with right ileostomy - ANESTHESIA Hx Anesthesia: Yes Hx Anesthesia Reactions: No Hx Malignant Hyperthermia: No Meds Allergies/Adverse Reactions: Allergies Allergy/AdvReac Type Severity Reaction Status Date / Time acetaminophen [From Tylenol] Allergy RASH Verified 02/07/18 22:11 FISH Allergy SWELLING Verified 02/07/18 22:11 shrimp Allergy SHORTNESS Verified 02/07/18 22:11 OF BREATH IV dye Allergy Severe ANAPHYLAXIS Uncoded 02/07/18 22:11 - Medications Medications: Current Medications Sodium Chloride (Sodium Chloride 0.9%) 1,000 mls @ 125 mls/hr IV .Q8H [facility] Last Admin: 02/08/18 02:21 Dose: 125 mls/hr Piperacillin Sod/Tazobactam Sod (Zosyn 4.5 Gm Iv Premix) 4.5 gm in 100 mls @ 200 mls/hr IVPB Q6H [facility] PRN Reason: Protocol Last Admin: 02/08/18 02:17 Dose: 200 mls/hr Physical Exam - Constitutional Appears: Non-toxic, No Acute Distress Additional comments: currently on bipap - Eye Exam Eye Exam: EOMI, PERRL - ENT Exam ENT Exam: Mucous Membranes Moist - Respiratory Exam Respiratory Exam: Clear to Auscultation Bilateral, NORMAL BREATHING PATTERN - Cardiovascular Exam Cardiovascular Exam: REGULAR RHYTHM, +S1, +S2 - GI/Abdominal Exam GI & Abdominal Exam: Distended, Soft, Tenderness (mild/moderate midline tenderness). absent: Guarding, Rebound, Rigid Additional comments: Ostomy bag has some stool output NGT -450cc in 7hours since insertion - Extremities Exam Extremities exam: Negative for: pedal edema, tenderness - Neurological Exam Neurological exam: Alert, Oriented x3 - Psychiatric Exam Psychiatric exam: Normal Affect, Normal Mood - Skin Skin Exam: Dry, Intact, Normal Color, Warm Results - Vital Signs Recent Vital Signs: Last Vital Signs Temp 97.6 F 02/08/18 04:00 Pulse 128 H 02/08/18 05:50 Resp 22 02/08/18 04:00 BP 150/90 02/08/18 04:00 Pulse Ox 100 02/08/18 04:00 - Labs Result Diagrams: 02/07/18 22:47 02/07/18 22:47 Labs: Laboratory Results - last 24 hr 02/07/18 02/07/18 22:47 22:47 WBC 21.8 H D RBC 4.77 Hgb 9.9 L Hct 31.9 L MCV 66.8 L MCH 20.8 L MCHC 31.2 L RDW 18.3 H Plt Count 388 MPV 7.8 Neut % (Auto) 90.0 H Lymph % (Auto) 3.5 L [place] % (Auto) 5.0 Eos % (Auto) 0.7 Baso % (Auto) 0.8 Neut # (Auto) 19.6 H Lymph # (Auto) 0.8 L [place] # (Auto) 1.1 H Eos # (Auto) 0.2 Baso # (Auto) 0.2 Neutrophils % (Manual) 91 H Lymphocytes % (Manual) 3 L Monocytes % (Manual) 5 Eosinophils % (Manual) 1 Toxic Granulation Present Platelet Estimate Normal Giant Platelets Present Hypochromasia (manual) Moderate Poikilocytosis (manual Moderate Anisocytosis (manual) Moderate Macrocytosis (manual) Moderate Tear Drop Cells Slight Ovalocytes Moderate Schistocytes Moderate Sodium 137 Potassium 3.8 Chloride 95 L Carbon Dioxide 33 H Anion Gap 13 BUN 7 L Creatinine 0.5 L Est GFR ( Amer) > 60 Est GFR (Non-Af Amer) > 60 Random Glucose 218 H Calcium 9.5 Total Bilirubin 0.8 AST 23 ALT 35 Alkaline Phosphatase 104 Total Protein 6.8 Albumin 4.0 Globulin 2.8 Albumin/Globulin Ratio 1.5 Lipase 29 Assessment & Plan - Assessment and Plan (Free Text) Assessment: 67M presents with high grade bowel obstruction transition point at site of stoma /fistula Plan: NPO, IVF Pain control Nausea control Monitor NGT output Serial abdominal exam monitor fistula output Await flatus/bowel function Further recs discuss with Dr. Emilia Harding, PGY2
--- NOTE | 2018-02-08 08:54 | RAD ---
PROCEDURE: CHEST RADIOGRAPH, 1 VIEW HISTORY: abd pain (NGT placement) COMPARISON: 01/26/2018 FINDINGS: LUNGS: Clear. PLEURA: No pneumothorax or pleural fluid seen. CARDIOVASCULAR: Normal heart size. Nasogastric tube. Left PICC catheter. OSSEOUS STRUCTURES: No significant abnormalities. VISUALIZED UPPER ABDOMEN: Normal. OTHER FINDINGS: None. IMPRESSION: No active disease.
[2018-02-08] MEDS: HYDROmorphone 1 mg/ml ISec IVP PRN ×4 (09:23→22:47)
[2018-02-08] MEDS: Albuterol-Ipratrop 3 mg / 0.5 (3 ml) UD INH SCH (20:42)
--- NOTE | 2018-02-08 23:12 | CP.PCM.HP ---
History of Present Illness - History of Present Illness History of Present Illness: 67M presents with abdominal pain. Patient states pain started yesterday and this prompted a visit to outpatient imaging. Imaging at this facility showed severe SBO with transition point at the ostomy site prompting patient to come to ED. Patient states pain is in midline abdomen. Patient admits to nauseous and vomiting, denies fevers or chills. He denies flatus and bowel movement. PMH: COPD, CHF, steroid induced DM, colon cancer, illeostomy creation, EC fistula PSH: Colon resection ileostomy creation, ileostomy reversal Allergies: Acetaminophen, FISH, Shrimp, IV dye Past Patient History - Infectious Disease Hx of Infectious Diseases: None - Past Medical History & Family History Past Medical History?: Yes - Past Social History Smoking Status: Former Smoker - CARDIAC Hx Cardia Arrhythmia: Yes (SVT) Hx Congestive Heart Failure: Yes Hx Hypercholesterolemia: Yes Hx Hypertension: Yes - PULMONARY Hx Asthma: Yes Hx Bronchitis: Yes Hx Chronic Obstructive Pulmonary Disease (COPD): Yes (Emphysema) Hx Emphysema: Yes Hx Pneumonia: Yes Hx Sleep Apnea: Yes (ON DALIRESP) - NEUROLOGICAL Hx Neurological Disorder: No HX Cerebrovascular Accident: No - HEENT Hx HEENT Problems: Yes Hx Cataracts: Yes (left cataract removed, r cataract) Hx Deafness: No Hx Difficulty Chewing: No Hx Epistaxis: No Hx Glaucoma: No Hx Macular Degeneration: No Other/Comment: wears eyeglasses for distance - RENAL Hx Chronic Kidney Disease: Yes Hx Kidney Stones: Yes - ENDOCRINE/METABOLIC Hx Endocrine Disorders: Yes 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 - MUSCULOSKELETAL/RHEUMATOLOGICAL Hx Arthritis: Yes (BACK) Hx Fractures: No - GASTROINTESTINAL Hx Gastritis: No - PSYCHIATRIC Hx Anxiety: Yes Hx Substance Use: No - SURGICAL HISTORY Hx Surgeries: Yes Hx Cataract Extraction: Yes (left eye, right eye) Hx Cardiac Catheterization: Yes (11/2015) Hx Eye Surgery: Yes Hx Pulmonary Surgery: Yes Other/Comment: colon resection with right ileostomy - ANESTHESIA Hx Anesthesia: Yes Hx Anesthesia Reactions: No Hx Malignant Hyperthermia: No Meds Allergies/Adverse Reactions: Allergies Allergy/AdvReac Type Severity Reaction Status Date / Time acetaminophen [From Tylenol] Allergy RASH Verified 02/07/18 22:11 FISH Allergy SWELLING Verified 02/07/18 22:11 shrimp Allergy SHORTNESS Verified 02/07/18 22:11 OF BREATH IV dye Allergy Severe ANAPHYLAXIS Uncoded 02/07/18 22:11 Results - Vital Signs Recent Vital Signs: Last Vital Signs Temp 98.4 F 02/08/18 16:52 Pulse 115 H 02/08/18 16:52 Resp 20 02/08/18 16:52 BP 118/78 02/08/18 16:52 Pulse Ox 98 02/08/18 16:52 - Labs Result Diagrams: 02/07/18 22:47 02/07/18 22:47 Labs: Laboratory Results - last 24 hr 02/07/18 02/08/18 02/08/18 22:47 06:19 11:04 Neutrophils % (Manual) 91 H Lymphocytes % (Manual) 3 L Monocytes % (Manual) 5 Eosinophils % (Manual) 1 Toxic Granulation Present Platelet Estimate Normal Giant Platelets Present Hypochromasia (manual) Moderate Poikilocytosis (manual Moderate Anisocytosis (manual) Moderate Macrocytosis (manual) Moderate Tear Drop Cells Slight Ovalocytes Moderate Schistocytes Moderate POC Glucose (mg/dL) 181 H 173 H 02/08/18 02/08/18 16:37 21:20 Neutrophils % (Manual) Lymphocytes % (Manual) Monocytes % (Manual) Eosinophils % (Manual) Toxic Granulation Platelet Estimate Giant Platelets Hypochromasia (manual) Poikilocytosis (manual Anisocytosis (manual) Macrocytosis (manual) Tear Drop Cells Ovalocytes Schistocytes POC Glucose (mg/dL) 160 H 116 H
[2018-02-09] MEDS: Piperacill/Tazo 4.5gm in Dex 4.5 GM/100 ML BAG IVPB SCH ×5 (00:01→23:47)
[2018-02-09] MEDS: Albuterol-Ipratrop 3 mg / 0.5 (3 ml) UD INH SCH ×5 (01:01→23:42)
[2018-02-09] MEDS: HYDROmorphone 1 mg/ml ISec IVP PRN ×4 (06:34→23:44)
[2018-02-09 06:46] LABS: HEMOGLOBIN 9.3 g/dL (12.0-18.0); MEAN CELL VOLUME 66.4 fL (80.0-94.0); MEAN CORPUSCULAR HGB CONC 31.6 g/dL (33.0-37.0); MEAN PLATELET VOLUME 8.4 fL (7.2-11.7); RBC 4.45 Mil/uL (4.40-5.90); RED CELL DISTRIBUTION WIDTH 18.5 % (11.5-14.5); WHITE BLOOD COUNT 11.4 K/uL (4.8-10.8)
[2018-02-09 07:46] LABS: BLOOD UREA NITROGEN 5 mg/dL (9-20); CALCIUM 8.8 mg/dl (8.6-10.4); GFR AFRICAN-AMERICAN > 60; GFR NON-AFRICAN AMERICAN > 60
--- NOTE | 2018-02-09 08:42 | CP.PCM.CON ---
History of Present Illness - History of Present Illness History of Present Illness: Asked by Dr. Garcia for a GI consultation on this patient. 67 year old male with history of end stage COPD, colon cancer s/p resection and ileostomy, giovanna- rectal abscess who is admitted to hospital with complaint of sudden onset abdominal pain which began 2 days ago. He describes sharp epigastric pain which was associated with one episode of vomiting. He had recent hospitalization with similar complaints and was treated conservatively for small bowel obstruction. He is currently seen resting in bed comfortably, on BIPAP, abdominal pain has resolved. He has an NGT in place with minimal output , there is liquid brown stool present in ostomy bag. He had a colonoscopy in October 2017 which showed friable surgical anastomosis with limited visualization due to fecal retention. Social history: former smoker, no ETOH use Family history: Reviewed, patient denies history of GI malignancies Review of Systems - Review of Systems Review of Systems: - All other comprehensive 12 point review of systems performed, negative - Cardiovascular Cardiovascular: absent: Acrocyanosis, Chest Pain, Chest Pain at Rest, Chest Pain with Activity, Claudication, Diaphoresis, Dyspnea, Dyspnea on Exertion, Edema, Irregular Heart Rhythm, Pain Radiating to Arm/Neck/Jaw, Leg Edema, Leg Ulcers, Lightheadedness, Orthopnea, Palpitations, Paroxysmal Nocturnal Dyspnea, Pedal Edema, Radiating Pain, Rapid Heart Rate, Slow Heart Rate, Syncope, Other - Respiratory Respiratory: absent: Cough, Dyspnea, Hemoptysis, Dyspnea on Exertion, Wheezing, Snoring, Stridor, Pain on Inspiration, Chest Congestion, Excessive Mucous Production, Change in Mucous Color, Pain with Coughing, Other - Gastrointestinal Gastrointestinal: Abdominal Pain - Musculoskeletal Musculoskeletal: absent: Abnormal Gait, Arthralgias, Atrophy, Back Pain, Deformity, Joint Swelling, Limited Range of Motion, Loss of Height, Muscle Cramps, Muscle Weakness, Myalgias, Neck Pain, Numbness, Radiating Pain into Limb , Stiffness, Tingling, Other - Neurological Neurological: absent: Abnormal Gait, Abnormal Hearing, Abnormal Movements, Abnormal Speech, Behavioral Changes, Burning Sensations, Confusion, Convulsions , Disequilibrium, Dizziness, Numbness, Focal Weakness, Frequent Falls, Headaches , Lack of Coordination, Loss of Vision, Memory Loss, Paresthesias, Radicular Pain, Restless Legs, Sensory Deficit, Syncope, Tingling, Tremor, Vertigo, Weakness, Other Visual Disturbances, Other Past Patient History - Infectious Disease Hx of Infectious Diseases: None - Past Medical History & Family History Past Medical History?: Yes - Past Social History Smoking Status: Former Smoker - CARDIAC Hx Cardia Arrhythmia: Yes (SVT) Hx Congestive Heart Failure: Yes Hx Hypercholesterolemia: Yes Hx Hypertension: Yes - PULMONARY Hx Asthma: Yes Hx Bronchitis: Yes Hx Chronic Obstructive Pulmonary Disease (COPD): Yes (Emphysema) Hx Emphysema: Yes Hx Pneumonia: Yes Hx Sleep Apnea: Yes (ON DALIRESP) - NEUROLOGICAL Hx Neurological Disorder: No HX Cerebrovascular Accident: No - HEENT Hx HEENT Problems: Yes Hx Cataracts: Yes (left cataract removed, r cataract) Hx Deafness: No Hx Difficulty Chewing: No Hx Epistaxis: No Hx Glaucoma: No Hx Macular Degeneration: No Other/Comment: wears eyeglasses for distance - RENAL Hx Chronic Kidney Disease: Yes Hx Kidney Stones: Yes - ENDOCRINE/METABOLIC Hx Endocrine Disorders: Yes 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 - MUSCULOSKELETAL/RHEUMATOLOGICAL Hx Arthritis: Yes (BACK) Hx Fractures: No - GASTROINTESTINAL Hx Gastritis: No - PSYCHIATRIC Hx Anxiety: Yes Hx Substance Use: No - SURGICAL HISTORY Hx Surgeries: Yes Hx Cataract Extraction: Yes (left eye, right eye) Hx Cardiac Catheterization: Yes (11/2015) Hx Eye Surgery: Yes Hx Pulmonary Surgery: Yes Other/Comment: colon resection with right ileostomy - ANESTHESIA Hx Anesthesia: Yes Hx Anesthesia Reactions: No Hx Malignant Hyperthermia: No Meds Allergies/Adverse Reactions: Allergies Allergy/AdvReac Type Severity Reaction Status Date / Time acetaminophen [From Tylenol] Allergy RASH Verified 02/07/18 22:11 FISH Allergy SWELLING Verified 02/07/18 22:11 shrimp Allergy SHORTNESS Verified 02/07/18 22:11 OF BREATH IV dye Allergy Severe ANAPHYLAXIS Uncoded 02/07/18 22:11 - Medications Medications: Current Medications Albuterol/Ipratropium (Duoneb 3 Mg/0.5 Mg (3 Ml) Ud) 3 ml INH RQ6 [facility] Last Admin: 02/09/18 07:32 Dose: 3 ml Alprazolam (Xanax) 0.25 mg PO TID [facility] Stop: 02/16/18 10:01 Enoxaparin Sodium (Lovenox) 40 mg SC DAILY [facility] Hydromorphone HCl (Dilaudid) 1 mg IVP Q4H PRN PRN Reason: Pain, severe (8-10) Last Admin: 02/09/18 06:34 Dose: 1 mg Sodium Chloride (Sodium Chloride 0.9%) 1,000 mls @ 125 mls/hr IV .Q8H [facility] Last Admin: 02/08/18 13:55 Dose: 125 mls/hr Piperacillin Sod/Tazobactam Sod (Zosyn 4.5 Gm Iv Premix) 4.5 gm in 100 mls @ 200 mls/hr IVPB Q6H [facility] PRN Reason: Protocol Last Admin: 02/09/18 05:21 Dose: 200 mls/hr Potassium Chloride (Potassium Chloride 20 Meq/100 Ml) 20 meq in 100 mls @ 50 mls/hr IVPB ONCE ONE Stop: 02/09/18 10:26 Potassium Chloride (Potassium Chloride 20 Meq/100 Ml) 20 meq in 100 mls @ 50 mls/hr IVPB ONCE ONE Stop: 02/09/18 12:29 Ondansetron HCl (Zofran Inj) 4 mg IVP Q6 PRN PRN Reason: Nausea/Vomiting Last Admin: 02/08/18 13:50 Dose: 4 mg Pantoprazole Sodium (Protonix Inj) 40 mg IVP DAILY [facility] Roflumilast (Daliresp) 500 mcg PO DAILY [facility] Physical Exam - Constitutional Appears: Non-toxic, No Acute Distress - Head Exam Head Exam: NORMAL INSPECTION - Eye Exam Eye Exam: EOMI, Normal appearance - ENT Exam ENT Exam: Mucous Membranes Dry Additional comments: NGT present, minimal bilious output - Respiratory Exam Respiratory Exam: Wheezes Additional comments: bilateral lung gonzalez - Cardiovascular Exam Cardiovascular Exam: +S1, +S2 - GI/Abdominal Exam GI & Abdominal Exam: Hypoactive Bowel Sounds, Soft, Tenderness Additional comments: mild epigastric tenderness to palpation midline surgical scar present no palpable hepato/splenomegaly RLQ ostomy present with liquid brown stool in bag - Extremities Exam Extremities exam: Positive for: normal inspection - Neurological Exam Neurological exam: Alert, CN II-XII Intact, Oriented x3, Reflexes Normal - Psychiatric Exam Psychiatric exam: Normal Affect, Normal Mood - Skin Skin Exam: Dry, Intact, Normal Color, Warm Results - Vital Signs Recent Vital Signs: Last Vital Signs Temp 97.5 F L 02/09/18 07:20 Pulse 112 H 02/09/18 08:00 Resp 20 02/09/18 07:20 BP 153/93 H 02/09/18 07:20 Pulse Ox 100 02/09/18 07:20 - Labs Result Diagrams: 02/09/18 06:36 02/09/18 06:36 Labs: Laboratory Results - last 24 hr 02/08/18 02/08/18 02/08/18 11:04 16:37 21:20 WBC RBC Hgb Hct MCV MCH MCHC RDW Plt Count MPV Sodium Potassium Chloride Carbon Dioxide Anion Gap BUN Creatinine Est GFR ( Amer) Est GFR (Non-Af Amer) POC Glucose (mg/dL) 173 H 160 H 116 H Random Glucose Calcium 02/09/18 02/09/18 02/09/18 06:14 06:36 06:36 WBC 11.4 H RBC 4.45 Hgb 9.3 L Hct 29.6 L MCV 66.4 L MCH 21.0 L MCHC 31.6 L RDW 18.5 H Plt Count 348 MPV 8.4 Sodium 140 Potassium 2.9 L Chloride 98 Carbon Dioxide 35 H Anion Gap 10 BUN 5 L Creatinine 0.5 L Est GFR ( Amer) > 60 Est GFR (Non-Af Amer) > 60 POC Glucose (mg/dL) 97 Random Glucose 88 Calcium 8.8 Assessment & Plan - Assessment and Plan (Free Text) Assessment: COPD History of colon cancer s/p resection and ileostomy History of giovanna-rectal abscess Abdominal pain, SBO - resolving Plan: - NPO - Continue with antibiotic therapy - Obtain abdominal XR - Serial abdominal exams - Monitor NGT output, though patient now with ostomy output can likely remove tube - Recommend surgical consultation for further management - Continue with supportive care, IVF hydration, anti-emetic therapy PRN - No planned GI intervention, will sign off case. Patient would benefit from outpatient follow up and repeat colonoscopy following surgical reversal of ostomy. Please reconsult as necessary, thank you.
--- NOTE | 2018-02-09 08:56 | CP.PCM.PN ---
Subjective - Date & Time of Evaluation Date of Evaluation: 02/09/18 Time of Evaluation: 08:53 - Subjective Subjective: General Surgery Progress Note for Dr. Nieto This 67M was seen and evaluated this AM at bedside. He and his nurse report significant output into multiple ostomy bags. He reports his abdominal pain is improved compared with yesterday. He denies chest pain or new and or concerning symptoms. He denies any nausea or vomiting. Objective - Vital Signs/Intake and Output Vital Signs (last 24 hours): Temp Pulse Resp BP Pulse Ox 97.5 F L 112 H 20 153/93 H 100 02/09/18 07:20 02/09/18 08:00 02/09/18 07:20 02/09/18 07:20 02/09/18 07:20 Intake and Output: 02/09/18 02/09/18 06:59 18:59 Intake Total 1000 Output Total 1400 Balance -400 - Medications Medications: Current Medications Albuterol/Ipratropium (Duoneb 3 Mg/0.5 Mg (3 Ml) Ud) 3 ml INH RQ6 [facility] Last Admin: 02/09/18 07:32 Dose: 3 ml Alprazolam (Xanax) 0.25 mg PO TID [facility] Stop: 02/16/18 10:01 Enoxaparin Sodium (Lovenox) 40 mg SC DAILY [facility] Hydromorphone HCl (Dilaudid) 1 mg IVP Q4H PRN PRN Reason: Pain, severe (8-10) Last Admin: 02/09/18 06:34 Dose: 1 mg Sodium Chloride (Sodium Chloride 0.9%) 1,000 mls @ 125 mls/hr IV .Q8H [facility] Last Admin: 02/08/18 13:55 Dose: 125 mls/hr Piperacillin Sod/Tazobactam Sod (Zosyn 4.5 Gm Iv Premix) 4.5 gm in 100 mls @ 200 mls/hr IVPB Q6H [facility] PRN Reason: Protocol Last Admin: 02/09/18 05:21 Dose: 200 mls/hr Potassium Chloride (Potassium Chloride 20 Meq/100 Ml) 20 meq in 100 mls @ 50 mls/hr IVPB ONCE ONE Stop: 02/09/18 10:59 Potassium Chloride (Potassium Chloride 20 Meq/100 Ml) 20 meq in 100 mls @ 50 mls/hr IVPB ONCE ONE Stop: 02/09/18 13:14 Ondansetron HCl (Zofran Inj) 4 mg IVP Q6 PRN PRN Reason: Nausea/Vomiting Last Admin: 02/08/18 13:50 Dose: 4 mg Pantoprazole Sodium (Protonix Inj) 40 mg IVP DAILY [facility] Roflumilast (Daliresp) 500 mcg PO DAILY [facility] - Labs Labs: 02/09/18 06:36 02/09/18 06:36 - Constitutional Appears: Non-toxic, No Acute Distress - Head Exam Head Exam: ATRAUMATIC, NORMOCEPHALIC - Eye Exam Eye Exam: EOMI, Normal appearance - Respiratory Exam Respiratory Exam: NORMAL BREATHING PATTERN - Cardiovascular Exam Cardiovascular Exam: +S1, +S2 - GI/Abdominal Exam GI & Abdominal Exam: Soft. absent: Guarding, Rigid, Tenderness Additional comments: Ostomy bag with stool present. - Neurological Exam Neurological Exam: Alert, Awake - Psychiatric Exam Psychiatric exam: Normal Affect, Normal Mood - Skin Skin Exam: Dry, Intact Assessment and Plan - Assessment and Plan (Free Text) Assessment: 67M presents with high grade bowel obstruction transition point at site of stoma /fistula Leukocytosis resolving Continue NPO NGT Clamp Trial serial abd exams further recs per Dr. Emilia Woods PGY2
[2018-02-09] MEDS: Enoxaparin 40 mg Syringe SC SCH (09:32)
--- NOTE | 2018-02-09 11:17 | RAD ---
HISTORY: Small bowel obstruction COMPARISON: Comparison made with abdominal radiographs and CT scan of the abdomen pelvis dated 01/28/2018 and 01/26/2018 respectively. FINDINGS: In situ NGT, the tip of which overlies right parasagittal upper abdomen. No evidence acute mechanical bowel obstruction seen at this time. BOWEL: No evidence acute mechanical small bowel obstruction. . Apparent ostomy hardware right antral lateral lower abdomen. Clinical correlation with surgical history and physical exam BONES: Mild multilevel degenerative spondylosis of the lumbar and a lesser degree lower thoracic spine. There is also mild levoscoliosis centered in the upper lumbar region. OTHER FINDINGS: None. IMPRESSION: In situ NGT. No evidence acute mechanical small bowel obstruction. Apparent ostomy hardware right lower quadrant of the abdomen
[2018-02-09] MEDS ORDERED: MethylPREDNISolone 40 mg Vial IVP SCH (11:30)
[2018-02-09] MEDS: MethylPREDNISolone 40 mg Vial IVP SCH ×2 (12:36→20:27)
[2018-02-09] MEDS ORDERED: Albuterol-Ipratrop 3 mg / 0.5 (3 ml) UD INH STA (12:41)
[2018-02-09] MEDS: Sodium Chloride 0.9% 1,000 ML IV SCH (14:02)
[2018-02-09 14:42] LABS: ABG ALLEN TEST P0S; ARTERIAL BLOOD GAS HCO3 28.5 mmol/L (21-28); ARTERIAL BLOOD GAS HEMOGLOBIN 9.5 g/dL (11.7-17.4); ARTERIAL BLOOD GAS O2 SAT 100.9 % (95-98); ARTERIAL BLOOD GAS PCO2 43 mm/Hg (35-45); ARTERIAL BLOOD GAS PH 7.44 (7.35-7.45); ARTERIAL BLOOD GAS PO2 203 mm/Hg (80-100); ARTERIAL BLOOD GAS TCO2 30.5 mmol/L (22-28)
--- NOTE | 2018-02-09 23:55 | CP.PCM.PN ---
Subjective - Date & Time of Evaluation Date of Evaluation: 02/09/18 Time of Evaluation: 19:00 - Subjective Subjective: Pt seen and examined at bedside Objective - Vital Signs/Intake and Output Vital Signs (last 24 hours): Temp Pulse Resp BP Pulse Ox 98.2 F 127 H 20 137/82 99 02/09/18 15:52 02/09/18 23:43 02/09/18 15:52 02/09/18 15:52 02/09/18 15:52 Intake and Output: 02/09/18 02/10/18 18:59 06:59 Intake Total 300 Output Total 50 Balance 250 - Medications Medications: Current Medications Albuterol/Ipratropium (Duoneb 3 Mg/0.5 Mg (3 Ml) Ud) 3 ml INH RQ4 [facility] Last Admin: 02/09/18 23:42 Dose: 3 ml Alprazolam (Xanax) 0.25 mg PO TID [facility] Stop: 02/16/18 10:01 Last Admin: 02/09/18 17:46 Dose: 0.25 mg Enoxaparin Sodium (Lovenox) 40 mg SC DAILY [facility] Last Admin: 02/09/18 09:32 Dose: 40 mg Hydromorphone HCl (Dilaudid) 1 mg IVP Q4H PRN PRN Reason: Pain, severe (8-10) Last Admin: 02/09/18 23:44 Dose: 1 mg Sodium Chloride (Sodium Chloride 0.9%) 1,000 mls @ 125 mls/hr IV .Q8H [facility] Last Admin: 02/09/18 14:02 Dose: Not Given Piperacillin Sod/Tazobactam Sod (Zosyn 4.5 Gm Iv Premix) 4.5 gm in 100 mls @ 200 mls/hr IVPB Q6H [facility] PRN Reason: Protocol Last Admin: 02/09/18 23:47 Dose: 200 mls/hr Methylprednisolone (Solu-Medrol) 60 mg IVP Q8H [facility] Last Admin: 02/09/18 20:27 Dose: 60 mg Ondansetron HCl (Zofran Inj) 4 mg IVP Q6 PRN PRN Reason: Nausea/Vomiting Last Admin: 02/08/18 13:50 Dose: 4 mg Pantoprazole Sodium (Protonix Inj) 40 mg IVP DAILY [facility] Last Admin: 02/09/18 09:31 Dose: 40 mg Roflumilast (Daliresp) 500 mcg PO DAILY [facility] Last Admin: 02/09/18 09:01 Dose: Not Given - Labs Labs: 02/09/18 06:36 02/09/18 06:36
--- NOTE | 2018-02-10 01:46 | CON ---
DATE: 02/09/2018 CARDIOLOGY CONSULTATION REASON FOR CONSULTATION: Sinus tachycardia and shortness of breath. HISTORY OF PRESENT ILLNESS: The patient is a 67 years old male who is known to me from many prior admissions as he has advanced chronic obstructive lung disease, on nasal O2; history of colorectal cancer, underwent resection with ileostomy; however, he had difficulty with ileostomy closure and was recently admitted for small bowel obstruction on 01/26/2018 and was transferred to acute rehab to be admitted for the similar clinical scenario of the small bowel obstruction. The patient in 12/2017 had a prolonged hospitalization after the attempted closure of the ileostomy. The patient during that time required incision and drainage for the perianal abscess. The patient has sinus tachycardia, which is considered to a physiologic response due to the patient's current medical problems including the COPD and the small bowel obstruction. The patient also has a history of anxiety and is on Xanax for that. PAST MEDICAL HISTORY: Colorectal cancer, status post resection and ileostomy. Chronic obstructive lung disease. One episode of atrial fibrillation in the remote past. SOCIAL HISTORY: The patient is a former smoker. He is . He lived with his until recently. He has been into different acute and subacute rehabs. MEDICATIONS: Current medications are Dilaudid 1 mg intravenously every 4 hours p.r.n., Lovenox 40 mg subcutaneously daily, Protonix 40 mg IV intravenously daily, Solu-Medrol 60 mg intravenously every 8 hours, Xanax 0.25 mg t.i.d., Zofran 4 mg intravenously every 6 hours p.r.n., Zosyn 4.5 gm intravenously every 6 hours. REVIEW OF SYSTEMS: The patient's abdominal discomfort improved today and started to have output through the ileostomy stoma. The patient denies any retrosternal chest pain. The patient is currently anxious because of his shortness of breath. PHYSICAL EXAMINATION: GENERAL: The patient is an elderly male who is anxious and tachypneic. VITAL SIGNS: Blood pressure 153/93, heart rate 112, temperature 97.5, and respirations 20. HEENT: Pale conjunctivae. CHEST: Diffuse bilateral rhonchi. HEART: S1, S2 regular. No gallop or rub. ABDOMEN: Diminished bowel sounds, mildly distended. EXTREMITIES: No edema. Significant muscle wasting. LABORATORY DATA: SMA-7: Sodium 140, potassium 2.9, chloride 98, CO2 of 35, glucose 88, BUN 5, creatinine 0.5. Today's hemoglobin and hematocrit 9.3 and 29.6, white count 11.4, and platelet count 348,000. Abdominal x-ray: In situ NG tube. No evidence of acute mechanical small bowel obstruction. Apparent ostomy hardware, right lower quadrant of the abdomen. Chest x-ray: No active disease. EKG: No EKG found on the database. ASSESSMENT: 1. Sinus tachycardia on the monitor, which is physiologic and warrants treatment only over the primary condition. 2. Improved small bowel obstruction. 3. Exacerbation of chronic obstructive lung disease. 4. Anxiety. 5. Significant hypokalemia. RECOMMENDATIONS: The patient did receive IV potassium replacement today. I did order Solu-Medrol 80 mg intravenously as single dose followed by the same dose every 8 hours. I did discuss this issue with Dr. Nuno who welcomed and evaluated the patient, his e commerce strategist. Continue subcutaneous Lovenox 40 mg once a day, Zosyn at 4.5 gm intravenously every 6 hours, Protonix 40 mg intravenously daily, and Xanax 0.25 mg t.i.d. Mukesh Correia MD
[2018-02-10] MEDS: Piperacill/Tazo 4.5gm in Dex 4.5 GM/100 ML BAG IVPB SCH ×4 (05:16→23:27)
[2018-02-10] MEDS: MethylPREDNISolone 40 mg Vial IVP SCH ×3 (05:19→20:51)
[2018-02-10] MEDS: Albuterol-Ipratrop 3 mg / 0.5 (3 ml) UD INH SCH ×6 (05:42→23:33)
[2018-02-10] MEDS: HYDROmorphone 1 mg/ml ISec IVP PRN ×4 (08:42→22:06)
[2018-02-10 08:54] LABS: HEMOGLOBIN 9.1 g/dL (12.0-18.0); MEAN CELL VOLUME 66.8 fL (80.0-94.0); MEAN CORPUSCULAR HEMOGLOBIN 21.3 pg (27.0-31.0); MEAN CORPUSCULAR HGB CONC 31.9 g/dL (33.0-37.0); RBC 4.28 Mil/uL (4.40-5.90); RED CELL DISTRIBUTION WIDTH 17.8 % (11.5-14.5); WHITE BLOOD COUNT 8.9 K/uL (4.8-10.8)
--- NOTE | 2018-02-10 09:00 | CP.PCM.PN ---
Subjective - Date & Time of Evaluation Date of Evaluation: 02/10/18 Time of Evaluation: 08:58 - Subjective Subjective: General Surgery Progress Note for Dr. Nieto This 67M was seen and evaluated this AM at bedside. No acute events reported overnight. Patient continues to have output. Self started on fulls yesterday and tolerating. Denies any nausea vomiting or chest pain. Objective - Vital Signs/Intake and Output Vital Signs (last 24 hours): Temp Pulse Resp BP Pulse Ox 98.9 F 100 H 20 133/88 100 02/10/18 07:00 02/10/18 08:30 02/10/18 07:00 02/10/18 07:00 02/10/18 07:00 Intake and Output: 02/10/18 02/10/18 06:59 18:59 Intake Total 900 Output Total 500 Balance 400 - Medications Medications: Current Medications Albuterol/Ipratropium (Duoneb 3 Mg/0.5 Mg (3 Ml) Ud) 3 ml INH RQ4 [facility] Last Admin: 02/10/18 08:27 Dose: 3 ml Alprazolam (Xanax) 0.25 mg PO TID [facility] Stop: 02/16/18 10:01 Last Admin: 02/09/18 17:46 Dose: 0.25 mg Enoxaparin Sodium (Lovenox) 40 mg SC DAILY [facility] Last Admin: 02/09/18 09:32 Dose: 40 mg Hydromorphone HCl (Dilaudid) 1 mg IVP Q4H PRN PRN Reason: Pain, severe (8-10) Last Admin: 02/10/18 08:42 Dose: 1 mg Sodium Chloride (Sodium Chloride 0.9%) 1,000 mls @ 125 mls/hr IV .Q8H [facility] Last Admin: 02/10/18 00:00 Dose: 125 mls/hr Piperacillin Sod/Tazobactam Sod (Zosyn 4.5 Gm Iv Premix) 4.5 gm in 100 mls @ 200 mls/hr IVPB Q6H [facility] PRN Reason: Protocol Last Admin: 02/10/18 05:16 Dose: 200 mls/hr Methylprednisolone (Solu-Medrol) 60 mg IVP Q8H [facility] Last Admin: 02/10/18 05:19 Dose: 60 mg Ondansetron HCl (Zofran Inj) 4 mg IVP Q6 PRN PRN Reason: Nausea/Vomiting Last Admin: 02/08/18 13:50 Dose: 4 mg Pantoprazole Sodium (Protonix Inj) 40 mg IVP DAILY [facility] Last Admin: 02/09/18 09:31 Dose: 40 mg Roflumilast (Daliresp) 500 mcg PO DAILY [facility] Last Admin: 02/09/18 09:01 Dose: Not Given - Labs Labs: 02/10/18 08:50 02/09/18 06:36 - Constitutional Appears: Non-toxic, No Acute Distress - Head Exam Head Exam: ATRAUMATIC, NORMOCEPHALIC - Eye Exam Eye Exam: EOMI, Normal appearance - Respiratory Exam Respiratory Exam: NORMAL BREATHING PATTERN - Cardiovascular Exam Cardiovascular Exam: +S1, +S2 - GI/Abdominal Exam GI & Abdominal Exam: Soft. absent: Guarding, Rigid, Tenderness Additional comments: Ostomy bag with stool present. - Neurological Exam Neurological Exam: Alert, Awake - Psychiatric Exam Psychiatric exam: Normal Affect, Normal Mood - Skin Skin Exam: Dry, Intact Assessment and Plan - Assessment and Plan (Free Text) Assessment: 67M presents with high grade bowel obstruction transition point at site of stoma /fistula Leukocytosis resolving Full liquid diet today if tolerating will give puree for dinner further recs per Dr. Emilia Woods PGY2
[2018-02-10 09:06] LABS: ALB/GLOB RATIO 1.3 (1.0-2.1); ALBUMIN 3.5 g/dL (3.5-5.0); ALT/SGPT 26 U/L (21-72); AST/SGOT 19 U/L (17-59); BLOOD UREA NITROGEN 7 mg/dL (9-20); CALCIUM 8.7 mg/dl (8.6-10.4); GFR AFRICAN-AMERICAN > 60; GFR NON-AFRICAN AMERICAN > 60
[2018-02-10] MEDS: Enoxaparin 40 mg Syringe SC SCH (09:54)
[2018-02-10] MEDS: (Novolog) Insulin Aspart, Recombinant 100 u/ml 10 ml vial SC SCH ×3 (12:45→22:00)
[2018-02-10] MEDS: Sodium Chloride 0.9% 1,000 ML IV SCH ×4 (12:49→22:05)
--- NOTE | 2018-02-10 18:06 | CP.PCM.PN ---
Subjective - Date & Time of Evaluation Date of Evaluation: 02/10/18 Time of Evaluation: 16:30 - Subjective Subjective: patient seen and examined Complaining of wheezing, cough and shortness of breath Sitting comfortably in no distress Patient is off BiPAP Denies abdominal pain Objective - Vital Signs/Intake and Output Vital Signs (last 24 hours): Temp Pulse Resp BP Pulse Ox 8.7 F L 107 H 96 H 123/76 98 02/10/18 15:44 02/10/18 16:00 02/10/18 15:44 02/10/18 15:44 02/10/18 11:31 Intake and Output: 02/10/18 02/10/18 06:59 18:59 Intake Total 900 1200 Output Total 500 1500 Balance 400 -300 - Medications Medications: Current Medications Albuterol/Ipratropium (Duoneb 3 Mg/0.5 Mg (3 Ml) Ud) 3 ml INH RQ4 [facility] Last Admin: 02/10/18 15:49 Dose: 3 ml Alprazolam (Xanax) 0.25 mg PO TID [facility] Stop: 02/16/18 10:01 Last Admin: 02/10/18 17:20 Dose: 0.25 mg Enoxaparin Sodium (Lovenox) 40 mg SC DAILY [facility] Last Admin: 02/10/18 09:54 Dose: 40 mg Hydromorphone HCl (Dilaudid) 1 mg IVP Q4H PRN PRN Reason: Pain, severe (8-10) Last Admin: 02/10/18 13:35 Dose: 1 mg Sodium Chloride (Sodium Chloride 0.9%) 1,000 mls @ 125 mls/hr IV .Q8H [facility] Last Admin: 02/10/18 14:08 Dose: Not Given Piperacillin Sod/Tazobactam Sod (Zosyn 4.5 Gm Iv Premix) 4.5 gm in 100 mls @ 200 mls/hr IVPB Q6H [facility] PRN Reason: Protocol Last Admin: 02/10/18 17:21 Dose: 200 mls/hr Insulin Aspart (Novolog) 0 unit SC ACHS [facility] PRN Reason: Protocol Last Admin: 02/10/18 17:20 Dose: 4 units Methylprednisolone (Solu-Medrol) 60 mg IVP Q8H [facility] Last Admin: 02/10/18 12:14 Dose: 60 mg Ondansetron HCl (Zofran Inj) 4 mg IVP Q6 PRN PRN Reason: Nausea/Vomiting Last Admin: 02/08/18 13:50 Dose: 4 mg Pantoprazole Sodium (Protonix Inj) 40 mg IVP DAILY [facility] Last Admin: 02/10/18 09:54 Dose: 40 mg Roflumilast (Daliresp) 500 mcg PO DAILY [facility] Last Admin: 02/10/18 09:54 Dose: 500 mcg - Labs Labs: 02/10/18 08:50 02/10/18 08:50 - Head Exam Head Exam: ATRAUMATIC, NORMOCEPHALIC - ENT Exam ENT Exam: Mucous Membranes Moist - Neck Exam Neck Exam: Normal Inspection - Respiratory Exam Respiratory Exam: Decreased Breath Sounds - Cardiovascular Exam Cardiovascular Exam: REGULAR RHYTHM Assessment and Plan (1) COPD (chronic obstructive pulmonary disease) Assessment & Plan: Nebulizer treatment IV steroids BiPAP at night and as needed daliresp Status: Acute (2) Small bowel obstruction Status: Acute
--- NOTE | 2018-02-10 19:10 | PN ---
DATE: 02/10/2018 SUBJECTIVE: The patient's shortness of breath has improved. Denies any exertional chest pain, abdominal pain also slightly improved. The patient is allowed oral intake of clear liquids. PHYSICAL EXAMINATION: VITAL SIGNS: Blood pressure 133/73, heart rate 115, temperature 97.3, respirations 20. HEENT: Pale conjunctivae. CHEST: Minimal rhonchi. HEART: S1 and S2, regular. ABDOMEN: Diminished bowel sounds. EXTREMITIES: No edema. LABORATORY DATA: Today's hemoglobin and hematocrit 9.1 and 28.6. White count and platelet count are within normal limits. Today's SMA-7: Sodium 137, potassium 3.7, chloride 97, CO2 31, glucose 165, BUN 7, creatinine 0.6. ASSESSMENT: 1. Status post distant small-bowel obstruction. 2. Chronic obstructive lung disease. 3. Physiological sinus tachycardia. 4. Anemia. 5. Anxiety disorder. RECOMMENDATIONS: Continue current pain management with Dilaudid 0.5 mg intravenously every 4 hours p.r.n., Lovenox 40 mg subcutaneous once a day, Protonix 40 mg intravenously daily, Solu-Medrol 60 mg intravenously every 8 hours, Zosyn at 4.5 gm intravenously every 6 hours. Case was discussed with Dr. Hal Garcia today. Mukesh Correia MD
[2018-02-11] MEDS: HYDROmorphone 1 mg/ml ISec IVP PRN ×5 (02:58→23:44)
--- NOTE | 2018-02-11 03:11 | CP.PCM.PN ---
Subjective - Date & Time of Evaluation Date of Evaluation: 02/10/18 Time of Evaluation: 19:00 - Subjective Subjective: Pt seen and examined, is feeling better, is fed by NG tube, Complaining of wheezing, cough and shortness of breath Sitting comfortably in no distress Patient is off BiPAP Denies abdominal pain Objective - Vital Signs/Intake and Output Vital Signs (last 24 hours): Temp Pulse Resp BP Pulse Ox 98.5 F 113 H 20 155/79 H 97 02/10/18 23:00 02/10/18 23:33 02/10/18 23:00 02/10/18 23:00 02/10/18 23:00 Intake and Output: 02/10/18 02/11/18 18:59 06:59 Intake Total 1200 1100 Output Total 1500 1300 Balance -300 -200 - Medications Medications: Current Medications Albuterol/Ipratropium (Duoneb 3 Mg/0.5 Mg (3 Ml) Ud) 3 ml INH RQ4 [facility] Last Admin: 02/10/18 23:33 Dose: 3 ml Alprazolam (Xanax) 0.25 mg PO TID [facility] Stop: 02/16/18 10:01 Last Admin: 02/10/18 17:20 Dose: 0.25 mg Enoxaparin Sodium (Lovenox) 40 mg SC DAILY [facility] Last Admin: 02/10/18 09:54 Dose: 40 mg Hydromorphone HCl (Dilaudid) 1 mg IVP Q4H PRN PRN Reason: Pain, severe (8-10) Last Admin: 02/11/18 02:58 Dose: 1 mg Insulin Aspart (Novolog) 0 unit SC [facility] PRN Reason: Protocol Last Admin: 02/10/18 22:00 Dose: Not Given Methylprednisolone (Solu-Medrol) 60 mg IVP Q8H [facility] Last Admin: 02/10/18 20:51 Dose: 60 mg Ondansetron HCl (Zofran Inj) 4 mg IVP Q6 PRN PRN Reason: Nausea/Vomiting Last Admin: 02/08/18 13:50 Dose: 4 mg Pantoprazole Sodium (Protonix Inj) 40 mg IVP DAILY [facility] Last Admin: 02/10/18 09:54 Dose: 40 mg Roflumilast (Daliresp) 500 mcg PO DAILY [facility] Last Admin: 02/10/18 09:54 Dose: 500 mcg - Labs Labs: 02/10/18 08:50 02/10/18 08:50 - Constitutional Appears: Well - Head Exam Head Exam: ATRAUMATIC, NORMAL INSPECTION, NORMOCEPHALIC - Eye Exam Eye Exam: EOMI, Normal appearance, PERRL Pupil Exam: NORMAL ACCOMODATION, PERRL - Respiratory Exam Respiratory Exam: Decreased Breath Sounds, Rhonchi, Wheezes - Cardiovascular Exam Cardiovascular Exam: REGULAR RHYTHM, +S1, +S2. absent: Murmur - GI/Abdominal Exam GI & Abdominal Exam: Soft, Normal Bowel Sounds. absent: Tenderness Assessment and Plan (1) Acute exacerbation of chronic obstructive airways disease Status: Acute (2) Asthma Status: Acute (3) COPD (chronic obstructive pulmonary disease) Status: Acute (4) Allergic rhinitis Status: Chronic (5) CHF (congestive heart failure) Status: Chronic (6) Diabetes Status: Chronic (7) PUNEET (generalized anxiety disorder) Status: Chronic (8) Steroid-induced diabetes Status: Chronic
[2018-02-11] MEDS: Albuterol-Ipratrop 3 mg / 0.5 (3 ml) UD INH SCH ×5 (03:20→19:17)
[2018-02-11] MEDS: MethylPREDNISolone 40 mg Vial IVP SCH ×4 (04:50→22:25)
[2018-02-11] MEDS: (Novolog) Insulin Aspart, Recombinant 100 u/ml 10 ml vial SC SCH ×4 (08:11→22:04)
[2018-02-11] MEDS: Enoxaparin 40 mg Syringe SC SCH (09:20)
--- NOTE | 2018-02-11 11:50 | CP.PCM.CON ---
History of Present Illness - History of Present Illness History of Present Illness: Palliative consult requested by Gus HENSON for Code status discussion Patient is a 67 yo male transferred from [facility] where he complained of abdominal pain and CT abdomen confirmed SBO. On admission NGT inserted. X Ray abdomen resulted resolved SBO. NGT out. Ileostomy which was not working ell while at LT is now draining soft stool. In LTAC patient signed their internal document indicating DNI only. Gus HENSON did not feel comfortable with present document for Code status and Pall care was consulted PMH: S/P SBO, surgical resection and ileostomy creation, anemia, anxiety, CHF, COPD Soc. Hx: , denies smoking/ recreational drug use, has two children Fam. Hx: father with COPD Review of Systems - Constitutional Constitutional: Weakness - EENT Eyes: absent: As Per HPI, Blind Spots, Blurred Vision, Change in Vision, Decreased Night Vision, Diplopia, Discharge, Dry Eye, Exophthalmos, Floaters, Irritation, Itchy Eyes, Loss of Peripheral Vision, Pain, Photophobia, Requires Corrective Lenses, Sees Flashes, Spots in Vision, Tunnel Vision, Other Visual Disturbances, Loss of Vision, Other Ears: absent: As Per HPI, Decreased Hearing, Ear Discharge, Ear Pain, Tinnitus, Abnormal Hearing, Disequilibrium, Dizziness, Other Nose/Mouth/Throat: absent: As Per HPI, Epistaxis, Nasal Congestion, Nasal Discharge, Nasal Obstruction, Nasal Trauma, Nose Pain, Post Nasal Drip, Sinus Pain, Sinus Pressure, Bleeding Gums, Change in Voice, Dental Pain, Dry Mouth, Dysphagia, Halitosis, Hoarsness, Lip Swelling, Mouth Lesions, Mouth Pain, Odynophagia, Sore Throat, Throat Swelling, Tongue Swelling, Facial Pain, Neck Pain, Neck Mass, Other - Cardiovascular Cardiovascular: Dyspnea, Dyspnea on Exertion - Respiratory Respiratory: Dyspnea on Exertion - Gastrointestinal Additional comments: Ileostomy is functional - Genitourinary Genitourinary: absent: As Per HPI, Change in Urinary Stream, Difficulty Urinating, Dysuria, Flank Pain, Hematuria, Pyuria, Nocturia, Urinary Incontinence, Urinary Frequency, Urinary Hesitance, Urinary Urgency, Voiding Freq/Small Amts, Freq UTI, Hx Renal/Bladder Calculi, Hx /Renal Surgery, Bladder Distension, Other - Musculoskeletal Musculoskeletal: Muscle Weakness - Integumentary Integumentary: absent: As Per HPI, Acne, Alopecia, Bleeding Lesions, Change in Hair, Change in Nails, Change in Pigmentation, Changing Lesions, Dry Skin, Erythema, Furuncle, Hirsutism, Lesions, New Lesions, Non-Healing Lesions, Photosensitivity, Pruritus, Rash, Skin Pain, Skin Ulcer, Sores, Striae, Swelling , Unusual Bruising, Wounds, Jaundice, Other - Neurological Neurological: absent: As Per HPI, Abnormal Gait, Abnormal Hearing, Abnormal Movements, Abnormal Speech, Behavioral Changes, Burning Sensations, Confusion, Convulsions, Disequilibrium, Dizziness, Numbness, Focal Weakness, Frequent Falls , Headaches, Lack of Coordination, Loss of Vision, Memory Loss, Paresthesias, Radicular Pain, Restless Legs, Sensory Deficit, Syncope, Tingling, Tremor, Vertigo, Weakness, Other Visual Disturbances, Other - Psychiatric Psychiatric: absent: As Per HPI, Abnormal Sleep Pattern, Anhedonia, Anxiety, Auditory Hallucinations, Behavioral Changes, Change in Appetite, Change in Libido, Confusion, Depression, Difficulty Concentrating, Hallucinations, Homicidal Ideation, Hopelessness, Irritability, Memory Loss, Mood Swings, Panic Attacks, Paranoia, Suicidal Ideation, Visual Hallucinations, Tactile Hallucinations, Other - Endocrine Endocrine: absent: As Per HPI, Change in Body Appearance, Change in Libido, Cold Intolorance, Deepening of Voice, Excessive Sweating, Fatigue, Flushing, Heat Intolorance, Increase in Ring/Shoe/Hat Size, Palpitations, Polydipsia, Polyphagia, Polyuria, Other - Hematologic/Lymphatic Hematologic: absent: As Per HPI, Easy Bleeding, Easy Bruising, Lymphadenopathy, Other Past Patient History - Infectious Disease Hx of Infectious Diseases: None - Past Medical History & Family History Past Medical History?: Yes - Past Social History Smoking Status: Former Smoker - CARDIAC Hx Congestive Heart Failure: Yes Hx Hypercholesterolemia: Yes Hx Hypertension: Yes - PULMONARY Hx Chronic Obstructive Pulmonary Disease (COPD): Yes - NEUROLOGICAL Hx Neurological Disorder: No HX Cerebrovascular Accident: No - HEENT Hx HEENT Problems: Yes Hx Cataracts: Yes (left cataract removed, r cataract) Hx Deafness: No Hx Difficulty Chewing: No Hx Epistaxis: No Hx Glaucoma: No Hx Macular Degeneration: No Other/Comment: wears eyeglasses for distance - RENAL Hx Chronic Kidney Disease: Yes Hx Kidney Stones: Yes - ENDOCRINE/METABOLIC Hx Endocrine Disorders: Yes 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 - MUSCULOSKELETAL/RHEUMATOLOGICAL Hx Arthritis: Yes - GASTROINTESTINAL Hx Gastritis: No - PSYCHIATRIC Hx Anxiety: Yes Hx Substance Use: No - SURGICAL HISTORY Hx Surgeries: Yes Hx Cataract Extraction: Yes (left eye, right eye) Hx Cardiac Catheterization: Yes (11/2015) Hx Eye Surgery: Yes Hx Pulmonary Surgery: Yes Other/Comment: colon resection with right ileostomy - ANESTHESIA Hx Anesthesia: Yes Hx Anesthesia Reactions: No Hx Malignant Hyperthermia: No Meds Allergies/Adverse Reactions: Allergies Allergy/AdvReac Type Severity Reaction Status Date / Time acetaminophen [From Tylenol] Allergy RASH Verified 02/07/18 22:11 FISH Allergy SWELLING Verified 02/07/18 22:11 shrimp Allergy SHORTNESS Verified 02/07/18 22:11 OF BREATH IV dye Allergy Severe ANAPHYLAXIS Uncoded 02/07/18 22:11 - Medications Medications: Current Medications Albuterol/Ipratropium (Duoneb 3 Mg/0.5 Mg (3 Ml) Ud) 3 ml INH RQ4 [facility] Last Admin: 02/11/18 07:21 Dose: 3 ml Alprazolam (Xanax) 0.25 mg PO TID [facility] Stop: 02/16/18 10:01 Last Admin: 02/11/18 09:19 Dose: 0.25 mg Enoxaparin Sodium (Lovenox) 40 mg SC DAILY [facility] Last Admin: 02/11/18 09:20 Dose: 40 mg Hydromorphone HCl (Dilaudid) 1 mg IVP Q4H PRN PRN Reason: Pain, severe (8-10) Last Admin: 02/11/18 09:21 Dose: 1 mg Insulin Aspart (Novolog) 0 unit SC ACHS [facility] PRN Reason: Protocol Last Admin: 02/11/18 08:11 Dose: 2 units Methylprednisolone (Solu-Medrol) 60 mg IVP Q8H [facility] Last Admin: 02/11/18 04:50 Dose: 60 mg Ondansetron HCl (Zofran Inj) 4 mg IVP Q6 PRN PRN Reason: Nausea/Vomiting Last Admin: 02/08/18 13:50 Dose: 4 mg Pantoprazole Sodium (Protonix Inj) 40 mg IVP DAILY [facility] Last Admin: 02/11/18 09:20 Dose: 40 mg Roflumilast (Daliresp) 500 mcg PO DAILY [facility] Last Admin: 02/11/18 09:19 Dose: 500 mcg Physical Exam - Constitutional Appears: Chronically Ill - Head Exam Head Exam: ATRAUMATIC, NORMAL INSPECTION, NORMOCEPHALIC - Eye Exam Eye Exam: EOMI, Normal appearance, PERRL Pupil Exam: NORMAL ACCOMODATION, PERRL - ENT Exam ENT Exam: Mucous Membranes Moist, Normal Exam - Neck Exam Neck exam: Positive for: Normal Inspection - Respiratory Exam Respiratory Exam: NORMAL BREATHING PATTERN Additional comments: moist productive cough - Cardiovascular Exam Cardiovascular Exam: Tachycardia - GI/Abdominal Exam GI & Abdominal Exam: Normal Bowel Sounds Additional comments: Ileostomy functional - Rectal Exam Rectal Exam: Deferred - Exam Exam: NORMAL INSPECTION - Extremities Exam Extremities exam: Positive for: normal inspection - Back Exam Back exam: NORMAL INSPECTION - Neurological Exam Neurological exam: Alert, Oriented x3 - Psychiatric Exam Psychiatric exam: Anxious - Skin Skin Exam: Normal Color, Warm Results - Vital Signs Recent Vital Signs: Last Vital Signs Temp 98.0 F 02/11/18 07:00 Pulse 84 02/11/18 07:42 Resp 20 02/11/18 07:00 BP 143/77 02/11/18 07:00 Pulse Ox 100 02/11/18 07:00 - Labs Result Diagrams: 02/10/18 08:50 02/10/18 08:50 Labs: Laboratory Results - last 24 hr 02/10/18 02/10/18 02/10/18 11:20 16:03 21:12 POC Glucose (mg/dL) 237 H 265 H 254 H 02/11/18 06:08 POC Glucose (mg/dL) 192 H Assessment & Plan - Assessment and Plan (Free Text) Assessment: Palliative consult DNI per [facility] document, prior to this consult, PCP 30% I reviewed medical records, all diagnostic studies, examined and interviewed patient in the bed. Patient is alert, oriented X 3, [place] and Serbian speaking. Patient admits to be feeling weak, unable to walk due to prolonged bed rest , and is hungry. at bed side. Breath sounds are moist, there is productive cough with sputum production. Abdomen is soft, denies abdominal pain, ileostomy drains soft stool. Patient moves extremitiesX4 freely, but admits to weakness and inability t walk. No pedal edema. WBC 8.9, Hb 9.1. B 146/77. Goals of care discussed with patient and his . Patient very strongly suggested he was not going back to LTAC. Patient hopes, ultimately he will be able to return home, once he gets stronger. Patient wishes he is being discharged to [facility] for PT. supported him. Code status discussed. I showed patient and his document he signed at [facility]. Patient remembered signing it. I offered more information about code status and DNR/DNI. FRED introduced. Patent was very clear that he would want Full Medical treatment and all ordinary measures to support his life. If conditions worsens and his life would depend on life support, he would want to be allowed natural . FRED signed. This was shared with juan diego Weber EAR NOSE AND THROAT SPECIALIST and SS. Away from bed side, patient's expressed concern about her inability to take care of patient if he returns home. I reassured her that patient will need PT at [facility] before discharge. She accepted it. Impression * Chronically ill man with resolved acute SBO * Weakness due to prolonged bed rest * Unable to walk due to weakness * Moist cough * Reports good appetite * Ileostomy in situ, body image disturbance * has mixed feelings about patient's ultimately going home * Patient wishes to return home when recovers * Patient wants natural if ordinary measures are not enpugh to support his life Suggestion * OOB with PT * Pulmonary toileting * Advance diet * Discharge planing to [facility] * DNR/DNI Advance care planing 45 min
--- NOTE | 2018-02-11 15:22 | CP.PCM.PN ---
Subjective - Date & Time of Evaluation Date of Evaluation: 02/11/18 Time of Evaluation: 15:20 - Subjective Subjective: Surgery: Dr. Nieto Pt seen and examined. Resting comfortably in bed. Pain controlled. Tolerating CLD. No N/V. Objective - Vital Signs/Intake and Output Vital Signs (last 24 hours): Temp Pulse Resp BP Pulse Ox 98.0 F 133 H 20 143/77 100 02/11/18 07:00 02/11/18 12:00 02/11/18 07:00 02/11/18 07:00 02/11/18 07:00 Intake and Output: 02/11/18 02/11/18 06:59 18:59 Intake Total 1100 Output Total 1300 Balance -200 - Medications Medications: Current Medications Albuterol/Ipratropium (Duoneb 3 Mg/0.5 Mg (3 Ml) Ud) 3 ml INH RQ4 [facility] Last Admin: 02/11/18 13:39 Dose: 3 ml Alprazolam (Xanax) 0.25 mg PO TID [facility] Stop: 02/16/18 10:01 Last Admin: 02/11/18 13:28 Dose: 0.25 mg Enoxaparin Sodium (Lovenox) 40 mg SC DAILY [facility] Last Admin: 02/11/18 09:20 Dose: 40 mg Hydromorphone HCl (Dilaudid) 1 mg IVP Q4H PRN PRN Reason: Pain, severe (8-10) Last Admin: 02/11/18 13:30 Dose: 1 mg Insulin Aspart (Novolog) 0 unit SC ACHS [facility] PRN Reason: Protocol Last Admin: 02/11/18 12:41 Dose: 4 units Methylprednisolone (Solu-Medrol) 60 mg IVP Q8H [facility] Last Admin: 02/11/18 12:42 Dose: 60 mg Ondansetron HCl (Zofran Inj) 4 mg IVP Q6 PRN PRN Reason: Nausea/Vomiting Last Admin: 02/08/18 13:50 Dose: 4 mg Pantoprazole Sodium (Protonix Inj) 40 mg IVP DAILY [facility] Last Admin: 02/11/18 09:20 Dose: 40 mg Roflumilast (Daliresp) 500 mcg PO DAILY [facility] Last Admin: 02/11/18 09:19 Dose: 500 mcg - Labs Labs: 02/10/18 08:50 07/01/18 08:50 - Constitutional Appears: Non-toxic, No Acute Distress - Head Exam Head Exam: ATRAUMATIC, NORMOCEPHALIC - Eye Exam Eye Exam: EOMI Pupil Exam: NORMAL ACCOMODATION - ENT Exam ENT Exam: Mucous Membranes Moist - Neck Exam Neck Exam: Full ROM - Respiratory Exam Respiratory Exam: NORMAL BREATHING PATTERN. absent: Accessory Muscle Use, Respiratory Distress - GI/Abdominal Exam GI & Abdominal Exam: Soft. 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
--- NOTE | 2018-02-11 16:05 | CP.PCM.PN ---
Subjective - Date & Time of Evaluation Date of Evaluation: 02/11/18 Time of Evaluation: 13:30 - Subjective Subjective: patient seen and examined Breathing and cough much better On BiPAP at night or as needed Seen by surgery and diet advanced Continue present treatment Objective - Vital Signs/Intake and Output Vital Signs (last 24 hours): Temp Pulse Resp BP Pulse Ox 98.2 F 118 H 20 127/76 97 02/11/18 15:39 02/11/18 15:41 02/11/18 15:39 02/11/18 15:39 02/11/18 15:39 Intake and Output: 02/11/18 02/11/18 06:59 18:59 Intake Total 1100 Output Total 1300 Balance -200 - Medications Medications: Current Medications Albuterol/Ipratropium (Duoneb 3 Mg/0.5 Mg (3 Ml) Ud) 3 ml INH RQ4 [facility] Last Admin: 02/11/18 13:39 Dose: 3 ml Alprazolam (Xanax) 0.25 mg PO TID [facility] Stop: 02/16/18 10:01 Last Admin: 02/11/18 13:28 Dose: 0.25 mg Enoxaparin Sodium (Lovenox) 40 mg SC DAILY [facility] Last Admin: 02/11/18 09:20 Dose: 40 mg Hydromorphone HCl (Dilaudid) 1 mg IVP Q4H PRN PRN Reason: Pain, severe (8-10) Last Admin: 02/11/18 13:30 Dose: 1 mg Insulin Aspart (Novolog) 0 unit SC ACHS [facility] PRN Reason: Protocol Last Admin: 02/11/18 12:41 Dose: 4 units Methylprednisolone (Solu-Medrol) 60 mg IVP Q8H [facility] Last Admin: 02/11/18 12:42 Dose: 60 mg Ondansetron HCl (Zofran Inj) 4 mg IVP Q6 PRN PRN Reason: Nausea/Vomiting Last Admin: 02/08/18 13:50 Dose: 4 mg Pantoprazole Sodium (Protonix Inj) 40 mg IVP DAILY [facility] Last Admin: 02/11/18 09:20 Dose: 40 mg Roflumilast (Daliresp) 500 mcg PO DAILY [facility] Last Admin: 02/11/18 09:19 Dose: 500 mcg - Labs Labs: 02/10/18 08:50 02/10/18 08:50 Assessment and Plan (1) COPD (chronic obstructive pulmonary disease) Status: Acute (2) Small bowel obstruction Status: Acute
--- NOTE | 2018-02-11 21:50 | CP.PCM.CON ---
History of Present Illness - History of Present Illness History of Present Illness: 67 M with h/o copd, recent ileostomy for bowel obstruction, was in LTAC and sent form LTAC for recurrent SBO, in hospital had NG, later started to have loose stools from ileostomy. Patient was started on duoneb round the clock and steroids for apparent COPD exacerbation. ICU consult was called due to tachycardia noticed on the monitor and patient complaining of palpitations. Patient in LTAC was also on cardizem suggesting h/o tachycardia, was not started due to SBO, also last duoneb treatment around 7 pm. Patient c/o palpitations and on direct questioning about tremors in arms and legs were new form him. Denies sob but opted to use bipap which he used intermittently for COPD for palpitations. Patient has tolerated liquid diet today. PMH as above Allergies noted Family history not contributory Social history Ex smoking and and alcohol about 14 yrs back, lives with family, but recently in LTAC Meds reviewed, both at LTAC and in hospital. Review of Systems - Review of Systems All systems: reviewed and no additional remarkable complaints except (HPI) Past Patient History - Infectious Disease Hx of Infectious Diseases: None - Past Medical History & Family History Past Medical History?: Yes - Past Social History Smoking Status: Former Smoker Drugs: Denies - CARDIAC Hx Congestive Heart Failure: Yes Hx Hypercholesterolemia: Yes Hx Hypertension: Yes - PULMONARY Hx Chronic Obstructive Pulmonary Disease (COPD): Yes - NEUROLOGICAL Hx Neurological Disorder: No HX Cerebrovascular Accident: No - HEENT Hx HEENT Problems: Yes Hx Cataracts: Yes (left cataract removed, r cataract) Hx Deafness: No Hx Difficulty Chewing: No Hx Epistaxis: No Hx Glaucoma: No Hx Macular Degeneration: No Other/Comment: wears eyeglasses for distance - RENAL Hx Chronic Kidney Disease: Yes Hx Kidney Stones: Yes - ENDOCRINE/METABOLIC Hx Endocrine Disorders: Yes 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 - MUSCULOSKELETAL/RHEUMATOLOGICAL Hx Arthritis: Yes - GASTROINTESTINAL Hx Gastritis: No - PSYCHIATRIC Hx Anxiety: Yes Hx Substance Use: No - SURGICAL HISTORY Hx Surgeries: Yes Hx Cataract Extraction: Yes (left eye, right eye) Hx Cardiac Catheterization: Yes (11/2015) Hx Eye Surgery: Yes Hx Pulmonary Surgery: Yes Other/Comment: colon resection with right ileostomy - ANESTHESIA Hx Anesthesia: Yes Hx Anesthesia Reactions: No Hx Malignant Hyperthermia: No Meds Allergies/Adverse Reactions: Allergies Allergy/AdvReac Type Severity Reaction Status Date / Time acetaminophen [From Tylenol] Allergy RASH Verified 02/07/18 22:11 FISH Allergy SWELLING Verified 02/07/18 22:11 shrimp Allergy SHORTNESS Verified 02/07/18 22:11 OF BREATH IV dye Allergy Severe ANAPHYLAXIS Uncoded 02/07/18 22:11 - Medications Medications: Current Medications Albuterol/Ipratropium (Duoneb 3 Mg/0.5 Mg (3 Ml) Ud) 1.5 ml INH RQ6 PRN PRN Reason: Wheezing Alprazolam (Xanax) 0.25 mg PO TID [facility] Stop: 02/16/18 10:01 Last Admin: 02/11/18 17:23 Dose: 0.25 mg Budesonide (Pulmicort Respules) 0.5 mg INH RQ12 [facility] Diltiazem HCl (Cardizem) 60 mg PO QID [facility] Enoxaparin Sodium (Lovenox) 40 mg SC DAILY [facility] Last Admin: 02/11/18 09:20 Dose: 40 mg Hydromorphone HCl (Dilaudid) 1 mg IVP Q4H PRN PRN Reason: Pain, severe (8-10) Last Admin: 02/11/18 18:52 Dose: 1 mg Sodium Chloride (Sodium Chloride 0.9%) 1,000 mls @ 125 mls/hr IV .Q8H [facility] Insulin Aspart (Novolog) 0 unit SC ACHS [facility] PRN Reason: Protocol Last Admin: 02/11/18 17:23 Dose: 4 units Methylprednisolone (Solu-Medrol) 40 mg IVP Q12H [facility] Ondansetron HCl (Zofran Inj) 4 mg IVP Q6 PRN PRN Reason: Nausea/Vomiting Last Admin: 02/08/18 13:50 Dose: 4 mg Pantoprazole Sodium (Protonix Inj) 40 mg IVP DAILY [facility] Last Admin: 02/11/18 09:20 Dose: 40 mg Roflumilast (Daliresp) 500 mcg PO DAILY [facility] Last Admin: 02/11/18 09:19 Dose: 500 mcg Physical Exam - Additional Findings Additional findings: * HEENT JOYCE * Neck supple, no jvd * CVS Regular, with pac on the monitor, tachycardia in 130's * PA mild distension, soft stool in ileostomy, non tender * Ext no edema, turgor low * Skin turgor low * 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, tremor noticed * Results - Vital Signs Recent Vital Signs: Last Vital Signs Temp 98.2 F 02/11/18 15:39 Pulse 110 H 02/11/18 19:18 Resp 20 02/11/18 15:39 BP 127/76 02/11/18 15:39 Pulse Ox 97 02/11/18 15:39 - Labs Result Diagrams: 02/10/18 08:50 02/10/18 08:50 Labs: Laboratory Results - last 24 hr 02/10/18 02/11/18 02/11/18 21:12 06:08 11:21 POC Glucose (mg/dL) 254 H 192 H 253 H 02/11/18 16:08 POC Glucose (mg/dL) 276 H Assessment & Plan - Assessment and Plan (Free Text) Assessment: * Sinus tachycardia with PAC especially after neb treatment, off cardizem and clinically dry, these are th contributing factors * Clinically PE unlikely, ddimer ordered * Recent ileostomy, for sbo, recurrent sbo, now improved * Apparent COPD exacerbation clinically has improved * Mild clinical dehydration due to poor intake and bowel secretions. Plan: * Restart cardizem in slight lower dose as clinically dry * IVF ns at 125ml/hr * Neb treatment only prn 1/2 dose q6h * Reduce steroid dose to 40mg iv 12h as no wheezing currently * Add pulmicort to taper systemic steroid quickly * Will f/u on d dimer * Spoke to Dr Jenkins, and patient's nurse * See orders for detail.
--- NOTE | 2018-02-11 22:11 | PN ---
DATE: 02/11/2018 SUBJECTIVE: The patient is still experiencing shortness of breath and slightly anxious and no retrosternal chest pain. He is allowed full liquid diet and he is tolerating it. No reported ventricular arrhythmia. OBJECTIVE: VITAL SIGNS: Blood pressure 127/76, heart rate 120, temperature 98.2, respirations 20. HEENT: Pale conjunctiva. CHEST: Minimal basilar rhonchi. HEART: S1 and S2 regular. ABDOMEN: Diminished bowel sounds. EXTREMITIES: No edema. LABORATORY DATA: Today's blood sugars are 192, 253 and 276. ASSESSMENT: 1. Status post distal small bowel obstruction. 2. Physiologic sinus tachycardia. 3. Advanced chronic obstructive lung disease. 4. Anemia. 5. Anxiety disorder. RECOMMENDATIONS: Optimize pain management. Continue albuterol inhaler, continue subcutaneous Lovenox 40 mg once a day. Continue Solu-Medrol 60 mg intravenously every 8 hours, Xanax 0.25 mg t.i.d. Blood culture are still negative after three days and we will continue following blood cultures. In the meantime, I will request routine 12-lead EKG. Mukesh Correia MD
[2018-02-11] MEDS: Sodium Chloride 0.9% 1,000 ML IV SCH (22:25)
--- NOTE | 2018-02-11 23:45 | CP.PCM.PN ---
Subjective - Date & Time of Evaluation Date of Evaluation: 02/11/18 Time of Evaluation: 18:45 - Subjective Subjective: Pt seen & examined at bedside Objective - Vital Signs/Intake and Output Vital Signs (last 24 hours): Temp Pulse Resp BP Pulse Ox 98.2 F 110 H 20 127/76 97 02/11/18 15:39 02/11/18 19:18 02/11/18 15:39 02/11/18 15:39 02/11/18 15:39 Intake and Output: 02/11/18 02/12/18 18:59 06:59 Output Total 900 Balance -900 - Medications Medications: Current Medications Albuterol/Ipratropium (Duoneb 3 Mg/0.5 Mg (3 Ml) Ud) 1.5 ml INH RQ6 PRN PRN Reason: Wheezing Alprazolam (Xanax) 0.25 mg PO TID [facility] Stop: 02/16/18 10:01 Last Admin: 02/11/18 17:23 Dose: 0.25 mg Budesonide (Pulmicort Respules) 0.5 mg INH RQ12 [facility] Diltiazem HCl (Cardizem) 60 mg PO QID [facility] Last Admin: 02/11/18 22:25 Dose: 60 mg Enoxaparin Sodium (Lovenox) 40 mg SC DAILY [facility] Last Admin: 02/11/18 09:20 Dose: 40 mg Hydromorphone HCl (Dilaudid) 1 mg IVP Q4H PRN PRN Reason: Pain, severe (8-10) Last Admin: 02/11/18 18:52 Dose: 1 mg Sodium Chloride (Sodium Chloride 0.9%) 1,000 mls @ 125 mls/hr IV .Q8H [facility] Last Admin: 02/11/18 22:25 Dose: 125 mls/hr Insulin Aspart (Novolog) 0 unit SC ACHS [facility] PRN Reason: Protocol Last Admin: 02/11/18 22:04 Dose: Not Given Methylprednisolone (Solu-Medrol) 40 mg IVP Q12H [facility] Last Admin: 02/11/18 22:25 Dose: 40 mg Ondansetron HCl (Zofran Inj) 4 mg IVP Q6 PRN PRN Reason: Nausea/Vomiting Last Admin: 02/08/18 13:50 Dose: 4 mg Pantoprazole Sodium (Protonix Inj) 40 mg IVP DAILY [facility] Last Admin: 02/11/18 09:20 Dose: 40 mg Roflumilast (Daliresp) 500 mcg PO DAILY [facility] Last Admin: 02/11/18 09:19 Dose: 500 mcg - Labs Labs: 02/10/18 08:50 02/10/18 08:50 Assessment and Plan (1) Acute exacerbation of chronic obstructive airways disease Status: Acute (2) Asthma Status: Acute (3) COPD (chronic obstructive pulmonary disease) Status: Acute (4) Allergic rhinitis Status: Chronic (5) CHF (congestive heart failure) Status: Chronic (6) Diabetes Status: Chronic (7) PUNEET (generalized anxiety disorder) Status: Chronic (8) Steroid-induced diabetes Status: Chronic
[2018-02-12] MEDS: Albuterol-Ipratrop 3 mg / 0.5 (3 ml) UD INH PRN (02:12)
[2018-02-12] MEDS: Sodium Chloride 0.9% 1,000 ML IV SCH ×4 (05:16→14:26)
[2018-02-12] MEDS: HYDROmorphone 1 mg/ml ISec IVP PRN (05:46)
[2018-02-12 07:47] LABS: HEMOGLOBIN 9.5 g/dL (12.0-18.0); MEAN CELL VOLUME 67.1 fL (80.0-94.0); MEAN CORPUSCULAR HEMOGLOBIN 21.4 pg (27.0-31.0); MEAN CORPUSCULAR HGB CONC 31.9 g/dL (33.0-37.0); MEAN PLATELET VOLUME 8.1 fL (7.2-11.7); RBC 4.47 Mil/uL (4.40-5.90); RED CELL DISTRIBUTION WIDTH 18.3 % (11.5-14.5)
[2018-02-12] MEDS: Budesonide 0.5 mg/2 ml Inhal Susp UD INH SCH ×2 (08:05→19:45)
[2018-02-12] MEDS: (Novolog) Insulin Aspart, Recombinant 100 u/ml 10 ml vial SC SCH ×4 (08:13→21:42)
[2018-02-12 09:15] LABS: BLOOD UREA NITROGEN 10 mg/dL (9-20); CALCIUM 9.1 mg/dl (8.6-10.4); GFR AFRICAN-AMERICAN > 60; GFR NON-AFRICAN AMERICAN > 60
[2018-02-12] MEDS: Enoxaparin 40 mg Syringe SC SCH (10:11)
[2018-02-12] MEDS: MethylPREDNISolone 40 mg Vial IVP SCH ×2 (10:11→21:23)
[2018-02-12] MEDS ORDERED: HYDROmorphone 0.5 mg/0.5 ml ISec IVP PRN (14:58)
--- NOTE | 2018-02-12 15:07 | CP.PCM.PN ---
Subjective - Date & Time of Evaluation Date of Evaluation: 02/12/18 Time of Evaluation: 07:30 - Subjective Subjective: 67M seen and evaluated this AM. Pt complained of palpitations, SOB, and CP which caused discomfort. Denied any n/v/d, dizziness, or urinary symptoms. Pt is ambulating and tolerating diet. Objective - Vital Signs/Intake and Output Vital Signs (last 24 hours): Temp Pulse Resp BP Pulse Ox 98.0 F 121 H 20 149/90 99 02/12/18 07:00 02/12/18 13:11 02/12/18 07:00 02/12/18 13:11 02/12/18 07:00 Intake and Output: 02/12/18 02/12/18 06:59 18:59 Intake Total 875 Output Total 900 1175 Balance -900 -300 - Medications Medications: Current Medications Albuterol/Ipratropium (Duoneb 3 Mg/0.5 Mg (3 Ml) Ud) 1.5 ml INH RQ6 PRN PRN Reason: Wheezing Last Admin: 02/12/18 02:12 Dose: 1.5 ml Alprazolam (Xanax) 0.5 mg PO Q12 [facility] Stop: 02/19/18 22:01 Budesonide (Pulmicort Respules) 0.5 mg INH RQ12 [facility] Last Admin: 02/12/18 08:05 Dose: 0.5 mg Diltiazem HCl (Cardizem) 60 mg PO QID [facility] Last Admin: 02/12/18 13:07 Dose: 60 mg Enoxaparin Sodium (Lovenox) 40 mg SC DAILY [facility] Last Admin: 02/12/18 10:11 Dose: 40 mg Hydromorphone HCl (Dilaudid) 0.5 mg IVP Q6H PRN PRN Reason: Pain, severe (8-10) Sodium Chloride (Sodium Chloride 0.9%) 1,000 mls @ 125 mls/hr IV .Q8H [facility] Last Admin: 02/12/18 14:26 Dose: 125 mls/hr Insulin Aspart (Novolog) 0 unit SC ACHS [facility] PRN Reason: Protocol Last Admin: 02/12/18 13:08 Dose: 2 units Methylprednisolone (Solu-Medrol) 40 mg IVP Q12H [facility] Last Admin: 02/12/18 10:11 Dose: 40 mg Ondansetron HCl (Zofran Inj) 4 mg IVP Q6 PRN PRN Reason: Nausea/Vomiting Last Admin: 02/08/18 13:50 Dose: 4 mg Pantoprazole Sodium (Protonix Inj) 40 mg IVP DAILY [facility] Last Admin: 02/12/18 10:11 Dose: 40 mg Roflumilast (Daliresp) 500 mcg PO DAILY [facility] Last Admin: 02/12/18 10:11 Dose: 500 mcg - Labs Labs: 02/12/18 07:41 02/12/18 07:41 - Constitutional Appears: Well, No Acute Distress - Head Exam Head Exam: ATRAUMATIC, NORMAL INSPECTION, NORMOCEPHALIC - Eye Exam Eye Exam: EOMI, Normal appearance, PERRL - Respiratory Exam Respiratory Exam: Clear to Ausculation Bilateral, NORMAL BREATHING PATTERN - Cardiovascular Exam Cardiovascular Exam: REGULAR RHYTHM, +S1, +S2. absent: Murmur - GI/Abdominal Exam GI & Abdominal Exam: Soft, Normal Bowel Sounds. absent: Distended, Firm, Guarding, Rigid, Rebound - Neurological Exam Neurological Exam: Alert, Awake, CN II-XII Intact, Normal Gait, Oriented x3 - Skin Skin Exam: Dry, Intact, Normal Color, Warm Assessment and Plan - Assessment and Plan (Free Text) Assessment: 67M w SBO and ileostomy / EC fistula Plan: V/Q scan shows no PE. No change since 12/04/17 No further surgical intervention at this time Please reconsult as needed [place] PGY-1
--- NOTE | 2018-02-12 16:46 | NM ---
COMPARISON: 12/04/2017 TECHNIQUE: 11.8 Xe-133 Gas. Inhaled. 3.9 mCI technetium 99-m MAA administered intravenously. FINDINGS: VENTILATION COMPONENT: Bilateral small to moderate perfusion defects unchanged from prior examination. PERFUSION COMPONENT: Multiple bilateral small to moderate perfusion defects unchanged from 12/04/2017. IMPRESSION: Low probability for pulmonary embolism. No change from 12/04/2017.
--- NOTE | 2018-02-12 17:32 | CP.PCM.PN ---
Subjective - Date & Time of Evaluation Date of Evaluation: 02/12/18 Time of Evaluation: 12:30 - Subjective Subjective: CC: Shortness of breath HPI: 67 year old malepatient with past medical history of ileostomy for bowel obstruction, COPD, anxiety, CHF, anemia. Patient seen and examined at the bedside. Patient reports to have shortness of breath and palpitations. Patient reports that palpitations increase when lung treatment is provided. ROS: Constitutional: Patient denies fever and chills. Cardiovascular: Patient reports palpitations. Denies any chest pain. Respiratory: Patient reports shortness of breath. Patient denies cough. Gastrointestinal: Patient denies nausea, vomiting, diarrhea. PMHx: Ileostomy for bowel obstruction, anxiety, CHF, anemia, COPD, Diabetes Past Surgical History: ileostomy for bowel obstruction Medications: Albuterol/ Ipratropium 1.5 ml INH RQ6 Alprazolam 0.5 mg PO Q 12 Budesonide - 0.5 mg PO RQ12 Diltiazem Hcl - 60 mg PO QID Enoxaparin Sodium - 40 mg SC daily Hydromorphone Hcl - 0.5 mg IVP Q6H PRN Insulin Aspart - 2 units SC Methylprednisolone - 40 mg IVP Q12H Ondansetron Hcl - 4 mg IVP Q6 PRN Pantoprazole Sodium - 40 mg IVP Daily Roflumilast - 500 mcg PO daily Sodium Chloride - 1000 mls @ 125 mls/hr IV Q8h Physical Exam HEENT: Atraumatic, normocephalic, mucuous membranes moist, EOMI Repiratory: Slight wheezing bilaterally upper lungs, no rales, no rhonchi Cardiovascular: +S1/ S2, regular rate and rhythm GI: Soft normal bowel sounds, no tenderness, no distention Extremities: No LE edema Neurological: Alert, awake, oriented X3 Assessment: 67 year old male patient past medical history of ileostomy for bowel obstruction , COPD, anxiety, anemia; patient found to have COPD exacerbation. 1. COPD Exacerbation Status: Chronic - Continue BiPAP treatments -Albuterol/ Ipratropium 1.5 ml INH RQ6 -Budesonide - 0.5 mg PO RQ12 -Roflumilast - 500 mcg PO daily -Pending V/Q scan reading 2. Diabetes Status: Chronic - Insulin Aspart - 2 units SC 3. Anxiety Status: chronic - Alprazolam 0.5 mg PO Q 12 Objective - Vital Signs/Intake and Output Vital Signs (last 24 hours): Temp Pulse Resp BP Pulse Ox 97.9 F 119 H 20 137/85 98 02/12/18 15:24 02/12/18 16:00 02/12/18 15:24 02/12/18 15:24 02/12/18 15:24 Intake and Output: 02/12/18 02/12/18 06:59 18:59 Intake Total 875 Output Total 900 1175 Balance -900 -300 - Medications Medications: Current Medications Albuterol/Ipratropium (Duoneb 3 Mg/0.5 Mg (3 Ml) Ud) 1.5 ml INH RQ6 PRN PRN Reason: Wheezing Last Admin: 02/12/18 02:12 Dose: 1.5 ml Alprazolam (Xanax) 0.5 mg PO Q12 [facility] Stop: 02/19/18 22:01 Budesonide (Pulmicort Respules) 0.5 mg INH RQ12 [facility] Last Admin: 02/12/18 08:05 Dose: 0.5 mg Diltiazem HCl (Cardizem) 60 mg PO QID [facility] Last Admin: 02/12/18 17:23 Dose: 60 mg Enoxaparin Sodium (Lovenox) 40 mg SC DAILY [facility] Last Admin: 02/12/18 10:11 Dose: 40 mg Hydromorphone HCl (Dilaudid) 0.5 mg IVP Q6H PRN PRN Reason: Pain, severe (8-10) Last Admin: 02/12/18 15:06 Dose: 0.5 mg Sodium Chloride (Sodium Chloride 0.9%) 1,000 mls @ 125 mls/hr IV .Q8H [facility] Last Admin: 02/12/18 14:26 Dose: 125 mls/hr Insulin Aspart (Novolog) 0 unit SC ACHS [facility] PRN Reason: Protocol Last Admin: 02/12/18 17:23 Dose: 6 units Methylprednisolone (Solu-Medrol) 40 mg IVP Q12H [facility] Last Admin: 02/12/18 10:11 Dose: 40 mg Ondansetron HCl (Zofran Inj) 4 mg IVP Q6 PRN PRN Reason: Nausea/Vomiting Last Admin: 02/08/18 13:50 Dose: 4 mg Pantoprazole Sodium (Protonix Inj) 40 mg IVP DAILY [facility] Last Admin: 02/12/18 10:11 Dose: 40 mg Roflumilast (Daliresp) 500 mcg PO DAILY [facility] Last Admin: 02/12/18 10:11 Dose: 500 mcg - Labs Labs: 02/12/18 07:41 02/12/18 07:41 Assessment and Plan (1) COPD (chronic obstructive pulmonary disease) Status: Acute (2) Small bowel obstruction Status: Acute
[2018-02-12] MEDS: HYDROmorphone 0.5 mg/0.5 ml ISec IVP PRN (19:32)
--- NOTE | 2018-02-12 23:11 | PN ---
DATE: 02/12/2018 SUBJECTIVE: The patient was significantly tachycardic last night. ICU evaluation was consulted. scan was performed and was still embolus. The patient denies any chest pain at this time. He is likely anxious. PHYSICAL EXAMINATION: VITAL SIGNS: Blood pressure 137/85, heart rate 110, temperature 97.9, respirations 20. HEENT: Normocephalic. CHEST: Bilateral rhonchi. HEART: S1 and S2, regular. ABDOMEN: Diminished bowel sounds. EXTREMITIES: No edema. LABORATORY DATA: Hemoglobin and hematocrit 9.5 and 29.9, white count 13, platelet count 398,000. Today's SMA-7 is within normal limit except for glucose of 204 and creatinine 0.58. ASSESSMENT: Physiologic sinus tachycardia. The patient has underlying multiple medical problems including chronic obstructive pulmonary disease, recent small bowel obstruction, anemia, and anxiety disorder. RECOMMENDATIONS: Continue Cardizem 60 mg four times a day, Dilaudid 0.5 mg intravenously every 6 hours p.r.n., Lovenox 40 mg subcutaneously once a day, Protonix 40 mg intravenously daily, normal saline at 125 mL/hour, Solu-Medrol at 40 mg intravenously every 8 hours, and Zofran 4 mg intravenously every 6 hours p.r.n. Mukesh Correia MD
--- NOTE | 2018-02-12 23:26 | CARD ---
APPROVED REPORT EKG Measurement Heart [id number] <Conclusion> Sinus tachycardia with premature atrial complexes Otherwise normal ECG
[2018-02-13] MEDS: HYDROmorphone 0.5 mg/0.5 ml ISec IVP PRN ×6 (00:26→23:01)
[2018-02-13] MEDS: Sodium Chloride 0.9% 1,000 ML IV SCH ×5 (00:28→21:56)
[2018-02-13 07:04] LABS: BASO % 0.2 % (0.0-2.0); HEMOGLOBIN 9.4 g/dL (12.0-18.0); LYMPH # 0.7 K/uL (1.0-4.3); LYMPH % 7.4 % (20.0-40.0); MEAN CELL VOLUME 66.6 fL (80.0-94.0); MEAN CORPUSCULAR HEMOGLOBIN 21.4 pg (27.0-31.0); MEAN CORPUSCULAR HGB CONC 32.2 g/dL (33.0-37.0); MONO # 0.5 K/uL (0.0-0.8); MONO % 5.1 % (0.0-10.0); NEUT # 8.2 K/uL (1.8-7.0); NEUT % 87.3 % (50.0-75.0); PLATELET COUNT 356 K/uL (130-400); RED CELL DISTRIBUTION WIDTH 18.4 % (11.5-14.5); WHITE BLOOD COUNT 9.4 K/uL (4.8-10.8)
[2018-02-13] MEDS: Budesonide 0.5 mg/2 ml Inhal Susp UD INH SCH ×2 (07:18→19:24)
[2018-02-13 07:22] LABS: BLOOD UREA NITROGEN 10 mg/dL (9-20); CALCIUM 9.1 mg/dl (8.6-10.4); GFR AFRICAN-AMERICAN > 60; GFR NON-AFRICAN AMERICAN > 60
[2018-02-13] MEDS: (Novolog) Insulin Aspart, Recombinant 100 u/ml 10 ml vial SC SCH ×4 (08:11→21:12)
[2018-02-13 10:16] LABS: BANDS 1 % (0-2); LYMPHOCYTE 6 % (20-40); MICROCYTOSIS MODERATE; MONOCYTE 3 % (0-10); NEUTROPHIL 90 % (50-75); PLATELET ESTIMATE NORMAL (NORMAL); TOTAL CELLS COUNTED 100
[2018-02-13 10:17] LABS: ANISOCYTOSIS MODERATE; OVALOCYTES MODERATE; POIKILOCYTOSIS SLIGHT
[2018-02-13] MEDS: MethylPREDNISolone 40 mg Vial IVP SCH ×2 (10:21→21:55)
[2018-02-13] MEDS: Enoxaparin 40 mg Syringe SC SCH (10:21)
--- NOTE | 2018-02-13 16:42 | CP.PCM.PN ---
Subjective - Date & Time of Evaluation Date of Evaluation: 02/13/18 Time of Evaluation: 10:45 - Subjective Subjective: Patient seen and examined Patient states breathing is much better Denies abdominal pain Eating well Afebrile VQ scan low probability Objective - Vital Signs/Intake and Output Vital Signs (last 24 hours): Temp Pulse Resp BP Pulse Ox 97.8 F 104 H 20 120/71 100 02/13/18 15:00 02/13/18 16:00 02/13/18 15:00 02/13/18 15:00 02/13/18 15:00 Intake and Output: 02/13/18 02/13/18 06:59 18:59 Intake Total 1120 Output Total 200 400 Balance -200 720 - Medications Medications: Current Medications Albuterol/Ipratropium (Duoneb 3 Mg/0.5 Mg (3 Ml) Ud) 1.5 ml INH RQ6 PRN PRN Reason: Wheezing Last Admin: 02/12/18 02:12 Dose: 1.5 ml Alprazolam (Xanax) 0.5 mg PO Q12 [facility] Stop: 02/19/18 22:01 Last Admin: 02/13/18 10:21 Dose: 0.5 mg Budesonide (Pulmicort Respules) 0.5 mg INH RQ12 [facility] Last Admin: 02/13/18 07:18 Dose: Not Given Diltiazem HCl (Cardizem) 60 mg PO QID [facility] Last Admin: 02/13/18 13:34 Dose: 60 mg Enoxaparin Sodium (Lovenox) 40 mg SC DAILY [facility] Last Admin: 02/13/18 10:21 Dose: 40 mg Hydromorphone HCl (Dilaudid) 0.5 mg IVP Q4H PRN PRN Reason: Pain, severe (8-10) Last Admin: 02/13/18 14:39 Dose: 0.5 mg Sodium Chloride (Sodium Chloride 0.9%) 1,000 mls @ 125 mls/hr IV .Q8H [facility] Last Admin: 02/13/18 13:50 Dose: Not Given Insulin Aspart (Novolog) 0 unit SC ACHS [facility] PRN Reason: Protocol Last Admin: 02/13/18 11:48 Dose: 3 units Methylprednisolone (Solu-Medrol) 40 mg IVP Q12H [facility] Last Admin: 02/13/18 10:21 Dose: 40 mg Ondansetron HCl (Zofran Inj) 4 mg IVP Q6 PRN PRN Reason: Nausea/Vomiting Last Admin: 02/08/18 13:50 Dose: 4 mg Pantoprazole Sodium (Protonix Inj) 40 mg IVP DAILY [facility] Last Admin: 02/13/18 10:21 Dose: 40 mg Roflumilast (Daliresp) 500 mcg PO DAILY [facility] Last Admin: 02/13/18 10:20 Dose: 500 mcg - Labs Labs: 02/13/18 06:51 02/13/18 06:51 - Head Exam Head Exam: ATRAUMATIC, NORMOCEPHALIC - ENT Exam ENT Exam: Mucous Membranes Moist - Neck Exam Neck Exam: Normal Inspection - Respiratory Exam Respiratory Exam: Decreased Breath Sounds - Cardiovascular Exam Cardiovascular Exam: REGULAR RHYTHM - GI/Abdominal Exam GI & Abdominal Exam: Soft Assessment and Plan (1) COPD (chronic obstructive pulmonary disease) Assessment & Plan: continue nebulizer treatment Steroid Budesonide nebulizer Stable from pulmonary standpoint Status: Acute (2) Small bowel obstruction Status: Acute
[2018-02-13] MEDS: Albuterol-Ipratrop 3 mg / 0.5 (3 ml) UD INH PRN (19:24)
--- NOTE | 2018-02-13 19:43 | PN ---
DATE: 02/13/2018 SUBJECTIVE: The patient's tachycardia has significantly improved. The most recent heart rate taken was 106. The patient is mildly short of breath. He has a nasal tube. PHYSICAL EXAMINATION: VITAL SIGNS: Blood pressure 120/74, heart rate 106, temperature 97.7, respirations 18. HEENT: Pale conjunctivae. CHEST: Bilateral rhonchi. HEART: S1, S2, regular. ABDOMEN: Soft. EXTREMITIES: Significant muscle wasting. LABORATORY DATA: SMA-7: Sodium 136, potassium 4, chloride 100, CO2 of 27, glucose , BUN 10, and creatinine 0.5. Hemoglobin and hematocrit 9.4 and 29.3. White count and platelet counts are within normal limits. ASSESSMENT: 1. Status post distal small bowel mechanical obstruction. 2. Chronic obstructive lung disease. 3. Sinus tachycardia, is a physiologic response to the patient's underlying multiple medical conditions. 4. History of status post resection with ileostomy. 5. History of atrial fibrillation in the past. 6. Anemia. 7. Uncontrolled diabetes mellitus. RECOMMENDATIONS: Continue Cardizem 60 mg q.i.d., Dilaudid 0.5 mg intravenously every 4 hours p.r.n., subcutaneous Lovenox 40 mg once a day, Protonix 40 mg intravenously once a day, Xanax 0.5 mg orally twice a day, Solu-Medrol 40 mg intravenously every 12 hours, and Zofran 4 mg intravenously every 6 hours p.r.n. Mukesh Correia MD
[2018-02-14] MEDS: HYDROmorphone 0.5 mg/0.5 ml ISec IVP PRN ×5 (03:46→21:34)
[2018-02-14] MEDS: Sodium Chloride 0.9% 1,000 ML IV SCH (05:37)
[2018-02-14] MEDS: Budesonide 0.5 mg/2 ml Inhal Susp UD INH SCH ×2 (07:17→19:31)
[2018-02-14] MEDS: (Novolog) Insulin Aspart, Recombinant 100 u/ml 10 ml vial SC SCH ×4 (07:50→21:34)
[2018-02-14] MEDS: MethylPREDNISolone 40 mg Vial IVP SCH ×2 (09:14→21:34)
[2018-02-14] MEDS: Enoxaparin 40 mg Syringe SC SCH (09:15)
--- NOTE | 2018-02-14 19:12 | PN ---
DATE: 02/14/2018 SUBJECTIVE: The patient feels much better. He is able to tolerate regular diet and his breathing has improved as well as his sinus tachycardia. PHYSICAL EXAMINATION: VITAL SIGNS: Blood pressure 112/70, heart rate 81, temperature 98.7, respirations 20. HEENT: Pale conjunctivae. CHEST: Bibasilar rhonchi. HEART: S1 and S2, regular. EXTREMITIES: No edema. LABORATORY DATA: Today's blood sugar of 260 and 261. ASSESSMENT: 1. Sinus tachycardia, has improved. 2. Chronic obstructive lung disease. 3. Status post distal small bowel obstruction. 4. Anemia. 5. Uncontrolled diabetes mellitus. RECOMMENDATIONS: Continue Cardizem 60 mg q.i.d., albuterol inhaler every 6 hours, Lovenox 40 mg subcutaneously once a day, Solu-Medrol 40 mg intravenously every 12 hours, and Zofran 4 mg intravenously every 6 hours p.r.n. The plan is to discharge the patient home. Case was discussed with the primary physician and with the . Mukesh Correia MD
[2018-02-14] MEDS: Albuterol-Ipratrop 3 mg / 0.5 (3 ml) UD INH PRN (19:30)
[2018-02-15] MEDS: HYDROmorphone 0.5 mg/0.5 ml ISec IVP PRN ×4 (01:40→18:11)
[2018-02-15 04:44] VITALS: O2SAT 100
[2018-02-15] MEDS: Budesonide 0.5 mg/2 ml Inhal Susp UD INH SCH (07:00)
[2018-02-15] MEDS: Albuterol-Ipratrop 3 mg / 0.5 (3 ml) UD INH PRN ×2 (07:00→12:00)
[2018-02-15] MEDS: (Novolog) Insulin Aspart, Recombinant 100 u/ml 10 ml vial SC SCH ×3 (09:54→16:56)
[2018-02-15] MEDS: Enoxaparin 40 mg Syringe SC SCH (09:55)
[2018-02-15] MEDS: MethylPREDNISolone 40 mg Vial IVP SCH (09:55)
[2018-02-15] MEDS ORDERED: Pantoprazole 40 mg EC Tab PO SCH (10:00)
--- NOTE | 2018-02-15 12:42 | CP.PCM.PN ---
Subjective - Date & Time of Evaluation Date of Evaluation: 02/15/18 Time of Evaluation: 09:20 - Subjective Subjective: CC: Shortness of breath HPI: Patient seen this morning and examined at the bedside. Patient reports to improvement in his breathing. Patient denies any chest pain or shortness of breath. Patient is afebrile. Patient is waiting to be discharged. ROS: Constitutional: Patient denies fever and chills. Cardiovascular: Patient denies chest pain and palpitations. Respiratory: Patient denies shortness of breath and cough. Gastrointestinal: Patient denies nausea, vomiting, diarrhea. Physical Exam HEENT: Atraumatic, normocephalic, mucuous membranes moist, EOMI Respiratory: Clear to auscultation bilaterally. No wheezing, rhonchi, or rales present. Cardiovascular: +S1/ S2, regular rate and rhythm GI: Soft normal bowel sounds, no tenderness, no distention Extremities: No LE edema Neurological: Alert, awake, oriented X3 Assessment: 67 year old male patient past medical history of ileostomy for bowel obstruction , COPD, anxiety, anemia; patient found to have COPD exacerbation. 1. COPD Exacerbation Status: Chronic - Continue BiPAP treatments -Albuterol/ Ipratropium 1.5 ml INH RQ6 -Budesonide - 0.5 mg PO RQ12 -Roflumilast - 500 mcg PO daily -Patient can be discharged 2. Diabetes Status: Chronic - Insulin Aspart - 2 units SC 3. Anxiety Status: chronic - Alprazolam 0.5 mg PO Q 12 Objective - Vital Signs/Intake and Output Vital Signs (last 24 hours): Temp Pulse Resp BP Pulse Ox 97.4 F L 89 18 116/70 100 02/15/18 07:00 02/15/18 07:00 02/15/18 07:00 02/15/18 07:00 02/15/18 07:00 Intake and Output: 02/15/18 02/15/18 06:59 18:59 Intake Total 480 Output Total 500 Balance -20 - Medications Medications: Current Medications Albuterol/Ipratropium (Duoneb 3 Mg/0.5 Mg (3 Ml) Ud) 1.5 ml INH RQ6 PRN PRN Reason: Wheezing Last Admin: 02/15/18 07:00 Dose: 1.5 ml Alprazolam (Xanax) 0.5 mg PO Q12 [facility] Stop: 02/19/18 22:01 Last Admin: 02/15/18 10:01 Dose: 0.5 mg Budesonide (Pulmicort Respules) 0.5 mg INH RQ12 [facility] Last Admin: 02/15/18 07:00 Dose: 0.5 mg Diltiazem HCl (Cardizem) 60 mg PO QID [facility] Last Admin: 02/15/18 09:55 Dose: 60 mg Enoxaparin Sodium (Lovenox) 40 mg SC DAILY [facility] Last Admin: 02/15/18 09:55 Dose: 40 mg Hydromorphone HCl (Dilaudid) 0.5 mg IVP Q4H PRN PRN Reason: Pain, severe (8-10) Last Admin: 02/15/18 10:34 Dose: 0.5 mg Insulin Aspart (Novolog) 0 unit SC ACHS [facility] PRN Reason: Protocol Last Admin: 02/15/18 12:29 Dose: 4 units Methylprednisolone (Solu-Medrol) 40 mg IVP Q12H [facility] Last Admin: 02/15/18 09:55 Dose: 40 mg Ondansetron HCl (Zofran Inj) 4 mg IVP Q6 PRN PRN Reason: Nausea/Vomiting Last Admin: 02/08/18 13:50 Dose: 4 mg Pantoprazole Sodium (Protonix Ec Tab) 40 mg PO DAILY [facility] Last Admin: 02/15/18 09:55 Dose: 40 mg Roflumilast (Daliresp) 500 mcg PO DAILY [facility] Last Admin: 02/15/18 10:01 Dose: 500 mcg - Labs Labs: 02/13/18 06:51 02/13/18 06:51 Assessment and Plan (1) COPD (chronic obstructive pulmonary disease) Status: Acute (2) Small bowel obstruction Status: Acute
[2018-02-15 16:03] VITALS: BP 114/68; PULSE 106; RESP 22; TEMP 98.5
--- NOTE | 2018-02-15 16:07 | CP.PCM.PN ---
Subjective - Date & Time of Evaluation Date of Evaluation: 02/15/18 Time of Evaluation: 11:15 Objective - Vital Signs/Intake and Output Vital Signs (last 24 hours): Temp Pulse Resp BP Pulse Ox 98.5 F 106 H 22 114/68 100 02/15/18 16:00 02/15/18 16:00 02/15/18 16:00 02/15/18 16:00 02/15/18 16:00 Intake and Output: 02/15/18 02/15/18 06:59 18:59 Intake Total 480 Output Total 500 Balance -20 - Medications Medications: Current Medications Albuterol/Ipratropium (Duoneb 3 Mg/0.5 Mg (3 Ml) Ud) 1.5 ml INH RQ6 PRN PRN Reason: Wheezing Last Admin: 02/15/18 12:00 Dose: 1.5 ml Alprazolam (Xanax) 0.5 mg PO Q12 [facility] Stop: 02/19/18 22:01 Last Admin: 02/15/18 10:01 Dose: 0.5 mg Budesonide (Pulmicort Respules) 0.5 mg INH RQ12 [facility] Last Admin: 02/15/18 07:00 Dose: 0.5 mg Diltiazem HCl (Cardizem) 60 mg PO QID [facility] Last Admin: 02/15/18 14:36 Dose: 60 mg Enoxaparin Sodium (Lovenox) 40 mg SC DAILY [facility] Last Admin: 02/15/18 09:55 Dose: 40 mg Hydromorphone HCl (Dilaudid) 0.5 mg IVP Q4H PRN PRN Reason: Pain, severe (8-10) Last Admin: 02/15/18 14:38 Dose: 0.5 mg Insulin Aspart (Novolog) 0 unit SC ACHS [facility] PRN Reason: Protocol Last Admin: 02/15/18 12:29 Dose: 4 units Methylprednisolone (Solu-Medrol) 40 mg IVP Q12H [facility] Last Admin: 02/15/18 09:55 Dose: 40 mg Ondansetron HCl (Zofran Inj) 4 mg IVP Q6 PRN PRN Reason: Nausea/Vomiting Last Admin: 02/08/18 13:50 Dose: 4 mg Pantoprazole Sodium (Protonix Ec Tab) 40 mg PO DAILY [facility] Last Admin: 02/15/18 09:55 Dose: 40 mg Roflumilast (Daliresp) 500 mcg PO DAILY [facility] Last Admin: 02/15/18 10:01 Dose: 500 mcg - Labs Labs: 02/13/18 06:51 02/13/18 06:51
--- NOTE | 2018-02-15 22:03 | PN ---
DATE: 02/15/2018 SUBJECTIVE: The patient is tolerating regular diet. He denies any chest pain. Shortness of breath has improved as well as sinus tachycardia. PHYSICAL EXAMINATION: VITAL SIGNS: Blood pressure 114/68, heart rate 106, temperature 98.5, respirations 22. HEENT: Pale conjunctiva. CHEST: Bilateral rhonchi. HEART: S1 and S2 regular. EXTREMITIES: No edema. Significant muscle wasting. ASSESSMENT: 1. Physiologic sinus tachycardia for the patient's underlying chronic obstructive lung disease. 2. Status post distal small bowel obstruction. 3. Colorectal cancer, status post resection and ileostomy. 4. Anemia. RECOMMENDATIONS: Continue Cardizem 60 mg 4 times daily, Lovenox 40 mg subcutaneous once a day, Solu-Medrol 40 mg intravenously every 12 hours. Discontinue telemetry. Mukesh Correia MD
--- NOTE | 2018-02-18 10:12 | DS ---
ADMISSION DIAGNOSIS: Abdominal pain. DISCHARGE DIAGNOSES: Small bowel obstruction with a history of colostomy, prior abdominal surgery, hypertension, anxiety disorder, generalized anxiety disorder, steroid-induced diabetes, chronic persistent respiratory failure. HISTORY OF PRESENT ILLNESS: This is a 67-year-old male with history of COPD; multiple complications; colon cancer, status post resection with a colostomy; status post attempt colostomy reversal with no success. The patient was in acute rehab facility. The patient was transferred back to [facility] with abdominal pain, abdominal distention. He has been able to pass flatus, and the patient had nausea and vomiting, generalized weakness, loose watery stool in the colostomy bag. No history of polyuria, polydipsia. No history of hematuria or pyuria. There is no history of There is no history of fall or loss of consciousness. No history of seizure like activity. There is no history of joint pain, hip pain. ALLERGIES: THE PATIENT IS ALLERGIC TO ACETAMINOPHEN, FISH, SHRIMP, IV DYE. SOCIAL HISTORY: Ex-smoker, non-EtOH user. CURRENT MEDICATIONS: In the computer. The patient antibiotics, NG tube suction, and GI and surgical evaluation, the patient did well. She has been treated, stabilized and discharged home with outpatient followup. Condition upon discharge is stable. Hal Garcia MD
== END 2018-02-15 19:21 | disposition home or self-care (01) | DRG 389 ==
LOC: C.ER 21:57 → C.6T 23:25
PROVIDERS: ADMIT Internal Medicine; ATTEND Internal Medicine
PROC: 5A09557 Assistance with Respiratory Ventilation, Greater than 96 Consecutive Hours, Continuous Positive Airway Pressure (ICD-10-PCS; principal; 2018-02-07)
DX: K56.699 Other intestinal obstruction unspecified as to partial versus complete obstruction (principal); I13.0 Hypertensive heart and chronic kidney disease with heart failure and stage 1 through stage 4 chronic kidney disease, or unspecified chronic kidney disease; J44.1 Chronic obstructive pulmonary disease with (acute) exacerbation; K61.2 Anorectal abscess; J96.10 Chronic respiratory failure, unspecified whether with hypoxia or hypercapnia; D64.9 Anemia, unspecified; D72.829 Elevated white blood cell count, unspecified; E11.22 Type 2 diabetes mellitus with diabetic chronic kidney disease; E86.0 Dehydration; E87.6 Hypokalemia; F41.1 Generalized anxiety disorder; G47.30 Sleep apnea, unspecified; I48.91 Unspecified atrial fibrillation; I50.9 Heart failure, unspecified; Z66 Do not resuscitate; N18.9 Chronic kidney disease, unspecified; Z79.4 Long term (current) use of insulin; Z85.048 Personal history of other malignant neoplasm of rectum, rectosigmoid junction, and anus; Z87.891 Personal history of nicotine dependence; Z93.2 Ileostomy status; E09.9 Drug or chemical induced diabetes mellitus without complications; E78.00 Pure hypercholesterolemia, unspecified; Z99.81 Dependence on supplemental oxygen

== ENCOUNTER 2018-02-19 11:54 | Inpatient (IN) | payer MEDICARE, BC ==
[2018-02-19 11:54] VITALS: BMI 24.2
[2018-02-19 13:02] LABS: BASO % 0.1 % (0.0-2.0); EOS # 0.2 K/uL (0.0-0.7); HEMOGLOBIN 11.3 g/dL (12.0-18.0); LYMPH # 2.7 K/uL (1.0-4.3); LYMPH % 15.3 % (20.0-40.0); MEAN CELL VOLUME 66.2 fL (80.0-94.0); MEAN CORPUSCULAR HEMOGLOBIN 20.7 pg (27.0-31.0); MEAN CORPUSCULAR HGB CONC 31.3 g/dL (33.0-37.0); MEAN PLATELET VOLUME 8.1 fL (7.2-11.7); MONO % 5.6 % (0.0-10.0); NEUT # 13.9 K/uL (1.8-7.0); RBC 5.46 Mil/uL (4.40-5.90); RED CELL DISTRIBUTION WIDTH 18.4 % (11.5-14.5)
[2018-02-19 13:04] LABS: SQUAMOUS EPITHIAL 1 /hpf (0-5); URINE BACTERIA RARE (<OCC); URINE BILIRUBIN NEGATIVE (NEGATIVE); URINE BLOOD NEGATIVE (NEGATIVE); URINE CALCIUM OXALATE CRYSTALS RARE /hpf (<OCC); URINE CLARITY Hazy (Clear); URINE COLOR Yellow (YELLOW); URINE GLUCOSE (UA) 1+ mg/dL (Normal); URINE LEUKOCYTE ESTERASE TRACE Leu/uL (Negative); URINE PROTEIN 1+ mg/dL (NEGATIVE); URINE UROBILINOGEN NORMAL mg/dL (0.2-1.0)
[2018-02-19 13:07] LABS: WHITE BLOOD COUNT 17.9 K/uL (4.8-10.8)
[2018-02-19 13:11] LABS: INR 1.1
--- NOTE | 2018-02-19 13:15 | C.PDOC ---
History Of Present Illness 67-year-old male, with PMH COPD, DM, colon CA with colostomy, presents to the emergency department with complaints of lower back pain that started four days ago. Pain is worse with movement. Patient states it radiates into his right leg , hindering him from walking. Notes he developed chest pain this morning, associated with palpitations. Patient notes he has the same chest pain every morning before he takes his "pill." (+) palpitations (+) cough. He denies fever , increased shortness of breath or current chest pain. Denies fever, n/v, syncope. Time Seen by Provider: 02/19/18 12:34 Chief Complaint (Nursing): Back Pain History Per: Patient History/Exam Limitations: no limitations Current Symptoms Are (Timing): Still Present Severity: Moderate Past Medical History Reviewed: Historical Data, Nursing Documentation, Vital Signs Vital Signs: Last Vital Signs Temp 97.7 F 02/23/18 08:00 Pulse 105 H 02/23/18 08:00 Resp 20 02/23/18 08:00 BP 115/62 02/23/18 08:00 Pulse Ox 96 02/23/18 21:28 - Medical History PMH: Anemia, Anxiety, Arthritis, Asthma, Bronchitis, Cardia Arrhythmia (SVT), CHF, COPD, Diabetes, Emphysema, HTN, Hypercholesterolemia, Kidney Stones, Pneumonia, Chronic Kidney Disease, Sleep Apnea (ON DALIRESP) Denies: Fractures, Gastritis Surgical History: Endoscopy - [facility] Procedures ASSISTANCE WITH RESPIRATORY VENTILATION, 24-96 HRS, CPAP (08/23/17) ASSISTANCE WITH RESPIRATORY VENTILATION, <24 HRS, CPAP (11/14/17) ASSISTANCE WITH RESPIRATORY VENTILATION, >96 HRS, CPAP (02/07/18) CONTINUOUS INVASIVE MECHANICAL VENTILATION <96 CONSEC HRS (11/29/14) DILATION OF RIGHT URETER WITH INTRALUMINAL DEVICE, ENDO (03/20/17) DRAINAGE OF BLADDER WITH DRAINAGE DEVICE, VIA OPENING (12/04/17) DRAINAGE OF RECTUM, PERCUTANEOUS APPROACH (12/04/17) EXCISION OF ILEUM, OPEN APPROACH (12/04/17) EXCISION OF SIGMOID COLON, ENDO, DIAGN (03/20/17) EXCISION OF STOMACH, ENDO, DIAGN (03/20/17) EXCISION OF TRANSVERSE COLON, ENDO, DIAGN (03/20/17) INFLUENZA VACCINATION (06/02/14) INSERT ENDOTRACHEAL TUBE (11/29/14) INSERTION OF INFUSION DEV INTO SUP VENA CAVA, PERC APPROACH (01/26/18) LARYGNOSCOPY AND OTH TRACHEOSCOPY (04/18/15) MEASURE OF CARDIAC SAMPL & PRESSURE, L HEART, PERC APPROACH (12/01/15) NON-INVASIVE MECHANICAL VENTILATION (04/18/15) RESECTION OF SIGMOID COLON, OPEN APPROACH (03/20/17) RESPIRATORY VENTILATION, GREATER THAN 96 CONSECUTIVE HOURS (03/20/17) Family History: States: No Known Family Hx - Social History Hx Tobacco Use: Yes (8 years ppd smoker. quit 1.5 years ago) Hx Alcohol Use: Yes Hx Substance Use: No - Immunization History Hx Tetanus Toxoid Vaccination: No Hx Influenza Vaccination: Yes Hx Pneumococcal Vaccination: Yes Review Of Systems Constitutional: Negative for: Fever, Chills Cardiovascular: Positive for: Chest Pain, Palpitations Respiratory: Positive for: Shortness of Breath Gastrointestinal: Negative for: Nausea, Vomiting Musculoskeletal: Negative for: Neck Pain, Back Pain Neurological: Negative for: Weakness, Numbness, Headache, Dizziness Physical Exam - Physical Exam Appears: Non-toxic, No Acute Distress Skin: Normal Color, Warm, Dry, No Rash Head: Atraumatic, Normacephalic Eye(s): bilateral: Normal Inspection, PERRL, EOMI Nose: Normal Oral Mucosa: Moist Lips: Normal Appearing Neck: Normal ROM, Supple Chest: Symmetrical Cardiovascular: Other (tachycardia) Respiratory: Normal Breath Sounds, No Accessory Muscle Use Gastrointestinal/Abdominal: Soft, Other ((+) colostomy with stoma in RLQ (+) mild erythema surrounding in right side (?secondary to dressing change)) Back: Normal Inspection Extremity: No Deformity, No Swelling Neurological/Psych: Oriented x3, Normal Speech Gait: Unable To Assess ED Course And Treatment - Laboratory Results Result Diagrams: 02/21/18 08:32 02/21/18 08:32 ECG: Interpreted By Me, Viewed By Me ECG Rhythm: Sinus Tachycardia Rate From EC O2 Sat by Pulse Oximetry: 96 - CT Scan/US CT ABD/PEL Other Rad Studies (CT/US): Read By Radiologist, Radiology Report Reviewed CT/US Interpretation: Accession No. : [id number]. Patient Name / ID : CANDI REAVES / [id number]. Exam Date : 02/19/2018 15:37:19 ( Approved ). Study Comment : Sex / Age : M / 67Y. Creator : Tiffany Dave. Dictator : Mark Strickland MD. Immigration Lawyer : Otolaryngologist : Mark Strickland MD. Approver2 : Report Date : 02/19/2018 15:49:22. My Comment : *. Date of service: 02/19/2018. PROCEDURE: CT Abdomen and Pelvis without intravenous contrast. HISTORY: right sided pain. COMPARISON: CT scan of the abdomen and pelvis dated 01/26/2018. TECHNIQUE: Contiguous images were obtained from the domes of the diaphragms to the upper thighs without the administration of intravenous contrast. Oral contrast was not administered. Radiation dose: Total exam DLP = 360.9 mGy-cm. This CT exam was performed using one or more of the following dose reduction techniques: Automated exposure control, adjustment of the mA and/or kV according to patient size, and/ or use of iterative reconstruction technique. FINDINGS: LOWER THORAX: Unremarkable. LIVER: 1.7 cm segment 2 cyst unchanged. No gross lesion or ductal dilatation. GALLBLADDER AND BILE DUCTS: Trace cholelithiasis without gallbladder wall thickening/ edema or pericholecystic fluid. PANCREAS: Unremarkable. No gross lesion or ductal dilatation. SPLEEN: Unremarkable. ADRENALS: Unremarkable. No mass. KIDNEYS AND URETERS: Punctate nonobstructive right interpolar calculus. No hydronephrosis. No solid mass. VASCULATURE: Unremarkable. No aortic aneurysm. BOWEL: Right lower quadrant diverting loop ileostomy. No obstruction. No gross mural thickening. APPENDIX: Unremarkable. Normal appendix. PERITONEUM: Unremarkable. No free fluid. No free air. LYMPH NODES: Unremarkable. No enlarged lymph nodes. BLADDER: Unremarkable. REPRODUCTIVE: Unremarkable. BONES: No acute fracture. OTHER FINDINGS: None. IMPRESSION: Right lower quadrant diverting loop ileostomy. No evidence of obstruction. Punctate nonobstructive right interpolar calculus. No obstructive uropathy or evidence of recently passed genitourinary calculus. Correlated are without CT evidence for acute cholecystitis. Normal appendix. Additional findings as above. CT SPINE Other Rad Studies (CT/US): Read By Radiologist, Radiology Report Reviewed CT/US Interpretation: Accession No. : [id number]. Patient Name / ID : CANDI REAVES / [id number]. Exam Date : 02/19/2018 15:32:05 ( Approved ). Study Comment : Sex / Age : M / 67Y. Creator : Tiffany Dave. Dictator : Stacey Delvalle. Immigration Lawyer : Otolaryngologist : Stacey Myers. Approver2 : Report Date : 02/19/2018 15:49:15. My Comment : . Date of service: 02/19/2018. PROCEDURE: CT Lumbar Spine without contrast. HISTORY: pain. COMPARISON: Lateral reconstruction from a CT abdomen and pelvis 01/26/2018 noted. TECHNIQUE: Axial computed tomography images were obtained of the lumbar spine without the use of intravenous contrast. Coronal and sagittal reformatted images were created and reviewed. Radiation dose: Total exam DLP = 523 mGy-cm. This CT exam was performed using one or more of the following dose reduction techniques: Automated exposure control, adjustment of the mA and/or kV according to patient size, and/or use of iterative reconstruction technique. FINDINGS: VERTEBRAE: The prominent can cavity to the L2 vertebral body with contiguous vacuum disc phenomena and subchondral sclerosis is noted on the prior 01/26/2018 reconstructed sagittal and coronal images a prior CT study. Prominent Schmorl's node indentation without similar compression deformity of the superior endplate compatible with this. Prominent Schmorl's node indentation is favored. No retropulsed ossific fragments into the canal suggested here. . No cortical fracture lines noted .. Normal alignment. Marginal osteophytes are present these are most pronounced on the right at L2-3 and on the left at L4-5. DISCS/SPINAL CANAL/NEURAL FORAMINA: L1-2: Unremarkable. L2-3: Schmorl's indentation-as above otherwise unremarkable. Diffuse disc bulging noted. L3-4: Diffuse disc bulging endplate ridging noted. No resultant spinal stenosis appreciated. Central canal lower limits of normal. L4-5: Endplate ridging most pronounced left antral laterally left laterally no spinal canal compartment compromise appreciated . L5-S1: Unremarkable. PARASPINAL SOFT TISSUES: Unremarkable. OTHER FINDINGS: Atherosclerotic vascular calcifications present. . IMPRESSION: Prominent Schmorl's node indentation superior endplate L2. -not significantly changed with the reformatted images from the CT abdomen and pelvis 01/26/2018. No cortical fracture lines. No retropulsed ossific fragments into the spinal canal. L2-3 and L3-4 diffuse disc bulges. No significant appearing spinal stenosis noted. Degenerative disc disease and lumbar thoracic spondylosis . Progress Note: Case discussed with Dr Arrington who evlauted work up and agreed upon plan and treatment. Case discussed with Dr Garcia, agrees upon admission. Disposition - Disposition Disposition: HOSPITALIZED Disposition Time: 17:00 Condition: STABLE - Clinical Impression Clinical Impression: Leukocytosis, Back pain, Chest pain - Scribe Statement The provider has reviewed the documentation as recorded by the Scribe (Mouna Huang) All medical record entries made by the Scribe were at my direction and personally dictated by me. I have reviewed the chart and agree that the record accurately reflects my personal performance of the history, physical exam, medical decision making, and the department course for this patient. I have also personally directed, reviewed, and agree with the discharge instructions and disposition.
[2018-02-19 13:22] LABS: B-TYPE NATRIURETIC PEPTIDE 71.3 pg/mL (0-900)
[2018-02-19 13:26] LABS: ALB/GLOB RATIO 1.6 (1.0-2.1); ALBUMIN 4.1 g/dL (3.5-5.0); ALT/SGPT 55 U/L (21-72); AST/SGOT 31 U/L (17-59); BLOOD UREA NITROGEN 13 mg/dL (9-20); CALCIUM 9.8 mg/dl (8.6-10.4); GFR AFRICAN-AMERICAN > 60; GFR NON-AFRICAN AMERICAN > 60
--- NOTE | 2018-02-19 13:29 | RAD ---
Date of service: 02/19/2018 PROCEDURE: CHEST RADIOGRAPH, 1 VIEW HISTORY: SOB COMPARISON: 02/07/2018 FINDINGS: LUNGS: Clear. PLEURA: No pneumothorax or pleural fluid seen. CARDIOVASCULAR: Normal. OSSEOUS STRUCTURES: Left superior and lateral rib deformities are suggested not appreciate such on prior studies. Bilateral shoulder arthrosis. Thoracic spondylosis. VISUALIZED UPPER ABDOMEN: Normal. OTHER FINDINGS: The prior tubing over the upper chest currently a prior NG tube is not noted now appreciated IMPRESSION: No acute cardiopulmonary pathology. Apparent left superolateral rib deformities -not clearly seen as such on recent prior studies. Correlate clinically.
[2018-02-19] MEDS ORDERED: Morphine 4 MG/ML VIAL ONE (14:05)
--- NOTE | 2018-02-19 16:02 | CT ---
Date of service: 02/19/2018 PROCEDURE: CT Abdomen and Pelvis without intravenous contrast HISTORY: right sided pain COMPARISON: CT scan of the abdomen and pelvis dated 01/26/2018. TECHNIQUE: Contiguous images were obtained from the domes of the diaphragms to the upper thighs without the administration of intravenous contrast. Oral contrast was not administered. Radiation dose: Total exam DLP = 360.9 mGy-cm. This CT exam was performed using one or more of the following dose reduction techniques: Automated exposure control, adjustment of the mA and/or kV according to patient size, and/or use of iterative reconstruction technique. FINDINGS: LOWER THORAX: Unremarkable. LIVER: 1.7 cm segment 2 cyst unchanged. No gross lesion or ductal dilatation. GALLBLADDER AND BILE DUCTS: Trace cholelithiasis without gallbladder wall thickening/ edema or pericholecystic fluid. PANCREAS: Unremarkable. No gross lesion or ductal dilatation. SPLEEN: Unremarkable. ADRENALS: Unremarkable. No mass. KIDNEYS AND URETERS: Punctate nonobstructive right interpolar calculus. No hydronephrosis. No solid mass. VASCULATURE: Unremarkable. No aortic aneurysm. BOWEL: Right lower quadrant diverting loop ileostomy. No obstruction. No gross mural thickening. APPENDIX: Unremarkable. Normal appendix. PERITONEUM: Unremarkable. No free fluid. No free air. LYMPH NODES: Unremarkable. No enlarged lymph nodes. BLADDER: Unremarkable. REPRODUCTIVE: Unremarkable. BONES: No acute fracture. OTHER FINDINGS: None. IMPRESSION: Right lower quadrant diverting loop ileostomy. No evidence of obstruction. Punctate nonobstructive right interpolar calculus. No obstructive uropathy or evidence of recently passed genitourinary calculus. Correlated are without CT evidence for acute cholecystitis. Normal appendix. Additional findings as above.
--- NOTE | 2018-02-19 16:33 | CT ---
Date of service: 02/19/2018 PROCEDURE: CT Lumbar Spine without contrast HISTORY: pain COMPARISON: Lateral reconstruction from a CT abdomen and pelvis 01/26/2018 noted TECHNIQUE: Axial computed tomography images were obtained of the lumbar spine without the use of intravenous contrast. Coronal and sagittal reformatted images were created and reviewed. Radiation dose: Total exam DLP = 523 mGy-cm. This CT exam was performed using one or more of the following dose reduction techniques: Automated exposure control, adjustment of the mA and/or kV according to patient size, and/or use of iterative reconstruction technique. FINDINGS: VERTEBRAE: The prominent can cavity to the L2 vertebral body with contiguous vacuum disc phenomena and subchondral sclerosis is noted on the prior 01/26/2018 reconstructed sagittal and coronal images a prior CT study. Prominent Schmorl's node indentation without similar compression deformity of the superior endplate compatible with this. Prominent Schmorl's node indentation is favored. No retropulsed ossific fragments into the canal suggested here. . No cortical fracture lines noted .. Normal alignment. Marginal osteophytes are present these are most pronounced on the right at L2-3 and on the left at L4-5. DISCS/SPINAL CANAL/NEURAL FORAMINA: L1-2: Unremarkable. L2-3: Schmorl's indentation-as above otherwise unremarkable. Diffuse disc bulging noted L3-4: Diffuse disc bulging endplate ridging noted. No resultant spinal stenosis appreciated. Central canal lower limits of normal L4-5: Endplate ridging most pronounced left antral laterally left laterally no spinal canal compartment compromise appreciated . L5-S1: Unremarkable. PARASPINAL SOFT TISSUES: Unremarkable. OTHER FINDINGS: Atherosclerotic vascular calcifications present. . IMPRESSION: Prominent Schmorl's node indentation superior endplate L2. -not significantly changed with the reformatted images from the CT abdomen and pelvis 01/26/2018. No cortical fracture lines. No retropulsed ossific fragments into the spinal canal. L2-3 and L3-4 diffuse disc bulges. No significant appearing spinal stenosis noted Degenerative disc disease and lumbar thoracic spondylosis .
[2018-02-19] MEDS ORDERED: MethylPREDNISolone 40 mg Vial IVP STA (20:46)
[2018-02-19] MEDS: Lactobacillus Acidophilus 500 MU Cap PO SCH (21:23)
[2018-02-19] MEDS: (Novolin R) Insulin Human Regular 100 units/ml vial SC SCH (21:34)
[2018-02-19] MEDS: metroNIDAZOLE IV 500 mg/100 ml 500 MG/100 ML BAG IVPB SCH (21:50)
[2018-02-20] MEDS ORDERED: Albuterol HFA 90 mcg/actuation (8 g) IH SCH
--- NOTE | 2018-02-20 | CP.PCM.HP ---
History of Present Illness - History of Present Illness History of Present Illness: CC: weakness, low back pain, right hip pain HPI: This is an elderly male well know to me with history of advance COPD, steroid induced, diabetes, allergic rhinitis,post herpetic neuralgia, h/o colon v\cancer stage 1 sp resection colostomy residual after attempted failed reversal came in with c/o right hipa pain, back pain, weakness associated with cough, congestion, nasal congestion and rhinorhea, he has occasional shortnes of breath, frequency of urination, he is anxious and gets depressed at times, pt is complaint with diet, medication denies nay chest pain, fall, seizure like activity. Present on Admission - Present on Admission Any Indicators Present on Admission: Yes Review of Systems - Review of Systems Systems not reviewed;Unavailable: Acuity of Condition - Constitutional Constitutional: Fatigue, Lethargy, Malaise - EENT Eyes: Itchy Eyes Ears: absent: As Per HPI, Decreased Hearing, Ear Discharge, Ear Pain, Tinnitus, Abnormal Hearing, Disequilibrium, Dizziness, Other Nose/Mouth/Throat: Nasal Congestion, Nasal Discharge, Post Nasal Drip, Dry Mouth - Cardiovascular Cardiovascular: Dyspnea, Lightheadedness, Palpitations. absent: As Per HPI, Acrocyanosis, Chest Pain, Chest Pain at Rest, Chest Pain with Activity, Claudication, Diaphoresis, Dyspnea on Exertion, Edema, Irregular Heart Rhythm, Pain Radiating to Arm/Neck/Jaw, Leg Edema, Leg Ulcers, Orthopnea, Paroxysmal Nocturnal Dyspnea, Pedal Edema, Radiating Pain, Rapid Heart Rate, Slow Heart Rate, Syncope, Other - Respiratory Respiratory: Cough, Dyspnea, Dyspnea on Exertion, Chest Congestion - Gastrointestinal Gastrointestinal: absent: As Per HPI, Abdominal Pain, Belching, Bloating, Change in Bowel Habits, Change in Stool Character, Coffee Ground Emesis, Constipation, Cramping, Diarrhea, Dyspepsia, Dysphagia, Early Satiety, Excessive Flatus, Fecal Incontinence, Heartburn, Hematemesis, Hematochezia, Loose Stools, Melena, Nausea, Odynophagia, Temesmus, Vomiting, Other - Genitourinary Genitourinary: Urinary Frequency - Musculoskeletal Musculoskeletal: Muscle Weakness, Myalgias, Numbness, Stiffness, Tingling - Integumentary Integumentary: absent: As Per HPI, Acne, Alopecia, Bleeding Lesions, Change in Hair, Change in Nails, Change in Pigmentation, Changing Lesions, Dry Skin, Erythema, Furuncle, Hirsutism, Lesions, New Lesions, Non-Healing Lesions, Photosensitivity, Pruritus, Rash, Skin Pain, Skin Ulcer, Sores, Striae, Swelling , Unusual Bruising, Wounds, Jaundice, Other - Neurological Neurological: absent: As Per HPI, Abnormal Gait, Abnormal Hearing, Abnormal Movements, Abnormal Speech, Behavioral Changes, Burning Sensations, Confusion, Convulsions, Disequilibrium, Dizziness, Numbness, Focal Weakness, Frequent Falls , Headaches, Lack of Coordination, Loss of Vision, Memory Loss, Paresthesias, Radicular Pain, Restless Legs, Sensory Deficit, Syncope, Tingling, Tremor, Vertigo, Weakness, Other Visual Disturbances, Other - Psychiatric Psychiatric: Anxiety Past Patient History - Infectious Disease Hx of Infectious Diseases: None - Past Medical History & Family History Past Medical History?: Yes - Past Social History Smoking Status: Former Smoker - CARDIAC Hx Cardiac Disorders: Yes Hx Cardia Arrhythmia: Yes (SVT) Hx Congestive Heart Failure: Yes Hx Hypercholesterolemia: Yes Hx Hypertension: Yes - PULMONARY Hx Asthma: Yes Hx Bronchitis: Yes Hx Chronic Obstructive Pulmonary Disease (COPD): Yes Hx Emphysema: Yes Hx Pneumonia: Yes Hx Sleep Apnea: Yes (ON DALIRESP) - NEUROLOGICAL Hx Neurological Disorder: No HX Cerebrovascular Accident: No - HEENT Hx HEENT Problems: Yes Hx Cataracts: Yes Hx Deafness: No Hx Difficulty Chewing: No Hx Epistaxis: No Hx Glaucoma: No Hx Macular Degeneration: No Other/Comment: wears eyeglasses for distance - RENAL Hx Chronic Kidney Disease: Yes Hx Kidney Stones: Yes - ENDOCRINE/METABOLIC Hx Endocrine Disorders: Yes Hx Diabetes Mellitus Type 2: Yes - HEMATOLOGICAL/ONCOLOGICAL Hx Anemia: Yes - INTEGUMENTARY Other/Comment: Scattered ecchymosis on both arms. - MUSCULOSKELETAL/RHEUMATOLOGICAL Hx Arthritis: Yes Hx Falls: Yes Hx Fractures: No - GASTROINTESTINAL Hx Gastritis: No - PSYCHIATRIC Hx Anxiety: Yes Hx Substance Use: No - SURGICAL HISTORY Hx Surgeries: Yes Hx Cataract Extraction: Yes (left eye, right eye) Hx Cardiac Catheterization: Yes (11/2015) Hx Eye Surgery: Yes Hx Pulmonary Surgery: Yes Other/Comment: colon resection with right ileostomy - ANESTHESIA Hx Anesthesia: Yes Hx Anesthesia Reactions: No Hx Malignant Hyperthermia: No Has any member of the family had a problem w/ anesthesia?: No Meds Allergies/Adverse Reactions: Allergies Allergy/AdvReac Type Severity Reaction Status Date / Time acetaminophen [From Tylenol] Allergy RASH Verified 02/19/18 12:12 FISH Allergy SWELLING Verified 02/19/18 12:12 shrimp Allergy SHORTNESS Verified 02/19/18 12:12 OF BREATH IV dye Allergy Severe ANAPHYLAXIS Uncoded 02/19/18 12:12 Physical Exam - Constitutional Appears: No Acute Distress - Head Exam Head Exam: ATRAUMATIC, NORMAL INSPECTION, NORMOCEPHALIC - Eye Exam Eye Exam: EOMI, Normal appearance, PERRL Pupil Exam: NORMAL ACCOMODATION, PERRL - Respiratory Exam Respiratory Exam: Decreased Breath Sounds, Rales, Rhonchi, Wheezes - Cardiovascular Exam Cardiovascular Exam: REGULAR RHYTHM - GI/Abdominal Exam GI & Abdominal Exam: Normal Bowel Sounds, Soft. absent: Tenderness Additional comments: colostomy with dark black fluid in bag - Rectal Exam Rectal Exam: Deferred - Back Exam Back exam: muscle spasm, paraspinal tenderness - Neurological Exam Neurological exam: Alert, CN II-XII Intact, Normal Gait, Oriented x3, Reflexes Normal - Psychiatric Exam Psychiatric exam: Anxious, Depressed - Skin Skin Exam: Dry, Intact, Normal Color, Warm Results - Vital Signs Recent Vital Signs: Last Vital Signs Temp 98.4 F 02/19/18 18:59 Pulse 127 H 02/19/18 22:35 Resp 21 02/19/18 18:59 BP 126/80 02/19/18 18:59 Pulse Ox 95 02/19/18 18:59 - Labs Result Diagrams: 02/19/18 12:52 02/19/18 12:52 Labs: Laboratory Results - last 24 hr 02/19/18 02/19/18 02/19/18 12:52 12:52 12:52 WBC 17.9 H D RBC 5.46 Hgb 11.3 L Hct 36.1 MCV 66.2 L MCH 20.7 L MCHC 31.3 L RDW 18.4 H Plt Count 306 MPV 8.1 Neut % (Auto) 78.0 H Lymph % (Auto) 15.3 L Wolfe % (Auto) 5.6 Eos % (Auto) 1.0 Baso % (Auto) 0.1 Neut # (Auto) 13.9 H Lymph # (Auto) 2.7 Wolfe # (Auto) 1.0 H Eos # (Auto) 0.2 Baso # (Auto) 0.0 Differential Comment PT 12.0 INR 1.1 APTT 26 Sodium 136 Potassium 3.9 Chloride 98 Carbon Dioxide 26 Anion Gap 16 BUN 13 Creatinine 0.5 L Est GFR ( Amer) > 60 Est GFR (Non-Af Amer) > 60 POC Glucose (mg/dL) Random Glucose 162 H Calcium 9.8 Total Bilirubin 0.5 AST 31 ALT 55 Alkaline Phosphatase 150 H D Total Creatine Kinase < 20 L CK-MB (Mass) 0.80 Troponin I < 0.0120 NT-Pro-B Natriuret Pep 71.3 Total Protein 6.6 Albumin 4.1 Globulin 2.5 Albumin/Globulin Ratio 1.6 Urine Color Urine Clarity Urine pH Ur Specific [place] Urine Protein Urine Glucose (UA) Urine Ketones Urine Blood Urine Nitrate Urine Bilirubin Urine Urobilinogen Ur Leukocyte Esterase Urine WBC (Auto) Urine RBC (Auto) Ur Squamous Epith Cells Calcium Oxalate Crystal Urine Bacteria 02/19/18 02/19/18 12:55 21:21 WBC RBC Hgb Hct MCV MCH MCHC RDW Plt Count MPV Neut % (Auto) Lymph % (Auto) Wolfe % (Auto) Eos % (Auto) Baso % (Auto) Neut # (Auto) Lymph # (Auto) Wolfe # (Auto) Eos # (Auto) Baso # (Auto) Differential Comment PT INR APTT Sodium Potassium Chloride Carbon Dioxide Anion Gap BUN Creatinine Est GFR ( Amer) Est GFR (Non-Af Amer) POC Glucose (mg/dL) 158 H Random Glucose Calcium Total Bilirubin AST ALT Alkaline Phosphatase Total Creatine Kinase CK-MB (Mass) Troponin I NT-Pro-B Natriuret Pep Total Protein Albumin Globulin Albumin/Globulin Ratio Urine Color Yellow Urine Clarity Hazy Urine pH 5.0 Ur Specific [place] 1.024 Urine Protein 1+ H Urine Glucose (UA) 1+ H Urine Ketones Negative Urine Blood Negative Urine Nitrate Negative Urine Bilirubin Negative Urine Urobilinogen Normal Ur Leukocyte Esterase Trace Urine WBC (Auto) 4 Urine RBC (Auto) 2 Ur Squamous Epith Cells 1 Calcium Oxalate Crystal Rare Urine Bacteria Rare Assessment & Plan (1) Low back pain Assessment and Plan: rule out lumbar radiculopathy Plan: pain medictaion'rejhab, PT if needed MRI of back Status: Acute (2) COPD (chronic obstructive pulmonary disease) Status: Acute (3) Allergic rhinitis Status: Chronic Priority: Medium (4) PUNEET (generalized anxiety disorder) Status: Chronic (5) Steroid-induced diabetes Status: Chronic
[2018-02-20 00:07] VITALS: RESP 20
[2018-02-20] MEDS: Albuterol HFA 90 mcg/actuation (8 g) IH SCH ×4 (01:30→19:55)
[2018-02-20] MEDS: metroNIDAZOLE IV 500 mg/100 ml 500 MG/100 ML BAG IVPB SCH ×3 (05:39→21:46)
[2018-02-20] MEDS: Fluticasone-Salmeterol 250-50mcg Diskus INH SCH ×2 (07:55→19:55)
[2018-02-20] MEDS: Budesonide 0.5 mg/2 ml Inhal Susp UD INH SCH ×2 (07:55→19:55)
[2018-02-20] MEDS: Lactobacillus Acidophilus 500 MU Cap PO SCH ×2 (09:22→17:57)
[2018-02-20] MEDS: Multiple Vitamins Tab PO SCH (09:22)
[2018-02-20] MEDS: Enoxaparin 40 mg Syringe SC SCH (09:22)
[2018-02-20] MEDS: (Novolin R) Insulin Human Regular 100 units/ml vial SC SCH ×4 (09:23→21:44)
--- NOTE | 2018-02-20 17:25 | CP.PCM.PN ---
Subjective - Date & Time of Evaluation Date of Evaluation: 02/20/18 Time of Evaluation: 11:00 - Subjective Subjective: weakness, low back pain, right hip pain HPI: Patient seen this morning and examined at the bedside. Patient reports to have no problems with breathing. Patient denies any chest pain or shortness of breath. Patient is afebrile. Patient is using BiPAP machine at night and reports improvement in his breathing. ROS: Constitutional: Patient denies fever and chills. Cardiovascular: Patient denies chest pain and palpitations. Respiratory: Patient denies shortness of breath and cough. Gastrointestinal: Patient denies nausea, vomiting, diarrhea. Physical Exam HEENT: Atraumatic, normocephalic, mucuous membranes moist, EOMI Respiratory: Clear to auscultation bilaterally. No wheezing, rhonchi, or rales present. Cardiovascular: +S1/ S2, regular rate and rhythm GI: Soft normal bowel sounds, no tenderness, no distention Extremities: No LE edema Neurological: Alert, awake, oriented X3 Assessment: 67 year old male patient past medical history of ileostomy for bowel obstruction , COPD, anxiety, anemia; patient found to have stable COPD 1. COPD Status: Chronic - Continue BiPAP treatments -Albuterol 2 puff IH Q6 -Budesonide - 0.5 mg PO RQ12 -Roflumilast - 500 mcg PO daily 2. Diabetes Status: Chronic - Insulin Aspart - 2 units SC 3. Anxiety Status: chronic - Alprazolam 0.5 mg PO Q 12 Objective - Vital Signs/Intake and Output Vital Signs (last 24 hours): Temp Pulse Resp BP Pulse Ox 97.6 F 106 H 20 114/74 97 02/20/18 07:00 02/20/18 07:55 02/20/18 07:00 02/20/18 07:00 02/20/18 07:00 Intake and Output: 02/20/18 02/20/18 06:59 18:59 Intake Total 1400 1000 Output Total 900 Balance 500 1000 - Medications Medications: Current Medications Albuterol (Ventolin Hfa 90 Mcg/Actuation (8 G)) 2 puff IH Q6 [facility] Last Admin: 02/20/18 14:02 Dose: 2 puff Alprazolam (Xanax) 0.5 mg PO Q12 [facility] Stop: 02/26/18 22:01 Last Admin: 02/20/18 09:22 Dose: 0.5 mg Budesonide (Pulmicort Respules) 0.5 mg INH RQ12 [facility] Last Admin: 02/20/18 07:55 Dose: 0.5 mg Diltiazem HCl (Cardizem) 60 mg PO QID [facility] Last Admin: 02/20/18 13:53 Dose: 60 mg Enoxaparin Sodium (Lovenox) 40 mg SC DAILY [facility] Last Admin: 02/20/18 09:22 Dose: 40 mg Doxycycline Hyclate 100 mg/ (Sodium Chloride) 100 mls @ 100 mls/hr IVPB Q12H [facility] PRN Reason: Protocol Last Admin: 02/20/18 08:30 Dose: 100 mls/hr Metronidazole (Flagyl) 500 mg in 100 mls @ 100 mls/hr IVPB Q8 [facility] PRN Reason: Protocol Last Admin: 02/20/18 13:52 Dose: 100 mls/hr Insulin Human Regular (Novolin R) 0 unit SC ACHS [facility] PRN Reason: Protocol Last Admin: 02/20/18 12:06 Dose: 4 units Lactobacillus Acidophilus (Bacid Acidophilus) 1 cap PO BID [facility] Last Admin: 02/20/18 09:22 Dose: 1 cap Metformin HCl (Glucophage) 500 mg PO BIDCC [facility] Last Admin: 02/20/18 09:00 Dose: 500 mg Multivitamins (Hexavitamin) 1 tab PO DAILY [facility] Last Admin: 02/20/18 09:22 Dose: 1 tab Prednisone (Prednisone Tab) 5 mg PO DAILY [facility] Last Admin: 02/20/18 09:22 Dose: 5 mg Roflumilast (Daliresp) 500 mcg PO DAILY [facility] Last Admin: 02/20/18 09:22 Dose: 500 mcg Fluticasone/Salmeterol (Advair Diskus 250/50) 1 puff INH RBID [facility] Last Admin: 02/20/18 07:55 Dose: Not Given Tramadol HCl (Ultram) 50 mg PO Q8 [facility] Last Admin: 02/20/18 13:52 Dose: 50 mg - Labs Labs: 02/19/18 12:52 02/19/18 12:52 PT 12.0 SECONDS (9.7-12.2) 02/19/18 12:52 INR 1.1 02/19/18 12:52 APTT 26 SECONDS (21-34) 02/19/18 12:52
--- NOTE | 2018-02-20 22:26 | CP.PCM.PN ---
Subjective - Date & Time of Evaluation Date of Evaluation: 02/20/18 Time of Evaluation: 18:00 - Subjective Subjective: Pt seen and examined at bedside, Objective - Vital Signs/Intake and Output Vital Signs (last 24 hours): Temp Pulse Resp BP Pulse Ox 98.4 F 120 H 20 106/68 98 02/20/18 16:00 02/20/18 18:00 02/20/18 16:00 02/20/18 16:00 02/20/18 16:00 Intake and Output: 02/20/18 02/21/18 18:59 06:59 Intake Total 1000 Balance 1000 - Medications Medications: Current Medications Albuterol (Ventolin Hfa 90 Mcg/Actuation (8 G)) 2 puff IH Q6 [facility] Last Admin: 02/20/18 19:55 Dose: 2 puff Alprazolam (Xanax) 0.5 mg PO Q12 [facility] Stop: 02/26/18 22:01 Last Admin: 02/20/18 21:47 Dose: 0.5 mg Budesonide (Pulmicort Respules) 0.5 mg INH RQ12 [facility] Last Admin: 02/20/18 19:55 Dose: 0.5 mg Diltiazem HCl (Cardizem) 60 mg PO QID [facility] Last Admin: 02/20/18 21:47 Dose: 60 mg Enoxaparin Sodium (Lovenox) 40 mg SC DAILY [facility] Last Admin: 02/20/18 09:22 Dose: 40 mg Doxycycline Hyclate 100 mg/ (Sodium Chloride) 100 mls @ 100 mls/hr IVPB Q12H [facility] PRN Reason: Protocol Last Admin: 02/20/18 18:42 Dose: 100 mls/hr Metronidazole (Flagyl) 500 mg in 100 mls @ 100 mls/hr IVPB Q8 [facility] PRN Reason: Protocol Last Admin: 02/20/18 21:46 Dose: 100 mls/hr Insulin Human Regular (Novolin R) 0 unit SC ACHS [facility] PRN Reason: Protocol Last Admin: 02/20/18 21:44 Dose: Not Given Lactobacillus Acidophilus (Bacid Acidophilus) 1 cap PO BID [facility] Last Admin: 02/20/18 17:57 Dose: 1 cap Metformin HCl (Glucophage) 500 mg PO BIDCC [facility] Last Admin: 02/20/18 17:57 Dose: 500 mg Multivitamins (Hexavitamin) 1 tab PO DAILY [facility] Last Admin: 02/20/18 09:22 Dose: 1 tab Prednisone (Prednisone Tab) 5 mg PO DAILY [facility] Last Admin: 02/20/18 09:22 Dose: 5 mg Roflumilast (Daliresp) 500 mcg PO DAILY [facility] Last Admin: 02/20/18 09:22 Dose: 500 mcg Fluticasone/Salmeterol (Advair Diskus 250/50) 1 puff INH RBID [facility] Last Admin: 02/20/18 19:55 Dose: Not Given Tramadol HCl (Ultram) 50 mg PO Q8 [facility] Last Admin: 02/20/18 21:47 Dose: 50 mg - Labs Labs: 02/19/18 12:52 02/19/18 12:52 PT 12.0 SECONDS (9.7-12.2) 02/19/18 12:52 INR 1.1 02/19/18 12:52 APTT 26 SECONDS (21-34) 02/19/18 12:52 Assessment and Plan (1) Low back pain Status: Acute (2) COPD (chronic obstructive pulmonary disease) Status: Acute (3) Allergic rhinitis Status: Chronic (4) PUNEET (generalized anxiety disorder) Status: Chronic (5) Steroid-induced diabetes Status: Chronic
[2018-02-21] MEDS: Albuterol HFA 90 mcg/actuation (8 g) IH SCH ×4 (02:08→17:49)
[2018-02-21] MEDS: metroNIDAZOLE IV 500 mg/100 ml 500 MG/100 ML BAG IVPB SCH ×3 (05:44→21:20)
[2018-02-21] MEDS: (Novolin R) Insulin Human Regular 100 units/ml vial SC SCH ×4 (06:40→23:09)
[2018-02-21] MEDS: Budesonide 0.5 mg/2 ml Inhal Susp UD INH SCH ×2 (07:44→19:36)
[2018-02-21] MEDS: Fluticasone-Salmeterol 250-50mcg Diskus INH SCH ×2 (07:44→19:36)
[2018-02-21 08:57] LABS: BASO % 0.2 % (0.0-2.0); EOS # 0.1 K/uL (0.0-0.7); EOS % 0.9 % (0.0-4.0); HEMOGLOBIN 9.8 g/dL (12.0-18.0); LYMPH # 2.2 K/uL (1.0-4.3); LYMPH % 19.1 % (20.0-40.0); MEAN CELL VOLUME 66.6 fL (80.0-94.0); MEAN CORPUSCULAR HEMOGLOBIN 21.5 pg (27.0-31.0); MEAN CORPUSCULAR HGB CONC 32.4 g/dL (33.0-37.0); MEAN PLATELET VOLUME 8.1 fL (7.2-11.7); MONO # 0.7 K/uL (0.0-0.8); MONO % 6.1 % (0.0-10.0); NEUT # 8.6 K/uL (1.8-7.0); NEUT % 73.7 % (50.0-75.0); RBC 4.53 Mil/uL (4.40-5.90); RED CELL DISTRIBUTION WIDTH 18.3 % (11.5-14.5); WHITE BLOOD COUNT 11.6 K/uL (4.8-10.8)
[2018-02-21 09:11] LABS: BLOOD UREA NITROGEN 8 mg/dL (9-20); CALCIUM 8.9 mg/dl (8.6-10.4); GFR AFRICAN-AMERICAN > 60; GFR NON-AFRICAN AMERICAN > 60
[2018-02-21] MEDS: Multiple Vitamins Tab PO SCH (09:44)
[2018-02-21] MEDS: Enoxaparin 40 mg Syringe SC SCH (09:45)
[2018-02-21] MEDS: Lactobacillus Acidophilus 500 MU Cap PO SCH ×2 (09:45→17:48)
--- NOTE | 2018-02-21 12:24 | CARD ---
APPROVED REPORT Date of service: 02/19/2018 EKG Measurement Heart [id number] NV 122P [id number] <Conclusion> Sinus tachycardia with premature supraventricular complexes Rightward axis Borderline ECG
--- NOTE | 2018-02-21 17:37 | CP.PCM.PN ---
Subjective - Date & Time of Evaluation Date of Evaluation: 02/21/18 Time of Evaluation: 10:20 - Subjective Subjective: Patient seen and examined at the bedside this morning. Patient reports to have no problems with breathing. Patient denies any chest pain or shortness of breath. Patient is afebrile. Patient is using BiPAP machine at night and reports improvement in his breathing. Patient's CT of the lumbar spine showed L2 -L3 and L3-L4 diffuse disc bulges. Degenerative disc disease and lumbar thoracic spondylosis. Patient has no acute complaints. ROS: Constitutional: Patient denies fever and chills. Cardiovascular: Patient denies chest pain and palpitations. Respiratory: Patient denies shortness of breath and cough. Gastrointestinal: Patient denies nausea, vomiting, diarrhea. Physical Exam HEENT: Atraumatic, normocephalic, mucuous membranes moist, EOMI Respiratory: Clear to auscultation bilaterally. No wheezing, rhonchi, or rales present. Cardiovascular: +S1/ S2, regular rate and rhythm GI: Soft normal bowel sounds, no tenderness, no distention Extremities: No LE edema Neurological: Alert, awake, oriented X3 Assessment: 67 year old male patient past medical history of ileostomy for bowel obstruction , COPD, anxiety, anemia; patient found to have stable COPD 1. Low back pain Status: Acute - Tramadol Hcl 50 mg PO Q8 - Physical therapy 2.Urinary tract infection Status: Acute - Doxycycline Hyclate 100 mg in Sodium chloride 100mls @mls/hr IVPB Q12H 3. COPD Status: Chronic - Continue BiPAP treatments -Albuterol 2 puff IH Q6 -Budesonide - 0.5 mg PO RQ12 -Roflumilast - 500 mcg PO daily 4. Diabetes Status: Chronic - Insulin Aspart - 2 units SC 5. Anxiety Status: chronic - Alprazolam 0.5 mg PO Q 12 Objective - Vital Signs/Intake and Output Vital Signs (last 24 hours): Temp Pulse Resp BP Pulse Ox 98.5 F 122 H 20 96/60 L 97 02/21/18 16:03 02/21/18 16:11 02/21/18 16:03 02/21/18 16:03 02/21/18 16:03 Intake and Output: 02/21/18 02/21/18 06:59 18:59 Intake Total 1000 Balance 1000 - Medications Medications: Current Medications Albuterol (Ventolin Hfa 90 Mcg/Actuation (8 G)) 2 puff IH Q6 [facility] Last Admin: 02/21/18 14:01 Dose: 2 puff Alprazolam (Xanax) 0.5 mg PO Q12 [facility] Stop: 02/26/18 22:01 Last Admin: 02/21/18 09:44 Dose: 0.5 mg Budesonide (Pulmicort Respules) 0.5 mg INH RQ12 [facility] Last Admin: 02/21/18 07:44 Dose: 0.5 mg Diltiazem HCl (Cardizem) 60 mg PO QID [facility] Last Admin: 02/21/18 14:17 Dose: 60 mg Enoxaparin Sodium (Lovenox) 40 mg SC DAILY [facility] Last Admin: 02/21/18 09:45 Dose: 40 mg Doxycycline Hyclate 100 mg/ (Sodium Chloride) 100 mls @ 100 mls/hr IVPB Q12H [facility] PRN Reason: Protocol Last Admin: 02/21/18 08:00 Dose: 100 mls/hr Metronidazole (Flagyl) 500 mg in 100 mls @ 100 mls/hr IVPB Q8 [facility] PRN Reason: Protocol Last Admin: 02/21/18 14:17 Dose: 100 mls/hr Insulin Human Regular (Novolin R) 0 unit SC ACHS [facility] PRN Reason: Protocol Last Admin: 02/21/18 12:24 Dose: 3 units Lactobacillus Acidophilus (Bacid Acidophilus) 1 cap PO BID [facility] Last Admin: 02/21/18 09:45 Dose: 1 cap [facility] Last Admin: 02/21/18 09:00 Dose: 500 mg Multivitamins (Hexavitamin) 1 tab PO DAILY [facility] Last Admin: 02/21/18 09:44 Dose: 1 tab Prednisone (Prednisone Tab) 5 mg PO DAILY [facility] Last Admin: 02/21/18 09:44 Dose: 5 mg Roflumilast (Daliresp) 500 mcg PO DAILY [facility] Last Admin: 02/21/18 09:44 Dose: 500 mcg Fluticasone/Salmeterol (Advair Diskus 250/50) 1 puff INH RBID [facility] Last Admin: 02/21/18 07:44 Dose: Not Given Tramadol HCl (Ultram) 50 mg PO Q8 [facility] Last Admin: 02/21/18 14:17 Dose: 50 mg - Labs Labs: 02/21/18 08:32 02/21/18 08:32 PT 12.0 SECONDS (9.7-12.2) 02/19/18 12:52 INR 1.1 02/19/18 12:52 APTT 26 SECONDS (21-34) 02/19/18 12:52
[2018-02-22 00:29] LABS: SQUAMOUS EPITHIAL 1 /hpf (0-5); URINE BILIRUBIN NEGATIVE (NEGATIVE); URINE BLOOD NEGATIVE (NEGATIVE); URINE CLARITY Clear (Clear); URINE COLOR Yellow (YELLOW); URINE GLUCOSE (UA) NORMAL (Normal); URINE LEUKOCYTE ESTERASE 1+ Leu/uL (Negative); URINE PROTEIN NEGATIVE (NEGATIVE); URINE UROBILINOGEN NORMAL mg/dL (0.2-1.0)
[2018-02-22] MEDS: Albuterol HFA 90 mcg/actuation (8 g) IH SCH ×4 (03:08→20:03)
[2018-02-22] MEDS: metroNIDAZOLE IV 500 mg/100 ml 500 MG/100 ML BAG IVPB SCH ×2 (05:16→13:34)
--- NOTE | 2018-02-22 07:23 | CP.PCM.PN ---
Subjective - Date & Time of Evaluation Date of Evaluation: 02/21/18 Time of Evaluation: 18:00 - Subjective Subjective: Pt is seen and examined, Objective - Vital Signs/Intake and Output Vital Signs (last 24 hours): Temp Pulse Resp BP Pulse Ox 98.3 F 82 20 114/68 98 02/22/18 00:25 02/22/18 05:53 02/22/18 00:25 02/22/18 00:25 02/22/18 00:25 Intake and Output: 02/22/18 02/22/18 06:59 18:59 Intake Total 500 Balance 500 - Medications Medications: Current Medications Albuterol (Ventolin Hfa 90 Mcg/Actuation (8 G)) 2 puff IH Q6 [facility] Last Admin: 02/22/18 03:08 Dose: Not Given Alprazolam (Xanax) 0.5 mg PO Q12 [facility] Stop: 02/26/18 22:01 Last Admin: 02/21/18 21:19 Dose: 0.5 mg Budesonide (Pulmicort Respules) 0.5 mg INH RQ12 [facility] Last Admin: 02/21/18 19:36 Dose: 0.5 mg Diltiazem HCl (Cardizem) 60 mg PO QID [facility] Last Admin: 02/21/18 21:19 Dose: 60 mg Enoxaparin Sodium (Lovenox) 40 mg SC DAILY [facility] Last Admin: 02/21/18 09:45 Dose: 40 mg Doxycycline Hyclate 100 mg/ (Sodium Chloride) 100 mls @ 100 mls/hr IVPB Q12H [facility] PRN Reason: Protocol Last Admin: 02/21/18 18:30 Dose: 100 mls/hr Metronidazole (Flagyl) 500 mg in 100 mls @ 100 mls/hr IVPB Q8 [facility] PRN Reason: Protocol Last Admin: 02/22/18 05:16 Dose: 100 mls/hr Insulin Human Regular (Novolin R) 0 unit SC ACHS [facility] PRN Reason: Protocol Last Admin: 02/21/18 23:09 Dose: Not Given Lactobacillus Acidophilus (Bacid Acidophilus) 1 cap PO BID [facility] Last Admin: 02/21/18 17:48 Dose: 1 cap Metformin HCl (Glucophage) 500 mg PO BIDCC [facility] Last Admin: 02/21/18 17:48 Dose: 500 mg Morphine Sulfate (Morphine) 2 mg SC Q4 PRN PRN Reason: Pain, moderate (4-7) Last Admin: 02/22/18 01:42 Dose: 2 mg Multivitamins (Hexavitamin) 1 tab PO DAILY [facility] Last Admin: 02/21/18 09:44 Dose: 1 tab Prednisone (Prednisone Tab) 5 mg PO DAILY [facility] Last Admin: 02/21/18 09:44 Dose: 5 mg Roflumilast (Daliresp) 500 mcg PO DAILY [facility] Last Admin: 02/21/18 09:44 Dose: 500 mcg Fluticasone/Salmeterol (Advair Diskus 250/50) 1 puff INH RBID [facility] Last Admin: 02/21/18 19:36 Dose: Not Given Tramadol HCl (Ultram) 50 mg PO Q8 [facility] Last Admin: 02/22/18 05:16 Dose: 50 mg - Labs Labs: 02/21/18 08:32 02/21/18 08:32 PT 12.0 SECONDS (9.7-12.2) 02/19/18 12:52 INR 1.1 02/19/18 12:52 APTT 26 SECONDS (21-34) 02/19/18 12:52 Assessment and Plan (1) Low back pain Status: Acute (2) COPD (chronic obstructive pulmonary disease) Status: Acute (3) Allergic rhinitis Status: Chronic (4) PUNEET (generalized anxiety disorder) Status: Chronic (5) Steroid-induced diabetes Status: Chronic
[2018-02-22] MEDS: Budesonide 0.5 mg/2 ml Inhal Susp UD INH SCH ×2 (07:36→20:02)
[2018-02-22] MEDS: Fluticasone-Salmeterol 250-50mcg Diskus INH SCH ×2 (07:40→20:03)
[2018-02-22] MEDS: (Novolin R) Insulin Human Regular 100 units/ml vial SC SCH ×4 (08:20→21:08)
[2018-02-22] MEDS: Lactobacillus Acidophilus 500 MU Cap PO SCH ×2 (09:43→17:24)
[2018-02-22] MEDS: Enoxaparin 40 mg Syringe SC SCH (09:43)
[2018-02-22] MEDS: Multiple Vitamins Tab PO SCH (09:43)
--- NOTE | 2018-02-22 12:30 | CP.PCM.PN ---
Subjective - Date & Time of Evaluation Date of Evaluation: 02/22/18 Time of Evaluation: 08:00 - Subjective Subjective: weakness, low back pain, right hip pain HPI: Patient seen and examined at the bedside this morning. Patient reports that his breathing is the best it has been. Patient denies any chest pain or shortness of breath. Patient is afebrile. Patient continues to use BiPap . Patient has no acute complaints. ROS: Constitutional: Patient denies fever and chills. Cardiovascular: Patient denies chest pain and palpitations. Respiratory: Patient denies shortness of breath and cough. Gastrointestinal: Patient denies nausea, vomiting, diarrhea. Physical Exam HEENT: Atraumatic, normocephalic, mucuous membranes moist, EOMI Respiratory: Clear to auscultation bilaterally. No wheezing, rhonchi, or rales present. Cardiovascular: +S1/ S2, regular rate and rhythm GI: Soft normal bowel sounds, no tenderness, no distention Extremities: No LE edema Neurological: Alert, awake, oriented X3 Assessment: 67 year old male patient past medical history of ileostomy for bowel obstruction , COPD, anxiety, anemia; patient found to have stable COPD 1. Low back pain Status: Acute - Tramadol Hcl 50 mg PO Q8 - Physical therapy 2.Urinary tract infection Status: Acute - Doxycycline Hyclate 100 mg in Sodium chloride 100mls @mls/hr IVPB Q12H 3. COPD Status: Chronic - Continue BiPAP treatments -Albuterol 2 puff IH Q6 -Budesonide - 0.5 mg PO RQ12 -Roflumilast - 500 mcg PO daily [facility] - Vital Signs/Intake and Output Vital Signs (last 24 hours): Temp Pulse Resp BP Pulse Ox 97.8 F 102 H 20 110/74 100 02/22/18 08:25 02/22/18 08:25 02/22/18 08:25 02/22/18 08:25 02/22/18 08:25 Intake and Output: 02/22/18 02/22/18 06:59 18:59 Intake Total 500 Balance 500 - Medications Medications: Current Medications Albuterol (Ventolin Hfa 90 Mcg/Actuation (8 G)) 2 puff IH Q6 [facility] Last Admin: 02/22/18 07:37 Dose: 2 puff Alprazolam (Xanax) 0.5 mg PO Q12 [facility] Stop: 02/26/18 22:01 Last Admin: 02/22/18 10:29 Dose: 0.5 mg Budesonide (Pulmicort Respules) 0.5 mg INH RQ12 [facility] Last Admin: 02/22/18 07:36 Dose: 0.5 mg Diltiazem HCl (Cardizem) 60 mg PO QID [facility] Last Admin: 02/22/18 09:43 Dose: 60 mg Enoxaparin Sodium (Lovenox) 40 mg SC DAILY [facility] Last Admin: 02/22/18 09:43 Dose: 40 mg Doxycycline Hyclate 100 mg/ (Sodium Chloride) 100 mls @ 100 mls/hr IVPB Q12H [facility] PRN Reason: Protocol Last Admin: 02/22/18 08:00 Dose: 100 mls/hr Metronidazole (Flagyl) 500 mg in 100 mls @ 100 mls/hr IVPB Q8 [facility] PRN Reason: Protocol Last Admin: 02/22/18 05:16 Dose: 100 mls/hr Insulin Human Regular (Novolin R) 0 unit SC ACHS [facility] PRN Reason: Protocol Last Admin: 02/22/18 08:20 Dose: 2 units Lactobacillus Acidophilus (Bacid Acidophilus) 1 cap PO BID [facility] Last Admin: 02/22/18 09:43 Dose: 1 cap [facility]) [facility] Admin: 02/22/18 08:43 Dose: 500 mg Morphine Sulfate (Morphine) 2 mg SC Q4 PRN PRN Reason: Pain, moderate (4-7) Last Admin: 02/22/18 09:54 Dose: 2 mg Multivitamins (Hexavitamin) 1 tab PO DAILY [facility] Last Admin: 02/22/18 09:43 Dose: 1 tab Prednisone (Prednisone Tab) 5 mg PO DAILY [facility] Last Admin: 02/22/18 09:43 Dose: 5 mg Roflumilast (Daliresp) 500 mcg PO DAILY [facility] Last Admin: 02/22/18 09:43 Dose: 500 mcg Fluticasone/Salmeterol (Advair Diskus 250/50) 1 puff INH RBID [facility] Last Admin: 02/22/18 07:40 Dose: Not Given Tramadol HCl (Ultram) 50 mg PO Q8 [facility] Last Admin: 02/22/18 05:16 Dose: 50 mg - Labs Labs: 02/21/18 08:32 02/21/18 08:32 PT 12.0 SECONDS (9.7-12.2) 02/19/18 12:52 INR 1.1 02/19/18 12:52 APTT 26 SECONDS (21-34) 02/19/18 12:52
--- NOTE | 2018-02-22 16:07 | CP.PCM.PN ---
Subjective - Date & Time of Evaluation Date of Evaluation: 02/22/18 Time of Evaluation: 16:07 Objective - Vital Signs/Intake and Output Vital Signs (last 24 hours): Temp Pulse Resp BP Pulse Ox 97.8 F 102 H 20 110/74 100 02/22/18 08:25 02/22/18 08:25 02/22/18 08:25 02/22/18 08:25 02/22/18 08:25 Intake and Output: 02/22/18 02/22/18 06:59 18:59 Intake Total 500 Balance 500 - Medications Medications: Current Medications Albuterol (Ventolin Hfa 90 Mcg/Actuation (8 G)) 2 puff IH Q6 [facility] Last Admin: 02/22/18 13:49 Dose: 2 puff Alprazolam (Xanax) 0.5 mg PO Q12 [facility] Stop: 02/26/18 22:01 Last Admin: 02/22/18 10:29 Dose: 0.5 mg Budesonide (Pulmicort Respules) 0.5 mg INH RQ12 [facility] Last Admin: 02/22/18 07:36 Dose: 0.5 mg Diltiazem HCl (Cardizem) 60 mg PO QID [facility] Last Admin: 02/22/18 13:34 Dose: 60 mg Enoxaparin Sodium (Lovenox) 40 mg SC DAILY [facility] Last Admin: 02/22/18 09:43 Dose: 40 mg Doxycycline Hyclate 100 mg/ (Sodium Chloride) 100 mls @ 100 mls/hr IVPB Q12H [facility] PRN Reason: Protocol Last Admin: 02/22/18 08:00 Dose: 100 mls/hr Metronidazole (Flagyl) 500 mg in 100 mls @ 100 mls/hr IVPB Q8 [facility] PRN Reason: Protocol Last Admin: 02/22/18 13:34 Dose: 100 mls/hr Insulin Human Regular (Novolin R) 0 unit SC ACHS [facility] PRN Reason: Protocol Last Admin: 02/22/18 12:20 Dose: 2 units Lactobacillus Acidophilus (Bacid Acidophilus) 1 cap PO BID [facility] Last Admin: 02/22/18 09:43 Dose: 1 cap [facility] Last Admin: 02/22/18 08:43 Dose: 500 mg Morphine Sulfate (Morphine) 2 mg IVP Q4 PRN PRN Reason: Pain, moderate (4-7) Last Admin: 02/22/18 15:52 Dose: 2 mg Multivitamins (Hexavitamin) 1 tab PO DAILY [facility] Last Admin: 02/22/18 09:43 Dose: 1 tab Prednisone (Prednisone Tab) 5 mg PO DAILY [facility] Last Admin: 02/22/18 09:43 Dose: 5 mg Roflumilast (Daliresp) 500 mcg PO DAILY [facility] Last Admin: 02/22/18 09:43 Dose: 500 mcg Fluticasone/Salmeterol (Advair Diskus 250/50) 1 puff INH RBID [facility] Last Admin: 02/22/18 07:40 Dose: Not Given Tramadol HCl (Ultram) 50 mg PO Q8 [facility] Last Admin: 02/22/18 13:34 Dose: 50 mg - Labs Labs: 02/21/18 08:32 02/21/18 08:32 PT 12.0 SECONDS (9.7-12.2) 02/19/18 12:52 INR 1.1 02/19/18 12:52 APTT 26 SECONDS (21-34) 02/19/18 12:52
[2018-02-22 22:53] LABS: SQUAMOUS EPITHIAL 3 /hpf (0-5); URINE BILIRUBIN NEGATIVE (NEGATIVE); URINE BLOOD NEGATIVE (NEGATIVE); URINE CALCIUM OXALATE CRYSTALS OCC /hpf (<OCC); URINE CLARITY Hazy (Clear); URINE COLOR Yellow (YELLOW); URINE GLUCOSE (UA) 1+ mg/dL (Normal); URINE LEUKOCYTE ESTERASE 1+ Leu/uL (Negative); URINE PROTEIN NEGATIVE (NEGATIVE); URINE UROBILINOGEN NORMAL mg/dL (0.2-1.0)
--- NOTE | 2018-02-23 00:07 | CP.PCM.PN ---
Subjective - Date & Time of Evaluation Date of Evaluation: 02/22/18 Time of Evaluation: 18:30 - Subjective Subjective: Patient seen and examined at the bedside c/o weakness, low back pain, right hip pain. Patient reports that his breathing is the best it has been. Patient denies any chest pain or shortness of breath. Patient is afebrile. Patient continues to use BiPap . Patient has no acute complaints. Objective - Vital Signs/Intake and Output Vital Signs (last 24 hours): Temp Pulse Resp BP Pulse Ox 98.3 F 113 H 20 111/71 96 02/23/18 00:01 02/23/18 00:01 02/23/18 00:01 02/23/18 00:01 02/23/18 00:01 Intake and Output: 02/22/18 02/23/18 18:59 06:59 Intake Total 1400 Balance 1400 - Medications Medications: Current Medications Albuterol (Ventolin Hfa 90 Mcg/Actuation (8 G)) 2 puff IH Q6 [facility] Last Admin: 02/22/18 20:03 Dose: 2 puff Alprazolam (Xanax) 0.5 mg PO Q12 [facility] Stop: 02/26/18 22:01 Last Admin: 02/22/18 21:07 Dose: 0.5 mg Budesonide (Pulmicort Respules) 0.5 mg INH RQ12 [facility] Last Admin: 02/22/18 20:02 Dose: 0.5 mg Diltiazem HCl (Cardizem) 60 mg PO QID [facility] Last Admin: 02/22/18 21:07 Dose: 60 mg Doxycycline Hyclate (Doryx) 100 mg PO Q12H [facility] PRN Reason: Protocol Last Admin: 02/22/18 22:44 Dose: 100 mg Enoxaparin Sodium (Lovenox) 40 mg SC DAILY [facility] Last Admin: 02/22/18 09:43 Dose: 40 mg Insulin Human Regular (Novolin R) 0 unit SC ACHS [facility] PRN Reason: Protocol Last Admin: 02/22/18 21:08 Dose: Not Given Lactobacillus Acidophilus (Bacid Acidophilus) 1 cap PO BID [facility] Last Admin: 02/22/18 17:24 Dose: 1 cap Metformin HCl (Glucophage) 500 mg PO BIDCC [facility] Last Admin: 02/22/18 17:24 Dose: 500 mg Morphine Sulfate (Morphine) 2 mg SC Q4 PRN PRN Reason: Pain, moderate (4-7) Last Admin: 02/22/18 22:49 Dose: 2 mg Multivitamins (Hexavitamin) 1 tab PO DAILY [facility] Last Admin: 02/22/18 09:43 Dose: 1 tab Prednisone (Prednisone Tab) 5 mg PO DAILY [facility] Last Admin: 02/22/18 09:43 Dose: 5 mg Roflumilast (Daliresp) 500 mcg PO DAILY [facility] Last Admin: 02/22/18 09:43 Dose: 500 mcg Fluticasone/Salmeterol (Advair Diskus 250/50) 1 puff INH RBID [facility] Last Admin: 02/22/18 20:03 Dose: Not Given Tramadol HCl (Ultram) 50 mg PO Q8 [facility] Last Admin: 02/22/18 21:07 Dose: 50 mg - Labs Labs: 02/21/18 08:32 02/21/18 08:32 PT 12.0 SECONDS (9.7-12.2) 02/19/18 12:52 INR 1.1 02/19/18 12:52 APTT 26 SECONDS (21-34) 02/19/18 12:52 Assessment and Plan (1) Low back pain Status: Acute (2) COPD (chronic obstructive pulmonary disease) Status: Acute (3) Allergic rhinitis Status: Chronic (4) PUNEET (generalized anxiety disorder) Status: Chronic (5) Steroid-induced diabetes Status: Chronic
[2018-02-23] MEDS: Albuterol HFA 90 mcg/actuation (8 g) IH SCH ×3 (01:44→13:35)
[2018-02-23] MEDS: Budesonide 0.5 mg/2 ml Inhal Susp UD INH SCH (07:33)
[2018-02-23] MEDS: Fluticasone-Salmeterol 250-50mcg Diskus INH SCH (07:36)
[2018-02-23 08:23] VITALS: BP 115/62; PULSE 105; TEMP 97.7
[2018-02-23] MEDS: Enoxaparin 40 mg Syringe SC SCH (09:36)
[2018-02-23] MEDS: Lactobacillus Acidophilus 500 MU Cap PO SCH (09:36)
[2018-02-23] MEDS: Multiple Vitamins Tab PO SCH (09:36)
[2018-02-23] MEDS: (Novolin R) Insulin Human Regular 100 units/ml vial SC SCH ×2 (09:37→13:22)
--- NOTE | 2018-02-23 12:26 | CP.PCM.PN ---
Subjective - Date & Time of Evaluation Date of Evaluation: 02/23/18 Time of Evaluation: 10:00 - Subjective Subjective: patient seen and examined Denies shortness of breath Afebrile Being discharged home Continue nebulizer treatment Continue trilogy at home Objective - Vital Signs/Intake and Output Vital Signs (last 24 hours): Temp Pulse Resp BP Pulse Ox 97.7 F 105 H 20 115/62 99 02/23/18 08:00 02/23/18 08:00 02/23/18 08:00 02/23/18 08:00 02/23/18 08:00 Intake and Output: 02/23/18 02/23/18 06:59 18:59 Intake Total 240 Balance 240 - Medications Medications: Current Medications Albuterol (Ventolin Hfa 90 Mcg/Actuation (8 G)) 2 puff IH Q6 [facility] Last Admin: 02/23/18 07:33 Dose: 2 puff Alprazolam (Xanax) 0.5 mg PO Q12 [facility] Stop: 02/26/18 22:01 Last Admin: 02/23/18 09:36 Dose: 0.5 mg Budesonide (Pulmicort Respules) 0.5 mg INH RQ12 [facility] Last Admin: 02/23/18 07:33 Dose: 0.5 mg Diltiazem HCl (Cardizem) 60 mg PO QID [facility] Last Admin: 02/23/18 09:36 Dose: 60 mg Doxycycline Hyclate (Doryx) 100 mg PO Q12H [facility] PRN Reason: Protocol Last Admin: 02/23/18 09:36 Dose: 100 mg Enoxaparin Sodium (Lovenox) 40 mg SC DAILY [facility] Last Admin: 02/23/18 09:36 Dose: 40 mg Insulin Human Regular (Novolin R) 0 unit SC ACHS [facility] PRN Reason: Protocol Last Admin: 02/23/18 09:37 Dose: 2 units Lactobacillus Acidophilus (Bacid Acidophilus) 1 cap PO BID [facility] Last Admin: 02/23/18 09:36 Dose: 1 cap Metformin HCl (Glucophage) 500 mg PO BIDCC [facility] Last Admin: 02/23/18 09:38 Dose: 500 mg Morphine Sulfate (Morphine) 2 mg SC Q4 PRN PRN Reason: Pain, moderate (4-7) Last Admin: 02/22/18 22:49 Dose: 2 mg Multivitamins (Hexavitamin) 1 tab PO DAILY [facility] Last Admin: 02/23/18 09:36 Dose: 1 tab Prednisone (Prednisone Tab) 5 mg PO DAILY [facility] Last Admin: 02/23/18 09:36 Dose: 5 mg Roflumilast (Daliresp) 500 mcg PO DAILY [facility] Last Admin: 02/23/18 09:41 Dose: 500 mcg Fluticasone/Salmeterol (Advair Diskus 250/50) 1 puff INH RBID [facility] Last Admin: 02/23/18 07:36 Dose: Not Given Tramadol HCl (Ultram) 50 mg PO Q8 [facility] Last Admin: 02/23/18 06:44 Dose: 50 mg - Labs Labs: 02/21/18 08:32 02/21/18 08:32 PT 12.0 SECONDS (9.7-12.2) 02/19/18 12:52 INR 1.1 02/19/18 12:52 APTT 26 SECONDS (21-34) 02/19/18 12:52
[2018-02-23 21:25] VITALS: O2SAT 96
--- NOTE | 2018-02-24 01:58 | CP.PCM.DIS ---
Provider - Provider Date of Admission: 02/19/18 14:33 Attending physician: Hal Garcia MD Time Spent in preparation of Discharge (in minutes): 45 Diagnosis - Discharge Diagnosis (1) Low back pain Status: Acute (2) COPD (chronic obstructive pulmonary disease) Status: Acute (3) Allergic rhinitis Status: Chronic Priority: Medium (4) PUNEET (generalized anxiety disorder) Status: Chronic (5) Steroid-induced diabetes Status: Chronic Hospital Course - Lab Results Lab Results: Micro Results 02/20/18 23:48 Blood Blood Culture - Preliminary NO GROWTH AFTER 3 DAYS 02/20/18 23:48 Blood Blood Culture - Preliminary NO GROWTH AFTER 3 DAYS 02/21/18 11:11 Urine,Clean Catch Urine Culture - Final No Growth (<1,000 CFU/ML) 02/19/18 12:55 Urine Urine Culture - Final Escherichia Coli Most Recent Lab Values WBC 11.6 K/uL (4.8-10.8) H 02/21/18 08:32 RBC 4.53 Mil/uL (4.40-5.90) 02/21/18 08:32 Hgb 9.8 g/dL (12.0-18.0) L 02/21/18 08:32 Hct 30.2 % (35.0-51.0) L 02/21/18 08:32 MCV 66.6 fL (80.0-94.0) L 02/21/18 08:32 MCH 21.5 pg (27.0-31.0) L 02/21/18 08:32 MCHC 32.4 g/dL (33.0-37.0) L 02/21/18 08:32 RDW 18.3 % (11.5-14.5) H 02/21/18 08:32 Plt Count 246 K/uL (130-400) 02/21/18 08:32 MPV 8.1 fL (7.2-11.7) 02/21/18 08:32 Neut % (Auto) 73.7 % (50.0-75.0) 02/21/18 08:32 Lymph % (Auto) 19.1 % (20.0-40.0) L 02/21/18 08:32 [place] % (Auto) 6.1 % (0.0-10.0) 02/21/18 08:32 Eos % (Auto) 0.9 % (0.0-4.0) 02/21/18 08:32 Baso % (Auto) 0.2 % (0.0-2.0) 02/21/18 08:32 Neut # (Auto) 8.6 K/uL (1.8-7.0) H 02/21/18 08:32 Lymph # (Auto) 2.2 K/uL (1.0-4.3) 02/21/18 08:32 Davidson # (Auto) 0.7 K/uL (0.0-0.8) 02/21/18 08:32 Eos # (Auto) 0.1 K/uL (0.0-0.7) 02/21/18 08:32 Baso # (Auto) 0.0 K/uL (0.0-0.2) 02/21/18 08:32 Differential Comment 02/19/18 12:52 PT 12.0 SECONDS (9.7-12.2) 02/19/18 12:52 INR 1.1 02/19/18 12:52 APTT 26 SECONDS (21-34) 02/19/18 12:52 Sodium 140 mmol/L (132-148) 02/21/18 08:32 Potassium 4.0 mmol/L (3.6-5.2) 02/21/18 08:32 Chloride 101 mmol/L (98-107) 02/21/18 08:32 Carbon Dioxide 29 mmol/L (22-30) 02/21/18 08:32 Anion Gap 13 (10-20) 02/21/18 08:32 BUN 8 mg/dL (9-20) L 02/21/18 08:32 Creatinine 0.5 mg/dL (0.8-1.5) L 02/21/18 08:32 Est GFR ( Amer) > 60 02/21/18 08:32 Est GFR (Non-Af Amer) > 60 02/21/18 08:32 POC Glucose (mg/dL) 152 mg/dL (65-110) H 02/23/18 11:16 Random Glucose 128 mg/dL (75-110) H 02/21/18 08:32 Calcium 8.9 mg/dl (8.6-10.4) 02/21/18 08:32 Total Bilirubin 0.5 mg/dL (0.2-1.3) 02/19/18 12:52 AST 31 U/L (17-59) 02/19/18 12:52 ALT 55 U/L (21-72) 02/19/18 12:52 Alkaline Phosphatase 150 U/L (38-126) H D 02/19/18 12:52 Total Creatine Kinase < 20 U/L (55-170) L 02/19/18 12:52 CK-MB (Mass) 0.80 ng/mL (0.0-3.38) 02/19/18 12:52 Troponin I < 0.0120 ng/mL (0.00-0.120) 02/19/18 12:52 NT-Pro-B Natriuret Pep 71.3 pg/mL (0-900) 02/19/18 12:52 Total Protein 6.6 g/dL (6.3-8.3) 02/19/18 12:52 Albumin 4.1 g/dL (3.5-5.0) 02/19/18 12:52 Globulin 2.5 gm/dL (2.2-3.9) 02/19/18 12:52 Albumin/Globulin Ratio 1.6 (1.0-2.1) 02/19/18 12:52 Urine Color Yellow (YELLOW) 02/22/18 22:43 Urine Clarity Hazy (Clear) 02/22/18 22:43 Urine pH 5.0 (5.0-8.0) 02/22/18 22:43 Ur Specific [place] 1.014 (1.003-1.030) 02/22/18 22:43 Urine Protein Negative mg/dL (NEGATIVE) 02/22/18 22:43 Urine Glucose (UA) 1+ mg/dL (Normal) H 02/22/18 22:43 Urine Ketones Negative mg/dL (NEGATIVE) 02/22/18 22:43 Urine Blood Negative (NEGATIVE) 02/22/18 22:43 Urine Nitrate Negative (NEGATIVE) 02/22/18 22:43 Urine Bilirubin Negative (NEGATIVE) 02/22/18 22:43 Urine Urobilinogen Normal mg/dL (0.2-1.0) 02/22/18 22:43 Ur Leukocyte Esterase 1+ Eulalio/uL (Negative) H 02/22/18 22:43 Urine WBC (Auto) 9 /hpf (0-5) H 02/22/18 22:43 Urine RBC (Auto) 1 /hpf (0-3) 02/22/18 22:43 Ur Squamous Epith Cells 3 /hpf (0-5) 02/22/18 22:43 Calcium Oxalate Crystal Occ /hpf (<OCC) H 02/22/18 22:43 Urine Bacteria Rare (<OCC) 02/19/18 12:55 - Hospital Course Hospital Course: patient seen and examined Denies shortness of breath Afebrile Being discharged home Continue nebulizer treatment Continue trilogy at home Discharge Exam - Head Exam Head Exam: ATRAUMATIC, NORMAL INSPECTION, NORMOCEPHALIC Discharge Plan - Follow Up Plan Condition: STABLE Disposition: HOME/ ROUTINE Instructions: COPD Including Emphysema (DC), Heart Failure, Adult (DC), Diabetes and Diet Additional Instructions: Please f/u with Dr. Garcia office n 1 week Please f/u with Dr. Nuno office in 2 weeks Continue medication as per Med. rec. Referrals: Ralf Nuno MD [Staff Provider] - Hal Garcia MD [Staff Provider] -
== END 2018-02-23 14:31 | disposition home or self-care (01) | DRG 552 ==
LOC: C.ER 11:54 → C.9E 14:33 → C.5S 17:28
PROVIDERS: ADMIT Internal Medicine; ATTEND Internal Medicine
DX: M54.5 Low back pain (principal); I13.0 Hypertensive heart and chronic kidney disease with heart failure and stage 1 through stage 4 chronic kidney disease, or unspecified chronic kidney disease; N39.0 Urinary tract infection, site not specified; E09.9 Drug or chemical induced diabetes mellitus without complications; E78.00 Pure hypercholesterolemia, unspecified; F41.1 Generalized anxiety disorder; G47.30 Sleep apnea, unspecified; I50.9 Heart failure, unspecified; J43.9 Emphysema, unspecified; N18.9 Chronic kidney disease, unspecified; T38.0X5A Adverse effect of glucocorticoids and synthetic analogues, initial encounter; Z79.899 Other long term (current) drug therapy; Z85.038 Personal history of other malignant neoplasm of large intestine; Z87.891 Personal history of nicotine dependence; Z93.3 Colostomy status

== ENCOUNTER 2018-03-06 05:25 | Inpatient (IN) | payer MEDICARE, BC ==
[2018-03-06 05:26] VITALS: BMI 24.2
[2018-03-06] MEDS ORDERED: Albuterol-Ipratrop 3 mg / 0.5 (3 ml) UD ONE (05:35)
[2018-03-06] MEDS ORDERED: MethylPREDNISolone 40 mg Vial ONE (05:36)
--- NOTE | 2018-03-06 05:37 | C.PDOC ---
History Of Present Illness HPI is Limited due to clinical condition, Hx per EMS. As per EMS, patient had COPD exactly 3 days ago that worsened. As per EMS, patient was noted to be severe dyspnea on exertion with minimal exertion. 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 Patient states home home 02 3L constant use. Denies fever. LIMITED DUE TO CLIN COND HX PER EMS COPD EXAC X 3 DAYS WORSENING. PER EMS PT NOTED TO BE SEVERE DE LEON W MIN EXERTION. MULT PRIOR ER VISITS FOR SAME history of advance COPD, steroid induced, diabetes , allergic rhinitis,post herpetic neuralgia, h/o colon v\cancer stage 1 sp resection colostomy. PS HOME O2 3L USE, CONSTANT. DENIES FEVER. ROS LIMITED EXAM MOD DIST LUNGS RETRACTIONS POOR BS BL TACHYPNEA CV RRR SINUS TACH NO EDEMA WARM DRY ABD COLOSTOMY SOFT NT ND REMAINDER NEG Time Seen by Provider: 03/06/18 05:32 History Per: Patient, EMS History/Exam Limitations: clinical condition Onset/Duration Of Symptoms: Hrs Current Symptoms Are (Timing): Still Present Exacerbating Factor(s): Exertion Current Respiratory Medications: See Home Med List Associated Symptoms: denies: Fever, Chills Recent travel outside of the [place]: No Past Medical History Reviewed: Historical Data, Nursing Documentation, Vital Signs Vital Signs: Last Vital Signs Temp 98.0 F 03/06/18 15:10 Pulse 112 H 03/06/18 15:10 Resp 18 03/06/18 15:10 BP 103/64 03/06/18 15:10 Pulse Ox 99 03/06/18 15:10 - Medical History PMH: Anemia, Anxiety, Arthritis, Asthma, Bronchitis, Cardia Arrhythmia (SVT), CHF, COPD, Diabetes, Emphysema, HTN, Hypercholesterolemia, Kidney Stones, Pneumonia, Chronic Kidney Disease, Sleep Apnea (ON DALIRESP) Surgical History: Endoscopy - [facility] Procedures ASSISTANCE WITH RESPIRATORY VENTILATION, 24-96 HRS, CPAP (08/23/17) ASSISTANCE WITH RESPIRATORY VENTILATION, <24 HRS, CPAP (11/14/17) ASSISTANCE WITH RESPIRATORY VENTILATION, >96 HRS, CPAP (02/07/18) CONTINUOUS INVASIVE MECHANICAL VENTILATION <96 CONSEC HRS (11/29/14) DILATION OF RIGHT URETER WITH INTRALUMINAL DEVICE, ENDO (03/20/17) DRAINAGE OF BLADDER WITH DRAINAGE DEVICE, VIA OPENING (12/04/17) DRAINAGE OF RECTUM, PERCUTANEOUS APPROACH (12/04/17) EXCISION OF ILEUM, OPEN APPROACH (12/04/17) EXCISION OF SIGMOID COLON, ENDO, DIAGN (03/20/17) EXCISION OF STOMACH, ENDO, DIAGN (03/20/17) EXCISION OF TRANSVERSE COLON, ENDO, DIAGN (03/20/17) INFLUENZA VACCINATION (06/02/14) INSERT ENDOTRACHEAL TUBE (11/29/14) INSERTION OF INFUSION DEV INTO SUP VENA CAVA, PERC APPROACH (01/26/18) LARYGNOSCOPY AND OTH TRACHEOSCOPY (04/18/15) MEASURE OF CARDIAC SAMPL & PRESSURE, L HEART, PERC APPROACH (12/01/15) NON-INVASIVE MECHANICAL VENTILATION (04/18/15) RESECTION OF SIGMOID COLON, OPEN APPROACH (03/20/17) RESPIRATORY VENTILATION, GREATER THAN 96 CONSECUTIVE HOURS (03/20/17) Family History: States: Unknown Family Hx - Social History Hx Tobacco Use: Yes (8 years ppd smoker. quit 1.5 years ago) Hx Alcohol Use: No Hx Substance Use: No - Immunization History Hx Tetanus Toxoid Vaccination: No Hx Influenza Vaccination: Yes Hx Pneumococcal Vaccination: Yes Review Of Systems Review Of Systems: ROS cannot be obtained secondary to pt's inabilty to answer questions. (Limited due to condition) Constitutional: Negative for: Fever Respiratory: Positive for: SOB with Excertion, Other (COPD) Skin: Negative for: Rash Neurological: Negative for: Weakness, Numbness Physical Exam - Physical Exam Appears: Non-toxic, In Acute Distress (Moderate ) Skin: Normal Color, Warm, Dry Head: Atraumatic, Normacephalic Eye(s): bilateral: Normal Inspection, PERRL, EOMI Oral Mucosa: Moist Neck: Supple Chest: Symmetrical, No Tenderness Cardiovascular: Rhythm Regular (Sinus Tachycardic ) Respiratory: No Rales, No Rhonchi, No Wheezing, Other (LUNGS RETRACTIONS; BILATERAL TACHYPNEA ) Gastrointestinal/Abdominal: Bowel Sounds (Poor ), Soft, No Tenderness, No Distention, Other (COLOSTOMY) Extremity: Normal ROM, No Pedal Edema, No Deformity, No Swelling Extremity: Bilateral: Atraumatic, Normal Color And Temperature, Normal ROM Pulses: Left Dorsalis Pedis: Normal, Right Dorsalis Pedis: Normal Neurological/Psych: Oriented x3, Normal Speech, Other (no focal deficits ) ED Course And Treatment - Laboratory Results Result Diagrams: 03/06/18 05:42 03/06/18 05:42 ECG: Interpreted By Me ECG Rhythm: Sinus Tachycardia ECG Interpretation: Abnormal Rate From EC O2 Sat by Pulse Oximetry: 100 (RA) Pulse Ox Interpretation: Normal Progress - Data Reviewed Data Reviewed: Lab, Diagnostic imaging, EKG, Old records - Critical Care Citical Care: Excluding Proc Time Critical Care Time: 90 minutes - Continuity of Care Discussed patient case with:: Patient Medical Decision Making Medical Decision Making: Administered Albuterol nebullizar treatment, SOLLU-Medrol, peakflow and BIPAP. Ordered blood work, EKG, BG, amd CXR. Disposition Counseled Patient/Family Regarding: Studies Performed, Diagnosis - Disposition Disposition: HOSPITALIZED Disposition Time: 06:06 Condition: STABLE - POA Present On Arrival: None - Clinical Impression Clinical Impression: COPD exacerbation - Scribe Statement The provider has reviewed the documentation as recorded by the Scribilya Talamantes All medical record entries made by the Merryibilya were at my direction and personally dictated by me. I have reviewed the chart and agree that the record accurately reflects my personal performance of the history, physical exam, medical decision making, and the department course for this patient. I have also personally directed, reviewed, and agree with the discharge instructions and disposition.
[2018-03-06 05:44] LABS: BASO # 0.2 K/uL (0.0-0.2); BASO % 1.4 % (0.0-2.0); EOS # 0.3 K/uL (0.0-0.7); HEMOGLOBIN 10.6 g/dL (12.0-18.0); LYMPH % 25.4 % (20.0-40.0); MEAN CELL VOLUME 66.9 fL (80.0-94.0); MEAN CORPUSCULAR HEMOGLOBIN 21.4 pg (27.0-31.0); MEAN PLATELET VOLUME 7.6 fL (7.2-11.7); MONO # 0.9 K/uL (0.0-0.8); MONO % 7.9 % (0.0-10.0); NEUT # 7.3 K/uL (1.8-7.0); NEUT % 62.3 % (50.0-75.0); RBC 4.96 Mil/uL (4.40-5.90); RED CELL DISTRIBUTION WIDTH 18.9 % (11.5-14.5); WHITE BLOOD COUNT 11.7 K/uL (4.8-10.8)
[2018-03-06] MEDS ORDERED: Albuterol-Ipratrop 3 mg / 0.5 (3 ml) UD INH STA (05:48)
[2018-03-06 05:54] LABS: ABG ALLEN TEST POS; ARTERIAL BLOOD GAS HCO3 25.1 mmol/L (21-28); ARTERIAL BLOOD GAS O2 SAT 99.6 % (95-98); ARTERIAL BLOOD GAS PCO2 46 mm/Hg (35-45); ARTERIAL BLOOD GAS PH 7.36 (7.35-7.45); ARTERIAL BLOOD GAS PO2 244 mm/Hg (80-100); ARTERIAL BLOOD GAS TCO2 27.4 mmol/L (22-28)
[2018-03-06 06:08] LABS: B-TYPE NATRIURETIC PEPTIDE 72.1 pg/mL (0-900)
[2018-03-06 06:23] LABS: ALB/GLOB RATIO 1.4 (1.0-2.1); ALBUMIN 4.2 g/dL (3.5-5.0); ALT/SGPT 41 U/L (21-72); AST/SGOT 22 U/L (17-59); BLOOD UREA NITROGEN 4 mg/dL (9-20); CALCIUM 9.9 mg/dl (8.6-10.4); GFR AFRICAN-AMERICAN > 60; GFR NON-AFRICAN AMERICAN > 60
[2018-03-06] MEDS ORDERED: (Novolog) Insulin Aspart, Recombinant 100 u/ml 10 ml vial SC SCH ×2 (07:30)
[2018-03-06] MEDS: Budesonide 0.5 mg/2 ml Inhal Susp UD INH SCH ×2 (08:20→20:26)
[2018-03-06] MEDS: Fluticasone-Salmeterol 250-50mcg Diskus INH SCH ×2 (08:20→20:26)
[2018-03-06] MEDS ORDERED: (Novolog) Insulin Aspart, Recombinant 100 u/ml 10 ml vial ONE (08:29)
--- NOTE | 2018-03-06 08:35 | RAD ---
Date of service: 03/06/2018 PROCEDURE: CHEST RADIOGRAPH, 1 VIEW HISTORY: SOB COMPARISON: Portable chest 02/19/2018. FINDINGS: LUNGS: No acute pulmonary disease appreciated bilaterally. PLEURA: No pneumothorax or pleural fluid seen. CARDIOVASCULAR: Normal. OSSEOUS STRUCTURES: No significant abnormalities. VISUALIZED UPPER ABDOMEN: Normal. OTHER FINDINGS: None. IMPRESSION: No interval acute cardiopulmonary disease appreciated.
[2018-03-06] MEDS: MethylPREDNISolone 40 mg Vial IVP SCH ×2 (09:22→21:16)
[2018-03-06] MEDS: guaiFENesin 200 mg/10 ml Syrup UD PO PRN (09:42)
[2018-03-06] MEDS: Multiple Vitamins Tab PO SCH (09:43)
[2018-03-06] MEDS ORDERED: Enoxaparin 40 mg Syringe SC SCH (10:00)
[2018-03-06] MEDS: Pantoprazole 40 mg EC Tab PO SCH (10:33)
[2018-03-06] MEDS: (Novolog) Insulin Aspart, Recombinant 100 u/ml 10 ml vial SC SCH ×3 (11:45→21:49)
[2018-03-06] MEDS ORDERED: Albuterol HFA 90 mcg/actuation (8 g) IH SCH (12:00)
--- NOTE | 2018-03-06 13:41 | CP.PCM.PN ---
Subjective - Date & Time of Evaluation Date of Evaluation: 03/06/18 Time of Evaluation: 11:30 - Subjective Subjective: ANIMAL CARE ATTENDANT NOTES Patient seen and examined today , c/o sob, cough, congestion, and chest pressure left side , non radiating , scale 5/10 , and palpitations, and R side abdominal pain , denies any fever, chills, N/V/D on Bipap sinus tachy on monitor - HR 120-135 Objective - Vital Signs/Intake and Output Vital Signs (last 24 hours): Temp Pulse Resp BP Pulse Ox 97.5 F L 128 H 23 119/67 100 03/06/18 09:19 03/06/18 11:29 03/06/18 09:19 03/06/18 09:19 03/06/18 09:19 - Medications Medications: Current Medications Albuterol (Ventolin Hfa 90 Mcg/Actuation (8 G)) 1 puff IH RQ6 PRN PRN Reason: Shortness of Breath Alprazolam (Xanax) 0.5 mg PO Q12 [facility] Stop: 03/13/18 10:01 Last Admin: 03/06/18 09:42 Dose: 0.5 mg Budesonide (Pulmicort Respules) 0.5 mg INH RQ12 [facility] Last Admin: 03/06/18 08:20 Dose: 0.5 mg Diltiazem HCl (Cardizem) 60 mg PO Q6 [facility] Last Admin: 03/06/18 11:59 Dose: 60 mg Enoxaparin Sodium (Lovenox) 40 mg SC DAILY [facility] Last Admin: 03/06/18 09:43 Dose: 40 mg Guaifenesin (Robitussin) 200 mg PO Q4H PRN PRN Reason: Cough and congestion Last Admin: 03/06/18 09:42 Dose: 200 mg Insulin Aspart (Novolog) 0 unit SC ACHS [facility] PRN Reason: Protocol Last Admin: 03/06/18 11:45 Dose: 4 units Metformin HCl (Glucophage) 500 mg PO BIDCC [facility] Last Admin: 03/06/18 08:33 Dose: 500 mg Methylprednisolone (Solu-Medrol) 40 mg IVP Q12 [facility] Last Admin: 03/06/18 09:22 Dose: 40 mg Morphine Sulfate (Morphine) 2 mg SC Q4 PRN PRN Reason: Pain, severe (8-10) Multivitamins (Hexavitamin) 1 tab PO DAILY [facility] Last Admin: 03/06/18 09:43 Dose: 1 tab Pantoprazole Sodium (Protonix Ec Tab) 40 mg PO DAILY [facility] Last Admin: 03/06/18 10:33 Dose: 40 mg Roflumilast (Daliresp) 500 mcg PO DAILY [facility] Last Admin: 03/06/18 09:44 Dose: 500 mcg Fluticasone/Salmeterol (Advair Diskus 250/50) 1 puff INH RQ12 [facility] Last Admin: 03/06/18 08:20 Dose: 1 puff - Labs Labs: 03/06/18 05:42 03/06/18 05:42 - Constitutional Appears: Non-toxic, Other (moderate resp. distress ) - Respiratory Exam Respiratory Exam: Decreased Breath Sounds, Rhonchi, Wheezes, Respiratory Distress (moderate) - Cardiovascular Exam Cardiovascular Exam: Tachycardia, +S1, +S2 - Neurological Exam Neurological Exam: Alert, Awake, Oriented x3 Additional comments: resting tremors noted on RUE Assessment and Plan - Assessment and Plan (Free Text) Assessment: A/P 67 yr old male with pmhx of Anemia, Anxiety, Arthritis, Asthma, Bronchitis, Cardia Arrhythmia (SVT), COPD, Diabetes, admitted with exc. COPD On Bipap sinus tachy on monitor involuntary movement noted on RUE and RLE and as per gait wabbly for aprox. 5 days D/W Dr. Garcia will consult Dr. Irizarry for neurology , and Dr. Correia for cardiology consult for chest pain will do duplex scan lower extremity r/o DVT pt has hx of DVT in the past and will do D- dimer Patient and verbalized code status to be DNR/DNI , IAM Sr witnessed the discussion Patient has a POLST in old record and placed copy in the chart DVT - + left femoral LE, will start Lovenox therapeutic for now
[2018-03-06] MEDS: Albuterol HFA 90 mcg/actuation (8 g) IH PRN ×2 (14:04→20:26)
[2018-03-06] MEDS: Enoxaparin 80 mg Syringe SC SCH (16:12)
[2018-03-06] MEDS ORDERED: Enoxaparin 80 mg Syringe SC SCH (18:00)
--- NOTE | 2018-03-06 19:04 | CP.PCM.CON ---
History of Present Illness - History of Present Illness History of Present Illness: reason for consultation: shortness of breath and tachycardia 67 M familiar to the medical underwriter with PMHx of COPD, presented to the ED with complaints of shortness of breath, and Palpitation for the past few days. The patient was recently hospitalized with a COPD exacerbation. Patient denies extremity swelling, palpitations, fever or chills. Review of Systems - Review of Systems All systems: reviewed and no additional remarkable complaints except (shortness of breath) Past Patient History - Infectious Disease Hx of Infectious Diseases: None - Past Medical History & Family History Past Medical History?: Yes - Past Social History Smoking Status: Former Smoker - CARDIAC Hx Cardia Arrhythmia: Yes (SVT) Hx Congestive Heart Failure: Yes Hx Hypercholesterolemia: Yes Hx Hypertension: Yes - PULMONARY Hx Asthma: Yes Hx Bronchitis: Yes Hx Chronic Obstructive Pulmonary Disease (COPD): Yes Hx Emphysema: Yes Hx Pneumonia: Yes Hx Sleep Apnea: Yes (ON DALIRESP) - NEUROLOGICAL Hx Neurological Disorder: No HX Cerebrovascular Accident: No - HEENT Hx HEENT Problems: Yes Hx Cataracts: Yes Hx Deafness: No Hx Difficulty Chewing: No Hx Epistaxis: No Hx Glaucoma: No Hx Macular Degeneration: No Other/Comment: wears eyeglasses for distance - RENAL Hx Chronic Kidney Disease: Yes Hx Kidney Stones: Yes - ENDOCRINE/METABOLIC Hx Endocrine Disorders: Yes Hx Diabetes Mellitus Type 2: Yes - HEMATOLOGICAL/ONCOLOGICAL Hx Anemia: Yes - INTEGUMENTARY Hx Dermatological Problems: Yes Other/Comment: Scattered ecchymosis on both arms. - MUSCULOSKELETAL/RHEUMATOLOGICAL Hx Arthritis: Yes Hx Falls: No - GASTROINTESTINAL Hx Ileostomy: Yes Other/Comment: colostomy right side - GENITOURINARY/GYNECOLOGICAL Hx Genitourinary Disorders: No - PSYCHIATRIC Hx Anxiety: Yes Hx Substance Use: No - SURGICAL HISTORY Hx Surgeries: Yes - ANESTHESIA Hx Anesthesia: Yes Hx Anesthesia Reactions: No Hx Malignant Hyperthermia: No Has any member of the family had a problem w/ anesthesia?: No Meds Allergies/Adverse Reactions: Allergies Allergy/AdvReac Type Severity Reaction Status Date / Time acetaminophen [From Tylenol] Allergy RASH Verified 02/19/18 12:12 FISH Allergy SWELLING Verified 02/19/18 12:12 shrimp Allergy SHORTNESS Verified 02/19/18 12:12 OF BREATH IV dye Allergy Severe ANAPHYLAXIS Uncoded 02/19/18 12:12 - Medications Medications: Current Medications Albuterol (Ventolin Hfa 90 Mcg/Actuation (8 G)) 1 puff IH RQ6 PRN PRN Reason: Shortness of Breath Last Admin: 03/06/18 14:04 Dose: 1 inhaler Alprazolam (Xanax) 0.5 mg PO Q12 [facility] Stop: 03/13/18 10:01 Last Admin: 03/06/18 09:42 Dose: 0.5 mg Aspirin (Aspirin Chewable) 81 mg PO DAILY [facility] Budesonide (Pulmicort Respules) 0.5 mg INH RQ12 [facility] Last Admin: 03/06/18 08:20 Dose: 0.5 mg Diltiazem HCl (Cardizem) 60 mg PO Q6 [facility] Last Admin: 03/06/18 17:38 Dose: 60 mg Enoxaparin Sodium (Lovenox) 70 mg SC Q12H [facility] Last Admin: 03/06/18 16:12 Dose: 70 mg Guaifenesin (Robitussin) 200 mg PO Q4H PRN PRN Reason: Cough and congestion Last Admin: 03/06/18 09:42 Dose: 200 mg Insulin Aspart (Novolog) 0 unit SC ACHS [facility] PRN Reason: Protocol Last Admin: 03/06/18 17:39 Dose: 2 units Metformin HCl (Glucophage) 500 mg PO BIDCC [facility] Last Admin: 03/06/18 17:38 Dose: 500 mg Methylprednisolone (Solu-Medrol) 40 mg IVP Q12 [facility] Last Admin: 03/06/18 09:22 Dose: 40 mg Morphine Sulfate (Morphine) 2 mg SC Q4 PRN PRN Reason: Pain, severe (8-10) Multivitamins (Hexavitamin) 1 tab PO DAILY [facility] Last Admin: 03/06/18 09:43 Dose: 1 tab Pantoprazole Sodium (Protonix Ec Tab) 40 mg PO DAILY [facility] Last Admin: 03/06/18 10:33 Dose: 40 mg Roflumilast (Daliresp) 500 mcg PO DAILY [facility] Last Admin: 03/06/18 09:44 Dose: 500 mcg Fluticasone/Salmeterol (Advair Diskus 250/50) 1 puff INH RQ12 [facility] Last Admin: 03/06/18 08:20 Dose: 1 puff Physical Exam - Head Exam Head Exam: ATRAUMATIC, NORMOCEPHALIC - ENT Exam ENT Exam: Mucous Membranes Moist - Neck Exam Neck exam: Positive for: Normal Inspection - Respiratory Exam Respiratory Exam: Decreased Breath Sounds - Cardiovascular Exam Cardiovascular Exam: REGULAR RHYTHM Results - Vital Signs Recent Vital Signs: Last Vital Signs Temp 98.0 F 03/06/18 15:10 Pulse 112 H 03/06/18 15:10 Resp 18 03/06/18 15:10 BP 103/64 03/06/18 15:10 Pulse Ox 99 03/06/18 15:10 - Labs Result Diagrams: 03/06/18 05:42 03/06/18 05:42 Labs: Laboratory Results - last 24 hr 03/06/18 03/06/18 03/06/18 05:42 05:42 05:50 WBC 11.7 H RBC 4.96 Hgb 10.6 L Hct 33.2 L MCV 66.9 L MCH 21.4 L MCHC 32.0 L RDW 18.9 H Plt Count 324 MPV 7.6 Neut % (Auto) 62.3 Lymph % (Auto) 25.4 [place] % (Auto) 7.9 Eos % (Auto) 3.0 Baso % (Auto) 1.4 Neut # (Auto) 7.3 H Lymph # (Auto) 3.0 [place] # (Auto) 0.9 H Eos # (Auto) 0.3 Baso # (Auto) 0.2 D-Dimer, Quantitative Puncture Site Rr pCO2 46 H pO2 244 H HCO3 25.1 ABG pH 7.36 ABG Total CO2 27.4 ABG O2 Saturation 99.6 H ABG Base Excess 0.1 Jesus Test Pos ABG Potassium 3.5 L A-a O2 Difference -16.0 Respiratory Index -0.1 Glucose 140 H Lactate 1.8 Vent Mode Bipap FiO2 40.0 Inspiratory BiPAP 12 Expiratory BiPAP 6 Sodium 145 141.0 Potassium 4.6 Chloride 105 107.0 Carbon Dioxide 28 Anion Gap 17 BUN 4 L Creatinine 0.6 L Est GFR ( Amer) > 60 Est GFR (Non-Af Amer) > 60 POC Glucose (mg/dL) Random Glucose 141 H Calcium 9.9 Total Bilirubin 0.3 AST 22 ALT 41 Alkaline Phosphatase 160 H Troponin I < 0.0120 NT-Pro-B Natriuret Pep 72.1 Total Protein 7.1 Albumin 4.2 Globulin 2.9 Albumin/Globulin Ratio 1.4 Arterial Blood Potassium 3.5 L 03/06/18 03/06/18 03/06/18 08:21 10:57 13:57 WBC RBC Hgb Hct MCV MCH MCHC RDW Plt Count MPV Neut % (Auto) Lymph % (Auto) [place] % (Auto) Eos % (Auto) Baso % (Auto) Neut # (Auto) Lymph # (Auto) [place] # (Auto) Eos # (Auto) Baso # (Auto) D-Dimer, Quantitative Puncture Site pCO2 pO2 HCO3 ABG pH ABG Total CO2 ABG O2 Saturation ABG Base Excess Jesus Test ABG Potassium A-a O2 Difference Respiratory Index Glucose Lactate Vent Mode FiO2 Inspiratory BiPAP Expiratory BiPAP Sodium Potassium Chloride Carbon Dioxide Anion Gap BUN Creatinine Est GFR ( Amer) Est GFR (Non-Af Amer) POC Glucose (mg/dL) 217 H 339 H Random Glucose Calcium Total Bilirubin AST ALT Alkaline Phosphatase Troponin I < 0.0120 NT-Pro-B Natriuret Pep Total Protein Albumin Globulin Albumin/Globulin Ratio Arterial Blood Potassium 03/06/18 03/06/18 16:33 17:02 WBC RBC Hgb Hct MCV MCH MCHC RDW Plt Count MPV Neut % (Auto) Lymph % (Auto) [place] % (Auto) Eos % (Auto) Baso % (Auto) Neut # (Auto) Lymph # (Auto) [place] # (Auto) Eos # (Auto) Baso # (Auto) D-Dimer, Quantitative 394 H Puncture Site pCO2 pO2 HCO3 ABG pH ABG Total CO2 ABG O2 Saturation ABG Base Excess Jesus Test ABG Potassium A-a O2 Difference Respiratory Index Glucose Lactate Vent Mode FiO2 Inspiratory BiPAP Expiratory BiPAP Sodium Potassium Chloride Carbon Dioxide Anion Gap BUN Creatinine Est GFR ( Amer) Est GFR (Non-Af Amer) POC Glucose (mg/dL) 235 H Random Glucose Calcium Total Bilirubin AST ALT Alkaline Phosphatase Troponin I NT-Pro-B Natriuret Pep Total Protein Albumin Globulin Albumin/Globulin Ratio Arterial Blood Potassium Assessment & Plan (1) Acute exacerbation of chronic obstructive airways disease Assessment and Plan: IV steroids and nebulizer treatment Anxiolytic BiPAP as needed Status: Acute
--- NOTE | 2018-03-06 23:30 | CP.PCM.HP ---
History of Present Illness - History of Present Illness History of Present Illness: CC: cough, congestion, wheezing x 3 days HPI:Pt is an elderly male with history of advance COPD, steroid induced, diabetes, allergic rhinitis,post herpetic neuralgia, h/o colon v\ cancer stage 1 sp resection colostomy, multiple hospitalizations for COPD exacerbation in past, he is on home oxygen, BIPAP, came in with c/o shortness of breath, generalized weakness, shaking, dull substrenal chest pain, getting worse with coughing Present on Admission - Present on Admission Any Indicators Present on Admission: Yes Review of Systems - Review of Systems Systems not reviewed;Unavailable: Acuity of Condition - Constitutional Constitutional: Fatigue, Lethargy, Malaise - EENT Eyes: absent: As Per HPI, Blind Spots, Blurred Vision, Change in Vision, Decreased Night Vision, Diplopia, Discharge, Dry Eye, Exophthalmos, Floaters, Irritation, Itchy Eyes, Loss of Peripheral Vision, Pain, Photophobia, Requires Corrective Lenses, Sees Flashes, Spots in Vision, Tunnel Vision, Other Visual Disturbances, Loss of Vision, Other Ears: absent: As Per HPI, Decreased Hearing, Ear Discharge, Ear Pain, Tinnitus, Abnormal Hearing, Disequilibrium, Dizziness, Other Nose/Mouth/Throat: Nasal Congestion - Cardiovascular Cardiovascular: Chest Pain, Dyspnea, Leg Edema, Lightheadedness, Slow Heart Rate - Respiratory Respiratory: Cough, Dyspnea, Dyspnea on Exertion, Chest Congestion, Pain with Coughing - Gastrointestinal Gastrointestinal: absent: As Per HPI, Abdominal Pain, Belching, Bloating, Change in Bowel Habits, Change in Stool Character, Coffee Ground Emesis, Constipation, Cramping, Diarrhea, Dyspepsia, Dysphagia, Early Satiety, Excessive Flatus, Fecal Incontinence, Heartburn, Hematemesis, Hematochezia, Loose Stools, Melena, Nausea, Odynophagia, Temesmus, Vomiting, Other - Genitourinary Genitourinary: absent: As Per HPI, Change in Urinary Stream, Difficulty Urinating, Dysuria, Flank Pain, Hematuria, Pyuria, Nocturia, Urinary Incontinence, Urinary Frequency, Urinary Hesitance, Urinary Urgency, Voiding Freq/Small Amts, Freq UTI, Hx Renal/Bladder Calculi, Hx /Renal Surgery, Bladder Distension, Other - Musculoskeletal Musculoskeletal: absent: As Per HPI, Abnormal Gait, Arthralgias, Atrophy, Back Pain, Deformity, Joint Swelling, Limited Range of Motion, Loss of Height, Muscle Cramps, Muscle Weakness, Myalgias, Neck Pain, Numbness, Radiating Pain into Limb, Stiffness, Tingling, Other - Integumentary Integumentary: Dry Skin, Rash - Neurological Neurological: Dizziness, Weakness - Psychiatric Psychiatric: Anxiety - Endocrine Endocrine: absent: As Per HPI, Change in Body Appearance, Change in Libido, Cold Intolorance, Deepening of Voice, Excessive Sweating, Fatigue, Flushing, Heat Intolorance, Increase in Ring/Shoe/Hat Size, Palpitations, Polydipsia, Polyphagia, Polyuria, Other Past Patient History - Infectious Disease Hx of Infectious Diseases: None - Past Medical History & Family History Past Medical History?: Yes - Past Social History Smoking Status: Former Smoker - CARDIAC Hx Cardia Arrhythmia: Yes (SVT) Hx Congestive Heart Failure: Yes Hx Hypercholesterolemia: Yes Hx Hypertension: Yes - PULMONARY Hx Asthma: Yes Hx Bronchitis: Yes Hx Chronic Obstructive Pulmonary Disease (COPD): Yes Hx Emphysema: Yes Hx Pneumonia: Yes Hx Sleep Apnea: Yes (ON DALIRESP) - NEUROLOGICAL Hx Neurological Disorder: No HX Cerebrovascular Accident: No - HEENT Hx HEENT Problems: Yes Hx Cataracts: Yes Hx Deafness: No Hx Difficulty Chewing: No Hx Epistaxis: No Hx Glaucoma: No Hx Macular Degeneration: No Other/Comment: wears eyeglasses for distance - RENAL Hx Chronic Kidney Disease: Yes Hx Kidney Stones: Yes - ENDOCRINE/METABOLIC Hx Endocrine Disorders: Yes Hx Diabetes Mellitus Type 2: Yes - HEMATOLOGICAL/ONCOLOGICAL Hx Anemia: Yes - INTEGUMENTARY Hx Dermatological Problems: Yes Other/Comment: Scattered ecchymosis on both arms. - MUSCULOSKELETAL/RHEUMATOLOGICAL Hx Arthritis: Yes Hx Falls: No - GASTROINTESTINAL Hx Ileostomy: Yes Other/Comment: colostomy right side - GENITOURINARY/GYNECOLOGICAL Hx Genitourinary Disorders: No - PSYCHIATRIC Hx Anxiety: Yes Hx Substance Use: No - SURGICAL HISTORY Hx Surgeries: Yes - ANESTHESIA Hx Anesthesia: Yes Hx Anesthesia Reactions: No Hx Malignant Hyperthermia: No Has any member of the family had a problem w/ anesthesia?: No Meds Allergies/Adverse Reactions: Allergies Allergy/AdvReac Type Severity Reaction Status Date / Time acetaminophen [From Tylenol] Allergy RASH Verified 02/19/18 12:12 FISH Allergy SWELLING Verified 02/19/18 12:12 shrimp Allergy SHORTNESS Verified 02/19/18 12:12 OF BREATH IV dye Allergy Severe ANAPHYLAXIS Uncoded 02/19/18 12:12 Physical Exam - Constitutional Appears: No Acute Distress - Eye Exam Eye Exam: EOMI, Normal appearance, PERRL Pupil Exam: NORMAL ACCOMODATION, PERRL - ENT Exam ENT Exam: Mucous Membranes Moist, Normal Exam - Respiratory Exam Respiratory Exam: Decreased Breath Sounds, Rales, Rhonchi, Wheezes - Cardiovascular Exam Cardiovascular Exam: Tachycardia, REGULAR RHYTHM - GI/Abdominal Exam GI & Abdominal Exam: Normal Bowel Sounds, Soft. absent: Tenderness - Skin Additional comments: thin skin with brusing Results - Vital Signs Recent Vital Signs: Last Vital Signs Temp 98.0 F 03/06/18 15:10 Pulse 117 H 03/06/18 18:00 Resp 18 03/06/18 15:10 BP 103/64 03/06/18 15:10 Pulse Ox 100 03/06/18 19:09 - Labs Result Diagrams: 03/06/18 05:42 03/06/18 05:42 Labs: Laboratory Results - last 24 hr 03/06/18 03/06/18 03/06/18 05:42 05:42 05:50 WBC 11.7 H RBC 4.96 Hgb 10.6 L Hct 33.2 L MCV 66.9 L MCH 21.4 L MCHC 32.0 L RDW 18.9 H Plt Count 324 MPV 7.6 Neut % (Auto) 62.3 Lymph % (Auto) 25.4 [place] % (Auto) 7.9 Eos % (Auto) 3.0 Baso % (Auto) 1.4 Neut # (Auto) 7.3 H Lymph # (Auto) 3.0 [place] # (Auto) 0.9 H Eos # (Auto) 0.3 Baso # (Auto) 0.2 D-Dimer, Quantitative Puncture Site Rr pCO2 46 H pO2 244 H HCO3 25.1 ABG pH 7.36 ABG Total CO2 27.4 ABG O2 Saturation 99.6 H ABG Base Excess 0.1 Jesus Test Pos ABG Potassium 3.5 L A-a O2 Difference -16.0 Respiratory Index -0.1 Glucose 140 H Lactate 1.8 Vent Mode Bipap FiO2 40.0 Inspiratory BiPAP 12 Expiratory BiPAP 6 Sodium 145 141.0 Potassium 4.6 Chloride 105 107.0 Carbon Dioxide 28 Anion Gap 17 BUN 4 L Creatinine 0.6 L Est GFR ( Amer) > 60 Est GFR (Non-Af Amer) > 60 POC Glucose (mg/dL) Random Glucose 141 H Calcium 9.9 Total Bilirubin 0.3 AST 22 ALT 41 Alkaline Phosphatase 160 H Troponin I < 0.0120 NT-Pro-B Natriuret Pep 72.1 Total Protein 7.1 Albumin 4.2 Globulin 2.9 Albumin/Globulin Ratio 1.4 Arterial Blood Potassium 3.5 L 03/06/18 03/06/18 03/06/18 08:21 10:57 13:57 WBC RBC Hgb Hct MCV MCH MCHC RDW Plt Count MPV Neut % (Auto) Lymph % (Auto) [place] % (Auto) Eos % (Auto) Baso % (Auto) Neut # (Auto) Lymph # (Auto) [place] # (Auto) Eos # (Auto) Baso # (Auto) D-Dimer, Quantitative Puncture Site pCO2 pO2 HCO3 ABG pH ABG Total CO2 ABG O2 Saturation ABG Base Excess Jesus Test ABG Potassium A-a O2 Difference Respiratory Index Glucose Lactate Vent Mode FiO2 Inspiratory BiPAP Expiratory BiPAP Sodium Potassium Chloride Carbon Dioxide Anion Gap BUN Creatinine Est GFR ( Amer) Est GFR (Non-Af Amer) POC Glucose (mg/dL) 217 H 339 H Random Glucose Calcium Total Bilirubin AST ALT Alkaline Phosphatase Troponin I < 0.0120 NT-Pro-B Natriuret Pep Total Protein Albumin Globulin Albumin/Globulin Ratio Arterial Blood Potassium 03/06/18 03/06/18 03/06/18 16:33 17:02 21:37 WBC RBC Hgb Hct MCV MCH MCHC RDW Plt Count MPV Neut % (Auto) Lymph % (Auto) [place] % (Auto) Eos % (Auto) Baso % (Auto) Neut # (Auto) Lymph # (Auto) [place] # (Auto) Eos # (Auto) Baso # (Auto) D-Dimer, Quantitative 394 H Puncture Site pCO2 pO2 HCO3 ABG pH ABG Total CO2 ABG O2 Saturation ABG Base Excess Jesus Test ABG Potassium A-a O2 Difference Respiratory Index Glucose Lactate Vent Mode FiO2 Inspiratory BiPAP Expiratory BiPAP Sodium Potassium Chloride Carbon Dioxide Anion Gap BUN Creatinine Est GFR ( Amer) Est GFR (Non-Af Amer) POC Glucose (mg/dL) 235 H 268 H Random Glucose Calcium Total Bilirubin AST ALT Alkaline Phosphatase Troponin I NT-Pro-B Natriuret Pep Total Protein Albumin Globulin Albumin/Globulin Ratio Arterial Blood Potassium Assessment & Plan (1) Acute exacerbation of chronic obstructive airways disease Status: Acute (2) BiPAP (biphasic positive airway pressure) dependence Status: Acute (3) Chest pain Status: Acute Priority: Medium (4) Respiratory distress Status: Acute (5) SOB (shortness of breath) Status: Acute (6) SVT (supraventricular tachycardia) Status: Acute (7) Allergic rhinitis Status: Chronic Priority: Medium (8) Anxiety Status: Chronic (9) Steroid-induced diabetes Status: Chronic
--- NOTE | 2018-03-07 02:29 | CON ---
DATE: 03/06/2018 CARDIOLOGY CONSULTATION REASON FOR CONSULTATION: Chest pain. HISTORY OF PRESENT ILLNESS: The patient is a 67-year-old male who has an extensive medical history including advanced chronic obstructive lung disease, on nasal O2 and at times BiPAP; history of rectal CA, underwent resection followed by ileostomy with difficulty closing the ileostomy few months ago with recurrent admission for a mechanical distal small bowel obstruction. The patient did have a history of DVT following his surgical resection for his rectal carcinoma. The patient presents at this time because of chest pain that . The patient was transferred home for the first time in many months 3 weeks ago and presented back because of his chest discomfort. The patient underwent cardiac catheterization 3 years ago, which revealed unremarkable coronary circulation. SOCIAL HISTORY: This patient is a former smoker. He is , lives with his . MEDICATIONS: Cardizem 60 mg p.o. every 6 hours, Glucophage 500 mg twice a day, Lovenox mg subcutaneous twice a day with one stat dose ordered now, Robitussin 200 mg p.o. every 4 hours p.r.n., Solu-Medrol 40 mg intravenously every 12 hours, Ventolin inhaler 1 puff every 6 hours, Xanax 0.25 mg q.i.d. REVIEW OF SYSTEMS: The patient has history of anxiety. He denies any abdominal pain at this time. He does have both bowel movements and discharge from ileostomy bag. The patient denies any fever or chills. PHYSICAL EXAMINATION: GENERAL: The patient is an elderly male who is mildly tachypneic, on nasal O2, does not appear to be in acute respiratory distress. VITAL SIGNS: Blood pressure 119/67, heart rate 132, temperature 97.5, respirations 23. HEENT: Pale conjunctiva. CHEST: Minimal bilateral rhonchi. HEART: S1 and S2 regular. ABDOMEN: Soft. EXTREMITIES: No pedal edema. No calf tenderness. LABORATORY DATA: SMA-7; sodium 145, potassium 4.6, chloride 105, CO2 of 28, glucose 141, BUN 4, creatinine 0.6. Two sets of troponins are negative. Hemoglobin and hematocrit 10.6 and 33.2, white count 11.7, platelet count 324,000. IMAGING STUDIES: EKG revealed sinus tachycardia at rate of 123. Chest x-ray was unremarkable except for COPD and prominent bronchovascular markings. ASSESSMENT: 1. Chest pain, rule out pulmonary embolism. 2. History of deep venous thrombosis in the recent past. 3. Chronic obstructive lung disease. 4. History of rectal cancer status post surgical resection and ileostomy. CONDITIONS: I did start the patient on therapeutic subcutaneous Lovenox at 40 mg twice a day. I discussed the case with the OVERHEAD DOOR TECHNICIAN and with Dr. Hal Garcia to obtain a stat venous Doppler of the lower extremity which the preliminary report was relayed to me as positive for femoral DVT. The patient should be treated as pulmonary embolism regardless of the outcome of any future ventilation-perfusion scan. The patient has ALLERGY TO INTRAVENOUS CONTRAST and for this reason, a CT angio study would not be considered safe to perform at this time. The patient has numerous risk factors for thromboembolic phenomena including history of cancer, recumbency, and long-term steroid use and IVC filter maybe advisable after surgical evaluation. Obtain an echocardiographic study to evaluate any evidence of acute right ventricular strain pattern. Mukesh Correia MD
[2018-03-07] MEDS: Enoxaparin 80 mg Syringe SC SCH ×2 (03:38→17:42)
[2018-03-07] MEDS: Fluticasone-Salmeterol 250-50mcg Diskus INH SCH ×2 (07:40→19:20)
[2018-03-07] MEDS: Budesonide 0.5 mg/2 ml Inhal Susp UD INH SCH ×2 (07:41→19:20)
[2018-03-07] MEDS: (Novolog) Insulin Aspart, Recombinant 100 u/ml 10 ml vial SC SCH ×4 (08:07→21:38)
--- NOTE | 2018-03-07 11:29 | CARD ---
APPROVED REPORT Date of service: 03/06/2018 EKG Measurement Heart [id number] [place] [id number] [id number] <Conclusion> Sinus tachycardia Nonspecific ST abnormality Abnormal ECG
--- NOTE | 2018-03-07 11:36 | CARD ---
APPROVED REPORT Date of service: 03/06/2018 EKG Measurement Heart [id number] <Conclusion> Supraventricular tachycardia Otherwise normal ECG
[2018-03-07] MEDS: Multiple Vitamins Tab PO SCH (12:02)
[2018-03-07] MEDS: Pantoprazole 40 mg EC Tab PO SCH (12:02)
[2018-03-07] MEDS: MethylPREDNISolone 40 mg Vial IVP SCH ×2 (12:02→21:10)
[2018-03-07 14:11] LABS: INR 1.1; PROTHROMBIN TIME 12.5 SECONDS (9.7-12.2)
--- NOTE | 2018-03-07 14:26 | CARD ---
APPROVED REPORT Date of service: 03/07/2018 EXAM: Two-dimensional and M-mode echocardiogram with Doppler and color Doppler. Other Information Quality : Rhythm : Tachycardia INDICATION Dyspnea CAD Chest Pain Congestive Heart Failure Pneumonia, Anemia, RISK FACTORS Diabetes M-Mode DIMENSIONS RVDd2.50 (2.1-3.2cm)Left Atrium (MM)2.87 (2.5-4.0cm) IVSd0.86 (0.7-1.1cm)Aortic Root3.16 (2.2-3.7cm) LVDd5.27 (4.0-5.6cm)Aortic Cusp Exc.1.88 (1.5-2.0cm) PWd0.90 (0.7-1.1cm)FS (%) 41 % LVDs3.08 (2.0-3.8cm)LVEF (%)72 (>50%) Mitral Valve MV E Efhpcvez12.0cm/sMV A Fjcojuyd449.5cm/sE/A ratio0.7 TDI E/Lateral E'0.0E/Medial E'0.0 Tricuspid Valve TR Peak [id number]/sTR Peak [id number] LEFT VENTRICLE The left ventricle is normal size. There is normal left ventricular wall thickness. The left ventricular function is normal. The left ventricular ejection fraction is within the normal range. No regional wall motion abnormalities noted. Transmitral Doppler flow pattern is Grade I-abnormal relaxation pattern. Left ventricular filling pressure is normal No left ventricle thrombus noted on this study. There is no ventricular septal defect visualized. There is no left ventricular aneurysm. There is no mass noted in the left ventricle. RIGHT VENTRICLE The right ventricle is normal size. There is normal right ventricular wall thickness. The right ventricular systolic function is normal. ATRIA The left atrium size is normal. The right atrium size is normal. The interatrial septum is intact with no evidence for an atrial septal defect. AORTIC VALVE The aortic valve is normal in structure and function. There is trace to mild aortic regurgitation. There is no aortic valvular stenosis. There is no aortic valvular vegetation. MITRAL VALVE The mitral valve is normal in structure and function. There is no evidence of mitral valve prolapse. There is no mitral valve stenosis. There is no mitral valve regurgitation noted. TRICUSPID VALVE The tricuspid valve is normal in structure and function. There is mild tricuspid regurgitation. Right ventricular systolic pressure is estimated at less than 30 mmHg. There is no tricuspid valve prolapse or vegetation. There is no tricuspid valve stenosis. PULMONIC VALVE The pulmonary valve is normal in structure and function. There is no pulmonic valvular regurgitation. There is no pulmonic valvular stenosis. GREAT VESSELS The aortic root is normal in size. The ascending aorta is normal in size. The pulmonary artery is normal. The IVC is normal in size and collapses >50% with inspiration. PERICARDIAL EFFUSION The pericardium appears normal. There is no pleural effusion. <Conclusion> The left ventricular function is normal. The left ventricular ejection fraction is within the normal range. No regional wall motion abnormalities noted. Transmitral Doppler flow pattern is Grade I-abnormal relaxation pattern. Left ventricular filling pressure is normal There is trace to mild aortic regurgitation.
[2018-03-07 14:36] LABS: FREE T4 0.87 ng/dL (0.78-2.19)
--- NOTE | 2018-03-07 17:20 | CP.PCM.PN ---
Subjective - Date & Time of Evaluation Date of Evaluation: 03/07/18 Time of Evaluation: 11:00 - Subjective Subjective: patient seen and examined Breathing better Venous Doppler positive for DVT On Lovenox Afebrile BiPAP at night Objective - Vital Signs/Intake and Output Vital Signs (last 24 hours): Temp Pulse Resp BP Pulse Ox 98 F 110 H 20 104/65 96 03/07/18 15:00 03/07/18 16:46 03/07/18 15:00 03/07/18 15:00 03/07/18 15:00 Intake and Output: 03/07/18 03/07/18 06:59 18:59 Intake Total 300 Output Total 300 Balance -300 300 - Medications Medications: Current Medications Albuterol (Ventolin Hfa 90 Mcg/Actuation (8 G)) 1 puff IH RQ6 PRN PRN Reason: Shortness of Breath Last Admin: 03/06/18 20:26 Dose: 1 inhaler Alprazolam (Xanax) 0.5 mg PO Q12 [facility] Stop: 03/13/18 10:01 Last Admin: 03/07/18 12:02 Dose: 0.5 mg Aspirin (Aspirin Chewable) 81 mg PO DAILY [facility] Last Admin: 03/07/18 12:02 Dose: 81 mg Budesonide (Pulmicort Respules) 0.5 mg INH RQ12 [facility] Last Admin: 03/07/18 07:41 Dose: 0.5 mg Diltiazem HCl (Cardizem) 60 mg PO Q6 [facility] Last Admin: 03/07/18 12:06 Dose: 60 mg Enoxaparin Sodium (Lovenox) 70 mg SC Q12H [facility] Last Admin: 03/07/18 03:38 Dose: 70 mg Guaifenesin (Robitussin) 200 mg PO Q4H PRN PRN Reason: Cough and congestion Last Admin: 03/06/18 09:42 Dose: 200 mg Insulin Aspart (Novolog) 0 unit SC ACHS [facility] PRN Reason: Protocol Last Admin: 03/07/18 12:52 Dose: 3 units Metformin HCl (Glucophage) 500 mg PO BIDCC [facility] Last Admin: 03/07/18 08:09 Dose: 500 mg Methylprednisolone (Solu-Medrol) 40 mg IVP Q12 [facility] Last Admin: 03/07/18 12:02 Dose: 40 mg Morphine Sulfate (Morphine) 2 mg SC Q4 PRN PRN Reason: Pain, severe (8-10) Last Admin: 03/07/18 01:46 Dose: 2 mg Multivitamins (Hexavitamin) 1 tab PO DAILY [facility] Last Admin: 03/07/18 12:02 Dose: 1 tab Pantoprazole Sodium (Protonix Ec Tab) 40 mg PO DAILY [facility] Last Admin: 03/07/18 12:02 Dose: 40 mg Roflumilast (Daliresp) 500 mcg PO DAILY [facility] Last Admin: 03/07/18 13:15 Dose: 500 mcg Fluticasone/Salmeterol (Advair Diskus 250/50) 1 puff INH RQ12 [facility] Last Admin: 03/07/18 07:40 Dose: 1 puff - Labs Labs: 03/06/18 05:42 03/06/18 05:42 PT 12.5 SECONDS (9.7-12.2) H 03/07/18 13:57 INR 1.1 03/07/18 13:57 APTT 31 SECONDS (21-34) 03/07/18 13:57 - Head Exam Head Exam: ATRAUMATIC, NORMOCEPHALIC - ENT Exam ENT Exam: Mucous Membranes Moist - Neck Exam Neck Exam: Normal Inspection - Respiratory Exam Respiratory Exam: Decreased Breath Sounds Assessment and Plan (1) Acute exacerbation of chronic obstructive airways disease Assessment & Plan: continue nebulizer treatment Continue steroids Continue BiPAP Continue anticoagulation Consider IVC filter Status: Acute (2) Dvt femoral (deep venous thrombosis) Status: Acute
--- NOTE | 2018-03-07 18:01 | CON ---
DATE: 03/07/2018 ATTENDING PHYSICIAN: Hal Garcia MD LOCATION: The patient is in room #656, bed B. REASON FOR THE CONSULTATION: Abnormal movement. CHIEF COMPLAINT: The patient was brought into [facility] by his son with a history of chest pain and problem in breathing. During the hospitalization, the patient was found to have tremor in his both hands. From neurological point of view, I was called in to evaluate him for further management. HISTORY OF PRESENTING ILLNESS: Mr. Nathen Lawson is a 67-year-old right-handed elderly-looking Azeri-speaking male presenting with shortness of breath and chest tightness for the last few days and tremor in both hands for the last four days. He has been walking with a walker at present. No abnormal any other movement including dizziness, visual, or bulbar dysfunction. No similar episodes happened in the past. SOCIAL HISTORY: He is a former smoker. No history of alcohol use. MEDICATIONS: Cardizem, Glucophage, Lovenox, Solu-Medrol, Ventolin, and Xanax p.r.n. PAST MEDICAL HISTORY: Rectal cancer, status post colostomy, COPD, and anxiety disorder. REVIEW OF SYSTEMS: Twelve-point system is being reviewed. From neuro, tremor. PHYSICAL EXAMINATION: VITAL SIGNS: Blood pressure 116/77, mean arterial pressure of 90, respiratory rate 18, and temperature 98 degrees Fahrenheit with the pulse rate of 111 sinus, tachycardia. NECK: Supple. No carotid bruits. HEART: Sounds regular. CHEST: Fair air entry. EXTREMITIES: No edema in legs. NEUROLOGICAL: Mental status: He is awake, alert, oriented to person, place, and time. Speech is clear. Naming, repetition, fluency, and comprehension all within normal. Cranial nerve: Visual field respond to visual threat on both sides. Pupil reactive to light. Extraocular movements are normal. No engaged nystagmus. No vertical nystagmus. No facial or sensory deficit. No facial asymmetry. Hearing is normal. Tongue is midline. Good gag. Motor: He could able to lift both upper extremities against the gravity. There is sensory tremor, more pronounced. Asterixis is also keep his hands straight up. The same tremor is also noted in both lower extremities. He could able to move all four extremities against the to gravity. Deep tendon reflex is absent. Plantars are mute. Sensory: He could appreciate position sense. Mild distress, sensory, and motor neuropathy affecting vibration and temperature. Coordination: [id number] dysmetria associating with proportionate to his tremor. Gait is deferred at this time. LABORATORY DATA: Blood workup: WBC 11.7, hemoglobin 10.6, hematocrit 33.2, and platelets 324. D-Dimer is 394. Blood gas; pH is 7.36, pO2 of 244, pCO2 of 46, bicarbonate 27.4 with oxygen saturation of 99.6. Sodium 145, potassium 4.6, chloride 105, bicarbonate 28, BUN 4, creatinine 0.6, GFR more than 60, and glucose 268. Troponin 0.0120. CONCLUSION: Mr. Nathen Lawosn is presenting with the new onset of tremor both the arms and legs associating with asterixis consistent with metabolic versus intracranial pathology. This could be intracranially subcortical mid brain basal ganglia region versus thalamic ischemia versus structural other possible causes. The patient also is suffering from severe sensory motor neuropathy, which is related to his underlying medical problem. RECOMMENDATIONS: 1. MRI of the brain to rule out any structural cause to explain his problem. 2. EEG to rule out any electrographic seizures. 3. Correct electrolytes, check ammonia and ceruloplasmin. 4. Get him out of the bed and physical therapy should be entertained. DVT prophylaxis is agreed. Let him continue as per the recommendation. The patient will be followed closely with you. Taiwo Irizarry MD
--- NOTE | 2018-03-07 18:11 | MRI ---
Date of service: 03/07/2018 PROCEDURE: MRI BRAIN WITHOUT CONTRAST HISTORY: structual pathology - basal ganglia Vs thalamus COMPARISON: None. TECHNIQUE: Multiplanar, multisequence MR images of the brain were obtained without intravenous contrast enhancement. FINDINGS: HEMORRHAGE: None DWI: No evidence of an acute or early subacute infarction. BRAIN PARENCHYMA: No mass effect or edema. There are nonspecific foci of hyperintense T2 and FLAIR signal in the periventricular white matter may represent chronic microvascular ischemic disease. VENTRICLES: Unremarkable. No hydrocephalus. CRANIUM: Unremarkable. ORBITS: There is hyperintense T2 and slightly hyperintense T1 signal with defined lesion noted at the low medial aspect of the right orbit measures 2.3 x 1.8 centimeter may represent dermoid cyst or epidermoid cyst. PARANASAL SINUSES/MASTOIDS: The right maxilla sinus is small in size demonstrate diffuse moderate mucosal thickening likely due to chronic sinusitis P VASCULAR SYSTEM: Skull base flow voids intact. OTHER FINDINGS: There is with defined cysts seen in the midline at the posterior aspect of the posterior fossa likely represent arachnoid cyst measures 2 centimeter in the transverse diameter and 2.3 centimeter in the AP diameter . IMPRESSION: No evidence of acute infarction or acute pathology in the brain. No evidence of mass lesion mass effect or midline shift. Mild periventricular white matter changes may represent chronic microvascular ischemic disease. Well defined hyperintense T1 and T2 signal lesion noted at the medial aspect of the right orbit may represent dermoid or epidermoid cyst. Chronic right maxillary sinusitis.
[2018-03-07] MEDS: Albuterol HFA 90 mcg/actuation (8 g) IH PRN (19:20)
--- NOTE | 2018-03-07 22:49 | CP.PCM.CON ---
History of Present Illness - History of Present Illness History of Present Illness: Vascular Surgery Consult Note for Dr. Nieto 67M w/ PMH of COPD, DM, and h/o colon cancer sp resection colostomy, seen and evaluated at bedside today, consulted for left femoral DVT evidenced by venous doppler ultrasound. Pt is complaining of pain in the left groin and has difficulty ambulating. He is currently on Lovenox. No SOB or chest pain. PMH: see above PSH: colostomy ALL: IV Dye, seafood, tylenol Soc: former smoker, denies alcohol and drugs Review of Systems - Constitutional Constitutional: absent: Chills, Fever, Weakness - EENT Eyes: absent: Blurred Vision, Change in Vision Ears: absent: Ear Discharge, Ear Pain Nose/Mouth/Throat: absent: Nasal Congestion, Nasal Discharge - Cardiovascular Cardiovascular: absent: Chest Pain, Dyspnea - Respiratory Respiratory: Cough. absent: Dyspnea - Gastrointestinal Gastrointestinal: absent: Abdominal Pain, Nausea, Vomiting - Genitourinary Genitourinary: absent: Difficulty Urinating, Dysuria - Musculoskeletal Musculoskeletal: Limited Range of Motion, Radiating Pain into Limb. absent: Joint Swelling - Integumentary Integumentary: absent: Bleeding Lesions, Changing Lesions - Neurological Neurological: absent: Confusion, Dizziness - Psychiatric Psychiatric: Anxiety. absent: Depression Past Patient History - Infectious Disease Hx of Infectious Diseases: None - Past Medical History & Family History Past Medical History?: Yes - Past Social History Smoking Status: Former Smoker - CARDIAC Hx Cardia Arrhythmia: Yes (SVT) Hx Congestive Heart Failure: Yes Hx Hypercholesterolemia: Yes Hx Hypertension: Yes - PULMONARY Hx Asthma: Yes Hx Bronchitis: Yes Hx Chronic Obstructive Pulmonary Disease (COPD): Yes Hx Emphysema: Yes Hx Pneumonia: Yes Hx Sleep Apnea: Yes (ON DALIRESP) - NEUROLOGICAL Hx Neurological Disorder: No HX Cerebrovascular Accident: No - HEENT Hx HEENT Problems: Yes Hx Cataracts: Yes Hx Deafness: No Hx Difficulty Chewing: No Hx Epistaxis: No Hx Glaucoma: No Hx Macular Degeneration: No Other/Comment: wears eyeglasses for distance - RENAL Hx Chronic Kidney Disease: Yes Hx Kidney Stones: Yes - ENDOCRINE/METABOLIC Hx Endocrine Disorders: Yes Hx Diabetes Mellitus Type 2: Yes - HEMATOLOGICAL/ONCOLOGICAL Hx Anemia: Yes - INTEGUMENTARY Hx Dermatological Problems: Yes Other/Comment: Scattered ecchymosis on both arms. - MUSCULOSKELETAL/RHEUMATOLOGICAL Hx Arthritis: Yes Hx Falls: No - GASTROINTESTINAL Hx Ileostomy: Yes Other/Comment: colostomy right side - GENITOURINARY/GYNECOLOGICAL Hx Genitourinary Disorders: No - PSYCHIATRIC Hx Anxiety: Yes Hx Substance Use: No - SURGICAL HISTORY Hx Surgeries: Yes - ANESTHESIA Hx Anesthesia: Yes Hx Anesthesia Reactions: No Hx Malignant Hyperthermia: No Has any member of the family had a problem w/ anesthesia?: No Meds Allergies/Adverse Reactions: Allergies Allergy/AdvReac Type Severity Reaction Status Date / Time acetaminophen [From Tylenol] Allergy RASH Verified 02/19/18 12:12 FISH Allergy SWELLING Verified 02/19/18 12:12 shrimp Allergy SHORTNESS Verified 02/19/18 12:12 OF BREATH IV dye Allergy Severe ANAPHYLAXIS Uncoded 02/19/18 12:12 - Medications Medications: Current Medications Albuterol (Ventolin Hfa 90 Mcg/Actuation (8 G)) 1 puff IH RQ6 PRN PRN Reason: Shortness of Breath Last Admin: 03/07/18 19:20 Dose: 1 inhaler Alprazolam (Xanax) 0.5 mg PO Q12 [facility] Stop: 03/13/18 10:01 Last Admin: 03/07/18 21:10 Dose: 0.5 mg Aspirin (Aspirin Chewable) 81 mg PO DAILY [facility] Last Admin: 03/07/18 12:02 Dose: 81 mg Budesonide (Pulmicort Respules) 0.5 mg INH RQ12 [facility] Last Admin: 03/07/18 19:20 Dose: 0.5 mg Diltiazem HCl (Cardizem) 60 mg PO Q6 [facility] Last Admin: 03/07/18 17:43 Dose: 60 mg Enoxaparin Sodium (Lovenox) 70 mg SC Q12H [facility] Last Admin: 03/07/18 17:42 Dose: 70 mg Guaifenesin (Robitussin) 200 mg PO Q4H PRN PRN Reason: Cough and congestion Last Admin: 03/06/18 09:42 Dose: 200 mg Insulin Aspart (Novolog) 0 unit SC ACHS [facility] PRN Reason: Protocol Last Admin: 03/07/18 21:38 Dose: Not Given Metformin HCl (Glucophage) 500 mg PO BIDCC [facility] Last Admin: 03/07/18 17:43 Dose: 500 mg Methylprednisolone (Solu-Medrol) 40 mg IVP Q12 [facility] Last Admin: 03/07/18 21:10 Dose: 40 mg Morphine Sulfate (Morphine) 2 mg SC Q4 PRN PRN Reason: Pain, severe (8-10) Last Admin: 03/07/18 18:17 Dose: 2 mg Multivitamins (Hexavitamin) 1 tab PO DAILY [facility] Last Admin: 03/07/18 12:02 Dose: 1 tab Pantoprazole Sodium (Protonix Ec Tab) 40 mg PO DAILY [facility] Last Admin: 03/07/18 12:02 Dose: 40 mg Roflumilast (Daliresp) 500 mcg PO DAILY [facility] Last Admin: 03/07/18 13:15 Dose: 500 mcg Fluticasone/Salmeterol (Advair Diskus 250/50) 1 puff INH RQ12 [facility] Last Admin: 03/07/18 19:20 Dose: 1 puff Physical Exam - Constitutional Appears: Well, Non-toxic, No Acute Distress - Head Exam Head Exam: ATRAUMATIC, NORMAL INSPECTION, NORMOCEPHALIC - Eye Exam Eye Exam: EOMI, Normal appearance - Respiratory Exam Respiratory Exam: Clear to Auscultation Bilateral, NORMAL BREATHING PATTERN - Cardiovascular Exam Cardiovascular Exam: REGULAR RHYTHM, +S1, +S2 - GI/Abdominal Exam GI & Abdominal Exam: Normal Bowel Sounds, Soft. absent: Tenderness - Extremities Exam Additional comments: palpable DP and PT pulses Tender over left groin - Neurological Exam Neurological exam: Alert, Oriented x3 - Psychiatric Exam Psychiatric exam: Normal Affect, Normal Mood - Skin Skin Exam: Dry, Intact, Normal Color, Warm Results - Vital Signs Recent Vital Signs: Last Vital Signs Temp 98 F 03/07/18 15:00 Pulse 110 H 03/07/18 16:46 Resp 20 03/07/18 15:00 BP 104/65 03/07/18 15:00 Pulse Ox 96 03/07/18 15:00 - Labs Result Diagrams: 03/06/18 05:42 03/06/18 05:42 Labs: Laboratory Results - last 24 hr 03/07/18 03/07/18 03/07/18 06:22 11:18 13:57 ESR 27 H PT INR APTT POC Glucose (mg/dL) 267 H 297 H Ammonia Free T4 TSH 3rd Generation RPR 03/07/18 03/07/18 03/07/18 13:57 13:57 13:57 ESR PT INR APTT POC Glucose (mg/dL) Ammonia < 9 L Free T4 0.87 TSH 3rd Generation 0.30 L RPR Nonreactive 03/07/18 03/07/18 03/07/18 13:57 16:53 21:20 ESR PT 12.5 H INR 1.1 APTT 31 POC Glucose (mg/dL) 294 H 273 H Ammonia Free T4 TSH 3rd Generation RPR Assessment & Plan - Assessment and Plan (Free Text) Assessment: 67M w/ left femoral DVT Plan: Scheduled for IVC filter placement tomorrow 03/08 NPO, IVF, AM labs Hold anticoagulants Further recs per Dr. Emilia Terry PGY1
[2018-03-07] MEDS: Lactated Ringer's 1,000 ML IV SCH (23:09)
--- NOTE | 2018-03-07 23:29 | PN ---
DATE: 03/07/2018 SUBJECTIVE: The patient's chest pain improved, but did not completely disappear. He is mildly short of breath, on nasal O2. PHYSICAL EXAMINATION: VITAL SIGNS: Blood pressure 104/65, heart rate 108, temperature 98, respirations 20. HEENT: Pale conjunctivae. CHEST: Bilateral rhonchi. HEART: S1, S2. Regular. ABDOMEN: Soft. EXTREMITIES: No edema. Preliminary report venous Doppler of lower extremities is positive for left common femoral vein DVT. Official report is still pending. LABORATORY DATA: Today's blood sugars are 297 and 294. Brain MRI was performed, but the report is still pending. ASSESSMENT: 1. Left common femoral vein deep venous thrombosis and likely pulmonary embolus. 2. Chronic obstructive lung disease. 3. History of rectal cancer, status post resection and ileostomy. 4. Uncontrolled diabetes mellitus. 5. Anemia. RECOMMENDATIONS: Case was discussed with Dr. Hal Garcia, the primary care physician and MISCELLANEOUS MACHINE OPERATOR. Continue current aspirin 81 mg once a day, Cardizem 60 mg every 6 hours, subcutaneous Lovenox 70 mg twice a day, Xanax 0.5 mg p.o. twice a day, Solu-Medrol 40 mg intravenously every 12 hours, Robitussin 200 mg p.o. every 4 hours p.r.n. I will follow brain MRI report. Mukesh Correia MD
--- NOTE | 2018-03-07 23:41 | CP.PCM.PN ---
Subjective - Date & Time of Evaluation Date of Evaluation: 03/07/18 Time of Evaluation: 20:40 - Subjective Subjective: patient seen and examined Breathing better Venous Doppler positive for DVT On Lovenox Afebrile BiPAP at night On IVC filter pt cannot have CAT scan Objective - Vital Signs/Intake and Output Vital Signs (last 24 hours): Temp Pulse Resp BP Pulse Ox 98 F 110 H 20 104/65 96 03/07/18 15:00 03/07/18 16:46 03/07/18 15:00 03/07/18 15:00 03/07/18 15:00 Intake and Output: 03/07/18 03/08/18 18:59 06:59 Intake Total 300 420 Output Total 300 Balance 300 120 - Medications Medications: Current Medications Albuterol (Ventolin Hfa 90 Mcg/Actuation (8 G)) 1 puff IH RQ6 PRN PRN Reason: Shortness of Breath Last Admin: 03/07/18 19:20 Dose: 1 inhaler Alprazolam (Xanax) 0.5 mg PO Q12 [facility] Stop: 03/13/18 10:01 Last Admin: 03/07/18 21:10 Dose: 0.5 mg Aspirin (Aspirin Chewable) 81 mg PO DAILY [facility] Last Admin: 03/07/18 12:02 Dose: 81 mg Budesonide (Pulmicort Respules) 0.5 mg INH RQ12 [facility] Last Admin: 03/07/18 19:20 Dose: 0.5 mg Diltiazem HCl (Cardizem) 60 mg PO Q6 [facility] Last Admin: 03/07/18 17:43 Dose: 60 mg Enoxaparin Sodium (Lovenox) 70 mg SC Q12H [facility] Last Admin: 03/07/18 17:42 Dose: 70 mg Guaifenesin (Robitussin) 200 mg PO Q4H PRN PRN Reason: Cough and congestion Last Admin: 03/06/18 09:42 Dose: 200 mg Lactated Ringer's (Lactated Ringer's) 1,000 mls @ 75 mls/hr IV .[id number] [facility] Last Admin: 03/07/18 23:09 Dose: 75 mls/hr Insulin Aspart (Novolog) 0 unit SC ACHS [facility] PRN Reason: Protocol Last Admin: 03/07/18 21:38 Dose: Not Given Metformin HCl (Glucophage) 500 mg PO BIDCC [facility] Last Admin: 03/07/18 17:43 Dose: 500 mg Methylprednisolone (Solu-Medrol) 40 mg IVP Q12 [facility] Last Admin: 03/07/18 21:10 Dose: 40 mg Morphine Sulfate (Morphine) 2 mg SC Q4 PRN PRN Reason: Pain, severe (8-10) Last Admin: 03/07/18 18:17 Dose: 2 mg Multivitamins (Hexavitamin) 1 tab PO DAILY [facility] Last Admin: 03/07/18 12:02 Dose: 1 tab Pantoprazole Sodium (Protonix Ec Tab) 40 mg PO DAILY [facility] Last Admin: 03/07/18 12:02 Dose: 40 mg Roflumilast (Daliresp) 500 mcg PO DAILY [facility] Last Admin: 03/07/18 13:15 Dose: 500 mcg Fluticasone/Salmeterol (Advair Diskus 250/50) 1 puff INH RQ12 [facility] Last Admin: 03/07/18 19:20 Dose: 1 puff - Labs Labs: 03/06/18 05:42 03/06/18 05:42 PT 12.5 SECONDS (9.7-12.2) H 03/07/18 13:57 INR 1.1 03/07/18 13:57 APTT 31 SECONDS (21-34) 03/07/18 13:57 - Constitutional Appears: No Acute Distress - Head Exam Head Exam: ATRAUMATIC, NORMAL INSPECTION, NORMOCEPHALIC - Eye Exam Eye Exam: EOMI, Normal appearance, PERRL Pupil Exam: NORMAL ACCOMODATION, PERRL - ENT Exam ENT Exam: Mucous Membranes Moist, Normal Exam - Respiratory Exam Respiratory Exam: Clear to Ausculation Bilateral, NORMAL BREATHING PATTERN - Cardiovascular Exam Cardiovascular Exam: REGULAR RHYTHM, +S1, +S2. absent: Murmur - GI/Abdominal Exam GI & Abdominal Exam: Soft, Normal Bowel Sounds. absent: Tenderness Assessment and Plan (1) Acute exacerbation of chronic obstructive airways disease Status: Acute (2) BiPAP (biphasic positive airway pressure) dependence Status: Acute (3) Chest pain Status: Acute (4) Respiratory distress Status: Acute (5) SOB (shortness of breath) Status: Acute (6) SVT (supraventricular tachycardia) Status: Acute (7) Allergic rhinitis Status: Chronic (8) Anxiety Status: Chronic (9) Steroid-induced diabetes Status: Chronic
[2018-03-08 05:12] LABS: MEAN CELL VOLUME 66.1 fL (80.0-94.0); MEAN CORPUSCULAR HEMOGLOBIN 21.1 pg (27.0-31.0); MEAN CORPUSCULAR HGB CONC 31.9 g/dL (33.0-37.0); RBC 4.27 Mil/uL (4.40-5.90); RED CELL DISTRIBUTION WIDTH 18.5 % (11.5-14.5); WHITE BLOOD COUNT 10.4 K/uL (4.8-10.8)
[2018-03-08 05:18] LABS: INR 1.1; PROTHROMBIN TIME 11.6 SECONDS (9.7-12.2)
[2018-03-08 05:57] LABS: BLOOD UREA NITROGEN 10 mg/dL (9-20); GFR AFRICAN-AMERICAN > 60; GFR NON-AFRICAN AMERICAN > 60
[2018-03-08] MEDS: (Novolog) Insulin Aspart, Recombinant 100 u/ml 10 ml vial SC SCH ×4 (07:44→21:49)
[2018-03-08] MEDS: Budesonide 0.5 mg/2 ml Inhal Susp UD INH SCH ×2 (07:48→20:07)
[2018-03-08] MEDS: Fluticasone-Salmeterol 250-50mcg Diskus INH SCH ×2 (07:48→20:09)
[2018-03-08] MEDS: Pantoprazole 40 mg EC Tab PO SCH (09:55)
[2018-03-08] MEDS: MethylPREDNISolone 40 mg Vial IVP SCH (09:55)
[2018-03-08] MEDS: Multiple Vitamins Tab PO SCH (09:55)
[2018-03-08 10:22] LABS: CERULOPLASMIN 23 mg/dL (18-36)
--- NOTE | 2018-03-08 10:49 | VASCLAB ---
Date of service: 03/06/2018 PROCEDURE: Lower Extremity Venous Duplex Exam. HISTORY: Leg pain PRIORS: None. TECHNIQUE: Bilateral common femoral, femoral, popliteal and posterior tibial, peroneal and great saphenous veins were evaluated. Flow was assessed with color Doppler, compressibility, assessment of phasic flow and augmentation response. Report prepared by Guillermo Gayle, TORREY, RVT FINDINGS: RIGHT: 1. Common Femoral Vein: 1.1. Compressibility - Fully compressible: Thrombus - None : Flow - Phasic: Augmentation -Normal: Reflux - None. 2. Femoral Vein: 2.1. Compressibility - Fully compressible: Thrombus - None : Flow - Phasic: Augmentation -Normal: Reflux - None. 3. Popliteal Vein: 3.1. Compressibility - Fully compressible: Thrombus - None : Flow - Phasic: Augmentation -Normal: Reflux - None. 4. Posterior Tibial Vein: 4.1. Compressibility - Fully compressible: Thrombus - None: Flow - Phasic: Augmentation -Normal: Reflux - None. 5. Peroneal Vein: 5.1. Compressibility - Fully compressible: Thrombus - None: Flow - Phasic: Augmentation -Normal: Reflux - None. 6. Great Saphenous Vein: 6.1. Compressibility - Fully compressible: Thrombus - None: Flow - Phasic: Augmentation - Normal: Reflux - None. LEFT: 1. Common Femoral Vein: 1.1. Compressibility - Fully compressible: Thrombus - None: Flow - Phasic: Augmentation -Normal: Reflux - None. 2. Femoral Vein: 2.1. Compressibility - Partial: Thrombus - Acute: Flow - Reduced : Augmentation -Reduced: Reflux - None. 3. Popliteal Vein: 3.1. Compressibility - Fully compressible: Thrombus - None : Flow - Phasic: Augmentation -Normal: Reflux - None. 4. Posterior Tibial Vein: 4.1. Compressibility - Fully compressible: Thrombus - None: Flow - Phasic: Augmentation -Normal: Reflux - None. 5. Peroneal Vein: 5.1. Compressibility - Fully compressible: Thrombus - None: Flow - Phasic: Augmentation -Normal: Reflux - None. 6. Great Saphenous Vein: 6.1. Compressibility - Fully compressible: Thrombus - None: Flow - Phasic: Augmentation - Normal: Reflux - None. OTHER FINDINGS: IAM Sanchez notified about the findings. IMPRESSION: Right: No evidence of deep or superficial vein thrombosis of the right lower extremity. Normal valve function noted of the right side. Left: Acute thrombosis of the left femoral vein with severe reduction of the venous return.
--- NOTE | 2018-03-08 11:23 | CP.PCM.PN ---
Subjective - Date & Time of Evaluation Date of Evaluation: 03/08/18 Time of Evaluation: 09:20 - Subjective Subjective: Patient seen and examined Breathing better Using BiPAP For IVC filter placement On anticoagulation Objective - Vital Signs/Intake and Output Vital Signs (last 24 hours): Temp Pulse Resp BP Pulse Ox 97.6 F 93 H 20 104/64 100 03/08/18 07:00 03/08/18 07:00 03/08/18 07:00 03/08/18 07:00 03/08/18 07:00 Intake and Output: 03/08/18 03/08/18 06:59 18:59 Intake Total 420 600 Output Total 300 800 Balance 120 -200 - Medications Medications: Current Medications Albuterol (Ventolin Hfa 90 Mcg/Actuation (8 G)) 1 puff IH RQ6 PRN PRN Reason: Shortness of Breath Last Admin: 03/07/18 19:20 Dose: 1 inhaler Alprazolam (Xanax) 0.5 mg PO Q12 [facility] Stop: 03/13/18 10:01 Last Admin: 03/08/18 09:55 Dose: 0.5 mg Aspirin (Aspirin Chewable) 81 mg PO DAILY [facility] Last Admin: 03/08/18 09:55 Dose: Not Given Budesonide (Pulmicort Respules) 0.5 mg INH RQ12 [facility] Last Admin: 03/08/18 07:48 Dose: 0.5 mg Diltiazem HCl (Cardizem) 60 mg PO Q6 [facility] Last Admin: 03/08/18 05:30 Dose: 60 mg Enoxaparin Sodium (Lovenox) 70 mg SC Q12H [facility] Last Admin: 03/07/18 17:42 Dose: 70 mg Guaifenesin (Robitussin) 200 mg PO Q4H PRN PRN Reason: Cough and congestion Last Admin: 03/06/18 09:42 Dose: 200 mg Lactated Ringer's (Lactated Ringer's) 1,000 mls @ 75 mls/hr IV .[id number] [facility] Last Admin: 03/07/18 23:09 Dose: 75 mls/hr Insulin Aspart (Novolog) 0 unit SC ACHS [facility] PRN Reason: Protocol Last Admin: 03/08/18 07:44 Dose: Not Given Metformin HCl (Glucophage) 500 mg PO BIDCC [facility] Last Admin: 03/08/18 08:20 Dose: 500 mg Methylprednisolone (Solu-Medrol) 40 mg IVP Q12 [facility] Last Admin: 03/08/18 09:55 Dose: 40 mg Morphine Sulfate (Morphine) 2 mg SC Q4 PRN PRN Reason: Pain, severe (8-10) Last Admin: 03/08/18 05:28 Dose: 2 mg Multivitamins (Hexavitamin) 1 tab PO DAILY [facility] Last Admin: 03/08/18 09:55 Dose: 1 tab Pantoprazole Sodium (Protonix Ec Tab) 40 mg PO DAILY [facility] Last Admin: 03/08/18 09:55 Dose: 40 mg Roflumilast (Daliresp) 500 mcg PO DAILY [facility] Last Admin: 03/08/18 09:55 Dose: 500 mcg Fluticasone/Salmeterol (Advair Diskus 250/50) 1 puff INH RQ12 [facility] Last Admin: 03/08/18 07:48 Dose: Not Given - Labs Labs: 03/08/18 05:01 03/08/18 05:01 PT 11.6 SECONDS (9.7-12.2) 03/08/18 05:01 INR 1.1 03/08/18 05:01 APTT 28 SECONDS (21-34) 03/08/18 05:01 - Head Exam Head Exam: ATRAUMATIC, NORMOCEPHALIC - Eye Exam Eye Exam: Normal appearance - ENT Exam ENT Exam: Mucous Membranes Moist - Neck Exam Neck Exam: Normal Inspection - Respiratory Exam Respiratory Exam: Decreased Breath Sounds - Cardiovascular Exam Cardiovascular Exam: REGULAR RHYTHM - GI/Abdominal Exam GI & Abdominal Exam: Soft Assessment and Plan (1) Acute exacerbation of chronic obstructive airways disease Assessment & Plan: Continue present treatment Status: Acute (2) Dvt femoral (deep venous thrombosis) Assessment & Plan: for IVC filter Continue anticoagulation Status: Acute
--- NOTE | 2018-03-08 12:02 | PN ---
DATE: 03/08/2018 TIME OF EVALUATION: 07:10 a.m. NEUROLOGICAL PROBLEM: Tremor. PHYSICAL EXAMINATION: VITAL SIGNS: Blood pressure 122/73, mean arterial pressure of 89, respiratory rate 18, temperature 97.4, pulse rate 102. NEUROLOGICAL: The patient is awake, alert, oriented to person, place and time. His speech is clear. The patient slept good. He moves all four extremities as per the command. There is still persistent tremor; however, less intense than yesterday. No asterixis. WORKUP: MRI of the brain been reviewed, shows a small vessel disease. No acute pathology is noted. Blood workup; WBC 10.4, hemoglobin 9, hematocrit 28.2, platelets 307. [employer] 11.6, INR 1.1, PTT 28. Sodium 138, potassium 4.3, chloride 100, bicarbonate 26, BUN 10, creatinine 0.6 with GFR more than 60, glucose 285. RPR nonreactive. TSH is 0.30. Ammonia level is less than 9. ASSESSMENT AND PLAN: Mr. Nathen Lawson has been presenting with tremor. This is probably secondary to his underlying diabetes mellitus associating with peripheral neuropathy, which is superimposed with metabolic event and of iatrogenic medication. The patient does not show any structural cause for his tremor at present. Continue the present management. Taiwo Irizarry MD
[2018-03-08] MEDS ORDERED: Iodixanol 320 MG/ML 200 ML BOTTLE IV ONE (12:45)
[2018-03-08] MEDS ORDERED: HEPARIN-NS 5,000 UNITS/500 ML 5,000 UNIT/500 ML BAG IV ONE (12:45)
[2018-03-08] MEDS ORDERED: ceFAZolin IV 1 gm in Dextrose 1 GM/50 ML BAG IVPB ONE (12:45)
[2018-03-08] MEDS ORDERED: Lidocaine 2% MPF (5 ml) Inj ONE (12:45)
[2018-03-08] MEDS ORDERED: Midazolam 2 MG/2 ML VIAL ONE (13:21)
[2018-03-08] MEDS: Lactated Ringer's 1,000 ML IV SCH (13:47)
--- NOTE | 2018-03-08 14:04 | PCM.SURG1 ---
Surgeon's Initial Post Op Note - Surgeon's Notes Surgeon: Dr. Nieto Mechanical Technologist: Dr. Crespo PGY3, Ashish Amador S-III Type of Anesthesia: IV Sedation Pre-Operative Diagnosis: hx of PE, failed therapy Operative Findings: see operative report Post-Operative Diagnosis: see operative report Operation Performed: IVC filter placement Specimen/Specimens Removed: none Estimated Blood Loss: EBL {In ML}: 0 Blood Products Given: N/A Drains Used: No Drains Post-Op Condition: Good Date of Surgery/Procedure: 03/08/18 Time of Surgery/Procedure: 13:45
[2018-03-08] MEDS: Ferric Sodium Gluconat Complex 62.5 mg/5 ml Vial IVPB SCH (14:09)
--- NOTE | 2018-03-08 14:34 | RAD ---
Date of service: 03/08/2018 PROCEDURE: Intraoperative fluoroscopy HISTORY: DVT COMPARISON: Not available TECHNIQUE: Intraoperative fluoroscopy was provided for placement of an inferior vena caval filter. Total time of fluoroscopy was 56.2 seconds. Cumulative dose was 19.24 mGy. FINDINGS: Multiple fluoroscopic spot films are obtained demonstrating sequential images during inferior vena caval filter placement. IMPRESSION: Fluoroscopy provided.
[2018-03-08] MEDS ORDERED: Rocuronium 10 mg/ml (5 ml) ONE (17:22)
--- NOTE | 2018-03-08 22:13 | PN ---
DATE: 03/08/2018 SUBJECTIVE: The patient underwent IVC filter placement today. He is comfortable in bed and no reported bleeding, and he denies any chest pain. PHYSICAL EXAMINATION: VITAL SIGNS: Blood pressure 106/66, heart rate 90, temperature 97.2, respirations 20. HEENT: Pale conjunctiva. CHEST: Minimal rhonchi. HEART: S1 and S2, regular. EXTREMITIES: No edema. No hematoma. LABORATORY DATA: Today's hemoglobin and hematocrit 9 and 28.2, white count 10.4, platelet count 307,000. Today's SMA-7 is within normal limit except for glucose of 323 and creatinine of 0.6. Official report of venous Doppler of lower extremity: Acute thrombus of the left femoral vein with severe reduction of the venous return. Brain MRI report: No evidence of acute infarction or acute pathology in the brain. ASSESSMENT: 1. Left femoral vein deep venous thrombosis with presumptive pulmonary embolism. 2. History of rectal cancer, status post resection and ileostomy. 3. Hypertension. 4. Uncontrolled diabetes mellitus. 5. Chronic obstructive lung disease. RECOMMENDATIONS: Continue current Cardizem at 60 mg every 6 hours, Eliquis 5 mg orally twice a day, Glucophage at 1 g twice a day. Discontinue subcutaneous Lovenox. Continue Solu-Medrol 40 mg intravenously every 12 hours, Robitussin 200 mg p.o. every 4 hours p.r.n., and albuterol inhaler 1 puff every 6 hours p.r.n. Mukesh Correia MD
[2018-03-09] MEDS: Lactated Ringer's 1,000 ML IV SCH ×2 (01:40→05:27)
[2018-03-09] MEDS: Enoxaparin 80 mg Syringe SC SCH (04:30)
[2018-03-09] MEDS: (Novolog) Insulin Aspart, Recombinant 100 u/ml 10 ml vial SC SCH ×4 (07:29→21:35)
[2018-03-09] MEDS: Fluticasone-Salmeterol 250-50mcg Diskus INH SCH ×2 (07:31→19:18)
[2018-03-09] MEDS: Budesonide 0.5 mg/2 ml Inhal Susp UD INH SCH ×2 (07:31→19:18)
[2018-03-09] MEDS: Albuterol HFA 90 mcg/actuation (8 g) IH PRN (07:32)
--- NOTE | 2018-03-09 08:24 | CP.PCM.PN ---
Subjective - Date & Time of Evaluation Date of Evaluation: 03/09/18 Time of Evaluation: 07:00 - Subjective Subjective: Patient seen and examined. No acute events over night. No sign of groin hematoma. No complaints. Objective - Vital Signs/Intake and Output Vital Signs (last 24 hours): Temp Pulse Resp BP Pulse Ox 97.4 F L 85 20 112/70 99 03/09/18 08:14 03/09/18 08:14 03/09/18 08:14 03/09/18 08:14 03/09/18 08:14 Intake and Output: 03/09/18 03/09/18 06:59 18:59 Intake Total 1800 Output Total 2100 Balance -300 - Medications Medications: Current Medications Albuterol (Ventolin Hfa 90 Mcg/Actuation (8 G)) 1 puff IH RQ6 PRN PRN Reason: Shortness of Breath Last Admin: 03/09/18 07:32 Dose: 1 inhaler Alprazolam (Xanax) 0.5 mg PO Q12 [facility] Stop: 03/13/18 10:01 Last Admin: 03/08/18 22:33 Dose: 0.5 mg Apixaban (Eliquis) 5 mg PO BID [facility] Last Admin: 03/08/18 17:37 Dose: 5 mg Aspirin (Aspirin Chewable) 81 mg PO DAILY [facility] Last Admin: 03/08/18 09:55 Dose: Not Given Budesonide (Pulmicort Respules) 0.5 mg INH RQ12 [facility] Last Admin: 03/09/18 07:31 Dose: 0.5 mg Diltiazem HCl (Cardizem) 60 mg PO Q6 [facility] Last Admin: 03/09/18 05:20 Dose: 60 mg Enoxaparin Sodium (Lovenox) 70 mg SC Q12H [facility] Last Admin: 03/09/18 04:30 Dose: 70 mg Ferric Sodium Gluconate Complex (Ferrlecit) 125 mg IVPB DAILY [facility] Stop: 03/16/18 13:01 Last Admin: 03/08/18 14:09 Dose: Not Given Guaifenesin (Robitussin) 200 mg PO Q4H PRN PRN Reason: Cough and congestion Last Admin: 03/06/18 09:42 Dose: 200 mg Lactated Ringer's (Lactated Ringer's) 1,000 mls @ 75 mls/hr IV .[id number] [facility] Last Admin: 03/09/18 05:27 Dose: 75 mls/hr Insulin Aspart (Novolog) 0 unit SC ACHS [facility] PRN Reason: Protocol Last Admin: 03/09/18 07:29 Dose: Not Given Metformin HCl (Glucophage) 1,000 mg PO BIDCC [facility] Last Admin: 03/08/18 17:37 Dose: 1,000 mg Methylprednisolone (Solu-Medrol) 40 mg IVP DAILY [facility] Morphine Sulfate (Morphine) 2 mg IV Q4 PRN PRN Reason: Pain, severe (8-10) Last Admin: 03/09/18 05:24 Dose: 2 mg Multivitamins (Hexavitamin) 1 tab PO DAILY [facility] Last Admin: 03/08/18 09:55 Dose: 1 tab Pantoprazole Sodium (Protonix Ec Tab) 40 mg PO DAILY [facility] Last Admin: 03/08/18 09:55 Dose: 40 mg Roflumilast (Daliresp) 500 mcg PO DAILY [facility] Last Admin: 03/08/18 09:55 Dose: 500 mcg Fluticasone/Salmeterol (Advair Diskus 250/50) 1 puff INH RQ12 [facility] Last Admin: 03/09/18 07:31 Dose: 1 puff - Labs Labs: 03/08/18 05:01 03/08/18 05:01 PT 11.6 SECONDS (9.7-12.2) 03/08/18 05:01 INR 1.1 03/08/18 05:01 APTT 28 SECONDS (21-34) 03/08/18 05:01 - Constitutional Appears: No Acute Distress - Head Exam Head Exam: NORMOCEPHALIC - Eye Exam Eye Exam: EOMI, Normal appearance - ENT Exam ENT Exam: Mucous Membranes Moist - Respiratory Exam Respiratory Exam: NORMAL BREATHING PATTERN - Cardiovascular Exam Cardiovascular Exam: +S1, +S2 - GI/Abdominal Exam GI & Abdominal Exam: Soft - Neurological Exam Neurological Exam: Alert, Awake, Oriented x3 - Psychiatric Exam Psychiatric exam: Normal Mood - Skin Skin Exam: Dry, Intact, Warm Assessment and Plan - Assessment and Plan (Free Text) Assessment: 67M s/p IVC filter placement POD1 Plan: No groin hematoma noted Resume diet Medical management per primary team No further surgical intervention required at this present time D/w Dr. Emilia Roach PGY3
[2018-03-09] MEDS: Ferric Sodium Gluconat Complex 62.5 mg/5 ml Vial IVPB SCH (08:59)
[2018-03-09] MEDS: guaiFENesin 200 mg/10 ml Syrup UD PO PRN (09:00)
[2018-03-09] MEDS: Pantoprazole 40 mg EC Tab PO SCH (09:00)
[2018-03-09] MEDS: Multiple Vitamins Tab PO SCH (09:00)
--- NOTE | 2018-03-09 09:40 | CP.PCM.PN ---
Subjective - Date & Time of Evaluation Date of Evaluation: 03/09/18 Time of Evaluation: 09:25 - Subjective Subjective: patient seen and examined Status post IVC filter placement The shortness of breath Afebrile No chest pain Continue anticoagulation Objective - Vital Signs/Intake and Output Vital Signs (last 24 hours): Temp Pulse Resp BP Pulse Ox 97.4 F L 85 20 112/70 99 03/09/18 08:14 03/09/18 08:14 03/09/18 08:14 03/09/18 08:14 03/09/18 08:14 Intake and Output: 03/09/18 03/09/18 06:59 18:59 Intake Total 1800 Output Total 2100 Balance -300 - Medications Medications: Current Medications Albuterol (Ventolin Hfa 90 Mcg/Actuation (8 G)) 1 puff IH RQ6 PRN PRN Reason: Shortness of Breath Last Admin: 03/09/18 07:32 Dose: 1 inhaler Alprazolam (Xanax) 0.5 mg PO Q12 [facility] Stop: 03/13/18 10:01 Last Admin: 03/09/18 09:04 Dose: 0.5 mg Apixaban (Eliquis) 5 mg PO BID [facility] Last Admin: 03/09/18 09:00 Dose: 5 mg Aspirin (Aspirin Chewable) 81 mg PO DAILY [facility] Last Admin: 03/09/18 09:00 Dose: 81 mg Budesonide (Pulmicort Respules) 0.5 mg INH RQ12 [facility] Last Admin: 03/09/18 07:31 Dose: 0.5 mg Diltiazem HCl (Cardizem) 60 mg PO Q6 [facility] Last Admin: 03/09/18 05:20 Dose: 60 mg Enoxaparin Sodium (Lovenox) 70 mg SC Q12H [facility] Last Admin: 03/09/18 04:30 Dose: 70 mg Ferric Sodium Gluconate Complex (Ferrlecit) 125 mg IVPB DAILY [facility] Stop: 03/16/18 13:01 Last Admin: 03/09/18 08:59 Dose: 125 mg Guaifenesin (Robitussin) 200 mg PO Q4H PRN PRN Reason: Cough and congestion Last Admin: 03/09/18 09:00 Dose: 200 mg Lactated Ringer's (Lactated Ringer's) 1,000 mls @ 75 mls/hr IV .[id number] [facility] Last Admin: 03/09/18 05:27 Dose: 75 mls/hr Insulin Aspart (Novolog) 0 unit SC ACHS [facility] PRN Reason: Protocol Last Admin: 03/09/18 07:29 Dose: Not Given Metformin HCl (Glucophage) 1,000 mg PO BIDCC [facility] Last Admin: 03/09/18 09:00 Dose: 1,000 mg Methylprednisolone (Solu-Medrol) 40 mg IVP DAILY [facility] Last Admin: 03/09/18 09:06 Dose: 40 mg Morphine Sulfate (Morphine) 2 mg IV Q4 PRN PRN Reason: Pain, severe (8-10) Last Admin: 03/09/18 05:24 Dose: 2 mg Multivitamins (Hexavitamin) 1 tab PO DAILY [facility] Last Admin: 03/09/18 09:00 Dose: 1 tab Pantoprazole Sodium (Protonix Ec Tab) 40 mg PO DAILY [facility] Last Admin: 03/09/18 09:00 Dose: 40 mg Roflumilast (Daliresp) 500 mcg PO DAILY [facility] Last Admin: 03/09/18 09:09 Dose: 500 mcg Fluticasone/Salmeterol (Advair Diskus 250/50) 1 puff INH RQ12 [facility] Last Admin: 03/09/18 07:31 Dose: 1 puff - Labs Labs: 03/08/18 05:01 03/08/18 05:01 PT 11.6 SECONDS (9.7-12.2) 03/08/18 05:01 INR 1.1 03/08/18 05:01 APTT 28 SECONDS (21-34) 03/08/18 05:01 Assessment and Plan (1) Acute exacerbation of chronic obstructive airways disease Status: Acute (2) Dvt femoral (deep venous thrombosis) Status: Acute
[2018-03-09] MEDS ORDERED: MethylPREDNISolone 40 mg Vial IVP SCH (10:00)
--- NOTE | 2018-03-09 15:00 | CP.PCM.PN ---
Subjective - Date & Time of Evaluation Date of Evaluation: 03/08/18 Time of Evaluation: 18:30 - Subjective Subjective: pt seen and examined Objective - Vital Signs/Intake and Output Vital Signs (last 24 hours): Temp Pulse Resp BP Pulse Ox 97.4 F L 113 H 20 112/70 99 03/09/18 08:14 03/09/18 13:25 03/09/18 08:14 03/09/18 08:14 03/09/18 08:14 Intake and Output: 03/09/18 03/09/18 06:59 18:59 Intake Total 1800 400 Output Total 2100 1100 Balance -300 -700 - Medications Medications: Current Medications Albuterol (Ventolin Hfa 90 Mcg/Actuation (8 G)) 1 puff IH RQ6 PRN PRN Reason: Shortness of Breath Last Admin: 03/09/18 07:32 Dose: 1 inhaler Alprazolam (Xanax) 0.5 mg PO Q12 [facility] Stop: 03/13/18 10:01 Last Admin: 03/09/18 09:04 Dose: 0.5 mg Apixaban (Eliquis) 5 mg PO BID [facility] Last Admin: 03/09/18 09:00 Dose: 5 mg Aspirin (Aspirin Chewable) 81 mg PO DAILY [facility] Last Admin: 03/09/18 09:00 Dose: 81 mg Budesonide (Pulmicort Respules) 0.5 mg INH RQ12 [facility] Last Admin: 03/09/18 07:31 Dose: 0.5 mg Diltiazem HCl (Cardizem) 60 mg PO Q6 [facility] Last Admin: 03/09/18 12:25 Dose: 60 mg Ferric Sodium Gluconate Complex (Ferrlecit) 125 mg IVPB DAILY [facility] Stop: 03/16/18 13:01 Last Admin: 03/09/18 08:59 Dose: 125 mg Guaifenesin (Robitussin) 200 mg PO Q4H PRN PRN Reason: Cough and congestion Last Admin: 03/09/18 09:00 Dose: 200 mg Insulin Aspart (Novolog) 0 unit SC ACHS [facility] PRN Reason: Protocol Last Admin: 03/09/18 12:24 Dose: 2 units Metformin HCl (Glucophage) 1,000 mg PO BIDCC [facility] Last Admin: 03/09/18 09:00 Dose: 1,000 mg Morphine Sulfate (Morphine) 2 mg IV Q4 PRN PRN Reason: Pain, severe (8-10) Last Admin: 03/09/18 10:44 Dose: 2 mg Multivitamins (Hexavitamin) 1 tab PO DAILY [facility] Last Admin: 03/09/18 09:00 Dose: 1 tab Pantoprazole Sodium (Protonix Ec Tab) 40 mg PO DAILY [facility] Last Admin: 03/09/18 09:00 Dose: 40 mg Prednisone (Prednisone Tab) 20 mg PO DAILY [facility] Roflumilast (Daliresp) 500 mcg PO DAILY [facility] Last Admin: 03/09/18 09:09 Dose: 500 mcg Fluticasone/Salmeterol (Advair Diskus 250/50) 1 puff INH RQ12 [facility] Last Admin: 03/09/18 07:31 Dose: 1 puff - Labs Labs: 03/08/18 05:01 03/08/18 05:01 PT 11.6 SECONDS (9.7-12.2) 03/08/18 05:01 INR 1.1 03/08/18 05:01 APTT 28 SECONDS (21-34) 03/08/18 05:01 Assessment and Plan (1) Acute exacerbation of chronic obstructive airways disease Status: Acute (2) BiPAP (biphasic positive airway pressure) dependence Status: Acute (3) Chest pain Status: Acute (4) Respiratory distress Status: Acute (5) SOB (shortness of breath) Status: Acute (6) SVT (supraventricular tachycardia) Status: Acute (7) Allergic rhinitis Status: Chronic (8) Anxiety Status: Chronic (9) Steroid-induced diabetes Status: Chronic
--- NOTE | 2018-03-09 15:01 | CP.PCM.PN ---
Subjective - Date & Time of Evaluation Date of Evaluation: 03/09/18 Time of Evaluation: 20:40 - Subjective Subjective: patient seen and examined Status post IVC filter placement The shortness of breath Afebrile No chest pain Continue anticoagulation Objective - Vital Signs/Intake and Output Vital Signs (last 24 hours): Temp Pulse Resp BP Pulse Ox 97.4 F L 113 H 20 112/70 99 03/09/18 08:14 03/09/18 13:25 03/09/18 08:14 03/09/18 08:14 03/09/18 08:14 Intake and Output: 03/09/18 03/09/18 06:59 18:59 Intake Total 1800 400 Output Total 2100 1100 Balance -300 -700 - Medications Medications: Current Medications Albuterol (Ventolin Hfa 90 Mcg/Actuation (8 G)) 1 puff IH RQ6 PRN PRN Reason: Shortness of Breath Last Admin: 03/09/18 07:32 Dose: 1 inhaler Alprazolam (Xanax) 0.5 mg PO Q12 [facility] Stop: 03/13/18 10:01 Last Admin: 03/09/18 09:04 Dose: 0.5 mg Apixaban (Eliquis) 5 mg PO BID [facility] Last Admin: 03/09/18 09:00 Dose: 5 mg Aspirin (Aspirin Chewable) 81 mg PO DAILY [facility] Last Admin: 03/09/18 09:00 Dose: 81 mg Budesonide (Pulmicort Respules) 0.5 mg INH RQ12 [facility] Last Admin: 03/09/18 07:31 Dose: 0.5 mg Diltiazem HCl (Cardizem) 60 mg PO Q6 [facility] Last Admin: 03/09/18 12:25 Dose: 60 mg Ferric Sodium Gluconate Complex (Ferrlecit) 125 mg IVPB DAILY [facility] Stop: 03/16/18 13:01 Last Admin: 03/09/18 08:59 Dose: 125 mg Guaifenesin (Robitussin) 200 mg PO Q4H PRN PRN Reason: Cough and congestion Last Admin: 03/09/18 09:00 Dose: 200 mg Insulin Aspart (Novolog) 0 unit SC ACHS [facility] PRN Reason: Protocol Last Admin: 03/09/18 12:24 Dose: 2 units Metformin HCl (Glucophage) 1,000 mg PO BIDCC [facility] Last Admin: 03/09/18 09:00 Dose: 1,000 mg Morphine Sulfate (Morphine) 2 mg IV Q4 PRN PRN Reason: Pain, severe (8-10) Last Admin: 03/09/18 10:44 Dose: 2 mg Multivitamins (Hexavitamin) 1 tab PO DAILY [facility] Last Admin: 03/09/18 09:00 Dose: 1 tab Pantoprazole Sodium (Protonix Ec Tab) 40 mg PO DAILY [facility] Last Admin: 03/09/18 09:00 Dose: 40 mg Prednisone (Prednisone Tab) 20 mg PO DAILY [facility] Roflumilast (Daliresp) 500 mcg PO DAILY [facility] Last Admin: 03/09/18 09:09 Dose: 500 mcg Fluticasone/Salmeterol (Advair Diskus 250/50) 1 puff INH RQ12 [facility] Last Admin: 03/09/18 07:31 Dose: 1 puff - Labs Labs: 03/08/18 05:01 03/08/18 05:01 PT 11.6 SECONDS (9.7-12.2) 03/08/18 05:01 INR 1.1 03/08/18 05:01 APTT 28 SECONDS (21-34) 03/08/18 05:01 Assessment and Plan (1) Acute exacerbation of chronic obstructive airways disease Status: Acute (2) BiPAP (biphasic positive airway pressure) dependence Status: Acute (3) Chest pain Status: Acute (4) Respiratory distress Status: Acute (5) SOB (shortness of breath) Status: Acute (6) SVT (supraventricular tachycardia) Status: Acute (7) Allergic rhinitis Status: Chronic (8) Anxiety Status: Chronic (9) Steroid-induced diabetes Status: Chronic
--- NOTE | 2018-03-09 19:31 | PN ---
DATE: 03/09/2018 SUBJECTIVE: The patient denies chest pain. His shortness of breath has improved. PHYSICAL EXAMINATION: VITAL SIGNS: Blood pressure 112/70, heart rate 85, temperature 97.4, respirations 20. HEENT: Normocephalic. CHEST: Minimal rhonchi. HEART: S1 and S2, regular. EXTREMITIES: No edema and no hematoma. ASSESSMENT: 1. Occlusive left femoral vein thrombosis. 2. Presumptive diagnosis of pulmonary embolism. 3. Chronic obstructive lung disease. 4. History of rectal carcinoma status post resection and ileostomy. RECOMMENDATIONS: Case was discussed with primary physician, Dr. Hal Garcia. Continue current aspirin 81 mg once a day, Cardizem 60 mg every 6 hours, Eliquis at 5 mg twice a day, prednisone at 20 mg once a day, Xanax at 0.5 mg twice a day, albuterol inhaler p.r.n. Mukesh Correia MD
[2018-03-10] MEDS: Fluticasone-Salmeterol 250-50mcg Diskus INH SCH ×2 (07:10→19:03)
[2018-03-10] MEDS: Budesonide 0.5 mg/2 ml Inhal Susp UD INH SCH ×2 (07:10→19:03)
[2018-03-10] MEDS: Albuterol HFA 90 mcg/actuation (8 g) IH PRN (07:10)
[2018-03-10] MEDS: (Novolog) Insulin Aspart, Recombinant 100 u/ml 10 ml vial SC SCH ×4 (07:30→22:42)
[2018-03-10] MEDS: Ferric Sodium Gluconat Complex 62.5 mg/5 ml Vial IVPB SCH (08:59)
[2018-03-10] MEDS: Pantoprazole 40 mg EC Tab PO SCH (09:02)
[2018-03-10] MEDS: Multiple Vitamins Tab PO SCH (09:02)
[2018-03-10] MEDS: guaiFENesin 200 mg/10 ml Syrup UD PO PRN (09:02)
--- NOTE | 2018-03-10 23:13 | CP.PCM.PN ---
Subjective - Date & Time of Evaluation Date of Evaluation: 03/10/18 Time of Evaluation: 18:30 - Subjective Subjective: Pt is feeling better, less short of breath, less wheezing Objective - Vital Signs/Intake and Output Vital Signs (last 24 hours): Temp Pulse Resp BP Pulse Ox 98.1 F 87 20 127/64 98 03/10/18 15:00 03/10/18 15:00 03/10/18 15:00 03/10/18 15:00 03/10/18 15:00 Intake and Output: 03/10/18 03/11/18 18:59 06:59 Intake Total 450 350 Output Total 1000 2450 Balance -550 -2100 - Medications Medications: Current Medications Albuterol (Ventolin Hfa 90 Mcg/Actuation (8 G)) 1 puff IH RQ6 PRN PRN Reason: Shortness of Breath Last Admin: 03/10/18 07:10 Dose: 1 inhaler Alprazolam (Xanax) 0.5 mg PO Q12 [facility] Stop: 03/13/18 10:01 Last Admin: 03/10/18 21:18 Dose: 0.5 mg Apixaban (Eliquis) 5 mg PO BID [facility] Last Admin: 03/10/18 17:29 Dose: 5 mg Aspirin (Aspirin Chewable) 81 mg PO DAILY [facility] Last Admin: 03/10/18 09:01 Dose: 81 mg Budesonide (Pulmicort Respules) 0.5 mg INH RQ12 [facility] Last Admin: 03/10/18 19:03 Dose: 0.5 mg Diltiazem HCl (Cardizem) 60 mg PO Q6 [facility] Last Admin: 03/10/18 17:29 Dose: 60 mg Ferric Sodium Gluconate Complex (Ferrlecit) 125 mg IVPB DAILY [facility] Stop: 03/16/18 13:01 Last Admin: 03/10/18 08:59 Dose: 125 mg Guaifenesin (Robitussin) 200 mg PO Q4H PRN PRN Reason: Cough and congestion Last Admin: 03/10/18 09:02 Dose: 200 mg Insulin Aspart (Novolog) 0 unit SC ACHS [facility] PRN Reason: Protocol Last Admin: 03/10/18 22:42 Dose: Not Given [facility] Last Admin: 03/10/18 17:29 Dose: 1,000 mg Morphine Sulfate (Morphine) 2 mg IV Q4 PRN PRN Reason: Pain, severe (8-10) Last Admin: 03/10/18 20:39 Dose: 2 mg Multivitamins (Hexavitamin) 1 tab PO DAILY [facility] Last Admin: 03/10/18 09:02 Dose: 1 tab Pantoprazole Sodium (Protonix Ec Tab) 40 mg PO DAILY [facility] Last Admin: 03/10/18 09:02 Dose: 40 mg Prednisone (Prednisone Tab) 20 mg PO DAILY [facility] Last Admin: 03/10/18 09:06 Dose: 20 mg Roflumilast (Daliresp) 500 mcg PO DAILY [facility] Last Admin: 03/10/18 09:06 Dose: 500 mcg Fluticasone/Salmeterol (Advair Diskus 250/50) 1 puff INH RQ12 [facility] Last Admin: 03/10/18 19:03 Dose: 1 puff - Labs Labs: 03/08/18 05:01 03/08/18 05:01 PT 11.6 SECONDS (9.7-12.2) 03/08/18 05:01 INR 1.1 03/08/18 05:01 APTT 28 SECONDS (21-34) 03/08/18 05:01 - Constitutional Appears: No Acute Distress - Head Exam Head Exam: ATRAUMATIC, NORMAL INSPECTION, NORMOCEPHALIC - Eye Exam Eye Exam: EOMI, Normal appearance, PERRL Pupil Exam: NORMAL ACCOMODATION, PERRL - ENT Exam ENT Exam: Mucous Membranes Moist, Normal Exam - Respiratory Exam Respiratory Exam: Decreased Breath Sounds, Rhonchi, Wheezes - Cardiovascular Exam Cardiovascular Exam: REGULAR RHYTHM, +S1, +S2 - GI/Abdominal Exam GI & Abdominal Exam: Soft, Normal Bowel Sounds. absent: Tenderness - Rectal Exam Rectal Exam: NORMAL INSPECTION Assessment and Plan (1) Acute exacerbation of chronic obstructive airways disease Status: Acute (2) BiPAP (biphasic positive airway pressure) dependence Status: Acute (3) Chest pain Status: Acute (4) Respiratory distress Status: Acute (5) SOB (shortness of breath) Status: Acute (6) SVT (supraventricular tachycardia) Status: Acute (7) Allergic rhinitis Status: Chronic (8) Anxiety Status: Chronic (9) Steroid-induced diabetes Status: Chronic
[2018-03-11] MEDS: Fluticasone-Salmeterol 250-50mcg Diskus INH SCH (07:10)
[2018-03-11] MEDS: Albuterol HFA 90 mcg/actuation (8 g) IH PRN (07:15)
[2018-03-11] MEDS: Budesonide 0.5 mg/2 ml Inhal Susp UD INH SCH (07:15)
[2018-03-11 08:31] VITALS: RESP 20
[2018-03-11] MEDS: (Novolog) Insulin Aspart, Recombinant 100 u/ml 10 ml vial SC SCH ×3 (08:32→17:02)
[2018-03-11] MEDS: Pantoprazole 40 mg EC Tab PO SCH (10:42)
[2018-03-11] MEDS: Multiple Vitamins Tab PO SCH (10:42)
[2018-03-11] MEDS: Ferric Sodium Gluconat Complex 62.5 mg/5 ml Vial IVPB SCH (10:42)
[2018-03-11 11:52] LABS: BASO % 0.3 % (0.0-2.0); EOS # 0.1 K/uL (0.0-0.7); EOS % 1.1 % (0.0-4.0); LYMPH # 2.5 K/uL (1.0-4.3); LYMPH % 21.6 % (20.0-40.0); MEAN CELL VOLUME 66.5 fL (80.0-94.0); MEAN CORPUSCULAR HEMOGLOBIN 21.5 pg (27.0-31.0); MEAN CORPUSCULAR HGB CONC 32.3 g/dL (33.0-37.0); MEAN PLATELET VOLUME 8.2 fL (7.2-11.7); MONO # 0.8 K/uL (0.0-0.8); NEUT # 8.2 K/uL (1.8-7.0); NRBC % 0.1 % (0.0-2.0); PLATELET COUNT 346 K/uL (130-400); RBC 5.13 Mil/uL (4.40-5.90); RED CELL DISTRIBUTION WIDTH 18.9 % (11.5-14.5); WHITE BLOOD COUNT 11.7 K/uL (4.8-10.8)
[2018-03-11 11:57] LABS: BLOOD UREA NITROGEN 11 mg/dL (9-20); CALCIUM 10.2 mg/dl (8.6-10.4); GFR AFRICAN-AMERICAN > 60; GFR NON-AFRICAN AMERICAN > 60
[2018-03-11 12:46] LABS: ANISOCYTOSIS SLIGHT; EOSINOPHIL 2 % (0-4); HYPOCHROMIC SLIGHT; LYMPHOCYTE 21 % (20-40); MONOCYTE 7 % (0-10); MYELOCYTE 2 % (0-0); NEUTROPHIL 68 % (50-75); PLATELET ESTIMATE NORMAL (NORMAL); POIKILOCYTOSIS SLIGHT; TOTAL CELLS COUNTED 100
[2018-03-11 12:47] LABS: BURR CELLS SLIGHT; OVALOCYTES SLIGHT; TEARDROP CELLS SLIGHT
[2018-03-11 12:48] LABS: MICROCYTOSIS SLIGHT; TARGET CELLS SLIGHT
--- NOTE | 2018-03-11 13:21 | PN ---
[id number]: 03/10/2018 SUBJECTIVE: The patient denies chest pain or shortness of breath. No groin pain and no leg pain. PHYSICAL EXAMINATION: VITAL SIGNS: Blood pressure 113/65, heart rate 91, temperature 97.7, respirations 20. HEENT: Normocephalic. CHEST: Minimal rhonchi. HEART: S1 and S2 regular. ABDOMEN: Soft. EXTREMITIES: No calf tenderness. No groin hematoma. LABORATORY DATA: Blood sugars of 110 and 155. ASSESSMENT AND PLAN: 1. Chronic obstructive lung disease. 2. Sinus tachycardia. 3. Left femoral vein occlusive deep venous thrombosis with presumptive pulmonary embolus. RECOMMENDATIONS: Continue current Advair one puff twice a day, aspirin 81 mg once a day, Cardizem 60 mg every 6 hours, Eliquis 5 mg twice a day, Glucophage 1 g twice a day, Xanax 0.5 mg twice a day. Mukesh Correia MD
--- NOTE | 2018-03-11 13:37 | OP ---
PROCEDURE DATE: 03/08/2018 PREOPERATIVE DIAGNOSIS: Deep vein thrombosis, left leg. POSTOPERATIVE DIAGNOSIS: Deep vein thrombosis, left leg. PROCEDURE CARRIED OUT: Placement of Option ELITE filter via right femoral vein with C-arm fluoroscopy, ultrasound-guided puncture, and micropuncture technique. SURGEON: Lucho Nieto Jr., MD CLOUD AUTOMATION TESTER: Medhat Crespo DO ANESTHESIOLOGIST: Amirah Dial CRNA INDICATIONS: The patient is an elderly man with a history of severe chronic lung disease, history of colostomy, in and out of the hospital, now found to have deep vein thrombosis involving the distal portion of the left common femoral vein. OPERATIVE FINDINGS: There is a vague history of diarrhea. Actually, the patient has received contrast in the past, received contrast for cardiac catheterization. evidence of any reactions. Nonetheless, because of this history, we did not carry out venogram, and we did not carry out any pre or post deployment imaging basis on anatomic landmarks. DESCRIPTION OF PROCEDURE: Using ultrasound guidance, the right common femoral vein was punctured. Under fluoroscopic control, the guidewire was advanced centrally. A 5-Barbadian sheath was placed. This was subsequently exchanged with Bentson wire and a longer sheath, micropuncture was used to initial puncture. Then, we placed the filter, deployed the Option ELITE, removed the filter at the level of the renal veins above the confluence of the iliac veins. This was then confirmed. The deployment system was removed. Blood loss for the procedure was zero. Operation carried out is placement of Option ELITE filter via right femoral vein with C-arm fluoroscopy and ultrasound-guided puncture, micropuncture technique. Lucho Nieto Jr., MD cc: Hal Garcia MD
--- NOTE | 2018-03-11 15:05 | CP.PCM.PN ---
Subjective - Date & Time of Evaluation Date of Evaluation: 03/11/18 Time of Evaluation: 08:00 - Subjective Subjective: patient seen and examined Breathing much better Afebrile Status post IVC filter Oka to discharge home Continue present treatment Continue eliquis Objective - Vital Signs/Intake and Output Vital Signs (last 24 hours): Temp Pulse Resp BP Pulse Ox 98.0 F 98 H 20 124/81 100 03/11/18 08:29 03/11/18 12:48 03/11/18 08:29 03/11/18 12:13 03/11/18 12:48 Intake and Output: 03/11/18 03/11/18 06:59 18:59 Intake Total 350 Output Total 2750 Balance -2400 - Medications Medications: Current Medications Albuterol (Ventolin Hfa 90 Mcg/Actuation (8 G)) 1 puff IH RQ6 PRN PRN Reason: Shortness of Breath Last Admin: 03/11/18 07:15 Dose: 1 inhaler Alprazolam (Xanax) 0.5 mg PO Q12 [facility] Stop: 03/13/18 10:01 Last Admin: 03/11/18 10:42 Dose: 0.5 mg Apixaban (Eliquis) 5 mg PO BID [facility] Last Admin: 03/11/18 10:42 Dose: 5 mg Aspirin (Aspirin Chewable) 81 mg PO DAILY [facility] Last Admin: 03/11/18 10:42 Dose: 81 mg Budesonide (Pulmicort Respules) 0.5 mg INH RQ12 [facility] Last Admin: 03/11/18 07:15 Dose: 0.5 mg Diltiazem HCl (Cardizem) 60 mg PO Q6 [facility] Last Admin: 03/11/18 12:12 Dose: 60 mg Ferric Sodium Gluconate Complex (Ferrlecit) 125 mg IVPB DAILY [facility] Stop: 03/16/18 13:01 Last Admin: 03/11/18 10:42 Dose: 125 mg Guaifenesin (Robitussin) 200 mg PO Q4H PRN PRN Reason: Cough and congestion Last Admin: 03/10/18 09:02 Dose: 200 mg Insulin Aspart (Novolog) 0 unit SC ACHS [facility] PRN Reason: Protocol Last Admin: 03/11/18 11:47 Dose: Not Given Metformin HCl (Glucophage) 1,000 mg PO BIDCC [facility] Last Admin: 03/11/18 08:46 Dose: 1,000 mg Morphine Sulfate (Morphine) 2 mg IV Q4 PRN PRN Reason: Pain, severe (8-10) Last Admin: 03/11/18 11:02 Dose: 2 mg Multivitamins (Hexavitamin) 1 tab PO DAILY [facility] Last Admin: 03/11/18 10:42 Dose: 1 tab Pantoprazole Sodium (Protonix Ec Tab) 40 mg PO DAILY [facility] Last Admin: 03/11/18 10:42 Dose: 40 mg Prednisone (Prednisone Tab) 20 mg PO DAILY [facility] Last Admin: 03/11/18 10:42 Dose: 20 mg Roflumilast (Daliresp) 500 mcg PO DAILY [facility] Last Admin: 03/11/18 10:42 Dose: 500 mcg Fluticasone/Salmeterol (Advair Diskus 250/50) 1 puff INH RQ12 [facility] Last Admin: 03/11/18 07:10 Dose: 1 puff - Labs Labs: 03/11/18 11:30 03/11/18 11:30 PT 11.6 SECONDS (9.7-12.2) 03/08/18 05:01 INR 1.1 03/08/18 05:01 APTT 28 SECONDS (21-34) 03/08/18 05:01 Assessment and Plan (1) Acute exacerbation of chronic obstructive airways disease Status: Acute (2) Dvt femoral (deep venous thrombosis) Status: Acute
--- NOTE | 2018-03-11 15:14 | CP.PCM.PN ---
Subjective - Date & Time of Evaluation Date of Evaluation: 03/11/18 Time of Evaluation: 11:00 - Subjective Subjective: Patient seen and examined today , denies any chest pain, sob, palpitations, no further tremors reported , fever, chills, no groin hematoma or pain no overnight events reported by RN oob ambulating the [address] without sob s/p IVC filter for DVT left femoral POD #4 Objective - Vital Signs/Intake and Output Vital Signs (last 24 hours): Temp Pulse Resp BP Pulse Ox 98.0 F 98 H 20 124/81 100 03/11/18 08:29 03/11/18 12:48 03/11/18 08:29 03/11/18 12:13 03/11/18 12:48 Intake and Output: 03/11/18 03/11/18 06:59 18:59 Intake Total 350 Output Total 2750 Balance -2400 - Medications Medications: Current Medications Albuterol (Ventolin Hfa 90 Mcg/Actuation (8 G)) 1 puff IH RQ6 PRN PRN Reason: Shortness of Breath Last Admin: 03/11/18 07:15 Dose: 1 inhaler Alprazolam (Xanax) 0.5 mg PO Q12 [facility] Stop: 03/13/18 10:01 Last Admin: 03/11/18 10:42 Dose: 0.5 mg Apixaban (Eliquis) 5 mg PO BID [facility] Last Admin: 03/11/18 10:42 Dose: 5 mg Aspirin (Aspirin Chewable) 81 mg PO DAILY [facility] Last Admin: 03/11/18 10:42 Dose: 81 mg Budesonide (Pulmicort Respules) 0.5 mg INH RQ12 [facility] Last Admin: 03/11/18 07:15 Dose: 0.5 mg Diltiazem HCl (Cardizem) 60 mg PO Q6 [facility] Last Admin: 03/11/18 12:12 Dose: 60 mg Ferric Sodium Gluconate Complex (Ferrlecit) 125 mg IVPB DAILY [facility] Stop: 03/16/18 13:01 Last Admin: 03/11/18 10:42 Dose: 125 mg Guaifenesin (Robitussin) 200 mg PO Q4H PRN PRN Reason: Cough and congestion Last Admin: 03/10/18 09:02 Dose: 200 mg Insulin Aspart (Novolog) 0 unit SC ACHS [facility] PRN Reason: Protocol Last Admin: 03/11/18 11:47 Dose: Not Given Metformin HCl (Glucophage) 1,000 mg PO BIDCC [facility] Last Admin: 03/11/18 08:46 Dose: 1,000 mg Morphine Sulfate (Morphine) 2 mg IV Q4 PRN PRN Reason: Pain, severe (8-10) Last Admin: 03/11/18 11:02 Dose: 2 mg Multivitamins (Hexavitamin) 1 tab PO DAILY [facility] Last Admin: 03/11/18 10:42 Dose: 1 tab Pantoprazole Sodium (Protonix Ec Tab) 40 mg PO DAILY [facility] Last Admin: 03/11/18 10:42 Dose: 40 mg Prednisone (Prednisone Tab) 20 mg PO DAILY [facility] Last Admin: 03/11/18 10:42 Dose: 20 mg Roflumilast (Daliresp) 500 mcg PO DAILY [facility] Last Admin: 03/11/18 10:42 Dose: 500 mcg Fluticasone/Salmeterol (Advair Diskus 250/50) 1 puff INH RQ12 [facility] Last Admin: 03/11/18 07:10 Dose: 1 puff - Labs Labs: 03/11/18 11:30 03/11/18 11:30 PT 11.6 SECONDS (9.7-12.2) 03/08/18 05:01 INR 1.1 03/08/18 05:01 APTT 28 SECONDS (21-34) 03/08/18 05:01 - Constitutional Appears: Well, No Acute Distress - Respiratory Exam Respiratory Exam: NORMAL BREATHING PATTERN Assessment and Plan - Assessment and Plan (Free Text) Assessment: A/P 67 yr old male with pmhx of Anemia, Anxiety, Arthritis, Asthma, Bronchitis, Cardia Arrhythmia (SVT), COPD, Diabetes, admitted with exc. COPD and sinus tachy oxygen saturation stable on nasal canula and spo2 98% Dr. Irizarry consulted for involuntary tremors and workup has been negative and no further recommendations DVT + on left femerol and s/p IVC filter and started on eliquis seen by Dr. Nuno today, cleared for discharge from pulminory standpoint and f/u with his office in 2 week s D/W Dr. Garcia, stable for discharge home today and f/u wiht Dr. Garcia office in 1 week Discharge plan discussed with patient , who understands and agrees with plan RX e prescribed to [facility]
[2018-03-11 16:48] VITALS: BP 122/69; PULSE 110; TEMP 97.6; O2SAT 96
--- NOTE | 2018-03-11 23:35 | PN ---
DATE: 03/11/2018 SUBJECTIVE: The patient denies chest pain. He is mildly short of breath. He denies any palpitation. PHYSICAL EXAMINATION: VITAL SIGNS: Blood pressure 122/69, heart rate 110, temperature 97.6, respiration 20. HEENT: Normocephalic. CHEST: Clear. HEART: S1, S2 are regular. ABDOMEN: Soft. EXTREMITIES: No edema. No calf tenderness. No hematoma. LABORATORY DATA: Hemoglobin and hematocrit 11 and 34.1, white count 11.7, and platelet count 346,000. Today's SMA-7: Sodium 136, potassium 4.2, chloride 97, CO2 of 29, glucose 115, BUN 11, creatinine 0.6. ASSESSMENT: 1. Left femoral vein occlusive deep venous thrombosis with presumptive pulmonary embolus. 2. Chronic obstructive lung disease. 3. Physiologic sinus tachycardia. 4. Rectal cancer, status post resection and ileostomy. RECOMMENDATIONS: Continue Advair at one puff twice a day, aspirin 81 mg once a day, Cardizem at 60 mg every 6 hours, metformin 1 g twice a day, Eliquis 5 mg twice a day. The patient can be discharged on Eliquis from the cardiac point of view. Mukesh Correia MD
--- NOTE | 2018-03-12 00:18 | PQF ---
PROVIDER RESPONSE TEXT: Acute on Chronic Respiratory Failure REVIEWER QUERY TEXT: Clarification of Clinical Diagnostic Findings Please clarify documentation or clinical relevance for the clinical / diagnostic findings or whether those are insignificant or unable to be further specified. The patient's Clinical Indicators include: 67 Y O M As per EMS, patient was noted to be severe dyspnea on exertion with minimal exertion. Patient has had multiple ER visits for same Hx of advance COPD: IN ED--> Resp 30 Shortness of breath, Accessory muscle use, Gasping multiple hospitalizations for COPD exacerbation in past, he is on home oxygen, BIPAP, came in with c /o shortness of breath, generalized weakness, shaking, dull substernal chest pain, getting worse with coughing Lungs retractions, poor BS, bilateral tachypnea (1) Acute exacerbation of chronic obstructive airways disease Status: Acute (2) BiPAP (biphasic positive airway pressure) dependence Status: Acute (3) Chest pain Status: Acute Priority: Medium (4) Respiratory distress Status: Acute Meds: IV Solumedrol, Daliresp, Ventolin INH, Pulmicort respules INH, Advair Diskus INH BiPAP Query created by: Megha Kebede on 03/07/2018 3:43 PM Electronically signed by: Hal Garcia MD 03/12/2018 12:15 AM
--- NOTE | 2018-03-12 15:36 | CP.PCM.DIS ---
Provider - Provider Date of Admission: 03/06/18 06:08 Attending physician: Hal Garcia MD Time Spent in preparation of Discharge (in minutes): 45 Diagnosis - Discharge Diagnosis (1) Acute exacerbation of chronic obstructive airways disease Status: Acute (2) BiPAP (biphasic positive airway pressure) dependence Status: Acute (3) Chest pain Status: Acute Priority: Medium (4) Respiratory distress Status: Acute (5) SOB (shortness of breath) Status: Acute (6) SVT (supraventricular tachycardia) Status: Acute (7) Allergic rhinitis Status: Chronic Priority: Medium (8) Anxiety Status: Chronic (9) Steroid-induced diabetes Status: Chronic Hospital Course - Lab Results Lab Results: Most Recent Lab Values WBC 11.7 K/uL (4.8-10.8) H 03/11/18 11:30 RBC 5.13 Mil/uL (4.40-5.90) 03/11/18 11:30 Hgb 11.0 g/dL (12.0-18.0) L D 03/11/18 11:30 Hct 34.1 % (35.0-51.0) L 03/11/18 11:30 MCV 66.5 fL (80.0-94.0) L 03/11/18 11:30 MCH 21.5 pg (27.0-31.0) L 03/11/18 11:30 MCHC 32.3 g/dL (33.0-37.0) L 03/11/18 11:30 RDW 18.9 % (11.5-14.5) H 03/11/18 11:30 Plt Count 346 K/uL (130-400) 03/11/18 11:30 MPV 8.2 fL (7.2-11.7) 03/11/18 11:30 Neut % (Auto) 70.0 % (50.0-75.0) 03/11/18 11:30 Lymph % (Auto) 21.6 % (20.0-40.0) 03/11/18 11:30 [place] % (Auto) 7.0 % (0.0-10.0) 03/11/18 11:30 Eos % (Auto) 1.1 % (0.0-4.0) 03/11/18 11:30 Baso % (Auto) 0.3 % (0.0-2.0) 03/11/18 11:30 Neut # (Auto) 8.2 K/uL (1.8-7.0) H 03/11/18 11:30 Lymph # (Auto) 2.5 K/uL (1.0-4.3) 03/11/18 11:30 [place] # (Auto) 0.8 K/uL (0.0-0.8) 03/11/18 11:30 Eos # (Auto) 0.1 K/uL (0.0-0.7) 03/11/18 11:30 Baso # (Auto) 0.0 K/uL (0.0-0.2) 03/11/18 11:30 Neutrophils % (Manual) 68 % (50-75) 03/11/18 11:30 Lymphocytes % (Manual) 21 % (20-40) 03/11/18 11:30 Monocytes % (Manual) 7 % (0-10) 03/11/18 11:30 Eosinophils % (Manual) 2 % (0-4) 03/11/18 11:30 Myelocytes % 2 % (0-0) H 03/11/18 11:30 Platelet Estimate Normal (NORMAL) 03/11/18 11:30 Hypochromasia (manual) Slight 03/11/18 11:30 Poikilocytosis (manual Slight 03/11/18 11:30 Anisocytosis (manual) Slight 03/11/18 11:30 Microcytosis (manual) Slight 03/11/18 11:30 Target Cells Slight 03/11/18 11:30 Tear Drop Cells Slight 03/11/18 11:30 Ovalocytes Slight 03/11/18 11:30 Eva Cells Slight 03/11/18 11:30 ESR 27 mm/hr (0-15) H 03/07/18 13:57 PT 11.6 SECONDS (9.7-12.2) 03/08/18 05:01 INR 1.1 03/08/18 05:01 APTT 28 SECONDS (21-34) 03/08/18 05:01 D-Dimer, Quantitative 394 ng/mlDDU (0-243) H 03/06/18 17:02 Puncture Site Rr 03/06/18 05:50 pCO2 46 mm/Hg (35-45) H 03/06/18 05:50 pO2 244 mm/Hg (80-100) H 03/06/18 05:50 HCO3 25.1 mmol/L (21-28) 03/06/18 05:50 ABG pH 7.36 (7.35-7.45) 03/06/18 05:50 ABG Total CO2 27.4 mmol/L (22-28) 03/06/18 05:50 ABG O2 Saturation 99.6 % (95-98) H 03/06/18 05:50 ABG Base Excess 0.1 mmol/L (-2.0-3.0) 03/06/18 05:50 Jesus Test Pos 03/06/18 05:50 ABG Potassium 3.5 mmol/L (3.6-5.2) L 03/06/18 05:50 A-a O2 Difference -16.0 mm/Hg 03/06/18 05:50 Respiratory Index -0.1 03/06/18 05:50 Sodium 141.0 mmol/l (132-148) 03/06/18 05:50 Chloride 107.0 mmol/L (98-107) 03/06/18 05:50 Glucose 140 mg/dl (75-110) H 03/06/18 05:50 Lactate 1.8 mmol/L (0.7-2.1) 03/06/18 05:50 Vent Mode Bipap 03/06/18 05:50 FiO2 40.0 % 03/06/18 05:50 Inspiratory BiPAP 12 03/06/18 05:50 Expiratory BiPAP 6 03/06/18 05:50 Sodium 136 mmol/L (132-148) 03/11/18 11:30 Potassium 4.2 mmol/L (3.6-5.2) 03/11/18 11:30 Chloride 97 mmol/L (98-107) L 03/11/18 11:30 Carbon Dioxide 29 mmol/L (22-30) 03/11/18 11:30 Anion Gap 15 (10-20) 03/11/18 11:30 BUN 11 mg/dL (9-20) 03/11/18 11:30 Creatinine 0.6 mg/dL (0.8-1.5) L 03/11/18 11:30 Est GFR ( Amer) > 60 03/11/18 11:30 Est GFR (Non-Af Amer) > 60 03/11/18 11:30 POC Glucose (mg/dL) 315 mg/dL (65-110) H 03/11/18 16:12 Random Glucose 115 mg/dL (75-110) H 03/11/18 11:30 Calcium 10.2 mg/dl (8.6-10.4) 03/11/18 11:30 Total Bilirubin 0.3 mg/dL (0.2-1.3) 03/06/18 05:42 AST 22 U/L (17-59) 03/06/18 05:42 ALT 41 U/L (21-72) 03/06/18 05:42 Alkaline Phosphatase 160 U/L (38-126) H 03/06/18 05:42 Ammonia < 9 umol/L (9-33) L 03/07/18 13:57 Troponin I < 0.0120 ng/mL (0.00-0.120) 03/06/18 13:57 NT-Pro-B Natriuret Pep 72.1 pg/mL (0-900) 03/06/18 05:42 Total Protein 7.1 g/dL (6.3-8.3) 03/06/18 05:42 Albumin 4.2 g/dL (3.5-5.0) 03/06/18 05:42 Globulin 2.9 gm/dL (2.2-3.9) 03/06/18 05:42 Albumin/Globulin Ratio 1.4 (1.0-2.1) 03/06/18 05:42 Ceruloplasmin 23 mg/dL (18-36) 03/07/18 13:57 Free T4 0.87 ng/dL (0.78-2.19) 03/07/18 13:57 TSH 3rd Generation 0.30 mIU/L (0.46-4.68) L 03/07/18 13:57 Arterial Blood Potassium 3.5 mmol/L (3.6-5.2) L 03/06/18 05:50 Serum Immunofixation Not detected (Not Detected) 03/07/18 13:57 RPR Nonreactive (NONREACTIVE) 03/07/18 13:57 - Hospital Course Hospital Course: A/P 67 yr old male with pmhx of Anemia, Anxiety, Arthritis, Asthma, Bronchitis, Cardia Arrhythmia (SVT), COPD, Diabetes, admitted with exc. COPD and sinus tachy oxygen saturation stable on nasal canula and spo2 98% Dr. Irizarry consulted for involuntary tremors and workup has been negative and no further recommendations DVT + on left femerol and s/p IVC filter and started on eliquis seen by Dr. Nuno today, cleared for discharge from pulmonary standpoint and f/u with his office in 2 week s D/W Dr. Garcia, stable for discharge home today and f/u with me office in 1 week Discharge plan discussed with patient , who understands and agrees with plan RX e prescribed to [facility] pharmacy Discharge Exam - Head Exam Head Exam: ATRAUMATIC, NORMOCEPHALIC Discharge Plan - Discharge Medications Prescriptions: Ostomy Supply [Coloplast Skin Barrier] 1 each [facility] DAILY 30 Days each Apixaban [Eliquis] 5 mg PO BID #60 tab Colostomy Bag, Non-Sterile [Esteem Drainable Pouch] 1 each MC BID 30 Days each predniSONE [predniSONE Tab] 5 mg PO DAILY #20 tab Sodium Chloride 0.9% [Sodium Chloride 3 Ml] 3 ml IH Q6 30 Days neb traMADol [Ultram] 50 mg PO Q6 #30 tab - Follow Up Plan Condition: STABLE Disposition: HOME/ ROUTINE Instructions: Heart Healthy Diet, Heart Failure, Adult (DC), Deep Vein Thrombosis (Blood Clots in the Legs) (DC), Pulmonary Embolism (Blood Clot in the Lungs) (DC), Exacerbation of COPD (DC), Apixaban, Vena Cava Filter Placement Additional Instructions: please follow up with Dr. Garcia office in 1 week Please follow up with Dr. Nuno office in 2 weeks Continue medication as per med rec. Please case picker medication from [facility] and provide the coupon If you noticed any bleeding , please call Dr. Garcia Referrals: Ralf Nuno MD [Staff Provider] - Hal Garcia MD [Staff Provider] -
== END 2018-03-11 18:56 | disposition home or self-care (01) | DRG 166 ==
LOC: C.ER 05:25 → C.9E 06:08 → OBSVTOIN 06:08 → C.6T 08:13
PROVIDERS: ADMIT Internal Medicine; ATTEND Internal Medicine
PROC: 06H03DZ Insertion of Intraluminal Device into Inferior Vena Cava, Percutaneous Approach (ICD-10-PCS; principal; 2018-03-08 16:15)
DX: J44.1 Chronic obstructive pulmonary disease with (acute) exacerbation (principal); J96.20 Acute and chronic respiratory failure, unspecified whether with hypoxia or hypercapnia; I82.412 Acute embolism and thrombosis of left femoral vein; Z99.11 Dependence on respirator [ventilator] status; I47.1 Supraventricular tachycardia; I13.0 Hypertensive heart and chronic kidney disease with heart failure and stage 1 through stage 4 chronic kidney disease, or unspecified chronic kidney disease; Z85.048 Personal history of other malignant neoplasm of rectum, rectosigmoid junction, and anus; Z86.711 Personal history of pulmonary embolism; Z87.891 Personal history of nicotine dependence; Z93.3 Colostomy status; Z79.01 Long term (current) use of anticoagulants; Z99.81 Dependence on supplemental oxygen; G47.30 Sleep apnea, unspecified; F41.9 Anxiety disorder, unspecified; E11.22 Type 2 diabetes mellitus with diabetic chronic kidney disease; I50.9 Heart failure, unspecified; N18.9 Chronic kidney disease, unspecified; E11.42 Type 2 diabetes mellitus with diabetic polyneuropathy; D64.9 Anemia, unspecified; E09.65 Drug or chemical induced diabetes mellitus with hyperglycemia

== ENCOUNTER 2018-03-16 01:17 | Inpatient (IN) | payer MEDICARE, BC ==
[2018-03-16 01:18] VITALS: BMI 24.2
--- NOTE | 2018-03-16 02:37 | C.PDOC ---
History Of Present Illness 67 year old male presents to the ER with a complaint of bilateral hip pain and back pain after he fell at home yesterday. Patient has a Hx of an abdominal operation 7 days ago. Denies weakness, numbness, or head injury. Time Seen by Provider: 03/16/18 01:22 Chief Complaint (Nursing): Back Pain History Per: Patient History/Exam Limitations: no limitations Onset/Duration Of Symptoms: Days Current Symptoms Are (Timing): Still Present Quality Of Discomfort: Unable To Describe Previous Symptoms: Prior Surgery Associated Symptoms: None Exacerbating Factor(s): Nothing Recent travel outside of the [place]: No Past Medical History Reviewed: Historical Data, Nursing Documentation, Vital Signs Vital Signs: Last Vital Signs Temp 98.7 F 03/16/18 01:29 Pulse 103 H 03/16/18 06:09 Resp 13 03/16/18 06:09 BP 127/78 03/16/18 06:09 Pulse Ox 98 03/16/18 06:09 - Medical History PMH: Anemia, Anxiety, Arthritis, Asthma, Bronchitis, Cardia Arrhythmia (SVT), CHF, COPD, Diabetes, Emphysema, HTN, Hypercholesterolemia, Kidney Stones, Pneumonia, Chronic Kidney Disease, Sleep Apnea (ON DALIRESP) Denies: Fractures, Gastritis Surgical History: Endoscopy - [facility] Procedures ASSISTANCE WITH RESPIRATORY VENTILATION, 24-96 HRS, CPAP (08/23/17) ASSISTANCE WITH RESPIRATORY VENTILATION, <24 HRS, CPAP (11/14/17) ASSISTANCE WITH RESPIRATORY VENTILATION, >96 HRS, CPAP (02/07/18) CONTINUOUS INVASIVE MECHANICAL VENTILATION <96 CONSEC HRS (11/29/14) DILATION OF RIGHT URETER WITH INTRALUMINAL DEVICE, ENDO (03/20/17) DRAINAGE OF BLADDER WITH DRAINAGE DEVICE, VIA OPENING (12/04/17) DRAINAGE OF RECTUM, PERCUTANEOUS APPROACH (12/04/17) EXCISION OF ILEUM, OPEN APPROACH (12/04/17) EXCISION OF SIGMOID COLON, ENDO, DIAGN (03/20/17) EXCISION OF STOMACH, ENDO, DIAGN (03/20/17) EXCISION OF TRANSVERSE COLON, ENDO, DIAGN (03/20/17) INFLUENZA VACCINATION (06/02/14) INSERT ENDOTRACHEAL TUBE (11/29/14) INSERTION OF INFUSION DEV INTO SUP VENA CAVA, PERC APPROACH (01/26/18) INSERTION OF INTRALUM DEV INTO INF VENA CAVA, PERC APPROACH (03/06/18) LARYGNOSCOPY AND OTH TRACHEOSCOPY (04/18/15) MEASURE OF CARDIAC SAMPL & PRESSURE, L HEART, PERC APPROACH (12/01/15) NON-INVASIVE MECHANICAL VENTILATION (04/18/15) RESECTION OF SIGMOID COLON, OPEN APPROACH (03/20/17) RESPIRATORY VENTILATION, GREATER THAN 96 CONSECUTIVE HOURS (03/20/17) Family History: States: Unknown Family Hx - Social History Hx Tobacco Use: Yes (8 years ppd smoker. quit 1.5 years ago) Hx Alcohol Use: No Hx Substance Use: No - Immunization History Hx Tetanus Toxoid Vaccination: No Hx Influenza Vaccination: Yes Hx Pneumococcal Vaccination: Yes Review Of Systems Cardiovascular: Negative for: Chest Pain, Palpitations Respiratory: Negative for: Cough, Shortness of Breath Gastrointestinal: Negative for: Abdominal Pain Musculoskeletal: Positive for: Back Pain Neurological: Negative for: Weakness, Numbness Physical Exam - Physical Exam Appears: Non-toxic, Other (Moderate painful distress) Skin: Normal Color, Warm, Dry Head: Atraumatic, Normacephalic Eye(s): bilateral: Normal Inspection, PERRL, EOMI Ear(s): Bilateral: Normal Oral Mucosa: Moist Throat: Erythema Neck: Normal, No Midline Cervical Tenderness, No Paracervical Tenderness, Supple Chest: Symmetrical, No Tenderness Cardiovascular: Rhythm Regular Respiratory: Normal Breath Sounds, No Rales, No Rhonchi, No Stridor, No Wheezing Gastrointestinal/Abdominal: Bowel Sounds (active), Soft, No Tenderness, Other ( Colostomy to right lower abdomen) Back: No Vertebral Tenderness, Paraspinal Tenderness (Lumbar) Extremity: Normal ROM (x4), Tenderness (Bilateral hips), No Swelling Pulses: Left Dorsalis Pedis: Normal, Right Dorsalis Pedis: Normal Neurological/Psych: Oriented x3, Normal Speech, Normal Motor, Normal Sensation Gait: Steady ED Course And Treatment - Laboratory Results Result Diagrams: 03/16/18 05:59 O2 Sat by Pulse Oximetry: 100 (Room air) Pulse Ox Interpretation: Normal - CT Scan/US CT Pelvis Other Rad Studies (CT/US): Read By Radiologist, Radiology Report Reviewed CT/US Interpretation: IMPRESSION: 1. Postoperative changes with right lower quadrant ostomy. Scattered colonic diverticuli. 2. Mild compression of L3, L4 and L5. Medical Decision Making Medical Decision Making: Morphine administered. CT pelvis ordered. On first re-exam, the patient reports that the pain is severe and is asking for more pain medications. Morphine IM is give. On third exam, the patient reports that the pain has improve, Patient is ambulatory in the ED. Just still present and states he cannot walk. Disposition - Disposition Disposition: HOSPITALIZED Disposition Time: 05:30 Condition: STABLE - POA Present On Arrival: None - Clinical Impression Clinical Impression: Intractable back pain - PA / MANAGER MAC / Resident Statement MD/DO has reviewed & agrees with the documentation as recorded. - Scribe Statement The provider has reviewed the documentation as recorded by the Scribilya Hackett All medical record entries made by the Kezia were at my direction and personally dictated by me. I have reviewed the chart and agree that the record accurately reflects my personal performance of the history, physical exam, medical decision making, and the department course for this patient. I have also personally directed, reviewed, and agree with the discharge instructions and disposition.
[2018-03-16] MEDS ORDERED: Morphine 4 MG/ML VIAL ONE (04:01)
[2018-03-16] MEDS ORDERED: Dexamethasone 4 mg/1 ml IVP STA (04:56)
[2018-03-16] MEDS ORDERED: Albuterol HFA 90 mcg/actuation (8 g) IH SCH (06:00)
[2018-03-16 06:02] LABS: BASO # 0.2 K/uL (0.0-0.2); BASO % 1.2 % (0.0-2.0); EOS # 0.1 K/uL (0.0-0.7); EOS % 0.9 % (0.0-4.0); HEMOGLOBIN 9.5 g/dL (12.0-18.0); LYMPH # 2.2 K/uL (1.0-4.3); LYMPH % 17.6 % (20.0-40.0); MEAN CELL VOLUME 67.8 fL (80.0-94.0); MEAN CORPUSCULAR HGB CONC 32.5 g/dL (33.0-37.0); MEAN PLATELET VOLUME 7.8 fL (7.2-11.7); MONO # 0.8 K/uL (0.0-0.8); MONO % 6.6 % (0.0-10.0); NEUT # 9.1 K/uL (1.8-7.0); NEUT % 73.7 % (50.0-75.0); RBC 4.29 Mil/uL (4.40-5.90); RED CELL DISTRIBUTION WIDTH 19.4 % (11.5-14.5); WHITE BLOOD COUNT 12.4 K/uL (4.8-10.8)
[2018-03-16] MEDS ORDERED: Dexamethasone 4 mg/1 ml ONE (06:03)
[2018-03-16 06:25] LABS: ALB/GLOB RATIO 1.5 (1.0-2.1); ALBUMIN 3.7 g/dL (3.5-5.0); ALT/SGPT 91 U/L (21-72); AST/SGOT 48 U/L (17-59); BLOOD UREA NITROGEN 7 mg/dL (9-20); CALCIUM 9.6 mg/dl (8.6-10.4); GFR AFRICAN-AMERICAN > 60; GFR NON-AFRICAN AMERICAN > 60
[2018-03-16] MEDS: Budesonide 0.5 mg/2 ml Inhal Susp UD INH SCH ×2 (07:51→19:36)
[2018-03-16] MEDS: Fluticasone-Salmeterol 250-50mcg Diskus INH SCH ×2 (07:51→20:01)
[2018-03-16] MEDS ORDERED: Enoxaparin 150 mg Syringe SC SCH (10:00)
[2018-03-16] MEDS ORDERED: Home Med 1 UNIT (Multivitamin [Multivitamins] 1 EACH) PO SCH (10:00)
[2018-03-16] MEDS: Multiple Vitamins Tab PO SCH (11:08)
[2018-03-16] MEDS: Pantoprazole 20 mg EC Tab PO SCH (11:09)
[2018-03-16] MEDS: Lidocaine 5% Patch TD SCH (11:09)
--- NOTE | 2018-03-16 15:41 | CT ---
Date of service: 03/16/2018 PROCEDURE: CT Pelvis without contrast HISTORY: fall, hip pain and low back pain COMPARISON: Abdomen pelvis CT without contrast 02/19/2018. TECHNIQUE: Contiguous axial images of the pelvis . No intravenous or oral contrast given. Coronal and sagittal reformats generated. Radiation dose: Total exam DLP = 388.04 mGy-cm. This CT exam was performed using one or more of the following dose reduction techniques: Automated exposure control, adjustment of the mA and/or kV according to patient size, and/or use of iterative reconstruction technique. FINDINGS: BLADDER: Unremarkable. No mass. REPRODUCTIVE ORGANS: Unremarkable. VISUALIZED BOWEL: A left lower quadrant apparent enterostomy is identified once again. No bowel obstruction appreciable and at the visualized loops. PERITONEUM: Unremarkable, as visualized. No free fluid. No free air. LYMPH NODES: Unremarkable. No enlarged lymph nodes. BONES: Multilevel thoracic spondylosis is appreciate without definite fracture. degenerative changes seen the bilateral sacroiliac and hip joints. No destructive bony lesion identified grossly. Pubic symphysis appears intact. Mild interval anterior wedging of L3 is appreciated representing a fracture of indeterminate age, potentially acute or subacute. VASCULATURE: Infrarenal inferior vena cava filter placement identified. OTHER FINDINGS: None. IMPRESSION: 1. A potential acute or subacute but mild anterior wedge compression fracture of L3 is suggested with no additional potential fracture appreciate throughout the lumbar sacral spine and the pelvic ring as imaged. 2. Stable right lower quadrant enterostomy. Concordant preliminary report from [facility], 03/16/2018.
[2018-03-16 17:35] LABS: INR 1.3; PROTHROMBIN TIME 14.5 SECONDS (9.7-12.2)
[2018-03-16] MEDS ORDERED: (Novolog) Insulin Aspart, Recombinant 100 u/ml 10 ml vial SC ONE (17:47)
[2018-03-16] MEDS: Albuterol HFA 90 mcg/actuation (8 g) IH SCH ×2 (19:36→20:01)
[2018-03-16] MEDS: (Novolog) Insulin Aspart, Recombinant 100 u/ml 10 ml vial SC SCH (21:39)
[2018-03-16] MEDS ORDERED: (Novolog) Insulin Aspart, Recombinant 100 u/ml 10 ml vial SC SCH (22:00)
--- NOTE | 2018-03-17 00:22 | CP.PCM.HP ---
History of Present Illness - History of Present Illness History of Present Illness: cc: BACK PAIN History Of Present Illness 67 year old male presents to the ER with a complaint of bilateral hip pain and back pain after he fell at home yesterday. Patient has a Hx of an abdominal operation 7 days ago. Denies weakness, numbness, or head injury. Past Patient History - Infectious Disease Hx of Infectious Diseases: None - Past Medical History & Family History Past Medical History?: Yes - Past Social History Smoking Status: Former Smoker - CARDIAC Hx Cardia Arrhythmia: Yes (SVT) Hx Congestive Heart Failure: Yes Hx Hypercholesterolemia: Yes Hx Hypertension: Yes - PULMONARY Hx Asthma: Yes Hx Bronchitis: Yes Hx Chronic Obstructive Pulmonary Disease (COPD): Yes Hx Emphysema: Yes Hx Pneumonia: Yes Hx Sleep Apnea: Yes (ON DALIRESP) - NEUROLOGICAL Hx Neurological Disorder: No HX Cerebrovascular Accident: No - HEENT Hx Cataracts: Yes - RENAL Hx Chronic Kidney Disease: Yes Hx Kidney Stones: Yes - ENDOCRINE/METABOLIC Hx Diabetes Mellitus Type 2: Yes - HEMATOLOGICAL/ONCOLOGICAL Hx Anemia: Yes - INTEGUMENTARY Other/Comment: Scattered ecchymosis on both arms. - MUSCULOSKELETAL/RHEUMATOLOGICAL Hx Falls: Yes - GASTROINTESTINAL Hx Gastritis: No - PSYCHIATRIC Hx Substance Use: No - SURGICAL HISTORY Hx Surgeries: Yes Hx Cataract Extraction: Yes (left eye, right eye) Hx Cardiac Catheterization: Yes (11/2015) Hx Eye Surgery: Yes Hx Pulmonary Surgery: Yes Other/Comment: colon resection with right ileostomy - ANESTHESIA Hx Anesthesia: Yes Hx Anesthesia Reactions: No Hx Malignant Hyperthermia: No Meds Allergies/Adverse Reactions: Allergies Allergy/AdvReac Type Severity Reaction Status Date / Time acetaminophen [From Tylenol] Allergy RASH Verified 02/19/18 12:12 FISH Allergy SWELLING Verified 02/19/18 12:12 shrimp Allergy SHORTNESS Verified 02/19/18 12:12 OF BREATH IV dye Allergy Severe ANAPHYLAXIS Uncoded 02/19/18 12:12 Results - Vital Signs Recent Vital Signs: Last Vital Signs Temp 98.3 F 03/16/18 22:06 Pulse 103 H 03/16/18 22:07 Resp 20 03/16/18 22:06 BP 114/66 03/16/18 22:06 Pulse Ox 99 03/16/18 22:06 - Labs Result Diagrams: 03/16/18 05:59 03/16/18 05:59 Labs: Laboratory Results - last 24 hr 03/16/18 03/16/18 03/16/18 01:47 05:59 05:59 WBC 12.4 H RBC 4.29 L Hgb 9.5 L Hct 29.1 L MCV 67.8 L MCH 22.0 L MCHC 32.5 L RDW 19.4 H Plt Count 272 MPV 7.8 Neut % (Auto) 73.7 Lymph % (Auto) 17.6 L [place] % (Auto) 6.6 Eos % (Auto) 0.9 Baso % (Auto) 1.2 Neut # (Auto) 9.1 H Lymph # (Auto) 2.2 [place] # (Auto) 0.8 Eos # (Auto) 0.1 Baso # (Auto) 0.2 PT INR APTT Sodium 135 Potassium 4.1 Chloride 98 Carbon Dioxide 30 Anion Gap 11 BUN 7 L Creatinine 0.5 L Est GFR ( Amer) > 60 Est GFR (Non-Af Amer) > 60 POC Glucose (mg/dL) 134 H Random Glucose 113 H Calcium 9.6 Total Bilirubin 0.5 AST 48 ALT 91 H D Alkaline Phosphatase 178 H Total Protein 6.2 L Albumin 3.7 Globulin 2.4 Albumin/Globulin Ratio 1.5 03/16/18 03/16/18 03/16/18 07:11 11:03 16:23 WBC RBC Hgb Hct MCV MCH MCHC RDW Plt Count MPV Neut % (Auto) Lymph % (Auto) [place] % (Auto) Eos % (Auto) Baso % (Auto) Neut # (Auto) Lymph # (Auto) [place] # (Auto) Eos # (Auto) Baso # (Auto) PT INR APTT Sodium Potassium Chloride Carbon Dioxide Anion Gap BUN Creatinine Est GFR ( Amer) Est GFR (Non-Af Amer) POC Glucose (mg/dL) 118 H 283 H 386 H Random Glucose Calcium Total Bilirubin AST ALT Alkaline Phosphatase Total Protein Albumin Globulin Albumin/Globulin Ratio 03/16/18 17:16 WBC RBC Hgb Hct MCV MCH MCHC RDW Plt Count MPV Neut % (Auto) Lymph % (Auto) [place] % (Auto) Eos % (Auto) Baso % (Auto) Neut # (Auto) Lymph # (Auto) [place] # (Auto) Eos # (Auto) Baso # (Auto) PT 14.5 H INR 1.3 APTT 31 Sodium Potassium Chloride Carbon Dioxide Anion Gap BUN Creatinine Est GFR ( Amer) Est GFR (Non-Af Amer) POC Glucose (mg/dL) Random Glucose Calcium Total Bilirubin AST ALT Alkaline Phosphatase Total Protein Albumin Globulin Albumin/Globulin Ratio
--- NOTE | 2018-03-17 00:53 | CON ---
Copied To: Mukesh Correia MD Attending MD: Mukesh Correia MD DATE: 03/16/2018 CARDIOLOGY CONSULTATION REASON FOR CONSULTATION: Recent fall, as well as sinus tachycardia. HISTORY OF PRESENT ILLNESS: The patient is a 67-year-old male, who has chronic obstructive lung disease and recently diagnosed with near occlusive femoral vein DVT with presumptive thromboembolism, and the patient was discharged recently on Eliquis after an IVC filter was placed. The patient has a history of rectal carcinoma, status post resection and ileostomy with failure to revise the ileostomy. The patient presents because of a fall. The patient stated that he was home, trying to leave the bed on a walker and collapsed to the floor on his back and is experiencing low back pain. The patient denies any palpitation, dizziness, or fainting. The patient was able to pull himself off the floor and go back to the bed, and his activated EMS when she went home. The patient denies any head injury and denies any bleeding. SOCIAL HISTORY: The patient is a nonsmoker. He is , lives with his . MEDICATIONS: Advair one puff twice a day, Cardizem 60 mg four times a day, Eliquis 5 mg twice a day, Flexeril 5 mg b.i.d., metformin 500 mg twice a day, morphine sulfate 2 mg subcutaneous every 4 hours p.r.n., prednisone 5 mg daily, Xanax 0.5 mg twice a day. REVIEW OF SYSTEMS: No fever or chills. No hematemesis or melena. No nasal bleed. PHYSICAL EXAMINATION: GENERAL: The patient is an elderly male, who does not appear to be in acute distress. VITAL SIGNS: Blood pressure 103/65, heart rate 107, temperature 98.7, respirations 20. HEENT: Pale conjunctivae. CHEST: Bilateral rhonchi. HEART: S1 and S2 are regular. ABDOMEN: Soft. EXTREMITIES: No edema. LABORATORY DATA: SMA-7: Sodium 135, potassium 4.1, chloride 98, CO2 30, glucose 115, BUN 7, creatinine 0.5. CBC: WBC 12.4, hemoglobin 9.5, hematocrit 29.1, platelet count 172,000. Pelvic CT scan was performed, but the report is still pending. ASSESSMENT: 1. Status post fall. 2. Rule out compression spinal fracture. 3. History of recent deep venous thrombosis and pulmonary embolism. 4. Chronic obstructive lung disease. 5. Anemia. RECOMMENDATIONS: Continue current Eliquis at 5 mg p.o. twice a day, Cardizem 60 mg four times a day, prednisone 5 mg once a day, Xanax 0.5 mg once a day. Obtain 12-lead EKG. Transfer the patient to telemetry and obtain PT, PTT, and INR. I will follow x-ray of lumbosacral spine. Mukesh Correia MD
[2018-03-17] MEDS: Albuterol HFA 90 mcg/actuation (8 g) IH SCH ×4 (02:24→19:13)
[2018-03-17] MEDS: Budesonide 0.5 mg/2 ml Inhal Susp UD INH SCH ×2 (08:12→19:13)
[2018-03-17] MEDS: Fluticasone-Salmeterol 250-50mcg Diskus INH SCH ×2 (08:12→19:14)
[2018-03-17] MEDS: (Novolog) Insulin Aspart, Recombinant 100 u/ml 10 ml vial SC SCH ×4 (08:15→22:42)
[2018-03-17] MEDS: Pantoprazole 20 mg EC Tab PO SCH (09:45)
[2018-03-17] MEDS: Multiple Vitamins Tab PO SCH (09:45)
[2018-03-17] MEDS: Lidocaine 5% Patch TD SCH (09:46)
--- NOTE | 2018-03-17 11:00 | CT ---
Date of service: 03/17/2018 PROCEDURE: CT HEAD WITHOUT CONTRAST. HISTORY: fall COMPARISON: Noncontrast head CT 11/19/2015. TECHNIQUE: Axial computed tomography images were obtained through the head/brain without intravenous contrast. Radiation dose: Total exam DLP = 925.24 mGy-cm. This CT exam was performed using one or more of the following dose reduction techniques: Automated exposure control, adjustment of the mA and/or kV according to patient size, and/or use of iterative reconstruction technique. FINDINGS: HEMORRHAGE: No intracranial hemorrhage. BRAIN: Corticomedullary differentiation remains good throughout. Proportional, diffuse cerebral atrophy and chronic microangiopathy are reiterated. No interval mass effect is identified or suspicious extra-axial fluid collection in the midline brain and appears diffusely unremarkable nevertheless. Posterior fossa contents remain unremarkable including the brainstem. There is a probable small arachnoid cyst identified at the medial left posterior fossa once again. VENTRICLES: Unremarkable. No hydrocephalus. CALVARIUM: No destructive bony lesion or displaced fracture identified including through the skullbase. PARANASAL SINUSES: Polyp persist reiterated at the right frontal sinus MASTOID AIR CELLS: Unremarkable as visualized. No inflammatory changes. OTHER FINDINGS: None. IMPRESSION: Stable limited age related neuro degenerative findings without intracranial hemorrhage, cortical edema or mass effect. A small medial left posterior fossa arachnoid cyst is reiterated. Incidental note is made a stable right frontal sinus cyst or polyp.
--- NOTE | 2018-03-17 21:25 | PN ---
Copied To: Mukesh Correia MD Attending MD: Mukesh Correia MD DATE: 03/17/2018 SUBJECTIVE: The patient denies any headache or dizziness. removable prosthodontist reveals mild sinus tachycardia. No reported ventricular arrhythmia. PHYSICAL EXAMINATION VITAL SIGNS: Blood pressure 102/56, heart rate 94, temperature 98.3, and respirations 20. HEENT: Normocephalic. CHEST: Bilateral rhonchi. HEART: S1 and S2, regular. ABDOMEN: Soft. EXTREMITIES: No edema. LABORATORY DATA: INR is 1.[address] scan without contrast, stable, limited age-related new degenerative findings without intracranial hemorrhage, cortical edema, or mass effect. Small medial left posterior fossa arachnoid cyst is reiterated. Pelvic CT scan shows potential acute or subacute but mild anterior wedge compression fracture of L3 is suggested, but no additional potential fracture appreciated throughout the lumbosacral spine and pelvic ring. ASSESSMENT: 1. Status post fall. 2. History of recent left femoral vein deep venous thrombosis with presumptive pulmonary embolus. 3. Chronic obstructive lung disease. 4. History of rectal cancer, status post resection and ileostomy. 5. Anxiety disorder. 6. Potential acute or subacute but mild anterior wedge compression fracture of L3. RECOMMENDATIONS: Continue current Cardizem at 60 mg four times a day, Eliquis at 5 mg twice a day, Glucophage 500 mg twice a day, Xanax 0.5 mg twice a day, and albuterol inhaler every 6 hours. Obtain x-ray of the thoracolumbar spine. Mukesh Correia MD
[2018-03-18] MEDS: Albuterol HFA 90 mcg/actuation (8 g) IH SCH ×4 (02:22→19:54)
[2018-03-18] MEDS ORDERED: Metoprolol 1 mg/ml Inj IVP ONE ×2 (03:56→04:32)
[2018-03-18 05:21] LABS: ALB/GLOB RATIO 1.6 (1.0-2.1); ALBUMIN 4.1 g/dL (3.5-5.0); ALT/SGPT 84 U/L (21-72); AST/SGOT 42 U/L (17-59); BLOOD UREA NITROGEN 15 mg/dL (9-20); GFR AFRICAN-AMERICAN > 60; GFR NON-AFRICAN AMERICAN > 60
[2018-03-18] MEDS: Fluticasone-Salmeterol 250-50mcg Diskus INH SCH ×2 (07:20→19:53)
[2018-03-18] MEDS: Budesonide 0.5 mg/2 ml Inhal Susp UD INH SCH ×2 (07:25→19:53)
[2018-03-18] MEDS ORDERED: Sodium Chloride 0.9% 1,000 ML IV ONE (07:54)
[2018-03-18] MEDS ORDERED: Sodium Chloride 0.9% 500 ML IV ONE (08:00)
[2018-03-18] MEDS ORDERED: Enoxaparin 80 mg Syringe SC STA (08:57)
[2018-03-18] MEDS: (Novolog) Insulin Aspart, Recombinant 100 u/ml 10 ml vial SC SCH ×4 (09:04→22:30)
[2018-03-18] MEDS: Pantoprazole 20 mg EC Tab PO SCH (09:32)
[2018-03-18] MEDS: Multiple Vitamins Tab PO SCH (09:33)
--- NOTE | 2018-03-18 11:22 | RAD ---
Date of service: 03/18/2018 HISTORY: fall COMPARISON: No prior. FINDINGS: BONES: Vertebral bodies are maintained in height. Normal alignment maintained. Minimal dextroscoliosis. No lytic or blastic osseous lesion. DISC SPACES: Normal. SOFT TISSUES: Normal. OTHER FINDINGS: None. IMPRESSION: Minimal dextroscoliosis. No fracture/dislocation.
[2018-03-18] MEDS: Lidocaine 5% Patch TD SCH (11:35)
[2018-03-18] MEDS: Sodium Chloride 0.9% 1,000 ML IV SCH ×2 (11:55→21:00)
--- NOTE | 2018-03-18 17:03 | MRI ---
Date of service: 03/18/2018. PROCEDURE: MR LUMBAR SPINE WITHOUT CONTRAST. HISTORY: Fracture. COMPARISON: Comparison made with radiographs of the thoracic spine 03/18/2018 TECHNIQUE: Multiecho multiplanar sequences were performed through the lumbar spine without the use of intravenous contrast. . FINDINGS: Current study reveals acute/subacute compression deformity L1 segment with slight on concave deformity of the superior and to a lesser degree inferior endplate margins. There is a superior endplate deformity of the L2 segment with some minimal residual bright signal along the endplates suggesting some minor edema as well. Chronic appearing endplate deformities of the inferior and superior L3 and L4 endplates as well. No evidence of retropulsion of fragments. Remaining vertebral bodies otherwise exhibit normal stature. Vertebral bodies and facets normally aligned. Minor multilevel degenerative spondylosis. T12-L1: No disc herniation, spinal canal stenosis or neural foraminal narrowing. L1-2: There is mild disc desiccation and mild asymmetric disc bulging slightly larger on the left than the right. Facet joints are mildly hypertrophic. Central canal and exit foramina. . L2-3: Mild age related disc desiccation. Disc space height maintained. Small broad-based bulge of the posterior annulus seen extending into the proximal inferior margin of the right and to a lesser degree left exit foramina. . There is some minor flattening of the ventral surface of the thecal sac however the overall central canal adequate. Facets are hypertrophic. Exit foramina are adequate. L3-4: Mild age related disc desiccation Mild posterior disc space narrowing. Small central and bilateral broad-based disc bulge ridge complex extends slightly into the proximal inferior margins of both exit foramina. The disc results in mild flattening of the ventral surface of thecal sac and mild posterior displacement of the nearly exiting intrathecal L4 nerve roots. Facets are hypertrophic. Exit foramina are slightly narrowed more so on the left than the right. L4-5: There is disc desiccation and minor posterior disc space narrowing. Minimal broad-based bulge of the posterior annulus present. Facet joints are hypertrophic. Central canal and exit foramina adequate. L5-S1: Minor age related disc desiccation. Disc space height maintained. No disc herniation or significant disc bulge. Minor facet arthropathy. Central canal exit foramina adequate. OTHER FINDINGS: Incidental note made of a distended urinary bladder. IMPRESSION: There is an acute/ subacute fracture of the L1 segment with mild concave deformity of the superior endplate. There is also chronic appearing endplate deformity superior aspect of the L3 segment though some minimal residual endplate edema remains. Chronic endplate deformities of the inferior and superior L3 and L4 segments respectively of. No evidence of retropulsion of fragments. Mild multilevel degenerative spondylosis as as detailed above.
--- NOTE | 2018-03-18 23:41 | CP.PCM.PN ---
Subjective - Date & Time of Evaluation Date of Evaluation: 03/17/18 Time of Evaluation: 20:40 - Subjective Subjective: pt seen and examined at bedside Objective - Vital Signs/Intake and Output Vital Signs (last 24 hours): Temp Pulse Resp BP Pulse Ox 97.8 F 116 H 20 105/72 98 03/18/18 17:08 03/18/18 22:33 03/18/18 17:08 03/18/18 22:33 03/18/18 17:08 Intake and Output: 03/18/18 03/19/18 18:59 06:59 Intake Total 1640 Output Total 800 Balance 840 - Medications Medications: Current Medications Albuterol (Ventolin Hfa 90 Mcg/Actuation (8 G)) 1 puff IH RQ6 [facility] Last Admin: 03/18/18 19:54 Dose: 1 puff Alprazolam (Xanax) 0.5 mg PO BID [facility] Last Admin: 03/18/18 17:02 Dose: 0.5 mg Apixaban (Eliquis) 5 mg PO BID [facility] Last Admin: 03/18/18 17:02 Dose: 5 mg Budesonide (Pulmicort Respules) 0.5 mg INH RQ12 [facility] Last Admin: 03/18/18 19:53 Dose: 0.5 mg Cyclobenzaprine HCl (Flexeril) 5 mg PO BID [facility] Last Admin: 03/18/18 17:02 Dose: 5 mg Diltiazem HCl (Cardizem) 60 mg PO QID [facility] Last Admin: 03/18/18 22:33 Dose: 60 mg Sodium Chloride (Sodium Chloride 0.9%) 1,000 mls @ 100 mls/hr IV .Q10H [facility] Last Admin: 03/18/18 21:00 Dose: 100 mls/hr Insulin Aspart (Novolog) 0 unit SC ACHS [facility] PRN Reason: Protocol Last Admin: 03/18/18 22:30 Dose: Not Given Lidocaine (Lidoderm) 2 ea TD DAILY [facility] Last Admin: 03/18/18 11:35 Dose: 2 ea Metformin HCl (Glucophage) 500 mg PO BIDCC [facility] Last Admin: 03/18/18 16:58 Dose: 500 mg Metronidazole (Flagyl) 500 mg PO Q8H [facility] PRN Reason: Protocol Last Admin: 03/18/18 17:02 Dose: 500 mg Morphine Sulfate (Morphine) 2 mg IV Q4 PRN PRN Reason: Pain, moderate (4-7) Last Admin: 03/18/18 21:16 Dose: 2 mg Multivitamins (Hexavitamin) 1 tab PO DAILY [facility] Last Admin: 03/18/18 09:33 Dose: 1 tab Ondansetron HCl (Zofran Inj) 4 mg IVP Q6 PRN PRN Reason: nausea Last Admin: 03/18/18 09:05 Dose: 4 mg Pantoprazole Sodium (Protonix Ec Tab) 20 mg PO DAILY [facility] Last Admin: 03/18/18 09:32 Dose: 20 mg Prednisone (Prednisone Tab) 5 mg PO DAILY [facility] Last Admin: 03/18/18 09:32 Dose: 5 mg Pregabalin (Lyrica) 75 mg PO BID [facility] Last Admin: 03/18/18 17:02 Dose: 75 mg Roflumilast (Daliresp) 500 mcg PO DAILY [facility] Last Admin: 03/18/18 09:33 Dose: 500 mcg Fluticasone/Salmeterol (Advair Diskus 250/50) 1 puff INH RBID [facility] Last Admin: 03/18/18 19:53 Dose: Not Given - Labs Labs: 03/16/18 05:59 03/18/18 04:44 PT 14.5 SECONDS (9.7-12.2) H 03/16/18 17:16 INR 1.3 03/16/18 17:16 APTT 31 SECONDS (21-34) 03/16/18 17:16
--- NOTE | 2018-03-18 23:44 | CP.PCM.PN ---
Subjective - Date & Time of Evaluation Date of Evaluation: 03/18/18 Time of Evaluation: 19:00 - Subjective Subjective: pt seen and examined at bedside Objective - Vital Signs/Intake and Output Vital Signs (last 24 hours): Temp Pulse Resp BP Pulse Ox 97.8 F 116 H 20 105/72 98 03/18/18 17:08 03/18/18 22:33 03/18/18 17:08 03/18/18 22:33 03/18/18 17:08 Intake and Output: 03/18/18 03/19/18 18:59 06:59 Intake Total 1640 Output Total 800 Balance 840 - Medications Medications: Current Medications Albuterol (Ventolin Hfa 90 Mcg/Actuation (8 G)) 1 puff IH RQ6 [facility] Last Admin: 03/18/18 19:54 Dose: 1 puff Alprazolam (Xanax) 0.5 mg PO BID [facility] Last Admin: 03/18/18 17:02 Dose: 0.5 mg Apixaban (Eliquis) 5 mg PO BID [facility] Last Admin: 03/18/18 17:02 Dose: 5 mg Budesonide (Pulmicort Respules) 0.5 mg INH RQ12 [facility] Last Admin: 03/18/18 19:53 Dose: 0.5 mg Cyclobenzaprine HCl (Flexeril) 5 mg PO BID [facility] Last Admin: 03/18/18 17:02 Dose: 5 mg Diltiazem HCl (Cardizem) 60 mg PO QID [facility] Last Admin: 03/18/18 22:33 Dose: 60 mg Sodium Chloride (Sodium Chloride 0.9%) 1,000 mls @ 100 mls/hr IV .Q10H [facility] Last Admin: 03/18/18 21:00 Dose: 100 mls/hr Insulin Aspart (Novolog) 0 unit SC ACHS [facility] PRN Reason: Protocol Last Admin: 03/18/18 22:30 Dose: Not Given Lidocaine (Lidoderm) 2 ea TD DAILY [facility] Last Admin: 03/18/18 11:35 Dose: 2 ea Metformin HCl (Glucophage) 500 mg PO BIDCC [facility] Last Admin: 03/18/18 16:58 Dose: 500 mg Metronidazole (Flagyl) 500 mg PO Q8H [facility] PRN Reason: Protocol Last Admin: 03/18/18 17:02 Dose: 500 mg Morphine Sulfate (Morphine) 2 mg IV Q4 PRN PRN Reason: Pain, moderate (4-7) Last Admin: 03/18/18 21:16 Dose: 2 mg Multivitamins (Hexavitamin) 1 tab PO DAILY [facility] Last Admin: 03/18/18 09:33 Dose: 1 tab Ondansetron HCl (Zofran Inj) 4 mg IVP Q6 PRN PRN Reason: nausea Last Admin: 03/18/18 09:05 Dose: 4 mg Pantoprazole Sodium (Protonix Ec Tab) 20 mg PO DAILY [facility] Last Admin: 03/18/18 09:32 Dose: 20 mg Prednisone (Prednisone Tab) 5 mg PO DAILY [facility] Last Admin: 03/18/18 09:32 Dose: 5 mg Pregabalin (Lyrica) 75 mg PO BID [facility] Last Admin: 03/18/18 17:02 Dose: 75 mg Roflumilast (Daliresp) 500 mcg PO DAILY [facility] Last Admin: 03/18/18 09:33 Dose: 500 mcg Fluticasone/Salmeterol (Advair Diskus 250/50) 1 puff INH RBID [facility] Last Admin: 03/18/18 19:53 Dose: Not Given - Labs Labs: 03/16/18 05:59 03/18/18 04:44 PT 14.5 SECONDS (9.7-12.2) H 03/16/18 17:16 INR 1.3 03/16/18 17:16 APTT 31 SECONDS (21-34) 03/16/18 17:16
[2018-03-19] MEDS: Budesonide 0.5 mg/2 ml Inhal Susp UD INH SCH ×2 (07:30→20:26)
[2018-03-19] MEDS: Albuterol HFA 90 mcg/actuation (8 g) IH SCH ×3 (07:30→20:27)
[2018-03-19] MEDS: (Novolog) Insulin Aspart, Recombinant 100 u/ml 10 ml vial SC SCH ×5 (07:50→21:39)
[2018-03-19] MEDS: Pantoprazole 20 mg EC Tab PO SCH (09:57)
[2018-03-19] MEDS: Lidocaine 5% Patch TD SCH (09:57)
[2018-03-19] MEDS: Multiple Vitamins Tab PO SCH (09:58)
[2018-03-19] MEDS: Sodium Chloride 0.9% 1,000 ML IV SCH ×3 (10:24→19:59)
--- NOTE | 2018-03-19 12:59 | CON ---
Copied To: Kaylin Weinberg MD Attending MD: Kaylin Weinberg MD DATE: 03/18/2018 I was called for GI consultation by the admitting MD. The patient is seen and fully examined on 03/18/2018 as requested by the admitting medical staff. The entire chart is reviewed including but not limited to most recent lab and radiology study results, current and the previous medication list, current and the previous medical events, allergies to medication list as well as all the available current and the previous medical records. Case discussed with the staff at length. This is a 67-year-old male who was admitted to the hospital through the emergency room with the main complaint of severe bilateral hip pain, lower extremities and back pain reported an abdominal surgery about seven to eight days ago prior to this admission, but no reported active bleeding, chest pain, palpitation or significant shortness of breath. No reported chills or fever. No reported loss of consciousness or head surgery. PAST MEDICAL HISTORY: Including but not limited to, 1. Bronchial asthma with bronchitis. 2. Severe anxiety syndrome. 3. Osteoarthritis. 4. Known history of cardiac arrhythmia, hypertension, congestive heart failure with diabetes mellitus. 5. Known history of hyperlipidemia, pneumonia with chronic renal dysfunction with reported sleep apnea. 6. Peptic ulcer disease. 7. The patient had been on CPAP on and off recently. 8. Reported recent partial bowel resection. FAMILY HISTORY: Unknown. SOCIAL HISTORY: Positive for cigarette smoking, quit about and half years ago. No reported recent history of alcohol intake. CURRENT MEDICATIONS: Post-admission medication lists were reviewed. ALLERGIES TO MEDICATIONS: UNCLEAR. After being admitted to the hospital, the patient was found to have low hemoglobin, initially, of 9.5, hematocrit 29.1, with leukocytosis of 20.4, but normal platelet count. The patient had radiology study results post-admission including CAT scan of the pelvis, which showed evidence of postoperative changes with right lower quadrant ostomy with colon diverticulosis. Also showed mild compression fracture of the L3, L4, and L5. PHYSICAL EXAMINATION: GENERAL: A 67-year-old male complaining of abdominal pain with hip pain and diarrhea, but no reported actual chest pain. VITAL SIGNS: The patient is afebrile with heart rate of 96, respiratory rate 16 to 18, blood pressure 122/76. HEENT: Showed pale, dry oral mucous membrane. Nonicteric sclerae. LUNGS: Few scattered bilateral crepitation with few rhonchi bilaterally and decreased air entry at bases. HEART: Positive S1 and S2 with increased rate. ABDOMEN: Soft with slight generalized tenderness and distention. Colostomy tube is in place with semiliquid semisolid fecal material. No mass or organomegaly. No rebound tenderness or guarding. EXTREMITIES: With lower extremities mild edematous changes. No clubbing or cyanosis. 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 No reported new focal deficits. IMPRESSION: 1. Re-exacerbation of peptic ulcer disease. 2. Change of bowel movement habit of unclear etiology. 3. Status post partial bowel resection with ostomy formation. 4. Multiple past medical history as above. 5. Anemia, most likely secondary to above. SUGGESTIONS: 1. Agree with your plan. 2. Cancer markers. 3. Complete stool workup. 4. Flagyl IV. 5. Proton pump inhibitors IV. 6. Due to the patient's recently diagnosed compression fracture of the lumbar spine, no aggressive GI workup in the meantime until the patient is more stable clinically, as needed. 7. Further recommendation to follow. Kaylin Weinberg MD
[2018-03-19] MEDS: Fluticasone-Salmeterol 250-50mcg Diskus INH SCH ×2 (13:24→20:26)
--- NOTE | 2018-03-19 14:59 | CP.PCM.PN ---
Subjective - Date & Time of Evaluation Date of Evaluation: 03/19/18 Time of Evaluation: 14:15 - Subjective Subjective: PGY-4 GI Fellow Prog Note Pt sleeping in bed when seen this PM. States he still has some abd pain with eating. Keeping some food down. Passing stool into ostomy. 5 point ROS negative other than stated above Objective - Vital Signs/Intake and Output Vital Signs (last 24 hours): Temp Pulse Resp BP Pulse Ox 97.8 F 109 H 18 110/73 98 03/19/18 07:00 03/19/18 13:09 03/19/18 07:00 03/19/18 13:09 03/19/18 07:00 - Medications Medications: Current Medications Albuterol (Ventolin Hfa 90 Mcg/Actuation (8 G)) 1 puff IH RQ6 [facility] Last Admin: 03/19/18 13:25 Dose: 1 puff Alprazolam (Xanax) 0.5 mg PO BID [facility] Last Admin: 03/19/18 09:58 Dose: 0.5 mg Apixaban (Eliquis) 5 mg PO BID [facility] Last Admin: 03/19/18 09:58 Dose: 5 mg Belladonna/Phenobarbital () 1 tab PO BID [facility] Budesonide (Pulmicort Respules) 0.5 mg INH RQ12 [facility] Last Admin: 03/19/18 07:30 Dose: 0.5 mg Cyclobenzaprine HCl (Flexeril) 5 mg PO BID [facility] Last Admin: 03/19/18 09:58 Dose: 5 mg Diltiazem HCl (Cardizem) 60 mg PO QID [facility] Last Admin: 03/19/18 13:09 Dose: 60 mg Sodium Chloride (Sodium Chloride 0.9%) 1,000 mls @ 100 mls/hr IV .Q10H [facility] Last Admin: 03/19/18 10:24 Dose: 100 mls/hr Insulin Aspart (Novolog) 0 unit SC ACHS [facility] PRN Reason: Protocol Last Admin: 03/19/18 12:24 Dose: 2 units Lidocaine (Lidoderm) 2 ea TD DAILY [facility] Last Admin: 03/19/18 09:57 Dose: 2 ea Metformin HCl (Glucophage) 500 mg PO BIDCC [facility] Last Admin: 03/19/18 09:58 Dose: 500 mg Metronidazole (Flagyl) 500 mg PO Q8H [facility] PRN Reason: Protocol Last Admin: 03/19/18 09:57 Dose: 500 mg Morphine Sulfate (Morphine) 2 mg IV Q4 PRN PRN Reason: Pain, moderate (4-7) Last Admin: 03/19/18 10:02 Dose: 2 mg Multivitamins (Hexavitamin) 1 tab PO DAILY [facility] Last Admin: 03/19/18 09:58 Dose: 1 tab Ondansetron HCl (Zofran Inj) 4 mg IVP Q6 PRN PRN Reason: nausea Last Admin: 03/18/18 09:05 Dose: 4 mg Pantoprazole Sodium (Protonix Ec Tab) 20 mg PO DAILY [facility] Last Admin: 03/19/18 09:57 Dose: 20 mg Prednisone (Prednisone Tab) 5 mg PO DAILY [facility] Last Admin: 03/19/18 09:58 Dose: 5 mg Pregabalin (Lyrica) 75 mg PO BID [facility] Last Admin: 03/19/18 09:58 Dose: 75 mg Roflumilast (Daliresp) 500 mcg PO DAILY [facility] Last Admin: 03/19/18 09:58 Dose: 500 mcg Fluticasone/Salmeterol (Advair Diskus 250/50) 1 puff INH RBID [facility] Last Admin: 03/19/18 13:24 Dose: Not Given Sucralfate (Carafate Tab) 1 gm PO QID [facility] - Labs Labs: 03/16/18 05:59 03/18/18 04:44 PT 14.5 SECONDS (9.7-12.2) H 03/16/18 17:16 INR 1.3 03/16/18 17:16 APTT 31 SECONDS (21-34) 03/16/18 17:16 - Constitutional Appears: Non-toxic, No Acute Distress - Eye Exam Eye Exam: EOMI. absent: Conjunctival injection, Scleral icterus - Respiratory Exam Respiratory Exam: NORMAL BREATHING PATTERN. absent: Accessory Muscle Use, Prolonged Expiratory Phase, Wheezes, Respiratory Distress - GI/Abdominal Exam GI & Abdominal Exam: Distended (mildly), Soft, Tenderness (in epigastrum), Normal Bowel Sounds. absent: Guarding - Neurological Exam Neurological Exam: Alert, Awake, CN II-XII Intact Assessment and Plan - Assessment and Plan (Free Text) Assessment: # Abd Pain: Perhaps related to known PUD. Pt with BMs in ostomy. No sign of melena, nor hematochezia. # H/o Rectal CA s/p XRT and ileostomy # LE DVT on AC and s/p IVF filter Plan: - Add carafate and - Cont PPI - May need EGD if symptoms persits - Cont flagyl for now Pt discussed with Dr. Kirk over phone. Please see his attestation for final recs/changes.
[2018-03-19] MEDS: Belladonna-Phenobarbital PO SCH (17:39)
--- NOTE | 2018-03-20 00:04 | CP.PCM.PN ---
Subjective - Date & Time of Evaluation Date of Evaluation: 03/19/18 Time of Evaluation: 18:00 - Subjective Subjective: Patient seen and examined. Alert, awake, has sob with exertion. Objective - Vital Signs/Intake and Output Vital Signs (last 24 hours): Temp Pulse Resp BP Pulse Ox 98.3 F 109 H 20 108/69 99 03/19/18 15:05 03/19/18 20:27 03/19/18 15:05 03/19/18 15:05 03/19/18 15:05 Intake and Output: 03/19/18 03/20/18 18:59 06:59 Intake Total 700 1180 Output Total 1300 1050 Balance -600 130 - Medications Medications: Current Medications Albuterol (Ventolin Hfa 90 Mcg/Actuation (8 G)) 1 puff IH RQ6 [facility] Last Admin: 03/19/18 20:27 Dose: Not Given Alprazolam (Xanax) 0.5 mg PO BID [facility] Last Admin: 03/19/18 17:39 Dose: 0.5 mg Apixaban (Eliquis) 5 mg PO BID [facility] Last Admin: 03/19/18 17:39 Dose: 5 mg Belladonna/Phenobarbital () 1 tab PO BID [facility] Last Admin: 03/19/18 17:39 Dose: 1 tab Budesonide (Pulmicort Respules) 0.5 mg INH RQ12 [facility] Last Admin: 03/19/18 20:26 Dose: 0.5 mg Cyclobenzaprine HCl (Flexeril) 5 mg PO BID [facility] Last Admin: 03/19/18 17:39 Dose: 5 mg Diltiazem HCl (Cardizem) 60 mg PO QID [facility] Last Admin: 03/19/18 21:29 Dose: 60 mg Sodium Chloride (Sodium Chloride 0.9%) 1,000 mls @ 100 mls/hr IV .Q10H [facility] Last Admin: 03/19/18 19:59 Dose: 100 mls/hr Insulin Aspart (Novolog) 0 unit SC ACHS [facility] PRN Reason: Protocol Last Admin: 03/19/18 21:39 Dose: Not Given Lidocaine (Lidoderm) 2 ea TD DAILY [facility] Last Admin: 03/19/18 09:57 Dose: 2 ea [facility] Last Admin: 03/19/18 17:39 Dose: 500 mg Metronidazole (Flagyl) 500 mg PO Q8H [facility] PRN Reason: Protocol Last Admin: 03/19/18 17:39 Dose: 500 mg Morphine Sulfate (Morphine) 2 mg IV Q4 PRN PRN Reason: Pain, moderate (4-7) Last Admin: 03/19/18 22:51 Dose: 2 mg Multivitamins (Hexavitamin) 1 tab PO DAILY [facility] Last Admin: 03/19/18 09:58 Dose: 1 tab Ondansetron HCl (Zofran Inj) 4 mg IVP Q6 PRN PRN Reason: nausea Last Admin: 03/18/18 09:05 Dose: 4 mg Pantoprazole Sodium (Protonix Ec Tab) 20 mg PO DAILY [facility] Last Admin: 03/19/18 09:57 Dose: 20 mg Prednisone (Prednisone Tab) 5 mg PO DAILY [facility] Last Admin: 03/19/18 09:58 Dose: 5 mg Pregabalin (Lyrica) 75 mg PO BID [facility] Last Admin: 03/19/18 17:39 Dose: 75 mg Roflumilast (Daliresp) 500 mcg PO DAILY [facility] Last Admin: 03/19/18 09:58 Dose: 500 mcg Fluticasone/Salmeterol (Advair Diskus 250/50) 1 puff INH RBID [facility] Last Admin: 03/19/18 20:26 Dose: Not Given Sucralfate (Carafate Tab) 1 gm PO QID [facility] Last Admin: 03/19/18 21:29 Dose: 1 gm - Labs Labs: 03/16/18 05:59 03/18/18 04:44 PT 14.5 SECONDS (9.7-12.2) H 03/16/18 17:16 INR 1.3 03/16/18 17:16 APTT 31 SECONDS (21-34) 03/16/18 17:16
[2018-03-20] MEDS: Albuterol HFA 90 mcg/actuation (8 g) IH SCH ×4 (01:12→19:31)
[2018-03-20] MEDS: Sodium Chloride 0.9% 1,000 ML IV SCH ×2 (06:38→22:42)
--- NOTE | 2018-03-20 06:53 | CON ---
Copied To: Jg Al MD Attending MD: Jg Al MD DATE: 03/19/2018 REASON FOR CONSULTATION: Lumbar fracture. HISTORY OF PRESENT ILLNESS: The patient is a 67-year-old young gentleman who states he fell at home last week when his cane slipped. He states he fell on his buttock and complained of immediate pain at that time. He was brought to the hospital on 03/16/2018 and admitted. His plain x-rays show what appeared to be a possible fracture at the superior endplate of L2 and at the inferior endplate of L3. He has severe pain if he tries to roll side to side or tries to get up out of the bed. He denies any radicular symptoms. No loss of bladder control. He has a colostomy which evidently was just done a week or so ago. PAST MEDICAL HISTORY: Significant for congestive heart failure, hypertension, hypercholesterolemia, SVT, COPD, sleep apnea, cataracts, chronic kidney disease, diabetes, and obviously the abdominal issue being the colostomy. MEDICATIONS: Listed on the chart. ALLERGIES: HE IS ALLERGIC TO TYLENOL THAT GIVES HIM A RASH. FISH LEADS TO SWELLING. SHRIMP GIVES HIM SHORTNESS OF BREATH AND HE HAD AN ANAPHYLACTIC REACTION IN THE PAST TO IV DYE. PAST SURGICAL HISTORY: Significant for the colostomy as well as cataracts, cardiac catheterization, and pulmonary surgery. He is listed having partial colon resection with a right ileostomy. Evidently this is for rectal carcinoma. Evidently, he also had a near occlusive femoral vein DVT, and he was on Eliquis after placement of an IVC filter. PHYSICAL EXAMINATION: On examination, he complains of some tenderness to palpation in the lower lumbosacral spine, but he states he is most tender in the upper lumbar region. He moves both lower extremities fully and activity. Grossly his sensory and motor exams are intact in both legs. The patient had a CT scan of his pelvis done in the emergency room, and subsequently, had an MRI of the lumbar spine done yesterday. Interestingly enough, it does not show any real acute changes at L3 nor L4 but it does show an acute superior endplate fracture at L1 which seems to be centered anterior. Bony posterior bony cortex is completely intact throughout. IMPRESSION: Superior endplate fracture of L1. I think he could be safely mobilized but I would order a lightweight extension orthosis for him. I do not think he needs a full body brace such as a TLSO, and that would be difficult to place given his colostomy. However, the right leg extension orthosis will give much more room, and would be restricting around his chest, given his COPD, and other pulmonary conditions. He can be set at the side of his bed even without the brace for now as his pain allows, and certainly, can be up ambulating once he has his extension brace. The natural history is, this will remain painful for 2 to 3 weeks after the onset, and then it should start to quiet down as the fracture starts to heal and usually takes 2 to 3 months for complete healing to take place. Thank you for allowing us to participate in the care of your patient. Jg Al MD
--- NOTE | 2018-03-20 07:06 | PN ---
Copied To: Kaylin Weinberg MD Attending MD: Kaylin Weinberg MD DATE: 03/19/2018 LOCATION: 658, bed A. SUBJECTIVE: This is a 67-year-old male seen and examined in rounds without significant clinical changes, complaining of lower back pain with lower abdominal discomfort. There was bowel movement through his colostomy tube. The entire chart is reviewed including but not limited to the most recent lab and radiology study results, current and the previous medication list, current and the previous medical events. Today, his blood glucose level is 166. The patient had lumbar spine MRI, official report is seen indicative of fracture of L1 segment. PHYSICAL EXAMINATION: GENERAL: A 67-year-old male appeared to be awake, alert, and oriented. VITAL SIGNS: Afebrile with pulse of 94, respiratory rate 20 to 22, blood pressure of 110/66. HEENT: Showed pale, dry oral mucous membrane. Nonicteric sclerae. LUNGS: Few scattered crepitation. Decreased air entry at bases. HEART: Positive S1 and S2. ABDOMEN: Soft. Colostomy stoma is intact without evidence of anterior abdominal wall cellulitis. No mass or organomegaly. No rebound tenderness or guarding. EXTREMITIES: Lower extremity, edematous changes. No clubbing or cyanosis. VP PACKAGING: No reported new neurological deficits, sensory, or motor. IMPRESSION: 1. Reported history of colon carcinoma with status post partial bowel resection with ileostomy. 2. Known history of left femoral vein deep venous thrombosis with reported possible pulmonary embolism. 3. Chronic obstructive pulmonary disease, by history. 4. L1 fracture by radiology study results. 5. Compression fracture of L3 by radiology study result. 6. Re-exacerbation of peptic ulcer disease. SUGGESTIONS: 1. Continue current management. 2. Repeat CEA level. 3. Complete stool workup. 4. Further recommendation to follow. Kaylin Weinberg MD
[2018-03-20] MEDS: Fluticasone-Salmeterol 250-50mcg Diskus INH SCH ×2 (07:22→19:30)
[2018-03-20] MEDS: Budesonide 0.5 mg/2 ml Inhal Susp UD INH SCH ×2 (07:22→19:30)
[2018-03-20] MEDS: (Novolog) Insulin Aspart, Recombinant 100 u/ml 10 ml vial SC SCH ×4 (07:55→22:41)
[2018-03-20 07:56] LABS: HEMOGLOBIN 9.7 g/dL (12.0-18.0); MEAN CORPUSCULAR HEMOGLOBIN 22.6 pg (27.0-31.0); MEAN CORPUSCULAR HGB CONC 32.7 g/dL (33.0-37.0); MEAN PLATELET VOLUME 7.8 fL (7.2-11.7); RBC 4.29 Mil/uL (4.40-5.90); WHITE BLOOD COUNT 9.6 K/uL (4.8-10.8)
[2018-03-20 08:12] LABS: BLOOD UREA NITROGEN 3 mg/dL (9-20); GFR AFRICAN-AMERICAN > 60; GFR NON-AFRICAN AMERICAN > 60
[2018-03-20] MEDS: Pantoprazole 20 mg EC Tab PO SCH (09:53)
[2018-03-20] MEDS: Belladonna-Phenobarbital PO SCH ×2 (09:53→18:37)
[2018-03-20] MEDS: Multiple Vitamins Tab PO SCH (09:53)
[2018-03-20] MEDS: Lidocaine 5% Patch TD SCH (09:53)
--- NOTE | 2018-03-21 00:17 | CP.PCM.PN ---
Subjective - Date & Time of Evaluation Date of Evaluation: 03/20/18 Time of Evaluation: 18:00 - Subjective Subjective: Pt seen and examined at bedside, has been evaluated by neurosurgery. c/o intractable back pain, has L1 vertebral fracture, he has h/o history of extensive cortocosteroid use, stool for C.diiff neg. colostomy bag with loose green stool Objective - Vital Signs/Intake and Output Vital Signs (last 24 hours): Temp Pulse Resp BP Pulse Ox 99.0 F 105 H 20 114/73 99 03/20/18 15:17 03/20/18 15:17 03/20/18 15:17 03/20/18 15:17 03/20/18 15:17 Intake and Output: 03/20/18 03/21/18 18:59 06:59 Intake Total 1200 Output Total 1600 500 Balance -400 -500 - Medications Medications: Current Medications Albuterol (Ventolin Hfa 90 Mcg/Actuation (8 G)) 1 puff IH RQ6 [facility] Last Admin: 03/20/18 19:31 Dose: 1 puff Alprazolam (Xanax) 0.5 mg PO BID [facility] Last Admin: 03/20/18 18:37 Dose: 0.5 mg Apixaban (Eliquis) 5 mg PO BID [facility] Last Admin: 03/20/18 18:37 Dose: 5 mg Belladonna/Phenobarbital () 1 tab PO BID [facility] Last Admin: 03/20/18 18:37 Dose: 1 tab Budesonide (Pulmicort Respules) 0.5 mg INH RQ12 [facility] Last Admin: 03/20/18 19:30 Dose: 0.5 mg Cyclobenzaprine HCl (Flexeril) 5 mg PO BID [facility] Last Admin: 03/20/18 18:37 Dose: 5 mg Diltiazem HCl (Cardizem) 60 mg PO QID [facility] Last Admin: 03/20/18 22:40 Dose: 60 mg Sodium Chloride (Sodium Chloride 0.9%) 1,000 mls @ 100 mls/hr IV .Q10H [facility] Last Admin: 03/20/18 22:42 Dose: Not Given Insulin Aspart (Novolog) 0 unit SC ACHS [facility] PRN Reason: Protocol Last Admin: 03/20/18 22:41 Dose: Not Given Lidocaine (Lidoderm) 2 ea TD DAILY [facility] Last Admin: 03/20/18 09:53 Dose: 2 ea Metformin HCl (Glucophage) 500 mg PO BIDCC [facility] Last Admin: 03/20/18 17:37 Dose: 500 mg Metronidazole (Flagyl) 500 mg PO Q8H [facility] PRN Reason: Protocol Last Admin: 03/20/18 18:37 Dose: 500 mg Morphine Sulfate (Morphine) 2 mg IV Q4 PRN PRN Reason: Pain, moderate (4-7) Last Admin: 03/20/18 20:14 Dose: 2 mg Multivitamins (Hexavitamin) 1 tab PO DAILY [facility] Last Admin: 03/20/18 09:53 Dose: 1 tab Ondansetron HCl (Zofran Inj) 4 mg IVP Q6 PRN PRN Reason: nausea Last Admin: 03/18/18 09:05 Dose: 4 mg Pantoprazole Sodium (Protonix Ec Tab) 20 mg PO DAILY [facility] Last Admin: 03/20/18 09:53 Dose: 20 mg Prednisone (Prednisone Tab) 5 mg PO DAILY [facility] Last Admin: 03/20/18 09:53 Dose: 5 mg Pregabalin (Lyrica) 75 mg PO BID [facility] Last Admin: 03/20/18 18:37 Dose: 75 mg Roflumilast (Daliresp) 500 mcg PO DAILY [facility] Last Admin: 03/20/18 09:53 Dose: 500 mcg Fluticasone/Salmeterol (Advair Diskus 250/50) 1 puff INH RBID [facility] Last Admin: 03/20/18 19:30 Dose: Not Given Sucralfate (Carafate Tab) 1 gm PO QID [facility] Last Admin: 03/20/18 22:40 Dose: 1 gm - Labs Labs: 03/20/18 07:47 03/20/18 07:47 PT 14.5 SECONDS (9.7-12.2) H 03/16/18 17:16 INR 1.3 03/16/18 17:16 APTT 31 SECONDS (21-34) 03/16/18 17:16 - Constitutional Appears: Well - Eye Exam Eye Exam: EOMI, Normal appearance, PERRL Pupil Exam: NORMAL ACCOMODATION, PERRL - Cardiovascular Exam Cardiovascular Exam: REGULAR RHYTHM, +S1, +S2. absent: Murmur - GI/Abdominal Exam GI & Abdominal Exam: Soft, Normal Bowel Sounds. absent: Tenderness - Rectal Exam Rectal Exam: Deferred Assessment and Plan (1) Intractable back pain Status: Acute (2) Abdominal pain Status: Acute (3) Asthma Status: Acute (4) COPD (chronic obstructive pulmonary disease) Status: Acute (5) Allergic rhinitis Status: Chronic (6) Steroid-induced diabetes Status: Chronic
[2018-03-21] MEDS: Albuterol HFA 90 mcg/actuation (8 g) IH SCH ×3 (01:16→20:34)
[2018-03-21] MEDS: Sodium Chloride 0.9% 1,000 ML IV SCH ×2 (02:09→07:45)
[2018-03-21 06:38] LABS: BASO # 0.1 K/uL (0.0-0.2); EOS # 0.3 K/uL (0.0-0.7); EOS % 3.7 % (0.0-4.0); HEMOGLOBIN 9.7 g/dL (12.0-18.0); LYMPH # 1.4 K/uL (1.0-4.3); LYMPH % 18.4 % (20.0-40.0); MEAN CELL VOLUME 67.4 fL (80.0-94.0); MEAN CORPUSCULAR HEMOGLOBIN 22.3 pg (27.0-31.0); MEAN CORPUSCULAR HGB CONC 33.1 g/dL (33.0-37.0); MEAN PLATELET VOLUME 7.6 fL (7.2-11.7); MONO # 0.5 K/uL (0.0-0.8); MONO % 6.8 % (0.0-10.0); NEUT # 5.3 K/uL (1.8-7.0); NEUT % 70.1 % (50.0-75.0); RBC 4.33 Mil/uL (4.40-5.90); RED CELL DISTRIBUTION WIDTH 20.8 % (11.5-14.5); WHITE BLOOD COUNT 7.5 K/uL (4.8-10.8)
[2018-03-21] MEDS: Budesonide 0.5 mg/2 ml Inhal Susp UD INH SCH ×2 (07:24→20:34)
[2018-03-21] MEDS: Fluticasone-Salmeterol 250-50mcg Diskus INH SCH ×2 (07:26→20:33)
[2018-03-21] MEDS: (Novolog) Insulin Aspart, Recombinant 100 u/ml 10 ml vial SC SCH ×4 (08:00→21:00)
[2018-03-21] MEDS: Multiple Vitamins Tab PO SCH (10:01)
[2018-03-21] MEDS: Belladonna-Phenobarbital PO SCH ×2 (10:01→18:39)
[2018-03-21] MEDS: Pantoprazole 20 mg EC Tab PO SCH (10:01)
[2018-03-21] MEDS: Lidocaine 5% Patch TD SCH (10:04)
[2018-03-21] MEDS: Bismuth Subsalicylate 262 mg Chew Tab PO SCH ×2 (11:37→18:40)
--- NOTE | 2018-03-21 19:40 | PN ---
Copied To: Kaylin Weinberg MD Attending MD: Kaylin Weinberg MD DATE: 03/21/2018 LOCATION: 658, bed A SUBJECTIVE: This 67-year-old male seen and examined in rounds without significant clinical changes or reported active bleeding but with epigastric midabdominal as well as back pain related to possible L1 vertebral fracture. Patient still has loose bowel movement through his colostomy tube and C. diff result was reported to be negative. Patient denied any chest pain, palpitation, significant shortness of breath, chills or fever, but nausea with mild dyspepsia. The entire chart is reviewed including but not limited to the most recent lab and radiology study results, current and the previous medication list, current and previous medical events. LABORATORY DATA: Today's lab showed hemoglobin 9.7, hematocrit 29.2 with low indices highly suggestive of hypochromic microcytic anemia, but with normal platelet count with blood glucose level of 86. PHYSICAL EXAMINATION GENERAL: A 67-year-old male appeared to be awake, alert, oriented. VITAL SIGNS: Afebrile with pulse of 100, respiratory rate 20 to 22, and blood pressure of 110/64. HEENT: Showed pale dry oral mucous membrane. Nonicteric sclerae. LUNGS: Few scattered crepitation. Decreased air entry at bases. HEART: Positive S1 and S2. ABDOMEN: Soft with mild generalized tenderness. No mass or organomegaly. No rebound tenderness or guarding. Colostomy tube is in place. EXTREMITIES: Without significant clubbing, cyanosis or edema. RECTAL: Patient refused. IMPRESSION: 1. Peptic ulcer disease, rule out gastric versus duodenal ulcer, patient had been on steroids for some time. 2. Lumbar spine reported fracture with persistent lower back pain syndrome. 3. Known history of chronic obstructive pulmonary disease and allergic rhinitis 4. Hyperglycemia, most likely steroid induced. 5. Hypochromic microcytic anemia, the possibility of gastrointestinal blood loss was raised. 6. Known history of colon cancer with status post partial colon resection. 7. Known history of deep venous thrombosis with possible pulmonary emboli. SUGGESTIONS: 1. Agree with your plan. 2. Patient is to be scheduled for upper endoscopy due to the persistent to midepigastric pain. 3. Abdominal ultrasound with attention to the biliary tree and pancreas. 4. Further recommendation to follow post endoscopy. Case discussed with the staff at length Kaylin Weinberg MD [facility] # [id number]
[2018-03-22] MEDS: Albuterol HFA 90 mcg/actuation (8 g) IH SCH ×4 (02:47→19:53)
[2018-03-22] MEDS: (Novolog) Insulin Aspart, Recombinant 100 u/ml 10 ml vial SC SCH ×4 (07:46→21:36)
[2018-03-22] MEDS: Budesonide 0.5 mg/2 ml Inhal Susp UD INH SCH ×2 (08:22→19:53)
[2018-03-22] MEDS: Fluticasone-Salmeterol 250-50mcg Diskus INH SCH ×2 (08:23→19:53)
[2018-03-22] MEDS: Belladonna-Phenobarbital PO SCH ×2 (10:28→18:16)
[2018-03-22] MEDS: Bismuth Subsalicylate 262 mg Chew Tab PO SCH ×2 (10:29→18:16)
[2018-03-22] MEDS: Multiple Vitamins Tab PO SCH (10:29)
[2018-03-22] MEDS: Pantoprazole 20 mg EC Tab PO SCH (10:31)
[2018-03-22] MEDS: Lidocaine 5% Patch TD SCH (10:33)
--- NOTE | 2018-03-22 12:26 | CP.PCM.PN ---
Subjective - Date & Time of Evaluation Date of Evaluation: 03/22/18 Time of Evaluation: 09:20 - Subjective Subjective: Patient seen and examined Denies shortness of breath Denies cough EGD cancelled Objective - Vital Signs/Intake and Output Vital Signs (last 24 hours): Temp Pulse Resp BP Pulse Ox 97.8 F 102 H 20 104/63 97 03/22/18 07:20 03/22/18 07:20 03/22/18 07:20 03/22/18 07:20 03/22/18 07:20 Intake and Output: 03/22/18 03/22/18 06:59 18:59 Intake Total 720 Output Total 1750 Balance -1030 - Medications Medications: Current Medications Albuterol (Ventolin Hfa 90 Mcg/Actuation (8 G)) 1 puff IH RQ6 [facility] Last Admin: 03/22/18 08:22 Dose: 1 puff Alprazolam (Xanax) 0.5 mg PO BID [facility] Last Admin: 03/22/18 10:31 Dose: 0.5 mg Apixaban (Eliquis) 5 mg PO BID [facility] Last Admin: 03/22/18 10:29 Dose: 5 mg Belladonna/Phenobarbital () 1 tab PO BID [facility] Last Admin: 03/22/18 10:28 Dose: 1 tab Bismuth Subsalicylate (Pepto Bismol) 262 mg PO BID [facility] Last Admin: 03/22/18 10:29 Dose: 262 mg Budesonide (Pulmicort Respules) 0.5 mg INH RQ12 [facility] Last Admin: 03/22/18 08:22 Dose: 0.5 mg Cyclobenzaprine HCl (Flexeril) 5 mg PO BID [facility] Last Admin: 03/22/18 10:30 Dose: 5 mg Diltiazem HCl (Cardizem) 60 mg PO Q8 [facility] Last Admin: 03/22/18 05:52 Dose: 60 mg Insulin Aspart (Novolog) 0 unit SC ACHS [facility] PRN Reason: Protocol Last Admin: 03/22/18 12:22 Dose: Not Given Lidocaine (Lidoderm) 2 ea TD DAILY [facility] Last Admin: 03/22/18 10:33 Dose: 2 ea Metformin HCl (Glucophage) 500 mg PO BIDCC [facility] Last Admin: 03/21/18 18:39 Dose: 500 mg Morphine Sulfate (Morphine) 2 mg IV Q4 PRN PRN Reason: Pain, moderate (4-7) Last Admin: 03/22/18 10:46 Dose: 2 mg Multivitamins (Hexavitamin) 1 tab PO DAILY [facility] Last Admin: 03/22/18 10:29 Dose: 1 tab Ondansetron HCl (Zofran Inj) 4 mg IVP Q6 PRN PRN Reason: nausea Last Admin: 03/18/18 09:05 Dose: 4 mg Pantoprazole Sodium (Protonix Ec Tab) 20 mg PO DAILY [facility] Last Admin: 03/22/18 10:31 Dose: 20 mg Prednisone (Prednisone Tab) 5 mg PO DAILY [facility] Last Admin: 03/22/18 10:36 Dose: 5 mg Pregabalin (Lyrica) 75 mg PO BID [facility] Last Admin: 03/22/18 10:31 Dose: 75 mg Roflumilast (Daliresp) 500 mcg PO DAILY [facility] Last Admin: 03/22/18 11:22 Dose: 500 mcg Fluticasone/Salmeterol (Advair Diskus 250/50) 1 puff INH RBID [facility] Last Admin: 03/22/18 08:23 Dose: Not Given Sucralfate (Carafate Tab) 1 gm PO QID [facility] Last Admin: 03/22/18 10:28 Dose: 1 gm - Labs Labs: 03/21/18 06:29 03/20/18 07:47 PT 14.5 SECONDS (9.7-12.2) H 03/16/18 17:16 INR 1.3 03/16/18 17:16 APTT 31 SECONDS (21-34) 03/16/18 17:16 - Head Exam Head Exam: ATRAUMATIC, NORMOCEPHALIC - ENT Exam ENT Exam: Mucous Membranes Moist - Respiratory Exam Respiratory Exam: Clear to Ausculation Bilateral - Cardiovascular Exam Cardiovascular Exam: REGULAR RHYTHM - GI/Abdominal Exam GI & Abdominal Exam: Soft, Normal Bowel Sounds Assessment and Plan (1) COPD (chronic obstructive pulmonary disease) Assessment & Plan: Continue nebulizer treatment and current medication BiPAP if needed Status: Acute
--- NOTE | 2018-03-22 19:37 | CARD ---
APPROVED REPORT Date of service: 03/16/2018 EKG Measurement Heart [id number] [id number] <Conclusion> Sinus tachycardia Otherwise normal ECG
--- NOTE | 2018-03-22 23:41 | CP.PCM.PN ---
Subjective - Date & Time of Evaluation Date of Evaluation: 03/22/18 Time of Evaluation: 19:00 - Subjective Subjective: Patient seen and examined, had a brace placed on his back and chest for fracture of lumbar vertibra. Denies shortness of breath, Denies cough, EGD cancelled. no nausea, vomitting Objective - Vital Signs/Intake and Output Vital Signs (last 24 hours): Temp Pulse Resp BP Pulse Ox 98.4 F 114 H 20 113/71 99 03/22/18 15:35 03/22/18 21:37 03/22/18 15:35 03/22/18 21:37 03/22/18 15:35 Intake and Output: 03/22/18 03/23/18 18:59 06:59 Intake Total 200 Output Total 625 Balance 200 -625 - Medications Medications: Current Medications Albuterol (Ventolin Hfa 90 Mcg/Actuation (8 G)) 1 puff IH RQ6 [facility] Last Admin: 03/22/18 19:53 Dose: 1 puff Alprazolam (Xanax) 0.5 mg PO BID [facility] Last Admin: 03/22/18 21:34 Dose: 0.5 mg Apixaban (Eliquis) 5 mg PO BID [facility] Last Admin: 03/22/18 18:16 Dose: 5 mg Belladonna/Phenobarbital () 1 tab PO BID [facility] Last Admin: 03/22/18 18:16 Dose: 1 tab Bismuth Subsalicylate (Pepto Bismol) 262 mg PO BID [facility] Last Admin: 03/22/18 18:16 Dose: 262 mg Budesonide (Pulmicort Respules) 0.5 mg INH RQ12 [facility] Last Admin: 03/22/18 19:53 Dose: 0.5 mg Cyclobenzaprine HCl (Flexeril) 5 mg PO BID [facility] Last Admin: 03/22/18 18:16 Dose: 5 mg Diltiazem HCl (Cardizem) 60 mg PO Q8 [facility] Last Admin: 03/22/18 21:34 Dose: 60 mg Insulin Aspart (Novolog) 0 unit SC ACHS [facility] PRN Reason: Protocol Last Admin: 03/22/18 21:36 Dose: Not Given Lidocaine (Lidoderm) 2 ea TD DAILY [facility] Last Admin: 03/22/18 10:33 Dose: 2 ea [facility] Last Admin: 03/22/18 18:16 Dose: 500 mg Morphine Sulfate (Morphine) 2 mg IV Q4 PRN PRN Reason: Pain, moderate (4-7) Last Admin: 03/22/18 18:22 Dose: 2 mg Multivitamins (Hexavitamin) 1 tab PO DAILY [facility] Last Admin: 03/22/18 10:29 Dose: 1 tab Ondansetron HCl (Zofran Inj) 4 mg IVP Q6 PRN PRN Reason: nausea Last Admin: 03/18/18 09:05 Dose: 4 mg Pantoprazole Sodium (Protonix Ec Tab) 20 mg PO DAILY [facility] Last Admin: 03/22/18 10:31 Dose: 20 mg Prednisone (Prednisone Tab) 5 mg PO DAILY [facility] Last Admin: 03/22/18 10:36 Dose: 5 mg Pregabalin (Lyrica) 75 mg PO BID [facility] Last Admin: 03/22/18 21:34 Dose: 75 mg Roflumilast (Daliresp) 500 mcg PO DAILY [facility] Last Admin: 03/22/18 11:22 Dose: 500 mcg Fluticasone/Salmeterol (Advair Diskus 250/50) 1 puff INH RBID [facility] Last Admin: 03/22/18 19:53 Dose: 1 puff Sucralfate (Carafate Tab) 1 gm PO QID [facility] Last Admin: 03/22/18 21:34 Dose: 1 gm - Labs Labs: 03/21/18 06:29 03/20/18 07:47 PT 14.5 SECONDS (9.7-12.2) H 03/16/18 17:16 INR 1.3 03/16/18 17:16 APTT 31 SECONDS (21-34) 03/16/18 17:16 - Constitutional Appears: No Acute Distress - Head Exam Head Exam: ATRAUMATIC, NORMAL INSPECTION, NORMOCEPHALIC - Eye Exam Eye Exam: EOMI, Normal appearance, PERRL Pupil Exam: NORMAL ACCOMODATION, PERRL - ENT Exam ENT Exam: Mucous Membranes Moist, Normal Exam - Respiratory Exam Respiratory Exam: Clear to Ausculation Bilateral, NORMAL BREATHING PATTERN - Cardiovascular Exam Cardiovascular Exam: REGULAR RHYTHM, +S1, +S2. absent: Murmur - GI/Abdominal Exam GI & Abdominal Exam: Soft, Normal Bowel Sounds. absent: Tenderness Assessment and Plan (1) Intractable back pain Status: Acute (2) Abdominal pain Status: Acute (3) Asthma Status: Acute (4) COPD (chronic obstructive pulmonary disease) Status: Acute (5) Allergic rhinitis Status: Chronic (6) Steroid-induced diabetes Status: Chronic
--- NOTE | 2018-03-23 00:27 | CP.PCM.PN ---
Subjective - Date & Time of Evaluation Date of Evaluation: 03/21/18 Time of Evaluation: 19:00 - Subjective Subjective: Patient seen and examined Denies shortness of breath Denies cough EGD cancelled Objective - Vital Signs/Intake and Output Vital Signs (last 24 hours): Temp Pulse Resp BP Pulse Ox 98.4 F 114 H 20 113/71 99 03/22/18 15:35 03/22/18 21:37 03/22/18 15:35 03/22/18 21:37 03/22/18 15:35 Intake and Output: 03/22/18 03/23/18 18:59 06:59 Intake Total 200 320 Output Total 1025 Balance 200 -705 - Medications Medications: Current Medications Albuterol (Ventolin Hfa 90 Mcg/Actuation (8 G)) 1 puff IH RQ6 [facility] Last Admin: 03/22/18 19:53 Dose: 1 puff Alprazolam (Xanax) 0.5 mg PO BID [facility] Last Admin: 03/22/18 21:34 Dose: 0.5 mg Apixaban (Eliquis) 5 mg PO BID [facility] [place] Last Admin: 03/22/18 18:16 Dose: 5 mg Belladonna/Phenobarbital () 1 tab PO BID [facility] [place] Last Admin: 03/22/18 18:16 Dose: 1 tab Bismuth Subsalicylate (Pepto Bismol) 262 mg PO BID [facility] [place] Last Admin: 03/22/18 18:16 Dose: 262 mg Budesonide (Pulmicort Respules) 0.5 mg INH RQ12 [facility] [place] Last Admin: 03/22/18 19:53 Dose: 0.5 mg Cyclobenzaprine HCl (Flexeril) 5 mg PO BID [facility] [place] Last Admin: 03/22/18 18:16 Dose: 5 mg Diltiazem HCl (Cardizem) 60 mg PO Q8 [facility] [place] Last Admin: 03/22/18 21:34 Dose: 60 mg Insulin Aspart (Novolog) 0 unit SC ACHS [facility] [place] PRN Reason: Protocol Last Admin: 03/22/18 21:36 Dose: Not Given Lidocaine (Lidoderm) 2 ea TD DAILY [facility] [place] Last Admin: 03/22/18 10:33 Dose: 2 ea Metformin HCl (Glucophage) 500 mg PO BIDCC [facility] [place] Last Admin: 03/22/18 18:16 Dose: 500 mg Morphine Sulfate (Morphine) 2 mg IV Q4 PRN PRN Reason: Pain, moderate (4-7) Last Admin: 03/23/18 00:15 Dose: 2 mg Multivitamins (Hexavitamin) 1 tab PO DAILY [facility] [place] Last Admin: 03/22/18 10:29 Dose: 1 tab Ondansetron HCl (Zofran Inj) 4 mg IVP Q6 PRN PRN Reason: nausea Last Admin: 03/18/18 09:05 Dose: 4 mg Pantoprazole Sodium (Protonix Ec Tab) 20 mg PO DAILY [facility] [place] Last Admin: 03/22/18 10:31 Dose: 20 mg Prednisone (Prednisone Tab) 5 mg PO DAILY [facility] [place] Last Admin: 03/22/18 10:36 Dose: 5 mg Pregabalin (Lyrica) 75 mg PO BID [facility] [place] Last Admin: 03/22/18 21:34 Dose: 75 mg Roflumilast (Daliresp) 500 mcg PO DAILY [facility] [place] Last Admin: 03/22/18 11:22 Dose: 500 mcg Fluticasone/Salmeterol (Advair Diskus 250/50) 1 puff INH RBID [facility] [place] Last Admin: 03/22/18 19:53 Dose: 1 puff Sucralfate (Carafate Tab) 1 gm PO QID [facility] Last Admin: 03/22/18 21:34 Dose: 1 gm - Labs Labs: 03/21/18 06:29 03/20/18 07:47 PT 14.5 SECONDS (9.7-12.2) H 03/16/18 17:16 INR 1.3 03/16/18 17:16 APTT 31 SECONDS (21-34) 03/16/18 17:16 Assessment and Plan (1) Intractable back pain Status: Acute (2) Abdominal pain Status: Acute (3) Asthma Status: Acute (4) COPD (chronic obstructive pulmonary disease) Status: Acute (5) Allergic rhinitis Status: Chronic (6) Steroid-induced diabetes Status: Chronic
[2018-03-23] MEDS: Albuterol HFA 90 mcg/actuation (8 g) IH SCH ×4 (01:09→19:24)
[2018-03-23] MEDS: Fluticasone-Salmeterol 250-50mcg Diskus INH SCH ×2 (07:49→19:24)
[2018-03-23] MEDS: Budesonide 0.5 mg/2 ml Inhal Susp UD INH SCH ×2 (07:50→19:24)
[2018-03-23] MEDS: (Novolog) Insulin Aspart, Recombinant 100 u/ml 10 ml vial SC SCH ×4 (08:18→21:53)
[2018-03-23] MEDS: Lidocaine 5% Patch TD SCH (10:19)
[2018-03-23] MEDS: Pantoprazole 20 mg EC Tab PO SCH (10:20)
[2018-03-23] MEDS: Bismuth Subsalicylate 262 mg Chew Tab PO SCH ×2 (10:20→17:51)
[2018-03-23] MEDS: Multiple Vitamins Tab PO SCH (10:20)
[2018-03-23] MEDS: Belladonna-Phenobarbital PO SCH ×2 (10:20→17:51)
--- NOTE | 2018-03-23 12:47 | PN ---
Copied To: Kaylin Weinberg MD Attending MD: Kaylin Weinberg MD DATE: 03/23/2018 LOCATION: 658, bed A. SUBJECTIVE: This is a 67-year-old male seen and examined in rounds with a complaint of lower back pain as well as mid epigastric pain and tenderness with intermittent period of chest pain, related to most likely friction of the lumbar spine, but no reported active bleeding and no reported nausea or vomiting. The entire chart is reviewed including, but not limited to, the most recent lab and radiology study results, current and previous medication list, current and previous medical events. Case discussed with the staff at length. It has to be mentioned that the patient had mid epigastric persistent pain before, for which upper endoscopy was to be performed yesterday; however, it was canceled due to the patient's spine fracture. Most recent lab result showed blood glucose level 204 with subsequent drop of hemoglobin to 9.7, hematocrit 29.2. Reported stool for C. difficile negative. PHYSICAL EXAMINATION: GENERAL: A 67-year-old male, awake, alert oriented, somewhat tolerating oral intake. VITAL SIGNS: Afebrile with pulse of 92, respiratory rate 20 to 22, blood pressure 110/74. HEENT: Showed pale, dry oral mucous membrane, nonicteric sclera. LUNGS: With scattered crepitation. Decreased air entry at bases. HEART: Positive S1 and S2. ABDOMEN: Soft. Bowel sounds are present. No mass or organomegaly. No rebound tenderness or guarding. EXTREMITIES: Without significant clubbing, cyanosis, or edema. NEUROLOGIC: No reported new neurological deficit, sensory or motor. IMPRESSION: 1. Reexacerbation of peptic ulcer disease. 2. Friction of the lumbosacral spine. 3. Reexacerbation of chronic obstructive pulmonary disease. 4. Anemia with malnutrition secondary to above most likely. 5. Known history of steroid-induced diabetes mellitus. 6. Reported history of allergic rhinitis. SUGGESTION: 1. Agree with your plan. 2. Add Carafate p.o. 3. Abdominal ultrasound. 4. Further recommendation to follow. Kaylin Weinberg MD [facility] # [id number]
--- NOTE | 2018-03-23 22:25 | CP.PCM.PN ---
Subjective - Date & Time of Evaluation Date of Evaluation: 03/23/18 Time of Evaluation: 20:20 - Subjective Subjective: patient seen and examined Denies shortness of breath Denies abdominal pain Afebrile On BiPAP at night Continue present treatment Objective - Vital Signs/Intake and Output Vital Signs (last 24 hours): Temp Pulse Resp BP Pulse Ox 98.5 F 114 H 20 103/70 99 03/23/18 15:00 03/23/18 15:00 03/23/18 15:00 03/23/18 15:00 03/23/18 15:00 Intake and Output: 03/23/18 03/24/18 18:59 06:59 Intake Total 600 Output Total 800 Balance -200 - Medications Medications: Current Medications Albuterol (Ventolin Hfa 90 Mcg/Actuation (8 G)) 1 puff IH RQ6 [facility] Last Admin: 03/23/18 19:24 Dose: 1 puff Alprazolam (Xanax) 0.5 mg PO BID [facility] Last Admin: 03/23/18 17:51 Dose: 0.5 mg Apixaban (Eliquis) 5 mg PO BID [facility] Last Admin: 03/23/18 17:51 Dose: 5 mg Belladonna/Phenobarbital () 1 tab PO BID [facility] Last Admin: 03/23/18 17:51 Dose: 1 tab Bismuth Subsalicylate (Pepto Bismol) 262 mg PO BID [facility] Last Admin: 03/23/18 17:51 Dose: 262 mg Budesonide (Pulmicort Respules) 0.5 mg INH RQ12 [facility] Last Admin: 03/23/18 19:24 Dose: 0.5 mg Cyclobenzaprine HCl (Flexeril) 5 mg PO BID [facility] Last Admin: 03/23/18 17:51 Dose: 5 mg Diltiazem HCl (Cardizem) 60 mg PO Q8 [facility] Last Admin: 03/23/18 21:13 Dose: 60 mg Insulin Aspart (Novolog) 0 unit SC ACHS [facility] PRN Reason: Protocol Last Admin: 03/23/18 21:53 Dose: Not Given Lidocaine (Lidoderm) 2 ea TD DAILY [facility] Last Admin: 03/23/18 10:19 Dose: 2 ea Metformin HCl (Glucophage) 500 mg PO BIDCC [facility] Last Admin: 03/23/18 17:51 Dose: 500 mg Morphine Sulfate (Morphine) 2 mg IV Q4 PRN PRN Reason: Pain, moderate (4-7) Last Admin: 03/23/18 18:44 Dose: 2 mg Multivitamins (Hexavitamin) 1 tab PO DAILY [facility] Last Admin: 03/23/18 10:20 Dose: 1 tab Ondansetron HCl (Zofran Inj) 4 mg IVP Q6 PRN PRN Reason: nausea Last Admin: 03/18/18 09:05 Dose: 4 mg Pantoprazole Sodium (Protonix Ec Tab) 20 mg PO DAILY [facility] Last Admin: 03/23/18 10:20 Dose: 20 mg Prednisone (Prednisone Tab) 5 mg PO DAILY [facility] Last Admin: 03/23/18 10:20 Dose: 5 mg Pregabalin (Lyrica) 75 mg PO BID [facility] Last Admin: 03/23/18 17:51 Dose: 75 mg Roflumilast (Daliresp) 500 mcg PO DAILY [facility] Last Admin: 03/23/18 10:20 Dose: 500 mcg Fluticasone/Salmeterol (Advair Diskus 250/50) 1 puff INH RBID [facility] Last Admin: 03/23/18 19:24 Dose: 1 puff Sucralfate (Carafate Tab) 1 gm PO QID [facility] Last Admin: 03/23/18 21:13 Dose: 1 gm - Labs Labs: 03/21/18 06:29 03/20/18 07:47 PT 14.5 SECONDS (9.7-12.2) H 03/16/18 17:16 INR 1.3 03/16/18 17:16 APTT 31 SECONDS (21-34) 03/16/18 17:16 Assessment and Plan (1) COPD (chronic obstructive pulmonary disease) Status: Acute
[2018-03-24] MEDS: Albuterol HFA 90 mcg/actuation (8 g) IH SCH ×4 (01:12→19:57)
[2018-03-24] MEDS: Fluticasone-Salmeterol 250-50mcg Diskus INH SCH ×2 (07:29→19:59)
[2018-03-24] MEDS: Budesonide 0.5 mg/2 ml Inhal Susp UD INH SCH ×2 (07:29→19:57)
[2018-03-24] MEDS: (Novolog) Insulin Aspart, Recombinant 100 u/ml 10 ml vial SC SCH ×4 (07:41→21:43)
[2018-03-24 07:59] LABS: BASO # 0.1 K/uL (0.0-0.2); BASO % 1.1 % (0.0-2.0); EOS # 0.3 K/uL (0.0-0.7); EOS % 3.4 % (0.0-4.0); HEMOGLOBIN 9.6 g/dL (12.0-18.0); LYMPH # 1.9 K/uL (1.0-4.3); LYMPH % 21.8 % (20.0-40.0); MEAN CELL VOLUME 68.4 fL (80.0-94.0); MEAN CORPUSCULAR HGB CONC 32.2 g/dL (33.0-37.0); MEAN PLATELET VOLUME 8.1 fL (7.2-11.7); MONO # 0.6 K/uL (0.0-0.8); MONO % 6.5 % (0.0-10.0); NEUT # 5.7 K/uL (1.8-7.0); NEUT % 67.2 % (50.0-75.0); RBC 4.37 Mil/uL (4.40-5.90); RED CELL DISTRIBUTION WIDTH 21.4 % (11.5-14.5); WHITE BLOOD COUNT 8.5 K/uL (4.8-10.8)
[2018-03-24 08:23] LABS: BLOOD UREA NITROGEN 6 mg/dL (9-20); CALCIUM 8.8 mg/dl (8.6-10.4); GFR AFRICAN-AMERICAN > 60; GFR NON-AFRICAN AMERICAN > 60
[2018-03-24] MEDS: Lidocaine 5% Patch TD SCH (09:41)
[2018-03-24] MEDS: Multiple Vitamins Tab PO SCH (09:42)
[2018-03-24] MEDS: Bismuth Subsalicylate 262 mg Chew Tab PO SCH ×2 (09:42→17:30)
[2018-03-24] MEDS: Pantoprazole 20 mg EC Tab PO SCH (09:42)
[2018-03-24] MEDS: Belladonna-Phenobarbital PO SCH ×2 (09:42→17:31)
[2018-03-24 10:57] LABS: INR 1.2; PROTHROMBIN TIME 13.3 SECONDS (9.7-12.2)
--- NOTE | 2018-03-24 13:28 | PN ---
Copied To: Kaylin Weinberg MD Attending MD: Kaylin Weinberg MD DATE: 03/24/2018 LOCATION: 658 bed A. SUBJECTIVE: This is a 67-year-old male seen and examined early in rounds with a complaint of mild lower abdominal pain, midepigastric pain with back pain, but no reported actual shortness of breath, palpitation or chest pain. No chills or fever. The entire chart is reviewed including but not limited to the most recent lab and radiology study results, current and the previous medication list, current and the previous medical events, and today's lab results showed subsequent drop of hemoglobin to 9.6, hematocrit 29.9 with low indices highly suggestive of hypochromic microcytic anemia with normal white blood cells. Rest of the lab results still pending. PHYSICAL EXAMINATION: GENERAL: A 67-year-old male, awake, alert, oriented. VITAL SIGNS: Afebrile, somewhat tolerating oral intake with postprandial abdominal, midepigastric pain on and off and discomfort, with pulse of 92, respiratory rate of 20-22, blood pressure of 124/70. HEENT: Showed pale, dry oral mucous membrane. Nonicteric sclera. LUNGS: Few scattered crepitation. Decreased air entry at bases. HEART: Positive S1 and S2. ABDOMEN: Soft. Bowel sounds are present. No mass or organomegaly. No rebound tenderness or guarding. RECTAL: The patient refused. EXTREMITIES: With mild lower extremity edematous changes. No clubbing or cyanosis. NEUROLOGICAL: No reported new neurological deficits, sensory or motor. The patient is still on BiPAP at nighttime. IMPRESSION: 1. Re-exacerbation of peptic ulcer disease. 2. Re-exacerbation of chronic obstructive pulmonary disease. 3. Hypochromic microcytic anemia, the possibility of gastrointestinal blood loss versus anemia secondary to chronic disease was raised. 4. Fracture of the lumbosacral spine by recent radiology study results. 5. Known history of steroid-induced diabetes mellitus. SUGGESTIONS: 1. Continue current management. 2. Follow up in cancer markers including CEA and CA 19-9. 3. Endoscopic evaluation of the GI tract only when the patient is more stable clinically. Case is to be discussed with the admitting medical staff. Kaylin Weinberg MD [facility] # [id number]
[2018-03-24] MEDS ORDERED: Potassium Chloride 20 mEq ER Tab PO ONE (16:00)
--- NOTE | 2018-03-24 20:21 | PN ---
Copied To: Mukesh Correia MD Attending MD: Mukesh Correia MD DATE: 03/24/2018 SUBJECTIVE: The patient denies chest pain. He is mildly short of breath. OBJECTIVE: VITAL SIGNS: Blood pressure 102/64, heart rate 97, temperature 98.5, respirations 20. HEENT: Pale conjunctivae. CHEST: Bilateral rhonchi. HEART: S1, S2 regular. ABDOMEN: Soft. EXTREMITIES: No edema. LABORATORY DATA: Today's hemoglobin and hematocrit 9.6 and 29.5. White count and platelet count are within normal limits. SMA-7, sodium 141, potassium 3.5, chloride 100, CO2 of 30, glucose 110, BUN 6, creatinine 0.5. Lumbar spine MRI revealed an acute/subacute fracture of L1 segment. ASSESSMENT: 1. Recent left femoral vein deep venous thrombosis with presumptive pulmonary embolism. 2. Status post fall and acute fracture of L1 vertebra. 3. Chronic obstructive lung disease. 4. Hypertension. 5. Uncontrolled diabetes mellitus. 6. Hypokalemia. 7. History of rectal carcinoma, status post resection and ileostomy. RECOMMENDATIONS: Continue Cardizem at 60 mg every 8 hours, Eliquis 5 mg twice a day, Glucophage 500 mg twice a day, prednisone 5 mg once a day, Xanax 0.5 mg twice a day. The patient did receive K-Dur 20 mEq orally as a single replacement dose today. Mukesh Correia MD
--- NOTE | 2018-03-24 21:30 | CP.PCM.PN ---
Subjective - Date & Time of Evaluation Date of Evaluation: 03/23/18 Time of Evaluation: 18:40 - Subjective Subjective: Pt seen and examined, is feeling better, decreased back pain Objective - Vital Signs/Intake and Output Vital Signs (last 24 hours): Temp Pulse Resp BP Pulse Ox 97.4 F L 104 H 20 97/67 L 100 03/24/18 15:00 03/24/18 15:00 03/24/18 15:00 03/24/18 15:00 03/24/18 15:00 Intake and Output: 03/24/18 03/25/18 18:59 06:59 Intake Total 600 Output Total 900 Balance -300 - Medications Medications: Current Medications Albuterol (Ventolin Hfa 90 Mcg/Actuation (8 G)) 1 puff IH RQ6 [facility] Last Admin: 03/24/18 19:57 Dose: 1 puff Alprazolam (Xanax) 0.5 mg PO BID [facility] Last Admin: 03/24/18 17:31 Dose: 0.5 mg Apixaban (Eliquis) 5 mg PO BID [facility] Last Admin: 03/24/18 17:31 Dose: 5 mg Belladonna/Phenobarbital () 1 tab PO BID [facility] Last Admin: 03/24/18 17:31 Dose: 1 tab Bismuth Subsalicylate (Pepto Bismol) 262 mg PO BID [facility] Last Admin: 03/24/18 17:30 Dose: 262 mg Budesonide (Pulmicort Respules) 0.5 mg INH RQ12 [facility] Last Admin: 03/24/18 19:57 Dose: 0.5 mg Diltiazem HCl (Cardizem) 60 mg PO Q8 [facility] Last Admin: 03/24/18 13:25 Dose: 60 mg Insulin Aspart (Novolog) 0 unit SC ACHS [facility] PRN Reason: Protocol Last Admin: 03/24/18 17:30 Dose: 2 units Lidocaine (Lidoderm) 2 ea TD DAILY [facility] Last Admin: 03/24/18 09:41 Dose: 2 ea Metformin HCl (Glucophage) 500 mg PO BIDCC [facility] Last Admin: 03/24/18 17:31 Dose: 500 mg Morphine Sulfate (Morphine) 2 mg IV Q4 PRN PRN Reason: Pain, moderate (4-7) Last Admin: 08/12/18 18:21 Dose: 2 mg Multivitamins (Hexavitamin) 1 tab PO DAILY [facility] Last Admin: 03/24/18 09:42 Dose: 1 tab Ondansetron HCl (Zofran Inj) 4 mg IVP Q6 PRN PRN Reason: nausea Last Admin: 03/18/18 09:05 Dose: 4 mg Pantoprazole Sodium (Protonix Ec Tab) 20 mg PO DAILY [facility] Last Admin: 03/24/18 09:42 Dose: 20 mg Prednisone (Prednisone Tab) 5 mg PO DAILY [facility] Last Admin: 03/24/18 09:42 Dose: 5 mg Pregabalin (Lyrica) 75 mg PO BID [facility] Last Admin: 03/24/18 17:31 Dose: 75 mg Roflumilast (Daliresp) 500 mcg PO DAILY [facility] Last Admin: 03/24/18 09:42 Dose: 500 mcg Fluticasone/Salmeterol (Advair Diskus 250/50) 1 puff INH RBID [facility] Last Admin: 03/24/18 19:59 Dose: 1 puff - Labs Labs: 03/24/18 07:43 03/24/18 07:43 PT 13.3 SECONDS (9.7-12.2) H 03/24/18 10:40 INR 1.2 03/24/18 10:40 APTT 31 SECONDS (21-34) 03/24/18 10:40 - Constitutional Appears: No Acute Distress - Eye Exam Eye Exam: EOMI, Normal appearance, PERRL Pupil Exam: NORMAL ACCOMODATION, PERRL - ENT Exam ENT Exam: Mucous Membranes Moist, Normal Exam - Respiratory Exam Respiratory Exam: Decreased Breath Sounds, Rales, Rhonchi - Cardiovascular Exam Cardiovascular Exam: REGULAR RHYTHM, +S1, +S2. absent: Murmur - GI/Abdominal Exam GI & Abdominal Exam: Soft, Normal Bowel Sounds. absent: Tenderness - Rectal Exam Rectal Exam: Deferred Assessment and Plan (1) Intractable back pain Status: Acute (2) Abdominal pain Status: Acute (3) Asthma Status: Acute (4) COPD (chronic obstructive pulmonary disease) Status: Acute (5) Allergic rhinitis Status: Chronic (6) Steroid-induced diabetes Status: Chronic
--- NOTE | 2018-03-24 21:32 | CP.PCM.PN ---
Subjective - Date & Time of Evaluation Date of Evaluation: 03/24/18 Time of Evaluation: 17:30 - Subjective Subjective: patient seen and examined Denies shortness of breath Denies abdominal pain Afebrile On BiPAP at night Continue present treatment Objective - Vital Signs/Intake and Output Vital Signs (last 24 hours): Temp Pulse Resp BP Pulse Ox 97.4 F L 104 H 20 97/67 L 100 03/24/18 15:00 03/24/18 15:00 03/24/18 15:00 03/24/18 15:00 03/24/18 15:00 Intake and Output: 03/24/18 03/25/18 18:59 06:59 Intake Total 600 Output Total 900 Balance -300 - Medications Medications: Current Medications Albuterol (Ventolin Hfa 90 Mcg/Actuation (8 G)) 1 puff IH RQ6 [facility] Last Admin: 03/24/18 19:57 Dose: 1 puff Alprazolam (Xanax) 0.5 mg PO BID [facility] Last Admin: 03/24/18 17:31 Dose: 0.5 mg Apixaban (Eliquis) 5 mg PO BID [facility] Last Admin: 03/24/18 17:31 Dose: 5 mg Belladonna/Phenobarbital () 1 tab PO BID [facility] Last Admin: 03/24/18 17:31 Dose: 1 tab Bismuth Subsalicylate (Pepto Bismol) 262 mg PO BID [facility] Last Admin: 03/24/18 17:30 Dose: 262 mg Budesonide (Pulmicort Respules) 0.5 mg INH RQ12 [facility] Last Admin: 03/24/18 19:57 Dose: 0.5 mg Diltiazem HCl (Cardizem) 60 mg PO Q8 [facility] Last Admin: 03/24/18 13:25 Dose: 60 mg Insulin Aspart (Novolog) 0 unit SC ACHS [facility] PRN Reason: Protocol Last Admin: 03/24/18 17:30 Dose: 2 units Lidocaine (Lidoderm) 2 ea TD DAILY [facility] Last Admin: 03/24/18 09:41 Dose: 2 ea Metformin HCl (Glucophage) 500 mg PO BIDCC [facility] Last Admin: 03/24/18 17:31 Dose: 500 mg Morphine Sulfate (Morphine) 2 mg IV Q4 PRN PRN Reason: Pain, moderate (4-7) Last Admin: 03/24/18 18:21 Dose: 2 mg Multivitamins (Hexavitamin) 1 tab PO DAILY [facility] Last Admin: 03/24/18 09:42 Dose: 1 tab Ondansetron HCl (Zofran Inj) 4 mg IVP Q6 PRN PRN Reason: nausea Last Admin: 03/18/18 09:05 Dose: 4 mg Pantoprazole Sodium (Protonix Ec Tab) 20 mg PO DAILY [facility] Last Admin: 03/24/18 09:42 Dose: 20 mg Prednisone (Prednisone Tab) 5 mg PO DAILY [facility] Last Admin: 03/24/18 09:42 Dose: 5 mg Pregabalin (Lyrica) 75 mg PO BID [facility] Last Admin: 03/24/18 17:31 Dose: 75 mg Roflumilast (Daliresp) 500 mcg PO DAILY [facility] Last Admin: 03/24/18 09:42 Dose: 500 mcg Fluticasone/Salmeterol (Advair Diskus 250/50) 1 puff INH RBID [facility] Last Admin: 03/24/18 19:59 Dose: 1 puff - Labs Labs: 03/24/18 07:43 03/24/18 07:43 PT 13.3 SECONDS (9.7-12.2) H 03/24/18 10:40 INR 1.2 03/24/18 10:40 APTT 31 SECONDS (21-34) 03/24/18 10:40 - Constitutional Appears: No Acute Distress - Head Exam Head Exam: ATRAUMATIC, NORMAL INSPECTION, NORMOCEPHALIC - Eye Exam Eye Exam: EOMI, Normal appearance, PERRL Pupil Exam: NORMAL ACCOMODATION, PERRL - ENT Exam ENT Exam: Mucous Membranes Moist, Normal Exam Assessment and Plan (1) Intractable back pain Status: Acute (2) Abdominal pain Status: Acute (3) Asthma Status: Acute (4) COPD (chronic obstructive pulmonary disease) Status: Acute (5) Allergic rhinitis Status: Chronic (6) Steroid-induced diabetes Status: Chronic
[2018-03-25] MEDS: Albuterol HFA 90 mcg/actuation (8 g) IH SCH ×4 (01:10→19:45)
[2018-03-25] MEDS: Budesonide 0.5 mg/2 ml Inhal Susp UD INH SCH ×2 (07:47→19:45)
[2018-03-25] MEDS: Fluticasone-Salmeterol 250-50mcg Diskus INH SCH ×2 (07:47→19:44)
[2018-03-25] MEDS: (Novolog) Insulin Aspart, Recombinant 100 u/ml 10 ml vial SC SCH ×4 (08:45→21:20)
[2018-03-25] MEDS: Belladonna-Phenobarbital PO SCH ×2 (09:12→17:38)
[2018-03-25] MEDS: Pantoprazole 20 mg EC Tab PO SCH (09:12)
[2018-03-25] MEDS: Multiple Vitamins Tab PO SCH (09:12)
[2018-03-25] MEDS: Bismuth Subsalicylate 262 mg Chew Tab PO SCH ×2 (10:36→17:38)
[2018-03-25] MEDS: Lidocaine 5% Patch TD SCH (11:02)
[2018-03-25] MEDS: guaiFENesin 100 mg/5 ml Syrup UD PO SCH ×3 (14:49→21:20)
--- NOTE | 2018-03-25 15:10 | PN ---
Copied To: Kaylin Weinberg MD Attending MD: Kaylin Weinberg MD DATE: 03/25/2018 LOCATION: 658, bed B. SUBJECTIVE: This is a 67-year-old male seen and examined in rounds without significant clinical changes or reported active bleeding with intermittent period of mild shortness of breath with epigastric and midabdominal pain as well as back pain on and off. Seen by the chain sales consultant, Dr. Correia. The entire chart is reviewed including but not limited to the most recent lab and radiology study results, current and the previous medication list, current and the previous medical events, and today's lab is still pending, but the patient is still having low hemoglobin and hematocrit with low indices highly suggestive of hypochromic microcytic anemia with hypokalemia, but CEA and CA 19-9. PHYSICAL EXAMINATION: GENERAL: A 67-year-old male. VITAL SIGNS: Afebrile with pulse of 90, respiratory rate 18 to 20, blood pressure of 110/72. HEENT: Showed pale, dry oral mucous membrane. Nonicteric sclerae. LUNGS: Few scattered crepitation. Decreased air entry at bases. HEART: Positive S1 and S2. ABDOMEN: Soft. Bowel sounds are present. No mass or organomegaly. No rebound tenderness or guarding. EXTREMITIES: Without significant clubbing, cyanosis, or edema. NEUROLOGIC: No reported new focal deficits or sensory or motor. IMPRESSION: 1. Re-exacerbation of peptic ulcer disease. 2. Hypochromic microcytic anemia secondary to chronic disease. 3. Spine fracture. 4. Known history of chronic obstructive pulmonary disease. 5. 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 SUGGESTIONS: 1. Continue current management. 2. Re-exacerbation of anemia. Upper endoscopy to be considered only when the patient is more stable clinically. 3. Add Carafate p.o. 4. Further recommendation to follow. Kaylin Weinberg MD
--- NOTE | 2018-03-25 16:57 | PN ---
Copied To: Mukesh Correia MD Attending MD: Mukesh Correia MD DATE: 03/25/2018 SUBJECTIVE: The patient is mildly short of breath. He complains of low back pain. No chest pain. He is also complaining of productive cough. PHYSICAL EXAMINATION: VITAL SIGNS: Blood pressure 115/75, heart rate 93, temperature 98.1, and respirations 18. HEENT: Pale conjunctivae. CHEST: Bilateral rhonchi. HEART: S1 and S2 regular. ABDOMEN: Soft. EXTREMITIES: No edema and no calf tenderness. ASSESSMENT: 1. Recent deep vein thrombosis and pulmonary embolus. 2. Physiologic sinus tachycardia. 3. Hypertension. 4. Uncontrolled diabetes mellitus. 5. Anemia. 6. History of rectal carcinoma, status post resection and ileostomy. 7. Lumbar spine fracture following a fall. RECOMMENDATIONS: Continue Cardizem 60 mg every 8 hours, Eliquis 5 mg twice a day, Glucophage 500 mg twice a day, prednisone 5 mg once a day, albuterol inhaler, Xanax 4 mg intravenously every 6 hours, Robitussin 100 mg p.o. four times a day. Mukesh Correia MD
--- NOTE | 2018-03-25 20:52 | CP.PCM.PN ---
Objective - Vital Signs/Intake and Output Vital Signs (last 24 hours): Temp Pulse Resp BP Pulse Ox 97.8 F 111 H 20 105/63 99 03/25/18 15:18 03/25/18 19:47 03/25/18 15:18 03/25/18 15:18 03/25/18 15:18 Intake and Output: 03/25/18 03/26/18 18:59 06:59 Intake Total 200 Output Total 350 Balance -150 - Medications Medications: Current Medications Albuterol (Ventolin Hfa 90 Mcg/Actuation (8 G)) 1 puff IH RQ6 [facility] Last Admin: 03/25/18 19:45 Dose: 1 puff Alprazolam (Xanax) 0.5 mg PO BID [facility] Last Admin: 03/25/18 09:12 Dose: 0.5 mg Apixaban (Eliquis) 5 mg PO BID [facility] Last Admin: 03/25/18 17:38 Dose: 5 mg Belladonna/Phenobarbital () 1 tab PO BID [facility] Last Admin: 03/25/18 17:38 Dose: 1 tab Bismuth Subsalicylate (Pepto Bismol) 262 mg PO BID [facility] Last Admin: 03/25/18 17:38 Dose: 262 mg Budesonide (Pulmicort Respules) 0.5 mg INH RQ12 [facility] Last Admin: 03/25/18 19:45 Dose: 0.5 mg Diltiazem HCl (Cardizem) 60 mg PO Q8 [facility] Last Admin: 03/25/18 14:49 Dose: 60 mg Guaifenesin (Robitussin) 100 mg PO QID [facility] Last Admin: 03/25/18 17:38 Dose: 100 mg Insulin Aspart (Novolog) 0 unit SC ACHS [facility] PRN Reason: Protocol Last Admin: 03/25/18 17:04 Dose: Not Given Lidocaine (Lidoderm) 2 ea TD DAILY [facility] Last Admin: 03/25/18 11:02 Dose: 2 ea Metformin HCl (Glucophage) 500 mg PO BIDCC [facility] Last Admin: 03/25/18 17:38 Dose: 500 mg Morphine Sulfate (Morphine) 2 mg IV Q4 PRN PRN Reason: Pain, moderate (4-7) Last Admin: 03/25/18 17:38 Dose: 2 mg Multivitamins (Hexavitamin) 1 tab PO DAILY [facility] Last Admin: 03/25/18 09:12 Dose: 1 tab Ondansetron HCl (Zofran Inj) 4 mg IVP Q6 PRN PRN Reason: nausea Last Admin: 03/18/18 09:05 Dose: 4 mg Pantoprazole Sodium (Protonix Ec Tab) 20 mg PO DAILY [facility] Last Admin: 03/25/18 09:12 Dose: 20 mg Prednisone (Prednisone Tab) 5 mg PO DAILY [facility] Last Admin: 03/25/18 09:15 Dose: 5 mg Pregabalin (Lyrica) 75 mg PO BID [facility] Last Admin: 03/25/18 09:12 Dose: 75 mg Roflumilast (Daliresp) 500 mcg PO DAILY [facility] Last Admin: 03/25/18 10:14 Dose: 500 mcg Fluticasone/Salmeterol (Advair Diskus 250/50) 1 puff INH RBID [facility] Last Admin: 03/25/18 19:44 Dose: 1 puff - Labs Labs: 03/24/18 07:43 03/24/18 07:43 PT 13.3 SECONDS (9.7-12.2) H 03/24/18 10:40 INR 1.2 03/24/18 10:40 APTT 31 SECONDS (21-34) 03/24/18 10:40 Assessment and Plan (1) Intractable back pain Status: Acute (2) Abdominal pain Status: Acute (3) Asthma Status: Acute (4) COPD (chronic obstructive pulmonary disease) Status: Acute (5) Allergic rhinitis Status: Chronic (6) Steroid-induced diabetes Status: Chronic
[2018-03-26] MEDS: Albuterol HFA 90 mcg/actuation (8 g) IH SCH ×4 (02:47→19:57)
[2018-03-26] MEDS: Fluticasone-Salmeterol 250-50mcg Diskus INH SCH ×2 (08:26→19:58)
[2018-03-26] MEDS: Budesonide 0.5 mg/2 ml Inhal Susp UD INH SCH ×2 (08:26→19:58)
[2018-03-26] MEDS: (Novolog) Insulin Aspart, Recombinant 100 u/ml 10 ml vial SC SCH ×4 (08:50→21:24)
--- NOTE | 2018-03-26 09:10 | PN ---
Copied To: Hal Garcia MD Attending MD: Hal Garcia MD DATE: 03/25/2018 SUBJECTIVE: Patient has on and off back pain, but since his brace has been placed on his back, he had less pain. He gets shortness of breath and anxiety attack. He is afebrile. PHYSICAL EXAMINATION: VITAL SIGNS: Blood pressure 105/63, pulse 127, respiratory rate 20, temperature 97.8. LUNGS: Decreased air entry. CARDIOVASCULAR: S1 and S2 regular. ABDOMEN: Soft. ASSESSMENT: 1. Fracture most likely due to osteoporosis. 2. Steroid induced diabetes. 3. Chronic obstructive pulmonary disease, chronic persistent. 4. . PLAN: Continue medical management. Monitor patient. Hal Garcia MD
[2018-03-26] MEDS: Pantoprazole 20 mg EC Tab PO SCH (09:27)
[2018-03-26] MEDS: Belladonna-Phenobarbital PO SCH ×2 (09:27→18:00)
[2018-03-26] MEDS: Multiple Vitamins Tab PO SCH (09:27)
[2018-03-26] MEDS: Bismuth Subsalicylate 262 mg Chew Tab PO SCH ×2 (09:28→21:23)
[2018-03-26] MEDS: Lidocaine 5% Patch TD SCH (09:28)
[2018-03-26] MEDS: guaiFENesin 100 mg/5 ml Syrup UD PO SCH ×4 (09:28→21:34)
--- NOTE | 2018-03-26 20:53 | PN ---
DATE: 03/26/2018 SUBJECTIVE: The patient is still experiencing productive cough. He has poor appetite. He denies any chest pain. PHYSICAL EXAMINATION: VITAL SIGNS: Blood pressure 107/73, heart rate 98, temperature 97.8, and respirations 18. HEENT: Pale conjunctivae. CHEST: Bilateral rhonchi. HEART: S1 and S2 regular. ABDOMEN: Soft. EXTREMITIES: No edema. LABORATORY DATA: Today's blood sugar is 106 and 205 respectively. ASSESSMENT: 1. Status post fall and fracture of first lumbar vertebra. 2. Left femoral vein deep venous thrombosis with pulmonary embolism. 3. Sinus tachycardia, which is physiologic. 4. Chronic obstructive lung disease. 5. Uncontrolled diabetes mellitus. 6. Anemia. RECOMMENDATIONS: Continue Cardizem 60 mg every 8 hours, Eliquis 5 mg twice a day, Glucophage at 500 mg twice a day, prednisone at 5 mg once a day, Xanax at 0.5 mg p.o. twice a day, and Robitussin at 100 mg p.o. four times a day. The plan is to transfer the patient to Subacute Rehab. The case was discussed with the patient's as well as with the DEFENCE INTELLIGENCE ANALYST and Social Service. Sending the patient home may be unsafe because the patient is not usually attended by anyone at home for most of the day in view of the patient's fall and lumber spine fracture. Mukesh Correia MD
--- NOTE | 2018-03-26 23:45 | CP.PCM.PN ---
Objective - Vital Signs/Intake and Output Vital Signs (last 24 hours): Temp Pulse Resp BP Pulse Ox 98 F 108 H 20 120/76 100 03/26/18 15:35 03/26/18 21:37 03/26/18 15:35 03/26/18 21:37 03/26/18 15:35 Intake and Output: 03/26/18 03/27/18 18:59 06:59 Intake Total 250 Output Total 250 575 Balance 0 -575 - Medications Medications: Current Medications Albuterol (Ventolin Hfa 90 Mcg/Actuation (8 G)) 1 puff IH RQ6 [facility] Last Admin: 03/26/18 19:57 Dose: 1 puff Alprazolam (Xanax) 0.5 mg PO BID [facility] Last Admin: 03/26/18 21:23 Dose: 0.5 mg Apixaban (Eliquis) 5 mg PO BID [facility] Last Admin: 03/26/18 18:00 Dose: 5 mg Belladonna/Phenobarbital () 1 tab PO BID [facility] Last Admin: 03/26/18 18:00 Dose: 1 tab Bismuth Subsalicylate (Pepto Bismol) 262 mg PO BID [facility] Last Admin: 03/26/18 21:23 Dose: 262 mg Budesonide (Pulmicort Respules) 0.5 mg INH RQ12 [facility] Last Admin: 03/26/18 19:58 Dose: 0.5 mg Diltiazem HCl (Cardizem) 60 mg PO Q8 [facility] Last Admin: 03/26/18 21:23 Dose: 60 mg Guaifenesin (Robitussin) 100 mg PO QID [facility] Last Admin: 03/26/18 21:34 Dose: 100 mg Insulin Aspart (Novolog) 0 unit SC ACHS [facility] PRN Reason: Protocol Last Admin: 03/26/18 21:24 Dose: Not Given Lidocaine (Lidoderm) 2 ea TD DAILY [facility] Last Admin: 03/26/18 09:28 Dose: 2 ea Metformin HCl (Glucophage) 500 mg PO BIDCC [facility] Last Admin: 03/26/18 18:00 Dose: 500 mg Morphine Sulfate (Morphine) 2 mg IV Q4 PRN PRN Reason: Pain, moderate (4-7) Last Admin: 03/26/18 20:33 Dose: 2 mg Multivitamins (Hexavitamin) 1 tab PO DAILY [facility] Last Admin: 03/26/18 09:27 Dose: 1 tab Ondansetron HCl (Zofran Inj) 4 mg IVP Q6 PRN PRN Reason: nausea Last Admin: 03/18/18 09:05 Dose: 4 mg Pantoprazole Sodium (Protonix Ec Tab) 20 mg PO DAILY [facility] Last Admin: 03/26/18 09:27 Dose: 20 mg Prednisone (Prednisone Tab) 5 mg PO DAILY [facility] Last Admin: 03/26/18 09:27 Dose: 5 mg Pregabalin (Lyrica) 75 mg PO BID [facility] Last Admin: 03/26/18 21:23 Dose: 75 mg Roflumilast (Daliresp) 500 mcg PO DAILY [facility] Last Admin: 03/26/18 09:27 Dose: 500 mcg Fluticasone/Salmeterol (Advair Diskus 250/50) 1 puff INH RBID [facility] Last Admin: 03/26/18 19:58 Dose: 1 puff - Labs Labs: 03/24/18 07:43 03/24/18 07:43 PT 13.3 SECONDS (9.7-12.2) H 03/24/18 10:40 INR 1.2 03/24/18 10:40 APTT 31 SECONDS (21-34) 03/24/18 10:40 Assessment and Plan (1) Intractable back pain Status: Acute (2) Abdominal pain Status: Acute (3) Asthma Status: Acute (4) COPD (chronic obstructive pulmonary disease) Status: Acute (5) Allergic rhinitis Status: Chronic (6) Steroid-induced diabetes Status: Chronic
[2018-03-27] MEDS: Albuterol HFA 90 mcg/actuation (8 g) IH SCH ×4 (01:01→20:08)
[2018-03-27] MEDS: Budesonide 0.5 mg/2 ml Inhal Susp UD INH SCH ×2 (07:35→20:07)
[2018-03-27] MEDS: Fluticasone-Salmeterol 250-50mcg Diskus INH SCH ×2 (07:35→20:08)
[2018-03-27] MEDS: (Novolog) Insulin Aspart, Recombinant 100 u/ml 10 ml vial SC SCH ×4 (08:25→21:08)
[2018-03-27] MEDS: Belladonna-Phenobarbital PO SCH ×2 (09:17→18:13)
[2018-03-27] MEDS: Pantoprazole 20 mg EC Tab PO SCH (09:17)
[2018-03-27] MEDS: Multiple Vitamins Tab PO SCH (09:17)
[2018-03-27] MEDS: guaiFENesin 100 mg/5 ml Syrup UD PO SCH ×4 (09:17→21:07)
[2018-03-27] MEDS: Lidocaine 5% Patch TD SCH (09:17)
--- NOTE | 2018-03-27 09:18 | PN ---
Copied To: Hal Garcia MD Attending MD: Hal Garcia MD DATE: 03/26/2018 SUBJECTIVE: Patient is for subacute rehab. He has back pain. He is afebrile. No shortness of breath, no chest pain. PHYSICAL EXAMINATION: VITAL SIGNS: Blood pressure 120/76, pulse 102, respiratory rate 26, temperature 98. LUNGS: Decreased air entry. CVS: S1, S2. Regular. ABDOMEN: Soft. ASSESSMENT: 1. Spinal fracture. Patient has a brace. 2. Chronic obstructive pulmonary disease. 3. . 4. Allergic rhinitis. PLAN: Medical management. Monitor patient. Hal Garcia MD
[2018-03-27] MEDS: Bismuth Subsalicylate 262 mg Chew Tab PO SCH ×2 (09:20→18:13)
--- NOTE | 2018-03-27 15:22 | CP.PCM.PN ---
Subjective - Date & Time of Evaluation Date of Evaluation: 03/27/18 Time of Evaluation: 11:45 - Subjective Subjective: patient seen and examined denies shortness of breath Afebrile No chest pain Pending transfer to subacute Continue present treatment for now Stable from pulmonary standpoint Objective - Vital Signs/Intake and Output Vital Signs (last 24 hours): Temp Pulse Resp BP Pulse Ox 97.8 F 102 H 18 109/67 100 03/27/18 07:00 03/27/18 07:35 03/27/18 07:00 03/27/18 07:00 03/27/18 07:00 Intake and Output: 03/27/18 03/27/18 06:59 18:59 Intake Total 300 300 Output Total 775 Balance -475 300 - Medications Medications: Current Medications Albuterol (Ventolin Hfa 90 Mcg/Actuation (8 G)) 1 puff IH RQ6 [facility] Last Admin: 03/27/18 13:19 Dose: 1 puff Alprazolam (Xanax) 0.5 mg PO BID [facility] Last Admin: 03/27/18 09:17 Dose: 0.5 mg Apixaban (Eliquis) 5 mg PO BID [facility] Last Admin: 03/27/18 09:17 Dose: 5 mg Belladonna/Phenobarbital () 1 tab PO BID [facility] Last Admin: 03/27/18 09:17 Dose: 1 tab Bismuth Subsalicylate (Pepto Bismol) 262 mg PO BID [facility] Last Admin: 03/27/18 09:20 Dose: 262 mg Budesonide (Pulmicort Respules) 0.5 mg INH RQ12 [facility] Last Admin: 03/27/18 07:35 Dose: 0.5 mg Diltiazem HCl (Cardizem) 60 mg PO Q8 [facility] Last Admin: 03/27/18 13:21 Dose: 60 mg Guaifenesin (Robitussin) 100 mg PO QID [facility] Last Admin: 03/27/18 13:38 Dose: 100 mg Insulin Aspart (Novolog) 0 unit SC ACHS [facility] PRN Reason: Protocol Last Admin: 03/27/18 12:10 Dose: Not Given Lidocaine (Lidoderm) 2 ea TD DAILY [facility] Last Admin: 03/27/18 09:17 Dose: 2 ea Metformin HCl (Glucophage) 500 mg PO BIDCC [facility] Last Admin: 03/27/18 09:17 Dose: 500 mg Morphine Sulfate (Morphine) 2 mg IV Q4 PRN PRN Reason: Pain, moderate (4-7) Last Admin: 03/27/18 14:44 Dose: 2 mg Multivitamins (Hexavitamin) 1 tab PO DAILY [facility] Last Admin: 03/27/18 09:17 Dose: 1 tab Ondansetron HCl (Zofran Inj) 4 mg IVP Q6 PRN PRN Reason: nausea Last Admin: 03/18/18 09:05 Dose: 4 mg Pantoprazole Sodium (Protonix Ec Tab) 20 mg PO DAILY [facility] Last Admin: 03/27/18 09:17 Dose: 20 mg Prednisone (Prednisone Tab) 5 mg PO DAILY [facility] Last Admin: 03/27/18 09:17 Dose: 5 mg Pregabalin (Lyrica) 75 mg PO BID [facility] Last Admin: 03/27/18 09:17 Dose: 75 mg Roflumilast (Daliresp) 500 mcg PO DAILY [facility] Last Admin: 03/27/18 09:17 Dose: 500 mcg Fluticasone/Salmeterol (Advair Diskus 250/50) 1 puff INH RBID [facility] Last Admin: 03/27/18 07:35 Dose: 1 puff - Labs Labs: 03/24/18 07:43 03/24/18 07:43 PT 13.3 SECONDS (9.7-12.2) H 03/24/18 10:40 INR 1.2 03/24/18 10:40 APTT 31 SECONDS (21-34) 03/24/18 10:40 Assessment and Plan (1) COPD (chronic obstructive pulmonary disease) Status: Acute
[2018-03-27 16:07] VITALS: RESP 20
--- NOTE | 2018-03-27 16:26 | PN ---
Copied To: Kaylin Weinberg MD Attending MD: Kaylin Weinberg MD DATE: 03/27/2018 LOCATION: 658, bed A. SUBJECTIVE: This is a 67-year-old male seen and examined in rounds today without significant clinical changes or reported active bleeding, but with a complaint of spinal and back pain with mild generalized weakness and malaise. No reported nausea or vomiting, chest pain, shortness of breath or palpitations this morning. It has to be mentioned that the patient still has intermittent period of complaint of postprandial abdominal distention with dyspepsia and pain. The entire chart is reviewed including but not limited to the most recent lab and radiology study results, current and the previous medication list, current and the previous medical events. The case discussed at length with the staff. The most recent hemoglobin reported to be 9.6, hematocrit 29.9 with low potassium, low BUN and the creatinine with normal CEA and a normal CA 19-9. Today's blood glucose level reported to be 103. PHYSICAL EXAMINATION: GENERAL: A 67-year-old male appeared to be awake, alert, oriented. VITAL SIGNS: Afebrile with pulse of 100, respiratory rate 20 to 22, blood pressure 118/64. HEENT: Showed pale, dry oral mucous membrane. Nonicteric sclerae. LUNGS: Few scattered crepitation. Decreased air entry at bases. HEART: Positive S1 and S2. ABDOMEN: Soft with mild generalized tenderness and distention. No mass or organomegaly. No rebound tenderness or guarding. EXTREMITIES: Without significant clubbing, cyanosis, but mild lower extremity edematous changes. NEUROLOGIC: No reported new neurological deficits, sensory or motor. IMPRESSION: 1. Re-exacerbation of peptic ulcer disease. 2. Spinal fracture. 3. Hypochromic microcytic anemia that could be secondary to gastrointestinal blood loss versus chronic disease. 4. Known history of chronic obstructive pulmonary disease, drug-induced diabetes mellitus. 5. Malnutrition with hypoalbuminemia and hypoproteinemia. SUGGESTIONS: 1. Continue current management. 2. The patient is for rehab center due to his fractured spine, as per the admitting medical staff. 3. Repeat stool for occult blood. 4. Further evaluation to follow. Kaylin Weinberg MD [facility] # [id number]
--- NOTE | 2018-03-27 18:39 | PN ---
Copied To: Mukesh Correia MD Attending MD: Mukesh Correia MD DATE: 03/27/2018 SUBJECTIVE: The patient is experiencing cough, but chest pain. He is still experiencing low back pain. PHYSICAL EXAMINATION: VITAL SIGNS: Blood pressure 109/67, heart rate 102, temperature 97.8, and respirations 18. HEENT: Pale conjunctivae. CHEST: Minimal rhonchi. HEART: S1 and S2 regular. ABDOMEN: Soft. EXTREMITIES: No edema. LABORATORY DATA: Today's blood sugar is 103 and 139 respectively. ASSESSMENT: 1. Sinus tachycardia, which is physiologic response to the patient's multiple clinical problems. 2. Recent acute left femoral vein deep venous thrombosis with pulmonary embolism. 3. Rectal carcinoma, status post resection and ileostomy. 4. Chronic obstructive lung disease. 5. Status post recent fall and first lumbar spine fracture. RECOMMENDATIONS: Continue Cardizem 60 mg every 8 hours, Eliquis 5 mg twice a day, Glucophage 500 mg twice a day, morphine sulfate 2 mg intravenously every 4 hours p.r.n., Protonix 20 mg twice a day, prednisone 5 mg once a day, Robitussin 100 mg q.i.d., albuterol inhaler every 6 hours, Xanax 0.5 mg twice a day. Mukesh Correia MD
--- NOTE | 2018-03-27 23:11 | CP.PCM.PN ---
Objective - Vital Signs/Intake and Output Vital Signs (last 24 hours): Temp Pulse Resp BP Pulse Ox 98.3 F 101 H 20 115/71 98 03/27/18 15:00 03/27/18 21:20 03/27/18 15:00 03/27/18 21:20 03/27/18 15:00 Intake and Output: 03/27/18 03/28/18 18:59 06:59 Intake Total 300 Output Total 900 Balance 300 -900 - Medications Medications: Current Medications Albuterol (Ventolin Hfa 90 Mcg/Actuation (8 G)) 1 puff IH RQ6 [facility] Last Admin: 03/27/18 20:08 Dose: 1 puff Alprazolam (Xanax) 0.5 mg PO BID [facility] Last Admin: 03/27/18 21:08 Dose: 0.5 mg Apixaban (Eliquis) 5 mg PO BID [facility] Last Admin: 03/27/18 18:12 Dose: 5 mg Belladonna/Phenobarbital () 1 tab PO BID [facility] Last Admin: 03/27/18 18:13 Dose: 1 tab Bismuth Subsalicylate (Pepto Bismol) 262 mg PO BID [facility] Last Admin: 03/27/18 18:13 Dose: 262 mg Budesonide (Pulmicort Respules) 0.5 mg INH RQ12 [facility] Last Admin: 03/27/18 20:07 Dose: 0.5 mg Diltiazem HCl (Cardizem) 60 mg PO Q8 [facility] Last Admin: 03/27/18 21:08 Dose: 60 mg Guaifenesin (Robitussin) 100 mg PO QID [facility] Last Admin: 03/27/18 21:07 Dose: 100 mg Insulin Aspart (Novolog) 0 unit SC ACHS [facility] PRN Reason: Protocol Last Admin: 03/27/18 21:08 Dose: Not Given Lidocaine (Lidoderm) 2 ea TD DAILY [facility] Last Admin: 03/27/18 09:17 Dose: 2 ea Metformin HCl (Glucophage) 500 mg PO BIDCC [facility] Last Admin: 03/27/18 18:12 Dose: 500 mg Morphine Sulfate (Morphine) 2 mg IV Q4 PRN PRN Reason: Pain, moderate (4-7) Last Admin: 03/27/18 22:42 Dose: 2 mg Multivitamins (Hexavitamin) 1 tab PO DAILY [facility] Last Admin: 03/27/18 09:17 Dose: 1 tab Ondansetron HCl (Zofran Inj) 4 mg IVP Q6 PRN PRN Reason: nausea Last Admin: 03/18/18 09:05 Dose: 4 mg Pantoprazole Sodium (Protonix Ec Tab) 20 mg PO DAILY [facility] Last Admin: 03/27/18 09:17 Dose: 20 mg Prednisone (Prednisone Tab) 5 mg PO DAILY [facility] Last Admin: 03/27/18 09:17 Dose: 5 mg Pregabalin (Lyrica) 75 mg PO BID [facility] Last Admin: 03/27/18 21:07 Dose: 75 mg Roflumilast (Daliresp) 500 mcg PO DAILY [facility] Last Admin: 03/27/18 09:17 Dose: 500 mcg Fluticasone/Salmeterol (Advair Diskus 250/50) 1 puff INH RBID [facility] Last Admin: 03/27/18 20:08 Dose: 1 puff - Labs Labs: 03/24/18 07:43 03/24/18 07:43 PT 13.3 SECONDS (9.7-12.2) H 03/24/18 10:40 INR 1.2 03/24/18 10:40 APTT 31 SECONDS (21-34) 03/24/18 10:40 Assessment and Plan (1) Intractable back pain Status: Acute (2) Abdominal pain Status: Acute (3) Asthma Status: Acute (4) COPD (chronic obstructive pulmonary disease) Status: Acute (5) Allergic rhinitis Status: Chronic (6) Steroid-induced diabetes Status: Chronic
[2018-03-28] MEDS: Albuterol HFA 90 mcg/actuation (8 g) IH SCH ×3 (01:21→12:36)
--- NOTE | 2018-03-28 05:12 | PN ---
Copied To: Hal Garcia MD Attending MD: Hal Garcia MD DATE: 03/27/2018 SUBJECTIVE: The patient denies any fever or chills. He has less back pain. He has brace on his back. PHYSICAL EXAMINATION: VITAL SIGNS: Blood pressure 115/71, pulse 101, respiratory rate 20, temperature 98.3. LUNGS: Decreased air entry. CARDIOVASCULAR: S1 and S2 regular. Tachycardic. ABDOMEN: Soft. ASSESSMENT: 1. Spinal fracture at L1, the patient has a cast. 2. Chronic obstructive pulmonary disease. 3. Chronic diarrhea, status post colon cancer. PLAN: Continue current medications and physical therapy. He is for subacute rehab in [facility]. Hal Garcia MD
[2018-03-28] MEDS: Fluticasone-Salmeterol 250-50mcg Diskus INH SCH ×2 (06:50→19:18)
[2018-03-28] MEDS: Budesonide 0.5 mg/2 ml Inhal Susp UD INH SCH ×2 (06:50→19:19)
[2018-03-28 07:21] LABS: HEMOGLOBIN 10.3 g/dL (12.0-18.0); MEAN CELL VOLUME 69.6 fL (80.0-94.0); MEAN CORPUSCULAR HEMOGLOBIN 22.6 pg (27.0-31.0); MEAN CORPUSCULAR HGB CONC 32.4 g/dL (33.0-37.0); MEAN PLATELET VOLUME 7.4 fL (7.2-11.7); RBC 4.55 Mil/uL (4.40-5.90); RED CELL DISTRIBUTION WIDTH 21.6 % (11.5-14.5); WHITE BLOOD COUNT 9.1 K/uL (4.8-10.8)
[2018-03-28 07:39] LABS: BLOOD UREA NITROGEN 7 mg/dL (9-20); CALCIUM 9.5 mg/dl (8.6-10.4); GFR AFRICAN-AMERICAN > 60; GFR NON-AFRICAN AMERICAN > 60
[2018-03-28] MEDS: (Novolog) Insulin Aspart, Recombinant 100 u/ml 10 ml vial SC SCH ×3 (08:00→17:47)
[2018-03-28] MEDS: Belladonna-Phenobarbital PO SCH ×2 (10:16→17:46)
[2018-03-28] MEDS: guaiFENesin 100 mg/5 ml Syrup UD PO SCH ×3 (10:17→17:46)
[2018-03-28] MEDS: Lidocaine 5% Patch TD SCH (10:17)
[2018-03-28] MEDS: Pantoprazole 20 mg EC Tab PO SCH (10:17)
[2018-03-28] MEDS: Multiple Vitamins Tab PO SCH (10:17)
[2018-03-28] MEDS: Bismuth Subsalicylate 262 mg Chew Tab PO SCH ×2 (10:20→17:46)
--- NOTE | 2018-03-28 14:57 | PN ---
Copied To: Kaylin Weinberg MD Attending MD: Kaylin Weinberg MD DATE: 03/28/2018 LOCATION: 658, bed A. SUBJECTIVE: This 67-year-old male seen and examined in rounds early today on BiPAP with a complaint of back pain again as well as intermittent period of abdominal pain with mild nausea and dyspepsia, still have back brace is in place, and the patient reported no chest pain, palpitation, chills, fever, or evidence of active bleeding. The entire chart is reviewed including but not limited to most recent lab and radiology study results, current and the previous medication list, current and the previous medical events. Case discussed at length with the staff. Today's lab showed hemoglobin 10.3, hematocrit 31.7 with low indices highly suggestive of hypochromic microcytic anemia with CO2 content of 35 and negative of respiratory alkalosis, but normal CEA and CA 19-9 as reported before with mildly elevated alkaline phosphatase and ALT. PHYSICAL EXAMINATION: GENERAL: A 67-year-old male tolerating oral intake. VITAL SIGNS: Afebrile with pulse of 98, respiratory rate 22 to 24 with blood pressure 110/72. HEENT: Showed pale, dry oral mucous membrane. Nonicteric sclerae. LUNGS: Scattered crepitation. Decreased air entry at bases. HEART: Positive S1 and S2. ABDOMEN: Soft with mild generalized tenderness. No mass or organomegaly. No rebound tenderness or guarding. EXTREMITIES: Lower extremity, mild edematous changes. No clubbing or cyanosis. NEUROLOGIC: No reported new neurological deficits, sensory, or motor. IMPRESSION: 1. Re-exacerbation of chronic obstructive pulmonary disease with respiratory alkalosis. 2. Re-exacerbation of peptic ulcer disease. 3. Hypochromic microcytic anemia most likely secondary to chronic disease, less likely due to an acute gastrointestinal blood loss. 4. Drug-induced diabetes mellitus. 5. Spinal fracture, on back brace. SUGGESTIONS: 1. Agree with your plan. 2. Adjust oral intake with no citrus, no seeds. 3. Antireflux measure. 4. The patient may benefit from Carafate liquid 10 mL p.o. 3 times a day. 5. Further recommendation to follow. Kaylin Weinberg MD [facility] # [id number]
[2018-03-28 16:11] VITALS: BP 114/77; TEMP 98.4; O2SAT 95
[2018-03-28 17:42] VITALS: PULSE 110
--- NOTE | 2018-03-28 19:31 | PN ---
Copied To: Mukesh Correia MD Attending MD: Mukesh Correia MD DATE: 03/28/2018 SUBJECTIVE: The patient complains of pain in the left big toe. He denies any ankle pain or calf pain. He denies any chest pain. PHYSICAL EXAMINATION: VITAL SIGNS: Blood pressure 105/75, heart rate 100, temperature 97.8, respirations 20. HEENT: Normocephalic. CHEST: Minimal rhonchi. HEART: S1 and S2, regular. ABDOMEN: Soft. EXTREMITIES: Good distal pulses bilaterally and no ischemic changes involving the left or right toes. LABORATORY DATA: Hemoglobin and hematocrit 10.3 and 31.7. White count and platelet count are within normal limits. Today's SMA-7: Sodium 139, potassium 4.1, chloride 98, CO2 of 35, glucose 103, BUN 7, creatinine 0.6. ASSESSMENT: 1. Recent occlusive left femoral vein deep vein thrombosis with pulmonary embolism. 2. Physiologic sinus tachycardia. 3. Hypertension. 4. Uncontrolled diabetes mellitus. 5. Anemia. 6. Recent fall with first lumbar spine fracture. RECOMMENDATIONS: Continue Cardizem 60 mg every 8 hours, Eliquis 5 mg twice a day, Glucophage 500 mg twice a day, prednisone 5 mg daily, Xanax 0.5 mg twice a day. The patient will be transferred to [facility] this afternoon. Mukesh Correia MD
--- NOTE | 2018-03-28 23:37 | CP.PCM.DIS ---
Provider - Provider Date of Admission: 03/16/18 05:48 Attending physician: Hal Garcia MD Diagnosis - Discharge Diagnosis (1) Intractable back pain Status: Acute (2) Abdominal pain Status: Acute (3) Asthma Status: Acute (4) COPD (chronic obstructive pulmonary disease) Status: Acute (5) Allergic rhinitis Status: Chronic Priority: Medium (6) Steroid-induced diabetes Status: Chronic Hospital Course - Lab Results Lab Results: Most Recent Lab Values WBC 9.1 K/uL (4.8-10.8) 03/28/18 07:09 RBC 4.55 Mil/uL (4.40-5.90) 03/28/18 07:09 Hgb 10.3 g/dL (12.0-18.0) L 03/28/18 07:09 Hct 31.7 % (35.0-51.0) L 03/28/18 07:09 MCV 69.6 fL (80.0-94.0) L 03/28/18 07:09 MCH 22.6 pg (27.0-31.0) L 03/28/18 07:09 MCHC 32.4 g/dL (33.0-37.0) L 03/28/18 07:09 RDW 21.6 % (11.5-14.5) H 03/28/18 07:09 Plt Count 375 K/uL (130-400) 03/28/18 07:09 MPV 7.4 fL (7.2-11.7) 03/28/18 07:09 Neut % (Auto) 67.2 % (50.0-75.0) 03/24/18 07:43 Lymph % (Auto) 21.8 % (20.0-40.0) 03/24/18 07:43 [place] % (Auto) 6.5 % (0.0-10.0) 03/24/18 07:43 Eos % (Auto) 3.4 % (0.0-4.0) 03/24/18 07:43 Baso % (Auto) 1.1 % (0.0-2.0) 03/24/18 07:43 Neut # (Auto) 5.7 K/uL (1.8-7.0) 03/24/18 07:43 Lymph # (Auto) 1.9 K/uL (1.0-4.3) 03/24/18 07:43 [place] # (Auto) 0.6 K/uL (0.0-0.8) 03/24/18 07:43 Eos # (Auto) 0.3 K/uL (0.0-0.7) 03/24/18 07:43 Baso # (Auto) 0.1 K/uL (0.0-0.2) 03/24/18 07:43 PT 13.3 SECONDS (9.7-12.2) H 03/24/18 10:40 INR 1.2 03/24/18 10:40 APTT 31 SECONDS (21-34) 03/24/18 10:40 D-Dimer, Quantitative 698 ng/mlDDU (0-243) H 03/18/18 04:38 Sodium 139 mmol/L (132-148) 03/28/18 07:09 Potassium 4.1 mmol/L (3.6-5.2) 03/28/18 07:09 Chloride 98 mmol/L (98-107) 03/28/18 07:09 Carbon Dioxide 35 mmol/L (22-30) H 03/28/18 07:09 Anion Gap 11 (10-20) 03/28/18 07:09 BUN 7 mg/dL (9-20) L 03/28/18 07:09 Creatinine 0.6 mg/dL (0.8-1.5) L 03/28/18 07:09 Est GFR ( Amer) > 60 03/28/18 07:09 Est GFR (Non-Af Amer) > 60 03/28/18 07:09 POC Glucose (mg/dL) 110 mg/dL (65-110) 03/28/18 11:17 Random Glucose 103 mg/dL (75-110) 03/28/18 07:09 Calcium 9.5 mg/dl (8.6-10.4) 03/28/18 07:09 Phosphorus 2.9 mg/dL (2.5-4.5) 03/18/18 04:44 Magnesium 2.2 mg/dL (1.6-2.3) 03/28/18 07:09 Total Bilirubin 0.3 mg/dL (0.2-1.3) 03/18/18 04:44 AST 42 U/L (17-59) 03/18/18 04:44 ALT 84 U/L (21-72) H 03/18/18 04:44 Alkaline Phosphatase 250 U/L (38-126) H D 03/18/18 04:44 Total Protein 6.7 g/dL (6.3-8.3) 03/18/18 04:44 Albumin 4.1 g/dL (3.5-5.0) 03/18/18 04:44 Globulin 2.6 gm/dL (2.2-3.9) 03/18/18 04:44 Albumin/Globulin Ratio 1.6 (1.0-2.1) 03/18/18 04:44 Carcinoembryonic Ag 1.2 ng/mL (0-3.0) 03/24/18 10:40 CA 19-9 Antigen 18.7 U/mL (0-37) 03/24/18 10:40 C. difficile Ag & Toxin Negative (NEGATIVE) 03/21/18 09:24 Discharge Exam - Head Exam Head Exam: ATRAUMATIC, NORMAL INSPECTION, NORMOCEPHALIC Discharge Plan - Follow Up Plan Condition: STABLE Disposition: REHAB FACILITY/REHAB UNIT Instructions: Heart Healthy Diet, Diabetes Exchange Diet, Heart Failure, Adult (DC), Carbohydrate Counting Diet, Diabetes Diet , Back Pain (GEN) Additional Instructions: -PLACE UNDER THE SERVICE OF DR. GARCIA WHILE AT [facility]---CALL UPON ARRIVAL FOR ADMITTING ORDERS. -CONTINUE MEDICATIONS PER THE MED REC FORM---CHANGES CAN BE MADE BY ATTENDING. -MAINTAIN LUMBAR BRACE ON AT ALL TIMES AND WHILE AMBULATING. -PLEASE DO THERAPY TWICE A DAY (AFTERNOON PLEASE) AND TOLERATED. TRAIN WITH WALKER. -FALL RISK PER FACILITY PROTOCOL. -PLEASE HAVE BIPAP AT BEDSIDE AT ALL TIMES AND TO BE USED AT BEDTIME AND NEEDED. -ALSO MAINTAIN OXYGEN AT 2-3 LITERS/MINUTE VIA NASAL CANNULA AT BEDSIDE AT ALL TIMES AND TO BE USED NEEDED. -FOR FURTHER ORDERS, CONTACT ATTENDING. Referrals: Ralf Nuno MD [Staff Provider] - Jg Al MD [Staff Provider] - Kaylin Kirk [Staff Provider] - Mukesh Correia MD [Staff Provider] - Hal Garcia MD [Staff Provider] -
--- NOTE | 2018-03-29 07:00 | DS ---
Copied To: Hal Garcia MD Attending MD: Hal Garcia MD ADMISSION DIAGNOSIS: Back pain. 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 HISTORY OF PRESENT ILLNESS: This is 67-year-old male with multiple medical problems and multiple hospitalizations. He came in because of acute intractable low back pain. MRI showed lumbar disk disease and the patient was given a brace to the back. After neurosurgical evaluation, he does not need any surgical intervention. The patient did well and he is here for discharge. CONDITION UPON DISCHARGE: Stable. The patient during the course of hospitalization was seen by Neurosurgery and Pulmonary. LABORATORY DATA: WBC 9.1, hemoglobin 10.3, hematocrit 31.7, platelets 271,000. Sodium 139, potassium 4.1, chloride 98, bicarb 35, BUN 7, creatinine 0.8. The patient's MRI showed lumbar fracture. CONDITION UPON DISCHARGE: Stable. The patient is going to subacute rehab. Hal Garcia MD
== END 2018-03-28 19:35 | DRG 542 ==
LOC: C.ER 01:17 → C.9E 05:33 → OBSVTOIN 05:48 → C.3T 06:15 → C.6T 21:55
PROVIDERS: ADMIT Internal Medicine; ATTEND Internal Medicine
PROC: 5A09557 Assistance with Respiratory Ventilation, Greater than 96 Consecutive Hours, Continuous Positive Airway Pressure (ICD-10-PCS; principal; 2018-03-16)
DX: M48.56XA Collapsed vertebra, not elsewhere classified, lumbar region, initial encounter for fracture (principal); I26.99 Other pulmonary embolism without acute cor pulmonale; E46 Unspecified protein-calorie malnutrition; E87.3 Alkalosis; I13.0 Hypertensive heart and chronic kidney disease with heart failure and stage 1 through stage 4 chronic kidney disease, or unspecified chronic kidney disease; J44.1 Chronic obstructive pulmonary disease with (acute) exacerbation; I82.412 Acute embolism and thrombosis of left femoral vein; M51.9 Unspecified thoracic, thoracolumbar and lumbosacral intervertebral disc disorder; D63.8 Anemia in other chronic diseases classified elsewhere; E09.65 Drug or chemical induced diabetes mellitus with hyperglycemia; E11.22 Type 2 diabetes mellitus with diabetic chronic kidney disease; E78.5 Hyperlipidemia, unspecified; E87.6 Hypokalemia; F41.1 Generalized anxiety disorder; G47.30 Sleep apnea, unspecified; I50.9 Heart failure, unspecified; K52.9 Noninfective gastroenteritis and colitis, unspecified; N18.9 Chronic kidney disease, unspecified; Z87.891 Personal history of nicotine dependence; Z92.3 Personal history of irradiation; Z93.3 Colostomy status; Z85.048 Personal history of other malignant neoplasm of rectum, rectosigmoid junction, and anus; M81.0 Age-related osteoporosis without current pathological fracture; Z86.711 Personal history of pulmonary embolism

== ENCOUNTER 2018-03-30 19:27 | Inpatient (IN) | payer MEDICARE, BC ==
[2018-03-30 19:28] VITALS: BMI 24.2
[2018-03-30 19:59] LABS: BASO # 0.2 K/uL (0.0-0.2); BASO % 2.2 % (0.0-2.0); EOS # 0.4 K/uL (0.0-0.7); EOS % 4.7 % (0.0-4.0); HEMOGLOBIN 10.3 g/dL (12.0-18.0); LYMPH # 2.1 K/uL (1.0-4.3); LYMPH % 22.9 % (20.0-40.0); MEAN CORPUSCULAR HEMOGLOBIN 22.4 pg (27.0-31.0); MEAN PLATELET VOLUME 7.2 fL (7.2-11.7); MONO # 0.7 K/uL (0.0-0.8); MONO % 7.1 % (0.0-10.0); NEUT # 5.8 K/uL (1.8-7.0); NEUT % 63.1 % (50.0-75.0); NRBC % 0.1 % (0.0-2.0); RBC 4.61 Mil/uL (4.40-5.90); WHITE BLOOD COUNT 9.2 K/uL (4.8-10.8)
[2018-03-30 20:14] LABS: ALB/GLOB RATIO 1.5 (1.0-2.1); ALBUMIN 4.1 g/dL (3.5-5.0); ALT/SGPT 40 U/L (21-72); AST/SGOT 28 U/L (17-59); BLOOD UREA NITROGEN 6 mg/dL (9-20); CALCIUM 9.8 mg/dl (8.6-10.4); GFR AFRICAN-AMERICAN > 60; GFR NON-AFRICAN AMERICAN > 60
--- NOTE | 2018-03-30 21:01 | C.PDOC ---
History Of Present Illness 67 y/o male, with history of tachycardia, is sent to ED from senior care for evaluation of persistent tachycardia. Pt complains of chronic low back pain. Denies chest pain, palpitations, shortness of breath, fever, lightheadedness, headache, dizziness, or any other associated symptoms at this time. Time Seen by Provider: 03/30/18 19:41 Chief Complaint (Nursing): Medical Clearance History Per: Patient History/Exam Limitations: no limitations Past Medical History Reviewed: Historical Data, Nursing Documentation, Vital Signs Vital Signs: Last Vital Signs Temp 98 F 03/30/18 19:36 Pulse 114 H 03/30/18 22:18 Resp 21 03/30/18 22:18 BP 114/73 03/30/18 22:18 Pulse Ox 100 03/30/18 22:18 - Medical History PMH: Anemia, Anxiety, Arthritis, Asthma, Bronchitis, Cardia Arrhythmia (SVT), CHF, COPD, Diabetes, Emphysema, HTN, Hypercholesterolemia, Kidney Stones, Pneumonia, Chronic Kidney Disease, Sleep Apnea (ON DALIRESP) Denies: Fractures, Gastritis Surgical History: Endoscopy - [facility] Procedures ASSISTANCE WITH RESPIRATORY VENTILATION, 24-96 HRS, CPAP (08/23/17) ASSISTANCE WITH RESPIRATORY VENTILATION, <24 HRS, CPAP (11/14/17) ASSISTANCE WITH RESPIRATORY VENTILATION, >96 HRS, CPAP (03/16/18) CONTINUOUS INVASIVE MECHANICAL VENTILATION <96 CONSEC HRS (11/29/14) DILATION OF RIGHT URETER WITH INTRALUMINAL DEVICE, ENDO (03/20/17) DRAINAGE OF BLADDER WITH DRAINAGE DEVICE, VIA OPENING (12/04/17) DRAINAGE OF RECTUM, PERCUTANEOUS APPROACH (12/04/17) EXCISION OF ILEUM, OPEN APPROACH (12/04/17) EXCISION OF SIGMOID COLON, ENDO, DIAGN (03/20/17) EXCISION OF STOMACH, ENDO, DIAGN (03/20/17) EXCISION OF TRANSVERSE COLON, ENDO, DIAGN (03/20/17) INFLUENZA VACCINATION (06/02/14) INSERT ENDOTRACHEAL TUBE (11/29/14) INSERTION OF INFUSION DEV INTO SUP VENA CAVA, PERC APPROACH (01/26/18) INSERTION OF INTRALUM DEV INTO INF VENA CAVA, PERC APPROACH (03/06/18) LARYGNOSCOPY AND OTH TRACHEOSCOPY (04/18/15) MEASURE OF CARDIAC SAMPL & PRESSURE, L HEART, PERC APPROACH (12/01/15) NON-INVASIVE MECHANICAL VENTILATION (04/18/15) RESECTION OF SIGMOID COLON, OPEN APPROACH (03/20/17) RESPIRATORY VENTILATION, GREATER THAN 96 CONSECUTIVE HOURS (03/20/17) Family History: States: Unknown Family Hx - Social History Hx Tobacco Use: Yes (8 years ppd smoker. quit 1.5 years ago) Hx Alcohol Use: No Hx Substance Use: No - Immunization History Hx Tetanus Toxoid Vaccination: No Hx Influenza Vaccination: Yes Hx Pneumococcal Vaccination: Yes Review Of Systems Except As Marked, All Systems Reviewed And Found Negative. Constitutional: Negative for: Fever, Chills Cardiovascular: Negative for: Chest Pain, Palpitations Respiratory: Negative for: Cough, Shortness of Breath Neurological: Negative for: Weakness, Numbness, Headache, Dizziness Physical Exam - Physical Exam Appears: Non-toxic, No Acute Distress Skin: Normal Color, Warm, Dry Head: Atraumatic, Normacephalic Eye(s): bilateral: Normal Inspection Oral Mucosa: Moist Cardiovascular: Rhythm Regular (tachycardic) Respiratory: Normal Breath Sounds, No Rales, No Rhonchi, No Wheezing Gastrointestinal/Abdominal: Soft, No Tenderness, Other (colostomy bag to RLQ ) Extremity: Normal ROM Neurological/Psych: Oriented x3, Normal Speech ED Course And Treatment - Laboratory Results Result Diagrams: 03/30/18 19:55 03/30/18 19:55 ECG: Interpreted By Me, Viewed By Me ECG Rhythm: Sinus Tachycardia ECG Interpretation: No Acute Changes Rate From EC (bpm) O2 Sat by Pulse Oximetry: 100 (RA) Pulse Ox Interpretation: Normal Medical Decision Making Medical Decision Making: Plan: Blood work CXR EKG Case discussed with Dr. Garcia who agrees upon telemetry admission. Disposition - Disposition Disposition Time: 21:00 Condition: STABLE - Clinical Impression Clinical Impression: Tachycardia - Scribe Statement The provider has reviewed the documentation as recorded by the Scribe KP All medical record entries made by the Scribe were at my direction and personally dictated by me. I have reviewed the chart and agree that the record accurately reflects my personal performance of the history, physical exam, medical decision making, and the department course for this patient. I have also personally directed, reviewed, and agree with the discharge instructions and disposition.
[2018-03-30] MEDS ORDERED: MethylPREDNISolone 40 mg Vial IVP STA (21:45)
--- NOTE | 2018-03-30 21:57 | CP.PCM.HP ---
Present on Admission - Present on Admission Any Indicators Present on Admission: No Past Patient History - Infectious Disease Hx of Infectious Diseases: None - Past Medical History & Family History Past Medical History?: Yes - Past Social History Smoking Status: Former Smoker - CARDIAC Hx Cardia Arrhythmia: Yes (SVT) Hx Congestive Heart Failure: Yes Hx Hypercholesterolemia: Yes Hx Hypertension: Yes - PULMONARY Hx Asthma: Yes Hx Bronchitis: Yes Hx Chronic Obstructive Pulmonary Disease (COPD): Yes Hx Emphysema: Yes Hx Pneumonia: Yes Hx Sleep Apnea: Yes (ON DALIRESP) - NEUROLOGICAL Hx Neurological Disorder: No HX Cerebrovascular Accident: No - HEENT Hx Cataracts: Yes - RENAL Hx Chronic Kidney Disease: Yes Hx Kidney Stones: Yes - ENDOCRINE/METABOLIC Hx Diabetes Mellitus Type 2: Yes - HEMATOLOGICAL/ONCOLOGICAL Hx Anemia: Yes - INTEGUMENTARY Other/Comment: Scattered ecchymosis on both arms. - MUSCULOSKELETAL/RHEUMATOLOGICAL Hx Arthritis: Yes Hx Fractures: No - GASTROINTESTINAL Hx Gastritis: No - PSYCHIATRIC Hx Anxiety: Yes Hx Substance Use: No - SURGICAL HISTORY Hx Surgeries: Yes Hx Cataract Extraction: Yes (left eye, right eye) Hx Cardiac Catheterization: Yes (11/2015) Hx Eye Surgery: Yes Hx Pulmonary Surgery: Yes Other/Comment: colon resection with right ileostomy - ANESTHESIA Hx Anesthesia: Yes Hx Anesthesia Reactions: No Hx Malignant Hyperthermia: No Meds Home Medications: Home Medication List Medication Instructions Recorded Confirmed Type [id number] [Cardizem] 60 mg PO QID 30 Days tab 04/02/18 Rx Allergies/Adverse Reactions: Allergies Allergy/AdvReac Type Severity Reaction Status Date / Time acetaminophen [From Tylenol] Allergy RASH Verified 03/30/18 19:39 FISH Allergy SWELLING Verified 03/30/18 19:39 shrimp Allergy SHORTNESS Verified 03/30/18 19:39 OF BREATH IV dye Allergy Severe ANAPHYLAXIS Uncoded 03/30/18 19:39 Results - Vital Signs Recent Vital Signs: Last Vital Signs Temp 98 F 03/30/18 19:36 Pulse 116 H 03/30/18 21:08 Resp 19 03/30/18 21:08 BP 119/80 03/30/18 21:08 Pulse Ox 99 03/30/18 21:08 - Labs Result Diagrams: 03/31/18 04:50 04/01/18 11:23 Labs: Laboratory Results - last 24 hr 03/30/18 03/30/18 19:55 19:55 WBC 9.2 RBC 4.61 Hgb 10.3 L Hct 32.3 L MCV 70.0 L MCH 22.4 L MCHC 32.0 L RDW 21.0 H Plt Count 429 H MPV 7.2 Neut % (Auto) 63.1 Lymph % (Auto) 22.9 [place] % (Auto) 7.1 Eos % (Auto) 4.7 H Baso % (Auto) 2.2 H Neut # (Auto) 5.8 Lymph # (Auto) 2.1 [place] # (Auto) 0.7 Eos # (Auto) 0.4 Baso # (Auto) 0.2 Sodium 142 Potassium 5.1 Chloride 102 Carbon Dioxide 29 Anion Gap 16 BUN 6 L Creatinine 0.6 L Est GFR ( Amer) > 60 Est GFR (Non-Af Amer) > 60 Random Glucose 122 H Calcium 9.8 Total Bilirubin 0.3 AST 28 ALT 40 Alkaline Phosphatase 212 H Troponin I < 0.0120 Total Protein 6.9 Albumin 4.1 Globulin 2.8 Albumin/Globulin Ratio 1.5 TSH 3rd Generation 0.68
[2018-03-30] MEDS: (Novolog) Insulin Aspart, Recombinant 100 u/ml 10 ml vial SC SCH (22:06)
[2018-03-30] MEDS: Sodium Chloride 0.9% 1,000 ML IV SCH (22:09)
[2018-03-30] MEDS ORDERED: Sodium Chloride 0.9% 1,000 ML ONE (22:10)
[2018-03-30] MEDS: guaiFENesin 100 mg/5 ml Syrup UD PO SCH (22:26)
[2018-03-30] MEDS: Bismuth Subsalicylate 262 mg Chew Tab PO SCH (22:39)
[2018-03-31] MEDS ORDERED: Albuterol HFA 90 mcg/actuation (8 g) IH PRN
[2018-03-31 04:52] LABS: BASO # 0.1 K/uL (0.0-0.2); BASO % 0.8 % (0.0-2.0); EOS % 0.2 % (0.0-4.0); HEMOGLOBIN 10.2 g/dL (12.0-18.0); LYMPH % 14.9 % (20.0-40.0); MEAN CELL VOLUME 69.8 fL (80.0-94.0); MEAN CORPUSCULAR HEMOGLOBIN 22.1 pg (27.0-31.0); MEAN CORPUSCULAR HGB CONC 31.7 g/dL (33.0-37.0); MEAN PLATELET VOLUME 7.6 fL (7.2-11.7); MONO # 0.1 K/uL (0.0-0.8); MONO % 2.1 % (0.0-10.0); NEUT # 5.3 K/uL (1.8-7.0); RBC 4.6 Mil/uL (4.40-5.90); RED CELL DISTRIBUTION WIDTH 21.5 % (11.5-14.5); WHITE BLOOD COUNT 6.4 K/uL (4.8-10.8)
[2018-03-31 05:16] LABS: BLOOD UREA NITROGEN 6 mg/dL (9-20); CALCIUM 9.7 mg/dl (8.6-10.4); GFR AFRICAN-AMERICAN > 60; GFR NON-AFRICAN AMERICAN > 60
--- NOTE | 2018-03-31 09:39 | RAD ---
Chest x-ray single frontal view History: Chest pain. Comparison: None available. Findings: Biapical pleural thickening with upper lobe granulomatous changes. Hyperinflation suggestive for COPD and or emphysematous changes. Small nodular density at the left lung base. Right hilar prominence. Tortuous aorta. Degenerative changes in the spine and shoulders. Impression: Biapical pleural thickening with upper lobe granulomatous changes. Hyperinflation suggestive for COPD and or emphysematous changes. Small nodular density at the left lung base. Right hilar prominence.
[2018-03-31] MEDS ORDERED: [UNRECOGNIZED DRUG - REMARK] MC SCH (10:00)
[2018-03-31] MEDS ORDERED: [UNRECOGNIZED DRUG - OTHER] MC SCH (10:00)
[2018-03-31] MEDS: Fluticasone-Salmeterol 250-50mcg Diskus INH SCH ×2 (10:43→19:26)
[2018-03-31] MEDS: Budesonide 0.5 mg/2 ml Inhal Susp UD INH SCH ×2 (10:43→19:18)
[2018-03-31] MEDS: Lidocaine 5% Patch TD SCH (11:13)
[2018-03-31] MEDS: Pantoprazole 40 mg EC Tab PO SCH (11:15)
[2018-03-31] MEDS: (Novolog) Insulin Aspart, Recombinant 100 u/ml 10 ml vial SC SCH ×4 (11:17→21:58)
[2018-03-31] MEDS: guaiFENesin 100 mg/5 ml Syrup UD PO SCH ×4 (11:17→21:56)
[2018-03-31] MEDS: Sodium Chloride 0.9% 1,000 ML IV SCH ×2 (11:18→17:41)
[2018-03-31] MEDS: Bismuth Subsalicylate 262 mg Chew Tab PO SCH ×2 (11:29→19:00)
[2018-03-31] MEDS: Albuterol-Ipratrop 3 mg / 0.5 (3 ml) UD INH SCH (19:18)
--- NOTE | 2018-03-31 20:52 | CP.PCM.PN ---
Objective - Vital Signs/Intake and Output Vital Signs (last 24 hours): Temp Pulse Resp BP Pulse Ox 97.6 F 80 20 107/66 100 03/31/18 15:15 03/31/18 19:27 03/31/18 15:15 03/31/18 15:15 03/31/18 15:15 Intake and Output: 03/31/18 04/01/18 18:59 06:59 Intake Total 480 Output Total 600 Balance -120 - Medications Medications: Current Medications Albuterol (Ventolin Hfa 90 Mcg/Actuation (8 G)) 2 puff IH RQ6 PRN PRN Reason: Shortness of Breath Albuterol/Ipratropium (Duoneb 3 Mg/0.5 Mg (3 Ml) Ud) 3 ml INH RQ6 [facility] Last Admin: 03/31/18 19:18 Dose: 3 ml Alprazolam (Xanax) 0.5 mg PO Q12 [facility] Stop: 04/06/18 22:01 Last Admin: 03/31/18 11:14 Dose: 0.5 mg Apixaban (Eliquis) 5 mg PO BID [facility] Last Admin: 03/31/18 17:41 Dose: 5 mg Bismuth Subsalicylate (Pepto Bismol) 262 mg PO BID [facility] Last Admin: 03/31/18 19:00 Dose: 262 mg Budesonide (Pulmicort Respules) 0.5 mg INH RQ12 [facility] Last Admin: 03/31/18 19:18 Dose: 0.5 mg Diltiazem HCl (Cardizem) 60 mg PO QID [facility] Last Admin: 03/31/18 17:41 Dose: 60 mg Guaifenesin (Robitussin) 200 mg PO QID [facility] Sodium Chloride (Sodium Chloride 0.9%) 1,000 mls @ 100 mls/hr IV .Q10H [facility] Last Admin: 03/31/18 17:41 Dose: 100 mls/hr Insulin Aspart (Novolog) 0 unit SC ACHS [facility] PRN Reason: Protocol Last Admin: 03/31/18 17:23 Dose: Not Given Insulin Human Regular (Novolin R) 0 unit SC ACHS [facility] PRN Reason: Protocol Lidocaine (Lidoderm) 2 ea TD DAILY [facility] Last Admin: 03/31/18 11:13 Dose: 2 ea Metformin HCl (Glucophage) 500 mg PO BID [facility] Last Admin: 03/31/18 17:42 Dose: 500 mg Morphine Sulfate (Morphine) 2 mg IVP Q4H PRN PRN Reason: Pain, severe (8-10) Last Admin: 03/31/18 19:40 Dose: 2 mg Pantoprazole Sodium (Protonix Ec Tab) 40 mg PO DAILY [facility] Last Admin: 03/31/18 11:15 Dose: 40 mg Prednisone (Prednisone Tab) 5 mg PO DAILY [facility] Last Admin: 03/31/18 11:15 Dose: 5 mg Pregabalin (Lyrica) 75 mg PO BID [facility] Last Admin: 03/31/18 17:42 Dose: 75 mg Roflumilast (Daliresp) 500 mcg PO DAILY [facility] Last Admin: 03/31/18 11:28 Dose: 500 mcg Fluticasone/Salmeterol (Advair Diskus 250/50) 1 puff INH RBID [facility] Last Admin: 03/31/18 19:26 Dose: Not Given - Labs Labs: 03/31/18 04:50 03/31/18 04:50
[2018-03-31] MEDS: (Novolin R) Insulin Human Regular 100 units/ml vial SC SCH (21:58)
[2018-04-01] MEDS: Albuterol-Ipratrop 3 mg / 0.5 (3 ml) UD INH SCH ×4 (01:49→19:13)
--- NOTE | 2018-04-01 02:24 | PN ---
Copied To: Hal Garcia MD Attending MD: Hal Garcia MD DATE: 03/31/2018 SUBJECTIVE: The patient's tachycardia is improved. He is felling better. He is afebrile. No shortness of breath. Positive cough. Positive wheezing. PHYSICAL EXAMINATION: VITAL SIGNS: BP 107/66, pulse 93, respiratory rate 20, temperature 97.6. LUNGS: Bilateral decreased air entry. Positive rhonchi. CARDIOVASCULAR SYSTEM: S1 and S2 are regular. ABDOMEN: Soft. ASSESSMENT: 1. Tachycardia, most likely it was multifactorial combination of dehydration, chronic obstructive pulmonary disease, chronic obstructive pulmonary disease medication, and pulmonary embolism. 2. Pulmonary embolism, on Eliquis and stable. 3. Steroid-induced diabetes. PLAN: Continue IV fluids. Accu-Cheks sliding scale. Monitor the patient. Hal Garcia MD
[2018-04-01] MEDS: Sodium Chloride 0.9% 1,000 ML IV SCH ×2 (03:36→21:02)
--- NOTE | 2018-04-01 06:00 | HP ---
Copied To: Hal Garcia MD Attending MD: Hal Garcia MD CHIEF COMPLAINT: Rapid heartbeat x1. HISTORY OF PRESENT ILLNESS: This is a 67-year-old male well known to me with history of severe end-stage chronic obstructive pulmonary disease and history of recurrent C. diff colitis. He has a colostomy in right lower quadrant, allergic rhinitis, anxiety. The patient was recently discharged. He had a recent spinal fracture and he was discharged to subacute rehab in [facility] in [place] and since this morning he has been having tachycardia, rapid heart rate, and he has been bringing it to the attention of the nurses. I also received a call from the nurse and I advised to give the patient Cardizem p.o. and if the patient does not improve, transfer the patient to the hospital and the patient was transferred to the hospital. He has fatigue and generalized weakness, anorexia, and malaise. There is no history of fevers, chills, or rigors. He denies any history of dysuria, hematuria, or polyuria. He denies any sputum production. He has cough. He has wheezing. He has a large volume output in the colostomy bag; however, the C. diff has been negative repeatedly. PAST MEDICAL HISTORY: COPD, steroid-induced diabetes, allergic rhinitis, anxiety, depression. Severe COPD, stage 1 colon cancer, status post resection with resultant colostomy. SOCIAL HISTORY: Ex-smoker. CURRENT MEDICATIONS: The patient is on prednisone, metformin, diltiazem, Daliresp, Lyrica, Protonix, Lidoderm patch, Novolog, Advair, Pulmicort, Pepto-Bismol, Eliquis, Ventolin, Xanax, Carafate, multivitamin, Flexeril, and . PHYSICAL EXAMINATION: GENERAL: An elderly male, in moderate distress. He is worried. VITAL SIGNS: Blood pressure 119/80, pulse 93, respiratory rate 19, temperature . SKIN: Bruises all over. HEENT: Atraumatic, normocephalic. Negative pallor. Negative jaundice. Extraocular movements are intact. NECK: Supple. No JVD. No lymph node. Using accessory muscle. CHEST: Chest wall, he has barrel chest. LUNGS: Bilateral expiratory wheeze, expiratory rhonchi, decreased air entry. CVS: S1 and S2 regular. Tachycardic, no heaves, no chills, no murmur, no rubs. ABDOMEN: Soft, nontender. Bowel sounds are positive. Colostomy site is clean. Drainage decreased somewhat. EXTREMITIES: Legs, normal extremities. The patient has clubbing. ASSESSMENT: 1. Tachycardia large volume diarrhea in the colostomy, it is noninfectious in etiology. 2. 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 3. Pulmonary embolism. The patient has history of pulmonary embolism, he is on Eliquis and he has prior inferior vena cava filter. PLAN: Admit. Detailed orders written. Seen and examined. Hal Garcia MD
[2018-04-01] MEDS: (Novolog) Insulin Aspart, Recombinant 100 u/ml 10 ml vial SC SCH (07:20)
[2018-04-01] MEDS: (Novolin R) Insulin Human Regular 100 units/ml vial SC SCH ×4 (07:20→21:19)
[2018-04-01] MEDS: Budesonide 0.5 mg/2 ml Inhal Susp UD INH SCH ×2 (09:04→19:13)
[2018-04-01] MEDS: Fluticasone-Salmeterol 250-50mcg Diskus INH SCH ×2 (09:06→19:00)
[2018-04-01] MEDS ORDERED: Sod Polystyrene Sulf 15 gm/60 ml Susp PO ONE (10:23)
[2018-04-01] MEDS: guaiFENesin 100 mg/5 ml Syrup UD PO SCH ×4 (10:42→21:00)
[2018-04-01] MEDS: Bismuth Subsalicylate 262 mg Chew Tab PO SCH ×2 (10:43→18:15)
[2018-04-01] MEDS: Pantoprazole 40 mg EC Tab PO SCH (10:43)
[2018-04-01] MEDS: Lidocaine 5% Patch TD SCH (10:43)
[2018-04-01 11:43] LABS: BLOOD UREA NITROGEN 4 mg/dL (9-20); CALCIUM 8.8 mg/dl (8.6-10.4); GFR AFRICAN-AMERICAN > 60; GFR NON-AFRICAN AMERICAN > 60
[2018-04-01 15:51] VITALS: RESP 20
--- NOTE | 2018-04-01 23:51 | CP.PCM.PN ---
Objective - Vital Signs/Intake and Output Vital Signs (last 24 hours): Temp Pulse Resp BP Pulse Ox 98.4 F 99 H 20 103/70 98 04/01/18 15:00 04/01/18 15:25 04/01/18 15:00 04/01/18 15:00 04/01/18 15:00 - Medications Medications: Current Medications Albuterol (Ventolin Hfa 90 Mcg/Actuation (8 G)) 2 puff IH RQ6 PRN PRN Reason: Shortness of Breath Albuterol/Ipratropium (Duoneb 3 Mg/0.5 Mg (3 Ml) Ud) 3 ml INH RQ6 [facility] Last Admin: 04/01/18 19:13 Dose: 3 ml Alprazolam (Xanax) 0.5 mg PO Q12 [facility] Stop: 04/06/18 22:01 Last Admin: 04/01/18 21:00 Dose: 0.5 mg Apixaban (Eliquis) 5 mg PO BID [facility] Last Admin: 04/01/18 18:13 Dose: 5 mg Bismuth Subsalicylate (Pepto Bismol) 262 mg PO BID [facility] Last Admin: 04/01/18 18:15 Dose: 262 mg Budesonide (Pulmicort Respules) 0.5 mg INH RQ12 [facility] Last Admin: 04/01/18 19:13 Dose: 0.5 mg Diltiazem HCl (Cardizem) 60 mg PO QID [facility] Last Admin: 04/01/18 21:00 Dose: 60 mg Guaifenesin (Robitussin) 200 mg PO QID [facility] Last Admin: 04/01/18 21:00 Dose: 200 mg Sodium Chloride (Sodium Chloride 0.9%) 1,000 mls @ 100 mls/hr IV .Q10H [facility] Last Admin: 04/01/18 21:02 Dose: Not Given Insulin Human Regular (Novolin R) 0 unit SC ACHS [facility] PRN Reason: Protocol Last Admin: 04/01/18 21:19 Dose: Not Given Lidocaine (Lidoderm) 2 ea TD DAILY [facility] Last Admin: 04/01/18 10:43 Dose: 2 ea Metformin HCl (Glucophage) 500 mg PO BID [facility] Last Admin: 04/01/18 18:13 Dose: 500 mg Morphine Sulfate (Morphine) 2 mg IVP Q4H PRN PRN Reason: Pain, severe (8-10) Last Admin: 04/01/18 20:56 Dose: 2 mg Pantoprazole Sodium (Protonix Ec Tab) 40 mg PO DAILY [facility] Last Admin: 04/01/18 10:43 Dose: 40 mg Prednisone (Prednisone Tab) 5 mg PO DAILY [facility] Last Admin: 04/01/18 10:44 Dose: 5 mg Pregabalin (Lyrica) 75 mg PO BID [facility] Last Admin: 04/01/18 18:14 Dose: 75 mg Roflumilast (Daliresp) 500 mcg PO DAILY [facility] Last Admin: 04/01/18 10:43 Dose: 500 mcg Fluticasone/Salmeterol (Advair Diskus 250/50) 1 puff INH RBID [facility] Last Admin: 04/01/18 09:06 Dose: Not Given - Labs Labs: 03/31/18 04:50 04/01/18 11:23
[2018-04-02] MEDS: Sodium Chloride 0.9% 1,000 ML IV SCH ×2 (00:02→11:06)
[2018-04-02] MEDS: Albuterol-Ipratrop 3 mg / 0.5 (3 ml) UD INH SCH ×4 (01:11→19:45)
--- NOTE | 2018-04-02 05:38 | PN ---
Copied To: Hal Garcia MD Attending MD: Hal Garcia MD DATE: 04/02/2018 SUBJECTIVE: The patient is feeling a lot better. No short of breath. No chest pain. Electrolytes had been corrected. PHYSICAL EXAMINATION: VITAL SIGNS: BP 123/70, pulse is 99, respiratory rate 20, and temperature 98.4. LUNGS: Decreased air entry. Positive rhonchi. CARDIOVASCULAR SYSTEM: S1 and S2 are regular. ABDOMEN: Soft. ASSESSMENT: 1. Lumbar disk fracture. 2. Tachycardia, atrial flutter versus supraventricular tachycardia. 3. Dehydration. 4. Pulmonary embolism. 5. 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 PLAN: Monitor the patient. Hal Garcia MD
[2018-04-02] MEDS: Fluticasone-Salmeterol 250-50mcg Diskus INH SCH ×2 (07:16→19:45)
[2018-04-02] MEDS: Budesonide 0.5 mg/2 ml Inhal Susp UD INH SCH ×2 (07:17→19:45)
[2018-04-02] MEDS: (Novolin R) Insulin Human Regular 100 units/ml vial SC SCH ×4 (08:23→21:40)
[2018-04-02] MEDS: guaiFENesin 100 mg/5 ml Syrup UD PO SCH ×4 (09:35→21:37)
[2018-04-02] MEDS: Bismuth Subsalicylate 262 mg Chew Tab PO SCH ×2 (09:36→17:57)
[2018-04-02] MEDS: Lidocaine 5% Patch TD SCH (09:36)
[2018-04-02] MEDS: Pantoprazole 40 mg EC Tab PO SCH (09:36)
--- NOTE | 2018-04-02 14:40 | CP.PCM.PN ---
Subjective - Date & Time of Evaluation Date of Evaluation: 04/02/18 Time of Evaluation: 13:00 - Subjective Subjective: The patient seen and examined 67-year-old male with end-stage COPD, multiple admissions for COPD exacerbation , anxiety, obstructive sleep apnea was seen, complaining of shortness of breath that started this morning and was placed on BiPAP, denies fever chills, denies chest pain Objective - Vital Signs/Intake and Output Vital Signs (last 24 hours): Temp Pulse Resp BP Pulse Ox 97.9 F 102 H 20 109/72 98 04/02/18 07:13 04/02/18 14:01 04/02/18 07:13 04/02/18 07:13 04/02/18 07:13 - Medications Medications: Current Medications Albuterol (Ventolin Hfa 90 Mcg/Actuation (8 G)) 2 puff IH RQ6 PRN PRN Reason: Shortness of Breath Albuterol/Ipratropium (Duoneb 3 Mg/0.5 Mg (3 Ml) Ud) 3 ml INH RQ6 [facility] Last Admin: 04/02/18 13:58 Dose: 3 ml Alprazolam (Xanax) 0.5 mg PO Q12 [facility] Stop: 04/06/18 22:01 Last Admin: 04/02/18 09:36 Dose: 0.5 mg Apixaban (Eliquis) 5 mg PO BID [facility] Last Admin: 04/02/18 09:39 Dose: 5 mg Bismuth Subsalicylate (Pepto Bismol) 262 mg PO BID [facility] Last Admin: 04/02/18 09:36 Dose: 262 mg Budesonide (Pulmicort Respules) 0.5 mg INH RQ12 [facility] Last Admin: 04/02/18 07:17 Dose: Not Given Diltiazem HCl (Cardizem) 60 mg PO QID [facility] Last Admin: 04/02/18 09:35 Dose: 60 mg Guaifenesin (Robitussin) 200 mg PO QID [facility] Last Admin: 04/02/18 09:35 Dose: 200 mg Sodium Chloride (Sodium Chloride 0.9%) 1,000 mls @ 100 mls/hr IV .Q10H [facility] Last Admin: 04/02/18 11:06 Dose: Not Given Insulin Human Regular (Novolin R) 0 unit SC ACHS [facility] PRN Reason: Protocol Last Admin: 04/02/18 11:07 Dose: Not Given Lidocaine (Lidoderm) 2 ea TD DAILY [facility] Last Admin: 04/02/18 09:36 Dose: 2 ea Metformin HCl (Glucophage) 500 mg PO BID [facility] Last Admin: 04/02/18 09:35 Dose: 500 mg Morphine Sulfate (Morphine) 2 mg IVP Q4H PRN PRN Reason: Pain, severe (8-10) Last Admin: 04/02/18 09:47 Dose: 2 mg Pantoprazole Sodium (Protonix Ec Tab) 40 mg PO DAILY [facility] Last Admin: 04/02/18 09:36 Dose: 40 mg Prednisone (Prednisone Tab) 5 mg PO DAILY [facility] Last Admin: 04/02/18 09:36 Dose: 5 mg Pregabalin (Lyrica) 75 mg PO BID [facility] Last Admin: 04/02/18 09:36 Dose: 75 mg Roflumilast (Daliresp) 500 mcg PO DAILY [facility] Last Admin: 04/02/18 09:36 Dose: 500 mcg Fluticasone/Salmeterol (Advair Diskus 250/50) 1 puff INH RBID [facility] Last Admin: 04/02/18 07:16 Dose: Not Given - Labs Labs: 03/31/18 04:50 04/01/18 11:23 - Head Exam Head Exam: ATRAUMATIC, NORMOCEPHALIC - Eye Exam Eye Exam: Normal appearance - ENT Exam ENT Exam: Mucous Membranes Moist - Respiratory Exam Respiratory Exam: Decreased Breath Sounds - Cardiovascular Exam Cardiovascular Exam: REGULAR RHYTHM - GI/Abdominal Exam GI & Abdominal Exam: Soft, Normal Bowel Sounds Assessment and Plan (1) COPD (chronic obstructive pulmonary disease) Assessment & Plan: continue steroids, nebulizer treatment, BiPAP and current medication Status: Acute
--- NOTE | 2018-04-02 14:59 | CP.PCM.PN ---
Subjective - Date & Time of Evaluation Date of Evaluation: 04/02/18 Time of Evaluation: 14:59 Objective - Vital Signs/Intake and Output Vital Signs (last 24 hours): Temp Pulse Resp BP Pulse Ox 97.9 F 102 H 20 109/72 98 04/02/18 07:13 04/02/18 14:01 04/02/18 07:13 04/02/18 07:13 04/02/18 07:13 - Medications Medications: Current Medications Albuterol (Ventolin Hfa 90 Mcg/Actuation (8 G)) 2 puff IH RQ6 PRN PRN Reason: Shortness of Breath Albuterol/Ipratropium (Duoneb 3 Mg/0.5 Mg (3 Ml) Ud) 3 ml INH RQ6 [facility] Last Admin: 04/02/18 13:58 Dose: 3 ml Alprazolam (Xanax) 0.5 mg PO Q12 [facility] Stop: 04/06/18 22:01 Last Admin: 04/02/18 09:36 Dose: 0.5 mg Apixaban (Eliquis) 5 mg PO BID [facility] Last Admin: 04/02/18 09:39 Dose: 5 mg Bismuth Subsalicylate (Pepto Bismol) 262 mg PO BID [facility] Last Admin: 04/02/18 09:36 Dose: 262 mg Budesonide (Pulmicort Respules) 0.5 mg INH RQ12 [facility] Last Admin: 04/02/18 07:17 Dose: Not Given Diltiazem HCl (Cardizem) 60 mg PO QID [facility] Last Admin: 04/02/18 14:50 Dose: 60 mg Guaifenesin (Robitussin) 200 mg PO QID [facility] Last Admin: 04/02/18 14:50 Dose: 200 mg Sodium Chloride (Sodium Chloride 0.9%) 1,000 mls @ 100 mls/hr IV .Q10H [facility] Last Admin: 04/02/18 11:06 Dose: Not Given Insulin Human Regular (Novolin R) 0 unit SC ACHS [facility] PRN Reason: Protocol Last Admin: 04/02/18 11:07 Dose: Not Given Lidocaine (Lidoderm) 2 ea TD DAILY [facility] Last Admin: 04/02/18 09:36 Dose: 2 ea Metformin HCl (Glucophage) 500 mg PO BID [facility] Last Admin: 04/02/18 09:35 Dose: 500 mg Morphine Sulfate (Morphine) 2 mg IVP Q4H PRN PRN Reason: Pain, severe (8-10) Last Admin: 04/02/18 09:47 Dose: 2 mg Pantoprazole Sodium (Protonix Ec Tab) 40 mg PO DAILY [facility] Last Admin: 04/02/18 09:36 Dose: 40 mg Prednisone (Prednisone Tab) 5 mg PO DAILY [facility] Last Admin: 04/02/18 09:36 Dose: 5 mg Pregabalin (Lyrica) 75 mg PO BID [facility] Last Admin: 04/02/18 09:36 Dose: 75 mg Roflumilast (Daliresp) 500 mcg PO DAILY [facility] Last Admin: 04/02/18 09:36 Dose: 500 mcg Fluticasone/Salmeterol (Advair Diskus 250/50) 1 puff INH RBID [facility] Last Admin: 04/02/18 07:16 Dose: Not Given - Labs Labs: 03/31/18 04:50 04/01/18 11:23 Assessment and Plan - Assessment and Plan (Free Text) Assessment: please f/u with Dr. Garcia office in 1 week Please f/u with Dr. Nuno office in 2 weeks Continue medication as per med rec. new prescription given cardizem po qid activity as tolerated call dr garcia or go to the emergency room if symptom return or worsening
--- NOTE | 2018-04-02 16:40 | CARD ---
APPROVED REPORT Date of service: 03/30/2018 EKG Measurement Heart [id number] <Conclusion> Sinus tachycardia Otherwise normal ECG
--- NOTE | 2018-04-02 22:16 | CP.PCM.PN ---
Objective - Vital Signs/Intake and Output Vital Signs (last 24 hours): Temp Pulse Resp BP Pulse Ox 98.2 F 115 H 20 112/72 98 04/02/18 15:00 04/02/18 18:00 04/02/18 15:00 04/02/18 18:00 04/02/18 15:00 Intake and Output: 04/02/18 04/03/18 18:59 06:59 Intake Total 900 Balance 900 - Medications Medications: Current Medications Albuterol (Ventolin Hfa 90 Mcg/Actuation (8 G)) 2 puff IH RQ6 PRN PRN Reason: Shortness of Breath Albuterol/Ipratropium (Duoneb 3 Mg/0.5 Mg (3 Ml) Ud) 3 ml INH RQ6 [facility] Last Admin: 04/02/18 19:45 Dose: 3 ml Alprazolam (Xanax) 0.5 mg PO Q12 [facility] Stop: 04/06/18 22:01 Last Admin: 04/02/18 21:38 Dose: 0.5 mg Apixaban (Eliquis) 5 mg PO BID [facility] Last Admin: 04/02/18 17:57 Dose: 5 mg Bismuth Subsalicylate (Pepto Bismol) 262 mg PO BID [facility] Last Admin: 04/02/18 17:57 Dose: 262 mg Budesonide (Pulmicort Respules) 0.5 mg INH RQ12 [facility] Last Admin: 04/02/18 19:45 Dose: 0.5 mg Diltiazem HCl (Cardizem) 60 mg PO QID [facility] Last Admin: 04/02/18 21:38 Dose: 60 mg Guaifenesin (Robitussin) 200 mg PO QID [facility] Last Admin: 04/02/18 21:37 Dose: 200 mg Sodium Chloride (Sodium Chloride 0.9%) 1,000 mls @ 100 mls/hr IV .Q10H [facility] Last Admin: 04/02/18 11:06 Dose: Not Given Insulin Human Regular (Novolin R) 0 unit SC ACHS [facility] PRN Reason: Protocol Last Admin: 04/02/18 21:40 Dose: Not Given Lidocaine (Lidoderm) 2 ea TD DAILY [facility] Last Admin: 04/02/18 09:36 Dose: 2 ea Metformin HCl (Glucophage) 500 mg PO BID [facility] Last Admin: 04/02/18 17:57 Dose: 500 mg Morphine Sulfate (Morphine) 2 mg IVP Q4H PRN PRN Reason: Pain, severe (8-10) Last Admin: 04/02/18 16:53 Dose: 2 mg Pantoprazole Sodium (Protonix Ec Tab) 40 mg PO DAILY [facility] Last Admin: 04/02/18 09:36 Dose: 40 mg Prednisone (Prednisone Tab) 5 mg PO DAILY [facility] Last Admin: 04/02/18 09:36 Dose: 5 mg Pregabalin (Lyrica) 75 mg PO BID [facility] Last Admin: 04/02/18 17:56 Dose: 75 mg Roflumilast (Daliresp) 500 mcg PO DAILY [facility] Last Admin: 04/02/18 09:36 Dose: 500 mcg Fluticasone/Salmeterol (Advair Diskus 250/50) 1 puff INH RBID [facility] Last Admin: 04/02/18 19:45 Dose: Not Given - Labs Labs: 03/31/18 04:50 04/01/18 11:23
[2018-04-03] MEDS: Albuterol-Ipratrop 3 mg / 0.5 (3 ml) UD INH SCH ×3 (03:28→14:12)
[2018-04-03] MEDS: (Novolin R) Insulin Human Regular 100 units/ml vial SC SCH ×3 (07:27→17:34)
--- NOTE | 2018-04-03 08:10 | PN ---
Copied To: Hal Garcia MD Attending MD: Hal Garcia MD DATE: 04/02/2018 SUBJECTIVE: He is feeling better. He is afebrile. He has decreased back pain. He gets tachycardia, but his tachycardia is compensatory for COPD. It is also side effect of his COPD medication. PHYSICAL EXAMINATION: VITAL SIGNS: BP 112/72, pulse 115, respiratory rate 20, temperature 98.2. LUNGS: Decreased air entry. Positive rhonchi. CARDIOVASCULAR SYSTEM: S1, S2 regular. ABDOMEN: Soft. ASSESSMENT: 1. Chronic obstructive pulmonary disease exacerbation. 2. Sinus tachycardia due to chronic obstructive pulmonary disease medication. 3. Back fracture, status post . 4. Steroid-induced diabetes. PLAN: Continue current medications. Hal Garcia MD
[2018-04-03] MEDS: Fluticasone-Salmeterol 250-50mcg Diskus INH SCH (08:31)
[2018-04-03] MEDS: Budesonide 0.5 mg/2 ml Inhal Susp UD INH SCH (08:32)
[2018-04-03] MEDS: Bismuth Subsalicylate 262 mg Chew Tab PO SCH ×2 (09:57→17:35)
[2018-04-03] MEDS: Pantoprazole 40 mg EC Tab PO SCH (09:57)
[2018-04-03] MEDS: Lidocaine 5% Patch TD SCH (09:57)
[2018-04-03] MEDS: guaiFENesin 100 mg/5 ml Syrup UD PO SCH ×3 (09:58→17:35)
[2018-04-03 16:44] VITALS: BP 99/70; PULSE 109; TEMP 98.2; O2SAT 98
--- NOTE | 2018-04-04 22:43 | CP.PCM.DIS ---
Provider - Provider Date of Admission: 04/01/18 16:16 Attending physician: Hal Garcia MD Hospital Course - Lab Results Lab Results: Most Recent Lab Values WBC 6.4 K/uL (4.8-10.8) 03/31/18 04:50 RBC 4.60 Mil/uL (4.40-5.90) 03/31/18 04:50 Hgb 10.2 g/dL (12.0-18.0) L 03/31/18 04:50 Hct 32.1 % (35.0-51.0) L 03/31/18 04:50 MCV 69.8 fL (80.0-94.0) L 03/31/18 04:50 MCH 22.1 pg (27.0-31.0) L 03/31/18 04:50 MCHC 31.7 g/dL (33.0-37.0) L 03/31/18 04:50 RDW 21.5 % (11.5-14.5) H 03/31/18 04:50 Plt Count 409 K/uL (130-400) H 03/31/18 04:50 MPV 7.6 fL (7.2-11.7) 03/31/18 04:50 Neut % (Auto) 82.0 % (50.0-75.0) H 03/31/18 04:50 Lymph % (Auto) 14.9 % (20.0-40.0) L 03/31/18 04:50 Parker % (Auto) 2.1 % (0.0-10.0) 03/31/18 04:50 Eos % (Auto) 0.2 % (0.0-4.0) 03/31/18 04:50 Baso % (Auto) 0.8 % (0.0-2.0) 03/31/18 04:50 Neut # (Auto) 5.3 K/uL (1.8-7.0) 03/31/18 04:50 Lymph # (Auto) 1.0 K/uL (1.0-4.3) 03/31/18 04:50 Parker # (Auto) 0.1 K/uL (0.0-0.8) 03/31/18 04:50 Eos # (Auto) 0.0 K/uL (0.0-0.7) 03/31/18 04:50 Baso # (Auto) 0.1 K/uL (0.0-0.2) 03/31/18 04:50 Sodium 141 mmol/L (132-148) 04/01/18 11:23 Potassium 3.6 mmol/L (3.6-5.2) 04/01/18 11:23 Chloride 103 mmol/L (98-107) 04/01/18 11:23 Carbon Dioxide 27 mmol/L (22-30) 04/01/18 11:23 Anion Gap 14 (10-20) 04/01/18 11:23 BUN 4 mg/dL (9-20) L 04/01/18 11:23 Creatinine 0.5 mg/dL (0.8-1.5) L 04/01/18 11:23 Est GFR ( Amer) > 60 04/01/18 11:23 Est GFR (Non-Af Amer) > 60 04/01/18 11:23 POC Glucose (mg/dL) 158 mg/dL (65-110) H 04/03/18 16:00 Random Glucose 113 mg/dL (75-110) H 04/01/18 11:23 Calcium 8.8 mg/dl (8.6-10.4) 04/01/18 11:23 Total Bilirubin 0.3 mg/dL (0.2-1.3) 03/30/18 19:55 AST 28 U/L (17-59) 03/30/18 19:55 ALT 40 U/L (21-72) 03/30/18 19:55 Alkaline Phosphatase 212 U/L (38-126) H 03/30/18 19:55 Troponin I < 0.0120 ng/mL (0.00-0.120) 03/31/18 07:28 Total Protein 6.9 g/dL (6.3-8.3) 03/30/18 19:55 Albumin 4.1 g/dL (3.5-5.0) 03/30/18 19:55 Globulin 2.8 gm/dL (2.2-3.9) 03/30/18 19:55 Albumin/Globulin Ratio 1.5 (1.0-2.1) 03/30/18 19:55 TSH 3rd Generation 0.68 mIU/L (0.46-4.68) 03/30/18 19:55 Discharge Exam - Head Exam Head Exam: ATRAUMATIC, NORMOCEPHALIC Discharge Plan - Discharge Medications Prescriptions: diltiaZEM [Cardizem] 60 mg PO QID 30 Days tab - Follow Up Plan Condition: STABLE Disposition: HOME/ ROUTINE Instructions: Heart Failure, Adult (DC), Exacerbation of COPD (DC), Diltiazem Additional Instructions: please follow up with Dr. Garcia office in 1 week Please follow up with Dr. Nuno office in 2 weeks Continue medication as per medication reconciliation new prescription given cardizem po qid activity as tolerated call dr garcia or go to the emergency room if symptom return or worsening por favor, siga con la oficina del Dr. Garcia en 1 semana Por favor, carlene un seguimiento con la oficina del Dr. Nuno en 2 semanas Continuar con la medicacin segn la conciliacin de la medicacin nueva prescripcin jesus alberto cardizem po qid actividad yesenia se tolera llamar al Dr. Garcia o ir a la moo de emergencias si el sntoma regresa o empeora Referrals: Hal Garcia MD [Staff Provider] -
== END 2018-04-03 18:10 | disposition home or self-care (01) | DRG 190 ==
LOC: C.ER 19:27 → C.9E 20:51 → C.5S 03-31 08:59 → OBSVTOIN 04-01 16:16
PROVIDERS: ADMIT Internal Medicine; ATTEND Internal Medicine
PROC: 5A09457 Assistance with Respiratory Ventilation, 24-96 Consecutive Hours, Continuous Positive Airway Pressure (ICD-10-PCS; principal; 2018-04-01)
DX: J44.1 Chronic obstructive pulmonary disease with (acute) exacerbation (principal); I26.99 Other pulmonary embolism without acute cor pulmonale; I13.0 Hypertensive heart and chronic kidney disease with heart failure and stage 1 through stage 4 chronic kidney disease, or unspecified chronic kidney disease; R00.0 Tachycardia, unspecified; T48.905A Adverse effect of unspecified agents primarily acting on the respiratory system, initial encounter; E78.00 Pure hypercholesterolemia, unspecified; E86.0 Dehydration; I50.9 Heart failure, unspecified; G47.33 Obstructive sleep apnea (adult) (pediatric); F41.9 Anxiety disorder, unspecified; N18.9 Chronic kidney disease, unspecified; E09.9 Drug or chemical induced diabetes mellitus without complications; Z87.891 Personal history of nicotine dependence; Z93.3 Colostomy status; Z85.038 Personal history of other malignant neoplasm of large intestine

== ENCOUNTER 2018-04-09 10:24 | Inpatient (IN) | payer MEDICARE, BC ==
[2018-04-09 10:34] VITALS: BMI 20.9
[2018-04-09] MEDS ORDERED: Albuterol-Ipratrop 3 mg / 0.5 (3 ml) UD INH STA (11:11)
[2018-04-09] MEDS ORDERED: Azithromycin 500 MG in Sodium Chloride 0.9% 250 ML IVPB STA (11:12)
[2018-04-09 11:26] LABS: BASO # 0.2 K/uL (0.0-0.2); BASO % 1.4 % (0.0-2.0); EOS # 0.6 K/uL (0.0-0.7); EOS % 5.3 % (0.0-4.0); HEMOGLOBIN 9.7 g/dL (12.0-18.0); LYMPH # 2.8 K/uL (1.0-4.3); LYMPH % 24.6 % (20.0-40.0); MEAN CELL VOLUME 69.1 fL (80.0-94.0); MEAN CORPUSCULAR HEMOGLOBIN 21.9 pg (27.0-31.0); MEAN CORPUSCULAR HGB CONC 31.6 g/dL (33.0-37.0); MEAN PLATELET VOLUME 7.7 fL (7.2-11.7); MONO % 8.9 % (0.0-10.0); NEUT # 6.7 K/uL (1.8-7.0); NEUT % 59.8 % (50.0-75.0); RBC 4.46 Mil/uL (4.40-5.90); RED CELL DISTRIBUTION WIDTH 20.3 % (11.5-14.5)
--- NOTE | 2018-04-09 11:28 | C.PDOC ---
History Of Present Illness 68 year old male with a history of COPD presents to the emergency department with complaints of worse symptoms today. He reports cough and shortness of breath. He also reports pain near his stoma, where he has a colostomy bag. Time Seen by Provider: 04/09/18 10:46 Chief Complaint (Nursing): Shortness Of Breath History Per: Patient History/Exam Limitations: no limitations Onset/Duration Of Symptoms: Hrs Current Symptoms Are (Timing): Still Present Associated Symptoms: Other (cough, shortness of breath) Past Medical History Reviewed: Historical Data, Nursing Documentation, Vital Signs Vital Signs: Last Vital Signs Temp 98.4 F 04/09/18 10:32 Pulse 120 H 04/09/18 10:32 Resp 20 04/09/18 10:35 BP 139/74 04/09/18 10:32 Pulse Ox 100 04/09/18 12:43 - Medical History PMH: Anemia, Anxiety, Arthritis, Asthma, Bronchitis, Cardia Arrhythmia (SVT), CHF, COPD, Diabetes, Emphysema, HTN, Hypercholesterolemia, Kidney Stones, Pneumonia, Chronic Kidney Disease, Sleep Apnea (ON DALIRESP) Denies: Fractures, Gastritis Surgical History: Endoscopy - [facility] Procedures ASSISTANCE WITH RESPIRATORY VENTILATION, 24-96 HRS, CPAP (04/01/18) ASSISTANCE WITH RESPIRATORY VENTILATION, <24 HRS, CPAP (11/14/17) ASSISTANCE WITH RESPIRATORY VENTILATION, >96 HRS, CPAP (03/16/18) CONTINUOUS INVASIVE MECHANICAL VENTILATION <96 CONSEC HRS (11/29/14) DILATION OF RIGHT URETER WITH INTRALUMINAL DEVICE, ENDO (03/20/17) DRAINAGE OF BLADDER WITH DRAINAGE DEVICE, VIA OPENING (12/04/17) DRAINAGE OF RECTUM, PERCUTANEOUS APPROACH (12/04/17) EXCISION OF ILEUM, OPEN APPROACH (12/04/17) EXCISION OF SIGMOID COLON, ENDO, DIAGN (03/20/17) EXCISION OF STOMACH, ENDO, DIAGN (03/20/17) EXCISION OF TRANSVERSE COLON, ENDO, DIAGN (03/20/17) INFLUENZA VACCINATION (06/02/14) INSERT ENDOTRACHEAL TUBE (11/29/14) INSERTION OF INFUSION DEV INTO SUP VENA CAVA, PERC APPROACH (01/26/18) INSERTION OF INTRALUM DEV INTO INF VENA CAVA, PERC APPROACH (03/06/18) LARYGNOSCOPY AND OTH TRACHEOSCOPY (04/18/15) MEASURE OF CARDIAC SAMPL & PRESSURE, L HEART, PERC APPROACH (12/01/15) NON-INVASIVE MECHANICAL VENTILATION (04/18/15) RESECTION OF SIGMOID COLON, OPEN APPROACH (03/20/17) RESPIRATORY VENTILATION, GREATER THAN 96 CONSECUTIVE HOURS (03/20/17) Family History: States: No Known Family Hx - Social History Hx Tobacco Use: Yes (8 years ppd smoker. quit 1.5 years ago) Hx Alcohol Use: No Hx Substance Use: No - Immunization History Hx Tetanus Toxoid Vaccination: No Hx Influenza Vaccination: Yes Hx Pneumococcal Vaccination: Yes Review Of Systems Except As Marked, All Systems Reviewed And Found Negative. Respiratory: Positive for: Cough, Shortness of Breath Physical Exam - Physical Exam Appears: Non-toxic, No Acute Distress Skin: Warm, Dry Head: Atraumatic, Normacephalic Eye(s): bilateral: Normal Inspection Neck: Normal, Supple Chest: Symmetrical Cardiovascular: Rhythm Regular, Other (tachycardic) Respiratory: Decreased Breath Sounds (distant breath sounds at bases) Gastrointestinal/Abdominal: Soft, Tenderness (stoma area), No Guarding, No Rebound, Other (colostomy bag present at stoma) Back: Other (back brace present) Extremity: Swelling (+2 bilateral pitting edema) Neurological/Psych: Oriented x3, Normal Speech, Normal Cognition ED Course And Treatment - Laboratory Results Result Diagrams: 04/09/18 11:20 04/09/18 11:20 ECG Rhythm: Sinus Tachycardia Interpretation Of ECG: Sinus tachycardia at 124bpm with PAC. Right axis deviation, non-specific t-wave changes. Rate From EC O2 Sat by Pulse Oximetry: 100 (RA) Pulse Ox Interpretation: Normal Medical Decision Making Medical Decision Making: Assessment: COPD Exacerbation, Stoma Pain Plan: EKG BNP CMP Magnesium TSH Troponin CBC D-Dimer PTT Prothrombin Time CXR Duoneb 3ml INH Rocephin 1gm Solu-Medrol 125mg IVP Zithromax 500mg Blood Culture Urine Culture Discussed with Dr. Garcia 12:40, who agreed to admit the patient to telemetry, consult for Dr. Mai. Disposition Discussed With : Hal Garcia Doctor Will See Patient In The: Hospital Counseled Patient/Family Regarding: Studies Performed, Diagnosis - Disposition Disposition: HOSPITALIZED Disposition Time: 12:42 Condition: FAIR Forms: [employer] ([place]) - Clinical Impression Clinical Impression: COPD (chronic obstructive pulmonary disease), Colostomy complication - Scribe Statement The provider has reviewed the documentation as recorded by the Scribe (Heriberto Edmondson) Provider Attestation: All medical record entries made by the Scribe were at my direction and personally dictated by me. I have reviewed the chart and agree that the record accurately reflects my personal performance of the history, physical exam, medical decision making, and the department course for this patient. I have also personally directed, reviewed, and agree with the discharge instructions and disposition.
[2018-04-09 11:29] LABS: WHITE BLOOD COUNT 11.2 K/uL (4.8-10.8)
[2018-04-09] MEDS ORDERED: cefTRIAXone 1 gm 1 GM/100 ML BAG IVPB ONE (11:30)
[2018-04-09] MEDS ORDERED: Albuterol-Ipratrop 3 mg / 0.5 (3 ml) UD ONE (11:30)
[2018-04-09 11:39] LABS: ALB/GLOB RATIO 1.4 (1.0-2.1); ALT/SGPT 56 U/L (21-72); AST/SGOT 32 U/L (17-59); BLOOD UREA NITROGEN 6 mg/dL (9-20); GFR NON-AFRICAN AMERICAN > 60
[2018-04-09 11:40] LABS: SQUAMOUS EPITHIAL < 1 /hpf (0-5); URINE BACTERIA RARE (<OCC); URINE BILIRUBIN NEGATIVE (NEGATIVE); URINE BLOOD NEGATIVE (NEGATIVE); URINE CLARITY Clear (Clear); URINE COLOR Yellow (YELLOW); URINE GLUCOSE (UA) NORMAL (Normal); URINE HYALINE CAST 0-2 /lpf (0-2); URINE LEUKOCYTE ESTERASE NEG Leu/uL (Negative); URINE PROTEIN NEGATIVE (NEGATIVE); URINE UROBILINOGEN NORMAL mg/dL (0.2-1.0)
[2018-04-09 11:45] LABS: INR 1.1; PROTHROMBIN TIME 12.1 SECONDS (9.7-12.2)
[2018-04-09] MEDS ORDERED: Morphine 4 MG/ML VIAL IV STA (11:48)
[2018-04-09 11:49] LABS: B-TYPE NATRIURETIC PEPTIDE 59.5 pg/mL (0-900)
--- NOTE | 2018-04-09 13:16 | RAD ---
Date of service: 04/09/2018 PROCEDURE: CHEST RADIOGRAPH, 1 VIEW HISTORY: SOB COMPARISON: 03/30/2018 FINDINGS: LUNGS: Clear. PLEURA: No pneumothorax or pleural fluid seen. CARDIOVASCULAR: Normal. OSSEOUS STRUCTURES: No significant abnormalities. VISUALIZED UPPER ABDOMEN: Normal. OTHER FINDINGS: Extrinsic devices (inferred) projecting over upper and lower thorax IMPRESSION: No active disease. No interval pathology noted
--- NOTE | 2018-04-09 15:13 | CP.PCM.CON ---
History of Present Illness - History of Present Illness History of Present Illness: PGY-1 General Surgery consult note for Dr Nieto CC: pain near RLQ stoma HPI: Patient is 68 yo male with PMH of COPD, DM, DVT s/p IVC filter placement and h/o colon cancer sp resection colostomy consulted due to patient noticing his bowels have been coming into the colostomuy bag about a month ago. Patient complains of pain in the stoma area/ring, 6/10. Patient states pain is worst when he gets up and lays down, but pain comes and goes. Patient says he believes the current bag is small and he has never noticed his bowels to be red/ pink inside the colostomy bag. Patient denies fever or chills. Patient admit to pain in the surrounding areas of colostomy bag. PMD: Dr. Garcia PMHX: DM, COPD, emphysema PSHX: resection colostomy, IVC filter placement, cardiac catheterization w/o stent placement ALL: Tylenol (facial rash), fish and shrimp Soc hx: former smoker, denies alcohol, denies illicit drug use Review of Systems - Constitutional Constitutional: absent: Chills, Fever - Gastrointestinal Gastrointestinal: absent: Abdominal Pain, Nausea, Vomiting - Musculoskeletal Musculoskeletal: absent: Joint Swelling, Muscle Weakness Past Patient History - Infectious Disease Hx of Infectious Diseases: None - Past Medical History & Family History Past Medical History?: Yes - Past Social History Smoking Status: Former Smoker - CARDIAC Hx Cardia Arrhythmia: Yes (SVT) Hx Congestive Heart Failure: Yes Hx Hypercholesterolemia: Yes Hx Hypertension: Yes - PULMONARY Hx Asthma: Yes Hx Bronchitis: Yes Hx Chronic Obstructive Pulmonary Disease (COPD): Yes Hx Emphysema: Yes Hx Pneumonia: Yes Hx Sleep Apnea: Yes (ON DALIRESP) - NEUROLOGICAL Hx Neurological Disorder: No HX Cerebrovascular Accident: No - HEENT Hx Cataracts: Yes - RENAL Hx Chronic Kidney Disease: Yes Hx Kidney Stones: Yes - ENDOCRINE/METABOLIC Hx Diabetes Mellitus Type 2: Yes - HEMATOLOGICAL/ONCOLOGICAL Hx Anemia: Yes - INTEGUMENTARY Other/Comment: Scattered ecchymosis on both arms. - MUSCULOSKELETAL/RHEUMATOLOGICAL Hx Arthritis: Yes Hx Fractures: No - GASTROINTESTINAL Hx Gastritis: No - PSYCHIATRIC Hx Anxiety: Yes Hx Substance Use: No - SURGICAL HISTORY Hx Surgeries: Yes Hx Cataract Extraction: Yes (left eye, right eye) Hx Cardiac Catheterization: Yes (11/2015) Hx Eye Surgery: Yes Hx Pulmonary Surgery: Yes Other/Comment: colon resection with right ileostomy - ANESTHESIA Hx Anesthesia: Yes Hx Anesthesia Reactions: No Hx Malignant Hyperthermia: No Meds Allergies/Adverse Reactions: Allergies Allergy/AdvReac Type Severity Reaction Status Date / Time acetaminophen [From Tylenol] Allergy RASH Verified 04/09/18 10:33 FISH Allergy SWELLING Verified 04/09/18 10:33 shrimp Allergy SHORTNESS Verified 04/09/18 10:33 OF BREATH IV dye Allergy Severe ANAPHYLAXIS Uncoded 04/09/18 10:33 Physical Exam - Constitutional Appears: Non-toxic, No Acute Distress - Head Exam Head Exam: ATRAUMATIC, NORMAL INSPECTION - Eye Exam Eye Exam: EOMI, Normal appearance - ENT Exam ENT Exam: Mucous Membranes Moist, Normal Exam - Neck Exam Neck exam: Positive for: Normal Inspection - Respiratory Exam Respiratory Exam: absent: Accessory Muscle Use, Respiratory Distress - GI/Abdominal Exam GI & Abdominal Exam: Soft. absent: Guarding, Rebound, Tenderness Additional comments: RLQ stoma with 7mm colostomy bag placed, bowel protruding from stoma into bag, no erythema in surrounding areas, nontender on palpation - Extremities Exam Extremities exam: Positive for: full ROM, normal inspection - Psychiatric Exam Psychiatric exam: Normal Affect, Normal Mood - Skin Skin Exam: Normal Color, Warm Results - Vital Signs Recent Vital Signs: Last Vital Signs Temp 98.1 F 04/09/18 13:40 Pulse 119 H 04/09/18 13:40 Resp 18 04/09/18 13:40 BP 115/75 04/09/18 13:40 Pulse Ox 98 04/09/18 13:40 - Labs Result Diagrams: 04/09/18 11:20 04/09/18 11:20 Labs: Laboratory Results - last 24 hr 04/09/18 04/09/18 04/09/18 11:20 11:20 11:20 WBC 11.2 H D RBC 4.46 Hgb 9.7 L Hct 30.8 L MCV 69.1 L MCH 21.9 L MCHC 31.6 L RDW 20.3 H Plt Count 415 H MPV 7.7 Neut % (Auto) 59.8 Lymph % (Auto) 24.6 [place] % (Auto) 8.9 Eos % (Auto) 5.3 H Baso % (Auto) 1.4 Neut # (Auto) 6.7 Lymph # (Auto) 2.8 [place] # (Auto) 1.0 H Eos # (Auto) 0.6 Baso # (Auto) 0.2 Differential Comment PT 12.1 INR 1.1 APTT 31 D-Dimer, Quantitative 264 H Sodium 144 Potassium 4.5 Chloride 100 Carbon Dioxide 35 H Anion Gap 14 BUN 6 L Creatinine 0.6 L Est GFR ( Amer) > 60 Est GFR (Non-Af Amer) > 60 Random Glucose 121 H Calcium 10.0 Magnesium 2.0 Total Bilirubin 0.2 AST 32 ALT 56 Alkaline Phosphatase 212 H Troponin I < 0.0120 NT-Pro-B Natriuret Pep 59.5 Total Protein 6.9 Albumin 4.0 Globulin 2.8 Albumin/Globulin Ratio 1.4 TSH 3rd Generation 1.07 Urine Color Urine Clarity Urine pH Ur Specific [place] Urine Protein Urine Glucose (UA) Urine Ketones Urine Blood Urine Nitrate Urine Bilirubin Urine Urobilinogen Ur Leukocyte Esterase Urine WBC (Auto) Urine RBC (Auto) Ur Squamous Epith Cells Urine Bacteria Hyaline Casts 04/09/18 11:28 WBC RBC Hgb Hct MCV MCH MCHC RDW Plt Count MPV Neut % (Auto) Lymph % (Auto) [place] % (Auto) Eos % (Auto) Baso % (Auto) Neut # (Auto) Lymph # (Auto) [place] # (Auto) Eos # (Auto) Baso # (Auto) Differential Comment PT INR APTT D-Dimer, Quantitative Sodium Potassium Chloride Carbon Dioxide Anion Gap BUN Creatinine Est GFR ( Amer) Est GFR (Non-Af Amer) Random Glucose Calcium Magnesium Total Bilirubin AST ALT Alkaline Phosphatase Troponin I NT-Pro-B Natriuret Pep Total Protein Albumin Globulin Albumin/Globulin Ratio TSH 3rd Generation Urine Color Yellow Urine Clarity Clear Urine pH 5.0 Ur Specific [place] 1.016 Urine Protein Negative Urine Glucose (UA) Normal Urine Ketones Negative Urine Blood Negative Urine Nitrate Negative Urine Bilirubin Negative Urine Urobilinogen Normal Ur Leukocyte Esterase Neg Urine WBC (Auto) 4 Urine RBC (Auto) 3 Ur Squamous Epith Cells < 1 Urine Bacteria Rare Hyaline Casts 0-2 Assessment & Plan - Assessment and Plan (Free Text) Assessment: 68 yo male with RLQ colostomy bag with prolapsed stoma Plan: - abdomen and pelvis CT scan with PO Contrast - will follow up results - Medical management as per Dr. Jose - Discussed with Dr Emilia Ballard, PGY-1 - Date & Time Date: 04/09/18 Time: 15:22
--- NOTE | 2018-04-09 15:31 | NM ---
Date of service: 04/09/2018 COMPARISON: Comparison is made with the previous V/Q scan dated 02/12/2018 TECHNIQUE: Twelve mCi technetium 99-m Xe-133 Gas. 3.7 mCI technetium 99-m MAA administered intravenously. FINDINGS: VENTILATION COMPONENT: Heterogeneous distribution of the radiotracer in the ventilation images with multiple foci of decreased in place are accumulation in the lungs bilaterally. These findings have not significantly changed since the previous exam. PERFUSION COMPONENT: Multiple matching defects noted in both lungs. Multiple perfusion defects are again noted. IMPRESSION: Findings have not significantly changed since the previous study. No evidence of new mismatching perfusion defect. Findings again suggestive of low probability for new pulmonary embolus.
[2018-04-09] MEDS: guaiFENesin 100 mg/5 ml Syrup UD PO SCH ×2 (18:01→21:58)
[2018-04-09] MEDS: Albuterol-Ipratrop 3 mg / 0.5 (3 ml) UD INH SCH ×2 (20:20)
[2018-04-09] MEDS: Fluticasone-Salmeterol 250-50mcg Diskus INH SCH ×2 (20:23)
[2018-04-10] MEDS: Albuterol-Ipratrop 3 mg / 0.5 (3 ml) UD INH SCH ×4 (01:18→19:43)
[2018-04-10] MEDS: MethylPREDNISolone 40 mg Vial IVP SCH ×3 (06:18→21:10)
[2018-04-10] MEDS: Fluticasone-Salmeterol 250-50mcg Diskus INH SCH ×2 (07:54→19:43)
--- NOTE | 2018-04-10 08:18 | CT ---
Date of service: 04/09/2018 PROCEDURE: CT Abdomen and Pelvis without intravenous contrast HISTORY: prolapsed ostomy COMPARISON: CT pelvis dated 03/16/2018 TECHNIQUE: Multiple contiguous axial images were performed through the abdomen and pelvis without intravenous contrast. Subsequently, sagittal and coronal reformatted images were obtained. Radiation dose: Total exam DLP = 316 mGy-cm. This CT exam was performed using one or more of the following dose reduction techniques: Automated exposure control, adjustment of the mA and/or kV according to patient size, and/or use of iterative reconstruction technique. FINDINGS: LOWER THORAX: Linear atelectasis and/or fibrosis in the left lower lobe. Trace pericardial effusion. LIVER: Unremarkable. No gross lesion or ductal dilatation. GALLBLADDER AND BILE DUCTS: Cholelithiasis. PANCREAS: Unremarkable. No gross lesion or ductal dilatation. SPLEEN: Unremarkable. ADRENALS: Unremarkable. No mass. KIDNEYS AND URETERS: Punctate nonobstructing calculi in each kidney. VASCULATURE: IVC filter in place. Atherosclerotic disease of the vasculature. BOWEL: Right lower quadrant ileostomy. Some peritoneal fat protruding through the ostomy. Diverticulosis in the colon without evidence of diverticulitis. APPENDIX: Unremarkable. Normal appendix. PERITONEUM: Unremarkable. No free fluid. No free air. LYMPH NODES: Unremarkable. No enlarged lymph nodes. BLADDER: Unremarkable. REPRODUCTIVE: Unremarkable. BONES: Lumbar compression fractures which are of uncertain age. These are most prominent at the L1 and L3 vertebral body levels. OTHER FINDINGS: None. IMPRESSION: Right lower quadrant ileostomy. Some peritoneal fat protruding through the ostomy. Clinical correlation. Diverticulosis. Cholelithiasis. Lumbar compression fractures which are of uncertain age. These are most prominent at the L1 and L3 vertebral body levels. This may be better evaluated with MRI if clinically indicated. These findings were preliminarily reported at 9:23 p.m. on 04/09/[address] Thomas Espinosa from [facility].
[2018-04-10] MEDS: guaiFENesin 100 mg/5 ml Syrup UD PO SCH ×4 (10:03→21:09)
[2018-04-10] MEDS: Multiple Vitamins Tab PO SCH (10:03)
[2018-04-10] MEDS: Pantoprazole 40 mg EC Tab PO SCH (10:03)
[2018-04-10] MEDS: Lidocaine 5% Patch TD SCH (10:04)
--- NOTE | 2018-04-10 11:23 | CP.PCM.PN ---
Subjective - Date & Time of Evaluation Date of Evaluation: 04/10/18 Time of Evaluation: 10:00 - Subjective Subjective: Patient seen and examined. No acute events over night. Reports improvement with abdominal pain. Patient is having BMs. Tolerating diet. Stoma site is nice and pink. Patient complains of pain at stoma with bowel movements. Objective - Vital Signs/Intake and Output Vital Signs (last 24 hours): Temp Pulse Resp BP Pulse Ox 98.0 F 100 H 20 115/71 99 04/10/18 08:00 04/10/18 09:13 04/10/18 08:00 04/10/18 08:00 04/10/18 08:00 Intake and Output: 04/10/18 04/10/18 06:59 18:59 Output Total 850 Balance -850 - Medications Medications: Current Medications Albuterol/Ipratropium (Duoneb 3 Mg/0.5 Mg (3 Ml) Ud) 3 ml INH RQ6 [facility] Last Admin: 04/10/18 07:54 Dose: 3 ml Alprazolam (Xanax) 0.5 mg PO Q12 [facility] Stop: 04/16/18 22:01 Last Admin: 04/10/18 10:04 Dose: 0.5 mg Apixaban (Eliquis) 5 mg PO BID [facility] Last Admin: 04/10/18 10:03 Dose: 5 mg Cyclobenzaprine HCl (Flexeril) 5 mg PO BID [facility] Last Admin: 04/10/18 10:03 Dose: 5 mg Diltiazem HCl (Cardizem) 60 mg PO QID [facility] Last Admin: 04/10/18 10:04 Dose: 60 mg Guaifenesin (Robitussin) 100 mg PO QID [facility] Last Admin: 04/10/18 10:03 Dose: 100 mg Ceftriaxone Sodium 1 gm/ (Sodium Chloride) 100 mls @ 100 mls/hr IVPB DAILY [facility] PRN Reason: Protocol Last Admin: 04/10/18 10:05 Dose: 100 mls/hr Lidocaine (Lidoderm) 2 ea TD DAILY [facility] Last Admin: 04/10/18 10:04 Dose: 2 ea Metformin HCl (Glucophage) 500 mg PO BIDCC [facility] Last Admin: 04/10/18 09:54 Dose: 500 mg Methylprednisolone (Solu-Medrol) 40 mg IVP Q8H [facility] Last Admin: 04/10/18 06:18 Dose: 40 mg Multivitamins (Hexavitamin) 1 tab PO DAILY [facility] Last Admin: 04/10/18 10:03 Dose: 1 tab Pantoprazole Sodium (Protonix Ec Tab) 40 mg PO DAILY [facility] Last Admin: 04/10/18 10:03 Dose: 40 mg Pregabalin (Lyrica) 75 mg PO BID [facility] Last Admin: 04/10/18 10:03 Dose: 75 mg Roflumilast (Daliresp) 500 mcg PO DAILY [facility] Last Admin: 04/10/18 10:03 Dose: 500 mcg Fluticasone/Salmeterol (Advair Diskus 250/50) 1 puff INH RBID [facility] Last Admin: 04/10/18 07:54 Dose: 1 puff - Labs Labs: 04/09/18 11:20 04/09/18 11:20 PT 12.1 SECONDS (9.7-12.2) 04/09/18 11:20 INR 1.1 04/09/18 11:20 APTT 31 SECONDS (21-34) 04/09/18 11:20 - Constitutional Appears: No Acute Distress - Head Exam Head Exam: NORMOCEPHALIC - Eye Exam Eye Exam: Normal appearance - ENT Exam ENT Exam: Mucous Membranes Moist - Cardiovascular Exam Cardiovascular Exam: +S1, +S2 - GI/Abdominal Exam GI & Abdominal Exam: Soft. absent: Firm, Guarding, Rigid, Tenderness - Neurological Exam Neurological Exam: Alert, Awake, Oriented x3 - Psychiatric Exam Psychiatric exam: Normal Mood - Skin Skin Exam: Dry, Intact, Warm Assessment and Plan - Assessment and Plan (Free Text) Assessment: 68M with complaints of pain at stoma site Plan: Patient's stoma site is nice and pink Having BMs Pain resolves after BM Tolerating diet No acute surgical intervention necessary at this present time Further recs per Dr. Emilia Roach PGY3
--- NOTE | 2018-04-10 20:43 | CP.PCM.HP ---
Present on Admission - Present on Admission Any Indicators Present on Admission: No Past Patient History - Infectious Disease Hx of Infectious Diseases: None - Past Medical History & Family History Past Medical History?: Yes - Past Social History Smoking Status: Former Smoker - CARDIAC Hx Congestive Heart Failure: Yes - PULMONARY Hx Chronic Obstructive Pulmonary Disease (COPD): Yes - NEUROLOGICAL Hx Neurological Disorder: No HX Cerebrovascular Accident: No - HEENT Hx Cataracts: Yes - RENAL Hx Chronic Kidney Disease: Yes Hx Kidney Stones: Yes - ENDOCRINE/METABOLIC Hx Diabetes Mellitus Type 2: Yes - HEMATOLOGICAL/ONCOLOGICAL Hx Anemia: Yes - INTEGUMENTARY Other/Comment: Scattered ecchymosis on both arms. - MUSCULOSKELETAL/RHEUMATOLOGICAL Hx Arthritis: Yes - GASTROINTESTINAL Hx Gastritis: No - PSYCHIATRIC Hx Anxiety: Yes Hx Substance Use: No - SURGICAL HISTORY Hx Surgeries: Yes Hx Cataract Extraction: Yes (left eye, right eye) Hx Cardiac Catheterization: Yes (11/2015) Hx Eye Surgery: Yes Hx Pulmonary Surgery: Yes Other/Comment: colon resection with right ileostomy - ANESTHESIA Hx Anesthesia: Yes Hx Anesthesia Reactions: No Hx Malignant Hyperthermia: No Meds Home Medications: Home Medication List Medication Instructions Recorded Confirmed Type Albuterol HFA [Ventolin HFA 90 0.09 mg IH Q6 #2 puff 04/12/18 Rx mcg/actuation (8 g)] oxyCODONE/Acetaminophen [Percocet 1 tab PO Q6H #20 tab 04/12/18 Rx 5/325 mg Tab] Allergies/Adverse Reactions: Allergies Allergy/AdvReac Type Severity Reaction Status Date / Time acetaminophen [From Tylenol] Allergy RASH Verified 04/09/18 10:33 FISH Allergy SWELLING Verified 04/09/18 10:33 shrimp Allergy SHORTNESS Verified 04/09/18 10:33 OF BREATH IV dye Allergy Severe ANAPHYLAXIS Uncoded 04/09/18 10:33 Results - Vital Signs Recent Vital Signs: Last Vital Signs Temp 98.1 F 04/10/18 16:00 Pulse 120 H 04/10/18 16:00 Resp 22 04/10/18 16:00 BP 122/69 04/10/18 16:00 Pulse Ox 94 L 04/10/18 16:00 - Labs Result Diagrams: 04/11/18 08:03 04/11/18 08:03 Labs: Laboratory Results - last 24 hr 04/09/18 04/10/18 21:38 15:44 POC Glucose (mg/dL) 202 H 233 H
--- NOTE | 2018-04-10 23:59 | CARD ---
APPROVED REPORT Date of service: 04/09/2018 EKG Measurement Heart [id number] <Conclusion> Sinus tachycardia with premature atrial complexes Rightward axis Borderline ECG
--- NOTE | 2018-04-10 23:59 | CARD ---
APPROVED REPORT Date of service: 04/09/2018 EKG Measurement Heart [id number] <Conclusion> Sinus tachycardia with premature atrial complexes Otherwise normal ECG
[2018-04-11] MEDS: Albuterol-Ipratrop 3 mg / 0.5 (3 ml) UD INH SCH ×4 (01:12→21:11)
[2018-04-11] MEDS: MethylPREDNISolone 40 mg Vial IVP SCH ×3 (05:56→21:32)
[2018-04-11] MEDS: Fluticasone-Salmeterol 250-50mcg Diskus INH SCH ×2 (07:29→21:11)
[2018-04-11 08:12] LABS: BASO % 0.1 % (0.0-2.0); HEMOGLOBIN 9.3 g/dL (12.0-18.0); LYMPH # 0.7 K/uL (1.0-4.3); LYMPH % 6.6 % (20.0-40.0); MEAN CELL VOLUME 68.8 fL (80.0-94.0); MEAN CORPUSCULAR HEMOGLOBIN 22.4 pg (27.0-31.0); MEAN CORPUSCULAR HGB CONC 32.6 g/dL (33.0-37.0); MONO # 0.4 K/uL (0.0-0.8); NEUT # 9.4 K/uL (1.8-7.0); NEUT % 89.3 % (50.0-75.0); PLATELET COUNT 367 K/uL (130-400); RBC 4.16 Mil/uL (4.40-5.90); RED CELL DISTRIBUTION WIDTH 20.3 % (11.5-14.5); WHITE BLOOD COUNT 10.5 K/uL (4.8-10.8)
[2018-04-11 08:59] LABS: ALB/GLOB RATIO 1.4 (1.0-2.1); ALBUMIN 3.7 g/dL (3.5-5.0); ALT/SGPT 37 U/L (21-72); AST/SGOT 16 U/L (17-59); BLOOD UREA NITROGEN 12 mg/dL (9-20); CALCIUM 9.7 mg/dl (8.6-10.4); GFR NON-AFRICAN AMERICAN > 60
[2018-04-11 09:04] LABS: ANISOCYTOSIS SLIGHT; HYPOCHROMIC SLIGHT; LYMPHOCYTE 6 % (20-40); MONOCYTE 4 % (0-10); MYELOCYTE 1 % (0-0); NEUTROPHIL 89 % (50-75); PLATELET ESTIMATE NORMAL (NORMAL); TOTAL CELLS COUNTED 100
[2018-04-11 09:05] LABS: TARGET CELLS SLIGHT
[2018-04-11 09:06] LABS: TEARDROP CELLS SLIGHT
[2018-04-11 09:07] LABS: MICROCYTOSIS SLIGHT; OVALOCYTES MODERATE; POIKILOCYTOSIS MODERATE; POLYCHROMIC SLIGHT
[2018-04-11] MEDS: Multiple Vitamins Tab PO SCH (09:57)
[2018-04-11] MEDS: Pantoprazole 40 mg EC Tab PO SCH (09:58)
[2018-04-11] MEDS: guaiFENesin 100 mg/5 ml Syrup UD PO SCH ×4 (09:58→21:32)
[2018-04-11] MEDS: Lidocaine 5% Patch TD SCH (10:02)
--- NOTE | 2018-04-11 10:52 | CP.PCM.CON ---
Past Patient History - Infectious Disease Hx of Infectious Diseases: None - Past Medical History & Family History Past Medical History?: Yes - Past Social History Smoking Status: Former Smoker - CARDIAC Hx Congestive Heart Failure: Yes - PULMONARY Hx Chronic Obstructive Pulmonary Disease (COPD): Yes - NEUROLOGICAL Hx Neurological Disorder: No HX Cerebrovascular Accident: No - HEENT Hx Cataracts: Yes - RENAL Hx Chronic Kidney Disease: Yes Hx Kidney Stones: Yes - ENDOCRINE/METABOLIC Hx Diabetes Mellitus Type 2: Yes - HEMATOLOGICAL/ONCOLOGICAL Hx Anemia: Yes - INTEGUMENTARY Other/Comment: Scattered ecchymosis on both arms. - MUSCULOSKELETAL/RHEUMATOLOGICAL Hx Arthritis: Yes - GASTROINTESTINAL Hx Gastritis: No - PSYCHIATRIC Hx Anxiety: Yes Hx Substance Use: No - SURGICAL HISTORY Hx Surgeries: Yes Hx Cataract Extraction: Yes (left eye, right eye) Hx Cardiac Catheterization: Yes (11/2015) Hx Eye Surgery: Yes Hx Pulmonary Surgery: Yes Other/Comment: colon resection with right ileostomy - ANESTHESIA Hx Anesthesia: Yes Hx Anesthesia Reactions: No Hx Malignant Hyperthermia: No Meds Allergies/Adverse Reactions: Allergies Allergy/AdvReac Type Severity Reaction Status Date / Time acetaminophen [From Tylenol] Allergy RASH Verified 04/09/18 10:33 FISH Allergy SWELLING Verified 04/09/18 10:33 shrimp Allergy SHORTNESS Verified 04/09/18 10:33 OF BREATH IV dye Allergy Severe ANAPHYLAXIS Uncoded 04/09/18 10:33 - Medications Medications: Current Medications Albuterol/Ipratropium (Duoneb 3 Mg/0.5 Mg (3 Ml) Ud) 3 ml INH RQ6 [facility] Last Admin: 04/11/18 07:10 Dose: 3 ml Alprazolam (Xanax) 0.5 mg PO Q12 [facility] Stop: 04/16/18 22:01 Last Admin: 04/11/18 09:57 Dose: 0.5 mg Apixaban (Eliquis) 5 mg PO BID [facility] Last Admin: 04/11/18 09:57 Dose: 5 mg Cyclobenzaprine HCl (Flexeril) 5 mg PO BID [facility] Last Admin: 04/11/18 09:57 Dose: 5 mg Diltiazem HCl (Cardizem) 60 mg PO QID [facility] Last Admin: 04/11/18 09:57 Dose: 60 mg Guaifenesin (Robitussin) 100 mg PO QID [facility] Last Admin: 04/11/18 09:58 Dose: 100 mg Ceftriaxone Sodium 1 gm/ (Sodium Chloride) 100 mls @ 100 mls/hr IVPB DAILY [facility] PRN Reason: Protocol Last Admin: 04/11/18 09:58 Dose: 100 mls/hr Lidocaine (Lidoderm) 2 ea TD DAILY [facility] Last Admin: 04/11/18 10:02 Dose: Not Given Metformin HCl (Glucophage) 500 mg PO BIDCC [facility] Last Admin: 04/11/18 08:48 Dose: 500 mg Methylprednisolone (Solu-Medrol) 40 mg IVP Q12 [facility] Last Admin: 04/11/18 09:58 Dose: 40 mg Morphine Sulfate (Morphine) 2 mg IVP Q6H PRN PRN Reason: Pain, moderate (4-7) Last Admin: 04/11/18 05:56 Dose: 2 mg Multivitamins (Hexavitamin) 1 tab PO DAILY [facility] Last Admin: 04/11/18 09:57 Dose: 1 tab Pantoprazole Sodium (Protonix Ec Tab) 40 mg PO DAILY [facility] Last Admin: 04/11/18 09:58 Dose: 40 mg Pregabalin (Lyrica) 75 mg PO BID [facility] Last Admin: 04/11/18 09:57 Dose: 75 mg Roflumilast (Daliresp) 500 mcg PO DAILY [facility] Last Admin: 04/11/18 09:57 Dose: 500 mcg Fluticasone/Salmeterol (Advair Diskus 250/50) 1 puff INH RBID [facility] Last Admin: 04/10/18 19:43 Dose: 1 puff Results - Vital Signs Recent Vital Signs: Last Vital Signs Temp 97.6 F 04/11/18 07:00 Pulse 100 H 04/11/18 07:11 Resp 15 04/11/18 07:00 BP 116/74 04/11/18 07:00 Pulse Ox 97 04/11/18 07:00 - Labs Result Diagrams: 04/11/18 08:03 04/11/18 08:03 Labs: Laboratory Results - last 24 hr 04/10/18 04/10/18 04/11/18 15:44 21:22 06:16 WBC RBC Hgb Hct MCV MCH MCHC RDW Plt Count MPV Neut % (Auto) Lymph % (Auto) [place] % (Auto) Eos % (Auto) Baso % (Auto) Neut # (Auto) Lymph # (Auto) [place] # (Auto) Eos # (Auto) Baso # (Auto) Neutrophils % (Manual) Lymphocytes % (Manual) Monocytes % (Manual) Myelocytes % Platelet Estimate Polychromasia Hypochromasia (manual) Poikilocytosis (manual Anisocytosis (manual) Microcytosis (manual) Target Cells Tear Drop Cells Ovalocytes Sodium Potassium Chloride Carbon Dioxide Anion Gap BUN Creatinine Est GFR ( Amer) Est GFR (Non-Af Amer) POC Glucose (mg/dL) 233 H 218 H 197 H Random Glucose Calcium Total Bilirubin AST ALT Alkaline Phosphatase Total Protein Albumin Globulin Albumin/Globulin Ratio 04/11/18 04/11/18 08:03 08:03 WBC 10.5 RBC 4.16 L Hgb 9.3 L Hct 28.6 L MCV 68.8 L MCH 22.4 L MCHC 32.6 L RDW 20.3 H Plt Count 367 MPV 8.0 Neut % (Auto) 89.3 H Lymph % (Auto) 6.6 L [place] % (Auto) 4.0 Eos % (Auto) 0.0 Baso % (Auto) 0.1 Neut # (Auto) 9.4 H Lymph # (Auto) 0.7 L [place] # (Auto) 0.4 Eos # (Auto) 0.0 Baso # (Auto) 0.0 Neutrophils % (Manual) 89 H Lymphocytes % (Manual) 6 L Monocytes % (Manual) 4 Myelocytes % 1 H Platelet Estimate Normal Polychromasia Slight Hypochromasia (manual) Slight Poikilocytosis (manual Moderate Anisocytosis (manual) Slight Microcytosis (manual) Slight Target Cells Slight Tear Drop Cells Slight Ovalocytes Moderate Sodium 141 Potassium 4.6 Chloride 100 Carbon Dioxide 29 Anion Gap 16 BUN 12 Creatinine 0.5 L Est GFR ( Amer) > 60 Est GFR (Non-Af Amer) > 60 POC Glucose (mg/dL) Random Glucose 197 H Calcium 9.7 Total Bilirubin 0.2 AST 16 L D ALT 37 Alkaline Phosphatase 149 H D Total Protein 6.4 Albumin 3.7 Globulin 2.7 Albumin/Globulin Ratio 1.4
--- NOTE | 2018-04-11 11:32 | PN ---
Copied To: Hal Garcia MD Attending MD: Hal Garcia MD DATE: 04/10/2018 CHIEF COMPLAINT: Shortness of breath. HISTORY OF PRESENT ILLNESS: This is a 67-year-old male well known to me with history of severe chronic obstructive pulmonary disease, ex-smoker with history of steroid-induced diabetes, history of allergic rhinitis, anxiety, and depression. The patient has residual colostomy from a prior stage I colon cancer which was resected, and the patient is in remission of his colon cancer. the patient is home bound. He has history of frequent hospitalization, and he is dependent on his family members for activities of daily living, compliant with diet and medication. He has home oxygen, home BiPAP, and home nebulizer therapy; and the patient on the day of admission developed acute severe shortness of breath, cough, congestion, wheezing, nasal congestion, polyuria, chest tightness. No fever. No chills, and he attempted to treat himself with nebulizer, oxygen BiPAP with no response; 911 was called in, and the patient was transported to emergency room and he was hospitalized. The patient is also having a lot of pain at the site of his colostomy bag and stoma. He denies any dizziness or vertigo. He has cough and congestion. PAST MEDICAL HISTORY: Anxiety; allergic rhinitis; colon cancer, stage I in remission; steroid-induced diabetes; COPD. He has pulmonary embolism, and he is on Eliquis. SOCIAL HISTORY: Ex-smoker. Non-ETOH user. PAST SURGICAL HISTORY: Status post colon resection. CURRENT MEDICATIONS: He is on Brovana, Daliresp, metformin, Eliquis for pulmonary embolism, Lyrica, Protonix, multivitamin, Lidoderm patch, Advair Diskus, Flexeril, Pulmicort, Pepto-Bismol, Ventolin, Xanax, Robitussin, metformin, prednisone. PHYSICAL EXAMINATION: GENERAL: An elderly male in mild respiratory distress. VITAL SIGNS: Blood pressure 122/69, pulse 120, respiratory rate 22, temperature 98.1. SKIN: The patient has bruises, paper-thin skin. HEENT: Atraumatic, normocephalic. Negative pallor. Negative jaundice. Extraocular movements are intact. NECK: Supple. Using accessory muscle. No JVD. No lymph node. No thyromegaly. No carotid bruit. CHEST: Chest wall, barrel chest with no gynecomastia. No other deformity. LUNGS: Bilateral expiratory rhonchi and inspiratory rhonchi. Decreased air entry. CARDIOVASCULAR: S1 and S2, tachycardic. ABDOMEN: Soft and nontender. Bowel sounds are positive. Colostomy site is clean. No active bleeding and has a colostomy bag. RECTAL: Enlarged prostate. GENITAL: Normal. EXTREMITIES: No clubbing, cyanosis, or edema. Peripheral pulses are intact. CENTRAL NERVOUS SYSTEM: Awake, alert, and oriented x3. Cranial nerves II through XII are normal. Power 5/5 x4. Plantars are downgoing. ASSESSMENT: 1. Acute exacerbation of chronic obstructive pulmonary disease. There is no precipitating factor. There is no infection. The patient is compliant. 2. Pulmonary embolism. 3. Colon cancer. 4. Allergic rhinitis. PLAN: Admit. Detailed orders written. Seen and examined. Hal Garcia MD
[2018-04-11] MEDS ORDERED: Sodium Chloride 0.9% 1,000 ML IV ONE (12:23)
--- NOTE | 2018-04-11 12:38 | CP.PCM.PN ---
Subjective - Date & Time of Evaluation Date of Evaluation: 04/11/18 Time of Evaluation: 07:00 - Subjective Subjective: General surgery progress note for Dr. Nieto Patient seen and examined at bedside. He reports pain at stoma site with bowel movements. He is having normal bowel function. Objective - Vital Signs/Intake and Output Vital Signs (last 24 hours): Temp Pulse Resp BP Pulse Ox 97.6 F 100 H 15 116/74 97 04/11/18 07:00 04/11/18 07:11 04/11/18 07:00 04/11/18 07:00 04/11/18 07:00 - Medications Medications: Current Medications Albuterol/Ipratropium (Duoneb 3 Mg/0.5 Mg (3 Ml) Ud) 3 ml INH RQ6 [facility] Last Admin: 04/11/18 07:10 Dose: 3 ml Alprazolam (Xanax) 0.5 mg PO Q12 [facility] Stop: 04/16/18 22:01 Last Admin: 04/11/18 09:57 Dose: 0.5 mg Apixaban (Eliquis) 5 mg PO BID [facility] Last Admin: 04/11/18 09:57 Dose: 5 mg Cyclobenzaprine HCl (Flexeril) 5 mg PO BID [facility] Last Admin: 04/11/18 09:57 Dose: 5 mg Diltiazem HCl (Cardizem) 60 mg PO QID [facility] Last Admin: 04/11/18 09:57 Dose: 60 mg Guaifenesin (Robitussin) 100 mg PO QID [facility] Last Admin: 04/11/18 09:58 Dose: 100 mg Ceftriaxone Sodium 1 gm/ (Sodium Chloride) 100 mls @ 100 mls/hr IVPB DAILY [facility] PRN Reason: Protocol Last Admin: 04/11/18 09:58 Dose: 100 mls/hr Sodium Chloride (Sodium Chloride 0.9%) 1,000 mls @ 100 mls/hr IV .Q10H [facility] Stop: 04/11/18 22:22 Lidocaine (Lidoderm) 2 ea TD DAILY [facility] Last Admin: 04/11/18 10:02 Dose: Not Given Metformin HCl (Glucophage) 500 mg PO BIDCC [facility] Last Admin: 04/11/18 08:48 Dose: 500 mg Methylprednisolone (Solu-Medrol) 40 mg IVP Q12 [facility] Last Admin: 04/11/18 09:58 Dose: 40 mg Morphine Sulfate (Morphine) 2 mg IVP Q6H PRN PRN Reason: Pain, moderate (4-7) Last Admin: 04/11/18 05:56 Dose: 2 mg Multivitamins (Hexavitamin) 1 tab PO DAILY [facility] Last Admin: 04/11/18 09:57 Dose: 1 tab Pantoprazole Sodium (Protonix Ec Tab) 40 mg PO DAILY [facility] Last Admin: 04/11/18 09:58 Dose: 40 mg Pregabalin (Lyrica) 75 mg PO BID [facility] Last Admin: 04/11/18 09:57 Dose: 75 mg Roflumilast (Daliresp) 500 mcg PO DAILY [facility] Last Admin: 04/11/18 09:57 Dose: 500 mcg Fluticasone/Salmeterol (Advair Diskus 250/50) 1 puff INH RBID [facility] Last Admin: 04/10/18 19:43 Dose: 1 puff - Labs Labs: 04/11/18 08:03 04/11/18 08:03 PT 12.1 SECONDS (9.7-12.2) 04/09/18 11:20 INR 1.1 04/09/18 11:20 APTT 31 SECONDS (21-34) 04/09/18 11:20 - Constitutional Appears: Non-toxic, No Acute Distress - Head Exam Head Exam: ATRAUMATIC, NORMAL INSPECTION - Eye Exam Eye Exam: EOMI, Normal appearance - Respiratory Exam Respiratory Exam: NORMAL BREATHING PATTERN. absent: Respiratory Distress - Cardiovascular Exam Cardiovascular Exam: +S1, +S2 - GI/Abdominal Exam GI & Abdominal Exam: Soft. absent: Distended, Firm, Guarding, Rigid, Tenderness Assessment and Plan - Assessment and Plan (Free Text) Assessment: 68yo M with pain at stoma site - Stoma is pink and patent - Having normal bowel function, pain resolves after BM - Tolerating diet - CT reviewed - No surgical intervention necessary at this time - Discussed plan with Dr. Emilia Steven PGY-4
--- NOTE | 2018-04-11 16:37 | CP.PCM.PN ---
Subjective - Date & Time of Evaluation Date of Evaluation: 04/11/18 Time of Evaluation: 16:37 Objective - Vital Signs/Intake and Output Vital Signs (last 24 hours): Temp Pulse Resp BP Pulse Ox 97.8 F 134 H 18 120/69 96 04/11/18 15:00 04/11/18 16:04 04/11/18 15:00 04/11/18 15:00 04/11/18 15:00 - Medications Medications: Current Medications Albuterol/Ipratropium (Duoneb 3 Mg/0.5 Mg (3 Ml) Ud) 3 ml INH RQ6 [facility] Last Admin: 04/11/18 13:28 Dose: 3 ml Alprazolam (Xanax) 0.5 mg PO Q12 [facility] Stop: 04/16/18 22:01 Last Admin: 04/11/18 09:57 Dose: 0.5 mg Apixaban (Eliquis) 5 mg PO BID [facility] Last Admin: 04/11/18 09:57 Dose: 5 mg Cyclobenzaprine HCl (Flexeril) 5 mg PO BID [facility] Last Admin: 04/11/18 09:57 Dose: 5 mg Diltiazem HCl (Cardizem) 60 mg PO QID [facility] Last Admin: 04/11/18 14:12 Dose: 60 mg Guaifenesin (Robitussin) 100 mg PO QID [facility] Last Admin: 04/11/18 14:12 Dose: 100 mg Ceftriaxone Sodium 1 gm/ (Sodium Chloride) 100 mls @ 100 mls/hr IVPB DAILY [facility] PRN Reason: Protocol Last Admin: 04/11/18 09:58 Dose: 100 mls/hr Sodium Chloride (Sodium Chloride 0.9%) 1,000 mls @ 100 mls/hr IV .Q10H [facility] Stop: 04/11/18 22:22 Last Admin: 04/11/18 13:36 Dose: 100 mls/hr Lidocaine (Lidoderm) 2 ea TD DAILY [facility] Last Admin: 04/11/18 10:02 Dose: Not Given Metformin HCl (Glucophage) 500 mg PO BIDCC [facility] Last Admin: 04/11/18 08:48 Dose: 500 mg Methylprednisolone (Solu-Medrol) 40 mg IVP Q12 [facility] Last Admin: 04/11/18 09:58 Dose: 40 mg Morphine Sulfate (Morphine) 2 mg IVP Q6H PRN PRN Reason: Pain, moderate (4-7) Last Admin: 04/11/18 13:36 Dose: 2 mg Multivitamins (Hexavitamin) 1 tab PO DAILY [facility] Last Admin: 04/11/18 09:57 Dose: 1 tab Pantoprazole Sodium (Protonix Ec Tab) 40 mg PO DAILY [facility] Last Admin: 04/11/18 09:58 Dose: 40 mg Pregabalin (Lyrica) 75 mg PO BID [facility] Last Admin: 04/11/18 09:57 Dose: 75 mg Roflumilast (Daliresp) 500 mcg PO DAILY [facility] Last Admin: 04/11/18 09:57 Dose: 500 mcg Fluticasone/Salmeterol (Advair Diskus 250/50) 1 puff INH RBID [facility] Last Admin: 04/11/18 07:29 Dose: Not Given - Labs Labs: 04/11/18 08:03 04/11/18 08:03 PT 12.1 SECONDS (9.7-12.2) 04/09/18 11:20 INR 1.1 04/09/18 11:20 APTT 31 SECONDS (21-34) 04/09/18 11:20 Assessment and Plan - Assessment and Plan (Free Text) Assessment: FOLLOW UP WITH DR ZHANG AT HIS OFFICE IN 1-3 WEEK ---CALL FOR APPOINTMENT CONTINUE ALL HOME MEDICATION ACTIVITY TOLERATED COLOSTOMY CARE INSTRUCTED/ wafer supply provided to patient CALL DR ZHANG OR GO TO THE EMERGENCY ROOM IF SYMPTOMS RETURN OR WORSENING
--- NOTE | 2018-04-11 20:58 | PN ---
Copied To: Fernanda Hylton MD Attending MD: Fernanda Hylton MD DATE: 04/11/2018 SUBJECTIVE: Discussed with the patient's family and . The problem that the patient has is he has no ileostomy in left lower quadrant. Initially, he has a low anterior resection with protective ileostomy. Number of months later when the ileostomy was closed, it failed to heal. 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 This has prolapsed a little bit and is hanging outside. Nonetheless, the functioning ileostomy has no signs of otherwise a systemic sepsis. I discussed with the patient and his our options. One, I do not think anything should be done to the ileostomy, primarily because it would not resolve this problem. I think the most important thing to do will be to close his ileostomy, but I think that given the fact that he is on steroids for his lungs and his general and medical conditions for this would be very risky. More importantly, if it did not heal the first time, it is unlikely to heal again this time. Nonetheless, I said when he is at a better condition, we will discuss the options. Concurrently, he was seen by the wound care nurse and a new type of colostomy drainage bag was done and told them perhaps will make it easier for him to deal with this. The problems and the risks were reviewed. Family is aware. They had no additional questions. Fernanda Hylton MD
[2018-04-12] MEDS: Albuterol-Ipratrop 3 mg / 0.5 (3 ml) UD INH SCH ×3 (01:00→14:36)
[2018-04-12] MEDS: Fluticasone-Salmeterol 250-50mcg Diskus INH SCH (07:52)
[2018-04-12 07:58] VITALS: BP 126/72; RESP 20; TEMP 97.3; O2SAT 96
[2018-04-12 08:26] VITALS: PULSE 80
[2018-04-12] MEDS: Lidocaine 5% Patch TD SCH (09:58)
[2018-04-12] MEDS: MethylPREDNISolone 40 mg Vial IVP SCH (09:58)
[2018-04-12] MEDS: Multiple Vitamins Tab PO SCH (09:58)
[2018-04-12] MEDS: guaiFENesin 100 mg/5 ml Syrup UD PO SCH ×3 (09:58→17:02)
[2018-04-12] MEDS: Pantoprazole 40 mg EC Tab PO SCH (09:58)
--- NOTE | 2018-04-12 16:14 | CP.PCM.PN ---
Subjective - Date & Time of Evaluation Date of Evaluation: 04/12/18 Time of Evaluation: 10:30 - Subjective Subjective: Patient seen and examined Denies shortness of breath, denies cough, denies fever or chills Patient seen by surgery Objective - Vital Signs/Intake and Output Vital Signs (last 24 hours): Temp Pulse Resp BP Pulse Ox 97.3 F L 80 20 126/72 96 04/12/18 07:00 04/12/18 08:00 04/12/18 07:00 04/12/18 07:00 04/12/18 07:00 Intake and Output: 04/12/18 04/12/18 06:59 18:59 Output Total 1200 Balance -1200 - Medications Medications: Current Medications Albuterol/Ipratropium (Duoneb 3 Mg/0.5 Mg (3 Ml) Ud) 3 ml INH RQ6 [facility] Last Admin: 04/12/18 14:36 Dose: 3 ml Alprazolam (Xanax) 0.5 mg PO Q12 [facility] Stop: 04/16/18 22:01 Last Admin: 04/12/18 09:58 Dose: 0.5 mg Apixaban (Eliquis) 5 mg PO BID [facility] Last Admin: 04/12/18 09:58 Dose: 5 mg Cyclobenzaprine HCl (Flexeril) 5 mg PO BID [facility] Last Admin: 04/12/18 09:58 Dose: 5 mg Diltiazem HCl (Cardizem) 60 mg PO QID [facility] Last Admin: 04/12/18 13:26 Dose: 60 mg Guaifenesin (Robitussin) 100 mg PO QID [facility] Last Admin: 04/12/18 13:26 Dose: 100 mg Ceftriaxone Sodium 1 gm/ (Sodium Chloride) 100 mls @ 100 mls/hr IVPB DAILY [facility] PRN Reason: Protocol Last Admin: 04/12/18 10:00 Dose: 100 mls/hr Lidocaine (Lidoderm) 2 ea TD DAILY [facility] Last Admin: 04/12/18 09:58 Dose: 2 ea Metformin HCl (Glucophage) 500 mg PO BIDCC [facility] Last Admin: 04/12/18 09:58 Dose: 500 mg Methylprednisolone (Solu-Medrol) 40 mg IVP Q12 [facility] Last Admin: 04/12/18 09:58 Dose: 40 mg Morphine Sulfate (Morphine) 2 mg IVP Q6H PRN PRN Reason: Pain, moderate (4-7) Last Admin: 04/12/18 13:32 Dose: 2 mg Multivitamins (Hexavitamin) 1 tab PO DAILY [facility] Last Admin: 04/12/18 09:58 Dose: 1 tab Pantoprazole Sodium (Protonix Ec Tab) 40 mg PO DAILY [facility] Last Admin: 04/12/18 09:58 Dose: 40 mg Pregabalin (Lyrica) 75 mg PO BID [facility] Last Admin: 04/12/18 09:58 Dose: 75 mg Roflumilast (Daliresp) 500 mcg PO DAILY [facility] Last Admin: 04/12/18 09:58 Dose: 500 mcg Fluticasone/Salmeterol (Advair Diskus 250/50) 1 puff INH RBID [facility] Last Admin: 04/12/18 07:52 Dose: 1 puff - Labs Labs: 04/11/18 08:03 04/11/18 08:03 PT 12.1 SECONDS (9.7-12.2) 04/09/18 11:20 INR 1.1 04/09/18 11:20 APTT 31 SECONDS (21-34) 04/09/18 11:20 - Head Exam Head Exam: ATRAUMATIC, NORMOCEPHALIC - ENT Exam ENT Exam: Mucous Membranes Moist - Neck Exam Neck Exam: Normal Inspection - Respiratory Exam Respiratory Exam: Decreased Breath Sounds - Cardiovascular Exam Cardiovascular Exam: REGULAR RHYTHM Assessment and Plan (1) COPD (chronic obstructive pulmonary disease) Assessment & Plan: nebulizer treatment, steroids, BiPAP as needed Status: Acute
--- NOTE | 2018-04-13 15:50 | DS ---
Copied To: Hal Garcia MD Attending MD: Hal Garcia MD ADMISSION DIAGNOSIS: Shortness of breath. DISCHARGE DIAGNOSES: Acute excerebration of chronic obstructive pulmonary disease, steroid-induced diabetes, allergic rhinitis, anxiety, and colostomy with colostomy problem. HOSPITAL COURSE: This is a 68-year-old male well know to me with a history of steroid-induced diabetes, allergic rhinitis, anxiety, postherpetic neuralgia on the right flank side with colostomy, who was admitted with shortness of breath, cough, congestion, wheezing, which started acutely and the patient was treated, stabilized, and was given Solu-Medrol, oxygen, nebulizer treatment in the hospital. He did well. He has been discharged with outpatient followup. Condition upon discharge is stable. The patient is on home oxygen therapy. He has nebulizer. He has oxygen at home. He is feeling well. He is stable. The patient is not a candidate for rehab. He has been stable. LABORATORY DATA: WBC 11.2, hemoglobin 9.7, hematocrit 30.8, platelets 450. Sodium 141, potassium 4.6, chloride 100, bicarb 29, BUN 12, creatinine . CONDITION UPON DISCHARGE: Stable. Hal Garcia MD
== END 2018-04-12 17:19 | disposition home or self-care (01) | DRG 191 ==
LOC: C.ER 10:24 → C.9E 12:41 → C.5S 13:04
PROVIDERS: ADMIT Internal Medicine; ATTEND Internal Medicine
DX: J44.1 Chronic obstructive pulmonary disease with (acute) exacerbation (principal); I13.0 Hypertensive heart and chronic kidney disease with heart failure and stage 1 through stage 4 chronic kidney disease, or unspecified chronic kidney disease; K63.2 Fistula of intestine; K94.09 Other complications of colostomy; Z99.81 Dependence on supplemental oxygen; I50.9 Heart failure, unspecified; N18.9 Chronic kidney disease, unspecified; Z85.038 Personal history of other malignant neoplasm of large intestine; Z86.711 Personal history of pulmonary embolism; Z87.01 Personal history of pneumonia (recurrent); Z87.442 Personal history of urinary calculi; Z87.891 Personal history of nicotine dependence; Z90.49 Acquired absence of other specified parts of digestive tract; Z79.01 Long term (current) use of anticoagulants; F41.9 Anxiety disorder, unspecified; G47.30 Sleep apnea, unspecified; Y83.3 Surgical operation with formation of external stoma as the cause of abnormal reaction of the patient, or of later complication, without mention of misadventure at the time of the procedure; E09.9 Drug or chemical induced diabetes mellitus without complications; T38.0X5A Adverse effect of glucocorticoids and synthetic analogues, initial encounter

== ENCOUNTER 2018-04-25 17:18 | Inpatient (IN) | payer MEDICARE, BC ==
[2018-04-25 17:39] VITALS: BMI 22.8
[2018-04-25] MEDS ORDERED: Albuterol-Ipratrop 3 mg / 0.5 (3 ml) UD INH STA (18:14)
[2018-04-25 18:29] LABS: BASO # 0.1 K/uL (0.0-0.2); BASO % 0.9 % (0.0-2.0); EOS # 0.1 K/uL (0.0-0.7); EOS % 0.6 % (0.0-4.0); HEMOGLOBIN 10.2 g/dL (12.0-18.0); LYMPH % 10.5 % (20.0-40.0); MEAN CELL VOLUME 70.4 fL (80.0-94.0); MEAN CORPUSCULAR HEMOGLOBIN 22.4 pg (27.0-31.0); MEAN CORPUSCULAR HGB CONC 31.9 g/dL (33.0-37.0); MEAN PLATELET VOLUME 7.9 fL (7.2-11.7); MONO # 0.5 K/uL (0.0-0.8); MONO % 4.9 % (0.0-10.0); NEUT # 8.1 K/uL (1.8-7.0); NEUT % 83.1 % (50.0-75.0); NRBC % 0.1 % (0.0-2.0); RBC 4.54 Mil/uL (4.40-5.90); RED CELL DISTRIBUTION WIDTH 19.4 % (11.5-14.5); WHITE BLOOD COUNT 9.8 K/uL (4.8-10.8)
[2018-04-25 18:37] LABS: PROTHROMBIN TIME 11.1 SECONDS (9.7-12.2)
[2018-04-25] MEDS ORDERED: Albuterol-Ipratrop 3 mg / 0.5 (3 ml) UD ONE (18:41)
--- NOTE | 2018-04-25 18:45 | C.PDOC ---
History Of Present Illness <Camelia Springer - Last Filed: 04/25/18 22:48> <Camelia Seymour - Last Filed: 04/30/18 00:00> PGY-[address] Seymour. Patient is a 68 year old male with PMHx of COPD, emphyzema on home O2, CHF, DM, HTN, s/p rectosigmoidectomy with ileostomy (03/2017) who was brought in by ALS for shortness of breath that began today. SOB did not improve despite oxygen and nebulizer treatment at home. Patient also complains of non-productive cough that began 2-3 weeks ago. Patient received Duoneb treatment en route to ED and does report some improvement in symptoms. Patient also complaining of persistent pain to ileostomy site and color change of tissue from bright red to pink. Pain worsens with palpation. Patient states he followed up with his surgeon 3 days ago who stated the site looked well. Patient denies fever, chills , chest pain, worsening leg edema, nausea, vomiting, diaphoresis and dizziness. (Camelia Springer) <Camelia Springer - Last Filed: 04/25/18 22:48> <Camelia Seymour - Last Filed: 04/30/18 00:00> Time Seen by Provider: 04/25/18 17:49 Chief Complaint (Nursing): Shortness Of Breath Past Medical History - Medical History PMH: Anemia, Anxiety, Arthritis, Asthma, Bronchitis, Cardia Arrhythmia (SVT), CHF, COPD, Diabetes, Emphysema, HTN, Hypercholesterolemia, Kidney Stones, Pneumonia, Chronic Kidney Disease, Sleep Apnea (ON DALIRESP) Denies: Fractures, Gastritis Surgical History: Endoscopy Family History: States: Unknown Family Hx - Social History Hx Tobacco Use: Yes (8 years ppd smoker. quit 1.5 years ago) Hx Alcohol Use: No Hx Substance Use: No - Immunization History Hx Tetanus Toxoid Vaccination: No Hx Influenza Vaccination: Yes (2016) Hx Pneumococcal Vaccination: Yes <Camelia Springer - Last Filed: 04/25/18 22:48> Vital Signs: Last Vital Signs Temp 98.6 F 04/29/18 16:00 Pulse 105 H 04/29/18 16:00 Resp 20 09/17/18 16:00 BP 129/74 04/29/18 16:00 Pulse Ox 94 L 04/29/18 16:00 - [facility] Procedures ASSISTANCE WITH RESPIRATORY VENTILATION, 24-96 HRS, CPAP (04/01/18) ASSISTANCE WITH RESPIRATORY VENTILATION, <24 HRS, CPAP (11/14/17) ASSISTANCE WITH RESPIRATORY VENTILATION, >96 HRS, CPAP (03/16/18) CONTINUOUS INVASIVE MECHANICAL VENTILATION <96 CONSEC HRS (11/29/14) DILATION OF RIGHT URETER WITH INTRALUMINAL DEVICE, ENDO (03/20/17) DRAINAGE OF BLADDER WITH DRAINAGE DEVICE, VIA OPENING (12/04/17) DRAINAGE OF RECTUM, PERCUTANEOUS APPROACH (12/04/17) EXCISION OF ILEUM, OPEN APPROACH (12/04/17) EXCISION OF SIGMOID COLON, ENDO, DIAGN (03/20/17) EXCISION OF STOMACH, ENDO, DIAGN (03/20/17) EXCISION OF TRANSVERSE COLON, ENDO, DIAGN (03/20/17) INFLUENZA VACCINATION (06/02/14) INSERT ENDOTRACHEAL TUBE (11/29/14) INSERTION OF INFUSION DEV INTO SUP VENA CAVA, PERC APPROACH (01/26/18) INSERTION OF INTRALUM DEV INTO INF VENA CAVA, PERC APPROACH (03/06/18) LARYGNOSCOPY AND OTH TRACHEOSCOPY (04/18/15) MEASURE OF CARDIAC SAMPL & PRESSURE, L HEART, PERC APPROACH (12/01/15) NON-INVASIVE MECHANICAL VENTILATION (04/18/15) RESECTION OF SIGMOID COLON, OPEN APPROACH (03/20/17) RESPIRATORY VENTILATION, GREATER THAN 96 CONSECUTIVE HOURS (03/20/17) Review Of Systems Constitutional: Negative for: Fever, Chills, Sweats Cardiovascular: Positive for: Palpitations. Negative for: Chest Pain Respiratory: Positive for: Cough, Shortness of Breath. Negative for: Hemoptysis Gastrointestinal: Negative for: Nausea, Vomiting, Abdominal Pain, Diarrhea Skin: Positive for: Bruising Neurological: Negative for: Weakness, Numbness <Springer,Camelia P - Last Filed: 04/25/18 22:48> Physical Exam - Physical Exam Appears: No Acute Distress Skin: Normal Color, Warm, Dry, Ecchymosis (bilateral upper arms), Other (mild erythema surrounding ileostomy site.) Head: Atraumatic, Normacephalic Eye(s): bilateral: Normal Inspection, PERRL, EOMI Oral Mucosa: Moist Tongue: Normal Appearing Throat: Normal Neck: Normal ROM Chest: Symmetrical Cardiovascular: Rhythm Regular (tachycardic) Respiratory: Decreased Breath Sounds, Accessory Muscle Use, Rales (lower gonzalez bilaterally), Wheezing (expiratory), Other (lips pursed) Gastrointestinal/Abdominal: Bowel Sounds, Soft, Tenderness (to ileostomy site), Other (prolapsed bowl noted at ileostomy site) Extremity: Pedal Edema (R > L) Neurological/Psych: Oriented x3, Normal Speech, Normal Cognition, Normal Cranial Nerves (grossly) <Camelia Springer - Last Filed: 04/25/18 22:48> ED Course And Treatment - Laboratory Results Result Diagrams: 04/25/18 18:21 04/25/18 18:21 Lab Interpretation: Abnormal (elevated lactic acid) ECG: Viewed By Me ECG Rhythm: Sinus Tachycardia Interpretation Of ECG: Rate: 111. OR interval 128. QRS: 80. QT/QTc 356/484. Sinus tachycardia with PACs Pulse Ox Interpretation: Normal - Radiology CXR: Viewed By Me, Read By Radiologist CXR Interpretation: Yes: No Acute Disease <Camelia Springer - Last Filed: 04/25/18 22:48> - Laboratory Results Result Diagrams: 04/27/18 07:16 04/29/18 19:46 <Camelia Seymour - Last Filed: 04/30/18 00:00> Supervising Attending Note - Supervising Attending Note The Documented history was done by the: Physician Inventory And Pricing Associate, Attending Physician The documented physical exam was done by the: Physician Inventory And Pricing Associate, Attending Physician - Attestation: I have personally seen and examined this patient.: Yes I have fully participated in the care of the patient.: Yes I have reviewed all pertinent clinical information, including history, physical exam and plan: Yes <Camelia Seymour - Last Filed: 04/30/18 00:00> Medical Decision Making <Camelia Springer - Last Filed: 04/25/18 22:48> <Camelia Seymour - Last Filed: 04/30/18 00:00> Medical Decision Making: Plan: -CBC, CMP -PT/INR, PTT -Lactic acid -Blood culture -ABG -troponin -EKG -CXR -methylprednisolone -duonebs 21:00 Surgery consulted for ileostomy prolapse. Case discussed with surgical assistant Dr. Cifuentes working under Dr. Nieto. 21:[address] Garcia. Patient will be admitted. (Camelia Springer) Disposition Discussed With .: Hal Garcia Doctor Will See Patient In The: Hospital - Disposition Disposition Time: 21:30 <Camelia Springer - Last Filed: 04/25/18 22:48> <Camelia Seymour - Last Filed: 04/30/18 00:00> - Disposition Disposition: HOSPITALIZED Condition: STABLE - Clinical Impression Clinical Impression: COPD exacerbation
--- NOTE | 2018-04-25 18:48 | RAD ---
Date of service: 04/25/2018 PROCEDURE: CHEST RADIOGRAPH, 1 VIEW HISTORY: SOB COMPARISON: 04/09/2018. FINDINGS: LUNGS: Clear. PLEURA: No pneumothorax or pleural fluid seen. CARDIOVASCULAR: No radiographic findings to suggest acute or significant cardiovascular disease. OSSEOUS STRUCTURES: No significant abnormalities. VISUALIZED UPPER ABDOMEN: Normal. OTHER FINDINGS: None. IMPRESSION: No active disease. No acute/significant interval changes.
[2018-04-25 18:53] LABS: ALB/GLOB RATIO 1.6 (1.0-2.1); ALBUMIN 4.3 g/dL (3.5-5.0); ALT/SGPT 70 U/L (21-72); AST/SGOT 38 U/L (17-59); BLOOD UREA NITROGEN 5 mg/dL (9-20); CALCIUM 9.8 mg/dl (8.6-10.4); GFR NON-AFRICAN AMERICAN > 60
[2018-04-25 19:00] LABS: B-TYPE NATRIURETIC PEPTIDE 44.3 pg/mL (0-900)
[2018-04-25 19:00] LABS: ABG ALLEN TEST POS; ARTERIAL BLOOD GAS HCO3 26.6 mmol/L (21-28); ARTERIAL BLOOD GAS HEMOGLOBIN 10.2 g/dL (11.7-17.4); ARTERIAL BLOOD GAS O2 SAT 99.8 % (95-98); ARTERIAL BLOOD GAS PCO2 39 mm/Hg (35-45); ARTERIAL BLOOD GAS PH 7.44 (7.35-7.45); ARTERIAL BLOOD GAS PO2 118 mm/Hg (80-100); ARTERIAL BLOOD GAS TCO2 27.7 mmol/L (22-28)
[2018-04-25] MEDS ORDERED: Morphine 4 MG/ML VIAL ONE (21:12)
[2018-04-25] MEDS ORDERED: Sodium Chloride 0.9% 500 ML IV ONE (21:31)
[2018-04-25] MEDS ORDERED: Sodium Chloride 0.9% 1,000 ML ONE (21:43)
[2018-04-25] MEDS: Bismuth Subsalicylate 262 mg/15 ml Sus (240 ml) PO SCH (23:55)
[2018-04-26] MEDS: MethylPREDNISolone 40 mg Vial IVP SCH ×3 (00:22→21:49)
--- NOTE | 2018-04-26 01:14 | CP.PCM.CON ---
Addendum entered and electronically signed by Joshua Mcmullen DO 04/26/18 09:14: Pt currently on chronic steroids and eliquis. Held eliquis will need medical optimization prior to any intervention consideration of ostomy reversal vs parastomal hernia repair - pending medical clearance further recs to follow Original Note: History of Present Illness - History of Present Illness History of Present Illness: General surgery consult note for Dr. Barak Hanna, PGY-2 Pt S & E at bedside at 0015 68M w/PMH sig for COPD, hx Colon CA s/p resection & colostomy placement co nsulted for colostomy evaluation. Pt admitted to hospital for SOB. Pt reports pain at colostomy site x 2-3 weeks, radiates around colostomy site. Colostomy continues to have output to it. Pt reports stoma is more protuberant than previous, mucosal tissue color change. Pain is worse with palpation. Admits to SOB (baseline, uses O2). Denies N & V, F & C, CP, LE edema, other complaints. PMH: DM, COPD, emphysema, Hx colon CA, DVT, CHF PSH: rectosigmoidectomy w/ileostomy, IVC filter placement, PCI w/stents All: Tylenol, fish & shrimp SH: hx tobacco abuse, denies ETOH or illicit drug use PMH: Dr. Garcia Review of Systems - Review of Systems All systems: reviewed and no additional remarkable complaints except - Constitutional Constitutional: absent: Chills, Fever - Cardiovascular Cardiovascular: absent: Chest Pain - Gastrointestinal Gastrointestinal: Abdominal Pain. absent: Constipation, Nausea, Vomiting - Genitourinary Genitourinary: absent: Change in Urinary Stream - Musculoskeletal Musculoskeletal: absent: Back Pain - Neurological Neurological: absent: Weakness Past Patient History - Infectious Disease Hx of Infectious Diseases: None - Past Medical History & Family History Past Medical History?: Yes - Past Social History Smoking Status: Former Smoker - CARDIAC Hx Cardia Arrhythmia: Yes (SVT) Hx Congestive Heart Failure: Yes Hx Hypercholesterolemia: Yes Hx Hypertension: Yes - PULMONARY Hx Asthma: Yes Hx Bronchitis: Yes Hx Chronic Obstructive Pulmonary Disease (COPD): Yes Hx Emphysema: Yes Hx Pneumonia: Yes Hx Sleep Apnea: Yes (ON DALIRESP) - NEUROLOGICAL Hx Neurological Disorder: No HX Cerebrovascular Accident: No - HEENT Hx HEENT Problems: Yes Hx Cataracts: Yes - RENAL Hx Chronic Kidney Disease: Yes Hx Kidney Stones: Yes - ENDOCRINE/METABOLIC Hx Endocrine Disorders: Yes Hx Diabetes Mellitus Type 2: Yes - HEMATOLOGICAL/ONCOLOGICAL Hx Anemia: Yes - INTEGUMENTARY Hx Dermatological Problems: No (SEE COMMENT) Other/Comment: Scattered ecchymosis on both arms. - MUSCULOSKELETAL/RHEUMATOLOGICAL Hx Arthritis: Yes Hx Fractures: No - GASTROINTESTINAL Hx Gastritis: No - PSYCHIATRIC Hx Anxiety: Yes Hx Substance Use: No - SURGICAL HISTORY Hx Surgeries: Yes (SEE COMMENT) Hx Cataract Extraction: Yes (left eye, right eye) Hx Cardiac Catheterization: Yes (11/2015) Hx Eye Surgery: Yes Hx Pulmonary Surgery: Yes Other/Comment: colon resection with right ileostomy - ANESTHESIA Hx Anesthesia: Yes Hx Anesthesia Reactions: No Hx Malignant Hyperthermia: No Meds Allergies/Adverse Reactions: Allergies Allergy/AdvReac Type Severity Reaction Status Date / Time acetaminophen [From Tylenol] Allergy RASH Verified 04/25/18 17:39 FISH Allergy SWELLING Verified 04/25/18 17:39 shrimp Allergy SHORTNESS Verified 04/25/18 17:39 OF BREATH IV dye Allergy Severe ANAPHYLAXIS Uncoded 04/25/18 17:39 - Medications Medications: Current Medications Albuterol (Ventolin Hfa 90 Mcg/Actuation (8 G)) 1 puff INH RQ6 PRN PRN Reason: Shortness of Breath Alprazolam (Xanax) 0.5 mg PO Q12 [facility] Last Admin: 04/26/18 00:23 Dose: 0.5 mg Apixaban (Eliquis) 5 mg PO BID [facility] Bismuth Subsalicylate (Pepto-Bismol) 262 mg PO BID [facility] Last Admin: 04/25/18 23:55 Dose: Not Given Budesonide (Pulmicort Respules) 0.5 mg INH RQ12 [facility] Diltiazem HCl (Cardizem) 30 mg PO QID [facility] Guaifenesin (Robitussin) 200 mg PO QID [facility] Insulin Human Regular (Novolin R) 0 unit SC ACHS [facility] PRN Reason: Protocol Metformin HCl (Glucophage) 500 mg PO BID [facility] Methylprednisolone (Solu-Medrol) 40 mg IVP Q12 [facility] Last Admin: 04/26/18 00:22 Dose: 40 mg Morphine Sulfate (Morphine) 2 mg IVP Q4H PRN PRN Reason: Pain, moderate (4-7) Multivitamins (Hexavitamin) 1 tab PO DAILY [facility] Pantoprazole Sodium (Protonix Ec Tab) 40 mg PO DAILY [facility] Pregabalin (Lyrica) 75 mg PO BID [facility] Last Admin: 04/26/18 00:22 Dose: 75 mg Roflumilast (Daliresp) 500 mcg PO DAILY [facility] Fluticasone/Salmeterol (Advair Diskus 250/50) 1 puff IH RQ12 [facility] Physical Exam - Constitutional Appears: Non-toxic, No Acute Distress - Head Exam Head Exam: ATRAUMATIC, NORMAL INSPECTION, NORMOCEPHALIC - Eye Exam Eye Exam: EOMI, Normal appearance - ENT Exam ENT Exam: Mucous Membranes Moist, Normal Exam - Neck Exam Neck exam: Positive for: Full Rom, Normal Inspection - Respiratory Exam Respiratory Exam: NORMAL BREATHING PATTERN - Cardiovascular Exam Cardiovascular Exam: REGULAR RHYTHM, +S1, +S2 - GI/Abdominal Exam GI & Abdominal Exam: Soft, Tenderness (surrounding ileostomy). absent: Distended, Firm, Guarding Additional comments: ileostomy beefy red, protuberant approximately 6cm out into ostomy bag - Extremities Exam Extremities exam: Positive for: normal inspection - Neurological Exam Neurological exam: Alert, CN II-XII Intact, Oriented x3 - Psychiatric Exam Psychiatric exam: Normal Affect, Normal Mood - Skin Skin Exam: Dry, Normal Color, Warm Results - Vital Signs Recent Vital Signs: Last Vital Signs Temp 98.3 F 04/25/18 17:25 Pulse 99 H 04/25/18 21:11 Resp 16 04/25/18 22:15 BP 127/69 04/25/18 21:11 Pulse Ox 98 04/25/18 22:15 - Labs Result Diagrams: 04/25/18 18:21 04/25/18 18:21 Labs: Laboratory Results - last 24 hr 04/25/18 04/25/18 04/25/18 18:21 18:21 18:21 WBC 9.8 RBC 4.54 Hgb 10.2 L Hct 31.9 L MCV 70.4 L MCH 22.4 L MCHC 31.9 L RDW 19.4 H Plt Count 256 D MPV 7.9 Neut % (Auto) 83.1 H Lymph % (Auto) 10.5 L Lamb % (Auto) 4.9 Eos % (Auto) 0.6 Baso % (Auto) 0.9 Neut # (Auto) 8.1 H Lymph # (Auto) 1.0 Lamb # (Auto) 0.5 Eos # (Auto) 0.1 Baso # (Auto) 0.1 PT 11.1 INR 1.0 APTT 31 Puncture Site pCO2 pO2 HCO3 ABG pH ABG Total CO2 ABG O2 Saturation ABG Base Excess ABG Hemoglobin ABG Carboxyhemoglobin POC ABG HHb (Measured) ABG Methemoglobin Jesus Test A-a O2 Difference Respiratory Index Hgb O2 Saturation Liter Flow FiO2 Sodium 143 Potassium 4.9 Chloride 100 Carbon Dioxide 30 Anion Gap 18 BUN 5 L Creatinine 0.5 L Est GFR ( Amer) > 60 Est GFR (Non-Af Amer) > 60 Random Glucose 214 H Lactic Acid Calcium 9.8 Total Bilirubin 0.3 AST 38 ALT 70 Alkaline Phosphatase 224 H D Troponin I < 0.0120 NT-Pro-B Natriuret Pep 44.3 Total Protein 6.9 Albumin 4.3 Globulin 2.6 Albumin/Globulin Ratio 1.6 04/25/18 04/25/18 18:43 18:55 WBC RBC Hgb Hct MCV MCH MCHC RDW Plt Count MPV Neut % (Auto) Lymph % (Auto) Lamb % (Auto) Eos % (Auto) Baso % (Auto) Neut # (Auto) Lymph # (Auto) Lamb # (Auto) Eos # (Auto) Baso # (Auto) PT INR APTT Puncture Site Rba pCO2 39 pO2 118 H HCO3 26.6 ABG pH 7.44 ABG Total CO2 27.7 ABG O2 Saturation 99.8 H ABG Base Excess 2.2 ABG Hemoglobin 10.2 L ABG Carboxyhemoglobin 2.5 H POC ABG HHb (Measured) 0.2 ABG Methemoglobin 1.2 Jesus Test Pos A-a O2 Difference 69.0 Respiratory Index 0.6 Hgb O2 Saturation 96.1 Liter Flow 3.0 FiO2 33.0 Sodium Potassium Chloride Carbon Dioxide Anion Gap BUN Creatinine Est GFR ( Amer) Est GFR (Non-Af Amer) Random Glucose Lactic Acid 5.3 H* Calcium Total Bilirubin AST ALT Alkaline Phosphatase Troponin I NT-Pro-B Natriuret Pep Total Protein Albumin Globulin Albumin/Globulin Ratio Assessment & Plan - Assessment and Plan (Free Text) Assessment: 68M w/PMH sig for COPD, hx Colon CA s/p resection & colostomy placement consu lted for colostomy evaluation. Afebrile, no leukocytosis Lactic acid 5.3 Plan: Hold Eliquis IVF Pain control Further recommendations pending attending evaluation Will DW Dr. Emilia Hanna, PGY-2 - Date & Time Date: 04/26/18 Time: 01:11
[2018-04-26] MEDS ORDERED: Albuterol HFA 90 mcg/actuation (8 g) INH PRN (02:00)
[2018-04-26] MEDS: Sodium Chloride 0.9% 1,000 ML IV SCH ×3 (02:48→17:30)
[2018-04-26] MEDS: Fluticasone-Salmeterol 250-50mcg Diskus IH SCH ×2 (07:52→19:15)
[2018-04-26] MEDS: Budesonide 0.5 mg/2 ml Inhal Susp UD INH SCH ×2 (07:53→19:15)
[2018-04-26] MEDS: guaiFENesin 100 mg/5 ml Syrup UD PO SCH ×4 (09:00→21:48)
[2018-04-26] MEDS: Multiple Vitamins Tab PO SCH (09:00)
[2018-04-26] MEDS: (Novolin R) Insulin Human Regular 100 units/ml vial SC SCH ×4 (09:00→21:51)
[2018-04-26] MEDS: Pantoprazole 40 mg EC Tab PO SCH (09:00)
--- NOTE | 2018-04-26 10:36 | CT ---
PROCEDURE: CT Abdomen and Pelvis without Oral or IV contrast. HISTORY: pain RLQ near colostomy COMPARISON: CT abdomen and pelvis without contrast performed 04/09/18 TECHNIQUE: Contiguous axial images of the abdomen and pelvis. No oral or IV contrast administered. Coronal and Sagittal reformats generated and reviewed. Radiation dose: Total exam DLP = 298.97 mGy-cm. This CT exam was performed using one or more of the following dose reduction techniques: Automated exposure control, adjustment of the mA and/or kV according to patient size, and/or use of iterative reconstruction technique. FINDINGS: There is limited evaluation of the solid organs without the administration of IV contrast. LOWER THORAX: Mild bibasilar atelectasis. No visible pleural effusion or pneumothorax. LIVER: Mildly nodular hepatic contour. Caudate lobe hypertrophy. Recannulization of the periumbilical vein. GALLBLADDER AND BILE DUCTS: Punctate gallstone seen on sagittal coronal images, not appreciated on axial views. PANCREAS: Atrophy. SPLEEN: Unremarkable unenhanced appearance. ADRENALS: Unremarkable unenhanced appearance. KIDNEYS AND URETERS: No hydronephrosis or obstructing renal calculus. Punctate nonobstructing right renal calculus. BLADDER: The urinary bladder appears unremarkable. REPRODUCTIVE: The prostate gland measures approximately 2.9 x 3.9 cm. APPENDIX: The appendix appears within normal limits of caliber. No secondary signs of acute appendicitis. BOWEL: The stomach is nondistended. Lack of oral contrast limits evaluation for bowel pathology. Right lower quadrant ileostomy ; evidence of peritoneal fat protruding through the ostomy site. The bowel loops appear within normal limits of caliber without evidence of intestinal obstruction. PERITONEUM: No significant free fluid. No definite free air. LYMPH NODES: No bulky lymphadenopathy identified. VASCULATURE: IVC filter. Severe atherosclerotic calcification of the aorta and aortic ectasia. No aortic aneurysm. BONES: Degenerative changes. Chronic appearing L1 compression fracture deformity. Mild compression fracture deformity of the inferior endplate of L3. OTHER FINDINGS: None. IMPRESSION: Right lower quadrant ileostomy. Some peritoneal fat is re-identified protruding through the ostomy. Correlate clinically. Question punctate gallstone in the gallbladder, however this finding is only visualized on sagittal coronal views. Hepatic findings consistent with cirrhosis. Correlate clinically. Punctate nonobstructing right renal calculus. Additional incidental findings as above. Preliminary impression was provided by virtual radiologic.
[2018-04-26] MEDS ORDERED: Sodium Chloride 0.9% 1,000 ML IV ONE (11:58)
[2018-04-26] MEDS: metroNIDAZOLE IV 500 mg/100 ml 500 MG/100 ML BAG IVPB SCH ×2 (12:37→18:44)
[2018-04-26] MEDS: Bismuth Subsalicylate 262 mg/15 ml Sus (240 ml) PO SCH ×2 (12:38→18:52)
[2018-04-26] MEDS: Piperacill/Tazo 3.375gm in Dex 3.375 GM/50 ML BAG IVPB SCH ×3 (14:40→23:59)
[2018-04-26 14:54] LABS: BLOOD UREA NITROGEN 8 mg/dL (9-20); CALCIUM 9.3 mg/dl (8.6-10.4); GFR NON-AFRICAN AMERICAN > 60
[2018-04-26] MEDS: Albuterol-Ipratrop 3 mg / 0.5 (3 ml) UD INH SCH (19:15)
--- NOTE | 2018-04-27 00:08 | CP.PCM.HP ---
History of Present Illness - History of Present Illness History of Present Illness: 68 y/o hm with copd, resp,failure, c/o acute on ch. cough congestion wheezing and chest pain, wheezing, weakness, no nausea, pain in abdomen with chronic diarrhoea Present on Admission - Present on Admission Any Indicators Present on Admission: No History of DVT/PE: Yes History of Uncontrolled Diabetes: Yes Urinary Catheter: No Decubitus Ulcer Present: No Review of Systems - Review of Systems Systems not reviewed;Unavailable: Unstable Vital Signs, Respiratory Distress - Constitutional Constitutional: Chills - EENT Eyes: Blurred Vision Nose/Mouth/Throat: Nasal Discharge - Cardiovascular Cardiovascular: Chest Pain at Rest, Dyspnea, Leg Edema - Respiratory Respiratory: Cough, Dyspnea, Dyspnea on Exertion, Wheezing, Pain on Inspiration, Chest Congestion, Excessive Mucous Production, Change in Mucous Color, Pain with Coughing - Gastrointestinal Gastrointestinal: Abdominal Pain, Belching, Bloating, Heartburn Additional comments: colostomy wit bag with lbm - Genitourinary Genitourinary: Change in Urinary Stream, Difficulty Urinating - Musculoskeletal Musculoskeletal: Arthralgias, Back Pain - Integumentary Integumentary: Dry Skin - Neurological Neurological: Paresthesias, Weakness - Psychiatric Psychiatric: Anhedonia, Anxiety Past Patient History - Infectious Disease Hx of Infectious Diseases: None - Past Medical History & Family History Past Medical History?: Yes - Past Social History Smoking Status: Never Smoked - CARDIAC Hx Cardiac Disorders: Yes Hx Cardia Arrhythmia: Yes (SVT) Hx Congestive Heart Failure: Yes Hx Hypercholesterolemia: Yes Hx Hypertension: Yes - PULMONARY Hx Respiratory Disorders: Yes Hx Asthma: Yes Hx Bronchitis: Yes Hx Chronic Obstructive Pulmonary Disease (COPD): Yes Hx Emphysema: Yes Hx Pneumonia: Yes Hx Sleep Apnea: Yes (ON DALIRESP) - NEUROLOGICAL Hx Neurological Disorder: No HX Cerebrovascular Accident: No - HEENT Hx HEENT Problems: Yes Hx Cataracts: Yes - RENAL Hx Chronic Kidney Disease: Yes Hx Kidney Stones: Yes - ENDOCRINE/METABOLIC Hx Endocrine Disorders: Yes Hx Diabetes Mellitus Type 2: Yes - HEMATOLOGICAL/ONCOLOGICAL Hx Blood Disorders: Yes Hx Anemia: Yes - INTEGUMENTARY Hx Dermatological Problems: Yes (SEE COMMENT) Other/Comment: Scattered ecchymosis on both arms. - MUSCULOSKELETAL/RHEUMATOLOGICAL Hx Falls: No - GASTROINTESTINAL Hx Gastrointestinal Disorders: No Hx Gastritis: No - GENITOURINARY/GYNECOLOGICAL Hx Genitourinary Disorders: No - PSYCHIATRIC Hx Psychophysiologic Disorder: Yes Hx Anxiety: Yes Hx Substance Use: No - SURGICAL HISTORY Hx Surgeries: Yes (SEE COMMENT) Hx Cataract Extraction: Yes (left eye, right eye) Hx Cardiac Catheterization: Yes (11/2015) Hx Eye Surgery: Yes Hx Pulmonary Surgery: Yes Other/Comment: colon resection with right ileostomy - ANESTHESIA Hx Anesthesia: Yes Hx Anesthesia Reactions: No Hx Malignant Hyperthermia: No Meds Allergies/Adverse Reactions: Allergies Allergy/AdvReac Type Severity Reaction Status Date / Time acetaminophen [From Tylenol] Allergy RASH Verified 04/25/18 17:39 FISH Allergy SWELLING Verified 04/25/18 17:39 shrimp Allergy SHORTNESS Verified 04/25/18 17:39 OF BREATH IV dye Allergy Severe ANAPHYLAXIS Uncoded 04/25/18 17:39 Physical Exam - Constitutional Appears: In Acute Distress, Chronically Ill - Head Exam Head Exam: ATRAUMATIC, NORMAL INSPECTION, NORMOCEPHALIC - Eye Exam Eye Exam: EOMI, Normal appearance, PERRL Pupil Exam: NORMAL ACCOMODATION - ENT Exam ENT Exam: Mucous Membranes Moist, Normal Exam, Normal Oropharynx, TM's Normal Bilaterally - Neck Exam Neck exam: Positive for: Normal Inspection - Respiratory Exam Respiratory Exam: Decreased Breath Sounds, Rales, Rhonchi, Wheezes - GI/Abdominal Exam GI & Abdominal Exam: Firm, Normal Bowel Sounds, Soft - Rectal Exam Rectal Exam: NORMAL INSPECTION - Exam Exam: NORMAL INSPECTION - Extremities Exam Extremities exam: Positive for: normal capillary refill, pedal edema, pedal pulses present - Back Exam Back exam: NORMAL INSPECTION - Neurological Exam Neurological exam: Alert, CN II-XII Intact, Normal Gait, Oriented x3, Reflexes Normal - Psychiatric Exam Psychiatric exam: Anxious - Skin Skin Exam: Dry, Intact Results - Vital Signs Recent Vital Signs: Last Vital Signs Temp 98.7 F 04/26/18 15:00 Pulse 110 H 04/26/18 19:17 Resp 20 04/26/18 15:00 BP 116/69 04/26/18 15:00 Pulse Ox 97 04/26/18 15:00 - Labs Result Diagrams: 04/25/18 18:21 04/26/18 13:59 Labs: Laboratory Results - last 24 hr 04/26/18 04/26/18 04/26/18 01:28 07:27 11:18 Sodium Potassium Chloride Carbon Dioxide Anion Gap BUN Creatinine Est GFR ( Amer) Est GFR (Non-Af Amer) POC Glucose (mg/dL) 222 H 194 H Random Glucose Lactic Acid 4.8 H* Calcium Troponin I 04/26/18 04/26/18 04/26/18 13:59 16:12 21:30 Sodium 138 Potassium 3.8 Chloride 100 Carbon Dioxide 24 Anion Gap 18 BUN 8 L Creatinine 0.5 L Est GFR ( Amer) > 60 Est GFR (Non-Af Amer) > 60 POC Glucose (mg/dL) 217 H 192 H Random Glucose 216 H Lactic Acid Calcium 9.3 Troponin I < 0.0120 Assessment & Plan (1) COPD exacerbation Status: Acute Priority: High (2) Abdominal pain Status: Acute Priority: High (3) Colostomy complication Status: Chronic Priority: Medium (4) Pulmonary embolism Status: Chronic Priority: Medium (5) Tachyarrhythmia Status: Acute Priority: High
[2018-04-27] MEDS: Albuterol-Ipratrop 3 mg / 0.5 (3 ml) UD INH SCH ×4 (01:41→20:04)
--- NOTE | 2018-04-27 01:51 | CON ---
DATE: 04/26/2018 CARDIOLOGY CONSULTATION REASON FOR CONSULTATION: Preoperative evaluation. HISTORY OF PRESENT ILLNESS: The patient is a 68-year-old male who has extensive past and present medical history including history of advanced chronic obstructive lung disease, history of rectal CA, status post surgery and ileostomy, history of DVT and pulmonary embolism who underwent recently IVC filter placement, and a history of fall with fracture to L1 vertebra. The patient presented this time because of shortness of breath despite nasal O2 and nebulizer therapy. The patient also was experiencing pain in the ileostomy site with prolapse and inflammation of the ileostomy and is being considered for surgical intervention. The patient denies any chest pain. His cardiac catheterization about two years ago revealed unremarkable coronary circulation. SOCIAL HISTORY: The patient is a former smoker. He is , lives with his . MEDICATIONS: Advair one puff every 12 hours, Cardizem 30 mg p.o. four times a day, Eliquis 5 mg p.o. twice a day, Flagyl 500 mg intravenously every 8 hours, Glucophage 500 mg twice a day, morphine sulfate 2 mg intravenously every 4 hours p.r.n., Pepto-Bismol 262 mg p.o. twice a day, Robitussin 200 mg p.o. four times a day, Solu-Medrol 40 mg intravenously every 12 hours, vancomycin 1 g intravenously daily, Xanax 0.5 mg twice a day, Zosyn 3.375 g intravenously every 6 hours. REVIEW OF SYSTEMS: No fever or chills. No nausea or vomiting. No bleeding from the colostomy site. The patient is still experiencing low back pain and he is using a back binder. PAST MEDICAL HISTORY: 1. Hypertension. 2. Persistent sinus tachycardia. 3. Rectal CA, status post surgical resection and ileostomy. 4. DVT and pulmonary embolism. 5. Recent fall and lumbar 1 spine fracture. 6. Few months ago, he required incision and drainage for perianal abscess. 7. Diabetes mellitus. PHYSICAL EXAMINATION: GENERAL: The patient is an elderly male who does not appear to be in acute distress. VITAL SIGNS: Blood pressure 125/74, heart rate 106, temperature 97.4, respirations 20. HEENT: Normocephalic. CHEST: Bilateral rhonchi. HEART: S1, S2 are regular. ABDOMEN: Soft. EXTREMITIES: No edema. LABORATORY DATA: Hemoglobin and hematocrit 10.1 and 31.9, white count 9.8, platelet count 156,000. Most recent SMA-7 today: Sodium 138, potassium 3.8, chloride 100, CO2 of 24, glucose 116, BUN 8, creatinine 0.5. Two sets of troponins are negative. Alkaline phosphatase is elevated at 224. Lactic acid was 5.3. PT, PTT and INR are within normal limits. EKG revealed sinus tachycardia at rate of 111 with APCs. Most recent echocardiography study from 02/2018 revealed normal left ventricular systolic function, normal ejection fraction, normal wall motion, [id number] aortic insufficiency. ASSESSMENT: 1. Infected and prolapsing ileostomy. 2. Sinus tachycardia and atrial premature complexes by electrocardiogram. 3. History of recent deep venous thrombosis and pulmonary embolism. 4. L1 spinal fracture sustained last month after a fall at home. RECOMMENDATIONS: Continue current Cardizem at 30 mg p.o. four times a day, Flagyl 500 mg intravenously every 8 hours, Glucophage 500 mg twice a day, p.r.n. intravenous morphine sulfate at 2 mg every 4 hours, Protonix 40 mg p.o. once a day, Robitussin 200 mg four times a day, Solu-Medrol 40 mg intravenously every 12 hours, vancomycin 1 g every 24 hours, Zosyn 3.375 g intravenously every 6 hours. Eliquis is on hold. The patient can be started on subcutaneous Lovenox at 40 mg daily. The patient can undergo his surgery from the cardiac point of view with postoperative telemetry or ICU monitoring depending on the patient's outcome. Pulmonary evaluation is recommended by his financial reserve clerk, Dr. Nuno. Mukesh Correia MD
[2018-04-27] MEDS: metroNIDAZOLE IV 500 mg/100 ml 500 MG/100 ML BAG IVPB SCH ×2 (02:56→10:00)
[2018-04-27] MEDS: Sodium Chloride 0.9% 1,000 ML IV SCH ×3 (05:01→22:37)
[2018-04-27] MEDS: Piperacill/Tazo 3.375gm in Dex 3.375 GM/50 ML BAG IVPB SCH ×4 (06:39→19:50)
[2018-04-27 07:34] LABS: BASO % 0.2 % (0.0-2.0); HEMOGLOBIN 8.7 g/dL (12.0-18.0); LYMPH # 0.5 K/uL (1.0-4.3); LYMPH % 4.3 % (20.0-40.0); MEAN CELL VOLUME 68.5 fL (80.0-94.0); MEAN CORPUSCULAR HEMOGLOBIN 21.9 pg (27.0-31.0); MEAN PLATELET VOLUME 8.3 fL (7.2-11.7); MONO # 0.3 K/uL (0.0-0.8); MONO % 2.8 % (0.0-10.0); NEUT # 11.4 K/uL (1.8-7.0); NEUT % 92.7 % (50.0-75.0); PLATELET COUNT 237 K/uL (130-400); RBC 3.94 Mil/uL (4.40-5.90); WHITE BLOOD COUNT 12.3 K/uL (4.8-10.8)
[2018-04-27] MEDS: (Novolin R) Insulin Human Regular 100 units/ml vial SC SCH ×4 (08:02→21:53)
[2018-04-27 08:06] LABS: BLOOD UREA NITROGEN 14 mg/dL (9-20); CALCIUM 8.7 mg/dl (8.6-10.4); GFR NON-AFRICAN AMERICAN > 60
[2018-04-27] MEDS: Fluticasone-Salmeterol 250-50mcg Diskus IH SCH ×2 (08:30→20:04)
[2018-04-27] MEDS: Budesonide 0.5 mg/2 ml Inhal Susp UD INH SCH ×2 (08:31→20:03)
--- NOTE | 2018-04-27 08:50 | CP.PCM.PN ---
Subjective - Date & Time of Evaluation Date of Evaluation: 04/27/18 Time of Evaluation: 08:15 - Subjective Subjective: Patient seen and examined. Eating at bedside. No complaints. Having BMs into ostomy. Objective - Vital Signs/Intake and Output Vital Signs (last 24 hours): Temp Pulse Resp BP Pulse Ox 98.8 F 112 H 20 124/71 96 04/27/18 07:50 04/27/18 07:50 04/27/18 07:50 04/27/18 07:50 04/27/18 07:50 Intake and Output: 04/27/18 04/27/18 06:59 18:59 Intake Total 750 300 Output Total 400 500 Balance 350 -200 - Medications Medications: Current Medications Albuterol (Ventolin Hfa 90 Mcg/Actuation (8 G)) 1 puff INH RQ6 PRN PRN Reason: Shortness of Breath Albuterol/Ipratropium (Duoneb 3 Mg/0.5 Mg (3 Ml) Ud) 3 ml INH RQ6 [facility] Last Admin: 04/27/18 01:41 Dose: 3 ml Alprazolam (Xanax) 0.5 mg PO Q12 [facility] Last Admin: 04/26/18 21:50 Dose: 0.5 mg Apixaban (Eliquis) 5 mg PO BID [facility] Last Admin: 04/26/18 09:00 Dose: 5 mg Bismuth Subsalicylate (Pepto-Bismol) 262 mg PO BID [facility] Last Admin: 04/26/18 18:52 Dose: 262 mg Budesonide (Pulmicort Respules) 0.5 mg INH RQ12 [facility] Last Admin: 04/26/18 19:15 Dose: 0.5 mg Diltiazem HCl (Cardizem) 30 mg PO QID [facility] Last Admin: 04/26/18 21:48 Dose: 30 mg Guaifenesin (Robitussin) 200 mg PO QID [facility] Last Admin: 04/26/18 21:48 Dose: 200 mg Metronidazole (Flagyl) 500 mg in 100 mls @ 100 mls/hr IVPB Q8H [facility] PRN Reason: Protocol Last Admin: 04/27/18 02:56 Dose: 100 mls/hr Piperacillin Sod/Tazobactam Sod (Zosyn 3.375 Gm Iv Premix) 3.375 gm in 50 mls @ 100 mls/hr IVPB Q6H [facility] PRN Reason: Protocol Last Admin: 04/27/18 06:39 Dose: 100 mls/hr Vancomycin HCl 1 gm/ Sodium (Chloride) 250 mls @ 166.7 mls/hr IVPB Q24H [facility] PRN Reason: Protocol Sodium Chloride (Sodium Chloride 0.9%) 1,000 mls @ 100 mls/hr IV .Q10H [facility] Last Admin: 04/27/18 05:01 Dose: Not Given Insulin Human Regular (Novolin R) 0 unit SC ACHS [facility] PRN Reason: Protocol Last Admin: 04/27/18 08:02 Dose: 2 units Metformin HCl (Glucophage) 500 mg PO BID [facility] Last Admin: 04/26/18 18:38 Dose: 500 mg Methylprednisolone (Solu-Medrol) 40 mg IVP Q12 [facility] Last Admin: 04/26/18 21:49 Dose: 40 mg Morphine Sulfate (Morphine) 2 mg IVP Q4H PRN PRN Reason: Pain, moderate (4-7) Last Admin: 04/26/18 23:59 Dose: 2 mg Multivitamins (Hexavitamin) 1 tab PO DAILY [facility] Last Admin: 04/26/18 09:00 Dose: 1 tab Pantoprazole Sodium (Protonix Ec Tab) 40 mg PO DAILY [facility] Last Admin: 04/26/18 09:00 Dose: 40 mg Pregabalin (Lyrica) 75 mg PO BID [facility] Last Admin: 04/26/18 18:41 Dose: 75 mg Roflumilast (Daliresp) 500 mcg PO DAILY [facility] Last Admin: 04/26/18 09:04 Dose: 500 mcg Fluticasone/Salmeterol (Advair Diskus 250/50) 1 puff IH RQ12 [facility] Last Admin: 04/26/18 19:15 Dose: 1 puff - Labs Labs: 04/27/18 07:16 04/27/18 07:16 PT 11.1 SECONDS (9.7-12.2) 04/25/18 18:21 INR 1.0 04/25/18 18:21 APTT 31 SECONDS (21-34) 04/25/18 18:21 - Constitutional Appears: No Acute Distress - Head Exam Head Exam: NORMOCEPHALIC - Eye Exam Eye Exam: EOMI, Normal appearance - ENT Exam ENT Exam: Mucous Membranes Moist - Respiratory Exam Respiratory Exam: NORMAL BREATHING PATTERN - Cardiovascular Exam Cardiovascular Exam: +S1, +S2 - GI/Abdominal Exam GI & Abdominal Exam: Soft - Neurological Exam Neurological Exam: Alert, Awake, Oriented x3 - Psychiatric Exam Psychiatric exam: Normal Mood - Skin Skin Exam: Dry, Intact, Warm Assessment and Plan - Assessment and Plan (Free Text) Assessment: 68M with parastomal hernia and complaints at ostomy site Plan: Pt currently on chronic steroids Consider steroid taper prior to surgical intervention F/u pulmonology recs will need medical optimization prior to any surgical intervention consideration of ostomy reversal vs parastomal hernia repair - pending medical clearance Further recs per Dr. Emilia Roach PGY3
[2018-04-27] MEDS: Multiple Vitamins Tab PO SCH (09:58)
[2018-04-27] MEDS: Pantoprazole 40 mg EC Tab PO SCH (09:58)
[2018-04-27] MEDS: guaiFENesin 100 mg/5 ml Syrup UD PO SCH ×4 (09:59→21:40)
[2018-04-27] MEDS: MethylPREDNISolone 40 mg Vial IVP SCH ×2 (10:00→21:40)
--- NOTE | 2018-04-27 10:48 | CP.PCM.CON ---
History of Present Illness - History of Present Illness History of Present Illness: reason for consultation: history of COPD And shortness of breath 68M w/PMH sig for COPD, hx Colon CA s/p resection & colostomy placement. Pt admitted to hospital for SOB. Pt reports pain at colostomy site x 2-3 weeks, radiates around colostomy site. patient denies shortness of breath, denies cough , denies fever chills now PMH: DM, COPD, emphysema, Hx colon CA, DVT, CHF PSH: rectosigmoidectomy w/ileostomy, IVC filter placement, PCI w/stents All: Tylenol, fish & shrimp SH: hx tobacco abuse, denies ETOH or illicit drug use PMH: Dr. Garcia Review of Systems - Review of Systems All systems: reviewed and no additional remarkable complaints except (abdominal pain) Past Patient History - Infectious Disease Hx of Infectious Diseases: None - Past Medical History & Family History Past Medical History?: Yes - Past Social History Smoking Status: Former Smoker - CARDIAC Hx Cardiac Disorders: Yes Hx Cardia Arrhythmia: Yes (SVT) Hx Congestive Heart Failure: Yes Hx Hypercholesterolemia: Yes Hx Hypertension: Yes - PULMONARY Hx Respiratory Disorders: Yes Hx Asthma: Yes Hx Bronchitis: Yes Hx Chronic Obstructive Pulmonary Disease (COPD): Yes Hx Emphysema: Yes Hx Pneumonia: Yes Hx Sleep Apnea: Yes (ON DALIRESP) - NEUROLOGICAL Hx Neurological Disorder: No HX Cerebrovascular Accident: No - HEENT Hx HEENT Problems: Yes Hx Cataracts: Yes - RENAL Hx Chronic Kidney Disease: Yes Hx Kidney Stones: Yes - ENDOCRINE/METABOLIC Hx Endocrine Disorders: Yes Hx Diabetes Mellitus Type 2: Yes - HEMATOLOGICAL/ONCOLOGICAL Hx Blood Disorders: Yes Hx Anemia: Yes - INTEGUMENTARY Hx Dermatological Problems: Yes (SEE COMMENT) Other/Comment: Scattered ecchymosis on both arms. - MUSCULOSKELETAL/RHEUMATOLOGICAL Hx Falls: No - GASTROINTESTINAL Hx Gastrointestinal Disorders: No Hx Gastritis: No - GENITOURINARY/GYNECOLOGICAL Hx Genitourinary Disorders: No - PSYCHIATRIC Hx Psychophysiologic Disorder: Yes Hx Anxiety: Yes Hx Substance Use: No - SURGICAL HISTORY Hx Surgeries: Yes (SEE COMMENT) Hx Cataract Extraction: Yes (left eye, right eye) Hx Cardiac Catheterization: Yes (11/2015) Hx Eye Surgery: Yes Hx Pulmonary Surgery: Yes Other/Comment: colon resection with right ileostomy - ANESTHESIA Hx Anesthesia: Yes Hx Anesthesia Reactions: No Hx Malignant Hyperthermia: No Meds Allergies/Adverse Reactions: Allergies Allergy/AdvReac Type Severity Reaction Status Date / Time acetaminophen [From Tylenol] Allergy RASH Verified 04/25/18 17:39 FISH Allergy SWELLING Verified 04/25/18 17:39 shrimp Allergy SHORTNESS Verified 04/25/18 17:39 OF BREATH IV dye Allergy Severe ANAPHYLAXIS Uncoded 04/25/18 17:39 - Medications Medications: Current Medications Albuterol (Ventolin Hfa 90 Mcg/Actuation (8 G)) 1 puff INH RQ6 PRN PRN Reason: Shortness of Breath Albuterol/Ipratropium (Duoneb 3 Mg/0.5 Mg (3 Ml) Ud) 3 ml INH RQ6 [facility] Last Admin: 04/27/18 01:41 Dose: 3 ml Alprazolam (Xanax) 0.5 mg PO Q12 [facility] Last Admin: 04/27/18 10:04 Dose: 0.5 mg Apixaban (Eliquis) 5 mg PO BID [facility] Last Admin: 04/26/18 09:00 Dose: 5 mg Bismuth Subsalicylate (Pepto-Bismol) 262 mg PO BID [facility] Last Admin: 04/26/18 18:52 Dose: 262 mg Budesonide (Pulmicort Respules) 0.5 mg INH RQ12 [facility] Last Admin: 04/26/18 19:15 Dose: 0.5 mg Diltiazem HCl (Cardizem) 30 mg PO QID [facility] Last Admin: 04/27/18 09:58 Dose: 30 mg Guaifenesin (Robitussin) 200 mg PO QID [facility] Last Admin: 04/27/18 09:59 Dose: 200 mg Piperacillin Sod/Tazobactam Sod (Zosyn 3.375 Gm Iv Premix) 3.375 gm in 50 mls @ 100 mls/hr IVPB Q6H [facility] PRN Reason: Protocol Last Admin: 04/27/18 06:39 Dose: 100 mls/hr Vancomycin HCl 1 gm/ Sodium (Chloride) 250 mls @ 166.7 mls/hr IVPB Q24H [facility] PRN Reason: Protocol Sodium Chloride (Sodium Chloride 0.9%) 1,000 mls @ 100 mls/hr IV .Q10H [facility] Last Admin: 04/27/18 05:01 Dose: Not Given Insulin Human Regular (Novolin R) 0 unit SC ACHS [facility] PRN Reason: Protocol Last Admin: 04/27/18 08:02 Dose: 2 units Metformin HCl (Glucophage) 500 mg PO BID [facility] Last Admin: 04/27/18 09:58 Dose: 500 mg Methylprednisolone (Solu-Medrol) 40 mg IVP Q12 [facility] Last Admin: 04/27/18 10:00 Dose: 40 mg Morphine Sulfate (Morphine) 2 mg IVP Q4H PRN PRN Reason: Pain, moderate (4-7) Last Admin: 04/27/18 08:49 Dose: 2 mg Multivitamins (Hexavitamin) 1 tab PO DAILY [facility] Last Admin: 04/27/18 09:58 Dose: 1 tab Pantoprazole Sodium (Protonix Ec Tab) 40 mg PO DAILY [facility] Last Admin: 04/27/18 09:58 Dose: 40 mg Pregabalin (Lyrica) 75 mg PO BID [facility] Last Admin: 04/27/18 09:58 Dose: 75 mg Roflumilast (Daliresp) 500 mcg PO DAILY [facility] Last Admin: 04/26/18 09:04 Dose: 500 mcg Fluticasone/Salmeterol (Advair Diskus 250/50) 1 puff IH RQ12 [facility] Last Admin: 04/26/18 19:15 Dose: 1 puff Physical Exam - Head Exam Head Exam: ATRAUMATIC, NORMOCEPHALIC - ENT Exam ENT Exam: Mucous Membranes Moist - Neck Exam Neck exam: Positive for: Normal Inspection - Respiratory Exam Respiratory Exam: Decreased Breath Sounds - Cardiovascular Exam Cardiovascular Exam: REGULAR RHYTHM Results - Vital Signs Recent Vital Signs: Last Vital Signs Temp 98.8 F 04/27/18 07:50 Pulse 112 H 04/27/18 07:50 Resp 20 04/27/18 07:50 BP 124/71 04/27/18 07:50 Pulse Ox 96 04/27/18 07:50 - Labs Result Diagrams: 04/27/18 07:16 04/27/18 07:16 Labs: Laboratory Results - last 24 hr 04/26/18 04/26/18 04/26/18 11:18 13:59 16:12 WBC RBC Hgb Hct MCV MCH MCHC RDW Plt Count MPV Neut % (Auto) Lymph % (Auto) [place] % (Auto) Eos % (Auto) Baso % (Auto) Neut # (Auto) Lymph # (Auto) [place] # (Auto) Eos # (Auto) Baso # (Auto) Sodium 138 Potassium 3.8 Chloride 100 Carbon Dioxide 24 Anion Gap 18 BUN 8 L Creatinine 0.5 L Est GFR ( Amer) > 60 Est GFR (Non-Af Amer) > 60 POC Glucose (mg/dL) 194 H 217 H Random Glucose 216 H Calcium 9.3 Troponin I < 0.0120 04/26/18 04/27/18 04/27/18 21:30 07:11 07:16 WBC 12.3 H RBC 3.94 L Hgb 8.7 L Hct 27.0 L MCV 68.5 L MCH 21.9 L MCHC 32.0 L RDW 19.0 H Plt Count 237 MPV 8.3 Neut % (Auto) 92.7 H Lymph % (Auto) 4.[address] [place] % (Auto) 2.8 Eos % (Auto) 0.0 Baso % (Auto) 0.2 Neut # (Auto) 11.4 H Lymph # (Auto) 0.[address] [place] # (Auto) 0.3 Eos # (Auto) 0.0 Baso # (Auto) 0.0 Sodium Potassium Chloride Carbon Dioxide Anion Gap BUN Creatinine Est GFR ( Amer) Est GFR (Non-Af Amer) POC Glucose (mg/dL) 192 H 226 H Random Glucose Calcium Troponin I 04/27/18 07:16 WBC RBC Hgb Hct MCV MCH MCHC RDW Plt Count MPV Neut % (Auto) Lymph % (Auto) [place] % (Auto) Eos % (Auto) Baso % (Auto) Neut # (Auto) Lymph # (Auto) [place] # (Auto) Eos # (Auto) Baso # (Auto) Sodium 140 Potassium 4.0 Chloride 102 Carbon Dioxide 27 Anion Gap 15 BUN 14 Creatinine 0.6 L Est GFR ( Amer) > 60 Est GFR (Non-Af Amer) > 60 POC Glucose (mg/dL) Random Glucose 229 H Calcium 8.7 Troponin I Assessment & Plan (1) COPD (chronic obstructive pulmonary disease) with emphysema Status: Acute Priority: High Comment: continue nebulizer treatment, IV steroids and BiPAP if necessary. Surgical workup
[2018-04-27 10:50] LABS: TOTAL CELLS COUNTED 100
[2018-04-27 10:51] LABS: ANISOCYTOSIS SLIGHT; LYMPHOCYTE 3 % (20-40); MONOCYTE 2 % (0-10); NEUTROPHIL 95 % (50-75); PLATELET ESTIMATE NORMAL (NORMAL); POIKILOCYTOSIS SLIGHT
[2018-04-27 10:52] LABS: HYPOCHROMIC SLIGHT; OVALOCYTES SLIGHT
[2018-04-27 10:54] LABS: BURR CELLS SLIGHT; TARGET CELLS SLIGHT; TEARDROP CELLS SLIGHT
[2018-04-27 10:55] LABS: MICROCYTOSIS SLIGHT
[2018-04-27] MEDS: Bismuth Subsalicylate 262 mg/15 ml Sus (240 ml) PO SCH ×2 (11:00→18:34)
[2018-04-27 17:37] LABS: IRON 11 ug/dL (49-181)
[2018-04-27 17:46] LABS: % IRON SATURATION 3 (20-55); TOTAL IRON BINDING CAPACITY 366 ug/dL (250-450)
--- NOTE | 2018-04-27 19:36 | PN ---
DATE: 04/27/2018 SUBJECTIVE: THE patient denies chest pain. He is mildly short of breath. He was evaluated by Dr. Nuno. PHYSICAL EXAMINATION: VITAL SIGNS: Blood pressure 124/71, heart rate 112, temperature 98.8, respirations 20. HEENT: Pale conjunctivae. CHEST: Bilateral rhonchi. HEART: S1 and S2 regular. ABDOMEN: Soft. EXTREMITIES: No edema. LABORATORY DATA: Hemoglobin and hematocrit 8.7 and 27, drop of 2.5 g compared to admission. SMA-7; sodium 140, potassium 4, chloride 102, CO2 of 27, glucose 229, BUN 14, and creatinine 0.6. ASSESSMENT: 1. Chronic obstructive lung disease. 2. Sinus tachycardia, which is physiologic response to the patient's current medical problems including the advanced chronic obstructive lung disease. 3. Infected ileostomy. 4. Hypertension. 5. Uncontrolled diabetes mellitus. 6. Anemia. 7. Recent deep vein thrombosis and pulmonary embolism. RECOMMENDATIONS: Continue Cardizem at 30 mg four times a day. Continue Robitussin 200 mg p.o. twice a day, IV vancomycin 1 g daily, IV Zosyn 3.375 g intravenously every 8 hours. Eliquis is on hold. Mukesh Correia MD
--- NOTE | 2018-04-27 19:57 | CP.PCM.PN ---
Objective - Vital Signs/Intake and Output Vital Signs (last 24 hours): Temp Pulse Resp BP Pulse Ox 98.3 F 107 H 20 120/70 96 04/27/18 15:30 04/27/18 15:30 04/27/18 15:30 04/27/18 15:30 04/27/18 15:30 Intake and Output: 04/27/1818 18:59 06:59 Intake Total 700 Output Total 1900 Balance -1200 - Medications Medications: Current Medications Albuterol (Ventolin Hfa 90 Mcg/Actuation (8 G)) 1 puff INH RQ6 PRN PRN Reason: Shortness of Breath Albuterol/Ipratropium (Duoneb 3 Mg/0.5 Mg (3 Ml) Ud) 3 ml INH RQ6 [facility] Last Admin: 04/27/18 13:30 Dose: 3 ml Alprazolam (Xanax) 0.5 mg PO Q12 [facility] Last Admin: 04/27/18 10:04 Dose: 0.5 mg Apixaban (Eliquis) 5 mg PO BID [facility] Last Admin: 04/26/18 09:00 Dose: 5 mg Bismuth Subsalicylate (Pepto-Bismol) 262 mg PO BID [facility] Last Admin: 04/27/18 18:34 Dose: 262 mg Budesonide (Pulmicort Respules) 0.5 mg INH RQ12 [facility] Last Admin: 04/27/18 08:31 Dose: Not Given Diltiazem HCl (Cardizem) 30 mg PO QID [facility] Last Admin: 04/27/18 18:30 Dose: 30 mg Guaifenesin (Robitussin) 200 mg PO QID [facility] Last Admin: 04/27/18 18:29 Dose: 200 mg Piperacillin Sod/Tazobactam Sod (Zosyn 3.375 Gm Iv Premix) 3.375 gm in 50 mls @ 100 mls/hr IVPB Q6H [facility] PRN Reason: Protocol Last Admin: 04/27/18 14:06 Dose: 100 mls/hr Vancomycin HCl 1 gm/ Sodium (Chloride) 250 mls @ 166.7 mls/hr IVPB Q24H [facility] PRN Reason: Protocol Last Admin: 04/27/18 12:36 Dose: 166.7 mls/hr Sodium Chloride (Sodium Chloride 0.9%) 1,000 mls @ 100 mls/hr IV .Q10H [facility] Last Admin: 04/27/18 05:01 Dose: Not Given Insulin Human Regular (Novolin R) 0 unit SC ACHS [facility] PRN Reason: Protocol Last Admin: 04/27/18 17:10 Dose: 4 units Metformin HCl (Glucophage) 500 mg PO BID [facility] Last Admin: 04/27/18 18:30 Dose: 500 mg Methylprednisolone (Solu-Medrol) 40 mg IVP Q12 [facility] Last Admin: 04/27/18 10:00 Dose: 40 mg Morphine Sulfate (Morphine) 2 mg IVP Q4H PRN PRN Reason: Pain, moderate (4-7) Last Admin: 04/27/18 15:10 Dose: 2 mg Multivitamins (Hexavitamin) 1 tab PO DAILY [facility] Last Admin: 04/27/18 09:58 Dose: 1 tab Pantoprazole Sodium (Protonix Ec Tab) 40 mg PO DAILY [facility] Last Admin: 04/27/18 09:58 Dose: 40 mg Pregabalin (Lyrica) 75 mg PO BID [facility] Last Admin: 04/27/18 18:33 Dose: 75 mg Roflumilast (Daliresp) 500 mcg PO DAILY [facility] Last Admin: 04/27/18 10:40 Dose: 500 mcg Fluticasone/Salmeterol (Advair Diskus 250/50) 1 puff IH RQ12 [facility] Last Admin: 04/27/18 08:30 Dose: Not Given - Labs Labs: 04/27/18 07:16 04/27/18 07:16 PT 11.1 SECONDS (9.7-12.2) 04/25/18 18:21 INR 1.0 04/25/18 18:21 APTT 31 SECONDS (21-34) 04/25/18 18:21 Assessment and Plan (1) COPD exacerbation Status: Acute (2) Abdominal pain Status: Acute (3) Colostomy complication Status: Chronic (4) Pulmonary embolism Status: Chronic (5) Tachyarrhythmia Status: Acute
--- NOTE | 2018-04-27 22:48 | CARD ---
APPROVED REPORT Date of service: 04/25/2018 EKG Measurement Heart [id number] OR 128P [id number] <Conclusion> Sinus tachycardia with premature atrial complexes Otherwise normal ECG
[2018-04-28] MEDS: Piperacill/Tazo 3.375gm in Dex 3.375 GM/50 ML BAG IVPB SCH ×4 (00:20→18:41)
--- NOTE | 2018-04-28 01:47 | PN ---
DATE: 04/27/2018 SUBJECTIVE: The patient is less short of breath, less cough, less wheezing. No nausea or vomiting. PHYSICAL EXAMINATION: VITAL SIGNS: BP 120/70, pulse 107, respiratory rate 20, temperature 98.3. LUNGS: Bilateral decrease air entry. Positive rhonchi. CARDIOVASCULAR SYSTEM: S1 and S2, regular, tachycardic. ABDOMEN: Soft. ASSESSMENT: 1. Exacerbation of chronic obstructive pulmonary disease. 2. Anemia. 3. Cancer of colon, stage 1, status post with colostomy prolapse. 4. Steroid-induced diabetes. PLAN: The patient is for possible OR. Hal Garcia MD
[2018-04-28] MEDS: Albuterol-Ipratrop 3 mg / 0.5 (3 ml) UD INH SCH ×4 (02:12→19:16)
[2018-04-28] MEDS: Budesonide 0.5 mg/2 ml Inhal Susp UD INH SCH ×2 (07:37→19:16)
[2018-04-28] MEDS: Fluticasone-Salmeterol 250-50mcg Diskus IH SCH ×2 (07:38→19:15)
[2018-04-28] MEDS: (Novolin R) Insulin Human Regular 100 units/ml vial SC SCH ×4 (08:15→21:50)
--- NOTE | 2018-04-28 09:06 | CP.PCM.PN ---
Subjective - Date & Time of Evaluation Date of Evaluation: 04/28/18 Time of Evaluation: 09:03 - Subjective Subjective: Surgery PT seen and examined. no acute events. on BIPAP at night. TOlerating diet. Pain controlled. Stoma func tioning. Objective - Vital Signs/Intake and Output Vital Signs (last 24 hours): Temp Pulse Resp BP Pulse Ox 98.3 F 90 20 128/71 97 04/28/18 08:45 04/28/18 08:45 04/28/18 08:45 04/28/18 08:45 04/28/18 08:45 Intake and Output: 04/28/18 04/28/18 06:59 18:59 Intake Total 2150 Output Total 2400 Balance -250 - Medications Medications: Current Medications Albuterol (Ventolin Hfa 90 Mcg/Actuation (8 G)) 1 puff INH RQ6 PRN PRN Reason: Shortness of Breath Albuterol/Ipratropium (Duoneb 3 Mg/0.5 Mg (3 Ml) Ud) 3 ml INH RQ6 [facility] Last Admin: 04/28/18 07:37 Dose: 3 ml Alprazolam (Xanax) 0.5 mg PO Q12 [facility] Last Admin: 04/27/18 21:48 Dose: 0.5 mg Apixaban (Eliquis) 5 mg PO BID [facility] Last Admin: 04/26/18 09:00 Dose: 5 mg Bismuth Subsalicylate (Pepto-Bismol) 262 mg PO BID [facility] Last Admin: 04/27/18 18:34 Dose: 262 mg Budesonide (Pulmicort Respules) 0.5 mg INH RQ12 [facility] Last Admin: 04/28/18 07:37 Dose: 0.5 mg Diltiazem HCl (Cardizem) 30 mg PO QID [facility] Last Admin: 04/27/18 21:40 Dose: 30 mg Guaifenesin (Robitussin) 200 mg PO QID [facility] Last Admin: 04/27/18 21:40 Dose: 200 mg Piperacillin Sod/Tazobactam Sod (Zosyn 3.375 Gm Iv Premix) 3.375 gm in 50 mls @ 100 mls/hr IVPB Q6H [facility] PRN Reason: Protocol Last Admin: 04/28/18 06:00 Dose: 100 mls/hr Sodium Chloride (Sodium Chloride 0.9%) 1,000 mls @ 100 mls/hr IV .Q10H [facility] Last Admin: 04/27/18 22:37 Dose: 100 mls/hr Vancomycin HCl 1 gm/ Sodium (Chloride) 200 mls @ 166.7 mls/hr IVPB Q24H [facility] PRN Reason: Protocol Insulin Human Regular (Novolin R) 0 unit SC ACHS [facility] PRN Reason: Protocol Last Admin: 04/28/18 08:15 Dose: 2 units Metformin HCl (Glucophage) 500 mg PO BID [facility] Last Admin: 04/27/18 18:30 Dose: 500 mg Methylprednisolone (Solu-Medrol) 40 mg IVP Q12 [facility] Last Admin: 04/27/18 21:40 Dose: 40 mg Morphine Sulfate (Morphine) 2 mg IVP Q4H PRN PRN Reason: Pain, moderate (4-7) Last Admin: 04/28/18 05:00 Dose: 2 mg Multivitamins (Hexavitamin) 1 tab PO DAILY [facility] Last Admin: 04/27/18 09:58 Dose: 1 tab Pantoprazole Sodium (Protonix Ec Tab) 40 mg PO DAILY [facility] Last Admin: 04/27/18 09:58 Dose: 40 mg Pregabalin (Lyrica) 75 mg PO BID [facility] Last Admin: 04/27/18 18:33 Dose: 75 mg Roflumilast (Daliresp) 500 mcg PO DAILY [facility] Last Admin: 04/27/18 10:40 Dose: 500 mcg Fluticasone/Salmeterol (Advair Diskus 250/50) 1 puff IH RQ12 [facility] Last Admin: 04/28/18 07:38 Dose: Not Given - Labs Labs: 04/27/18 07:16 04/27/18 07:16 PT 11.1 SECONDS (9.7-12.2) 04/25/18 18:21 INR 1.0 04/25/18 18:21 APTT 31 SECONDS (21-34) 04/25/18 18:21 - Constitutional Appears: No Acute Distress - Head Exam Head Exam: ATRAUMATIC, NORMAL INSPECTION, NORMOCEPHALIC - Eye Exam Eye Exam: EOMI, Normal appearance, PERRL Pupil Exam: NORMAL ACCOMODATION, PERRL - ENT Exam ENT Exam: Mucous Membranes Moist, Normal Exam - Neck Exam Neck Exam: Full ROM, Normal Inspection. absent: Lymphadenopathy - Respiratory Exam Respiratory Exam: NORMAL BREATHING PATTERN. absent: Respiratory Distress - Cardiovascular Exam Cardiovascular Exam: REGULAR RHYTHM - GI/Abdominal Exam GI & Abdominal Exam: Soft, Normal Bowel Sounds. absent: Tenderness Additional comments: Stoma pink. functioning - Extremities Exam Extremities Exam: Full ROM, Normal Capillary Refill, Normal Inspection. absent: Joint Swelling, Pedal Edema - Neurological Exam Neurological Exam: Alert, Awake, CN II-XII Intact, Normal Gait, Oriented x3 - Psychiatric Exam Psychiatric exam: Normal Affect, Normal Mood - Skin Skin Exam: Dry, Intact, Normal Color, Warm Assessment and Plan - Assessment and Plan (Free Text) Assessment: 68M with parastomal hernia and complaints at ostomy site Plan: Possible OR next week pending pulmonology clearance Cardiology cleared for surgery F/u pulmonology recs will need medical optimization prior to any surgical intervention consideration of ostomy reversal vs parastomal hernia repair - pending medical clearance Further recs per Dr. Nieto
[2018-04-28] MEDS: guaiFENesin 100 mg/5 ml Syrup UD PO SCH ×4 (09:46→21:33)
[2018-04-28] MEDS: Pantoprazole 40 mg EC Tab PO SCH (09:47)
[2018-04-28] MEDS: MethylPREDNISolone 40 mg Vial IVP SCH ×2 (09:47→21:34)
[2018-04-28] MEDS: Multiple Vitamins Tab PO SCH (09:47)
[2018-04-28] MEDS: Sodium Chloride 0.9% 1,000 ML IV SCH ×2 (09:48→18:44)
[2018-04-28] MEDS: Bismuth Subsalicylate 262 mg/15 ml Sus (240 ml) PO SCH ×2 (11:17→17:51)
[2018-04-28] MEDS ORDERED: Vancomycin 1 GM in Sodium Chloride 0.9% 200 ML IVPB SCH (12:00)
--- NOTE | 2018-04-28 12:28 | CP.PCM.PN ---
Subjective - Date & Time of Evaluation Date of Evaluation: 04/28/18 Time of Evaluation: 12:27 - Subjective Subjective: Pulmonary Follow up, Covering Dr Nuno The patient was Seen/interviewed and examined by me at the bedside, Medical records reviewed and Management issues were discussed and formulated with the house staff. Events reviewed Patient feeling better today No chest pain, Less Dyspnea Patient awake, comfortable, NAD Afebrile No wheezing on Exam Uses BIPAP overnight Objective - Vital Signs/Intake and Output Vital Signs (last 24 hours): Temp Pulse Resp BP Pulse Ox 98.3 F 90 20 128/71 97 04/28/18 08:45 04/28/18 08:45 04/28/18 08:45 04/28/18 08:45 04/28/18 08:45 Intake and Output: 04/28/18 04/28/18 06:59 18:59 Intake Total 2150 Output Total 2400 Balance -250 - Medications Medications: Current Medications Albuterol (Ventolin Hfa 90 Mcg/Actuation (8 G)) 1 puff INH RQ6 PRN PRN Reason: Shortness of Breath Albuterol/Ipratropium (Duoneb 3 Mg/0.5 Mg (3 Ml) Ud) 3 ml INH RQ6 [facility] Last Admin: 04/28/18 07:37 Dose: 3 ml Alprazolam (Xanax) 0.5 mg PO Q12 [facility] Last Admin: 04/28/18 09:47 Dose: 0.5 mg Apixaban (Eliquis) 5 mg PO BID [facility] Last Admin: 04/26/18 09:00 Dose: 5 mg Bismuth Subsalicylate (Pepto-Bismol) 262 mg PO BID [facility] Last Admin: 04/28/18 11:17 Dose: 262 mg Budesonide (Pulmicort Respules) 0.5 mg INH RQ12 [facility] Last Admin: 04/28/18 07:37 Dose: 0.5 mg Diltiazem HCl (Cardizem) 30 mg PO QID [facility] Last Admin: 04/28/18 09:47 Dose: 30 mg Guaifenesin (Robitussin) 200 mg PO QID [facility] Last Admin: 04/28/18 09:46 Dose: 200 mg Piperacillin Sod/Tazobactam Sod (Zosyn 3.375 Gm Iv Premix) 3.375 gm in 50 mls @ 100 mls/hr IVPB Q6H [facility] PRN Reason: Protocol Last Admin: 04/28/18 12:18 Dose: 100 mls/hr Sodium Chloride (Sodium Chloride 0.9%) 1,000 mls @ 100 mls/hr IV .Q10H [facility] Last Admin: 04/28/18 09:48 Dose: Not Given Vancomycin HCl 1 gm/ Sodium (Chloride) 200 mls @ 166.7 mls/hr IVPB Q24H [facility] PRN Reason: Protocol Insulin Human Regular (Novolin R) 0 unit SC ACHS [facility] PRN Reason: Protocol Last Admin: 04/28/18 12:17 Dose: 2 units Metformin HCl (Glucophage) 500 mg PO BID [facility] Last Admin: 04/28/18 09:47 Dose: 500 mg Methylprednisolone (Solu-Medrol) 40 mg IVP Q12 [facility] Last Admin: 04/28/18 09:47 Dose: 40 mg Morphine Sulfate (Morphine) 2 mg IVP Q4H PRN PRN Reason: Pain, moderate (4-7) Last Admin: 04/28/18 11:15 Dose: 2 mg Multivitamins (Hexavitamin) 1 tab PO DAILY [facility] Last Admin: 04/28/18 09:47 Dose: 1 tab Pantoprazole Sodium (Protonix Ec Tab) 40 mg PO DAILY [facility] Last Admin: 04/28/18 09:47 Dose: 40 mg Pregabalin (Lyrica) 75 mg PO BID [facility] Last Admin: 04/28/18 09:48 Dose: 75 mg Roflumilast (Daliresp) 500 mcg PO DAILY [facility] Last Admin: 04/28/18 10:16 Dose: 500 mcg Fluticasone/Salmeterol (Advair Diskus 250/50) 1 puff IH RQ12 [facility] Last Admin: 04/28/18 07:38 Dose: Not Given - Labs Labs: 04/27/18 07:16 04/27/18 07:16 PT 11.1 SECONDS (9.7-12.2) 04/25/18 18:21 INR 1.0 04/25/18 18:21 APTT 31 SECONDS (21-34) 04/25/18 18:21 - Constitutional Appears: Well, Non-toxic - Head Exam Head Exam: ATRAUMATIC, NORMAL INSPECTION - Eye Exam Eye Exam: EOMI. absent: Conjunctival injection Pupil Exam: NORMAL ACCOMODATION, PERRL - ENT Exam ENT Exam: Mucous Membranes Moist, Normal Exam - Neck Exam Neck Exam: Full ROM, Normal Inspection. absent: Lymphadenopathy, Meningismus, Tenderness - Respiratory Exam Respiratory Exam: Prolonged Expiratory Phase, NORMAL BREATHING PATTERN. absent : Accessory Muscle Use, Rhonchi, Wheezes, Respiratory Distress - Cardiovascular Exam Cardiovascular Exam: REGULAR RHYTHM, RRR, +S1, +S2. absent: JVD - Extremities Exam Extremities Exam: absent: Calf Tenderness, Full ROM - Back Exam Back Exam: absent: CVA tenderness (L), CVA tenderness (R) - Neurological Exam Neurological Exam: Alert, Awake, CN II-XII Intact, Oriented x3. absent: Altered , Motor Sensory Deficit Assessment and Plan (1) COPD exacerbation Status: Acute (2) Asthma Status: Acute - Assessment and Plan (Free Text) Assessment: Continue nebulizer treatment and Spiriva. Continue Antibiotics with Piperacillin Sod/Tazobactam Continue IVB Steroids Use supplemental O2 with caution given risk for CO2 retention keep SaO2 >92%
[2018-04-29] MEDS: Vancomycin 1 gm/NS 200 ml 1 GM/200 ML BAG IVPB SCH ×2 (00:18→12:30)
[2018-04-29] MEDS: Piperacill/Tazo 3.375gm in Dex 3.375 GM/50 ML BAG IVPB SCH ×4 (00:34→19:10)
[2018-04-29] MEDS: Albuterol-Ipratrop 3 mg / 0.5 (3 ml) UD INH SCH ×4 (01:21→19:24)
[2018-04-29] MEDS: Sodium Chloride 0.9% 1,000 ML IV SCH ×3 (04:50→21:48)
--- NOTE | 2018-04-29 07:31 | CP.PCM.PN ---
Subjective - Date & Time of Evaluation Date of Evaluation: 04/29/18 Time of Evaluation: 06:45 - Subjective Subjective: PGY-1 general surgery note for Dr Nieto Patient is seen and examined at bedside. Patient admits to some pain in the stomach. Patient denies fever, chills, nausea or vomiting. Patient continues using BiPAP mask. tolerating diet. Stoma working. Objective - Vital Signs/Intake and Output Vital Signs (last 24 hours): Temp Pulse Resp BP Pulse Ox 97.7 F 96 H 20 123/77 99 04/29/18 00:00 04/29/18 01:22 04/29/18 00:00 04/29/18 00:00 04/29/18 00:00 Intake and Output: 04/29/18 04/29/18 06:59 18:59 Intake Total 980 Balance 980 - Medications Medications: Current Medications Albuterol (Ventolin Hfa 90 Mcg/Actuation (8 G)) 1 puff INH RQ6 PRN PRN Reason: Shortness of Breath Albuterol/Ipratropium (Duoneb 3 Mg/0.5 Mg (3 Ml) Ud) 3 ml INH RQ6 [facility] Last Admin: 04/29/18 01:21 Dose: 3 ml Alprazolam (Xanax) 0.5 mg PO Q12 [facility] Last Admin: 04/28/18 21:34 Dose: 0.5 mg Apixaban (Eliquis) 5 mg PO BID [facility] Last Admin: 04/26/18 09:00 Dose: 5 mg Bismuth Subsalicylate (Pepto-Bismol) 262 mg PO BID [facility] Last Admin: 04/28/18 17:51 Dose: 262 mg Budesonide (Pulmicort Respules) 0.5 mg INH RQ12 [facility] Last Admin: 04/28/18 19:16 Dose: 0.5 mg Diltiazem HCl (Cardizem) 30 mg PO QID [facility] Last Admin: 04/28/18 21:34 Dose: 30 mg Guaifenesin (Robitussin) 200 mg PO QID [facility] Last Admin: 04/28/18 21:33 Dose: 200 mg Piperacillin Sod/Tazobactam Sod (Zosyn 3.375 Gm Iv Premix) 3.375 gm in 50 mls @ 100 mls/hr IVPB Q6H [facility] PRN Reason: Protocol Last Admin: 04/29/18 06:29 Dose: 100 mls/hr Sodium Chloride (Sodium Chloride 0.9%) 1,000 mls @ 100 mls/hr IV .Q10H [facility] Last Admin: 04/29/18 04:50 Dose: 100 mls/hr Insulin Human Regular (Novolin R) 0 unit SC ACHS [facility] PRN Reason: Protocol Last Admin: 04/28/18 21:50 Dose: 4 units Metformin HCl (Glucophage) 500 mg PO BID [facility] Last Admin: 04/28/18 17:50 Dose: 500 mg Methylprednisolone (Solu-Medrol) 40 mg IVP Q12 [facility] Last Admin: 04/28/18 21:34 Dose: 40 mg Morphine Sulfate (Morphine) 2 mg IVP Q4H PRN PRN Reason: Pain, moderate (4-7) Last Admin: 04/29/18 07:03 Dose: 2 mg Multivitamins (Hexavitamin) 1 tab PO DAILY [facility] Last Admin: 04/28/18 09:47 Dose: 1 tab Pantoprazole Sodium (Protonix Ec Tab) 40 mg PO DAILY [facility] Last Admin: 04/28/18 09:47 Dose: 40 mg Pregabalin (Lyrica) 75 mg PO BID [facility] Last Admin: 04/28/18 17:50 Dose: 75 mg Roflumilast (Daliresp) 500 mcg PO DAILY [facility] Last Admin: 04/28/18 10:16 Dose: 500 mcg Fluticasone/Salmeterol (Advair Diskus 250/50) 1 puff IH RQ12 [facility] Last Admin: 04/28/18 19:15 Dose: 1 puff - Labs Labs: 04/27/18 07:16 04/27/18 07:16 PT 11.1 SECONDS (9.7-12.2) 04/25/18 18:21 INR 1.0 04/25/18 18:21 APTT 31 SECONDS (21-34) 04/25/18 18:21 - Constitutional Appears: Non-toxic, No Acute Distress - Head Exam Head Exam: ATRAUMATIC, NORMAL INSPECTION, NORMOCEPHALIC - Eye Exam Eye Exam: EOMI, Normal appearance - ENT Exam ENT Exam: Normal Exam - Neck Exam Neck Exam: Full ROM - Respiratory Exam Respiratory Exam: NORMAL BREATHING PATTERN. absent: Accessory Muscle Use, Respiratory Distress Additional comments: Bipap noted in place - GI/Abdominal Exam GI & Abdominal Exam: Soft. absent: Tenderness Additional comments: stoma functioning - Extremities Exam Extremities Exam: Full ROM, Normal Inspection - Back Exam Back Exam: NORMAL INSPECTION - Neurological Exam Neurological Exam: Alert, Awake, Oriented x3 - Psychiatric Exam Psychiatric exam: Normal Affect, Normal Mood - Skin Skin Exam: Dry, Intact, Normal Color, Warm Assessment and Plan - Assessment and Plan (Free Text) Assessment: 68M with parastomal hernia and complaints at ostomy site Plan: - Cardiology cleared for surgery - F/U Pulmonary recs for surgical clearance due to Pt medical history of COPD-- F/U recs - Discuss with Dr Nieto on surgical procedure: ostomy reversal vs parastomal hernia repair - possible OR tomorrow Will discuss plan with Dr Emilia Ballard, PGY-1
[2018-04-29] MEDS: Budesonide 0.5 mg/2 ml Inhal Susp UD INH SCH ×2 (07:55→19:24)
[2018-04-29] MEDS: Fluticasone-Salmeterol 250-50mcg Diskus IH SCH ×2 (07:56→19:27)
[2018-04-29] MEDS: (Novolin R) Insulin Human Regular 100 units/ml vial SC SCH ×4 (08:50→21:50)
[2018-04-29] MEDS ORDERED: Pneumococcal 23-Valent Vaccine IM ONE (10:00)
[2018-04-29] MEDS: Bismuth Subsalicylate 262 mg/15 ml Sus (240 ml) PO SCH ×2 (11:00→17:33)
[2018-04-29] MEDS: Multiple Vitamins Tab PO SCH (11:11)
[2018-04-29] MEDS: Pantoprazole 40 mg EC Tab PO SCH (11:11)
[2018-04-29] MEDS: guaiFENesin 100 mg/5 ml Syrup UD PO SCH ×4 (11:11→21:48)
[2018-04-29] MEDS: MethylPREDNISolone 40 mg Vial IVP SCH ×2 (11:12→21:48)
[2018-04-29] MEDS: metroNIDAZOLE IV 500 mg/100 ml 500 MG/100 ML BAG IVPB SCH ×2 (11:13→17:32)
--- NOTE | 2018-04-29 14:16 | CP.PCM.PCO ---
Physician Communication Note - Physician Communication Note Physician Communication Note: medically cleared for OR tmw with acceptable risk as per Dr. Garcia
--- NOTE | 2018-04-29 14:24 | CP.PCM.PN ---
Subjective - Date & Time of Evaluation Date of Evaluation: 04/29/18 Time of Evaluation: 09:20 - Subjective Subjective: the patient seen and examined Denies shortness of breath, denies cough, denies fever chills Objective - Vital Signs/Intake and Output Vital Signs (last 24 hours): Temp Pulse Resp BP Pulse Ox 98.8 F 98 H 20 124/69 98 04/29/18 07:54 04/29/18 07:54 04/29/18 07:54 04/29/18 07:54 04/29/18 07:54 Intake and Output: 04/29/18 04/29/18 06:59 18:59 Intake Total 980 Balance 980 - Medications Medications: Current Medications Albuterol (Ventolin Hfa 90 Mcg/Actuation (8 G)) 1 puff INH RQ6 PRN PRN Reason: Shortness of Breath Albuterol/Ipratropium (Duoneb 3 Mg/0.5 Mg (3 Ml) Ud) 3 ml INH RQ6 [facility] Last Admin: 04/29/18 13:45 Dose: 3 ml Alprazolam (Xanax) 0.5 mg PO Q12 [facility] Last Admin: 04/29/18 11:11 Dose: 0.5 mg Apixaban (Eliquis) 5 mg PO BID [facility] Last Admin: 04/26/18 09:00 Dose: 5 mg Bismuth Subsalicylate (Pepto-Bismol) 262 mg PO BID [facility] Last Admin: 04/28/18 17:51 Dose: 262 mg Budesonide (Pulmicort Respules) 0.5 mg INH RQ12 [facility] Last Admin: 04/29/18 07:55 Dose: 0.5 mg Diltiazem HCl (Cardizem) 30 mg PO QID [facility] Last Admin: 04/29/18 11:11 Dose: 30 mg Guaifenesin (Robitussin) 200 mg PO QID [facility] Last Admin: 04/29/18 11:11 Dose: 200 mg Piperacillin Sod/Tazobactam Sod (Zosyn 3.375 Gm Iv Premix) 3.375 gm in 50 mls @ 100 mls/hr IVPB Q6H [facility] PRN Reason: Protocol Last Admin: 04/29/18 06:29 Dose: 100 mls/hr Sodium Chloride (Sodium Chloride 0.9%) 1,000 mls @ 100 mls/hr IV .Q10H [facility] Last Admin: 04/29/18 04:50 Dose: 100 mls/hr Metronidazole (Flagyl) 500 mg in 100 mls @ 100 mls/hr IVPB Q8H [facility] PRN Reason: Protocol Last Admin: 04/29/18 11:13 Dose: 100 mls/hr Vancomycin/Sodium Chloride (Vancomycin 1 Gm/Ns 200 Ml) 1 gm in 200 mls @ 166.6 mls/hr IVPB Q12H [facility] PRN Reason: Protocol Stop: 05/04/18 11:31 Insulin Human Regular (Novolin R) 0 unit SC ACHS [facility] PRN Reason: Protocol Last Admin: 04/29/18 08:50 Dose: 3 units Methylprednisolone (Solu-Medrol) 40 mg IVP Q12 [facility] Last Admin: 04/29/18 11:12 Dose: 40 mg Morphine Sulfate (Morphine) 2 mg IVP Q4H PRN PRN Reason: Pain, moderate (4-7) Last Admin: 04/29/18 07:03 Dose: 2 mg Multivitamins (Hexavitamin) 1 tab PO DAILY [facility] Last Admin: 04/29/18 11:11 Dose: 1 tab Pantoprazole Sodium (Protonix Ec Tab) 40 mg PO DAILY [facility] Last Admin: 04/29/18 11:11 Dose: 40 mg Pregabalin (Lyrica) 75 mg PO BID [facility] Last Admin: 04/29/18 11:11 Dose: 75 mg Roflumilast (Daliresp) 500 mcg PO DAILY [facility] Last Admin: 04/28/18 10:16 Dose: 500 mcg Fluticasone/Salmeterol (Advair Diskus 250/50) 1 puff IH RQ12 [facility] Last Admin: 04/29/18 07:56 Dose: Not Given - Labs Labs: 04/27/18 07:16 04/27/18 07:16 PT 11.1 SECONDS (9.7-12.2) 04/25/18 18:21 INR 1.0 04/25/18 18:21 APTT 31 SECONDS (21-34) 04/25/18 18:21 - Head Exam Head Exam: ATRAUMATIC, NORMOCEPHALIC - ENT Exam ENT Exam: Mucous Membranes Moist - Neck Exam Neck Exam: Normal Inspection - Respiratory Exam Respiratory Exam: Decreased Breath Sounds - Cardiovascular Exam Cardiovascular Exam: REGULAR RHYTHM - Extremities Exam Extremities Exam: Normal Inspection Assessment and Plan (1) COPD (chronic obstructive pulmonary disease) with emphysema Assessment & Plan: continue present treatment Patient is high risk for surgery considering severe COPD. Status: Acute
[2018-04-29] MEDS ORDERED: Magnesium Hydroxide Susp 30 ml UD PO ONE (17:13)
[2018-04-29] MEDS ORDERED: Ferric Sodium Gluconat Complex 62.5 mg/5 ml Vial IVPB SCH (20:00)
[2018-04-29 20:06] LABS: BLOOD UREA NITROGEN 14 mg/dL (9-20); CALCIUM 8.8 mg/dl (8.6-10.4); GFR NON-AFRICAN AMERICAN > 60
[2018-04-29] MEDS: Ferric Sodium Gluconat Complex 125 MG in Sodium Chloride 0.9% 100 ML IVPB SCH (20:17)
--- NOTE | 2018-04-29 21:51 | CP.PCM.PN ---
Objective - Vital Signs/Intake and Output Vital Signs (last 24 hours): Temp Pulse Resp BP Pulse Ox 98.6 F 105 H 20 129/74 94 L 04/29/18 16:00 04/29/18 16:00 04/29/18 16:00 04/29/18 16:00 04/29/18 16:00 Intake and Output: 04/29/1818 18:59 06:59 Intake Total 1250 Output Total 900 Balance 350 - Medications Medications: Current Medications Albuterol (Ventolin Hfa 90 Mcg/Actuation (8 G)) 1 puff INH RQ6 PRN PRN Reason: Shortness of Breath Albuterol/Ipratropium (Duoneb 3 Mg/0.5 Mg (3 Ml) Ud) 3 ml INH RQ6 [facility] Last Admin: 04/29/18 19:24 Dose: 3 ml Alprazolam (Xanax) 0.5 mg PO Q12 [facility] Last Admin: 04/29/18 21:48 Dose: 0.5 mg Apixaban (Eliquis) 5 mg PO BID [facility] Last Admin: 04/26/18 09:00 Dose: 5 mg Bismuth Subsalicylate (Pepto-Bismol) 262 mg PO BID [facility] Last Admin: 04/29/18 17:33 Dose: Not Given Budesonide (Pulmicort Respules) 0.5 mg INH RQ12 [facility] Last Admin: 04/29/18 19:24 Dose: 0.5 mg Diltiazem HCl (Cardizem) 30 mg PO QID [facility] Last Admin: 04/29/18 21:48 Dose: 30 mg Guaifenesin (Robitussin) 200 mg PO QID [facility] Last Admin: 04/29/18 21:48 Dose: 200 mg Piperacillin Sod/Tazobactam Sod (Zosyn 3.375 Gm Iv Premix) 3.375 gm in 50 mls @ 100 mls/hr IVPB Q6H [facility] PRN Reason: Protocol Last Admin: 04/29/18 19:10 Dose: 100 mls/hr Sodium Chloride (Sodium Chloride 0.9%) 1,000 mls @ 100 mls/hr IV .Q10H [facility] Last Admin: 04/29/18 21:48 Dose: Not Given Metronidazole (Flagyl) 500 mg in 100 mls @ 100 mls/hr IVPB Q8H [facility] PRN Reason: Protocol Last Admin: 04/29/18 17:32 Dose: 100 mls/hr Vancomycin/Sodium Chloride (Vancomycin 1 Gm/Ns 200 Ml) 1 gm in 200 mls @ 166.6 mls/hr IVPB Q12H [facility] PRN Reason: Protocol Stop: 05/04/18 11:31 Last Admin: 04/29/18 12:30 Dose: 166.6 mls/hr Ferric Sodium Gluconate Complex 125 mg/ Sodium Chloride 110 mls @ 110 mls/hr IVPB Q24H [facility] Stop: 05/07/18 20:01 Last Admin: 04/29/18 20:17 Dose: 110 mls/hr Insulin Human Regular (Novolin R) 0 unit SC ACHS [facility] PRN Reason: Protocol Last Admin: 04/29/18 21:50 Dose: Not Given Methylprednisolone (Solu-Medrol) 40 mg IVP Q12 [facility] Last Admin: 04/29/18 21:48 Dose: 40 mg Morphine Sulfate (Morphine) 2 mg IVP Q4H PRN PRN Reason: Pain, moderate (4-7) Last Admin: 04/29/18 19:10 Dose: 2 mg Multivitamins (Hexavitamin) 1 tab PO DAILY [facility] Last Admin: 04/29/18 11:11 Dose: 1 tab Pantoprazole Sodium (Protonix Ec Tab) 40 mg PO DAILY [facility] Last Admin: 04/29/18 11:11 Dose: 40 mg Pregabalin (Lyrica) 75 mg PO BID [facility] Last Admin: 04/29/18 17:31 Dose: 75 mg Roflumilast (Daliresp) 500 mcg PO DAILY [facility] Last Admin: 04/29/18 14:23 Dose: 500 mcg Fluticasone/Salmeterol (Advair Diskus 250/50) 1 puff IH RQ12 [facility] Last Admin: 04/29/18 19:27 Dose: Not Given - Labs Labs: 04/27/18 07:16 04/29/18 19:46 PT 11.1 SECONDS (9.7-12.2) 04/25/18 18:21 INR 1.0 04/25/18 18:21 APTT 31 SECONDS (21-34) 04/25/18 18:21 Assessment and Plan (1) COPD exacerbation Status: Acute (2) Abdominal pain Status: Acute (3) Colostomy complication Status: Chronic (4) Pulmonary embolism Status: Chronic (5) Tachyarrhythmia Status: Acute
--- NOTE | 2018-04-29 22:01 | PN ---
DATE: 04/29/2018 SUBJECTIVE: The patient denies chest pain. He is currently comfortable on BiPAP. PHYSICAL EXAMINATION: VITAL SIGNS: Blood pressure 124/69, heart rate 98, temperature 98.3, respirations 20. HEENT: Pale conjunctivae. CHEST: Bilateral rhonchi. HEART: S1 and S2 regular. ABDOMEN: Soft. EXTREMITIES: No edema. LABORATORY DATA: Today's blood sugars are 317, 254, and 196. ASSESSMENT: 1. Chronic obstructive lung disease. 2. Periods of compensatory sinus tachycardia. 3. Recent deep vein thrombosis and pulmonary embolism. 4. Infected ileostomy. 5. Uncontrolled diabetes mellitus. 6. Hypertension. RECOMMENDATIONS: Continue Cardizem at 30 mg p.o. 4 times a day. Eliquis is being on hold for surgery expected to be tomorrow. Continue IV Flagyl 500 mg every 8 hours, Robitussin 200 mg 4 times a day, Solu-Medrol 40 mg intravenously every 12 hours, vancomycin 1 g intravenously twice a day, and Zosyn 3.375 g intravenously every 6 hours. The patient can undergo abdominal surgery from the cardiac point of view with postoperative telemetry or ICU monitoring depending on the outcome. Mukesh Correia MD
[2018-04-30] MEDS: Piperacill/Tazo 3.375gm in Dex 3.375 GM/50 ML BAG IVPB SCH ×4 (00:30→19:04)
[2018-04-30] MEDS: Sodium Chloride 0.9% 1,000 ML IV SCH ×6 (01:00→21:02)
[2018-04-30] MEDS: Albuterol-Ipratrop 3 mg / 0.5 (3 ml) UD INH SCH ×5 (01:02→19:55)
--- NOTE | 2018-04-30 01:19 | PN ---
DATE: 04/29/2018 SUBJECTIVE: The patient is feeling better. He is less short of breath, less congested. No distress. He is for OR. No nausea or vomiting. No fever. PHYSICAL EXAMINATION: VITAL SIGNS: Blood pressure 129/74, pulse 100, respiratory rate 20, and temperature 98.6. LUNGS: Decreased air entry. CARDIOVASCULAR SYSTEM: S1 and S2, regular, tachycardic. ABDOMEN: Soft. ASSESSMENT: 1. Exacerbation of chronic obstructive pulmonary disease. 2. Prolapsed colostomy site. 3. Diabetes. 4. Dehydration. PLAN: We will hold metformin because of lactic acidosis. Continue vancomycin and Zosyn. Monitor the patient and once lactic acidosis , the patient will go OR. Hal Garcia MD
[2018-04-30] MEDS: metroNIDAZOLE IV 500 mg/100 ml 500 MG/100 ML BAG IVPB SCH ×3 (01:53→17:18)
[2018-04-30] MEDS: Morphine 4 MG/ML VIAL IVP PRN ×2 (05:51→20:01)
[2018-04-30] MEDS: Budesonide 0.5 mg/2 ml Inhal Susp UD INH SCH ×2 (07:23→19:55)
[2018-04-30] MEDS: Fluticasone-Salmeterol 250-50mcg Diskus IH SCH ×2 (07:23→19:55)
[2018-04-30] MEDS: (Novolin R) Insulin Human Regular 100 units/ml vial SC SCH ×4 (08:30→23:38)
[2018-04-30 09:11] LABS: ALB/GLOB RATIO 1.6 (1.0-2.1); ALBUMIN 3.9 g/dL (3.5-5.0); ALT/SGPT 62 U/L (21-72); AST/SGOT 25 U/L (17-59); BLOOD UREA NITROGEN 12 mg/dL (9-20); CALCIUM 8.9 mg/dl (8.6-10.4); GFR NON-AFRICAN AMERICAN > 60
[2018-04-30] MEDS: Multiple Vitamins Tab PO SCH (09:11)
[2018-04-30] MEDS: Pantoprazole 40 mg EC Tab PO SCH (09:11)
[2018-04-30] MEDS: Bismuth Subsalicylate 262 mg/15 ml Sus (240 ml) PO SCH ×2 (09:11→19:15)
[2018-04-30] MEDS: guaiFENesin 100 mg/5 ml Syrup UD PO SCH ×4 (09:12→21:01)
[2018-04-30] MEDS: MethylPREDNISolone 40 mg Vial IVP SCH ×2 (09:14→21:02)
[2018-04-30 09:20] LABS: BASO % 0.1 % (0.0-2.0); LYMPH # 0.6 K/uL (1.0-4.3); LYMPH % 5.7 % (20.0-40.0); MEAN CELL VOLUME 68.6 fL (80.0-94.0); MEAN CORPUSCULAR HEMOGLOBIN 21.4 pg (27.0-31.0); MEAN CORPUSCULAR HGB CONC 31.3 g/dL (33.0-37.0); MEAN PLATELET VOLUME 8.1 fL (7.2-11.7); MONO # 0.5 K/uL (0.0-0.8); MONO % 5.1 % (0.0-10.0); NEUT % 89.1 % (50.0-75.0); NRBC % 0.1 % (0.0-2.0); PLATELET COUNT 281 K/uL (130-400); RBC 4.68 Mil/uL (4.40-5.90); RED CELL DISTRIBUTION WIDTH 18.7 % (11.5-14.5); WHITE BLOOD COUNT 10.1 K/uL (4.8-10.8)
[2018-04-30 10:55] LABS: ANISOCYTOSIS MODERATE; BANDS 1 % (0-2); LYMPHOCYTE 5 % (20-40); MONOCYTE 6 % (0-10); NEUTROPHIL 88 % (50-75); PLATELET ESTIMATE NORMAL (NORMAL); TOTAL CELLS COUNTED 100
[2018-04-30 10:56] LABS: HYPOCHROMIC MODERATE; LARGE PLATELETS PRESENT; OVALOCYTES MODERATE
[2018-04-30] MEDS: Vancomycin 1 gm/NS 200 ml 1 GM/200 ML BAG IVPB SCH ×2 (11:30→23:32)
[2018-04-30] MEDS ORDERED: Propofol 10 mg/ml Inj (20 ML) ONE (11:42)
[2018-04-30] MEDS ORDERED: Neostigmine Methylsulfate 3mg/3ml Syringe IV ONE (13:06)
[2018-04-30] MEDS ORDERED: Oxycodone/Acetaminophen 5/325 mg Tab PO PRN (14:00)
[2018-04-30] MEDS: HYDROmorphone 0.5 mg/0.5 ml ISec IVP PRN ×4 (14:02→15:00)
--- NOTE | 2018-04-30 14:10 | PCM.SURG1 ---
Surgeon's Initial Post Op Note - Surgeon's Notes Surgeon: Dr. Nieto Dam Tender: Ana Maria Farooq PGY3 , Kemi PGY4 Type of Anesthesia: General Endo Anesthesia Administered By: REID Pre-Operative Diagnosis: ileostomy hernia Operative Findings: Ileostomy heria Post-Operative Diagnosis: SAme Operation Performed: Ileostomy reversal, ileocecal anastomosis Specimen/Specimens Removed: ileostomy Estimated Blood Loss: EBL {In ML}: 50 Blood Products Given: N/A Drains Used: No Drains Post-Op Condition: Fair Date of Surgery/Procedure: 04/30/18 Time of Surgery/Procedure: 14:10
[2018-04-30] MEDS: HYDROmorphone 1 mg/ml ISec IVP PRN ×2 (17:16→23:30)
--- NOTE | 2018-04-30 17:53 | CP.PCM.CON ---
History of Present Illness - History of Present Illness History of Present Illness: ICU Consult note Patient is a 68 year old male with history of severe COPD, colon cancer s/p resection and colostomy placement who is s/p ileostomy reversal with ileocecal anastomosis today. Now complains of pain to site of surgery. History obtained from prior notes and family at bedside as patient is on BIPAP. Denies fevers, chills, headache, shortness of breath, chest pain, nausea, vomiting, leg pain. PMH: DM, severe COPD on home O2, colon cancer, DVT, hx of recurrent C diff colitis, L1-2 fracture, anxiety, depression, sleep apnea, SVT PSH: colostomy s/p rectosigmoidectomy, IVC filter, rectal abscess I&D Family hx: unknown Home meds: Metformin, Robitussin, Cardizem 60mg QID, Carafate 1g QID, Roflumilast, Lyrica, Prednisone, Protonix, Multivitamin, Advair, Flexeril, Pulmicort, Eliquis, Xanax, Albuterol Allergies: Tylenol, fish, contrast ->"make him feel strange" Social history: hx of tobacco use, denies ETOH or illicit drug use. PMD: Dr. Garcia Review of Systems - Review of Systems Systems not reviewed;Unavailable: Other (On BIPAP) - Constitutional Constitutional: absent: Chills Past Patient History - Infectious Disease Hx of Infectious Diseases: None - Past Medical History & Family History Past Medical History?: Yes - Past Social History Smoking Status: Former Smoker - CARDIAC Hx Cardiac Disorders: Yes Hx Cardia Arrhythmia: Yes (SVT) Hx Congestive Heart Failure: Yes Hx Hypercholesterolemia: Yes Hx Hypertension: Yes - PULMONARY Hx Respiratory Disorders: Yes Hx Asthma: Yes Hx Bronchitis: Yes Hx Chronic Obstructive Pulmonary Disease (COPD): Yes Hx Emphysema: Yes Hx Pneumonia: Yes Hx Sleep Apnea: Yes (ON DALIRESP) - NEUROLOGICAL Hx Neurological Disorder: No HX Cerebrovascular Accident: No - HEENT Hx HEENT Problems: Yes Hx Cataracts: Yes - RENAL Hx Chronic Kidney Disease: Yes Hx Kidney Stones: Yes - ENDOCRINE/METABOLIC Hx Endocrine Disorders: Yes Hx Diabetes Mellitus Type 2: Yes - HEMATOLOGICAL/ONCOLOGICAL Hx Blood Disorders: Yes Hx Anemia: Yes - INTEGUMENTARY Hx Dermatological Problems: Yes (SEE COMMENT) Other/Comment: Scattered ecchymosis on both arms. - MUSCULOSKELETAL/RHEUMATOLOGICAL Hx Falls: No - GASTROINTESTINAL Hx Gastrointestinal Disorders: No Hx Gastritis: No - GENITOURINARY/GYNECOLOGICAL Hx Genitourinary Disorders: No - PSYCHIATRIC Hx Psychophysiologic Disorder: Yes Hx Anxiety: Yes Hx Substance Use: No - SURGICAL HISTORY Hx Surgeries: Yes (SEE COMMENT) Hx Cataract Extraction: Yes (left eye, right eye) Hx Cardiac Catheterization: Yes (11/2015) Hx Eye Surgery: Yes Hx Pulmonary Surgery: Yes Other/Comment: colon resection with right ileostomy - ANESTHESIA Hx Anesthesia: Yes Hx Anesthesia Reactions: No Hx Malignant Hyperthermia: No Meds Allergies/Adverse Reactions: Allergies Allergy/AdvReac Type Severity Reaction Status Date / Time acetaminophen [From Tylenol] Allergy RASH Verified 04/25/18 17:39 FISH Allergy SWELLING Verified 04/25/18 17:39 shrimp Allergy SHORTNESS Verified 04/25/18 17:39 OF BREATH IV dye Allergy Severe ANAPHYLAXIS Uncoded 04/25/18 17:39 - Medications Medications: Current Medications Albuterol (Ventolin Hfa 90 Mcg/Actuation (8 G)) 1 puff INH RQ6 PRN PRN Reason: Shortness of Breath Albuterol/Ipratropium (Duoneb 3 Mg/0.5 Mg (3 Ml) Ud) 3 ml INH RQ6 [facility] Last Admin: 04/30/18 14:45 Dose: 3 ml Alprazolam (Xanax) 0.5 mg PO Q12 [facility] Last Admin: 04/30/18 09:12 Dose: Not Given Apixaban (Eliquis) 5 mg PO BID [facility] Last Admin: 04/26/18 09:00 Dose: 5 mg Bismuth Subsalicylate (Pepto-Bismol) 262 mg PO BID [facility] Last Admin: 04/30/18 09:11 Dose: Not Given Budesonide (Pulmicort Respules) 0.5 mg INH RQ12 [facility] Last Admin: 04/30/18 07:23 Dose: 0.5 mg Diltiazem HCl (Cardizem) 30 mg PO QID [facility] Last Admin: 04/30/18 14:36 Dose: Not Given Guaifenesin (Robitussin) 200 mg PO QID [facility] Last Admin: 04/30/18 14:37 Dose: Not Given Hydromorphone HCl (Dilaudid) 1 mg IVP Q4H PRN PRN Reason: Pain, severe (8-10) Last Admin: 04/30/18 17:16 Dose: 1 mg Piperacillin Sod/Tazobactam Sod (Zosyn 3.375 Gm Iv Premix) 3.375 gm in 50 mls @ 100 mls/hr IVPB Q6H [facility] PRN Reason: Protocol Last Admin: 04/30/18 13:01 Dose: Not Given Metronidazole (Flagyl) 500 mg in 100 mls @ 100 mls/hr IVPB Q8H [facility] PRN Reason: Protocol Last Admin: 04/30/18 17:18 Dose: 100 mls/hr Vancomycin/Sodium Chloride (Vancomycin 1 Gm/Ns 200 Ml) 1 gm in 200 mls @ 166.6 mls/hr IVPB Q12H [facility] PRN Reason: Protocol Stop: 05/04/18 11:31 Last Admin: 04/30/18 11:30 Dose: Not Given Ferric Sodium Gluconate Complex 125 mg/ Sodium Chloride 110 mls @ 110 mls/hr IVPB Q24H [facility] Stop: 05/07/18 20:01 Last Admin: 04/29/18 20:17 Dose: 110 mls/hr Sodium Chloride (Sodium Chloride 0.9%) 1,000 mls @ 150 mls/hr IV .Q6H40M [facility] Last Admin: 04/30/18 17:20 Dose: 150 mls/hr Insulin Human Regular (Novolin R) 0 unit SC ACHS [facility] PRN Reason: Protocol Last Admin: 04/30/18 12:22 Dose: Not Given Methylprednisolone (Solu-Medrol) 40 mg IVP Q12 [facility] Last Admin: 04/30/18 09:14 Dose: 40 mg Morphine Sulfate (Morphine) 2 mg IVP Q4H PRN PRN Reason: Pain, moderate (4-7) Last Admin: 04/30/18 05:51 Dose: 2 mg Multivitamins (Hexavitamin) 1 tab PO DAILY [facility] Last Admin: 04/30/18 09:11 Dose: Not Given Oxycodone/Acetaminophen (Percocet 5/325 Mg Tab) 2 tab PO Q4H PRN PRN Reason: Pain, Mild (1-3) Stop: 05/03/18 14:01 Pantoprazole Sodium (Protonix Ec Tab) 40 mg PO DAILY [facility] Last Admin: 04/30/18 09:11 Dose: Not Given Pregabalin (Lyrica) 75 mg PO BID [facility] Last Admin: 04/30/18 09:52 Dose: Not Given Roflumilast (Daliresp) 500 mcg PO DAILY [facility] Last Admin: 04/30/18 09:11 Dose: Not Given Fluticasone/Salmeterol (Advair Diskus 250/50) 1 puff IH RQ12 [facility] Last Admin: 04/30/18 07:23 Dose: 1 puff Physical Exam - Constitutional Appears: Well Additional comments: on BIPAP - Head Exam Head Exam: ATRAUMATIC, NORMAL INSPECTION - Eye Exam Eye Exam: EOMI Pupil Exam: PERRL - ENT Exam ENT Exam: Mucous Membranes Moist - Neck Exam Neck exam: Positive for: Full Rom - Respiratory Exam Respiratory Exam: Clear to Auscultation Bilateral. absent: Respiratory Distress - Cardiovascular Exam Cardiovascular Exam: REGULAR RHYTHM, +S1, +S2 - GI/Abdominal Exam GI & Abdominal Exam: Soft (tenderness to site of right abdomen ate site of surgery ), Tenderness - Extremities Exam Extremities exam: Positive for: pedal pulses present. Negative for: calf tenderness - Neurological Exam Neurological exam: Alert Results - Vital Signs Recent Vital Signs: Last Vital Signs Temp 97.4 F L 04/30/18 13:55 Pulse 124 H 04/30/18 15:30 Resp 14 04/30/18 15:30 BP 132/85 04/30/18 15:30 Pulse Ox 97 04/30/18 15:30 - Labs Result Diagrams: 04/30/18 08:47 04/30/18 08:47 Labs: Laboratory Results - last 24 hr 04/29/18 04/29/18 04/29/18 19:46 19:46 21:37 WBC RBC Hgb Hct MCV MCH MCHC RDW Plt Count MPV Neut % (Auto) Lymph % (Auto) Mcclain % (Auto) Eos % (Auto) Baso % (Auto) Neut # (Auto) Lymph # (Auto) Mcclain # (Auto) Eos # (Auto) Baso # (Auto) Neutrophils % (Manual) Band Neutrophils % Lymphocytes % (Manual) Monocytes % (Manual) Platelet Estimate Large Platelets Hypochromasia (manual) Anisocytosis (manual) Ovalocytes Sodium 136 Potassium 4.2 Chloride 97 L Carbon Dioxide 25 Anion Gap 17 BUN 14 Creatinine 0.6 L Est GFR ( Amer) > 60 Est GFR (Non-Af Amer) > 60 POC Glucose (mg/dL) 283 H Random Glucose 358 H Lactic Acid Calcium 8.8 Phosphorus Magnesium Total Bilirubin AST ALT Alkaline Phosphatase Total Protein Albumin Globulin Albumin/Globulin Ratio Blood Type O POSITIVE Antibody Screen Negative 04/30/18 04/30/18 04/30/18 07:24 08:47 08:47 WBC 10.1 RBC 4.68 Hgb 10.0 L Hct 32.1 L MCV 68.6 L MCH 21.4 L MCHC 31.3 L RDW 18.7 H Plt Count 281 MPV 8.1 Neut % (Auto) 89.1 H Lymph % (Auto) 5.7 L Mcclain % (Auto) 5.1 Eos % (Auto) 0.0 Baso % (Auto) 0.1 Neut # (Auto) 9.0 H Lymph # (Auto) 0.6 L Mcclain # (Auto) 0.5 Eos # (Auto) 0.0 Baso # (Auto) 0.0 Neutrophils % (Manual) 88 H Band Neutrophils % 1 Lymphocytes % (Manual) 5 L Monocytes % (Manual) 6 Platelet Estimate Normal Large Platelets Present Hypochromasia (manual) Moderate Anisocytosis (manual) Moderate Ovalocytes Moderate Sodium 138 Potassium 4.4 Chloride 98 Carbon Dioxide 29 Anion Gap 16 BUN 12 Creatinine 0.6 L Est GFR ( Amer) > 60 Est GFR (Non-Af Amer) > 60 POC Glucose (mg/dL) 233 H Random Glucose 212 H Lactic Acid Calcium 8.9 Phosphorus 3.1 Magnesium 2.7 H Total Bilirubin 0.4 AST 25 ALT 62 Alkaline Phosphatase 157 H D Total Protein 6.4 Albumin 3.9 Globulin 2.4 Albumin/Globulin Ratio 1.6 Blood Type Antibody Screen 04/30/18 04/30/18 08:47 14:40 WBC RBC Hgb Hct MCV MCH MCHC RDW Plt Count MPV Neut % (Auto) Lymph % (Auto) Mcclain % (Auto) Eos % (Auto) Baso % (Auto) Neut # (Auto) Lymph # (Auto) Mcclain # (Auto) Eos # (Auto) Baso # (Auto) Neutrophils % (Manual) Band Neutrophils % Lymphocytes % (Manual) Monocytes % (Manual) Platelet Estimate Large Platelets Hypochromasia (manual) Anisocytosis (manual) Ovalocytes Sodium Potassium Chloride Carbon Dioxide Anion Gap BUN Creatinine Est GFR ( Amer) Est GFR (Non-Af Amer) POC Glucose (mg/dL) 261 H Random Glucose Lactic Acid 4.5 H* Calcium Phosphorus Magnesium Total Bilirubin AST ALT Alkaline Phosphatase Total Protein Albumin Globulin Albumin/Globulin Ratio Blood Type Antibody Screen Assessment & Plan - Assessment and Plan (Free Text) Assessment: 68 year old male with history of COPD, colon cancer with rectosigmoidectomy and ileostomy who is s/p ileostomy reversal and ileocecal anastomosis today. Plan: Neuro: Alert and oriented x3 Cardiovascular Not on pressors at this time Continue to monitor HR, patient has hx of SVT Hx of IVC filter, Eliquis held prior to surgery Cardizem 30mg QID Trops negative proBNP 44.3 Pulmonary Hx of severe COPD On BIPAP currently Duonebs Q6 [facility] Pulmicort Solumedrol 40mg IV Q12 CXR: no active disease. GI Abd/pelvis CT Right lower quadrant ileostomy. Some peritoneal fat is re- identified protruding through the ostomy. Correlate clinically. Question punctate gallstone in the gallbladder, however this finding is only visualized on sagittal coronal views. Hepatic findings consistent with cirrhosis. Correlate clinically. Punctate nonobstructing right renal calculus. Surgery on board Hx of Colon cancer s/p ileostomy reversal and ileocecal anastomosis Dilaudid 1mg Q4 PRN Percocet Q4 PRN Renal NS @ 150cc/hr IV BUN/Cr 12/0.6 Endo Maintain euglycemia ISS Heme/Onc Monitor H/H 10/32.1 ID Flagyl, Zosyn, Vanco Q12 Lactic acid 5.3 -> 4.8->3.5->4.5 04/25 Blood cultures prelim no growth PPX: Protonix Case discussed with Dr. Nuno
[2018-04-30] MEDS ORDERED: (Novolin R) Insulin Human Regular 100 units/ml vial SC SCH (18:00)
[2018-04-30] MEDS: Ferric Sodium Gluconat Complex 125 MG in Sodium Chloride 0.9% 100 ML IVPB SCH (20:47)
[2018-04-30] MEDS: Metoprolol 1 mg/ml Inj IVP SCH (20:50)
--- NOTE | 2018-04-30 21:53 | PN ---
DATE: 04/30/2018 SUBJECTIVE: The patient underwent ileostomy reversal and appendectomy. I saw the patient is in the recovery room, he was experiencing pain at the surgical site. He denies any chest pain and did not appear to be in any respiratory distress. PHYSICAL EXAMINATION: VITAL SIGNS: Blood pressure 132/85, heart rate 124, respiration 14, temperature 97.4. HEENT: Normocephalic. CHEST: Clear. HEART: S1 and S2 regular. ABDOMEN: Diminished bowel sounds. EXTREMITIES: No edema. LABORATORY DATA: This morning, hemoglobin and hematocrit were 10 and 32.1, white count and platelet count were within normal limit. This morning SMA-7 is within normal limits except for glucose of 212 and creatinine 0.6. Lactic acid this morning was 4.5. ASSESSMENT: 1. Status post Ileostomy reversal and appendectomy. 2. Lactic acidosis. 3. Uncontrolled diabetes mellitus. 4. Physiologic sinus tachycardia. 5. Chronic obstructive lung disease. 6. History of recent deep vein thrombosis and pulmonary embolism. RECOMMENDATIONS: Continue albuterol inhaler every 6 hours, resume Ferrlecit infusion and continue morphine sulfate to 2 mg every 4 hours p.r.n. for moderate pain. Continue Solu-Medrol 40 mg intravenously every 12 hours. Obtain 12-lead EKG and resume Eliquis once cleared from the surgical point. Mukesh Correia MD
--- NOTE | 2018-04-30 22:18 | CP.PCM.PN ---
Objective - Vital Signs/Intake and Output Vital Signs (last 24 hours): Temp Pulse Resp BP Pulse Ox 97.7 F 109 H 16 119/76 97 04/30/18 16:40 04/30/18 20:01 04/30/18 18:40 04/30/18 18:40 04/30/18 18:40 Intake and Output: 04/30/18 05/01/18 18:59 06:59 Intake Total 1750 125 Output Total 150 100 Balance 1600 25 - Medications Medications: Current Medications Albuterol (Ventolin Hfa 90 Mcg/Actuation (8 G)) 1 puff INH RQ6 PRN PRN Reason: Shortness of Breath Albuterol/Ipratropium (Duoneb 3 Mg/0.5 Mg (3 Ml) Ud) 3 ml INH RQ6 [facility] Last Admin: 04/30/18 19:55 Dose: 3 ml Alprazolam (Xanax) 0.5 mg PO Q12 [facility] Last Admin: 04/30/18 09:12 Dose: Not Given Apixaban (Eliquis) 5 mg PO BID [facility] Last Admin: 04/26/18 09:00 Dose: 5 mg Bismuth Subsalicylate (Pepto-Bismol) 262 mg PO BID [facility] Last Admin: 04/30/18 19:15 Dose: Not Given Budesonide (Pulmicort Respules) 0.5 mg INH RQ12 [facility] Last Admin: 04/30/18 19:55 Dose: Not Given Diltiazem HCl (Cardizem) 30 mg PO QID [facility] Last Admin: 04/30/18 18:00 Dose: Not Given Guaifenesin (Robitussin) 200 mg PO QID [facility] Last Admin: 04/30/18 21:01 Dose: Not Given Hydromorphone HCl (Dilaudid) 1 mg IVP Q4H PRN PRN Reason: Pain, severe (8-10) Last Admin: 04/30/18 17:16 Dose: 1 mg Piperacillin Sod/Tazobactam Sod (Zosyn 3.375 Gm Iv Premix) 3.375 gm in 50 mls @ 100 mls/hr IVPB Q6H [facility] PRN Reason: Protocol Last Admin: 04/30/18 19:04 Dose: 100 mls/hr Metronidazole (Flagyl) 500 mg in 100 mls @ 100 mls/hr IVPB Q8H [facility] PRN Reason: Protocol Last Admin: 04/30/18 17:18 Dose: 100 mls/hr Vancomycin/Sodium Chloride (Vancomycin 1 Gm/Ns 200 Ml) 1 gm in 200 mls @ 166.6 mls/hr IVPB Q12H [facility] PRN Reason: Protocol Stop: 05/04/18 11:31 Last Admin: 04/30/18 11:30 Dose: Not Given Ferric Sodium Gluconate Complex 125 mg/ Sodium Chloride 110 mls @ 110 mls/hr IVPB Q24H [facility] Stop: 05/07/18 20:01 Last Admin: 04/30/18 20:47 Dose: 110 mls/hr Sodium Chloride (Sodium Chloride 0.9%) 1,000 mls @ 150 mls/hr IV .Q6H40M [facility] Last Admin: 04/30/18 21:02 Dose: Not Given Insulin Human Regular (Novolin R) 0 unit SC Q6 [facility] PRN Reason: Protocol Methylprednisolone (Solu-Medrol) 40 mg IVP Q12 [facility] Last Admin: 04/30/18 21:02 Dose: 40 mg Metoprolol Tartrate (Lopressor) 5 mg IVP Q6H [facility] Last Admin: 04/30/18 20:50 Dose: 5 mg Morphine Sulfate (Morphine) 2 mg IVP Q4H PRN PRN Reason: Pain, moderate (4-7) Last Admin: 04/30/18 20:01 Dose: 2 mg Multivitamins (Hexavitamin) 1 tab PO DAILY [facility] Last Admin: 04/30/18 09:11 Dose: Not Given Pantoprazole Sodium (Protonix Inj) 40 mg IVP DAILY [facility] Last Admin: 04/30/18 19:13 Dose: 40 mg Pregabalin (Lyrica) 75 mg PO BID [facility] Last Admin: 04/30/18 18:00 Dose: Not Given Roflumilast (Daliresp) 500 mcg PO DAILY [facility] Last Admin: 04/30/18 09:11 Dose: Not Given Fluticasone/Salmeterol (Advair Diskus 250/50) 1 puff IH RQ12 [facility] Last Admin: 04/30/18 19:55 Dose: Not Given - Labs Labs: 04/30/18 08:47 04/30/18 08:47 PT 11.1 SECONDS (9.7-12.2) 04/25/18 18:21 INR 1.0 04/25/18 18:21 APTT 31 SECONDS (21-34) 04/25/18 18:21 Assessment and Plan (1) COPD exacerbation Status: Acute (2) Abdominal pain Status: Acute (3) Colostomy complication Status: Chronic (4) Pulmonary embolism Status: Chronic (5) Tachyarrhythmia Status: Acute
--- NOTE | 2018-05-01 00:38 | OP ---
PROCEDURE DATE: 04/30/2018 PREOPERATIVE DIAGNOSIS: Ileostomy prolapse. POSTOPERATIVE DIAGNOSIS: Ileostomy prolapse. PROCEDURE CARRIED OUT: Closure of the ileostomy, small bowel resection with anastomosis and incidental appendectomy. SURGEON: Lucho Nieto Jr., MD ASSISTANTS Dr. Mcmullen and Dr. Pena. ANESTHESIOLOGIST: Mr. Monaco and Dr. Carlisle. INDICATIONS: A 68-year-old man with severe COPD, previous low uterine resection, protective ileostomy, previous closure of the ileostomy and with complete subsequent breakdown fistulization at the site of the ostomy. OPERATIVE FINDINGS: 1. There were not particularly lot of adhesions. 2. The ostomy was dissected out. We had clean margins on both sides. We carried out the anastomosis of the ileum to the cecum. At this location of the appendix adjacent to this, we removed the appendix incidentally. There was no gross pathology. It was quite small about an inch long and not inflamed. After we carried out the anastomosis, it was airtight and successful. We then closed the abdomen with running suture of Novafil and PDS and closed the skin partially with skin clips. Blood loss to the procedure was 200 mL. Basically, we dissected out the ileostomy, dissected both ends, resected the area of the previous stoma, carried out the [id number] staple anastomosis and then took this back inside. We did an omental patch closure of the area of the sutures, otherwise, the patient did quite well. OPERATION CARRIED OUT: Reversal of ileostomy, small bowel resection with anastomosis and incidental appendectomy. Lucho Nieto Jr., MD
[2018-05-01] MEDS: Piperacill/Tazo 3.375gm in Dex 3.375 GM/50 ML BAG IVPB SCH ×4 (00:40→18:00)
[2018-05-01] MEDS: Albuterol-Ipratrop 3 mg / 0.5 (3 ml) UD INH SCH ×3 (01:16→19:40)
--- NOTE | 2018-05-01 02:03 | PN ---
DATE: 04/30/2018 SUBJECTIVE: The patient is status post OR, he underwent surgery for his prolapsed colostomy bag, afebrile, no shortness of breath postop. PHYSICAL EXAMINATION: VITAL SIGNS: BP 119/76, pulse 125, respiratory rate 22, temperature 98. LUNGS: Decreased air entry. Positive rhonchi. CVS: S1 and S2 regular. ABDOMEN: Postop. ASSESSMENT: 1. Prolapsed colotomy status post operating room. 2. Chronic obstructive pulmonary disease. 3. Steroid induced diabetes. 4. Dehydration. PLAN: Continue current mediations. Monitor the patient. Hal Garcia MD
[2018-05-01] MEDS: metroNIDAZOLE IV 500 mg/100 ml 500 MG/100 ML BAG IVPB SCH ×3 (02:35→17:12)
[2018-05-01] MEDS: Metoprolol 1 mg/ml Inj IVP SCH ×4 (02:41→20:19)
[2018-05-01] MEDS: Morphine 4 MG/ML VIAL IVP PRN ×2 (02:42→09:09)
[2018-05-01] MEDS: Sodium Chloride 0.9% 1,000 ML IV SCH ×3 (03:58→17:27)
[2018-05-01] MEDS: (Novolin R) Insulin Human Regular 100 units/ml vial SC SCH ×3 (06:03→17:26)
[2018-05-01] MEDS: HYDROmorphone 1 mg/ml ISec IVP PRN ×4 (06:04→22:19)
[2018-05-01 06:11] LABS: BASO % 0.2 % (0.0-2.0); HEMOGLOBIN 9.5 g/dL (12.0-18.0); LYMPH # 0.6 K/uL (1.0-4.3); LYMPH % 3.4 % (20.0-40.0); MEAN CELL VOLUME 67.6 fL (80.0-94.0); MEAN CORPUSCULAR HEMOGLOBIN 21.3 pg (27.0-31.0); MEAN CORPUSCULAR HGB CONC 31.5 g/dL (33.0-37.0); MONO % 6.1 % (0.0-10.0); NEUT # 15.6 K/uL (1.8-7.0); NEUT % 90.3 % (50.0-75.0); PLATELET COUNT 314 K/uL (130-400); RBC 4.48 Mil/uL (4.40-5.90); RED CELL DISTRIBUTION WIDTH 18.8 % (11.5-14.5); WHITE BLOOD COUNT 17.2 K/uL (4.8-10.8)
[2018-05-01 06:41] LABS: ALB/GLOB RATIO 1.6 (1.0-2.1); ALBUMIN 3.4 g/dL (3.5-5.0); ALT/SGPT 66 U/L (21-72); AST/SGOT 27 U/L (17-59); BLOOD UREA NITROGEN 14 mg/dL (9-20); CALCIUM 8.2 mg/dl (8.6-10.4); GFR NON-AFRICAN AMERICAN > 60
[2018-05-01] MEDS: Fluticasone-Salmeterol 250-50mcg Diskus IH SCH ×2 (07:51→19:40)
[2018-05-01] MEDS: Budesonide 0.5 mg/2 ml Inhal Susp UD INH SCH ×2 (07:52→19:40)
[2018-05-01 08:45] LABS: LYMPHOCYTE 5 % (20-40); MONOCYTE 3 % (0-10); NEUTROPHIL 92 % (50-75); PLATELET ESTIMATE NORMAL (NORMAL); TOTAL CELLS COUNTED 100
[2018-05-01 08:46] LABS: ANISOCYTOSIS SLIGHT; HYPOCHROMIC SLIGHT; MICROCYTOSIS SLIGHT; OVALOCYTES SLIGHT; POLYCHROMIC SLIGHT
[2018-05-01] MEDS: Bismuth Subsalicylate 262 mg/15 ml Sus (240 ml) PO SCH ×2 (09:17→17:11)
[2018-05-01] MEDS: MethylPREDNISolone 40 mg Vial IVP SCH ×2 (09:22→21:06)
[2018-05-01] MEDS: Multiple Vitamins Tab PO SCH (09:23)
[2018-05-01] MEDS: guaiFENesin 100 mg/5 ml Syrup UD PO SCH ×5 (09:24→21:07)
[2018-05-01] MEDS: Vancomycin 1 gm/NS 200 ml 1 GM/200 ML BAG IVPB SCH ×2 (11:54→22:35)
[2018-05-01] MEDS ORDERED: Simethicone 80 mg Chewtab PO PRN (12:20)
--- NOTE | 2018-05-01 12:25 | CP.PCM.PN ---
Subjective - Date & Time of Evaluation Date of Evaluation: 05/01/18 Time of Evaluation: 09:50 - Subjective Subjective: General surgery progress note for Dr. Barak Hanna, PGY-2 Pt S & E at bedside at 0940 Pt reports abdominal pain, bloating sensation. Denies N & V, F & C, BM, flatus. Objective - Vital Signs/Intake and Output Vital Signs (last 24 hours): Temp Pulse Resp BP Pulse Ox 98.4 F 115 H 17 138/76 100 05/01/18 04:00 05/01/18 07:52 05/01/18 06:39 05/01/18 06:39 05/01/18 06:39 Intake and Output: 05/01/18 05/01/18 06:59 18:59 Intake Total 1825 700 Output Total 510 330 Balance 1315 370 - Medications Medications: Current Medications Albuterol (Ventolin Hfa 90 Mcg/Actuation (8 G)) 1 puff INH RQ6 PRN PRN Reason: Shortness of Breath Albuterol/Ipratropium (Duoneb 3 Mg/0.5 Mg (3 Ml) Ud) 3 ml INH RQ6 [facility] Last Admin: 05/01/18 07:51 Dose: 3 ml Alprazolam (Xanax) 0.5 mg PO Q12 [facility] Last Admin: 04/30/18 09:12 Dose: Not Given Apixaban (Eliquis) 5 mg PO BID [facility] Last Admin: 04/26/18 09:00 Dose: 5 mg Bismuth Subsalicylate (Pepto-Bismol) 262 mg PO BID [facility] Last Admin: 05/01/18 09:17 Dose: Not Given Budesonide (Pulmicort Respules) 0.5 mg INH RQ12 [facility] Last Admin: 05/01/18 07:52 Dose: 0.5 mg Diltiazem HCl (Cardizem) 30 mg PO QID [facility] Last Admin: 04/30/18 18:00 Dose: Not Given Guaifenesin (Robitussin) 200 mg PO QID [facility] Last Admin: 05/01/18 09:24 Dose: Not Given Hydromorphone HCl (Dilaudid) 1 mg IVP Q4H PRN PRN Reason: Pain, severe (8-10) Last Admin: 05/01/18 06:04 Dose: 1 mg Piperacillin Sod/Tazobactam Sod (Zosyn 3.375 Gm Iv Premix) 3.375 gm in 50 mls @ 100 mls/hr IVPB Q6H [facility] PRN Reason: Protocol Last Admin: 05/01/18 06:09 Dose: 100 mls/hr Metronidazole (Flagyl) 500 mg in 100 mls @ 100 mls/hr IVPB Q8H [facility] PRN Reason: Protocol Last Admin: 05/01/18 09:25 Dose: 100 mls/hr Vancomycin/Sodium Chloride (Vancomycin 1 Gm/Ns 200 Ml) 1 gm in 200 mls @ 166.6 mls/hr IVPB Q12H [facility] PRN Reason: Protocol Stop: 05/04/18 11:31 Last Admin: 05/01/18 11:54 Dose: 166.6 mls/hr Ferric Sodium Gluconate Complex 125 mg/ Sodium Chloride 110 mls @ 110 mls/hr IVPB Q24H [facility] Stop: 05/07/18 20:01 Last Admin: 04/30/18 20:47 Dose: 110 mls/hr Sodium Chloride (Sodium Chloride 0.9%) 1,000 mls @ 150 mls/hr IV .Q6H40M [facility] Last Admin: 05/01/18 03:58 Dose: 150 mls/hr Insulin Human Regular (Novolin R) 0 unit SC Q6 [facility] PRN Reason: Protocol Last Admin: 05/01/18 06:03 Dose: Not Given Methylprednisolone (Solu-Medrol) 40 mg IVP Q12 [facility] Last Admin: 05/01/18 09:22 Dose: 40 mg Metoprolol Tartrate (Lopressor) 5 mg IVP Q6H [facility] Last Admin: 05/01/18 09:21 Dose: 5 mg Morphine Sulfate (Morphine) 2 mg IVP Q4H PRN PRN Reason: Pain, moderate (4-7) Last Admin: 05/01/18 09:09 Dose: 2 mg Multivitamins (Hexavitamin) 1 tab PO DAILY [facility] Last Admin: 05/01/18 09:23 Dose: Not Given Pantoprazole Sodium (Protonix Inj) 40 mg IVP DAILY [facility] Last Admin: 05/01/18 09:22 Dose: 40 mg Pregabalin (Lyrica) 75 mg PO BID [facility] Last Admin: 05/01/18 09:17 Dose: Not Given Roflumilast (Daliresp) 500 mcg PO DAILY [facility] Last Admin: 05/01/18 09:23 Dose: Not Given Fluticasone/Salmeterol (Advair Diskus 250/50) 1 puff IH RQ12 [facility] Last Admin: 05/01/18 07:51 Dose: 1 puff Simethicone (Mylicon Chew Tab) 80 mg PO TID PRN PRN Reason: GI distress - Labs Labs: 05/01/18 05:58 05/01/18 05:58 PT 11.1 SECONDS (9.7-12.2) 04/25/18 18:21 INR 1.0 04/25/18 18:21 APTT 31 SECONDS (21-34) 04/25/18 18:21 - Constitutional Appears: Non-toxic, No Acute Distress - Head Exam Head Exam: ATRAUMATIC, NORMAL INSPECTION, NORMOCEPHALIC - Eye Exam Eye Exam: EOMI - ENT Exam ENT Exam: Mucous Membranes Moist, Normal Exam - Neck Exam Neck Exam: Full ROM, Normal Inspection - Respiratory Exam Respiratory Exam: NORMAL BREATHING PATTERN Additional comments: On bipap - Cardiovascular Exam Cardiovascular Exam: REGULAR RHYTHM, +S1, +S2 - GI/Abdominal Exam GI & Abdominal Exam: Distended (slightly), Soft, Tenderness (Diffuse, but more over incision site in RLQ). absent: Firm, Guarding Additional comments: Dressing in place- moderate amount of sanguinous strike through to dressing - Extremities Exam Extremities Exam: Normal Inspection - Neurological Exam Neurological Exam: Alert, Awake, CN II-XII Intact, Oriented x3 - Psychiatric Exam Psychiatric exam: Normal Affect, Normal Mood - Skin Skin Exam: Dry, Intact, Normal Color, Warm Assessment and Plan - Assessment and Plan (Free Text) Assessment: 68M POD#1 s/p ileostomy reversal, ileocecal anastomosis Plan: Continue Calderon catheter Ok for PO meds Continue NPO IVF IV Abx Pain control OOBTC Ambulate Further mgmt as per primary DW Dr. Emilia Hanna, PGY-2
--- NOTE | 2018-05-01 18:52 | PN ---
DATE: 05/01/2018 SUBJECTIVE: The patient denies any chest pain. He is comfort comfortable on BiPAP. He is experiencing pain at the surgical site. PHYSICAL EXAMINATION: VITAL SIGNS: Blood pressure 135/78, heart rate 109, temperature 98.1, respiration 14. HEENT: Normocephalic. CHEST: Bilateral rhonchi. HEART: S1 and S2 regular. EXTREMITIES: No edema. LABORATORY DATA: Hemoglobin and hematocrit 9.5 and 38.3, white count 17.2, platelet count 314,000. SMA-7; sodium 139, potassium 4, chloride 101, CO2 of 29, glucose 138, BUN 14, creatinine 0.5. Postoperative EKG done yesterday revealed sinus tachycardia at the rate of 125. PVC was noted. Reverse R wave progression versus misplaced leads. ASSESSMENT: 1. Status post ileostomy reversal and appendectomy. 2. Chronic obstructive lung disease. 3. Mild anemia. 4. History of recent deep vein thrombosis and pulmonary embolism. RECOMMENDATIONS: Continue current IV Dilaudid 1 mg every 4 hours p.r.n. for pain. Resume Eliquis once cleared by Dr. Nieto. Continue Lopressor 5 mg intravenously every 6 hours. Continue morphine sulfate 2 mg intravenously every 4 hours p.r.n. Continue IV Protonix 40 mg daily. Continue Solu-Medrol 40 mg intravenously every 12 hours. Continue IV vancomycin and IV Zosyn. The patient is still n.p.o. and the plan is to transfer the patient to Telemetry, which I agree with. The case was discussed with the [employer]IST. Mukesh Correia MD [facility]
[2018-05-01] MEDS: Ferric Sodium Gluconat Complex 125 MG in Sodium Chloride 0.9% 100 ML IVPB SCH (20:03)
[2018-05-02] MEDS: (Novolin R) Insulin Human Regular 100 units/ml vial SC SCH ×4 (00:36→18:42)
[2018-05-02] MEDS: Piperacill/Tazo 3.375gm in Dex 3.375 GM/50 ML BAG IVPB SCH ×4 (01:00→19:21)
[2018-05-02] MEDS: metroNIDAZOLE IV 500 mg/100 ml 500 MG/100 ML BAG IVPB SCH ×3 (01:21→17:31)
[2018-05-02] MEDS: HYDROmorphone 1 mg/ml ISec IVP PRN ×2 (02:22→06:19)
[2018-05-02] MEDS: Albuterol-Ipratrop 3 mg / 0.5 (3 ml) UD INH SCH ×4 (03:45→19:19)
[2018-05-02] MEDS: Metoprolol 1 mg/ml Inj IVP SCH ×2 (04:00→10:11)
[2018-05-02] MEDS: Sodium Chloride 0.9% 1,000 ML IV SCH ×2 (04:12→06:33)
--- NOTE | 2018-05-02 06:57 | CARD ---
APPROVED REPORT Date of service: 04/30/2018 EKG Measurement Heart [id number] <Conclusion> Sinus tachycardia Anteroseptal infarct, age undetermined Abnormal ECG
[2018-05-02] MEDS: Budesonide 0.5 mg/2 ml Inhal Susp UD INH SCH ×2 (07:56→19:19)
[2018-05-02] MEDS: Morphine 4 MG/ML VIAL IVP PRN ×3 (07:58→22:17)
--- NOTE | 2018-05-02 08:11 | CP.PCM.PN ---
Subjective - Date & Time of Evaluation Date of Evaluation: 05/02/18 Time of Evaluation: 08:09 - Subjective Subjective: General surgery progress note for Dr. Barak Hanna, PGY-2 Pt S & E at bedside at 0750 Pt reports abdominal pain, but improved. No longer bloated. Denies N & V, F & C, flatus, BM. Has not been OOBTC. Objective - Vital Signs/Intake and Output Vital Signs (last 24 hours): Temp Pulse Resp BP Pulse Ox 98.1 F 105 H 11 L 139/97 H 100 05/01/18 12:00 05/02/18 00:00 05/02/18 00:00 05/02/18 00:00 05/02/18 00:00 Intake and Output: 05/02/18 05/02/18 06:59 18:59 Intake Total 2170 Output Total 1280 Balance 890 - Medications Medications: Current Medications Albuterol (Ventolin Hfa 90 Mcg/Actuation (8 G)) 1 puff INH RQ6 PRN PRN Reason: Shortness of Breath Albuterol/Ipratropium (Duoneb 3 Mg/0.5 Mg (3 Ml) Ud) 3 ml INH RQ6 [facility] Last Admin: 05/02/18 07:56 Dose: 3 ml Alprazolam (Xanax) 0.5 mg PO Q12 [facility] Last Admin: 04/30/18 09:12 Dose: Not Given Apixaban (Eliquis) 5 mg PO BID [facility] Last Admin: 04/26/18 09:00 Dose: 5 mg Bismuth Subsalicylate (Pepto-Bismol) 262 mg PO BID [facility] Last Admin: 05/01/18 17:11 Dose: 262 mg Budesonide (Pulmicort Respules) 0.5 mg INH RQ12 [facility] Last Admin: 05/02/18 07:56 Dose: 0.5 mg Diltiazem HCl (Cardizem) 30 mg PO QID [facility] Last Admin: 04/30/18 18:00 Dose: Not Given Guaifenesin (Robitussin) 200 mg PO QID [facility] Last Admin: 05/01/18 21:07 Dose: 200 mg Hydromorphone HCl (Dilaudid) 1 mg IVP Q4H PRN PRN Reason: Pain, severe (8-10) Last Admin: 05/02/18 06:19 Dose: 1 mg Piperacillin Sod/Tazobactam Sod (Zosyn 3.375 Gm Iv Premix) 3.375 gm in 50 mls @ 100 mls/hr IVPB Q6H [facility] PRN Reason: Protocol Last Admin: 05/02/18 06:24 Dose: 100 mls/hr Metronidazole (Flagyl) 500 mg in 100 mls @ 100 mls/hr IVPB Q8H [facility] PRN Reason: Protocol Last Admin: 05/02/18 01:21 Dose: 100 mls/hr Vancomycin/Sodium Chloride (Vancomycin 1 Gm/Ns 200 Ml) 1 gm in 200 mls @ 166.6 mls/hr IVPB Q12H [facility] PRN Reason: Protocol Stop: 05/04/18 11:31 Last Admin: 05/01/18 22:35 Dose: 166.6 mls/hr Ferric Sodium Gluconate Complex 125 mg/ Sodium Chloride 110 mls @ 110 mls/hr IVPB Q24H [facility] Stop: 05/07/18 20:01 Last Admin: 05/01/18 20:03 Dose: 110 mls/hr Sodium Chloride (Sodium Chloride 0.9%) 1,000 mls @ 150 mls/hr IV .Q6H40M [facility] Last Admin: 05/02/18 06:33 Dose: Not Given Insulin Human Regular (Novolin R) 0 unit SC Q6 [facility] PRN Reason: Protocol Last Admin: 05/02/18 06:17 Dose: Not Given Methylprednisolone (Solu-Medrol) 40 mg IVP Q12 [facility] Last Admin: 05/01/18 21:06 Dose: 40 mg Metoprolol Tartrate (Lopressor) 5 mg IVP Q6H [facility] Last Admin: 05/02/18 04:00 Dose: 5 mg Morphine Sulfate (Morphine) 2 mg IVP Q4H PRN PRN Reason: Pain, moderate (4-7) Last Admin: 05/02/18 07:58 Dose: 2 mg Multivitamins (Hexavitamin) 1 tab PO DAILY [facility] Last Admin: 05/01/18 09:23 Dose: Not Given Pantoprazole Sodium (Protonix Inj) 40 mg IVP DAILY [facility] Last Admin: 05/01/18 09:22 Dose: 40 mg Pregabalin (Lyrica) 75 mg PO BID [facility] Last Admin: 05/01/18 17:13 Dose: 75 mg Roflumilast (Daliresp) 500 mcg PO DAILY [facility] Last Admin: 05/01/18 09:23 Dose: Not Given Fluticasone/Salmeterol (Advair Diskus 250/50) 1 puff IH RQ12 [facility] Last Admin: 05/01/18 19:40 Dose: 1 puff Simethicone (Mylicon Chew Tab) 80 mg PO TID PRN PRN Reason: GI distress - Labs Labs: 05/01/18 05:58 05/01/18 05:58 PT 11.1 SECONDS (9.7-12.2) 04/25/18 18:21 INR 1.0 04/25/18 18:21 APTT 31 SECONDS (21-34) 04/25/18 18:21 - Constitutional Appears: Non-toxic, No Acute Distress - Head Exam Head Exam: ATRAUMATIC, NORMAL INSPECTION, NORMOCEPHALIC - Eye Exam Eye Exam: EOMI, Normal appearance - ENT Exam ENT Exam: Mucous Membranes Moist, Normal Exam - Neck Exam Neck Exam: Full ROM, Normal Inspection - Respiratory Exam Respiratory Exam: NORMAL BREATHING PATTERN. absent: Rales, Rhonchi, Wheezes Additional comments: On Bipap and O2 - Cardiovascular Exam Cardiovascular Exam: REGULAR RHYTHM, +S1, +S2 - GI/Abdominal Exam GI & Abdominal Exam: Soft, Tenderness (diffuse, more over RLQ incision site). absent: Distended, Firm, Guarding Additional comments: Dressing removed, Betadine soaked packing placed into incision, new dressing placed - Extremities Exam Extremities Exam: Normal Inspection - Neurological Exam Neurological Exam: Alert, Awake, CN II-XII Intact, Oriented x3 - Psychiatric Exam Psychiatric exam: Normal Affect, Normal Mood - Skin Skin Exam: Dry, Normal Color, Warm Assessment and Plan - Assessment and Plan (Free Text) Assessment: 68M POD#2 s/p ileostomy reversal, ileocecal anastomosis Plan: Cont Calderon catheter OK for PO meds Cont NPO IVF IV Abx Pain control PRN OOBTC Ambulate Further mgmt as per primary team Will ALEJANDRA Hanna, PGY-2
[2018-05-02] MEDS ORDERED: oxyCODONE 5 mg Immediate Release Tab PO PRN (08:12)
[2018-05-02] MEDS: Multiple Vitamins Tab PO SCH (09:51)
[2018-05-02] MEDS: Bismuth Subsalicylate 262 mg/15 ml Sus (240 ml) PO SCH ×2 (09:52→17:35)
[2018-05-02] MEDS: MethylPREDNISolone 40 mg Vial IVP SCH ×2 (09:53→21:11)
[2018-05-02] MEDS: Potassium Ch 20mEq in D5-1/2NS 1,000 ML IV SCH ×2 (10:02→19:23)
[2018-05-02] MEDS: guaiFENesin 100 mg/5 ml Syrup UD PO SCH ×4 (10:10→21:11)
[2018-05-02] MEDS: Fluticasone-Salmeterol 250-50mcg Diskus IH SCH ×2 (10:43→19:42)
[2018-05-02 11:11] LABS: BASO % 0.3 % (0.0-2.0); EOS % 0.2 % (0.0-4.0); HEMOGLOBIN 9.2 g/dL (12.0-18.0); LYMPH # 0.8 K/uL (1.0-4.3); LYMPH % 7.1 % (20.0-40.0); MEAN CELL VOLUME 68.6 fL (80.0-94.0); MONO # 0.7 K/uL (0.0-0.8); NEUT # 10.2 K/uL (1.8-7.0); NEUT % 86.4 % (50.0-75.0); NRBC % 0.1 % (0.0-2.0); PLATELET COUNT 289 K/uL (130-400); RBC 4.17 Mil/uL (4.40-5.90); RED CELL DISTRIBUTION WIDTH 19.2 % (11.5-14.5); WHITE BLOOD COUNT 11.8 K/uL (4.8-10.8)
[2018-05-02 11:27] LABS: ALB/GLOB RATIO 1.3 (1.0-2.1); ALBUMIN 3.1 g/dL (3.5-5.0); ALT/SGPT 60 U/L (21-72); AST/SGOT 37 U/L (17-59); BLOOD UREA NITROGEN 10 mg/dL (9-20); CALCIUM 8.2 mg/dl (8.6-10.4); GFR NON-AFRICAN AMERICAN > 60
[2018-05-02] MEDS: Vancomycin 1 gm/NS 200 ml 1 GM/200 ML BAG IVPB SCH (11:32)
[2018-05-02] MEDS: oxyCODONE 10 mg Immediate Release Tab PO PRN (11:35)
[2018-05-02 11:48] LABS: BANDS 1 % (0-2); LYMPHOCYTE 7 % (20-40); MONOCYTE 6 % (0-10); NEUTROPHIL 86 % (50-75); PLATELET ESTIMATE NORMAL (NORMAL); TOTAL CELLS COUNTED 100
[2018-05-02 11:49] LABS: ANISOCYTOSIS MODERATE; HYPOCHROMIC MODERATE; OVALOCYTES MODERATE; POIKILOCYTOSIS SLIGHT
--- NOTE | 2018-05-02 12:32 | PN ---
DATE: 05/02/2018 SUBJECTIVE: The patient is status post OR. The patient is afebrile. Postop, he is feeling better. He is more alert. PHYSICAL EXAMINATION: VITAL SIGNS: BP 118/69, pulse 97, respiratory rate is 20, temperature 99. LUNGS: Clear. Decreased air entry. CARDIOVASCULAR SYSTEM: S1 and S2 regular. ABDOMEN: Soft. ASSESSMENT: 1. Status post colostomy surgery. 2. Dehydration. 3. Steroid-induced diabetes. 4. Chronic obstructive pulmonary disease. PLAN: Medical management. Monitor the patient. Hal Garcia MD
--- NOTE | 2018-05-02 17:50 | CP.PCM.PN ---
Subjective - Date & Time of Evaluation Date of Evaluation: 05/02/18 Time of Evaluation: 09:00 - Subjective Subjective: patient seen and examined Denies shortness of breath Patient is off BiPAP Complaining of abdominal pain Wants to eat Objective - Vital Signs/Intake and Output Vital Signs (last 24 hours): Temp Pulse Resp BP Pulse Ox 98.1 F 96 H 11 L 119/71 100 05/01/18 12:00 05/02/18 08:51 05/02/18 00:00 05/02/18 17:36 05/02/18 08:17 Intake and Output: 05/02/18 05/02/18 06:59 18:59 Intake Total 2170 600 Output Total 1280 1200 Balance 890 -600 - Medications Medications: Current Medications Albuterol (Ventolin Hfa 90 Mcg/Actuation (8 G)) 1 puff INH RQ6 PRN PRN Reason: Shortness of Breath Albuterol/Ipratropium (Duoneb 3 Mg/0.5 Mg (3 Ml) Ud) 3 ml INH RQ6 [facility] Last Admin: 05/02/18 13:33 Dose: 3 ml Alprazolam (Xanax) 0.5 mg PO Q12 [facility] Last Admin: 05/02/18 10:12 Dose: 0.5 mg Apixaban (Eliquis) 5 mg PO BID [facility] Last Admin: 04/26/18 09:00 Dose: 5 mg Bismuth Subsalicylate (Pepto-Bismol) 262 mg PO BID [facility] Last Admin: 05/02/18 17:35 Dose: 262 mg Budesonide (Pulmicort Respules) 0.5 mg INH RQ12 [facility] Last Admin: 05/02/18 07:56 Dose: 0.5 mg Diltiazem HCl (Cardizem) 30 mg PO QID [facility] Last Admin: 05/02/18 17:36 Dose: 30 mg Guaifenesin (Robitussin) 200 mg PO QID [facility] Last Admin: 05/02/18 17:33 Dose: 200 mg Piperacillin Sod/Tazobactam Sod (Zosyn 3.375 Gm Iv Premix) 3.375 gm in 50 mls @ 100 mls/hr IVPB Q6H [facility] PRN Reason: Protocol Last Admin: 05/02/18 14:28 Dose: 100 mls/hr Metronidazole (Flagyl) 500 mg in 100 mls @ 100 mls/hr IVPB Q8H [facility] PRN Reason: Protocol Last Admin: 05/02/18 17:31 Dose: 100 mls/hr Vancomycin/Sodium Chloride (Vancomycin 1 Gm/Ns 200 Ml) 1 gm in 200 mls @ 166.6 mls/hr IVPB Q12H [facility] PRN Reason: Protocol Stop: 05/04/18 11:31 Last Admin: 05/02/18 11:32 Dose: 166.6 mls/hr Ferric Sodium Gluconate Complex 125 mg/ Sodium Chloride 110 mls @ 110 mls/hr IVPB Q24H [facility] Stop: 05/07/18 20:01 Last Admin: 05/01/18 20:03 Dose: 110 mls/hr Potassium Chloride/Dextrose/Sod Cl (Potassium Chl 20 Meq In D5-1/2ns) 1,000 mls @ 100 mls/hr IV .Q10H [facility] Last Admin: 05/02/18 10:02 Dose: 100 mls/hr Insulin Human Regular (Novolin R) 0 unit SC Q6 [facility] PRN Reason: Protocol Last Admin: 05/02/18 12:33 Dose: Not Given Methylprednisolone (Solu-Medrol) 40 mg IVP Q12 [facility] Last Admin: 05/02/18 09:53 Dose: 40 mg Metoprolol Tartrate (Lopressor) 25 mg PO BID [facility] Last Admin: 05/02/18 17:36 Dose: 25 mg Morphine Sulfate (Morphine) 2 mg IVP Q4H PRN PRN Reason: Pain, moderate (4-7) Last Admin: 05/02/18 17:40 Dose: 2 mg Multivitamins (Hexavitamin) 1 tab PO DAILY [facility] Last Admin: 05/02/18 09:51 Dose: 1 tab Oxycodone HCl (Oxycodone Immediate Release Tab) 5 mg PO Q6 PRN PRN Reason: Pain, moderate (4-7) Oxycodone HCl (Oxycodone Immediate Release Tab) 10 mg PO Q6 PRN PRN Reason: Pain, severe (8-10) Last Admin: 05/02/18 11:35 Dose: 10 mg Pantoprazole Sodium (Protonix Inj) 40 mg IVP DAILY [facility] Last Admin: 05/02/18 09:51 Dose: 40 mg Pregabalin (Lyrica) 75 mg PO BID [facility] Last Admin: 05/02/18 17:33 Dose: 75 mg Roflumilast (Daliresp) 500 mcg PO DAILY [facility] Last Admin: 05/02/18 09:51 Dose: 500 mcg Fluticasone/Salmeterol (Advair Diskus 250/50) 1 puff IH RQ12 [facility] Last Admin: 05/02/18 10:43 Dose: 1 puff Simethicone (Mylicon Chew Tab) 80 mg PO TID PRN PRN Reason: GI distress - Labs Labs: 05/02/18 11:00 05/02/18 11:00 PT 11.1 SECONDS (9.7-12.2) 04/25/18 18:21 INR 1.0 04/25/18 18:21 APTT 31 SECONDS (21-34) 04/25/18 18:21 - Head Exam Head Exam: ATRAUMATIC, NORMOCEPHALIC - ENT Exam ENT Exam: Mucous Membranes Moist - Neck Exam Neck Exam: Normal Inspection - Respiratory Exam Respiratory Exam: Decreased Breath Sounds Assessment and Plan (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
--- NOTE | 2018-05-02 18:29 | PN ---
DATE: 05/02/2018 SUBJECTIVE: The patient is transferred to telemetry. He denies chest pain. He is still kept n.p.o. except for meds. PHYSICAL EXAMINATION: VITAL SIGNS: Blood pressure 135/76, heart rate 96, respirations 11, and temperature 98.2. HEENT: Normocephalic. CHEST: Minimal rhonchi. HEART: S1 and S2 regular. ABDOMEN: Absent bowel sounds. EXTREMITIES: No edema. LABORATORY DATA: Hemoglobin and hematocrit 9.2 and 28.6, white count 11.8, and platelet count 289,000. Today's SMA-7; sodium 137, potassium 3.3, chloride 100, CO2 of 30, glucose 87, BUN 10, and creatinine 0.5. ASSESSMENT: 1. Status post ileostomy reversal and appendectomy. 2. Chronic obstructive lung disease. 3. History of recent deep vein thrombosis and pulmonary embolism. 4. Sinus tachycardia. 5. Hypertension. 6. Mild anemia. RECOMMENDATIONS: Cardizem 30 mg four times a day orally was resumed. Continue IV Flagyl 500 mg every 8 hours. Start Lopressor 25 mg orally twice a day and 20 mEq of IV potassium replacement is being supplemented now. Continue Solu-Medrol 40 mg intravenously twice a day, vancomycin 1 g intravenously every 12 hours, and Zosyn 3.375 mg intravenously every 6 hours. Consider restarting Eliquis therapy if cleared by Dr. Nieto. Mukesh Correia MD
[2018-05-02] MEDS: Ferric Sodium Gluconat Complex 125 MG in Sodium Chloride 0.9% 100 ML IVPB SCH (19:51)
--- NOTE | 2018-05-02 22:11 | CP.PCM.PN ---
Objective - Vital Signs/Intake and Output Vital Signs (last 24 hours): Temp Pulse Resp BP Pulse Ox 98.1 F 82 11 L 119/71 100 05/01/18 12:00 05/02/18 18:00 05/02/18 00:00 05/02/18 17:36 05/02/18 08:17 Intake and Output: 05/02/18 05/03/18 18:59 06:59 Intake Total 600 Output Total 1200 Balance -600 - Medications Medications: Current Medications Albuterol (Ventolin Hfa 90 Mcg/Actuation (8 G)) 1 puff INH RQ6 PRN PRN Reason: Shortness of Breath Albuterol/Ipratropium (Duoneb 3 Mg/0.5 Mg (3 Ml) Ud) 3 ml INH RQ6 [facility] Last Admin: 05/02/18 19:19 Dose: 3 ml Alprazolam (Xanax) 0.5 mg PO Q12 [facility] Last Admin: 05/02/18 21:11 Dose: 0.5 mg Apixaban (Eliquis) 5 mg PO BID [facility] Last Admin: 04/26/18 09:00 Dose: 5 mg Bismuth Subsalicylate (Pepto-Bismol) 262 mg PO BID [facility] Last Admin: 05/02/18 17:35 Dose: 262 mg Budesonide (Pulmicort Respules) 0.5 mg INH RQ12 [facility] Last Admin: 05/02/18 19:19 Dose: 0.5 mg Diltiazem HCl (Cardizem) 30 mg PO QID [facility] Last Admin: 05/02/18 21:11 Dose: 30 mg Guaifenesin (Robitussin) 200 mg PO QID [facility] Last Admin: 05/02/18 21:11 Dose: 200 mg Piperacillin Sod/Tazobactam Sod (Zosyn 3.375 Gm Iv Premix) 3.375 gm in 50 mls @ 100 mls/hr IVPB Q6H [facility] PRN Reason: Protocol Last Admin: 05/02/18 19:21 Dose: 100 mls/hr Metronidazole (Flagyl) 500 mg in 100 mls @ 100 mls/hr IVPB Q8H [facility] PRN Reason: Protocol Last Admin: 05/02/18 17:31 Dose: 100 mls/hr Vancomycin/Sodium Chloride (Vancomycin 1 Gm/Ns 200 Ml) 1 gm in 200 mls @ 166.6 mls/hr IVPB Q12H [facility] PRN Reason: Protocol Stop: 05/04/18 11:31 Last Admin: 05/02/18 11:32 Dose: 166.6 mls/hr Ferric Sodium Gluconate Complex 125 mg/ Sodium Chloride 110 mls @ 110 mls/hr IVPB Q24H [facility] Stop: 05/07/18 20:01 Last Admin: 05/02/18 19:51 Dose: 110 mls/hr Potassium Chloride/Dextrose/Sod Cl (Potassium Chl 20 Meq In D5-1/2ns) 1,000 mls @ 100 mls/hr IV .Q10H [facility] Last Admin: 05/02/18 19:23 Dose: Not Given Potassium Chloride (Potassium Chloride 20 Meq/100 Ml) 20 meq in 100 mls @ 50 mls/hr IVPB ONCE ONE Stop: 05/03/18 00:09 Insulin Human Regular (Novolin R) 0 unit SC Q6 [facility] PRN Reason: Protocol Last Admin: 05/02/18 18:42 Dose: Not Given Methylprednisolone (Solu-Medrol) 40 mg IVP Q12 [facility] Last Admin: 05/02/18 21:11 Dose: 40 mg Metoprolol Tartrate (Lopressor) 25 mg PO BID [facility] Last Admin: 05/02/18 17:36 Dose: 25 mg Morphine Sulfate (Morphine) 2 mg IVP Q4H PRN PRN Reason: Pain, moderate (4-7) Last Admin: 05/02/18 17:40 Dose: 2 mg Multivitamins (Hexavitamin) 1 tab PO DAILY [facility] Last Admin: 05/02/18 09:51 Dose: 1 tab Oxycodone HCl (Oxycodone Immediate Release Tab) 5 mg PO Q6 PRN PRN Reason: Pain, moderate (4-7) Oxycodone HCl (Oxycodone Immediate Release Tab) 10 mg PO Q6 PRN PRN Reason: Pain, severe (8-10) Last Admin: 05/02/18 11:35 Dose: 10 mg Pantoprazole Sodium (Protonix Inj) 40 mg IVP DAILY [facility] Last Admin: 05/02/18 09:51 Dose: 40 mg Pregabalin (Lyrica) 75 mg PO BID [facility] Last Admin: 05/02/18 17:33 Dose: 75 mg Roflumilast (Daliresp) 500 mcg PO DAILY [facility] Last Admin: 05/02/18 09:51 Dose: 500 mcg Fluticasone/Salmeterol (Advair Diskus 250/50) 1 puff IH RQ12 [facility] Last Admin: 05/02/18 19:42 Dose: 1 puff Simethicone (Mylicon Chew Tab) 80 mg PO TID PRN PRN Reason: GI distress - Labs Labs: 05/02/18 11:00 05/02/18 11:00 PT 11.1 SECONDS (9.7-12.2) 04/25/18 18:21 INR 1.0 04/25/18 18:21 APTT 31 SECONDS (21-34) 04/25/18 18:21 Assessment and Plan (1) COPD exacerbation Status: Acute (2) Abdominal pain Status: Acute (3) Colostomy complication Status: Chronic (4) Pulmonary embolism Status: Chronic (5) Tachyarrhythmia Status: Acute
[2018-05-03] MEDS: Vancomycin 1 gm/NS 200 ml 1 GM/200 ML BAG IVPB SCH ×3 (00:20→22:31)
[2018-05-03] MEDS: (Novolin R) Insulin Human Regular 100 units/ml vial SC SCH ×4 (00:36→17:48)
[2018-05-03] MEDS: Piperacill/Tazo 3.375gm in Dex 3.375 GM/50 ML BAG IVPB SCH ×4 (01:44→19:11)
[2018-05-03] MEDS: Morphine 4 MG/ML VIAL IVP PRN ×5 (02:00→19:16)
[2018-05-03] MEDS: Albuterol-Ipratrop 3 mg / 0.5 (3 ml) UD INH SCH ×4 (02:31→19:07)
[2018-05-03] MEDS: metroNIDAZOLE IV 500 mg/100 ml 500 MG/100 ML BAG IVPB SCH ×3 (03:00→17:44)
--- NOTE | 2018-05-03 03:36 | PN ---
DATE: 05/02/2018 SUBJECTIVE: The patient is out of ICU. Feeling better. He is more alert. He is extubated. No nausea or vomiting. He has some abdominal pain. PHYSICAL EXAMINATION: VITAL SIGNS: Blood pressure is 124/77, pulse 52, respiratory rate 18, temperature 98.2. LUNGS: Clear. Decreased air entry. CARDIOVASCULAR SYSTEM: S1 and S2, regular. ABDOMEN: Postop. ASSESSMENT: 1. Exacerbation of chronic obstructive pulmonary disease. 2. Prolapsed colostomy, status post OR. PLAN: Continue current medications. Monitor the patient. Cut down the patient's steroids. Continue oxygen and antibiotics. Hal Garcia MD
[2018-05-03] MEDS: Potassium Ch 20mEq in D5-1/2NS 1,000 ML IV SCH ×2 (04:13→13:49)
[2018-05-03] MEDS: Budesonide 0.5 mg/2 ml Inhal Susp UD INH SCH ×2 (07:55→19:07)
[2018-05-03] MEDS: Fluticasone-Salmeterol 250-50mcg Diskus IH SCH ×2 (07:55→19:06)
--- NOTE | 2018-05-03 08:55 | CP.PCM.PN ---
Subjective - Date & Time of Evaluation Date of Evaluation: 05/03/18 Time of Evaluation: 08:53 - Subjective Subjective: General surgery progress note for Dr. Barak Hanna, PGY-2 Pt S & E at bedside at 0740 Pt reports ab bloating improved. Continues with ab pain. Denies N & V, F & C, flatus, BM. Objective - Vital Signs/Intake and Output Vital Signs (last 24 hours): Temp Pulse Resp BP Pulse Ox 98.2 F 96 H 16 143/78 100 05/03/18 08:00 05/03/18 08:21 05/03/18 08:00 05/03/18 08:00 05/03/18 08:00 Intake and Output: 05/03/18 05/03/18 06:59 18:59 Intake Total 1850 Output Total 2600 Balance -750 - Medications Medications: Current Medications Albuterol (Ventolin Hfa 90 Mcg/Actuation (8 G)) 1 puff INH RQ6 PRN PRN Reason: Shortness of Breath Albuterol/Ipratropium (Duoneb 3 Mg/0.5 Mg (3 Ml) Ud) 3 ml INH RQ6 [facility] Last Admin: 05/03/18 07:55 Dose: 3 ml Alprazolam (Xanax) 0.5 mg PO Q12 [facility] Last Admin: 05/02/18 21:11 Dose: 0.5 mg Apixaban (Eliquis) 5 mg PO BID [facility] Last Admin: 04/26/18 09:00 Dose: 5 mg Bismuth Subsalicylate (Pepto-Bismol) 262 mg PO BID [facility] Last Admin: 05/02/18 17:35 Dose: 262 mg Budesonide (Pulmicort Respules) 0.5 mg INH RQ12 [facility] Last Admin: 05/03/18 07:55 Dose: 0.5 mg Diltiazem HCl (Cardizem) 30 mg PO QID [facility] Last Admin: 05/02/18 21:11 Dose: 30 mg Guaifenesin (Robitussin) 200 mg PO QID [facility] Last Admin: 05/02/18 21:11 Dose: 200 mg Piperacillin Sod/Tazobactam Sod (Zosyn 3.375 Gm Iv Premix) 3.375 gm in 50 mls @ 100 mls/hr IVPB Q6H [facility] PRN Reason: Protocol Last Admin: 05/03/18 06:16 Dose: 100 mls/hr Metronidazole (Flagyl) 500 mg in 100 mls @ 100 mls/hr IVPB Q8H [facility] PRN Reason: Protocol Last Admin: 05/03/18 03:00 Dose: 100 mls/hr Vancomycin/Sodium Chloride (Vancomycin 1 Gm/Ns 200 Ml) 1 gm in 200 mls @ 166.6 mls/hr IVPB Q12H [facility] PRN Reason: Protocol Stop: 05/04/18 11:31 Last Admin: 05/03/18 00:20 Dose: 166.6 mls/hr Ferric Sodium Gluconate Complex 125 mg/ Sodium Chloride 110 mls @ 110 mls/hr IVPB Q24H [facility] Stop: 05/07/18 20:01 Last Admin: 05/02/18 19:51 Dose: 110 mls/hr Potassium Chloride/Dextrose/Sod Cl (Potassium Chl 20 Meq In D5-1/2ns) 1,000 mls @ 100 mls/hr IV .Q10H [facility] Last Admin: 05/03/18 04:13 Dose: 100 mls/hr Insulin Human Regular (Novolin R) 0 unit SC Q6 [facility] PRN Reason: Protocol Last Admin: 05/03/18 06:47 Dose: 2 unit Methylprednisolone (Solu-Medrol) 40 mg IVP DAILY [facility] Metoprolol Tartrate (Lopressor) 25 mg PO BID [facility] Last Admin: 05/02/18 17:36 Dose: 25 mg Morphine Sulfate (Morphine) 2 mg IVP Q4H PRN PRN Reason: Pain, moderate (4-7) Last Admin: 05/03/18 06:12 Dose: 2 mg Multivitamins (Hexavitamin) 1 tab PO DAILY [facility] Last Admin: 05/02/18 09:51 Dose: 1 tab Oxycodone HCl (Oxycodone Immediate Release Tab) 5 mg PO Q6 PRN PRN Reason: Pain, moderate (4-7) Oxycodone HCl (Oxycodone Immediate Release Tab) 10 mg PO Q6 PRN PRN Reason: Pain, severe (8-10) Last Admin: 05/02/18 11:35 Dose: 10 mg Pantoprazole Sodium (Protonix Inj) 40 mg IVP DAILY [facility] Last Admin: 05/02/18 09:51 Dose: 40 mg Pregabalin (Lyrica) 75 mg PO BID [facility] Last Admin: 05/02/18 17:33 Dose: 75 mg Roflumilast (Daliresp) 500 mcg PO DAILY [facility] Last Admin: 05/02/18 09:51 Dose: 500 mcg Fluticasone/Salmeterol (Advair Diskus 250/50) 1 puff IH RQ12 [facility] Last Admin: 05/03/18 07:55 Dose: 1 puff Simethicone (Mylicon Chew Tab) 80 mg PO TID PRN PRN Reason: GI distress - Labs Labs: 05/02/18 11:00 05/02/18 11:00 PT 11.1 SECONDS (9.7-12.2) 04/25/18 18:21 INR 1.0 04/25/18 18:21 APTT 31 SECONDS (21-34) 04/25/18 18:21 - Constitutional Appears: Non-toxic, No Acute Distress - Head Exam Head Exam: ATRAUMATIC, NORMAL INSPECTION, NORMOCEPHALIC - Eye Exam Eye Exam: EOMI, Normal appearance - ENT Exam ENT Exam: Mucous Membranes Moist, Normal Exam - Neck Exam Neck Exam: Full ROM, Normal Inspection - Respiratory Exam Respiratory Exam: NORMAL BREATHING PATTERN - GI/Abdominal Exam GI & Abdominal Exam: Distended (but soft), Soft, Tenderness (over RLQ incision site). absent: Guarding, Rigid Additional comments: incision with kiran in place- packing removed No erythema or purulent drainage noted - Extremities Exam Extremities Exam: Normal Inspection - Neurological Exam Neurological Exam: Alert, Awake, CN II-XII Intact, Oriented x3 - Psychiatric Exam Psychiatric exam: Normal Affect, Normal Mood - Skin Skin Exam: Dry, Intact, Normal Color, Warm Assessment and Plan - Assessment and Plan (Free Text) Assessment: 68M POD#3 s/p ileostomy reversal, ileocecal anastomosis Plan: Dressing changed today D/C Calderon catheter Void trial OK for PO meds CLD ok IVF IV Abx Pain control PRN OOBTC Ambulate with assistance Further mgmt as per primary team Will ALEJANDRA Hanna, PGY-2
[2018-05-03] MEDS: guaiFENesin 100 mg/5 ml Syrup UD PO SCH ×4 (09:17→21:00)
[2018-05-03] MEDS: Bismuth Subsalicylate 262 mg/15 ml Sus (240 ml) PO SCH ×2 (09:18→17:40)
[2018-05-03] MEDS: Multiple Vitamins Tab PO SCH (09:18)
[2018-05-03] MEDS: MethylPREDNISolone 40 mg Vial IVP SCH (09:41)
--- NOTE | 2018-05-03 10:59 | CP.PCM.CON ---
History of Present Illness - History of Present Illness History of Present Illness: palliative consult requested by Doctor Nuno for goals of care discussion Patient is a 68 yo male, admitted with complaints of SOB which begun on the day of admission. In addition, patient had nonproductive cough X 2 weeks. patient reports o2 and Neb Tx did not improve his symptoms of SOB. En route to ED patient was given Duoneb with relief. Patient also complained of pain to Illeostomy site. Patient reports fallowing up with his surgeon 3 days prior the admission ; no interventions were recommended at that time. Diagnose of prolapsed ileostmy was established on this admission and on 04/30/18 patient underwent surgical closure of stoma. On one of past admissions I discussed goals of care with this patient and his family and they chose DNR/DNi status. Per ICU nurse, patient reports changing his mind and requesting Full Code. Palliative care was called to discuss Code status again PMH; S/P rctosigmoidectomy with ileostomy creation, COPD,CHF,HTN Soc. Hx: quit smoking 1.5 year ago, , lives at home Fam. hx: denied Review of Systems - Constitutional Constitutional: Weakness - EENT Eyes: absent: As Per HPI, Blind Spots, Blurred Vision, Change in Vision, Decreased Night Vision, Diplopia, Discharge, Dry Eye, Exophthalmos, Floaters, Irritation, Itchy Eyes, Loss of Peripheral Vision, Pain, Photophobia, Requires Corrective Lenses, Sees Flashes, Spots in Vision, Tunnel Vision, Other Visual Disturbances, Loss of Vision, Other Ears: absent: As Per HPI, Decreased Hearing, Ear Discharge, Ear Pain, Tinnitus, Abnormal Hearing, Disequilibrium, Dizziness, Other Nose/Mouth/Throat: absent: As Per HPI, Epistaxis, Nasal Congestion, Nasal Discharge, Nasal Obstruction, Nasal Trauma, Nose Pain, Post Nasal Drip, Sinus Pain, Sinus Pressure, Bleeding Gums, Change in Voice, Dental Pain, Dry Mouth, Dysphagia, Halitosis, Hoarsness, Lip Swelling, Mouth Lesions, Mouth Pain, Odynophagia, Sore Throat, Throat Swelling, Tongue Swelling, Facial Pain, Neck Pain, Neck Mass, Other - Cardiovascular Cardiovascular: absent: As Per HPI, Acrocyanosis, Chest Pain, Chest Pain at Rest , Chest Pain with Activity, Claudication, Diaphoresis, Dyspnea, Dyspnea on Exertion, Edema, Irregular Heart Rhythm, Pain Radiating to Arm/Neck/Jaw, Leg Edema, Leg Ulcers, Lightheadedness, Orthopnea, Palpitations, Paroxysmal Nocturnal Dyspnea, Pedal Edema, Radiating Pain, Rapid Heart Rate, Slow Heart Rate, Syncope, Other - Respiratory Respiratory: absent: As Per HPI, Cough, Dyspnea, Hemoptysis, Dyspnea on Exertion , Wheezing, Snoring, Stridor, Pain on Inspiration, Chest Congestion, Excessive Mucous Production, Change in Mucous Color, Pain with Coughing, Other - Gastrointestinal Gastrointestinal: Constipation - Genitourinary Genitourinary: Difficulty Urinating - Musculoskeletal Musculoskeletal: Muscle Weakness - Integumentary Integumentary: Wounds - Neurological Neurological: absent: As Per HPI, Abnormal Gait, Abnormal Hearing, Abnormal Movements, Abnormal Speech, Behavioral Changes, Burning Sensations, Confusion, Convulsions, Disequilibrium, Dizziness, Numbness, Focal Weakness, Frequent Falls , Headaches, Lack of Coordination, Loss of Vision, Memory Loss, Paresthesias, Radicular Pain, Restless Legs, Sensory Deficit, Syncope, Tingling, Tremor, Vertigo, Weakness, Other Visual Disturbances, Other - Psychiatric Psychiatric: absent: As Per HPI, Abnormal Sleep Pattern, Anhedonia, Anxiety, Auditory Hallucinations, Behavioral Changes, Change in Appetite, Change in Libido, Confusion, Depression, Difficulty Concentrating, Hallucinations, Homicidal Ideation, Hopelessness, Irritability, Memory Loss, Mood Swings, Panic Attacks, Paranoia, Suicidal Ideation, Visual Hallucinations, Tactile Hallucinations, Other - Endocrine Endocrine: absent: As Per HPI, Change in Body Appearance, Change in Libido, Cold Intolorance, Deepening of Voice, Excessive Sweating, Fatigue, Flushing, Heat Intolorance, Increase in Ring/Shoe/Hat Size, Palpitations, Polydipsia, Polyphagia, Polyuria, Other - Hematologic/Lymphatic Hematologic: absent: As Per HPI, Easy Bleeding, Easy Bruising, Lymphadenopathy, Other Past Patient History - Infectious Disease Hx of Infectious Diseases: None - Past Medical History & Family History Past Medical History?: Yes - Past Social History Smoking Status: Former Smoker - CARDIAC Hx Cardiac Disorders: Yes Hx Cardia Arrhythmia: Yes (SVT) Hx Congestive Heart Failure: Yes Hx Hypercholesterolemia: Yes Hx Hypertension: Yes - PULMONARY Hx Respiratory Disorders: Yes Hx Asthma: Yes Hx Bronchitis: Yes Hx Chronic Obstructive Pulmonary Disease (COPD): Yes Hx Emphysema: Yes Hx Pneumonia: Yes Hx Sleep Apnea: Yes (ON DALIRESP) - NEUROLOGICAL Hx Neurological Disorder: No HX Cerebrovascular Accident: No - HEENT Hx HEENT Problems: Yes Hx Cataracts: Yes - RENAL Hx Chronic Kidney Disease: Yes Hx Kidney Stones: Yes - ENDOCRINE/METABOLIC Hx Endocrine Disorders: Yes Hx Diabetes Mellitus Type 2: Yes - HEMATOLOGICAL/ONCOLOGICAL Hx Blood Disorders: Yes Hx Anemia: Yes - INTEGUMENTARY Hx Dermatological Problems: Yes (SEE COMMENT) Other/Comment: Scattered ecchymosis on both arms. - MUSCULOSKELETAL/RHEUMATOLOGICAL Hx Falls: No - GASTROINTESTINAL Hx Gastrointestinal Disorders: No Hx Gastritis: No - GENITOURINARY/GYNECOLOGICAL Hx Genitourinary Disorders: No - PSYCHIATRIC Hx Psychophysiologic Disorder: Yes Hx Anxiety: Yes Hx Substance Use: No - SURGICAL HISTORY Hx Surgeries: Yes (SEE COMMENT) Hx Cataract Extraction: Yes (left eye, right eye) Hx Cardiac Catheterization: Yes (11/2015) Hx Eye Surgery: Yes Hx Pulmonary Surgery: Yes Other/Comment: colon resection with right ileostomy - ANESTHESIA Hx Anesthesia: Yes Hx Anesthesia Reactions: No Hx Malignant Hyperthermia: No Meds Allergies/Adverse Reactions: Allergies Allergy/AdvReac Type Severity Reaction Status Date / Time acetaminophen [From Tylenol] Allergy RASH Verified 04/25/18 17:39 FISH Allergy SWELLING Verified 04/25/18 17:39 shrimp Allergy SHORTNESS Verified 04/25/18 17:39 OF BREATH IV dye Allergy Severe ANAPHYLAXIS Uncoded 04/25/18 17:39 - Medications Medications: Current Medications Albuterol (Ventolin Hfa 90 Mcg/Actuation (8 G)) 1 puff INH RQ6 PRN PRN Reason: Shortness of Breath Albuterol/Ipratropium (Duoneb 3 Mg/0.5 Mg (3 Ml) Ud) 3 ml INH RQ6 [facility] Last Admin: 05/03/18 07:55 Dose: 3 ml Alprazolam (Xanax) 0.5 mg PO Q12 [facility] Last Admin: 05/03/18 09:18 Dose: 0.5 mg Apixaban (Eliquis) 5 mg PO BID [facility] Last Admin: 04/26/18 09:00 Dose: 5 mg Bismuth Subsalicylate (Pepto-Bismol) 262 mg PO BID [facility] Last Admin: 05/03/18 09:18 Dose: 262 mg Budesonide (Pulmicort Respules) 0.5 mg INH RQ12 [facility] Last Admin: 05/03/18 07:55 Dose: 0.5 mg Diltiazem HCl (Cardizem) 30 mg PO QID [facility] Last Admin: 05/03/18 09:17 Dose: 30 mg Guaifenesin (Robitussin) 200 mg PO QID [facility] Last Admin: 05/03/18 09:17 Dose: 200 mg Piperacillin Sod/Tazobactam Sod (Zosyn 3.375 Gm Iv Premix) 3.375 gm in 50 mls @ 100 mls/hr IVPB Q6H [facility] PRN Reason: Protocol Last Admin: 05/03/18 06:16 Dose: 100 mls/hr Metronidazole (Flagyl) 500 mg in 100 mls @ 100 mls/hr IVPB Q8H [facility] PRN Reason: Protocol Last Admin: 05/03/18 09:16 Dose: 100 mls/hr Vancomycin/Sodium Chloride (Vancomycin 1 Gm/Ns 200 Ml) 1 gm in 200 mls @ 166.6 mls/hr IVPB Q12H [facility] PRN Reason: Protocol Stop: 05/04/18 11:31 Last Admin: 05/03/18 00:20 Dose: 166.6 mls/hr Ferric Sodium Gluconate Complex 125 mg/ Sodium Chloride 110 mls @ 110 mls/hr IVPB Q24H [facility] Stop: 05/07/18 20:01 Last Admin: 05/02/18 19:51 Dose: 110 mls/hr Potassium Chloride/Dextrose/Sod Cl (Potassium Chl 20 Meq In D5-1/2ns) 1,000 mls @ 100 mls/hr IV .Q10H [facility] Last Admin: 05/03/18 04:13 Dose: 100 mls/hr Insulin Human Regular (Novolin R) 0 unit SC Q6 [facility] PRN Reason: Protocol Last Admin: 05/03/18 06:47 Dose: 2 unit Methylprednisolone (Solu-Medrol) 40 mg IVP DAILY [facility] Last Admin: 05/03/18 09:41 Dose: 40 mg Metoprolol Tartrate (Lopressor) 25 mg PO BID [facility] Last Admin: 05/03/18 09:18 Dose: 25 mg Morphine Sulfate (Morphine) 2 mg IVP Q4H PRN PRN Reason: Pain, moderate (4-7) Last Admin: 05/03/18 10:45 Dose: 2 mg Multivitamins (Hexavitamin) 1 tab PO DAILY [facility] Last Admin: 05/03/18 09:18 Dose: 1 tab Oxycodone HCl (Oxycodone Immediate Release Tab) 5 mg PO Q6 PRN PRN Reason: Pain, moderate (4-7) Oxycodone HCl (Oxycodone Immediate Release Tab) 10 mg PO Q6 PRN PRN Reason: Pain, severe (8-10) Last Admin: 05/02/18 11:35 Dose: 10 mg Pantoprazole Sodium (Protonix Inj) 40 mg IVP DAILY [facility] Last Admin: 05/03/18 09:17 Dose: 40 mg Pregabalin (Lyrica) 75 mg PO BID [facility] Last Admin: 05/03/18 09:18 Dose: 75 mg Roflumilast (Daliresp) 500 mcg PO DAILY [facility] Last Admin: 05/03/18 09:17 Dose: 500 mcg Fluticasone/Salmeterol (Advair Diskus 250/50) 1 puff IH RQ12 [facility] Last Admin: 05/03/18 07:55 Dose: 1 puff Simethicone (Mylicon Chew Tab) 80 mg PO TID PRN PRN Reason: GI distress Physical Exam - Constitutional Appears: No Acute Distress, Chronically Ill - Head Exam Head Exam: ATRAUMATIC, NORMAL INSPECTION, NORMOCEPHALIC - Eye Exam Eye Exam: EOMI, Normal appearance, PERRL Pupil Exam: NORMAL ACCOMODATION, PERRL - ENT Exam ENT Exam: Mucous Membranes Moist, Normal Exam - Neck Exam Neck exam: Positive for: Normal Inspection - Respiratory Exam Respiratory Exam: Decreased Breath Sounds, Clear to Auscultation Bilateral, NORMAL BREATHING PATTERN - Cardiovascular Exam Cardiovascular Exam: Tachycardia, REGULAR RHYTHM - GI/Abdominal Exam GI & Abdominal Exam: Diminished Bowel Sounds Additional comments: Post ileostomy closure, no BM yet - Rectal Exam Rectal Exam: Deferred - Exam Additional comments: Post Calderon, no urine yet - Extremities Exam Extremities exam: Positive for: normal inspection - Back Exam Back exam: NORMAL INSPECTION - Neurological Exam Neurological exam: Alert, Oriented x3 - Psychiatric Exam Psychiatric exam: Normal Affect, Normal Mood - Skin Skin Exam: Dry, Normal Color, Warm Results - Vital Signs Recent Vital Signs: Last Vital Signs Temp 98.2 F 05/03/18 08:00 Pulse 81 09/21/18 09:10 Resp 16 05/03/18 08:00 BP 138/76 05/03/18 09:18 Pulse Ox 100 05/03/18 08:00 - Labs Result Diagrams: 05/02/18 11:00 05/02/18 11:00 Labs: Laboratory Results - last 24 hr 05/02/18 05/02/18 05/02/18 11:00 11:00 12:09 WBC 11.8 H RBC 4.17 L Hgb 9.2 L Hct 28.6 L MCV 68.6 L MCH 22.0 L MCHC 32.0 L RDW 19.2 H Plt Count 289 MPV 8.0 Neut % (Auto) 86.4 H Lymph % (Auto) 7.1 L [place] % (Auto) 6.0 Eos % (Auto) 0.2 Baso % (Auto) 0.3 Neut # (Auto) 10.2 H Lymph # (Auto) 0.8 L [place] # (Auto) 0.7 Eos # (Auto) 0.0 Baso # (Auto) 0.0 Neutrophils % (Manual) 86 H Band Neutrophils % 1 Lymphocytes % (Manual) 7 L Monocytes % (Manual) 6 Platelet Estimate Normal Hypochromasia (manual) Moderate Poikilocytosis (manual Slight Basophilic Stippling Slight Anisocytosis (manual) Moderate Ovalocytes Moderate Sodium 137 Potassium 3.3 L Chloride 100 Carbon Dioxide 30 Anion Gap 10 BUN 10 Creatinine 0.5 L Est GFR ( Amer) > 60 Est GFR (Non-Af Amer) > 60 POC Glucose (mg/dL) 91 Random Glucose 77 Calcium 8.2 L Phosphorus 1.7 L Magnesium 2.3 Total Bilirubin 0.6 AST 37 ALT 60 Alkaline Phosphatase 89 Total Protein 5.6 L Albumin 3.1 L Globulin 2.5 Albumin/Globulin Ratio 1.3 05/02/18 05/02/18 05/03/18 16:01 21:25 00:04 WBC RBC Hgb Hct MCV MCH MCHC RDW Plt Count MPV Neut % (Auto) Lymph % (Auto) [place] % (Auto) Eos % (Auto) Baso % (Auto) Neut # (Auto) Lymph # (Auto) [place] # (Auto) Eos # (Auto) Baso # (Auto) Neutrophils % (Manual) Band Neutrophils % Lymphocytes % (Manual) Monocytes % (Manual) Platelet Estimate Hypochromasia (manual) Poikilocytosis (manual Basophilic Stippling Anisocytosis (manual) Ovalocytes Sodium Potassium Chloride Carbon Dioxide Anion Gap BUN Creatinine Est GFR ( Amer) Est GFR (Non-Af Amer) POC Glucose (mg/dL) 136 H 113 H 162 H Random Glucose Calcium Phosphorus Magnesium Total Bilirubin AST ALT Alkaline Phosphatase Total Protein Albumin Globulin Albumin/Globulin Ratio 05/03/18 06:28 WBC RBC Hgb Hct MCV MCH MCHC RDW Plt Count MPV Neut % (Auto) Lymph % (Auto) [place] % (Auto) Eos % (Auto) Baso % (Auto) Neut # (Auto) Lymph # (Auto) [place] # (Auto) Eos # (Auto) Baso # (Auto) Neutrophils % (Manual) Band Neutrophils % Lymphocytes % (Manual) Monocytes % (Manual) Platelet Estimate Hypochromasia (manual) Poikilocytosis (manual Basophilic Stippling Anisocytosis (manual) Ovalocytes Sodium Potassium Chloride Carbon Dioxide Anion Gap BUN Creatinine Est GFR ( Amer) Est GFR (Non-Af Amer) POC Glucose (mg/dL) 210 H Random Glucose Calcium Phosphorus Magnesium Total Bilirubin AST ALT Alkaline Phosphatase Total Protein Albumin Globulin Albumin/Globulin Ratio Assessment & Plan - Assessment and Plan (Free Text) Assessment: Palliative consult I reviewed medical records, all diagnostic studies, examined and interviewed patient in the bed Code status Full Code, POLST on file indicates DNR/DNI, PPS 30% Patient examined in bed, alert, oriented X 3, [place]onian and Y[place]ut speaking. Patient admits to feeling weak and is anxious to get OOB and start moving. Breathing is normal, O2Sat 98 % RA. HR 96, ST. Denies SOB or chest pain. Abdomen is soft , tender to RLQ , post stoma closure. Bottom part of surgical wound is very sensitive to touch and looks like hematoma. Light yellow oozing noted on the dressing. Hypoactive bowel sounds. No BM yet since the surgical intervention. Patient is still NPO. IVF on. Calderon out this morning, no urine yet , bladder non distended. Patient moves freely all extremities. PT ordered. WBC 11.8, Hb 9.2, afebrile BP 139/97, HR 96 Flagyl, Zosyn and Vanco IV on board. Goals of care discussed with patient. He is anxious to start moving around. Patient understands that diet can not be advanced until bowels are more active and wants to get active with assistance from PT. Patient is aware of pain meds on hand and takes it as needed. His pain s well controlled on current pain meds regimen. Code status discussed. Patient recalls asking for DNR/DNI in the past. Today, patient states he ould want to undergo all aggressive treatment if i should be needed, to support his life. Patient wants his children and his to advocate for him if he losses decision making capacity. Impression * Chronically ill male * S/P colostomy reversal * BM absent since 04/30/18, most likely due to combination of Opioid use, limited mobility, NPO status and surgery. * Surgical pain * Difficulties urinating * Generalized weakness * Requesting Full Code and wants his and children to be his surrogate decision makers Suggestions * Would apply pressure dressing to surgical site, monitor for signs of bleeding * Continue Pain regimen as of present * Assist OOB to chair with PT * Ambulation as tolerated * Advance diet once patient passes flatus * Full Code Advance planing time 40 min
[2018-05-03 11:52] LABS: HEMOGLOBIN 9.1 g/dL (12.0-18.0); MEAN CELL VOLUME 67.5 fL (80.0-94.0); MEAN CORPUSCULAR HGB CONC 32.6 g/dL (33.0-37.0); MEAN PLATELET VOLUME 7.9 fL (7.2-11.7); RBC 4.12 Mil/uL (4.40-5.90); RED CELL DISTRIBUTION WIDTH 19.3 % (11.5-14.5); WHITE BLOOD COUNT 11.5 K/uL (4.8-10.8)
[2018-05-03 12:17] LABS: ALB/GLOB RATIO 1.2 (1.0-2.1); ALT/SGPT 51 U/L (21-72); AST/SGOT 22 U/L (17-59); BLOOD UREA NITROGEN 8 mg/dL (9-20); CALCIUM 8.6 mg/dl (8.6-10.4); GFR NON-AFRICAN AMERICAN > 60
--- NOTE | 2018-05-03 15:52 | PN ---
DATE: 05/03/2018 SUBJECTIVE: The patient denies any chest pain or shortness of breath. He had no bowel movement and has no flatus. PHYSICAL EXAMINATION: VITAL SIGNS: Blood pressure 138/76, heart rate 81, temperature 98.2, and respiration 16. HEENT: Normocephalic. CHEST: Mild rhonchi. HEART: S1 and S2 regular. ABDOMEN: Significantly depressed bowel sounds; however, they are audible. EXTREMITIES: No edema. LABORATORY DATA: Hemoglobin and hematocrit 9.2 and 28.6, white count 11.8, platelet count 289,000. Today's blood sugars are 162, 210 and 168 respectively. ASSESSMENT: 1. Status post reversal ileostomy with ileocecal anastomosis. 2. Advanced chronic obstructive lung disease. 3. Sinus tachycardia. 4. History of recent deep vein thrombosis and pulmonary embolism, status post inferior vena cava filter placement. 4. Ileus. 5. Hypertension. 6. Uncontrolled diabetes mellitus. RECOMMENDATIONS: Continue mg four times a day, resume Eliquis 5 mg twice a day, continue IV Flagyl 500 mg every 8 hours, and Lopressor 25 mg twice a day, Solu-Medrol 40 mg intravenously daily, vancomycin 1 g intravenously every 12 hours, Zosyn 3.375 g intravenously every 6 hours. Mukesh Correia MD
[2018-05-03] MEDS: Ferric Sodium Gluconat Complex 125 MG in Sodium Chloride 0.9% 100 ML IVPB SCH (19:27)
--- NOTE | 2018-05-03 23:04 | CP.PCM.PN ---
Objective - Vital Signs/Intake and Output Vital Signs (last 24 hours): Temp Pulse Resp BP Pulse Ox 98.2 F 80 20 126/66 96 05/03/18 15:55 05/03/18 21:00 05/03/18 15:55 05/03/18 21:00 05/03/18 15:55 Intake and Output: 05/03/18 05/04/18 18:59 06:59 Intake Total 800 300 Output Total 800 700 Balance 0 -400 - Medications Medications: Current Medications Albuterol (Ventolin Hfa 90 Mcg/Actuation (8 G)) 1 puff INH RQ6 PRN PRN Reason: Shortness of Breath Albuterol/Ipratropium (Duoneb 3 Mg/0.5 Mg (3 Ml) Ud) 3 ml INH RQ6 [facility] Last Admin: 05/03/18 19:07 Dose: 3 ml Alprazolam (Xanax) 0.5 mg PO Q12 [facility] Last Admin: 05/03/18 21:00 Dose: 0.5 mg Apixaban (Eliquis) 5 mg PO BID [facility] Last Admin: 04/26/18 09:00 Dose: 5 mg Bismuth Subsalicylate (Pepto-Bismol) 262 mg PO BID [facility] Last Admin: 05/03/18 17:40 Dose: 262 mg Budesonide (Pulmicort Respules) 0.5 mg INH RQ12 [facility] Last Admin: 05/03/18 19:07 Dose: 0.5 mg Diltiazem HCl (Cardizem) 30 mg PO QID [facility] Last Admin: 05/03/18 21:00 Dose: 30 mg Guaifenesin (Robitussin) 200 mg PO QID [facility] Last Admin: 05/03/18 21:00 Dose: 200 mg Piperacillin Sod/Tazobactam Sod (Zosyn 3.375 Gm Iv Premix) 3.375 gm in 50 mls @ 100 mls/hr IVPB Q6H [facility] PRN Reason: Protocol Last Admin: 05/03/18 19:11 Dose: 100 mls/hr Metronidazole (Flagyl) 500 mg in 100 mls @ 100 mls/hr IVPB Q8H [facility] PRN Reason: Protocol Last Admin: 05/03/18 17:44 Dose: 100 mls/hr Vancomycin/Sodium Chloride (Vancomycin 1 Gm/Ns 200 Ml) 1 gm in 200 mls @ 166.6 mls/hr IVPB Q12H [facility] PRN Reason: Protocol Stop: 05/04/18 11:31 Last Admin: 05/03/18 22:31 Dose: 166.6 mls/hr Ferric Sodium Gluconate Complex 125 mg/ Sodium Chloride 110 mls @ 110 mls/hr IVPB Q24H [facility] Stop: 05/07/18 20:01 Last Admin: 05/03/18 19:27 Dose: 110 mls/hr Potassium Chloride/Dextrose/Sod Cl (Potassium Chl 20 Meq In D5-1/2ns) 1,000 mls @ 100 mls/hr IV .Q10H [facility] Last Admin: 05/03/18 13:49 Dose: 100 mls/hr Insulin Human Regular (Novolin R) 0 unit SC Q6 [facility] PRN Reason: Protocol Last Admin: 05/03/18 17:48 Dose: 2 unit Methylprednisolone (Solu-Medrol) 40 mg IVP DAILY [facility] Last Admin: 05/03/18 09:41 Dose: 40 mg Metoprolol Tartrate (Lopressor) 25 mg PO BID [facility] Last Admin: 05/03/18 17:42 Dose: 25 mg Morphine Sulfate (Morphine) 2 mg IVP Q4H [facility] PRN Reason: Pain, moderate (4-7) Last Admin: 05/03/18 19:16 Dose: 2 mg Multivitamins (Hexavitamin) 1 tab PO DAILY [facility] Last Admin: 05/03/18 09:18 Dose: 1 tab Oxycodone HCl (Oxycodone Immediate Release Tab) 5 mg PO Q6 PRN PRN Reason: Pain, moderate (4-7) Oxycodone HCl (Oxycodone Immediate Release Tab) 10 mg PO Q6 PRN PRN Reason: Pain, severe (8-10) Last Admin: 05/02/18 11:35 Dose: 10 mg Pantoprazole Sodium (Protonix Inj) 40 mg IVP DAILY [facility] Last Admin: 05/03/18 09:17 Dose: 40 mg Pregabalin (Lyrica) 75 mg PO BID [facility] Last Admin: 05/03/18 17:41 Dose: 75 mg Roflumilast (Daliresp) 500 mcg PO DAILY [facility] Last Admin: 05/03/18 09:17 Dose: 500 mcg Fluticasone/Salmeterol (Advair Diskus 250/50) 1 puff IH RQ12 [facility] Last Admin: 05/03/18 19:06 Dose: 1 puff Simethicone (Mylicon Chew Tab) 80 mg PO TID PRN PRN Reason: GI distress - Labs Labs: 05/03/18 11:38 05/03/18 11:38 PT 11.1 SECONDS (9.7-12.2) 04/25/18 18:21 INR 1.0 04/25/18 18:21 APTT 31 SECONDS (21-34) 04/25/18 18:21 Assessment and Plan (1) COPD exacerbation Status: Acute (2) Abdominal pain Status: Acute (3) Colostomy complication Status: Chronic (4) Pulmonary embolism Status: Chronic (5) Tachyarrhythmia Status: Acute
[2018-05-04] MEDS: Morphine 4 MG/ML VIAL IVP PRN ×2 (00:01→04:10)
[2018-05-04] MEDS: (Novolin R) Insulin Human Regular 100 units/ml vial SC SCH ×4 (00:56→23:54)
[2018-05-04] MEDS: Albuterol-Ipratrop 3 mg / 0.5 (3 ml) UD INH SCH ×4 (01:32→19:15)
[2018-05-04] MEDS: Piperacill/Tazo 3.375gm in Dex 3.375 GM/50 ML BAG IVPB SCH ×4 (01:33→19:46)
[2018-05-04] MEDS: metroNIDAZOLE IV 500 mg/100 ml 500 MG/100 ML BAG IVPB SCH ×2 (01:57→10:33)
[2018-05-04] MEDS: Potassium Ch 20mEq in D5-1/2NS 1,000 ML IV SCH ×4 (03:23→19:48)
--- NOTE | 2018-05-04 07:17 | CP.PCM.PN ---
Subjective - Date & Time of Evaluation Date of Evaluation: 05/04/18 Time of Evaluation: 07:15 - Subjective Subjective: General surgery progress note for Dr. Barak Hanna, PGY-2 Pt S & E at bedside at 0620 Pt reports flatus, ab pain all night requiring regular pain medications, tolerating CLD, continues with SOB on Bipap overnight, voiding. Pt reports lots of output from his wound with ambulation- dressing saturated. Denies N & V, BM. Objective - Vital Signs/Intake and Output Vital Signs (last 24 hours): Temp Pulse Resp BP Pulse Ox 98.1 F 80 20 125/72 96 05/03/18 23:16 05/04/18 05:09 05/03/18 23:16 05/03/18 23:16 05/03/18 23:16 Intake and Output: 05/04/18 05/04/18 06:59 18:59 Intake Total 1250 Output Total 1300 Balance -50 - Medications Medications: Current Medications Albuterol (Ventolin Hfa 90 Mcg/Actuation (8 G)) 1 puff INH RQ6 PRN PRN Reason: Shortness of Breath Albuterol/Ipratropium (Duoneb 3 Mg/0.5 Mg (3 Ml) Ud) 3 ml INH RQ6 [facility] Last Admin: 05/04/18 01:32 Dose: 3 ml Alprazolam (Xanax) 0.5 mg PO Q12 [facility] Last Admin: 05/03/18 21:00 Dose: 0.5 mg Apixaban (Eliquis) 5 mg PO BID [facility] Last Admin: 04/26/18 09:00 Dose: 5 mg Bismuth Subsalicylate (Pepto-Bismol) 262 mg PO BID [facility] Last Admin: 05/03/18 17:40 Dose: 262 mg Budesonide (Pulmicort Respules) 0.5 mg INH RQ12 [facility] Last Admin: 05/03/18 19:07 Dose: 0.5 mg Diltiazem HCl (Cardizem) 30 mg PO QID [facility] Last Admin: 05/03/18 21:00 Dose: 30 mg Guaifenesin (Robitussin) 200 mg PO QID [facility] Last Admin: 05/03/18 21:00 Dose: 200 mg Piperacillin Sod/Tazobactam Sod (Zosyn 3.375 Gm Iv Premix) 3.375 gm in 50 mls @ 100 mls/hr IVPB Q6H [facility] PRN Reason: Protocol Last Admin: 05/04/18 06:21 Dose: 100 mls/hr Metronidazole (Flagyl) 500 mg in 100 mls @ 100 mls/hr IVPB Q8H [facility] PRN Reason: Protocol Last Admin: 05/04/18 01:57 Dose: 100 mls/hr Vancomycin/Sodium Chloride (Vancomycin 1 Gm/Ns 200 Ml) 1 gm in 200 mls @ 166.6 mls/hr IVPB Q12H [facility] PRN Reason: Protocol Stop: 05/04/18 11:31 Last Admin: 05/03/18 22:31 Dose: 166.6 mls/hr Ferric Sodium Gluconate Complex 125 mg/ Sodium Chloride 110 mls @ 110 mls/hr IVPB Q24H [facility] Stop: 05/07/18 20:01 Last Admin: 05/03/18 19:27 Dose: 110 mls/hr Potassium Chloride/Dextrose/Sod Cl (Potassium Chl 20 Meq In D5-1/2ns) 1,000 mls @ 100 mls/hr IV .Q10H [facility] Last Admin: 05/04/18 06:22 Dose: 100 mls/hr Insulin Human Regular (Novolin R) 0 unit SC Q6 [facility] PRN Reason: Protocol Last Admin: 05/04/18 00:56 Dose: 3 unit Lidocaine (Lidoderm) 1 ea TD DAILY [facility] Methylprednisolone (Solu-Medrol) 40 mg IVP DAILY [facility] Last Admin: 05/03/18 09:41 Dose: 40 mg Metoprolol Tartrate (Lopressor) 25 mg PO BID [facility] Last Admin: 05/03/18 17:42 Dose: 25 mg Multivitamins (Hexavitamin) 1 tab PO DAILY [facility] Last Admin: 05/03/18 09:18 Dose: 1 tab Oxycodone HCl (Oxycodone Immediate Release Tab) 5 mg PO Q6 PRN PRN Reason: Pain, moderate (4-7) Oxycodone HCl (Oxycodone Immediate Release Tab) 10 mg PO Q6 PRN PRN Reason: Pain, severe (8-10) Last Admin: 05/02/18 11:35 Dose: 10 mg Pantoprazole Sodium (Protonix Inj) 40 mg IVP DAILY [facility] Last Admin: 05/03/18 09:17 Dose: 40 mg Pregabalin (Lyrica) 75 mg PO BID [facility] Last Admin: 05/03/18 17:41 Dose: 75 mg Roflumilast (Daliresp) 500 mcg PO DAILY [facility] Last Admin: 05/03/18 09:17 Dose: 500 mcg Fluticasone/Salmeterol (Advair Diskus 250/50) 1 puff IH RQ12 [facility] Last Admin: 05/03/18 19:06 Dose: 1 puff Simethicone (Mylicon Chew Tab) 80 mg PO TID PRN PRN Reason: GI distress - Labs Labs: 05/03/18 11:38 05/03/18 11:38 PT 11.1 SECONDS (9.7-12.2) 04/25/18 18:21 INR 1.0 04/25/18 18:21 APTT 31 SECONDS (21-34) 04/25/18 18:21 - Constitutional Appears: Non-toxic, No Acute Distress - Head Exam Head Exam: ATRAUMATIC, NORMAL INSPECTION, NORMOCEPHALIC - Eye Exam Eye Exam: EOMI, Normal appearance - ENT Exam ENT Exam: Mucous Membranes Moist, Normal Exam - Neck Exam Neck Exam: Full ROM, Normal Inspection - Respiratory Exam Respiratory Exam: NORMAL BREATHING PATTERN. absent: Respiratory Distress - Cardiovascular Exam Cardiovascular Exam: REGULAR RHYTHM, +S1 - GI/Abdominal Exam GI & Abdominal Exam: Distended (mild, but obese), Soft, Tenderness (Over incision site). absent: Firm, Guarding, Rigid Additional comments: Dressing saturated with serous strike through - Extremities Exam Extremities Exam: Normal Inspection - Neurological Exam Neurological Exam: Alert, Awake, CN II-XII Intact, Oriented x3 - Psychiatric Exam Psychiatric exam: Normal Affect, Normal Mood - Skin Skin Exam: Dry, Normal Color, Warm Assessment and Plan - Assessment and Plan (Free Text) Assessment: 68M POD#4 s/p ileostomy reversal, ileocecal anastomosis Plan: Dressing changed today Cont PO pain meds IV Abx OOBTC Ambulate PT/OT Further mgt as per primary team Will DW Dr. Emilia Hanna, PGY-2
[2018-05-04 07:30] LABS: BASO % 0.4 % (0.0-2.0); EOS % 0.1 % (0.0-4.0); HEMOGLOBIN 10.2 g/dL (12.0-18.0); LYMPH # 0.2 K/uL (1.0-4.3); LYMPH % 1.8 % (20.0-40.0); MEAN CORPUSCULAR HEMOGLOBIN 22.4 pg (27.0-31.0); MEAN CORPUSCULAR HGB CONC 32.9 g/dL (33.0-37.0); MEAN PLATELET VOLUME 8.1 fL (7.2-11.7); MONO # 0.6 K/uL (0.0-0.8); MONO % 5.4 % (0.0-10.0); NEUT % 92.3 % (50.0-75.0); PLATELET COUNT 318 K/uL (130-400); RBC 4.55 Mil/uL (4.40-5.90); RED CELL DISTRIBUTION WIDTH 19.5 % (11.5-14.5); WHITE BLOOD COUNT 11.9 K/uL (4.8-10.8)
[2018-05-04 08:02] LABS: ALB/GLOB RATIO 1.3 (1.0-2.1); ALBUMIN 3.3 g/dL (3.5-5.0); ALT/SGPT 41 U/L (21-72); AST/SGOT 21 U/L (17-59); BLOOD UREA NITROGEN 6 mg/dL (9-20); CALCIUM 8.6 mg/dl (8.6-10.4); GFR NON-AFRICAN AMERICAN > 60
[2018-05-04] MEDS: Fluticasone-Salmeterol 250-50mcg Diskus IH SCH ×2 (08:09→19:15)
[2018-05-04] MEDS: Budesonide 0.5 mg/2 ml Inhal Susp UD INH SCH ×2 (08:10→19:15)
[2018-05-04] MEDS: Bismuth Subsalicylate 262 mg/15 ml Sus (240 ml) PO SCH ×2 (09:10→17:43)
[2018-05-04] MEDS: Multiple Vitamins Tab PO SCH (09:11)
[2018-05-04] MEDS: oxyCODONE 10 mg Immediate Release Tab PO PRN ×2 (09:11→17:40)
[2018-05-04] MEDS: Lidocaine 5% Patch TD SCH (09:12)
[2018-05-04] MEDS: MethylPREDNISolone 40 mg Vial IVP SCH (09:20)
[2018-05-04] MEDS: guaiFENesin 100 mg/5 ml Syrup UD PO SCH ×4 (09:37→21:13)
[2018-05-04 11:42] LABS: ANISOCYTOSIS SLIGHT; LYMPHOCYTE 1 % (20-40); MONOCYTE 4 % (0-10); NEUTROPHIL 95 % (50-75); PLATELET ESTIMATE NORMAL (NORMAL); POIKILOCYTOSIS SLIGHT; TOTAL CELLS COUNTED 100
[2018-05-04 11:43] LABS: HYPOCHROMIC SLIGHT; SCHISTOCYTES SLIGHT
[2018-05-04 11:44] LABS: OVALOCYTES MODERATE
[2018-05-04 11:45] LABS: MICROCYTOSIS SLIGHT; POLYCHROMIC SLIGHT
[2018-05-04 11:46] LABS: LARGE PLATELETS PRESENT; PLATELET CLUMPS PRESENT
[2018-05-04] MEDS: Vancomycin 1 gm/NS 200 ml 1 GM/200 ML BAG IVPB SCH (12:00)
--- NOTE | 2018-05-04 17:29 | PN ---
DATE: 05/04/2018 SUBJECTIVE: The patient is chest pain-free. He is tolerating liquid diet and he has been having loose bowel movements. PHYSICAL EXAMINATION: VITAL SIGNS: Blood pressure 131/73, heart rate 98, temperature 97.3, respirations 20. HEENT: Normocephalic. CHEST: Minimal rhonchi. HEART: S1 and S2, regular. EXTREMITIES: No edema. LABORATORY DATA: Today's SMA-7: Sodium 136, potassium 4.1, chloride 98, CO2 32, glucose 260, BUN 6, and creatinine 0.4. ASSESSMENT: 1. Status post reversal of ileostomy and ileocecal anastomosis. 2. Hypertension. 3. Uncontrolled diabetes mellitus. 4. Chronic obstructive lung disease. 5. History of recent deep vein thrombosis and pulmonary embolus. RECOMMENDATIONS: The patient was resumed on Eliquis 5 mg twice a day. To continue Cardizem 30 mg 4 times a day, Protonix 40 mg intravenously once a day, Solu-Medrol 40 mg intravenously daily, Zosyn 3.375 g intravenously every 6 hours. Mukesh Correia MD
--- NOTE | 2018-05-04 18:44 | CP.PCM.PN ---
Subjective - Date & Time of Evaluation Date of Evaluation: 05/04/18 Time of Evaluation: 18:20 - Subjective Subjective: the patient seen and examined Complaining of shortness of breath On clear liquid BiPAP as needed Afebrile Objective - Vital Signs/Intake and Output Vital Signs (last 24 hours): Temp Pulse Resp BP Pulse Ox 97.8 F 95 H 20 116/76 99 05/04/18 15:00 05/04/18 15:00 05/04/18 15:00 05/04/18 17:36 05/04/18 15:00 Intake and Output: 05/04/18 05/04/18 06:59 18:59 Intake Total 1250 Output Total 1300 650 Balance -50 -650 - Medications Medications: Current Medications Albuterol (Ventolin Hfa 90 Mcg/Actuation (8 G)) 1 puff INH RQ6 PRN PRN Reason: Shortness of Breath Albuterol/Ipratropium (Duoneb 3 Mg/0.5 Mg (3 Ml) Ud) 3 ml INH RQ6 [facility] Last Admin: 05/04/18 13:15 Dose: 3 ml Alprazolam (Xanax) 0.5 mg PO Q12 [facility] Last Admin: 05/04/18 09:12 Dose: 0.5 mg Apixaban (Eliquis) 5 mg PO BID [facility] Last Admin: 05/04/18 17:36 Dose: 5 mg Bismuth Subsalicylate (Pepto-Bismol) 262 mg PO BID [facility] Last Admin: 05/04/18 17:43 Dose: Not Given Budesonide (Pulmicort Respules) 0.5 mg INH RQ12 [facility] Last Admin: 05/04/18 08:10 Dose: 0.5 mg Diltiazem HCl (Cardizem) 30 mg PO QID [facility] Last Admin: 05/04/18 17:36 Dose: 30 mg Guaifenesin (Robitussin) 200 mg PO QID [facility] Last Admin: 05/04/18 17:36 Dose: 200 mg Piperacillin Sod/Tazobactam Sod (Zosyn 3.375 Gm Iv Premix) 3.375 gm in 50 mls @ 100 mls/hr IVPB Q6H [facility] PRN Reason: Protocol Last Admin: 05/04/18 13:08 Dose: 100 mls/hr Ferric Sodium Gluconate Complex 125 mg/ Sodium Chloride 110 mls @ 110 mls/hr IVPB Q24H [facility] Stop: 05/07/18 20:01 Last Admin: 05/03/18 19:27 Dose: 110 mls/hr Potassium Chloride/Dextrose/Sod Cl (Potassium Chl 20 Meq In D5-1/2ns) 1,000 mls @ 100 mls/hr IV .Q10H [facility] Last Admin: 05/04/18 10:32 Dose: Not Given Insulin Human Regular (Novolin R) 0 unit SC Q6 [facility] PRN Reason: Protocol Last Admin: 05/04/18 17:37 Dose: 4 unit Lidocaine (Lidoderm) 1 ea TD DAILY [facility] Last Admin: 05/04/18 09:12 Dose: 1 ea Methylprednisolone (Solu-Medrol) 40 mg IVP DAILY [facility] Last Admin: 05/04/18 09:20 Dose: 40 mg Metoprolol Tartrate (Lopressor) 25 mg PO BID [facility] Last Admin: 05/04/18 17:36 Dose: 25 mg Multivitamins (Hexavitamin) 1 tab PO DAILY [facility] Last Admin: 05/04/18 09:11 Dose: 1 tab Oxycodone HCl (Oxycodone Immediate Release Tab) 5 mg PO Q6 PRN PRN Reason: Pain, moderate (4-7) Last Admin: 05/04/18 13:46 Dose: 5 mg Oxycodone HCl (Oxycodone Immediate Release Tab) 10 mg PO Q6 PRN PRN Reason: Pain, severe (8-10) Last Admin: 05/04/18 17:40 Dose: 10 mg Pantoprazole Sodium (Protonix Inj) 40 mg IVP DAILY [facility] Last Admin: 05/04/18 09:10 Dose: 40 mg Pregabalin (Lyrica) 75 mg PO BID [facility] Last Admin: 05/04/18 17:36 Dose: 75 mg Roflumilast (Daliresp) 500 mcg PO DAILY [facility] Last Admin: 05/04/18 09:11 Dose: 500 mcg Fluticasone/Salmeterol (Advair Diskus 250/50) 1 puff IH RQ12 [facility] Last Admin: 05/04/18 08:09 Dose: 1 puff Simethicone (Mylicon Chew Tab) 80 mg PO TID PRN PRN Reason: GI distress - Labs Labs: 05/04/18 07:17 05/04/18 07:17 PT 11.1 SECONDS (9.7-12.2) 04/25/18 18:21 INR 1.0 04/25/18 18:21 APTT 31 SECONDS (21-34) 04/25/18 18:21 - Head Exam Head Exam: ATRAUMATIC, NORMOCEPHALIC - Eye Exam Eye Exam: Normal appearance - Neck Exam Neck Exam: Normal Inspection - Respiratory Exam Respiratory Exam: Decreased Breath Sounds - Cardiovascular Exam Cardiovascular Exam: REGULAR RHYTHM Assessment and Plan (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
[2018-05-04] MEDS: Ferric Sodium Gluconat Complex 125 MG in Sodium Chloride 0.9% 100 ML IVPB SCH (21:13)
[2018-05-05] MEDS: Piperacill/Tazo 3.375gm in Dex 3.375 GM/50 ML BAG IVPB SCH ×4 (00:01→17:59)
[2018-05-05] MEDS: Albuterol-Ipratrop 3 mg / 0.5 (3 ml) UD INH SCH ×4 (01:13→19:39)
--- NOTE | 2018-05-05 01:30 | PN ---
DATE: 05/04/2018 SUBJECTIVE: The patient is feeling better. He has some pain. No nausea, vomiting. He is on feeds, and he is tolerating feeds. No new chest pain. Status post OR. The patient denies any urinary complaints. PHYSICAL EXAMINATION: VITAL SIGNS: Blood pressure 116/76, pulse 77, respiratory rate 20, temperature 97.8. LUNGS: Clear. CVS: S1, S2 regular. ABDOMEN: Soft. ASSESSMENT: 1. Colostomy, status post reversal. 2. Anemia of chronic disease. 3. Colon cancer stage I. 4. Chronic obstructive pulmonary disease. PLAN: Continue current medication. diet. Change pain medication. Monitor the patient. Hal Garcia MD
[2018-05-05] MEDS: (Novolin R) Insulin Human Regular 100 units/ml vial SC SCH ×3 (06:21→18:09)
[2018-05-05] MEDS: Potassium Ch 20mEq in D5-1/2NS 1,000 ML IV SCH (07:45)
[2018-05-05] MEDS: Fluticasone-Salmeterol 250-50mcg Diskus IH SCH ×2 (08:07→19:41)
[2018-05-05] MEDS: Budesonide 0.5 mg/2 ml Inhal Susp UD INH SCH ×2 (08:10→19:39)
[2018-05-05] MEDS: Multiple Vitamins Tab PO SCH (09:19)
[2018-05-05] MEDS: guaiFENesin 100 mg/5 ml Syrup UD PO SCH ×4 (09:19→21:44)
[2018-05-05] MEDS: Lidocaine 5% Patch TD SCH (09:19)
[2018-05-05] MEDS: Bismuth Subsalicylate 262 mg Chew Tab PO SCH ×2 (09:22→17:58)
[2018-05-05] MEDS: MethylPREDNISolone 40 mg Vial IVP SCH (09:26)
[2018-05-05] MEDS ORDERED: HYDROmorphone 1 mg/ml ISec IVP PRN (11:55)
--- NOTE | 2018-05-05 11:59 | CP.PCM.PN ---
Subjective - Date & Time of Evaluation Date of Evaluation: 05/05/18 Time of Evaluation: 11:57 - Subjective Subjective: Surgery PT seen and examined. Dressing changed this AM. Had regular BM. No blood, no diarrhea. PT helping him ambulate. On BIPAP at night. c/o abd pain. VOIding. TOlerating PO. Objective - Vital Signs/Intake and Output Vital Signs (last 24 hours): Temp Pulse Resp BP Pulse Ox 98.1 F 95 H 20 155/85 H 100 05/05/18 08:00 05/05/18 09:15 05/05/18 08:00 05/05/18 09:20 05/05/18 08:00 Intake and Output: 05/05/18 05/05/18 06:59 18:59 Intake Total 1750 Output Total 500 Balance 1250 - Medications Medications: Current Medications Albuterol (Ventolin Hfa 90 Mcg/Actuation (8 G)) 1 puff INH RQ6 PRN PRN Reason: Shortness of Breath Albuterol/Ipratropium (Duoneb 3 Mg/0.5 Mg (3 Ml) Ud) 3 ml INH RQ6 [facility] Last Admin: 05/05/18 01:13 Dose: 3 ml Alprazolam (Xanax) 0.5 mg PO Q12 [facility] Last Admin: 05/05/18 09:19 Dose: 0.5 mg Apixaban (Eliquis) 5 mg PO BID [facility] Last Admin: 05/05/18 09:19 Dose: 5 mg Bismuth Subsalicylate (Pepto Bismol) 262 mg PO BID [facility] Last Admin: 05/05/18 09:22 Dose: 262 mg Budesonide (Pulmicort Respules) 0.5 mg INH RQ12 [facility] Last Admin: 05/04/18 19:15 Dose: 0.5 mg Diltiazem HCl (Cardizem) 30 mg PO QID [facility] Last Admin: 05/05/18 09:19 Dose: 30 mg Guaifenesin (Robitussin) 200 mg PO QID [facility] Last Admin: 05/05/18 09:19 Dose: 200 mg Hydromorphone HCl (Dilaudid) 1 mg IVP Q4H PRN PRN Reason: Pain, severe (8-10) Piperacillin Sod/Tazobactam Sod (Zosyn 3.375 Gm Iv Premix) 3.375 gm in 50 mls @ 100 mls/hr IVPB Q6H [facility] PRN Reason: Protocol Last Admin: 05/05/18 06:07 Dose: 100 mls/hr Ferric Sodium Gluconate Complex 125 mg/ Sodium Chloride 110 mls @ 110 mls/hr IVPB Q24H [facility] Stop: 05/07/18 20:01 Last Admin: 05/04/18 21:13 Dose: 110 mls/hr Insulin Human Regular (Novolin R) 0 unit SC Q6 [facility] PRN Reason: Protocol Last Admin: 05/05/18 06:21 Dose: 1 unit Lidocaine (Lidoderm) 1 ea TD DAILY [facility] Last Admin: 05/05/18 09:19 Dose: 1 ea Methylprednisolone (Solu-Medrol) 40 mg IVP DAILY [facility] Last Admin: 05/05/18 09:26 Dose: 40 mg Metoprolol Tartrate (Lopressor) 25 mg PO BID [facility] Last Admin: 05/05/18 09:20 Dose: 25 mg Morphine Sulfate (Morphine) 2 mg IVP Q4 PRN PRN Reason: Pain, Mild (1-3) Last Admin: 05/05/18 07:43 Dose: 2 mg Multivitamins (Hexavitamin) 1 tab PO DAILY [facility] Last Admin: 05/05/18 09:19 Dose: 1 tab Pantoprazole Sodium (Protonix Inj) 40 mg IVP DAILY [facility] Last Admin: 05/05/18 09:19 Dose: 40 mg Pregabalin (Lyrica) 75 mg PO BID [facility] Last Admin: 05/05/18 09:19 Dose: 75 mg Roflumilast (Daliresp) 500 mcg PO DAILY [facility] Last Admin: 05/05/18 09:18 Dose: 500 mcg Fluticasone/Salmeterol (Advair Diskus 250/50) 1 puff IH RQ12 [facility] Last Admin: 05/04/18 19:15 Dose: 1 puff Simethicone (Mylicon Chew Tab) 80 mg PO TID PRN PRN Reason: GI distress - Labs Labs: 05/04/18 07:17 05/04/18 07:17 PT 11.1 SECONDS (9.7-12.2) 04/25/18 18:21 INR 1.0 04/25/18 18:21 APTT 31 SECONDS (21-34) 04/25/18 18:21 - Constitutional Appears: No Acute Distress - Head Exam Head Exam: ATRAUMATIC, NORMAL INSPECTION, NORMOCEPHALIC - Eye Exam Eye Exam: EOMI, Normal appearance, PERRL Pupil Exam: NORMAL ACCOMODATION, PERRL - ENT Exam ENT Exam: Mucous Membranes Moist, Normal Exam - Neck Exam Neck Exam: Full ROM, Normal Inspection. absent: Lymphadenopathy - Respiratory Exam Respiratory Exam: NORMAL BREATHING PATTERN - Cardiovascular Exam Cardiovascular Exam: REGULAR RHYTHM, +S1, +S2. absent: Murmur - GI/Abdominal Exam GI & Abdominal Exam: Distended, Soft, Tenderness. absent: Firm, Guarding, Rigid Additional comments: Incision dressing had seroud fluids. changed. kiran in place. - Rectal Exam Rectal Exam: NORMAL INSPECTION - Exam Exam: NORMAL INSPECTION - Extremities Exam Extremities Exam: Full ROM, Normal Capillary Refill, Normal Inspection. absent: Joint Swelling, Pedal Edema - Back Exam Back Exam: NORMAL INSPECTION - Neurological Exam Neurological Exam: Alert, Awake, CN II-XII Intact, Normal Gait, Oriented x3 - Psychiatric Exam Psychiatric exam: Normal Affect, Normal Mood - Skin Skin Exam: Warm. absent: Dry, Intact Assessment and Plan - Assessment and Plan (Free Text) Assessment: 68M POD#5 s/p ileostomy reversal, ileocecal anastomosis: having BM. Plan: Advance diet as tolerated. Dressing changed today Cont PO pain meds IV Abx OOBTC Ambulate PT/OT Further mgt as per primary team Will ALEJANDRA Nieto
--- NOTE | 2018-05-05 18:44 | PN ---
DATE: 05/05/2018 SUBJECTIVE: The patient is experiencing abdominal discomfort. He is still on clear liquid diet. He is having bowel movements. PHYSICAL EXAMINATION: VITAL SIGNS: Blood pressure 155/85, heart rate 95, temperature 98.1, respirations 20. HEENT: Normocephalic. CHEST: Clear. HEART: S1 and S2 regular. ABDOMEN: Absent bowel sounds. EXTREMITIES: No edema. LABORATORY DATA: Today's blood sugar is 195. ASSESSMENT: 1. Status post reversal of ileostomy with ileocecal anastomosis. 2. Consider ileus. 3. Chronic obstructive lung disease. 4. Physiologic sinus tachycardia. 5. Hypertension. 6. Uncontrolled diabetes mellitus. 7. Right femoral vein deep vein thrombosis and pulmonary embolism. RECOMMENDATIONS: Continue Cardizem at 30 mg four times a day. Continue Eliquis 5 mg twice a day. Continue Lopressor 25 mg twice a day, Protonix 40 mg intravenously once a day, Zosyn 3.375 g intravenously every 6 hours. Obtain BMP in the a.m. Mukesh Correia MD
--- NOTE | 2018-05-05 19:51 | CP.PCM.PN ---
Objective - Vital Signs/Intake and Output Vital Signs (last 24 hours): Temp Pulse Resp BP Pulse Ox 97.6 F 85 20 118/72 99 05/05/18 16:10 05/05/18 16:10 05/05/18 16:10 05/05/18 17:59 05/05/18 16:10 - Medications Medications: Current Medications Albuterol (Ventolin Hfa 90 Mcg/Actuation (8 G)) 1 puff INH RQ6 PRN PRN Reason: Shortness of Breath Albuterol/Ipratropium (Duoneb 3 Mg/0.5 Mg (3 Ml) Ud) 3 ml INH RQ6 [facility] Last Admin: 05/05/18 19:39 Dose: 3 ml Alprazolam (Xanax) 0.5 mg PO Q12 [facility] Last Admin: 05/05/18 09:19 Dose: 0.5 mg Apixaban (Eliquis) 5 mg PO BID [facility] Last Admin: 05/05/18 17:59 Dose: 5 mg Bismuth Subsalicylate (Pepto Bismol) 262 mg PO BID [facility] Last Admin: 05/05/18 17:58 Dose: 262 mg Budesonide (Pulmicort Respules) 0.5 mg INH RQ12 [facility] Last Admin: 05/05/18 19:39 Dose: 0.5 mg Diltiazem HCl (Cardizem) 30 mg PO QID [facility] Last Admin: 05/05/18 17:59 Dose: 30 mg Guaifenesin (Robitussin) 200 mg PO QID [facility] Last Admin: 05/05/18 17:59 Dose: 200 mg Hydromorphone HCl (Dilaudid) 1 mg IVP Q4H PRN PRN Reason: Pain, severe (8-10) Piperacillin Sod/Tazobactam Sod (Zosyn 3.375 Gm Iv Premix) 3.375 gm in 50 mls @ 100 mls/hr IVPB Q6H [facility] PRN Reason: Protocol Last Admin: 05/05/18 17:59 Dose: 100 mls/hr Ferric Sodium Gluconate Complex 125 mg/ Sodium Chloride 110 mls @ 110 mls/hr IVPB Q24H [facility] Stop: 05/07/18 20:01 Last Admin: 05/04/18 21:13 Dose: 110 mls/hr Insulin Human Regular (Novolin R) 0 unit SC Q6 [facility] PRN Reason: Protocol Last Admin: 05/05/18 18:09 Dose: 3 unit Lidocaine (Lidoderm) 1 ea TD DAILY [facility] Last Admin: 05/05/18 09:19 Dose: 1 ea Methylprednisolone (Solu-Medrol) 40 mg IVP DAILY [facility] Last Admin: 05/05/18 09:26 Dose: 40 mg Metoprolol Tartrate (Lopressor) 25 mg PO BID [facility] Last Admin: 05/05/18 17:59 Dose: 25 mg Morphine Sulfate (Morphine) 2 mg IVP Q4 PRN PRN Reason: Pain, Mild (1-3) Last Admin: 05/05/18 16:31 Dose: 2 mg Multivitamins (Hexavitamin) 1 tab PO DAILY [facility] Last Admin: 05/05/18 09:19 Dose: 1 tab Ondansetron HCl (Zofran Inj) 4 mg IVP Q4 PRN PRN Reason: Nausea/Vomiting Pantoprazole Sodium (Protonix Inj) 40 mg IVP DAILY [facility] Last Admin: 05/05/18 09:19 Dose: 40 mg Pregabalin (Lyrica) 75 mg PO BID [facility] Last Admin: 05/05/18 17:58 Dose: 75 mg Roflumilast (Daliresp) 500 mcg PO DAILY [facility] Last Admin: 05/05/18 09:18 Dose: 500 mcg Fluticasone/Salmeterol (Advair Diskus 250/50) 1 puff IH RQ12 [facility] Last Admin: 05/05/18 19:41 Dose: Not Given Simethicone (Mylicon Chew Tab) 80 mg PO TID PRN PRN Reason: GI distress - Labs Labs: 05/04/18 07:17 05/04/18 07:17 PT 11.1 SECONDS (9.7-12.2) 04/25/18 18:21 INR 1.0 04/25/18 18:21 APTT 31 SECONDS (21-34) 04/25/18 18:21 Assessment and Plan (1) COPD exacerbation Status: Acute (2) Abdominal pain Status: Acute (3) Colostomy complication Status: Chronic (4) Pulmonary embolism Status: Chronic (5) Tachyarrhythmia Status: Acute
[2018-05-05] MEDS: Ferric Sodium Gluconat Complex 125 MG in Sodium Chloride 0.9% 100 ML IVPB SCH (20:47)
[2018-05-06] MEDS: Piperacill/Tazo 3.375gm in Dex 3.375 GM/50 ML BAG IVPB SCH ×4 (00:01→18:25)
[2018-05-06] MEDS: Albuterol-Ipratrop 3 mg / 0.5 (3 ml) UD INH SCH ×4 (01:41→19:20)
[2018-05-06] MEDS: (Novolin R) Insulin Human Regular 100 units/ml vial SC SCH ×4 (06:43→18:56)
--- NOTE | 2018-05-06 07:07 | PN ---
DATE: 05/03/2018 SUBJECTIVE: The patient is on clear liquid diet. He is afebrile. Less short of breath. Less tachycardic, tachypneic. No fever. No chills. His colostomy has been closed. PHYSICAL EXAMINATION: VITAL SIGNS: Blood pressure is 126/66, pulse 80, respiratory rate 20, and temperature 98.2. LUNGS: Decreased air entry. CARDIOVASCULAR SYSTEM: S1 and S2 are regular. ABDOMEN: Soft. ASSESSMENT: 1. Exacerbation of chronic obstructive pulmonary disease. 2. Colostomy complication. 3. Steroid induced diabetes. 4. Anxiety. PLAN: Proceed diet as tolerated. Physical therapy. The patient is doing well so far. Hal Garcia MD
[2018-05-06] MEDS: Budesonide 0.5 mg/2 ml Inhal Susp UD INH SCH ×2 (07:14→19:20)
[2018-05-06] MEDS: Fluticasone-Salmeterol 250-50mcg Diskus IH SCH (07:15)
[2018-05-06 08:28] LABS: BLOOD UREA NITROGEN 6 mg/dL (9-20); CALCIUM 8.6 mg/dl (8.6-10.4); GFR NON-AFRICAN AMERICAN > 60
[2018-05-06 10:00] LABS: BASO % 0.2 % (0.0-2.0); EOS % 0.2 % (0.0-4.0); HEMOGLOBIN 10.9 g/dL (12.0-18.0); LYMPH # 1.2 K/uL (1.0-4.3); LYMPH % 7.3 % (20.0-40.0); MEAN CORPUSCULAR HEMOGLOBIN 22.8 pg (27.0-31.0); MEAN CORPUSCULAR HGB CONC 32.6 g/dL (33.0-37.0); MEAN PLATELET VOLUME 8.3 fL (7.2-11.7); MONO # 0.9 K/uL (0.0-0.8); MONO % 5.3 % (0.0-10.0); NEUT # 13.9 K/uL (1.8-7.0); PLATELET COUNT 307 K/uL (130-400); RBC 4.76 Mil/uL (4.40-5.90); RED CELL DISTRIBUTION WIDTH 20.1 % (11.5-14.5)
[2018-05-06] MEDS ORDERED: Vitamins A & D Oint UD Foilpak TOP SCH (10:00)
[2018-05-06] MEDS: MethylPREDNISolone 40 mg Vial IVP SCH (10:15)
[2018-05-06] MEDS: Bismuth Subsalicylate 262 mg Chew Tab PO SCH ×2 (10:15→18:23)
[2018-05-06] MEDS: Lidocaine 5% Patch TD SCH (10:16)
[2018-05-06] MEDS: Multiple Vitamins Tab PO SCH (10:16)
[2018-05-06] MEDS: guaiFENesin 100 mg/5 ml Syrup UD PO SCH ×4 (10:24→21:18)
[2018-05-06 10:34] LABS: ANISOCYTOSIS SLIGHT; BANDS 1 % (0-2); HYPOCHROMIC SLIGHT; LYMPHOCYTE 5 % (20-40); MONOCYTE 6 % (0-10); NEUTROPHIL 88 % (50-75); PLATELET ESTIMATE NORMAL (NORMAL); POIKILOCYTOSIS SLIGHT; TARGET CELLS SLIGHT; TOTAL CELLS COUNTED 100
[2018-05-06 10:35] LABS: OVALOCYTES SLIGHT; TEARDROP CELLS SLIGHT
--- NOTE | 2018-05-06 13:53 | CP.PCM.PN ---
Subjective - Date & Time of Evaluation Date of Evaluation: 05/06/18 Time of Evaluation: 09:00 - Subjective Subjective: patient seen and examined Complaining of difficulty tolerating diet and throwing up Denies shortness of breath Afebrile on BiPAP at night Continue present treatment Objective - Vital Signs/Intake and Output Vital Signs (last 24 hours): Temp Pulse Resp BP Pulse Ox 98.2 F 96 H 20 120/78 100 05/06/18 07:30 05/06/18 10:29 05/06/18 07:30 05/06/18 10:29 05/06/18 07:30 Intake and Output: 05/06/18 05/06/18 06:59 18:59 Intake Total 270 Output Total 800 Balance -530 - Medications Medications: Current Medications Albuterol (Ventolin Hfa 90 Mcg/Actuation (8 G)) 1 puff INH RQ6 PRN PRN Reason: Shortness of Breath Albuterol/Ipratropium (Duoneb 3 Mg/0.5 Mg (3 Ml) Ud) 3 ml INH RQ6 [facility] Last Admin: 05/06/18 13:11 Dose: 3 ml Alprazolam (Xanax) 0.5 mg PO Q12 [facility] Last Admin: 05/06/18 10:15 Dose: 0.5 mg Apixaban (Eliquis) 5 mg PO BID [facility] Last Admin: 05/06/18 10:16 Dose: 5 mg Bismuth Subsalicylate (Pepto Bismol) 262 mg PO BID [facility] Last Admin: 05/06/18 10:15 Dose: 262 mg Budesonide (Pulmicort Respules) 0.5 mg INH RQ12 [facility] Last Admin: 05/06/18 07:14 Dose: 0.5 mg Diltiazem HCl (Cardizem) 30 mg PO QID [facility] Last Admin: 05/06/18 13:19 Dose: 30 mg Guaifenesin (Robitussin) 200 mg PO QID [facility] Last Admin: 05/06/18 10:24 Dose: 200 mg Hydromorphone HCl (Dilaudid) 1 mg IVP Q4H PRN PRN Reason: Pain, severe (8-10) Piperacillin Sod/Tazobactam Sod (Zosyn 3.375 Gm Iv Premix) 3.375 gm in 50 mls @ 100 mls/hr IVPB Q6H [facility] PRN Reason: Protocol Last Admin: 05/06/18 13:25 Dose: 100 mls/hr Ferric Sodium Gluconate Complex 125 mg/ Sodium Chloride 110 mls @ 110 mls/hr IVPB Q24H [facility] Stop: 05/07/18 20:01 Last Admin: 05/05/18 20:47 Dose: 110 mls/hr Insulin Human Regular (Novolin R) 0 unit SC Q6 [facility] PRN Reason: Protocol Last Admin: 05/06/18 12:50 Dose: 1 unit Lidocaine (Lidoderm) 1 ea TD DAILY [facility] Last Admin: 05/06/18 10:16 Dose: 1 ea Methylprednisolone (Solu-Medrol) 40 mg IVP DAILY [facility] Last Admin: 05/06/18 10:15 Dose: 40 mg Metoprolol Tartrate (Lopressor) 25 mg PO BID [facility] Last Admin: 05/06/18 10:16 Dose: 25 mg Morphine Sulfate (Morphine) 2 mg IVP Q4 PRN PRN Reason: Pain, Mild (1-3) Last Admin: 05/06/18 10:24 Dose: 2 mg Multivitamins (Hexavitamin) 1 tab PO DAILY [facility] Last Admin: 05/06/18 10:16 Dose: 1 tab Ondansetron HCl (Zofran Inj) 4 mg IVP Q4 PRN PRN Reason: Nausea/Vomiting Pantoprazole Sodium (Protonix Inj) 40 mg IVP DAILY [facility] Last Admin: 05/06/18 10:16 Dose: 40 mg Pregabalin (Lyrica) 75 mg PO BID [facility] Last Admin: 05/06/18 10:15 Dose: 75 mg Roflumilast (Daliresp) 500 mcg PO DAILY [facility] Last Admin: 05/06/18 10:16 Dose: 500 mcg Fluticasone/Salmeterol (Advair Diskus 250/50) 1 puff IH RQ12 [facility] Last Admin: 05/06/18 07:15 Dose: Not Given Simethicone (Mylicon Chew Tab) 80 mg PO TID PRN PRN Reason: GI distress - Labs Labs: 05/06/18 09:53 05/06/18 07:59 PT 11.1 SECONDS (9.7-12.2) 04/25/18 18:21 INR 1.0 04/25/18 18:21 APTT 31 SECONDS (21-34) 04/25/18 18:21 Assessment and Plan (1) COPD (chronic obstructive pulmonary disease) with emphysema Status: Acute
--- NOTE | 2018-05-06 15:40 | CP.PCM.PN ---
Subjective - Date & Time of Evaluation Date of Evaluation: 05/06/18 Time of Evaluation: 09:20 - Subjective Subjective: General surgery progress note for Dr. Rigo Hanna, PGY-2 Pt S & E at bedside at 0650 Pt reports abdominal pain, flatus, having BMs. Denies N & V, F & C. Continues with SOB on Bipap Objective - Vital Signs/Intake and Output Vital Signs (last 24 hours): Temp Pulse Resp BP Pulse Ox 98.2 F 96 H 20 120/78 100 05/06/18 07:30 05/06/18 10:29 05/06/18 07:30 05/06/18 10:29 05/06/18 07:30 Intake and Output: 05/06/18 05/06/18 06:59 18:59 Intake Total 270 Output Total 800 Balance -530 - Medications Medications: Current Medications Albuterol (Ventolin Hfa 90 Mcg/Actuation (8 G)) 1 puff INH RQ6 PRN PRN Reason: Shortness of Breath Albuterol/Ipratropium (Duoneb 3 Mg/0.5 Mg (3 Ml) Ud) 3 ml INH RQ6 [facility] Last Admin: 05/06/18 13:11 Dose: 3 ml Alprazolam (Xanax) 0.5 mg PO Q12 [facility] Last Admin: 05/06/18 10:15 Dose: 0.5 mg Apixaban (Eliquis) 5 mg PO BID [facility] Last Admin: 05/06/18 10:16 Dose: 5 mg Bismuth Subsalicylate (Pepto Bismol) 262 mg PO BID [facility] Last Admin: 05/06/18 10:15 Dose: 262 mg Budesonide (Pulmicort Respules) 0.5 mg INH RQ12 [facility] Last Admin: 05/06/18 07:14 Dose: 0.5 mg Diltiazem HCl (Cardizem) 30 mg PO QID [facility] Last Admin: 05/06/18 13:19 Dose: 30 mg Guaifenesin (Robitussin) 200 mg PO QID [facility] Last Admin: 05/06/18 14:25 Dose: 200 mg Hydromorphone HCl (Dilaudid) 1 mg IVP Q4H PRN PRN Reason: Pain, severe (8-10) Piperacillin Sod/Tazobactam Sod (Zosyn 3.375 Gm Iv Premix) 3.375 gm in 50 mls @ 100 mls/hr IVPB Q6H [facility] PRN Reason: Protocol Last Admin: 05/06/18 13:25 Dose: 100 mls/hr Ferric Sodium Gluconate Complex 125 mg/ Sodium Chloride 110 mls @ 110 mls/hr IVPB Q24H [facility] Stop: 05/07/18 20:01 Last Admin: 05/05/18 20:47 Dose: 110 mls/hr Insulin Human Regular (Novolin R) 0 unit SC Q6 [facility] PRN Reason: Protocol Last Admin: 05/06/18 12:50 Dose: 1 unit Lidocaine (Lidoderm) 1 ea TD DAILY [facility] Last Admin: 05/06/18 10:16 Dose: 1 ea Methylprednisolone (Solu-Medrol) 40 mg IVP DAILY [facility] Last Admin: 05/06/18 10:15 Dose: 40 mg Metoprolol Tartrate (Lopressor) 25 mg PO BID [facility] Last Admin: 05/06/18 10:16 Dose: 25 mg Morphine Sulfate (Morphine) 2 mg IVP Q4 PRN PRN Reason: Pain, Mild (1-3) Last Admin: 05/06/18 10:24 Dose: 2 mg Multivitamins (Hexavitamin) 1 tab PO DAILY [facility] Last Admin: 05/06/18 10:16 Dose: 1 tab Ondansetron HCl (Zofran Inj) 4 mg IVP Q4 PRN PRN Reason: Nausea/Vomiting Pantoprazole Sodium (Protonix Inj) 40 mg IVP DAILY [facility] Last Admin: 05/06/18 10:16 Dose: 40 mg Pregabalin (Lyrica) 75 mg PO BID [facility] Last Admin: 05/06/18 10:15 Dose: 75 mg Roflumilast (Daliresp) 500 mcg PO DAILY [facility] Last Admin: 05/06/18 10:16 Dose: 500 mcg Fluticasone/Salmeterol (Advair Diskus 250/50) 1 puff IH RQ12 [facility] Last Admin: 05/06/18 07:15 Dose: Not Given Simethicone (Mylicon Chew Tab) 80 mg PO TID PRN PRN Reason: GI distress - Labs Labs: 05/06/18 09:53 05/06/18 07:59 PT 11.1 SECONDS (9.7-12.2) 04/25/18 18:21 INR 1.0 04/25/18 18:21 APTT 31 SECONDS (21-34) 04/25/18 18:21 - Constitutional Appears: Non-toxic, No Acute Distress - Head Exam Head Exam: ATRAUMATIC, NORMAL INSPECTION, NORMOCEPHALIC - Eye Exam Eye Exam: EOMI, Normal appearance - ENT Exam ENT Exam: Mucous Membranes Moist, Normal Exam - Neck Exam Neck Exam: Full ROM, Normal Inspection - Respiratory Exam Respiratory Exam: NORMAL BREATHING PATTERN (on bipap) - Cardiovascular Exam Cardiovascular Exam: REGULAR RHYTHM, +S1, +S2 - GI/Abdominal Exam GI & Abdominal Exam: Distended (mild), Soft, Rebound. absent: Guarding, Rigid, Tenderness, Hernia Additional comments: dressing in place over RLQ- saturated, changed - Extremities Exam Extremities Exam: Normal Inspection - Neurological Exam Neurological Exam: Alert, Awake, CN II-XII Intact, Oriented x3 - Psychiatric Exam Psychiatric exam: Normal Affect, Normal Mood - Skin Skin Exam: Dry, Normal Color, Warm Assessment and Plan - Assessment and Plan (Free Text) Assessment: 68M POD#6 s/p ileostomy reversal, ileocecal anastomosis: having BM. Plan: Advanced to HHD diabetic diet Dressing changed today Cont PO pain meds only IV Abx OOBTC Ambulate PT/OT Further mgt as per primary team Will ALEJANDRA Hanna, PGY-2
[2018-05-06] MEDS: Ferric Sodium Gluconat Complex 125 MG in Sodium Chloride 0.9% 100 ML IVPB SCH (21:18)
--- NOTE | 2018-05-06 21:29 | PN ---
DATE: 05/06/2018 SUBJECTIVE: The patient is experiencing mild abdominal pain. No vomiting. He is tolerating full liquid diet and having bowel movement. PHYSICAL EXAMINATION: VITAL SIGNS: Blood pressure 125/78, heart rate 96, temperature 98.2, respirations 20. HEENT: Normocephalic. CHEST: Minimal rhonchi. HEART: S1 and S2 regular. ABDOMEN: Diminished bowel sounds. EXTREMITIES: No edema. LABORATORY DATA: SMA-7: Sodium 135, potassium 4.2, chloride 96, CO2 33, glucose 131, BUN 6 and creatinine 0.4. ASSESSMENT: 1. Status post reversal of ileostomy and ileocecal anastomosis. 2. Hypertension. 3. Chronic obstructive lung disease. 4. History of recent deep vein thrombosis and pulmonary embolism. RECOMMENDATIONS: Continue Advair 1 puff every 12 hours, Cardizem at 30 mg q.i.d., Dilaudid 1 mg intravenously every 4 hours p.r.n., Eliquis at 5 mg twice a day, ferric sodium gluconate complex infusion, Lopressor 25 mg twice a day, Protonix 40 mg intravenously once a day, Robitussin 200 mg p.o. q.i.d., Solu-Medrol 40 mg intravenously daily, Zosyn 3.375 gm intravenously every 6 hours. Mukesh Correia MD
--- NOTE | 2018-05-06 22:38 | CP.PCM.PN ---
Objective - Vital Signs/Intake and Output Vital Signs (last 24 hours): Temp Pulse Resp BP Pulse Ox 98.1 F 91 H 20 106/75 96 05/06/18 16:54 05/06/18 16:54 05/06/18 16:54 05/06/18 18:23 05/06/18 16:54 - Medications Medications: Current Medications Albuterol (Ventolin Hfa 90 Mcg/Actuation (8 G)) 1 puff INH RQ6 PRN PRN Reason: Shortness of Breath Albuterol/Ipratropium (Duoneb 3 Mg/0.5 Mg (3 Ml) Ud) 3 ml INH RQ6 [facility] Last Admin: 05/06/18 19:20 Dose: 3 ml Alprazolam (Xanax) 0.5 mg PO Q12 [facility] Last Admin: 05/06/18 21:18 Dose: 0.5 mg Apixaban (Eliquis) 5 mg PO BID [facility] Last Admin: 05/06/18 18:23 Dose: 5 mg Bismuth Subsalicylate (Pepto Bismol) 262 mg PO BID [facility] Last Admin: 05/06/18 18:23 Dose: 262 mg Budesonide (Pulmicort Respules) 0.5 mg INH RQ12 [facility] Last Admin: 05/06/18 19:20 Dose: 0.5 mg Diltiazem HCl (Cardizem) 30 mg PO QID [facility] Last Admin: 05/06/18 21:18 Dose: 30 mg Guaifenesin (Robitussin) 200 mg PO QID [facility] Last Admin: 05/06/18 21:18 Dose: 200 mg Piperacillin Sod/Tazobactam Sod (Zosyn 3.375 Gm Iv Premix) 3.375 gm in 50 mls @ 100 mls/hr IVPB Q6H [facility] PRN Reason: Protocol Last Admin: 05/06/18 18:25 Dose: 100 mls/hr Ferric Sodium Gluconate Complex 125 mg/ Sodium Chloride 110 mls @ 110 mls/hr IVPB Q24H [facility] Stop: 05/07/18 20:01 Last Admin: 05/06/18 21:18 Dose: 110 mls/hr Insulin Human Regular (Novolin R) 0 unit SC Q6 [facility] PRN Reason: Protocol Last Admin: 05/06/18 18:56 Dose: Not Given Lidocaine (Lidoderm) 1 ea TD DAILY [facility] Last Admin: 05/06/18 10:16 Dose: 1 ea Methylprednisolone (Solu-Medrol) 20 mg IVP DAILY [facility] Metoprolol Tartrate (Lopressor) 25 mg PO BID [facility] Last Admin: 05/06/18 18:23 Dose: 25 mg Multivitamins (Hexavitamin) 1 tab PO DAILY [facility] Last Admin: 05/06/18 10:16 Dose: 1 tab Ondansetron HCl (Zofran Inj) 4 mg IVP Q4 PRN PRN Reason: Nausea/Vomiting Oxycodone HCl (Oxycodone Immediate Release Tab) 5 mg PO Q6 PRN PRN Reason: Pain, moderate (4-7) Pantoprazole Sodium (Protonix Inj) 40 mg IVP DAILY [facility] Last Admin: 05/06/18 10:16 Dose: 40 mg Pregabalin (Lyrica) 75 mg PO BID [facility] Last Admin: 05/06/18 18:23 Dose: 75 mg Roflumilast (Daliresp) 500 mcg PO DAILY [facility] Last Admin: 05/06/18 10:16 Dose: 500 mcg Fluticasone/Salmeterol (Advair Diskus 250/50) 1 puff IH RQ12 [facility] Last Admin: 05/06/18 07:15 Dose: Not Given Simethicone (Mylicon Chew Tab) 80 mg PO TID PRN PRN Reason: GI distress - Labs Labs: 05/06/18 09:53 05/06/18 07:59 PT 11.1 SECONDS (9.7-12.2) 04/25/18 18:21 INR 1.0 04/25/18 18:21 APTT 31 SECONDS (21-34) 04/25/18 18:21 Assessment and Plan (1) COPD exacerbation Status: Acute (2) Abdominal pain Status: Acute (3) Colostomy complication Status: Chronic (4) Pulmonary embolism Status: Chronic (5) Tachyarrhythmia Status: Acute
[2018-05-06] MEDS: oxyCODONE 5 mg Immediate Release Tab PO PRN (22:44)
[2018-05-07] MEDS: Piperacill/Tazo 3.375gm in Dex 3.375 GM/50 ML BAG IVPB SCH ×4 (00:12→19:40)
[2018-05-07] MEDS: (Novolin R) Insulin Human Regular 100 units/ml vial SC SCH ×4 (00:43→18:55)
[2018-05-07] MEDS: Albuterol-Ipratrop 3 mg / 0.5 (3 ml) UD INH SCH ×4 (01:11→20:48)
[2018-05-07] MEDS: oxyCODONE 5 mg Immediate Release Tab PO PRN ×2 (03:30→13:16)
[2018-05-07] MEDS: Fluticasone-Salmeterol 250-50mcg Diskus IH SCH ×2 (07:25→20:49)
[2018-05-07] MEDS: Budesonide 0.5 mg/2 ml Inhal Susp UD INH SCH ×2 (07:27→20:48)
[2018-05-07] MEDS: Bismuth Subsalicylate 262 mg Chew Tab PO SCH ×2 (10:21→18:55)
[2018-05-07] MEDS: guaiFENesin 100 mg/5 ml Syrup UD PO SCH ×4 (10:21→21:52)
[2018-05-07] MEDS: Multiple Vitamins Tab PO SCH (10:21)
[2018-05-07] MEDS: MethylPREDNISolone 40 mg Vial IVP SCH (10:21)
[2018-05-07] MEDS: Lidocaine 5% Patch TD SCH (10:21)
--- NOTE | 2018-05-07 11:39 | PN ---
DATE: 05/06/2018 SUBJECTIVE: The patient is feeling better. He wants to eat solid food. No fever. No chills. No nausea or vomiting. He is on Solu-Medrol. His white cell count is high, but he is afebrile. No distress. His abdominal pain is improving. He is on Morphine. PHYSICAL EXAMINATION: VITAL SIGNS: Blood pressure is 105/72, pulse 91, respiratory rate 20, temperature 98.1. LUNGS: Decreased air entry. Few rhonchi. CVS: S1 and S2 regular. ABDOMEN: Soft. ASSESSMENT: 1. Status post reversal of colostomy. 2. Exacerbation of chronic obstructive pulmonary disease. 3. Anemia. 4. Steroid-induced diabetes. PLAN: Continue current medication and monitor the patient. Taper steroids, antibiotics, pain medication. Proceed diet to solid and if he tolerates possible discharge. Hal Garcia MD
--- NOTE | 2018-05-07 15:46 | CP.PCM.PN ---
Subjective - Date & Time of Evaluation Date of Evaluation: 05/07/18 Time of Evaluation: 06:45 - Subjective Subjective: Patient seen and examined. No acute events over night. Wound healing appropriately. Tolerating diet having BMs. Objective - Vital Signs/Intake and Output Vital Signs (last 24 hours): Temp Pulse Resp BP Pulse Ox 98.1 F 95 H 20 124/81 99 05/07/18 00:00 05/07/18 07:40 05/07/18 00:00 05/07/18 10:21 05/07/18 00:00 Intake and Output: 05/07/18 05/07/18 06:59 18:59 Intake Total 220 50 Output Total 800 Balance -580 50 - Medications Medications: Current Medications Albuterol (Ventolin Hfa 90 Mcg/Actuation (8 G)) 1 puff INH RQ6 PRN PRN Reason: Shortness of Breath Albuterol/Ipratropium (Duoneb 3 Mg/0.5 Mg (3 Ml) Ud) 3 ml INH RQ6 [facility] Last Admin: 05/07/18 13:27 Dose: 3 ml Alprazolam (Xanax) 0.5 mg PO Q12 [facility] Last Admin: 05/07/18 10:21 Dose: 0.5 mg Apixaban (Eliquis) 5 mg PO BID [facility] Last Admin: 05/07/18 10:21 Dose: 5 mg Bismuth Subsalicylate (Pepto Bismol) 262 mg PO BID [facility] Last Admin: 05/07/18 10:21 Dose: 262 mg Budesonide (Pulmicort Respules) 0.5 mg INH RQ12 [facility] Last Admin: 05/07/18 07:27 Dose: 0.5 mg Diltiazem HCl (Cardizem) 30 mg PO QID [facility] Last Admin: 05/07/18 13:06 Dose: 30 mg Guaifenesin (Robitussin) 200 mg PO QID [facility] Last Admin: 05/07/18 13:10 Dose: 200 mg Piperacillin Sod/Tazobactam Sod (Zosyn 3.375 Gm Iv Premix) 3.375 gm in 50 mls @ 100 mls/hr IVPB Q6H [facility]; Protocol Last Admin: 05/07/18 13:09 Dose: 100 mls/hr Ferric Sodium Gluconate Complex 125 mg/ Sodium Chloride 110 mls @ 110 mls/hr IVPB Q24H [facility] Stop: 05/07/18 20:01 Last Admin: 05/06/18 21:18 Dose: 110 mls/hr Insulin Human Regular (Novolin R) 0 unit SC Q6 [facility]; Protocol Last Admin: 05/07/18 12:52 Dose: 1 unit Lidocaine (Lidoderm) 1 ea TD DAILY [facility] Last Admin: 05/07/18 10:21 Dose: 1 ea Methylprednisolone (Solu-Medrol) 20 mg IVP DAILY [facility] Last Admin: 05/07/18 10:21 Dose: 20 mg Metoprolol Tartrate (Lopressor) 25 mg PO BID [facility] Last Admin: 05/07/18 10:21 Dose: 25 mg Multivitamins (Hexavitamin) 1 tab PO DAILY [facility] Last Admin: 05/07/18 10:21 Dose: 1 tab Ondansetron HCl (Zofran Inj) 4 mg IVP Q4 PRN PRN Reason: Nausea/Vomiting Oxycodone HCl (Oxycodone Immediate Release Tab) 5 mg PO Q6 PRN PRN Reason: Pain, moderate (4-7) Last Admin: 05/07/18 03:30 Dose: 5 mg Pantoprazole Sodium (Protonix Inj) 40 mg IVP DAILY [facility] Last Admin: 05/07/18 10:21 Dose: 40 mg Pregabalin (Lyrica) 75 mg PO BID [facility] Last Admin: 05/07/18 10:21 Dose: 75 mg Roflumilast (Daliresp) 500 mcg PO DAILY [facility] Last Admin: 05/07/18 10:21 Dose: 500 mcg Fluticasone/Salmeterol (Advair Diskus 250/50) 1 puff IH RQ12 [facility] Last Admin: 05/07/18 07:25 Dose: Not Given Simethicone (Mylicon Chew Tab) 80 mg PO TID PRN PRN Reason: GI distress - Labs Labs: 05/06/18 09:53 05/06/18 07:59 PT 11.1 SECONDS (9.7-12.2) 04/25/18 18:21 INR 1.0 04/25/18 18:21 APTT 31 SECONDS (21-34) 04/25/18 18:21 - Constitutional Appears: No Acute Distress - Head Exam Head Exam: NORMOCEPHALIC - Eye Exam Eye Exam: Normal appearance - ENT Exam ENT Exam: Mucous Membranes Moist - Respiratory Exam Respiratory Exam: NORMAL BREATHING PATTERN - Cardiovascular Exam Cardiovascular Exam: +S1, +S2 - GI/Abdominal Exam GI & Abdominal Exam: Soft Additional comments: Wound slowly healing No purulent drainage - Neurological Exam Neurological Exam: Alert, Awake, Oriented x3 - Psychiatric Exam Psychiatric exam: Normal Mood - Skin Skin Exam: Dry, Intact, Warm Assessment and Plan - Assessment and Plan (Free Text) Assessment: 68M POD#7 s/p ileostomy reversal, ileocecal anastomosis: having BM. Plan: C/w HHD diabetic diet Dressing changed today Cont PO pain meds only IV Abx OOBTC Ambulate PT/OT Further mgt as per primary team Likely d/c tomorrow ALEJANDRA Roach PGY3
[2018-05-07] MEDS: Ferric Sodium Gluconat Complex 125 MG in Sodium Chloride 0.9% 100 ML IVPB SCH (20:39)
--- NOTE | 2018-05-07 23:13 | PN ---
DATE: 05/07/2018 SUBJECTIVE: The patient tolerated solid diet today. He denies any chest pain. He is currently on BiPAP. PHYSICAL EXAMINATION: VITAL SIGNS: Blood pressure 112/66, heart rate 91, temperature 98.6, respirations 20. HEENT: Normocephalic. CHEST: Bilateral rhonchi. HEART: S1, S2 regular. ABDOMEN: Diminished bowel sounds. EXTREMITIES: No edema. LABORATORY DATA: Today's blood sugars 184, 125, 182, and 342. ASSESSMENT: 1. Systemic hypertension. 2. Uncontrolled diabetes mellitus. 3. Status post reversal ileostomy and ileocecal anastomosis. 4. Mild anemia. 5. Chronic obstructive lung disease. 6. Deep venous thrombosis and recent pulmonary embolism. RECOMMENDATIONS: Continue Cardizem at 30 mg 4 times a day, albuterol inhaler, every six hours, Eliquis 5 mg twice a day, ferric gluconate 110 mL IV piggyback daily, Lopressor 25 mg twice a day, oxycodone 5 mg p.o. every six hours p.r.n. for moderate pain, Protonix 40 mg intravenously daily, albuterol inhaler one puff every six hours, Zosyn 3.375 g intravenously every six hours. Mukesh Correia MD
[2018-05-08] MEDS: (Novolin R) Insulin Human Regular 100 units/ml vial SC SCH ×4 (00:38→17:19)
[2018-05-08] MEDS: Albuterol-Ipratrop 3 mg / 0.5 (3 ml) UD INH SCH ×4 (01:51→19:52)
[2018-05-08] MEDS: Piperacill/Tazo 3.375gm in Dex 3.375 GM/50 ML BAG IVPB SCH ×4 (02:14→19:37)
[2018-05-08] MEDS: oxyCODONE 5 mg Immediate Release Tab PO PRN ×2 (06:30→13:49)
[2018-05-08] MEDS: Fluticasone-Salmeterol 250-50mcg Diskus IH SCH ×2 (08:29→19:52)
[2018-05-08] MEDS: Budesonide 0.5 mg/2 ml Inhal Susp UD INH SCH ×2 (08:30→19:52)
[2018-05-08] MEDS: Bismuth Subsalicylate 262 mg Chew Tab PO SCH ×2 (10:00→17:20)
[2018-05-08] MEDS: guaiFENesin 100 mg/5 ml Syrup UD PO SCH ×4 (10:00→21:36)
[2018-05-08] MEDS: Multiple Vitamins Tab PO SCH (10:00)
[2018-05-08] MEDS: MethylPREDNISolone 40 mg Vial IVP SCH (10:01)
[2018-05-08] MEDS: Lidocaine 5% Patch TD SCH (10:02)
[2018-05-08 11:23] LABS: BASO % 0.2 % (0.0-2.0); EOS % 0.1 % (0.0-4.0); HEMOGLOBIN 10.9 g/dL (12.0-18.0); LYMPH # 0.9 K/uL (1.0-4.3); LYMPH % 8.3 % (20.0-40.0); MEAN CELL VOLUME 71.5 fL (80.0-94.0); MEAN CORPUSCULAR HGB CONC 32.1 g/dL (33.0-37.0); MEAN PLATELET VOLUME 8.4 fL (7.2-11.7); MONO # 0.7 K/uL (0.0-0.8); MONO % 6.2 % (0.0-10.0); NEUT # 9.7 K/uL (1.8-7.0); NEUT % 85.2 % (50.0-75.0); PLATELET COUNT 255 K/uL (130-400); RBC 4.75 Mil/uL (4.40-5.90); WHITE BLOOD COUNT 11.4 K/uL (4.8-10.8)
[2018-05-08 11:50] LABS: ANISOCYTOSIS SLIGHT; HYPOCHROMIC SLIGHT; LYMPHOCYTE 10 % (20-40); MONOCYTE 5 % (0-10); NEUTROPHIL 85 % (50-75); PLATELET ESTIMATE NORMAL (NORMAL); POIKILOCYTOSIS SLIGHT; TOTAL CELLS COUNTED 100
[2018-05-08 11:51] LABS: BURR CELLS SLIGHT; MICROCYTOSIS SLIGHT; OVALOCYTES SLIGHT; TARGET CELLS SLIGHT
[2018-05-08 12:08] LABS: ALB/GLOB RATIO 1.3 (1.0-2.1); ALBUMIN 3.4 g/dL (3.5-5.0); ALT/SGPT 30 U/L (21-72); AST/SGOT 23 U/L (17-59); BLOOD UREA NITROGEN 6 mg/dL (9-20); CALCIUM 9.4 mg/dl (8.6-10.4); GFR NON-AFRICAN AMERICAN > 60
--- NOTE | 2018-05-08 14:39 | CP.PCM.PN ---
Subjective - Date & Time of Evaluation Date of Evaluation: 05/08/18 Time of Evaluation: 10:00 - Subjective Subjective: General surgery progress note for Dr Barak Hanna, PGY-2 Pt S & E at bedside at 0950 Pt reports ab pain improving. Continues to have BM, flatus, tolerating diet. Denies N & V, F & C. Reports getting OOBTC. Objective - Vital Signs/Intake and Output Vital Signs (last 24 hours): Temp Pulse Resp BP Pulse Ox 97.6 F 89 20 116/73 100 05/08/18 08:09 05/08/18 13:50 05/08/18 08:09 05/08/18 13:50 05/08/18 08:09 Intake and Output: 05/08/18 05/08/18 06:59 18:59 Intake Total 550 Output Total 1500 Balance -950 - Medications Medications: Current Medications Albuterol (Ventolin Hfa 90 Mcg/Actuation (8 G)) 1 puff INH RQ6 PRN PRN Reason: Shortness of Breath Albuterol/Ipratropium (Duoneb 3 Mg/0.5 Mg (3 Ml) Ud) 3 ml INH RQ6 [facility] Last Admin: 05/08/18 08:30 Dose: 3 ml Alprazolam (Xanax) 0.5 mg PO Q12 [facility] Last Admin: 05/08/18 10:00 Dose: 0.5 mg Apixaban (Eliquis) 5 mg PO BID [facility] Last Admin: 05/08/18 10:00 Dose: 5 mg Bismuth Subsalicylate (Pepto Bismol) 262 mg PO BID [facility] Last Admin: 05/08/18 10:00 Dose: 262 mg Budesonide (Pulmicort Respules) 0.5 mg INH RQ12 [facility] Last Admin: 05/08/18 08:30 Dose: 0.5 mg Diltiazem HCl (Cardizem) 30 mg PO QID [facility] Last Admin: 05/08/18 13:50 Dose: 30 mg Guaifenesin (Robitussin) 200 mg PO QID [facility] Last Admin: 05/08/18 13:20 Dose: 200 mg Piperacillin Sod/Tazobactam Sod (Zosyn 3.375 Gm Iv Premix) 3.375 gm in 50 mls @ 100 mls/hr IVPB Q6H [facility]; Protocol Last Admin: 05/08/18 13:20 Dose: 100 mls/hr Potassium Chloride (Potassium Chloride 20 Meq/100 Ml) 20 meq in 100 mls @ 50 mls/hr IVPB Q2 [facility] Stop: 05/08/18 19:59 Last Admin: 05/08/18 14:36 Dose: 50 mls/hr Insulin Human Regular (Novolin R) 0 unit SC Q6 [facility]; Protocol Last Admin: 05/08/18 12:21 Dose: 2 unit Lidocaine (Lidoderm) 1 ea TD DAILY [facility] Last Admin: 05/08/18 10:02 Dose: 1 ea Methylprednisolone (Solu-Medrol) 20 mg IVP DAILY [facility] Last Admin: 05/08/18 10:01 Dose: 20 mg Metoprolol Tartrate (Lopressor) 25 mg PO BID [facility] Last Admin: 05/08/18 10:01 Dose: 25 mg Multivitamins (Hexavitamin) 1 tab PO DAILY [facility] Last Admin: 05/08/18 10:00 Dose: 1 tab Ondansetron HCl (Zofran Inj) 4 mg IVP Q4 PRN PRN Reason: Nausea/Vomiting Oxycodone HCl (Oxycodone Immediate Release Tab) 5 mg PO Q6 PRN PRN Reason: Pain, moderate (4-7) Last Admin: 05/08/18 13:49 Dose: 5 mg Pantoprazole Sodium (Protonix Inj) 40 mg IVP DAILY [facility] Last Admin: 05/08/18 10:01 Dose: 40 mg Pregabalin (Lyrica) 75 mg PO BID [facility] Last Admin: 05/08/18 10:00 Dose: 75 mg Roflumilast (Daliresp) 500 mcg PO DAILY [facility] Last Admin: 05/08/18 10:00 Dose: 500 mcg Fluticasone/Salmeterol (Advair Diskus 250/50) 1 puff IH RQ12 [facility] Last Admin: 05/08/18 08:29 Dose: 1 puff Simethicone (Mylicon Chew Tab) 80 mg PO TID PRN PRN Reason: GI distress - Labs Labs: 05/08/18 11:15 05/08/18 11:15 PT 11.1 SECONDS (9.7-12.2) 04/25/18 18:21 INR 1.0 04/25/18 18:21 APTT 31 SECONDS (21-34) 04/25/18 18:21 - Constitutional Appears: Non-toxic, No Acute Distress - Head Exam Head Exam: ATRAUMATIC, NORMAL INSPECTION, NORMOCEPHALIC - Eye Exam Eye Exam: EOMI, Normal appearance - ENT Exam ENT Exam: Mucous Membranes Moist, Normal Exam - Neck Exam Neck Exam: Full ROM, Normal Inspection - Respiratory Exam Respiratory Exam: NORMAL BREATHING PATTERN (on O2 via NC) - GI/Abdominal Exam GI & Abdominal Exam: Distended (mild), Soft. absent: Firm, Guarding, Rigid, Tenderness Additional comments: wound with granulation tissue at base, dressing with serous strike through- changed - Extremities Exam Extremities Exam: Normal Inspection - Neurological Exam Neurological Exam: Alert, Awake, CN II-XII Intact, Oriented x3 - Psychiatric Exam Psychiatric exam: Normal Affect, Normal Mood - Skin Skin Exam: Dry, Normal Color, Warm Assessment and Plan - Assessment and Plan (Free Text) Assessment: 68M POD#7 s/p ileostomy reversal, ileocecal anastomosis: having BM, flatus. Plan: Cont w/HHD, DM diet Dressing changed today Cont PO pain meds only IV Abx as per primary OOBTC Ambulate PT/OT Further mgmt as per primary team D/c planning ALEJANDRA Hanna, PGY-2
--- NOTE | 2018-05-08 20:42 | PN ---
DATE: 05/08/2018 SUBJECTIVE: The patient has mild abdominal discomfort; however, he does tolerate a regular diet. He denies chest pain. He was able to stand up with a walker and ambulate with physical therapy team. PHYSICAL EXAMINATION: VITAL SIGNS: Blood pressure 116/73, heart rate 96, temperature 97.6, and respiration 20. HEENT: Normocephalic. CHEST: Bilateral rhonchi. HEART: S1, S2 regular. ABDOMEN: Soft. EXTREMITIES: No edema. LABORATORY DATA: SMA-7: Sodium 137, potassium 2.6, chloride 97, CO2 of 33, glucose 141, BUN 60, and creatinine 0.5. Today's hemoglobin and hematocrit 10.9, and 34, white count 11.4, platelet count 155,000. ASSESSMENT: 1. Status post reversal of ileostomy and ileocecal anastomosis. 2. Chronic obstructive lung disease. 3. Hypertension. 4. History of recent DVT and pulmonary embolism. 5. Hypokalemia. RECOMMENDATIONS: Continue Cardizem at 30 mg p.o. four times daily, Eliquis 5 mg twice a day, albuterol inhaler and Advair inhaler. Continue Lopressor 25 mg twice a day. The patient is currently receiving a total of 60 mEq of intravenous potassium chloride replacement. Continue Solu-Medrol at 20 mg intravenously once day, IV Zosyn at 3.375 g intravenously every 6 hours, Mukesh Correia MD
--- NOTE | 2018-05-08 22:32 | CP.PCM.PN ---
Subjective - Date & Time of Evaluation Date of Evaluation: 05/08/18 Objective - Vital Signs/Intake and Output Vital Signs (last 24 hours): Temp Pulse Resp BP Pulse Ox 97.9 F 92 H 20 113/62 100 05/08/18 15:46 05/08/18 19:54 05/08/18 15:46 05/08/18 21:39 05/08/18 15:46 Intake and Output: 05/08/18 05/09/18 18:59 06:59 Intake Total 50 Balance 50 - Medications Medications: Current Medications Albuterol (Ventolin Hfa 90 Mcg/Actuation (8 G)) 1 puff INH RQ6 PRN PRN Reason: Shortness of Breath Albuterol/Ipratropium (Duoneb 3 Mg/0.5 Mg (3 Ml) Ud) 3 ml INH RQ6 REPLACED BY [facility] Last Admin: 05/08/18 19:52 Dose: 3 ml Alprazolam (Xanax) 0.5 mg PO Q12 [facility] Last Admin: 05/08/18 21:36 Dose: 0.5 mg Apixaban (Eliquis) 5 mg PO BID REPLACED BY [facility] Last Admin: 05/08/18 17:13 Dose: 5 mg Bismuth Subsalicylate (Pepto Bismol) 262 mg PO BID REPLACED BY [facility] Last Admin: 05/08/18 17:20 Dose: 262 mg Budesonide (Pulmicort Respules) 0.5 mg INH RQ12 [facility] Last Admin: 05/08/18 19:52 Dose: 0.5 mg Diltiazem HCl (Cardizem) 30 mg PO QID [facility]PL[facility]ED BY [facility] Last Admin: 05/08/18 21:36 Dose: 30 mg Guaifenesin (Robitussin) 200 mg PO QID REPL[facility]ED BY [facility] Last Admin: 05/08/18 21:36 Dose: 200 mg Piperacillin Sod/Tazobactam Sod (Zosyn 3.375 Gm Iv Premix) 3.375 gm in 50 mls @ 100 mls/hr IVPB Q6H REPLACED BY [facility]; Protocol Last Admin: 05/08/18 19:37 Dose: 100 mls/hr Insulin Human Regular (Novolin R) 0 unit SC Q6 [facility]; Protocol Last Admin: 05/08/18 17:19 Dose: 3 unit Lidocaine (Lidoderm) 1 ea TD DAILY [facility] BY [facility] Last Admin: 05/08/18 10:02 Dose: 1 ea Methylprednisolone (Solu-Medrol) 20 mg IVP DAILY [facility] BY [facility] Last Admin: 05/08/18 10:01 Dose: 20 mg Metoprolol Tartrate (Lopressor) 25 mg PO BID REPLACED BY [facility] Last Admin: 05/08/18 17:12 Dose: 25 mg Multivitamins (Hexavitamin) 1 tab PO DAILY [facility] BY [facility] Last Admin: 05/08/18 10:00 Dose: 1 tab Ondansetron HCl (Zofran Inj) 4 mg IVP Q4 PRN PRN Reason: Nausea/Vomiting Oxycodone HCl (Oxycodone Immediate Release Tab) 5 mg PO Q6 PRN PRN Reason: Pain, moderate (4-7) Last Admin: 05/08/18 13:49 Dose: 5 mg Pantoprazole Sodium (Protonix Inj) 40 mg IVP DAILY [facility]ED BY [facility] Last Admin: 05/08/18 10:01 Dose: 40 mg Pregabalin (Lyrica) 75 mg PO BID REPLACED BY [facility] Last Admin: 05/08/18 17:13 Dose: 75 mg Roflumilast (Daliresp) 500 mcg PO DAILY [facility]ED BY [facility] Last Admin: 05/08/18 10:00 Dose: 500 mcg Fluticasone/Salmeterol (Advair Diskus 250/50) 1 puff IH RQ12 REPLACED BY [facility] Last Admin: 05/08/18 19:52 Dose: 1 puff Simethicone (Mylicon Chew Tab) 80 mg PO TID PRN PRN Reason: GI distress - Labs Labs: 05/08/18 11:15 05/08/18 11:15 PT 11.1 SECONDS (9.7-12.2) 04/25/18 18:21 INR 1.0 04/25/18 18:21 APTT 31 SECONDS (21-34) 04/25/18 18:21 Assessment and Plan (1) COPD exacerbation Status: Acute (2) Abdominal pain Status: Acute (3) Colostomy complication Status: Chronic (4) Pulmonary embolism Status: Chronic (5) Tachyarrhythmia Status: Acute
[2018-05-09] MEDS: Piperacill/Tazo 3.375gm in Dex 3.375 GM/50 ML BAG IVPB SCH ×4 (00:59→18:27)
[2018-05-09] MEDS: (Novolin R) Insulin Human Regular 100 units/ml vial SC SCH ×4 (01:00→18:24)
[2018-05-09] MEDS: Albuterol-Ipratrop 3 mg / 0.5 (3 ml) UD INH SCH ×4 (01:27→19:30)
[2018-05-09] MEDS: oxyCODONE 5 mg Immediate Release Tab PO PRN ×3 (03:49→18:22)
[2018-05-09 07:17] LABS: HEMOGLOBIN 9.9 g/dL (12.0-18.0); MEAN CELL VOLUME 71.4 fL (80.0-94.0); MEAN CORPUSCULAR HEMOGLOBIN 23.1 pg (27.0-31.0); MEAN CORPUSCULAR HGB CONC 32.4 g/dL (33.0-37.0); MEAN PLATELET VOLUME 8.1 fL (7.2-11.7); RBC 4.29 Mil/uL (4.40-5.90); RED CELL DISTRIBUTION WIDTH 22.6 % (11.5-14.5); WHITE BLOOD COUNT 11.4 K/uL (4.8-10.8)
--- NOTE | 2018-05-09 07:24 | CP.PCM.PN ---
Subjective - Date & Time of Evaluation Date of Evaluation: 05/09/18 Time of Evaluation: 07:22 - Subjective Subjective: General surgery progress note for Dr. Barak Hanna, PGY-2 Pt S & E at bedside at 0650 Pt reports ab pain overnight. States that his dressing has been saturating overnight. Objective - Vital Signs/Intake and Output Vital Signs (last 24 hours): Temp Pulse Resp BP Pulse Ox 98.0 F 91 H 20 107/71 96 05/09/18 00:00 05/09/18 05:14 05/09/18 00:00 05/09/18 00:00 05/09/18 00:00 Intake and Output: 05/09/18 05/09/18 06:59 18:59 Intake Total 130 Output Total 0 Balance 130 - Medications Medications: Current Medications Albuterol (Ventolin Hfa 90 Mcg/Actuation (8 G)) 1 puff INH RQ6 PRN PRN Reason: Shortness of Breath Albuterol/Ipratropium (Duoneb 3 Mg/0.5 Mg (3 Ml) Ud) 3 ml INH RQ6 [facility] Last Admin: 05/09/18 01:27 Dose: 3 ml Alprazolam (Xanax) 0.5 mg PO Q12 [facility] Last Admin: 05/08/18 21:36 Dose: 0.5 mg Apixaban (Eliquis) 5 mg PO BID [facility] Last Admin: 05/08/18 17:13 Dose: 5 mg Bismuth Subsalicylate (Pepto Bismol) 262 mg PO BID [facility] Last Admin: 05/08/18 17:20 Dose: 262 mg Budesonide (Pulmicort Respules) 0.5 mg INH RQ12 [facility] Last Admin: 05/08/18 19:52 Dose: 0.5 mg Diltiazem HCl (Cardizem) 30 mg PO QID [facility] Last Admin: 05/08/18 21:36 Dose: 30 mg Guaifenesin (Robitussin) 200 mg PO QID [facility] Last Admin: 05/08/18 21:36 Dose: 200 mg Piperacillin Sod/Tazobactam Sod (Zosyn 3.375 Gm Iv Premix) 3.375 gm in 50 mls @ 100 mls/hr IVPB Q6H [facility]; Protocol Last Admin: 05/09/18 06:27 Dose: 100 mls/hr Insulin Human Regular (Novolin R) 0 unit SC Q6 [facility]; Protocol Last Admin: 05/09/18 06:25 Dose: Not Given Lidocaine (Lidoderm) 1 ea TD DAILY [facility] Last Admin: 05/08/18 10:02 Dose: 1 ea Methylprednisolone (Solu-Medrol) 20 mg IVP DAILY [facility] Last Admin: 05/08/18 10:01 Dose: 20 mg Metoprolol Tartrate (Lopressor) 25 mg PO BID [facility] Last Admin: 05/08/18 17:12 Dose: 25 mg Multivitamins (Hexavitamin) 1 tab PO DAILY [facility] Last Admin: 05/08/18 10:00 Dose: 1 tab Ondansetron HCl (Zofran Inj) 4 mg IVP Q4 PRN PRN Reason: Nausea/Vomiting Oxycodone HCl (Oxycodone Immediate Release Tab) 5 mg PO Q6 PRN PRN Reason: Pain, moderate (4-7) Last Admin: 05/09/18 03:49 Dose: 5 mg Pantoprazole Sodium (Protonix Inj) 40 mg IVP DAILY [facility] Last Admin: 05/08/18 10:01 Dose: 40 mg Pregabalin (Lyrica) 75 mg PO BID [facility] Last Admin: 05/08/18 17:13 Dose: 75 mg Roflumilast (Daliresp) 500 mcg PO DAILY [facility] Last Admin: 05/08/18 10:00 Dose: 500 mcg Fluticasone/Salmeterol (Advair Diskus 250/50) 1 puff IH RQ12 [facility] Last Admin: 05/08/18 19:52 Dose: 1 puff Simethicone (Mylicon Chew Tab) 80 mg PO TID PRN PRN Reason: GI distress - Labs Labs: 05/09/18 07:06 05/08/18 11:15 PT 11.1 SECONDS (9.7-12.2) 04/25/18 18:21 INR 1.0 04/25/18 18:21 APTT 31 SECONDS (21-34) 04/25/18 18:21 - Constitutional Appears: Non-toxic, No Acute Distress - Head Exam Head Exam: ATRAUMATIC, NORMAL INSPECTION, NORMOCEPHALIC - Eye Exam Eye Exam: EOMI, Normal appearance - ENT Exam ENT Exam: Mucous Membranes Moist, Normal Exam - Respiratory Exam Respiratory Exam: NORMAL BREATHING PATTERN (on bipap) - Cardiovascular Exam Cardiovascular Exam: REGULAR RHYTHM, +S1, +S2 - GI/Abdominal Exam GI & Abdominal Exam: Distended (mild), Soft, Tenderness (mild). absent: Guarding, Rigid Additional comments: RUQ ab wound with feculant drainage, dressing saturated - Neurological Exam Neurological Exam: Alert, Awake, CN II-XII Intact, Oriented x3 - Psychiatric Exam Psychiatric exam: Normal Affect, Normal Mood - Skin Skin Exam: Dry, Normal Color, Warm Assessment and Plan - Assessment and Plan (Free Text) Assessment: 68M POD#8 s/p ileostomy reversal, ileocecal anastomosis: having BM, fectulant drainage from abdominal wound Plan: Ostomy bag over wound ok for CLD FU CT ab FU AM labs Monitor ostomy output IV Abx PT/OT OOBTC Further mgmt as per primary team Further recs pending attending evaluation Will DW Dr. Emilia Hanna, PGY-2
[2018-05-09 07:25] LABS: INR 1.3; PROTHROMBIN TIME 13.9 SECONDS (9.7-12.2)
[2018-05-09 07:39] LABS: BLOOD UREA NITROGEN 5 mg/dL (9-20); CALCIUM 8.9 mg/dl (8.6-10.4); GFR NON-AFRICAN AMERICAN > 60
[2018-05-09] MEDS: Fluticasone-Salmeterol 250-50mcg Diskus IH SCH ×2 (08:47→22:54)
[2018-05-09] MEDS: Budesonide 0.5 mg/2 ml Inhal Susp UD INH SCH ×2 (08:47→22:56)
[2018-05-09] MEDS ORDERED: Iohexol 240 (50 ml) PO ONE ×2 (09:15→10:00)
[2018-05-09] MEDS: Multiple Vitamins Tab PO SCH (10:32)
[2018-05-09] MEDS: MethylPREDNISolone 40 mg Vial IVP SCH (10:33)
[2018-05-09] MEDS: guaiFENesin 100 mg/5 ml Syrup UD PO SCH ×4 (10:33→21:47)
[2018-05-09] MEDS: Lidocaine 5% Patch TD SCH (10:34)
[2018-05-09] MEDS: Bismuth Subsalicylate 262 mg Chew Tab PO SCH ×2 (11:00→18:22)
--- NOTE | 2018-05-09 17:26 | CT ---
Date of service: 05/09/2018 PROCEDURE: CT Abdomen and Pelvis with contrast HISTORY: leaking wound COMPARISON: 04/09/2018 and 04/25/[address] scans of the abdomen and pelvis. TECHNIQUE: Oral contrast only. Radiation dose: Total exam DLP = 627.69 mGy-cm. This CT exam was performed using one or more of the following dose reduction techniques: Automated exposure control, adjustment of the mA and/or kV according to patient size, and/or use of iterative reconstruction technique. FINDINGS: LOWER THORAX: Trace left pleural effusion a new finding compared to the prior study. LIVER: Unremarkable. No gross lesion or ductal dilatation. GALLBLADDER AND BILE DUCTS: Unremarkable. PANCREAS: Unremarkable. No gross lesion or ductal dilatation. SPLEEN: Unremarkable. ADRENALS: Unremarkable. No mass. KIDNEYS AND URETERS: Unremarkable. No hydronephrosis. No solid mass. VASCULATURE: Unremarkable. No aortic aneurysm. BOWEL: New right lower quadrant inflammatory changes extending from the ostomy to the adjacent underlying intra-abdominal she loops of bowel. She this is interposed between the anastomotic suture line and the ostomy. Tiny punctate foci of air within the affected loop of bowel. Additional inflammatory changes affect the skin surface from the ostomy site to the midline over a distance of approximately 7 cm. Cutaneous and subcutaneous diminished change 14 mm also a new finding. Additional involvement of transverse colon also right upper quadrant extending to the midline. No suspicious abnormalities distally other than fluid filled colon. APPENDIX: Normal appendix. PERITONEUM: Unremarkable. No free fluid. No free air. LYMPH NODES: Unremarkable. No enlarged lymph nodes. BLADDER: Unremarkable. REPRODUCTIVE: Unremarkable. BONES: No acute fracture. Degenerative changes L1-L2. Compression deformity with sclerosis L1 vertebral body a stable finding. Multilevel degenerative changes thoracolumbar spine are stable. She OTHER FINDINGS: None. IMPRESSION: Extensive inflammatory changes affecting colon at the ostomy site and extending to the remainder of the right bradford colon. The descending colon is unaffected. . Tiny punctate foci of air affecting the colon can be seen consistent with acute inflammatory process. There is no drainable collection.However fluid and debris can be seen throughout the left hemicolon Additional benign and/or incidental findings described above.
--- NOTE | 2018-05-09 21:37 | PN ---
DATE: 05/09/2018 SUBJECTIVE: The patient is noted to have leakage from the surgical site. He denies any chest pain. He is currently kept on liquid diet. PHYSICAL EXAMINATION: VITAL SIGNS: Blood pressure 102/61, heart rate 73, temperature 98.1, and respirations 20. HEENT: Normocephalic. CHEST: Bilateral rhonchi. HEART: S1 and S2 regular. EXTREMITIES: Significant ecchymosis noted. LABORATORY DATA: Today's INR is 1.3. ASSESSMENT: 1. Status post revision of ileostomy and ileocecal anastomosis. 2. Recent pulmonary embolism and left femoral vein deep vein thrombosis. 3. Significant lower extremity ecchymosis. 4. Chronic obstructive lung disease. 5. Sinus tachycardia. RECOMMENDATIONS: I will reduce Eliquis to 2.5 mg orally twice a day. Continue Lopressor 25 mg twice a day, Cardizem at 30 mg 4 times daily, Solu-Medrol 20 mg intravenously daily, Zosyn 3.375 g intravenously every 6 hours. I will follow abdomen and pelvis CT scan performed today. Mukesh Correia MD
--- NOTE | 2018-05-09 23:58 | CP.PCM.PN ---
Objective - Vital Signs/Intake and Output Vital Signs (last 24 hours): Temp Pulse Resp BP Pulse Ox 98.1 F 80 20 117/74 95 05/09/18 15:00 05/09/18 21:47 05/09/18 15:00 05/09/18 21:47 05/09/18 15:00 Intake and Output: 05/09/18 05/10/18 18:59 06:59 Intake Total 350 Output Total 500 301 Balance -150 -301 - Medications Medications: Current Medications Albuterol (Ventolin Hfa 90 Mcg/Actuation (8 G)) 1 puff INH RQ6 PRN PRN Reason: Shortness of Breath Albuterol/Ipratropium (Duoneb 3 Mg/0.5 Mg (3 Ml) Ud) 3 ml INH RQ6 [facility] Last Admin: 05/09/18 19:30 Dose: 3 ml Alprazolam (Xanax) 0.5 mg PO Q12 [facility] Last Admin: 05/09/18 21:48 Dose: 0.5 mg Apixaban (Eliquis) 2.5 mg PO BID [facility] Last Admin: 05/09/18 18:00 Dose: 2.5 mg Bismuth Subsalicylate (Pepto Bismol) 262 mg PO BID [facility] Last Admin: 05/09/18 18:22 Dose: 262 mg Budesonide (Pulmicort Respules) 0.5 mg INH RQ12 [facility] Last Admin: 05/09/18 22:56 Dose: Not Given Diltiazem HCl (Cardizem) 30 mg PO QID [facility] Last Admin: 05/09/18 21:48 Dose: 30 mg Guaifenesin (Robitussin) 200 mg PO QID [facility] Last Admin: 05/09/18 21:47 Dose: 200 mg Piperacillin Sod/Tazobactam Sod (Zosyn 3.375 Gm Iv Premix) 3.375 gm in 50 mls @ 100 mls/hr IVPB Q6H [facility]; Protocol Last Admin: 05/09/18 18:27 Dose: 100 mls/hr Insulin Human Regular (Novolin R) 0 unit SC Q6 [facility]; Protocol Last Admin: 05/09/18 18:24 Dose: 1 unit Lidocaine (Lidoderm) 1 ea TD DAILY [facility] Last Admin: 05/09/18 10:34 Dose: 1 ea Methylprednisolone (Solu-Medrol) 20 mg IVP DAILY [facility] Last Admin: 05/09/18 10:33 Dose: 20 mg Metoprolol Tartrate (Lopressor) 25 mg PO BID [facility] Last Admin: 05/09/18 18:23 Dose: 25 mg Multivitamins (Hexavitamin) 1 tab PO DAILY [facility] Last Admin: 05/09/18 10:32 Dose: 1 tab Ondansetron HCl (Zofran Inj) 4 mg IVP Q4 PRN PRN Reason: Nausea/Vomiting Oxycodone HCl (Oxycodone Immediate Release Tab) 5 mg PO Q6 PRN PRN Reason: Pain, moderate (4-7) Last Admin: 05/09/18 18:22 Dose: 5 mg Pantoprazole Sodium (Protonix Ec Tab) 40 mg PO DAILY [facility] Pregabalin (Lyrica) 75 mg PO BID [facility] Last Admin: 05/09/18 18:23 Dose: 75 mg Roflumilast (Daliresp) 500 mcg PO DAILY [facility] Last Admin: 05/09/18 10:32 Dose: 500 mcg Fluticasone/Salmeterol (Advair Diskus 250/50) 1 puff IH RQ12 [facility] Last Admin: 05/09/18 22:54 Dose: Not Given Simethicone (Mylicon Chew Tab) 80 mg PO TID PRN PRN Reason: GI distress - Labs Labs: 05/09/18 07:06 05/09/18 07:06 PT 13.9 SECONDS (9.7-12.2) H 05/09/18 07:06 INR 1.3 05/09/18 07:06 APTT 29 SECONDS (21-34) 05/09/18 07:06 Assessment and Plan (1) COPD exacerbation Status: Acute (2) Abdominal pain Status: Acute (3) Colostomy complication Status: Chronic (4) Pulmonary embolism Status: Chronic (5) Tachyarrhythmia Status: Acute
[2018-05-10] MEDS: (Novolin R) Insulin Human Regular 100 units/ml vial SC SCH ×4 (00:46→18:01)
[2018-05-10] MEDS: Piperacill/Tazo 3.375gm in Dex 3.375 GM/50 ML BAG IVPB SCH ×4 (00:49→18:01)
[2018-05-10] MEDS: oxyCODONE 5 mg Immediate Release Tab PO PRN ×3 (01:00→21:37)
[2018-05-10] MEDS: Albuterol-Ipratrop 3 mg / 0.5 (3 ml) UD INH SCH ×4 (01:03→20:04)
[2018-05-10] MEDS ORDERED: Mineral Oil Enema 135 ml RC ONE (08:00)
[2018-05-10] MEDS: Fluticasone-Salmeterol 250-50mcg Diskus IH SCH ×2 (08:07→20:04)
[2018-05-10] MEDS: Budesonide 0.5 mg/2 ml Inhal Susp UD INH SCH ×2 (08:07→20:04)
[2018-05-10] MEDS: Lidocaine 5% Patch TD SCH (09:48)
[2018-05-10] MEDS: guaiFENesin 100 mg/5 ml Syrup UD PO SCH ×3 (09:49→17:46)
[2018-05-10] MEDS: MethylPREDNISolone 40 mg Vial IVP SCH (09:51)
[2018-05-10] MEDS: Multiple Vitamins Tab PO SCH (09:51)
[2018-05-10] MEDS: Bismuth Subsalicylate 262 mg Chew Tab PO SCH ×2 (09:51→17:45)
[2018-05-10] MEDS: Pantoprazole 40 mg EC Tab PO SCH (09:51)
--- NOTE | 2018-05-10 10:52 | CP.PCM.PN ---
Subjective - Date & Time of Evaluation Date of Evaluation: 05/10/18 Time of Evaluation: 06:35 - Subjective Subjective: Patient seen and examined. No complaints. 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 Objective - Vital Signs/Intake and Output Vital Signs (last 24 hours): Temp Pulse Resp BP Pulse Ox 97 F L 97 H 20 125/69 100 05/10/18 07:00 05/10/18 09:48 05/10/18 07:00 05/10/18 09:50 05/10/18 07:00 Intake and Output: 05/10/18 05/10/18 06:59 18:59 Output Total 301 300 Balance -301 -300 - Medications Medications: Current Medications Albuterol (Ventolin Hfa 90 Mcg/Actuation (8 G)) 1 puff INH RQ6 PRN PRN Reason: Shortness of Breath Albuterol/Ipratropium (Duoneb 3 Mg/0.5 Mg (3 Ml) Ud) 3 ml INH RQ6 [facility] Last Admin: 05/10/18 08:07 Dose: 3 ml Alprazolam (Xanax) 0.5 mg PO Q12 [facility] Last Admin: 05/10/18 09:50 Dose: 0.5 mg Apixaban (Eliquis) 2.5 mg PO BID [facility] Last Admin: 05/10/18 09:50 Dose: 2.5 mg Bismuth Subsalicylate (Pepto Bismol) 262 mg PO BID [facility] Last Admin: 05/10/18 09:51 Dose: 262 mg Budesonide (Pulmicort Respules) 0.5 mg INH RQ12 [facility] Last Admin: 05/10/18 08:07 Dose: 0.5 mg Diltiazem HCl (Cardizem) 30 mg PO QID [facility] Last Admin: 05/10/18 09:50 Dose: 30 mg Guaifenesin (Robitussin) 200 mg PO QID [facility] Last Admin: 05/10/18 09:49 Dose: 200 mg Piperacillin Sod/Tazobactam Sod (Zosyn 3.375 Gm Iv Premix) 3.375 gm in 50 mls @ 100 mls/hr IVPB Q6H [facility]; Protocol Last Admin: 05/10/18 06:18 Dose: 100 mls/hr Insulin Human Regular (Novolin R) 0 unit SC Q6 [facility]; Protocol Last Admin: 05/10/18 06:45 Dose: Not Given Lidocaine (Lidoderm) 1 ea TD DAILY [facility] Last Admin: 05/10/18 09:48 Dose: 1 ea Methylprednisolone (Solu-Medrol) 20 mg IVP DAILY [facility] Last Admin: 05/10/18 09:51 Dose: 20 mg Metoprolol Tartrate (Lopressor) 25 mg PO BID [facility] Last Admin: 05/10/18 09:50 Dose: 25 mg Multivitamins (Hexavitamin) 1 tab PO DAILY [facility] Last Admin: 05/10/18 09:51 Dose: 1 tab Ondansetron HCl (Zofran Inj) 4 mg IVP Q4 PRN PRN Reason: Nausea/Vomiting Oxycodone HCl (Oxycodone Immediate Release Tab) 5 mg PO Q6 PRN PRN Reason: Pain, moderate (4-7) Last Admin: 05/10/18 09:49 Dose: 5 mg Pantoprazole Sodium (Protonix Ec Tab) 40 mg PO DAILY [facility] Last Admin: 05/10/18 09:51 Dose: 40 mg Pregabalin (Lyrica) 75 mg PO BID [facility] Last Admin: 05/10/18 09:50 Dose: 75 mg Roflumilast (Daliresp) 500 mcg PO DAILY [facility] Last Admin: 05/10/18 09:49 Dose: 500 mcg Fluticasone/Salmeterol (Advair Diskus 250/50) 1 puff IH RQ12 [facility] Last Admin: 05/10/18 08:07 Dose: 1 puff Simethicone (Mylicon Chew Tab) 80 mg PO TID PRN PRN Reason: GI distress - Labs Labs: 05/09/18 07:06 05/09/18 07:06 PT 13.9 SECONDS (9.7-12.2) H 05/09/18 07:06 INR 1.3 05/09/18 07:06 APTT 29 SECONDS (21-34) 05/09/18 07:06 - Constitutional Appears: No Acute Distress - Head Exam Head Exam: NORMOCEPHALIC - Eye Exam Eye Exam: EOMI, Normal appearance - ENT Exam ENT Exam: Mucous Membranes Moist - Respiratory Exam Respiratory Exam: NORMAL BREATHING PATTERN - Cardiovascular Exam Cardiovascular Exam: +S1, +S2 - GI/Abdominal Exam GI & Abdominal Exam: Soft Additional comments: colocutaneous fistula with feculent output - Neurological Exam Neurological Exam: Alert, Awake, Oriented x3 - Skin Additional comments: sking break down along incisional site Assessment and Plan - Assessment and Plan (Free Text) Assessment: 68M s/p ileostomy reversal 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 Emilia Roach PGY3
[2018-05-10] MEDS: guaiFENesin 200 mg/10 ml Syrup UD PO SCH (21:23)
--- NOTE | 2018-05-10 21:45 | CP.PCM.PN ---
Objective - Vital Signs/Intake and Output Vital Signs (last 24 hours): Temp Pulse Resp BP Pulse Ox 98.9 F 75 20 116/70 94 L 05/10/18 16:00 05/10/18 20:35 05/10/18 16:00 05/10/18 17:46 05/10/18 16:00 Intake and Output: 05/10/18 05/11/18 18:59 06:59 Output Total 300 900 Balance -300 -900 - Medications Medications: Current Medications Albuterol (Ventolin Hfa 90 Mcg/Actuation (8 G)) 1 puff INH RQ6 PRN PRN Reason: Shortness of Breath Albuterol/Ipratropium (Duoneb 3 Mg/0.5 Mg (3 Ml) Ud) 3 ml INH RQ6 [facility] Last Admin: 05/10/18 20:04 Dose: 3 ml Alprazolam (Xanax) 0.5 mg PO Q12 [facility] Last Admin: 05/10/18 21:23 Dose: 0.5 mg Apixaban (Eliquis) 2.5 mg PO BID [facility] Last Admin: 05/10/18 17:45 Dose: 2.5 mg Bismuth Subsalicylate (Pepto Bismol) 262 mg PO BID [facility] Last Admin: 05/10/18 17:45 Dose: 262 mg Budesonide (Pulmicort Respules) 0.5 mg INH RQ12 [facility] Last Admin: 05/10/18 20:04 Dose: 0.5 mg Diltiazem HCl (Cardizem) 30 mg PO QID [facility] Last Admin: 05/10/18 21:23 Dose: 30 mg Guaifenesin (Robitussin) 200 mg PO QID [facility] Last Admin: 05/10/18 21:23 Dose: 200 mg Piperacillin Sod/Tazobactam Sod (Zosyn 3.375 Gm Iv Premix) 3.375 gm in 50 mls @ 100 mls/hr IVPB Q6H [facility]; Protocol Last Admin: 05/10/18 18:01 Dose: 100 mls/hr Insulin Human Regular (Novolin R) 0 unit SC Q6 [facility]; Protocol Last Admin: 05/10/18 18:01 Dose: 3 unit Lidocaine (Lidoderm) 1 ea TD DAILY [facility] Last Admin: 05/10/18 09:48 Dose: 1 ea Methylprednisolone (Solu-Medrol) 20 mg IVP DAILY [facility] Last Admin: 05/10/18 09:51 Dose: 20 mg Metoprolol Tartrate (Lopressor) 25 mg PO BID [facility] Last Admin: 05/10/18 17:46 Dose: 25 mg Multivitamins (Hexavitamin) 1 tab PO DAILY [facility] Last Admin: 05/10/18 09:51 Dose: 1 tab Ondansetron HCl (Zofran Inj) 4 mg IVP Q4 PRN PRN Reason: Nausea/Vomiting Oxycodone HCl (Oxycodone Immediate Release Tab) 5 mg PO Q6 PRN PRN Reason: Pain, moderate (4-7) Last Admin: 05/10/18 21:37 Dose: 5 mg Pantoprazole Sodium (Protonix Ec Tab) 40 mg PO DAILY [facility] Last Admin: 05/10/18 09:51 Dose: 40 mg Pregabalin (Lyrica) 75 mg PO BID [facility] Last Admin: 05/10/18 17:45 Dose: 75 mg Roflumilast (Daliresp) 500 mcg PO DAILY [facility] Last Admin: 05/10/18 09:49 Dose: 500 mcg Fluticasone/Salmeterol (Advair Diskus 250/50) 1 puff IH RQ12 [facility] Last Admin: 05/10/18 20:04 Dose: 1 puff Simethicone (Mylicon Chew Tab) 80 mg PO TID PRN PRN Reason: GI distress - Labs Labs: 05/09/18 07:06 05/09/18 07:06 PT 13.9 SECONDS (9.7-12.2) H 05/09/18 07:06 INR 1.3 05/09/18 07:06 APTT 29 SECONDS (21-34) 05/09/18 07:06 Assessment and Plan (1) COPD exacerbation Status: Acute (2) Abdominal pain Status: Acute (3) Colostomy complication Status: Chronic (4) Pulmonary embolism Status: Chronic (5) Tachyarrhythmia Status: Acute
--- NOTE | 2018-05-10 22:11 | PN ---
DATE: 05/10/2018 FOLLOWUP SUBJECTIVE: The patient complains of abdominal discomfort. No chest pain. He is comfortable on nasal O2. PHYSICAL EXAMINATION: VITAL SIGNS: Blood pressure 104/64, heart rate 101, temperature 98.9, and respirations 20. HEENT: Normocephalic. CHEST: Minimal rhonchi. HEART: S1 and S2 are regular. EXTREMITIES: No edema. LABORATORY DATA: Today's blood sugars are 112, 82, 124, and the last one around 4 p.m. is 289. ASSESSMENT: 1. Colocutaneous fistula. 2. Chronic obstructive lung disease. 3. Sinus tachycardia. 4. Status post reversal ileostomy. 5. Colitis. 6. Uncontrolled diabetes mellitus. 7. Systemic hypertension. 8. Recent deep venous thrombosis and pulmonary embolism. RECOMMENDATIONS: Continue Cardizem 30 mg four times daily, Eliquis 2.5 mg twice a day, Lopressor 25 mg twice a day, Robitussin 200 mg p.o. four times a day, Solu-Medrol 20 mg intravenously once a day, Zosyn 3.375 g intravenously every 6 hours. Mukesh Correia MD
[2018-05-11] MEDS: Piperacill/Tazo 3.375gm in Dex 3.375 GM/50 ML BAG IVPB SCH ×4 (00:20→19:27)
[2018-05-11] MEDS: (Novolin R) Insulin Human Regular 100 units/ml vial SC SCH ×4 (00:35→17:44)
[2018-05-11] MEDS: Albuterol-Ipratrop 3 mg / 0.5 (3 ml) UD INH SCH ×2 (01:26→07:56)
--- NOTE | 2018-05-11 02:21 | PN ---
DATE: 05/10/2018 SUBJECTIVE: His colostomy is open again, and there is a colostomy bag in place. The patient is afebrile. He is less short of breath. He is ambulating, and he is feeling good. No nausea or vomiting. No cough. PHYSICAL EXAMINATION: VITAL SIGNS: BP is 117/74, pulse 80, respiratory rate 20, temperature 97.5. LUNGS: Decreased air entry. Positive rhonchi. CVS: S1, S2 regular. ABDOMEN: Soft. ASSESSMENT: 1. Persistent colostomy. 2. Exacerbation of chronic obstructive pulmonary disease. 3. Steroid-induced diabetes. 4. Anxiety. PLAN: Continue current medication and monitor the patient. Hal Garcia MD
--- NOTE | 2018-05-11 06:44 | PN ---
DATE: 05/10/2018 SUBJECTIVE: His colostomy is open now. He has a bag on his place, and he is for re-evaluation. In the meantime, his bleeding status is stable. He is not in distress. He feels better, but is worried about his colostomy. He is for surgical evaluation. PHYSICAL EXAMINATION: VITAL SIGNS: Blood pressure 116/70, pulse 75, respiratory rate 20, and temperature 98.9. LUNGS: Decreased air entry. Positive rhonchi. CARDIOVASCULAR SYSTEM: S1 and S2, regular, tachycardic. ABDOMEN: Soft. ASSESSMENT: 1. Exacerbation of chronic obstructive pulmonary disease, 2. Colostomy with complications. 3. Colon cancer. 4. Steroid-induced diabetes. PLAN: Medical management. Monitor the patient. Hal Garcia MD
[2018-05-11] MEDS: Budesonide 0.5 mg/2 ml Inhal Susp UD INH SCH ×2 (07:56→19:42)
[2018-05-11] MEDS: Pantoprazole 40 mg EC Tab PO SCH (09:32)
[2018-05-11] MEDS: Multiple Vitamins Tab PO SCH (09:32)
[2018-05-11] MEDS: MethylPREDNISolone 40 mg Vial IVP SCH (09:32)
[2018-05-11] MEDS: Lidocaine 5% Patch TD SCH ×2 (09:33→09:40)
[2018-05-11] MEDS: Bismuth Subsalicylate 262 mg Chew Tab PO SCH ×2 (09:33→18:50)
[2018-05-11] MEDS: guaiFENesin 200 mg/10 ml Syrup UD PO SCH ×4 (09:33→21:59)
[2018-05-11] MEDS: oxyCODONE 5 mg Immediate Release Tab PO PRN (11:33)
[2018-05-11 12:07] LABS: BASO % 0.2 % (0.0-2.0); EOS % 0.3 % (0.0-4.0); HEMOGLOBIN 10.7 g/dL (12.0-18.0); LYMPH # 0.5 K/uL (1.0-4.3); LYMPH % 4.8 % (20.0-40.0); MEAN CELL VOLUME 71.8 fL (80.0-94.0); MEAN CORPUSCULAR HEMOGLOBIN 23.6 pg (27.0-31.0); MEAN CORPUSCULAR HGB CONC 32.9 g/dL (33.0-37.0); MEAN PLATELET VOLUME 8.6 fL (7.2-11.7); MONO # 0.4 K/uL (0.0-0.8); NEUT # 9.9 K/uL (1.8-7.0); NEUT % 90.7 % (50.0-75.0); PLATELET COUNT 198 K/uL (130-400); RBC 4.54 Mil/uL (4.40-5.90); RED CELL DISTRIBUTION WIDTH 24.9 % (11.5-14.5); WHITE BLOOD COUNT 10.9 K/uL (4.8-10.8)
[2018-05-11 12:17] LABS: ALB/GLOB RATIO 1.3 (1.0-2.1); ALBUMIN 3.2 g/dL (3.5-5.0); ALT/SGPT 37 U/L (21-72); AST/SGOT 22 U/L (17-59); BLOOD UREA NITROGEN 3 mg/dL (9-20); CALCIUM 9.1 mg/dl (8.6-10.4); GFR NON-AFRICAN AMERICAN > 60
[2018-05-11] MEDS: Fluticasone-Salmeterol 250-50mcg Diskus IH SCH ×2 (13:02→19:42)
[2018-05-11] MEDS ORDERED: Potassium Chloride 20 mEq/15 ml LIQ UD PO ONE ×2 (13:05→14:00)
--- NOTE | 2018-05-11 13:11 | CP.PCM.PN ---
Subjective - Date & Time of Evaluation Date of Evaluation: 05/11/18 Time of Evaluation: 09:05 - Subjective Subjective: General surgery progress note for Dr. Barak Hanna, PGY-2 Pt S & E at bedside at 0650 Pt reports ab pain improving. Continues on Bipap. Per nursing- pt had 3 BM's over last 24hrs after enemas. Objective - Vital Signs/Intake and Output Vital Signs (last 24 hours): Temp Pulse Resp BP Pulse Ox 97.6 F 114 H 18 112/74 99 05/11/18 07:40 05/11/18 09:34 05/11/18 07:40 05/11/18 09:34 05/11/18 07:40 Intake and Output: 05/11/18 05/11/18 06:59 18:59 Intake Total 670 Output Total 1700 Balance -1030 - Medications Medications: Current Medications Albuterol (Ventolin Hfa 90 Mcg/Actuation (8 G)) 1 puff INH RQ6 PRN PRN Reason: Shortness of Breath Alprazolam (Xanax) 0.5 mg PO Q12 [facility] Last Admin: 05/11/18 09:32 Dose: 0.5 mg Apixaban (Eliquis) 2.5 mg PO BID [facility] Last Admin: 05/11/18 09:32 Dose: 2.5 mg Bismuth Subsalicylate (Pepto Bismol) 262 mg PO BID [facility] Last Admin: 05/11/18 09:33 Dose: 262 mg Budesonide (Pulmicort Respules) 0.5 mg INH RQ12 [facility] Last Admin: 05/11/18 07:56 Dose: 0.5 mg Diltiazem HCl (Cardizem) 30 mg PO QID [facility] Last Admin: 05/11/18 09:32 Dose: 30 mg Guaifenesin (Robitussin) 200 mg PO QID [facility] Last Admin: 05/11/18 09:33 Dose: 200 mg Piperacillin Sod/Tazobactam Sod (Zosyn 3.375 Gm Iv Premix) 3.375 gm in 50 mls @ 100 mls/hr IVPB Q6H [facility]; Protocol Last Admin: 05/11/18 06:00 Dose: 100 mls/hr Insulin Human Regular (Novolin R) 0 unit SC Q6 [facility]; Protocol Last Admin: 05/11/18 06:06 Dose: Not Given Lidocaine (Lidoderm) 1 ea TD DAILY [facility] Last Admin: 05/11/18 09:40 Dose: Not Given Methylprednisolone (Solu-Medrol) 20 mg IVP DAILY [facility] Last Admin: 05/11/18 09:32 Dose: 20 mg Metoprolol Tartrate (Lopressor) 25 mg PO BID [facility] Last Admin: 05/11/18 09:32 Dose: 25 mg Ondansetron HCl (Zofran Inj) 4 mg IVP Q4 PRN PRN Reason: Nausea/Vomiting Oxycodone HCl (Oxycodone Immediate Release Tab) 5 mg PO Q6 PRN PRN Reason: Pain, moderate (4-7) Last Admin: 05/11/18 11:33 Dose: 5 mg Pantoprazole Sodium (Protonix Ec Tab) 40 mg PO DAILY [facility] Last Admin: 05/11/18 09:32 Dose: 40 mg Potassium Chloride (Potassium Chloride Oral Soln) 40 meq PO ONCE ONE Stop: 05/11/18 14:01 Pregabalin (Lyrica) 75 mg PO BID [facility] Last Admin: 05/11/18 09:32 Dose: 75 mg Fluticasone/Salmeterol (Advair Diskus 250/50) 1 puff IH RQ12 [facility] Last Admin: 05/11/18 13:02 Dose: 1 puff Simethicone (Mylicon Chew Tab) 80 mg PO TID PRN PRN Reason: GI distress - Labs Labs: 05/11/18 11:50 05/11/18 11:50 PT 13.9 SECONDS (9.7-12.2) H 05/09/18 07:06 INR 1.3 05/09/18 07:06 APTT 29 SECONDS (21-34) 05/09/18 07:06 - Constitutional Appears: Non-toxic, No Acute Distress - Head Exam Head Exam: ATRAUMATIC, NORMAL INSPECTION, NORMOCEPHALIC - Eye Exam Eye Exam: EOMI, Normal appearance - ENT Exam ENT Exam: Mucous Membranes Moist, Normal Exam - Neck Exam Neck Exam: Full ROM, Normal Inspection - Respiratory Exam Respiratory Exam: NORMAL BREATHING PATTERN (on bipap) - Cardiovascular Exam Cardiovascular Exam: REGULAR RHYTHM, +S1, +S2 - GI/Abdominal Exam GI & Abdominal Exam: Soft. absent: Distended, Firm, Guarding, Tenderness Additional comments: dressing clean/dry/intact - Extremities Exam Extremities Exam: Normal Inspection - Neurological Exam Neurological Exam: Alert, Awake, CN II-XII Intact, Oriented x3 - Psychiatric Exam Psychiatric exam: Normal Affect, Normal Mood - Skin Skin Exam: Normal Color, Warm Assessment and Plan - Assessment and Plan (Free Text) Assessment: 68M POD#9 s/p ileostomy reversal, ileocecal anastomosis: having BM, fectulant drainage from abdominal wound, multiple BMs over last 24hrs Plan: Wound care as per wound care nursing Change dressing PRN until assessed by wound care nursing Hypokalemia this AM- replaced Cont IV Abx PT/OT OOBTC Further mgmt as per primary team DW Dr. Emilia Hanna, PGY-2
[2018-05-11 13:36] LABS: ANISOCYTOSIS MODERATE; BANDS 1 % (0-2); LYMPHOCYTE 8 % (20-40); MONOCYTE 7 % (0-10); NEUTROPHIL 84 % (50-75); PLATELET ESTIMATE NORMAL (NORMAL); POIKILOCYTOSIS SLIGHT; TOTAL CELLS COUNTED 100
[2018-05-11 13:37] LABS: BURR CELLS SLIGHT; HYPOCHROMIC SLIGHT; MICROCYTOSIS MODERATE; OVALOCYTES MODERATE; SCHISTOCYTES SLIGHT; TEARDROP CELLS SLIGHT
[2018-05-11 17:08] LABS: BLOOD UREA NITROGEN 4 mg/dL (9-20); CALCIUM 9.3 mg/dl (8.6-10.4); GFR NON-AFRICAN AMERICAN > 60
--- NOTE | 2018-05-11 21:28 | CP.PCM.PN ---
Objective - Vital Signs/Intake and Output Vital Signs (last 24 hours): Temp Pulse Resp BP Pulse Ox 97.3 F L 98 H 20 110/79 96 05/11/18 15:43 05/11/18 15:43 05/11/18 15:43 05/11/18 17:43 05/11/18 15:43 - Medications Medications: Current Medications Albuterol (Ventolin Hfa 90 Mcg/Actuation (8 G)) 1 puff INH RQ6 PRN PRN Reason: Shortness of Breath Alprazolam (Xanax) 0.5 mg PO Q12 [facility] Last Admin: 05/11/18 09:32 Dose: 0.5 mg Apixaban (Eliquis) 2.5 mg PO BID [facility] Last Admin: 05/11/18 18:50 Dose: 2.5 mg Bismuth Subsalicylate (Pepto Bismol) 262 mg PO BID [facility] Last Admin: 05/11/18 18:50 Dose: 262 mg Budesonide (Pulmicort Respules) 0.5 mg INH RQ12 [facility] Last Admin: 05/11/18 19:42 Dose: 0.5 mg Diltiazem HCl (Cardizem) 30 mg PO QID [facility] Last Admin: 05/11/18 17:37 Dose: 30 mg Guaifenesin (Robitussin) 200 mg PO QID [facility] Last Admin: 05/11/18 17:43 Dose: 200 mg Piperacillin Sod/Tazobactam Sod (Zosyn 3.375 Gm Iv Premix) 3.375 gm in 50 mls @ 100 mls/hr IVPB Q6H [facility]; Protocol Last Admin: 05/11/18 19:27 Dose: 100 mls/hr Insulin Human Regular (Novolin R) 0 unit SC Q6 [facility]; Protocol Last Admin: 05/11/18 17:44 Dose: 2 unit Lidocaine (Lidoderm) 1 ea TD DAILY [facility] Last Admin: 05/11/18 09:40 Dose: Not Given Methylprednisolone (Solu-Medrol) 20 mg IVP DAILY [facility] Last Admin: 05/11/18 09:32 Dose: 20 mg Metoprolol Tartrate (Lopressor) 25 mg PO BID [facility] Last Admin: 05/11/18 17:43 Dose: 25 mg Ondansetron HCl (Zofran Inj) 4 mg IVP Q4 PRN PRN Reason: Nausea/Vomiting Oxycodone HCl (Oxycodone Immediate Release Tab) 5 mg PO Q6 PRN PRN Reason: Pain, moderate (4-7) Last Admin: 05/11/18 11:33 Dose: 5 mg Pantoprazole Sodium (Protonix Ec Tab) 40 mg PO DAILY [facility] Last Admin: 05/11/18 09:32 Dose: 40 mg Pregabalin (Lyrica) 75 mg PO BID [facility] Last Admin: 05/11/18 17:43 Dose: 75 mg Fluticasone/Salmeterol (Advair Diskus 250/50) 1 puff IH RQ12 [facility] Last Admin: 05/11/18 19:42 Dose: 1 puff Simethicone (Mylicon Chew Tab) 80 mg PO TID PRN PRN Reason: GI distress - Labs Labs: 05/11/18 11:50 05/11/18 16:51 PT 13.9 SECONDS (9.7-12.2) H 05/09/18 07:06 INR 1.3 05/09/18 07:06 APTT 29 SECONDS (21-34) 05/09/18 07:06 Assessment and Plan (1) COPD exacerbation Status: Acute (2) Abdominal pain Status: Acute (3) Colostomy complication Status: Chronic (4) Pulmonary embolism Status: Chronic (5) Tachyarrhythmia Status: Acute
--- NOTE | 2018-05-11 22:45 | PN ---
DATE: 05/11/2018 SUBJECTIVE: The patient is comfortable on nasal O2. He denies any chest pain. He is tolerating liquid diet. PHYSICAL EXAMINATION: VITAL SIGNS: Blood pressure 101/67, heart rate earlier was 114, temperature 97.3, and respirations 20. HEENT: Normocephalic. CHEST: Minimal rhonchi. HEART: S1 and S2 regular. EXTREMITIES: No edema. LABORATORY DATA: Today's hemoglobin and hematocrit 10.7 and 32.6; white count 10.9; platelet count 198,000. Today's SMA-7: Sodium 140, potassium 5.0, chloride 101, CO2 of 31, glucose is 153, BUN 4, creatinine 0.5. ASSESSMENT: 1. Chronic obstructive lung disease. 2. Systemic hypertension. 3. Uncontrolled diabetes mellitus. 4. Improved hypokalemia. 5. Recent deep venous thrombosis and pulmonary embolism. 6. Status post reversal ileostomy, currently with significant colitis with feculent drainage from the abdominal wound. RECOMMENDATIONS: Continue current Cardizem at mg four times a day, Eliquis 2.5 mg twice a day, Lopressor 25 mg twice a day, Lyrica at 75 mg twice a day, Protonix 40 mg p.o. once a day, Solu-Medrol 20 mg intravenously once a day, Zofran 4 mg intravenously every 4 hours p.r.n., and Zosyn 3.675 g intravenously every 6 hours. Mukesh Correia MD
[2018-05-12] MEDS: (Novolin R) Insulin Human Regular 100 units/ml vial SC SCH ×5 (00:12→21:53)
[2018-05-12] MEDS: Piperacill/Tazo 3.375gm in Dex 3.375 GM/50 ML BAG IVPB SCH ×4 (00:13→19:57)
[2018-05-12] MEDS: oxyCODONE 5 mg Immediate Release Tab PO PRN ×2 (00:18→13:55)
--- NOTE | 2018-05-12 08:16 | CP.PCM.PN ---
Subjective - Date & Time of Evaluation Date of Evaluation: 05/12/18 Time of Evaluation: 08:14 - Subjective Subjective: General surgery progress note for Dr. Barak Hanna, PGY-2 Pt S & E at bedside at 0650 Pt reports hunger, ab distention much improved. Reports BM, flatus. Denies N & V, F & C. Objective - Vital Signs/Intake and Output Vital Signs (last 24 hours): Temp Pulse Resp BP Pulse Ox 97.8 F 94 H 20 108/74 100 05/12/18 07:51 05/12/18 07:51 05/12/18 07:51 05/12/18 07:51 05/12/18 07:51 Intake and Output: 05/12/18 05/12/18 06:59 18:59 Intake Total 220 Output Total 1050 Balance -830 - Medications Medications: Current Medications Albuterol (Ventolin Hfa 90 Mcg/Actuation (8 G)) 1 puff INH RQ6 PRN PRN Reason: Shortness of Breath Alprazolam (Xanax) 0.5 mg PO Q12 [facility] Last Admin: 05/11/18 21:59 Dose: 0.5 mg Apixaban (Eliquis) 2.5 mg PO BID [facility] Last Admin: 05/11/18 18:50 Dose: 2.5 mg Bismuth Subsalicylate (Pepto Bismol) 262 mg PO BID [facility] Last Admin: 05/11/18 18:50 Dose: 262 mg Budesonide (Pulmicort Respules) 0.5 mg INH RQ12 [facility] Last Admin: 05/11/18 19:42 Dose: 0.5 mg Diltiazem HCl (Cardizem) 30 mg PO QID [facility] Last Admin: 05/11/18 21:59 Dose: Not Given Docusate Sodium (Colace) 100 mg PO DAILY [facility] Guaifenesin (Robitussin) 200 mg PO QID [facility] Last Admin: 05/11/18 21:59 Dose: 200 mg Piperacillin Sod/Tazobactam Sod (Zosyn 3.375 Gm Iv Premix) 3.375 gm in 50 mls @ 100 mls/hr IVPB Q6H [facility]; Protocol Last Admin: 05/12/18 06:01 Dose: 100 mls/hr Insulin Human Regular (Novolin R) 0 unit SC ACHS [facility]; Protocol Last Admin: 05/12/18 08:10 Dose: Not Given Lidocaine (Lidoderm) 1 ea TD DAILY [facility] Last Admin: 05/11/18 09:40 Dose: Not Given Methylprednisolone (Solu-Medrol) 20 mg IVP DAILY [facility] Last Admin: 05/11/18 09:32 Dose: 20 mg Metoprolol Tartrate (Lopressor) 25 mg PO BID [facility] Last Admin: 05/11/18 17:43 Dose: 25 mg Ondansetron HCl (Zofran Inj) 4 mg IVP Q4 PRN PRN Reason: Nausea/Vomiting Oxycodone HCl (Oxycodone Immediate Release Tab) 5 mg PO Q6 PRN PRN Reason: Pain, moderate (4-7) Last Admin: 05/12/18 00:18 Dose: 5 mg Pantoprazole Sodium (Protonix Ec Tab) 40 mg PO DAILY [facility] Last Admin: 05/11/18 09:32 Dose: 40 mg Pregabalin (Lyrica) 75 mg PO BID [facility] Last Admin: 05/11/18 17:43 Dose: 75 mg Fluticasone/Salmeterol (Advair Diskus 250/50) 1 puff IH RQ12 [facility] Last Admin: 05/11/18 19:42 Dose: 1 puff Simethicone (Mylicon Chew Tab) 80 mg PO TID PRN PRN Reason: GI distress - Labs Labs: 05/11/18 11:50 05/11/18 16:51 PT 13.9 SECONDS (9.7-12.2) H 05/09/18 07:06 INR 1.3 05/09/18 07:06 APTT 29 SECONDS (21-34) 05/09/18 07:06 - Constitutional Appears: Non-toxic, No Acute Distress - Head Exam Head Exam: ATRAUMATIC, NORMAL INSPECTION, NORMOCEPHALIC - Eye Exam Eye Exam: EOMI, Normal appearance - ENT Exam ENT Exam: Mucous Membranes Moist, Normal Exam - Neck Exam Neck Exam: Full ROM, Normal Inspection - Respiratory Exam Respiratory Exam: NORMAL BREATHING PATTERN (on bipap) - Cardiovascular Exam Cardiovascular Exam: REGULAR RHYTHM, +S1, +S2 - GI/Abdominal Exam GI & Abdominal Exam: Soft. absent: Distended, Firm, Guarding, Tenderness Additional comments: dressing in place over RLQ- clean/dry/intact - Neurological Exam Neurological Exam: Alert, Awake, CN II-XII Intact, Oriented x3 - Psychiatric Exam Psychiatric exam: Normal Affect, Normal Mood - Skin Skin Exam: Dry, Normal Color, Warm Assessment and Plan - Assessment and Plan (Free Text) Assessment: 68M POD#12 s/p ileostomy reversal, ileocecal anastomosis: having BM, fectulant drainage from abdominal wound, having bowel function Plan: Wound care as per wound care nursing Ok to change wound dressing PRN Monitor electrolytes Cont IV Abx PT/OT Cont CLD OOBTC Colace Further mgmt as per primary team Will DW Dr. Emilia Hanna, PGY-2
[2018-05-12] MEDS: Fluticasone-Salmeterol 250-50mcg Diskus IH SCH ×2 (08:21→19:54)
[2018-05-12] MEDS: Budesonide 0.5 mg/2 ml Inhal Susp UD INH SCH ×2 (08:21→19:54)
[2018-05-12] MEDS: Lidocaine 5% Patch TD SCH ×2 (09:51→09:56)
[2018-05-12] MEDS: MethylPREDNISolone 40 mg Vial IVP SCH (09:52)
[2018-05-12] MEDS: Bismuth Subsalicylate 262 mg Chew Tab PO SCH ×2 (09:52→17:09)
[2018-05-12] MEDS: Pantoprazole 40 mg EC Tab PO SCH (09:52)
[2018-05-12] MEDS: guaiFENesin 200 mg/10 ml Syrup UD PO SCH ×4 (09:53→21:31)
[2018-05-12 12:17] LABS: BLOOD UREA NITROGEN 3 mg/dL (9-20); CALCIUM 9.2 mg/dl (8.6-10.4); GFR NON-AFRICAN AMERICAN > 60
--- NOTE | 2018-05-12 12:46 | PN ---
DATE: 05/11/2018 SUBJECTIVE: He is status post another CAT scan. He has been seen by Surgery. The patient needs to be on liquid diet. I explained to the patient the surgical value and he is aware, and the patient will be on clear liquid diet. He had a repeat CT of the abdomen and pelvis done on , which showed extensive inflammatory changes affecting colon at the osteotomy site and extending to remainder of the right hemicolon. This hemicolon is uninfected. PHYSICAL EXAMINATION: VITAL SIGNS: Blood pressure is 97/64, pulse 94, respiratory rate 20, and temperature 97.3. LUNGS: Bilateral decreased air entry seen in the bases. CARDIOVASCULAR SYSTEM: S1 and S2, regular, tachycardiac. ABDOMEN: Postop, he has a dressing on the right side of the belly. ASSESSMENT: 1. Colostomy complications. 2. Exacerbation of chronic obstructive pulmonary disease. 3. Steroid-induced diabetes. 4. Allergic rhinitis. PLAN: Continue current medications. Monitor the patient. Hal Garcia MD
[2018-05-12] MEDS ORDERED: Potassium Chloride 20 mEq/15 ml LIQ UD PO STA (16:29)
--- NOTE | 2018-05-12 20:52 | CP.PCM.PN ---
Objective - Vital Signs/Intake and Output Vital Signs (last 24 hours): Temp Pulse Resp BP Pulse Ox 98 F 95 H 20 95/60 L 95 05/12/18 15:00 05/12/18 19:56 05/12/18 15:00 05/12/18 19:40 05/12/18 15:00 - Medications Medications: Current Medications Albuterol (Ventolin Hfa 90 Mcg/Actuation (8 G)) 1 puff INH RQ6 PRN PRN Reason: Shortness of Breath Alprazolam (Xanax) 0.5 mg PO Q12 [facility] Last Admin: 05/12/18 09:52 Dose: 0.5 mg Apixaban (Eliquis) 2.5 mg PO BID [facility] Last Admin: 05/12/18 17:09 Dose: 2.5 mg Bismuth Subsalicylate (Pepto Bismol) 262 mg PO BID [facility] Last Admin: 05/12/18 17:09 Dose: 262 mg Budesonide (Pulmicort Respules) 0.5 mg INH RQ12 [facility] Last Admin: 05/12/18 19:54 Dose: 0.5 mg Diltiazem HCl (Cardizem) 30 mg PO QID [facility] Last Admin: 05/12/18 19:40 Dose: Not Given Docusate Sodium (Colace) 100 mg PO DAILY [facility] Last Admin: 05/12/18 09:52 Dose: 100 mg Guaifenesin (Robitussin) 200 mg PO QID [facility] Last Admin: 05/12/18 17:07 Dose: 200 mg Piperacillin Sod/Tazobactam Sod (Zosyn 3.375 Gm Iv Premix) 3.375 gm in 50 mls @ 100 mls/hr IVPB Q6H [facility]; Protocol Last Admin: 05/12/18 19:57 Dose: 100 mls/hr Insulin Human Regular (Novolin R) 0 unit SC ACHS [facility]; Protocol Last Admin: 05/12/18 17:07 Dose: 5 units Lidocaine (Lidoderm) 1 ea TD DAILY [facility] Last Admin: 05/12/18 09:56 Dose: Not Given Methylprednisolone (Solu-Medrol) 20 mg IVP DAILY [facility] Last Admin: 05/12/18 09:52 Dose: 20 mg Metoprolol Tartrate (Lopressor) 25 mg PO BID [facility] Last Admin: 05/12/18 19:40 Dose: Not Given Ondansetron HCl (Zofran Inj) 4 mg IVP Q4 PRN PRN Reason: Nausea/Vomiting Oxycodone HCl (Oxycodone Immediate Release Tab) 5 mg PO Q6 PRN PRN Reason: Pain, moderate (4-7) Last Admin: 05/12/18 13:55 Dose: 5 mg Pantoprazole Sodium (Protonix Ec Tab) 40 mg PO DAILY [facility] Last Admin: 05/12/18 09:52 Dose: 40 mg Pregabalin (Lyrica) 75 mg PO BID [facility] Last Admin: 05/12/18 17:08 Dose: 75 mg Fluticasone/Salmeterol (Advair Diskus 250/50) 1 puff IH RQ12 [facility] Last Admin: 05/12/18 19:54 Dose: 1 puff Simethicone (Mylicon Chew Tab) 80 mg PO TID PRN PRN Reason: GI distress - Labs Labs: 05/11/18 11:50 05/12/18 11:38 PT 13.9 SECONDS (9.7-12.2) H 05/09/18 07:06 INR 1.3 05/09/18 07:06 APTT 29 SECONDS (21-34) 05/09/18 07:06 Assessment and Plan (1) COPD exacerbation Status: Acute (2) Abdominal pain Status: Acute (3) Colostomy complication Status: Chronic (4) Pulmonary embolism Status: Chronic (5) Tachyarrhythmia Status: Acute
--- NOTE | 2018-05-12 22:07 | PN ---
DATE: 05/12/2018 SUBJECTIVE: The patient tolerated soft diet. He is mildly short of breath. He denies chest pain. PHYSICAL EXAMINATION: VITAL SIGNS: Blood pressure 108/74, heart rate 102, temperature 97.8, and respirations 20. HEENT: Normocephalic. CHEST: Clear. HEART: S1 and S2 regular. EXTREMITIES: No edema. LABORATORY DATA: Today's SMA-7 showed sodium 137, potassium 2.7, chloride 100, CO2 of 31, glucose 157, BUN 3, creatinine 0.5. ASSESSMENT: 1. Sinus tachycardia. 2. Hypokalemia. 3. Status post reversal of ileostomy with a leaking abdominal wound. 4. Recent deep venous thrombosis and pulmonary embolism. 5. Hypertension. 6. Uncontrolled diabetes mellitus. RECOMMENDATIONS: Continue Cardizem 30 mg four times daily, Colace 100 mg daily, Eliquis 2.5 mg twice a day, Lopressor 25 mg twice a day. The patient is receiving a total of 40 mEq of intravenous potassium replacement now. Continue Solu-Medrol 20 mg intravenously daily. Continue IV Zosyn 3.675 grams every six hours. Obtain BMP in a.m. Mukesh Correia MD
[2018-05-13] MEDS: Piperacill/Tazo 3.375gm in Dex 3.375 GM/50 ML BAG IVPB SCH ×4 (00:10→19:50)
[2018-05-13] MEDS: oxyCODONE 5 mg Immediate Release Tab PO PRN ×2 (01:00→21:08)
--- NOTE | 2018-05-13 02:49 | PN ---
DATE: 05/12/2018 SUBJECTIVE: Nathen Gutierrez is seen by Surgery. The patient was given potassium. The patient is complaining of feeling hungry but he is for liquid diet. He denies any nausea, vomiting, fever, or chills. He denies any dysuria, hematuria. He denies any sneezing, itchy eyes, itchy nose. PHYSICAL EXAMINATION: VITAL SIGNS: Blood pressure is 98/62, pulse 102, respiratory rate 20, temperature 98. LUNGS: Decreased air entry. CVS: S1 and S2 regular. ABDOMEN: Soft. Nontender. Bowel sounds are positive. ASSESSMENT: 1. Exacerbation of chronic obstructive pulmonary disease. 2. Hypokalemia, severe, and the patient received four potassium riders. 3. Colostomy. 4. Anxiety. PLAN: Continue current medication and monitor the patient. Hal Garcia MD
[2018-05-13 06:40] LABS: BASO % 0.3 % (0.0-2.0); EOS % 0.5 % (0.0-4.0); HEMOGLOBIN 10.4 g/dL (12.0-18.0); MEAN CELL VOLUME 73.4 fL (80.0-94.0); MEAN CORPUSCULAR HGB CONC 32.7 g/dL (33.0-37.0); MONO # 0.5 K/uL (0.0-0.8); MONO % 5.4 % (0.0-10.0); NEUT # 7.1 K/uL (1.8-7.0); NEUT % 81.8 % (50.0-75.0); RBC 4.33 Mil/uL (4.40-5.90); RED CELL DISTRIBUTION WIDTH 25.2 % (11.5-14.5); WHITE BLOOD COUNT 8.7 K/uL (4.8-10.8)
[2018-05-13 07:41] LABS: BLOOD UREA NITROGEN 6 mg/dL (9-20); CALCIUM 9.1 mg/dl (8.6-10.4); GFR NON-AFRICAN AMERICAN > 60
[2018-05-13] MEDS: (Novolin R) Insulin Human Regular 100 units/ml vial SC SCH ×4 (08:08→21:20)
[2018-05-13] MEDS: Budesonide 0.5 mg/2 ml Inhal Susp UD INH SCH ×2 (08:13→20:27)
[2018-05-13] MEDS: Fluticasone-Vilanterol 100/25mcg Diskus INH SCH (08:14)
[2018-05-13] MEDS: Fluticasone-Salmeterol 250-50mcg Diskus IH SCH (08:19)
[2018-05-13] MEDS: guaiFENesin 200 mg/10 ml Syrup UD PO SCH ×4 (09:09→21:14)
[2018-05-13] MEDS: Bismuth Subsalicylate 262 mg Chew Tab PO SCH ×2 (09:09→17:45)
[2018-05-13] MEDS: Pantoprazole 40 mg EC Tab PO SCH (09:09)
[2018-05-13] MEDS: Lidocaine 5% Patch TD SCH (09:10)
[2018-05-13] MEDS: MethylPREDNISolone 40 mg Vial IVP SCH (09:10)
[2018-05-13] MEDS ORDERED: Potassium Chloride 20 mEq ER Tab PO ONE (10:00)
--- NOTE | 2018-05-13 10:49 | CP.PCM.PN ---
Subjective - Date & Time of Evaluation Date of Evaluation: 05/13/18 Time of Evaluation: 10:46 - Subjective Subjective: Surgery PT seen and examined. No acute events. Reports regular Bm. Dressing changed this AM. 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 Tolerating diet. Objective - Vital Signs/Intake and Output Vital Signs (last 24 hours): Temp Pulse Resp BP Pulse Ox 97.8 F 88 20 118/82 99 05/13/18 07:15 05/13/18 07:15 05/13/18 07:15 05/13/18 09:10 05/13/18 07:15 Intake and Output: 05/13/18 05/13/18 06:59 18:59 Output Total 400 Balance -400 - Medications Medications: Current Medications Albuterol (Ventolin Hfa 90 Mcg/Actuation (8 G)) 1 puff INH RQ6 PRN PRN Reason: Shortness of Breath Alprazolam (Xanax) 0.5 mg PO Q12 [facility] Last Admin: 05/13/18 09:09 Dose: 0.5 mg Apixaban (Eliquis) 2.5 mg PO BID [facility] Last Admin: 05/13/18 09:09 Dose: 2.5 mg Bismuth Subsalicylate (Pepto Bismol) 262 mg PO BID [facility] Last Admin: 05/13/18 09:09 Dose: 262 mg Budesonide (Pulmicort Respules) 0.5 mg INH RQ12 [facility] Last Admin: 05/13/18 08:13 Dose: 0.5 mg Diltiazem HCl (Cardizem) 30 mg PO QID [facility] Last Admin: 05/13/18 09:09 Dose: 30 mg Docusate Sodium (Colace) 100 mg PO DAILY [facility] Last Admin: 05/13/18 09:09 Dose: 100 mg Fluticasone/Vilanterol (Breo Ellipta 100-25 Mcg Inh) 1 puff INH RQD [facility] Last Admin: 05/13/18 08:14 Dose: Not Given Guaifenesin (Robitussin) 200 mg PO QID [facility] Last Admin: 05/13/18 09:09 Dose: 200 mg Piperacillin Sod/Tazobactam Sod (Zosyn 3.375 Gm Iv Premix) 3.375 gm in 50 mls @ 100 mls/hr IVPB Q6H [facility]; Protocol Last Admin: 05/13/18 06:00 Dose: 100 mls/hr Insulin Human Regular (Novolin R) 0 unit SC ACHS [facility]; Protocol Last Admin: 05/13/18 08:08 Dose: Not Given Lidocaine (Lidoderm) 1 ea TD DAILY [facility] Last Admin: 05/13/18 09:10 Dose: 1 ea Methylprednisolone (Solu-Medrol) 20 mg IVP DAILY [facility] Last Admin: 05/13/18 09:10 Dose: 20 mg Metoprolol Tartrate (Lopressor) 25 mg PO BID [facility] Last Admin: 05/13/18 09:10 Dose: 25 mg Ondansetron HCl (Zofran Inj) 4 mg IVP Q4 PRN PRN Reason: Nausea/Vomiting Oxycodone HCl (Oxycodone Immediate Release Tab) 5 mg PO Q6 PRN PRN Reason: Pain, moderate (4-7) Last Admin: 05/13/18 01:00 Dose: 5 mg Pantoprazole Sodium (Protonix Ec Tab) 40 mg PO DAILY [facility] Last Admin: 05/13/18 09:09 Dose: 40 mg Pregabalin (Lyrica) 75 mg PO BID [facility] Last Admin: 05/13/18 09:09 Dose: 75 mg Simethicone (Mylicon Chew Tab) 80 mg PO TID PRN PRN Reason: GI distress - Labs Labs: 05/13/18 06:25 05/13/18 06:25 PT 13.9 SECONDS (9.7-12.2) H 05/09/18 07:06 INR 1.3 05/09/18 07:06 APTT 29 SECONDS (21-34) 05/09/18 07:06 - Constitutional Appears: No Acute Distress - Eye Exam Eye Exam: EOMI, Normal appearance, PERRL Pupil Exam: NORMAL ACCOMODATION, PERRL - ENT Exam ENT Exam: Mucous Membranes Moist, Normal Exam - Neck Exam Neck Exam: Full ROM, Normal Inspection. absent: Lymphadenopathy - Respiratory Exam Additional comments: BIPAP - Cardiovascular Exam Cardiovascular Exam: REGULAR RHYTHM, +S1, +S2. absent: Murmur - GI/Abdominal Exam GI & Abdominal Exam: Distended, Soft, Tenderness. absent: Guarding, Rigid Additional comments: R abd granulating tissues [id number]. Enterocutaneous fistula has feculent output. Dressing in place. - Exam Exam: NORMAL INSPECTION - Extremities Exam Extremities Exam: Full ROM, Normal Capillary Refill, Normal Inspection. absent: Joint Swelling, Pedal Edema - Back Exam Back Exam: NORMAL INSPECTION - Neurological Exam Neurological Exam: Alert, Awake, CN II-XII Intact, Normal Gait, Oriented x3 - Psychiatric Exam Psychiatric exam: Normal Affect, Normal Mood - Skin Skin Exam: Warm. absent: Dry, Intact Assessment and Plan - Assessment and Plan (Free Text) Assessment: 68M POD#13 s/p ileostomy reversal, ileocecal anastomosis: having BM, fectulant drainage from abdominal wound, having bowel function Plan: Wound care as per wound care nursing Ok to change wound dressing PRN Monitor electrolytes Cont IV Abx PT/OT Cont Regulra diet OOBTC Colace Further mgmt as per primary team DW Dr. Nieto
--- NOTE | 2018-05-13 15:01 | CP.PCM.PN ---
Subjective - Date & Time of Evaluation Date of Evaluation: 05/13/18 Time of Evaluation: 08:40 - Subjective Subjective: the patient seen and examined Denies shortness of breath Denies cough Tolerating feeding enterocutaneous fistula Objective - Vital Signs/Intake and Output Vital Signs (last 24 hours): Temp Pulse Resp BP Pulse Ox 97.8 F 88 20 118/82 99 05/13/18 07:15 05/13/18 07:15 05/13/18 07:15 05/13/18 09:10 05/13/18 07:15 Intake and Output: 05/13/18 05/13/18 06:59 18:59 Intake Total 750 Output Total 400 Balance -400 750 - Medications Medications: Current Medications Albuterol (Ventolin Hfa 90 Mcg/Actuation (8 G)) 1 puff INH RQ6 PRN PRN Reason: Shortness of Breath Alprazolam (Xanax) 0.5 mg PO Q12 [facility] Last Admin: 05/13/18 09:09 Dose: 0.5 mg Apixaban (Eliquis) 2.5 mg PO BID [facility] Last Admin: 05/13/18 09:09 Dose: 2.5 mg Bismuth Subsalicylate (Pepto Bismol) 262 mg PO BID [facility] Last Admin: 05/13/18 09:09 Dose: 262 mg Budesonide (Pulmicort Respules) 0.5 mg INH RQ12 [facility] Last Admin: 05/13/18 08:13 Dose: 0.5 mg Diltiazem HCl (Cardizem) 30 mg PO QID [facility] Last Admin: 05/13/18 13:50 Dose: 30 mg Docusate Sodium (Colace) 100 mg PO DAILY [facility] Last Admin: 05/13/18 09:09 Dose: 100 mg Fluticasone/Vilanterol (Breo Ellipta 100-25 Mcg Inh) 1 puff INH RQD [facility] Last Admin: 05/13/18 08:14 Dose: Not Given Guaifenesin (Robitussin) 200 mg PO QID [facility] Last Admin: 05/13/18 13:50 Dose: 200 mg Piperacillin Sod/Tazobactam Sod (Zosyn 3.375 Gm Iv Premix) 3.375 gm in 50 mls @ 100 mls/hr IVPB Q6H [facility]; Protocol Last Admin: 05/13/18 13:50 Dose: 100 mls/hr Insulin Human Regular (Novolin R) 0 unit SC ACHS [facility]; Protocol Last Admin: 05/13/18 12:50 Dose: 1 units Lidocaine (Lidoderm) 1 ea TD DAILY [facility] Last Admin: 05/13/18 09:10 Dose: 1 ea Methylprednisolone (Solu-Medrol) 20 mg IVP DAILY [facility] Last Admin: 05/13/18 09:10 Dose: 20 mg Metoprolol Tartrate (Lopressor) 25 mg PO BID [facility] Last Admin: 05/13/18 09:10 Dose: 25 mg Ondansetron HCl (Zofran Inj) 4 mg IVP Q4 PRN PRN Reason: Nausea/Vomiting Oxycodone HCl (Oxycodone Immediate Release Tab) 5 mg PO Q6 PRN PRN Reason: Pain, moderate (4-7) Last Admin: 05/13/18 01:00 Dose: 5 mg Pantoprazole Sodium (Protonix Ec Tab) 40 mg PO DAILY [facility] Last Admin: 05/13/18 09:09 Dose: 40 mg Pregabalin (Lyrica) 75 mg PO BID [facility] Last Admin: 05/13/18 09:09 Dose: 75 mg Simethicone (Mylicon Chew Tab) 80 mg PO TID PRN PRN Reason: GI distress - Labs Labs: 05/13/18 06:25 05/13/18 06:25 PT 13.9 SECONDS (9.7-12.2) H 05/09/18 07:06 INR 1.3 05/09/18 07:06 APTT 29 SECONDS (21-34) 05/09/18 07:06 Assessment and Plan (1) COPD (chronic obstructive pulmonary disease) with emphysema Status: Acute
--- NOTE | 2018-05-13 22:12 | CP.PCM.PN ---
Objective - Vital Signs/Intake and Output Vital Signs (last 24 hours): Temp Pulse Resp BP Pulse Ox 97.9 F 95 H 20 108/73 97 05/13/18 16:17 05/13/18 16:17 05/13/18 16:17 05/13/18 17:45 05/13/18 16:17 Intake and Output: 05/13/18 05/14/18 18:59 06:59 Intake Total 750 Balance 750 - Medications Medications: Current Medications Albuterol (Ventolin Hfa 90 Mcg/Actuation (8 G)) 1 puff INH RQ6 PRN PRN Reason: Shortness of Breath Alprazolam (Xanax) 0.5 mg PO Q12 [facility] Last Admin: 05/13/18 21:10 Dose: 0.5 mg Apixaban (Eliquis) 2.5 mg PO BID [facility] Last Admin: 05/13/18 17:45 Dose: 2.5 mg Bismuth Subsalicylate (Pepto Bismol) 262 mg PO BID [facility] Last Admin: 05/13/18 17:45 Dose: 262 mg Budesonide (Pulmicort Respules) 0.5 mg INH RQ12 [facility] Last Admin: 05/13/18 20:27 Dose: 0.5 mg Diltiazem HCl (Cardizem) 30 mg PO QID [facility] Last Admin: 05/13/18 21:16 Dose: Not Given Docusate Sodium (Colace) 100 mg PO DAILY [facility] Last Admin: 05/13/18 09:09 Dose: 100 mg Fluticasone/Vilanterol (Breo Ellipta 100-25 Mcg Inh) 1 puff INH RQD [facility] Last Admin: 05/13/18 08:14 Dose: Not Given Guaifenesin (Robitussin) 200 mg PO QID [facility] Last Admin: 05/13/18 21:14 Dose: 200 mg Piperacillin Sod/Tazobactam Sod (Zosyn 3.375 Gm Iv Premix) 3.375 gm in 50 mls @ 100 mls/hr IVPB Q6H [facility]; Protocol Last Admin: 05/13/18 19:50 Dose: 100 mls/hr Insulin Human Regular (Novolin R) 0 unit SC ACHS [facility]; Protocol Last Admin: 05/13/18 21:20 Dose: Not Given Lidocaine (Lidoderm) 1 ea TD DAILY [facility] Last Admin: 05/13/18 09:10 Dose: 1 ea Methylprednisolone (Solu-Medrol) 20 mg IVP DAILY [facility] Last Admin: 05/13/18 09:10 Dose: 20 mg Metoprolol Tartrate (Lopressor) 25 mg PO BID [facility] Last Admin: 05/13/18 17:45 Dose: 25 mg Ondansetron HCl (Zofran Inj) 4 mg IVP Q4 PRN PRN Reason: Nausea/Vomiting Oxycodone HCl (Oxycodone Immediate Release Tab) 5 mg PO Q6 PRN PRN Reason: Pain, moderate (4-7) Last Admin: 05/13/18 21:08 Dose: 5 mg Pantoprazole Sodium (Protonix Ec Tab) 40 mg PO DAILY [facility] Last Admin: 05/13/18 09:09 Dose: 40 mg Pregabalin (Lyrica) 75 mg PO BID [facility] Last Admin: 05/13/18 17:45 Dose: 75 mg Simethicone (Mylicon Chew Tab) 80 mg PO TID PRN PRN Reason: GI distress - Labs Labs: 05/13/18 06:25 05/13/18 06:25 PT 13.9 SECONDS (9.7-12.2) H 05/09/18 07:06 INR 1.3 05/09/18 07:06 APTT 29 SECONDS (21-34) 05/09/18 07:06 Assessment and Plan (1) COPD exacerbation Status: Acute (2) Abdominal pain Status: Acute (3) Colostomy complication Status: Chronic (4) Pulmonary embolism Status: Chronic (5) Tachyarrhythmia Status: Acute
--- NOTE | 2018-05-13 22:58 | PN ---
DATE: 04/26/2018 SUBJECTIVE: The patient is in sinus tachycardia but borderline hypertensive. PHYSICAL EXAMINATION: VITAL SIGNS: Blood pressure is 103/68, heart rate 95, temperature 97.9, respiration 20. HEENT: Normocephalic. CHEST: Clear. HEART: S1 and S2, regular. EXTREMITIES: No edema. LABORATORY DATA: Today's hemoglobin and hematocrit 10.4 and 31.8; white count and platelet count are within normal limit. SMA-7: Sodium 142, potassium 3.4, chloride 105, CO2 of 30, glucose 127, BUN 6, creatinine 0.8. ASSESSMENT: 1. Borderline hypertension. 2. Sinus tachycardia. 3. Enterocutaneous fistula. 4. Uncontrolled diabetes mellitus. 5. Chronic obstructive lung disease. 6. Deep venous thrombosis and pulmonary embolus. RECOMMENDATIONS: I proceeded to hold both Cardizem and Lopressor for systolic blood pressure below 110. Continue Eliquis 2.5 mg twice a day, Protonix 40 mg p.o. once a day, Solu-Medrol 20 mg intravenously once a day, Zosyn 3.375 g intravenously every 6 hours. Mukesh Correia MD
[2018-05-14] MEDS: Piperacill/Tazo 3.375gm in Dex 3.375 GM/50 ML BAG IVPB SCH ×4 (01:04→19:27)
[2018-05-14] MEDS: (Novolin R) Insulin Human Regular 100 units/ml vial SC SCH ×4 (07:22→22:28)
[2018-05-14] MEDS: Budesonide 0.5 mg/2 ml Inhal Susp UD INH SCH ×2 (08:05→19:33)
[2018-05-14] MEDS: Fluticasone-Vilanterol 100/25mcg Diskus INH SCH (08:05)
--- NOTE | 2018-05-14 08:31 | CP.PCM.PN ---
Subjective - Date & Time of Evaluation Date of Evaluation: 05/14/18 Time of Evaluation: 07:00 - Subjective Subjective: General Surgery Pt seen and examined, no new complaints. He is worried about going home and taking care of his wound. Objective - Vital Signs/Intake and Output Vital Signs (last 24 hours): Temp Pulse Resp BP Pulse Ox 97.4 F L 73 18 130/80 100 05/14/18 07:05 05/14/18 07:05 05/14/18 07:05 05/14/18 07:05 05/14/18 07:05 Intake and Output: 05/14/18 05/14/18 06:59 18:59 Intake Total 850 Output Total 600 Balance 250 - Medications Medications: Current Medications Albuterol (Ventolin Hfa 90 Mcg/Actuation (8 G)) 1 puff INH RQ6 PRN PRN Reason: Shortness of Breath Alprazolam (Xanax) 0.5 mg PO Q12 [facility] Last Admin: 05/13/18 21:10 Dose: 0.5 mg Apixaban (Eliquis) 2.5 mg PO BID [facility] Last Admin: 05/13/18 17:45 Dose: 2.5 mg Bismuth Subsalicylate (Pepto Bismol) 262 mg PO BID [facility] Last Admin: 05/13/18 17:45 Dose: 262 mg Budesonide (Pulmicort Respules) 0.5 mg INH RQ12 [facility] Last Admin: 05/14/18 08:05 Dose: 0.5 mg Diltiazem HCl (Cardizem) 30 mg PO QID [facility] Last Admin: 05/13/18 21:16 Dose: Not Given Docusate Sodium (Colace) 100 mg PO DAILY [facility] Last Admin: 05/13/18 09:09 Dose: 100 mg Fluticasone/Vilanterol (Breo Ellipta 100-25 Mcg Inh) 1 puff INH RQD [facility] Last Admin: 05/14/18 08:05 Dose: 1 puff Guaifenesin (Robitussin) 200 mg PO QID [facility] Last Admin: 05/13/18 21:14 Dose: 200 mg Piperacillin Sod/Tazobactam Sod (Zosyn 3.375 Gm Iv Premix) 3.375 gm in 50 mls @ 100 mls/hr IVPB Q6H [facility]; Protocol Last Admin: 05/14/18 06:47 Dose: 100 mls/hr Insulin Human Regular (Novolin R) 0 unit SC ACHS [facility]; Protocol Last Admin: 05/14/18 07:22 Dose: Not Given Lidocaine (Lidoderm) 1 ea TD DAILY [facility] Last Admin: 05/13/18 09:10 Dose: 1 ea Methylprednisolone (Solu-Medrol) 20 mg IVP DAILY [facility] Last Admin: 05/13/18 09:10 Dose: 20 mg Metoprolol Tartrate (Lopressor) 25 mg PO BID [facility] Last Admin: 05/13/18 17:45 Dose: 25 mg Ondansetron HCl (Zofran Inj) 4 mg IVP Q4 PRN PRN Reason: Nausea/Vomiting Oxycodone HCl (Oxycodone Immediate Release Tab) 5 mg PO Q6 PRN PRN Reason: Pain, moderate (4-7) Last Admin: 05/13/18 21:08 Dose: 5 mg Pantoprazole Sodium (Protonix Ec Tab) 40 mg PO DAILY [facility] Last Admin: 05/13/18 09:09 Dose: 40 mg Pregabalin (Lyrica) 75 mg PO BID [facility] Last Admin: 05/13/18 17:45 Dose: 75 mg Simethicone (Mylicon Chew Tab) 80 mg PO TID PRN PRN Reason: GI distress - Labs Labs: 05/13/18 06:25 05/13/18 06:25 PT 13.9 SECONDS (9.7-12.2) H 05/09/18 07:06 INR 1.3 05/09/18 07:06 APTT 29 SECONDS (21-34) 05/09/18 07:06 - Constitutional Appears: Non-toxic, No Acute Distress - Head Exam Head Exam: ATRAUMATIC, NORMOCEPHALIC - Eye Exam Eye Exam: EOMI. absent: Scleral icterus - Respiratory Exam Respiratory Exam: NORMAL BREATHING PATTERN. absent: Respiratory Distress - Cardiovascular Exam Cardiovascular Exam: RRR, +S1, +S2 - GI/Abdominal Exam GI & Abdominal Exam: Soft, Tenderness (mild at wound site). absent: Distended, Guarding, Rigid, Rebound Additional comments: R abd granulating tissues ~[id number]. Enterocutaneous fistula has some output. Dressing in place. - Neurological Exam Neurological Exam: Alert, Awake - Skin Skin Exam: Dry, Warm Assessment and Plan - Assessment and Plan (Free Text) Assessment: 68M POD#14 s/p ileostomy reversal, ileocecal anastomosis: drainage from EC fistula Plan: OK for DC from a surgical standpoint, recommend Home health nurse to help with wound care Wound care as per wound care nursing Ok to change wound dressing PRN Monitor electrolytes PT/OT Further mgmt as per primary team D/W Dr. Eimlia Campos PGY4
[2018-05-14] MEDS: Pantoprazole 40 mg EC Tab PO SCH (09:23)
[2018-05-14] MEDS: Bismuth Subsalicylate 262 mg Chew Tab PO SCH ×2 (09:24→19:25)
[2018-05-14] MEDS: Potassium & Sodium Phosphate PO SCH (09:24)
[2018-05-14] MEDS: MethylPREDNISolone 40 mg Vial IVP SCH (09:24)
[2018-05-14] MEDS: Lidocaine 5% Patch TD SCH (09:25)
[2018-05-14] MEDS: guaiFENesin 200 mg/10 ml Syrup UD PO SCH ×4 (09:26→22:26)
[2018-05-14] MEDS: oxyCODONE 5 mg Immediate Release Tab PO PRN ×2 (12:13→19:23)
--- NOTE | 2018-05-14 13:08 | PCM.FALL ---
Post Fall Progress Note - Post Fall Fall Date: 05/14/18 Fall Time: 11:56 - Post Fall Exam Vital Sign: Temp Pulse Resp BP Pulse Ox 97.4 F L 73 18 128/80 100 05/14/18 07:05 05/14/18 07:05 05/14/18 07:05 05/14/18 09:23 05/14/18 07:05 Skull Exam: Negative for: Scalp wound, Scalp hematoma Eye Exam: Positive for: Pupils equal, Pupils reactive Ear Exam: Negative for: Discharge, Bleeding Nose Exam: Negative for: Discharge, Bleeding Skin Exam: Positive for: Bruising Mouth Exam: Negative for: Tongue bitten Neck Exam: Negative for: Tenderness Spinal Exam: Negative for: Tenderness Chest Exam: Positive for: Difficulty breathing (SOB), Tenderness in ribs (right sided) Abdomen Exam: Positive for: Tenderness (RLQ) Pelvic Exam: Positive for: Tenderness Impression/Plan: Code star called to room 556 at 11:56am. Patient seen lying in bed in pain, clutching his abdomen on the right and head. Roommate reports pt was sitting in chair and got up to go back to his bed and witnessed him fall to the ground, hitting his head on body on the way. Nursing reports they found pt on the floor next to his bed and helped him to bed. Upon arrival, 2 nurses were in room with pt. Vitals taken at time: T 97.4, BP 142/71, HR 85, RR 21, O2 95% on 2L. Physical Exam revealed pt in acute pain. No signs of lacerations or active bleeds. Pt's abdomen had colostomy dressing in RLQ. Dr. Garcia then entered room and after evaluating patient wanted the orders of a head CT, and right rib x-ray [address] Garcia ordered Oxycodone 5mg for pain.
--- NOTE | 2018-05-14 13:34 | CT ---
Date of service: 05/14/2018 PROCEDURE: CT HEAD WITHOUT CONTRAST. HISTORY: s/p fall COMPARISON: Noncontrast head CT 03/17/2018. TECHNIQUE: Axial computed tomography images were obtained through the head/brain without intravenous contrast. Radiation dose: Total exam DLP = 2328.39 mGy-cm. This CT exam was performed using one or more of the following dose reduction techniques: Automated exposure control, adjustment of the mA and/or kV according to patient size, and/or use of iterative reconstruction technique. FINDINGS: HEMORRHAGE: No intracranial hemorrhage. BRAIN: Good corticomedullary differentiation is seen. Proportional, diffuse expansion of the ventriculosulcal and cisternal spaces is appreciated with white matter lucency compatible with limited diffuse cerebral atrophy and chronic microangiopathy. No suspicious extra-axial fluid collection is identified and the midline brain anatomy appears grossly nonfocal as imaged. There is no mass effect throughout. Small left posterior fossa arachnoid cysts reiterated VENTRICLES: Unremarkable. No hydrocephalus. CALVARIUM: No fracture appreciated. PARANASAL SINUSES: Right frontal probable mucocele reiterated. MASTOID AIR CELLS: Unremarkable as visualized. No inflammatory changes. OTHER FINDINGS: None. IMPRESSION: Stable age related neuro degenerative findings remain age-appropriate as discussed above. No fracture throughout the calvarium or skullbase. Incidental note is made of a probable mucocele the right frontal sinus as well as posterior fossa arachnoid cyst.
--- NOTE | 2018-05-14 14:10 | RAD ---
Date of service: 05/14/2018 PROCEDURE: Radiographs of the Chest and Right Ribs. HISTORY: s/p fall on right side COMPARISON: None available. TECHNIQUE: Frontal radiograph of the chest and multiple oblique radiographs of the right ribs were obtained. FINDINGS: RIGHT RIBS: On series 308, image number 4, there is marked limitation of the most posterior inferior right ribs T10 and T9. This is due to technical factors On the other available images of this area no gross rib fracture or rib destruction is noted. LUNGS: Clear. PLEURA: No pneumothorax or pleural fluid. CARDIOVASCULAR: Normal sized heart. No pulmonary vascular congestion. IVC filter projects over expected L1-L2 level Punctate hyperdensities epigastric region not shown to be pancreatic calcifications per the CT abdomen and pelvis of 05/09/2018 relating to GI contents OTHER FINDINGS: Right shoulder arthrosis Generalized osteopenia thoraco lumbar spondylosis IMPRESSION: No gross right rib fracture noted-as discussed above Multifocal arthrosis
[2018-05-14 17:05] VITALS: RESP 20
--- NOTE | 2018-05-14 22:24 | CP.PCM.PN ---
Objective - Vital Signs/Intake and Output Vital Signs (last 24 hours): Temp Pulse Resp BP Pulse Ox 97.8 F 82 20 128/72 95 05/14/18 15:30 05/14/18 15:30 05/14/18 15:30 05/14/18 19:25 05/14/18 15:30 Intake and Output: 05/14/18 05/15/18 18:59 06:59 Intake Total 650 Balance 650 - Medications Medications: Current Medications Albuterol (Ventolin Hfa 90 Mcg/Actuation (8 G)) 1 puff INH RQ6 PRN PRN Reason: Shortness of Breath Alprazolam (Xanax) 0.5 mg PO Q12 [facility] Last Admin: 05/14/18 09:23 Dose: 0.5 mg Apixaban (Eliquis) 2.5 mg PO BID [facility] Last Admin: 05/14/18 19:25 Dose: 2.5 mg Bismuth Subsalicylate (Pepto Bismol) 262 mg PO BID [facility] Last Admin: 05/14/18 19:25 Dose: 262 mg Budesonide (Pulmicort Respules) 0.5 mg INH RQ12 [facility] Last Admin: 05/14/18 19:33 Dose: Not Given Diltiazem HCl (Cardizem) 30 mg PO QID [facility] Last Admin: 05/14/18 19:25 Dose: 30 mg Docusate Sodium (Colace) 100 mg PO DAILY [facility] Last Admin: 05/14/18 09:24 Dose: 100 mg Fluticasone/Vilanterol (Breo Ellipta 100-25 Mcg Inh) 1 puff INH RQD [facility] Last Admin: 05/14/18 08:05 Dose: 1 puff Guaifenesin (Robitussin) 200 mg PO QID [facility] Last Admin: 05/14/18 19:26 Dose: 200 mg Piperacillin Sod/Tazobactam Sod (Zosyn 3.375 Gm Iv Premix) 3.375 gm in 50 mls @ 100 mls/hr IVPB Q6H [facility]; Protocol Last Admin: 05/14/18 19:27 Dose: 100 mls/hr Insulin Human Regular (Novolin R) 0 unit SC ACHS [facility]; Protocol Last Admin: 05/14/18 19:24 Dose: 5 units Lidocaine (Lidoderm) 1 ea TD DAILY [facility] Last Admin: 05/14/18 09:25 Dose: Not Given Methylprednisolone (Solu-Medrol) 10 mg IVP DAILY [facility] Metoprolol Tartrate (Lopressor) 25 mg PO BID [facility] Last Admin: 05/14/18 19:25 Dose: 25 mg Ondansetron HCl (Zofran Inj) 4 mg IVP Q4 PRN PRN Reason: Nausea/Vomiting Oxycodone HCl (Oxycodone Immediate Release Tab) 5 mg PO Q6 PRN PRN Reason: Pain, moderate (4-7) Last Admin: 05/14/18 19:23 Dose: 5 mg Pantoprazole Sodium (Protonix Ec Tab) 40 mg PO DAILY [facility] Last Admin: 05/14/18 09:23 Dose: 40 mg Potassium Phos/Sodium Phos (Neutra-Phos) 1 pkt PO DAILY [facility] Last Admin: 05/14/18 09:24 Dose: 1 pkt Pregabalin (Lyrica) 75 mg PO BID [facility] Last Admin: 05/14/18 19:25 Dose: 75 mg Simethicone (Mylicon Chew Tab) 80 mg PO TID PRN PRN Reason: GI distress - Labs Labs: 05/13/18 06:25 05/13/18 06:25 PT 13.9 SECONDS (9.7-12.2) H 05/09/18 07:06 INR 1.3 05/09/18 07:06 APTT 29 SECONDS (21-34) 05/09/18 07:06 - Head Exam Head Exam: ATRAUMATIC, NORMAL INSPECTION Assessment and Plan (1) COPD exacerbation Status: Acute (2) Abdominal pain Status: Acute (3) Colostomy complication Status: Chronic (4) Pulmonary embolism Status: Chronic (5) Tachyarrhythmia Status: Acute
[2018-05-15] MEDS: Piperacill/Tazo 3.375gm in Dex 3.375 GM/50 ML BAG IVPB SCH (00:11)
--- NOTE | 2018-05-15 01:25 | PN ---
DATE: 05/13/2018 SUBJECTIVE: The patient, Matt, is on liquid diet. His colostomy is closing. He is afebrile. Low potassium. No nausea or vomiting. Anxious at times. PHYSICAL EXAMINATION: VITAL SIGNS: Blood pressure 108/72, pulse 95, respiratory rate 20, temperature 99.9. LUNGS: Decreased air entry. Positive rhonchi. CARDIOVASCULAR SYSTEM: S1 and S2, regular. ABDOMEN: Soft and nontender. Colostomy site is clean. ASSESSMENT: 1. Chronic obstructive pulmonary disease. 2. Colostomy, status post closure. 3. Steroid-induced diabetes. 4. Anxiety. PLAN: Continue current medication. Monitor the patient. Hal Garcia MD
--- NOTE | 2018-05-15 01:46 | PN ---
DATE: 05/14/2018 SUBJECTIVE: The patient had a fall when he tried to get up and he hit his right side of the chest wall and his head. He has an intractable headache. The patient's rib CT was negative for any fracture of the ribs. The patient was given morphine 2 mg for pain as per his request and CT of the head was negative for any subdural hematoma. The patient other than that is not short of breath. His wound on the anterior abdominal wall is packed with no drainage. He is on liquid diet. PHYSICAL EXAMINATION: VITAL SIGNS: BP is 93/62, pulse 82, respiratory rate 20, temperature 97.8. LUNGS: Decreased air entry. Positive rhonchi. CVS: S1 and S2, regular. Tachycardic. ABDOMEN: Soft. ASSESSMENT: 1. Fall with the head and right rib injury. 2. Exacerbation of chronic obstructive pulmonary disease. 3. Colostomy complications. PLAN: Monitor the patient. Fall precautions. Hal Garcia MD
--- NOTE | 2018-05-15 06:42 | PN ---
DATE: 05/14/2018 SUBJECTIVE: The patient sustained a fall as he lost balance while walking on his own. He hit his right side of the chest and he 21 for some chest discomfort at that region. He denies any back pain. The patient did have a fall during his last admission that resulted in lumbar spinal compression fracture. The patient denies any dizziness or fainting at the time of his fall. PHYSICAL EXAMINATION: VITAL SIGNS: Blood pressure 130/80, heart rate 73, temperature 97.5 and respiration 18. HEENT: Normocephalic. CHEST: Bilateral rhonchi. HEART: S1, S2 are regular. EXTREMITIES: No edema. LABORATORY DATA: Today's blood sugars 101 and 147. Rib series, no gross right rib fracture noted. Multifocal arthrosis. Head CT scan without contrast . ASSESSMENT: 1. Status post fall. 2. Hypertension. 3. Uncontrolled diabetes mellitus. 4. Enterocutaneous fistula. 5. Deep venous thrombosis and pulmonary embolism recently. RECOMMENDATIONS: Continue Cardizem at 30 mg q.i.d, Eliquis 2.5 mg twice a day, Lopressor 25 mg twice a day, Neutra-Phos 1 packet daily, Solu-Medrol 10 mg intravenously daily, Zosyn 3.375 gm intravenously every 6 hours. Mukesh Correia MD
[2018-05-15] MEDS: (Novolin R) Insulin Human Regular 100 units/ml vial SC SCH ×4 (07:37→21:41)
[2018-05-15] MEDS: Budesonide 0.5 mg/2 ml Inhal Susp UD INH SCH ×2 (08:19→19:23)
[2018-05-15] MEDS: Fluticasone-Vilanterol 100/25mcg Diskus INH SCH (08:20)
[2018-05-15] MEDS: guaiFENesin 200 mg/10 ml Syrup UD PO SCH ×4 (09:30→21:39)
[2018-05-15] MEDS: Bismuth Subsalicylate 262 mg Chew Tab PO SCH ×2 (09:32→18:47)
[2018-05-15] MEDS: MethylPREDNISolone 40 mg Vial IVP SCH (09:32)
[2018-05-15] MEDS: Pantoprazole 40 mg EC Tab PO SCH (09:36)
[2018-05-15] MEDS: Potassium & Sodium Phosphate PO SCH (09:36)
[2018-05-15] MEDS: Lidocaine 5% Patch TD SCH (09:43)
--- NOTE | 2018-05-15 21:39 | PN ---
DATE: 05/15/2018 SUBJECTIVE: The patient is still experiencing right-sided sharp chest pain following his fall. PHYSICAL EXAMINATION: VITAL SIGNS: Blood pressure 115/66, heart rate 77, temperature 97.3, respiration 20. HEENT: Normocephalic. CHEST: Minimal rhonchi. HEART: S1 and S2, regular. EXTREMITIES: No edema. Significant muscle wasting. LABORATORY DATA: Today's blood sugar 97 and 290 respectively. ASSESSMENT: 1. Status post fall. 2. Hypertension. 3. Chronic obstructive lung disease. 4. History of recent deep venous thrombosis and pulmonary embolism. RECOMMENDATIONS: Continue Cardizem at ____ four times a day. Increase Eliquis to 5 mg once a day. Continue Lopressor 25 mg once a day, Solu-Medrol 10 mg intravenously daily. Obtain a 12-lead EKG. Mukesh Correia MD
--- NOTE | 2018-05-15 22:17 | CP.PCM.PN ---
Subjective - Subjective Subjective: DICT Objective - Vital Signs/Intake and Output Vital Signs (last 24 hours): Temp Pulse Resp BP Pulse Ox 97.6 F 110 H 20 105/60 97 05/15/18 16:00 05/15/18 19:25 05/15/18 16:00 05/15/18 18:47 05/15/18 16:00 Intake and Output: 05/15/18 05/16/18 18:59 06:59 Intake Total 474 Balance 474 - Medications Medications: Current Medications Albuterol (Ventolin Hfa 90 Mcg/Actuation (8 G)) 1 puff INH RQ6 PRN PRN Reason: Shortness of Breath Alprazolam (Xanax) 0.5 mg PO Q12 [facility] Last Admin: 05/15/18 21:39 Dose: 0.5 mg Apixaban (Eliquis) 5 mg PO BID [facility] Last Admin: 05/15/18 18:46 Dose: 5 mg Bismuth Subsalicylate (Pepto Bismol) 262 mg PO BID [facility] Last Admin: 05/15/18 18:47 Dose: 262 mg Budesonide (Pulmicort Respules) 0.5 mg INH RQ12 [facility] Last Admin: 05/15/18 19:23 Dose: 0.5 mg Diltiazem HCl (Cardizem) 30 mg PO QID [facility] Last Admin: 05/15/18 21:39 Dose: 30 mg Docusate Sodium (Colace) 100 mg PO DAILY [facility] Last Admin: 05/15/18 09:30 Dose: Not Given Fluticasone/Vilanterol (Breo Ellipta 100-25 Mcg Inh) 1 puff INH RQD [facility] Last Admin: 05/15/18 08:20 Dose: 1 puff Guaifenesin (Robitussin) 200 mg PO QID [facility] Last Admin: 05/15/18 21:39 Dose: 200 mg Insulin Human Regular (Novolin R) 0 unit SC [facility]; Protocol Last Admin: 05/15/18 21:41 Dose: Not Given Lidocaine (Lidoderm) 1 ea TD DAILY [facility] Last Admin: 05/15/18 09:43 Dose: Not Given Methylprednisolone (Solu-Medrol) 10 mg IVP DAILY [facility] Last Admin: 05/15/18 09:32 Dose: 10 mg Metoprolol Tartrate (Lopressor) 25 mg PO BID [facility] Last Admin: 05/15/18 18:47 Dose: Not Given Morphine Sulfate (Morphine) 2 mg IVP Q4 PRN PRN Reason: Pain, severe (8-10) Last Admin: 05/15/18 18:46 Dose: 2 mg Ondansetron HCl (Zofran Inj) 4 mg IVP Q4 PRN PRN Reason: Nausea/Vomiting Pantoprazole Sodium (Protonix Ec Tab) 40 mg PO DAILY [facility] Last Admin: 05/15/18 09:36 Dose: 40 mg Potassium Phos/Sodium Phos (Neutra-Phos) 1 pkt PO DAILY [facility] Last Admin: 05/15/18 09:36 Dose: 1 pkt Pregabalin (Lyrica) 75 mg PO BID [facility] Last Admin: 05/15/18 18:46 Dose: 75 mg Simethicone (Mylicon Chew Tab) 80 mg PO TID PRN PRN Reason: GI distress - Labs Labs: 05/13/18 06:25 05/13/18 06:25 PT 13.9 SECONDS (9.7-12.2) H 05/09/18 07:06 INR 1.3 05/09/18 07:06 APTT 29 SECONDS (21-34) 05/09/18 07:06 Assessment and Plan (1) COPD exacerbation Status: Acute (2) Abdominal pain Status: Acute (3) Colostomy complication Status: Chronic (4) Pulmonary embolism Status: Chronic (5) Tachyarrhythmia Status: Acute
[2018-05-15] MEDS ORDERED: Potassium Chloride 20 mEq/15 ml LIQ UD PO STA (22:42)
[2018-05-16] MEDS: Budesonide 0.5 mg/2 ml Inhal Susp UD INH SCH (07:45)
[2018-05-16] MEDS: Fluticasone-Vilanterol 100/25mcg Diskus INH SCH (07:45)
[2018-05-16] MEDS: (Novolin R) Insulin Human Regular 100 units/ml vial SC SCH ×4 (08:10→21:46)
--- NOTE | 2018-05-16 08:10 | PN ---
DATE: 05/15/2018 SUBJECTIVE: Nathen Gutierrez had a fall yesterday. His rib series and CT of the head were negative; however, he has a lot of pain in different spots including back pain, right chest wall pain, headache. The patient is not short of breath. No nausea or vomiting. He has been seen by Surgery. No fever. His sodium is low. His potassium is low. No nausea or vomiting. He remains tachycardic. PHYSICAL EXAMINATION: VITAL SIGNS: BP 105/64, pulse 118, respiratory rate 20, temperature 97.6. LUNGS: Clear. Decreased air entry. CARDIOVASCULAR SYSTEM: S1, S2, regular. Tachycardic. ABDOMEN: Postop and has a wound in right lower quadrant. ASSESSMENT: 1. Status post colostomy repair. 2. Exacerbation of chronic obstructive pulmonary disease. 3. Fall with multiple injuries. 4. Steroid-induced diabetes. PLAN: Pain medication. Physical therapy. Rehab. Fall precaution. Hal Garcia MD
[2018-05-16] MEDS: Pantoprazole 40 mg EC Tab PO SCH (09:40)
[2018-05-16] MEDS: guaiFENesin 200 mg/10 ml Syrup UD PO SCH ×4 (09:41→22:06)
[2018-05-16] MEDS: Lidocaine 5% Patch TD SCH (09:41)
[2018-05-16] MEDS: Potassium & Sodium Phosphate PO SCH (09:41)
[2018-05-16] MEDS: MethylPREDNISolone 40 mg Vial IVP SCH (09:41)
[2018-05-16] MEDS: Bismuth Subsalicylate 262 mg Chew Tab PO SCH ×2 (09:43→18:13)
--- NOTE | 2018-05-16 15:36 | CP.PCM.PN ---
Subjective - Date & Time of Evaluation Date of Evaluation: 05/16/18 Time of Evaluation: 11:35 - Subjective Subjective: Patient seen today , denies any chest pain, sob, palpitations, dizziness, mild pain to trevor surgical site RLQ improved with pain medication dressing intact, no drainage noted a febrile seen by surgical team cleared fro discharge from surgical standpoint and f/u with Dr. Nieto office in 1-2 weeks Objective - Vital Signs/Intake and Output Vital Signs (last 24 hours): Temp Pulse Resp BP Pulse Ox 97.8 F 75 20 98/62 L 100 05/16/18 08:13 05/16/18 13:50 05/16/18 08:13 05/16/18 13:50 05/16/18 08:13 Intake and Output: 05/16/18 05/16/18 06:59 18:59 Intake Total 100 Output Total 475 Balance -375 - Medications Medications: Current Medications Albuterol (Ventolin Hfa 90 Mcg/Actuation (8 G)) 1 puff INH RQ6 PRN PRN Reason: Shortness of Breath Alprazolam (Xanax) 0.5 mg PO Q12 [facility] Last Admin: 05/16/18 09:40 Dose: 0.5 mg Apixaban (Eliquis) 5 mg PO BID [facility] Last Admin: 05/16/18 09:40 Dose: 5 mg Bismuth Subsalicylate (Pepto Bismol) 262 mg PO BID [facility] Last Admin: 05/16/18 09:43 Dose: 262 mg Budesonide (Pulmicort Respules) 0.5 mg INH RQ12 [facility] Last Admin: 05/16/18 07:45 Dose: 0.5 mg Diltiazem HCl (Cardizem) 30 mg PO QID [facility] Last Admin: 05/16/18 13:50 Dose: Not Given Docusate Sodium (Colace) 100 mg PO DAILY [facility] Last Admin: 05/16/18 09:40 Dose: 100 mg Fluticasone/Vilanterol (Breo Ellipta 100-25 Mcg Inh) 1 puff INH RQD [facility] Last Admin: 05/16/18 07:45 Dose: 1 puff Guaifenesin (Robitussin) 200 mg PO QID [facility] Last Admin: 05/16/18 13:50 Dose: 200 mg Insulin Human Regular (Novolin R) 0 unit SC ACHS [facility]; Protocol Last Admin: 05/16/18 12:29 Dose: 1 units Lidocaine (Lidoderm) 1 ea TD DAILY [facility] Last Admin: 05/16/18 09:41 Dose: Not Given Methylprednisolone (Solu-Medrol) 10 mg IVP DAILY [facility] Last Admin: 05/16/18 09:41 Dose: 10 mg Metoprolol Tartrate (Lopressor) 25 mg PO BID [facility] Last Admin: 05/16/18 09:40 Dose: 25 mg Morphine Sulfate (Morphine) 2 mg IVP Q4 PRN PRN Reason: Pain, severe (8-10) Last Admin: 05/16/18 12:29 Dose: 2 mg Ondansetron HCl (Zofran Inj) 4 mg IVP Q4 PRN PRN Reason: Nausea/Vomiting Pantoprazole Sodium (Protonix Ec Tab) 40 mg PO DAILY [facility] Last Admin: 05/16/18 09:40 Dose: 40 mg Potassium Phos/Sodium Phos (Neutra-Phos) 1 pkt PO DAILY [facility] Last Admin: 05/16/18 09:41 Dose: 1 pkt Pregabalin (Lyrica) 75 mg PO BID [facility] Last Admin: 05/16/18 09:40 Dose: 75 mg - Labs Labs: 05/13/18 06:25 05/13/18 06:25 PT 13.9 SECONDS (9.7-12.2) H 05/09/18 07:06 INR 1.3 05/09/18 07:06 APTT 29 SECONDS (21-34) 05/09/18 07:06 Assessment and Plan - Assessment and Plan (Free Text) Assessment: A/P 68M with PMH sig for COPD, hx Colon CA s/p resection & colostomy admitted with SOB and ileostomy prolapse s/p ileostomy reversal, ileocecal anastomosis POD#14 seen by Surgical team today, cleared for discharge home from surgical standpoint and f/u with Dr. Nieto office in 1-2 weeks seen by Jose Waters, patient stable for discharge home today and f/u with Dr. Garcia repeat lab done now reviewed - K 2.7 and calcium of 6.7 - will replace electrolytes and repeat lab in am and hold discharge for now If stable will discharge patient in am
[2018-05-16 17:27] LABS: BLOOD UREA NITROGEN 5 mg/dL (9-20); CALCIUM 6.2 mg/dl (8.6-10.4); GFR NON-AFRICAN AMERICAN > 60
[2018-05-16] MEDS ORDERED: Potassium Chloride 20 mEq/15 ml LIQ UD PO SCH (18:00)
[2018-05-16] MEDS: Potassium Chloride 20 mEq/15 ml LIQ UD PO SCH ×3 (18:11→22:04)
--- NOTE | 2018-05-16 21:37 | PN ---
DATE: 05/16/2018 SUBJECTIVE: The patient is still experiencing right-sided chest discomfort. PHYSICAL EXAMINATION: VITAL SIGNS: Blood pressure 98/61, heart rate 81, temperature 97.6, and respiration 20. HEENT: Normocephalic. CHEST: Minimal rhonchi. HEART: S1 and S2, regular. EXTREMITIES: Significant muscle wasting. LABORATORY DATA: Today's blood sugars are 111 and 173. ASSESSMENT: 1. Sinus tachycardia which improved. 2. Systemic hypertension. 3. Status post reversal of ileostomy, currently with enterocutaneous fistula. 4. History of recent deep vein thrombosis and pulmonary embolus. 5. Chronic obstructive lung disease. RECOMMENDATIONS: Case was discussed with [employer]. The patient can be discharged on Cardizem at 30 mg four times a day. Discontinue Lopressor. Continue Eliquis 5 mg orally twice a day. Obtain 12-lead EKG prior to the patient's discharge. Mukesh Correia MD
--- NOTE | 2018-05-16 21:54 | CP.PCM.PN ---
Subjective - Subjective Subjective: dictated Objective - Vital Signs/Intake and Output Vital Signs (last 24 hours): Temp Pulse Resp BP Pulse Ox 97.6 F 81 20 98/61 L 98 05/16/18 16:07 05/16/18 16:07 05/16/18 16:07 05/16/18 16:07 05/16/18 16:07 Intake and Output: 05/16/18 05/17/18 18:59 06:59 Intake Total 100 Output Total 475 Balance -375 - Medications Medications: Current Medications Albuterol (Ventolin Hfa 90 Mcg/Actuation (8 G)) 1 puff INH RQ6 PRN PRN Reason: Shortness of Breath Alprazolam (Xanax) 0.5 mg PO Q12 [facility] Last Admin: 05/16/18 21:47 Dose: 0.5 mg Apixaban (Eliquis) 5 mg PO BID [facility] Last Admin: 05/16/18 18:11 Dose: 5 mg Bismuth Subsalicylate (Pepto Bismol) 262 mg PO BID [facility] Last Admin: 05/16/18 18:13 Dose: Not Given Budesonide (Pulmicort Respules) 0.5 mg INH RQ12 [facility] Last Admin: 05/16/18 07:45 Dose: 0.5 mg Diltiazem HCl (Cardizem) 30 mg PO QID [facility] Last Admin: 05/16/18 21:46 Dose: 30 mg Docusate Sodium (Colace) 100 mg PO DAILY [facility] Last Admin: 05/16/18 09:40 Dose: 100 mg Fluticasone/Vilanterol (Breo Ellipta 100-25 Mcg Inh) 1 puff INH RQD [facility] Last Admin: 05/16/18 07:45 Dose: 1 puff Guaifenesin (Robitussin) 200 mg PO QID [facility] Last Admin: 05/16/18 18:11 Dose: 200 mg Insulin Human Regular (Novolin R) 0 unit SC [facility]; Protocol Last Admin: 05/16/18 21:46 Dose: Not Given Lidocaine (Lidoderm) 1 ea TD DAILY [facility] Last Admin: 05/16/18 09:41 Dose: Not Given Methylprednisolone (Solu-Medrol) 10 mg IVP DAILY [facility] Last Admin: 05/16/18 09:41 Dose: 10 mg Morphine Sulfate (Morphine) 2 mg IVP Q4 PRN PRN Reason: Pain, severe (8-10) Last Admin: 05/16/18 16:38 Dose: 2 mg Ondansetron HCl (Zofran Inj) 4 mg IVP Q4 PRN PRN Reason: Nausea/Vomiting Pantoprazole Sodium (Protonix Ec Tab) 40 mg PO DAILY [facility] Last Admin: 05/16/18 09:40 Dose: 40 mg Potassium Chloride (Potassium Chloride Oral Soln) 40 meq PO ONCE ONE Stop: 05/17/18 04:01 Potassium Chloride (Potassium Chloride Oral Soln) 40 meq PO Q4H [facility] Stop: 05/16/18 22:01 Last Admin: 05/16/18 18:11 Dose: 40 meq Potassium Chloride (Potassium Chloride Oral Soln) 40 meq PO Q4 [facility] Stop: 05/18/18 18:01 Last Admin: 05/16/18 20:05 Dose: Not Given Potassium Phos/Sodium Phos (Neutra-Phos) 1 pkt PO DAILY [facility] Last Admin: 05/16/18 09:41 Dose: 1 pkt Pregabalin (Lyrica) 75 mg PO BID [facility] Last Admin: 05/16/18 18:11 Dose: 75 mg - Labs Labs: 05/13/18 06:25 05/16/18 16:50 PT 13.9 SECONDS (9.7-12.2) H 05/09/18 07:06 INR 1.3 05/09/18 07:06 APTT 29 SECONDS (21-34) 05/09/18 07:06 Assessment and Plan (1) COPD exacerbation Status: Acute (2) Abdominal pain Status: Acute (3) Colostomy complication Status: Chronic (4) Pulmonary embolism Status: Chronic (5) Tachyarrhythmia Status: Acute
[2018-05-16 22:40] LABS: VENOUS BLOOD GAS BASE EXCESS 3.9 mmol/L (0.0-2.0); VENOUS BLOOD GAS PCO2 51 mmHg (40-60); VENOUS BLOOD GAS PO2 30 mm/Hg (30-55); VENOUS BLOOD PH 7.38 (7.32-7.43)
[2018-05-17] MEDS: Potassium Chloride 20 mEq/15 ml LIQ UD PO SCH ×2 (00:51→04:24)
[2018-05-17] MEDS ORDERED: Potassium Chloride 20 mEq/15 ml LIQ UD PO ONE (04:00)
--- NOTE | 2018-05-17 06:58 | PN ---
DATE: 05/16/2018 SUBJECTIVE: The patient has severe hypokalemia with potassium of 2.7, so his discharge is on hold. He is afebrile, less short of breath, on oxygen. He is status post closure of the colostomy. No fever. No chest pain. He has pain in the abdomen. PHYSICAL EXAMINATION: VITAL SIGNS: Blood pressure 98/61, pulse 81, respiratory rate 20, temperature 97.8. LUNGS: Bilateral rhonchi. Decreased air entry. CARDIOVASCULAR SYSTEM: S1, S2, regular. Tachycardic. ABDOMEN: Soft. ASSESSMENT: 1. Exacerbation of chronic obstructive pulmonary disease. 2. Colostomy complications, status post closure. 3. Hypokalemia, potassium supplementation. 4. Steroid-induced diabetes. PLAN: Repeat potassium, supplement potassium and possible discharge in a.m. Hal Garcia MD
[2018-05-17] MEDS: Budesonide 0.5 mg/2 ml Inhal Susp UD INH SCH (07:21)
[2018-05-17 07:55] VITALS: TEMP 97.6; O2SAT 94
[2018-05-17] MEDS: (Novolin R) Insulin Human Regular 100 units/ml vial SC SCH ×2 (08:14→12:02)
[2018-05-17 09:33] LABS: BLOOD UREA NITROGEN 6 mg/dL (9-20); CALCIUM 9.6 mg/dl (8.6-10.4); GFR NON-AFRICAN AMERICAN > 60
[2018-05-17] MEDS: Bismuth Subsalicylate 262 mg Chew Tab PO SCH (10:18)
[2018-05-17] MEDS: Pantoprazole 40 mg EC Tab PO SCH (10:18)
[2018-05-17] MEDS: guaiFENesin 200 mg/10 ml Syrup UD PO SCH ×2 (10:18→13:02)
[2018-05-17] MEDS: MethylPREDNISolone 40 mg Vial IVP SCH (10:19)
[2018-05-17] MEDS: Lidocaine 5% Patch TD SCH (10:19)
[2018-05-17] MEDS: Potassium & Sodium Phosphate PO SCH (10:19)
[2018-05-17 11:43] LABS: BASO # 0.1 K/uL (0.0-0.2); BASO % 0.8 % (0.0-2.0); EOS # 0.1 K/uL (0.0-0.7); EOS % 1.4 % (0.0-4.0); HEMOGLOBIN 11.2 g/dL (12.0-18.0); LYMPH # 1.9 K/uL (1.0-4.3); LYMPH % 20.8 % (20.0-40.0); MEAN CELL VOLUME 74.6 fL (80.0-94.0); MEAN CORPUSCULAR HEMOGLOBIN 24.7 pg (27.0-31.0); MONO # 0.4 K/uL (0.0-0.8); MONO % 4.6 % (0.0-10.0); NEUT # 6.5 K/uL (1.8-7.0); NEUT % 72.4 % (50.0-75.0); RBC 4.54 Mil/uL (4.40-5.90); RED CELL DISTRIBUTION WIDTH 25.5 % (11.5-14.5)
[2018-05-17 13:05] VITALS: BP 118/70; PULSE 103
--- NOTE | 2018-05-17 13:09 | CP.PCM.PN ---
Subjective - Date & Time of Evaluation Date of Evaluation: 05/17/18 Time of Evaluation: 13:09 - Subjective Subjective: Pulmonary Follow up, Covering Dr Nuno The patient was Seen/interviewed and examined by me at the bedside, Medical records reviewed and Management issues were discussed and formulated with the house staff. Events reviewed Objective - Vital Signs/Intake and Output Vital Signs (last 24 hours): Temp Pulse Resp BP Pulse Ox 97.6 F 103 H 20 118/70 94 L 05/17/18 07:00 05/17/18 13:04 05/17/18 07:00 05/17/18 13:04 05/17/18 07:00 Intake and Output: 05/17/18 05/17/18 06:59 18:59 Intake Total 500 Output Total 500 Balance 0 - Medications Medications: Current Medications Albuterol (Ventolin Hfa 90 Mcg/Actuation (8 G)) 1 puff INH RQ6 PRN PRN Reason: Shortness of Breath Alprazolam (Xanax) 0.5 mg PO Q12 [facility] Last Admin: 05/17/18 10:18 Dose: 0.5 mg Apixaban (Eliquis) 5 mg PO BID [facility] Last Admin: 05/17/18 10:18 Dose: 5 mg Bismuth Subsalicylate (Pepto Bismol) 262 mg PO BID [facility] Last Admin: 05/17/18 10:18 Dose: 262 mg Budesonide (Pulmicort Respules) 0.5 mg INH RQ12 [facility] Last Admin: 05/17/18 07:21 Dose: 0.5 mg Diltiazem HCl (Cardizem) 30 mg PO QID [facility] Last Admin: 05/17/18 13:02 Dose: 30 mg Docusate Sodium (Colace) 100 mg PO DAILY [facility] Last Admin: 05/17/18 10:18 Dose: 100 mg Fluticasone/Vilanterol (Breo Ellipta 100-25 Mcg Inh) 1 puff INH RQD [facility] Last Admin: 05/16/18 07:45 Dose: 1 puff Guaifenesin (Robitussin) 200 mg PO QID [facility] Last Admin: 05/17/18 13:02 Dose: 200 mg Insulin Human Regular (Novolin R) 0 unit SC ACHS [facility]; Protocol Last Admin: 05/17/18 12:02 Dose: 2 units Lidocaine (Lidoderm) 1 ea TD DAILY [facility] Last Admin: 05/17/18 10:19 Dose: Not Given Methylprednisolone (Solu-Medrol) 10 mg IVP DAILY [facility] Last Admin: 05/17/18 10:19 Dose: 10 mg Morphine Sulfate (Morphine) 2 mg IVP Q4 PRN PRN Reason: Pain, severe (8-10) Last Admin: 05/17/18 08:26 Dose: 2 mg Ondansetron HCl (Zofran Inj) 4 mg IVP Q4 PRN PRN Reason: Nausea/Vomiting Pantoprazole Sodium (Protonix Ec Tab) 40 mg PO DAILY [facility] Last Admin: 05/17/18 10:18 Dose: 40 mg Potassium Phos/Sodium Phos (Neutra-Phos) 1 pkt PO DAILY [facility] Last Admin: 05/17/18 10:19 Dose: 1 pkt Pregabalin (Lyrica) 75 mg PO BID [facility] Last Admin: 05/17/18 10:18 Dose: 75 mg - Labs Labs: 05/17/18 11:29 05/17/18 09:03 PT 13.9 SECONDS (9.7-12.2) H 05/09/18 07:06 INR 1.3 05/09/18 07:06 APTT 29 SECONDS (21-34) 05/09/18 07:06 Assessment and Plan (1) COPD exacerbation Status: Acute (2) Asthma Status: Acute
[2018-05-17] MEDS ORDERED: Albuterol HFA 90 mcg/actuation (8 g) INH SCH (16:00)
--- NOTE | 2018-05-17 16:54 | PN ---
DATE: 05/17/2018 SUBJECTIVE: The patient is tolerating a soft diet. He is still experiencing right-sided chest discomfort. Plan discharge for yesterday was canceled because the patient was significantly hypokalemic and he is receiving potassium replacement. PHYSICAL EXAMINATION: VITAL SIGNS: Blood pressure 131/71, heart rate 110, temperature 97.6, and respirations 20. HEENT: Normocephalic. CHEST: Bilateral rhonchi. HEART: S1 and S2, regular. EXTREMITIES: No edema. LABORATORY DATA: Today labs show hemoglobin and hematocrit 11.2 and 33.9; white count and platelet count are within normal limits. Today's SMA-7 within normal limits except for glucose of 128, BUN and creatinine of 6 and 0.4, potassium is 4.3 after it was corrected. Yesterday's potassium was 2.7. ASSESSMENT: 1. Status post revision of ileostomy. 2. Enterocutaneous fistula. 3. Deep vein thrombosis and recent pulmonary embolus. 4. Hypertension. 5. Sinus tachycardia. 6. Status post fall. RECOMMENDATIONS: Continue current Cardizem at 30 mg four times a day, Eliquis at 5 mg once a day, Robitussin 200 mg four times a day, Solu-Medrol 10 mg intravenously daily. I will obtain 12-lead EKG now. Mukesh Correia MD
--- NOTE | 2018-05-17 23:41 | CP.PCM.DIS ---
Provider - Provider Date of Admission: 04/26/18 15:07 Attending physician: Hal Garcia MD Diagnosis - Discharge Diagnosis (1) COPD exacerbation Status: Acute Priority: High (2) Abdominal pain Status: Acute Priority: High (3) Colostomy complication Status: Chronic Priority: Medium (4) Pulmonary embolism Status: Chronic Priority: Medium (5) Tachyarrhythmia Status: Acute Priority: High Hospital Course - Lab Results Lab Results: Micro Results 05/02/18 01:14 Naris MRSA Culture - Final MRSA NOT DETECTED 04/30/18 Unknown Nose MRSA Culture (Admit) - Final MRSA NOT DETECTED 04/25/18 15:20 Blood Blood Culture - Final NO GROWTH AFTER 5 DAYS 04/25/18 15:20 Blood Gram Stain - Final TEST NOT PERFORMED 04/25/18 18:51 Blood Blood Culture - Final NO GROWTH AFTER 5 DAYS 04/25/18 18:51 Blood Gram Stain - Final TEST NOT PERFORMED Most Recent Lab Values WBC 9.0 K/uL (4.8-10.8) 05/17/18 11:29 RBC 4.54 Mil/uL (4.40-5.90) 05/17/18 11:29 Hgb 11.2 g/dL (12.0-18.0) L 05/17/18 11:29 Hct 33.9 % (35.0-51.0) L 05/17/18 11:29 MCV 74.6 fL (80.0-94.0) L 05/17/18 11:29 MCH 24.7 pg (27.0-31.0) L 05/17/18 11:29 MCHC 33.0 g/dL (33.0-37.0) 05/17/18 11:29 RDW 25.5 % (11.5-14.5) H 05/17/18 11:29 Plt Count 199 K/uL (130-400) 05/17/18 11:29 MPV 9.0 fL (7.2-11.7) 05/17/18 11:29 Neut % (Auto) 72.4 % (50.0-75.0) 05/17/18 11:29 Lymph % (Auto) 20.8 % (20.0-40.0) 05/17/18 11:29 [place] % (Auto) 4.6 % (0.0-10.0) 05/17/18 11:29 Eos % (Auto) 1.4 % (0.0-4.0) 05/17/18 11:29 Baso % (Auto) 0.8 % (0.0-2.0) 05/17/18 11:29 Neut # (Auto) 6.5 K/uL (1.8-7.0) 05/17/18 11:29 Lymph # (Auto) 1.9 K/uL (1.0-4.3) 05/17/18 11:29 [place] # (Auto) 0.4 K/uL (0.0-0.8) 05/17/18 11:29 Eos # (Auto) 0.1 K/uL (0.0-0.7) 05/17/18 11:29 Baso # (Auto) 0.1 K/uL (0.0-0.2) 05/17/18 11:29 Neutrophils % (Manual) 84 % (50-75) H 05/11/18 11:50 Band Neutrophils % 1 % (0-2) 05/11/18 11:50 Lymphocytes % (Manual) 8 % (20-40) L 05/11/18 11:50 Monocytes % (Manual) 7 % (0-10) 05/11/18 11:50 Platelet Estimate Normal (NORMAL) 05/11/18 11:50 Plt Clumps, EDTA Present 05/04/18 07:17 Large Platelets Present 05/04/18 07:17 Polychromasia Slight 05/04/18 07:17 Hypochromasia (manual) Slight 05/11/18 11:50 Poikilocytosis (manual Slight 05/11/18 11:50 Basophilic Stippling Slight 05/04/18 07:17 Anisocytosis (manual) Moderate 05/11/18 11:50 Microcytosis (manual) Moderate 05/11/18 11:50 Macrocytosis (manual) Slight 05/11/18 11:50 Target Cells Slight 05/08/18 11:15 Tear Drop Cells Slight 05/11/18 11:50 Ovalocytes Moderate 05/11/18 11:50 Eva Cells Slight 05/11/18 11:50 Schistocytes Slight 05/11/18 11:50 PT 13.9 SECONDS (9.7-12.2) H 05/09/18 07:06 INR 1.3 05/09/18 07:06 APTT 29 SECONDS (21-34) 05/09/18 07:06 Puncture Site Rba 04/25/18 18:55 pCO2 39 mm/Hg (35-45) 04/25/18 18:55 pO2 30 mm/Hg (30-55) 05/16/18 20:41 HCO3 26.6 mmol/L (21-28) 04/25/18 18:55 ABG pH 7.44 (7.35-7.45) 04/25/18 18:55 ABG Total CO2 27.7 mmol/L (22-28) 04/25/18 18:55 ABG O2 Saturation 99.8 % (95-98) H 04/25/18 18:55 ABG Base Excess 2.2 mmol/L (-2.0-3.0) 04/25/18 18:55 ABG Hemoglobin 10.2 g/dL (11.7-17.4) L 04/25/18 18:55 ABG Carboxyhemoglobin 2.5 % (0.5-1.5) H 04/25/18 18:55 POC ABG HHb (Measured) 0.2 % (0.0-5.0) 04/25/18 18:55 ABG Methemoglobin 1.2 % (0.0-3.0) 04/25/18 18:55 Jesus Test Pos 04/25/18 18:55 VBG pH 7.38 (7.32-7.43) 05/16/18 20:41 VBG pCO2 51 mmHg (40-60) 05/16/18 20:41 VBG HCO3 26.8 mmol/L 05/16/18 20:41 VBG Total CO2 31.8 mmol/L (22-28) H 05/16/18 20:41 VBG O2 Sat (Calc) 58.9 % (40-65) 05/16/18 20:41 VBG Base Excess 3.9 mmol/L (0.0-2.0) H 05/16/18 20:41 VBG Potassium 4.7 mmol/L (3.6-5.2) 05/16/18 20:41 A-a O2 Difference 69.0 mm/Hg 04/25/18 18:55 Respiratory Index 0.6 04/25/18 18:55 Hgb O2 Saturation 96.1 % (95.0-98.0) 04/25/18 18:55 Sodium 131.0 mmol/l (132-148) L 05/16/18 20:41 Chloride 98.0 mmol/L (98-107) 05/16/18 20:41 Glucose 232 mg/dl (75-110) H 05/16/18 20:41 Lactate 3.9 mmol/L (0.7-2.1) H 05/16/18 20:41 Liter Flow 3.0 04/25/18 18:55 FiO2 33.0 % 04/25/18 18:55 Sodium 142 mmol/L (132-148) 05/17/18 09:03 Potassium 4.3 mmol/L (3.6-5.2) 05/17/18 09:03 Chloride 106 mmol/L (98-107) 05/17/18 09:03 Carbon Dioxide 30 mmol/L (22-30) 05/17/18 09:03 Anion Gap 10 (10-20) 05/17/18 09:03 BUN 6 mg/dL (9-20) L 05/17/18 09:03 Creatinine 0.4 mg/dL (0.8-1.5) L 05/17/18 09:03 Est GFR ( Amer) > 60 05/17/18 09:03 Est GFR (Non-Af Amer) > 60 05/17/18 09:03 POC Glucose (mg/dL) 206 mg/dL (65-110) H 05/17/18 11:25 Random Glucose 128 mg/dL (75-110) H 05/17/18 09:03 Lactic Acid 2.2 mmol/L (0.7-2.1) H 05/17/18 01:07 Calcium 9.6 mg/dl (8.6-10.4) 05/17/18 09:03 Phosphorus 2.2 mg/dL (2.5-4.5) L 05/13/18 06:25 Magnesium 2.1 mg/dL (1.6-2.3) 05/13/18 06:25 Iron 11 ug/dL (49-181) L 04/27/18 16:30 TIBC 366 ug/dL (250-450) 04/27/18 16:30 % Saturation 3 (20-55) L 04/27/18 16:30 Total Bilirubin 0.6 mg/dL (0.2-1.3) 05/11/18 11:50 AST 22 U/L (17-59) 05/11/18 11:50 ALT 37 U/L (21-72) 05/11/18 11:50 Alkaline Phosphatase 119 U/L (38-126) 05/11/18 11:50 Troponin I < 0.0120 ng/mL (0.00-0.120) 04/26/18 13:59 NT-Pro-B Natriuret Pep 44.3 pg/mL (0-900) 04/25/18 18:21 Total Protein 5.6 g/dL (6.3-8.3) L 05/11/18 11:50 Albumin 3.2 g/dL (3.5-5.0) L 05/11/18 11:50 Globulin 2.4 gm/dL (2.2-3.9) 05/11/18 11:50 Albumin/Globulin Ratio 1.3 (1.0-2.1) 05/11/18 11:50 Venous Blood Potassium 4.7 mmol/L (3.6-5.2) 05/16/18 20:41 Vancomycin Trough < 5.0 ug/mL (5.0-10.0) L 04/30/18 22:24 Blood Type O POSITIVE 05/09/18 07:06 Antibody Screen Negative 05/09/18 07:06 Discharge Exam - Head Exam Head Exam: ATRAUMATIC, NORMAL INSPECTION Discharge Plan - Discharge Medications Prescriptions: Apixaban [Eliquis] 5 mg PO BID #60 tab Cyclobenzaprine [Flexeril] 5 mg PO BID #60 tab Potassium Chloride [Klor-Con 10] 10 meq PO DAILY #15 tablet.er oxyCODONE/Acetaminophen [Percocet 5/325 mg Tab] 1 ea PO Q4 #100 tab - Follow Up Plan Condition: STABLE Disposition: HOME/ ROUTINE Instructions: Type 2 Diabetes, Heart Healthy Diet, Heart Failure, Adult (DC), Exacerbation of COPD (DC), Appendectomy, Laparoscopic Surgery (DC), Ostomy Reversal Additional Instructions: Please f/u with Dr. Westbrook office in 1 week Please f/u with Dr. Nieto office in 1- 2 weeks- call and make appointment Continue medication as per med. rec. wound care daily CLEANSE OPEN SURGICAL WOUND WELL USING MOISTENED GAUZE (4 X 4'S) TO REMOVE ALL DEBRIS AND EXUDATE; THEN USING SKIN PREP (WIPES OR SPRAY), APPLY ALL AROUND OPEN WOUND (NOT INSIDE), THEN PACK WOUND USING AQUACEL AG EXTRA (OR CALCIUM ALGINATE WITH SILVER) AND USING ADHESIVE ISLAND DRESSING, APPLY ONE SIDE OF DRESSING TO SKIN, AND GENTLY HELP TO PULL WOUND CLOSED THEN PLACING OTHER SIDE OF DRESSING DOWN TO FULLY CLOSE. THIS IS TO BE DONE EVERY OTHER DAY, OR NEEDED IF WOUND BECOMES SOAKED. 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
--- NOTE | 2018-05-20 10:17 | DS ---
ADMISSION DIAGNOSIS: Chronic obstructive pulmonary disease. DISCHARGE DIAGNOSES: 1. Acute exacerbation of chronic obstructive pulmonary disease. 2. Colostomy complication status post closure. 3. Steroid-induced diabetes. 4. Anxiety. 5. Postherpetic neuralgia. HISTORY OF PRESENT ILLNESS: This is a 68-year-old male well known to me with a history of COPD; steroid-induced diabetes; chronically home bound, on oxygen; home BiPAP; in his usual status of health. The patient is ambulatory, and he was admitted because of shortness of breath, cough, congestion, wheezing. It was treated with Solu-Medrol, oxygen, nebulizer, BiPAP, expectorant, antibiotic. Pulmonary evaluation was done, and the patient had lot of problems with his colostomy. The patient underwent a major surgery and his colostomy was closed. The colostomy closure was successful. The patient did well postoperatively, and he is being stabilized, treated, and discharged. PHYSICAL EXAMINATION: VITAL SIGNS: Blood pressure 118/70, pulse 103, respiratory rate is 20, temperature 97.6. LUNGS: Decreased air entry. Positive rhonchi. CVS: S1, S2 regular. Tachycardiac. ABDOMEN: Postop bowel sounds are present. BELL STAFF: Awake, alert, oriented x3. PLAN: Discharge the patient. Hal Garcia MD
--- NOTE | 2018-05-20 10:50 | CARD ---
APPROVED REPORT Date of service: 05/17/2018 EKG Measurement Heart [id number] <Conclusion> Normal sinus rhythm Normal ECG
== END 2018-05-17 16:00 | disposition home or self-care (01) | DRG 330 ==
LOC: C.ER 17:18 → C.9E 21:36 → C.3T 22:02 → OBSVTOIN 04-26 15:07 → C.9I 04-30 15:41 → C.5S 05-02 00:25
PROVIDERS: ADMIT Internal Medicine; ATTEND Internal Medicine
PROC: 5A09557 Assistance with Respiratory Ventilation, Greater than 96 Consecutive Hours, Continuous Positive Airway Pressure (ICD-10-PCS; 2018-04-26)
PROC: 0DBB0ZZ Excision of Ileum, Open Approach (ICD-10-PCS; 2018-04-30)
PROC: 0DTJ0ZZ Resection of Appendix, Open Approach (ICD-10-PCS; 2018-04-30)
PROC: 0D1B0Z4 Bypass Ileum to Cutaneous, Open Approach (ICD-10-PCS; principal; 2018-04-30 14:15)
DX: K94.09 Other complications of colostomy (principal); J44.1 Chronic obstructive pulmonary disease with (acute) exacerbation; K56.7 Ileus, unspecified; K63.2 Fistula of intestine; C18.9 Malignant neoplasm of colon, unspecified; I13.0 Hypertensive heart and chronic kidney disease with heart failure and stage 1 through stage 4 chronic kidney disease, or unspecified chronic kidney disease; E87.2 Acidosis; Z99.81 Dependence on supplemental oxygen; Z66 Do not resuscitate; D63.8 Anemia in other chronic diseases classified elsewhere; E09.65 Drug or chemical induced diabetes mellitus with hyperglycemia; E11.22 Type 2 diabetes mellitus with diabetic chronic kidney disease; E86.0 Dehydration; E87.6 Hypokalemia; F41.9 Anxiety disorder, unspecified; G47.30 Sleep apnea, unspecified; I50.9 Heart failure, unspecified; K52.9 Noninfective gastroenteritis and colitis, unspecified; N18.9 Chronic kidney disease, unspecified; K43.5 Parastomal hernia without obstruction or gangrene; E78.00 Pure hypercholesterolemia, unspecified

== ENCOUNTER 2018-08-31 11:25 | Inpatient (IN) | payer MEDICARE, BC ==
[2018-08-31 11:26] VITALS: BMI 22.8
[2018-08-31 12:13] LABS: BASO # 0.1 K/uL (0.0-0.2); BASO % 1.4 % (0.0-2.0); EOS # 0.2 K/uL (0.0-0.7); EOS % 2.9 % (0.0-4.0); HEMOGLOBIN 9.8 g/dL (12.0-18.0); LYMPH % 13.9 % (20.0-40.0); MEAN CORPUSCULAR HEMOGLOBIN 22.1 pg (27.0-31.0); MEAN CORPUSCULAR HGB CONC 32.3 g/dL (33.0-37.0); MEAN PLATELET VOLUME 7.8 fL (7.2-11.7); MONO # 0.6 K/uL (0.0-0.8); NEUT # 5.2 K/uL (1.8-7.0); NEUT % 73.8 % (50.0-75.0); RBC 4.42 Mil/uL (4.40-5.90); RED CELL DISTRIBUTION WIDTH 16.1 % (11.5-14.5)
[2018-08-31 12:15] LABS: MEAN CELL VOLUME 68.4 fL (80.0-94.0)
[2018-08-31 12:21] LABS: ABG ALLEN TEST POS; ARTERIAL BLOOD GAS HCO3 29.4 mmol/L (21-28); ARTERIAL BLOOD GAS HEMOGLOBIN 9.2 g/dL (11.7-17.4); ARTERIAL BLOOD GAS O2 SAT 84.9 % (95-98); ARTERIAL BLOOD GAS PCO2 44 mm/Hg (35-45); ARTERIAL BLOOD GAS PH 7.45 (7.35-7.45); ARTERIAL BLOOD GAS PO2 50 mm/Hg (80-100)
[2018-08-31 12:23] LABS: INR 1.3; PROTHROMBIN TIME 14.1 SECONDS (9.7-12.2)
[2018-08-31 12:26] LABS: ALB/GLOB RATIO 1.4 (1.0-2.1); ALBUMIN 4.2 g/dL (3.5-5.0); ALT/SGPT 16 U/L (21-72); AST/SGOT 19 U/L (17-59); BLOOD UREA NITROGEN 6 mg/dL (9-20); CALCIUM 9.3 mg/dl (8.6-10.4); GFR NON-AFRICAN AMERICAN > 60
--- NOTE | 2018-08-31 13:05 | C.PDOC ---
History Of Present Illness 68 year old male with past medical history of COPD presents to the ED for evaluation of midsternal chest pain associated with shortness of breath that started today. The patient reports the shortness of breath has worsened over the last few days. In the ED the patient is also noted to have rashes to the lower extremities. Denies fever, chills, nausea, vomiting, and any other associated symptoms. . Shx: Reverse colostomy. Chief Complaint (Nursing): Respiratory Distress History Per: Patient History/Exam Limitations: no limitations Onset/Duration Of Symptoms: Hrs Current Symptoms Are (Timing): Still Present Associated Symptoms: Other (shortness of breath. ) Recent travel outside of the [place]: No Past Medical History Reviewed: Historical Data, Nursing Documentation, Vital Signs Vital Signs: Last Vital Signs Temp 97.8 F 08/31/18 11:26 Pulse 94 H 08/31/18 12:35 Resp 18 08/31/18 12:35 BP 125/76 08/31/18 12:35 Pulse Ox 97 08/31/18 12:35 - Medical History PMH: Anemia, Anxiety, Arthritis, Asthma, Bronchitis, Cardia Arrhythmia (SVT), CHF, COPD, Diabetes, Emphysema, HTN, Hypercholesterolemia, Kidney Stones, Pneumonia, Chronic Kidney Disease, Sleep Apnea (ON DALIRESP) Denies: Fractures, Gastritis Surgical History: Endoscopy - [facility] Procedures ASSISTANCE WITH RESPIRATORY VENTILATION, 24-96 HRS, CPAP (04/01/18) ASSISTANCE WITH RESPIRATORY VENTILATION, <24 HRS, CPAP (11/14/17) ASSISTANCE WITH RESPIRATORY VENTILATION, >96 HRS, CPAP (04/26/18) BYPASS ILEUM TO CUTANEOUS, OPEN APPROACH (04/26/18) CONTINUOUS INVASIVE MECHANICAL VENTILATION <96 CONSEC HRS (11/29/14) DILATION OF RIGHT URETER WITH INTRALUMINAL DEVICE, ENDO (03/20/17) DRAINAGE OF BLADDER WITH DRAINAGE DEVICE, VIA OPENING (12/04/17) DRAINAGE OF RECTUM, PERCUTANEOUS APPROACH (12/04/17) EXCISION OF ILEUM, OPEN APPROACH (04/26/18) EXCISION OF SIGMOID COLON, ENDO, DIAGN (03/20/17) EXCISION OF STOMACH, ENDO, DIAGN (03/20/17) EXCISION OF TRANSVERSE COLON, ENDO, DIAGN (03/20/17) INFLUENZA VACCINATION (06/02/14) INSERT ENDOTRACHEAL TUBE (11/29/14) INSERTION OF INFUSION DEV INTO SUP VENA CAVA, PERC APPROACH (01/26/18) INSERTION OF INTRALUM DEV INTO INF VENA CAVA, PERC APPROACH (03/06/18) LARYGNOSCOPY AND OTH TRACHEOSCOPY (04/18/15) MEASURE OF CARDIAC SAMPL & PRESSURE, L HEART, PERC APPROACH (12/01/15) NON-INVASIVE MECHANICAL VENTILATION (04/18/15) RESECTION OF APPENDIX, OPEN APPROACH (04/26/18) RESECTION OF SIGMOID COLON, OPEN APPROACH (03/20/17) RESPIRATORY VENTILATION, GREATER THAN 96 CONSECUTIVE HOURS (03/20/17) Family History: States: Unknown Family Hx - Social History Hx Tobacco Use: Yes (8 years ppd smoker. quit 1.5 years ago) Hx Alcohol Use: No Hx Substance Use: No - Immunization History Hx Tetanus Toxoid Vaccination: No Hx Influenza Vaccination: Yes (2016) Hx Pneumococcal Vaccination: Yes Review Of Systems Except As Marked, All Systems Reviewed And Found Negative. Constitutional: Negative for: Fever, Chills Cardiovascular: Positive for: Chest Pain (midsternal. ) Respiratory: Positive for: Shortness of Breath (secondary to chest pain. ) Gastrointestinal: Negative for: Nausea, Vomiting Physical Exam - Physical Exam Appears: Well, Non-toxic, No Acute Distress Skin: Warm, Dry, Other (papular rash to bilateral lower extremities.) Head: Atraumatic, Normacephalic Eye(s): bilateral: Normal Inspection Oral Mucosa: Moist Neck: Normal ROM, Supple Chest: Symmetrical Cardiovascular: Rhythm Regular, No Murmur Respiratory: No Rales, No Rhonchi, No Wheezing, Other (dyspnea.) Gastrointestinal/Abdominal: Normal Exam, Soft, No Tenderness Extremity: Normal ROM (x4), No Tenderness, No Deformity, Swelling (to the ankles bilaterally. ) Pulses: Left Femoral: Normal, Right Femoral: Normal Neurological/Psych: Oriented x3, Normal Speech, Normal Cognition Gait: Steady ED Course And Treatment - Laboratory Results Result Diagrams: 08/31/18 12:08 08/31/18 12:08 Lab Results: Puncture Site Rr 08/31/18 12:10 pCO2 44 mm/Hg (35-45) 08/31/18 12:10 pO2 50 mm/Hg (80-100) L 08/31/18 12:10 HCO3 29.4 mmol/L (21-28) H 08/31/18 12:10 ABG pH 7.45 (7.35-7.45) 08/31/18 12:10 ABG Total CO2 32.0 mmol/L (22-28) H 08/31/18 12:10 ABG O2 Saturation 84.9 % (95-98) L 08/31/18 12:10 ABG Base Excess 6.0 mmol/L (-2.0-3.0) H 08/31/18 12:10 ABG Hemoglobin 9.2 g/dL (11.7-17.4) L 08/31/18 12:10 ABG Carboxyhemoglobin 0 % (0.5-1.5) L 08/31/18 12:10 POC ABG HHb (Measured) 15.1 % (0.0-5.0) H 08/31/18 12:10 ABG Methemoglobin 0.0 % (0.0-3.0) 08/31/18 12:10 Jesus Test Pos 08/31/18 12:10 Hgb O2 Saturation 84.9 % (95.0-98.0) L 08/31/18 12:10 Liter Flow 3.0 08/31/18 12:10 PT 14.1 SECONDS (9.7-12.2) H 08/31/18 12:08 INR 1.3 08/31/18 12:08 APTT 36 SECONDS (21-34) H 08/31/18 12:08 Troponin I < 0.0120 ng/mL (0.00-0.120) 08/31/18 12:08 NT-Pro-B Natriuret Pep 39.0 pg/mL (0-900) 08/31/18 12:08 Total Bilirubin 0.3 mg/dL (0.2-1.3) 08/31/18 12:08 AST 19 U/L (17-59) 08/31/18 12:08 ALT 16 U/L (21-72) L D 08/31/18 12:08 Alkaline Phosphatase 129 U/L (38-126) H 08/31/18 12:08 Total Protein 7.1 g/dL (6.3-8.3) 08/31/18 12:08 Albumin 4.2 g/dL (3.5-5.0) 08/31/18 12:08 Globulin 2.9 gm/dL (2.2-3.9) 08/31/18 12:08 Albumin/Globulin Ratio 1.4 (1.0-2.1) 08/31/18 12:08 ECG Rhythm: Sinus Rhythm Interpretation Of ECG: no ST elevation. QT normal. Rate From EC O2 Sat by Pulse Oximetry: 97 (RA) Pulse Ox Interpretation: Normal - Radiology CXR: Interpreted by Me, Viewed By Me CXR Interpretation: No: Infiltrates, Pnemothorax Medical Decision Making Medical Decision Making: Initial plan: -Blood sent. -EKG -CXR -O2 via nasal cannula Disposition Discussed With : Hal Garcia Counseled Patient/Family Regarding: Studies Performed, Diagnosis - Disposition Disposition: HOSPITALIZED Disposition Time: 13:24 Condition: GUARDED Forms: [facility] ([place]) - Clinical Impression Clinical Impression: COPD exacerbation, Chest pain - Scribe Statement The provider has reviewed the documentation as recorded by the Scribe (Najma Ricketts) All medical record entries made by the Scribe were at my direction and personally dictated by me. I have reviewed the chart and agree that the record accurately reflects my personal performance of the history, physical exam, medical decision making, and the department course for this patient. I have also personally directed, reviewed, and agree with the discharge instructions and disposition.
[2018-08-31] MEDS ORDERED: Albuterol-Ipratrop 3 mg / 0.5 (3 ml) UD INH STA (14:10)
--- NOTE | 2018-08-31 16:49 | RAD ---
Date of service: 08/31/2018 HISTORY: chest pain COMPARISON: Comparison chest 05/14/2018 FINDINGS: LUNGS: Minimal left basilar atelectasis PLEURA: No significant pleural effusion identified, no pneumothorax apparent. CARDIOVASCULAR: Suspect minimal aortic atherosclerotic calcification present. Heart size borderline/mildly enlarged OSSEOUS STRUCTURES: No significant abnormalities. VISUALIZED UPPER ABDOMEN: Normal. OTHER FINDINGS: None. IMPRESSION: Minimal left basilar atelectasis
[2018-08-31] MEDS: guaiFENesin 100 mg/5 ml Syrup UD PO SCH ×2 (18:23→22:21)
[2018-08-31] MEDS: Oxycodone/Acetaminophen 5/325 mg Tab PO SCH ×2 (18:23→22:20)
[2018-08-31] MEDS: (Novolin R) Insulin Human Regular 100 units/ml vial SC SCH ×2 (18:24→22:20)
[2018-08-31 20:55] LABS: CK-MB 1.89 ng/mL (0.0-3.38)
--- NOTE | 2018-08-31 21:02 | CP.PCM.HP ---
Present on Admission - Present on Admission Any Indicators Present on Admission: Yes History of DVT/PE: Yes Past Patient History - Infectious Disease Hx of Infectious Diseases: None - Past Medical History & Family History Past Medical History?: Yes - Past Social History Smoking Status: Former Smoker - CARDIAC Hx Cardia Arrhythmia: Yes (SVT) Hx Congestive Heart Failure: Yes Hx Hypercholesterolemia: Yes Hx Hypertension: Yes - PULMONARY Hx Asthma: Yes Hx Bronchitis: Yes Hx Chronic Obstructive Pulmonary Disease (COPD): Yes Hx Emphysema: Yes Hx Pneumonia: Yes Hx Sleep Apnea: Yes (ON DALIRESP) - NEUROLOGICAL Hx Neurological Disorder: No HX Cerebrovascular Accident: No - HEENT Hx HEENT Problems: Yes Hx Cataracts: Yes - RENAL Hx Chronic Kidney Disease: Yes Hx Kidney Stones: Yes - ENDOCRINE/METABOLIC Hx Endocrine Disorders: Yes Hx Diabetes Mellitus Type 2: Yes - HEMATOLOGICAL/ONCOLOGICAL Hx Anemia: Yes - INTEGUMENTARY Hx Dermatological Problems: Yes (SEE COMMENT) Other/Comment: Scattered ecchymosis on both arms. - MUSCULOSKELETAL/RHEUMATOLOGICAL Hx Arthritis: Yes Hx Fractures: No - GASTROINTESTINAL Hx Gastritis: No - PSYCHIATRIC Hx Anxiety: Yes Hx Substance Use: No - SURGICAL HISTORY Hx Surgeries: Yes (SEE COMMENT) Hx Cataract Extraction: Yes (left eye, right eye) Hx Cardiac Catheterization: Yes (11/2015) Hx Eye Surgery: Yes Hx Pulmonary Surgery: Yes Other/Comment: colon resection with right ileostomy - ANESTHESIA Hx Anesthesia: Yes Hx Anesthesia Reactions: No Hx Malignant Hyperthermia: No Meds Allergies/Adverse Reactions: Allergies Allergy/AdvReac Type Severity Reaction Status Date / Time acetaminophen [From Tylenol] Allergy RASH Verified 08/31/18 11:33 FISH Allergy SWELLING Verified 08/31/18 11:33 shrimp Allergy SHORTNESS Verified 08/31/18 11:33 OF BREATH IV dye Allergy Severe ANAPHYLAXIS Uncoded 04/25/18 17:39 Results - Vital Signs Recent Vital Signs: Last Vital Signs Temp 98.2 F 08/31/18 16:32 Pulse 110 H 08/31/18 16:32 Resp 20 08/31/18 16:32 BP 113/65 08/31/18 16:32 Pulse Ox 98 08/31/18 16:32 - Labs Result Diagrams: 08/31/18 12:08 08/31/18 12:08 Labs: Laboratory Results - last 24 hr 08/31/18 08/31/18 08/31/18 12:08 12:08 12:08 WBC 7.0 RBC 4.42 Hgb 9.8 L Hct 30.3 L MCV 68.4 L D MCH 22.1 L MCHC 32.3 L RDW 16.1 H Plt Count 352 D MPV 7.8 Neut % (Auto) 73.8 Lymph % (Auto) 13.9 L [place] % (Auto) 8.0 Eos % (Auto) 2.9 Baso % (Auto) 1.4 Neut # (Auto) 5.2 Lymph # (Auto) 1.0 [place] # (Auto) 0.6 Eos # (Auto) 0.2 Baso # (Auto) 0.1 PT 14.1 H INR 1.3 APTT 36 H Puncture Site pCO2 pO2 HCO3 ABG pH ABG Total CO2 ABG O2 Saturation ABG Base Excess ABG Hemoglobin ABG Carboxyhemoglobin POC ABG HHb (Measured) ABG Methemoglobin Jesus Test Hgb O2 Saturation Liter Flow Sodium 136 Potassium 3.3 L Chloride 97 L Carbon Dioxide 31 H Anion Gap 11 BUN 6 L Creatinine 0.6 L Est GFR ( Amer) > 60 Est GFR (Non-Af Amer) > 60 POC Glucose (mg/dL) Random Glucose 219 H D Calcium 9.3 Total Bilirubin 0.3 AST 19 ALT 16 L D Alkaline Phosphatase 129 H Total Creatine Kinase CK-MB (Mass) Troponin I < 0.0120 NT-Pro-B Natriuret Pep 39.0 Total Protein 7.1 Albumin 4.2 Globulin 2.9 Albumin/Globulin Ratio 1.4 08/31/18 08/31/18 08/31/18 12:10 16:14 20:27 WBC RBC Hgb Hct MCV MCH MCHC RDW Plt Count MPV Neut % (Auto) Lymph % (Auto) [place] % (Auto) Eos % (Auto) Baso % (Auto) Neut # (Auto) Lymph # (Auto) [place] # (Auto) Eos # (Auto) Baso # (Auto) PT INR APTT Puncture Site Rr pCO2 44 pO2 50 L HCO3 29.4 H ABG pH 7.45 ABG Total CO2 32.0 H ABG O2 Saturation 84.9 L ABG Base Excess 6.0 H ABG Hemoglobin 9.2 L ABG Carboxyhemoglobin 0 L POC ABG HHb (Measured) 15.1 H ABG Methemoglobin 0.0 Jesus Test Pos Hgb O2 Saturation 84.9 L Liter Flow 3.0 Sodium Potassium Chloride Carbon Dioxide Anion Gap BUN Creatinine Est GFR ( Amer) Est GFR (Non-Af Amer) POC Glucose (mg/dL) 245 H Random Glucose Calcium Total Bilirubin AST ALT Alkaline Phosphatase Total Creatine Kinase 128 CK-MB (Mass) 1.89 Troponin I < 0.0120 NT-Pro-B Natriuret Pep Total Protein Albumin Globulin Albumin/Globulin Ratio
[2018-08-31] MEDS ORDERED: MethylPREDNISolone 40 mg Vial IM SCH (22:00)
[2018-09-01 03:34] LABS: BLOOD UREA NITROGEN 10 mg/dL (9-20); CALCIUM 9.2 mg/dl (8.6-10.4); GFR NON-AFRICAN AMERICAN > 60
[2018-09-01] MEDS: Oxycodone/Acetaminophen 5/325 mg Tab PO SCH ×6 (05:03→21:27)
[2018-09-01] MEDS: Budesonide 0.5 mg/2 ml Inhal Susp UD IH SCH ×2 (07:25→19:30)
[2018-09-01] MEDS: (Novolin R) Insulin Human Regular 100 units/ml vial SC SCH ×4 (07:58→21:35)
[2018-09-01] MEDS ORDERED: Fluticasone-Vilanterol 100/25mcg Diskus INH SCH (08:00)
[2018-09-01] MEDS: Potassium Chloride 10 mEq ER Tab PO SCH (10:02)
[2018-09-01] MEDS: Pantoprazole 40 mg EC Tab PO SCH (10:02)
[2018-09-01] MEDS: MethylPREDNISolone 40 mg Vial IVP SCH ×2 (10:03→21:28)
[2018-09-01] MEDS: guaiFENesin 100 mg/5 ml Syrup UD PO SCH ×4 (10:03→21:27)
--- NOTE | 2018-09-01 12:10 | CP.PCM.CON ---
History of Present Illness - History of Present Illness History of Present Illness: Pulmonary, Covering Dr Nuno The Patient was seen and examined at the bedside, Medical records reviewed, and management issues were discussed and formulated with the house staff. Events reviewed Mr. Herrera is 68 years old male with past medical history of severe COPD with multiple hospitalization for COPD exacerbation in the past who presented to the emergency room yesterday for evaluation of midsternal chest pain associated with worsening shortness of breath Pt admits Shortness of breath got worse over the last few days so he came to ER CXR: Left basilar atelectasis Patient on BIPAP, in no apperent distress + Shortness of Breath, SOB with Excertion he has some shortness of breath and wheezing, but No fever/chills. Denies chest pain at this time PMHx: COPD (Emphysema), Asthma, Bronchitis, arthritis, steroid-induced DM, sleep apnea, colon cancer, Anemia, Anxiety, Arthritis (BACK), Cardia Arrhythmia (SVT), CHF, HTN, Hypercholesterolemia, Kidney Stones, Pneumonia and Chronic Kid aundrea Disease PSH: sigmoid anastamosis, endoscopy 11/07, cataract repair Home Meds: duonebs, 10mg prednisone PO QD, roflumilast, Allergies: acetaminophen, fish, shrimp, IV dye SH: 8 pack-year tobacco habit quit 1.5 years ago, quit alcohol 15 years ago, no drug use Review of Systems - Constitutional Constitutional: absent: Anorexia, Chills, Daytime Sleepiness, Excessive Sweating, Fatigue, Fever, Frequent Falls - Cardiovascular Cardiovascular: absent: Chest Pain, Chest Pain at Rest, Chest Pain with Activity, Claudication, Diaphoresis - Respiratory Respiratory: Cough, Dyspnea, Dyspnea on Exertion, Wheezing. absent: Hemoptysis, Snoring, Stridor - Gastrointestinal Gastrointestinal: absent: Abdominal Pain, Coffee Ground Emesis, Heartburn, Hematemesis Past Patient History - Infectious Disease Hx of Infectious Diseases: None - Past Medical History & Family History Past Medical History?: Yes - Past Social History Smoking Status: Former Smoker - CARDIAC Hx Cardia Arrhythmia: Yes (SVT) Hx Congestive Heart Failure: Yes Hx Hypercholesterolemia: Yes Hx Hypertension: Yes - PULMONARY Hx Asthma: Yes Hx Bronchitis: Yes Hx Chronic Obstructive Pulmonary Disease (COPD): Yes Hx Emphysema: Yes Hx Pneumonia: Yes Hx Sleep Apnea: Yes (ON DALIRESP) - NEUROLOGICAL Hx Neurological Disorder: No HX Cerebrovascular Accident: No - HEENT Hx HEENT Problems: Yes Hx Cataracts: Yes - RENAL Hx Chronic Kidney Disease: Yes Hx Kidney Stones: Yes - ENDOCRINE/METABOLIC Hx Endocrine Disorders: Yes Hx Diabetes Mellitus Type 2: Yes - HEMATOLOGICAL/ONCOLOGICAL Hx Anemia: Yes - INTEGUMENTARY Hx Dermatological Problems: Yes (SEE COMMENT) Other/Comment: Scattered ecchymosis on both arms. - MUSCULOSKELETAL/RHEUMATOLOGICAL Hx Arthritis: Yes Hx Fractures: No - GASTROINTESTINAL Hx Gastritis: No - PSYCHIATRIC Hx Anxiety: Yes Hx Substance Use: No - SURGICAL HISTORY Hx Surgeries: Yes (SEE COMMENT) Hx Cataract Extraction: Yes (left eye, right eye) Hx Cardiac Catheterization: Yes (11/2015) Hx Eye Surgery: Yes Hx Pulmonary Surgery: Yes Other/Comment: colon resection with right ileostomy - ANESTHESIA Hx Anesthesia: Yes Hx Anesthesia Reactions: No Hx Malignant Hyperthermia: No Meds Home Medications: Home Medication List Medication Instructions Recorded Confirmed Type Prednisone 5 mg PO DAILY 30 Days tab.ds.pk 09/06/18 Rx guaiFENesin [Robitussin] 100 mg PO QID 30 Days dose 09/06/18 Rx Ferrous Sulfate [Ferosul] 325 mg PO TID 30 Days tablet 09/07/18 Rx Hydrocortisone [Anusol-Hc] 25 mg RC BID 30 Days sup 09/07/18 Rx Sennosides A and B [Senokot Tab] 8.6 mg PO DAILY 30 Days tab 09/07/18 Rx Allergies/Adverse Reactions: Allergies Allergy/AdvReac Type Severity Reaction Status Date / Time acetaminophen [From Tylenol] Allergy RASH Verified 08/31/18 11:33 FISH Allergy SWELLING Verified 08/31/18 11:33 shrimp Allergy SHORTNESS Verified 08/31/18 11:33 OF BREATH IV dye Allergy Severe ANAPHYLAXIS Uncoded 04/25/18 17:39 - Medications Medications: Current Medications Alprazolam (Xanax) 0.5 mg PO Q12 [facility] Last Admin: 09/01/18 10:02 Dose: 0.5 mg Apixaban (Eliquis) 5 mg PO BID [facility] Last Admin: 09/01/18 10:02 Dose: 5 mg Budesonide (Pulmicort Respules) 0.5 mg IH RQ12 [facility] Last Admin: 09/01/18 07:25 Dose: 0.5 mg Diltiazem HCl (Cardizem) 60 mg PO QID [facility] Last Admin: 09/01/18 10:02 Dose: 60 mg Fluticasone/Vilanterol (Breo Ellipta 100-25 Mcg Inh) 1 puff INH RQ24 [facility] Guaifenesin (Robitussin) 200 mg PO QID [facility] Last Admin: 09/01/18 10:03 Dose: 200 mg Insulin Human Regular (Novolin R) 0 unit SC ACHS [facility]; Protocol Last Admin: 09/01/18 07:58 Dose: 4 units Metformin HCl (Glucophage) 500 mg PO BID [facility] Last Admin: 09/01/18 10:02 Dose: 500 mg Methylprednisolone (Solu-Medrol) 30 mg IVP Q12 [facility] Last Admin: 09/01/18 10:03 Dose: 30 mg Oxycodone/Acetaminophen (Percocet 5/325 Mg Tab) 1 tab PO Q4 [facility] Stop: 09/03/18 16:01 Last Admin: 09/01/18 08:03 Dose: 1 tab Pantoprazole Sodium (Protonix Ec Tab) 40 mg PO DAILY [facility] Last Admin: 09/01/18 10:02 Dose: 40 mg Potassium Chloride (Klor-Con 10) 10 meq PO DAILY [facility] Last Admin: 09/01/18 10:02 Dose: 10 meq Pregabalin (Lyrica) 75 mg PO DAILY [facility] Last Admin: 09/01/18 10:02 Dose: 75 mg Roflumilast (Daliresp) 500 mcg PO DAILY [facility] Last Admin: 09/01/18 10:02 Dose: 500 mcg Physical Exam - Head Exam Head Exam: ATRAUMATIC, NORMAL INSPECTION, NORMOCEPHALIC - Eye Exam Eye Exam: EOMI, Normal appearance Pupil Exam: NORMAL ACCOMODATION, PERRL - Neck Exam Neck exam: Positive for: Normal Inspection. Negative for: Lymphadenopathy, Meningismus, Tenderness - Respiratory Exam Respiratory Exam: Chest Wall Tenderness, Decreased Breath Sounds, Prolonged Expiratory Phase, Rhonchi, Wheezes. absent: Accessory Muscle Use, Clear to Auscultation Bilateral, Rales, Stridor, NORMAL BREATHING PATTERN - Cardiovascular Exam Cardiovascular Exam: REGULAR RHYTHM, RRR, +S1, +S2. absent: Bradycardia, Tachycardia, JVD - GI/Abdominal Exam GI & Abdominal Exam: Normal Bowel Sounds, Soft. absent: Tenderness - Extremities Exam Extremities exam: Positive for: full ROM, normal capillary refill, normal inspection. Negative for: calf tenderness, joint swelling, pedal edema, tenderness Results - Vital Signs Recent Vital Signs: Last Vital Signs Temp 97.7 F 09/01/18 07:20 Pulse 109 H 09/01/18 11:35 Resp 20 09/01/18 07:20 BP 110/69 09/01/18 07:20 Pulse Ox 99 09/01/18 08:42 - Labs Result Diagrams: 09/05/18 07:00 09/06/18 07:27 Labs: Laboratory Results - last 24 hr 08/31/18 08/31/18 08/31/18 12:08 12:08 12:08 WBC 7.0 RBC 4.42 Hgb 9.8 L Hct 30.3 L MCV 68.4 L D MCH 22.1 L MCHC 32.3 L RDW 16.1 H Plt Count 352 D MPV 7.8 Neut % (Auto) 73.8 Lymph % (Auto) 13.9 L [place] % (Auto) 8.0 Eos % (Auto) 2.9 Baso % (Auto) 1.4 Neut # (Auto) 5.2 Lymph # (Auto) 1.0 [place] # (Auto) 0.6 Eos # (Auto) 0.2 Baso # (Auto) 0.1 PT 14.1 H INR 1.3 APTT 36 H D-Dimer, Quantitative Puncture Site pCO2 pO2 HCO3 ABG pH ABG Total CO2 ABG O2 Saturation ABG Base Excess ABG Hemoglobin ABG Carboxyhemoglobin POC ABG HHb (Measured) ABG Methemoglobin Jesus Test Hgb O2 Saturation Liter Flow Sodium 136 Potassium 3.3 L Chloride 97 L Carbon Dioxide 31 H Anion Gap 11 BUN 6 L Creatinine 0.6 L Est GFR ( Amer) > 60 Est GFR (Non-Af Amer) > 60 POC Glucose (mg/dL) Random Glucose 219 H D Calcium 9.3 Total Bilirubin 0.3 AST 19 ALT 16 L D Alkaline Phosphatase 129 H Total Creatine Kinase CK-MB (Mass) Troponin I < 0.0120 NT-Pro-B Natriuret Pep 39.0 Total Protein 7.1 Albumin 4.2 Globulin 2.9 Albumin/Globulin Ratio 1.4 08/31/18 08/31/18 08/31/18 12:10 16:14 20:27 WBC RBC Hgb Hct MCV MCH MCHC RDW Plt Count MPV Neut % (Auto) Lymph % (Auto) [place] % (Auto) Eos % (Auto) Baso % (Auto) Neut # (Auto) Lymph # (Auto) [place] # (Auto) Eos # (Auto) Baso # (Auto) PT INR APTT D-Dimer, Quantitative Puncture Site Rr pCO2 44 pO2 50 L HCO3 29.4 H ABG pH 7.45 ABG Total CO2 32.0 H ABG O2 Saturation 84.9 L ABG Base Excess 6.0 H ABG Hemoglobin 9.2 L ABG Carboxyhemoglobin 0 L POC ABG HHb (Measured) 15.1 H ABG Methemoglobin 0.0 Jesus Test Pos Hgb O2 Saturation 84.9 L Liter Flow 3.0 Sodium Potassium Chloride Carbon Dioxide Anion Gap BUN Creatinine Est GFR ( Amer) Est GFR (Non-Af Amer) POC Glucose (mg/dL) 245 H Random Glucose Calcium Total Bilirubin AST ALT Alkaline Phosphatase Total Creatine Kinase 128 CK-MB (Mass) 1.89 Troponin I < 0.0120 NT-Pro-B Natriuret Pep Total Protein Albumin Globulin Albumin/Globulin Ratio 08/31/18 09/01/18 09/01/18 21:34 03:05 03:05 WBC RBC Hgb Hct MCV MCH MCHC RDW Plt Count MPV Neut % (Auto) Lymph % (Auto) [place] % (Auto) Eos % (Auto) Baso % (Auto) Neut # (Auto) Lymph # (Auto) [place] # (Auto) Eos # (Auto) Baso # (Auto) PT INR APTT D-Dimer, Quantitative 387 H Puncture Site pCO2 pO2 HCO3 ABG pH ABG Total CO2 ABG O2 Saturation ABG Base Excess ABG Hemoglobin ABG Carboxyhemoglobin POC ABG HHb (Measured) ABG Methemoglobin Jesus Test Hgb O2 Saturation Liter Flow Sodium 136 Potassium 4.0 Chloride 99 Carbon Dioxide 29 Anion Gap 11 BUN 10 Creatinine 0.7 L Est GFR ( Amer) > 60 Est GFR (Non-Af Amer) > 60 POC Glucose (mg/dL) 122 H Random Glucose 254 H Calcium 9.2 Total Bilirubin AST ALT Alkaline Phosphatase Total Creatine Kinase CK-MB (Mass) Troponin I NT-Pro-B Natriuret Pep Total Protein Albumin Globulin Albumin/Globulin Ratio 01/20/19 01/20/19 01/20/19 03:05 06:25 11:23 WBC RBC Hgb Hct MCV MCH MCHC RDW Plt Count MPV Neut % (Auto) Lymph % (Auto) [place] % (Auto) Eos % (Auto) Baso % (Auto) Neut # (Auto) Lymph # (Auto) [place] # (Auto) Eos # (Auto) Baso # (Auto) PT INR APTT D-Dimer, Quantitative Puncture Site pCO2 pO2 HCO3 ABG pH ABG Total CO2 ABG O2 Saturation ABG Base Excess ABG Hemoglobin ABG Carboxyhemoglobin POC ABG HHb (Measured) ABG Methemoglobin Jesus Test Hgb O2 Saturation Liter Flow Sodium Potassium Chloride Carbon Dioxide Anion Gap BUN Creatinine Est GFR ( Amer) Est GFR (Non-Af Amer) POC Glucose (mg/dL) 269 H 233 H Random Glucose Calcium Total Bilirubin AST ALT Alkaline Phosphatase Total Creatine Kinase 112 CK-MB (Mass) 1.50 Troponin I < 0.0120 NT-Pro-B Natriuret Pep Total Protein Albumin Globulin Albumin/Globulin Ratio Assessment & Plan (1) Atelectasis of left lung Status: Acute Priority: High (2) Acute and chronic respiratory failure ([id number]-stfbarg) Status: Acute Priority: High (3) COPD (chronic obstructive pulmonary disease) with acute bronchitis Status: Acute Priority: High - Assessment and Plan (Free Text) Assessment: 1. COPD - 08/31/18 CXR: minimal left basilar atelectasis - Saturating 97%, Continue BiPAP as needed and at night - continue Breo Ellipta, Budesonide, Guaifenesin, Roflumilast - taper steroids - duonebs 2. Abdominal pain with blood per rectum - 09/04/18 blood per rectum with bowel movement x1 episode - H/H stable, ASA and Eliquis on hold - recommendations as per Surgery and GI
--- NOTE | 2018-09-01 20:10 | CP.PCM.PN ---
Subjective - Date & Time of Evaluation Date of Evaluation: 09/01/18 Time of Evaluation: 07:42 - Subjective Subjective: dictated Objective - Vital Signs/Intake and Output Vital Signs (last 24 hours): Temp Pulse Resp BP Pulse Ox 97.4 F L 87 20 118/67 98 09/01/18 15:00 09/01/18 16:30 09/01/18 15:00 09/01/18 15:00 09/01/18 15:00 - Medications Medications: Current Medications Alprazolam (Xanax) 0.5 mg PO Q12 [facility] Last Admin: 09/01/18 10:02 Dose: 0.5 mg Apixaban (Eliquis) 5 mg PO BID [facility] Last Admin: 09/01/18 19:07 Dose: 5 mg Budesonide (Pulmicort Respules) 0.5 mg IH RQ12 [facility] Last Admin: 09/01/18 07:25 Dose: 0.5 mg Diltiazem HCl (Cardizem) 60 mg PO QID [facility] Last Admin: 09/01/18 19:07 Dose: 60 mg Fluticasone/Vilanterol (Breo Ellipta 100-25 Mcg Inh) 1 puff INH RQ24 [facility] Guaifenesin (Robitussin) 200 mg PO QID [facility] Last Admin: 09/01/18 19:11 Dose: 200 mg Influenza Virus Vaccine (Flucelvax Quad [id number] Syr) 60 mcg IM .ONCE ONE Stop: 09/02/18 10:01 Insulin Human Regular (Novolin R) 0 unit SC [facility]; Protocol Last Admin: 09/01/18 19:07 Dose: 3 units Metformin HCl (Glucophage) 500 mg PO BID [facility] Last Admin: 09/01/18 19:07 Dose: 500 mg Methylprednisolone (Solu-Medrol) 30 mg IVP Q12 [facility] Last Admin: 09/01/18 10:03 Dose: 30 mg Oxycodone/Acetaminophen (Percocet 5/325 Mg Tab) 1 tab PO Q4 [facility] Stop: 09/03/18 16:01 Last Admin: 09/01/18 19:07 Dose: 1 tab Pantoprazole Sodium (Protonix Ec Tab) 40 mg PO DAILY [facility] Last Admin: 09/01/18 10:02 Dose: 40 mg Potassium Chloride (Klor-Con 10) 10 meq PO DAILY [facility] Last Admin: 09/01/18 10:02 Dose: 10 meq Pregabalin (Lyrica) 75 mg PO DAILY [facility] Last Admin: 09/01/18 10:02 Dose: 75 mg Roflumilast (Daliresp) 500 mcg PO DAILY [facility] Last Admin: 09/01/18 10:02 Dose: 500 mcg - Labs Labs: 08/31/18 12:08 09/01/18 03:05 PT 14.1 SECONDS (9.7-12.2) H 08/31/18 12:08 INR 1.3 08/31/18 12:08 APTT 36 SECONDS (21-34) H 08/31/18 12:08
[2018-09-02] MEDS: Oxycodone/Acetaminophen 5/325 mg Tab PO SCH ×4 (00:15→12:46)
--- NOTE | 2018-09-02 00:39 | PN ---
DATE: 09/01/2018 SUBJECTIVE: The patient's cardiac enzymes x3 are negative. Less cough. Less shortness of breath. Less wheezing. He is on BiPAP. PHYSICAL EXAMINATION: VITAL SIGNS: Blood pressure 113/67, pulse 88, respiratory rate 20, temperature 97.4. LUNGS: Bilateral scattered rhonchi. CARDIOVASCULAR SYSTEM: S1 and S2, regular. ABDOMEN: Soft. ASSESSMENT: 1. Exacerbation of chronic obstructive pulmonary disease. 2. Ruled out acute myocardial infarction. 3. Steroid-induced diabetes. PLAN: Continue current medications. Pulmonary followup. Monitor patient. Hal Garcia MD
--- NOTE | 2018-09-02 01:42 | CON ---
DATE: 09/01/2018 CARDIOLOGY CONSULTATION REASON FOR CONSULTATION: Chest pain. HISTORY OF PRESENT ILLNESS: The patient is a 68-year-old male who has history of advanced chronic obstructive lung disease, on nasal O2 at home and also BiPAP and has a history of rectal CA, status post resection with ileostomy, and after multiple ileostomy revisions, the patient had his ileostomy reversed successfully finally. The patient has a history of DVT with presumptive PE and was placed on Eliquis therapy. The patient presented because of chest discomfort as well as shortness of breath and palpitation. The patient had a cardiac catheterization in 11/2015 which revealed unremarkable coronary circulation and normal left ventricular systolic function at that time. SOCIAL HISTORY: This patient is a former smoker. He is , lives with his . MEDICATIONS: Cardizem 60 mg four times a day, Eliquis 5 mg twice a day, metformin 500 mg twice a day, Klor-Con 10 mEq once a day, Lyrica 75 mg once a day, Robitussin 200 mg four times a day, Protonix 40 g p.o. once a day, Xanax 0.5 mg once a day, Solu-Medrol 30 mg intravenously every 12 hours. REVIEW OF SYSTEMS: The patient has abdominal discomfort and at times distention. He also suffers from anxiety. PAST MEDICAL HISTORY: Hypertension, diabetes mellitus, chronic obstructive lung disease, DVT and pulmonary embolus, rectal CA, status post resection, lumbar spine fracture of L2 in the summer of last year following a fall. PHYSICAL EXAMINATION: GENERAL: The patient is an elderly male who does not appear to be in acute distress. VITAL SIGNS: Blood pressure 118/67, heart 88, temperature 97.4, respirations 20. HEENT: Pale conjunctivae. CHEST: Bilateral rhonchi. HEART: S1, S2 regular. ABDOMEN: Soft. EXTREMITIES: No edema. LABORATORY DATA: CBC: Hemoglobin and hematocrit 9.8 and 30.3. White count and platelet count are within normal limit. SMA-7: Within normal limits except for glucose 264 and creatinine 0.7. Two sets of troponins are negative. INR is 1.3. D-dimer is 387. EKG on admission revealed normal sinus rhythm at the rate of 99. Echocardiographic study in 02/2018 revealed normal left ventricular size and ejection fraction and no regional wall motion abnormality. Chest x-ray was unremarkable except for COPD and prominent bronchovascular markings. ASSESSMENT 1. Chest pain, myocardial infarction is ruled out. 2. History of deep venous thrombosis and pulmonary embolism last year. 3. History of rectal cancer, status post resection and ileostomy followed by revision of ileostomy. 4. Advanced chronic obstructive lung disease. 5. Anxiety disorder. 6. History of lumbar spine fracture following a fall. 7. Physiologic sinus tachycardia. CONDITIONS: Continue Cardizem 60 mg four times a day, Eliquis 5 mg twice a day, Klor-Con 10 mEq once a day, Solu-Medrol 30 mg intravenously every 12 hours. Repeat 12-lead EKG and obtain venous Doppler of the lower extremities. Mukesh Correia MD
[2018-09-02] MEDS: Budesonide 0.5 mg/2 ml Inhal Susp UD IH SCH ×2 (07:31→20:16)
[2018-09-02] MEDS: (Novolin R) Insulin Human Regular 100 units/ml vial SC SCH ×4 (07:57→22:15)
--- NOTE | 2018-09-02 08:50 | HP ---
CHIEF COMPLAINT: Chest pain. HISTORY OF PRESENT ILLNESS: This is a 68-year-old male well known to me with history of COPD, with history of multiple hospitalizations. He is on home oxygen, home nebulizer and BiPAP at home. He has history of generalized anxiety, allergic rhinitis, steroid-induced diabetes, colon cancer, status post colon resection who is compliant with the diet, medication and followup. He came in because of chest pain, chest congestion, midsternal chest pain, dull, non-radiating, associated with shortness of breath, all this started this morning. According to the patient, his shortness of breath was getting worse over last few days until this morning, shortness of breath got worse and he developed chest pain. The patient also has rash in the lower extremities. He has cough, congestion, large sputum production, nasal congestion, rhinorrhea, body aches, tiredness, chest pain, and he denied any fever. He denied any nausea, vomiting or diarrhea. He denied any chills. He has sneezing and itchy eyes. He denied any history of polyuria, polydipsia or polyphagia. He denied any history of hematuria or pyuria. He denied any history of trauma, fall or loss of consciousness. The patient has chronic back pain, hip pain and leg pain. CURRENT MEDICATIONS: At home, he is on Percocet, metformin, Robitussin, Cardizem, Carafate, Daliresp, Lyrica, prednisone, K-Dur, Protonix, multivitamins, Lidoderm, Advair, Pulmicort, Eliquis, Xanax, and Proventil. SOCIAL HISTORY: Ex-smoker, non-ETOH user, PHYSICAL EXAMINATION: GENERAL: This is an elderly male, in mild distress with congestion. VITAL SIGNS: Blood pressure 113/65, pulse 110, respiratory rate 20, and temperature 98.2. SKIN: Mild turgor. He has erythematous rashes on the legs, which are round, small, pink and macular. HEENT: Atraumatic, normocephalic. Negative pallor. Negative jaundice. Extraocular movements are intact. NECK: Supple, using accessory muscles. CHEST: Chest wall bilaterally symmetrical extension. Barrel-shaped chest. LUNGS: Bilateral inspiratory and expiratory rhonchi. Decreased air entry. CVS: PMI in the fifth intercostal space. S1 and S2 regular. Tachycardiac. ABDOMEN: Soft. Nontender. Bowel sounds are positive. RECTAL: Enlarged prostate. EXTREMITIES: No clubbing or cyanosis, +1 pitting edema. CENTRAL NERVOUS SYSTEM: Awake, alert, and oriented x3. Cranial nerves II through XII are normal. Power 5/5 x4. Plantars are downgoing. ASSESSMENT: 1. Acute exacerbation of chronic obstructive pulmonary disease. 2. Chest pain, rule out myocardial infarction. 3. Steroid-induced diabetes. 4. Allergic rhinitis. 5. Colon cancer. PLAN: Admit, detailed orders, the patient seen and examined. Hal Garcia MD
[2018-09-02] MEDS: MethylPREDNISolone 40 mg Vial IVP SCH ×2 (09:29→22:06)
[2018-09-02] MEDS: Potassium Chloride 10 mEq ER Tab PO SCH (09:30)
[2018-09-02] MEDS: Pantoprazole 40 mg EC Tab PO SCH (09:30)
[2018-09-02] MEDS: guaiFENesin 100 mg/5 ml Syrup UD PO SCH ×4 (09:31→22:05)
[2018-09-02] MEDS ORDERED: Influenza Vaccine 60 mcg/0.5 mL SYR (4YR UP) IM ONE (10:00)
--- NOTE | 2018-09-02 11:41 | VASCLAB ---
Date of service: 09/02/2018 PROCEDURE: Lower Extremity Venous Duplex Exam. HISTORY: r/o dvt PRIORS: 03/06/2018, abnormal. TECHNIQUE: Bilateral common femoral, femoral, popliteal and posterior tibial, peroneal and great saphenous veins were evaluated. Flow was assessed with color Doppler, compressibility, assessment of phasic flow and augmentation response. Report prepared by DAMIAN Nicolas FINDINGS: RIGHT: 1. Common Femoral Vein: 1.1. Compressibility - Fully compressible: Thrombus - None : Flow - Phasic: Augmentation -Normal: Reflux - None. 2. Femoral Vein: 2.1. Compressibility - Fully compressible: Thrombus - None : Flow - Phasic: Augmentation -Normal: Reflux - None. 3. Popliteal Vein: 3.1. Compressibility - Fully compressible: Thrombus - None : Flow - Phasic: Augmentation -Normal: Reflux - None. 4. Posterior Tibial Vein: 4.1. Compressibility - Fully compressible: Thrombus - None: Flow - Phasic: Augmentation -Normal: Reflux - None. 5. Peroneal Vein: 5.1. Compressibility - Fully compressible: Thrombus - None: Flow - Phasic: Augmentation -Normal: Reflux - None. 6. Great Saphenous Vein: 6.1. Compressibility - Fully compressible: Thrombus - None: Flow - Phasic: Augmentation - Normal: Reflux - None. LEFT: 1. Common Femoral Vein: 1.1. Compressibility - Fully compressible: Thrombus - None: Flow - Phasic: Augmentation -Normal: Reflux - None. 2. Femoral Vein: 2.1. Compressibility - Fully compressible: Thrombus - None: Flow - Phasic: Augmentation -Normal: Reflux - None. 3. Popliteal Vein: 3.1. Compressibility - Fully compressible: Thrombus - None : Flow - Phasic: Augmentation -Normal: Reflux - None. 4. Posterior Tibial Vein: 4.1. Compressibility - Fully compressible: Thrombus - None: Flow - Phasic: Augmentation -Normal: Reflux - None. 5. Peroneal Vein: 5.1. Compressibility - Fully compressible: Thrombus - None: Flow - Phasic: Augmentation -Normal: Reflux - None. 6. Great Saphenous Vein: 6.1. Compressibility - Fully compressible: Thrombus - None: Flow - Phasic: Augmentation - Normal: Reflux - None. OTHER FINDINGS: Right: None significant. Left: None significant. IMPRESSION: Right: No evidence of deep or superficial vein thrombosis of the right lower extremity. Normal valve function noted of the right side. Left: No evidence of deep or superficial vein thrombosis of the left lower extremity. Normal valve function noted of the left side.
--- NOTE | 2018-09-02 11:53 | CARD ---
APPROVED REPORT Date of service: 08/31/2018 EKG Measurement Heart [id number] 122P [id number] <Conclusion> Normal sinus rhythm Normal ECG
[2018-09-02] MEDS ORDERED: Oxycodone/Acetaminophen 5/325 mg Tab PO PRN (13:12)
[2018-09-02] MEDS: Albuterol-Ipratrop 3 mg / 0.5 (3 ml) UD INH SCH ×2 (16:00→20:16)
--- NOTE | 2018-09-02 17:23 | CP.PCM.PN ---
Subjective - Date & Time of Evaluation Date of Evaluation: 09/02/18 Time of Evaluation: 11:00 - Subjective Subjective: 68 year old male with PMH of COPD, steroid-induced diabetes, colon cancer s/p resection. He presents with progressively worsening SOB over the last few days with associated chest pain that developed the day before. He is on home O2 using nebulizer and BiPAP. Patient currently resting comfortably in bed on 3L NC. Denies denies SOB and cough. PMH: COPD, steroid-induced diabetes, colon cancer s/p resection PSH: colon resection, colostomy and colostomy reversal All: acetaminophen, fish, shrimp, IV dye SocH: 1 ppd smoker for 8 years, quit 1.5 years ago; denies alcohol and illicit drug use Exam: Gen - no acute distress Card - RRR, no murmurs, rubs or gallops Lungs - normal breathing pattern, diminished breath sounds bilaterally, no wheezes, rales or rhonchi GI - abdomen soft, nontender, no rebound, guarding or rigidity A&P: 1. COPD exacerbation - 08/31/18 CXR: minimal left basilar atelectasis - continue Breo Ellipta, Bedesonide, Guaifenesin, Roflumilast - continue Solu-Medrol 30 mg IVP Q12 - continue to monitor Objective - Vital Signs/Intake and Output Vital Signs (last 24 hours): Temp Pulse Resp BP Pulse Ox 98.2 F 76 20 121/64 97 09/02/18 15:50 09/02/18 15:50 09/02/18 15:50 09/02/18 15:50 09/02/18 15:50 Intake and Output: 09/02/18 09/02/18 06:59 18:59 Intake Total 300 Balance 300 - Medications Medications: Current Medications Albuterol/Ipratropium (Duoneb 3 Mg/0.5 Mg (3 Ml) Ud) 3 ml INH RQ6 [facility] Alprazolam (Xanax) 0.5 mg PO Q12 [facility] Last Admin: 09/02/18 09:35 Dose: 0.5 mg Apixaban (Eliquis) 5 mg PO BID [facility] Last Admin: 09/02/18 09:30 Dose: 5 mg Aspirin (Aspirin Chewable) 81 mg PO DAILY [facility] Last Admin: 09/02/18 14:17 Dose: 81 mg Budesonide (Pulmicort Respules) 0.5 mg IH RQ12 [facility] Last Admin: 09/02/18 07:31 Dose: 0.5 mg Diltiazem HCl (Cardizem) 60 mg PO QID [facility] Last Admin: 09/02/18 13:02 Dose: 60 mg Famotidine (Pepcid) 20 mg PO BID [facility] Fluticasone/Vilanterol (Breo Ellipta 100-25 Mcg Inh) 1 puff INH RQ24 [facility] Guaifenesin (Robitussin) 200 mg PO QID [facility] Last Admin: 09/02/18 13:02 Dose: 200 mg Insulin Human Regular (Novolin R) 0 unit SC [facility]; Protocol Last Admin: 09/02/18 12:21 Dose: 2 units Metformin HCl (Glucophage) 500 mg PO BID [facility] Last Admin: 09/02/18 09:30 Dose: 500 mg Methylprednisolone (Solu-Medrol) 30 mg IVP Q12 [facility] Last Admin: 09/02/18 09:29 Dose: 30 mg Oxycodone/Acetaminophen (Percocet 5/325 Mg Tab) 1 tab PO Q4 PRN PRN Reason: Pain, moderate (4-7) Stop: 09/03/18 16:01 Pantoprazole Sodium (Protonix Ec Tab) 40 mg PO DAILY [facility] Last Admin: 09/02/18 09:30 Dose: 40 mg Potassium Chloride (Klor-Con 10) 10 meq PO DAILY [facility] Last Admin: 09/02/18 09:30 Dose: 10 meq Pregabalin (Lyrica) 75 mg PO DAILY [facility] Last Admin: 09/02/18 09:30 Dose: 75 mg Roflumilast (Daliresp) 500 mcg PO DAILY [facility] Last Admin: 09/02/18 09:31 Dose: 500 mcg - Labs Labs: 08/31/18 12:08 09/01/18 03:05 PT 14.1 SECONDS (9.7-12.2) H 08/31/18 12:08 INR 1.3 08/31/18 12:08 APTT 36 SECONDS (21-34) H 08/31/18 12:08
--- NOTE | 2018-09-02 18:14 | PN ---
DATE: 09/02/2018 SUBJECTIVE: The patient denies any chest pain. The shortness of breath has improved. PHYSICAL EXAMINATION VITAL SIGNS: Blood pressure 114/60, heart rate 75, temperature 97.5, respirations 20. HEENT: Pale conjunctivae. CHEST: Minimal rhonchi. HEART: S1 and S2 regular. ABDOMEN: Soft. EXTREMITIES: No edema. No calf tenderness. LABORATORY DATA: Blood glucose level is 253 and 177 respectively. Venous Doppler of the lower extremity, no evidence of DVT. ASSESSMENT: 1. Chest pain, myocardial infarction is ruled out. 2. Chronic obstructive lung disease. 3. History of deep venous thrombosis and pulmonary embolism. 4. History of lumbar spine compression fracture. 5. Uncontrolled diabetes mellitus. RECOMMENDATIONS: Continue Cardizem at 60 mg four times daily, Eliquis 5 mg twice a day, Klor-Con 10 mEq once a day, Xanax 0.5 mg twice a day. Start aspirin 81 mg once a day and Pepcid 20 mg orally twice a day. Conservative medical approach is recommended. Mukesh Correia MD
--- NOTE | 2018-09-02 20:48 | CARD ---
APPROVED REPORT Date of service: 09/01/2018 EKG Measurement Heart [id number] <Conclusion> Normal sinus rhythm Normal ECG
--- NOTE | 2018-09-02 21:28 | CP.PCM.PN ---
Subjective - Date & Time of Evaluation Date of Evaluation: 09/02/18 Time of Evaluation: 10:24 - Subjective Subjective: dictated Objective - Vital Signs/Intake and Output Vital Signs (last 24 hours): Temp Pulse Resp BP Pulse Ox 98.2 F 84 20 121/64 95 09/02/18 15:50 09/02/18 20:17 09/02/18 15:50 09/02/18 15:50 09/02/18 20:17 Intake and Output: 09/02/18 09/03/18 18:59 06:59 Intake Total 300 Balance 300 - Medications Medications: Current Medications Albuterol/Ipratropium (Duoneb 3 Mg/0.5 Mg (3 Ml) Ud) 3 ml INH RQ6 [facility] Last Admin: 09/02/18 20:16 Dose: 3 ml Alprazolam (Xanax) 0.5 mg PO Q12 [facility] Last Admin: 09/02/18 09:35 Dose: 0.5 mg Apixaban (Eliquis) 5 mg PO BID [facility] Last Admin: 09/02/18 17:57 Dose: 5 mg Aspirin (Aspirin Chewable) 81 mg PO DAILY [facility] Last Admin: 09/02/18 14:17 Dose: 81 mg Budesonide (Pulmicort Respules) 0.5 mg IH RQ12 [facility] Last Admin: 09/02/18 20:16 Dose: 0.5 mg Diltiazem HCl (Cardizem) 60 mg PO QID [facility] Last Admin: 09/02/18 17:57 Dose: 60 mg Famotidine (Pepcid) 20 mg PO BID [facility] Last Admin: 09/02/18 18:03 Dose: 20 mg Fluticasone/Vilanterol (Breo Ellipta 100-25 Mcg Inh) 1 puff INH RQ24 [facility] Guaifenesin (Robitussin) 200 mg PO QID [facility] Last Admin: 09/02/18 17:57 Dose: 200 mg Insulin Human Regular (Novolin R) 0 unit SC [facility]; Protocol Last Admin: 09/02/18 17:53 Dose: 4 units Metformin HCl (Glucophage) 500 mg PO BID [facility] Last Admin: 09/02/18 17:56 Dose: 500 mg Methylprednisolone (Solu-Medrol) 30 mg IVP Q12 [facility] Last Admin: 09/02/18 09:29 Dose: 30 mg Oxycodone/Acetaminophen (Percocet 5/325 Mg Tab) 1 tab PO Q4 PRN PRN Reason: Pain, moderate (4-7) Stop: 09/03/18 16:01 Pantoprazole Sodium (Protonix Ec Tab) 40 mg PO DAILY [facility] Last Admin: 09/02/18 09:30 Dose: 40 mg Potassium Chloride (Klor-Con 10) 10 meq PO DAILY [facility] Last Admin: 09/02/18 09:30 Dose: 10 meq Pregabalin (Lyrica) 75 mg PO DAILY [facility] Last Admin: 09/02/18 09:30 Dose: 75 mg Roflumilast (Daliresp) 500 mcg PO DAILY [facility] Last Admin: 09/02/18 09:31 Dose: 500 mcg - Labs Labs: 08/31/18 12:08 09/01/18 03:05 PT 14.1 SECONDS (9.7-12.2) H 08/31/18 12:08 INR 1.3 08/31/18 12:08 APTT 36 SECONDS (21-34) H 08/31/18 12:08
--- NOTE | 2018-09-02 23:51 | PN ---
DATE: 09/02/2018 SUBJECTIVE: The patient is still coughing and wheezing. However, he is less short of breath. He has some sneezing. He gets some back pain. He denies any nausea or vomiting. He is tolerating his diet. No fever. No chills. Sugars are high because of steroid. PHYSICAL EXAMINATION: VITAL SIGNS: Blood pressure 121/64, pulse 76, respiratory rate 20, and temperature 98.2. LUNGS: Bilateral inspiratory and expiratory rhonchi. Decreased air entry. CARDIOVASCULAR EXAM: S1, S2 regular. No heave. No thrill. ABDOMEN: Soft. Nontender. Bowel sounds are positive. ASSESSMENT AND PLAN: 1. Exacerbation of chronic obstructive pulmonary disease. 2. Noncoronary chest pain. 3. Type 2 diabetes. 4. Allergic rhinitis. The patient's venous Doppler was negative. Vitals are stable. He is improving. He will be switched to inpatient. The diagnosis for inpatient is exacerbation of chronic obstructive pulmonary disease. Hal Garcia MD
[2018-09-03] MEDS: Albuterol-Ipratrop 3 mg / 0.5 (3 ml) UD INH SCH ×4 (01:17→19:15)
[2018-09-03] MEDS: Budesonide 0.5 mg/2 ml Inhal Susp UD IH SCH ×2 (07:41→19:15)
[2018-09-03] MEDS: (Novolin R) Insulin Human Regular 100 units/ml vial SC SCH ×4 (07:52→22:00)
[2018-09-03] MEDS: Pantoprazole 40 mg EC Tab PO SCH (09:18)
[2018-09-03] MEDS: Potassium Chloride 10 mEq ER Tab PO SCH (09:18)
[2018-09-03] MEDS: MethylPREDNISolone 40 mg Vial IVP SCH ×2 (09:19→22:02)
[2018-09-03] MEDS: guaiFENesin 100 mg/5 ml Syrup UD PO SCH ×4 (10:13→22:02)
--- NOTE | 2018-09-03 15:05 | CP.PCM.CON ---
History of Present Illness - History of Present Illness History of Present Illness: Surgery Consult: Dr. Nieto Pt is a 68M well known to the surgical service from multiple operations for colon CA with ostomy reversals who has an extensive PMHx of COPD on home O2, BiPAP, home nebulizers, steroid induced DM, hx of DVT/PE on Eliquis & anxiety who presented to on 08/31 for SOB & chest pain. Pt was admitted to the hospital & work up for ACS and recurrent DVT was obtained & negative. Pt complaining of some abdominal discomfort today with BMs so surgery consulted to evaluate. Currently, pt is resting comfortably. States he does not have abdominal pain right now but has some discomfort from time to time when he is constipated. He admits to tolerating regular diet without any nausea/vomiting, admits to regular BMs. Denies fevers/chills, chest pain or SOB. PMHx: as listed PSHx: rectosigmoidectomy w/ileostomy, ileostomy reversal, IVCF placement, PCI w/stents SocialHx: former smoker, denies EtOH/drugs All: tylenol, shrimp, IV contrast Review of Systems - Review of Systems All systems: reviewed and no additional remarkable complaints except (as per HPI) Past Patient History - Infectious Disease Hx of Infectious Diseases: None - Past Medical History & Family History Past Medical History?: Yes - Past Social History Smoking Status: Former Smoker - CARDIAC Hx Cardia Arrhythmia: Yes (SVT) Hx Congestive Heart Failure: Yes Hx Hypercholesterolemia: Yes Hx Hypertension: Yes - PULMONARY Hx Asthma: Yes Hx Bronchitis: Yes Hx Chronic Obstructive Pulmonary Disease (COPD): Yes Hx Emphysema: Yes Hx Pneumonia: Yes Hx Sleep Apnea: Yes (ON DALIRESP) - NEUROLOGICAL Hx Neurological Disorder: No HX Cerebrovascular Accident: No - HEENT Hx HEENT Problems: Yes Hx Cataracts: Yes - RENAL Hx Chronic Kidney Disease: Yes Hx Kidney Stones: Yes - ENDOCRINE/METABOLIC Hx Endocrine Disorders: Yes Hx Diabetes Mellitus Type 2: Yes - HEMATOLOGICAL/ONCOLOGICAL Hx Anemia: Yes - INTEGUMENTARY Hx Dermatological Problems: Yes (SEE COMMENT) Other/Comment: Scattered ecchymosis on both arms. - MUSCULOSKELETAL/RHEUMATOLOGICAL Hx Arthritis: Yes Hx Falls: Yes Hx Fractures: No - GASTROINTESTINAL Hx Gastritis: No - PSYCHIATRIC Hx Anxiety: Yes Hx Substance Use: No - SURGICAL HISTORY Hx Surgeries: Yes (SEE COMMENT) Hx Cataract Extraction: Yes (left eye, right eye) Hx Cardiac Catheterization: Yes (11/2015) Hx Eye Surgery: Yes Hx Pulmonary Surgery: Yes Other/Comment: colon resection with right ileostomy - ANESTHESIA Hx Anesthesia: Yes Hx Anesthesia Reactions: No Hx Malignant Hyperthermia: No Meds Allergies/Adverse Reactions: Allergies Allergy/AdvReac Type Severity Reaction Status Date / Time acetaminophen [From Tylenol] Allergy RASH Verified 08/31/18 11:33 FISH Allergy SWELLING Verified 08/31/18 11:33 shrimp Allergy SHORTNESS Verified 08/31/18 11:33 OF BREATH IV dye Allergy Severe ANAPHYLAXIS Uncoded 04/25/18 17:39 - Medications Medications: Current Medications Albuterol/Ipratropium (Duoneb 3 Mg/0.5 Mg (3 Ml) Ud) 3 ml INH RQ6 [facility] Last Admin: 09/03/18 13:39 Dose: 3 ml Alprazolam (Xanax) 0.5 mg PO Q12 [facility] Last Admin: 09/03/18 09:19 Dose: 0.5 mg Apixaban (Eliquis) 5 mg PO BID [facility] Last Admin: 09/03/18 09:19 Dose: 5 mg Aspirin (Aspirin Chewable) 81 mg PO DAILY [facility] Last Admin: 09/03/18 09:18 Dose: 81 mg Budesonide (Pulmicort Respules) 0.5 mg IH RQ12 [facility] Last Admin: 09/03/18 07:41 Dose: 0.5 mg Diltiazem HCl (Cardizem) 60 mg PO QID [facility] Last Admin: 09/03/18 13:03 Dose: 60 mg Famotidine (Pepcid) 20 mg PO BID [facility] Last Admin: 09/03/18 09:18 Dose: 20 mg Fluticasone/Vilanterol (Breo Ellipta 100-25 Mcg Inh) 1 puff INH RQ24 [facility] Guaifenesin (Robitussin) 200 mg PO QID [facility] Last Admin: 09/03/18 13:03 Dose: 200 mg Insulin Human Regular (Novolin R) 0 unit SC ACHS [facility]; Protocol Last Admin: 09/03/18 11:57 Dose: 3 units Metformin HCl (Glucophage) 500 mg PO BID [facility] Last Admin: 09/03/18 09:18 Dose: 500 mg Methylprednisolone (Solu-Medrol) 30 mg IVP Q12 [facility] Last Admin: 09/03/18 09:19 Dose: 30 mg Oxycodone/Acetaminophen (Percocet 5/325 Mg Tab) 1 tab PO Q4 PRN PRN Reason: Pain, moderate (4-7) Stop: 09/03/18 16:01 Last Admin: 09/02/18 22:05 Dose: 1 tab Pantoprazole Sodium (Protonix Ec Tab) 40 mg PO DAILY [facility] Last Admin: 09/03/18 09:18 Dose: 40 mg Potassium Chloride (Klor-Con 10) 10 meq PO DAILY [facility] Last Admin: 09/03/18 09:18 Dose: 10 meq Pregabalin (Lyrica) 75 mg PO DAILY [facility] Last Admin: 09/03/18 09:18 Dose: 75 mg Roflumilast (Daliresp) 500 mcg PO DAILY [facility] Last Admin: 09/03/18 09:18 Dose: 500 mcg Physical Exam - Constitutional Appears: Well, No Acute Distress - Head Exam Head Exam: ATRAUMATIC, NORMOCEPHALIC - ENT Exam ENT Exam: Mucous Membranes Moist - Respiratory Exam Respiratory Exam: NORMAL BREATHING PATTERN - Cardiovascular Exam Cardiovascular Exam: RRR - GI/Abdominal Exam GI & Abdominal Exam: Soft. absent: Distended, Guarding, Rebound, Tenderness Additional comments: multiple scars from previous surgeries - Extremities Exam Extremities exam: Negative for: tenderness - Neurological Exam Neurological exam: Alert, Oriented x3 - Skin Skin Exam: Dry, Warm Results - Vital Signs Recent Vital Signs: Last Vital Signs Temp 97.7 F 09/03/18 07:20 Pulse 76 09/03/18 09:26 Resp 20 09/03/18 07:20 BP 117/61 09/03/18 09:26 Pulse Ox 99 09/03/18 07:20 - Labs Result Diagrams: 08/31/18 12:08 09/01/18 03:05 Labs: Laboratory Results - last 24 hr 09/02/18 09/02/18 09/03/18 16:10 21:30 06:50 POC Glucose (mg/dL) 279 H 188 H 265 H 09/03/18 11:29 POC Glucose (mg/dL) 217 H Assessment & Plan - Assessment and Plan (Free Text) Assessment: 68M with abdominal pain Plan: - no surgical intervention needed at this time - cont medical management - stool softeners PRN for constipation - d/w Dr. Emilia Martines
--- NOTE | 2018-09-03 16:08 | CP.PCM.PN ---
Subjective - Date & Time of Evaluation Date of Evaluation: 09/03/18 Time of Evaluation: 11:30 - Subjective Subjective: Patient seen and examined at bedside. Patient currently resting comfortably in bed on 3L NC. He has been sleeping with BiPAP and using it 2-3 times during the day. Denies denies SOB and cough. Exam: Gen - no acute distress Card - RRR, no murmurs, rubs or gallops Lungs - normal breathing pattern, diminished breath sounds bilaterally, no wheezes, rales or rhonchi GI - abdomen soft, nontender, no rebound, guarding or rigidity A&P: 1. COPD exacerbation - 08/31/18 CXR: minimal left basilar atelectasis - continue Breo Ellipta, Budesonide, Guaifenesin, Roflumilast - continue Solu-Medrol 30 mg IVP Q12 - stable from pulmonary standpoint Objective - Vital Signs/Intake and Output Vital Signs (last 24 hours): Temp Pulse Resp BP Pulse Ox 97.7 F 76 20 117/61 99 09/03/18 07:20 09/03/18 09:26 09/03/18 07:20 09/03/18 09:26 09/03/18 07:20 Intake and Output: 09/03/18 09/03/18 06:59 18:59 Intake Total 350 Balance 350 - Medications Medications: Current Medications Albuterol/Ipratropium (Duoneb 3 Mg/0.5 Mg (3 Ml) Ud) 3 ml INH RQ6 [facility] Last Admin: 09/03/18 13:39 Dose: 3 ml Alprazolam (Xanax) 0.5 mg PO Q12 [facility] Last Admin: 09/03/18 09:19 Dose: 0.5 mg Apixaban (Eliquis) 5 mg PO BID [facility] Last Admin: 09/03/18 09:19 Dose: 5 mg Aspirin (Aspirin Chewable) 81 mg PO DAILY [facility] Last Admin: 09/03/18 09:18 Dose: 81 mg Budesonide (Pulmicort Respules) 0.5 mg IH RQ12 [facility] Last Admin: 09/03/18 07:41 Dose: 0.5 mg Diltiazem HCl (Cardizem) 60 mg PO QID [facility] Last Admin: 09/03/18 13:03 Dose: 60 mg Famotidine (Pepcid) 20 mg PO BID [facility] Last Admin: 09/03/18 09:18 Dose: 20 mg Fluticasone/Vilanterol (Breo Ellipta 100-25 Mcg Inh) 1 puff INH RQ24 [facility] Guaifenesin (Robitussin) 200 mg PO QID [facility] Last Admin: 09/03/18 13:03 Dose: 200 mg Insulin Human Regular (Novolin R) 0 unit SC ACHS [facility]; Protocol Last Admin: 09/03/18 11:57 Dose: 3 units Metformin HCl (Glucophage) 500 mg PO BID [facility] Last Admin: 09/03/18 09:18 Dose: 500 mg Methylprednisolone (Solu-Medrol) 30 mg IVP Q12 [facility] Last Admin: 09/03/18 09:19 Dose: 30 mg Pantoprazole Sodium (Protonix Ec Tab) 40 mg PO DAILY [facility] Last Admin: 09/03/18 09:18 Dose: 40 mg Potassium Chloride (Klor-Con 10) 10 meq PO DAILY [facility] Last Admin: 09/03/18 09:18 Dose: 10 meq Pregabalin (Lyrica) 75 mg PO DAILY [facility] Last Admin: 09/03/18 09:18 Dose: 75 mg Roflumilast (Daliresp) 500 mcg PO DAILY [facility] Last Admin: 09/03/18 09:18 Dose: 500 mcg - Labs Labs: 08/31/18 12:08 09/01/18 03:05 PT 14.1 SECONDS (9.7-12.2) H 08/31/18 12:08 INR 1.3 08/31/18 12:08 APTT 36 SECONDS (21-34) H 08/31/18 12:08
--- NOTE | 2018-09-03 21:44 | CP.PCM.PN ---
Subjective - Date & Time of Evaluation Date of Evaluation: 09/03/18 Time of Evaluation: 15:00 - Subjective Subjective: dictated Objective - Vital Signs/Intake and Output Vital Signs (last 24 hours): Temp Pulse Resp BP Pulse Ox 97.8 F 79 20 100/54 L 97 09/03/18 15:31 09/03/18 15:31 09/03/18 15:31 09/03/18 15:31 09/03/18 15:31 Intake and Output: 09/03/18 09/04/18 18:59 06:59 Intake Total 350 Balance 350 - Medications Medications: Current Medications Albuterol/Ipratropium (Duoneb 3 Mg/0.5 Mg (3 Ml) Ud) 3 ml INH RQ6 [facility] Last Admin: 09/03/18 19:15 Dose: 3 ml Alprazolam (Xanax) 0.5 mg PO Q12 [facility] Last Admin: 09/03/18 09:19 Dose: 0.5 mg Apixaban (Eliquis) 5 mg PO BID [facility] Last Admin: 09/03/18 18:13 Dose: 5 mg Aspirin (Aspirin Chewable) 81 mg PO DAILY [facility] Last Admin: 09/03/18 09:18 Dose: 81 mg Budesonide (Pulmicort Respules) 0.5 mg IH RQ12 [facility] Last Admin: 09/03/18 19:15 Dose: 0.5 mg Diltiazem HCl (Cardizem) 60 mg PO QID [facility] Last Admin: 09/03/18 18:12 Dose: 60 mg Famotidine (Pepcid) 20 mg PO BID [facility] Last Admin: 09/03/18 18:15 Dose: 20 mg Fluticasone/Vilanterol (Breo Ellipta 100-25 Mcg Inh) 1 puff INH RQ24 [facility] Guaifenesin (Robitussin) 200 mg PO QID [facility] Last Admin: 09/03/18 18:16 Dose: 200 mg Insulin Human Regular (Novolin R) 0 unit SC [facility]; Protocol Last Admin: 09/03/18 18:14 Dose: 8 u Metformin HCl (Glucophage) 500 mg PO BID [facility] Last Admin: 09/03/18 18:13 Dose: 500 mg Methylprednisolone (Solu-Medrol) 30 mg IVP Q12 [facility] Last Admin: 09/03/18 09:19 Dose: 30 mg Pantoprazole Sodium (Protonix Ec Tab) 40 mg PO DAILY [facility] Last Admin: 09/03/18 09:18 Dose: 40 mg Potassium Chloride (Klor-Con 10) 10 meq PO DAILY [facility] Last Admin: 09/03/18 09:18 Dose: 10 meq Pregabalin (Lyrica) 75 mg PO DAILY [facility] Last Admin: 09/03/18 09:18 Dose: 75 mg Roflumilast (Daliresp) 500 mcg PO DAILY [facility] Last Admin: 09/03/18 09:18 Dose: 500 mcg - Labs Labs: 08/31/18 12:08 09/01/18 03:05 PT 14.1 SECONDS (9.7-12.2) H 08/31/18 12:08 INR 1.3 08/31/18 12:08 APTT 36 SECONDS (21-34) H 08/31/18 12:08
[2018-09-04] MEDS: Albuterol-Ipratrop 3 mg / 0.5 (3 ml) UD INH SCH ×4 (01:15→20:30)
--- NOTE | 2018-09-04 04:41 | PN ---
DATE: 09/03/2018 SUBJECTIVE: The patient is coughing and wheezing. He is less short of breath. No nausea or vomiting. Chest pain upon deep coughing. No fever. No chills. He is on Solu-Medrol. PHYSICAL EXAMINATION: VITAL SIGNS: Blood pressure is 100/54, pulse 79, respiratory rate 20, and temperature 97.8. LUNGS: Bilateral inspiratory and expiratory rhonchi. Decreased air entry. CARDIOVASCULAR SYSTEM: S1, S2 regular. Tachycardic. ABDOMEN: Soft and nontender. Bowel sounds are positive. ASSESSMENT: 1. Exacerbation of chronic obstructive pulmonary disease. 2. Diabetes, steroid induced. 3. Allergic rhinitis. PLAN: Continue current medication. Taper steroid. Monitor the patient. Hal Garcia MD
--- NOTE | 2018-09-04 06:14 | PN ---
DATE: 09/03/2018 SUBJECTIVE: The patient denies any chest pain. She complains of mild abdominal pain. No reported malignant arrhythmia. PHYSICAL EXAMINATION: VITAL SIGNS: Blood pressure 100/54, heart rate 79, temperature 97.8, respirations 20. HEENT: Pale conjunctivae. CHEST: Bilateral rhonchi. HEART: S1 and S2 are regular. ABDOMEN: Soft. EXTREMITIES: No edema. LABORATORY DATA: Today's blood sugars 265 and 217 respectively. ASSESSMENT: 1. Chest pain, myocardial infarction ruled out. 2. Chronic obstructive lung disease. 3. History of recent deep venous thrombosis and pulmonary embolism. The most recent venous Doppler of the lower extremities is negative. RECOMMENDATIONS: Continue aspirin 81 mg once a day, Cardizem 60 mg b.i.d., albuterol inhaler every 6 hours, Eliquis 5 mg twice a day, Glucophage 500 mg twice a day, Pepcid 20 mg p.o. twice a day, Solu-Medrol 30 mg intravenously every 12 hours. The patient was evaluated by the surgical team, and no surgical intervention is needed at this time. Stool softener p.r.n. for constipation. Mukesh Correia MD
[2018-09-04] MEDS: Budesonide 0.5 mg/2 ml Inhal Susp UD IH SCH ×2 (07:53→20:31)
[2018-09-04] MEDS: Pantoprazole 40 mg EC Tab PO SCH (10:41)
[2018-09-04] MEDS: (Novolin R) Insulin Human Regular 100 units/ml vial SC SCH ×4 (10:42→22:00)
[2018-09-04] MEDS: Potassium Chloride 10 mEq ER Tab PO SCH (10:42)
[2018-09-04] MEDS: MethylPREDNISolone 40 mg Vial IVP SCH ×2 (10:43→22:36)
[2018-09-04] MEDS: guaiFENesin 100 mg/5 ml Syrup UD PO SCH ×4 (10:50→22:36)
--- NOTE | 2018-09-04 14:26 | CP.PCM.PN ---
Subjective - Date & Time of Evaluation Date of Evaluation: 09/04/18 Time of Evaluation: 14:26 - Subjective Subjective: ct with contrast ordered to evaluate abd pain Objective - Vital Signs/Intake and Output Vital Signs (last 24 hours): Temp Pulse Resp BP Pulse Ox 97.6 F 82 20 117/73 97 09/04/18 07:20 09/04/18 13:34 09/04/18 07:20 09/04/18 07:20 09/04/18 07:20 Intake and Output: 09/04/18 09/04/18 06:59 18:59 Intake Total 300 Balance 300 - Medications Medications: Current Medications Albuterol/Ipratropium (Duoneb 3 Mg/0.5 Mg (3 Ml) Ud) 3 ml INH RQ6 [facility] Last Admin: 09/04/18 13:33 Dose: 3 ml Alprazolam (Xanax) 0.5 mg PO Q12 [facility] Last Admin: 09/04/18 10:42 Dose: 0.5 mg Apixaban (Eliquis) 5 mg PO BID [facility] Last Admin: 09/04/18 10:42 Dose: 5 mg Aspirin (Aspirin Chewable) 81 mg PO DAILY [facility] Last Admin: 09/04/18 10:42 Dose: 81 mg Budesonide (Pulmicort Respules) 0.5 mg IH RQ12 [facility] Last Admin: 09/04/18 07:53 Dose: 0.5 mg Diltiazem HCl (Cardizem) 60 mg PO QID [facility] Last Admin: 09/04/18 13:09 Dose: 60 mg Famotidine (Pepcid) 20 mg PO BID [facility] Last Admin: 09/04/18 10:42 Dose: 20 mg Fluticasone/Vilanterol (Breo Ellipta 100-25 Mcg Inh) 1 puff INH RQ24 [facility] Guaifenesin (Robitussin) 200 mg PO QID [facility] Last Admin: 09/04/18 13:09 Dose: 200 mg Insulin Human Regular (Novolin R) 0 unit SC ACHS [facility]; Protocol Last Admin: 09/04/18 13:09 Dose: 4 units Metformin HCl (Glucophage) 500 mg PO BID [facility] Last Admin: 09/04/18 10:42 Dose: 500 mg Methylprednisolone (Solu-Medrol) 30 mg IVP Q12 [facility] Last Admin: 09/04/18 10:43 Dose: 30 mg Pantoprazole Sodium (Protonix Ec Tab) 40 mg PO DAILY [facility] Last Admin: 09/04/18 10:41 Dose: 40 mg Potassium Chloride (Klor-Con 10) 10 meq PO DAILY [facility] Last Admin: 09/04/18 10:42 Dose: 10 meq Pregabalin (Lyrica) 75 mg PO DAILY [facility] Last Admin: 09/04/18 10:41 Dose: 75 mg Roflumilast (Daliresp) 500 mcg PO DAILY [facility] Last Admin: 09/04/18 10:41 Dose: 500 mcg Sennosides (Senokot Tab) 8.6 mg PO DAILY [facility] Last Admin: 09/04/18 10:41 Dose: 8.6 mg - Labs Labs: 08/31/18 12:08 09/01/18 03:05 PT 14.1 SECONDS (9.7-12.2) H 08/31/18 12:08 INR 1.3 08/31/18 12:08 APTT 36 SECONDS (21-34) H 08/31/18 12:08
--- NOTE | 2018-09-04 15:32 | CP.PCM.PN ---
Subjective - Date & Time of Evaluation Date of Evaluation: 09/04/18 Time of Evaluation: 11:45 - Subjective Subjective: Patient seen and examined at bedside. He had an episode of lightheadedness at 6 AM today where he fell in the bathroom followed by chest pain and palpitations. EKG was negative and symptoms resolved with Xanax. 09/01/18 troponins and LE doppler were negative, patient is on ASA and Eliquis. Patient currently resting comfortably in bed on 3L NC. Denies denies SOB and cough. Exam: Gen - no acute distress Card - RRR, no murmurs, rubs or gallops Lungs - normal breathing pattern, diminished breath sounds bilaterally, no wheezes, rales or rhonchi GI - abdomen soft, nontender, no rebound, guarding or rigidity A&P: 1. COPD exacerbation - 08/31/18 CXR: minimal left basilar atelectasis - continue Breo Ellipta, Budesonide, Guaifenesin, Roflumilast - taper steroids - stable from pulmonary standpoint Objective - Vital Signs/Intake and Output Vital Signs (last 24 hours): Temp Pulse Resp BP Pulse Ox 97.6 F 82 20 117/73 97 09/04/18 07:20 09/04/18 13:34 09/04/18 07:20 09/04/18 07:20 09/04/18 07:20 Intake and Output: 09/04/18 09/04/18 06:59 18:59 Intake Total 300 Balance 300 - Medications Medications: Current Medications Albuterol/Ipratropium (Duoneb 3 Mg/0.5 Mg (3 Ml) Ud) 3 ml INH RQ6 [facility] Last Admin: 09/04/18 13:33 Dose: 3 ml Alprazolam (Xanax) 0.5 mg PO Q12 [facility] Last Admin: 09/04/18 10:42 Dose: 0.5 mg Apixaban (Eliquis) 5 mg PO BID [facility] Last Admin: 09/04/18 10:42 Dose: 5 mg Aspirin (Aspirin Chewable) 81 mg PO DAILY [facility] Last Admin: 09/04/18 10:42 Dose: 81 mg Budesonide (Pulmicort Respules) 0.5 mg IH RQ12 [facility] Last Admin: 09/04/18 07:53 Dose: 0.5 mg Diltiazem HCl (Cardizem) 60 mg PO QID [facility] Last Admin: 09/04/18 13:09 Dose: 60 mg Famotidine (Pepcid) 20 mg PO BID [facility] Last Admin: 09/04/18 10:42 Dose: 20 mg Fluticasone/Vilanterol (Breo Ellipta 100-25 Mcg Inh) 1 puff INH RQ24 [facility] Guaifenesin (Robitussin) 200 mg PO QID [facility] Last Admin: 09/04/18 13:09 Dose: 200 mg Insulin Human Regular (Novolin R) 0 unit SC [facility]; Protocol Last Admin: 09/04/18 13:09 Dose: 4 units Metformin HCl (Glucophage) 500 mg PO BID [facility] Last Admin: 09/04/18 10:42 Dose: 500 mg Methylprednisolone (Solu-Medrol) 30 mg IVP Q12 [facility] Last Admin: 09/04/18 10:43 Dose: 30 mg Pantoprazole Sodium (Protonix Ec Tab) 40 mg PO DAILY [facility] Last Admin: 09/04/18 10:41 Dose: 40 mg Potassium Chloride (Klor-Con 10) 10 meq PO DAILY [facility] Last Admin: 09/04/18 10:42 Dose: 10 meq Pregabalin (Lyrica) 75 mg PO DAILY [facility] Last Admin: 09/04/18 10:41 Dose: 75 mg Roflumilast (Daliresp) 500 mcg PO DAILY [facility] Last Admin: 09/04/18 10:41 Dose: 500 mcg Sennosides (Senokot Tab) 8.6 mg PO DAILY [facility] Last Admin: 09/04/18 10:41 Dose: 8.6 mg - Labs Labs: 08/31/18 12:08 09/01/18 03:05 PT 14.1 SECONDS (9.7-12.2) H 08/31/18 12:08 INR 1.3 08/31/18 12:08 APTT 36 SECONDS (21-34) H 08/31/18 12:08
[2018-09-04 15:52] LABS: HEMOGLOBIN 9.4 g/dL (12.0-18.0); MEAN CELL VOLUME 69.3 fL (80.0-94.0); MEAN CORPUSCULAR HEMOGLOBIN 21.7 pg (27.0-31.0); MEAN CORPUSCULAR HGB CONC 31.3 g/dL (33.0-37.0); RBC 4.32 Mil/uL (4.40-5.90); RED CELL DISTRIBUTION WIDTH 15.8 % (11.5-14.5)
[2018-09-04 15:53] LABS: WHITE BLOOD COUNT 10.6 K/uL (4.8-10.8)
[2018-09-04] MEDS: Iohexol 240 (50 ml) PO ONE (16:01)
--- NOTE | 2018-09-04 16:41 | RAD ---
Date of service: 09/04/2018 HISTORY: abdominal pain r side , s/p closure of ileostomy COMPARISON: None available. FINDINGS: BOWEL: No evidence of mechanical small bowel obstruction. There is distention of the colon up to 9 cm diameter uncertain significance. Possible colonic ileus. BONES: Normal. OTHER FINDINGS: Vena caval filter noted. IMPRESSION: Mild colonic distention. Vena caval filter
--- NOTE | 2018-09-04 19:29 | PN ---
DATE: 09/04/2018 SUBJECTIVE: The patient had fresh blood per rectum and had bowel movement just before I saw him. He is still experiencing mild abdominal discomfort. He denies any nausea or vomiting. No retrosternal chest pain. PHYSICAL EXAMINATION VITAL SIGNS: Blood pressure 117/73, heart rate 72, temperature 97.6, respirations 20. HEENT: Pale conjunctivae. CHEST: Bilateral rhonchi. HEART: S1 and S2 regular. EXTREMITIES: No edema. LABORATORY DATA: Hemoglobin and hematocrit done this afternoon after the bloody bowel movement were 9.4 and 29.9. White count and platelet count are within normal limit. Yesterday's blood sugars 296 and 279. ASSESSMENT: 1. Rectal bleeding. 2. History of deep venous thrombosis and pulmonary embolism. 3. Chronic obstructive lung disease. 4. Chest pain, myocardial infarction was ruled out. 5. Anxiety disorder. 6. Anemia. RECOMMENDATIONS: Discontinue aspirin and Eliquis for now. Continue Cardizem 60 mg four times a day, metformin 500 mg two times a day, Solu-Medrol 30 mg every 12 hours. The patient will undergo abdomen and pelvis CT scan, and I recommend GI evaluation. Mukesh Correia MD
--- NOTE | 2018-09-04 22:54 | CP.PCM.PN ---
Subjective - Date & Time of Evaluation Date of Evaluation: 09/04/18 Time of Evaluation: 20:20 - Subjective Subjective: dictated Objective - Vital Signs/Intake and Output Vital Signs (last 24 hours): Temp Pulse Resp BP Pulse Ox 97.7 F 81 20 111/66 99 09/04/18 15:27 09/04/18 15:27 09/04/18 15:27 09/04/18 15:27 09/04/18 15:27 Intake and Output: 09/04/18 09/05/18 18:59 06:59 Intake Total 300 Balance 300 - Medications Medications: Current Medications Albuterol/Ipratropium (Duoneb 3 Mg/0.5 Mg (3 Ml) Ud) 3 ml INH RQ6 [facility] Last Admin: 09/04/18 20:30 Dose: 3 ml Alprazolam (Xanax) 0.5 mg PO Q12 [facility] Last Admin: 09/04/18 22:37 Dose: 0.5 mg Budesonide (Pulmicort Respules) 0.5 mg IH RQ12 [facility] Last Admin: 09/04/18 20:31 Dose: 0.5 mg Diltiazem HCl (Cardizem) 60 mg PO QID [facility] Last Admin: 09/04/18 22:36 Dose: 60 mg Famotidine (Pepcid) 20 mg PO BID [facility] Last Admin: 09/04/18 18:58 Dose: 20 mg Fluticasone/Vilanterol (Breo Ellipta 100-25 Mcg Inh) 1 puff INH RQ24 [facility] Guaifenesin (Robitussin) 200 mg PO QID [facility] Last Admin: 09/04/18 22:36 Dose: 200 mg Insulin Human Regular (Novolin R) 0 unit SC [facility]; Protocol Last Admin: 09/04/18 22:00 Dose: Not Given Metformin HCl (Glucophage) 500 mg PO BID [facility] Last Admin: 09/04/18 18:55 Dose: Not Given Methylprednisolone (Solu-Medrol) 30 mg IVP Q12 [facility] Last Admin: 09/04/18 22:36 Dose: 30 mg Pantoprazole Sodium (Protonix Ec Tab) 40 mg PO DAILY [facility] Last Admin: 09/04/18 10:41 Dose: 40 mg Potassium Chloride (Klor-Con 10) 10 meq PO DAILY [facility] Last Admin: 09/04/18 10:42 Dose: 10 meq Pregabalin (Lyrica) 75 mg PO DAILY [facility] Last Admin: 09/04/18 10:41 Dose: 75 mg Roflumilast (Daliresp) 500 mcg PO DAILY [facility] Last Admin: 09/04/18 10:41 Dose: 500 mcg Sennosides (Senokot Tab) 8.6 mg PO DAILY [facility] Last Admin: 09/04/18 10:41 Dose: 8.6 mg - Labs Labs: 09/04/18 15:49 09/01/18 03:05 PT 14.1 SECONDS (9.7-12.2) H 08/31/18 12:08 INR 1.3 08/31/18 12:08 APTT 36 SECONDS (21-34) H 08/31/18 12:08
--- NOTE | 2018-09-05 00:39 | PN ---
DATE: 09/04/2018 SUBJECTIVE: Today the patient had bright red bleed per rectum, and he has right lower quadrant pain. The patient denies any fever or chills. He denies any nausea or vomiting. He has been seen by GI. CT of abdomen and pelvis has been ordered. The patient in the meantime is less short of breath, less cough, less wheezing. He is on low-dose steroids. PHYSICAL EXAMINATION VITAL SIGNS: Blood pressure 111/66, pulse 81, respiratory rate 20, temperature 97.7. LUNGS: Bilateral inspiratory and expiratory rhonchi, decreased air entry. CARDIOVASCULAR SYSTEM: S1 and S2 regular. No heave. No thrill. ABDOMEN: Soft. Nontender. Bowel sounds positive. ASSESSMENT: 1. Acute exacerbation of chronic obstructive pulmonary disease. 2. Gastrointestinal bleed. The patient with a history of colorectal cancer. Monitor CBC. GI evaluation. Follow CT of abdomen and pelvis the patient might need a repeat colonoscopy. 3. Steroid-induced diabetes. 4. Allergic rhinitis. PLAN: Monitor H and H tomorrow morning. Hal Garcia MD
[2018-09-05] MEDS: Albuterol-Ipratrop 3 mg / 0.5 (3 ml) UD INH SCH ×4 (01:20→20:39)
[2018-09-05 07:10] LABS: LYMPH # 0.5 K/uL (1.0-4.3); LYMPH % 6.6 % (20.0-40.0); MEAN CELL VOLUME 68.5 fL (80.0-94.0); MEAN CORPUSCULAR HEMOGLOBIN 20.6 pg (27.0-31.0); MEAN CORPUSCULAR HGB CONC 30.1 g/dL (33.0-37.0); MEAN PLATELET VOLUME 8.1 fL (7.2-11.7); MONO # 0.4 K/uL (0.0-0.8); MONO % 4.8 % (0.0-10.0); NEUT # 6.6 K/uL (1.8-7.0); NEUT % 88.6 % (50.0-75.0); PLATELET COUNT 346 K/uL (130-400); RBC 4.34 Mil/uL (4.40-5.90); RED CELL DISTRIBUTION WIDTH 16.2 % (11.5-14.5); WHITE BLOOD COUNT 7.5 K/uL (4.8-10.8)
[2018-09-05 07:43] LABS: BLOOD UREA NITROGEN 14 mg/dL (9-20); CALCIUM 8.8 mg/dl (8.6-10.4); GFR NON-AFRICAN AMERICAN > 60
[2018-09-05] MEDS: Budesonide 0.5 mg/2 ml Inhal Susp UD IH SCH ×2 (08:02→20:39)
--- NOTE | 2018-09-05 08:17 | CP.PCM.CON ---
<KatethaissavanahGeovanny - Last Filed: 09/05/18 08:31> History of Present Illness - History of Present Illness History of Present Illness: GI Fellow PGY4, Consult note. Nathen Lawson is a very pleasant 68M who was admitted 08/31/18 for COPD exacerbation. He has been improving, but did have an episode of rectal bleeding yesterday. Patient reports it as a little red blood after bowel movement. He has had a BM since that time and it was brown per the patient. Hb has been stable since admission. There are no NSAIDs or OAC on the OCT. He has been complaining of abdominal pain and distension. He had a CT scan yesterday and reviewed. Moderate distension of colon, no obvious obstruction, rectal wall thickening. 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 10/28 colonoscopy - anastamosis at sigmoid with friable, congested tissue; completed colon to TI. 11/28 - closed loop ileostomy. 02/27 - IVC filter for DVT. 04/30 - Ileostomy prolapse and fistula breakdown s/p repair. FMHx - Denies colon CA SocHx - Denies alcohol, tobacco use. 12pt ROS completed and negative except for above. Past Patient History - Infectious Disease Hx of Infectious Diseases: None - Past Medical History & Family History Past Medical History?: Yes - Past Social History Smoking Status: Former Smoker - CARDIAC Hx Cardia Arrhythmia: Yes (SVT) Hx Congestive Heart Failure: Yes Hx Hypercholesterolemia: Yes Hx Hypertension: Yes - PULMONARY Hx Asthma: Yes Hx Bronchitis: Yes Hx Chronic Obstructive Pulmonary Disease (COPD): Yes Hx Emphysema: Yes Hx Pneumonia: Yes Hx Sleep Apnea: Yes (ON DALIRESP) - NEUROLOGICAL Hx Neurological Disorder: No HX Cerebrovascular Accident: No - HEENT Hx HEENT Problems: Yes Hx Cataracts: Yes - RENAL Hx Chronic Kidney Disease: Yes Hx Kidney Stones: Yes - ENDOCRINE/METABOLIC Hx Endocrine Disorders: Yes Hx Diabetes Mellitus Type 2: Yes - HEMATOLOGICAL/ONCOLOGICAL Hx Anemia: Yes - INTEGUMENTARY Hx Dermatological Problems: Yes (SEE COMMENT) Other/Comment: Scattered ecchymosis on both arms. - MUSCULOSKELETAL/RHEUMATOLOGICAL Hx Arthritis: Yes Hx Falls: Yes Hx Fractures: No - GASTROINTESTINAL Hx Gastritis: No - PSYCHIATRIC Hx Anxiety: Yes Hx Substance Use: No - SURGICAL HISTORY Hx Surgeries: Yes (SEE COMMENT) Hx Cataract Extraction: Yes (left eye, right eye) Hx Cardiac Catheterization: Yes (11/2015) Hx Eye Surgery: Yes Hx Pulmonary Surgery: Yes Other/Comment: colon resection with right ileostomy - ANESTHESIA Hx Anesthesia: Yes Hx Anesthesia Reactions: No Hx Malignant Hyperthermia: No Meds Allergies/Adverse Reactions: Allergies Allergy/AdvReac Type Severity Reaction Status Date / Time acetaminophen [From Tylenol] Allergy RASH Verified 08/31/18 11:33 FISH Allergy SWELLING Verified 08/31/18 11:33 shrimp Allergy SHORTNESS Verified 08/31/18 11:33 OF BREATH IV dye Allergy Severe ANAPHYLAXIS Uncoded 04/25/18 17:39 - Medications Medications: Current Medications Albuterol/Ipratropium (Duoneb 3 Mg/0.5 Mg (3 Ml) Ud) 3 ml INH RQ6 [facility] Last Admin: 09/05/18 08:02 Dose: 3 ml Alprazolam (Xanax) 0.5 mg PO Q12 [facility] Last Admin: 09/04/18 22:37 Dose: 0.5 mg Budesonide (Pulmicort Respules) 0.5 mg IH RQ12 [facility] Last Admin: 09/05/18 08:02 Dose: 0.5 mg Diltiazem HCl (Cardizem) 60 mg PO QID [facility] Last Admin: 09/04/18 22:36 Dose: 60 mg Famotidine (Pepcid) 20 mg PO BID [facility] Last Admin: 09/04/18 18:58 Dose: 20 mg Fluticasone/Vilanterol (Breo Ellipta 100-25 Mcg Inh) 1 puff INH RQ24 [facility] Guaifenesin (Robitussin) 200 mg PO QID [facility] Last Admin: 09/04/18 22:36 Dose: 200 mg Insulin Human Regular (Novolin R) 0 unit SC ACHS [facility]; Protocol Last Admin: 09/04/18 22:00 Dose: Not Given Metformin HCl (Glucophage) 500 mg PO BID [facility] Last Admin: 09/04/18 18:55 Dose: Not Given Methylprednisolone (Solu-Medrol) 30 mg IVP Q12 [facility] Last Admin: 09/04/18 22:36 Dose: 30 mg Pantoprazole Sodium (Protonix Ec Tab) 40 mg PO DAILY [facility] Last Admin: 09/04/18 10:41 Dose: 40 mg Potassium Chloride (Klor-Con 10) 10 meq PO DAILY [facility] Last Admin: 09/04/18 10:42 Dose: 10 meq Pregabalin (Lyrica) 75 mg PO DAILY [facility] Last Admin: 09/04/18 10:41 Dose: 75 mg Roflumilast (Daliresp) 500 mcg PO DAILY [facility] Last Admin: 09/04/18 10:41 Dose: 500 mcg Sennosides (Senokot Tab) 8.6 mg PO DAILY [facility] Last Admin: 09/04/18 10:41 Dose: 8.6 mg Physical Exam - Constitutional Appears: Non-toxic, No Acute Distress, Chronically Ill - Head Exam Head Exam: NORMAL INSPECTION - Eye Exam Eye Exam: EOMI, Normal appearance - ENT Exam ENT Exam: Mucous Membranes Moist, Normal Exam - Respiratory Exam Respiratory Exam: Clear to Auscultation Bilateral, NORMAL BREATHING PATTERN - Cardiovascular Exam Cardiovascular Exam: REGULAR RHYTHM, +S1, +S2 - GI/Abdominal Exam GI & Abdominal Exam: Normal Bowel Sounds, Soft. absent: Tenderness Additional comments: Moderate distension. Percussion tympanic. Significant scar tissue from previous surgeries. - Rectal Exam Rectal Exam: NORMAL INSPECTION. absent: Black Stool, Bloody Stool - Extremities Exam Extremities exam: Positive for: normal inspection. Negative for: pedal edema - Neurological Exam Neurological exam: Alert, CN II-XII Intact, Oriented x3 - Psychiatric Exam Psychiatric exam: Normal Affect, Normal Mood - Skin Skin Exam: Normal Color, Warm Results - Vital Signs Recent Vital Signs: Last Vital Signs Temp 97.2 F L 09/05/18 07:20 Pulse 82 09/05/18 07:20 Resp 20 09/05/18 07:20 BP 129/68 09/05/18 07:20 Pulse Ox 95 09/05/18 07:20 - Labs Result Diagrams: 09/05/18 07:00 09/05/18 07:00 Labs: Laboratory Results - last 24 hr 09/03/18 09/04/18 09/04/18 21:31 11:05 15:49 WBC 10.6 D RBC 4.32 L Hgb 9.4 L Hct 29.9 L MCV 69.3 L MCH 21.7 L MCHC 31.3 L RDW 15.8 H Plt Count 351 MPV 8.0 Neut % (Auto) Lymph % (Auto) Overton % (Auto) Eos % (Auto) Baso % (Auto) Neut # (Auto) Lymph # (Auto) Overton # (Auto) Eos # (Auto) Baso # (Auto) Sodium Potassium Chloride Carbon Dioxide Anion Gap BUN Creatinine Est GFR ( Amer) Est GFR (Non-Af Amer) POC Glucose (mg/dL) 268 H 279 H Random Glucose Calcium 09/04/18 09/04/18 09/05/18 16:42 21:04 06:21 WBC RBC Hgb Hct MCV MCH MCHC RDW Plt Count MPV Neut % (Auto) Lymph % (Auto) Overton % (Auto) Eos % (Auto) Baso % (Auto) Neut # (Auto) Lymph # (Auto) Overton # (Auto) Eos # (Auto) Baso # (Auto) Sodium Potassium Chloride Carbon Dioxide Anion Gap BUN Creatinine Est GFR ( Amer) Est GFR (Non-Af Amer) POC Glucose (mg/dL) 231 H 266 H 316 H Random Glucose Calcium 09/05/18 09/05/18 07:00 07:00 WBC 7.5 RBC 4.34 L Hgb 9.0 L Hct 29.7 L MCV 68.5 L MCH 20.6 L MCHC 30.1 L RDW 16.2 H Plt Count 346 MPV 8.1 Neut % (Auto) 88.6 H Lymph % (Auto) 6.6 L Overton % (Auto) 4.8 Eos % (Auto) 0.0 Baso % (Auto) 0.0 Neut # (Auto) 6.6 Lymph # (Auto) 0.5 L Overton # (Auto) 0.4 Eos # (Auto) 0.0 Baso # (Auto) 0.0 Sodium 134 Potassium 4.4 Chloride 97 L Carbon Dioxide 30 Anion Gap 11 BUN 14 Creatinine 0.6 L Est GFR ( Amer) > 60 Est GFR (Non-Af Amer) > 60 POC Glucose (mg/dL) Random Glucose 277 H Calcium 8.8 Assessment & Plan - Assessment and Plan (Free Text) Assessment: #Rectal bleed #Hx of colon cancer s/p colon resection, ileostomy reversal. #COPD, frequently requiring steroids. #T2DM PLAN: -Previous colonoscopy 10/28 reviewed: Sigmoid anastomosis with friable, congested tissue. TI visualized. -CT reviewed - Moderate colonic distension, no obvious obstruction, rectal wall thickening -No obvious active rectal bleed at this time. -Monitor abdominal distension. -Will consider colonoscopy tomorrow based on clinical picture, and inability to follow up as outpatient due to recurrent hospitalizations. -Clear liquid diet. Case discussed with Dr. Black, see attestation. - Date & Time Date: 09/05/18 Time: 08:35 <Edgardo Blackevmarissa Turk - Last Filed: 09/05/18 10:26> Meds - Medications Medications: Current Medications Albuterol/Ipratropium (Duoneb 3 Mg/0.5 Mg (3 Ml) Ud) 3 ml INH RQ6 [facility] Last Admin: 09/05/18 08:02 Dose: 3 ml Alprazolam (Xanax) 0.5 mg PO Q12 [facility] Last Admin: 09/04/18 22:37 Dose: 0.5 mg Budesonide (Pulmicort Respules) 0.5 mg IH RQ12 [facility] Last Admin: 09/05/18 08:02 Dose: 0.5 mg Diltiazem HCl (Cardizem) 60 mg PO QID [facility] Last Admin: 09/04/18 22:36 Dose: 60 mg Famotidine (Pepcid) 20 mg PO BID [facility] Last Admin: 09/04/18 18:58 Dose: 20 mg Fluticasone/Vilanterol (Breo Ellipta 100-25 Mcg Inh) 1 puff INH RQ24 [facility] Guaifenesin (Robitussin) 200 mg PO QID [facility] Last Admin: 09/04/18 22:36 Dose: 200 mg Insulin Human Regular (Novolin R) 0 unit SC [facility]; Protocol Last Admin: 09/05/18 08:52 Dose: 6 units Metformin HCl (Glucophage) 500 mg PO BID [facility] Last Admin: 09/04/18 18:55 Dose: Not Given Methylprednisolone (Solu-Medrol) 30 mg IVP Q12 [facility] Last Admin: 09/04/18 22:36 Dose: 30 mg Pantoprazole Sodium (Protonix Ec Tab) 40 mg PO DAILY [facility] Last Admin: 09/04/18 10:41 Dose: 40 mg Potassium Chloride (Klor-Con 10) 10 meq PO DAILY [facility] Last Admin: 09/04/18 10:42 Dose: 10 meq Pregabalin (Lyrica) 75 mg PO DAILY [facility] Last Admin: 09/04/18 10:41 Dose: 75 mg Roflumilast (Daliresp) 500 mcg PO DAILY [facility] Last Admin: 09/04/18 10:41 Dose: 500 mcg Sennosides (Senokot Tab) 8.6 mg PO DAILY [facility] Last Admin: 09/04/18 10:41 Dose: 8.6 mg Results - Vital Signs Recent Vital Signs: Last Vital Signs Temp 97.2 F L 09/05/18 07:20 Pulse 82 09/05/18 07:20 Resp 20 09/05/18 07:20 BP 129/68 09/05/18 07:20 Pulse Ox 95 09/05/18 07:20 - Labs Result Diagrams: 09/05/18 07:00 09/05/18 07:00 Labs: Laboratory Results - last 24 hr 09/04/18 09/04/18 09/04/18 11:05 15:49 16:42 WBC 10.6 D RBC 4.32 L Hgb 9.4 L Hct 29.9 L MCV 69.3 L MCH 21.7 L MCHC 31.3 L RDW 15.8 H Plt Count 351 MPV 8.0 Neut % (Auto) Lymph % (Auto) Overton % (Auto) Eos % (Auto) Baso % (Auto) Neut # (Auto) Lymph # (Auto) Overton # (Auto) Eos # (Auto) Baso # (Auto) Neutrophils % (Manual) Lymphocytes % (Manual) Monocytes % (Manual) Platelet Estimate Hypochromasia (manual) Poikilocytosis (manual Anisocytosis (manual) Tear Drop Cells Ovalocytes Sodium Potassium Chloride Carbon Dioxide Anion Gap BUN Creatinine Est GFR ( Amer) Est GFR (Non-Af Amer) POC Glucose (mg/dL) 279 H 231 H Random Glucose Calcium 09/04/18 09/05/18 09/05/18 21:04 06:21 07:00 WBC 7.5 RBC 4.34 L Hgb 9.0 L Hct 29.7 L MCV 68.5 L MCH 20.6 L MCHC 30.1 L RDW 16.2 H Plt Count 346 MPV 8.1 Neut % (Auto) 88.6 H Lymph % (Auto) 6.6 L Overton % (Auto) 4.8 Eos % (Auto) 0.0 Baso % (Auto) 0.0 Neut # (Auto) 6.6 Lymph # (Auto) 0.5 L Overton # (Auto) 0.4 Eos # (Auto) 0.0 Baso # (Auto) 0.0 Neutrophils % (Manual) 91 H Lymphocytes % (Manual) 6 L Monocytes % (Manual) 3 Platelet Estimate Normal Hypochromasia (manual) Slight Poikilocytosis (manual Slight Anisocytosis (manual) Slight Tear Drop Cells Slight Ovalocytes Slight Sodium Potassium Chloride Carbon Dioxide Anion Gap BUN Creatinine Est GFR ( Amer) Est GFR (Non-Af Amer) POC Glucose (mg/dL) 266 H 316 H Random Glucose Calcium 09/05/18 07:00 WBC RBC Hgb Hct MCV MCH MCHC RDW Plt Count MPV Neut % (Auto) Lymph % (Auto) Overton % (Auto) Eos % (Auto) Baso % (Auto) Neut # (Auto) Lymph # (Auto) Overton # (Auto) Eos # (Auto) Baso # (Auto) Neutrophils % (Manual) Lymphocytes % (Manual) Monocytes % (Manual) Platelet Estimate Hypochromasia (manual) Poikilocytosis (manual Anisocytosis (manual) Tear Drop Cells Ovalocytes Sodium 134 Potassium 4.4 Chloride 97 L Carbon Dioxide 30 Anion Gap 11 BUN 14 Creatinine 0.6 L Est GFR ( Amer) > 60 Est GFR (Non-Af Amer) > 60 POC Glucose (mg/dL) Random Glucose 277 H Calcium 8.8 Attending/Attestation - Attestation I have personally seen and examined this patient.: Yes I have fully participated in the care of the patient.: Yes I have reviewed all pertinent clinical information: Yes Notes (Text): 09/05/18 10:19 I have seen and examined patient with GI fellow. Agree with above documentation with the following additions. In brief, this is a 68 year old male with history of colon cancer s/p resection with ostomy reversal, COPD who was admitted to hospital 5 days ago for dyspnea and currently treated for COPD exacerbation. GI called for evaluation of rectal bleeding which patient experienced yesterday. He reports mild epigastric tenderness with abdominal distention but denies nausea, vomiting, fever/chills, weight loss. He had a bowel movement this morning which was normal without presence of blood. Additional physical examination: Abdomen: no palpable hepato/splenomegaly History of colon cancer s/p partial colon resection with ostomy reversal COPD Rectal bleeding CT imaging reviewed by me showing rectal wall thickening, colonic distention - Liquid diet as tolerated - H/H stable, continue to monitor - Given prior history of colon cancer with abnormal CT imaging and rectal bleeding, patient would require colonoscopy evaluation to rule out tumor recurre nce. Golytely bowel preparation today, NPO after midnight.
[2018-09-05] MEDS: (Novolin R) Insulin Human Regular 100 units/ml vial SC SCH ×4 (08:52→22:04)
[2018-09-05 09:46] LABS: LYMPHOCYTE 6 % (20-40); MONOCYTE 3 % (0-10); NEUTROPHIL 91 % (50-75); PLATELET ESTIMATE NORMAL (NORMAL); TOTAL CELLS COUNTED 100
[2018-09-05 09:47] LABS: ANISOCYTOSIS SLIGHT; HYPOCHROMIC SLIGHT; POIKILOCYTOSIS SLIGHT
[2018-09-05 09:48] LABS: OVALOCYTES SLIGHT; TEARDROP CELLS SLIGHT
[2018-09-05] MEDS: Potassium Chloride 10 mEq ER Tab PO SCH (10:41)
[2018-09-05] MEDS: MethylPREDNISolone 40 mg Vial IVP SCH (10:41)
[2018-09-05] MEDS: Pantoprazole 40 mg EC Tab PO SCH (10:41)
[2018-09-05] MEDS: guaiFENesin 100 mg/5 ml Syrup UD PO SCH ×4 (10:42→22:00)
[2018-09-05] MEDS ORDERED: Ferric Sodium Gluconat Complex 62.5 mg/5 ml Vial IVPB SCH (12:30)
--- NOTE | 2018-09-05 13:08 | CT ---
Date of service: 09/04/2018 PROCEDURE: CT Abdomen and Pelvis with contrast HISTORY: abd pain COMPARISON: None. TECHNIQUE: Intravenous contrast dose: Radiation dose: Total exam DLP = <inf_radiation_dlp> mGy-cm. This CT exam was performed using one or more of the following dose reduction techniques: Automated exposure control, adjustment of the mA and/or kV according to patient size, and/or use of iterative reconstruction technique. FINDINGS: LOWER THORAX: Unremarkable. LIVER: Unremarkable. No gross lesion or ductal dilatation. GALLBLADDER AND BILE DUCTS: Unremarkable. PANCREAS: Unremarkable. No gross lesion or ductal dilatation. SPLEEN: Unremarkable. ADRENALS: Unremarkable. No mass. KIDNEYS AND URETERS: Unremarkable. No hydronephrosis. No solid mass. VASCULATURE: Atherosclerotic calcification and mural plaque present. Findings are seen throughout the aorta BOWEL: Marked distention of the transverse colon and to lesser extent the ascending colon. No mechanical obstruction or other pathologic process to account for this finding. Non-specific thickening of the wall of the rectum. No discrete, focal lesion. There appear to be small fissures from the lumen to the wall of the rectum. APPENDIX: Normal appendix. PERITONEUM: Unremarkable. No free fluid. No free air. LYMPH NODES: Unremarkable. No enlarged lymph nodes. BLADDER: Unremarkable. REPRODUCTIVE: Unremarkable. BONES: No acute fracture. OTHER FINDINGS: None. IMPRESSION: Thickening of the wall of the rectum, small fissures from the contrast filled rectal cavity to and through the wall. The findings are nonspecific, can be seen with proctitis. Additional benign and/or incidental findings described above.
[2018-09-05] MEDS ORDERED: Peg-Electrolyte Oral Soln 4L (Golytely) PO ONE (13:14)
[2018-09-05] MEDS: Ferric Sodium Gluconat Complex 125 MG in Sodium Chloride 0.9% 100 ML IVPB SCH (13:19)
[2018-09-05] MEDS ORDERED: Bisacodyl 5mg EC Tab PO ONE (16:00)
--- NOTE | 2018-09-05 18:54 | PN ---
DATE: 09/05/2018 SUBJECTIVE: The patient denies any recurrence of rectal bleeding. He denies any chest pain. PHYSICAL EXAMINATION: VITAL SIGNS: Blood pressure 116/71, heart rate 87, temperature 98, respirations 20. HEENT: Pale conjunctivae. CHEST: Minimal rhonchi. HEART: S1 and S2. Regular. EXTREMITIES: No edema. LABORATORY DATA: Today's hemoglobin and hematocrit are 9 and 29.7 with a drop of 0.8 g of hemoglobin since admission. Today's SMA-7: Sodium 134, potassium 4.4, chloride 97, CO2 of 30, glucose 277, BUN 14, and creatinine 0.6. The report of the abdomen and pelvis CT scan shows thickening of the wall of the rectum and small fissures from the contrast filled rectal cavity and through the wall. Findings are nonspecific and can be seen in proctitis. The patient was evaluated by Dr. Black, the superintendent division and the assessment is rectal bleed, history of colon cancer status post resection, ileostomy reversal. His previous colonoscopy was reviewed from 10/2017. Sigmoid anastomosis with friable congestive tissue. Will consider colonoscopy tomorrow based on the clinical picture and inability to follow up as an outpatient due to recurrent hospitalization and clear liquids. ASSESSMENT: 1. Atypical chest pain, myocardial infarction is ruled out. 2. History of recent deep vein thrombosis and pulmonary embolism. 3. Hypertension. 4. Proctitis with rectal bleeding. 5. Uncontrolled diabetes mellitus. RECOMMENDATIONS: Continue Cardizem 60 mg 4 times daily, ferric gluconate infusion, Glucophage 500 mg twice a day, Klor-Con 10 mEq once a day, Protonix 40 mg once a day, Solu-Medrol 30 mg intravenously every 12 hours. Both Eliquis and aspirin are still on hold until the patient is cleared from the GI point of view. Mukesh Correia MD
--- NOTE | 2018-09-05 23:31 | CP.PCM.PN ---
Subjective - Date & Time of Evaluation Date of Evaluation: 09/05/18 Time of Evaluation: 08:00 - Subjective Subjective: dictated Objective - Vital Signs/Intake and Output Vital Signs (last 24 hours): Temp Pulse Resp BP Pulse Ox 98 F 74 20 113/69 98 09/05/18 15:00 09/05/18 17:58 09/05/18 17:58 09/05/18 17:58 09/05/18 17:58 - Medications Medications: Current Medications Albuterol/Ipratropium (Duoneb 3 Mg/0.5 Mg (3 Ml) Ud) 3 ml INH RQ6 [facility] Last Admin: 09/05/18 20:39 Dose: 3 ml Alprazolam (Xanax) 0.5 mg PO Q12 [facility] Last Admin: 09/05/18 22:03 Dose: 0.5 mg Budesonide (Pulmicort Respules) 0.5 mg IH RQ12 [facility] Last Admin: 09/05/18 20:39 Dose: 0.5 mg Diltiazem HCl (Cardizem) 60 mg PO QID [facility] Last Admin: 09/05/18 22:00 Dose: 60 mg Famotidine (Pepcid) 20 mg PO BID [facility] Last Admin: 09/05/18 18:00 Dose: 20 mg Fluticasone/Vilanterol (Breo Ellipta 100-25 Mcg Inh) 1 puff INH RQ24 [facility] Guaifenesin (Robitussin) 200 mg PO QID [facility] Last Admin: 09/05/18 22:00 Dose: 200 mg Ferric Sodium Gluconate Complex 125 mg/ Sodium Chloride 110 mls @ 110 mls/hr IVPB DAILY [facility] Stop: 09/13/18 14:01 Last Admin: 09/05/18 13:19 Dose: 110 mls/hr Insulin Human Regular (Novolin R) 0 unit SC ACHS [facility]; Protocol Last Admin: 09/05/18 22:04 Dose: Not Given Metformin HCl (Glucophage) 500 mg PO BID [facility] Last Admin: 09/05/18 18:00 Dose: 500 mg Methylprednisolone (Solu-Medrol) 30 mg IVP DAILY [facility] Pantoprazole Sodium (Protonix Ec Tab) 40 mg PO DAILY [facility] Last Admin: 09/05/18 10:41 Dose: 40 mg Potassium Chloride (Klor-Con 10) 10 meq PO DAILY [facility] Last Admin: 09/05/18 10:41 Dose: 10 meq Pregabalin (Lyrica) 75 mg PO DAILY [facility] Last Admin: 09/05/18 10:41 Dose: 75 mg Roflumilast (Daliresp) 500 mcg PO DAILY [facility] Last Admin: 09/05/18 10:41 Dose: 500 mcg Sennosides (Senokot Tab) 8.6 mg PO DAILY [facility] Last Admin: 09/05/18 10:41 Dose: 8.6 mg - Labs Labs: 09/05/18 07:00 09/05/18 07:00 PT 14.1 SECONDS (9.7-12.2) H 08/31/18 12:08 INR 1.3 08/31/18 12:08 APTT 36 SECONDS (21-34) H 08/31/18 12:08
[2018-09-06] MEDS: Albuterol-Ipratrop 3 mg / 0.5 (3 ml) UD INH SCH ×4 (01:13→19:10)
--- NOTE | 2018-09-06 04:16 | PN ---
DATE: 09/05/2018 SUBJECTIVE: The patient is not actively bleeding. Now he is feeling better. He had decreased right lower quadrant abdominal pain. The patient had been seen by GI. PHYSICAL EXAMINATION: VITAL SIGNS: Blood pressure 113/61, pulse 74, respiratory rate 20, and temperature 98. LUNGS: Decreased air entry. Positive rhonchi. CARDIOVASCULAR SYSTEM: S1 and S2 regular. ABDOMEN: Soft. ASSESSMENT: 1. Exacerbation of chronic obstructive pulmonary disease. 2. Colon cancer, status post rectal bleed resolved. 3. Allergic rhinitis. 4. Steroid induced diabetes. PLAN: Medical management. Monitor the patient. Hal Garcia MD
[2018-09-06] MEDS: Budesonide 0.5 mg/2 ml Inhal Susp UD IH SCH ×2 (07:27→19:10)
[2018-09-06] MEDS: (Novolin R) Insulin Human Regular 100 units/ml vial SC SCH ×4 (07:43→21:48)
[2018-09-06 07:58] LABS: ALB/GLOB RATIO 1.7 (1.0-2.1); ALBUMIN 3.8 g/dL (3.5-5.0); ALT/SGPT 16 U/L (21-72); AST/SGOT 14 U/L (17-59); BLOOD UREA NITROGEN 13 mg/dL (9-20); CALCIUM 8.8 mg/dl (8.6-10.4); GFR NON-AFRICAN AMERICAN > 60
[2018-09-06] MEDS: MethylPREDNISolone 40 mg Vial IVP SCH (10:23)
[2018-09-06] MEDS: Ferric Sodium Gluconat Complex 125 MG in Sodium Chloride 0.9% 100 ML IVPB SCH (10:24)
[2018-09-06] MEDS: Pantoprazole 40 mg EC Tab PO SCH (10:25)
[2018-09-06] MEDS: guaiFENesin 100 mg/5 ml Syrup UD PO SCH ×4 (10:25→21:48)
[2018-09-06] MEDS: Potassium Chloride 10 mEq ER Tab PO SCH (10:25)
[2018-09-06] MEDS ORDERED: Lactated Ringer's 500 ML IV ONE (11:27)
[2018-09-06] MEDS ORDERED: Etomidate 20 mg/10ml Inj IV ONE (11:39)
[2018-09-06] MEDS ORDERED: Propofol 10 mg/ml Inj (20 ML) ONE ×2 (11:39→12:01)
--- NOTE | 2018-09-06 12:33 | CP.PCM.PN ---
Subjective - Date & Time of Evaluation Date of Evaluation: 09/06/18 Time of Evaluation: 12:30 - Subjective Subjective: Patient seen and examined, resting comfortably in bed. No acute events overnight, no recurrent rectal bleeding noted. s/p colonoscopy today showing ileocolonic and colocolonic anastomosis, poor bowel preparation, internal hemorrhoids. Objective - Vital Signs/Intake and Output Vital Signs (last 24 hours): Temp Pulse Resp BP Pulse Ox 97.4 F L 91 H 20 137/76 98 09/06/18 11:38 09/06/18 11:38 09/06/18 11:38 09/06/18 11:38 09/06/18 11:38 Intake and Output: 09/06/18 09/06/18 06:59 18:59 Intake Total 4250 Balance 4250 - Medications Medications: Current Medications Albuterol/Ipratropium (Duoneb 3 Mg/0.5 Mg (3 Ml) Ud) 3 ml INH RQ6 [facility] Last Admin: 09/06/18 07:25 Dose: 3 ml Alprazolam (Xanax) 0.5 mg PO Q12 [facility] Last Admin: 09/06/18 10:25 Dose: Not Given Budesonide (Pulmicort Respules) 0.5 mg IH RQ12 [facility] Last Admin: 09/06/18 07:27 Dose: 0.5 mg Diltiazem HCl (Cardizem) 60 mg PO QID [facility] Last Admin: 09/06/18 10:22 Dose: 60 mg Famotidine (Pepcid) 20 mg PO BID [facility] Last Admin: 09/06/18 10:25 Dose: Not Given Fluticasone/Vilanterol (Breo Ellipta 100-25 Mcg Inh) 1 puff INH RQ24 [facility] Guaifenesin (Robitussin) 200 mg PO QID [facility] Last Admin: 09/06/18 10:25 Dose: Not Given Hydrocortisone (Anusol-Hc) 25 mg RC BID [facility] Ferric Sodium Gluconate Complex 125 mg/ Sodium Chloride 110 mls @ 110 mls/hr IVPB DAILY [facility] Stop: 09/13/18 14:01 Last Admin: 09/06/18 10:24 Dose: 110 mls/hr Insulin Human Regular (Novolin R) 0 unit SC ACHS [facility]; Protocol Last Admin: 09/06/18 07:43 Dose: Not Given Metformin HCl (Glucophage) 500 mg PO BID [facility] Last Admin: 09/06/18 10:24 Dose: Not Given Methylprednisolone (Solu-Medrol) 30 mg IVP DAILY [facility] Last Admin: 09/06/18 10:23 Dose: 30 mg Pantoprazole Sodium (Protonix Ec Tab) 40 mg PO DAILY [facility] Last Admin: 09/06/18 10:25 Dose: Not Given Potassium Chloride (Klor-Con 10) 10 meq PO DAILY [facility] Last Admin: 09/06/18 10:25 Dose: Not Given Pregabalin (Lyrica) 75 mg PO DAILY [facility] Last Admin: 09/06/18 10:25 Dose: Not Given Roflumilast (Daliresp) 500 mcg PO DAILY [facility] Last Admin: 09/06/18 10:22 Dose: 500 mcg Sennosides (Senokot Tab) 8.6 mg PO DAILY [facility] Last Admin: 09/06/18 10:25 Dose: Not Given - Labs Labs: 09/05/18 07:00 09/06/18 07:27 PT 14.1 SECONDS (9.7-12.2) H 08/31/18 12:08 INR 1.3 08/31/18 12:08 APTT 36 SECONDS (21-34) H 08/31/18 12:08 Assessment and Plan - Assessment and Plan (Free Text) Assessment: COPD History of colon cancer s/p resection with ostomy reversal Rectal bleeding s/p colonoscopy today showing ileocolonic and colocolonic anastomosis, poor bowel preparation, internal hemorrhoids Plan: - Advance diet as tolerated - H/H stable, continue to monitor - Follow up pulmonary recommendations for COPD management - Follow up colonoscopy biopsy results - Patient requires follow up colonoscopy with more optimal bowel preparation within 6 months. No further planned GI intervention, will sign off case. Please reconsult as necessary, thank you.
--- NOTE | 2018-09-06 14:23 | CP.PCM.PN ---
Subjective - Date & Time of Evaluation Date of Evaluation: 09/06/18 Time of Evaluation: 09:20 - Subjective Subjective: Patient seen and examined at bedside. He is breathing well on 4L NC. Denies SOB and cough. He is being followed up by surgery and GI for abdominal pain. Exam: Gen - no acute distress Card - RRR, no murmurs, rubs or gallops Lungs - normal breathing pattern, diminished breath sounds bilaterally, no wheezes, rales or rhonchi GI - abdomen distended, nontender, no rebound, guarding or rigidity A&P: 1. COPD exacerbation - 08/31/18 CXR: minimal left basilar atelectasis - continue Breo Ellipta, Budesonide, Guaifenesin, Roflumilast - taper steroids - stable from pulmonary standpoint 2. Abdominal pain with blood per rectum - 09/04/18 blood per rectum with bowel movement x1 episode - H/H stable, ASA and Eliquis on hold - recommendations as per Surgery and GI Objective - Vital Signs/Intake and Output Vital Signs (last 24 hours): Temp Pulse Resp BP Pulse Ox 98 F 77 16 115/92 H 100 09/06/18 12:30 09/06/18 13:00 09/06/18 13:00 09/06/18 13:00 09/06/18 13:00 Intake and Output: 09/06/18 09/06/18 06:59 18:59 Intake Total 4250 Balance 4250 - Medications Medications: Current Medications Albuterol/Ipratropium (Duoneb 3 Mg/0.5 Mg (3 Ml) Ud) 3 ml INH RQ6 [facility] Last Admin: 09/06/18 13:29 Dose: 3 ml Alprazolam (Xanax) 0.5 mg PO Q12 [facility] Last Admin: 09/06/18 10:25 Dose: Not Given Budesonide (Pulmicort Respules) 0.5 mg IH RQ12 [facility] Last Admin: 09/06/18 07:27 Dose: 0.5 mg Diltiazem HCl (Cardizem) 60 mg PO QID [facility] Last Admin: 09/06/18 13:42 Dose: 60 mg Famotidine (Pepcid) 20 mg PO BID [facility] Last Admin: 09/06/18 10:25 Dose: Not Given Fluticasone/Vilanterol (Breo Ellipta 100-25 Mcg Inh) 1 puff INH RQ24 [facility] Guaifenesin (Robitussin) 200 mg PO QID [facility] Last Admin: 09/06/18 13:42 Dose: 200 mg Hydrocortisone (Anusol-Hc) 25 mg RC BID [facility] Ferric Sodium Gluconate Complex 125 mg/ Sodium Chloride 110 mls @ 110 mls/hr IVPB DAILY [facility] Stop: 09/13/18 14:01 Last Admin: 09/06/18 10:24 Dose: 110 mls/hr Insulin Human Regular (Novolin R) 0 unit SC ACHS [facility]; Protocol Last Admin: 09/06/18 12:00 Dose: Not Given Metformin HCl (Glucophage) 500 mg PO BID [facility] Last Admin: 09/06/18 10:24 Dose: Not Given Methylprednisolone (Solu-Medrol) 30 mg IVP DAILY [facility] Last Admin: 09/06/18 10:23 Dose: 30 mg Pantoprazole Sodium (Protonix Ec Tab) 40 mg PO DAILY [facility] Last Admin: 09/06/18 10:25 Dose: Not Given Potassium Chloride (Klor-Con 10) 10 meq PO DAILY [facility] Last Admin: 09/06/18 10:25 Dose: Not Given Pregabalin (Lyrica) 75 mg PO DAILY [facility] Last Admin: 09/06/18 10:25 Dose: Not Given Roflumilast (Daliresp) 500 mcg PO DAILY [facility] Last Admin: 09/06/18 10:22 Dose: 500 mcg Sennosides (Senokot Tab) 8.6 mg PO DAILY [facility] Last Admin: 09/06/18 10:25 Dose: Not Given - Labs Labs: 09/05/18 07:00 09/06/18 07:27 PT 14.1 SECONDS (9.7-12.2) H 08/31/18 12:08 INR 1.3 08/31/18 12:08 APTT 36 SECONDS (21-34) H 08/31/18 12:08
--- NOTE | 2018-09-06 15:00 | PN ---
DATE: 09/06/2018 SUBJECTIVE: No recurrence of rectal bleeding. No chest pain or shortness of breath. The patient underwent colonoscopy with biopsy and the findings were hemorrhoid. PHYSICAL EXAMINATION: VITAL SIGNS: Blood pressure 115/92, heart rate 77, temperature 98, respirations 16. HEENT: Pale conjunctivae. CHEST: Bilateral rhonchi. HEART: S1, S2 regular. EXTREMITIES: No edema. LABORATORY DATA: SMA-7, sodium 137, potassium 3.9, chloride 101, CO2 of 31, glucose 130, BUN 15, creatinine 0.6. Yesterday hemoglobin and hematocrit were 9.0 and 29.7. ASSESSMENT: 1. Chronic obstructive lung disease. 2. Recent deep vein thrombosis and pulmonary embolus. 3. Internal bleeding, internal hemorrhoids. 4. Hypertension. 5. Uncontrolled diabetes mellitus. RECOMMENDATIONS: Continue Cardizem 60 mg four times a day, ferric gluconate infusion, Glucophage 500 mg twice a day, Solu-Medrol at 30 mg intravenously daily. Resume Eliquis once the patient is cleared from the GI and surgical point of view. Mukesh Correia MD
[2018-09-06 15:57] VITALS: RESP 20
[2018-09-07] MEDS: Albuterol-Ipratrop 3 mg / 0.5 (3 ml) UD INH SCH ×3 (01:30→13:34)
[2018-09-07 01:46] VITALS: O2SAT 98
[2018-09-07] MEDS: (Novolin R) Insulin Human Regular 100 units/ml vial SC SCH ×2 (07:51→11:48)
[2018-09-07] MEDS: Budesonide 0.5 mg/2 ml Inhal Susp UD IH SCH (07:58)
[2018-09-07 08:49] VITALS: BP 117/77; PULSE 76; TEMP 99.7
[2018-09-07] MEDS: guaiFENesin 100 mg/5 ml Syrup UD PO SCH ×2 (09:18→13:39)
[2018-09-07] MEDS: MethylPREDNISolone 40 mg Vial IVP SCH (09:19)
[2018-09-07] MEDS: Pantoprazole 40 mg EC Tab PO SCH (09:19)
[2018-09-07] MEDS: Potassium Chloride 10 mEq ER Tab PO SCH (09:19)
[2018-09-07] MEDS: Ferric Sodium Gluconat Complex 125 MG in Sodium Chloride 0.9% 100 ML IVPB SCH (10:42)
--- NOTE | 2018-09-07 12:19 | CP.PCM.PN ---
Subjective - Date & Time of Evaluation Date of Evaluation: 09/07/18 Time of Evaluation: 12:19 - Subjective Subjective: PATIENT SEEN AND EXAMINED AT THE BEDSIDE Objective - Vital Signs/Intake and Output Vital Signs (last 24 hours): Temp Pulse Resp BP Pulse Ox 99.7 F H 76 20 117/77 98 09/07/18 08:48 09/07/18 08:48 09/07/18 08:48 09/07/18 08:48 09/07/18 08:48 - Medications Medications: Current Medications Albuterol/Ipratropium (Duoneb 3 Mg/0.5 Mg (3 Ml) Ud) 3 ml INH RQ6 [facility] Last Admin: 09/07/18 07:58 Dose: 3 ml Alprazolam (Xanax) 0.5 mg PO Q12 [facility] Last Admin: 09/07/18 09:19 Dose: 0.5 mg Budesonide (Pulmicort Respules) 0.5 mg IH RQ12 [facility] Last Admin: 09/07/18 07:58 Dose: 0.5 mg Diltiazem HCl (Cardizem) 60 mg PO QID [facility] Last Admin: 09/07/18 09:19 Dose: 60 mg Famotidine (Pepcid) 20 mg PO BID [facility] Last Admin: 09/07/18 09:19 Dose: 20 mg Fluticasone/Vilanterol (Breo Ellipta 100-25 Mcg Inh) 1 puff INH RQ24 [facility] Guaifenesin (Robitussin) 200 mg PO QID [facility] Last Admin: 09/07/18 09:18 Dose: 200 mg Hydrocortisone (Anusol-Hc) 25 mg RC BID [facility] Last Admin: 09/07/18 09:19 Dose: 25 mg Ferric Sodium Gluconate Complex 125 mg/ Sodium Chloride 110 mls @ 110 mls/hr IVPB DAILY [facility] Stop: 09/13/18 14:01 Last Admin: 09/07/18 10:42 Dose: 110 mls/hr Insulin Human Regular (Novolin R) 0 unit SC ACHS [facility]; Protocol Last Admin: 09/07/18 11:48 Dose: Not Given Metformin HCl (Glucophage) 500 mg PO BID [facility] Last Admin: 09/07/18 09:19 Dose: 500 mg Methylprednisolone (Solu-Medrol) 30 mg IVP DAILY [facility] Last Admin: 09/07/18 09:19 Dose: 30 mg Pantoprazole Sodium (Protonix Ec Tab) 40 mg PO DAILY [facility] Last Admin: 09/07/18 09:19 Dose: 40 mg Potassium Chloride (Klor-Con 10) 10 meq PO DAILY [facility] Last Admin: 09/07/18 09:19 Dose: 10 meq Pregabalin (Lyrica) 75 mg PO DAILY [facility] Last Admin: 09/07/18 09:19 Dose: 75 mg Roflumilast (Daliresp) 500 mcg PO DAILY [facility] Last Admin: 09/07/18 09:19 Dose: 500 mcg Sennosides (Senokot Tab) 8.6 mg PO DAILY [facility] Last Admin: 09/07/18 09:19 Dose: 8.6 mg - Labs Labs: 09/05/18 07:00 09/06/18 07:27 PT 14.1 SECONDS (9.7-12.2) H 08/31/18 12:08 INR 1.3 08/31/18 12:08 APTT 36 SECONDS (21-34) H 08/31/18 12:08 Assessment and Plan - Assessment and Plan (Free Text) Assessment: FOLLOW UP WITH DR ZHANG IN HIS OFFICE -----CALL FOR APPOINTMENT FOLLOW UP WITH DR BRANDT IN HIS OFFICE -----CALL FOR APPOINTMENT ADDRESS YOUR FOLLOW UP COLONOSCOPY EVERY 6 MONTHS AT YOUR VISIT FOLLOW UP WITH DR MAI IN HIS OFFICE -----CALL FOR APPOINTMENT CONTINUE HOME MEDICATION NEW PRESCRIPTION GIVEN FERROSUL 325 MG PO TID ANUSOL HC 25 MG RC BID SEN[place]OT TAB DAILY PO GUAIFENESIN PO QID PREDNISONE 5 MG PO DAILY ACTIVITY TOLERATED CALL DR ZHANG OR GO TO THE EMERGENCY ROOM IF SYMPTOM RETURN OR WORSENING
--- NOTE | 2018-09-07 18:08 | PN ---
DATE: 09/07/2018 SUBJECTIVE: The patient denies any chest pain, no reported rectal bleeding. PHYSICAL EXAMINATION: VITAL SIGNS: Blood pressure 117/77, heart rate 76, temperature 99.7, and respirations 20. HEENT: Slightly pale conjunctivae. CHEST: Clear. HEART: S1 and S2 regular. EXTREMITIES: No edema. LABORATORY DATA: Today's laboratories, blood sugars are 149 and 145. The EMBEDDED SOFTWARE ENGINEER discussed the case with architectural practice manager who cleared the patient for resumption of Eliquis. I discontinued aspirin. ASSESSMENT: 1. Recent deep vein thrombosis and pulmonary embolism. 2. Atypical chest pain, myocardial infarction is ruled out. The patient is known to have unremarkable coronary arteries on cardiac catheterization two and half years ago. 3. Hypertension. 4. Uncontrolled diabetes mellitus. 5. Internal hemorrhoids bleeding. RECOMMENDATIONS: Continue current Anusol, Cardizem 60 mg four times a day, resume Eliquis 5 mg twice a day, continue Klor-Con 10 mEq once a day, Solu-Medrol 30 mg intravenously daily, and Xanax 0.5 mg twice a day. Mukesh Correia MD
--- NOTE | 2018-09-07 19:11 | CP.PCM.DIS ---
Provider - Provider Date of Admission: 09/02/18 12:53 Attending physician: Hal Garcia MD Consults: 08/31/18 14:41 Cardiology Consult Stat Comment: Consulting Provider: Mukesh Correia Consulting Physician: Mukesh Correia Reason for Consult: acs Pulmonology Consult Stat Comment: Consulting Provider: Ralf Nuno Consulting Physician: Ralf Nuno Reason for Consult: copd 09/03/18 14:12 General Surgery Consult Routine Comment: Consulting Provider: Lucho Nieto Jr. Consulting Physician: Lucho Nieto Jr. Reason for Consult: Pain on abdomen. Recent closure of colostomy site. Time Spent in preparation of Discharge (in minutes): 30 Hospital Course - Lab Results Lab Results: Most Recent Lab Values WBC 7.5 K/uL (4.8-10.8) 09/05/18 07:00 RBC 4.34 Mil/uL (4.40-5.90) L 09/05/18 07:00 Hgb 9.0 g/dL (12.0-18.0) L 09/05/18 07:00 Hct 29.7 % (35.0-51.0) L 09/05/18 07:00 MCV 68.5 fL (80.0-94.0) L 09/05/18 07:00 MCH 20.6 pg (27.0-31.0) L 09/05/18 07:00 MCHC 30.1 g/dL (33.0-37.0) L 09/05/18 07:00 RDW 16.2 % (11.5-14.5) H 09/05/18 07:00 Plt Count 346 K/uL (130-400) 09/05/18 07:00 MPV 8.1 fL (7.2-11.7) 09/05/18 07:00 Neut % (Auto) 88.6 % (50.0-75.0) H 09/05/18 07:00 Lymph % (Auto) 6.6 % (20.0-40.0) L 09/05/18 07:00 Clark % (Auto) 4.8 % (0.0-10.0) 09/05/18 07:00 Eos % (Auto) 0.0 % (0.0-4.0) 09/05/18 07:00 Baso % (Auto) 0.0 % (0.0-2.0) 09/05/18 07:00 Neut # (Auto) 6.6 K/uL (1.8-7.0) 09/05/18 07:00 Lymph # (Auto) 0.5 K/uL (1.0-4.3) L 09/05/18 07:00 Clark # (Auto) 0.4 K/uL (0.0-0.8) 09/05/18 07:00 Eos # (Auto) 0.0 K/uL (0.0-0.7) 09/05/18 07:00 Baso # (Auto) 0.0 K/uL (0.0-0.2) 09/05/18 07:00 Neutrophils % (Manual) 91 % (50-75) H 09/05/18 07:00 Lymphocytes % (Manual) 6 % (20-40) L 09/05/18 07:00 Monocytes % (Manual) 3 % (0-10) 09/05/18 07:00 Platelet Estimate Normal (NORMAL) 09/05/18 07:00 Hypochromasia (manual) Slight 09/05/18 07:00 Poikilocytosis (manual Slight 09/05/18 07:00 Anisocytosis (manual) Slight 09/05/18 07:00 Tear Drop Cells Slight 09/05/18 07:00 Ovalocytes Slight 09/05/18 07:00 PT 14.1 SECONDS (9.7-12.2) H 08/31/18 12:08 INR 1.3 08/31/18 12:08 APTT 36 SECONDS (21-34) H 08/31/18 12:08 D-Dimer, Quantitative 387 ng/mlDDU (0-243) H 09/01/18 03:05 Puncture Site Rr 08/31/18 12:10 pCO2 44 mm/Hg (35-45) 08/31/18 12:10 pO2 50 mm/Hg (80-100) L 08/31/18 12:10 HCO3 29.4 mmol/L (21-28) H 08/31/18 12:10 ABG pH 7.45 (7.35-7.45) 08/31/18 12:10 ABG Total CO2 32.0 mmol/L (22-28) H 08/31/18 12:10 ABG O2 Saturation 84.9 % (95-98) L 08/31/18 12:10 ABG Base Excess 6.0 mmol/L (-2.0-3.0) H 08/31/18 12:10 ABG Hemoglobin 9.2 g/dL (11.7-17.4) L 08/31/18 12:10 ABG Carboxyhemoglobin 0 % (0.5-1.5) L 08/31/18 12:10 POC ABG HHb (Measured) 15.1 % (0.0-5.0) H 08/31/18 12:10 ABG Methemoglobin 0.0 % (0.0-3.0) 08/31/18 12:10 Jesus Test Pos 08/31/18 12:10 Hgb O2 Saturation 84.9 % (95.0-98.0) L 08/31/18 12:10 Liter Flow 3.0 08/31/18 12:10 Sodium 137 mmol/L (132-148) 09/06/18 07:27 Potassium 3.9 mmol/L (3.6-5.2) 09/06/18 07:27 Chloride 101 mmol/L (98-107) 09/06/18 07:27 Carbon Dioxide 31 mmol/L (22-30) H 09/06/18 07:27 Anion Gap 9 (10-20) L 09/06/18 07:27 BUN 13 mg/dL (9-20) 09/06/18 07:27 Creatinine 0.6 mg/dL (0.8-1.5) L 09/06/18 07:27 Est GFR ( Amer) > 60 09/06/18 07:27 Est GFR (Non-Af Amer) > 60 09/06/18 07:27 POC Glucose (mg/dL) 145 mg/dL (65-110) H 09/07/18 11:24 Random Glucose 130 mg/dL (75-110) H D 09/06/18 07:27 Calcium 8.8 mg/dl (8.6-10.4) 09/06/18 07:27 Phosphorus 3.2 mg/dL (2.5-4.5) 09/06/18 07:27 Magnesium 2.3 mg/dL (1.6-2.3) 09/06/18 07:27 Total Bilirubin 0.3 mg/dL (0.2-1.3) 09/06/18 07:27 AST 14 U/L (17-59) L D 09/06/18 07:27 ALT 16 U/L (21-72) L 09/06/18 07:27 Alkaline Phosphatase 85 U/L (38-126) 09/06/18 07:27 Total Creatine Kinase 112 U/L (55-170) 09/01/18 03:05 CK-MB (Mass) 1.50 ng/mL (0.0-3.38) 09/01/18 03:05 Troponin I < 0.0120 ng/mL (0.00-0.120) 09/01/18 03:05 NT-Pro-B Natriuret Pep 39.0 pg/mL (0-900) 08/31/18 12:08 Total Protein 6.0 g/dL (6.3-8.3) L 09/06/18 07:27 Albumin 3.8 g/dL (3.5-5.0) 09/06/18 07:27 Globulin 2.3 gm/dL (2.2-3.9) 09/06/18 07:27 Albumin/Globulin Ratio 1.7 (1.0-2.1) 09/06/18 07:27 Discharge Exam - Head Exam Head Exam: NORMAL INSPECTION Discharge Plan - Discharge Medications Prescriptions: Hydrocortisone [Anusol-Hc] 25 mg RC BID 30 Days sup Ferrous Sulfate [Ferosul] 325 mg PO TID 30 Days tablet Prednisone 5 mg PO DAILY 30 Days tab.ds.pk guaiFENesin [Robitussin] 100 mg PO QID 30 Days dose Sennosides A and B [Senokot Tab] 8.6 mg PO DAILY 30 Days tab - Follow Up Plan Condition: GOOD Disposition: HOME/ ROUTINE Instructions: Heart Healthy Diet, Heart Failure, Adult (DC), Hydrocortisone (Topical), Chest Pain (DC), Exacerbation of COPD (DC), Ferrous Sulfate, Guaifenesin, Prednisone, Senna Additional Instructions: FOLLOW UP WITH DR GARCIA IN HIS OFFICE -----CALL FOR APPOINTMENT FOLLOW UP WITH DR BLACK IN HIS OFFICE -----CALL FOR APPOINTMENT ADDRESS YOUR FOLLOW UP COLONOSCOPY EVERY 6 MONTHS AT YOUR VISIT FOLLOW UP WITH DR CORREIA IN HIS OFFICE -----CALL FOR APPOINTMENT CONTINUE HOME MEDICATION NEW PRESCRIPTION GIVEN FERROSUL 325 MG PO TID ANUSOL HC 25 MG RC BID SENOKOT TAB DAILY PO GUAIFENESIN PO QID PREDNISONE 5 MG PO DAILY ACTIVITY TOLERATED CALL DR GARCIA OR GO TO THE EMERGENCY ROOM IF SYMPTOM RETURN OR WORSENING Referrals: Ralf Nuno MD [Staff Provider] - Mukesh Correia MD [Staff Provider] - Adrián Black MD [Staff Provider] - Hal Garcia MD [Staff Provider] -
--- NOTE | 2018-09-08 00:45 | PN ---
DATE: 09/07/2018 SUBJECTIVE: The patient is not actively bleeding. He feels much better. He is not short of breath. His steroids are being tapered. He has less cough, less shortness of breath, less sugar. No nausea or vomiting. His abdominal pain has been resolved. PHYSICAL EXAMINATION: VITAL SIGNS: Blood pressure 120/70, pulse 106, respiratory rate 20, and temperature 97.9. LUNGS: Bilaterally decreased air entry. Positive rhonchi. CVS: S1 and S2. Regular. ABDOMEN: Soft, nontender. Bowel sounds are positive. ASSESSMENT: 1. Status post gastrointestinal bleed, resolved. 2. Exacerbation of chronic obstructive pulmonary disease. 3. Steroid-induced diabetes. 4. Allergic rhinitis. PLAN: Medical management. The patient is for discharge tomorrow. Hal Garcia MD
--- NOTE | 2018-09-08 19:50 | DS ---
DISCHARGE DIAGNOSES: 1. Exacerbation of chronic obstructive pulmonary disease. 2. Noncoronary chest pain. 3. Rectal bleeding of unknown etiology. 4. Steroid-induced diabetes mellitus. HISTORY OF PRESENT ILLNESS: This is a 68-year-old male, well known to me with a history of diabetes due to steroids, advanced end-stage COPD, allergic rhinitis, anxiety, colorectal cancer status post resection. The patient remained in full remission, came in because of cough, congestion, shortness of breath, wheezing, chest pain, and the patient was started on Solu-Medrol, oxygen. Cardiac enzymes x3 were negative. EKG was negative. Seen by Cardiology. Later on, the patient also developed right lower quadrant pain and rectal bleeding. GI saw the patient. Workup is negative. Diet has been proceeded and the patient is feeling better and he is for discharge. CONDITION UPON DISCHARGE: Stable. LABORATORY DATA: Sodium 137, potassium 3.9, chloride 101, bicarb 31, BUN 13, creatinine 0.6. WBC 7.4, hemoglobin 9, hematocrit 29.7, and platelet 346. PT/PTT normal. ABG showed pH of 7.45, pCO2 44, pO2 50, bicarb 29, saturation 94.9. The patient is feeling better. PHYSICAL EXAMINATION: VITAL SIGNS: Blood pressure 117/77, pulse 76, respiratory rate 20, and temperature 99.3. Hal Garcia MD
== END 2018-09-07 14:30 | disposition home or self-care (01) | DRG 191 ==
LOC: C.ER 11:25 → C.9E 13:20 → C.6T 15:42 → OBSVTOIN 09-02 12:53
PROVIDERS: ADMIT Internal Medicine; ATTEND Internal Medicine
PROC: 0DBB8ZX Excision of Ileum, Via Natural or Artificial Opening Endoscopic, Diagnostic (ICD-10-PCS; principal; 2018-09-06 11:40)
DX: J44.1 Chronic obstructive pulmonary disease with (acute) exacerbation (principal); I13.0 Hypertensive heart and chronic kidney disease with heart failure and stage 1 through stage 4 chronic kidney disease, or unspecified chronic kidney disease; K92.2 Gastrointestinal hemorrhage, unspecified; I50.9 Heart failure, unspecified; N18.9 Chronic kidney disease, unspecified; E11.22 Type 2 diabetes mellitus with diabetic chronic kidney disease; E78.00 Pure hypercholesterolemia, unspecified; F41.1 Generalized anxiety disorder; G47.30 Sleep apnea, unspecified; G89.29 Other chronic pain; R07.2 Precordial pain; R09.89 Other specified symptoms and signs involving the circulatory and respiratory systems; K59.00 Constipation, unspecified; R10.9 Unspecified abdominal pain; E11.40 Type 2 diabetes mellitus with diabetic neuropathy, unspecified; K21.9 Gastro-esophageal reflux disease without esophagitis; T38.0X5A Adverse effect of glucocorticoids and synthetic analogues, initial encounter; E11.65 Type 2 diabetes mellitus with hyperglycemia; M25.559 Pain in unspecified hip; M54.9 Dorsalgia, unspecified; K64.1 Second degree hemorrhoids; Z86.711 Personal history of pulmonary embolism; Z99.81 Dependence on supplemental oxygen; Z86.718 Personal history of other venous thrombosis and embolism; Z87.891 Personal history of nicotine dependence; Z79.01 Long term (current) use of anticoagulants; Z85.048 Personal history of other malignant neoplasm of rectum, rectosigmoid junction, and anus; Z87.01 Personal history of pneumonia (recurrent); Z90.49 Acquired absence of other specified parts of digestive tract

== ENCOUNTER 2018-11-02 13:57 | Inpatient (IN) | payer MEDICARE, BC ==
[2018-11-02 13:58] VITALS: BMI 22.8
--- NOTE | 2018-11-02 14:25 | C.PDOC ---
History Of Present Illness 68 year old male with PMHx of COPD, HPT, asthma, diabetes, emphysema, renal disease, and kidney stones presents with his for evaluation of chest pain and difficulty breathing for 1 week. Pts notes steady decline in health; not getting out of bed, unsteady on his feet, and decrease in PO intake. More recently shes noticed the pt has ashy/pallor skin and poorly responsive, not his baseline. The patient complains of abdominal pain at the site of surgery, chest pain, and difficulty breathing. Abdominal pain is chronic and ongoing since colostomy. He notes the chest pain started yesterday associated with dizziness, shortness of breath, and weakness. denies fever, chills, nausea, vomiting, diarrhea, constipation and any other associated symptoms. Time Seen by Provider: 11/02/18 14:01 Chief Complaint (Nursing): Chest Pain History Per: Patient History/Exam Limitations: no limitations Onset/Duration Of Symptoms: Days Current Symptoms Are (Timing): Still Present Associated Symptoms: denies: Nausea Recent travel outside of the [place]: No Past Medical History Reviewed: Historical Data, Nursing Documentation, Vital Signs Vital Signs: Last Vital Signs Temp 98.1 F 11/02/18 13:59 Pulse 107 H 11/02/18 13:59 Resp 15 11/02/18 13:59 BP 115/73 11/02/18 13:59 Pulse Ox 98 11/02/18 13:59 - Medical History PMH: Anemia, Anxiety, Arthritis, Asthma, Bronchitis, Cardia Arrhythmia (SVT), CHF, COPD, Diabetes, Emphysema, HTN, Hypercholesterolemia, Kidney Stones, Pneumonia, Chronic Kidney Disease, Sleep Apnea (ON DALIRESP) Denies: Fractures, Gastritis Surgical History: Endoscopy - [facility] Procedures ASSISTANCE WITH RESPIRATORY VENTILATION, 24-96 HRS, CPAP (04/01/18) ASSISTANCE WITH RESPIRATORY VENTILATION, <24 HRS, CPAP (11/14/17) ASSISTANCE WITH RESPIRATORY VENTILATION, >96 HRS, CPAP (04/26/18) BYPASS ILEUM TO CUTANEOUS, OPEN APPROACH (04/26/18) CONTINUOUS INVASIVE MECHANICAL VENTILATION <96 CONSEC HRS (11/29/14) DILATION OF RIGHT URETER WITH INTRALUMINAL DEVICE, ENDO (03/20/17) DRAINAGE OF BLADDER WITH DRAINAGE DEVICE, VIA OPENING (12/04/17) DRAINAGE OF RECTUM, PERCUTANEOUS APPROACH (12/04/17) EXCISION OF ILEUM, ENDO, DIAGN (09/02/18) EXCISION OF ILEUM, OPEN APPROACH (04/26/18) EXCISION OF SIGMOID COLON, ENDO, DIAGN (03/20/17) EXCISION OF STOMACH, ENDO, DIAGN (03/20/17) EXCISION OF TRANSVERSE COLON, ENDO, DIAGN (03/20/17) INFLUENZA VACCINATION (06/02/14) INSERT ENDOTRACHEAL TUBE (11/29/14) INSERTION OF INFUSION DEV INTO SUP VENA CAVA, PERC APPROACH (01/26/18) INSERTION OF INTRALUM DEV INTO INF VENA CAVA, PERC APPROACH (03/06/18) LARYGNOSCOPY AND OTH TRACHEOSCOPY (04/18/15) MEASURE OF CARDIAC SAMPL & PRESSURE, L HEART, PERC APPROACH (12/01/15) NON-INVASIVE MECHANICAL VENTILATION (04/18/15) RESECTION OF APPENDIX, OPEN APPROACH (04/26/18) RESECTION OF SIGMOID COLON, OPEN APPROACH (03/20/17) RESPIRATORY VENTILATION, GREATER THAN 96 CONSECUTIVE HOURS (03/20/17) Family History: States: Unknown Family Hx - Social History Hx Tobacco Use: Yes (8 years ppd smoker. quit 1.5 years ago) Hx Alcohol Use: No Hx Substance Use: No - Immunization History Hx Tetanus Toxoid Vaccination: No Hx Influenza Vaccination: Yes (2017) Hx Pneumococcal Vaccination: Yes Review Of Systems Except As Marked, All Systems Reviewed And Found Negative. Constitutional: Positive for: Weakness (generalized. ), Other ((+) unsteady on his feet. (+) decrease in PO intake. ). Negative for: Fever, Chills Cardiovascular: Positive for: Chest Pain Respiratory: Positive for: Shortness of Breath Gastrointestinal: Positive for: Abdominal Pain (at the sight of colostomy. ). Negative for: Nausea, Vomiting, Diarrhea, Constipation Skin: Positive for: Other (ashy and pallor. ) Neurological: Positive for: Dizziness Physical Exam - Physical Exam Appears: Chronically Ill, Other ((+) groggy. eyes closed during PE. ) Skin: Dry, Pale Head: Atraumatic, Normacephalic Eye(s): bilateral: Normal Inspection Oral Mucosa: Moist Neck: Normal ROM, Supple Chest: Symmetrical, No Deformity Cardiovascular: Rhythm Regular, No Murmur Respiratory: No Rales, No Rhonchi, No Wheezing, Other ((+) tight with diffuse wheezing throughout.) Gastrointestinal/Abdominal: Normal Exam, Soft, No Tenderness Extremity: Bilateral: Atraumatic, Normal Color And Temperature, Normal ROM Neurological/Psych: Oriented x3, Normal Speech, Normal Cognition ED Course And Treatment - Laboratory Results Result Diagrams: 11/02/18 14:41 11/02/18 14:41 O2 Sat by Pulse Oximetry: 98 (RA) Pulse Ox Interpretation: Normal - Other Rad CXR X-Ray: Viewed By Me, Read By Radiologist Interpretation: FINDINGS: LUNGS: Clear. PLEURA: No pneumothorax or pleural fluid seen. CARDIOVASCULAR: No aortic atherosclerotic calcification present. Normal. OSSEOUS STRUCTURES: No significant abnormalities. VISUALIZED UPPER ABDOMEN: Normal. OTHER FINDINGS: None. IMPRESSION: No active disease. Medical Decision Making Medical Decision Making: Initial plan: -EKG -Blood sent. -CXR -Solu-medrol Disposition Discussed With DrKathya: Hal Garcia Counseled Patient/Family Regarding: Diagnosis, Need For Followup - Disposition Disposition: HOSPITALIZED Disposition Time: 15:55 Condition: GUARDED - Clinical Impression Clinical Impression: COPD exacerbation - Scribe Statement The provider has reviewed the documentation as recorded by the Scribe (Najma Sosa) Provider Attestation: All medical record entries made by the Scribe were at my direction and personally dictated by me. I have reviewed the chart and agree that the record accurately reflects my personal performance of the history, physical exam, medical decision making, and the department course for this patient. I have also personally directed, reviewed, and agree with the discharge instructions and disposition.
[2018-11-02 14:44] LABS: BASO # 0.1 K/uL (0.0-0.2); BASO % 0.7 % (0.0-2.0); EOS # 0.6 K/uL (0.0-0.7); EOS % 6.1 % (0.0-4.0); HEMOGLOBIN 10.6 g/dL (12.0-18.0); LYMPH # 1.4 K/uL (1.0-4.3); LYMPH % 14.9 % (20.0-40.0); MEAN CELL VOLUME 67.7 fL (80.0-94.0); MEAN CORPUSCULAR HEMOGLOBIN 21.5 pg (27.0-31.0); MEAN CORPUSCULAR HGB CONC 31.7 g/dL (33.0-37.0); MEAN PLATELET VOLUME 8.8 fL (7.2-11.7); MONO # 0.8 K/uL (0.0-0.8); MONO % 8.4 % (0.0-10.0); NEUT # 6.6 K/uL (1.8-7.0); NEUT % 69.9 % (50.0-75.0); NRBC % 0.1 % (0.0-2.0); RBC 4.96 Mil/uL (4.40-5.90); RED CELL DISTRIBUTION WIDTH 19.6 % (11.5-14.5); WHITE BLOOD COUNT 9.5 K/uL (4.8-10.8)
[2018-11-02] MEDS ORDERED: Albuterol-Ipratrop 3 mg / 0.5 (3 ml) UD ONE (14:52)
--- NOTE | 2018-11-02 14:57 | RAD ---
Date of service: 11/02/2018 PROCEDURE: CHEST RADIOGRAPH, 1 VIEW HISTORY: SOB COMPARISON: 08/31/2018 FINDINGS: LUNGS: Clear. PLEURA: No pneumothorax or pleural fluid seen. CARDIOVASCULAR: No aortic atherosclerotic calcification present. Normal. OSSEOUS STRUCTURES: No significant abnormalities. VISUALIZED UPPER ABDOMEN: Normal. OTHER FINDINGS: None. IMPRESSION: No active disease.
[2018-11-02 15:03] LABS: ALB/GLOB RATIO 1.5 (1.0-2.1); ALBUMIN 4.2 g/dL (3.5-5.0); ALT/SGPT 17 U/L (21-72); AST/SGOT 19 U/L (17-59); BLOOD UREA NITROGEN 8 mg/dL (9-20); CALCIUM 9.7 mg/dl (8.6-10.4); GFR NON-AFRICAN AMERICAN > 60
[2018-11-02 15:11] LABS: B-TYPE NATRIURETIC PEPTIDE 43.3 pg/mL (0-900)
[2018-11-02] MEDS: Albuterol-Ipratrop 3 mg / 0.5 (3 ml) UD IH SCH (15:35)
--- NOTE | 2018-11-02 19:06 | CP.PCM.HP ---
Present on Admission - Present on Admission Any Indicators Present on Admission: Yes History of DVT/PE: Yes History of Uncontrolled Diabetes: Yes Past Patient History - Infectious Disease Hx of Infectious Diseases: None - Past Medical History & Family History Past Medical History?: Yes - Past Social History Smoking Status: Former Smoker - CARDIAC Hx Cardia Arrhythmia: Yes (SVT) Hx Congestive Heart Failure: Yes Hx Hypercholesterolemia: Yes Hx Hypertension: Yes - PULMONARY Hx Asthma: Yes Hx Bronchitis: Yes Hx Chronic Obstructive Pulmonary Disease (COPD): Yes Hx Emphysema: Yes Hx Pneumonia: Yes Hx Sleep Apnea: Yes (ON DALIRESP) - NEUROLOGICAL Hx Neurological Disorder: No HX Cerebrovascular Accident: No - HEENT Hx HEENT Problems: Yes Hx Cataracts: Yes - RENAL Hx Chronic Kidney Disease: Yes Hx Kidney Stones: Yes - ENDOCRINE/METABOLIC Hx Endocrine Disorders: Yes Hx Diabetes Mellitus Type 2: Yes - HEMATOLOGICAL/ONCOLOGICAL Hx Anemia: Yes - INTEGUMENTARY Hx Dermatological Problems: Yes (SEE COMMENT) Other/Comment: Scattered ecchymosis on both arms. - MUSCULOSKELETAL/RHEUMATOLOGICAL Hx Arthritis: Yes Hx Fractures: No - GASTROINTESTINAL Hx Gastritis: No - PSYCHIATRIC Hx Anxiety: Yes Hx Substance Use: No - SURGICAL HISTORY Hx Surgeries: Yes (SEE COMMENT) Hx Cataract Extraction: Yes (left eye, right eye) Hx Cardiac Catheterization: Yes (11/2015) Hx Eye Surgery: Yes Hx Pulmonary Surgery: Yes Other/Comment: colon resection with right ileostomy - ANESTHESIA Hx Anesthesia: Yes Hx Anesthesia Reactions: No Hx Malignant Hyperthermia: No Meds Allergies/Adverse Reactions: Allergies Allergy/AdvReac Type Severity Reaction Status Date / Time acetaminophen [From Tylenol] Allergy RASH Verified 11/02/18 14:00 FISH Allergy SWELLING Verified 11/02/18 14:00 shrimp Allergy SHORTNESS Verified 11/02/18 14:00 OF BREATH IV dye Allergy Severe ANAPHYLAXIS Uncoded 11/02/18 14:00 Results - Vital Signs Recent Vital Signs: Last Vital Signs Temp 98.1 F 11/02/18 13:59 Pulse 95 H 11/02/18 16:53 Resp 20 11/02/18 16:53 BP 106/64 11/02/18 16:53 Pulse Ox 97 11/02/18 16:53 - Labs Result Diagrams: 11/02/18 14:41 11/02/18 14:41 Labs: Laboratory Results - last 24 hr 11/02/18 11/02/18 11/02/18 14:41 14:41 17:51 WBC 9.5 RBC 4.96 Hgb 10.6 L Hct 33.6 L MCV 67.7 L MCH 21.5 L MCHC 31.7 L RDW 19.6 H Plt Count 289 MPV 8.8 Neut % (Auto) 69.9 Lymph % (Auto) 14.9 L [place] % (Auto) 8.4 Eos % (Auto) 6.1 H Baso % (Auto) 0.7 Neut # (Auto) 6.6 Lymph # (Auto) 1.4 [place] # (Auto) 0.8 Eos # (Auto) 0.6 Baso # (Auto) 0.1 Sodium 140 Potassium 3.2 L Chloride 97 L Carbon Dioxide 35 H Anion Gap 12 BUN 8 L Creatinine 0.6 L Est GFR ( Amer) > 60 Est GFR (Non-Af Amer) > 60 POC Glucose (mg/dL) 239 H Random Glucose 199 H D Calcium 9.7 Total Bilirubin 0.3 AST 19 ALT 17 L Alkaline Phosphatase 122 Troponin I < 0.0120 NT-Pro-B Natriuret Pep 43.3 Total Protein 7.1 Albumin 4.2 Globulin 2.9 Albumin/Globulin Ratio 1.5
[2018-11-02] MEDS: Sodium Chloride 0.9% 1,000 ML IV SCH (19:12)
[2018-11-02] MEDS ORDERED: Oxycodone/Acetaminophen 5/325 mg Tab PO SCH (20:00)
[2018-11-02] MEDS ORDERED: Oxycodone/Acetaminophen 5/325 mg Tab PO PRN (20:30)
[2018-11-02] MEDS: Budesonide 0.5 mg/2 ml Inhal Susp UD IH SCH (20:35)
[2018-11-02] MEDS: guaiFENesin 100 mg/5 ml Syrup UD PO SCH (21:50)
[2018-11-02] MEDS: (Novolin R) Insulin Human Regular 100 units/ml vial SC SCH (22:09)
[2018-11-03] MEDS ORDERED: Albuterol HFA 90 mcg/actuation (8 g) IH PRN
--- NOTE | 2018-11-03 04:55 | HP ---
CHIEF COMPLAINT: Weakness and right upper chest pain x1 day. HISTORY OF PRESENT ILLNESS: This is a 68-year-old male, well known to me with history of severe, advanced COPD. He has multiple hospitalizations. He is ex-smoker, non-ETOH user. He has steroid-induced diabetes, sinus tachycardia, allergy and anxiety disorder. He is in his usual status of health, is home bound and he is fully dependent on family member for activities of daily living. He is able to ambulate. He is on now home oxygen, home nebulizer and home BiPAP. According to the family for last sometime, he is not feeling well. He is weak, tired, fatigued. He is having right upper chest wall pain, which is positional, worsened with movement, not associated with diaphoresis, dizziness. He denies any injury to his right chest wall. He is coughing. He is wheezing. He is short of breath, both at rest as well as with exertion. There is no history of nausea, vomiting, diarrhea. He has generalized weakness, tiredness, anoxia, malaise and fatigue. He looks sick. He feels sick. He denies any joint pain, hip pain, back pain. He denies any history of head injury, fall, loss of consciousness, seizure-like activity. He denies any history of tingling, numbness, paresthesias. He denies any history of polyuria, polydipsia, polyphagia. He denies any history of hematuria, pyuria. The patient has nasal congestion, rhinorrhea. He denies any joint pain. He has easy bruisability. He has weakness and he is coughing. He denied any sputum production. ALLERGIES: SHRIMP, FISH, IV DYE AND TYLENOL. SOCIAL HISTORY: Ex-smoker, non-ETOH user. CURRENT MEDICATION: At home, he is on Brovana, metformin, Breo Ellipta, Cardizem, Daliresp, Eliquis, Feosol, multivitamin, K-Dur, Lyrica, Protonix, Robitussin, Pulmicort. PHYSICAL EXAMINATION: GENERAL: Elderly male who looks weak, sick, tired. VITAL SIGNS: Blood pressure 109/68, pulse 94, respiratory rate is 20, temperature 99.6. SKIN: Mild turgor, thin, easy bruisability. HEENT: Atraumatic and normocephalic. Positive pallor. Negative jaundice. Extraocular movements are intact. ORAL MUCOSA: Dry with poor turgor and poor oral hygiene. NECK: Supple. Using accessory muscles. Negative JVD. Negative thyromegaly. Negative carotid bruit. CHEST WALL: Bilateral symmetrical. No nipple discharge. No retraction of intercostal spaces. LUNGS: Bilateral inspiratory-expiratory rhonchi all over the lung filed with decreased air entry all over the lung filed. CARDIOVASCULAR SYSTEM: PMI in the fifth intercostal space. S1 and S2 regular. Tachycardic. ABDOMEN: Soft and nontender. Bowel sounds are positive. RECTAL: Enlarged prostate. EXTREMITIES: No clubbing, cyanosis, or edema. CENTRAL NERVOUS SYSTEM: Awake, alert, and oriented x3. Cranial nerves II through XII are normal. Power 5/5 x4. Plantars are downgoing. ASSESSMENT: 1. Dehydration, prerenal azotemia with low potassium. 2. Anemia. The patient has colon cancer with possibility of gastritis and gastrointestinal losses. 3. Chronic obstructive pulmonary disease exacerbation. 4. Steroid-induced diabetes. PLAN: Admit. Detailed orders are written. The patient has been seen and examined. Hal Garcia MD
[2018-11-03] MEDS: Sodium Chloride 0.9% 1,000 ML IV SCH ×2 (05:19→17:21)
[2018-11-03] MEDS: (Novolin R) Insulin Human Regular 100 units/ml vial SC SCH ×4 (07:29→21:44)
[2018-11-03] MEDS ORDERED: Fluticasone-Vilanterol 100/25mcg Diskus INH SCH (08:00)
[2018-11-03] MEDS: Budesonide 0.5 mg/2 ml Inhal Susp UD IH SCH ×2 (08:16→19:04)
[2018-11-03] MEDS: guaiFENesin 100 mg/5 ml Syrup UD PO SCH ×4 (09:47→22:07)
[2018-11-03] MEDS: Potassium Chloride 10 mEq ER Tab PO SCH (09:48)
[2018-11-03] MEDS: Multiple Vitamins Tab PO SCH (09:48)
[2018-11-03] MEDS: Pantoprazole 40 mg EC Tab PO SCH (09:48)
[2018-11-03] MEDS ORDERED: Enoxaparin 40 mg Syringe SC SCH (10:00)
[2018-11-03] MEDS: Ferric Sodium Gluconat Complex 62.5 mg/5 ml Vial IVPB SCH (10:19)
--- NOTE | 2018-11-03 13:25 | CP.PCM.CON ---
History of Present Illness - History of Present Illness History of Present Illness: Pulmonary Consult, Covering Dr Nuno The Patient was seen and examined at the bedside, Medical records reviewed, and management issues were discussed and formulated with the house staff. Events reviewed 68 Years old former heavy smoker M (Quit 6 years ago) with PMHx of COPD/asthma, diabetes, emphysema, renal disease, kidney stones and COPD with frequent exacerbations "requiring" multiple hospitalization Who presents to the ER with his for evaluation of chest pain and difficulty breathing for 1 week. Pts notes steady decline in health; not getting out of bed, unsteady on his feet, and decrease in PO intake. Of note, Recently Admitted with Abdominal pain sec to [facility], and he complains of chronic abdominal pain at the site of surgery, chest pain, and difficulty breathing. denies fever, chills, nausea, vomiting, diarrhea, constipation and any other associated symptoms. PMHx: COPD (Emphysema), Asthma, Bronchitis, arthritis, steroid-induced DM, sleep apnea, colon cancer, Anemia, Anxiety, Arthritis (BACK), Cardia Arrhythmia (SVT), CHF, HTN, Hypercholesterolemia, Kidney Stones, Pneumonia and Chronic Kidney Disease PSH: sigmoid anastamosis, endoscopy 11/07, cataract repair Home Meds: duonebs, 10mg prednisone PO QD, roflumilast, Allergies: acetaminophen, fish, shrimp, IV dye SH: 8 pack-year tobacco habit quit 1.5 years ago, quit alcohol 15 years ago, no drug use Patient awake, comfortable, he has some shortness of breath and wheezing noted on Exam Patient feeling slightly better today + Shortness of Breath, SOB with minimal Excertion No chest pain, Afebrile + wheezing on Exam Patient on BIPAP overnight 1. COPD - Will start IV Solumedrol today 60 mg IV Q 8H - Saturating 97%, Continue BiPAP as needed and at night - CXR No new infilterate - duonebs - singulair - Advair Past Patient History - Infectious Disease Hx of Infectious Diseases: None - Past Medical History & Family History Past Medical History?: Yes - Past Social History Smoking Status: Former Smoker - CARDIAC Hx Cardia Arrhythmia: Yes (SVT) Hx Congestive Heart Failure: Yes Hx Hypercholesterolemia: Yes Hx Hypertension: Yes - PULMONARY Hx Asthma: Yes Hx Bronchitis: Yes Hx Chronic Obstructive Pulmonary Disease (COPD): Yes Hx Emphysema: Yes Hx Pneumonia: Yes Hx Sleep Apnea: Yes (ON DALIRESP) - NEUROLOGICAL Hx Neurological Disorder: No HX Cerebrovascular Accident: No - HEENT Hx HEENT Problems: Yes Hx Cataracts: Yes - RENAL Hx Chronic Kidney Disease: Yes Hx Kidney Stones: Yes - ENDOCRINE/METABOLIC Hx Endocrine Disorders: Yes Hx Diabetes Mellitus Type 2: Yes - HEMATOLOGICAL/ONCOLOGICAL Hx Anemia: Yes - INTEGUMENTARY Hx Dermatological Problems: Yes (SEE COMMENT) Other/Comment: Scattered ecchymosis on both arms. - MUSCULOSKELETAL/RHEUMATOLOGICAL Hx Arthritis: Yes Hx Fractures: No - GASTROINTESTINAL Hx Gastritis: No - PSYCHIATRIC Hx Anxiety: Yes Hx Substance Use: No - SURGICAL HISTORY Hx Surgeries: Yes (SEE COMMENT) Hx Cataract Extraction: Yes (left eye, right eye) Hx Cardiac Catheterization: Yes (11/2015) Hx Eye Surgery: Yes Hx Pulmonary Surgery: Yes Other/Comment: colon resection with right ileostomy - ANESTHESIA Hx Anesthesia: Yes Hx Anesthesia Reactions: No Hx Malignant Hyperthermia: No Meds Allergies/Adverse Reactions: Allergies Allergy/AdvReac Type Severity Reaction Status Date / Time acetaminophen [From Tylenol] Allergy RASH Verified 11/02/18 14:00 FISH Allergy SWELLING Verified 11/02/18 14:00 shrimp Allergy SHORTNESS Verified 11/02/18 14:00 OF BREATH IV dye Allergy Severe ANAPHYLAXIS Uncoded 11/02/18 14:00 - Medications Medications: Current Medications Albuterol (Ventolin Hfa 90 Mcg/Actuation (8 G)) 1 puff IH Q6H PRN PRN Reason: Shortness of Breath Alprazolam (Xanax) 0.5 mg PO Q12 [facility] Last Admin: 11/03/18 09:48 Dose: 0.5 mg Apixaban (Eliquis) 5 mg PO BID [facility] Last Admin: 11/03/18 09:48 Dose: 5 mg Budesonide (Pulmicort Respules) 0.5 mg IH RQ12 [facility] Last Admin: 11/03/18 08:16 Dose: 0.5 mg Diltiazem HCl (Cardizem) 60 mg PO QID [facility] Last Admin: 11/03/18 13:04 Dose: 60 mg Ferric Sodium Gluconate Complex (Ferrlecit) 125 mg IVPB DAILY [facility] Stop: 11/11/18 10:01 Last Admin: 11/03/18 10:19 Dose: 125 mg Ferrous Sulfate (Feosol) 325 mg PO TID [facility] Last Admin: 11/03/18 13:05 Dose: 325 mg Fluticasone/Vilanterol (Breo Ellipta 100-25 Mcg Inh) 1 puff INH RQD [facility] Guaifenesin (Robitussin) 200 mg PO QID [facility] Last Admin: 11/03/18 13:05 Dose: 200 mg Sodium Chloride (Sodium Chloride 0.9%) 1,000 mls @ 100 mls/hr IV .Q10H [facility] Last Admin: 11/03/18 05:19 Dose: 100 mls/hr Insulin Human Regular (Novolin R) 0 unit SC ACHS [facility]; Protocol Last Admin: 11/03/18 12:21 Dose: 2 units Metformin HCl (Glucophage) 500 mg PO BID [facility] Last Admin: 11/03/18 09:47 Dose: 500 mg Multivitamins (Hexavitamin) 1 tab PO DAILY [facility] Last Admin: 11/03/18 09:48 Dose: 1 tab Oxycodone/Acetaminophen (Percocet 5/325 Mg Tab) 1 tab PO Q4 PRN PRN Reason: Pain, moderate (4-7) Stop: 11/05/18 20:01 Pantoprazole Sodium (Protonix Ec Tab) 40 mg PO DAILY [facility] Last Admin: 11/03/18 09:48 Dose: 40 mg Potassium Chloride (Klor-Con 10) 10 meq PO DAILY [facility] Last Admin: 11/03/18 09:48 Dose: 10 meq Pregabalin (Lyrica) 75 mg PO DAILY [facility] Last Admin: 11/03/18 09:54 Dose: 75 mg Roflumilast (Daliresp) 500 mcg PO DAILY [facility] Last Admin: 11/03/18 09:48 Dose: 500 mcg Sennosides (Senokot Tab) 8.6 mg PO DAILY [facility] Last Admin: 11/03/18 09:47 Dose: 8.6 mg Results - Vital Signs Recent Vital Signs: Last Vital Signs Temp 98 F 11/03/18 08:39 Pulse 100 H 11/03/18 08:39 Resp 20 11/03/18 08:39 BP 115/70 11/03/18 08:39 Pulse Ox 98 11/03/18 08:39 - Labs Result Diagrams: 11/02/18 14:41 11/02/18 14:41 Labs: Laboratory Results - last 24 hr 11/02/18 11/02/18 11/02/18 14:41 14:41 17:51 WBC 9.5 RBC 4.96 Hgb 10.6 L Hct 33.6 L MCV 67.7 L MCH 21.5 L MCHC 31.7 L RDW 19.6 H Plt Count 289 MPV 8.8 Neut % (Auto) 69.9 Lymph % (Auto) 14.9 L [place] % (Auto) 8.4 Eos % (Auto) 6.1 H Baso % (Auto) 0.7 Neut # (Auto) 6.6 Lymph # (Auto) 1.4 [place] # (Auto) 0.8 Eos # (Auto) 0.6 Baso # (Auto) 0.1 Sodium 140 Potassium 3.2 L Chloride 97 L Carbon Dioxide 35 H Anion Gap 12 BUN 8 L Creatinine 0.6 L Est GFR ( Amer) > 60 Est GFR (Non-Af Amer) > 60 POC Glucose (mg/dL) 239 H Random Glucose 199 H D Calcium 9.7 Total Bilirubin 0.3 AST 19 ALT 17 L Alkaline Phosphatase 122 Troponin I < 0.0120 NT-Pro-B Natriuret Pep 43.3 Total Protein 7.1 Albumin 4.2 Globulin 2.9 Albumin/Globulin Ratio 1.5 11/03/18 12:08 WBC RBC Hgb Hct MCV MCH MCHC RDW Plt Count MPV Neut % (Auto) Lymph % (Auto) [place] % (Auto) Eos % (Auto) Baso % (Auto) Neut # (Auto) Lymph # (Auto) [place] # (Auto) Eos # (Auto) Baso # (Auto) Sodium Potassium Chloride Carbon Dioxide Anion Gap BUN Creatinine Est GFR ( Amer) Est GFR (Non-Af Amer) POC Glucose (mg/dL) 201 H Random Glucose Calcium Total Bilirubin AST ALT Alkaline Phosphatase Troponin I NT-Pro-B Natriuret Pep Total Protein Albumin Globulin Albumin/Globulin Ratio
[2018-11-03] MEDS ORDERED: methylPREDNISolone 60 MG in Sodium Chloride 0.9% 100 ML IVPB SCH (14:30)
[2018-11-03 20:28] LABS: HEMOGLOBIN 9.2 g/dL (12.0-18.0); MEAN CELL VOLUME 67.9 fL (80.0-94.0); MEAN CORPUSCULAR HEMOGLOBIN 21.2 pg (27.0-31.0); MEAN CORPUSCULAR HGB CONC 31.3 g/dL (33.0-37.0); MEAN PLATELET VOLUME 8.3 fL (7.2-11.7); RBC 4.34 Mil/uL (4.40-5.90); RED CELL DISTRIBUTION WIDTH 19.9 % (11.5-14.5); WHITE BLOOD COUNT 12.8 K/uL (4.8-10.8)
[2018-11-03 21:12] LABS: BLOOD UREA NITROGEN 10 mg/dL (9-20); CALCIUM 9.5 mg/dl (8.6-10.4); GFR NON-AFRICAN AMERICAN > 60
--- NOTE | 2018-11-03 21:50 | CP.PCM.PN ---
Subjective - Date & Time of Evaluation Date of Evaluation: 11/03/18 Time of Evaluation: 09:20 - Subjective Subjective: dictated Objective - Vital Signs/Intake and Output Vital Signs (last 24 hours): Temp Pulse Resp BP Pulse Ox 97.4 F L 85 20 112/54 L 98 11/03/18 16:00 11/03/18 16:10 11/03/18 16:00 11/03/18 16:00 11/03/18 17:27 Intake and Output: 11/03/18 11/04/18 18:59 06:59 Intake Total 1120 Balance 1120 - Medications Medications: Current Medications Albuterol (Ventolin Hfa 90 Mcg/Actuation (8 G)) 1 puff IH Q6H PRN PRN Reason: Shortness of Breath Alprazolam (Xanax) 0.5 mg PO Q12 [facility] Last Admin: 11/03/18 21:46 Dose: 0.5 mg Apixaban (Eliquis) 5 mg PO BID [facility] Last Admin: 11/03/18 17:22 Dose: 5 mg Budesonide (Pulmicort Respules) 0.5 mg IH RQ12 [facility] Last Admin: 11/03/18 19:04 Dose: 0.5 mg Diltiazem HCl (Cardizem) 60 mg PO QID [facility] Last Admin: 11/03/18 21:46 Dose: 60 mg Ferric Sodium Gluconate Complex (Ferrlecit) 125 mg IVPB DAILY [facility] Stop: 11/11/18 10:01 Last Admin: 11/03/18 10:19 Dose: 125 mg Ferrous Sulfate (Feosol) 325 mg PO TID [facility] Last Admin: 11/03/18 17:28 Dose: 325 mg Fluticasone/Vilanterol (Breo Ellipta 100-25 Mcg Inh) 1 puff INH RQD [facility] Guaifenesin (Robitussin) 200 mg PO QID [facility] Last Admin: 11/03/18 17:24 Dose: 200 mg Sodium Chloride (Sodium Chloride 0.9%) 1,000 mls @ 100 mls/hr IV .Q10H [facility] Last Admin: 11/03/18 17:21 Dose: 100 mls/hr Insulin Human Regular (Novolin R) 0 unit SC ACHS [facility]; Protocol Last Admin: 11/03/18 21:44 Dose: Not Given Metformin HCl (Glucophage) 500 mg PO BID [facility] Last Admin: 11/03/18 17:26 Dose: 500 mg Methylprednisolone (Solu-Medrol) 60 mg IVP Q8H [facility] Last Admin: 11/03/18 21:45 Dose: 60 mg Multivitamins (Hexavitamin) 1 tab PO DAILY [facility] Last Admin: 11/03/18 09:48 Dose: 1 tab Oxycodone/Acetaminophen (Percocet 5/325 Mg Tab) 1 tab PO Q4 PRN PRN Reason: Pain, moderate (4-7) Stop: 11/05/18 20:01 Pantoprazole Sodium (Protonix Ec Tab) 40 mg PO DAILY [facility] Last Admin: 11/03/18 09:48 Dose: 40 mg Potassium Chloride (Klor-Con 10) 10 meq PO DAILY [facility] Last Admin: 11/03/18 09:48 Dose: 10 meq Pregabalin (Lyrica) 75 mg PO DAILY [facility] Last Admin: 11/03/18 09:54 Dose: 75 mg Roflumilast (Daliresp) 500 mcg PO DAILY [facility] Last Admin: 11/03/18 09:48 Dose: 500 mcg Sennosides (Senokot Tab) 8.6 mg PO DAILY [facility] Last Admin: 11/03/18 09:47 Dose: 8.6 mg - Labs Labs: 11/03/18 20:21 11/03/18 20:21
[2018-11-04] MEDS: Potassium Chloride 20 mEq/15 ml LIQ UD PO SCH ×2 (00:22→04:55)
[2018-11-04] MEDS: Sodium Chloride 0.9% 1,000 ML IV SCH ×3 (00:55→14:12)
--- NOTE | 2018-11-04 02:56 | PN ---
DATE: 11/03/2018 SUBJECTIVE: The patient is on IV hydration and he is improving. He feels better. He is more alert. Status post bowel movement. Decreased chest pain. Positive cough. Positive wheezing. PHYSICAL EXAMINATION: VITAL SIGNS: Blood pressure 112/54, pulse 85, respiratory rate 20, temperature 97.8. LUNGS: Bilateral decreased air entry, positive rhonchi. CARDIOVASCULAR SYSTEM: S1 and S2, regular. No heave, no thrill. ABDOMEN: Soft, nontender. Bowel sounds are positive. ASSESSMENT: 1. Exacerbation of chronic obstructive pulmonary disease. 2. Dehydration, on intravenous fluid. 3. Anemia. 4. Steroid-induced diabetes. PLAN: Solu-Medrol, oxygen, nebulizer. Monitor the patient. Hal Garcia MD
[2018-11-04] MEDS: (Novolin R) Insulin Human Regular 100 units/ml vial SC SCH ×4 (08:00→22:24)
[2018-11-04] MEDS: Budesonide 0.5 mg/2 ml Inhal Susp UD IH SCH ×2 (08:24→19:54)
[2018-11-04] MEDS: Ferric Sodium Gluconat Complex 62.5 mg/5 ml Vial IVPB SCH (08:59)
[2018-11-04] MEDS: Multiple Vitamins Tab PO SCH (09:01)
[2018-11-04] MEDS: Pantoprazole 40 mg EC Tab PO SCH (09:01)
[2018-11-04] MEDS: Potassium Chloride 10 mEq ER Tab PO SCH (09:02)
[2018-11-04] MEDS: guaiFENesin 100 mg/5 ml Syrup UD PO SCH ×4 (13:00→21:00)
[2018-11-04] MEDS: Albuterol-Ipratrop 3 mg / 0.5 (3 ml) UD INH SCH ×2 (17:08→19:54)
--- NOTE | 2018-11-04 18:28 | CP.PCM.PN ---
Subjective - Date & Time of Evaluation Date of Evaluation: 11/04/18 Time of Evaluation: 11:00 - Subjective Subjective: Patient seen and examined Alert, awake, No acute distress Denies fevers, chest pain, SOB, cough Patient is improving clinically Afebrile Physical Exam Oxygen Saturation 100% General: NAD Cardio: S1, S2 Resp: Wheezing Abd: Soft, Nontender A/P 1) COPD -Continue nebulizer -Continue steroids -BiPAP as needed Objective - Vital Signs/Intake and Output Vital Signs (last 24 hours): Temp Pulse Resp BP Pulse Ox 97.6 F 90 20 115/67 98 11/04/18 15:20 11/04/18 15:20 11/04/18 15:20 11/04/18 15:20 11/04/18 15:20 Intake and Output: 11/04/18 11/04/18 06:59 18:59 Intake Total 1250 Balance 1250 - Medications Medications: Current Medications Albuterol (Ventolin Hfa 90 Mcg/Actuation (8 G)) 1 puff IH Q6H PRN PRN Reason: Shortness of Breath Albuterol/Ipratropium (Duoneb 3 Mg/0.5 Mg (3 Ml) Ud) 3 ml INH RQ6 [facility] Last Admin: 11/04/18 17:08 Dose: 3 ml Alprazolam (Xanax) 0.5 mg PO Q12 [facility] Last Admin: 11/04/18 09:01 Dose: 0.5 mg Apixaban (Eliquis) 5 mg PO BID [facility] Last Admin: 11/04/18 17:25 Dose: 5 mg Budesonide (Pulmicort Respules) 0.5 mg IH RQ12 [facility] Last Admin: 11/04/18 08:24 Dose: 0.5 mg Diltiazem HCl (Cardizem) 60 mg PO QID [facility] Last Admin: 11/04/18 17:25 Dose: 60 mg Ferric Sodium Gluconate Complex (Ferrlecit) 125 mg IVPB DAILY [facility] Stop: 11/11/18 10:01 Last Admin: 11/04/18 08:59 Dose: 125 mg Ferrous Sulfate (Feosol) 325 mg PO TID [facility] Last Admin: 11/04/18 17:25 Dose: 325 mg Fluticasone/Vilanterol (Breo Ellipta 100-25 Mcg Inh) 1 puff INH RQD [facility] Guaifenesin (Robitussin) 200 mg PO QID [facility] Last Admin: 11/04/18 17:26 Dose: 200 mg Insulin Human Regular (Novolin R) 0 unit SC ACHS [facility]; Protocol Last Admin: 11/04/18 16:51 Dose: 4 units Metformin HCl (Glucophage) 500 mg PO BID [facility] Last Admin: 11/04/18 17:25 Dose: 500 mg Methylprednisolone (Solu-Medrol) 60 mg IVP Q8H [facility] Last Admin: 11/04/18 15:15 Dose: 60 mg Multivitamins (Hexavitamin) 1 tab PO DAILY [facility] Last Admin: 11/04/18 09:01 Dose: 1 tab Oxycodone/Acetaminophen (Percocet 5/325 Mg Tab) 1 tab PO Q4 PRN PRN Reason: Pain, moderate (4-7) Stop: 11/05/18 20:01 Pantoprazole Sodium (Protonix Ec Tab) 40 mg PO DAILY [facility] Last Admin: 11/04/18 09:01 Dose: 40 mg Potassium Chloride (Klor-Con 10) 10 meq PO DAILY [facility] Last Admin: 11/04/18 09:02 Dose: 10 meq Pregabalin (Lyrica) 75 mg PO DAILY [facility] Last Admin: 11/04/18 09:01 Dose: 75 mg Roflumilast (Daliresp) 500 mcg PO DAILY [facility] Last Admin: 11/04/18 09:04 Dose: 500 mcg Sennosides (Senokot Tab) 8.6 mg PO DAILY [facility] Last Admin: 11/04/18 09:01 Dose: 8.6 mg - Labs Labs: 11/03/18 20:21 11/03/18 20:21
--- NOTE | 2018-11-04 22:44 | CP.PCM.PN ---
Subjective - Date & Time of Evaluation Date of Evaluation: 11/04/18 Time of Evaluation: 07:40 - Subjective Subjective: dictated Objective - Vital Signs/Intake and Output Vital Signs (last 24 hours): Temp Pulse Resp BP Pulse Ox 97.6 F 90 20 115/67 98 11/04/18 15:20 11/04/18 15:20 11/04/18 15:20 11/04/18 15:20 11/04/18 15:20 - Medications Medications: Current Medications Albuterol (Ventolin Hfa 90 Mcg/Actuation (8 G)) 1 puff IH Q6H PRN PRN Reason: Shortness of Breath Albuterol/Ipratropium (Duoneb 3 Mg/0.5 Mg (3 Ml) Ud) 3 ml INH RQ6 [facility] Last Admin: 11/04/18 19:54 Dose: 3 ml Alprazolam (Xanax) 0.5 mg PO Q12 [facility] Last Admin: 11/04/18 20:59 Dose: 0.5 mg Apixaban (Eliquis) 5 mg PO BID [facility] Last Admin: 11/04/18 17:25 Dose: 5 mg Budesonide (Pulmicort Respules) 0.5 mg IH RQ12 [facility] Last Admin: 11/04/18 19:54 Dose: 0.5 mg Diltiazem HCl (Cardizem) 60 mg PO QID [facility] Last Admin: 11/04/18 20:59 Dose: 60 mg Ferric Sodium Gluconate Complex (Ferrlecit) 125 mg IVPB DAILY [facility] Stop: 11/11/18 10:01 Last Admin: 11/04/18 08:59 Dose: 125 mg Ferrous Sulfate (Feosol) 325 mg PO TID [facility] Last Admin: 11/04/18 17:25 Dose: 325 mg Fluticasone/Vilanterol (Breo Ellipta 100-25 Mcg Inh) 1 puff INH RQD [facility] Guaifenesin (Robitussin) 200 mg PO QID [facility] Last Admin: 11/04/18 21:00 Dose: 200 mg Insulin Human Regular (Novolin R) 0 unit SC ACHS [facility]; Protocol Last Admin: 11/04/18 22:24 Dose: 3 units Metformin HCl (Glucophage) 500 mg PO BID [facility] Last Admin: 11/04/18 17:25 Dose: 500 mg Methylprednisolone (Solu-Medrol) 60 mg IVP Q8H [facility] Last Admin: 11/04/18 21:34 Dose: 60 mg Multivitamins (Hexavitamin) 1 tab PO DAILY [facility] Last Admin: 11/04/18 09:01 Dose: 1 tab Oxycodone/Acetaminophen (Percocet 5/325 Mg Tab) 1 tab PO Q4 PRN PRN Reason: Pain, moderate (4-7) Stop: 11/05/18 20:01 Pantoprazole Sodium (Protonix Ec Tab) 40 mg PO DAILY [facility] Last Admin: 11/04/18 09:01 Dose: 40 mg Potassium Chloride (Klor-Con 10) 10 meq PO DAILY [facility] Last Admin: 11/04/18 09:02 Dose: 10 meq Pregabalin (Lyrica) 75 mg PO DAILY [facility] Last Admin: 11/04/18 09:01 Dose: 75 mg Roflumilast (Daliresp) 500 mcg PO DAILY [facility] Last Admin: 11/04/18 09:04 Dose: 500 mcg Sennosides (Senokot Tab) 8.6 mg PO DAILY [facility] Last Admin: 11/04/18 09:01 Dose: 8.6 mg - Labs Labs: 11/03/18 20:21 11/03/18 20:21
[2018-11-05] MEDS: Albuterol-Ipratrop 3 mg / 0.5 (3 ml) UD INH SCH ×4 (01:14→19:47)
--- NOTE | 2018-11-05 01:36 | CARD ---
APPROVED REPORT Date of service: 11/02/2018 EKG Measurement Heart [id number] <Conclusion> Normal sinus rhythm Normal ECG
--- NOTE | 2018-11-05 05:04 | PN ---
DATE: 11/04/2018 SUBJECTIVE: The patient is less short of breath, less cough, less wheezing. No fever. No chills. No nausea, vomiting. PHYSICAL EXAMINATION: VITAL SIGNS: Blood pressure 115/67, pulse 90, respiratory rate 20, temperature 97.6. LUNGS: Bilateral decreased air entry. Positive bilateral rhonchi. CARDIOVASCULAR SYSTEM: PMI in fifth intercostal space. S1, S2. Regular. Tachycardic. ABDOMEN: Soft, nontender. Bowel sounds are positive. ASSESSMENT: 1. Acute exacerbation of chronic obstructive pulmonary embolism. 2. Type 2 diabetes. 3. Anemia due to gastrointestinal losses. 4. Anxiety. 5. Allergic rhinitis. PLAN: IV fluids, potassium supplementation, Accu-Chek sliding scale, Solu-Medrol. Monitor the patient. Hal Garcia MD
[2018-11-05 07:25] LABS: BLOOD UREA NITROGEN 10 mg/dL (9-20); CALCIUM 9.8 mg/dl (8.6-10.4); GFR NON-AFRICAN AMERICAN > 60
[2018-11-05] MEDS: (Novolin R) Insulin Human Regular 100 units/ml vial SC SCH ×4 (08:10→22:22)
[2018-11-05] MEDS: Budesonide 0.5 mg/2 ml Inhal Susp UD IH SCH ×2 (08:22→19:47)
[2018-11-05] MEDS ORDERED: Promethazine/Cod 6.25mg-10mg/5ml Syr UD PO STA (11:07)
[2018-11-05] MEDS: Pantoprazole 40 mg EC Tab PO SCH (11:25)
[2018-11-05] MEDS: Potassium Chloride 10 mEq ER Tab PO SCH (11:26)
[2018-11-05] MEDS: Multiple Vitamins Tab PO SCH (11:26)
[2018-11-05] MEDS: Ferric Sodium Gluconat Complex 62.5 mg/5 ml Vial IVPB SCH (11:27)
[2018-11-05] MEDS: guaiFENesin 100 mg/5 ml Syrup UD PO SCH ×5 (11:28→22:31)
--- NOTE | 2018-11-05 15:00 | CP.PCM.PN ---
Subjective - Date & Time of Evaluation Date of Evaluation: 11/05/18 Time of Evaluation: 12:00 - Subjective Subjective: Patient seen and examined Still complaining of shortness of breath on minimal exertion and at rest Afebrile On BiPAP Objective - Vital Signs/Intake and Output Vital Signs (last 24 hours): Temp Pulse Resp BP Pulse Ox 98 F 82 20 124/70 98 11/05/18 07:30 11/05/18 08:41 11/05/18 07:30 11/05/18 07:30 11/05/18 07:30 Intake and Output: 11/05/18 11/05/18 06:59 18:59 Intake Total 400 480 Balance 400 480 - Medications Medications: Current Medications Albuterol (Ventolin Hfa 90 Mcg/Actuation (8 G)) 1 puff IH Q6H PRN PRN Reason: Shortness of Breath Albuterol/Ipratropium (Duoneb 3 Mg/0.5 Mg (3 Ml) Ud) 3 ml INH RQ6 [facility] Last Admin: 11/05/18 13:08 Dose: 3 ml Alprazolam (Xanax) 0.5 mg PO Q12 [facility] Last Admin: 11/05/18 11:25 Dose: 0.5 mg Apixaban (Eliquis) 5 mg PO BID [facility] Last Admin: 11/05/18 11:26 Dose: 5 mg Budesonide (Pulmicort Respules) 0.5 mg IH RQ12 [facility] Last Admin: 11/05/18 08:22 Dose: 0.5 mg Diltiazem HCl (Cardizem) 60 mg PO QID [facility] Last Admin: 11/05/18 13:02 Dose: 60 mg Ferric Sodium Gluconate Complex (Ferrlecit) 125 mg IVPB DAILY [facility] Stop: 11/11/18 10:01 Last Admin: 11/05/18 11:27 Dose: 125 mg Ferrous Sulfate (Feosol) 325 mg PO TID [facility] Last Admin: 11/05/18 13:24 Dose: 325 mg Fluticasone/Vilanterol (Breo Ellipta 100-25 Mcg Inh) 1 puff INH RQD [facility] Guaifenesin (Robitussin) 200 mg PO QID [facility] Last Admin: 11/05/18 13:24 Dose: 200 mg Insulin Human Regular (Novolin R) 0 unit SC [facility]; Protocol Last Admin: 11/05/18 12:23 Dose: 5 units Metformin HCl (Glucophage) 500 mg PO BID [facility] Last Admin: 11/05/18 11:25 Dose: 500 mg Methylprednisolone (Solu-Medrol) 60 mg IVP Q8H [facility] Last Admin: 11/05/18 13:31 Dose: 60 mg Multivitamins (Hexavitamin) 1 tab PO DAILY [facility] Last Admin: 11/05/18 11:26 Dose: 1 tab Oxycodone/Acetaminophen (Percocet 5/325 Mg Tab) 1 tab PO Q4 PRN PRN Reason: Pain, moderate (4-7) Stop: 11/05/18 20:01 Pantoprazole Sodium (Protonix Ec Tab) 40 mg PO DAILY [facility] Last Admin: 11/05/18 11:25 Dose: 40 mg Potassium Chloride (Klor-Con 10) 10 meq PO DAILY [facility] Last Admin: 11/05/18 11:26 Dose: 10 meq Pregabalin (Lyrica) 75 mg PO DAILY [facility] Last Admin: 11/05/18 11:39 Dose: 75 mg Roflumilast (Daliresp) 500 mcg PO DAILY [facility] Last Admin: 11/05/18 11:26 Dose: 500 mcg Sennosides (Senokot Tab) 8.6 mg PO DAILY [facility] Last Admin: 11/05/18 11:26 Dose: 8.6 mg - Labs Labs: 11/03/18 20:21 11/05/18 07:04 - Head Exam Head Exam: ATRAUMATIC, NORMOCEPHALIC - ENT Exam ENT Exam: Mucous Membranes Moist - Neck Exam Neck Exam: Normal Inspection - Respiratory Exam Respiratory Exam: Decreased Breath Sounds - Cardiovascular Exam Cardiovascular Exam: REGULAR RHYTHM - GI/Abdominal Exam GI & Abdominal Exam: Soft, Normal Bowel Sounds - Extremities Exam Extremities Exam: Normal Inspection - Neurological Exam Neurological Exam: Alert Assessment and Plan (1) COPD exacerbation Assessment & Plan: Continue with BiPAP Nebulizer treatment and staple steroids Continue Daliresp Anxiolytic Status: Acute
[2018-11-05] MEDS ORDERED: Potassium Chloride 20 mEq ER Tab PO ONE (16:15)
[2018-11-05] MEDS ORDERED: Albuterol HFA 90 mcg/actuation (8 g) IH PRN (16:30)
[2018-11-05] MEDS: MethylPREDNISolone 40 mg Vial IVP SCH (22:23)
--- NOTE | 2018-11-05 23:54 | CP.PCM.PN ---
Subjective - Date & Time of Evaluation Date of Evaluation: 11/05/18 Time of Evaluation: 08:40 - Subjective Subjective: dictated Objective - Vital Signs/Intake and Output Vital Signs (last 24 hours): Temp Pulse Resp BP Pulse Ox 97.9 F 89 20 112/66 99 11/05/18 15:00 11/05/18 18:00 11/05/18 15:00 11/05/18 15:00 11/05/18 15:00 Intake and Output: 11/05/18 11/06/18 18:59 06:59 Intake Total 480 Balance 480 - Medications Medications: Current Medications Albuterol (Ventolin Hfa 90 Mcg/Actuation (8 G)) 1 puff IH RQ6 PRN PRN Reason: Shortness of Breath Albuterol/Ipratropium (Duoneb 3 Mg/0.5 Mg (3 Ml) Ud) 3 ml INH RQ6 [facility] Last Admin: 11/05/18 19:47 Dose: 3 ml Alprazolam (Xanax) 0.5 mg PO Q12 [facility] Last Admin: 11/05/18 22:23 Dose: 0.5 mg Apixaban (Eliquis) 5 mg PO BID [facility] Last Admin: 11/05/18 17:25 Dose: 5 mg Budesonide (Pulmicort Respules) 0.5 mg IH RQ12 [facility] Last Admin: 11/05/18 19:47 Dose: 0.5 mg Diltiazem HCl (Cardizem) 60 mg PO QID [facility] Last Admin: 11/05/18 22:24 Dose: 60 mg Ferric Sodium Gluconate Complex (Ferrlecit) 125 mg IVPB DAILY [facility] Stop: 11/11/18 10:01 Last Admin: 11/05/18 11:27 Dose: 125 mg Ferrous Sulfate (Feosol) 325 mg PO TID [facility] Last Admin: 11/05/18 17:26 Dose: 325 mg Fluticasone/Vilanterol (Breo Ellipta 100-25 Mcg Inh) 1 puff INH RQD [facility] Guaifenesin (Robitussin) 200 mg PO QID [facility] Last Admin: 11/05/18 22:31 Dose: 200 mg Insulin Human Regular (Novolin R) 0 unit SC ACHS [facility]; Protocol Last Admin: 11/05/18 22:22 Dose: 2 units Metformin HCl (Glucophage) 500 mg PO BID [facility] Last Admin: 11/05/18 17:25 Dose: 500 mg Methylprednisolone (Solu-Medrol) 40 mg IVP Q8H [facility] Last Admin: 11/05/18 22:23 Dose: 40 mg Multivitamins (Hexavitamin) 1 tab PO DAILY [facility] Last Admin: 11/05/18 11:26 Dose: 1 tab Pantoprazole Sodium (Protonix Ec Tab) 40 mg PO DAILY [facility] Last Admin: 11/05/18 11:25 Dose: 40 mg Potassium Chloride (Klor-Con 10) 10 meq PO DAILY [facility] Last Admin: 11/05/18 11:26 Dose: 10 meq Pregabalin (Lyrica) 75 mg PO DAILY [facility] Last Admin: 11/05/18 11:39 Dose: 75 mg Roflumilast (Daliresp) 500 mcg PO DAILY [facility] Last Admin: 11/05/18 11:26 Dose: 500 mcg Sennosides (Senokot Tab) 8.6 mg PO DAILY [facility] Last Admin: 11/05/18 11:26 Dose: 8.6 mg - Labs Labs: 11/03/18 20:21 11/05/18 07:04
[2018-11-06] MEDS: Albuterol-Ipratrop 3 mg / 0.5 (3 ml) UD INH SCH ×4 (01:13→19:06)
[2018-11-06] MEDS: MethylPREDNISolone 40 mg Vial IVP SCH ×3 (06:41→21:21)
[2018-11-06] MEDS: Budesonide 0.5 mg/2 ml Inhal Susp UD IH SCH ×2 (07:49→19:06)
[2018-11-06] MEDS: (Novolin R) Insulin Human Regular 100 units/ml vial SC SCH ×4 (08:00→21:36)
[2018-11-06] MEDS: Ferric Sodium Gluconat Complex 62.5 mg/5 ml Vial IVPB SCH (09:03)
[2018-11-06] MEDS: Multiple Vitamins Tab PO SCH (09:05)
[2018-11-06] MEDS: Pantoprazole 40 mg EC Tab PO SCH (09:06)
[2018-11-06] MEDS: Potassium Chloride 10 mEq ER Tab PO SCH (09:06)
[2018-11-06] MEDS: guaiFENesin 100 mg/5 ml Syrup UD PO SCH ×4 (12:30→21:22)
--- NOTE | 2018-11-06 12:30 | RAD ---
Date of service: 11/06/2018 HISTORY: f/u COMPARISON: 11/02/2018. FINDINGS: LUNGS: No active pulmonary disease. PLEURA: No significant pleural effusion identified, no pneumothorax apparent. CARDIOVASCULAR: No atherosclerotic calcification present No radiographic findings to suggest acute or significant cardiovascular disease. OSSEOUS STRUCTURES: No significant abnormalities. VISUALIZED UPPER ABDOMEN: Normal. OTHER FINDINGS: None. IMPRESSION: No active disease. No significant interval change compared to the prior examination(s).
--- NOTE | 2018-11-06 16:20 | CP.PCM.PN ---
Subjective - Date & Time of Evaluation Date of Evaluation: 11/06/18 Time of Evaluation: 13:00 - Subjective Subjective: Patient was seen and examined Patient is still complaining of SOB Denies fevers, chest pain, cough, sputum Afebrile Physical Exam Oxygen Saturation 99% NC General: NAD Cardio: S1, S2 Resp: Wheezing L>R Abd: Soft, Nontender Chest X Ray 11/06- No Active Disease. No significant interval change compared to prior examination(s) A/P 1) COPD - Taper steroids -Continue Duonebs -Recommend BiPAP at night Objective - Vital Signs/Intake and Output Vital Signs (last 24 hours): Temp Pulse Resp BP Pulse Ox 98 F 90 20 134/70 99 11/06/18 07:00 11/06/18 13:51 11/06/18 07:00 11/06/18 07:00 11/06/18 07:00 - Medications Medications: Current Medications Albuterol (Ventolin Hfa 90 Mcg/Actuation (8 G)) 1 puff IH RQ6 PRN PRN Reason: Shortness of Breath Albuterol/Ipratropium (Duoneb 3 Mg/0.5 Mg (3 Ml) Ud) 3 ml INH RQ6 [facility] Last Admin: 11/06/18 13:49 Dose: 3 ml Alprazolam (Xanax) 0.5 mg PO Q12 [facility] Last Admin: 11/06/18 09:06 Dose: 0.5 mg Apixaban (Eliquis) 5 mg PO BID [facility] Last Admin: 11/06/18 09:06 Dose: 5 mg Budesonide (Pulmicort Respules) 0.5 mg IH RQ12 [facility] Last Admin: 11/06/18 07:49 Dose: 0.5 mg Diltiazem HCl (Cardizem) 60 mg PO QID [facility] Last Admin: 11/06/18 13:12 Dose: 60 mg Ferric Sodium Gluconate Complex (Ferrlecit) 125 mg IVPB DAILY [facility] Stop: 11/11/18 10:01 Last Admin: 11/06/18 09:03 Dose: 125 mg Ferrous Sulfate (Feosol) 325 mg PO TID [facility] Last Admin: 11/06/18 13:12 Dose: 325 mg Fluticasone/Vilanterol (Breo Ellipta 100-25 Mcg Inh) 1 puff INH RQD [facility] Guaifenesin (Robitussin) 200 mg PO QID [facility] Last Admin: 11/06/18 14:11 Dose: 200 mg Insulin Human Regular (Novolin R) 0 unit SC ACHS [facility]; Protocol Last Admin: 11/06/18 12:11 Dose: 4 units Metformin HCl (Glucophage) 500 mg PO BID [facility] Last Admin: 11/06/18 09:05 Dose: 500 mg Methylprednisolone (Solu-Medrol) 40 mg IVP Q8H [facility] Last Admin: 11/06/18 13:20 Dose: 40 mg Multivitamins (Hexavitamin) 1 tab PO DAILY [facility] Last Admin: 11/06/18 09:05 Dose: 1 tab Pantoprazole Sodium (Protonix Ec Tab) 40 mg PO DAILY [facility] Last Admin: 11/06/18 09:06 Dose: 40 mg Potassium Chloride (Klor-Con 10) 10 meq PO DAILY [facility] Last Admin: 11/06/18 09:06 Dose: 10 meq Pregabalin (Lyrica) 75 mg PO DAILY [facility] Last Admin: 11/06/18 09:05 Dose: 75 mg Roflumilast (Daliresp) 500 mcg PO DAILY [facility] Last Admin: 11/06/18 09:05 Dose: 500 mcg Sennosides (Senokot Tab) 8.6 mg PO DAILY [facility] Last Admin: 11/06/18 09:05 Dose: 8.6 mg - Labs Labs: 11/03/18 20:21 11/05/18 07:04 Assessment and Plan (1) COPD exacerbation Status: Acute
--- NOTE | 2018-11-06 23:45 | CP.PCM.PN ---
Subjective - Date & Time of Evaluation Date of Evaluation: 11/06/18 Time of Evaluation: 09:00 - Subjective Subjective: dictated Objective - Vital Signs/Intake and Output Vital Signs (last 24 hours): Temp Pulse Resp BP Pulse Ox 97.8 F 78 20 137/79 95 11/06/18 15:00 11/06/18 18:39 11/06/18 15:00 11/06/18 15:00 11/06/18 15:00 Intake and Output: 11/06/18 11/07/18 18:59 06:59 Intake Total 650 500 Balance 650 500 - Medications Medications: Current Medications Albuterol (Ventolin Hfa 90 Mcg/Actuation (8 G)) 1 puff IH RQ6 PRN PRN Reason: Shortness of Breath Albuterol/Ipratropium (Duoneb 3 Mg/0.5 Mg (3 Ml) Ud) 3 ml INH RQ6 [facility] Last Admin: 11/06/18 19:06 Dose: 3 ml Alprazolam (Xanax) 0.5 mg PO Q12 [facility] Last Admin: 11/06/18 21:22 Dose: 0.5 mg Apixaban (Eliquis) 5 mg PO BID [facility] Last Admin: 11/06/18 18:07 Dose: 5 mg Budesonide (Pulmicort Respules) 0.5 mg IH RQ12 [facility] Last Admin: 11/06/18 19:06 Dose: 0.5 mg Diltiazem HCl (Cardizem) 60 mg PO QID [facility] Last Admin: 11/06/18 21:22 Dose: 60 mg Ferric Sodium Gluconate Complex (Ferrlecit) 125 mg IVPB DAILY [facility] Stop: 11/11/18 10:01 Last Admin: 11/06/18 09:03 Dose: 125 mg Ferrous Sulfate (Feosol) 325 mg PO TID [facility] Last Admin: 11/06/18 18:12 Dose: 325 mg Fluticasone/Vilanterol (Breo Ellipta 100-25 Mcg Inh) 1 puff INH RQD [facility] Guaifenesin (Robitussin) 200 mg PO QID [facility] Last Admin: 11/06/18 21:22 Dose: 200 mg Insulin Human Regular (Novolin R) 0 unit SC ACHS [facility]; Protocol Last Admin: 11/06/18 21:36 Dose: 2 units Metformin HCl (Glucophage) 500 mg PO BID [facility] Last Admin: 11/06/18 18:07 Dose: 500 mg Methylprednisolone (Solu-Medrol) 40 mg IVP Q8H [facility] Last Admin: 11/06/18 21:21 Dose: 40 mg Multivitamins (Hexavitamin) 1 tab PO DAILY [facility] Last Admin: 11/06/18 09:05 Dose: 1 tab Pantoprazole Sodium (Protonix Ec Tab) 40 mg PO DAILY [facility] Last Admin: 11/06/18 09:06 Dose: 40 mg Potassium Chloride (Klor-Con 10) 10 meq PO DAILY [facility] Last Admin: 11/06/18 09:06 Dose: 10 meq Pregabalin (Lyrica) 75 mg PO DAILY [facility] Last Admin: 11/06/18 09:05 Dose: 75 mg Roflumilast (Daliresp) 500 mcg PO DAILY [facility] Last Admin: 11/06/18 09:05 Dose: 500 mcg Sennosides (Senokot Tab) 8.6 mg PO DAILY [facility] Last Admin: 11/06/18 09:05 Dose: 8.6 mg - Labs Labs: 11/03/18 20:21 11/05/18 07:04
--- NOTE | 2018-11-06 23:49 | CON ---
DATE: 11/06/2018 REASON FOR CONSULTATION: Sinus tachycardia. HISTORY OF PRESENT ILLNESS: The patient is a 68-year-old male who has advanced chronic obstructive lung disease, questionable history of atrial fibrillation in the past. He is on nasal home O2, has history of rectal CA status post resection and ileostomy that was reversed several times in the past and was complicated by fistula, but now had a successful surgery for fistula. The patient underwent cardiac catheterization a few years ago, which revealed unremarkable coronary circulation. The patient also has a history of DVT and pulmonary embolism about one year ago. The patient also has a history of a fall and lumbar spinal fracture about a year ago. The patient presented because of poor oral intake, weakness, and unsteadiness. The patient also reported palpitations and was getting shortness of breath. The patient denies any syncope or fall this time. The patient denies any fever or chills. The patient denies any diarrhea or melena. PAST MEDICAL HISTORY: Hypertension, diabetes mellitus, chronic obstructive lung disease, rectal CA, anxiety disorder, DVT and pulmonary embolus. SOCIAL HISTORY: The patient is a former smoker. He is and lives with his . MEDICATIONS: Cardizem 60 mg four times a day, albuterol inhaler every 6 hours, Eliquis 5 mg twice a day, Ferrlecit infusion at 25 mg daily, Glucophage 500 mg twice a day, multivitamin one tablet once a day, Klor-Con 10 mEq once a day, Lyrica 75 mg once a day, Robitussin 200 mg four times a day, Solu-Medrol 40 mg intravenously every 8 hours, Ventolin inhaler every 6 hours and Xanax 0.5 mg twice a day. PHYSICAL EXAMINATION: GENERAL: The patient is an elderly male who does not appear to be in acute distress. VITAL SIGNS: Blood pressure 134/70, heart rate 65, temperature 98, and respirations 20. HEENT: Normocephalic. CHEST: Bilateral rhonchi. HEART: S1, S2, regular. ABDOMEN: Soft. EXTREMITIES: No pedal edema. LABORATORY DATA: On 11/03/2018, hemoglobin and hematocrit 9.2 and 29.5, white count 12.8, and platelet count 298,000 . On 11/05/2018, yesterday, the SMA-7 is within normal limits except for glucose of 331. Admitting EKG revealed normal sinus rhythm at a rate of 97. The most recent echo in February of last year revealed normal left ventricular systolic function, normal regional wall motion and [id number] aortic insufficiency. The cardiac catheterization in 11/2015, i..e., three years ago, revealed unremarkable coronary circulation. ASSESSMENT: 1. Exacerbation of chronic obstructive lung disease. 2. Uncontrolled diabetes mellitus. 3. Sinus tachycardia which is physiologic to the patient's current multiple medical problems. 4. History of recent deep venous thrombosis and pulmonary embolism. 5. Mild anemia. RECOMMENDATIONS: Case was discussed with the medical team including the nurse practitioner. Continue Cardizem at 60 mg four times a day, Eliquis 5 mg twice a day, Feosol 325 mg t.i.d., Glucophage 500 mg twice a day, Klor-Con 10 mEq once a day, Robitussin 200 mg four times a day, Solu-Medrol 40 mg intravenously every 8 hours, and Xanax 0.5 mg twice a day. No further cardiac workup is needed at this time. Mukesh Correia MD DT: 11/06/2018 14:15:20
[2018-11-07] MEDS: Albuterol-Ipratrop 3 mg / 0.5 (3 ml) UD INH SCH ×4 (02:13→19:50)
--- NOTE | 2018-11-07 04:12 | PN ---
DATE: 11/06/2018 SUBJECTIVE: The patient is still coughing, wheezing, and is short of breath. is at the bedside. He denies any nausea or vomiting. He has chest pain upon coughing, chest congestion. No diarrhea. PHYSICAL EXAMINATION: VITAL SIGNS: Blood pressure 112/68, pulse 112, respiratory rate 20, temperature 99. LUNGS: Bilateral inspiratory and expiratory rhonchi. Decreased air entry. CARDIOVASCULAR SYSTEM: S1 and S2, regular. ABDOMEN: Soft, nontender. Bowel sounds are positive. ASSESSMENT: 1. Acute exacerbation of chronic obstructive pulmonary disease. 2. Allergic rhinitis. 3. Steroid-induced diabetes. PLAN: Continue current medication. Monitor the patient. Hal Garcia MD
--- NOTE | 2018-11-07 04:52 | PN ---
DATE: 11/06/2018 SUBJECTIVE: The patient is still coughing, wheezing, shortness of breath and he feels chills, rigors. He denies any nausea or vomiting. No abdominal pain. No hematemesis, melena or hematochezia. PHYSICAL EXAMINATION: VITAL SIGNS: Blood pressure is 112/66, pulse 91, respiratory rate 20, temperature 97.9. LUNGS: Bilateral decreased air entry. Positive rhonchi. CARDIOVASCULAR SYSTEM: PMI in the fifth intercostal space. S1, S2. Regular. No heave noted. ABDOMEN: Soft, nontender. Bowel sounds are positive. ASSESSMENT: 1. Acute exacerbation of chronic obstructive pulmonary disease. 2. Dehydration with hypovolemia. 3. Anxiety. 4. Allergic rhinitis. PLAN: Continue current medication. Monitor the patient. Hal Garcia MD
[2018-11-07] MEDS: MethylPREDNISolone 40 mg Vial IVP SCH ×3 (06:06→21:17)
[2018-11-07] MEDS: Budesonide 0.5 mg/2 ml Inhal Susp UD IH SCH ×2 (07:54→19:50)
[2018-11-07] MEDS: (Novolin R) Insulin Human Regular 100 units/ml vial SC SCH ×4 (07:57→21:29)
[2018-11-07 08:23] LABS: BASO % 0.2 % (0.0-2.0); HEMOGLOBIN 10.6 g/dL (12.0-18.0); LYMPH # 0.3 K/uL (1.0-4.3); LYMPH % 1.7 % (20.0-40.0); MEAN CELL VOLUME 68.6 fL (80.0-94.0); MEAN CORPUSCULAR HEMOGLOBIN 21.8 pg (27.0-31.0); MEAN CORPUSCULAR HGB CONC 31.8 g/dL (33.0-37.0); MEAN PLATELET VOLUME 9.1 fL (7.2-11.7); MONO # 0.7 K/uL (0.0-0.8); MONO % 4.6 % (0.0-10.0); NEUT # 14.5 K/uL (1.8-7.0); NEUT % 93.5 % (50.0-75.0); NRBC % 0.3 % (0.0-2.0); PLATELET COUNT 289 K/uL (130-400); RBC 4.83 Mil/uL (4.40-5.90); RED CELL DISTRIBUTION WIDTH 21.1 % (11.5-14.5); WHITE BLOOD COUNT 15.5 K/uL (4.8-10.8)
[2018-11-07 08:27] LABS: BLOOD UREA NITROGEN 16 mg/dL (9-20); CALCIUM 9.5 mg/dl (8.6-10.4); GFR NON-AFRICAN AMERICAN > 60
[2018-11-07] MEDS: guaiFENesin 100 mg/5 ml Syrup UD PO SCH ×4 (09:06→21:27)
[2018-11-07] MEDS: Ferric Sodium Gluconat Complex 62.5 mg/5 ml Vial IVPB SCH (09:06)
[2018-11-07] MEDS: Pantoprazole 40 mg EC Tab PO SCH (09:07)
[2018-11-07] MEDS: Potassium Chloride 10 mEq ER Tab PO SCH (09:08)
[2018-11-07] MEDS: Multiple Vitamins Tab PO SCH (09:08)
[2018-11-07 09:59] LABS: BANDS 3 % (0-2); LYMPHOCYTE 2 % (20-40); MONOCYTE 4 % (0-10); NEUTROPHIL 91 % (50-75); TOTAL CELLS COUNTED 100
[2018-11-07 10:00] LABS: ANISOCYTOSIS MODERATE; OVALOCYTES MODERATE; PLATELET ESTIMATE NORMAL (NORMAL); POIKILOCYTOSIS SLIGHT
[2018-11-07 10:01] LABS: HYPOCHROMIC MODERATE
[2018-11-07 10:02] LABS: MICROCYTOSIS SLIGHT
--- NOTE | 2018-11-07 11:57 | CP.PCM.PN ---
Subjective - Date & Time of Evaluation Date of Evaluation: 11/07/18 Time of Evaluation: 10:40 - Subjective Subjective: Seen and examined Still complaining of dyspnea on minimal exertion On BiPAP Afebrile Objective - Vital Signs/Intake and Output Vital Signs (last 24 hours): Temp Pulse Resp BP Pulse Ox 98.0 F 81 20 125/76 100 11/07/18 07:00 11/07/18 08:36 11/07/18 07:00 11/07/18 07:00 11/07/18 07:00 Intake and Output: 11/07/18 11/07/18 06:59 18:59 Intake Total 500 Balance 500 - Medications Medications: Current Medications Albuterol (Ventolin Hfa 90 Mcg/Actuation (8 G)) 1 puff IH RQ6 PRN PRN Reason: Shortness of Breath Albuterol/Ipratropium (Duoneb 3 Mg/0.5 Mg (3 Ml) Ud) 3 ml INH RQ6 [facility] Last Admin: 11/07/18 07:54 Dose: 3 ml Alprazolam (Xanax) 0.5 mg PO Q12 [facility] Last Admin: 11/07/18 09:08 Dose: 0.5 mg Apixaban (Eliquis) 5 mg PO BID [facility] Last Admin: 11/07/18 09:08 Dose: 5 mg Budesonide (Pulmicort Respules) 0.5 mg IH RQ12 [facility] Last Admin: 11/07/18 07:54 Dose: 0.5 mg Diltiazem HCl (Cardizem) 60 mg PO QID [facility] Last Admin: 11/07/18 09:07 Dose: 60 mg Ferric Sodium Gluconate Complex (Ferrlecit) 125 mg IVPB DAILY [facility] Stop: 11/11/18 10:01 Last Admin: 11/07/18 09:06 Dose: 125 mg Ferrous Sulfate (Feosol) 325 mg PO TID [facility] Last Admin: 11/07/18 09:12 Dose: 325 mg Fluticasone/Vilanterol (Breo Ellipta 100-25 Mcg Inh) 1 puff INH RQD [facility] Guaifenesin (Robitussin) 200 mg PO QID [facility] Last Admin: 11/07/18 09:06 Dose: 200 mg Insulin Human Regular (Novolin R) 0 unit SC [facility]; Protocol Last Admin: 11/07/18 07:57 Dose: 3 units Metformin HCl (Glucophage) 500 mg PO BID [facility] Last Admin: 11/07/18 09:07 Dose: 500 mg Methylprednisolone (Solu-Medrol) 40 mg IVP Q8H [facility] Last Admin: 11/07/18 06:06 Dose: 40 mg Multivitamins (Hexavitamin) 1 tab PO DAILY [facility] Last Admin: 11/07/18 09:08 Dose: 1 tab Pantoprazole Sodium (Protonix Ec Tab) 40 mg PO DAILY [facility] Last Admin: 11/07/18 09:07 Dose: 40 mg Potassium Chloride (Klor-Con 10) 10 meq PO DAILY [facility] Last Admin: 11/07/18 09:08 Dose: 10 meq Pregabalin (Lyrica) 75 mg PO DAILY [facility] Last Admin: 11/07/18 09:07 Dose: 75 mg Roflumilast (Daliresp) 500 mcg PO DAILY [facility] Last Admin: 11/07/18 09:12 Dose: 500 mcg Sennosides (Senokot Tab) 8.6 mg PO DAILY [facility] Last Admin: 11/07/18 09:08 Dose: Not Given - Labs Labs: 11/07/18 07:55 11/07/18 07:55 - Head Exam Head Exam: ATRAUMATIC, NORMOCEPHALIC - ENT Exam ENT Exam: Mucous Membranes Moist - Neck Exam Neck Exam: Normal Inspection - Respiratory Exam Respiratory Exam: Decreased Breath Sounds - Cardiovascular Exam Cardiovascular Exam: REGULAR RHYTHM - GI/Abdominal Exam GI & Abdominal Exam: Soft, Normal Bowel Sounds - Extremities Exam Extremities Exam: Normal Inspection - Neurological Exam Neurological Exam: Alert Assessment and Plan (1) COPD exacerbation Assessment & Plan: Continue nebulizer treatment Continue IV steroids Continue Daliresp BiPAP Follow-up [facility] Physical therapy Brovana twice daily Status: Acute
[2018-11-07] MEDS ORDERED: Magnesium Hydroxide Susp 30 ml UD PO ONE (16:57)
--- NOTE | 2018-11-07 21:57 | CP.PCM.PN ---
Subjective - Date & Time of Evaluation Date of Evaluation: 11/07/18 Time of Evaluation: 07:20 - Subjective Subjective: dictated Objective - Vital Signs/Intake and Output Vital Signs (last 24 hours): Temp Pulse Resp BP Pulse Ox 98.1 F 99 H 20 117/70 98 11/07/18 21:25 11/07/18 21:25 11/07/18 21:25 11/07/18 21:25 11/07/18 21:25 Intake and Output: 11/07/18 11/08/18 18:59 06:59 Intake Total 580 Balance 580 - Medications Medications: Current Medications Albuterol (Ventolin Hfa 90 Mcg/Actuation (8 G)) 1 puff IH RQ6 PRN PRN Reason: Shortness of Breath Albuterol/Ipratropium (Duoneb 3 Mg/0.5 Mg (3 Ml) Ud) 3 ml INH RQ6 [facility] Last Admin: 11/07/18 19:50 Dose: 3 ml Alprazolam (Xanax) 0.5 mg PO Q12 [facility] Last Admin: 11/07/18 21:28 Dose: 0.5 mg Apixaban (Eliquis) 5 mg PO BID [facility] Last Admin: 11/07/18 18:06 Dose: 5 mg Budesonide (Pulmicort Respules) 0.5 mg IH RQ12 [facility] Last Admin: 11/07/18 19:50 Dose: 0.5 mg Diltiazem HCl (Cardizem) 60 mg PO QID [facility] Last Admin: 11/07/18 21:27 Dose: 60 mg Ferric Sodium Gluconate Complex (Ferrlecit) 125 mg IVPB DAILY [facility] Stop: 11/11/18 10:01 Last Admin: 11/07/18 09:06 Dose: 125 mg Ferrous Sulfate (Feosol) 325 mg PO TID [facility] Last Admin: 11/07/18 18:06 Dose: 325 mg Fluticasone/Vilanterol (Breo Ellipta 100-25 Mcg Inh) 1 puff INH RQD [facility] Guaifenesin (Robitussin) 200 mg PO QID [facility] Last Admin: 11/07/18 21:27 Dose: 200 mg Insulin Human Regular (Novolin R) 0 unit SC ACHS [facility]; Protocol Last Admin: 11/07/18 21:29 Dose: Not Given Metformin HCl (Glucophage) 500 mg PO BID [facility] Last Admin: 11/07/18 18:06 Dose: 500 mg Methylprednisolone (Solu-Medrol) 40 mg IVP Q8H [facility] Last Admin: 11/07/18 21:17 Dose: 40 mg Multivitamins (Hexavitamin) 1 tab PO DAILY [facility] Last Admin: 11/07/18 09:08 Dose: 1 tab Pantoprazole Sodium (Protonix Ec Tab) 40 mg PO DAILY [facility] Last Admin: 11/07/18 09:07 Dose: 40 mg Potassium Chloride (Klor-Con 10) 10 meq PO DAILY [facility] Last Admin: 11/07/18 09:08 Dose: 10 meq Pregabalin (Lyrica) 75 mg PO DAILY [facility] Last Admin: 11/07/18 09:07 Dose: 75 mg Roflumilast (Daliresp) 500 mcg PO DAILY [facility] Last Admin: 11/07/18 09:12 Dose: 500 mcg Sennosides (Senokot Tab) 8.6 mg PO DAILY [facility] Last Admin: 11/07/18 09:08 Dose: Not Given - Labs Labs: 11/07/18 07:55 11/07/18 07:55
--- NOTE | 2018-11-07 23:18 | PN ---
DATE: 11/07/2018 SUBJECTIVE: The patient denies chest pain. He is still short of breath on BiPAP. PHYSICAL EXAMINATION: VITAL SIGNS: Blood pressure 125/76, heart rate 68, temperature 98, respirations 20. HEENT: Normocephalic. Chest: Bilateral rhonchi. HEART: S1 and S2. Regular. ABDOMEN: Soft. EXTREMITIES: No edema. LABORATORY DATA: Hemoglobin and hematocrit 10.6 and 33.2. White count 15.5, platelet count 289,000. Today's SMA-7, sodium 138, potassium 4.2, chloride 102, CO2 of 32, glucose 187, BUN 16, creatinine 0.7. ASSESSMENT: 1. Exacerbation of chronic obstructive lung disease. 2. Sinus tachycardia which is physiologic response to the patient's multiple medical problems. 3. Hypertension. 4. Uncontrolled diabetes mellitus. 5. History of deep vein thrombosis and pulmonary embolism. 6. Anxiety disorder. RECOMMENDATIONS: Continue Cardizem 60 mg q.i.d., albuterol inhaler every 6 hours., Eliquis 5 mg twice a day, metformin 500 mg twice a day, Klor-Con 10 mEq once a day, Solu-Medrol 40 mg intravenously every 8 hours, and Xanax 0.5 mg twice a day. Mukesh Correia MD
[2018-11-08] MEDS: Albuterol-Ipratrop 3 mg / 0.5 (3 ml) UD INH SCH ×3 (01:18→14:20)
[2018-11-08] MEDS: MethylPREDNISolone 40 mg Vial IVP SCH ×2 (06:15→12:59)
[2018-11-08] MEDS: (Novolin R) Insulin Human Regular 100 units/ml vial SC SCH ×3 (07:55→17:11)
[2018-11-08] MEDS: Budesonide 0.5 mg/2 ml Inhal Susp UD IH SCH (08:02)
[2018-11-08] MEDS: Multiple Vitamins Tab PO SCH (09:01)
[2018-11-08] MEDS: Potassium Chloride 10 mEq ER Tab PO SCH (09:01)
[2018-11-08] MEDS: Pantoprazole 40 mg EC Tab PO SCH (09:01)
[2018-11-08] MEDS: Ferric Sodium Gluconat Complex 62.5 mg/5 ml Vial IVPB SCH (09:02)
[2018-11-08] MEDS: guaiFENesin 100 mg/5 ml Syrup UD PO SCH ×3 (09:30→17:16)
--- NOTE | 2018-11-08 11:55 | CP.PCM.PN ---
Subjective - Date & Time of Evaluation Date of Evaluation: 11/08/18 Time of Evaluation: 09:00 - Subjective Subjective: Patient was seen and examined Patient admits to minimal SOB with excertion Denies fevers, chest pain, cough, sputum Afebrile Patient is comfortable on BiPAP Physical Exam Oxygen Saturation 95% BiPAP General: NAD Cardio: S1, S2 Resp: Wheezing L>R Abd: Soft, Nontender Chest X Ray 11/06- No Active Disease. No significant interval change compared to prior examination(s) A/P 1) COPD Exacerbation - Continue IV steroids -Continue Nebulizer treatment -Continue Daliresp -Continue BiPAP -F/U [facility]G -Physical Therapy -Brovana Twice a day Objective - Vital Signs/Intake and Output Vital Signs (last 24 hours): Temp Pulse Resp BP Pulse Ox 97.2 F L 63 18 119/72 95 11/08/18 07:00 11/08/18 07:49 11/08/18 07:00 11/08/18 07:00 11/08/18 07:00 Intake and Output: 11/08/18 11/08/18 06:59 18:59 Intake Total 480 Balance 480 - Medications Medications: Current Medications Albuterol (Ventolin Hfa 90 Mcg/Actuation (8 G)) 1 puff IH RQ6 PRN PRN Reason: Shortness of Breath Albuterol/Ipratropium (Duoneb 3 Mg/0.5 Mg (3 Ml) Ud) 3 ml INH RQ6 [facility] Last Admin: 11/08/18 08:02 Dose: 3 ml Alprazolam (Xanax) 0.5 mg PO Q12 [facility] Last Admin: 11/08/18 09:01 Dose: 0.5 mg Apixaban (Eliquis) 5 mg PO BID [facility] Last Admin: 11/08/18 09:01 Dose: 5 mg Budesonide (Pulmicort Respules) 0.5 mg IH RQ12 [facility] Last Admin: 11/08/18 08:02 Dose: 0.5 mg Diltiazem HCl (Cardizem) 60 mg PO QID [facility] Last Admin: 11/08/18 09:01 Dose: 60 mg Ferric Sodium Gluconate Complex (Ferrlecit) 125 mg IVPB DAILY [facility] Stop: 11/11/18 10:01 Last Admin: 03/29/19 09:02 Dose: 125 mg Ferrous Sulfate (Feosol) 325 mg PO TID [facility] Last Admin: 11/08/18 09:01 Dose: 325 mg Fluticasone/Vilanterol (Breo Ellipta 100-25 Mcg Inh) 1 puff INH RQD [facility] Guaifenesin (Robitussin) 200 mg PO QID [facility] Last Admin: 11/08/18 09:30 Dose: 200 mg Insulin Human Regular (Novolin R) 0 unit SC ACHS [facility]; Protocol Last Admin: 11/08/18 11:25 Dose: 4 units Metformin HCl (Glucophage) 500 mg PO BID [facility] Last Admin: 11/08/18 09:01 Dose: 500 mg Methylprednisolone (Solu-Medrol) 40 mg IVP Q8H [facility] Last Admin: 11/08/18 06:15 Dose: 40 mg Multivitamins (Hexavitamin) 1 tab PO DAILY [facility] Last Admin: 11/08/18 09:01 Dose: 1 tab Pantoprazole Sodium (Protonix Ec Tab) 40 mg PO DAILY [facility] Last Admin: 11/08/18 09:01 Dose: 40 mg Potassium Chloride (Klor-Con 10) 10 meq PO DAILY [facility] Last Admin: 11/08/18 09:01 Dose: 10 meq Pregabalin (Lyrica) 75 mg PO DAILY [facility] Last Admin: 11/08/18 09:01 Dose: 75 mg Roflumilast (Daliresp) 500 mcg PO DAILY [facility] Last Admin: 11/08/18 09:01 Dose: 500 mcg Sennosides (Senokot Tab) 8.6 mg PO DAILY [facility] Last Admin: 11/08/18 09:03 Dose: Not Given - Labs Labs: 11/07/18 07:55 11/07/18 07:55 Assessment and Plan (1) COPD exacerbation Status: Acute
[2018-11-08 12:33] VITALS: PULSE 95
--- NOTE | 2018-11-08 12:39 | CP.PCM.DIS ---
Provider - Provider Date of Admission: 11/02/18 15:59 Attending physician: Hal Garcia MD Consults: 11/02/18 18:45 Nursing Referral for Palliative Care Routine Comment: triggered from admission Physician Instructions: Reason For Exam: niya score 7 Social Work Referral Routine Comment: protocol Physician Instructions: Reason For Exam: triggered from admission 11/02/18 20:24 Pulmonology Consult Routine Comment: Consulting Provider: Ralf Nuno Consulting Physician: Ralf Nuno Reason for Consult: COPD 11/06/18 11:42 Cardiology Consult Routine Comment: notify-ied by APPOINTMENT COORDINATOR Consulting Provider: Mukesh Correia Consulting Physician: Mukesh Correia Reason for Consult: chest pain / Time Spent in preparation of Discharge (in minutes): 30 Hospital Course - Lab Results Lab Results: Most Recent Lab Values WBC 15.5 K/uL (4.8-10.8) H 11/07/18 07:55 RBC 4.83 Mil/uL (4.40-5.90) 11/07/18 07:55 Hgb 10.6 g/dL (12.0-18.0) L 11/07/18 07:55 Hct 33.2 % (35.0-51.0) L 11/07/18 07:55 MCV 68.6 fL (80.0-94.0) L 11/07/18 07:55 MCH 21.8 pg (27.0-31.0) L 11/07/18 07:55 MCHC 31.8 g/dL (33.0-37.0) L 11/07/18 07:55 RDW 21.1 % (11.5-14.5) H 11/07/18 07:55 Plt Count 289 K/uL (130-400) 11/07/18 07:55 MPV 9.1 fL (7.2-11.7) 11/07/18 07:55 Neut % (Auto) 93.5 % (50.0-75.0) H 11/07/18 07:55 Lymph % (Auto) 1.7 % (20.0-40.0) L 11/07/18 07:55 Tyrrell % (Auto) 4.6 % (0.0-10.0) 11/07/18 07:55 Eos % (Auto) 0.0 % (0.0-4.0) 11/07/18 07:55 Baso % (Auto) 0.2 % (0.0-2.0) 11/07/18 07:55 Neut # (Auto) 14.5 K/uL (1.8-7.0) H 11/07/18 07:55 Lymph # (Auto) 0.3 K/uL (1.0-4.3) L 11/07/18 07:55 Tyrrell # (Auto) 0.7 K/uL (0.0-0.8) 11/07/18 07:55 Eos # (Auto) 0.0 K/uL (0.0-0.7) 11/07/18 07:55 Baso # (Auto) 0.0 K/uL (0.0-0.2) 11/07/18 07:55 Neutrophils % (Manual) 91 % (50-75) H 11/07/18 07:55 Band Neutrophils % 3 % (0-2) H 11/07/18 07:55 Lymphocytes % (Manual) 2 % (20-40) L 11/07/18 07:55 Monocytes % (Manual) 4 % (0-10) 11/07/18 07:55 Platelet Estimate Normal (NORMAL) 11/07/18 07:55 Hypochromasia (manual) Moderate 11/07/18 07:55 Poikilocytosis (manual Slight 11/07/18 07:55 Anisocytosis (manual) Moderate 11/07/18 07:55 Microcytosis (manual) Slight 11/07/18 07:55 Ovalocytes Moderate 11/07/18 07:55 Sodium 138 mmol/L (132-148) 11/07/18 07:55 Potassium 4.2 mmol/L (3.6-5.2) 11/07/18 07:55 Chloride 102 mmol/L (98-107) 11/07/18 07:55 Carbon Dioxide 32 mmol/L (22-30) H 11/07/18 07:55 Anion Gap 8 (10-20) L 11/07/18 07:55 BUN 16 mg/dL (9-20) 11/07/18 07:55 Creatinine 0.7 mg/dL (0.8-1.5) L 11/07/18 07:55 Est GFR ( Amer) > 60 11/07/18 07:55 Est GFR (Non-Af Amer) > 60 11/07/18 07:55 POC Glucose (mg/dL) 348 mg/dL (65-110) H 11/08/18 11:17 Random Glucose 287 mg/dL (75-110) H 11/07/18 07:55 Calcium 9.5 mg/dl (8.6-10.4) 11/07/18 07:55 Magnesium 2.1 mg/dL (1.6-2.3) 11/03/18 20:21 Total Bilirubin 0.3 mg/dL (0.2-1.3) 11/02/18 14:41 AST 19 U/L (17-59) 11/02/18 14:41 ALT 17 U/L (21-72) L 11/02/18 14:41 Alkaline Phosphatase 122 U/L (38-126) 11/02/18 14:41 Troponin I < 0.0120 ng/mL (0.00-0.120) 11/02/18 14:41 NT-Pro-B Natriuret Pep 43.3 pg/mL (0-900) 11/02/18 14:41 Total Protein 7.1 g/dL (6.3-8.3) 11/02/18 14:41 Albumin 4.2 g/dL (3.5-5.0) 11/02/18 14:41 Globulin 2.9 gm/dL (2.2-3.9) 11/02/18 14:41 Albumin/Globulin Ratio 1.5 (1.0-2.1) 11/02/18 14:41 Discharge Exam - Head Exam Head Exam: ATRAUMATIC, NORMOCEPHALIC Discharge Plan - Discharge Medications Prescriptions: predniSONE [Prednisone] 10 mg PO DAILY #12 tab - Follow Up Plan Condition: GUARDED Disposition: HOME/ ROUTINE Instructions: Heart Healthy Diet, Diabetes Exchange Diet, Heart Failure, Adult (DC), Diabetes Diet , Exacerbation of COPD (DC), Prednisone Additional Instructions: prednisone tapering dose continue with previous medications at home follow up with PMD in 1 week Referrals: Hal Garcia MD [Staff Provider] -
[2018-11-08 16:00] VITALS: BP 132/74; RESP 20; TEMP 98; O2SAT 94
--- NOTE | 2018-11-08 18:03 | PCM.HF ---
Heart Failure Core Measure AnticoagulationTherapy for Atrial Fibrillation/Atrialflutter: Yes
--- NOTE | 2018-11-09 01:43 | PN ---
DATE: 11/08/2018 SUBJECTIVE: The patient denies any chest pain. He is comfortable on nasal O2. Has mild cough. PHYSICAL EXAMINATION: VITAL SIGNS: Blood pressure 167/86, heart rate 114, temperature 99.4, respirations 20. HEENT: Normocephalic. CHEST: Bilateral rhonchi. HEART: S1 and S2, regular. EXTREMITIES: No edema. LABORATORY DATA: Today's blood sugars are 340 and 348 respectively. ASSESSMENT: 1. Exacerbation of chronic obstructive lung disease. 2. Physiologic sinus tachycardia. 3. History of rectal cancer. 4. History of deep vein thrombosis and pulmonary embolism. RECOMMENDATIONS: Continue Cardizem 60 mg q.i.d., albuterol inhaler every 6 hours., Eliquis 5 mg twice a day, Ferrlecit infusion, continue metformin 500 mg twice a day, Protonix 40 mg once a day, Solu-Medrol 40 mg intravenously every 8 hours, and Xanax 0.5 mg twice a day. Mukesh Correia MD
--- NOTE | 2018-11-09 05:36 | DS ---
DISCHARGE DIAGNOSES: 1. Acute exacerbation of chronic obstructive pulmonary disease. 2. Dehydration. 3. Steroid-induced diabetes. 4. Allergic rhinitis. HISTORY OF PRESENT ILLNESS: This is a 68-year-old male, well known to me with a history of COPD. He is on home oxygen, home nebulizer, home CPAP. He is compliant with his diet, medication, and followup. He was diagnosed with COPD three years ago, and he has been in and out of the hospital on a regular basis. Because of cough, congestion, shortness of breath, wheezing and generalized weakness, the patient was admitted to the floor. The patient was started on Solu-Medrol, IV fluids, Accu-Cheks, sliding scale. After hydration, the patient's condition improved due to steroid. His blood sugar went up. The patient was treated with IV fluids and insulin injection, and the patient is feeling better and is here for discharge. PHYSICAL EXAMINATION: LUNGS: Decreased air entry. Positive rhonchi. CARDIOVASCULAR SYSTEM: S1 and S2, regular. ABDOMEN: Soft, nontender. Bowel sounds are positive. PLAN: Discharge the patient. Monitor the patient. Hal Garcia MD
== END 2018-11-08 18:19 | disposition home or self-care (01) | DRG 191 ==
LOC: C.ER 13:57 → C.9E 15:59 → C.6T 16:33
PROVIDERS: ADMIT Internal Medicine; ATTEND Internal Medicine
PROC: 5A09557 Assistance with Respiratory Ventilation, Greater than 96 Consecutive Hours, Continuous Positive Airway Pressure (ICD-10-PCS; principal; 2018-11-02)
DX: J44.1 Chronic obstructive pulmonary disease with (acute) exacerbation (principal); I13.0 Hypertensive heart and chronic kidney disease with heart failure and stage 1 through stage 4 chronic kidney disease, or unspecified chronic kidney disease; R09.02 Hypoxemia; J43.9 Emphysema, unspecified; I48.91 Unspecified atrial fibrillation; T38.0X5A Adverse effect of glucocorticoids and synthetic analogues, initial encounter; Z86.711 Personal history of pulmonary embolism; Z87.891 Personal history of nicotine dependence; Z85.048 Personal history of other malignant neoplasm of rectum, rectosigmoid junction, and anus; F41.9 Anxiety disorder, unspecified; E86.1 Hypovolemia; E86.0 Dehydration; E11.22 Type 2 diabetes mellitus with diabetic chronic kidney disease; E09.65 Drug or chemical induced diabetes mellitus with hyperglycemia; D64.9 Anemia, unspecified; G47.30 Sleep apnea, unspecified; G89.29 Other chronic pain; I50.9 Heart failure, unspecified; N18.9 Chronic kidney disease, unspecified; Z93.3 Colostomy status; Z99.81 Dependence on supplemental oxygen

== ENCOUNTER 2018-12-10 12:12 | Inpatient (IN) | payer MEDICARE, BC | END 2018-12-15 14:25 | disposition home health service (06) | DRG 190 | LOC: C.ER 12:12 → C.9E 14:50 → C.3T 16:17 | PROVIDERS: ADMIT Internal Medicine | PROC: 5A09457 Assistance with Respiratory Ventilation, 24-96 Consecutive Hours, Continuous Positive Airway Pressure (ICD-10-PCS; principal; 2018-12-13) ==

== ENCOUNTER 2018-12-30 09:56 | Inpatient (IN) | payer MEDICARE, BC | END 2019-01-04 13:43 | disposition home or self-care (01) | LOC: C.ER 09:56 → C.9E 11:09 → C.6T 12:50 ==